=== PATIENT | male | born 1955 | race Caucasian/White ===

== ENCOUNTER → 2019-10-15 08:51 | Outpatient (CLI) | payer BC, SELFPAY ==
--- NOTE | 2019-10-15 08:57 | US_ITS ---
PROCEDURE: US ABDOMEN LIMITED CLINICAL INDICATION: ELEVATED LIVER ENZYMES COMPARISON: No exams were available for comparison FINDINGS: PANCREAS: Unremarkable. No obvious mass or abnormal fluid collection. No ductal dilatation LIVER: There is diffuse increased echogenicity of the liver with poor through transmission of sound consistent with fatty liver RIGHT KIDNEY: Unremarkable. Normal size and echogenicity. No hydronephrosis GALLBLADDER: Status post cholecystectomy. Common bile duct is normal at 3 mm. IMPRESSION: Fatty liver otherwise negative Dictated by: Anoop Bowser MD 10/15/2019 20:09 Electronically signed by Anoop Bowser MD in [place] 10/15/2019 20:09
== END ==
PROVIDERS: PCP Internal Medicine; Visit Provider Internal Medicine
DX: R74.8 Abnormal levels of other serum enzymes (principal)
CPT/HCPCS: 76705

== ENCOUNTER 2021-04-10 10:03 | Emergency (ER) | payer BC, SELFPAY ==
[2021-04-10 10:06] VITALS: BP 114/72; PULSE 86; RESP 19; TEMP 36.7; O2SAT 95; BMI 33.2
[2021-04-10 10:17] VITALS: BP 114/72; PULSE 86; RESP 19; TEMP 36.7; O2SAT 95
--- NOTE | 2021-04-10 10:32 | HMH.EDUTC ---
[facility] Disposition Clinical Impression: Left leg cellulitis Disposition: Home, Self-Care Condition on Discharge: Good Instructions: Cellulitis Additional Instructions: Apply warm wet compresses to the affected sites three or four times per day for 15 minutes as tolerated. Take the antibiotics as directed. Elevate your leg as much time as tolerated. Follow up with your regular doctor. GO TO THE ER FOR ANY WORSENING SYMPTOMS OR CONCERNS Prescriptions: Mupirocin [Bactroban 2% Ointment 22gm tube] 1 applicatio TP TID 7 Days #1 tube Transmission Status: Received by [facility] # cephALEXin [cephALEXin 500mg capsule] 500 mg PO Q6H 10 Days #40 cap Transmission Status: Received by [facility] # Referrals: Murray Prajapati [Primary Care Provider] - Time of Disposition: 10:42 Medical Decision Making - Medical Records Medical records reviewed: No: I reviewed the patient's medical records. - Juni Inquiry Pt receiving controlled substance: No Vital Signs: 04/10/21 10:06 04/10/21 10:17 Temperature 98.0 F 98.0 F Temperature Source Oral Pulse Rate 86 Pulse Rate [Left] 86 Respiratory Rate 19 19 Blood Pressure 114/72 Blood Pressure [Right Arm] 114/72 Blood Pressure Mean [Right Arm] 86 02 Sat by Pulse Oximetry 95 [facility] HPI - General Stated complaint: sore on left leg Time Seen by Provider: 04/10/21 10:32 Mode of Arrival: Ambulatory Source of Information: Patient Limitations: No Limitations Description of Symptoms (Recalled from Triage Doc. by RN): Pt c/o left lower leg swelling and redness HEENT Symptoms (Recalled from RN notes): No Resp Symptoms (Recalled from RN notes): No Skin Symptoms (Recalled from RN notes): Yes MS Symptoms (Recalled from RN notes): No Functional Status (Recalled from RN notes): wnl - History of Present Illness Provider Complaint: He states that for the past 2 days he has had a red area on his left lower leg. He denies any injury. He denies any fever or chills, chest pain, and shortness of breath. - Related Data Home Medications Medication Instructions Recorded Confirmed atorvastatin 10 mg tablet 10 mg PO DAILY 04/01/21 04/01/21 lisinopril 20 mg tablet 20 mg PO DAILY 04/01/21 04/01/21 Previous Rx's Medication Instructions Recorded Mupirocin [Bactroban 2% Ointment 1 applicatio TP TID 7 Days #1 tube 04/10/21 22gm tube] cephALEXin [cephALEXin 500mg 500 mg PO Q6H 10 Days #40 cap 04/10/21 capsule] Allergies Allergy/AdvReac Type Severity Reaction Status Date / Time No Known Allergies Allergy Verified 04/10/21 10:16 - Worker's Comp Is this a Worker's Comp case?: No [facility] History - Hepatitis A Screen Drug use history?: No High risk sexual behaviors?: No History of sexually transmitted infection?: No Currently employed?: No Childcare worker?: No Do you have indoor plumbing?: Yes Do you have electricity?: Yes Attestation statement:: This patient has been screened for Hepatitis A risk factors. I have reviewed the patient's past medical history: Yes Medical History: Reports:: Hyperlipidemia, Hypertension Other Medical History: Reports: Arthritis Other Surgeries: Yes: No Previous Surgery, Cholecystectomy, Hernia Repair Amputation: No Fractures: No - Social History Smoking Status: Never smoker Alcohol Intake: current Alcohol Intake Frequency:: 0-2 drinks per day Substance Use Type: denies use Occupational Status: other Housing: house Household Members: spouse Family Hx:: Heart Attack ROS Obtained: Yes All systems reviewed & no additional complaints - Constitutional Constitutional: Denies chills, Denies fever(s) - ENT Ears, Nose, Mouth, and Throat: Denies dizziness, Denies otalgia, Denies sore throat - Cardiovascular Cardiovascular: Denies chest pain - Respiratory Respiratory: Denies chest congestion, Denies cough, Denies dyspnea, Denies stridor, Denies wheezing - Gastrointestinal G
== END 2021-04-10 10:48 | disposition home or self-care (01) ==
PROVIDERS: Emergency Provider Nurse Practitioner Family; PCP Internal Medicine
DX: L03.116 Cellulitis of left lower limb (principal); I10 Essential (primary) hypertension; E78.5 Hyperlipidemia, unspecified; Z79.899 Other long term (current) drug therapy
CPT/HCPCS: 99202; G0463

== ENCOUNTER → 2021-12-09 09:37 | Outpatient (CLI) | payer BC, SELFPAY | PROVIDERS: Visit Provider Nurse Practitioner | DX: Z20.822 Contact with and (suspected) exposure to COVID-19 (principal) | CPT/HCPCS: C9803; U0003; U0005 ==

== ENCOUNTER → 2022-03-01 13:37 | Outpatient (CLI) | payer BC, SELFPAY ==
[2022-03-01 15:08] LABS: Basophils % 0.6 % (0.1-2.0); Eosinophils # 0.1 K/mm3 (0.0-0.4); Eosinophils % 1.8 % (0.1-12.0); Hematocrit 45.4 % (42.0-52.0); Hemoglobin 15.4 g/dL (14.1-18.0); Lymphocytes # 1.8 K/mm3 (0.7-4.5); Mean Corpuscular HGB Conc 33.9 g/dL (31.8-35.4); Mean Corpuscular Hemoglobin 32.5 pg (27.0-31.2); Mean Corpuscular Volume 95.9 fl (80-94); Mean Platelet Volume 11.1 fl (7.4-10.4); Monocytes # 0.5 K/mm3 (0.1-1.0); Monocytes % 8.9 % (1.7-9.3); Neutrophils % 55.7 % (37.0-80.0); Platelet Count 129 K/mm3 (142-424); Red Blood Count 4.73 M/mm3 (4.60-6.20); Red Cell Distribution Width 14.4 % (11.5-17.5); White Blood Count 5.4 K/mm3 (4.8-10.8)
[2022-03-01 17:28] LABS: Alanine Aminotransferase 108 U/L (12-78); Albumin Level 3.9 g/dl (3.5-5.0); Albumin/Globulin Ratio 1.6 (1.1-1.8); Alkaline Phosphatase 156 U/L (38-126); Anion Gap 11.1 mEq/L (5-15); Aspartate Amino Transferase 92 U/L (17-59); Blood Urea Nitrogen 12 mg/dl (9-20); Calcium 8.8 mg/dl (8.4-10.2); Carbon Dioxide 27 mmol/L (22.0-30.0); Chloride 104 mmol/L (98-107); Chol/HDL Ratio 2.8 (1-3.5); Cholesterol 158 mg/dl (140-200); Estimated Glomerular Filt Rate 97 ml/min (>60); GFR (African American) 117 ML/MIN (>60); Globulin 2.5 g/dL (1.3-3.2); Glucose 69 mg/dl (74-100); HDL Cholesterol 56 mg/dl (40-60); Potassium 4.1 mmoL/L (3.5-5.1); Sodium 138 mmol/L (136-145); Total Protein,Serum 6.4 g/dl (6.3-8.2); Triglycerides 98 mg/dl (30-150); VLDL Cholesterol 20 mg/dL (0-40)
[2022-03-01 17:39] LABS: Direct LDL Cholesterol 70.85 mg/dL (100-129)
[2022-03-01 18:01] LABS: Prostate Specific Ag Screen 3.7 ng/ml (0.0-4.0)
== END ==
PROVIDERS: Visit Provider Internal Medicine
DX: I10 Essential (primary) hypertension (principal); E78.5 Hyperlipidemia, unspecified; K75.81 Nonalcoholic steatohepatitis (NASH); N40.1 Benign prostatic hyperplasia with lower urinary tract symptoms; Z12.5 Encounter for screening for malignant neoplasm of prostate
CPT/HCPCS: 80053; 80061; 85025; G0103

== ENCOUNTER → 2022-09-14 12:47 | Outpatient (CLI) | payer BC, SELFPAY ==
[2022-09-14 16:59] LABS: Basophils % 0.8 % (0.1-2.0); Eosinophils # 0.1 K/mm3 (0.0-0.4); Eosinophils % 3.7 % (0.1-12.0); Hematocrit 47.1 % (42.0-52.0); Hemoglobin 15.8 g/dL (14.1-18.0); Lymphocytes # 1.6 K/mm3 (0.7-4.5); Lymphocytes % 41.5 % (10-50); Mean Corpuscular HGB Conc 33.5 g/dL (31.8-35.4); Mean Corpuscular Hemoglobin 32.3 pg (27.0-31.2); Mean Corpuscular Volume 96.5 fl (80-94); Mean Platelet Volume 11.6 fl (7.4-10.4); Monocytes # 0.4 K/mm3 (0.1-1.0); Monocytes % 10.5 % (1.7-9.3); Neutrophils # 1.7 K/mm3 (1.8-7.8); Neutrophils % 43.5 % (37.0-80.0); Platelet Count 93 K/mm3 (142-424); Red Blood Count 4.88 M/mm3 (4.60-6.20); Red Cell Distribution Width 14.4 % (11.5-17.5); White Blood Count 3.9 K/mm3 (4.8-10.8)
[2022-09-14 18:34] LABS: Alanine Aminotransferase 195 U/L (12-78); Albumin Level 3.5 g/dl (3.5-5.0); Albumin/Globulin Ratio 1.3 (1.1-1.8); Alkaline Phosphatase 193 U/L (38-126); Aspartate Amino Transferase 242 U/L (17-59); Bilirubin,Total 1.8 mg/dl (0.2-1.3); Blood Urea Nitrogen 12 mg/dl (9-20); Calcium 8.5 mg/dl (8.4-10.2); Carbon Dioxide 27 mmol/L (22.0-30.0); Chloride 102 mmol/L (98-107); Chol/HDL Ratio 2.9 (1-3.5); Cholesterol 159 mg/dl (140-200); Estimated Glomerular Filt Rate 96 ml/min (>60); GFR (African American) 117 ML/MIN (>60); Globulin 2.6 g/dL (1.3-3.2); Glucose 66 mg/dl (74-100); HDL Cholesterol 54 mg/dl (40-60); Sodium 138 mmol/L (136-145); Total Protein,Serum 6.1 g/dl (6.3-8.2); Triglycerides 85 mg/dl (30-150); VLDL Cholesterol 17 mg/dL (0-40)
[2022-09-14 18:45] LABS: Direct LDL Cholesterol 76.03 mg/dL (100-129)
== END ==
PROVIDERS: PCP Internal Medicine; Visit Provider Internal Medicine
DX: I10 Essential (primary) hypertension (principal); E78.5 Hyperlipidemia, unspecified; K75.81 Nonalcoholic steatohepatitis (NASH)
CPT/HCPCS: 80053; 80061; 85025

== ENCOUNTER → 2023-03-31 11:34 | Outpatient (CLI) | payer BC, SELFPAY ==
[2023-03-31 12:41] LABS: Basophils # 0.1 K/mm3 (0-0.2); Basophils % 0.9 % (0.1-2.0); Eosinophils # 0.1 K/mm3 (0.0-0.4); Eosinophils % 2.2 % (0.1-12.0); Hematocrit 43.6 % (42.0-52.0); Hemoglobin 14.7 g/dL (14.1-18.0); Lymphocytes # 2.3 K/mm3 (0.7-4.5); Lymphocytes % 44.1 % (10-50); Mean Corpuscular HGB Conc 33.7 g/dL (31.8-35.4); Mean Corpuscular Hemoglobin 31.4 pg (27.0-31.2); Mean Platelet Volume 10.8 fl (7.4-10.4); Monocytes # 0.4 K/mm3 (0.1-1.0); Neutrophils # 2.3 K/mm3 (1.8-7.8); Neutrophils % 44.8 % (37.0-80.0); Platelet Count 95 K/mm3 (142-424); Red Blood Count 4.69 M/mm3 (4.60-6.20); Red Cell Distribution Width 14.3 % (11.5-17.5); White Blood Count 5.2 K/mm3 (4.8-10.8)
[2023-03-31 13:23] LABS: Alanine Aminotransferase 41 U/L (12-78); Albumin Level 3.4 g/dl (3.5-5.0); Albumin/Globulin Ratio 1.5 (1.1-1.8); Alkaline Phosphatase 171 U/L (38-126); Anion Gap 14.7 mEq/L (5-15); Aspartate Amino Transferase 59 U/L (17-59); Bilirubin,Total 1.8 mg/dl (0.2-1.3); Blood Urea Nitrogen 10 mg/dl (9-20); Calcium 8.4 mg/dl (8.4-10.2); Carbon Dioxide 25 mmol/L (22.0-30.0); Chloride 103 mmol/L (98-107); Chol/HDL Ratio 2.3 (1-3.5); Cholesterol 132 mg/dl (140-200); Estimated Glomerular Filt Rate 112 ml/min (>60); GFR (African American) 136 ML/MIN (>60); Globulin 2.2 g/dL (1.3-3.2); Glucose 77 mg/dl (74-100); HDL Cholesterol 58 mg/dl (40-60); Potassium 3.7 mmoL/L (3.5-5.1); Sodium 139 mmol/L (136-145); Total Protein,Serum 5.6 g/dl (6.3-8.2); Triglycerides 86 mg/dl (30-150); VLDL Cholesterol 17 mg/dL (0-40)
[2023-03-31 13:53] LABS: Prostate Specific Ag Screen 3.8 ng/ml (0.0-4.0)
== END ==
PROVIDERS: PCP Internal Medicine; Visit Provider Internal Medicine
DX: I10 Essential (primary) hypertension (principal); E78.5 Hyperlipidemia, unspecified; K75.81 Nonalcoholic steatohepatitis (NASH); N40.1 Benign prostatic hyperplasia with lower urinary tract symptoms; Z12.5 Encounter for screening for malignant neoplasm of prostate
CPT/HCPCS: 80053; 80061; 85025; G0103

== ENCOUNTER 2024-05-08 15:00 | Outpatient (CLI) | payer BC, SELFPAY ==
[2024-05-08 14:26] LABS: Basophils % 0.7 % (0.1-2.0); Eosinophils # 0.1 K/mm3 (0.0-0.4); Hematocrit 48.1 % (42.0-52.0); Hemoglobin 15.8 g/dL (14.1-18.0); Lymphocytes # 2.5 K/mm3 (0.7-4.5); Lymphocytes % 44.6 % (10-50); Mean Corpuscular HGB Conc 32.8 g/dL (31.8-35.4); Mean Corpuscular Hemoglobin 31.8 pg (27.0-31.2); Mean Corpuscular Volume 96.9 fl (80-94); Mean Platelet Volume 11.3 fl (7.4-10.4); Monocytes # 0.4 K/mm3 (0.1-1.0); Monocytes % 6.8 % (1.7-9.3); Neutrophils # 2.6 K/mm3 (1.8-7.8); Neutrophils % 45.9 % (37.0-80.0); Platelet Count 78 K/mm3 (142-424); Red Blood Count 4.97 M/mm3 (4.60-6.20); White Blood Count 5.6 K/mm3 (4.8-10.8)
[2024-05-08 14:54] LABS: Alanine Aminotransferase 57 U/L (12-78); Albumin Level 3.3 g/dl (3.5-5.0); Albumin/Globulin Ratio 1.3 (1.1-1.8); Alkaline Phosphatase 149 U/L (38-126); Anion Gap 9.8 mEq/L (5-15); Aspartate Amino Transferase 85 U/L (17-59); Bilirubin,Total 2.6 mg/dl (0.2-1.3); Blood Urea Nitrogen 7 mg/dl (9-20); Calcium 8.7 mg/dl (8.4-10.2); Carbon Dioxide 26 mmol/L (22.0-30.0); Chloride 107 mmol/L (98-107); Chol/HDL Ratio 2.7 (1-3.5); Cholesterol 148 mg/dl (140-200); Estimated Glomerular Filt Rate 112 ml/min (>60); GFR (African American) 135 ML/MIN (>60); Globulin 2.5 g/dL (1.3-3.2); Glucose 72 mg/dl (74-100); HDL Cholesterol 54 mg/dl (40-60); Potassium 3.8 mmoL/L (3.5-5.1); Sodium 139 mmol/L (136-145); Total Protein,Serum 5.8 g/dl (6.3-8.2); Triglycerides 74 mg/dl (30-150); VLDL Cholesterol 15 mg/dL (0-40)
[2024-05-08 15:04] LABS: Direct LDL Cholesterol 75.13 mg/dL (100-129)
[2024-05-08 15:23] LABS: Prostate Specific Ag Screen 4.5 ng/ml (0.0-4.0)
== END 2024-05-08 23:59 | disposition home or self-care (01) ==
LOC: LAB.DROPOF 15:02
PROVIDERS: PCP Internal Medicine; Visit Provider Internal Medicine
DX: Z12.5 Encounter for screening for malignant neoplasm of prostate (principal); I10 Essential (primary) hypertension; E78.5 Hyperlipidemia, unspecified; K75.81 Nonalcoholic steatohepatitis (NASH)
CPT/HCPCS: 80053; 80061; 85025; G0103

== ENCOUNTER 2025-05-15 14:15 | Outpatient (CLI) | payer BC, SELFPAY ==
--- OUTSIDE RECORDS SUMMARY | 2025-03-28 08:20 | XMS_ITS | Encounter Summary ---
Author Organization [facility] Address [address] [place] [address] Care Team Providers Care Engineering Recruiter Name Role Phone Murray Prajapati MD Primary Care Provider [phone] Jaja Camara VP ORGANIZATIONAL DEVELOPMENT Unavailable [phone] Reason for Visit * Consultation (Routine) - Closed Specialty Diagnoses / Procedures Referred By Silverio barone Referred To Contact Transplant Diagnoses End-stage liver disease (CMS/HCC) Marco Joiner MD [address] [facility] [address] [place] [phone] Phone: tel: fax: [facility] [address] [address] Phone: tel: fax: Referral ID Status Reason Start Date Expiration Date V isits Requested Visits Authorized [id number] Closed Specialty Services Required 03/27/2025 09/26/2026 1 1 Encounter Details Date Type Department Care Team (Late st Contact Info) Description 03/28/2025 8:20 AM EDT Office Visit [facility] [address] [facility] [address] [place] [phone] Virginia Campa MD [address] [facility] [address] [place] [phone] Other cirrhosis of liver (CMS/HCC) (Primary Dx); Pre-transplant evaluation for liver transplant; Cellulitis of left lower extremity; End-stage liver disease (CMS/HCC); Esophageal varices without bleeding, unspecified esophageal varices type (CMS/HCC); Alcohol use disorder; Primary prostate adenocarcinoma (CMS/HCC); History of liver biopsy; 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; Primary hypertension; Hyperbilirubinemia Social History Tobacco Use Types Packs/Day Years Used Date Smoking Tobacco: Never Smokeless Tobacco: Never PHQ-2 Answer Date Recorded Patient Health Questionnaire-2 Score 0 03/28/2025 PHQ-2A Answer Date Recorded Patient Health Questionnaire-2 Score 0 05/04/2023 Sex and Gender Information Value Date Recorded Sex Assigned at Not on file Legal Sex Male 8:25 PM EDT Gender Identity Not on file Sexual Orientation Not on file documented as of this encounter Last Filed Vital Signs Vital Sign Reading Time Taken Comments Blood Pressure 127/81 03/28/2025 6:46 AM EDT Pulse 80 03/28/2025 6:46 AM EDT Temperature 36.5 C (97.7 F) 03/28/2025 6:46 AM EDT Respiratory Rate 16 03/28/2025 6:46 AM EDT Oxygen Saturation 95% 03/28/2025 6:46 AM EDT Inhaled Oxygen Concentration - - Weight 112 kg (246 lb 14.6 oz) 03/28/2025 6:46 A M EDT Height 175.3 cm (5' 9 ) 03/28/2025 6:46 AM EDT Body Mass Index 36.46 03/28/2025 6:46 AM EDT documented in this encounter Functional Status * Over the past 2 weeks, how often have you been bothered by any of the following problems? Question Answer Date of Assessment Author Little interest or pleasure in doing things Not at all 03/28/2025 6:50 AM EDT Wm Harding Feeling down, depressed, or hopeless Not at all 03/28/2025 6:50 AM EDT Wm Harding Patient Health Questionnaire -2 Score 0 03/28/2025 6:50 AM EDT Wm Harding documented as of this encounter Miscellaneous Notes * Clinician Note - Pepito Sapp - 03/28/2025 8:20 AM EDT I visited Eber to introduce precision devices inspector/tester support and establish rapport. I provided supportive listening as patient spoke about his health journey and shared about his lifeand career. I made him aware of the ongoing availability of precision devices inspector/tester support and will follow up as able to build rapport and assess for needs related to spiritual and emotional support. * Patient Instructions - Virginia Campa MD - 03/28/2025 8:20 AM EDT See PCP pat re: cellulitis/infection in your leg Stop lisinopril and start Carvedilol 3.125mg twice a day to prevent varices from bleeding Monitor your BP, if BP is> 140, let us know, we can increase carvedilol Bactrim antibiotics sent to your pharmacy CT liver in the next few weeks to followup prior liver lesion * Progress Notes - Virginia Campa MD - 03/28/2025 8:20 AM EDT Referring provider: Caleb Suresh MD Subjective: Chief complaint: consult for transplant evaluation History of Present Illness: Mr. Eber Loew is here for initial consultation for transplant evaluation. Cirrhosis diagnosed 2022- had a 3m LR3 in 2022- biopsied- and this showed cirrhosis and no malignancy Had increased alcohol intake 4-6 shots/week during initial transplant evaluation several years ago Reports he is abstinent for 3-4months, then resumes occasional alcohol around 2- 3 glasses of wine afew times a week to 2 shots of bourbon a few times a week, last drink about a week ago. Compensated Denies melena, hematemesis, hematochezia, abdominal distention, change in mental status, jaundice. Had recent biopsy in left leg 10 days ago and had squamous cell skin cancer Has had mild bilateral leg edema the last few months Erythema started a few days ago, and had fever 101 Saw dermatology recently- who recommended mupirocin and steroid cream, but this did not help and his bag printer recommended him to see hepatology due to his cirrhosis and noted jaundice His bilirubin was 3 in July and 3.7 today Recently diagnosed with prostate adenoCA, 02/11, tanika score 4+3=7, localized to left id, left apx,left peripheral zone; psa 4.7; decipher genorisk group: high 0.81 Planning robot-assisted laparoscopic prostatectomy with b/l pelvic lymph node dissection Pt reports that he is seeking a 2nd opinion with [facility], scheduled next month Last imaging PET 01/22: no FDG in liver; psma avid lesion, no distant/local met US 08/13: cirrhosis; no obvious focal liver lesion EGD 08/13: gr1 ev; moderate PHG no focal liver lesion Colonoscopy 01/202323 grade 2 internal hemorrhoids, diminutive colonic polyps x3 (tubular adenoma in ascending and hyperplastic polyp (sigmoid)' Past Medical History: Medical History[1] Past Surgical History: Surgical History[2] Social History: lives with , no history of illicit drug use/alcohol/smoking Family History: No family history of liver disease or cancer Review of Systems: 14-point review of systems was negative, except as per HPI. Medications: Current Medications[3] Objective: Physical Exam Visit Vitals BP 127/81 Pulse 80 Temp 36.5 ??C (97.7 ??F) Ht 1.753 m (5' 9 ) Wt 112 kg (246 lb 14.6 oz) SpO2 95% BMI 36.46 kg/m?? General : no acute distress, no peripheral and temporal muscle wasting Skin : no jaundice, no spider telangiectasias or palmar erythema; see description of left leg below Eyes : mild scleral icterus , pink conjunctivae ENMT : intact, mucous membranes moist, no apparent injury Head/Neck : neck supple, no apparent injury Resp/Thorax : normal respiratory effort, patent airways, clear to auscultation bilaterally, normal breath sounds Cardiovascular: regular rate and rhythm, no murmurs Gastrointestinal : soft, non-tender, no hepatomegaly, no splenomegaly, no ascites Musculoskeletal ROM Intact, No Joint Swelling, Normal Strength Extremities : moderate bilateral leg edema, no cyanosis; left leg is moderately erythematous Neurological : alert and oriented x 4, absence of asterixis, no focal deficit Lymphatics : no significant lymphadenopathy Psychological : appropriate mood and behavior Labs in last 18 hours CBC WBC 6.65 Hb 15.2 Plt 92 (L) Hct 45.2 ANC ?? INR 1.5 (H), PTT ??, Anti-Xa ?? BMP Na 139 Cl 105 BUN 10 Glu 131 (H) K 3.6 Co2 24 Cr 0.82 Ca 8.5 (L) iCa ?? Mg ??, Phos ?? Lactate ?? LFT AST 96 (H) AlkPhos 170 (H) T Prot 5.9 (L) ALT 53 (H) Bili 3.7 (H) Alb ?? D.Bili ?? Assessment and Plan Diagnoses and all orders for this visit: Other cirrhosis of liver (CMS/HCC) (Primary) Pre-transplant evaluation for liver transplant Cellulitis of left lower extremity - Blood Culture (Aerobic/Anaerobet Set); Future - Discontinue: sulfamethoxazole-trimethoprim (Bactrim DS) 800-160 MG tablet; Take 1 tablet by mouth2 times a day for 7 days. - sulfamethoxazole-trimethoprim (Bactrim DS) 800-160 MG tablet; Take 2 tablets by mouth 2 times a day for 7 days. End-stage liver disease (CMS/HCC) - Initial Clinic Evaluation - Transplant Hepatology Esophageal varices without bleeding, unspecified esophageal varices type (CMS/HCC) - carvedilol (Coreg) 3.125 MG tablet; Take 1 tablet by mouth 2 times a day. 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 Primary hypertension Hyperbilirubinemia Compensated cirrhosis Alcohol use disorder Recent diagnosis of localized prostate cancer ([place] 7) MELD score MELD 3.0: 16 at 03/28/2025 6:34 AM MELD-Na: 16 at 03/28/2025 6:34 AM Calculated from: Serum Creatinine: 0.82 mg/dL (Using min of 1 mg/dL) at 03/28/2025 6:34 AM Serum Sodium: 139 mmol/L (Using max of 137 mmol/L) at 03/28/2025 6:34 AM Total Bilirubin: 3.7 mg/dL at 03/28/2025 6:34 AM Serum Albumin: 3.4 g/dL at 03/28/2025 6:34 AM INR(ratio): 1.5 at 03/28/2025 6:34 AM Age at listing (hypothetical): 69 years Sex: Male at 03/28/2025 6:34 AM - I reviewed his urology notes: prostate adenoCA, 02/11, tanika score 4+3=7, localized to left id, left apx,left peripheral zone; psa 4.7; decipher genorisk group: high 0.81 and they were planning robot-assisted laparoscopic prostatectomy with b/l pelvic lymph node dissection Pt reports that he is seeking a 2nd opinion with [facility], scheduled next month - advised that his continued alcohol use after cirrhosis diagnosis, even if intermittent and recently diagnosed prostate cancer may affect his transplant candidacy but not an absolute contraindication - recommend to assess risk/staging of his prostate cancer to guide survival risk and time interval to liver transplant/wait time. Based on [place] [employer] of [employer]plantation: pre-transplant solid organ malignancy and organ transplant candidacy: a consensus expert opinion statement (AJT 2019; Juventino et al)--https://pubmed.ncbi.nlm.nih.gov/13131052: - if Low-volume intermediate risk with one of the following criteria: PSA >10, tanika 7 (grade group 2 or 3) or T2b-- If surveillance, no wait time; it treatment initiated nomogram (www.nomograms.org) predicts cancer-specific over the next 15 years <10%, no wait time needed before OLT - Advised importance of complete alcohol cessation and offered referral to addiction medicine for AUD treatment - offered to refer to addiction medicine, pt wanted to defer for now and reports that he will stop on his own - Defer transplant evaluation at this time. Left leg cellulitis; had recent skin biopsy showing squamous cell cancer by dermatology 10 days agoand started having erythema and episode of fever a few days ago - obtain blood culture - hx of MRSA in the past per pt - start Trimethoprim/Sulfamethoxazole 2tabs bid for 1 week - advised to followup with his PCP pat - his left skin SCC will not preclude LT History of 3cm LR3 liver lesion in 2022- this was biopsied and was negative and showed cirrhosis. Obtain CT liver. AFP today negative; no liver lesions on US 08/13 Esophageal varices, gr1 without history of bleeding HTN, on lisinopril 20mg/day - stop lisinopril and start Carvedilol 3.125mg twice a day to prevent varices from bleeding Health maintenance- follow-up hepatitis A and B serologies to assess need for vaccines. Colonoscopy 2022- small TA and 1 HP- repeat in 7 years Return to clinic in 2months for follow-up. A total of 82 minutes was spent during this visit for care coordination, including review of medical records and previous notes, obtaining history and physical exam, ordering tests, changes in medications, counseling patient about cirrhosis, natural history,prognosis, potential complications of cirrhosis and management of complications of cirrhosis, indications/contraindications for liver transplant, benefits/risks of transplant including process of transplant evaluation, concept of MELD score,instructions for management, consult with peers and clinical documentation in the patient's clinic note [1] Past Medical History: Diagnosis Date Hypertension [2] Past Surgical History: Procedure Laterality Date CHOLECYSTECTOMY 2009 lap KNEE ARTHROSCOPY W/ MENISCAL REPAIR UMBILICAL HERNIA REPAIR [3] Current Outpatient Medications: atorvastatin (Lipitor) 10 MG tablet, Take 10 mg by mouth 1 (one) time each day., Disp: , Rfl: clobetasol (Temovate) 0.05 % external solution, , Disp: , Rfl: DIPHENHYDRAMINE HCL, SLEEP, PO, Take 16 mg by mouth at night if needed (sleep)., Disp: , Rfl: lisinopril 20 MG tablet, Take 20 mg by mouth 1 (one) time each day., Disp: , Rfl: uhygpkhxbaif-rbcl-eprwyfnt-folic acid (Centrum) chewable tablet, Chew 1 tablet 1 (one) time each day., Disp: , Rfl: mupirocin (Bactroban) 2 % ointment, , Disp: , Rfl: sulfamethoxazole-trimethoprim (Bactrim DS) 800-160 MG tablet, Take 2 tablets by mouth 2 times a dayfor 7 days., Disp: 28 tablet, Rfl: 0 triamcinolone (Kenalog) 0.1 % ointment, Apply 1 Application topically 2 times a day., Disp: , Rfl: Vitamin E 450 MG (1000 UT) capsule, Take 1,000 Units by mouth 1 (one) time each day., Disp: , Rfl: Ascorbic Acid (VITAMIN C GUMMIE PO), Take 1 Chewable tablet by mouth 1 (one) time each day. (Patient not taking: Reported on 05/04/2023), Disp: , Rfl: carvedilol (Coreg) 3.125 MG tablet, Take 1 tablet by mouth 2 times a day., Disp: 60 tablet, Rfl: 2 Melatonin 5 MG tablet tablet, Take 10 mg by mouth at night if needed for sleep., Disp: , Rfl: psyllium (Metamucil) 58.6 % powder, Take 1 packet by mouth 1 (one) time each day., Disp: , Rfl: documented in this encounter Plan of Treatment Upcoming Encounters Date Type Department Care Team (Late st Contact Info) Description 05/30/2025 8:45 AM EDT Clinical Support [facility] [address] [facility] [address] [place] [phone] 05/30/2025 10:20 AM EDT Office Visit [facility] [place] [id number] [facility] [address] [place] [phone] Serjio Jacobo MD [address] [facility] [address] [place] [address] 06/12/2025 Hospital Encounter [facility] [address] [place] [address] Dyllan Paul MD [id number] [place] [address] 06/24/2025 2:45 PM EDT Office Visit [facility] [address] [place] [address] Dyllan Paul MD [id number] [place] [phone] Scheduled Procedures Name Priority Associated Diagnoses Date/Ti me PROSTATECTOMY, RADICAL, ROBOT-ASSISTED Prostate CA (CMS/HCC) documented as of this encounter Results * Blood Culture (Aerobic/Anaerobet Set) (03/28/2025 9:43 AM EDT) Culture No growth at day 5 KEELY 04/02/2025 11:01 AM EDT [facility] Blood Structure of part of right upper limb / Unknown Venipuncture / Unknown 03/28/2025 9:43 AM EDT 03/28/2025 10:12 AM EDT us Virginia Cmapa MD LAB MICROBIOLOGY - GENERAL ORDERABLES Final Result [facility] [address] [place] [address] documented in this encounter Visit Diagnoses Diagnosis Other cirrhosis of liver (CMS/HCC)- Primary Pre-transplant evaluation for liver transplant Cellulitis of left lower extremity End-stage liver disease (CMS/HCC) Other sequelae of chronic liver disease Esophageal varices without bleeding, unspecified esophageal varices type (CMS/HCC) Alcohol use disorder Primary prostate adenocarcinoma (CMS/HCC) Malignant neoplasm of prostate History of liver biopsy 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 Primary hypertension Unspecified essential hypertension Hyperbilirubinemia Disorders of bilirubin excretion documented in this encounter Additional Health Concerns Assessment Noted Time A fall risk assessment has been complete d for the patient 03/28/2025 6:50 AM EDT A Body Mass Index follow-up plan has been documented for the patient 03/28/2025 9:31 AM EDT documented as of this encounter Care Teams Engineering Recruiter Relationship Specialty Start Date End Date Murray Prajapati MD [address] [facility] [address] [place] [address] PCP - General 03/06/23 Jaja Camara APRN [address] [facility] [address] [place] [address] Referring Physician Gastroenterology 03/06/23 documented as of this encounter
--- OUTSIDE RECORDS SUMMARY | 2025-04-03 07:10 | XMS_ITS | Encounter Summary ---
Author Organization [facility] Address [address] [place] [address] Care Team Providers Care Foam Dispenser Name Role Phone Murray Prajapati MD Primary Care Provider [phone] Jaja Camara INTERNAL CONTROLS ANALYST Unavailable [phone] Reason for Referral * Imaging (Routine) - Closed Specialty Diagnoses / Procedures Referred By Silverio barone Referred To Contact Radiology Diagnoses End-stage liver disease (CMS/HCC) Alcoholic cirrhosis, unspecified whether ascites present (CMS/HCC) Hepatic lesion Procedures CT Liver Serjio Jacobo MD [address] [address] Phone: tel: fax: Referral ID Status Reason Start Date Expiration Date Visits Re quested Visits Authorized [id number] Closed 04/01/2025 10/01/2026 1 1 Reason for Visit * Imaging (Routine) - Closed Specialty Diagnoses / Procedures Referred By Silverio barone Referred To Contact Radiology Diagnoses End-stage liver disease (CMS/HCC) Alcoholic cirrhosis, unspecified whether ascites present (CMS/HCC) Hepatic lesion Procedures CT Liver Serjio Jacobo MD [address] [address] [address] Phone: tel: fax: Referral ID Status Reason Start Date Expiration Date Visits Re quested Visits Authorized [id number] Closed 04/01/2025 10/01/2026 1 1 Encounter Details Date Type Department Care Team (Latest Contact Info) Description 04/03/2025 7:10 AM EDT - 04/03/2025 11:59 PM EDT Hospital Encounter [facility] [address] [place] [address] End-stage liver disease (CMS/HCC); Alcoholic cirrhosis, unspecified whether ascites present (CMS/HCC); Hepatic lesion Discharge Disposition: Home or Self Care Social History Tobacco Use Types Packs/Day Years [...] on file documented as of this encounter Medications at Time of Discharge Ascorbic Acid (VITAMIN C GUMMIE PO) Take 1 Chewable tablet by mouth 1 (one) time each day. atorvastatin (Lipitor) 10 MG tablet Take 10 mg by mouth 1 (one) time each day. 04/10/2023 carvedilol (Coreg) 3.125 MG tabletIndications :Esophageal varices without bleeding, unspecified esophageal varices type (CMS/HCC) Take 1 tablet by mouth 2 times a day. 60 tablet 2 03/28/2025 clobetasol (Temovate) 0.05 % external solution 03/06/2025 DIPHENHYDRAMINE HCL, SLEEP, PO Take 16 mg by mouth at night if needed (sleep). ketoconazole (NIZOral) 2 % shampoo 03/06/2025 lisinopril 20 MG tablet Take 20 mg by mouth 1 (one) time each day. Melatonin 5 MG tablet tablet Take 10 mg by mouth at night if needed for sleep. multivitamin-iron -minerals-folic acid (Centrum) chewable tablet Chew 1 tablet 1 (one) time each day. mupirocin (Bactroban) 2 % ointment 03/26/2025 psyllium (Metamucil) 58.6 % powder Take 1 packet by mouth 1 (one) time each day. triamcinolone (Kenalog) 0.1 % ointment Apply 1 Application topically 2 times a day. 03/26/2025 Vitamin E 450 MG (1000 UT) capsule Take 1,000 Units by mouth 1 (one) time each day. sulfamethoxazole- trimethoprim (Bactrim DS) 800-160 MG tabletIndications :Cellulitis of left lower extremity Take 2 tablets by mouth 2 times a day for 7 days. 28 tablet 03/28/2025 documented as of this encounter Miscellaneous Notes * Laury Espino Hector Nancy Syed R - 04/03/2025 7:18 AM EDT Images from the original note were not included. 1639 Caring for Yourself after Contrast Imaging If you had ORAL contrast: ?? You can go back to your normal diet and activities as tolerated. ?? Drink plenty of fluids, unless told otherwise. If you had IV contrast: ?? You can go back to your normal diet and activities as tolerated. ?? Drink plenty of fluids, unless told otherwise. ?? Leave a bandage on the site for 30 minutes (where the IV was inserted or blood was drawn). If you had Intravesical (bladder) contrast: ?? Return to normal diet and activity. What you need to know about delayed reaction to IV contrast What is IV Contrast? ?? Contrast is a dye that is put into your body through an IV. ?? It is used for imaging scans such as CT scans and MRIs. ?? The contrast makes blood vessels, organs and other parts of your body show up better on the scan. What do I need to do after IV contrast? ?? Drink lots of fluids. This will help flush the contrast out of your system. ?? Drink 2-3 extra glasses or bottles of water within 4 hours of your scan. What is a contrast reaction? ?? A contrast reaction is a bad side effect from the contrast dye. ?? It is rare but it does happen. ?? They can be mild - such as sneezing, itching, or hives. ?? They can be severe - such as trouble breathing, throat swelling, and irregular heart beat. When do these reactions happen? ?? They often happen right after the contrast is injected. ?? Some happen hours after going home. Go to the nearest Emergency Department right away if you have any of these symptoms after you leavethe clinic or hospital. ?? Sneezing ?? Itching in your mouth, throat, eyes, ears, or skin ?? Rash or hives ?? Throwing up or stomach sickness ?? High heart rate or ?racing? of your heart ?? Feeling dizzy or woozy ?? Feeling short of breath or like you can?t take a deep breath ?? Feeling very anxious for no other reason It is very important that these reactions be treated. Tell the doctor or nurse that you are having a reaction to IV contrast dye. Do not ignore any sign of a reaction! All reactions must be assessed by a doctor. Call 911 if you are alone and your reaction is more than mild sneezing or itching. If you have a mild reaction, call to speak with a Radiologist, explain that you havehad a contrast reaction, as this needs to be added to your medical record. documented in this encounter Plan of Treatment Upcoming Encounters Date Type Department Care Team (Late st Contact Info) Description 05/30/2025 8:45 AM EDT Clinical Support [facility] [address] [place] [address] 05/30/2025 10:20 AM EDT Office Visit [facility] [address] [place] [address] Serjio Jacobo MD [address] [place] [address] 06/12/2025 Hospital Encounter [facility] [address] [place] [address] Dyllan Paul MD [address] [place] [address] 06/24/2025 2:45 PM EDT Office Visit [facility] [address] [place] [address] Dyllan Paul MD [address] [place] [address] Scheduled Procedures Name Priority Associated Diagnoses Date/Ti me PROSTATECTOMY, RADICAL, ROBOT-ASSISTED Prostate CA (CMS/HCC) documented as of this encounter Procedures Procedure Name Priority Date/Time Associated Diagnosis Comments CT ABDOMEN PELVIS W AND WO IV CONTRAST Routine 04/03/2025 8:21 AM EDT End-stage liver disease (CMS/HCC) Alcoholic cirrhosis, unspecified whether ascites present (CMS/HCC) Hepatic lesion documented in this encounter Results * CT Liver (04/03/2025 8:21 AM EDT) Anatomical Region Laterality Modality Abdomen, Pelvis Computed Tomogra phy Impressions 04/03/2025 9:01 AM EDT Focal Hepatic Observations: Multiple small hypoattenuating nodules throughout the liver. They do not show arterial phase hyperenhancement but are hypoenhancing to the normal hepatic parenchyma on the delayed phase. This suggests washout. This meets LR 3 criteria. Additional characterization with MRI is recommended CRITICAL RESULT: No. COMMUNICATION: Per this written report. LI-RADS M = Probably or definitely malignant but not HCC specific LI-RADS TI-V = Definitely tumor in vein LI-RADS 5 = Definitely hepatocellular carcinoma (concordant with OPTN*) LI-RADS 4 = Probably hepatocellular carcinoma LI-RADS 3 = Intermediate probability for hepatocellular carcinoma LI-RADS 2 = Probably benign LI-RADS 1 = Definitely benign LI-RADS NC = Not categorized secondary to image degradation or omission LI-RADS TR Nonviable - Treated, probably or definitely not viable LI-RADS TR Equivocal - Treated, equivocally viable LI-RADS TR Nonprogressing - Treated with radiation, masslike enhancement, which is stable or decreased in size over time after LRT LI-RADS TR Viable - Treated, probably or definitely viable LI-RADS TR Nonevaluable - Cannot be categorized due to image degradation or omission NOTE: LI-RADS categories should be interpreted in the context of other available data, such as biomarkers and the patient's prior probability of developing or having hepatocellular carcinoma. The LI-RADS classification of liver lesions has been adopted to standardize CT and MRI scan reporting in patients at risk for hepatocellular carcinoma. CT/MRI LI- RADS and US LI-RADS are consistent with and integrated into the [place] [employer] for the Study of Liver Diseases (AASLD) 2018 hepatocellular carcinoma (HCC) clinical practice guidance. LI-RADS criteria and documentation are available online at www.acr.org/Quality-Safety/Resources/LIRADS. This report utilizes LI-RADS version 2018 with updated Treatment Response Assessment (TRA) v2024. *OPTN and LI-RADS criteria for definite HCC are identical except for: 10-19 mm observations with nonrim APHE + nonperipheral washout but without enhancing capsule or threshold growth. Implication: Some LR-5 observations do not count as OPTN 5. Drafted by Quentin Oliva MD on 04/03/2025 8:53 AM Final report signed by Quentin Oliva MD on 04/03/2025 9:01 AM Narrative 04/03/2025 9:01 AM EDT CLINICAL INDICATION: Risk for hepatocellular carcinoma Liver failure TECHNIQUE: Multiple axial CT images were obtained of abdomen and pelvis following administration of IV contrast, Omnipaque 350, 100 mL. Images of the abdomen were obtained during arterial, portal venous, and delayed phases. The pelvis was imaged in portal venous phase. Reformatted images in the coronal and sagittal planes were generated from the axial data set to facilitate diagnostic accuracy. Precontrast axial CT images of the abdomen were also obtained. TOTAL DLP (Dose-Length Product): 2398.41 mGy.cm. Please note: The reported value represents the total of one or more individual components during the CT acquisition on this date and at this time, and as such, the same value may appear in more than one CT report depending on the interpreting/reporting physicians. Examination meets LI-RADS technical recommendations. COMPARISON: PETCT February 13, 2025, MRI abdomen March 03, 2023 FINDINGS: Liver, Gallbladder, Biliary Tract: There is cirrhosis of the liver. No arterially enhancing observation. There are multiple hypoenhancing nodules in the liver on the delayed phase. The largest located in hepatic segment 2 measures 13 mm (series 14 image 38). An additional reference nodules located in hepatic segment 5 measures 10 mm (series 14 image 51). Gallbladder is absent. No bile duct dilation. Hepatic Vasculature: Hepatic arterial anatomy is standard. The portal veins are patent. Focal Hepatic Observations: Multiple hypoattenuating nodules on the delayed phase which do not show arterial phase hyperenhancement. This suggests washout. LR 3. Extrahepatic Findings: Spleen: The spleen is enlarged measuring 15.5 cm. Other Solid Abdominal Organs: The pancreas, adrenal glands, and kidneys are normal. GI Tract/Mesentery/Peritoneum: There are paraesophageal varices. Unobstructed small bowel extends into a periumbilical hernia. The appendix is normal. No colonic inflammation. Pelvic Viscera: The bladder is normal. The prostate is large and heterogeneous. Lymph Nodes: No adenopathy is evident. Calcific atherosclerosis of aorta and branch vessels Free Fluid: No free fluid Musculoskeletal: There is a small lytic nodule in L1, likely vertebral hemangioma. Procedure Note Quentin Oliva MD - 04/03/2025 CLINICAL INDICATION: Risk for hepatocellular carcinoma Liver failure TECHNIQUE: Multiple axial CT images were obtained of abdomen and pelvis followingadministration of IV contrast, Omnipaque 350, 100 mL. Images of theabdomen were obtained during arterial, portal venous, and delayed phases.The pelvis was imaged in portal venous phase. Reformatted images in thecoronal and sagittal planes were generated from the axial data set tofacilitate diagnostic accuracy. Precontrast axial CT images of the abdomenwere also obtained. TOTAL DLP (Dose-Length Product): 2398.41 mGy.cm. Please note: The reportedvalue represents the total of one or more individual components during theCT acquisition on this date and at this time, and as such, the same valuemay appear in more than one CT report depending on theinterpreting/reporting physicians. Examination meets LI-RADS technical recommendations. COMPARISON: PETCT February 13, 2025, MRI abdomen March 03, 2023 FINDINGS: Liver, Gallbladder, Biliary Tract: There is cirrhosis of the liver. Noarterially enhancing observation. There are multiple hypoenhancing nodulesin the liver on the delayed phase. The largest located in hepatic segment2 measures 13 mm (series 14 image 38). An additional reference noduleslocated in hepatic segment 5 measures 10 mm (series 14 image 51). Gallbladder is absent. No bile duct dilation. Hepatic Vasculature: Hepatic arterial anatomy is standard. The portalveins are patent. Focal Hepatic Observations: Multiple hypoattenuating nodules on the delayed phase which do not showarterial phase hyperenhancement. This suggests washout. LR 3. Extrahepatic Findings: Spleen: The spleen is enlarged measuring 15.5 cm. Other Solid Abdominal Organs: The pancreas, adrenal glands, and kidneysare normal. GI Tract/Mesentery/Peritoneum: There are paraesophageal varices.Unobstructed small bowel extends into a periumbilical hernia. The appendixis normal. No colonic inflammation. Pelvic Viscera: The bladder is normal. The prostate is large andheterogeneous. Lymph Nodes: No adenopathy is evident. Calcific atherosclerosis of aortaand branch vessels Free Fluid: No free fluid Musculoskeletal: There is a small lytic nodule in L1, likely vertebralhemangioma. IMPRESSION: Focal Hepatic Observations: Multiple small hypoattenuating nodules throughout the liver. They do notshow arterial phase hyperenhancement but are hypoenhancing to the normalhepatic parenchyma on the delayed phase. This suggests washout. This meetsLR 3 criteria. Additional characterization with MRI is recommended CRITICAL RESULT: No. COMMUNICATION: Per this written report. LI-RADS M = Probably or definitely malignant but not HCC specific LI-RADS TI-V = Definitely tumor in vein LI-RADS 5 = Definitely hepatocellular carcinoma (concordant with OPTN*) LI-RADS 4 = Probably hepatocellular carcinoma LI-RADS 3 = Intermediate probability for hepatocellular carcinoma LI-RADS 2 = Probably benign LI-RADS 1 = Definitely benign LI-RADS NC = Not categorized secondary to image degradation or omission LI-RADS TR Nonviable - Treated, probably or definitely not viable LI-RADS TR Equivocal - Treated, equivocally viable LI-RADS TR Nonprogressing - Treated with radiation, masslike enhancement,which is stable or decreased in size over time after LRT LI-RADS TR Viable - Treated, probably or definitely viable LI-RADS TR Nonevaluable - Cannot be categorized due to image degradationor omission NOTE: LI-RADS categories should be interpreted in the context of otheravailable data, such as biomarkers and the patient's prior probability ofdeveloping or having hepatocellular carcinoma. The LI-RADS classificationof liver lesions has been adopted to standardize CT and MRI scan reportingin patients at risk for hepatocellular carcinoma. CT/MRI LI-RADS and USLI-RADS are consistent with and integrated into the [place] Associationfor the Study of Liver Diseases (AASLD) 2018 hepatocellular carcinoma(HCC) clinical practice guidance. LI-RADS criteria and documentation areavailable online at www.acr.org/Quality-Safety/Resources/LIRADS. Thisreport utilizes LI-RADS version 2018 with updated Treatment ResponseAssessment (TRA) v2024. *OPTN and LI-RADS criteria for definite HCC are identical except for:10-19 mm observations with nonrim APHE + nonperipheral washout butwithout enhancing capsule or threshold growth. Implication: Some LR-5observations do not count as OPTN 5. Drafted by Quentin Oliva MD on 04/03/2025 8:53 AM Final report signed by Quentin Oliva MD on 04/03/2025 9:01 AM Serjio Jacobo MD IMG CT PROCEDURES Final Result documented in this encounter Visit Diagnoses Diagnosis End-stage liver disease (CMS/HCC) Other sequelae of chronic liver disease Alcoholic cirrhosis, unspecified whether ascites present (CMS/HCC) Hepatic lesion documented in this encounter Administered Medications Inactive Administered Medications - up to 3 most recent administrations Medication Order MAR Action Action Date Dose Rate Site iohexol (OMNIPaque) 350 MG/ML injection 150 mL 150 mL, Intravenous, Once in imaging, 1 dose, Starting on Eunice 04/03/25 at 0718, Until Eunice 04/03/25 at 0810, Routine, Imaging Protocol Orders Given 04/03/2025 8:10 AM EDT 150 mL iohexol (OMNIPaque) 9 MG/ML oral contrast 500 mL 500 mL, Oral, Once in imaging, 1 dose, Starting on Eunice 04/03/25 at 0718, Until Eunice 04/03/25 at 0727, Routine, Imaging Protocol Orders Given 04/03/2025 7:27 AM EDT 500 mL documented in this encounter Additional Health Concerns Assessment Noted Time A fall risk assessment has been complete d for the patient 03/28/2025 6:50 AM EDT A Body Mass Index follow-up plan has been documented for the patient 03/28/2025 9:31 AM EDT documented as of this encounter Care Teams Foam Dispenser Relationship Specialty Start Date End Date Murray Prajapati MD [address] [facility] [address] [place] [address] PCP - General 03/06/23 Jaja Camara APRN [address] [place] [facility] [address] [place] [address] Referring Physician Gastroenterology 03/06/23 documented as of this encounter
--- OUTSIDE RECORDS SUMMARY | 2025-04-29 12:45 | XMS_ITS | Encounter Summary ---
Author Organization Healthcare Address [address] [place] [address] Care Team Providers Care Adoption Agent Name Role Phone Murray Prajapati MD Primary Care Provider [phone] Jaja Camara CREDIT RATING INSPECTOR Unavailable [phone] Dyllan Paul MD Unavailable [phone] Reason for Visit * Reason Comments neoplasm of prostate Second opinion Encounter Details Date Type Department Care Team (Late st Contact Info) Description 04/29/2025 12:45 PM EDT Consult [facility] [address] [place] [address] Dyllan Paul MD [address] [place] [address] Prostate cancer (CMS/HCC) (Primary Dx) Social History Tobacco Use Types Packs/Day Years Used Date Smoking Tobacco: Never Passive Smoke Exposure: Never Smokeless Tobacco: Never Tobacco Cessation:Counseling Given: Not Answered Alcohol Use Standard Drinks/Week Comments Not Currently 0 (1 standard drink = 0.6 oz pur e alcohol) PHQ-2 Answer Date Recorded Patient Health Questionnaire-2 Score 0 04/29/2025 PHQ-9 Answer Date Recorded Patient Health Questionnaire-9 Score 0 04/29/2025 PHQ-2A Answer Date Recorded Patient Health Questionnaire-2 Score 0 05/04/2023 Sex and Gender Information Value Date Recorded Sex Assigned at Not on file Legal Sex Male 8:25 PM EDT Gender Identity Not on file Sexual Orientation Not on file documented as of this encounter Last Filed Vital Signs Vital Sign Reading Time Taken Comments Blood Pressure 122/75 04/29/2025 12:45 PM EDT Pulse 66 04/29/2025 12:45 PM EDT Temperature 36.7 C (98.1 F) 04/29/2025 12:45 PM EDT Respiratory Rate 18 04/29/2025 12:45 PM EDT Oxygen Saturation 93% 04/29/2025 12:45 PM EDT Inhaled Oxygen Concentration - - Weight 116 kg (256 lb 2.8 oz) 04/29/2025 12:45 P M EDT Height 175.3 cm (5' 9 ) 04/29/2025 12:45 PM EDT Body Mass Index 37.83 04/29/2025 12:45 PM EDT documented in this encounter Functional Status * Over the past 2 weeks, how often have you been bothered by any of the following problems? Question Answer Date of Assessment Author Little interest or pleasure in doing things Not at all 04/29/2025 12:43 PM EDT Matt Sen Feeling down, depressed, or hopeless Not at all 04/29/2025 12:43 PM EDT Matt Sen Patient Health Questionnaire -2 Score 0 04/29/2025 12:43 PM EDT Matt Sen * Question Answer Date of Assessment Author Trouble falling or staying asleep, or sleeping too much Not at all 04/29/2025 12:43 PM EDT Gabriel Lawson Feeling tired or having indra le energy Not at all 04/29/2025 12:43 PM EDT Matt Sen Poor appetite or overeating Not at all 04/29/2025 12 :43 PM EDT Gabriel Sen Feeling bad about yourself - or that you are a failure or have let yourself or your family down Not at all 04/29/2025 12:43 PM EDT Gabriel Dao Trouble concentrating on thi ngs, such as reading the newspaper or watching television Not at all 04/29/2025 12:43 PM EDT Matt Sen Moving or speaking so slowly that other people could have noticed? Or the opposite - being so fidgety or restless that you have been moving around a lot more than usual. Not at all 04/29/2025 12:43 PM EDT Matt Sen Thoughts that you would be better off or hurting yourself in some way Not at all 04/29/2025 12:[address] Patient Health Questionnaire -9 Score 0 04/29/2025 12:43 PM EDT Matt Sen documented as of this encounter Miscellaneous Notes * Progress Notes - Ramiro Hartman, - 04/29/2025 12:45 PM EDT Images from the original note were not included. [facility] Urology Clinic Note 04/29/25 Assessment: Eber Lowe is a 70 y.o. 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 Decipher high-risk. PSMA PET scan showing no evidence of metastatic disease. I discussed with the patient the options for managing his prostate cancer. I discussed that his biopsy findings and PSA place him in the unfavorable intermediate risk category. I discussed in generalthe options for [id number] management would include radical prostatectomy and radiation therapy to the prostate with a short course of ADT. I discussed the risks and benefits of these approaches. I discussed radical prostatectomy at length, including the risks of pain, bleeding, damage to nearby structures, anesthetic risks, and risk of incomplete treatment or cancer recurrence. I discussedthe operative technique and expected postoperative course. I discussed the expected complications of prostatectomy including worsening erectile dysfunction and urinary incontinence. I discussed in contrast the risks and benefits of radiation including less upfront risk during treatment, but the longer-term risks of irritative bowel and bladder symptoms, hematuria or hematochezia, secondary cancers, and risk of recurrence or persistence of disease. I discussed the risks of androgen deprivation therapy including weakness, fatigue, worsening libido, and slow recovery of testosterone after treatment. I discussed that neither radiation nor surgery has better oncologic outcomes, and the decision s hould primarily be guided by his tolerance of the competing risks and benefits. After discussion, the patient says he would like to proceed with RALP. Patient will let us know if he wants to have this done at . Plan: - patient will call if he wants to schedule surgery. Сергей Hartman, DO PGY-3, Department of Urology Pager: [phone] ? CC: Prostate cancer HPI: Eber Lowe is a 70 y.o. M with who presents for a 2nd opinion of his unfavorable intermediate risk prostate cancer. Patient was diagnosed on biopsy on 01/22/2025 with grade group 3 disease in the left mid, left apex, and left peripheral zone with PNI and cribriform pattern 4. PSA is 4.7. His decipher test was high-risk. He underwent a PSMA PET scan, which did not demonstrate any evidence of metastatic disease, though did demonstrate a PET avid lesion in the left side of the prostate. Dr. Pereyra discussed leonora gement options with him and he elected to proceed with RALP. He presents today for 2nd opinion prior to undergoing treatment. He initially presented with kidney stones last year and was noted to have a large prostate. This prompted PSA surveillance, and eventually a biopsy on 01/22/25 with findings as above. He reports mild LUTS with post-void dribbling. He has good erectile function with no meds. [place] is very [place] 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 Drinks socially, prior heavy ETOH use. Daughter is radiation oncologist at [place] Symptoms: Dribbling but otherwise minimal LUTS. No ED. ECO I personally reviewed outside institution and internal imaging studies, imaging reports, labs, cultures, and provider notes as noted below and in the assessment and plan. PMHx: Past Medical History[1] PSHx: Surgical History[2] FHx: Family History[3] SHx: Social History Socioeconomic History Marital status: Spouse name: Not on file Number of children: Not on file Years of education: Not on file Highest education level: Not on file Occupational History Not on file Tobacco Use Smoking status: Never Passive exposure: Never Smokeless tobacco: Never Vaping Use Vaping status: Never Used Substance and Sexual Activity Alcohol use: Not Currently Drug use: Never Sexual activity: Yes Partners: Female control/protection: Post-menopausal Other Topics Concern Not on file Social History Narrative Not on file Social Drivers of Health Financial Resource Strain: Not on file Food Insecurity: No Food Insecurity (12/08/2023) Received from [email or web address] Food Insecurity Food run out past 12 months: Not on file Food did not last past 12 months: Not on file Transportation Needs: Not on file Physical Activity: Not on file Stress: Not on file Social Connections: Low Risk (12/08/2023) Received from [facility] Family and Community Support Help with Day to Day Activities: Not on file Feeling Lonely or Isolated: Not on file Intimate Partner Violence: Unknown (08/28/2023) Received from [facility] Abuse Screen Unsafe at Home or Work/School: Not on file Feels Threatened by Someone?: Not on file Does Anyone Keep You from Contacting Others or Doint Things Outside the Home?: Not on file Physical Sign of Abuse Present: Not on file Housing Stability: Low Risk (12/08/2023) Received from [facility] Housing Stability Living situation today: Not on file Living situation problems: Not on file Physical Exam: Vitals: 04/29/25 1245 BP: 122/75 Pulse: 66 Resp: 18 Temp: 36.7 ??C (98.1 ??F) SpO2: 93% GEN: NAD HEENT: NCAT, EOMI RESP: Equal bilateral chest rise, normal work of breathing CV: Appears well perfused ABD: Soft, nontender, nondistended. Laparoscopic and umbilical incisions well-healed. EXT: No gross deformities MSK: Normal ROM NEURO: No focal deficits, AOx3 PSYCH: Appropriate mood and affect Labs: UA: No results found for: SPECGRAV , PH , GLUCOSEUA , BILIRUBINUR , KETONESU , POCPROTUR , UROBILINPOC , RBCUR , NITRITE , WBCUR Prostate biopsy - 01/22/25 Decipher - 01/22/25 Imaging: PSMA PET - 02/13/25 mpMRI - 07/31/24 [1] Past Medical History: Diagnosis Date Cancer (CMS/HCC) january 26, 2025 Cirrhosis (CMS/HCC) 2021 History of methicillin resistant Staphylococcus aureus 2011 Hypertension Kidney stone various Substance abuse alcohol [2] Past Surgical History: Procedure Laterality Date CHOLECYSTECTOMY 2009 lap KNEE ARTHROSCOPY W/ MENISCAL REPAIR UMBILICAL HERNIA REPAIR [3] Family History Problem Relation Name Age of Onset Heart disease Mother Cosigned by Dyllan Paul MD at 04/30/2025 3:17 PM EDT Associated attestation - Dyllan Paul MD - 04/30/2025 3:17 PM EDT I saw and evaluated the patient with the resident/fellow. I discussed the case with the resident/fellow and agree with the findings and plan as documented. documented in this encounter Plan of Treatment Upcoming Encounters Date Type Department Care Team (Late st Contact Info) Description 05/30/2025 8:45 AM EDT Clinical Support [facility] [place] [address] [facility] [address] [place] [address] 05/30/2025 10:20 AM EDT Office Visit [facility] [place] [address] [facility] [address] [place] [address] Serjio Jacobo MD [address] [facility] [address] [place] [address] 06/12/2025 Hospital Encounter [facility] [address] [place] [address] Dyllan Paul MD [address] [facility] [address] [place] [address] 06/24/2025 2:45 PM EDT Office Visit [facility] Urology [address] [place] [address] Dyllan Paul MD [address] [facility] [address] [place] [address] Scheduled Procedures Name Priority Associated Diagnoses Date/Ti me PROSTATECTOMY, RADICAL, ROBOT-ASSISTED Prostate CA (CMS/HCC) documented as of this encounter Visit Diagnoses Diagnosis Prostate cancer (CMS/HCC)- Primary Malignant neoplasm of prostate documented in this encounter Additional Health Concerns 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 Assessment Noted Time PHQ-9 Depression Total Score: 0 04/29/20 25 12:43 PM EDT A fall risk assessment has been complete d for the patient 04/29/2025 12:44 PM EDT A Body Mass Index follow-up plan has been documented for the patient 04/30/2025 3:18 PM EDT documented as of this encounter Care Teams Adoption Agent Relationship Specialty Start Date End Date Murray Prajapati MD [facility] [address] [place] [address] PCP - General 03/06/23 Jaja Camara APRN [address] [place] [address] [address] [address] Referring Physician Gastroenterology 03/06/23 Dyllan Paul MD [address] [address] Surgeon Urology 04/29/25 documented as of this encounter
[2025-05-15 18:05] LABS: Alanine Aminotransferase 39 U/L (12-78); Albumin Level 3.2 g/dl (3.5-5.0); Albumin/Globulin Ratio 1.4 (1.1-1.8); Alkaline Phosphatase 176 U/L (38-126); Anion Gap 7.7 mEq/L (5-15); Aspartate Amino Transferase 79 U/L (17-59); Bilirubin,Total 4.1 mg/dl (0.2-1.3); Blood Urea Nitrogen 10 mg/dl (9-20); Carbon Dioxide 28 mmol/L (22.0-30.0); Chloride 104 mmol/L (98-107); Estimated Glomerular Filt Rate 111 ml/min (>60); GFR (African American) 135 ML/MIN (>60); Globulin 2.3 g/dL (1.3-3.2); Glucose 82 mg/dl (74-100); Potassium 3.7 mmoL/L (3.5-5.1); Sodium 136 mmol/L (136-145); Total Protein,Serum 5.5 g/dl (6.3-8.2)
--- OUTSIDE RECORDS SUMMARY | 2025-05-16 10:12 | XMS_ITS | Encounter Summary ---
Author Organization [facility] Address [address] [place] [address] Care Team Providers Care Wire Basket Maker Name Role Phone Murray Prajapati MD Primary Care Provider [phone] Jaja Camara BASIC ACOUSTIC ANALYST Unavailable [phone] Dyllan Paul MD Unavailable [phone] Encounter Details Date Type Department Care Team (Late Contact Info) Description 08/02/2024 Orders Only External Location [address] [place] [address] Provider, External Social History Tobacco Use Types Packs/Day Years Used Date Smoking Tobacco: Never Smokeless Tobacco: Never PHQ-2 Answer Date Recorded Patient Health Questionnaire-2 Score 0 05/04/2023 PHQ-2A Answer Date Recorded Patient Health Questionnaire-2 Score 0 05/04/2023 Sex and Gender Information Value Date Recorded Sex Assigned at Not on file Legal Sex Male 8:25 PM EDT Gender Identity Not on file Sexual Orientation Not on file documented as of this encounter Plan of Treatment Upcoming Encounters Date Type Department Care Team (Late Contact Info) Description 05/30/2025 8:45 AM EDT Clinical Support [facility] [address] [place] [address] 05/30/2025 10:20 AM EDT Office Visit [facility] [place] [address] [place] [address] Serjio Jacobo MD [address] [facility] [address] [place] [address] 06/12/2025 Hospital Encounter [facility]PERATING ROOM [address] [place] [address] Dyllan Paul MD [address] [facility] [place] [address] 06/24/2025 2:45 PM EDT Office Visit [facility] [address] [place] [address] Dyllan Paul MD [id number] [place] [address] Scheduled Procedures Name Priority Associated Diagnoses Date/Ti me PROSTATECTOMY, RADICAL, ROBOT-ASSISTED Prostate CA ([facility]) documented as of this encounter Procedures Procedure Name Priority Date/Time Associated Diagnosis Comments US OUTSIDE IMAGES 08/02/2024 11:00 AM EDT documented in this encounter Results * US OUTSIDE IMAGES (08/02/2024 11:00 AM EDT) Anatomical Region Laterality Modality Ultrasound 08/02/2024 11:0 0 AM EDT us External Provider IMG US PROCEDURES Final Result documented in this encounter Visit Diagnoses Not on filedocumented in this encounter Additional Health Concerns 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 Assessment Noted Time A fall risk assessment has been complete d for the patient 05/04/2023 8:15 AM EDT A Body Mass Index follow-up plan has been documented for the patient 05/04/2023 9:50 AM EDT documented as of this encounter Care Teams Wire Basket Maker Relationship Specialty Start Date End Date Murray Prajapati MD [address] [place], [place] [id number] PCP - General 03/06/23 Jaja Camara APRN [address] [facility] [address] [address] Referring Physician Gastroenterology 03/06/23 Dyllan Paul MD [address] [place] [address] Surgeon Urology 04/29/25 documented as of this encounter
--- OUTSIDE RECORDS SUMMARY | 2025-05-16 10:12 | XMS_ITS | Encounter Summary ---
Author Organization [facility] Address [address] [id number] Care Team Providers Care Supervisor Carbon Electrodes Name Role Phone Murray Prajapati MD Primary Care Provider [phone] Jaja Camara METAL TRADES INSTRUCTOR Unavailable [phone] Encounter Details Date Type Department Care Team (Late Contact Info) Description 03/20/2025 Telephone [facility] Urology [address] [place] [address] [place] [address] Social History Tobacco Use Types Packs/Day Years [...] on file documented as of this encounter Miscellaneous Notes * Telephone Encounter - Keri Waters - 03/20/2025 3:50 PM EDT Fax sent to [facility] Medical records, , for prostate biopsy report to be faxed to our office. Keri Waters RN documented in this encounter Plan of Treatment Upcoming Encounters Date Type Department Care Team (Late Contact Info) Description 05/30/2025 8:45 AM EDT Clinical Support [facility] [address] [place] [address] 05/30/2025 10:20 AM EDT Office Visit [facility] [address] [place] [address] Serjio Jacobo MD [address] [facility] [address] [place] [address] 06/12/2025 Hospital Encounter [facility] ROOM [address] [place] [address] Dyllan Paul MD [address] [place] [address] 06/24/2025 2:45 PM EDT Office Visit [facility] [address] [place] [address] Dyllan Paul MD [address] [place] [address] Scheduled Procedures Name Priority Associated Diagnoses Date/Ti me PROSTATECTOMY, RADICAL, ROBOT-ASSISTED Prostate CA ([facility]) documented as of this encounter Visit Diagnoses Not on filedocumented in this encounter Additional Health Concerns Assessment Noted Time A fall risk assessment has been complete d for the patient 05/04/2023 8:15 AM EDT A Body Mass Index follow-up plan has been documented for the patient 05/04/2023 9:50 AM EDT documented as of this encounter Care Teams Supervisor Carbon Electrodes Relationship Specialty Start Date End Date Murray Prajapati MD [address] [place], [place] [address] PCP - General 03/06/23 Jaja Camara APRN [address] [facility] [address] [place], [place] [address] Referring Physician Gastroenterology 03/06/23 documented as of this encounter
--- OUTSIDE RECORDS SUMMARY | 2025-05-16 10:12 | XMS_ITS | Encounter Summary ---
Author Organization [facility] Address [address] [place] [address] Care Team Providers Care Pasteurizing Supervisor Name Role Phone Murray Prajapati MD Primary Care Provider [phone] Jaja Camara CRIMINAL INTELLIGENCE SPECIALIST Unavailable [phone] Dyllan Paul MD Unavailable [phone] Encounter Details Date Type Department Care Team (Late Contact Info) Description 06/28/2024 Orders Only External Location [address] [place] [address] Provider, External Social History Tobacco Use Types [...] Description 05/30/2025 8:45 AM EDT Clinical Support [facility] [address] [place] [address] 05/30/2025 10:20 AM EDT Office Visit [facility] [place] [address] [place] [address] Serjio Jacobo MD [address] [facility] [address] [place] [address] 06/12/2025 Hospital Encounter [facility]PER[facility] ROOM [address] [place] [address] Dyllan Paul MD [address] [facility] [place] [address] 06/24/2025 2:45 PM EDT Office Visit [facility] [address] [place] [address] Dyllan Paul MD [id number] [place] [address] Scheduled Procedures Name Priority Associated Diagnoses Date/Ti me PROSTATECTOMY, RADICAL, ROBOT-ASSISTED Prostate CA ([facility]/HCC) documented as of this encounter Procedures Procedure Name Priority Date/Time Associated Diagnosis Comments XR ABDOMEN OUTSIDE IMAGES 06/28/2024 9:54 AM EDT documented in this encounter Results * XR ABDOMEN OUTSIDE IMAGES (06/28/2024 9:54 AM EDT) Anatomical Region Laterality Modality Radiographic Julia ging 06/28/2024 9:54 AM EDT External Provider IMG XR PROCEDURES Final Result documented in this encounter [...] documented as of this encounter Care Teams Pasteurizing Supervisor Relationship Specialty Start Date End Date Murray Prajapati MD [address] [facility] [address] [place] [address] PCP - General 03/06/23 Jaja Camara, TORREY [address] [facility] [address] [address] Referring Physician Gastroenterology 03/06/23 Dyllan Paul MD [address] [facility] [address] [place] [address] Surgeon Urology 04/29/25 documented as of this encounter
--- OUTSIDE RECORDS SUMMARY | 2025-05-16 10:12 | XMS_ITS | Encounter Summary ---
Author Organization [facility] Address [address] [place] [address] Care Team Providers Care Director Sterile Processing Name Role Phone Murray Prajapati MD Primary Care Provider [phone] Jaja Camara ROBOT PROGRAMMER Unavailable [phone] Dyllan Paul MD Unavailable [phone] Encounter Details Date Type Department Care Team (Late st Contact Info) Description 03/26/2025 Lab Requisition [facility] [address] [place] [address] Dyllan Paul MD [address] [facility] [address] [place] [address] Elevated prostate specific antigen (PSA) Social History Tobacco Use Types Packs/Day Years [...] on file documented as of this encounter Functional Status * Over the [...] Wm Harding documented as of this encounter Plan of Treatment Upcoming Encounters Date Type Department Care Team (Late st Contact Info) Description 05/30/2025 8:45 AM EDT Clinical Support [facility] [place] [address] [place] [address] 05/30/2025 10:20 AM EDT Office Visit [facility] [place] [address] [place] [address] Serjio Jacobo MD [address] [facility] [address] [place] [address] 06/12/2025 Hospital Encounter [facility] A OPERATING ROOM [address] [place] [address] Dyllan Paul MD [address] [facility] [address] [place] [address] 06/24/2025 2:45 PM EDT Office Visit [facility] [address], 2[address] [place] [address] Dyllan Paul MD [address] [facility] [address] [place] [address] Scheduled Procedures Name Priority Associated Diagnoses Date/Ti me PROSTATECTOMY, RADICAL, ROBOT-ASSISTED Prostate CA ([facility]) documented as of this encounter Procedures Procedure Name Priority Date/Time Associated Diagnosis Comments SURGICAL PATHOLOGY CONSULT Routine 03/26/2025 1:30 PM EDT Elevated prostate specific antigen (PSA) documented in this encounter Results * Surgical Pathology Consult (03/26/2025 1:30 PM EDT) Case Report Sugical Pathology Consult Case: [id number] Authorizing Provider: Dyllan Paul MD Collected: 03/26/2025 1330 Ordering Location: [facility] Lab Received: 03/26/2025 1330 Pathologist: Vandana Levine MD Specimen: Prostate, [id number] 03/27/2025 10:44 AM EDT [facility] Final Diagnosis PROSTATE, NEEDLE CORE BIOPSIES (REVIEW OF OUTSIDE SLIDES LABELED [id number], PROCEDURE DATE 01/22/2025): A. LEFT BASE: - BENIGN PROSTATE TISSUE. B. LEFT MID: - PROSTATIC ADENOCARCINOMA, CARLEY SCORE 4 + 3 = 7 (GRADE GROUP 3), INVOLVING 90%, 90%, AND 70% OF 3 (3) CORES (60% CARLEY PATTERN 4). C. LEFT APEX: - PROSTATIC ADENOCARCINOMA, CARLEY SCORE 4 + 3 = 7 (GRADE GROUP 3), INVOLVING 90% AND 80% OF 2 (2) CORES (70% CARLEY PATTERN 4). D. RIGHT BASE: - ATYPICAL SMALL ACINAR PROLIFERATION. E. RIGHT MID: - ATYPICAL SMALL ACINAR PROLIFERATION. F. RIGHT APEX: - BENIGN PROSTATE TISSUE. G. LEFT PERIPHERAL ZONE LESION: - PROSTATIC ADENOCARCINOMA, CARLEY SCORE 4 + 3 = 7 (GRADE GROUP 3), INVOLVING 90%, 90%, 90%, AND 70% OF 4 (4) CORES (70% CARLEY PATTERN 4). 03/27/2025 10:44 AM EDT [facility] at 1044 EDT Comment Perineural invasion is identified. Cribriform pattern 4 is also seen. 03/27/2025 10:44 AM EDT [facility] Clinical Information R97.20 - Elevated prostate specific antigen (PSA) [ICD-10-CM] 03/27/2025 10:44 AM EDT [facility] Gross Description A. [id number] Received along with a corresponding pathology report from [facility] are 9 slides labeled outside case: [id number] collected on 01/22/2025. 03/27/2025 10:44 AM EDT [facility] Tissue Prostate / Unknown 1:30 PM EDT 03/26/2025 1:30 PM EDT Dyllan Paul MD LAB PATHOLOGY ORDERABLES Francia lezama Result [facility] [address] [place] [address] documented in this encounter Visit Diagnoses Diagnosis Elevated prostate specific antigen (PSA) documented in this encounter Additional Health Concerns 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 Assessment Noted Time A fall risk assessment has been complete d for the patient 05/04/2023 8:15 AM EDT A Body Mass Index follow-up plan has been documented for the patient 05/04/2023 9:50 AM EDT documented as of this encounter Care Teams Director Sterile Processing Relationship Specialty Start Date End Date Murray Prajapati MD [address] [facility] [address] [place] [address] PCP - General 03/06/23 Jaja Camara APRN 1210 [facility] [address] [place] [address] Referring Physician Gastroenterology 03/06/23 Dyllan Paul MD [address] [facility] [address] [place] [address] Surgeon Urology 04/29/25 documented as of this encounter
--- OUTSIDE RECORDS SUMMARY | 2025-05-16 10:12 | XMS_ITS | Encounter Summary ---
Author Organization [facility] Address [address] [place] [address] Care Team Providers Care Shorthand Reporter Name Role Phone Murray Prajapati MD Primary Care Provider [phone] Jaja Camara ABALONE SHELLER Unavailable [phone] Reason for Referral * Transplant (Routine) - Authorized Specialty Diagnoses / Procedures Referred By Silverio heredia Referred To Contact Transplant Diagnoses End-stage liver disease (CMS/HCC) Jony Eckert MD [facility] [address] [address] Phone: tel: fax: Referral ID Status Reason Start Date Expiration Date Visits Requested Visits Authorized [id number] Authorized Specialty Services Required 03/27/2025 09/26/2026 999 999 Reason for Visit * Reason Comments Appointment Appointment request Encounter Details Date Type Department Care Team (Late st Contact Info) Description 03/27/2025 Telephone [facility] [address] [address] [place] [address] Appointment (Appointment request) Social History Tobacco Use Types Packs/Day Years [...] encounter Miscellaneous Notes * Telephone Encounter - Linnea Martinez - 03/27/2025 9:18 AM EDT Received a voicemail from Mr Lowe requesting to be seen by Transplant. Spoke to Mr Lowe - concernfor decompensation in the midst of other pressing health concerns. Updated his chart and explained that since there has been a gap of time we will need to begin again with insurance clearance. Scheduling pending. documented in this encounter Plan of Treatment Upcoming Encounters Date Type Department Care Team (Late st Contact Info) Description 05/30/2025 8:45 AM EDT Clinical Support [facility] [address] [facility] [address] [place] [address] 05/30/2025 10:20 AM EDT Office Visit [facility] [address] [facility] [address] [place] [address] Serjio Jacobo MD [address] [facility] [address] [place] [address] 06/12/2025 Hospital Encounter [facility] A OPERATING ROOM [address] [place] [address] Dyllan Paul MD [address] [facility] [address] [place] [address] 06/24/2025 2:45 PM EDT Office Visit [facility] [address], [address]nd [place] [address] Dyllan Paul MD [address] [place] [address] Scheduled Procedures Name Priority Associated Diagnoses Date/Ti me PROSTATECTOMY, RADICAL, ROBOT-ASSISTED Prostate CA (CMS/HCC) Scheduled Referrals Name Type Priority Associated Diagnoses Order Schedule Ambulatory referral to Solid Organ Transplant Team Outpatient Referral Routine End-stage liver disease (CMS/HCC) Ordered: 03/27/2025 documented as of this encounter Visit Diagnoses Diagnosis End-stage liver disease (CMS/HCC)- Primary Other sequelae of chronic liver disease documented in this encounter Additional Health Concerns Assessment Noted Time A fall risk assessment has been complete d for the patient 05/04/2023 8:15 AM EDT A Body Mass Index follow-up plan has been documented for the patient 05/04/2023 9:50 AM EDT documented as of this encounter Care Teams Shorthand Reporter Relationship Specialty Start Date End Date Murray Prajapati MD [address]10 [facility] [address] [place] [address] PCP - General 03/06/23 Jaja Camara APRN 1210 [facility] [address] [place] [address] Referring Physician Gastroenterology 03/06/23 documented as of this encounter
--- OUTSIDE RECORDS SUMMARY | 2025-05-16 10:12 | XMS_ITS | Encounter Summary ---
Author Organization [facility] Address [address] [place] [address] Care Team Providers Care Brazer Controlled Atmospheric Furnace Name Role Phone Murray Prajapati MD Primary Care Provider [phone] Jaja Camara HOSPITAL MORTICIAN Unavailable [phone] Dyllan Paul MD Unavailable [phone] Encounter Details Date Type Department Care Team (Late Contact Info) Description 08/02/2024 Orders Only External Location [address] [place] [address] Provider, External Social History Tobacco Use Types [...] Description 05/30/2025 8:45 AM EDT Clinical Support [facility] [address] [place] [address] 05/30/2025 10:20 AM EDT Office Visit [facility] [place] [address] [place] [address] Serjio Jacobo MD [address] [facility] [address] [place] [address] 06/12/2025 Hospital Encounter [facility] A OPERATING ROOM [address] [place] [address] Dyllan Paul MD [address] [facility] [place] [address] 06/24/2025 2:45 PM EDT Office Visit [facility] [address] [place] [address] Dyllan Paul MD [id number] [place] [address] Scheduled Procedures Name Priority Associated Diagnoses Date/Ti me PROSTATECTOMY, RADICAL, ROBOT-ASSISTED Prostate CA ([facility]) documented as of this encounter Procedures Procedure Name Priority Date/Time Associated Diagnosis Comments US OUTSIDE IMAGES 08/02/2024 10:41 AM EDT documented in this encounter Results * US OUTSIDE IMAGES (08/02/2024 10:41 AM EDT) Anatomical Region Laterality Modality Ultrasound 08/02/2024 10:4 1 AM EDT us External Provider IMG US [...] documented as of this encounter Care Teams Brazer Controlled Atmospheric Furnace Relationship Specialty Start Date End Date Murray Prajapati MD [address] [place], [place] [address] PCP - General 03/06/23 Jaja Camara APRN 1210 [facility] [address] [place] [address] Referring Physician Gastroenterology 03/06/23 Dyllan Paul MD [address] [place] [address] Surgeon Urology 04/29/25 documented as of this encounter
--- OUTSIDE RECORDS SUMMARY | 2025-05-16 10:12 | XMS_ITS | Encounter Summary ---
Author Organization [facility] Address [address] [place] [address] Care Team Providers Care Automatic Corn Grinder Operator Name Role Phone Murray Prajapati MD Primary Care Provider [phone] Jaja Camara PILE OPERATOR Unavailable [phone] Dyllan Paul MD Unavailable [phone] Encounter Details Date Type Department Care Team (Late Contact Info) Description 07/31/2024 Orders Only External Location [address] [place] [address] Provider, External Social History Tobacco Use Types [...] Description 05/30/2025 8:45 AM EDT Clinical Support [facility] [address] [place] [address] 05/30/2025 10:20 AM EDT Office Visit [facility] [place] [address] [place] [address] Serjio Jacobo MD [address] [facility] [address] [place] [address] 06/12/2025 Hospital Encounter [facility]AV A OPERATING ROOM [address] [place] [address] Dyllan Paul MD [address] [facility] [place] [address] 06/24/2025 2:45 PM EDT [facility] [address] [place] [address] Dyllan Paul MD [id number] [place] [address] Scheduled Procedures Name Priority Associated Diagnoses Date/Ti me PROSTATECTOMY, RADICAL, ROBOT-ASSISTED Prostate CA ([facility]/HCC) documented as of this encounter Procedures Procedure Name Priority Date/Time Associated Diagnosis Comments MR MSK OUTSIDE IMAGES 07/31/2024 8:00 AM EDT documented in this encounter Results * MR MSK OUTSIDE IMAGES (07/31/2024 8:00 AM EDT) Anatomical Region Laterality Modality Magnetic Resonan ce 07/31/2024 8:00 AM EDT us External Provider IMG MRI PROCEDURES Final Resul t documented in this encounter Visit Diagnoses Not [...] documented as of this encounter Care Teams Automatic Corn Grinder Operator Relationship Specialty Start Date End Date Murray Prajapati MD [address] [facility] [address] [place] [address] PCP - General 03/06/23 Jaja Camara APRN 1210 [facility] [address] [place] [address] Referring Physician Gastroenterology 03/06/23 Dyllan Paul MD [address] [place] [address] Surgeon Urology 04/29/25 documented as of this encounter
--- OUTSIDE RECORDS SUMMARY | 2025-05-16 10:12 | XMS_ITS | Encounter Summary ---
Author Organization [facility] Address [address] [place] [address] Care Team Providers Care It Technical Support Specialist Name Role Phone Murray Prajapati MD Primary Care Provider [phone] Jaja Camara INSURANCE DEFENSE ATTORNEY Unavailable [phone] Encounter Details Date Type Department Care Team (Latest Contact Info) Description 03/28/2025 Travel Social History Tobacco Use Types Packs/Day Years [...] Upcoming Encounters Date Type Department Care Team ( Contact Info) Description 05/30/2025 8:45 AM EDT Clinical Support [facility] [address] [place] [address] 05/30/2025 10:20 AM EDT Office Visit [facility] [address] [place] [address] Serjio Jacobo MD [address] [place] [address] 06/12/2025 Hospital Encounter PAV A OPERATING ROOM [address] [place] [address] Dyllan Paul MD [address] [facility] [address] [place] [address] 06/24/2025 2:45 PM EDT Office Visit [facility] [address] [place] [address] Dyllan Paul MD [address] [facility] [address] [place] [address] Scheduled Procedures Name Priority Associated [...] documented as of this encounter Care Teams It Technical Support Specialist Relationship Specialty Start Date End Date Murray Prajapati MD [address]10 [facility] [address] [place] [address] PCP - General 03/06/23 Jaja Camara APRN 1210 [facility] [address] [place] [address] Referring Physician Gastroenterology 03/06/23 documented as of this encounter
--- OUTSIDE RECORDS SUMMARY | 2025-05-16 10:12 | XMS_ITS | Encounter Summary ---
Author Organization [facility] Address [address] [place] [address] Care Team Providers Care Polisher Brass Name Role Phone Murray Prajapati MD Primary Care Provider [phone] Jaja Camara DIRECTOR OF SECURITIES AND REAL ESTATE Unavailable [phone] Dyllan Paul MD Unavailable [phone] Encounter Details Date Type Department Care Team (Late Contact Info) Description 02/13/2025 Orders Only External Location [address] [place] [address] Provider, External Social History Tobacco Use Types [...] Description 05/30/2025 8:45 AM EDT Clinical Support [facility] [address] [place] [address] 05/30/2025 10:20 AM EDT Office Visit [facility] [place] [address] [place] [address] Serjio Jacobo MD [address] [facility] [address] [place] [address] 06/12/2025 Hospital Encounter PAV A OPERATING ROOM [address] [place] [address] Dyllan Paul MD [address] [facility]00 [place] [address] 06/24/2025 2:45 PM EDT Office Visit [facility] [address], 2[address] [place] [address] Dyllan Paul MD [id number] [place] [address] Scheduled Procedures Name Priority Associated Diagnoses Date/Ti me PROSTATECTOMY, RADICAL, ROBOT-ASSISTED Prostate CA ([facility]) documented as of this encounter Procedures Procedure Name Priority Date/Time Associated Diagnosis Comments PET OUTSIDE IMAGES 02/13/2025 12:00 PM EDT documented in this encounter Results * PET OUTSIDE IMAGES (02/13/2025 12:00 PM EDT) Anatomical Region Laterality Modality Nuclear Medicine 02/13/2025 12:0 0 PM EDT External Provider IMG NM PROCEDURES Final Result documented in this encounter [...] documented as of this encounter Care Teams Polisher Brass Relationship Specialty Start Date End Date Murray Prajapati MD [address] [place], [place] [address] PCP - General 03/06/23 Jaja Camara APRN 1210 [facility] [address] [place] [address] Referring Physician Gastroenterology 03/06/23 Dyllan Paul MD [address] [place] [address] Surgeon Urology 04/29/25 documented as of this encounter
--- OUTSIDE RECORDS SUMMARY | 2025-05-16 10:12 | XMS_ITS | Encounter Summary ---
Author Organization [facility] Address [address] [place] [address] Care Team Providers Care Shoemaking Finisher Name Role Phone Murray Prajapati MD Primary Care Provider [phone] Jaja Camara SUPPLY CHAIN ASSISTANT Unavailable [phone] Dyllan Paul MD Unavailable [phone] Encounter Details Date Type Department Care Team (Late Contact Info) Description 01/05/2023 Orders Only External Location [address] [place] [address] Provider, External Social History Tobacco Use Types Packs/Day Years Used Date Smoking Tobacco: Never Assessed Sex and Gender Information Value Date Recorded Sex Assigned at Not on file Legal Sex Male 8:25 PM EDT Gender Identity Not on file Sexual Orientation Not on file documented as of this encounter Plan of Treatment Upcoming Encounters Date Type Department Care Team (Late st Contact Info) Description 05/30/2025 8:45 AM EDT Clinical Support [facility] [address] [facility] [address] [place] [address] 05/30/2025 10:20 AM EDT Office Visit [facility] [place] [address] [place] [address] Serjio Jacobo MD [address] [facility] [address] [place] [address] 06/12/2025 Hospital Encounter PAV A OPERATING ROOM [address] [place] [address] Dyllan Paul MD [address] [facility] [place] [address] 06/24/2025 2:45 PM EDT Office Visit [facility] [address] [place] [address] Dyllan Paul MD [id number] [place] [address] Scheduled Procedures Name Priority Associated Diagnoses Date/Ti me PROSTATECTOMY, RADICAL, ROBOT-ASSISTED Prostate CA (CMS/[facility]) documented as of this encounter Procedures Procedure Name Priority Date/Time Associated Diagnosis Comments CT MSK OUTSIDE IMAGES 01/05/2023 5:07 AM EST documented in this encounter Results * CT MSK OUTSIDE IMAGES (01/05/2023 5:07 AM EST) Anatomical Region Laterality Modality Computed Tomogra phy 01/05/2023 5:07 AM EST us External Provider IMG CT PROCEDURES Final Result documented in this encounter Visit Diagnoses Not on filedocumented in this encounter Additional Health Concerns 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 documented as of this encounter Care Teams Shoemaking Finisher Relationship Specialty Start Date End Date Murray Prajapati MD 1210 [facility] [address] [place] [address] PCP - General 03/06/23 Jaja Camara APRN 1210 [facility] [address] [place] [address] Referring Physician Gastroenterology 03/06/23 Dyllan Paul MD [address] [facility] [place] [address] Surgeon Urology 04/29/25 documented as of this encounter
--- OUTSIDE RECORDS SUMMARY | 2025-05-16 10:12 | XMS_ITS | Encounter Summary ---
Author Organization Address [address] [place] [address] Care Team Providers Care Manager Systems Name Role Phone Murray Prajapati MD Primary Care Provider [phone] LIGHT REPAIRER HELPER Unavailable [phone] Dyllan Paul MD Unavailable [phone] Encounter Details Date Type Department Care Team (Late Contact Info) Description 08/24/2010 Orders Only External Location [address] [place] [address] Provider, External Social History Tobacco Use Types [...] AM EDT Clinical Support [facility] [address] [place] [address] 05/30/2025 10:20 AM EDT Office Visit [facility] [place] [address] [place] [address] Serjio Jacobo MD [address] [place] [address] 06/12/2025 Hospital Encounter PAV A OPERATING ROOM [address] [place] [address] Dyllan Paul MD [address] [place] [address] 06/24/2025 2:45 PM EDT Office Visit [facility] [address] 2[address] [place] [address] Dyllan Paul MD [address] [address] Scheduled Procedures Name Priority Associated Diagnoses Date/Ti me PROSTATECTOMY, RADICAL, ROBOT-ASSISTED Prostate CA (CMS/HCC) documented as of this encounter Procedures Procedure Name Priority Date/Time Associated Diagnosis Comments US OUTSIDE IMAGES 08/24/2010 8:27 AM EDT documented in this encounter Results * US OUTSIDE IMAGES (08/24/2010 8:27 AM EDT) Anatomical Region Laterality Modality Ultrasound 08/24/2010 8:27 AM EDT us External Provider IMG US PROCEDURES Final Result documented in this encounter Visit Diagnoses Not on filedocumented in this encounter Additional Health Concerns 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 documented as of this encounter Care Teams Manager Systems Relationship Specialty Start Date End Date Murray Prajapati MD [address] [place] [address] PCP - General 03/06/23 Jaja Camara APRN 1210 [facility] [address] [place] [address] Referring Physician Gastroenterology 03/06/23 Dyllan Paul MD [address] [address] Surgeon Urology 04/29/25 documented as of this encounter
--- OUTSIDE RECORDS SUMMARY | 2025-05-16 10:12 | XMS_ITS | Encounter Summary ---
Author Organization [facility] Address [address] [place] [address] Care Team Providers Care Audio Production Manager Name Role Phone Murray Prajapati MD Primary Care Provider [phone] Jaja Camara FOAM RUBBER FABRICATOR Unavailable [phone] Dyllan Paul MD Unavailable [phone] Encounter Details Date Type Department Care Team (Late Contact Info) Description 02/13/2025 Orders Only External Location [address] [place] [address] Provider, External Social History Tobacco Use Types [...] [facility] [address] [place] [address] 05/30/2025 10:20 AM EDT Office Visit [facility] [place] [address] [place] [address] Serjio Jacobo MD [address] [facility] [address] [place] [address] 06/12/2025 Hospital Encounter [facility] [address] [place] [address] Dyllan Paul MD [address] [facility] [place] [address] 06/24/2025 2:45 PM EDT Office Visit [facility] [address] [place] [address] Dyllan Paul MD [id number] [place] [address] Scheduled Procedures Name Priority Associated Diagnoses Date/Ti me PROSTATECTOMY, RADICAL, ROBOT-ASSISTED Prostate CA ([facility]) documented as of this encounter Procedures Procedure Name Priority Date/Time Associated Diagnosis Comments PET OUTSIDE IMAGES 02/13/2025 12:41 PM EDT documented in this encounter Results * PET OUTSIDE IMAGES (02/13/2025 12:41 PM EDT) Anatomical Region Laterality Modality Nuclear Medicine 02/13/2025 12:4 1 PM EDT External Provider IMG NM PROCEDURES [...] documented as of this encounter Care Teams Audio Production Manager Relationship Specialty Start Date End Date Murray Prajapati MD [id number] [place], [place] [id number] PCP - General 03/06/23 Jaja Camara APRN [address] [facility] [address] [address] Referring Physician Gastroenterology 03/06/23 Dyllan Paul MD [address] [place] [address] Surgeon Urology 04/29/25 documented as of this encounter
--- OUTSIDE RECORDS SUMMARY | 2025-05-16 10:12 | XMS_ITS | Encounter Summary ---
Author Organization [facility] Address [address] [place] [address] Care Team Providers Care Television Engineering Teacher Name Role Phone Murray Prajapati MD Primary Care Provider [phone] Jaja Camara WAFER MOUNTER Unavailable [phone] Encounter Details Date Type Department Care Team (Latest Contact Info) Description 03/27/2025 Travel Social History Tobacco Use Types Packs/Day [...] Description 05/30/2025 8:45 AM EDT Clinical Support [facility] [address] [place] [address] 05/30/2025 10:20 AM EDT Office Visit [facility] [address] [place] [address] Serjio Jacobo MD [address] [facility] [address] [place] [address] 06/12/2025 Hospital Encounter [facility] [address] [place] [address] Dyllan Paul MD [address] [facility] [address] [place] [address] 06/24/2025 2:45 PM EDT Office Visit [facility] [address] [place] [address] Dyllan Paul MD [address] [facility] [address] [place] [address] Scheduled Procedures Name Priority Associated [...] documented as of this encounter Care Teams Television Engineering Teacher Relationship Specialty Start Date End Date Murray Prajapati MD [address] [facility] [address] [place] [address] PCP - General 03/06/23 Jaja Camara APRN [address] [facility] [address] [address] Referring Physician Gastroenterology 03/06/23 documented as of this encounter
--- OUTSIDE RECORDS SUMMARY | 2025-05-16 10:12 | XMS_ITS | Encounter Summary ---
Author Organization [facility] Address [address] [place] [address] Care Team Providers Care Termite Inspector Name Role Phone Murray Prajapati MD Primary Care Provider [phone] Jaja Camara CHIEF SECURITY AND SAFETY OFFICER Unavailable [phone] Encounter Details Date Type Department Care Team (Late st Contact Info) Description 04/02/2025 Telephone [facility] [address] [facility] [address] [place] [address] Mar Prajapati Social History Tobacco Use Types Packs/Day Years [...] encounter Miscellaneous Notes * Telephone Encounter - Mar Prajapati - 04/02/2025 11:08 AM EDT Spoke to Eber yesterday in regards to scheduling the CT Liver this week, and asked for a phone call back. Eber said he would have to talk to his . Called Lubna this morning to ask about the CT and gave her 2 options-1 for tomorrow at 0800 at [facility] or 1 for 04/04 at [facility]. Lubna is going to talk to him and call me back to let me know. Received a call back from Eber, he said he would take the 0800 at [facility] tomorrow for CT Liver. Ramiro Maldonado in Radiology was asked to schedule, and stated PA needs to be approved before he canschedule. Asked Aranza for PA. Waiting on approval. documented in this encounter Plan of Treatment Upcoming Encounters Date Type Department Care Team (Late st Contact Info) Description 05/30/2025 8:45 AM EDT Clinical Support [facility] [place] [address] [place] [address] 05/30/2025 10:20 AM EDT Office Visit [facility] [place] [address] [place] [address] Serjio Jacobo MD [address] [facility] [address] [place] [address] 06/12/2025 Hospital Encounter [facility] [address] [place] [address] Dyllan Paul MD [address] [facility] [address] [place] [address] 06/24/2025 2:45 PM EDT Office Visit [facility] [address] [place] [address] Dyllan Paul MD [address] [facility] [address] [place] [address] Scheduled Procedures Name Priority Associated Diagnoses Date/Ti [...] documented as of this encounter Care Teams Termite Inspector Relationship Specialty Start Date End Date Murray Prajapati MD [address] [facility] [address] [place] [address] PCP - General 03/06/23 Jaja Camara APRN [address] [facility] [address] [address] Referring Physician Gastroenterology 03/06/23 documented as of this encounter
--- OUTSIDE RECORDS SUMMARY | 2025-05-16 10:12 | XMS_ITS | Encounter Summary ---
Author Organization [facility] Address [address] [place] [address] Care Team Providers Care Vp Treasurer Name Role Phone Murray Prajapati MD Primary Care Provider [phone] Jaja Camara ELECTRIC SHAVER MECHANIC Unavailable [phone] Dyllan Paul MD Unavailable [phone] Encounter Details Date Type Department Care Team (Late Contact Info) Description 05/13/2024 Orders Only External Location [address] [place] [address] Provider, External Social History Tobacco Use Types [...] Description 05/30/2025 8:45 AM EDT Clinical Support [facility] [address] [place] [address] 05/30/2025 10:20 AM EDT Office Visit [facility] [place] [address] [place] [address] Serjio Jacobo MD [address] [facility] [address] [place] [address] 06/12/2025 Hospital Encounter [facility] [address] [place] [address] Dyllan Paul MD [address] [facility] [place] [address] 06/24/2025 2:45 PM EDT Office Visit [facility] [address] [place] [address] Dyllan Paul MD [id number] [place] [address] Scheduled Procedures Name Priority Associated Diagnoses Date/Ti me PROSTATECTOMY, RADICAL, ROBOT-ASSISTED Prostate CA (CMS/HCC) documented as of this encounter Procedures Procedure Name Priority Date/Time Associated Diagnosis Comments CT ABDOMEN OUTSIDE IMAGES 05/13/2024 8:49 AM EDT documented in this encounter Results * CT ABDOMEN OUTSIDE IMAGES (05/13/2024 8:49 AM EDT) Anatomical Region Laterality Modality Computed Tomogra phy 05/13/2024 8:49 AM EDT us External Provider IMG CT PROCEDURES Final [...] documented as of this encounter Care Teams Vp Treasurer Relationship Specialty Start Date End Date Murray Prajapati MD [address] [facility] [address] [place] [address] PCP - General 03/06/23 Jaja Camara APRN [address] [facility] [address] [address] Referring Physician Gastroenterology 03/06/23 Dyllan Paul MD [address] [place] [address] Surgeon Urology 04/29/25 documented as of this encounter
--- OUTSIDE RECORDS SUMMARY | 2025-05-16 10:12 | XMS_ITS | Encounter Summary ---
Author Organization [facility] Address [address] [place] [address] Care Team Providers Care Cast Iron Drain Pipe Layer Name Role Phone Murray Prajapati MD Primary Care Provider Jaja Camara PAINTER AND DECORATOR Unavailable [phone] Reason for Referral * Consultation (Routine) - Closed Specialty Diagnoses / Procedures Referred By Silverio heredia Referred To Contact Transplant Diagnoses End-stage liver disease (CMS/HCC) Marco Joiner MD [address] [address] Phone: tel: fax: [facility] Transplant [place] [id number] [address] Phone: tel: fax: Referral ID Status Reason Start Date Expiration Date V isits Requested Visits Authorized [id number] Closed Specialty Services Required 03/27/2025 09/26/2026 1 1 Reason for Visit * Reason Comments Appointment Scheduling Encounter Details Date Type Department Care Team (Late Contact Info) Description 03/27/2025 Telephone [facility] Transplant [address] [address] [place] [address] Appointment (Scheduling) Social History Tobacco Use Types Packs/Day Years [...] Telephone Encounter - Linnea Martinez - 03/27/2025 10:04 AM EDT Insurance cleared - called Mr Lowe to schedule Updated New Patient Pre-Liver Initial Clinic Evaluation - scheduled for 03/28/2025 at 6:30am. Faxed request for additional records and images to [facility]. New Patient materials attached to eyefactive. documented in this encounter Plan of Treatment Upcoming Encounters Date Type Department Care Team (Late st Contact Info) Description 05/30/2025 8:45 AM EDT Clinical Support [facility] Transplant Center [address] [place] [address] 05/30/2025 10:20 AM EDT Office Visit [facility] Center [address] [place] [address] Serjio Jacobo MD [address] [place] [address] 06/12/2025 Hospital Encounter [facility] [address] [place] [address] Dyllan Paul MD [address] [place] [address] 06/24/2025 2:45 PM EDT Office Visit [facility] Urology [address] [place] [address] Dyllan Paul MD [address] [place] [address] Scheduled Procedures Name Priority Associated Diagnoses Date/Ti me PROSTATECTOMY, RADICAL, ROBOT-ASSISTED Prostate CA (CMS/HCC) Scheduled Referrals Name Type Priority Associated Diagnoses Order Schedule Initial Clinic Evaluation - Transplant Hepatology Outpatient Referral Routine End-stage liver disease (CMS/HCC) 1 Occurrences starting 03/27/2025 until 09/27/2026 documented as of this encounter Results * Hepatitis A Antibody IgG (03/28/2025 6:34 AM EDT) Hepatitis A Antibody IgG Negative Negative 03/28/2025 8:54 AM EDT [facility] Blood Venous blood specimen / Unknown Venipuncture / Unknown 03/28/2025 6:34 AM EDT 03/28/2025 7:09 AM EDT Marco Joiner MD LAB BLOOD ORDERABLES Final Resul t Performing Organization Address City/[facility]/ZIP Co de Phone Number [facility] [address] [place] [address] * HEPATITIS B SURFACE ANTIBODY, QUANTITATIVE (03/28/2025 6:34 AM EDT) Hepatitis B Surface Antibody, Quantitative <8.00 NonReactiv e: <8, Grayzone: 8 - <12, Reactive: >= 12 mIU/mL 03/28/2025 8:54 AM EDT [facility] Comment: Nonreactive. Individual is considered not immune to HBV infection. Blood Venous blood specimen / Unknown Venipuncture / Unknown 03/28/2025 6:34 AM EDT 03/28/2025 7:09 AM EDT Marco Joiner MD LAB BLOOD ORDERABLES Final Resul t [facility] [address] [place] [address] * Hepatitis B Surface Antigen (03/28/2025 6:34 AM EDT) Hepatitis B Surf Antigen Negative Negative 03/28/2025 8:54 AM EDT [facility] Blood Venous blood specimen / Unknown Venipuncture / Unknown 03/28/2025 6:34 AM EDT 03/28/2025 7:09 AM EDT us Marco Joiner MD LAB BLOOD ORDERABLES Final Resul t Performing Organization Address City/[facility] Co de Phone Number [facility] [address] [place] [address] * Hepatitis C Antibody (03/28/2025 6:34 AM EDT) Hepatitis C Antibody Negative Negative 03/28/2025 7:51 AM EDT [facility] Blood Venous blood specimen / Unknown Venipuncture / Unknown 03/28/2025 6:34 AM EDT 03/28/2025 7:08 AM EDT us Marco Joiner MD LAB BLOOD ORDERABLES Final Resul t Performing Organization Address [facility] de Phone Number [facility] [address] [place] [address] * Alcohol Urine (03/28/2025 6:34 AM EDT) Alcohol Urine Negative Negative 03/28/2025 3:29 PM EDT [facility] Urine Urine specimen obtained by clean catch procedure / Unknown Non-blood Collection / Unknown 03/28/2025 6:34 AM EDT 03/28/2025 7:11 AM EDT Narrative [facility] - 03/28/2025 3:29 PM EDT The correlation between urine and serum ethanol concentration is highly variable. Test performed by Gas Chromatography at the [facility] Chemistry [facility]. This test was developed and its performance characteristics determined by [facility]. It has not been cleared or approved by the FDA.The laboratory is regulated under CLIA as qualified to perform high-complexity testing. This test is used for clinical purposes only. us Marco Joiner MD LAB URINE ORDERABLES Final Resul t Performing Organization Address [facility] Co de Phone Number [facility] [address] [place] [address] * Nicotine Cotinine Metabolite (03/28/2025 6:34 AM EDT) NICOTINE <5 <5 ng/mL 04/01/2025 10:06 AM EDT [facility] Cotinine <5 <5 ng/mL 04/01/2025 10:06 AM EDT [facility] Blood Venous blood specimen / Unknown Venipuncture / Unknown 03/28/2025 6:34 AM EDT 03/28/2025 7:10 AM EDT Narrative [facility] - 04/01/2025 10:06 AM EDT Testing performed by LC-MS/MS at the [facility] Special Chemistry/Toxicology Laboratory. This test was developed and its performance characteristics determined by [facility]. This assay has not been cleared by the FDA. The laboratory is regulated under CLIA as qualified to perform high-complexity testing. This test is used for clinical purposes. us Marco Joiner MD LAB BLOOD ORDERABLES Final Resul t [facility] [address] [place] [address] * (ABNORMAL) Comprehensive Urine Drug Screening, Qualitative Assay, >= 27 Drug Classes (56:34 AM EDT) Acetaminophen Negative Negative 04/03/2025 3:00 PM EDT [facility] Alprazolam Negative Negative 04/03/2025 3:00 PM EDT [facility] Amantadine Negative Negative 04/03/2025 3:00 PM EDT [facility] Amitriptyline Negative Negative 04/03/2025 3:00 PM EDT [facility] Amphetamine Negative Negative 04/03/2025 3:00 PM EDT [facility] Atenolol Negative Negative 04/03/2025 3:00 PM EDT [facility] Benzoylecgonine Negative Negative 3:00 PM EDT [facility] Bisoprolol Negative Negative 04/03/2025 3:00 PM EDT [facility] Bupropion Negative Negative 04/03/2025 3:00 PM EDT [facility] Butalbital Negative Negative 04/03/2025 3:00 PM EDT [facility] Carbamazepine Negative Negative 04/03/2025 3:00 PM EDT [facility] Carisoprodol Negative Negative 04/03/2025 3:00 PM EDT [facility] Chlorpheniramine Negative Negative 04/03/20 3:00 PM EDT [facility] Citalopram Negative Negative 04/03/2025 3:00 PM EDT [facility] Clindamycin Negative Negative 04/03/2025 3:00 PM EDT [facility] Clonidine Negative Negative 04/03/2025 3:00 PM EDT [facility] Clopidogrel / Ticlopidine Negative Negative 04/03/2025 3:00 PM EDT [facility] Cocaethylene Negative Negative 04/03/2025 3:00 PM EDT [facility] Cocaine Negative Negative 04/03/2025 3:00 PM EDT [facility] Codeine Negative Negative 04/03/2025 3:00 PM EDT [facility] Cyclobenzaprine Negative Negative 3:00 PM EDT [facility] Desvenlafaxine Negative Negative 04/03/2025 3:00 PM EDT [facility] Dextromethorphan Negative Negative 04/03/20 3:00 PM EDT [facility] Diazepam Negative Negative 04/03/2025 3:00 PM EDT [facility] Diltiazem Negative Negative 04/03/2025 3:00 PM EDT [facility] Diphenhydramine Positive(A) Negative 04/03/20 3:00 PM EDT [facility] Doxepine Negative Negative 04/03/2025 3:00 PM EDT [facility] Doxylamine Positive(A) Negative 04/03/2025 3:00 PM EDT [facility] EDDP-Methadone metabolite Negative Negative 04/03/2025 3:00 PM EDT [facility] Fentanyl Negative Negative 04/03/2025 3:00 PM EDT [facility] Fluconazole Negative Negative 04/03/2025 3:00 PM EDT [facility] Fluoxetine Negative Negative 04/03/2025 3:00 PM EDT [facility] Guaifenesin Negative Negative 04/03/2025 3:00 PM EDT [facility] Haloperidol Negative Negative 04/03/2025 3:00 PM EDT [facility] Heroin/6-LEONIE Negative Negative 04/03/2025 3:00 PM EDT [facility] Hydrocodone Negative Negative 04/03/2025 3:00 PM EDT [facility] Hydroxyzine / Cetirizine metabolite Negative Negative 04/03/2025 3:00 PM EDT [facility] Ibuprofen Negative Negative 04/03/2025 3:00 PM EDT [facility] Imipramine Negative Negative 04/03/2025 3:00 PM EDT [facility] Ketamine Negative Negative 04/03/2025 3:00 PM EDT [facility] Labetolol Negative Negative 04/03/2025 3:00 PM EDT [facility] Lamotrigine Negative Negative 04/03/2025 3:00 PM EDT [facility] Levetiracetam Negative Negative 04/03/2025 3:00 PM EDT [facility] Lidocaine Negative Negative 04/03/2025 3:00 PM EDT [facility] MDA Negative Negative 04/03/2025 3:00 PM EDT [facility] MDMA Negative Negative 04/03/2025 3:00 PM EDT [facility] Memantine Negative Negative 04/03/2025 3:00 PM EDT [facility] Meperidine Negative Negative 04/03/2025 3:00 PM EDT [facility] Meprobamate Negative Negative 04/03/2025 3:00 PM EDT [facility] Metaxalone Negative Negative 04/03/2025 3:00 PM EDT [facility] Methamphetamine Negative Negative 3:00 PM EDT [facility] Methocarbamol Negative Negative 04/03/2025 3:00 PM EDT [facility] Methylecgonine Negative Negative 04/03/2025 3:00 PM EDT [facility] Metoclopramide Negative Negative 04/03/2025 3:00 PM EDT [facility] Metoprolol Negative Negative 04/03/2025 3:00 PM EDT [facility] Metronidazole Negative Negative 04/03/2025 3:00 PM EDT [facility] Midazolam Negative Negative 04/03/2025 3:00 PM EDT [facility] Midazolam Metabolite Negative Negative 04/03/2025 3:00 PM EDT [facility] Mirtazapine Negative Negative 04/03/2025 3:00 PM EDT [facility] Misc Test Result Negative Negative 04/03/20 3:00 PM EDT [facility] Naproxen Negative Negative 04/03/2025 3:00 PM EDT [facility] Nefazodone Negative Negative 04/03/2025 3:00 PM EDT [facility] Norfentanyl Negative Negative 04/03/2025 3:00 PM EDT [facility] Nortriptyline Negative Negative 04/03/2025 3:00 PM EDT [facility] Ordanstron Negative Negative 04/03/2025 3:00 PM EDT [facility] Oxcarbazepine Negative Negative 04/03/2025 3:00 PM EDT [facility] Oxycodone Negative Negative 04/03/2025 3:00 PM EDT [facility] Paroxethine Negative Negative 04/03/2025 3:00 PM EDT [facility] Phenobarbital Negative Negative 04/03/2025 3:00 PM EDT [facility] Phentermine Negative Negative 04/03/2025 3:00 PM EDT [facility] Phenytoin Negative Negative 04/03/2025 3:00 PM EDT [facility] Primidone Negative Negative 04/03/2025 3:00 PM EDT [facility] Promethazine Negative Negative 04/03/2025 3:00 PM EDT [facility] Propofol Negative Negative 04/03/2025 3:00 PM EDT [facility] Propranolol Negative Negative 04/03/2025 3:00 PM EDT [facility] Quetiapine Negative Negative 04/03/2025 3:00 PM EDT [facility] Quinine Negative Negative 04/03/2025 3:00 PM EDT [facility] Rantidine Negative Negative 04/03/2025 3:00 PM EDT [facility] Sertraline Negative Negative 04/03/2025 3:00 PM EDT [facility] Spironolactone Negative Negative 04/03/2025 3:00 PM EDT [facility] Tizanidine Negative Negative 04/03/2025 3:00 PM EDT [facility] Topiramate Negative Negative 04/03/2025 3:00 PM EDT [facility] Tramadol Negative Negative 04/03/2025 3:00 PM EDT [facility] Trazadone/ Trazadone metabolite Negative Negative 04/03/2025 3:00 PM EDT [facility] Trimethoprim Negative Negative 04/03/2025 3:00 PM EDT [facility] Valproic Acid Negative Negative 04/03/2025 3:00 PM EDT [facility] Venlafaxine Negative Negative 04/03/2025 3:00 PM EDT [facility] Verapamil Negative Negative 04/03/2025 3:00 PM EDT [facility] Zolpidem Negative Negative 04/03/2025 3:00 PM EDT [facility] Xylazine Negative Negative 04/03/2025 3:00 PM EDT [facility] Urine Urine specimen obtained by clean catch procedure / Unknown Non-blood Collection / Unknown 03/28/2025 6:34 AM EDT 03/28/2025 7:11 AM EDT us Marco Joiner MD LAB URINE ORDERABLES Final Resul t [facility] [address] [place] [address] * (ABNORMAL) Protime-INR (03/28/2025 6:34 AM EDT) Prothrombin Time 18.5(H) 12.0 - 14.3 sec LAB COAGULATION METHOD 03/28/2025 8:13 AM EDT [facility] INR 1.5(H) 0.9 - 1.1 LAB COAGULATION METHOD 03/28/2025 8:13 AM EDT [facility] Blood Venous blood specimen / Unknown Venipuncture / Unknown 03/28/2025 6:34 AM EDT 03/28/2025 7:09 AM EDT Narrative [facility] - 03/28/2025 8:13 AM EDT OPTIMAL INR RANGES FOR PATIENT ON ORAL ANTICOAGULANT THERAPY Prevention of venous thromboembolism INR 2.0 to 3.0 In patients with heart disease: Atrial fibrillation INR 2.0 to 3.0 Valvular heart disease INR 2.0 to 3.0 Tissue heart valves INR 2.0 to 3.0 Mechanical prosthetic valves INR 2.5 to 3.5 Prevention of recurrent ND INR 2.5 to 3.5 us Marco Joiner MD LAB BLOOD ORDERABLES Final Resul t [facility] [address] [place] [address] * (ABNORMAL) Comprehensive metabolic panel (03/28/2025 6:34 AM EDT) Glucose, Plasma 131(H) 74 - 99 mg/dL 03/28/2025 7:44 AM EDT [facility] BUN, Plasma 10 8 - 23 mg/dL 03/28/2025 7:44 AM EDT [facility] Creatinine, Plasma 0.82 0.70 - 1.20 mg/dL 03/28/2025 7:44 AM EDT [facility] BUN/Creatinine Ratio 12 03/28/2025 7:44 AM EDT [facility] Sodium, Plasma 139 136 - 145 mmol/L 03/28/2025 7:44 AM EDT [facility] Potassium, Plasma 3.6 3.6 - 4.9 mmol/L 03/28/2025 7:44 AM EDT [facility] Chloride, Plasma 105 97 - 107 mmol/L 03/28/2025 7:44 AM EDT [facility] CO2, Plasma 24 22 - 29 mmol/L 03/28/2025 7:44 AM EDT [facility] Anion Gap 10 6 - 16 mmol/L 03/28/2025 7:44 AM EDT [facility] Total Calcium, Plasma 8.5(L) 8.9 - 10.2 mg/dL 03/28/2025 7:44 AM EDT [facility] Total Protein 5.9(L) 6.3 - 7.9 g/dL 03/28/2025 7:44 AM EDT [facility] Albumin, Plasma 3.4(L) 3.5 - 5.2 g/dL 03/28/2025 7:44 AM EDT [facility] AST, Plasma 96(H) 10 - 50 U/L 03/28/2025 7:44 AM EDT [facility] Comment:Hemolyzed, result ma y be falsely increased. ALT, Plasma 53(H) 10 - 50 U/L 03/28/2025 7:44 AM EDT [facility] Alkaline Phosphatase, Plasma 170(H) 40 - 115 U/L 03/28/2025 7:44 AM EDT [facility] Total Bilirubin, Plasma 3.7(H) 0.2 - 1.1 mg/dL 03/28/2025 7:44 AM EDT [facility] eGFRcr 95.1 mL/min/1.7 3m*2 03/28/2025 7:44 AM EDT [facility] Comment:Reported eGFRcr in m L/min/1.73m2 is based the CKD-EPI 2020 equation that does not use a race coefficient. Blood Venous blood specimen / Unknown Venipuncture / Unknown 03/28/2025 6:34 AM EDT 03/28/2025 7:09 AM EDT us Marco Joiner MD LAB BLOOD ORDERABLES Final Resul t [facility] [address] [place] [address] * (ABNORMAL) Hemogram (CBC) (03/28/2025 6:34 AM EDT) WBC Count 6.65 3.70 - 10.30 10*3/uL LAB HEMATOLOGY METHOD 03/28/2025 8:38 AM EDT [facility] RBC Count 4.69 4.60 - 6.10 10*6/uL LAB HEMATOLOGY METHOD 03/28/2025 8:38 AM EDT [facility] HGB 15.2 13.7 - 17.5 g/dL LAB HEMATOLOGY METHOD 03/28/2025 8:38 AM EDT [facility] HCT 45.2 40.0 - 51.0 % LAB HEMATOLOGY METHOD 03/28/2025 8:38 AM EDT [facility] Platelet Count 92(L) 155 - 369 10*3/uL LAB HEMATOLOGY METHOD 03/28/2025 8:38 AM EDT [facility] MCV 96 79 - 98 fL LAB HEMATOLOGY METHOD 03/28/2025 8:38 AM EDT [facility] MCH 32.4(H) 26.0 - 32.0 pg LAB HEMATOLOGY METHOD 03/28/2025 8:38 AM EDT [facility] MCHC 33.6 30.7 - 35.5 g/dL LAB HEMATOLOGY METHOD 03/28/2025 8:38 AM EDT [facility] RDW 15.3(H) 11.5 - 14.5 % LAB HEMATOLOGY METHOD 03/28/2025 8:38 AM EDT [facility] MPV 11.2 8.8 - 12.5 fL LAB HEMATOLOGY METHOD 03/28/2025 8:38 AM EDT [facility] nRBC 0.0 <=0.0 per 100 WBCs LAB HEMATOLOGY METHOD 03/28/2025 8:38 AM EDT [facility] Blood Venous blood specimen / Unknown Venipuncture / Unknown 03/28/2025 6:34 AM EDT 03/28/2025 7:11 AM EDT us Marco Joiner MD LAB BLOOD ORDERABLES Final Resul t [facility] [address] [place] [address] * Alpha fetoprotein, serum (03/28/2025 6:34 AM EDT) Alpha Fetoprotein, Serum 4.3 <10.0 ng/mL 03/28/2025 7:51 AM EDT [facility] Blood Venous blood specimen / Unknown Venipuncture / Unknown 03/28/2025 6:34 AM EDT 03/28/2025 7:10 AM EDT Narrative [facility] - 03/28/2025 7:51 AM EDT Performed by [employer] electrochemiluminescent immunoassay which is traceable to the 1st AFP IRP WHO Reference standard 72/255. Results obtained with different test methods or kits cannot be used interchangeably. Marco Joiner MD LAB BLOOD ORDERABLES Final Resul t [facility] [address] [place] [address] * ABO/Rh (03/28/2025 6:34 AM EDT) ABO/Rh O Positive 03/28/2025 6:25 AM EDT [facility] Blood Venous blood specimen / Unknown Venipuncture / Unknown 03/28/2025 6:34 AM EDT 03/28/2025 7:10 AM EDT Marco Joiner MD LAB BLOOD BANK TEST ORDERABLES F inal Result Performing Organization Address [facility] de Phone Number BLOOD BANK [address] [place] [address] documented in this encounter Visit Diagnoses Diagnosis [...] documented as of this encounter Care Teams Cast Iron Drain Pipe Layer Relationship Specialty Start Date End Date Murray Prajapati MD [address] [facility] [address] [place] [address] PCP - General 03/06/23 Jaja Camara APRN [address] [place] [facility] [address] [id number] Referring Physician Gastroenterology 03/06/23 documented as of this encounter
--- OUTSIDE RECORDS SUMMARY | 2025-05-16 10:12 | XMS_ITS | Clinical Summary ---
Author Organization [employer] Address [address] [place] [address] Care Team Providers Care Car Sales Associate Name Role Phone Murray Prajapati MD Primary Care Provider [phone] Allergies No known active allergies Medications tamsulosin (FLOMAX) 0.4 mg Cap 24 hr capsule Take 1 capsule (0.4 mg total) by mouth daily. 7 capsule 05/13/2024 Active Social History Tobacco Use Types Packs/Day Years Used Date Smoking Tobacco: Never Smokeless Tobacco: Never Tobacco Cessation:Counseling Given: Not Answered Alcohol Use Standard Drinks/Week Comments Not Currently 0 (1 standard drink = 0.6 oz pur e alcohol) Interpersonal Safety Answer Date Record ed Family or friends hurt you Not on file 12/08 Family or friends insult you Not on file Family or friends threaten you Not on file 0 12/08/2023 Family or friends scream or curse at you Not on file 12/08/2023 Housing Stability Answer Date Recorded Living situation today Not on file Living situation problems Not on file 2023 Food Insecurity Answer Date Recorded Food run out past 12 months Not on file 11/20 Food did not last past 12 months Not on file 12/08/2023 Employment Answer Date Recorded Help finding and keeping a job Not on file 0 12/08/2023 Family and Community Support Answer Richard e Recorded Help with Day to Day Activities Not on file 12/08/2023 Feeling Lonely or Isolated Not on file 12/08 Educational Attainment Answer Date Jack rded Speak language other than Czech at home Not on file 12/08/2023 Want help with school or training Not on file 12/08/2023 Depression Answer Date Recorded PHQ-2 Risk Not on file 12/08/2023 Disabilities Answer Date Recorded Difficulty concentrating Not on file 024 Difficulty doing errands alone Not on file 0 12/08/2023 Substance Use Answer Date Recorded Used prescription meds for non-medical reasons N ot on file 12/08/2023 Used illegal drugs past 12 months Not on file 12/08/2023 Sex and Gender Information Value Date Recorded Sex Assigned at Not on file Legal Sex Male 5:58 PM CDT Gender Identity Not on file Sexual Orientation Not on file Last Filed Vital Signs Vital Sign Reading Time Taken Comments Blood Pressure 131/76 05/13/2024 11:45 AM EDT Pulse 75 05/13/2024 11:45 AM EDT Temperature 36.6 C (97.8 F) 05/13/2024 7:37 AM EDT Respiratory Rate 23 05/13/2024 11:45 AM EDT Oxygen Saturation 96% 05/13/2024 7:37 AM EDT Inhaled Oxygen Concentration - - Weight 106.6 kg (235 lb) 05/13/2024 7:37 AM EDT Height 175.3 cm (5' 9 ) 05/13/2024 7:37 AM EDT Body Mass Index 34.7 05/13/2024 7:37 AM EDT Plan of Treatment Health Maintenance Due Date Last Done Comments CT Colonography 1955 Colonoscopy 1955 Colorectal Cancer Screening 1955 FOBT/FIT 1955 Fit-DNA (Cologuard) 1955 Sigmoidoscopy 1955 Depression Screening (12+) 1967 Hepatitis C Screening 1973 DTAP/TDAP/TD VACCINES (1 - Tdap) 1974 Pneumococcal 50+ years (1 of 1 - PCV) 2005 Respiratory Syncytial Virus (RSV) Adult or (1 - Risk 60-74 years 1-dose series) 2015 Shingles Vaccine (Zoster) (2 of 2) 12/24/20162015 COVID-19 VACCINE (4 - season) 2024 09/15/2021, 02/17/2021, 01/20/2021 Falls Risk Screening 11/20/2024 Tobacco Cessation Counseling and Screening (12+) 05/13/2025 05/13/2024 Influenza Vaccine (Season Ended) 2025 08/13/20 20 Insurance BLUE CROSS/BLUE SHIELD MEDICARE PART A ONLY Care Teams Car Sales Associate Relationship Specialty Start Date End Date Murray Prajapati MD [address] [place] [address] [place] [address] PCP - General General Internal Medicine 01/05/23
--- OUTSIDE RECORDS SUMMARY | 2025-05-16 10:12 | XMS_ITS | Referral Summary ---
Author Organization [employer] Address [address] [place] [address] Care Team Providers Care Mental Hygienist Name Role Phone Murray Prajapati MD Primary Care Provider [phone] Allergies No known active allergies Medications tamsulosin [...] Date Jack rded Speak language other than Thai at home Not on file 12/08/2023 Want [...] 05/13/2024 7:37 AM EDT Plan of Treatment Not on file Insurance [employer] [id number] BLUE CROSS/[place] [id number] Care Teams Mental Hygienist Relationship Specialty Start Date End Date Murray Prajapati MD [address] [place] [address] [place] [address] PCP - General General Internal Medicine 01/05/23
--- OUTSIDE RECORDS SUMMARY | 2025-05-16 10:12 | XMS_ITS | Encounter Summary ---
Author Organization [facility] Address [address] [place] [address] Care Team Providers Care Score Caller Name Role Phone Murray Prajapati MD Primary Care Provider [phone] Jaja Camara SIDING MECHANIC Unavailable [phone] Dyllan Paul MD Unavailable [phone] Encounter Details Date Type Department Care Team (Late Contact Info) Description 07/31/2024 Orders Only External Location [address] [place] [address] Provider, External Social History Tobacco Use Types [...] Description 05/30/2025 8:45 AM EDT Clinical Support [facility] [address] [place] [address] 05/30/2025 10:20 AM EDT Office Visit [facility] [place] [address] [place] [address] Serjio Jacobo MD [address] [facility] [address] [place] [address] 06/12/2025 Hospital Encounter [facility] A OPERATING ROOM [address] [place] [address] Dyllan Paul MD [address] [facility] [place] [address] 06/24/2025 2:45 PM EDT Office Visit [facility] [address], [address] [place] [address] Dyllan Paul MD [id number] [place] [address] Scheduled Procedures Name Priority Associated Diagnoses Date/Ti me PROSTATECTOMY, RADICAL, ROBOT-ASSISTED Prostate CA ([facility]) documented as of this encounter Procedures Procedure Name Priority Date/Time Associated Diagnosis Comments MR OUTSIDE IMAGES 07/31/2024 7:46 AM EDT documented in this encounter Results * MR transfer of outside films (07/31/2024 7:46 AM EDT) Anatomical Region Laterality Modality Magnetic Resonan ce 07/31/2024 7:46 AM EDT us External Provider IMG MRI [...] documented as of this encounter Care Teams Score Caller Relationship Specialty Start Date End Date Murray Prajapati MD [address] [facility] [address] [place] [address] PCP - General 03/06/23 Jaja Camara APRN [address] [facility] [address] [place] [address] Referring Physician Gastroenterology 03/06/23 Dyllan Paul MD [address] [facility] [address] [place] [address] Surgeon Urology 04/29/25 documented as of this encounter
--- OUTSIDE RECORDS SUMMARY | 2025-05-16 10:12 | XMS_ITS | Encounter Summary ---
Author Organization [facility] Address [address] [place] [address] Care Team Providers Care Tangible Personal Property Appraiser Name Role Phone Murray Prajapati MD Primary Care Provider [phone] Jaja Camara SPECIAL EDUCATION PARAEDUCATOR Unavailable [phone] Dyllan Paul MD Unavailable [phone] Encounter Details Date Type Department Care Team (Late Contact Info) Description 10/26/2010 Orders Only External Location [address] [place] [address] Provider, External Social History Tobacco Use Types [...] 05/30/2025 8:45 AM EDT Clinical Support [facility] Trans[facility] Center [address] [facility] [address] [place] [address] 05/30/2025 10:20 AM EDT Office Visit [facility] Transplant [place] [address] [place] [address] Serjio Jacobo MD [address] [place] [address] 06/12/2025 Hospital Encounter P[facility] A OPERATING ROOM [address] [place] [address] Dyllan Paul MD [address] [address] 06/24/2025 2:45 PM EDT Office Visit [facility] [address] [place] [address] Dyllan Paul MD [address] [address] Scheduled Procedures Name Priority Associated Diagnoses Date/Ti me PROSTATECTOMY, RADICAL, ROBOT-ASSISTED Prostate CA ([facility]) documented as of this encounter Procedures Procedure Name Priority Date/Time Associated Diagnosis Comments XR OUTSIDE IMAGES 10/26/2010 9:00 AM EST documented in this encounter Results * XR OUTSIDE IMAGES (10/26/2010 9:00 AM EST) Anatomical Region Laterality Modality Radiographic Julia ging 10/26/2010 9:00 AM EST us External Provider IMG XR PROCEDURES Final Result documented in this encounter Visit Diagnoses Not on filedocumented in this encounter Additional Health Concerns 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
--- OUTSIDE RECORDS SUMMARY | 2025-05-16 10:13 | XMS_ITS | Encounter Summary ---
Author Organization [facility] Address [address] [place] [address] Care Team Providers Care Special Delivery Carrier Name Role Phone Murray Prajapati MD Primary Care Provider [phone] Jaja Camara WARM IN WORKER Unavailable [phone] Encounter Details Date Type Department Care Team (Latest Contact Info) Description 04/03/2025 Travel Social History Tobacco Use Types Packs/Day [...] Clinical Support [facility] Trans[facility] Center [address] [place] [address] 05/30/2025 10:20 AM EDT Office Visit [facility] [address] [place] [address] Serjio Jacobo MD [address] [facility] [address] [place] [address] 06/12/2025 Hospital Encounter PAV A OPERATING ROOM [address] [place] [address] Dyllan Paul MD [address] [facility] [address] [place] [address] 06/24/2025 2:45 PM EDT Office Visit [facility] [address] [place] [address] Dyllan Paul MD [address] [facility] [address] [place] [address] Scheduled Procedures Name Priority Associated [...] documented as of this encounter Care Teams Special Delivery Carrier Relationship Specialty Start Date End Date Murray Prajapati MD [address] [facility] [address] [place] [address] PCP - General 03/06/23 Jaja Camara APRN 1210 [facility] [address] [place] [address] Referring Physician Gastroenterology 03/06/23 documented as of this encounter
--- OUTSIDE RECORDS SUMMARY | 2025-05-16 10:13 | XMS_ITS ---
Author Organization [facility] Address [address] [place] [address] Care Team Providers Care Rough Rice Grader Name Role Phone Murray Prajapati MD Primary Care Provider [phone] Jaja Camara AERONAUTICAL ENGINEERING TECHNOLOGIST Unavailable [phone] Dyllan Paul MD Unavailable [phone] Transplant Episode Liver Candidate [facility] ([place], [place]) - [facility] Referred on 03/27/2025 Marked as Active on 03/27/2025 Liver CoordinatorCorrie Williamson RN Fax: N/A Email: N/A Scores Score Value Updated Expires Exceptions/Sachi sons CPRA Not available MELD (Calc) 16 03/28/2025 Care Team Name Role Phone Fax Email Corrie Williamson RN Liver Coordinator [phone] N/A N/A Janis Rice Transfer Driver [phone] N/A N/A Marco Joiner MD Surgeon [phone] N/A Events Pre-Transplant Referred: 03/27/2025 Committee: 03/31/2025 Appointments (04/15/2025 - 06/15/2025) When With Visit Type Description 05/30/2025 Transplant LAB 05/30/2025 Transplant - Moiz Jacobo Office [facility] - Transplant
--- OUTSIDE RECORDS SUMMARY | 2025-05-16 10:13 | XMS_ITS | Encounter Summary ---
Author Organization [facility] Address [address] [place] [address] Care Team Providers Care Cloth Shrinker Name Role Phone Murray Prajapati MD Primary Care Provider [phone] Jaja Camara SURFACE GRINDING MACHINE HAND Unavailable [phone] Dyllan Paul MD Unavailable [phone] Encounter Details Date Type Department Care Team (Latest Contact Info) Description 04/29/2025 Travel Social History Tobacco Use Types Packs/Day Years Used Date Smoking Tobacco: Never Passive Smoke Exposure: Never Smokeless Tobacco: Never Alcohol Use Standard Drinks/Week Comments Not Currently [...] things Not at all 04/29/2025 12:43 PM Matt Bolivar Feeling down, depressed, or hopeless Not at all 04/29/2025 12:43 PM KELSIET Matt Sen Patient Health Questionnaire -2 Score [...] -9 Score 0 04/29/2025 12:43 PM EDT Mtat Sen documented as of this encounter Plan of Treatment Upcoming Encounters Date Type Department Care Team (Late st Contact Info) Description 05/30/2025 8:45 AM EDT Clinical Support [facility] Transplant [place] [address] [place] [address] 05/30/2025 10:20 AM EDT Office Visit [facility] [place] [address] [place] [address] Serjio Jacobo MD [address] [place] [address] 06/12/2025 Hospital Encounter PAV A OPERATING ROOM [address] [place] [address] Dyllan Paul MD [address] [place] [address] 06/24/2025 2:45 PM EDT Office Visit [facility] [address] [place] [address] Dyllan Paul MD [address] [facility] [address] [place] [address] Scheduled Procedures Name Priority Associated [...] documented as of this encounter Care Teams Cloth Shrinker Relationship Specialty Start Date End Date Murray Prajapati MD [address] [place] [address] PCP - General 03/06/23 Jaja Camara APRN 1210 [facility] [address] [place] [address] Referring Physician Gastroenterology 03/06/23 Dyllan Paul MD [address] [facility] [place] [address] Surgeon Urology 04/29/25 documented as of this encounter
--- OUTSIDE RECORDS SUMMARY | 2025-05-16 10:13 | XMS_ITS | Encounter Summary ---
Author Organization [facility] Address [address] [place] [address] Care Team Providers Care Net Developer Contract Name Role Phone Murray Prajapati MD Primary Care Provider [phone] Jaja Camara RICE FARMWORKER Unavailable [phone] Encounter Details Date Type Department Care Team (Late st Contact Info) Description 04/18/2025 Telephone [facility] Transplant [place] [address] [facility] [address] [place] [address] Mar Prajapati Social History Tobacco Use Types [...] * Telephone Encounter - Mar Prajapati - 04/18/2025 8:51 AM EDT Called patient to r/s his appointment on 05/30/25 due to provider not being in the office. Patient did not answer. A VM was left asking him to return my call to r/s appointment. documented in this encounter Plan of Treatment Upcoming Encounters Date Type Department Care Team (Late st Contact Info) Description 05/30/2025 8:45 AM EDT Clinical Support [facility] Trans[facility] [address] [place] [address] 05/30/2025 10:20 AM EDT Office Visit [facility] Transplant [place] [address] [place] [address] Serjio Jacobo MD [address] [place] [address] 06/12/2025 Hospital Encounter PAV A OPERATING ROOM [address] [place] [address] Dyllan Paul MD [address] [facility] [address] [place] [address] 06/24/2025 2:45 PM EDT Office Visit [facility] Urology [address] [place] [address] Dyllan Paul MD [address] [facility] [address] [place] [address] Scheduled Procedures Name Priority Associated Diagnoses Date/Ti [...] documented as of this encounter Care Teams Net Developer Contract Relationship Specialty Start Date End Date Murray Prajapati MD [address] [facility] [address] [place] [address] PCP - General 03/06/23 Jaja aCmara APRN [address] [facility] [address] [place] [address] Referring Physician Gastroenterology 03/06/23 documented as of this encounter
--- OUTSIDE RECORDS SUMMARY | 2025-05-16 10:13 | XMS_ITS | Clinical Summary ---
Author Organization [facility] Address [address] [place] [address] Care Team Providers Care Matting Press Tender Name Role Phone Murray Prajapati MD Primary Care Provider [phone] Jaja Camara MOTOR SETTER Unavailable [phone] Dyllan Paul MD Unavailable [phone] Allergies No known active allergies Medications lisinopril 20 MG tablet Take 20 mg by mouth 1 (one) time each day. Active atorvastatin (Lipitor) 10 MG tablet Take 10 mg by mouth 1 (one) time each day. 3 Active multivitamin-iro m-gildmhkh-kzrjd acid (Centrum) chewable tablet Chew 1 tablet 1 (one) time each day. Active Vitamin E 450 MG (1000 UT) capsule Take 1,000 Units by mouth 1 (one) time each day. Active psyllium (Metamucil) 58.6 % powder Take 1 packet by mouth 1 (one) time each day. Active DIPHENHYDRAMINE HCL, SLEEP, PO Take 16 mg by mouth at night if needed (sleep). Active Melatonin 5 MG tablet tablet Take 10 mg by mouth at night if needed for sleep. Active Ascorbic Acid (VITAMIN C GUMMIE PO) Take 1 Chewable tablet by mouth 1 (one) time each day. Active triamcinolone (Kenalog) 0.1 % ointment Apply 1 Application topically 2 times a day. 5 Active mupirocin (Bactroban) 2 % ointment 5 Active clobetasol (Temovate) 0.05 % external solution 04/17/202 5 Active carvedilol (Coreg) 3.125 MG tabletIndication s:Esophageal varices without bleeding, unspecified esophageal varices type (CMS/HCC) Take 1 tablet by mouth 2 times a day. 60 tablet 2 5 Active ketoconazole (NIZOral) 2 % cream Active ketoconazole (NIZOral) 2 % shampoo 5 Active Active Problems No known active problems Encounters Date Type Department Care Team Description 04/29/2025 12:45 PM EDT Consult [facility] Urology [address] [place] [address] Dyllan Paul MD Prostate cancer (CMS/HCC) (Primary Dx) 04/29/2025 Travel 04/18/2025 Telephone [facility] Transplant [place] [phone] [address] Mar Prajapati 04/03/2025 7:10 AM EDT - 04/03/2025 11:59 PM EDT Hospital Encounter [facility] [address] [place] [address] End-stage liver disease (CMS/HCC); Alcoholic cirrhosis, unspecified whether ascites present (CMS/HCC); Hepatic lesion Discharge Disposition: Home or Self Care 04/03/2025 Travel 04/02/2025 Telephone [facility] Transplant [address] [address] Mar Prajapati 03/28/2025 8:20 AM EDT Office Visit [facility] Transplant [address] [address] Virginia Campa MD Other cirrhosis of liver (CMS/HCC) (Primary Dx); Pre-transplant evaluation for liver transplant; Cellulitis of left lower extremity; End-stage liver disease (CMS/HCC); Esophageal varices without bleeding, unspecified esophageal varices type (CMS/HCC); Alcohol use disorder; Primary prostate adenocarcinoma (CMS/HCC); History of liver biopsy; 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; Primary hypertension; Hyperbilirubinemia 03/28/2025 Travel 03/27/2025 Travel 03/27/2025 Telephone [facility] Transplant Center [address] [address] Linnea Martinez Appointment (Scheduling) 03/27/2025 Telephone [facility] Transplant Center [address] [address] Linnea Martinez Appointment (Appointment request) 03/26/2025 Lab Requisition [facility] [address] [place] [address] Dyllan Paul MD Elevated prostate specific antigen (PSA) 03/20/2025 Telephone [facility]rology [address] [place] [address] Keri Waters 02/13/2025 Orders Only External Location [address] [place] [address] Provider, External 02/13/2025 Orders Only External Location [address] [place] [address] Provider, External from Last 3 Months Family History Medical History Relation Name Comments Heart disease Mother Relation Name Status Comments Mother Social History Tobacco Use Types Packs/Day Years [...] Mass Index 37.83 04/29/2025 12:45 PM EDT Plan of Treatment Upcoming Encounters Date Type Department Care Team (Late st Contact Info) Description 05/30/2025 8:45 AM EDT Clinical Support [facility] Transplant [place] [address] [facility] [address] [place] [address] 05/30/2025 10:20 AM EDT Office Visit [facility] Transplant [place] [address] [place] [address] Serjio Jacobo MD [address] [facility] [address] [place] [address] 06/12/2025 Hospital Encounter [facility] [address] [place] [address] Dyllan Paul MD [address] [facility] [address] [place] [address] 06/24/2025 2:45 PM EDT Office Visit [facility] Urology [address] [place] [address] Dyllan Paul MD [address] [facility] [address] [place] [address] Scheduled Procedures Name Priority Associated Diagnoses Date/Ti me PROSTATECTOMY, RADICAL, ROBOT-ASSISTED Prostate CA (CMS/HCC) Health Maintenance Due Date Last Done Comments [facility]-Infant/Child/Adol SDOH Screenings 1955 [facility]- SDOH Screenings 1973 [facility]-Adult SDOH Screenings 1973 [facility]-DTaP,Tdap,and Td Vaccines (1 - Tdap) 1974 [facility]-Hepatitis A Vaccines (1 of 2 - Risk 2-dose series) 1974 [facility]-Pneumococcal Vaccine: 50+ Years (1 of 2 - PCV) 1974 CT Colonography 2000 Colonoscopy 2000 FIT-DNA 2000 FIT 2000 FOBT 2000 Sigmoidoscopy 2000 [facility]-Colorectal Cancer Screening 2000 [facility]-RSV Vaccine: 60+ Years or (1 - Risk 60-74 years 1-dose series) 2015 [facility]-Zoster Vaccines (1 of 2) 12/24/2016 10/29/2016 [id number] Vaccine ( season) 2024 09/15/2021, 02/17/2021, 01/20/2021 [facility]-Influenza Vaccine (Season Ended) 2025 08/13/2020 [facility]-Depression Screening 04/29/2026 04/29/2025, 04/20 [facility]-Hepatitis C Screening Completed 03/28/2025, [facility]-Obesity Intervention Completed 025, 03/28/2025, 05/04/2023, Additional history exists HPV Vaccines Aged Out No longer eligi ble based on patient's age to complete this topic [facility]-HIB Vaccines Aged Out No longer e ligible based on patient's age to complete this topic [facility]-IPV Vaccines Aged Out No longer e ligible based on patient's age to complete this topic [facility]-Rotavirus Vaccines Aged Out No lo nger eligible based on patient's age to complete this topic Goals Goal Patient Goal Type Associated Problems Recent Progress Patient-Stated? Author Autogenerat ed Goal Care Plan Autogenerated Problem No Ginny Fritz Procedures Procedure Name Priority Date/Time Associated Diagnosis Comments CT ABDOMEN PELVIS W AND WO IV CONTRAST Routine 04/03/2025 8:21 AM EDT End-stage liver disease (CMS/HCC) Alcoholic cirrhosis, unspecified whether ascites present (CMS/HCC) Hepatic lesion BLOOD CULTURE (AEROBIC/ANAEROBIC SET) Routine 03/28/2025 9:43 AM EDT Cellulitis of left lower extremity PAIN MANAGEMENT, QUANTITATIVE URINE DRUG TESTING Routine 03/28/2025 6:34 AM EDT End-stage liver disease (CMS/HCC) PHOSPHATIDYLETHANOL (PETH), WHOLE BLOOD, QUANTITATIVE (SO) Routine 03/28/2025 6:34 AM EDT Alcoholic cirrhosis, unspecified whether ascites present (CMS/HCC) ABO/RH Routine 03/28/2025 6:34 AM EDT End-stage liver disease (CMS/HCC) ALPHA FETOPROTEIN, SERUM Routine 025 6:34 AM EDT End-stage liver disease (CMS/HCC) CBC W/O DIFFERENTIAL Routine 03/28/2025 6:34 AM EDT End-stage liver disease (CMS/HCC) COMPREHENSIVE METABOLIC PANEL, PLASMA Routine 03/28/2025 6:34 AM EDT End-stage liver disease (CMS/HCC) PROTHROMBIN TIME(PT) / INR Routine 03/28 6:34 AM EDT End-stage liver disease (CMS/HCC) COMPREHENSIVE URINE DRUG SCREENING,QUALITATIVE ASSAY, >= 27 DRUG CLASSES Routine 03/28/2025 6:34 AM EDT End-stage liver disease (CMS/HCC) NICOTINE AND COTININE METABOLITE, SERUM, QUANTITATIVE Routine 03/28/2025 6:34 AM EDT End-stage liver disease (CMS/HCC) PAIN MANAGEMENT, QUANTITATIVE URINE DRUG TESTING Routine 03/28/2025 6:34 AM EDT End-stage liver disease (CMS/HCC) ALCOHOL, URINE Routine 03/28/2025 6:34 AM EDT End-stage liver disease (CMS/HCC) HEPATITIS C ANTIBODY W/REFLEX TO HCV QUANT PCR Routine 03/28/2025 6:34 AM EDT End-stage liver disease (CMS/HCC) HEPATITIS B SURFACE ANTIGEN Routine 03/28/2025 6:34 AM EDT End-stage liver disease (CMS/HCC) HEPATITIS B SURFACE ANTIBODY, QUANTITATIVE Routine 03/28/2025 6:34 AM EDT End-stage liver disease (CMS/HCC) HEPATITIS A ANTIBODY IGG Routine 025 6:34 AM EDT End-stage liver disease (CMS/HCC) SURGICAL PATHOLOGY CONSULT Routine 03/26 1:30 PM EDT Elevated prostate specific antigen (PSA) PET OUTSIDE IMAGES 02/13/2025 12 :41 PM EDT PET OUTSIDE IMAGES 02/13/2025 12 :00 PM EDT from Last 3 Months Results * CT Liver (04/03/2025 8:21 AM [...] are consistent with and integrated into the [place] [employer] for the Study of Liver Diseases [...] are consistent with and integrated into the [place] Associationfor the Study of Liver Diseases (AASLD) [...] Jacobo MD IMG CT PROCEDURES Final Result * Blood Culture (Aerobic/Anaerobet Set) (03/28/2025 9:43 AM EDT) Culture No growth at day 5 KEELY 04/02/2025 11:01 AM EDT [facility] Blood Structure of part of right upper limb / Unknown Venipuncture / Unknown 03/28/2025 9:43 AM EDT 03/28/2025 10:12 AM EDT Virginia Campa MD LAB MICROBIOLOGY - GENERAL ORDERABLES Final Result [facility] [address] [place] [address] * HEPATITIS B SURFACE ANTIBODY, QUANTITATIVE (03/28/2025 6:34 AM EDT) Hepatitis B Surface Antibody, Quantitative <8.00 NonReactiv e: <8, Grayzone: 8 - <12, Reactive: >= 12 mIU/mL 03/28/2025 8:54 AM EDT [facility] Comment: Nonreactive. Individual is considered not immune to HBV infection. Blood Venous blood specimen / Unknown Venipuncture / Unknown 03/28/2025 6:34 AM EDT 03/28/2025 7:09 AM EDT us Marco Joiner MD LAB BLOOD ORDERABLES Final Resul t [facility] [address] [place] [address] * Pain Management, Quantitative Urine Drug Testing (03/28/2025 6:34 AM EDT) [place] Alprazolam <20 <20 ng/mL 04/01 5:54 AM EDT [facility] [place] Midazolam <20 <20 ng/mL 2024 5:54 AM EDT [facility] [place] Triazolam <20 <20 ng/mL 2024 5:54 AM EDT [facility] Alprazolam <10 <10 ng/mL 04/01/2025 5:54 AM EDT [facility] Aminoclonazepam <20 <20 ng/mL 5:54 AM EDT [facility] Amphetamine <50 <50 ng/mL 04/01/2025 5:54 AM EDT [facility] Benzoylecgonine <50 <50 ng/mL 5:54 AM EDT [facility] Buprenorphine <10 <10 ng/mL 04/01/2025 5:54 AM EDT [facility] Buprenorphine Glucuronide <50 <50 ng/mL 04/01/2025 5:54 AM EDT [facility] Butalbital <50 <50 ng/mL 04/01/2025 5:54 AM EDT [facility] 9 Carboxy THC <10 <10 ng/mL 04/01/2025 5:54 AM EDT [facility] 9 Carboxy THC Glucuronide <25 <25 ng/mL 04/01/2025 5:54 AM EDT [facility] Clonazepam <10 <10 ng/mL 04/01/2025 5:54 AM EDT [facility] Codeine <50 <50 ng/mL 04/01/2025 5:54 AM EDT [facility] Codeine Glucuronide <50 <50 ng/mL 04/01 5:54 AM EDT [facility] Cyclobenzaprine <50 <50 ng/mL 5:54 AM EDT [facility] Desmethyl Tramadol <50 <50 ng/mL 2024 5:54 AM EDT [facility] Diazepam <10 <10 ng/mL 04/01/2025 5:54 AM EDT [facility] EDDP - Methadone Metabolite <50 <50 ng/mL 04/01/2025 5:54 AM EDT [facility] Fentanyl <1 <1 ng/mL 04/01/2025 5:54 AM EDT [facility] Hydrocodone <50 <50 ng/mL 04/01/2025 5:54 AM EDT [facility] Hydromorphone <50 <50 ng/mL 04/01/2025 5:54 AM EDT [facility] Hydromorphone Glucuronide <50 <50 ng/mL 04/01/2025 5:54 AM EDT [facility] Lorazepam <20 <20 ng/mL 04/01/2025 5:54 AM EDT [facility] Lorazepam Glucuronide <50 <50 ng/mL 04/01/2025 5:54 AM EDT [facility] MDA <50 <50 ng/mL 04/01/2025 5:54 AM EDT [facility] MDMA <50 <50 ng/mL 04/01/2025 5:54 AM EDT [facility] Meperidine <50 <50 ng/mL 04/01/2025 5:54 AM EDT [facility] Methadone <50 <50 ng/mL 04/01/2025 5:54 AM EDT [facility] Methamphetamine <50 <50 ng/mL 5:54 AM EDT [facility] Methylphenidate <50 <50 ng/mL 5:54 AM EDT [facility] 6 Monoacetyl morphine <10 <10 ng/mL 04/01/2025 5:54 AM EDT [facility] Morphine <50 <50 ng/mL 04/01/2025 5:54 AM EDT [facility] Morphine Glucuronide <50 <50 ng/mL 03/20 5:54 AM EDT [facility] Naloxone <50 <50 ng/mL 04/01/2025 5:54 AM EDT [facility] Naloxone Glucuronide <50 <50 ng/mL 03/20 5:54 AM EDT [facility] Norbuprenorphine <10 <10 ng/mL 04/01/20 5:54 AM EDT [facility] Norbuprenorphine Glucuronide <50 <50 ng/mL 04/01/2025 5:54 AM EDT [facility] Nordiazepam <20 <20 ng/mL 04/01/2025 5:54 AM EDT [facility] Norfentanyl <2 <2 ng/mL 04/01/2025 5:54 AM EDT [facility] Normeperidine <50 <50 ng/mL 04/01/2025 5:54 AM EDT [facility] PCP Quant, Ur <50 <50 ng/mL 04/01/2025 5:54 AM EDT [facility] Phenobarbital <50 <50 ng/mL 04/01/2025 5:54 AM EDT [facility] Oxazepam <20 <20 ng/mL 04/01/2025 5:54 AM EDT [facility] Oxazepam Glucuronide <50 <50 ng/mL 03/20 5:54 AM EDT [facility] Oxycodone <50 <50 ng/mL 04/01/2025 5:54 AM EDT [facility] Oxymorphone <50 <50 ng/mL 04/01/2025 5:54 AM EDT [facility] Oxymorphone Glucuronide <50 <50 ng/mL 04/01/2025 5:54 AM EDT [facility] Secobarbital <50 <50 ng/mL 04/01/2025 5:54 AM EDT [facility] Tramadol <50 <50 ng/mL 04/01/2025 5:54 AM EDT [facility] Temazepam <20 <20 ng/mL 04/01/2025 5:54 AM EDT [facility] Temazepam Glucuronide <50 <50 ng/mL 04/01/2025 5:54 AM EDT [facility] Urine Urine specimen obtained by clean catch procedure / Unknown Non-blood Collection / Unknown 03/28/2025 6:34 AM EDT 03/28/2025 7:11 AM EDT Narrative [facility] - 04/01/2025 5:54 AM EDT Methodology:Quantitative Liquid Chromatography-Tandem Mass Spectrometry (LC- MS/MS) This report is intended for use in clinical monitoring or management of patients. It is NOT intended for use in employment-related drug testing. For pain management, the absence of expected drug(s) and/or drug metabolite(s) may indicate non-compliance, inappropriate timing of specimen collection relative to drug administration, poor drug absorption, or limitations of testing. Interpretive questions should be directed to the laboratory. This test was developed and its performance characteristics determined by [facility] in manner consistent with CLIA requirements. This test has not been cleared or approved by the FDA. us Marco Joiner MD LAB URINE ORDERABLES Final Resul t [facility] [address] [place] [address] * Phosphatidylethanol (PEth), Whole Blood, Quant (03/28/2025 6:34 AM EDT) PEth 16:0/18:2 (PLPEth) 290 ng/mL 03/30/2025 2:58 PM EDT [facility] ([facility]) PEth 16:0/18:1 (POPEth) 316 ng/mL 03/30/2025 2:58 PM EDT [facility] ([facility]) EER Peth See Note 03/30/2025 2:58 PM EDT [facility] ([facility]) PEth Interpretation See Comment 03/30/2025 2:58 PM EDT [facility] ([facility]) Blood Venous blood specimen / Unknown Venipuncture / Unknown 03/28/2025 6:34 AM EDT 03/28/2025 7:06 AM EDT Narrative [facility] ([facility]) - 03/30/2025 2:58 PM EDT PEth 16:0/18:1 (POPEth) Less than 10 ng/mL............Not detected Less than 20 ng/mL............Abstinence or light alcohol consumption 20 - 200 ng/mL................Moderate alcohol consumption Greater than 200 ng/mL........Heavy alcohol consumption or chronic alcohol use (Reference: Nichole Means and Mike Lowe 2018 J. Forensic Sci) Reference ranges are not well established. Authorized individuals can access the [email or web address] Enhanced Report with an Education Everytime Connect account using the following link. Your local lab can assist you in obtaining the patient report if you don't have a Connect account. [email or web address]/?[email or web address] Phosphatidylethanol (PEth) is a group of phospholipids formed in the presence of ethanol, phospholipase D and phosphatidylcholine. PEth is known to be a direct alcohol biomarker. The predominant PEth homologues are PEth 16:0/18:1 (POPEth) and PEth 16:0/18:2 (PLPEth), which account for 37-46% and 26-28% of the total PEth homologues, respectively. PEth is incorporated into the phospholipid membrane of red blood cells and has a general half-life of 4-10 days and a window of detection of 2-4 weeks. However, the window of detection is longer in individuals who chronically or excessively consume alcohol. The limit of quantification is 10 ng/mL. Serial monitoring of PEth may be helpful in monitoring alcohol abstinence over time. PEth results should be interpreted in the context of the patient's clinical and behavioral history. Patients with advanced liver disease may have falsely elevated PEth concentrations (Arabella DOMINIQUE et al 2018, Alcoholism Clinical & Experimental Research). This test was developed and its performance characteristics determined by [facility]. It has not been cleared or approved by the U.S. Food and Drug Administration. This test was performed in a CLIA-certified laboratory and is intended for clinical purposes. Performed By: [facility] [address] [place] [id number] Block Trimmer: Sotero Banuelos MD, PhD CLIA Number: [id number] Serjio Jacobo MD LAB REF LAB BLOOD AND FLUID OR D Final Result Performing Organization Address [facility] de Phone Number [facility] ([facility]) [address] [place] [address] * Alpha fetoprotein, serum (03/28/2025 6:34 AM EDT) Alpha Fetoprotein, Serum 4.3 <10.0 ng/mL 03/28/2025 7:51 AM EDT [facility] Blood Venous blood specimen / Unknown Venipuncture / Unknown 03/28/2025 6:34 AM EDT 03/28/2025 7:10 AM EDT Narrative [facility] - 03/28/2025 7:51 AM EDT Performed by [facility] electrochemiluminescent immunoassay which is traceable to the 1st AFP IRP WHO Reference standard 72/255. Results obtained with different test methods or kits cannot be used interchangeably. Marco Joiner MD LAB BLOOD ORDERABLES Final Resul t Performing Organization Address [facility] Co de Phone Number [facility] [address] [place] [address] * Hepatitis A Antibody IgG (03/28/2025 6:34 AM EDT) Hepatitis A Antibody IgG Negative Negative 03/28/2025 8:54 AM EDT [facility] Blood Venous blood specimen / Unknown Venipuncture / Unknown 03/28/2025 6:34 AM EDT 03/28/2025 7:09 AM EDT Marco Joiner MD LAB BLOOD ORDERABLES Final Resul t Performing Organization Address City/[facility]/ZIP Co de Phone Number [facility] [address] [place] [address] * Hepatitis C Antibody (03/28/2025 6:34 AM EDT) Hepatitis C Antibody Negative Negative 03/28/2025 7:51 AM EDT [facility] Blood Venous blood specimen / Unknown Venipuncture / Unknown 03/28/2025 6:34 AM EDT 03/28/2025 7:08 AM EDT Marco Joiner MD LAB BLOOD ORDERABLES Final Resul t Performing Organization Address [facility] Co de Phone Number [facility] [address] [place] [address] * Nicotine Cotinine Metabolite (03/28/2025 6:34 AM EDT) NICOTINE <5 <5 ng/mL 04/01/2025 10:06 AM EDT [facility] Cotinine <5 <5 ng/mL 04/01/2025 10:06 AM EDT [facility] Blood Venous blood specimen / Unknown Venipuncture / Unknown 03/28/2025 6:34 AM EDT 03/28/2025 7:10 AM EDT Narrative [facility] - 04/01/2025 10:06 AM EDT Testing performed by LC-MS/MS at the [facility] Special Chemistry/Toxicology Laboratory. This test was developed and its performance characteristics determined by [facility]. This assay has not been cleared by the FDA. The laboratory is regulated under CLIA as qualified to perform high-complexity testing. This test is used for clinical purposes. Marco Joiner MD LAB BLOOD ORDERABLES Final Resul t Performing Organization Address City/[facility]/ZIP Co de Phone Number [facility] [address] [place] [address] * ABO/Rh (03/28/2025 6:34 AM EDT) ABO/Rh O Positive 03/28/2025 6:25 AM EDT [facility] Blood Venous blood specimen / Unknown Venipuncture / Unknown 03/28/2025 6:34 AM EDT 03/28/2025 7:10 AM EDT Marco Joiner MD LAB BLOOD BANK TEST ORDERABLES F inal Result Performing Organization Address [facility] Co de Phone Number BLOOD BANK [address] [place] [address], * Alcohol Urine (03/28/2025 6:34 AM EDT) Alcohol Urine Negative Negative 03/28/2025 3:29 PM EDT [facility] Urine Urine specimen obtained by clean catch procedure / Unknown Non-blood Collection / Unknown 03/28/2025 6:34 AM EDT 03/28/2025 7:11 AM EDT Narrative [facility] - 03/28/2025 3:29 PM EDT The correlation between urine and serum ethanol concentration is highly variable. Test performed by Gas Chromatography at the [facility] Special Chemistry Laboratory. This test was developed and its performance characteristics determined by [facility]. It has not been cleared or approved by the FDA.The laboratory is regulated under CLIA as qualified to perform high-complexity testing. This test is used for clinical purposes only. Marco Joiner MD LAB URINE ORDERABLES Final Resul t Performing Organization Address [facility] Co de Phone Number [facility] [address] [place] [address] * (ABNORMAL) Comprehensive Urine Drug Screening, Qualitative Assay, >= 27 Drug Classes (56:34 AM EDT) Acetaminophen Negative Negative 04/03/2025 3:00 PM EDT [facility] Alprazolam Negative Negative 04/03/2025 3:00 PM EDT [facility] Amantadine Negative Negative 04/03/2025 3:00 PM EDT [facility] Amitriptyline Negative Negative 04/03/2025 3:00 PM EDT [facility] Amphetamine Negative Negative 04/03/2025 3:00 PM EDT [facility] Atenolol Negative Negative 04/03/2025 3:00 PM EDT [facility] Benzoylecgonine Negative Negative 3:00 PM EDT [facility] Bisoprolol Negative Negative 04/03/2025 3:00 PM EDT [facility] Bupropion Negative Negative 04/03/2025 3:00 PM EDT [facility] Butalbital Negative Negative 04/03/2025 3:00 PM EDT [facility] Carbamazepine Negative Negative 04/03/2025 3:00 PM EDT [facility] Carisoprodol Negative Negative 04/03/2025 3:00 PM EDT [facility] Chlorpheniramine Negative Negative 04/03/20 3:00 PM EDT [facility] Citalopram Negative Negative 04/03/2025 3:00 PM EDT [facility] Clindamycin Negative Negative 04/03/2025 3:00 PM EDT [facility] Clonidine Negative Negative 04/03/2025 3:00 PM EDT [facility] Clopidogrel / Ticlopidine Negative Negative 04/03/2025 3:00 PM EDT [facility] Cocaethylene Negative Negative 04/03/2025 3:00 PM EDT [facility] Cocaine Negative Negative 04/03/2025 3:00 PM EDT [facility] Codeine Negative Negative 04/03/2025 3:00 PM EDT [facility] Cyclobenzaprine Negative Negative 3:00 PM EDT [facility] Desvenlafaxine Negative Negative 04/03/2025 3:00 PM EDT [facility] Dextromethorphan Negative Negative 04/03/20 3:00 PM EDT [facility] Diazepam Negative Negative 04/03/2025 3:00 PM EDT [facility] Diltiazem Negative Negative 04/03/2025 3:00 PM EDT [facility] Diphenhydramine Positive(A) Negative 04/03/20 3:00 PM EDT [facility] Doxepine Negative Negative 04/03/2025 3:00 PM EDT [facility] Doxylamine Positive(A) Negative 04/03/2025 3:00 PM EDT [facility] EDDP-Methadone metabolite Negative Negative 04/03/2025 3:00 PM EDT [facility] Fentanyl Negative Negative 04/03/2025 3:00 PM EDT [facility] Fluconazole Negative Negative 04/03/2025 3:00 PM EDT [facility] Fluoxetine Negative Negative 04/03/2025 3:00 PM EDT [facility] Guaifenesin Negative Negative 04/03/2025 3:00 PM EDT [facility] Haloperidol Negative Negative 04/03/2025 3:00 PM EDT [facility] Heroin/6-LEONIE Negative Negative 04/03/2025 3:00 PM EDT [facility] Hydrocodone Negative Negative 04/03/2025 3:00 PM EDT [facility] Hydroxyzine / Cetirizine metabolite Negative Negative 04/03/2025 3:00 PM EDT [facility] Ibuprofen Negative Negative 04/03/2025 3:00 PM EDT [facility] Imipramine Negative Negative 04/03/2025 3:00 PM EDT [facility] Ketamine Negative Negative 04/03/2025 3:00 PM EDT [facility] Labetolol Negative Negative 04/03/2025 3:00 PM EDT [facility] Lamotrigine Negative Negative 04/03/2025 3:00 PM EDT [facility] Levetiracetam Negative Negative 04/03/2025 3:00 PM EDT [facility] Lidocaine Negative Negative 04/03/2025 3:00 PM EDT [facility] MDA Negative Negative 04/03/2025 3:00 PM EDT [facility] MDMA Negative Negative 04/03/2025 3:00 PM EDT [facility] Memantine Negative Negative 04/03/2025 3:00 PM EDT [facility] Meperidine Negative Negative 04/03/2025 3:00 PM EDT [facility] Meprobamate Negative Negative 04/03/2025 3:00 PM EDT [facility] Metaxalone Negative Negative 04/03/2025 3:00 PM EDT [facility] Methamphetamine Negative Negative 3:00 PM EDT [facility] Methocarbamol Negative Negative 04/03/2025 3:00 PM EDT [facility] Methylecgonine Negative Negative 04/03/2025 3:00 PM EDT [facility] Metoclopramide Negative Negative 04/03/2025 3:00 PM EDT [facility] Metoprolol Negative Negative 04/03/2025 3:00 PM EDT [facility] Metronidazole Negative Negative 04/03/2025 3:00 PM EDT [facility] Midazolam Negative Negative 04/03/2025 3:00 PM EDT [facility] Midazolam Metabolite Negative Negative 04/03/2025 3:00 PM EDT [facility] Mirtazapine Negative Negative 04/03/2025 3:00 PM EDT [facility] Misc Test Result Negative Negative 04/03/20 3:00 PM EDT [facility] Naproxen Negative Negative 04/03/2025 3:00 PM EDT [facility] Nefazodone Negative Negative 04/03/2025 3:00 PM EDT [facility] Norfentanyl Negative Negative 04/03/2025 3:00 PM EDT [facility] Nortriptyline Negative Negative 04/03/2025 3:00 PM EDT [facility] Ordanstron Negative Negative 04/03/2025 3:00 PM EDT [facility] Oxcarbazepine Negative Negative 04/03/2025 3:00 PM EDT [facility] Oxycodone Negative Negative 04/03/2025 3:00 PM EDT [facility] Paroxethine Negative Negative 04/03/2025 3:00 PM EDT [facility] Phenobarbital Negative Negative 04/03/2025 3:00 PM EDT [facility] Phentermine Negative Negative 04/03/2025 3:00 PM EDT [facility] Phenytoin Negative Negative 04/03/2025 3:00 PM EDT [facility] Primidone Negative Negative 04/03/2025 3:00 PM EDT [facility] Promethazine Negative Negative 04/03/2025 3:00 PM EDT [facility] Propofol Negative Negative 04/03/2025 3:00 PM EDT [facility] Propranolol Negative Negative 04/03/2025 3:00 PM EDT [facility] Quetiapine Negative Negative 04/03/2025 3:00 PM EDT [facility] Quinine Negative Negative 04/03/2025 3:00 PM EDT [facility] Rantidine Negative Negative 04/03/2025 3:00 PM EDT [facility] Sertraline Negative Negative 04/03/2025 3:00 PM EDT [facility] Spironolactone Negative Negative 04/03/2025 3:00 PM EDT [facility] Tizanidine Negative Negative 04/03/2025 3:00 PM EDT [facility] Topiramate Negative Negative 04/03/2025 3:00 PM EDT [facility] Tramadol Negative Negative 04/03/2025 3:00 PM EDT [facility] Trazadone/ Trazadone metabolite Negative Negative 04/03/2025 3:00 PM EDT [facility] Trimethoprim Negative Negative 04/03/2025 3:00 PM EDT [facility] Valproic Acid Negative Negative 04/03/2025 3:00 PM EDT [facility] Venlafaxine Negative Negative 04/03/2025 3:00 PM EDT [facility] Verapamil Negative Negative 04/03/2025 3:00 PM EDT [facility] Zolpidem Negative Negative 04/03/2025 3:00 PM EDT [facility] Xylazine Negative Negative 04/03/2025 3:00 PM EDT [facility] Urine Urine specimen obtained by clean catch procedure / Unknown Non-blood Collection / Unknown 03/28/2025 6:34 AM EDT 03/28/2025 7:11 AM EDT us Marco Joiner MD LAB URINE ORDERABLES Final Resul t [facility] [address] [place] [address] * Hepatitis B Surface Antigen (03/28/2025 6:34 AM EDT) Hepatitis B Surf Antigen Negative Negative 03/28/2025 8:54 AM EDT [facility] Blood Venous blood specimen / Unknown Venipuncture / Unknown 03/28/2025 6:34 AM EDT 03/28/2025 7:09 AM EDT Marco Joiner MD LAB BLOOD ORDERABLES Final Resul t Performing Organization Address [facility] Co de Phone Number [facility] [address] [place] [address] * (ABNORMAL) Protime-INR (03/28/2025 6:34 AM EDT) Prothrombin Time 18.5(H) 12.0 - 14.3 sec LAB COAGULATION METHOD 03/28/2025 8:13 AM EDT [facility] INR 1.5(H) 0.9 - 1.1 LAB COAGULATION METHOD 03/28/2025 8:13 AM EDT [facility] Blood Venous blood specimen / Unknown Venipuncture / Unknown 03/28/2025 6:34 AM EDT 03/28/2025 7:09 AM EDT Narrative [facility] - 03/28/2025 8:13 AM EDT OPTIMAL INR RANGES FOR PATIENT ON ORAL ANTICOAGULANT THERAPY Prevention of venous thromboembolism INR 2.0 to 3.0 In patients with heart disease: Atrial fibrillation INR 2.0 to 3.0 Valvular heart disease INR 2.0 to 3.0 Tissue heart valves INR 2.0 to 3.0 Mechanical prosthetic valves INR 2.5 to 3.5 Prevention of recurrent NE INR 2.5 to 3.5 us Marco Joiner MD LAB BLOOD ORDERABLES Final Resul t Performing Organization Address City/[facility]/ZIP Co de Phone Number [facility] [address] [place] [address] * (ABNORMAL) Hemogram (CBC) (03/28/2025 6:34 AM EDT) WBC Count 6.65 3.70 - 10.30 10*3/uL LAB HEMATOLOGY METHOD 03/28/2025 8:38 AM EDT [facility] RBC Count 4.69 4.60 - 6.10 10*6/uL LAB HEMATOLOGY METHOD 03/28/2025 8:38 AM EDT [facility] HGB 15.2 13.7 - 17.5 g/dL LAB HEMATOLOGY METHOD 03/28/2025 8:38 AM EDT [facility] HCT 45.2 40.0 - 51.0 % LAB HEMATOLOGY METHOD 03/28/2025 8:38 AM EDT [facility] Platelet Count 92(L) 155 - 369 10*3/uL LAB HEMATOLOGY METHOD 03/28/2025 8:38 AM EDT [facility] MCV 96 79 - 98 fL LAB HEMATOLOGY METHOD 03/28/2025 8:38 AM EDT [facility] MCH 32.4(H) 26.0 - 32.0 pg LAB HEMATOLOGY METHOD 03/28/2025 8:38 AM EDT [facility] MCHC 33.6 30.7 - 35.5 g/dL LAB HEMATOLOGY METHOD 03/28/2025 8:38 AM EDT [facility] RDW 15.3(H) 11.5 - 14.5 % LAB HEMATOLOGY METHOD 03/28/2025 8:38 AM EDT [facility] MPV 11.2 8.8 - 12.5 fL LAB HEMATOLOGY METHOD 03/28/2025 8:38 AM EDT [facility] nRBC 0.0 <=0.0 per 100 WBCs LAB HEMATOLOGY METHOD 03/28/2025 8:38 AM EDT [facility] Blood Venous blood specimen / Unknown Venipuncture / Unknown 03/28/2025 6:34 AM EDT 03/28/2025 7:11 AM EDT us Marco Joiner MD LAB BLOOD ORDERABLES Final Resul t [facility] [address] [place] [address] * (ABNORMAL) Comprehensive metabolic panel (03/28/2025 6:34 AM EDT) Glucose, Plasma 131(H) 74 - 99 mg/dL 03/28/2025 7:44 AM EDT [facility] BUN, Plasma 10 8 - 23 mg/dL 03/28/2025 7:44 AM EDT [facility] Creatinine, Plasma 0.82 0.70 - 1.20 mg/dL 03/28/2025 7:44 AM EDT [facility] BUN/Creatinine Ratio 12 03/28/2025 7:44 AM EDT [facility] Sodium, Plasma 139 136 - 145 mmol/L 03/28/2025 7:44 AM EDT [facility] Potassium, Plasma 3.6 3.6 - 4.9 mmol/L 03/28/2025 7:44 AM EDT [facility] Chloride, Plasma 105 97 - 107 mmol/L 03/28/2025 7:44 AM EDT [facility] CO2, Plasma 24 22 - 29 mmol/L 03/28/2025 7:44 AM EDT [facility] Anion Gap 10 6 - 16 mmol/L 03/28/2025 7:44 AM EDT [facility] Total Calcium, Plasma 8.5(L) 8.9 - 10.2 mg/dL 03/28/2025 7:44 AM EDT [facility] Total Protein 5.9(L) 6.3 - 7.9 g/dL 03/28/2025 7:44 AM EDT [facility] Albumin, Plasma 3.4(L) 3.5 - 5.2 g/dL 03/28/2025 7:44 AM EDT [facility] AST, Plasma 96(H) 10 - 50 U/L 03/28/2025 7:44 AM EDT [facility] Comment:Hemolyzed, result ma y be falsely increased. ALT, Plasma 53(H) 10 - 50 U/L 03/28/2025 7:44 AM EDT [facility] Alkaline Phosphatase, Plasma 170(H) 40 - 115 U/L 03/28/2025 7:44 AM EDT [facility] Total Bilirubin, Plasma 3.7(H) 0.2 - 1.1 mg/dL 03/28/2025 7:44 AM EDT [facility] eGFRcr 95.1 mL/min/1.7 3m*2 03/28/2025 7:44 AM EDT [facility] Comment:Reported eGFRcr in m L/min/1.73m2 is based the CKD-EPI 2020 equation that does not use a race coefficient. Blood Venous blood specimen / Unknown Venipuncture / Unknown 03/28/2025 6:34 AM EDT 03/28/2025 7:09 AM EDT us Marco Joiner MD LAB BLOOD ORDERABLES Final Resul t [facility] [address] [place] [address] * Surgical Pathology Consult (03/26/2025 1:30 PM EDT) Case Report Sugical Pathology Consult Case: [id number] Authorizing Provider: Dyllan Paul MD Collected: 03/26/2025 1330 Ordering Location: [facility] Received: 03/26/2025 1330 Pathologist: Vandana Levine MD Specimen: Prostate, [id number] 03/27/2025 10:44 AM EDT [facility] Final Diagnosis PROSTATE, NEEDLE CORE BIOPSIES [...] CARLEY PATTERN 4). 03/27/2025 10:44 AM EDT [facility] at 1044 EDT Comment Perineural invasion is identified. Cribriform pattern 4 is also seen. 03/27/2025 10:44 AM EDT [facility] Clinical Information R97.20 - Elevated prostate specific antigen (PSA) [ICD-10-CM] 03/27/2025 10:44 AM EDT [facility] Gross Description A. [id number] Received along with a corresponding pathology report from [facility] are 9 slides labeled outside case: [id number] collected on 01/22/2025. 03/27/2025 10:44 AM EDT [facility] Tissue Prostate / Unknown 1:30 PM EDT 03/26/2025 1:30 PM EDT Dyllan Paul MD LAB PATHOLOGY ORDERABLES Francia lezama Result [facility] [address] [place] [address] * PET OUTSIDE IMAGES (02/13/2025 12:41 PM EDT) Only the most recent of2 resultswithin the time period is included. 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 Insurance Member Subscriber Plan / Payer (Ef fective 2021-Present) Name:SCOUT LOWE Relation to Subscriber:Spouse Name:JAVON LOWE Date of :1962 (Home) Address: [address] [place] [address] Payer ID:[id number] (NAIC) Type:Not on file Address: [address] [place] [phone] MEDICARE MEDICARE Care Teams Matting Press Tender Relationship Specialty Start Date End Date Murray Prajapati MD [address] [place] [id number] PCP - General 03/06/23 Jaja Camara APRN [address] [place] [facility] [address] [place] [id number] Referring Physician Gastroenterology 03/06/23 Dyllan Paul MD [id number] [place] [address] Surgeon Urology 04/29/25
--- OUTSIDE RECORDS SUMMARY | 2025-05-16 10:13 | XMS_ITS ---
Author Organization [facility] Address [address] [place] [address] Care Team Providers Care Bleach Packer Name Role Phone Murray Prajapati MD Primary Care Provider Jaja Camara PRODUCT SUPPORT MANAGER Unavailable [phone] Dyllan Paul MD Unavailable [phone] Transplant Episode Liver Candidate [facility] ([place], [place]) - [place] Referred on 03/06/2023 Marked as Deferred on 05/20/2023 Liver CoordinatorAry Shepard RN Fax: N/A Email: N/A Scores Score Value Updated Expires Exceptions/Sachi sons CPRA Not available MELD (Calc) 16 03/28/2025 Care Team Name Role Phone Fax Email Ary Shepard RN Liver Coordinator [phone] N/A N/A Murray Prajapati MD Primary Care Provider [phone] N/A Jaja Camara APRN Referring Physician [phone] N/A Janis Rice Conveyor Attendant [phone] N/A N/A Marco Joiner MD Surgeon [phone] N/A Events Pre-Transplant Referred: 03/06/2023 Committee: 04/24/2023
== END 2025-05-15 23:59 | disposition home or self-care (01) ==
LOC: LAB.DROPOF 05-16 10:03
PROVIDERS: PCP Internal Medicine; Visit Provider Internal Medicine
DX: K74.60 Unspecified cirrhosis of liver (principal); I10 Essential (primary) hypertension; R60.9 Edema, unspecified
CPT/HCPCS: 80053

== ENCOUNTER 2025-07-25 16:01 | Emergency (ER) | payer BC, SELFPAY ==
--- OUTSIDE RECORDS SUMMARY | 2025-06-06 09:30 | XMS_ITS | Encounter Summary ---
Author Organization [facility] Address [address] [place] [place] [address] Care Team Providers Care Manager Night Name Role Phone Murray Prajapati MD Primary Care Provider [phone] Jaja Camara SKEIN YARN DYER Unavailable [phone] Dyllan Paul MD Unavailable [phone] Encounter Details Date Type Department Care Team (Late st Contact Info) Description 06/06/2025 9:30 AM EDT Pre-Admission Testing [facility] Pre-op Clinic [address], 1st [place] [address] Anesthesia Record Procedure Summary Procedure Name Responsible Anesthesiologist Anesthesia Start Time Anesthesia Stop Time PROSTATECTOMY, RADICAL, ROBOT-ASSISTED (Abdomen) Afshin Reece MD 06/12/25 1442 06/12/258 Events Date Time Event Comment 06/12/2025 0636 1441 In Room 1442 An Start The patient was reevaluated immediately before sedation and remains eligible for anesthesia plan. 1442 An Start Data 1447 An Induction The patient was reevaluated immediately before moderate or deep sedation use and before anesthesia induction. 1450 An Intubation 1504 Anesthesia Ready 1520 Proc Start 1624 Attending Handoff 1854 IV Placed 1900 Allan Surgeon ace sing blood pressure cuff 1908 Allan 2025 Proc Fin 2058 Out of Room 2107 an stop data 2122 Allan Patient experie nced acute hypoxia after moving from lithotomy to supine with SpO2 down to 77 and difficulty obtaining adequate oxygenation despite 100% FiO2 and hand ventilation. Bilateral lung sliding noted on U/S. Taken to PACU intubated and placed on Ventilator. SpO2 improved significantly in PACU with SpO2 96% on 100% FiO2. ABG with pO2 81. CCM consulted by primary team. 2127 Handoff to Receiving I compl eted my handoff to the receiving clinician during which we: 1. Identified the patient 2. Identified the responsible provider 3. Reviewed the pertinent medical history 4. Discussed the surgical course 5. Reviewed intra-op anesthesia management and issues during anesthesia 6. Set expectations for post-procedure period 7. Allowed opportunity for questions and acknowledgement of understanding. 2127 An Stop Meds * Agents No agents on file. * Blood No blood administrations on file. Lines, Drains, and Airways Type Details Placement Removal Wound 06/12/25; 1530; N; Y es; Surgical; Laparoscopic (4 trocar entry sites for laparoscopic prostatectomy + one midline incision, 06/12/2025, with Dr. Paul); Abdomen; Lower, Left, Right, Upper 06/12/25 1530 by Estefany Singh RN Wound 06/12/25; 192; N; Y es; Surgical; Open Surg; Abdomen; Mid 06/12/251928 by Idalia Leonardo Peripheral IV Placement Date: 06/12/25; Placement Time: 1315; Catheter Size: 18 G; Orientation: Posterior, Right; Location: Hand; Site Prep: Chlorhexidine ; Local Anesth: [place]; Technique: Anatomical landmarks; Inserted by: Belinda Ramirez; Patient Tolerance: Tolerated well; Removal Date: 06/13/25; Removal Time: 0330; Removal Reason: Leaking 06/12/25 1315 by Carol Proctor RN 06/13/25 0330 by Jimi Flanagan RN ETT Placement Date: 06/12/25; Placement Time: 1450 (created via procedure documentation); Mask Ventilation: 2; Technique: Direct laryngoscopy; Type: ETT - single; Single Lumen Tube Size: 8 mm; Cuffed: Yes; Laryngoscope: Wilfrid; Blade Size: 3; Location: Oral; Grade View: Grade IIb; Insertion Attempts: 1; Placement Verification: Auscultation, Capnometry; Airway Comments: Bilateral Breath Sounds, (+) ETCO2, Atraumatic, No change to dentition. ; Placed by: Resident ; Removal Date: 06/17/25; Removal Time: 1338 06/12/25 1450 by Mumtaz Pat DO 06/17/25 1338 by Christine Quiroz Peripheral IV Placement Date: 06/12/25; Placement Time: 151 (created via procedure documentation); Catheter Size: 18 G; Orientation: Left; Location: Arm; Technique: Anatomical landmarks; Removal Date: 06/21/25; Removal Time: 0800; Removal Reason: Per patient/family request 06/12/25 1518 by Mumtaz Pat DO 06/21/25 0800 by Samia Santos RN Urethral Catheter Placement Date: 06/12/25; Placement Time: 151; Inserted by: Gregory Galicia MD; Type: Double-lumen, Non-latex; Size: 18 Fr.; Urine Returned: Yes; Removal Date: 06/12/25; Removal Time: 18306/12/25 1518 by Estefany Singh RN 06/12/25 1830 by Estefany Singh RN Urethral Catheter Placement Date: 06/12/25; Placement Time: 183; Inserted by: ST Denis, under Dr. Paul's supervision; Type: Double-lumen, Non-latex; Size: 20 Fr.; Urine Returned: Yes; Removal Date: 06/24/25; Removal Time: 1030; Removal Reason: Other (Comment) (removed by urology) 06/12/25 183 by sEtefany Singh RN 06/24/25 1030 by Jeff Gómez RN Peripheral IV Placement Date: 06/12/25; Placement Time: 1853 (created via procedure documentation); Catheter Size: 16 G; Orientation: Right; Location: External Jugular; Technique: Ultrasound guidance; Inserted by: Dyllan Wong DO; Insertion Attempts: 1; Removal Date: 06/13/25; Removal Time: 1200; Removal Reason: Occluded 06/12/25 185 by Dyllan Wong DO 06/13/25 1200 by Karen Ortiz RN Closed/Suction Drain 06/12/25; 185; Yes ; 1; RUQ; Bulb; 10 Fr.; Other (Comment) (removed per provider) 06/12/25 1855 by Idalia Leonardo 06/22/25 1000 by Joe Rosa RN Arterial Line Placement Date: 06/12/25; Placement Time: 2124 (created via procedure documentation); Size: 20 G; Orientation: Right; Location: Radial; Inserted by: Resident; Securement: Taped; Patient Tolerance: Tolerated well; Removal Date: 06/18/25; Removal Time: 754; Removal Reason: Per order 06/12/252124 by Dyllan Wong, DO 06/18/25754 by Lesia Botoh RN documented in this encounter Social History Tobacco Use Types Packs/Day Years Used Date Smoking Tobacco: Never Passive Smoke Exposure: Never Smokeless Tobacco: Never Alcohol Use Standard Drinks/Week Comments Yes 0 (1 standard drink = 0.6 oz pur e alcohol) Currently social use. PHQ-2 Answer Date Recorded Patient Health Questionnaire-2 [...] Sign Reading Time Taken Comments Blood Pressure - - Pulse - - Temperature - - Respiratory Rate - - Oxygen Saturation - - Inhaled Oxygen Concentration - - Weight 109 kg (240 lb) 06/06/2025 8:29 AM EDT Height 175.3 cm (5' 9 ) 06/06/2025 8:29 AM EDT Body Mass Index 35.44 06/06/2025 8:29 AM EDT documented in this encounter Miscellaneous Notes * PAT Evaluation Note - Michelle Feliciano APRN - 06/06/2025 9:30 AM EDT Images from the original note were not included. HPI Eber Lowe is a 70 y.o. male who presents with Pre-op Diagnosis * Prostate CA (CMS/HCC) [C61] now scheduled for PROSTATECTOMY, RADICAL, ROBOT- ASSISTED (N/A)with Dyllan Paul MD on 06/12/2025 at [facility]. Past Medical History[1] Family History[2] Social History[3] SURGICAL HISTORY: Surgical History[4] Allergies[5] MEDICATIONS: Current Medications[6] ROS Anesthesia: Date of last anesthetic: ~ 2009. history of previous anesthesia. Does not have a history of anesthetic complications and obstructivesleep apnea. Cardiovascular: hyperlipidemia. Does not have angina, CAD, CHF, dysrhythmias, pacemaker or past [place]. hypertension: Exercise tolerance is 2 flights of stairs. Cardio additional comments: Denies any active current cardiac complaints.. Respiratory: Does not have home oxygen. no asthma: no COPD: Has not had an upper respiratory infection in last 30 days. Has not had pneumonia in the last 30 days or COVID in the last 30 days. HEENT: Does not have loose teeth. Neurological: no seizures: Did not have a cerebrovascular accident. Musculoskeletal: Does not have cervical spine limited mobility. [facility] additional comments: Recent skin cancer excised from leg. Gastrointestinal: GERD (rare.):cirrhosis (stable per pt.). Does not have ascites. obese. Genitourinary: prostate cancer and renal calculi. Does not have renal disease. Hematological/Lymphatic: History of no DVT. History of no pulmonary embolism. Not in a hypercoagulable state. no history of chemotherapy no history of radiation MRSA (~ 2012.). Does not have tuberculosis. Endocrine/Metabolic: does not have diabetes mellitus. Does not have thyroid disorder. Lab Results Component Value Date WBC 6.65 03/28/2025 HGB 15.2 03/28/2025 HCT 45.2 03/28/2025 MCV 96 03/28/2025 PLT 92 (L) 03/28/2025 Lab Results Component Value Date GLUCOSE 131 (H) 03/28/2025 BUN 10 03/28/2025 CREATININE 0.82 03/28/2025 BCR 12 03/28/2025 NA 139 03/28/2025 K 3.6 03/28/2025 CL 105 03/28/2025 CO2 24 03/28/2025 ALBUMIN 3.4 (L) 03/28/2025 ALKPHOS 170 (H) 03/28/2025 BILITOT 3.7 (H) 03/28/2025 No results found for: HGBA1C Lab Results Component Value Date INR 1.5 (H) 03/28/2025 INR 1.4 (H) 04/11/2023 Visit Vitals Ht 1.753 m (5' 9 ) Wt 109 kg (240 lb) BMI 35.44 kg/m?? Smoking Status Never BSA 2.3 m?? Physical Exam Anesthesia Plan ASA 3 Anesthesia technique(s) discussed with the patient/family: general Comment: AZEEM phone screen. Michelle Feliciano APRN [1] Past Medical History: Diagnosis Date Cancer (CMS/HCC) january 26, 2025 Cirrhosis (CMS/HCC) 2021 History of methicillin resistant Staphylococcus aureus 2011 Hyperlipidemia Hypertension Kidney stone various Substance abuse alcohol [2] Family History Problem Relation Name Age of Onset Heart disease Mother Anesthesia problems Neg Hx Malig Hyperthermia Neg Hx [3] Social History Tobacco Use Smoking status: Never Passive exposure: Never Smokeless tobacco: Never Vaping Use Vaping status: Never Used Substance Use Topics Alcohol use: Yes Comment: Currently social use. Drug use: Never [4] Past Surgical History: Procedure Laterality Date CHOLECYSTECTOMY 2009 lap KNEE ARTHROSCOPY W/ MENISCAL REPAIR OTHER SURGICAL HISTORY Lipoma resection UMBILICAL HERNIA REPAIR [5] No Known Allergies [6] Current Outpatient Medications: atorvastatin, Take 1 tablet by mouth daily. carvedilol, Take 1 tablet by mouth 2 times a day. clobetasol, as needed. DIPHENHYDRAMINE HCL, SLEEP, PO, Take 16 mg by mouth at night if needed (sleep). furosemide, Take 1 tablet by mouth daily. yuujwimzihxf-apnx-btigdhzr-folic acid, Chew 1 tablet daily. potassium chloride CR, Take 1 tablet by mouth daily. Do not crush, chew, or split. triamcinolone, Apply 1 Application topically as needed. Vitamin E, Take 1,000 Units by mouth 1 (one) time each day. ketoconazole, as needed. ketoconazole, Melatonin, Take 10 mg by mouth at night if needed for sleep. (Patient not taking: Reported on 04/29/2025) psyllium, Take 1 packet by mouth daily. * Preprocedure Instructions - Michelle Feliciano APRN - 06/06/2025 9:30 AM EDT Home Medication Instructions Current Medications Medication Instructions atorvastatin (Lipitor) 10 MG tablet Hold day of surgery carvedilol (Coreg) 3.125 MG tablet Take morning of surgery clobetasol (Temovate) 0.05 % external solution Hold day of surgery DIPHENHYDRAMINE HCL, SLEEP, PO Take as needed night before surgery furosemide (Lasix) 40 MG tablet Hold day of surgery kvuzaufmxwks-zlif-dlklpmtp-folic acid (Centrum) chewable tablet Hold day of surgery potassium chloride CR (Klor-Con) 10 MEQ ER tablet Hold day of surgery triamcinolone (Kenalog) 0.1 % ointment Hold day of surgery Vitamin E 450 MG (1000 UT) capsule Hold 5 days before surgery General Preoperative Instructions You will be called the business day before surgery with your arrival time No food after midnight the night before surgery. You can drink clear liquids up to 2 hours prior to arrival unless instructed by your surgeon otherwise. Please do not try to get all your hydration in 2 hours prior to arrival. Start the day before surgery drinking more than you usually would. After midnight, you can have clear liquids only (water,apple juice, Gatorade) up to 2 hours prior to arrival. No coffee or tea. No alcohol or smoking prior to surgery Arrive on time to avoid delays Parking/Registration procedure explained You MUST have a responsible adult available for transport to and from hospital Visitation policy for the day of surgery reviewed Bring insurance card, photo ID, along with power of cell stripper final, guardianship or advanced directives if applicable Do not bring money, jewelry or other valuables Hibiclens bathing instructions reviewed if applicable Notify surgeon of fever, illness, any changes or if you decide not to have surgery Diabetes Instructions (If applicable) Take diabetes medication as instructed You may have up to 4 ounces of apple juice 2 hours prior to arrival for surgery for low glucose * [facility] - Michelle Feliciano APRN - 06/06/2025 8:42 AM EDT Images from the original note were not included. 40 Bathing Before Surgery Basic instructions ? You need to bathe with Hibiclens (chlorhexidine) before surgery. This will clean your skin and remove germs that live on the skin. This reduces your risk of infection after surgery. ? You can buy Hibiclens at most drug stores. ? You need to bathe with Hibiclens twice before surgery - once the night before surgery and again the morning of surgery. ? Do not use Hibiclens on your hair or anywhere above the neck. ? You should not shave with a razor or use hair removal creams near the surgery site for 4 days before surgery. Night before surgery If you take a shower or tub bath: 1. Wash with regular soap and water and rinse off. 2. You may wash your hair the night before or the morning of surgery. Shampoo and rinse as usual. 3. Pour 1 ounce (2 tablespoons) of Hibiclens on a clean washcloth. Wash the area where you will be having your surgery first. Then wash the rest of the body, leaving the groin area until last. 4. Allow the Hibiclens to stay on the skin for 5 minutes, then rinse off completely. 5. Use a clean towel to dry off. 6. Put on clean clothing and be sure to have clean sheets on your bed. ? If you take a bed bath: 1. Wash with regular soap and water and rinse off. 2. Place 1 ounce (2 tablespoons) of Hibiclens solution in a wash basin of clean water. Wash the area where you will be having surgery first. 3. Then wash the rest of the body. Leave the groin area until last. 4. Allow the Hibiclens to stay on the skin for 5 minutes. Then rinse off completely. 5. Use a clean towel to dry off. 6. Put on clean clothing. Be sure to have clean sheets on your bed. Morning of surgery ? Repeat the above steps. You are now ready for surgery with the cleanest possible skin! If you develop a skin problem between now and your surgery, please tell your doctor as soon as possible! * [facility] - Michelle Feliciano APRN - 06/06/2025 8:42 AM EDT Images from the original note were not included. 489 Map to [facility] Facilities Directions Easy directions to and from [address] (from [address]) Directions from [address]75/[address] to the [facility] Parking Garage: ? From [address], turn right off the exit ramp onto [address] ([place] [address] [address]) toward [place]. ? In 4.1 miles, turn left onto [address] (at the [employer] gas station). ? In a half-mile, turn right onto [address]. ? In .3 miles, turn right onto [address] (just past the [employer] gas station). Garage entrance is on the left. ? Important: This garage address will change to [address] [place] [address] on May 20, 2025. Directions from HealthCare Parking Garage to I-75/I-64: ? Turn left out of the garage onto [address]. ? Turn left onto [address]. ? In .3 miles, turn left down [address] ? In a half-mile, turn right onto [address] (at the [employer] gas station). ? In 4.1 miles, merge onto [address] /[address] (near the [facility] by [employer]isen[employer]). Parking Any patients or visitors of [facility] can park in the following areas: ? [facility] Parking Garage (main garage): [address] (Levels A-F) ? [facility] Garage: [address] (Levels 1-6) ? [facility] Cancer lot: Located off [email or web address] (limited parking for [facility] outpatients only). Upon Your Arrival ? Patients and visitors going to Pav[facility] A, H, and [facility] may walk across the pedway, located at Level C of the main parking garage ([address] or take the free shuttle from Level A. Golf carts are available on the pedway. ? Patients and visitors going to all other hospital pavilions are encouraged to take a free shuttleat Level A of the main garage. ? Emergency Department (ED) patients in need of immediate treatment may be dropped off at the ED entrance at the 15-minute dropoff area. Vehicles in this lot must be moved to the main hospital garage after 15 minutes. The ED may also be accessed via the pedway off [facility] garage on Level C. If you need a shuttle to the ED, one can be called for you at Level A of the main garage or contact any of the information desks, . Additional Information For additional information, please visit our information desks located throughout [facility]. Information desks have additional maps and resources. Information desks are located at the main entrances of: [facility] (first floor and ground floor), [facility], [facility], [facility] CC, [facility] WH, [facility] (first and third floor), and [facility]. Informationdesk number: [phone]. Important Addresses [address] [facility] ? [facility] entrance ? Pav[facility] A ? Pavilion G ([facility]) ? Emergency Department [address] ? [facility] H ? [facility] CC ([facility]) ? [facility] ([facility]) ? [facility] [address] [facility] ? [facility] [address] [facility] ? [facility] ? [facility] ? [facility] * [facility] - Michelle Feliciano APRN - 06/06/2025 8:42 AM EDT Images from the original note were not included. 1072 Patient Surgery Guide The doctors and staff of Surgical Services would like to welcome you, your family, and friends to [facility]. We offer access to more than 1,500 doctors from many specialty areas. Our goal is to provide high-quality, patient- centered care throughout your experience. We have a team approach tosurgery, and you and your family are an important part of our team. Surgeons, surgical nurses, anesthesiologists, dietitians, social workers, pharmacists, and others will work with you to decide the best plan of care for you. We understand surgery is a stressful time. This information will help you be more comfortable with [facility] and the surgical process. This information provides an overview answering many of yourquestions. But if you have further questions, please ask your doctor or nurse. Preoperative Anesthesia Clinic Your doctor may ask you to go to the Preoperative Anesthesia Clinic before your surgery. This visitallows us to evaluate your overall health and reduce the chance of delays or cancellation on the day of surgery. Please bring a complete list of the medicines your currently take. Bring any recent test reports you may have, including blood work, EKG, X-rays. Bring the results of any recent heart evaluation, including doctor?s notes and test reports. If you are not scheduled for a Preoperative Anesthesia Clinic visit, a nurse will call you to go over your health history and give you information about your surgery. It is very important you speak to a nurse before your surgery. The Preoperative Anesthesia Clinic is located on the first floor of the [facility] near the Pharmacy and main clinic entrance. We are open Monday-Monday from 8 a.m. to 4:30 p.m. A clinic telemarketing sales representative can be reached at [phone]. Parking is available in the [facility] garage on [facility] or in the [facility] garage located at [address] [place] [address], directly across [facility] from [facility]. The day before surgery You will receive a phone call telling you what time you need to arrive at the hospital for surgery.If you miss the call, please call one of the following numbers (depending on where your surgery is scheduled): ? [facility]: [phone] or [phone] ? [facility] Surgery: [phone] or [phone] The day of surgery ? Arrive on time to avoid delays or cancellation. ? Park in the [facility] parking garage located at [address] [place] [address]. It is directly across [facility] from the [facility]. ? If you are scheduled for surgery at [facility], take the hospital garage elevator to Level C, then cross the concourse bridge to the Surgery Waiting Room to register for your surgery. [facility] is located down the first hallway to the right at the end of the concourse bridge. If you need help crossing the concourse, you may car pick up driver the patient golf cart shuttle directlyto the right of the elevators on Level C. ? If you are scheduled for surgery at the [facility], take the garage elevator to Level A and catch the free shuttle to the hospital. (Be careful not to take the [facility] shuttle - there is an ambassador there who can help you.) Exit the shuttle at the first shuttle stop, then proceed to the registration desk to the right of the entrance. ? Registration staff will take your insurance information and confirm your name, birthday, address and other information. When you arrive After you register, we will take you to the preoperative area. Here the nurses will get you ready for surgery. Visitors are limited in the preoperative area. Nurses will: ? Allow you to change into a hospital gown. ? Check your arm band for your name and birthday. Your arm band will be checked many times throughout your stay at [facility] to ensure your safety. ? Go over your health history. ? Review your medicines and allergies. ? Check your temperature, blood pressure, heart rate, height and weight. ? Start an IV. ? Tell you what to expect during your stay at the hospital. During surgery Your family and friends will be directed to the Surgery Waiting Room. There they will receive regular updates during your surgery. Your doctor will talk to them after your surgery. A fingerprint clerk is available in the waiting room to help family and visitors. Space is limited, so please limit the number of people who come with you for your surgery. After surgery We will take you to a special area called the Post-Anesthesia Care Unit, or ?PACU.? There nurses will take care of you as you recover from surgery. Most patients will stay in the PACU for about 1-2 hours. Some people might need to stay longer. During this time the doctors and nurses will: ? Keep your pain level as low as possible. ? Help keep you from being sick to your stomach. ? Make sure you are warm and comfortable. ? Update your family on how you are doing. The anesthesia doctor will decide when you can go home or to your room. If you are going home after surgery: A nurse will give you and your family instructions on how to care for yourself when you go home. You will also get written instructions. This information will tell you how to schedule a follow-up appointment if an appointment is not scheduled before you leave, and how to contact your surgeon. If you are staying in the hospital after surgery: You will stay in the PACU until you are assigned a room. Your family and friends may visit you once you get to your hospital room. Parents of children or caregivers of special needs patients may remain in the preoperative area forthe entire time. They will be allowed in the PACU as soon as possible after the operation. At home ? Plan to go straight home to rest when you leave the hospital. If you wish, your medicines to takehome can be brought to your room before you leave. ? Follow your doctor?s instructions about rest, what to eat, what you can and cannot do, which medicines to take and when you may return to your normal activities. ? Be sure to keep your follow-up appointment with your doctor. You should be scheduled for a clinicappointment before you leave the hospital. Special reminders If you take insulin or other medicine for diabetes, the doctor will tell you what dose to take before your surgery. This will probably be different from your normal dose. Please bring your insulin with you on the day of surgery. If you are taking a blood thinner (for example: Coumadin, Plavix, aspirin, etc.), please tell your surgeon and anesthesia doctor. For all other medicines, you will receive instructions during your Anesthesia Preoperative Clinic visit or phone screening. Updates from the operating room It is important to protect your privacy when you are in the hospital. We also want to make it easy for your family to find out how you are doing while you are in surgery. To do this, on the day of your surgery a nurse will ask you to choose a password and share it with just one family member or friend. This password will then be put on your chart. When your family member calls to check on your condition, he or she must give the password to the nurse. The nurse will look on your chart to make sure it is the correct password and then give the person information on your condition. If you have any questions about this process, please ask. Our mission is to give you the very best care, including protecting your privacy. Feel better faster You should take walks if possible and do plenty of deep breathing. This will help you feel better more quickly after surgery. Walking and deep breathing help prevent blood clots and pneumonia and mayhelp ease any muscle soreness. Surgery do's ? Be sure to bring your current insurance card and a picture ID. ? Please bring copies of the following,if you have them: living will, health care surrogate, power of cell stripper final or guardianship papers. ? Bring a responsible adult to drive you home (or ride with you in a taxi) if you are having outpatient surgery. ? Plan to have someone stay with you at home for 24 hours after your surgery. ? Bring a list of your current medicines, including how much you take and when you take it. You mayalso just bring the medicines (in their original containers) with you. ? Tell your doctor about any allergies you have to medicines or food. ? Wear comfortable, loose-fitting clothes and low-heeled shoes. ? Bring a case to store glasses, contact lenses or dentures during surgery. Label the containers with your name. ? Pack an overnight bag that includes personal care items, such as a toothbrush and lotion, if you are staying in the hospital. ? Bring a parent or guardian if you are younger than 18. ? Bring a favorite toy or blanket for children having surgery. Surgery don'ts ? Starting at midnight, don?t eat anything on the day of your surgery. ? Don?t drink anything after midnight (unless told otherwise by your doctor or nurse) the day before your surgery. ? Don?t smoke, use smokeless tobacco, eat mints or chew gum after midnight the day of your surgery. ? Don?t drink alcohol 24 hours before your surgery. ? Don?t wear makeup, jewelry (including body piercing) or nail ukrainian. ? Don?t bring money or valuables to the hospital. ? Don?t drive a motor vehicle for 24 hours after your surgery. ? Don?t make important decisions or sign any legal documents for 24 hours after your surgery. ? Don?t drink alcohol or take medicine not prescribed by your doctor for 24 hours after your surgery. Need to cancel? If you decide not to have surgery or if you need to cancel because of a fever, a breathing or viralillness, or a family emergency, please call your surgeon?s office and the Preoperative Anesthesia Clinic at [phone] or [phone]. If it is the day of surgery, call the location where you are scheduled to have your surgery: [facility] at [phone] or [phone] or [facility] at [phone] or [phone]. For more information Visit [email or web address] or call [phone] or [phone]. HealthCare does not discriminate. HealthCare complies with applicable Federal civil rights laws and does not discriminate on the basis of race, color, national origin, age, disability, or sex. documented in this encounter Plan of Treatment Upcoming Encounters Date Type Department Care Team (Latest Contact Info) Description 08/14/2025 12:25 PM EDT Hospital Encounter [facility] S Operating Room [address] [place] [address] Dyllan Paul MD [address] [address] 08/14/2025 12:25 PM EDT - 08/14/2025 1:55 PM EDT Surgery [facility] Operating Room [address] [place] [address] Dyllan Paul MD [address] [address] URETEROSCOPY, WITH LASER LITHOTRIPSY [34414 (CPT )] 10/28/2025 8:00 AM EST Office Visit [facility] [address] [place] [id number] Pavan Aldrich MD [address] [facility] [address] [place] [address] Scheduled Procedures Name Priority Associated Diagnoses Date/Ti me URETEROSCOPY, WITH LASER LITHOTRIPSY Ureteral stone 08/14/2025 12:25 PM EDT documented as of this encounter Visit Diagnoses Not on filedocumented in this encounter Additional Health Concerns 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 Assessment Noted Time PHQ-9 Depression Total Score: 0 04/29/20 12:43 PM EDT A fall risk assessment has been complete d for the patient 04/29/2025 12:44 PM EDT A Body Mass Index follow-up plan has been documented for the patient 04/30/2025 3:18 PM EDT documented as of this encounter Care Teams Manager Night Relationship Specialty Start Date End Date Murray Prajapati MD [address] [facility] [address] [place] [id number] PCP - General 03/06/23 Jaja Camara APRN [address] [place] [facility] [address] [place] [id number] Referring Physician Gastroenterology 03/06/23 Dyllan Paul MD [address] [place] [address] Surgeon Urology 04/29/25 documented as of this encounter
--- OUTSIDE RECORDS SUMMARY | 2025-06-12 10:20 | XMS_ITS | Encounter Summary ---
Author Organization [facility] Address [address] [place] [address] Care Team Providers Care Felt Machine Mechanic Name Role Phone Murray Prajapati MD Primary Care Provider [phone] Jaja Camara SITE INSPECTOR Unavailable [phone] Dyllan Paul MD Unavailable [phone] Reason for Referral * Consultation (Routine) - Authorized Specialty Diagnoses / Procedures Referred By Silverio barone Referred To Contact Hepatology Diagnoses Alcoholic cirrhosis of liver with ascites (CMS/HCC) Hepatic cirrhosis, unspecified hepatic cirrhosis type, unspecified whether ascites present (CMS/HCC) Trice Herrera MD [address] [address] Phone: tel: fax: Referral ID Status Reason Start Date Expiration Date Visits Requested Visits Authorized [id number] Authorized Specialty Services Required 06/25/2025 12/25/2026 1 1 * Imaging (Routine) - Closed Specialty Diagnoses / Procedures Referred By Silverio barone Referred To Contact Radiology Diagnoses Renal calculi Procedures CT Urogram Trice Herrera MD [address] [address] Phone: tel: fax: Referral ID Status Reason Start Date Expiration Date Visits Re quested Visits Authorized [id number] Closed 06/25/2025 12/25/2026 1 1 * Consultation (Routine) - Authorized Specialty Diagnoses / Procedures Referred By Silverio t Referred To Contact Hepatology Diagnoses Hepatic cirrhosis, unspecified hepatic cirrhosis type, unspecified whether ascites present (CMS/HCC) Trice Herrera MD [address] [address] Phone: tel: fax: Referral ID Status Reason Start Date Expiration Date Visits Requested Visits Authorized [id number] Authorized Specialty Services Required 06/25/2025 12/25/2026 1 1 * Consultation (Routine) - Authorized Specialty Diagnoses / Procedures Referred By Silverio t Referred To Contact Internal Medicine Diagnoses Alcoholic cirrhosis of liver with ascites (CMS/HCC) Nir Aguilar MD [address] [place] [phone] Phone: tel: fax: Referral ID Status Reason Start Date Expiration Date Visits Requested Visits Authorized [id number] Authorized Specialty Services Required 06/25/2025 12/25/2026 1 1 Scheduling Instructions Establish care with PCP, Patient with history of cirrhosis and prostate cancer * Consultation (Routine) - Authorized Specialty Diagnoses / Procedures [facility] Referred To Contact Occupational Therapy Diagnoses H/O prostatectomy Trice Herrera MD [address] [address] Phone: tel: fax: Referral ID Status Reason Start Date Expiration Date Visits Requested Visits Authorized [id number] Authorized Consult and Treat 06/25/2025 12/25/2026 1 1 * Consultation (Routine) - Authorized Specialty Diagnoses / Procedures Referred By [facility] t Referred To Contact Physical Therapy Diagnoses H/O prostatectomy Trice Herrera MD [address] [address] Phone: tel: fax: Referral ID Status Reason Start Date Expiration Date Visits Requested Visits Authorized [id number] Authorized Consult and Treat 06/25/2025 12/25/2026 1 1 * Home Health (Routine) - Authorized Specialty Diagnoses / Procedures Referred By Silverio barone Referred To Contact Home Health Services Diagnoses Prostate CA (CMS/HCC) Dyllan Paul MD [address] [address] Phone: tel: fax: Referral ID Status Reason Start Date Expiration Date Visits Requested Visits Authorized [id number] Authorized Specialty Services Required 06/23/2025 12/23/2026 999 999 Reason for Visit * Auth/Cert (Routine) Specialty Diagnoses / Procedures Referred By Silverio barone Referred To Contact Diagnoses Prostate CA (CMS/HCC) PROSTATE CANCER Procedures CT LAP,PROSTATECTOMY,RADICAL, W/NERVE SPARE,INCL ROBOTIC PROSTATECTOMY, RADICAL, ROBOT-ASSISTED Dyllan Paul MD [address] [address] Phone: tel: fax: [facility] [address] [place] [address] Phone: tel: Referral ID Status Reason Start Date Expiration Date Visits Re quested Visits Authorized [id number] 1 1 Encounter Details Date Type Department Care Team (Latest Contact Info) Description 06/12/2025 10:20 AM EDT - 06/25/2025 7:12 PM EDT Hospital Encounter [facility] Inpatient [address] [place] [address] Dyllan Paul MD [address] [phone] Prostate CA (CMS/HCC) (Primary Dx); Alcohol use [...] time in the past 12 m [facility], were you homeless or living in a usp (including now)? No 06/16/2025 Utilities Answer Date [...] confirm your location ahead of your appointment) [facility] [address] [facility] [address], [facility], [address] [place] [address] Clinic After Hours [facility] [address] [place] [address] Clinic documented in this encounter Medications at Time of Discharge atorvastatin (Lipitor) 10 MG tablet Take 1 tablet by mouth daily. carvedilol (Coreg) 3.125 MG tabletIndications :Esophageal varices without bleeding, unspecified esophageal varices type (CMS/HCC) Take 1 tablet by mouth 2 times a day. 60 tablet 2 03/28/2025 enoxaparin (Lovenox) 120 MG/0.8ML solution prefilled syringe Inject 0.8 mL under the skin every 12 hours. 180 each 06/25/2025 furosemide (Lasix) 40 MG tablet Take 1 tablet by mouth 2 times a day. methocarbamol (Robaxin) 750 MG tablet Take 1 tablet by mouth 4 times a day as needed for muscle spasms. 120 tablet 06/25/2025 multivitamin-iron -minerals-folic acid (Centrum) chewable tablet Chew 1 tablet daily. tamsulosin (Flomax) 0.4 MG 24 hr capsule Take 1 capsule by mouth 1 time each day with dinner. 30 capsule 06/25/2025 5 Vitamin E 450 MG (1000 UT) capsule Take 1,000 Units by mouth 1 (one) time each day. acetaminophen (Tylenol) 500 MG tablet Take 2 tablets by mouth every 8 hours as needed for pain. 60 tablet 06/25/2025 5 ibuprofen 400 MG tablet Take 2 tablets by mouth every 6 hours as needed for moderate pain. 60 tablet 06/25/2025 5 lactulose (Chronulac) 10 GM/15ML solution Take 15 mL by mouth daily. 473 mL 1 06/26/2025 5 potassium chloride CR (Klor-Con) 10 MEQ ER tablet Take 1 tablet by mouth daily. Do not crush, chew, or split. 5 documented as of this encounter Miscellaneous [...] part of the patient's medical record. * Laury Espino - Yina Kruse RN - 06/25/2025 5:19 PM EDT Images from the original note were not included. [id number] Preventing Kidney Stones If you?ve had a [...] cystine. Last Reviewed Date: 2025 00:00:00 ?? [id number] [employer]. All rights reserved. This information is not [...] available in your area, call the [facility] at [phone]. * [facility] Yina Kruse RN - 06/25/2025 5:19 PM EDT Images from the original note were not included. [id number] Enoxaparin Injection IMPORTANT WARNING: If you have [...] be awakened, immediately call emergency services at 911. What OTHER INFORMATION should I know? Keep [...] of all of the prescription and nonprescription (uhhg-fnl-dzvbgni) medicines, vitamins, minerals, and dietary supplements you [...] or pharmacist about specific clinical use. The [employer] [employer] represents that the information provided hereunder was formulated with a reasonable standard of care, and in conformity with professional standards in the field. The [employer] makes no representations or warranties, express or implied, including, but not limited to, any implied warranty of merchantability and/or fitness for a particular purpose, with respect to such information and specifically disclaims all such warranties. Users are advised that decisions regarding drug therapy are complex medical decisions requiring the independent, informed decision of an appropriate health home care provider, and the information is provided for informational purposes only. The entire monograph for a drug should be reviewed for a thorough understanding of the drug's actions, uses and side effects. The [employer] does not endorse or recommend the use of any drug.The information is not a substitute for medical care. AHFS?? Patient Medication Information?. ?? Copyright, 2023. The [employer]??, [address] [facility], [address], [place], [place]. All Rights Reserved. Duplication for commercial use must be authorized by [facility]. Selected Revisions: June 08, 2024. AHFS?? Patient Medication Information?. ?? Copyright, 2024 * [facility] [place] - Yina Kruse RN - 06/25/2025 5:19 PM EDT Images from the original note were not included. [id number] Methocarbamol WHY is this medicine prescribed? Methocarbamol [...] be awakened, immediately call emergency services at 911. What OTHER INFORMATION should I know? Keep all appointments with your doctor. Do not let anyone else take your medication. Ask your pharmacist any questions you have about refilling your prescription. Keep a written list of all of the prescription and nonprescription (xayx-uct-zewehwq) medicines, vitamins, minerals, and dietary supplements you [...] or pharmacist about specific clinical use. The [employer] represents that the information provided hereunder was formulated with a reasonable standard of care, and in conformity with professional standards in the field. The [employer] makes no representations or warranties, express or implied, including, but not limited to, any implied warranty of merchantability and/or fitness for a particular purpose, with respect to such information and specifically disclaims all such warranties. Users are advised that decisions regarding drug therapy are complex medical decisions requiring the independent, informed decision of an appropriate health home care provider, and the information is provided for informational purposes only. The entire monograph for a drug should be reviewed for a thorough understanding of the drug's actions, uses and side effects. The [employer] does not endorse or recommend the use of any drug.The information is not a substitute for medical care. AHFS?? Patient Medication Information?. ?? Copyright, 2023. The [employer]??, [address] [facility] [address] [facility], [address], [place], [place]. All Rights Reserved. Duplication for commercial use must be authorized by [facility]. Selected Revisions: July 04, 2017. AHFS?? Patient Medication Information?. ?? Copyright, 2024 * Laury Espino - Yina Kruse RN - 06/25/2025 5:19 PM EDT Images from the original note were not included. [id number] Stool Softeners WHY is this medicine prescribed? [...] and out of their sight and reach. [email or web address] Dispose of unneeded medications in a way [...] of all of the prescription and nonprescription (xcqu-cfb-fxgsxny) medicines, vitamins, minerals, and dietary supplements you [...] or pharmacist about specific clinical use. The [employer] represents that the information provided hereunder was formulated with a reasonable standard of care, and in conformity with professional standards in the field. The [employer] makes no representations or warranties, express or implied, including, but not limited to, any implied warranty of merchantability and/or fitness for a particular purpose, with respect to such information and specifically disclaims all such warranties. Users are advised that decisions regarding drug therapy are complex medical decisions requiring the independent, informed decision of an appropriate health home care provider, and the information is provided for informational purposes only. The entire monograph for a drug should be reviewed for a thorough understanding of the drug's actions, uses and side effects. The [employer] does not endorse or recommend the use of any drug.The information is not a substitute for medical care. AHFS?? Patient Medication Information?. ?? Copyright, 2023. The [employer]??, [address] [facility] [address] [facility], [address], [place], [place]. All Rights Reserved. Duplication for commercial use must be authorized by [facility]. Selected Revisions: May 09, 2024. AHFS?? Patient Medication Information?. ?? Copyright, 2024 * [facility] - Yina Kruse RN - 06/25/2025 5:19 PM EDT Images from the original note were not included. [id number] Pulmonary Embolism (PE) A pulmonary embolus is [...] cut Last Reviewed Date: 2022 00:00:00 ?? [id number] [employer]. All rights reserved. This information is not intended as a substitute for professional medical care. Always follow your healthcare professional's instructions. * [facility] - Yina Kruse RN - 06/25/2025 5:19 PM EDT Images from the original note were not included. 12003 Discharge Instructions for Pulmonary Embolism A deep [...] bleeding. Last Reviewed Date: 2024 00:00:00 ?? [id number] [employer]. All rights reserved. This information is not intended as a substitute for professional medical care. Always follow your healthcare professional's instructions. * [place] - Yina Kruse RN - 06/25/2025 5:19 PM EDT Images from the original note were not included. [id number] Lactulose WHY is this medicine prescribed? Lactulose [...] and out of their sight and reach. [email or web address]://[email or web address].[email or web address].org What OTHER INFORMATION should I know? Keep all appointments with your doctor. To improve the taste of lactulose, mix your dose with one-half glass of water, milk, or fruit juice. Do not let anyone else take your medicine. Ask your pharmacist any questions you have about refilling your prescription. Keep a written list of all of the prescription and nonprescription (jznz-uoh-bokjadt) medicines, vitamins, minerals, and dietary supplements you [...] or pharmacist about specific clinical use. The [employer] represents that the information provided hereunder was formulated with a reasonable standard of care, and in conformity with professional standards in the field. The [employer] makes no representations or warranties, express or implied, including, but not limited to, any implied warranty of merchantability and/or fitness for a particular purpose, with respect to such information and specifically disclaims all such warranties. Users are advised that decisions regarding drug therapy are complex medical decisions requiring the independent, informed decision of an appropriate health home care provider, and the information is provided for informational purposes only. The entire monograph for a drug should be reviewed for a thorough understanding of the drug's actions, uses and side effects. The [employer] does not endorse or recommend the use of any drug.The information is not a substitute for medical care. AHFS?? Patient Medication Information?. ?? Copyright, 2023. The [employer]??, [address] [facility] [facility], [address], [place], [place]. All Rights Reserved. Duplication for commercial use must be authorized by [facility]. Selected Revisions: December 04, 2023. AHFS?? Patient Medication Information?. ?? Copyright, 2024 * [facility] [place] - Yina Kruse RN - 06/25/2025 5:19 PM EDT Images from the original note were not included. [id number] Orchitis Orchitis is inflammation of the testicles. [...] you're feeling better. ? You may use cvwm-ter-ybckikc medicines to control pain, unless you were [...] testicles. Last Reviewed Date: 2025 00:00:00 ?? [id number] [employer]. All rights reserved. This information is not intended as a substitute for professional medical care. Always follow your healthcare professional's instructions. * [facility] - Yina Kruse RN - 06/25/2025 5:19 PM EDT Images from the original note were not included. 48760 Preventing a Surgical Site Infection A risk [...] of infection. ? Controlled body temperature. A bhyul-odfo-trxess temperature during or after surgery prevents oxygen [...] and water or with an alcohol-based hand tie binder before and after caring for you. Don?t [...] away. Last Reviewed Date: 2024 00:00:00 ?? [id number] [employer]. All rights reserved. This information is not intended as a substitute for professional medical care. Always follow your healthcare professional's instructions. * [facility] - Yina Kruse RN - 06/25/2025 5:19 PM EDT Images from the original note were not included. [id number] Acetaminophen IMPORTANT WARNING: Taking too much acetaminophen [...] measuring cup or syringe provided by the support services tech to measure each dose of the solution [...] and out of their sight and reach. [email or web address]://www.Tello.org Dispose of unneeded medications in a way [...] be awakened, immediately call emergency services at [phone]. If someone takes more than the recommended [...] of all of the prescription and nonprescription (lsyk-axq-hvznuvh) medicines, vitamins, minerals, and dietary supplements you [...] a combination product containing Acetaminophen, Oxycodone) APAP, S-rwldxg-mogp-aminophenol, Paracetamol This report on medications is for your information only, and is not considered individual patient advice. Because of the changing nature of drug information, please consult your physician or pharmacist about specific clinical use. The [employer] represents that the information provided hereunder was formulated with a reasonable standard of care, and in conformity with professional standards in the field. The [employer] makes no representations or warranties, express or implied, including, but not limited to, any implied warranty of merchantability and/or fitness for a particular purpose, with respect to such information and specifically disclaims all such warranties. Users are advised that decisions regarding drug therapy are complex medical decisions requiring the independent, informed decision of an appropriate health home care provider, and the information is provided for informational purposes only. The entire monograph for a drug should be reviewed for a thorough understanding of the drug's actions, uses and side effects. The [employer] does not endorse or recommend the use of any drug.The information is not a substitute for medical care. AHFS?? Patient Medication Information?. ?? Copyright, 2023. The [employer]??, [address] [facility] [address] [facility], [address], [place], [place]. All Rights Reserved. Duplication for commercial use must be authorized by [facility]. Selected Revisions: August 04, 2023. AHFS?? Patient Medication Information?. ?? Copyright, 2024 * Discharge Summary - Bianka Hansen MD - 06/25/2025 4:15 PM EDT Hospitalization Admit Date/Time: 06/12/2025 10:20 AM Admitting Attending: Dyllan Paul Discharge Date: 06/25/25 Discharge Attending Physician: Dyllan Paul MD PCP name and Address: Murray Prajapati MD [address] [facility] [address] / [place] [address] Referring provider name and address: No referring provider defined for this encounter. Chief Concern, Brief History of Present Illness, and Hospital Course Eber Lowe is a 70 y.o. male with PMH unfavorable intermediate risk prostate cancer, GG3 diffusely on the left, PSA 4.7 who presented to [facility] ED for planned surgical intervention. They [...] [facility] Alert and oriented x3 when seen [...] a day as needed for muscle spasms. ofvybjrkpsgt-syoe-bnxfuxds-folic acid chewable tablet Chew 1 tablet daily. [...] Your Medications These medications were sent to [facility] - [place], [place] - [address] [facility] [address] acetaminophen 500 MG tablet enoxaparin 120 MG/0.8ML [...] confirm your location ahead of your appointment) [facility]rology Department Clinic at [facility] [address] [facility], 2nd Floor, [facility], [address] [place] [address] Clinic After Hours [facility] [place] [facility] Clinic [address] [place] [address] Clinic Outpatient Follow-Up No future appointments. Test [...] Hansen MD Department of Urology, PGY-1 Pager: [phone] I spent >30 minutes of patient care [...] Mobility Bed Mobility Exam: Scooting/Bridging Level of [place]: Contact guard (to scoot EOB in sitting) Physical/Nonphysical Assist: Verbal Cues, Nonverbal cues (demo/gestures), Additional assist utilized for safety, Minimal cues Assistive Device: Bed rails Bed Mobility Exam: Supine to Sit Level of [place]: Stand-by assist Physical/Nonphysical Assist: Verbal Cues, Minimal cues Assistive Device: Bed rails Transfers Transfer Exam: Sit to stand Level of [place]: Stand-by assist Physical/Nonphysical Assist: Nonverbal cues (demo/gestures), Verbal Cues, Minimal cues Assistive Device: Walker, rolling Transfer Exam: Stand to Sit Level of [place]: Stand-by assist Physical/Nonphysical Assist: Nonverbal cues (demo/gestures), [...] provided additional clean abdominal binder. Standardized Assessments [facility] 6-Clicks Mobility Assessment Difficulty patient has turning [...] 3-5 steps with a railing?: A little [facility] 6-Clicks Mobility Assessment Total : 18 Assessment [...] Can consider referral to [facility] for street contractor management of cirrhosis. It appears the patient has been getting routine HCC screening through transplant so it would be reasonable to continue follow-up with Transplant and forego a hepatology referral. This can be decided at the discretion of the primary team and the patient. Jairo Campoverde DO PGY-3 [facility] - Internal Medicine Epic Chat preferred; Pager [phone] Cosigned by Nir Aguilar MD at 06/25/2025 [...] resolve due to cirrhosis. The need for mcfp lactulose at this point is not known [...] sign off at this time. lease page [phone] with any additional questions, or resident on-call [...] Hansen MD - 06/25/2025 5:41 AM EDT [facility]rology Inpatient Progress Note Primary Attending: Dyllan [...] Type: Bulb Size (Fr.): 10 Fr. Drain [place] Size (mL): 100 mL Urethral Catheter Double-lumen;Non-latex [...] for analysis - Appreciate Medicine recs for street contractor anticoagulation and PE findings - Will discuss [...] Hansen MD Department of Urology, PGY-1 Pager: [phone] Cosigned by Dyllan Paul MD at 06/29/2025 [...] Ongoing, Progressing Intervention: Promote Activity and Functional [place] Flowsheets (Taken 06/25/2025344) Activity Assistance Provided: assistance, [...] Hansen MD - 06/24/2025 6:55 PM EDT [facility] Inpatient Progress Note Primary Attending: Dyllan [...] Type: Bulb Size (Fr.): 10 Fr. 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 Exam - no asterixis - firm abdomen with evidence of ascites - 2+ LE edema * Progress Notes - Sheryl Huerta RN - 06/24/2025 8:26 AM EDT Rx for RW sent to [facility] via [facility] for bedside delivery. No HH [...] Transfer Exam: Sit to stand Level of Campbell: Contact guard Physical/Nonphysical Assist: Nonverbal cues (demo/gestures), Verbal Cues, Minimal cues Assistive Device: Walker, rolling Transfer Exam: Stand to Sit Level of Campbell: Contact guard Physical/Nonphysical Assist: Nonverbal cues (demo/gestures), Verbal Cues, Minimal cues Assistive Device: Walker, rolling Transfer Exam: Bed to Chair/Chair to Bed Level of Campbell: Minimum assist (75% patient's effort) Physical/Nonphysical Assist: Verbal Cues, Maximal cues, 1 person + 1 person to manage equipment, Nonverbal cues (demo/gestures), Additional assist utilized for safety Type of Transfer: Sidesteps Assistive Device: Hand held assist Toilet Transfer Level of Campbell: Contact guard Physical/Nonphysical Assist: Verbal Cues, Nonverbal [...] and safety in home setting. Standardized Assessments [facility] 6-Clicks Mobility Assessment Difficulty patient has turning [...] 3-5 steps with a railing?: A little [facility] 6-Clicks Mobility Assessment Total : 18 Assessment [...] Note Eber Lowe 70 y.o. male CSN: [id number] Admission: 06/12/2025 10:20 AM Primary Problem: Prostate CA (CMS/HCC) Anticipated Discharge Date: 06/26/25 Has Discharge Plans Changed? Medicare Second Notice: Housing Circumstances: Housing Circumstances Action Taken: Medically Ready for Discharge: Additional Comments Per PT/OT pt has HH PT/OT recs, referral sent to agencies via [facility] for acceptance. POC reviewed with primary team. Refer to primary team's note for details. Pt is not medically readyfor discharge. In??s KELLY Mistry, position description manager * Consults - Crystal Corley RD - 06/23/2025 12:59 PM EDT Adult Nutrition Evaluation Note Eber Lowe 70 y.o. male CSN: [id number] Room/Bed 227/227A Nutrition evaluation type: follow-up Reason for evaluation: Hospital course: 70 y.o male admitted with prostate cancer. OR 06/12 for robot assisted laparotomy prostatectomy with bilateral pelvic lymph node dissection requiring ex-lap. 06/23: GAME TRAPPER on 06/22: Regular (IDDSI Level 7) diet w/ thin liquids (Level 0). Meds as able. No further GAME TRAPPER services indicated at this time. + liquid stools- diff stool test. Past medical/ surgical history: Past Medical History[1] Surgical History[2] Social history: Additional comments: Visited room. TF running at 40 ml/hr. Tolerating per RN. Vitals and Basic Assessment: BP: 130/74 Temp: 36.4 ??C (97.5 ??F) Invasive Ventilator Initiated (ETT/Trach Only): Yes Oxygen Therapy: None (Room air) O2 Delivery Method: Nasal cannula [place] Coma Scale Score: 15 Alex Scale Score: [...] 37.68 Weight Evaluation: Obese-Class 2 (BMI 35-39.9) [place] Body Weight (kg): 72.7 Percent [place] Body Weight: 150 Adjusted Body Weight (kg): [...] and elytes Acuity Level: 3 Crystal Corley, SHIAR, LD [1] Past Medical History: Diagnosis Date [...] pt and family on purchasing options via [employer])) Subjective I will try the scrotal sling after I take a shower. Participants in Care Family/Caregiver Present: Yes Family/Caregiver: Spouse Backhaul Driver: Not Applicable Presentation Oxygen Therapy: None (Room [...] Transfer Exam: Sit to stand Level of Campbell: Contact guard Physical/Nonphysical Assist: Nonverbal cues (demo/gestures), Verbal Cues, Minimal cues Assistive Device: Walker, rolling Transfer Exam: Stand to Sit Level of Campbell: Contact guard Physical/Nonphysical Assist: Nonverbal cues (demo/gestures), Verbal Cues, Minimal cues Assistive Device: Walker, rolling Toilet Transfer Level of Campbell: Contact guard Physical/Nonphysical Assist: Set-up required, Verbal [...] pt and family on purchasing options via [employer])) Plan Continue with established OT plan of [...] Mariely Olson - 06/23/2025 7:22 AM EDT [facility] In[facility] Progress Note Primary Attending: Dyllan [...] Type: Bulb Size (Fr.): 10 Fr. Drain [place] Size (mL): 100 mL Urethral Catheter Double-lumen;Non-latex [...] Earl MD - 06/22/2025 1:06 PM EDT [facility] Progress Note Primary Attending: Dyllan [...] Type: Bulb Size (Fr.): 10 Fr. Drain [place] Size (mL): 100 mL Urethral Catheter Double-lumen;Non-latex 20 Fr. (Active) Placement Date/Time: 06/12/25 183 Inserted by: ST Denis, under Dr. Paul's [...] care. * Progress Notes - Aurea Rodrigues, ANDRÉS-GAME TRAPPER - 06/22/2025 10:27 AM EDT Speech Language Pathology Clinical Swallow Initial Evaluation Patient Name: Eber Lowe Age: 70 y.o. Today's Date: 06/22/2025 Recommendations: Regular (IDDSI Level 7) diet w/ thin liquids (Level 0). Meds as able. No further GAME TRAPPER services indicated at this time. Will sign [...] Feeding Trials: Positionin degrees, upright Feeding assistance: GAME TRAPPER presented PO trials to patient Consistencies Administered: thin liquid via straw and dry solid consistency [place] Swallow Protocol (Johnna and Teresita, 2014) - 3 Oz water challenge: pass [...] (Level 0). Meds as able. No further GAME TRAPPER services indicated at this time. Will sign [...] Earl MD - 06/21/2025 7:16 AM EDT [facility] Progress Note Primary Attending: Dyllan [...] Type: Bulb Size (Fr.): 10 Fr. Drain [place] Size (mL): 100 mL Urethral Catheter Double-lumen;Non-latex [...] labs - [facility] - Continue cardiac diet - Continue Delirium [...] admission Level of Mobility Ambulatory- community Mobility Campbell Independent gait without device History of Falls [...] is worn out. Visitors Present Yes Spouse Backhaul Driver (if applicable) N/A OBJECTIVE Vital Signs Pre-Session [...] activity throughout session. BED MOBILITY Level of Campbell Physical/Non- physical Assist Adaptive Equipment Utilized Rolling/ Turning Scooting/ Bridging Contact guard (to scoot out to EOB while seated) Nonverbal cues (demo/gestures), Verbal Cues, Minimal cues Other (PHARMACIST HELPER) Supine to Sit Moderate assist (50% patient's effort) HOB elevated, Nonverbal cues (demo/gestures), Verbal Cues, Minimal cues, Additional assist utilized for safety Other (PHARMACIST HELPER for leverage) Sit to Supine Interventions TRANSFERS Level of Campbell Physical/Non- physical Assist Adaptive Equipment Utilized Sit [...] Interventions BALANCE Interventions Postural Appearance Level of Campbell Balance Support Interventions Static Sit Contact guard Feet supported Dynamic Sit Minimum assistance Feet supported Dynamic Sitting-Balance: Anterior/Posterior weight shifts, Lateral weight shifts Static Stand Minimum assistance Right upper extremity support, Left upper extremity support (PHARMACIST HELPER x 2) Patient stood with PHARMACIST HELPER x 2 while being cleaned up + brief change prior to sitting down in chair. Stood ~ 5 min. Dynamic Stand Minimum assistance Left upper extremity support, Right upper extremity support (PHARMACIST HELPER x2) Lateral weight shifts, Anterior/Posterior weight shifts AMBULATION Level of Campbell Distance Adaptive Equipment Utilized Ambulation Minimum assistance [...] accessed by patient at the following: URL: [email or web address] Access Code: [email or web address] Date: 06/20/25 Prepared by: Eva French, PT [...] in Care Family/Caregiver Present: Yes Family/Caregiver: Spouse Backhaul Driver: Not Applicable Presentation Oxygen Therapy: None (Room [...] Mobility Bed Mobility Exam: Scooting/Bridging Level of Campbell: Contact guard (to scoot out to EOB while seated) Physical/Nonphysical Assist: Nonverbal cues (demo/gestures), Verbal Cues, Minimal cues Assistive Device: Other (PHARMACIST HELPER) Bed Mobility Exam: Supine to Sit Level of Campbell: Moderate assist (50% patient's effort) Physical/Nonphysical Assist: HOB elevated, Nonverbal cues (demo/gestures), Verbal Cues, Minimal cues, Additional assist utilized for safety Assistive Device: Other (PHARMACIST HELPER for leverage) Transfers Transfer Exam: Sit to stand Level of Campbell: Minimum assist (75% patient's effort) Physical/Nonphysical Assist: Nonverbal cues (demo/gestures), Verbal Cues, Minimal cues, Additional assist utilized for safety Assistive Device: Hand held assist Transfer Exam: Stand to Sit Level of Campbell: Minimum assist (75% patient's effort) Physical/Nonphysical Assist: Nonverbal cues (demo/gestures), Verbal Cues, Minimal cues, Additional assist utilized for safety Assistive Device: Hand held assist Transfer Exam: Bed to Chair/Chair to Bed Level of Campbell: Minimum assist (75% patient's effort) Physical/Nonphysical Assist: [...] below regarding pt individualized HEP: Access Code: [email or web address] URL: [email or web address] Date: 06/20/2025 Prepared by: Exercises - Seated [...] Pt participating in testing at bedside upon GAME TRAPPER entrance. GAME TRAPPER spoke with pt's who reported that pt ate and drank yesterday without concerns. She stated that she would discuss participation in the clinical swallow evaluation with pt when he is done with the current testing. GAME TRAPPER to check back asscheduling allows. Jeff Penaloza MA, CCC-GAME TRAPPER, [facility] Speech Language Pathologist * Progress Notes - Homar Grajeda - 06/20/2025 10:22 AM EDT [facility] Progress Note Primary Attending: Dyllan [...] Type: Bulb Size (Fr.): 10 Fr. Drain [place] Size (mL): 100 mL Urethral Catheter Double-lumen;Non-latex [...] saw and evaluated the patient with the medical/REPAIR WELDER/PA student. I discussed the case with the medical/REPAIR WELDER/PA student and agree with the findings and [...] and Manage Fall Risk Flowsheets (Taken 06/19/2025 08) Safety Promotion/Fall Prevention: activity supervised assistive device/personal [...] RN Infection Management: aseptic technique maintained Taken 06/18/2025799 by Lesia Booth RN Fever Reduction/Comfort Measures: [...] 12:35 PM EDTAssociated Order(s): IP CONSULT TO [facility] MEDICINE MARK Images from the original note [...] upgraded to ICU level of status and [facility] assisted with care. Hospital Medicine consulted on 06/19 after downgrade out of ICU when [facility] signed off for management of hypernatremia and [...] mg, 2 times daily (0900 & 1500) jqqafjwgrpda-bjgw-zvsugqjo-folic acid (Centrum) chewable tablet 1 tablet, Daily [...] Medicine Resident PGY-3 Epic Chat Preferred; Pager [phone] [1] Past Medical History: Diagnosis Date Cancer [...] Note Eber Lowe 70 y.o. male CSN: [id number] Admission: 06/12/2025 10:20 AM Primary Problem: Prostate CA (CMS/HCC) Anticipated Discharge Date: 06/23/25 Has Discharge Plans Changed? Medicare Second Notice: Housing Circumstances: Housing Circumstances Action Taken: Medically Ready for Discharge: Additional Comments POC reviewed with primary team. Refer to primary team's note for details. Pt is not medically readyfor discharge. In??KELLY Baltazar, position description manager * Consults - Eva Acosta APRN - 06/19/2025 10:34 AM EDTAssociated Order(s): IP CONSULT TO PHYSICAL MEDICINE REHAB Images from the original note were not included. PHYSICAL MEDICINE & REHABILITATION INPATIENT CONSULT NOTE Patient: Eber Lowe : 1955 PCP: Murray Prajapati MD at [address] [place] [address] [address] / [place] [id number] Payor: DANIKA / Plan: DANIKA TRADITIONAL/[place] STATE/FED BCBS / Product Type: *No Product [...] has now passed bedside swallow eval with GAME TRAPPER and cleared to advance diet as tolerated [...] his normal when he wakes up initially. [place] like the propofol was still a factor in confusion. I explained there were a multitude of factors when hospitalized, anesthesia, infection, etc. [facility], and pt has no memory of this, or why. Very pleasant, following commands. PMH: Past Medical History[1] PSH: Surgical History[2] Allergies: Allergies[3] Home Medications: Current Outpatient Medications Medication Instructions atorvastatin (LIPITOR) 10 mg, Daily carvedilol (COREG) 3.125 mg, Oral, 2 times daily furosemide (LASIX) 40 mg, 2 times daily (0900 & 1500) pwrirltbowim-awfb-jzgdtfod-folic acid (Centrum) chewable tablet 1 tablet, Daily potassium chloride CR (Klor-Con) 10 MEQ ER tablet 10 mEq, Daily Vitamin E 1,000 Units, Daily Active Medications: Continuous: Current Continuous Medications[4]Scheduled: Current Scheduled Medications[5]PRN: Current PRN Medications[6] Family history: Family History[7] Social history: Marital Status: , Javon Children: 3 children Previous Residence: lives with in [place], [place] in a 1.5 story house with [...] admission Level of Mobility: Ambulatory- community Mobility Campbell: Independent gait without device History of Falls: No ADL Performance: Independent Current: Mobility Bed Mobility Exam: Scooting/Bridging Level of Campbell: Moderate assist (50% patient's effort) (progressing to CGA; to scoot anterior/posteriorly) Physical/Nonphysical Assist: Verbal Cues, Moderate cues, Nonverbal cues (demo/gestures), Additionalassist utilized for safety Assistive Device: Other (draw sheet) Bed Mobility Exam: Supine to Sit Level of Campbell: Moderate assist (50% patient's effort) Transfer Exam: Sit to stand Level of Campbell: Moderate assist (50% patient's effort) (x 2 reps from bed and recliner chair) Physical/Nonphysical Assist: Maximal cues, Verbal Cues, Nonverbal cues (demo/gestures), 1 person + 1 person to manage equipment, Additional assist utilized for safety Assistive Device: Walker, rolling Transfer Exam: Stand to Sit Level of Campbell: Moderate assist (50% patient's effort) Physical/Nonphysical Assist: Verbal Cues, Nonverbal cues (demo/gestures), 1 person + 1 person to manage equipment, Maximal cues, Additional assist utilized for safety Assistive Device: Walker, rolling Transfer Exam: Bed to Chair/Chair to Bed Level of Campbell: Moderate assist (50% patient's effort) Physical/Nonphysical Assist: [...] Value Units Date/Time Blood Culture (Aerobic/Anaerobet Set) [[id number]] Collected: 06/14/25816 Order Status: Completed Specimen: Blood from Bicep, right Updated: 06/19/25 1001 Culture No growth at day 5 Respiratory Culture and Gram Stain [[id number]] (Abnormal) Collected: 06/14/25 0818 Order Status: Completed [...] Abnormal Ventricular Rate [address] Interval 152 QRSD Interval 86 QT Interval 336 QTC Interval 452 P [place] -6 R [place] -1 T Wave [place] 5 Diagnosis Sinus tachycardia Diagnosis Poor R-wave [...] Center 06/24/2025 2:45 PM Dyllan Paul MD [facility][1] Mobility Orders Mobility Protocol: General - Mobility [...] removed if appropriate, prior to DC. Recommend GAME TRAPPER services for cognition, ongoing as pt is disoriented. Continue to monitor leukocytosis to ensure stability prior to dc. Consider UA vs ongoing workup andeval for possible HE Thank you for allowing us to participate in the care of your patient. We will continue to follow. Please page [phone] with any questions, or resident on-call if [...] Ken MD - 06/19/2025 8:30 AM EDT [facility] Progress Note Primary Attending: Dyllan [...] Type: Bulb Size (Fr.): 10 Fr. Drain [place] Size (mL): 100 mL Urethral Catheter Double-lumen;Non-latex [...] will defer further management to primary team(s). [facility] will sign off. Thank you for involving [...] sitting balance. Pt required dep A to pulling machine operator hips due to edema and [...] and consider taking a photograph to document. 06/13/251746 06/13/25 1221 Wound ostomy eval and treat [...] Assessment Red Margins Well-defined edges Cari-Wound Assessment Orrum Shape linear, full thickness Wound Length (cm) [...] EDT Referral for acute rehab sent to [facility] via [facility], PM&R consult requested from MD Cai, [...] Pain and Promote Comfort Flowsheets (Taken 06/18/2025 0800) Pain Management Interventions: care clustered pillow support [...] AM EDT Associated Problem(s): Prostate CA (CMS/HCC) 06/12: robot-assisted radical prostatectomy, complicated by severed [...] nare 06/13/25 1438 Left nare 4 GCS: [place] Coma Scale Score: 13 Review of Systems [...] Mobility Bed Mobility Exam: Scooting/Bridging Level of Campbell: Contact guard (to scoot EOB in sitting) Physical/Nonphysical Assist: Verbal Cues, Nonverbal cues (demo/gestures), Additional assist utilized for safety, Minimal cues Assistive Device: Bed rails Bed Mobility Exam: Supine to Sit Level of Campbell: Minimum assist (75% patient's effort) Physical/Nonphysical Assist: Verbal Cues, HOB elevated, Nonverbal cues (demo/gestures), Additional assist utilized for safety, Minimal cues Assistive Device: Bed rails Bed Mobility Exam: Sit to Supine Level of Campbell: Moderate assist (50% patient's effort) Physical/Nonphysical Assist: [...] Transfer Exam: Sit to stand Level of Campbell: Moderate assist (50% patient's effort) (regressing to maxA) Physical/Nonphysical Assist: Maximal cues, Verbal Cues, Nonverbal cues (demo/gestures), 1 person + 1 person to manage equipment, Additional assist utilized for safety Assistive Device: Walker, rolling Transfer Exam: Stand to Sit Level of Campbell: Moderate assist (50% patient's effort) (regressing to maxA) Physical/Nonphysical Assist: Verbal Cues, Nonverbal cues (demo/gestures), 1 person + 1 person to manage equipment, Maximal cues, Additional assist utilized for safety Assistive Device: Walker, rolling Transfer Exam: Bed to Chair/Chair to Bed Level of Campbell: Minimum assist (75% patient's effort) Physical/Nonphysical Assist: [...] supine. Standardized Assessments Standardized Assessments Standardized Assessments: AMPA 6-Clicks Mobility Assessment [facility] 6-Clicks Mobility Assessment Difficulty patient has turning [...] 3-5 steps with a railing?: A lot [facility] 6-Clicks Mobility Assessment Total : 17 Assessment [...] Ken MD - 06/18/2025 7:39 AM EDT [facility] Progress Note Primary Attending: Dyllan [...] Type: Bulb Size (Fr.): 10 Fr. Drain [place] Size (mL): 100 mL Urethral Catheter Double-lumen;Non-latex [...] Reasons Emotional support; Family support Referral From Pulp Press Tender Initiated Spiritual Assessment Support Systems/ Spiritual Resources Sir[place]; Family; Prayer Spiritual Needs Emotional support; Prayer; Spiritual support Spiritual Issues Chronic pain/ illness; Critical Illness Interventions Interventions Provided Emotional support; Family support; Prayer; Identify jain/ spiritual coping; Introduced Patient/Family to Pulp Press Tender Services; Supportive Listening; Spiritual support Outcomes Patient Outcomes Demonstrates lower level of Anxious(ness); Is knowledgeable about Clipping Marker Services; Appreciative of Pulp Press Tender Support; Identifies spiritual or jain practices as helpful Follow-Up Last Date of Pastoral Care Contact 06/17/2025 Pastoral Care Comment An introductory visit with patient and family, spouse and son, and provided emotional support. Spouse spoke about patient condition and mentioned that he is doing a lot better today. Pulp Press Tender provided a supportive presence, empathic listening, and [...] 06/12/2025 for work-up of Prostate CA ([facility]). Problem List Active Hospital Problems Diagnosis Date Noted Metabolic encephalopathy 06/17/2025 Hypotension 06/13/2025 Hypocalcemia 06/13/2025 Prostate CA (CMS/HCC) 06/12/2025 On mechanically assisted ventilation ([facility]/HCC) 06/12/2025 Anemia 06/12/2025 Hyperlipidemia 06/12/2025 Leukocytosis 06/12/2025 Cirrhosis of liver ([facility]/HCC) 06/12/2025 Hyperbilirubinemia 06/12/2025 Esophageal varices 06/12/2025 Renal calculi 06/12/2025 Hypertension 06/12/2025 Alcohol use disorder 06/12/2025 SCC (squamous cell carcinoma), leg, left 06/12/2025 Electrolyte abnormality 06/12/2025 Severe obesity (BMI 35.0-39.9) with comorbidity ([facility]) 06/03/2025 Procedures 06/12/2025 Procedure(s): PROSTATECTOMY, RADICAL, ROBOT-ASSISTED Past Medical History Patient has a past medical history of Cancer ([facility]) (january 26, 2025), Cirrhosis ([facility]) (2021),History of methicillin resistant Staphylococcus [...] admission Level of Mobility: Ambulatory- community Mobility Campbell: Independent gait without device History of Falls: [...] (Difficult to assess due to cognitive deficits. Census Clerk strength 3/5, otherwise 2-/5 based on observation.) Sensation Light Touch: Right Upper Extremity: Intact Left Upper Extremity Examination LUE ROM Assessment LUE Assessment: Within Functional Limits (AAROM) Manual Muscle Testing - LUE Manual Muscle Testing - LUE: (Difficult to assess due to cognitive deficits. Census Clerk strength 3/5, otherwise 2-/5 based on observation.) [...] Mobility Bed Mobility Exam: Scooting/Bridging Level of Campbell: Moderate assist (50% patient's effort) (progressing to CGA; to scoot anterior/posteriorly) Physical/Nonphysical Assist: Verbal Cues, Moderate cues, Nonverbal cues (demo/gestures), Additionalassist utilized for safety Assistive Device: Other (draw sheet) Bed Mobility Exam: Supine to Sit Level of Campbell: Moderate assist (50% patient's effort) Physical/Nonphysical Assist: Verbal Cues, Maximal cues, HOB elevated, Nonverbal cues (demo/gestures), Additional assist utilized for safety Assistive Device: Other (Draw sheet) Transfers Transfer Interventions: PT provided verbal cues for hand placement on therapists elbows, sequencing, and safety with line management. Subsequent stand x 30s with minor lateral wavering without overt LOB. Transfer Exam: Sit to stand Level of Campbell: Moderate assist (50% patient's effort) (x 2 reps from bed and recliner chair) Physical/Nonphysical Assist: Maximal cues, Verbal Cues, Nonverbal cues (demo/gestures), 1 person + 1 person to manage equipment, Additional assist utilized for safety Assistive Device: Walker, rolling Transfer Exam: Stand to Sit Level of Campbell: Moderate assist (50% patient's effort) Physical/Nonphysical Assist: Verbal Cues, Nonverbal cues (demo/gestures), 1 person + 1 person to manage equipment, Maximal cues, Additional assist utilized for safety Assistive Device: Walker, rolling Transfer Exam: Bed to Chair/Chair to Bed Level of Campbell: Moderate assist (50% patient's effort) Physical/Nonphysical Assist: [...] edema. Standardized Assessments Standardized Assessments Standardized Assessments: [facility] 6-Clicks Mobility Assessment [facility] 6-Clicks Mobility Assessment Difficulty patient has turning [...] climbing 3-5 steps with a railing?: Unable [facility] 6-Clicks Mobility Assessment Total : 15 Assessment [...] 06/12/2025 for work-up of Prostate CA ([facility]/HCC). Problem List Active Hospital Problems Diagnosis Date Noted Metabolic encephalopathy 06/17/2025 Hypotension 06/13/2025 Hypocalcemia 06/13/2025 Prostate CA ([facility]/HCC) 06/12/2025 On mechanically assisted ventilation ([facility]) 06/12/2025 Anemia 06/12/2025 Hyperlipidemia 06/12/2025 Leukocytosis 06/12/2025 Cirrhosis of liver ([facility]) 06/12/2025 Hyperbilirubinemia 06/12/2025 Esophageal varices 06/12/2025 Renal calculi 06/12/2025 Hypertension 06/12/2025 Alcohol use disorder 06/12/2025 SCC (squamous cell carcinoma), leg, left 06/12/2025 Electrolyte abnormality 06/12/2025 Severe obesity (BMI 35.0-39.9) with comorbidity ([facility]) 06/03/2025 Procedures 06/12/2025 Procedure(s): PROSTATECTOMY, RADICAL, ROBOT-ASSISTED Past Medical History Patient has a past medical history of Cancer (CMS/HCC) (january 26, 2025), Cirrhosis ([facility]) (2021),History of methicillin resistant Staphylococcus [...] admission Level of Mobility: Ambulatory- community Mobility Campbell: Independent gait without device History of Falls: [...] (Difficult to assess due to cognitive deficits. Census Clerk strength 3/5, otherwise 2-/5 based on observation.) Sensation Light Touch: Right Upper Extremity: Intact Left Upper Extremity Examination LUE ROM Assessment LUE Assessment: Within Functional Limits (AAROM) Manual Muscle Testing - LUE: (Difficult to assess due to cognitive deficits. Census Clerk strength 3/5, otherwise 2-/5 based on observation.) [...] Mobility Bed Mobility Exam: Scooting/Bridging Level of Campbell: Moderate assist (50% patient's effort) (progressing to CGA; to scoot anterior/posteriorly) Physical/Nonphysical Assist: Verbal Cues, Moderate cues, Nonverbal cues (demo/gestures), Additionalassist utilized for safety Bed Mobility Exam: Supine to Sit Level of Campbell: Moderate assist (50% patient's effort) Physical/Nonphysical Assist: Verbal Cues, Maximal cues, HOB elevated, Nonverbal cues (demo/gestures), Additional assist utilized for safety Transfers Transfer Exam: Sit to stand Level of Campbell: Moderate assist (50% patient's effort) (x 2 reps from bed and recliner chair) Physical/Nonphysical Assist: Maximal cues, Verbal Cues, Nonverbal cues (demo/gestures), 1 person + 1 person to manage equipment, Additional assist utilized for safety Assistive Device: Walker, rolling Transfer Exam: Stand to Sit Level of Campbell: Moderate assist (50% patient's effort) Physical/Nonphysical Assist: Verbal Cues, Nonverbal cues (demo/gestures), 1 person + 1 person to manage equipment, Maximal cues, Additional assist utilized for safety Assistive Device: Walker, rolling Transfer Exam: Bed to Chair/Chair to Bed Level of Campbell: Moderate assist (50% patient's effort) Physical/Nonphysical Assist: [...] off bed to don socks. Standardized Assessments [facility] 6-Click Daily Activities Help from Other: Don/Doff Regular Lower Body Clothings: Total Help From Other: Bathing: Total Help From Other: Toileting: Total Help From Other: Don/Doff Upper Body Clothings: A lot Help From Other: Grooming: A lot Help From Other: Eating Meals: Total (NPO, DHT) [facility] 6 Click - Daily Activities Score: [...] Ken MD - 06/17/2025 11:35 AM EDT [facility] Inpatient Progress Note Primary Attending: Dyllan [...] Type: Bulb Size (Fr.): 10 Fr. Drain [place] Size (mL): 100 mL Urethral Catheter Double-lumen;Non-latex [...] per ICU team -continue DANILO drain and mratinez catheter -NPO + mIVF -continue A line [...] Note Eber Lowe 70 y.o. male CSN: [id number] Room/Bed 239/239A Nutrition evaluation type: follow-up Reason [...] 35.21 Weight Evaluation: Obese-Class 2 (BMI 35-39.9) [place] Body Weight (kg): 72.7 Percent [place] Body Weight: 150 Adjusted Body Weight (kg): 82 Estimated Needs: Kcal/ K - 20 Kcal Provided: 1635 - 2180 Kcal Needs Based On: Current weight Gm Protein/ Kg : 1.5 - 2.0 Protein Provided: 109 - 145 Protein Needs Based On: [place] weight Metabolic Cart Study Results: Current Nutrition [...] Restrictive Safety Strategies Flowsheets (Taken 06/17/2025 08) Home Health Specialist Protection: IV pole/bag removed from visual field [...] AM EDT Associated Problem(s): Prostate CA (CMS/HCC) 06/12: robot-assisted radical prostatectomy, complicated by severed [...] 35.0-39.9) with comorbidity (CMS/HCC); Onmechanically assisted ventilation ([facility]); Alcohol use disorder; Leukocytosis, unspecified type 06/17/25 [...] nare 06/13/25 1438 Left nare 3 GCS: [place] Coma Scale Score: 11 Review of Systems [...] Admission: No WBC Count (10*3/uL) Date/Time Value 06/12/20257 11.67 (H) Tmax 100*F Multifactorial etiology in [...] Note Eber Lowe 70 y.o. male CSN: [id number] Admission: 06/12/2025 10:20 AM Primary Problem: Prostate CA (CMS/HCC) Building Associate reviewed chart and spoke with patient's spouse-Javon [phone] to complete this Initial Case Management Assessment. PCP: Murray Prajapati MD Emergency Contact: Extended Emergency Contact Information Primary Emergency Contact: JAVON LOWE Mobile Relation: Spouse Backhaul Driver needed? No Insurance: Primary Visit Coverage Payer Plan Sponsor Code Group Number Group Name [place]IK[place] [id number] Primary Visit Coverage Subscriber Subscriber ID Subscriber Name Subscriber SSN Subscriber Address [id number] JAVON LOWE [id number] [place] [address] Patient information: Primary Caregiver: Self Support System: Immediate family Daily Living Activities: Functional Status: Independent Living Arrangements: Spouse/Significant other Type of Residence: Private residence, Single Level [address] [place] [address] Current DME: Equipment Currently Used at Home: none Income Information: Income Source: Retired Housing Circumstances-Z Codes: Patient Referred to: Anticipated Discharge Date: 06/20/25 Patient's Discharge Goal: Patient/Family Anticipates Transition to: home Assistance Available at Discharge: spouse Discharge Transport: spouse Follow Up Transport: spouse Home Health / Home Infusion / Outpatient Dialysis Services: None reported. Living Will/Advance Directive/Power of Street Department Dispatcher /Guardian: None reported. Additional Comments: CM introduced herself and explain its role. CM confirmed pt's home address and contact information.Pt lives with spouse in a 1 1/2 level home, doesn't use any DME equipment or have any HH services. Per pt's spouse, she will provide assistance as needed as well as transportation. In??KELLY Baltazar, position description manager Social Drivers of Health Food Insecurity: [...] Social Connections: Low Risk (12/08/2023) Received from [employer] ([place], [place], [place], [place]) Family and Community Support Help with Day to Day Activities: Not on file Feeling Lonely or Isolated: Not on file Financial Resource Strain: Not on file * Assessment & Plan Note - Lillian Carrera PA - 06/16/2025 10:57 AM EDT Associated Problem(s): Prostate CA (CMS/HCC) 06/12: robot-assisted radical prostatectomy, complicated by severed [...] Other secondary hypertension; On mechanically assisted ventilation (CMS/HCC); Alcohol use diso rder; Leukocytosis, unspecified type [...] nare 06/13/25 1438 Left nare 2 GCS: [place] Coma Scale Score: 11 Review of Systems [...] rounds. JENNIFER Lee * Hospital Course - [facility] - 06/16/2025 8:04 AM EDT Eber Lowe is a 70 y.o. male with PMH unfavorable intermediate risk prostate cancer, GG3 diffusely on the left, PSA 4.7 who presented to [facility] ED for planned surgical intervention. They [...] Ken MD - 06/16/2025 7:49 AM EDT [facility] Inpatient Progress Note Primary Attending: Dyllan [...] Type: Bulb Size (Fr.): 10 Fr. Drain [place] Size (mL): 100 mL Urethral Catheter Double-lumen;Non-latex [...] -daily AM labs -agree with abdominal binder -[facility] -urology will closely follow -c/w scrotal [...] Shayna Crawford - 06/15/2025 10:59 AM EDT [facility] Inpatient Progress Note Primary Attending: Dyllan [...] Type: Bulb Size (Fr.): 10 Fr. Drain [place] Size (mL): 100 mL Urethral Catheter Double-lumen;Non-latex 20 Fr. (Active) Placement Date/Time: 06/12/25 183 Inserted by: ST Denis, under Dr. Strup's supervision Hand Hygiene Completed: Yes Catheter Type: [...] -daily AM labs -agree with abdominal binder -[facility] -urology will closely follow -c/w scrotal [...] 9:12 AM EDTAssociated Problem(s): Prostate CA (CMS/HCC) 06/12: robot-assisted radical prostatectomy, complicated by severed [...] PEEP (cmH2O): 10 S VT: [address] SUP: 8 cm H20 Insp Time (sec): 0.9 sec Vent Mode: PS/CPAP FiO2 (%): 80 % S RR: 14 S VT: [address] SUP: 8 cm H20 MAP (cm H2O): [...] Ken MD - 06/14/2025 11:56 AM EDT [facility] Inpatient Progress Note Primary Attending: Dyllan [...] Type: Bulb Size (Fr.): 10 Fr. Drain [place] Size (mL): 100 mL Urethral Catheter Double-lumen;Non-latex [...] -daily AM labs -agree with abdominal binder -[facility] -urology will closely follow Ariadna [place] [...] Note Eber Lowe 70 y.o. male CSN: [id number] Room/Bed 239/239A Nutrition evaluation type: follow-up Reason [...] Supplemental oxygen O2 Delivery Method: Mechanical ventilator [place] Coma Scale Score: 10 Héctor/Cubbin Pressure Risk [...] 35.43 Weight Evaluation: Obese-Class 2 (BMI 35-39.9) [place] Body Weight (kg): 72.7 Percent [place] Body Weight: 150 Adjusted Body Weight (kg): 82 Estimated Needs: Kcal/ K - 20 Kcal Provided: 1635 - 2180 Kcal Needs Based On: Current weight Gm Protein/ Kg : 1.5 - 2.0 Protein Provided: 109 - 145 Protein Needs Based On: [place] weight Metabolic Cart Study Results: Current Nutrition [...] renal lab trends Acuity Level: 5 Lillian Martin, RD, LD Weekend Dietitian [1] Past Medical [...] y.o. male admitted for Prostate CA ([facility]). Pharmacy was consulted for management [...] therapy with primary service. Thank you, Sarah Haynes. Lisbeth, [facility] Available via [employer] * Care Plan - Belkys Dowell RN [...] Intervention: Optimize Nutrition Delivery Flowsheets (Taken 06/14/2025 103) Nutrition Support Management: weight trending reviewed Goal: [...] 9:59 AM EDTAssociated Problem(s): Prostate CA (CMS/HCC) 06/12: robot-assisted radical prostatectomy, complicated by severed [...] continue to decrease FiO2 as able. GCS: Sherri Coma Scale [...] COMMUNICATION: Per this written report. Drafted by Brain Thompson MD on 06/14/2025 4:29 AM Final [...] AM EDT Associated Problem(s): Prostate CA (CMS/HCC) 06/12: robot-assisted radical prostatectomy, complicated by severed [...] were present on rounds. 06/13/25 Eber Lowe is a 70 y.o. male [...] 06/12/25 2125 Radial less than 1 GCS: Sherri Coma Scale Score: 10 Review [...] ear normal. Nose: Nose normal. Mouth/Throat: Lips: Orrum. Mouth: Mucous membranes are moist. Pharynx: Oropharynx [...] aroused. Results Review {Vanishing Link Review Results :[id number] I have reviewed the latest lab and [...] Note Eber Lowe 70 y.o. male CSN: [id number] Room/Bed 239/239A Nutrition evaluation type: assessment Reason for evaluation: [facility] course: 70 y.o male admitted [...] Supplemental oxygen O2 Delivery Method: Mechanical ventilator [place] Coma Scale Score: 10 [facility] Risk Score: 26 Edema: Generalized, Right [...] 35.43 Weight Evaluation: Obese-Class 2 (BMI 35-39.9) [place] Body Weight (kg): 72.7 Percent [place] Body Weight: 150 Adjusted Body Weight (kg): 82 Estimated Needs: Kcal/ K - 20 Kcal Provided: 1635 - 2180 Kcal Needs Based On: Current weight Gm Protein/ Kg : 1.5 - 2.0 Protein Provided: 109 - 145 Protein Needs Based On: [place] weight Metabolic Cart Study Results: Current Nutrition [...] norepinephrine, 0-0.4 mcg/kg/min, Last Rate: 0.02 mcg/kg/min (06/13/251199) propofol, 10-50 mcg/kg/min, Last Rate: 15 mcg/kg/min [...] Galicia MD - 06/13/2025 9:00 AM EDT [facility] In[facility] Progress Note Primary Attending: Dyllan [...] Type: Bulb Size (Fr.): 10 Fr. Drain [place] Size (mL): 100 mL Urethral Catheter Double-lumen;Non-latex [...] -daily AM labs -agree with abdominal binder -[facility] -urology will closely follow Gregory Galicia [...] return to initiate IA/SDOH. In??s KELLY Mistry, position description manager * Procedures - Tati Pedroza RN [...] PM EDT Associated Problem(s): Prostate CA (CMS/HCC) 06/12: robot-assisted radical prostatectomy, complicated by severed umbilical vein, 1.3L blood loss Management per primary * Assessment & Plan Note - Raymond Katz APRN - 06/12/2025 10:29 PM EDT Associated Problem(s): On mechanically assisted ventilation ([facility]) (Resolved 06/18/2025) Intubated for procedure Wean FiO2 [...] labs * Assessment & Plan Note - Rayomnd Katz APRN - 06/12/2025 10:29 PM EDT [...] medications as appropriate * H&P - Raymond Kazt APRN - 06/12/2025 10:22 PM EDTAssociated Order(s): [...] 1 tablet by mouth daily. 04/10/23 Yes Provider, MD Albert carvedilol (Coreg) 3.125 MG tablet Take 1 tablet by mouth 2 times a day. 03/28/25 06/12/25 Yes Virginia Campa MD furosemide (Lasix) 40 MG tablet Take 1 tablet by mouth daily. Yes Albert Salinas MD sldwwnoamlmt-qrru-hygnajsu-folic acid (Centrum) chewable tablet Chew 1 tablet [...] mupirocin (Bactroban) 2 % ointment 03/26/25 06/06/25 Albert Salinas MD Social History: Pt has reports [...] above or in HPI. Vital signs: Vitals: 06/12/255 BP: Pulse: 76 Resp: 12 Temp: SpO2: [...] ear normal. Nose: Nose normal. Mouth/Throat: Lips: Orrum. Mouth: Mucous membranes are moist. Pharynx: Oropharynx [...] 1. GCS motor subscore is 6. Comments: 4/6/1T off sedation Labs in last 18 hours: [...] are consistent with and integrated into the [place] [employer] Liver Diseases [...] No Known Allergies * Care Plan - Brashears, Sue J - 06/12/2025 9:59 PM EDT Problem: Mechanical [...] PM EDT Operative Note Date: 06/12/25 Location: [facility] Name: Eber Lowe, : 1955, Diagnoses: Pre-op Diagnosis Prostate CA (CMS/HCC) Post-op Diagnosis Prostate CA (CMS/HCC) Procedure(s): Robotic assisted laparoscopic radical prostatectomy Robotic assisted laparoscopic bilateral pelvic lymph node dissection Laparotomy with ligation of dilated umbilical veins Attending Surgeon(s): * Dyllan Paul - Primary Potato Sorter(s): * Adam Earl MD - Resident - [...] is having surgery for Prostate CA ([facility]). Narrative: The patient is brought [...] points were confirmed we placed an 18 Czech catheter into the bladder and the bladder [...] The nerve bundles had been displaced anterior andlateral. We are able to take down the pedicle with bipolar cautery and cold scissors and then work a bit more anteriorly and released the bundles [...] and they were divided sharply any remaining attachmentsto the rectum. We inspected the prostate all [...] the vessels and then placed with the prost ate. The left side node packet was taken in similar fashion again using the iliac vein the pubic bone distally sidewall laterally obturator nerve and vessels posteriorly and the bifurcation of the vessels proximally. No grossly suspicious nodes were noted. We then placed the prostate and the nodes and a Endo-Catch bag for later removal. We irrigated and aspirated the pelvis hemostasis was good wethen on noticed some oozing from the dorsal vein which seemed to persist and additional 0 Vicryl suture was then placed to help control this with a Martinez catheter in place to make sure it could well identify the urethra. We then inspected the bladder neck and did not need reconstruction. We performed the urethrovesical anastomosis using a double-armed running 3-0 V lock suture the posterior wall came together nicely under no tension. The anterior wall was then run as well with a new 20 Czech catheter being placed into the bladder before complete closure. We tested the anastomosis by irrigating the bladder and everything appeared dry. We then did our final hemostasis inspection everything appeared dry. We then directed our attention to closure a Héctor- Yung drain was placed through the lateral port site and into the pelvis the [...] then removed the midline port did notice somemild oozing in the port site we extended the incision laterally and prepared to move the specimen. And doing so once we had opened the transverse incision were preparing for extraction we noted briskvenous bleeding coming up from the transverse incision. We were not sure whether this was from on recognized venous injury in the pelvis were the source was. I attempted to identify this but again the venous bleeding was rather brisk. We lost several 100 cc of blood and a very short period of time.I was concerned about large vessel injury therefore I placed pressure with 2 sponges on the openingcompressing the midline venous structures. This achieved hemostasis and the patient remained stable. Anesthesia then placed a larger bore IVs and we waited until we have blood available. Transfusion was started again our concern was for a [...] Indeed we identified in a hurry the lar ge bore twin umbilical veins which were bleeding profusely. I was able to gain control these both the manually and then with a Michelle clamp. Once the Michelle clamp controlled the this bleeding we inspected the abdomen and again everything in the pelvis and the posterior retroperitoneum was dry. We anddid not need to extend our laparotomy distally be below the umbilicus we had been prepared to do so. We then ligated the umbilical veins 1st with a large 0 Vicryl tie together then individually with 2-0 Vicryl sutures. We placed a 3rd running [...] veins distally were controlled as well. With 0Vicryl suture. We then again irrigated and inspected again pelvis and retroperitoneum were dry the umbilical veins had been controlled. We then noted the patient had umbilical hernia this fat was reduced and the umbilical hernia was incorporated into our closure we used a 1. PDS to close the fasciaand then the subcutaneous tissue both above and below the umbilicus where it had been incised were closed with 2-0 Vicryl. The skin was closed [...] 06/12/2025 3:20 PM EDT Date: 06/12/25 Location: [facility] Name: Eber Lowe, : 1955, Diagnoses: Pre-op Diagnosis Prostate CA (CMS/HCC) Post-op Diagnosis Prostate CA (CMS/HCC) Procedure(s): Robotic-assisted laparoscopic radical prostatectomy Bilateral pelvic lymph node dissection Attending Surgeon(s): * Dyllan Paul - Primary Potato Sorter(s): * Adam Earl MD - Resident - [...] from the original note were not included. [facility] History and Physical 06/12/25 HPI: Eber [...] % shampoo Melatonin 10 mg, Nightly PRN mkofnasduqqs-bhnr-rthvisuh-folic acid (Centrum) chewable tablet 1 tablet, Daily [...] since 05/13/25 Location Start Date End Date [place] ([facility]) 06/01/25 06/02/25 ROS: 14 point review of [...] Date Cancer (CMS/HCC) january 26, 2025 Cirrhosis ([facility]) 2021 History of methicillin resistant Staphylococcus aureus [...] Description 08/14/2025 12:25 PM EDT Hospital Encounter [facility] [address] [place] [address] Dyllan Paul MD [address] [place] [id number] 08/14/2025 12:25 PM EDT - 08/14/2025 1:55 PM EDT Surgery [facility] [address] [place] [address] Dyllan Paul MD [address] [place] [address] URETEROSCOPY, WITH LASER LITHOTRIPSY [37051 (CPT )] 10/28/2025 8:00 AM EST [facility] Visit [facility] [address] [place] [address] Pavan Aldrich MD [address] [place] [address] Scheduled Procedures Name Priority Associated Diagnoses Date/Ti me URETEROSCOPY, WITH LASER LITHOTRIPSY Ureteral stone 08/14/2025 12:25 PM EDT Scheduled Referrals Name Type Priority Associated [...] UNSOLICITED RESULTS Routine 06/18/2025 12:[address] CRITICAL CARE, E/M 30-74 MINUTES Routine 06/18/2025 9:49 AM EDT Prostate CA (CMS/HCC) Alcohol use disorder Leukocytosis, unspecified type Severe obesity (BMI 35.0-39.9) with comorbidity ([facility]) SCC (squamous cell carcinoma), leg, [...] AMMONIA, PLASMA Routine 06/17/2025 8:[address] CRITICAL CARE, E/M 30-74 MINUTES Routine 06/17/2025 8:36 AM EDT Prostate CA ([facility]) Alcohol use disorder On mechanically assisted ventilation ([facility]) Leukocytosis, unspecified type Hyperbilirubinemi a Electrolyte abnormality Severe obesity (BMI 35.0-39.9) with comorbidity ([facility]) SCC (squamous cell carcinoma), leg, left XR [...] UNSOLICITED RESULTS Routine 06/16/2025 11:[address] CRITICAL CARE, E/M 30-74 MINUTES Routine 06/16/2025 10:30 AM EDT Prostate CA ([facility]) Alcohol use disorder On mechanically assisted ventilation ([facility]) Leukocytosis, unspecified type Hypocalcemia Electrolyte abnormality Severe obesity (BMI 35.0-39.9) with comorbidity ([facility]) SCC (squamous cell carcinoma), leg, [...] RANDOM, PLASMA Routine 06/15/2025 11:[address] CRITICAL CARE, E/M 30-74 MINUTES Routine 06/15/2025 [...] TIDAL CO2 MONITORING Routine 8:00 PM EDT VENTILATOR - ADULT Routine 06/14/2025 8:00 PM EDT BLOOD GAS PANEL, ARTERIAL Timed 2024 6:07 PM EDT VENTILATOR - ADULT Routine 06/14/2025 3:26 PM EDT VENTILATOR - ADULT Routine 06/14/2025 3:26 PM EDT BLOOD GAS PANEL, ARTERIAL Timed 2024 12:[address] CRITICAL CARE, E/M 30-74 MINUTES Routine 06/14/2025 [...] PANEL, ARTERIAL Timed 2024 11:[address] CRITICAL CARE, ADDL 30 MIN Routine 06/13/2025 10:48 AM EDT Prostate CA (CMS/HCC) Alcohol use disorder On mechanically assisted ventilation (CMS/HCC) Leukocytosis, unspecified type Hypotension due to hypovolemia Hypocalcemia Hyperbilirubinemi a Electrolyte abnormality END TIDAL CO2 MONITORING Routine 8:00 AM EDT SBT - SPONTANEOUS BREATHING [...] PANEL, ARTERIAL Routine 2024 10:[address] CRITICAL CARE, ADDL 30 MIN Routine 06/12/2025 10:22 PM EDT Prostate CA (CMS/HCC) CT CRITICAL CARE, ADDL 30 MIN Routine 06/12/2025 10:22 PM EDT Prostate CA (CMS/HCC) CT CRITICAL CARE, ADDL 30 MIN Routine 06/12/2025 [...] 06/12/20 6:07 PM EDT Prostate CA (CMS/HCC) CT LAP,PROSTATECTOMY,RADICAL ,W/NERVE SPARE,INCL ROBOTIC 06/12/2025 2:26 PM [...] following split bolus administration of IV contrast, [id number], 150 mL. Reformatted images in the coronal [...] in the right mid ureter (series 3 [id number]). Punctate bilateral nonobstructing renal calculi are also [...] Jorge Sosa MD on 07/22/2025 8:50 AM us Trice Herrera MD IMG CT PROCEDURES Final Resul t * [facility] ([facility]) Analysis (06/25/2025 7:00 AM EDT) Calculi Mass 394 mg 06/28/2025 4:02 PM EDT [facility] Calculi Description See Note 06/28/2025 4:02 PM EDT [facility] ([facility]) [facility]culi Composition See Note 06/28/2025 4:02 PM EDT [facility]) Calculus Non-blood Collection / Unknown 06/25/2025 7:00 AM EDT 06/25/2025 8:10 AM EDT Narrative [facility]) - 06/28/2025 4:02 PM EDT Specimen consists [...] composition determined by FTIR analysis. Performed By: [facility] [address] [place] [address] Set Rider: Sotero Banuelos MD, PhD CLIA Number: [id number] us Dyllan Paul MD LAB REF LAB BLOOD AND FLUID O RD Final Result [facility]) [address] [place] [address] * (ABNORMAL) Hemogram (CBC) (06/25/2025 5:50 AM EDT) WBC Count 15.32(H) 3.70 - 10.30 10*3/uL LAB HEMATOLOGY METHOD 06/25/2025 6:59 AM EDT [facility] RBC Count 3.44(L) 4.60 - 6.10 10*6/uL LAB HEMATOLOGY METHOD 06/25/2025 6:59 AM EDT [facility] HGB 11.2(L) 13.7 - 17.5 g/dL LAB HEMATOLOGY METHOD 06/25/2025 6:59 AM EDT [facility] HCT 32.7(L) 40.0 - 51.0 % LAB HEMATOLOGY METHOD 06/25/2025 6:59 AM EDT [facility] Platelet Count 114(L) 155 - 369 10*3/uL LAB HEMATOLOGY METHOD 06/25/2025 6:59 AM EDT [facility] MCV 95 79 - 98 fL LAB HEMATOLOGY METHOD 06/25/2025 6:59 AM EDT [facility] MCH 32.6(H) 26.0 - 32.0 pg LAB HEMATOLOGY METHOD 06/25/2025 6:59 AM EDT [facility] MCHC 34.3 30.7 - 35.5 g/dL LAB HEMATOLOGY METHOD 06/25/2025 6:59 AM EDT [facility] RDW 16.7(H) 11.5 - 14.5 % LAB HEMATOLOGY METHOD 06/25/2025 6:59 AM EDT [facility] MPV 11.7 8.8 - 12.5 fL LAB HEMATOLOGY METHOD 06/25/2025 6:59 AM EDT [facility] [facility] nRBC 0.0 <=0.0 per 100 WBCs LAB HEMATOLOGY METHOD 06/25/2025 6:59 AM EDT [facility] Blood Venous blood specimen / Unknown Venipuncture / Unknown 06/25/2025 5:50 AM EDT 06/25/2025 6:48 AM EDT us Dyllan Paul MD LAB BLOOD ORDERABLES Final Re sult [facility] [address] [place] [address] * (ABNORMAL) Comprehensive metabolic panel (06/25/2025 5:50 AM EDT) Glucose, Plasma 84 74 - 99 mg/dL 06/25/2025 7:20 AM EDT [facility] BUN, Plasma 30(H) 8 - 23 mg/dL 06/25/2025 7:20 AM EDT [facility] Creatinine, Plasma 1.14 0.70 - 1.20 mg/dL 06/25/2025 7:20 AM EDT [facility] BUN/Creatinine Ratio 26 06/25/2025 7:20 AM EDT [facility] Sodium, Plasma 134(L) 136 - 145 mmol/L 06/25/2025 7:20 AM EDT [facility] Potassium, Plasma 3.4(L) 3.6 - 4.9 mmol/L 06/25/2025 7:20 AM EDT [facility] Chloride, Plasma 100 97 - 107 mmol/L 06/25/2025 7:20 AM EDT [facility] CO2, Plasma 26 22 - 29 mmol/L 06/25/2025 7:20 AM EDT [facility] Anion Gap 8 6 - 16 mmol/L 06/25/2025 7:20 AM EDT [facility] Total Calcium, Plasma 8.1(L) 8.9 - 10.2 mg/dL 06/25/2025 7:20 AM EDT [facility] Total Protein 4.5(L) 6.3 - 7.9 g/dL 06/25/2025 7:20 AM EDT [facility] Albumin, Plasma 2.4(L) 3.5 - 5.2 g/dL 06/25/2025 7:20 AM EDT [facility] AST, Plasma 77(H) 10 - 50 U/L 06/25/2025 7:20 AM EDT [facility] ALT, Plasma 45 10 - 50 U/L 06/25/2025 7:20 AM EDT [facility] Alkaline Phosphatase, Plasma 129(H) 40 - 115 U/L 06/25/2025 7:20 AM EDT [facility] Total Bilirubin, Plasma 1.7(H) 0.2 - 1.1 mg/dL 06/25/2025 7:20 AM EDT [facility] eGFRcr 69.2 mL/min/1.7 3m*2 06/25/2025 7:20 AM EDT [facility] Comment:Reported eGFRcr in m L/min/1.73m2 is based the CKD-EPI 2020 equation that does not use a race coefficient. Blood Venous blood specimen / Unknown Venipuncture / Unknown 06/25/2025 5:50 AM EDT 06/25/2025 6:48 AM EDT us Dyllan Paul MD LAB BLOOD ORDERABLES Final Re sult [facility] [address] [place] [address] * Phosphorus (06/25/2025 5:50 AM EDT) Phosphorus, Plasma 3.5 2.5 - 4.5 mg/dL 06/25/2025 7:20 AM EDT [facility] Blood Venous blood specimen / Unknown Venipuncture / Unknown 06/25/2025 5:50 AM EDT 06/25/2025 6:48 AM EDT us Dyllan Paul MD LAB BLOOD ORDERABLES Final Re sult [facility] [address] [place] [address] * Magnesium (06/25/2025 5:50 AM EDT) Magnesium, Plasma 2.2 1.9 - 2.4 mg/dL 06/25/2025 7:20 AM EDT [facility] Blood Venous blood specimen / Unknown Venipuncture / Unknown 06/25/2025 5:50 AM EDT 06/25/2025 6:48 AM EDT us Dyllan Paul MD LAB BLOOD ORDERABLES Final Re sult Performing Organization Address City/[facility]/[place] [address] * VAS US Venous Duplex Lower Extremity [...] Eber Gilbert MD on 06/24/2025 4:57 PM Dyllan Paul MD CV VASCULAR PROCEDURES Final Result * Potassium level repeated 2 hours after the total replacement is completed (06/24/2025 12:35 PM EDT) Potassium, Plasma 3.6 3.6 - 4.9 mmol/L 06/24/2025 1:21 PM EDT [facility] Blood Venous blood specimen / Unknown Venipuncture / Unknown 06/24/2025 12:35 PM EDT 06/24/2025 12:58 PM EDT Camden Hilario MD LAB BLOOD ORDERABLES Final Result Performing Organization Address [facility] Co de Phone Number [facility] [address] [place] [address] * Peripheral blood smear, pathologist interpretation (06/24/2025 2:14 AM EDT) Pathologist [facility] Clinical Diagnosis, Peripheral Smear Leukocytosis, recent surgery (prostatectomy for prostate cancer), history of cirrhosis LAB HEMATOLOGY METHOD 06/24/2025 3:21 PM EDT [facility] Interpretation , Peripheral Smear Moderate leukocytosis with neutrophilia, left shift and toxic granulations. Few atypical small lymphocytes with mature condensed chromatin. Mild anemia with anisocytosis. Mild thrombocytopeni a. See comment 06/24/2025 3:21 PM EDT [facility] Pathologist Signature, Peripheral Smear 06/24/2025 3:21 PM EDT [facility] Comment:Reviewed by: Sue Stapleton MD Blood Venous blood specimen / Unknown Venipuncture / Unknown 06/24/2025 2:14 AM EDT 06/24/2025 2:19 AM EDT Narrative [facility] - 06/24/2025 3:21 PM EDT The lymphocyte morphology is concerning for chronic lymphoproliferative disorder. A flow cytometry immunophenotyping is suggested, if clinically indicated. Dyllan Paul MD LAB PATHOLOGY ORDERABLES Francia l Result Performing Organization Address City/[facility]/ZIP Co de Phone Number [facility] [address] [place] [address] * (ABNORMAL) CBC and differential (06/24/2025 2:14 AM EDT) WBC Count 20.07(H) 3.70 - 10.30 10*3/uL LAB HEMATOLOGY METHOD 06/24/2025 3:40 AM EDT [facility] RBC Count 3.59(L) 4.60 - 6.10 10*6/uL LAB HEMATOLOGY METHOD 06/24/2025 3:40 AM EDT [facility] HGB 11.8(L) 13.7 - 17.5 g/dL LAB HEMATOLOGY METHOD 06/24/2025 3:40 AM EDT [facility] HCT 34.1(L) 40.0 - 51.0 % LAB HEMATOLOGY METHOD 06/24/2025 3:40 AM EDT [facility] Platelet Count 128(L) 155 - 369 10*3/uL LAB HEMATOLOGY METHOD 06/24/2025 3:40 AM EDT [facility] MCV 95 79 - 98 fL LAB HEMATOLOGY METHOD 06/24/2025 3:40 AM EDT [facility] MCH 32.9(H) 26.0 - 32.0 pg LAB HEMATOLOGY METHOD 06/24/2025 3:40 AM EDT [facility] MCHC 34.6 30.7 - 35.5 g/dL LAB HEMATOLOGY METHOD 06/24/2025 3:40 AM EDT [facility] RDW 16.2(H) 11.5 - 14.5 % LAB HEMATOLOGY METHOD 06/24/2025 3:40 AM EDT [facility] MPV 11.2 8.8 - 12.5 fL LAB HEMATOLOGY METHOD 06/24/2025 3:40 AM EDT [facility] nRBC 0.0 <=0.0 per 100 WBCs LAB HEMATOLOGY METHOD 06/24/2025 3:40 AM EDT [facility] Differential Type Automated LAB HEMATOLOGY METHOD 06/24/2025 3:40 AM EDT [facility] Neutrophils % 45 % LAB HEMATOLOGY METHOD 06/24/2025 3:40 AM EDT [facility] Lymphocytes % 39 % LAB HEMATOLOGY METHOD 06/24/2025 3:40 AM EDT [facility] Monocytes % 9 % LAB HEMATOLOGY METHOD 06/24/2025 3:40 AM EDT [facility] Eosinophils % 5 % LAB HEMATOLOGY METHOD 06/24/2025 3:40 AM EDT [facility] Basophils % 1 % LAB HEMATOLOGY METHOD 06/24/2025 3:40 AM EDT [facility] Immature Granulocytes % 1 % LAB HEMATOLOGY METHOD 06/24/2025 3:40 AM EDT [facility] Neutrophils Absolute 9.32(H) 1.60 - 6.10 10*3/uL LAB HEMATOLOGY METHOD 06/24/2025 3:40 AM EDT [facility] Lymphocytes Absolute 7.73(H) 1.20 - 3.90 10*3/uL LAB HEMATOLOGY METHOD 06/24/2025 3:40 AM EDT [facility] Monocytes Absolute 1.80(H) 0.30 - 0.90 10*3/uL LAB HEMATOLOGY METHOD 06/24/2025 3:40 AM EDT [facility] Eosinophils Absolute 0.90(H) 0.00 - 0.50 10*3/uL LAB HEMATOLOGY METHOD 06/24/2025 3:40 AM EDT [facility] Basophils Absolute 0.17(H) 0.00 - 0.10 10*3/uL LAB HEMATOLOGY METHOD 06/24/2025 3:40 AM EDT [facility] Immature Granulocytes Absolute 0.15(H) 0.00 - 0.06 10*3/uL LAB HEMATOLOGY METHOD 06/24/2025 3:40 AM EDT [facility] Blood Venous blood specimen / Unknown Venipuncture / Unknown 06/24/2025 2:14 AM EDT 06/24/2025 2:19 AM EDT Narrative [facility] - 06/24/2025 3:40 AM EDT Therapeutic decision making should be based on absolute values, rather than percentages. us Dyllan Paul MD LAB BLOOD ORDERABLES Final Re sult [facility] [address] [place] [address] * (ABNORMAL) Comprehensive metabolic panel (06/24/2025 2:14 AM EDT) Glucose, Plasma 105(H) 74 - 99 mg/dL 06/24/2025 2:46 AM EDT [facility] BUN, Plasma 33(H) 8 - 23 mg/dL 06/24/2025 2:46 AM EDT [facility] Creatinine, Plasma 1.20 0.70 - 1.20 mg/dL 06/24/2025 2:46 AM EDT [facility] BUN/Creatinine Ratio 28 06/24/2025 2:46 AM EDT [facility] Sodium, Plasma 135(L) 136 - 145 mmol/L 06/24/2025 2:46 AM EDT [facility] Potassium, Plasma 3.3(L) 3.6 - 4.9 mmol/L 06/24/2025 2:46 AM EDT [facility] Chloride, Plasma 101 97 - 107 mmol/L 06/24/2025 2:46 AM EDT [facility] CO2, Plasma 24 22 - 29 mmol/L 06/24/2025 2:46 AM EDT [facility] Anion Gap 10 6 - 16 mmol/L 06/24/2025 2:46 AM EDT [facility] Total Calcium, Plasma 8.3(L) 8.9 - 10.2 mg/dL 06/24/2025 2:46 AM EDT [facility] Total Protein 4.9(L) 6.3 - 7.9 g/dL 06/24/2025 2:46 AM EDT [facility] Albumin, Plasma 2.5(L) 3.5 - 5.2 g/dL 06/24/2025 2:46 AM EDT [facility] AST, Plasma 82(H) 10 - 50 U/L 06/24/2025 2:46 AM EDT [facility] Comment:Hemolyzed, result ma y be falsely increased. ALT, Plasma 50 10 - 50 U/L 06/24/2025 2:46 AM EDT [facility] Alkaline Phosphatase, Plasma 142(H) 40 - 115 U/L 06/24/2025 2:46 AM EDT [facility] Total Bilirubin, Plasma 1.7(H) 0.2 - 1.1 mg/dL 06/24/2025 2:46 AM EDT [facility] eGFRcr 65.1 mL/min/1.7 3m*2 06/24/2025 2:46 AM EDT [facility] Comment:Reported eGFRcr in m L/min/1.73m2 is based the CKD-EPI 2020 equation that does not use a race coefficient. Blood Venous blood specimen / Unknown Venipuncture / Unknown 06/24/2025 2:14 AM EDT 06/24/2025 2:19 AM EDT us Dyllan Paul MD LAB BLOOD ORDERABLES Final Re sult Performing Organization Address [facility] Co de Phone Number [facility] [address] [place] [address] * Phosphorus (06/24/2025 2:14 AM EDT) Phosphorus, Plasma 3.4 2.5 - 4.5 mg/dL 06/24/2025 2:46 AM EDT [facility] Blood Venous blood specimen / Unknown Venipuncture / Unknown 06/24/2025 2:14 AM EDT 06/24/2025 2:19 AM EDT us Dyllan Paul MD LAB BLOOD ORDERABLES Final Re sult Performing Organization Address [facility] [place] [address] * Magnesium (06/24/2025 2:14 AM EDT) Magnesium, Plasma 2.2 1.9 - 2.4 mg/dL 06/24/2025 2:46 AM EDT [facility] Blood Venous blood specimen / Unknown Venipuncture / Unknown 06/24/2025 2:14 AM EDT 06/24/2025 2:19 AM EDT us Dyllan Paul MD LAB BLOOD ORDERABLES Final Re sult Performing Organization Address [facility] de Phone Number [facility] [address] [place] [address] * Clostridiodes (Clostridium) difficile PCR (06/23/2025 9:17 AM EDT) C difficile PCR toxin B gene DNA Result Not Detected Not Detected 06/23/2025 11:44 AM EDT [facility] Stool Rectum structure / Unknown Non-blood Collection / Unknown 06/23/2025 9:17 AM EDT 06/23/2025 10:27 AM EDT Narrative [facility] - 06/23/2025 11:44 AM [...] MICROBIOLOGY - GENERAL OR DERABLES Final Result [facility] [address] [place] [address] * (ABNORMAL) Comprehensive metabolic panel (06/23/2025 3:41 AM EDT) Glucose, Plasma 110(H) 74 - 99 mg/dL 06/23/2025 4:31 AM EDT [facility] BUN, Plasma 35(H) 8 - 23 mg/dL 06/23/2025 4:31 AM EDT [facility] Creatinine, Plasma 1.17 0.70 - 1.20 mg/dL 06/23/2025 4:31 AM EDT [facility] BUN/Creatinine Ratio 30 06/23/2025 4:31 AM EDT [facility] Sodium, Plasma 134(L) 136 - 145 mmol/L 06/23/2025 4:31 AM EDT [facility] Potassium, Plasma 3.6 3.6 - 4.9 mmol/L 06/23/2025 4:31 AM EDT [facility] Chloride, Plasma 101 97 - 107 mmol/L 06/23/2025 4:31 AM EDT [facility] CO2, Plasma 23 22 - 29 mmol/L 06/23/2025 4:31 AM EDT [facility] Anion Gap 10 6 - 16 mmol/L 06/23/2025 4:31 AM EDT [facility] Total Calcium, Plasma 8.5(L) 8.9 - 10.2 mg/dL 06/23/2025 4:31 AM EDT [facility] Total Protein 4.9(L) 6.3 - 7.9 g/dL 06/23/2025 4:31 AM EDT [facility] Albumin, Plasma 2.5(L) 3.5 - 5.2 g/dL 06/23/2025 4:31 AM EDT [facility] AST, Plasma 86(H) 10 - 50 U/L 06/23/2025 4:31 AM EDT [facility] Comment:Hemolyzed, result ma y be falsely increased. ALT, Plasma 52(H) 10 - 50 U/L 06/23/2025 4:31 AM EDT [facility] Alkaline Phosphatase, Plasma 138(H) 40 - 115 U/L 06/23/2025 4:31 AM EDT [facility] Total Bilirubin, Plasma 2.3(H) 0.2 - 1.1 mg/dL 06/23/2025 4:31 AM EDT [facility] eGFRcr 67.1 mL/min/1.7 3m*2 06/23/2025 4:31 AM EDT [facility] Comment:Reported eGFRcr in m L/min/1.73m2 is based the CKD-EPI 2020 equation that does not use a race coefficient. Blood Venous blood specimen / Unknown Venipuncture / Unknown 06/23/2025 3:41 AM EDT 06/23/2025 4:00 AM EDT Dyllan Paul MD LAB BLOOD ORDERABLES Final Re sult Performing Organization Address City/[facility]/ZIP Co de Phone Number [facility] [address] [place] [address] * Phosphorus (06/23/2025 3:41 AM EDT) Phosphorus, Plasma 3.3 2.5 - 4.5 mg/dL 06/23/2025 4:31 AM EDT [facility] Blood Venous blood specimen / Unknown Venipuncture / Unknown 06/23/2025 3:41 AM EDT 06/23/2025 4:00 AM EDT Dyllan Paul MD LAB BLOOD ORDERABLES Final Re sult Performing Organization Address City/[facility]/ZIP Co de Phone Number [facility] [address] [place] [address] * Magnesium (06/23/2025 3:41 AM EDT) Magnesium, Plasma 2.1 1.9 - 2.4 mg/dL 06/23/2025 4:31 AM EDT [facility] Blood Venous blood specimen / Unknown Venipuncture / Unknown 06/23/2025 3:41 AM EDT 06/23/2025 4:00 AM EDT us Dyllan Paul MD LAB BLOOD ORDERABLES Final Re sult [facility] [address] [place] [address] * (ABNORMAL) Hemogram (CBC) (06/23/2025 3:41 AM EDT) WBC Count 24.07(H) 3.70 - 10.30 10*3/uL LAB HEMATOLOGY METHOD 06/23/2025 4:07 AM EDT [facility] RBC Count 3.66(L) 4.60 - 6.10 10*6/uL LAB HEMATOLOGY METHOD 06/23/2025 4:07 AM EDT [facility] HGB 12.3(L) 13.7 - 17.5 g/dL LAB HEMATOLOGY METHOD 06/23/2025 4:07 AM EDT [facility] HCT 34.6(L) 40.0 - 51.0 % LAB HEMATOLOGY METHOD 06/23/2025 4:07 AM EDT [facility] Platelet Count 141(L) 155 - 369 10*3/uL LAB HEMATOLOGY METHOD 06/23/2025 4:07 AM EDT [facility] MCV 95 79 - 98 fL LAB HEMATOLOGY METHOD 06/23/2025 4:07 AM EDT [facility] MCH 33.6(H) 26.0 - 32.0 pg LAB HEMATOLOGY METHOD 06/23/2025 4:07 AM EDT [facility] MCHC 35.5 30.7 - 35.5 g/dL LAB HEMATOLOGY METHOD 06/23/2025 4:07 AM EDT [facility] RDW 15.9(H) 11.5 - 14.5 % LAB HEMATOLOGY METHOD 06/23/2025 4:07 AM EDT [facility] MPV 11.4 8.8 - 12.5 fL LAB HEMATOLOGY METHOD 06/23/2025 4:07 AM EDT [facility] nRBC 0.0 <=0.0 per 100 WBCs LAB HEMATOLOGY METHOD 06/23/2025 4:07 AM EDT [facility] Blood Venous blood specimen / Unknown Venipuncture / Unknown 06/23/2025 3:41 AM EDT 06/23/2025 4:00 AM EDT Dyllan Paul MD LAB BLOOD ORDERABLES Final Re sult Performing Organization Address [facility] Co de Phone Number [facility] [address] [place] [address] * (ABNORMAL) Prothrombin Time/INR (06/23/2025 3:41 AM EDT) Prothrombin Time 18.6(H) 12.0 - 14.3 sec LAB COAGULATION METHOD 06/23/2025 4:17 AM EDT [facility] INR 1.5(H) 0.9 - 1.1 LAB COAGULATION METHOD 06/23/2025 4:17 AM EDT [facility] Blood Venous blood specimen / Unknown Venipuncture / Unknown 06/23/2025 3:41 AM EDT 06/23/2025 4:00 AM EDT Narrative [facility] - 06/23/2025 4:17 AM EDT OPTIMAL INR RANGES FOR PATIENT ON ORAL ANTICOAGULANT THERAPY Prevention of venous thromboembolism INR 2.0 to 3.0 In patients with heart disease: Atrial fibrillation INR 2.0 to 3.0 Valvular heart disease INR 2.0 to 3.0 Tissue heart valves INR 2.0 to 3.0 Mechanical prosthetic valves INR 2.5 to 3.5 Prevention of recurrent MO INR 2.5 to 3.5 Dyllan Paul MD LAB BLOOD ORDERABLES Final Re sult Performing Organization Address City/[facility]/ZIP Co de Phone Number [facility] [address] [place] [address] * CT Angio Pulmonary Embolism (06/22/2025 2:26 [...] Shannan Chong MD on 06/22/2025 3:28 PM us Dyllan Paul MD IMG CT PROCEDURES Final Resul t * Troponin T, High Sensitivity, 2 Hour, Plasma (06/22/2025 1:57 PM EDT) Troponin T, High Sensitivity, 2 Hour 16 <19 ng/L 06/22/2025 2:32 PM EDT [facility] Troponin Delta Interpretation Not Calculated 06/22/2025 2:32 PM EDT [facility] Comment:Specimen not collect ed within acceptable timeframe. Delta will not be calculated. Blood Venous blood specimen / Unknown Venipuncture / Unknown 06/22/2025 1:57 PM EDT 06/22/2025 2:04 PM EDT us Dyllan Paul MD LAB BLOOD ORDERABLES Final Re sult Performing Organization Address [facility]/ZIP Co de Phone Number [facility] [address] [place] [address] * Lactate, venous (06/22/2025 12:33 PM EDT) Pathologist [facility] Lactate, Venous, Whole Blood 2.1 0.5 - 2.2 mmol/L LAB HEMATOLOGY METHOD 06/22/2025 12:47 PM EDT [facility] Blood Venous blood specimen / Unknown Venipuncture / Unknown 06/22/2025 12:33 PM EDT 06/22/2025 12:45 PM EDT Dyllan Paul MD LAB BLOOD ORDERABLES Final Re sult Performing Organization Address [facility]/ZIP Co de Phone Number [facility] [address] [place] [address] * Sedimentation Rate, Automated (06/22/2025 12:33 PM EDT) [facility] Sedimentation Rate 13 <20 mm/hr 2024 12:58 PM EDT [facility] Blood Venous blood specimen / Unknown Venipuncture / Unknown 06/22/2025 12:33 PM EDT 06/22/2025 12:44 PM EDT Dyllan Paul MD LAB BLOOD ORDERABLES Final Re sult Performing Organization Address [facility] Co de Phone Number [facility] [address] [place] [address] * (ABNORMAL) C-reactive protein (06/22/2025 12:33 PM EDT) Pathologist [facility] CRP, Plasma 58.6(H) <=8.0 mg/L 06/22/2025 1:19 PM EDT [facility] Blood Venous blood specimen / Unknown Venipuncture / Unknown 06/22/2025 12:33 PM EDT 06/22/2025 12:44 PM EDT Narrative [facility] - 06/22/2025 1:19 PM EDT This CRP test is appropriate for assessment of infection, systemic inflammation and/or tissue injury. To assess cardiovascular disease risk order high sensitivity CRP (CRPH). Dyllan Paul MD LAB BLOOD ORDERABLES Final Re sult Performing Organization Address [facility] Co de Phone Number [facility] [address] [place] [address] * (ABNORMAL) Procalcitonin (06/22/2025 12:33 PM EDT) Procalcitonin, Plasma 0.70(H) <0.09 ng/mL 06/22/2025 1:19 PM EDT [facility] Blood Venous blood specimen / Unknown Venipuncture / Unknown 06/22/2025 12:33 PM EDT 06/22/2025 12:44 PM EDT Narrative [facility] - 06/22/2025 1:19 PM [...] predict 28 day mortality risk. Please consult [email or web address]-[email or web address] for more information. Test performed at [facility]. Dyllan Paul MD LAB BLOOD ORDERABLES Final Re sult Performing Organization Address [facility]/ZIP Co de Phone Number [facility] [address] [place] [address] * Blood Culture (Aerobic/Anaerobet Set) (06/22/2025 12:33 PM EDT) Culture No growth at day 5 KEELY 06/27/2025 1:01 PM EDT [facility] Blood Venous blood specimen / Unknown Venipuncture / Unknown 06/22/2025 12:33 PM EDT 06/22/2025 12:47 PM EDT us Dyllan Paul MD LAB MICROBIOLOGY - GENERAL OR DERABLES Final Result Performing Organization Address [facility]/ZIP Co de Phone Number [facility] [address] [place] [address] * Troponin T, High Sensitivity, 0 Hour Plasma, Reflex to 2 Hour (06/22/2025 12:33 PM EDT) Troponin T, High Sensitivity, 0 Hour 14 <19 ng/L 06/22/2025 1:19 PM EDT [facility] Blood Venous blood specimen / Unknown Venipuncture / Unknown 06/22/2025 12:33 PM EDT 06/22/2025 12:44 PM EDT us Dyllan Paul MD LAB BLOOD ORDERABLES Final Re sult Performing Organization Address [facility] Co de Phone Number [facility] [address] [place] [address] * CT Abdomen Pelvis w IV Contrast [...] - 899 pg/mL 06/22/2025 12:26 PM EDT [facility] Blood Venous blood specimen / Unknown Venipuncture / Unknown 06/22/2025 1:57 AM EDT 06/22/2025 2:09 AM EDT us Dyllan Paul MD LAB BLOOD ORDERABLES Final Re sult [facility] [address] [place] [address] * (ABNORMAL) Comprehensive metabolic panel (06/22/2025 1:57 AM EDT) Glucose, Plasma 107(H) 74 - 99 mg/dL 06/22/2025 2:38 AM EDT [facility] BUN, Plasma 39(H) 8 - 23 mg/dL 06/22/2025 2:38 AM EDT [facility] Creatinine, Plasma 1.15 0.70 - 1.20 mg/dL 06/22/2025 2:38 AM EDT [facility] BUN/Creatinine Ratio 34 06/22/2025 2:38 AM EDT [facility] Sodium, Plasma 139 136 - 145 mmol/L 06/22/2025 2:38 AM EDT [facility] Potassium, Plasma 3.5(L) 3.6 - 4.9 mmol/L 06/22/2025 2:38 AM EDT [facility] Chloride, Plasma 103 97 - 107 mmol/L 06/22/2025 2:38 AM EDT [facility] CO2, Plasma 24 22 - 29 mmol/L 06/22/2025 2:38 AM EDT [facility] Anion Gap 12 6 - 16 mmol/L 06/22/2025 2:38 AM EDT [facility] Total Calcium, Plasma 8.2(L) 8.9 - 10.2 mg/dL 06/22/2025 2:38 AM EDT [facility] Total Protein 4.4(L) 6.3 - 7.9 g/dL 06/22/2025 2:38 AM EDT [facility] Albumin, Plasma 2.6(L) 3.5 - 5.2 g/dL 06/22/2025 2:38 AM EDT [facility] AST, Plasma 78(H) 10 - 50 U/L 06/22/2025 2:38 AM EDT [facility] Comment:Hemolyzed, result ma y be falsely increased. ALT, Plasma 44 10 - 50 U/L 06/22/2025 2:38 AM EDT [facility] Alkaline Phosphatase, Plasma 130(H) 40 - 115 U/L 06/22/2025 2:38 AM EDT [facility] Total Bilirubin, Plasma 2.4(H) 0.2 - 1.1 mg/dL 06/22/2025 2:38 AM EDT [facility] eGFRcr 68.5 mL/min/1.7 3m*2 06/22/2025 2:38 AM EDT [facility] Comment:Reported eGFRcr in m L/min/1.73m2 is based the CKD-EPI 2020 equation that does not use a race coefficient. Blood Venous blood specimen / Unknown Venipuncture / Unknown 06/22/2025 1:57 AM EDT 06/22/2025 2:09 AM EDT us Dyllan Paul MD LAB BLOOD ORDERABLES Final Re sult [facility] [address] [place] [address] * Phosphorus (06/22/2025 1:57 AM EDT) Phosphorus, Plasma 3.2 2.5 - 4.5 mg/dL 06/22/2025 2:38 AM EDT [facility] Blood Venous blood specimen / Unknown Venipuncture / Unknown 06/22/2025 1:57 AM EDT 06/22/2025 2:09 AM EDT us Dyllan Paul MD LAB BLOOD ORDERABLES Final Re sult Performing Organization Address [facility]/ZIP Co de Phone Number [facility] [address] [place] [address] * Magnesium (06/22/2025 1:57 AM EDT) Pathologist [facility] Magnesium, Plasma 2.1 1.9 - 2.4 mg/dL 06/22/2025 2:38 AM EDT [facility] Blood Venous blood specimen / Unknown Venipuncture / Unknown 06/22/2025 1:57 AM EDT 06/22/2025 2:09 AM EDT us Dyllan Paul MD LAB BLOOD ORDERABLES Final Re sult Performing Organization Address [facility] de Phone Number [facility] [address] [place] [address] * (ABNORMAL) Hemogram (CBC) (06/22/2025 1:57 AM EDT) Pathologist [facility] WBC Count 16.88(H) 3.70 - 10.30 10*3/uL LAB HEMATOLOGY METHOD 06/22/2025 2:20 AM EDT [facility] RBC Count 3.61(L) 4.60 - 6.10 10*6/uL LAB HEMATOLOGY METHOD 06/22/2025 2:20 AM EDT [facility] HGB 11.6(L) 13.7 - 17.5 g/dL LAB HEMATOLOGY METHOD 06/22/2025 2:20 AM EDT [facility] HCT 34.2(L) 40.0 - 51.0 % LAB HEMATOLOGY METHOD 06/22/2025 2:20 AM EDT [facility] Platelet Count 119(L) 155 - 369 10*3/uL LAB HEMATOLOGY METHOD 06/22/2025 2:20 AM EDT [facility] MCV 95 79 - 98 fL LAB HEMATOLOGY METHOD 06/22/2025 2:20 AM EDT [facility] MCH 32.1(H) 26.0 - 32.0 pg LAB HEMATOLOGY METHOD 06/22/2025 2:20 AM EDT [facility] MCHC 33.9 30.7 - 35.5 g/dL LAB HEMATOLOGY METHOD 06/22/2025 2:20 AM EDT [facility] RDW 15.8(H) 11.5 - 14.5 % LAB HEMATOLOGY METHOD 06/22/2025 2:20 AM EDT [facility] MPV 11.8 8.8 - 12.5 fL LAB HEMATOLOGY METHOD 06/22/2025 2:20 AM EDT [facility] nRBC 0.2(H) <=0.0 per 100 WBCs LAB HEMATOLOGY METHOD 06/22/2025 2:20 AM EDT [facility] Blood Venous blood specimen / Unknown Venipuncture / Unknown 06/22/2025 1:57 AM EDT 06/22/2025 2:09 AM EDT Dyllan Paul MD LAB BLOOD ORDERABLES Final Re sult [facility] [address] [place] [address] * (ABNORMAL) Prothrombin Time/INR (06/22/2025 1:57 AM EDT) [facility] Prothrombin Time 18.3(H) 12.0 - 14.3 sec LAB COAGULATION METHOD 06/22/2025 2:29 AM EDT [facility] INR 1.5(H) 0.9 - 1.1 LAB COAGULATION METHOD 06/22/2025 2:29 AM EDT [facility] Blood Venous blood specimen / Unknown Venipuncture / Unknown 06/22/2025 1:57 AM EDT 06/22/2025 2:09 AM EDT Narrative [facility] - 06/22/2025 2:29 AM EDT OPTIMAL INR RANGES FOR PATIENT ON ORAL ANTICOAGULANT THERAPY Prevention of venous thromboembolism INR 2.0 to 3.0 In patients with heart disease: Atrial fibrillation INR 2.0 to 3.0 Valvular heart disease INR 2.0 to 3.0 Tissue heart valves INR 2.0 to 3.0 Mechanical prosthetic valves INR 2.5 to 3.5 Prevention of recurrent MO INR 2.5 to 3.5 us Dyllan Paul MD LAB BLOOD ORDERABLES Final Re sult [facility] [address] [place] [address] * (ABNORMAL) Comprehensive metabolic panel (06/21/2025 3:25 AM EDT) Pathologist [facility] Glucose, Plasma 105(H) 74 - 99 mg/dL 06/21/2025 4:03 AM EDT [facility] BUN, Plasma 46(H) 8 - 23 mg/dL 06/21/2025 4:03 AM EDT [facility] Creatinine, Plasma 1.24(H) 0.70 - 1.20 mg/dL 06/21/2025 4:03 AM EDT [facility] BUN/Creatinine Ratio 37 06/21/2025 4:03 AM EDT [facility] Sodium, Plasma 138 136 - 145 mmol/L 06/21/2025 4:03 AM EDT [facility] Potassium, Plasma 3.5(L) 3.6 - 4.9 mmol/L 06/21/2025 4:03 AM EDT [facility] Chloride, Plasma 102 97 - 107 mmol/L 06/21/2025 4:03 AM EDT [facility] CO2, Plasma 24 22 - 29 mmol/L 06/21/2025 4:03 AM EDT [facility] Anion Gap 12 6 - 16 mmol/L 06/21/2025 4:03 AM EDT [facility] Total Calcium, Plasma 8.3(L) 8.9 - 10.2 mg/dL 06/21/2025 4:03 AM EDT [facility] Total Protein 4.8(L) 6.3 - 7.9 g/dL 06/21/2025 4:03 AM EDT [facility] Albumin, Plasma 2.5(L) 3.5 - 5.2 g/dL 06/21/2025 4:03 AM EDT [facility] AST, Plasma 73(H) 10 - 50 U/L 06/21/2025 4:03 AM EDT [facility] ALT, Plasma 41 10 - 50 U/L 06/21/2025 4:03 AM EDT [facility] Alkaline Phosphatase, Plasma 125(H) 40 - 115 U/L 06/21/2025 4:03 AM EDT [facility] Total Bilirubin, Plasma 3.4(H) 0.2 - 1.1 mg/dL 06/21/2025 4:03 AM EDT [facility] eGFRcr 62.5 mL/min/1.7 3m*2 06/21/2025 4:03 AM EDT [facility] Comment:Reported eGFRcr in m L/min/1.73m2 is based the CKD-EPI 2020 equation that does not use a race coefficient. Blood Venous blood specimen / Unknown Venipuncture / Unknown 06/21/2025 3:25 AM EDT 06/21/2025 3:33 AM EDT Dyllan Paul MD LAB BLOOD ORDERABLES Final Re sult Performing Organization Address City/[facility]/ZIP Co de Phone Number [facility] [address] [place] [address] * Phosphorus (06/21/2025 3:25 AM EDT) Phosphorus, Plasma 3.7 2.5 - 4.5 mg/dL 06/21/2025 4:03 AM EDT [facility] Blood Venous blood specimen / Unknown Venipuncture / Unknown 06/21/2025 3:25 AM EDT 06/21/2025 3:33 AM EDT Dyllan Paul MD LAB BLOOD ORDERABLES Final Re sult Performing Organization Address City/[facility]/ZIP Co de Phone Number [facility] [address] [place] [address] * Magnesium (06/21/2025 3:25 AM EDT) Magnesium, Plasma 2.1 1.9 - 2.4 mg/dL 06/21/2025 4:03 AM EDT [facility] Blood Venous blood specimen / Unknown Venipuncture / Unknown 06/21/2025 3:25 AM EDT 06/21/2025 3:33 AM EDT us Dyllan Paul MD LAB BLOOD ORDERABLES Final Re sult [facility] [address] [place] [address] * (ABNORMAL) Hemogram (CBC) (06/21/2025 3:25 AM EDT) [facility] WBC Count 15.49(H) 3.70 - 10.30 10*3/uL LAB HEMATOLOGY METHOD 06/21/2025 3:43 AM EDT [facility] RBC Count 3.73(L) 4.60 - 6.10 10*6/uL LAB HEMATOLOGY METHOD 06/21/2025 3:43 AM EDT [facility] HGB 12.3(L) 13.7 - 17.5 g/dL LAB HEMATOLOGY METHOD 06/21/2025 3:43 AM EDT [facility] HCT 35.1(L) 40.0 - 51.0 % LAB HEMATOLOGY METHOD 06/21/2025 3:43 AM EDT [facility] Platelet Count 107(L) 155 - 369 10*3/uL LAB HEMATOLOGY METHOD 06/21/2025 3:43 AM EDT [facility] MCV 94 79 - 98 fL LAB HEMATOLOGY METHOD 06/21/2025 3:43 AM EDT [facility] MCH 33.0(H) 26.0 - 32.0 pg LAB HEMATOLOGY METHOD 06/21/2025 3:43 AM EDT [facility] MCHC 35.0 30.7 - 35.5 g/dL LAB HEMATOLOGY METHOD 06/21/2025 3:43 AM EDT [facility] RDW 15.9(H) 11.5 - 14.5 % LAB HEMATOLOGY METHOD 06/21/2025 3:43 AM EDT [facility] MPV 11.8 8.8 - 12.5 fL LAB HEMATOLOGY METHOD 06/21/2025 3:43 AM EDT [facility] nRBC 0.2(H) <=0.0 per 100 WBCs LAB HEMATOLOGY METHOD 06/21/2025 3:43 AM EDT [facility] Blood Venous blood specimen / Unknown Venipuncture / Unknown 06/21/2025 3:25 AM EDT 06/21/2025 3:33 AM EDT Dyllan Paul MD LAB BLOOD ORDERABLES Final Re sult Performing Organization Address City/[facility]/ZIP Co de Phone Number [facility] [address] [place] [address] * (ABNORMAL) Prothrombin Time/INR (06/21/2025 3:25 AM EDT) Prothrombin Time 18.7(H) 12.0 - 14.3 sec LAB COAGULATION METHOD 06/21/2025 4:27 AM EDT [facility] INR 1.5(H) 0.9 - 1.1 LAB COAGULATION METHOD 06/21/2025 4:27 AM EDT [facility] Blood Venous blood specimen / Unknown Venipuncture / Unknown 06/21/2025 3:25 AM EDT 06/21/2025 3:32 AM EDT Narrative [facility] - 06/21/2025 4:27 AM EDT OPTIMAL INR RANGES FOR PATIENT ON ORAL ANTICOAGULANT THERAPY Prevention of venous thromboembolism INR 2.0 to 3.0 In patients with heart disease: Atrial fibrillation INR 2.0 to 3.0 Valvular heart disease INR 2.0 to 3.0 Tissue heart valves INR 2.0 to 3.0 Mechanical prosthetic valves INR 2.5 to 3.5 Prevention of recurrent [place] INR 2.5 to 3.5 Dyllan Paul MD LAB BLOOD ORDERABLES Final Re sult Performing Organization Address City/[facility]/ZIP Co de Phone Number [facility] [address] [place] [address] * Creatinine, Drain Fluid (06/20/2025 1:43 PM EDT) Creatinine, Fluid 1.35 mg/dL 06/20/2025 3:10 PM EDT [facility] Fluid Drainage fluid specimen / Unknown 06/20/2025 1:43 PM EDT 06/20/2025 2:15 PM EDT Narrative [facility] - 06/20/2025 3:10 PM EDT Reference Values: No established reference interval. Results should be interpreted in comparison to the concentration in blood and in conjunction with the clinical context. This test was developed and its performance characteristics determined by [facility]. The [employer] [...] FLUIDS AND STOOLS OR DERABLES Final Result [facility] [address] [place] [address] * (ABNORMAL) Hemogram (CBC) (06/20/2025 11:12 AM EDT) WBC Count 14.75(H) 3.70 - 10.30 10*3/uL LAB HEMATOLOGY METHOD 06/20/2025 11:31 AM EDT [facility] RBC Count 3.67(L) 4.60 - 6.10 10*6/uL LAB HEMATOLOGY METHOD 06/20/2025 11:31 AM EDT [facility] HGB 12.2(L) 13.7 - 17.5 g/dL LAB HEMATOLOGY METHOD 06/20/2025 11:31 AM EDT [facility] HCT 35.0(L) 40.0 - 51.0 % LAB HEMATOLOGY METHOD 06/20/2025 11:31 AM EDT [facility] Platelet Count 103(L) 155 - 369 10*3/uL LAB HEMATOLOGY METHOD 06/20/2025 11:31 AM EDT [facility] MCV 95 79 - 98 fL LAB HEMATOLOGY METHOD 06/20/2025 11:31 AM EDT [facility] MCH 33.2(H) 26.0 - 32.0 pg LAB HEMATOLOGY METHOD 06/20/2025 11:31 AM EDT [facility] MCHC 34.9 30.7 - 35.5 g/dL LAB HEMATOLOGY METHOD 06/20/2025 11:31 AM EDT [facility] RDW 15.9(H) 11.5 - 14.5 % LAB HEMATOLOGY METHOD 06/20/2025 11:31 AM EDT [facility] MPV 11.4 8.8 - 12.5 fL LAB HEMATOLOGY METHOD 06/20/2025 11:31 AM EDT [facility] nRBC 0.1(H) <=0.0 per 100 WBCs LAB HEMATOLOGY METHOD 06/20/2025 11:31 AM EDT [facility] Blood Venous blood specimen / Unknown Venipuncture / Unknown 06/20/2025 11:12 AM EDT 06/20/2025 11:19 AM EDT us Dyllan Paul MD LAB BLOOD ORDERABLES Final Re sult [facility] [address] [place] [address] * (ABNORMAL) Blood gas panel, venous (06/20/2025 11:12 AM EDT) pH, Venous 7.44(H) 7.32 - 7.43 LAB HEMATOLOGY METHOD 06/20/2025 11:23 AM EDT [facility] pCO2, Venous 38(L) 40 - 55 mmHg LAB HEMATOLOGY METHOD 06/20/2025 11:23 AM EDT [facility] pO2, Venous 60(H) 25 - 40 mmHg LAB HEMATOLOGY METHOD 06/20/2025 11:23 AM EDT [facility] SO2, Measured, Venous 88(H) 65 - 80 % LAB HEMATOLOGY METHOD 06/20/2025 11:23 AM EDT [facility] Base Excess, Venous 1.5 -2.0 - 3.0 mmol/L LAB HEMATOLOGY METHOD 06/20/2025 11:23 AM EDT [facility] Bicarbonate, Calculated, Venous 26 22 - 26 mmol/L LAB HEMATOLOGY METHOD 06/20/2025 11:23 AM EDT [facility] Hematocrit, Whole Blood 32.5(L) 40.0 - 51.0 % LAB HEMATOLOGY METHOD 06/20/2025 11:23 AM EDT [facility] Sodium, Whole Blood 135(L) 136 - 145 mmol/L LAB HEMATOLOGY METHOD 06/20/2025 11:23 AM EDT [facility] Potassium, Whole Blood 2.8(L) 3.6 - 4.9 mmol/L LAB HEMATOLOGY METHOD 06/20/2025 11:23 AM EDT [facility] Chloride, Whole Blood 101 97 - 107 mmol/L LAB HEMATOLOGY METHOD 06/20/2025 11:23 AM EDT [facility] Glucose, Whole Blood 164(H) 74 - 99 mg/dL LAB HEMATOLOGY METHOD 06/20/2025 11:23 AM EDT [facility] Lactate, Venous, Whole Blood 2.5(H) 0.5 - 2.2 mmol/L LAB HEMATOLOGY METHOD 06/20/2025 11:23 AM EDT [facility] Ionized Calcium, Whole Blood 4.4(L) 4.6 - 5.1 mg/dL LAB HEMATOLOGY METHOD 06/20/2025 11:23 AM EDT [facility] Blood Venous blood specimen / Unknown Venipuncture / Unknown 06/20/2025 11:12 AM EDT 06/20/2025 11:20 AM EDT Dyllan Paul MD LAB BLOOD ORDERABLES Final Re sult [facility] [address] [place] [address] * [place] Cystogram (06/20/2025 10:01 AM EDT) [...] radiograph from June 14, 2025. FINDINGS: On medical radiation therapist images, there are 3 rounded calcifications overlying [...] 2025. Abdominal radiograph from 2024. FINDINGS: On medical radiation therapist images, there are 3 rounded calcifications overlying [...] signing this report, I, the attending physician, jennifer I have personally reviewed the images/data for [...] - 99 mg/dL 06/20/2025 2:42 AM EDT [facility] BUN, Plasma 50(H) 8 - 23 mg/dL 06/20/2025 2:42 AM EDT [facility] Creatinine, Plasma 1.28(H) 0.70 - 1.20 mg/dL 06/20/2025 2:42 AM EDT [facility] BUN/Creatinine Ratio 39 06/20/2025 2:42 AM EDT [facility] Sodium, Plasma 139 136 - 145 mmol/L 06/20/2025 2:42 AM EDT [facility] Potassium, Plasma 4.2 3.6 - 4.9 mmol/L 06/20/2025 2:42 AM EDT [facility] Comment:Hemolyzed, result ma y be falsely increased. Chloride, Plasma 105 97 - 107 mmol/L 06/20/2025 2:42 AM EDT [facility] CO2, Plasma 21(L) 22 - 29 mmol/L 06/20/2025 2:42 AM EDT [facility] Anion Gap 13 6 - 16 mmol/L 06/20/2025 2:42 AM EDT [facility] Total Calcium, Plasma 8.6(L) 8.9 - 10.2 mg/dL 06/20/2025 2:42 AM EDT [facility] Total Protein 4.9(L) 6.3 - 7.9 g/dL 06/20/2025 2:42 AM EDT [facility] Albumin, Plasma 2.5(L) 3.5 - 5.2 g/dL 06/20/2025 2:42 AM EDT [facility] AST, Plasma 83(H) 10 - 50 U/L 06/20/2025 2:42 AM EDT [facility] Comment:Hemolyzed, result ma y be falsely increased. ALT, Plasma 36 10 - 50 U/L 06/20/2025 2:42 AM EDT [facility] Comment:Hemolyzed, result ma y be falsely increased or decreased. Alkaline Phosphatase, Plasma 133(H) 40 - 115 U/L 06/20/2025 2:42 AM EDT [facility] Total Bilirubin, Plasma 2.8(H) 0.2 - 1.1 mg/dL 06/20/2025 2:42 AM EDT [facility] eGFRcr 60.2 mL/min/1.7 3m*2 06/20/2025 2:42 AM EDT [facility] Comment:Reported eGFRcr in m L/min/1.73m2 is based the CKD-EPI 2020 equation that does not use a race coefficient. Blood Venous blood specimen / Unknown Venipuncture / Unknown 06/20/2025 2:07 AM EDT 06/20/2025 2:14 AM EDT us Dyllan Paul MD LAB BLOOD ORDERABLES Final Re sult [facility] [address] [place] [address] * (ABNORMAL) Phosphorus (06/20/2025 2:07 AM EDT) Phosphorus, Plasma 4.7(H) 2.5 - 4.5 mg/dL 06/20/2025 2:42 AM EDT [facility] Blood Venous blood specimen / Unknown Venipuncture / Unknown 06/20/2025 2:07 AM EDT 06/20/2025 2:14 AM EDT Dyllan Paul MD LAB BLOOD ORDERABLES Final Re sult [facility] [address] [place] [address] * Magnesium (06/20/2025 2:07 AM EDT) Magnesium, Plasma 2.0 1.9 - 2.4 mg/dL 06/20/2025 2:42 AM EDT [facility] Blood Venous blood specimen / Unknown Venipuncture / Unknown 06/20/2025 2:07 AM EDT 06/20/2025 2:14 AM EDT Dyllan Paul MD LAB BLOOD ORDERABLES Final Re sult [facility] [address] [place] [address] * (ABNORMAL) Prothrombin Time/INR (06/20/2025 2:07 AM EDT) Prothrombin Time 16.9(H) 12.0 - 14.3 sec LAB COAGULATION METHOD 06/20/2025 2:31 AM EDT [facility] INR 1.3(H) 0.9 - 1.1 LAB COAGULATION METHOD 06/20/2025 2:31 AM EDT [facility] Blood Venous blood specimen / Unknown Venipuncture / Unknown 06/20/2025 2:07 AM EDT 06/20/2025 2:14 AM EDT Narrative [facility] - 06/20/2025 2:31 AM EDT OPTIMAL INR RANGES FOR PATIENT ON ORAL ANTICOAGULANT THERAPY Prevention of venous thromboembolism INR 2.0 to 3.0 In patients with heart disease: Atrial fibrillation INR 2.0 to 3.0 Valvular heart disease INR 2.0 to 3.0 Tissue heart valves INR 2.0 to 3.0 Mechanical prosthetic valves INR 2.5 to 3.5 Prevention of recurrent [place] INR 2.5 to 3.5 us Dyllan Paul MD LAB BLOOD ORDERABLES Final Re sult Performing Organization Address City/[facility] [place] [address] * Urinalysis Microscopic Examination (06/19/2025 2:16 PM EDT) Urine Urine specimen obtained by clean catch procedure / Unknown Non-blood Collection / Unknown 06/19/2025 2:16 PM EDT 06/19/2025 2:23 PM EDT Dyllan Paul MD LAB URINE ORDERABLES Final Re sult Performing Organization Address [facility] [place] [address] * Osmolality, urine (06/19/2025 2:16 PM EDT) Osmolality, Urine 645 50 - 1,200 mOsm/kg 06/19/2025 3:14 PM EDT [facility] Urine Urine specimen obtained by clean catch procedure / Unknown Non-blood Collection / Unknown 06/19/2025 2:16 PM EDT 06/19/2025 2:31 PM EDT us Dyllan Paul MD LAB URINE ORDERABLES Final Re sult Performing Organization Address City/[facility] Co de Phone Number [facility] [address] [place] [address] * Creatinine, urine, random (06/19/2025 2:16 PM EDT) Creatinine, Urine 99 mg/dL 06/19/2025 3:06 PM EDT [facility] Urine Urine specimen obtained by clean catch procedure / Unknown Non-blood Collection / Unknown 06/19/2025 2:16 PM EDT 06/19/2025 2:22 PM EDT us Dyllan Paul MD LAB URINE ORDERABLES Final Re sult Performing Organization Address City/[facility]/ZIP Co de Phone Number [facility] [address] [place] [address] * Sodium, urine, random (06/19/2025 2:16 PM EDT) Sodium, Urine <20 mmol/L 06/19/2025 3:06 PM EDT [facility] Urine Urine specimen obtained by clean catch procedure / Unknown Non-blood Collection / Unknown 06/19/2025 2:16 PM EDT 06/19/2025 2:22 PM EDT us Dyllan Paul MD LAB URINE ORDERABLES Final Re sult Performing Organization Address City/[facility]/ZIP Co de Phone Number [facility] [address] [place] [address] * (ABNORMAL) Urinalysis with reflex microscopic (Culture NOT Included) (06/19/2025 2:16 PM EDT) Color, Urine Yellow LAB URINALYSIS - AUTOMATED METHOD 06/19/2025 2:33 PM EDT [facility] Clarity, Urine Clear LAB URINALYSIS - AUTOMATED METHOD 06/19/2025 2:33 PM EDT [facility] Spec [place], Urine 1.024 1.005 - 1.030 LAB URINALYSIS - AUTOMATED METHOD 06/19/2025 2:33 PM EDT [facility] pH, Urine 6.0 5.0 - 8.0 LAB URINALYSIS - AUTOMATED METHOD 06/19/2025 2:33 PM EDT [facility] Protein, Urine 30(A) Negative mg/dL LAB URINALYSIS - AUTOMATED METHOD 06/19/2025 2:33 PM EDT [facility] Glucose, Urine Negative Negative mg/dL LAB URINALYSIS - AUTOMATED METHOD 06/19/2025 2:33 PM EDT [facility] Ketones, Urine Trace(A) Negative mg/dL LAB URINALYSIS - AUTOMATED METHOD 06/19/2025 2:33 PM EDT [facility] Blood, Urine Large(A) Negative LAB URINALYSIS - AUTOMATED METHOD 06/19/2025 2:33 PM EDT [facility] Bilirubin, Urine Negative Negative LAB URINALYSIS - AUTOMATED METHOD 06/19/2025 2:33 PM EDT [facility] Urobilinogen, Urine 1.0 0.2 to 1.0 mg/dL LAB URINALYSIS - AUTOMATED METHOD 06/19/2025 2:33 PM EDT [facility] Leukocytes, Urine Small(A) Negative LAB URINALYSIS - AUTOMATED METHOD 06/19/2025 2:33 PM EDT [facility] Nitrite, Urine Negative Negative LAB URINALYSIS - AUTOMATED METHOD 06/19/2025 2:33 PM EDT [facility] RBC, Urine >50(A) 0 to 3 /HPF LAB URINALYSIS - AUTOMATED METHOD 06/19/2025 2:33 PM EDT [facility] WBC, Urine 6 - 10(A) 0 to 5 /HPF LAB URINALYSIS - AUTOMATED METHOD 06/19/2025 2:33 PM EDT [facility] Squamous Epithelial Cells 0 - 2 0 to 5 /HPF LAB URINALYSIS - AUTOMATED METHOD 06/19/2025 2:33 PM EDT [facility] Hyaline Casts 0 - 2 0 to 5 /LPF LAB URINALYSIS - AUTOMATED METHOD 06/19/2025 2:33 PM EDT [facility] Bacteria, Urine Negative Negative LAB URINALYSIS - AUTOMATED METHOD 06/19/2025 2:33 PM EDT [facility] Urine Urine specimen obtained by clean catch procedure / Unknown Non-blood Collection / Unknown 06/19/2025 2:16 PM EDT 06/19/2025 2:23 PM EDT us Dyllan Paul MD LAB URINE ORDERABLES Final Re sult [facility] [address] [place] [address] * (ABNORMAL) POCT glucose meter (06/19/2025 12:41 PM EDT) Pathologist [facility] POCT Glucose 127(H) 74 - 99 mg/dL [...] Comment 06/19/2025 12:43 PM EDT [facility] Armorer Technician ID Sanjuana Sapp 06/19/2025 12:43 PM EDT [facility] Device ID [id number] 06/19/2025 12:43 PM EDT [facility] Specimen Type POC Capillary 06/19/2025 12:43 PM EDT [facility] Blood Capillary blood specimen / Unknown 06/19/2025 12:41 PM EDT 06/19/2025 12:43 PM EDT Dyllan Paul MD LAB POINT OF CARE TE ST DOCKED DEVICE UNSOLICITED RESULTS Final Result Performing Organization Address City/State/[facility] Co de Phone Number [facility] [address] [place] [address] * (ABNORMAL) POCT glucose meter (06/19/2025 9:58 AM EDT) [facility] POCT Glucose 125(H) 74 - 99 mg/dL 06/19/2025 10:00 AM EDT [facility] Comment:Accuracy of a [...] Comment 06/19/2025 10:00 AM EDT [facility] Armorer Technician ID Sanjuana Sapp 06/19/2025 10:00 AM EDT [facility] Device ID [id number] 06/19/2025 10:00 AM EDT [facility] Specimen Type POC Capillary 06/19/2025 10:00 AM EDT [facility] Blood Capillary blood specimen / Unknown 06/19/2025 9:58 AM EDT 06/19/2025 10:00 AM EDT Dyllan Paul MD LAB POINT OF CARE TE ST DOCKED DEVICE UNSOLICITED RESULTS Final Result Performing Organization Address [facility] Co de Phone Number [facility] [address] [place] [address] * (ABNORMAL) POCT glucose meter (06/19/2025 5:49 AM EDT) [facility] POCT Glucose 141(H) 74 - 99 mg/dL 06/19/2025 5:51 AM EDT [facility] Comment:Accuracy of a [...] for testing. Comment 06/19/2025 5:51 AM EDT [facility] Armorer Technician ID Kathy Palmer 06/19/2025 5:51 AM EDT [facility] Device ID [id number] 06/19/2025 5:51 AM EDT [facility] Specimen Type POC Capillary 06/19/2025 5:51 AM EDT [facility] Blood Capillary blood specimen / Unknown 06/19/2025 5:49 AM EDT 06/19/2025 5:51 AM EDT Dyllan Paul MD LAB POINT OF CARE TE ST DOCKED DEVICE UNSOLICITED RESULTS Final Result Performing Organization Address [facility] Co de Phone Number [facility] [address] [place] [address] * (ABNORMAL) Hepatic function panel (06/19/2025 1:00 AM EDT) [facility] Conjugated Bilirubin, Plasma 1.1(H) <=0.3 mg/dL 06/19/2025 6:48 PM EDT [facility] Comment:Hemolyzed, result ma y be falsely decreased. Alkaline Phosphatase, Plasma 179(H) 40 - 115 U/L 06/19/2025 6:48 PM EDT [facility] Total Bilirubin, Plasma 2.5(H) 0.2 - 1.1 mg/dL 06/19/2025 6:48 PM EDT [facility] Albumin, Plasma 2.7(L) 3.5 - 5.2 g/dL 06/19/2025 6:48 PM EDT [facility] Total Protein 5.1(L) 6.3 - 7.9 g/dL 06/19/2025 6:48 PM EDT [facility] [facility] ALT, Plasma 33 10 - 50 U/L 06/19/2025 6:48 PM EDT [facility] AST, Plasma 59(H) 10 - 50 U/L 06/19/2025 6:48 PM EDT [facility] Comment:Hemolyzed, result ma y be falsely increased. Blood Venous blood specimen / Unknown Venipuncture / Unknown 06/19/2025 1:00 AM EDT 06/19/2025 1:04 AM EDT us Anna Armas MD LAB BLOOD ORDERABLES Final Resul t Performing Organization Address City/[facility]/ZIP Co de Phone Number [facility] [address] [place] [address] * (ABNORMAL) Cystatin C (06/19/2025 1:00 AM EDT) Cystatin C 1.9(H) 0.61 - 0.95 mg/L 06/19/2025 2:07 PM EDT [facility] Blood Venous blood specimen / Unknown Venipuncture / Unknown 06/19/2025 1:00 AM EDT 06/19/2025 1:04 AM EDT us Dyllan Paul MD LAB BLOOD ORDERABLES Final Re sult [facility] [address] [place] [address] * (ABNORMAL) Osmolality (06/19/2025 1:00 AM EDT) Osmolality, Serum 311(H) 280 - 301 mOsm/Kg 06/19/2025 1:05 PM EDT [facility] Blood Venous blood specimen / Unknown Venipuncture / Unknown 06/19/2025 1:00 AM EDT 06/19/2025 1:04 AM EDT us Dyllan Paul MD LAB BLOOD ORDERABLES Final Re sult Performing Organization Address [facility] Co de Phone Number [facility] [address] [place] [address] * Phosphorus (06/19/2025 1:00 AM EDT) Phosphorus, Plasma 3.8 2.5 - 4.5 mg/dL 06/19/2025 1:33 AM EDT [facility] Blood Venous blood specimen / Unknown Venipuncture / Unknown 06/19/2025 1:00 AM EDT 06/19/2025 1:04 AM EDT us Dyllan Paul MD LAB BLOOD ORDERABLES Final Re sult Performing Organization Address [facility] [place] [address] * Magnesium (06/19/2025 1:00 AM EDT) Magnesium, Plasma 2.0 1.9 - 2.4 mg/dL 06/19/2025 1:33 AM EDT [facility] Blood Venous blood specimen / Unknown Venipuncture / Unknown 06/19/2025 1:00 AM EDT 06/19/2025 1:04 AM EDT us Dyllan Paul MD LAB BLOOD ORDERABLES Final Re sult Performing Organization Address [facility] [place] [address] * (ABNORMAL) Basic metabolic panel (06/19/2025 1:00 AM EDT) Glucose, Plasma 131(H) 74 - 99 mg/dL 06/19/2025 1:33 AM EDT [facility] BUN, Plasma 51(H) 8 - 23 mg/dL 06/19/2025 1:33 AM EDT [facility] Creatinine, Plasma 1.29(H) 0.70 - 1.20 mg/dL 06/19/2025 1:33 AM EDT [facility] BUN/Creatinine Ratio 40 06/19/2025 1:33 AM EDT [facility] Sodium, Plasma 146(H) 136 - 145 mmol/L 06/19/2025 1:33 AM EDT [facility] Potassium, Plasma 3.6 3.6 - 4.9 mmol/L 06/19/2025 1:33 AM EDT [facility] Chloride, Plasma 111(H) 97 - 107 mmol/L 06/19/2025 1:33 AM EDT [facility] CO2, Plasma 25 22 - 29 mmol/L 06/19/2025 1:33 AM EDT [facility] Anion Gap 10 6 - 16 mmol/L 06/19/2025 1:33 AM EDT [facility] Total Calcium, Plasma 8.9 8.9 - 10.2 mg/dL 06/19/2025 1:33 AM EDT [facility] eGFRcr 59.6 mL/min/1.7 3m*2 06/19/2025 1:33 AM EDT [facility] Comment:Reported eGFRcr in m L/min/1.73m2 is based the CKD-EPI 2020 equation that does not use a race coefficient. Blood Venous blood specimen / Unknown Venipuncture / Unknown 06/19/2025 1:00 AM EDT 06/19/2025 1:04 AM EDT us Dyllan Paul MD LAB BLOOD ORDERABLES Final Re sult [facility] [address] [place] [address] * (ABNORMAL) Hemogram (CBC) (06/19/2025 1:00 AM EDT) WBC Count 13.62(H) 3.70 - 10.30 10*3/uL LAB HEMATOLOGY METHOD 06/19/2025 1:11 AM EDT [facility] RBC Count 3.72(L) 4.60 - 6.10 10*6/uL LAB HEMATOLOGY METHOD 06/19/2025 1:11 AM EDT [facility] HGB 12.1(L) 13.7 - 17.5 g/dL LAB HEMATOLOGY METHOD 06/19/2025 1:11 AM EDT [facility] HCT 36.3(L) 40.0 - 51.0 % LAB HEMATOLOGY METHOD 06/19/2025 1:11 AM EDT [facility] Platelet Count 90(L) 155 - 369 10*3/uL LAB HEMATOLOGY METHOD 06/19/2025 1:11 AM EDT [facility] MCV 98 79 - 98 fL LAB HEMATOLOGY METHOD 06/19/2025 1:11 AM EDT [facility] MCH 32.5(H) 26.0 - 32.0 pg LAB HEMATOLOGY METHOD 06/19/2025 1:11 AM EDT [facility] MCHC 33.3 30.7 - 35.5 g/dL LAB HEMATOLOGY METHOD 06/19/2025 1:11 AM EDT [facility] RDW 16.5(H) 11.5 - 14.5 % LAB HEMATOLOGY METHOD 06/19/2025 1:11 AM EDT [facility] MPV 12.4 8.8 - 12.5 fL LAB HEMATOLOGY METHOD 06/19/2025 1:11 AM EDT [facility] nRBC 0.1(H) <=0.0 per 100 WBCs LAB HEMATOLOGY METHOD 06/19/2025 1:11 AM EDT [facility] Blood Venous blood specimen / Unknown Venipuncture / Unknown 06/19/2025 1:00 AM EDT 06/19/2025 1:04 AM EDT us Dyllan Paul MD LAB BLOOD ORDERABLES Final Re sult [facility] [address] [place] [address] * Ammonia, Plasma (06/19/2025 1:00 AM EDT) Ammonia 45 11 - 51 umol/L 06/19/2025 1:29 AM EDT [facility] Comment:Improper specimen marquez ndling may falsely increase results. Blood Venous blood specimen / Unknown Venipuncture / Unknown 06/19/2025 1:00 AM EDT 06/19/2025 1:04 AM EDT us Michelle Iniguez APRN LAB BLOOD ORDERABLES Final R esult [facility] [address] [place] [address] * (ABNORMAL) POCT glucose meter (06/19/2025 12:59 AM EDT) POCT Glucose 123(H) 74 - 99 mg/dL 06/19/2025 1:03 AM EDT [facility] Comment:Accuracy of a [...] for testing. Comment 06/19/2025 1:03 AM EDT [facility] Armorer Technician ID Kathy Palmer 06/19/2025 1:03 AM EDT [facility] Device ID [id number] 06/19/2025 1:03 AM EDT [facility] Specimen Type POC Venous 06/19/2025 1:03 AM EDT [facility] Blood Venous blood specimen / Unknown 06/19/2025 12:59 AM EDT 06/19/2025 1:03 AM EDT us Dyllan Paul MD LAB POINT OF CARE TE ST DOCKED DEVICE UNSOLICITED RESULTS Final Result Performing Organization Address City/[facility]/ZIP Co de Phone Number [facility] [address] [place] [address] * (ABNORMAL) POCT glucose meter (06/18/2025 5:37 [...] for testing. Comment 06/18/2025 5:39 PM EDT [facility] Armorer Technician ID Lesia Booth 5:39 PM EDT [facility] Device ID [id number] 06/18/2025 5:39 PM EDT [facility] Specimen Type POC Capillary 06/18/2025 5:39 PM EDT [facility] Blood Capillary blood specimen / Unknown 06/18/2025 5:37 PM EDT 06/18/2025 5:39 PM EDT Dyllan Paul MD LAB POINT OF CARE TE ST DOCKED DEVICE UNSOLICITED RESULTS Final Result Performing Organization Address City/State/[facility] Co de Phone Number [facility] [address] [place] [address] * (ABNORMAL) POCT glucose meter (06/18/2025 12:29 PM EDT) [facility] POCT Glucose 153(H) 74 - 99 mg/dL [...] Comment 06/18/2025 12:30 PM EDT [facility] Armorer Technician ID Lesia Booth 12:30 PM EDT [facility] Device ID [id number] 06/18/2025 12:30 PM EDT [facility] Specimen Type POC Capillary 06/18/2025 12:30 PM EDT [facility] Blood Capillary blood specimen / Unknown 06/18/2025 12:29 PM EDT 06/18/2025 12:30 PM EDT us Dyllan Paul MD LAB POINT OF CARE TE ST DOCKED DEVICE UNSOLICITED RESULTS Final Result [facility] [address] [place] [id number] * CT CRITICAL CARE, E/M 30-74 MINUTES (06/18/2025 9:49 [...] POCT glucose meter (06/18/2025 5:50 AM EDT) [facility] POCT Glucose 146(H) 74 - 99 mg/dL 06/18/2025 5:52 AM EDT [facility] Comment:Accuracy of [...] for testing. Comment 06/18/2025 5:52 AM EDT [facility] Armorer Technician ID Aurea Schaefer Elza 06/18/2025 5:52 AM EDT [facility] Device ID [id number] 06/18/2025 5:52 AM EDT [facility] Specimen Type POC Arterial 06/18/2025 5:52 AM EDT [facility] Blood Arterial blood specimen / Unknown 06/18/2025 5:50 AM EDT 06/18/2025 5:52 AM EDT Dyllan Paul MD LAB POINT OF CARE TE ST DOCKED DEVICE UNSOLICITED RESULTS Final Result [facility] [address] [place] [address] * (ABNORMAL) Blood gas panel, arterial (06/18/2025 5:47 AM EDT) pH, Arterial 7.48(H) 7.31 - 7.42 LAB HEMATOLOGY METHOD 06/18/2025 5:59 AM EDT [facility] pCO2, Arterial 36 32 - 45 mmHg LAB HEMATOLOGY METHOD 06/18/2025 5:59 AM EDT [facility] pO2, Arterial 63(L) >70 mmHg LAB HEMATOLOGY METHOD 06/18/2025 5:59 AM EDT [facility] SO2, Measured, Arterial 94 94 - 98 % LAB HEMATOLOGY METHOD 06/18/2025 5:59 AM EDT [facility] Base Excess, Arterial 3.3(H) -2.0 - 3.0 mmol/L LAB HEMATOLOGY METHOD 06/18/2025 5:59 AM EDT [facility] Bicarbonate, Calculated, Arterial 27(H) 22 - 26 mmol/L LAB HEMATOLOGY METHOD 06/18/2025 5:59 AM EDT [facility] Hematocrit, Whole Blood 37.9(L) 40.0 - 51.0 % LAB HEMATOLOGY METHOD 06/18/2025 5:59 AM EDT [facility] Sodium, Whole Blood 153(H) 136 - 145 mmol/L LAB HEMATOLOGY METHOD 06/18/2025 5:59 AM EDT [facility] Potassium, Whole Blood 4.3 3.6 - 4.9 mmol/L LAB HEMATOLOGY METHOD 06/18/2025 5:59 AM EDT [facility] Chloride, Whole Blood 119(H) 97 - 107 mmol/L LAB HEMATOLOGY METHOD 06/18/2025 5:59 AM EDT [facility] Glucose, Whole Blood 138(H) 74 - 99 mg/dL LAB HEMATOLOGY METHOD 06/18/2025 5:59 AM EDT [facility] Ionized Calcium, Whole Blood 5.1 4.6 - 5.1 mg/dL LAB HEMATOLOGY METHOD 06/18/2025 5:59 AM EDT [facility] Lactate, Arterial, Whole Blood 1.6 0.5 - 1.6 mmol/L LAB HEMATOLOGY METHOD 06/18/2025 5:59 AM EDT [facility] Blood Arterial blood specimen / Unknown Arterial Puncture / Unknown 06/18/2025 5:47 AM EDT 06/18/2025 5:57 AM EDT us Michelle Iniguez APRN LAB BLOOD ORDERABLES Final R esult [facility] [address] [place] [address] * (ABNORMAL) POCT glucose meter (06/18/2025 12:10 [...] Comment 06/18/2025 12:12 AM EDT [facility] Armorer Technician ID Aurea Schaefer 06/18/2025 12:12 AM EDT [facility] Device ID [id number] 06/18/2025 12:12 AM EDT [facility] Specimen Type POC Arterial 06/18/2025 12:12 AM EDT [facility] Blood Arterial blood specimen / Unknown 06/18/2025 12:10 AM EDT 06/18/2025 12:12 AM EDT us Dyllan Paul MD LAB POINT OF CARE TE ST DOCKED DEVICE UNSOLICITED RESULTS Final Result Performing Organization Address City/[facility]/ZIP Co de Phone Number [facility] [address] [place] [address] * Phosphorus (06/17/2025 11:58 PM EDT) Phosphorus, Plasma 3.1 2.5 - 4.5 mg/dL 06/18/2025 12:32 AM EDT [facility] Blood Venous blood specimen / Unknown Venipuncture / Unknown 06/17/2025 11:58 PM EDT 06/18/2025 12:05 AM EDT us Dyllan Paul MD LAB BLOOD ORDERABLES Final Re sult Performing Organization Address City/[facility]/ZIP Co de Phone Number [facility] [address] [place] [address] * Magnesium (06/17/2025 11:58 PM EDT) Magnesium, Plasma 2.3 1.9 - 2.4 mg/dL 06/18/2025 12:32 AM EDT [facility] Blood Venous blood specimen / Unknown Venipuncture / Unknown 06/17/2025 11:58 PM EDT 06/18/2025 12:05 AM EDT us Dyllan Paul MD LAB BLOOD ORDERABLES Final Re sult Performing Organization Address City/[facility]/ZIP Co de Phone Number [facility] [address] [place] [address] * (ABNORMAL) Basic metabolic panel (06/17/2025 11:58 PM EDT) Glucose, Plasma 160(H) 74 - 99 mg/dL 06/18/2025 12:32 AM EDT [facility] BUN, Plasma 52(H) 8 - 23 mg/dL 06/18/2025 12:32 AM EDT [facility] Creatinine, Plasma 1.23(H) 0.70 - 1.20 mg/dL 06/18/2025 12:32 AM EDT [facility] BUN/Creatinine Ratio 42 06/18/2025 12:32 AM EDT [facility] Sodium, Plasma 151(H) 136 - 145 mmol/L 06/18/2025 12:32 AM EDT [facility] Potassium, Plasma 3.8 3.6 - 4.9 mmol/L 06/18/2025 12:32 AM EDT [facility] Chloride, Plasma 118(H) 97 - 107 mmol/L 06/18/2025 12:32 AM EDT [facility] CO2, Plasma 24 22 - 29 mmol/L 06/18/2025 12:32 AM EDT [facility] Anion Gap 9 6 - 16 mmol/L 06/18/2025 12:32 AM EDT [facility] Total Calcium, Plasma 9.0 8.9 - 10.2 mg/dL 06/18/2025 12:32 AM EDT [facility] eGFRcr 63.2 mL/min/1.7 3m*2 06/18/2025 12:32 AM EDT [facility] Comment:Reported eGFRcr in m L/min/1.73m2 is based the CKD-EPI 2020 equation that does not use a race coefficient. Blood Venous blood specimen / Unknown Venipuncture / Unknown 06/17/2025 11:58 PM EDT 06/18/2025 12:05 AM EDT us Dyllan Paul MD LAB BLOOD ORDERABLES Final Re sult [facility] [address] [place] [address] * (ABNORMAL) Hemogram (CBC) (06/17/2025 11:58 PM EDT) WBC Count 12.86(H) 3.70 - 10.30 10*3/uL LAB HEMATOLOGY METHOD 06/18/2025 12:15 AM EDT [facility] RBC Count 3.74(L) 4.60 - 6.10 10*6/uL LAB HEMATOLOGY METHOD 06/18/2025 12:15 AM EDT [facility] HGB 12.0(L) 13.7 - 17.5 g/dL LAB HEMATOLOGY METHOD 06/18/2025 12:15 AM EDT [facility] HCT 35.2(L) 40.0 - 51.0 % LAB HEMATOLOGY METHOD 06/18/2025 12:15 AM EDT [facility] Platelet Count 93(L) 155 - 369 10*3/uL LAB HEMATOLOGY METHOD 06/18/2025 12:15 AM EDT [facility] MCV 94 79 - 98 fL LAB HEMATOLOGY METHOD 06/18/2025 12:15 AM EDT [facility] MCH 32.1(H) 26.0 - 32.0 pg LAB HEMATOLOGY METHOD 06/18/2025 12:15 AM EDT [facility] MCHC 34.1 30.7 - 35.5 g/dL LAB HEMATOLOGY METHOD 06/18/2025 12:15 AM EDT [facility] RDW 16.2(H) 11.5 - 14.5 % LAB HEMATOLOGY METHOD 06/18/2025 12:15 AM EDT [facility] MPV 12.6(H) 8.8 - 12.5 fL LAB HEMATOLOGY METHOD 06/18/2025 12:15 AM EDT [facility] nRBC 0.2(H) <=0.0 per 100 WBCs LAB HEMATOLOGY METHOD 06/18/2025 12:15 AM EDT [facility] Blood Venous blood specimen / Unknown Venipuncture / Unknown 06/17/2025 11:58 PM EDT 06/18/2025 12:05 AM EDT Dyllan Paul MD LAB BLOOD ORDERABLES Final Re sult [facility] [address] [place] [address] * (ABNORMAL) Ammonia, Plasma (06/17/2025 11:58 PM EDT) Ammonia 55(H) 11 - 51 umol/L 06/18/2025 12:29 AM EDT [facility] Blood Venous blood specimen / Unknown Venipuncture / Unknown 06/17/2025 11:58 PM EDT 06/18/2025 12:04 AM EDT us Michelle Iniguez APRN LAB BLOOD ORDERABLES Final R esult Performing Organization Address City/[facility]/ZIP Co de Phone Number [facility] [address] [place] [address] * (ABNORMAL) POCT glucose meter (06/17/2025 5:41 PM EDT) POCT Glucose 167(H) 74 - 99 mg/dL 06/17/2025 5:43 PM EDT [facility] Comment:Accuracy of a [...] for testing. Comment 06/17/2025 5:43 PM EDT [facility] Armorer Technician ID Lesia Booth 5:43 PM EDT [facility] Device ID [id number] 06/17/2025 5:43 PM EDT [facility] Specimen Type POC Capillary 06/17/2025 5:43 PM EDT [facility] Blood Capillary blood specimen / Unknown 06/17/2025 5:41 PM EDT 06/17/2025 5:43 PM EDT us Dyllan Paul MD LAB POINT OF CARE TE ST DOCKED DEVICE UNSOLICITED RESULTS Final Result Performing Organization Address City/[facility]/ZIP Co de Phone Number [facility] [address] [place] [address] * (ABNORMAL) Blood gas panel, arterial (06/17/2025 3:55 PM EDT) pH, Arterial 7.45(H) 7.31 - 7.42 LAB HEMATOLOGY METHOD 06/17/2025 4:06 PM EDT [facility] pCO2, Arterial 37 32 - 45 mmHg LAB HEMATOLOGY METHOD 06/17/2025 4:06 PM EDT [facility] pO2, Arterial 82 >70 mmHg LAB HEMATOLOGY METHOD 06/17/2025 4:06 PM EDT [facility] SO2, Measured, Arterial 97 94 - 98 % LAB HEMATOLOGY METHOD 06/17/2025 4:06 PM EDT [facility] Base Excess, Arterial 1.7 -2.0 - 3.0 mmol/L LAB HEMATOLOGY METHOD 06/17/2025 4:06 PM EDT [facility] Bicarbonate, Calculated, Arterial 26 22 - 26 mmol/L LAB HEMATOLOGY METHOD 06/17/2025 4:06 PM EDT [facility] Hematocrit, Whole Blood 38.7(L) 40.0 - 51.0 % LAB HEMATOLOGY METHOD 06/17/2025 4:06 PM EDT [facility] Sodium, Whole Blood 148(H) 136 - 145 mmol/L LAB HEMATOLOGY METHOD 06/17/2025 4:06 PM EDT [facility] Potassium, Whole Blood 4.3 3.6 - 4.9 mmol/L LAB HEMATOLOGY METHOD 06/17/2025 4:06 PM EDT [facility] Chloride, Whole Blood 114(H) 97 - 107 mmol/L LAB HEMATOLOGY METHOD 06/17/2025 4:06 PM EDT [facility] Glucose, Whole Blood 177(H) 74 - 99 mg/dL LAB HEMATOLOGY METHOD 06/17/2025 4:06 PM EDT [facility] Ionized Calcium, Whole Blood 4.9 4.6 - 5.1 mg/dL LAB HEMATOLOGY METHOD 06/17/2025 4:06 PM EDT [facility] Lactate, Arterial, Whole Blood 1.9(H) 0.5 - 1.6 mmol/L LAB HEMATOLOGY METHOD 06/17/2025 4:06 PM EDT [facility] Blood Arterial blood specimen / Unknown Arterial Puncture / Unknown 06/17/2025 3:55 PM EDT 06/17/2025 4:02 PM EDT us Michelle Iniguez APRN LAB BLOOD ORDERABLES Final R esult [facility] [address] [place] [address] * CT Head wo IV Contrast (06/17/2025 [...] Vira Siddiqui MD on 06/17/2025 12:54 PM us Lillian RODRIGUEZ IMG CT PROCEDURES Final Res ult * (ABNORMAL) Blood gas panel, arterial (06/17/2025 11:44 AM EDT) pH, Arterial 7.47(H) 7.31 - 7.42 LAB HEMATOLOGY METHOD 06/17/2025 11:56 AM EDT [facility] pCO2, Arterial 37 32 - 45 mmHg LAB HEMATOLOGY METHOD 06/17/2025 11:56 AM EDT [facility] pO2, Arterial 80 >70 mmHg LAB HEMATOLOGY METHOD 06/17/2025 11:56 AM EDT [facility] SO2, Measured, Arterial 97 94 - 98 % LAB HEMATOLOGY METHOD 06/17/2025 11:56 AM EDT [facility] Base Excess, Arterial 3.3(H) -2.0 - 3.0 mmol/L LAB HEMATOLOGY METHOD 06/17/2025 11:56 AM EDT [facility] Bicarbonate, Calculated, Arterial 27(H) 22 - 26 mmol/L LAB HEMATOLOGY METHOD 06/17/2025 11:56 AM EDT [facility] Hematocrit, Whole Blood 35.9(L) 40.0 - 51.0 % LAB HEMATOLOGY METHOD 06/17/2025 11:56 AM EDT [facility] Sodium, Whole Blood 147(H) 136 - 145 mmol/L LAB HEMATOLOGY METHOD 06/17/2025 11:56 AM EDT [facility] Potassium, Whole Blood 3.6 3.6 - 4.9 mmol/L LAB HEMATOLOGY METHOD 06/17/2025 11:56 AM EDT [facility] Chloride, Whole Blood 112(H) 97 - 107 mmol/L LAB HEMATOLOGY METHOD 06/17/2025 11:56 AM EDT [facility] Glucose, Whole Blood 153(H) 74 - 99 mg/dL LAB HEMATOLOGY METHOD 06/17/2025 11:56 AM EDT [facility] Ionized Calcium, Whole Blood 4.9 4.6 - 5.1 mg/dL LAB HEMATOLOGY METHOD 06/17/2025 11:56 AM EDT [facility] Lactate, Arterial, Whole Blood 1.4 0.5 - 1.6 mmol/L LAB HEMATOLOGY METHOD 06/17/2025 11:56 AM EDT [facility] Blood Arterial blood specimen / Unknown Arterial Puncture / Unknown 06/17/2025 11:44 AM EDT 06/17/2025 11:54 AM EDT us Michelle Iniguez APRN LAB BLOOD ORDERABLES Final R esult Performing Organization Address City/[facility] Co de Phone Number [facility] [address] [place] [address] * (ABNORMAL) POCT glucose meter (06/17/2025 11:42 AM EDT) POCT Glucose 154(H) 74 - 99 mg/dL 06/17/2025 11:44 AM EDT [facility] Comment:Accuracy of a glucos e result [...] Comment 06/17/2025 11:44 AM EDT [facility] Armorer Technician ID Lesia Booth 11:44 AM EDT [employer] [facility] Device ID [id number] 06/17/2025 11:44 AM EDT [facility] Specimen Type POC Arterial 06/17/2025 11:44 AM EDT [facility] Blood Arterial blood specimen / Unknown 06/17/2025 11:42 AM EDT 06/17/2025 11:44 AM EDT us Dyllan Paul MD LAB POINT OF CARE TE ST DOCKED DEVICE UNSOLICITED RESULTS Final Result Performing Organization Address City/[facility]/ZIP Co de Phone Number [facility] [address] [place] [address] * (ABNORMAL) Ammonia, Plasma (06/17/2025 8:55 AM EDT) Ammonia 89(H) 11 - 51 umol/L 06/17/2025 9:26 AM EDT [facility] Blood Venous blood specimen / Unknown Venipuncture / Unknown 06/17/2025 8:55 AM EDT 06/17/2025 9:01 AM EDT us Lillian RODRIGUEZ LAB BLOOD ORDERABLES Final Result [facility] [address] [place] [address] * (ABNORMAL) Blood gas panel, arterial (06/17/2025 8:55 AM EDT) pH, Arterial 7.47(H) 7.31 - 7.42 LAB HEMATOLOGY METHOD 06/17/2025 9:05 AM EDT [facility] pCO2, Arterial 37 32 - 45 mmHg LAB HEMATOLOGY METHOD 06/17/2025 9:05 AM EDT [facility] pO2, Arterial 89 >70 mmHg LAB HEMATOLOGY METHOD 06/17/2025 9:05 AM EDT [facility] SO2, Measured, Arterial 98 94 - 98 % LAB HEMATOLOGY METHOD 06/17/2025 9:05 AM EDT [facility] Base Excess, Arterial 3.5(H) -2.0 - 3.0 mmol/L LAB HEMATOLOGY METHOD 06/17/2025 9:05 AM EDT [facility] Bicarbonate, Calculated, Arterial 27(H) 22 - 26 mmol/L LAB HEMATOLOGY METHOD 06/17/2025 9:05 AM EDT [facility] Hematocrit, Whole Blood 37.1(L) 40.0 - 51.0 % LAB HEMATOLOGY METHOD 06/17/2025 9:05 AM EDT [facility] Sodium, Whole Blood 145 136 - 145 mmol/L LAB HEMATOLOGY METHOD 06/17/2025 9:05 AM EDT [facility] Potassium, Whole Blood 3.6 3.6 - 4.9 mmol/L LAB HEMATOLOGY METHOD 06/17/2025 9:05 AM EDT [facility] Chloride, Whole Blood 114(H) 97 - 107 mmol/L LAB HEMATOLOGY METHOD 06/17/2025 9:05 AM EDT [facility] Glucose, Whole Blood 154(H) 74 - 99 mg/dL LAB HEMATOLOGY METHOD 06/17/2025 9:05 AM EDT [facility] Ionized Calcium, Whole Blood 4.9 4.6 - 5.1 mg/dL LAB HEMATOLOGY METHOD 06/17/2025 9:05 AM EDT [facility] Lactate, Arterial, Whole Blood 1.4 0.5 - 1.6 mmol/L LAB HEMATOLOGY METHOD 06/17/2025 9:05 AM EDT [facility] Blood Arterial blood specimen / Unknown Arterial Puncture / Unknown 06/17/2025 8:55 AM EDT 06/17/2025 9:02 AM EDT us Michelle Iniguez APRN LAB BLOOD ORDERABLES Final R esult Performing Organization Address City/State/[facility] Co de Phone Number [facility] [address] [place] [address] * CT CRITICAL CARE, E/M 30-74 MINUTES (06/17/2025 8:36 [...] for testing. Comment 06/17/2025 5:30 AM EDT [facility] Armorer Technician ID Nir Murcia 5:30 AM EDT [facility] Device ID [id number] 06/17/2025 5:30 AM EDT [facility] Specimen Type POC Capillary 06/17/2025 5:30 AM EDT [facility] Blood Capillary blood specimen / Unknown 06/17/2025 5:28 AM EDT 06/17/2025 5:30 AM EDT Dyllan Paul MD LAB POINT OF CARE TE ST DOCKED DEVICE UNSOLICITED RESULTS Final Result Performing Organization Address City/[facility] de Phone Number [facility] [address] [place] [address] * (ABNORMAL) Ammonia, Plasma (06/17/2025 3:30 AM EDT) Ammonia 83(H) 11 - 51 umol/L 06/17/2025 4:04 AM EDT [facility] Comment:Improper specimen marquez ndling may falsely increase results. Blood Venous blood specimen / Unknown Venipuncture / Unknown 06/17/2025 3:30 AM EDT 06/17/2025 3:34 AM EDT Michelle Iniguez APRN LAB BLOOD ORDERABLES Final R esult [facility] [address] [place] [address] * (ABNORMAL) Blood gas panel, arterial (06/17/2025 3:30 AM EDT) pH, Arterial 7.46(H) 7.31 - 7.42 LAB HEMATOLOGY METHOD 06/17/2025 3:36 AM EDT [facility] pCO2, Arterial 38 32 - 45 mmHg LAB HEMATOLOGY METHOD 06/17/2025 3:36 AM EDT [facility] pO2, Arterial 123 >70 mmHg LAB HEMATOLOGY METHOD 06/17/2025 3:36 AM EDT [facility] SO2, Measured, Arterial 100(H) 94 - 98 % LAB HEMATOLOGY METHOD 06/17/2025 3:36 AM EDT [facility] Base Excess, Arterial 2.9 -2.0 - 3.0 mmol/L LAB HEMATOLOGY METHOD 06/17/2025 3:36 AM EDT [facility] Bicarbonate, Calculated, Arterial 27(H) 22 - 26 mmol/L LAB HEMATOLOGY METHOD 06/17/2025 3:36 AM EDT [facility] Hematocrit, Whole Blood 36.8(L) 40.0 - 51.0 % LAB HEMATOLOGY METHOD 06/17/2025 3:36 AM EDT [facility] Sodium, Whole Blood 147(H) 136 - 145 mmol/L LAB HEMATOLOGY METHOD 06/17/2025 3:36 AM EDT [facility] Potassium, Whole Blood 3.5(L) 3.6 - 4.9 mmol/L LAB HEMATOLOGY METHOD 06/17/2025 3:36 AM EDT [facility] Chloride, Whole Blood 111(H) 97 - 107 mmol/L LAB HEMATOLOGY METHOD 06/17/2025 3:36 AM EDT [facility] Glucose, Whole Blood 187(H) 74 - 99 mg/dL LAB HEMATOLOGY METHOD 06/17/2025 3:36 AM EDT [facility] Ionized Calcium, Whole Blood 4.9 4.6 - 5.1 mg/dL LAB HEMATOLOGY METHOD 06/17/2025 3:36 AM EDT [facility] Lactate, Arterial, Whole Blood 1.7(H) 0.5 - 1.6 mmol/L LAB HEMATOLOGY METHOD 06/17/2025 3:36 AM EDT [facility] Blood Arterial blood specimen / Unknown Arterial Puncture / Unknown 06/17/2025 3:30 AM EDT 06/17/2025 3:34 AM EDT us Michelle Iniguez APRN LAB BLOOD ORDERABLES Final R esult Performing Organization Address City/[facility]/[place] [address] * (ABNORMAL) Free T4, Plasma (06/17/2025 12:24 AM EDT) Free T4, Plasma 0.7(L) 0.8 - 1.7 ng/dL 06/17/2025 8:59 AM EDT [facility] Blood Venous blood specimen / Unknown Venipuncture / Unknown 06/17/2025 12:24 AM EDT 06/17/2025 12:36 AM EDT us Lillian RODRIGUEZ LAB BLOOD ORDERABLES Final Result Performing Organization Address [facility] [place] [address] * Thyroid Stimulating Hormone, Plasma (06/17/2025 12:24 AM EDT) Thyroid Stimulating Hormone, Plasma 1.19 0.40 - 4.20 uIU/mL 06/17/2025 8:59 AM EDT [facility] Blood Venous blood specimen / Unknown Venipuncture / Unknown 06/17/2025 12:24 AM EDT 06/17/2025 12:36 AM EDT us Lillian RODRIGUEZ LAB BLOOD ORDERABLES Final Result Performing Organization Address City/[facility] [place] [address] * (ABNORMAL) Blood gas panel, arterial (06/17/2025 12:24 AM EDT) pH, Arterial 7.46(H) 7.31 - 7.42 LAB HEMATOLOGY METHOD 06/17/2025 12:41 AM EDT [facility] pCO2, Arterial 39 32 - 45 mmHg LAB HEMATOLOGY METHOD 06/17/2025 12:41 AM EDT [facility] pO2, Arterial 90 >70 mmHg LAB HEMATOLOGY METHOD 06/17/2025 12:41 AM EDT [facility] SO2, Measured, Arterial 98 94 - 98 % LAB HEMATOLOGY METHOD 06/17/2025 12:41 AM EDT [facility] Base Excess, Arterial 3.3(H) -2.0 - 3.0 mmol/L LAB HEMATOLOGY METHOD 06/17/2025 12:41 AM EDT [facility] Bicarbonate, Calculated, Arterial 27(H) 22 - 26 mmol/L LAB HEMATOLOGY METHOD 06/17/2025 12:41 AM EDT [facility] Hematocrit, Whole Blood 36.5(L) 40.0 - 51.0 % LAB HEMATOLOGY METHOD 06/17/2025 12:41 AM EDT [facility] Sodium, Whole Blood 148(H) 136 - 145 mmol/L LAB HEMATOLOGY METHOD 06/17/2025 12:41 AM EDT [facility] Potassium, Whole Blood 3.7 3.6 - 4.9 mmol/L LAB HEMATOLOGY METHOD 06/17/2025 12:41 AM EDT [facility] Chloride, Whole Blood 112(H) 97 - 107 mmol/L LAB HEMATOLOGY METHOD 06/17/2025 12:41 AM EDT [facility] Glucose, Whole Blood 159(H) 74 - 99 mg/dL LAB HEMATOLOGY METHOD 06/17/2025 12:41 AM EDT [facility] Ionized Calcium, Whole Blood 4.8 4.6 - 5.1 mg/dL LAB HEMATOLOGY METHOD 06/17/2025 12:41 AM EDT [facility] Lactate, Arterial, Whole Blood 1.7(H) 0.5 - 1.6 mmol/L LAB HEMATOLOGY METHOD 06/17/2025 12:41 AM EDT [facility] Blood Arterial blood specimen / Unknown Arterial Puncture / Unknown 06/17/2025 12:24 AM EDT 06/17/2025 12:34 AM EDT Michelle Iniguez APRN LAB BLOOD ORDERABLES Final R esult Performing Organization Address [facility]/ZIP Co de Phone Number [facility] [address] [place] [address] * Phosphorus (06/17/2025 12:24 AM EDT) Phosphorus, Plasma 2.7 2.5 - 4.5 mg/dL 06/17/2025 1:04 AM EDT [facility] Blood Venous blood specimen / Unknown Venipuncture / Unknown 06/17/2025 12:24 AM EDT 06/17/2025 12:36 AM EDT Dyllan Paul MD LAB BLOOD ORDERABLES Final Re sult Performing Organization Address [facility] Co de Phone Number [facility] [address] [place] [address] * Magnesium (06/17/2025 12:24 AM EDT) [facility] Magnesium, Plasma 2.3 1.9 - 2.4 mg/dL 06/17/2025 1:04 AM EDT [facility] Blood Venous blood specimen / Unknown Venipuncture / Unknown 06/17/2025 12:24 AM EDT 06/17/2025 12:36 AM EDT Dyllan Paul MD LAB BLOOD ORDERABLES Final Re sult Performing Organization Address City/[facility]/ZIP Co de Phone Number [facility] [address] [place] [address] * (ABNORMAL) Basic metabolic panel (06/17/2025 12:24 AM EDT) Glucose, Plasma 163(H) 74 - 99 mg/dL 06/17/2025 1:04 AM EDT [facility] BUN, Plasma 51(H) 8 - 23 mg/dL 06/17/2025 1:04 AM EDT [facility] Creatinine, Plasma 1.37(H) 0.70 - 1.20 mg/dL 06/17/2025 1:04 AM EDT [facility] BUN/Creatinine Ratio 37 06/17/2025 1:04 AM EDT [facility] Sodium, Plasma 146(H) 136 - 145 mmol/L 06/17/2025 1:04 AM EDT [facility] Potassium, Plasma 4.1 3.6 - 4.9 mmol/L 06/17/2025 1:04 AM EDT [facility] Chloride, Plasma 112(H) 97 - 107 mmol/L 06/17/2025 1:04 AM EDT [facility] CO2, Plasma 24 22 - 29 mmol/L 06/17/2025 1:04 AM EDT [facility] Anion Gap 10 6 - 16 mmol/L 06/17/2025 1:04 AM EDT [facility] Total Calcium, Plasma 8.7(L) 8.9 - 10.2 mg/dL 06/17/2025 1:04 AM EDT [facility] eGFRcr 55.5 mL/min/1.7 3m*2 06/17/2025 1:04 AM EDT [facility] Comment:Reported eGFRcr in m L/min/1.73m2 is based the CKD-EPI 2020 equation that does not use a race coefficient. Blood Venous blood specimen / Unknown Venipuncture / Unknown 06/17/2025 12:24 AM EDT 06/17/2025 12:36 AM EDT us Dyllan Paul MD LAB BLOOD ORDERABLES Final Re sult [facility] [address] [place] [address] * (ABNORMAL) Hemogram (CBC) (06/17/2025 12:24 AM EDT) WBC Count 13.51(H) 3.70 - 10.30 10*3/uL LAB HEMATOLOGY METHOD 06/17/2025 12:45 AM EDT [facility] RBC Count 3.70(L) 4.60 - 6.10 10*6/uL LAB HEMATOLOGY METHOD 06/17/2025 12:45 AM EDT [facility] HGB 12.1(L) 13.7 - 17.5 g/dL LAB HEMATOLOGY METHOD 06/17/2025 12:45 AM EDT [facility] HCT 34.3(L) 40.0 - 51.0 % LAB HEMATOLOGY METHOD 06/17/2025 12:45 AM EDT [facility] Platelet Count 99(L) 155 - 369 10*3/uL LAB HEMATOLOGY METHOD 06/17/2025 12:45 AM EDT [facility] MCV 93 79 - 98 fL LAB HEMATOLOGY METHOD 06/17/2025 12:45 AM EDT [facility] MCH 32.7(H) 26.0 - 32.0 pg LAB HEMATOLOGY METHOD 06/17/2025 12:45 AM EDT [facility] MCHC 35.3 30.7 - 35.5 g/dL LAB HEMATOLOGY METHOD 06/17/2025 12:45 AM EDT [facility] RDW 15.8(H) 11.5 - 14.5 % LAB HEMATOLOGY METHOD 06/17/2025 12:45 AM EDT [facility] MPV 12.8(H) 8.8 - 12.5 fL LAB HEMATOLOGY METHOD 06/17/2025 12:45 AM EDT [facility] nRBC 0.1(H) <=0.0 per 100 WBCs LAB HEMATOLOGY METHOD 06/17/2025 12:45 AM EDT [facility] Blood Venous blood specimen / Unknown Venipuncture / Unknown 06/17/2025 12:24 AM EDT 06/17/2025 12:38 AM EDT Dyllan Paul MD LAB BLOOD ORDERABLES Final Re sult [facility] [address] [place] [address] * (ABNORMAL) POCT glucose meter (06/17/2025 12:15 AM EDT) [facility] POCT Glucose 151(H) 74 - 99 mg/dL 06/17/2025 12:17 AM EDT [facility] Comment:Accuracy of a glucos e result [...] Comment 06/17/2025 12:17 AM EDT [facility] Armorer Technician ID Nir Murcia 12:17 AM EDT [facility] Device ID [id number] 06/17/2025 12:17 AM EDT [facility] Specimen Type POC Capillary 06/17/2025 12:17 AM EDT [facility] Blood Capillary blood specimen / Unknown 06/17/2025 12:15 AM EDT 06/17/2025 12:17 AM EDT us Dyllan Paul MD LAB POINT OF CARE TE ST DOCKED DEVICE UNSOLICITED RESULTS Final Result [facility] [address] [place] [address] * (ABNORMAL) Blood gas panel, arterial (06/16/2025 8:32 PM EDT) pH, Arterial 7.48(H) 7.31 - 7.42 LAB HEMATOLOGY METHOD 06/16/2025 8:39 PM EDT [facility] pCO2, Arterial 37 32 - 45 mmHg LAB HEMATOLOGY METHOD 06/16/2025 8:39 PM EDT [facility] pO2, Arterial 99 >70 mmHg LAB HEMATOLOGY METHOD 06/16/2025 8:39 PM EDT [facility] SO2, Measured, Arterial 99(H) 94 - 98 % LAB HEMATOLOGY METHOD 06/16/2025 8:39 PM EDT [facility] Base Excess, Arterial 4.0(H) -2.0 - 3.0 mmol/L LAB HEMATOLOGY METHOD 06/16/2025 8:39 PM EDT [facility] Bicarbonate, Calculated, Arterial 28(H) 22 - 26 mmol/L LAB HEMATOLOGY METHOD 06/16/2025 8:39 PM EDT [facility] Hematocrit, Whole Blood 36.1(L) 40.0 - 51.0 % LAB HEMATOLOGY METHOD 06/16/2025 8:39 PM EDT [facility] Sodium, Whole Blood 145 136 - 145 mmol/L LAB HEMATOLOGY METHOD 06/16/2025 8:39 PM EDT [facility] Potassium, Whole Blood 3.4(L) 3.6 - 4.9 mmol/L LAB HEMATOLOGY METHOD 06/16/2025 8:39 PM EDT [facility] Chloride, Whole Blood 110(H) 97 - 107 mmol/L LAB HEMATOLOGY METHOD 06/16/2025 8:39 PM EDT [facility] Glucose, Whole Blood 171(H) 74 - 99 mg/dL LAB HEMATOLOGY METHOD 06/16/2025 8:39 PM EDT [facility] Ionized Calcium, Whole Blood 4.7 4.6 - 5.1 mg/dL LAB HEMATOLOGY METHOD 06/16/2025 8:39 PM EDT [facility] Lactate, Arterial, Whole Blood 1.5 0.5 - 1.6 mmol/L LAB HEMATOLOGY METHOD 06/16/2025 8:39 PM EDT [facility] Blood Arterial blood specimen / Unknown Arterial Puncture / Unknown 06/16/2025 8:32 PM EDT 06/16/2025 8:36 PM EDT Michelle Iniguez APRN LAB BLOOD ORDERABLES Final R esult [facility] [address] [place] [address] * (ABNORMAL) POCT glucose meter (06/16/2025 5:31 [...] Comment 06/16/2025 5:33 PM EDT [facility] Armorer Technician ID Agatha Dasilva 06/16/2025 5:33 PM EDT [facility] Device ID [id number] 06/16/2025 5:33 PM EDT [facility] Specimen Type POC Arterial 06/16/2025 5:33 PM EDT [facility] Blood Arterial blood specimen / Unknown 06/16/2025 5:31 PM EDT 06/16/2025 5:33 PM EDT us Dyllan Paul MD LAB POINT OF CARE TE ST DOCKED DEVICE UNSOLICITED RESULTS Final Result Performing Organization Address [facility]/ZIP Co de Phone Number [facility] [address] [place] [address] * (ABNORMAL) Ammonia, Plasma (06/16/2025 5:21 PM EDT) Ammonia 135(H) 11 - 51 umol/L 06/16/2025 6:06 PM EDT [facility] Blood Venous blood specimen / Unknown Venipuncture / Unknown 06/16/2025 5:21 PM EDT 06/16/2025 5:30 PM EDT us Michelle Iniguez APRN LAB BLOOD ORDERABLES Final R esult Performing Organization Address City/[facility]/ZIP Co de Phone Number [facility] [address] [place] [address] * (ABNORMAL) Comprehensive metabolic panel (06/16/2025 5:21 PM EDT) Glucose, Plasma 189(H) 74 - 99 mg/dL 06/16/2025 6:13 PM EDT [facility] BUN, Plasma 53(H) 8 - 23 mg/dL 06/16/2025 6:13 PM EDT [facility] Creatinine, Plasma 1.39(H) 0.70 - 1.20 mg/dL 06/16/2025 6:13 PM EDT [facility] BUN/Creatinine Ratio 38 06/16/2025 6:13 PM EDT [facility] Sodium, Plasma 145 136 - 145 mmol/L 06/16/2025 6:13 PM EDT [facility] Potassium, Plasma 3.6 3.6 - 4.9 mmol/L 06/16/2025 6:13 PM EDT [facility] Chloride, Plasma 111(H) 97 - 107 mmol/L 06/16/2025 6:13 PM EDT [facility] CO2, Plasma 24 22 - 29 mmol/L 06/16/2025 6:13 PM EDT [facility] Anion Gap 10 6 - 16 mmol/L 06/16/2025 6:13 PM EDT [facility] Total Calcium, Plasma 8.5(L) 8.9 - 10.2 mg/dL 06/16/2025 6:13 PM EDT [facility] Total Protein 4.7(L) 6.3 - 7.9 g/dL 06/16/2025 6:13 PM EDT [facility] Albumin, Plasma 2.7(L) 3.5 - 5.2 g/dL 06/16/2025 6:13 PM EDT [facility] AST, Plasma 48 10 - 50 U/L 06/16/2025 6:13 PM EDT [facility] ALT, Plasma 24 10 - 50 U/L 06/16/2025 6:13 PM EDT [facility] Alkaline Phosphatase, Plasma 159(H) 40 - 115 U/L 06/16/2025 6:13 PM EDT [facility] Total Bilirubin, Plasma 2.8(H) 0.2 - 1.1 mg/dL 06/16/2025 6:13 PM EDT [facility] eGFRcr 54.5 mL/min/1.7 3m*2 06/16/2025 6:13 PM EDT [facility] Comment:Reported eGFRcr in m L/min/1.73m2 is based the CKD-EPI 2020 equation that does not use a race coefficient. Blood Venous blood specimen / Unknown Venipuncture / Unknown 06/16/2025 5:21 PM EDT 06/16/2025 5:41 PM EDT us Michelle Iniguez APRN LAB BLOOD ORDERABLES Final R esult [facility] [address] [place] [address] * (ABNORMAL) Blood gas panel, arterial (06/16/2025 5:20 PM EDT) pH, Arterial 7.47(H) 7.31 - 7.42 LAB HEMATOLOGY METHOD 06/16/2025 5:45 PM EDT [facility] pCO2, Arterial 37 32 - 45 mmHg LAB HEMATOLOGY METHOD 06/16/2025 5:45 PM EDT [facility] pO2, Arterial 66(L) >70 mmHg LAB HEMATOLOGY METHOD 06/16/2025 5:45 PM EDT [facility] SO2, Measured, Arterial 94 94 - 98 % LAB HEMATOLOGY METHOD 06/16/2025 5:45 PM EDT [facility] Base Excess, Arterial 3.2(H) -2.0 - 3.0 mmol/L LAB HEMATOLOGY METHOD 06/16/2025 5:45 PM EDT [facility] Bicarbonate, Calculated, Arterial 27(H) 22 - 26 mmol/L LAB HEMATOLOGY METHOD 06/16/2025 5:45 PM EDT [facility] Hematocrit, Whole Blood 36.2(L) 40.0 - 51.0 % LAB HEMATOLOGY METHOD 06/16/2025 5:45 PM EDT [facility] Sodium, Whole Blood 142 136 - 145 mmol/L LAB HEMATOLOGY METHOD 06/16/2025 5:45 PM EDT [facility] Potassium, Whole Blood 3.4(L) 3.6 - 4.9 mmol/L LAB HEMATOLOGY METHOD 06/16/2025 5:45 PM EDT [facility] Chloride, Whole Blood 111(H) 97 - 107 mmol/L LAB HEMATOLOGY METHOD 06/16/2025 5:45 PM EDT [facility] Glucose, Whole Blood 185(H) 74 - 99 mg/dL LAB HEMATOLOGY METHOD 06/16/2025 5:45 PM EDT [facility] Ionized Calcium, Whole Blood 4.8 4.6 - 5.1 mg/dL LAB HEMATOLOGY METHOD 06/16/2025 5:45 PM EDT [facility] Lactate, Arterial, Whole Blood 1.8(H) 0.5 - 1.6 mmol/L LAB HEMATOLOGY METHOD 06/16/2025 5:45 PM EDT [facility] Blood Arterial blood specimen / Unknown Arterial Puncture / Unknown 06/16/2025 5:20 PM EDT 06/16/2025 5:43 PM EDT Michelle Iniguez APRN LAB BLOOD ORDERABLES Final R esult Performing Organization Address City/[facility] Co de Phone Number [facility] [address] [place] [address] * (ABNORMAL) POCT glucose meter (06/16/2025 11:40 AM EDT) POCT Glucose 159(H) 74 - 99 mg/dL 06/16/2025 11:42 AM EDT [facility] Comment:Accuracy of a [...] for testing. Comment 06/16/2025 11:42 AM EDT [facility] Armorer Technician ID Agatha Dasilva 06/16/2025 11:42 AM EDT [facility] Device ID [id number] 06/16/2025 11:42 AM EDT [facility] Specimen Type POC Arterial 06/16/2025 11:42 AM EDT [facility] Blood Arterial blood specimen / Unknown 06/16/2025 11:40 AM EDT 06/16/2025 11:42 AM EDT us Dyllan Paul MD LAB POINT OF CARE TE ST DOCKED DEVICE UNSOLICITED RESULTS Final Result Performing Organization Address [facility] Co de Phone Number [facility] [address] [place] [address] * CT CRITICAL CARE, E/M 30-74 MINUTES (06/16/2025 10:30 [...] mean PAP [address](ACCEL) 35.0 mmHg CINTIA ISCV PA acc slope [...] is no recent study available for direct [id number] comparison. Left Ventricle Based on the linear [...] is no recent study available for direct [id number] comparison. us Raymond Katz APRN CV ECHO PROCEDURES Final Resu lt * (ABNORMAL) POCT glucose meter (06/16/2025 8:09 AM EDT) POCT Glucose 161(H) 74 - 99 mg/dL 06/16/2025 8:11 AM EDT [facility] Comment:Accuracy of a glucos e result [...] for testing. Comment 06/16/2025 8:11 AM EDT [facility] Armorer Technician ID Agatha Dasilva 06/16/2025 8:11 AM EDT [facility] Device ID [id number] 06/16/2025 8:11 AM EDT [facility] Specimen Type POC Arterial 06/16/2025 8:11 AM EDT [facility] Blood Arterial blood specimen / Unknown 06/16/2025 8:09 AM EDT 06/16/2025 8:11 AM EDT us Dyllan Paul MD LAB POINT OF CARE TE ST DOCKED DEVICE UNSOLICITED RESULTS Final Result Performing Organization Address City/[facility] Co de Phone Number [facility] [address] [place] [address] * Hemoglobin A1c (06/16/2025 4:24 AM EDT) Hemoglobin A1c 5.4 <5.7 % 06/16/2025 12:01 PM EDT [facility] Blood Venous blood specimen / Unknown Venipuncture / Unknown 06/16/2025 4:24 AM EDT 06/16/2025 4:31 AM EDT Narrative [facility] - 06/16/2025 12:01 PM EDT HA1C Interpretive Data: Diagnosis of Diabetes: Diabetic > or = 6.5% Pre-diabetic 5.7 to 6.4% Non-diabetic < or = 5.6% Glycemic Targets for Type I and Type II Diabetics: Non- Adults <7.0% Adults <6.0% Children and Adolescents <7.5% Source: [place] [employer]. Standards of medical care in diabetes,2017. Diabetes Care.2017:40 (suppl 1):S1-S135. us Lillian RODRIGUEZ LAB BLOOD ORDERABLES Final Result Performing Organization Address City/[facility]/ZIP Co de Phone Number [facility] [address] [place] [address] * Triglycerides (06/16/2025 4:24 AM EDT) Triglycerides, Plasma 103 <150 mg/dL 06/16/2025 5:02 AM EDT [facility] Comment: Triglyceride Reference Range (age >17 years): Desirable: <150 mg/dL Borderline high: 150 to 199 mg/dL High: 200 to 499 mg/dL Very high: >499 mg/dL Increased risk of pancreatitis: >1000 mg/dL Fasting greater than or equal to 12 hours? No 06/16/2025 5:02 AM EDT [facility] Blood Venous blood specimen / Unknown Venipuncture / Unknown 06/16/2025 4:24 AM EDT 06/16/2025 4:34 AM EDT us Raymond Katz APRN LAB BLOOD ORDERABLES Final Re sult Performing Organization Address City/[facility]/ZIP Co de Phone Number [facility] [address] [place] [address] * (ABNORMAL) Phosphorus (06/16/2025 4:24 AM EDT) Phosphorus, Plasma 1.5(L) 2.5 - 4.5 mg/dL 06/16/2025 5:02 AM EDT [facility] Blood Venous blood specimen / Unknown Venipuncture / Unknown 06/16/2025 4:24 AM EDT 06/16/2025 4:34 AM EDT us Dyllan Paul MD LAB BLOOD ORDERABLES Final Re sult [facility] [address] [place] [address] * Magnesium (06/16/2025 4:24 AM EDT) Magnesium, Plasma 2.4 1.9 - 2.4 mg/dL 06/16/2025 5:02 AM EDT [facility] Blood Venous blood specimen / Unknown Venipuncture / Unknown 06/16/2025 4:24 AM EDT 06/16/2025 4:34 AM EDT us Dyllan Paul MD LAB BLOOD ORDERABLES Final Re sult [facility] [address] [place] [address] * (ABNORMAL) Basic metabolic panel (06/16/2025 4:24 AM EDT) Glucose, Plasma 195(H) 74 - 99 mg/dL 06/16/2025 5:02 AM EDT [facility] BUN, Plasma 56(H) 8 - 23 mg/dL 06/16/2025 5:02 AM EDT [facility] Creatinine, Plasma 1.60(H) 0.70 - 1.20 mg/dL 06/16/2025 5:02 AM EDT [facility] BUN/Creatinine Ratio 35 06/16/2025 5:02 AM EDT [facility] Sodium, Plasma 142 136 - 145 mmol/L 06/16/2025 5:02 AM EDT [facility] Potassium, Plasma 3.1(L) 3.6 - 4.9 mmol/L 06/16/2025 5:02 AM EDT [facility] Chloride, Plasma 108(H) 97 - 107 mmol/L 06/16/2025 5:02 AM EDT [facility] CO2, Plasma 24 22 - 29 mmol/L 06/16/2025 5:02 AM EDT [facility] Anion Gap 10 6 - 16 mmol/L 06/16/2025 5:02 AM EDT [facility] Total Calcium, Plasma 8.5(L) 8.9 - 10.2 mg/dL 06/16/2025 5:02 AM EDT [facility] eGFRcr 46.1 mL/min/1.7 3m*2 06/16/2025 5:02 AM EDT [facility] Comment:Reported eGFRcr in m L/min/1.73m2 is based the CKD-EPI 2020 equation that does not use a race coefficient. Blood Venous blood specimen / Unknown Venipuncture / Unknown 06/16/2025 4:24 AM EDT 06/16/2025 4:34 AM EDT us Dyllan Paul MD LAB BLOOD ORDERABLES Final Re sult [facility] [address] [place] [address] * (ABNORMAL) Hemogram (CBC) (06/16/2025 4:24 AM EDT) WBC Count 12.74(H) 3.70 - 10.30 10*3/uL LAB HEMATOLOGY METHOD 06/16/2025 4:45 AM EDT [facility] RBC Count 3.66(L) 4.60 - 6.10 10*6/uL LAB HEMATOLOGY METHOD 06/16/2025 4:45 AM EDT [facility] HGB 11.8(L) 13.7 - 17.5 g/dL LAB HEMATOLOGY METHOD 06/16/2025 4:45 AM EDT [facility] HCT 34.2(L) 40.0 - 51.0 % LAB HEMATOLOGY METHOD 06/16/2025 4:45 AM EDT [facility] Platelet Count 67(L) 155 - 369 10*3/uL LAB HEMATOLOGY METHOD 06/16/2025 4:45 AM EDT [facility] MCV 93 79 - 98 fL LAB HEMATOLOGY METHOD 06/16/2025 4:45 AM EDT [facility] MCH 32.2(H) 26.0 - 32.0 pg LAB HEMATOLOGY METHOD 06/16/2025 4:45 AM EDT [facility] MCHC 34.5 30.7 - 35.5 g/dL LAB HEMATOLOGY METHOD 06/16/2025 4:45 AM EDT [facility] RDW 15.5(H) 11.5 - 14.5 % LAB HEMATOLOGY METHOD 06/16/2025 4:45 AM EDT [facility] MPV 12.7(H) 8.8 - 12.5 fL LAB HEMATOLOGY METHOD 06/16/2025 4:45 AM EDT [facility] nRBC 0.0 <=0.0 per 100 WBCs LAB HEMATOLOGY METHOD 06/16/2025 4:45 AM EDT [facility] Blood Venous blood specimen / Unknown Venipuncture / Unknown 06/16/2025 4:24 AM EDT 06/16/2025 4:31 AM EDT us Dyllan Paul MD LAB BLOOD ORDERABLES Final Re sult [facility] [address] [place] [address] * XR Chest 1 View (06/16/2025 4:23 [...] (Urine) Negative Negative 06/16/2025 6:33 AM EDT [facility] Streptococcus pneumoniae Antigen Result (Urine) Negative Negative 06/16/2025 6:33 AM EDT [facility] Urine Urine specimen obtained by clean catch procedure / Unknown Non-blood Collection / Unknown 06/15/2025 2:53 PM EDT 06/15/2025 3:17 PM EDT Corry Doss APRN, DNP LAB MICROBIOLOGY - G ENERAL ORDERABLES Final Result [facility] [address] [place] [address] * Mycoplasma Pneumoniae DNA By PCR (06/15/2025 2:49 PM EDT) Mycoplasma pneumoniae Source aspirate 06/23/2025 9:22 PM EDT [facility] ([place]) Mycoplasma pneumoniae by PCR Not Detected 06/23/2025 9:22 PM EDT [facility] ([place]) Aspirate Non-blood Collection / Unknown 06/15/2025 2:49 PM EDT 06/15/2025 3:34 PM EDT Narrative [facility] ([place]) - 06/23/2025 9:22 PM EDT NOT DETECTED - A negative result does not rule out the presence of PCR inhibitors in the patient specimen or assay specific nucleic acid in concentrations below the level of detection by the assay. INTERPRETIVE INFORMATION: Mycoplasma pneumoniae by PCR This test was developed and its performance characteristics determined by [facility]. It has not been cleared or approved by the [place] Food and Drug Administration. This test was performed in a CLIA certified laboratory and is intended for clinical purposes. Performed By: [facility] [address] [place] [address] Set Rider: Sotero Banuelos MD, PhD CLIA Number: [id number] Corry Doss APRN, DNP LAB REF LAB BLOOD AN D FLUID ORD Final Result [facility] ([facility]) [address] [place] [address] * Nasopharyngeal Respiratory Panel (06/15/2025 2:47 PM EDT) Nasopharyngeal Respiratory PCR Interpretation Not Detected for all analytes Not Detected for all analytes 06/15/2025 5:19 PM EDT [facility] Swab Nasopharyngeal structure / Unknown Non-blood Collection / Unknown 06/15/2025 2:47 PM EDT 06/15/2025 3:18 PM EDT Narrative [facility] - 06/15/2025 5:19 PM EDT This [...] Respiratory PCR Panel is performed using the [employer] ePlex instrument. This test is FDA approved for use with Nasopharyngeal swabs only. This test is used for clinical purposes. It should not be regarded as investigational or for research. [facility] is certified under the Clinical Laboratory Improvement Amendments of 1988 (CLIA-88) as qualified to perform high complexity clinical laboratory testing. us Corry Doss APRN, DNP LAB MICROBIOLOGY - G ENERAL ORDERABLES Final Result [facility] [address] [place] [address] * (ABNORMAL) Mycoplasma Pneumoniae Antibody, IgG & IgM (06/15/2025 2:42 PM EDT) Mycoplasma Pneumoniae Antibody IgM 0.11 <=0.76 U/L 06/19/2025 5:44 AM EDT [facility] ([place]) Mycoplasma Pneumoniae Antibody IgG 0.20(H) <=0.09 U/L 06/19/2025 5:44 AM EDT [facility] ([place]) Blood Arterial blood specimen / Unknown Arterial Puncture / Unknown 06/15/2025 2:42 PM EDT 06/15/2025 3:02 PM EDT Narrative [facility] ([place]) - 06/19/2025 5:44 AM EDT INTERPRETIVE INFORMATION: [...] more than 12 months post-infection. Performed By: [facility] [address] [place] [address] Set Rider: Sotero Banuelos MD, PhD CLIA Number: [id number] us Corry Doss SITE INSPECTOR, DNP LAB BLOOD ORDERABLES Final Result [facility] ([facility]) [address] [place] [address] * (ABNORMAL) Blood gas panel, arterial (06/15/2025 11:39 AM EDT) pH, Arterial 7.47(H) 7.31 - 7.42 LAB HEMATOLOGY METHOD 06/15/2025 11:48 AM EDT [facility] pCO2, Arterial 35 32 - 45 mmHg LAB HEMATOLOGY METHOD 06/15/2025 11:48 AM EDT [facility] pO2, Arterial 57(LL) >70 mmHg LAB HEMATOLOGY METHOD 06/15/2025 11:48 AM EDT [facility] SO2, Measured, Arterial 91(L) 94 - 98 % LAB HEMATOLOGY METHOD 06/15/2025 11:48 AM EDT [facility] Base Excess, Arterial 1.7 -2.0 - 3.0 mmol/L LAB HEMATOLOGY METHOD 06/15/2025 11:48 AM EDT [facility] Bicarbonate, Calculated, Arterial 25 22 - 26 mmol/L LAB HEMATOLOGY METHOD 06/15/2025 11:48 AM EDT [facility] Hematocrit, Whole Blood 36.2(L) 40.0 - 51.0 % LAB HEMATOLOGY METHOD 06/15/2025 11:48 AM EDT [facility] Sodium, Whole Blood 139 136 - 145 mmol/L LAB HEMATOLOGY METHOD 06/15/2025 11:48 AM EDT [facility] Potassium, Whole Blood 3.1(L) 3.6 - 4.9 mmol/L LAB HEMATOLOGY METHOD 06/15/2025 11:48 AM EDT [facility] Chloride, Whole Blood 107 97 - 107 mmol/L LAB HEMATOLOGY METHOD 06/15/2025 11:48 AM EDT [facility] Glucose, Whole Blood 174(H) 74 - 99 mg/dL LAB HEMATOLOGY METHOD 06/15/2025 11:48 AM EDT [facility] Ionized Calcium, Whole Blood 4.6 4.6 - 5.1 mg/dL LAB HEMATOLOGY METHOD 06/15/2025 11:48 AM EDT [facility] Lactate, Arterial, Whole Blood 1.7(H) 0.5 - 1.6 mmol/L LAB HEMATOLOGY METHOD 06/15/2025 11:48 AM EDT [facility] Blood Arterial blood specimen / Unknown Arterial Puncture / Unknown 06/15/2025 11:39 AM EDT 06/15/2025 11:44 AM EDT us Roshan Haas APRN, DNP LAB BLOOD ORDERABLES Fi nal Result Performing Organization Address [facility]/ZIP Co de Phone Number [facility] [address] [place] [address] * Vancomycin, random (06/15/2025 11:38 AM EDT) Vancomycin, Random, Plasma 8.2 ug/mL 06/15/2025 12:18 PM EDT [facility] Blood Venous blood specimen / Unknown Venipuncture / Unknown 06/15/2025 11:38 AM EDT 06/15/2025 11:48 AM EDT Corry Doss APRN, DNP LAB BLOOD ORDERABLES Final Result Performing Organization Address City/[facility]/ZIP Co de Phone Number [facility] [address] [place] [address] * CT CRITICAL CARE, E/M 30-74 MINUTES (06/15/2025 9:09 [...] charts and ventilator management Corry Doss APRN, [facility]INIC/BEDSIDE OR DERABLES Final Result * (ABNORMAL) Blood gas panel, arterial (06/15/2025 6:20 AM EDT) pH, Arterial 7.45(H) 7.31 - 7.42 LAB HEMATOLOGY METHOD 06/15/2025 6:27 AM EDT [facility] pCO2, Arterial 37 32 - 45 mmHg LAB HEMATOLOGY METHOD 06/15/2025 6:27 AM EDT [facility] pO2, Arterial 61(L) >70 mmHg LAB HEMATOLOGY METHOD 06/15/2025 6:27 AM EDT [facility] SO2, Measured, Arterial 92(L) 94 - 98 % LAB HEMATOLOGY METHOD 06/15/2025 6:27 AM EDT [facility] Base Excess, Arterial 1.9 -2.0 - 3.0 mmol/L LAB HEMATOLOGY METHOD 06/15/2025 6:27 AM EDT [facility] Bicarbonate, Calculated, Arterial 26 22 - 26 mmol/L LAB HEMATOLOGY METHOD 06/15/2025 6:27 AM EDT [facility] Hematocrit, Whole Blood 35.9(L) 40.0 - 51.0 % LAB HEMATOLOGY METHOD 06/15/2025 6:27 AM EDT [facility] Sodium, Whole Blood 138 136 - 145 mmol/L LAB HEMATOLOGY METHOD 06/15/2025 6:27 AM EDT [facility] Potassium, Whole Blood 3.3(L) 3.6 - 4.9 mmol/L LAB HEMATOLOGY METHOD 06/15/2025 6:27 AM EDT [facility] Chloride, Whole Blood 108(H) 97 - 107 mmol/L LAB HEMATOLOGY METHOD 06/15/2025 6:27 AM EDT [facility] Glucose, Whole Blood 173(H) 74 - 99 mg/dL LAB HEMATOLOGY METHOD 06/15/2025 6:27 AM EDT [facility] Ionized Calcium, Whole Blood 4.5(L) 4.6 - 5.1 mg/dL LAB HEMATOLOGY METHOD 06/15/2025 6:27 AM EDT [facility] Lactate, Arterial, Whole Blood 1.5 0.5 - 1.6 mmol/L LAB HEMATOLOGY METHOD 06/15/2025 6:27 AM EDT [facility] Blood Arterial blood specimen / Unknown Arterial Puncture / Unknown 06/15/2025 6:20 AM EDT 06/15/2025 6:25 AM EDT us Roshan Haas SITE INSPECTOR, DNP LAB BLOOD ORDERABLES Fi nal Result [facility] [address] [place] [address] * XR Chest 1 View (06/15/2025 6:12 [...] Dee MD on 06/15/2025 11:59 PM Corry M Romario SITE INSPECTOR, DNP IMG XR PROCEDURES Fi nal Result * (ABNORMAL) Blood gas panel, arterial (06/15/2025 12:25 AM EDT) pH, Arterial 7.43(H) 7.31 - 7.42 LAB HEMATOLOGY METHOD 06/15/2025 12:36 AM EDT [facility] pCO2, Arterial 38 32 - 45 mmHg LAB HEMATOLOGY METHOD 06/15/2025 12:36 AM EDT [facility] pO2, Arterial 65(L) >70 mmHg LAB HEMATOLOGY METHOD 06/15/2025 12:36 AM EDT [facility] SO2, Measured, Arterial 93(L) 94 - 98 % LAB HEMATOLOGY METHOD 06/15/2025 12:36 AM EDT [facility] Base Excess, Arterial 1.0 -2.0 - 3.0 mmol/L LAB HEMATOLOGY METHOD 06/15/2025 12:36 AM EDT [facility] Bicarbonate, Calculated, Arterial 25 22 - 26 mmol/L LAB HEMATOLOGY METHOD 06/15/2025 12:36 AM EDT [facility] Hematocrit, Whole Blood 34.9(L) 40.0 - 51.0 % LAB HEMATOLOGY METHOD 06/15/2025 12:36 AM EDT [facility] Sodium, Whole Blood 139 136 - 145 mmol/L LAB HEMATOLOGY METHOD 06/15/2025 12:36 AM EDT [facility] Potassium, Whole Blood 3.4(L) 3.6 - 4.9 mmol/L LAB HEMATOLOGY METHOD 06/15/2025 12:36 AM EDT [facility] Chloride, Whole Blood 106 97 - 107 mmol/L LAB HEMATOLOGY METHOD 06/15/2025 12:36 AM EDT [facility] Glucose, Whole Blood 173(H) 74 - 99 mg/dL LAB HEMATOLOGY METHOD 06/15/2025 12:36 AM EDT [facility] Ionized Calcium, Whole Blood 4.5(L) 4.6 - 5.1 mg/dL LAB HEMATOLOGY METHOD 06/15/2025 12:36 AM EDT [facility] Lactate, Arterial, Whole Blood 1.8(H) 0.5 - 1.6 mmol/L LAB HEMATOLOGY METHOD 06/15/2025 12:36 AM EDT [facility] Blood Arterial blood specimen / Unknown Arterial Puncture / Unknown 06/15/2025 12:25 AM EDT 06/15/2025 12:34 AM EDT Roshan Haas SITE INSPECTOR, DNP LAB BLOOD ORDERABLES Fi nal Result Performing Organization Address City/[facility]/ZIP Co de Phone Number [facility] [address] [place] [address] * Phosphorus (06/15/2025 12:25 AM EDT) Phosphorus, Plasma 3.2 2.5 - 4.5 mg/dL 06/15/2025 1:04 AM EDT [facility] Blood Arterial blood specimen / Unknown Venipuncture / Unknown 06/15/2025 12:25 AM EDT 06/15/2025 12:32 AM EDT Dyllan Paul MD LAB BLOOD ORDERABLES Final Re sult Performing Organization Address [facility]/ZIP Co de Phone Number [facility] [address] [place] [address] * Magnesium (06/15/2025 12:25 AM EDT) Magnesium, Plasma 2.3 1.9 - 2.4 mg/dL 06/15/2025 1:04 AM EDT [facility] Blood Arterial blood specimen / Unknown Venipuncture / Unknown 06/15/2025 12:25 AM EDT 06/15/2025 12:32 AM EDT Dyllan Paul MD LAB BLOOD ORDERABLES Final Re sult Performing Organization Address City/[facility]/ZIP Co de Phone Number [facility] [address] [place] [address] * (ABNORMAL) Basic metabolic panel (06/15/2025 12:25 AM EDT) Glucose, Plasma 168(H) 74 - 99 mg/dL 06/15/2025 1:04 AM EDT [facility] BUN, Plasma 58(H) 8 - 23 mg/dL 06/15/2025 1:04 AM EDT [facility] Creatinine, Plasma 2.18(H) 0.70 - 1.20 mg/dL 06/15/2025 1:04 AM EDT [facility] BUN/Creatinine Ratio 06/15/2025 1:04 AM EDT [facility] Sodium, Plasma 137 136 - 145 mmol/L 06/15/2025 1:04 AM EDT [facility] Potassium, Plasma 3.8 3.6 - 4.9 mmol/L 06/15/2025 1:04 AM EDT [facility] Chloride, Plasma 107 97 - 107 mmol/L 06/15/2025 1:04 AM EDT [facility] CO2, Plasma 23 22 - 29 mmol/L 06/15/2025 1:04 AM EDT [facility] Anion Gap 7 6 - 16 mmol/L 06/15/2025 1:04 AM EDT [facility] Total Calcium, Plasma 7.9(L) 8.9 - 10.2 mg/dL 06/15/2025 1:04 AM EDT [facility] eGFRcr 31.8 mL/min/1.7 3m*2 06/15/2025 1:04 AM EDT [facility] Comment:Reported eGFRcr in m L/min/1.73m2 is based the CKD-EPI 2020 equation that does not use a race coefficient. Blood Arterial blood specimen / Unknown Venipuncture / Unknown 06/15/2025 12:25 AM EDT 06/15/2025 12:32 AM EDT us Dyllan Paul MD LAB BLOOD ORDERABLES Final Re sult [facility] [address] [place] [address] * (ABNORMAL) Hemogram (CBC) (06/15/2025 12:25 AM EDT) [facility] WBC Count 15.49(H) 3.70 - 10.30 10*3/uL LAB HEMATOLOGY METHOD 06/15/2025 12:43 AM EDT [facility] RBC Count 3.57(L) 4.60 - 6.10 10*6/uL LAB HEMATOLOGY METHOD 06/15/2025 12:43 AM EDT [facility] HGB 11.6(L) 13.7 - 17.5 g/dL LAB HEMATOLOGY METHOD 06/15/2025 12:43 AM EDT [facility] HCT 33.1(L) 40.0 - 51.0 % LAB HEMATOLOGY METHOD 06/15/2025 12:43 AM EDT [facility] Platelet Count 68(L) 155 - 369 10*3/uL LAB HEMATOLOGY METHOD 06/15/2025 12:43 AM EDT [facility] MCV 93 79 - 98 fL LAB HEMATOLOGY METHOD 06/15/2025 12:43 AM EDT [facility] MCH 32.5(H) 26.0 - 32.0 pg LAB HEMATOLOGY METHOD 06/15/2025 12:43 AM EDT [facility] MCHC 35.0 30.7 - 35.5 g/dL LAB HEMATOLOGY METHOD 06/15/2025 12:43 AM EDT [facility] RDW 15.6(H) 11.5 - 14.5 % LAB HEMATOLOGY METHOD 06/15/2025 12:43 AM EDT [facility] MPV 12.7(H) 8.8 - 12.5 fL LAB HEMATOLOGY METHOD 06/15/2025 12:43 AM EDT [facility] nRBC 0.0 <=0.0 per 100 WBCs LAB HEMATOLOGY METHOD 06/15/2025 12:43 AM EDT [facility] Blood Arterial blood specimen / Unknown Venipuncture / Unknown 06/15/2025 12:25 AM EDT 06/15/2025 12:34 AM EDT us Dyllan Paul MD LAB BLOOD ORDERABLES Final Re sult [facility] [address] [place] [address] * (ABNORMAL) Blood gas panel, arterial (06/14/2025 6:07 PM EDT) pH, Arterial 7.41 7.31 - 7.42 LAB HEMATOLOGY METHOD 06/14/2025 6:14 PM EDT [facility] pCO2, Arterial 40 32 - 45 mmHg LAB HEMATOLOGY METHOD 06/14/2025 6:14 PM EDT [facility] pO2, Arterial 55(LL) >70 mmHg LAB HEMATOLOGY METHOD 06/14/2025 6:14 PM EDT [facility] SO2, Measured, Arterial 88(L) 94 - 98 % LAB HEMATOLOGY METHOD 06/14/2025 6:14 PM EDT [facility] Base Excess, Arterial 0.4 -2.0 - 3.0 mmol/L LAB HEMATOLOGY METHOD 06/14/2025 6:14 PM EDT [facility] Bicarbonate, Calculated, Arterial 25 22 - 26 mmol/L LAB HEMATOLOGY METHOD 06/14/2025 6:14 PM EDT [facility] Hematocrit, Whole Blood 36.1(L) 40.0 - 51.0 % LAB HEMATOLOGY METHOD 06/14/2025 6:14 PM EDT [facility] Sodium, Whole Blood 138 136 - 145 mmol/L LAB HEMATOLOGY METHOD 06/14/2025 6:14 PM EDT [facility] Potassium, Whole Blood 3.7 3.6 - 4.9 mmol/L LAB HEMATOLOGY METHOD 06/14/2025 6:14 PM EDT [facility] Chloride, Whole Blood 106 97 - 107 mmol/L LAB HEMATOLOGY METHOD 06/14/2025 6:14 PM EDT [facility] Glucose, Whole Blood 160(H) 74 - 99 mg/dL LAB HEMATOLOGY METHOD 06/14/2025 6:14 PM EDT [facility] Ionized Calcium, Whole Blood 4.5(L) 4.6 - 5.1 mg/dL LAB HEMATOLOGY METHOD 06/14/2025 6:14 PM EDT [facility] Lactate, Arterial, Whole Blood 2.1(H) 0.5 - 1.6 mmol/L LAB HEMATOLOGY METHOD 06/14/2025 6:14 PM EDT [facility] Blood Arterial blood specimen / Unknown Arterial Line / Unknown 06/14/2025 6:07 PM EDT 06/14/2025 6:13 PM EDT us Roshan Haas SITE INSPECTOR, DNP LAB BLOOD ORDERABLES Fi nal Result [facility] [address] [place] [address] * (ABNORMAL) Blood gas panel, arterial (06/14/2025 12:09 PM EDT) pH, Arterial 7.39 7.31 - 7.42 LAB HEMATOLOGY METHOD 06/14/2025 12:20 PM EDT [facility] pCO2, Arterial 42 32 - 45 mmHg LAB HEMATOLOGY METHOD 06/14/2025 12:20 PM EDT [facility] pO2, Arterial 64(L) >70 mmHg LAB HEMATOLOGY METHOD 06/14/2025 12:20 PM EDT [facility] SO2, Measured, Arterial 92(L) 94 - 98 % LAB HEMATOLOGY METHOD 06/14/2025 12:20 PM EDT [facility] Base Excess, Arterial -0.2 -2.0 - 3.0 mmol/L LAB HEMATOLOGY METHOD 06/14/2025 12:20 PM EDT [facility] Bicarbonate, Calculated, Arterial 25 22 - 26 mmol/L LAB HEMATOLOGY METHOD 06/14/2025 12:20 PM EDT [facility] Hematocrit, Whole Blood 37.6(L) 40.0 - 51.0 % LAB HEMATOLOGY METHOD 06/14/2025 12:20 PM EDT [facility] Sodium, Whole Blood 137 136 - 145 mmol/L LAB HEMATOLOGY METHOD 06/14/2025 12:20 PM EDT [facility] Potassium, Whole Blood 3.9 3.6 - 4.9 mmol/L LAB HEMATOLOGY METHOD 06/14/2025 12:20 PM EDT [facility] Chloride, Whole Blood 107 97 - 107 mmol/L LAB HEMATOLOGY METHOD 06/14/2025 12:20 PM EDT [facility] Glucose, Whole Blood 143(H) 74 - 99 mg/dL LAB HEMATOLOGY METHOD 06/14/2025 12:20 PM EDT [facility] Ionized Calcium, Whole Blood 4.3(L) 4.6 - 5.1 mg/dL LAB HEMATOLOGY METHOD 06/14/2025 12:20 PM EDT [facility] Lactate, Arterial, Whole Blood 2.3(H) 0.5 - 1.6 mmol/L LAB HEMATOLOGY METHOD 06/14/2025 12:20 PM EDT [facility] Blood Arterial blood specimen / Unknown Arterial Line / Unknown 06/14/2025 12:09 PM EDT 06/14/2025 12:18 PM EDT Roshan Haas APRN, DNP LAB BLOOD ORDERABLES Fi nal Result [facility] [address] [place] [address] * CT CRITICAL CARE, E/M 30-74 MINUTES (06/14/2025 9:53 [...] APRN, DNP LAB URINE ORDERABLES Final Result [facility] [address] [place] [address] * (ABNORMAL) Urinalysis with reflex microscopic (Culture NOT Included) (06/14/2025 8:21 AM EDT) Color, Urine Red LAB URINALYSIS - AUTOMATED METHOD 06/14/2025 10:54 AM EDT [facility] Clarity, Urine Cloudy LAB URINALYSIS - AUTOMATED METHOD 06/14/2025 10:54 AM EDT [facility] Spec Poston, Urine 1.019 1.005 - 1.030 LAB URINALYSIS - AUTOMATED METHOD 06/14/2025 10:54 AM EDT [facility] pH, Urine <=5.0(L) 5.0 - 8.0 LAB URINALYSIS - AUTOMATED METHOD 06/14/2025 10:54 AM EDT [facility] Protein, Urine 100(A) Negative mg/dL LAB URINALYSIS - AUTOMATED METHOD 06/14/2025 10:54 AM EDT [facility] Glucose, Urine Negative Negative mg/dL LAB URINALYSIS - AUTOMATED METHOD 06/14/2025 10:54 AM EDT [facility] Ketones, Urine Negative Negative mg/dL LAB URINALYSIS - AUTOMATED METHOD 06/14/2025 10:54 AM EDT [facility] Blood, Urine Moderate(A) Negative LAB URINALYSIS - AUTOMATED METHOD 06/14/2025 10:54 AM EDT [facility] Bilirubin, Urine Small(A) Negative LAB URINALYSIS - AUTOMATED METHOD 06/14/2025 10:54 AM EDT [facility] Urobilinogen, Urine 1.0 0.2 to 1.0 mg/dL LAB URINALYSIS - AUTOMATED METHOD 06/14/2025 10:54 AM EDT [facility] Leukocytes, Urine Moderate(A) Negative LAB URINALYSIS - AUTOMATED METHOD 06/14/2025 10:54 AM EDT [facility] Nitrite, Urine Positive(A) Negative LAB URINALYSIS - AUTOMATED METHOD 06/14/2025 10:54 AM EDT [facility] RBC, Urine >50(A) 0 to 3 /HPF 06/14/2025 10:54 AM EDT [facility] Comment:This result was prev iously suppressed from the chart. WBC, Urine Unable to estimate due to obscuring RBC's (UNERBC) 0 to 5 /HPF 06/14/2025 10:54 AM EDT [facility] Comment:This result was prev iously suppressed from the chart. Squamous Epithelial Cells Unable to estimate due to obscuring RBC's (UNERBC) 0 to 5 /HPF 06/14/2025 10:54 AM EDT [facility] Comment:This result was prev iously suppressed from the chart. Hyaline Casts Unable to estimate due to obscuring RBC's (UNERBC) 0 to 5 /LPF 06/14/2025 10:54 AM EDT [facility] Comment:This result was prev iously suppressed from the chart. Bacteria, Urine Unable to estimate due to obscuring RBC's (UNERBC) Negative 06/14/2025 10:54 AM EDT [facility] Comment:This result was prev iously suppressed from the chart. WBC Casts Present Absent 06/14/2025 10:54 AM EDT [facility] Comment:This result was prev iously suppressed from the chart. Red Cell/Hemoglob in Casts Present Absent 06/14/2025 10:54 AM EDT [facility] Comment:This result was prev iously suppressed from the chart. Urine Urine specimen from urinary conduit / Unknown Non-blood Collection / Unknown 06/14/2025 8:21 AM EDT 06/14/2025 8:44 AM EDT Narrative [facility] - 06/14/2025 10:54 AM EDT Urinalysis dipstick results may be inaccurate due to specimen color or an interfering substance in the specimen. Performed by manual method us Corry Doss SITE INSPECTOR, DNP LAB URINE ORDERABLES Final Result [facility] [address] [place] [address] * (ABNORMAL) Respiratory Culture and Gram Stain (06/14/2025 8:18 AM EDT) Culture Heavy Growth 06/17/2025 11:03 AM EDT [facility] Culture Mixed upper respiratory kelsi(A) 06/17/2025 11:03 AM EDT [facility] Comment:The organism value f or this result has been updated. These results have been appended to the previously preliminary verified report. Gram Stain Result Fewer than 10 Epithelial cells/LPF(A) 06/17/2025 11:03 AM EDT [facility] Gram Stain Result Greater than 25 WBC/LPF(A) 06/17/2025 11:03 AM EDT [facility] Gram Stain Result Numerous Gram negative rods(A) 06/17/2025 11:03 AM EDT [facility] Gram Stain Result Numerous Gram positive cocci in pairs and chains(A) 06/17/2025 11:03 AM EDT [facility] Gram Stain Result Moderate Gram positive cocci in clusters(A) 06/17/2025 11:03 AM EDT [facility] Aspirate Specimen from endotracheal tube / Unknown Non-blood Collection / Unknown 06/14/2025 8:18 AM EDT 06/14/2025 10:27 AM EDT Corry Doss APRN, [facility] LAB MICROBIOLOGY - G ENERAL ORDERABLES Final Result [facility] [address] [place] [address] * XR Abdomen 1 View (06/14/2025 8:18 [...] on 06/14/2025 8:41 AM Corry Doss APRN, DNP IMG XR PROCEDURES Fi nal Result * Blood Culture (Aerobic/Anaerobet Set) (06/14/2025 8:17 AM EDT) Culture No growth at day 5 KEELY 06/19/2025 10:01 AM EDT [facility] Blood Upper arm part / Unknown Venipuncture / Unknown 06/14/2025 8:17 AM EDT 06/14/2025 8:59 AM EDT Corry Doss APRN, DNP LAB MICROBIOLOGY - G ENERAL ORDERABLES Final Result [facility] [address] [place] [address] * (ABNORMAL) Procalcitonin, Plasma (06/14/2025 8:17 AM EDT) Procalcitonin, Plasma 1.99(H) <0.09 ng/mL 06/14/2025 9:20 AM EDT [facility] Blood Venous blood specimen / Unknown Venipuncture / Unknown 06/14/2025 8:17 AM EDT 06/14/2025 8:43 AM EDT Narrative [facility] - 06/14/2025 9:20 AM [...] predict 28 day mortality risk. Please consult [email or web address] for more information. Test performed at [facility]. us Corry Doss APRN, DNP LAB BLOOD ORDERABLES Final Result [facility] [address] [place] [address] * (ABNORMAL) Blood gas panel, arterial (06/14/2025 5:30 AM EDT) pH, Arterial 7.37 7.31 - 7.42 LAB HEMATOLOGY METHOD 06/14/2025 5:43 AM EDT [facility] pCO2, Arterial 43 32 - 45 mmHg LAB HEMATOLOGY METHOD 06/14/2025 5:43 AM EDT [facility] pO2, Arterial 58(LL) >70 mmHg LAB HEMATOLOGY METHOD 06/14/2025 5:43 AM EDT [facility] SO2, Measured, Arterial 88(L) 94 - 98 % LAB HEMATOLOGY METHOD 06/14/2025 5:43 AM EDT [facility] Base Excess, Arterial -0.4 -2.0 - 3.0 mmol/L LAB HEMATOLOGY METHOD 06/14/2025 5:43 AM EDT [facility] Bicarbonate, Calculated, Arterial 25 22 - 26 mmol/L LAB HEMATOLOGY METHOD 06/14/2025 5:43 AM EDT [facility] Hematocrit, Whole Blood 38.5(L) 40.0 - 51.0 % LAB HEMATOLOGY METHOD 06/14/2025 5:43 AM EDT [facility] Sodium, Whole Blood 138 136 - 145 mmol/L LAB HEMATOLOGY METHOD 06/14/2025 5:43 AM EDT [facility] Potassium, Whole Blood 4.1 3.6 - 4.9 mmol/L LAB HEMATOLOGY METHOD 06/14/2025 5:43 AM EDT [facility] Chloride, Whole Blood 106 97 - 107 mmol/L LAB HEMATOLOGY METHOD 06/14/2025 5:43 AM EDT [facility] Glucose, Whole Blood 141(H) 74 - 99 mg/dL LAB HEMATOLOGY METHOD 06/14/2025 5:43 AM EDT [facility] Ionized Calcium, Whole Blood 4.3(L) 4.6 - 5.1 mg/dL LAB HEMATOLOGY METHOD 06/14/2025 5:43 AM EDT [facility] Lactate, Arterial, Whole Blood 2.1(H) 0.5 - 1.6 mmol/L LAB HEMATOLOGY METHOD 06/14/2025 5:43 AM EDT [facility] Blood Arterial blood specimen / Unknown Arterial Puncture / Unknown 06/14/2025 5:30 AM EDT 06/14/2025 5:37 AM EDT us Roshan Haas APRN, DNP LAB BLOOD ORDERABLES Fi nal Result [facility] [address] [place] [address] * ECG Adult (06/14/2025 4:26 AM EDT) EKG DIAGNOSIS CLASS Abnormal MUSE ECG Ventricular Rate 109 BPM MUSE ECG Atrial Rate [address] Interval 152 ms MUSE ECG QRSD Interval 86 ms MUSE ECG QT Interval 336 ms MUSE ECG QTC Interval 452 ms MUSE ECG P [place] -6 degrees MUSE ECG R [place] -1 degrees MUSE ECG T Wave [place] 5 degrees MUSE ECG Diagnosis Sinus tachycardia MUSE ECG Diagnosis Poor R-wave progression and cannot rule out an anterior infarct. MUSE ECG Diagnosis Cannot rule out Inferior infarct , age undetermined MUSE ECG Diagnosis Nonspecific T wave abnormality MUSE ECG Diagnosis Abnormal ECG MUSE ECG Diagnosis MUSE ECG Diagnosis Confirmed by Evin Flynn ([id number]) on 06/14/2025 2:38:22 PM MUSE ECG 06/14/2025 4:26 AM EDT 06/14/2025 2:38 PM EDT us Raymond B Katz SITE INSPECTOR ECG ORDERABLES Final Result MUSE ECG * [...] MD on 06/14/2025 4:30 AM Raymond Katz SITE INSPECTOR IMG XR PROCEDURES Final Resul t * (ABNORMAL) Blood gas panel, arterial (06/14/2025 3:35 AM EDT) pH, Arterial 7.37 7.31 - 7.42 LAB HEMATOLOGY METHOD 06/14/2025 3:43 AM EDT [facility] pCO2, Arterial 43 32 - 45 mmHg LAB HEMATOLOGY METHOD 06/14/2025 3:43 AM EDT [facility] pO2, Arterial 64(L) >70 mmHg LAB HEMATOLOGY METHOD 06/14/2025 3:43 AM EDT [facility] SO2, Measured, Arterial 91(L) 94 - 98 % LAB HEMATOLOGY METHOD 06/14/2025 3:43 AM EDT [facility] Base Excess, Arterial -0.6 -2.0 - 3.0 mmol/L LAB HEMATOLOGY METHOD 06/14/2025 3:43 AM EDT [facility] Bicarbonate, Calculated, Arterial 25 22 - 26 mmol/L LAB HEMATOLOGY METHOD 06/14/2025 3:43 AM EDT [facility] Hematocrit, Whole Blood 38.2(L) 40.0 - 51.0 % LAB HEMATOLOGY METHOD 06/14/2025 3:43 AM EDT [facility] Sodium, Whole Blood 139 136 - 145 mmol/L LAB HEMATOLOGY METHOD 06/14/2025 3:43 AM EDT [facility] Potassium, Whole Blood 4.1 3.6 - 4.9 mmol/L LAB HEMATOLOGY METHOD 06/14/2025 3:43 AM EDT [facility] Chloride, Whole Blood 106 97 - 107 mmol/L LAB HEMATOLOGY METHOD 06/14/2025 3:43 AM EDT [facility] Glucose, Whole Blood 140(H) 74 - 99 mg/dL LAB HEMATOLOGY METHOD 06/14/2025 3:43 AM EDT [facility] Ionized Calcium, Whole Blood 4.4(L) 4.6 - 5.1 mg/dL LAB HEMATOLOGY METHOD 06/14/2025 3:43 AM EDT [facility] Lactate, Arterial, Whole Blood 2.0(H) 0.5 - 1.6 mmol/L LAB HEMATOLOGY METHOD 06/14/2025 3:43 AM EDT [facility] Blood Arterial blood specimen / Unknown Arterial Puncture / Unknown 06/14/2025 3:35 AM EDT 06/14/2025 3:41 AM EDT us Raymond Katz SITE INSPECTOR LAB BLOOD ORDERABLES Final Re sult [facility] [address] [place] [address] * N-Terminal Probnp (06/14/2025 12:41 AM EDT) N-Terminal, PROBNP, Plasma 109 0 - 899 pg/mL 06/14/2025 4:32 AM EDT [facility] Blood Arterial blood specimen / Unknown Venipuncture / Unknown 06/14/2025 12:41 AM EDT 06/14/2025 12:47 AM EDT us Mando Michelle SITE INSPECTOR LAB BLOOD ORDERABLES Final Result Performing Organization Address City/[facility]/ZIP Co de Phone Number [facility] [address] [place] [address] * (ABNORMAL) Blood gas panel, arterial (06/14/2025 12:41 AM EDT) pH, Arterial 7.36 7.31 - 7.42 LAB HEMATOLOGY METHOD 06/14/2025 12:48 AM EDT [facility] pCO2, Arterial 44 32 - 45 mmHg LAB HEMATOLOGY METHOD 06/14/2025 12:48 AM EDT [facility] pO2, Arterial 84 >70 mmHg LAB HEMATOLOGY METHOD 06/14/2025 12:48 AM EDT [facility] SO2, Measured, Arterial 97 94 - 98 % LAB HEMATOLOGY METHOD 06/14/2025 12:48 AM EDT [facility] Base Excess, Arterial -0.8 -2.0 - 3.0 mmol/L LAB HEMATOLOGY METHOD 06/14/2025 12:48 AM EDT [facility] Bicarbonate, Calculated, Arterial 25 22 - 26 mmol/L LAB HEMATOLOGY METHOD 06/14/2025 12:48 AM EDT [facility] Hematocrit, Whole Blood 38.2(L) 40.0 - 51.0 % LAB HEMATOLOGY METHOD 06/14/2025 12:48 AM EDT [facility] Sodium, Whole Blood 140 136 - 145 mmol/L LAB HEMATOLOGY METHOD 06/14/2025 12:48 AM EDT [facility] Potassium, Whole Blood 4.2 3.6 - 4.9 mmol/L LAB HEMATOLOGY METHOD 06/14/2025 12:48 AM EDT [facility] Chloride, Whole Blood 106 97 - 107 mmol/L LAB HEMATOLOGY METHOD 06/14/2025 12:48 AM EDT [facility] Glucose, Whole Blood 143(H) 74 - 99 mg/dL LAB HEMATOLOGY METHOD 06/14/2025 12:48 AM EDT [facility] Ionized Calcium, Whole Blood 4.4(L) 4.6 - 5.1 mg/dL LAB HEMATOLOGY METHOD 06/14/2025 12:48 AM EDT [facility] Lactate, Arterial, Whole Blood 2.1(H) 0.5 - 1.6 mmol/L LAB HEMATOLOGY METHOD 06/14/2025 12:48 AM EDT [facility] Blood Arterial blood specimen / Unknown Arterial Puncture / Unknown 06/14/2025 12:41 AM EDT 06/14/2025 12:47 AM EDT us Roshan Haas APRN, [place] LAB BLOOD ORDERABLES Fi nal Result [facility] [address] [place] [address] * (ABNORMAL) Phosphorus (06/14/2025 12:41 AM EDT) Phosphorus, Plasma 6.6(H) 2.5 - 4.5 mg/dL 06/14/2025 1:18 AM EDT [facility] Blood Arterial blood specimen / Unknown Venipuncture / Unknown 06/14/2025 12:41 AM EDT 06/14/2025 12:47 AM EDT us Dyllan Paul MD LAB BLOOD ORDERABLES Final Re sult [facility] [address] [place] [address] * Magnesium (06/14/2025 12:41 AM EDT) Magnesium, Plasma 2.4 1.9 - 2.4 mg/dL 06/14/2025 1:18 AM EDT [facility] Blood Arterial blood specimen / Unknown Venipuncture / Unknown 06/14/2025 12:41 AM EDT 06/14/2025 12:47 AM EDT us Dyllan Paul MD LAB BLOOD ORDERABLES Final Re sult [facility] [address] [place] [address] * (ABNORMAL) Basic metabolic panel (06/14/2025 12:41 AM EDT) Glucose, Plasma 144(H) 74 - 99 mg/dL 06/14/2025 1:18 AM EDT [facility] BUN, Plasma 41(H) 8 - 23 mg/dL 06/14/2025 1:18 AM EDT [facility] Creatinine, Plasma 2.36(H) 0.70 - 1.20 mg/dL 06/14/2025 1:18 AM EDT [facility] BUN/Creatinine Ratio 17 06/14/2025 1:18 AM EDT [facility] Sodium, Plasma 141 136 - 145 mmol/L 06/14/2025 1:18 AM EDT [facility] Potassium, Plasma 4.8 3.6 - 4.9 mmol/L 06/14/2025 1:18 AM EDT [facility] Chloride, Plasma 107 97 - 107 mmol/L 06/14/2025 1:18 AM EDT [facility] CO2, Plasma 23 22 - 29 mmol/L 06/14/2025 1:18 AM EDT [facility] Anion Gap 11 6 - 16 mmol/L 06/14/2025 1:18 AM EDT [facility] Total Calcium, Plasma 7.9(L) 8.9 - 10.2 mg/dL 06/14/2025 1:18 AM EDT [facility] eGFRcr 28.9 mL/min/1.7 3m*2 06/14/2025 1:18 AM EDT [facility] Comment:Reported eGFRcr in m L/min/1.73m2 is based the CKD-EPI 2020 equation that does not use a race coefficient. Blood Arterial blood specimen / Unknown Venipuncture / Unknown 06/14/2025 12:41 AM EDT 06/14/2025 12:47 AM EDT us Dyllan Paul MD LAB BLOOD ORDERABLES Final Re sult [facility] [address] [place] [address] * (ABNORMAL) Hemogram (CBC) (06/14/2025 12:41 AM EDT) WBC Count 21.40(H) 3.70 - 10.30 10*3/uL LAB HEMATOLOGY METHOD 06/14/2025 12:56 AM EDT [facility] RBC Count 3.84(L) 4.60 - 6.10 10*6/uL LAB HEMATOLOGY METHOD 06/14/2025 12:56 AM EDT [facility] HGB 12.4(L) 13.7 - 17.5 g/dL LAB HEMATOLOGY METHOD 06/14/2025 12:56 AM EDT [facility] HCT 36.0(L) 40.0 - 51.0 % LAB HEMATOLOGY METHOD 06/14/2025 12:56 AM EDT [facility] Platelet Count 86(L) 155 - 369 10*3/uL LAB HEMATOLOGY METHOD 06/14/2025 12:56 AM EDT [facility] MCV 94 79 - 98 fL LAB HEMATOLOGY METHOD 06/14/2025 12:56 AM EDT [facility] MCH 32.3(H) 26.0 - 32.0 pg LAB HEMATOLOGY METHOD 06/14/2025 12:56 AM EDT [facility] MCHC 34.4 30.7 - 35.5 g/dL LAB HEMATOLOGY METHOD 06/14/2025 12:56 AM EDT [facility] RDW 16.1(H) 11.5 - 14.5 % LAB HEMATOLOGY METHOD 06/14/2025 12:56 AM EDT [facility] MPV 12.9(H) 8.8 - 12.5 fL LAB HEMATOLOGY METHOD 06/14/2025 12:56 AM EDT [facility] nRBC 0.0 <=0.0 per 100 WBCs LAB HEMATOLOGY METHOD 06/14/2025 12:56 AM EDT [facility] Blood Arterial blood specimen / Unknown Venipuncture / Unknown 06/14/2025 12:41 AM EDT 06/14/2025 12:47 AM EDT us Dyllan Paul MD LAB BLOOD ORDERABLES Final Re sult [facility] [address] [place] [address] * (ABNORMAL) Blood gas panel, arterial (06/13/2025 5:13 PM EDT) pH, Arterial 7.34 7.31 - 7.42 LAB HEMATOLOGY METHOD 06/13/2025 5:20 PM EDT [facility] pCO2, Arterial 47(H) 32 - 45 mmHg LAB HEMATOLOGY METHOD 06/13/2025 5:20 PM EDT [facility] pO2, Arterial 72 >70 mmHg LAB HEMATOLOGY METHOD 06/13/2025 5:20 PM EDT [facility] SO2, Measured, Arterial 94 94 - 98 % LAB HEMATOLOGY METHOD 06/13/2025 5:20 PM EDT [facility] Base Excess, Arterial -1.1 -2.0 - 3.0 mmol/L LAB HEMATOLOGY METHOD 06/13/2025 5:20 PM EDT [facility] Bicarbonate, Calculated, Arterial 25 22 - 26 mmol/L LAB HEMATOLOGY METHOD 06/13/2025 5:20 PM EDT [facility] Hematocrit, Whole Blood 38.3(L) 40.0 - 51.0 % LAB HEMATOLOGY METHOD 06/13/2025 5:20 PM EDT [facility] Sodium, Whole Blood 139 136 - 145 mmol/L LAB HEMATOLOGY METHOD 06/13/2025 5:20 PM EDT [facility] Potassium, Whole Blood 4.0 3.6 - 4.9 mmol/L LAB HEMATOLOGY METHOD 06/13/2025 5:20 PM EDT [facility] Chloride, Whole Blood 107 97 - 107 mmol/L LAB HEMATOLOGY METHOD 06/13/2025 5:20 PM EDT [facility] Glucose, Whole Blood 143(H) 74 - 99 mg/dL LAB HEMATOLOGY METHOD 06/13/2025 5:20 PM EDT [facility] Ionized Calcium, Whole Blood 4.4(L) 4.6 - 5.1 mg/dL LAB HEMATOLOGY METHOD 06/13/2025 5:20 PM EDT [facility] Lactate, Arterial, Whole Blood 2.0(H) 0.5 - 1.6 mmol/L LAB HEMATOLOGY METHOD 06/13/2025 5:20 PM EDT [facility] Blood Arterial blood specimen / Unknown Arterial Puncture / Unknown 06/13/2025 5:13 PM EDT 06/13/2025 5:19 PM EDT Roshan Haas APRN, DNP LAB BLOOD ORDERABLES Fi nal Result Performing Organization Address City/[facility]/ZIP Co de Phone Number [facility] [address] [place] [address] * Ionized calcium, whole blood (06/13/2025 3:35 PM EDT) Ionized Calcium, Whole Blood 4.6 4.6 - 5.1 mg/dL LAB HEMATOLOGY METHOD 06/13/2025 4:00 PM EDT [facility] Blood Venous blood specimen / Unknown Venipuncture / Unknown 06/13/2025 3:35 PM EDT 06/13/2025 3:57 PM EDT Roshan Haas APRN, DNP LAB BLOOD ORDERABLES Fi nal Result [facility] [address] [place] [address] * Magnesium, Plasma (06/13/2025 3:35 PM EDT) Magnesium, Plasma 2.3 1.9 - 2.4 mg/dL 06/13/2025 4:23 PM EDT [facility] Blood Venous blood specimen / Unknown Venipuncture / Unknown 06/13/2025 3:35 PM EDT 06/13/2025 3:51 PM EDT us Roshan Haas APRN, DNP LAB BLOOD ORDERABLES Fi nal Result [facility] [address] [place] [address] * (ABNORMAL) Renal function panel (06/13/2025 3:35 PM EDT) Glucose, Plasma 148(H) 74 - 99 mg/dL 06/13/2025 4:23 PM EDT [facility] BUN, Plasma 31(H) 8 - 23 mg/dL 06/13/2025 4:23 PM EDT [facility] Creatinine, Plasma 2.02(H) 0.70 - 1.20 mg/dL 06/13/2025 4:23 PM EDT [facility] BUN/Creatinine Ratio 15 06/13/2025 4:23 PM EDT [facility] Sodium, Plasma 143 136 - 145 mmol/L 06/13/2025 4:23 PM EDT [facility] Potassium, Plasma 4.7 3.6 - 4.9 mmol/L 06/13/2025 4:23 PM EDT [facility] Chloride, Plasma 108(H) 97 - 107 mmol/L 06/13/2025 4:23 PM EDT [facility] CO2, Plasma 22 22 - 29 mmol/L 06/13/2025 4:23 PM EDT [facility] Anion Gap 13 6 - 16 mmol/L 06/13/2025 4:23 PM EDT [facility] Total Calcium, Plasma 8.2(L) 8.9 - 10.2 mg/dL 06/13/2025 4:23 PM EDT [facility] Phosphorus, Plasma 7.4(H) 2.5 - 4.5 mg/dL 06/13/2025 4:23 PM EDT [facility] Albumin, Plasma 2.6(L) 3.5 - 5.2 g/dL 06/13/2025 4:23 PM EDT [facility] eGFRcr 34.8 mL/min/1.7 3m*2 06/13/2025 4:23 PM EDT [facility] Comment:Reported eGFRcr in m L/min/1.73m2 is based the CKD-EPI 2020 equation that does not use a race coefficient. Blood Venous blood specimen / Unknown Venipuncture / Unknown 06/13/2025 3:35 PM EDT 06/13/2025 3:51 PM EDT Roshan Haas APRN, L[place]ILA LAB BLOOD ORDERABLES Fi nal Result Performing Organization Address City/[facility] Co de Phone Number [facility] [address] [place] [address] * (ABNORMAL) Hemoglobin and hematocrit, blood (06/13/2025 11:57 AM EDT) HGB 12.8(L) 13.7 - 17.5 g/dL LAB HEMATOLOGY METHOD 06/13/2025 12:26 PM EDT [facility] HCT 37.2(L) 40.0 - 51.0 % LAB HEMATOLOGY METHOD 06/13/2025 12:26 PM EDT [facility] Blood Arterial blood specimen / Unknown Arterial Line / Unknown 06/13/2025 11:57 AM EDT 06/13/2025 12:17 PM EDT Roshan Haas APRN, [place] LAB BLOOD ORDERABLES Fi nal Result Performing Organization Address [facility] Co de Phone Number [facility] [address] [place] [address] * (ABNORMAL) Blood gas panel, arterial (06/13/2025 11:30 AM EDT) pH, Arterial 7.34 7.31 - 7.42 LAB HEMATOLOGY METHOD 06/13/2025 11:37 AM EDT [facility] pCO2, Arterial 45 32 - 45 mmHg LAB HEMATOLOGY METHOD 06/13/2025 11:37 AM EDT [facility] pO2, Arterial 82 >70 mmHg LAB HEMATOLOGY METHOD 06/13/2025 11:37 AM EDT [facility] SO2, Measured, Arterial 96 94 - 98 % LAB HEMATOLOGY METHOD 06/13/2025 11:37 AM EDT [facility] Base Excess, Arterial -1.7 -2.0 - 3.0 mmol/L LAB HEMATOLOGY METHOD 06/13/2025 11:37 AM EDT [facility] Bicarbonate, Calculated, Arterial 24 22 - 26 mmol/L LAB HEMATOLOGY METHOD 06/13/2025 11:37 AM EDT [facility] Hematocrit, Whole Blood 39.0(L) 40.0 - 51.0 % LAB HEMATOLOGY METHOD 06/13/2025 11:37 AM EDT [facility] Sodium, Whole Blood 140 136 - 145 mmol/L LAB HEMATOLOGY METHOD 06/13/2025 11:37 AM EDT [facility] Potassium, Whole Blood 3.9 3.6 - 4.9 mmol/L LAB HEMATOLOGY METHOD 06/13/2025 11:37 AM EDT [facility] Chloride, Whole Blood 108(H) 97 - 107 mmol/L LAB HEMATOLOGY METHOD 06/13/2025 11:37 AM EDT [facility] Glucose, Whole Blood 145(H) 74 - 99 mg/dL LAB HEMATOLOGY METHOD 06/13/2025 11:37 AM EDT [facility] Ionized Calcium, Whole Blood 4.5(L) 4.6 - 5.1 mg/dL LAB HEMATOLOGY METHOD 06/13/2025 11:37 AM EDT [facility] Lactate, Arterial, Whole Blood 2.3(H) 0.5 - 1.6 mmol/L LAB HEMATOLOGY METHOD 06/13/2025 11:37 AM EDT [facility] Blood Arterial blood specimen / Unknown Arterial Puncture / Unknown 06/13/2025 11:30 AM EDT 06/13/2025 11:36 AM EDT us Roshan Haas APRN, DNP LAB BLOOD ORDERABLES Fi nal Result [facility] [address] [place] [address] * CT CRITICAL CARE, ADDL 30 MIN (06/13/2025 10:48 [...] and nursing services were present on rounds. Roshan Haas APRN, DNP IN CLINIC/BEDSIDE ORDER LOYD Final Result * (ABNORMAL) Blood gas panel, arterial (06/13/2025 4:53 AM EDT) pH, Arterial 7.35 7.31 - 7.42 LAB HEMATOLOGY METHOD 06/13/2025 5:10 AM EDT [facility] pCO2, Arterial 46(H) 32 - 45 mmHg LAB HEMATOLOGY METHOD 06/13/2025 5:10 AM EDT [facility] pO2, Arterial 85 >70 mmHg LAB HEMATOLOGY METHOD 06/13/2025 5:10 AM EDT [facility] SO2, Measured, Arterial 97 94 - 98 % LAB HEMATOLOGY METHOD 06/13/2025 5:10 AM EDT [facility] Base Excess, Arterial -0.8 -2.0 - 3.0 mmol/L LAB HEMATOLOGY METHOD 06/13/2025 5:10 AM EDT [facility] Bicarbonate, Calculated, Arterial 25 22 - 26 mmol/L LAB HEMATOLOGY METHOD 06/13/2025 5:10 AM EDT [facility] Hematocrit, Whole Blood 38.7(L) 40.0 - 51.0 % LAB HEMATOLOGY METHOD 06/13/2025 5:10 AM EDT [facility] Sodium, Whole Blood 141 136 - 145 mmol/L LAB HEMATOLOGY METHOD 06/13/2025 5:10 AM EDT [facility] Potassium, Whole Blood 3.6 3.6 - 4.9 mmol/L LAB HEMATOLOGY METHOD 06/13/2025 5:10 AM EDT [facility] Chloride, Whole Blood 109(H) 97 - 107 mmol/L LAB HEMATOLOGY METHOD 06/13/2025 5:10 AM EDT [facility] Glucose, Whole Blood 137(H) 74 - 99 mg/dL LAB HEMATOLOGY METHOD 06/13/2025 5:10 AM EDT [facility] Ionized Calcium, Whole Blood 4.4(L) 4.6 - 5.1 mg/dL LAB HEMATOLOGY METHOD 06/13/2025 5:10 AM EDT [facility] Lactate, Arterial, Whole Blood 2.5(H) 0.5 - 1.6 mmol/L LAB HEMATOLOGY METHOD 06/13/2025 5:10 AM EDT [facility] Blood Arterial blood specimen / Unknown Arterial Line / Unknown 06/13/2025 4:53 AM EDT 06/13/2025 5:08 AM EDT us Jones Burdick SITE INSPECTOR LAB BLOOD ORDERABLES Francia l Result [facility] [address] [place] [address] * (ABNORMAL) Ionized calcium, whole blood (06/13/2025 4:53 AM EDT) Ionized Calcium, Whole Blood 4.4(L) 4.6 - 5.1 mg/dL LAB HEMATOLOGY METHOD 06/13/2025 5:13 AM EDT [facility] Blood Arterial blood specimen / Unknown Arterial Line / Unknown 06/13/2025 4:53 AM EDT 06/13/2025 5:10 AM EDT us Raymond Katz SITE INSPECTOR LAB BLOOD ORDERABLES Final Re sult [facility] [address] [place] [address] * PERIPHERAL IV (SMARTFORM LINK) (06/13/2025 4:14 [...] LAB HEMATOLOGY METHOD 06/13/2025 12:43 AM EDT [facility] RBC Count 4.03(L) 4.60 - 6.10 10*6/uL LAB HEMATOLOGY METHOD 06/13/2025 12:43 AM EDT [facility] HGB 13.1(L) 13.7 - 17.5 g/dL LAB HEMATOLOGY METHOD 06/13/2025 12:43 AM EDT [facility] HCT 37.1(L) 40.0 - 51.0 % LAB HEMATOLOGY METHOD 06/13/2025 12:43 AM EDT [facility] Platelet Count 77(L) 155 - 369 10*3/uL LAB HEMATOLOGY METHOD 06/13/2025 12:43 AM EDT [facility] MCV 92 79 - 98 fL LAB HEMATOLOGY METHOD 06/13/2025 12:43 AM EDT [facility] MCH 32.5(H) 26.0 - 32.0 pg LAB HEMATOLOGY METHOD 06/13/2025 12:43 AM EDT [facility] MCHC 35.3 30.7 - 35.5 g/dL LAB HEMATOLOGY METHOD 06/13/2025 12:43 AM EDT [facility] RDW 16.1(H) 11.5 - 14.5 % LAB HEMATOLOGY METHOD 06/13/2025 12:43 AM EDT [facility] MPV 12.8(H) 8.8 - 12.5 fL LAB HEMATOLOGY METHOD 06/13/2025 12:43 AM EDT [facility] nRBC 0.6(H) <=0.0 per 100 WBCs LAB HEMATOLOGY METHOD 06/13/2025 12:43 AM EDT [facility] Blood Arterial blood specimen / Unknown Arterial Line / Unknown 06/13/2025 12:26 AM EDT 06/13/2025 12:31 AM EDT us Raymond Katz APRN LAB BLOOD ORDERABLES Final Re sult Performing Organization Address [facility]/ZIP Co de Phone Number [facility] [address] [place] [address] * Richar auris Surveillance by PCR (06/12/2025 10:48 PM EDT) Richar auris PCR Result Not Detected Not Detected 06/13/2025 11:46 AM EDT [facility] Swab (Axilla and Groin) Non-blood Collection / Unknown 06/12/2025 10:48 PM EDT 06/12/2025 11:08 PM EDT Narrative [facility] - 06/13/2025 11:46 AM EDT This PCR assay was developed and its performance characteristics determined by [facility] as appropriate for clinical purposes. This assay has not been cleared or approved by the FDA, but is performed in a CLIA regulated laboratory that is qualified to perform high-complexity testing. us Dyllan Paul MD LAB MICROBIOLOGY - GENERAL OR DERABLES Final Result Performing Organization Address City/[facility]/ZIP Co de Phone Number [facility] [address] [place] [address] * Multi Drug Resistance Test (06/12/2025 10:48 PM EDT) Culture No growth at day 1 06/14/2025 12:06 AM EDT [facility] Swab (Nares and Cari Rectal) Non-blood Collection / Unknown 06/12/2025 10:48 PM EDT 06/12/2025 11:08 PM EDT Narrative [facility] - 06/14/2025 12:06 AM EDT This test was developed and its performance characteristics determined by the [facility]. Although the media is FDA-approved, it is not FDA-approved for all specimen types submitted. The FDA has determined that such clearance or approval is not necessary. This test is used for surveillance purposes. It should not be regarded as investigational or for research. The [facility] is certified under the Clinical Laboratory Improvement Amendments of 1988 (CLIA-88) as qualified to perform high complexity clinical laboratory testing. Dyllan Paul MD LAB MICROBIOLOGY - GENERAL OR DERABLES Final Result [facility] [address] [place] [address] * (ABNORMAL) Blood gas panel, arterial (06/12/2025 10:47 PM EDT) pH, Arterial 7.35 7.31 - 7.42 LAB HEMATOLOGY METHOD 06/12/2025 10:53 PM EDT [facility] pCO2, Arterial 45 32 - 45 mmHg LAB HEMATOLOGY METHOD 06/12/2025 10:53 PM EDT [facility] pO2, Arterial 163 >70 mmHg LAB HEMATOLOGY METHOD 06/12/2025 10:53 PM EDT [facility] SO2, Measured, Arterial 100(H) 94 - 98 % LAB HEMATOLOGY METHOD 06/12/2025 10:53 PM EDT [facility] Base Excess, Arterial -0.9 -2.0 - 3.0 mmol/L LAB HEMATOLOGY METHOD 06/12/2025 10:53 PM EDT [facility] Bicarbonate, Calculated, Arterial 25 22 - 26 mmol/L LAB HEMATOLOGY METHOD 06/12/2025 10:53 PM EDT [facility] Hematocrit, Whole Blood 39.8(L) 40.0 - 51.0 % LAB HEMATOLOGY METHOD 06/12/2025 10:53 PM EDT [facility] Sodium, Whole Blood 143 136 - 145 mmol/L LAB HEMATOLOGY METHOD 06/12/2025 10:53 PM EDT [facility] Potassium, Whole Blood 3.6 3.6 - 4.9 mmol/L LAB HEMATOLOGY METHOD 06/12/2025 10:53 PM EDT [facility] Chloride, Whole Blood 110(H) 97 - 107 mmol/L LAB HEMATOLOGY METHOD 06/12/2025 10:53 PM EDT [facility] Glucose, Whole Blood 142(H) 74 - 99 mg/dL LAB HEMATOLOGY METHOD 06/12/2025 10:53 PM EDT [facility] Ionized Calcium, Whole Blood 4.6 4.6 - 5.1 mg/dL LAB HEMATOLOGY METHOD 06/12/2025 10:53 PM EDT [facility] Lactate, Arterial, Whole Blood 2.3(H) 0.5 - 1.6 mmol/L LAB HEMATOLOGY METHOD 06/12/2025 10:53 PM EDT [facility] Blood Arterial blood specimen / Unknown Arterial Puncture / Unknown 06/12/2025 10:47 PM EDT 06/12/2025 10:52 PM EDT Raymond Katz APRN LAB BLOOD ORDERABLES Final Re sult [facility] [address] [place] [address] * CT CRITICAL CARE, ADDL 30 MIN, CT CRITICAL CARE, ADDL 30 MIN, CT CRITICAL CARE, ADDL 30 MIN (06/12/2025 10:22 [...] for testing. Comment 06/12/2025 10:21 PM EDT [facility] Armorer Technician ID Nikolay Mccall 06/12/2025 10:21 PM EDT [facility] Device ID [id number] 06/12/2025 10:21 PM EDT [facility] Specimen Type POC Capillary 06/12/2025 10:21 PM EDT [facility] Blood Capillary blood specimen / Unknown 06/12/2025 10:19 PM EDT 06/12/2025 10:21 PM EDT us Dyllan Paul MD LAB POINT OF CARE TE ST DOCKED DEVICE UNSOLICITED RESULTS Final Result [facility] [address] [place] [address] * XR Chest 1 View (06/12/2025 9:54 [...] on 06/12/2025 10:00 PM us Raymond Katz SITE INSPECTOR IMG XR PROCEDURES Final Resul t * (ABNORMAL) APTT (06/12/2025 9:27 PM EDT) aPTT 37(H) 25 - 35 sec LAB COAGULATION METHOD 06/12/2025 10:04 PM EDT [facility] Blood Arterial blood specimen / Unknown Arterial Line / Unknown 06/12/2025 9:27 PM EDT 06/12/2025 9:42 PM EDT Dyllan Paul MD LAB BLOOD ORDERABLES Final Re sult [facility] [address] [place] [address] * (ABNORMAL) Protime-INR (06/12/2025 9:27 PM EDT) [facility] Signature Prothrombin Time 20.7(H) 12.0 - 14.3 sec LAB COAGULATION METHOD 06/12/2025 10:04 PM EDT [facility] INR 1.8(H) 0.9 - 1.1 LAB COAGULATION METHOD 06/12/2025 10:04 PM EDT [facility] Blood Arterial blood specimen / Unknown Arterial Line / Unknown 06/12/2025 9:27 PM EDT 06/12/2025 9:42 PM EDT Narrative [facility] - 06/12/2025 10:04 PM EDT OPTIMAL INR RANGES FOR PATIENT ON ORAL ANTICOAGULANT THERAPY Prevention of venous thromboembolism INR 2.0 to 3.0 In patients with heart disease: Atrial fibrillation INR 2.0 to 3.0 Valvular heart disease INR 2.0 to 3.0 Tissue heart valves INR 2.0 to 3.0 Mechanical prosthetic valves INR 2.5 to 3.5 Prevention of recurrent MO INR 2.5 to 3.5 Dyllan Paul MD LAB BLOOD ORDERABLES Final Re sult Performing Organization Address City/[facility]/ZIP Co de Phone Number [facility] [address] [place] [address] * (ABNORMAL) Phosphorus (06/12/2025 9:27 PM EDT) [facility] Phosphorus, Plasma 5.1(H) 2.5 - 4.5 mg/dL 06/12/2025 10:12 PM EDT [facility] Blood Arterial blood specimen / Unknown Arterial Line / Unknown 06/12/2025 9:27 PM EDT 06/12/2025 9:42 PM EDT Dyllan Paul MD LAB BLOOD ORDERABLES Final Re sult [facility] [address] [place] [address] * (ABNORMAL) Magnesium (06/12/2025 9:27 PM EDT) Magnesium, Plasma 1.5(L) 1.9 - 2.4 mg/dL 06/12/2025 10:12 PM EDT [facility] Blood Arterial blood specimen / Unknown Arterial Line / Unknown 06/12/2025 9:27 PM EDT 06/12/2025 9:42 PM EDT us Dyllan Paul MD LAB BLOOD ORDERABLES Final Re sult [facility] [address] [place] [address] * (ABNORMAL) Comprehensive metabolic panel (06/12/2025 9:27 PM EDT) Glucose, Plasma 148(H) 74 - 99 mg/dL 06/12/2025 10:12 PM EDT [facility] BUN, Plasma 17 8 - 23 mg/dL 06/12/2025 10:12 PM EDT [facility] Creatinine, Plasma 1.06 0.70 - 1.20 mg/dL 06/12/2025 10:12 PM EDT [facility] BUN/Creatinine Ratio 16 06/12/2025 10:12 PM EDT [facility] Sodium, Plasma 143 136 - 145 mmol/L 06/12/2025 10:12 PM EDT [facility] Potassium, Plasma 4.1 3.6 - 4.9 mmol/L 06/12/2025 10:12 PM EDT [facility] Chloride, Plasma 109(H) 97 - 107 mmol/L 06/12/2025 10:12 PM EDT [facility] CO2, Plasma 22 22 - 29 mmol/L 06/12/2025 10:12 PM EDT [facility] Anion Gap 12 6 - 16 mmol/L 06/12/2025 10:12 PM EDT [facility] Total Calcium, Plasma 8.5(L) 8.9 - 10.2 mg/dL 06/12/2025 10:12 PM EDT [facility] Total Protein 4.2(L) 6.3 - 7.9 g/dL 06/12/2025 10:12 PM EDT [facility] Albumin, Plasma 2.6(L) 3.5 - 5.2 g/dL 06/12/2025 10:12 PM EDT [facility] AST, Plasma 71(H) 10 - 50 U/L 06/12/2025 10:12 PM EDT [facility] Comment:Hemolyzed, result ma y be falsely increased. ALT, Plasma 39 10 - 50 U/L 06/12/2025 10:12 PM EDT [facility] Alkaline Phosphatase, Plasma 109 40 - 115 U/L 06/12/2025 10:12 PM EDT [facility] Total Bilirubin, Plasma 2.8(H) 0.2 - 1.1 mg/dL 06/12/2025 10:12 PM EDT [facility] eGFRcr 75.5 mL/min/1.7 3m*2 06/12/2025 10:12 PM EDT [facility] Comment:Reported eGFRcr in m L/min/1.73m2 is based the CKD-EPI 2020 equation that does not use a race coefficient. Blood Arterial blood specimen / Unknown Arterial Line / Unknown 06/12/2025 9:27 PM EDT 06/12/2025 9:42 PM EDT us Dyllan Paul MD LAB BLOOD ORDERABLES Final Re sult [facility] [address] [place] [address] * (ABNORMAL) CBC W/O Differential (06/12/2025 9:27 PM EDT) WBC Count 11.67(H) 3.70 - 10.30 10*3/uL LAB HEMATOLOGY METHOD 06/12/2025 10:23 PM EDT [facility] RBC Count 3.91(L) 4.60 - 6.10 10*6/uL LAB HEMATOLOGY METHOD 06/12/2025 10:23 PM EDT [facility] HGB 12.5(L) 13.7 - 17.5 g/dL LAB HEMATOLOGY METHOD 06/12/2025 10:23 PM EDT [facility] HCT 36.2(L) 40.0 - 51.0 % LAB HEMATOLOGY METHOD 06/12/2025 10:23 PM EDT [facility] Platelet Count 70(L) 155 - 369 10*3/uL LAB HEMATOLOGY METHOD 06/12/2025 10:23 PM EDT [facility] MCV 93 79 - 98 fL LAB HEMATOLOGY METHOD 06/12/2025 10:23 PM EDT [facility] MCH 32.0 26.0 - 32.0 pg LAB HEMATOLOGY METHOD 06/12/2025 10:23 PM EDT [facility] MCHC 34.5 30.7 - 35.5 g/dL LAB HEMATOLOGY METHOD 06/12/2025 10:23 PM EDT [facility] RDW 16.0(H) 11.5 - 14.5 % LAB HEMATOLOGY METHOD 06/12/2025 10:23 PM EDT [facility] MPV 12.8(H) 8.8 - 12.5 fL LAB HEMATOLOGY METHOD 06/12/2025 10:23 PM EDT [facility] nRBC 0.4(H) <=0.0 per 100 WBCs LAB HEMATOLOGY METHOD 06/12/2025 10:23 PM EDT [facility] Blood Arterial blood specimen / Unknown Arterial Line / Unknown 06/12/2025 9:27 PM EDT 06/12/2025 9:43 PM EDT us Dyllan Paul MD LAB BLOOD ORDERABLES Final Re sult [facility] [address] [place] [address] * (ABNORMAL) POCT arterial blood gas gem (06/12/2025 9:19 PM EDT) pH, Arterial 7.34 7.31 - 7.42 06/12/2025 9:20 PM EDT [facility] pCO2, Arterial 44 32 - 45 mm Hg 06/12/2025 9:20 PM EDT [facility] pO2, Arterial 81 >70 mm Hg 06/12/2025 9:20 PM EDT [facility] SO2, Arterial 98 94 - 98 % 06/12/2025 9:20 PM EDT [facility] Base Excess, Arterial -2.2(L) -2 - 3 mmol/L 06/12/2025 9:20 PM EDT [facility] HCO3, Arterial 23.7 22 - 26 mmol/L 06/12/2025 9:20 PM EDT [facility] Total Hemoglobin, Arterial, Whole Blood 12.2(L) 13.7 - 17.5 g/dL 06/12/2025 9:20 PM EDT [facility] Hematocrit, Arterial 37.0(L) 40 - 51.0 % 06/12/2025 9:20 PM EDT [facility] Sodium, Arterial 141 136 - 145 mmol/L 06/12/2025 9:20 PM EDT [facility] Potassium, Arterial 3.4(L) 3.6 - 4.9 mmol/L 06/12/2025 9:20 PM EDT [facility] Chloride, Whole Blood 112(H) 97 - 107 mmol/L 06/12/2025 9:20 PM T [facility] Glucose, Arterial 129(H) 74 - 99 mg/dL 06/12/2025 9:20 PM T [facility] Ionized Calcium, Arterial 4.5(L) 4.6 - 5.1 mg/dL 06/12/2025 9:20 PM T [facility] Lactate, Arterial 2.4(H) 0.5 - 1.6 mmol/L 06/12/2025 9:20 PM EDT [facility] Body Temperature 37.0 Celsius 06/12/2025 9:20 PM T [facility] pH, Temp Corrected, Arterial 7.34 7.31 - 7.42 06/12/2025 9:20 PM T [facility] pCO2, Temp Corrected, Arterial 44 32 - 45 mm Hg 06/12/2025 9:20 PM T [facility] pO2, Temp Corrected, Arterial 81 >70 mm Hg 06/12/2025 9:20 PM EDT [facility] Armorer Technician ID Dyllan Wong 06/12/2025 9:20 PM T [facility] Blood, Arterial Whole blood specimen / Unknown 06/12/2025 9:19 PM EDT 06/12/2025 9:20 PM EDT Dyllan Paul MD LAB POINT OF CARE TE ST DOCKED DEVICE UNSOLICITED RESULTS Final Result [facility] [address] [place] [address] * (ABNORMAL) POCT venous blood gas gem (06/12/2025 7:35 PM EDT) pH, Venous 7.29(L) 7.32 - 7.43 06/12/2025 7:36 PM EDT [facility] pCO2, Venous 56(H) 40 - 55 mm Hg 06/12/2025 7:36 PM EDT [facility] pO2, Venous 55(H) 25 - 40 mm Hg 06/12/2025 7:36 PM EDT [facility] SO2, Venous 83(H) 65 - 80 % 06/12/2025 7:36 PM EDT [facility] Base Excess/Deficit, Venous -0.5 -2 - 3 mmol/L 06/12/2025 7:36 PM EDT [facility] HCO3, Venous 26.9(H) 22 - 26 mmol/L 06/12/2025 7:36 PM EDT [facility] Hemoglobin, Venous 11.9(L) 13.7 - 17.5 g/dL 06/12/2025 7:36 PM EDT [facility] Hematocrit, Venous 36.0(L) 40.0 - 51.0 % 06/12/2025 7:36 PM EDT [facility] Sodium, Venous 142 136 - 145 mmol/L 06/12/2025 7:36 PM EDT [facility] Potassium, Venous 3.5(L) 3.6 - 4.9 mmol/L 06/12/2025 7:36 PM EDT [facility] POCT Chloride, Venous 107 97 - 107 mmol/L 06/12/2025 7:36 PM EDT [facility] Glucose, Venous 120(H) 74 - 99 mg/dL 06/12/2025 7:36 PM EDT [facility] Ionized Calcium, Venous 4.0(L) 4.6 - 5.1 mg/dL 06/12/2025 7:36 PM EDT [facility] Lactate, Venous 1.8 0.5 - 2.2 mmol/L 06/12/2025 7:36 PM EDT [facility] Body Temperature 37.0 Celsius 06/12/2025 7:36 PM EDT [facility] pH, Temp Corrected, Venous 7.29(L) 7.32 - 7.43 06/12/2025 7:36 PM EDT [facility] pCO2, Temp Corrected, Venous 56(H) 40 - 55 mm Hg 06/12/2025 7:36 PM EDT [facility] pO2, Temp Corrected, Venous 55(H) 25 - 40 mm Hg 06/12/2025 7:36 PM EDT [facility] Armorer Technician ID Dyllan Wong 06/12/2025 7:36 PM EDT [facility] Blood, Venous Whole blood specimen / Unknown 06/12/2025 7:35 PM EDT 06/12/2025 7:36 PM EDT us Dyllan Paul MD LAB POINT OF CARE TE ST DOCKED DEVICE UNSOLICITED RESULTS Final Result Performing Organization Address City/State/[facility] de Phone Number [facility] [address] [place] [address] * Transfuse RBC (06/12/2025 7:16 PM EDT) us Afshin Reece MD BLOOD TRANSFUSION ORDERABLES Final Result * Transfuse RBC (06/12/2025 7:02 PM EDT) Afshin Reece MD BLOOD TRANSFUSION ORDERABLES Final Result * Prepare Leukocyte Reduced RBC: 4 Units (06/12/2025 6:49 PM EDT) Pathologist [facility] Product Code [id number] BLOO D BANK Dispense Status Returned BLOOD BANK Blood Expiration Date BLOOD BANK Unit Number [id number] CH B LOOD BANK Product Blood Type 5100 BLOOD BANK Blood Type O+ CH BLOOD BANK Crossmatch Compatible BLOOD BANK Product Code [id number] BLOO D BANK Dispense Status Returned BLOOD BANK Blood Expiration Date BLOOD BANK Unit Number [id number] CH B LOOD BANK Product Blood Type 5100 BLOOD BANK Blood Type O+ BLOOD BANK Crossmatch Compatible BLOOD BANK Product Code [id number] BLOO D BANK Dispense Status Transfused BLOOD BANK Blood Expiration Date BLOOD BANK Unit Number [id number] CH B LOOD BANK Product Blood Type 5100 CH BLOOD BANK Blood Type O+ CH BLOOD BANK Crossmatch Compatible CH BLOOD BANK Product Code [id number] CH BLOO D BANK Dispense Status Transfused CH BLOOD BANK Blood Expiration Date [id number] BLOOD BANK Unit Number [id number] CH B LOOD BANK Product Blood Type 5100 CH BLOOD BANK Blood Type O+ CH BLOOD BANK Crossmatch Compatible BLOOD BANK Other us Afshin Reece MD BLOOD BANK PRODUCT ORDERABLES Edited Result - Final BLOOD BANK [address] [place] [address], * Surgical Pathology Exam (06/12/2025 6:07 PM EDT) Case Report Surgical Pathology Case: [id number] Authorizing Provider: Dyllan Paul MD Collected: 06/12/20251806 Ordering Location: [facility] Received: 06/13/2025 0811 Pathologist: Aliza Daugherty MD Specimens: A) - Other (specify site), Prostate and seminal vesicles - fresh for permanent B) - Other (specify site), Bilateral pelvic lymph nodes - permanent 06/19/2025 10:43 AM EDT [facility] Final Diagnosis A. PROSTATE AND SEMINAL VESICLES, [...] LYMPH NODES (0/8). 06/19/2025 10:43 AM EDT [facility] at 1043 EDT Synoptic Checklist [...] (usual) Histologic Grade: Grade: Grade group 3 ([place] Score 4 + 3 = 7) Minor [...] Acute and chronic 06/19/2025 10:43 AM EDT [facility] Clinical Information PROSTATE CANCER 06/19/2025 10:43 AM EDT [facility] Gross Description A. PROSTATE AND SEMINAL VESICLES - FRESH FOR PERMANENT Specimen label: Prostate and seminal vesicles Specimen fixation: Formalin Specimen type: Radical Prostatectomy Specimen Weight: 75 grams Specimen Size: The prostate measures 5.0 cm xajb-uw-clbx, 5.1 cm lvfsdrfv-er-gilyqj ior, and 7.3 cm kqqy-wm-epcsn. The left seminal vesicle measures 1.5 x [...] cassettes. The prostate is serially sectioned from hsnf-fq-gojq into 9, 5mm slices. Serial sections reveal [...] Cold Time: <1m 06/19/2025 10:43 AM EDT [facility] Note: A resident was involved in the service. I attest I examined the relevant preparations for the specimens and confirmed the diagnosis or interpretation. 06/19/2025 10:43 AM EDT [facility] Tissue Topography unknown / Unknown 06/12/2025 6:07 PM EDT 06/13/2025 8:11 AM EDT Comment:Pre-op diagnosis: PROSTATE CANCER Lymph node tissue specimen (specimen) Topography unknown / Unknown 06/12/2025 6:08 PM EDT 06/13/2025 8:11 AM EDT Comment:Pre-op diagnosis: PROSTATE CANCER Dyllan Paul MD LAB PATHOLOGY ORDERABLES Francia lezama Result [facility] [address] [place] [address] * POCT glucose meter (06/12/2025 1:21 PM EDT) POCT Glucose 83 74 - 99 mg/dL 06/12/2025 1:23 PM EDT [facility] Comment:Accuracy of a glucos e result [...] for testing. Comment 06/12/2025 1:23 PM EDT [facility] Armorer Technician ID Carol Proctor 06/12/2025 1:23 PM EDT [facility] Device ID [id number] 06/12/2025 1:23 PM EDT [facility] Specimen Type POC Venous 06/12/2025 1:23 PM EDT [facility] Blood Venous blood specimen / Unknown 06/12/2025 1:21 PM EDT 06/12/2025 1:23 PM EDT us Dyllan Paul MD LAB POINT OF CARE TE ST DOCKED DEVICE UNSOLICITED RESULTS Final Result Performing Organization Address City/[facility] Co de Phone Number [facility] [address] [place] [address] * Type and Screen (06/12/2025 1:14 PM [...] BLOOD BANK TEST ORDERABLE S Final Result Performing Organization Address City/[facility] Co de Phone Number BLOOD BANK [address] [place] [address], [place] * Phosphatidylethanol (PEth), Whole Blood, Quantitative (06/12/2025 1:14 PM EDT) PEth 16:0/18:2 (PLPEth) 251 ng/mL 06/14/2025 11:37 AM EDT [facility] ([facility]) PEth 16:0/18:1 (POPEth) 260 ng/mL 06/14/2025 11:37 AM EDT [facility] ([facility]) EER Peth See Note 06/14/2025 11:37 AM EDT [facility] ([facility]) PEth Interpretation See Comment 06/14/2025 11:37 AM EDT [facility] ([facility]) Blood Venous blood specimen / Unknown Venipuncture / Unknown 06/12/2025 1:14 PM EDT 06/12/2025 1:43 PM EDT Narrative [facility] ([facility]) - 06/14/2025 11:37 AM EDT PEth 16:0/18:1 (POPEth) Less than 10 ng/mL............Not detected Less than 20 ng/mL............Abstinence or light alcohol consumption 20 - 200 ng/mL................Moderate alcohol consumption Greater than 200 ng/mL........Heavy alcohol consumption or chronic alcohol use (Reference: Nichole Means and Mike Lowe 2018 J. Forensic Sci) Reference ranges are not well established. Authorized individuals can access the [employer] Enhanced Report with an [facility] Connect account using the following link. Your local lab can assist you in obtaining the patient report if you don't have a Connect account. [email or web address] Phosphatidylethanol (PEth) is a group of phospholipids [...] may have falsely elevated PEth concentrations (Arabella DMOINIQUE et al 2018, Alcoholism Clinical & Experimental Research). This test was developed and its performance characteristics determined by [facility]. It has not been cleared or approved by the U.S. Food and Drug Administration. This test was performed in a CLIA-certified laboratory and is intended for clinical purposes. Performed By: [facility] [address] [place] [address] Set Rider: Sotero Banuelos MD, PhD CLIA Number: [id number] us Dyllan Paul MD LAB REF LAB BLOOD AND FLUID O RD Final Result [facility] ([facility]) [address] [place] [address] documented in this encounter Visit Diagnoses Diagnosis [...] 5,000 Units, Subcutaneous, Once, 1 dose, On [place] 06/12/25 at 1515, Routine, Holding - Preprocedure Given 06/12/2025 2:31 PM EDT 5,000 Units Right Lower Abdomen heparin (porcine) injection 5,000 Units 5,000 Units, Subcutaneous, Every 8 hours scheduled, First dose on 06/15/25 at 1415, Until Discontinued, Routine Given 06/22/2025 [...] dose, Starting on Mon06/22/25 at 0847, Until Mon06/22/25 at 0850, Routine, Imaging Protocol Orders Given 06/22/2025 8:50 AM EDT 100 mL iohexol (OMNIPaque) 350 MG/ML injection 100 mL 100 mL, Intravenous, Once in imaging, 1 dose, Starting on Mon06/22/25 at 1348, Until [place] 06/22/25 at 1416, Routine, Imaging Protocol Orders [...] [place] 06/12/25 at 2230, Last dose on [facility] 06/14/25 at 1500, Routine Given 06/14/2025 3:05 PM [...] Starting on [place] 06/12/25 at 2130, Until Mon06/14/25 at 1353, Routine Rate/Dose Verify 06/14/2025 1:00 [...] Intravenous, Every 6 hours PRN, Starting on [place] 06/12/25 at 2040, Until Mon06/25/25 at 2112, Routine, [...] on Mon06/14/25 at 1115, Last dose on [place] 06/19/25 at 0315, Routine New Bag 06/18/2025 10:31 [...] 2111, Routine, Recovery(Phase II-Outpatient)/On Unit(Inpatient), line care thiamine [...] Routine 214 (Given - Provider: Bianka Phillips, TIERA) 2241 (Given - Provider: Gill White RN [...] refused) 1009 (Not Given - Provider: [place] Gómez RN - Reason: Patient/family refused) 1128 (Not Given - Provider: [place] Gómez RN - Reason: Patient/family refused) carvedilol (Coreg) tablet 3.125 mg (CANCELED) 3.125 mg, Nasogastric, 2 times daily, First dose on Mon06/18/25 at 0900, Until Discontinued, Routine 0831 (Given - Provider: Samia Santos RN)214 (Given - Provider: Bianka Phillips RN) 0833 (Given - Provider: [place] Gómez RN) carvedilol (Coreg) tablet 3.125 mg 3.125 [...] Phillips, TIERA) 0833 (Given - Provider: [place] Gómze, RN)224 (Given - Provider: Gill White RN [...] 0829 (Given - Provider: [place] Gómez, RN) Abiel powder 1 packet 1 packet, Nasogastric, 2 times daily, First dose on Mon06/17/25 at 1430, Until Discontinued, Routine 0832 (Given - Provider: Samia Santos RN)2100 (Not Given - Provider: Bianka Phillips RN - Reason: Patient/family refused) 0832 (Given - Provider: [place] Gómez RN)2243 (Given - Provider: Gill White RN - Comment: pt care) 0830 (Given - Provider: [place] Gómez, RN)2100 (Canceled [...] Phillips RN - Reason: Patient/family refused) 224 (Not Given [...] Reason: Patient/family refused)1453 (Given - Provider: [place] Gómez, RN)1736 (Not Given - Provider: [place] Gómez, RN - Reason: Patient/family refused)2241 (Given - [...] 0615, Routine 0833 (Given - Provider: [place] Gómez, RN) Protein Powder 2 packet 2 packet, Nasogastric, 2 times daily, First dose (after last modification) on Mon06/17/25 at 2100, Until Discontinued, Routine 0832 (Given - Provider: Samia Santos RN)2100 (Canceled Entry - Provider: Automatic Discharge Provider - Comment: Automatically canceled at discontinue of medication order) 0839 (Given - Provider: [place] Gómez RN)2251 (Given - Provider: Gill White, TIERA - Comment: pt care) 0830 (Given - [...] [place] Gómez RN)2244 (Given - Provider: Gill L Christopher, RN) 0836 (Given - Provider: [place] Gómez, RN) thiamine (Vitamin B-1) tablet 100 mg 100 mg, Nasogastric, Daily, First dose on Mon06/20/25 at 0900, Until Discontinued, Routine 08 (Given - Provider: Samia Santos RN) 0833 (Given - Provider: [place] Gómez, RN) 08 (Given - Provider: [place] Gómez, RN) PRN [...] on Mon06/17/25 at 2110, Until Mon06/25/25 at 2111, Routine, high blood pressure, SBP>180 melatonin tablet 3 mg 3 mg, Oral, Nightly PRN, Starting on Mon06/12/25 at 2040, Until Mon06/25/25 at 2111, Routine, Recovery(Phase II-Outpatient)/On Unit(Inpatient), sleep 0008 (Given - Provider: Shanique Ruffin RN)2233 (Given - Provider: Bianka Phillips, TIERA) ondansetron [...] documented as of this encounter Care Teams Felt Machine Mechanic Relationship Specialty Start Date End Date Murray Prajapati MD [address] [facility] [address] [place] [id number] PCP - General 03/06/23 Jaja Camara APRN [address] [facility] [address] [place] [id number] Referring Physician Gastroenterology 03/06/23 Dyllan Paul MD [address] [place] [address] Surgeon Urology 04/29/25 documented as of this encounter
--- OUTSIDE RECORDS SUMMARY | 2025-06-12 12:35 | XMS_ITS | Encounter Summary ---
Author Organization [facility] Address [address] [place] [address] Care Team Providers Care Train Braker Name Role Phone Murray Prajapati MD Primary Care Provider [phone] Jaja Camara COMPUTER SYSTEMS AUDITOR Unavailable [phone] Dyllan Paul MD Unavailable [phone] Reason for Visit * Auth/Cert (Routine) Specialty Diagnoses / Procedures Referred By Silverio barone Referred To Contact Diagnoses Prostate CA ([facility]) PROSTATE CANCER Procedures [place] LAP,PROSTATECTOMY,RADICAL, W/NERVE SPARE,INCL ROBOTIC PROSTATECTOMY, RADICAL, ROBOT-ASSISTED Dyllan Paul MD [address] [address] Phone: tel: fax: [facility] [address] [place] [address] Phone: tel: Referral ID Status Reason Start Date Expiration Date Visits Re quested Visits Authorized [id number] 1 1 Encounter Details Date Type Department Care Team (Late st Contact Info) Description 06/12/2025 12:35 PM EDT - 06/12/2025 5:30 PM EDT Surgery [facility] [address] [place] [address] Dyllan Paul MD [address] [address] PROSTATECTOMY, RADICAL, ROBOT-ASSISTED [70090 (CPT )] Surgery Details Date/Time Status Location OR Service Patient Class Case Class Case Type Trauma Case? 06/12/2025 12:35 PM Posted MARK OR 2OR 05 Urology Extended Recovery E-Electiv e Panel 1 Procedure LRB Anes Op Region Wound Class Comments PROSTATECTOMY, RADICAL, ROBOT-ASSISTED N/A General Abdomen Class II/ Clean Contaminat ed Surgeon Surgeon Role Service Panel Dyllan Paul MD Primary Urology 1 Adam Earl MD Resident - Assisting 1 Adam Earl MD Resident - Assisting 1 Gregory Galicia MD Resident - Assisting 1 documented in this encounter Social History Tobacco [...] Sign Reading Time Taken Comments Blood Pressure 137/83 06/12/2025 12:15 PM EDT Pulse 62 06/12/2025 12:15 PM EDT Temperature 36.6 C (97.9 F) 06/12/2025 12:15 PM EDT Respiratory Rate 15 06/12/2025 12:15 PM EDT Oxygen Saturation 93% 06/12/2025 12:15 PM EDT Inhaled Oxygen Concentration - - Weight 109 kg (240 lb) 06/12/2025 12:15 PM EDT Height 175.3 cm (5' 9 ) 06/12/2025 12:15 PM EDT Body Mass Index 37.7 06/12/2025 12:15 PM EDT documented in this encounter Functional Status * Calculated C-SSRS Risk Score (Lifetime/Recent) Answer Date of Assessment Author No Risk Indicated 06/12/2025 12:41 PM EDT Carol Cervantes, RN * Question Answer Date of Assessment Author 1. Wish to be (Past 1 Month) No 06/12/2025 12:41 PM EDT Erika Proctor RN 2. Non-Specific Active Suicidal Thoughts (Past 1 Month) No 06/12/2025 12:41 PM EDT Erika Proctor RN 6. Suicidal Behavior (Lifetime) No 06/12/2025 12:41 PM EDT Erika Proctor RN documented as of this encounter Discharge [...] location ahead of your appointment) [facility] at [facility] [address], [facility], [address] [place] [address] Clinic After Hours [facility] Multidisciplinary Urology Clinic [address] [facility] 1st [place] [address] Clinic documented in this encounter Medications at [...] from the original note were not included. 13457 Preventing Kidney Stones If you?ve had a [...] cystine. Last Reviewed Date: 2025 00:00:00 ?? [id number] [employer]. All rights reserved. This information is not intended as a substitute for professional medical care. Always follow your healthcare professional's instructions. * Krames Yina Huerta RN - 06/25/2025 5:19 PM EDT Images from the original note were not included. 288 Premade Patient Education packets Premade Patient Education packets are available for these topics: ? Coumadin ? Head Injury (Mild-Moderate and Moderate-Severe) ? Lovenox These packets are available in areas that use them frequently. If you need a packet and it is not available in your area, call the [facility] at [phone]. * Laury Yina Huerta RN - 06/25/2025 5:19 PM EDT Images from the original note were not included. [id number] Enoxaparin Injection IMPORTANT WARNING: If you have [...] be awakened, immediately call emergency services at 407. What OTHER INFORMATION should I know? Keep [...] of all of the prescription and nonprescription (icuj-tyr-yrhvghq) medicines, vitamins, minerals, and dietary supplements you [...] or pharmacist about specific clinical use. The [place] [employer] represents that the information provided hereunder was formulated with a reasonable standard of care, and in conformity with professional standards in the field. The [place] [employer] makes no representations or warranties, express or implied, including, but not limited to, any implied warranty of merchantability and/or fitness for a particular purpose, with respect to such information and specifically disclaims all such warranties. Users are advised that decisions regarding drug therapy are complex medical decisions requiring the independent, informed decision of an appropriate health geriatric care manager, and the information is provided for informational purposes only. The entire monograph for a drug should be reviewed for a thorough understanding of the drug's actions, uses and side effects. The [place] [employer] does not endorse or recommend the use of any drug.The information is not a substitute for medical care. AHFS?? Patient Medication Information?. ?? Copyright, 2023. The [place] [employer]??, [address], [address], [place], [place]. All Rights Reserved. Duplication for commercial use must be authorized by [facility]. Selected Revisions: June 08, 2024. AHFS?? Patient Medication Information?. ?? Copyright, 2024 * Laury [facility] - Yina Kruse RN - 06/25/2025 5:19 PM EDT Images from the original note were not included. [id number] Methocarbamol WHY is this medicine prescribed? Methocarbamol [...] be awakened, immediately call emergency services at [phone]. What OTHER INFORMATION should I know? Keep all appointments with your doctor. Do not let anyone else take your medication. Ask your pharmacist any questions you have about refilling your prescription. Keep a written list of all of the prescription and nonprescription (jfaj-hrq-ckzsoqm) medicines, vitamins, minerals, and dietary supplements you [...] or pharmacist about specific clinical use. The [place] [employer] represents that the information provided hereunder was formulated with a reasonable standard of care, and in conformity with professional standards in the field. The [place] [employer] makes no representations or warranties, express or implied, including, but not limited to, any implied warranty of merchantability and/or fitness for a particular purpose, with respect to such information and specifically disclaims all such warranties. Users are advised that decisions regarding drug therapy are complex medical decisions requiring the independent, informed decision of an appropriate health geriatric care manager, and the information is provided for informational purposes only. The entire monograph for a drug should be reviewed for a thorough understanding of the drug's actions, uses and side effects. The [place] [employer] does not endorse or recommend the use of any drug.The information is not a substitute for medical care. AHFS?? Patient Medication Information?. ?? Copyright, 2023. The [place] [employer]??, [address], [address], [place], [place]. All Rights Reserved. Duplication for commercial use must be authorized by [facility]. Selected Revisions: July 04, 2017. AHFS?? Patient Medication Information?. ?? Copyright, 2024 * Chiteto [facility] - Yina Kruse RN - 06/25/2025 5:19 PM EDT Images from the original note were not included. [id number] Stool Softeners WHY is this medicine prescribed? [...] and out of their sight and reach. [email or web address]://www.DiscoveRX.DemandTec Dispose of unneeded medications in a way [...] of all of the prescription and nonprescription (aalv-xjr-qyohyev) medicines, vitamins, minerals, and dietary supplements you [...] or pharmacist about specific clinical use. The [place] [employer] represents that the information provided hereunder was formulated with a reasonable standard of care, and in conformity with professional standards in the field. The [place] [employer] makes no representations or warranties, express or implied, including, but not limited to, any implied warranty of merchantability and/or fitness for a particular purpose, with respect to such information and specifically disclaims all such warranties. Users are advised that decisions regarding drug therapy are complex medical decisions requiring the independent, informed decision of an appropriate health geriatric care manager, and the information is provided for informational purposes only. The entire monograph for a drug should be reviewed for a thorough understanding of the drug's actions, uses and side effects. The [place] [employer] does not endorse or recommend the use of any drug.The information is not a substitute for medical care. AHFS?? Patient Medication Information?. ?? Copyright, 2023. The [place] [employer]??, [address], [address], [place], [place]. All Rights Reserved. Duplication for commercial use must be authorized by [facility]. Selected Revisions: May 09, 2024. AHFS?? Patient Medication Information?. ?? Copyright, 2024 * Laury [facility] - Yina Kruse RN - 06/25/2025 5:19 PM EDT Images from the original note were not included. [id number] Pulmonary Embolism (PE) A pulmonary embolus is [...] cut Last Reviewed Date: 2022 00:00:00 ?? [id number] [employer]. All rights reserved. This information is not intended as a substitute for professional medical care. Always follow your healthcare professional's instructions. * Laury On[facility] - Yina Kruse RN - 06/25/2025 5:19 PM EDT Images from the original note were not included. 27184 Discharge Instructions for Pulmonary Embolism A deep [...] bleeding. Last Reviewed Date: 2024 00:00:00 ?? [id number] [employer]. All rights reserved. This information is not intended as a substitute for professional medical care. Always follow your healthcare professional's instructions. * [facility] Yina Kruse RN - 06/25/2025 5:19 PM EDT Images from the original note were not included. [id number] Lactulose WHY is this medicine prescribed? Lactulose [...] of all of the prescription and nonprescription (bvur-gga-slliyez) medicines, vitamins, minerals, and dietary supplements you [...] or pharmacist about specific clinical use. The [place] [employer] represents that the information provided hereunder was formulated with a reasonable standard of care, and in conformity with professional standards in the field. The [place] [employer] makes no representations or warranties, express or implied, including, but not limited to, any implied warranty of merchantability and/or fitness for a particular purpose, with respect to such information and specifically disclaims all such warranties. Users are advised that decisions regarding drug therapy are complex medical decisions requiring the independent, informed decision of an appropriate health geriatric care manager, and the information is provided for informational purposes only. The entire monograph for a drug should be reviewed for a thorough understanding of the drug's actions, uses and side effects. The [place] [employer] does not endorse or recommend the use of any drug.The information is not a substitute for medical care. AHFS?? Patient Medication Information?. ?? Copyright, 2023. The [place] [employer]??, [address], [address], [place], [place]. All Rights Reserved. Duplication for commercial use must be authorized by [facility]. Selected Revisions: December 04, 2023. AHFS?? Patient Medication Information?. ?? Copyright, 2024 * Laury SolorioIR - Yina Kruse RN - 06/25/2025 5:19 PM EDT Images from the original note were not included. [id number] Orchitis Orchitis is inflammation of the testicles. [...] you're feeling better. ? You may use bots-drk-vibuvpt medicines to control pain, unless you were [...] testicles. Last Reviewed Date: 2025 00:00:00 ?? [employer]. All rights reserved. This information is not intended as a substitute for professional medical care. Always follow your healthcare professional's instructions. * Laury Espino - Yina Kruse RN - 06/25/2025 5:19 PM EDT Images from the original note were not included. 36918 Preventing a Surgical Site Infection A risk [...] of infection. ? Controlled body temperature. A ybwkc-fyhd-wazaux temperature during or after surgery prevents oxygen [...] and water or with an alcohol-based hand bed setter before and after caring for you. Don?t [...] away. Last Reviewed Date: 2024 00:00:00 ?? [id number] [employer]. All rights reserved. This information is not intended as a substitute for professional medical care. Always follow your healthcare professional's instructions. * Laury [facility] - Uriah, Yina Moreno RN - 06/25/2025 5:19 PM EDT Images from the original note were not included. [id number] Acetaminophen IMPORTANT WARNING: Taking too much acetaminophen [...] measuring cup or syringe provided by the labor and employment paralegal to measure each dose of the solution [...] out of their sight and reach. https://www.upandaway.org Dispose of unneeded medications in a way [...] be awakened, immediately call emergency services at 322. If someone takes more than the recommended [...] of all of the prescription and nonprescription (imbp-igr-kkshqmj) medicines, vitamins, minerals, and dietary supplements you [...] a combination product containing Acetaminophen, Oxycodone) APAP, D-flnutd-zflr-aminophenol, Paracetamol This report on medications is for your information only, and is not considered individual patient advice. Because of the changing nature of drug information, please consult your physician or pharmacist about specific clinical use. The [place] [employer] represents that the information provided hereunder was formulated with a reasonable standard of care, and in conformity with professional standards in the field. The [place] [employer] makes no representations or warranties, express or implied, including, but not limited to, any implied warranty of merchantability and/or fitness for a particular purpose, with respect to such information and specifically disclaims all such warranties. Users are advised that decisions regarding drug therapy are complex medical decisions requiring the independent, informed decision of an appropriate health geriatric care manager, and the information is provided for informational purposes only. The entire monograph for a drug should be reviewed for a thorough understanding of the drug's actions, uses and side effects. The [place] [employer] does not endorse or recommend the use of any drug.The information is not a substitute for medical care. AHFS?? Patient Medication Information?. ?? Copyright, 2023. The [place] [employer]ists??, [address], [address], [place], [place]. All Rights Reserved. Duplication for commercial use must be authorized by [facility]. Selected Revisions: August 04, 2023. AHFS?? Patient Medication Information?. ?? Copyright, 2024 * Discharge Summary - Bianka Hansen MD - 06/25/2025 4:15 PM EDT Hospitalization Admit Date/Time: 06/12/2025 10:20 AM Admitting Attending: Dyllan Paul Discharge Date: 06/25/25 Discharge Attending Physician: Dyllan Paul MD PCP name and Address: Murray Prajapati MD [address] [facility] / [place] [address] Referring provider name and address: No referring provider defined for this encounter. Chief Concern, Brief History of Present Illness, and Hospital Course Eber Lowe is a 70 y.o. male with PMH unfavorable intermediate risk prostate cancer, GG3 diffusely on the left, PSA 4.7 who presented to [facility] ED for planned surgical intervention. [...] a day as needed for muscle spasms. oceulkjhpyob-uxnu-dwulwwpq-folic acid chewable tablet Chew 1 tablet daily. [...] Your Medications These medications were sent to [facility] [address] [facility] [address] acetaminophen 500 MG tablet enoxaparin 120 MG/0.8ML [...] location ahead of your appointment) [facility] Department [facility] [address], [address] Floor, [facility], [address] [place] [address] Clinic After Hours [facility] Multidisciplinary Urology Clinic [address] [place] [address] Clinic Outpatient Follow-Up No future appointments. Test [...] Hansen MD Department of Urology, PGY-1 Pager: [phone] I spent >30 minutes of patient care [...] Mobility Bed Mobility Exam: Scooting/Bridging Level of [place]: Contact guard (to scoot EOB in sitting) Physical/Nonphysical Assist: Verbal Cues, Nonverbal cues (demo/gestures), Additional assist utilized for safety, Minimal cues Assistive Device: Bed rails Bed Mobility Exam: Supine to Sit Level of [place]: Stand-by assist Physical/Nonphysical Assist: Verbal Cues, Minimal cues Assistive Device: Bed rails Transfers Transfer Exam: Sit to stand Level of [place]: Stand-by assist Physical/Nonphysical Assist: Nonverbal cues (demo/gestures), Verbal Cues, Minimal cues Assistive Device: Walker, rolling Transfer Exam: Stand to Sit Level of [place]: Stand-by assist Physical/Nonphysical Assist: Nonverbal cues (demo/gestures), [...] provided additional clean abdominal binder. Standardized Assessments [facility] 6-Clicks Mobility Assessment Difficulty patient has turning [...] 3-5 steps with a railing?: A little [facility] 6-Clicks Mobility Assessment Total : 18 Assessment [...] Can consider referral to [facility] for nursing home management of cirrhosis. It appears the patient has been getting routine HCC screening through transplant so it would be reasonable to continue follow-up with Transplant and forego a hepatology referral. This can be decided at the discretion of the primary team and the patient. Jairo Campoverde DO PGY-3 [facility] - Internal Medicine Epic Chat preferred; Pager [phone] Cosigned by Nir Aguilar MD at 06/25/2025 [...] resolve due to cirrhosis. The need for detention lactulose at this point is not known [...] sign off at this time. lease page [phone] with any additional questions, or resident on-call if after hours or on weekends. Johnna Cararnza MD IM PGY-3 [1] [2] atorvastatin, 10 [...] - 06/25/2025 5:41 AM EDT [facility] Inpatient Progress Note Primary Attending: [...] Type: Bulb Size (Fr.): 10 Fr. Drain [place] Size (mL): 100 mL Urethral Catheter Double-lumen;Non-latex [...] for analysis - Appreciate Medicine recs for terminal makeup operator anticoagulation and PE findings - Will discuss [...] Hansen MD Department of Urology, PGY-1 Pager: [phone] Cosigned by Dyllan Paul MD at 06/29/2025 [...] Goal: Patient-Specific Goal (Individualized) 06/25/2025344 by Gill White RN Outcome: Ongoing, Progressing [...] Ongoing, Progressing Intervention: Promote Activity and Functional [place] Flowsheets (Taken 06/25/2025344) Activity Assistance Provided: assistance, [...] - 06/24/2025 6:55 PM EDT [facility] Inpatient Progress Note Primary Attending: [...] Type: Bulb Size (Fr.): 10 Fr. 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 Exam - no asterixis - firm abdomen with evidence of ascites - 2+ LE edema * Progress Notes - Sheryl Huerta RN - 06/24/2025 8:26 AM EDT [facility] No [facility] acceptance at [...] Transfer Exam: Sit to stand Level of [place]: Contact guard Physical/Nonphysical Assist: Nonverbal cues (demo/gestures), Verbal Cues, Minimal cues Assistive Device: Walker, rolling Transfer Exam: Stand to Sit Level of [place]: Contact guard Physical/Nonphysical Assist: Nonverbal cues (demo/gestures), Verbal Cues, Minimal cues Assistive Device: Walker, rolling Transfer Exam: Bed to Chair/Chair to Bed Level of [place]: Minimum assist (75% patient's effort) Physical/Nonphysical Assist: Verbal Cues, Maximal cues, 1 person + 1 person to manage equipment, Nonverbal cues (demo/gestures), Additional assist utilized for safety Type of Transfer: Sidesteps Assistive Device: Hand held assist Toilet Transfer Level of [place]: Contact guard Physical/Nonphysical Assist: Verbal Cues, Nonverbal [...] and safety in home setting. Standardized Assessments [facility] 6-Clicks Mobility Assessment Difficulty patient has turning [...] 3-5 steps with a railing?: A little [facility] 6-Clicks Mobility Assessment Total : 18 Assessment [...] Note Eber Lowe 70 y.o. male CSN: [id number] Admission: 06/12/2025 10:20 AM Primary Problem: Prostate CA (CMS/HCC) Anticipated Discharge Date: 06/26/25 Has Discharge Plans Changed? Medicare Second Notice: Housing Circumstances: Housing Circumstances Action Taken: Medically Ready for Discharge: Additional Comments Per PT/OT pt has HH PT/OT recs, referral sent to agencies via careport for acceptance. POC reviewed with primary team. Refer to primary team's note for details. Pt is not medically readyfor discharge. In??KELLY Baltazar, systems software manager * Consults - Crystal Corley RD - 06/23/2025 12:59 PM EDT Adult Nutrition Evaluation Note Eber Lowe 70 y.o. male CSN: [id number] Room/Bed 227/227A Nutrition evaluation type: follow-up Reason for evaluation: Hospital course: 70 y.o male admitted with prostate cancer. OR 06/12 for robot assisted laparotomy prostatectomy with bilateral pelvic lymph node dissection requiring ex-lap. 06/23: HOME HEALTH CARE SOCIAL WORKER on 06/22: Regular (IDDSI Level 7) diet w/ thin liquids (Level 0). Meds as able. No further HOME HEALTH CARE SOCIAL WORKER services indicated at this time. + liquid stools- diff stool test. Past medical/ surgical history: Past Medical History[1] Surgical History[2] Social history: Additional comments: Visited room. TF running at 40 ml/hr. Tolerating per RN. Vitals and Basic Assessment: BP: 130/74 Temp: 36.4 ??C (97.5 ??F) Invasive Ventilator Initiated (ETT/Trach Only): Yes Oxygen Therapy: None (Room air) O2 Delivery Method: Nasal cannula Sherri Coma Scale Score: 15 Alex Scale Score: [...] 37.68 Weight Evaluation: Obese-Class 2 (BMI 35-39.9) [place] Body Weight (kg): 72.7 Percent [place] Body Weight: 150 Adjusted Body Weight (kg): [...] pt and family on purchasing options via [employer])) Subjective I will try the scrotal sling after I take a shower. Participants in Care Family/Caregiver Present: Yes Family/Caregiver: Spouse Chemical Recovery Operator: Not Applicable Presentation Oxygen Therapy: None (Room [...] Transfer Exam: Sit to stand Level of [place]: Contact guard Physical/Nonphysical Assist: Nonverbal cues (demo/gestures), Verbal Cues, Minimal cues Assistive Device: Walker, rolling Transfer Exam: Stand to Sit Level of [place]: Contact guard Physical/Nonphysical Assist: Nonverbal cues (demo/gestures), Verbal Cues, Minimal cues Assistive Device: Walker, rolling Toilet Transfer Level of [place]: Contact guard Physical/Nonphysical Assist: Set-up required, Verbal [...] pt and family on purchasing options via [employer])) Plan Continue with established OT plan of [...] - 06/23/2025 7:22 AM EDT [facility] In[facility] Progress Note Primary Attending: [...] Type: Bulb Size (Fr.): 10 Fr. Drain [place] Size (mL): 100 mL Urethral Catheter Double-lumen;Non-latex [...] - 06/22/2025 1:06 PM EDT [facility] Progress Note Primary Attending: [...] Type: Bulb Size (Fr.): 10 Fr. Drain [place] Size (mL): 100 mL Urethral Catheter Double-lumen;Non-latex [...] care. * Progress Notes - Aurea Rodrigues, [facility]-HOME HEALTH CARE SOCIAL WORKER - 06/22/2025 10:27 AM EDT Speech Language Pathology Clinical Swallow Initial Evaluation Patient Name: Eber Lowe Age: 70 y.o. Today's Date: 06/22/2025 Recommendations: Regular (IDDSI Level 7) diet w/ thin liquids (Level 0). Meds as able. No further HOME HEALTH CARE SOCIAL WORKER services indicated at this time. Will sign [...] Feeding Trials: Positionin degrees, upright Feeding assistance: HOME HEALTH CARE SOCIAL WORKER presented PO trials to patient Consistencies Administered: thin liquid via straw and dry solid consistency [place] Swallow Protocol (Johnna and Peggyr, 2014) - [...] (Level 0). Meds as able. No further HOME HEALTH CARE SOCIAL WORKER services indicated at this time. Will sign [...] - 06/21/2025 7:16 AM EDT [facility] Progress Note Primary Attending: [...] Type: Bulb Size (Fr.): 10 Fr. Drain [place] Size (mL): 100 mL Urethral Catheter Double-lumen;Non-latex [...] admission Level of Mobility Ambulatory- community Mobility [place] Independent gait without device History of Falls [...] is worn out. Visitors Present Yes Spouse Chemical Recovery Operator (if applicable) N/A OBJECTIVE Vital Signs Pre-Session [...] activity throughout session. BED MOBILITY Level of [place] Physical/Non- physical Assist Adaptive Equipment Utilized Rolling/ Turning Scooting/ Bridging Contact guard (to scoot out to EOB while seated) Nonverbal cues (demo/gestures), Verbal Cues, Minimal cues Other (ESCROW AGENT) Supine to Sit Moderate assist (50% patient's effort) HOB elevated, Nonverbal cues (demo/gestures), Verbal Cues, Minimal cues, Additional assist utilized for safety Other (ESCROW AGENT for leverage) Sit to Supine Interventions TRANSFERS Level of [place] Physical/Non- physical Assist Adaptive Equipment Utilized Sit [...] Interventions BALANCE Interventions Postural Appearance Level of [place] Balance Support Interventions Static Sit Contact guard Feet supported Dynamic Sit Minimum assistance Feet supported Dynamic Sitting-Balance: Anterior/Posterior weight shifts, Lateral weight shifts Static Stand Minimum assistance Right upper extremity support, Left upper extremity support (ESCROW AGENT x 2) Patient stood with ESCROW AGENT x 2 while being cleaned up + brief change prior to sitting down in chair. Stood ~ 5 min. Dynamic Stand Minimum assistance Left upper extremity support, Right upper extremity support (ESCROW AGENT x2) Lateral weight shifts, Anterior/Posterior weight shifts AMBULATION Level of [place] Distance Adaptive Equipment Utilized Ambulation Minimum assistance [...] accessed by patient at the following: URL: [email or web address] Access Code: [email or web address] Date: 06/20/25 Prepared by: Eva French PT ASSESSMENT Patient continues to have the [...] in Care Family/Caregiver Present: Yes Family/Caregiver: Spouse Chemical Recovery Operator: Not Applicable Presentation Oxygen Therapy: None (Room [...] Precautions: Abdominal Objective Pain Pain Score (0-10): 6/10 Location: scrotum Intervention: position adjusted, pillow support [...] Mobility Bed Mobility Exam: Scooting/Bridging Level of [place]: Contact guard (to scoot out to EOB while seated) Physical/Nonphysical Assist: Nonverbal cues (demo/gestures), Verbal Cues, Minimal cues Assistive Device: Other (ESCROW AGENT) Bed Mobility Exam: Supine to Sit Level of [place]: Moderate assist (50% patient's effort) Physical/Nonphysical Assist: HOB elevated, Nonverbal cues (demo/gestures), Verbal Cues, Minimal cues, Additional assist utilized for safety Assistive Device: Other (ESCROW AGENT for leverage) Transfers Transfer Exam: Sit to stand Level of [place]: Minimum assist (75% patient's effort) Physical/Nonphysical Assist: Nonverbal cues (demo/gestures), Verbal Cues, Minimal cues, Additional assist utilized for safety Assistive Device: Hand held assist Transfer Exam: Stand to Sit Level of [place]: Minimum assist (75% patient's effort) Physical/Nonphysical Assist: Nonverbal cues (demo/gestures), Verbal Cues, Minimal cues, Additional assist utilized for safety Assistive Device: Hand held assist Transfer Exam: Bed to Chair/Chair to Bed Level of [place]: Minimum assist (75% patient's effort) Physical/Nonphysical Assist: [...] below regarding pt individualized HEP: Access Code: [email or web address] URL: [email or web address] Date: 06/20/2025 Prepared by: Exercises - Seated [...] Pt participating in testing at bedside upon HOME HEALTH CARE SOCIAL WORKER entrance. HOME HEALTH CARE SOCIAL WORKER spoke with pt's who reported that pt ate and drank yesterday without concerns. She stated that she would discuss participation in the clinical swallow evaluation with pt when he is done with the current testing. HOME HEALTH CARE SOCIAL WORKER to check back asscheduling allows. Jeff Penaloza MA, CCC-HOME HEALTH CARE SOCIAL WORKER, [facility] Speech Language Pathologist * Progress Notes - Homar Grajeda - 06/20/2025 10:22 AM EDT [facility] Progress Note Primary Attending: [...] Type: Bulb Size (Fr.): 10 Fr. Drain [place] Size (mL): 100 mL Urethral Catheter Double-lumen;Non-latex [...] 06/20/2025 3:07 PM EDT Associated attestation - Anan Armas MD - 06/20/2025 3:07 PM EDT I saw and evaluated the patient with the medical/PAN TANK WORKER/PA student. I discussed the case with the medical/PAN TANK WORKER/PA student and agree with the findings and [...] Review Outcome: Ongoing, Progressing Flowsheets (Taken 06/19/2025 08) Progress: improving Plan of Care Reviewed [...] 12:35 PM EDTAssociated Order(s): IP CONSULT TO [facility] MEDICINE MARK Images from the [...] to ICU level of status and [facility] assisted with care. Hospital Medicine consulted on 06/19 after downgrade out of ICU when [facility] signed off for management of hypernatremia [...] mg, 2 times daily (0900 & 1500) smzqpprbwcvt-zsed-rmhhbzfa-folic acid (Centrum) chewable tablet 1 tablet, Daily [...] Medicine Resident PGY-3 Epic Chat Preferred; Pager [phone] [1] Past Medical History: Diagnosis Date Cancer [...] Note Eber Lowe 70 y.o. male CSN: [id number] Admission: 06/12/2025 10:20 AM Primary Problem: Prostate CA (CMS/HCC) Anticipated Discharge Date: 06/23/25 Has Discharge Plans Changed? Medicare Second Notice: Housing Circumstances: Housing Circumstances Action Taken: Medically Ready for Discharge: Additional Comments POC reviewed with primary team. Refer to primary team's note for details. Pt is not medically readyfor discharge. In??KELLY Baltazar, systems software manager * Consults - Eva Acosta APRN - 06/19/2025 10:34 AM EDTAssociated Order(s): IP CONSULT TO PHYSICAL MEDICINE REHAB Images from the original note were not included. PHYSICAL MEDICINE & REHABILITATION INPATIENT CONSULT NOTE Patient: Eber Lowe : 1955 PCP: Murray Prajapati MD at [address] [place] [address] [address] / [place] [address] Payor: DANIKA / Plan: DANIKA TR[employer]ITIONAL/[place]/[facility] BCBS / Product Type: *No Product type* [...] has now passed bedside swallow eval with HOME HEALTH CARE SOCIAL WORKER and cleared to advance diet as tolerated [...] his normal when he wakes up initially. [place] like the propofol was still a factor in confusion. I explained there were a multitude of factors when hospitalized, anesthesia, infection, etc. Pt was [facility] in [facility] last HS, and pt has no memory of this, or why. Very pleasant, following commands. PMH: Past Medical History[1] PSH: Surgical History[2] Allergies: Allergies[3] Home Medications: Current Outpatient Medications Medication Instructions atorvastatin (LIPITOR) 10 mg, Daily carvedilol (COREG) 3.125 mg, Oral, 2 times daily furosemide (LASIX) 40 mg, 2 times daily (0900 & 1500) jvotjhctjjvd-olzz-wxqmtfzj-folic acid (Centrum) chewable tablet 1 tablet, Daily potassium chloride CR (Klor-Con) 10 MEQ ER tablet 10 mEq, Daily Vitamin E 1,000 Units, Daily Active Medications: Continuous: Current Continuous Medications[4]Scheduled: Current Scheduled Medications[5]PRN: Current PRN Medications[6] Family history: Family History[7] Social history: Marital Status: , Javon Children: 3 children Previous Residence: lives with in [place], [place] in a 1.5 story house with [...] admission Level of Mobility: Ambulatory- community Mobility [place]: Independent gait without device History of Falls: No ADL Performance: Independent Current: Mobility Bed Mobility Exam: Scooting/Bridging Level of [place]: Moderate assist (50% patient's effort) (progressing to CGA; to scoot anterior/posteriorly) Physical/Nonphysical Assist: Verbal Cues, Moderate cues, Nonverbal cues (demo/gestures), Additionalassist utilized for safety Assistive Device: Other (draw sheet) Bed Mobility Exam: Supine to Sit Level of [place]: Moderate assist (50% patient's effort) Transfer Exam: Sit to stand Level of [place]: Moderate assist (50% patient's effort) (x 2 reps from bed and recliner chair) Physical/Nonphysical Assist: Maximal cues, Verbal Cues, Nonverbal cues (demo/gestures), 1 person + 1 person to manage equipment, Additional assist utilized for safety Assistive Device: Walker, rolling Transfer Exam: Stand to Sit Level of [place]: Moderate assist (50% patient's effort) Physical/Nonphysical Assist: Verbal Cues, Nonverbal cues (demo/gestures), 1 person + 1 person to manage equipment, Maximal cues, Additional assist utilized for safety Assistive Device: Walker, rolling Transfer Exam: Bed to Chair/Chair to Bed Level of [place]: Moderate assist (50% patient's effort) Physical/Nonphysical Assist: [...] Value Units Date/Time Blood Culture (Aerobic/Anaerobet Set) [[id number]] Collected: 06/14/25816 Order Status: Completed Specimen: Blood from Bicep, right Updated: 06/19/25 1001 Culture No growth at day 5 Respiratory Culture and Gram Stain [[id number]] (Abnormal) Collected: 06/14/25 0818 Order Status: Completed [...] Abnormal Ventricular Rate 109 Atrial Rate 109 TN Interval 152 QRSD Interval 86 QT Interval 336 QTC Interval 452 P [place] -6 R [place] -1 T Wave [place] 5 Diagnosis Sinus tachycardia Diagnosis Poor R-wave [...] Center 06/24/2025 2:45 PM Dyllan Paul MD [facility] Mobility Orders Mobility Protocol: General - [...] removed if appropriate, prior to DC. Recommend HOME HEALTH CARE SOCIAL WORKER services for cognition, ongoing as pt is disoriented. Continue to monitor leukocytosis to ensure stability prior to dc. Consider UA vs ongoing workup andeval for possible HE Thank you for allowing us to participate in the care of your patient. We will continue to follow. Please page [phone] with any questions, or resident on-call if after hours or on weekends. Eva Acosta APRN Physical Medicine & Rehabilitation [1] Past Medical [...] - 06/19/2025 8:30 AM EDT [facility] Progress Note Primary Attending: [...] Type: Bulb Size (Fr.): 10 Fr. Drain [place] Size (mL): 100 mL Urethral Catheter Double-lumen;Non-latex 20 Fr. (Active) Placement Date/Time: 06/12/251831 Inserted by: ST Denis, under Dr. Palu's supervisionHand Hygiene Completed: Yes Catheter Type: Double-lumen;Non-latex Tube [...] will defer further management to primary team(s). [facility] will sign off. Thank you for [...] sitting balance. Pt required dep A to dross puller hips due to edema and impaired [...] Assessment Red Margins Well-defined edges Cari-Wound Assessment [place] Shape linear, full thickness Wound Length (cm) [...] EDT Referral for acute rehab sent to [facility] via [facility], PM&R consult requested from MD Cai, pt [...] rounds. JENNIFER Lee * Progress Notes - KaylieCarol I - 06/18/2025 8:42 AM EDT Physical [...] Mobility Bed Mobility Exam: Scooting/Bridging Level of [place]: Contact guard (to scoot EOB in sitting) Physical/Nonphysical Assist: Verbal Cues, Nonverbal cues (demo/gestures), Additional assist utilized for safety, Minimal cues Assistive Device: Bed rails Bed Mobility Exam: Supine to Sit Level of [place]: Minimum assist (75% patient's effort) Physical/Nonphysical Assist: Verbal Cues, HOB elevated, Nonverbal cues (demo/gestures), Additional assist utilized for safety, Minimal cues Assistive Device: Bed rails Bed Mobility Exam: Sit to Supine Level of [place]: Moderate assist (50% patient's effort) Physical/Nonphysical Assist: [...] Transfer Exam: Sit to stand Level of [place]: Moderate assist (50% patient's effort) (regressing to maxA) Physical/Nonphysical Assist: Maximal cues, Verbal Cues, Nonverbal cues (demo/gestures), 1 person + 1 person to manage equipment, Additional assist utilized for safety Assistive Device: Walker, rolling Transfer Exam: Stand to Sit Level of [place]: Moderate assist (50% patient's effort) (regressing to maxA) Physical/Nonphysical Assist: Verbal Cues, Nonverbal cues (demo/gestures), 1 person + 1 person to manage equipment, Maximal cues, Additional assist utilized for safety Assistive Device: Walker, rolling Transfer Exam: Bed to Chair/Chair to Bed Level of [place]: Minimum assist (75% patient's effort) Physical/Nonphysical Assist: [...] Assessments Standardized Assessments: AMPA 6-Clicks Mobility Assessment AMPA 6-Clicks Mobility Assessment Difficulty patient has turning [...] 3-5 steps with a railing?: A lot [facility] 6-Clicks Mobility Assessment Total : 17 Assessment [...] - 06/18/2025 7:39 AM EDT [facility] Progress Note Primary Attending: [...] Type: Bulb Size (Fr.): 10 Fr. Drain [place] Size (mL): 100 mL Urethral Catheter Double-lumen;Non-latex [...] Reasons Emotional support; Family support Referral From Workers' Compensation Mediator Initiated Spiritual Assessment Support Systems/ Spiritual Resources [place]; Family; Prayer Spiritual Needs Emotional support; Prayer; Spiritual support Spiritual Issues Chronic pain/ illness; Critical Illness Interventions Interventions Provided Emotional support; Family support; Prayer; Identify quaker/ spiritual coping; Introduced Patient/Family to Workers' Compensation Mediator Services; Supportive Listening; Spiritual support Outcomes Patient Outcomes Demonstrates lower level of Anxious(ness); Is knowledgeable about Leather Belt Shaper Services; Appreciative of Workers' Compensation Mediator Support; Identifies spiritual or quaker practices as helpful Follow-Up Last Date of Pastoral Care Contact 06/17/2025 Pastoral Care Comment An introductory visit with patient and family, spouse and son, and provided emotional support. Spouse spoke about patient condition and mentioned that he is doing a lot better today. Workers' Compensation Mediator provided a supportive presence, empathic listening, and [...] admitted 06/12/2025 for work-up of Prostate CA ([facility]/HCC). Problem List Active Hospital Problems Diagnosis Date Noted Metabolic encephalopathy 06/17/2025 Hypotension 06/13/2025 Hypocalcemia 06/13/2025 Prostate CA (CMS/HCC) 06/12/2025 On mechanically assisted ventilation (CMS/HCC) 06/12/2025 Anemia 06/12/2025 Hyperlipidemia 06/12/2025 Leukocytosis 06/12/2025 Cirrhosis of liver (CMS/HCC) 06/12/2025 Hyperbilirubinemia 06/12/2025 Esophageal varices 06/12/2025 Renal calculi 06/12/2025 Hypertension 06/12/2025 Alcohol use disorder 06/12/2025 SCC (squamous cell carcinoma), leg, left 06/12/2025 Electrolyte abnormality 06/12/2025 Severe obesity (BMI 35.0-39.9) with comorbidity (CMS/HCC) 06/03/2025 Procedures 06/12/2025 Procedure(s): PROSTATECTOMY, RADICAL, ROBOT-ASSISTED Past Medical History Patient has a past medical history of Cancer (CMS/HCC) (january 26, 2025), Cirrhosis (CMS/HCC) (2021),History of methicillin resistant Staphylococcus aureus (2011), [...] admission Level of Mobility: Ambulatory- community Mobility [place]: Independent gait without device History of Falls: [...] (Difficult to assess due to cognitive deficits. Shuttle Bus Driver strength 3/5, otherwise 2-/5 based on observation.) Sensation Light Touch: Right Upper Extremity: Intact Left Upper Extremity Examination LUE ROM Assessment LUE Assessment: Within Functional Limits (AAROM) Manual Muscle Testing - LUE Manual Muscle Testing - LUE: (Difficult to assess due to cognitive deficits. Shuttle Bus Driver strength 3/5, otherwise 2-/5 based on observation.) [...] Mobility Bed Mobility Exam: Scooting/Bridging Level of [place]: Moderate assist (50% patient's effort) (progressing to CGA; to scoot anterior/posteriorly) Physical/Nonphysical Assist: Verbal Cues, Moderate cues, Nonverbal cues (demo/gestures), Additionalassist utilized for safety Assistive Device: Other (draw sheet) Bed Mobility Exam: Supine to Sit Level of [place]: Moderate assist (50% patient's effort) Physical/Nonphysical Assist: Verbal Cues, Maximal cues, HOB elevated, Nonverbal cues (demo/gestures), Additional assist utilized for safety Assistive Device: Other (Draw sheet) Transfers Transfer Interventions: PT provided verbal cues for hand placement on therapists elbows, sequencing, and safety with line management. Subsequent stand x 30s with minor lateral wavering without overt LOB. Transfer Exam: Sit to stand Level of [place]: Moderate assist (50% patient's effort) (x 2 reps from bed and recliner chair) Physical/Nonphysical Assist: Maximal cues, Verbal Cues, Nonverbal cues (demo/gestures), 1 person + 1 person to manage equipment, Additional assist utilized for safety Assistive Device: Walker, rolling Transfer Exam: Stand to Sit Level of [place]: Moderate assist (50% patient's effort) Physical/Nonphysical Assist: Verbal Cues, Nonverbal cues (demo/gestures), 1 person + 1 person to manage equipment, Maximal cues, Additional assist utilized for safety Assistive Device: Walker, rolling Transfer Exam: Bed to Chair/Chair to Bed Level of [place]: Moderate assist (50% patient's effort) Physical/Nonphysical Assist: [...] edema. Standardized Assessments Standardized Assessments Standardized Assessments: [facility] 6-Clicks Mobility Assessment [facility] 6-Clicks Mobility Assessment Difficulty patient has turning [...] climbing 3-5 steps with a railing?: Unable [facility] 6-Clicks Mobility Assessment Total : 15 Assessment [...] admitted 06/12/2025 for work-up of Prostate CA ([facility]/HCC). Problem List Active Hospital Problems Diagnosis Date Noted Metabolic encephalopathy 06/17/2025 Hypotension 06/13/2025 Hypocalcemia 06/13/2025 Prostate CA (CMS/HCC) 06/12/2025 On mechanically assisted ventilation (CMS/HCC) 06/12/2025 Anemia 06/12/2025 Hyperlipidemia 06/12/2025 Leukocytosis 06/12/2025 Cirrhosis of liver ([facility]/HCC) 06/12/2025 Hyperbilirubinemia 06/12/2025 Esophageal varices 06/12/2025 Renal calculi 06/12/2025 Hypertension 06/12/2025 Alcohol use disorder 06/12/2025 SCC (squamous cell carcinoma), leg, left 06/12/2025 Electrolyte abnormality 06/12/2025 Severe obesity (BMI 35.0-39.9) with comorbidity ([facility]/HCC) 06/03/2025 Procedures 06/12/2025 Procedure(s): PROSTATECTOMY, RADICAL, ROBOT-ASSISTED Past Medical History Patient has a past medical history of Cancer (CMS/HCC) (january 26, 2025), Cirrhosis ([facility]/HCC) (2021),History of methicillin resistant Staphylococcus aureus (2011), [...] admission Level of Mobility: Ambulatory- community Mobility [place]: Independent gait without device History of Falls: [...] (Difficult to assess due to cognitive deficits. Shuttle Bus Driver strength 3/5, otherwise 2-/5 based on observation.) Sensation Light Touch: Right Upper Extremity: Intact Left Upper Extremity Examination LUE ROM Assessment LUE Assessment: Within Functional Limits (AAROM) Manual Muscle Testing - LUE: (Difficult to assess due to cognitive deficits. Shuttle Bus Driver strength 3/5, otherwise 2-/5 based on observation.) [...] Mobility Bed Mobility Exam: Scooting/Bridging Level of [place]: Moderate assist (50% patient's effort) (progressing to CGA; to scoot anterior/posteriorly) Physical/Nonphysical Assist: Verbal Cues, Moderate cues, Nonverbal cues (demo/gestures), Additionalassist utilized for safety Bed Mobility Exam: Supine to Sit Level of [place]: Moderate assist (50% patient's effort) Physical/Nonphysical Assist: Verbal Cues, Maximal cues, HOB elevated, Nonverbal cues (demo/gestures), Additional assist utilized for safety Transfers Transfer Exam: Sit to stand Level of [place]: Moderate assist (50% patient's effort) (x 2 reps from bed and recliner chair) Physical/Nonphysical Assist: Maximal cues, Verbal Cues, Nonverbal cues (demo/gestures), 1 person + 1 person to manage equipment, Additional assist utilized for safety Assistive Device: Walker, rolling Transfer Exam: Stand to Sit Level of [place]: Moderate assist (50% patient's effort) Physical/Nonphysical Assist: Verbal Cues, Nonverbal cues (demo/gestures), 1 person + 1 person to manage equipment, Maximal cues, Additional assist utilized for safety Assistive Device: Walker, rolling Transfer Exam: Bed to Chair/Chair to Bed Level of [place]: Moderate assist (50% patient's effort) Physical/Nonphysical Assist: [...] off bed to don socks. Standardized Assessments [facility] 6-Click Daily Activities Help from Other: Don/Doff Regular Lower Body Clothings: Total Help From Other: Bathing: Total Help From Other: Toileting: Total Help From Other: Don/Doff Upper Body Clothings: A lot Help From Other: Grooming: A lot Help From Other: Eating Meals: Total (NPO, DHT) [facility] 6 Click - Daily Activities Score: [...] Optimal Device Function 06/17/2025 1338 by Christine Qurioz Outcome: Met 06/17/2025 1232 by Christine Quiroz [...] - 06/17/2025 11:35 AM EDT [facility] Progress Note Primary Attending: [...] Type: Bulb Size (Fr.): 10 Fr. Drain [place] Size (mL): 100 mL Urethral Catheter Double-lumen;Non-latex [...] Note Eber Lowe 70 y.o. male CSN: [id number] Room/Bed 239/239A Nutrition evaluation type: follow-up Reason [...] Supplemental oxygen O2 Delivery Method: Mechanical ventilator [place] Coma Scale Score: 11 Héctor/Cubbin Pressure Risk [...] 35.21 Weight Evaluation: Obese-Class 2 (BMI 35-39.9) [place] Body Weight (kg): 72.7 Percent [place] Body Weight: 150 Adjusted Body Weight (kg): 82 Estimated Needs: Kcal/ K - 20 Kcal Provided: 1635 - 2180 Kcal Needs Based On: Current weight Gm Protein/ Kg : 1.5 - 2.0 Protein Provided: 109 - 145 Protein Needs Based On: [place] weight Metabolic Cart Study Results: Current Nutrition [...] CT pending. * Care Plan - Lesia oBoth RN - 06/17/2025 9:40 AM EDT Problem: [...] Restrictive Safety Strategies Flowsheets (Taken 06/17/2025 08) Industrial Maintenance Repairer Helper Protection: IV pole/bag removed from visual field [...] nare 06/13/25 1438 Left nare 3 GCS: Elberta Coma Scale Score: 11 Review of Systems [...] Outcome: Ongoing, Progressing Flowsheets Taken 06/16/20252132 by MurciaNir english RN Plan of Care Reviewed With: family [...] Note Eber Lowe 70 y.o. male CSN: [id number] Admission: 06/12/2025 10:20 AM Primary Problem: Prostate CA (CMS/HCC) Home Economics Expert reviewed chart and spoke with patient's spouse-Javon [phone] to complete this Initial Case Management Assessment. PCP: Murray Prajapati MD Emergency Contact: Extended Emergency Contact Information Primary Emergency Contact: JAVON LOWE Mobile Relation: Spouse Chemical Recovery Operator needed? No Insurance: Primary Visit Coverage Payer Plan Sponsor Code Group Number Group Name DANIKA DENNY/[facility] [id number] Primary Visit Coverage Subscriber Subscriber ID Subscriber Name Subscriber SSN Subscriber Address [id number] JAVON LOWE J [id number] [place] [address] Patient information: Primary Caregiver: Self Support System: Immediate family Daily Living Activities: Functional Status: Independent Living Arrangements: Spouse/Significant other Type of Residence: Private residence, Single Level [address] [place] [address] Current DME: Equipment Currently Used at Home: none Income Information: Income Source: Retired Housing Circumstances-Z Codes: Patient Referred to: Anticipated Discharge Date: 06/20/25 Patient's Discharge Goal: Patient/Family Anticipates Transition to: home Assistance Available at Discharge: spouse Discharge Transport: spouse Follow Up Transport: spouse Home Health / Home Infusion / Outpatient Dialysis Services: None reported. Living Will/Advance Directive/Power of Chemical Project Engineer /Guardian: None reported. Additional Comments: CM introduced herself and explain its role. CM confirmed pt's home address and contact information.Pt lives with spouse in a 1 1/2 level home, doesn't use any DME equipment or have any HH services. Per pt's spouse, she will provide assistance as needed as well as transportation. In??s KELLY Mistry, systems software manager Social Drivers of Health Food Insecurity: [...] Social Connections: Low Risk (12/08/2023) Received from [employer] ([place], [place], [place], [place]) Family and Community [...] rounds. JENNIFER Lee * Hospital Course - [facility] - 06/16/2025 8:04 AM EDT Eber Lowe is a 70 y.o. male with PMH unfavorable intermediate risk prostate cancer, GG3 diffusely on the left, PSA 4.7 who presented to [facility] ED for planned surgical intervention. [...] Urogram with Dr. Paul. Prostate CA - 7/24: robot-assisted radical prostatectomy, complicated by severed umbilical [...] - 06/16/2025 7:49 AM EDT [facility] Inpatient Progress Note Primary Attending: [...] Type: Bulb Size (Fr.): 10 Fr. Drain [place] Size (mL): 100 mL Urethral Catheter Double-lumen;Non-latex [...] CXR 06/16 Increased radiodensities b/l lung ocampo [facility] PROBLEM LIST: Principal Problem: Prostate CA (CMS/HCC) [...] -daily AM labs -agree with abdominal binder -[facility] -urology will closely follow -c/w [...] - 06/15/2025 10:59 AM EDT [facility] In[facility] Progress Note Primary Attending: [...] Type: Bulb Size (Fr.): 10 Fr. Drain [place] Size (mL): 100 mL Urethral Catheter Double-lumen;Non-latex [...] -daily AM labs -agree with abdominal binder -[facility] -urology will closely follow -c/w [...] Problem(s): Severe obesity (BMI 35.0-39.9) with comorbidity (CMS/[facility]) Complicates all aspects of care. * Assessment [...] antibiotics and wean FiO2 as able. GCS: Elberta Coma Scale Score: 10 Review of Systems [...] PEEP (cmH2O): 10 S VT: 500 mL TN SUP: 8 cm H20 Insp Time (sec): 0.9 sec Vent Mode: PS/CPAP FiO2 (%): 80 % S RR: 14 S VT: 500 mL TN SUP: 8 cm H20 MAP (cm H2O): [...] Outcome: Ongoing, Progressing * Care Plan - Ynuior Guillen - 06/14/2025 11:52 PM EDT Problem: [...] - 06/14/2025 11:56 AM EDT [facility] Inpatient Progress Note Primary Attending: [...] Type: Bulb Size (Fr.): 10 Fr. Drain [place] Size (mL): 100 mL Urethral Catheter Double-lumen;Non-latex [...] -daily AM labs -agree with abdominal binder -[facility] -urology will closely follow Ariadna [...] Note Eber Lowe 70 y.o. male CSN: [id number] Room/Bed 239/239A Nutrition evaluation type: follow-up Reason [...] Supplemental oxygen O2 Delivery Method: Mechanical ventilator Elberta Coma Scale Score: 10 Héctor/Cubbin Pressure Risk [...] 35.43 Weight Evaluation: Obese-Class 2 (BMI 35-39.9) [place] Body Weight (kg): 72.7 Percent [place] Body Weight: 150 Adjusted Body Weight (kg): 82 Estimated Needs: Kcal/ K - 20 Kcal Provided: 1635 - 2180 Kcal Needs Based On: Current weight Gm Protein/ Kg : 1.5 - 2.0 Protein Provided: 109 - 145 Protein Needs Based On: [place] weight Metabolic Cart Study Results: Current Nutrition [...] sodium chloride * Progress Notes - Sarah Bob, PharmD - 06/14/2025 10:40 AM EDT Pharmacokinetic Consult - Therapeutic Drug Monitoring HPI/Hospital Course: Eber Lowe is a 70 y.o. male admitted for Prostate CA ([facility]). Pharmacy was consulted for management of vancomycin [...] with primary service. Thank you, Sarah Bob, TorD OR [facility] Available via T-VIPS * Care Plan - Belkys Dowell, RN - 06/14/2025 10:37 AM EDT Problem: [...] Note - Corry oDss APRN, DNP - 06/14/2025 9:59 AM EDTAssociated [...] Protonix Glucose control: GLU: 144 mg/dL (06/14 0041) Spontaneous breathing trials: O2 Delivery Method: Mechanical [...] for meds, 500ml bolus. Edited by: Roshan Haas, COMPUTER SYSTEMS AUDITOR, DNP at 06/13/2025 1202 Lines/Drains/Tubes: Patient Lines/Drains/Airways [...] ear normal. Nose: Nose normal. Mouth/Throat: Lips: Ponderosa. Mouth: Mucous membranes are moist. Pharynx: Oropharynx [...] aroused. Results Review {Vanishing Link Review Results :[id number] I have reviewed the latest lab and [...] Note Eber Lowe 70 y.o. male CSN: [id number] Room/Bed 239/239A Nutrition evaluation type: assessment Reason for evaluation: [facility] course: 70 y.o male admitted with [...] 35.43 Weight Evaluation: Obese-Class 2 (BMI 35-39.9) [place] Body Weight (kg): 72.7 Percent [place] Body Weight: 150 Adjusted Body Weight (kg): 82 Estimated Needs: Kcal/ K - 20 Kcal Provided: 1635 - 2180 Kcal Needs Based On: Current weight Gm Protein/ Kg : 1.5 - 2.0 Protein Provided: 109 - 145 Protein Needs Based On: [place] weight Metabolic Cart Study Results: Current Nutrition [...] Ringer's, 84 mL/hr, Last Rate: 84 mL/hr (06/12/259) norepinephrine, 0-0.4 mcg/kg/min, Last Rate: 0.02 mcg/kg/min [...] at 9:11 AM. * Progress Notes - rGegory Galicia MD - 06/13/2025 9:00 AM EDT [facility] Progress Note Primary Attending: [...] Type: Bulb Size (Fr.): 10 Fr. Drain [place] Size (mL): 100 mL Urethral Catheter Double-lumen;Non-latex [...] -daily AM labs -agree with abdominal binder -[facility] -urology will closely follow Gregory Galicia MD Cosigned by Dlylan Paul MD at 06/15/2025 10:37 AM EDT [...] CM will return to initiate IA/SDOH. In??s A. KELLY Huerta, systems software manager * Procedures - Tati Pedroza RN [...] / Humberto, Dyllan Saenz MD. HPI Eber Giovanna Mynor is a 70 y.o. male who presents with Prostate CA (CMS/HCC).Patient is post-op day * Day of Surgery * with Urology. Past medical history significant for: HLD, cirrhosis (MELD-NA 16), hyperbilirubinemia, Esoph varices (Coreg),obesity, prostate cancer, renal calculi, MRSA (2013), HTN, AUD, SCC (leg) Intraoperative course was [...] by mouth daily. Yes Albert Salinas MD cewitzmnxgtd-infi-kafzwktn-folic acid (Centrum) chewable tablet Chew 1 tablet [...] ear normal. Nose: Nose normal. Mouth/Throat: Lips: Ponderosa. Mouth: Mucous membranes are moist. Pharynx: Oropharynx [...] are consistent with and integrated into the [employer] Liver Diseases [...] PM EDT Operative Note Date: 06/12/25 Location: [facility] OR Name: Eber Lowe, : 1955, Diagnoses: Pre-op Diagnosis Prostate CA (CMS/HCC) Post-op Diagnosis Prostate CA (CMS/HCC) Procedure(s): Robotic assisted laparoscopic radical prostatectomy Robotic assisted laparoscopic bilateral pelvic lymph node dissection Laparotomy with ligation of dilated umbilical veins Attending Surgeon(s): * Dyllan Paul - Primary Music Leader(s): * Adam Earl MD - Resident - [...] Collection Port Covered with Alcohol Cap Yes 06/15/25 08 CAUTI: Urinary Catheter Necessity Yes, meets criteria 06/15/25799 CAUTI: Urinary Catheter Necessity Reasons Q1-2 hourly urine output of critically ill patient 06/15/25 08 Output (mL) 125 mL 06/15/25 08 [REMOVED] Urethral Catheter Double-lumen;Non-latex 18 Fr. (Removed) [...] who is having surgery for Prostate CA ([facility]/HCC). Narrative: The patient is brought the operating [...] points were confirmed we placed an 18 Faroese catheter into the bladder and the bladder [...] run as well with a new 20 Faroese catheter being placed into the bladder before [...] 06/12/2025 3:20 PM EDT Date: 06/12/25 Location: [facility] OR Name: Eber Lowe, : 1955, Diagnoses: Pre-op Diagnosis Prostate CA (CMS/HCC) Post-op Diagnosis Prostate CA (CMS/HCC) Procedure(s): Robotic-assisted laparoscopic radical prostatectomy Bilateral pelvic lymph node dissection Attending Surgeon(s): * Dyllan Paul - Primary Music Leader(s): * Adam Earl MD - Resident - [...] original note were not included. [facility] History and Physical 06/12/25 HPI: [...] % shampoo Melatonin 10 mg, Nightly PRN gmzcridktfdb-pbfh-kdqqklwb-folic acid (Centrum) chewable tablet 1 tablet, Daily [...] since 05/13/25 Location Start Date End Date [place] ([facility]) 06/01/25 06/02/25 ROS: 14 point review of [...] EDT Hospital Encounter [facility] [address] [place] [address] [phone] Dyllan Paul MD [address] [facility] [address] [place] [address] 08/14/2025 12:25 PM EDT - 08/14/2025 1:55 PM EDT Surgery [facility] Operating Room [address] [place] [address] Dyllan Paul MD [address] [facility] [address] [place] [address] URETEROSCOPY, WITH LASER LITHOTRIPSY [[id number] (CPT )] 10/28/2025 8:00 AM EST Office Visit [facility] [address] [place] [phone] Pavan Aldrich MD [address] [facility] [address] [place] [address] Scheduled Procedures Name Priority Associated Diagnoses Date/Ti me URETEROSCOPY, WITH LASER LITHOTRIPSY Ureteral stone 08/14/2025 12:25 PM EDT Scheduled Referrals Name Type Priority Associated Diagnoses Orde r Schedule Discharge Ambulatory referral to [facility] Outpatient Referral Routine Prostate CA (CMS/HCC) [...] UNSOLICITED RESULTS Routine 06/18/2025 12:29 PM EDT [place] CRITICAL CARE, E/M 30-74 MINUTES Routine 06/18/2025 9:49 AM EDT Prostate CA ([facility]) Alcohol use disorder Leukocytosis, unspecified type Severe obesity (BMI 35.0-39.9) with comorbidity ([facility]) SCC (squamous cell carcinoma), leg, left Renal [...] AMMONIA, PLASMA Routine 06/17/2025 8:55 AM EDT [place] CRITICAL CARE, E/M 30-74 MINUTES Routine 06/17/2025 8:36 AM EDT Prostate CA ([facility]) Alcohol use disorder On mechanically assisted ventilation ([facility]) Leukocytosis, unspecified type Hyperbilirubinemi a Electrolyte abnormality Severe obesity (BMI 35.0-39.9) with comorbidity ([facility]) SCC (squamous cell carcinoma), leg, left XR [...] UNSOLICITED RESULTS Routine 06/16/2025 11:40 AM EDT [place] CRITICAL CARE, E/M 30-74 MINUTES Routine 06/16/2025 10:30 AM EDT Prostate CA (CMS/HCC) Alcohol use disorder On mechanically assisted ventilation (CMS/HCC) Leukocytosis, unspecified type Hypocalcemia Electrolyte abnormality Severe obesity (BMI 35.0-39.9) with comorbidity (CMS/HCC) SCC (squamous cell carcinoma), leg, left Renal calculi Other secondary hypertension ECHO, ADULT TRANSTHORACIC COMPLETE Routine 06/16/2025 8:10 AM EDT POCT GLUCOSE METER UNSOLICITED RESULTS Routine 06/16/2025 8:09 AM EDT END TIDAL CO2 MONITORING Routine 07/28/2 025 8:00 AM EDT VENTILATOR - ADULT [...] RANDOM, PLASMA Routine 06/15/2025 11:38 AM EDT [place] CRITICAL CARE, E/M 30-74 MINUTES Routine 06/15/2025 [...] PANEL, ARTERIAL Timed 2024 12:09 PM EDT [place] CRITICAL CARE, E/M 30-74 MINUTES Routine 06/14/2025 [...] PANEL, ARTERIAL Timed 2024 11:30 AM EDT [place] CRITICAL CARE, ADDL 30 MIN Routine 06/13/2025 10:48 AM EDT Prostate CA ([facility]) Alcohol use disorder On mechanically assisted ventilation ([facility]) Leukocytosis, unspecified type Hypotension due to hypovolemia [...] PANEL, ARTERIAL Routine 2024 10:47 PM EDT [place] CRITICAL CARE, ADDL 30 MIN Routine 06/12/2025 10:22 PM EDT Prostate CA (CMS/HCC) [place] CRITICAL CARE, ADDL 30 MIN Routine 06/12/2025 10:22 PM EDT Prostate CA (CMS/HCC) [place] CRITICAL CARE, ADDL 30 MIN Routine 06/12/2025 [...] 06/12/20 6:07 PM EDT Prostate CA (CMS/HCC) TN LAP,PROSTATECTOMY,RADICAL ,W/NERVE SPARE,INCL ROBOTIC 06/12/2025 2:26 PM [...] following split bolus administration of IV contrast, [id number], 150 mL. Reformatted images in the coronal [...] in the right mid ureter (series 3 [id number]). Punctate bilateral nonobstructing renal calculi are also [...] Mass 394 mg 06/28/2025 4:02 PM EDT [facility] ([facility]) Calculi Description See Note 06/28/2025 4:02 PM EDT [facility] ([facility]) Calculi Composition See Note 06/28/2025 4:02 PM EDT [facility] ([facility]) Calculus Non-blood Collection / Unknown 06/25/2025 7:00 AM EDT 06/25/2025 8:10 AM EDT Narrative [facility] ([facility]) - 06/28/2025 4:02 PM EDT Specimen consists [...] composition determined by FTIR analysis. Performed By: [employer] [address] [place] [address] Production Honing Machine Operator: Sotero Banuelos MD, PhD CLIA Number: [id number] Dyllan Paul MD LAB REF LAB BLOOD AND FLUID O RD Final Result [facility] ([facility]) [address] [place] [address] * (ABNORMAL) Hemogram (CBC) (06/25/2025 5:50 AM EDT) WBC Count 15.32(H) 3.70 - 10.30 10*3/uL LAB HEMATOLOGY METHOD 06/25/2025 6:59 AM EDT [facility] RBC Count 3.44(L) 4.60 - 6.10 10*6/uL LAB HEMATOLOGY METHOD 06/25/2025 6:59 AM EDT [facility] HGB 11.2(L) 13.7 - 17.5 g/dL LAB HEMATOLOGY METHOD 06/25/2025 6:59 AM EDT [facility] HCT 32.7(L) 40.0 - 51.0 % LAB HEMATOLOGY METHOD 06/25/2025 6:59 AM EDT [facility] Platelet Count 114(L) 155 - 369 10*3/uL LAB HEMATOLOGY METHOD 06/25/2025 6:59 AM EDT [facility] MCV 95 79 - 98 fL LAB HEMATOLOGY METHOD 06/25/2025 6:59 AM EDT [facility] MCH 32.6(H) 26.0 - 32.0 pg LAB HEMATOLOGY METHOD 06/25/2025 6:59 AM EDT [facility] MCHC 34.3 30.7 - 35.5 g/dL LAB HEMATOLOGY METHOD 06/25/2025 6:59 AM EDT [facility] RDW 16.7(H) 11.5 - 14.5 % LAB HEMATOLOGY METHOD 06/25/2025 6:59 AM EDT [facility] MPV 11.7 8.8 - 12.5 fL LAB HEMATOLOGY METHOD 06/25/2025 6:59 AM EDT [facility] nRBC 0.0 <=0.0 per 100 WBCs LAB HEMATOLOGY METHOD 06/25/2025 6:59 AM EDT [facility] Blood Venous blood specimen / Unknown Venipuncture / Unknown 06/25/2025 5:50 AM EDT 06/25/2025 6:48 AM EDT us Dyllan Paul MD LAB BLOOD ORDERABLES Final Re sult [facility] [address] [place] [address] * (ABNORMAL) Comprehensive metabolic panel (06/25/2025 5:50 AM EDT) Glucose, Plasma 84 74 - 99 mg/dL 06/25/2025 7:20 AM EDT [facility] BUN, Plasma 30(H) 8 - 23 mg/dL 06/25/2025 7:20 AM EDT [facility] Creatinine, Plasma 1.14 0.70 - 1.20 mg/dL 06/25/2025 7:20 AM EDT [facility] BUN/Creatinine Ratio 26 06/25/2025 7:20 AM EDT [facility] Sodium, Plasma 134(L) 136 - 145 mmol/L 06/25/2025 7:20 AM EDT [facility] Potassium, Plasma 3.4(L) 3.6 - 4.9 mmol/L 06/25/2025 7:20 AM EDT [facility] Chloride, Plasma 100 97 - 107 mmol/L 06/25/2025 7:20 AM EDT [facility] CO2, Plasma 26 22 - 29 mmol/L 06/25/2025 7:20 AM EDT [facility] Anion Gap 8 6 - 16 mmol/L 06/25/2025 7:20 AM EDT [facility] Total Calcium, Plasma 8.1(L) 8.9 - 10.2 mg/dL 06/25/2025 7:20 AM EDT [facility] Total Protein 4.5(L) 6.3 - 7.9 g/dL 06/25/2025 7:20 AM EDT [facility] Albumin, Plasma 2.4(L) 3.5 - 5.2 g/dL 06/25/2025 7:20 AM EDT [facility] AST, Plasma 77(H) 10 - 50 U/L 06/25/2025 7:20 AM EDT [facility] ALT, Plasma 45 10 - 50 U/L 06/25/2025 7:20 AM EDT [facility] Alkaline Phosphatase, Plasma 129(H) 40 - 115 U/L 06/25/2025 7:20 AM EDT [facility] Total Bilirubin, Plasma 1.7(H) 0.2 - 1.1 mg/dL 06/25/2025 7:20 AM EDT [facility] eGFRcr 69.2 mL/min/1.7 3m*2 06/25/2025 7:20 AM EDT [facility] Comment:Reported eGFRcr in m L/min/1.73m2 is based the CKD-EPI 2020 equation that does not use a race coefficient. Blood Venous blood specimen / Unknown Venipuncture / Unknown 06/25/2025 5:50 AM EDT 06/25/2025 6:48 AM EDT us Dyllan Paul MD LAB BLOOD ORDERABLES Final Re sult Performing Organization Address [facility] [place] [address] * Phosphorus (06/25/2025 5:50 AM EDT) Phosphorus, Plasma 3.5 2.5 - 4.5 mg/dL 06/25/2025 7:20 AM EDT [facility] Blood Venous blood specimen / Unknown Venipuncture / Unknown 06/25/2025 5:50 AM EDT 06/25/2025 6:48 AM EDT us Dyllan Paul MD LAB BLOOD ORDERABLES Final Re sult Performing Organization Address [facility] [place] [address] * Magnesium (06/25/2025 5:50 AM EDT) Magnesium, Plasma 2.2 1.9 - 2.4 mg/dL 06/25/2025 7:20 AM EDT [facility] Blood Venous blood specimen / Unknown Venipuncture / Unknown 06/25/2025 5:50 AM EDT 06/25/2025 6:48 AM EDT us Dyllan Paul MD LAB BLOOD ORDERABLES Final Re sult Performing Organization Address [facility] [place] [address] * VAS US Venous Duplex Lower Extremity [...] above. COMMUNICATION: Preliminary findings discussed with Mick Campoverde, DO with RB. Preliminary report signed by [...] - 4.9 mmol/L 06/24/2025 1:21 PM EDT [facility] Blood Venous blood specimen / Unknown Venipuncture / Unknown 06/24/2025 12:35 PM EDT 06/24/2025 12:58 PM EDT us Camden Hilario MD LAB BLOOD ORDERABLES Final Result Performing Organization Address [facility] Co de Phone Number [facility] [address] [place] [address] * Peripheral blood smear, pathologist interpretation (06/24/2025 2:14 AM EDT) Clinical Diagnosis, Peripheral Smear Leukocytosis, recent surgery (prostatectomy for prostate cancer), history of cirrhosis LAB HEMATOLOGY METHOD 06/24/2025 3:21 PM EDT [facility] Interpretation , Peripheral Smear Moderate leukocytosis with neutrophilia, left shift and toxic granulations. Few atypical small lymphocytes with mature condensed chromatin. Mild anemia with anisocytosis. Mild thrombocytopeni a. See comment 06/24/2025 3:21 PM EDT [facility] Pathologist Signature, Peripheral Smear 06/24/2025 3:21 PM EDT [facility] Comment:Reviewed by: Sue Stapleton MD Blood Venous blood specimen / Unknown Venipuncture / Unknown 06/24/2025 2:14 AM EDT 06/24/2025 2:19 AM EDT Narrative [facility] - 06/24/2025 3:21 PM EDT The lymphocyte morphology is concerning for chronic lymphoproliferative disorder. A flow cytometry immunophenotyping is suggested, if clinically indicated. us Dyllan Paul MD LAB PATHOLOGY ORDERABLES Francia l Result Performing Organization Address [facility] Co de Phone Number [facility] [address] [place] [address] * (ABNORMAL) CBC and differential (06/24/2025 2:14 AM EDT) WBC Count 20.07(H) 3.70 - 10.30 10*3/uL LAB HEMATOLOGY METHOD 06/24/2025 3:40 AM EDT [facility] RBC Count 3.59(L) 4.60 - 6.10 10*6/uL LAB HEMATOLOGY METHOD 06/24/2025 3:40 AM EDT [facility] HGB 11.8(L) 13.7 - 17.5 g/dL LAB HEMATOLOGY METHOD 06/24/2025 3:40 AM EDT [facility] HCT 34.1(L) 40.0 - 51.0 % LAB HEMATOLOGY METHOD 06/24/2025 3:40 AM EDT [facility] Platelet Count 128(L) 155 - 369 10*3/uL LAB HEMATOLOGY METHOD 06/24/2025 3:40 AM EDT [facility] MCV 95 79 - 98 fL LAB HEMATOLOGY METHOD 06/24/2025 3:40 AM EDT [facility] MCH 32.9(H) 26.0 - 32.0 pg LAB HEMATOLOGY METHOD 06/24/2025 3:40 AM EDT [facility] MCHC 34.6 30.7 - 35.5 g/dL LAB HEMATOLOGY METHOD 06/24/2025 3:40 AM EDT [facility] RDW 16.2(H) 11.5 - 14.5 % LAB HEMATOLOGY METHOD 06/24/2025 3:40 AM EDT [facility] MPV 11.2 8.8 - 12.5 fL LAB HEMATOLOGY METHOD 06/24/2025 3:40 AM EDT [facility] nRBC 0.0 <=0.0 per 100 WBCs LAB HEMATOLOGY METHOD 06/24/2025 3:40 AM EDT [facility] Differential Type Automated LAB HEMATOLOGY METHOD 06/24/2025 3:40 AM EDT [facility] Neutrophils % 45 % LAB HEMATOLOGY METHOD 06/24/2025 3:40 AM EDT [facility] Lymphocytes % 39 % LAB HEMATOLOGY METHOD 06/24/2025 3:40 AM EDT [facility] Monocytes % 9 % LAB HEMATOLOGY METHOD 06/24/2025 3:40 AM EDT [facility] Eosinophils % 5 % LAB HEMATOLOGY METHOD 06/24/2025 3:40 AM EDT [facility] Basophils % 1 % LAB HEMATOLOGY METHOD 06/24/2025 3:40 AM EDT [facility] Immature Granulocytes % 1 % LAB HEMATOLOGY METHOD 06/24/2025 3:40 AM EDT [facility] Neutrophils Absolute 9.32(H) 1.60 - 6.10 10*3/uL LAB HEMATOLOGY METHOD 06/24/2025 3:40 AM EDT [facility] Lymphocytes Absolute 7.73(H) 1.20 - 3.90 10*3/uL LAB HEMATOLOGY METHOD 06/24/2025 3:40 AM EDT [facility] Monocytes Absolute 1.80(H) 0.30 - 0.90 10*3/uL LAB HEMATOLOGY METHOD 06/24/2025 3:40 AM EDT [facility] Eosinophils Absolute 0.90(H) 0.00 - 0.50 10*3/uL LAB HEMATOLOGY METHOD 06/24/2025 3:40 AM EDT [facility] Basophils Absolute 0.17(H) 0.00 - 0.10 10*3/uL LAB HEMATOLOGY METHOD 06/24/2025 3:40 AM EDT [facility] Immature Granulocytes Absolute 0.15(H) 0.00 - 0.06 10*3/uL LAB HEMATOLOGY METHOD 06/24/2025 3:40 AM EDT [facility] Blood Venous blood specimen / Unknown Venipuncture / Unknown 06/24/2025 2:14 AM EDT 06/24/2025 2:19 AM EDT Narrative [facility] - 06/24/2025 3:40 AM EDT Therapeutic decision making should be based on absolute values, rather than percentages. us Dyllan Paul MD LAB BLOOD ORDERABLES Final Re sult [facility] [address] [place] [address] * (ABNORMAL) Comprehensive metabolic panel (06/24/2025 2:14 AM EDT) Glucose, Plasma 105(H) 74 - 99 mg/dL 06/24/2025 2:46 AM EDT [facility] BUN, Plasma 33(H) 8 - 23 mg/dL 06/24/2025 2:46 AM EDT [facility] Creatinine, Plasma 1.20 0.70 - 1.20 mg/dL 06/24/2025 2:46 AM EDT [facility] BUN/Creatinine Ratio 28 06/24/2025 2:46 AM EDT [facility] Sodium, Plasma 135(L) 136 - 145 mmol/L 06/24/2025 2:46 AM EDT [facility] Potassium, Plasma 3.3(L) 3.6 - 4.9 mmol/L 06/24/2025 2:46 AM EDT [facility] Chloride, Plasma 101 97 - 107 mmol/L 06/24/2025 2:46 AM EDT [facility] CO2, Plasma 24 22 - 29 mmol/L 06/24/2025 2:46 AM EDT [facility] Anion Gap 10 6 - 16 mmol/L 06/24/2025 2:46 AM EDT [facility] Total Calcium, Plasma 8.3(L) 8.9 - 10.2 mg/dL 06/24/2025 2:46 AM EDT [facility] Total Protein 4.9(L) 6.3 - 7.9 g/dL 06/24/2025 2:46 AM EDT [facility] Albumin, Plasma 2.5(L) 3.5 - 5.2 g/dL 06/24/2025 2:46 AM EDT [facility] AST, Plasma 82(H) 10 - 50 U/L 06/24/2025 2:46 AM EDT [facility] Comment:Hemolyzed, result ma y be falsely increased. ALT, Plasma 50 10 - 50 U/L 06/24/2025 2:46 AM EDT [facility] Alkaline Phosphatase, Plasma 142(H) 40 - 115 U/L 06/24/2025 2:46 AM EDT [facility] Total Bilirubin, Plasma 1.7(H) 0.2 - 1.1 mg/dL 06/24/2025 2:46 AM EDT [facility] eGFRcr 65.1 mL/min/1.7 3m*2 06/24/2025 2:46 AM EDT [facility] Comment:Reported eGFRcr in m L/min/1.73m2 is based the CKD-EPI 2020 equation that does not use a race coefficient. Blood Venous blood specimen / Unknown Venipuncture / Unknown 06/24/2025 2:14 AM EDT 06/24/2025 2:19 AM EDT us Dyllan Paul MD LAB BLOOD ORDERABLES Final Re sult Performing Organization Address City/[facility]/[place] [address] * Phosphorus (06/24/2025 2:14 AM EDT) Phosphorus, Plasma 3.4 2.5 - 4.5 mg/dL 06/24/2025 2:46 AM EDT [facility] Blood Venous blood specimen / Unknown Venipuncture / Unknown 06/24/2025 2:14 AM EDT 06/24/2025 2:19 AM EDT us Dyllan Paul MD LAB BLOOD ORDERABLES Final Re sult Performing Organization Address [facility] Co de Phone Number [facility] [address] [place] [address] * Magnesium (06/24/2025 2:14 AM EDT) Pathologist [facility] Magnesium, Plasma 2.2 1.9 - 2.4 mg/dL 06/24/2025 2:46 AM EDT [facility] Blood Venous blood specimen / Unknown Venipuncture / Unknown 06/24/2025 2:14 AM EDT 06/24/2025 2:19 AM EDT us Dyllan Paul MD LAB BLOOD ORDERABLES Final Re sult Performing Organization Address [facility] Co de Phone Number [facility] [address] [place] [address] * Clostridiodes (Clostridium) difficile PCR (06/23/2025 9:17 AM EDT) Pathologist [facility] C difficile PCR toxin B gene DNA Result Not Detected Not Detected 06/23/2025 11:44 AM EDT [facility] Stool Rectum structure / Unknown Non-blood Collection / Unknown 06/23/2025 9:17 AM EDT 06/23/2025 10:27 AM EDT Narrative [facility] - 06/23/2025 11:44 AM EDT [...] MICROBIOLOGY - GENERAL OR DERABLES Final Result [facility] [address] [place] [address] * (ABNORMAL) Comprehensive metabolic panel (06/23/2025 3:41 AM EDT) Glucose, Plasma 110(H) 74 - 99 mg/dL 06/23/2025 4:31 AM EDT [facility] BUN, Plasma 35(H) 8 - 23 mg/dL 06/23/2025 4:31 AM EDT [facility] Creatinine, Plasma 1.17 0.70 - 1.20 mg/dL 06/23/2025 4:31 AM EDT [facility] BUN/Creatinine Ratio 30 06/23/2025 4:31 AM EDT [facility] Sodium, Plasma 134(L) 136 - 145 mmol/L 06/23/2025 4:31 AM EDT [facility] Potassium, Plasma 3.6 3.6 - 4.9 mmol/L 06/23/2025 4:31 AM EDT [facility] Chloride, Plasma 101 97 - 107 mmol/L 06/23/2025 4:31 AM EDT [facility] CO2, Plasma 23 22 - 29 mmol/L 06/23/2025 4:31 AM EDT [facility] Anion Gap 10 6 - 16 mmol/L 06/23/2025 4:31 AM EDT [facility] Total Calcium, Plasma 8.5(L) 8.9 - 10.2 mg/dL 06/23/2025 4:31 AM EDT [facility] Total Protein 4.9(L) 6.3 - 7.9 g/dL 06/23/2025 4:31 AM EDT [facility] Albumin, Plasma 2.5(L) 3.5 - 5.2 g/dL 06/23/2025 4:31 AM EDT [facility] AST, Plasma 86(H) 10 - 50 U/L 06/23/2025 4:31 AM EDT [facility] Comment:Hemolyzed, result ma y be falsely increased. ALT, Plasma 52(H) 10 - 50 U/L 06/23/2025 4:31 AM EDT [facility] Alkaline Phosphatase, Plasma 138(H) 40 - 115 U/L 06/23/2025 4:31 AM EDT [facility] Total Bilirubin, Plasma 2.3(H) 0.2 - 1.1 mg/dL 06/23/2025 4:31 AM EDT [facility] eGFRcr 67.1 mL/min/1.7 3m*2 06/23/2025 4:31 AM EDT [facility] Comment:Reported eGFRcr in m L/min/1.73m2 is based the CKD-EPI 2020 equation that does not use a race coefficient. Blood Venous blood specimen / Unknown Venipuncture / Unknown 06/23/2025 3:41 AM EDT 06/23/2025 4:00 AM EDT us Dyllan Paul MD LAB BLOOD ORDERABLES Final Re sult [facility] [address] [place] [address] * Phosphorus (06/23/2025 3:41 AM EDT) Phosphorus, Plasma 3.3 2.5 - 4.5 mg/dL 06/23/2025 4:31 AM EDT [facility] Blood Venous blood specimen / Unknown Venipuncture / Unknown 06/23/2025 3:41 AM EDT 06/23/2025 4:00 AM EDT us Dyllan Paul MD LAB BLOOD ORDERABLES Final Re sult Performing Organization Address City/[facility]/ZIP Co de Phone Number [facility] [address] [place] [address] * Magnesium (06/23/2025 3:41 AM EDT) Pathologist [facility] Magnesium, Plasma 2.1 1.9 - 2.4 mg/dL 06/23/2025 4:31 AM EDT [facility] Blood Venous blood specimen / Unknown Venipuncture / Unknown 06/23/2025 3:41 AM EDT 06/23/2025 4:00 AM EDT Dyllan Paul MD LAB BLOOD ORDERABLES Final Re sult Performing Organization Address [facility]/ZIP Co de Phone Number [facility] [address] [place] [address] * (ABNORMAL) Hemogram (CBC) (06/23/2025 3:41 AM EDT) [facility] WBC Count 24.07(H) 3.70 - 10.30 10*3/uL LAB HEMATOLOGY METHOD 06/23/2025 4:07 AM EDT [facility] RBC Count 3.66(L) 4.60 - 6.10 10*6/uL LAB HEMATOLOGY METHOD 06/23/2025 4:07 AM EDT [facility] HGB 12.3(L) 13.7 - 17.5 g/dL LAB HEMATOLOGY METHOD 06/23/2025 4:07 AM EDT [facility] HCT 34.6(L) 40.0 - 51.0 % LAB HEMATOLOGY METHOD 06/23/2025 4:07 AM EDT [facility] Platelet Count 141(L) 155 - 369 10*3/uL LAB HEMATOLOGY METHOD 06/23/2025 4:07 AM EDT [facility] MCV 95 79 - 98 fL LAB HEMATOLOGY METHOD 06/23/2025 4:07 AM EDT [facility] MCH 33.6(H) 26.0 - 32.0 pg LAB HEMATOLOGY METHOD 06/23/2025 4:07 AM EDT [facility] MCHC 35.5 30.7 - 35.5 g/dL LAB HEMATOLOGY METHOD 06/23/2025 4:07 AM EDT [facility] RDW 15.9(H) 11.5 - 14.5 % LAB HEMATOLOGY METHOD 06/23/2025 4:07 AM EDT [facility] MPV 11.4 8.8 - 12.5 fL LAB HEMATOLOGY METHOD 06/23/2025 4:07 AM EDT [facility] nRBC 0.0 <=0.0 per 100 WBCs LAB HEMATOLOGY METHOD 06/23/2025 4:07 AM EDT [facility] Blood Venous blood specimen / Unknown Venipuncture / Unknown 06/23/2025 3:41 AM EDT 06/23/2025 4:00 AM EDT us Dyllan Paul MD LAB BLOOD ORDERABLES Final Re sult Performing Organization Address City/State/[facility] Co de Phone Number [facility] [address] [place] [address] * (ABNORMAL) Prothrombin Time/INR (06/23/2025 3:41 AM EDT) Pathologist [facility] Prothrombin Time 18.6(H) 12.0 - 14.3 sec LAB COAGULATION METHOD 06/23/2025 4:17 AM EDT [facility] INR 1.5(H) 0.9 - 1.1 LAB COAGULATION METHOD 06/23/2025 4:17 AM EDT [facility] Blood Venous blood specimen / Unknown Venipuncture / Unknown 06/23/2025 3:41 AM EDT 06/23/2025 4:00 AM EDT Narrative [facility] - 06/23/2025 4:17 AM EDT OPTIMAL INR RANGES FOR PATIENT ON ORAL ANTICOAGULANT THERAPY Prevention of venous thromboembolism INR 2.0 to 3.0 In patients with heart disease: Atrial fibrillation INR 2.0 to 3.0 Valvular heart disease INR 2.0 to 3.0 Tissue heart valves INR 2.0 to 3.0 Mechanical prosthetic valves INR 2.5 to 3.5 Prevention of recurrent AL INR 2.5 to 3.5 us Dyllan Paul MD LAB BLOOD ORDERABLES Final Re sult [facility] [address] [place] [address] * CT Angio Pulmonary Embolism (06/22/2025 2:26 [...] on 06/22/2025 3:28 PM Dyllan Paul MD IM CT PROCEDURES Final Resul t * Troponin T, High Sensitivity, 2 Hour, Plasma (06/22/2025 1:57 PM EDT) Troponin T, High Sensitivity, 2 Hour 16 <19 ng/L 06/22/2025 2:32 PM EDT [facility] Troponin Delta Interpretation Not Calculated 06/22/2025 2:32 PM EDT [facility] Comment:Specimen not collect ed within acceptable timeframe. Delta will not be calculated. Blood Venous blood specimen / Unknown Venipuncture / Unknown 06/22/2025 1:57 PM EDT 06/22/2025 2:04 PM EDT us Dyllan Paul MD LAB BLOOD ORDERABLES Final Re sult Performing Organization Address [facility]/[place] [address] * Lactate, venous (06/22/2025 12:33 PM EDT) [facility] Lactate, Venous, Whole Blood 2.1 0.5 - 2.2 mmol/L LAB HEMATOLOGY METHOD 06/22/2025 12:47 PM EDT [facility] Blood Venous blood specimen / Unknown Venipuncture / Unknown 06/22/2025 12:33 PM EDT 06/22/2025 12:45 PM EDT us Dyllan Paul MD LAB BLOOD ORDERABLES Final Re sult Performing Organization Address [facility]/ZIP Co de Phone Number [facility] [address] [place] [address] * Sedimentation Rate, Automated (06/22/2025 12:33 PM EDT) [facility] Sedimentation Rate 13 <20 mm/hr 2024 12:58 PM EDT [facility] Blood Venous blood specimen / Unknown Venipuncture / Unknown 06/22/2025 12:33 PM EDT 06/22/2025 12:44 PM EDT us Dyllan Paul MD LAB BLOOD ORDERABLES Final Re sult Performing Organization Address City/[facility] Co de Phone Number [facility] [address] [place] [address] * (ABNORMAL) C-reactive protein (06/22/2025 12:33 PM EDT) [facility] CRP, Plasma 58.6(H) <=8.0 mg/L 06/22/2025 1:19 PM EDT [facility] Blood Venous blood specimen / Unknown Venipuncture / Unknown 06/22/2025 12:33 PM EDT 06/22/2025 12:44 PM EDT Narrative [facility] - 06/22/2025 1:19 PM EDT This CRP test is appropriate for assessment of infection, systemic inflammation and/or tissue injury. To assess cardiovascular disease risk order high sensitivity CRP (CRPH). Dyllan Paul MD LAB BLOOD ORDERABLES Final Re sult Performing Organization Address [facility] Co de Phone Number [facility] [address] [place] [address] * (ABNORMAL) Procalcitonin (06/22/2025 12:33 PM EDT) Procalcitonin, Plasma 0.70(H) <0.09 ng/mL 06/22/2025 1:19 PM EDT [facility] Blood Venous blood specimen / Unknown Venipuncture / Unknown 06/22/2025 12:33 PM EDT 06/22/2025 12:44 PM EDT Narrative [facility] - 06/22/2025 1:19 PM EDT [...] predict 28 day mortality risk. Please consult [email or web address] for more information. Test performed at [facility]. Dyllan Paul MD LAB BLOOD ORDERABLES Final Re sult Performing Organization Address [facility]/ZIP Co de Phone Number [facility] [address] [place] [address] * Blood Culture (Aerobic/Anaerobet Set) (06/22/2025 12:33 PM EDT) Culture No growth at day 5 KEELY 06/27/2025 1:01 PM EDT [facility] Blood Venous blood specimen / Unknown Venipuncture / Unknown 06/22/2025 12:33 PM EDT 06/22/2025 12:47 PM EDT us Dyllan Paul MD LAB MICROBIOLOGY - GENERAL OR DERABLES Final Result Performing Organization Address [facility] [place] [address] * Troponin T, High Sensitivity, 0 Hour Plasma, Reflex to 2 Hour (06/22/2025 12:33 PM EDT) Troponin T, High Sensitivity, 0 Hour 14 <19 ng/L 06/22/2025 1:19 PM EDT [facility] Blood Venous blood specimen / Unknown Venipuncture / Unknown 06/22/2025 12:33 PM EDT 06/22/2025 12:44 PM EDT us Dyllan Paul MD LAB BLOOD ORDERABLES Final Re sult Performing Organization Address [facility] [place] [address] * CT Abdomen Pelvis w IV Contrast [...] - 899 pg/mL 06/22/2025 12:26 PM EDT [facility] Blood Venous blood specimen / Unknown Venipuncture / Unknown 06/22/2025 1:57 AM EDT 06/22/2025 2:09 AM EDT us Dyllan Paul MD LAB BLOOD ORDERABLES Final Re sult [facility] [address] [place] [address] * (ABNORMAL) Comprehensive metabolic panel (06/22/2025 1:57 AM EDT) Glucose, Plasma 107(H) 74 - 99 mg/dL 06/22/2025 2:38 AM EDT [facility] BUN, Plasma 39(H) 8 - 23 mg/dL 06/22/2025 2:38 AM EDT [facility] Creatinine, Plasma 1.15 0.70 - 1.20 mg/dL 06/22/2025 2:38 AM EDT [facility] BUN/Creatinine Ratio 34 06/22/2025 2:38 AM EDT [facility] Sodium, Plasma 139 136 - 145 mmol/L 06/22/2025 2:38 AM EDT [facility] Potassium, Plasma 3.5(L) 3.6 - 4.9 mmol/L 06/22/2025 2:38 AM EDT [facility] Chloride, Plasma 103 97 - 107 mmol/L 06/22/2025 2:38 AM EDT [facility] CO2, Plasma 24 22 - 29 mmol/L 06/22/2025 2:38 AM EDT [facility] Anion Gap 12 6 - 16 mmol/L 06/22/2025 2:38 AM EDT [facility] Total Calcium, Plasma 8.2(L) 8.9 - 10.2 mg/dL 06/22/2025 2:38 AM EDT [facility] Total Protein 4.4(L) 6.3 - 7.9 g/dL 06/22/2025 2:38 AM EDT [facility] Albumin, Plasma 2.6(L) 3.5 - 5.2 g/dL 06/22/2025 2:38 AM EDT [facility] AST, Plasma 78(H) 10 - 50 U/L 06/22/2025 2:38 AM EDT [facility] Comment:Hemolyzed, result ma y be falsely increased. ALT, Plasma 44 10 - 50 U/L 06/22/2025 2:38 AM EDT [facility] Alkaline Phosphatase, Plasma 130(H) 40 - 115 U/L 06/22/2025 2:38 AM EDT [facility] Total Bilirubin, Plasma 2.4(H) 0.2 - 1.1 mg/dL 06/22/2025 2:38 AM EDT [facility] eGFRcr 68.5 mL/min/1.7 3m*2 06/22/2025 2:38 AM EDT [facility] Comment:Reported eGFRcr in m L/min/1.73m2 is based the CKD-EPI 2020 equation that does not use a race coefficient. Blood Venous blood specimen / Unknown Venipuncture / Unknown 06/22/2025 1:57 AM EDT 06/22/2025 2:09 AM EDT us Dyllan Paul MD LAB BLOOD ORDERABLES Final Re sult [facility] [address] [place] [address] * Phosphorus (06/22/2025 1:57 AM EDT) Phosphorus, Plasma 3.2 2.5 - 4.5 mg/dL 06/22/2025 2:38 AM EDT [facility] Blood Venous blood specimen / Unknown Venipuncture / Unknown 06/22/2025 1:57 AM EDT 06/22/2025 2:09 AM EDT Dyllan Paul MD LAB BLOOD ORDERABLES Final Re sult Performing Organization Address [facility]/ZIP Co de Phone Number [facility] [address] [place] [address] * Magnesium (06/22/2025 1:57 AM EDT) Magnesium, Plasma 2.1 1.9 - 2.4 mg/dL 06/22/2025 2:38 AM EDT [facility] Blood Venous blood specimen / Unknown Venipuncture / Unknown 06/22/2025 1:57 AM EDT 06/22/2025 2:09 AM EDT Dyllan Paul MD LAB BLOOD ORDERABLES Final Re sult Performing Organization Address [facility] Co de Phone Number [facility] [address] [place] [address] * (ABNORMAL) Hemogram (CBC) (06/22/2025 1:57 AM EDT) WBC Count 16.88(H) 3.70 - 10.30 10*3/uL LAB HEMATOLOGY METHOD 06/22/2025 2:20 AM EDT [facility] RBC Count 3.61(L) 4.60 - 6.10 10*6/uL LAB HEMATOLOGY METHOD 06/22/2025 2:20 AM EDT [facility] HGB 11.6(L) 13.7 - 17.5 g/dL LAB HEMATOLOGY METHOD 06/22/2025 2:20 AM EDT [facility] HCT 34.2(L) 40.0 - 51.0 % LAB HEMATOLOGY METHOD 06/22/2025 2:20 AM EDT [facility] Platelet Count 119(L) 155 - 369 10*3/uL LAB HEMATOLOGY METHOD 06/22/2025 2:20 AM EDT [facility] MCV 95 79 - 98 fL LAB HEMATOLOGY METHOD 06/22/2025 2:20 AM EDT [facility] MCH 32.1(H) 26.0 - 32.0 pg LAB HEMATOLOGY METHOD 06/22/2025 2:20 AM EDT [facility] MCHC 33.9 30.7 - 35.5 g/dL LAB HEMATOLOGY METHOD 06/22/2025 2:20 AM EDT [facility] RDW 15.8(H) 11.5 - 14.5 % LAB HEMATOLOGY METHOD 06/22/2025 2:20 AM EDT [facility] MPV 11.8 8.8 - 12.5 fL LAB HEMATOLOGY METHOD 06/22/2025 2:20 AM EDT [facility] nRBC 0.2(H) <=0.0 per 100 WBCs LAB HEMATOLOGY METHOD 06/22/2025 2:20 AM EDT [facility] Blood Venous blood specimen / Unknown Venipuncture / Unknown 06/22/2025 1:57 AM EDT 06/22/2025 2:09 AM EDT Dyllan Paul MD LAB BLOOD ORDERABLES Final Re sult [facility] [address] [place] [address] * (ABNORMAL) Prothrombin Time/INR (06/22/2025 1:57 AM EDT) Prothrombin Time 18.3(H) 12.0 - 14.3 sec LAB COAGULATION METHOD 06/22/2025 2:29 AM EDT [facility] INR 1.5(H) 0.9 - 1.1 LAB COAGULATION METHOD 06/22/2025 2:29 AM EDT [facility] Blood Venous blood specimen / Unknown Venipuncture / Unknown 06/22/2025 1:57 AM EDT 06/22/2025 2:09 AM EDT Narrative [facility] - 06/22/2025 2:29 AM EDT OPTIMAL INR RANGES FOR PATIENT ON ORAL ANTICOAGULANT THERAPY Prevention of venous thromboembolism INR 2.0 to 3.0 In patients with heart disease: Atrial fibrillation INR 2.0 to 3.0 Valvular heart disease INR 2.0 to 3.0 Tissue heart valves INR 2.0 to 3.0 Mechanical prosthetic valves INR 2.5 to 3.5 Prevention of recurrent AL INR 2.5 to 3.5 us Dyllan Paul MD LAB BLOOD ORDERABLES Final Re sult [facility] [address] [place] [address] * (ABNORMAL) Comprehensive metabolic panel (06/21/2025 3:25 AM EDT) Glucose, Plasma 105(H) 74 - 99 mg/dL 06/21/2025 4:03 AM EDT [facility] BUN, Plasma 46(H) 8 - 23 mg/dL 06/21/2025 4:03 AM EDT [facility] Creatinine, Plasma 1.24(H) 0.70 - 1.20 mg/dL 06/21/2025 4:03 AM EDT [facility] BUN/Creatinine Ratio 37 06/21/2025 4:03 AM EDT [facility] Sodium, Plasma 138 136 - 145 mmol/L 06/21/2025 4:03 AM EDT [facility] Potassium, Plasma 3.5(L) 3.6 - 4.9 mmol/L 06/21/2025 4:03 AM EDT [facility] Chloride, Plasma 102 97 - 107 mmol/L 06/21/2025 4:03 AM EDT [facility] CO2, Plasma 24 22 - 29 mmol/L 06/21/2025 4:03 AM EDT [facility] Anion Gap 12 6 - 16 mmol/L 06/21/2025 4:03 AM EDT [facility] Total Calcium, Plasma 8.3(L) 8.9 - 10.2 mg/dL 06/21/2025 4:03 AM EDT [facility] Total Protein 4.8(L) 6.3 - 7.9 g/dL 06/21/2025 4:03 AM EDT [facility] Albumin, Plasma 2.5(L) 3.5 - 5.2 g/dL 06/21/2025 4:03 AM EDT [facility] AST, Plasma 73(H) 10 - 50 U/L 06/21/2025 4:03 AM EDT [facility] ALT, Plasma 41 10 - 50 U/L 06/21/2025 4:03 AM EDT [facility] Alkaline Phosphatase, Plasma 125(H) 40 - 115 U/L 06/21/2025 4:03 AM EDT [facility] Total Bilirubin, Plasma 3.4(H) 0.2 - 1.1 mg/dL 06/21/2025 4:03 AM EDT [facility] eGFRcr 62.5 mL/min/1.7 3m*2 06/21/2025 4:03 AM EDT [facility] Comment:Reported eGFRcr in m L/min/1.73m2 is based the CKD-EPI 2020 equation that does not use a race coefficient. Blood Venous blood specimen / Unknown Venipuncture / Unknown 06/21/2025 3:25 AM EDT 06/21/2025 3:33 AM EDT Dyllan Paul MD LAB BLOOD ORDERABLES Final Re sult Performing Organization Address City/[facility]/ZIP Co de Phone Number [facility] [address] [place] [address] * Phosphorus (06/21/2025 3:25 AM EDT) Phosphorus, Plasma 3.7 2.5 - 4.5 mg/dL 06/21/2025 4:03 AM EDT [facility] Blood Venous blood specimen / Unknown Venipuncture / Unknown 06/21/2025 3:25 AM EDT 06/21/2025 3:33 AM EDT us Dyllan Paul MD LAB BLOOD ORDERABLES Final Re sult Performing Organization Address City/[facility]/ZIP Co de Phone Number [facility] [address] [place] [address] * Magnesium (06/21/2025 3:25 AM EDT) Magnesium, Plasma 2.1 1.9 - 2.4 mg/dL 06/21/2025 4:03 AM EDT [facility] Blood Venous blood specimen / Unknown Venipuncture / Unknown 06/21/2025 3:25 AM EDT 06/21/2025 3:33 AM EDT Dyllan Paul MD LAB BLOOD ORDERABLES Final Re sult [facility] [address] [place] [address] * (ABNORMAL) Hemogram (CBC) (06/21/2025 3:25 AM EDT) WBC Count 15.49(H) 3.70 - 10.30 10*3/uL LAB HEMATOLOGY METHOD 06/21/2025 3:43 AM EDT [facility] RBC Count 3.73(L) 4.60 - 6.10 10*6/uL LAB HEMATOLOGY METHOD 06/21/2025 3:43 AM EDT [facility] HGB 12.3(L) 13.7 - 17.5 g/dL LAB HEMATOLOGY METHOD 06/21/2025 3:43 AM EDT [facility] HCT 35.1(L) 40.0 - 51.0 % LAB HEMATOLOGY METHOD 06/21/2025 3:43 AM EDT [facility] Platelet Count 107(L) 155 - 369 10*3/uL LAB HEMATOLOGY METHOD 06/21/2025 3:43 AM EDT [facility] MCV 94 79 - 98 fL LAB HEMATOLOGY METHOD 06/21/2025 3:43 AM EDT [facility] MCH 33.0(H) 26.0 - 32.0 pg LAB HEMATOLOGY METHOD 06/21/2025 3:43 AM EDT [facility] MCHC 35.0 30.7 - 35.5 g/dL LAB HEMATOLOGY METHOD 06/21/2025 3:43 AM EDT [facility] RDW 15.9(H) 11.5 - 14.5 % LAB HEMATOLOGY METHOD 06/21/2025 3:43 AM EDT [facility] MPV 11.8 8.8 - 12.5 fL LAB HEMATOLOGY METHOD 06/21/2025 3:43 AM EDT [facility] nRBC 0.2(H) <=0.0 per 100 WBCs LAB HEMATOLOGY METHOD 06/21/2025 3:43 AM EDT [facility] Blood Venous blood specimen / Unknown Venipuncture / Unknown 06/21/2025 3:25 AM EDT 06/21/2025 3:33 AM EDT Dyllan Paul MD LAB BLOOD ORDERABLES Final Re sult Performing Organization Address [facility]/ZIP Co de Phone Number [facility] [address] [place] [address] * (ABNORMAL) Prothrombin Time/INR (06/21/2025 3:25 AM EDT) [facility] Prothrombin Time 18.7(H) 12.0 - 14.3 sec LAB COAGULATION METHOD 06/21/2025 4:27 AM EDT [facility] INR 1.5(H) 0.9 - 1.1 LAB COAGULATION METHOD 06/21/2025 4:27 AM EDT [facility] Blood Venous blood specimen / Unknown Venipuncture / Unknown 06/21/2025 3:25 AM EDT 06/21/2025 3:32 AM EDT Narrative [facility] - 06/21/2025 4:27 AM EDT OPTIMAL INR RANGES FOR PATIENT ON ORAL ANTICOAGULANT THERAPY Prevention of venous thromboembolism INR 2.0 to 3.0 In patients with heart disease: Atrial fibrillation INR 2.0 to 3.0 Valvular heart disease INR 2.0 to 3.0 Tissue heart valves INR 2.0 to 3.0 Mechanical prosthetic valves INR 2.5 to 3.5 Prevention of recurrent AL INR 2.5 to 3.5 Dyllan Paul MD LAB BLOOD ORDERABLES Final Re sult Performing Organization Address City/[facility]/ZIP Co de Phone Number [facility] [address] [place] [address] * Creatinine, Drain Fluid (06/20/2025 1:43 PM EDT) Creatinine, Fluid 1.35 mg/dL 06/20/2025 3:10 PM EDT [facility] Fluid Drainage fluid specimen / Unknown 06/20/2025 1:43 PM EDT 06/20/2025 2:15 PM EDT Narrative [facility] - 06/20/2025 3:10 PM EDT Reference Values: No established reference interval. Results should be interpreted in comparison to the concentration in blood and in conjunction with the clinical context. This test was developed and its performance characteristics determined by [facility]. The U.S. Food and Drug [...] FLUIDS AND STOOLS OR DERABLES Final Result [facility] [address] [place] [address] * (ABNORMAL) Hemogram (CBC) (06/20/2025 11:12 AM EDT) Pathologist [facility] WBC Count 14.75(H) 3.70 - 10.30 10*3/uL LAB HEMATOLOGY METHOD 06/20/2025 11:31 AM EDT [facility] RBC Count 3.67(L) 4.60 - 6.10 10*6/uL LAB HEMATOLOGY METHOD 06/20/2025 11:31 AM EDT [facility] HGB 12.2(L) 13.7 - 17.5 g/dL LAB HEMATOLOGY METHOD 06/20/2025 11:31 AM EDT [facility] HCT 35.0(L) 40.0 - 51.0 % LAB HEMATOLOGY METHOD 06/20/2025 11:31 AM EDT [facility] Platelet Count 103(L) 155 - 369 10*3/uL LAB HEMATOLOGY METHOD 06/20/2025 11:31 AM EDT [facility] MCV 95 79 - 98 fL LAB HEMATOLOGY METHOD 06/20/2025 11:31 AM EDT [facility] MCH 33.2(H) 26.0 - 32.0 pg LAB HEMATOLOGY METHOD 06/20/2025 11:31 AM EDT [facility] MCHC 34.9 30.7 - 35.5 g/dL LAB HEMATOLOGY METHOD 06/20/2025 11:31 AM EDT [facility] RDW 15.9(H) 11.5 - 14.5 % LAB HEMATOLOGY METHOD 06/20/2025 11:31 AM EDT [facility] MPV 11.4 8.8 - 12.5 fL LAB HEMATOLOGY METHOD 06/20/2025 11:31 AM EDT [facility] nRBC 0.1(H) <=0.0 per 100 WBCs LAB HEMATOLOGY METHOD 06/20/2025 11:31 AM EDT [facility] Blood Venous blood specimen / Unknown Venipuncture / Unknown 06/20/2025 11:12 AM EDT 06/20/2025 11:19 AM EDT us Dyllan Paul MD LAB BLOOD ORDERABLES Final Re sult [facility] [address] [place] [address] * (ABNORMAL) Blood gas panel, venous (06/20/2025 11:12 AM EDT) pH, Venous 7.44(H) 7.32 - 7.43 LAB HEMATOLOGY METHOD 06/20/2025 11:23 AM EDT [facility] pCO2, Venous 38(L) 40 - 55 mmHg LAB HEMATOLOGY METHOD 06/20/2025 11:23 AM EDT [facility] pO2, Venous 60(H) 25 - 40 mmHg LAB HEMATOLOGY METHOD 06/20/2025 11:23 AM EDT [facility] SO2, Measured, Venous 88(H) 65 - 80 % LAB HEMATOLOGY METHOD 06/20/2025 11:23 AM EDT [facility] Base Excess, Venous 1.5 -2.0 - 3.0 mmol/L LAB HEMATOLOGY METHOD 06/20/2025 11:23 AM EDT [facility] Bicarbonate, Calculated, Venous 26 22 - 26 mmol/L LAB HEMATOLOGY METHOD 06/20/2025 11:23 AM EDT [facility] Hematocrit, Whole Blood 32.5(L) 40.0 - 51.0 % LAB HEMATOLOGY METHOD 06/20/2025 11:23 AM EDT [facility] Sodium, Whole Blood 135(L) 136 - 145 mmol/L LAB HEMATOLOGY METHOD 06/20/2025 11:23 AM EDT [facility] Potassium, Whole Blood 2.8(L) 3.6 - 4.9 mmol/L LAB HEMATOLOGY METHOD 06/20/2025 11:23 AM EDT [facility] Chloride, Whole Blood 101 97 - 107 mmol/L LAB HEMATOLOGY METHOD 06/20/2025 11:23 AM EDT [facility] Glucose, Whole Blood 164(H) 74 - 99 mg/dL LAB HEMATOLOGY METHOD 06/20/2025 11:23 AM EDT [facility] Lactate, Venous, Whole Blood 2.5(H) 0.5 - 2.2 mmol/L LAB HEMATOLOGY METHOD 06/20/2025 11:23 AM EDT [facility] Ionized Calcium, Whole Blood 4.4(L) 4.6 - 5.1 mg/dL LAB HEMATOLOGY METHOD 06/20/2025 11:23 AM EDT [facility] Blood Venous blood specimen / Unknown Venipuncture / Unknown 06/20/2025 11:12 AM EDT 06/20/2025 11:20 AM EDT us Dyllan Paul MD LAB BLOOD ORDERABLES Final Re sult [facility] [address] [place] [address] * [place] Cystogram (06/20/2025 10:01 AM EDT) [...] radiograph from June 14, 2025. FINDINGS: On skiagrapher images, there are 3 rounded calcifications overlying [...] 2025. Abdominal radiograph from 2024. FINDINGS: On skiagrapher images, there are 3 rounded calcifications overlying [...] - 99 mg/dL 06/20/2025 2:42 AM EDT [facility] BUN, Plasma 50(H) 8 - 23 mg/dL 06/20/2025 2:42 AM EDT [facility] Creatinine, Plasma 1.28(H) 0.70 - 1.20 mg/dL 06/20/2025 2:42 AM EDT [facility] BUN/Creatinine Ratio 39 06/20/2025 2:42 AM EDT [facility] Sodium, Plasma 139 136 - 145 mmol/L 06/20/2025 2:42 AM EDT [facility] Potassium, Plasma 4.2 3.6 - 4.9 mmol/L 06/20/2025 2:42 AM EDT [facility] Comment:Hemolyzed, result ma y be falsely increased. Chloride, Plasma 105 97 - 107 mmol/L 06/20/2025 2:42 AM EDT [facility] CO2, Plasma 21(L) 22 - 29 mmol/L 06/20/2025 2:42 AM EDT [facility] Anion Gap 13 6 - 16 mmol/L 06/20/2025 2:42 AM EDT [facility] Total Calcium, Plasma 8.6(L) 8.9 - 10.2 mg/dL 06/20/2025 2:42 AM EDT [facility] Total Protein 4.9(L) 6.3 - 7.9 g/dL 06/20/2025 2:42 AM EDT [facility] Albumin, Plasma 2.5(L) 3.5 - 5.2 g/dL 06/20/2025 2:42 AM EDT [facility] AST, Plasma 83(H) 10 - 50 U/L 06/20/2025 2:42 AM EDT [facility] Comment:Hemolyzed, result ma y be falsely increased. ALT, Plasma 36 10 - 50 U/L 06/20/2025 2:42 AM EDT [facility] Comment:Hemolyzed, result ma y be falsely increased or decreased. Alkaline Phosphatase, Plasma 133(H) 40 - 115 U/L 06/20/2025 2:42 AM EDT [facility] Total Bilirubin, Plasma 2.8(H) 0.2 - 1.1 mg/dL 06/20/2025 2:42 AM EDT [facility] eGFRcr 60.2 mL/min/1.7 3m*2 06/20/2025 2:42 AM EDT [facility] Comment:Reported eGFRcr in m L/min/1.73m2 is based the CKD-EPI 2020 equation that does not use a race coefficient. Blood Venous blood specimen / Unknown Venipuncture / Unknown 06/20/2025 2:07 AM EDT 06/20/2025 2:14 AM EDT Dyllan Paul MD LAB BLOOD ORDERABLES Final Re sult Performing Organization Address [facility]/ZIP Co de Phone Number [facility] [address] [place] [address] * (ABNORMAL) Phosphorus (06/20/2025 2:07 AM EDT) Phosphorus, Plasma 4.7(H) 2.5 - 4.5 mg/dL 06/20/2025 2:42 AM EDT [facility] Blood Venous blood specimen / Unknown Venipuncture / Unknown 06/20/2025 2:07 AM EDT 06/20/2025 2:14 AM EDT Dyllan Paul MD LAB BLOOD ORDERABLES Final Re sult Performing Organization Address [facility] [place] [address] * Magnesium (06/20/2025 2:07 AM EDT) Magnesium, Plasma 2.0 1.9 - 2.4 mg/dL 06/20/2025 2:42 AM EDT [facility] Blood Venous blood specimen / Unknown Venipuncture / Unknown 06/20/2025 2:07 AM EDT 06/20/2025 2:14 AM EDT Dyllan Paul MD LAB BLOOD ORDERABLES Final Re sult Performing Organization Address [facility] Co de Phone Number [facility] [address] [place] [address] * (ABNORMAL) Prothrombin Time/INR (06/20/2025 2:07 AM EDT) Prothrombin Time 16.9(H) 12.0 - 14.3 sec LAB COAGULATION METHOD 06/20/2025 2:31 AM EDT [facility] INR 1.3(H) 0.9 - 1.1 LAB COAGULATION METHOD 06/20/2025 2:31 AM EDT [facility] Blood Venous blood specimen / Unknown Venipuncture / Unknown 06/20/2025 2:07 AM EDT 06/20/2025 2:14 AM EDT Narrative [facility] - 06/20/2025 2:31 AM EDT OPTIMAL INR RANGES FOR PATIENT ON ORAL ANTICOAGULANT THERAPY Prevention of venous thromboembolism INR 2.0 to 3.0 In patients with heart disease: Atrial fibrillation INR 2.0 to 3.0 Valvular heart disease INR 2.0 to 3.0 Tissue heart valves INR 2.0 to 3.0 Mechanical prosthetic valves INR 2.5 to 3.5 Prevention of recurrent AL INR 2.5 to 3.5 Dyllan Paul MD LAB BLOOD ORDERABLES Final Re sult Performing Organization Address [facility] [place] [address] * Urinalysis Microscopic Examination (06/19/2025 2:16 PM EDT) Urine Urine specimen obtained by clean catch procedure / Unknown Non-blood Collection / Unknown 06/19/2025 2:16 PM EDT 06/19/2025 2:23 PM EDT Dyllan Paul MD LAB URINE ORDERABLES Final Re sult Performing Organization Address [facility] [place] [address] * Osmolality, urine (06/19/2025 2:16 PM EDT) Pathologist [facility] Osmolality, Urine 645 50 - 1,200 mOsm/kg 06/19/2025 3:14 PM EDT [facility] Urine Urine specimen obtained by clean catch procedure / Unknown Non-blood Collection / Unknown 06/19/2025 2:16 PM EDT 06/19/2025 2:31 PM EDT Dyllan Paul MD LAB URINE ORDERABLES Final Re sult Performing Organization Address [facility] Co de Phone Number [facility] [address] [place] [address] * Creatinine, urine, random (06/19/2025 2:16 PM EDT) Creatinine, Urine 99 mg/dL 06/19/2025 3:06 PM EDT [facility] Urine Urine specimen obtained by clean catch procedure / Unknown Non-blood Collection / Unknown 06/19/2025 2:16 PM EDT 06/19/2025 2:22 PM EDT Dyllan Paul MD LAB URINE ORDERABLES Final Re sult Performing Organization Address [facility]/ZIP Co de Phone Number [facility] [address] [place] [address] * Sodium, urine, random (06/19/2025 2:16 PM EDT) Sodium, Urine <20 mmol/L 06/19/2025 3:06 PM EDT [facility] Urine Urine specimen obtained by clean catch procedure / Unknown Non-blood Collection / Unknown 06/19/2025 2:16 PM EDT 06/19/2025 2:22 PM EDT us Dyllan Paul MD LAB URINE ORDERABLES Final Re sult Performing Organization Address [facility]/ZIP Co de Phone Number [facility] [address] [place] [address] * (ABNORMAL) Urinalysis with reflex microscopic (Culture NOT Included) (06/19/2025 2:16 PM EDT) Color, Urine Yellow LAB URINALYSIS - AUTOMATED METHOD 06/19/2025 2:33 PM EDT [facility] Clarity, Urine Clear LAB URINALYSIS - AUTOMATED METHOD 06/19/2025 2:33 PM EDT [facility] Spec [place], Urine 1.024 1.005 - 1.030 LAB URINALYSIS - AUTOMATED METHOD 06/19/2025 2:33 PM EDT [facility] pH, Urine 6.0 5.0 - 8.0 LAB URINALYSIS - AUTOMATED METHOD 06/19/2025 2:33 PM EDT [facility] Protein, Urine 30(A) Negative mg/dL LAB URINALYSIS - AUTOMATED METHOD 06/19/2025 2:33 PM EDT [facility] Glucose, Urine Negative Negative mg/dL LAB URINALYSIS - AUTOMATED METHOD 06/19/2025 2:33 PM EDT [facility] Ketones, Urine Trace(A) Negative mg/dL LAB URINALYSIS - AUTOMATED METHOD 06/19/2025 2:33 PM EDT [facility] Blood, Urine Large(A) Negative LAB URINALYSIS - AUTOMATED METHOD 06/19/2025 2:33 PM EDT [facility] Bilirubin, Urine Negative Negative LAB URINALYSIS - AUTOMATED METHOD 06/19/2025 2:33 PM EDT [facility] Urobilinogen, Urine 1.0 0.2 to 1.0 mg/dL LAB URINALYSIS - AUTOMATED METHOD 06/19/2025 2:33 PM EDT [facility] Leukocytes, Urine Small(A) Negative LAB URINALYSIS - AUTOMATED METHOD 06/19/2025 2:33 PM EDT [facility] Nitrite, Urine Negative Negative LAB URINALYSIS - AUTOMATED METHOD 06/19/2025 2:33 PM EDT [facility] RBC, Urine >50(A) 0 to 3 /HPF LAB URINALYSIS - AUTOMATED METHOD 06/19/2025 2:33 PM EDT [facility] WBC, Urine 6 - 10(A) 0 to 5 /HPF LAB URINALYSIS - AUTOMATED METHOD 06/19/2025 2:33 PM EDT [facility] Squamous Epithelial Cells 0 - 2 0 to 5 /HPF LAB URINALYSIS - AUTOMATED METHOD 06/19/2025 2:33 PM EDT [facility] Hyaline Casts 0 - 2 0 to 5 /LPF LAB URINALYSIS - AUTOMATED METHOD 06/19/2025 2:33 PM EDT [facility] Bacteria, Urine Negative Negative LAB URINALYSIS - AUTOMATED METHOD 06/19/2025 2:33 PM EDT [facility] Urine Urine specimen obtained by clean catch procedure / Unknown Non-blood Collection / Unknown 06/19/2025 2:16 PM EDT 06/19/2025 2:23 PM EDT us Dyllan Paul MD LAB URINE ORDERABLES Final Re sult [facility] [address] [place] [address] * (ABNORMAL) POCT glucose meter (06/19/2025 12:41 PM EDT) [facility] POCT Glucose 127(H) 74 - 99 mg/dL 06/19/2025 12:43 PM EDT [facility] Comment:Accuracy of [...] for testing. Comment 06/19/2025 12:43 PM EDT [facility] Ornament Stapler ID Sanjuana Sapp 06/19/2025 12:43 PM EDT [facility] Device ID [id number] 06/19/2025 12:43 PM EDT [facility] Specimen Type POC Capillary 06/19/2025 12:43 PM EDT [facility] Blood Capillary blood specimen / Unknown 06/19/2025 12:41 PM EDT 06/19/2025 12:43 PM EDT Dyllan Paul MD LAB POINT OF CARE TE ST DOCKED DEVICE UNSOLICITED RESULTS Final Result [facility] [address] [place] [address] * (ABNORMAL) POCT glucose meter (06/19/2025 9:58 AM EDT) [facility] POCT Glucose 125(H) 74 - 99 [...] 06/19/2025 10:00 AM EDT [facility] Ornament Stapler ID Mane Sappon 06/19/2025 10:00 AM EDT [facility] Device ID [id number] 06/19/2025 10:00 AM EDT [facility] Specimen Type POC Capillary 06/19/2025 10:00 AM EDT [facility] Blood Capillary blood specimen / Unknown 06/19/2025 9:58 AM EDT 06/19/2025 10:00 AM EDT Dyllan Paul MD LAB POINT OF CARE TE ST DOCKED DEVICE UNSOLICITED RESULTS Final Result Performing Organization Address City/[facility] Co de Phone Number [facility] [address] [place] [address] * (ABNORMAL) POCT glucose meter (06/19/2025 5:49 AM EDT) [facility] POCT Glucose 141(H) 74 - 99 [...] Comment 06/19/2025 5:51 AM EDT [facility] Ornament Stapler ID Kathy Palmer 06/19/2025 5:51 AM EDT [facility] Device ID [id number] 06/19/2025 5:51 AM EDT [facility] Specimen Type POC Capillary 06/19/2025 5:51 AM EDT [facility] Blood Capillary blood specimen / Unknown 06/19/2025 5:49 AM EDT 06/19/2025 5:51 AM EDT Dyllan Paul MD LAB POINT OF CARE TE ST DOCKED DEVICE UNSOLICITED RESULTS Final Result Performing Organization Address City/[facility] Co de Phone Number [facility] [address] [place] [address] * (ABNORMAL) Hepatic function panel (06/19/2025 1:00 AM EDT) Pathologist [facility] Conjugated Bilirubin, Plasma 1.1(H) <=0.3 mg/dL 06/19/2025 6:48 PM EDT [facility] Comment:Hemolyzed, result ma y be falsely decreased. Alkaline Phosphatase, Plasma 179(H) 40 - 115 U/L 06/19/2025 6:48 PM EDT [facility] Total Bilirubin, Plasma 2.5(H) 0.2 - 1.1 mg/dL 06/19/2025 6:48 PM EDT [facility] Albumin, Plasma 2.7(L) 3.5 - 5.2 g/dL 06/19/2025 6:48 PM EDT [facility] Total Protein 5.1(L) 6.3 - 7.9 g/dL 06/19/2025 6:48 PM EDT [facility] ALT, Plasma 33 10 - 50 U/L 06/19/2025 6:48 PM EDT [facility] AST, Plasma 59(H) 10 - 50 U/L 06/19/2025 6:48 PM EDT [facility] Comment:Hemolyzed, result ma y be falsely increased. Blood Venous blood specimen / Unknown Venipuncture / Unknown 06/19/2025 1:00 AM EDT 06/19/2025 1:04 AM EDT us Anna Armas MD LAB BLOOD ORDERABLES Final Resul t Performing Organization Address City/[facility]/ZIP Co de Phone Number [facility] [address] [place] [address] * (ABNORMAL) Cystatin C (06/19/2025 1:00 AM EDT) Cystatin C 1.9(H) 0.61 - 0.95 mg/L 06/19/2025 2:07 PM EDT [facility] Blood Venous blood specimen / Unknown Venipuncture / Unknown 06/19/2025 1:00 AM EDT 06/19/2025 1:04 AM EDT us Dyllan Paul MD LAB BLOOD ORDERABLES Final Re sult [facility] [address] [place] [address] * (ABNORMAL) Osmolality (06/19/2025 1:00 AM EDT) Pathologist [facility] Osmolality, Serum 311(H) 280 - 301 mOsm/Kg 06/19/2025 1:05 PM EDT [facility] Blood Venous blood specimen / Unknown Venipuncture / Unknown 06/19/2025 1:00 AM EDT 06/19/2025 1:04 AM EDT Dyllan Paul MD LAB BLOOD ORDERABLES [place] [address] * Phosphorus (06/19/2025 1:00 AM EDT) [facility] Phosphorus, Plasma 3.8 2.5 - 4.5 mg/dL 06/19/2025 1:33 AM EDT [facility] Blood Venous blood specimen / Unknown Venipuncture / Unknown 06/19/2025 1:00 AM EDT 06/19/2025 1:04 AM EDT us Dyllan Paul MD LAB BLOOD ORDERABLES [place] [address] * Magnesium (06/19/2025 1:00 AM EDT) [facility] Magnesium, Plasma 2.0 1.9 - 2.4 mg/dL 06/19/2025 1:33 AM EDT [facility] Blood Venous blood specimen / Unknown Venipuncture / Unknown 06/19/2025 1:00 AM EDT 06/19/2025 1:04 AM EDT us Dyllan Paul MD LAB BLOOD ORDERABLES [place] [address] * (ABNORMAL) Basic metabolic panel (06/19/2025 1:00 AM EDT) Glucose, Plasma 131(H) 74 - 99 mg/dL 06/19/2025 1:33 AM EDT [facility] BUN, Plasma 51(H) 8 - 23 mg/dL 06/19/2025 1:33 AM EDT [facility] Creatinine, Plasma 1.29(H) 0.70 - 1.20 mg/dL 06/19/2025 1:33 AM EDT [facility] BUN/Creatinine Ratio 40 06/19/2025 1:33 AM EDT [facility] Sodium, Plasma 146(H) 136 - 145 mmol/L 06/19/2025 1:33 AM EDT [facility] Potassium, Plasma 3.6 3.6 - 4.9 mmol/L 06/19/2025 1:33 AM EDT [facility] Chloride, Plasma 111(H) 97 - 107 mmol/L 06/19/2025 1:33 AM EDT [facility] CO2, Plasma 25 22 - 29 mmol/L 06/19/2025 1:33 AM EDT [facility] Anion Gap 10 6 - 16 mmol/L 06/19/2025 1:33 AM EDT [facility] Total Calcium, Plasma 8.9 8.9 - 10.2 mg/dL 06/19/2025 1:33 AM EDT [facility] eGFRcr 59.6 mL/min/1.7 3m*2 06/19/2025 1:33 AM EDT [facility] Comment:Reported eGFRcr in m L/min/1.73m2 is based the CKD-EPI 2020 equation that does not use a race coefficient. Blood Venous blood specimen / Unknown Venipuncture / Unknown 06/19/2025 1:00 AM EDT 06/19/2025 1:04 AM EDT us Dyllan Paul MD LAB BLOOD ORDERABLES Final Re sult [facility] [address] [place] [address] * (ABNORMAL) Hemogram (CBC) (06/19/2025 1:00 AM EDT) WBC Count 13.62(H) 3.70 - 10.30 10*3/uL LAB HEMATOLOGY METHOD 06/19/2025 1:11 AM EDT [facility] RBC Count 3.72(L) 4.60 - 6.10 10*6/uL LAB HEMATOLOGY METHOD 06/19/2025 1:11 AM EDT [facility] HGB 12.1(L) 13.7 - 17.5 g/dL LAB HEMATOLOGY METHOD 06/19/2025 1:11 AM EDT [facility] HCT 36.3(L) 40.0 - 51.0 % LAB HEMATOLOGY METHOD 06/19/2025 1:11 AM EDT [facility] Platelet Count 90(L) 155 - 369 10*3/uL LAB HEMATOLOGY METHOD 06/19/2025 1:11 AM EDT [facility] MCV 98 79 - 98 fL LAB HEMATOLOGY METHOD 06/19/2025 1:11 AM EDT [facility] MCH 32.5(H) 26.0 - 32.0 pg LAB HEMATOLOGY METHOD 06/19/2025 1:11 AM EDT [facility] MCHC 33.3 30.7 - 35.5 g/dL LAB HEMATOLOGY METHOD 06/19/2025 1:11 AM EDT [facility] RDW 16.5(H) 11.5 - 14.5 % LAB HEMATOLOGY METHOD 06/19/2025 1:11 AM EDT [facility] MPV 12.4 8.8 - 12.5 fL LAB HEMATOLOGY METHOD 06/19/2025 1:11 AM EDT [facility] nRBC 0.1(H) <=0.0 per 100 WBCs LAB HEMATOLOGY METHOD 06/19/2025 1:11 AM EDT [facility] Blood Venous blood specimen / Unknown Venipuncture / Unknown 06/19/2025 1:00 AM EDT 06/19/2025 1:04 AM EDT us Dyllan Paul MD LAB BLOOD ORDERABLES Final Re sult [facility] [address] [place] [address] * Ammonia, Plasma (06/19/2025 1:00 AM EDT) Pathologist [facility] Ammonia 45 11 - 51 umol/L 06/19/2025 1:29 AM EDT [facility] Comment:Improper specimen marquez ndling may falsely increase results. Blood Venous blood specimen / Unknown Venipuncture / Unknown 06/19/2025 1:00 AM EDT 06/19/2025 1:04 AM EDT us Michelle Iniguez APRN LAB BLOOD ORDERABLES Final R esult [facility] [address] [place] [address] * (ABNORMAL) POCT glucose meter (06/19/2025 12:59 AM EDT) Pathologist [facility] POCT Glucose 123(H) 74 - 99 mg/dL [...] Comment 06/19/2025 1:03 AM EDT [facility] Or[employer] Stapler ID Kathy Palmer 06/19/2025 1:03 AM EDT [facility] Device ID [id number] 06/19/2025 1:03 AM EDT [facility] Specimen Type POC Venous 06/19/2025 1:03 AM EDT [facility] Blood Venous blood specimen / Unknown 06/19/2025 12:59 AM EDT 06/19/2025 1:03 AM EDT us Dyllan Paul MD LAB POINT OF CARE TE ST DOCKED DEVICE UNSOLICITED RESULTS Final Result [facility] [address] [place] [address] * (ABNORMAL) POCT glucose meter (06/18/2025 5:37 PM EDT) Pathologist [facility] POCT Glucose 150(H) 74 - 99 mg/dL [...] Comment 06/18/2025 5:39 PM EDT [facility] [employer] ID Lesia Booth 5:39 PM EDT [facility] Device ID [id number] 06/18/2025 5:39 PM EDT [facility] Specimen Type POC Capillary 06/18/2025 5:39 PM EDT [facility] Blood Capillary blood specimen / Unknown 06/18/2025 5:37 PM EDT 06/18/2025 5:39 PM EDT Dyllan Paul MD LAB POINT OF CARE TE ST DOCKED DEVICE UNSOLICITED RESULTS Final Result Performing Organization Address City/State/[facility] Co de Phone Number [facility] [address] [place] [address] * (ABNORMAL) POCT glucose meter (06/18/2025 12:29 PM EDT) [facility] POCT Glucose 153(H) 74 - 99 [...] for testing. Comment 06/18/2025 12:30 PM EDT [facility] [employer] Stapler ID Lesia Booth 12:30 PM EDT [facility] Device ID [id number] 06/18/2025 12:30 PM EDT [facility] Specimen Type POC Capillary 06/18/2025 12:30 PM EDT [facility] Blood Capillary blood specimen / Unknown 06/18/2025 12:29 PM EDT 06/18/2025 12:30 PM EDT us Dyllan Paul MD LAB POINT OF CARE TE ST DOCKED DEVICE UNSOLICITED RESULTS Final Result Performing Organization Address City/State/[facility] de Phone Number [facility] [address] [place] [address] * [facility], E/M 30-74 MINUTES (06/18/2025 9:49 [...] 99 mg/dL 06/18/2025 5:52 AM EDT [facility] Comment:Accuracy of a glucos e result [...] Comment 06/18/2025 5:52 AM EDT [facility] [employer] Stapler ID Aurea Schaefer 06/18/2025 5:52 AM EDT [facility] Device ID [id number] 06/18/2025 5:52 AM EDT [facility] Specimen Type POC Arterial 06/18/2025 5:52 AM EDT [facility] Blood Arterial blood specimen / Unknown 06/18/2025 5:50 AM EDT 06/18/2025 5:52 AM EDT us Dyllan Paul MD LAB POINT OF CARE TE ST DOCKED DEVICE UNSOLICITED RESULTS Final Result [facility] [address] [place] [address] * (ABNORMAL) Blood gas panel, arterial (06/18/2025 5:47 AM EDT) pH, Arterial 7.48(H) 7.31 - 7.42 LAB HEMATOLOGY METHOD 06/18/2025 5:59 AM EDT [facility] pCO2, Arterial 36 32 - 45 mmHg LAB HEMATOLOGY METHOD 06/18/2025 5:59 AM EDT [facility] pO2, Arterial 63(L) >70 mmHg LAB HEMATOLOGY METHOD 06/18/2025 5:59 AM EDT [facility] SO2, Measured, Arterial 94 94 - 98 % LAB HEMATOLOGY METHOD 06/18/2025 5:59 AM EDT [facility] Base Excess, Arterial 3.3(H) -2.0 - 3.0 mmol/L LAB HEMATOLOGY METHOD 06/18/2025 5:59 AM EDT [facility] Bicarbonate, Calculated, Arterial 27(H) 22 - 26 mmol/L LAB HEMATOLOGY METHOD 06/18/2025 5:59 AM EDT [facility] Hematocrit, Whole Blood 37.9(L) 40.0 - 51.0 % LAB HEMATOLOGY METHOD 06/18/2025 5:59 AM EDT [facility] Sodium, Whole Blood 153(H) 136 - 145 mmol/L LAB HEMATOLOGY METHOD 06/18/2025 5:59 AM EDT [facility] Potassium, Whole Blood 4.3 3.6 - 4.9 mmol/L LAB HEMATOLOGY METHOD 06/18/2025 5:59 AM EDT [facility] Chloride, Whole Blood 119(H) 97 - 107 mmol/L LAB HEMATOLOGY METHOD 06/18/2025 5:59 AM EDT [facility] Glucose, Whole Blood 138(H) 74 - 99 mg/dL LAB HEMATOLOGY METHOD 06/18/2025 5:59 AM EDT [facility] Ionized Calcium, Whole Blood 5.1 4.6 - 5.1 mg/dL LAB HEMATOLOGY METHOD 06/18/2025 5:59 AM EDT [facility] Lactate, Arterial, Whole Blood 1.6 0.5 - 1.6 mmol/L LAB HEMATOLOGY METHOD 06/18/2025 5:59 AM EDT [facility] Blood Arterial blood specimen / Unknown Arterial Puncture / Unknown 06/18/2025 5:47 AM EDT 06/18/2025 5:57 AM EDT Michelle Iniguez APRN LAB BLOOD ORDERABLES Final R esult [facility] [address] [place] [address] * (ABNORMAL) POCT glucose meter (06/18/2025 12:10 [...] Comment 06/18/2025 12:12 AM EDT [facility] Ornament Stapler ID SchaeferAurea 06/18/2025 12:12 AM EDT [facility] Device ID [id number] 06/18/2025 12:12 AM EDT [facility] Specimen Type POC Arterial 06/18/2025 12:12 AM EDT [facility] Blood Arterial blood specimen / Unknown 06/18/2025 12:10 AM EDT 06/18/2025 12:12 AM EDT us Dyllan Paul MD LAB POINT OF CARE TE ST DOCKED DEVICE UNSOLICITED RESULTS Final Result Performing Organization Address City/[facility]/ZIP Co de Phone Number [facility] [address] [place] [address] * Phosphorus (06/17/2025 11:58 PM EDT) Phosphorus, Plasma 3.1 2.5 - 4.5 mg/dL 06/18/2025 12:32 AM EDT [facility] Blood Venous blood specimen / Unknown Venipuncture / Unknown 06/17/2025 11:58 PM EDT 06/18/2025 12:05 AM EDT us Dyllan Paul MD LAB BLOOD ORDERABLES Final Re sult Performing Organization Address [facility]/ZIP Co de Phone Number [facility] [address] [place] [address] * Magnesium (06/17/2025 11:58 PM EDT) Magnesium, Plasma 2.3 1.9 - 2.4 mg/dL 06/18/2025 12:32 AM EDT [facility] Blood Venous blood specimen / Unknown Venipuncture / Unknown 06/17/2025 11:58 PM EDT 06/18/2025 12:05 AM EDT us Dyllan Paul MD LAB BLOOD ORDERABLES Final Re sult Performing Organization Address City/[facility]/ZIP Co de Phone Number [facility] [address] [place] [address] * (ABNORMAL) Basic metabolic panel (06/17/2025 11:58 PM EDT) Glucose, Plasma 160(H) 74 - 99 mg/dL 06/18/2025 12:32 AM EDT [facility] BUN, Plasma 52(H) 8 - 23 mg/dL 06/18/2025 12:32 AM EDT [facility] Creatinine, Plasma 1.23(H) 0.70 - 1.20 mg/dL 06/18/2025 12:32 AM EDT [facility] BUN/Creatinine Ratio 42 06/18/2025 12:32 AM EDT [facility] Sodium, Plasma 151(H) 136 - 145 mmol/L 06/18/2025 12:32 AM EDT [facility] Potassium, Plasma 3.8 3.6 - 4.9 mmol/L 06/18/2025 12:32 AM EDT [facility] Chloride, Plasma 118(H) 97 - 107 mmol/L 06/18/2025 12:32 AM EDT [facility] CO2, Plasma 24 22 - 29 mmol/L 06/18/2025 12:32 AM EDT [facility] Anion Gap 9 6 - 16 mmol/L 06/18/2025 12:32 AM EDT [facility] Total Calcium, Plasma 9.0 8.9 - 10.2 mg/dL 06/18/2025 12:32 AM EDT [facility] eGFRcr 63.2 mL/min/1.7 3m*2 06/18/2025 12:32 AM EDT [facility] Comment:Reported eGFRcr in m L/min/1.73m2 is based the CKD-EPI 2020 equation that does not use a race coefficient. Blood Venous blood specimen / Unknown Venipuncture / Unknown 06/17/2025 11:58 PM EDT 06/18/2025 12:05 AM EDT us Dyllan Paul MD LAB BLOOD ORDERABLES Final Re sult [facility] [address] [place] [address] * (ABNORMAL) Hemogram (CBC) (06/17/2025 11:58 PM EDT) WBC Count 12.86(H) 3.70 - 10.30 10*3/uL LAB HEMATOLOGY METHOD 06/18/2025 12:15 AM EDT [facility] RBC Count 3.74(L) 4.60 - 6.10 10*6/uL LAB HEMATOLOGY METHOD 06/18/2025 12:15 AM EDT [facility] HGB 12.0(L) 13.7 - 17.5 g/dL LAB HEMATOLOGY METHOD 06/18/2025 12:15 AM EDT [facility] HCT 35.2(L) 40.0 - 51.0 % LAB HEMATOLOGY METHOD 06/18/2025 12:15 AM EDT [facility] Platelet Count 93(L) 155 - 369 10*3/uL LAB HEMATOLOGY METHOD 06/18/2025 12:15 AM EDT [facility] MCV 94 79 - 98 fL LAB HEMATOLOGY METHOD 06/18/2025 12:15 AM EDT [facility] MCH 32.1(H) 26.0 - 32.0 pg LAB HEMATOLOGY METHOD 06/18/2025 12:15 AM EDT [facility] MCHC 34.1 30.7 - 35.5 g/dL LAB HEMATOLOGY METHOD 06/18/2025 12:15 AM EDT [facility] RDW 16.2(H) 11.5 - 14.5 % LAB HEMATOLOGY METHOD 06/18/2025 12:15 AM EDT [facility] MPV 12.6(H) 8.8 - 12.5 fL LAB HEMATOLOGY METHOD 06/18/2025 12:15 AM EDT [facility] nRBC 0.2(H) <=0.0 per 100 WBCs LAB HEMATOLOGY METHOD 06/18/2025 12:15 AM EDT [facility] Blood Venous blood specimen / Unknown Venipuncture / Unknown 06/17/2025 11:58 PM EDT 06/18/2025 12:05 AM EDT us Dyllan Paul MD LAB BLOOD ORDERABLES Final Re sult [facility] [address] [place] [address] * (ABNORMAL) Ammonia, Plasma (06/17/2025 11:58 PM EDT) Ammonia 55(H) 11 - 51 umol/L 06/18/2025 12:29 AM EDT [facility] Blood Venous blood specimen / Unknown Venipuncture / Unknown 06/17/2025 11:58 PM EDT 06/18/2025 12:04 AM EDT Michelle Iniguez APRN LAB BLOOD ORDERABLES Final R esult Performing Organization Address City/[facility]/ZIP Co de Phone Number [facility] [address] [place] [address] * (ABNORMAL) POCT glucose meter (06/17/2025 5:41 [...] for testing. Comment 06/17/2025 5:43 PM EDT [facility] Ornament Stapler ID Lesia Booth 5:43 PM EDT [facility] Device ID [id number] 06/17/2025 5:43 PM EDT [facility] Specimen Type POC Capillary 06/17/2025 5:43 PM EDT [facility] Blood Capillary blood specimen / Unknown 06/17/2025 5:41 PM EDT 06/17/2025 5:43 PM EDT Dyllan Paul MD LAB POINT OF CARE TE ST DOCKED DEVICE UNSOLICITED RESULTS Final Result Performing Organization Address City/[facility]/ZIP Co de Phone Number [facility] [address] [place] [address] * (ABNORMAL) Blood gas panel, arterial (06/17/2025 3:55 PM EDT) pH, Arterial 7.45(H) 7.31 - 7.42 LAB HEMATOLOGY METHOD 06/17/2025 4:06 PM EDT [facility] pCO2, Arterial 37 32 - 45 mmHg LAB HEMATOLOGY METHOD 06/17/2025 4:06 PM EDT [facility] pO2, Arterial 82 >70 mmHg LAB HEMATOLOGY METHOD 06/17/2025 4:06 PM EDT [facility] SO2, Measured, Arterial 97 94 - 98 % LAB HEMATOLOGY METHOD 06/17/2025 4:06 PM EDT [facility] Base Excess, Arterial 1.7 -2.0 - 3.0 mmol/L LAB HEMATOLOGY METHOD 06/17/2025 4:06 PM EDT [facility] Bicarbonate, Calculated, Arterial 26 22 - 26 mmol/L LAB HEMATOLOGY METHOD 06/17/2025 4:06 PM EDT [facility] Hematocrit, Whole Blood 38.7(L) 40.0 - 51.0 % LAB HEMATOLOGY METHOD 06/17/2025 4:06 PM EDT [facility] Sodium, Whole Blood 148(H) 136 - 145 mmol/L LAB HEMATOLOGY METHOD 06/17/2025 4:06 PM EDT [facility] Potassium, Whole Blood 4.3 3.6 - 4.9 mmol/L LAB HEMATOLOGY METHOD 06/17/2025 4:06 PM EDT [facility] Chloride, Whole Blood 114(H) 97 - 107 mmol/L LAB HEMATOLOGY METHOD 06/17/2025 4:06 PM EDT [facility] Glucose, Whole Blood 177(H) 74 - 99 mg/dL LAB HEMATOLOGY METHOD 06/17/2025 4:06 PM EDT [facility] Ionized Calcium, Whole Blood 4.9 4.6 - 5.1 mg/dL LAB HEMATOLOGY METHOD 06/17/2025 4:06 PM EDT [facility] Lactate, Arterial, Whole Blood 1.9(H) 0.5 - 1.6 mmol/L LAB HEMATOLOGY METHOD 06/17/2025 4:06 PM EDT [facility] Blood Arterial blood specimen / Unknown Arterial Puncture / Unknown 06/17/2025 3:55 PM EDT 06/17/2025 4:02 PM EDT us Michelle Iniguez APRN LAB BLOOD ORDERABLES Final R esult [facility] [address] [place] [address] * CT Head wo IV Contrast (06/17/2025 [...] LAB HEMATOLOGY METHOD 06/17/2025 11:56 AM EDT [facility] pCO2, Arterial 37 32 - 45 mmHg LAB HEMATOLOGY METHOD 06/17/2025 11:56 AM EDT [facility] pO2, Arterial 80 >70 mmHg LAB HEMATOLOGY METHOD 06/17/2025 11:56 AM EDT [facility] SO2, Measured, Arterial 97 94 - 98 % LAB HEMATOLOGY METHOD 06/17/2025 11:56 AM EDT [facility] Base Excess, Arterial 3.3(H) -2.0 - 3.0 mmol/L LAB HEMATOLOGY METHOD 06/17/2025 11:56 AM EDT [facility] Bicarbonate, Calculated, Arterial 27(H) 22 - 26 mmol/L LAB HEMATOLOGY METHOD 06/17/2025 11:56 AM EDT [facility] Hematocrit, Whole Blood 35.9(L) 40.0 - 51.0 % LAB HEMATOLOGY METHOD 06/17/2025 11:56 AM EDT [facility] Sodium, Whole Blood 147(H) 136 - 145 mmol/L LAB HEMATOLOGY METHOD 06/17/2025 11:56 AM EDT [facility] Potassium, Whole Blood 3.6 3.6 - 4.9 mmol/L LAB HEMATOLOGY METHOD 06/17/2025 11:56 AM EDT [facility] Chloride, Whole Blood 112(H) 97 - 107 mmol/L LAB HEMATOLOGY METHOD 06/17/2025 11:56 AM EDT [facility] Glucose, Whole Blood 153(H) 74 - 99 mg/dL LAB HEMATOLOGY METHOD 06/17/2025 11:56 AM EDT [facility] Ionized Calcium, Whole Blood 4.9 4.6 - 5.1 mg/dL LAB HEMATOLOGY METHOD 06/17/2025 11:56 AM EDT [facility] Lactate, Arterial, Whole Blood 1.4 0.5 - 1.6 mmol/L LAB HEMATOLOGY METHOD 06/17/2025 11:56 AM EDT [facility] Blood Arterial blood specimen / Unknown Arterial Puncture / Unknown 06/17/2025 11:44 AM EDT 06/17/2025 11:54 AM EDT us Michelle Iniguez APRN LAB BLOOD ORDERABLES Final R esult [facility] [address] [place] [address] * (ABNORMAL) POCT glucose meter (06/17/2025 11:42 AM EDT) POCT Glucose 154(H) 74 - 99 mg/dL 06/17/2025 11:44 AM EDT [facility] Comment:Accuracy of a [...] Comment 06/17/2025 11:44 AM EDT [facility] Ornament Stapler ID Lesia Booth 11:44 AM EDT [facility] Device ID [id number] 06/17/2025 11:44 AM EDT [facility] Specimen Type POC Arterial 06/17/2025 11:44 AM EDT [facility] Blood Arterial blood specimen / Unknown 06/17/2025 11:42 AM EDT 06/17/2025 11:44 AM EDT us Dyllan Palu MD LAB POINT OF CARE TE ST DOCKED DEVICE UNSOLICITED RESULTS Final Result [facility] [address] [place] [address] * (ABNORMAL) Ammonia, Plasma (06/17/2025 8:55 AM EDT) Ammonia 89(H) 11 - 51 umol/L 06/17/2025 9:26 AM EDT [facility] Blood Venous blood specimen / Unknown Venipuncture / Unknown 06/17/2025 8:55 AM EDT 06/17/2025 9:01 AM EDT us Lillian RODRIGUEZ LAB BLOOD ORDERABLES Final Result Performing Organization Address City/[facility]/ZIP Co de Phone Number [facility] [address] [place] [address] * (ABNORMAL) Blood gas panel, arterial (06/17/2025 8:55 AM EDT) pH, Arterial 7.47(H) 7.31 - 7.42 LAB HEMATOLOGY METHOD 06/17/2025 9:05 AM EDT [facility] pCO2, Arterial 37 32 - 45 mmHg LAB HEMATOLOGY METHOD 06/17/2025 9:05 AM EDT [facility] pO2, Arterial 89 >70 mmHg LAB HEMATOLOGY METHOD 06/17/2025 9:05 AM EDT [facility] SO2, Measured, Arterial 98 94 - 98 % LAB HEMATOLOGY METHOD 06/17/2025 9:05 AM EDT [facility] Base Excess, Arterial 3.5(H) -2.0 - 3.0 mmol/L LAB HEMATOLOGY METHOD 06/17/2025 9:05 AM EDT [facility] Bicarbonate, Calculated, Arterial 27(H) 22 - 26 mmol/L LAB HEMATOLOGY METHOD 06/17/2025 9:05 AM EDT [facility] Hematocrit, Whole Blood 37.1(L) 40.0 - 51.0 % LAB HEMATOLOGY METHOD 06/17/2025 9:05 AM EDT [facility] Sodium, Whole Blood 145 136 - 145 mmol/L LAB HEMATOLOGY METHOD 06/17/2025 9:05 AM EDT [facility] Potassium, Whole Blood 3.6 3.6 - 4.9 mmol/L LAB HEMATOLOGY METHOD 06/17/2025 9:05 AM EDT [facility] Chloride, Whole Blood 114(H) 97 - 107 mmol/L LAB HEMATOLOGY METHOD 06/17/2025 9:05 AM EDT [facility] Glucose, Whole Blood 154(H) 74 - 99 mg/dL LAB HEMATOLOGY METHOD 06/17/2025 9:05 AM EDT [facility] Ionized Calcium, Whole Blood 4.9 4.6 - 5.1 mg/dL LAB HEMATOLOGY METHOD 06/17/2025 9:05 AM EDT [facility] Lactate, Arterial, Whole Blood 1.4 0.5 - 1.6 mmol/L LAB HEMATOLOGY METHOD 06/17/2025 9:05 AM EDT [facility] Blood Arterial blood specimen / Unknown Arterial Puncture / Unknown 06/17/2025 8:55 AM EDT 06/17/2025 9:02 AM EDT Michelle Iniguez APRN LAB BLOOD ORDERABLES Final R esult Performing Organization Address City/State/[facility] Co de Phone Number [facility] [address] [place] [address] * [place] [facility], E/M 30-74 MINUTES (06/17/2025 8:36 [...] MD on 06/17/2025 9:45 AM Corry Doss COMPUTER SYSTEMS AUDITOR, DNP IMG XR PROCEDURES Fi nal Result * (ABNORMAL) POCT glucose meter (06/17/2025 5:28 AM EDT) [facility] POCT Glucose 163(H) 74 - 99 mg/dL 06/17/2025 5:30 AM EDT [facility] Comment:Accuracy of a [...] Comment 06/17/2025 5:30 AM EDT [facility] Ornament Stapler ID Nir Murcia 5:30 AM EDT [facility] Device ID [id number] 06/17/2025 5:30 AM EDT [facility] Specimen Type POC Capillary 06/17/2025 5:30 AM EDT [facility] Blood Capillary blood specimen / Unknown 06/17/2025 5:28 AM EDT 06/17/2025 5:30 AM EDT Dyllan Paul MD LAB POINT OF CARE TE ST DOCKED DEVICE UNSOLICITED RESULTS Final Result [facility] [address] [place] [id number] * (ABNORMAL) Ammonia, Plasma (06/17/2025 3:30 AM EDT) [facility] Ammonia 83(H) 11 - 51 umol/L 06/17/2025 4:04 AM EDT [facility] Comment:Improper specimen marquez ndling may falsely increase results. Blood Venous blood specimen / Unknown Venipuncture / Unknown 06/17/2025 3:30 AM EDT 06/17/2025 3:34 AM EDT us Michelle Iniguez APRN LAB BLOOD ORDERABLES Final R esult [facility] [address] [place] [address] * (ABNORMAL) Blood gas panel, arterial (06/17/2025 3:30 AM EDT) pH, Arterial 7.46(H) 7.31 - 7.42 LAB HEMATOLOGY METHOD 06/17/2025 3:36 AM EDT [facility] pCO2, Arterial 38 32 - 45 mmHg LAB HEMATOLOGY METHOD 06/17/2025 3:36 AM EDT [facility] pO2, Arterial 123 >70 mmHg LAB HEMATOLOGY METHOD 06/17/2025 3:36 AM EDT [facility] SO2, Measured, Arterial 100(H) 94 - 98 % LAB HEMATOLOGY METHOD 06/17/2025 3:36 AM EDT [facility] Base Excess, Arterial 2.9 -2.0 - 3.0 mmol/L LAB HEMATOLOGY METHOD 06/17/2025 3:36 AM EDT [facility] Bicarbonate, Calculated, Arterial 27(H) 22 - 26 mmol/L LAB HEMATOLOGY METHOD 06/17/2025 3:36 AM EDT [facility] Hematocrit, Whole Blood 36.8(L) 40.0 - 51.0 % LAB HEMATOLOGY METHOD 06/17/2025 3:36 AM EDT [facility] Sodium, Whole Blood 147(H) 136 - 145 mmol/L LAB HEMATOLOGY METHOD 06/17/2025 3:36 AM EDT [facility] Potassium, Whole Blood 3.5(L) 3.6 - 4.9 mmol/L LAB HEMATOLOGY METHOD 06/17/2025 3:36 AM EDT [facility] Chloride, Whole Blood 111(H) 97 - 107 mmol/L LAB HEMATOLOGY METHOD 06/17/2025 3:36 AM EDT [facility] Glucose, Whole Blood 187(H) 74 - 99 mg/dL LAB HEMATOLOGY METHOD 06/17/2025 3:36 AM EDT [facility] Ionized Calcium, Whole Blood 4.9 4.6 - 5.1 mg/dL LAB HEMATOLOGY METHOD 06/17/2025 3:36 AM EDT [facility] Lactate, Arterial, Whole Blood 1.7(H) 0.5 - 1.6 mmol/L LAB HEMATOLOGY METHOD 06/17/2025 3:36 AM EDT [facility] Blood Arterial blood specimen / Unknown Arterial Puncture / Unknown 06/17/2025 3:30 AM EDT 06/17/2025 3:34 AM EDT us Michelle Iniguez APRN LAB BLOOD ORDERABLES Final R esult Performing Organization Address City/[facility]/ZIP Co de Phone Number [facility] [address] [place] [address] * (ABNORMAL) Free T4, Plasma (06/17/2025 12:24 AM EDT) Free T4, Plasma 0.7(L) 0.8 - 1.7 ng/dL 06/17/2025 8:59 AM EDT [facility] Blood Venous blood specimen / Unknown Venipuncture / Unknown 06/17/2025 12:24 AM EDT 06/17/2025 12:36 AM EDT us Lillian RODRIGUEZ LAB BLOOD ORDERABLES Final Result Performing Organization Address [facility]/ZIP Co de Phone Number [facility] [address] [place] [address] * Thyroid Stimulating Hormone, Plasma (06/17/2025 12:24 AM EDT) Thyroid Stimulating Hormone, Plasma 1.19 0.40 - 4.20 uIU/mL 06/17/2025 8:59 AM EDT [facility] Blood Venous blood specimen / Unknown Venipuncture / Unknown 06/17/2025 12:24 AM EDT 06/17/2025 12:36 AM EDT us Lillian RODRIGUEZ LAB BLOOD ORDERABLES Final Result Performing Organization Address City/[facility]/ZIP Co de Phone Number [facility] [address] [place] [address] * (ABNORMAL) Blood gas panel, arterial (06/17/2025 12:24 AM EDT) pH, Arterial 7.46(H) 7.31 - 7.42 LAB HEMATOLOGY METHOD 06/17/2025 12:41 AM EDT [facility] pCO2, Arterial 39 32 - 45 mmHg LAB HEMATOLOGY METHOD 06/17/2025 12:41 AM EDT [facility] pO2, Arterial 90 >70 mmHg LAB HEMATOLOGY METHOD 06/17/2025 12:41 AM EDT [facility] SO2, Measured, Arterial 98 94 - 98 % LAB HEMATOLOGY METHOD 06/17/2025 12:41 AM EDT [facility] Base Excess, Arterial 3.3(H) -2.0 - 3.0 mmol/L LAB HEMATOLOGY METHOD 06/17/2025 12:41 AM EDT [facility] Bicarbonate, Calculated, Arterial 27(H) 22 - 26 mmol/L LAB HEMATOLOGY METHOD 06/17/2025 12:41 AM EDT [facility] Hematocrit, Whole Blood 36.5(L) 40.0 - 51.0 % LAB HEMATOLOGY METHOD 06/17/2025 12:41 AM EDT [facility] Sodium, Whole Blood 148(H) 136 - 145 mmol/L LAB HEMATOLOGY METHOD 06/17/2025 12:41 AM EDT [facility] Potassium, Whole Blood 3.7 3.6 - 4.9 mmol/L LAB HEMATOLOGY METHOD 06/17/2025 12:41 AM EDT [facility] Chloride, Whole Blood 112(H) 97 - 107 mmol/L LAB HEMATOLOGY METHOD 06/17/2025 12:41 AM EDT [facility] Glucose, Whole Blood 159(H) 74 - 99 mg/dL LAB HEMATOLOGY METHOD 06/17/2025 12:41 AM EDT [facility] Ionized Calcium, Whole Blood 4.8 4.6 - 5.1 mg/dL LAB HEMATOLOGY METHOD 06/17/2025 12:41 AM EDT [facility] Lactate, Arterial, Whole Blood 1.7(H) 0.5 - 1.6 mmol/L LAB HEMATOLOGY METHOD 06/17/2025 12:41 AM EDT [facility] Blood Arterial blood specimen / Unknown Arterial Puncture / Unknown 06/17/2025 12:24 AM EDT 06/17/2025 12:34 AM EDT Michelle Iniguez APRN LAB BLOOD ORDERABLES Final R esult Performing Organization Address City/[facility]/ZIP Co de Phone Number [facility] [address] [place] [address] * Phosphorus (06/17/2025 12:24 AM EDT) Phosphorus, Plasma 2.7 2.5 - 4.5 mg/dL 06/17/2025 1:04 AM EDT [facility] Blood Venous blood specimen / Unknown Venipuncture / Unknown 06/17/2025 12:24 AM EDT 06/17/2025 12:36 AM EDT Dyllan Paul MD LAB BLOOD ORDERABLES Final Re sult Performing Organization Address [facility]/ZIP Co de Phone Number [facility] [address] [place] [address] * Magnesium (06/17/2025 12:24 AM EDT) Magnesium, Plasma 2.3 1.9 - 2.4 mg/dL 06/17/2025 1:04 AM EDT [facility] Blood Venous blood specimen / Unknown Venipuncture / Unknown 06/17/2025 12:24 AM EDT 06/17/2025 12:36 AM EDT Dyllan Paul MD LAB BLOOD ORDERABLES Final Re sult Performing Organization Address City/[facility]/ZIP Co de Phone Number [facility] [address] [place] [address] * (ABNORMAL) Basic metabolic panel (06/17/2025 12:24 AM EDT) Glucose, Plasma 163(H) 74 - 99 mg/dL 06/17/2025 1:04 AM EDT [facility] BUN, Plasma 51(H) 8 - 23 mg/dL 06/17/2025 1:04 AM EDT [facility] Creatinine, Plasma 1.37(H) 0.70 - 1.20 mg/dL 06/17/2025 1:04 AM EDT [facility] BUN/Creatinine Ratio 37 06/17/2025 1:04 AM EDT [facility] Sodium, Plasma 146(H) 136 - 145 mmol/L 06/17/2025 1:04 AM EDT [facility] Potassium, Plasma 4.1 3.6 - 4.9 mmol/L 06/17/2025 1:04 AM EDT [facility] Chloride, Plasma 112(H) 97 - 107 mmol/L 06/17/2025 1:04 AM EDT [facility] CO2, Plasma 24 22 - 29 mmol/L 06/17/2025 1:04 AM EDT [facility] Anion Gap 10 6 - 16 mmol/L 06/17/2025 1:04 AM EDT [facility] Total Calcium, Plasma 8.7(L) 8.9 - 10.2 mg/dL 06/17/2025 1:04 AM EDT [facility] eGFRcr 55.5 mL/min/1.7 3m*2 06/17/2025 1:04 AM EDT [facility] Comment:Reported eGFRcr in m L/min/1.73m2 is based the CKD-EPI 2020 equation that does not use a race coefficient. Blood Venous blood specimen / Unknown Venipuncture / Unknown 06/17/2025 12:24 AM EDT 06/17/2025 12:36 AM EDT us Dyllan Paul MD LAB BLOOD ORDERABLES Final Re sult [facility] [address] [place] [address] * (ABNORMAL) Hemogram (CBC) (06/17/2025 12:24 AM EDT) WBC Count 13.51(H) 3.70 - 10.30 10*3/uL LAB HEMATOLOGY METHOD 06/17/2025 12:45 AM EDT [facility] RBC Count 3.70(L) 4.60 - 6.10 10*6/uL LAB HEMATOLOGY METHOD 06/17/2025 12:45 AM EDT [facility] HGB 12.1(L) 13.7 - 17.5 g/dL LAB HEMATOLOGY METHOD 06/17/2025 12:45 AM EDT [facility] HCT 34.3(L) 40.0 - 51.0 % LAB HEMATOLOGY METHOD 06/17/2025 12:45 AM EDT [facility] Platelet Count 99(L) 155 - 369 10*3/uL LAB HEMATOLOGY METHOD 06/17/2025 12:45 AM EDT [facility] MCV 93 79 - 98 fL LAB HEMATOLOGY METHOD 06/17/2025 12:45 AM EDT [facility] MCH 32.7(H) 26.0 - 32.0 pg LAB HEMATOLOGY METHOD 06/17/2025 12:45 AM EDT [facility] MCHC 35.3 30.7 - 35.5 g/dL LAB HEMATOLOGY METHOD 06/17/2025 12:45 AM EDT [facility] RDW 15.8(H) 11.5 - 14.5 % LAB HEMATOLOGY METHOD 06/17/2025 12:45 AM EDT [facility] MPV 12.8(H) 8.8 - 12.5 fL LAB HEMATOLOGY METHOD 06/17/2025 12:45 AM EDT [facility] nRBC 0.1(H) <=0.0 per 100 WBCs LAB HEMATOLOGY METHOD 06/17/2025 12:45 AM EDT [facility] Blood Venous blood specimen / Unknown Venipuncture / Unknown 06/17/2025 12:24 AM EDT 06/17/2025 12:38 AM EDT us Dyllan Paul MD LAB BLOOD ORDERABLES Final Re sult [facility] [address] [place] [address] * (ABNORMAL) POCT glucose meter (06/17/2025 12:15 [...] Comment 06/17/2025 12:17 AM EDT [facility] Ornament Stapler ID Nir Murcia 12:17 AM EDT [facility] Device ID [id number] 06/17/2025 12:17 AM EDT [facility] Specimen Type POC Capillary 06/17/2025 12:17 AM EDT [facility] Blood Capillary blood specimen / Unknown 06/17/2025 12:15 AM EDT 06/17/2025 12:17 AM EDT Dyllan Paul MD LAB POINT OF CARE TE ST DOCKED DEVICE UNSOLICITED RESULTS Final Result Performing Organization Address City/State/[facility] Co de Phone Number [facility] [address] [place] [address] * (ABNORMAL) Blood gas panel, arterial (06/16/2025 8:32 PM EDT) pH, Arterial 7.48(H) 7.31 - 7.42 LAB HEMATOLOGY METHOD 06/16/2025 8:39 PM EDT [facility] pCO2, Arterial 37 32 - 45 mmHg LAB HEMATOLOGY METHOD 06/16/2025 8:39 PM EDT [facility] pO2, Arterial 99 >70 mmHg LAB HEMATOLOGY METHOD 06/16/2025 8:39 PM EDT [facility] SO2, Measured, Arterial 99(H) 94 - 98 % LAB HEMATOLOGY METHOD 06/16/2025 8:39 PM EDT [facility] Base Excess, Arterial 4.0(H) -2.0 - 3.0 mmol/L LAB HEMATOLOGY METHOD 06/16/2025 8:39 PM EDT [facility] Bicarbonate, Calculated, Arterial 28(H) 22 - 26 mmol/L LAB HEMATOLOGY METHOD 06/16/2025 8:39 PM EDT [facility] Hematocrit, Whole Blood 36.1(L) 40.0 - 51.0 % LAB HEMATOLOGY METHOD 06/16/2025 8:39 PM EDT [facility] Sodium, Whole Blood 145 136 - 145 mmol/L LAB HEMATOLOGY METHOD 06/16/2025 8:39 PM EDT [facility] Potassium, Whole Blood 3.4(L) 3.6 - 4.9 mmol/L LAB HEMATOLOGY METHOD 06/16/2025 8:39 PM EDT [facility] Chloride, Whole Blood 110(H) 97 - 107 mmol/L LAB HEMATOLOGY METHOD 06/16/2025 8:39 PM EDT [facility] Glucose, Whole Blood 171(H) 74 - 99 mg/dL LAB HEMATOLOGY METHOD 06/16/2025 8:39 PM EDT [facility] Ionized Calcium, Whole Blood 4.7 4.6 - 5.1 mg/dL LAB HEMATOLOGY METHOD 06/16/2025 8:39 PM EDT [facility] Lactate, Arterial, Whole Blood 1.5 0.5 - 1.6 mmol/L LAB HEMATOLOGY METHOD 06/16/2025 8:39 PM EDT [facility] Blood Arterial blood specimen / Unknown Arterial Puncture / Unknown 06/16/2025 8:32 PM EDT 06/16/2025 8:36 PM EDT Michelle Iniguez APRN LAB BLOOD ORDERABLES Final R esult [facility] [address] [place] [address] * (ABNORMAL) POCT glucose meter (06/16/2025 5:31 PM EDT) [facility] POCT Glucose 181(H) 74 - 99 mg/dL [...] Comment 06/16/2025 5:33 PM EDT [facility] Ornament Stapler ID Agatha Dasilva 06/16/2025 5:33 PM EDT [facility] Device ID [id number] 06/16/2025 5:33 PM EDT [facility] Specimen Type POC Arterial 06/16/2025 5:33 PM EDT [facility] Blood Arterial blood specimen / Unknown 06/16/2025 5:31 PM EDT 06/16/2025 5:33 PM EDT Dyllan Paul MD LAB POINT OF CARE TE ST DOCKED DEVICE UNSOLICITED RESULTS Final Result Performing Organization Address City/[facility]/ZIP Co de Phone Number [facility] [address] [place] [address] * (ABNORMAL) Ammonia, Plasma (06/16/2025 5:21 PM EDT) Ammonia 135(H) 11 - 51 umol/L 06/16/2025 6:06 PM EDT [facility] Blood Venous blood specimen / Unknown Venipuncture / Unknown 06/16/2025 5:21 PM EDT 06/16/2025 5:30 PM EDT us Michelle Iniguez APRN LAB BLOOD ORDERABLES Final R esult [facility] [address] [place] [address] * (ABNORMAL) Comprehensive metabolic panel (06/16/2025 5:21 PM EDT) Glucose, Plasma 189(H) 74 - 99 mg/dL 06/16/2025 6:13 PM EDT [facility] BUN, Plasma 53(H) 8 - 23 mg/dL 06/16/2025 6:13 PM EDT [facility] Creatinine, Plasma 1.39(H) 0.70 - 1.20 mg/dL 06/16/2025 6:13 PM EDT [facility] BUN/Creatinine Ratio 38 06/16/2025 6:13 PM EDT [facility] Sodium, Plasma 145 136 - 145 mmol/L 06/16/2025 6:13 PM EDT [facility] Potassium, Plasma 3.6 3.6 - 4.9 mmol/L 06/16/2025 6:13 PM EDT [facility] Chloride, Plasma 111(H) 97 - 107 mmol/L 06/16/2025 6:13 PM EDT [facility] CO2, Plasma 24 22 - 29 mmol/L 06/16/2025 6:13 PM EDT [facility] Anion Gap 10 6 - 16 mmol/L 06/16/2025 6:13 PM EDT [facility] Total Calcium, Plasma 8.5(L) 8.9 - 10.2 mg/dL 06/16/2025 6:13 PM EDT [facility] Total Protein 4.7(L) 6.3 - 7.9 g/dL 06/16/2025 6:13 PM EDT [facility] Albumin, Plasma 2.7(L) 3.5 - 5.2 g/dL 06/16/2025 6:13 PM EDT [facility] AST, Plasma 48 10 - 50 U/L 06/16/2025 6:13 PM EDT [facility] ALT, Plasma 24 10 - 50 U/L 06/16/2025 6:13 PM EDT [facility] Alkaline Phosphatase, Plasma 159(H) 40 - 115 U/L 06/16/2025 6:13 PM EDT [facility] Total Bilirubin, Plasma 2.8(H) 0.2 - 1.1 mg/dL 06/16/2025 6:13 PM EDT [facility] eGFRcr 54.5 mL/min/1.7 3m*2 06/16/2025 6:13 PM EDT [facility] Comment:Reported eGFRcr in m L/min/1.73m2 is based the CKD-EPI 2020 equation that does not use a race coefficient. Blood Venous blood specimen / Unknown Venipuncture / Unknown 06/16/2025 5:21 PM EDT 06/16/2025 5:41 PM EDT us Michelle Iniguez COMPUTER SYSTEMS AUDITOR LAB BLOOD ORDERABLES Final R esult [facility] [address] [place] [address] * (ABNORMAL) Blood gas panel, arterial (06/16/2025 5:20 PM EDT) pH, Arterial 7.47(H) 7.31 - 7.42 LAB HEMATOLOGY METHOD 06/16/2025 5:45 PM EDT [facility] pCO2, Arterial 37 32 - 45 mmHg LAB HEMATOLOGY METHOD 06/16/2025 5:45 PM EDT [facility] pO2, Arterial 66(L) >70 mmHg LAB HEMATOLOGY METHOD 06/16/2025 5:45 PM EDT [facility] SO2, Measured, Arterial 94 94 - 98 % LAB HEMATOLOGY METHOD 06/16/2025 5:45 PM EDT [facility] Base Excess, Arterial 3.2(H) -2.0 - 3.0 mmol/L LAB HEMATOLOGY METHOD 06/16/2025 5:45 PM EDT [facility] Bicarbonate, Calculated, Arterial 27(H) 22 - 26 mmol/L LAB HEMATOLOGY METHOD 06/16/2025 5:45 PM EDT [facility] Hematocrit, Whole Blood 36.2(L) 40.0 - 51.0 % LAB HEMATOLOGY METHOD 06/16/2025 5:45 PM EDT [facility] Sodium, Whole Blood 142 136 - 145 mmol/L LAB HEMATOLOGY METHOD 06/16/2025 5:45 PM EDT [facility] Potassium, Whole Blood 3.4(L) 3.6 - 4.9 mmol/L LAB HEMATOLOGY METHOD 06/16/2025 5:45 PM EDT [facility] Chloride, Whole Blood 111(H) 97 - 107 mmol/L LAB HEMATOLOGY METHOD 06/16/2025 5:45 PM EDT [facility] Glucose, Whole Blood 185(H) 74 - 99 mg/dL LAB HEMATOLOGY METHOD 06/16/2025 5:45 PM EDT [facility] Ionized Calcium, Whole Blood 4.8 4.6 - 5.1 mg/dL LAB HEMATOLOGY METHOD 06/16/2025 5:45 PM EDT [facility] Lactate, Arterial, Whole Blood 1.8(H) 0.5 - 1.6 mmol/L LAB HEMATOLOGY METHOD 06/16/2025 5:45 PM EDT [facility] Blood Arterial blood specimen / Unknown Arterial Puncture / Unknown 06/16/2025 5:20 PM EDT 06/16/2025 5:43 PM EDT us Michelle Iniguez APRN LAB BLOOD ORDERABLES Final R esult Performing Organization Address City/[facility]/ZIP Co de Phone Number [facility] [address] [place] [address] * (ABNORMAL) POCT glucose meter (06/16/2025 11:40 [...] Comment 06/16/2025 11:42 AM EDT [facility] Ornament Stapler ID Agatha Dasilva 06/16/2025 11:42 AM EDT [facility] Device ID [id number] 06/16/2025 11:42 AM EDT [facility] Specimen Type POC Arterial 06/16/2025 11:42 AM EDT [facility] Blood Arterial blood specimen / Unknown 06/16/2025 11:40 AM EDT 06/16/2025 11:42 AM EDT Dyllan Paul MD LAB POINT OF CARE TE ST DOCKED DEVICE UNSOLICITED RESULTS Final Result Performing Organization Address City/[facility]/ZIP Co de Phone Number [facility] [address] [place] [address] * [place] CRITICAL CARE, E/M 30-74 MINUTES (06/16/2025 10:30 [...] mean PAP 34 mmHg CINTIA ISCV PA [place](ACCEL) 35.0 mmHg CINTIA ISCV PA acc slope [...] is no recent study available for direct [id number] comparison. Left Ventricle Based on the linear [...] is no recent study available for direct [id number] comparison. Raymond Katz APRN CV ECHO PROCEDURES Final Resu lt * (ABNORMAL) POCT glucose meter (06/16/2025 8:09 AM EDT) POCT Glucose 161(H) 74 - 99 mg/dL 06/16/2025 8:11 AM EDT [facility] Comment:Accuracy of a [...] Comment 06/16/2025 8:11 AM EDT [facility] Ornament Stapler ID Agatha Dasilva 06/16/2025 8:11 AM EDT [facility] Device ID [id number] 06/16/2025 8:11 AM EDT [facility] Specimen Type POC Arterial 06/16/2025 8:11 AM EDT [facility] Blood Arterial blood specimen / Unknown 06/16/2025 8:09 AM EDT 06/16/2025 8:11 AM EDT Dyllan Paul MD LAB POINT OF CARE TE ST DOCKED DEVICE UNSOLICITED RESULTS Final Result Performing Organization Address City/State/[facility] Co de Phone Number [facility] [address] [place] [address] * Hemoglobin A1c (06/16/2025 4:24 AM EDT) Hemoglobin A1c 5.4 <5.7 % 06/16/2025 12:01 PM EDT [facility] Blood Venous blood specimen / Unknown Venipuncture / Unknown 06/16/2025 4:24 AM EDT 06/16/2025 4:31 AM EDT Narrative [facility] - 06/16/2025 12:01 PM EDT HA1C Interpretive Data: Diagnosis of Diabetes: Diabetic > or = 6.5% Pre-diabetic 5.7 to 6.4% Non-diabetic < or = 5.6% Glycemic Targets for Type I and Type II Diabetics: Non- Adults <7.0% Adults <6.0% Children and Adolescents <7.5% Source: [place] [employer]. Standards of medical care in diabetes,2017. Diabetes Care.2017:40 (suppl 1):S1-S135. us Lillian A Burchette PA LAB BLOOD ORDERABLES Final Result [facility] [address] [place] [address] * Triglycerides (06/16/2025 4:24 AM EDT) Triglycerides, Plasma 103 <150 mg/dL 06/16/2025 5:02 AM EDT [facility] Comment: Triglyceride Reference Range (age >17 years): Desirable: <150 mg/dL Borderline high: 150 to 199 mg/dL High: 200 to 499 mg/dL Very high: >499 mg/dL Increased risk of pancreatitis: >1000 mg/dL Fasting greater than or equal to 12 hours? No 06/16/2025 5:02 AM EDT [facility] Blood Venous blood specimen / Unknown Venipuncture / Unknown 06/16/2025 4:24 AM EDT 06/16/2025 4:34 AM EDT us Raymond Katz APRN LAB BLOOD ORDERABLES Final Re sult Performing Organization Address City/[facility]/ZIP Co de Phone Number [facility] [address] [place] [address] * (ABNORMAL) Phosphorus (06/16/2025 4:24 AM EDT) Phosphorus, Plasma 1.5(L) 2.5 - 4.5 mg/dL 06/16/2025 5:02 AM EDT [facility] Blood Venous blood specimen / Unknown Venipuncture / Unknown 06/16/2025 4:24 AM EDT 06/16/2025 4:34 AM EDT us Dyllan Paul MD LAB BLOOD ORDERABLES Final Re sult [facility] [address] [place] [address] * Magnesium (06/16/2025 4:24 AM EDT) Magnesium, Plasma 2.4 1.9 - 2.4 mg/dL 06/16/2025 5:02 AM EDT [facility] Blood Venous blood specimen / Unknown Venipuncture / Unknown 06/16/2025 4:24 AM EDT 06/16/2025 4:34 AM EDT us Dyllan Paul MD LAB BLOOD ORDERABLES Final Re sult [facility] [address] [place] [address] * (ABNORMAL) Basic metabolic panel (06/16/2025 4:24 AM EDT) Glucose, Plasma 195(H) 74 - 99 mg/dL 06/16/2025 5:02 AM EDT [facility] BUN, Plasma 56(H) 8 - 23 mg/dL 06/16/2025 5:02 AM EDT [facility] Creatinine, Plasma 1.60(H) 0.70 - 1.20 mg/dL 06/16/2025 5:02 AM EDT [facility] BUN/Creatinine Ratio 35 06/16/2025 5:02 AM EDT [facility] Sodium, Plasma 142 136 - 145 mmol/L 06/16/2025 5:02 AM EDT [facility] Potassium, Plasma 3.1(L) 3.6 - 4.9 mmol/L 06/16/2025 5:02 AM EDT [facility] Chloride, Plasma 108(H) 97 - 107 mmol/L 06/16/2025 5:02 AM EDT [facility] CO2, Plasma 24 22 - 29 mmol/L 06/16/2025 5:02 AM EDT [facility] Anion Gap 10 6 - 16 mmol/L 06/16/2025 5:02 AM EDT [facility] Total Calcium, Plasma 8.5(L) 8.9 - 10.2 mg/dL 06/16/2025 5:02 AM EDT [facility] eGFRcr 46.1 mL/min/1.7 3m*2 06/16/2025 5:02 AM EDT [facility] Comment:Reported eGFRcr in m L/min/1.73m2 is based the CKD-EPI 2021 equation that does not use a race coefficient. Blood Venous blood specimen / Unknown Venipuncture / Unknown 06/16/2025 4:24 AM EDT 06/16/2025 4:34 AM EDT us Dyllan Paul MD LAB BLOOD ORDERABLES Final Re sult [facility] [address] [place] [address] * (ABNORMAL) Hemogram (CBC) (06/16/2025 4:24 AM EDT) WBC Count 12.74(H) 3.70 - 10.30 10*3/uL LAB HEMATOLOGY METHOD 06/16/2025 4:45 AM EDT [facility] RBC Count 3.66(L) 4.60 - 6.10 10*6/uL LAB HEMATOLOGY METHOD 06/16/2025 4:45 AM EDT [facility] HGB 11.8(L) 13.7 - 17.5 g/dL LAB HEMATOLOGY METHOD 06/16/2025 4:45 AM EDT [facility] HCT 34.2(L) 40.0 - 51.0 % LAB HEMATOLOGY METHOD 06/16/2025 4:45 AM EDT [facility] Platelet Count 67(L) 155 - 369 10*3/uL LAB HEMATOLOGY METHOD 06/16/2025 4:45 AM EDT [facility] MCV 93 79 - 98 fL LAB HEMATOLOGY METHOD 06/16/2025 4:45 AM EDT [facility] MCH 32.2(H) 26.0 - 32.0 pg LAB HEMATOLOGY METHOD 06/16/2025 4:45 AM EDT [facility] MCHC 34.5 30.7 - 35.5 g/dL LAB HEMATOLOGY METHOD 06/16/2025 4:45 AM EDT [facility] RDW 15.5(H) 11.5 - 14.5 % LAB HEMATOLOGY METHOD 06/16/2025 4:45 AM EDT [facility] MPV 12.7(H) 8.8 - 12.5 fL LAB HEMATOLOGY METHOD 06/16/2025 4:45 AM EDT [facility] nRBC 0.0 <=0.0 per 100 WBCs LAB HEMATOLOGY METHOD 06/16/2025 4:45 AM EDT [facility] Blood Venous blood specimen / Unknown Venipuncture / Unknown 06/16/2025 4:24 AM EDT 06/16/2025 4:31 AM EDT us Dyllan Paul MD LAB BLOOD ORDERABLES Final Re sult [facility] [address] [place] [address] * XR Chest 1 View (06/16/2025 4:23 [...] signing this report, I, the attending physician, attorquideathat I have personally reviewed the images/data for the aboveexamination(s) and agree with the final edited report. Drafted by Caleb De La Cruz MD on 06/16/2025 8:27 AM Final report signed by Dyllan Swain MD on 06/16/2025 8:36 AM Corry Doss APRN, [facility] IMG XR PROCEDURES Fi nal Result * Streptococcus pneumoniae and Legionella Urinary Antigen (06/15/2025 2:53 PM EDT) Legionella pneumophila serogroup 1 Antigen Result (Urine) Negative Negative 06/16/2025 6:33 AM EDT [facility] Streptococcus pneumoniae Antigen Result (Urine) Negative Negative 06/16/2025 6:33 AM EDT [facility] Urine Urine specimen obtained by clean catch procedure / Unknown Non-blood Collection / Unknown 06/15/2025 2:53 PM EDT 06/15/2025 3:17 PM EDT Corry Doss APRN, DNP LAB MICROBIOLOGY - G ENERAL ORDERABLES Final Result [facility] [address] [place] [address] * Mycoplasma Pneumoniae DNA By PCR (06/15/2025 2:49 PM EDT) Mycoplasma pneumoniae Source aspirate 06/23/2025 9:22 PM EDT [facility] ([facility]) Mycoplasma pneumoniae by PCR Not Detected 06/23/2025 9:22 PM EDT [facility] ([facility]) Aspirate Non-blood Collection / Unknown 06/15/2025 2:49 PM EDT 06/15/2025 3:34 PM EDT Narrative [facility] ([facility]) - 06/23/2025 9:22 PM EDT NOT DETECTED - A negative result does not rule out the presence of PCR inhibitors in the patient specimen or assay specific nucleic acid in concentrations below the level of detection by the assay. INTERPRETIVE INFORMATION: Mycoplasma pneumoniae by PCR This test was developed and its performance characteristics determined by [employer]. It has not been cleared or approved by the [place] Food and Drug Administration. This test was performed in a CLIA certified laboratory and is intended for clinical purposes. Performed By: [facility] [address] [place] [address] Production Honing Machine Operator: Sotero Banuelos MD, PhD CLIA Number: [id number] us Corry Doss COMPUTER SYSTEMS AUDITOR, DNP LAB REF LAB BLOOD AN D FLUID ORD Final Result [facility] ([facility]) [address] [place] [address] * Nasopharyngeal Respiratory Panel (06/15/2025 2:47 PM EDT) Nasopharyngeal Respiratory PCR Interpretation Not Detected for all analytes Not Detected for all analytes 06/15/2025 5:19 PM EDT [facility] Swab Nasopharyngeal structure / Unknown Non-blood Collection / Unknown 06/15/2025 2:47 PM EDT 06/15/2025 3:18 PM EDT Narrative [facility] - 06/15/2025 5:19 PM EDT [...] Respiratory PCR Panel is performed using the [employer] instrument. This test is FDA approved for use with Nasopharyngeal swabs only. This test is used for clinical purposes. It should not be regarded as investigational or for research. The [facility] is certified under the Clinical Laboratory Improvement Amendments of 1988 (CLIA-88) as qualified to perform high complexity clinical laboratory testing. us Corry Doss APRN, [facility] LAB MICROBIOLOGY - G ENERAL ORDERABLES Final Result [facility] [address] [place] [address] * (ABNORMAL) Mycoplasma Pneumoniae Antibody, IgG & IgM (06/15/2025 2:42 PM EDT) Mycoplasma Pneumoniae Antibody IgM 0.11 <=0.76 U/L 06/19/2025 5:44 AM EDT [facility] ([facility]) Mycoplasma Pneumoniae Antibody IgG 0.20(H) <=0.09 U/L 06/19/2025 5:44 AM EDT [facility] ([facility]) Blood Arterial blood specimen / Unknown Arterial Puncture / Unknown 06/15/2025 2:42 PM EDT 06/15/2025 3:02 PM EDT Narrative [facility] ([facility]) - 06/19/2025 5:44 AM EDT INTERPRETIVE INFORMATION: [...] more than 12 months post-infection. Performed By: [facility] [address] [place] [address] Production Honing Machine Operator: Sotero Banuelos MD, PhD CLIA Number: [id number] Corry Doss COMPUTER SYSTEMS AUDITOR, DNP LAB BLOOD ORDERABLES Final Result [facility] ([facility]) [address] [place] [address] * (ABNORMAL) Blood gas panel, arterial (06/15/2025 11:39 AM EDT) pH, Arterial 7.47(H) 7.31 - 7.42 LAB HEMATOLOGY METHOD 06/15/2025 11:48 AM EDT [facility] pCO2, Arterial 35 32 - 45 mmHg LAB HEMATOLOGY METHOD 06/15/2025 11:48 AM EDT [facility] pO2, Arterial 57(LL) >70 mmHg LAB HEMATOLOGY METHOD 06/15/2025 11:48 AM EDT [facility] SO2, Measured, Arterial 91(L) 94 - 98 % LAB HEMATOLOGY METHOD 06/15/2025 11:48 AM EDT [facility] Base Excess, Arterial 1.7 -2.0 - 3.0 mmol/L LAB HEMATOLOGY METHOD 06/15/2025 11:48 AM EDT [facility] Bicarbonate, Calculated, Arterial 25 22 - 26 mmol/L LAB HEMATOLOGY METHOD 06/15/2025 11:48 AM EDT [facility] Hematocrit, Whole Blood 36.2(L) 40.0 - 51.0 % LAB HEMATOLOGY METHOD 06/15/2025 11:48 AM EDT [facility] Sodium, Whole Blood 139 136 - 145 mmol/L LAB HEMATOLOGY METHOD 06/15/2025 11:48 AM EDT [facility] Potassium, Whole Blood 3.1(L) 3.6 - 4.9 mmol/L LAB HEMATOLOGY METHOD 06/15/2025 11:48 AM EDT [facility] Chloride, Whole Blood 107 97 - 107 mmol/L LAB HEMATOLOGY METHOD 06/15/2025 11:48 AM EDT [facility] Glucose, Whole Blood 174(H) 74 - 99 mg/dL LAB HEMATOLOGY METHOD 06/15/2025 11:48 AM EDT [facility] Ionized Calcium, Whole Blood 4.6 4.6 - 5.1 mg/dL LAB HEMATOLOGY METHOD 06/15/2025 11:48 AM EDT [facility] Lactate, Arterial, Whole Blood 1.7(H) 0.5 - 1.6 mmol/L LAB HEMATOLOGY METHOD 06/15/2025 11:48 AM EDT [facility] Blood Arterial blood specimen / Unknown Arterial Puncture / Unknown 06/15/2025 11:39 AM EDT 06/15/2025 11:44 AM EDT us Roshan Haas APRN, DNP LAB BLOOD ORDERABLES Fi nal Result [facility] [address] [place] [address] * Vancomycin, random (06/15/2025 11:38 AM EDT) Vancomycin, Random, Plasma 8.2 ug/mL 06/15/2025 12:18 PM EDT [facility] Blood Venous blood specimen / Unknown Venipuncture / Unknown 06/15/2025 11:38 AM EDT 06/15/2025 11:48 AM EDT Corry Doss APRN, DNP LAB BLOOD ORDERABLES Final Result [facility] [address] [place] [address] * [place] CRITICAL CARE, E/M 30-74 MINUTES (06/15/2025 9:09 [...] LAB HEMATOLOGY METHOD 06/15/2025 6:27 AM EDT [facility] pCO2, Arterial 37 32 - 45 mmHg LAB HEMATOLOGY METHOD 06/15/2025 6:27 AM EDT [facility] pO2, Arterial 61(L) >70 mmHg LAB HEMATOLOGY METHOD 06/15/2025 6:27 AM EDT [facility] SO2, Measured, Arterial 92(L) 94 - 98 % LAB HEMATOLOGY METHOD 06/15/2025 6:27 AM EDT [facility] Base Excess, Arterial 1.9 -2.0 - 3.0 mmol/L LAB HEMATOLOGY METHOD 06/15/2025 6:27 AM EDT [facility] Bicarbonate, Calculated, Arterial 26 22 - 26 mmol/L LAB HEMATOLOGY METHOD 06/15/2025 6:27 AM EDT [facility] Hematocrit, Whole Blood 35.9(L) 40.0 - 51.0 % LAB HEMATOLOGY METHOD 06/15/2025 6:27 AM EDT [facility] Sodium, Whole Blood 138 136 - 145 mmol/L LAB HEMATOLOGY METHOD 06/15/2025 6:27 AM EDT [facility] Potassium, Whole Blood 3.3(L) 3.6 - 4.9 mmol/L LAB HEMATOLOGY METHOD 06/15/2025 6:27 AM EDT [facility] Chloride, Whole Blood 108(H) 97 - 107 mmol/L LAB HEMATOLOGY METHOD 06/15/2025 6:27 AM EDT [facility] Glucose, Whole Blood 173(H) 74 - 99 mg/dL LAB HEMATOLOGY METHOD 06/15/2025 6:27 AM EDT [facility] Ionized Calcium, Whole Blood 4.5(L) 4.6 - 5.1 mg/dL LAB HEMATOLOGY METHOD 06/15/2025 6:27 AM EDT [facility] Lactate, Arterial, Whole Blood 1.5 0.5 - 1.6 mmol/L LAB HEMATOLOGY METHOD 06/15/2025 6:27 AM EDT [facility] Blood Arterial blood specimen / Unknown Arterial Puncture / Unknown 06/15/2025 6:20 AM EDT 06/15/2025 6:25 AM EDT us Roshan Haas COMPUTER SYSTEMS AUDITOR, DNP LAB BLOOD ORDERABLES Fi nal Result [facility] [address] [place] [address] * XR Chest 1 View (06/15/2025 6:12 [...] MD on 06/15/2025 11:59 PM Corry Doss COMPUTER SYSTEMS AUDITOR, DNP IMG XR PROCEDURES Fi nal Result * (ABNORMAL) Blood gas panel, arterial (06/15/2025 12:25 AM EDT) pH, Arterial 7.43(H) 7.31 - 7.42 LAB HEMATOLOGY METHOD 06/15/2025 12:36 AM EDT [facility] pCO2, Arterial 38 32 - 45 mmHg LAB HEMATOLOGY METHOD 06/15/2025 12:36 AM EDT [facility] pO2, Arterial 65(L) >70 mmHg LAB HEMATOLOGY METHOD 06/15/2025 12:36 AM EDT [facility] SO2, Measured, Arterial 93(L) 94 - 98 % LAB HEMATOLOGY METHOD 06/15/2025 12:36 AM EDT [facility] Base Excess, Arterial 1.0 -2.0 - 3.0 mmol/L LAB HEMATOLOGY METHOD 06/15/2025 12:36 AM EDT [facility] Bicarbonate, Calculated, Arterial 25 22 - 26 mmol/L LAB HEMATOLOGY METHOD 06/15/2025 12:36 AM EDT [facility] Hematocrit, Whole Blood 34.9(L) 40.0 - 51.0 % LAB HEMATOLOGY METHOD 06/15/2025 12:36 AM EDT [facility] Sodium, Whole Blood 139 136 - 145 mmol/L LAB HEMATOLOGY METHOD 06/15/2025 12:36 AM EDT [facility] Potassium, Whole Blood 3.4(L) 3.6 - 4.9 mmol/L LAB HEMATOLOGY METHOD 06/15/2025 12:36 AM EDT [facility] Chloride, Whole Blood 106 97 - 107 mmol/L LAB HEMATOLOGY METHOD 06/15/2025 12:36 AM EDT [facility] LAB Glucose, Whole Blood 173(H) 74 - 99 mg/dL LAB HEMATOLOGY METHOD 06/15/2025 12:36 AM EDT [facility] Ionized Calcium, Whole Blood 4.5(L) 4.6 - 5.1 mg/dL LAB HEMATOLOGY METHOD 06/15/2025 12:36 AM EDT [facility] Lactate, Arterial, Whole Blood 1.8(H) 0.5 - 1.6 mmol/L LAB HEMATOLOGY METHOD 06/15/2025 12:36 AM EDT [facility] Blood Arterial blood specimen / Unknown Arterial Puncture / Unknown 06/15/2025 12:25 AM EDT 06/15/2025 12:34 AM EDT Roshan Haas APRN, DNP LAB BLOOD ORDERABLES Fi nal Result Performing Organization Address City/[facility]/[place] [address] * Phosphorus (06/15/2025 12:25 AM EDT) Phosphorus, Plasma 3.2 2.5 - 4.5 mg/dL 06/15/2025 1:04 AM EDT [facility] Blood Arterial blood specimen / Unknown Venipuncture / Unknown 06/15/2025 12:25 AM EDT 06/15/2025 12:32 AM EDT Dyllan Paul MD LAB BLOOD ORDERABLES Final Re sult [facility] [address] [place] [address] * Magnesium (06/15/2025 12:25 AM EDT) Magnesium, Plasma 2.3 1.9 - 2.4 mg/dL 06/15/2025 1:04 AM EDT [facility] Blood Arterial blood specimen / Unknown Venipuncture / Unknown 06/15/2025 12:25 AM EDT 06/15/2025 12:32 AM EDT us Dyllan Paul MD LAB BLOOD ORDERABLES Final Re sult [facility] [address] [place] [address] * (ABNORMAL) Basic metabolic panel (06/15/2025 12:25 AM EDT) Glucose, Plasma 168(H) 74 - 99 mg/dL 06/15/2025 1:04 AM EDT [facility] BUN, Plasma 58(H) 8 - 23 mg/dL 06/15/2025 1:04 AM EDT [facility] Creatinine, Plasma 2.18(H) 0.70 - 1.20 mg/dL 06/15/2025 1:04 AM EDT [facility] BUN/Creatinine Ratio 06/15/2025 1:04 AM EDT [facility] Sodium, Plasma 137 136 - 145 mmol/L 06/15/2025 1:04 AM EDT [facility] Potassium, Plasma 3.8 3.6 - 4.9 mmol/L 06/15/2025 1:04 AM EDT [facility] Chloride, Plasma 107 97 - 107 mmol/L 06/15/2025 1:04 AM EDT [facility] CO2, Plasma 23 22 - 29 mmol/L 06/15/2025 1:04 AM EDT [facility] Anion Gap 7 6 - 16 mmol/L 06/15/2025 1:04 AM EDT [facility] Total Calcium, Plasma 7.9(L) 8.9 - 10.2 mg/dL 06/15/2025 1:04 AM EDT [facility] eGFRcr 31.8 mL/min/1.7 3m*2 06/15/2025 1:04 AM EDT [facility] Comment:Reported eGFRcr in m L/min/1.73m2 is based the CKD-EPI 2020 equation that does not use a race coefficient. Blood Arterial blood specimen / Unknown Venipuncture / Unknown 06/15/2025 12:25 AM EDT 06/15/2025 12:32 AM EDT Dyllan Paul MD LAB BLOOD ORDERABLES Final Re sult [facility] [address] [place] [address] * (ABNORMAL) Hemogram (CBC) (06/15/2025 12:25 AM EDT) WBC Count 15.49(H) 3.70 - 10.30 10*3/uL LAB HEMATOLOGY METHOD 06/15/2025 12:43 AM EDT [facility] RBC Count 3.57(L) 4.60 - 6.10 10*6/uL LAB HEMATOLOGY METHOD 06/15/2025 12:43 AM EDT [facility] HGB 11.6(L) 13.7 - 17.5 g/dL LAB HEMATOLOGY METHOD 06/15/2025 12:43 AM EDT [facility] HCT 33.1(L) 40.0 - 51.0 % LAB HEMATOLOGY METHOD 06/15/2025 12:43 AM EDT [facility] Platelet Count 68(L) 155 - 369 10*3/uL LAB HEMATOLOGY METHOD 06/15/2025 12:43 AM EDT [facility] MCV 93 79 - 98 fL LAB HEMATOLOGY METHOD 06/15/2025 12:43 AM EDT [facility] MCH 32.5(H) 26.0 - 32.0 pg LAB HEMATOLOGY METHOD 06/15/2025 12:43 AM EDT [facility] MCHC 35.0 30.7 - 35.5 g/dL LAB HEMATOLOGY METHOD 06/15/2025 12:43 AM EDT [facility] RDW 15.6(H) 11.5 - 14.5 % LAB HEMATOLOGY METHOD 06/15/2025 12:43 AM EDT [facility] MPV 12.7(H) 8.8 - 12.5 fL LAB HEMATOLOGY METHOD 06/15/2025 12:43 AM EDT [facility] nRBC 0.0 <=0.0 per 100 WBCs LAB HEMATOLOGY METHOD 06/15/2025 12:43 AM EDT [facility] Blood Arterial blood specimen / Unknown Venipuncture / Unknown 06/15/2025 12:25 AM EDT 06/15/2025 12:34 AM EDT us Dyllan Paul MD LAB BLOOD ORDERABLES Final Re sult [facility] [address] [place] [address] * (ABNORMAL) Blood gas panel, arterial (06/14/2025 6:07 PM EDT) pH, Arterial 7.41 7.31 - 7.42 LAB HEMATOLOGY METHOD 06/14/2025 6:14 PM EDT [facility] pCO2, Arterial 40 32 - 45 mmHg LAB HEMATOLOGY METHOD 06/14/2025 6:14 PM EDT [facility] pO2, Arterial 55(LL) >70 mmHg LAB HEMATOLOGY METHOD 06/14/2025 6:14 PM EDT [facility] SO2, Measured, Arterial 88(L) 94 - 98 % LAB HEMATOLOGY METHOD 06/14/2025 6:14 PM EDT [facility] Base Excess, Arterial 0.4 -2.0 - 3.0 mmol/L LAB HEMATOLOGY METHOD 06/14/2025 6:14 PM EDT [facility] Bicarbonate, Calculated, Arterial 25 22 - 26 mmol/L LAB HEMATOLOGY METHOD 06/14/2025 6:14 PM EDT [facility] Hematocrit, Whole Blood 36.1(L) 40.0 - 51.0 % LAB HEMATOLOGY METHOD 06/14/2025 6:14 PM EDT [facility] Sodium, Whole Blood 138 136 - 145 mmol/L LAB HEMATOLOGY METHOD 06/14/2025 6:14 PM EDT [facility] Potassium, Whole Blood 3.7 3.6 - 4.9 mmol/L LAB HEMATOLOGY METHOD 06/14/2025 6:14 PM EDT [facility] Chloride, Whole Blood 106 97 - 107 mmol/L LAB HEMATOLOGY METHOD 06/14/2025 6:14 PM EDT [facility] Glucose, Whole Blood 160(H) 74 - 99 mg/dL LAB HEMATOLOGY METHOD 06/14/2025 6:14 PM EDT [facility] Ionized Calcium, Whole Blood 4.5(L) 4.6 - 5.1 mg/dL LAB HEMATOLOGY METHOD 06/14/2025 6:14 PM EDT [facility] Lactate, Arterial, Whole Blood 2.1(H) 0.5 - 1.6 mmol/L LAB HEMATOLOGY METHOD 06/14/2025 6:14 PM EDT [facility] Blood Arterial blood specimen / Unknown Arterial Line / Unknown 06/14/2025 6:07 PM EDT 06/14/2025 6:13 PM EDT us Roshan Haas COMPUTER SYSTEMS AUDITOR, DNP LAB BLOOD ORDERABLES Fi nal Result [facility] [address] [place] [address] * (ABNORMAL) Blood gas panel, arterial (06/14/2025 12:09 PM EDT) pH, Arterial 7.39 7.31 - 7.42 LAB HEMATOLOGY METHOD 06/14/2025 12:20 PM EDT [facility] pCO2, Arterial 42 32 - 45 mmHg LAB HEMATOLOGY METHOD 06/14/2025 12:20 PM EDT [facility] pO2, Arterial 64(L) >70 mmHg LAB HEMATOLOGY METHOD 06/14/2025 12:20 PM EDT [facility] SO2, Measured, Arterial 92(L) 94 - 98 % LAB HEMATOLOGY METHOD 06/14/2025 12:20 PM EDT [facility] Base Excess, Arterial -0.2 -2.0 - 3.0 mmol/L LAB HEMATOLOGY METHOD 06/14/2025 12:20 PM EDT [facility] Bicarbonate, Calculated, Arterial 25 22 - 26 mmol/L LAB HEMATOLOGY METHOD 06/14/2025 12:20 PM EDT [facility] Hematocrit, Whole Blood 37.6(L) 40.0 - 51.0 % LAB HEMATOLOGY METHOD 06/14/2025 12:20 PM EDT [facility] Sodium, Whole Blood 137 136 - 145 mmol/L LAB HEMATOLOGY METHOD 06/14/2025 12:20 PM EDT [facility] Potassium, Whole Blood 3.9 3.6 - 4.9 mmol/L LAB HEMATOLOGY METHOD 06/14/2025 12:20 PM EDT [facility] Chloride, Whole Blood 107 97 - 107 mmol/L LAB HEMATOLOGY METHOD 06/14/2025 12:20 PM EDT [facility] Glucose, Whole Blood 143(H) 74 - 99 mg/dL LAB HEMATOLOGY METHOD 06/14/2025 12:20 PM EDT [facility] Ionized Calcium, Whole Blood 4.3(L) 4.6 - 5.1 mg/dL LAB HEMATOLOGY METHOD 06/14/2025 12:20 PM EDT [facility] Lactate, Arterial, Whole Blood 2.3(H) 0.5 - 1.6 mmol/L LAB HEMATOLOGY METHOD 06/14/2025 12:20 PM EDT [facility] Blood Arterial blood specimen / Unknown Arterial Line / Unknown 06/14/2025 12:09 PM EDT 06/14/2025 12:18 PM EDT us Roshan Haas APRN, DNP LAB BLOOD ORDERABLES Fi nal Result [facility] [address] [place] [address] * [place] CRITICAL CARE, E/M 30-74 MINUTES (06/14/2025 9:53 [...] APRN, DNP LAB URINE ORDERABLES Final Result [facility] [address] [place] [address] * (ABNORMAL) Urinalysis with reflex microscopic (Culture NOT Included) (06/14/2025 8:21 AM EDT) Color, Urine Red LAB URINALYSIS - AUTOMATED METHOD 06/14/2025 10:54 AM EDT [facility] Clarity, Urine Cloudy LAB URINALYSIS - AUTOMATED METHOD 06/14/2025 10:54 AM EDT [facility] Spec [place], Urine 1.019 1.005 - 1.030 LAB URINALYSIS - AUTOMATED METHOD 06/14/2025 10:54 AM EDT [facility] pH, Urine <=5.0(L) 5.0 - 8.0 LAB URINALYSIS - AUTOMATED METHOD 06/14/2025 10:54 AM EDT [facility] Protein, Urine 100(A) Negative mg/dL LAB URINALYSIS - AUTOMATED METHOD 06/14/2025 10:54 AM EDT [facility] Glucose, Urine Negative Negative mg/dL LAB URINALYSIS - AUTOMATED METHOD 06/14/2025 10:54 AM EDT [facility] Ketones, Urine Negative Negative mg/dL LAB URINALYSIS - AUTOMATED METHOD 06/14/2025 10:54 AM EDT [facility] Blood, Urine Moderate(A) Negative LAB URINALYSIS - AUTOMATED METHOD 06/14/2025 10:54 AM EDT [facility] Bilirubin, Urine Small(A) Negative LAB URINALYSIS - AUTOMATED METHOD 06/14/2025 10:54 AM EDT [facility] Urobilinogen, Urine 1.0 0.2 to 1.0 mg/dL LAB URINALYSIS - AUTOMATED METHOD 06/14/2025 10:54 AM EDT [facility] Leukocytes, Urine Moderate(A) Negative LAB URINALYSIS - AUTOMATED METHOD 06/14/2025 10:54 AM EDT [facility] Nitrite, Urine Positive(A) Negative LAB URINALYSIS - AUTOMATED METHOD 06/14/2025 10:54 AM EDT [facility] RBC, Urine >50(A) 0 to 3 /HPF 06/14/2025 10:54 AM EDT [facility] Comment:This result was prev iously suppressed from the chart. WBC, Urine Unable to estimate due to obscuring RBC's (UNERBC) 0 to 5 /HPF 06/14/2025 10:54 AM EDT [facility] Comment:This result was prev iously suppressed from the chart. Squamous Epithelial Cells Unable to estimate due to obscuring RBC's (UNERBC) 0 to 5 /HPF 06/14/2025 10:54 AM EDT [facility] Comment:This result was prev iously suppressed from the chart. Hyaline Casts Unable to estimate due to obscuring RBC's (UNERBC) 0 to 5 /LPF 06/14/2025 10:54 AM EDT [facility] Comment:This result was prev iously suppressed from the chart. Bacteria, Urine Unable to estimate due to obscuring RBC's (UNERBC) Negative 06/14/2025 10:54 AM EDT [facility] Comment:This result was prev iously suppressed from the chart. WBC Casts Present Absent 06/14/2025 10:54 AM EDT [facility] Comment:This result was prev iously suppressed from the chart. Red Cell/Hemoglob in Casts Present Absent 06/14/2025 10:54 AM EDT [facility] Comment:This result was prev iously suppressed from the chart. Urine Urine specimen from urinary conduit / Unknown Non-blood Collection / Unknown 06/14/2025 8:21 AM EDT 06/14/2025 8:44 AM EDT Narrative [facility] - 06/14/2025 10:54 AM EDT Urinalysis dipstick results may be inaccurate due to specimen color or an interfering substance in the specimen. Performed by manual method us Corry Doss COMPUTER SYSTEMS AUDITOR, DNP LAB URINE ORDERABLES Final Result [facility] [address] [place] [address] * (ABNORMAL) Respiratory Culture and Gram Stain (06/14/2025 8:18 AM EDT) Culture Heavy Growth 06/17/2025 11:03 AM EDT [facility] Culture Mixed upper respiratory kelsi(A) 06/17/2025 11:03 AM EDT [facility] Comment:The organism value f or this result has been updated. These results have been appended to the previously preliminary verified report. Gram Stain Result Fewer than 10 Epithelial cells/LPF(A) 06/17/2025 11:03 AM EDT [facility] Gram Stain Result Greater than 25 WBC/LPF(A) 06/17/2025 11:03 AM EDT [facility] Gram Stain Result Numerous Gram negative rods(A) 06/17/2025 11:03 AM EDT [facility] Gram Stain Result Numerous Gram positive cocci in pairs and chains(A) 06/17/2025 11:03 AM EDT [facility] Gram Stain Result Moderate Gram positive cocci in clusters(A) 06/17/2025 11:03 AM EDT [facility] Aspirate Specimen from endotracheal tube / Unknown Non-blood Collection / Unknown 06/14/2025 8:18 AM EDT 06/14/2025 10:27 AM EDT Corry Doss APRN, DNP LAB MICROBIOLOGY - G ENERAL ORDERABLES Final Result [facility] [address] [place] [address] * XR Abdomen 1 View (06/14/2025 8:18 [...] day 5 KEELY 06/19/2025 10:01 AM EDT [facility] Blood Upper arm part / Unknown Venipuncture / Unknown 06/14/2025 8:17 AM EDT 06/14/2025 8:59 AM EDT us Corry Doss APRN, DNP LAB MICROBIOLOGY - G ENERAL ORDERABLES Final Result [facility] [address] [place] [address] * (ABNORMAL) Procalcitonin, Plasma (06/14/2025 8:17 AM EDT) Procalcitonin, Plasma 1.99(H) <0.09 ng/mL 06/14/2025 9:20 AM EDT [facility] Blood Venous blood specimen / Unknown Venipuncture / Unknown 06/14/2025 8:17 AM EDT 06/14/2025 8:43 AM EDT Narrative [facility] - 06/14/2025 9:20 AM EDT [...] predict 28 day mortality risk. Please consult [email or web address] for more information. Test performed at [facility]. us Corry Doss APRN, [place] LAB BLOOD ORDERABLES Final Result [facility] [address] [place] [address] * (ABNORMAL) Blood gas panel, arterial (06/14/2025 5:30 AM EDT) pH, Arterial 7.37 7.31 - 7.42 LAB HEMATOLOGY METHOD 06/14/2025 5:43 AM EDT [facility] pCO2, Arterial 43 32 - 45 mmHg LAB HEMATOLOGY METHOD 06/14/2025 5:43 AM EDT [facility] pO2, Arterial 58(LL) >70 mmHg LAB HEMATOLOGY METHOD 06/14/2025 5:43 AM EDT [facility] SO2, Measured, Arterial 88(L) 94 - 98 % LAB HEMATOLOGY METHOD 06/14/2025 5:43 AM EDT [facility] Base Excess, Arterial -0.4 -2.0 - 3.0 mmol/L LAB HEMATOLOGY METHOD 06/14/2025 5:43 AM EDT [facility] Bicarbonate, Calculated, Arterial 25 22 - 26 mmol/L LAB HEMATOLOGY METHOD 06/14/2025 5:43 AM EDT [facility] Hematocrit, Whole Blood 38.5(L) 40.0 - 51.0 % LAB HEMATOLOGY METHOD 06/14/2025 5:43 AM EDT [facility] Sodium, Whole Blood 138 136 - 145 mmol/L LAB HEMATOLOGY METHOD 06/14/2025 5:43 AM EDT [facility] Potassium, Whole Blood 4.1 3.6 - 4.9 mmol/L LAB HEMATOLOGY METHOD 06/14/2025 5:43 AM EDT [facility] Chloride, Whole Blood 106 97 - 107 mmol/L LAB HEMATOLOGY METHOD 06/14/2025 5:43 AM EDT [facility] Glucose, Whole Blood 141(H) 74 - 99 mg/dL LAB HEMATOLOGY METHOD 06/14/2025 5:43 AM EDT [facility] Ionized Calcium, Whole Blood 4.3(L) 4.6 - 5.1 mg/dL LAB HEMATOLOGY METHOD 06/14/2025 5:43 AM EDT [facility] Lactate, Arterial, Whole Blood 2.1(H) 0.5 - 1.6 mmol/L LAB HEMATOLOGY METHOD 06/14/2025 5:43 AM EDT [facility] Blood Arterial blood specimen / Unknown Arterial Puncture / Unknown 06/14/2025 5:30 AM EDT 06/14/2025 5:37 AM EDT us Roshan Haas APRN, DNP LAB BLOOD ORDERABLES Fi nal Result [facility] [address] [place] [address] * ECG Adult (06/14/2025 4:26 AM EDT) EKG DIAGNOSIS CLASS Abnormal MUSE ECG Ventricular Rate 109 BPM MUSE ECG Atrial Rate 109 BPM MUSE ECG TN Interval 152 ms MUSE ECG QRSD Interval 86 ms MUSE ECG QT Interval 336 ms MUSE ECG QTC Interval 452 ms MUSE ECG P [place] -6 degrees MUSE ECG R [place] -1 degrees MUSE ECG T Wave [place] 5 degrees MUSE ECG Diagnosis Sinus tachycardia [...] 4:26 AM EDT 06/14/2025 2:38 PM EDT Raymond Katz COMPUTER SYSTEMS AUDITOR ECG ORDERABLES Final Result MUSE ECG * [...] MD on 06/14/2025 4:30 AM Raymond Katz COMPUTER SYSTEMS AUDITOR IMG XR PROCEDURES Final Resul t * (ABNORMAL) Blood gas panel, arterial (06/14/2025 3:35 AM EDT) pH, Arterial 7.37 7.31 - 7.42 LAB HEMATOLOGY METHOD 06/14/2025 3:43 AM EDT [facility] pCO2, Arterial 43 32 - 45 mmHg LAB HEMATOLOGY METHOD 06/14/2025 3:43 AM EDT [facility] pO2, Arterial 64(L) >70 mmHg LAB HEMATOLOGY METHOD 06/14/2025 3:43 AM EDT [facility] SO2, Measured, Arterial 91(L) 94 - 98 % LAB HEMATOLOGY METHOD 06/14/2025 3:43 AM EDT [facility] Base Excess, Arterial -0.6 -2.0 - 3.0 mmol/L LAB HEMATOLOGY METHOD 06/14/2025 3:43 AM EDT [facility] Bicarbonate, Calculated, Arterial 25 22 - 26 mmol/L LAB HEMATOLOGY METHOD 06/14/2025 3:43 AM EDT [facility] Hematocrit, Whole Blood 38.2(L) 40.0 - 51.0 % LAB HEMATOLOGY METHOD 06/14/2025 3:43 AM EDT [facility] Sodium, Whole Blood 139 136 - 145 mmol/L LAB HEMATOLOGY METHOD 06/14/2025 3:43 AM EDT [facility] Potassium, Whole Blood 4.1 3.6 - 4.9 mmol/L LAB HEMATOLOGY METHOD 06/14/2025 3:43 AM EDT [facility] Chloride, Whole Blood 106 97 - 107 mmol/L LAB HEMATOLOGY METHOD 06/14/2025 3:43 AM EDT [facility] Glucose, Whole Blood 140(H) 74 - 99 mg/dL LAB HEMATOLOGY METHOD 06/14/2025 3:43 AM EDT [facility] Ionized Calcium, Whole Blood 4.4(L) 4.6 - 5.1 mg/dL LAB HEMATOLOGY METHOD 06/14/2025 3:43 AM EDT [facility] Lactate, Arterial, Whole Blood 2.0(H) 0.5 - 1.6 mmol/L LAB HEMATOLOGY METHOD 06/14/2025 3:43 AM EDT [facility] Blood Arterial blood specimen / Unknown Arterial Puncture / Unknown 06/14/2025 3:35 AM EDT 06/14/2025 3:41 AM EDT us Raymond Katz COMPUTER SYSTEMS AUDITOR LAB BLOOD ORDERABLES Final Re sult [facility] [address] [place] [address] * N-Terminal Probnp (06/14/2025 12:41 AM EDT) N-Terminal, PROBNP, Plasma 109 0 - 899 pg/mL 06/14/2025 4:32 AM EDT [facility] Blood Arterial blood specimen / Unknown Venipuncture / Unknown 06/14/2025 12:41 AM EDT 06/14/2025 12:47 AM EDT us Mando Michelle COMPUTER SYSTEMS AUDITOR LAB BLOOD ORDERABLES Final Result Performing Organization Address City/[facility]/ZIP Co de Phone Number [facility] [address] [place] [address] * (ABNORMAL) Blood gas panel, arterial (06/14/2025 12:41 AM EDT) pH, Arterial 7.36 7.31 - 7.42 LAB HEMATOLOGY METHOD 06/14/2025 12:48 AM EDT [facility] pCO2, Arterial 44 32 - 45 mmHg LAB HEMATOLOGY METHOD 06/14/2025 12:48 AM EDT [facility] pO2, Arterial 84 >70 mmHg LAB HEMATOLOGY METHOD 06/14/2025 12:48 AM EDT [facility] SO2, Measured, Arterial 97 94 - 98 % LAB HEMATOLOGY METHOD 06/14/2025 12:48 AM EDT [facility] Base Excess, Arterial -0.8 -2.0 - 3.0 mmol/L LAB HEMATOLOGY METHOD 06/14/2025 12:48 AM EDT [facility] Bicarbonate, Calculated, Arterial 25 22 - 26 mmol/L LAB HEMATOLOGY METHOD 06/14/2025 12:48 AM EDT [facility] Hematocrit, Whole Blood 38.2(L) 40.0 - 51.0 % LAB HEMATOLOGY METHOD 06/14/2025 12:48 AM EDT [facility] Sodium, Whole Blood 140 136 - 145 mmol/L LAB HEMATOLOGY METHOD 06/14/2025 12:48 AM EDT [facility] Potassium, Whole Blood 4.2 3.6 - 4.9 mmol/L LAB HEMATOLOGY METHOD 06/14/2025 12:48 AM EDT [facility] Chloride, Whole Blood 106 97 - 107 mmol/L LAB HEMATOLOGY METHOD 06/14/2025 12:48 AM EDT [facility] Glucose, Whole Blood 143(H) 74 - 99 mg/dL LAB HEMATOLOGY METHOD 06/14/2025 12:48 AM EDT [facility] Ionized Calcium, Whole Blood 4.4(L) 4.6 - 5.1 mg/dL LAB HEMATOLOGY METHOD 06/14/2025 12:48 AM EDT [facility] Lactate, Arterial, Whole Blood 2.1(H) 0.5 - 1.6 mmol/L LAB HEMATOLOGY METHOD 06/14/2025 12:48 AM EDT [facility] Blood Arterial blood specimen / Unknown Arterial Puncture / Unknown 06/14/2025 12:41 AM EDT 06/14/2025 12:47 AM EDT us Roshan Haas COMPUTER SYSTEMS AUDITOR, DNP LAB BLOOD ORDERABLES Fi nal Result Performing Organization Address City/State/[facility] Co de Phone Number [facility] [address] [place] [address] * (ABNORMAL) Phosphorus (06/14/2025 12:41 AM EDT) Phosphorus, Plasma 6.6(H) 2.5 - 4.5 mg/dL 06/14/2025 1:18 AM EDT [facility] Blood Arterial blood specimen / Unknown Venipuncture / Unknown 06/14/2025 12:41 AM EDT 06/14/2025 12:47 AM EDT us Dyllan Paul MD LAB BLOOD ORDERABLES Final Re sult [facility] [address] [place] [address] * Magnesium (06/14/2025 12:41 AM EDT) Magnesium, Plasma 2.4 1.9 - 2.4 mg/dL 06/14/2025 1:18 AM EDT [facility] Blood Arterial blood specimen / Unknown Venipuncture / Unknown 06/14/2025 12:41 AM EDT 06/14/2025 12:47 AM EDT Dyllan Paul MD LAB BLOOD ORDERABLES Final Re sult Performing Organization Address [facility]/ZIP Co de Phone Number [facility] [address] [place] [address] * (ABNORMAL) Basic metabolic panel (06/14/2025 12:41 AM EDT) Glucose, Plasma 144(H) 74 - 99 mg/dL 06/14/2025 1:18 AM EDT [facility] BUN, Plasma 41(H) 8 - 23 mg/dL 06/14/2025 1:18 AM EDT [facility] Creatinine, Plasma 2.36(H) 0.70 - 1.20 mg/dL 06/14/2025 1:18 AM EDT [facility] BUN/Creatinine Ratio 17 06/14/2025 1:18 AM EDT [facility] Sodium, Plasma 141 136 - 145 mmol/L 06/14/2025 1:18 AM EDT [facility] Potassium, Plasma 4.8 3.6 - 4.9 mmol/L 06/14/2025 1:18 AM EDT [facility] Chloride, Plasma 107 97 - 107 mmol/L 06/14/2025 1:18 AM EDT [facility] CO2, Plasma 23 22 - 29 mmol/L 06/14/2025 1:18 AM EDT [facility] Anion Gap 11 6 - 16 mmol/L 06/14/2025 1:18 AM EDT [facility] Total Calcium, Plasma 7.9(L) 8.9 - 10.2 mg/dL 06/14/2025 1:18 AM EDT [facility] eGFRcr 28.9 mL/min/1.7 3m*2 06/14/2025 1:18 AM EDT [facility] Comment:Reported eGFRcr in m L/min/1.73m2 is based the CKD-EPI 2020 equation that does not use a race coefficient. Blood Arterial blood specimen / Unknown Venipuncture / Unknown 06/14/2025 12:41 AM EDT 06/14/2025 12:47 AM EDT us Dyllan Paul MD LAB BLOOD ORDERABLES Final Re sult [facility] [address] [place] [address] * (ABNORMAL) Hemogram (CBC) (06/14/2025 12:41 AM EDT) WBC Count 21.40(H) 3.70 - 10.30 10*3/uL LAB HEMATOLOGY METHOD 06/14/2025 12:56 AM EDT [facility] RBC Count 3.84(L) 4.60 - 6.10 10*6/uL LAB HEMATOLOGY METHOD 06/14/2025 12:56 AM EDT [facility] HGB 12.4(L) 13.7 - 17.5 g/dL LAB HEMATOLOGY METHOD 06/14/2025 12:56 AM EDT [facility] HCT 36.0(L) 40.0 - 51.0 % LAB HEMATOLOGY METHOD 06/14/2025 12:56 AM EDT [facility] Platelet Count 86(L) 155 - 369 10*3/uL LAB HEMATOLOGY METHOD 06/14/2025 12:56 AM EDT [facility] MCV 94 79 - 98 fL LAB HEMATOLOGY METHOD 06/14/2025 12:56 AM EDT [facility] MCH 32.3(H) 26.0 - 32.0 pg LAB HEMATOLOGY METHOD 06/14/2025 12:56 AM EDT [facility] MCHC 34.4 30.7 - 35.5 g/dL LAB HEMATOLOGY METHOD 06/14/2025 12:56 AM EDT [facility] RDW 16.1(H) 11.5 - 14.5 % LAB HEMATOLOGY METHOD 06/14/2025 12:56 AM EDT [facility] MPV 12.9(H) 8.8 - 12.5 fL LAB HEMATOLOGY METHOD 06/14/2025 12:56 AM EDT [facility] nRBC 0.0 <=0.0 per 100 WBCs LAB HEMATOLOGY METHOD 06/14/2025 12:56 AM EDT [facility] Blood Arterial blood specimen / Unknown Venipuncture / Unknown 06/14/2025 12:41 AM EDT 06/14/2025 12:47 AM EDT us Dyllan Paul MD LAB BLOOD ORDERABLES Final Re sult [facility] [address] [place] [address] * (ABNORMAL) Blood gas panel, arterial (06/13/2025 5:13 PM EDT) pH, Arterial 7.34 7.31 - 7.42 LAB HEMATOLOGY METHOD 06/13/2025 5:20 PM EDT [facility] pCO2, Arterial 47(H) 32 - 45 mmHg LAB HEMATOLOGY METHOD 06/13/2025 5:20 PM EDT [facility] pO2, Arterial 72 >70 mmHg LAB HEMATOLOGY METHOD 06/13/2025 5:20 PM EDT [facility] SO2, Measured, Arterial 94 94 - 98 % LAB HEMATOLOGY METHOD 06/13/2025 5:20 PM EDT [facility] Base Excess, Arterial -1.1 -2.0 - 3.0 mmol/L LAB HEMATOLOGY METHOD 06/13/2025 5:20 PM EDT [facility] Bicarbonate, Calculated, Arterial 25 22 - 26 mmol/L LAB HEMATOLOGY METHOD 06/13/2025 5:20 PM EDT [facility] Hematocrit, Whole Blood 38.3(L) 40.0 - 51.0 % LAB HEMATOLOGY METHOD 06/13/2025 5:20 PM EDT [facility] Sodium, Whole Blood 139 136 - 145 mmol/L LAB HEMATOLOGY METHOD 06/13/2025 5:20 PM EDT [facility] Potassium, Whole Blood 4.0 3.6 - 4.9 mmol/L LAB HEMATOLOGY METHOD 06/13/2025 5:20 PM EDT [facility] Chloride, Whole Blood 107 97 - 107 mmol/L LAB HEMATOLOGY METHOD 06/13/2025 5:20 PM EDT [facility] Glucose, Whole Blood 143(H) 74 - 99 mg/dL LAB HEMATOLOGY METHOD 06/13/2025 5:20 PM EDT [facility] Ionized Calcium, Whole Blood 4.4(L) 4.6 - 5.1 mg/dL LAB HEMATOLOGY METHOD 06/13/2025 5:20 PM EDT [facility] Lactate, Arterial, Whole Blood 2.0(H) 0.5 - 1.6 mmol/L LAB HEMATOLOGY METHOD 06/13/2025 5:20 PM EDT [facility] Blood Arterial blood specimen / Unknown Arterial Puncture / Unknown 06/13/2025 5:13 PM EDT 06/13/2025 5:19 PM EDT Roshan Haas APRN, DNP LAB BLOOD ORDERABLES Fi nal Result [facility] [address] [place] [address] * Ionized calcium, whole blood (06/13/2025 3:35 PM EDT) Ionized Calcium, Whole Blood 4.6 4.6 - 5.1 mg/dL LAB HEMATOLOGY METHOD 06/13/2025 4:00 PM EDT [facility] Blood Venous blood specimen / Unknown Venipuncture / Unknown 06/13/2025 3:35 PM EDT 06/13/2025 3:57 PM EDT Roshan Haas APRN, DNP LAB BLOOD ORDERABLES Fi nal Result [facility] [address] [place] [address] * Magnesium, Plasma (06/13/2025 3:35 PM EDT) Magnesium, Plasma 2.3 1.9 - 2.4 mg/dL 06/13/2025 4:23 PM EDT [facility] Blood Venous blood specimen / Unknown Venipuncture / Unknown 06/13/2025 3:35 PM EDT 06/13/2025 3:51 PM EDT us Roshan Haas COMPUTER SYSTEMS AUDITOR, DNP LAB BLOOD ORDERABLES Fi nal Result [facility] [address] [place] [address] * (ABNORMAL) Renal function panel (06/13/2025 3:35 PM EDT) Glucose, Plasma 148(H) 74 - 99 mg/dL 06/13/2025 4:23 PM EDT [facility] BUN, Plasma 31(H) 8 - 23 mg/dL 06/13/2025 4:23 PM EDT [facility] Creatinine, Plasma 2.02(H) 0.70 - 1.20 mg/dL 06/13/2025 4:23 PM EDT [facility] BUN/Creatinine Ratio 15 06/13/2025 4:23 PM EDT [facility] Sodium, Plasma 143 136 - 145 mmol/L 06/13/2025 4:23 PM EDT [facility] Potassium, Plasma 4.7 3.6 - 4.9 mmol/L 06/13/2025 4:23 PM EDT [facility] Chloride, Plasma 108(H) 97 - 107 mmol/L 06/13/2025 4:23 PM EDT [facility] CO2, Plasma 22 22 - 29 mmol/L 06/13/2025 4:23 PM EDT [facility] Anion Gap 13 6 - 16 mmol/L 06/13/2025 4:23 PM EDT [facility] Total Calcium, Plasma 8.2(L) 8.9 - 10.2 mg/dL 06/13/2025 4:23 PM EDT [facility] Phosphorus, Plasma 7.4(H) 2.5 - 4.5 mg/dL 06/13/2025 4:23 PM EDT [facility] Albumin, Plasma 2.6(L) 3.5 - 5.2 g/dL 06/13/2025 4:23 PM EDT [facility] eGFRcr 34.8 mL/min/1.7 3m*2 06/13/2025 4:23 PM EDT [facility] Comment:Reported eGFRcr in m L/min/1.73m2 is based the CKD-EPI 2020 equation that does not use a race coefficient. Blood Venous blood specimen / Unknown Venipuncture / Unknown 06/13/2025 3:35 PM EDT 06/13/2025 3:51 PM EDT Roshan Haas APRN, DNP LAB BLOOD ORDERABLES nal Result Performing Organization Address [facility] Co de Phone Number [facility] [address] [place] [address] * (ABNORMAL) Hemoglobin and hematocrit, blood (06/13/2025 11:57 AM EDT) HGB 12.8(L) 13.7 - 17.5 g/dL LAB HEMATOLOGY METHOD 06/13/2025 12:26 PM EDT [facility] HCT 37.2(L) 40.0 - 51.0 % LAB HEMATOLOGY METHOD 06/13/2025 12:26 PM EDT [facility] Blood Arterial blood specimen / Unknown Arterial Line / Unknown 06/13/2025 11:57 AM EDT 06/13/2025 12:17 PM EDT Roshan Haas APRN, DNP LAB BLOOD ORDERABLES Fi nal Result Performing Organization Address City/[facility]/ZIP Co de Phone Number [facility] [address] [place] [address] * (ABNORMAL) Blood gas panel, arterial (06/13/2025 11:30 AM EDT) pH, Arterial 7.34 7.31 - 7.42 LAB HEMATOLOGY METHOD 06/13/2025 11:37 AM EDT [facility] pCO2, Arterial 45 32 - 45 mmHg LAB HEMATOLOGY METHOD 06/13/2025 11:37 AM EDT [facility] pO2, Arterial 82 >70 mmHg LAB HEMATOLOGY METHOD 06/13/2025 11:37 AM EDT [facility] SO2, Measured, Arterial 96 94 - 98 % LAB HEMATOLOGY METHOD 06/13/2025 11:37 AM EDT [facility] Base Excess, Arterial -1.7 -2.0 - 3.0 mmol/L LAB HEMATOLOGY METHOD 06/13/2025 11:37 AM EDT [facility] Bicarbonate, Calculated, Arterial 24 22 - 26 mmol/L LAB HEMATOLOGY METHOD 06/13/2025 11:37 AM EDT [facility] Hematocrit, Whole Blood 39.0(L) 40.0 - 51.0 % LAB HEMATOLOGY METHOD 06/13/2025 11:37 AM EDT [facility] Sodium, Whole Blood 140 136 - 145 mmol/L LAB HEMATOLOGY METHOD 06/13/2025 11:37 AM EDT [facility] Potassium, Whole Blood 3.9 3.6 - 4.9 mmol/L LAB HEMATOLOGY METHOD 06/13/2025 11:37 AM EDT [facility] Chloride, Whole Blood 108(H) 97 - 107 mmol/L LAB HEMATOLOGY METHOD 06/13/2025 11:37 AM EDT [facility] Glucose, Whole Blood 145(H) 74 - 99 mg/dL LAB HEMATOLOGY METHOD 06/13/2025 11:37 AM EDT [facility] Ionized Calcium, Whole Blood 4.5(L) 4.6 - 5.1 mg/dL LAB HEMATOLOGY METHOD 06/13/2025 11:37 AM EDT [facility] Lactate, Arterial, Whole Blood 2.3(H) 0.5 - 1.6 mmol/L LAB HEMATOLOGY METHOD 06/13/2025 11:37 AM EDT [facility] Blood Arterial blood specimen / Unknown Arterial Puncture / Unknown 06/13/2025 11:30 AM EDT 06/13/2025 11:36 AM EDT us Roshan Haas COMPUTER SYSTEMS AUDITOR, DNP LAB BLOOD ORDERABLES Fi nal Result [facility] [address] [place] [address] * [place] CRITICAL CARE, ADDL 30 MIN (06/13/2025 10:48 [...] LAB HEMATOLOGY METHOD 06/13/2025 5:10 AM EDT [facility] pCO2, Arterial 46(H) 32 - 45 mmHg LAB HEMATOLOGY METHOD 06/13/2025 5:10 AM EDT [facility] pO2, Arterial 85 >70 mmHg LAB HEMATOLOGY METHOD 06/13/2025 5:10 AM EDT [facility] SO2, Measured, Arterial 97 94 - 98 % LAB HEMATOLOGY METHOD 06/13/2025 5:10 AM EDT [facility] Base Excess, Arterial -0.8 -2.0 - 3.0 mmol/L LAB HEMATOLOGY METHOD 06/13/2025 5:10 AM EDT [facility] Bicarbonate, Calculated, Arterial 25 22 - 26 mmol/L LAB HEMATOLOGY METHOD 06/13/2025 5:10 AM EDT [facility] Hematocrit, Whole Blood 38.7(L) 40.0 - 51.0 % LAB HEMATOLOGY METHOD 06/13/2025 5:10 AM EDT [facility] Sodium, Whole Blood 141 136 - 145 mmol/L LAB HEMATOLOGY METHOD 06/13/2025 5:10 AM EDT [facility] Potassium, Whole Blood 3.6 3.6 - 4.9 mmol/L LAB HEMATOLOGY METHOD 06/13/2025 5:10 AM EDT [facility] Chloride, Whole Blood 109(H) 97 - 107 mmol/L LAB HEMATOLOGY METHOD 06/13/2025 5:10 AM EDT [facility] Glucose, Whole Blood 137(H) 74 - 99 mg/dL LAB HEMATOLOGY METHOD 06/13/2025 5:10 AM EDT [facility] Ionized Calcium, Whole Blood 4.4(L) 4.6 - 5.1 mg/dL LAB HEMATOLOGY METHOD 06/13/2025 5:10 AM EDT [facility] Lactate, Arterial, Whole Blood 2.5(H) 0.5 - 1.6 mmol/L LAB HEMATOLOGY METHOD 06/13/2025 5:10 AM EDT [facility] Blood Arterial blood specimen / Unknown Arterial Line / Unknown 06/13/2025 4:53 AM EDT 06/13/2025 5:08 AM EDT Jones Burdick COMPUTER SYSTEMS AUDITOR LAB BLOOD ORDERABLES Francia l Result [facility] [address] [place] [address] * (ABNORMAL) Ionized calcium, whole blood (06/13/2025 4:53 AM EDT) Ionized Calcium, Whole Blood 4.4(L) 4.6 - 5.1 mg/dL LAB HEMATOLOGY METHOD 06/13/2025 5:13 AM EDT [facility] Blood Arterial blood specimen / Unknown Arterial Line / Unknown 06/13/2025 4:53 AM EDT 06/13/2025 5:10 AM EDT us Raymond Katz COMPUTER SYSTEMS AUDITOR LAB BLOOD ORDERABLES Final Re sult [facility] [address] [place] [address] * PERIPHERAL IV (SMARTFORM LINK) (06/13/2025 4:14 [...] LAB HEMATOLOGY METHOD 06/13/2025 12:43 AM EDT [facility] RBC Count 4.03(L) 4.60 - 6.10 10*6/uL LAB HEMATOLOGY METHOD 06/13/2025 12:43 AM EDT [facility] HGB 13.1(L) 13.7 - 17.5 g/dL LAB HEMATOLOGY METHOD 06/13/2025 12:43 AM EDT [facility] HCT 37.1(L) 40.0 - 51.0 % LAB HEMATOLOGY METHOD 06/13/2025 12:43 AM EDT [facility] Platelet Count 77(L) 155 - 369 10*3/uL LAB HEMATOLOGY METHOD 06/13/2025 12:43 AM EDT [facility] MCV 92 79 - 98 fL LAB HEMATOLOGY METHOD 06/13/2025 12:43 AM EDT [facility] MCH 32.5(H) 26.0 - 32.0 pg LAB HEMATOLOGY METHOD 06/13/2025 12:43 AM EDT [facility] MCHC 35.3 30.7 - 35.5 g/dL LAB HEMATOLOGY METHOD 06/13/2025 12:43 AM EDT [facility] RDW 16.1(H) 11.5 - 14.5 % LAB HEMATOLOGY METHOD 06/13/2025 12:43 AM EDT [facility] MPV 12.8(H) 8.8 - 12.5 fL LAB HEMATOLOGY METHOD 06/13/2025 12:43 AM EDT [facility] nRBC 0.6(H) <=0.0 per 100 WBCs LAB HEMATOLOGY METHOD 06/13/2025 12:43 AM EDT [facility] Blood Arterial blood specimen / Unknown Arterial Line / Unknown 06/13/2025 12:26 AM EDT 06/13/2025 12:31 AM EDT Raymond Katz COMPUTER SYSTEMS AUDITOR LAB BLOOD ORDERABLES Final Re sult [facility] [address] [place] [address] * Richar auris Surveillance by PCR (06/12/2025 10:48 PM EDT) Richar auris PCR Result Not Detected Not Detected 06/13/2025 11:46 AM EDT [facility] Swab (Axilla and Groin) Non-blood Collection / Unknown 06/12/2025 10:48 PM EDT 06/12/2025 11:08 PM EDT Narrative [facility] - 06/13/2025 11:46 AM EDT This PCR assay was developed and its performance characteristics determined by [facility] as appropriate for clinical purposes. This assay has not been cleared or approved by the FDA, but is performed in a CLIA regulated laboratory that is qualified to perform high-complexity testing. Dyllan Paul MD LAB MICROBIOLOGY - GENERAL OR DERABLES Final Result Performing Organization Address [facility]/ZIP Co de Phone Number [facility] [address] [place] [address] * Multi Drug Resistance Test (06/12/2025 10:48 PM EDT) Pathologist [facility] Culture No growth at day 1 06/14/2025 12:06 AM EDT [facility] Swab (Nares and Cari Rectal) Non-blood Collection / Unknown 06/12/2025 10:48 PM EDT 06/12/2025 11:08 PM EDT Narrative [facility] - 06/14/2025 12:06 AM EDT This test was developed and its performance characteristics determined by the [facility]. Although the media is FDA-approved, it is not FDA-approved for all specimen types submitted. The FDA has determined that such clearance or approval is not necessary. This test is used for surveillance purposes. It should not be regarded as investigational or for research. The [facility] is certified under the Clinical Laboratory Improvement Amendments of 1988 (CLIA-88) as qualified to perform high complexity clinical laboratory testing. Dyllan Paul MD LAB MICROBIOLOGY - GENERAL OR DERABLES Final Result Performing Organization Address [facility] Co de Phone Number [facility] [address] [place] [address] * (ABNORMAL) Blood gas panel, arterial (06/12/2025 10:47 PM EDT) pH, Arterial 7.35 7.31 - 7.42 LAB HEMATOLOGY METHOD 06/12/2025 10:53 PM EDT [facility] pCO2, Arterial 45 32 - 45 mmHg LAB HEMATOLOGY METHOD 06/12/2025 10:53 PM EDT [facility] pO2, Arterial 163 >70 mmHg LAB HEMATOLOGY METHOD 06/12/2025 10:53 PM EDT [facility] SO2, Measured, Arterial 100(H) 94 - 98 % LAB HEMATOLOGY METHOD 06/12/2025 10:53 PM EDT [facility] Base Excess, Arterial -0.9 -2.0 - 3.0 mmol/L LAB HEMATOLOGY METHOD 06/12/2025 10:53 PM EDT [facility] Bicarbonate, Calculated, Arterial 25 22 - 26 mmol/L LAB HEMATOLOGY METHOD 06/12/2025 10:53 PM EDT [facility] Hematocrit, Whole Blood 39.8(L) 40.0 - 51.0 % LAB HEMATOLOGY METHOD 06/12/2025 10:53 PM EDT [facility] Sodium, Whole Blood 143 136 - 145 mmol/L LAB HEMATOLOGY METHOD 06/12/2025 10:53 PM EDT [facility] Potassium, Whole Blood 3.6 3.6 - 4.9 mmol/L LAB HEMATOLOGY METHOD 06/12/2025 10:53 PM EDT [facility] Chloride, Whole Blood 110(H) 97 - 107 mmol/L LAB HEMATOLOGY METHOD 06/12/2025 10:53 PM EDT [facility] Glucose, Whole Blood 142(H) 74 - 99 mg/dL LAB HEMATOLOGY METHOD 06/12/2025 10:53 PM EDT [facility] Ionized Calcium, Whole Blood 4.6 4.6 - 5.1 mg/dL LAB HEMATOLOGY METHOD 06/12/2025 10:53 PM EDT [facility] Lactate, Arterial, Whole Blood 2.3(H) 0.5 - 1.6 mmol/L LAB HEMATOLOGY METHOD 06/12/2025 10:53 PM EDT [facility] Blood Arterial blood specimen / Unknown Arterial Puncture / Unknown 06/12/2025 10:47 PM EDT 06/12/2025 10:52 PM EDT Raymond Katz APRN LAB BLOOD ORDERABLES Final Re sult [facility] [address] [place] [address] * TN CRITICAL CARE, ADDL 30 MIN, TN CRITICAL CARE, ADDL 30 MIN, TN CRITICAL CARE, ADDL 30 MIN (06/12/2025 10:22 [...] for testing. Comment 06/12/2025 10:21 PM EDT [facility] Ornament Stapler ID Nikolay Mccall 06/12/2025 10:21 PM EDT [facility] Device ID [id number] 06/12/2025 10:21 PM EDT [facility] Specimen Type POC Capillary 06/12/2025 10:21 PM EDT [facility] Blood Capillary blood specimen / Unknown 06/12/2025 10:19 PM EDT 06/12/2025 10:21 PM EDT Dyllan Paul MD LAB POINT OF CARE TE ST DOCKED DEVICE UNSOLICITED RESULTS Final Result [facility] [address] [place] [address] * XR Chest 1 View (06/12/2025 9:54 [...] MD on 06/12/2025 10:00 PM Raymond Katz COMPUTER SYSTEMS AUDITOR IMG XR PROCEDURES Final Resul t * (ABNORMAL) APTT (06/12/2025 9:27 PM EDT) aPTT 37(H) 25 - 35 sec LAB COAGULATION METHOD 06/12/2025 10:04 PM EDT [facility] Blood Arterial blood specimen / Unknown Arterial Line / Unknown 06/12/2025 9:27 PM EDT 06/12/2025 9:42 PM EDT Dyllan Paul MD LAB BLOOD ORDERABLES Final Re sult Performing Organization Address [facility]/ZIP Co de Phone Number [facility] [address] [place] [address] * (ABNORMAL) Protime-INR (06/12/2025 9:27 PM EDT) Prothrombin Time 20.7(H) 12.0 - 14.3 sec LAB COAGULATION METHOD 06/12/2025 10:04 PM EDT [facility] INR 1.8(H) 0.9 - 1.1 LAB COAGULATION METHOD 06/12/2025 10:04 PM EDT [facility] Blood Arterial blood specimen / Unknown Arterial Line / Unknown 06/12/2025 9:27 PM EDT 06/12/2025 9:42 PM EDT Narrative [facility] - 06/12/2025 10:04 PM EDT OPTIMAL INR RANGES FOR PATIENT ON ORAL ANTICOAGULANT THERAPY Prevention of venous thromboembolism INR 2.0 to 3.0 In patients with heart disease: Atrial fibrillation INR 2.0 to 3.0 Valvular heart disease INR 2.0 to 3.0 Tissue heart valves INR 2.0 to 3.0 Mechanical prosthetic valves INR 2.5 to 3.5 Prevention of recurrent AL INR 2.5 to 3.5 Dyllan Paul MD LAB BLOOD ORDERABLES Final Re sult Performing Organization Address [facility] Co de Phone Number [facility] [address] [place] [address] * (ABNORMAL) Phosphorus (06/12/2025 9:27 PM EDT) Phosphorus, Plasma 5.1(H) 2.5 - 4.5 mg/dL 06/12/2025 10:12 PM EDT [facility] Blood Arterial blood specimen / Unknown Arterial Line / Unknown 06/12/2025 9:27 PM EDT 06/12/2025 9:42 PM EDT Dyllan Paul MD LAB BLOOD ORDERABLES Final Re sult [facility] [address] [place] [address] * (ABNORMAL) Magnesium (06/12/2025 9:27 PM EDT) Magnesium, Plasma 1.5(L) 1.9 - 2.4 mg/dL 06/12/2025 10:12 PM EDT [facility] Blood Arterial blood specimen / Unknown Arterial Line / Unknown 06/12/2025 9:27 PM EDT 06/12/2025 9:42 PM EDT us Dyllan Paul MD LAB BLOOD ORDERABLES Final Re sult [facility] [address] [place] [address] * (ABNORMAL) Comprehensive metabolic panel (06/12/2025 9:27 PM EDT) Glucose, Plasma 148(H) 74 - 99 mg/dL 06/12/2025 10:12 PM EDT [facility] BUN, Plasma 17 8 - 23 mg/dL 06/12/2025 10:12 PM EDT [facility] Creatinine, Plasma 1.06 0.70 - 1.20 mg/dL 06/12/2025 10:12 PM EDT [facility] BUN/Creatinine Ratio 16 06/12/2025 10:12 PM EDT [facility] Sodium, Plasma 143 136 - 145 mmol/L 06/12/2025 10:12 PM EDT [facility] Potassium, Plasma 4.1 3.6 - 4.9 mmol/L 06/12/2025 10:12 PM EDT [facility] Chloride, Plasma 109(H) 97 - 107 mmol/L 06/12/2025 10:12 PM EDT [facility] CO2, Plasma 22 22 - 29 mmol/L 06/12/2025 10:12 PM EDT [facility] Anion Gap 12 6 - 16 mmol/L 06/12/2025 10:12 PM EDT [facility] Total Calcium, Plasma 8.5(L) 8.9 - 10.2 mg/dL 06/12/2025 10:12 PM EDT [facility] Total Protein 4.2(L) 6.3 - 7.9 g/dL 06/12/2025 10:12 PM EDT [facility] Albumin, Plasma 2.6(L) 3.5 - 5.2 g/dL 06/12/2025 10:12 PM EDT [facility] AST, Plasma 71(H) 10 - 50 U/L 06/12/2025 10:12 PM EDT [facility] Comment:Hemolyzed, result ma y be falsely increased. ALT, Plasma 39 10 - 50 U/L 06/12/2025 10:12 PM EDT [facility] Alkaline Phosphatase, Plasma 109 40 - 115 U/L 06/12/2025 10:12 PM EDT [facility] Total Bilirubin, Plasma 2.8(H) 0.2 - 1.1 mg/dL 06/12/2025 10:12 PM EDT [facility] eGFRcr 75.5 mL/min/1.7 3m*2 06/12/2025 10:12 PM EDT [facility] Comment:Reported eGFRcr in m L/min/1.73m2 is based the CKD-EPI 2020 equation that does not use a race coefficient. Blood Arterial blood specimen / Unknown Arterial Line / Unknown 06/12/2025 9:27 PM EDT 06/12/2025 9:42 PM EDT us Dyllan Paul MD LAB BLOOD ORDERABLES Final Re sult [facility] [address] [place] [address] * (ABNORMAL) CBC W/O Differential (06/12/2025 9:27 PM EDT) WBC Count 11.67(H) 3.70 - 10.30 10*3/uL LAB HEMATOLOGY METHOD 06/12/2025 10:23 PM EDT [facility] RBC Count 3.91(L) 4.60 - 6.10 10*6/uL LAB HEMATOLOGY METHOD 06/12/2025 10:23 PM EDT [facility] HGB 12.5(L) 13.7 - 17.5 g/dL LAB HEMATOLOGY METHOD 06/12/2025 10:23 PM EDT [facility] HCT 36.2(L) 40.0 - 51.0 % LAB HEMATOLOGY METHOD 06/12/2025 10:23 PM EDT [facility] Platelet Count 70(L) 155 - 369 10*3/uL LAB HEMATOLOGY METHOD 06/12/2025 10:23 PM EDT [facility] MCV 93 79 - 98 fL LAB HEMATOLOGY METHOD 06/12/2025 10:23 PM EDT [facility] MCH 32.0 26.0 - 32.0 pg LAB HEMATOLOGY METHOD 06/12/2025 10:23 PM EDT [facility] MCHC 34.5 30.7 - 35.5 g/dL LAB HEMATOLOGY METHOD 06/12/2025 10:23 PM EDT [facility] RDW 16.0(H) 11.5 - 14.5 % LAB HEMATOLOGY METHOD 06/12/2025 10:23 PM EDT [facility] MPV 12.8(H) 8.8 - 12.5 fL LAB HEMATOLOGY METHOD 06/12/2025 10:23 PM EDT [facility] nRBC 0.4(H) <=0.0 per 100 WBCs LAB HEMATOLOGY METHOD 06/12/2025 10:23 PM EDT [facility] Blood Arterial blood specimen / Unknown Arterial Line / Unknown 06/12/2025 9:27 PM EDT 06/12/2025 9:43 PM EDT us Dyllan Paul MD LAB BLOOD ORDERABLES Final Re sult [facility] [address] [place] [address] * (ABNORMAL) POCT arterial blood gas gem (06/12/2025 9:19 PM EDT) pH, Arterial 7.34 7.31 - 7.42 06/12/2025 9:20 PM EDT [facility] pCO2, Arterial 44 32 - 45 mm Hg 06/12/2025 9:20 PM EDT [facility] pO2, Arterial 81 >70 mm Hg 06/12/2025 9:20 PM EDT [facility] SO2, Arterial 98 94 - 98 % 06/12/2025 9:20 PM EDT [facility] Base Excess, Arterial -2.2(L) -2 - 3 mmol/L 06/12/2025 9:20 PM EDT [facility] HCO3, Arterial 23.7 22 - 26 mmol/L 06/12/2025 9:20 PM EDT [facility] Total Hemoglobin, Arterial, Whole Blood 12.2(L) 13.7 - 17.5 g/dL 06/12/2025 9:20 PM [facility] Hematocrit, Arterial 37.0(L) 40 - 51.0 % 06/12/2025 9:20 PM EDT [facility] Sodium, Arterial 141 136 - 145 mmol/L 06/12/2025 9:20 PM T [facility] Potassium, Arterial 3.4(L) 3.6 - 4.9 mmol/L 06/12/2025 9:20 PM [facility] Chloride, Whole Blood 112(H) 97 - 107 mmol/L 06/12/2025 9:20 PM [facility] Glucose, Arterial 129(H) 74 - 99 mg/dL 06/12/2025 9:20 PM [facility] Ionized Calcium, Arterial 4.5(L) 4.6 - 5.1 mg/dL 06/12/2025 9:20 PM [facility] Lactate, Arterial 2.4(H) 0.5 - 1.6 mmol/L 06/12[facility]25 [facility] Body Temperature 37.0 Celsius 06/12/2025 9:20 PM [facility] pH, Temp Corrected, Arterial 7.34 7.31 - 7.42 06/12/2025 9:20 PM [facility] pCO2, Temp Corrected, Arterial 44 32 - 45 mm Hg 06/12/2025 9:20 PM T [facility] pO2, Temp Corrected, Arterial 81 >70 mm Hg 06/12/2025 9:20 PM [facility] [employer] ID Dyllan Wong 06/12/2025 9:20 PM [facility] Blood, Arterial Whole blood specimen / Unknown 06/12/2025 9:19 PM EDT 06/12/2025 9:20 PM EDT us Dyllan Paul MD LAB POINT OF CARE TE ST DOCKED DEVICE UNSOLICITED RESULTS Final Result [facility] [address] [place] [address] * (ABNORMAL) POCT venous blood gas gem (06/12/2025 7:35 PM EDT) pH, Venous 7.29(L) 7.32 - 7.43 06/12/2025 7:36 PM EDT [facility] pCO2, Venous 56(H) 40 - 55 mm Hg 06/12/2025 7:36 PM EDT [facility] pO2, Venous 55(H) 25 - 40 mm Hg 06/12/2025 7:36 PM EDT [facility] SO2, Venous 83(H) 65 - 80 % 06/12/2025 7:36 PM EDT [facility] Base Excess/Deficit, Venous -0.5 -2 - 3 mmol/L 06/12/2025 7:36 PM EDT [facility] HCO3, Venous 26.9(H) 22 - 26 mmol/L 06/12/2025 7:36 PM EDT [facility] Hemoglobin, Venous 11.9(L) 13.7 - 17.5 g/dL 06/12/2025 7:36 PM EDT [facility] Hematocrit, Venous 36.0(L) 40.0 - 51.0 % 06/12/2025 7:36 PM EDT [facility] Sodium, Venous 142 136 - 145 mmol/L 06/12/2025 7:36 PM EDT [facility] Potassium, Venous 3.5(L) 3.6 - 4.9 mmol/L 06/12/2025 7:36 PM EDT [facility] POCT Chloride, Venous 107 97 - 107 mmol/L 06/12/2025 7:36 PM EDT [facility] Glucose, Venous 120(H) 74 - 99 mg/dL 06/12/2025 7:36 PM EDT [facility] Ionized Calcium, Venous 4.0(L) 4.6 - 5.1 mg/dL 06/12/2025 7:36 PM EDT [facility] Lactate, Venous 1.8 0.5 - 2.2 mmol/L 06/12/2025 7:36 PM EDT [facility] Body Temperature 37.0 Celsius 06/12/2025 7:36 PM EDT [facility] pH, Temp Corrected, Venous 7.29(L) 7.32 - 7.43 06/12/2025 7:36 PM EDT [facility] pCO2, Temp Corrected, Venous 56(H) 40 - 55 mm Hg 06/12/2025 7:36 PM EDT [facility] pO2, Temp Corrected, Venous 55(H) 25 - 40 mm Hg 06/12/2025 7:36 PM EDT [facility] Ornament Stapler ID Dyllan Wong 06/12/2025 7:36 PM EDT [facility] Blood, Venous Whole blood specimen / Unknown 06/12/2025 7:35 PM EDT 06/12/2025 7:36 PM EDT Result [facility] Dyllan Paul MD LAB POINT OF CARE TE ST DOCKED DEVICE UNSOLICITED RESULTS Final Result Performing Organization Address City/State/[facility] Co de Phone Number HEALTHCARE LAB [address] [place] [address] * Transfuse RBC (06/12/2025 7:16 PM EDT) Afshin Reece MD BLOOD TRANSFUSION ORDERABLES Final Result * Transfuse RBC (06/12/2025 7:02 PM EDT) Afshin Reece MD BLOOD TRANSFUSION ORDERABLES Final Result * Prepare Leukocyte Reduced RBC: 4 Units (06/12/2025 6:49 PM EDT) [facility] Product Code [id number] CH BLOO D BANK Dispense Status Returned BLOOD BANK Blood Expiration Date [id number] BLOOD BANK Unit Number [id number] CH B LOOD BANK Product Blood Type 5100 BLOOD BANK Blood Type O+ BLOOD BANK Crossmatch Compatible BLOOD BANK Product Code [id number] BLOO D BANK Dispense Status Returned BLOOD BANK Blood Expiration Date [id number] BLOOD BANK Unit Number [id number] CH B LOOD BANK Product Blood Type 5100 CH BLOOD BANK Blood Type O+ CH BLOOD BANK Crossmatch Compatible CH BLOOD BANK Product Code [id number] CH BLOO D BANK Dispense Status Transfused CH BLOOD BANK Blood Expiration Date CH BLOOD BANK Unit Number [id number] CH B LOOD BANK Product Blood Type 5100 CH BLOOD BANK Blood Type O+ CH BLOOD BANK Crossmatch Compatible CH BLOOD BANK Product Code [id number] CH BLOO D BANK Dispense Status Transfused CH BLOOD BANK Blood Expiration Date BLOOD BANK Unit Number [id number] CH B LOOD BANK Product Blood Type 5100 CH BLOOD BANK Blood Type O+ CH BLOOD BANK Crossmatch Compatible CH BLOOD BANK Other Afshin Reece MD BLOOD BANK PRODUCT ORDERABLES Edited Result - Final BLOOD BANK [address] [place] [address], * Surgical Pathology Exam (06/12/2025 6:07 PM EDT) Case Report Surgical Pathology Case: [id number] Authorizing Provider: Dyllan Paul MD Collected: 06/12/2025 1807 Ordering Location: [facility] Received: 06/13/2025 0811 Pathologist: Aliza Daugherty MD Specimens: A) - Other (specify site), Prostate and seminal vesicles - fresh for permanent B) - Other (specify site), Bilateral pelvic lymph nodes - permanent 06/19/2025 10:43 AM EDT [facility] Final Diagnosis A. PROSTATE AND SEMINAL VESICLES, [...] LYMPH NODES (0/8). 06/19/2025 10:43 AM EDT [facility] at 1043 EDT Synoptic Checklist [...] Acute and chronic 06/19/2025 10:43 AM EDT [facility] Clinical Information PROSTATE CANCER 06/19/2025 10:43 AM EDT [facility] Gross Description A. PROSTATE AND SEMINAL VESICLES - FRESH FOR PERMANENT Specimen label: Prostate and seminal vesicles Specimen fixation: Formalin Specimen type: Radical Prostatectomy Specimen Weight: 75 grams Specimen Size: The prostate measures 5.0 cm cfml-jr-wjos, 5.1 cm dioxabif-qq-ezztey ior, and 7.3 cm zldq-ht-skjjb. The left seminal vesicle measures 1.5 x [...] cassettes. The prostate is serially sectioned from qkbr-zh-isvk into 9, 5mm slices. Serial sections reveal [...] Cold Time: <1m 06/19/2025 10:43 AM EDT [facility] Note: A resident was involved in the service. I attest I examined the relevant preparations for the specimens and confirmed the diagnosis or interpretation. 06/19/2025 10:43 AM EDT [facility] Tissue Topography unknown / Unknown 06/12/2025 6:07 PM EDT 06/13/2025 8:11 AM EDT Comment:Pre-op diagnosis: PROSTATE CANCER Lymph node tissue specimen (specimen) Topography unknown / Unknown 06/12/2025 6:08 PM EDT 06/13/2025 8:11 AM EDT Comment:Pre-op diagnosis: PROSTATE CANCER us Dyllan Paul MD LAB PATHOLOGY ORDERABLES Francia l Result [facility] [address] [place] [address] * POCT glucose meter (06/12/2025 1:21 PM EDT) POCT Glucose 83 74 - 99 mg/dL 06/12/2025 1:23 PM EDT [facility] Comment:Accuracy of a glucos e result [...] Comment 06/12/2025 1:23 PM EDT [facility] Ornament Stapler ID Carol Proctor 06/12/2025 1:23 PM EDT [facility] Device ID [id number] 06/12/2025 1:23 PM EDT [facility] Specimen Type POC Venous 06/12/2025 1:23 PM EDT [facility] Blood Venous blood specimen / Unknown 06/12/2025 1:21 PM EDT 06/12/2025 1:23 PM EDT Dyllan Paul MD LAB POINT OF CARE TE ST DOCKED DEVICE UNSOLICITED RESULTS Final Result Performing Organization Address City/[facility]/ZIP Co de Phone Number HEALTHCARE LAB [address] [place] [address] * Type and Screen (06/12/2025 1:14 PM [...] ORDERABLE S Final Result Performing Organization Address City/[facility] Co de Phone Number BLOOD BANK [address] [place] [address], * Phosphatidylethanol (PEth), Whole Blood, Quantitative (06/12/2025 1:14 PM EDT) PEth 16:0/18:2 (PLPEth) 251 ng/mL 06/14/2025 11:37 AM EDT [facility] ([facility]) PEth 16:0/18:1 (POPEth) 260 ng/mL 06/14/2025 11:37 AM EDT [facility] EER Peth See Note 06/14/2025 11:37 AM EDT [facility] ([facility]) PEth Interpretation See Comment 06/14/2025 11:37 AM EDT [facility] ([facility]) Blood Venous blood specimen / Unknown Venipuncture / Unknown 06/12/2025 1:14 PM EDT 06/12/2025 1:43 PM EDT Narrative [facility] ([facility]) - 06/14/2025 11:37 AM EDT PEth 16:0/18:1 (POPEth) Less than 10 ng/mL............Not detected Less than 20 ng/mL............Abstinence or light alcohol consumption 20 - 200 ng/mL................Moderate alcohol consumption Greater than 200 ng/mL........Heavy alcohol consumption or chronic alcohol use (Reference: Nichole Means and Mike Lowe 2018 J. Forensic Sci) Reference ranges are not well established. Authorized individuals can access the [facility] Enhanced Report with an [employer] Connect account using the following link. Your local lab can assist you in obtaining the patient report if you don't have a Connect account. [email or web address] Phosphatidylethanol (PEth) is a group of phospholipids [...] developed and its performance characteristics determined by [facility] [employer]. It has not been cleared or approved by the U.S. Food and Drug Administration. This test was performed in a CLIA-certified laboratory and is intended for clinical purposes. Performed By: [facility] [address] [place] [address] Production Honing Machine Operator: Sotero Banuelos MD, PhD CLIA Number: [id number] Dyllan Paul MD LAB REF LAB BLOOD AND FLUID O RD Final Result [facility] [address] [place] [address] documented in this encounter Visit Diagnoses Diagnosis Prostate CA (CMS/HCC)- Primary Malignant neoplasm of prostate Alcohol use disorder [...] Severe obesity (BMI 35.0-39.9) with comorbidity (CMS/HCC) Prostate CA (CMS/HCC) Malignant neoplasm of prostate Renal calculi Calculus of kidney Ureteral stone [...] Given 06/16/2025 9:28 AM EDT 10 mg bupivacaine PF (Marcaine) 0.25 % injection As needed, Starting on Eunice 06/12/25 at 2000, Until Mon06/12/25 at 2058, Routine, Intraprocedure Given 06/12/2025 8:00 PM EDT 30 mL Abdominal Tissue carvedilol (Coreg) tablet 3.125 mg 3.125 mg, [...] Given 06/23/2025 8:31 AM EDT 1 mg glucagon (human recombinant) injection 1 mg [...] sugar, per Hypoglycemia Prevention and Treatment protocol Abiel powder 1 packet 1 packet, Nasogastric, 2 times daily, First dose on Mon06/17/25 at 1430, Until Discontinued, Routine Given 06/25/2025 8:30 AM EDT 1 packet Given 06/24/2025 10:43 PM EDT 1 packet Given 06/24/2025 8:32 AM EDT 1 packet labetalol (Normodyne,Trandate) injection 10 mg 10 mg, Intravenous, Every 2 hour PRN, Starting on Mon06/17/25 at 2110, Until Mon06/25/25 at 2112, Routine, high blood pressure, SBP>180 lactulose (Chronulac) 10 GM/15ML solution 10 g 10 g, Oral, Daily, First dose on Mon06/20/25 at 0900, Until Discontinued, Routine Given 06/25/2025 8:31 AM EDT 10 g Given 06/24/2025 8:34 AM EDT 10 g Given 06/23/2025 8:31 AM EDT 10 g lidocaine (Lidoderm) 5 % patch 1 patch 1 patch, Apply externally, Every 24 hours, First dose on Mon06/12/25 at 2130, Until Discontinued, Administer over 12 Hours, Routine Medication Applied 06/20/2025 9:36 PM EDT 1 patch Abdominal Tissue Medication Applied 06/19/2025 9:44 PM EDT 1 patch Abdominal Tissue Medication Applied 06/18/2025 8:36 PM EDT 1 patch Left Lower Abdomen melatonin tablet 3 mg 3 mg, Oral, [...] Given 06/24/2025 2:53 PM EDT 750 mg ondansetron (Zofran) injection 4 mg 4 mg, Intravenous, Every 6 hours PRN, Starting on Mon06/12/25 at 2039, Until Mon06/25/25 at 2112, Routine, Recovery(Phase II-Outpatient)/On Unit(Inpatient), nausea, vomiting Given 06/24/2025 3:00 PM EDT 4 mg Protein Powder 2 packet 2 packet, Nasogastric, [...] Given 06/23/2025 8:31 AM EDT 100 mg documented in this encounter Active and Recently Administered Medications Times are shown in EDT. Scheduled Medication Order 06/23/2025 06/24/2025 06/25/2025 atorvastatin (Lipitor) tablet 10 mg 10 mg, Nasogastric, Nightly, First dose on Mon06/18/25 at 2100, Until Discontinued, Routine 214 (Given - Provider: Bianka Phillips RN) 2241 (Given - Provider: Gill White RN [...] Routine 0831 (Given - Provider: Samia Santos RN)2143 (Given - Provider: Bianka Phillips RN) 0833 [...] Routine 0916 (Given - Provider: Samia Santos RN)2143 (Given - Provider: Bianka Phillips RN) 0833 (Given - Provider: Jeff Gómez RN)224 (Given - Provider: Gill White RN - Comment: pt care) 08 (Given - Provider: Jeff Gómez, RN)2100 (Canceled [...] 08 (Given - Provider: Jeff Gómez, RN) Abiel powder 1 packet 1 packet, Nasogastric, 2 times daily, First dose on Mon06/17/25 at 1430, Until Discontinued, Routine 0832 (Given - Provider: Samia Santos RN)2099 (Not Given - Provider: Bianka Phillips RN - Reason: Patient/family refused) 0832 (Given - Provider: Jeff Gómez, RN)224 (Given [...] medication order) 0839 (Given - Provider: Jeff Gómez, RN)2251 (Given - Provider: Gill White RN [...] sleep 0008 (Given - Provider: Shanique Ruffin, TIERA)2234 (Given - Provider: Bianka Phillips, TIERA) ondansetron [...] 1: Insert peripheral IV (COMPLETED) Once, On Eunice 06/12/25 at 2040, For 1 occurrence, Recovery(Phase II-Outpatient)/On Unit(Inpatient) And Saline lock IV (CANCELED) Once, On Eunice 06/12/25 at 2040, For 1 occurrence, Recovery(Phase II-Outpatient)/On Unit(Inpatient) And sodium chloride 0.9 % flush 10 mLJump to med 10 mL, Intravenous, Every 12 hours, First dose on Eunice 06/12/25 at 2130, Until Discontinued, Routine, Recovery(Phase II-Outpatient)/On Unit(Inpatient) And sodium chloride 0.9 % flush 10 mLJump to med 10 mL, Intravenous, As needed, Starting on Eunice 06/12/25 at 2039, Until Mon06/25/25 at 2111, Routine, [...] documented as of this encounter Care Teams Train Braker Relationship Specialty Start Date End Date Murray Prajapati MD [address] [facility] [address] [place] [address] PCP - General 03/06/23 Jaja Camara APRN [address] [facility] [address] [place] [address] Referring Physician Gastroenterology 03/06/23 Dyllan Paul MD [id number] [place] [address] Surgeon Urology 04/29/25 documented as of this encounter
--- OUTSIDE RECORDS SUMMARY | 2025-06-12 14:42 | XMS_ITS | Encounter Summary ---
Author Organization [facility] Address [address] [place] [address] Care Team Providers Care Test Pilot Name Role Phone Murray Prajapati MD Primary Care Provider [phone] Jaja Camara PLAYGROUND OFFICIAL Unavailable [phone] StrDyllan goncalves MD Unavailable [phone] Reason for Visit * Auth/Cert (Routine) Specialty Diagnoses / Procedures Referred By Silverio barone Referred To Contact Diagnoses Prostate CA ([facility]) PROSTATE CANCER Procedures MO LAP,PROSTATECTOMY,RADICAL, W/NERVE SPARE,INCL ROBOTIC PROSTATECTOMY, RADICAL, ROBOT-ASSISTED StrDyllan goncalves MD [address] [facility] [address] [place] [address] Phone: tel: fax: [facility] [address] [place] [address] Phone: tel: Referral ID Status Reason Start Date Expiration Date Visits Re quested Visits Authorized [id number] 1 1 Encounter Details Date Type Department Care Team (Late st Contact Info) Description 06/12/2025 2:42 PM EDT Anesthesia Event [facility] [address] [place] [address] Afshin Reece MD [address] [place] [address] Mumtaz Pat DO [address] [place] [address] Anesthesia Record Procedure Summary Procedure Name Responsible Anesthesiologist Anesthesia Start Time Anesthesia Stop Time PROSTATECTOMY, RADICAL, ROBOT-ASSISTED (Abdomen) Afshin Reece MD 06/12/25 1442 06/12/252127 Events Date Time Event Comment 06/12/2025 0636 [...] Allan Surgeon ace sing blood pressure cuff 190 Allan 2025 Proc Fin 2058 Out of [...] acknowledgement of understanding. 2127 An Stop Meds Name Total fentaNYL (Sublimaze) injection 50 mcg/mL 150 mcg lidocaine PF (Xylocaine-MPF) 2% 100 mg propofol (Diprivan) injection 10 mg/mL 2 00 mg rocuronium (ZeMuron) injection 10 mg/mL 180 mg dexamethasone (Decadron) injection 4 mg/ mL 4 mg HYDROmorphone PF (Dilaudid) injection 1 mg/mL 1 mg phenylephrine (Timothy-Synephrine) prefilled syringe 1 mg/10 mL 400 mcg ondansetron (Zofran) injection 2 mg/mL 4 mg sugammadex (Bridion) injection 100 mg/mL 300 mg ceFAZolin (Ancef) vial 1 g 4 g glycopyrrolate (Robinul) injection 0.2 m g/mL 0.2 mg vasopressin (Vasostrict) injection 20 Un its/mL 3 Units calcium chloride injection 10% 1 g albuterol (Proventil, Ventolin, ProAir) inhaler 108 (90 BASE) mcg/act 8 puff lactated Ringer's infusion 3,600 mL * Agents Name O2 N2O Air Sevoflurane Isoflurane Desflurane Inspired Desflurane Inspired Isoflurane Inspired Sevoflurane N2O Inspired N2O * Blood Name Total PRBC 700 mL Lines, Drains, and Airways Type Details Placement Removal Wound 06/12/25; 1530; N; Y es; Surgical; Laparoscopic (4 trocar entry sites for laparoscopic prostatectomy + one midline incision, 06/12/2025, with Dr. Paul); Abdomen; Lower, Left, Right, Upper 06/12/25 153 by Estefany Singh RN Wound 06/12/25; 192; N; Y es; Surgical; Open Surg; Abdomen; Mid 06/12/251928 by Idalia Leonardo Peripheral IV Placement Date: 06/12/25; Placement Time: 1315; Catheter Size: 18 G; Orientation: Posterior, Right; Location: Hand; Site Prep: Chlorhexidine ; Local Anesth: Semmes; Technique: Anatomical landmarks; Inserted by: Belinda Ramirez; [...] Anatomical landmarks; Removal Date: 06/21/25; Removal Time: 08; Removal Reason: Per patient/family request 06/12/25 1518 by Mumtaz Pat DO 06/21/25 0800 by Samia Santos RN Urethral Catheter Placement Date: 06/12/25; Placement Time: 151; Inserted by: Gregory Galicia MD; Type: Double-lumen, Non-latex; Size: 18 Fr.; Urine Returned: Yes; Removal Date: 06/12/25; Removal Time: 18306/12/25 1518 by Estefany Singh RN 06/12/25 183 by Estefany Singh RN Urethral Catheter Placement Date: 06/12/25; Placement Time: 1831; Inserted by: ST Denis, under Dr. Paul's supervision; Type: Double-lumen, Non-latex; Size: 20 Fr.; Urine Returned: Yes; Removal Date: 06/24/25; Removal Time: 1030; Removal Reason: Other (Comment) (removed by urology) 06/12/25 183 by Estefany Singh RN 06/24/25 103 by Jeff Gómez RN Peripheral IV Placement Date: 06/12/25; Placement Time: 1853 (created via procedure documentation); Catheter Size: 16 G; Orientation: Right; Location: External Jugular; Technique: Ultrasound guidance; Inserted by: Dyllan Wong DO; Insertion Attempts: 1; Removal Date: 06/13/25; Removal Time: 1200; Removal Reason: Occluded 06/12/251853 by Dyllan Wong DO 06/13/25 1200 by Karen Ortiz RN Closed/Suction Drain 06/12/25; 1854; Yes ; 1; RUQ; Bulb; 10 Fr.; Other (Comment) (removed per provider) 06/12/251854 by Idalia Leonardo 06/22/25 1000 by Joe Rosa RN Arterial Line Placement Date: 06/12/25; Placement Time: 2124 (created via procedure documentation); Size: 20 G; Orientation: Right; Location: Radial; Inserted by: Resident; Securement: Taped; Patient Tolerance: Tolerated well; Removal Date: 06/18/25; Removal Time: 754; Removal Reason: Per order 06/12/252124 by Dyllan Wong, 06/18/25754 by Lesia Booth RN documented in this encounter Social History [...] as of this encounter Functional Status * Calculated C-SSRS Risk Score (Lifetime/Recent) Answer Date of Assessment Author No Risk Indicated 06/13/2025 7:45 AM EDT Karen Ortiz RN * Question Answer Date of Assessment Author 1. Wish to be (Past 1 Month) No 06/13/2025 7:45 AM EDT Karen Ortiz RN 2. Non-Specific Active Suicidal Thoughts (Past 1 Month) No 06/12/2025 12:41 PM EDT Erika Proctor RN 6. Suicidal Behavior (Lifetime) No 06/12/2025 12:41 PM EDT Erika Proctor RN documented as of this encounter Miscellaneous Notes * Anesthesia Postprocedure Evaluation - Dyllan Wong, - 06/12/2025 9:28 PM EDT Patient: Eber Lowe Anesthesia Type: general Vitals Value Taken Time BP 103/66 06/12/25 21:15 Temp 36.5 ??C (97.7 ??F) 06/12/25 21:06 Pulse 72 06/12/25 21:27 Resp 13 06/12/25 21:27 SpO2 94 % 07/24/25 21:27 Vitals shown include unfiled device data. Anesthesia Post Evaluation Patient location during evaluation: PACU Patient participation: complete - patient cannot participate Level of consciousness: sedated (GCS 4/6/1) Pain management: adequate (pain score 0-3) Airway patency: endotracheal device Cardiovascular status: acceptable and hemodynamically stable Respiratory status: acceptable, ventilator and ETT Hydration status: acceptable Nausea/Vomiting: No No notable events documented. Cosigned by Ulises Sandoval MD at 06/13/2025 6:51 PM EDT Associated attestation - Ulises Sandoval MD - 06/13/2025 6:51 PM EDT I agree with the findings and care plan documented in the postprocedure evaluation note. * Anesthesia Procedure Notes - Dyllan Wong DO - 06/12/2025 9:25 PM EDT Associated Order(s): Arterial Line Arterial Line: An arterial line was placed. Procedure performed using ultrasound guidance in the PACU for the following indication(s): continuous blood pressure monitoring. Ultrasound was used to visualize vascular needle entry into the radial artery AND ultrasound image was retained. A 20 gauge (size), 1 and 3/4 inch (length), Arrow (type) catheter was placed into the Right radial artery and secured by tape. Seldinger technique used Events: patient tolerated procedure well with no complications. Staffing Performed: Resident Anesthesiologist: Ulises Sandoval MD Resident: Dyllan Wong DO Cosigned by Ulises Sandoval MD at 06/12/2025 9:29 PM EDT Associated attestation - Ulises Sandoval MD - 06/12/2025 9:29 PM EDT I was present during all critical and torres portions of the procedure(s) and immediately available tofurnish services the entire duration. See resident note for details. * Anesthesia Procedure Notes - Dyllan Wong DO - 06/12/2025 7:32 PM EDT Associated Order(s): Peripheral IV Peripheral IV Date/Time: 06/12/2025 6:54 PM Inserted by: Dyllan Wong DO Placement Needle size: 16 G Location: external jugular Site prep: alcohol Technique: ultrasound guided Attempts: 1 Cosigned by Afshin Reece MD at 06/12/2025 7:35 PM EDT Associated attestation - Afshin Reece MD - 06/12/2025 7:35 PM EDT I was present during all critical and torres portions of the procedure(s) and immediately available tofurnish services the entire duration. See resident note for details. * Anesthesia Procedure Notes - Mumtaz Pat DO - 06/12/2025 3:17 PM EDT Associated Order(s): Peripheral IV Peripheral IV Placement Needle size: 18 G Location: arm Site prep: alcohol Technique: anatomical landmarks Cosigned by Reyna Houston MD at 06/12/2025 4:40 PM EDT Associated attestation - Reyna Houston MD - 06/12/2025 4:40 PM EDT I was present during all critical and torres portions of the procedure(s) and immediately available tofurnish services the entire duration. See resident note for details. * Anesthesia Procedure Notes - Mumtaz Pat DO - 06/12/2025 3:14 PM EDT Associated Order(s): Airway Airway Date/Time: 06/12/2025 2:50 PM Reason: elective Airway not difficult General Information and Staff Patient location during procedure: OR Anesthesiologist: Reyna Houston MD Resident: Mumtaz Pat DO Performed: Resident Patient Condition Indications for airway management: anesthesia Patient position: sniffing Final Airway Details Final airway type: endotracheal airway Successful airway: ETT Cuffed: yes Successful intubation technique: direct laryngoscopy Adjuncts used in placement: intubating stylet and Bougie Endotracheal tube insertion site: oral Blade: Wilfrid Blade size: #3 ETT size (mm): 8.0 Cormack-Lehane Classification: grade IIb - view of arytenoids or posterior of glottis only Placement verified by: chest auscultation and capnometry Measured from: lips Additional Comments Bilateral Breath Sounds, (+) ETCO2, Atraumatic, No change to dentition. Cosigned by Reyna Houston MD at 06/12/2025 4:40 PM EDT Associated attestation - Reyna Houston MD - 06/12/2025 4:40 PM EDT I was present during all critical and torres portions of the procedure(s) and immediately available [facility] services the entire duration. See resident note for details. * Anesthesia Preprocedure Evaluation - Reyna Houston MD - 06/12/2025 6:35 AM EDT Images from the original note were not included. DELON Lowe is a 70 y.o. male who presents with Pre-op Diagnosis * Prostate CA (CMS/HCC) [C61] now scheduled for PROSTATECTOMY, RADICAL, ROBOT- ASSISTED (N/A)with Dyllan Paul MD on 06/12/2025 at [facility]. Past Medical History[1] Family History[2] Social History[3] denies tobacco, etoh, illicit drugs SURGICAL HISTORY: Surgical History[4] ccy, back lipoma, UHR, Knee scope Allergies[5] NKDA MEDICATIONS: Current Medications[6] ROS Anesthesia: Date of last anesthetic: ~ 2009. history of previous anesthesia. Does not have a history of anesthetic complications and obstructivesleep apnea. Cardiovascular: hyperlipidemia. Does not have angina, CAD, CHF, dysrhythmias, pacemaker or past DC. hypertension: Exercise tolerance is 2 flights of stairs. Cardio additional comments: Denies any active current cardiac complaints.. Respiratory: Negative respiratory ROS.Does not have home oxygen. no asthma: no COPD: Has not had an upper respiratory infection in last 30 days. Has not had pneumonia in the last 30 days or COVID in the last 30 days. HEENT: Negative HEENT ROS.Does not have loose teeth. Neurological: Negative neuro ROS. no seizures: Did not have a cerebrovascular accident. Musculoskeletal: Does not have cervical spine limited mobility. [facility] additional comments: Recent skin cancer excised from leg. Gastrointestinal: Does not have GERD (rare.).cirrhosis (stable per pt.). Does not have ascites. [...] 03/28/2025 INR 1.4 (H) 04/11/2023 Visit Vitals Smoking Status Never Physical Exam Airway Mallampati: III Mouth opening: normal TM distance: >3 FB Neck ROM: full Cardiovascular Rhythm: regular Rate: normal Dental - normal exam Pulmonary Breath sounds clear to auscultation Neurological Oriented: normal to time, normal to person and normal to place Skin Musculoskeletal Extremities Anesthesia Plan ASA 3 Plan was reviewed with: resident Anesthesia technique(s) discussed with the patient/family: general Anesthesia plan agreed upon was: general Comment: AZEEM phone screen. Anesthetic plan and risks discussed with patient. Use of blood products discussed with patient who. Reyna Houston MD [1] Past Medical History: Diagnosis Date Cancer ([facility]) january 26, 2025 Cirrhosis ([facility]) 2021 History of methicillin resistant Staphylococcus aureus [...] HERNIA REPAIR [5] No Known Allergies [6] No current facility-administered medications for this encounter. Current Outpatient Medications: atorvastatin, Take 1 tablet by mouth daily. carvedilol, Take 1 tablet by mouth 2 times a day. clobetasol, as needed. DIPHENHYDRAMINE HCL, SLEEP, PO, Take 16 mg by mouth at night if needed (sleep). furosemide, Take 1 tablet by mouth daily. ketoconazole, as needed. ketoconazole, Melatonin, Take 10 mg by mouth at night if needed for sleep. (Patient not taking: Reported on 04/29/2025) uklprpystiyq-bper-qqcuvvad-folic acid, Chew 1 tablet daily. potassium chloride CR, Take 1 tablet by mouth daily. Do not crush, chew, or split. psyllium, Take 1 packet by mouth daily. triamcinolone, Apply 1 Application topically as needed. Vitamin E, Take 1,000 Units by mouth 1 (one) time each day. documented in this encounter Plan of Treatment Upcoming Encounters Date Type Department Care Team (Latest Contact Info) Description 08/14/2025 12:25 PM EDT Hospital Encounter [facility] Operating Room [address] [place] [address] Dyllan Paul MD [id number] [place] [address] 08/14/2025 12:25 PM EDT - 08/14/2025 1:55 PM EDT Surgery [facility] Operating Room [address] [place] [address] Dyllan Paul MD [address] [facility] [address] [place] [address] URETEROSCOPY, WITH LASER LITHOTRIPSY [[id number] (CPT )] 10/28/2025 8:00 AM EST Office Visit [facility] [address] [place] [address] Pavan Aldrich MD [address] [facility] [address] [place] [address] Scheduled Procedures Name Priority Associated Diagnoses Date/Ti me URETEROSCOPY, WITH LASER LITHOTRIPSY Ureteral stone 08/14/2025 12:25 PM EDT documented as of this encounter Procedures Procedure Name Priority Date/Time Associated Diagnosis Comments PB POINT OF CARE IMAGING PLACEHOLDER Routine 06/12/2025 9:25 PM EDT PB ANESTHESIA NON-TIMED PROCEDURE PLACEHOLDER Routine 06/12/2025 9:25 PM EDT ANESTHESIA ULTRASOUND GUIDED Routine 06/12/2025 6:54 PM EDT ANESTHESIA PERIPHERAL IV PLACEMENT Routine 06/12/2025 3:17 PM EDT PB ANESTHESIA PLACEHOLDER Routine 06/12/2025 2:50 PM EDT MO AN ELECTIVE ENDOTRACHEAL AIRWAY Routine 06/12/2025 2:50 PM EDT documented in this encounter Results * PB ANESTHESIA NON-TIMED PROCEDURE PLACEHOLDER, PB POINT OF CARE IMAGING PLACEHOLDER (06/12/2025 9:25 PM EDT) Narrative Ulises Sandoval MD - 06/12/2025 9:25 PM EDT Ulises Sandoval MD 06/12/2025 9:29 PM Arterial Line: An arterial line was placed. Procedure performed using ultrasound guidance in the PACU for the following indication(s): continuous blood pressure monitoring. Ultrasound was used to visualize vascular needle entry into the radial artery AND ultrasound image was retained. A 20 gauge (size), 1 and 3/4 inch (length), Arrow (type) catheter was placed into the Right radial artery and secured by tape. Seldinger technique used Events: patient tolerated procedure well with no complications. Staffing Performed: Resident Anesthesiologist: Ulises Sandoval MD Resident: Dyllan Wong DO us Afshin Reece MD ANESTHESIA ORDERABLES Final R esult * ANESTHESIA ULTRASOUND GUIDED (06/12/2025 6:54 PM EDT) Afshin Farr MD - 06/12/2025 6:54 PM EDT Afshin Reece MD 06/12/2025 7:35 PM Peripheral IV Date/Time: 06/12/2025 6:54 PM Inserted by: Dyllan Wong DO Placement Needle size: 16 G Location: external jugular Site prep: alcohol Technique: ultrasound guided Attempts: 1 us Afshin Reece MD ANESTHESIA ORDERABLES Final R esult * Peripheral IV (06/12/2025 3:17 PM EDT) Reyna Erazo MD - 06/12/2025 3:17 PM EDT Reyna Houston MD 06/12/2025 4:40 PM Peripheral IV Placement Needle size: 18 G Location: arm Site prep: alcohol Technique: anatomical landmarks Result [facility] Reyna Houston MD ANESTHESIA ORDERABLES Final R esult * MO AN ELECTIVE ENDOTRACHEAL AIRWAY, PB ANESTHESIA PLACEHOLDER (06/12/2025 2:50 PM EDT) Narrative Reyna Houston MD - 06/12/2025 2:50 PM EDT Reyna Houston MD 06/12/2025 4:40 PM Airway Date/Time: 06/12/2025 2:50 PM Reason: elective Airway not difficult General Information and Staff Patient location during procedure: OR Anesthesiologist: Reyna Houston MD Resident: Mumtaz Pat DO Performed: Resident Patient Condition Indications for airway management: anesthesia Patient position: sniffing Final Airway Details Final airway type: endotracheal airway Successful airway: ETT Cuffed: yes Successful intubation technique: direct laryngoscopy Adjuncts used in placement: intubating stylet and Bougie Endotracheal tube insertion site: oral Blade: Wilfrid Blade size: #3 ETT size (mm): 8.0 Cormack-Lehane Classification: grade IIb - view of arytenoids or posterior of glottis only Placement verified by: chest auscultation and capnometry Measured from: lips Additional Comments Bilateral Breath Sounds, (+) ETCO2, Atraumatic, No change to dentition. Result [facility] Reyna Houston MD ANESTHESIA ORDERABLES Final R esult documented in this encounter Visit Diagnoses Not on filedocumented in this encounter Administered Medications Inactive Administered Medications - up to 3 most recent administrations Medication Order MAR Action Action Date Dose Rate Site albuterol 108 (90 Base) MCG/ACT inhaler Inhalation, As needed, Starting on Eunice 06/12/25 at 2039, Until Eunice 06/12/25 at 2136, Routine, Anesthesia Intraprocedure Given 06/12/2025 8:44 PM EDT 4 puffs Given 06/12/2025 8:40 PM EDT 4 puffs calcium chloride 10 % injection Intravenous, As needed, Starting on Eunice 06/12/25 at 1934, Until Eunice 06/12/25 at 2127, Routine, Anesthesia Intraprocedure Given 06/12/2025 7:39 PM EDT 0.5 g Given 06/12/2025 7:34 PM EDT 0.5 g ceFAZolin (Ancef) injection Intravenous, As needed, Starting on Eunice 06/12/25 at 1518, Until Eunice 06/12/25 at 2127, Routine, Anesthesia Intraprocedure Given 06/12/2025 7:17 PM EDT 2 g Given 06/12/2025 3:18 PM EDT 2 g dexamethasone (Decadron) injection Intravenous, As needed, Starting on Eunice 06/12/25 at 1513, Until Eunice 06/12/25 at 2127, Routine, Anesthesia Intraprocedure Given 06/12/2025 3:13 PM EDT 4 mg fentaNYL (Sublimaze) injection Intravenous, As needed, Starting on Eunice 06/12/25 at 1447, Until Eunice 06/12/25 at 2127, Routine, Anesthesia Intraprocedure Given 06/12/2025 6:07 PM EDT 25 mcg Given 06/12/2025 5:35 PM EDT 25 mcg Given 06/12/2025 2:47 PM EDT 100 mcg glycopyrrolate (Robinul) injection Intravenous, As needed, Starting on Eunice 06/12/25 at 1526, Until Eunice 06/12/25 at 2127, Routine, Anesthesia Intraprocedure Given 06/12/2025 3:26 PM EDT 0.2 mg HYDROmorphone PF (Dilaudid) injection Intravenous, As needed, Starting on Eunice 06/12/25 at 1823, Until Eunice 06/12/25 at 2127, Routine, Anesthesia Intraprocedure Given 06/12/2025 6:35 PM EDT 0.5 mg Given 06/12/2025 6:23 PM EDT 0.5 mg lactated Ringer's infusion Intravenous, Continuous PRN, Starting on Eunice 06/12/25 at 1442, Until Eunice 06/12/25 at 2127, Routine New Bag 06/12/2025 6:11 PM EDT New Bag 06/12/2025 4:50 PM EDT New Bag 06/12/2025 2:42 PM EDT lidocaine PF (Xylocaine) 2 % injection Intravenous, As needed, Starting on Eunice 06/12/25 at 1447, Until Eunice 06/12/25 at 2127, Routine, Anesthesia Intraprocedure Given 06/12/2025 2:47 PM EDT 100 mg ondansetron (Zofran) injection Intravenous, As needed, Starting on Eunice 06/12/25 at 1838, Until Eunice 06/12/25 at 2127, Routine, Anesthesia Intraprocedure Given 06/12/2025 6:38 PM EDT 4 mg phenylephrine in NS (Timothy-Synephrine) 100 mcg/mL prefilled syringe Intravenous, As needed, Starting on Eunice 06/12/25 at 1606, Until Eunice 06/12/25 at 2127, Routine, Anesthesia Intraprocedure Given 06/12/2025 6:53 PM EDT 200 mcg Given 06/12/2025 4:16 PM EDT 100 mcg Given 06/12/2025 4:06 PM EDT 100 mcg propofol (Diprivan) injection Intravenous, As needed, Starting on Eunice 06/12/25 at 1447, Until Eunice 06/12/25 at 2127, Routine, Anesthesia Intraprocedure Given 06/12/2025 8:53 PM EDT 80 mg Given 06/12/2025 2:47 PM EDT 120 mg rocuronium (ZeMuron) injection Intravenous, As needed, Starting on Eunice 06/12/25 at 1447, Until Eunice 06/12/25 at 2127, Routine, Anesthesia Intraprocedure Given 06/12/2025 6:55 PM EDT 30 mg Given 06/12/2025 5:52 PM EDT 20 mg Given 06/12/2025 5:16 PM EDT 20 mg sugammadex (Bridion) 100 MG/ML injection Intravenous, As needed, Starting on Eunice 06/12/25 at 2028, Until Eunice 06/12/25 at 2127, Routine, Anesthesia Intraprocedure Given 06/12/2025 8:32 PM EDT 100 mg Given 06/12/2025 8:29 PM EDT 100 mg Given 06/12/2025 8:28 PM EDT 100 mg Transfuse RBC Routine New Bag 06/12/2025 7:02 PM EDT Transfuse RBC Routine New Bag 06/12/2025 7:15 PM EDT vasopressin (Vasostrict) injection Subcutaneous, As needed, Starting on Eunice 06/12/25 at 1909, Until Eunice 06/12/25 at 2128, Routine, Anesthesia Intraprocedure Given 06/12/2025 7:59 PM EDT 1 U nits Given 06/12/2025 7:42 PM EDT 1 Units Given 06/12/2025 7:09 PM EDT 1 Units documented in this encounter Additional Health Concerns [...] documented as of this encounter Care Teams Test Pilot Relationship Specialty Start Date End Date Murray Prajapati MD [address] [place] [address] PCP - General 03/06/23 Jaja Camara APRN [address] [place] [address] [address] [place] [address] Referring Physician Gastroenterology 03/06/23 Dyllan Paul MD [address] [facility] [address] [place] [address] Surgeon Urology 04/29/25 documented as of this encounter
--- OUTSIDE RECORDS SUMMARY | 2025-06-28 21:28 | XMS_ITS | Encounter Summary ---
Author Organization [facility] Address [address] [id number] Care Team Providers Care Sole Layer Hand Name Role Phone Murray Prajapati MD Primary Care Provider Jaja Camara VACUUM EVAPORATION OPERATOR Unavailable [phone] Dyllan Paul MD Unavailable [phone] Marlin Martinez RN Unavailable Unavailable Reason for Referral * Consultation (Routine) - Authorized Specialty Diagnoses / Procedures Referred By Silverio barone Referred To Contact Gastroenterology Diagnoses Right ureteral stone Cirrhosis of liver with ascites, unspecified hepatic cirrhosis type (CMS/HCC) Quentin Anderson MD [address] [place] [address] Phone: tel: fax: [facility] [address] [place] [address] Phone: tel: fax: Referral ID Status Reason Start Date Expiration Date Visits Requested Visits Authorized [id number] Authorized Specialty Services Required 07/04/2025 01/03/2027 1 1 * Consultation (Routine) - Authorized Specialty Diagnoses / Procedures Referred By Silverio barone Referred To Contact Urology Diagnoses Right ureteral stone Cirrhosis of liver with ascites, unspecified hepatic cirrhosis type (CMS/HCC) Quentin Anderson MD [address] [place] [address] Phone: tel: fax: [facility] [address] [place] [address] Phone: tel: fax: Referral ID Status Reason Start Date Expiration Date Visits Requested Visits Authorized [id number] Authorized Specialty Services Required 07/04/2025 01/03/2027 1 1 Reason for Visit * Reason Comments Fever Post-op Problem Fatigue * Auth/Cert (Routine) Specialty Diagnoses / Procedures Referred By Contac t Referred To Contact Diagnoses Sepsis, localized, in operative wound (CMS/HCC) Lizzie Cadena MD [address] [place] [phone] Phone: tel: fax: [facility] [address] [place] [address] Referral ID Status Reason Start Date Expiration Date Visits Re quested Visits Authorized [id number] 1 1 Encounter Details Date Type Department Care Team (Latest Contact Info) Description 06/28/2025 9:28 PM EDT - 07/04/2025 2:50 PM EDT Hospital Encounter [facility] [address] [place] [address] Rg Coleman MD [address] [place] [address] Kj Santos MD [address] [place] [address] Lizzie Cadena MD [address] [place] [address] Lizzie Biggs MD [address] [place] [address] Quentin Anderson MD [address] [place] [address] Lamberto Sales MD [address] [place] [address] Febrile illness (Primary Dx); Hypotension, [...] any time in the past 12 m [facility], were you homeless or living in a group home (including now)? No 06/16/2025 CAGE ASSESSMENT Answer Date Recorded Cage unable to access Not on file 06/28/2025 Maximum number of drinks you had on a given occasion in the last month? 0 drinks 06/28/2025 How many alcoholic Beverages do you typically drink in a week? 0 - 7 per week 06/28/2025 Have you ever felt you should CUT down on your d rinking? 0 06/28/2025 Have you been ANNOYED by peo ple criticizing your drinking? 0 06/28/2025 Have you felt GUILTY about your drinking? 0 06/28/2025 Have you had a drink first t rafy in the morning (EYE-BELL RINGER) to steady your nerves or to get rid of a hangover? 0 06/28/2025 CAGE Questionnaire Score 0 025 Utilities Answer Date Recorded In the past [...] Date of Assessment Author No Risk Indicated 07/04/2025 8:00 AM EDT Ju Casiano RN * Question Answer Date of Assessment Author 1. Wish to be (Past 1 Month) No 07/04/2025 8:00 AM EDT Ju Herrera RN 2. Non-Specific Active Suici tyra Thoughts (Past 1 Month) No 07/04/2025 8:00 AM EDT Anayeli Herrera RN 6. Suicidal Behavior (Lifetime) No 8:00 AM EDT Ju Herrera RN documented as of this encounter Medications at Time of Discharge acetaminophen (Tylenol) 500 MG tablet Take 1 tablet by mouth every 8 hours as needed for pain. 60 tablet 07/04/2025 5 atorvastatin (Lipitor) 10 MG tablet Take 1 tablet by mouth daily. carvedilol (Coreg) 3.125 MG tabletIndications :Esophageal varices without bleeding, unspecified esophageal varices type (CMS/HCC) Take 1 tablet by mouth 2 times a day. 60 tablet 2 03/28/2025 enoxaparin (Lovenox) 120 MG/0.8ML solution prefilled syringe Inject 0.8 mL under the skin every 12 hours. 180 each 06/25/2025 5 furosemide (Lasix) 40 MG tablet Take 1 tablet by mouth 2 times a day. methocarbamol (Robaxin) 750 MG tablet Take 1 tablet by mouth 4 times a day as needed for muscle spasms. 120 tablet 06/25/2025 miconazole (Micotin) 2 % powder Apply to affected areas 43 g 1 07/04/2025 multivitamin-iron -minerals-folic acid (Centrum) chewable tablet Chew 1 tablet daily. naloxone (Narcan) 4 mg/0.1 mL nasal spray 1. Give 1 spray in nostril for no/slow breathing or cannot wake after opioid use 2. Call 911 3. Repeat in other nostril if symptoms continue 1 each 07/04/2025 tamsulosin (Flomax) 0.4 MG 24 hr capsule Take 1 capsule by mouth 1 time each day with dinner. 30 capsule 06/25/2025 5 Vitamin E 450 MG (1000 UT) capsule Take 1,000 Units by mouth 1 (one) time each day. fluconazole (Diflucan) 200 MG tabletIndications :Right ureteral [...] to 3 days. 12 tablet 07/04/2025 5 lactulose (Chronulac) 10 GM/15ML solution Take 15 mL by mouth daily. 473 mL 1 06/26/2025 5 documented as of this encounter Miscellaneous Notes * Discharge Summary - Quentin Anderson MD - 07/04/2025 2:50 PM EDT [facility] MEDICINE DISCHARGE SUMMARY Hospitalization Admit Date/Time: 06/28/2025 9:28 PM Admitting Attending: Lizzie Cadena Discharge Date: 07/04/2025 Discharge Attending Physician: Quentin Anderson MD PCP name and Address: Murray Prajapati MD [facility] [address] / [place] [address] Referring provider name and address: No referring [...] known as: Micotin Apply to affected areas rzmildvpgbxt-uzcq-qbqlxegd-folic acid chewable tablet Chew 1 tablet daily. [...] Your Medications These medications were sent to [facility] - [place], [place] - [address] [facility] [id number] acetaminophen 500 MG tablet fluconazole 200 MG [...] A 07/22/2025 8:45 AM Dyllan Paul MD [facility] Test Results Pending At Discharge Pending Labs [...] preparation for this discharge. Quentin Anderson MD, [facility], FACP Ground Instructor Basic Division of Hospital Medicine * Progress Notes - Bianka Hansen MD - 07/04/2025 2:06 PM EDT [facility] Urology Inpatient Progress Note Primary Attending: [...] Hansen MD Department of Urology, PGY-1 Pager: [phone] Cosigned by Dyllan Paul MD at 07/07/2025 7:10 PM EDT Associated attestation - Dyllan Paul MD - 07/07/2025 7:10 PM EDT I saw and evaluated the patient. I discussed the case with the resident/fellow and agree with the findings and plan as documented. * Nursing Note - Ju Herrera RN - 07/04/2025 2:00 PM EDT Patient AVS summary printed and discharge education provided. [id number] delivered at bedside. PIVs removed with tips intact. PT currently en route to discharge [facility] where his will pick him up and [...] Intervention: Prevent Skin Injury Flowsheets (Taken 07/04/2025 115) Body Position: turned Skin Protection: protective footwear [...] Intervention: Provide Person-Centered Care Flowsheets (Taken 07/03/2025 000 by Marielena Munoz, TIERA) Trust Relationship/Rapport: care explained choices provided Problem: Skin Injury Risk Increased Goal: Skin Health and Integrity Intervention: Optimize Skin Protection Flowsheets Taken 07/04/20251158 by Ju Herrera, RN Skin Protection: protective footwear used Head of Bed (HOB) Positioning: HOB at 30-45 degrees Taken 07/03/2025 1850 by Jackeline Deleon, RN Activity Management: activity adjusted per tolerance Taken 07/03/2025 0006 by Marielena Munoz RN Pressure Reduction Techniques: frequent weight shift encouraged Problem: Fall Injury Risk Goal: Absence of Fall and Fall-Related Injury Intervention: Identify and Manage Contributors Flowsheets Taken 07/04/2025 1159 by Ju Herrera RN Self-Care Promotion: meal set-up provided adaptive equipment use encouraged Taken 07/03/2025 1117 by Jing Field river rat Review/Management: medications reviewed Problem: Fall Injury Risk Goal: Absence of Fall and Fall-Related Injury Intervention: Promote Injury-Free Environment Flowsheets (Taken 07/04/2025 1000) Safety Promotion/Fall Prevention: clutter-free environment maintained lighting adjusted room organization consistent safety round/check completed Problem: Pain Acute Goal: Optimal Pain Control and Function Intervention: Prevent or Manage Pain Flowsheets (Taken 07/03/2025 1117 by Jing Field, RN) Sensory Stimulation Regulation: care clustered Bowel Elimination Promotion: ambulation promoted Problem: Functional Deficit Goal: Improved Balance and Postural Control Intervention: Optimize Balance and Safe Activity Flowsheets Taken 07/04/2025 1159 by Ju Herrera [...] Daily Living Intervention: Promote Activity and Functional [place] Flowsheets Taken 07/04/2025 1159 by Ju Herrera [...] IV on 07/04/25 at 3:02 PM. * Ju Adamson RN - 07/04/2025 11:54 AM EDT Images from the original note were not included. [id number] Using an Incentive Spirometer An incentive spirometer [...] rate Last Reviewed Date: 2025 00:00:00 ?? [id number] [employer]. All rights reserved. This information is not intended as a substitute for professional medical care. Always follow your healthcare professional's instructions. * Laury SolorioMIRTHA - Ju Herrera RN - 07/04/2025 11:53 AM EDT Images [...] the video go to this web address: [email or web address] Or, scan this QR code with your smart phone Last Reviewed Date: 2020 00:00:00 ?? [id number] [employer]. All rights reserved. This information is not intended as a substitute for professional medical care. Always follow your healthcare professional's instructions. * Laury Espino - Ju Herrera RN - 07/04/2025 11:53 AM EDT Images [...] Note Scout Lowe 70 y.o. male CSN: [id number] Admission: 06/28/2025 9:28 PM Primary Problem: Sepsis, localized, in operative wound (CMS/HCC) Primary Assessment Coordinator: Primary Caregiver: Self Assistance Available at Discharge: Availability of Care Givers (#Hours): 24 hours Family/Assessment Coordinator(s) Willingness Assessed to care for patient at home: Yes (pt's present at bedside) Family/Assessment Coordinator(s) Readiness Assessed to care for patient at [...] RN Progress: improving Taken 07/03/20252051 by Jackeline Deleon, RN Plan of Care Reviewed With: patient [...] Identify and Manage Fall Risk Flowsheets (Taken 07/03/20251116 by Jing Field, TIERA) Safety Promotion/Fall Prevention: activity supervised Intervention: Prevent Skin Injury Flowsheets (Taken 07/03/20251849 by Jackeline Deleon, RN) Body Position: foot of bed elevated neutral body alignment Skin Protection: transparent dressing maintained protective footwear used Intervention: Prevent and Manage VTE (Venous Thromboembolism) Risk Flowsheets (Taken 07/03/20251914 by Jackeline Deleon, RN) VTE Prevention/Management: bilateral lower extremity SCDs (sequential compression devices) on Intervention: Prevent Infection Flowsheets (Taken 07/03/20251116 by Jing Field, RN) Infection Prevention: environmental surveillance performed Goal: Optimal Comfort and Wellbeing Outcome: Ongoing, Progressing Intervention: Monitor Pain and Promote Comfort Flowsheets (Taken 07/03/20252226) Pain Management Interventions: medication (see MAR) Intervention: Provide Person-Centered Care Flowsheets (Taken 07/03/20255 by Marielena Munoz, TIERA) Trust Relationship/Rapport: care explained choices provided Problem: Skin Injury Risk Increased Goal: Skin Health and Integrity Outcome: Ongoing, Progressing Intervention: Optimize Skin Protection Flowsheets Taken 07/03/20251849 by Jackeline Deleon, RN Activity Management: activity adjusted per tolerance Taken 07/03/20255 by Marielena Munoz, RN Pressure Reduction Techniques: frequent weight shift encouraged Intervention: Promote and Optimize Oral Intake Flowsheets (Taken 07/03/20255 by Marielena Munoz, TIERA) Oral Nutrition Promotion: social interaction promoted Nutrition Interventions: supplemental drinks provided Problem: Infection Goal: Absence of Infection Signs and Symptoms Outcome: Ongoing, Progressing Intervention: Prevent or Manage Infection Flowsheets Taken 07/03/20251116 by Jing Field RN Fever Reduction/Comfort Measures: lightweight bedding Taken 07/03/2025 000 by Marielena Munoz, TIERA Infection Management: aseptic technique maintained Isolation Precautions: precautions maintained Problem: Fall Injury Risk Goal: Absence of Fall and Fall-Related Injury Outcome: Ongoing, Progressing Intervention: Identify and Manage Contributors Flowsheets (Taken 07/03/20251116 by Jing Field, RN) Medication Review/Management: medications reviewed Self-Care Promotion: independence encouraged Intervention: Promote Injury-Free Environment Flowsheets (Taken 07/03/20251116 by Jing Field, TIERA) Safety Promotion/Fall Prevention: activity supervised Problem: Pain Acute Goal: Optimal Pain Control and Function Outcome: Ongoing, Progressing Intervention: Prevent or Manage Pain Flowsheets Taken 07/03/20251116 by Jing Field RN Sensory Stimulation Regulation: care clustered Bowel Elimination Promotion: ambulation promoted Sleep/Rest Enhancement: awakenings minimized Medication Review/Management: medications reviewed Taken 07/03/2025 000 by Marielena Munoz RN Complementary Therapy: music therapy provided Problem: Functional Deficit Goal: Improved Balance and Postural Control Outcome: Ongoing, Progressing Intervention: Optimize Balance and Safe Activity Flowsheets Taken 07/03/20251849 by Jackeline Deleon, TIERA Activity Management: activity adjusted per tolerance Taken 07/03/20251116 by Jing Field RN Safety Promotion/Fall Prevention: activity supervised Self-Care Promotion: independence encouraged Problem: Self-Care Deficit Goal: Improved Ability to Complete Activities of Daily Living Outcome: Ongoing, Progressing Intervention: Promote Activity and Functional [place] Flowsheets (Taken 07/03/20251116 by Jing Field, TIERA) Activity Assistance Provided: [...] Postoperative Diagnosis: Same Surgeon: Dyllan Paul MD Sponsorship Coordinator Surgeon: Sherry Santos MD Intraoperative Findings: Intraoperative [...] Anderson MD - 07/03/2025 3:07 PM EDT [facility] MEDICINE PROGRESS NOTE HPI: 70 y.o. [...] chloride, 10 mL, PRN Quentin Anderson MD, [facility], FACP Ground Instructor Basic Division of Hospital Medicine * Care Plan - Jing Field RN - 07/03/2025 11:21 AM EDT Problem: Adult Inpatient Plan of Care Goal: Plan of Care Review Outcome: Ongoing, Progressing Flowsheets Taken 07/03/20251116 by Jing Field RN Progress: improving Plan [...] Identify and Manage Fall Risk Flowsheets (Taken 07/03/20251116) Safety Promotion/Fall Prevention: activity supervised Intervention: Prevent [...] Optimize Balance and Safe Activity Flowsheets (Taken 07/03/20251116) Activity Management: activity encouraged Safety Promotion/Fall Prevention: activity supervised Self-Care Promotion: independence encouraged Problem: Self-Care Deficit Goal: Improved Ability to Complete Activities of Daily Living Outcome: Ongoing, Progressing Intervention: Promote Activity and Functional [place] Flowsheets (Taken 07/03/20251116) Activity Assistance Provided: assistance, stand-by Self-Care Promotion: [...] Ongoing, Progressing Intervention: Promote Activity and Functional [place] Flowsheets (Taken 07/03/20255) Activity Assistance Provided: assistance, [...] Anderson MD - 07/02/2025 3:24 PM EDT [facility] MEDICINE PROGRESS NOTE HPI: 70 y.o. [...] chloride, 10 mL, PRN Quentin Anderson MD, [facility], FACP Ground Instructor Basic Division of Hospital Medicine * Care Plan [...] and Manage Fall Risk Flowsheets (Taken 07/02/2025 1045) Safety Promotion/Fall Prevention: activity supervised Intervention: Prevent Skin Injury Flowsheets Taken 07/02/2025 0800 by Jing Field RN Body Position: turned heels elevated Taken 07/01/2025 2332 by Marielena Munoz RN Skin Protection: incontinence pads utilized Intervention: Prevent and Manage VTE (Venous Thromboembolism) Risk Flowsheets (Taken 07/02/2025 1045) VTE Prevention/Management: medication Intervention: Prevent Infection Flowsheets [...] Identify and Manage Contributors Flowsheets (Taken 07/02/2025 104) Medication Review/Management: medications reviewed Self-Care Promotion: independence encouraged BADL personal objects within reach Intervention: Promote Injury-Free Environment Flowsheets (Taken 07/02/2025 104) Safety Promotion/Fall Prevention: activity supervised Problem: Pain Acute Goal: Optimal Pain Control and Function Outcome: Ongoing, Progressing Intervention: Develop Pain Management Plan Flowsheets (Taken 07/02/2025 104) Pain Management Interventions: medication (see MAR) Intervention: Prevent or Manage Pain Flowsheets (Taken 07/02/2025 104) Sensory Stimulation Regulation: care clustered Bowel Elimination Promotion: ambulation promoted Sleep/Rest Enhancement: awakenings minimized Medication Review/Management: medications reviewed Problem: Functional Deficit Goal: Improved Balance and Postural Control Outcome: Ongoing, Progressing Intervention: Optimize Balance and Safe Activity Flowsheets (Taken 07/02/2025 104) Activity Management: activity adjusted per tolerance Safety Promotion/Fall Prevention: activity supervised Self-Care Promotion: independence encouraged BADL personal objects within reach Problem: Self-Care Deficit Goal: Improved Ability to Complete Activities of Daily Living Outcome: Ongoing, Progressing Intervention: Promote Activity and Functional [place] Flowsheets (Taken 07/02/2025 104) Self-Care Promotion: independence encouraged BADL personal objects [...] Ongoing, Progressing Intervention: Promote Activity and Functional [place] Flowsheets (Taken 07/01/20252331) Activity Assistance Provided: assistance, 2 people Self-Care Promotion: independence encouraged BADL personal objects within reach * Progress Notes - Pepito Iyer, PharmAkua - 07/01/2025 2:23 PM EDT Pharmacokinetic Consult [...] Anderson MD - 07/01/2025 2:05 PM EDT [facility] MEDICINE PROGRESS NOTE HPI: 70 y.o. [...] chloride, 10 mL, PRN Quentin Anderson MD, [facility], FACP Ground Instructor Basic Division of Hospital Medicine * Progress Notes - Richa Raymundo RN - 07/01/2025 1:30 PM EDT Case Management Adult Initial Progress Note Scout Lowe 70 y.o. male CSN: [id number] Admission: 06/28/2025 9:28 PM Primary Problem: Sepsis, localized, in operative wound (CMS/HCC) Rn Clinical Research reviewed chart and spoke with pt and patient's to complete this Initial Case Management Assessment. PCP: Murray Prajapati MD Emergency Contact: Extended Emergency Contact Information Primary Emergency Contact: MARILUZJAVON Mobile Relation: Spouse Salesperson Used Cars needed? No Insurance: Primary Visit Coverage Payer Plan Sponsor Code Group Number Group Name DANIKA GARNICA [facility] [facility] [id number] Primary Visit Coverage Subscriber Subscriber ID Subscriber Name Subscriber SSN Subscriber Address [id number] LOWERENNYJAVON J [id number] [place] [address] Secondary Visit Coverage Payer Plan Sponsor Code Group Number Group Name MEDICARE MEDICARE PART A ONLY Secondary Visit Coverage Subscriber Subscriber ID Subscriber Name Subscriber SSN Subscriber Address [id number] SCOUT LOWE [id number] [place] [address] Patient information: Primary Caregiver: Self Accompanied by/Relationship: Javon Support System: Immediate family Daily Living Activities: Functional Status: Independent Living Arrangements: Family Type of Residence: Single Level [address] [place] [address] Current DME: Equipment Currently Used at Home: walker, rolling, tub bench Anticipated Discharge Date: TBD Patient's Discharge Goal: to d/c home with his once medically appropriate Assistance Available at Discharge: as needed Discharge Transport: family Follow Up Transport: family Home Health / Home Infusion / Outpatient Dialysis Services: n/a Living Will/Advance Directive/Power of Electronic Equipment Trades Worker /Guardian: Have you reviewed your Advance Directive [...] tub bench. Pt's EC is his Javon, ph#[phone]. Pt was evaluated by PT/OT and currently has home w/assist recs and no DME. Per pt his family will provide him with transportation home at d/c and assistance as needed. RN CM will continue to follow and assist with d/c plan and as needed. Richa Raymundo RN * Progress Notes - Bianka Hansen MD - 07/01/2025 11:20 AM EDT [facility] Urology Inpatient Progress Note Primary Attending: [...] Urine culture growing 10-100k cfu/ml diutina rugosa. / Wound culture growing numerous polymorphonuclear leukocytes, rare [...] and pt's adequate urine output. Will con 1st pressman stenting pt on if he is not [...] Care Review Outcome: Ongoing, Progressing Flowsheets (Taken 07/01/2025 0751) Progress: improving Outcome Evaluation: patient will have adequate pain control during shift. Plan of Care Reviewed With: patient Goal: Patient-Specific Goal (Individualized) Outcome: Ongoing, Progressing Flowsheets Taken 07/01/2025 075 by Anastasia Starr RN Patient/Family-Specific Goals (Include [...] Progressing Intervention: Optimize Skin Protection Flowsheets Taken 07/01/2025 020 by Faby Paige RN Head of Bed (HOB) Positioning: HOB elevated Taken 06/30/20251999 by Faby Paige RN Activity Management: activity adjusted per tolerance activity encouraged Skin Protection: incontinence pads utilized Taken 06/29/2025 173 by Ole, Kassandra, RN Pressure Reduction Techniques: frequent weight shift encouraged heels elevated off bed Pressure Reduction Devices: specialty bed utilized Problem: Infection Goal: Absence of Infection Signs and Symptoms Outcome: Ongoing, Progressing Intervention: Prevent or Manage Infection Flowsheets Taken 06/30/20251999 by Faby Paige RN Isolation Precautions: protective Taken 06/29/20251737 by Kassandra Handy, RN Infection Management: aseptic technique maintained Fever Reduction/Comfort Measures: lightweight bedding lightweight clothing Problem: Fall Injury Risk Goal: Absence of Fall and Fall-Related Injury Outcome: Ongoing, Progressing Intervention: Identify and Manage Contributors Flowsheets (Taken 06/29/20251737 by Kassandra Handy, RN) Medication Review/Management: medications reviewed Self-Care Promotion: [...] Ongoing, Progressing Intervention: Promote Activity and Functional [place] Flowsheets Taken 06/30/20251999 by Faby Paige RN Activity Assistance Provided: assistance, 2 people Taken 06/29/20251737 by Kassandra Handy, TIERA Self-Care Promotion: independence [...] pressor support, who presented who [facility] on on 06/28/2025 with chief complaint of [...] - complicates all aspects of care Dr. Biggs [facility] Medicine * Progress Notes - Agatha Cruz, PharmD - 06/30/2025 3:21 PM EDT Pharmacokinetic [...] work-up of Sepsis, localized, in operative wound ([facility]). Problem List Active Hospital Problems Diagnosis Date Noted Sepsis, localized, in operative wound ([facility]/HCC) 06/29/2025 UTI (urinary tract infection) 06/29/2025 Hypotension 06/13/2025 Prostate CA ([facility]/HCC) 06/12/2025 Cirrhosis of liver ([facility]) 06/12/2025 Leukocytosis 06/12/2025 Hyperlipidemia 06/12/2025 Anemia 06/12/2025 Renal calculi 06/12/2025 Severe obesity (BMI 35.0-39.9) with comorbidity ([facility]) 06/03/2025 Procedures Past Medical History Patient has [...] a 70 y/o male who presents to [facility] with possible sepsis. Participants in Care Family/Caregiver [...] admission Level of Mobility: Ambulatory- community Mobility [place]: Independent gait without device History of Falls: [...] Mobility Bed Mobility Exam: Scooting/Bridging Level of [place]: Stand-by assist Physical/Nonphysical Assist: Supervision Bed Mobility Exam: Supine to Sit Level of [place]: Stand-by assist Physical/Nonphysical Assist: Supervision Transfers Transfer Exam: Sit to stand Level of [place]: Stand-by assist Assistive Device: Hand held assist Transfer Exam: Stand to Sit Level of [place]: Stand-by assist Physical/Nonphysical Assist: Supervision Assistive Device: Hand held assist Ambulation Device: No device Assistance: Standby assist Distance : 5 ft. to recliner Ambulation Comments: Patient demonstrates decreased ashley and step length with no loss of balance Standardized Assessments Standardized Assessments Standardized Assessments: [facility] 6-Clicks Mobility Assessment [facility] 6-Clicks Mobility Assessment Difficulty patient has [...] 3-5 steps with a railing?: A little [facility] 6-Clicks Mobility Assessment Total : 18 Standardized Assessments Standardized Assessments Standardized Assessments: [facility] 6-Clicks Mobility Assessment [facility] 6-Clicks Mobility Assessment Difficulty patient has [...] 3-5 steps with a railing?: A little [facility] 6-Clicks Mobility Assessment Total : 18 No [...] Hansen MD - 06/30/2025 1:15 PM EDT [facility] Urology Inpatient Progress Note Primary Attending: [...] days Lab Units 06/29/25 0200 COLOR UA [place] SPEC GRAV U 1.030 PH UA 5.5 [...] work-up of Sepsis, localized, in operative wound ([facility]). Problem List Active Hospital Problems Diagnosis Date Noted Sepsis, localized, in operative wound ([facility]) 06/29/2025 UTI (urinary tract infection) 06/29/2025 Hypotension 06/13/2025 Prostate CA ([facility]) 06/12/2025 Cirrhosis of liver ([facility]) 06/12/2025 Leukocytosis 06/12/2025 Hyperlipidemia 06/12/2025 Anemia 06/12/2025 Renal calculi 06/12/2025 Severe obesity (BMI 35.0-39.9) with comorbidity ([facility]) 06/03/2025 Procedures Past Medical History Patient has a past medical history of Cancer ([facility]) (january 26, 2025), Cirrhosis ([facility]) (2021),History of methicillin resistant Staphylococcus aureus (2011), [...] admission Level of Mobility: Ambulatory- community Mobility [place]: Independent gait without device History of Falls: [...] Mobility Bed Mobility Exam: Scooting/Bridging Level of [place]: Stand-by assist Physical/Nonphysical Assist: Supervision Bed Mobility Exam: Supine to Sit Level of [place]: Stand-by assist Physical/Nonphysical Assist: Supervision Transfers Transfer Exam: Sit to stand Level of [place]: Stand-by assist Assistive Device: Hand held assist Transfer Exam: Stand to Sit Level of [place]: Stand-by assist Physical/Nonphysical Assist: Supervision Assistive Device: Hand held assist Functional Mobility Device: No device Assistance: Standby assist Distance : 5 ft. to recliner Self-Care Interventions Lower Extremity Dressing Sock Level of Assistance: Maximum assistance LE Dressing Where Assessed: Bed level Toileting Toileting Adaptive Equipment: Catheterization equipment Toileting Level of Assistance: Dependent Where Assessed: Bed level Toileting Interventions: use of [employer] system Standardized Assessments [facility] 6-Click Daily Activities Help from Other: Don/Doff Regular Lower Body Clothings: Little Help From Other: Bathing: Little Help From Other: Toileting: Little Help From Other: Don/Doff Upper Body Clothings: None Help From Other: Grooming: None Help From Other: Eating Meals: None [facility] 6 Click - Daily Activities Score: 21 [...] Pain and Promote Comfort Flowsheets (Taken 06/30/2025 023 by Denae Lowe RN) Pain Management Interventions: [...] Activity Management: activity adjusted per tolerance Taken 06/29/20251737 by Kassandra Handy RN Pressure Reduction Techniques: frequent weight shift encouraged heels elevated off bed Problem: Infection Goal: Absence of Infection Signs and Symptoms Intervention: Prevent or Manage Infection Flowsheets Taken 06/30/2025 1800 by Ju Herrera RN Isolation Precautions: precautions maintained protective Taken 06/29/20251737 by Kassandra Handy, TIERA [...] Care Review Outcome: Ongoing, Progressing Flowsheets (Taken 06/29/20258) Progress: declining Outcome Evaluation: patient and verbalize [...] and Manage Fall Risk Flowsheets (Taken 06/29/2025 152 by Tenisha Amador, RN) Safety Promotion/Fall Prevention: activity supervised Intervention: Prevent Skin Injury Flowsheets Taken 06/29/20251737 Skin Protection: silicone foam dressing in place Taken 06/29/2025 1600 Body Position: weight shifting Intervention: Prevent and Manage VTE (Venous Thromboembolism) Risk Flowsheets (Taken 06/29/2025 1600) VTE Prevention/Management: bilateral SCDs (sequential compression devices) on Intervention: Prevent Infection Flowsheets (Taken 06/29/2025 152 by Tenisha Amador, TIERA) Infection Prevention: environmental surveillance performed Goal: Optimal Comfort and Wellbeing Outcome: Ongoing, Progressing Intervention: Monitor Pain and Promote Comfort Flowsheets (Taken 06/29/2025 152 by Tenisha Amador, RN) Pain Management Interventions: breathing exercises Intervention: Provide Person-Centered Care Flowsheets (Taken 06/29/2025 1523 by Tenisha Amador, RN) Trust Relationship/Rapport: care explained Problem: Skin Injury Risk Increased Goal: Skin Health and Integrity Outcome: Ongoing, Progressing Intervention: Optimize Skin Protection Flowsheets Taken 06/29/20251737 Pressure Reduction Techniques: frequent weight shift encouraged heels elevated off bed Pressure Reduction Devices: specialty bed utilized Skin Protection: silicone foam dressing in place Taken 06/29/2025 1600 Activity Management: activity adjusted per tolerance Head of Bed (HOB) Positioning: HOB at 30 degrees Intervention: Promote and Optimize Oral Intake Flowsheets Taken 06/29/20251737 by Ole, Kassandra, RN Nutrition Interventions: supplemental drinks provided Taken 06/29/2025 1523 by Tenisha Amador RN Oral Nutrition Promotion: [...] Identify and Manage Contributors Flowsheets (Taken 06/29/2025 1738) Medication Review/Management: medications reviewed Self-Care Promotion: independence encouraged BADL personal objects within reach BADL personal routines maintained Intervention: Promote Injury-Free Environment Flowsheets (Taken 06/29/2025 152 by Tenisha Amador, RN) Safety Promotion/Fall Prevention: activity supervised * Consults - Lillian Martin - 06/29/2025 10:25 AM EDTAssociated Order(s): IP CONSULT TO NUTRITION SERVICES Adult Nutrition Evaluation Note Scout Lowe 70 y.o. male CSN: [id number] Room/Bed 205/205 Nutrition evaluation type: assessment Reason for evaluation: [...] Supplemental oxygen O2 Delivery Method: Nasal cannula [place] Coma Scale Score: 15 GI Symptoms: Cramping [...] 34.69 Weight Evaluation: Obese-Class 1 (BMI 30-34.9) [place] Body Weight (kg): 72.7 Percent [place] Body Weight: 147 Wt Readings from Last [...] Regular Adult Carbohydrate Restriction: Consistent CHO 2 (3812-9620 Duong, 80 g/meal) Fat Restriction: Low fat Modified Calorie/ Protein: High calorie, high protein Diet Experience and Nutrition History: Diet Education Provided: Will monitor Pertinent home medications: Quaker needs: Nutrition Focused Physical Exam: Unable to [...] Medicine Consult performed by: Homero Gutierrez APRN, LUDMILA Consult ordered by: Kj Santos MD Reason [...] pressor support, who presented who presents to [facility] on on 06/28/2025 with chief complaint of [...] with mild ascites, 10 mm retained bladder calculus, bladder wall thickening/haziness, stable 6 mm non of [...] since 05/29/25 Location Start Date End Date [facility]) 06/01/25 06/02/25 Allergies: Patient has no known [...] Procedure Component Value Units Date/Time Urine Culture [id number] Collected: 06/29/25 0200 Order Status: Sent Specimen: Urine, Clean Catch Updated: 06/29/25 0401 Blood Culture (Aerobic/Anaerobet Set) [id number] Collected: 06/28/252138 Order Status: Completed Specimen: Blood from Arm, Right Updated: 06/29/25 0009 Culture Culture in lab Blood Culture (Aerobic/Anaerobet Set) [id number] Collected: 06/28/252138 Order Status: Completed Specimen: Blood from Hand, Left Updated: 06/29/25 0008 Culture Culture in lab Imaging (in last [...] Jayme Amaya MD on 06/28/2025 11:53 PM Assessment [...] pressor support, who presented who presents to [facility] on on 06/28/2025 with chief complaint of [...] 750 mg, Oral, 4 times daily PRN gixmbabanpko-gffg-bhkpnbfd-folic acid (Centrum) chewable tablet 1 tablet, Daily [...] Center 07/02/2025 9:10 AM Patricia Strauss [facility] 07/22/2025 7:[address] [facility] 07/22/2025 8:45 AM Dyllan Paul [facility] Homero Gutierrez APRN, DNP [1] Past [...] MD Consult ordered by: Kj Santos MD [facility] Urology Consult Note 06/29/25 Service Requesting [...] 750 mg, Oral, 4 times daily PRN slqdbyuhbbmm-vvkr-gfzjsiib-folic acid (Centrum) chewable tablet 1 tablet, Daily [...] days Lab Units 06/29/25 0200 COLOR UA [place] SPEC GRAV U 1.030 PH UA 5.5 PROTEIN UR mg/dL Trace* GLUCOSE UA mg/dL Negative KETONES UA mg/dL Trace* LEUKOCYTES UA Small* NITRITE UA Negative Results from last 7 days Lab Units 06/29/25 0200 COLOR UA [place] SPEC GRAV U 1.030 PH UA 5.5 [...] Total DLP (Dose-Length Product): 2949.46 mGy.cm (accession [id number]), 2949.46 mGy.cm (accession [id number]). Please note: The reported value represents the [...] fluid Eugene Ruggiero MD Urology PGY-3 Pager: [phone] - I addended plan after rounding with attending Dr. Hilario- MPJorden Hansen MD Department of Urology, PGY-1 Pager: [phone] [1] Past Medical History: Diagnosis Date Cancer [...] RN Outcome: Ongoing, Not Progressing Flowsheets (Taken 06/29/20251522) Plan of Care Reviewed With: patient Goal: [...] Identify and Manage Fall Risk Flowsheets (Taken 06/29/20251522) Safety Promotion/Fall Prevention: activity supervised Intervention: Prevent [...] Progressing Intervention: Optimize Skin Protection Flowsheets (Taken 06/29/2025 1523) Activity Management: activity adjusted per tolerance Intervention: Promote and Optimize Oral Intake Flowsheets (Taken 06/29/2025 152) Oral Nutrition Promotion: social interaction promoted * [...] required) 4.5 g Intravenous New Bag 06/28/2025 225 EDT iohexol (OMNIPaque) 350 MG/ML injection 100 [...] at 12.3 [BN] 2350 CMP(!) LALITA with Pattern Technician 1.49 (already getting IVF repletion). Sodium 131, AST 67, Bili 2.8 [BN] 2350 C-Reactive protein(!) 63.6, similar but slightly higher compared to last draw 6 days prior [BN] 2350 POCT venous blood gas gem(!) Slight lactate elevation at 2.5, alkalosis [BN] [place] Jun 29, 2025 0118 Lymphocytes %: 37 [...] w/u notable for: WBC 24k, LALITA with Pattern Technician 1.49, Na 131, CRP 63.6, UA with [...] [1] Past Medical History: Diagnosis Date Cancer ([facility]) january 26, 2025 Cirrhosis ([facility]) 2021 History of methicillin resistant Staphylococcus [...] Known Allergies Amaury Muhammad MD Resident 06/30/25 1545 Cosigned by Rg Coleman MD at 07/06/2025 10:07 AM EDT Associated attestation - Rg Coleman MD - 07/06/2025 10:07 AM EDT I saw and evaluated the patient with the resident/fellow. I discussed the case with the resident/fellow and agree with the findings and plan as documented. * ED Triage Notes - Frandy Bailon RN - 06/28/2025 9:12 PM EDT Pt recently d/c from hospital secondary to prost ectomy. Pt acquired pneumonia while here and sent home Monday. Pt normally very alert but is lethargic, general malaise. 100.8 at home. 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 Tachy at 112 BG documented in this encounter Plan of Treatment Upcoming Encounters Date Type Department Care Team (Latest Contact Info) Description 08/14/2025 12:25 PM EDT Hospital Encounter [facility] S Operating Room [address] [place] [address] Dyllan Paul MD [id number] [place] [address] 08/14/2025 12:25 PM EDT - 08/14/2025 1:55 PM EDT Surgery [facility] S Operating Room [address] [place] [id number] Dyllan Paul MD [id number] [place] [address] URETEROSCOPY, WITH LASER LITHOTRIPSY [[id number] (CPT )] 10/28/2025 8:00 AM EST [facility] [address] [place] [id number] Pavan Aldrich MD [address] [facility] [address] [place] [address] Scheduled Procedures Name Priority Associated Diagnoses Date/Ti [...] until 01/05/2027 documented as of this encounter Procedures Procedure Name Priority Date/Time Associated Diagnosis Comments CBC W/O DIFFERENTIAL Routine 07/04/2025 5:26 AM EDT COMPREHENSIVE METABOLIC PANEL, PLASMA Routine 07/04/2025 5:26 AM EDT FL LESS THAN 1 HOUR (NON-REPORTABLE) Routine 07/03/2025 6:15 PM EDT CALCULI (KIDNEY STONE)ANALYSIS (SO) STAT 07/03/2025 6:12 PM EDT Right ureteral stone MI OPEN BLADDER,REMV CALCULUS 07/03/2025 5:10 PM EDT Right ureteral stone Special Needs Cmax MI CYSTOSCOPY,INSERT URETERAL STENT 07/03/2025 5:10 PM EDT [...] 11 PM EDT MAGNESIUM, PLASMA Routine 06/30/2025 3:1 1 PM EDT BASIC METABOLIC PANEL, PLASMA Routine [...] CBC W/O Differential (07/04/2025 5:26 AM EDT) [facility] Signature WBC Count 10.13 3.70 - 10.30 10*3/uL LAB HEMATOLOGY METHOD 07/04/2025 5:48 AM EDT [facility] RBC Count 3.46(L) 4.60 - 6.10 10*6/uL LAB HEMATOLOGY METHOD 07/04/2025 5:48 AM EDT [facility] HGB 11.3(L) 13.7 - 17.5 g/dL LAB HEMATOLOGY METHOD 07/04/2025 5:48 AM EDT [facility] HCT 33.0(L) 40.0 - 51.0 % LAB HEMATOLOGY METHOD 07/04/2025 5:48 AM EDT [facility] Platelet Count 114(L) 155 - 369 10*3/uL LAB HEMATOLOGY METHOD 07/04/2025 5:48 AM EDT [facility] MCV 95 79 - 98 fL LAB HEMATOLOGY METHOD 07/04/2025 5:48 AM EDT [facility] MCH 32.7(H) 26.0 - 32.0 pg LAB HEMATOLOGY METHOD 07/04/2025 5:48 AM EDT [facility] MCHC 34.2 30.7 - 35.5 g/dL LAB HEMATOLOGY METHOD 07/04/2025 5:48 AM EDT [facility] RDW 15.7(H) 11.5 - 14.5 % LAB HEMATOLOGY METHOD 07/04/2025 5:48 AM EDT [facility] MPV 11.0 8.8 - 12.5 fL LAB HEMATOLOGY METHOD 07/04/2025 5:48 AM EDT [facility] nRBC 0.0 <=0.0 per 100 WBCs LAB HEMATOLOGY METHOD 07/04/2025 5:48 AM EDT [facility] Blood Venous blood specimen / Unknown Venipuncture / Unknown 07/04/2025 5:26 AM EDT 07/04/2025 5:37 AM EDT Quentin Anderson MD LAB BLOOD ORDERABLES Final Result [facility] [address] [place] [address] * (ABNORMAL) Comprehensive Metabolic Panel, Plasma (07/04/2025 5:26 AM EDT) Glucose, Plasma 147(H) 74 - 99 mg/dL 07/04/2025 6:07 AM EDT [facility] BUN, Plasma 41(H) 8 - 23 mg/dL 07/04/2025 6:07 AM EDT [facility] Creatinine, Plasma 1.83(H) 0.70 - 1.20 mg/dL 07/04/2025 6:07 AM EDT [facility] BUN/Creatinine Ratio 22 07/04/2025 6:07 AM EDT [facility] Sodium, Plasma 127(L) 136 - 145 mmol/L 07/04/2025 6:07 AM EDT [facility] Potassium, Plasma 4.3 3.6 - 4.9 mmol/L 07/04/2025 6:07 AM EDT [facility] Chloride, Plasma 98 97 - 107 mmol/L 07/04/2025 6:07 AM EDT [facility] CO2, Plasma 18(L) 22 - 29 mmol/L 07/04/2025 6:07 AM EDT [facility] Anion Gap 11 6 - 16 mmol/L 07/04/2025 6:07 AM EDT [facility] Total Calcium, Plasma 7.6(L) 8.9 - 10.2 mg/dL 07/04/2025 6:07 AM EDT [facility] Total Protein 4.8(L) 6.3 - 7.9 g/dL 07/04/2025 6:07 AM EDT [facility] Albumin, Plasma 2.3(L) 3.5 - 5.2 g/dL 07/04/2025 6:07 AM EDT [facility] AST, Plasma 41 10 - 50 U/L 07/04/2025 6:07 AM EDT [facility] ALT, Plasma 24 10 - 50 U/L 07/04/2025 6:07 AM EDT [facility] Alkaline Phosphatase, Plasma 133(H) 40 - 115 U/L 07/04/2025 6:07 AM EDT [facility] Total Bilirubin, Plasma 1.2(H) 0.2 - 1.1 mg/dL 07/04/2025 6:07 AM EDT [facility] eGFRcr 39.2 mL/min/1.7 3m*2 07/04/2025 6:07 AM EDT [facility] Comment:Reported eGFRcr in m L/min/1.73m2 is based the CKD-EPI 2020 equation that does not use a race coefficient. Blood Venous blood specimen / Unknown Venipuncture / Unknown 07/04/2025 5:26 AM EDT 07/04/2025 5:35 AM EDT us Quentin Anderson MD LAB BLOOD ORDERABLES Final Result [facility] [address] [place] [address] * [place] Less than 1 Hour Intraoperative (07/03/2025 6:15 PM EDT) Narrative IMAGING - 07/03/2025 6:17 PM EDT Images were obtained for surgical purposes. See Dyllan Paul's surgical note in the patient's chart for the findings. Dyllan Paul MD IMG FLUOROSCOPY PROCEDURES Fi nal Result Performing Organization Address [facility]/ZIP Co de Phone Number IMAGING * Calculi (Kidney Stone) Analysis (07/03/2025 6:12 PM EDT) Calculi Mass 807 mg 07/08/2025 6:16 PM EDT [facility] Calculi Description See Note 07/08/2025 6:16 PM EDT [facility] Calculi Composition See Note 07/08/2025 6:16 PM EDT [facility] ([employer]) Calculus Urinary bladder structure / Unknown 07/03/2025 6:12 PM EDT 07/03/2025 6:35 PM EDT Comment:Pre-op diagnosis: Right ureteral stone [N20.1] Narrative [facility]) - 07/08/2025 6:16 PM EDT Specimen consists [...] composition determined by FTIR analysis. Performed By: [facility] [address] [place] [address] Laboratory Clerk: Sotero Banuelos MD, PhD CLIA Number: [id number] Dyllan Paul MD LAB REF LAB BLOOD AND FLUID O RD Final Result Performing Organization Address [facility] Co de Phone Number [facility]) [address] [place] [address] * (ABNORMAL) Prothrombin Time/INR (07/03/2025 6:21 AM EDT) Prothrombin Time 21.7(H) 12.0 - 14.3 sec LAB COAGULATION METHOD 07/03/2025 6:47 AM EDT [facility] INR 1.9(H) 0.9 - 1.1 LAB COAGULATION METHOD 07/03/2025 6:47 AM EDT [facility] Blood Venous blood specimen / Unknown Venipuncture / Unknown 07/03/2025 6:21 AM EDT 07/03/2025 6:30 AM EDT Narrative [facility] - 07/03/2025 6:47 AM EDT OPTIMAL [...] recurrent MT INR 2.5 to 3.5 us Quentin Anderson MD LAB BLOOD ORDERABLES Final Result [facility] [address] [place] [address] * (ABNORMAL) CBC W/O Differential (07/03/2025 6:21 AM EDT) WBC Count 10.55(H) 3.70 - 10.30 10*3/uL LAB HEMATOLOGY METHOD 07/03/2025 6:40 AM EDT [facility] RBC Count 3.41(L) 4.60 - 6.10 10*6/uL LAB HEMATOLOGY METHOD 07/03/2025 6:40 AM EDT [facility] HGB 11.3(L) 13.7 - 17.5 g/dL LAB HEMATOLOGY METHOD 07/03/2025 6:40 AM EDT [facility] HCT 32.2(L) 40.0 - 51.0 % LAB HEMATOLOGY METHOD 07/03/2025 6:40 AM EDT [facility] Platelet Count 110(L) 155 - 369 10*3/uL LAB HEMATOLOGY METHOD 07/03/2025 6:40 AM EDT [facility] MCV 94 79 - 98 fL LAB HEMATOLOGY METHOD 07/03/2025 6:40 AM EDT [facility] MCH 33.1(H) 26.0 - 32.0 pg LAB HEMATOLOGY METHOD 07/03/2025 6:40 AM EDT [facility] MCHC 35.1 30.7 - 35.5 g/dL LAB HEMATOLOGY METHOD 07/03/2025 6:40 AM EDT [facility] RDW 15.9(H) 11.5 - 14.5 % LAB HEMATOLOGY METHOD 07/03/2025 6:40 AM EDT [facility] MPV 11.0 8.8 - 12.5 fL LAB HEMATOLOGY METHOD 07/03/2025 6:40 AM EDT [facility] nRBC 0.0 <=0.0 per 100 WBCs LAB HEMATOLOGY METHOD 07/03/2025 6:40 AM EDT [facility] Blood Venous blood specimen / Unknown Venipuncture / Unknown 07/03/2025 6:21 AM EDT 07/03/2025 6:30 AM EDT us Quentin Anderson MD LAB BLOOD ORDERABLES Final Result [facility] [address] [place] [address] * (ABNORMAL) Comprehensive Metabolic Panel, Plasma (07/03/2025 6:21 AM EDT) Glucose, Plasma 90 74 - 99 mg/dL 07/03/2025 7:00 AM EDT [facility] BUN, Plasma 36(H) 8 - 23 mg/dL 07/03/2025 7:00 AM EDT [facility] Creatinine, Plasma 1.54(H) 0.70 - 1.20 mg/dL 07/03/2025 7:00 AM EDT [facility] BUN/Creatinine Ratio 23 07/03/2025 7:00 AM EDT [facility] Sodium, Plasma 128(L) 136 - 145 mmol/L 07/03/2025 7:00 AM EDT [facility] Potassium, Plasma 3.8 3.6 - 4.9 mmol/L 07/03/2025 7:00 AM EDT [facility] Chloride, Plasma 98 97 - 107 mmol/L 07/03/2025 7:00 AM EDT [facility] CO2, Plasma 19(L) 22 - 29 mmol/L 07/03/2025 7:00 AM EDT [facility] Anion Gap 11 6 - 16 mmol/L 07/03/2025 7:00 AM EDT [facility] Total Calcium, Plasma 7.5(L) 8.9 - 10.2 mg/dL 07/03/2025 7:00 AM EDT [facility] Total Protein 4.8(L) 6.3 - 7.9 g/dL 07/03/2025 7:00 AM EDT [facility] Albumin, Plasma 2.2(L) 3.5 - 5.2 g/dL 07/03/2025 7:00 AM EDT [facility] AST, Plasma 42 10 - 50 U/L 07/03/2025 7:00 AM EDT [facility] Comment:Hemolyzed, result ma y be falsely increased. ALT, Plasma 24 10 - 50 U/L 07/03/2025 7:00 AM EDT [facility] Alkaline Phosphatase, Plasma 128(H) 40 - 115 U/L 07/03/2025 7:00 AM EDT [facility] Total Bilirubin, Plasma 1.4(H) 0.2 - 1.1 mg/dL 07/03/2025 7:00 AM EDT [facility] eGFRcr 48.2 mL/min/1.7 3m*2 07/03/2025 7:00 AM EDT [facility] Comment:Reported eGFRcr in m L/min/1.73m2 is based the CKD-EPI 2020 equation that does not use a race coefficient. Blood Venous blood specimen / Unknown Venipuncture / Unknown 07/03/2025 6:21 AM EDT 07/03/2025 6:30 AM EDT us Quentin Anderson MD LAB BLOOD ORDERABLES Final Result [facility] [address] [place] [address] * (ABNORMAL) Comprehensive Metabolic Panel, Plasma (07/02/2025 5:01 AM EDT) [facility] Signature Glucose, Plasma 93 74 - 99 mg/dL 07/02/2025 6:19 AM EDT [facility] BUN, Plasma 31(H) 8 - 23 mg/dL 07/02/2025 6:19 AM EDT [facility] Creatinine, Plasma 1.34(H) 0.70 - 1.20 mg/dL 07/02/2025 6:19 AM EDT [facility] BUN/Creatinine Ratio 23 07/02/2025 6:19 AM EDT [facility] Sodium, Plasma 129(L) 136 - 145 mmol/L 07/02/2025 6:19 AM EDT [facility] Potassium, Plasma 3.7 3.6 - 4.9 mmol/L 07/02/2025 6:19 AM EDT [facility] Chloride, Plasma 102 97 - 107 mmol/L 07/02/2025 6:19 AM EDT [facility] CO2, Plasma 20(L) 22 - 29 mmol/L 07/02/2025 6:19 AM EDT [facility] Anion Gap 7 6 - 16 mmol/L 07/02/2025 6:19 AM EDT [facility] Total Calcium, Plasma 7.1(L) 8.9 - 10.2 mg/dL 07/02/2025 6:19 AM EDT [facility] Total Protein 4.7(L) 6.3 - 7.9 g/dL 07/02/2025 6:19 AM EDT [facility] Albumin, Plasma 2.2(L) 3.5 - 5.2 g/dL 07/02/2025 6:19 AM EDT [facility] AST, Plasma 37 10 - 50 U/L 07/02/2025 6:19 AM EDT [facility] ALT, Plasma 26 10 - 50 U/L 07/02/2025 6:19 AM EDT [facility] Alkaline Phosphatase, Plasma 114 40 - 115 U/L 07/02/2025 6:19 AM EDT [facility] Total Bilirubin, Plasma 1.7(H) 0.2 - 1.1 mg/dL 07/02/2025 6:19 AM EDT [facility] eGFRcr 57.0 mL/min/1.7 3m*2 07/02/2025 6:19 AM EDT [facility] Comment:Reported eGFRcr in m L/min/1.73m2 is based the CKD-EPI 2020 equation that does not use a race coefficient. Blood Venous blood specimen / Unknown Venipuncture / Unknown 07/02/2025 5:01 AM EDT 07/02/2025 5:12 AM EDT us Quentin Anderson MD LAB BLOOD ORDERABLES Final Result [facility] [address] [place] [address] * (ABNORMAL) CBC and Differential (07/01/2025 4:59 AM EDT) WBC Count 14.93(H) 3.70 - 10.30 10*3/uL LAB HEMATOLOGY METHOD 07/01/2025 5:17 AM EDT [facility] RBC Count 3.42(L) 4.60 - 6.10 10*6/uL LAB HEMATOLOGY METHOD 07/01/2025 5:17 AM EDT [facility] HGB 11.1(L) 13.7 - 17.5 g/dL LAB HEMATOLOGY METHOD 07/01/2025 5:17 AM EDT [facility] HCT 32.6(L) 40.0 - 51.0 % LAB HEMATOLOGY METHOD 07/01/2025 5:17 AM EDT [facility] Platelet Count 112(L) 155 - 369 10*3/uL LAB HEMATOLOGY METHOD 07/01/2025 5:17 AM EDT [facility] MCV 95 79 - 98 fL LAB HEMATOLOGY METHOD 07/01/2025 5:17 AM EDT [facility] MCH 32.5(H) 26.0 - 32.0 pg LAB HEMATOLOGY METHOD 07/01/2025 5:17 AM EDT [facility] MCHC 34.0 30.7 - 35.5 g/dL LAB HEMATOLOGY METHOD 07/01/2025 5:17 AM EDT [facility] RDW 15.8(H) 11.5 - 14.5 % LAB HEMATOLOGY METHOD 07/01/2025 5:17 AM EDT [facility] MPV 11.2 8.8 - 12.5 fL LAB HEMATOLOGY METHOD 07/01/2025 5:17 AM EDT [facility] nRBC 0.1(H) <=0.0 per 100 WBCs LAB HEMATOLOGY METHOD 07/01/2025 5:17 AM EDT [facility] Differential Type Automated LAB HEMATOLOGY METHOD 07/01/2025 5:17 AM EDT [facility] Neutrophils % 54 % LAB HEMATOLOGY METHOD 07/01/2025 5:17 AM EDT [facility] Lymphocytes % 30 % LAB HEMATOLOGY METHOD 07/01/2025 5:17 AM EDT [facility] Monocytes % 9 % LAB HEMATOLOGY METHOD 07/01/2025 5:17 AM EDT [facility] Eosinophils % 5 % LAB HEMATOLOGY METHOD 07/01/2025 5:17 AM EDT [facility] Basophils % 1 % LAB HEMATOLOGY METHOD 07/01/2025 5:17 AM EDT [facility] Immature Granulocytes % 1 % LAB HEMATOLOGY METHOD 07/01/2025 5:17 AM EDT [facility] Neutrophils Absolute 8.14(H) 1.60 - 6.10 10*3/uL LAB HEMATOLOGY METHOD 07/01/2025 5:17 AM EDT [facility] Lymphocytes Absolute 4.47(H) 1.20 - 3.90 10*3/uL LAB HEMATOLOGY METHOD 07/01/2025 5:17 AM EDT [facility] Monocytes Absolute 1.40(H) 0.30 - 0.90 10*3/uL LAB HEMATOLOGY METHOD 07/01/2025 5:17 AM EDT [facility] Eosinophils Absolute 0.74(H) 0.00 - 0.50 10*3/uL LAB HEMATOLOGY METHOD 07/01/2025 5:17 AM EDT [facility] Basophils Absolute 0.08 0.00 - 0.10 10*3/uL LAB HEMATOLOGY METHOD 07/01/2025 5:17 AM EDT [facility] Immature Granulocytes Absolute 0.10(H) 0.00 - 0.06 10*3/uL LAB HEMATOLOGY METHOD 07/01/2025 5:17 AM EDT [facility] Blood Venous blood specimen / Unknown Venipuncture / Unknown 07/01/2025 4:59 AM EDT 07/01/2025 5:06 AM EDT Narrative [facility] - 07/01/2025 5:17 AM EDT Therapeutic decision making should be based on absolute values, rather than percentages. Lizzie Biggs MD LAB BLOOD ORDERABLES Fi nal Result [facility] [address] [place] [address] * (ABNORMAL) Comprehensive Metabolic Panel, Plasma (07/01/2025 4:59 AM EDT) Glucose, Plasma 106(H) 74 - 99 mg/dL 07/01/2025 5:35 AM EDT [facility] BUN, Plasma 28(H) 8 - 23 mg/dL 07/01/2025 5:35 AM EDT [facility] Creatinine, Plasma 1.31(H) 0.70 - 1.20 mg/dL 07/01/2025 5:35 AM EDT [facility] BUN/Creatinine Ratio 21 07/01/2025 5:35 AM EDT [facility] Sodium, Plasma 128(L) 136 - 145 mmol/L 07/01/2025 5:35 AM EDT [facility] Potassium, Plasma 4.2 3.6 - 4.9 mmol/L 07/01/2025 5:35 AM EDT [facility] Chloride, Plasma 98 97 - 107 mmol/L 07/01/2025 5:35 AM EDT [facility] CO2, Plasma 20(L) 22 - 29 mmol/L 07/01/2025 5:35 AM EDT [facility] Anion Gap 10 6 - 16 mmol/L 07/01/2025 5:35 AM EDT [facility] Total Calcium, Plasma 7.5(L) 8.9 - 10.2 mg/dL 07/01/2025 5:35 AM EDT [facility] Total Protein 4.8(L) 6.3 - 7.9 g/dL 07/01/2025 5:35 AM EDT [facility] Albumin, Plasma 2.3(L) 3.5 - 5.2 g/dL 07/01/2025 5:35 AM EDT [facility] AST, Plasma 38 10 - 50 U/L 07/01/2025 5:35 AM EDT [facility] Comment:Hemolyzed, result ma y be falsely increased. ALT, Plasma 31 10 - 50 U/L 07/01/2025 5:35 AM EDT [facility] Alkaline Phosphatase, Plasma 124(H) 40 - 115 U/L 07/01/2025 5:35 AM EDT [facility] Total Bilirubin, Plasma 2.1(H) 0.2 - 1.1 mg/dL 07/01/2025 5:35 AM EDT [facility] eGFRcr 58.6 mL/min/1.7 3m*2 07/01/2025 5:35 AM EDT [facility] Comment:Reported eGFRcr in m L/min/1.73m2 is based the CKD-EPI 2020 equation that does not use a race coefficient. Blood Venous blood specimen / Unknown Venipuncture / Unknown 07/01/2025 4:59 AM EDT 07/01/2025 5:06 AM EDT Lizzie Biggs MD LAB BLOOD ORDERABLES Fi nal Result [facility] [address] [place] [address] * (ABNORMAL) Magnesium, Plasma (07/01/2025 4:59 AM EDT) Magnesium, Plasma 2.7(H) 1.9 - 2.4 mg/dL 07/01/2025 5:35 AM EDT [facility] Blood Venous blood specimen / Unknown Venipuncture / Unknown 07/01/2025 4:59 AM EDT 07/01/2025 5:06 AM EDT us Lizzie Biggs MD LAB BLOOD ORDERABLES Fi nal Result Performing Organization Address City/[facility] Co de Phone Number [facility] [address] [place] [address] * Phosphorus, Plasma (07/01/2025 4:59 AM EDT) Phosphorus, Plasma 3.0 2.5 - 4.5 mg/dL 07/01/2025 5:35 AM EDT [facility] Blood Venous blood specimen / Unknown Venipuncture / Unknown 07/01/2025 4:59 AM EDT 07/01/2025 5:06 AM EDT us Lizzie Biggs MD LAB BLOOD ORDERABLES Fi nal Result Performing Organization Address [facility] Co de Phone Number [facility] [address] [place] [address] * Urinalysis Microscopic Examination (06/30/2025 6:20 PM EDT) Urine Urine specimen obtained by clean catch procedure / Unknown Non-blood Collection / Unknown 06/30/2025 6:20 PM EDT 06/30/2025 6:52 PM EDT us Lizzie Biggs MD LAB URINE ORDERABLES Fi nal Result Performing Organization Address [facility] Co de Phone Number [facility] [address] [place] [address] * (ABNORMAL) Urinalysis with reflex microscopic (Culture NOT Included) (06/30/2025 6:20 PM EDT) Color, Urine Dark Yellow LAB URINALYSIS - AUTOMATED METHOD 06/30/2025 7:28 PM EDT [facility] Clarity, Urine Cloudy LAB URINALYSIS - AUTOMATED METHOD 06/30/2025 7:28 PM EDT [facility] Spec [place], Urine >1.030(H) 1.005 - 1.030 LAB URINALYSIS - AUTOMATED METHOD 06/30/2025 7:28 PM EDT [facility] pH, Urine 6.0 5.0 - 8.0 LAB URINALYSIS - AUTOMATED METHOD 06/30/2025 7:28 PM EDT [facility] Protein, Urine 30(A) Negative mg/dL LAB URINALYSIS - AUTOMATED METHOD 06/30/2025 7:28 PM EDT [facility] Glucose, Urine Negative Negative mg/dL LAB URINALYSIS - AUTOMATED METHOD 06/30/2025 7:28 PM EDT [facility] Ketones, Urine Trace(A) Negative mg/dL LAB URINALYSIS - AUTOMATED METHOD 06/30/2025 7:28 PM EDT [facility] Blood, Urine Moderate(A) Negative LAB URINALYSIS - AUTOMATED METHOD 06/30/2025 7:28 PM EDT [facility] Bilirubin, Urine Small(A) Negative LAB URINALYSIS - AUTOMATED METHOD 06/30/2025 7:28 PM EDT [facility] Urobilinogen, Urine 1.0 0.2 to 1.0 mg/dL LAB URINALYSIS - AUTOMATED METHOD 06/30/2025 7:28 PM EDT [facility] Leukocytes, Urine Moderate(A) Negative LAB URINALYSIS - AUTOMATED METHOD 06/30/2025 7:28 PM EDT [facility] Nitrite, Urine Negative Negative LAB URINALYSIS - AUTOMATED METHOD 06/30/2025 7:28 PM EDT [facility] RBC, Urine >50(A) 0 to 3 /HPF LAB URINALYSIS - AUTOMATED METHOD 06/30/2025 7:28 PM EDT [facility] WBC, Urine 21 - 50(A) 0 to 5 /HPF LAB URINALYSIS - AUTOMATED METHOD 06/30/2025 7:28 PM EDT [facility] Squamous Epithelial Cells 0 - 2 0 to 5 /HPF LAB URINALYSIS - AUTOMATED METHOD 06/30/2025 7:28 PM EDT [facility] Hyaline Casts 6 - 10(A) 0 to 5 /LPF LAB URINALYSIS - AUTOMATED METHOD 06/30/2025 7:28 PM EDT [facility] Bacteria, Urine Present Negative LAB URINALYSIS - AUTOMATED METHOD 06/30/2025 7:28 PM EDT [facility] Renal Tubular Cells Present Absent 06/30/2025 7:28 PM EDT [facility] Yeast (Budding and/or Pseudohyphae) Present(A) Absent 06/30/2025 7:28 PM EDT [facility] Urine Urine specimen obtained by clean catch procedure / Unknown Non-blood Collection / Unknown 06/30/2025 6:20 PM EDT 06/30/2025 6:52 PM EDT Narrative [facility] - 06/30/2025 7:28 PM EDT Performed by manual method Lizzie Biggs MD LAB URINE ORDERABLES Fi nal Result [facility] [address] [place] [address] * Lactate, venous (06/30/2025 3:11 PM EDT) Lactate, Venous, Whole Blood 1.4 0.5 - 2.2 mmol/L LAB HEMATOLOGY METHOD 06/30/2025 3:25 PM EDT [facility] Blood Venous blood specimen / Unknown Venipuncture / Unknown 06/30/2025 3:11 PM EDT 06/30/2025 3:23 PM EDT Lizzie Biggs MD LAB BLOOD ORDERABLES Fi nal Result Performing Organization Address City/[facility]/ZIP Co de Phone Number [facility] [address] [place] [address] * Phosphorus, Plasma (06/30/2025 3:11 PM EDT) Phosphorus, Plasma 3.0 2.5 - 4.5 mg/dL 06/30/2025 4:40 PM EDT [facility] Blood Venous blood specimen / Unknown Venipuncture / Unknown 06/30/2025 3:11 PM EDT 06/30/2025 3:34 PM EDT us Lizzie Biggs MD LAB BLOOD ORDERABLES Fi nal Result Performing Organization Address City/[facility]/ZIP Co de Phone Number [facility] [address] [place] [address] * (ABNORMAL) CBC and Differential (06/30/2025 3:11 PM EDT) WBC Count 15.42(H) 3.70 - 10.30 10*3/uL LAB HEMATOLOGY METHOD 06/30/2025 7:40 PM EDT [facility] RBC Count 2.92(L) 4.60 - 6.10 10*6/uL LAB HEMATOLOGY METHOD 06/30/2025 7:40 PM EDT [facility] HGB 9.6(L) 13.7 - 17.5 g/dL LAB HEMATOLOGY METHOD 06/30/2025 7:40 PM EDT [facility] HCT 28.0(L) 40.0 - 51.0 % LAB HEMATOLOGY METHOD 06/30/2025 7:40 PM EDT [facility] Platelet Count 100(L) 155 - 369 10*3/uL LAB HEMATOLOGY METHOD 06/30/2025 7:40 PM EDT [facility] MCV 96 79 - 98 fL LAB HEMATOLOGY METHOD 06/30/2025 7:40 PM EDT [facility] MCH 32.9(H) 26.0 - 32.0 pg LAB HEMATOLOGY METHOD 06/30/2025 7:40 PM EDT [facility] MCHC 34.3 30.7 - 35.5 g/dL LAB HEMATOLOGY METHOD 06/30/2025 7:40 PM EDT [facility] RDW 15.9(H) 11.5 - 14.5 % LAB HEMATOLOGY METHOD 06/30/2025 7:40 PM EDT [facility] MPV 12.0 8.8 - 12.5 fL LAB HEMATOLOGY METHOD 06/30/2025 7:40 PM EDT [facility] nRBC 0.5(H) <=0.0 per 100 WBCs LAB HEMATOLOGY METHOD 06/30/2025 7:40 PM EDT [facility] Differential Type Automated LAB HEMATOLOGY METHOD 06/30/2025 7:40 PM EDT [facility] Neutrophils % 51 % LAB HEMATOLOGY METHOD 06/30/2025 7:40 PM EDT [facility] Lymphocytes % 34 % LAB HEMATOLOGY METHOD 06/30/2025 7:40 PM EDT [facility] Monocytes % 9 % LAB HEMATOLOGY METHOD 06/30/2025 7:40 PM EDT [facility] Eosinophils % 4 % LAB HEMATOLOGY METHOD 06/30/2025 7:40 PM EDT [facility] Basophils % 1 % LAB HEMATOLOGY METHOD 06/30/2025 7:40 PM EDT [facility] Immature Granulocytes % 1 % LAB HEMATOLOGY METHOD 06/30/2025 7:40 PM EDT [facility] Neutrophils Absolute 8.05(H) 1.60 - 6.10 10*3/uL LAB HEMATOLOGY METHOD 06/30/2025 7:40 PM EDT [facility] Lymphocytes Absolute 5.22(H) 1.20 - 3.90 10*3/uL LAB HEMATOLOGY METHOD 06/30/2025 7:40 PM EDT [facility] Monocytes Absolute 1.32(H) 0.30 - 0.90 10*3/uL LAB HEMATOLOGY METHOD 06/30/2025 7:40 PM EDT [facility] Eosinophils Absolute 0.68(H) 0.00 - 0.50 10*3/uL LAB HEMATOLOGY METHOD 06/30/2025 7:40 PM EDT [facility] Basophils Absolute 0.07 0.00 - 0.10 10*3/uL LAB HEMATOLOGY METHOD 06/30/2025 7:40 PM EDT [facility] Immature Granulocytes Absolute 0.08(H) 0.00 - 0.06 10*3/uL LAB HEMATOLOGY METHOD 06/30/2025 7:40 PM EDT [facility] Blood Venous blood specimen / Unknown Venipuncture / Unknown 06/30/2025 3:11 PM EDT 06/30/2025 3:37 PM EDT Narrative [facility] - 06/30/2025 7:40 PM EDT Therapeutic decision making should be based on absolute values, rather than percentages. Lizzie Biggs MD LAB BLOOD ORDERABLES Fi nal Result [facility] [address] [place] [address] * (ABNORMAL) Basic Metabolic Panel, Plasma (06/30/2025 3:11 PM EDT) [facility] Glucose, Plasma 101(H) 74 - 99 mg/dL 06/30/2025 4:40 PM EDT [facility] BUN, Plasma 25(H) 8 - 23 mg/dL 06/30/2025 4:40 PM EDT [facility] Creatinine, Plasma 1.08 0.70 - 1.20 mg/dL 06/30/2025 4:40 PM EDT [facility] BUN/Creatinine Ratio 23 06/30/2025 4:40 PM EDT [facility] Sodium, Plasma 130(L) 136 - 145 mmol/L 06/30/2025 4:40 PM EDT [facility] Potassium, Plasma 3.2(L) 3.6 - 4.9 mmol/L 06/30/2025 4:40 PM EDT [facility] Chloride, Plasma 111(H) 97 - 107 mmol/L 06/30/2025 4:40 PM EDT [facility] CO2, Plasma 18(L) 22 - 29 mmol/L 06/30/2025 4:40 PM EDT [facility] Anion Gap 1(L) 6 - 16 mmol/L 06/30/2025 4:40 PM EDT [facility] Total Calcium, Plasma 6.3(L) 8.9 - 10.2 mg/dL 06/30/2025 4:40 PM EDT [facility] eGFRcr 73.8 mL/min/1.7 3m*2 06/30/2025 4:40 PM EDT [facility] Comment:Reported eGFRcr in m L/min/1.73m2 is based the CKD-EPI 2020 equation that does not use a race coefficient. Blood Venous blood specimen / Unknown Venipuncture / Unknown 06/30/2025 3:11 PM EDT 06/30/2025 3:34 PM EDT Lizzie Biggs MD LAB BLOOD ORDERABLES Fi nal Result [facility] [address] [place] [address] * (ABNORMAL) Magnesium, Plasma (06/30/2025 3:11 PM EDT) Magnesium, Plasma 1.7(L) 1.9 - 2.4 mg/dL 06/30/2025 4:40 PM EDT [facility] Blood Venous blood specimen / Unknown Venipuncture / Unknown 06/30/2025 3:11 PM EDT 06/30/2025 3:34 PM EDT Lizzie Biggs MD LAB BLOOD ORDERABLES Fi nal Result [facility] [address] [place] [address] * Vancomycin, random (06/30/2025 12:48 PM EDT) Vancomycin, Random, Plasma 13.3 ug/mL 06/30/2025 3:07 PM EDT [facility] Blood Venous blood specimen / Unknown Venipuncture / Unknown 06/30/2025 12:48 PM EDT 06/30/2025 12:58 PM EDT Jennifer Mcgrath MD LAB BLOOD ORDERABLES Final Resu lt Performing Organization Address City/[facility]/[place] [address] * (ABNORMAL) Cystatin C (06/30/2025 6:01 AM EDT) Cystatin C 1.58(H) 0.61 - 0.95 mg/L 06/30/2025 6:40 AM EDT [facility] Blood Venous blood specimen / Unknown Venipuncture / Unknown 06/30/2025 6:01 AM EDT 06/30/2025 6:10 AM EDT Lizzie Biggs MD LAB BLOOD ORDERABLES Fi nal Result [facility] [address] [place] [address] * (ABNORMAL) Ammonia, Plasma (06/30/2025 6:01 AM EDT) Ammonia 64(H) 11 - 51 umol/L 06/30/2025 6:38 AM EDT [facility] Comment:Improper specimen marquez ndling may falsely increase results. Blood Venous blood specimen / Unknown Venipuncture / Unknown 06/30/2025 6:01 AM EDT 06/30/2025 6:08 AM EDT us Homerocrow Gutierrez APRN, DNP LAB BLOOD ORDERAB LES Final Result [facility] [address] [place] [address] * Sedimentation Rate, Automated (06/30/2025 6:01 AM EDT) Sedimentation Rate 17 <20 mm/hr 2024 6:18 AM EDT [facility] Blood Venous blood specimen / Unknown Venipuncture / Unknown 06/30/2025 6:01 AM EDT 06/30/2025 6:11 AM EDT us Homero Gutierrez APRN, DNP LAB BLOOD ORDERAB LES Final Result Performing Organization Address [facility] [place] [address] * Vancomycin, random (06/29/2025 6:05 PM EDT) Vancomycin, Random, Plasma 15.4 ug/mL 06/29/2025 6:42 PM EDT [facility] Blood Venous blood specimen / Unknown Venipuncture / Unknown 06/29/2025 6:05 PM EDT 06/29/2025 6:15 PM EDT us Lizzie Biggs MD LAB BLOOD ORDERABLES Fi nal Result Performing Organization Address [facility]/ZIP Co de Phone Number [facility] [address] [place] [address] * US Abdomen Focused Region Liver, Pancreas, [...] Darlene Mejia MD on 06/29/2025 3:58 PM us Lizzie Biggs MD IMG US PROCEDURES Final Result * Creatinine, urine, random (06/29/2025 12:10 PM EDT) Creatinine, Urine 182 mg/dL 06/29/2025 1:10 PM EDT [facility] Urine Urine specimen obtained by clean catch procedure / Unknown Non-blood Collection / Unknown 06/29/2025 12:10 PM EDT 06/29/2025 12:37 PM EDT us Homero Gutierrez APRN, LUDMILA LAB URINE ORDERAB LES Final Result [facility] [address] [place] [address] * Urea nitrogen, urine (06/29/2025 12:10 PM EDT) Urea Nitrogen, Urine 865 mg/dL 06/29/2025 1:10 PM EDT [facility] Urine Urine specimen obtained by clean catch procedure / Unknown Non-blood Collection / Unknown 06/29/2025 12:10 PM EDT 06/29/2025 12:37 PM EDT us Homero Gutierrez APRN, DNP LAB URINE ORDERAB LES Final Result Performing Organization Address [facility] Co de Phone Number [facility] [address] [place] [address] * Methicillin Resistant Staphylococcus aureus (MRSA) by PCR (06/29/2025 9:39 AM EDT) Methicillin Resistant Staphylococcus aureus (MRSA) by PCR Not Detected Not Detected 06/29/2025 12:04 PM EDT [facility] Swab Both anterior nares / Unknown Non-blood Collection / Unknown 06/29/2025 9:39 AM EDT 06/29/2025 10:18 AM EDT Narrative [facility] - 06/29/2025 12:04 PM EDT This test is FDA approved for use with nares swab specimens using the eSwabs. This test is used for clinical purposes. It should not be regarded as investigational or for research. This laboratory is certified under the Clinical Laboratory improvement Amendments of 1988 (CLIA-88 as qualified to perform high complexity clinical laboratory testing. us Homero Gutierrez APRN, DNP LAB MICROBIOLOGY - GENERAL ORDERABLES Final Result Performing Organization Address [facility] Co de Phone Number [facility] [address] [place] [address] * (ABNORMAL) Wound Culture and Gram Stain (06/29/2025 9:39 AM EDT) CULTURE READING WOUND Light Growth 07/02/2025 12:29 PM EDT [facility] CULTURE READING WOUND Staphylococcus epidermidis(A) 07/02/2025 12:29 PM EDT [facility] Comment: This isolate has been identified using the FDA Approved [employer] [place] System The organism value for this result has been updated. These results have been appended to the previously preliminary verified report. Edited result: Previously reported as Gram positive cocci on 07/01/2025 at 0744 EDT. Gram Stain Result Numerous Polymorphonuclear leukocytes(A) 07/02/2025 12:29 PM EDT [facility] Gram Stain Result Rare Gram negative rods(A) 07/02/2025 12:29 PM EDT [facility] Swab Skin structure / Unknown Non-blood Collection / Unknown 06/29/2025 9:39 AM EDT 06/29/2025 2:57 PM EDT Homerocrow Gutierrez APRN, DNP LAB MICROBIOLOGY - GENERAL ORDERABLES Final Result Performing Organization Address City/State/[facility] Co de Phone Number [facility] [address] [place] [address] * Multi Drug Resistance Test (06/29/2025 9:39 AM EDT) Culture No growth at day 1 06/30/2025 4:16 PM EDT [facility] Swab (Nares and Cari Rectal) Non-blood Collection / Unknown 06/29/2025 9:39 AM EDT 06/29/2025 10:19 AM EDT Narrative [facility] - 06/30/2025 4:16 PM EDT This test was developed and its performance characteristics determined by the [facility]. Although the media is FDA-approved, it is not FDA-approved for all specimen types submitted. The FDA has determined that such clearance or approval is not necessary. This test is used for surveillance purposes. It should not be regarded as investigational or for research. The [facility] is certified under the Clinical Laboratory Improvement Amendments of 1988 (CLIA-88) as qualified to perform high complexity clinical laboratory testing. us Homero N Madujibeya VACUUM EVAPORATION OPERATOR, DNP LAB MICROBIOLOGY - GENERAL ORDERABLES Final Result Performing Organization Address City/[facility]/ZIP Co de Phone Number [facility] [address] [place] [address] * (ABNORMAL) GGT (06/29/2025 6:52 AM EDT) GGT, Plasma 116(H) 8 - 61 U/L 06/29/2025 8:35 AM EDT [facility] Blood Venous blood specimen / Unknown Venipuncture / Unknown 06/29/2025 6:52 AM EDT 06/29/2025 6:56 AM EDT us Homerocrow Gutierrez APRN, DNP LAB BLOOD ORDERAB LES Final Result Performing Organization Address City/[facility]/ZIP Co de Phone Number [facility] [address] [place] [address] * (ABNORMAL) Ionized calcium, whole blood (06/29/2025 6:52 AM EDT) Ionized Calcium, Whole Blood 4.1(L) 4.6 - 5.1 mg/dL LAB HEMATOLOGY METHOD 06/29/2025 7:12 AM EDT [facility] Blood Venous blood specimen / Unknown Venipuncture / Unknown 06/29/2025 6:52 AM EDT 06/29/2025 6:55 AM EDT us Homerocrow Gutierrez APRN, DNP LAB BLOOD ORDERAB LES Final Result [facility] [address] [place] [address] * (ABNORMAL) Procalcitonin (06/29/2025 6:52 AM EDT) Procalcitonin, Plasma 2.47(H) <0.09 ng/mL 06/29/2025 7:27 AM EDT [facility] Blood Venous blood specimen / Unknown Venipuncture / Unknown 06/29/2025 6:52 AM EDT 06/29/2025 6:56 AM EDT Narrative [facility] - 06/29/2025 7:27 AM EDT Procalcitonin [...] predict 28 day mortality risk. Please consult [email or web address] for more information. Test performed at [facility]. us Homerocrow Gutierrez APRN, LUDMILA LAB BLOOD ORDERAB LES Final Result Performing Organization Address City/[facility]/ZIP Co de Phone Number [facility] [address] [place] [address] * (ABNORMAL) Cystatin C (06/29/2025 6:52 AM EDT) Pathologist [facility] Cystatin C 1.5(H) 0.61 - 0.95 mg/L 06/29/2025 8:35 AM EDT [facility] Blood Venous blood specimen / Unknown Venipuncture / Unknown 06/29/2025 6:52 AM EDT 06/29/2025 6:56 AM EDT us Homero N Matt VACUUM EVAPORATION OPERATOR, DNP LAB BLOOD ORDERAB LES Final Result Performing Organization Address City/[facility]/ZIP Co de Phone Number [facility] [address] [place] [address] * (ABNORMAL) Basic metabolic panel (06/29/2025 6:52 AM EDT) Glucose, Plasma 116(H) 74 - 99 mg/dL 06/29/2025 7:27 AM EDT [facility] BUN, Plasma 24(H) 8 - 23 mg/dL 06/29/2025 7:27 AM EDT [facility] Creatinine, Plasma 1.39(H) 0.70 - 1.20 mg/dL 06/29/2025 7:27 AM EDT [facility] BUN/Creatinine Ratio 17 06/29/2025 7:27 AM EDT [facility] Sodium, Plasma 131(L) 136 - 145 mmol/L 06/29/2025 7:27 AM EDT [facility] Potassium, Plasma 3.8 3.6 - 4.9 mmol/L 06/29/2025 7:27 AM EDT [facility] Chloride, Plasma 99 97 - 107 mmol/L 06/29/2025 7:27 AM EDT [facility] CO2, Plasma 22 22 - 29 mmol/L 06/29/2025 7:27 AM EDT [facility] Anion Gap 10 6 - 16 mmol/L 06/29/2025 7:27 AM EDT [facility] Total Calcium, Plasma 7.6(L) 8.9 - 10.2 mg/dL 06/29/2025 7:27 AM EDT [facility] eGFRcr 54.5 mL/min/1.7 3m*2 06/29/2025 7:27 AM EDT [facility] Comment:Reported eGFRcr in m L/min/1.73m2 is based the CKD-EPI 2020 equation that does not use a race coefficient. Blood Venous blood specimen / Unknown Venipuncture / Unknown 06/29/2025 6:52 AM EDT 06/29/2025 6:56 AM EDT us Homeroheather Gutierrez APRN, DNP LAB BLOOD ORDERAB LES Final Result [facility] [address] [place] [address] * Lactate, venous (06/29/2025 6:52 AM EDT) Lactate, Venous, Whole Blood 1.5 0.5 - 2.2 mmol/L LAB HEMATOLOGY METHOD 06/29/2025 6:56 AM EDT [facility] Blood Venous blood specimen / Unknown Venipuncture / Unknown 06/29/2025 6:52 AM EDT 06/29/2025 6:55 AM EDT Homero Gutierrez APRN, LUDMILA LAB BLOOD ORDERAB LES Final Result Performing Organization Address City/[facility]/ZIP Co de Phone Number [facility] [address] [place] [address] * SEND SELIN MESSAGE (06/29/2025 2:00 AM EDT) Urine Urine specimen obtained by clean catch procedure / Unknown Non-blood Collection / Unknown 06/29/2025 2:00 AM EDT 06/29/2025 2:22 AM EDT Rg Coleman MD LAB URINE ORDERABLES Final Res ult Performing Organization Address [facility] Co de Phone Number [facility] [address] [place] [address] * (ABNORMAL) Urine Culture (06/29/2025 2:00 AM EDT) Culture 10,000 - 100,000 CFU/mL Diutina rugosa (formerly Celestina rugosa)(A) 07/02/2025 8:16 AM EDT [facility] Comment:This result was dete rmined by MALDI tof mass spectrometry using the Vivaty database and is for research use only. Urine Urine specimen obtained by clean catch procedure / Unknown Non-blood Collection / Unknown 06/29/2025 2:00 AM EDT 06/29/2025 2:22 AM EDT Rg Coleman MD LAB MICROBIOLOGY - GENERAL ORD ERABLES Final Result Performing Organization Address City/[facility]/ZIP Co de Phone Number [facility] [address] [place] [address] * Urinalysis Microscopic Examination (06/29/2025 2:00 AM EDT) Urine Urine specimen obtained by clean catch procedure / Unknown Non-blood Collection / Unknown 06/29/2025 2:00 AM EDT 06/29/2025 2:04 AM EDT us Rg Coleman MD LAB URINE ORDERABLES Final Res ult Performing Organization Address City/[facility]/ZIP Co de Phone Number [facility] [address] [place] [address] * Urine Salcedo Panel (06/29/2025 2:00 AM EDT) Extra Sent for Culture 06/29/2025 4:01 AM EDT [facility] Urine Urine specimen obtained by clean catch procedure / Unknown Non-blood Collection / Unknown 06/29/2025 2:00 AM EDT 06/29/2025 2:22 AM EDT Rg Coleman MD LAB URINE ORDERABLES Final Res ult Performing Organization Address [facility] Co de Phone Number [facility] [address] [place] [address] * (ABNORMAL) Urinalysis with reflex microscopic (Culture NOT Included) (06/29/2025 2:00 AM EDT) Color, Urine [place] LAB URINALYSIS - AUTOMATED METHOD 06/29/2025 3:11 AM EDT [facility] Clarity, Urine Cloudy LAB URINALYSIS - AUTOMATED METHOD 06/29/2025 3:11 AM EDT [facility] Spec [place], Urine 1.030 1.005 - 1.030 LAB URINALYSIS - AUTOMATED METHOD 06/29/2025 3:11 AM EDT [facility] pH, Urine 5.5 5.0 - 8.0 LAB URINALYSIS - AUTOMATED METHOD 06/29/2025 3:11 AM EDT [facility] Protein, Urine Trace(A) Negative mg/dL LAB URINALYSIS - AUTOMATED METHOD 06/29/2025 3:11 AM EDT [facility] Glucose, Urine Negative Negative mg/dL LAB URINALYSIS - AUTOMATED METHOD 06/29/2025 3:11 AM EDT [facility] Ketones, Urine Trace(A) Negative mg/dL LAB URINALYSIS - AUTOMATED METHOD 06/29/2025 3:11 AM EDT [facility] Blood, Urine Large(A) Negative LAB URINALYSIS - AUTOMATED METHOD 06/29/2025 3:11 AM EDT [facility] Bilirubin, Urine Small(A) Negative LAB URINALYSIS - AUTOMATED METHOD 06/29/2025 3:11 AM EDT [facility] Urobilinogen, Urine 1.0 0.2 to 1.0 mg/dL LAB URINALYSIS - AUTOMATED METHOD 06/29/2025 3:11 AM EDT [facility] Leukocytes, Urine Small(A) Negative LAB URINALYSIS - AUTOMATED METHOD 06/29/2025 3:11 AM EDT [facility] Nitrite, Urine Negative Negative LAB URINALYSIS - AUTOMATED METHOD 06/29/2025 3:11 AM EDT [facility] RBC, Urine >50(A) 0 to 3 /HPF LAB URINALYSIS - AUTOMATED METHOD 06/29/2025 3:11 AM EDT [facility] Comment:This result was prev iously suppressed from the chart. WBC, Urine 11 - 20(A) 0 to 5 /HPF LAB URINALYSIS - AUTOMATED METHOD 06/29/2025 3:11 AM EDT [facility] Comment:This result was prev iously suppressed from the chart. Squamous Epithelial Cells 0 - 2 0 to 5 /HPF LAB URINALYSIS - AUTOMATED METHOD 06/29/2025 3:11 AM EDT [facility] Comment:This result was prev iously suppressed from the chart. Hyaline Casts >20(A) 0 to 5 /LPF LAB URINALYSIS - AUTOMATED METHOD 06/29/2025 3:11 AM EDT [facility] Comment:This result was prev iously suppressed from the chart. Bacteria, Urine Negative Negative LAB URINALYSIS - AUTOMATED METHOD 06/29/2025 3:11 AM EDT [facility] Comment:This result was prev iously suppressed from the chart. Yeast (Budding and/or Pseudohyphae) Present(A) Absent 06/29/2025 3:11 AM EDT [facility] Comment:This result was prev iously suppressed from the chart. Urine Urine specimen obtained by clean catch procedure / Unknown Non-blood Collection / Unknown 06/29/2025 2:00 AM EDT 06/29/2025 2:04 AM EDT Narrative [facility] - 06/29/2025 3:11 AM EDT Urinalysis dipstick results may be inaccurate due to specimen color or an interfering substance in the specimen.Test performed by manual method Rg Coleman MD LAB URINE ORDERABLES Final Res ult Performing Organization Address [facility] de Phone Number [facility] [address] [place] [address] * (ABNORMAL) Troponin T, High Sensitivity, 2 Hour, Plasma (06/28/2025 11:57 PM EDT) Troponin T, High Sensitivity, 2 Hour 22(H) <19 ng/L 06/29/2025 12:22 AM EDT [facility] Troponin Delta 2 <10 ng/L 06/29/2025 12:22 AM EDT [facility] Troponin Delta Interpretation Not Significant 06/29/2025 12:22 AM EDT [facility] Comment:Not Significant. No acute change in troponin observed between the baseline and 2 hour samples. Blood Venous blood specimen / Unknown Venipuncture / Unknown 06/28/2025 11:57 PM EDT 06/29/2025 12:03 AM EDT Rg Coleman MD LAB BLOOD ORDERABLES Final Res ult Performing Organization Address [facility] de Phone Number [facility] [address] [place] [address] * CT Angio Abdomen Pelvis (06/28/2025 11:11 [...] Total DLP (Dose-Length Product): 2949.46 mGy.cm (accession [id number]), 2949.46 mGy.cm (accession [id number]). Please note: The reported value represents the [...] ligament, and paraesophageal varices. Interval removal of Hécotr-Yung drain from the abdomen. Scrotal edema, and [...] Total DLP (Dose-Length Product): 2949.46 mGy.cm (accession [id number]),2949.46 mGy.cm (accession [id number]). Please note: The reported valuerepresents the total [...] Total DLP (Dose-Length Product): 2949.46 mGy.cm (accession [id number]), 2949.46 mGy.cm (accession [id number]). Please note: The reported value represents the [...] Total DLP (Dose-Length Product): 2949.46 mGy.cm (accession [id number]),2949.46 mGy.cm (accession [id number]). Please note: The reported valuerepresents the total [...] - 63 U/L 06/29/2025 7:03 AM EDT [facility] Blood Venous blood specimen / Unknown Venipuncture / Unknown 06/28/2025 9:39 PM EDT 06/28/2025 9:47 PM EDT Homero Gutierrez APRN, DNP LAB BLOOD ORDERAB LES Final Result Performing Organization Address [facility]/ZIP Co de Phone Number [facility] [address] [place] [address] * Blood Culture (Aerobic/Anaerobet Set) (06/28/2025 9:39 PM EDT) Culture No growth at day 5 07/03/2025 11:02 PM EDT [facility] Blood Structure of left hand / Unknown Venipuncture / Unknown 06/28/2025 9:39 PM EDT 06/28/2025 10:04 PM EDT Rg Coleman MD LAB MICROBIOLOGY - GENERAL ORD ERABLES Final Result [facility] [address] [place] [address] * Blood Culture (Aerobic/Anaerobet Set) (06/28/2025 9:39 PM EDT) Culture No growth at day 5 07/03/2025 11:02 PM EDT [facility] Blood Structure of part of right upper limb / Unknown Venipuncture / Unknown 06/28/2025 9:39 PM EDT 06/28/2025 10:05 PM EDT Rg Coleman MD LAB MICROBIOLOGY - GENERAL ORD ERABLES Final Result Performing Organization Address City/[facility]/ZIP Co de Phone Number [facility] [address] [place] [address] * (ABNORMAL) C-Reactive protein (06/28/2025 9:39 PM EDT) CRP, Plasma 63.6(H) <=8.0 mg/L 06/28/2025 10:15 PM EDT [facility] Blood Venous blood specimen / Unknown Venipuncture / Unknown 06/28/2025 9:39 PM EDT 06/28/2025 9:47 PM EDT Narrative [facility] - 06/28/2025 10:15 PM EDT This CRP test is appropriate for assessment of infection, systemic inflammation and/or tissue injury. To assess cardiovascular disease risk order high sensitivity CRP (CRPH). Rg Coleman MD LAB BLOOD ORDERABLES Final Res ult Performing Organization Address [facility]/ZIP Co de Phone Number [facility] [address] [place] [address] * (ABNORMAL) Troponin now and 120 min (06/28/2025 9:39 PM EDT) Pathologist [facility] Troponin T, High Sensitivity, 0 Hour 24(H) <19 ng/L 06/28/2025 10:15 PM EDT [facility] Blood Venous blood specimen / Unknown Venipuncture / Unknown 06/28/2025 9:39 PM EDT 06/28/2025 9:47 PM EDT Rg Coleman MD LAB BLOOD ORDERABLES Final Res ult Performing Organization Address City/[facility]/ZIP Co de Phone Number [facility] [address] [place] [address] * (ABNORMAL) CMP (06/28/2025 9:39 PM EDT) Glucose, Plasma 122(H) 74 - 99 mg/dL 06/28/2025 10:15 PM EDT [facility] BUN, Plasma 23 8 - 23 mg/dL 06/28/2025 10:15 PM EDT [facility] Creatinine, Plasma 1.49(H) 0.70 - 1.20 mg/dL 06/28/2025 10:15 PM EDT [facility] BUN/Creatinine Ratio 15 06/28/2025 10:15 PM EDT [facility] Sodium, Plasma 131(L) 136 - 145 mmol/L 06/28/2025 10:15 PM EDT [facility] Potassium, Plasma 3.7 3.6 - 4.9 mmol/L 06/28/2025 10:15 PM EDT [facility] Chloride, Plasma 98 97 - 107 mmol/L 06/28/2025 10:15 PM EDT [facility] CO2, Plasma 20(L) 22 - 29 mmol/L 06/28/2025 10:15 PM EDT [facility] Anion Gap 13 6 - 16 mmol/L 06/28/2025 10:15 PM EDT [facility] Total Calcium, Plasma 8.1(L) 8.9 - 10.2 mg/dL 06/28/2025 10:15 PM EDT [facility] Total Protein 5.3(L) 6.3 - 7.9 g/dL 06/28/2025 10:15 PM EDT [facility] Albumin, Plasma 2.7(L) 3.5 - 5.2 g/dL 06/28/2025 10:15 PM EDT [facility] AST, Plasma 67(H) 10 - 50 U/L 06/28/2025 10:15 PM EDT [facility] ALT, Plasma 49 10 - 50 U/L 06/28/2025 10:15 PM EDT [facility] Alkaline Phosphatase, Plasma 157(H) 40 - 115 U/L 06/28/2025 10:15 PM EDT [facility] Total Bilirubin, Plasma 2.8(H) 0.2 - 1.1 mg/dL 06/28/2025 10:15 PM EDT [facility] eGFRcr 50.2 mL/min/1.7 3m*2 06/28/2025 10:15 PM EDT [facility] Comment:Reported eGFRcr in m L/min/1.73m2 is based the CKD-EPI 2020 equation that does not use a race coefficient. Blood Venous blood specimen / Unknown Venipuncture / Unknown 06/28/2025 9:39 PM EDT 06/28/2025 9:47 PM EDT Rg Coleman MD LAB BLOOD ORDERABLES Final Res ult Performing Organization Address [facility] Co de Phone Number [facility] [address] [place] [address] * Type and screen (06/28/2025 9:39 PM [...] TEST ORDERABLES Final Result Performing Organization Address [facility] Phone Number BLOOD BANK [address] * (ABNORMAL) APTT (06/28/2025 9:39 PM EDT) aPTT 70(H) 25 - 35 sec 06/28/2025 10:05 PM EDT [facility] Blood Venous blood specimen / Unknown Venipuncture / Unknown 06/28/2025 9:39 PM EDT 06/28/2025 9:47 PM EDT Rg Coleman MD LAB BLOOD ORDERABLES Final Res ult Performing Organization Address [facility] Co de Phone Number [facility] [address] [place] [address] * (ABNORMAL) CBC w/diff (06/28/2025 9:39 PM EDT) WBC Count 23.92(H) 3.70 - 10.30 10*3/uL LAB HEMATOLOGY METHOD 06/29/2025 1:00 AM EDT [facility] RBC Count 3.78(L) 4.60 - 6.10 10*6/uL LAB HEMATOLOGY METHOD 06/29/2025 1:00 AM EDT [facility] HGB 12.3(L) 13.7 - 17.5 g/dL LAB HEMATOLOGY METHOD 06/29/2025 1:00 AM EDT [facility] HCT 34.7(L) 40.0 - 51.0 % LAB HEMATOLOGY METHOD 06/29/2025 1:00 AM EDT [facility] Platelet Count 128(L) 155 - 369 10*3/uL LAB HEMATOLOGY METHOD 06/29/2025 1:00 AM EDT [facility] MCV 92 79 - 98 fL LAB HEMATOLOGY METHOD 06/29/2025 1:00 AM EDT [facility] MCH 32.5(H) 26.0 - 32.0 pg LAB HEMATOLOGY METHOD 06/29/2025 1:00 AM EDT [facility] MCHC 35.4 30.7 - 35.5 g/dL LAB HEMATOLOGY METHOD 06/29/2025 1:00 AM EDT [facility] RDW 16.3(H) 11.5 - 14.5 % LAB HEMATOLOGY METHOD 06/29/2025 1:00 AM EDT [facility] MPV 12.2 8.8 - 12.5 fL LAB HEMATOLOGY METHOD 06/29/2025 1:00 AM EDT [facility] nRBC 0.0 <=0.0 per 100 WBCs LAB HEMATOLOGY METHOD 06/29/2025 1:00 AM EDT [facility] Differential Type Automated LAB HEMATOLOGY METHOD 06/29/2025 1:00 AM EDT [facility] Neutrophils % 59 % LAB HEMATOLOGY METHOD 06/29/2025 1:00 AM EDT [facility] Lymphocytes % 37 % LAB HEMATOLOGY METHOD 06/29/2025 1:00 AM EDT [facility] Monocytes % 3 % LAB HEMATOLOGY METHOD 06/29/2025 1:00 AM EDT [facility] Eosinophils % 0 % LAB HEMATOLOGY METHOD 06/29/2025 1:00 AM EDT [facility] Basophils % 0 % LAB HEMATOLOGY METHOD 06/29/2025 1:00 AM EDT [facility] Immature Granulocytes % 1 % LAB HEMATOLOGY METHOD 06/29/2025 1:00 AM EDT [facility] Neutrophils Absolute 13.97(H) 1.60 - 6.10 10*3/uL LAB HEMATOLOGY METHOD 06/29/2025 1:00 AM EDT [facility] Lymphocytes Absolute 8.87(H) 1.20 - 3.90 10*3/uL LAB HEMATOLOGY METHOD 06/29/2025 1:00 AM EDT [facility] Monocytes Absolute 0.73 0.30 - 0.90 10*3/uL LAB HEMATOLOGY METHOD 06/29/2025 1:00 AM EDT [facility] Eosinophils Absolute 0.07 0.00 - 0.50 10*3/uL LAB HEMATOLOGY METHOD 06/29/2025 1:00 AM EDT [facility] Basophils Absolute 0.06 0.00 - 0.10 10*3/uL LAB HEMATOLOGY METHOD 06/29/2025 1:00 AM EDT [facility] Immature Granulocytes Absolute 0.16(H) 0.00 - 0.06 10*3/uL LAB HEMATOLOGY METHOD 06/29/2025 1:00 AM EDT [facility] Blood Venous blood specimen / Unknown Venipuncture / Unknown 06/28/2025 9:39 PM EDT 06/28/2025 9:47 PM EDT Narrative [facility] - 06/29/2025 1:00 AM EDT Therapeutic decision making should be based on absolute values, rather than percentages. us Rg Coleman MD LAB BLOOD ORDERABLES Final Res ult [facility] [address] [place] [address] * (ABNORMAL) PT-INR (06/28/2025 9:39 PM EDT) Prothrombin Time 21.0(H) 12.0 - 14.3 sec 06/28/2025 10:04 PM EDT [facility] INR 1.8(H) 0.9 - 1.1 06/28/2025 10:04 PM EDT [facility] Blood Venous blood specimen / Unknown Venipuncture / Unknown 06/28/2025 9:39 PM EDT 06/28/2025 9:47 PM EDT Narrative [facility] - 06/28/2025 10:04 PM EDT OPTIMAL [...] recurrent MT INR 2.5 to 3.5 us Rg Coleman MD LAB BLOOD ORDERABLES Final Res ult [facility] [address] [place] [address] * (ABNORMAL) POCT venous blood gas gem (06/28/2025 9:33 PM EDT) pH, Venous 7.50(H) 7.32 - 7.43 06/28/2025 9:35 PM EDT [facility] pCO2, Venous 28(L) 40 - 55 mm Hg 06/28/2025 9:35 PM EDT [facility] pO2, Venous 66(H) 25 - 40 mm Hg 06/28/2025 9:35 PM EDT [facility] SO2, Venous 96(H) 65 - 80 % 06/28/2025 9:35 PM EDT [facility] Base Excess/Deficit, Venous -0.3 -2 - 3 mmol/L 06/28/2025 9:35 PM EDT [facility] HCO3, Venous 21.8(L) 22 - 26 mmol/L 06/28/2025 9:35 PM EDT [facility] Hemoglobin, Venous 12.8(L) 13.7 - 17.5 g/dL 06/28/2025 9:35 PM EDT [facility] Hematocrit, Venous 38.0(L) 40.0 - 51.0 % 06/28/2025 9:35 PM EDT [facility] Sodium, Venous 129(L) 136 - 145 mmol/L 06/28/2025 9:35 PM EDT [facility] Potassium, Venous 3.6 3.6 - 4.9 mmol/L 06/28/2025 9:35 PM EDT [facility] Comment:Hemolyzed, result ma y be falsely increased. POCT Chloride, Venous 98 97 - 107 mmol/L 06/28/2025 9:35 PM EDT [facility] Glucose, Venous 114(H) 74 - 99 mg/dL 06/28/2025 9:35 PM EDT [facility] Ionized Calcium, Venous 4.2(L) 4.6 - 5.1 mg/dL 06/28/2025 9:35 PM EDT [facility] Lactate, Venous 2.5(H) 0.5 - 2.2 mmol/L 06/28/2025 9:35 PM EDT [facility] Body Temperature 37.0 Celsius 06/28/2025 9:35 PM EDT [facility] pH, Temp Corrected, Venous 7.50(H) 7.32 - 7.43 06/28/2025 9:35 PM EDT [facility] pCO2, Temp Corrected, Venous 28(L) 40 - 55 mm Hg 06/28/2025 9:35 PM EDT [facility] pO2, Temp Corrected, Venous 66(H) 25 - 40 mm Hg 06/28/2025 9:35 PM EDT [facility] Manager Quality Compliance ID SHIRA Herzog 06/28/2025 9:35 PM EDT [facility] Blood, Venous Whole blood specimen / Unknown 06/28/2025 9:33 PM EDT 06/28/2025 9:35 PM EDT us Generic Provider Poct LAB POINT OF CARE TEST DOCKED DEVICE UNSOLICITED RESULTS Final Result [facility] [address] [place] [address] * (ABNORMAL) POCT glucose meter (06/28/2025 9:22 PM EDT) POCT Glucose 119(H) 74 - 99 mg/dL 06/28/2025 9:23 PM EDT [facility] Comment:Accuracy of [...] Comment 06/28/2025 9:23 PM EDT [facility] Manager Quality Compliance ID Abdi Major 06/28/2025 9:23 PM EDT [facility] Device ID [id number] 06/28/2025 9:23 PM EDT [facility] Specimen Type POC Capillary 06/28/2025 9:23 PM EDT [facility] Blood Capillary blood specimen / Unknown 06/28/2025 9:22 PM EDT 06/28/2025 9:23 PM EDT us Generic Provider Poct LAB POINT OF CARE TEST DOCKED DEVICE UNSOLICITED RESULTS Final Result Performing Organization Address City/State/[facility] Co de Phone Number [facility] [address] [place] [address] documented in this encounter Visit Diagnoses Diagnosis Sepsis, localized, in operative wound (CMS/HCC)- Primary Febrile illness Hypotension, unspecified hypotension type Right ureteral stone Cirrhosis of liver with ascites, unspecified hepatic cirrhosis type (CMS/HCC) Severe obesity (BMI 35.0-39.9) with comorbidity (CMS/HCC) Prostate CA (CMS/HCC) Malignant neoplasm of prostate Hypotension Unspecified hypotension UTI (urinary tract infection) Urinary tract infection, site not specified Cirrhosis of liver (CMS/HCC) Cirrhosis of liver without mention of alcohol Leukocytosis Leukocytosis, unspecified Hyperlipidemia Other and unspecified hyperlipidemia Anemia Unspecified anemia Renal calculi Calculus of kidney Right ureteral stone Ureteral stone Calculus of ureter documented in [...] 10 mg, Rectal, Daily PRN, Starting on Mon06/30/25 at 0606, Until Mon07/04/25 at 1650, Routine, [...] 1 Application Nasal, Once, 1 dose, On [facility] 07/03/25 at 1715, Routine Given 07/03/2025 4:54 PM EDT 1 Application Povidone-Iodine 5 % swab solution Apply externally, 1 Hour Prior To Procedure, 1 dose, On Eunice 07/03/25 at 1800, Routine Given 07/03/2025 5:07 [...] Oral, Daily with dinner, First dose on Mon06/29/25 at 1800, Until Discontinued, Routine Given 07/02/2025 [...] 109 kg), Intravenous, Once, 1 dose, On Mon06/29/25 at 2000, at 250 mL/hr, Routine Given 06/29/2025 10:07 PM EDT 1,000 mg 250 mL/h r vancomycin in NS (Vancocin) IVPB 1,500 mg 1,500 mg, Intravenous, Every 24 hours, First dose on Mon06/30/25 at 1615, Until Discontinued, at 166.7 mL/hr, Routine New Bag 06/30/2025 5:07 PM EDT 1,500 mg 166.7 mL/hr documented in this encounter Active and Recently Administered Medications Times are shown in EDT. Scheduled Medication Order 07/02/2025 07/03/2025 07/04/2025 atorvastatin (Lipitor) tablet 10 mg 10 mg, Oral, Daily, First dose on 06/29/25 at 0900, Until Discontinued, Routine 0848 (Given - Provider: Jing Field RN) 0953 (Given - Provider: Jing Field RN)1618 (MAR Hold - Provider: Automatic Transfer Provider - Reason: Patient in procedure)2033 (JAN Unhold - Provider: Automatic Transfer Provider) [...] on Mon06/29/25 at 2200, Until Discontinued, Routine 0621 (New Bag - Provider: Marielena Munoz RN)1433 (New Bag - Provider: Jing Field RN)2124 (New Bag - Provider: Marielena Munoz RN) 0617 (New Bag - Provider: Marielena Munoz RN)1400 (Due)1750 (Bolus - Provider: Lary Bloom CRNA, DNP) cefepime (Maxipime) 2 g in sodium chloride 0.9% 100 mL IVPB (vial adapter required) (CANCELED) 2 g, Intravenous, Every 12 hours, First dose on Mon07/04/25 at 0845, Until Discontinued, Routine 0937 (New Bag - Provider: Ju Herrera RN) enoxaparin (Lovenox) syringe 110 mg 110 mg, Subcutaneous, Every 12 hours, First dose on Mon06/29/25 at 1830, Until Discontinued, Routine 0636 (Given [...] on Mon06/30/25 at 1245, Last dose on 07/13/25 at 0900, Routine 0848 (Given - Provider: Jing Field RN) 0953 (Given - Provider: Jing Field RN)1618 (JAN Hold - Provider: Automatic Transfer Provider - Reason: Patient in procedure)203 (JAN Unhold - Provider: Automatic Transfer Provider) [...] Discontinued, Routine 0847 (Given - Provider: Jing Field RN)1713 (Not Given - Provider: Jing Field RN - Reason: Patient/family refused)204 (Given - Provider: Marielena Munoz RN) 0954 (Given - Provider: Jing Field RN)1546 (Given - Provider: Jing Field RN)1618 (JAN Hold - Provider: Automatic Transfer Provider - Reason: Patient in procedure)2032 (JAN Unhold - Provider: Automatic Transfer Provider)2229 (Not Given - Provider: Claude Ash RN [...] 8 hours, 30 doses, First dose on 06/29/25 at 0720, Last dose on Mon07/08/25 at 2320, Routine 0848 (Given - Provider: Jing Field RN)1433 (Given - Provider: Jing Field RN)2348 (Given - Provider: Marielena Munoz, TIERA) 0953 (Given - Provider: Jing Field RN)1546 (Given - Provider: Jing Field RN)1618 (JAN Hold - Provider: Automatic Transfer Provider - Reason: Patient in procedure)2032 ([facility] Unhold - Provider: Automatic Transfer Provider)222 (Given [...] Routine 0848 (Given - Provider: Jing Field RN)2040 (Not Given - Provider: Marielena Munoz RN - Reason: Patient/family refused) 0953 (Given - Provider: Jing Field RN)1618 (JAN Hold - Provider: Automatic Transfer Provider - Reason: Patient in procedure)2032 ([facility] Unhold - Provider: Automatic Transfer Provider)222 (Not Given - Provider: Claude Ash RN - Reason: Patient/family refused - Comment: already received 2 doses today) 0819 (Given - Provider: Ju Herrera RN) Povidone-Iodine 5 % swab solution 1 Application (COMPLETED) Nasal, Once, 1 dose, On Mon07/03/25 at 1715, Routine 1654 (Given - Provider: Bryan Og RN) Povidone-Iodine 5 % swab solution (COMPLETED) Apply externally, 1 Hour Prior To Procedure, 1 dose, On Mon07/03/25 at 1800, Routine 1707 (Given - Provider: Bryan Og, TIERA) sodium chloride 0.9 % flush 10 mL(Linked Group 1) 10 mL, Intravenous, Every 12 hours, First dose on Mon06/29/25 at 0520, Until Discontinued, Routine 0511 (Not Given - Provider: Marielena Munoz RN - Reason: Patient/family refused)1807 (Given - Provider: Jing Field, TIERA) 0553 (Not Given - Provider: Marielena Munoz RN - Reason: Patient/family refused)1618 (MAR Hold - Provider: Automatic Transfer Provider - Reason: Patient in procedure)1720 (Dose Auto Held - Provider: Automatic Transfer Provider)2032 (MAR Unhold - Provider: Automatic Transfer Provider) 0711 (Given - Provider: Claude Ash, TIERA) tamsulosin (Flomax) 24 hr capsule 0.4 mg 0.4 mg, Oral, Daily with dinner, First dose on Mon06/29/25 at 1800, Until Discontinued, Routine 171 (Given - Provider: Jing Field, TIERA) 1618 (MAR Hold - Provider: Automatic Transfer Provider - Reason: Patient in procedure)1800 (Dose Auto Held - Provider: Automatic Transfer Provider)2032 (MAR Unhold - Provider: Automatic Transfer Provider) PRN Medication Order 07/02/2025 07/03/2025 07/04/2025 bisacodyl (Dulcolax) suppository 10 mg 10 mg, Rectal, Daily PRN, Starting on 06/30/25 at 0606, Until Mon07/04/25 at 1650, Routine, constipation 161 (MAR Hold - Provider: Automatic Transfer Provider - Reason: Patient in procedure)2032 ([facility] Unhold - Provider: Automatic Transfer Provider) iohexol (OMNIPaque) 300 MG/ML injection (CANCELED) As needed, Starting on Eunice 07/03/25 at 1758, Until Eunice 07/03/25 at 1844, Routine, Intraprocedure 175 (Given - Provider: Dyllan Paul MD) methocarbamol (Robaxin) tablet 500 mg 500 mg, Oral, 4 times daily PRN, Starting on Mon06/29/25 at 0627, Until Mon07/04/25 at 1650, Routine, muscle spasms 161 (MAR Hold - Provider: Automatic Transfer Provider - Reason: Patient in procedure)2032 ([facility] Unhold - Provider: Automatic Transfer Provider) ondansetron (Zofran) injection 4 mg(Linked Group 2) 4 mg, Intravenous, Every 6 hours PRN, Starting on 06/30/25 at 1657, Until Mon07/04/25 at 1650, Routine, vomiting, nausea 1618 ([facility] Hold - Provider: Automatic Transfer Provider - Reason: Patient in procedure)2032 ([facility] Unhold - Provider: Automatic Transfer Provider) ondansetron (Zofran) injection 4 mg (COMPLETED) 4 mg, Intravenous, Once as needed, 1 dose, Starting on Eunice 07/03/25 at 1627, Until Eunice 07/03/25 at 1805, Routine, Holding - Preprocedure, nausea, vomiting 1805 (Given - Provider: Lary Bloom CRNA, DNP) ondansetron ODT (Zofran-ODT) disintegrating tablet 4 mg(Linked Group 2) 4 mg, Oral, Every 6 hours PRN, Starting on 06/30/25 at 1657, Until Mon07/04/25 at 1650, Routine, nausea, vomiting 1618 ([facility] Hold - Provider: Automatic Transfer Provider - Reason: Patient in procedure)2032 ([facility] Unhold - Provider: Automatic Transfer Provider) oxyCODONE (Roxicodone) immediate release tablet 5 mg 5 mg, Oral, Every 6 hours PRN, Starting on 06/29/25 at 1605, Until Mon07/04/25 at 1650, Routine, moderate pain 2040 (Given - Provider: Marielena Munoz RN) 1618 ([facility] Hold - Provider: Automatic Transfer Provider - Reason: Patient in procedure)2032 ([facility] Unhold - Provider: Automatic Transfer Provider)2226 (Given - Provider: Claude Ash RN) sodium chloride 0.9 % flush 10 mL(Linked Group 1) 10 mL, Intravenous, As needed, Starting on 06/29/25 at 0517, Until Mon07/04/25 at 1650, Routine, line care 1618 ([facility] Hold - Provider: Automatic Transfer Provider - Reason: Patient in procedure)2032 ([facility] Unhold - Provider: Automatic Transfer Provider) Linked Groups Order Group 1: Insert peripheral IV (CANCELED) Once, On 06/29/25 at 0518, For 1 occurrence And Saline [...] PRN, Starting on Mon06/30/25 at 1657, Until Mon07/01/25 at 1407, Routine, [...] documented as of this encounter Care Teams Sole Layer Hand Relationship Specialty Start Date End Date Murray Prajapati MD [facility] [address] [place] [id number] PCP - General 03/06/23 Jaja Camara, VACUUM EVAPORATION OPERATOR [address] [facility] [address] [place] [id number] Referring Physician Gastroenterology 03/06/23 Dyllan Paul MD [address] [facility] [address] [place] [id number] Surgeon Urology 04/29/25 Marlin Martinez, RN [facility] Registered Nurse 06/30/25 06/30/25 documented as of this encounter
--- OUTSIDE RECORDS SUMMARY | 2025-07-03 16:23 | XMS_ITS | Encounter Summary ---
Author Organization [facility] Address [address] [place] [address] Care Team Providers Care Gender Studies Professor Name Role Phone Murray Prajapati MD Primary Care Provider [phone] Jaja Camara LOBSTER CATCHER Unavailable [phone] Dyllan Paul MD Unavailable [phone] Reason for Visit * Reason Comments Fever Post-op Problem Fatigue * Auth/Cert (Routine) Specialty Diagnoses / Procedures Referred By Silverio barone Referred To Contact Diagnoses Sepsis, localized, in operative wound (CMS/HCC) Lizzie Cadena MD [address] [place] [address] Phone: tel: fax: PAV A Inpatient [address] [place] [address] Referral ID Status Reason Start Date Expiration Date Visits Re quested Visits Authorized [id number] 1 1 Encounter Details Date Type Department Care Team (Late st Contact Info) Description 07/03/2025 4:23 PM EDT - 07/03/2025 5:08 PM EDT Surgery PAV A OPERATING ROOM [address] [place] [address] Dyllan Paul MD [address] [facility] [address] [place] [address] CYSTOSCOPY, WITH URETERAL STENT INSERTION [73893 (CPT )] Surgery Details Date/Time Status Location OR Service Patient Class Case Cl ass Case Type Trauma Case? 07/03/2025 4:23 PM Posted [facility] Inpatient T-Timed: to be done within [...] any time in the past 12 m [facility], were you homeless or living in a alf (including now)? No 06/16/2025 CAGE ASSESSMENT Answer [...] drink first t rafy in the morning (EYE-CARETAKER GROUNDS) to steady your nerves or to get rid of a hangover? 0 06/28/2025 CAGE Questionnaire Score 0 025 Utilities Answer Date Recorded In the past 12 months has th [employer], gas, oil, or water company threatened to [...] Munoz RN 6. Suicidal Behavior (Lifetime) No 5 8:00 PM EDT Marielena Munoz RN documented [...] PCP name and Address: Murray Prajapati MD [address] [place] [address] [address] / [place] [address] Referring provider name and address: No referring [...] known as: Micotin Apply to affected areas nnjvqfmcykzv-sfqa-pvefivtd-folic acid chewable tablet Chew 1 tablet daily. [...] Your Medications These medications were sent to [facility] - [place], [place] - [address] [facility] [address] acetaminophen 500 MG tablet fluconazole 200 MG [...] preparation for this discharge. Quentin Anderson MD, [facility], FACP Taping Supervisor Division of Hospital Medicine * Progress Notes - Bianka Hansen MD - 07/04/2025 2:06 PM EDT [facility] Urology Inpatient Progress Note Primary Attending: [...] Hansen MD Department of Urology, PGY-1 Pager: [phone] Cosigned by Dyllan Paul MD at 07/07/2025 7:10 PM EDT Associated attestation - Dyllan Paul MD - 07/07/2025 7:10 PM EDT I saw and evaluated the patient. I discussed the case with the resident/fellow and agree with the findings and plan as documented. * Nursing Note - Ju Herrera RN - 07/04/2025 2:00 PM EDT Patient AVS summary printed and discharge education provided. [id number] delivered at bedside. PIVs removed with tips [...] Wellbeing Intervention: Provide Person-Centered Care Flowsheets (Taken 07/03/20255 [...] use encouraged Taken 07/03/2025 1117 by Jing Field, cereal miller Review/Management: medications reviewed Problem: Fall Injury Risk [...] Daily Living Intervention: Promote Activity and Functional [place] Flowsheets Taken 07/04/2025 1159 by Ju Herrera [...] from the original note were not included. 137[address] Using an Incentive Spirometer An incentive spirometer [...] rate Last Reviewed Date: 2025 00:00:00 ?? [id number] [employer]. All rights reserved. This information is not intended as a substitute for professional medical care. Always follow your healthcare professional's instructions. * [facility] - Ju Herrera RN - 07/04/2025 11:53 [...] the video go to this web address: [email or web address] Or, scan this QR code with your smart phone Last Reviewed Date: 2020 00:00:00 ?? [id number] [employer]. All rights reserved. This information is not [...] Note Scout Lowe 70 y.o. male CSN: [id number] Admission: 06/28/2025 9:28 PM Primary Problem: Sepsis, localized, in operative wound (CMS/HCC) Primary Title One Reading Teacher: Primary Caregiver: Self Assistance Available at Discharge: Availability of Care Givers (#Hours): 24 hours Family/Title One Reading Teacher(s) Willingness Assessed to care for patient at home: Yes (pt's present at bedside) Family/Title One Reading Teacher(s) Readiness Assessed to care for patient at [...] Progressing Flowsheets Taken 07/04/2025 0303 by Claude Ash, RN Progress: improving Taken 07/03/20252051 by Jackeline [...] Ongoing, Progressing Intervention: Promote Activity and Functional [place] Flowsheets (Taken 07/03/20251116 by Jing Field, TIERA) [...] Postoperative Diagnosis: Same Surgeon: Dyllan Paul MD Unloader Surgeon: Sherry Santos MD Intraoperative Findings: Intraoperative [...] Anderson MD - 07/03/2025 3:07 PM EDT [facility] MEDICINE PROGRESS NOTE HPI: 70 y.o. [...] chloride, 10 mL, PRN Quentin Anderson MD, [facility] Taping Supervisor Division of Hospital Medicine * Care Plan [...] Ongoing, Progressing Intervention: Promote Activity and Functional [place] Flowsheets (Taken 07/03/20251116) Activity Assistance Provided: assistance, [...] Ongoing, Progressing Intervention: Promote Activity and Functional [place] Flowsheets (Taken 07/03/20255) Activity Assistance Provided: assistance, [...] chloride, 10 mL, PRN Quentin Anderson MD, [facility], FACP Taping Supervisor Division of Hospital Medicine * Care Plan [...] Skin Injury Flowsheets Taken 07/02/2025 08 by Jing Field RN Body Position: turned [...] Ongoing, Progressing Intervention: Promote Activity and Functional [place] Flowsheets (Taken 07/02/2025 104) Self-Care Promotion: independence [...] Ongoing, Progressing Intervention: Promote Activity and Functional [place] Flowsheets (Taken 07/01/20252331) Activity Assistance Provided: assistance, 2 people Self-Care Promotion: independence encouraged BADL personal objects within reach * Progress Notes - Pepito Iyer, Geuro - 07/01/2025 2:23 PM EDT Pharmacokinetic Consult [...] Anderson MD - 07/01/2025 2:05 PM EDT [facility] MEDICINE PROGRESS NOTE HPI: 70 y.o. [...] chloride, 10 mL, PRN Quentin Anderson MD, [facility], FACP Taping Supervisor Division of Hospital Medicine * Progress Notes - Richa Raymundo RN - 07/01/2025 1:30 PM EDT Case Management Adult Initial Progress Note Scout Lowe 70 y.o. male CSN: [id number] Admission: 06/28/2025 9:28 PM Primary Problem: Sepsis, localized, in operative wound (CMS/HCC) Mapping Analyst reviewed chart and spoke with pt and patient's to complete this Initial Case Management Assessment. PCP: Murray Prajapati MD Emergency Contact: Extended Emergency Contact Information Primary Emergency Contact: JAVON LOWE Mobile Relation: Spouse Hydro Sprayer Operator needed? No Insurance: Primary Visit Coverage Payer Plan Sponsor Code Group Number Group Name DANIKA GARNICA TRADITIONAL/[place]/F[place] [id number] Primary Visit Coverage Subscriber Subscriber ID Subscriber Name Subscriber N Subscriber Address [id number] JAVON LOWE J [id number] [place] [address] Secondary Visit Coverage Payer Plan Sponsor Code Group Number Group Name MEDICARE MEDICARE PART A ONLY Secondary Visit Coverage Subscriber Subscriber ID Subscriber Name Subscriber SSN Subscriber Address [id number] SCOUT LOWE [id number] [place] [address] Patient information: Primary Caregiver: Self Accompanied by/Relationship: Javon Support System: Immediate family Daily Living Activities: Functional Status: Independent Living Arrangements: Family Type of Residence: Single Level [address] [place] [address] Current DME: Equipment Currently Used at Home: walker, rolling, tub bench Anticipated Discharge Date: TBD Patient's Discharge Goal: to d/c home with his once medically appropriate Assistance Available at Discharge: as needed Discharge Transport: family Follow Up Transport: family Home Health / Home Infusion / Outpatient Dialysis Services: n/a Living Will/Advance Directive/Power of Line Rider /Guardian: Have you reviewed your Advance Directive [...] tub bench. Pt's EC is his Javon, ph#[phone]. Pt was evaluated by PT/OT and currently has home w/assist recs and no DME. Per pt his family will provide him with transportation home at d/c and assistance as needed. RN CM will continue to follow and assist with d/c plan and as needed. Richa Raymundo RN * Progress Notes - Bianka Hansen MD - 07/01/2025 11:20 AM EDT [facility] Urology Inpatient Progress Note Primary Attending: [...] bacteria neg nitrite, 11-20 WBC, >50 RBC. / Urine culture growing 10-100k cfu/ml diutina rugosa. [...] and pt's adequate urine output. Will con cad operator stenting pt on if he is not [...] Isolation Precautions: protective Taken 06/29/20251737 by Kassandra Handy RN [...] Ongoing, Progressing Intervention: Promote Activity and Functional [place] Flowsheets Taken 06/30/20251999 by Faby Paige RN [...] - complicates all aspects of care [facility] * Progress Notes - Agatha [...] Pharmacy will continue to follow, Agatha Cruz, [facility] 06/30/2025 3:20 PM * Progress Notes - David Lei - 06/30/2025 1:52 PM EDT Physical Therapy Evaluation Patient Name: Scout Lowe Today's Date: 06/30/2025 PT Discharge Recommendations: Home with assistance Equipment Recommended: None History Scout Lowe is 70 y.o. male admitted 06/28/2025 for work-up of Sepsis, localized, in operative wound ([facility]). Problem List Active Hospital Problems Diagnosis Date Noted Sepsis, localized, in operative wound ([facility]) 06/29/2025 UTI (urinary tract infection) 06/29/2025 Hypotension 06/13/2025 Prostate CA ([facility]) 06/12/2025 Cirrhosis of liver ([facility]) 06/12/2025 Leukocytosis 06/12/2025 Hyperlipidemia 06/12/2025 Anemia 06/12/2025 Renal calculi 06/12/2025 Severe obesity (BMI 35.0-39.9) with comorbidity ([facility]) 06/03/2025 Procedures Past Medical History Patient has a past medical history of Cancer ([facility]) (january 26, 2025), Cirrhosis ([facility]) (2021),History of methicillin resistant Staphylococcus aureus (2011), [...] y/o male who presents to [facility] with possible sepsis. Participants in Care Family/Caregiver [...] admission Level of Mobility: Ambulatory- community Mobility [place]: Independent gait without device History of Falls: [...] Mobility Bed Mobility Exam: Scooting/Bridging Level of [place]: Stand-by assist Physical/Nonphysical Assist: Supervision Bed Mobility Exam: Supine to Sit Level of [place]: Stand-by assist Physical/Nonphysical Assist: Supervision Transfers Transfer Exam: Sit to stand Level of [place]: Stand-by assist Assistive Device: Hand held assist Transfer Exam: Stand to Sit Level of [place]: Stand-by assist Physical/Nonphysical Assist: Supervision Assistive Device: Hand held assist Ambulation Device: No device Assistance: Standby assist Distance : 5 ft. to recliner Ambulation Comments: Patient demonstrates decreased ashley and step length with no loss of balance Standardized Assessments Standardized Assessments Standardized Assessments: [facility] 6-Clicks Mobility Assessment [facility] 6-Clicks Mobility Assessment Difficulty patient has [...] 3-5 steps with a railing?: A little [facility] 6-Clicks Mobility Assessment Total : 18 Standardized Assessments Standardized Assessments Standardized Assessments: [facility] 6-Clicks Mobility Assessment [facility] 6-Clicks Mobility Assessment Difficulty patient has [...] 3-5 steps with a railing?: A little [facility] 6-Clicks Mobility Assessment Total : 18 [...] Hansen MD - 06/30/2025 1:15 PM EDT [facility] Urology Inpatient Progress Note Primary Attending: [...] days Lab Units 06/29/25 0200 COLOR UA [place] SPEC GRAV U 1.030 PH UA 5.5 [...] work-up of Sepsis, localized, in operative wound ([facility]). Problem List Active Hospital Problems Diagnosis Date Noted Sepsis, localized, in operative wound ([facility]) 06/29/2025 UTI (urinary tract infection) 06/29/2025 Hypotension 06/13/2025 Prostate CA ([facility]) 06/12/2025 Cirrhosis of liver ([facility]) 06/12/2025 Leukocytosis 06/12/2025 Hyperlipidemia 06/12/2025 Anemia 06/12/2025 Renal calculi 06/12/2025 Severe obesity (BMI 35.0-39.9) with comorbidity ([facility]) 06/03/2025 Procedures Past Medical History Patient has a past medical history of Cancer ([facility]) (january 26, 2025), Cirrhosis ([facility]) (2021),History of methicillin resistant Staphylococcus [...] admission Level of Mobility: Ambulatory- community Mobility [place]: Independent gait without device History of Falls: [...] Mobility Bed Mobility Exam: Scooting/Bridging Level of [place]: Stand-by assist Physical/Nonphysical Assist: Supervision Bed Mobility Exam: Supine to Sit Level of [place]: Stand-by assist Physical/Nonphysical Assist: Supervision Transfers Transfer Exam: Sit to stand Level of [place]: Stand-by assist Assistive Device: Hand held assist Transfer Exam: Stand to Sit Level of [place]: Stand-by assist Physical/Nonphysical Assist: Supervision Assistive Device: Hand held assist Functional Mobility Device: No device Assistance: Standby assist Distance : 5 ft. to recliner Self-Care Interventions Lower Extremity Dressing Sock Level of Assistance: Maximum assistance LE Dressing Where Assessed: Bed level Toileting Toileting Adaptive Equipment: Catheterization equipment Toileting Level of Assistance: Dependent Where Assessed: Bed level Toileting Interventions: use of purewick system Standardized Assessments [facility] 6-Click Daily Activities Help from Other: Don/Doff Regular Lower Body Clothings: Little Help From Other: Bathing: Little Help From Other: Toileting: Little Help From Other: Don/Doff Upper Body Clothings: None Help From Other: Grooming: None Help From Other: Eating Meals: None Ampa 6 Click - Daily Activities Score: 21 [...] Injury Intervention: Prevent Skin Injury Flowsheets (Taken 06/30/20252139) Body Position: turned Problem: Adult Inpatient Plan of Care Goal: Absence of Hospital-Acquired Illness or Injury Intervention: Prevent and Manage VTE (Venous Thromboembolism) Risk Flowsheets (Taken 06/30/20252139) VTE Prevention/Management: medication Problem: Adult Inpatient Plan of Care Goal: Absence of Hospital-Acquired Illness or Injury Intervention: Prevent Infection Flowsheets (Taken 06/29/2025 1523 by Tenisha Amador, RN) Infection Prevention: environmental surveillance performed Problem: Adult Inpatient Plan of Care Goal: Optimal Comfort and Wellbeing Intervention: Monitor Pain and Promote Comfort Flowsheets (Taken 06/30/2025 023 by Denae Lowe, TIERA) Pain Management Interventions: medication (see MAR) Problem: [...] RN Isolation Precautions: precautions maintained protective Taken 06/29/2025 173 by Kassandra Handy RN Infection Management: aseptic [...] awakenings minimized Taken 06/29/20251737 by Kassandra Handy, cereal miller Review/Management: medications reviewed * Progress Notes - [...] Prevent Infection Flowsheets (Taken 06/29/2025 152 by Tneisha Amador, TIERA) Infection Prevention: environmental surveillance performed Goal: Optimal Comfort and Wellbeing Outcome: Ongoing, Progressing Intervention: Monitor Pain and Promote Comfort Flowsheets (Taken 06/29/2025 152 by Tenisha Amador, TIERA) Pain Management Interventions: [...] Promote and Optimize Oral Intake Flowsheets Taken 06/29/2025 173 by Kassandra Handy RN Nutrition Interventions: supplemental [...] Note Scout Lowe 70 y.o. male CSN: [id number] Room/Bed 205/205 Nutrition evaluation type: assessment Reason [...] Supplemental oxygen O2 Delivery Method: Nasal cannula [place] Coma Scale Score: 15 GI Symptoms: Cramping [...] 34.69 Weight Evaluation: Obese-Class 1 (BMI 30-34.9) [place] Body Weight (kg): 72.7 Percent [place] Body Weight: 147 Wt Readings from Last [...] Regular Adult Carbohydrate Restriction: Consistent CHO 2 (7803-4807 Duong, 80 g/meal) Fat Restriction: Low fat Modified Calorie/ Protein: High calorie, high protein Diet Experience and Nutrition History: Diet Education Provided: Will monitor Pertinent home medications: Restorationism needs: Nutrition Focused Physical Exam: Unable to [...] admin instructions * Progress Notes - Robert Barron, PharmD - 06/29/2025 6:34 AM EDT Pharmacokinetic [...] pressor support, who presented who presents to [facility] on on 06/28/2025 with chief complaint [...] since 05/29/25 Location Start Date End Date [facility]) 06/01/25 06/02/25 Allergies: Patient has no [...] Procedure Component Value Units Date/Time Urine Culture [id number] Collected: 06/29/25 0200 Order Status: Sent Specimen: Urine, Clean Catch Updated: 06/29/25 0401 Blood Culture (Aerobic/Anaerobet Set) [id number] Collected: 06/28/252138 Order Status: Completed Specimen: Blood from Arm, Right Updated: 06/29/25 0009 Culture Culture in lab Blood Culture (Aerobic/Anaerobet Set) [id number] Collected: 06/28/252138 Order Status: Completed Specimen: Blood [...] pressor support, who presented who presents to [facility] on on 06/28/2025 with chief complaint [...] 750 mg, Oral, 4 times daily PRN qodrvvwbydks-swii-eclgjzil-folic acid (Centrum) chewable tablet 1 tablet, Daily [...] Center 07/02/2025 9:10 AM Patricia Strauss APRN [facility] 07/22/2025 7:[address] [facility] 07/22/2025 8:45 AM Dyllan Paul [facility] Gutier[facility] APRN, DNP [1] Past Medical [...] MD Consult ordered by: Kj Santos MD [facility] Urology Consult Note 06/29/25 Service Requesting [...] 750 mg, Oral, 4 times daily PRN dwkyizqgictc-edgk-uvprqjkc-folic acid (Centrum) chewable tablet 1 tablet, Daily [...] days Lab Units 06/29/25 0200 COLOR UA [place] SPEC GRAV U 1.030 PH UA 5.5 PROTEIN UR mg/dL Trace* GLUCOSE UA mg/dL Negative KETONES UA mg/dL Trace* LEUKOCYTES UA Small* NITRITE UA Negative Results from last 7 days Lab Units 06/29/25 0200 COLOR UA [place] SPEC GRAV U 1.030 PH UA 5.5 [...] Total DLP (Dose-Length Product): 2949.46 mGy.cm (accession [id number]), 2949.46 mGy.cm (accession [id number]). Please note: The reported value represents the [...] fluid Eugene Ruggiero MD Urology PGY-3 Pager: [phone] - I addended plan after rounding with attending Dr. Hilario- MPJorden Hansen MD Department of Urology, PGY-1 Pager: [phone] [1] Past Medical History: Diagnosis Date Cancer [...] 4 mg 4 mg Intravenous Given 06/28/2025 230 EDT lactated Ringer's infusion 1,000 mL 0 [...] at 12.3 [BN] 2350 CMP(!) LALITA with Hot Wort Settler 1.49 (already getting IVF repletion). Sodium 131, [...] w/u notable for: WBC 24k, LALITA with Hot Wort Settler 1.49, Na 131, CRP 63.6, UA with [...] malaise. 100.8 at home. Tylenol 325mg given continuous improvement manager 98.5 in triage, pt 92% on room, pt d/c around 96/97% per . Tachy at 112 BG documented in this encounter Plan of Treatment Upcoming Encounters Date Type Department Care Team (Latest Contact Info) Description 08/14/2025 12:25 PM EDT Hospital Encounter PAV S Operating [address] [place] [address] Dyllan Paul MD [address] [address] 08/14/2025 12:25 PM EDT - 08/14/2025 1:55 PM EDT Surgery PAV S Operating Room [address] [place] [address] Dyllan Paul MD [address] [address] URETEROSCOPY, WITH LASER LITHOTRIPSY [50206 (CPT )] 10/28/2025 8:00 AM EST Office Visit [facility] [address] [place] [address] Pavan Aldrich MD [address] [facility] [address] [place] [address] Scheduled Procedures Name Priority Associated [...] 07/03/2025 6:12 PM EDT Right ureteral stone [place] OPEN BLADDER,REMV CALCULUS 07/03/2025 5:10 PM EDT Right ureteral stone Special Needs Cmax [place] CYSTOSCOPY,INSERT URETERAL STENT 07/03/2025 5:10 PM EDT [...] CBC W/O Differential (07/04/2025 5:26 AM EDT) [facility] WBC Count 10.13 3.70 - 10.30 10*3/uL LAB HEMATOLOGY METHOD 07/04/2025 5:48 AM EDT [facility] RBC Count 3.46(L) 4.60 - 6.10 10*6/uL LAB HEMATOLOGY METHOD 07/04/2025 5:48 AM EDT [facility] HGB 11.3(L) 13.7 - 17.5 g/dL LAB HEMATOLOGY METHOD 07/04/2025 5:48 AM EDT [facility] HCT 33.0(L) 40.0 - 51.0 % LAB HEMATOLOGY METHOD 07/04/2025 5:48 AM EDT [facility] Platelet Count 114(L) 155 - 369 10*3/uL LAB HEMATOLOGY METHOD 07/04/2025 5:48 AM EDT [facility] MCV 95 79 - 98 fL LAB HEMATOLOGY METHOD 07/04/2025 5:48 AM EDT [facility] MCH 32.7(H) 26.0 - 32.0 pg LAB HEMATOLOGY METHOD 07/04/2025 5:48 AM EDT [facility] MCHC 34.2 30.7 - 35.5 g/dL LAB HEMATOLOGY METHOD 07/04/2025 5:48 AM EDT [facility] RDW 15.7(H) 11.5 - 14.5 % LAB HEMATOLOGY METHOD 07/04/2025 5:48 AM EDT [facility] MPV 11.0 8.8 - 12.5 fL LAB HEMATOLOGY METHOD 07/04/2025 5:48 AM EDT [facility] nRBC 0.0 <=0.0 per 100 WBCs LAB HEMATOLOGY METHOD 07/04/2025 5:48 AM EDT [facility] Blood Venous blood specimen / Unknown Venipuncture / Unknown 07/04/2025 5:26 AM EDT 07/04/2025 5:37 AM EDT us Quentin Anderson MD LAB BLOOD ORDERABLES Final Result [facility] [address] [place] [address] * (ABNORMAL) Comprehensive Metabolic Panel, Plasma (07/04/2025 5:26 AM EDT) Glucose, Plasma 147(H) 74 - 99 mg/dL 07/04/2025 6:07 AM EDT [facility] BUN, Plasma 41(H) 8 - 23 mg/dL 07/04/2025 6:07 AM EDT [facility] Creatinine, Plasma 1.83(H) 0.70 - 1.20 mg/dL 07/04/2025 6:07 AM EDT [facility] BUN/Creatinine Ratio 22 07/04/2025 6:07 AM EDT [facility] Sodium, Plasma 127(L) 136 - 145 mmol/L 07/04/2025 6:07 AM EDT [facility] Potassium, Plasma 4.3 3.6 - 4.9 mmol/L 07/04/2025 6:07 AM EDT [facility] Chloride, Plasma 98 97 - 107 mmol/L 07/04/2025 6:07 AM EDT [facility] CO2, Plasma 18(L) 22 - 29 mmol/L 07/04/2025 6:07 AM EDT [facility] Anion Gap 11 6 - 16 mmol/L 07/04/2025 6:07 AM EDT [facility] Total Calcium, Plasma 7.6(L) 8.9 - 10.2 mg/dL 07/04/2025 6:07 AM EDT [facility] Total Protein 4.8(L) 6.3 - 7.9 g/dL 07/04/2025 6:07 AM EDT [facility] Albumin, Plasma 2.3(L) 3.5 - 5.2 g/dL 07/04/2025 6:07 AM EDT [facility] AST, Plasma 41 10 - 50 U/L 07/04/2025 6:07 AM EDT [facility] ALT, Plasma 24 10 - 50 U/L 07/04/2025 6:07 AM EDT [facility] Alkaline Phosphatase, Plasma 133(H) 40 - 115 U/L 07/04/2025 6:07 AM EDT [facility] Total Bilirubin, Plasma 1.2(H) 0.2 - 1.1 mg/dL 07/04/2025 6:07 AM EDT [facility] eGFRcr 39.2 mL/min/1.7 3m*2 07/04/2025 6:07 AM EDT [facility] Comment:Reported eGFRcr in m L/min/1.73m2 is based the CKD-EPI 2020 equation that does not use a race coefficient. Blood Venous blood specimen / Unknown Venipuncture / Unknown 07/04/2025 5:26 AM EDT 07/04/2025 5:35 AM EDT us Quentin Anderson MD LAB BLOOD ORDERABLES Final Result [facility] [address] [place] [address] * [place] Less than 1 Hour Intraoperative (07/03/2025 6:15 PM EDT) Narrative IMAGING - 07/03/2025 6:17 PM EDT Images were obtained for surgical purposes. See Dyllan Paul's surgical note in the patient's chart for the findings. Dyllan Paul MD IMG FLUOROSCOPY PROCEDURES Fi nal Result IMAGING * Calculi (Kidney Stone) Analysis (07/03/2025 6:12 PM EDT) Calculi Mass 807 mg 07/08/2025 6:16 PM EDT [facility] ([facility]) Calculi Description See Note 07/08/2025 6:16 PM EDT [facility] ([facility]) Calculi Composition See Note 07/08/2025 6:16 PM [address] [facility] ([employer]) Calculus Urinary bladder structure / Unknown 07/03/2025 6:12 PM EDT 07/03/2025 6:35 PM EDT Comment:Pre-op diagnosis: Right ureteral stone [N20.1] Narrative [facility] ([employer]) - 07/08/2025 6:16 PM EDT Specimen consists [...] composition determined by FTIR analysis. Performed By: [employer] [address] [id number] Taping Supervisor: Sotero Banuelos MD, PhD CLIA Number: [id number] Dyllan Paul MD LAB REF LAB BLOOD AND FLUID O RD Final Result Performing Organization Address City/[facility]/ZIP Co de Phone Number [employer]) [address] [place] [address] * (ABNORMAL) Prothrombin Time/INR (07/03/2025 6:21 AM EDT) Prothrombin Time 21.7(H) 12.0 - 14.3 sec LAB COAGULATION METHOD 07/03/2025 6:47 AM EDT [facility] INR 1.9(H) 0.9 - 1.1 LAB COAGULATION METHOD 07/03/2025 6:47 AM EDT [facility] Blood Venous blood specimen / Unknown Venipuncture / Unknown 07/03/2025 6:21 AM EDT 07/03/2025 6:30 AM EDT Narrative [facility] - 07/03/2025 6:47 AM EDT OPTIMAL INR RANGES FOR PATIENT ON ORAL ANTICOAGULANT THERAPY Prevention of venous thromboembolism INR 2.0 to 3.0 In patients with heart disease: Atrial fibrillation INR 2.0 to 3.0 Valvular heart disease INR 2.0 to 3.0 Tissue heart valves INR 2.0 to 3.0 Mechanical prosthetic valves INR 2.5 to 3.5 Prevention of recurrent VT INR 2.5 to 3.5 us Quentin Anderson MD LAB BLOOD ORDERABLES Final Result [facility] [address] [place] [address] * (ABNORMAL) CBC W/O Differential (07/03/2025 6:21 AM EDT) WBC Count 10.55(H) 3.70 - 10.30 10*3/uL LAB HEMATOLOGY METHOD 07/03/2025 6:40 AM EDT [facility] RBC Count 3.41(L) 4.60 - 6.10 10*6/uL LAB HEMATOLOGY METHOD 07/03/2025 6:40 AM EDT [facility] HGB 11.3(L) 13.7 - 17.5 g/dL LAB HEMATOLOGY METHOD 07/03/2025 6:40 AM EDT [facility] HCT 32.2(L) 40.0 - 51.0 % LAB HEMATOLOGY METHOD 07/03/2025 6:40 AM EDT [facility] Platelet Count 110(L) 155 - 369 10*3/uL LAB HEMATOLOGY METHOD 07/03/2025 6:40 AM EDT [facility] MCV 94 79 - 98 fL LAB HEMATOLOGY METHOD 07/03/2025 6:40 AM EDT [facility] MCH 33.1(H) 26.0 - 32.0 pg LAB HEMATOLOGY METHOD 07/03/2025 6:40 AM EDT [facility] MCHC 35.1 30.7 - 35.5 g/dL LAB HEMATOLOGY METHOD 07/03/2025 6:40 AM EDT [facility] RDW 15.9(H) 11.5 - 14.5 % LAB HEMATOLOGY METHOD 07/03/2025 6:40 AM EDT [facility] MPV 11.0 8.8 - 12.5 fL LAB HEMATOLOGY METHOD 07/03/2025 6:40 AM EDT [facility] nRBC 0.0 <=0.0 per 100 WBCs LAB HEMATOLOGY METHOD 07/03/2025 6:40 AM EDT [facility] Blood Venous blood specimen / Unknown Venipuncture / Unknown 07/03/2025 6:21 AM EDT 07/03/2025 6:30 AM EDT Quentin Anderson MD LAB BLOOD ORDERABLES Final Result [facility] [address] [place] [address] * (ABNORMAL) Comprehensive Metabolic Panel, Plasma (07/03/2025 6:21 AM EDT) Glucose, Plasma 90 74 - 99 mg/dL 07/03/2025 7:00 AM EDT [facility] BUN, Plasma 36(H) 8 - 23 mg/dL 07/03/2025 7:00 AM EDT [facility] Creatinine, Plasma 1.54(H) 0.70 - 1.20 mg/dL 07/03/2025 7:00 AM EDT [facility] BUN/Creatinine Ratio 23 07/03/2025 7:00 AM EDT [facility] Sodium, Plasma 128(L) 136 - 145 mmol/L 07/03/2025 7:00 AM EDT [facility] Potassium, Plasma 3.8 3.6 - 4.9 mmol/L 07/03/2025 7:00 AM EDT [facility] Chloride, Plasma 98 97 - 107 mmol/L 07/03/2025 7:00 AM EDT [facility] CO2, Plasma 19(L) 22 - 29 mmol/L 07/03/2025 7:00 AM EDT [facility] Anion Gap 11 6 - 16 mmol/L 07/03/2025 7:00 AM EDT [facility] Total Calcium, Plasma 7.5(L) 8.9 - 10.2 mg/dL 07/03/2025 7:00 AM EDT [facility] Total Protein 4.8(L) 6.3 - 7.9 g/dL 07/03/2025 7:00 AM EDT [facility] Albumin, Plasma 2.2(L) 3.5 - 5.2 g/dL 07/03/2025 7:00 AM EDT [facility] AST, Plasma 42 10 - 50 U/L 07/03/2025 7:00 AM EDT [facility] Comment:Hemolyzed, result ma y be falsely increased. ALT, Plasma 24 10 - 50 U/L 07/03/2025 7:00 AM EDT [facility] Alkaline Phosphatase, Plasma 128(H) 40 - 115 U/L 07/03/2025 7:00 AM EDT [facility] Total Bilirubin, Plasma 1.4(H) 0.2 - 1.1 mg/dL 07/03/2025 7:00 AM EDT [facility] eGFRcr 48.2 mL/min/1.7 3m*2 07/03/2025 7:00 AM EDT [facility] Comment:Reported eGFRcr in m L/min/1.73m2 is based the CKD-EPI 2020 equation that does not use a race coefficient. Blood Venous blood specimen / Unknown Venipuncture / Unknown 07/03/2025 6:21 AM EDT 07/03/2025 6:30 AM EDT us Quentin Anderson MD LAB BLOOD ORDERABLES Final Result [facility] [address] [place] [address] * (ABNORMAL) Comprehensive Metabolic Panel, Plasma (07/02/2025 5:01 AM EDT) [facility] Glucose, Plasma 93 74 - 99 mg/dL 07/02/2025 6:19 AM EDT [facility] BUN, Plasma 31(H) 8 - 23 mg/dL 07/02/2025 6:19 AM EDT [facility] Creatinine, Plasma 1.34(H) 0.70 - 1.20 mg/dL 07/02/2025 6:19 AM EDT [facility] BUN/Creatinine Ratio 23 07/02/2025 6:19 AM EDT [facility] Sodium, Plasma 129(L) 136 - 145 mmol/L 07/02/2025 6:19 AM EDT [facility] Potassium, Plasma 3.7 3.6 - 4.9 mmol/L 07/02/2025 6:19 AM T [facility] Chloride, Plasma 102 97 - 107 mmol/L 07/02/2025 6:19 AM EDT [facility] CO2, Plasma 20(L) 22 - 29 mmol/L 07/02/2025 6:19 AM EDT [facility] Anion Gap 7 6 - 16 mmol/L 07/02/2025 6:19 AM T [facility] Total Calcium, Plasma 7.1(L) 8.9 - 10.2 mg/dL 07/02/2025 6:19 AM T [facility] Total Protein 4.7(L) 6.3 - 7.9 g/dL 07/02/2025 6:19 AM T [facility] Albumin, Plasma 2.2(L) 3.5 - 5.2 g/dL 07/02/2025 6:19 AM EDT [facility] AST, Plasma 37 10 - 50 U/L 07/02/2025 6:19 AM EDT [facility] ALT, Plasma 26 10 - 50 U/L 07/02/2025 6:19 AM EDT [facility] Alkaline Phosphatase, Plasma 114 40 - 115 U/L 07/02/2025 6:19 AM EDT [facility] Total Bilirubin, Plasma 1.7(H) 0.2 - 1.1 mg/dL 07/02/2025 6:19 AM EDT [facility] eGFRcr 57.0 mL/min/1.7 3m*2 07/02/2025 6:19 AM EDT [facility] Comment:Reported eGFRcr in m L/min/1.73m2 is based the CKD-EPI 2020 equation that does not use a race coefficient. Blood Venous blood specimen / Unknown Venipuncture / Unknown 07/02/2025 5:01 AM EDT 07/02/2025 5:12 AM EDT us Quentin Anderson MD LAB BLOOD ORDERABLES Final Result [facility] [address] [place] [address] * (ABNORMAL) CBC and Differential (07/01/2025 4:59 AM EDT) WBC Count 14.93(H) 3.70 - 10.30 10*3/uL LAB HEMATOLOGY METHOD 07/01/2025 5:17 AM EDT [facility] RBC Count 3.42(L) 4.60 - 6.10 10*6/uL LAB HEMATOLOGY METHOD 07/01/2025 5:17 AM EDT [facility] HGB 11.1(L) 13.7 - 17.5 g/dL LAB HEMATOLOGY METHOD 07/01/2025 5:17 AM EDT [facility] HCT 32.6(L) 40.0 - 51.0 % LAB HEMATOLOGY METHOD 07/01/2025 5:17 AM EDT [facility] Platelet Count 112(L) 155 - 369 10*3/uL LAB HEMATOLOGY METHOD 07/01/2025 5:17 AM EDT [facility] MCV 95 79 - 98 fL LAB HEMATOLOGY METHOD 07/01/2025 5:17 AM EDT [facility] MCH 32.5(H) 26.0 - 32.0 pg LAB HEMATOLOGY METHOD 07/01/2025 5:17 AM EDT [facility] MCHC 34.0 30.7 - 35.5 g/dL LAB HEMATOLOGY METHOD 07/01/2025 5:17 AM EDT [facility] RDW 15.8(H) 11.5 - 14.5 % LAB HEMATOLOGY METHOD 07/01/2025 5:17 AM EDT [facility] MPV 11.2 8.8 - 12.5 fL LAB HEMATOLOGY METHOD 07/01/2025 5:17 AM EDT [facility] nRBC 0.1(H) <=0.0 per 100 WBCs LAB HEMATOLOGY METHOD 07/01/2025 5:17 AM EDT [facility] Differential Type Automated LAB HEMATOLOGY METHOD 07/01/2025 5:17 AM EDT [facility] Neutrophils % 54 % LAB HEMATOLOGY METHOD 07/01/2025 5:17 AM EDT [facility] Lymphocytes % 30 % LAB HEMATOLOGY METHOD 07/01/2025 5:17 AM EDT [facility] Monocytes % 9 % LAB HEMATOLOGY METHOD 07/01/2025 5:17 AM EDT [facility] Eosinophils % 5 % LAB HEMATOLOGY METHOD 07/01/2025 5:17 AM EDT [facility] Basophils % 1 % LAB HEMATOLOGY METHOD 07/01/2025 5:17 AM EDT [facility] Immature Granulocytes % 1 % LAB HEMATOLOGY METHOD 07/01/2025 5:17 AM EDT [facility] Neutrophils Absolute 8.14(H) 1.60 - 6.10 10*3/uL LAB HEMATOLOGY METHOD 07/01/2025 5:17 AM EDT [facility] Lymphocytes Absolute 4.47(H) 1.20 - 3.90 10*3/uL LAB HEMATOLOGY METHOD 07/01/2025 5:17 AM EDT [facility] Monocytes Absolute 1.40(H) 0.30 - 0.90 10*3/uL LAB HEMATOLOGY METHOD 07/01/2025 5:17 AM EDT [facility] Eosinophils Absolute 0.74(H) 0.00 - 0.50 10*3/uL LAB HEMATOLOGY METHOD 07/01/2025 5:17 AM EDT [facility] Basophils Absolute 0.08 0.00 - 0.10 10*3/uL LAB HEMATOLOGY METHOD 07/01/2025 5:17 AM EDT [facility] Immature Granulocytes Absolute 0.10(H) 0.00 - 0.06 10*3/uL LAB HEMATOLOGY METHOD 07/01/2025 5:17 AM EDT [facility] Blood Venous blood specimen / Unknown Venipuncture / Unknown 07/01/2025 4:59 AM EDT 07/01/2025 5:06 AM EDT Narrative [facility] - 07/01/2025 5:17 AM EDT Therapeutic decision making should be based on absolute values, rather than percentages. Lizzie Biggs MD LAB BLOOD ORDERABLES Fi nal Result [facility] [address] [place] [address] * (ABNORMAL) Comprehensive Metabolic Panel, Plasma (07/01/2025 4:59 AM EDT) Glucose, Plasma 106(H) 74 - 99 mg/dL 07/01/2025 5:35 AM EDT [facility] BUN, Plasma 28(H) 8 - 23 mg/dL 07/01/2025 5:35 AM EDT [facility] Creatinine, Plasma 1.31(H) 0.70 - 1.20 mg/dL 07/01/2025 5:35 AM EDT [facility] BUN/Creatinine Ratio 21 07/01/2025 5:35 AM EDT [facility] Sodium, Plasma 128(L) 136 - 145 mmol/L 07/01/2025 5:35 AM EDT [facility] Potassium, Plasma 4.2 3.6 - 4.9 mmol/L 07/01/2025 5:35 AM EDT [facility] Chloride, Plasma 98 97 - 107 mmol/L 07/01/2025 5:35 AM EDT [facility] CO2, Plasma 20(L) 22 - 29 mmol/L 07/01/2025 5:35 AM EDT [facility] Anion Gap 10 6 - 16 mmol/L 07/01/2025 5:35 AM EDT [facility] Total Calcium, Plasma 7.5(L) 8.9 - 10.2 mg/dL 07/01/2025 5:35 AM EDT [facility] Total Protein 4.8(L) 6.3 - 7.9 g/dL 07/01/2025 5:35 AM EDT [facility] Albumin, Plasma 2.3(L) 3.5 - 5.2 g/dL 07/01/2025 5:35 AM EDT [facility] AST, Plasma 38 10 - 50 U/L 07/01/2025 5:35 AM EDT [facility] Comment:Hemolyzed, result ma y be falsely increased. ALT, Plasma 31 10 - 50 U/L 07/01/2025 5:35 AM EDT [facility] Alkaline Phosphatase, Plasma 124(H) 40 - 115 U/L 07/01/2025 5:35 AM EDT [facility] Total Bilirubin, Plasma 2.1(H) 0.2 - 1.1 mg/dL 07/01/2025 5:35 AM EDT [facility] eGFRcr 58.6 mL/min/1.7 3m*2 07/01/2025 5:35 AM EDT [facility] Comment:Reported eGFRcr in m L/min/1.73m2 is based the CKD-EPI 2020 equation that does not use a race coefficient. Blood Venous blood specimen / Unknown Venipuncture / Unknown 07/01/2025 4:59 AM EDT 07/01/2025 5:06 AM EDT us Lizzie Biggs MD LAB BLOOD ORDERABLES Fi nal Result Performing Organization Address [facility] Co de Phone Number [facility] [address] [place] [address] * (ABNORMAL) Magnesium, Plasma (07/01/2025 4:59 AM EDT) Magnesium, Plasma 2.7(H) 1.9 - 2.4 mg/dL 07/01/2025 5:35 AM EDT [facility] Blood Venous blood specimen / Unknown Venipuncture / Unknown 07/01/2025 4:59 AM EDT 07/01/2025 5:06 AM EDT us Lizzie Biggs MD LAB BLOOD ORDERABLES Fi nal Result Performing Organization Address City/[facility]/ZIP Co de Phone Number [facility] [address] [place] [address] * Phosphorus, Plasma (07/01/2025 4:59 AM EDT) Phosphorus, Plasma 3.0 2.5 - 4.5 mg/dL 07/01/2025 5:35 AM EDT [facility] Blood Venous blood specimen / Unknown Venipuncture / Unknown 07/01/2025 4:59 AM EDT 07/01/2025 5:06 AM EDT Lizzie Biggs MD LAB BLOOD ORDERABLES Fi nal Result Performing Organization Address City/[facility]/ZIP Co de Phone Number [facility] [address] [place] [address] * Urinalysis Microscopic Examination (06/30/2025 6:20 PM EDT) Urine Urine specimen obtained by clean catch procedure / Unknown Non-blood Collection / Unknown 06/30/2025 6:20 PM EDT 06/30/2025 6:52 PM EDT Lizzie Biggs MD LAB URINE ORDERABLES Fi nal Result Performing Organization Address City/[facility] Co de Phone Number [facility] [address] [place] [address] * (ABNORMAL) Urinalysis with reflex microscopic (Culture NOT Included) (06/30/2025 6:20 PM EDT) Color, Urine Dark Yellow LAB URINALYSIS - AUTOMATED METHOD 06/30/2025 7:28 PM EDT [facility] Clarity, Urine Cloudy LAB URINALYSIS - AUTOMATED METHOD 06/30/2025 7:28 PM EDT [facility] Spec [place], Urine >1.030(H) 1.005 - 1.030 LAB URINALYSIS - AUTOMATED METHOD 06/30/2025 7:28 PM EDT [facility] pH, Urine 6.0 5.0 - 8.0 LAB URINALYSIS - AUTOMATED METHOD 06/30/2025 7:28 PM EDT [facility] Protein, Urine 30(A) Negative mg/dL LAB URINALYSIS - AUTOMATED METHOD 06/30/2025 7:28 PM EDT [facility] Glucose, Urine Negative Negative mg/dL LAB URINALYSIS - AUTOMATED METHOD 06/30/2025 7:28 PM EDT [facility] Ketones, Urine Trace(A) Negative mg/dL LAB URINALYSIS - AUTOMATED METHOD 06/30/2025 7:28 PM EDT [facility] Blood, Urine Moderate(A) Negative LAB URINALYSIS - AUTOMATED METHOD 06/30/2025 7:28 PM EDT [facility] Bilirubin, Urine Small(A) Negative LAB URINALYSIS - AUTOMATED METHOD 06/30/2025 7:28 PM EDT [facility] Urobilinogen, Urine 1.0 0.2 to 1.0 mg/dL LAB URINALYSIS - AUTOMATED METHOD 06/30/2025 7:28 PM EDT [facility] Leukocytes, Urine Moderate(A) Negative LAB URINALYSIS - AUTOMATED METHOD 06/30/2025 7:28 PM EDT [facility] Nitrite, Urine Negative Negative LAB URINALYSIS - AUTOMATED METHOD 06/30/2025 7:28 PM EDT [facility] RBC, Urine >50(A) 0 to 3 /HPF LAB URINALYSIS - AUTOMATED METHOD 06/30/2025 7:28 PM EDT [facility] WBC, Urine 21 - 50(A) 0 to 5 /HPF LAB URINALYSIS - AUTOMATED METHOD 06/30/2025 7:28 PM EDT [facility] Squamous Epithelial Cells 0 - 2 0 to 5 /HPF LAB URINALYSIS - AUTOMATED METHOD 06/30/2025 7:28 PM EDT [facility] Hyaline Casts 6 - 10(A) 0 to 5 /LPF LAB URINALYSIS - AUTOMATED METHOD 06/30/2025 7:28 PM EDT [facility] Bacteria, Urine Present Negative LAB URINALYSIS - AUTOMATED METHOD 06/30/2025 7:28 PM EDT [facility] Renal Tubular Cells Present Absent 06/30/2025 7:28 PM EDT [facility] Yeast (Budding and/or Pseudohyphae) Present(A) Absent 06/30/2025 7:28 PM EDT [facility] Urine Urine specimen obtained by clean catch procedure / Unknown Non-blood Collection / Unknown 06/30/2025 6:20 PM EDT 06/30/2025 6:52 PM EDT Narrative [facility] - 06/30/2025 7:28 PM EDT Performed by manual method Lizzie Biggs MD LAB URINE ORDERABLES Fi nal Result Performing Organization Address City/[facility]/ZIP Co de Phone Number [facility] [address] [place] [address] * Lactate, venous (06/30/2025 3:11 PM EDT) Lactate, Venous, Whole Blood 1.4 0.5 - 2.2 mmol/L LAB HEMATOLOGY METHOD 06/30/2025 3:25 PM EDT [facility] Blood Venous blood specimen / Unknown Venipuncture / Unknown 06/30/2025 3:11 PM EDT 06/30/2025 3:23 PM EDT Lizzie Biggs MD LAB BLOOD ORDERABLES Fi nal Result Performing Organization Address City/[facility]/[place] [address] * Phosphorus, Plasma (06/30/2025 3:11 PM EDT) Phosphorus, Plasma 3.0 2.5 - 4.5 mg/dL 06/30/2025 4:40 PM EDT [facility] Blood Venous blood specimen / Unknown Venipuncture / Unknown 06/30/2025 3:11 PM EDT 06/30/2025 3:34 PM EDT Lizzie Biggs MD LAB BLOOD ORDERABLES Fi nal Result Performing Organization Address City/[facility]/ZIP Co de Phone Number [facility] [address] [place] [address] * (ABNORMAL) CBC and Differential (06/30/2025 3:11 PM EDT) WBC Count 15.42(H) 3.70 - 10.30 10*3/uL LAB HEMATOLOGY METHOD 06/30/2025 7:40 PM EDT [facility] RBC Count 2.92(L) 4.60 - 6.10 10*6/uL LAB HEMATOLOGY METHOD 06/30/2025 7:40 PM EDT [facility] HGB 9.6(L) 13.7 - 17.5 g/dL LAB HEMATOLOGY METHOD 06/30/2025 7:40 PM EDT [facility] HCT 28.0(L) 40.0 - 51.0 % LAB HEMATOLOGY METHOD 06/30/2025 7:40 PM EDT [facility] Platelet Count 100(L) 155 - 369 10*3/uL LAB HEMATOLOGY METHOD 06/30/2025 7:40 PM EDT [facility] MCV 96 79 - 98 fL LAB HEMATOLOGY METHOD 06/30/2025 7:40 PM EDT [facility] MCH 32.9(H) 26.0 - 32.0 pg LAB HEMATOLOGY METHOD 06/30/2025 7:40 PM EDT [facility] MCHC 34.3 30.7 - 35.5 g/dL LAB HEMATOLOGY METHOD 06/30/2025 7:40 PM EDT [facility] RDW 15.9(H) 11.5 - 14.5 % LAB HEMATOLOGY METHOD 06/30/2025 7:40 PM EDT [facility] MPV 12.0 8.8 - 12.5 fL LAB HEMATOLOGY METHOD 06/30/2025 7:40 PM EDT [facility] nRBC 0.5(H) <=0.0 per 100 WBCs LAB HEMATOLOGY METHOD 06/30/2025 7:40 PM EDT [facility] Differential Type Automated LAB HEMATOLOGY METHOD 06/30/2025 7:40 PM EDT [facility] Neutrophils % 51 % LAB HEMATOLOGY METHOD 06/30/2025 7:40 PM EDT [facility] Lymphocytes % 34 % LAB HEMATOLOGY METHOD 06/30/2025 7:40 PM EDT [facility] Monocytes % 9 % LAB HEMATOLOGY METHOD 06/30/2025 7:40 PM EDT [facility] Eosinophils % 4 % LAB HEMATOLOGY METHOD 06/30/2025 7:40 PM EDT [facility] Basophils % 1 % LAB HEMATOLOGY METHOD 06/30/2025 7:40 PM EDT [facility] Immature Granulocytes % 1 % LAB HEMATOLOGY METHOD 06/30/2025 7:40 PM EDT [facility] Neutrophils Absolute 8.05(H) 1.60 - 6.10 10*3/uL LAB HEMATOLOGY METHOD 06/30/2025 7:40 PM EDT [facility] Lymphocytes Absolute 5.22(H) 1.20 - 3.90 10*3/uL LAB HEMATOLOGY METHOD 06/30/2025 7:40 PM EDT [facility] Monocytes Absolute 1.32(H) 0.30 - 0.90 10*3/uL LAB HEMATOLOGY METHOD 06/30/2025 7:40 PM EDT [facility] Eosinophils Absolute 0.68(H) 0.00 - 0.50 10*3/uL LAB HEMATOLOGY METHOD 06/30/2025 7:40 PM EDT [facility] Basophils Absolute 0.07 0.00 - 0.10 10*3/uL LAB HEMATOLOGY METHOD 06/30/2025 7:40 PM EDT [facility] Immature Granulocytes Absolute 0.08(H) 0.00 - 0.06 10*3/uL LAB HEMATOLOGY METHOD 06/30/2025 7:40 PM EDT [facility] Blood Venous blood specimen / Unknown Venipuncture / Unknown 06/30/2025 3:11 PM EDT 06/30/2025 3:37 PM EDT Narrative [facility] - 06/30/2025 7:40 PM EDT Therapeutic decision making should be based on absolute values, rather than percentages. us Lizzie Biggs MD LAB BLOOD ORDERABLES Fi nal Result [facility] [address] [place] [address] * (ABNORMAL) Basic Metabolic Panel, Plasma (06/30/2025 3:11 PM EDT) Pathologist [facility] Glucose, Plasma 101(H) 74 - 99 mg/dL 06/30/2025 4:40 PM EDT [facility] BUN, Plasma 25(H) 8 - 23 mg/dL 06/30/2025 4:40 PM EDT [facility] Creatinine, Plasma 1.08 0.70 - 1.20 mg/dL 06/30/2025 4:40 PM EDT [facility] BUN/Creatinine Ratio 23 06/30/2025 4:40 PM EDT [facility] Sodium, Plasma 130(L) 136 - 145 mmol/L 06/30/2025 4:40 PM EDT [facility] Potassium, Plasma 3.2(L) 3.6 - 4.9 mmol/L 06/30/2025 4:40 PM EDT [facility] Chloride, Plasma 111(H) 97 - 107 mmol/L 06/30/2025 4:40 PM EDT [facility] CO2, Plasma 18(L) 22 - 29 mmol/L 06/30/2025 4:40 PM EDT [facility] Anion Gap 1(L) 6 - 16 mmol/L 06/30/2025 4:40 PM EDT [facility] Total Calcium, Plasma 6.3(L) 8.9 - 10.2 mg/dL 06/30/2025 4:40 PM EDT [facility] eGFRcr 73.8 mL/min/1.7 3m*2 06/30/2025 4:40 PM EDT [facility] Comment:Reported eGFRcr in m L/min/1.73m2 is based the CKD-EPI 2020 equation that does not use a race coefficient. Blood Venous blood specimen / Unknown Venipuncture / Unknown 06/30/2025 3:11 PM EDT 06/30/2025 3:34 PM EDT us Lizzie Biggs MD LAB BLOOD ORDERABLES Fi nal Result [facility] [address] [place] [address] * (ABNORMAL) Magnesium, Plasma (06/30/2025 3:11 PM EDT) Magnesium, Plasma 1.7(L) 1.9 - 2.4 mg/dL 06/30/2025 4:40 PM EDT [facility] Blood Venous blood specimen / Unknown Venipuncture / Unknown 06/30/2025 3:11 PM EDT 06/30/2025 3:34 PM EDT Lizzie Biggs MD LAB BLOOD ORDERABLES Fi nal Result Performing Organization Address City/[facility]/ZIP Co de Phone Number [facility] [address] [place] [address] * Vancomycin, random (06/30/2025 12:48 PM EDT) Vancomycin, Random, Plasma 13.3 ug/mL 06/30/2025 3:07 PM EDT [facility] Blood Venous blood specimen / Unknown Venipuncture / Unknown 06/30/2025 12:48 PM EDT 06/30/2025 12:58 PM EDT Jennifer Mcrgath MD LAB BLOOD ORDERABLES Final Resu lt Performing Organization Address [facility] Co de Phone Number [facility] [address] [place] [address] * (ABNORMAL) Cystatin C (06/30/2025 6:01 AM EDT) Cystatin C 1.58(H) 0.61 - 0.95 mg/L 06/30/2025 6:40 AM EDT [facility] Blood Venous blood specimen / Unknown Venipuncture / Unknown 06/30/2025 6:01 AM EDT 06/30/2025 6:10 AM EDT Lizzie Biggs MD LAB BLOOD ORDERABLES Fi nal Result Performing Organization Address [facility] Co de Phone Number [facility] [address] [place] [address] * (ABNORMAL) Ammonia, Plasma (06/30/2025 6:01 AM EDT) Ammonia 64(H) 11 - 51 umol/L 06/30/2025 6:38 AM EDT [facility] Comment:Improper specimen marquez ndling may falsely increase results. Blood Venous blood specimen / Unknown Venipuncture / Unknown 06/30/2025 6:01 AM EDT 06/30/2025 6:08 AM EDT us Homero Moiz Gutierrez APRN, DNP LAB BLOOD ORDERAB LES Final Result Performing Organization Address City/[facility]/[place] [address] * Sedimentation Rate, Automated (06/30/2025 6:01 AM EDT) Sedimentation Rate 17 <20 mm/hr 2024 6:18 AM EDT [facility] Blood Venous blood specimen / Unknown Venipuncture / Unknown 06/30/2025 6:01 AM EDT 06/30/2025 6:11 AM EDT us Homeroheather Gutierrez APRN, LUDMILA LAB BLOOD ORDERAB LES Final Result Performing Organization Address [facility] [place] [address] * Vancomycin, random (06/29/2025 6:05 PM EDT) Pathologist [facility] Vancomycin, Random, Plasma 15.4 ug/mL 06/29/2025 6:42 PM EDT [facility] Blood Venous blood specimen / Unknown Venipuncture / Unknown 06/29/2025 6:05 PM EDT 06/29/2025 6:15 PM EDT us Lizzie Biggs MD LAB BLOOD ORDERABLES Fi nal Result Performing Organization Address [facility] [place] [address] * US Abdomen Focused Region Liver, Pancreas, [...] is not visualized.. Other: N/A Procedure Note Dalrene Mejia MD - 06/29/2025 CLINICAL INDICATION: upper [...] Urine 182 mg/dL 06/29/2025 1:10 PM EDT [facility] Urine Urine specimen obtained by clean catch procedure / Unknown Non-blood Collection / Unknown 06/29/2025 12:10 PM EDT 06/29/2025 12:37 PM EDT us Homero Gutierrez APRN, DNP LAB URINE ORDERAB LES Final Result [facility] [address] [place] [address] * Urea nitrogen, urine (06/29/2025 12:10 PM EDT) Urea Nitrogen, Urine 865 mg/dL 06/29/2025 1:10 PM EDT [facility] Urine Urine specimen obtained by clean catch procedure / Unknown Non-blood Collection / Unknown 06/29/2025 12:10 PM EDT 06/29/2025 12:37 PM EDT Homerocrow Gutierrez APRN, LUDMILA LAB URINE ORDERAB LES Final Result Performing Organization Address [facility] Co de Phone Number [facility] [address] [place] [address] * Methicillin Resistant Staphylococcus aureus (MRSA) by PCR (06/29/2025 9:39 AM EDT) Methicillin Resistant Staphylococcus aureus (MRSA) by PCR Not Detected Not Detected 06/29/2025 12:04 PM EDT [facility] Swab Both anterior nares / Unknown Non-blood Collection / Unknown 06/29/2025 9:39 AM EDT 06/29/2025 10:18 AM EDT Narrative [facility] - 06/29/2025 12:04 PM [...] clinical laboratory testing. us Homero Gutierrez APRN, LUDMILA LAB MICROBIOLOGY - GENERAL ORDERABLES Final Result Performing Organization Address City/[facility]/ZIP Co de Phone Number [facility] [address] [place] [address] * (ABNORMAL) Wound Culture and Gram Stain (06/29/2025 9:39 AM EDT) CULTURE READING WOUND Light Growth 07/02/2025 12:29 PM EDT [facility] CULTURE READING WOUND Staphylococcus epidermidis(A) 07/02/2025 12:29 PM EDT [facility] Comment: This isolate has been identified using the FDA Approved [employer] [place] System The organism value for this result has been updated. These results have been appended to the previously preliminary verified report. Edited result: Previously reported as Gram positive cocci on 07/01/2025 at 0744 EDT. Gram Stain Result Numerous Polymorphonuclear leukocytes(A) 07/02/2025 12:29 PM EDT [facility] Gram Stain Result Rare Gram negative rods(A) 07/02/2025 12:29 PM EDT [facility] Swab Skin structure / Unknown Non-blood Collection / Unknown 06/29/2025 9:39 AM EDT 06/29/2025 2:57 PM EDT Homero Gutierrez APRN, DNP LAB MICROBIOLOGY - GENERAL ORDERABLES Final Result Performing Organization Address [facility] Co de Phone Number [facility] [address] [place] [address] * Multi Drug Resistance Test (06/29/2025 9:39 AM EDT) Culture No growth at day 1 06/30/2025 4:16 PM EDT [facility] Swab (Nares and Cari Rectal) Non-blood Collection / Unknown 06/29/2025 9:39 AM EDT 06/29/2025 10:19 AM EDT Narrative [facility] - 06/30/2025 4:16 PM EDT This test was developed and its performance characteristics determined by the [facility] Clinical [facility]biology [facility]. Although the media is FDA-approved, it is not FDA-approved for all specimen types submitted. The FDA has determined that such clearance or approval is not necessary. This test is used for surveillance purposes. It should not be regarded as investigational or for research. The [facility] Clinical [facility]biology Laboratory is certified under the Clinical Laboratory Improvement Amendments of 1988 (CLIA-88) as qualified to perform high complexity clinical laboratory testing. us Homero Gutierrez APRN, DNP LAB MICROBIOLOGY - GENERAL ORDERABLES Final Result [facility] [address] [place] [address] * (ABNORMAL) GGT (06/29/2025 6:52 AM EDT) GGT, Plasma 116(H) 8 - 61 U/L 06/29/2025 8:35 AM EDT [facility] Blood Venous blood specimen / Unknown Venipuncture / Unknown 06/29/2025 6:52 AM EDT 06/29/2025 6:56 AM EDT us Homero N Matt SHAHN, DNP LAB BLOOD ORDERAB LES Final Result [facility] [address] [place] [address] * (ABNORMAL) Ionized calcium, whole blood (06/29/2025 6:52 AM EDT) Ionized Calcium, Whole Blood 4.1(L) 4.6 - 5.1 mg/dL LAB HEMATOLOGY METHOD 06/29/2025 7:12 AM EDT [facility] Blood Venous blood specimen / Unknown Venipuncture / Unknown 06/29/2025 6:52 AM EDT 06/29/2025 6:55 AM EDT us Homero N Matt SHAHN, DNP LAB BLOOD ORDERAB LES Final Result [facility] [address] [place] [address] * (ABNORMAL) Procalcitonin (06/29/2025 6:52 AM EDT) Procalcitonin, Plasma 2.47(H) <0.09 ng/mL 06/29/2025 7:27 AM EDT [facility] Blood Venous blood specimen / Unknown Venipuncture / Unknown 06/29/2025 6:52 AM EDT 06/29/2025 6:56 AM EDT Narrative [facility] - 06/29/2025 7:27 AM [...] predict 28 day mortality risk. Please consult [email or web address]-bhn-byzyujopqt.[email or web address] for more information. Test performed at [facility]. us Homero Gutierrez APRN, DNP LAB BLOOD ORDERAB LES Final Result Performing Organization Address [facility] Co de Phone Number [facility] [address] [place] [address] * (ABNORMAL) Cystatin C (06/29/2025 6:52 AM EDT) Cystatin C 1.5(H) 0.61 - 0.95 mg/L 06/29/2025 8:35 AM EDT [facility] Blood Venous blood specimen / Unknown Venipuncture / Unknown 06/29/2025 6:52 AM EDT 06/29/2025 6:56 AM EDT us Homero Gutierrez APRN, DNP LAB BLOOD ORDERAB LES Final Result Performing Organization Address City/[facility]/ZIP Co de Phone Number [facility] [address] [place] [address] * (ABNORMAL) Basic metabolic panel (06/29/2025 6:52 AM EDT) Glucose, Plasma 116(H) 74 - 99 mg/dL 06/29/2025 7:27 AM EDT [facility] BUN, Plasma 24(H) 8 - 23 mg/dL 06/29/2025 7:27 AM EDT [facility] Creatinine, Plasma 1.39(H) 0.70 - 1.20 mg/dL 06/29/2025 7:27 AM EDT [facility] BUN/Creatinine Ratio 17 06/29/2025 7:27 AM EDT [facility] Sodium, Plasma 131(L) 136 - 145 mmol/L 06/29/2025 7:27 AM EDT [facility] Potassium, Plasma 3.8 3.6 - 4.9 mmol/L 06/29/2025 7:27 AM EDT [facility] Chloride, Plasma 99 97 - 107 mmol/L 06/29/2025 7:27 AM EDT [facility] CO2, Plasma 22 22 - 29 mmol/L 06/29/2025 7:27 AM EDT [facility] Anion Gap 10 6 - 16 mmol/L 06/29/2025 7:27 AM EDT [facility] Total Calcium, Plasma 7.6(L) 8.9 - 10.2 mg/dL 06/29/2025 7:27 AM EDT [facility] eGFRcr 54.5 mL/min/1.7 3m*2 06/29/2025 7:27 AM EDT [facility] Comment:Reported eGFRcr in m L/min/1.73m2 is based the CKD-EPI 2020 equation that does not use a race coefficient. Blood Venous blood specimen / Unknown Venipuncture / Unknown 06/29/2025 6:52 AM EDT 06/29/2025 6:56 AM EDT us Homero Gutierrez APRN, DNP LAB BLOOD ORDERAB LES Final Result [facility] [address] [place] [address] * Lactate, venous (06/29/2025 6:52 AM EDT) Lactate, Venous, Whole Blood 1.5 0.5 - 2.2 mmol/L LAB HEMATOLOGY METHOD 06/29/2025 6:56 AM EDT [facility] Blood Venous blood specimen / Unknown Venipuncture / Unknown 06/29/2025 6:52 AM EDT 06/29/2025 6:55 AM EDT us Homero Gutierrez APRN, DNP LAB BLOOD ORDERAB LES Final Result Performing Organization Address [facility] Co de Phone Number [facility] [address] [place] [address] * SEND SELIN MESSAGE (06/29/2025 2:00 AM EDT) Urine Urine specimen obtained by clean catch procedure / Unknown Non-blood Collection / Unknown 06/29/2025 2:00 AM EDT 06/29/2025 2:22 AM EDT us Rg Coleman MD LAB URINE ORDERABLES Final Res ult Performing Organization Address [facility] [place] [address] * (ABNORMAL) Urine Culture (06/29/2025 2:00 AM EDT) Culture 10,000 - 100,000 CFU/mL Diutina rugosa (formerly Celestina rugosa)(A) 07/02/2025 8:16 AM EDT [facility] Comment:This result was dete rmined by MALDI tof mass spectrometry using the [employer] database and is for research use only. Urine Urine specimen obtained by clean catch procedure / Unknown Non-blood Collection / Unknown 06/29/2025 2:00 AM EDT 06/29/2025 2:22 AM EDT us Rg Coleman MD LAB MICROBIOLOGY - GENERAL ORD ERABLES Final Result Performing Organization Address [facility] Co de Phone Number [facility] [address] [place] [address] * Urinalysis Microscopic Examination (06/29/2025 2:00 AM EDT) Urine Urine specimen obtained by clean catch procedure / Unknown Non-blood Collection / Unknown 06/29/2025 2:00 AM EDT 06/29/2025 2:04 AM EDT us Rg Colemna MD LAB URINE ORDERABLES Final Res ult Performing Organization Address City/[facility]/ZIP Co de Phone Number [facility] [address] [place] [address] * Urine Salcedo Panel (06/29/2025 2:00 AM EDT) Extra Sent for Culture 06/29/2025 4:01 AM EDT [facility] Urine Urine specimen obtained by clean catch procedure / Unknown Non-blood Collection / Unknown 06/29/2025 2:00 AM EDT 06/29/2025 2:22 AM EDT us Rg Coleman MD LAB URINE ORDERABLES Final Res ult Performing Organization Address [facility]/ZIP Co de Phone Number [facility] [address] [place] [address] * (ABNORMAL) Urinalysis with reflex microscopic (Culture NOT Included) (06/29/2025 2:00 AM EDT) Color, Urine [place] LAB URINALYSIS - AUTOMATED METHOD 06/29/2025 3:11 AM EDT [facility] Clarity, Urine Cloudy LAB URINALYSIS - AUTOMATED METHOD 06/29/2025 3:11 AM EDT [facility] Spec [place], Urine 1.030 1.005 - 1.030 LAB URINALYSIS - AUTOMATED METHOD 06/29/2025 3:11 AM EDT [facility] pH, Urine 5.5 5.0 - 8.0 LAB URINALYSIS - AUTOMATED METHOD 06/29/2025 3:11 AM EDT [facility] Protein, Urine Trace(A) Negative mg/dL LAB URINALYSIS - AUTOMATED METHOD 06/29/2025 3:11 AM EDT [facility] Glucose, Urine Negative Negative mg/dL LAB URINALYSIS - AUTOMATED METHOD 06/29/2025 3:11 AM EDT [facility] Ketones, Urine Trace(A) Negative mg/dL LAB URINALYSIS - AUTOMATED METHOD 06/29/2025 3:11 AM EDT [facility] Blood, Urine Large(A) Negative LAB URINALYSIS - AUTOMATED METHOD 06/29/2025 3:11 AM EDT [facility] Bilirubin, Urine Small(A) Negative LAB URINALYSIS - AUTOMATED METHOD 06/29/2025 3:11 AM EDT [facility] Urobilinogen, Urine 1.0 0.2 to 1.0 mg/dL LAB URINALYSIS - AUTOMATED METHOD 06/29/2025 3:11 AM EDT [facility] Leukocytes, Urine Small(A) Negative LAB URINALYSIS - AUTOMATED METHOD 06/29/2025 3:11 AM EDT [facility] Nitrite, Urine Negative Negative LAB URINALYSIS - AUTOMATED METHOD 06/29/2025 3:11 AM EDT [facility] RBC, Urine >50(A) 0 to 3 /HPF LAB URINALYSIS - AUTOMATED METHOD 06/29/2025 3:11 AM EDT [facility] Comment:This result was prev iously suppressed from the chart. WBC, Urine 11 - 20(A) 0 to 5 /HPF LAB URINALYSIS - AUTOMATED METHOD 06/29/2025 3:11 AM EDT [facility] Comment:This result was prev iously suppressed from the chart. Squamous Epithelial Cells 0 - 2 0 to 5 /HPF LAB URINALYSIS - AUTOMATED METHOD 06/29/2025 3:11 AM EDT [facility] Comment:This result was prev iously suppressed from the chart. Hyaline Casts >20(A) 0 to 5 /LPF LAB URINALYSIS - AUTOMATED METHOD 06/29/2025 3:11 AM EDT [facility] Comment:This result was prev iously suppressed from the chart. Bacteria, Urine Negative Negative LAB URINALYSIS - AUTOMATED METHOD 06/29/2025 3:11 AM EDT [facility] Comment:This result was prev iously suppressed from the chart. Yeast (Budding and/or Pseudohyphae) Present(A) Absent 06/29/2025 3:11 AM EDT [facility] Comment:This result was prev iously suppressed from the chart. Urine Urine specimen obtained by clean catch procedure / Unknown Non-blood Collection / Unknown 06/29/2025 2:00 AM EDT 06/29/2025 2:04 AM EDT Narrative [facility] - 06/29/2025 3:11 AM EDT Urinalysis dipstick results may be inaccurate due to specimen color or an interfering substance in the specimen.Test performed by manual method Rg Coleman MD LAB URINE ORDERABLES Final Res ult Performing Organization Address [facility] de Phone Number [facility] [address] [place] [address] * (ABNORMAL) Troponin T, High Sensitivity, 2 Hour, Plasma (06/28/2025 11:57 PM EDT) Troponin T, High Sensitivity, 2 Hour 22(H) <19 ng/L 06/29/2025 12:22 AM EDT [facility] Troponin Delta 2 <10 ng/L 06/29/2025 12:22 AM EDT [facility] Troponin Delta Interpretation Not Significant 06/29/2025 12:22 AM EDT [facility] Comment:Not Significant. No acute change in troponin observed between the baseline and 2 hour samples. Blood Venous blood specimen / Unknown Venipuncture / Unknown 06/28/2025 11:57 PM EDT 06/29/2025 12:03 AM EDT Rg Coleman MD LAB BLOOD ORDERABLES Final Res ult Performing Organization Address [facility] de Phone Number [facility] [address] [place] [address] * CT Angio Abdomen Pelvis (06/28/2025 11:11 [...] Total DLP (Dose-Length Product): 2949.46 mGy.cm (accession [id number]), 2949.46 mGy.cm (accession [id number]). Please note: The reported value represents the [...] Total DLP (Dose-Length Product): 2949.46 mGy.cm (accession [id number]),2949.46 mGy.cm (accession [id number]). Please note: The reported valuerepresents the total [...] Total DLP (Dose-Length Product): 2949.46 mGy.cm (accession [id number]), 2949.46 mGy.cm (accession [id number]). Please note: The reported value represents the [...] Total DLP (Dose-Length Product): 2949.46 mGy.cm (accession [id number]),2949.46 mGy.cm (accession [id number]). Please note: The reported valuerepresents the total [...] - 63 U/L 06/29/2025 7:03 AM EDT [facility] Blood Venous blood specimen / Unknown Venipuncture / Unknown 06/28/2025 9:39 PM EDT 06/28/2025 9:47 PM EDT Homero Gutierrez APRN, DNP LAB BLOOD ORDERAB LES Final Result [facility] [address] [place] [address] * Blood Culture (Aerobic/Anaerobet Set) (06/28/2025 9:39 PM EDT) Culture No growth at day 5 07/03/2025 11:02 PM EDT [facility] Blood Structure of left hand / Unknown Venipuncture / Unknown 06/28/2025 9:39 PM EDT 06/28/2025 10:04 PM EDT Rg Coleman MD LAB MICROBIOLOGY - GENERAL ORD ERABLES Final Result [facility] [address] [place] [address] * Blood Culture (Aerobic/Anaerobet Set) (06/28/2025 9:39 PM EDT) Culture No growth at day 5 07/03/2025 11:02 PM EDT [facility] Blood Structure of part of right upper limb / Unknown Venipuncture / Unknown 06/28/2025 9:39 PM EDT 06/28/2025 10:05 PM EDT us Rg Coleman MD LAB MICROBIOLOGY - GENERAL ORD ERABLES Final Result [facility] [address] [place] [address] * (ABNORMAL) C-Reactive protein (06/28/2025 9:39 PM EDT) Pathologist [facility] CRP, Plasma 63.6(H) <=8.0 mg/L 06/28/2025 10:15 PM EDT [facility] Blood Venous blood specimen / Unknown Venipuncture / Unknown 06/28/2025 9:39 PM EDT 06/28/2025 9:47 PM EDT Narrative [facility] - 06/28/2025 10:15 PM EDT This CRP test is appropriate for assessment of infection, systemic inflammation and/or tissue injury. To assess cardiovascular disease risk order high sensitivity CRP (CRPH). Rg Coleman MD LAB BLOOD ORDERABLES Final Res ult Performing Organization Address [facility]/ZIP Co de Phone Number [facility] [address] [place] [address] * (ABNORMAL) Troponin now and 120 min (06/28/2025 9:39 PM EDT) [facility] Troponin T, High Sensitivity, 0 Hour 24(H) <19 ng/L 06/28/2025 10:15 PM EDT [facility] Blood Venous blood specimen / Unknown Venipuncture / Unknown 06/28/2025 9:39 PM EDT 06/28/2025 9:47 PM EDT Rg Coleman MD LAB BLOOD ORDERABLES Final Res ult [facility] [address] [place] [address] * (ABNORMAL) CMP (06/28/2025 9:39 PM EDT) Pathologist [facility] Glucose, Plasma 122(H) 74 - 99 mg/dL 06/28/2025 10:15 PM EDT [facility] BUN, Plasma 23 8 - 23 mg/dL 06/28/2025 10:15 PM EDT [facility] Creatinine, Plasma 1.49(H) 0.70 - 1.20 mg/dL 06/28/2025 10:15 PM EDT [facility] BUN/Creatinine Ratio 15 06/28/2025 10:15 PM EDT [facility] Sodium, Plasma 131(L) 136 - 145 mmol/L 06/28/2025 10:15 PM EDT [facility] Potassium, Plasma 3.7 3.6 - 4.9 mmol/L 06/28/2025 10:15 PM EDT [facility] Chloride, Plasma 98 97 - 107 mmol/L 06/28/2025 10:15 PM EDT [facility] CO2, Plasma 20(L) 22 - 29 mmol/L 06/28/2025 10:15 PM EDT [facility] Anion Gap 13 6 - 16 mmol/L 06/28/2025 10:15 PM EDT [facility] Total Calcium, Plasma 8.1(L) 8.9 - 10.2 mg/dL 06/28/2025 10:15 PM EDT [facility] Total Protein 5.3(L) 6.3 - 7.9 g/dL 06/28/2025 10:15 PM EDT [facility] Albumin, Plasma 2.7(L) 3.5 - 5.2 g/dL 06/28/2025 10:15 PM EDT [facility] AST, Plasma 67(H) 10 - 50 U/L 06/28/2025 10:15 PM EDT [facility] ALT, Plasma 49 10 - 50 U/L 06/28/2025 10:15 PM EDT [facility] Alkaline Phosphatase, Plasma 157(H) 40 - 115 U/L 06/28/2025 10:15 PM EDT [facility] Total Bilirubin, Plasma 2.8(H) 0.2 - 1.1 mg/dL 06/28/2025 10:15 PM EDT [facility] eGFRcr 50.2 mL/min/1.7 3m*2 06/28/2025 10:15 PM EDT [facility] Comment:Reported eGFRcr in m L/min/1.73m2 is based the CKD-EPI 2020 equation that does not use a race coefficient. Blood Venous blood specimen / Unknown Venipuncture / Unknown 06/28/2025 9:39 PM EDT 06/28/2025 9:47 PM EDT Rg Coleman MD LAB BLOOD ORDERABLES Final Res ult Performing Organization Address [facility] Co de Phone Number [facility] [address] [place] [address] * Type and screen (06/28/2025 9:39 PM [...] TEST ORDERABLES Final Result Performing Organization Address [facility] de Phone Number BLOOD BANK [address] [place] [address] * (ABNORMAL) APTT (06/28/2025 9:39 PM EDT) aPTT 70(H) 25 - 35 sec 06/28/2025 10:05 PM EDT [facility] Blood Venous blood specimen / Unknown Venipuncture / Unknown 06/28/2025 9:39 PM EDT 06/28/2025 9:47 PM EDT Rg Coleman MD LAB BLOOD ORDERABLES Final Res ult Performing Organization Address [facility] Co de Phone Number [facility] [address] [place] [address] * (ABNORMAL) CBC w/diff (06/28/2025 9:39 PM EDT) WBC Count 23.92(H) 3.70 - 10.30 10*3/uL LAB HEMATOLOGY METHOD 06/29/2025 1:00 AM EDT [facility] RBC Count 3.78(L) 4.60 - 6.10 10*6/uL LAB HEMATOLOGY METHOD 06/29/2025 1:00 AM EDT [facility] HGB 12.3(L) 13.7 - 17.5 g/dL LAB HEMATOLOGY METHOD 06/29/2025 1:00 AM EDT [facility] HCT 34.7(L) 40.0 - 51.0 % LAB HEMATOLOGY METHOD 06/29/2025 1:00 AM EDT [facility] Platelet Count 128(L) 155 - 369 10*3/uL LAB HEMATOLOGY METHOD 06/29/2025 1:00 AM EDT [facility] MCV 92 79 - 98 fL LAB HEMATOLOGY METHOD 06/29/2025 1:00 AM EDT [facility] MCH 32.5(H) 26.0 - 32.0 pg LAB HEMATOLOGY METHOD 06/29/2025 1:00 AM EDT [facility] MCHC 35.4 30.7 - 35.5 g/dL LAB HEMATOLOGY METHOD 06/29/2025 1:00 AM EDT [facility] RDW 16.3(H) 11.5 - 14.5 % LAB HEMATOLOGY METHOD 06/29/2025 1:00 AM EDT [facility] MPV 12.2 8.8 - 12.5 fL LAB HEMATOLOGY METHOD 06/29/2025 1:00 AM EDT [facility] nRBC 0.0 <=0.0 per 100 WBCs LAB HEMATOLOGY METHOD 06/29/2025 1:00 AM EDT [facility] Differential Type Automated LAB HEMATOLOGY METHOD 06/29/2025 1:00 AM EDT [facility] Neutrophils % 59 % LAB HEMATOLOGY METHOD 06/29/2025 1:00 AM EDT [facility] Lymphocytes % 37 % LAB HEMATOLOGY METHOD 06/29/2025 1:00 AM EDT [facility] Monocytes % 3 % LAB HEMATOLOGY METHOD 06/29/2025 1:00 AM EDT [facility] Eosinophils % 0 % LAB HEMATOLOGY METHOD 06/29/2025 1:00 AM EDT [facility] Basophils % 0 % LAB HEMATOLOGY METHOD 06/29/2025 1:00 AM EDT [facility] Immature Granulocytes % 1 % LAB HEMATOLOGY METHOD 06/29/2025 1:00 AM EDT [facility] Neutrophils Absolute 13.97(H) 1.60 - 6.10 10*3/uL LAB HEMATOLOGY METHOD 06/29/2025 1:00 AM EDT [facility] Lymphocytes Absolute 8.87(H) 1.20 - 3.90 10*3/uL LAB HEMATOLOGY METHOD 06/29/2025 1:00 AM EDT [facility] Monocytes Absolute 0.73 0.30 - 0.90 10*3/uL LAB HEMATOLOGY METHOD 06/29/2025 1:00 AM EDT [facility] Eosinophils Absolute 0.07 0.00 - 0.50 10*3/uL LAB HEMATOLOGY METHOD 06/29/2025 1:00 AM EDT [facility] Basophils Absolute 0.06 0.00 - 0.10 10*3/uL LAB HEMATOLOGY METHOD 06/29/2025 1:00 AM EDT [facility] Immature Granulocytes Absolute 0.16(H) 0.00 - 0.06 10*3/uL LAB HEMATOLOGY METHOD 06/29/2025 1:00 AM EDT [facility] Blood Venous blood specimen / Unknown Venipuncture / Unknown 06/28/2025 9:39 PM EDT 06/28/2025 9:47 PM EDT Narrative [facility] - 06/29/2025 1:00 AM EDT Therapeutic decision making should be based on absolute values, rather than percentages. us Rg Coleman MD LAB BLOOD ORDERABLES Final Res ult [facility] [address] [place] [address] * (ABNORMAL) PT-INR (06/28/2025 9:39 PM EDT) Prothrombin Time 21.0(H) 12.0 - 14.3 sec 06/28/2025 10:04 PM EDT [facility] INR 1.8(H) 0.9 - 1.1 06/28/2025 10:04 PM EDT [facility] Blood Venous blood specimen / Unknown Venipuncture / Unknown 06/28/2025 9:39 PM EDT 06/28/2025 9:47 PM EDT Narrative [facility] - 06/28/2025 10:04 PM EDT OPTIMAL INR RANGES FOR PATIENT ON ORAL ANTICOAGULANT THERAPY Prevention of venous thromboembolism INR 2.0 to 3.0 In patients with heart disease: Atrial fibrillation INR 2.0 to 3.0 Valvular heart disease INR 2.0 to 3.0 Tissue heart valves INR 2.0 to 3.0 Mechanical prosthetic valves INR 2.5 to 3.5 Prevention of recurrent VT INR 2.5 to 3.5 us Rg Coleman MD LAB BLOOD ORDERABLES Final Res ult [facility] [address] [place] [address] * (ABNORMAL) POCT venous blood gas gem (06/28/2025 9:33 PM EDT) pH, Venous 7.50(H) 7.32 - 7.43 06/28/2025 9:35 PM EDT [facility] pCO2, Venous 28(L) 40 - 55 mm Hg 06/28/2025 9:35 PM EDT [facility] pO2, Venous 66(H) 25 - 40 mm Hg 06/28/2025 9:35 PM EDT [facility] SO2, Venous 96(H) 65 - 80 % 06/28/2025 9:35 PM EDT [facility] Base Excess/Deficit, Venous -0.3 -2 - 3 mmol/L 06/28/2025 9:35 PM EDT [facility] HCO3, Venous 21.8(L) 22 - 26 mmol/L 06/28/2025 9:35 PM EDT [facility] Hemoglobin, Venous 12.8(L) 13.7 - 17.5 g/dL 06/28/2025 9:35 PM EDT [facility] Hematocrit, Venous 38.0(L) 40.0 - 51.0 % 06/28/2025 9:35 PM EDT [facility] Sodium, Venous 129(L) 136 - 145 mmol/L 06/28/2025 9:35 PM EDT [facility] Potassium, Venous 3.6 3.6 - 4.9 mmol/L 06/28/2025 9:35 PM EDT [facility] Comment:Hemolyzed, result ma y be falsely increased. POCT Chloride, Venous 98 97 - 107 mmol/L 06/28/2025 9:35 PM EDT [facility] Glucose, Venous 114(H) 74 - 99 mg/dL 06/28/2025 9:35 PM EDT [facility] Ionized Calcium, Venous 4.2(L) 4.6 - 5.1 mg/dL 06/28/2025 9:35 PM EDT [facility] Lactate, Venous 2.5(H) 0.5 - 2.2 mmol/L 06/28/2025 9:35 PM EDT [facility] Body Temperature 37.0 Celsius 06/28/2025 9:35 PM EDT [facility] pH, Temp Corrected, Venous 7.50(H) 7.32 - 7.43 06/28/2025 9:35 PM EDT [facility] pCO2, Temp Corrected, Venous 28(L) 40 - 55 mm Hg 06/28/2025 9:35 PM EDT [facility] pO2, Temp Corrected, Venous 66(H) 25 - 40 mm Hg 06/28/2025 9:35 PM EDT [facility] Microbial Specialist ID SHIRA Herzog 06/28/2025 9:35 PM EDT [facility] Blood, Venous Whole blood specimen / Unknown 06/28/2025 9:33 PM EDT 06/28/2025 9:35 PM EDT us Generic Provider Poct LAB POINT OF CARE TEST DOCKED DEVICE UNSOLICITED RESULTS Final Result [facility] [address] [place] [address] * (ABNORMAL) POCT glucose meter (06/28/2025 9:22 [...] Comment 06/28/2025 9:23 PM EDT [facility] Microbial Specialist ID Abdi Major 06/28/2025 9:23 PM EDT [facility] Device ID [id number] 06/28/2025 9:23 PM EDT [facility] Specimen Type POC Capillary 06/28/2025 9:23 PM EDT [facility] Blood Capillary blood specimen / Unknown 06/28/2025 9:22 PM EDT 06/28/2025 9:23 PM EDT us Generic Provider Poct LAB POINT OF CARE TEST DOCKED DEVICE UNSOLICITED RESULTS Final Result Performing Organization Address City/State/[facility] Co de Phone Number [facility] [address] [place] [address] documented in this encounter Visit Diagnoses Diagnosis [...] RN) 0617 (New Bag - Provider: Marielena Munoz, RN)1400 (Due)1750 (Bolus - Provider: Lary Bloom CRNA, LUDMILA) cefepime (Maxipime) 2 g in sodium chloride 0.9% 100 mL IVPB (vial adapter required) (CANCELED) 2 g, Intravenous, Every 12 hours, First dose on Mon07/04/25 at 0845, Until Discontinued, Routine 0937 (New Bag - Provider: Ju Herrera, TIERA) enoxaparin (Lovenox) syringe 110 mg 110 mg, [...] Anderson MD) 0701 (Given - Provider: Claude Ash, TIERA) fluconazole (Diflucan) tablet 200 mg 200 mg, [...] procedure)2032 (MAR Unhold - Provider: Automatic Transfer Provider)2227 (Given - Provider: Claude Ash, TIERA) 0701 [...] Routine 0848 (Given - Provider: Jing Field, TIERA)2041 (Not Given - Provider: Marielena Munoz RN - Reason: Patient/family refused) 0953 (Given - Provider: Jing Field RN)1618 (MAR Hold - Provider: Automatic Transfer Provider - Reason: Patient in procedure)2032 (MAR Unhold - Provider: Automatic Transfer Provider)2229 (Not Given - Provider: Claude Ash, TIERA - Reason: Patient/family refused - Comment: already [...] 1800, Routine 1707 (Given - Provider: Bryan Og RN) sodium chloride 0.9 % flush 10 mL(Linked Group 1) 10 mL, Intravenous, Every 12 hours, First dose on Mon06/29/25 at 0520, Until Discontinued, Routine 0511 (Not Given - Provider: Marielena Munoz RN - Reason: Patient/family refused)1807 (Given - Provider: Jing Field RN) 0553 (Not Given - Provider: Marielena [...] 1713 (Given - Provider: Jing Field RN) 1618 ([facility] Hold - Provider: Automatic Transfer Provider - Reason: Patient in procedure)1800 (Dose Auto Held - Provider: Automatic Transfer Provider)2032 ([facility] Unhold - Provider: Automatic Transfer Provider) PRN Medication Order 07/02/2025 07/03/2025 07/04/2025 bisacodyl (Dulcolax) suppository 10 mg 10 mg, Rectal, Daily PRN, Starting on Mon06/30/25 at 0606, Until Mon07/04/25 at 1650, Routine, constipation 1618 ([facility] Hold - Provider: Automatic Transfer Provider - Reason: Patient in procedure)2032 ([facility] Unhold - Provider: Automatic Transfer Provider) iohexol (OMNIPaque) 300 MG/ML injection (CANCELED) As needed, Starting on Eunice 07/03/25 at 1758, Until Eunice 07/03/25 at 1844, Routine, Intraprocedure 1758 (Given - Provider: Dyllan Paul MD) methocarbamol (Robaxin) tablet 500 mg 500 mg, Oral, 4 times daily PRN, Starting on Mon06/29/25 at 0627, Until Mon07/04/25 at 1650, Routine, muscle spasms 1618 ([facility] Hold - Provider: Automatic Transfer Provider - Reason: Patient in procedure)2032 ([facility] Unhold - Provider: Automatic Transfer Provider) ondansetron (Zofran) injection 4 mg(Linked Group 2) 4 mg, Intravenous, Every 6 hours PRN, Starting on Mon06/30/25 at 1657, Until Mon07/04/25 at 1650, Routine, vomiting, nausea 1618 ([facility] Hold - Provider: Automatic Transfer Provider - Reason: Patient in procedure)2032 ([facility] Unhold - Provider: Automatic Transfer Provider) ondansetron (Zofran) injection 4 mg (COMPLETED) 4 mg, Intravenous, Once as needed, 1 dose, Starting on Eunice 07/03/25 at 1627, Until Eunice 07/03/25 at 1805, Routine, Holding - Preprocedure, nausea, vomiting 1805 (Given - Provider: Lary Bloom, COTTON PULLER, DNP) ondansetron ODT (Zofran-ODT) disintegrating tablet 4 mg(Linked Group 2) 4 mg, Oral, Every 6 hours PRN, Starting on Mon06/30/25 at 1657, Until Mon07/04/25 at 1650, Routine, nausea, vomiting 1618 ([facility] Hold - Provider: Automatic Transfer Provider - Reason: Patient in procedure)2032 ([facility] Unhold - Provider: Automatic Transfer Provider) oxyCODONE (Roxicodone) immediate release tablet 5 mg 5 mg, Oral, Every 6 hours PRN, Starting on Mon06/29/25 at 1605, Until Mon07/04/25 at 1650, Routine, moderate pain 2039 (Given - Provider: Marielena Munzo, RN) 161 ([facility] Hold - Provider: Automatic Transfer Provider - Reason: Patient in procedure)2032 ([facility] Unhold - Provider: Automatic Transfer Provider)2226 (Given - Provider: Claude Ash RN) sodium chloride 0.9 % flush 10 mL(Linked Group 1) 10 mL, Intravenous, As needed, Starting on Mon06/29/25 at 0517, Until Mon07/04/25 at 1650, Routine, line care 161 ([facility] Hold - Provider: Automatic Transfer Provider - Reason: Patient in procedure)2032 ([facility] Unhold - Provider: Automatic Transfer Provider) Linked [...] PRN, Starting on Mon06/30/25 at 1657, Until Tu07/01/25 at 1407, Routine, nausea, vomiting documented in [...] documented as of this encounter Care Teams Gender Studies Professor Relationship Specialty Start Date End Date Murray Prajapati MD [id number] [place] [address] PCP - General 03/06/23 Jaja Camara APRN [address] [facility] [address] [place] [address] Referring Physician Gastroenterology 03/06/23 Dyllan Paul MD [address] [place] [address] Surgeon Urology 04/29/25 documented as of this encounter
--- OUTSIDE RECORDS SUMMARY | 2025-07-03 17:25 | XMS_ITS | Encounter Summary ---
Author Organization [facility] Address [address] [id number] Care Team Providers Care Applied Biology Professor Name Role Phone Murray Prajapati MD Primary Care Provider [phone] Jaja Camara APRN Unavailable [phone] Dyllan Paul MD Unavailable [phone] Reason for Visit * Auth/Cert (Routine) Specialty Diagnoses / Procedures Referred By Silverio barone Referred To Contact Diagnoses Sepsis, localized, in operative wound (CMS/HCC) Lizzie Cadena MD [address] [place] [address] Phone: tel: fax: PAV A Inpatient [address] [place] [address] Referral ID Status Reason Start Date Expiration Date Visits Re quested Visits Authorized [id number] 1 1 Encounter Details Date Type Department Care Team (Late st Contact Info) Description 07/03/2025 5:25 PM EDT Anesthesia Event PAV A OPERATING ROOM [address] [place] [address] Anand Pedraza MD [address] [place] [address] Annel Doshi APRN, DNP [address] [place] [address] Anesthesia Record Procedure Summary Procedure [...] Y es; Surgical; Open Surg; Abdomen; Mid 06/12/25 192 by Idalia Leonardo Wound 06/13/25; 1200; Surg ical; Pretibial; Left 06/13/25 1200 by Karen Ortiz RN Wound 06/29/25; 1999; Yes; Other (incision); Abdomen; Left, Lower; incision from laparoscopy leaking fluid 06/29/251999 by Denae Lowe RN Peripheral IV Placement Date: 08/14; Placement Time: 2131; Orientation: Posterior, Left; Location: Hand; Removal Date: 07/04/25; Removal Time: 11406/28/252131 by Mike Tellez RN 07/04/25 114 by Ju Herrera RN Peripheral IV Placement Date: 08/14; Placement Time: 2143; Catheter Size: 18 G; Orientation: Right; Location: Antecubital; Technique: Anatomical landmarks; Removal Date: 07/04/25; Removal Time: 11406/28/252143 by Mike Tellez RN 07/04/25 1140 by Ju Herrera RN Male External Urinary Catheter 06/30/25; 08; 07/04/25; 1140 06/30/25 08 by Ju Herrera [...] No change to dentition. ; Placed by: ALEX; Removal Date: 07/03/25; Removal Time: 183807/03/251732 by Lary Bloom CRNA, DNP 07/03/251838 by Lary Bloom CRNA, DNP documented in [...] any time in the past 12 m [facility], were you homeless or living in a [facility] (including now)? No 06/16/2025 CAGE ASSESSMENT Answer [...] drink first t rafy in the morning (EYE-WELDING ROD COATER) to steady your nerves or to get rid of a hangover? 0 06/28/2025 CAGE Questionnaire Score 0 025 Utilities Answer Date Recorded In the past 12 months has th [employer], gas, oil, or water [employer] threatened to shut off services in your home? No 06/16/2025 PHQ-2A Answer Date Recorded Patient Health Questionnaire-2 Score 0 05/04/2023 Sex and Gender Information Value Date Recorded Sex Assigned at Not on file Legal Sex Male 8:25 PM EDT Gender Identity Not on file Sexual Orientation Not on file documented as of this encounter Miscellaneous Notes * Anesthesia Postprocedure Evaluation - Lary Bloom CRNA, DNP - 07/03/2025 6:56 PM EDT Patient: [...] and Staff Patient location during procedure: OR MANUFACTURING QUALITY MANAGER: Lary Bloom CRNA, DNP Performed: MANUFACTURING QUALITY MANAGER Patient Condition Indications for airway management: anesthesia [...] CYSTOSCOPY, WITH URETERAL STENT INSERTION (Right) Location: [facility] / [facility] OR Surgeons: Dyllan Paul MD HPI David T Smith is a 70 y.o. male with body [...] 750 mg, Oral, 4 times daily PRN zbkazgtrvvpc-qmyn-mmqqkvqc-folic acid (Centrum) chewable tablet 1 tablet, Daily [...] Abnormal Ventricular Rate 109 Atrial Rate 109 LA Interval 152 QRSD Interval 86 QT Interval 336 QTC Interval 452 P [place] -6 R [place] -1 T Wave [place] 5 Diagnosis Sinus tachycardia Diagnosis Poor R-wave [...] is no recent study available for direct qgcj-fx-vmen comparison. CTA chest/abd/pelvis: 06/28 1. No acute [...] 3 - emergent Plan was reviewed with: MANUFACTURING QUALITY MANAGER Anesthesia technique(s) discussed with the patient/family: general [...] Does not have CHF, dysrhythmias or past [place]. hypertension: Exercise tolerance is 2 flights of [...] Hospital Encounter P[facility] S Operating Room [address] [place] [place] [id number] Dyllan Paul MD [address] [place] [address] 08/14/2025 12:25 PM EDT - 08/14/2025 1:55 PM EDT Surgery P[facility] S Operating Room [address] [place] [address] Dyllan Paul MD [address] [place] [address] URETEROSCOPY, WITH LASER LITHOTRIPSY [[id number] (CPT )] 10/28/2025 8:00 AM EST Office Visit [facility] Medicine Specialties [address] [place] [address] Pavan Aldrich MD [address] [place] [phone] Scheduled Procedures Name Priority Associated Diagnoses Date/Ti me URETEROSCOPY, WITH LASER LITHOTRIPSY Ureteral stone 08/14/2025 12:25 PM EDT documented as of this encounter Procedures Procedure Name Priority Date/Time Associated Diagnosis Comments PB ANESTHESIA PLACEHOLDER Routine 07/03/2025 5:33 PM EDT LA AN ELECTIVE ENDOTRACHEAL AIRWAY Routine 07/03/2025 5:33 PM EDT documented in this encounter Results * LA AN ELECTIVE ENDOTRACHEAL AIRWAY, PB ANESTHESIA PLACEHOLDER (07/03/2025 5:33 PM EDT) Narrative Lary Bloom CRNA, DNP - 07/03/2025 5:33 PM EDT Lary Bloom CRNA, LUDMILA 07/03/2025 5:47 PM Airway Date/Time: 07/03/2025 5:33 PM Reason: elective Airway not difficult General Information and Staff Patient location during procedure: OR MANUFACTURING QUALITY MANAGER: Lary Bloom CRNA, DNP Performed: MANUFACTURING QUALITY MANAGER Patient Condition Indications for airway management: anesthesia [...] Additional Comments Atraumatic. No change to dentition. us Anand Pedraza MD ANESTHESIA ORDERABLES Final Re sult documented in this encounter Visit Diagnoses Not on filedocumented in this encounter Administered Medications Inactive Administered Medications - up to 3 most recent administrations Medication Order MAR Action Action Date Dose Rate Site albuterol 108 (90 Base) MCG/ACT inhaler Inhalation, As needed, Starting on Eunice 07/03/25 at 1830, Until Mon07/03/25 at 185, Routine, Anesthesia Intraprocedure Given 07/03/2025 6:30 PM [...] (Decadron) injection Intravenous, As needed, Starting on Mon07/03/25 at 1805, Until Mon07/03/25 at 1856, Routine, Anesthesia Intraprocedure Given 07/03/2025 6:05 PM EDT 4 m g fentaNYL (Sublimaze) injection Intravenous, As needed, Starting on Eunice 07/03/25 at 1731, Until Mon07/03/25 at 1856, Routine, Anesthesia Intraprocedure Given 07/03/2025 [...] injection Intravenous, As needed, Starting on Eunice 8/14/25 at 1732, Until Eunice 07/03/25 at 1856, [...] documented as of this encounter Care Teams Applied Biology Professor Relationship Specialty Start Date End Date Murray Prajapati MD [address] [facility] [address] [place] [address] PCP - General 03/06/23 Jaja Camara APRN [address] [facility] [address] [place] [address] Referring Physician Gastroenterology 03/06/23 Dyllan Paul MD [id number] [place] [address] Surgeon Urology 04/29/25 documented as of this encounter
--- OUTSIDE RECORDS SUMMARY | 2025-07-22 06:57 | XMS_ITS | Encounter Summary ---
Author Organization [facility] Address [address] [place] [address] Care Team Providers Care Bonding Machine Operator Name Role Phone Murray Prajapati MD Primary Care Provider [phone] Jaja Camara METAL DRILL PRESS OPERATOR Unavailable [phone] Dyllan Paul MD Unavailable [phone] Wendy Card INGREDIENT MIXER Unavailable Unavaila ble Reason for Referral * Imaging (Routine) - Closed Specialty Diagnoses / Procedures Referred By Silverio barone Referred To Contact Radiology Diagnoses Renal calculi Procedures CT Urogram Trice Herrera MD [address] [address] Phone: tel: fax: Referral ID Status Reason Start Date Expiration Date Visits Re quested Visits Authorized [id number] Closed 06/25/2025 12/25/2026 1 1 Reason for Visit * Imaging (Routine) - Closed Specialty Diagnoses / Procedures Referred By Silverio barone Referred To Contact Radiology Diagnoses Renal calculi Procedures CT Urogram Trice Herrera MD [address] [address] Phone: tel: fax: Referral ID Status Reason Start Date Expiration Date Visits Re quested Visits Authorized [id number] Closed 06/25/2025 12/25/2026 1 1 Encounter Details Date Type Department Care Team (Latest Contact Info) Description 07/22/2025 6:57 AM EDT - 07/22/2025 11:59 PM EDT Hospital Encounter [facility] A Radiology [address] [place] [address] Renal calculi Discharge Disposition: Home or Self Care Social [...] any time in the past 12 m [facility], were you homeless or living in a retirement (including now)? No 06/16/2025 CAGE ASSESSMENT Answer [...] drink first t rafy in the morning (EYE-SAFETY INVESTIGATOR) to steady your nerves or to get rid of a hangover? 0 06/28/2025 CAGE Questionnaire Score 0 025 Utilities Answer Date Recorded In the past 12 months has th [employer], gas, oil, or water [employer] threatened to shut off services in your [...] things Not at all 07/22/2025 8:37 AM Smith Whitaker Feeling down, depressed, or hopeless Not at all 12/2024 8:37 AM EDT Smith Rosa Patient Health Questionnaire-2 Score 0 12/2024 8:37 AM KELSIET Smith Rosa documented as of this encounter Medications at Time of Discharge acetaminophen (Tylenol) 500 MG tablet Take 1 tablet by mouth every 8 hours as needed for pain. 60 tablet 07/04/2025 atorvastatin (Lipitor) 10 MG tablet Take 1 tablet by mouth daily. enoxaparin (Lovenox) 120 MG/0.8ML solution prefilled syringe Inject 0.8 mL under the skin every 12 hours. 180 each 06/25/2025 furosemide (Lasix) 40 MG tablet Take 1 tablet by mouth 2 times a day. lactulose (Chronulac) 10 GM/15ML solution Take 15 mL by mouth daily. 473 mL 1 07/22/2025 methocarbamol (Robaxin) 750 MG tablet Take 1 tablet by mouth 4 times a day as needed for muscle spasms. 120 tablet 06/25/2025 miconazole (Micotin) 2 % powder Apply to affected areas 43 g 1 07/04/2025 multivitamin-iro f-tympouta-ekevh acid (Centrum) chewable tablet Chew 1 tablet [...] each day with dinner. 30 capsule 06/25/2025 Vitamin E 450 MG (1000 UT) capsule Take 1,000 Units by mouth 1 (one) time each day. documented as of this encounter Miscellaneous Notes * Fartun Noonan - 07/22/2025 7:19 AM EDT Images from the original note were not included. 1639 Caring for Yourself after Contrast Imaging If you had ORAL contrast: ? You can go back to your normal diet and activities as tolerated. ? Drink plenty of fluids, unless told otherwise. If you had IV contrast: ? You can go back to your normal diet and activities as tolerated. ? Drink plenty of fluids, unless told otherwise. ? Leave a bandage on the site for 30 minutes (where the IV was inserted or blood was drawn). If you had Intravesical (bladder) contrast: ? Return to normal diet and activity. What you need to know about delayed reaction to IV contrast What is IV Contrast? ? Contrast is a dye that is put into your body through an IV. ? It is used for imaging scans such as CT scans and MRIs. ? The contrast makes blood vessels, organs and other parts of your body show up better on the scan. What do I need to do after IV contrast? ? Drink lots of fluids. This will help flush the contrast out of your system. ? Drink 2-3 extra glasses or bottles of water within 4 hours of your scan. What is a contrast reaction? ? A contrast reaction is a bad side effect from the contrast dye. ? It is rare but it does happen. ? They can be mild - such as sneezing, itching, or hives. ? They can be severe - such as trouble breathing, throat swelling, and irregular heart beat. When do these reactions happen? ? They often happen right after the contrast is injected. ? Some happen hours after going home. Go to the nearest Emergency Department right away if you have any of these symptoms after you leavethe clinic or hospital. ? Sneezing ? Itching in your mouth, throat, eyes, ears, or skin ? Rash or hives ? Throwing up or stomach sickness ? High heart rate or ?racing? of your heart ? Feeling dizzy or woozy ? Feeling short of breath or like you can?t take a deep breath ? Feeling very anxious for no other reason [...] Encounter PAV S Operating Room [address] [place] [address] Dyllan Paul MD [address] [place] [address] 08/14/2025 12:25 PM EDT - 08/14/2025 1:55 PM EDT Surgery PAV S Operating Room [address] [place] [address] Dyllan Paul MD [address] [place] [address] URETEROSCOPY, WITH LASER LITHOTRIPSY [[id number] (CPT )] 10/28/2025 8:00 AM EST Office Visit [facility] Medicine Specialties [address] [place] [address] Pavan Aldrich MD [address] [place] [address] Scheduled Procedures Name Priority Associated Diagnoses Date/Ti me URETEROSCOPY, WITH LASER LITHOTRIPSY Ureteral stone 08/14/2025 12:25 PM EDT documented as of this encounter Goals Goal Patient Goal Type Associated Problems Recent Progress Patient-Stated? Author Autogenerat ed Goal Care Plan Autogenerated Problem No Ishmael Johnna Acuna documented as of this encounter Procedures Procedure Name Priority Date/Time Associated Diagnosis Comments CT UROGRAM Routine 07/22/2025 7:53 AM EDT Renal calculi documented in this encounter Results * CT [...] following split bolus administration of IV contrast, [id number], 150 mL. Reformatted images in the coronal [...] MD IMG CT PROCEDURES Final Resul t documented in this encounter Visit Diagnoses Diagnosis Renal calculi Calculus of kidney Ureteral stone- Primary Calculus of ureter Ureteral stone Calculus of ureter documented in this encounter Administered Medications Inactive Administered Medications - up to 3 most recent administrations Medication Order MAR Action Action Date Dose Rate Site iohexol (OMNIPaque) 300 MG/ML injection 150 mL 150 mL, Intravenous, Once in imaging, 1 dose, Starting on 07/22/25 at 0718, Until 07/22/25 at 0733, Routine, Imaging Protocol Orders Given 07/22/2025 7:33 AM EDT 150 mL documented in this encounter Additional Health Concerns Active Problems Noted Date Diagnosed Date Autogenerated Problem 07/22/2025 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 Assessment Noted Time PHQ-9 Depression Total Score: 0 04/29/20 12:43 PM EDT A fall risk assessment has been complete d for the patient 07/22/2025 8:37 AM EDT A Body Mass Index follow-up plan has been documented for the patient 07/04/2025 11:54 AM EDT documented as of this encounter Care Teams Bonding Machine Operator Relationship Specialty Start Date End Date Murray Prajapati MD [address] [facility] [address] [place] [address] PCP - General 03/06/23 Jaja Camara APRN [address] [facility] [address] [place] [address] Referring Physician Gastroenterology 03/06/23 Dyllan Paul MD [address] [facility] [address] [place] [address] Surgeon Urology 04/29/25 Wendy Card LPN VALUE-BASED TRANSFORMATION PROGRAM TCM Nurse 07/07/25 documented as of this encounter
--- OUTSIDE RECORDS SUMMARY | 2025-07-22 08:45 | XMS_ITS | Encounter Summary ---
Author Organization [facility] Address [address] [place] [address] Care Team Providers Care Solder Leveler Printed Circuit Boards Name Role Phone Murray Prajapati MD Primary Care Provider [phone] aJja Camara MARKETING PR INTERN Unavailable [phone] Dyllan Paul MD Unavailable [phone] Wendy Card STATUS CONTROLLER Unavailable Unavaila ble Reason for Visit * Reason Comments Follow-up Encounter Details Date Type Department Care Team (Late st Contact Info) Description 07/22/2025 8:45 AM EDT [facility] [address] 2[address] [place] [address] Dyllan Paul MD [address] [place] [address] Ureteral stone (Primary Dx) Social [...] any time in the past 12 m [facility], were you homeless or living in a intermediate (including now)? No 06/16/2025 CAGE ASSESSMENT Answer [...] drink first t rafy in the morning (EYE-CANDLE MOLDER) to steady your nerves or to get [...] 0 12/2024 8:37 AM EDT Smith Rosa documented as of this encounter Plan of Treatment Upcoming Encounters Date Type Department Care Team (Latest Contact Info) Description 08/14/2025 12:25 PM EDT Hospital Encounter [facility] Operating Room [address] [place] [address] Dyllan Paul MD [address] [address] 08/14/2025 12:25 PM EDT - 08/14/2025 1:55 PM EDT Surgery [facility] Operating Room [address] [place] [address] Dyllan Paul MD [address] [address] URETEROSCOPY, WITH LASER LITHOTRIPSY [[id number] (CPT )] 10/28/2025 8:00 AM EST Office [facility] [place] [facility] [address] 2[address] [place] [address] Pavan Aldrich MD [address] [place] [address] Scheduled Procedures Name Priority Associated [...] skin kelsi present. 07/23/2025 8:34 AM EDT [facility] Urine Urine specimen obtained by clean catch procedure / Unknown Non-blood Collection / Unknown 07/22/2025 10:26 AM EDT 07/22/2025 10:49 AM EDT us Dyllan Paul MD LAB MICROBIOLOGY - GENERAL OR DERABLES Final Result [facility] [address] [place] [address] documented in this encounter Visit Diagnoses Diagnosis [...] documented as of this encounter Care Teams Solder Leveler Printed Circuit Boards Relationship Specialty Start Date End Date Murray Prajapati MD [address] [place] [address] PCP - General 03/06/23 Jaja Camara APRN 1210 [facility] [address] [place] [address] Referring Physician Gastroenterology 03/06/23 Dyllan Paul MD [id number] [place] [address] Surgeon Urology 04/29/25 Wendy Card LPN VALUE-BASED TRANSFORMATION PROGRAM TCM Nurse 07/07/25 documented as of this encounter
[2025-07-25] VITALS (15 sets, daily range): BP systolic 93–125; BP diastolic 57–77; PULSE 74–101; RESP 16–24; TEMP 36.9–37.2; O2SAT 93–98; BMI 30.2
--- OUTSIDE RECORDS SUMMARY | 2025-07-25 16:28 | XMS_ITS | Encounter Summary ---
Author Organization [facility] Address [address] [id number] Care Team Providers Care Rate Clerk Name Role Phone Murray Prajapati MD Primary Care Provider [phone] Jaja Camara STAFF TOXICOLOGIST Unavailable [phone] Dyllan Paul MD Unavailable [phone] Encounter Details Date Type Department Care Team (Late st Contact Info) Description 06/28/2025 [facility] [address] 2[address] [place] [address] Eugene Ruggiero MD [address] [id number] Social History Tobacco Use Types Packs/Day Years [...] any time in the past 12 m [facility], were you homeless or living [...] drink first t rafy in the morning (EYE-GAS PIT WORKER) to steady your nerves or to get rid of a hangover? 0 06/28/2025 CAGE Questionnaire Score 0 025 Utilities Answer Date Recorded In the past 12 months has th e [facility], gas, oil, or water company threatened to [...] encounter Miscellaneous Notes * Telephone Encounter - Eugene Ruggiero MD - 06/28/2025 10:17 AM EDT Spoke with patient. He is s/p RALP with Dr. Paul on 06/12/25 c/b transection of a patent umbilical vein requiring transfusions and ex lap for repair. He subsequently recovered and his catheter was removed prior to discharge on 06/25/25. He states he has not had a BM in 2 days (since 06/26) and wanted to let us know. He is otherwise doing well, drinking plenty of water, voiding appropriately, and ambulating without difficulty. Continue to take Lactulose as prescribed. He has some docusate/senna at home that I recommended he try to assist with production of a bowel movement. He will let us know if he continues to have issues with this. He was also informed to return to ED if he develops fever/chills, N/V, severe pain, inability to void or significant clots in urine. documented in this encounter Plan of Treatment Upcoming Encounters Date Type Department Care Team (Latest Contact Info) Description 08/14/2025 12:25 PM EDT Hospital Encounter [facility] Operating Room [address] [place] [address] Dyllan Paul MD [address] [address] 08/14/2025 12:25 PM EDT - 08/14/2025 1:55 PM EDT Surgery [facility] Operating Room [address] [place] [address] Dyllan Paul MD [address] [facility] [address] [address] URETEROSCOPY, WITH LASER LITHOTRIPSY [[id number] (CPT )] 10/28/2025 8:00 AM EST [facility] [address] 2nd [place] [address] Pavan Aldrich MD [address] [facility] [address] [place] [address] Scheduled Procedures Name Priority Associated [...] documented as of this encounter Care Teams Rate Clerk Relationship Specialty Start Date End Date Murray Prajapati MD [address] [place] [address] PCP - General 03/06/23 Jaja Camara APRN 1210 [facility] [address] [place] [address] Referring Physician Gastroenterology 03/06/23 Dyllan Paul MD [address] [facility] [address] [place] [address] Surgeon Urology 04/29/25 documented as of this encounter
--- OUTSIDE RECORDS SUMMARY | 2025-07-25 16:28 | XMS_ITS | Encounter Summary ---
Author Organization [facility] Address [address] [place] [address] Care Team Providers Care Quarter Lining Smoother Name Role Phone Murray Prajapati MD Primary Care Provider [phone] Jaja Camara QUALITY ASSURANCE MONITOR CHASSIS Unavailable [phone] Dyllan Paul MD Unavailable [phone] Wendy Card ENDOCRINOLOGY PHYSICIAN Unavailable Unavaila ble Encounter Details Date Type Department Care Team (Latest Contact Info) Description 07/22/2025 Travel Social History Tobacco Use Types Packs/Day [...] money to buy more. Never true 06/16/20 Within the past 12 months, t he [...] any time in the past 12 m [facility], were you homeless or living in a senior living (including now)? No 06/16/2025 CAGE ASSESSMENT Answer [...] drink first t rafy in the morning (EYE-INSPECTOR PENETRANT) to steady your nerves or to get rid of a hangover? 0 06/28/2025 CAGE Questionnaire Score 0 025 Utilities Answer Date Recorded In the past 12 months has th e [employer], gas, oil, or water company threatened to [...] Encounter [facility] Operating Room [address] [place] [address] Dyllan Paul MD [address] [facility] [address] [place] [address] 08/14/2025 12:25 PM EDT - 08/14/2025 1:55 PM EDT Surgery [facility] Operating Room [address] [place] [address] Dyllan Paul MD [address] [facility] [address] [place] [address] URETEROSCOPY, WITH LASER LITHOTRIPSY [[id number] (CPT )] 10/28/2025 8:00 AM EST Office Visit [place] [facility] [address], 2[address] [place] [address] Pavan Aldrich MD [address] [facility] [address] [place] [address] Scheduled Procedures Name Priority Associated Diagnoses Date/Ti me URETEROSCOPY, WITH LASER LITHOTRIPSY Ureteral stone 08/14/2025 12:25 PM EDT documented as of this encounter Goals Goal Patient Goal Type Associated Problems Recent Progress Patient-Stated? Author Autogenerat ed Goal Care Plan Autogenerated Problem No Johnna Quiñones documented as of this encounter Visit Diagnoses Not on filedocumented in this encounter Additional Health Concerns Active [...] documented as of this encounter Care Teams Quarter Lining Smoother Relationship Specialty Start Date End Date Murray Prajapati MD 1210 [facility] [address] [place] [address] PCP - General 03/06/23 Jaja Camara APRN 1210 [facility] [address] [place] [address] Referring Physician Gastroenterology 03/06/23 Dyllan Paul MD [address] [facility] [address] [place] [address] Surgeon Urology 04/29/25 Wendy Card LPN VALUE-BASED TRANSFORMATION PROGRAM TCM Nurse 07/07/25 documented as of this encounter
--- OUTSIDE RECORDS SUMMARY | 2025-07-25 16:28 | XMS_ITS | Encounter Summary ---
Author Organization [facility] Address [address] [place] [address] Care Team Providers Care Asphalt Smoother Name Role Phone Murray Prajapati MD Primary Care Provider [phone] Jaja Camara LABORER/GRADE CHECK Unavailable [phone] Dyllan Paul MD Unavailable [phone] Encounter Details Date Type Department Care Team (Latest Contact Info) Description 06/28/2025 Travel Social History Tobacco Use Types Packs/Day [...] any time in the past 12 m [facility], were you homeless or living in a assisted (including now)? No 06/16/2025 CAGE ASSESSMENT Answer [...] drink first t rafy in the morning (EYE-PNEUMATIC TESTER MECHANIC) to steady your nerves or to get [...] Date of Assessment Author No Risk Indicated 06/28/2025 9:46 PM EDT Mike Tellez, RN * Question Answer Date of Assessment Author 1. Wish to be (Past 1 Month) No 025 9:46 PM EDT Mike Tellez, RN 2. Non-Specific Active Suici tyra Thoughts (Past 1 Month) No 06/28/2025 9:46 PM EDT Mike Tellez, RN 6. Suicidal Behavior (Lifetime) No 9:46 PM EDT Mike Tellez, RN documented as of this encounter Plan of Treatment Upcoming Encounters Date Type Department Care Team (Latest Contact Info) Description 08/14/2025 12:25 PM EDT Hospital Encounter [facility] S Operating Room [address] [place] [address] Dyllan Paul MD [address] [address] 08/14/2025 12:25 PM EDT - 08/14/2025 1:55 PM EDT Surgery [facility] Operating Room [address] [place] [address] Dyllan Paul MD [address] [address] URETEROSCOPY, WITH LASER LITHOTRIPSY [[id number] (CPT )] 10/28/2025 8:00 AM EST Office [facility] [place] [facility] [address], 2nd [place] [address] Pavan Aldrich MD [address] [facility] [address] [place] [address] Scheduled Procedures Name Priority Associated Diagnoses Date/Ti [...] documented as of this encounter Care Teams Asphalt Smoother Relationship Specialty Start Date End Date Murray Prajapati MD 1210 [facility] [address] [place] [address] PCP - General 03/06/23 Jaja Camara APRN [address] [place] [address] Referring Physician Gastroenterology 03/06/23 Dyllan Paul MD [address] [place] [address] Surgeon Urology 04/29/25 documented as of this encounter
--- OUTSIDE RECORDS SUMMARY | 2025-07-25 16:29 | XMS_ITS | Encounter Summary ---
Author Organization [facility] Address [address] [place] [address] Care Team Providers Care Manager Sound Name Role Phone Murray Prajapati MD Primary Care Provider Jaja Camara MANAGER OF WAREHOUSE Unavailable [phone] Dyllan Paul MD Unavailable [phone] Encounter Details Date Type Department Care Team (Latest Contact Info) Description 06/29/2025 Travel Social History Tobacco Use Types Packs/Day [...] any time in the past [address] [facility], were you homeless or living in a senior care (including now)? No 06/16/2025 CAGE ASSESSMENT Answer [...] drink first t rafy in the morning (EYE-KIDNEY PULLER) to steady your nerves or to get [...] Date of Assessment Author No Risk Indicated 06/29/2025 8:00 PM EDT Denae Lowe RN * Question Answer Date of Assessment Author 1. Wish to be (Past 1 Month) No 025 8:00 PM EDT Denae Lowe, RN 2. Non-Specific Active Suici tyra Thoughts (Past 1 Month) No 06/29/2025 8:00 PM EDT Denae Lowe RN 6. Suicidal Behavior (Lifetime) No 8:00 PM EDT Denae Lowe, TIERA documented as of this encounter Plan of Treatment Upcoming Encounters Date Type Department Care Team (Latest Contact Info) Description 08/14/2025 12:25 PM EDT Hospital Encounter [facility] S Operating Room [address] [place] [address] Dyllan Paul MD [address] [facility] [address] [place] [address] 08/14/2025 12:25 PM EDT - 08/14/2025 1:55 PM EDT Surgery [facility] S Operating Room [address] [place] [address] Dyllan Paul MD [address] [facility] [address] [place] [address] URETEROSCOPY, WITH LASER LITHOTRIPSY [[id number] (CPT )] 10/28/2025 8:00 AM EST Office Visit [place] [facility] [address] [place] [address] Pavan Aldrich MD [address] [facility] [address] [place] [address] Scheduled Procedures Name Priority Associated Diagnoses Date/Ti [...] as of this encounter Care Teams Manager Sound Relationship Specialty Start Date End Date Murray Prajapati MD 1210 [facility] [address] [place] [address] PCP - General 03/06/23 Jaja Camara APRN [address] [address] Referring Physician Gastroenterology 03/06/23 Dyllan Paul MD [id number] [place] [address] Surgeon Urology 04/29/25 documented as of this encounter
--- OUTSIDE RECORDS SUMMARY | 2025-07-25 16:29 | XMS_ITS | Encounter Summary ---
Author Organization Healthcare Address [address] [place] [address] Care Team Providers Care Gate Tender Name Role Phone Murray Prajapati MD Primary Care Provider [phone] Jaja Camara RN RESIDENTIAL Unavailable [phone] Dyllan Paul MD Unavailable [phone] Wendy Card COAT AGENT Unavailable Unavaila ble Encounter Details Date Type Department Care Team (Late st Contact Info) Description 07/09/2025 Telephone [facility] [address] [place] [address] Dyllan Paul MD [address] [place] [address] Social History Tobacco Use Types Packs/Day Years [...] any time in the past 12 m [facility], were you homeless or living in a correction (including now)? No 06/16/2025 CAGE ASSESSMENT Answer [...] drink first t rafy in the morning (EYE-TOWER ATTENDANT) to steady your nerves or to get rid of a hangover? 0 06/28/2025 CAGE Questionnaire Score 0 025 Utilities Answer Date Recorded In the past 12 months has th e [employer], gas, oil, or water [employer] threatened to shut off services in your home? No 06/16/2025 PHQ-2A Answer Date Recorded Patient Health Questionnaire-2 Score 0 05/04/2023 Sex and Gender Information Value Date Recorded Sex Assigned at Not on file Legal Sex Male 8:25 PM EDT Gender Identity Not on file Sexual Orientation Not on file documented as of this encounter Miscellaneous Notes * Telephone Encounter - Estee Crowley - 07/09/2025 9:09 AM EDT RN called and spoke with patient's . Patient's stated patient started to experience mild vadim colored urine yesterday. No other symptoms were noted. RN stated this can be normal and to keep an eye on the urine color. If urine becomes deep red, tomato color or large clots are being passed or patient is unable to urinate along with pain patient should seek eval at ER. RN stated to make sure patient is drinking plenty of water throughout the day and to watch urine color and call back withany other concern. Patient's verbally understood and had no further questions at this time. * Telephone Encounter - Johnna Shields - 07/09/2025 8:59 AM EDT Patient Phone Message Reason for Call: Patient had a stent put in last week from kidney stones. Patient has been having a vadim colored urine. says he isnt sure if there is a discharge because he is wearing depends. She is wanting to know if this normal. Stent was on 07/03 Best contact number and optimal time of day to reach caller: [phone] Note: Please do not reply to this message. Follow-up communication and further actions as a result of this message need to be communicated with the patient directly, if the patient is not active onMyChart. If the patient is active on MyChart, they will receive notification of the communication/outcome via [employer]. documented in this encounter Plan of Treatment Upcoming Encounters Date Type Department Care Team (Latest Contact Info) Description 08/14/2025 12:25 PM EDT Hospital Encounter [facility] Operating Room [address] [place] [address] Dyllan Paul MD [address] [facility] [address] [place] [address] 08/14/2025 12:25 PM EDT - 08/14/2025 1:55 PM EDT Surgery [facility] Operating Room [address] [place] [address] Dyllan Paul MD [address] [address] URETEROSCOPY, WITH LASER LITHOTRIPSY [[id number] (CPT )] 10/28/2025 8:00 AM EST Office Visit [place] [facility] [address] [place] [address] Pavan Aldrich MD [address] [facility] [address] [place] [address] Scheduled Procedures Name Priority Associated [...] documented as of this encounter Care Teams Gate Tender Relationship Specialty Start Date End Date Murray Prajapati MD [facility] [address] [place] [address] PCP - General 03/06/23 Jaja Camara APRN [address] [place] [place] [id number] Referring Physician Gastroenterology 03/06/23 Dyllan Paul MD [address] [facility] [address] [place] [address] Surgeon Urology 04/29/25 Wendy Card LPN VALUE-BASED TRANSFORMATION PROGRAM TCM Nurse 07/07/25 documented as of this encounter
--- OUTSIDE RECORDS SUMMARY | 2025-07-25 16:29 | XMS_ITS | Encounter Summary ---
Author Organization [facility] Address [address] [place] [address] Care Team Providers Care Slubber Operator Name Role Phone Murray Prajapati MD Primary Care Provider [phone] Jaja Camara SUPERVISOR SCRAP PREPARATION Unavailable [phone] Dyllan Paul MD Unavailable [phone] Marlin Martinez RN Unavailable Unavailable Reason for Visit * Reason Comments Link Encounter Details Date Type Department Care Team (Late st Contact Info) Description 06/30/2025 Patient Outreach [facility] [address] [place] [address] Marlin Martinez, RN [facility] Link Social History Tobacco Use Types Packs/Day Years [...] any time in the past 12 m [facility], were you homeless or living [...] drink first t rafy in the morning (EYE-COM WRITER) to steady your nerves or to get [...] Date of Assessment Author No Risk Indicated 06/30/2025 8:00 AM EDT Ju Casiano RN * Question Answer Date of Assessment Author 1. Wish to be (Past 1 Month) No 06/30/2025 8:00 AM EDT Ju Herrera RN 2. Non-Specific Active Suici tyra Thoughts (Past 1 Month) No 06/30/2025 8:00 AM EDT Anayeli Herrera RN 6. Suicidal Behavior (Lifetime) No 8:00 AM EDT Ju Herrera RN documented as of this encounter Miscellaneous Notes * Progress Notes - Marlin Martinez RN - 06/30/2025 7:59 AM EDT Patient identified for LINK program. Following chart review, patient determined to be ineligible based on program criteria. documented in this encounter Plan of Treatment Upcoming Encounters Date Type Department Care Team (Latest Contact Info) Description 08/14/2025 12:25 PM EDT Hospital Encounter [facility] Operating Room [address] [place] [address] Dyllan Paul MD [address] [address] 08/14/2025 12:25 PM EDT - 08/14/2025 1:55 PM EDT Surgery [facility] Operating Room [address] [place] [address] Dyllan Paul MD [address] [address] URETEROSCOPY, WITH LASER LITHOTRIPSY [[id number] (CPT )] 10/28/2025 8:00 AM EST Office Visit [place] [facility] [address] [place] [address] Pavan Aldrich MD [address] [place] [address] Scheduled Procedures Name Priority Associated [...] documented as of this encounter Care Teams Slubber Operator Relationship Specialty Start Date End Date Murray Prajapati MD [address] [place] [address] PCP - General 03/06/23 Jaja Camara, SUPERVISOR SCRAP PREPARATION 1210 [facility] [address] [id number] Referring Physician Gastroenterology 03/06/23 Dyllan Paul MD [address] [facility] [address] [place] [address] Surgeon Urology 04/29/25 Marlin Martinez, RN [facility]OSPITAL [facility] Registered Nurse 06/30/25 06/30/25 documented as of this encounter
--- OUTSIDE RECORDS SUMMARY | 2025-07-25 16:29 | XMS_ITS | Encounter Summary ---
Author Organization [facility] Address [address] [place] [address] Care Team Providers Care Street Commissioner Name Role Phone Murray Prajapati MD Primary Care Provider [phone] Jaja Camara SALES TEAM LEADER Unavailable [phone] Dyllan Paul MD Unavailable [phone] Encounter Details Date Type Department Care Team (Latest Contact Info) Description 07/03/2025 Travel Social History Tobacco Use Types Packs/Day [...] any time in the past 12 m [facility], were you homeless or living in [...] drink first t rafy in the morning (EYE-PRESSING MACHINE TENDER) to steady your nerves or to get [...] Encounter [facility] Operating Room [address] [place] [address] Dyllan Paul MD [address] [facility] [address] [place] [address] 08/14/2025 12:25 PM EDT - 08/14/2025 1:55 PM EDT Surgery [facility] Operating Room [address] [place] [address] Dyllan Paul MD [address] [address] URETEROSCOPY, WITH LASER LITHOTRIPSY [[id number] (CPT )] 10/28/2025 8:00 AM EST Office Visit [place] [facility] [address] [place] [address] Pavan Aldrich MD [address] [facility] [address] [place] [address] Scheduled Procedures Name Priority Associated [...] documented as of this encounter Care Teams Street Commissioner Relationship Specialty Start Date End Date Murray Prajapati MD [address] [place] [address] PCP - General 03/06/23 Jaja Camara APRN [address] [place] [id number] Referring Physician Gastroenterology 03/06/23 Dyllan Paul MD [address] [facility] [address] [place] [address] Surgeon Urology 04/29/25 documented as of this encounter
--- OUTSIDE RECORDS SUMMARY | 2025-07-25 16:29 | XMS_ITS | Encounter Summary ---
Author Organization [facility] Address [address] [place] [address] Care Team Providers Care Sports Reporter Name Role Phone Murray Prajapati MD Primary Care Provider [phone] Jaja Camara ACT TUTOR Unavailable [phone] Dyllan Paul MD Unavailable [phone] Wendy Card LPN Unavailable Unavaila ble Reason for Visit * Reason Comments TCM Encounter Details Date Type Department Care Team (Late st Contact Info) Description 07/07/2025 Patient Outreach POPULATION HE[facility] [address], [address] [place] [address] Wendy Card LPN VALUE-BASED TRANSFORMATION PROGRAM TCM Social History Tobacco Use Types Packs/Day Years [...] any time in the past 12 [facility], were you homeless or living in a residential (including now)? No 06/16/2025 CAGE ASSESSMENT Answer [...] drink first t rafy in the morning (EYE-PAYROLL ASSOCIATE) to steady your nerves or to get [...] encounter Miscellaneous Notes * Progress Notes - Wendy Card LPN - 07/07/2025 11:00 AM EDT Admit Date: 06/28/2025 Discharge Date: 07/04/2025 Hospital Service: Hospital Medicine Discharge Diagnosis: Sepsis, localized, in operative wound 07/07/2025 TCM call # 1 Patient Reached: Yes Outcome: Spoke with patient for TCM nurse call. Patient reports no fevers, has swelling in lower extremities, and wound has stopped leaking. Patient and are concerned about holding lasix until 07/14/25 related to bilateral lower extremities swelling. Action: Sent [employer] secure chat to provider for clarification on holding lasix. Notified patient of providers response regarding lasix. Medication changes: Stop: ibuprofen 400 MG tablet potassium chloride CR 10 MEQ ER tablet (Klor-Con) Pause: Furosemide 40 mg 2 times daily (0900 & 1500) Paused since 07/04/2025. Resumes on Mon07/14/2025. Start: Fluconazole 200 mg Oral Daily levoFLOXacin 750 mg Oral Daily metroNIDAZOLE 500 mg Oral Every 8 hours Miconazole Nitrate 2 % Apply to affected areas Naloxone HCl 4 mg Nasal As needed oxyCODONE HCl 5 mg Oral Every 6 hours PRN [facility] appointment: N/A Items to address at [facility]: Labs documented in this encounter Plan of Treatment Upcoming Encounters Date Type Department Care Team (Latest Contact Info) Description 08/14/2025 12:25 PM EDT Hospital Encounter [facility] Operating Room [address] [place] [address] Dyllan Paul MD [address] [place] [address] 08/14/2025 12:25 PM EDT - 08/14/2025 1:55 PM EDT Surgery [facility] Operating Room [address] [place] [address] Dyllan Paul MD [address] [facility] [address] [place] [address] URETEROSCOPY, WITH LASER LITHOTRIPSY [[id number] (CPT )] 10/28/2025 8:00 AM EST Office Visit [place] [facility] [address] [place] [address] Pavan Aldrich MD [address] [facility] [address] [place] [address] Scheduled Procedures Name Priority Associated [...] documented as of this encounter Care Teams Sports Reporter Relationship Specialty Start Date End Date Murray Prajapati MD [id number] [place] [address] PCP - General 03/06/23 Jaja Camara APRN [address] [facility] [address] [place] [address] Referring Physician Gastroenterology 03/06/23 Dyllan Paul MD [address] [address] Surgeon Urology 04/29/25 Wendy Card LPN VALUE-BASED TRANSFORMATION PROGRAM TCM Nurse 07/07/25 documented as of this encounter
--- OUTSIDE RECORDS SUMMARY | 2025-07-25 16:30 | XMS_ITS | Encounter Summary ---
Author Organization [facility] Address [address] [place] [address] Care Team Providers Care Other Sales Support Worker Name Role Phone Murray Prajapati MD Primary Care Provider [phone] Jaja Camara CLIENT APPLICATION SUPPORT ENGINEER Unavailable [phone] Dyllan Paul MD Unavailable [phone] Wendy Card TRAY PACKER Unavailable Unavaila ble Reason for Visit * Reason Onset Date Comments HCN Clinical Concern/Question 07/15/2025 Encounter Details Date Type Department Care Team (Late st Contact Info) Description 07/15/2025 Telephone [place] [facility] [address] [place] [address] Dyllan Paul MD [address] [place] [address] HCN Clinical Concern/Question Social History Tobacco Use Types Packs/Day Years [...] in the past 12 m [facility], were you homeless or living in a fpc (including now)? No 06/16/2025 CAGE ASSESSMENT Answer [...] drink first t rafy in the morning (EYE-RADIO HOST) to steady your nerves or to get [...] encounter Miscellaneous Notes * Telephone Encounter - Danni Griffiths RN - 07/16/2025 12:17 PM EDT Contacted Lubna Lowe, of patient regarding patient's symptoms. Patient had prostatectomy on 06/12/25. He is having oozing from his left incision. She states that patient was told to quit taking Lasix for 7 days. Patient became very swollen and the oozing from theincision site increased. Denies odor. Patient is now back to taking Lasix as of 07/09/25. She says that the drainage is starting to have some blood in it. has been placing incontinence pads on it. Due to volume of drainage, she has to change the pad every 3 hours. Denies fever, nausea, vomitingor back pain. Patient currently has pain in his testicles and at the base of his penis. His testicles have been swollen and are currently the size of a small grapefruit. The testicular pain is worse at night. Patient has been taking oxycodone the past 4 nights for testicular pain. He has one pill left. is concerned that this will create addiction and would like advice from a doctor. is going to try to send pictures via [employer] of incision site. Crystal RODRIGUEZ consulted. Advised to make appointment as soon as possible with liver specialist or PCP. If unable to get a soon appointment to go to Emergency Department to be evaluated. Advised to try rolling up a washcloth and place under scrotum to provide scrotal support. Not concerned with addiction at this time. verbalized understanding. * Telephone Encounter - Richie Krystina Tiffanie - 07/15/2025 8:55 AM EDT Clinical Concern/Question Reason for Call: Patient's (Lubna) is calling he had surgery on 06/12 and had his prostate removed., He is still having some problems with drainage out of the weep hole.. Today the drainage lookeda little bloody. She also states when she wraps it they pad gets really wet. He also states he has has pain in his stomach since the surgery. Please call Lubna back with info. Thank you Best contact number: Other: [phone] Optimal time of day to reach caller: ANYTIME Additional comments/information from caller: None Note: Please do not reply to this message. Follow-up communication and further actions as a result of this message need to be communicated with the patient directly, if the patient is not active onMyChart. If the patient is active on MyChart, they will receive notification of the communication/outcome via [employer]. documented in this encounter Plan of Treatment Upcoming Encounters Date Type Department Care Team (Latest Contact Info) Description 08/14/2025 12:25 PM EDT Hospital Encounter [facility] S Operating Room [address] [place] [address] Dyllan Paul MD [address] [address] 08/14/2025 12:25 PM EDT - 08/14/2025 1:55 PM EDT Surgery [facility] Operating Room [address] [place] [address] Dyllan Paul MD [address] [address] URETEROSCOPY, WITH LASER LITHOTRIPSY [[id number] (CPT )] 10/28/2025 8:00 AM EST Office Visit [place] [facility] [address] [place] [address] Pavan Aldrich MD [address] [place] [address] Scheduled Procedures Name Priority [...] documented as of this encounter Care Teams Other Sales Support Worker Relationship Specialty Start Date End Date Murray Prajapati MD [address]10 [facility] [address] [place] [address] PCP - General 03/06/23 Jaja Camara APRN 1210 [facility] [address] [place], [place] [address] Referring Physician Gastroenterology 03/06/23 Dyllan Paul MD [address] [place] [address] Surgeon Urology 04/29/25 Wendy Card LPN VALUE-BASED TRANSFORMATION PROGRAM TCM Nurse 07/07/25 documented as of this encounter
--- OUTSIDE RECORDS SUMMARY | 2025-07-25 16:30 | XMS_ITS ---
Author Organization [facility] Address [address] [place] [address] Care Team Providers Care Hair And Makeup Designer Name Role Phone Murray Prajapati MD Primary Care Provider [phone] Jaja Camara MANAGER MAC Unavailable [phone] Dyllan Paul MD Unavailable [phone] Wendy Card INTEGRITY ANALYST Unavailable Unavaila ble LINK Program Status:Closed (Closed) Start date:06/30/2025 Enrollment date:06/30/2025 End date:06/30/2025 Close reason:Not Eligible Overview TXP Continued Care and Services Coordination
--- OUTSIDE RECORDS SUMMARY | 2025-07-25 16:30 | XMS_ITS | Encounter Summary ---
Author Organization [facility] Address [address] [place] [address] Care Team Providers Care Shoe Sewing Machine Operator And Tender Name Role Phone Murray Prajapati MD Primary Care Provider [phone] Jaja Camara NEONATAL DOCTOR Unavailable [phone] Dyllan Paul MD Unavailable [phone] Wendy Card GOVERNMENT MINISTER Unavailable Unavaila ble Reason for Visit * Reason Onset Date Comments HCN Clinical Concern/Question 07/18/2025 Encounter Details Date Type Department Care Team (Late st Contact Info) Description 07/18/2025 Telephone [place] [facility] [address] [place] [address] Dyllan Paul MD [address] [place] [address] HCN Clinical Concern/Question Social History [...] any time in the past 12 m [facility], were you homeless or living in [...] drink first t rafy in the morning (EYE-PACKAGE SEALER MACHINE) to steady your nerves or to get [...] Smith Rosa documented as of this encounter Miscellaneous Notes * Telephone Encounter - Johnna Quiñones - 07/22/2025 11:53 AM EDT Spoke with patient, scheduled 08/14 surgery, went over surgery directions, patient Is aware of anesthesia preop screening call and arrival time call prior to surgery * Telephone Encounter - Adam Earl MD - 07/18/2025 7:29 PM EDT This sounds appropriate. Intermittent hematuria can be expected with stents; should just stay superhydrated. He should continue doing Kegals to improve his continence; this will come with time. Can try scrotal support for scrotal swelling/pain; if it worsens, can get checked out by PCP for scrotalultrasound. We can further discuss his issues on 07/22 appt. * Telephone Encounter - Danni Griffiths RN - 07/18/2025 8:51 AM EDT I contacted Eber Heredia Lowe by phone at [phone]. Patient has had some blood in his urine recently and had concerns. Patient currently has a stent. Patient educated that blood may be in urine intermittently when a stent is in place. Patient verbalized understanding to monitor for large clots of blood. Patient states that since his prostatectomy on 06/12/25, he has been incontinent. He is starting to feel the urge to void again. Patient states that the swelling of his scrotum has reduced a little since 07/16/25, but it is still very painful. He has not tried using a rolled up washcloth for support yet. Patient states that the drainage from his left abdominal incision is still free of odor. He denies fever, chills or abdominal pain. Patient plans to discuss scrotal swelling and his draining abdominal incision on 07/22/25, at his appointment with Dr. Paul. Patient has also sent a picture of his incision via [employer] on 07/16/25. It is located under the Media tab. Message sent to Urology Oncology team. * Telephone Encounter - Crystal Armenta - 07/18/2025 8:32 AM EDT Patient Phone Message Reason for Call: Pt is calling requesting a call back to discuss drainage/discharge pt has been having off and on since his prostate removal with Dr Paul. States it has been bloody at times. Please advise Best contact number and optimal time of day to reach caller: [phone] Note: Please do not reply to this message. Follow-up communication and further actions as a result of this message need to be communicated with the patient directly, if the patient is not active onMyChart. If the patient is active on MyChart, they will receive notification of the communication/outcome via [employer]. documented in this encounter Plan of Treatment Upcoming Encounters Date Type Department Care Team (Latest Contact Info) Description 08/14/2025 12:25 PM EDT Hospital Encounter [facility] Operating Room [address] [place] [address] Dyllan Paul MD [address] [facility] [address] [place] [address] 08/14/2025 12:25 PM EDT - 08/14/2025 1:55 PM EDT Surgery [facility] Operating Room [address] [place] [address] Dyllan Paul MD [address] [place] [address] URETEROSCOPY, WITH LASER LITHOTRIPSY [[id number] (CPT )] 10/28/2025 8:00 AM EST Office Visit [place] [facility] [address] [place] [address] Pavan Aldrich MD [address] [facility] [address] [place] [address] Scheduled Procedures Name Priority Associated [...] documented as of this encounter Care Teams Shoe Sewing Machine Operator And Tender Relationship Specialty Start Date End Date Murray Prajapati MD [address] [place] [address] PCP - General 03/06/23 Jaja Camara APRN [address] [place] [address] [place] [address] Referring Physician Gastroenterology 03/06/23 Dyllan Paul MD [address] [facility] [address] [place] [address] Surgeon Urology 04/29/25 Wendy Card LPN VALUE-BASED TRANSFORMATION PROGRAM TCM Nurse 07/07/25 documented as of this encounter
--- OUTSIDE RECORDS SUMMARY | 2025-07-25 16:30 | XMS_ITS | Encounter Summary ---
Author Organization [facility] Address [address] [place] [address] Care Team Providers Care Maintenance Repairer Name Role Phone Murray Prajapati MD Primary Care Provider [phone] Jaja Camara DIE MAKER TRIM Unavailable [phone] Dyllan Paul MD Unavailable [phone] Reason for Visit * Reason Onset Date Comments HCN Clinical Concern/Question 05/20/2025 Encounter Details Date Type Department Care Team (Late st Contact Info) Description 05/20/2025 Telephone [place] [facility] [address] [place] [address] Dyllan Paul MD [address] [place] [address] HCN Clinical Concern/Question Social History [...] time in the past 12 m [facility], were you homeless or living in a senior living (including now)? No 06/16/2025 Utilities Answer Date Recorded In the past 12 months has th e [employer], gas, oil, or water company threatened to [...] Date of Assessment Author No Risk Indicated 06/20/2025 8:00 AM EDT oRsalio Santos, RN * Question Answer Date of Assessment Author 1. Wish to be (Past 1 Month) No 06/20/2025 8:00 AM EDT Samia Santos RN 2. Non-Specific Active Suici tyra Thoughts (Past 1 Month) No 06/20/2025 8:00 AM EDT Claudia Santos RN 6. Suicidal Behavior (Lifetime) No 8:00 AM EDT Samia Santos RN documented as of this encounter Miscellaneous Notes * Telephone Encounter - Krystina Quiroz - 05/20/2025 11:07 AM EDT Clinical Concern/Question Reason for Call: Patient is calling he has surgery on 06/12, He has to have some skin cancer removedoff his leg on Saturday 05/26 and he wanted to make sure that will not affect his upcoming surgery withour clinic on 06/12. Please call patient back with info. Thank you Best contact number: [phone] (mobile) Optimal time of day to reach caller: ANYTIME Additional comments/information from caller: None Note: Please do not reply to this message. Follow-up communication and further actions as a result of this message need to be communicated with the patient directly, if the patient is not active onMyChart. If the patient is active on MyChart, they will receive notification of the communication/outcome via [employer]. documented in this encounter Plan of Treatment Upcoming Encounters Date Type Department Care Team (Latest Contact Info) Description 08/14/2025 12:25 PM EDT Hospital Encounter [facility] Operating Room [address] [place] [address] Dyllan Paul MD [address] [address] 08/14/2025 12:25 PM EDT - 08/14/2025 1:55 PM EDT Surgery [facility] Operating Room [address] [place] [address] Dyllan Paul MD [address] [address] URETEROSCOPY, WITH LASER LITHOTRIPSY [[id number] (CPT )] 10/28/2025 8:00 AM EST Office Visit [place] [facility] [address] [place] [address] Pavan Aldrich MD [address] [place] [address] Scheduled Procedures Name Priority Associated Diagnoses Date/Ti me URETEROSCOPY, WITH LASER LITHOTRIPSY Ureteral stone 08/14/2025 12:25 PM EDT documented as of this encounter Visit Diagnoses Not on filedocumented in this encounter Additional Health Concerns 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 Respiratory Rule-Out 06/15/2025 06/15/2025 025 5:19 PM EDT Assessment Noted Time PHQ-9 Depression Total Score: 0 04/29/20 25 12:43 PM EDT A fall risk assessment has been complete d for the patient 04/29/2025 12:44 PM EDT A Body Mass Index follow-up plan has been documented for the patient 04/30/2025 3:18 PM EDT documented as of this encounter Care Teams Maintenance Repairer Relationship Specialty Start Date End Date Murray Prajapati MD [address]10 [facility] [address] [place] [address] PCP - General 03/06/23 Jaja Camara APRN 1210 [facility] [address] [place] [address] Referring Physician Gastroenterology 03/06/23 Dyllan Paul MD [address] [place] [address] Surgeon Urology 04/29/25 documented as of this encounter
--- OUTSIDE RECORDS SUMMARY | 2025-07-25 16:30 | XMS_ITS ---
Author Organization [facility] Address [address] [place] [address] Care Team Providers Care Hot Dog Vender Name Role Phone Murray Prajapati MD Primary Care Provider [phone] Jaja Camara SHIP YARD ELECTRICAL PERSON Unavailable [phone] Dyllan Paul MD Unavailable [phone] Wendy Card LPN Unavailable Unavaila ble Transitional Care Management Status:Active (Active) Start date:07/07/2025 Enrollment date:07/07/2025 Enrollment reason:Identified using hospital discharge data Overview This episode type is for outpatient care managers enrolling patients in the [facility] Transitional Care Management program. Case Team Name Relationship Phone Wendy Card LPN(Responsible Staff) [facility] Nu rse Continued Care and Services Coordination
--- OUTSIDE RECORDS SUMMARY | 2025-07-25 16:30 | XMS_ITS ---
Author Organization [facility] Address [address] [place] [address] Care Team Providers Care Asphalt Paving Superintendent Name Role Phone Murray Prajapati MD Primary Care Provider [phone] Jaja Camara CATERING SOUS CHEF Unavailable [phone] Dyllan Paul MD Unavailable [phone] Wendy Card AUTOMATION CONTROLS ENGINEER Unavailable Unavaila ble Active Problems Problem Noted Date Diagnosed Date Ureteral stone 07/22/2025 Sepsis, localized, in operative wound 06/29/2025 UTI (urinary tract infection) 06/29/2025 Right ureteral stone 06/28/2025 Acute pulmonary embolism 06/22/2025 Hypernatremia 06/18/2025 Assessment & Plan (06/18/2025 9:56 AM EDT): 4.2L def. 50mL free water added to TF 5 metolazone with home lasix today. Altered mental state 06/18/2025 Assessment & Plan (06/18/2025 9:56 AM EDT): More alert today than yesterday. Is pleasantly confused, but able to answer some orientation questions correctly. Encouraged up to chair and blinds open during the days. Hypotension 06/13/2025 Assessment & Plan (06/17/2025 8:57 AM EDT): -Monitor arterial pressure -Norepi for MAP>65 -Transfuse as needed. Assessment & Plan (06/16/2025 10:57 AM EDT): -Monitor arterial pressure -Norepi for MAP>65 -Transfuse as needed. Assessment & Plan (06/15/2025 9:12 AM EDT): -Monitor arterial pressure -Norepi for MAP>65 -Transfuse as needed. Assessment & Plan (06/14/2025 9:59 AM EDT): -Monitor arterial pressure -Norepi for MAP>65 -Transfuse as needed. Assessment & Plan (06/13/2025 12:03 PM EDT): -Monitor arterial pressure -Norepi for MAP>65 -Transfuse as needed. Prostate CA 06/12/2025 Assessment & Plan (06/18/2025 9:56 AM EDT): 06/12: robot-assisted radical prostatectomy, complicated by severed umbilical vein, 1.3L blood loss Management per primary Assessment & Plan (06/17/2025 8:57 AM EDT): 06/12: robot-assisted radical prostatectomy, complicated by severed umbilical vein, 1.3L blood loss Management per primary Assessment & Plan (06/16/2025 10:57 AM EDT): 06/12: robot-assisted radical prostatectomy, complicated by severed umbilical vein, 1.3L blood loss Management per primary Assessment & Plan (06/15/2025 9:12 AM EDT): 06/12: robot-assisted radical prostatectomy, complicated by severed umbilical vein, 1.3L blood loss Management per primary Assessment & Plan (06/14/2025 9:59 AM EDT): 06/12: robot-assisted radical prostatectomy, complicated by severed umbilical vein, 1.3L blood loss Management per primary Assessment & Plan (06/13/2025 10:49 AM EDT): 06/12: robot-assisted radical prostatectomy, complicated by severed umbilical vein, 1.3L blood loss Management per primary Assessment & Plan (06/12/2025 10:29 PM EDT): 06/12: robot-assisted radical prostatectomy, complicated by severed umbilical vein, 1.3L blood loss Management per primary Anemia 06/12/2025 Overview (06/18/2025): Lab Results Component Value Date HGB 12.0 (L) 06/17/2025 , Lab Results Component Value Date HCT 35.2 (L) 06/17/2025 Stable Will continue to monitor Transfuse as appropriate for Hgb>8 Iron, Folate, B12 as appropriate Assessment & Plan (06/18/2025 9:56 AM EDT): Lab Results Component Value Date HGB 12.5 (L) 06/12/2025 , Lab Results Component Value Date HCT 36.2 (L) 06/12/2025 Stable Will continue to monitor Transfuse as appropriate for Hgb>8 Iron, Folate, B12 as appropriate Assessment & Plan (06/17/2025 8:57 AM EDT): Lab Results Component Value Date HGB 12.5 (L) 06/12/2025 , Lab Results Component Value Date HCT 36.2 (L) 06/12/2025 Stable Will continue to monitor Transfuse as appropriate for Hgb>8 Iron, Folate, B12 as appropriate Assessment & Plan (06/16/2025 10:57 AM EDT): Lab Results Component Value Date HGB 12.5 (L) 06/12/2025 , Lab Results Component Value Date HCT 36.2 (L) 06/12/2025 Stable Will continue to monitor Transfuse as appropriate for Hgb>8 Iron, Folate, B12 as appropriate Assessment & Plan (06/15/2025 9:12 AM EDT): Lab Results Component Value Date HGB 12.5 (L) 06/12/2025 , Lab Results Component Value Date HCT 36.2 (L) 06/12/2025 Stable Will continue to monitor Transfuse as appropriate for Hgb>8 Iron, Folate, B12 as appropriate Assessment & Plan (06/14/2025 9:59 AM EDT): Lab Results Component Value Date HGB 12.5 (L) 06/12/2025 , Lab Results Component Value Date HCT 36.2 (L) 06/12/2025 Stable Will continue to monitor Transfuse as appropriate for Hgb>8 Iron, Folate, B12 as appropriate Assessment & Plan (06/13/2025 10:49 AM EDT): Lab Results Component Value Date HGB 12.5 (L) 06/12/2025 , Lab Results Component Value Date HCT 36.2 (L) 06/12/2025 Stable Will continue to monitor Transfuse as appropriate for Hgb>8 Iron, Folate, B12 as appropriate Assessment & Plan (06/12/2025 10:29 PM EDT): Lab Results Component Value Date HGB 12.5 (L) 06/12/2025 , Lab Results Component Value Date HCT 36.2 (L) 06/12/2025 Stable Will continue to monitor Transfuse as appropriate for Hgb>8 Iron, Folate, B12 as appropriate Hyperlipidemia 06/12/2025 Assessment & Plan (06/18/2025 9:56 AM EDT): Restart home statin Assessment & Plan (06/17/2025 8:57 AM EDT): Hold statin until appropriate to restart Assessment & Plan (06/16/2025 10:57 AM EDT): Hold statin until appropriate to restart Assessment & Plan (06/15/2025 9:12 AM EDT): Hold statin until appropriate to restart Assessment & Plan (06/14/2025 9:59 AM EDT): Hold statin until appropriate to restart Assessment & Plan (06/13/2025 10:49 AM EDT): Hold statin until appropriate to restart Assessment & Plan (06/12/2025 10:29 PM EDT): Hold statin until appropriate to restart Leukocytosis 06/12/2025 Assessment & Plan (06/18/2025 9:56 AM EDT): Multifactorial etiology in setting of recent surgery Pancultures MURF and BC NGTD Procal 1.99 Continue empiric Vanc/Zosyn will plan to treat for a total of 5 days (stop date Continue to trend Assessment & Plan (06/17/2025 10:54 AM EDT): WBC Count (10*3/uL) Date/Time Value 06/12/20252126 11.67 (H) Tmax 100*F Multifactorial etiology in setting of recent surgery Pancultures MURF and BC NGTD Procal 1.99 Continue empiric Vanc/Zosyn will plan to treat for a total of 5 days. Continue to follow Assessment & Plan (06/16/2025 10:57 AM EDT): WBC Count (10*3/uL) Date/Time Value 06/12/20252126 11.67 (H) Tmax 100*F Multifactorial etiology in setting of recent surgery Pancultures pending; Procal 1.99 Start empiric Vanc/Zosyn Continue to follow Assessment & Plan (06/15/2025 9:12 AM EDT): WBC Count (10*3/uL) Date/Time Value 06/12/20252126 11.67 (H) Tmax 100*F Multifactorial etiology in setting of recent surgery Pancultures pending; Procal 1.99 Start empiric Vanc/Zosyn Continue to follow Assessment & Plan (06/14/2025 9:59 AM EDT): WBC Count (10*3/uL) Date/Time Value 06/12/20252126 11.67 (H) Tmax 100*F Multifactorial etiology in setting of recent surgery Pancultures pending; Procal 1.99 Start empiric Vanc/Zosyn Continue to follow Assessment & Plan (06/13/2025 10:49 AM EDT): WBC Count (10*3/uL) Date/Time Value 06/12/20252126 11.67 (H) Multifactorial etiology in setting of recent surgery Trend for now, may require further evaluation in near future Assessment & Plan (06/12/2025 10:29 PM EDT): WBC Count (10*3/uL) Date/Time Value 06/12/20252126 11.67 (H) Multifactorial etiology in setting of recent surgery Trend for now, may require further evaluation in near future Cirrhosis of liver 06/12/2025 Assessment & Plan (06/18/2025 9:56 AM EDT): MELD 3.0: 26 at 06/14/2025 12:41 AM [...] years Sex: Male at 06/14/2025 12:41 AM Assessment & Plan (06/17/2025 8:57 AM EDT): In setting of AUD MELD score MELD 3.0: 16 at 03/28/2025 6:34 AM MELD-Na: 16 at 03/28/2025 6:34 AM Monitor liver function with daily labs Assessment & Plan (06/16/2025 10:57 AM EDT): In setting of AUD MELD score MELD 3.0: 16 at 03/28/2025 6:34 AM MELD-Na: 16 at 03/28/2025 6:34 AM Monitor liver function with daily labs Assessment & Plan (06/15/2025 9:12 AM EDT): In setting of AUD MELD score MELD 3.0: 16 at 03/28/2025 6:34 AM MELD-Na: 16 at 03/28/2025 6:34 AM Monitor liver function with daily labs Assessment & Plan (06/14/2025 9:59 AM EDT): In setting of AUD MELD score MELD 3.0: 16 at 03/28/2025 6:34 AM MELD-Na: 16 at 03/28/2025 6:34 AM Monitor liver function with daily labs Assessment & Plan (06/13/2025 10:49 AM EDT): In setting of AUD MELD score MELD 3.0: 16 at 03/28/2025 6:34 AM MELD-Na: 16 at 03/28/2025 6:34 AM Monitor liver function with daily labs Assessment & Plan (06/12/2025 10:29 PM EDT): In setting of AUD MELD score MELD 3.0: 16 at 03/28/2025 6:34 AM MELD-Na: 16 at 03/28/2025 6:34 AM Monitor liver function with daily labs Hyperbilirubinemia 06/12/2025 Overview (06/12/2025): T bili 3.7 In setting of AUD related cirrhosis Monitor with daily labs Assessment & Plan (06/18/2025 9:56 AM EDT): T bili 3.7 In setting of AUD related cirrhosis Monitor with daily labs Assessment & Plan (06/17/2025 8:57 AM EDT): T bili 3.7 In setting of AUD related cirrhosis Monitor with daily labs Assessment & Plan (06/16/2025 10:57 AM EDT): T bili 3.7 In setting of AUD related cirrhosis Monitor with daily labs Assessment & Plan (06/15/2025 9:12 AM EDT): T bili 3.7 In setting of AUD related cirrhosis Monitor with daily labs Assessment & Plan (06/14/2025 9:59 AM EDT): T bili 3.7 In setting of AUD related cirrhosis Monitor with daily labs Assessment & Plan (06/13/2025 10:49 AM EDT): T bili 3.7 In setting of AUD related cirrhosis Monitor with daily labs Assessment & Plan (06/12/2025 10:29 PM EDT): T bili 3.7 In setting of AUD related cirrhosis Monitor with daily labs Esophageal varices 06/12/2025 Overview (06/12/2025): EGD 08/13: gr1 ev; moderate PHG no focal liver lesion Takes Coreg daily Restart home medication when appropriate Assessment & Plan (06/18/2025 9:56 AM EDT): EGD 08/13: gr1 ev; moderate PHG no focal liver lesion Takes Coreg daily Restart home medication when appropriate Assessment & Plan (06/17/2025 8:57 AM EDT): EGD 08/13: gr1 ev; moderate PHG no focal liver lesion Takes Coreg daily Restart home medication when appropriate Assessment & Plan (06/16/2025 10:57 AM EDT): EGD 08/13: gr1 ev; moderate PHG no focal liver lesion Takes Coreg daily Restart home medication when appropriate Assessment & Plan (06/15/2025 9:12 AM EDT): EGD 08/13: gr1 ev; moderate PHG no focal liver lesion Takes Coreg daily Restart home medication when appropriate Assessment & Plan (06/14/2025 9:59 AM EDT): EGD 08/13: gr1 ev; moderate PHG no focal liver lesion Takes Coreg daily Restart home medication when appropriate Assessment & Plan (06/13/2025 10:49 AM EDT): EGD 08/13: gr1 ev; moderate PHG no focal liver lesion Takes Coreg daily Restart home medication when appropriate Assessment & Plan (06/12/2025 10:29 PM EDT): EGD 08/13: gr1 ev; moderate PHG no focal liver lesion Takes Coreg daily Restart home medication when appropriate Renal calculi 06/12/2025 Overview (06/12/2025): Resume home medications when appropriate Monitor kidney function with daily labs Assessment & Plan (06/18/2025 9:56 AM EDT): Resume home medications when appropriate Monitor kidney function with daily labs Assessment & Plan (06/17/2025 8:57 AM EDT): Resume home medications when appropriate Monitor kidney function with daily labs Assessment & Plan (06/16/2025 10:57 AM EDT): Resume home medications when appropriate Monitor kidney function with daily labs Assessment & Plan (06/15/2025 9:12 AM EDT): Resume home medications when appropriate Monitor kidney function with daily labs Assessment & Plan (06/14/2025 9:59 AM EDT): Resume home medications when appropriate Monitor kidney function with daily labs Assessment & Plan (06/13/2025 10:49 AM EDT): Resume home medications when appropriate Monitor kidney function with daily labs Assessment & Plan (06/12/2025 10:29 PM EDT): Resume home medications when appropriate Monitor kidney function with daily labs Hypertension 06/12/2025 Overview (06/12/2025): Resume home medications as appropriate Assessment & Plan (06/18/2025 9:56 AM EDT): Resume home medications as appropriate Assessment & Plan (06/17/2025 8:57 AM EDT): Resume home medications as appropriate Assessment & Plan (06/16/2025 10:57 AM EDT): Resume home medications as appropriate Assessment & Plan (06/15/2025 9:12 AM EDT): Resume home medications as appropriate Assessment & Plan (06/14/2025 9:59 AM EDT): Resume home medications as appropriate Assessment & Plan (06/13/2025 12:03 PM EDT): Resume home medications as appropriate Assessment & Plan (06/12/2025 10:29 PM EDT): Resume home medications as appropriate Alcohol use disorder 06/12/2025 Overview (06/12/2025): 03/28: Reports he is abstinent for 3-4months, then resumes occasional alcohol around 2-3 glasses of wine a few times a week to 2 shots of bourbon a few times a week, last drink about a week ago. Monitor liver function with daily labs Assessment & Plan (06/18/2025 9:56 AM EDT): 03/28: Reports he is abstinent for 3-4months, then resumes occasional alcohol around 2-3 glasses of wine a few times a week to 2 shots of bourbon a few times a week, last drink about a week ago. Monitor liver function with daily labs - Continue CIWA monitoring - Continue Folate -PETH: 260 was 316 on 03/28/2025. - Continue PO Thiamine Assessment & Plan (06/17/2025 8:57 AM EDT): 03/28: Reports he is abstinent for 3-4months, then resumes occasional alcohol around 2-3 glasses of wine a few times a week to 2 shots of bourbon a few times a week, last drink about a week ago. Monitor liver function with daily labs - Continue CIWA monitoring - Continue Folate -PETH: 260 was 316 on 03/28/2025. - Start PO Thiamine Assessment & Plan (06/16/2025 12:52 PM EDT): 03/28: Reports he is abstinent for 3-4months, then resumes occasional alcohol around 2-3 glasses of wine a few times a week to 2 shots of bourbon a few times a week, last drink about a week ago. Monitor liver function with daily labs -Continue CIWA monitoring - Continue Thiamine/Folate -PETH pending Assessment & Plan (06/15/2025 9:12 AM EDT): 03/28: Reports he is abstinent for 3-4months, then resumes occasional alcohol around 2-3 glasses of wine a few times a week to 2 shots of bourbon a few times a week, last drink about a week ago. Monitor liver function with daily labs -CIWA, -Thiamine/Folate -PETH pending Assessment & Plan (06/14/2025 9:59 AM EDT): 03/28: Reports he is abstinent for 3-4months, then resumes occasional alcohol around 2-3 glasses of wine a few times a week to 2 shots of bourbon a few times a week, last drink about a week ago. Monitor liver function with daily labs -CIWA, -Thiamine/Folate -PETH pending Assessment & Plan (06/13/2025 12:03 PM EDT): 03/28: Reports he is abstinent for 3-4months, then resumes occasional alcohol around 2-3 glasses of wine a few times a week to 2 shots of bourbon a few times a week, last drink about a week ago. Monitor liver function with daily labs -CIWA, -Thiamine/Folate -PETH pending Assessment & Plan (06/12/2025 10:29 PM EDT): 03/28: Reports he is abstinent for 3-4months, then resumes occasional alcohol around 2-3 glasses of wine a few times a week to 2 shots of bourbon a few times a week, last drink about a week ago. Monitor liver function with daily labs SCC (squamous cell carcinoma), leg, left 025 Overview (06/12/2025): Skin biopsy in March 2025 confirmed SCC of left leg Continue to monitor Assessment & Plan (06/18/2025 9:56 AM EDT): Skin biopsy in March 2025 confirmed SCC of left leg Continue to monitor Assessment & Plan (06/17/2025 8:57 AM EDT): Skin biopsy in March 2025 confirmed SCC of left leg Continue to monitor Assessment & Plan (06/16/2025 10:57 AM EDT): Skin biopsy in March 2025 confirmed SCC of left leg Continue to monitor Assessment & Plan (06/15/2025 9:12 AM EDT): Skin biopsy in March 2025 confirmed SCC of left leg Continue to monitor Assessment & Plan (06/14/2025 9:59 AM EDT): Skin biopsy in March 2025 confirmed SCC of left leg Continue to monitor Assessment & Plan (06/13/2025 10:49 AM EDT): Skin biopsy in March 2025 confirmed SCC of left leg Continue to monitor Assessment & Plan (06/12/2025 10:29 PM EDT): Skin biopsy in March 2025 confirmed SCC of left leg Continue to monitor Electrolyte abnormality 06/12/2025 Overview (06/12/2025): Replace per ICU sliding scale protocol. Assessment & Plan (06/18/2025 9:56 AM EDT): Replace per ICU sliding scale protocol. Assessment & Plan (06/17/2025 8:57 AM EDT): Replace per ICU sliding scale protocol. Assessment & Plan (06/16/2025 10:57 AM EDT): Replace per ICU sliding scale protocol. Assessment & Plan (06/15/2025 9:12 AM EDT): Replace per ICU sliding scale protocol. Assessment & Plan (06/14/2025 9:59 AM EDT): Replace per ICU sliding scale protocol. Assessment & Plan (06/13/2025 10:49 AM EDT): Replace per ICU sliding scale protocol. Assessment & Plan (06/12/2025 10:29 PM EDT): Replace per ICU sliding scale protocol. Severe obesity (BMI 35.0-39.9) with comorbidity 06/03/2025 Assessment & Plan (06/18/2025 9:56 AM EDT): Complicates all aspects of care. Assessment & Plan (06/17/2025 8:57 AM EDT): Complicates all aspects of care. Assessment & Plan (06/16/2025 10:57 AM EDT): Complicates all aspects of care. Assessment & Plan (06/15/2025 9:12 AM EDT): Complicates all aspects of care. Assessment & Plan (06/14/2025 9:59 AM EDT): Complicates all aspects of care. Assessment & Plan (06/13/2025 10:49 AM EDT): Complicates all aspects of care. Assessment & Plan (06/12/2025 10:29 PM EDT): Complicates all aspects of care. Current Treatment and Therapy Plans No current plan information found. Past Treatment and Therapy Plans No past plan information found. Lifetime Dose Tracking * Chemical Lifetime Dose Automatic Entry Manual Entr y Fluoro Time 1.248 minutes 1.248 minutes 0 minutes Air Kerma 79.98 mGy 79.98 mGy 0 mGy CTDIvol 134 mGy 134 mGy 0 mGy Radiation (DLP) 801 mGy-cm 801 mGy-cm 0 mGy-cm Resolved Problems Problem Noted Date Diagnosed Date Resolved Date Metabolic encephalopathy 06/17/2025 Assessment & Plan (06/17/2025 10:54 AM EDT): Patient unable to follow commands this AM. Has remained off sedation for over 24 hours. TSH and Free T4 pending. Ammonia elevated 137. Lactulose started, mentation reportedly improved. Continue Lactulose. Head CT pending. Hypocalcemia 06/13/2025 06/18/2025 Assessment & Plan (06/17/2025 8:57 AM EDT): -Monitor daily labs, -ICU electrolyte replacement protocol Assessment & Plan (06/16/2025 10:57 AM EDT): -Monitor daily labs, -ICU electrolyte replacement protocol Assessment & Plan (06/15/2025 9:12 AM EDT): -Monitor daily labs, -ICU electrolyte replacement protocol Assessment & Plan (06/14/2025 9:59 AM EDT): -Monitor daily labs, -ICU electrolyte replacement protocol Assessment & Plan (06/13/2025 12:03 PM EDT): -Monitor daily labs, -ICU electrolyte replacement protocol On mechanically assisted ventilation 06/12/2025 06/18/2025 Assessment & Plan (06/17/2025 8:57 AM EDT): Intubated for procedure Increased FiO2 overnight 06/13, [...] alarming. Patient still unable to follow commands. Assessment & Plan (06/16/2025 12:52 PM EDT): Intubated for procedure Increased FiO2 overnight 06/13, likely r/t increased PEEP and Shunt PEEP decreased, maintain at 5 Wean FiO2 for SpO2 >92% Continue aggressive pulm secretion mobilization Continue chlorhexidine per vent bundle PST as tolerated PRN CXR, blood gasses and nebs 06/16: Tolerating PS, but not following commands. Continue to hold any sedating medications. Assessment & Plan (06/15/2025 9:12 AM EDT): Intubated for procedure Increased FiO2 overnight 06/13, likely r/t increased PEEP and Shunt PEEP decreased, maintain at 5 Wean FiO2 for SpO2 >92% Continue aggressive pulm secretion mobilization Continue chlorhexidine per vent bundle PST as tolerated PRN CXR, blood gasses and nebs Assessment & Plan (06/14/2025 9:59 AM EDT): Intubated for procedure Increased FiO2 overnight, likely r/t increased PEEP and Shunt PEEP decreased, maintain at 5 Wean FiO2 for SpO2 >92% Continue aggressive pulm secretion mobilization Continue chlorhexidine per vent bundle PST as tolerated PRN CXR, blood gasses and nebs Assessment & Plan (06/13/2025 10:49 AM EDT): Intubated for procedure Wean FiO2 for SpO2 >92% Continue aggressive pulm secretion mobilization Continue chlorhexidine per vent bundle PST as tolerated PRN CXR, blood gasses and nebs Assessment & Plan (06/12/2025 10:29 PM EDT): Intubated for procedure Wean FiO2 for SpO2 >92% Continue aggressive pulm secretion mobilization Continue chlorhexidine per vent bundle PST as tolerated PRN CXR, blood gasses and nebs
--- OUTSIDE RECORDS SUMMARY | 2025-07-25 16:30 | XMS_ITS | Encounter Summary ---
Author Organization [facility] Address [address] [place] [address] Care Team Providers Care Older Worker Specialist Name Role Phone Murray Prajapati MD Primary Care Provider [phone] Reason for Visit * Auth/Cert Specialty Diagnoses / Procedures Referred By Silverio barone Referred To Contact Procedures NV LAPS SURG [id number] RPBIC RAD W/NRV SPARING ROBOT NV LAPS SURG BILATERAL TOTAL PELVIC LMPHADECTOMY ROBOTIC PROSTATECTOMY WITH NODES Referral ID Status Reason Start Date Expiration Date Visits Re quested Visits Authorized [id number] 1 1 Encounter Details Date Type Department Care Team (Late st Contact Info) Description 06/03/2025 Hospital Encounter [facility] OR [address] [place] [id number] Jayme Pereyra Jr., MD [address] [facility] [address] [place] [address] Social History Tobacco Use Types Packs/Day Years Used Date Smoking Tobacco: Never Assessed Abuse Screen Answer Date Recorded Unsafe at Home or Work/School Not on file Feels Threatened by Someone? Not on file 07/2023 Does Anyone Keep You from Co ntacting Others or Doint Things Outside the Home? Not on file 08/28/2023 Physical Sign of Abuse Present Not on file 1 Housing Stability Answer Date Recorded Current Living Arrangements Not on file 07/2023 Potentially Unsafe Housing Conditions Not on fern e 08/28/2023 Family and Community Support Answer Richard e Recorded Help with Day-to-Day Activities Not on file 08/28/2023 Lonely or Isolated Not on file 08/28/2023 Employment Answer Date Recorded Do you want help finding or keeping work or a [place] b? Not on file 08/28/2023 Disabilities Answer Date Recorded Concentrating, Remembering, or Making Decisions Difficulty Not on file 08/28/2023 Doing Errands Independently Difficulty Not on fi le 08/28/2023 Education Answer Date Recorded Help with school or training? Not on file Preferred Language Not on file 08/28/2023 Sex and Gender Information Value Date Recorded Sex Assigned at Not on file Legal Sex Male 1:28 PM EDT Gender Identity Not on file Sexual Orientation Not on file documented as of this encounter Plan of Treatment Not on file documented as of this encounter Visit Diagnoses Not on filedocumented in this encounter Additional Health Concerns Infection Onset Date Last Indicated Resolved Time MRSA Comment:Added from external infection. Source: [facility]. 04/29/2025 documented as of this encounter Care Teams Older Worker Specialist Relationship Specialty Start Date End Date Murray Prajapati MD [facility] [address] [place] [id number] PCP - General Internal Medicine 05/29/24 documented as of this encounter
--- OUTSIDE RECORDS SUMMARY | 2025-07-25 16:31 | XMS_ITS | Encounter Summary ---
Author Organization [facility] Address [address] [place] [address] Care Team Providers Care Call Center Specialist Name Role Phone Murray Prajapati MD Primary Care Provider Jaja Camara INSTRUMENT AND CONTROLS TECHNICIAN Unavailable [phone] Dyllan Paul MD Unavailable [phone] Encounter Details Date Type Department Care Team (Latest Contact Info) Description 06/12/2025 Travel Social History Tobacco Use Types Packs/Day [...] Risk Indicated 06/12/2025 12:41 PM EDT Carol Cervantes RN * Question Answer Date of Assessment Author 1. Wish to be (Past 1 Month) No 06/12/2025 12:41 PM EDT Erika Proctor RN 2. Non-Specific Active Suicidal Thoughts (Past 1 Month) No 06/12/2025 12:41 PM EDT Erika Proctor RN 6. Suicidal Behavior (Lifetime) No 06/12/2025 12:41 PM EDT Erika Proctor RN documented as of this encounter Plan of Treatment Upcoming Encounters Date Type Department Care Team (Latest Contact Info) Description 08/14/2025 12:25 PM EDT Hospital Encounter [facility] Operating Room [address] [place] [address] Dyllan Paul MD [address] [address] 08/14/2025 12:25 PM EDT - 08/14/2025 1:55 PM EDT Surgery [facility] Operating Room [address] [place] [address] Dyllan Paul MD [address] [address] URETEROSCOPY, WITH LASER LITHOTRIPSY [[id number] (CPT )] 10/28/2025 8:00 AM EST Office Visit [place] [facility] [address], 2nd [place] [address] Pavan Aldrich MD [address] [facility] [address] [place] [address] Scheduled Procedures Name Priority Associated [...] documented as of this encounter Care Teams Call Center Specialist Relationship Specialty Start Date End Date Murray Prajapati MD 1210 [facility] [address] [place] [address] PCP - General 03/06/23 Jaja Camara APRN 1210 [place] [facility] [address] [place] [address] Referring Physician Gastroenterology 03/06/23 Dyllan Paul MD [address] [address] Surgeon Urology 04/29/25 documented as of this encounter
--- OUTSIDE RECORDS SUMMARY | 2025-07-25 16:31 | XMS_ITS | Encounter Summary ---
Author Organization Healthcare Address [address] [place] [address] Care Team Providers Care Customer Specialist Name Role Phone Murray Prajapati MD Primary Care Provider [phone] Jaja Camara DRY END OPERATOR Unavailable [phone] Dyllan Paul MD Unavailable [phone] Marlin Martinez RN Unavailable Unavailable Wendy Crad DIGITAL INTERN Unavailable Unavaila ble Encounter Details Date Type Department Care Team (Late st Contact Info) Description 08/24/2010 Orders Only External Location [address] [place] [address] Provider, External Social History Tobacco Use Types [...] Description 08/14/2025 12:25 PM EDT Hospital Encounter [facility] S Operating Room [address] [place] [address] Dyllan Paul MD [address] [place] [address] 08/14/2025 12:25 PM EDT - 08/14/2025 1:55 PM EDT Surgery [facility] Operating Room [address] [place] [address] Dyllan Paul MD [address] [place] [address] URETEROSCOPY, WITH LASER LITHOTRIPSY [[id number] (CPT )] 10/28/2025 8:00 AM EST Office Visit [place] [facility] [address] 2[address] [place] [address] Pavan Aldrich MD [address] [place] [address] Scheduled Procedures Name Priority Associated [...] difficile Rule-Out 06/23/2025 06/23/20252024 11:44 AM EDT documented as of this encounter Care Teams Customer Specialist Relationship Specialty Start Date End Date Murray Prajapati MD 1210 [facility] [address] [place] [address] PCP - General 03/06/23 Jaja Camara APRN 1210 [facility] [address] [place] [address] Referring Physician Gastroenterology 03/06/23 Dyllan Paul MD [address] [address] Surgeon Urology 04/29/25 Marlin Martinez, RN [facility] Registered Nurse 06/30/25 06/30/25 Wendy Card LPN VALUE-BASED TRANSFORMATION PROGRAM TCM Nurse 07/07/25 documented as of this encounter
--- OUTSIDE RECORDS SUMMARY | 2025-07-25 16:31 | XMS_ITS | Encounter Summary ---
Author Organization Healthcare Address [address] [place] [address] Care Team Providers Care Research Consultant Name Role Phone Murray Prajapati MD Primary Care Provider [phone] Jaja Camara LEAD JAVA SOFTWARE ENGINEER Unavailable [phone] Dyllan Paul MD Unavailable [phone] Marlin Martinez RN Unavailable Unavailable Wendy Card CULINARY INTERNSHIP Unavailable Unavaila ble Encounter Details Date Type Department Care Team (Late st Contact Info) Description 10/26/2010 Orders Only External Location [address] [place] [address] Provider, External Social History Tobacco Use Types [...] 08/14/2025 12:25 PM EDT Hospital Encounter [facility] S Operating Room [address] [place] [address] Dyllan Paul MD [address] [place] [address] 08/14/2025 12:25 PM EDT - 08/14/2025 1:55 PM EDT Surgery [facility] Operating Room [address] [place] [address] Dyllan Paul MD [address] [place] [address] URETEROSCOPY, WITH LASER LITHOTRIPSY [[id number] (CPT )] 10/28/2025 8:00 AM EST Office Visit [place] [facility] [address] 2nd [place] [address] Pavan Aldrich MD [address] [place] [address] Scheduled Procedures Name Priority Associated [...] documented as of this encounter Care Teams Research Consultant Relationship Specialty Start Date End Date Murray Prajapati MD 1210 [facility] [address] [place] [address] PCP - General 03/06/23 Jaja Camara APRN 1210 [facility] [address] [place] [address] Referring Physician Gastroenterology 03/06/23 Dyllan Paul MD [address] [address] Surgeon Urology 04/29/25 Marlin Martinez, RN [facility] Registered Nurse 06/30/25 06/30/25 Wendy Card LPN VALUE-BASED TRANSFORMATION PROGRAM TCM Nurse 07/07/25 documented as of this encounter
--- OUTSIDE RECORDS SUMMARY | 2025-07-25 16:31 | XMS_ITS | Encounter Summary ---
Author Organization Healthcare Address [address] [place] [address] Care Team Providers Care Trend Investigator Name Role Phone Murray Prajapati MD Primary Care Provider [phone] Jaja Camara GLOVE STITCHER Unavailable [phone] Dyllan Paul MD Unavailable [phone] Encounter Details Date Type Department Care Team (Latest Contact Info) Description 06/06/2025 Travel Social History Tobacco Use Types Packs/Day [...] Hospital Encounter [facility] Operating Room [address] [place] [address] Dyllan Paul MD [address] [email or web address] [address] [place] [address] 08/14/2025 12:25 PM EDT - 08/14/2025 1:55 PM EDT Surgery [facility] Operating Room [address] [place] [address] Dyllan Paul MD [address] [facility] [[email or web address] [address] [place] [address] URETEROSCOPY, WITH LASER LITHOTRIPSY [[id number] (CPT )] 10/28/2025 8:00 AM EST Office Visit [place] [facility] [address], 2nd [place] [address] Pavan Aldrich MD [address] [place] [address] Scheduled Procedures Name Priority Associated [...] documented as of this encounter Care Teams Trend Investigator Relationship Specialty Start Date End Date Murray Prajapati MD [address] [place] [id number] PCP - General 03/06/23 Jaja Camara APRN 1210 [facility] [address] [place] [address] Referring Physician Gastroenterology 03/06/23 Dyllan Paul MD [address] [place] [address] Surgeon Urology 04/29/25 documented as of this encounter
--- OUTSIDE RECORDS SUMMARY | 2025-07-25 16:31 | XMS_ITS | Encounter Summary ---
Author Organization [facility] Address [address] [place] [address] Care Team Providers Care Saddle And Side Wire Stitcher Name Role Phone Murray Prajapati MD Primary Care Provider [phone] Jaja Camara SURGICAL SALES REPRESENTATIVE Unavailable [phone] Dyllan Paul MD Unavailable [phone] Encounter Details Date Type Department Care Team (Late st Contact Info) Description 06/03/2025 Telephone [place] [facility] [address], 1[address] [place] [address] Lanre Franklin MD [address] [place] [address] Social History Tobacco Use Types [...] [facility] Operating Room [address] [place] [address] Dyllan Paul MD [address] [facility] [address] [place] [address] 08/14/2025 12:25 PM EDT - 08/14/2025 1:55 PM EDT Surgery [facility] Operating Room [address] [place] [address] Dyllan Paul MD [id number] [place] [address] URETEROSCOPY, WITH LASER LITHOTRIPSY [[id number] (CPT )] 10/28/2025 8:00 AM EST Office Visit [place] [facility] [address], 2nd [place] [address] Pavan Aldrich MD [address] [facility] [address] [place] [address] Scheduled Procedures Name Priority Associated Diagnoses Date/Ti [...] documented as of this encounter Care Teams Saddle And Side Wire Stitcher Relationship Specialty Start Date End Date Murray Prajapati MD 1210 [facility] [address] [place] [address] PCP - General 03/06/23 Jaja Camara APRN [address] [place] [address] [place] [address] Referring Physician Gastroenterology 03/06/23 Dyllan Paul MD [address] [facility] [address] [place] [address] Surgeon Urology 04/29/25 documented as of this encounter
--- OUTSIDE RECORDS SUMMARY | 2025-07-25 16:31 | XMS_ITS | Encounter Summary ---
Author Organization Healthcare Address [address] [place] [address] Care Team Providers Care Food And Beverage Analyst Name Role Phone Murray Prajapati MD Primary Care Provider [phone] Jaja Camara FORMING FIXER Unavailable [phone] Dyllan Paul MD Unavailable [phone] Marlin Martinez RN Unavailable Unavailable Wendy Card CLEARING INSPECTOR Unavailable Unavaila ble Encounter Details Date Type Department Care Team (Late st Contact Info) Description 01/05/2023 Orders Only External Location [address] [place] [address] Provider, External Social History Tobacco Use Types [...] Description 08/14/2025 12:25 PM EDT Hospital Encounter [facility] S Operating Room [address] [place] [address] Dyllan Paul MD [address] [facility] [address] [place] [address] 08/14/2025 12:25 PM EDT - 08/14/2025 1:55 PM EDT Surgery [facility] Operating Room [address] [place] [address] Dyllan Paul MD [address] [place] [address] URETEROSCOPY, WITH LASER LITHOTRIPSY [[id number] (CPT )] 10/28/2025 8:00 AM EST Office Visit [place] [facility] [address], [address] [place] [address] Pavan Aldrich MD [address] [place] [address] Scheduled Procedures Name Priority Associated [...] Computed Tomogra phy 01/05/2023 5:07 AM EST External Provider IMG CT PROCEDURES Final Result documented in this encounter Visit Diagnoses Not on filedocumented in this encounter Additional Health Concerns 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 difficile Rule-Out 06/23/2025 06/23/20252024 11:44 AM EDT documented as of this encounter Care Teams Food And Beverage Analyst Relationship Specialty Start Date End Date Murray Prajapati MD [address] [place] [address] PCP - General 03/06/23 Jaja Camara APRN 1210 [facility] [address] [place] [address] Referring Physician Gastroenterology 03/06/23 Dyllan Paul MD [address] [place] [address] Surgeon Urology 04/29/25 Marlin Martinez, RN [facility] Registered Nurse 06/30/25 06/30/25 Wendy Card, [facility] VALUE-BASED TRANSFORMATION PROGRAM TCM Nurse 07/07/25 documented as of this encounter
--- OUTSIDE RECORDS SUMMARY | 2025-07-25 16:31 | XMS_ITS | Encounter Summary ---
Author Organization Healthcare Address [address] [place] [address] Care Team Providers Care Instructor Business Education Name Role Phone Murray Prajapati MD Primary Care Provider [phone] Jaja Camara EMPLOYMENT COACH Unavailable [phone] Dyllan Paul MD Unavailable [phone] Encounter Details Date Type Department Care Team (Latest Contact Info) Description 06/05/2025 Travel Social History Tobacco Use Types Packs/Day [...] [facility] S Operating Room [address] [place] [address] Dyllan Paul MD [address] [place] [address] 08/14/2025 12:25 PM EDT - 08/14/2025 1:55 PM EDT Surgery [facility] Operating Room [address] [place] [address] Dyllan Paul MD [address] [facility] [address] [place] [address] URETEROSCOPY, WITH LASER LITHOTRIPSY [[id number] (CPT )] 10/28/2025 8:00 AM EST Office Visit [place] [facility] [address], 2nd [place] [address] Pavan Aldrich MD [address] [facility] [address] [place] [address] Scheduled Procedures Name Priority Associated [...] documented as of this encounter Care Teams Instructor Business Education Relationship Specialty Start Date End Date Murray Prajapati MD [address] [place] [address] PCP - General 03/06/23 Jaja Camara APRN 1210 [facility] [address] [place] [address] Referring Physician Gastroenterology 03/06/23 Dyllan Paul MD [address] [facility] [address] [place] [address] Surgeon Urology 04/29/25 documented as of this encounter
--- OUTSIDE RECORDS SUMMARY | 2025-07-25 16:32 | XMS_ITS | Encounter Summary ---
Author Organization [facility] Address [address] [place] [address] Care Team Providers Care Forger Helper Name Role Phone Murray Prajapati MD Primary Care Provider [phone] Jaja Camara SMALL BUSINESS BANKING OFFICER Unavailable [phone] Dyllan Paul MD Unavailable [phone] Encounter Details Date Type Department Care Team (Latest Contact Info) Description 06/15/2025 Travel Social History Tobacco Use Types Packs/Day [...] any time in the past 12 m [facility], were you homeless or living in a long term (including now)? No 06/16/2025 Utilities Answer Date [...] Description 08/14/2025 12:25 PM EDT Hospital Encounter [facility] S Operating Room [address] [place] [address] Dyllan Paul MD [address] [address] 08/14/2025 12:25 PM EDT - 08/14/2025 1:55 PM EDT Surgery [facility] S Operating Room [address] [place] [address] Dyllan Paul MD [address] [place] [address] URETEROSCOPY, WITH LASER LITHOTRIPSY [[id number] (CPT )] 10/28/2025 8:00 AM EST Office Visit [place] [facility] [address], 2nd [place] [address] Pavan Aldrich MD [address] [place] [address] Scheduled Procedures Name Priority Associated [...] documented as of this encounter Care Teams Forger Helper Relationship Specialty Start Date End Date Murray Prajapati MD [address] [place] [address] PCP - General 03/06/23 Jaja Camara APRN 1210 [facility] [address] [place] [address] Referring Physician Gastroenterology 03/06/23 Dyllan Paul MD [address] [place] [address] Surgeon Urology 04/29/25 documented as of this encounter
--- OUTSIDE RECORDS SUMMARY | 2025-07-25 16:32 | XMS_ITS | Encounter Summary ---
Author Organization [facility] Address [address] [place] [address] Care Team Providers Care Railways Assistant Name Role Phone Murray Prajapati MD Primary Care Provider [phone] Jaja Camara BDC MANAGER Unavailable [phone] Dyllan Paul MD Unavailable [phone] Encounter Details Date Type Department Care Team (Latest Contact Info) Description 06/16/2025 Travel Social History Tobacco Use Types Packs/Day [...] a group home (including now)? No 06/16/2025 Utilities Answer Date [...] 12:25 PM EDT Hospital Encounter [facility] S Operating Room [address] [place] [address] Dyllan Paul MD [address] [address] 08/14/2025 12:25 PM EDT - 08/14/2025 1:55 PM EDT Surgery [facility] S Operating Room [address] [place] [address] Dyllan Paul MD [address] [place] [address] URETEROSCOPY, WITH LASER LITHOTRIPSY [[id number] (CPT )] 10/28/2025 8:00 AM EST Office Visit [place] [facility] [address], 2nd [place] [address] Pavan Aldrich MD [address] [facility] [address] [place] [address] Scheduled Procedures Name Priority Associated [...] documented as of this encounter Care Teams Railways Assistant Relationship Specialty Start Date End Date Murray Prajapati MD 1210 [facility] [address] [place] [address] PCP - General 03/06/23 Jaja Camara APRN 1210 [facility] [address] [place] [address] Referring Physician Gastroenterology 03/06/23 Dyllan Paul MD [address] [facility] [address] [place] [address] Surgeon Urology 04/29/25 documented as of this encounter
--- OUTSIDE RECORDS SUMMARY | 2025-07-25 16:32 | XMS_ITS | Encounter Summary ---
Author Organization Healthcare Address [address] [place] [address] Care Team Providers Care Electrical Assembler Name Role Phone Murray Prajapati MD Primary Care Provider [phone] [place] J COMMUNITY SERVICE WORKER Unavailable [phone] Dyllan Paul MD Unavailable [phone] Encounter Details Date Type Department Care Team (Latest Contact Info) Description 06/14/2025 Travel Social History Tobacco Use Types Packs/Day [...] [facility] S Operating Room [address] [place] [address] Dyllan Paul MD [address] [facility] [address] [place] [address] 08/14/2025 12:25 PM EDT - 08/14/2025 1:55 PM EDT Surgery [facility] S Operating Room [address] [place] [address] Dyllan Paul MD [address] [facility] [address] [place] [address] URETEROSCOPY, WITH LASER LITHOTRIPSY [[id number] (CPT )] 10/28/2025 8:00 AM EST Office Visit [place] [facility] [address], 2[address] [place] [address] Pavan Aldrich MD [address] [place] [address] Scheduled Procedures Name Priority Associated [...] documented as of this encounter Care Teams Electrical Assembler Relationship Specialty Start Date End Date Murray Prajapati MD [address] [place] [id number] PCP - General 03/06/23 Jaja Camara APRN 1210 [facility] [address] [place] [address] Referring Physician Gastroenterology 03/06/23 Dyllan Paul MD [address] [place] [address] Surgeon Urology 04/29/25 documented as of this encounter
--- OUTSIDE RECORDS SUMMARY | 2025-07-25 16:32 | XMS_ITS | Encounter Summary ---
Author Organization [facility] Address [address] [place] [address] Care Team Providers Care Clerk General Office Name Role Phone Murray Prajapati MD Primary Care Provider [phone] Jaja Camara SECURITY SYSTEMS INSTALLER Unavailable [phone] Dyllan Paul MD Unavailable [phone] Encounter Details Date Type Department Care Team (Latest Contact Info) Description 06/17/2025 Travel Social History Tobacco Use Types Packs/Day [...] any time in the past 12 m [facility], were you homeless or living in a jail (including now)? No 06/16/2025 Utilities Answer Date [...] Date of Assessment Author No Risk Indicated 06/17/2025 8:00 PM EDT Aurea Mccarthy RN * Question Answer Date of Assessment Author 1. Wish to be (Past 1 Month) No 025 8:00 PM EDT Aurea Schaefer, RN 2. Non-Specific Active Suici tyra Thoughts (Past 1 Month) No 06/17/2025 8:00 PM EDT Kole Schaefer, RN 6. Suicidal Behavior (Lifetime) No 8:00 PM EDT Aurea Schaefer, RN documented as of this encounter Plan of Treatment Upcoming Encounters Date Type Department Care Team (Latest Contact Info) Description 08/14/2025 12:25 PM EDT Hospital Encounter [facility] Operating Room [address] [place] [address] Dyllan Paul MD [address] [facility] [address] [place] [address] 08/14/2025 12:25 PM EDT - 08/14/2025 1:55 PM EDT Surgery [facility] S Operating Room [address] [place] [address] Dyllan Paul MD [address] [place] [address] URETEROSCOPY, WITH LASER LITHOTRIPSY [[id number] (CPT )] 10/28/2025 8:00 AM EST Office Visit [place] [facility] [address], [address] [place] [address] Pavan Aldrich MD [address] [facility] [address] [place] [address] Scheduled Procedures Name Priority Associated [...] documented as of this encounter Care Teams Clerk General Office Relationship Specialty Start Date End Date Murray Prajapati MD [address] [place] [address] PCP - General 03/06/23 Jaja Camara APRN [address] [place] [address] [place] [address] Referring Physician Gastroenterology 03/06/23 Dyllan Paul MD [address] [facility] [address] [place] [address] Surgeon Urology 04/29/25 documented as of this encounter
--- OUTSIDE RECORDS SUMMARY | 2025-07-25 16:32 | XMS_ITS | Encounter Summary ---
Author Organization [facility] Address [address] [place] [address] Care Team Providers Care Supervisor Orchard Name Role Phone Murray Prajapati MD Primary Care Provider [phone] Jaja Camara LEATHER PARTS MATCHER Unavailable [phone] Dyllan Paul MD Unavailable [phone] Reason for Visit * Reason Onset Date Comments [facility] Care 06/27/2025 Encounter Details Date Type Department Care Team (Late st Contact Info) Description 06/27/2025 Telephone [facility] [address] [place] [address] Dyllan Paul MD [address] [place] [address] [facility] Social History Tobacco Use Types Packs/Day Years [...] drink first t rafy in the morning (EYE-SENIOR SCIENTIST) to steady your nerves or to get rid of a hangover? 0 06/28/2025 CAGE Questionnaire Score 0 025 Utilities Answer Date Recorded In the past 12 months has th e electric, gas, oil, or water [facility] threatened to shut off services in your home? No 06/16/2025 PHQ-2A Answer Date Recorded Patient Health Questionnaire-2 Score 0 05/04/2023 Sex and Gender Information Value Date Recorded Sex Assigned at Not on file Legal Sex Male 8:25 PM EDT Gender Identity Not on file Sexual Orientation Not on file documented as of this encounter Miscellaneous Notes * Telephone Encounter - Kalyani Fernandez - 06/27/2025 10:45 AM EDT Attempt 1: Care Guide (CG) called the patient (pt) at [phone] and successfully completed outreach. Pt reported they are doing well and have no needs at this time. documented in this encounter Plan of Treatment Upcoming Encounters Date Type Department Care Team (Latest Contact Info) Description 08/14/2025 12:25 PM EDT Hospital Encounter [facility] Operating Room [address] [place] [address] Dyllan Paul MD [address] [phone] 08/14/2025 12:25 PM EDT - 08/14/2025 1:55 PM EDT Surgery [facility] Operating Room [address] [place] [address] Dyllan Paul MD [address] [facility] [address] [place] [address] URETEROSCOPY, WITH LASER LITHOTRIPSY [[id number] (CPT )] 10/28/2025 8:00 AM EST Office [facility] [place] [facility] [address] [place] [address] Pavan Aldrich MD [address] [facility] [address] [place] [address] Scheduled Procedures Name Priority Associated [...] as of this encounter Care Teams Supervisor Orchard Relationship Specialty Start Date End Date Murray Prajapati MD [address] [facility] [address] [place] [address] PCP - General 03/06/23 Jaja Camara APRN 1210 [facility] [address] [place] [address] Referring Physician Gastroenterology 03/06/23 Dyllan Paul MD [address] [place] [address] Surgeon Urology 04/29/25 documented as of this encounter
--- OUTSIDE RECORDS SUMMARY | 2025-07-25 16:33 | XMS_ITS | Encounter Summary ---
Author Organization [facility] Address [address] [place] [address] Care Team Providers Care Make Up Editor Name Role Phone Murray Prajapati MD Primary Care Provider [phone] Jaja Camara DIESEL MAINTENANCE ELECTRICIAN Unavailable [phone] Dyllan Paul MD Unavailable [phone] Marlin Martinez RN Unavailable Unavailable Wendy Card BUSINESS LIAISON MANAGER Unavailable Unavaila ble Reason for Visit * Reason Comments Med Refill Encounter Details Date Type Department Care Team (Late st Contact Info) Description 06/18/[address] [facility] [address] [facility] [address] [place] [address] Virginia Campa MD [address] [facility] [address] [place] [address] Esophageal varices without bleeding, unspecified esophageal varices type (CMS/HCC) Social History Tobacco Use Types Packs/Day Years [...] any time in the past 12 m [facility], were you homeless or living in a senior care (including now)? No 06/16/2025 Utilities Answer Date Recorded In the past 12 months has th e [employer], gas, oil, or water [employer] threatened to shut off services in your [...] Date of Assessment Author No Risk Indicated 06/21/2025 8:00 AM EDT Vira Hernandez RN * Question Answer Date of Assessment Author 1. Wish to be (Past 1 Month) No 025 8:00 AM EDT Vira Hernandez, RN 2. Non-Specific Active Suici tyra Thoughts (Past 1 Month) No 06/21/2025 8:00 AM EDT Vira Hernandez , RN 6. Suicidal Behavior (Lifetime) No 8:00 AM EDT Vira Hernandez, RN documented as of this encounter Plan of Treatment Upcoming Encounters Date Type Department Care Team (Latest Contact Info) Description 08/14/2025 12:25 PM EDT Hospital Encounter [facility] Operating Room [address] [place] [address] Dyllan Paul MD [address] [phone] 08/14/2025 12:25 PM EDT - 08/14/2025 1:55 PM EDT Surgery [facility] Operating Room [address] [place] [address] Dyllan Paul MD [address] [address] URETEROSCOPY, WITH LASER LITHOTRIPSY [[id number] (CPT )] 10/28/2025 8:00 AM EST Office Visit [place] [facility] [address] [place] [address] Pavan Aldrich MD [address] [facility] [address] [place] [address] Scheduled Procedures Name Priority Associated Diagnoses Date/Ti me URETEROSCOPY, WITH LASER LITHOTRIPSY Ureteral stone 08/14/2025 12:25 PM EDT documented as of this encounter Visit Diagnoses Diagnosis Esophageal varices without bleeding, unspecified esophageal varices type (CMS/HCC) Ureteral stone Calculus of ureter documented in this encounter Additional Health Concerns 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 C. difficile Rule-Out 06/23/2025 06/23/20252024 11:44 AM EDT Assessment Noted Time PHQ-9 Depression Total Score: 0 04/29/20 12:43 PM EDT A fall risk assessment has been complete d for the patient 04/29/2025 12:44 PM EDT A Body Mass Index follow-up plan has been documented for the patient 06/25/2025 5:19 PM EDT documented as of this encounter Care Teams Make Up Editor Relationship Specialty Start Date End Date Murray Prajapati MD [address] [facility] [address] [place] [id number] PCP - General 03/06/23 Jaja Camara APRN [address] [place] [address] Referring Physician Gastroenterology 03/06/23 Dyllan Paul MD [address] [place] [address] Surgeon Urology 04/29/25 Marlin Martinez, RN [facility] Registered Nurse 06/30/25 06/30/25 Wendy Card LPN VALUE-BASED TRANSFORMATION PROGRAM TCM Nurse 07/07/25 documented as of this encounter
--- OUTSIDE RECORDS SUMMARY | 2025-07-25 16:33 | XMS_ITS | Encounter Summary ---
Author Organization [facility] Address [address] [place] [address] Care Team Providers Care Can Stacker Name Role Phone Murray Prajapati MD Primary Care Provider Jaja Camara STOCK PARTS INSPECTOR Unavailable [phone] Dyllan Paul MD Unavailable [phone] Encounter Details Date Type Department Care Team (Latest Contact Info) Description 06/20/2025 Travel Social History Tobacco Use Types Packs/Day [...] the past [address] [facility], were you homeless or living in a [...] Author No Risk Indicated 06/20/2025 8:00 AM Rosalio House RN * Question Answer Date of Assessment Author 1. Wish to be (Past 1 Month) No 06/20/2025 8:00 AM Samia House, RN 2. Non-Specific Active Suici tyra Thoughts (Past 1 Month) No 06/20/2025 8:00 AM Claudia House, RN 6. Suicidal Behavior (Lifetime) No 8:00 AM Samia House, RN documented as of this encounter Plan of Treatment Upcoming Encounters Date Type Department Care Team (Latest Contact Info) Description 08/14/2025 12:25 PM EDT Hospital Encounter [facility] Operating Room [address] [place] [address] Dyllan Paul MD [address] [facility] [address] [place] [address] 08/14/2025 12:25 PM EDT - 08/14/2025 1:55 PM EDT Surgery [facility] Operating Room [address] [place] [address] Dyllan Paul MD [id number] [place] [address] URETEROSCOPY, WITH LASER LITHOTRIPSY [[id number] (CPT )] 10/28/2025 8:00 AM EST Office Visit [place] [facility] [address] [place] [address] Pavan Aldrich MD [address] [facility] [address] [place] [address] Scheduled Procedures Name Priority Associated [...] documented as of this encounter Care Teams Can Stacker Relationship Specialty Start Date End Date Murray Prajapati MD [address] [place] [address] PCP - General 03/06/23 Jaja Camara APRN [address] [place] [address] [place] [address] Referring Physician Gastroenterology 03/06/23 Dyllan Paul MD [address] [facility] [address] [place] [address] Surgeon Urology 04/29/25 documented as of this encounter
--- OUTSIDE RECORDS SUMMARY | 2025-07-25 16:33 | XMS_ITS | Encounter Summary ---
Author Organization [facility] Address [address] [place] [address] Care Team Providers Care Oncology Social Work Name Role Phone Murray Prajapati MD Primary Care Provider [phone] Jaja Camara CHANNEL MARKETING MANAGER Unavailable [phone] Dyllan Paul MD Unavailable [phone] Encounter Details Date Type Department Care Team (Latest Contact Info) Description 06/22/2025 Travel Social History Tobacco Use Types Packs/Day [...] Date of Assessment Author No Risk Indicated 06/22/2025 7:30 AM EDT Joe Rosa RN * Question Answer Date of Assessment Author 1. Wish to be (Past 1 Month) No 025 7:30 AM Joe Whitaker, RN 2. Non-Specific Active Suici tyra Thoughts (Past 1 Month) No 06/22/2025 7:30 AM KELSIET Valerie Rosa RN 6. Suicidal Behavior (Lifetime) No 7:30 AM Joe Whitaker, RN documented as of this encounter Plan of Treatment Upcoming Encounters Date Type Department Care Team (Latest Contact Info) Description 08/14/2025 12:25 PM EDT Hospital Encounter [facility] Operating Room [address] [place] [address] Dyllan Paul MD [address] [facility] [address] [place] [address] 08/14/2025 12:25 PM EDT - 08/14/2025 1:55 PM EDT Surgery [facility] Operating Room [address] [place] [address] Dyllan Paul MD [id number] [place] [address] URETEROSCOPY, WITH LASER LITHOTRIPSY [[id number] (CPT )] 10/28/2025 8:00 AM EST Office Visit [place] [facility] [address], [address] [place] [address] Pavan Aldrich MD [address] [facility] [address] [place] [address] Scheduled Procedures Name Priority Associated [...] documented as of this encounter Care Teams Oncology Social Work Relationship Specialty Start Date End Date Murray Prajapati MD [address] [place] [address] PCP - General 03/06/23 Jaja Camara APRN [address] [place] [address] [place] [address] Referring Physician Gastroenterology 03/06/23 Dyllan Paul MD [address] [facility] [address] [place] [address] Surgeon Urology 04/29/25 documented as of this encounter
--- OUTSIDE RECORDS SUMMARY | 2025-07-25 16:33 | XMS_ITS | Encounter Summary ---
Author Organization [facility] Address [address] [place] [address] Care Team Providers Care Rag Production Worker Name Role Phone Murray Prajapati MD Primary Care Provider [phone] Jaja Camara ADJUNCT PSYCHOLOGY INSTRUCTOR Unavailable [phone] Dyllan Paul MD Unavailable [phone] Encounter Details Date Type Department Care Team (Latest Contact Info) Description 06/24/2025 Travel Social History Tobacco Use Types Packs/Day [...] [facility] ([facility])? No 06/16/2025 Utilities Answer Date Recorded In the past 12 months has th e [employer], gas, oil, or water company threatened to [...] No Risk Indicated 06/24/2025 8:00 PM EDT Nicolle White RN * Question Answer Date of Assessment Author 1. Wish to be (Past 1 Month) No 025 8:00 PM EDT Nicolle White, RN 2. Non-Specific Active Suici tyra Thoughts (Past 1 Month) No 06/24/2025 8:00 PM EDT Nicolle White, RN 6. Suicidal Behavior (Lifetime) No 8:00 PM EDT Nicolle White, RN documented as of this encounter Plan of Treatment Upcoming Encounters Date Type Department Care Team (Latest Contact Info) Description 08/14/2025 12:25 PM EDT Hospital Encounter [facility] Operating Room [address] [place] [address] Dyllan Paul MD [address] [facility] [address] [place] [address] 08/14/2025 12:25 PM EDT - 08/14/2025 1:55 PM EDT Surgery [facility] Operating Room [address] [place] [address] Dyllan Paul MD [address] [facility] [place] [address] URETEROSCOPY, WITH LASER LITHOTRIPSY [[id number] (CPT )] 10/28/2025 8:00 AM EST Office Visit [place] [facility] [address] [place] [address] Pavan Aldrich MD [address] [place] [address] Scheduled Procedures Name Priority Associated [...] documented as of this encounter Care Teams Rag Production Worker Relationship Specialty Start Date End Date Murray Prajapati MD [address] [place] [address] PCP - General 4/17/23 Jaja Camara APRN [address] [place] [address] [place] [address] Referring Physician Gastroenterology 03/06/23 Dyllan Paul MD [address] [facility] [address] [place] [address] Surgeon Urology 04/29/25 documented as of this encounter
--- OUTSIDE RECORDS SUMMARY | 2025-07-25 16:33 | XMS_ITS ---
Author Organization [facility] Address [address] [place] [address] Care Team Providers Care 5Th Grade Teacher Name Role Phone Murray Prajapati MD Primary Care Provider [phone] Jaja Camara CREDIT RISK OFFICER Unavailable [phone] Dyllan Paul MD Unavailable [phone] Wendy Card PHYSICIST NUCLEAR Unavailable Unavaila ble Transplant Episode Liver Candidate [facility] ([place], [place]) - [place] Referred on 03/27/2025 Marked as Ineligible on 06/17/2025 Reason: Substance Abuse Liver CoordinatorCorrie Williamson RN Fax: N/A Email: N/A Scores Score Value Updated Expires Exceptions/Sachi sons CPRA Not available MELD (Calc) 28 07/04/2025 Care Team Name Role Phone Fax Email Corrie Williamson RN Liver Coordinator [phone] N/A N/A Janis Rice It Application Architect [phone] N/A N/A Marco Joiner MD Surgeon [phone] N/A Events Pre-Transplant Referred: 03/27/2025 Committee: 03/31/2025
--- OUTSIDE RECORDS SUMMARY | 2025-07-25 16:34 | XMS_ITS | Encounter Summary ---
Author Organization Healthcare Address [address] [place] [address] Care Team Providers Care Rn Transitional Care Name Role Phone Murray Prajapati MD Primary Care Provider [phone] Jaja Camara WAREHOUSE SHIFT SUPERVISOR Unavailable [phone] Dyllan Paul MD Unavailable [phone] Marlin Martinez RN Unavailable Unavailable Wendy Card FRANCHISE BUSINESS CONSULTANT Unavailable Unavaila ble Encounter Details Date Type Department Care Team (Late st Contact Info) Description 05/13/2024 Orders Only External Location [address] [place] [address] Provider, External Social History Tobacco Use Types [...] [facility] S Operating Room [address] [place] [address] Dyllan Paul MD [address] [place] [address] 08/14/2025 12:25 PM EDT - 08/14/2025 1:55 PM EDT Surgery [facility] Operating Room [address] [place] [address] Dyllan Paul MD [address] [facility] [address] [place] [address] URETEROSCOPY, WITH LASER LITHOTRIPSY [[id number] (CPT )] 10/28/2025 8:00 AM EST Office Visit [place] [facility] [address] [place] [address] Pavan Aldrich MD [address] [facility] [address] [place] [address] Scheduled Procedures Name Priority Associated [...] 06/23/20252024 11:44 AM EDT Assessment Noted Time A fall risk assessment has been complete d for the patient 05/04/2023 8:15 AM EDT A Body Mass Index follow-up plan has been documented for the patient 05/04/2023 9:50 AM EDT documented as of this encounter Care Teams Rn Transitional Care Relationship Specialty Start Date End Date Murray Prajapati MD [address] [place] [address] PCP - General 03/06/23 Jaja Camara APRN [address] [place] [address] [place] [address] Referring Physician Gastroenterology 03/06/23 Dyllan Paul MD [address] [facility] [address] [place] [address] Surgeon Urology 04/29/25 Marlin Martinez, RN [facility] Registered Nurse 06/30/25 06/30/25 Wendy Card LPN VALUE-BASED TRANSFORMATION PROGRAM TCM Nurse 07/07/25 documented as of this encounter
--- OUTSIDE RECORDS SUMMARY | 2025-07-25 16:34 | XMS_ITS | Encounter Summary ---
Author Organization [facility] Address [address] [place] [address] Care Team Providers Care Tractor Trailer Truck Driver Name Role Phone Murray Prajapati MD Primary Care Provider [phone] Jaja Camara CONDENSER OPERATOR Unavailable [phone] Dyllan Paul MD Unavailable [phone] Marlin Martinez RN Unavailable Unavailable Wendy Card INFORMATION TECHNOLOGY DATA ANALYST Unavailable Unavaila ble Encounter Details Date Type Department Care Team (Late st Contact Info) Description 02/13/2025 Orders Only External Location [address] [place] [phone] Provider, External Social History Tobacco Use Types [...] [facility] Operating Room [address] [place] [address] Dyllan Paul MD [address] [facility] [address] [place] [address] 08/14/2025 12:25 PM EDT - 08/14/2025 1:55 PM EDT Surgery [facility] Operating Room [address] [place] [address] Dyllan Paul MD [address] [facility] [address] [place] [address] URETEROSCOPY, WITH LASER LITHOTRIPSY [[id number] (CPT )] 10/28/2025 8:00 AM EST Office Visit [place] [facility] [address] [place] [address] Pavan Aldrich MD [address] [facility] [address] [place] [address] Scheduled Procedures Name Priority Associated [...] documented as of this encounter Care Teams Tractor Trailer Truck Driver Relationship Specialty Start Date End Date Murray Prajapati MD [address] [place] [address] PCP - General 03/06/23 Jaja Camara APRN [address] [place] [address] [place] [address] Referring Physician Gastroenterology 03/06/23 Dyllan Paul MD [address] [facility] [address] [place] [address] Surgeon Urology 04/29/25 Marlin Martinez, RN [facility] Registered Nurse 06/30/25 06/30/25 Wendy Card LPN VALUE-BASED TRANSFORMATION PROGRAM TCM Nurse 07/07/25 documented as of this encounter
--- OUTSIDE RECORDS SUMMARY | 2025-07-25 16:34 | XMS_ITS | Encounter Summary ---
Author Organization Healthcare Address [address] [place] [address] Care Team Providers Care Graduate School Dean Name Role Phone Murray Prajapati MD Primary Care Provider [phone] Jaja Camara COPPER PLATE PRINTER Unavailable [phone] Dyllan Paul MD Unavailable [phone] Marlin Martinez RN Unavailable Unavailable Wendy Card TIME STUDY STATISTICIAN Unavailable Unavaila ble Encounter Details Date Type Department Care Team (Late st Contact Info) Description 08/02/2024 Orders Only External Location [address] [place] [phone] Provider, External Social History Tobacco Use Types [...] [facility] Operating Room [address] [place] [address] Dyllan Paul MD [address] [place] [address] 08/14/2025 12:25 PM EDT - 08/14/2025 1:55 PM EDT Surgery [facility] Operating Room [address] [place] [address] Dyllan Paul MD [address] [facility] [address] [place] [address] URETEROSCOPY, WITH LASER LITHOTRIPSY [[id number] (CPT )] 10/28/2025 8:00 AM EST Office Visit [place] [facility] [address] [place] [address] Pavan Aldrich MD [address] [facility] [address] [place] [address] Scheduled Procedures Name Priority [...] Time 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 Respiratory Rule-Out 06/15/2025 06/15/20252 025 5:19 PM EDT C. difficile Rule-Out 06/23/2025 06/23/20252024 11:44 AM EDT Assessment Noted Time A fall risk assessment has been complete d for the patient 05/04/2023 8:15 AM EDT A Body Mass Index follow-up plan has been documented for the patient 05/04/2023 9:50 AM EDT documented as of this encounter Care Teams Graduate School Dean Relationship Specialty Start Date End Date Murray Prajapati MD [address] [place] [address] PCP - General 03/06/23 Jaja Camara APRN [address] [place] [address] [place] [address] Referring Physician Gastroenterology 03/06/23 Dyllan Paul MD [address] [place] [address] Surgeon Urology 04/29/25 Marlin Martinez, RN [facility] Registered Nurse 06/30/25 06/30/25 Wendy Card LPN VALUE-BASED TRANSFORMATION PROGRAM TCM Nurse 07/07/25 documented as of this encounter
--- OUTSIDE RECORDS SUMMARY | 2025-07-25 16:34 | XMS_ITS | Encounter Summary ---
Author Organization Healthcare Address [address] [place] [address] Care Team Providers Care Bedspring Assembler Name Role Phone Murray Prajapati MD Primary Care Provider [phone] Jaja Camara DIRECTOR MARKETING ANALYTICS Unavailable [phone] Dyllan Paul MD Unavailable [phone] Marlin Martinez RN Unavailable Unavailable Wendy Card COMPUTER SYSTEMS AUDITOR Unavailable Unavaila ble Encounter Details Date Type Department Care Team (Late st Contact Info) Description 07/31/2024 Orders Only External Location [address] [place] [id number] Provider, External Social History Tobacco Use Types [...] [facility] S Operating Room [address] [place] [address] Dyllan Paul MD [address] [place] [address] 08/14/2025 12:25 PM EDT - 08/14/2025 1:55 PM EDT Surgery [facility] Operating Room [address] [place] [address] Dyllan Paul MD [address] [facility] [address] [place] [address] URETEROSCOPY, WITH LASER LITHOTRIPSY [[id number] (CPT )] 10/28/2025 8:00 AM EST Office Visit [place] [facility] [address] [place] [address] Pavan Aldrich MD [address] [facility] [address] [place] [address] Scheduled Procedures Name Priority Associated [...] documented as of this encounter Care Teams Bedspring Assembler Relationship Specialty Start Date End Date Murray Prajapati MD [address] [place] [address] PCP - General 03/06/23 Jaja Camara APRN [address] [place] [address] [place] [address] Referring Physician Gastroenterology 03/06/23 Dyllan Paul MD [address] [facility] [address] [place] [address] Surgeon Urology 04/29/25 Marlin Martinez, RN [facility] Registered Nurse 06/30/25 06/30/25 Wendy Card LPN VALUE-BASED TRANSFORMATION PROGRAM TCM Nurse 07/07/25 documented as of this encounter
--- OUTSIDE RECORDS SUMMARY | 2025-07-25 16:34 | XMS_ITS | Encounter Summary ---
Author Organization Healthcare Address [address] [place] [address] Care Team Providers Care Dry Room Operator Name Role Phone Murray Prajapati MD Primary Care Provider [phone] Jaja Camara ICEBOX WORKER Unavailable [phone] Dyllan Paul MD Unavailable [phone] Marlin Martinez RN Unavailable Unavailable Wendy Card CHIEF GAUGER Unavailable Unavaila ble Encounter Details Date Type Department Care Team (Late st Contact Info) Description 08/02/2024 Orders Only External Location [address] [place] [phone] Provider, External Social History Tobacco Use Types [...] [facility] S Operating Room [address] [place] [address] Dyllan Paul MD [address] [place] [address] 08/14/2025 12:25 PM EDT - 08/14/2025 1:55 PM EDT Surgery [facility] Operating Room [address] [place] [address] Dyllan Paul MD [address] [facility] [address] [place] [address] URETEROSCOPY, WITH LASER LITHOTRIPSY [[id number] (CPT )] 10/28/2025 8:00 AM EST Office Visit [facility] [address] [place] [address] Pavan Aldrich MD [address] [facility] [address] [place] [address] Scheduled Procedures Name Priority Associated [...] documented as of this encounter Care Teams Dry Room Operator Relationship Specialty Start Date End Date Murray Prajapati MD [address] [place] [address] PCP - General 03/06/23 Jaja Camara APRN [address] [place] [address] [place] [address] Referring Physician Gastroenterology 03/06/23 Dyllan Paul MD [address] [place] [phone] Surgeon Urology 04/29/25 Marlin Martinez, RN [facility] Registered Nurse 06/30/25 06/30/25 Wendy Card LPN VALUE-BASED TRANSFORMATION PROGRAM TCM Nurse 07/07/25 documented as of this encounter
--- OUTSIDE RECORDS SUMMARY | 2025-07-25 16:34 | XMS_ITS | Encounter Summary ---
Author Organization Healthcare Address [address] [place] [address] Care Team Providers Care Bunch Maker Hand Name Role Phone Murray Prajapati MD Primary Care Provider [phone] Jaja Camara HAM FACER Unavailable [phone] Dyllan Paul MD Unavailable [phone] Marlin Martinez RN Unavailable Unavailable Wendy Card DIRECTOR DATA PROCESSING Unavailable Unavaila ble Encounter Details Date Type Department Care Team (Late st Contact Info) Description 07/31/2024 Orders Only External Location [address] [place] [phone] Provider, External Social History Tobacco Use Types [...] PAV S Operating Room [address] [place] [address] Dyllan Paul MD [address] [place] [address] 08/14/2025 12:25 PM EDT - 08/14/2025 1:55 PM EDT Surgery [facility] S Operating Room [address] [place] [address] Dyllan Paul MD [address] [facility] [address] [place] [address] URETEROSCOPY, WITH LASER LITHOTRIPSY [[id number] (CPT )] 10/28/2025 8:00 AM EST Office Visit [place] [facility] [address] [place] [address] Pavan Aldrich MD [address] [facility] [address] [place] [address] Scheduled Procedures Name Priority Associated [...] documented as of this encounter Care Teams Bunch Maker Hand Relationship Specialty Start Date End Date Murray Prajapati MD [address] [place] [address] PCP - General 03/06/23 Jaja Camara APRN [address] [place] [address] Referring Physician Gastroenterology 03/06/23 Dyllan Paul MD [address] [place] [address] Surgeon Urology 04/29/25 Marlin Martinez, RN [facility] Registered Nurse 06/30/25 06/30/25 Wendy Card LPN VALUE-BASED TRANSFORMATION PROGRAM TCM Nurse 07/07/25 documented as of this encounter
--- OUTSIDE RECORDS SUMMARY | 2025-07-25 16:34 | XMS_ITS | Clinical Summary ---
[facility] Organization [facility] Address [address] [place] [address] Care Team Providers Care Drop Forger Name Role Phone Murray Prajapati MD Primary Care Provider [phone] Encounters Date Type Department Care Team Description 06/03/2025 Hospital Encounter [facility] OR [address] [place] [address] Jayme Pereyra Jr., MD from Last 3 Months Social History Tobacco Use Types Packs/Day Years [...] on file Sexual Orientation Not on file Plan of Treatment Health Maintenance Due Date Last Done Comments TDAP/TD VACCINES (1 - Tdap) 1974 COLOGUARD 2000 COLON CANCER SCREENING 5 YEA R SIGMOIDOSCOPY 2000 COLONOSCOPY 2000 COLORECTAL CANCER SCREENING 2000 CT COLONOGRAPHY 2000 FECAL OCCULT BLOOD TEST 2000 FIT Testing (1 year) 2000 Pneumococcal Vaccine 50+ (1 of 1 - PCV) 2005 ZOSTER VACCINE (1 of 2) 2005 Hepatitis B (1 of 3 - Risk 3 -dose series) 2015 ANNUAL PHYSICAL 05/29/2024 COVID-19 Vaccine (1 - 2023-2 5 season) 2025 INFLUENZA VACCINE 08/20/2025 HEPATITIS C SCREENING Completed 04/11/2023, 023 AAA SCREEN ONCE Completed 06/29/2025, 07/2025, 06/22/2025, Additional history exists Additional Health Concerns Infection Onset Date 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 Source: Healthcare. 04/29/2025 Insurance Member Subscriber Plan / Payer (Ef fective 2021-Present) Name:Eber Lowe Relation to Subscriber:Spouse Name:LUBNA LOWE Date of :1962 (Home) Address: [address] [place] [address] Payer ID:[id number] (NAIC) Type:Not on file Address: [facility] [address] [place] [id number] Care Teams Drop Forger Relationship Specialty Start Date End Date Murray Prajapati MD [address] [facility] [address] [place] [address] PCP - General Internal Medicine 05/29/24
--- OUTSIDE RECORDS SUMMARY | 2025-07-25 16:34 | XMS_ITS | Encounter Summary ---
Author Organization Healthcare Address [address] [place] [address] Care Team Providers Care Financial Advisor Name Role Phone Murray Prajapati MD Primary Care Provider [phone] Jaja Camara SUPERVISOR PIPELINES Unavailable [phone] Dyllan Paul MD Unavailable [phone] Marlin Martinez RN Unavailable Unavailable Wendy Card PERSONAL TRAINER Unavailable Unavaila ble Encounter Details Date Type Department Care Team (Late st Contact Info) Description 06/28/2024 Orders Only External Location [address] [place] [phone] Provider, External Social History Tobacco Use Types [...] PAV S Operating Room [address] [place] [address] Dyllan Paul MD [address] [place] [address] 08/14/2025 12:25 PM EDT - 08/14/2025 1:55 PM EDT Surgery [facility] Operating Room [address] [place] [address] Dyllan Paul MD [address] [facility] [address] [place] [address] URETEROSCOPY, WITH LASER LITHOTRIPSY [[id number] (CPT )] 10/28/2025 8:00 AM EST Office Visit [place] [facility] [address] [place] [address] Pavan Aldrich MD [address] [facility] [address] [place] [address] Scheduled Procedures Name Priority Associated [...] Radiographic Julia ging 06/28/2024 9:54 AM EDT us External Provider IMG XR PROCEDURES Final [...] documented as of this encounter Care Teams Financial Advisor Relationship Specialty Start Date End Date Murray Prajapati MD [address] [place] [address] PCP - General 03/06/23 Jaja Camara APRN [address] [place] [address] [place] [address] Referring Physician Gastroenterology 03/06/23 Dyllan Paul MD [address] [facility] [address] [place] [address] Surgeon Urology 04/29/25 Marlin Martinez, RN [facility] Registered Nurse 06/30/25 06/30/25 Wendy Crad LPN VALUE-BASED TRANSFORMATION PROGRAM TCM Nurse 07/07/25 documented as of this encounter
--- OUTSIDE RECORDS SUMMARY | 2025-07-25 16:34 | XMS_ITS | Encounter Summary ---
Author Organization Healthcare Address [address] [place] [address] Care Team Providers Care Mirror Department Supervisor Name Role Phone Murray Prajapati MD Primary Care Provider [phone] Jaja Camara INTERACTIVE MULTIMEDIA DESIGNER Unavailable [phone] Dyllan Paul MD Unavailable [phone] Marlin Martinez RN Unavailable Unavailable Wendy Card CUT ROLL MACHINE OPERATOR Unavailable Unavaila ble Encounter Details Date Type Department Care Team (Late st Contact Info) Description 02/13/2025 Orders Only External Location [address] [place] [phone] Provider, External Social History Tobacco Use Types [...] PAV S Operating Room [address] [place] [address] Dyllan Paul MD [address] [facility] [address] [place] [address] 08/14/2025 12:25 PM EDT - 08/14/2025 1:55 PM EDT Surgery [facility] S Operating Room [address] [place] [address] Dyllan Paul MD [address] [facility] [address] [place] [address] URETEROSCOPY, WITH LASER LITHOTRIPSY [[id number] (CPT )] 10/28/2025 8:00 AM EST Office Visit [place] [facility] [address], [address] [place] [address] Pavan Aldrich MD [address] [facility] [address] [place] [address] Scheduled Procedures Name Priority Associated [...] documented as of this encounter Care Teams Mirror Department Supervisor Relationship Specialty Start Date End Date Murray Prajapati MD [address] [place] [address] PCP - General 03/06/23 Jaja Camara APRN [address] [place] [address] Referring Physician Gastroenterology 03/06/23 Dyllan Paul MD [address] [facility] [address] [place] [address] Surgeon Urology 04/29/25 Marlin Martinez, RN [facility] Registered Nurse 06/30/25 06/30/25 Wendy Card LPN VALUE-BASED TRANSFORMATION PROGRAM TCM Nurse 07/07/25 documented as of this encounter
--- OUTSIDE RECORDS SUMMARY | 2025-07-25 16:34 | XMS_ITS | Encounter Summary ---
Author Organization [facility] Address [address] [id number] Care Team Providers Care Inspector Missile Name Role Phone Murray Prajapati MD Primary Care Provider [phone] Jaja Camara DEVELOPMENT PLANNER Unavailable [phone] Dyllan Paul MD Unavailable [phone] Marlin Martinez RN Unavailable Unavailable Wendy Card METALLURGY TEACHER Unavailable Unavaila ble Encounter Details Date Type Department Care Team (Late st Contact Info) Description 03/26/2025 Lab Requisition [facility] Lab [address] [place] [address] Dyllan Paul MD [address] [facility] [address] [place] [address] Elevated prostate specific antigen (PSA) Social History [...] Description 08/14/2025 12:25 PM EDT Hospital Encounter [facility] Operating Room [address] [place] [address] Dyllan Paul MD [id number] [place] [address] 08/14/2025 12:25 PM EDT - 08/14/2025 1:55 PM EDT Surgery [facility] Operating Room [address] [place] [address] Dyllan Paul MD [id number] [place] [address] URETEROSCOPY, WITH LASER LITHOTRIPSY [[id number] (CPT )] 10/28/2025 8:00 AM EST Office Visit [place] [facility] [address] [place] [address] Pavan Aldrich MD [address] [facility] [address] [place] [address] Scheduled Procedures Name Priority Associated Diagnoses Date/Ti me URETEROSCOPY, WITH LASER LITHOTRIPSY Ureteral stone 08/14/2025 12:25 PM EDT documented as of this encounter Procedures Procedure Name Priority Date/Time Associated Diagnosis Comments SURGICAL PATHOLOGY CONSULT Routine 03/26/2025 1:30 PM EDT Elevated prostate specific antigen (PSA) documented in this encounter Results * Surgical Pathology Consult (03/26/2025 1:30 PM EDT) Case Report Sugical Pathology Consult Case: [id number] Authorizing Provider: Dyllan Paul MD Collected: 03/26/2025 1330 Ordering Location: [facility] Received: 03/26/2025 1330 Pathologist: Vandana Levine MD Specimen: Prostate, [id number] 03/27/2025 10:44 AM EDT [facility] [...] is also seen. 03/27/2025 10:44 AM EDT [facility] Clinical Information R97.20 - Elevated prostate specific antigen (PSA) [ICD-10-CM] 03/27/2025 10:44 AM EDT [facility] Gross Description A. [id number] Received along with a corresponding pathology report from [facility] are 9 slides labeled outside case: [id number] collected on 01/22/2025. 03/27/2025 10:44 AM EDT [facility] Tissue Prostate / Unknown 1:30 PM EDT 03/26/2025 1:30 PM EDT Dyllan Paul MD LAB PATHOLOGY ORDERABLES Francia lezama Result [facility] [address] [place] [address] documented in this encounter Visit Diagnoses Diagnosis Elevated prostate specific antigen (PSA) Ureteral stone Calculus of ureter documented in [...] documented as of this encounter Care Teams Inspector Missile Relationship Specialty Start Date End Date Murray Prajapati MD [address] [place] [address] PCP - General 03/06/23 Jaja Camara APRN [address] [facility] [address] [place] [address] Referring Physician Gastroenterology 03/06/23 Dyllan Paul MD [address] [place] [address] Surgeon Urology 04/29/25 Marlin Martinez, RN [facility] Registered Nurse 06/30/25 06/30/25 Wendy Card LPN VALUE-BASED TRANSFORMATION PROGRAM TCM Nurse 07/07/25 documented as of this encounter
--- OUTSIDE RECORDS SUMMARY | 2025-07-25 16:35 | XMS_ITS | Clinical Summary ---
Author Organization [facility] Address [address] [place] [address] Care Team Providers Care Geothermal Production Manager Name Role Phone Murray Prajapati MD Primary Care Provider [phone] Jaja Camara BAR WELDER Unavailable [phone] Dyllan Paul MD Unavailable [phone] Wendy Card AEROTRIANGULATION SPECIALIST Unavailable Unavaila ble Allergies No known active allergies Medications atorvastatin (Lipitor) 10 MG tablet Take 1 tablet by mouth daily. Active multivitamin-ir de-unjkhtvn-vte ic acid (Centrum) chewable tablet Chew 1 tablet daily. Active Vitamin E 450 MG (1000 UT) capsule Take 1,000 Units by mouth 1 (one) time each day. Active carvedilol (Coreg) 3.125 MG tabletIndicatio ns:Esophageal varices without bleeding, unspecified esophageal varices type (CMS/HCC) Take 1 tablet by mouth 2 times a day. 60 tablet 2 03/28/20 25 Active furosemide (Lasix) 40 MG tablet Take 1 tablet by mouth 2 times a day. Active methocarbamol (Robaxin) 750 MG tablet Take 1 tablet by mouth 4 times a day as needed for muscle spasms. 120 tablet 06/25/20 25 Active tamsulosin (Flomax) 0.4 MG 24 hr capsule Take 1 capsule by mouth 1 time each day with dinner. 30 capsule 06/25/20 25 025 Active enoxaparin (Lovenox) 120 MG/0.8ML solution prefilled syringe Inject 0.8 mL under the skin every 12 hours. 180 each 06/25/20 25 025 Active acetaminophen (Tylenol) 500 MG tablet Take 1 tablet by mouth every 8 hours as needed for pain. 60 tablet 07/04/20 25 025 Active miconazole (Micotin) 2 % powder Apply to affected areas 43 g 1 07/04/20 Active naloxone (Narcan) 4 mg/0.1 mL nasal spray 1. Give 1 spray in nostril for no/slow breathing or cannot wake after opioid use 2. Call 911 3. Repeat in other nostril if symptoms continue 1 each 07/04/20 25 Active lactulose (Chronulac) 10 GM/15ML solution Take 15 mL by mouth daily. 473 mL 1 07/22/20 Active potassium chloride CR (Klor-Con) 10 MEQ ER tablet Take 1 tablet by mouth daily. Do not crush, chew, or split. 025 Discontinued(St op Taking at Discharge) lactulose (Chronulac) 10 GM/15ML solution Take 15 mL by mouth daily. 473 mL 1 06/26/20 25 025 Discontinued(Re order) acetaminophen (Tylenol) 500 MG tablet Take 2 tablets by mouth every 8 hours as needed for pain. 60 tablet 06/25/20 25 025 Discontinued ibuprofen 400 MG tablet Take 2 tablets by mouth every 6 hours as needed for moderate pain. 60 tablet 06/25/20 25 025 Discontinued(St op Taking at Discharge) fluconazole (Diflucan) 200 MG tabletIndicatio ns:Right ureteral stone,Cirrhosis of liver with ascites, unspecified hepatic cirrhosis type (CMS/HCC) Take 1 tablet by mouth daily for 9 doses. 9 tablet 07/05/20 25 025 levoFLOXacin (Levaquin) 750 MG tabletIndicatio ns:Right ureteral stone,Cirrhosis of liver with ascites, unspecified hepatic cirrhosis type (CMS/HCC) Take 1 tablet by mouth daily for 4 doses. 4 tablet 07/04/20 25 025 metroNIDAZOLE (Flagyl) 500 MG tabletIndicatio ns:Right ureteral stone,Cirrhosis of liver with ascites, unspecified hepatic cirrhosis type (CMS/HCC) Take 1 tablet by mouth every 8 hours for 14 doses. 14 tablet 08/15/ 025 oxyCODONE (Roxicodone) 5 MG immediate release tablet Take 1 tablet by mouth every 6 hours as needed for moderate pain for up to 3 days. 12 tablet 07/04/20 025 Active Problems Problem Noted Date Diagnosed Date [...] PM EDT): Complicates all aspects of care. Resolved Problems Problem Noted Date Diagnosed Date [...] tolerated PRN CXR, blood gasses and nebs Encounters Date Type Department Care Team Description 07/22/2025 8:45 AM EDT Office Visit [facility] Urology [address] [address] Dyllan Paul MD Ureteral stone (Primary Dx) 07/22/2025 6:57 AM EDT - 07/22/2025 11:59 PM EDT Hospital Encounter [facility] [address] [place] [address] Renal calculi Discharge Disposition: Home or Self Care 07/22/2025 Travel 07/18/2025 Telephone [facility] [address] [address] Dyllan Paul MD HCN Clinical Concern/Question 07/15/2025 Telephone [facility] [address] [address] Dyllan Paul MD HCN Clinical Concern/Question 07/09/2025 Telephone [facility] Multidisciplinary Oncology Clinic [address] [place] [address] Dyllan Paul MD 07/07/2025 Patient Outreach [facility] [address], [address] [place] [address] Wendy Card, AEROTRIANGULATION SPECIALIST [facility] 07/03/2025 5:25 PM EDT Anesthesia Event [facility] OPERATING ROOM [address] [place] [address] Anand Pedraza MD Carney Tinsley, Amanda S, BAR WELDER, DNP 07/03/2025 4:23 PM EDT - 07/03/2025 5:08 PM EDT Surgery [facility] [address] [place] [address] Dyllan Paul MD CYSTOSCOPY, WITH URETERAL STENT INSERTION [12472 (CPT )] 07/03/2025 Travel 06/30/2025 Patient Outreach [facility] [place] [address] Marlin Martinez RN Link 06/29/2025 Travel 06/28/2025 9:28 PM EDT - 07/04/2025 2:50 PM EDT Hospital Encounter [facility] Inpatient [address] [place] [address] Rg Coleman MD Cruz, Angelo A, MD Aziz, MD Kalyan Reyes Muhammad Fahad, MD Sweigart, Joseph R, MD Andika, Reynold, MD Febrile illness (Primary Dx); Hypotension, unspecified hypotension type; Right ureteral stone; Cirrhosis of liver with ascites, unspecified hepatic cirrhosis type (CMS/HCC) Discharge Disposition: Home or Self Care 06/28/2025 Travel 06/28/2025 Telephone [facility]rology [address] [place] [address] Eugene Ruggiero MD 06/27/2025 Telephone [facility] Mult[facility] Oncology [facility] [address] [place] [address] Dyllan Paul MD [facility] 06/24/2025 Travel 06/22/2025 Travel 06/20/2025 Travel 06/18/2025 Refill [facility] [address] [place] [address] Virginia Campa MD Esophageal varices without bleeding, unspecified esophageal varices type (CMS/HCC) 06/17/2025 Travel 06/16/2025 Travel 06/15/2025 Travel 06/14/2025 Travel 06/12/2025 2:42 PM EDT Anesthesia Event [facility] [address] [place] [address] Afshin Reece MD Zimmerman, Bayli N, 06/12/2025 12:35 PM EDT - 06/12/2025 5:30 PM EDT Surgery [facility] [address] [place] [address] Dyllan Paul MD PROSTATECTOMY, RADICAL, ROBOT-ASSISTED [70220 (CPT )] 06/12/2025 10:20 AM EDT - 06/25/2025 7:12 PM EDT Hospital Encounter [facility] [address] [place] [phone] Dyllan Paul MD Prostate CA (CMS/HCC) (Primary Dx); Alcohol use disorder; On mechanically assisted ventilation (CMS/HCC); Leukocytosis, unspecified type; Hypotension due to hypovolemia; Hypocalcemia; Hyperbilirubinemia ; Electrolyte abnormality; Severe obesity (BMI 35.0-39.9) with comorbidity (CMS/HCC); SCC (squamous cell carcinoma), leg, left; Renal calculi; Other secondary hypertension; Alcoholic cirrhosis of liver with ascites (CMS/HCC); H/O prostatectomy; Hepatic cirrhosis, unspecified hepatic cirrhosis type, unspecified whether ascites present (CMS/HCC) Discharge Disposition: Home or Self Care 06/12/2025 Travel 06/06/2025 9:30 AM EDT Pre-Admission Testing [facility]-op [facility] [address] [place] [address] 06/06/2025 Travel 06/05/2025 Travel 06/03/2025 Telephone [facility] [address] [place] [address] Lanre Franklin MD 05/20/2025 Telephone [facility]rology [address] [place] [address] Dyllan Paul MD HCN Clinical Concern/Question 04/29/2025 12:45 PM EDT Consult [place] [facility] [address] [place] [address] Dyllan Paul MD Prostate cancer (CMS/HCC) (Primary Dx) 04/29/2025 Travel from Last 3 Months Family History Medical History Relation Name Comments Heart disease Mother Anesthesia problems Neg Hx Malig Hyperthermia Neg Hx Relation Name Status Comments Mother Social History Tobacco Use Types Packs/Day Years Used Date Smoking Tobacco: Never Passive Smoke Exposure: Never Smokeless Tobacco: Never Tobacco Cessation:Counseling Given: Not Answered Alcohol Use Standard Drinks/Week Comments Yes 0 [...] the past [address] [facility], were you homeless or living in a fci (including now)? No 06/16/2025 CAGE ASSESSMENT Answer [...] drink first t rafy in the morning (EYE-MECHANICAL SERVICE SPECIALIST) to steady your nerves or to get [...] Pressure 82/55 07/22/2025 8:35 AM EDT Pulse 85 07/04/2025 12:35 PM EDT Temperature 36.6 C (97.8 F) 07/04/2025 12:35 PM EDT Respiratory Rate 15 07/04/2025 12:35 PM EDT Oxygen Saturation 92% 07/04/2025 12:35 PM EDT Inhaled Oxygen Concentration - - Weight 114 kg (251 lb 5.2 oz) 07/04/2025 6:00 AM EDT Height 175.3 cm (5' 9 ) 07/22/2025 8:35 AM EDT Body Mass Index 37.11 06/28/2025 9:29 PM EDT Plan of Treatment Upcoming Encounters Date Type Department Care Team (Latest Contact Info) Description 08/14/2025 12:25 PM EDT Hospital Encounter [facility] Operating Room [address] [place] [address] Dyllan Paul MD [id number] [place] [phone] 08/14/2025 12:25 PM EDT - 08/14/2025 1:55 PM EDT Surgery [facility] Operating Room [address] [place] [address] Dyllan Paul MD [id number] [place] [address] URETEROSCOPY, WITH LASER LITHOTRIPSY [40730 (CPT )] 10/28/2025 8:00 AM EST Office Visit [facility] [address] [place] [phone] Pavan Aldrich MD [address] [facility] [address] [place] [address] Scheduled Procedures Name Priority Associated Diagnoses Date/Ti me URETEROSCOPY, WITH LASER LITHOTRIPSY Ureteral stone 08/14/2025 12:25 PM EDT Health Maintenance Due Date Last Done Comments [facility]-Infant/Child/Adol SDOH Screenings 1955 [facility]-DTaP,Tdap,and Td Vaccines (1 - Tdap) 1974 [...] [facility]-Zoster Vaccines (1 of 2) 12/24/2016 10/29/2016 [id number] Vaccine ( - 2024- season) 2025 09/15/2021, 02/17/2021, 01/20/2021 [facility]-Influenza Vaccine (#1) 2025 08/13/2020 [facility]- SDOH Screenings 12/17/2025 [facility]-Adult SDOH Screenings 12/17/2025 06/16/2025 [facility]-Depression Screening 07/22/2026 07/22/2025, 04/20 [facility]-Hepatitis C Screening Completed 03/28/2025, [facility]-Obesity Intervention Completed 025, 04/30/2025, 04/29/2025, Additional history exists HPV Vaccines Aged Out [...] Care Plan Autogenerated Problem No [employer] Implanted Type Area Play Therapist Device Identifier Shelf Expiration Date Model / Serial / Lot Stent Ureteral Double Pigtail Pos 6fr 24cm - [id number] - [id number] Implanted:Qty: 1 on 07/03/2025 by Dyllan Paul MD at [facility] Stent Right: U[employer]ter [id number] 02/12/2027 [id number] / [id number] / Procedures Procedure Name Priority Date/Time Associated Diagnosis Comments URINE CULTURE Routine 07/22/2025 10:26 AM EDT Ureteral stone CT UROGRAM Routine 07/22/2025 7:53 AM EDT Renal calculi CBC W/O DIFFERENTIAL Routine 07/04/2025 5:26 AM EDT COMPREHENSIVE METABOLIC PANEL, PLASMA Routine 07/04/2025 5:26 AM EDT FL LESS THAN 1 HOUR (NON-REPORTABLE) Routine 07/03/2025 6:15 PM EDT CALCULI (KIDNEY STONE)ANALYSIS (SO) STAT 07/03/2025 6:12 PM EDT Right ureteral stone PB ANESTHESIA PLACEHOLDER Routine 2024 5:33 PM EDT DC AN ELECTIVE ENDOTRACHEAL AIRWAY Routine 07/03/2025 5:33 PM EDT DC OPEN BLADDER,REMV CALCULUS 07/03/2025 5:10 PM EDT Right ureteral stone Special Needs Cmax DC CYSTOSCOPY,INSERT URETERAL STENT 07/03/2025 5:10 PM EDT Right ureteral stone Special Needs Cmax PROTHROMBIN TIME(PT) / INR Routine 07/03/2025 6:21 AM EDT CBC W/O DIFFERENTIAL Routine 07/03/2025 6:21 AM EDT COMPREHENSIVE METABOLIC PANEL, PLASMA Routine 07/03/2025 6:21 AM EDT COMPREHENSIVE METABOLIC PANEL, PLASMA Routine 07/02/2025 5:01 AM EDT CBC WITH AUTO DIFFERENTIAL Routine 07/01/2025 4:59 AM EDT COMPREHENSIVE METABOLIC PANEL, PLASMA Routine 07/01/2025 4:59 AM EDT MAGNESIUM, PLASMA Routine 07/01/2025 4:59 AM EDT PHOSPHORUS, PLASMA Routine 07/01/2025 4:59 AM EDT URINALYSIS MICROSCOPIC FOR UA REFLEX Routine 06/30/2025 6:20 PM EDT URINALYSIS WITH REFLEX MICROSCOPIC Routine 06/30/2025 6:20 PM EDT LACTATE, VENOUS Routine 06/30/2025 3:11 PM EDT PHOSPHORUS, PLASMA Routine 06/30/2025 3:11 PM EDT CBC WITH AUTO DIFFERENTIAL Routine 06/30/2025 3:11 PM EDT BASIC METABOLIC PANEL, PLASMA Routine 06/30/2025 3:11 PM EDT MAGNESIUM, PLASMA Routine 06/30/2025 3:11 PM EDT VANCOMYCIN, RANDOM, PLASMA Routine 06/30/2025 12:48 PM EDT CYSTATIN C Routine 06/30/2025 6:01 AM EDT AMMONIA, PLASMA Routine 06/30/2025 6:01 AM EDT SEDIMENTATION RATE, AUTOMATED Routine 06/30/2025 6:01 AM EDT VANCOMYCIN, RANDOM, PLASMA STAT 06/29/2025 6:05 PM EDT US ABDOMEN FOCUSED REGION Routine 2024 3:37 PM EDT CREATININE, RANDOM URINE Routine 025 12:10 PM EDT UREA NITROGEN, RANDOM URINE Routine 06/29/2025 12:10 PM EDT METHICILLIN RESISTANT STAPHYLOCOCCUS AUREUS (MRSA) BY PCR Routine 06/29/2025 9:39 AM EDT WOUND CULTURE AND GRAM STAIN Routine 06/29/2025 9:39 AM EDT MULTI DRUG RESISTANCE TEST Routine 06/29/2025 9:39 AM EDT GAMMA GLUTAMYLTRANSFERASE, PLASMA Routine 06/29/2025 6:52 AM EDT IONIZED CALCIUM, WHOLE BLOOD Routine 06/29/2025 6:52 AM EDT PROCALCITONIN, PLASMA Routine 06/29/2025 6:52 AM EDT CYSTATIN C Routine 06/29/2025 6:52 AM EDT BASIC METABOLIC PANEL, PLASMA Routine 06/29/2025 6:52 AM EDT LACTATE, VENOUS Routine 06/29/2025 6:52 AM EDT SEND SELIN MESSAGE STAT 06/29/2025 2:00 AM EDT URINALYSIS MICROSCOPIC FOR UA REFLEX STAT 06/29/2025 2:00 AM EDT URINE SALCEDO PANEL STAT 06/29/2025 2:00 AM EDT URINALYSIS WITH REFLEX MICROSCOPIC STAT 06/29/2025 2:00 AM EDT URINALYSIS WITH REFLEX MICROSCOPIC AND CULTURE STAT 06/29/2025 2:00 AM EDT URINE CULTURE STAT 06/29/2025 2:00 AM EDT TROPONIN T, HIGH SENSITIVITY, 2 HOUR, PLASMA Timed 06/28/2025 11:[address] ANGIO ABDOMEN PELVIS STAT 06/28/20 11:[address] ANGIO CHEST STAT 06/28/2025 11:11 PM EDT LIPASE, PLASMA Add-On 06/28/2025 9:39 PM EDT C-REACTIVE PROTEIN, PLASMA STAT 06/28/2025 9:39 PM EDT TROPONIN T, HIGH SENSITIVITY, 0 HOUR, PLASMA, REFLEX TO 2 HOUR STAT 06/28/2025 9:39 PM EDT COMPREHENSIVE METABOLIC PANEL, PLASMA STAT 06/28/2025 9:39 PM EDT TYPE AND SCREEN STAT 06/28/2025 9:39 PM EDT APTT STAT 06/28/2025 9:39 PM EDT CBC WITH AUTO DIFFERENTIAL STAT 06/28/2025 9:39 PM EDT PROTHROMBIN TIME(PT) / INR STAT 06/28/2025 9:39 PM EDT BLOOD CULTURE (AEROBIC/ANAEROBIC SET) STAT 06/28/2025 9:39 PM EDT BLOOD CULTURE (AEROBIC/ANAEROBIC SET) STAT 06/28/2025 9:39 PM EDT POCT VENOUS BLOOD GAS GEM UNSOLICITED RESULTS Routine 06/28/2025 9:33 PM EDT POCT GLUCOSE METER UNSOLICITED RESULTS Routine 06/28/2025 9:22 PM EDT CALCULI (KIDNEY STONE)ANALYSIS (SO) Routine 06/25/2025 7:00 AM EDT CBC W/O DIFFERENTIAL Routine 06/25/2025 5:50 AM EDT COMPREHENSIVE METABOLIC PANEL, PLASMA Routine 06/25/2025 5:50 AM EDT PHOSPHORUS, PLASMA Routine 06/25/2025 5:50 AM EDT MAGNESIUM, PLASMA Routine 06/25/2025 5:50 AM EDT VAS US VENOUS DUPLEX LOWER EXTREMITY BILATERAL Routine 06/24/2025 3:02 PM EDT VAS US VENOUS DUPLEX UPPER EXTREMITY BILATERAL Routine 06/24/2025 2:18 PM EDT POTASSIUM, PLASMA Routine 06/24/2025 12:35 PM EDT PERIPHERAL BLOOD SMEAR, PATHOLOGIST INTERPRETATION Routine 06/24/2025 2:14 AM EDT CBC WITH AUTO DIFFERENTIAL Routine 06/24/2025 2:14 AM EDT COMPREHENSIVE METABOLIC PANEL, PLASMA Routine 06/24/2025 2:14 AM EDT PHOSPHORUS, PLASMA Routine 06/24/2025 2:14 AM EDT MAGNESIUM, PLASMA Routine 06/24/2025 2:14 AM EDT CLOSTRIDIODES (CLOSTRIDIUM) DIFFICILE,PCR Pending Discharge 06/23/2025 9:17 AM EDT COMPREHENSIVE METABOLIC PANEL, PLASMA Routine 06/23/2025 3:41 AM EDT PROTHROMBIN TIME(PT) / INR Routine 06/23/2025 3:41 AM EDT PHOSPHORUS, PLASMA Routine 06/23/2025 3:41 AM EDT MAGNESIUM, PLASMA Routine 06/23/2025 3:41 AM EDT CBC W/O DIFFERENTIAL Routine 06/23/2025 3:[address] ANGIO PULMONARY EMBOLISM STAT 06/22/2025 2:26 PM EDT TROPONIN T, HIGH SENSITIVITY, 2 HOUR, PLASMA Timed 06/22/2025 1:57 PM EDT LACTATE, VENOUS Routine 06/22/2025 12:33 PM EDT SEDIMENTATION RATE, AUTOMATED Routine 06/22/2025 12:33 PM EDT C-REACTIVE PROTEIN, PLASMA Routine 06/22/2025 12:33 PM EDT PROCALCITONIN, PLASMA Routine 06/22/2025 12:33 PM EDT TROPONIN T, HIGH SENSITIVITY, 0 HOUR, PLASMA, REFLEX TO 2 HOUR STAT 06/22/2025 12:33 PM EDT BLOOD CULTURE (AEROBIC/ANAEROBIC SET) Routine 06/22/2025 12:[address] ABDOMEN PELVIS W IV CONTRAST STAT 06/22/2025 8:58 AM EDT N-TERMINAL PROBNP, PLASMA Add-On 2024 1:57 AM EDT PROTHROMBIN TIME(PT) / INR Routine 06/22/2025 1:57 AM EDT COMPREHENSIVE METABOLIC PANEL, PLASMA Routine 06/22/2025 1:57 AM EDT PHOSPHORUS, PLASMA Routine 06/22/2025 1:57 AM EDT MAGNESIUM, PLASMA Routine 06/22/2025 1:57 AM EDT CBC W/O DIFFERENTIAL Routine 06/22/2025 1:57 AM EDT PROTHROMBIN TIME(PT) / INR Routine 06/21/2025 3:25 AM EDT COMPREHENSIVE METABOLIC PANEL, PLASMA Routine 06/21/2025 3:25 AM EDT PHOSPHORUS, PLASMA Routine 06/21/2025 3:25 AM EDT MAGNESIUM, PLASMA Routine 06/21/2025 3:25 AM EDT CBC W/O DIFFERENTIAL Routine 06/21/2025 3:25 AM EDT CREATININE, DRAIN FLUID Routine 06/20/20 1:43 PM EDT BLOOD GAS PANEL, VENOUS Routine 06/20/20 11:12 AM EDT CBC W/O DIFFERENTIAL Routine 06/20/2025 11:12 AM EDT FL CYSTOGRAM Timed 06/20/2025 10:01 AM EDT PROTHROMBIN TIME(PT) / INR Routine 06/20/2025 2:07 AM EDT COMPREHENSIVE METABOLIC PANEL, PLASMA Routine 06/20/2025 2:07 AM EDT PHOSPHORUS, PLASMA Routine 06/20/2025 2:07 AM EDT MAGNESIUM, PLASMA Routine 06/20/2025 2:07 AM EDT URINALYSIS MICROSCOPIC FOR UA REFLEX Routine 06/19/2025 2:16 PM EDT OSMOLALITY, URINE Routine 06/19/2025 2:16 PM EDT CREATININE, RANDOM URINE Routine 025 2:16 PM EDT SODIUM, URINE, RANDOM Routine 06/19/2025 2:16 PM EDT URINALYSIS WITH REFLEX MICROSCOPIC Routine 06/19/2025 2:16 PM EDT POCT GLUCOSE METER UNSOLICITED RESULTS Routine 06/19/2025 12:41 PM EDT POCT GLUCOSE METER UNSOLICITED RESULTS Routine 06/19/2025 9:58 AM EDT POCT GLUCOSE METER UNSOLICITED RESULTS Routine 06/19/2025 5:49 AM EDT HEPATIC FUNCTION PANEL Add-On 1:00 AM EDT CYSTATIN C Add-On 06/19/2025 1:00 AM EDT OSMOLALITY, SERUM Add-On 06/19/2025 1:00 AM EDT AMMONIA, PLASMA Routine 06/19/2025 1:00 AM EDT PHOSPHORUS, PLASMA Routine 06/19/2025 1:00 AM EDT MAGNESIUM, PLASMA Routine 06/19/2025 1:00 AM EDT BASIC METABOLIC PANEL, PLASMA Routine 06/19/2025 1:00 AM EDT CBC W/O DIFFERENTIAL Routine 06/19/2025 1:00 AM EDT POCT GLUCOSE METER UNSOLICITED RESULTS Routine 06/19/2025 12:59 AM EDT OXYGEN THERAPY Routine 06/18/2025 6:00 PM EDT POCT GLUCOSE METER UNSOLICITED RESULTS Routine 06/18/2025 5:37 PM EDT POCT GLUCOSE METER UNSOLICITED RESULTS Routine 06/18/2025 12:29 PM EDT DC CRITICAL CARE, E/M 30-74 MINUTES Routine 06/18/2025 [...] UNSOLICITED RESULTS Routine 06/18/2025 12:10 AM EDT AMMONIA, PLASMA Routine 06/17/2025 11:58 PM EDT PHOSPHORUS, PLASMA Routine 06/17/2025 11:58 PM EDT MAGNESIUM, PLASMA Routine 06/17/2025 11:58 PM EDT BASIC METABOLIC PANEL, PLASMA Routine 06/17/2025 11:58 PM EDT CBC W/O DIFFERENTIAL Routine 06/17/2025 11:58 PM EDT OXYGEN THERAPY [...] UNSOLICITED RESULTS Routine 06/17/2025 11:42 AM EDT AMMONIA, PLASMA Routine 06/17/2025 8:55 AM EDT BLOOD GAS PANEL, ARTERIAL Timed 2024 8:55 AM EDT DC CRITICAL CARE, E/M 30-74 MINUTES Routine 06/17/2025 8:36 AM EDT Prostate CA ([facility]) Alcohol use disorder On mechanically assisted ventilation (CMS/HCC) Leukocytosis, unspecified type Hyperbilirubinemi a Electrolyte abnormality Severe obesity (BMI 35.0-39.9) with comorbidity (CMS/HCC) SCC (squamous cell carcinoma), leg, left XR CHEST 1 VIEW Routine 06/17/2025 5:34 AM EDT POCT GLUCOSE METER UNSOLICITED RESULTS Routine 06/17/2025 5:28 AM EDT AMMONIA, PLASMA Routine 06/17/2025 3:30 AM EDT BLOOD GAS PANEL, ARTERIAL Timed 2024 3:30 AM EDT FREE T4, PLASMA Add-On 06/17/2025 12:24 AM EDT TSH Add-On 06/17/2025 12:24 AM EDT BLOOD GAS PANEL, ARTERIAL Timed 2024 12:24 AM EDT PHOSPHORUS, PLASMA Routine 06/17/2025 12:24 AM EDT MAGNESIUM, PLASMA Routine 06/17/2025 12:24 AM EDT BASIC METABOLIC PANEL, PLASMA Routine 06/17/2025 12:24 AM EDT CBC W/O DIFFERENTIAL Routine 06/17/2025 12:24 AM EDT POCT GLUCOSE [...] UNSOLICITED RESULTS Routine 06/16/2025 11:40 AM EDT DC CRITICAL CARE, E/M 30-74 MINUTES Routine 06/16/2025 10:30 AM EDT Prostate CA ([facility]) Alcohol use disorder On mechanically assisted ventilation ([facility]) Leukocytosis, unspecified type Hypocalcemia Electrolyte abnormality Severe obesity (BMI 35.0-39.9) with comorbidity ([facility]) SCC (squamous cell carcinoma), leg, left Renal calculi Other secondary hypertension ECHO, ADULT TRANSTHORACIC COMPLETE Routine 06/16/2025 8:10 AM EDT POCT GLUCOSE METER UNSOLICITED RESULTS Routine 06/16/2025 8:09 AM EDT VENTILATOR - ADULT Routine 06/16/2025 8:00 AM EDT END TIDAL CO2 MONITORING Routine 8:00 AM EDT HEMOGLOBIN A1C Add-On 06/16/2025 4:24 AM EDT TRIGLYCERIDES, PLASMA Timed 06/16/2025 4:24 AM EDT PHOSPHORUS, PLASMA Routine 06/16/2025 4:24 AM EDT MAGNESIUM, PLASMA Routine 06/16/2025 4:24 AM EDT BASIC METABOLIC PANEL, PLASMA Routine 06/16/2025 4:24 AM EDT CBC W/O DIFFERENTIAL Routine 06/16/2025 4:24 AM EDT XR CHEST 1 VIEW Timed 06/16/2025 4:23 AM EDT VENTILATOR - ADULT Routine 06/15/2025 8:00 PM EDT END TIDAL CO2 MONITORING Routine 025 8:00 PM EDT STREPTOCOCCUS PNEUMONIAE AND LEGIONELLA URINARY ANTIGEN Routine 06/15/2025 2:53 PM EDT MYCOPLASMA PNEUMONIAE BY PCR (SO) STAT 06/15/2025 2:49 PM EDT NASOPHARYNGEAL RESPIRATORY PANEL STAT 06/15/2025 2:47 PM EDT MYCOPLASMA PNEUMONIAE ANTIBODIES, IGG & IGM (SO) STAT 06/15/2025 2:42 PM EDT BLOOD GAS PANEL, ARTERIAL Timed 2024 11:39 AM EDT VANCOMYCIN, RANDOM, PLASMA Routine 06/15/2025 11:38 AM EDT DC CRITICAL CARE, E/M 30-74 MINUTES Routine 06/15/2025 9:09 AM EDT Prostate CA ([facility]) VENTILATOR - ADULT Routine 06/15/2025 8:00 AM EDT END TIDAL CO2 MONITORING Routine 025 8:00 AM EDT BLOOD GAS PANEL, ARTERIAL Timed 2024 6:20 AM EDT XR CHEST 1 VIEW Timed 06/15/2025 6:12 AM EDT SBT - SPONTANEOUS BREATHING TRIAL Routine 06/15/2025 6:00 AM EDT BLOOD GAS PANEL, ARTERIAL Timed 2024 12:25 AM EDT PHOSPHORUS, PLASMA Routine 06/15/2025 12:25 AM EDT MAGNESIUM, PLASMA Routine 06/15/2025 12:25 AM EDT BASIC METABOLIC PANEL, PLASMA Routine 06/15/2025 12:25 AM EDT CBC W/O DIFFERENTIAL Routine 06/15/2025 12:25 AM EDT VENTILATOR - ADULT Routine 06/14/2025 8:00 PM EDT END TIDAL CO2 MONITORING Routine 025 8:00 PM EDT BLOOD GAS PANEL, ARTERIAL Timed 2024 6:07 PM EDT VENTILATOR - ADULT Routine 06/14/2025 3:26 PM EDT VENTILATOR - ADULT Routine 06/14/2025 3:26 PM EDT BLOOD GAS PANEL, ARTERIAL Timed 2024 12:09 PM EDT DC CRITICAL CARE, E/M 30-74 MINUTES Routine 06/14/2025 9:53 AM EDT Prostate CA (CMS/HCC) URINALYSIS MICROSCOPIC FOR UA REFLEX Routine 06/14/2025 8:21 AM EDT URINALYSIS WITH REFLEX MICROSCOPIC Routine 06/14/2025 8:21 AM EDT XR ABDOMEN 1 VIEW STAT 06/14/2025 8:18 AM EDT RESPIRATORY CULTURE AND GRAM STAIN Routine 06/14/2025 8:18 AM EDT PROCALCITONIN, PLASMA Routine [...] PROBNP, PLASMA Add-On 2024 12:41 AM EDT BLOOD GAS PANEL, ARTERIAL Timed 2024 12:41 AM EDT PHOSPHORUS, PLASMA Routine 06/14/2025 12:41 AM EDT MAGNESIUM, PLASMA Routine 06/14/2025 12:41 AM EDT BASIC METABOLIC PANEL, PLASMA Routine 06/14/2025 12:41 AM EDT CBC W/O DIFFERENTIAL Routine 06/14/2025 12:41 AM EDT END TIDAL [...] PANEL, ARTERIAL Timed 2024 11:30 AM EDT DC CRITICAL CARE, ADDL 30 MIN Routine 06/13/2025 10:48 AM EDT Prostate CA ([facility]) Alcohol use disorder On mechanically assisted ventilation (CMS/HCC) Leukocytosis, unspecified type Hypotension due to hypovolemia Hypocalcemia Hyperbilirubinemi a Electrolyte abnormality END TIDAL CO2 MONITORING Routine 8:00 AM EDT SBT - SPONTANEOUS BREATHING TRIAL Routine 06/13/2025 6:00 AM EDT BLOOD GAS PANEL, ARTERIAL Routine 2024 4:53 AM EDT IONIZED CALCIUM, WHOLE BLOOD Routine 06/13/2025 4:53 AM EDT INSERT PERIPHERAL IV STAT 06/13/2025 4:14 AM EDT CBC W/O DIFFERENTIAL Routine 06/13/2025 12:26 AM EDT RICHAR AURIS SURVEILLANCE BY PCR Routine 06/12/2025 10:48 PM EDT MULTI DRUG RESISTANCE TEST Routine 06/12/2025 10:48 PM EDT BLOOD GAS PANEL, ARTERIAL Routine 2024 10:47 PM EDT DC CRITICAL CARE, ADDL 30 MIN Routine 06/12/2025 10:22 PM EDT Prostate CA (CMS/HCC) DC CRITICAL CARE, ADDL 30 MIN Routine 06/12/2025 10:22 PM EDT Prostate CA (CMS/HCC) DC CRITICAL CARE, ADDL 30 MIN Routine 06/12/2025 10:22 PM EDT Prostate CA (CMS/HCC) POCT GLUCOSE METER UNSOLICITED RESULTS Routine 06/12/2025 10:19 PM EDT XR CHEST 1 VIEW STAT 06/12/2025 9:54 PM EDT APTT Routine 06/12/2025 9:27 PM EDT PROTHROMBIN TIME(PT) / INR Routine 06/12/2025 9:27 PM EDT PHOSPHORUS, PLASMA Routine 06/12/2025 9:27 PM EDT MAGNESIUM, PLASMA Routine 06/12/2025 9:27 PM EDT COMPREHENSIVE METABOLIC PANEL, PLASMA Routine 06/12/2025 9:27 PM EDT CBC W/O DIFFERENTIAL Routine 06/12/2025 9:27 PM EDT PB POINT OF CARE IMAGING PLACEHOLDER Routine 06/12/2025 9:25 PM EDT PB ANESTHESIA NON-TIMED PROCEDURE PLACEHOLDER Routine 06/12/2025 9:25 PM EDT POCT ARTERIAL BLOOD GAS GEM UNSOLICITED RESULTS Routine 06/12/2025 9:19 PM EDT SBT - SPONTANEOUS BREATHING TRIAL Routine 06/12/2025 9:07 PM EDT END TIDAL CO2 MONITORING Routine 025 9:07 PM EDT END TIDAL CO2 MONITORING Routine 025 9:07 PM EDT END TIDAL CO2 MONITORING Routine 025 9:07 PM EDT VENTILATOR - ADULT Routine 06/12/2025 9:07 PM EDT VENTILATOR - ADULT Routine 06/12/2025 9:07 PM EDT POCT VENOUS BLOOD GAS GEM UNSOLICITED RESULTS Routine 06/12/2025 7:35 PM EDT TRANSFUSE RED BLOOD CELLS Routine 2024 7:15 PM EDT TRANSFUSE RED BLOOD CELLS Routine 2024 7:02 PM EDT ANESTHESIA ULTRASOUND GUIDED Routine 06/12/2025 6:54 PM EDT PREPARE RBC STAT 06/12/2025 6:49 PM EDT SURGICAL PATHOLOGY EXAM Routine 06/12/20 6:07 PM EDT Prostate CA (CMS/HCC) ANESTHESIA PERIPHERAL IV PLACEMENT Routine 06/12/2025 3:17 PM EDT PB ANESTHESIA PLACEHOLDER Routine 2024 2:50 PM EDT DC AN ELECTIVE ENDOTRACHEAL AIRWAY Routine 06/12/2025 2:50 PM EDT DC LAP,PROSTATECTOMY,RADICAL ,W/NERVE SPARE,INCL ROBOTIC 06/12/2025 2:26 PM EDT Prostate CA (CMS/HCC) POCT GLUCOSE METER UNSOLICITED RESULTS Routine 06/12/2025 1:21 PM EDT TYPE AND SCREEN Routine 06/12/2025 1:14 PM EDT PHOSPHATIDYLETHANOL (PETH), WHOLE BLOOD, QUANTITATIVE (SO) Routine 06/12/2025 1:14 PM EDT HEPATITIS C ANTIBODY W/REFLEX TO HCV QUANT PCR Routine 03/28/2025 6:34 AM EDT End-stage liver disease (CMS/HCC) from Last 3 Months or Most Recently Relevant to Health Maintenance Results * Urine Culture - Clinic Collect (07/22/2025 10:26 AM EDT) Only the most recent of2 resultswithin the time period is included. Culture <10,000 CFU/mL Mixed urogenital, fecal, or skin kelsi present. 07/23/2025 8:34 AM EDT [facility] Urine Urine specimen obtained by clean catch procedure / Unknown Non-blood Collection / Unknown 07/22/2025 10:26 AM EDT 07/22/2025 10:49 AM EDT us Dyllan Paul MD LAB MICROBIOLOGY - GENERAL OR DERABLES Final Result [facility] [address] [place] [address] * CT Urogram (07/22/2025 7:53 AM EDT) [...] following split bolus administration of IV contrast, [id number], 150 mL. Reformatted images in the coronal [...] in the right mid ureter (series 3 [id number]). Punctate bilateral nonobstructing renal calculi are also [...] IMG CT PROCEDURES Final Resul t * (ABNORMAL) CBC W/O Differential (07/04/2025 5:26 AM EDT) Only the most recent of15 resultswithin the time period is included. WBC Count 10.13 3.70 - 10.30 10*3/uL LAB HEMATOLOGY METHOD 07/04/2025 5:48 AM EDT [facility] RBC Count 3.46(L) 4.60 - 6.10 10*6/uL LAB HEMATOLOGY METHOD 07/04/2025 5:48 AM EDT [facility] HGB 11.3(L) 13.7 - 17.5 g/dL LAB HEMATOLOGY METHOD 07/04/2025 5:48 AM EDT [facility] HCT 33.0(L) 40.0 - 51.0 % LAB HEMATOLOGY METHOD 07/04/2025 5:48 AM EDT [facility] Platelet Count 114(L) 155 - 369 10*3/uL LAB HEMATOLOGY METHOD 07/04/2025 5:48 AM EDT [facility] MCV 95 79 - 98 fL LAB HEMATOLOGY METHOD 07/04/2025 5:48 AM EDT [facility] MCH 32.7(H) 26.0 - 32.0 pg LAB HEMATOLOGY METHOD 07/04/2025 5:48 AM EDT [facility] MCHC 34.2 30.7 - 35.5 g/dL LAB HEMATOLOGY METHOD 07/04/2025 5:48 AM EDT [facility] RDW 15.7(H) 11.5 - 14.5 % LAB HEMATOLOGY METHOD 07/04/2025 5:48 AM EDT [facility] MPV 11.0 8.8 - 12.5 fL LAB HEMATOLOGY METHOD 07/04/2025 5:48 AM EDT [facility] nRBC 0.0 <=0.0 per 100 WBCs LAB HEMATOLOGY METHOD 07/04/2025 5:48 AM EDT [facility] Blood Venous blood specimen / Unknown Venipuncture / Unknown 07/04/2025 5:26 AM EDT 07/04/2025 5:37 AM EDT us Quentin Anderson MD LAB BLOOD ORDERABLES Final Result [facility] [address] [place] [address] * (ABNORMAL) Comprehensive Metabolic Panel, Plasma (07/04/2025 5:26 AM EDT) Only the most recent of13 resultswithin the time period is included. Glucose, Plasma 147(H) 74 - 99 mg/dL 07/04/2025 6:07 AM EDT [facility] BUN, Plasma 41(H) 8 - 23 mg/dL 07/04/2025 6:07 AM EDT [facility] Creatinine, Plasma 1.83(H) 0.70 - 1.20 mg/dL 07/04/2025 6:07 AM EDT [facility] BUN/Creatinine Ratio 22 07/04/2025 6:07 AM EDT [facility] Sodium, Plasma 127(L) 136 - 145 mmol/L 07/04/2025 6:07 AM EDT [facility] Potassium, Plasma 4.3 3.6 - 4.9 mmol/L 07/04/2025 6:07 AM EDT [facility] Chloride, Plasma 98 97 - 107 mmol/L 07/04/2025 6:07 AM EDT [facility] CO2, Plasma 18(L) 22 - 29 mmol/L 07/04/2025 6:07 AM EDT [facility] Anion Gap 11 6 - 16 mmol/L 07/04/2025 6:07 AM EDT [facility] Total Calcium, Plasma 7.6(L) 8.9 - 10.2 mg/dL 07/04/2025 6:07 AM EDT [facility] Total Protein 4.8(L) 6.3 - 7.9 g/dL 07/04/2025 6:07 AM EDT [facility] Albumin, Plasma 2.3(L) 3.5 - 5.2 g/dL 07/04/2025 6:07 AM EDT [facility] AST, Plasma 41 10 - 50 U/L 07/04/2025 6:07 AM EDT [facility] ALT, Plasma 24 10 - 50 U/L 07/04/2025 6:07 AM EDT [facility] Alkaline Phosphatase, Plasma 133(H) 40 - 115 U/L 07/04/2025 6:07 AM EDT [facility] Total Bilirubin, Plasma 1.2(H) 0.2 - 1.1 mg/dL 07/04/2025 6:07 AM EDT [facility] eGFRcr 39.2 mL/min/1.7 3m*2 07/04/2025 6:07 AM EDT [facility] Comment:Reported eGFRcr in m L/min/1.73m2 is based the CKD-EPI 2020 equation that does not use a race coefficient. Blood Venous blood specimen / Unknown Venipuncture / Unknown 07/04/2025 5:26 AM EDT 07/04/2025 5:35 AM EDT us Quentin Anderson MD LAB BLOOD ORDERABLES Final Result Performing Organization Address City/State/[facility] Co de Phone Number [facility] [address] [place] [address] * [place] Less than 1 Hour Intraoperative (07/03/2025 6:15 PM EDT) Narrative IMAGING - 07/03/2025 6:17 PM EDT Images were obtained for surgical purposes. See Dyllan Paul's surgical note in the patient's chart for the findings. Dyllan Paul MD IMG FLUOROSCOPY PROCEDURES Fi nal Result IMAGING * Calculi (Kidney Stone) Analysis (07/03/2025 6:12 PM EDT) Only the most recent of2 resultswithin the time period is included. Calculi Mass 807 mg 07/08/2025 6:16 PM EDT [facility] Calculi Description See Note 07/08/2025 6:16 PM EDT [facility] Calculi Composition See Note 07/08/2025 6:16 PM EDT [facility] Calculus Urinary bladder structure / Unknown 07/03/2025 6:12 PM EDT 07/03/2025 6:35 PM EDT Comment:Pre-op diagnosis: Right ureteral stone [N20.1] Narrative [facility] - 07/08/2025 6:16 PM EDT Specimen consists [...] composition determined by FTIR analysis. Performed By: [facility] [address] [place] [address] Rest Room Matron: Sotero Banuelos MD, PhD CLIA Number: [id number] us Dyllan Paul MD LAB REF LAB BLOOD AND FLUID O RD Final Result [facility] ([facility] [address] [place] [address] * DC AN ELECTIVE ENDOTRACHEAL AIRWAY, PB ANESTHESIA PLACEHOLDER (07/03/2025 5:33 PM EDT) Narrative Lary Bloom CRNA, LUDMILA - 07/03/2025 5:33 PM EDT Lary Bloom CRNA, DNP 07/03/2025 5:47 PM Airway Date/Time: 07/03/2025 5:33 PM Reason: elective Airway not difficult General Information and Staff Patient location during procedure: OR [facility]: Lary Bloom CRNA, DNP Performed: [facility] Patient Condition Indications for airway management: anesthesia [...] Pedraza MD ANESTHESIA ORDERABLES Final Re sult * (ABNORMAL) Prothrombin Time/INR (07/03/2025 6:21 AM EDT) Only the most recent of7 resultswithin the time period is included. Prothrombin Time 21.7(H) 12.0 - 14.3 sec LAB COAGULATION METHOD 07/03/2025 6:47 AM EDT [facility] INR 1.9(H) 0.9 - 1.1 LAB COAGULATION METHOD 07/03/2025 6:47 AM EDT [facility] Blood Venous blood specimen / Unknown Venipuncture / Unknown 07/03/2025 6:21 AM EDT 07/03/2025 6:30 AM EDT Narrative [facility] - 07/03/2025 6:47 AM EDT OPTIMAL INR RANGES FOR PATIENT ON ORAL ANTICOAGULANT THERAPY Prevention of venous thromboembolism INR 2.0 to 3.0 In patients with heart disease: Atrial fibrillation INR 2.0 to 3.0 Valvular heart disease INR 2.0 to 3.0 Tissue heart valves INR 2.0 to 3.0 Mechanical prosthetic valves INR 2.5 to 3.5 Prevention of recurrent OK INR 2.5 to 3.5 us Quentin Anderson MD LAB BLOOD ORDERABLES Final Result [facility] [address] [place] [address] * (ABNORMAL) CBC and Differential (07/01/2025 4:59 AM EDT) Only the most recent of4 resultswithin the time period is included. WBC Count 14.93(H) 3.70 - 10.30 10*3/uL LAB HEMATOLOGY METHOD 07/01/2025 5:17 AM EDT [facility] RBC Count 3.42(L) 4.60 - 6.10 10*6/uL LAB HEMATOLOGY METHOD 07/01/2025 5:17 AM EDT [facility] HGB 11.1(L) 13.7 - 17.5 g/dL LAB HEMATOLOGY METHOD 07/01/2025 5:17 AM EDT [facility] HCT 32.6(L) 40.0 - 51.0 % LAB HEMATOLOGY METHOD 07/01/2025 5:17 AM EDT [facility] Platelet Count 112(L) 155 - 369 10*3/uL LAB HEMATOLOGY METHOD 07/01/2025 5:17 AM EDT [facility] MCV 95 79 - 98 fL LAB HEMATOLOGY METHOD 07/01/2025 5:17 AM EDT [facility] MCH 32.5(H) 26.0 - 32.0 pg LAB HEMATOLOGY METHOD 07/01/2025 5:17 AM EDT [facility] MCHC 34.0 30.7 - 35.5 g/dL LAB HEMATOLOGY METHOD 07/01/2025 5:17 AM EDT [facility] RDW 15.8(H) 11.5 - 14.5 % LAB HEMATOLOGY METHOD 07/01/2025 5:17 AM EDT [facility] MPV 11.2 8.8 - 12.5 fL LAB HEMATOLOGY METHOD 07/01/2025 5:17 AM EDT [facility] nRBC 0.1(H) <=0.0 per 100 WBCs LAB HEMATOLOGY METHOD 07/01/2025 5:17 AM EDT [facility] Differential Type Automated LAB HEMATOLOGY METHOD 07/01/2025 5:17 AM EDT [facility] Neutrophils % 54 % LAB HEMATOLOGY METHOD 07/01/2025 5:17 AM EDT [facility] Lymphocytes % 30 % LAB HEMATOLOGY METHOD 07/01/2025 5:17 AM EDT [facility] Monocytes % 9 % LAB HEMATOLOGY METHOD 07/01/2025 5:17 AM EDT [facility] Eosinophils % 5 % LAB HEMATOLOGY METHOD 07/01/2025 5:17 AM EDT [facility] Basophils % 1 % LAB HEMATOLOGY METHOD 07/01/2025 5:17 AM EDT [facility] Immature Granulocytes % 1 % LAB HEMATOLOGY METHOD 07/01/2025 5:17 AM EDT [facility] Neutrophils Absolute 8.14(H) 1.60 - 6.10 10*3/uL LAB HEMATOLOGY METHOD 07/01/2025 5:17 AM EDT [facility] Lymphocytes Absolute 4.47(H) 1.20 - 3.90 10*3/uL LAB HEMATOLOGY METHOD 07/01/2025 5:17 AM EDT [facility] Monocytes Absolute 1.40(H) 0.30 - 0.90 10*3/uL LAB HEMATOLOGY METHOD 07/01/2025 5:17 AM EDT [facility] Eosinophils Absolute 0.74(H) 0.00 - 0.50 10*3/uL LAB HEMATOLOGY METHOD 07/01/2025 5:17 AM EDT [facility] Basophils Absolute 0.08 0.00 - 0.10 10*3/uL LAB HEMATOLOGY METHOD 07/01/2025 5:17 AM EDT [facility] Immature Granulocytes Absolute 0.10(H) 0.00 - 0.06 10*3/uL LAB HEMATOLOGY METHOD 07/01/2025 5:17 AM EDT [facility] Blood Venous blood specimen / Unknown Venipuncture / Unknown 07/01/2025 4:59 AM EDT 07/01/2025 5:06 AM EDT [facility] - 07/01/2025 5:17 AM EDT Therapeutic decision making should be based on absolute values, rather than percentages. us Lizzie Biggs MD LAB BLOOD ORDERABLES Fi nal Result [facility] [address] [place] [address] * Phosphorus, Plasma (07/01/2025 4:59 AM EDT) Only the most recent of15 resultswithin the time period is included. Phosphorus, Plasma 3.0 2.5 - 4.5 mg/dL 07/01/2025 5:[address] [facility] Blood Venous blood specimen / Unknown Venipuncture / Unknown 07/01/2025 4:59 AM EDT 07/01/2025 5:06 AM EDT Lizzie Biggs MD LAB BLOOD ORDERABLES Fi nal Result Performing Organization Address City/[facility] [place] [address] * (ABNORMAL) Magnesium, Plasma (07/01/2025 4:59 AM EDT) Only the most recent of16 resultswithin the time period is included. Magnesium, Plasma 2.7(H) 1.9 - 2.4 mg/dL 07/01/2025 5:[address] [facility] Blood Venous blood specimen / Unknown Venipuncture / Unknown 07/01/2025 4:59 AM EDT 07/01/2025 5:06 AM EDT us Lizzie Biggs MD LAB BLOOD ORDERABLES Fi nal Result Performing Organization Address City/[facility] Co de Phone Number [address] [address] * Urinalysis Microscopic Examination (06/30/2025 6:20 PM EDT) Only the most recent of4 resultswithin the time period is included. Urine Urine specimen obtained by clean catch procedure / Unknown Non-blood Collection / Unknown 06/30/2025 6:20 PM EDT 06/30/2025 6:52 PM EDT us Lizzie Biggs MD LAB URINE ORDERABLES Fi nal Result Performing Organization Address City/[facility]/ZIP Co de Phone Number [address] [place] [address] * (ABNORMAL) Urinalysis with reflex microscopic (Culture NOT Included) (06/30/2025 6:20 PM EDT) Only the most recent of4 resultswithin the time period is included. Color, Urine Dark Yellow LAB URINALYSIS - AUTOMATED METHOD 06/30/2025 7:28 PM EDT [facility] Clarity, Urine Cloudy LAB URINALYSIS - AUTOMATED METHOD 06/30/2025 7:28 PM EDT [facility] Spec [place], Urine >1.030(H) 1.005 - 1.030 LAB URINALYSIS - AUTOMATED METHOD 06/30/2025 7:28 PM EDT [facility] pH, Urine 6.0 5.0 - 8.0 LAB URINALYSIS - AUTOMATED METHOD 06/30/2025 7:28 PM EDT [facility] Protein, Urine 30(A) Negative mg/dL LAB URINALYSIS - AUTOMATED METHOD 06/30/2025 7:28 PM EDT [facility] Glucose, Urine Negative Negative mg/dL LAB URINALYSIS - AUTOMATED METHOD 06/30/2025 7:28 PM EDT [facility] Ketones, Urine Trace(A) Negative mg/dL LAB URINALYSIS - AUTOMATED METHOD 06/30/2025 7:28 PM EDT [facility] Blood, Urine Moderate(A) Negative LAB URINALYSIS - AUTOMATED METHOD 06/30/2025 7:28 PM EDT [facility] Bilirubin, Urine Small(A) Negative LAB URINALYSIS - AUTOMATED METHOD 06/30/2025 7:28 PM EDT [facility] Urobilinogen, Urine 1.0 0.2 to 1.0 mg/dL LAB URINALYSIS - AUTOMATED METHOD 06/30/2025 7:28 PM EDT [facility] Leukocytes, Urine Moderate(A) Negative LAB URINALYSIS - AUTOMATED METHOD 06/30/2025 7:28 PM EDT [facility] Nitrite, Urine Negative Negative LAB URINALYSIS - AUTOMATED METHOD 06/30/2025 7:28 PM EDT [facility] RBC, Urine >50(A) 0 to 3 /HPF LAB URINALYSIS - AUTOMATED METHOD 06/30/2025 7:28 PM EDT [facility] WBC, Urine 21 - 50(A) 0 to 5 /HPF LAB URINALYSIS - AUTOMATED METHOD 06/30/2025 7:28 PM EDT [facility] Squamous Epithelial Cells 0 - 2 0 to 5 /HPF LAB URINALYSIS - AUTOMATED METHOD 06/30/2025 7:28 PM EDT [facility] Hyaline Casts 6 - 10(A) 0 to 5 /LPF LAB URINALYSIS - AUTOMATED METHOD 06/30/2025 7:28 PM EDT [facility] Bacteria, Urine Present Negative LAB URINALYSIS - AUTOMATED METHOD 06/30/2025 7:28 PM EDT [facility] Renal Tubular Cells Present Absent 06/30/2025 7:28 PM EDT [facility] Yeast (Budding and/or Pseudohyphae) Present(A) Absent 06/30/2025 7:28 PM EDT [facility] Urine Urine specimen obtained by clean catch procedure / Unknown Non-blood Collection / Unknown 06/30/2025 6:20 PM EDT 06/30/2025 6:52 PM EDT Narrative [facility] - 06/30/2025 7:28 PM EDT Performed by manual method Lizzie Biggs MD LAB URINE ORDERABLES Fi nal Result [facility] [address] [place] [address] * Lactate, venous (06/30/2025 3:11 PM EDT) Only the most recent of3 resultswithin the time period is included. Lactate, Venous, Whole Blood 1.4 0.5 - 2.2 mmol/L LAB HEMATOLOGY METHOD 06/30/2025 3:25 PM EDT [facility] Blood Venous blood specimen / Unknown Venipuncture / Unknown 06/30/2025 3:11 PM EDT 06/30/2025 3:23 PM EDT us Lizzie Biggs MD LAB BLOOD ORDERABLES Fi nal Result [facility] [address] [place] [address] * (ABNORMAL) Basic Metabolic Panel, Plasma (06/30/2025 3:11 PM EDT) Only the most recent of8 resultswithin the time period is included. Glucose, Plasma 101(H) 74 - 99 mg/dL 06/30/2025 4:40 PM EDT [facility] BUN, Plasma 25(H) 8 - 23 mg/dL 06/30/2025 4:40 PM EDT [facility] Creatinine, Plasma 1.08 0.70 - 1.20 mg/dL 06/30/2025 4:40 PM EDT [facility] BUN/Creatinine Ratio 23 06/30/2025 4:40 PM EDT [facility] Sodium, Plasma 130(L) 136 - 145 mmol/L 06/30/2025 4:40 PM EDT [facility] Potassium, Plasma 3.2(L) 3.6 - 4.9 mmol/L 06/30/2025 4:40 PM EDT [facility] Chloride, Plasma 111(H) 97 - 107 mmol/L 06/30/2025 4:40 PM EDT [facility] CO2, Plasma 18(L) 22 - 29 mmol/L 06/30/2025 4:40 PM EDT [facility] Anion Gap 1(L) 6 - 16 mmol/L 06/30/2025 4:40 PM EDT [facility] Total Calcium, Plasma 6.3(L) 8.9 - 10.2 mg/dL 06/30/2025 4:40 PM EDT [facility] eGFRcr 73.8 mL/min/1.7 3m*2 06/30/2025 4:40 PM EDT [facility] Comment:Reported eGFRcr in m L/min/1.73m2 is based the CKD-EPI 2020 equation that does not use a race coefficient. Blood Venous blood specimen / Unknown Venipuncture / Unknown 06/30/2025 3:11 PM EDT 06/30/2025 3:34 PM EDT Lizzie Biggs MD LAB BLOOD ORDERABLES Fi nal Result Performing Organization Address City/[facility]/ZIP Co de Phone Number [facility] [address] [place] [address] * Vancomycin, random (06/30/2025 12:48 PM EDT) Only the most recent of3 resultswithin the time period is included. Vancomycin, Random, Plasma 13.3 ug/mL 06/30/2025 3:07 PM EDT [facility] Blood Venous blood specimen / Unknown Venipuncture / Unknown 06/30/2025 12:48 PM EDT 06/30/2025 12:58 PM EDT Jennifer Mcgrath MD LAB BLOOD ORDERABLES Final Resu lt Performing Organization Address [facility] [place] [address] * (ABNORMAL) Cystatin C (06/30/2025 6:01 AM EDT) Only the most recent of3 resultswithin the time period is included. Cystatin C 1.58(H) 0.61 - 0.95 mg/L 06/30/2025 6:40 AM EDT [facility] Blood Venous blood specimen / Unknown Venipuncture / Unknown 06/30/2025 6:01 AM EDT 06/30/2025 6:10 AM EDT Lizzie Biggs MD LAB BLOOD ORDERABLES Fi nal Result Performing Organization Address City/[facility]/ZIP Co de Phone Number [facility] [address] [place] [address] * Sedimentation Rate, Automated (06/30/2025 6:01 AM EDT) Only the most recent of2 resultswithin the time period is included. Sedimentation Rate 17 <20 mm/hr 2024 6:18 AM EDT [facility] Blood Venous blood specimen / Unknown Venipuncture / Unknown 06/30/2025 6:01 AM EDT 06/30/2025 6:11 AM EDT us Homerocrow Gutierrez APRN, LUDMILA LAB BLOOD ORDERAB LES Final Result Performing Organization Address [facility]/ZIP Co de Phone Number [facility] [address] [place] [address] * (ABNORMAL) Ammonia, Plasma (06/30/2025 6:01 AM EDT) Only the most recent of6 resultswithin the time period is included. Ammonia 64(H) 11 - 51 umol/L 06/30/2025 6:38 AM EDT [facility] Comment:Improper specimen marquez ndling may falsely increase results. Blood Venous blood specimen / Unknown Venipuncture / Unknown 06/30/2025 6:01 AM EDT 06/30/2025 6:08 AM EDT us Homero Gutierrez APRN, [facility] LAB BLOOD ORDERAB LES Final Result Performing Organization Address [facility] Co de Phone Number [facility] [address] [place] [address] * US Abdomen Focused Region Liver, Pancreas, [...] MD IMG US PROCEDURES Final Result * Urea nitrogen, urine (06/29/2025 12:10 PM EDT) Urea Nitrogen, Urine 865 mg/dL 06/29/2025 1:10 PM EDT [facility] Urine Urine specimen obtained by clean catch procedure / Unknown Non-blood Collection / Unknown 06/29/2025 12:10 PM EDT 06/29/2025 12:37 PM EDT us Homeroemilee Gutierrez APRN, DNP LAB URINE ORDERAB LES Final Result Performing Organization Address City/[facility] de Phone Number [facility] [address] [place] [address] * Creatinine, urine, random (06/29/2025 12:10 PM EDT) Only the most recent of2 resultswithin the time period is included. Creatinine, Urine 182 mg/dL 06/29/2025 1:10 PM EDT [facility] Urine Urine specimen obtained by clean catch procedure / Unknown Non-blood Collection / Unknown 06/29/2025 12:10 PM EDT 06/29/2025 12:37 PM EDT us Homero Moiz Gutierrez BAR WELDER, DNP LAB URINE ORDERAB LES Final Result Performing Organization Address City/State/[facility] Co de Phone Number [facility] [address] [place] [address] * Multi Drug Resistance Test (06/29/2025 9:39 AM EDT) Only the most recent of2 resultswithin the time period is included. Culture No growth at day 1 06/30/2025 4:[address] [facility] Swab (Nares and Cari Rectal) Non-blood Collection / Unknown 06/29/2025 9:39 AM EDT 06/29/2025 10:19 AM EDT Narrative [facility] - 06/30/2025 4:16 PM EDT This test was developed and its performance characteristics determined by the [facility]. Although the media is FDA-approved, it is not FDA-approved for all specimen types submitted. The FDA has determined that such clearance or approval is not necessary. This test is used for surveillance purposes. It should not be regarded as investigational or for research. The [facility] Clinical Microbiology Laboratory is certified under the Clinical Laboratory Improvement Amendments of 1988 (CLIA-88) as qualified to perform high complexity clinical laboratory testing. Homero Gutierrez APRN, DNP LAB MICROBIOLOGY - GENERAL ORDERABLES Final Result Performing Organization Address [facility] Co de Phone Number [facility] [address] [place] [address] * Methicillin Resistant Staphylococcus aureus (MRSA) by PCR (06/29/2025 9:39 AM EDT) Methicillin Resistant Staphylococcus aureus (MRSA) by PCR Not Detected Not Detected 06/29/2025 12:[address] [facility] Swab Both anterior nares / Unknown Non-blood Collection / Unknown 06/29/2025 9:39 AM EDT 06/29/2025 10:18 AM EDT Narrative [facility] - 06/29/2025 12:04 PM EDT [...] GENERAL ORDERABLES Final Result Performing Organization Address City/[facility] Co de Phone Number [facility] [address] [place] [address] * (ABNORMAL) Wound Culture and Gram Stain (06/29/2025 9:39 AM EDT) CULTURE READING WOUND Light Growth 07/02/2025 12:29 PM EDT [facility] CULTURE READING WOUND Staphylococcus epidermidis(A) 07/02/2025 12:29 PM EDT [facility] Comment: This isolate has been identified using the FDA Approved [employer] System The organism value for this result has been updated. These results have been appended to the previously preliminary verified report. Edited result: Previously reported as Gram positive cocci on 07/01/2025 at 0744 EDT. Gram Stain Result Numerous Polymorphonuclear leukocytes(A) 07/02/2025 12:29 PM EDT [facility] Gram Stain Result Rare Gram negative rods(A) 07/02/2025 12:29 PM EDT [facility] Swab Skin structure / Unknown Non-blood Collection / Unknown 06/29/2025 9:39 AM EDT 06/29/2025 2:57 PM EDT Homero Gutierrez APRN, DNP LAB MICROBIOLOGY - GENERAL ORDERABLES Final Result Performing Organization Address City/[facility] Co de Phone Number [facility] [address] [place] [address] * (ABNORMAL) Ionized calcium, whole blood (06/29/2025 6:52 AM EDT) Only the most recent of3 resultswithin the time period is included. Ionized Calcium, Whole Blood 4.1(L) 4.6 - 5.1 mg/dL LAB HEMATOLOGY METHOD 06/29/2025 7:12 AM EDT [facility] Blood Venous blood specimen / Unknown Venipuncture / Unknown 06/29/2025 6:52 AM EDT 06/29/2025 6:55 AM EDT us Homeroemilee Gutierrez APRN, LUDMILA LAB BLOOD ORDERAB LES Final Result Performing Organization Address [facility] Co de Phone Number [facility] [address] [place] [address] * (ABNORMAL) Procalcitonin (06/29/2025 6:52 AM EDT) Only the most recent of3 resultswithin the time period is included. Procalcitonin, Plasma 2.47(H) <0.09 ng/mL 06/29/2025 7:27 AM EDT [facility] Blood Venous blood specimen / Unknown Venipuncture / Unknown 06/29/2025 6:52 AM EDT 06/29/2025 6:56 AM EDT Narrative [facility] - 06/29/2025 7:27 AM EDT [...] predict 28 day mortality risk. Please consult www.eujpdm-hsx-gfjmzhthcq.com for more information. Test performed at [facility], Core Laboratory. us Homero Gutierrez APRN, DNP LAB BLOOD ORDERAB LES Final Result Performing Organization Address [facility]/ZIP Co de Phone Number [facility] [address] [place] [address] * (ABNORMAL) GGT (06/29/2025 6:52 AM EDT) GGT, Plasma 116(H) 8 - 61 U/L 06/29/2025 8:35 AM EDT [facility] Blood Venous blood specimen / Unknown Venipuncture / Unknown 06/29/2025 6:52 AM EDT 06/29/2025 6:56 AM EDT us Homero Gutierrez APRN, DNP LAB BLOOD ORDERAB LES Final Result Performing Organization Address City/[facility] Co de Phone Number [facility] [address] [place] [address] * SEND SELIN MESSAGE (06/29/2025 2:00 AM EDT) Urine Urine specimen obtained by clean catch procedure / Unknown Non-blood Collection / Unknown 06/29/2025 2:00 AM EDT 06/29/2025 2:22 AM EDT us Rg Coleman MD LAB URINE ORDERABLES Final Res ult Performing Organization Address [facility] de Phone Number [facility] [address] [place] [address] * Urine Salcedo Panel (06/29/2025 2:00 AM EDT) Extra Sent for Culture 06/29/2025 4:[address] [facility] Urine Urine specimen obtained by clean catch procedure / Unknown Non-blood Collection / Unknown 06/29/2025 2:00 AM EDT 06/29/2025 2:22 AM EDT Rg Coleman MD LAB URINE ORDERABLES Final Res ult Performing Organization Address [facility] de Phone Number [facility] [address] [place] [address] * (ABNORMAL) Troponin T, High Sensitivity, 2 Hour, Plasma (06/28/2025 11:57 PM EDT) Only the most recent of2 resultswithin the time period is included. Troponin T, High Sensitivity, 2 Hour 22(H) <19 ng/L 06/29/2025 12:22 AM EDT [facility] Troponin Delta 2 <10 ng/L 06/29/2025 12:22 AM EDT [facility] Troponin Delta Interpretation Not Significant 06/29/2025 12:22 AM EDT [facility] Comment:Not Significant. No acute change in troponin observed between the baseline and 2 hour samples. Blood Venous blood specimen / Unknown Venipuncture / Unknown 06/28/2025 11:57 PM EDT 06/29/2025 12:03 AM EDT us Rg Coleman MD LAB BLOOD ORDERABLES Final Res ult [facility] [address] [place] [address] * CT Angio Abdomen Pelvis (06/28/2025 11:11 [...] Total DLP (Dose-Length Product): 2949.46 mGy.cm (accession [id number]), 2949.46 mGy.cm (accession [id number]). Please note: The reported value represents the [...] colon during the examination. Interval removal of Martinez catheter. Small amount of gas in the [...] Total DLP (Dose-Length Product): 2949.46 mGy.cm (accession [id number]),2949.46 mGy.cm (accession [id number]). Please note: The reported valuerepresents the total [...] colon during the examination. Interval removal of Martinez catheter. Small amount of gas in thenondependent [...] ligament, and paraesophagealvarices. 4. Interval removal of Martinez catheter, with retained 10 mm bladdercalculus. There [...] Total DLP (Dose-Length Product): 2949.46 mGy.cm (accession [id number]), 2949.46 mGy.cm (accession [id number]). Please note: The reported value represents the [...] colon during the examination. Interval removal of Martinez catheter. Small amount of gas in the [...] Total DLP (Dose-Length Product): 2949.46 mGy.cm (accession [id number]),2949.46 mGy.cm (accession [id number]). Please note: The reported valuerepresents the total [...] colon during the examination. Interval removal of Martinez catheter. Small amount of gas in thenondependent [...] ligament, and paraesophagealvarices. 4. Interval removal of Martinez catheter, with retained 10 mm bladdercalculus. There [...] on 06/28/2025 11:53 PM Rg Coleman MD IM CT PROCEDURES Final Result * (ABNORMAL) Troponin now and 120 min (06/28/2025 9:39 PM EDT) Only the most recent of2 resultswithin the time period is included. Troponin T, High Sensitivity, 0 Hour 24(H) <19 ng/L 06/28/2025 10:15 PM EDT [facility] Blood Venous blood specimen / Unknown Venipuncture / Unknown 06/28/2025 9:39 PM EDT 06/28/2025 9:47 PM EDT Rg Coleman MD LAB BLOOD ORDERABLES Final Res ult Performing Organization Address [facility] Co de Phone Number [facility] [address] [place] [address] * Blood Culture (Aerobic/Anaerobet Set) (06/28/2025 9:39 PM EDT) Only the most recent of4 resultswithin the time period is included. Culture No growth at day 5 07/03/2025 11:02 PM EDT [facility] Blood Structure of left hand / Unknown Venipuncture / Unknown 06/28/2025 9:39 PM EDT 06/28/2025 10:04 PM EDT Rg Coleman MD LAB MICROBIOLOGY - GENERAL ORD ERABLES Final Result Performing Organization Address [facility] [place] [address] * (ABNORMAL) APTT (06/28/2025 9:39 PM EDT) Only the most recent of2 resultswithin the time period is included. aPTT 70(H) 25 - 35 sec 06/28/2025 10:[address] [facility] Blood Venous blood specimen / Unknown Venipuncture / Unknown 06/28/2025 9:39 PM EDT 06/28/2025 9:47 PM EDT us Rg Coleman MD LAB BLOOD ORDERABLES Final Res ult Performing Organization Address [facility] Co de Phone Number [facility] [address] [place] [address] * Type and screen (06/28/2025 9:39 PM EDT) Only the most recent of2 resultswithin the time period is included. ABO/Rh O Positive 06/28/2025 9:39 PM EDT [facility] Antibody Screen Negative 06/28/2025 9:39 PM EDT [facility] Specimen Expiration 07/01/2025 23:59 06/28/2025 9:39 PM EDT [facility] Blood Venous blood specimen / Unknown Venipuncture / Unknown 06/28/2025 9:39 PM EDT 06/28/2025 9:47 PM EDT Rg Coleman MD LAB BLOOD BANK TEST ORDERABLES Final Result Performing Organization Address [facility] de Phone Number BLOOD BANK [address] [place] [address], * (ABNORMAL) C-Reactive protein (06/28/2025 9:39 PM EDT) Only the most recent of2 resultswithin the time period is included. CRP, Plasma 63.6(H) <=8.0 mg/L 06/28/2025 10:15 PM EDT [facility] Blood Venous blood specimen / Unknown Venipuncture / Unknown 06/28/2025 9:39 PM EDT 06/28/2025 9:47 PM EDT Narrative [facility] - 06/28/2025 10:15 PM EDT This CRP test is appropriate for assessment of infection, systemic inflammation and/or tissue injury. To assess cardiovascular disease risk order high sensitivity CRP (CRPH). Rg Coleman MD LAB BLOOD ORDERABLES Final Res ult Performing Organization Address [facility] Co de Phone Number [facility] [address] [place] [address] * (ABNORMAL) Lipase (06/28/2025 9:39 PM EDT) Lipase, Plasma 91(H) 19 - 63 U/L 06/29/2025 7:03 AM EDT [facility] Blood Venous blood specimen / Unknown Venipuncture / Unknown 06/28/2025 9:39 PM EDT 06/28/2025 9:47 PM EDT Homero Gutierrez APRN, LUDMILA LAB BLOOD ORDERAB LES Final Result [facility] [address] [place] [address] * (ABNORMAL) POCT venous blood gas gem (06/28/2025 9:33 PM EDT) Only the most recent of2 resultswithin the time period is included. pH, Venous 7.50(H) 7.32 - 7.43 06/28/2025 9:35 PM EDT [facility] pCO2, Venous 28(L) 40 - 55 mm Hg 06/28/2025 9:35 PM EDT [facility] pO2, Venous 66(H) 25 - 40 mm Hg 06/28/2025 9:35 PM EDT [facility] SO2, Venous 96(H) 65 - 80 % 06/28/2025 9:35 PM EDT [facility] Base Excess/Deficit, Venous -0.3 -2 - 3 mmol/L 06/28/2025 9:35 PM EDT [facility] HCO3, Venous 21.8(L) 22 - 26 mmol/L 06/28/2025 9:35 PM EDT [facility] Hemoglobin, Venous 12.8(L) 13.7 - 17.5 g/dL 06/28/2025 9:35 PM EDT [facility] Hematocrit, Venous 38.0(L) 40.0 - 51.0 % 06/28/2025 9:35 PM EDT [facility] Sodium, Venous 129(L) 136 - 145 mmol/L 06/28/2025 9:35 PM EDT [facility] Potassium, Venous 3.6 3.6 - 4.9 mmol/L 06/28/2025 9:35 PM EDT [facility] Comment:Hemolyzed, result ma y be falsely increased. POCT Chloride, Venous 98 97 - 107 mmol/L 06/28/2025 9:35 PM EDT [facility] Glucose, Venous 114(H) 74 - 99 mg/dL 06/28/2025 9:35 PM EDT [facility] Ionized Calcium, Venous 4.2(L) 4.6 - 5.1 mg/dL 06/28/2025 9:35 PM EDT [facility] Lactate, Venous 2.5(H) 0.5 - 2.2 mmol/L 06/28/2025 9:35 PM EDT [facility] Body Temperature 37.0 Celsius 06/28/2025 9:35 PM EDT [facility] pH, Temp Corrected, Venous 7.50(H) 7.32 - 7.43 06/28/2025 9:35 PM EDT [facility] pCO2, Temp Corrected, Venous 28(L) 40 - 55 mm Hg 06/28/2025 9:35 PM EDT [facility] pO2, Temp Corrected, Venous 66(H) 25 - 40 mm Hg 06/28/2025 9:35 PM EDT [facility] Physical Science Professor ID SHIRA Herzog 06/28/2025 9:35 PM EDT [facility] Blood, Venous Whole blood specimen / Unknown 06/28/2025 9:33 PM EDT 06/28/2025 9:35 PM EDT us Generic Provider Poct LAB POINT OF CARE TEST DOCKED DEVICE UNSOLICITED RESULTS Final Result Performing Organization Address City/State/[facility] Co de Phone Number [facility] [address] [place] [address] * (ABNORMAL) POCT glucose meter (06/28/2025 9:22 PM EDT) Only the most recent of18 resultswithin the time period is included. POCT Glucose 119(H) 74 - 99 mg/dL [...] Comment 06/28/2025 9:23 PM EDT [facility] Physical Science Professor ID Abdi Major 06/28/2025 9:23 PM EDT [facility] Device ID [id number] 06/28/2025 9:23 PM EDT [facility] Specimen Type POC Capillary 06/28/2025 9:23 PM EDT [facility] Blood Capillary blood specimen / Unknown 06/28/2025 9:22 PM EDT 06/28/2025 9:23 PM EDT us Generic Provider Poct LAB POINT OF CARE TEST DOCKED DEVICE UNSOLICITED RESULTS Final Result [facility] [address] [place] [address] * VAS US Venous Duplex Lower Extremity [...] 06/24/2025 3:08 PM Final report signed by Scout Gilbert MD on 06/24/2025 4:56 PM Narrative [...] augmentable and nonpulsatile flow signal. Procedure Note Scout Gilbert MD - 06/24/2025 CLINICAL INDICATION: SOB/PE [...] 06/24/2025 3:08 PM Final report signed by Scout Gilbert MD on 06/24/2025 4:56 PM us [...] 06/24/2025 3:17 PM Final report signed by Scout Gilbert MD on 06/24/2025 4:57 PM Narrative [...] phasic and augmentable flow signal. Procedure Note Scout Gilbert MD - 06/24/2025 CLINICAL INDICATION: SOB [...] 06/24/2025 3:17 PM Final report signed by Scout Gilbert MD on 06/24/2025 4:57 PM us Dyllan Paul MD CV VASCULAR PROCEDURES Final Result * Potassium level repeated 2 hours after the total replacement is completed (06/24/2025 12:35 PM EDT) Pathologist [facility] Potassium, Plasma 3.6 3.6 - 4.9 mmol/L 06/24/2025 1:21 PM EDT [facility] Blood Venous blood specimen / Unknown Venipuncture / Unknown 06/24/2025 12:35 PM EDT 06/24/2025 12:58 PM EDT us Camden Hilario MD LAB BLOOD ORDERABLES Final Result [facility] [address] [place] [address] * Peripheral blood smear, pathologist interpretation (06/24/2025 2:14 AM EDT) [facility] Clinical Diagnosis, Peripheral Smear Leukocytosis, recent surgery (prostatectomy for prostate cancer), history of cirrhosis LAB HEMATOLOGY METHOD 06/24/2025 3:21 PM EDT [facility] Interpretation , Peripheral Smear Moderate leukocytosis with neutrophilia, left shift and toxic granulations. Few atypical small lymphocytes with mature condensed chromatin. Mild anemia with anisocytosis. Mild thrombocytopeni a. See comment 06/24/2025 3:21 PM EDT [facility] Pathologist Signature, Peripheral Smear 06/24/2025 3:21 PM EDT [facility] Comment:Reviewed by: Sue Stapleton MD Blood Venous blood specimen / Unknown Venipuncture / Unknown 06/24/2025 2:14 AM EDT 06/24/2025 2:19 AM EDT Narrative [facility] - 06/24/2025 3:21 PM EDT The lymphocyte morphology is concerning for chronic lymphoproliferative disorder. A flow cytometry immunophenotyping is suggested, if clinically indicated. Dyllan Paul MD LAB PATHOLOGY ORDERABLES Francia l Result Performing Organization Address [facility] Co de Phone Number [facility] [address] [place] [address] * Clostridiodes (Clostridium) difficile PCR (06/23/2025 9:17 AM EDT) C difficile PCR toxin B gene DNA Result Not Detected Not Detected 06/23/2025 11:[address] [facility] Stool Rectum structure / Unknown Non-blood Collection / Unknown 06/23/2025 9:17 AM EDT 06/23/2025 10:27 AM EDT Narrative [facility] - 06/23/2025 11:44 AM EDT [...] OR DERABLES Final Result Performing Organization Address [facility] [place] [address] * CT Angio Pulmonary Embolism (06/22/2025 2:26 [...] Kalyani Kam DO by me via secure [employer] chatat 3:28 PM on 06/22/2025. Drafted by Shannan Chong MD on 06/22/2025 3:12 PM Final report signed by Shannan Chong MD on 06/22/2025 3:28 PM Dyllan Paul MD IMG CT PROCEDURES Final Resul t * CT Abdomen Pelvis w IV Contrast [...] Scott Arriaga MD on 06/22/2025 11:13 AM Result Mirella Paul MD IMG CT PROCEDURES Final Resul t * N-Terminal Probnp (06/22/2025 1:57 AM EDT) Only the most recent of2 resultswithin the time period is included. N-Terminal, PROBNP, Plasma 74 0 - 899 pg/mL 06/22/2025 12:26 PM EDT [facility] Blood Venous blood specimen / Unknown Venipuncture / Unknown 06/22/2025 1:57 AM EDT 06/22/2025 2:09 AM EDT Result Mirella Paul MD LAB BLOOD ORDERABLES Final Re sult Performing Organization Address [facility]/ZIP Co de Phone Number [facility] [address] [place] [address] * Creatinine, Drain Fluid (06/20/2025 1:43 PM EDT) Creatinine, Fluid 1.35 mg/dL 06/20/2025 3:10 PM EDT [facility] Fluid Drainage fluid specimen / Unknown 06/20/2025 1:43 PM EDT 06/20/2025 2:15 PM EDT Narrative [facility] - 06/20/2025 3:10 PM EDT Reference Values: No established reference interval. Results should be interpreted in comparison to the concentration in blood and in conjunction with the clinical context. This test was developed and its performance characteristics determined by [facility]. The U.S. Food and Drug [...] FLUIDS AND STOOLS OR DERABLES Final Result [facility] [address] [place] [address] * (ABNORMAL) Blood gas panel, venous (06/20/2025 11:12 AM EDT) pH, Venous 7.44(H) 7.32 - 7.43 LAB HEMATOLOGY METHOD 06/20/2025 11:23 AM EDT [facility] pCO2, Venous 38(L) 40 - 55 mmHg LAB HEMATOLOGY METHOD 06/20/2025 11:23 AM EDT [facility] pO2, Venous 60(H) 25 - 40 mmHg LAB HEMATOLOGY METHOD 06/20/2025 11:23 AM EDT [facility] SO2, Measured, Venous 88(H) 65 - 80 % LAB HEMATOLOGY METHOD 06/20/2025 11:23 AM EDT [facility] Base Excess, Venous 1.5 -2.0 - 3.0 mmol/L LAB HEMATOLOGY METHOD 06/20/2025 11:23 AM EDT [facility] Bicarbonate, Calculated, Venous 26 22 - 26 mmol/L LAB HEMATOLOGY METHOD 06/20/2025 11:23 AM EDT [facility] Hematocrit, Whole Blood 32.5(L) 40.0 - 51.0 % LAB HEMATOLOGY METHOD 06/20/2025 11:23 AM EDT [facility] Sodium, Whole Blood 135(L) 136 - 145 mmol/L LAB HEMATOLOGY METHOD 06/20/2025 11:23 AM EDT [facility] Potassium, Whole Blood 2.8(L) 3.6 - 4.9 mmol/L LAB HEMATOLOGY METHOD 06/20/2025 11:23 AM EDT [facility] Chloride, Whole Blood 101 97 - 107 mmol/L LAB HEMATOLOGY METHOD 06/20/2025 11:23 AM EDT [facility] Glucose, Whole Blood 164(H) 74 - 99 mg/dL LAB HEMATOLOGY METHOD 06/20/2025 11:23 AM EDT [facility] Lactate, Venous, Whole Blood 2.5(H) 0.5 - 2.2 mmol/L LAB HEMATOLOGY METHOD 06/20/2025 11:23 AM EDT [facility] Ionized Calcium, Whole Blood 4.4(L) 4.6 - 5.1 mg/dL LAB HEMATOLOGY METHOD 06/20/2025 11:23 AM EDT [facility] Blood Venous blood specimen / Unknown Venipuncture / Unknown 06/20/2025 11:12 AM EDT 06/20/2025 11:20 AM EDT us Dyllan Paul MD LAB BLOOD ORDERABLES Final Re sult [facility] [address] [place] [address] * [place] Cystogram (06/20/2025 10:01 AM EDT) [...] radiograph from June 14, 2025. FINDINGS: On meat stuffer images, there are 3 rounded calcifications overlying [...] 2025. Abdominal radiograph from 2024. FINDINGS: On meat stuffer images, there are 3 rounded calcifications overlying [...] PROCEDURES Ed ited Result - Final * Sodium, urine, random (06/19/2025 2:16 PM EDT) Sodium, Urine <20 mmol/L 06/19/2025 3:06 PM EDT [facility] Urine Urine specimen obtained by clean catch procedure / Unknown Non-blood Collection / Unknown 06/19/2025 2:16 PM EDT 06/19/2025 2:22 PM EDT us Dyllan Paul MD LAB URINE ORDERABLES Final Re sult Performing Organization Address City/[facility]/ZIP Co de Phone Number [facility] [address] [place] [address] * Osmolality, urine (06/19/2025 2:16 PM EDT) Osmolality, Urine 645 50 - 1,200 mOsm/kg 06/19/2025 3:14 PM EDT [facility] Urine Urine specimen obtained by clean catch procedure / Unknown Non-blood Collection / Unknown 06/19/2025 2:16 PM EDT 06/19/2025 2:31 PM EDT us Dyllan Paul MD LAB URINE ORDERABLES Final Re sult Performing Organization Address City/[facility]/ZIP Co de Phone Number [facility] [address] [place] [address] * (ABNORMAL) Osmolality (06/19/2025 1:00 AM EDT) Osmolality, Serum 311(H) 280 - 301 mOsm/Kg 06/19/2025 1:05 PM EDT [facility] Blood Venous blood specimen / Unknown Venipuncture / Unknown 06/19/2025 1:00 AM EDT 06/19/2025 1:04 AM EDT Result Mirella Paul MD LAB BLOOD ORDERABLES Final Re sult Performing Organization Address [facility]/ZIP Co de Phone Number [facility] [address] [place] [address] * (ABNORMAL) Hepatic function panel (06/19/2025 1:00 AM EDT) Conjugated Bilirubin, Plasma 1.1(H) <=0.3 mg/dL 06/19/2025 6:48 PM EDT [facility] Comment:Hemolyzed, result ma y be falsely decreased. Alkaline Phosphatase, Plasma 179(H) 40 - 115 U/L 06/19/2025 6:48 PM EDT [facility] Total Bilirubin, Plasma 2.5(H) 0.2 - 1.1 mg/dL 06/19/2025 6:48 PM EDT [facility] Albumin, Plasma 2.7(L) 3.5 - 5.2 g/dL 06/19/2025 6:48 PM EDT [facility] Total Protein 5.1(L) 6.3 - 7.9 g/dL 06/19/2025 6:48 PM EDT [facility] ALT, Plasma 33 10 - 50 U/L 06/19/2025 6:48 PM EDT [facility] AST, Plasma 59(H) 10 - 50 U/L 06/19/2025 6:48 PM EDT [facility] Comment:Hemolyzed, result ma y be falsely increased. Blood Venous blood specimen / Unknown Venipuncture / Unknown 06/19/2025 1:00 AM EDT 06/19/2025 1:04 AM EDT us Anna Armas MD LAB BLOOD ORDERABLES Final Resul t Performing Organization Address [facility]/ZIP Co de Phone Number [facility] [address] [place] [address] * DC CRITICAL CARE, E/M 30-74 MINUTES (06/18/2025 9:49 [...] CLINIC/BEDSIDE ORDERABLE S Final Result * (ABNORMAL) Blood gas panel, arterial (06/18/2025 5:47 AM EDT) Only the most recent of20 resultswithin the time period is included. pH, Arterial 7.48(H) 7.31 - 7.42 LAB HEMATOLOGY METHOD 06/18/2025 5:59 AM EDT [facility] pCO2, Arterial 36 32 - 45 mmHg LAB HEMATOLOGY METHOD 06/18/2025 5:59 AM EDT [facility] pO2, Arterial 63(L) >70 mmHg LAB HEMATOLOGY METHOD 06/18/2025 5:59 AM EDT [facility] SO2, Measured, Arterial 94 94 - 98 % LAB HEMATOLOGY METHOD 06/18/2025 5:59 AM EDT [facility] LAB Base Excess, Arterial 3.3(H) -2.0 - 3.0 mmol/L LAB HEMATOLOGY METHOD 06/18/2025 5:59 AM EDT [facility] Bicarbonate, Calculated, Arterial 27(H) 22 - 26 mmol/L LAB HEMATOLOGY METHOD 06/18/2025 5:59 AM EDT [facility] Hematocrit, Whole Blood 37.9(L) 40.0 - 51.0 % LAB HEMATOLOGY METHOD 06/18/2025 5:59 AM EDT [facility] Sodium, Whole Blood 153(H) 136 - 145 mmol/L LAB HEMATOLOGY METHOD 06/18/2025 5:59 AM EDT [facility] Potassium, Whole Blood 4.3 3.6 - 4.9 mmol/L LAB HEMATOLOGY METHOD 06/18/2025 5:59 AM EDT [facility] Chloride, Whole Blood 119(H) 97 - 107 mmol/L LAB HEMATOLOGY METHOD 06/18/2025 5:59 AM EDT [facility] Glucose, Whole Blood 138(H) 74 - 99 mg/dL LAB HEMATOLOGY METHOD 06/18/2025 5:59 AM EDT [facility] Ionized Calcium, Whole Blood 5.1 4.6 - 5.1 mg/dL LAB HEMATOLOGY METHOD 06/18/2025 5:59 AM EDT [facility] Lactate, Arterial, Whole Blood 1.6 0.5 - 1.6 mmol/L LAB HEMATOLOGY METHOD 06/18/2025 5:59 AM EDT [facility] Blood Arterial blood specimen / Unknown Arterial Puncture / Unknown 06/18/2025 5:47 AM EDT 06/18/2025 5:57 AM EDT us Michelle Iniguez APRN LAB BLOOD ORDERABLES Final R esult [facility] [address] [place] [address] * CT Head wo IV Contrast (06/17/2025 [...] on 06/17/2025 12:54 PM us Lillian RODRIGUEZ IMBelinda CT PROCEDURES Final Res ult * DC CRITICAL CARE, E/M 30-74 MINUTES (06/17/2025 8:36 [...] Chest 1 View (06/17/2025 5:34 AM EDT) Only the most recent of5 resultswithin the time period is included. Anatomical Region Laterality Modality Chest Digital Radiogra [...] IMG XR PROCEDURES Fi nal Result * Thyroid Stimulating Hormone, Plasma (06/17/2025 12:24 AM EDT) [facility] Thyroid Stimulating Hormone, Plasma 1.19 0.40 - 4.20 uIU/mL 06/17/2025 8:59 AM EDT [facility] Blood Venous blood specimen / Unknown Venipuncture / Unknown 06/17/2025 12:24 AM EDT 06/17/2025 12:36 AM EDT us Lillian RODRIGUEZ LAB BLOOD ORDERABLES Final Result [facility] [address] [place] [address] * (ABNORMAL) Free T4, Plasma (06/17/2025 12:24 AM EDT) Pathologist [facility] Free T4, Plasma 0.7(L) 0.8 - 1.7 ng/dL 06/17/2025 8:59 AM EDT [facility] Blood Venous blood specimen / Unknown Venipuncture / Unknown 06/17/2025 12:24 AM EDT 06/17/2025 12:36 AM EDT us Lillian RODRIGUEZ LAB BLOOD ORDERABLES Final Result [facility] [address] [place] [address] * DC CRITICAL CARE, E/M 30-74 MINUTES (06/16/2025 10:30 [...] mean PAP 34 mmHg CINTIA ISCV PA DC(ACCEL) 35.0 mmHg CINTIA ISCV PA acc slope [...] is no recent study available for direct [id number] comparison. Left Ventricle Based on the linear [...] is no recent study available for direct [id number]-pk-[id number] comparison. us Raymond Katz APRN CV ECHO PROCEDURES Final Resu lt * Triglycerides (06/16/2025 4:24 AM EDT) Triglycerides, Plasma 103 <150 mg/dL 06/16/2025 5:02 AM EDT [facility] Comment: Triglyceride Reference Range (age >17 years): Desirable: <150 mg/dL Borderline high: 150 to 199 mg/dL High: 200 to 499 mg/dL Very high: >499 mg/dL Increased risk of pancreatitis: >1000 mg/dL Fasting greater than or equal to 12 hours? No 06/16/2025 5:02 AM EDT [facility] Blood Venous blood specimen / Unknown Venipuncture / Unknown 06/16/2025 4:24 AM EDT 06/16/2025 4:34 AM EDT Raymond Katz APRN LAB BLOOD ORDERABLES Final Re sult [facility] [address] [place] [address] * Hemoglobin A1c (06/16/2025 4:24 AM EDT) Hemoglobin A1c 5.4 <5.7 % 06/16/2025 12:01 PM EDT [facility] Blood Venous blood specimen / Unknown Venipuncture / Unknown 06/16/2025 4:24 AM EDT 06/16/2025 4:31 AM EDT Narrative [facility] - 06/16/2025 12:01 PM EDT HA1C Interpretive Data: Diagnosis of Diabetes: Diabetic > or = 6.5% Pre-diabetic 5.7 to 6.4% Non-diabetic < or = 5.6% Glycemic Targets for Type I and Type II Diabetics: Non- Adults <7.0% Adults <6.0% Children and Adolescents <7.5% Source: [place] [employer]. Standards of medical care in diabetes,2017. Diabetes Care.2017:40 (suppl 1):S1-S135. us Lillian RODRIGUEZ LAB BLOOD ORDERABLES Final Result [facility] [address] [place] [address] * Streptococcus pneumoniae and Legionella Urinary Antigen (06/15/2025 2:53 PM EDT) Legionella pneumophila serogroup 1 Antigen Result (Urine) Negative Negative 06/16/2025 6:33 AM EDT [facility] Streptococcus pneumoniae Antigen Result (Urine) Negative Negative 06/16/2025 6:33 AM EDT [facility] Urine Urine specimen obtained by clean catch procedure / Unknown Non-blood Collection / Unknown 06/15/2025 2:53 PM EDT 06/15/2025 3:17 PM EDT us Corry Doss APRN, [facility] LAB MICROBIOLOGY - G ENERAL ORDERABLES Final Result [facility] [address] [place] [address] * Mycoplasma Pneumoniae DNA By PCR (06/15/2025 2:49 PM EDT) Mycoplasma pneumoniae Source aspirate 06/23/2025 9:22 PM EDT [facility] ([facility]) Mycoplasma pneumoniae by PCR Not Detected 06/23/2025 9:22 PM EDT [facility] ([facility]) Aspirate Non-blood Collection / Unknown 06/15/2025 2:49 PM EDT 06/15/2025 3:34 PM EDT Narrative [facility] ([facility]) - 06/23/2025 9:22 PM EDT NOT DETECTED - A negative result does not rule out the presence of PCR inhibitors in the patient specimen or assay specific nucleic acid in concentrations below the level of detection by the assay. INTERPRETIVE INFORMATION: Mycoplasma pneumoniae by PCR This test was developed and its performance characteristics determined by [facility]. It has not been cleared or approved by the US Food and Drug Administration. This test was performed in a CLIA certified laboratory and is intended for clinical purposes. Performed By: [facility] [address] [place] [address] Rest Room Matron: Sotero Banuelos MD, PhD CLIA Number: [id number] Corry Doss APRN, [facility] LAB REF LAB BLOOD AN D FLUID ORD Final Result [facility] ([facility]) [address] [place] [id number] * Nasopharyngeal Respiratory Panel (06/15/2025 2:47 PM EDT) Nasopharyngeal Respiratory PCR Interpretation Not Detected for all analytes Not Detected for all analytes 06/15/2025 5:19 PM EDT [facility] Swab Nasopharyngeal structure / Unknown Non-blood Collection / Unknown 06/15/2025 2:47 PM EDT 06/15/2025 3:18 PM EDT Narrative [facility] - 06/15/2025 5:19 PM EDT [...] Respiratory PCR Panel is performed using the [employer] instrument. This test is FDA approved for use with Nasopharyngeal swabs only. This test is used for clinical purposes. It should not be regarded as investigational or for research. The [facility] Clinical Microbiology Laboratory is certified under the Clinical Laboratory Improvement Amendments of 1988 (CLIA-88) as qualified to perform high complexity clinical laboratory testing. Corry Doss APRN, [place] LAB MICROBIOLOGY - G ENERAL ORDERABLES Final Result [facility] [address] [place] [address] * (ABNORMAL) Mycoplasma Pneumoniae Antibody, IgG & IgM (06/15/2025 2:42 PM EDT) Mycoplasma Pneumoniae Antibody IgM 0.11 <=0.76 U/L 06/19/2025 5:44 AM EDT [facility] ([employer] Mycoplasma Pneumoniae Antibody IgG 0.20(H) <=0.09 U/L 06/19/2025 5:44 AM EDT [facility] ([employer] Blood Arterial blood specimen / Unknown Arterial Puncture / Unknown 06/15/2025 2:42 PM EDT 06/15/2025 3:02 PM EDT Narrative [facility] ([employer] - 06/19/2025 5:44 AM EDT INTERPRETIVE INFORMATION: [...] more than 12 months post-infection. Performed By: [facility] [address] [place] [address] Rest Room Matron: Sotero Banuelos MD, PhD CLIA Number: [id number] Corry Doss APRN, DNP LAB BLOOD ORDERABLES Final Result [facility]) [address] [place] [address] * DC CRITICAL CARE, E/M 30-74 MINUTES (06/15/2025 9:09 AM EDT) Narrative Corry Doss APRN, DNP - 06/15/2025 9:09 AM EDT Corry oDss APRN, DNP 06/15/2025 9:12 AM Critical Care [...] IN CLINIC/BEDSIDE OR DERABLES Final Result * DC CRITICAL CARE, E/M 30-74 MINUTES (06/14/2025 9:53 [...] CLINIC/BEDSIDE OR DERABLES Final Result * (ABNORMAL) Respiratory Culture and Gram Stain (06/14/2025 8:18 AM EDT) Culture Heavy Growth 06/17/2025 11:03 AM EDT [facility] Culture Mixed upper respiratory kelsi(A) 06/17/2025 11:03 AM EDT [facility] Comment:The organism value f or this result has been updated. These results have been appended to the previously preliminary verified report. Gram Stain Result Fewer than 10 Epithelial cells/LPF(A) 06/17/2025 11:03 AM EDT [facility] Gram Stain Result Greater than 25 WBC/LPF(A) 06/17/2025 11:03 AM EDT [facility] Gram Stain Result Numerous Gram negative rods(A) 06/17/2025 11:03 AM EDT [facility] Gram Stain Result Numerous Gram positive cocci in pairs and chains(A) 06/17/2025 11:03 AM EDT [facility] Gram Stain Result Moderate Gram positive cocci in clusters(A) 06/17/2025 11:03 AM EDT [facility] Aspirate Specimen from endotracheal tube / Unknown Non-blood Collection / Unknown 06/14/2025 8:18 AM EDT 06/14/2025 10:27 AM EDT us Corry Doss APRN, DNP LAB MICROBIOLOGY - G ENERAL ORDERABLES Final Result [facility] [address] [place] [address] * XR Abdomen 1 View (06/14/2025 8:18 [...] IMG XR PROCEDURES Fi nal Result * ECG Adult (06/14/2025 4:26 AM EDT) EKG DIAGNOSIS CLASS Abnormal MUSE ECG Ventricular Rate 109 BPM MUSE ECG Atrial Rate 109 BPM MUSE ECG DC Interval 152 ms MUSE ECG QRSD Interval 86 ms MUSE ECG QT Interval 336 ms MUSE ECG QTC Interval 452 ms MUSE ECG P Delta -6 degrees MUSE ECG R Delta -1 degrees MUSE ECG T Wave Delta 5 degrees MUSE ECG Diagnosis Sinus tachycardia MUSE ECG Diagnosis Poor R-wave progression and cannot rule out an anterior infarct. MUSE ECG Diagnosis Cannot rule out Inferior infarct , age undetermined MUSE ECG Diagnosis Nonspecific T wave abnormality MUSE ECG Diagnosis Abnormal ECG MUSE ECG Diagnosis MUSE ECG Diagnosis Confirmed by Evin Flynn ([id number]) on 06/14/2025 2:38:22 PM MUSE ECG 06/14/2025 4:26 AM EDT 06/14/2025 2:38 PM EDT Raymond Katz BAR WELDER ECG ORDERABLES Final Result MUSE ECG * (ABNORMAL) Renal function panel (06/13/2025 3:35 PM EDT) Glucose, Plasma 148(H) 74 - 99 mg/dL 06/13/2025 4:23 PM EDT [facility] BUN, Plasma 31(H) 8 - 23 mg/dL 06/13/2025 4:23 PM EDT [facility] Creatinine, Plasma 2.02(H) 0.70 - 1.20 mg/dL 06/13/2025 4:23 PM EDT [facility] BUN/Creatinine Ratio 15 06/13/2025 4:23 PM EDT [facility] Sodium, Plasma 143 136 - 145 mmol/L 06/13/2025 4:23 PM EDT [facility] Potassium, Plasma 4.7 3.6 - 4.9 mmol/L 06/13/2025 4:23 PM EDT [facility] Chloride, Plasma 108(H) 97 - 107 mmol/L 06/13/2025 4:23 PM EDT [facility] CO2, Plasma 22 22 - 29 mmol/L 06/13/2025 4:23 PM EDT [facility] Anion Gap 13 6 - 16 mmol/L 06/13/2025 4:23 PM EDT [facility] Total Calcium, Plasma 8.2(L) 8.9 - 10.2 mg/dL 06/13/2025 4:23 PM EDT [facility] Phosphorus, Plasma 7.4(H) 2.5 - 4.5 mg/dL 06/13/2025 4:23 PM EDT [facility] Albumin, Plasma 2.6(L) 3.5 - 5.2 g/dL 06/13/2025 4:23 PM EDT [facility] eGFRcr 34.8 mL/min/1.7 3m*2 06/13/2025 4:23 PM EDT [facility] Comment:Reported eGFRcr in m L/min/1.73m2 is based the CKD-EPI 2020 equation that does not use a race coefficient. Blood Venous blood specimen / Unknown Venipuncture / Unknown 06/13/2025 3:35 PM EDT 06/13/2025 3:51 PM EDT us Roshan Haas APRN, DNP LAB BLOOD ORDERABLES Fi nal Result Performing Organization Address [facility] Co de Phone Number [facility] [address] [place] [address] * (ABNORMAL) Hemoglobin and hematocrit, blood (06/13/2025 11:57 AM EDT) [facility] HGB 12.8(L) 13.7 - 17.5 g/dL LAB HEMATOLOGY METHOD 06/13/2025 12:26 PM EDT [facility] HCT 37.2(L) 40.0 - 51.0 % LAB HEMATOLOGY METHOD 06/13/2025 12:26 PM EDT [facility] Blood Arterial blood specimen / Unknown Arterial Line / Unknown 06/13/2025 11:57 AM EDT 06/13/2025 12:17 PM EDT us Roshan Haas APRN, DNP LAB BLOOD ORDERABLES Fi nal Result Performing Organization Address City/[facility]/ZIP Co de Phone Number [facility] [address] [place] [address] * DC CRITICAL CARE, ADDL 30 MIN (06/13/2025 10:48 [...] IN CLINIC/BEDSIDE ORDER LOYD Final Result * PERIPHERAL IV (SMARTFORM LINK) (06/13/2025 4:14 [...] IV THERAPY ORDERABLES Final R esult * Richar auris Surveillance by PCR (06/12/2025 10:48 PM EDT) Richar auris PCR Result Not Detected Not Detected 06/13/2025 11:46 AM EDT [facility] Swab (Axilla and Groin) Non-blood Collection / Unknown 06/12/2025 10:48 PM EDT 06/12/2025 11:08 PM EDT Narrative [facility] - 06/13/2025 11:46 AM EDT This PCR assay was developed and its performance characteristics determined by [facility] as appropriate for clinical purposes. This assay has not been cleared or approved by the FDA, but is performed in a CLIA regulated laboratory that is qualified to perform high-complexity testing. us Dyllan Paul MD LAB MICROBIOLOGY - GENERAL OR DERABLES Final Result [facility] [address] [place] [address] * DC CRITICAL CARE, ADDL 30 MIN, DC CRITICAL CARE, ADDL 30 MIN, DC CRITICAL CARE, ADDL 30 MIN (06/12/2025 10:22 [...] APRN IN CLINIC/BEDSIDE ORDERABLES Final Result * PB ANESTHESIA NON-TIMED PROCEDURE PLACEHOLDER, PB [...] MD ANESTHESIA ORDERABLES Final R esult * (ABNORMAL) POCT arterial blood gas gem (06/12/2025 9:19 PM EDT) pH, Arterial 7.34 7.31 - 7.42 06/12/2025 9:20 PM EDT [facility] pCO2, Arterial 44 32 - 45 mm Hg 06/12/2025 9:20 PM EDT [facility] pO2, Arterial 81 >70 mm Hg 06/12/2025 9:20 PM EDT [facility] SO2, Arterial 98 94 - 98 % 06/12/2025 9:20 PM EDT [facility] Base Excess, Arterial -2.2(L) -2 - 3 mmol/L 06/12/2025 9:20 PM EDT [facility] HCO3, Arterial 23.7 22 - 26 mmol/L 06/12/2025 9:20 PM EDT [facility] Total Hemoglobin, Arterial, Whole Blood 12.2(L) 13.7 - 17.5 g/dL 06/12/2025 9:20 PM EDT [facility] Hematocrit, Arterial 37.0(L) 40 - 51.0 % 06/12/2025 9:20 PM EDT [facility] Sodium, Arterial 141 136 - 145 mmol/L 06/12/2025 9:20 PM EDT [facility] Potassium, Arterial 3.4(L) 3.6 - 4.9 mmol/L 06/12/2025 9:20 PM EDT [facility] Chloride, Whole Blood 112(H) 97 - 107 mmol/L 06/12/2025 9:20 PM EDT [facility] Glucose, Arterial 129(H) 74 - 99 mg/dL 06/12/2025 9:20 PM EDT [facility] Ionized Calcium, Arterial 4.5(L) 4.6 - 5.1 mg/dL 06/12/2025 9:20 PM EDT [facility] Lactate, Arterial 2.4(H) 0.5 - 1.6 mmol/L 06/12/2025 9:20 PM EDT [facility] Body Temperature 37.0 Celsius 06/12/2025 9:20 PM EDT [facility] pH, Temp Corrected, Arterial 7.34 7.31 - 7.42 06/12/2025 9:20 PM EDT [facility] pCO2, Temp Corrected, Arterial 44 32 - 45 mm Hg 06/12/2025 9:20 PM EDT [facility] pO2, Temp Corrected, Arterial 81 >70 mm Hg 06/12/2025 9:20 PM EDT [facility] Physical Science Professor ID Marvin Dyllan 06/12/2025 9:20 PM EDT [facility] Blood, Arterial Whole blood specimen / Unknown 06/12/2025 9:19 PM EDT 06/12/2025 9:20 PM EDT Dyllan Paul MD LAB POINT OF CARE TE ST DOCKED DEVICE UNSOLICITED RESULTS Final Result Performing Organization Address City/State/[facility] Co de Phone Number [facility] [address] [place], [place] [id number] * Transfuse RBC (06/12/2025 7:16 PM EDT) Only the most recent of2 resultswithin the time period is included. us Afshin Reece MD BLOOD TRANSFUSION ORDERABLES Final Result * ANESTHESIA ULTRASOUND GUIDED (06/12/2025 6:54 PM EDT) Narrative Afshin Reece MD - 06/12/2025 6:54 PM EDT Afshin Reece MD 06/12/2025 7:35 PM Peripheral IV Date/Time: 06/12/2025 6:54 PM Inserted by: Dyllan Wong DO Placement Needle size: 16 G Location: external jugular Site prep: alcohol Technique: ultrasound guided Attempts: 1 us Afshin Reece MD ANESTHESIA ORDERABLES Final R esult * Prepare Leukocyte Reduced RBC: 4 Units (06/12/2025 6:49 PM EDT) Product Code [id number] BLOO D BANK Dispense Status Returned BLOOD BANK Blood Expiration Date [id number] BLOOD BANK Unit Number [id number] CH B LOOD BANK Product Blood Type 5100 CH BLOOD BANK Blood Type O+ CH BLOOD BANK Crossmatch Compatible BLOOD BANK Product Code [id number] BLOO D BANK Dispense Status Returned CH BLOOD BANK Blood Expiration Date [id number] BLOOD BANK Unit Number [id number] CH B LOOD BANK Product Blood Type 5100 CH BLOOD BANK Blood Type O+ CH BLOOD BANK Crossmatch Compatible CH BLOOD BANK Product Code [id number] BLOO D BANK Dispense Status Transfused CH BLOOD BANK Blood Expiration Date [id number] BLOOD BANK Unit Number [id number] CH B LOOD BANK Product Blood Type 5100 CH BLOOD BANK Blood Type O+ CH BLOOD BANK Crossmatch Compatible BLOOD BANK Product Code [id number] BLOO D BANK Dispense Status Transfused CH BLOOD BANK Blood Expiration Date [id number] BLOOD BANK Unit Number [id number] CH B LOOD BANK Product Blood Type 5100 BLOOD BANK Blood Type O+ CH BLOOD BANK Crossmatch Compatible BLOOD BANK Other Afshin Reece MD BLOOD BANK PRODUCT ORDERABLES Edited Result - Final Performing Organization Address City/State/[facility] Co de Phone Number BLOOD BANK [address] [place] [address], * Surgical Pathology Exam (06/12/2025 6:07 PM EDT) Case Report Surgical Pathology Case: [id number] Authorizing Provider: Dyllan Paul MD Collected: 06/12/20251806 Ordering Location: [facility]PERATING RO[facility] Received: 06/13/2025 0811 Pathologist: Aliza Daugherty MD Specimens: A) - Other (specify site), Prostate and seminal vesicles - fresh for permanent B) - Other (specify site), Bilateral pelvic lymph nodes - permanent 06/19/2025 10:43 AM EDT [facility] Final Diagnosis A. PROSTATE AND [...] LYMPH NODES (0/8). 06/19/2025 10:[address] [facility] at 1043 EDT Synoptic Checklist PROSTATE GLAND: [...] Acute and chronic 06/19/2025 10:43 AM EDT [facility] Clinical Information PROSTATE CANCER 06/19/2025 10:43 AM EDT [facility] Gross Description A. PROSTATE AND SEMINAL VESICLES - FRESH FOR PERMANENT Specimen label: Prostate and seminal vesicles Specimen fixation: Formalin Specimen type: Radical Prostatectomy Specimen Weight: 75 grams Specimen Size: The prostate measures 5.0 cm uali-vx-siep, 5.1 cm ejjnyioa-fy-knzqkw ior, and 7.3 cm kuth-pb-gqjjg. The left seminal vesicle measures 1.5 x [...] cassettes. The prostate is serially sectioned from rdez-hb-cqtx into 9, 5mm slices. Serial sections reveal ritchie-white, nodular parenchyma. A salcedo-yellow mass is located right and left posterolateral [...] Cold Time: <1m 06/19/2025 10:43 AM EDT [facility] Note: A resident was involved in the service. I attest I examined the relevant preparations for the specimens and confirmed the diagnosis or interpretation. 06/19/2025 10:43 AM EDT [facility] Tissue Topography unknown / Unknown 06/12/2025 6:07 PM EDT 06/13/2025 8:11 AM EDT Comment:Pre-op diagnosis: PROSTATE CANCER Lymph node tissue specimen (specimen) Topography unknown / Unknown 06/12/2025 6:08 PM EDT 06/13/2025 8:11 AM EDT Comment:Pre-op diagnosis: PROSTATE CANCER Result [facility] Dyllan Paul MD LAB PATHOLOGY ORDERABLES Francia lezama Result [facility] [address] [place] [address] * Peripheral IV (06/12/2025 3:17 PM EDT) Narrative Reyna Houston MD - 06/12/2025 3:17 PM EDT Reyna Houston MD 06/12/2025 4:40 PM Peripheral IV Placement Needle size: 18 G Location: arm Site prep: alcohol Technique: anatomical landmarks Result [facility] Reyna Houston MD ANESTHESIA ORDERABLES Final R esult * DC AN ELECTIVE ENDOTRACHEAL AIRWAY, PB ANESTHESIA PLACEHOLDER [...] ETCO2, Atraumatic, No change to dentition. Result [facility] Reyna Houston MD ANESTHESIA ORDERABLES Final R esult * Phosphatidylethanol (PEth), Whole Blood, Quantitative (06/12/2025 1:14 PM EDT) [facility] 16:0/18:2 (PLPEth) 251 ng/mL 06/14/2025 11:37 AM EDT [facility] ([facility]) PEth 16:0/18:1 (POPEth) 260 ng/mL 06/14/2025 11:37 AM EDT [facility] ([facility]) EER Peth See Note 06/14/2025 11:37 AM EDT [facility] ([facility]) PEth Interpretation See Comment 06/14/2025 11:37 AM EDT [facility] ([facility]) Blood Venous blood specimen / Unknown Venipuncture / Unknown 06/12/2025 1:14 PM EDT 06/12/2025 1:43 PM EDT Narrative [facility] ([facility]) - 06/14/2025 11:37 AM EDT [facility] 16:0/18:1 (POPEth) Less than 10 ng/mL............Not detected Less than 20 ng/mL............Abstinence or light alcohol consumption 20 - 200 ng/mL................Moderate alcohol consumption Greater than 200 ng/mL........Heavy alcohol consumption or chronic alcohol use (Reference: Nichole Means and Mike Lowe 2018 J. Forensic Sci) Reference ranges are not well established. Authorized individuals can access the [facility] Enhanced Report with an [facility] account using the following link. Your local lab can assist you in obtaining the patient report if you don't have a Connect account. [email or web address] Phosphatidylethanol (PEth) is a group of phospholipids [...] developed and its performance characteristics determined by [facility]. It has not been cleared or approved by the U.S. Food and Drug Administration. This test was performed in a CLIA-certified laboratory and is intended for clinical purposes. Performed By: [facility] [address] [place] [id number] Rest Room Matron: Sotero Banuelos MD, PhD CLIA Number: [id number] Dyllan Paul MD LAB REF LAB BLOOD AND FLUID O RD Final Result Performing Organization Address [facility] Co de Phone Number [facility] ([facility]) [address] [place] [address] * Hepatitis C Antibody (03/28/2025 6:34 AM EDT) Hepatitis C Antibody Negative Negative 03/28/2025 7:51 AM EDT [facility] Blood Venous blood specimen / Unknown Venipuncture / Unknown 03/28/2025 6:34 AM EDT 03/28/2025 7:08 AM EDT Marco Joiner MD LAB BLOOD ORDERABLES Final Resul t [facility] [address] [place] [address] from Last 3 Months or Most Recently Relevant to Health Maintenance Additional Health Concerns Active Problems Noted Date Diagnosed Date Autogenerated Problem 07/22/2025 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 Insurance ANTHEM MEDICARE MEDICARE Advance Directives Documents on File Type Date Recorded 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 Expl anation Advance Directives and Living Will 06/12/2025 * Full Code (Latest Code Status on File) Date Activated Date Inactivated Comments 06/29/2025 5:19 AM 07/04/2025 4:55 PM Question Answer Comments I have reviewed the capacity from the link above and, if needed, have updated to appropriate status: Yes * Full Code Date Activated Date Inactivated Comments 06/12/2025 8:40 PM 06/25/2025 9:17 PM Question Answer Comments I have reviewed the capacity from the link above and, if needed, have updated to appropriate status: Yes Care Teams Geothermal Production Manager Relationship Specialty Start Date End Date Murray Prajapati MD [id number] [place] [address] PCP - General 03/06/23 Jaja Camara APRN [address] [facility] [address] [place] [address] Referring Physician Gastroenterology 03/06/23 Dyllan Paul MD [id number] [place] [address] Surgeon Urology 04/29/25 Wendy Card LPN VALUE-BASED TRANSFORMATION PROGRAM TCM Nurse 07/07/25
--- NOTE | 2025-07-25 16:46 | XR_ITS ---
PROCEDURE INFORMATION: Exam: XR Chest Exam date and time: 07/25/2025 4:55 PM Age: 70 years old Clinical indication: Other: Sepsis TECHNIQUE: Imaging protocol: Radiologic exam of the chest. Views: 1 view. Total images: 1 COMPARISON: No relevant prior studies available. FINDINGS: Lungs: Atelectatic changes noted within both lung bases. No focal pneumonia. Pleural spaces: No pleural effusion. No pneumothorax. Heart/Mediastinum: No cardiomegaly. Diaphragm: There is nonspecific elevation of the right hemidiaphragm. Bones/joints: Unremarkable. IMPRESSION: 1. Atelectatic changes noted within both lung bases. 2. No focal pneumonia.
--- NOTE | 2025-07-25 16:50 | ED_ITS ---
<Statement entered by Rosalio Garcia MD - 07/25/25 23:23> I was consulted by the AZEEM, and we discussed the complexity of the problems being addressed. I approved the treatment and management plan for this patient's care in the emergency department, thus performing a substantive portion of the medical decision making. Rosalio Garcia MD, KE, FACEP Discharge Plan Disposition Patient Disposition: Xfer Other Prescriptions Prescriptions: No Action vitamin E mixed 1,000 unit capsule 1,000 unit PO DAILY Qty: 100 3RF carvedilol 3.125 mg tablet 3.125 mg PO BID Rx Instructions: must administer with a meal/food furosemide [Lasix] 40 mg tablet See Rx Instructions PO QAM PRN (Reason: Fluid) Qty: 120 1RF Rx Instructions: 1 or 2 tablets each morning orally PRN; potassium chloride [Klor-Con 10] 10 mEq tablet extended release See Rx Instructions PO DAILY PRN (Reason: Fluid) Qty: 120 1RF Rx Instructions: 1 or 2 orally daily PRN; 1 or 2 orally each morning with as needed furosemide; tamsulosin 0.4 mg capsule PO oxycodone 5 mg tablet 5 mg PO HS PRN enoxaparin 120 mg/0.8 mL syringe 120 mg SQ DAILY atorvastatin [Lipitor] 10 mg tablet 10 mg PO DAILY Qty: 90 1RF Referrals Follow up/Referrals: Murray Prajapati MD [Primary Care Provider, Medical] - See instructions Clinical Impressions Clinical Impression: Cirrhosis of liver, Acute hypotension, Acute kidney failure, Oliguria Stand Alone Forms Stand Alone Forms: Transfer Record - ED Print Language Print Language: Kinyarwanda Discharge ED Provider: Rosalio Garcia General Adult HPI General Chief complaint: Weakness Stated complaint: Poor appitite,Not drinking x3days Time Seen by Provider: 07/25/25 16:32 Mode of Arrival: Ambulatory Source of Information: Patient and Spouse Description of Symptoms (Recalled from ER Triage Doc. by RN): patient presents to the ED for weakness, lowe blood pressure, and no appetite. patient has quite the history since May 13. Ilya had a pristatectomy on the , ended up aspirating and had a stay in the ICU. he was later discharged form the hospital and back on06/21 for a surgical site infection. patient noticed the worsening weakness and no appetite after a recent CT scan. History of Present Illness HPI narrative: 70-year-old male presents to the ED today for complaint of weakness, low blood pressure and decreased appetite since the end of May. He had prostate surgery where he had a prostatectomy for prostate cancer. He went home then aspirated and had to go back to the hospital. He ended up with cirrhosis and kidney issues. He also had a surgical site infection. He has had 5 kidney stones and has passed 1. He had a stent placed at before he went home. This past Monday he had a CT scan with contrast and since then he has not been eating or drinking. Even water makes him sick. states he spent 3 weeks in the hospital from the end of May to the middle of June. He has been ill since. Patient's has been keeping record of his low blood pressure. It has been systolic in the 80s and low 90s. Occasionally it will jump into the low 100s. Patient appears unwell. He does have some swelling in his bilateral lower extremities. states this looks good today. He sees Dr. Garcia at urology. Related Data Home Medications ?Medication ?Instructions ?Recorded ?Confirmed carvedilol 3.125 mg tablet 3.125 mg PO BID 03/31/25 enoxaparin 120 mg/0.8 mL 120 mg SQ DAILY 07/14/25 subcutaneous syringe oxycodone 5 mg tablet 5 mg PO HS PRN 07/14/2506/21 tamsulosin 0.4 mg capsule mg PO 07/14/25 07/14/25 Previous Rx's ?Medication ?Instructions ?Recorded vitamin E mixed 1,000 unit capsule 1,000 unit PO DAILY liver #100 caps 05/08/24 furosemide 40 mg tablet (Lasix) See Rx Instructions PO QAM PRN 05/15/25 Fluid #120 tabs potassium chloride 10 mEq See Rx Instructions PO DAILY PRN 05/15/25 tablet,extended release (Klor-Con) Fluid #120 tabs atorvastatin 10 mg tablet (Lipitor) 10 mg PO DAILY #90 tabs 05/27/25 Allergies Allergy/AdvReac Type Severity Reaction Status Date / Time No Known Allergies Allergy Verified 07/14/25 09:13 [facility] Disclaimer: The information contained in this section may have been updated after the patient was seen, as this information can be updated by other users. Medical History Impacted cerumen of both ears Surgical History History of prostatectomy Social History Smoking Status: Never smoker second hand exposure: No alcohol intake: current alcohol intake frequency: 0-2 drinks per day substance use type: denies use current occupational status: other Travel in the last 8 weeks?: None household members: spouse housing: house Have you lived/traveled outside US in past 30 days?: No Contact w/someone who lives/traveled outside US past 30 days?: No Exposure to someone with infectious disease in past 14 days?: No Do you have a fever (greater than 100.4 F or 38 C)?: No Have you tested positive for COVID-19?: No Exposed to someone with COVID-19 in past 14 days?: No Do you have a sore throat?: No Do you have a cough?: No Do you have any weakness?: No Do you have any diarrhea?: No Are you experiencing any unusual bleeding?: No Do you have any muscle aches/pain?: No Do you have any abdominal pain?: No Are you experiencing loss of taste or smell?: No Other Medical History Have you received the Pneumonia Vaccine: No ROS Obtained: Yes Systems reviewed as appropriate & no additional complaints except as documented Constitutional Constitutional: Reports as per HPI Physical Exam General General appearance: alert, lethargic and in distress Head Head exam: atraumatic Eye Eye exam: Present PERRL and EOMI ENT ENT exam: Present normal oropharynx and mucous membranes dry Neck Neck exam: Present full ROM and trachea midline Respiratory Respiratory exam: Present normal lung sounds bilaterally Cardiovascular Cardiovascular exam: Present regular rate, normal rhythm, normal heart sounds, +S1 and +S2 Abdominal Exam Abdominal exam: Present soft, tenderness and normal bowel sounds Abdominal tenderness: Present diffuse Extremities Exam Extremities exam: Present full ROM, normal capillary refill and edema Neurological Exam Neurological exam: Present alert and oriented X3 Skin Skin exam: Present warm and dry Medical Decision Making Medical Records Screening: Per USPSTF and CDC recommendations, given the prevalence of disease in our region, it is our hospital?s policy to screen for HIV and viral Hepatitis for all patients aged 18 and over and those with ongoing risk factors. Juni Inquiry Pt receiving controlled substance: No Juni was queried for this patient: No Vital Signs: 07/25/25 16:07 07/25/25 16:59 07/25/25 17:30 Temperature 98.9 F Temperature Source Temporal Artery Scan Pulse Rate 79 Pulse Rate [Right Radial] 101 H Respiratory Rate 20 16 Blood Pressure 111/77 114/71 Blood Pressure [Left Arm] 97/65 L Blood Pressure Mean 90 Blood Pressure Mean [Left Arm] 75 Blood Pressure Source Automatic Cuff Blood Pressure Source [Left Arm] Automatic Cuff Blood Pressure Position Sitting Blood Pressure Position [Left Arm] Sitting 02 Sat by Pulse Oximetry 96 96 Oxygen Delivery Method Room Air Room Air 07/25/25 18:00 07/25/25 18:30 07/25/25 19:01 Temperature Temperature Source Pulse Rate 83 80 79 Pulse Rate [Right Radial] Respiratory Rate 16 19 18 Blood Pressure 117/72 125/72 108/75 L Blood Pressure [Left Arm] Blood Pressure Mean 85 85 86 Blood Pressure Mean [Left Arm] Blood Pressure Source Blood Pressure Source [Left Arm] Blood Pressure Position Blood Pressure Position [Left Arm] 02 Sat by Pulse Oximetry 96 97 98 Oxygen Delivery Method Room Air Room Air Room Air 07/25/25 20:46 Temperature 98.4 F Temperature Source Oral Pulse Rate 88 Pulse Rate [Right Radial] Respiratory Rate 18 Blood Pressure 108/74 L Blood Pressure [Left Arm] Blood Pressure Mean Blood Pressure Mean [Left Arm] Blood Pressure Source Automatic Cuff Blood Pressure Source [Left Arm] Blood Pressure Position Supine Blood Pressure Position [Left Arm] 02 Sat by Pulse Oximetry Oxygen Delivery Method Room Air Lab Data Lab Results 07/25/25 15:48: NT-Pro-B Natriuret Pep 24.7 07/25/25 16:52: WBC 8.0, RBC 3.76 L, Hgb 12.0 L, Hct 34.7 L, MCV 92.3, MCH 31.9 H, MCHC 34.6, RDW 15.2, Plt Count 91 L, MPV 12.6 H, Neut % (Auto) 45.9, Lymph % (Auto) 38.9, [place] % (Auto) 10.9 H, Eos % (Auto) 3.4, Baso % (Auto) 0.5, Neut # (Auto) 3.7, Lymph # (Auto) 3.1, [place] # (Auto) 0.9, Eos # (Auto) 0.3, Baso # (Auto) 0.0, ESR 140 H, PT 15.0 H, INR 1.38 H, APTT 60.6 H*, Sodium 129 L, P otassium 5.2 H, Chloride 104, Carbon Dioxide 17 L, Anion Gap 13.2, BUN 70 H, C reatinine 6.50 H, Estimated Creat Clear 14, Estimated GFR 9 L*, Est GFR ( Amer) 10 L*, Glucose 95, Lactate 1.7, Calcium 8.5, Total Bilirubin 1.0, AST 53, ALT 20, Alkaline Phosphatase 144 H, Ammonia 65 H, Total Creatine Kinase < 20 L, C-Reactive Protein 53.1 H, Total Protein 5.4 L, Albumin 2.8 L, Globulin 2.6, Albumin/Globulin Ratio 1.1 07/25/25 16:55: Chlamy pneumoniae PCR Not detected, Adenovirus (PCR) Not detected, B. pertussis DNA (PCR) Not detected, Coronavirus OC43 (PCR) Not detected, Coronavirus HKU1 (PCR) Not detected, Coronavirus 229E (PCR) Not detected, SARS-CoV-2 (PCR) Not detected, Coronavirus NL63 (PCR) Not detected, Human Metapneumovir PCR Not detected, Influenza A (H1) PCR Not detected, Influ A (H1N1/09) PCR Not detected, Influenza A (H3) PCR Not detected, Influenza Type A (PCR) Not detected, Influenza Type B (PCR) Not detected, M. pneumoniae (PCR) Not detected, Parainfluenza 1 (PCR) Not detected, Parainfluenza 2 (PCR) Not detected, Parainfluenza 3 (PCR) Not detected, Parainfluenza 4 (PCR) Not detected, RSV (PCR) Not detected, Entero/Rhino (PCR) Not detected 07/25/25 19:01: VBG pH 7.36, VBG pCO2 31.7 L, VBG pO2 46.2 H, VBG HCO3 17.5 L, V BG Total CO2 18.4 L, VBG O2 Saturation 79.4 H, VBG Base Excess -8.0 L, VBG Lactic Acid 4.2 H 07/25/25 16:52 07/25/25 16:52 Orders (Tests/Meds): ED MEDICATIONS Discontinued Medications Generic Name Dose Route Start Last Admin Trade Name Francisca PRN Reason Stop Dose Admin Lactated Ringer's 2,790 mls @ 1,395 mls/hr 07/25/25 16:45 07/25/25 18:57 Lactated Ringer's 1000 Ml Bag 30 ml/kg infuse over 2 hr (2790 ml) 07/25/25 18:44 Infused IV Infusion .Q2H ONE Protocol ORDERS Category Date Time Status CT abdomen pelvis wo con Stat Cat Scan 07/25/25 17:47 Completed Chest XR -- portable [XR chest portable] Stat Exams 07/25/25 16:46 Completed Activated Partial Thrombo Time Stat Lab 07/25/25 16:52 Completed Ammonia Stat Lab 07/25/25 16:52 Completed BNP [NT Pro Brain Natriuretic Pep.] Stat Lab 07/25/25 15:48 Completed C-Reactive Protein Stat Lab 07/25/25 16:52 Completed Complete Blood Count Auto Diff Stat Lab 07/25/25 16:52 Completed Comprehensive Metabolic Panel Stat Lab 07/25/25 16:52 Completed Creatine Kinase Stat Lab 07/25/25 16:52 Completed Erythrocyte Sedimentation Rate Stat Lab 07/25/25 16:52 Completed Full Resp Panel w/COVID ([facility]) Routine Lab 07/25/25 16:55 Completed Lactic Acid Stat Lab 07/25/25 16:52 Completed Prothrombin Time INR Stat Lab 07/25/25 16:52 Completed Urinalysis and Microscopic Stat Lab 07/25/25 16:45 Ordered Blood Culture Stat Micro 07/25/25 16:57 Received VBG [Venous Blood Gas] Stat RT 07/25/25 19:01 Completed Medical Decision Narrative: patient is a 70-year-old male presenting to the emergency department for evaluation of declining since Monday after he had a contrasted scan. He has had recent history of a prostatectomy, had a stent placement for kidney stones, recent concern for site infection, cirrhosis, and weakness that has increased. Patient has been declining in his p.o. intake including water since Monday. Patient is hemodynamically stable and nontoxic-appearing upon arrival, afebrile. Differential diagnosis includes obstructive uropathy, renal failure, hypotension, sepsis, among others. Workup will be conducted with hematologic labs, specific imaging. Initial inventions include crystalloid bolus. Initial workup reviewed by me patient does not have a high white count his is 8, BUN was 70, creatinine was 6.5, GFR was 9. PTT was 60.6. Albumin was 2. 8. Patient blood pressure has been slightly hypotensive but better than what has been recording. I discussed with Dr. Haas and Dr. Harden who was the urologist on-call at . Dr. Haas excepted patient to [facility] for medical management. Discussed with patient and family. Patient stable for transfer. Critical Care Critical Care Time Critical Care Time: No
[2025-07-25] MEDS: LACTATED RINGERS 1395 ML IV (17:03)
--- NOTE | 2025-07-25 17:16 | ECG_ITS ---
APPROVED REPORT Exam: Resting ECG HR:81 bpm ECG Measurements Heart Rate [address] 211 P 12 QRSd 101 QRS -3 QT 372 T 37 QTc 410 Conclusion SINUS RHYTHM WITH FIRST DEGREE AV BLOCK ABNORMAL ECG UNCONFIRMED REPORT Electronically signed by : Mick Garcia, 07/25/2025 23:28:27
[2025-07-25 17:25] LABS: Adenovirus,PCR Not Detected (NotDetected); Chlamydophila Pneumoniae, PCR Not Detected (NotDetected); Coronavirus 19, PCR Not Detected (NotDetected); Coronovirus HKU1,PCR Not Detected (NotDetected); Influenza A, PCR Not Detected (NotDetected); Influenza AH1, 2009 Not Detected (NotDetected); Influenza AH1, PCR Not Detected (NotDetected); Influenza AH3,PCR Not Detected (NotDetected); Influenza B, PCR Not Detected (NotDetected); Mycoplasma Pneumoniae, PCR Not Detected (NotDetected); Parainfluenza 1, PCR Not Detected (NotDetected); Parainfluenza 2, PCR Not Detected (NotDetected); Parainfluenza 3, PCR Not Detected (NotDetected); Parainfluenza 4, PCR Not Detected (NotDetected)
[2025-07-25 17:35] LABS: Albumin Level 2.8 g/dl (3.5-5.0); Chloride 104 mmol/L (98-107); Sodium 129 mmol/L (136-145)
[2025-07-25 17:36] LABS: Potassium 5.2 mmoL/L (3.5-5.1)
[2025-07-25 17:38] LABS: Alanine Aminotransferase 20 U/L (12-78); Albumin/Globulin Ratio 1.1 (1.1-1.8); Alkaline Phosphatase 144 U/L (38-126); Anion Gap 13.2 mEq/L (5-15); Aspartate Amino Transferase 53 U/L (17-59); Bilirubin,Total 1.0 mg/dl (0.2-1.3); Blood Urea Nitrogen 70 mg/dl (9-20); Carbon Dioxide 17 mmol/L (22.0-30.0); Creatinine Clearance Estimated 14 mL/min (50-200); Estimated Glomerular Filt Rate 9 ml/min (>60); GFR (African American) 10 ML/MIN (>60); Globulin 2.6 g/dL (1.3-3.2); Total Protein,Serum 5.4 g/dl (6.3-8.2)
[2025-07-25 17:39] LABS: Calcium 8.5 mg/dl (8.4-10.2); Glucose 95 mg/dl (74-100)
[2025-07-25 17:40] LABS: Ammonia 65 umol/L (9-30); Creatine Kinase < 20 U/L (55-170); Hematocrit 34.7 % (42.0-52.0); Hemoglobin 12.0 g/dL (14.1-18.0); INR 1.38 (0.9-1.1); Immature Granulocytes % 0.4 %; Mean Corpuscular HGB Conc 34.6 g/dL (31.8-35.4); Mean Corpuscular Hemoglobin 31.9 pg (27.0-31.2); Mean Corpuscular Volume 92.3 fl (80-94); Nucleated Red Blood Cells % 0 %; Platelet Count 91 K/mm3 (142-424); Prothrombin Time 15.0 seconds (10.1-12.5); Red Blood Count 3.76 M/mm3 (4.60-6.20); Red Cell Distribution Width-SD 51.3 fL; White Blood Count 8.0 K/mm3 (4.8-10.8)
[2025-07-25 17:41] LABS: Creatinine,Serum 6.50 mg/dl (0.66-1.25)
--- NOTE | 2025-07-25 17:47 | CT_ITS ---
PROCEDURE INFORMATION: Exam: CT Abdomen And Pelvis Without Contrast Exam date and time: 07/25/2025 6:09 PM Age: 70 years old Clinical indication: Other: Kidney failure TECHNIQUE: Imaging protocol: Computed tomography of the abdomen and pelvis without contrast. Radiation optimization: All CT scans at this facility use at least one of these dose optimization techniques: automated exposure control; mA and/or kV adjustment per patient size (includes targeted exams where dose is matched to clinical indication); or iterative reconstruction. COMPARISON: US ABDOMEN LIMITED 10/15/2019 8:46 AM FINDINGS: Lungs: Lung bases are clear. Liver: Nodular contour of the liver compatible with cirrhosis. Gallbladder and biliary ducts: Status post cholecystectomy. No evident bile duct dilatation allowing for prior cholecystectomy. Pancreas: Normal. No ductal dilation. Spleen: Splenomegaly measuring 15 cm in length by 18.6 cm in AP dimension. Adrenal glands: Normal. No mass. Kidneys and ureters: 14 mm fluid density lesion posterior mid to upper right kidney compatible with a cyst. No follow-up advised. A 3 mm nonobstructing right kidney stone. Corticomedullary enhancement of the kidneys are noted which is symmetric presumably related to a recent contrast-enhanced study not listed in the timeline or performed at an outside institution. Right ureteral stent is noted. The proximal coil of the stent is located in the proximal right ureter. Distal portion of the stent located in the bladder. No evident hydronephrosis. Stomach and bowel: Mild thickened appearance of the colon from the cecum through the rectum. GI tract structures otherwise unremarkable with no evident wall thickening allowing for incomplete distention. Appendix: Appendix is normal. No evidence of appendicitis. Intraperitoneal space: Small amounts of ascites. Vasculature: Recanalized umbilical vein and upper abdomen varices including the anterior abdomen, paraesophageal and perigastric and perisplenic region. Lymph nodes: Unremarkable. No enlarged lymph nodes. Urinary bladder: Mild excreted contrast in the bladder which is otherwise unremarkable. Reproductive: Unremarkable as visualized. Bones/joints: Unremarkable. No acute fracture. Soft tissues: Mild body wall edema. Associated intra-abdominal fat tissue edema compatible with anasarca. IMPRESSION: 1. Cirrhosis. Associated splenomegaly and upper abdomen varices compatible with portal venous hypertension. 2. Anasarca and ascites. 3. Mild diffuse colonic wall thickening that may reflect portal colopathy. Colitis not totally excluded in the proper clinical setting. 4. Residual enhancement of the kidneys and contrast in the bladder presumably related to recent contrast injection. 5. Right ureteral stent that may no longer be satisfactory in position with the proximal portion of the coil in the proximal right ureter. COMMENTS: Consistent with the [employer]'s Incidental Findings Committee white paper (J Am Shaji Radiol 2018): Any incidental renal lesion less than 1 cm or classified as too small to characterize, or any incidental cystic renal lesion characterized as simple-appearing, is likely benign. No follow-up imaging is recommended for these lesions per consensus recommendations based on imaging criteria.
--- NOTE | 2025-07-25 17:47 | PC.NURSE ---
Bladder Scan of 6mL reported to [facility]
[2025-07-25 17:49] LABS: NT Pro Brain Natriuretic Pep. 24.7 pg/mL (0-125)
[2025-07-25 17:50] LABS: Activated Partial Thrombo Time 60.6 seconds (22.8-30.6)
[2025-07-25 18:01] LABS: C-Reactive Protein 53.1 mg/L (0-4)
[2025-07-25 19:09] LABS: VBG HCO3 17.5 mmol/L (23-30); VBG PCO2 31.7 mmol/L (35-51); VBG PH 7.36 mmol/L (7.31-7.41); VBG PO2 46.2 mmol/L (28-40)
[2025-07-25 19:11] LABS: Lactate Venous 4.2 mmol/L (0.4-2.0)
--- NOTE | 2025-07-25 19:25 | PC.NURSE ---
Called [facility] for a possible patient transfer to [place]
--- NOTE | 2025-07-25 20:36 | PC.NURSE ---
Bladder scan 110ml
--- NOTE | 2025-07-25 20:45 | PC.NURSE ---
Report called to [facility] LEES meteorologist in charge Tray
[2025-07-25 23:10] LABS: Reflex Lactic Add Lactic Reflex
[2025-07-26 00:07] LABS: Lactic Acid Follow Up (RFLX 1) 1.6 mmol/L (0.7-2.1)
[2025-07-26 00:30] VITALS: BP 113/71
[2025-07-26 00:45] VITALS: PULSE 92; RESP 18; O2SAT 93
[2025-07-26 01:21] VITALS: BP 99/66; PULSE 80; RESP 16; TEMP 36.6; O2SAT 95
== END 2025-07-26 01:22 | disposition other institution (70) ==
PROVIDERS: Nurse Practitioner; Emergency Provider Student in an Organized Health Care Education/Training Program; PCP Internal Medicine
DX: I95.9 Hypotension, unspecified (principal); R63.8 Other symptoms and signs concerning food and fluid intake; R74.02 Elevation of levels of lactic acid dehydrogenase [LDH]; K74.60 Unspecified cirrhosis of liver; N17.9 Acute kidney failure, unspecified; R34 Anuria and oliguria; E87.1 Hypo-osmolality and hyponatremia; E87.5 Hyperkalemia
CPT/HCPCS: 0223U; 71045; 74176; 80053; 82140; 82550; 82803; 83605; 83880; 85025; 85610; 85651; 85730; 86140; 87040; 93005; 96360; 96361; 99285; J7120

== ENCOUNTER 2025-08-05 11:40 | Outpatient (CLI) | payer BC, SELFPAY ==
--- OUTSIDE RECORDS SUMMARY | 2025-06-12 10:20 | XMS_ITS | Encounter Summary ---
Author Organization [facility] Address [address] [place] [address] Care Team Providers Care Designer And Patternmaker Name Role Phone Murray Prajapati MD Primary Care Provider [phone] Jaja Camara ICE CREAM MACHINE OPERATOR Unavailable [phone] Dyllan Paul MD Unavailable [phone] Reason for Referral * Consultation (Routine) - Authorized Specialty Diagnoses / Procedures Referred By Silverio barone Referred To Contact Hepatology Diagnoses Alcoholic cirrhosis of liver with ascites (CMS/HCC) Hepatic cirrhosis, unspecified hepatic cirrhosis type, unspecified whether ascites present (CMS/HCC) Trice Herrera MD [address] [address] Phone: tel: fax: Referral ID Status Reason Start Date Expiration Date Visits Requested Visits Authorized [id number] Authorized Specialty Services Required 06/25/2025 12/25/2026 1 1 * Imaging (Routine) - Closed Specialty Diagnoses / Procedures Referred By Silverio barone Referred To Contact Radiology Diagnoses Renal calculi Procedures CT Urogram Trice Herrera MD [address] [address] Phone: tel: fax: Referral ID Status Reason Start Date Expiration Date Visits Re quested Visits Authorized [id number] Closed 06/25/2025 12/25/2026 1 1 * Consultation (Routine) - Authorized Specialty Diagnoses / Procedures Referred By Silverio t Referred To Contact Hepatology Diagnoses Hepatic cirrhosis, unspecified hepatic cirrhosis type, unspecified whether ascites present (CMS/HCC) Trice Herrera MD [address] [address] Phone: tel: fax: Referral ID Status Reason Start Date Expiration Date Visits Requested Visits Authorized [id number] Authorized Specialty Services Required 06/25/2025 12/25/2026 1 1 * Consultation (Routine) - Authorized Specialty Diagnoses / Procedures Referred By Silverio t Referred To Contact Internal Medicine Diagnoses Alcoholic cirrhosis of liver with ascites (CMS/HCC) Nir Aguilar MD [address] [place] [phone] Phone: tel: fax: Referral ID Status Reason Start Date Expiration Date Visits Requested Visits Authorized [id number] Authorized Specialty Services Required 06/25/2025 12/25/2026 1 1 Scheduling Instructions Establish care with PCP, Patient with history of cirrhosis and prostate cancer * Consultation (Routine) - Authorized Specialty Diagnoses / Procedures [facility] By [facility] Referred To Contact Occupational Therapy Diagnoses H/O prostatectomy Trice Herrera MD [address] [address] Phone: tel: fax: Referral ID Status Reason Start Date Expiration Date Visits Requested Visits Authorized [id number] Authorized Consult and Treat 06/25/2025 12/25/2026 1 1 * Consultation (Routine) - Authorized Specialty Diagnoses / Procedures [facility] Referred To Contact Physical Therapy Diagnoses H/O prostatectomy Trice Herrera MD [address] [address] Phone: tel: fax: Referral ID Status Reason Start Date Expiration Date Visits Requested Visits Authorized [id number] Authorized Consult and Treat 06/25/2025 12/25/2026 1 1 * Home Health (Routine) - Authorized Specialty Diagnoses / Procedures Referred By Silverio barone Referred To Contact Home Health Services Diagnoses Prostate CA (CMS/HCC) Dyllan Paul MD [address] [address] Phone: tel: fax: Referral ID Status Reason Start Date Expiration Date Visits Requested Visits Authorized [id number] Authorized Specialty Services Required 06/23/2025 12/23/2026 999 999 Reason for Visit * Auth/Cert (Routine) Specialty Diagnoses / Procedures Referred By Silverio barone Referred To Contact Diagnoses Prostate CA (CMS/HCC) PROSTATE CANCER Procedures CO LAP,PROSTATECTOMY,RADICAL, W/NERVE SPARE,INCL ROBOTIC PROSTATECTOMY, RADICAL, ROBOT-ASSISTED Dyllan Paul MD [address] [address] Phone: tel: fax: [facility] [address] [place] [address] Phone: tel: Referral ID Status Reason Start Date Expiration Date Visits Re quested Visits Authorized [id number] 1 1 Encounter Details Date Type Department Care Team (Latest Contact Info) Description 06/12/2025 10:20 AM EDT - 06/25/2025 7:12 PM EDT Hospital Encounter [facility] [address] [place] [address] Dyllan Paul MD [address] [phone] Prostate CA (CMS/HCC) (Primary Dx); Alcohol use [...] any time in the past 12 m [facility], were you homeless or living in a retirement (including now)? No 06/16/2025 Utilities Answer Date [...] Risk Indicated 06/24/2025 8:00 PM EDT Gill White, RN * Question Answer Date of Assessment Author 1. Wish to be (Past 1 Month) No 025 8:00 PM EDT Gill White, RN 2. Non-Specific Active Suici tyra Thoughts (Past 1 Month) No 06/24/2025 8:00 PM EDT Gill White, RN 6. Suicidal Behavior (Lifetime) No 8:00 [...] confirm your location ahead of your appointment) [facility] Urology Department Clinic at [facility] [address] [facility] [address] [facility], [address] [place] [address] Clinic After Hours [facility] Multidisciplinary Urology Clinic [address] [place] [address] Clinic documented in this encounter Medications at [...] Notes * Query Clarification Note - Dyllan Pual MD - 06/25/2025 7:12 PM EDT Physician [...] from the original note were not included. [id number] Preventing Kidney Stones If you?ve had a [...] cystine. Last Reviewed Date: 2025 00:00:00 ?? [id number] The [employer]. All rights reserved. This information is not [...] not available in your area, call the [facility] katherine Solis [facility] at [phone]. * Laury OnIR - Yina Kruse RN - 06/25/2025 5:19 PM EDT Images from the original note were not included. [id number] Enoxaparin Injection IMPORTANT WARNING: If you have [...] be awakened, immediately call emergency services at [phone]. What OTHER INFORMATION should I know? Keep [...] of all of the prescription and nonprescription (uipc-hhe-eokbbvu) medicines, vitamins, minerals, and dietary supplements you [...] or pharmacist about specific clinical use. The [place] [employer] represents that the information provided hereunder was formulated with a reasonable standard of care, and in conformity with professional standards in the field. The [place] [employer] makes no representations or warranties, express or implied, including, but not limited to, any implied warranty of merchantability and/or fitness for a particular purpose, with respect to such information and specifically disclaims all such warranties. Users are advised that decisions regarding drug therapy are complex medical decisions requiring the independent, informed decision of an appropriate health team primary care physician, and the information is provided for informational purposes only. The entire monograph for a drug should be reviewed for a thorough understanding of the drug's actions, uses and side effects. The [place] [employer] does not endorse or recommend the use of any drug.The information is not a substitute for medical care. AHFS?? Patient Medication Information?. ?? Copyright, 2023. The [place] [employer]??, [address], [address], [place], [place]. All Rights Reserved. Duplication for commercial use must be authorized by [facility]. Selected Revisions: June 08, 2024. AHFS?? Patient Medication Information?. ?? Copyright, 2024 * [facility] - Yina Kruse RN - 06/25/2025 5:19 PM EDT Images from the original note were not included. [id number] Methocarbamol WHY is this medicine prescribed? Methocarbamol [...] be awakened, immediately call emergency services at [phone]. What OTHER INFORMATION should I know? Keep all appointments with your doctor. Do not let anyone else take your medication. Ask your pharmacist any questions you have about refilling your prescription. Keep a written list of all of the prescription and nonprescription (ycue-evz-eogpzzo) medicines, vitamins, minerals, and dietary supplements you [...] or pharmacist about specific clinical use. The [place] [employer] represents that the information provided hereunder was formulated with a reasonable standard of care, and in conformity with professional standards in the field. The [place] [employer] makes no representations or warranties, express or implied, including, but not limited to, any implied warranty of merchantability and/or fitness for a particular purpose, with respect to such information and specifically disclaims all such warranties. Users are advised that decisions regarding drug therapy are complex medical decisions requiring the independent, informed decision of an appropriate health team primary care physician, and the information is provided for informational purposes only. The entire monograph for a drug should be reviewed for a thorough understanding of the drug's actions, uses and side effects. The [place] [employer] does not endorse or recommend the use of any drug.The information is not a substitute for medical care. AHFS?? Patient Medication Information?. ?? Copyright, 2023. The [place] [employer]??, [address], [address], [place], [place]. All Rights Reserved. Duplication for commercial use must be authorized by [facility]. Selected Revisions: July 04, 2017. AHFS?? Patient Medication Information?. ?? Copyright, 2024 * [facility] - Yina Kruse RN - 06/25/2025 5:19 PM EDT Images from the original note were not included. [id number] Stool Softeners WHY is this medicine prescribed? [...] and out of their sight and reach. [email or web address] Dispose of unneeded medications in a way [...] of all of the prescription and nonprescription (hqzf-tce-mwwliqc) medicines, vitamins, minerals, and dietary supplements you [...] or pharmacist about specific clinical use. The [place] [employer] represents that the information provided hereunder was formulated with a reasonable standard of care, and in conformity with professional standards in the field. The [place] [employer] makes no representations or warranties, express or implied, including, but not limited to, any implied warranty of merchantability and/or fitness for a particular purpose, with respect to such information and specifically disclaims all such warranties. Users are advised that decisions regarding drug therapy are complex medical decisions requiring the independent, informed decision of an appropriate health team primary care physician, and the information is provided for informational purposes only. The entire monograph for a drug should be reviewed for a thorough understanding of the drug's actions, uses and side effects. The [place] [employer] does not endorse or recommend the use of any drug.The information is not a substitute for medical care. AHFS?? Patient Medication Information?. ?? Copyright, 2023. The [place] [employer]??, [address], [address], [place], [place]. All Rights Reserved. Duplication for commercial use must be authorized by [facility]. Selected Revisions: May 09, 2024. AHFS?? Patient Medication Information?. ?? Copyright, 2024 * Laury SolorioMIRTHA - Yina Kruse RN - 06/25/2025 5:19 PM EDT Images from the original note were not included. [id number] Pulmonary Embolism (PE) A pulmonary embolus is [...] cut Last Reviewed Date: 2022 00:00:00 ?? [id number] The [employer]. All rights reserved. This information is not intended as a substitute for professional medical care. Always follow your healthcare professional's instructions. * Laury OnIR - Yina Kruse RN - 06/25/2025 5:19 PM EDT Images from the original note were not included. [id number] Discharge Instructions for Pulmonary Embolism A deep [...] bleeding. Last Reviewed Date: 2024 00:00:00 ?? [id number] The [employer]. All rights reserved. This information is not intended as a substitute for professional medical care. Always follow your healthcare professional's instructions. * Laury [facility] - Yina Kruse RN - 06/25/2025 5:19 PM EDT Images from the original note were not included. [id number] Lactulose WHY is this medicine prescribed? Lactulose [...] of all of the prescription and nonprescription (aukw-bfe-fdyfdoo) medicines, vitamins, minerals, and dietary supplements you [...] or pharmacist about specific clinical use. The [place] [employer] represents that the information provided hereunder was formulated with a reasonable standard of care, and in conformity with professional standards in the field. The [place] [employer] makes no representations or warranties, express or implied, including, but not limited to, any implied warranty of merchantability and/or fitness for a particular purpose, with respect to such information and specifically disclaims all such warranties. Users are advised that decisions regarding drug therapy are complex medical decisions requiring the independent, informed decision of an appropriate health team primary care physician, and the information is provided for informational purposes only. The entire monograph for a drug should be reviewed for a thorough understanding of the drug's actions, uses and side effects. The [place] [employer] does not endorse or recommend the use of any drug.The information is not a substitute for medical care. AHFS?? Patient Medication Information?. ?? Copyright, 2023. The [place] [employer]??, [address], [address], [place], [place]. All Rights Reserved. Duplication for commercial use must be authorized by [facility]. Selected Revisions: December 04, 2023. AHFS?? Patient Medication Information?. ?? Copyright, 2024 * Laury SolorioMARYANN - Yina Kruse RN - 06/25/2025 5:19 PM EDT Images from the original note were not included. [id number] Orchitis Orchitis is inflammation of the testicles. [...] you're feeling better. ? You may use wdyc-ocl-pqosdad medicines to control pain, unless you were [...] testicles. Last Reviewed Date: 2025 00:00:00 ?? [id number] The [employer]. All rights reserved. This information is not intended as a substitute for professional medical care. Always follow your healthcare professional's instructions. * Laury Espino - Yina Kruse RN - 06/25/2025 5:19 PM EDT Images from the original note were not included. 22962 Preventing a Surgical Site Infection A risk [...] of infection. ? Controlled body temperature. A gptpx-soos-oimdqw temperature during or after surgery prevents oxygen [...] and water or with an alcohol-based hand policy writer before and after caring for you. Don?t [...] away. Last Reviewed Date: 2024 00:00:00 ?? [id number] The [employer]. All rights reserved. This information is not intended as a substitute for professional medical care. Always follow your healthcare professional's instructions. * Laury SolorioMIRTHA - Yina Kruse RN - 06/25/2025 5:19 PM EDT Images from the original note were not included. [id number] Acetaminophen IMPORTANT WARNING: Taking too much acetaminophen [...] measuring cup or syringe provided by the pocket setter to measure each dose of the solution [...] and out of their sight and reach. [email or web address]://www.[employer].org Dispose of unneeded medications in a [...] be awakened, immediately call emergency services at [phone]. If someone takes more than the recommended [...] of all of the prescription and nonprescription (lhfw-zis-gkgaqqa) medicines, vitamins, minerals, and dietary supplements you [...] a combination product containing Acetaminophen, Oxycodone) APAP, V-pwrywh-bvez-aminophenol, Paracetamol This report on medications is for your information only, and is not considered individual patient advice. Because of the changing nature of drug information, please consult your physician or pharmacist about specific clinical use. The [place] [employer] represents that the information provided hereunder was formulated with a reasonable standard of care, and in conformity with professional standards in the field. The [place] [employer] makes no representations or warranties, express or implied, including, but not limited to, any implied warranty of merchantability and/or fitness for a particular purpose, with respect to such information and specifically disclaims all such warranties. Users are advised that decisions regarding drug therapy are complex medical decisions requiring the independent, informed decision of an appropriate health team primary care physician, and the information is provided for informational purposes only. The entire monograph for a drug should be reviewed for a thorough understanding of the drug's actions, uses and side effects. The [place] [employer] does not endorse or recommend the use of any drug.The information is not a substitute for medical care. AHFS?? Patient Medication Information?. ?? Copyright, 2023. The [place] [employer]??, [address], [address], [place], [place]. All Rights Reserved. Duplication for commercial use must be authorized by [facility]. Selected Revisions: August 04, 2023. AHFS?? Patient Medication Information?. ?? Copyright, 2024 * Discharge Summary - Bianka Hansen MD - 06/25/2025 4:15 PM EDT Hospitalization Admit Date/Time: 06/12/2025 10:20 AM Admitting Attending: Dyllan Paul Discharge Date: 06/25/25 Discharge Attending Physician: Dyllan Paul MD PCP name and Address: Murray Prajapati MD [address] [facility] [address] / [place] [id number] Referring provider name and address: No referring provider defined for this encounter. Chief Concern, Brief History of Present Illness, and Hospital Course Eber Lowe is a 70 y.o. male with PMH unfavorable intermediate risk prostate cancer, GG3 diffusely on the left, PSA 4.7 who presented to [facility] for planned surgical intervention. They weretaken to [...] a day as needed for muscle spasms. thebgzqrmyxa-tsgn-smiaubhs-folic acid chewable tablet Chew 1 tablet daily. [...] Your Medications These medications were sent to [facility] [place], [place] - [address] [facility] [address] acetaminophen 500 MG tablet enoxaparin 120 MG/0.8ML [...] 06/12/2025 10:18 PM by Raymond Katz APRN 5/9: Reports he is abstinent for 3-4months, then [...] confirm your location ahead of your appointment) [facility] Urology Department Clinic at [facility] [address] [facility] [address], [address] [place] [address] Clinic After Hours [facility] Multidisciplinary Urology Clinic [address] [place] [address] Clinic Outpatient Follow-Up No future appointments. Test [...] Hansen MD Department of Urology, PGY-1 Pager: [phone] I spent >30 minutes of patient care [...] Mobility Bed Mobility Exam: Scooting/Bridging Level of [place]: Contact guard (to scoot EOB in sitting) Physical/Nonphysical Assist: Verbal Cues, Nonverbal cues (demo/gestures), Additional assist utilized for safety, Minimal cues Assistive Device: Bed rails Bed Mobility Exam: Supine to Sit Level of [place]: Stand-by assist Physical/Nonphysical Assist: Verbal Cues, Minimal cues Assistive Device: Bed rails Transfers Transfer Exam: Sit to stand Level of [place]: Stand-by assist Physical/Nonphysical Assist: Nonverbal cues (demo/gestures), Verbal Cues, Minimal cues Assistive Device: Walker, rolling Transfer Exam: Stand to Sit Level of [place]: Stand-by assist Physical/Nonphysical Assist: Nonverbal cues (demo/gestures), [...] provided additional clean abdominal binder. Standardized Assessments [facility] 6-Clicks Mobility Assessment Difficulty patient has turning [...] 3-5 steps with a railing?: A little [facility] 6-Clicks Mobility Assessment Total : 18 Assessment [...] Can consider referral to [facility] for emt intermediate management of cirrhosis. It appears the patient has been getting routine HCC screening through transplant so it would be reasonable to continue follow-up with Transplant and forego a hepatology referral. This can be decided at the discretion of the primary team and the patient. Jairo Campoverde DO PGY-3 [facility] - Internal Medicine Epic Chat preferred; Pager [phone] Cosigned by Nir Aguilar MD at 06/25/2025 [...] resolve due to cirrhosis. The need for assisted lactulose at this point is not known [...] sign off at this time. lease page [phone] with any additional questions, or resident on-call [...] Hansen MD - 06/25/2025 5:41 AM EDT [facility] Urology Inpatient Progress Note Primary Attending: Dyllan [...] Type: Bulb Size (Fr.): 10 Fr. Drain Key Center Size (mL): 100 mL Urethral Catheter Double-lumen;Non-latex 20 Fr. (Active) Placement Date/Time: 06/12/251831 Inserted by: ST Denis, under Dr. aPul's supervision Hand Hygiene Completed: Yes Catheter Type: [...] for analysis - Appreciate Medicine recs for assisted anticoagulation and PE findings - Will discuss [...] Hansen MD Department of Urology, PGY-1 Pager: [phone] Cosigned by Dyllan Paul MD at 06/29/2025 [...] or Concerns: none stated 06/25/2025342 by Gill White RN Outcome: Ongoing, Progressing Flowsheets (Taken 06/24/20251999) [...] Ongoing, Progressing Intervention: Promote Activity and Functional [place] Flowsheets (Taken 06/25/2025344) Activity Assistance Provided: assistance, [...] to Prostate Cancer and Treatment Flowsheets (Taken 06/25/2025344) Supportive Measures: active listening utilized Family/Support System Care: self-care encouraged support provided * Progress Notes - Bianka Hansen MD - 06/24/2025 6:55 PM EDT [facility] Urology Inpatient Progress Note Primary Attending: Dyllan [...] Type: Bulb Size (Fr.): 10 Fr. Drain Key Center Size (mL): 100 mL Urethral Catheter Double-lumen;Non-latex [...] Hansen MD Department of Urology, PGY-1 Pager: [phone] Cosigned by Dyllan Paul MD at 06/29/2025 [...] not included. GME Progress Note Hospital Day: 06/24/25 Subjective: No acute events overnight. 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 Exam - no asterixis - firm abdomen with evidence of ascites - 2+ LE edema * Progress Notes - Sheryl Huerta RN - 06/24/2025 8:26 AM EDT Rx for RW sent to [facility] via [facility] for bedside delivery. No HH acceptance at [...] Monitor Pain and Promote Comfort Flowsheets (Taken 06/24/2025 0614) Pain Management Interventions: medication (see MAR) pillow [...] Progress Notes - Carol Lott I - 06/23/2025 2:04 PM EDT Physical Therapy Treatment Patient Name: Ebre Lowe Today's Date: 06/23/2025 PT Discharge Recommendations: [...] Transfer Exam: Sit to stand Level of [place]: Contact guard Physical/Nonphysical Assist: Nonverbal cues (demo/gestures), Verbal Cues, Minimal cues Assistive Device: Walker, rolling Transfer Exam: Stand to Sit Level of [place]: Contact guard Physical/Nonphysical Assist: Nonverbal cues (demo/gestures), Verbal Cues, Minimal cues Assistive Device: Walker, rolling Transfer Exam: Bed to Chair/Chair to Bed Level of [place]: Minimum assist (75% patient's effort) Physical/Nonphysical Assist: Verbal Cues, Maximal cues, 1 person + 1 person to manage equipment, Nonverbal cues (demo/gestures), Additional assist utilized for safety Type of Transfer: Sidesteps Assistive Device: Hand held assist Toilet Transfer Level of [place]: Contact guard Physical/Nonphysical Assist: Verbal Cues, Nonverbal [...] and safety in home setting. Standardized Assessments [facility] 6-Clicks Mobility Assessment Difficulty patient has turning [...] 3-5 steps with a railing?: A little [facility] 6-Clicks Mobility Assessment Total : 18 Assessment [...] Note Eber Lowe 70 y.o. male CSN: [id number] Admission: 06/12/2025 10:20 AM Primary Problem: Prostate CA (CMS/HCC) Anticipated Discharge Date: 06/26/25 Has Discharge Plans Changed? Medicare Second Notice: Housing Circumstances: Housing Circumstances Action Taken: Medically Ready for Discharge: Additional Comments Per PT/OT pt has PT/OT recs, referral sent to agencies via [employer] for acceptance. POC reviewed with primary team. Refer to primary team's note for details. Pt is not medically readyfor discharge. In??KELLY Baltazar, manager food safety * Consults - Crystal Corley RD - 06/23/2025 12:59 PM EDT Adult Nutrition Evaluation Note Eber Lowe 70 y.o. male CSN: [id number] Room/Bed 227/227A Nutrition evaluation type: follow-up Reason for evaluation: Hospital course: 70 y.o male admitted with prostate cancer. OR 06/12 for robot assisted laparotomy prostatectomy with bilateral pelvic lymph node dissection requiring ex-lap. 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 Meds as able. No further CUFF TURNER MACHINE OPERATOR services indicated at this time. + liquid stools- diff stool test. Past medical/ surgical history: Past Medical History[1] Surgical History[2] Social history: Additional comments: Visited room. TF running at 40 ml/hr. Tolerating per RN. Vitals and Basic Assessment: BP: 130/74 Temp: 36.4 ??C (97.5 ??F) Invasive Ventilator Initiated (ETT/Trach Only): Yes Oxygen Therapy: None (Room air) O2 Delivery Method: Nasal cannula [place] Coma Scale Score: 15 Alex Scale Score: [...] 37.68 Weight Evaluation: Obese-Class 2 (BMI 35-39.9) [place] Body Weight (kg): 72.7 Percent [place] Body Weight: 150 Adjusted Body Weight (kg): [...] Cont with Reg/Cardiac diet. - Cont with Abeil Bid. - Snacks TID. - Record PO Intake, If remains decreased may benefit from supplemental feeds. Nutrition Monitoring and Goals: - Tolerate >80% of goal (No longer appropriate). - Patient will consume >50% of most meals (new) - Monitor weight, labs, and elytes Acuity Level: [address], LD [1] Past Medical History: Diagnosis Date Cancer ([facility]/HCC) january 26, 2025 Cirrhosis ([facility]/HCC) 2021 History of methicillin resistant Staphylococcus aureus [...] pt and family on purchasing options via [employer])) Subjective I will try the scrotal sling after I take a shower. Participants in Care Family/Caregiver Present: Yes Family/Caregiver: Spouse Habilitation Training Specialist: Not Applicable Presentation Oxygen Therapy: None (Room [...] Transfer Exam: Sit to stand Level of [place]: Contact guard Physical/Nonphysical Assist: Nonverbal cues (demo/gestures), Verbal Cues, Minimal cues Assistive Device: Walker, rolling Transfer Exam: Stand to Sit Level of [place]: Contact guard Physical/Nonphysical Assist: Nonverbal cues (demo/gestures), Verbal Cues, Minimal cues Assistive Device: Walker, rolling Toilet Transfer Level of [place]: Contact guard Physical/Nonphysical Assist: Set-up required, Verbal [...] pt and family on purchasing options via [employer])) Plan Continue with established OT plan of [...] Mariely Olson - 06/23/2025 7:22 AM EDT [facility] Urology Inpatient Progress Note Primary Attending: Dyllan [...] Type: Bulb Size (Fr.): 10 Fr. Drain Key Center Size (mL): 100 mL Urethral Catheter Double-lumen;Non-latex [...] Earl MD - 06/22/2025 1:06 PM EDT [facility] Urology Inpatient Progress Note Primary Attending: Dyllan [...] Type: Bulb Size (Fr.): 10 Fr. Drain Key Center Size (mL): 100 mL Urethral Catheter Double-lumen;Non-latex [...] scrotal elevation - Daily AM [facility] - [facility] - Continue cardiac diet - Continue Delirium precaution Adam Earl MD Urology PGY-5 Cosigned by Eleonora Syed MD at 06/23/2025 7:39 AM EDT Associated attestation - Eleonora Syed MD - 06/23/2025 7:39 AM EDT I saw and evaluated the patient with the resident/fellow. I discussed the case with the resident/fellow and agree with the findings and plan as documented. * Progress Notes - Kalyani Kam DO - 06/22/2025 12:01 PM EDT GME Progress [...] Resident PGY-3 Epic Chat Preferred Cosigned by Anna Armas MD at 06/22/2025 3:54 PM EDT [...] care. * Progress Notes - Aurea Rodrigues, ANDRÉS-CUFF TURNER MACHINE OPERATOR - 06/22/2025 10:27 AM EDT Speech Language Pathology Clinical Swallow Initial Evaluation Patient Name: Eber Lowe Age: 70 y.o. Today's Date: 06/22/2025 Recommendations: Regular (IDDSI Level 7) diet w/ thin liquids (Level 0). Meds as able. No further CUFF TURNER MACHINE OPERATOR services indicated at this time. Will sign [...] Feeding Trials: Positionin degrees, upright Feeding assistance: CUFF TURNER MACHINE OPERATOR presented PO trials to patient Consistencies Administered: thin liquid via straw and dry solid consistency [place] Swallow Protocol (Kerry, 2014) - 3 Oz water challenge: pass [...] (Level 0). Meds as able. No further CUFF TURNER MACHINE OPERATOR services indicated at this time. Will sign [...] Earl MD - 06/21/2025 7:16 AM EDT [facility] Urology Inpatient Progress Note Primary Attending: Dyllan [...] Type: Bulb Size (Fr.): 10 Fr. Drain Key Center Size (mL): 100 mL Urethral Catheter Double-lumen;Non-latex [...] labs - Agree with abdominal binder - [facility] - Continue cardiac diet - Continue Delirium precaution Roberto Earl, MS4 Cosigned by Eleonora Syed MD at [...] Ongoing, Progressing * Progress Notes - Eva French, PT - 06/20/2025 12:02 PM EDT PHYSICAL [...] admission Level of Mobility Ambulatory- community Mobility [place] Independent gait without device History of Falls [...] is worn out. Visitors Present Yes Spouse Habilitation Training Specialist (if applicable) N/A OBJECTIVE Vital Signs Pre-Session [...] activity throughout session. BED MOBILITY Level of [place] Physical/Non- physical Assist Adaptive Equipment Utilized Rolling/ Turning Scooting/ Bridging Contact guard (to scoot out to EOB while seated) Nonverbal cues (demo/gestures), Verbal Cues, Minimal cues Other (PRIMARY CARE COORDINATOR) Supine to Sit Moderate assist (50% patient's effort) HOB elevated, Nonverbal cues (demo/gestures), Verbal Cues, Minimal cues, Additional assist utilized for safety Other (PRIMARY CARE COORDINATOR for leverage) Sit to Supine Interventions TRANSFERS Level of [place] Physical/Non- physical Assist Adaptive Equipment Utilized Sit [...] Interventions BALANCE Interventions Postural Appearance Level of [place] Balance Support Interventions Static Sit Contact guard Feet supported Dynamic Sit Minimum assistance Feet supported Dynamic Sitting-Balance: Anterior/Posterior weight shifts, Lateral weight shifts Static Stand Minimum assistance Right upper extremity support, Left upper extremity support (PRIMARY CARE COORDINATOR x 2) Patient stood with PRIMARY CARE COORDINATOR x 2 while being cleaned up + brief change prior to sitting down in chair. Stood ~ 5 min. Dynamic Stand Minimum assistance Left upper extremity support, Right upper extremity support (PRIMARY CARE COORDINATOR x2) Lateral weight shifts, Anterior/Posterior weight shifts AMBULATION Level of [place] Distance Adaptive Equipment Utilized Ambulation Minimum assistance [...] accessed by patient at the following: URL: [email or web address] Access Code: [email or web address] Date: 06/20/25 Prepared by: Eva French, PT ASSESSMENT Patient continues to have [...] in Care Family/Caregiver Present: Yes Family/Caregiver: Spouse Habilitation Training Specialist: Not Applicable Presentation Oxygen Therapy: None (Room [...] Precautions: Abdominal Objective Pain Pain Score (0-10): 04/29 Location: scrotum Intervention: position adjusted, pillow support [...] Mobility Bed Mobility Exam: Scooting/Bridging Level of [place]: Contact guard (to scoot out to EOB while seated) Physical/Nonphysical Assist: Nonverbal cues (demo/gestures), Verbal Cues, Minimal cues Assistive Device: Other (PRIMARY CARE COORDINATOR) Bed Mobility Exam: Supine to Sit Level of [place]: Moderate assist (50% patient's effort) Physical/Nonphysical Assist: HOB elevated, Nonverbal cues (demo/gestures), Verbal Cues, Minimal cues, Additional assist utilized for safety Assistive Device: Other (PRIMARY CARE COORDINATOR for leverage) Transfers Transfer Exam: Sit to stand Level of [place]: Minimum assist (75% patient's effort) Physical/Nonphysical Assist: Nonverbal cues (demo/gestures), Verbal Cues, Minimal cues, Additional assist utilized for safety Assistive Device: Hand held assist Transfer Exam: Stand to Sit Level of [place]: Minimum assist (75% patient's effort) Physical/Nonphysical Assist: Nonverbal cues (demo/gestures), Verbal Cues, Minimal cues, Additional assist utilized for safety Assistive Device: Hand held assist Transfer Exam: Bed to Chair/Chair to Bed Level of [place]: Minimum assist (75% patient's effort) Physical/Nonphysical Assist: [...] below regarding pt individualized HEP: Access Code: [email or web address] URL: [email or web address] Date: 06/20/2025 Prepared by: Exercises - Seated [...] Pt participating in testing at bedside upon CUFF TURNER MACHINE OPERATOR entrance. CUFF TURNER MACHINE OPERATOR spoke with pt's who reported that pt ate and drank yesterday without concerns. She stated that she would discuss participation in the clinical swallow evaluation with pt when he is done with the current testing. CUFF TURNER MACHINE OPERATOR to check back asscheduling allows. Jeff Penaloza MA, CCC-CUFF TURNER MACHINE OPERATOR, [facility] Speech Language Pathologist * Progress Notes - Homar Grajeda - 06/20/2025 10:22 AM EDT [facility] Urology Inpatient Progress Note Primary Attending: Dyllan [...] RUQ Bulb 10 Fr. (Active) Placement Date/Time: [id number] Inserted by: Dyllan Paul MD Hand Hygiene Completed: Yes Tube Number: 1 Location: RUQ Drain Tube Type: Bulb Size (Fr.): 10 Fr. Drain Key Center Size (mL): 100 mL Urethral Catheter Double-lumen;Non-latex [...] AM EDT GME Progress Note Hospital Day: 06/20/25 Subjective: No acute events overnight. Patient [...] saw and evaluated the patient with the medical/CUSTOMS DIRECTOR/PA student. I discussed the case with the medical/CUSTOMS DIRECTOR/PA student and agree with the findings and plan as documented. I personally performed the Examand Medical Decision Making. Time Spent: I personally spent a total of 52 minutes on this encounter. This time includes face to face with patient, counseling and discussion and/or coordination of care. * Care Plan - Adilene Bailon, RN - 06/20/2025 12:43 AM EDT Problem: [...] Intervention: Prevent Skin Injury Flowsheets (Taken 06/19/2025 08) Skin Protection: incontinence pads utilized Goal: Optimal Comfort and Wellbeing Outcome: Ongoing, Progressing Goal: Readiness for Transition of Care Outcome: Ongoing, Progressing Problem: Infection Goal: Absence of Infection Signs and Symptoms Outcome: Ongoing, Progressing Intervention: Prevent or Manage Infection Flowsheets Taken 06/19/2025 08 by Sanjuana Sapp RN Infection Management: aseptic [...] 12:35 PM EDTAssociated Order(s): IP CONSULT TO [facility] Images from the original note were [...] upgraded to ICU level of status and [facility] assisted with care. Hospital Medicine consulted on 06/19 after downgrade out of ICU when [facility] signed off for management of hypernatremia and [...] mg, 2 times daily (0900 & 1500) kqaqvmbyafxd-byfg-hbxwprtd-folic acid (Centrum) chewable tablet 1 tablet, Daily [...] Medicine Resident PGY-3 Epic Chat Preferred; Pager [phone] [1] Past Medical History: Diagnosis Date Cancer [...] 06/19/2025 6:03 PM EDT Associated attestation - Anna Armas MD - 06/19/2025 6:03 PM EDT [...] Note Eber Lowe 70 y.o. male CSN: [id number] Admission: 06/12/2025 10:20 AM Primary Problem: Prostate CA (CMS/HCC) Anticipated Discharge Date: 06/23/25 Has Discharge Plans Changed? Medicare Second Notice: Housing Circumstances: Housing Circumstances Action Taken: Medically Ready for Discharge: Additional Comments POC reviewed with primary team. Refer to primary team's note for details. Pt is not medically readyfor discharge. In??KELLY Baltazar, manager food safety * Consults - Eva Acosta APRN - 06/19/2025 10:34 AM EDTAssociated Order(s): IP CONSULT TO PHYSICAL MEDICINE REHAB Images from the original note were not included. PHYSICAL MEDICINE & REHABILITATION INPATIENT CONSULT NOTE Patient: Eber Lowe : 1955 PCP: Murray Prajapati MD at [address] [place] [address] [address] / [place] [address] Payor: DANIKA / Plan: RAM[employer]NEM [employer] / Product Type: *No Product [...] has now passed bedside swallow eval with CUFF TURNER MACHINE OPERATOR and cleared to advance diet as tolerated [...] his normal when he wakes up initially. Sanders like the propofol was still a factor in confusion. I explained there were a multitude of factors when hospitalized, anesthesia, infection, etc. Pt was placed in [facility] last HS, and pt has no memory of this, or why. Very pleasant, following commands. PMH: Past Medical History[1] PSH: Surgical History[2] Allergies: Allergies[3] Home Medications: Current Outpatient Medications Medication Instructions atorvastatin (LIPITOR) 10 mg, Daily carvedilol (COREG) 3.125 mg, Oral, 2 times daily furosemide (LASIX) 40 mg, 2 times daily (0900 & 1500) jxlcjovoiyfr-fewi-jheghaam-folic acid (Centrum) chewable tablet 1 tablet, Daily potassium chloride CR (Klor-Con) 10 MEQ ER tablet 10 mEq, Daily Vitamin E 1,000 Units, Daily Active Medications: Continuous: Current Continuous Medications[4]Scheduled: Current Scheduled Medications[5]PRN: Current PRN Medications[6] Family history: Family History[7] Social history: Marital Status: , Javon Children: 3 children Previous Residence: lives with in [place], [place] in a 1.5 story house with [...] admission Level of Mobility: Ambulatory- community Mobility [place]: Independent gait without device History of Falls: No ADL Performance: Independent Current: Mobility Bed Mobility Exam: Scooting/Bridging Level of [place]: Moderate assist (50% patient's effort) (progressing to CGA; to scoot anterior/posteriorly) Physical/Nonphysical Assist: Verbal Cues, Moderate cues, Nonverbal cues (demo/gestures), Additionalassist utilized for safety Assistive Device: Other (draw sheet) Bed Mobility Exam: Supine to Sit Level of [place]: Moderate assist (50% patient's effort) Transfer Exam: Sit to stand Level of [place]: Moderate assist (50% patient's effort) (x 2 reps from bed and recliner chair) Physical/Nonphysical Assist: Maximal cues, Verbal Cues, Nonverbal cues (demo/gestures), 1 person + 1 person to manage equipment, Additional assist utilized for safety Assistive Device: Walker, rolling Transfer Exam: Stand to Sit Level of [place]: Moderate assist (50% patient's effort) Physical/Nonphysical Assist: Verbal Cues, Nonverbal cues (demo/gestures), 1 person + 1 person to manage equipment, Maximal cues, Additional assist utilized for safety Assistive Device: Walker, rolling Transfer Exam: Bed to Chair/Chair to Bed Level of [place]: Moderate assist (50% patient's effort) Physical/Nonphysical Assist: [...] Value Units Date/Time Blood Culture (Aerobic/Anaerobet Set) [[id number]] Collected: 06/14/25816 Order Status: Completed Specimen: Blood from Bicep, right Updated: 06/19/25 1001 Culture No growth at day 5 Respiratory Culture and Gram Stain [[id number]] (Abnormal) Collected: 06/14/25817 Order Status: Completed Specimen: Endotracheal Aspirate Updated: [...] Abnormal Ventricular Rate 109 Atrial Rate 109 CO Interval 152 QRSD Interval 86 QT Interval 336 QTC Interval 452 P Hammond -6 R Hammond -1 T Wave Hammond 5 Diagnosis Sinus tachycardia Diagnosis Poor R-wave [...] Center 06/24/2025 2:45 PM Dyllan Paul MD [facility] Mobility Orders Mobility Protocol: General - [...] removed if appropriate, prior to DC. Recommend CUFF TURNER MACHINE OPERATOR services for cognition, ongoing as pt is disoriented. Continue to monitor leukocytosis to ensure stability prior to dc. Consider UA vs ongoing workup andeval for possible HE Thank you for allowing us to participate in the care of your patient. We will continue to follow. Please page [phone] with any questions, or resident on-call if [...] Ken MD - 06/19/2025 8:30 AM EDT [facility] Urology Inpatient Progress Note Primary Attending: Dyllan [...] Type: Bulb Size (Fr.): 10 Fr. Drain Key Center Size (mL): 100 mL Urethral Catheter Double-lumen;Non-latex [...] will defer further management to primary team(s). CCM will sign off. Thank you for involving us in the care of this patient. Please feel free to call or consult for any further needs. * Progress Notes - Mayi Fartun D - 06/18/2025 2:26 PM EDT Occupational Therapy [...] sitting balance. Pt required dep A to loin puller hips due to edema and impaired standingbalance, [...] Wound Orders (From admission, onward) Start Ordered 06/13/251746 Wound ostomy eval and treat Left Pretibial [...] Assessment Red Margins Well-defined edges Cari-Wound Assessment [place] Shape linear, full thickness Wound Length (cm) [...] EDT Referral for acute rehab sent to [facility] via [facility], PM&R consult requested from MD Cai, pt and spouse are agreeable with placement. * Care Plan - Lesia Booth RN - 06/18/2025 10:29 AM EDT Problem: Adult Inpatient Plan of Care Goal: Plan of Care Review Outcome: Ongoing, Progressing Flowsheets (Taken 06/18/2025 0800) Progress: improving Plan of Care Reviewed [...] Critical Care Post-Procedure Diagnose(s): Renal calculi; Prostate CA (CMS/HCC); SCC (squamous cell carcinoma), leg, left; Severe [...] nare 06/13/25 1438 Left nare 4 GCS: [place] Coma Scale Score: 13 Review of Systems [...] Mobility Bed Mobility Exam: Scooting/Bridging Level of [place]: Contact guard (to scoot EOB in sitting) Physical/Nonphysical Assist: Verbal Cues, Nonverbal cues (demo/gestures), Additional assist utilized for safety, Minimal cues Assistive Device: Bed rails Bed Mobility Exam: Supine to Sit Level of [place]: Minimum assist (75% patient's effort) Physical/Nonphysical Assist: Verbal Cues, HOB elevated, Nonverbal cues (demo/gestures), Additional assist utilized for safety, Minimal cues Assistive Device: Bed rails Bed Mobility Exam: Sit to Supine Level of [place]: Moderate assist (50% patient's effort) Physical/Nonphysical Assist: [...] Transfer Exam: Sit to stand Level of [place]: Moderate assist (50% patient's effort) (regressing to maxA) Physical/Nonphysical Assist: Maximal cues, Verbal Cues, Nonverbal cues (demo/gestures), 1 person + 1 person to manage equipment, Additional assist utilized for safety Assistive Device: Walker, rolling Transfer Exam: Stand to Sit Level of [place]: Moderate assist (50% patient's effort) (regressing to maxA) Physical/Nonphysical Assist: Verbal Cues, Nonverbal cues (demo/gestures), 1 person + 1 person to manage equipment, Maximal cues, Additional assist utilized for safety Assistive Device: Walker, rolling Transfer Exam: Bed to Chair/Chair to Bed Level of [place]: Minimum assist (75% patient's effort) Physical/Nonphysical Assist: [...] supine. Standardized Assessments Standardized Assessments Standardized Assessments: [facility] 6-Clicks Mobility Assessment [facility] 6-Clicks Mobility Assessment Difficulty patient has turning [...] 3-5 steps with a railing?: A lot [facility] 6-Clicks Mobility Assessment Total : 17 Assessment [...] Ken MD - 06/18/2025 7:39 AM EDT [facility] Urology Inpatient Progress Note Primary Attending: Dyllan [...] Type: Bulb Size (Fr.): 10 Fr. Drain Key Center Size (mL): 100 mL Urethral Catheter Double-lumen;Non-latex [...] water per ICU -urology will closely follow/ Arianda Vegas MD Cosigned by Dyllan Paul MD [...] Reasons Emotional support; Family support Referral From Manager Enterprise Initiated Spiritual Assessment Support Systems/ Spiritual Resources [place]; Family; Prayer Spiritual Needs Emotional support; Prayer; Spiritual support Spiritual Issues Chronic pain/ illness; Critical Illness Interventions Interventions Provided Emotional support; Family support; Prayer; Identify muslim/ spiritual coping; Introduced Patient/Family to Manager Enterprise Services; Supportive Listening; Spiritual support Outcomes Patient Outcomes Demonstrates lower level of Anxious(ness); Is knowledgeable about Blood Bank Specialist Services; Appreciative of Manager [employer] Support; Identifies spiritual or muslim practices as helpful Follow-Up Last Date of Pastoral Care Contact 06/17/2025 Pastoral Care Comment An introductory visit with patient and family, spouse and son, and provided emotional support. Spouse spoke about patient condition and mentioned that he is doing a lot better today. Manager Enterprise provided a supportive presence, empathic listening, and [...] admitted 06/12/2025 for work-up of Prostate CA ([facility]). Problem List Active Hospital Problems Diagnosis Date Noted Metabolic encephalopathy 06/17/2025 Hypotension 06/13/2025 Hypocalcemia 06/13/2025 Prostate CA ([facility]/HCC) 06/12/2025 On mechanically assisted ventilation ([facility]) 06/12/2025 Anemia 06/12/2025 Hyperlipidemia 06/12/2025 Leukocytosis 06/12/2025 Cirrhosis of liver ([facility]/HCC) 06/12/2025 Hyperbilirubinemia 06/12/2025 Esophageal varices 06/12/2025 Renal calculi 06/12/2025 Hypertension 06/12/2025 Alcohol use disorder 06/12/2025 SCC (squamous cell carcinoma), leg, left 06/12/2025 Electrolyte abnormality 06/12/2025 Severe obesity (BMI 35.0-39.9) with comorbidity ([facility]) 06/03/2025 Procedures 06/12/2025 Procedure(s): PROSTATECTOMY, RADICAL, ROBOT-ASSISTED Past Medical History Patient has a past medical history of Cancer ([facility]/HCC) (january 26, 2025), Cirrhosis ([facility]) (2021),History of methicillin resistant Staphylococcus aureus (2011), [...] minimal verbal conversation throughout; able to state brynn , Robby and Mynor . Participants in Care Family/Caregiver Present: Yes [...] admission Level of Mobility: Ambulatory- community Mobility [place]: Independent gait without device History of Falls: [...] (Difficult to assess due to cognitive deficits. Visitor Information Assistant strength 3/5, otherwise 2-/5 based on observation.) Sensation Light Touch: Right Upper Extremity: Intact Left Upper Extremity Examination LUE ROM Assessment LUE Assessment: Within Functional Limits (AAROM) Manual Muscle Testing - LUE Manual Muscle Testing - LUE: (Difficult to assess due to cognitive deficits. Visitor Information Assistant strength 3/5, otherwise 2-/5 based on observation.) [...] Mobility Bed Mobility Exam: Scooting/Bridging Level of [place]: Moderate assist (50% patient's effort) (progressing to CGA; to scoot anterior/posteriorly) Physical/Nonphysical Assist: Verbal Cues, Moderate cues, Nonverbal cues (demo/gestures), Additionalassist utilized for safety Assistive Device: Other (draw sheet) Bed Mobility Exam: Supine to Sit Level of [place]: Moderate assist (50% patient's effort) Physical/Nonphysical Assist: Verbal Cues, Maximal cues, HOB elevated, Nonverbal cues (demo/gestures), Additional assist utilized for safety Assistive Device: Other (Draw sheet) Transfers Transfer Interventions: PT provided verbal cues for hand placement on therapists elbows, sequencing, and safety with line management. Subsequent stand x 30s with minor lateral wavering without overt LOB. Transfer Exam: Sit to stand Level of [place]: Moderate assist (50% patient's effort) (x 2 reps from bed and recliner chair) Physical/Nonphysical Assist: Maximal cues, Verbal Cues, Nonverbal cues (demo/gestures), 1 person + 1 person to manage equipment, Additional assist utilized for safety Assistive Device: Walker, rolling Transfer Exam: Stand to Sit Level of [place]: Moderate assist (50% patient's effort) Physical/Nonphysical Assist: Verbal Cues, Nonverbal cues (demo/gestures), 1 person + 1 person to manage equipment, Maximal cues, Additional assist utilized for safety Assistive Device: Walker, rolling Transfer Exam: Bed to Chair/Chair to Bed Level of [place]: Moderate assist (50% patient's effort) Physical/Nonphysical Assist: [...] edema. Standardized Assessments Standardized Assessments Standardized Assessments: [facility] 6-Clicks Mobility Assessment [facility] 6-Clicks Mobility Assessment Difficulty patient has turning [...] climbing 3-5 steps with a railing?: Unable [facility] 6-Clicks Mobility Assessment Total : 15 Assessment [...] admitted 06/12/2025 for work-up of Prostate CA ([facility]). Problem List Active Hospital Problems Diagnosis Date Noted Metabolic encephalopathy 06/17/2025 Hypotension 06/13/2025 Hypocalcemia 06/13/2025 Prostate CA ([facility]/HCC) 06/12/2025 On mechanically assisted ventilation ([facility]) 06/12/2025 Anemia 06/12/2025 Hyperlipidemia 06/12/2025 Leukocytosis 06/12/2025 Cirrhosis of liver ([facility]) 06/12/2025 Hyperbilirubinemia 06/12/2025 Esophageal varices 06/12/2025 Renal calculi 06/12/2025 Hypertension 06/12/2025 Alcohol use disorder 06/12/2025 SCC (squamous cell carcinoma), leg, left 06/12/2025 Electrolyte abnormality 06/12/2025 Severe obesity (BMI 35.0-39.9) with comorbidity ([facility]) 06/03/2025 Procedures 06/12/2025 Procedure(s): PROSTATECTOMY, RADICAL, ROBOT-ASSISTED Past Medical History Patient has a past medical history of Cancer ([facility]/HCC) (january 26, 2025), Cirrhosis ([facility]) (2021),History of methicillin resistant Staphylococcus aureus (2011), [...] admission Level of Mobility: Ambulatory- community Mobility [place]: Independent gait without device History of Falls: [...] (Difficult to assess due to cognitive deficits. Visitor Information Assistant strength 3/5, otherwise 2-/5 based on observation.) Sensation Light Touch: Right Upper Extremity: Intact Left Upper Extremity Examination LUE ROM Assessment LUE Assessment: Within Functional Limits (AAROM) Manual Muscle Testing - LUE: (Difficult to assess due to cognitive deficits. Visitor Information Assistant strength 3/5, otherwise 2-/5 based on observation.) [...] Mobility Bed Mobility Exam: Scooting/Bridging Level of [place]: Moderate assist (50% patient's effort) (progressing to CGA; to scoot anterior/posteriorly) Physical/Nonphysical Assist: Verbal Cues, Moderate cues, Nonverbal cues (demo/gestures), Additionalassist utilized for safety Bed Mobility Exam: Supine to Sit Level of [place]: Moderate assist (50% patient's effort) Physical/Nonphysical Assist: Verbal Cues, Maximal cues, HOB elevated, Nonverbal cues (demo/gestures), Additional assist utilized for safety Transfers Transfer Exam: Sit to stand Level of [place]: Moderate assist (50% patient's effort) (x 2 reps from bed and recliner chair) Physical/Nonphysical Assist: Maximal cues, Verbal Cues, Nonverbal cues (demo/gestures), 1 person + 1 person to manage equipment, Additional assist utilized for safety Assistive Device: Walker, rolling Transfer Exam: Stand to Sit Level of [place]: Moderate assist (50% patient's effort) Physical/Nonphysical Assist: Verbal Cues, Nonverbal cues (demo/gestures), 1 person + 1 person to manage equipment, Maximal cues, Additional assist utilized for safety Assistive Device: Walker, rolling Transfer Exam: Bed to Chair/Chair to Bed Level of [place]: Moderate assist (50% patient's effort) Physical/Nonphysical Assist: [...] off bed to don socks. Standardized Assessments [facility] 6-Click Daily Activities Help from Other: Don/Doff Regular Lower Body Clothings: Total Help From Other: Bathing: Total Help From Other: Toileting: Total Help From Other: Don/Doff Upper Body Clothings: A lot Help From Other: Grooming: A lot Help From Other: Eating Meals: Total (NPO, DHT) [facility] 6 Click - Daily Activities Score: [...] Ken MD - 06/17/2025 11:35 AM EDT [facility] Urology Inpatient Progress Note Primary Attending: Dyllan [...] Type: Bulb Size (Fr.): 10 Fr. Drain Key Center Size (mL): 100 mL Urethral Catheter Double-lumen;Non-latex [...] vent as able per ICU team -continue DANLIO drain and martinez catheter -NPO + mIVF [...] Note Eber Lowe 70 y.o. male CSN: [id number] Room/Bed 239/239A Nutrition evaluation type: follow-up Reason [...] Method: Mechanical ventilator Sherri Coma Scale Score: 11 Héctor/Cubbin Pressure Risk [...] 35.21 Weight Evaluation: Obese-Class 2 (BMI 35-39.9) [place] Body Weight (kg): 72.7 Percent [place] Body Weight: 150 Adjusted Body Weight (kg): 82 Estimated Needs: Kcal/ K - 20 Kcal Provided: 1635 - 2180 Kcal Needs Based On: Current weight Gm Protein/ Kg : 1.5 - 2.0 Protein Provided: 109 - 145 Protein Needs Based On: Jefferson weight Metabolic Cart Study Results: Current Nutrition [...] labs, and elytes Acuity Level: [address], LD [1] Past Medical History: Diagnosis [...] Review Outcome: Ongoing, Progressing Flowsheets (Taken 06/17/2025 0800) Progress: improving Plan of Care Reviewed With: spouse Goal: Patient-Specific Goal (Individualized) Outcome: Ongoing, Progressing Goal: Absence of Hospital-Acquired Illness or Injury Outcome: Ongoing, Progressing Intervention: Prevent Skin Injury Flowsheets (Taken 06/17/2025 0800) Skin Protection: incontinence pads utilized silicone foam dressing in place Problem: Infection Goal: Absence of Infection Signs and Symptoms Outcome: Ongoing, Progressing Intervention: Prevent or Manage Infection Flowsheets (Taken 06/17/2025 0800) Infection Management: aseptic technique maintained Fever Reduction/Comfort [...] Intervention: Optimize Nutrition Delivery Flowsheets (Taken 06/17/2025 0800) Nutrition Support Management: weight trending reviewed Note: Tube feeds at goal rate Problem: Restraint, Nonviolent Goal: Absence of Harm or Injury Outcome: Ongoing, Progressing Intervention: Implement Least Restrictive Safety Strategies Flowsheets (Taken 06/17/2025 08) Loan Manager Protection: IV pole/bag removed from visual field tubing secured Diversional Activities: television Intervention: Protect Dignity, Rights and Personal Wellbeing Flowsheets (Taken 06/17/2025 08) Trust Relationship/Rapport: care explained Intervention: Protect Skin and Joint Integrity Flowsheets (Taken 06/17/2025 08) Skin Protection: incontinence [...] Order(s): Critical Care Post-Procedure Diagnose(s): Hyperbilirubinemia; Prostate CA (CMS/HCC); Electrolyte abnormality; SCC(squamous cell carcinoma), leg, left; Severe obesity (BMI 35.0-39.9) with comorbidity (CMS/HCC); Onmechanically assisted ventilation (CMS/HCC); Alcohol use disorder; Leukocytosis, [...] nare 06/13/25 1438 Left nare 3 GCS: [place] Coma Scale Score: 11 Review of Systems [...] Care Review Outcome: Ongoing, Progressing Flowsheets Taken 06/16/20252132 by Nir Murcia RN Plan of Care Reviewed With: family [...] restraints. Order renewed. Gunnar Levin MD * Jovon Renteria - Quentin Almonte - 06/16/2025 8:02 PM [...] technique maintained Taken 06/16/2025 0800 by Agatha Dasivla RN Isolation Precautions: contact droplet Taken 06/12/20252214 [...] Note Eber Lowe 70 y.o. male CSN: [id number] Admission: 06/12/2025 10:20 AM Primary Problem: Prostate CA (CMS/HCC) Fruit Grader reviewed chart and spoke with patient's spouse-Javon [phone] to complete this Initial Case Management Assessment. PCP: Murray Prajapati MD Emergency Contact: Extended Emergency Contact Information Primary Emergency Contact: JAVON LOWE Mobile Relation: Spouse Habilitation Training Specialist needed? No Insurance: Primary Visit Coverage Payer Plan Sponsor Code Group Number Group Name DANIKA GARNICA [facility] [id number] Primary Visit Coverage Subscriber Subscriber ID Subscriber Name Subscriber SSN Subscriber Address [id number] JAVON LOWE J [id number] [place] [address] Patient information: Primary Caregiver: Self Support System: Immediate family Daily Living Activities: Functional Status: Independent Living Arrangements: Spouse/Significant other Type of Residence: Private residence, Single Level [address] [place] [address] Current DME: Equipment Currently Used at Home: none Income Information: Income Source: Retired Housing Circumstances-Z Codes: Patient Referred to: Anticipated Discharge Date: 06/20/25 Patient's Discharge Goal: Patient/Family Anticipates Transition to: home Assistance Available at Discharge: spouse Discharge Transport: spouse Follow Up Transport: spouse Home Health / Home Infusion / Outpatient Dialysis Services: None reported. Living Will/Advance Directive/Power of Model Making Supervisor /Guardian: None reported. Additional Comments: CM introduced herself and explain its role. CM confirmed pt's home address and contact information.Pt lives with spouse in a 1 1/2 level home, doesn't use any DME equipment or have any HH services. Per pt's spouse, she will provide assistance as needed as well as transportation. In??s KELLY Mistry, manager food safety Social Drivers of Health Food Insecurity: No [...] Social Connections: Low Risk (12/08/2023) Received from [employer] ([place], [place], [place], [place]) Family and Community [...] Care Post-Procedure Diagnose(s): Hypocalcemia; Renal calculi; Prostate CA (CMS/HCC); Electrolyte abnormality; SCC (squamous cell carcinoma), leg, left; Severe obesity (BMI 35.0-39.9) with comorbidity (CMS/HCC); Other secondary hypertension; On mechanically assisted ventilation (CMS/[facility]); Alcohol use diso rder; Leukocytosis, unspecified type 06/16/25 Eber Lowe Past 24 hours: PM: adjusted propofol parameters. AM: Off propofol this AM. Tolerating PS this AM 8 40%, however extremely lethargic, minimal movement of [...] rounds. JENNIFER Lee * Hospital Course - [facility] - 06/16/2025 8:04 AM EDT Eber Lowe is a 70 y.o. male with PMH unfavorable intermediate risk prostate cancer, GG3 diffusely on the left, PSA 4.7 who presented to [facility] ED for planned surgical intervention. [...] Ken MD - 06/16/2025 7:49 AM EDT [facility] Urology Inpatient Progress Note Primary Attending: Dyllan [...] Type: Bulb Size (Fr.): 10 Fr. Drain Key Center Size (mL): 100 mL Urethral Catheter Double-lumen;Non-latex [...] -daily AM labs -agree with abdominal binder -[facility] -urology will closely follow -c/w scrotal [...] - 06/15/2025 8:20 PM EDT 06/15/25 Eber Lowe Asked by RN to review and reorder restraints. Chart reviewed and patient visualized. Patient has continued need for restraints. Order renewed. Mick Chance MD * Progress Notes - Shayna Crawford - 06/15/2025 10:59 AM EDT [facility] Urology Inpatient Progress Note Primary Attending: Dyllan [...] Type: Bulb Size (Fr.): 10 Fr. Drain Key Center Size (mL): 100 mL Urethral Catheter Double-lumen;Non-latex [...] -daily AM labs -agree with abdominal binder -[facility] -urology will closely follow -c/w scrotal [...] * Assessment & Plan Note - Corry oDss APRN, DNP - 06/15/2025 9:12 AM EDTAssociated [...] Order(s): Critical Care Post-Procedure Diagnose(s): Prostate CA (CMS/HCC) 06/15/25 Eber Lowe is a 70 y.o. male who presents with Prostate CA (CMS/HCC) Past 24 hours: Mr. Lowe had no acute events overnight. He remains hemodynamically stable on mechanical ventilation with weaning Fio2 requirements. Continue antibiotics and wean FiO2 as able. GCS: [place] Coma Scale Score: 10 Review of Systems [...] PPI Glucose control: GLU: 168 mg/dL (06/15 0025) Spontaneous breathing trials: O2 Delivery Method: Mechanical ventilator Vent Mode: PS/CPAP Invasive Vent Status (ETT, Trach Only): In use Pressure Control Above PEEP (cmH2O): 10 S VT: 500 mL CO SUP: 8 cm H20 Insp Time (sec): 0.9 sec Vent Mode: PS/CPAP FiO2 (%): 80 % S RR: 14 S VT: 500 mL CO SUP: 8 cm H20 MAP (cm H2O): [...] Ken MD - 06/14/2025 11:56 AM EDT [facility] Urology Inpatient Progress Note Primary Attending: Dyllan [...] Type: Bulb Size (Fr.): 10 Fr. Drain Key Center Size (mL): 100 mL Urethral Catheter Double-lumen;Non-latex [...] -daily AM labs -agree with abdominal binder -[facility] -urology will closely follow Ariadna [place] [...] Note Eber Lowe 70 y.o. male CSN: [id number] Room/Bed 239/239A Nutrition evaluation type: follow-up Reason [...] Mechanical ventilator Sherri Coma Scale Score: 10 Héctor/Cubbin Pressure Risk [...] 35.43 Weight Evaluation: Obese-Class 2 (BMI 35-39.9) [place] Body Weight (kg): 72.7 Percent [place] Body Weight: 150 Adjusted Body Weight (kg): 82 Estimated Needs: Kcal/ K - 20 Kcal Provided: 1635 - 2180 Kcal Needs Based On: Current weight Gm Protein/ Kg : 1.5 - 2.0 Protein Provided: 109 - 145 Protein Needs Based On: [place] weight Metabolic Cart Study Results: Current Nutrition [...] 70 y.o. male admitted for Prostate CA ([facility]). Pharmacy was consulted for management of vancomycin [...] monitor therapy with primary service. Thank you, Sarah Bob, PharmD OR [facility] Available via Epic Secure Chat * Care Plan - Belkys Dowell RN - 06/14/2025 10:37 AM EDT Problem: Adult Inpatient Plan of Care Goal: Plan of Care Review Outcome: Ongoing, Progressing Flowsheets (Taken 06/14/2025 1033) Progress: no change Plan of Care Reviewed [...] Pain and Promote Comfort Flowsheets (Taken 06/14/2025 1033) Pain Management Interventions: pillow support provided Goal: Readiness for Transition of Care Outcome: Ongoing, Progressing Intervention: Mutually Develop Transition Plan Flowsheets (Taken 06/14/2025 1033) Patient/Family Anticipates Transition to: home Problem: Infection Goal: Absence of Infection Signs and Symptoms Outcome: Ongoing, Progressing Intervention: Prevent or Manage Infection Flowsheets (Taken 06/14/2025 0740) Isolation Precautions: precautions maintained Problem: Mechanical Ventilation Invasive Goal: Effective Communication Outcome: Ongoing, Progressing Intervention: Ensure Effective Communication Flowsheets (Taken 06/14/2025 1033) Trust Relationship/Rapport: care explained Goal: Optimal Device Function Outcome: Ongoing, Progressing Intervention: Optimize Device Care and Function Flowsheets (Taken 06/14/2025 0740) Oral Care: mouth suctioned Goal: Mechanical Ventilation Liberation Outcome: Ongoing, Progressing Intervention: Promote Extubation and Mechanical Ventilation Liberation Flowsheets (Taken 06/14/2025 1033) Sleep/Rest Enhancement: relaxation techniques promoted Medication Review/Management: medications reviewed Goal: Optimal Nutrition Delivery Outcome: Ongoing, Progressing Intervention: Optimize Nutrition Delivery Flowsheets (Taken 06/14/2025 1033) Nutrition Support Management: weight trending reviewed Goal: Absence of Device-Related Skin and Tissue Injury Outcome: Ongoing, Progressing Intervention: Maintain Skin and Tissue Health Flowsheets (Taken 06/14/2025 1033) Device Skin Pressure Protection: absorbent pad utilized/changed [...] Problem(s): Severe obesity (BMI 35.0-39.9) with comorbidity (CMS/[facility]) Complicates all aspects of care. * Assessment [...] Order(s): Critical Care Post-Procedure Diagnose(s): Prostate CA (CMS/HCC) 06/14/25 Eber Lowe is a 70 y.o. male who presents with Prostate CA (CMS/HCC) Past 24 hours: Mr. Lowe had increased oxygen requirements overnight, otherwise no acute changes. He remains hemodynamically stable on mechanical ventilation. FiO2 able to be weaned after decreasing PEEP, likely some component of shunting. Pancultures sent. Will continue to decrease FiO2 as able. GCS: [place] Coma Scale Score: 10 Review of Systems [...] Problem(s): Leukocytosis WBC Count (10*3/uL) Date/Time Value 06/12/20257 11.67 (H) Multifactorial etiology in setting of [...] Critical Care Post-Procedure Diagnose(s): Hypocalcemia; Hyperbilirubinemia; Prostate CA (CMS/HCC); Electrolyte abnormality; On mechanically assisted ventilation (CMS/HCC); Alcohol use [...] 06/12/25 2125 Radial less than 1 GCS: [place] Coma Scale Score: 10 Review of Systems [...] ear normal. Nose: Nose normal. Mouth/Throat: Lips: [place]. Mouth: Mucous membranes are moist. Pharynx: Oropharynx [...] aroused. Results Review {Vanishing Link Review Results :[id number] I have reviewed the latest lab and [...] Note Eber Lowe 70 y.o. male CSN: [id number] Room/Bed 239/239A Nutrition evaluation type: assessment Reason for evaluation: [facility] Hospital course: 70 y.o male admitted with [...] Mechanical ventilator Sherri Coma Scale Score: 10 Héctor/Cubbin Pressure Risk Score: 26 Edema: Generalized, Right [...] 35.43 Weight Evaluation: Obese-Class 2 (BMI 35-39.9) [place] Body Weight (kg): 72.7 Percent [place] Body Weight: 150 Adjusted Body Weight (kg): 82 Estimated Needs: Kcal/ K - 20 Kcal Provided: 1635 - 2180 Kcal Needs Based On: Current weight Gm Protein/ Kg : 1.5 - 2.0 Protein Provided: 109 - 145 Protein Needs Based On: Jefferson weight Metabolic Cart Study Results: Current Nutrition [...] AM EDT Occupational Therapy Attempt Patient Name: Ebre Lowe Today's Date: 06/13/2025 Patient was attempted to be seen by occupational therapy 06/13/2025 for OT Evaluation however Patient intubated and sedated. Occupational therapy team will follow-up when medically appropriate. Written by Michelle Moon on 06/13/25 at 9:11 AM. * Progress Notes - Gregory Galicia MD - 06/13/2025 9:00 AM EDT [facility] Urology Inpatient Progress Note Primary Attending: Dyllan [...] Type: Bulb Size (Fr.): 10 Fr. Drain Key Center Size (mL): 100 mL Urethral Catheter Double-lumen;Non-latex [...] -daily AM labs -agree with abdominal binder -[facility] -urology will closely follow Gregory Galicia [...] sedated, CM will return to initiate IA/SDOH. In??KELLY Baltazar, manager food safety * Procedures - Tati Pedroza RN - [...] EDT Associated Problem(s): On mechanically assisted ventilation ([facility]/HCC) (Resolved 06/18/2025) Intubated for procedure Wean FiO2 [...] Order(s): Critical Care Post-Procedure Diagnose(s): Prostate CA (CMS/HCC) 06/12/25 Eber Lowe Consulted for critical care management by Urology / Humberto, Dyllan Saenz MD. HPI Eber Lowe is a 70 y.o. male who presents with Prostate CA (CMS/HCC).Patient is post-op day * Day of Surgery * with Urology. 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 [facility] consulted d/t desaturation event and for ongoing [...] by mouth daily. Yes Albert Salinas MD nojalkgdwicr-dmzw-fxbenamm-folic acid (Centrum) chewable tablet Chew 1 tablet daily. Yes Albert Salinas MD potassium chloride CR (Klor-Con) 10 MEQ ER tablet Take 1 tablet by mouth daily. Do not crush, chew,or split. Yes Albert Salinas MD clobetasol (Temovate) 0.05 % external [...] Patient not taking: Reported on 04/29/2025 06/06/25 Provider, MD Albert mupirocin (Bactroban) 2 % ointment 03/26/25 06/06/25 Provider, MD Albert Social History: Pt has reports that he [...] above or in HPI. Vital signs: Vitals: 06/12/25 2155 BP: Pulse: 76 Resp: 12 Temp: SpO2: [...] ear normal. Nose: Nose normal. Mouth/Throat: Lips: [place]. Mouth: Mucous membranes are moist. Pharynx: Oropharynx [...] are consistent with and integrated into the [place] [employer] Liver Diseases [...] PM EDT Operative Note Date: 06/12/25 Location: [facility] Name: Eber Lowe, : 1955, Diagnoses: Pre-op Diagnosis Prostate CA (CMS/HCC) Post-op Diagnosis Prostate CA (CMS/HCC) Procedure(s): Robotic assisted laparoscopic radical prostatectomy Robotic assisted laparoscopic bilateral pelvic lymph node dissection Laparotomy with ligation of dilated umbilical veins Attending Surgeon(s): * Dyllan Paul - Primary Social Contact Worker(s): * Adam Earl MD - Resident - [...] 20 Fr. (Active) Site Assessment Clean;Skin intact 06/15/25 08 CAUTI: Collection Container Standard drainage bag;System closed;Collection container below bladder and tubing free of kinks 06/15/25799 CAUTI: Securement Method Securing device (Describe) 06/15/25799 CAUTI: Specimen Collection Port Covered with Alcohol Cap Yes 06/15/25799 CAUTI: Urinary Catheter Necessity Yes, meets criteria 06/15/25799 CAUTI: Urinary Catheter Necessity Reasons Q1-2 hourly urine output of critically ill patient 06/15/25799 Output (mL) 125 mL 06/15/25799 [REMOVED] Urethral Catheter Double-lumen;Non-latex 18 Fr. (Removed) [...] who is having surgery for Prostate CA ([facility]). Narrative: The patient is brought the operating [...] points were confirmed we placed an 18 Hebrew catheter into the bladder and the bladder [...] we came around underneath the bladder again because the prostate size it was difficult to incise [...] run as well with a new 20 Hebrew catheter being placed into the bladder before [...] 06/12/2025 3:20 PM EDT Date: 06/12/25 Location: [facility] Name: Eber Lowe, : 1955, Diagnoses: Pre-op Diagnosis Prostate CA (CMS/HCC) Post-op Diagnosis Prostate CA (CMS/HCC) Procedure(s): Robotic-assisted laparoscopic radical prostatectomy Bilateral pelvic lymph node dissection Attending Surgeon(s): * Dyllan Paul - Primary Social Contact Worker(s): * Adam Earl MD - Resident - [...] from the original note were not included. [facility] Urology History and Physical 06/12/25 HPI: Eber [...] % shampoo Melatonin 10 mg, Nightly PRN svtygaoaujah-ulkm-lyrbtpmu-folic acid (Centrum) chewable tablet 1 tablet, Daily [...] since 05/13/25 Location Start Date End Date [facility]) 06/01/25 06/02/25 ROS: 14 point review of [...] Description 08/22/2025 9:00 AM EDT Office Visit [facility] Nephrology, Bone & Mineral Metabolism [address], [address] [place] [address] Kathia Watkins MD [address] [place] [address] 08/28/2025 8:50 AM EDT Hospital Encounter [facility] [address] [place] [address] Dyllan Paul MD [address] [place] [address] 08/28/2025 8:50 AM EDT Anesthesia Event [facility] [address] [place] [address] Paige Starkey, TORREY [address] [place] [address] 08/28/2025 8:50 AM EDT - 08/28/2025 10:35 AM EDT Surgery [facility] [address] [place] [address] Dyllan Paul MD [address] [place] [address] URETEROSCOPY, WITH LASER LITHOTRIPSY [12387 (CPT )] 10/28/2025 8:00 AM EST Office Visit [facility] [address] [place], [place] [id number] Pavan Aldrich MD [address] [place] [address] Scheduled Procedures Name Priority Associated Diagnoses Date/Ti me URETEROSCOPY, WITH LASER LITHOTRIPSY Ureteral stone 08/28/2025 8:50 AM EDT Scheduled Referrals Name Type Priority Associated Diagnoses Orde r Schedule Discharge Ambulatory referral to NON Home Health Outpatient Referral Routine Prostate CA (CMS/HCC) 1 Occurrences starting 06/23/2025 until 12/25/2026 Discharge Ambulatory referral to NON Physical Therapy Outpatient Referral Routine H/O prostatectomy Expected: 06/25/2025 (Approximate), Expires: 12/27/2026 Discharge Ambulatory referral to NON Occupational Therapy Outpatient Referral Routine H/O prostatectomy [...] 2:16 PM EDT CREATININE, RANDOM URINE Routine 025 2:16 PM EDT URINALYSIS WITH REFLEX MICROSCOPIC [...] UNSOLICITED RESULTS Routine 06/18/2025 12:29 PM EDT CO CRITICAL CARE, E/M 30-74 MINUTES Routine 06/18/2025 [...] AMMONIA, PLASMA Routine 06/17/2025 8:55 AM EDT CO CRITICAL CARE, E/M 30-74 MINUTES Routine 06/17/2025 8:36 AM EDT Prostate CA (CMS/HCC) Alcohol use disorder On mechanically assisted ventilation (CMS/HCC) Leukocytosis, unspecified type Hyperbilirubinemi a Electrolyte abnormality Severe obesity (BMI 35.0-39.9) with comorbidity (CMS/HCC) SCC (squamous cell carcinoma), leg, left XR [...] UNSOLICITED RESULTS Routine 06/16/2025 11:40 AM EDT CO CRITICAL CARE, E/M 30-74 MINUTES Routine 06/16/2025 10:30 AM EDT Prostate CA ([facility]) Alcohol use disorder On mechanically assisted ventilation ([facility]) Leukocytosis, unspecified type Hypocalcemia Electrolyte abnormality Severe obesity (BMI 35.0-39.9) with comorbidity ([facility]) SCC (squamous cell carcinoma), leg, left Renal [...] RANDOM, PLASMA Routine 06/15/2025 11:38 AM EDT CO CRITICAL CARE, E/M 30-74 MINUTES Routine 06/15/2025 9:09 AM EDT Prostate CA ([facility]) END TIDAL CO2 MONITORING Routine 025 8:00 [...] PANEL, ARTERIAL Timed 2024 12:09 PM EDT CO CRITICAL CARE, E/M 30-74 MINUTES Routine 06/14/2025 [...] EDT END TIDAL CO2 MONITORING Routine 8:00 PM EDT WOUND OSTOMY EVAL AND [...] PANEL, ARTERIAL Timed 2024 11:30 AM EDT CO CRITICAL CARE, ADDL 30 MIN Routine 06/13/2025 10:48 AM EDT Prostate CA (CMS/HCC) Alcohol use [...] PANEL, ARTERIAL Routine 2024 10:47 PM EDT CO CRITICAL CARE, ADDL 30 MIN Routine 06/12/2025 10:22 PM EDT Prostate CA (CMS/HCC) CO CRITICAL CARE, ADDL 30 MIN Routine 06/12/2025 10:22 PM EDT Prostate CA (CMS/HCC) CO CRITICAL CARE, ADDL 30 MIN Routine 06/12/2025 [...] PM EDT END TIDAL CO2 MONITORING Routine 025 9:07 PM EDT END TIDAL CO2 MONITORING Routine 025 9:07 PM EDT END TIDAL CO2 MONITORING Routine 025 9:07 PM EDT SBT - SPONTANEOUS BREATHING [...] 06/12/20 6:07 PM EDT Prostate CA (CMS/HCC) CO LAP,PROSTATECTOMY,RADICAL ,W/NERVE SPARE,INCL ROBOTIC 06/12/2025 2:26 PM [...] following split bolus administration of IV contrast, [id number], 150 mL. Reformatted images in the coronal [...] in the right mid ureter (series 3 ). Punctate bilateral nonobstructing renal calculi are also [...] Mass 394 mg 06/28/2025 4:02 PM EDT [employer] [employer] Description See Note 06/28/2025 4:02 PM EDT [employer] Composition See Note 06/28/2025 4:02 PM EDT [employer] Calculus Non-blood Collection / Unknown 06/25/2025 7:00 AM EDT 06/25/2025 8:10 AM EDT Narrative [employer] - 06/28/2025 4:02 PM EDT Specimen consists [...] composition determined by FTIR analysis. Performed By: [employer] [address] [place] [id number] Plating Technician: Sotero Banuelos MD, PhD CLIA Number: [id number] us Dyllan Paul MD LAB REF LAB BLOOD AND FLUID O RD Final Result [facility]ARKLEY) [address] [place] [address] * (ABNORMAL) Hemogram (CBC) (06/25/2025 5:50 AM EDT) [facility] Signature WBC Count 15.32(H) 3.70 - 10.30 10*3/uL LAB HEMATOLOGY METHOD 06/25/2025 6:59 AM EDT [facility] RBC Count 3.44(L) 4.60 - 6.10 10*6/uL LAB HEMATOLOGY METHOD 06/25/2025 6:59 AM EDT [facility] HGB 11.2(L) 13.7 - 17.5 g/dL LAB HEMATOLOGY METHOD 06/25/2025 6:59 AM EDT [facility] HCT 32.7(L) 40.0 - 51.0 % LAB HEMATOLOGY METHOD 06/25/2025 6:59 AM EDT [facility] Platelet Count 114(L) 155 - 369 10*3/uL LAB HEMATOLOGY METHOD 06/25/2025 6:59 AM EDT [facility] MCV 95 79 - 98 fL LAB HEMATOLOGY METHOD 06/25/2025 6:59 AM EDT [facility] MCH 32.6(H) 26.0 - 32.0 pg LAB HEMATOLOGY METHOD 06/25/2025 6:59 AM EDT [facility] MCHC 34.3 30.7 - 35.5 g/dL LAB HEMATOLOGY METHOD 06/25/2025 6:59 AM EDT [facility] RDW 16.7(H) 11.5 - 14.5 % LAB HEMATOLOGY METHOD 06/25/2025 6:59 AM EDT [facility] MPV 11.7 8.8 - 12.5 fL LAB HEMATOLOGY METHOD 06/25/2025 6:59 AM EDT [facility] nRBC 0.0 <=0.0 per 100 WBCs LAB HEMATOLOGY METHOD 06/25/2025 6:59 AM EDT [facility] Blood Venous blood specimen / Unknown Venipuncture / Unknown 06/25/2025 5:50 AM EDT 06/25/2025 6:48 AM EDT us Dyllan Paul MD LAB BLOOD ORDERABLES Final Re sult [facility] [address] [place] [address] * (ABNORMAL) Comprehensive metabolic panel (06/25/2025 5:50 AM EDT) Glucose, Plasma 84 74 - 99 mg/dL 06/25/2025 7:20 AM EDT [facility] BUN, Plasma 30(H) 8 - 23 mg/dL 06/25/2025 7:20 AM EDT [facility] Creatinine, Plasma 1.14 0.70 - 1.20 mg/dL 06/25/2025 7:20 AM EDT [facility] BUN/Creatinine Ratio 26 06/25/2025 7:20 AM EDT [facility] Sodium, Plasma 134(L) 136 - 145 mmol/L 06/25/2025 7:20 AM EDT [facility] Potassium, Plasma 3.4(L) 3.6 - 4.9 mmol/L 06/25/2025 7:20 AM EDT [facility] Chloride, Plasma 100 97 - 107 mmol/L 06/25/2025 7:20 AM EDT [facility] CO2, Plasma 26 22 - 29 mmol/L 06/25/2025 7:20 AM EDT [facility] Anion Gap 8 6 - 16 mmol/L 06/25/2025 7:20 AM EDT [facility] Total Calcium, Plasma 8.1(L) 8.9 - 10.2 mg/dL 06/25/2025 7:20 AM EDT [facility] Total Protein 4.5(L) 6.3 - 7.9 g/dL 06/25/2025 7:20 AM EDT [facility] Albumin, Plasma 2.4(L) 3.5 - 5.2 g/dL 06/25/2025 7:20 AM EDT [facility] AST, Plasma 77(H) 10 - 50 U/L 06/25/2025 7:20 AM EDT [facility] ALT, Plasma 45 10 - 50 U/L 06/25/2025 7:20 AM EDT [facility] Alkaline Phosphatase, Plasma 129(H) 40 - 115 U/L 06/25/2025 7:20 AM EDT [facility] Total Bilirubin, Plasma 1.7(H) 0.2 - 1.1 mg/dL 06/25/2025 7:20 AM EDT [facility] eGFRcr 69.2 mL/min/1.7 3m*2 06/25/2025 7:20 AM EDT [facility] Comment:Reported eGFRcr in m L/min/1.73m2 is based the CKD-EPI 2020 equation that does not use a race coefficient. Blood Venous blood specimen / Unknown Venipuncture / Unknown 06/25/2025 5:50 AM EDT 06/25/2025 6:48 AM EDT Dyllan Paul MD LAB BLOOD ORDERABLES Final Re sult Performing Organization Address City/[facility]/ZIP Co de Phone Number [facility] [address] [place] [address] * Phosphorus (06/25/2025 5:50 AM EDT) Phosphorus, Plasma 3.5 2.5 - 4.5 mg/dL 06/25/2025 7:20 AM EDT [facility] Blood Venous blood specimen / Unknown Venipuncture / Unknown 06/25/2025 5:50 AM EDT 06/25/2025 6:48 AM EDT us Dyllan Paul MD LAB BLOOD ORDERABLES Final Re sult [facility] [address] [place] [address] * Magnesium (06/25/2025 5:50 AM EDT) Magnesium, Plasma 2.2 1.9 - 2.4 mg/dL 06/25/2025 7:20 AM EDT [facility] Blood Venous blood specimen / Unknown Venipuncture / Unknown 06/25/2025 5:50 AM EDT 06/25/2025 6:48 AM EDT us Dyllan Paul MD LAB BLOOD ORDERABLES Final Re sult [facility] [address] [place] [address] * VAS US Venous Duplex Lower Extremity [...] Eber Gilbert MD on 06/24/2025 4:56 PM Dyllan Paul MD CV VASCULAR PROCEDURES Final [...] with the final edited report. Drafted by Shanqiue Arceo RVT on 06/24/2025 3:17 PM Final report signed by Eber Gilbert MD on 06/24/2025 4:57 PM us Dyllan Paul MD CV VASCULAR PROCEDURES Final Result * Potassium level repeated 2 hours after the total replacement is completed (06/24/2025 12:35 PM EDT) Pathologist [facility] Potassium, Plasma 3.6 3.6 - 4.9 mmol/L 06/24/2025 1:21 PM EDT [facility] Blood Venous blood specimen / Unknown Venipuncture / Unknown 06/24/2025 12:35 PM EDT 06/24/2025 12:58 PM EDT us Camden Hilario MD LAB BLOOD ORDERABLES Final Result [facility] [address] [place] [address] * Peripheral blood smear, pathologist interpretation (06/24/2025 2:14 AM EDT) Pathologist [facility] Clinical Diagnosis, Peripheral Smear Leukocytosis, recent surgery (prostatectomy for prostate cancer), history of cirrhosis LAB HEMATOLOGY METHOD 06/24/2025 3:21 PM EDT [facility] Interpretation , Peripheral Smear Moderate leukocytosis with neutrophilia, left shift and toxic granulations. Few atypical small lymphocytes with mature condensed chromatin. Mild anemia with anisocytosis. Mild thrombocytopeni a. See comment 06/24/2025 3:21 PM EDT [facility] Pathologist Signature, Peripheral Smear 06/24/2025 3:21 PM EDT [facility] Comment:Reviewed by: Sue Stapleton MD Blood Venous blood specimen / Unknown Venipuncture / Unknown 06/24/2025 2:14 AM EDT 06/24/2025 2:19 AM EDT Narrative [facility] - 06/24/2025 3:21 PM EDT The lymphocyte morphology is concerning for chronic lymphoproliferative disorder. A flow cytometry immunophenotyping is suggested, if clinically indicated. us Dyllan Paul MD LAB PATHOLOGY ORDERABLES Francia lezama Result [facility] [address] [place] [address] * (ABNORMAL) CBC and differential (06/24/2025 2:14 AM EDT) WBC Count 20.07(H) 3.70 - 10.30 10*3/uL LAB HEMATOLOGY METHOD 06/24/2025 3:40 AM EDT [facility] RBC Count 3.59(L) 4.60 - 6.10 10*6/uL LAB HEMATOLOGY METHOD 06/24/2025 3:40 AM EDT [facility] HGB 11.8(L) 13.7 - 17.5 g/dL LAB HEMATOLOGY METHOD 06/24/2025 3:40 AM EDT [facility] HCT 34.1(L) 40.0 - 51.0 % LAB HEMATOLOGY METHOD 06/24/2025 3:40 AM EDT [facility] Platelet Count 128(L) 155 - 369 10*3/uL LAB HEMATOLOGY METHOD 06/24/2025 3:40 AM EDT [facility] MCV 95 79 - 98 fL LAB HEMATOLOGY METHOD 06/24/2025 3:40 AM EDT [facility] MCH 32.9(H) 26.0 - 32.0 pg LAB HEMATOLOGY METHOD 06/24/2025 3:40 AM EDT [facility] MCHC 34.6 30.7 - 35.5 g/dL LAB HEMATOLOGY METHOD 06/24/2025 3:40 AM EDT [facility] RDW 16.2(H) 11.5 - 14.5 % LAB HEMATOLOGY METHOD 06/24/2025 3:40 AM EDT [facility] MPV 11.2 8.8 - 12.5 fL LAB HEMATOLOGY METHOD 06/24/2025 3:40 AM EDT [facility] nRBC 0.0 <=0.0 per 100 WBCs LAB HEMATOLOGY METHOD 06/24/2025 3:40 AM EDT [facility] Differential Type Automated LAB HEMATOLOGY METHOD 06/24/2025 3:40 AM EDT [facility] Neutrophils % 45 % LAB HEMATOLOGY METHOD 06/24/2025 3:40 AM EDT [facility] Lymphocytes % 39 % LAB HEMATOLOGY METHOD 06/24/2025 3:40 AM EDT [facility] Monocytes % 9 % LAB HEMATOLOGY METHOD 06/24/2025 3:40 AM EDT [facility] Eosinophils % 5 % LAB HEMATOLOGY METHOD 06/24/2025 3:40 AM EDT [facility] Basophils % 1 % LAB HEMATOLOGY METHOD 06/24/2025 3:40 AM EDT [facility] Immature Granulocytes % 1 % LAB HEMATOLOGY METHOD 06/24/2025 3:40 AM EDT [facility] Neutrophils Absolute 9.32(H) 1.60 - 6.10 10*3/uL LAB HEMATOLOGY METHOD 06/24/2025 3:40 AM EDT [facility] Lymphocytes Absolute 7.73(H) 1.20 - 3.90 10*3/uL LAB HEMATOLOGY METHOD 06/24/2025 3:40 AM EDT [facility] Monocytes Absolute 1.80(H) 0.30 - 0.90 10*3/uL LAB HEMATOLOGY METHOD 06/24/2025 3:40 AM EDT [facility] Eosinophils Absolute 0.90(H) 0.00 - 0.50 10*3/uL LAB HEMATOLOGY METHOD 06/24/2025 3:40 AM EDT [facility] Basophils Absolute 0.17(H) 0.00 - 0.10 10*3/uL LAB HEMATOLOGY METHOD 06/24/2025 3:40 AM EDT [facility] Immature Granulocytes Absolute 0.15(H) 0.00 - 0.06 10*3/uL LAB HEMATOLOGY METHOD 06/24/2025 3:40 AM EDT [facility] Blood Venous blood specimen / Unknown Venipuncture / Unknown 06/24/2025 2:14 AM EDT 06/24/2025 2:19 AM EDT Narrative [facility] - 06/24/2025 3:40 AM EDT Therapeutic decision making should be based on absolute values, rather than percentages. us Dyllan Palu MD LAB BLOOD ORDERABLES Final Re sult [facility] [address] [place] [address] * (ABNORMAL) Comprehensive metabolic panel (06/24/2025 2:14 AM EDT) Glucose, Plasma 105(H) 74 - 99 mg/dL 06/24/2025 2:46 AM EDT [facility] BUN, Plasma 33(H) 8 - 23 mg/dL 06/24/2025 2:46 AM EDT [facility] Creatinine, Plasma 1.20 0.70 - 1.20 mg/dL 06/24/2025 2:46 AM EDT [facility] BUN/Creatinine Ratio 28 06/24/2025 2:46 AM EDT [facility] Sodium, Plasma 135(L) 136 - 145 mmol/L 06/24/2025 2:46 AM EDT [facility] Potassium, Plasma 3.3(L) 3.6 - 4.9 mmol/L 06/24/2025 2:46 AM EDT [facility] Chloride, Plasma 101 97 - 107 mmol/L 06/24/2025 2:46 AM EDT [facility] CO2, Plasma 24 22 - 29 mmol/L 06/24/2025 2:46 AM EDT [facility] Anion Gap 10 6 - 16 mmol/L 06/24/2025 2:46 AM EDT [facility] Total Calcium, Plasma 8.3(L) 8.9 - 10.2 mg/dL 06/24/2025 2:46 AM EDT [facility] Total Protein 4.9(L) 6.3 - 7.9 g/dL 06/24/2025 2:46 AM EDT [facility] Albumin, Plasma 2.5(L) 3.5 - 5.2 g/dL 06/24/2025 2:46 AM EDT [facility] AST, Plasma 82(H) 10 - 50 U/L 06/24/2025 2:46 AM EDT [facility] Comment:Hemolyzed, result ma y be falsely increased. ALT, Plasma 50 10 - 50 U/L 06/24/2025 2:46 AM EDT [facility] Alkaline Phosphatase, Plasma 142(H) 40 - 115 U/L 06/24/2025 2:46 AM EDT [facility] Total Bilirubin, Plasma 1.7(H) 0.2 - 1.1 mg/dL 06/24/2025 2:46 AM EDT [facility] eGFRcr 65.1 mL/min/1.7 3m*2 06/24/2025 2:46 AM EDT [facility] Comment:Reported eGFRcr in m L/min/1.73m2 is based the CKD-EPI 2020 equation that does not use a race coefficient. Blood Venous blood specimen / Unknown Venipuncture / Unknown 06/24/2025 2:14 AM EDT 06/24/2025 2:19 AM EDT Dyllan Paul MD LAB BLOOD ORDERABLES Final Re sult Performing Organization Address City/[facility]/ZIP Co de Phone Number [facility] [address] [place] [address] * Phosphorus (06/24/2025 2:14 AM EDT) Phosphorus, Plasma 3.4 2.5 - 4.5 mg/dL 06/24/2025 2:46 AM EDT [facility] Blood Venous blood specimen / Unknown Venipuncture / Unknown 06/24/2025 2:14 AM EDT 06/24/2025 2:19 AM EDT us Dyllan Paul MD LAB BLOOD ORDERABLES Final Re sult Performing Organization Address City/[facility]/ZIP Co de Phone Number [facility] [address] [place] [address] * Magnesium (06/24/2025 2:14 AM EDT) Magnesium, Plasma 2.2 1.9 - 2.4 mg/dL 06/24/2025 2:46 AM EDT [facility] Blood Venous blood specimen / Unknown Venipuncture / Unknown 06/24/2025 2:14 AM EDT 06/24/2025 2:19 AM EDT Dyllan Paul MD LAB BLOOD ORDERABLES Final Re sult Performing Organization Address [facility]/ZIP Co de Phone Number [facility] [address] [place] [address] * Clostridiodes (Clostridium) difficile PCR (06/23/2025 9:17 AM EDT) [facility] C difficile PCR toxin B gene DNA Result Not Detected Not Detected 06/23/2025 11:44 AM EDT [facility] Stool Rectum structure / Unknown Non-blood Collection / Unknown 06/23/2025 9:17 AM EDT 06/23/2025 10:27 AM EDT Narrative [facility] - 06/23/2025 11:44 AM EDT [...] OR DERABLES Final Result Performing Organization Address [facility]/ZIP Co de Phone Number [facility] [address] [place] [address] * (ABNORMAL) Comprehensive metabolic panel (06/23/2025 3:41 AM EDT) [facility] Glucose, Plasma 110(H) 74 - 99 mg/dL 06/23/2025 4:31 AM EDT [facility] BUN, Plasma 35(H) 8 - 23 mg/dL 06/23/2025 4:31 AM EDT [facility] Creatinine, Plasma 1.17 0.70 - 1.20 mg/dL 06/23/2025 4:31 AM EDT [facility] BUN/Creatinine Ratio 30 06/23/2025 4:31 AM EDT [facility] Sodium, Plasma 134(L) 136 - 145 mmol/L 06/23/2025 4:31 AM EDT [facility] Potassium, Plasma 3.6 3.6 - 4.9 mmol/L 06/23/2025 4:31 AM EDT [facility] Chloride, Plasma 101 97 - 107 mmol/L 06/23/2025 4:31 AM EDT [facility] CO2, Plasma 23 22 - 29 mmol/L 06/23/2025 4:31 AM EDT [facility] Anion Gap 10 6 - 16 mmol/L 06/23/2025 4:31 AM EDT [facility] Total Calcium, Plasma 8.5(L) 8.9 - 10.2 mg/dL 06/23/2025 4:31 AM EDT [facility] Total Protein 4.9(L) 6.3 - 7.9 g/dL 06/23/2025 4:31 AM EDT [facility] Albumin, Plasma 2.5(L) 3.5 - 5.2 g/dL 06/23/2025 4:31 AM EDT [facility] AST, Plasma 86(H) 10 - 50 U/L 06/23/2025 4:31 AM T [facility] Comment:Hemolyzed, result ma y be falsely increased. ALT, Plasma 52(H) 10 - 50 U/L 06/23/2025 4:31 AM T [facility] Alkaline Phosphatase, Plasma 138(H) 40 - 115 U/L 06/23/2025 4:31 AM T [facility] Total Bilirubin, Plasma 2.3(H) 0.2 - 1.1 mg/dL 06/23/2025 4:31 AM T [facility] eGFRcr 67.1 mL/min/1.7 3m*2 06/23/2025 4:31 AM T [facility] Comment:Reported eGFRcr in m L/min/1.73m2 is based the CKD-EPI 2020 equation that does not use a race coefficient. Blood Venous blood specimen / Unknown Venipuncture / Unknown 06/23/2025 3:41 AM EDT 06/23/2025 4:00 AM EDT us Dyllna Paul MD LAB BLOOD ORDERABLES Final Re sult Performing Organization Address [facility] Co de Phone Number [facility] [address] [place] [address] * Phosphorus (06/23/2025 3:41 AM EDT) Phosphorus, Plasma 3.3 2.5 - 4.5 mg/dL 06/23/2025 4:31 AM EDT [facility] Blood Venous blood specimen / Unknown Venipuncture / Unknown 06/23/2025 3:41 AM EDT 06/23/2025 4:00 AM EDT us Dyllan Paul MD LAB BLOOD ORDERABLES Final Re sult Performing Organization Address [facility] Co de Phone Number [facility] [address] [place] [address] * Magnesium (06/23/2025 3:41 AM EDT) Magnesium, Plasma 2.1 1.9 - 2.4 mg/dL 06/23/2025 4:31 AM EDT [facility] Blood Venous blood specimen / Unknown Venipuncture / Unknown 06/23/2025 3:41 AM EDT 06/23/2025 4:00 AM EDT us Dyllan Paul MD LAB BLOOD ORDERABLES Final Re sult Performing Organization Address [facility] Co de Phone Number [facility] [address] [place] [address] * (ABNORMAL) Hemogram (CBC) (06/23/2025 3:41 AM EDT) WBC Count 24.07(H) 3.70 - 10.30 10*3/uL LAB HEMATOLOGY METHOD 06/23/2025 4:07 AM EDT [facility] RBC Count 3.66(L) 4.60 - 6.10 10*6/uL LAB HEMATOLOGY METHOD 06/23/2025 4:07 AM EDT [facility] HGB 12.3(L) 13.7 - 17.5 g/dL LAB HEMATOLOGY METHOD 06/23/2025 4:07 AM EDT [facility] HCT 34.6(L) 40.0 - 51.0 % LAB HEMATOLOGY METHOD 06/23/2025 4:07 AM EDT [facility] Platelet Count 141(L) 155 - 369 10*3/uL LAB HEMATOLOGY METHOD 06/23/2025 4:07 AM EDT [facility] MCV 95 79 - 98 fL LAB HEMATOLOGY METHOD 06/23/2025 4:07 AM EDT [facility] MCH 33.6(H) 26.0 - 32.0 pg LAB HEMATOLOGY METHOD 06/23/2025 4:07 AM EDT [facility] MCHC 35.5 30.7 - 35.5 g/dL LAB HEMATOLOGY METHOD 06/23/2025 4:07 AM EDT [facility] RDW 15.9(H) 11.5 - 14.5 % LAB HEMATOLOGY METHOD 06/23/2025 4:07 AM EDT [facility] MPV 11.4 8.8 - 12.5 fL LAB HEMATOLOGY METHOD 06/23/2025 4:07 AM EDT [facility] nRBC 0.0 <=0.0 per 100 WBCs LAB HEMATOLOGY METHOD 06/23/2025 4:07 AM EDT [facility] Blood Venous blood specimen / Unknown Venipuncture / Unknown 06/23/2025 3:41 AM EDT 06/23/2025 4:00 AM EDT us Dyllan Paul MD LAB BLOOD ORDERABLES Final Re sult [facility] [address] [place] [address] * (ABNORMAL) Prothrombin Time/INR (06/23/2025 3:41 AM EDT) Prothrombin Time 18.6(H) 12.0 - 14.3 sec LAB COAGULATION METHOD 06/23/2025 4:17 AM EDT [facility] INR 1.5(H) 0.9 - 1.1 LAB COAGULATION METHOD 06/23/2025 4:17 AM EDT [facility] Blood Venous blood specimen / Unknown Venipuncture / Unknown 06/23/2025 3:41 AM EDT 06/23/2025 4:00 AM EDT Narrative [facility] - 06/23/2025 4:17 AM EDT OPTIMAL INR RANGES FOR PATIENT ON ORAL ANTICOAGULANT THERAPY Prevention of venous thromboembolism INR 2.0 to 3.0 In patients with heart disease: Atrial fibrillation INR 2.0 to 3.0 Valvular heart disease INR 2.0 to 3.0 Tissue heart valves INR 2.0 to 3.0 Mechanical prosthetic valves INR 2.5 to 3.5 Prevention of recurrent MT INR 2.5 to 3.5 us Dyllan Paul MD LAB BLOOD ORDERABLES Final Re sult [facility] [address] [place] [address] * CT Angio Pulmonary Embolism (06/22/2025 2:26 [...] Kalyani Kam DO by me via secure [place] chatat 3:28 PM on 06/22/2025. Drafted by Shannan Chong MD on 06/22/2025 3:12 PM Final report signed by Shannan Chong MD on 06/22/2025 3:28 PM Dyllan Paul MD IMG CT PROCEDURES Final Resul t * Troponin T, High Sensitivity, 2 Hour, Plasma (06/22/2025 1:57 PM EDT) [facility] Troponin T, High Sensitivity, 2 Hour 16 <19 ng/L 06/22/2025 2:32 PM EDT [facility] Troponin Delta Interpretation Not Calculated 06/22/2025 2:32 PM EDT [facility] Comment:Specimen not collect ed within acceptable timeframe. Delta will not be calculated. Blood Venous blood specimen / Unknown Venipuncture / Unknown 06/22/2025 1:57 PM EDT 06/22/2025 2:04 PM EDT Dyllan aPul MD LAB BLOOD ORDERABLES Final Re sult [facility] [address] [place] [address] * Lactate, venous (06/22/2025 12:33 PM EDT) [facility] Lactate, Venous, Whole Blood 2.1 0.5 - 2.2 mmol/L LAB HEMATOLOGY METHOD 06/22/2025 12:47 PM EDT [facility] Blood Venous blood specimen / Unknown Venipuncture / Unknown 06/22/2025 12:33 PM EDT 06/22/2025 12:45 PM EDT Dyllan Paul MD LAB BLOOD ORDERABLES Final Re sult [facility] [address] [place] [address] * Sedimentation Rate, Automated (06/22/2025 12:33 PM EDT) [facility] Sedimentation Rate 13 <20 mm/hr 2024 12:58 PM EDT [facility] Blood Venous blood specimen / Unknown Venipuncture / Unknown 06/22/2025 12:33 PM EDT 06/22/2025 12:44 PM EDT Dyllan Paul MD LAB BLOOD ORDERABLES Final Re sult Performing Organization Address [facility] [place] [address] * (ABNORMAL) C-reactive protein (06/22/2025 12:33 PM EDT) CRP, Plasma 58.6(H) <=8.0 mg/L 06/22/2025 1:19 PM EDT [facility] Blood Venous blood specimen / Unknown Venipuncture / Unknown 06/22/2025 12:33 PM EDT 06/22/2025 12:44 PM EDT Narrative [facility] - 06/22/2025 1:19 PM EDT This CRP test is appropriate for assessment of infection, systemic inflammation and/or tissue injury. To assess cardiovascular disease risk order high sensitivity CRP (CRPH). Dyllan Paul MD LAB BLOOD ORDERABLES Final Re sult Performing Organization Address [facility] [place] [address] * (ABNORMAL) Procalcitonin (06/22/2025 12:33 PM EDT) Procalcitonin, Plasma 0.70(H) <0.09 ng/mL 06/22/2025 1:19 PM EDT [facility] Blood Venous blood specimen / Unknown Venipuncture / Unknown 06/22/2025 12:33 PM EDT 06/22/2025 12:44 PM EDT Narrative [facility] - 06/22/2025 1:19 PM EDT [...] predict 28 day mortality risk. Please consult [email or web address] for more information. Test performed at [facility]. us Dyllan Paul MD LAB BLOOD ORDERABLES Final Re sult Performing Organization Address [facility] [place] [address] * Blood Culture (Aerobic/Anaerobet Set) (06/22/2025 12:33 PM EDT) Culture No growth at day 5 KEELY 06/27/2025 1:01 PM EDT [facility] Blood Venous blood specimen / Unknown Venipuncture / Unknown 06/22/2025 12:33 PM EDT 06/22/2025 12:47 PM EDT us Dyllan Paul MD LAB MICROBIOLOGY - GENERAL OR DERABLES Final Result Performing Organization Address [facility] de Phone Number [facility] [address] [place] [address] * Troponin T, High Sensitivity, 0 Hour Plasma, Reflex to 2 Hour (06/22/2025 12:33 PM EDT) Troponin T, High Sensitivity, 0 Hour 14 <19 ng/L 06/22/2025 1:19 PM EDT [facility] Blood Venous blood specimen / Unknown Venipuncture / Unknown 06/22/2025 12:33 PM EDT 06/22/2025 12:44 PM EDT us Dyllan Paul MD LAB BLOOD ORDERABLES Final Re sult Performing Organization Address [facility]/State/ZIP Co de Phone Number [facility] [address] [place] [address] * CT Abdomen Pelvis w IV Contrast [...] Scott Arriaga MD on 06/22/2025 11:13 AM Dyllan Paul MD IMG CT PROCEDURES Final Resul t * N-Terminal Probnp (06/22/2025 1:57 AM EDT) N-Terminal, PROBNP, Plasma 74 0 - 899 pg/mL 06/22/2025 12:26 PM EDT [facility] Blood Venous blood specimen / Unknown Venipuncture / Unknown 06/22/2025 1:57 AM EDT 06/22/2025 2:09 AM EDT Dyllan Paul MD LAB BLOOD ORDERABLES Final Re sult [facility] [address] [place] [address] * (ABNORMAL) Comprehensive metabolic panel (06/22/2025 1:57 AM EDT) Glucose, Plasma 107(H) 74 - 99 mg/dL 06/22/2025 2:38 AM EDT [facility] BUN, Plasma 39(H) 8 - 23 mg/dL 06/22/2025 2:38 AM EDT [facility] Creatinine, Plasma 1.15 0.70 - 1.20 mg/dL 06/22/2025 2:38 AM EDT [facility] BUN/Creatinine Ratio 34 06/22/2025 2:38 AM EDT [facility] Sodium, Plasma 139 136 - 145 mmol/L 06/22/2025 2:38 AM EDT [facility] Potassium, Plasma 3.5(L) 3.6 - 4.9 mmol/L 06/22/2025 2:38 AM EDT [facility] Chloride, Plasma 103 97 - 107 mmol/L 06/22/2025 2:38 AM EDT [facility] CO2, Plasma 24 22 - 29 mmol/L 06/22/2025 2:38 AM EDT [facility] Anion Gap 12 6 - 16 mmol/L 06/22/2025 2:38 AM EDT [facility] Total Calcium, Plasma 8.2(L) 8.9 - 10.2 mg/dL 06/22/2025 2:38 AM EDT [facility] Total Protein 4.4(L) 6.3 - 7.9 g/dL 06/22/2025 2:38 AM EDT [facility] Albumin, Plasma 2.6(L) 3.5 - 5.2 g/dL 06/22/2025 2:38 AM EDT [facility] AST, Plasma 78(H) 10 - 50 U/L 06/22/2025 2:38 AM EDT [facility] Comment:Hemolyzed, result ma y be falsely increased. ALT, Plasma 44 10 - 50 U/L 06/22/2025 2:38 AM EDT [facility] Alkaline Phosphatase, Plasma 130(H) 40 - 115 U/L 06/22/2025 2:38 AM EDT [facility] Total Bilirubin, Plasma 2.4(H) 0.2 - 1.1 mg/dL 06/22/2025 2:38 AM EDT [facility] eGFRcr 68.5 mL/min/1.7 3m*2 06/22/2025 2:38 AM EDT [facility] Comment:Reported eGFRcr in m L/min/1.73m2 is based the CKD-EPI 2020 equation that does not use a race coefficient. Blood Venous blood specimen / Unknown Venipuncture / Unknown 06/22/2025 1:57 AM EDT 06/22/2025 2:09 AM EDT Dyllan Paul MD LAB BLOOD ORDERABLES Final Re sult Performing Organization Address [facility] Co de Phone Number [facility] [address] [place] [address] * Phosphorus (06/22/2025 1:57 AM EDT) Phosphorus, Plasma 3.2 2.5 - 4.5 mg/dL 06/22/2025 2:38 AM EDT [facility] Blood Venous blood specimen / Unknown Venipuncture / Unknown 06/22/2025 1:57 AM EDT 06/22/2025 2:09 AM EDT Dyllan Paul MD LAB BLOOD ORDERABLES Final Re sult Performing Organization Address [facility] Co de Phone Number [facility] [address] [place] [address] * Magnesium (06/22/2025 1:57 AM EDT) Magnesium, Plasma 2.1 1.9 - 2.4 mg/dL 06/22/2025 2:38 AM EDT [facility] Blood Venous blood specimen / Unknown Venipuncture / Unknown 06/22/2025 1:57 AM EDT 06/22/2025 2:09 AM EDT us Dyllan Paul MD LAB BLOOD ORDERABLES Final Re sult Performing Organization Address City/[facility]/ZIP Co de Phone Number [facility] [address] [place] [address] * (ABNORMAL) Hemogram (CBC) (06/22/2025 1:57 AM EDT) WBC Count 16.88(H) 3.70 - 10.30 10*3/uL LAB HEMATOLOGY METHOD 06/22/2025 2:20 AM EDT [facility] RBC Count 3.61(L) 4.60 - 6.10 10*6/uL LAB HEMATOLOGY METHOD 06/22/2025 2:20 AM EDT [facility] HGB 11.6(L) 13.7 - 17.5 g/dL LAB HEMATOLOGY METHOD 06/22/2025 2:20 AM EDT [facility] HCT 34.2(L) 40.0 - 51.0 % LAB HEMATOLOGY METHOD 06/22/2025 2:20 AM EDT [facility] Platelet Count 119(L) 155 - 369 10*3/uL LAB HEMATOLOGY METHOD 06/22/2025 2:20 AM EDT [facility] MCV 95 79 - 98 fL LAB HEMATOLOGY METHOD 06/22/2025 2:20 AM EDT [facility] MCH 32.1(H) 26.0 - 32.0 pg LAB HEMATOLOGY METHOD 06/22/2025 2:20 AM EDT [facility] MCHC 33.9 30.7 - 35.5 g/dL LAB HEMATOLOGY METHOD 06/22/2025 2:20 AM EDT [facility] RDW 15.8(H) 11.5 - 14.5 % LAB HEMATOLOGY METHOD 06/22/2025 2:20 AM EDT [facility] MPV 11.8 8.8 - 12.5 fL LAB HEMATOLOGY METHOD 06/22/2025 2:20 AM EDT [facility] nRBC 0.2(H) <=0.0 per 100 WBCs LAB HEMATOLOGY METHOD 06/22/2025 2:20 AM EDT [facility] Blood Venous blood specimen / Unknown Venipuncture / Unknown 06/22/2025 1:57 AM EDT 06/22/2025 2:09 AM EDT Dyllan Paul MD LAB BLOOD ORDERABLES Final Re sult Performing Organization Address [facility] Co de Phone Number [facility] [address] [place] [address] * (ABNORMAL) Prothrombin Time/INR (06/22/2025 1:57 AM EDT) Prothrombin Time 18.3(H) 12.0 - 14.3 sec LAB COAGULATION METHOD 06/22/2025 2:29 AM EDT [facility] INR 1.5(H) 0.9 - 1.1 LAB COAGULATION METHOD 06/22/2025 2:29 AM EDT [facility] Blood Venous blood specimen / Unknown Venipuncture / Unknown 06/22/2025 1:57 AM EDT 06/22/2025 2:09 AM EDT Narrative [facility] - 06/22/2025 2:29 AM EDT OPTIMAL INR RANGES FOR PATIENT ON ORAL ANTICOAGULANT THERAPY Prevention of venous thromboembolism INR 2.0 to 3.0 In patients with heart disease: Atrial fibrillation INR 2.0 to 3.0 Valvular heart disease INR 2.0 to 3.0 Tissue heart valves INR 2.0 to 3.0 Mechanical prosthetic valves INR 2.5 to 3.5 Prevention of recurrent MT INR 2.5 to 3.5 Dyllan Paul MD LAB BLOOD ORDERABLES Final Re sult Performing Organization Address [facility] Co de Phone Number [facility] [address] [place] [address] * (ABNORMAL) Comprehensive metabolic panel (06/21/2025 3:25 AM EDT) Glucose, Plasma 105(H) 74 - 99 mg/dL 06/21/2025 4:03 AM EDT [facility] BUN, Plasma 46(H) 8 - 23 mg/dL 06/21/2025 4:03 AM EDT [facility] Creatinine, Plasma 1.24(H) 0.70 - 1.20 mg/dL 06/21/2025 4:03 AM EDT [facility] BUN/Creatinine Ratio 37 06/21/2025 4:03 AM EDT [facility] Sodium, Plasma 138 136 - 145 mmol/L 06/21/2025 4:03 AM EDT [facility] Potassium, Plasma 3.5(L) 3.6 - 4.9 mmol/L 06/21/2025 4:03 AM EDT [facility] Chloride, Plasma 102 97 - 107 mmol/L 06/21/2025 4:03 AM EDT [facility] CO2, Plasma 24 22 - 29 mmol/L 06/21/2025 4:03 AM EDT [facility] Anion Gap 12 6 - 16 mmol/L 06/21/2025 4:03 AM EDT [facility] Total Calcium, Plasma 8.3(L) 8.9 - 10.2 mg/dL 06/21/2025 4:03 AM EDT [facility] Total Protein 4.8(L) 6.3 - 7.9 g/dL 06/21/2025 4:03 AM EDT [facility] Albumin, Plasma 2.5(L) 3.5 - 5.2 g/dL 06/21/2025 4:03 AM EDT [facility] AST, Plasma 73(H) 10 - 50 U/L 06/21/2025 4:03 AM EDT [facility] ALT, Plasma 41 10 - 50 U/L 06/21/2025 4:03 AM EDT [facility] Alkaline Phosphatase, Plasma 125(H) 40 - 115 U/L 06/21/2025 4:03 AM EDT [facility] Total Bilirubin, Plasma 3.4(H) 0.2 - 1.1 mg/dL 06/21/2025 4:03 AM EDT [facility] eGFRcr 62.5 mL/min/1.7 3m*2 06/21/2025 4:03 AM EDT [facility] Comment:Reported eGFRcr in m L/min/1.73m2 is based the CKD-EPI 2020 equation that does not use a race coefficient. Blood Venous blood specimen / Unknown Venipuncture / Unknown 06/21/2025 3:25 AM EDT 06/21/2025 3:33 AM EDT Dyllan Paul MD LAB BLOOD ORDERABLES Final Re sult Performing Organization Address [facility]/ZIP Co de Phone Number [facility] [address] [place] [address] * Phosphorus (06/21/2025 3:25 AM EDT) Phosphorus, Plasma 3.7 2.5 - 4.5 mg/dL 06/21/2025 4:03 AM EDT [facility] Blood Venous blood specimen / Unknown Venipuncture / Unknown 06/21/2025 3:25 AM EDT 06/21/2025 3:33 AM EDT Dyllan Paul MD LAB BLOOD ORDERABLES Final Re sult Performing Organization Address [facility] Co de Phone Number [facility] [address] [place] [address] * Magnesium (06/21/2025 3:25 AM EDT) Magnesium, Plasma 2.1 1.9 - 2.4 mg/dL 06/21/2025 4:03 AM EDT [facility] Blood Venous blood specimen / Unknown Venipuncture / Unknown 06/21/2025 3:25 AM EDT 06/21/2025 3:33 AM EDT Dyllan Paul MD LAB BLOOD ORDERABLES Final Re sult Performing Organization Address [facility] Co de Phone Number [facility] [address] [place] [address] * (ABNORMAL) Hemogram (CBC) (06/21/2025 3:25 AM EDT) WBC Count 15.49(H) 3.70 - 10.30 10*3/uL LAB HEMATOLOGY METHOD 06/21/2025 3:43 AM EDT [facility] RBC Count 3.73(L) 4.60 - 6.10 10*6/uL LAB HEMATOLOGY METHOD 06/21/2025 3:43 AM EDT [facility] HGB 12.3(L) 13.7 - 17.5 g/dL LAB HEMATOLOGY METHOD 06/21/2025 3:43 AM EDT [facility] HCT 35.1(L) 40.0 - 51.0 % LAB HEMATOLOGY METHOD 06/21/2025 3:43 AM EDT [facility] Platelet Count 107(L) 155 - 369 10*3/uL LAB HEMATOLOGY METHOD 06/21/2025 3:43 AM EDT [facility] MCV 94 79 - 98 fL LAB HEMATOLOGY METHOD 06/21/2025 3:43 AM EDT [facility] MCH 33.0(H) 26.0 - 32.0 pg LAB HEMATOLOGY METHOD 06/21/2025 3:43 AM EDT [facility] MCHC 35.0 30.7 - 35.5 g/dL LAB HEMATOLOGY METHOD 06/21/2025 3:43 AM EDT [facility] RDW 15.9(H) 11.5 - 14.5 % LAB HEMATOLOGY METHOD 06/21/2025 3:43 AM EDT [facility] MPV 11.8 8.8 - 12.5 fL LAB HEMATOLOGY METHOD 06/21/2025 3:43 AM EDT [facility] nRBC 0.2(H) <=0.0 per 100 WBCs LAB HEMATOLOGY METHOD 06/21/2025 3:43 AM EDT [facility] Blood Venous blood specimen / Unknown Venipuncture / Unknown 06/21/2025 3:25 AM EDT 06/21/2025 3:33 AM EDT Dyllan Paul MD LAB BLOOD ORDERABLES Final Re sult [facility] [address] [place] [address] * (ABNORMAL) Prothrombin Time/INR (06/21/2025 3:25 AM EDT) Prothrombin Time 18.7(H) 12.0 - 14.3 sec LAB COAGULATION METHOD 06/21/2025 4:27 AM EDT [facility] INR 1.5(H) 0.9 - 1.1 LAB COAGULATION METHOD 06/21/2025 4:27 AM EDT [facility] Blood Venous blood specimen / Unknown Venipuncture / Unknown 06/21/2025 3:25 AM EDT 06/21/2025 3:32 AM EDT Narrative [facility] - 06/21/2025 4:27 AM EDT OPTIMAL INR RANGES FOR PATIENT ON ORAL ANTICOAGULANT THERAPY Prevention of venous thromboembolism INR 2.0 to 3.0 In patients with heart disease: Atrial fibrillation INR 2.0 to 3.0 Valvular heart disease INR 2.0 to 3.0 Tissue heart valves INR 2.0 to 3.0 Mechanical prosthetic valves INR 2.5 to 3.5 Prevention of recurrent MT INR 2.5 to 3.5 Dyllan Paul MD LAB BLOOD ORDERABLES Final Re sult Performing Organization Address [facility] [place] [address] * Creatinine, Drain Fluid (06/20/2025 1:43 PM EDT) Creatinine, Fluid 1.35 mg/dL 06/20/2025 3:10 PM EDT [facility] Fluid Drainage fluid specimen / Unknown 06/20/2025 1:43 PM EDT 06/20/2025 2:15 PM EDT Narrative [facility] - 06/20/2025 3:10 PM EDT Reference Values: No established reference interval. Results should be interpreted in comparison to the concentration in blood and in conjunction with the clinical context. This test was developed and its performance characteristics determined by [facility]. The [place]. Food and Drug [...] OR DERABLES Final Result Performing Organization Address [facility] Co de Phone Number [address] [address] * (ABNORMAL) Hemogram (CBC) (06/20/2025 11:12 AM EDT) WBC Count 14.75(H) 3.70 - 10.30 10*3/uL LAB HEMATOLOGY METHOD 06/20/2025 11:31 AM EDT [facility] RBC Count 3.67(L) 4.60 - 6.10 10*6/uL LAB HEMATOLOGY METHOD 06/20/2025 11:31 AM EDT [facility] HGB 12.2(L) 13.7 - 17.5 g/dL LAB HEMATOLOGY METHOD 06/20/2025 11:31 AM EDT [facility] HCT 35.0(L) 40.0 - 51.0 % LAB HEMATOLOGY METHOD 06/20/2025 11:31 AM EDT [facility] Platelet Count 103(L) 155 - 369 10*3/uL LAB HEMATOLOGY METHOD 06/20/2025 11:31 AM EDT [facility] MCV 95 79 - 98 fL LAB HEMATOLOGY METHOD 06/20/2025 11:31 AM EDT [facility] MCH 33.2(H) 26.0 - 32.0 pg LAB HEMATOLOGY METHOD 06/20/2025 11:31 AM EDT [facility] MCHC 34.9 30.7 - 35.5 g/dL LAB HEMATOLOGY METHOD 06/20/2025 11:31 AM EDT [facility] RDW 15.9(H) 11.5 - 14.5 % LAB HEMATOLOGY METHOD 06/20/2025 11:31 AM EDT [facility] MPV 11.4 8.8 - 12.5 fL LAB HEMATOLOGY METHOD 06/20/2025 11:31 AM EDT [facility] nRBC 0.1(H) <=0.0 per 100 WBCs LAB HEMATOLOGY METHOD 06/20/2025 11:31 AM EDT [facility] Blood Venous blood specimen / Unknown Venipuncture / Unknown 06/20/2025 11:12 AM EDT 06/20/2025 11:19 AM EDT us Dyllan Paul MD LAB BLOOD ORDERABLES Final Re sult [facility] [address] [place] [address] * (ABNORMAL) Blood gas panel, venous (06/20/2025 11:12 AM EDT) pH, Venous 7.44(H) 7.32 - 7.43 LAB HEMATOLOGY METHOD 06/20/2025 11:23 AM EDT [facility] pCO2, Venous 38(L) 40 - 55 mmHg LAB HEMATOLOGY METHOD 06/20/2025 11:23 AM EDT [facility] pO2, Venous 60(H) 25 - 40 mmHg LAB HEMATOLOGY METHOD 06/20/2025 11:23 AM EDT [facility] SO2, Measured, Venous 88(H) 65 - 80 % LAB HEMATOLOGY METHOD 06/20/2025 11:23 AM EDT [facility] Base Excess, Venous 1.5 -2.0 - 3.0 mmol/L LAB HEMATOLOGY METHOD 06/20/2025 11:23 AM EDT [facility] Bicarbonate, Calculated, Venous 26 22 - 26 mmol/L LAB HEMATOLOGY METHOD 06/20/2025 11:23 AM EDT [facility] Hematocrit, Whole Blood 32.5(L) 40.0 - 51.0 % LAB HEMATOLOGY METHOD 06/20/2025 11:23 AM EDT [facility] Sodium, Whole Blood 135(L) 136 - 145 mmol/L LAB HEMATOLOGY METHOD 06/20/2025 11:23 AM EDT [facility] Potassium, Whole Blood 2.8(L) 3.6 - 4.9 mmol/L LAB HEMATOLOGY METHOD 06/20/2025 11:23 AM EDT [facility] Chloride, Whole Blood 101 97 - 107 mmol/L LAB HEMATOLOGY METHOD 06/20/2025 11:23 AM EDT [facility] Glucose, Whole Blood 164(H) 74 - 99 mg/dL LAB HEMATOLOGY METHOD 06/20/2025 11:23 AM EDT [facility] Lactate, Venous, Whole Blood 2.5(H) 0.5 - 2.2 mmol/L LAB HEMATOLOGY METHOD 06/20/2025 11:23 AM EDT [facility] Ionized Calcium, Whole Blood 4.4(L) 4.6 - 5.1 mg/dL LAB HEMATOLOGY METHOD 06/20/2025 11:23 AM EDT [facility] Blood Venous blood specimen / Unknown Venipuncture / Unknown 06/20/2025 11:12 AM EDT 06/20/2025 11:20 AM EDT us Dyllan Paul MD LAB BLOOD ORDERABLES Final Re sult [facility] [address] [place] [address] * [place] Cystogram (06/20/2025 10:01 AM EDT) [...] radiograph from June 14, 2025. FINDINGS: On ethylbenzene oxidizer images, there are 3 rounded calcifications overlying [...] 2025. Abdominal radiograph from 2024. FINDINGS: On ethylbenzene oxidizer images, there are 3 rounded calcifications overlying [...] Abner King MD on 06/20/2025 1:42 PM us Dyllan Paul MD IMG FLUOROSCOPY PROCEDURES Ed ited Result - Final * (ABNORMAL) Comprehensive metabolic panel (06/20/2025 2:07 AM EDT) Glucose, Plasma 84 74 - 99 mg/dL 06/20/2025 2:42 AM EDT [facility] BUN, Plasma 50(H) 8 - 23 mg/dL 06/20/2025 2:42 AM EDT [facility] Creatinine, Plasma 1.28(H) 0.70 - 1.20 mg/dL 06/20/2025 2:42 AM EDT [facility] BUN/Creatinine Ratio 39 06/20/2025 2:42 AM EDT [facility] Sodium, Plasma 139 136 - 145 mmol/L 06/20/2025 2:42 AM EDT [facility] Potassium, Plasma 4.2 3.6 - 4.9 mmol/L 06/20/2025 2:42 AM EDT [facility] Comment:Hemolyzed, result ma y be falsely increased. Chloride, Plasma 105 97 - 107 mmol/L 06/20/2025 2:42 AM EDT [facility] CO2, Plasma 21(L) 22 - 29 mmol/L 06/20/2025 2:42 AM EDT [facility] Anion Gap 13 6 - 16 mmol/L 06/20/2025 2:42 AM EDT [facility] Total Calcium, Plasma 8.6(L) 8.9 - 10.2 mg/dL 06/20/2025 2:42 AM EDT [facility] Total Protein 4.9(L) 6.3 - 7.9 g/dL 06/20/2025 2:42 AM EDT [facility] Albumin, Plasma 2.5(L) 3.5 - 5.2 g/dL 06/20/2025 2:42 AM EDT [facility] AST, Plasma 83(H) 10 - 50 U/L 06/20/2025 2:42 AM EDT [facility] Comment:Hemolyzed, result ma y be falsely increased. ALT, Plasma 36 10 - 50 U/L 06/20/2025 2:42 AM EDT [facility] Comment:Hemolyzed, result ma y be falsely increased or decreased. Alkaline Phosphatase, Plasma 133(H) 40 - 115 U/L 06/20/2025 2:42 AM EDT [facility] Total Bilirubin, Plasma 2.8(H) 0.2 - 1.1 mg/dL 06/20/2025 2:42 AM EDT [facility] eGFRcr 60.2 mL/min/1.7 3m*2 06/20/2025 2:42 AM EDT [facility] Comment:Reported eGFRcr in m L/min/1.73m2 is based the CKD-EPI 2020 equation that does not use a race coefficient. Blood Venous blood specimen / Unknown Venipuncture / Unknown 06/20/2025 2:07 AM EDT 06/20/2025 2:14 AM EDT Dyllan Paul MD LAB BLOOD ORDERABLES Final Re sult Performing Organization Address [facility] Co de Phone Number [facility] [address] [place] [address] * (ABNORMAL) Phosphorus (06/20/2025 2:07 AM EDT) Phosphorus, Plasma 4.7(H) 2.5 - 4.5 mg/dL 06/20/2025 2:42 AM EDT [facility] Blood Venous blood specimen / Unknown Venipuncture / Unknown 06/20/2025 2:07 AM EDT 06/20/2025 2:14 AM EDT Dyllan Paul MD LAB BLOOD ORDERABLES Final Re sult [facility] [address] [place] [address] * Magnesium (06/20/2025 2:07 AM EDT) Magnesium, Plasma 2.0 1.9 - 2.4 mg/dL 06/20/2025 2:42 AM EDT [facility] Blood Venous blood specimen / Unknown Venipuncture / Unknown 06/20/2025 2:07 AM EDT 06/20/2025 2:14 AM EDT us Dyllan Paul MD LAB BLOOD ORDERABLES Final Re sult Performing Organization Address [facility] Co de Phone Number [facility] [address] [place] [address] * (ABNORMAL) Prothrombin Time/INR (06/20/2025 2:07 AM EDT) Pathologist [facility] Prothrombin Time 16.9(H) 12.0 - 14.3 sec LAB COAGULATION METHOD 06/20/2025 2:31 AM EDT [facility] INR 1.3(H) 0.9 - 1.1 LAB COAGULATION METHOD 06/20/2025 2:31 AM EDT [facility] Blood Venous blood specimen / Unknown Venipuncture / Unknown 06/20/2025 2:07 AM EDT 06/20/2025 2:14 AM EDT Narrative [facility] - 06/20/2025 2:31 AM EDT OPTIMAL INR RANGES FOR PATIENT ON ORAL ANTICOAGULANT THERAPY Prevention of venous thromboembolism INR 2.0 to 3.0 In patients with heart disease: Atrial fibrillation INR 2.0 to 3.0 Valvular heart disease INR 2.0 to 3.0 Tissue heart valves INR 2.0 to 3.0 Mechanical prosthetic valves INR 2.5 to 3.5 Prevention of recurrent MT INR 2.5 to 3.5 us Dyllan Paul MD LAB BLOOD ORDERABLES Final Re sult Performing Organization Address [facility] Co de Phone Number [facility] [address] [place] [address] * Urinalysis Microscopic Examination (06/19/2025 2:16 PM EDT) Urine Urine specimen obtained by clean catch procedure / Unknown Non-blood Collection / Unknown 06/19/2025 2:16 PM EDT 06/19/2025 2:23 PM EDT us Dyllan Paul MD LAB URINE ORDERABLES Final Re sult [facility] [address] [place] [address] * Osmolality, urine (06/19/2025 2:16 PM EDT) Osmolality, Urine 645 50 - 1,200 mOsm/kg 06/19/2025 3:14 PM EDT [facility] Urine Urine specimen obtained by clean catch procedure / Unknown Non-blood Collection / Unknown 06/19/2025 2:16 PM EDT 06/19/2025 2:31 PM EDT us Dyllan Paul MD LAB URINE ORDERABLES Final Re sult Performing Organization Address [facility]/ZIP Co de Phone Number [facility] [address] [place] [address] * Creatinine, urine, random (06/19/2025 2:16 PM EDT) Creatinine, Urine 99 mg/dL 06/19/2025 3:06 PM EDT [facility] Urine Urine specimen obtained by clean catch procedure / Unknown Non-blood Collection / Unknown 06/19/2025 2:16 PM EDT 06/19/2025 2:22 PM EDT us Dyllan Paul MD LAB URINE ORDERABLES Final Re sult Performing Organization Address [facility]/ZIP Co de Phone Number [facility] [address] [place], [place] [address] * Sodium, urine, random (06/19/2025 2:16 PM EDT) Sodium, Urine <20 mmol/L 06/19/2025 3:06 PM EDT [facility] Urine Urine specimen obtained by clean catch procedure / Unknown Non-blood Collection / Unknown 06/19/2025 2:16 PM EDT 06/19/2025 2:22 PM EDT us Dyllan Paul MD LAB URINE ORDERABLES Final Re sult Performing Organization Address City/[facility]/ZIP Co de Phone Number [facility] [address] [place] [address] * (ABNORMAL) Urinalysis with reflex microscopic (Culture NOT Included) (06/19/2025 2:16 PM EDT) Color, Urine Yellow LAB URINALYSIS - AUTOMATED METHOD 06/19/2025 2:33 PM EDT [facility] Clarity, Urine Clear LAB URINALYSIS - AUTOMATED METHOD 06/19/2025 2:33 PM EDT [facility] Spec Davison, Urine 1.024 1.005 - 1.030 LAB URINALYSIS - AUTOMATED METHOD 06/19/2025 2:33 PM EDT [facility] pH, Urine 6.0 5.0 - 8.0 LAB URINALYSIS - AUTOMATED METHOD 06/19/2025 2:33 PM EDT [facility] Protein, Urine 30(A) Negative mg/dL LAB URINALYSIS - AUTOMATED METHOD 06/19/2025 2:33 PM EDT [facility] Glucose, Urine Negative Negative mg/dL LAB URINALYSIS - AUTOMATED METHOD 06/19/2025 2:33 PM EDT [facility] Ketones, Urine Trace(A) Negative mg/dL LAB URINALYSIS - AUTOMATED METHOD 06/19/2025 2:33 PM EDT [facility] Blood, Urine Large(A) Negative LAB URINALYSIS - AUTOMATED METHOD 06/19/2025 2:33 PM EDT [facility] Bilirubin, Urine Negative Negative LAB URINALYSIS - AUTOMATED METHOD 06/19/2025 2:33 PM EDT [facility] Urobilinogen, Urine 1.0 0.2 to 1.0 mg/dL LAB URINALYSIS - AUTOMATED METHOD 06/19/2025 2:33 PM EDT [facility] Leukocytes, Urine Small(A) Negative LAB URINALYSIS - AUTOMATED METHOD 06/19/2025 2:33 PM EDT [facility] Nitrite, Urine Negative Negative LAB URINALYSIS - AUTOMATED METHOD 06/19/2025 2:33 PM EDT [facility] RBC, Urine >50(A) 0 to 3 /HPF LAB URINALYSIS - AUTOMATED METHOD 06/19/2025 2:33 PM EDT [facility] WBC, Urine 6 - 10(A) 0 to 5 /HPF LAB URINALYSIS - AUTOMATED METHOD 06/19/2025 2:33 PM EDT [facility] Squamous Epithelial Cells 0 - 2 0 to 5 /HPF LAB URINALYSIS - AUTOMATED METHOD 06/19/2025 2:33 PM EDT [facility] Hyaline Casts 0 - 2 0 to 5 /LPF LAB URINALYSIS - AUTOMATED METHOD 06/19/2025 2:33 PM EDT [facility] Bacteria, Urine Negative Negative LAB URINALYSIS - AUTOMATED METHOD 06/19/2025 2:33 PM EDT [facility] Urine Urine specimen obtained by clean catch procedure / Unknown Non-blood Collection / Unknown 06/19/2025 2:16 PM EDT 06/19/2025 2:23 PM EDT us Dyllan Paul MD LAB URINE ORDERABLES Final Re sult [facility] [address] [place] [address] * (ABNORMAL) POCT glucose meter (06/19/2025 12:41 PM EDT) [facility] POCT Glucose 127(H) 74 - 99 mg/dL [...] Comment 06/19/2025 12:43 PM EDT [facility] Aeronautical Engineering Technologist ID Sanjuana Sapp 06/19/2025 12:43 PM EDT [facility] Device ID [id number] 06/19/2025 12:43 PM EDT [facility] Specimen Type POC Capillary 06/19/2025 12:[address] [facility] Blood Capillary blood specimen / Unknown 06/19/2025 12:41 PM EDT 06/19/2025 12:43 PM EDT us Dyllan Paul MD LAB POINT OF CARE TE ST DOCKED DEVICE UNSOLICITED RESULTS Final Result [facility] [address] [place] [address] * (ABNORMAL) POCT glucose meter (06/19/2025 9:58 AM EDT) Pathologist [facility] POCT Glucose 125(H) 74 - 99 mg/dL [...] for testing. Comment 06/19/2025 10:00 AM EDT [facility] Aeronautical Engineering Technologist ID Sanjuana Sapp 06/19/2025 10:00 AM EDT [facility] Device ID [id number] 06/19/2025 10:[address] [facility] Specimen Type POC Capillary 06/19/2025 10:[address] [facility] Blood Capillary blood specimen / Unknown 06/19/2025 9:58 AM EDT 06/19/2025 10:00 AM EDT Dyllan Paul MD LAB POINT OF CARE TE ST DOCKED DEVICE UNSOLICITED RESULTS Final Result Performing Organization Address City/[facility]/ZIP Co de Phone Number [facility] [address] [place] [address] * (ABNORMAL) POCT glucose meter (06/19/2025 5:49 AM EDT) [facility] POCT Glucose 141(H) 74 - 99 [...] 06/19/2025 5:51 AM EDT [facility] Aeronautical Engineering Technologist ID Kathy Palmer 06/19/2025 5:51 AM EDT [facility] Device ID [id number] 06/19/2025 5:51 AM EDT [facility] Specimen Type POC Capillary 06/19/2025 5:51 AM EDT [facility] Blood Capillary blood specimen / Unknown 06/19/2025 5:49 AM EDT 06/19/2025 5:51 AM EDT Dyllan Paul MD LAB POINT OF CARE TE ST DOCKED DEVICE UNSOLICITED RESULTS Final Result [facility] [address] [place] [address] * (ABNORMAL) Hepatic function panel (06/19/2025 1:00 AM EDT) Direct Bilirubin, Plasma 1.1(H) <=0.3 mg/dL 06/19/2025 6:48 PM EDT [facility] Comment:Hemolyzed, result ma y be falsely decreased. Alkaline Phosphatase, Plasma 179(H) 40 - 115 U/L 06/19/2025 6:48 PM EDT [facility] Total Bilirubin, Plasma 2.5(H) 0.2 - 1.1 mg/dL 06/19/2025 6:48 PM EDT [facility] Albumin, Plasma 2.7(L) 3.5 - 5.2 g/dL 06/19/2025 6:48 PM EDT [facility] Total Protein 5.1(L) 6.3 - 7.9 g/dL 06/19/2025 6:48 PM EDT [facility] ALT, Plasma 33 10 - 50 U/L 06/19/2025 6:48 PM EDT [facility] AST, Plasma 59(H) 10 - 50 U/L 06/19/2025 6:48 PM EDT [facility] Comment:Hemolyzed, result ma y be falsely increased. Blood Venous blood specimen / Unknown Venipuncture / Unknown 06/19/2025 1:00 AM EDT 06/19/2025 1:04 AM EDT us Anna Armas MD LAB BLOOD ORDERABLES Final Resul t Performing Organization Address [facility]/ZIP Co de Phone Number [facility] [address] [place] [address] * (ABNORMAL) Cystatin C (06/19/2025 1:00 AM EDT) Cystatin C 1.9(H) 0.61 - 0.95 mg/L 06/19/2025 2:07 PM EDT [facility] Blood Venous blood specimen / Unknown Venipuncture / Unknown 06/19/2025 1:00 AM EDT 06/19/2025 1:04 AM EDT Dyllan Paul MD LAB BLOOD ORDERABLES Final Re sult Performing Organization Address [facility] [place] [address] * (ABNORMAL) Osmolality (06/19/2025 1:00 AM EDT) Osmolality, Serum 311(H) 280 - 301 mOsm/Kg 06/19/2025 1:05 PM EDT [facility] Blood Venous blood specimen / Unknown Venipuncture / Unknown 06/19/2025 1:00 AM EDT 06/19/2025 1:04 AM EDT Dyllan Paul MD LAB BLOOD ORDERABLES Final Re sult Performing Organization Address [facility] Co de Phone Number [facility] [address] [place] [address] * Phosphorus (06/19/2025 1:00 AM EDT) Phosphorus, Plasma 3.8 2.5 - 4.5 mg/dL 06/19/2025 1:33 AM EDT [facility] Blood Venous blood specimen / Unknown Venipuncture / Unknown 06/19/2025 1:00 AM EDT 06/19/2025 1:04 AM EDT Dyllan Paul MD LAB BLOOD ORDERABLES Final Re sult Performing Organization Address City/[facility]/ZIP Co de Phone Number [facility] [address] [place] [address] * Magnesium (06/19/2025 1:00 AM EDT) Magnesium, Plasma 2.0 1.9 - 2.4 mg/dL 06/19/2025 1:33 AM EDT [facility] Blood Venous blood specimen / Unknown Venipuncture / Unknown 06/19/2025 1:00 AM EDT 06/19/2025 1:04 AM EDT Dyllan Paul MD LAB BLOOD ORDERABLES Final Re sult Performing Organization Address [facility] Co de Phone Number [facility] [address] [place] [address] * (ABNORMAL) Basic metabolic panel (06/19/2025 1:00 AM EDT) Glucose, Plasma 131(H) 74 - 99 mg/dL 06/19/2025 1:33 AM EDT [facility] BUN, Plasma 51(H) 8 - 23 mg/dL 06/19/2025 1:33 AM EDT [facility] Creatinine, Plasma 1.29(H) 0.70 - 1.20 mg/dL 06/19/2025 1:33 AM EDT [facility] BUN/Creatinine Ratio 40 06/19/2025 1:33 AM EDT [facility] Sodium, Plasma 146(H) 136 - 145 mmol/L 06/19/2025 1:33 AM EDT [facility] Potassium, Plasma 3.6 3.6 - 4.9 mmol/L 06/19/2025 1:33 AM EDT [facility] Chloride, Plasma 111(H) 97 - 107 mmol/L 06/19/2025 1:33 AM EDT [facility] CO2, Plasma 25 22 - 29 mmol/L 06/19/2025 1:33 AM EDT [facility] Anion Gap 10 6 - 16 mmol/L 06/19/2025 1:33 AM EDT [facility] Total Calcium, Plasma 8.9 8.9 - 10.2 mg/dL 06/19/2025 1:33 AM EDT [facility] eGFRcr 59.6 mL/min/1.7 3m*2 06/19/2025 1:33 AM EDT [facility] Comment:Reported eGFRcr in m L/min/1.73m2 is based the CKD-EPI 2020 equation that does not use a race coefficient. Blood Venous blood specimen / Unknown Venipuncture / Unknown 06/19/2025 1:00 AM EDT 06/19/2025 1:04 AM EDT us Dyllan Paul MD LAB BLOOD ORDERABLES Final Re sult [facility] [address] [place] [address] * (ABNORMAL) Hemogram (CBC) (06/19/2025 1:00 AM EDT) WBC Count 13.62(H) 3.70 - 10.30 10*3/uL LAB HEMATOLOGY METHOD 06/19/2025 1:11 AM EDT [facility] RBC Count 3.72(L) 4.60 - 6.10 10*6/uL LAB HEMATOLOGY METHOD 06/19/2025 1:11 AM EDT [facility] HGB 12.1(L) 13.7 - 17.5 g/dL LAB HEMATOLOGY METHOD 06/19/2025 1:11 AM EDT [facility] HCT 36.3(L) 40.0 - 51.0 % LAB HEMATOLOGY METHOD 06/19/2025 1:11 AM EDT [facility] Platelet Count 90(L) 155 - 369 10*3/uL LAB HEMATOLOGY METHOD 06/19/2025 1:11 AM EDT [facility] MCV 98 79 - 98 fL LAB HEMATOLOGY METHOD 06/19/2025 1:11 AM EDT [facility] MCH 32.5(H) 26.0 - 32.0 pg LAB HEMATOLOGY METHOD 06/19/2025 1:11 AM EDT [facility] MCHC 33.3 30.7 - 35.5 g/dL LAB HEMATOLOGY METHOD 06/19/2025 1:11 AM EDT [facility] RDW 16.5(H) 11.5 - 14.5 % LAB HEMATOLOGY METHOD 06/19/2025 1:11 AM EDT [facility] MPV 12.4 8.8 - 12.5 fL LAB HEMATOLOGY METHOD 06/19/2025 1:11 AM EDT [facility] nRBC 0.1(H) <=0.0 per 100 WBCs LAB HEMATOLOGY METHOD 06/19/2025 1:11 AM EDT [facility] Blood Venous blood specimen / Unknown Venipuncture / Unknown 06/19/2025 1:00 AM EDT 06/19/2025 1:04 AM EDT us Dyllan Paul MD LAB BLOOD ORDERABLES Final Re sult Performing Organization Address [facility] Co de Phone Number [facility] [address] [place] [address] * Ammonia, Plasma (06/19/2025 1:00 AM EDT) Pathologist [facility] Ammonia 45 11 - 51 umol/L 06/19/2025 1:29 AM EDT [facility] Comment:Improper specimen marquez ndling may falsely increase results. Blood Venous blood specimen / Unknown Venipuncture / Unknown 06/19/2025 1:00 AM EDT 06/19/2025 1:04 AM EDT us Michelle Iniguez APRN LAB BLOOD ORDERABLES Final R esult Performing Organization Address [facility]/ZIP Co de Phone Number [facility] [address] [place] [address] * (ABNORMAL) POCT glucose meter (06/19/2025 12:59 AM EDT) Pathologist [facility] POCT Glucose 123(H) 74 - 99 mg/dL 06/19/2025 1:03 AM EDT [email or web address] Comment:Accuracy of a glucos e result [...] 06/19/2025 1:03 AM EDT [facility] Aeronautical Engineering Technologist ID Kathy Palmer 06/19/2025 1:03 AM EDT [facility] Device ID [id number] 06/19/2025 1:03 AM EDT [facility] Specimen Type POC Venous 06/19/2025 1:03 AM EDT [facility] Blood Venous blood specimen / Unknown 06/19/2025 12:59 AM EDT 06/19/2025 1:03 AM EDT us Dyllan Paul MD LAB POINT OF CARE TE ST DOCKED DEVICE UNSOLICITED RESULTS Final Result Performing Organization Address [facility] Co de Phone Number [facility] [address] [place] [address] * (ABNORMAL) POCT glucose meter (06/18/2025 5:37 PM EDT) [facility] POCT Glucose 150(H) 74 - 99 mg/dL [...] for testing. Comment 06/18/2025 5:39 PM EDT [facility] Aeronautical Engineering Technologist ID Lesia Booth 5:39 PM EDT [facility] Device ID [id number] 06/18/2025 5:39 PM EDT [facility] Specimen Type POC Capillary 06/18/2025 5:39 PM EDT [facility] Blood Capillary blood specimen / Unknown 06/18/2025 5:37 PM EDT 06/18/2025 5:39 PM EDT us Dyllan Paul MD LAB POINT OF CARE TE ST DOCKED DEVICE UNSOLICITED RESULTS Final Result Performing Organization Address City/[facility]/ZIP Co de Phone Number [facility] [address] [place] [address] * (ABNORMAL) POCT glucose meter (06/18/2025 12:29 [...] Comment 06/18/2025 12:30 PM EDT [facility] Aeronautical Engineering Technologist ID Lesia Booth 12:30 PM EDT [facility] Device ID [id number] 06/18/2025 12:30 PM EDT [facility] Specimen Type POC Capillary 06/18/2025 12:[address] [facility] Blood Capillary blood specimen / Unknown 06/18/2025 12:29 PM EDT 06/18/2025 12:30 PM EDT Dyllan Paul MD LAB POINT OF CARE TE ST DOCKED DEVICE UNSOLICITED RESULTS Final Result [facility] [address] [place] [address] * CO CRITICAL CARE, E/M 30-74 MINUTES (06/18/2025 9:49 [...] POCT glucose meter (06/18/2025 5:50 AM EDT) [facility] POCT Glucose 146(H) 74 - 99 mg/dL [...] for testing. Comment 06/18/2025 5:52 AM EDT [email or web address] Aeronautical Engineering Technologist ID Aurea Schaefer 06/18/2025 5:[address] [facility] Device ID [id number] 06/18/2025 5:[address] [facility] Specimen Type POC Arterial 06/18/2025 5:[address] [facility] Blood Arterial blood specimen / Unknown 06/18/2025 5:50 AM EDT 06/18/2025 5:52 AM EDT us Dyllan Paul MD LAB POINT OF CARE TE ST DOCKED DEVICE UNSOLICITED RESULTS Final Result [facility] [address] [place] [address] * (ABNORMAL) Blood gas panel, arterial (06/18/2025 5:47 AM EDT) [facility] pH, Arterial 7.48(H) 7.31 - 7.42 LAB HEMATOLOGY METHOD 06/18/2025 5:59 AM EDT [facility] pCO2, Arterial 36 32 - 45 mmHg LAB HEMATOLOGY METHOD 06/18/2025 5:59 AM EDT [facility] pO2, Arterial 63(L) >70 mmHg LAB HEMATOLOGY METHOD 06/18/2025 5:59 AM EDT [facility] SO2, Measured, Arterial 94 94 - 98 % LAB HEMATOLOGY METHOD 06/18/2025 5:59 AM EDT [facility] Base Excess, Arterial 3.3(H) -2.0 - 3.0 mmol/L LAB HEMATOLOGY METHOD 06/18/2025 5:59 AM EDT [facility] Bicarbonate, Calculated, Arterial 27(H) 22 - 26 mmol/L LAB HEMATOLOGY METHOD 06/18/2025 5:59 AM EDT [facility] Hematocrit, Whole Blood 37.9(L) 40.0 - 51.0 % LAB HEMATOLOGY METHOD 06/18/2025 5:59 AM EDT [facility] Sodium, Whole Blood 153(H) 136 - 145 mmol/L LAB HEMATOLOGY METHOD 06/18/2025 5:59 AM EDT [facility] Potassium, Whole Blood 4.3 3.6 - 4.9 mmol/L LAB HEMATOLOGY METHOD 06/18/2025 5:59 AM EDT [facility] Chloride, Whole Blood 119(H) 97 - 107 mmol/L LAB HEMATOLOGY METHOD 06/18/2025 5:59 AM EDT [facility] Glucose, Whole Blood 138(H) 74 - 99 mg/dL LAB HEMATOLOGY METHOD 06/18/2025 5:59 AM EDT [facility] Ionized Calcium, Whole Blood 5.1 4.6 - 5.1 mg/dL LAB HEMATOLOGY METHOD 06/18/2025 5:59 AM EDT [facility] Lactate, Arterial, Whole Blood 1.6 0.5 - 1.6 mmol/L LAB HEMATOLOGY METHOD 06/18/2025 5:59 AM EDT [facility] Blood Arterial blood specimen / Unknown Arterial Puncture / Unknown 06/18/2025 5:47 AM EDT 06/18/2025 5:57 AM EDT us Michelle Iniguez APRN LAB BLOOD ORDERABLES Final R esult [facility] [address] [place] [address] * (ABNORMAL) POCT glucose meter (06/18/2025 12:10 AM EDT) POCT Glucose 152(H) 74 - 99 mg/dL 06/18/2025 12:12 AM EDT [facility] Comment:Accuracy of a [...] Comment 06/18/2025 12:12 AM EDT [facility] Aeronautical Engineering Technologist ID Aurea Schaefer 06/18/2025 12:12 AM EDT [facility] Device ID [id number] 06/18/2025 12:[address] [facility] Specimen Type POC Arterial 06/18/2025 12:[address] [facility] Blood Arterial blood specimen / Unknown 06/18/2025 12:10 AM EDT 06/18/2025 12:12 AM EDT us Dyllan Paul MD LAB POINT OF CARE TE ST DOCKED DEVICE UNSOLICITED RESULTS Final Result Performing Organization Address City/[facility]/ZIP Co de Phone Number [facility] [address] [place] [address] * Phosphorus (06/17/2025 11:58 PM EDT) [facility] Phosphorus, Plasma 3.1 2.5 - 4.5 mg/dL 06/18/2025 12:32 AM EDT [facility] Blood Venous blood specimen / Unknown Venipuncture / Unknown 06/17/2025 11:58 PM EDT 06/18/2025 12:05 AM EDT us Dyllan Paul MD LAB BLOOD ORDERABLES Final Re sult [facility] [address] [place] [address] * Magnesium (06/17/2025 11:58 PM EDT) [facility] Magnesium, Plasma 2.3 1.9 - 2.4 mg/dL 06/18/2025 12:32 AM EDT [facility] Blood Venous blood specimen / Unknown Venipuncture / Unknown 06/17/2025 11:58 PM EDT 06/18/2025 12:05 AM EDT us Dyllan Paul MD LAB BLOOD ORDERABLES Final Re sult [facility] [address] [place] [address] * (ABNORMAL) Basic metabolic panel (06/17/2025 11:58 PM EDT) Glucose, Plasma 160(H) 74 - 99 mg/dL 06/18/2025 12:32 AM EDT [facility] BUN, Plasma 52(H) 8 - 23 mg/dL 06/18/2025 12:32 AM EDT [facility] Creatinine, Plasma 1.23(H) 0.70 - 1.20 mg/dL 06/18/2025 12:32 AM EDT [facility] BUN/Creatinine Ratio 42 06/18/2025 12:32 AM EDT [facility] Sodium, Plasma 151(H) 136 - 145 mmol/L 06/18/2025 12:32 AM EDT [facility] Potassium, Plasma 3.8 3.6 - 4.9 mmol/L 06/18/2025 12:32 AM EDT [facility] Chloride, Plasma 118(H) 97 - 107 mmol/L 06/18/2025 12:32 AM EDT [facility] CO2, Plasma 24 22 - 29 mmol/L 06/18/2025 12:32 AM EDT [facility] Anion Gap 9 6 - 16 mmol/L 06/18/2025 12:32 AM EDT [facility] Total Calcium, Plasma 9.0 8.9 - 10.2 mg/dL 06/18/2025 12:32 AM EDT [facility] eGFRcr 63.2 mL/min/1.7 3m*2 06/18/2025 12:32 AM EDT [facility] Comment:Reported eGFRcr in m L/min/1.73m2 is based the CKD-EPI 2020 equation that does not use a race coefficient. Blood Venous blood specimen / Unknown Venipuncture / Unknown 06/17/2025 11:58 PM EDT 06/18/2025 12:05 AM EDT us Dyllan Paul MD LAB BLOOD ORDERABLES Final Re sult [facility] [address] [place] [address] * (ABNORMAL) Hemogram (CBC) (06/17/2025 11:58 PM EDT) WBC Count 12.86(H) 3.70 - 10.30 10*3/uL LAB HEMATOLOGY METHOD 06/18/2025 12:15 AM EDT [facility] RBC Count 3.74(L) 4.60 - 6.10 10*6/uL LAB HEMATOLOGY METHOD 06/18/2025 12:15 AM EDT [facility] HGB 12.0(L) 13.7 - 17.5 g/dL LAB HEMATOLOGY METHOD 06/18/2025 12:15 AM EDT [facility] HCT 35.2(L) 40.0 - 51.0 % LAB HEMATOLOGY METHOD 06/18/2025 12:15 AM EDT [facility] Platelet Count 93(L) 155 - 369 10*3/uL LAB HEMATOLOGY METHOD 06/18/2025 12:15 AM EDT [facility] MCV 94 79 - 98 fL LAB HEMATOLOGY METHOD 06/18/2025 12:15 AM EDT [facility] MCH 32.1(H) 26.0 - 32.0 pg LAB HEMATOLOGY METHOD 06/18/2025 12:15 AM EDT [facility] MCHC 34.1 30.7 - 35.5 g/dL LAB HEMATOLOGY METHOD 06/18/2025 12:15 AM EDT [facility] RDW 16.2(H) 11.5 - 14.5 % LAB HEMATOLOGY METHOD 06/18/2025 12:15 AM EDT [facility] MPV 12.6(H) 8.8 - 12.5 fL LAB HEMATOLOGY METHOD 06/18/2025 12:15 AM EDT [facility] nRBC 0.2(H) <=0.0 per 100 WBCs LAB HEMATOLOGY METHOD 06/18/2025 12:15 AM EDT [facility] Blood Venous blood specimen / Unknown Venipuncture / Unknown 06/17/2025 11:58 PM EDT 06/18/2025 12:05 AM EDT Dyllan Paul MD LAB BLOOD ORDERABLES Final Re sult Performing Organization Address [facility] Co de Phone Number [facility] [address] [place] [address] * (ABNORMAL) Ammonia, Plasma (06/17/2025 11:58 PM EDT) Ammonia 55(H) 11 - 51 umol/L 06/18/2025 12:29 AM EDT [facility] Blood Venous blood specimen / Unknown Venipuncture / Unknown 06/17/2025 11:58 PM EDT 06/18/2025 12:04 AM EDT Michelle Iniguez APRN LAB BLOOD ORDERABLES Final R esult Performing Organization Address [facility] de Phone Number [facility] [address] [place] [address] * (ABNORMAL) POCT glucose meter (06/17/2025 5:41 [...] 06/17/2025 5:43 PM EDT [facility] Aeronautical Engineering Technologist ID Lesia Booth 5:43 PM EDT [facility] Device ID [id number] 06/17/2025 5:43 PM EDT [facility] Specimen Type POC Capillary 06/17/2025 5:[address] [facility] Blood Capillary blood specimen / Unknown 06/17/2025 5:41 PM EDT 06/17/2025 5:43 PM EDT Dyllan Paul MD LAB POINT OF CARE TE ST DOCKED DEVICE UNSOLICITED RESULTS Final Result [facility] [address] [place] [address] * (ABNORMAL) Blood gas panel, arterial (06/17/2025 3:55 PM EDT) pH, Arterial 7.45(H) 7.31 - 7.42 LAB HEMATOLOGY METHOD 06/17/2025 4:06 PM EDT [facility] pCO2, Arterial 37 32 - 45 mmHg LAB HEMATOLOGY METHOD 06/17/2025 4:06 PM EDT [facility] pO2, Arterial 82 >70 mmHg LAB HEMATOLOGY METHOD 06/17/2025 4:06 PM EDT [facility] SO2, Measured, Arterial 97 94 - 98 % LAB HEMATOLOGY METHOD 06/17/2025 4:06 PM EDT [facility] Base Excess, Arterial 1.7 -2.0 - 3.0 mmol/L LAB HEMATOLOGY METHOD 06/17/2025 4:06 PM EDT [facility] Bicarbonate, Calculated, Arterial 26 22 - 26 mmol/L LAB HEMATOLOGY METHOD 06/17/2025 4:06 PM EDT [facility] Hematocrit, Whole Blood 38.7(L) 40.0 - 51.0 % LAB HEMATOLOGY METHOD 06/17/2025 4:06 PM EDT [facility] Sodium, Whole Blood 148(H) 136 - 145 mmol/L LAB HEMATOLOGY METHOD 06/17/2025 4:06 PM EDT [facility] Potassium, Whole Blood 4.3 3.6 - 4.9 mmol/L LAB HEMATOLOGY METHOD 06/17/2025 4:06 PM EDT [facility] Chloride, Whole Blood 114(H) 97 - 107 mmol/L LAB HEMATOLOGY METHOD 06/17/2025 4:06 PM EDT [facility] Glucose, Whole Blood 177(H) 74 - 99 mg/dL LAB HEMATOLOGY METHOD 06/17/2025 4:06 PM EDT [facility] Ionized Calcium, Whole Blood 4.9 4.6 - 5.1 mg/dL LAB HEMATOLOGY METHOD 06/17/2025 4:06 PM EDT [facility] Lactate, Arterial, Whole Blood 1.9(H) 0.5 - 1.6 mmol/L LAB HEMATOLOGY METHOD 06/17/2025 4:06 PM EDT [facility] Blood Arterial blood specimen / Unknown Arterial Puncture / Unknown 06/17/2025 3:55 PM EDT 06/17/2025 4:02 PM EDT us Michelle Iniguez APRN LAB BLOOD ORDERABLES Final R esult [facility] [address] [place] [address] * CT Head wo IV Contrast (06/17/2025 [...] LAB HEMATOLOGY METHOD 06/17/2025 11:56 AM EDT [facility] pCO2, Arterial 37 32 - 45 mmHg LAB HEMATOLOGY METHOD 06/17/2025 11:56 AM EDT [facility] pO2, Arterial 80 >70 mmHg LAB HEMATOLOGY METHOD 06/17/2025 11:56 AM EDT [facility] SO2, Measured, Arterial 97 94 - 98 % LAB HEMATOLOGY METHOD 06/17/2025 11:56 AM EDT [facility] Base Excess, Arterial 3.3(H) -2.0 - 3.0 mmol/L LAB HEMATOLOGY METHOD 06/17/2025 11:56 AM EDT [facility] Bicarbonate, Calculated, Arterial 27(H) 22 - 26 mmol/L LAB HEMATOLOGY METHOD 06/17/2025 11:56 AM EDT [facility] Hematocrit, Whole Blood 35.9(L) 40.0 - 51.0 % LAB HEMATOLOGY METHOD 06/17/2025 11:56 AM EDT [facility] Sodium, Whole Blood 147(H) 136 - 145 mmol/L LAB HEMATOLOGY METHOD 06/17/2025 11:56 AM EDT [facility] Potassium, Whole Blood 3.6 3.6 - 4.9 mmol/L LAB HEMATOLOGY METHOD 06/17/2025 11:56 AM EDT [facility] Chloride, Whole Blood 112(H) 97 - 107 mmol/L LAB HEMATOLOGY METHOD 06/17/2025 11:56 AM EDT [facility] Glucose, Whole Blood 153(H) 74 - 99 mg/dL LAB HEMATOLOGY METHOD 06/17/2025 11:56 AM EDT [facility] Ionized Calcium, Whole Blood 4.9 4.6 - 5.1 mg/dL LAB HEMATOLOGY METHOD 06/17/2025 11:56 AM EDT [facility] Lactate, Arterial, Whole Blood 1.4 0.5 - 1.6 mmol/L LAB HEMATOLOGY METHOD 06/17/2025 11:56 AM EDT [facility] Blood Arterial blood specimen / Unknown Arterial Puncture / Unknown 06/17/2025 11:44 AM EDT 06/17/2025 11:54 AM EDT us Michelle Iniguez ICE CREAM MACHINE OPERATOR LAB BLOOD ORDERABLES Final R esult [facility] [address] [place] [address] * (ABNORMAL) POCT glucose meter (06/17/2025 11:42 AM EDT) POCT Glucose 154(H) 74 - 99 mg/dL 06/17/2025 11:44 AM EDT [facility] Comment:Accuracy of [...] Comment 06/17/2025 11:44 AM EDT [facility] Aeronautical Engineering Technologist ID Lesia Booth 11:44 AM EDT [facility] Device ID [id number] 06/17/2025 11:44 AM EDT [facility] Specimen Type POC Arterial 06/17/2025 11:[address] [facility] Blood Arterial blood specimen / Unknown 06/17/2025 11:42 AM EDT 06/17/2025 11:44 AM EDT Dyllan Paul MD LAB POINT OF CARE TE ST DOCKED DEVICE UNSOLICITED RESULTS Final Result Performing Organization Address City/[facility]/ZIP Co de Phone Number [facility] [address] [place] [address] * (ABNORMAL) Ammonia, Plasma (06/17/2025 8:55 AM EDT) Ammonia 89(H) 11 - 51 umol/L 06/17/2025 9:26 AM EDT [facility] Blood Venous blood specimen / Unknown Venipuncture / Unknown 06/17/2025 8:55 AM EDT 06/17/2025 9:01 AM EDT Lillian RODRIGUEZ LAB BLOOD ORDERABLES Final Result [facility] [address] [place] [address] * (ABNORMAL) Blood gas panel, arterial (06/17/2025 8:55 AM EDT) pH, Arterial 7.47(H) 7.31 - 7.42 LAB HEMATOLOGY METHOD 06/17/2025 9:05 AM EDT [facility] pCO2, Arterial 37 32 - 45 mmHg LAB HEMATOLOGY METHOD 06/17/2025 9:05 AM EDT [facility] pO2, Arterial 89 >70 mmHg LAB HEMATOLOGY METHOD 06/17/2025 9:05 AM EDT [facility] SO2, Measured, Arterial 98 94 - 98 % LAB HEMATOLOGY METHOD 06/17/2025 9:05 AM EDT [facility] Base Excess, Arterial 3.5(H) -2.0 - 3.0 mmol/L LAB HEMATOLOGY METHOD 06/17/2025 9:05 AM EDT [facility] Bicarbonate, Calculated, Arterial 27(H) 22 - 26 mmol/L LAB HEMATOLOGY METHOD 06/17/2025 9:05 AM EDT [facility] Hematocrit, Whole Blood 37.1(L) 40.0 - 51.0 % LAB HEMATOLOGY METHOD 06/17/2025 9:05 AM EDT [facility] Sodium, Whole Blood 145 136 - 145 mmol/L LAB HEMATOLOGY METHOD 06/17/2025 9:05 AM EDT [facility] Potassium, Whole Blood 3.6 3.6 - 4.9 mmol/L LAB HEMATOLOGY METHOD 06/17/2025 9:05 AM EDT [facility] Chloride, Whole Blood 114(H) 97 - 107 mmol/L LAB HEMATOLOGY METHOD 06/17/2025 9:05 AM EDT [facility] Glucose, Whole Blood 154(H) 74 - 99 mg/dL LAB HEMATOLOGY METHOD 06/17/2025 9:05 AM EDT [facility] Ionized Calcium, Whole Blood 4.9 4.6 - 5.1 mg/dL LAB HEMATOLOGY METHOD 06/17/2025 9:05 AM EDT [facility] Lactate, Arterial, Whole Blood 1.4 0.5 - 1.6 mmol/L LAB HEMATOLOGY METHOD 06/17/2025 9:05 AM EDT [facility] Blood Arterial blood specimen / Unknown Arterial Puncture / Unknown 06/17/2025 8:55 AM EDT 06/17/2025 9:02 AM EDT us Michelle Iniguez ICE CREAM MACHINE OPERATOR LAB BLOOD ORDERABLES Final R esult [facility] [address] [place] [address] * CO CRITICAL CARE, E/M 30-74 MINUTES (06/17/2025 8:36 [...] for testing. Comment 06/17/2025 5:30 AM EDT [facility] Aeronautical Engineering Technologist ID Nir Murcia 5:30 AM EDT [facility] Device ID [id number] 06/17/2025 5:30 AM EDT [facility] Specimen Type POC Capillary 06/17/2025 5:30 AM EDT [email or web address] Blood Capillary blood specimen / Unknown 06/17/2025 5:28 AM EDT 06/17/2025 5:30 AM EDT Dyllan Paul MD LAB POINT OF CARE TE ST DOCKED DEVICE UNSOLICITED RESULTS Final Result Performing Organization Address [facility]/ZIP Co de Phone Number [facility] [address] [place] [address] * (ABNORMAL) Ammonia, Plasma (06/17/2025 3:30 AM EDT) Ammonia 83(H) 11 - 51 umol/L 06/17/2025 4:04 AM EDT [facility] Comment:Improper specimen marquez ndling may falsely increase results. Blood Venous blood specimen / Unknown Venipuncture / Unknown 06/17/2025 3:30 AM EDT 06/17/2025 3:34 AM EDT Michelle Iniguez APRN LAB BLOOD ORDERABLES Final R esult Performing Organization Address City/[facility]/ZIP Co de Phone Number [facility] [address] [place] [address] * (ABNORMAL) Blood gas panel, arterial (06/17/2025 3:30 AM EDT) pH, Arterial 7.46(H) 7.31 - 7.42 LAB HEMATOLOGY METHOD 06/17/2025 3:36 AM EDT [facility] pCO2, Arterial 38 32 - 45 mmHg LAB HEMATOLOGY METHOD 06/17/2025 3:36 AM EDT [facility] pO2, Arterial 123 >70 mmHg LAB HEMATOLOGY METHOD 06/17/2025 3:36 AM EDT [facility] SO2, Measured, Arterial 100(H) 94 - 98 % LAB HEMATOLOGY METHOD 06/17/2025 3:36 AM EDT [facility] Base Excess, Arterial 2.9 -2.0 - 3.0 mmol/L LAB HEMATOLOGY METHOD 06/17/2025 3:36 AM EDT [facility] Bicarbonate, Calculated, Arterial 27(H) 22 - 26 mmol/L LAB HEMATOLOGY METHOD 06/17/2025 3:36 AM EDT [facility] Hematocrit, Whole Blood 36.8(L) 40.0 - 51.0 % LAB HEMATOLOGY METHOD 06/17/2025 3:36 AM EDT [facility] Sodium, Whole Blood 147(H) 136 - 145 mmol/L LAB HEMATOLOGY METHOD 06/17/2025 3:36 AM EDT [facility] Potassium, Whole Blood 3.5(L) 3.6 - 4.9 mmol/L LAB HEMATOLOGY METHOD 06/17/2025 3:36 AM EDT [facility] Chloride, Whole Blood 111(H) 97 - 107 mmol/L LAB HEMATOLOGY METHOD 06/17/2025 3:36 AM EDT [facility] Glucose, Whole Blood 187(H) 74 - 99 mg/dL LAB HEMATOLOGY METHOD 06/17/2025 3:36 AM EDT [facility] Ionized Calcium, Whole Blood 4.9 4.6 - 5.1 mg/dL LAB HEMATOLOGY METHOD 06/17/2025 3:36 AM EDT [facility] Lactate, Arterial, Whole Blood 1.7(H) 0.5 - 1.6 mmol/L LAB HEMATOLOGY METHOD 06/17/2025 3:36 AM EDT [facility] Blood Arterial blood specimen / Unknown Arterial Puncture / Unknown 06/17/2025 3:30 AM EDT 06/17/2025 3:34 AM EDT us Michelle Iniguez APRN LAB BLOOD ORDERABLES Final R esult [facility] [address] [place] [address] * (ABNORMAL) Free T4, Plasma (06/17/2025 12:24 AM EDT) Free T4, Plasma 0.7(L) 0.8 - 1.7 ng/dL 06/17/2025 8:59 AM EDT [facility] Blood Venous blood specimen / Unknown Venipuncture / Unknown 06/17/2025 12:24 AM EDT 06/17/2025 12:36 AM EDT us Lillian RODRIGUEZ LAB BLOOD ORDERABLES Final Result [facility] [address] [place] [address] * Thyroid Stimulating Hormone, Plasma (06/17/2025 12:24 AM EDT) Pathologist [facility] Thyroid Stimulating Hormone, Plasma 1.19 0.40 - 4.20 uIU/mL 06/17/2025 8:59 AM EDT [facility] Blood Venous blood specimen / Unknown Venipuncture / Unknown 06/17/2025 12:24 AM EDT 06/17/2025 12:36 AM EDT Lillian RODRIGUEZ LAB BLOOD ORDERABLES Final Result Performing Organization Address City/[facility]/ZIP Co de Phone Number [facility] [address] [place] [address] * (ABNORMAL) Blood gas panel, arterial (06/17/2025 12:24 AM EDT) Pathologist [facility] pH, Arterial 7.46(H) 7.31 - 7.42 LAB HEMATOLOGY METHOD 06/17/2025 12:41 AM EDT [facility] pCO2, Arterial 39 32 - 45 mmHg LAB HEMATOLOGY METHOD 06/17/2025 12:41 AM EDT [facility] pO2, Arterial 90 >70 mmHg LAB HEMATOLOGY METHOD 06/17/2025 12:41 AM EDT [facility] SO2, Measured, Arterial 98 94 - 98 % LAB HEMATOLOGY METHOD 06/17/2025 12:41 AM EDT [facility] Base Excess, Arterial 3.3(H) -2.0 - 3.0 mmol/L LAB HEMATOLOGY METHOD 06/17/2025 12:41 AM EDT [facility] Bicarbonate, Calculated, Arterial 27(H) 22 - 26 mmol/L LAB HEMATOLOGY METHOD 06/17/2025 12:41 AM EDT [facility] Hematocrit, Whole Blood 36.5(L) 40.0 - 51.0 % LAB HEMATOLOGY METHOD 06/17/2025 12:41 AM EDT [facility] Sodium, Whole Blood 148(H) 136 - 145 mmol/L LAB HEMATOLOGY METHOD 06/17/2025 12:41 AM EDT [facility] Potassium, Whole Blood 3.7 3.6 - 4.9 mmol/L LAB HEMATOLOGY METHOD 06/17/2025 12:41 AM EDT [facility] Chloride, Whole Blood 112(H) 97 - 107 mmol/L LAB HEMATOLOGY METHOD 06/17/2025 12:41 AM EDT [facility] Glucose, Whole Blood 159(H) 74 - 99 mg/dL LAB HEMATOLOGY METHOD 06/17/2025 12:41 AM EDT [facility] Ionized Calcium, Whole Blood 4.8 4.6 - 5.1 mg/dL LAB HEMATOLOGY METHOD 06/17/2025 12:41 AM EDT [facility] Lactate, Arterial, Whole Blood 1.7(H) 0.5 - 1.6 mmol/L LAB HEMATOLOGY METHOD 06/17/2025 12:41 AM EDT [facility] Blood Arterial blood specimen / Unknown Arterial Puncture / Unknown 06/17/2025 12:24 AM EDT 06/17/2025 12:34 AM EDT us Michelle Iniguez APRN LAB BLOOD ORDERABLES Final R esult [facility] [address] [place] [address] * Phosphorus (06/17/2025 12:24 AM EDT) Phosphorus, Plasma 2.7 2.5 - 4.5 mg/dL 06/17/2025 1:04 AM EDT [facility] Blood Venous blood specimen / Unknown Venipuncture / Unknown 06/17/2025 12:24 AM EDT 06/17/2025 12:36 AM EDT us Dyllan Paul MD LAB BLOOD ORDERABLES Final Re sult [facility] [address] [place] [address] * Magnesium (06/17/2025 12:24 AM EDT) Magnesium, Plasma 2.3 1.9 - 2.4 mg/dL 06/17/2025 1:04 AM EDT [facility] Blood Venous blood specimen / Unknown Venipuncture / Unknown 06/17/2025 12:24 AM EDT 06/17/2025 12:36 AM EDT us Dyllan Paul MD LAB BLOOD ORDERABLES Final Re sult [facility] [address] [place] [address] * (ABNORMAL) Basic metabolic panel (06/17/2025 12:24 AM EDT) Glucose, Plasma 163(H) 74 - 99 mg/dL 06/17/2025 1:04 AM EDT [facility] BUN, Plasma 51(H) 8 - 23 mg/dL 06/17/2025 1:04 AM EDT [facility] Creatinine, Plasma 1.37(H) 0.70 - 1.20 mg/dL 06/17/2025 1:04 AM EDT [facility] BUN/Creatinine Ratio 37 06/17/2025 1:04 AM EDT [facility] Sodium, Plasma 146(H) 136 - 145 mmol/L 06/17/2025 1:04 AM EDT [facility] Potassium, Plasma 4.1 3.6 - 4.9 mmol/L 06/17/2025 1:04 AM EDT [facility] Chloride, Plasma 112(H) 97 - 107 mmol/L 06/17/2025 1:04 AM EDT [facility] CO2, Plasma 24 22 - 29 mmol/L 06/17/2025 1:04 AM EDT [facility] Anion Gap 10 6 - 16 mmol/L 06/17/2025 1:04 AM EDT [facility] Total Calcium, Plasma 8.7(L) 8.9 - 10.2 mg/dL 06/17/2025 1:04 AM EDT [facility] eGFRcr 55.5 mL/min/1.7 3m*2 06/17/2025 1:04 AM EDT [facility] Comment:Reported eGFRcr in m L/min/1.73m2 is based the CKD-EPI 2020 equation that does not use a race coefficient. Blood Venous blood specimen / Unknown Venipuncture / Unknown 06/17/2025 12:24 AM EDT 06/17/2025 12:36 AM EDT us Dyllan Paul MD LAB BLOOD ORDERABLES Final Re sult [facility] [address] [place] [address] * (ABNORMAL) Hemogram (CBC) (06/17/2025 12:24 AM EDT) WBC Count 13.51(H) 3.70 - 10.30 10*3/uL LAB HEMATOLOGY METHOD 06/17/2025 12:45 AM EDT [facility] RBC Count 3.70(L) 4.60 - 6.10 10*6/uL LAB HEMATOLOGY METHOD 06/17/2025 12:45 AM EDT [facility] HGB 12.1(L) 13.7 - 17.5 g/dL LAB HEMATOLOGY METHOD 06/17/2025 12:45 AM EDT [facility] HCT 34.3(L) 40.0 - 51.0 % LAB HEMATOLOGY METHOD 06/17/2025 12:45 AM EDT [facility] Platelet Count 99(L) 155 - 369 10*3/uL LAB HEMATOLOGY METHOD 06/17/2025 12:45 AM EDT [facility] MCV 93 79 - 98 fL LAB HEMATOLOGY METHOD 06/17/2025 12:45 AM EDT [facility] MCH 32.7(H) 26.0 - 32.0 pg LAB HEMATOLOGY METHOD 06/17/2025 12:45 AM EDT [facility] MCHC 35.3 30.7 - 35.5 g/dL LAB HEMATOLOGY METHOD 06/17/2025 12:45 AM EDT [facility] RDW 15.8(H) 11.5 - 14.5 % LAB HEMATOLOGY METHOD 06/17/2025 12:45 AM EDT [facility] MPV 12.8(H) 8.8 - 12.5 fL LAB HEMATOLOGY METHOD 06/17/2025 12:45 AM EDT [facility] nRBC 0.1(H) <=0.0 per 100 WBCs LAB HEMATOLOGY METHOD 06/17/2025 12:45 AM EDT [facility] Blood Venous blood specimen / Unknown Venipuncture / Unknown 06/17/2025 12:24 AM EDT 06/17/2025 12:38 AM EDT Dyllan Paul MD LAB BLOOD ORDERABLES Final Re sult Performing Organization Address City/[facility]/ZIP Co de Phone Number [facility] [address] [place] [address] * (ABNORMAL) POCT glucose meter (06/17/2025 12:15 AM EDT) Pathologist [facility] POCT Glucose 151(H) 74 - 99 mg/dL 06/17/2025 12:17 AM EDT [facility] Comment:Accuracy of [...] for testing. Comment 06/17/2025 12:17 AM EDT [facility] Aeronautical Engineering Technologist ID Nir Murcia 12:17 AM EDT [facility] Device ID [id number] 06/17/2025 12:17 AM EDT [facility] Specimen Type POC Capillary 06/17/2025 12:[address] [facility] Blood Capillary blood specimen / Unknown 06/17/2025 12:15 AM EDT 06/17/2025 12:17 AM EDT us Dyllan Paul MD LAB POINT OF CARE TE ST DOCKED DEVICE UNSOLICITED RESULTS Final Result Performing Organization Address City/[facility]/ZIP Co de Phone Number [facility] [address] [place] [address] * (ABNORMAL) Blood gas panel, arterial (06/16/2025 8:32 PM EDT) pH, Arterial 7.48(H) 7.31 - 7.42 LAB HEMATOLOGY METHOD 06/16/2025 8:39 PM EDT [facility] pCO2, Arterial 37 32 - 45 mmHg LAB HEMATOLOGY METHOD 06/16/2025 8:39 PM EDT [facility] pO2, Arterial 99 >70 mmHg LAB HEMATOLOGY METHOD 06/16/2025 8:39 PM EDT [facility] SO2, Measured, Arterial 99(H) 94 - 98 % LAB HEMATOLOGY METHOD 06/16/2025 8:39 PM EDT [facility] Base Excess, Arterial 4.0(H) -2.0 - 3.0 mmol/L LAB HEMATOLOGY METHOD 06/16/2025 8:39 PM EDT [facility] Bicarbonate, Calculated, Arterial 28(H) 22 - 26 mmol/L LAB HEMATOLOGY METHOD 06/16/2025 8:39 PM EDT [facility] Hematocrit, Whole Blood 36.1(L) 40.0 - 51.0 % LAB HEMATOLOGY METHOD 06/16/2025 8:39 PM EDT [facility] Sodium, Whole Blood 145 136 - 145 mmol/L LAB HEMATOLOGY METHOD 06/16/2025 8:39 PM EDT [facility] Potassium, Whole Blood 3.4(L) 3.6 - 4.9 mmol/L LAB HEMATOLOGY METHOD 06/16/2025 8:39 PM EDT [facility] Chloride, Whole Blood 110(H) 97 - 107 mmol/L LAB HEMATOLOGY METHOD 06/16/2025 8:39 PM EDT [facility] Glucose, Whole Blood 171(H) 74 - 99 mg/dL LAB HEMATOLOGY METHOD 06/16/2025 8:39 PM EDT [facility] Ionized Calcium, Whole Blood 4.7 4.6 - 5.1 mg/dL LAB HEMATOLOGY METHOD 06/16/2025 8:39 PM EDT [facility] Lactate, Arterial, Whole Blood 1.5 0.5 - 1.6 mmol/L LAB HEMATOLOGY METHOD 06/16/2025 8:39 PM EDT [facility] Blood Arterial blood specimen / Unknown Arterial Puncture / Unknown 06/16/2025 8:32 PM EDT 06/16/2025 8:36 PM EDT us Michelle Iniguez APRN LAB BLOOD ORDERABLES Final R esult Performing Organization Address City/[facility]/ZIP Co de Phone Number [facility] [address] [place] [address] * (ABNORMAL) POCT glucose meter (06/16/2025 5:31 [...] Comment 06/16/2025 5:33 PM EDT [facility] Aeronautical Engineering Technologist ID Agatha Dasilva 06/16/2025 5:33 PM EDT [facility] Device ID [id number] 06/16/2025 5:[address] [facility] Specimen Type POC Arterial 06/16/2025 5:[address] [facility] Blood Arterial blood specimen / Unknown 06/16/2025 5:31 PM EDT 06/16/2025 5:33 PM EDT us Dyllan Paul MD LAB POINT OF CARE TE ST DOCKED DEVICE UNSOLICITED RESULTS Final Result Performing Organization Address City/[facility] Co de Phone Number [facility] [address] [place] [address] * (ABNORMAL) Ammonia, Plasma (06/16/2025 5:21 PM EDT) Ammonia 135(H) 11 - 51 umol/L 06/16/2025 6:06 PM EDT [facility] Blood Venous blood specimen / Unknown Venipuncture / Unknown 06/16/2025 5:21 PM EDT 06/16/2025 5:30 PM EDT Michelle Iniguez APRN LAB BLOOD ORDERABLES Final R esult [facility] [address] [place] [address] * (ABNORMAL) Comprehensive metabolic panel (06/16/2025 5:21 PM EDT) Glucose, Plasma 189(H) 74 - 99 mg/dL 06/16/2025 6:13 PM EDT [facility] BUN, Plasma 53(H) 8 - 23 mg/dL 06/16/2025 6:13 PM EDT [facility] Creatinine, Plasma 1.39(H) 0.70 - 1.20 mg/dL 06/16/2025 6:13 PM EDT [facility] BUN/Creatinine Ratio 38 06/16/2025 6:13 PM EDT [facility] Sodium, Plasma 145 136 - 145 mmol/L 06/16/2025 6:13 PM EDT [facility] Potassium, Plasma 3.6 3.6 - 4.9 mmol/L 06/16/2025 6:13 PM EDT [facility] Chloride, Plasma 111(H) 97 - 107 mmol/L 06/16/2025 6:13 PM EDT [facility] CO2, Plasma 24 22 - 29 mmol/L 06/16/2025 6:13 PM EDT [facility] Anion Gap 10 6 - 16 mmol/L 06/16/2025 6:13 PM EDT [facility] Total Calcium, Plasma 8.5(L) 8.9 - 10.2 mg/dL 06/16/2025 6:13 PM EDT [facility] Total Protein 4.7(L) 6.3 - 7.9 g/dL 06/16/2025 6:13 PM EDT [facility] Albumin, Plasma 2.7(L) 3.5 - 5.2 g/dL 06/16/2025 6:13 PM EDT [facility] AST, Plasma 48 10 - 50 U/L 06/16/2025 6:13 PM EDT [facility] ALT, Plasma 24 10 - 50 U/L 06/16/2025 6:13 PM EDT [facility] Alkaline Phosphatase, Plasma 159(H) 40 - 115 U/L 06/16/2025 6:13 PM EDT [facility] Total Bilirubin, Plasma 2.8(H) 0.2 - 1.1 mg/dL 06/16/2025 6:13 PM EDT [facility] eGFRcr 54.5 mL/min/1.7 3m*2 06/16/2025 6:13 PM EDT [facility] Comment:Reported eGFRcr in m L/min/1.73m2 is based the CKD-EPI 2020 equation that does not use a race coefficient. Blood Venous blood specimen / Unknown Venipuncture / Unknown 06/16/2025 5:21 PM EDT 06/16/2025 5:41 PM EDT us Michelle Iniguez APRN LAB BLOOD ORDERABLES Final R esult [facility] [address] [place] [address] * (ABNORMAL) Blood gas panel, arterial (06/16/2025 5:20 PM EDT) pH, Arterial 7.47(H) 7.31 - 7.42 LAB HEMATOLOGY METHOD 06/16/2025 5:45 PM EDT [facility] pCO2, Arterial 37 32 - 45 mmHg LAB HEMATOLOGY METHOD 06/16/2025 5:45 PM EDT [facility] pO2, Arterial 66(L) >70 mmHg LAB HEMATOLOGY METHOD 06/16/2025 5:45 PM EDT [facility] SO2, Measured, Arterial 94 94 - 98 % LAB HEMATOLOGY METHOD 06/16/2025 5:45 PM EDT [facility] Base Excess, Arterial 3.2(H) -2.0 - 3.0 mmol/L LAB HEMATOLOGY METHOD 06/16/2025 5:45 PM EDT [facility] Bicarbonate, Calculated, Arterial 27(H) 22 - 26 mmol/L LAB HEMATOLOGY METHOD 06/16/2025 5:45 PM EDT [facility] Hematocrit, Whole Blood 36.2(L) 40.0 - 51.0 % LAB HEMATOLOGY METHOD 06/16/2025 5:45 PM EDT [facility] Sodium, Whole Blood 142 136 - 145 mmol/L LAB HEMATOLOGY METHOD 06/16/2025 5:45 PM EDT [facility] Potassium, Whole Blood 3.4(L) 3.6 - 4.9 mmol/L LAB HEMATOLOGY METHOD 06/16/2025 5:45 PM EDT [facility] Chloride, Whole Blood 111(H) 97 - 107 mmol/L LAB HEMATOLOGY METHOD 06/16/2025 5:45 PM EDT [facility] Glucose, Whole Blood 185(H) 74 - 99 mg/dL LAB HEMATOLOGY METHOD 06/16/2025 5:45 PM EDT [facility] Ionized Calcium, Whole Blood 4.8 4.6 - 5.1 mg/dL LAB HEMATOLOGY METHOD 06/16/2025 5:45 PM EDT [facility] Lactate, Arterial, Whole Blood 1.8(H) 0.5 - 1.6 mmol/L LAB HEMATOLOGY METHOD 06/16/2025 5:45 PM EDT [facility] Blood Arterial blood specimen / Unknown Arterial Puncture / Unknown 06/16/2025 5:20 PM EDT 06/16/2025 5:43 PM EDT us Michelle Iniguez APRN LAB BLOOD ORDERABLES Final R esult [facility] [address] [place] [address] * (ABNORMAL) POCT glucose meter (06/16/2025 11:40 AM EDT) POCT Glucose 159(H) 74 - 99 mg/dL 06/16/2025 11:42 AM EDT [email or web address] Comment:Accuracy of a glucos e result [...] Comment 06/16/2025 11:42 AM EDT [facility] Aeronautical Engineering Technologist ID Agatha Dasilva 06/16/2025 11:[address] [facility] Device ID [id number] 06/16/2025 11:[address] [facility] Specimen Type POC Arterial 06/16/2025 11:42 AM EDT [email or web address] Blood Arterial blood specimen / Unknown 06/16/2025 11:40 AM EDT 06/16/2025 11:42 AM EDT Dyllan Paul MD LAB POINT OF CARE TE ST DOCKED DEVICE UNSOLICITED RESULTS Final Result Performing Organization Address City/State/[facility] Co de Phone Number [facility] [address] [place] [address] * CO CRITICAL CARE, E/M 30-74 MINUTES (06/16/2025 10:30 [...] mean PAP 34 mmHg CINTIA ISCV PA CO(ACCEL) 35.0 mmHg [facility] ISCV PA acc slope 847.4 cm/s2 [facility] ISCV MPA diam 20 mm [facility]IA ISCV MPA area 3.1 cm2 CINTIA ISCV LV EDV(MOD-4ch) 135 mL [facility]INTIA ISCV LV ESV(MOD4ch) 46 mL ICNTIA ISCV EF(MOD-sp4) 66 % [facility]INTIA ISCV LV [...] is no recent study available for direct [id number] comparison. Left Ventricle Based on the linear [...] is no recent study available for direct [id number] comparison. Raymond Katz APRN CV ECHO PROCEDURES Final Resu lt * (ABNORMAL) POCT glucose meter (06/16/2025 8:09 AM EDT) [facility] POCT Glucose 161(H) 74 - 99 mg/dL 06/16/2025 8:11 AM EDT [email or web address] Comment:Accuracy of a glucos e result [...] for testing. Comment 06/16/2025 8:11 AM EDT [email or web address] Aeronautical Engineering Technologist ID Agatha Dasilva 06/16/2025 8:11 AM EDT [email or web address] Device ID [id number] 06/16/2025 8:11 AM EDT [email or web address] Specimen Type POC Arterial 06/16/2025 8:[address] [facility] Blood Arterial blood specimen / Unknown 06/16/2025 8:09 AM EDT 06/16/2025 8:11 AM EDT Dyllan Paul MD LAB POINT OF CARE TE ST DOCKED DEVICE UNSOLICITED RESULTS Final Result [facility] [address] [place] [address] * Hemoglobin A1c (06/16/2025 4:24 AM EDT) Hemoglobin A1c 5.4 <5.7 % 06/16/2025 12:01 PM EDT [facility] Blood Venous blood specimen / Unknown Venipuncture / Unknown 06/16/2025 4:24 AM EDT 06/16/2025 4:31 AM EDT Narrative [facility] - 06/16/2025 12:01 PM EDT HA1C Interpretive Data: Diagnosis of Diabetes: Diabetic > or = 6.5% Pre-diabetic 5.7 to 6.4% Non-diabetic < or = 5.6% Glycemic Targets for Type I and Type II Diabetics: Non- Adults <7.0% Adults <6.0% Children and Adolescents <7.5% Source: [place] [employer]. Standards of medical care in diabetes,2017. Diabetes Care.2017:40 (suppl 1):S1-S135. [place] Lillian RODRIGUEZ LAB BLOOD ORDERABLES Final Result Performing Organization Address City/[facility]/ZIP Co de Phone Number [facility] [address] [place] [address] * Triglycerides (06/16/2025 4:24 AM EDT) Triglycerides, Plasma 103 <150 mg/dL 06/16/2025 5:02 AM EDT [facility] Comment: Triglyceride Reference Range (age >17 years): Desirable: <150 mg/dL Borderline high: 150 to 199 mg/dL High: 200 to 499 mg/dL Very high: >499 mg/dL Increased risk of pancreatitis: >1000 mg/dL Fasting greater than or equal to 12 hours? No 06/16/2025 5:02 AM EDT [facility] Blood Venous blood specimen / Unknown Venipuncture / Unknown 06/16/2025 4:24 AM EDT 06/16/2025 4:34 AM EDT us Raymond Katz APRN LAB BLOOD ORDERABLES Final Re sult Performing Organization Address City/[facility]/ZIP Co de Phone Number [facility] [address] [place] [address] * (ABNORMAL) Phosphorus (06/16/2025 4:24 AM EDT) Phosphorus, Plasma 1.5(L) 2.5 - 4.5 mg/dL 06/16/2025 5:02 AM EDT [facility] Blood Venous blood specimen / Unknown Venipuncture / Unknown 06/16/2025 4:24 AM EDT 06/16/2025 4:34 AM EDT Dyllan Paul MD LAB BLOOD ORDERABLES Final Re sult Performing Organization Address [facility]/ZIP Co de Phone Number [facility] [address] [place] [address] * Magnesium (06/16/2025 4:24 AM EDT) Magnesium, Plasma 2.4 1.9 - 2.4 mg/dL 06/16/2025 5:02 AM EDT [facility] Blood Venous blood specimen / Unknown Venipuncture / Unknown 06/16/2025 4:24 AM EDT 06/16/2025 4:34 AM EDT us Dyllan Paul MD LAB BLOOD ORDERABLES Final Re sult Performing Organization Address [facility]/ZIP Co de Phone Number [facility] [address] [place] [address] * (ABNORMAL) Basic metabolic panel (06/16/2025 4:24 AM EDT) Glucose, Plasma 195(H) 74 - 99 mg/dL 06/16/2025 5:02 AM EDT [facility] BUN, Plasma 56(H) 8 - 23 mg/dL 06/16/2025 5:02 AM EDT [facility] Creatinine, Plasma 1.60(H) 0.70 - 1.20 mg/dL 06/16/2025 5:02 AM EDT [facility] BUN/Creatinine Ratio 35 06/16/2025 5:02 AM EDT [facility] Sodium, Plasma 142 136 - 145 mmol/L 06/16/2025 5:02 AM EDT [facility] Potassium, Plasma 3.1(L) 3.6 - 4.9 mmol/L 06/16/2025 5:02 AM EDT [facility] Chloride, Plasma 108(H) 97 - 107 mmol/L 06/16/2025 5:02 AM EDT [facility] CO2, Plasma 24 22 - 29 mmol/L 06/16/2025 5:02 AM EDT [facility] Anion Gap 10 6 - 16 mmol/L 06/16/2025 5:02 AM EDT [facility] Total Calcium, Plasma 8.5(L) 8.9 - 10.2 mg/dL 06/16/2025 5:02 AM EDT [facility] eGFRcr 46.1 mL/min/1.7 3m*2 06/16/2025 5:02 AM EDT [facility] Comment:Reported eGFRcr in m L/min/1.73m2 is based the CKD-EPI 2020 equation that does not use a race coefficient. Blood Venous blood specimen / Unknown Venipuncture / Unknown 06/16/2025 4:24 AM EDT 06/16/2025 4:34 AM EDT us Dyllan Paul MD LAB BLOOD ORDERABLES Final Re sult [facility] [address] [place] [address] * (ABNORMAL) Hemogram (CBC) (06/16/2025 4:24 AM EDT) WBC Count 12.74(H) 3.70 - 10.30 10*3/uL LAB HEMATOLOGY METHOD 06/16/2025 4:45 AM EDT [facility] RBC Count 3.66(L) 4.60 - 6.10 10*6/uL LAB HEMATOLOGY METHOD 06/16/2025 4:45 AM EDT [facility] HGB 11.8(L) 13.7 - 17.5 g/dL LAB HEMATOLOGY METHOD 06/16/2025 4:45 AM EDT [facility] HCT 34.2(L) 40.0 - 51.0 % LAB HEMATOLOGY METHOD 06/16/2025 4:45 AM EDT [facility] Platelet Count 67(L) 155 - 369 10*3/uL LAB HEMATOLOGY METHOD 06/16/2025 4:45 AM EDT [facility] MCV 93 79 - 98 fL LAB HEMATOLOGY METHOD 06/16/2025 4:45 AM EDT [facility] MCH 32.2(H) 26.0 - 32.0 pg LAB HEMATOLOGY METHOD 06/16/2025 4:45 AM EDT [facility] MCHC 34.5 30.7 - 35.5 g/dL LAB HEMATOLOGY METHOD 06/16/2025 4:45 AM EDT [facility] RDW 15.5(H) 11.5 - 14.5 % LAB HEMATOLOGY METHOD 06/16/2025 4:45 AM EDT [facility] MPV 12.7(H) 8.8 - 12.5 fL LAB HEMATOLOGY METHOD 06/16/2025 4:45 AM EDT [facility] nRBC 0.0 <=0.0 per 100 WBCs LAB HEMATOLOGY METHOD 06/16/2025 4:45 AM EDT [facility] Blood Venous blood specimen / Unknown Venipuncture / Unknown 06/16/2025 4:24 AM EDT 06/16/2025 4:31 AM EDT us Dyllan Paul MD LAB BLOOD ORDERABLES Final Re sult [facility] [address] [place] [address] * XR Chest 1 View (06/16/2025 4:23 [...] MD on 06/16/2025 8:36 AM Corry Doss ICE CREAM MACHINE OPERATOR, DNP IMG XR PROCEDURES Fi nal Result * Streptococcus pneumoniae and Legionella Urinary Antigen (06/15/2025 2:53 PM EDT) Legionella pneumophila serogroup 1 Antigen Result (Urine) Negative Negative 06/16/2025 6:33 AM EDT [facility] Streptococcus pneumoniae Antigen Result (Urine) Negative Negative 06/16/2025 6:33 AM EDT [facility] Urine Urine specimen obtained by clean catch procedure / Unknown Non-blood Collection / Unknown 06/15/2025 2:53 PM EDT 06/15/2025 3:17 PM EDT Corry Doss APRN, DNP LAB MICROBIOLOGY - G ENERAL ORDERABLES Final Result [facility] [address] [place] [address] * Mycoplasma Pneumoniae DNA By PCR (06/15/2025 2:49 PM EDT) Mycoplasma pneumoniae Source aspirate 06/23/2025 9:22 PM EDT [facility] Mycoplasma pneumoniae by PCR Not Detected 06/23/2025 9:22 PM EDT [facility] ([facility]) Aspirate Non-blood Collection / Unknown 06/15/2025 2:49 PM EDT 06/15/2025 3:34 PM EDT Narrative [facility] ([facility]) - 06/23/2025 9:22 PM EDT NOT DETECTED - A negative result does not rule out the presence of PCR inhibitors in the patient specimen or assay specific nucleic acid in concentrations below the level of detection by the assay. INTERPRETIVE INFORMATION: Mycoplasma pneumoniae by PCR This test was developed and its performance characteristics determined by [employer]. It has not been cleared or approved by the [place] Food and Drug Administration. This test was performed in a CLIA certified laboratory and is intended for clinical purposes. Performed By: [facility] [address] [place] [address] Plating Technician: Sotero Banuelos MD, PhD CLIA Number: [id number] Corry Doss APRN, DNP LAB REF LAB BLOOD AN D FLUID ORD Final Result Performing Organization Address City/[facility]/ZIP Co de Phone Number [facility] ([facility]) [address] [place] [address] * Nasopharyngeal Respiratory Panel (06/15/2025 2:47 PM EDT) Pathologist [facility] Nasopharyngeal Respiratory PCR Interpretation Not Detected for all analytes Not Detected for all analytes 06/15/2025 5:19 PM EDT [facility] Swab Nasopharyngeal structure / Unknown Non-blood Collection / Unknown 06/15/2025 2:47 PM EDT 06/15/2025 3:18 PM EDT Narrative [facility] - 06/15/2025 5:19 PM EDT [...] Respiratory PCR Panel is performed using the [employer] instrument. This test is FDA approved for use with Nasopharyngeal swabs only. This test is used for clinical purposes. It should not be regarded as investigational or for research. The [facility] Clinical Microbiology Laboratory is certified under the Clinical Laboratory Improvement Amendments of 1988 (CLIA-88) as qualified to perform high complexity clinical laboratory testing. Corry Doss APRN, [facility] MICROBIOLOGY - [facility] ORDERABLES Final Result [facility] [address] [place] [address] * (ABNORMAL) Mycoplasma Pneumoniae Antibody, IgG & IgM (06/15/2025 2:42 PM EDT) Mycoplasma Pneumoniae Antibody IgM 0.11 <=0.76 U/L 06/19/2025 5:44 AM EDT [facility] ([facility]) Mycoplasma Pneumoniae Antibody IgG 0.20(H) <=0.09 U/L 06/19/2025 5:44 AM EDT [facility] ([facility]) Blood Arterial blood specimen / Unknown Arterial Puncture / Unknown 06/15/2025 2:42 PM EDT 06/15/2025 3:02 PM EDT Narrative [facility] ([facility]) - 06/19/2025 5:44 AM EDT INTERPRETIVE INFORMATION: [...] more than 12 months post-infection. Performed By: [employer] [address] [place] [address] Plating Technician: Sotero Banuelos MD, PhD CLIA Number: [id number] Corry Doss ICE CREAM MACHINE OPERATOR, DNP LAB BLOOD ORDERABLES Final Result [email or web address]) [address] [place], [place] [id number] * (ABNORMAL) Blood gas panel, arterial (06/15/2025 11:39 AM EDT) pH, Arterial 7.47(H) 7.31 - 7.42 LAB HEMATOLOGY METHOD 06/15/2025 11:48 AM EDT [facility] pCO2, Arterial 35 32 - 45 mmHg LAB HEMATOLOGY METHOD 06/15/2025 11:48 AM EDT [facility] pO2, Arterial 57(LL) >70 mmHg LAB HEMATOLOGY METHOD 06/15/2025 11:48 AM EDT [facility] SO2, Measured, Arterial 91(L) 94 - 98 % LAB HEMATOLOGY METHOD 06/15/2025 11:48 AM EDT [facility] Base Excess, Arterial 1.7 -2.0 - 3.0 mmol/L LAB HEMATOLOGY METHOD 06/15/2025 11:48 AM EDT [facility] Bicarbonate, Calculated, Arterial 25 22 - 26 mmol/L LAB HEMATOLOGY METHOD 06/15/2025 11:48 AM EDT [facility] Hematocrit, Whole Blood 36.2(L) 40.0 - 51.0 % LAB HEMATOLOGY METHOD 06/15/2025 11:48 AM EDT [facility] Sodium, Whole Blood 139 136 - 145 mmol/L LAB HEMATOLOGY METHOD 06/15/2025 11:48 AM EDT [facility] Potassium, Whole Blood 3.1(L) 3.6 - 4.9 mmol/L LAB HEMATOLOGY METHOD 06/15/2025 11:48 AM EDT [facility] Chloride, Whole Blood 107 97 - 107 mmol/L LAB HEMATOLOGY METHOD 06/15/2025 11:48 AM EDT [facility] Glucose, Whole Blood 174(H) 74 - 99 mg/dL LAB HEMATOLOGY METHOD 06/15/2025 11:48 AM EDT [facility] Ionized Calcium, Whole Blood 4.6 4.6 - 5.1 mg/dL LAB HEMATOLOGY METHOD 06/15/2025 11:48 AM EDT [facility] Lactate, Arterial, Whole Blood 1.7(H) 0.5 - 1.6 mmol/L LAB HEMATOLOGY METHOD 06/15/2025 11:48 AM EDT [facility] Blood Arterial blood specimen / Unknown Arterial Puncture / Unknown 06/15/2025 11:39 AM EDT 06/15/2025 11:44 AM EDT us Roshan Haas ICE CREAM MACHINE OPERATOR, DNP LAB BLOOD ORDERABLES Fi nal Result [facility] [address] [place] [address] * Vancomycin, random (06/15/2025 11:38 AM EDT) Vancomycin, Random, Plasma 8.2 ug/mL 06/15/2025 12:18 PM EDT [facility] Blood Venous blood specimen / Unknown Venipuncture / Unknown 06/15/2025 11:38 AM EDT 06/15/2025 11:48 AM EDT Corry Doss APRN, DNP LAB BLOOD ORDERABLES Final Result [facility] [address] [place] [address] * CO CRITICAL CARE, E/M 30-74 MINUTES (06/15/2025 9:09 [...] LAB HEMATOLOGY METHOD 06/15/2025 6:27 AM EDT [facility] pCO2, Arterial 37 32 - 45 mmHg LAB HEMATOLOGY METHOD 06/15/2025 6:27 AM EDT [facility] pO2, Arterial 61(L) >70 mmHg LAB HEMATOLOGY METHOD 06/15/2025 6:27 AM EDT [facility] SO2, Measured, Arterial 92(L) 94 - 98 % LAB HEMATOLOGY METHOD 06/15/2025 6:27 AM EDT [facility] Base Excess, Arterial 1.9 -2.0 - 3.0 mmol/L LAB HEMATOLOGY METHOD 06/15/2025 6:27 AM EDT [facility] Bicarbonate, Calculated, Arterial 26 22 - 26 mmol/L LAB HEMATOLOGY METHOD 06/15/2025 6:27 AM EDT [facility] Hematocrit, Whole Blood 35.9(L) 40.0 - 51.0 % LAB HEMATOLOGY METHOD 06/15/2025 6:27 AM EDT [facility] Sodium, Whole Blood 138 136 - 145 mmol/L LAB HEMATOLOGY METHOD 06/15/2025 6:27 AM EDT [facility] Potassium, Whole Blood 3.3(L) 3.6 - 4.9 mmol/L LAB HEMATOLOGY METHOD 06/15/2025 6:27 AM EDT [facility] Chloride, Whole Blood 108(H) 97 - 107 mmol/L LAB HEMATOLOGY METHOD 06/15/2025 6:27 AM EDT [facility] Glucose, Whole Blood 173(H) 74 - 99 mg/dL LAB HEMATOLOGY METHOD 06/15/2025 6:27 AM EDT [facility] Ionized Calcium, Whole Blood 4.5(L) 4.6 - 5.1 mg/dL LAB HEMATOLOGY METHOD 06/15/2025 6:27 AM EDT [facility] Lactate, Arterial, Whole Blood 1.5 0.5 - 1.6 mmol/L LAB HEMATOLOGY METHOD 06/15/2025 6:27 AM EDT [facility] Blood Arterial blood specimen / Unknown Arterial Puncture / Unknown 06/15/2025 6:20 AM EDT 06/15/2025 6:25 AM EDT us Roshan Haas APRN, DNP LAB BLOOD ORDERABLES Fi nal Result [facility] [address] [place] [address] * XR Chest 1 View (06/15/2025 6:12 [...] MD on 06/15/2025 11:59 PM Corry Doss APRN, DNP IMG XR PROCEDURES Fi nal Result * (ABNORMAL) Blood gas panel, arterial (06/15/2025 12:25 AM EDT) pH, Arterial 7.43(H) 7.31 - 7.42 LAB HEMATOLOGY METHOD 06/15/2025 12:36 AM EDT [facility] pCO2, Arterial 38 32 - 45 mmHg LAB HEMATOLOGY METHOD 06/15/2025 12:36 AM EDT [facility] pO2, Arterial 65(L) >70 mmHg LAB HEMATOLOGY METHOD 06/15/2025 12:36 AM EDT [facility] SO2, Measured, Arterial 93(L) 94 - 98 % LAB HEMATOLOGY METHOD 06/15/2025 12:36 AM EDT [facility] Base Excess, Arterial 1.0 -2.0 - 3.0 mmol/L LAB HEMATOLOGY METHOD 06/15/2025 12:36 AM EDT [facility] Bicarbonate, Calculated, Arterial 25 22 - 26 mmol/L LAB HEMATOLOGY METHOD 06/15/2025 12:36 AM EDT [facility] Hematocrit, Whole Blood 34.9(L) 40.0 - 51.0 % LAB HEMATOLOGY METHOD 06/15/2025 12:36 AM EDT [facility] Sodium, Whole Blood 139 136 - 145 mmol/L LAB HEMATOLOGY METHOD 06/15/2025 12:36 AM EDT [facility] Potassium, Whole Blood 3.4(L) 3.6 - 4.9 mmol/L LAB HEMATOLOGY METHOD 06/15/2025 12:36 AM EDT [facility] Chloride, Whole Blood 106 97 - 107 mmol/L LAB HEMATOLOGY METHOD 06/15/2025 12:36 AM EDT [facility] Glucose, Whole Blood 173(H) 74 - 99 mg/dL LAB HEMATOLOGY METHOD 06/15/2025 12:36 AM EDT [facility] Ionized Calcium, Whole Blood 4.5(L) 4.6 - 5.1 mg/dL LAB HEMATOLOGY METHOD 06/15/2025 12:36 AM EDT [facility] Lactate, Arterial, Whole Blood 1.8(H) 0.5 - 1.6 mmol/L LAB HEMATOLOGY METHOD 06/15/2025 12:36 AM EDT [facility] Blood Arterial blood specimen / Unknown Arterial Puncture / Unknown 06/15/2025 12:25 AM EDT 06/15/2025 12:34 AM EDT us Roshan Haas ICE CREAM MACHINE OPERATOR, DNP LAB BLOOD ORDERABLES Fi nal Result [facility] [address] [place] [address] * Phosphorus (06/15/2025 12:25 AM EDT) Phosphorus, Plasma 3.2 2.5 - 4.5 mg/dL 06/15/2025 1:04 AM EDT [facility] Blood Arterial blood specimen / Unknown Venipuncture / Unknown 06/15/2025 12:25 AM EDT 06/15/2025 12:32 AM EDT us Dyllan Paul MD LAB BLOOD ORDERABLES Final Re sult Performing Organization Address City/[facility]/ZIP Co de Phone Number [facility] [address] [place] [address] * Magnesium (06/15/2025 12:25 AM EDT) Magnesium, Plasma 2.3 1.9 - 2.4 mg/dL 06/15/2025 1:04 AM EDT [facility] Blood Arterial blood specimen / Unknown Venipuncture / Unknown 06/15/2025 12:25 AM EDT 06/15/2025 12:32 AM EDT us Dyllan Paul MD LAB BLOOD ORDERABLES Final Re sult Performing Organization Address [facility] Co de Phone Number [facility] [address] [place] [address] * (ABNORMAL) Basic metabolic panel (06/15/2025 12:25 AM EDT) Glucose, Plasma 168(H) 74 - 99 mg/dL 06/15/2025 1:04 AM EDT [facility] BUN, Plasma 58(H) 8 - 23 mg/dL 06/15/2025 1:04 AM EDT [facility] Creatinine, Plasma 2.18(H) 0.70 - 1.20 mg/dL 06/15/2025 1:04 AM EDT [facility] BUN/Creatinine Ratio 06/15/2025 1:04 AM EDT [facility] Sodium, Plasma 137 136 - 145 mmol/L 06/15/2025 1:04 AM EDT [facility] Potassium, Plasma 3.8 3.6 - 4.9 mmol/L 06/15/2025 1:04 AM EDT [facility] Chloride, Plasma 107 97 - 107 mmol/L 06/15/2025 1:04 AM EDT [facility] CO2, Plasma 23 22 - 29 mmol/L 06/15/2025 1:04 AM EDT [facility] Anion Gap 7 6 - 16 mmol/L 06/15/2025 1:04 AM EDT [facility] Total Calcium, Plasma 7.9(L) 8.9 - 10.2 mg/dL 06/15/2025 1:04 AM EDT [facility] eGFRcr 31.8 mL/min/1.7 3m*2 06/15/2025 1:04 AM EDT [facility] Comment:Reported eGFRcr in m L/min/1.73m2 is based the CKD-EPI 2020 equation that does not use a race coefficient. Blood Arterial blood specimen / Unknown Venipuncture / Unknown 06/15/2025 12:25 AM EDT 06/15/2025 12:32 AM EDT us Dyllan Paul MD LAB BLOOD ORDERABLES Final Re sult [facility] [address] [place] [address] * (ABNORMAL) Hemogram (CBC) (06/15/2025 12:25 AM EDT) WBC Count 15.49(H) 3.70 - 10.30 10*3/uL LAB HEMATOLOGY METHOD 06/15/2025 12:43 AM EDT [facility] RBC Count 3.57(L) 4.60 - 6.10 10*6/uL LAB HEMATOLOGY METHOD 06/15/2025 12:43 AM EDT [facility] HGB 11.6(L) 13.7 - 17.5 g/dL LAB HEMATOLOGY METHOD 06/15/2025 12:43 AM EDT [facility] HCT 33.1(L) 40.0 - 51.0 % LAB HEMATOLOGY METHOD 06/15/2025 12:43 AM EDT [facility] Platelet Count 68(L) 155 - 369 10*3/uL LAB HEMATOLOGY METHOD 06/15/2025 12:43 AM EDT [facility] MCV 93 79 - 98 fL LAB HEMATOLOGY METHOD 06/15/2025 12:43 AM EDT [facility] MCH 32.5(H) 26.0 - 32.0 pg LAB HEMATOLOGY METHOD 06/15/2025 12:43 AM EDT [facility] MCHC 35.0 30.7 - 35.5 g/dL LAB HEMATOLOGY METHOD 06/15/2025 12:43 AM EDT [facility] RDW 15.6(H) 11.5 - 14.5 % LAB HEMATOLOGY METHOD 06/15/2025 12:43 AM EDT [facility] MPV 12.7(H) 8.8 - 12.5 fL LAB HEMATOLOGY METHOD 06/15/2025 12:43 AM EDT [facility] nRBC 0.0 <=0.0 per 100 WBCs LAB HEMATOLOGY METHOD 06/15/2025 12:43 AM EDT [facility] Blood Arterial blood specimen / Unknown Venipuncture / Unknown 06/15/2025 12:25 AM EDT 06/15/2025 12:34 AM EDT us Dyllan Paul MD LAB BLOOD ORDERABLES Final Re sult [facility] [address] [place] [address] * (ABNORMAL) Blood gas panel, arterial (06/14/2025 6:07 PM EDT) pH, Arterial 7.41 7.31 - 7.42 LAB HEMATOLOGY METHOD 06/14/2025 6:14 PM EDT [facility] pCO2, Arterial 40 32 - 45 mmHg LAB HEMATOLOGY METHOD 06/14/2025 6:14 PM EDT [facility] pO2, Arterial 55(LL) >70 mmHg LAB HEMATOLOGY METHOD 06/14/2025 6:14 PM EDT [facility] SO2, Measured, Arterial 88(L) 94 - 98 % LAB HEMATOLOGY METHOD 06/14/2025 6:14 PM EDT [facility] Base Excess, Arterial 0.4 -2.0 - 3.0 mmol/L LAB HEMATOLOGY METHOD 06/14/2025 6:14 PM EDT [facility] Bicarbonate, Calculated, Arterial 25 22 - 26 mmol/L LAB HEMATOLOGY METHOD 06/14/2025 6:14 PM EDT [facility] Hematocrit, Whole Blood 36.1(L) 40.0 - 51.0 % LAB HEMATOLOGY METHOD 06/14/2025 6:14 PM EDT [facility] Sodium, Whole Blood 138 136 - 145 mmol/L LAB HEMATOLOGY METHOD 06/14/2025 6:14 PM EDT [facility] Potassium, Whole Blood 3.7 3.6 - 4.9 mmol/L LAB HEMATOLOGY METHOD 06/14/2025 6:14 PM EDT [facility] Chloride, Whole Blood 106 97 - 107 mmol/L LAB HEMATOLOGY METHOD 06/14/2025 6:14 PM EDT [facility] Glucose, Whole Blood 160(H) 74 - 99 mg/dL LAB HEMATOLOGY METHOD 06/14/2025 6:14 PM EDT [facility] Ionized Calcium, Whole Blood 4.5(L) 4.6 - 5.1 mg/dL LAB HEMATOLOGY METHOD 06/14/2025 6:14 PM EDT [facility] Lactate, Arterial, Whole Blood 2.1(H) 0.5 - 1.6 mmol/L LAB HEMATOLOGY METHOD 06/14/2025 6:14 PM EDT [facility] Blood Arterial blood specimen / Unknown Arterial Line / Unknown 06/14/2025 6:07 PM EDT 06/14/2025 6:13 PM EDT us Roshan Haas APRN, DNP LAB BLOOD ORDERABLES Fi nal Result [facility] [address] [place] [address] * (ABNORMAL) Blood gas panel, arterial (06/14/2025 12:09 PM EDT) pH, Arterial 7.39 7.31 - 7.42 LAB HEMATOLOGY METHOD 06/14/2025 12:20 PM EDT [facility] pCO2, Arterial 42 32 - 45 mmHg LAB HEMATOLOGY METHOD 06/14/2025 12:20 PM EDT [facility] pO2, Arterial 64(L) >70 mmHg LAB HEMATOLOGY METHOD 06/14/2025 12:20 PM EDT [facility] SO2, Measured, Arterial 92(L) 94 - 98 % LAB HEMATOLOGY METHOD 06/14/2025 12:20 PM EDT [facility] Base Excess, Arterial -0.2 -2.0 - 3.0 mmol/L LAB HEMATOLOGY METHOD 06/14/2025 12:20 PM EDT [facility] Bicarbonate, Calculated, Arterial 25 22 - 26 mmol/L LAB HEMATOLOGY METHOD 06/14/2025 12:20 PM EDT [facility] Hematocrit, Whole Blood 37.6(L) 40.0 - 51.0 % LAB HEMATOLOGY METHOD 06/14/2025 12:20 PM EDT [facility] Sodium, Whole Blood 137 136 - 145 mmol/L LAB HEMATOLOGY METHOD 06/14/2025 12:20 PM EDT [facility] Potassium, Whole Blood 3.9 3.6 - 4.9 mmol/L LAB HEMATOLOGY METHOD 06/14/2025 12:20 PM EDT [facility] Chloride, Whole Blood 107 97 - 107 mmol/L LAB HEMATOLOGY METHOD 06/14/2025 12:20 PM EDT [facility] Glucose, Whole Blood 143(H) 74 - 99 mg/dL LAB HEMATOLOGY METHOD 06/14/2025 12:20 PM EDT [facility] Ionized Calcium, Whole Blood 4.3(L) 4.6 - 5.1 mg/dL LAB HEMATOLOGY METHOD 06/14/2025 12:20 PM EDT [facility] Lactate, Arterial, Whole Blood 2.3(H) 0.5 - 1.6 mmol/L LAB HEMATOLOGY METHOD 06/14/2025 12:20 PM EDT [facility] Blood Arterial blood specimen / Unknown Arterial Line / Unknown 06/14/2025 12:09 PM EDT 06/14/2025 12:18 PM EDT us Roshan Haas APRN, DNP LAB BLOOD ORDERABLES Fi nal Result [facility] [address] [place] [address] * CO CRITICAL CARE, E/M 30-74 MINUTES (06/14/2025 9:53 [...] 8:21 AM EDT 06/14/2025 8:44 AM EDT Corry Doss APRN, DNP LAB URINE ORDERABLES Final Result [facility] [address] [place] [address] * (ABNORMAL) Urinalysis with reflex microscopic (Culture NOT Included) (06/14/2025 8:21 AM EDT) Color, Urine Red LAB URINALYSIS - AUTOMATED METHOD 06/14/2025 10:54 AM EDT [facility] Clarity, Urine Cloudy LAB URINALYSIS - AUTOMATED METHOD 06/14/2025 10:54 AM EDT [facility] Spec Dav[place], Urine 1.019 1.005 - 1.030 LAB URINALYSIS - AUTOMATED METHOD 06/14/2025 10:54 AM EDT [facility] pH, Urine <=5.0(L) 5.0 - 8.0 LAB URINALYSIS - AUTOMATED METHOD 06/14/2025 10:54 AM EDT [facility] Protein, Urine 100(A) Negative mg/dL LAB URINALYSIS - AUTOMATED METHOD 06/14/2025 10:54 AM EDT [facility] Glucose, Urine Negative Negative mg/dL LAB URINALYSIS - AUTOMATED METHOD 06/14/2025 10:54 AM EDT [facility] Ketones, Urine Negative Negative mg/dL LAB URINALYSIS - AUTOMATED METHOD 06/14/2025 10:54 AM EDT [facility] Blood, Urine Moderate(A) Negative LAB URINALYSIS - AUTOMATED METHOD 06/14/2025 10:54 AM EDT [facility] Bilirubin, Urine Small(A) Negative LAB URINALYSIS - AUTOMATED METHOD 06/14/2025 10:54 AM EDT [facility] Urobilinogen, Urine 1.0 0.2 to 1.0 mg/dL LAB URINALYSIS - AUTOMATED METHOD 06/14/2025 10:54 AM EDT [facility] Leukocytes, Urine Moderate(A) Negative LAB URINALYSIS - AUTOMATED METHOD 06/14/2025 10:54 AM EDT [facility] LAB Nitrite, Urine Positive(A) Negative LAB URINALYSIS - AUTOMATED METHOD 06/14/2025 10:54 AM EDT [facility] RBC, Urine >50(A) 0 to 3 /HPF 06/14/2025 10:54 AM EDT [facility] Comment:This result was prev iously suppressed from the chart. WBC, Urine Unable to estimate due to obscuring RBC's (UNERBC) 0 to 5 /HPF 06/14/2025 10:54 AM EDT [facility] Comment:This result was prev iously suppressed from the chart. Squamous Epithelial Cells Unable to estimate due to obscuring RBC's (UNERBC) 0 to 5 /HPF 06/14/2025 10:54 AM EDT [facility] Comment:This result was prev iously suppressed from the chart. Hyaline Casts Unable to estimate due to obscuring RBC's (UNERBC) 0 to 5 /LPF 06/14/2025 10:54 AM EDT [facility] Comment:This result was prev iously suppressed from the chart. Bacteria, Urine Unable to estimate due to obscuring RBC's (UNERBC) Negative 06/14/2025 10:54 AM EDT [facility] Comment:This result was prev iously suppressed from the chart. WBC Casts Present Absent 06/14/2025 10:54 AM EDT [facility] Comment:This result was prev iously suppressed from the chart. Red Cell/Hemoglob in Casts Present Absent 06/14/2025 10:54 AM EDT [facility] Comment:This result was prev iously suppressed from the chart. Urine Urine specimen from urinary conduit / Unknown Non-blood Collection / Unknown 06/14/2025 8:21 AM EDT 06/14/2025 8:44 AM EDT Narrative [facility] - 06/14/2025 10:54 AM EDT Urinalysis dipstick results may be inaccurate due to specimen color or an interfering substance in the specimen. Performed by manual method us Corry Doss APRN, DNP LAB URINE ORDERABLES Final Result [facility] [address] [place] [address] * (ABNORMAL) Respiratory Culture and Gram Stain (06/14/2025 8:18 AM EDT) Culture Heavy Growth 06/17/2025 11:03 AM EDT [facility] Culture Mixed upper respiratory kelsi(A) 06/17/2025 11:03 AM EDT [facility] Comment:The organism value f or this result has been updated. These results have been appended to the previously preliminary verified report. Gram Stain Result Fewer than 10 Epithelial cells/LPF(A) 06/17/2025 11:03 AM EDT [facility] Gram Stain Result Greater than 25 WBC/LPF(A) 06/17/2025 11:03 AM EDT [facility] Gram Stain Result Numerous Gram negative rods(A) 06/17/2025 11:03 AM EDT [facility] Gram Stain Result Numerous Gram positive cocci in pairs and chains(A) 06/17/2025 11:03 AM EDT [facility] Gram Stain Result Moderate Gram positive cocci in clusters(A) 06/17/2025 11:03 AM EDT [facility] Aspirate Specimen from endotracheal tube / Unknown Non-blood Collection / Unknown 06/14/2025 8:18 AM EDT 06/14/2025 10:27 AM EDT us Corry Doss APRN, DNP LAB MICROBIOLOGY - G ENERAL ORDERABLES Final Result [facility] [address] [place] [address] * XR Abdomen 1 View (06/14/2025 8:18 [...] Quentin Oliva MD on 06/14/2025 8:41 AM us Corry Doss APRN, DNP IMG XR PROCEDURES Fi nal Result * Blood Culture (Aerobic/Anaerobet Set) (06/14/2025 8:17 AM EDT) Culture No growth at day 5 KEELY 06/19/2025 10:01 AM EDT [facility] Blood Upper arm part / Unknown Venipuncture / Unknown 06/14/2025 8:17 AM EDT 06/14/2025 8:59 AM EDT Corry Doss APRN, DNP LAB MICROBIOLOGY - G ENERAL ORDERABLES Final Result Performing Organization Address City/[facility] Co de Phone Number [facility] [address] [place] [address] * (ABNORMAL) Procalcitonin, Plasma (06/14/2025 8:17 AM EDT) Procalcitonin, Plasma 1.99(H) <0.09 ng/mL 06/14/2025 9:20 AM EDT [facility] Blood Venous blood specimen / Unknown Venipuncture / Unknown 06/14/2025 8:17 AM EDT 06/14/2025 8:43 AM EDT Narrative [facility] - 06/14/2025 9:20 AM EDT [...] predict 28 day mortality risk. Please consult [email or web address] for more information. Test performed at [facility], Core Laboratory. Corry Doss APRN, DNP LAB BLOOD ORDERABLES Final Result Performing Organization Address [facility]/ZIP Co de Phone Number [facility] [address] [place] [address] * (ABNORMAL) Blood gas panel, arterial (06/14/2025 5:30 AM EDT) pH, Arterial 7.37 7.31 - 7.42 LAB HEMATOLOGY METHOD 06/14/2025 5:43 AM EDT [facility] pCO2, Arterial 43 32 - 45 mmHg LAB HEMATOLOGY METHOD 06/14/2025 5:43 AM EDT [facility] pO2, Arterial 58(LL) >70 mmHg LAB HEMATOLOGY METHOD 06/14/2025 5:43 AM EDT [facility] SO2, Measured, Arterial 88(L) 94 - 98 % LAB HEMATOLOGY METHOD 06/14/2025 5:43 AM EDT [facility] Base Excess, Arterial -0.4 -2.0 - 3.0 mmol/L LAB HEMATOLOGY METHOD 06/14/2025 5:43 AM EDT [facility] Bicarbonate, Calculated, Arterial 25 22 - 26 mmol/L LAB HEMATOLOGY METHOD 06/14/2025 5:43 AM EDT [facility] Hematocrit, Whole Blood 38.5(L) 40.0 - 51.0 % LAB HEMATOLOGY METHOD 06/14/2025 5:43 AM EDT [facility] Sodium, Whole Blood 138 136 - 145 mmol/L LAB HEMATOLOGY METHOD 06/14/2025 5:43 AM EDT [facility] Potassium, Whole Blood 4.1 3.6 - 4.9 mmol/L LAB HEMATOLOGY METHOD 06/14/2025 5:43 AM EDT [facility] Chloride, Whole Blood 106 97 - 107 mmol/L LAB HEMATOLOGY METHOD 06/14/2025 5:43 AM EDT [facility] Glucose, Whole Blood 141(H) 74 - 99 mg/dL LAB HEMATOLOGY METHOD 06/14/2025 5:43 AM EDT [facility] Ionized Calcium, Whole Blood 4.3(L) 4.6 - 5.1 mg/dL LAB HEMATOLOGY METHOD 06/14/2025 5:43 AM EDT [facility] Lactate, Arterial, Whole Blood 2.1(H) 0.5 - 1.6 mmol/L LAB HEMATOLOGY METHOD 06/14/2025 5:43 AM EDT [facility] Blood Arterial blood specimen / Unknown Arterial Puncture / Unknown 06/14/2025 5:30 AM EDT 06/14/2025 5:37 AM EDT us Roshan Haas ICE CREAM MACHINE OPERATOR, DNP LAB BLOOD ORDERABLES Fi nal Result [facility] [address] [place] [address] * ECG Adult (06/14/2025 4:26 AM EDT) EKG DIAGNOSIS CLASS Abnormal MUSE ECG Ventricular Rate 109 BPM MUSE ECG Atrial Rate 109 BPM MUSE ECG CO Interval 152 ms MUSE ECG QRSD Interval 86 ms MUSE ECG QT Interval 336 ms MUSE ECG QTC Interval 452 ms MUSE ECG P Hammond -6 degrees MUSE ECG R Hammond -1 degrees MUSE ECG T Wave Hammond 5 degrees MUSE ECG Diagnosis Sinus tachycardia MUSE ECG Diagnosis Poor R-wave progression and cannot rule out an anterior infarct. MUSE ECG Diagnosis Cannot rule out Inferior infarct , age undetermined MUSE ECG Diagnosis Nonspecific T wave abnormality MUSE ECG Diagnosis Abnormal ECG MUSE ECG Diagnosis MUSE ECG Diagnosis Confirmed by Evin Flynn ([id number]) on 06/14/2025 2:38:22 PM MUSE ECG 06/14/2025 4:26 AM EDT 06/14/2025 2:38 PM EDT us Raymond Katz ICE CREAM MACHINE OPERATOR ECG ORDERABLES Final Result Performing Organization Address City/[facility] Co de Phone Number MUSE ECG * XR Chest 1 View [...] Brian Thompson MD on 06/14/2025 4:30 AM Raymond Katz ICE CREAM MACHINE OPERATOR IMG XR PROCEDURES Final Resul t * (ABNORMAL) Blood gas panel, arterial (06/14/2025 3:35 AM EDT) pH, Arterial 7.37 7.31 - 7.42 LAB HEMATOLOGY METHOD 06/14/2025 3:43 AM EDT [facility] pCO2, Arterial 43 32 - 45 mmHg LAB HEMATOLOGY METHOD 06/14/2025 3:43 AM EDT [facility] pO2, Arterial 64(L) >70 mmHg LAB HEMATOLOGY METHOD 06/14/2025 3:43 AM EDT [facility] SO2, Measured, Arterial 91(L) 94 - 98 % LAB HEMATOLOGY METHOD 06/14/2025 3:43 AM EDT [facility] Base Excess, Arterial -0.6 -2.0 - 3.0 mmol/L LAB HEMATOLOGY METHOD 06/14/2025 3:43 AM EDT [facility] Bicarbonate, Calculated, Arterial 25 22 - 26 mmol/L LAB HEMATOLOGY METHOD 06/14/2025 3:43 AM EDT [facility] Hematocrit, Whole Blood 38.2(L) 40.0 - 51.0 % LAB HEMATOLOGY METHOD 06/14/2025 3:43 AM EDT [facility] Sodium, Whole Blood 139 136 - 145 mmol/L LAB HEMATOLOGY METHOD 06/14/2025 3:43 AM EDT [facility] Potassium, Whole Blood 4.1 3.6 - 4.9 mmol/L LAB HEMATOLOGY METHOD 06/14/2025 3:43 AM EDT [facility] Chloride, Whole Blood 106 97 - 107 mmol/L LAB HEMATOLOGY METHOD 06/14/2025 3:43 AM EDT [facility] Glucose, Whole Blood 140(H) 74 - 99 mg/dL LAB HEMATOLOGY METHOD 06/14/2025 3:43 AM EDT [facility] Ionized Calcium, Whole Blood 4.4(L) 4.6 - 5.1 mg/dL LAB HEMATOLOGY METHOD 06/14/2025 3:43 AM EDT [facility] Lactate, Arterial, Whole Blood 2.0(H) 0.5 - 1.6 mmol/L LAB HEMATOLOGY METHOD 06/14/2025 3:43 AM EDT [facility] Blood Arterial blood specimen / Unknown Arterial Puncture / Unknown 06/14/2025 3:35 AM EDT 06/14/2025 3:41 AM EDT us Raymond Katz APRN LAB BLOOD ORDERABLES Final Re sult Performing Organization Address City/[facility]/ZIP Co de Phone Number [facility] [address] [place] [address] * N-Terminal Probnp (06/14/2025 12:41 AM EDT) N-Terminal, PROBNP, Plasma 109 0 - 899 pg/mL 06/14/2025 4:32 AM EDT [facility] Blood Arterial blood specimen / Unknown Venipuncture / Unknown 06/14/2025 12:41 AM EDT 06/14/2025 12:47 AM EDT us Mando Michelle APRN LAB BLOOD ORDERABLES Final Result Performing Organization Address City/[facility]/ZIP Co de Phone Number [facility] [address] [place] [address] * (ABNORMAL) Blood gas panel, arterial (06/14/2025 12:41 AM EDT) pH, Arterial 7.36 7.31 - 7.42 LAB HEMATOLOGY METHOD 06/14/2025 12:48 AM EDT [facility] pCO2, Arterial 44 32 - 45 mmHg LAB HEMATOLOGY METHOD 06/14/2025 12:48 AM EDT [facility] pO2, Arterial 84 >70 mmHg LAB HEMATOLOGY METHOD 06/14/2025 12:48 AM EDT [facility] SO2, Measured, Arterial 97 94 - 98 % LAB HEMATOLOGY METHOD 06/14/2025 12:48 AM EDT [facility] Base Excess, Arterial -0.8 -2.0 - 3.0 mmol/L LAB HEMATOLOGY METHOD 06/14/2025 12:48 AM EDT [facility] Bicarbonate, Calculated, Arterial 25 22 - 26 mmol/L LAB HEMATOLOGY METHOD 06/14/2025 12:48 AM EDT [facility] Hematocrit, Whole Blood 38.2(L) 40.0 - 51.0 % LAB HEMATOLOGY METHOD 06/14/2025 12:48 AM EDT [facility] Sodium, Whole Blood 140 136 - 145 mmol/L LAB HEMATOLOGY METHOD 06/14/2025 12:48 AM EDT [facility] Potassium, Whole Blood 4.2 3.6 - 4.9 mmol/L LAB HEMATOLOGY METHOD 06/14/2025 12:48 AM EDT [facility] Chloride, Whole Blood 106 97 - 107 mmol/L LAB HEMATOLOGY METHOD 06/14/2025 12:48 AM EDT [facility] Glucose, Whole Blood 143(H) 74 - 99 mg/dL LAB HEMATOLOGY METHOD 06/14/2025 12:48 AM EDT [facility] Ionized Calcium, Whole Blood 4.4(L) 4.6 - 5.1 mg/dL LAB HEMATOLOGY METHOD 06/14/2025 12:48 AM EDT [facility] Lactate, Arterial, Whole Blood 2.1(H) 0.5 - 1.6 mmol/L LAB HEMATOLOGY METHOD 06/14/2025 12:48 AM EDT [facility] Blood Arterial blood specimen / Unknown Arterial Puncture / Unknown 06/14/2025 12:41 AM EDT 06/14/2025 12:47 AM EDT Roshan Haas ICE CREAM MACHINE OPERATOR, DNP LAB BLOOD ORDERABLES Fi nal Result Performing Organization Address [facility] Co de Phone Number [facility] [address] [place] [address] * (ABNORMAL) Phosphorus (06/14/2025 12:41 AM EDT) Phosphorus, Plasma 6.6(H) 2.5 - 4.5 mg/dL 06/14/2025 1:18 AM EDT [facility] Blood Arterial blood specimen / Unknown Venipuncture / Unknown 06/14/2025 12:41 AM EDT 06/14/2025 12:47 AM EDT Dyllan Paul MD LAB BLOOD ORDERABLES Final Re sult Performing Organization Address [facility] Co de Phone Number [facility] [address] [place] [address] * Magnesium (06/14/2025 12:41 AM EDT) Magnesium, Plasma 2.4 1.9 - 2.4 mg/dL 06/14/2025 1:18 AM EDT [facility] Blood Arterial blood specimen / Unknown Venipuncture / Unknown 06/14/2025 12:41 AM EDT 06/14/2025 12:47 AM EDT Dyllan Paul MD LAB BLOOD ORDERABLES Final Re sult Performing Organization Address [facility] Co de Phone Number [facility] [address] [place] [address] * (ABNORMAL) Basic metabolic panel (06/14/2025 12:41 AM EDT) Glucose, Plasma 144(H) 74 - 99 mg/dL 06/14/2025 1:18 AM EDT [facility] BUN, Plasma 41(H) 8 - 23 mg/dL 06/14/2025 1:18 AM EDT [facility] Creatinine, Plasma 2.36(H) 0.70 - 1.20 mg/dL 06/14/2025 1:18 AM EDT [facility] BUN/Creatinine Ratio 17 06/14/2025 1:18 AM EDT [facility] Sodium, Plasma 141 136 - 145 mmol/L 06/14/2025 1:18 AM EDT [facility] Potassium, Plasma 4.8 3.6 - 4.9 mmol/L 06/14/2025 1:18 AM EDT [facility] Chloride, Plasma 107 97 - 107 mmol/L 06/14/2025 1:18 AM EDT [facility] CO2, Plasma 23 22 - 29 mmol/L 06/14/2025 1:18 AM EDT [facility] Anion Gap 11 6 - 16 mmol/L 06/14/2025 1:18 AM EDT [facility] Total Calcium, Plasma 7.9(L) 8.9 - 10.2 mg/dL 06/14/2025 1:18 AM EDT [facility] eGFRcr 28.9 mL/min/1.7 3m*2 06/14/2025 1:18 AM EDT [facility] Comment:Reported eGFRcr in m L/min/1.73m2 is based the CKD-EPI 2020 equation that does not use a race coefficient. Blood Arterial blood specimen / Unknown Venipuncture / Unknown 06/14/2025 12:41 AM EDT 06/14/2025 12:47 AM EDT Dyllan Paul MD LAB BLOOD ORDERABLES Final Re sult [facility] [address] [place] [address] * (ABNORMAL) Hemogram (CBC) (06/14/2025 12:41 AM EDT) WBC Count 21.40(H) 3.70 - 10.30 10*3/uL LAB HEMATOLOGY METHOD 06/14/2025 12:56 AM EDT [facility] RBC Count 3.84(L) 4.60 - 6.10 10*6/uL LAB HEMATOLOGY METHOD 06/14/2025 12:56 AM EDT [facility] HGB 12.4(L) 13.7 - 17.5 g/dL LAB HEMATOLOGY METHOD 06/14/2025 12:56 AM EDT [facility] HCT 36.0(L) 40.0 - 51.0 % LAB HEMATOLOGY METHOD 06/14/2025 12:56 AM EDT [facility] Platelet Count 86(L) 155 - 369 10*3/uL LAB HEMATOLOGY METHOD 06/14/2025 12:56 AM EDT [facility] MCV 94 79 - 98 fL LAB HEMATOLOGY METHOD 06/14/2025 12:56 AM EDT [facility] MCH 32.3(H) 26.0 - 32.0 pg LAB HEMATOLOGY METHOD 06/14/2025 12:56 AM EDT [facility] MCHC 34.4 30.7 - 35.5 g/dL LAB HEMATOLOGY METHOD 06/14/2025 12:56 AM EDT [facility] RDW 16.1(H) 11.5 - 14.5 % LAB HEMATOLOGY METHOD 06/14/2025 12:56 AM EDT [facility] MPV 12.9(H) 8.8 - 12.5 fL LAB HEMATOLOGY METHOD 06/14/2025 12:56 AM EDT [facility] nRBC 0.0 <=0.0 per 100 WBCs LAB HEMATOLOGY METHOD 06/14/2025 12:56 AM EDT [facility] Blood Arterial blood specimen / Unknown Venipuncture / Unknown 06/14/2025 12:41 AM EDT 06/14/2025 12:47 AM EDT us Dyllan Paul MD LAB BLOOD ORDERABLES Final Re sult [facility] [address] [place] [address] * (ABNORMAL) Blood gas panel, arterial (06/13/2025 5:13 PM EDT) pH, Arterial 7.34 7.31 - 7.42 LAB HEMATOLOGY METHOD 06/13/2025 5:20 PM EDT [facility] pCO2, Arterial 47(H) 32 - 45 mmHg LAB HEMATOLOGY METHOD 06/13/2025 5:20 PM EDT [facility] pO2, Arterial 72 >70 mmHg LAB HEMATOLOGY METHOD 06/13/2025 5:20 PM EDT [facility] SO2, Measured, Arterial 94 94 - 98 % LAB HEMATOLOGY METHOD 06/13/2025 5:20 PM EDT [facility] Base Excess, Arterial -1.1 -2.0 - 3.0 mmol/L LAB HEMATOLOGY METHOD 06/13/2025 5:20 PM EDT [facility] Bicarbonate, Calculated, Arterial 25 22 - 26 mmol/L LAB HEMATOLOGY METHOD 06/13/2025 5:20 PM EDT [facility] Hematocrit, Whole Blood 38.3(L) 40.0 - 51.0 % LAB HEMATOLOGY METHOD 06/13/2025 5:20 PM EDT [facility] Sodium, Whole Blood 139 136 - 145 mmol/L LAB HEMATOLOGY METHOD 06/13/2025 5:20 PM EDT [facility] Potassium, Whole Blood 4.0 3.6 - 4.9 mmol/L LAB HEMATOLOGY METHOD 06/13/2025 5:20 PM EDT [facility] Chloride, Whole Blood 107 97 - 107 mmol/L LAB HEMATOLOGY METHOD 06/13/2025 5:20 PM EDT [facility] Glucose, Whole Blood 143(H) 74 - 99 mg/dL LAB HEMATOLOGY METHOD 06/13/2025 5:20 PM EDT [facility] Ionized Calcium, Whole Blood 4.4(L) 4.6 - 5.1 mg/dL LAB HEMATOLOGY METHOD 06/13/2025 5:20 PM EDT [facility] Lactate, Arterial, Whole Blood 2.0(H) 0.5 - 1.6 mmol/L LAB HEMATOLOGY METHOD 06/13/2025 5:20 PM EDT [facility] Blood Arterial blood specimen / Unknown Arterial Puncture / Unknown 06/13/2025 5:13 PM EDT 06/13/2025 5:19 PM EDT us Roshan Haas ICE CREAM MACHINE OPERATOR, DNP LAB BLOOD ORDERABLES Fi nal Result [facility] [address] [place] [address] * Ionized calcium, whole blood (06/13/2025 3:35 PM EDT) Ionized Calcium, Whole Blood 4.6 4.6 - 5.1 mg/dL LAB HEMATOLOGY METHOD 06/13/2025 4:00 PM EDT [facility] Blood Venous blood specimen / Unknown Venipuncture / Unknown 06/13/2025 3:35 PM EDT 06/13/2025 3:57 PM EDT Roshan Haas APRN, [place] LAB BLOOD ORDERABLES Fi nal Result [facility] [address] [place] [address] * Magnesium, Plasma (06/13/2025 3:35 PM EDT) Magnesium, Plasma 2.3 1.9 - 2.4 mg/dL 06/13/2025 4:23 PM EDT [facility] Blood Venous blood specimen / Unknown Venipuncture / Unknown 06/13/2025 3:35 PM EDT 06/13/2025 3:51 PM EDT Roshan Haas APRN, [place] LAB BLOOD ORDERABLES Fi nal Result [facility] [address] [place] [address] * (ABNORMAL) Renal function panel (06/13/2025 3:35 PM EDT) Glucose, Plasma 148(H) 74 - 99 mg/dL 06/13/2025 4:23 PM EDT [facility] BUN, Plasma 31(H) 8 - 23 mg/dL 06/13/2025 4:23 PM EDT [facility] Creatinine, Plasma 2.02(H) 0.70 - 1.20 mg/dL 06/13/2025 4:23 PM EDT [facility] BUN/Creatinine Ratio 15 06/13/2025 4:23 PM EDT [facility] Sodium, Plasma 143 136 - 145 mmol/L 06/13/2025 4:23 PM EDT [facility] Potassium, Plasma 4.7 3.6 - 4.9 mmol/L 06/13/2025 4:23 PM EDT [facility] Chloride, Plasma 108(H) 97 - 107 mmol/L 06/13/2025 4:23 PM EDT [facility] CO2, Plasma 22 22 - 29 mmol/L 06/13/2025 4:23 PM EDT [facility] Anion Gap 13 6 - 16 mmol/L 06/13/2025 4:23 PM EDT [facility] Total Calcium, Plasma 8.2(L) 8.9 - 10.2 mg/dL 06/13/2025 4:23 PM EDT [facility] Phosphorus, Plasma 7.4(H) 2.5 - 4.5 mg/dL 06/13/2025 4:23 PM EDT [facility] Albumin, Plasma 2.6(L) 3.5 - 5.2 g/dL 06/13/2025 4:23 PM EDT [facility] eGFRcr 34.8 mL/min/1.7 3m*2 06/13/2025 4:23 PM EDT [facility] Comment:Reported eGFRcr in m L/min/1.73m2 is based the CKD-EPI 2020 equation that does not use a race coefficient. Blood Venous blood specimen / Unknown Venipuncture / Unknown 06/13/2025 3:35 PM EDT 06/13/2025 3:51 PM EDT us Roshan Haas ICE CREAM MACHINE OPERATOR, DNP LAB BLOOD ORDERABLES Fi nal Result [facility] [address] [place] [address] * (ABNORMAL) Hemoglobin and hematocrit, blood (06/13/2025 11:57 AM EDT) HGB 12.8(L) 13.7 - 17.5 g/dL LAB HEMATOLOGY METHOD 06/13/2025 12:26 PM EDT [facility] HCT 37.2(L) 40.0 - 51.0 % LAB HEMATOLOGY METHOD 06/13/2025 12:26 PM EDT [facility] Blood Arterial blood specimen / Unknown Arterial Line / Unknown 06/13/2025 11:57 AM EDT 06/13/2025 12:17 PM EDT us Roshan Haas ICE CREAM MACHINE OPERATOR, DNP LAB BLOOD ORDERABLES Fi nal Result [facility] [address] [place] [address] * (ABNORMAL) Blood gas panel, arterial (06/13/2025 11:30 AM EDT) pH, Arterial 7.34 7.31 - 7.42 LAB HEMATOLOGY METHOD 06/13/2025 11:37 AM EDT [facility] pCO2, Arterial 45 32 - 45 mmHg LAB HEMATOLOGY METHOD 06/13/2025 11:37 AM EDT [facility] pO2, Arterial 82 >70 mmHg LAB HEMATOLOGY METHOD 06/13/2025 11:37 AM EDT [facility] SO2, Measured, Arterial 96 94 - 98 % LAB HEMATOLOGY METHOD 06/13/2025 11:37 AM EDT [facility] Base Excess, Arterial -1.7 -2.0 - 3.0 mmol/L LAB HEMATOLOGY METHOD 06/13/2025 11:37 AM EDT [facility] Bicarbonate, Calculated, Arterial 24 22 - 26 mmol/L LAB HEMATOLOGY METHOD 06/13/2025 11:37 AM EDT [facility] Hematocrit, Whole Blood 39.0(L) 40.0 - 51.0 % LAB HEMATOLOGY METHOD 06/13/2025 11:37 AM EDT [facility] Sodium, Whole Blood 140 136 - 145 mmol/L LAB HEMATOLOGY METHOD 06/13/2025 11:37 AM EDT [facility] Potassium, Whole Blood 3.9 3.6 - 4.9 mmol/L LAB HEMATOLOGY METHOD 06/13/2025 11:37 AM EDT [facility] Chloride, Whole Blood 108(H) 97 - 107 mmol/L LAB HEMATOLOGY METHOD 06/13/2025 11:37 AM EDT [facility] Glucose, Whole Blood 145(H) 74 - 99 mg/dL LAB HEMATOLOGY METHOD 06/13/2025 11:37 AM EDT [facility] Ionized Calcium, Whole Blood 4.5(L) 4.6 - 5.1 mg/dL LAB HEMATOLOGY METHOD 06/13/2025 11:37 AM EDT [facility] Lactate, Arterial, Whole Blood 2.3(H) 0.5 - 1.6 mmol/L LAB HEMATOLOGY METHOD 06/13/2025 11:37 AM EDT [facility] Blood Arterial blood specimen / Unknown Arterial Puncture / Unknown 06/13/2025 11:30 AM EDT 06/13/2025 11:36 AM EDT us Roshan Haas APRN, DNP LAB BLOOD ORDERABLES Fi nal Result [facility] [address] [place] [address] * CO CRITICAL CARE, ADDL 30 MIN (06/13/2025 10:48 [...] LAB HEMATOLOGY METHOD 06/13/2025 5:10 AM EDT [facility] pCO2, Arterial 46(H) 32 - 45 mmHg LAB HEMATOLOGY METHOD 06/13/2025 5:10 AM EDT [facility] pO2, Arterial 85 >70 mmHg LAB HEMATOLOGY METHOD 06/13/2025 5:10 AM EDT [facility] SO2, Measured, Arterial 97 94 - 98 % LAB HEMATOLOGY METHOD 06/13/2025 5:10 AM EDT [facility] Base Excess, Arterial -0.8 -2.0 - 3.0 mmol/L LAB HEMATOLOGY METHOD 06/13/2025 5:10 AM EDT [facility] Bicarbonate, Calculated, Arterial 25 22 - 26 mmol/L LAB HEMATOLOGY METHOD 06/13/2025 5:10 AM EDT [facility] Hematocrit, Whole Blood 38.7(L) 40.0 - 51.0 % LAB HEMATOLOGY METHOD 06/13/2025 5:10 AM EDT [facility] Sodium, Whole Blood 141 136 - 145 mmol/L LAB HEMATOLOGY METHOD 06/13/2025 5:10 AM EDT [facility] Potassium, Whole Blood 3.6 3.6 - 4.9 mmol/L LAB HEMATOLOGY METHOD 06/13/2025 5:10 AM EDT [facility] Chloride, Whole Blood 109(H) 97 - 107 mmol/L LAB HEMATOLOGY METHOD 06/13/2025 5:10 AM EDT [facility] Glucose, Whole Blood 137(H) 74 - 99 mg/dL LAB HEMATOLOGY METHOD 06/13/2025 5:10 AM EDT [facility] Ionized Calcium, Whole Blood 4.4(L) 4.6 - 5.1 mg/dL LAB HEMATOLOGY METHOD 06/13/2025 5:10 AM EDT [facility] Lactate, Arterial, Whole Blood 2.5(H) 0.5 - 1.6 mmol/L LAB HEMATOLOGY METHOD 06/13/2025 5:10 AM EDT [facility] Blood Arterial blood specimen / Unknown Arterial Line / Unknown 06/13/2025 4:53 AM EDT 06/13/2025 5:08 AM EDT Jones Mckeon [employer] LAB BLOOD ORDERABLES Francia l Result Performing Organization Address [facility] Co de Phone Number [facility] [address] [place] [address] * (ABNORMAL) Ionized calcium, whole blood (06/13/2025 4:53 AM EDT) Ionized Calcium, Whole Blood 4.4(L) 4.6 - 5.1 mg/dL LAB HEMATOLOGY METHOD 06/13/2025 5:13 AM EDT [facility] Blood Arterial blood specimen / Unknown Arterial Line / Unknown 06/13/2025 4:53 AM EDT 06/13/2025 5:10 AM EDT Raymond Katz ICE CREAM MACHINE OPERATOR LAB BLOOD ORDERABLES Final Re sult Performing Organization Address [facility] Co de Phone Number [facility] [address] [place] [address] * PERIPHERAL IV (SMARTFORM LINK) (06/13/2025 4:14 [...] All pertinent images were uploaded to PACS. Dyllan Paul MD IV THERAPY ORDERABLES Final R esult * (ABNORMAL) CBC W/O Differential (06/13/2025 12:26 AM EDT) [facility] Signature WBC Count 16.15(H) 3.70 - 10.30 10*3/uL LAB HEMATOLOGY METHOD 06/13/2025 12:43 AM EDT [facility] RBC Count 4.03(L) 4.60 - 6.10 10*6/uL LAB HEMATOLOGY METHOD 06/13/2025 12:43 AM EDT [facility] HGB 13.1(L) 13.7 - 17.5 g/dL LAB HEMATOLOGY METHOD 06/13/2025 12:43 AM EDT [facility] HCT 37.1(L) 40.0 - 51.0 % LAB HEMATOLOGY METHOD 06/13/2025 12:43 AM EDT [facility] Platelet Count 77(L) 155 - 369 10*3/uL LAB HEMATOLOGY METHOD 06/13/2025 12:43 AM EDT [facility] MCV 92 79 - 98 fL LAB HEMATOLOGY METHOD 06/13/2025 12:43 AM EDT [facility] MCH 32.5(H) 26.0 - 32.0 pg LAB HEMATOLOGY METHOD 06/13/2025 12:43 AM EDT [facility] MCHC 35.3 30.7 - 35.5 g/dL LAB HEMATOLOGY METHOD 06/13/2025 12:43 AM EDT [facility] RDW 16.1(H) 11.5 - 14.5 % LAB HEMATOLOGY METHOD 06/13/2025 12:43 AM EDT [facility] MPV 12.8(H) 8.8 - 12.5 fL LAB HEMATOLOGY METHOD 06/13/2025 12:43 AM EDT [facility] nRBC 0.6(H) <=0.0 per 100 WBCs LAB HEMATOLOGY METHOD 06/13/2025 12:43 AM EDT [facility] Blood Arterial blood specimen / Unknown Arterial Line / Unknown 06/13/2025 12:26 AM EDT 06/13/2025 12:31 AM EDT us Raymond Katz ICE CREAM MACHINE OPERATOR LAB BLOOD ORDERABLES Final Re sult [facility] [address] [place] [address] * Richar auris Surveillance by PCR (06/12/2025 10:48 PM EDT) Richar auris PCR Result Not Detected Not Detected 06/13/2025 11:46 AM EDT [facility] Swab (Axilla and Groin) Non-blood Collection / Unknown 06/12/2025 10:48 PM EDT 06/12/2025 11:08 PM EDT Narrative [facility] - 06/13/2025 11:46 AM EDT This PCR assay was developed and its performance characteristics determined by [facility] as appropriate for clinical purposes. This assay has not been cleared or approved by the FDA, but is performed in a CLIA regulated laboratory that is qualified to perform high-complexity testing. Dyllan Paul MD LAB MICROBIOLOGY - GENERAL OR DERABLES Final Result Performing Organization Address [facility] [place] [address] * Multi Drug Resistance Test (06/12/2025 10:48 PM EDT) Pathologist [facility] Culture No growth at day 1 06/14/2025 12:06 AM EDT [facility] Swab (Nares and Cari Rectal) Non-blood Collection / Unknown 06/12/2025 10:48 PM EDT 06/12/2025 11:08 PM EDT Narrative [facility] - 06/14/2025 12:06 AM EDT This test was developed and its performance characteristics determined by the [facility]. Although the media is FDA-approved, it is not FDA-approved for all specimen types submitted. The FDA has determined that such clearance or approval is not necessary. This test is used for surveillance purposes. It should not be regarded as investigational or for research. The [facility] Laboratory is certified under the Clinical Laboratory Improvement Amendments of 1988 (CLIA-88) as qualified to perform high complexity clinical laboratory testing. us Dyllan Paul MD LAB MICROBIOLOGY - GENERAL OR DERABLES Final Result [facility] [address] [place] [address] * (ABNORMAL) Blood gas panel, arterial (06/12/2025 10:47 PM EDT) pH, Arterial 7.35 7.31 - 7.42 LAB HEMATOLOGY METHOD 06/12/2025 10:53 PM EDT [facility] pCO2, Arterial 45 32 - 45 mmHg LAB HEMATOLOGY METHOD 06/12/2025 10:53 PM EDT [facility] pO2, Arterial 163 >70 mmHg LAB HEMATOLOGY METHOD 06/12/2025 10:53 PM EDT [facility] SO2, Measured, Arterial 100(H) 94 - 98 % LAB HEMATOLOGY METHOD 06/12/2025 10:53 PM EDT [facility] Base Excess, Arterial -0.9 -2.0 - 3.0 mmol/L LAB HEMATOLOGY METHOD 06/12/2025 10:53 PM EDT [facility] Bicarbonate, Calculated, Arterial 25 22 - 26 mmol/L LAB HEMATOLOGY METHOD 06/12/2025 10:53 PM EDT [facility] Hematocrit, Whole Blood 39.8(L) 40.0 - 51.0 % LAB HEMATOLOGY METHOD 06/12/2025 10:53 PM EDT [facility] Sodium, Whole Blood 143 136 - 145 mmol/L LAB HEMATOLOGY METHOD 06/12/2025 10:53 PM EDT [facility] Potassium, Whole Blood 3.6 3.6 - 4.9 mmol/L LAB HEMATOLOGY METHOD 06/12/2025 10:53 PM EDT [facility] Chloride, Whole Blood 110(H) 97 - 107 mmol/L LAB HEMATOLOGY METHOD 06/12/2025 10:53 PM EDT [facility] Glucose, Whole Blood 142(H) 74 - 99 mg/dL LAB HEMATOLOGY METHOD 06/12/2025 10:53 PM EDT [facility] Ionized Calcium, Whole Blood 4.6 4.6 - 5.1 mg/dL LAB HEMATOLOGY METHOD 06/12/2025 10:53 PM EDT [facility] Lactate, Arterial, Whole Blood 2.3(H) 0.5 - 1.6 mmol/L LAB HEMATOLOGY METHOD 06/12/2025 10:53 PM EDT [facility] Blood Arterial blood specimen / Unknown Arterial Puncture / Unknown 06/12/2025 10:47 PM EDT 06/12/2025 10:52 PM EDT us Raymond Katz APRN LAB BLOOD ORDERABLES Final Re sult [facility] [address] [place] [address] * CO CRITICAL CARE, ADDL 30 MIN, CO CRITICAL CARE, ADDL 30 MIN, CO CRITICAL CARE, ADDL 30 MIN (06/12/2025 10:22 [...] my division, on the same day: yes us Raymond Katz APRN IN CLINIC/BEDSIDE ORDERABLES Final Result * (ABNORMAL) POCT glucose meter (06/12/2025 10:19 PM EDT) POCT Glucose 141(H) 74 - 99 mg/dL 06/12/2025 10:21 PM EDT [facility] Comment:Accuracy of a glucos e result [...] for testing. Comment 06/12/2025 10:21 PM EDT [facility] Aeronautical Engineering Technologist ID Nikolay Mccall 06/12/2025 10:21 PM EDT [facility] Device ID [id number] 06/12/2025 10:21 PM EDT [facility] Specimen Type POC Capillary 06/12/2025 10:21 PM EDT [facility] Blood Capillary blood specimen / Unknown 06/12/2025 10:19 PM EDT 06/12/2025 10:21 PM EDT us Dyllan Paul MD LAB POINT OF CARE TE ST DOCKED DEVICE UNSOLICITED RESULTS Final Result Performing Organization Address City/State/[facility] Co de Phone Number [facility] [address] [place] [address] * XR Chest 1 View (06/12/2025 9:54 [...] Irena Osborne MD on 06/12/2025 10:00 PM us Raymond Katz ICE CREAM MACHINE OPERATOR IMG XR PROCEDURES Final Resul t * (ABNORMAL) APTT (06/12/2025 9:27 PM EDT) aPTT 37(H) 25 - 35 sec LAB COAGULATION METHOD 06/12/2025 10:04 PM EDT [facility] Blood Arterial blood specimen / Unknown Arterial Line / Unknown 06/12/2025 9:27 PM EDT 06/12/2025 9:42 PM EDT us Dyllan Paul MD LAB BLOOD ORDERABLES Final Re sult [facility] [address] [place] [address] * (ABNORMAL) Protime-INR (06/12/2025 9:27 PM EDT) Prothrombin Time 20.7(H) 12.0 - 14.3 sec LAB COAGULATION METHOD 06/12/2025 10:04 PM EDT [facility] INR 1.8(H) 0.9 - 1.1 LAB COAGULATION METHOD 06/12/2025 10:04 PM EDT [facility] Blood Arterial blood specimen / Unknown Arterial Line / Unknown 06/12/2025 9:27 PM EDT 06/12/2025 9:42 PM EDT Narrative [facility] - 06/12/2025 10:04 PM EDT OPTIMAL INR RANGES FOR PATIENT ON ORAL ANTICOAGULANT THERAPY Prevention of venous thromboembolism INR 2.0 to 3.0 In patients with heart disease: Atrial fibrillation INR 2.0 to 3.0 Valvular heart disease INR 2.0 to 3.0 Tissue heart valves INR 2.0 to 3.0 Mechanical prosthetic valves INR 2.5 to 3.5 Prevention of recurrent MT INR 2.5 to 3.5 Dyllan Paul MD LAB BLOOD ORDERABLES Final Re sult Performing Organization Address [facility]/ZIP Co de Phone Number [facility] [address] [place] [address] * (ABNORMAL) Phosphorus (06/12/2025 9:27 PM EDT) Phosphorus, Plasma 5.1(H) 2.5 - 4.5 mg/dL 06/12/2025 10:12 PM EDT [facility] Blood Arterial blood specimen / Unknown Arterial Line / Unknown 06/12/2025 9:27 PM EDT 06/12/2025 9:42 PM EDT Dyllan Paul MD LAB BLOOD ORDERABLES Final Re sult Performing Organization Address [facility]/ZIP Co de Phone Number [facility] [address] [place] [address] * (ABNORMAL) Magnesium (06/12/2025 9:27 PM EDT) Magnesium, Plasma 1.5(L) 1.9 - 2.4 mg/dL 06/12/2025 10:12 PM EDT [facility] Blood Arterial blood specimen / Unknown Arterial Line / Unknown 06/12/2025 9:27 PM EDT 06/12/2025 9:42 PM EDT Dyllan Paul MD LAB BLOOD ORDERABLES Final Re sult Performing Organization Address City/[facility]/ZIP Co de Phone Number [facility] [address] [place] [address] * (ABNORMAL) Comprehensive metabolic panel (06/12/2025 9:27 PM EDT) Glucose, Plasma 148(H) 74 - 99 mg/dL 06/12/2025 10:12 PM EDT [facility] BUN, Plasma 17 8 - 23 mg/dL 06/12/2025 10:12 PM EDT [facility] Creatinine, Plasma 1.06 0.70 - 1.20 mg/dL 06/12/2025 10:12 PM EDT [facility] BUN/Creatinine Ratio 16 06/12/2025 10:12 PM EDT [facility] Sodium, Plasma 143 136 - 145 mmol/L 06/12/2025 10:12 PM EDT [facility] Potassium, Plasma 4.1 3.6 - 4.9 mmol/L 06/12/2025 10:12 PM EDT [facility] Chloride, Plasma 109(H) 97 - 107 mmol/L 06/12/2025 10:12 PM EDT [facility] CO2, Plasma 22 22 - 29 mmol/L 06/12/2025 10:12 PM EDT [facility] Anion Gap 12 6 - 16 mmol/L 06/12/2025 10:12 PM EDT [facility] Total Calcium, Plasma 8.5(L) 8.9 - 10.2 mg/dL 06/12/2025 10:12 PM EDT [facility] Total Protein 4.2(L) 6.3 - 7.9 g/dL 06/12/2025 10:12 PM EDT [facility] Albumin, Plasma 2.6(L) 3.5 - 5.2 g/dL 06/12/2025 10:12 PM EDT [facility] AST, Plasma 71(H) 10 - 50 U/L 06/12/2025 10:12 PM EDT [facility] Comment:Hemolyzed, result ma y be falsely increased. ALT, Plasma 39 10 - 50 U/L 06/12/2025 10:12 PM EDT [facility] Alkaline Phosphatase, Plasma 109 40 - 115 U/L 06/12/2025 10:12 PM EDT [facility] Total Bilirubin, Plasma 2.8(H) 0.2 - 1.1 mg/dL 06/12/2025 10:12 PM EDT [facility] eGFRcr 75.5 mL/min/1.7 3m*2 06/12/2025 10:12 PM EDT [facility] Comment:Reported eGFRcr in m L/min/1.73m2 is based the CKD-EPI 2020 equation that does not use a race coefficient. Blood Arterial blood specimen / Unknown Arterial Line / Unknown 06/12/2025 9:27 PM EDT 06/12/2025 9:42 PM EDT us Dyllan Paul MD LAB BLOOD ORDERABLES Final Re sult [facility] [address] [place] [address] * (ABNORMAL) CBC W/O Differential (06/12/2025 9:27 PM EDT) WBC Count 11.67(H) 3.70 - 10.30 10*3/uL LAB HEMATOLOGY METHOD 06/12/2025 10:23 PM EDT [facility] RBC Count 3.91(L) 4.60 - 6.10 10*6/uL LAB HEMATOLOGY METHOD 06/12/2025 10:23 PM EDT [facility] HGB 12.5(L) 13.7 - 17.5 g/dL LAB HEMATOLOGY METHOD 06/12/2025 10:23 PM EDT [facility] HCT 36.2(L) 40.0 - 51.0 % LAB HEMATOLOGY METHOD 06/12/2025 10:23 PM EDT [facility] Platelet Count 70(L) 155 - 369 10*3/uL LAB HEMATOLOGY METHOD 06/12/2025 10:23 PM EDT [facility] MCV 93 79 - 98 fL LAB HEMATOLOGY METHOD 06/12/2025 10:23 PM EDT [facility] MCH 32.0 26.0 - 32.0 pg LAB HEMATOLOGY METHOD 06/12/2025 10:23 PM EDT [facility] MCHC 34.5 30.7 - 35.5 g/dL LAB HEMATOLOGY METHOD 06/12/2025 10:23 PM EDT [facility] RDW 16.0(H) 11.5 - 14.5 % LAB HEMATOLOGY METHOD 06/12/2025 10:23 PM EDT [facility] MPV 12.8(H) 8.8 - 12.5 fL LAB HEMATOLOGY METHOD 06/12/2025 10:23 PM EDT [facility] nRBC 0.4(H) <=0.0 per 100 WBCs LAB HEMATOLOGY METHOD 06/12/2025 10:23 PM EDT [facility] Blood Arterial blood specimen / Unknown Arterial Line / Unknown 06/12/2025 9:27 PM EDT 06/12/2025 9:43 PM EDT us Dyllan Paul MD LAB BLOOD ORDERABLES Final Re sult [facility] [address] [place] [address] * (ABNORMAL) POCT arterial blood gas gem (06/12/2025 9:19 PM EDT) pH, Arterial 7.34 7.31 - 7.42 06/12/2025 9:[address] [facility] pCO2, Arterial 44 32 - 45 mm Hg 06/12/2025 9:[address] [facility] pO2, Arterial 81 >70 mm Hg 06/12/2025 9:[address] [facility] SO2, Arterial 98 94 - 98 % 06/12/2025 9:[address] [facility] Base Excess, Arterial -2.2(L) -2 - 3 mmol/L 06/12/2025 9:[address] [facility] HCO3, Arterial 23.7 22 - 26 mmol/L 06/12/2025 9:[address] [facility] Total Hemoglobin, Arterial, Whole Blood 12.2(L) 13.7 - 17.5 g/dL 06/12/2025 9:[address] [facility] Hematocrit, Arterial 37.0(L) 40 - 51.0 % 06/12/2025 9:[address] [facility] Sodium, Arterial 141 136 - 145 mmol/L 06/12/2025 9:[address] [facility] Potassium, Arterial 3.4(L) 3.6 - 4.9 mmol/L 06/12/2025 9:[address] [facility] Chloride, Whole Blood 112(H) 97 - 107 mmol/L 06/12/2025 9:[address] [facility] Glucose, Arterial 129(H) 74 - 99 mg/dL 06/12/2025 9:[address] [facility] Ionized Calcium, Arterial 4.5(L) 4.6 - 5.1 mg/dL 06/12/2025 9:[address] [facility] Lactate, Arterial 2.4(H) 0.5 - 1.6 mmol/L 06/12/2025 9:[address] [facility] Body Temperature 37.0 Celsius 06/12/2025 9:[address] [facility] pH, Temp Corrected, Arterial 7.34 7.31 - 7.42 06/12/2025 9:[address] [facility] pCO2, Temp Corrected, Arterial 44 32 - 45 mm Hg 06/12/2025 9:[address] [facility] pO2, Temp Corrected, Arterial 81 >70 mm Hg 06/12/2025 9:[address] [facility] Aeronautical Engineering Technologist ID Dyllan Wong 06/12/2025 9:[address] [facility] Blood, Arterial Whole blood specimen / Unknown 06/12/2025 9:19 PM EDT 06/12/2025 9:20 PM EDT Dyllan Paul MD LAB POINT OF CARE TE ST DOCKED DEVICE UNSOLICITED RESULTS Final Result [facility] [address] [place] [address] * (ABNORMAL) POCT venous blood gas gem (06/12/2025 7:35 PM EDT) pH, Venous 7.29(L) 7.32 - 7.43 06/12/2025 7:[address] [facility] pCO2, Venous 56(H) 40 - 55 mm Hg 06/12/2025 7:[address] [facility] pO2, Venous 55(H) 25 - 40 mm Hg 06/12/2025 7:[address] [facility] SO2, Venous 83(H) 65 - 80 % 06/12/2025 7:[address] [facility] Base Excess/Deficit, Venous -0.5 -2 - 3 mmol/L 06/12/2025 7:[address] [facility] HCO3, Venous 26.9(H) 22 - 26 mmol/L 06/12/2025 7:[address] [facility] Hemoglobin, Venous 11.9(L) 13.7 - 17.5 g/dL 06/12/2025 7:[address] [facility] Hematocrit, Venous 36.0(L) 40.0 - 51.0 % 06/12/2025 7:[address] [facility] Sodium, Venous 142 136 - 145 mmol/L 06/12/2025 7:[address] [facility] Potassium, Venous 3.5(L) 3.6 - 4.9 mmol/L 06/12/2025 7:[address] [facility] POCT Chloride, Venous 107 97 - 107 mmol/L 06/12/2025 7:[address] [facility] Glucose, Venous 120(H) 74 - 99 mg/dL 06/12/2025 7:[address] [facility] Ionized Calcium, Venous 4.0(L) 4.6 - 5.1 mg/dL 06/12/2025 7:[address] [facility] Lactate, Venous 1.8 0.5 - 2.2 mmol/L 06/12/2025 7:[address] [facility] Body Temperature 37.0 Celsius 06/12/2025 7:[address] [facility] pH, Temp Corrected, Venous 7.29(L) 7.32 - 7.43 06/12/2025 7:[address] [facility] pCO2, Temp Corrected, Venous 56(H) 40 - 55 mm Hg 06/12/2025 7:[address] [facility] pO2, Temp Corrected, Venous 55(H) 25 - 40 mm Hg 06/12/2025 7:[address] [facility] Aeronautical Engineering Technologist ID Dyllan Wong 06/12/2025 7:[address] [facility] Blood, Venous Whole blood specimen / Unknown 06/12/2025 7:35 PM EDT 06/12/2025 7:36 PM EDT Dyllan Paul MD LAB POINT OF CARE TE ST DOCKED DEVICE UNSOLICITED RESULTS Final Result [facility] [address] [place] [address] * Transfuse RBC (06/12/2025 7:16 PM EDT) Afshin Reece MD BLOOD TRANSFUSION ORDERABLES Final Result * Transfuse RBC (06/12/2025 7:02 PM EDT) Afshin Reece MD BLOOD TRANSFUSION ORDERABLES Final Result * Prepare Leukocyte Reduced RBC: 4 Units (06/12/2025 6:49 PM EDT) Product Code Y8010R60 CH BLOO D BANK Dispense Status Returned BLOOD BANK Blood Expiration Date [id number] BLOOD BANK Unit Number [id number] CH B LOOD BANK Product Blood Type 5100 CH BLOOD BANK Blood Type O+ CH BLOOD BANK Crossmatch Compatible CH BLOOD BANK Product Code [id number] BLOO D BANK Dispense Status Returned CH BLOOD BANK Blood Expiration Date [id number] BLOOD BANK Unit Number [id number] CH B LOOD BANK Product Blood Type 5100 CH BLOOD BANK Blood Type O+ CH BLOOD BANK Crossmatch Compatible BLOOD BANK Product Code [id number] BLOO D BANK Dispense Status Transfused CH BLOOD BANK Blood Expiration Date [id number] BLOOD BANK Unit Number [id number] CH B LOOD BANK Product Blood Type 5100 CH BLOOD BANK Blood Type O+ CH BLOOD BANK Crossmatch Compatible BLOOD BANK Product Code [id number] BLOO D BANK Dispense Status Transfused CH BLOOD BANK Blood Expiration Date [id number] BLOOD BANK Unit Number [id number] CH B LOOD BANK Product Blood Type 5100 BLOOD BANK Blood Type O+ BLOOD BANK Crossmatch Compatible BLOOD BANK Other Afshin Reece MD BLOOD BANK PRODUCT ORDERABLES Edited Result - Final BLOOD BANK [address] [place] [address], * Surgical Pathology Exam (06/12/2025 6:07 PM EDT) Case Report Surgical Pathology Case: [id number] Authorizing Provider: Dyllan Paul MD Collected: 06/12/2025 1803 Ordering Location: [facility] OPERATING RO[facility] Received: 06/13/2025 0811 Pathologist: Aliza Daugherty MD Specimens: A) - Other (specify site), Prostate and seminal vesicles - fresh for permanent B) - Other (specify site), Bilateral pelvic lymph nodes - permanent 06/19/2025 10:43 AM EDT [facility] Final Diagnosis A. PROSTATE AND SEMINAL VESICLES, RADICAL PROSTATECTOMY: - PROSTATIC ADENOCARCINOMA, CARLEY'S 4+3 (GRADE GROUP 3, 60% PATTERN 4) WITH TERTIARY PATTERN 5. - NO SEMINAL VESICLE INVASION OR EXTRAPROSTATIC EXTENSION IDENTIFIED. - MARGINS FREE OF TUMOR. - APPROXIMATELY 3% OF GLAND INVOLVED BY TUMOR. - SEE CHECKLIST. B. LYMPH NODES, BILATERAL PELVIC, DISSECTION: - NO EVIDENCE OF METASTATIC CARCINOMA, EIGHT LYMPH NODES (0/8). 06/19/2025 10:43 AM EDT [facility] at 1043 EDT Synoptic Checklist PROSTATE GLAND: [...] (usual) Histologic Grade: Grade: Grade group 3 (Grayslake Score 4 + 3 = 7) Minor [...] Acute and chronic 06/19/2025 10:43 AM EDT [facility] Clinical Information PROSTATE CANCER 06/19/2025 10:43 AM EDT [facility] Gross Description A. PROSTATE AND SEMINAL VESICLES - FRESH FOR PERMANENT Specimen label: Prostate and seminal vesicles Specimen fixation: Formalin Specimen type: Radical Prostatectomy Specimen Weight: 75 grams Specimen Size: The prostate measures 5.0 cm sfja-vp-kilo, 5.1 cm wmpagmyb-nd-dyeqke ior, and 7.3 cm ctxr-sd-vilgd. The left seminal vesicle measures 1.5 x [...] cassettes. The prostate is serially sectioned from nbhu-ko-vgcf into 9, 5mm slices. Serial sections reveal [...] MD Cold Time: <1m 06/19/2025 10:43 AM [facility] Note: A resident was involved in the service. I attest I examined the relevant preparations for the specimens and confirmed the diagnosis or interpretation. 06/19/2025 10:43 AM [facility] Tissue Topography unknown / Unknown 06/12/2025 6:07 PM EDT 06/13/2025 8:11 AM EDT Comment:Pre-op diagnosis: PROSTATE CANCER Lymph node tissue specimen (specimen) Topography unknown / Unknown 06/12/2025 6:08 PM EDT 06/13/2025 8:11 AM EDT Comment:Pre-op diagnosis: PROSTATE CANCER Dyllan Paul MD LAB PATHOLOGY ORDERABLES Francia l Result Performing Organization Address City/[facility]/ZIP Co de Phone Number [facility] [address] [place] [address] * POCT glucose meter (06/12/2025 1:21 PM EDT) Pathologist [facility] POCT Glucose 83 74 - 99 mg/dL 06/12/2025 1:23 PM EDT [facility] Comment:Accuracy of a [...] Comment 06/12/2025 1:23 PM EDT [facility] Aeronautical Engineering Technologist ID Carol Proctor 06/12/2025 1:23 PM EDT [facility] Device ID [id number] 06/12/2025 1:23 PM EDT [facility]ALTH[facility] LAB Specimen Type POC Venous 06/12/2025 1:23 PM EDT [facility] Blood Venous blood specimen / Unknown 06/12/2025 1:21 PM EDT 06/12/2025 1:23 PM EDT us Dyllan Paul MD LAB POINT OF CARE TE ST DOCKED DEVICE UNSOLICITED RESULTS Final Result Performing Organization Address [facility] Co de Phone Number HEALTHCARE LAB [address] [place] [address] * Type and Screen (06/12/2025 1:14 PM EDT) ABO/Rh O Positive 06/12/2025 1:08 PM EDT BLOOD BANK Antibody Screen Negative 06/12/2025 1:08 PM EDT BLOOD BANK Specimen Expiration 06/15/2025 23:59 06/12/2025 1:08 PM EDT BLOOD BANK Blood Venous blood specimen / Unknown Venipuncture / Unknown 06/12/2025 1:14 PM EDT 06/12/2025 1:31 PM EDT Dyllan Paul MD LAB BLOOD BANK TEST ORDERABLE S Final Result BLOOD BANK [address] [place] [address], * Phosphatidylethanol (PEth), Whole Blood, Quantitative (06/12/2025 1:14 PM EDT) PEth 16:0/18:2 (PLPEth) 251 ng/mL 06/14/2025 11:37 AM EDT [facility] ([facility]) PEth 16:0/18:1 (POPEth) 260 ng/mL 06/14/2025 11:37 AM EDT [facility] ([email or web address]) EER Peth See Note 06/14/2025 11:37 AM EDT [facility] ([place]) PEth Interpretation See Comment 06/14/2025 11:37 AM EDT [facility] ([place]) Blood Venous blood specimen / Unknown Venipuncture [...] well established. Authorized individuals can access the [facility] Enhanced Report with an [employer] Connect account using the following link. Your local lab can assist you in obtaining the patient report if you don't have a Connect account. [email or web address] Phosphatidylethanol (PEth) is a group of phospholipids [...] developed and its performance characteristics determined by [facility]. It has not been cleared or approved by the U.S. Food and Drug Administration. This test was performed in a CLIA-certified laboratory and is intended for clinical purposes. Performed By: [facility] [address] [id number] Plating Technician: Sotero Banuelos MD, PhD CLIA Number: [id number] us Dyllan Paul MD LAB REF LAB BLOOD AND FLUID O RD Final Result [employer] ([facility]) [address] [place] [address] documented in this encounter Visit Diagnoses Diagnosis Prostate CA (CMS/HCC)- Primary Malignant neoplasm of prostate Prostate CA (CMS/HCC) Malignant neoplasm of prostate Alcohol use disorder On mechanically assisted ventilation (CMS/HCC) Leukocytosis, unspecified type Hypotension due to hypovolemia Hypocalcemia Hyperbilirubinemia Disorders of bilirubin excretion Electrolyte abnormality Electrolyte and fluid disorders not elsewhere classified Severe obesity (BMI 35.0-39.9) with comorbidity (CMS/HCC) SCC (squamous cell carcinoma), leg, left Renal calculi Calculus of kidney Other secondary hypertension Alcoholic cirrhosis of liver with ascites (CMS/HCC) H/O prostatectomy Hepatic cirrhosis, unspecified hepatic cirrhosis type, unspecified whether ascites present (CMS/HCC) Severe obesity (BMI 35.0-39.9) with comorbidity (CMS/HCC) [...] this encounter Admitting Diagnoses Diagnosis Prostate CA (CMS/HCC) Malignant neoplasm of prostate documented in this [...] Once in imaging, 1 dose, Starting on 06/22/25 at 0847, Until 06/22/25 at 0850, Routine, Imaging Protocol Orders Given 06/22/2025 8:50 AM EDT 100 mL iohexol (OMNIPaque) 350 MG/ML injection 100 mL 100 mL, Intravenous, Once in imaging, 1 dose, Starting on Mon06/22/25 at 1348, Until 06/22/25 at 1416, Routine, Imaging Protocol Orders [...] hours RT, 8 doses, First dose on Mon06/12/25 at 2230, Last dose on Mon06/14/25 at [...] infusion 84 mL/hr, Intravenous, Continuous, Starting on Eunice 06/12/25 at 2130, Until 06/14/25 at 1353, Routine [...] Oral, Nightly PRN, Starting on Mon06/12/25 at 2040, Until Mon06/25/25 at 2112, Routine, Recovery(Phase II-Outpatient)/On Unit(Inpatient), sleep Given 06/23/2025 [...] 3:52 AM EDT 4.5 g 36.7 mL/hr New Bag 06/18/2025 6:53 PM EDT 4.5 g [...] Pyxis Override Pull 1 dose, Starting on Eunice 06/12/25 at 2120, Until Mon06/12/25 at 2128 propofol (Diprivan) infusion 10 mg/mL 5-50 mcg/kg/min 109 kg (3.27-32.7 mL/hr), Intravenous, Titrated, Starting on Eunice 06/12/25 at 2215, Until Mon06/16/25 at 0842, Routine [...] 1 tablet, Oral, Nightly, First dose on Mon06/12/25 at 2130, Until [...] Discontinued, Routine 214 (Given - Provider: Bianka Phillips RN) 224 (Given - Provider: Gill White [...] refused) 1128 (Not Given - Provider: Jeff Gómez, RN - Reason: Patient/family refused) carvedilol (Coreg) tablet 3.125 mg (CANCELED) 3.125 mg, Nasogastric, 2 times daily, First dose on Mon06/18/25 at 0900, Until Discontinued, Routine 0831 (Given - Provider: Samia Santos RN)214 (Given - Provider: Bianka Phillips RN) 0833 (Given - Provider: Jeff Gómez, RN) carvedilol (Coreg) tablet 3.125 mg 3.125 mg, Oral, 2 times daily, First dose (after last modification) on Mon06/24/25 at 2100, Until Discontinued, Routine 224 (Given - Provider: Gill White RN - Comment: pt care) 0829 (Given - Provider: Jeff Gómez, RN)2100 (Canceled Entry - Provider: Automatic Discharge Provider - Comment: Automatically canceled at discontinue of medication order) enoxaparin (Lovenox) syringe 120 mg 120 mg (rounded from 116 mg = 1 mg/kg 116 kg), Subcutaneous, Every 12 hours, First dose on Mon06/22/25 at 2100, Until Discontinued, Routine 0916 (Given - Provider: Samia Santos RN)214 (Given - Provider: Bianka Phillips RN) 0833 (Given - Provider: Jeff Gómez RN)224 (Given - Provider: Gill White RN - Comment: pt care) 08 (Given - Provider: Jeff Gómez RN)2100 (Canceled Entry - Provider: Automatic Discharge Provider - Comment: Automatically canceled at discontinue of medication order) folic acid (Folvite) tablet 1 mg 1 mg, Nasogastric, Daily, First dose (after last modification) on Mon06/17/25 at 0900, Until Discontinued, Routine 0831 (Given - Provider: Samia Santos RN) 0833 (Given - Provider: Jeff Gómez RN) 08 (Given - Provider: Jeff Gómez RN) Abiel powder 1 packet 1 packet, Nasogastric, 2 times daily, First dose on Mon06/17/25 at 1430, Until Discontinued, Routine 0832 (Given - Provider: Samia Santos RN)2100 (Not Given - Provider: Bianka Phillips RN - Reason: Patient/family refused) 0832 (Given - Provider: Jeff Gómez RN)224 (Given - Provider: Gill White RN [...] Phillips RN - Reason: Patient/family refused) 2241 (Not Given - Provider: Gill White RN - Reason: Patient/family refused - Comment: pt care) methocarbamol (Robaxin) tablet 750 mg 750 mg, Nasogastric, 4 times daily, First dose (after last modification) on Mon06/17/25 at 0900, Until Discontinued, Routine 0831 (Given - Provider: Samia Santos RN)1500 (Given - Provider: Samia Santos RN)1728 [...] care) 0829 (Given - Provider: Jeff Gómez RN)1359 (Not Given - Provider: Jeff Gómez [...] Bianka Phillips RN - Reason: Patient/family refused) 224 (Given - Provider: Gill White RN - Comment: pt care) 2100 (Canceled Entry - Provider: Automatic Discharge Provider - Comment: Automatically canceled at discontinue of medication order) sodium chloride 0.9 % flush 10 mL(Linked Group 1) 10 mL, Intravenous, Every 12 hours, First dose on Eunice 06/12/25 at 2130, Until Discontinued, Routine, Recovery(Phase II-Outpatient)/On Unit(Inpatient) 0832 (Given - Provider: Samia Santos RN)2130 (Canceled Entry - Provider: Automatic Discharge Provider - Comment: Automatically canceled at discontinue of medication order) 0845 (Given - Provider: Jeff Gómez RN)2244 (Given - Provider: Gill White, TIERA) 0836 (Given - Provider: Jeff Gómez, TIERA) thiamine (Vitamin B-1) tablet 100 mg 100 [...] Ruffin, RN)2234 (Given - Provider: Bianka Phillips, RN) ondansetron (Zofran) injection 4 mg 4 mg, Intravenous, Every 6 hours PRN, Starting on Mon06/12/25 at 2039, Until Mon06/25/25 at 2111, Routine, Recovery(Phase II-Outpatient)/On Unit(Inpatient), nausea, vomiting 1500 (Given - Provider: Jeff Gómez, RN) sodium chloride 0.9 % flush 10 mL(Linked [...] 2130, Until Discontinued, Routine, Recovery(Phase II-Outpatient)/On Unit(Inpatient) And sodium chloride 0.9 % flush 10 mLJump to med 10 mL, Intravenous, As needed, Starting on Eunice 06/12/25 at 2040, Until Mon06/25/25 at 2111, Routine, Recovery(Phase II-Outpatient)/On [...] documented as of this encounter Care Teams Designer And Patternmaker Relationship Specialty Start Date End Date Murray Prajapati MD [address] [facility], [place] [address] [place] [phone] PCP - General 03/06/23 Jaja Camara APRN [address] [facility] [address] [place] [id number] Referring Physician Gastroenterology 03/06/23 Dyllan Paul MD [address] [id number] Surgeon Urology 04/29/25 documented as of this encounter
--- OUTSIDE RECORDS SUMMARY | 2025-06-12 12:35 | XMS_ITS | Encounter Summary ---
Author Organization [facility] Address [address] [place] [address] Care Team Providers Care Welder And Fitter Name Role Phone Murray Prajapati MD Primary Care Provider [phone] Jaja Camara MINES SAFETY ENGINEER Unavailable [phone] Dyllan Paul MD Unavailable [phone] Reason for Visit * Auth/Cert (Routine) Specialty Diagnoses / Procedures Referred By Silverio barone Referred To Contact Diagnoses Prostate CA ([facility]) PROSTATE CANCER Procedures AK LAP,PROSTATECTOMY,RADICAL, W/NERVE SPARE,INCL ROBOTIC PROSTATECTOMY, RADICAL, ROBOT-ASSISTED Dyllan Paul MD [address] [address] Phone: tel: fax: [facility] [address] [place] [address] Phone: tel: Referral ID Status Reason Start Date Expiration Date Visits Re quested Visits Authorized [id number] 1 1 Encounter Details Date Type Department Care Team (Late st Contact Info) Description 06/12/2025 12:35 PM EDT - 06/12/2025 5:30 PM EDT Surgery [facility] [address] [place] [address] Dyllan Paul MD [address] [address] PROSTATECTOMY, RADICAL, ROBOT-ASSISTED [22490 (CPT )] Surgery Details Date/Time Status Location [...] confirm your location ahead of your appointment) [facility] [address] [address] [facility], [facility], [address] [place] [address] Clinic After Hours [facility] Multidisciplinary Urology Clinic [address] [facility] 1st [place] [address] Clinic documented in this encounter Medications at Time of Discharge atorvastatin (Lipitor) 10 MG tablet Take 1 tablet by mouth daily. enoxaparin (Lovenox) 120 MG/0.8ML solution prefilled syringe Inject 0.8 mL under the skin every 12 hours. 180 each 06/25/2025 multivitamin-iron -minerals-folic acid (Centrum) chewable tablet [...] from the original note were not included. [id number] Preventing Kidney Stones If you?ve had a [...] cystine. Last Reviewed Date: 2025 00:00:00 ?? [id number] The [employer]. All rights reserved. This information is not intended as a substitute for professional medical care. Always follow your healthcare professional's instructions. * Yina Zavala RN - 06/25/2025 5:19 [...] not available in your area, call the [facility] at [phone]. * Yina Zavala RN - 06/25/2025 5:19 PM EDT Images from the original note were not included. [id number] Enoxaparin Injection IMPORTANT WARNING: If you have [...] be awakened, immediately call emergency services at [phone]. What OTHER INFORMATION should I know? Keep [...] of all of the prescription and nonprescription (hikf-dxd-ydwlxny) medicines, vitamins, minerals, and dietary supplements you [...] or pharmacist about specific clinical use. The [place] [employer] represents that the information provided hereunder was formulated with a reasonable standard of care, and in conformity with professional standards in the field. The [place] [employer] makes no representations or warranties, express or implied, including, but not limited to, any implied warranty of merchantability and/or fitness for a particular purpose, with respect to such information and specifically disclaims all such warranties. Users are advised that decisions regarding drug therapy are complex medical decisions requiring the independent, informed decision of an appropriate health child care giver, and the information is provided for informational purposes only. The entire monograph for a drug should be reviewed for a thorough understanding of the drug's actions, uses and side effects. The [place] [employer] does not endorse or recommend the use of any drug.The information is not a substitute for medical care. AHFS?? Patient Medication Information?. ?? Copyright, 2023. The [employer]??, [address], [address], [place], [place]. All Rights Reserved. Duplication for commercial use must be authorized by [facility]. Selected Revisions: June 08, 2024. AHFS?? Patient Medication Information?. ?? Copyright, 2024 * [facility] Yina Kruse RN - 06/25/2025 5:19 PM EDT Images from the original note were not included. [id number] Methocarbamol WHY is this medicine prescribed? Methocarbamol [...] be awakened, immediately call emergency services at [phone]. What OTHER INFORMATION should I know? Keep all appointments with your doctor. Do not let anyone else take your medication. Ask your pharmacist any questions you have about refilling your prescription. Keep a written list of all of the prescription and nonprescription (uzmw-bpu-vheaeue) medicines, vitamins, minerals, and dietary supplements you [...] or pharmacist about specific clinical use. The [place] [employer] represents that the information provided hereunder was formulated with a reasonable standard of care, and in conformity with professional standards in the field. The [place] [employer] makes no representations or warranties, express or implied, including, but not limited to, any implied warranty of merchantability and/or fitness for a particular purpose, with respect to such information and specifically disclaims all such warranties. Users are advised that decisions regarding drug therapy are complex medical decisions requiring the independent, informed decision of an appropriate health child care giver, and the information is provided for informational purposes only. The entire monograph for a drug should be reviewed for a thorough understanding of the drug's actions, uses and side effects. The [place] [employer] does not endorse or recommend the use of any drug.The information is not a substitute for medical care. AHFS?? Patient Medication Information?. ?? Copyright, 2023. The [employer]??, [address], [address], [place], [place]. All Rights Reserved. Duplication for commercial use must be authorized by [facility]. Selected Revisions: July 04, 2017. AHFS?? Patient Medication Information?. ?? Copyright, 2024 * [place] - Yina Kruse RN - 06/25/2025 5:19 PM EDT Images from the original note were not included. [id number] Stool Softeners WHY is this medicine prescribed? [...] to the Food and Drug Administration's (FDA) Myrekstch Adverse Event Reporting program online (https://www.fda.gov/Safety/MedWatch) or [...] and out of their sight and reach. https://www.[employer].org Dispose of unneeded medications in a way [...] of all of the prescription and nonprescription (mwlc-lug-rsxzwso) medicines, vitamins, minerals, and dietary supplements you [...] or pharmacist about specific clinical use. The [place] [employer] represents that the information provided hereunder was formulated with a reasonable standard of care, and in conformity with professional standards in the field. The [place] [employer] makes no representations or warranties, express or implied, including, but not limited to, any implied warranty of merchantability and/or fitness for a particular purpose, with respect to such information and specifically disclaims all such warranties. Users are advised that decisions regarding drug therapy are complex medical decisions requiring the independent, informed decision of an appropriate health child care giver, and the information is provided for informational purposes only. The entire monograph for a drug should be reviewed for a thorough understanding of the drug's actions, uses and side effects. The [place] [employer] does not endorse or recommend the use of any drug.The information is not a substitute for medical care. AHFS?? Patient Medication Information?. ?? Copyright, 2023. The [employer]??, [address], [address], [place], [place]. All Rights Reserved. Duplication for commercial use must be authorized by [facility]. Selected Revisions: May 09, 2024. AHFS?? Patient Medication Information?. ?? Copyright, 2024 * [place] - Yina Kruse RN - 06/25/2025 5:19 PM EDT Images from the original note were not included. [id number] Pulmonary Embolism (PE) A pulmonary embolus is [...] cut Last Reviewed Date: 2022 00:00:00 ?? [id number] The [employer]. All rights reserved. This information is not intended as a substitute for professional medical care. Always follow your healthcare professional's instructions. * [facility] Yina Kruse RN - 06/25/2025 5:19 PM EDT Images from the original note were not included. [id number] Discharge Instructions for Pulmonary Embolism A deep [...] bleeding. Last Reviewed Date: 2024 00:00:00 ?? [id number] The UC[employer]. All rights reserved. This information is not intended as a substitute for professional medical care. Always follow your healthcare professional's instructions. * Laury SolorioMIRTH[facility] - Yina Kruse RN - 06/25/2025 5:19 PM EDT Images from the original note were not included. [id number] Lactulose WHY is this medicine prescribed? Lactulose [...] of all of the prescription and nonprescription (itud-kkm-jhkpryj) medicines, vitamins, minerals, and dietary supplements you [...] or pharmacist about specific clinical use. The [place] [employer] represents that the information provided hereunder was formulated with a reasonable standard of care, and in conformity with professional standards in the field. The [place] [employer] makes no representations or warranties, express or implied, including, but not limited to, any implied warranty of merchantability and/or fitness for a particular purpose, with respect to such information and specifically disclaims all such warranties. Users are advised that decisions regarding drug therapy are complex medical decisions requiring the independent, informed decision of an appropriate health child care giver, and the information is provided for informational purposes only. The entire monograph for a drug should be reviewed for a thorough understanding of the drug's actions, uses and side effects. The [place] [employer] does not endorse or recommend the use of any drug.The information is not a substitute for medical care. AHFS?? Patient Medication Information?. ?? Copyright, 2023. The [employer]??, [address], [address], [place], [place]. All Rights Reserved. Duplication for commercial use must be authorized by [facility]. Selected Revisions: December 04, 2023. AHFS?? Patient Medication Information?. ?? Copyright, 2024 * [facility] Yina Kruse RN - 06/25/2025 5:19 PM EDT Images from the original note were not included. [id number] Orchitis Orchitis is inflammation of the testicles. [...] you're feeling better. ? You may use utsi-lxc-fxcteso medicines to control pain, unless you were [...] Last Reviewed Date: 2025 00:00:00 ?? The UCAN. All rights reserved. This information is not intended as a substitute for professional medical care. Always follow your healthcare professional's instructions. * Laury Espino - Yina Kruse RN - 06/25/2025 5:19 PM EDT Images from the original note were not included. [id number] Preventing a Surgical Site Infection A risk [...] of infection. ? Controlled body temperature. A djcgw-fdqp-xegokd temperature during or after surgery prevents oxygen [...] and water or with an alcohol-based hand med specialist before and after caring for you. Don?t [...] away. Last Reviewed Date: 2024 00:00:00 ?? [id number] The UC[employer]. All rights reserved. This information is not intended as a substitute for professional medical care. Always follow your healthcare professional's instructions. * Laury OnIR - Yina Kruse RN - 06/25/2025 5:19 PM EDT Images from the original note were not included. [id number] Acetaminophen IMPORTANT WARNING: Taking too much acetaminophen [...] measuring cup or syringe provided by the assistant infant toddler teacher to measure each dose of the solution [...] be awakened, immediately call emergency services at 112. If someone takes more than the recommended [...] of all of the prescription and nonprescription (lzrk-nnh-oolpsqo) medicines, vitamins, minerals, and dietary supplements you [...] a combination product containing Acetaminophen, Oxycodone) APAP, T-kqucla-ctgb-aminophenol, Paracetamol This report on medications is for your information only, and is not considered individual patient advice. Because of the changing nature of drug information, please consult your physician or pharmacist about specific clinical use. The [place] [employer] represents that the information provided hereunder was formulated with a reasonable standard of care, and in conformity with professional standards in the field. The [place] [employer] makes no representations or warranties, express or implied, including, but not limited to, any implied warranty of merchantability and/or fitness for a particular purpose, with respect to such information and specifically disclaims all such warranties. Users are advised that decisions regarding drug therapy are complex medical decisions requiring the independent, informed decision of an appropriate health child care giver, and the information is provided for informational purposes only. The entire monograph for a drug should be reviewed for a thorough understanding of the drug's actions, uses and side effects. The [place] [employer] does not endorse or recommend the use of any drug.The information is not a substitute for medical care. AHFS?? Patient Medication Information?. ?? Copyright, 2023. The [employer]??, [address], [address], [place], [place]. All Rights Reserved. Duplication for commercial use must be authorized by [facility]. Selected Revisions: August 04, 2023. AHFS?? Patient Medication Information?. ?? Copyright, 2024 * Discharge Summary - Bianka Hansen MD - 06/25/2025 4:15 PM EDT Hospitalization Admit Date/Time: 06/12/2025 10:20 AM Admitting Attending: Dyllan Paul Discharge Date: 06/25/25 Discharge Attending Physician: Dyllan Paul MD PCP name and Address: Murray Prajapati MD [address] [facility] [address] / [place] [id number] Referring provider name and address: No referring provider defined for this encounter. Chief Concern, Brief History of Present Illness, and Hospital Course Eber Lowe is a 70 y.o. male with PMH unfavorable intermediate risk prostate cancer, GG3 diffusely on the left, PSA 4.7 who presented to [facility] ED for planned surgical intervention. They [...] a day as needed for muscle spasms. qlmglmtmmfpb-rdue-nccyyrcp-folic acid chewable tablet Chew 1 tablet daily. [...] Your Medications These medications were sent to [facility] [place], [place] - [address] [place] [id number] acetaminophen 500 MG tablet enoxaparin 120 MG/0.8ML [...] confirm your location ahead of your appointment) [facility] at [facility] [address], 2nd Floor, [facility], [address] [place] [address] Clinic After Hours [facility] Multidisciplinary Urology Clinic [address] [place] [address] Clinic Outpatient Follow-Up No future appointments. Test [...] Hansen MD Department of Urology, PGY-1 Pager: [phone] I spent >30 minutes of patient care [...] Mobility Bed Mobility Exam: Scooting/Bridging Level of Preston: Contact guard (to scoot EOB in sitting) Physical/Nonphysical Assist: Verbal Cues, Nonverbal cues (demo/gestures), Additional assist utilized for safety, Minimal cues Assistive Device: Bed rails Bed Mobility Exam: Supine to Sit Level of Preston: Stand-by assist Physical/Nonphysical Assist: Verbal Cues, Minimal cues Assistive Device: Bed rails Transfers Transfer Exam: Sit to stand Level of [place]: Stand-by assist Physical/Nonphysical Assist: Nonverbal cues (demo/gestures), Verbal Cues, Minimal cues Assistive Device: Walker, rolling Transfer Exam: Stand to Sit Level of [place]: Stand-by assist Physical/Nonphysical Assist: Nonverbal cues (demo/gestures), [...] provided additional clean abdominal binder. Standardized Assessments [facility] 6-Clicks Mobility Assessment Difficulty patient has [...] 3-5 steps with a railing?: A little [facility] 6-Clicks Mobility Assessment Total : 18 [...] 1:30 PM. * Progress Notes - Mick Campoverde, - 06/25/2025 11:46 AM EDT Images from [...] (), obesity, prostate cancer, renal calculi, MRSA (2013), [...] Can consider referral to [facility] for termite control representative management of cirrhosis. It appears the patient has been getting routine HCC screening through transplant so it would be reasonable to continue follow-up with Transplant and forego a hepatology referral. This can be decided at the discretion of the primary team and the patient. Jairo Campoverde DO PGY-3 [facility] - [facility] Medicine Epic Chat preferred; Pager [phone] Cosigned by Nir Aguilar MD at 06/25/2025 [...] resolve due to cirrhosis. The need for halfway lactulose at this point is not known [...] sign off at this time. lease page [phone] with any additional questions, or resident on-call [...] Hansen MD - 06/25/2025 5:41 AM EDT [facility] Inpatient Progress Note Primary Attending: Dyllan [...] Type: Bulb Size (Fr.): 10 Fr. Drain Columbine Size (mL): 100 mL Urethral Catheter Double-lumen;Non-latex [...] for analysis - Appreciate Medicine recs for shelter anticoagulation and PE findings - Will discuss [...] Hansen MD Department of Urology, PGY-1 Pager: [phone] Cosigned by Dyllan Paul MD at 06/29/2025 [...] Ongoing, Progressing Intervention: Promote Activity and Functional [place] Flowsheets (Taken 06/25/2025344) Activity Assistance Provided: assistance, [...] Hansen MD - 06/24/2025 6:55 PM EDT [facility] In[facility] Progress Note Primary Attending: Dyllan [...] Type: Bulb Size (Fr.): 10 Fr. 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 Exam - no asterixis - firm abdomen with evidence of ascites - 2+ LE edema * Progress Notes - Sheryl Huerta RN - 06/24/2025 8:26 AM EDT Rx for RW sent to [facility] via [facility] for bedside delivery. No [...] Transfer Exam: Sit to stand Level of Preston: Contact guard Physical/Nonphysical Assist: Nonverbal cues (demo/gestures), Verbal Cues, Minimal cues Assistive Device: Walker, rolling Transfer Exam: Stand to Sit Level of Preston: Contact guard Physical/Nonphysical Assist: Nonverbal cues (demo/gestures), Verbal Cues, Minimal cues Assistive Device: Walker, rolling Transfer Exam: Bed to Chair/Chair to Bed Level of Preston: Minimum assist (75% patient's effort) Physical/Nonphysical Assist: Verbal Cues, Maximal cues, 1 person + 1 person to manage equipment, Nonverbal cues (demo/gestures), Additional assist utilized for safety Type of Transfer: Sidesteps Assistive Device: Hand held assist Toilet Transfer Level of Preston: Contact guard Physical/Nonphysical Assist: Verbal Cues, Nonverbal [...] and safety in home setting. Standardized Assessments [facility] 6-Clicks Mobility Assessment Difficulty patient has [...] 3-5 steps with a railing?: A little [facility] 6-Clicks Mobility Assessment Total : 18 [...] Note Eber Lowe 70 y.o. male CSN: [id number] Admission: 06/12/2025 10:20 AM Primary Problem: Prostate CA (CMS/HCC) Anticipated Discharge Date: 06/26/25 Has Discharge Plans Changed? Medicare Second Notice: Housing Circumstances: Housing Circumstances Action Taken: Medically Ready for Discharge: Additional Comments Per PT/OT pt has HH PT/OT recs, referral sent to agencies via [facility] for acceptance. POC reviewed with primary team. Refer to primary team's note for details. Pt is not medically readyfor discharge. In??KELLY Baltazar, manager credit * Consults - Crystal Corley RD - 06/23/2025 12:59 PM EDT Adult Nutrition Evaluation Note Eber Lowe 70 y.o. male CSN: [id number] Room/Bed 227/227A Nutrition evaluation type: follow-up Reason for evaluation: Hospital course: 70 y.o male admitted with prostate cancer. OR 06/12 for robot assisted laparotomy prostatectomy with bilateral pelvic lymph node dissection requiring ex-lap. 06/23: PSYCHIATRIC ASSISTANT on 06/22: Regular (IDDSI Level 7) diet w/ thin liquids (Level 0). Meds as able. No further PSYCHIATRIC ASSISTANT services indicated at this time. + liquid stools- diff stool test. Past medical/ surgical history: Past Medical History[1] Surgical History[2] Social history: Additional comments: Visited room. TF running at 40 ml/hr. Tolerating per RN. Vitals and Basic Assessment: BP: 130/74 Temp: 36.4 ??C (97.5 ??F) Invasive Ventilator Initiated (ETT/Trach Only): Yes Oxygen Therapy: None (Room air) O2 Delivery Method: Nasal cannula [place] Coma Scale Score: 15 Alex Scale Score: [...] 37.68 Weight Evaluation: Obese-Class 2 (BMI 35-39.9) [place] Body Weight (kg): 72.7 Percent [place] Body Weight: 150 Adjusted Body Weight (kg): [...] Date Cancer (CMS/HCC) january 26, 2025 Cirrhosis ([facility]/HCC) 2021 History of methicillin resistant Staphylococcus [...] pt and family on purchasing options via [employer])) Subjective I will try the scrotal sling after I take a shower. Participants in Care Family/Caregiver Present: Yes Family/Caregiver: Spouse Disability Aide: Not Applicable Presentation Oxygen Therapy: None (Room [...] Transfer Exam: Sit to stand Level of Preston: Contact guard Physical/Nonphysical Assist: Nonverbal cues (demo/gestures), Verbal Cues, Minimal cues Assistive Device: Walker, rolling Transfer Exam: Stand to Sit Level of Preston: Contact guard Physical/Nonphysical Assist: Nonverbal cues (demo/gestures), Verbal Cues, Minimal cues Assistive Device: Walker, rolling Toilet Transfer Level of Preston: Contact guard Physical/Nonphysical Assist: Set-up required, Verbal [...] pt and family on purchasing options via [employer])) Plan Continue with established OT plan of [...] Mariely Olson - 06/23/2025 7:22 AM EDT [facility] In[facility] Progress Note Primary Attending: Dyllan [...] Type: Bulb Size (Fr.): 10 Fr. Drain [place] Size (mL): 100 mL Urethral Catheter Double-lumen;Non-latex [...] Earl MD - 06/22/2025 1:06 PM EDT [facility] In[facility] Progress Note Primary Attending: Dyllan [...] Type: Bulb Size (Fr.): 10 Fr. Drain [place] Size (mL): 100 mL Urethral Catheter Double-lumen;Non-latex [...] able HTN - continue home carvedilol Kalyani Kma DO Internal Medicine Resident PGY-3 Epic Chat [...] care. * Progress Notes - Aurea Rodrigues, [facility]-PSYCHIATRIC ASSISTANT - 06/22/2025 10:27 AM EDT Speech Language Pathology Clinical Swallow Initial Evaluation Patient Name: Eber Lowe Age: 70 y.o. Today's Date: 06/22/2025 Recommendations: Regular (IDDSI Level 7) diet w/ thin liquids (Level 0). Meds as able. No further PSYCHIATRIC ASSISTANT services indicated at this time. Will sign [...] Feeding Trials: Positionin degrees, upright Feeding assistance: PSYCHIATRIC ASSISTANT presented PO trials to patient Consistencies Administered: thin liquid via straw and dry solid consistency [place] Swallow Protocol (Johnna and Peggyr, 2014) - [...] (Level 0). Meds as able. No further PSYCHIATRIC ASSISTANT services indicated at this time. Will sign [...] Earl MD - 06/21/2025 7:16 AM EDT [facility] Inpatient Progress Note Primary Attending: Dyllan [...] Type: Bulb Size (Fr.): 10 Fr. Drain Columbine Size (mL): 100 mL Urethral Catheter Double-lumen;Non-latex [...] admission Level of Mobility Ambulatory- community Mobility [place] Independent gait without device History of Falls [...] is worn out. Visitors Present Yes Spouse Disability Aide (if applicable) N/A OBJECTIVE Vital Signs Pre-Session [...] activity throughout session. BED MOBILITY Level of Preston Physical/Non- physical Assist Adaptive Equipment Utilized Rolling/ Turning Scooting/ Bridging Contact guard (to scoot out to EOB while seated) Nonverbal cues (demo/gestures), Verbal Cues, Minimal cues Other (CAKE WINDER) Supine to Sit Moderate assist (50% patient's effort) HOB elevated, Nonverbal cues (demo/gestures), Verbal Cues, Minimal cues, Additional assist utilized for safety Other (CAKE WINDER for leverage) Sit to Supine Interventions TRANSFERS Level of Preston Physical/Non- physical Assist Adaptive Equipment Utilized Sit [...] Interventions BALANCE Interventions Postural Appearance Level of Preston Balance Support Interventions Static Sit Contact guard Feet supported Dynamic Sit Minimum assistance Feet supported Dynamic Sitting-Balance: Anterior/Posterior weight shifts, Lateral weight shifts Static Stand Minimum assistance Right upper extremity support, Left upper extremity support (CAKE WINDER x 2) Patient stood with CAKE WINDER x 2 while being cleaned up + brief change prior to sitting down in chair. Stood ~ 5 min. Dynamic Stand Minimum assistance Left upper extremity support, Right upper extremity support (CAKE WINDER x2) Lateral weight shifts, Anterior/Posterior weight shifts AMBULATION Level of Preston Distance Adaptive Equipment Utilized Ambulation Minimum assistance [...] accessed by patient at the following: URL: [email or web address] Access Code: [email or web address] Date: 06/20/25 Prepared by: Eva French, PT [...] in Care Family/Caregiver Present: Yes Family/Caregiver: Spouse Disability Aide: Not Applicable Presentation Oxygen Therapy: None (Room [...] Mobility Bed Mobility Exam: Scooting/Bridging Level of Preston: Contact guard (to scoot out to EOB while seated) Physical/Nonphysical Assist: Nonverbal cues (demo/gestures), Verbal Cues, Minimal cues Assistive Device: Other (CAKE WINDER) Bed Mobility Exam: Supine to Sit Level of Preston: Moderate assist (50% patient's effort) Physical/Nonphysical Assist: HOB elevated, Nonverbal cues (demo/gestures), Verbal Cues, Minimal cues, Additional assist utilized for safety Assistive Device: Other (CAKE WINDER for leverage) Transfers Transfer Exam: Sit to stand Level of Preston: Minimum assist (75% patient's effort) Physical/Nonphysical Assist: Nonverbal cues (demo/gestures), Verbal Cues, Minimal cues, Additional assist utilized for safety Assistive Device: Hand held assist Transfer Exam: Stand to Sit Level of Preston: Minimum assist (75% patient's effort) Physical/Nonphysical Assist: Nonverbal cues (demo/gestures), Verbal Cues, Minimal cues, Additional assist utilized for safety Assistive Device: Hand held assist Transfer Exam: Bed to Chair/Chair to Bed Level of Preston: Minimum assist (75% patient's effort) Physical/Nonphysical Assist: [...] below regarding pt individualized HEP: Access Code: [email or web address] URL: [email or web address] Date: 06/20/2025 Prepared by: Exercises - Seated [...] at 1:37 PM. * Procedures - Yolande Allison RN - 06/20/2025 11:13 AM EDT Procedures Lab draw, one attempt, successful * Clinician Note - Jeff Penaloza 06/20/2025 11:11 AM EDT Speech Language Pathology Attempt Patient Name: Eber Lowe Age: 70 y.o. Today's Date: 06/20/2025 Pt participating in testing at bedside upon PSYCHIATRIC ASSISTANT entrance. PSYCHIATRIC ASSISTANT spoke with pt's who reported that pt ate and drank yesterday without concerns. She stated that she would discuss participation in the clinical swallow evaluation with pt when he is done with the current testing. PSYCHIATRIC ASSISTANT to check back asscheduling allows. Jeff Penaloza MA, CCC-PSYCHIATRIC ASSISTANT, [facility] Speech Language Pathologist * Progress Notes - Homar Grajeda - 06/20/2025 10:22 AM EDT [facility] Inpatient Progress Note Primary Attending: Dyllan [...] Type: Bulb Size (Fr.): 10 Fr. Drain Columbine Size (mL): 100 mL Urethral Catheter Double-lumen;Non-latex [...] saw and evaluated the patient with the medical/HARDWOOD FLOOR INSTALLER/PA student. I discussed the case with the medical/HARDWOOD FLOOR INSTALLER/PA student and agree with the findings and [...] 12:35 PM EDTAssociated Order(s): IP CONSULT TO [facility] Images from the original [...] upgraded to ICU level of status and [facility] assisted with care. [facility] Medicine consulted on 06/19 after downgrade out of ICU when [facility] signed off for management of [...] mg, 2 times daily (0900 & 1500) vyatcwfauucn-hjqd-nuqwvyxv-folic acid (Centrum) chewable tablet 1 tablet, Daily [...] Note Eber Lowe 70 y.o. male CSN: [id number] Admission: 06/12/2025 10:20 AM Primary Problem: Prostate CA (CMS/HCC) Anticipated Discharge Date: 06/23/25 Has Discharge Plans Changed? Medicare Second Notice: Housing Circumstances: Housing Circumstances Action Taken: Medically Ready for Discharge: Additional Comments POC reviewed with primary team. Refer to primary team's note for details. Pt is not medically readyfor discharge. In??KELLY Baltazar, manager credit * Consults - Eva Acosta APRN - 06/19/2025 10:34 AM EDTAssociated Order(s): IP CONSULT TO PHYSICAL MEDICINE REHAB Images from the original note were not included. PHYSICAL MEDICINE & REHABILITATION INPATIENT CONSULT NOTE Patient: Eber Lowe : 1955 PCP: Murray Prajapati MD at [address] [place] [address] [address] / [place] [address] Payor: DANIKA / Plan: ANTHEM TRADITIONAL/[place] STATE/[facility] BCBS / Product Type: *No Product type* [...] has now passed bedside swallow eval with PSYCHIATRIC ASSISTANT and cleared to advance diet as tolerated [...] his normal when he wakes up initially. [place] like the propofol was still a factor in confusion. I explained there were a multitude of factors when hospitalized, anesthesia, infection, etc. Pt was placed in [facility] last HS, and pt has no memory of this, or why. Very pleasant, following commands. PMH: Past Medical History[1] PSH: Surgical History[2] Allergies: Allergies[3] Home Medications: Current Outpatient Medications Medication Instructions atorvastatin (LIPITOR) 10 mg, Daily carvedilol (COREG) 3.125 mg, Oral, 2 times daily furosemide (LASIX) 40 mg, 2 times daily (0900 & 1500) haawhlnzyymp-komz-rtxhaprm-folic acid (Centrum) chewable tablet 1 tablet, Daily potassium chloride CR (Klor-Con) 10 MEQ ER tablet 10 mEq, Daily Vitamin E 1,000 Units, Daily Active Medications: Continuous: Current Continuous Medications[4]Scheduled: Current Scheduled Medications[5]PRN: Current PRN Medications[6] Family history: Family History[7] Social history: Marital Status: , Javon Children: 3 children Previous Residence: lives with in [place], [place] in a 1.5 story house with [...] admission Level of Mobility: Ambulatory- community Mobility Preston: Independent gait without device History of Falls: No ADL Performance: Independent Current: Mobility Bed Mobility Exam: Scooting/Bridging Level of Preston: Moderate assist (50% patient's effort) (progressing to CGA; to scoot anterior/posteriorly) Physical/Nonphysical Assist: Verbal Cues, Moderate cues, Nonverbal cues (demo/gestures), Additionalassist utilized for safety Assistive Device: Other (draw sheet) Bed Mobility Exam: Supine to Sit Level of Preston: Moderate assist (50% patient's effort) Transfer Exam: Sit to stand Level of Preston: Moderate assist (50% patient's effort) (x 2 reps from bed and recliner chair) Physical/Nonphysical Assist: Maximal cues, Verbal Cues, Nonverbal cues (demo/gestures), 1 person + 1 person to manage equipment, Additional assist utilized for safety Assistive Device: Walker, rolling Transfer Exam: Stand to Sit Level of Preston: Moderate assist (50% patient's effort) Physical/Nonphysical Assist: Verbal Cues, Nonverbal cues (demo/gestures), 1 person + 1 person to manage equipment, Maximal cues, Additional assist utilized for safety Assistive Device: Walker, rolling Transfer Exam: Bed to Chair/Chair to Bed Level of Preston: Moderate assist (50% patient's effort) Physical/Nonphysical Assist: [...] Value Units Date/Time Blood Culture (Aerobic/Anaerobet Set) [[id number]] Collected: 06/14/25816 Order Status: Completed Specimen: Blood from Bicep, right Updated: 06/19/25 1001 Culture No growth at day 5 Respiratory Culture and Gram Stain [[id number]] (Abnormal) Collected: 06/14/25817 Order Status: Completed Specimen: [...] Abnormal Ventricular Rate 109 Atrial Rate 109 AK Interval 152 QRSD Interval 86 QT Interval 336 QTC Interval 452 P [place] -6 R [place] -1 T Wave [place] 5 Diagnosis Sinus tachycardia Diagnosis Poor R-wave [...] Center 06/24/2025 2:45 PM Dyllan Paul MD [facility] Mobility Orders Mobility Protocol: General - [...] removed if appropriate, prior to DC. Recommend PSYCHIATRIC ASSISTANT services for cognition, ongoing as pt is disoriented. Continue to monitor leukocytosis to ensure stability prior to dc. Consider UA vs ongoing workup andeval for possible HE Thank you for allowing us to participate in the care of your patient. We will continue to follow. Please page [phone] with any questions, or resident on-call if [...] Ken MD - 06/19/2025 8:30 AM EDT [facility] In[facility] Progress Note Primary Attending: Dyllan Paul MD Procedure(s): RALP with bilateral pelvic lymph node dissection requiring ex-lap 06/12/25 SUBJECTIVE: NAEON. The patient is currently on RA this morning and able to talk with the team. [facility] Patient not aware of why this happened. [...] Type: Bulb Size (Fr.): 10 Fr. Drain Columbine Size (mL): 100 mL Urethral Catheter Double-lumen;Non-latex [...] will defer further management to primary team(s). [facility] will sign off. Thank you for involving [...] sitting balance. Pt required dep A to hand assembler for puller over hips due to edema and impaired standingbalance, [...] Wound Orders (From admission, onward) Start Ordered 07/25/25 1747 Wound ostomy eval and treat Left [...] Assessment Red Margins Well-defined edges Cari-Wound Assessment [place] Shape linear, full thickness Wound Length (cm) [...] EDT Referral for acute rehab sent to [facility] via [facility], PM&R consult requested from MD Cai, [...] nare 06/13/25 1438 Left nare 4 GCS: [place] Coma Scale Score: 13 Review of Systems [...] Mobility Bed Mobility Exam: Scooting/Bridging Level of Preston: Contact guard (to scoot EOB in sitting) Physical/Nonphysical Assist: Verbal Cues, Nonverbal cues (demo/gestures), Additional assist utilized for safety, Minimal cues Assistive Device: Bed rails Bed Mobility Exam: Supine to Sit Level of Preston: Minimum assist (75% patient's effort) Physical/Nonphysical Assist: Verbal Cues, HOB elevated, Nonverbal cues (demo/gestures), Additional assist utilized for safety, Minimal cues Assistive Device: Bed rails Bed Mobility Exam: Sit to Supine Level of Preston: Moderate assist (50% patient's effort) Physical/Nonphysical Assist: [...] Transfer Exam: Sit to stand Level of Preston: Moderate assist (50% patient's effort) (regressing to maxA) Physical/Nonphysical Assist: Maximal cues, Verbal Cues, Nonverbal cues (demo/gestures), 1 person + 1 person to manage equipment, Additional assist utilized for safety Assistive Device: Walker, rolling Transfer Exam: Stand to Sit Level of Preston: Moderate assist (50% patient's effort) (regressing to maxA) Physical/Nonphysical Assist: Verbal Cues, Nonverbal cues (demo/gestures), 1 person + 1 person to manage equipment, Maximal cues, Additional assist utilized for safety Assistive Device: Walker, rolling Transfer Exam: Bed to Chair/Chair to Bed Level of Preston: Minimum assist (75% patient's effort) Physical/Nonphysical Assist: [...] Assessments Standardized Assessments: AMPAC 6-Clicks Mobility Assessment AMPA 6-Clicks Mobility Assessment [...] 3-5 steps with a railing?: A lot [facility] 6-Clicks Mobility Assessment Total : 17 [...] Ken MD - 06/18/2025 7:39 AM EDT [facility] Progress Note Primary Attending: Dyllan [...] Type: Bulb Size (Fr.): 10 Fr. Drain [place] Size (mL): 100 mL Urethral Catheter Double-lumen;Non-latex [...] Reasons Emotional support; Family support Referral From Customer Account Executive Initiated Spiritual Assessment Support Systems/ Spiritual Resources [place]; Family; Prayer Spiritual Needs Emotional support; Prayer; Spiritual support Spiritual Issues Chronic pain/ illness; Critical Illness Interventions Interventions Provided Emotional support; Family support; Prayer; Identify christian/ spiritual coping; Introduced Patient/Family to Customer Account Executive Services; Supportive Listening; Spiritual support Outcomes Patient Outcomes Demonstrates lower level of Anxious(ness); Is knowledgeable about Scheduler Conveyor Services; Appreciative of Customer Account Executive Support; Identifies spiritual or christian practices as helpful Follow-Up Last Date of Pastoral Care Contact 06/17/2025 Pastoral Care Comment An introductory visit with patient and family, spouse and son, and provided emotional support. Spouse spoke about patient condition and mentioned that he is doing a lot better today. Customer Account Executive provided a supportive presence, empathic listening, and [...] admitted 06/12/2025 for work-up of Prostate CA ([facility]/HCC). Problem List Active Hospital Problems Diagnosis Date Noted Metabolic encephalopathy 06/17/2025 Hypotension 06/13/2025 Hypocalcemia 06/13/2025 Prostate CA (CMS/HCC) 06/12/2025 On mechanically assisted ventilation ([facility]/HCC) 06/12/2025 Anemia 06/12/2025 Hyperlipidemia 06/12/2025 Leukocytosis 06/12/2025 Cirrhosis of liver ([facility]/HCC) 06/12/2025 Hyperbilirubinemia 06/12/2025 Esophageal varices 06/12/2025 Renal calculi 06/12/2025 Hypertension 06/12/2025 Alcohol use disorder 06/12/2025 SCC (squamous cell carcinoma), leg, left 06/12/2025 Electrolyte abnormality 06/12/2025 Severe obesity (BMI 35.0-39.9) with comorbidity ([facility]/HCC) 06/03/2025 Procedures 06/12/2025 Procedure(s): PROSTATECTOMY, RADICAL, [...] throughout; able to state brynn , Robby , and Lowe . Participants [...] admission Level of Mobility: Ambulatory- community Mobility Preston: Independent gait without device History of Falls: [...] (Difficult to assess due to cognitive deficits. Wood Borer strength 3/5, otherwise 2-/5 based on observation.) Sensation Light Touch: Right Upper Extremity: Intact Left Upper Extremity Examination LUE ROM Assessment LUE Assessment: Within Functional Limits (AAROM) Manual Muscle Testing - LUE Manual Muscle Testing - LUE: (Difficult to assess due to cognitive deficits. Wood Borer strength 3/5, otherwise 2-/5 based on observation.) [...] Mobility Bed Mobility Exam: Scooting/Bridging Level of Preston: Moderate assist (50% patient's effort) (progressing to CGA; to scoot anterior/posteriorly) Physical/Nonphysical Assist: Verbal Cues, Moderate cues, Nonverbal cues (demo/gestures), Additionalassist utilized for safety Assistive Device: Other (draw sheet) Bed Mobility Exam: Supine to Sit Level of Preston: Moderate assist (50% patient's effort) Physical/Nonphysical Assist: Verbal Cues, Maximal cues, HOB elevated, Nonverbal cues (demo/gestures), Additional assist utilized for safety Assistive Device: Other (Draw sheet) Transfers Transfer Interventions: PT provided verbal cues for hand placement on therapists elbows, sequencing, and safety with line management. Subsequent stand x 30s with minor lateral wavering without overt LOB. Transfer Exam: Sit to stand Level of Preston: Moderate assist (50% patient's effort) (x 2 reps from bed and recliner chair) Physical/Nonphysical Assist: Maximal cues, Verbal Cues, Nonverbal cues (demo/gestures), 1 person + 1 person to manage equipment, Additional assist utilized for safety Assistive Device: Walker, rolling Transfer Exam: Stand to Sit Level of Preston: Moderate assist (50% patient's effort) Physical/Nonphysical Assist: Verbal Cues, Nonverbal cues (demo/gestures), 1 person + 1 person to manage equipment, Maximal cues, Additional assist utilized for safety Assistive Device: Walker, rolling Transfer Exam: Bed to Chair/Chair to Bed Level of Preston: Moderate assist (50% patient's effort) Physical/Nonphysical Assist: [...] edema. Standardized Assessments Standardized Assessments Standardized Assessments: AMPA 6-Clicks Mobility Assessment [facility] 6-Clicks Mobility Assessment Difficulty patient has [...] climbing 3-5 steps with a railing?: Unable [facility] 6-Clicks Mobility Assessment Total : 15 [...] admitted 06/12/2025 for work-up of Prostate CA ([facility]/HCC). Problem List Active Hospital Problems Diagnosis Date Noted Metabolic encephalopathy 06/17/2025 Hypotension 06/13/2025 Hypocalcemia 06/13/2025 Prostate CA (CMS/HCC) 06/12/2025 On mechanically assisted ventilation ([facility]/HCC) 06/12/2025 Anemia 06/12/2025 Hyperlipidemia 06/12/2025 Leukocytosis 06/12/2025 Cirrhosis of liver ([facility]/HCC) 06/12/2025 Hyperbilirubinemia 06/12/2025 Esophageal varices 06/12/2025 Renal calculi 06/12/2025 Hypertension 06/12/2025 Alcohol use disorder 06/12/2025 SCC (squamous cell carcinoma), leg, left 06/12/2025 Electrolyte abnormality 06/12/2025 Severe obesity (BMI 35.0-39.9) with comorbidity ([facility]/HCC) 06/03/2025 Procedures 06/12/2025 Procedure(s): PROSTATECTOMY, RADICAL, [...] admission Level of Mobility: Ambulatory- community Mobility Preston: Independent gait without device History of Falls: [...] (Difficult to assess due to cognitive deficits. Wood Borer strength 3/5, otherwise 2-/5 based on observation.) Sensation Light Touch: Right Upper Extremity: Intact Left Upper Extremity Examination LUE ROM Assessment LUE Assessment: Within Functional Limits (AAROM) Manual Muscle Testing - LUE: (Difficult to assess due to cognitive deficits. Wood Borer strength 3/5, otherwise 2-/5 based on observation.) [...] Mobility Bed Mobility Exam: Scooting/Bridging Level of Preston: Moderate assist (50% patient's effort) (progressing to CGA; to scoot anterior/posteriorly) Physical/Nonphysical Assist: Verbal Cues, Moderate cues, Nonverbal cues (demo/gestures), Additionalassist utilized for safety Bed Mobility Exam: Supine to Sit Level of Preston: Moderate assist (50% patient's effort) Physical/Nonphysical Assist: Verbal Cues, Maximal cues, HOB elevated, Nonverbal cues (demo/gestures), Additional assist utilized for safety Transfers Transfer Exam: Sit to stand Level of Preston: Moderate assist (50% patient's effort) (x 2 reps from bed and recliner chair) Physical/Nonphysical Assist: Maximal cues, Verbal Cues, Nonverbal cues (demo/gestures), 1 person + 1 person to manage equipment, Additional assist utilized for safety Assistive Device: Walker, rolling Transfer Exam: Stand to Sit Level of Preston: Moderate assist (50% patient's effort) Physical/Nonphysical Assist: Verbal Cues, Nonverbal cues (demo/gestures), 1 person + 1 person to manage equipment, Maximal cues, Additional assist utilized for safety Assistive Device: Walker, rolling Transfer Exam: Bed to Chair/Chair to Bed Level of Preston: Moderate assist (50% patient's effort) Physical/Nonphysical Assist: [...] off bed to don socks. Standardized Assessments [facility] 6-Click Daily Activities Help from Other: Don/Doff Regular Lower Body Clothings: Total Help From Other: Bathing: Total Help From Other: Toileting: Total Help From Other: Don/Doff Upper Body Clothings: A lot Help From Other: Grooming: A lot Help From Other: Eating Meals: Total (NPO, DHT) [facility] 6 Click - Daily Activities Score: 8 [...] Ken MD - 06/17/2025 11:35 AM EDT [facility] Progress Note Primary Attending: Dyllan [...] Type: Bulb Size (Fr.): 10 Fr. Drain [place] Size (mL): 100 mL Urethral Catheter Double-lumen;Non-latex [...] Note Eber Lowe 70 y.o. male CSN: [id number] Room/Bed 239/239A Nutrition evaluation type: follow-up Reason [...] 35.21 Weight Evaluation: Obese-Class 2 (BMI 35-39.9) [place] Body Weight (kg): 72.7 Percent [place] Body Weight: 150 Adjusted Body Weight (kg): 82 Estimated Needs: Kcal/ K - 20 Kcal Provided: 1635 - 2180 Kcal Needs Based On: Current weight Gm Protein/ Kg : 1.5 - 2.0 Protein Provided: 109 - 145 Protein Needs Based On: [place] weight Metabolic Cart Study Results: Current Nutrition [...] Restrictive Safety Strategies Flowsheets (Taken 06/17/2025 08) Dosier Operator Protection: IV pole/bag removed from visual field [...] nare 06/13/25 1438 Left nare 3 GCS: [place] Coma Scale Score: 11 Review [...] and Plan: Assessment & Plan Prostate CA ([facility]/HCC) Present on Admission: Yes 06/12: robot-assisted radical [...] Alcohol use disorder Present on Admission: Yes 5/9: Reports he is abstinent for 3-4months, [...] Progressing Flowsheets Taken 06/16/2025 2133 by Nir Murcia RN Plan of Care [...] Note Eber Lowe 70 y.o. male CSN: [id number] Admission: 06/12/2025 10:20 AM Primary Problem: Prostate CA (CMS/HCC) Nurseryman Assistant reviewed chart and spoke with patient's spouse-Javon [phone] to complete this Initial Case Management Assessment. PCP: Murray Prajapati MD Emergency Contact: Extended Emergency Contact Information Primary Emergency Contact: MARILUZJAVON Mobile Relation: Spouse Disability Aide needed? No Insurance: Primary Visit Coverage Payer Plan Sponsor Code Group Number Group Name DANIKA GARNICA [facility] [id number] Primary Visit Coverage Subscriber Subscriber ID Subscriber Name Subscriber SSN Subscriber Address [id number] JAVON LOWE [id number] [place] [address] Patient information: Primary Caregiver: Self Support System: Immediate family Daily Living Activities: Functional Status: Independent Living Arrangements: Spouse/Significant other Type of Residence: Private residence, Single Level [address] [place] [address] Current DME: Equipment Currently Used at Home: none Income Information: Income Source: Retired Housing Circumstances-Z Codes: Patient Referred to: Anticipated Discharge Date: 06/20/25 Patient's Discharge Goal: Patient/Family Anticipates Transition to: home Assistance Available at Discharge: spouse Discharge Transport: spouse Follow Up Transport: spouse Home Health / Home Infusion / Outpatient Dialysis Services: None reported. Living Will/Advance Directive/Power of Database Dba /Guardian: None reported. Additional Comments: CM introduced herself and explain its role. CM confirmed pt's home address and contact information.Pt lives with spouse in a 1 1/2 level home, doesn't use any DME equipment or have any HH services. Per pt's spouse, she will provide assistance as needed as well as transportation. In??s KELLY Mistry, manager credit Social Drivers of Health Food Insecurity: No [...] Social Connections: Low Risk (12/08/2023) Received from [facility] ([place], [place], [place], [place]) Family and Community [...] Post-Procedure Diagnose(s): Hypocalcemia; Renal calculi; Prostate CA (CMS/[facility]); Electrolyte abnormality; SCC (squamous cell carcinoma), leg, left; Severe obesity (BMI 35.0-39.9) with comorbidity (CMS/HCC); Other secondary hypertension; On mechanically assisted ventilation (CMS/[facility]); Alcohol use diso rder; Leukocytosis, unspecified type 06/16/25 Eber Lowe Past 24 hours: PM: adjusted propofol parameters. AM: Off propofol this AM. Tolerating PS this AM 8/5 40%, however extremely lethargic, minimal movement of [...] rounds. JENNIFER Lee * Hospital Course - [facility] - 06/16/2025 8:04 AM EDT Eber Lowe is a 70 y.o. male with PMH unfavorable intermediate risk prostate cancer, GG3 diffusely on the left, PSA 4.7 who presented to [facility] ED for planned surgical intervention. They [...] Possible history of SBP Esophageal varices -EGD 9/24: gr1 ev; moderate PHG no focal liver [...] Ken MD - 06/16/2025 7:49 AM EDT [facility] Inpatient Progress Note Primary Attending: Dyllan [...] Type: Bulb Size (Fr.): 10 Fr. Drain Columb[place] Size (mL): 100 mL Urethral Catheter Double-lumen;Non-latex [...] -daily AM labs -agree with abdominal binder [facility] -urology will closely follow -c/w scrotal elevation [...] Shayna Crawford - 06/15/2025 10:59 AM EDT [facility] Inpatient Progress Note Primary Attending: Dyllan [...] Type: Bulb Size (Fr.): 10 Fr. Drain Columbine Size (mL): 100 mL Urethral Catheter Double-lumen;Non-latex [...] -daily AM labs -agree with abdominal binder -[facility] -urology will closely follow -c/w scrotal elevation [...] 06/14/2025 4:29 AM Final report signed by Brain Thompson MD on 06/14/2025 4:30 AM Reviewed [...] PEEP (cmH2O): 10 S VT: 500 mL AK SUP: 8 cm H20 Insp Time (sec): 0.9 sec Vent Mode: PS/CPAP FiO2 (%): 80 % S RR: 14 S VT: 500 mL AK SUP: 8 cm H20 MAP (cm H2O): [...] Ken MD - 06/14/2025 11:56 AM EDT [facility] Inpatient Progress Note Primary Attending: Dyllan [...] Type: Bulb Size (Fr.): 10 Fr. Drain Columbine Size (mL): 100 mL Urethral Catheter Double-lumen;Non-latex [...] -daily AM labs -agree with abdominal binder -[facility] -urology will closely follow Ariadna Vegas MD [...] Note Eber Lowe 70 y.o. male CSN: [id number] Room/Bed 239/239A Nutrition evaluation type: follow-up Reason [...] 35.43 Weight Evaluation: Obese-Class 2 (BMI 35-39.9) [place] Body Weight (kg): 72.7 Percent [place] Body Weight: 150 Adjusted Body Weight (kg): 82 Estimated Needs: Kcal/ K - 20 Kcal Provided: 1635 - 2180 Kcal Needs Based On: Current weight Gm Protein/ Kg : 1.5 - 2.0 Protein Provided: 109 - 145 Protein Needs Based On: [place] weight Metabolic Cart Study Results: Current Nutrition [...] lab trends Acuity Level: 5 Lillian Martin, SHIRA, LD Weekend Dietitian [1] Past Medical History: [...] 70 y.o. male admitted for Prostate CA ([facility]). Pharmacy was consulted for management [...] PharmD OR [facility] Available via [employer] Secure Chat * Care Plan - Belkys [...] Problem(s): Severe obesity (BMI 35.0-39.9) with comorbidity (CMS/[facility]) Complicates all aspects of care. [...] continue to decrease FiO2 as able. GCS: [place] Coma Scale Score: 10 Review of Systems [...] services were present on rounds. 06/13/25 Eber Giovanna Lowe DELON Lowe is a 70 y.o. male who [...] meds, 500ml bolus. Edited by: Roshan Haas, MINES SAFETY ENGINEER, DNP at 06/13/2025 1202 Lines/Drains/Tubes: Patient Lines/Drains/Airways [...] 06/12/25 2125 Radial less than 1 GCS: [place] Coma Scale Score: 10 Review of Systems [...] ear normal. Nose: Nose normal. Mouth/Throat: Lips: [place]. Mouth: Mucous membranes are moist. Pharynx: Oropharynx [...] aroused. Results Review {Vanishing Link Review Results :[id number] I have reviewed the latest lab and [...] Note Eber Lowe 70 y.o. male CSN: [id number] Room/Bed 239/239A Nutrition evaluation type: assessment Reason for evaluation: Vent Hospital course: 70 y.o male admitted with [...] 35.43 Weight Evaluation: Obese-Class 2 (BMI 35-39.9) [place] Body Weight (kg): 72.7 Percent [place] Body Weight: 150 Adjusted Body Weight (kg): 82 Estimated Needs: Kcal/ K - 20 Kcal Provided: 1635 - 2180 Kcal Needs Based On: Current weight Gm Protein/ Kg : 1.5 - 2.0 Protein Provided: 109 - 145 Protein Needs Based On: [place] weight Metabolic Cart Study Results: Current Nutrition [...] labs, and elytes Acuity Level: 5 Corry L Back, RD [1] Past Medical History: Diagnosis Date [...] Galicia MD - 06/13/2025 9:00 AM EDT [facility] Inpatient Progress Note Primary Attending: Dyllan [...] Type: Bulb Size (Fr.): 10 Fr. Drain Columbine Size (mL): 100 mL Urethral Catheter Double-lumen;Non-latex [...] -daily AM labs -agree with abdominal binder -[facility] -urology will closely follow Gregory Galicia MD Cosigned by Dyllan Paul MD at 06/15/2025 10:37 AM EDT Associated attestation - Dyllan Paul MD - 06/15/2025 10:37 AM EDT I saw and evaluated the patient with the resident/fellow. I discussed the case with the resident/fellow and agree with the findings and plan as documented. * Clinician Note - Paul Oneil 06/13/2025 8:58 AM EDT Physical Therapy Attempt [...] to initiate IA/SDOH. In??s A. KELLY Huerta, manager credit * Procedures - Tati Pedroza RN - [...] Problem(s): Severe obesity (BMI 35.0-39.9) with comorbidity ([facility]) Complicates all aspects of care. * Assessment & Plan Note - Raymond Katz APRN - 06/12/2025 10:29 PM EDT Associated Problem(s): Prostate CA (CMS/HCC) (Resolved 07/31/2025) 06/12: robot-assisted radical prostatectomy, complicated by severed umbilical vein, 1.3L blood loss Management per primary * Assessment & Plan Note - Raymond Katz APRN - 06/12/2025 10:29 PM EDT Associated Problem(s): On mechanically assisted ventilation ([facility]) (Resolved 06/18/2025) Intubated for procedure [...] mid 90s on 100% FI02, NSR 70s. [facility] consulted d/t desaturation event and [...] Past Medical History: Diagnosis Date ??? Cancer ([facility]/HCC) january 26, 2025 ??? Cirrhosis ([facility]/HCC) 2021 ??? History of methicillin resistant Staphylococcus [...] by mouth daily. Yes Albert Salinas MD qmnlfsoessqd-fpes-cngrowzw-folic acid (Centrum) chewable tablet Chew 1 tablet [...] ear normal. Nose: Nose normal. Mouth/Throat: Lips: [place]. Mouth: Mucous membranes are moist. Pharynx: Oropharynx [...] are consistent with and integrated into the [place] [employer] Liver Diseases [...] PM EDT Operative Note Date: 06/12/25 Location: [facility] Name: Eber Lowe, : 1955, Diagnoses: Pre-op Diagnosis Prostate CA (CMS/HCC) Post-op Diagnosis Prostate CA (CMS/HCC) Procedure(s): Robotic assisted laparoscopic radical prostatectomy Robotic assisted laparoscopic bilateral pelvic lymph node dissection Laparotomy with ligation of dilated umbilical veins Attending Surgeon(s): * Dyllan Paul - Primary Flipping Machine Operator(s): * Adam Earl MD - Resident - Assisting * Gregory Galicia MD - Resident - Assisting Anesthesia: General ASA: III Blood Administration: Blood Product Administration History Product Date Volume Status Transfuse RBC RBC 06/12/2025 350 mL Completed 06/12/252127 RBC 06/12/2025 350 mL Completed 06/12/252127 Estimated Blood Loss: 1300 mL Drains: Closed/Suction Drain 1 RUQ Bulb 10 Fr. (Active) Site Description Clean;Dry 06/15/25 08 Dressing Status Clean;Dry;Intact 06/15/25 08 Drainage Appearance Serosanguineous 06/15/25 08 Status To bulb suction 06/15/25 08 Output (mL) 120 mL 06/15/25 1000 Urethral [...] who is having surgery for Prostate CA ([facility]). Narrative: The patient is brought [...] points were confirmed we placed an 18 [place] catheter into the bladder and the bladder [...] run as well with a new 20 [place] catheter being placed into the bladder before [...] 06/12/2025 3:20 PM EDT Date: 06/12/25 Location: [facility] Name: Eber Lowe, : 1955, Diagnoses: Pre-op Diagnosis Prostate CA (CMS/HCC) Post-op Diagnosis Prostate CA (CMS/HCC) Procedure(s): Robotic-assisted laparoscopic radical prostatectomy Bilateral pelvic lymph node dissection Attending Surgeon(s): * Dyllan Paul - Primary Flipping Machine Operator(s): * Adam Earl MD - Resident - [...] from the original note were not included. [facility] History and Physical 06/12/25 HPI: Eber [...] % shampoo Melatonin 10 mg, Nightly PRN rdvvxmbpqnlc-wyux-cpsfskmn-folic acid (Centrum) chewable tablet 1 tablet, Daily [...] since 05/13/25 Location Start Date End Date [place] ([facility]) 06/01/25 06/02/25 ROS: 14 point review [...] Description 08/22/2025 9:00 AM EDT Office Visit [facility] Nephrology, Bone & Mineral Metabolism [address], [address] [place] [id number] Kathia Watkins MD [address] [place] [address] 08/28/2025 8:50 AM EDT Hospital Encounter [facility] [address] [place] [address] Dyllan Paul MD [address] [place] [phone] 08/28/2025 8:50 AM EDT Anesthesia Event [facility] [address] [place] [address] Paige Starkey, TORREY [address] [place] [address] 08/28/2025 8:50 AM EDT - 08/28/2025 10:35 AM EDT Surgery [facility] [address] [place] [address] Dyllan Paul MD [address] [facility] [address] [place] [address] URETEROSCOPY, WITH LASER LITHOTRIPSY [68305 (CPT )] 10/28/2025 8:00 AM EST [facility] Visit [facility] [address] [place] [address] Pavan Aldrich MD [address] [place] [address] Scheduled Procedures Name Priority Associated Diagnoses Date/Ti me URETEROSCOPY, WITH LASER LITHOTRIPSY Ureteral stone 08/28/2025 8:50 AM EDT Scheduled Referrals Name Type Priority Associated Diagnoses Orde r Schedule Discharge Ambulatory referral to [facility] Outpatient Referral Routine Prostate CA (CMS/HCC) 1 Occurrences starting 06/23/2025 until 12/25/2026 Discharge Ambulatory referral to [facility] Physical Therapy Outpatient Referral Routine H/O prostatectomy Expected: 06/25/2025 (Approximate), Expires: 12/27/2026 Discharge Ambulatory referral to [facility] Occupational Therapy Outpatient Referral Routine H/O [...] UNSOLICITED RESULTS Routine 06/18/2025 12:29 PM EDT [facility], E/M 30-74 MINUTES Routine 06/18/2025 [...] AMMONIA, PLASMA Routine 06/17/2025 8:55 AM EDT [facility], E/M 30-74 MINUTES Routine 06/17/2025 8:36 AM EDT Prostate CA (CMS/HCC) Alcohol use disorder On mechanically assisted ventilation (CMS/[facility]) Leukocytosis, unspecified type Hyperbilirubinemi a [...] UNSOLICITED RESULTS Routine 06/16/2025 11:40 AM EDT [facility] CRITICAL CARE, E/M 30-74 MINUTES Routine 06/16/2025 10:30 AM EDT Prostate CA ([facility]) Alcohol use disorder On mechanically assisted ventilation ([facility]) Leukocytosis, unspecified type Hypocalcemia Electrolyte abnormality Severe obesity (BMI 35.0-39.9) with comorbidity ([facility]) SCC (squamous cell carcinoma), leg, [...] RANDOM, PLASMA Routine 06/15/2025 11:38 AM EDT [facility], E/M 30-74 MINUTES Routine 06/15/2025 [...] PANEL, ARTERIAL Timed 2024 12:09 PM EDT [facility], E/M 30-74 MINUTES Routine 06/14/2025 [...] PANEL, ARTERIAL Timed 2024 11:30 AM EDT [facility]ICAL [facility], ADDL 30 MIN Routine 06/13/2025 10:48 AM EDT Prostate CA (CMS/HCC) Alcohol use disorder On mechanically assisted ventilation (CMS/[facility]) Leukocytosis, unspecified type Hypotension due to hypovolemia [...] PANEL, ARTERIAL Routine 2024 10:47 PM EDT [facility] CRITICAL C[facility], ADDL 30 MIN Routine 06/12/2025 10:22 PM EDT Prostate CA (CMS/HCC) [facility] CRITICAL CARE, ADDL 30 MIN Routine 06/12/2025 10:22 PM EDT Prostate CA (CMS/HCC) [facility] CRITICAL CARE, ADDL 30 MIN Routine 06/12/2025 [...] 06/12/20 6:07 PM EDT Prostate CA (CMS/HCC) [place] LAP,PROSTATECTOMY,RADICAL ,W/NERVE SPARE,INCL ROBOTIC 06/12/2025 2:26 PM [...] following split bolus administration of IV contrast, [id number], 150 mL. Reformatted images in the coronal [...] in the right mid ureter (series 3 [id number]). Punctate bilateral nonobstructing renal calculi are also [...] Mass 394 mg 06/28/2025 4:02 PM EDT [facility] Calculi Description See Note 06/28/2025 4:02 PM EDT [facility] Composition See Note 06/28/2025 4:02 PM EDT [facility]) Calculus Non-blood Collection / Unknown 06/25/2025 7:00 AM EDT 06/25/2025 8:10 AM EDT Narrative [employer] [facility] ([facility]) - 06/28/2025 4:02 PM EDT Specimen consists [...] composition determined by FTIR analysis. Performed By: [facility] [address] [place] [address] E Mail System Administrator: Sotero Banuelos MD, PhD CLIA Number: [id number] us Dyllan Paul MD LAB REF LAB BLOOD AND FLUID O RD Final Result [facility] ([facility]) [address] [place] [address] * (ABNORMAL) Hemogram (CBC) (06/25/2025 5:50 AM EDT) [facility] WBC Count 15.32(H) 3.70 - 10.30 10*3/uL LAB HEMATOLOGY METHOD 06/25/2025 6:59 AM EDT [facility] RBC Count 3.44(L) 4.60 - 6.10 10*6/uL LAB HEMATOLOGY METHOD 06/25/2025 6:59 AM EDT [facility] HGB 11.2(L) 13.7 - 17.5 g/dL LAB HEMATOLOGY METHOD 06/25/2025 6:59 AM EDT [facility] HCT 32.7(L) 40.0 - 51.0 % LAB HEMATOLOGY METHOD 06/25/2025 6:59 AM EDT [facility] Platelet Count 114(L) 155 - 369 10*3/uL LAB HEMATOLOGY METHOD 06/25/2025 6:59 AM EDT [facility] MCV 95 79 - 98 fL LAB HEMATOLOGY METHOD 06/25/2025 6:59 AM EDT [facility] MCH 32.6(H) 26.0 - 32.0 pg LAB HEMATOLOGY METHOD 06/25/2025 6:59 AM EDT [facility] MCHC 34.3 30.7 - 35.5 g/dL LAB HEMATOLOGY METHOD 06/25/2025 6:59 AM EDT [facility] RDW 16.7(H) 11.5 - 14.5 % LAB HEMATOLOGY METHOD 06/25/2025 6:59 AM EDT [facility] MPV 11.7 8.8 - 12.5 fL LAB HEMATOLOGY METHOD 06/25/2025 6:59 AM EDT [facility] nRBC 0.0 <=0.0 per 100 WBCs LAB HEMATOLOGY METHOD 06/25/2025 6:59 AM EDT [facility] Blood Venous blood specimen / Unknown Venipuncture / Unknown 06/25/2025 5:50 AM EDT 06/25/2025 6:48 AM EDT us Dyllan Paul MD LAB BLOOD ORDERABLES Final Re sult [facility] [address] [place] [address] * (ABNORMAL) Comprehensive metabolic panel (06/25/2025 5:50 AM EDT) Glucose, Plasma 84 74 - 99 mg/dL 06/25/2025 7:20 AM EDT [facility] BUN, Plasma 30(H) 8 - 23 mg/dL 06/25/2025 7:20 AM EDT [facility] Creatinine, Plasma 1.14 0.70 - 1.20 mg/dL 06/25/2025 7:20 AM EDT [facility] BUN/Creatinine Ratio 26 06/25/2025 7:20 AM EDT [facility] Sodium, Plasma 134(L) 136 - 145 mmol/L 06/25/2025 7:20 AM EDT [facility] Potassium, Plasma 3.4(L) 3.6 - 4.9 mmol/L 06/25/2025 7:20 AM EDT [facility] Chloride, Plasma 100 97 - 107 mmol/L 06/25/2025 7:20 AM EDT [facility] CO2, Plasma 26 22 - 29 mmol/L 06/25/2025 7:20 AM EDT [facility] Anion Gap 8 6 - 16 mmol/L 06/25/2025 7:20 AM EDT [facility] Total Calcium, Plasma 8.1(L) 8.9 - 10.2 mg/dL 06/25/2025 7:20 AM EDT [facility] Total Protein 4.5(L) 6.3 - 7.9 g/dL 06/25/2025 7:20 AM EDT [facility] Albumin, Plasma 2.4(L) 3.5 - 5.2 g/dL 06/25/2025 7:20 AM EDT [facility] AST, Plasma 77(H) 10 - 50 U/L 06/25/2025 7:20 AM EDT [facility] ALT, Plasma 45 10 - 50 U/L 06/25/2025 7:20 AM EDT [facility] Alkaline Phosphatase, Plasma 129(H) 40 - 115 U/L 06/25/2025 7:20 AM EDT [facility] Total Bilirubin, Plasma 1.7(H) 0.2 - 1.1 mg/dL 06/25/2025 7:20 AM EDT [facility] eGFRcr 69.2 mL/min/1.7 3m*2 06/25/2025 7:20 AM EDT [facility] Comment:Reported eGFRcr in m L/min/1.73m2 is based the CKD-EPI 2020 equation that does not use a race coefficient. Blood Venous blood specimen / Unknown Venipuncture / Unknown 06/25/2025 5:50 AM EDT 06/25/2025 6:48 AM EDT Dyllan Paul MD LAB BLOOD ORDERABLES Final Re sult Performing Organization Address City/[facility]/ZIP Co de Phone Number [facility] [address] [place] [address] * Phosphorus (06/25/2025 5:50 AM EDT) Phosphorus, Plasma 3.5 2.5 - 4.5 mg/dL 06/25/2025 7:20 AM EDT [facility] Blood Venous blood specimen / Unknown Venipuncture / Unknown 06/25/2025 5:50 AM EDT 06/25/2025 6:48 AM EDT us Dyllan Paul MD LAB BLOOD ORDERABLES Final Re sult [facility] [address] [place] [address] * Magnesium (06/25/2025 5:50 AM EDT) Magnesium, Plasma 2.2 1.9 - 2.4 mg/dL 06/25/2025 7:20 AM EDT [facility] Blood Venous blood specimen / Unknown Venipuncture / Unknown 06/25/2025 5:50 AM EDT 06/25/2025 6:48 AM EDT us Dyllan Paul MD LAB BLOOD ORDERABLES Final Re sult [facility] [address] [place] [address] * VAS US Venous Duplex Lower Extremity [...] is completed (06/24/2025 12:35 PM EDT) Pathologist [facility] Potassium, Plasma 3.6 3.6 - 4.9 mmol/L 06/24/2025 1:21 PM EDT [facility] Blood Venous blood specimen / Unknown Venipuncture / Unknown 06/24/2025 12:35 PM EDT 06/24/2025 12:58 PM EDT us Camden Hilario MD LAB BLOOD ORDERABLES Final Result [facility] [address] [place] [address] * Peripheral blood smear, pathologist interpretation (06/24/2025 2:14 AM EDT) Pathologist [facility] Clinical Diagnosis, Peripheral Smear Leukocytosis, recent surgery (prostatectomy for prostate cancer), history of cirrhosis LAB HEMATOLOGY METHOD 06/24/2025 3:21 PM EDT [facility] Interpretation , Peripheral Smear Moderate leukocytosis with neutrophilia, left shift and toxic granulations. Few atypical small lymphocytes with mature condensed chromatin. Mild anemia with anisocytosis. Mild thrombocytopeni a. See comment 06/24/2025 3:21 PM EDT [facility] Pathologist Signature, Peripheral Smear 06/24/2025 3:21 PM EDT [facility] Comment:Reviewed by: Sue Stapleton MD Blood Venous blood specimen / Unknown Venipuncture / Unknown 06/24/2025 2:14 AM EDT 06/24/2025 2:19 AM EDT Narrative [facility] - 06/24/2025 3:21 PM EDT The lymphocyte morphology is concerning for chronic lymphoproliferative disorder. A flow cytometry immunophenotyping is suggested, if clinically indicated. us Dyllan Paul MD LAB PATHOLOGY ORDERABLES Francia lezama Result [facility] [address] [place] [address] * (ABNORMAL) CBC and differential (06/24/2025 2:14 AM EDT) WBC Count 20.07(H) 3.70 - 10.30 10*3/uL LAB HEMATOLOGY METHOD 06/24/2025 3:40 AM EDT [facility] RBC Count 3.59(L) 4.60 - 6.10 10*6/uL LAB HEMATOLOGY METHOD 06/24/2025 3:40 AM EDT [facility] HGB 11.8(L) 13.7 - 17.5 g/dL LAB HEMATOLOGY METHOD 06/24/2025 3:40 AM EDT [facility] HCT 34.1(L) 40.0 - 51.0 % LAB HEMATOLOGY METHOD 06/24/2025 3:40 AM EDT [facility] Platelet Count 128(L) 155 - 369 10*3/uL LAB HEMATOLOGY METHOD 06/24/2025 3:40 AM EDT [facility] MCV 95 79 - 98 fL LAB HEMATOLOGY METHOD 06/24/2025 3:40 AM EDT [facility] MCH 32.9(H) 26.0 - 32.0 pg LAB HEMATOLOGY METHOD 06/24/2025 3:40 AM EDT [facility] MCHC 34.6 30.7 - 35.5 g/dL LAB HEMATOLOGY METHOD 06/24/2025 3:40 AM EDT [facility] RDW 16.2(H) 11.5 - 14.5 % LAB HEMATOLOGY METHOD 06/24/2025 3:40 AM EDT [facility] MPV 11.2 8.8 - 12.5 fL LAB HEMATOLOGY METHOD 06/24/2025 3:40 AM EDT [facility] nRBC 0.0 <=0.0 per 100 WBCs LAB HEMATOLOGY METHOD 06/24/2025 3:40 AM EDT [facility] Differential Type Automated LAB HEMATOLOGY METHOD 06/24/2025 3:40 AM EDT [facility] Neutrophils % 45 % LAB HEMATOLOGY METHOD 06/24/2025 3:40 AM EDT [facility] Lymphocytes % 39 % LAB HEMATOLOGY METHOD 06/24/2025 3:40 AM EDT [facility] Monocytes % 9 % LAB HEMATOLOGY METHOD 06/24/2025 3:40 AM EDT [facility] Eosinophils % 5 % LAB HEMATOLOGY METHOD 06/24/2025 3:40 AM EDT [facility] Basophils % 1 % LAB HEMATOLOGY METHOD 06/24/2025 3:40 AM EDT [facility] Immature Granulocytes % 1 % LAB HEMATOLOGY METHOD 06/24/2025 3:40 AM EDT [facility] Neutrophils Absolute 9.32(H) 1.60 - 6.10 10*3/uL LAB HEMATOLOGY METHOD 06/24/2025 3:40 AM EDT [facility] Lymphocytes Absolute 7.73(H) 1.20 - 3.90 10*3/uL LAB HEMATOLOGY METHOD 06/24/2025 3:40 AM EDT [facility] Monocytes Absolute 1.80(H) 0.30 - 0.90 10*3/uL LAB HEMATOLOGY METHOD 06/24/2025 3:40 AM EDT [facility] Eosinophils Absolute 0.90(H) 0.00 - 0.50 10*3/uL LAB HEMATOLOGY METHOD 06/24/2025 3:40 AM EDT [facility] Basophils Absolute 0.17(H) 0.00 - 0.10 10*3/uL LAB HEMATOLOGY METHOD 06/24/2025 3:40 AM EDT [facility] Immature Granulocytes Absolute 0.15(H) 0.00 - 0.06 10*3/uL LAB HEMATOLOGY METHOD 06/24/2025 3:40 AM EDT [facility] [facility] Blood Venous blood specimen / Unknown Venipuncture / Unknown 06/24/2025 2:14 AM EDT 06/24/2025 2:19 AM EDT Narrative [facility] - 06/24/2025 3:40 AM EDT Therapeutic decision making should be based on absolute values, rather than percentages. us Dyllan Paul MD LAB BLOOD ORDERABLES Final Re sult [facility] [address] [place] [address] * (ABNORMAL) Comprehensive metabolic panel (06/24/2025 2:14 AM EDT) Glucose, Plasma 105(H) 74 - 99 mg/dL 06/24/2025 2:46 AM EDT [facility] BUN, Plasma 33(H) 8 - 23 mg/dL 06/24/2025 2:46 AM EDT [facility] Creatinine, Plasma 1.20 0.70 - 1.20 mg/dL 06/24/2025 2:46 AM EDT [facility] BUN/Creatinine Ratio 28 06/24/2025 2:46 AM EDT [facility] Sodium, Plasma 135(L) 136 - 145 mmol/L 06/24/2025 2:46 AM EDT [facility] Potassium, Plasma 3.3(L) 3.6 - 4.9 mmol/L 06/24/2025 2:46 AM EDT [facility] Chloride, Plasma 101 97 - 107 mmol/L 06/24/2025 2:46 AM EDT [facility] CO2, Plasma 24 22 - 29 mmol/L 06/24/2025 2:46 AM EDT [facility] Anion Gap 10 6 - 16 mmol/L 06/24/2025 2:46 AM EDT [facility] Total Calcium, Plasma 8.3(L) 8.9 - 10.2 mg/dL 06/24/2025 2:46 AM EDT [facility] Total Protein 4.9(L) 6.3 - 7.9 g/dL 06/24/2025 2:46 AM EDT [facility] Albumin, Plasma 2.5(L) 3.5 - 5.2 g/dL 06/24/2025 2:46 AM EDT [facility] AST, Plasma 82(H) 10 - 50 U/L 06/24/2025 2:46 AM EDT [facility] Comment:Hemolyzed, result ma y be falsely increased. ALT, Plasma 50 10 - 50 U/L 06/24/2025 2:46 AM EDT [facility] Alkaline Phosphatase, Plasma 142(H) 40 - 115 U/L 06/24/2025 2:46 AM EDT [facility] Total Bilirubin, Plasma 1.7(H) 0.2 - 1.1 mg/dL 06/24/2025 2:46 AM EDT [facility] eGFRcr 65.1 mL/min/1.7 3m*2 06/24/2025 2:46 AM EDT [facility] Comment:Reported eGFRcr in m L/min/1.73m2 is based the CKD-EPI 2020 equation that does not use a race coefficient. Blood Venous blood specimen / Unknown Venipuncture / Unknown 06/24/2025 2:14 AM EDT 06/24/2025 2:19 AM EDT us Dyllan Paul MD LAB BLOOD ORDERABLES Final Re sult Performing Organization Address City/[facility]/ZIP Co de Phone Number [facility] [address] [place] [address] * Phosphorus (06/24/2025 2:14 AM EDT) Phosphorus, Plasma 3.4 2.5 - 4.5 mg/dL 06/24/2025 2:46 AM EDT [facility] Blood Venous blood specimen / Unknown Venipuncture / Unknown 06/24/2025 2:14 AM EDT 06/24/2025 2:19 AM EDT us Dyllan Paul MD LAB BLOOD ORDERABLES Final Re sult [facility] [address] [place] [address] * Magnesium (06/24/2025 2:14 AM EDT) Pathologist [facility] Magnesium, Plasma 2.2 1.9 - 2.4 mg/dL 06/24/2025 2:46 AM EDT [facility] Blood Venous blood specimen / Unknown Venipuncture / Unknown 06/24/2025 2:14 AM EDT 06/24/2025 2:19 AM EDT Dyllan Paul MD LAB BLOOD ORDERABLES Final Re sult Performing Organization Address [facility]/ZIP Co de Phone Number [facility] [address] [place] [address] * Clostridiodes (Clostridium) difficile PCR (06/23/2025 9:17 AM EDT) [facility] C difficile PCR toxin B gene DNA Result Not Detected Not Detected 06/23/2025 11:44 AM EDT [facility] Stool Rectum structure / Unknown Non-blood Collection / Unknown 06/23/2025 9:17 AM EDT 06/23/2025 10:27 AM EDT Narrative [facility] - 06/23/2025 11:44 AM EDT This [...] OR DERABLES Final Result Performing Organization Address City/[facility]/ZIP Co de Phone Number [facility] [address] [place] [address] * (ABNORMAL) Comprehensive metabolic panel (06/23/2025 3:41 AM EDT) Pathologist [facility] Glucose, Plasma 110(H) 74 - 99 mg/dL 06/23/2025 4:31 AM EDT [facility] BUN, Plasma 35(H) 8 - 23 mg/dL 06/23/2025 4:31 AM EDT [facility] Creatinine, Plasma 1.17 0.70 - 1.20 mg/dL 06/23/2025 4:31 AM EDT [facility] BUN/Creatinine Ratio 30 06/23/2025 4:31 AM EDT [facility] Sodium, Plasma 134(L) 136 - 145 mmol/L 06/23/2025 4:31 AM EDT [facility] Potassium, Plasma 3.6 3.6 - 4.9 mmol/L 06/23/2025 4:31 AM EDT [facility] Chloride, Plasma 101 97 - 107 mmol/L 06/23/2025 4:31 AM EDT [facility] CO2, Plasma 23 22 - 29 mmol/L 06/23/2025 4:31 AM EDT [facility] Anion Gap 10 6 - 16 mmol/L 06/23/2025 4:31 AM EDT [facility] Total Calcium, Plasma 8.5(L) 8.9 - 10.2 mg/dL 06/23/2025 4:31 AM EDT [facility] Total Protein 4.9(L) 6.3 - 7.9 g/dL 06/23/2025 4:31 AM EDT [facility] Albumin, Plasma 2.5(L) 3.5 - 5.2 g/dL 06/23/2025 4:31 AM EDT [facility] AST, Plasma 86(H) 10 - 50 U/L 06/23/2025 4:31 AM EDT [facility] Comment:Hemolyzed, result ma y be falsely increased. ALT, Plasma 52(H) 10 - 50 U/L 06/23/2025 4:31 AM EDT [facility] Alkaline Phosphatase, Plasma 138(H) 40 - 115 U/L 06/23/2025 4:31 AM EDT [facility] Total Bilirubin, Plasma 2.3(H) 0.2 - 1.1 mg/dL 06/23/2025 4:31 AM EDT [facility] eGFRcr 67.1 mL/min/1.7 3m*2 06/23/2025 4:31 AM EDT [facility] Comment:Reported eGFRcr in m L/min/1.73m2 is based the CKD-EPI 2020 equation that does not use a race coefficient. Blood Venous blood specimen / Unknown Venipuncture / Unknown 06/23/2025 3:41 AM EDT 06/23/2025 4:00 AM EDT Dyllan Paul MD LAB BLOOD ORDERABLES Final Re sult Performing Organization Address [facility] [place] [address] * Phosphorus (06/23/2025 3:41 AM EDT) Phosphorus, Plasma 3.3 2.5 - 4.5 mg/dL 06/23/2025 4:31 AM EDT [facility] Blood Venous blood specimen / Unknown Venipuncture / Unknown 06/23/2025 3:41 AM EDT 06/23/2025 4:00 AM EDT Dyllan Paul MD LAB BLOOD ORDERABLES Final Re sult Performing Organization Address [facility] [place] [address] * Magnesium (06/23/2025 3:41 AM EDT) Magnesium, Plasma 2.1 1.9 - 2.4 mg/dL 06/23/2025 4:31 AM EDT [facility] Blood Venous blood specimen / Unknown Venipuncture / Unknown 06/23/2025 3:41 AM EDT 06/23/2025 4:00 AM EDT Dyllan Paul MD LAB BLOOD ORDERABLES Final Re sult Performing Organization Address [facility] [place] [address] * (ABNORMAL) Hemogram (CBC) (06/23/2025 3:41 AM EDT) WBC Count 24.07(H) 3.70 - 10.30 10*3/uL LAB HEMATOLOGY METHOD 06/23/2025 4:07 AM EDT [facility] RBC Count 3.66(L) 4.60 - 6.10 10*6/uL LAB HEMATOLOGY METHOD 06/23/2025 4:07 AM EDT [facility] HGB 12.3(L) 13.7 - 17.5 g/dL LAB HEMATOLOGY METHOD 06/23/2025 4:07 AM EDT [facility] HCT 34.6(L) 40.0 - 51.0 % LAB HEMATOLOGY METHOD 06/23/2025 4:07 AM EDT [facility] Platelet Count 141(L) 155 - 369 10*3/uL LAB HEMATOLOGY METHOD 06/23/2025 4:07 AM EDT [facility] MCV 95 79 - 98 fL LAB HEMATOLOGY METHOD 06/23/2025 4:07 AM EDT [facility] MCH 33.6(H) 26.0 - 32.0 pg LAB HEMATOLOGY METHOD 06/23/2025 4:07 AM EDT [facility] MCHC 35.5 30.7 - 35.5 g/dL LAB HEMATOLOGY METHOD 06/23/2025 4:07 AM EDT [facility] RDW 15.9(H) 11.5 - 14.5 % LAB HEMATOLOGY METHOD 06/23/2025 4:07 AM EDT [facility] MPV 11.4 8.8 - 12.5 fL LAB HEMATOLOGY METHOD 06/23/2025 4:07 AM EDT [facility] nRBC 0.0 <=0.0 per 100 WBCs LAB HEMATOLOGY METHOD 06/23/2025 4:07 AM EDT [facility] Blood Venous blood specimen / Unknown Venipuncture / Unknown 06/23/2025 3:41 AM EDT 06/23/2025 4:00 AM EDT us Dyllan Paul MD LAB BLOOD ORDERABLES Final Re sult [facility] [address] [place] [address] * (ABNORMAL) Prothrombin Time/INR (06/23/2025 3:41 AM EDT) Prothrombin Time 18.6(H) 12.0 - 14.3 sec LAB COAGULATION METHOD 06/23/2025 4:17 AM EDT [facility] INR 1.5(H) 0.9 - 1.1 LAB COAGULATION METHOD 06/23/2025 4:17 AM EDT [facility] Blood Venous blood specimen / Unknown Venipuncture / Unknown 06/23/2025 3:41 AM EDT 06/23/2025 4:00 AM EDT Narrative [facility] - 06/23/2025 4:17 AM EDT OPTIMAL INR RANGES FOR PATIENT ON ORAL ANTICOAGULANT THERAPY Prevention of venous thromboembolism INR 2.0 to 3.0 In patients with heart disease: Atrial fibrillation INR 2.0 to 3.0 Valvular heart disease INR 2.0 to 3.0 Tissue heart valves INR 2.0 to 3.0 Mechanical prosthetic valves INR 2.5 to 3.5 Prevention of recurrent DE INR 2.5 to 3.5 Dyllan Paul MD LAB BLOOD ORDERABLES Final Re sult [facility] [address] [place] [address] * CT Angio Pulmonary Embolism (06/22/2025 2:26 [...] 2 Hour, Plasma (06/22/2025 1:57 PM EDT) Pathologist [facility] Troponin T, High Sensitivity, 2 Hour 16 <19 ng/L 06/22/2025 2:32 PM EDT [facility] Troponin Delta Interpretation Not Calculated 06/22/2025 2:32 PM EDT [facility] Comment:Specimen not collect ed within acceptable timeframe. Delta will not be calculated. Blood Venous blood specimen / Unknown Venipuncture / Unknown 06/22/2025 1:57 PM EDT 06/22/2025 2:04 PM EDT us Dyllan Paul MD LAB BLOOD ORDERABLES Final Re sult Performing Organization Address [facility] Co de Phone Number [facility] [address] [place] [address] * Lactate, venous (06/22/2025 12:33 PM EDT) Lactate, Venous, Whole Blood 2.1 0.5 - 2.2 mmol/L LAB HEMATOLOGY METHOD 06/22/2025 12:47 PM EDT [facility] Blood Venous blood specimen / Unknown Venipuncture / Unknown 06/22/2025 12:33 PM EDT 06/22/2025 12:45 PM EDT us Dyllan Paul MD LAB BLOOD ORDERABLES Final Re sult Performing Organization Address City/[facility]/ZIP Co de Phone Number [facility] [address] [place] [address] * Sedimentation Rate, Automated (06/22/2025 12:33 PM EDT) Sedimentation Rate 13 <20 mm/hr 2024 12:58 PM EDT [facility] Blood Venous blood specimen / Unknown Venipuncture / Unknown 06/22/2025 12:33 PM EDT 06/22/2025 12:44 PM EDT Dyllan Paul MD LAB BLOOD ORDERABLES Final Re sult Performing Organization Address [facility]/ZIP Co de Phone Number [facility] [address] [place] [address] * (ABNORMAL) C-reactive protein (06/22/2025 12:33 PM EDT) CRP, Plasma 58.6(H) <=8.0 mg/L 06/22/2025 1:19 PM EDT [facility] Blood Venous blood specimen / Unknown Venipuncture / Unknown 06/22/2025 12:33 PM EDT 06/22/2025 12:44 PM EDT Narrative [facility] - 06/22/2025 1:19 PM EDT This CRP test is appropriate for assessment of infection, systemic inflammation and/or tissue injury. To assess cardiovascular disease risk order high sensitivity CRP (CRPH). Dyllan Paul MD LAB BLOOD ORDERABLES Final Re sult Performing Organization Address City/[facility]/ZIP Co de Phone Number [facility] [address] [place] [address] * (ABNORMAL) Procalcitonin (06/22/2025 12:33 PM EDT) Procalcitonin, Plasma 0.70(H) <0.09 ng/mL 06/22/2025 1:19 PM EDT [facility] Blood Venous blood specimen / Unknown Venipuncture / Unknown 06/22/2025 12:33 PM EDT 06/22/2025 12:44 PM EDT Narrative [facility] - 06/22/2025 1:19 PM EDT Procalcitonin [...] predict 28 day mortality risk. Please consult [email or web address] for more information. Test performed at [facility]. us Dyllan Paul MD LAB BLOOD ORDERABLES Final Re sult Performing Organization Address [facility] Co de Phone Number [facility] [address] [place] [address] * Blood Culture (Aerobic/Anaerobet Set) (06/22/2025 12:33 PM EDT) Culture No growth at day 5 KEELY 06/27/2025 1:01 PM EDT [facility] Blood Venous blood specimen / Unknown Venipuncture / Unknown 06/22/2025 12:33 PM EDT 06/22/2025 12:47 PM EDT Dyllan Paul MD LAB MICROBIOLOGY - GENERAL OR DERABLES Final Result Performing Organization Address [facility] Co de Phone Number [facility] [address] [place] [address] * Troponin T, High Sensitivity, 0 Hour Plasma, Reflex to 2 Hour (06/22/2025 12:33 PM EDT) Troponin T, High Sensitivity, 0 Hour 14 <19 ng/L 06/22/2025 1:19 PM EDT [facility] Blood Venous blood specimen / Unknown Venipuncture / Unknown 06/22/2025 12:33 PM EDT 06/22/2025 12:44 PM EDT us Dyllan Paul MD LAB BLOOD ORDERABLES Final Re sult [facility] [address] [place] [address] * CT Abdomen Pelvis w IV Contrast [...] - 899 pg/mL 06/22/2025 12:26 PM EDT [facility] Blood Venous blood specimen / Unknown Venipuncture / Unknown 06/22/2025 1:57 AM EDT 06/22/2025 2:09 AM EDT us Dyllan Paul MD LAB BLOOD ORDERABLES Final Re sult [facility] [address] [place] [address] * (ABNORMAL) Comprehensive metabolic panel (06/22/2025 1:57 AM EDT) Glucose, Plasma 107(H) 74 - 99 mg/dL 06/22/2025 2:38 AM EDT [facility] BUN, Plasma 39(H) 8 - 23 mg/dL 06/22/2025 2:38 AM EDT [facility] Creatinine, Plasma 1.15 0.70 - 1.20 mg/dL 06/22/2025 2:38 AM EDT [facility] BUN/Creatinine Ratio 34 06/22/2025 2:38 AM EDT [facility] Sodium, Plasma 139 136 - 145 mmol/L 06/22/2025 2:38 AM EDT [facility] Potassium, Plasma 3.5(L) 3.6 - 4.9 mmol/L 06/22/2025 2:38 AM EDT [facility] Chloride, Plasma 103 97 - 107 mmol/L 06/22/2025 2:38 AM EDT [facility] CO2, Plasma 24 22 - 29 mmol/L 06/22/2025 2:38 AM EDT [facility] Anion Gap 12 6 - 16 mmol/L 06/22/2025 2:38 AM EDT [facility] Total Calcium, Plasma 8.2(L) 8.9 - 10.2 mg/dL 06/22/2025 2:38 AM EDT [facility] Total Protein 4.4(L) 6.3 - 7.9 g/dL 06/22/2025 2:38 AM EDT [facility] Albumin, Plasma 2.6(L) 3.5 - 5.2 g/dL 06/22/2025 2:38 AM EDT [facility] AST, Plasma 78(H) 10 - 50 U/L 06/22/2025 2:38 AM EDT [facility] Comment:Hemolyzed, result ma y be falsely increased. ALT, Plasma 44 10 - 50 U/L 06/22/2025 2:38 AM EDT [facility] Alkaline Phosphatase, Plasma 130(H) 40 - 115 U/L 06/22/2025 2:38 AM EDT [facility] Total Bilirubin, Plasma 2.4(H) 0.2 - 1.1 mg/dL 06/22/2025 2:38 AM EDT [facility] eGFRcr 68.5 mL/min/1.7 3m*2 06/22/2025 2:38 AM EDT [facility] Comment:Reported eGFRcr in m L/min/1.73m2 is based the CKD-EPI 2020 equation that does not use a race coefficient. Blood Venous blood specimen / Unknown Venipuncture / Unknown 06/22/2025 1:57 AM EDT 06/22/2025 2:09 AM EDT us Dyllan Paul MD LAB BLOOD ORDERABLES Final Re sult Performing Organization Address [facility] Co de Phone Number [facility] [address] [place] [address] * Phosphorus (06/22/2025 1:57 AM EDT) Phosphorus, Plasma 3.2 2.5 - 4.5 mg/dL 06/22/2025 2:38 AM EDT [facility] Blood Venous blood specimen / Unknown Venipuncture / Unknown 06/22/2025 1:57 AM EDT 06/22/2025 2:09 AM EDT us Dyllan Paul MD LAB BLOOD ORDERABLES Final Re sult [facility] [address] [place] [address] * Magnesium (06/22/2025 1:57 AM EDT) Magnesium, Plasma 2.1 1.9 - 2.4 mg/dL 06/22/2025 2:38 AM EDT [facility] Blood Venous blood specimen / Unknown Venipuncture / Unknown 06/22/2025 1:57 AM EDT 06/22/2025 2:09 AM EDT us Dyllan Paul MD LAB BLOOD ORDERABLES Final Re sult [facility] [address] [place] [address] * (ABNORMAL) Hemogram (CBC) (06/22/2025 1:57 AM EDT) WBC Count 16.88(H) 3.70 - 10.30 10*3/uL LAB HEMATOLOGY METHOD 06/22/2025 2:20 AM EDT [facility] RBC Count 3.61(L) 4.60 - 6.10 10*6/uL LAB HEMATOLOGY METHOD 06/22/2025 2:20 AM EDT [facility] HGB 11.6(L) 13.7 - 17.5 g/dL LAB HEMATOLOGY METHOD 06/22/2025 2:20 AM EDT [facility] HCT 34.2(L) 40.0 - 51.0 % LAB HEMATOLOGY METHOD 06/22/2025 2:20 AM EDT [facility] Platelet Count 119(L) 155 - 369 10*3/uL LAB HEMATOLOGY METHOD 06/22/2025 2:20 AM EDT [facility] MCV 95 79 - 98 fL LAB HEMATOLOGY METHOD 06/22/2025 2:20 AM EDT [facility] MCH 32.1(H) 26.0 - 32.0 pg LAB HEMATOLOGY METHOD 06/22/2025 2:20 AM EDT [facility] MCHC 33.9 30.7 - 35.5 g/dL LAB HEMATOLOGY METHOD 06/22/2025 2:20 AM EDT [facility] RDW 15.8(H) 11.5 - 14.5 % LAB HEMATOLOGY METHOD 06/22/2025 2:20 AM EDT [facility] MPV 11.8 8.8 - 12.5 fL LAB HEMATOLOGY METHOD 06/22/2025 2:20 AM EDT [facility] nRBC 0.2(H) <=0.0 per 100 WBCs LAB HEMATOLOGY METHOD 06/22/2025 2:20 AM EDT [facility] Blood Venous blood specimen / Unknown Venipuncture / Unknown 06/22/2025 1:57 AM EDT 06/22/2025 2:09 AM EDT Dyllan Paul MD LAB BLOOD ORDERABLES Final Re sult Performing Organization Address [facility] Co de Phone Number [facility] [address] [place] [address] * (ABNORMAL) Prothrombin Time/INR (06/22/2025 1:57 AM EDT) Prothrombin Time 18.3(H) 12.0 - 14.3 sec LAB COAGULATION METHOD 06/22/2025 2:29 AM EDT [facility] INR 1.5(H) 0.9 - 1.1 LAB COAGULATION METHOD 06/22/2025 2:29 AM EDT [facility] Blood Venous blood specimen / Unknown Venipuncture / Unknown 06/22/2025 1:57 AM EDT 06/22/2025 2:09 AM EDT Narrative [facility] - 06/22/2025 2:29 AM EDT OPTIMAL INR RANGES FOR PATIENT ON ORAL ANTICOAGULANT THERAPY Prevention of venous thromboembolism INR 2.0 to 3.0 In patients with heart disease: Atrial fibrillation INR 2.0 to 3.0 Valvular heart disease INR 2.0 to 3.0 Tissue heart valves INR 2.0 to 3.0 Mechanical prosthetic valves INR 2.5 to 3.5 Prevention of recurrent DE INR 2.5 to 3.5 Dyllan Paul MD LAB BLOOD ORDERABLES Final Re sult Performing Organization Address [facility] Co de Phone Number [facility] [address] [place] [address] * (ABNORMAL) Comprehensive metabolic panel (06/21/2025 3:25 AM EDT) Glucose, Plasma 105(H) 74 - 99 mg/dL 06/21/2025 4:03 AM EDT [facility] BUN, Plasma 46(H) 8 - 23 mg/dL 06/21/2025 4:03 AM EDT [facility] Creatinine, Plasma 1.24(H) 0.70 - 1.20 mg/dL 06/21/2025 4:03 AM EDT [facility] BUN/Creatinine Ratio 37 06/21/2025 4:03 AM EDT [facility] Sodium, Plasma 138 136 - 145 mmol/L 06/21/2025 4:03 AM EDT [facility] Potassium, Plasma 3.5(L) 3.6 - 4.9 mmol/L 06/21/2025 4:03 AM EDT [facility] Chloride, Plasma 102 97 - 107 mmol/L 06/21/2025 4:03 AM EDT [facility] CO2, Plasma 24 22 - 29 mmol/L 06/21/2025 4:03 AM EDT [facility] Anion Gap 12 6 - 16 mmol/L 06/21/2025 4:03 AM EDT [facility] Total Calcium, Plasma 8.3(L) 8.9 - 10.2 mg/dL 06/21/2025 4:03 AM T [facility] Total Protein 4.8(L) 6.3 - 7.9 g/dL 06/21/2025 4:03 AM T [facility] Albumin, Plasma 2.5(L) 3.5 - 5.2 g/dL 06/21/2025 4:03 AM EDT [facility] AST, Plasma 73(H) 10 - 50 U/L 06/21/2025 4:03 AM T [facility] ALT, Plasma 41 10 - 50 U/L 06/21/2025 4:03 AM T [facility] Alkaline Phosphatase, Plasma 125(H) 40 - 115 U/L 06/21/2025 4:03 AM T [facility] Total Bilirubin, Plasma 3.4(H) 0.2 - 1.1 mg/dL 06/21/2025 4:03 AM EDT [facility] eGFRcr 62.5 mL/min/1.7 3m*2 06/21/2025 4:03 AM T [facility] Comment:Reported eGFRcr in m L/min/1.73m2 is based the CKD-EPI 2020 equation that does not use a race coefficient. Blood Venous blood specimen / Unknown Venipuncture / Unknown 06/21/2025 3:25 AM EDT 06/21/2025 3:33 AM EDT us Dyllan Paul MD LAB BLOOD ORDERABLES Final Re sult Performing Organization Address [facility] Co de Phone Number [facility] [address] [place] [address] * Phosphorus (06/21/2025 3:25 AM EDT) Phosphorus, Plasma 3.7 2.5 - 4.5 mg/dL 06/21/2025 4:03 AM EDT [facility] Blood Venous blood specimen / Unknown Venipuncture / Unknown 06/21/2025 3:25 AM EDT 06/21/2025 3:33 AM EDT us Dyllan Paul MD LAB BLOOD ORDERABLES Final Re sult Performing Organization Address [facility] de Phone Number [facility] [address] [place] [address] * Magnesium (06/21/2025 3:25 AM EDT) Magnesium, Plasma 2.1 1.9 - 2.4 mg/dL 06/21/2025 4:03 AM EDT [facility] Blood Venous blood specimen / Unknown Venipuncture / Unknown 06/21/2025 3:25 AM EDT 06/21/2025 3:33 AM EDT us Dyllan Paul MD LAB BLOOD ORDERABLES Final Re sult Performing Organization Address [facility] Co de Phone Number [facility] [address] [place] [address] * (ABNORMAL) Hemogram (CBC) (06/21/2025 3:25 AM EDT) WBC Count 15.49(H) 3.70 - 10.30 10*3/uL LAB HEMATOLOGY METHOD 06/21/2025 3:43 AM EDT [facility] RBC Count 3.73(L) 4.60 - 6.10 10*6/uL LAB HEMATOLOGY METHOD 06/21/2025 3:43 AM EDT [facility] HGB 12.3(L) 13.7 - 17.5 g/dL LAB HEMATOLOGY METHOD 06/21/2025 3:43 AM EDT [facility] HCT 35.1(L) 40.0 - 51.0 % LAB HEMATOLOGY METHOD 06/21/2025 3:43 AM EDT [facility] Platelet Count 107(L) 155 - 369 10*3/uL LAB HEMATOLOGY METHOD 06/21/2025 3:43 AM EDT [facility] MCV 94 79 - 98 fL LAB HEMATOLOGY METHOD 06/21/2025 3:43 AM EDT [facility] MCH 33.0(H) 26.0 - 32.0 pg LAB HEMATOLOGY METHOD 06/21/2025 3:43 AM EDT [facility] MCHC 35.0 30.7 - 35.5 g/dL LAB HEMATOLOGY METHOD 06/21/2025 3:43 AM EDT [facility] RDW 15.9(H) 11.5 - 14.5 % LAB HEMATOLOGY METHOD 06/21/2025 3:43 AM EDT [facility] MPV 11.8 8.8 - 12.5 fL LAB HEMATOLOGY METHOD 06/21/2025 3:43 AM EDT [facility] nRBC 0.2(H) <=0.0 per 100 WBCs LAB HEMATOLOGY METHOD 06/21/2025 3:43 AM EDT [facility] Blood Venous blood specimen / Unknown Venipuncture / Unknown 06/21/2025 3:25 AM EDT 06/21/2025 3:33 AM EDT us Dyllan Paul MD LAB BLOOD ORDERABLES Final Re sult [facility] [address] [place] [address] * (ABNORMAL) Prothrombin Time/INR (06/21/2025 3:25 AM EDT) Prothrombin Time 18.7(H) 12.0 - 14.3 sec LAB COAGULATION METHOD 06/21/2025 4:27 AM EDT [facility] INR 1.5(H) 0.9 - 1.1 LAB COAGULATION METHOD 06/21/2025 4:27 AM EDT [facility] Blood Venous blood specimen / Unknown Venipuncture / Unknown 06/21/2025 3:25 AM EDT 06/21/2025 3:32 AM EDT Narrative [facility] - 06/21/2025 4:27 AM EDT OPTIMAL INR RANGES FOR PATIENT ON ORAL ANTICOAGULANT THERAPY Prevention of venous thromboembolism INR 2.0 to 3.0 In patients with heart disease: Atrial fibrillation INR 2.0 to 3.0 Valvular heart disease INR 2.0 to 3.0 Tissue heart valves INR 2.0 to 3.0 Mechanical prosthetic valves INR 2.5 to 3.5 Prevention of recurrent DE INR 2.5 to 3.5 us Dyllan Paul MD LAB BLOOD ORDERABLES Final Re sult Performing Organization Address [facility] Co de Phone Number [address] [address] * Creatinine, Drain Fluid (06/20/2025 1:43 PM EDT) Creatinine, Fluid 1.35 mg/dL 06/20/2025 3:10 PM EDT [facility] Fluid Drainage fluid specimen / Unknown 06/20/2025 1:43 PM EDT 06/20/2025 2:15 PM EDT Narrative [facility] - 06/20/2025 3:10 PM EDT Reference Values: No established reference interval. Results should be interpreted in comparison to the concentration in blood and in conjunction with the clinical context. This test was developed and its performance characteristics determined by [facility]. The U.S. Food and Drug Administration has not approved or cleared this test; however, FDA clearance or approval is not currently required for clinical use. The results are not intended to be used as the sole means for clinical diagnosis or patient management decisions. Interpretation: A body fluid to plasma ratio >1.0 suggests the presence of urine in the sample. us Dyllan Paul MD LAB BODY FLUIDS AND STOOLS OR DERABLES Final Result Performing Organization Address [facility] Co de Phone Number [address] [place] [address] * (ABNORMAL) Hemogram (CBC) (06/20/2025 11:12 AM EDT) WBC Count 14.75(H) 3.70 - 10.30 10*3/uL LAB HEMATOLOGY METHOD 06/20/2025 11:31 AM EDT [facility] RBC Count 3.67(L) 4.60 - 6.10 10*6/uL LAB HEMATOLOGY METHOD 06/20/2025 11:31 AM EDT [facility] HGB 12.2(L) 13.7 - 17.5 g/dL LAB HEMATOLOGY METHOD 06/20/2025 11:31 AM EDT [facility] HCT 35.0(L) 40.0 - 51.0 % LAB HEMATOLOGY METHOD 06/20/2025 11:31 AM EDT [facility] Platelet Count 103(L) 155 - 369 10*3/uL LAB HEMATOLOGY METHOD 06/20/2025 11:31 AM EDT [facility] MCV 95 79 - 98 fL LAB HEMATOLOGY METHOD 06/20/2025 11:31 AM EDT [facility] MCH 33.2(H) 26.0 - 32.0 pg LAB HEMATOLOGY METHOD 06/20/2025 11:31 AM EDT [facility] MCHC 34.9 30.7 - 35.5 g/dL LAB HEMATOLOGY METHOD 06/20/2025 11:31 AM EDT [facility] RDW 15.9(H) 11.5 - 14.5 % LAB HEMATOLOGY METHOD 06/20/2025 11:31 AM EDT [facility] MPV 11.4 8.8 - 12.5 fL LAB HEMATOLOGY METHOD 06/20/2025 11:31 AM EDT [facility] nRBC 0.1(H) <=0.0 per 100 WBCs LAB HEMATOLOGY METHOD 06/20/2025 11:31 AM EDT [facility] Blood Venous blood specimen / Unknown Venipuncture / Unknown 06/20/2025 11:12 AM EDT 06/20/2025 11:19 AM EDT us Dyllan Paul MD LAB BLOOD ORDERABLES Final Re sult [facility] [address] [place] [address] * (ABNORMAL) Blood gas panel, venous (06/20/2025 11:12 AM EDT) pH, Venous 7.44(H) 7.32 - 7.43 LAB HEMATOLOGY METHOD 06/20/2025 11:23 AM EDT [facility] pCO2, Venous 38(L) 40 - 55 mmHg LAB HEMATOLOGY METHOD 06/20/2025 11:23 AM EDT [facility] pO2, Venous 60(H) 25 - 40 mmHg LAB HEMATOLOGY METHOD 06/20/2025 11:23 AM EDT [facility] SO2, Measured, Venous 88(H) 65 - 80 % LAB HEMATOLOGY METHOD 06/20/2025 11:23 AM EDT [facility] Base Excess, Venous 1.5 -2.0 - 3.0 mmol/L LAB HEMATOLOGY METHOD 06/20/2025 11:23 AM EDT [facility] Bicarbonate, Calculated, Venous 26 22 - 26 mmol/L LAB HEMATOLOGY METHOD 06/20/2025 11:23 AM EDT [facility] Hematocrit, Whole Blood 32.5(L) 40.0 - 51.0 % LAB HEMATOLOGY METHOD 06/20/2025 11:23 AM EDT [facility] Sodium, Whole Blood 135(L) 136 - 145 mmol/L LAB HEMATOLOGY METHOD 06/20/2025 11:23 AM EDT [facility] Potassium, Whole Blood 2.8(L) 3.6 - 4.9 mmol/L LAB HEMATOLOGY METHOD 06/20/2025 11:23 AM EDT [facility] Chloride, Whole Blood 101 97 - 107 mmol/L LAB HEMATOLOGY METHOD 06/20/2025 11:23 AM EDT [facility] Glucose, Whole Blood 164(H) 74 - 99 mg/dL LAB HEMATOLOGY METHOD 06/20/2025 11:23 AM EDT [facility] Lactate, Venous, Whole Blood 2.5(H) 0.5 - 2.2 mmol/L LAB HEMATOLOGY METHOD 06/20/2025 11:23 AM EDT [facility] Ionized Calcium, Whole Blood 4.4(L) 4.6 - 5.1 mg/dL LAB HEMATOLOGY METHOD 06/20/2025 11:23 AM EDT [facility] Blood Venous blood specimen / Unknown Venipuncture / Unknown 06/20/2025 11:12 AM EDT 06/20/2025 11:20 AM EDT us Dyllan Paul MD LAB BLOOD ORDERABLES Final Re sult [facility] [address] [place] [address] * [place] Cystogram (06/20/2025 10:01 AM EDT) [...] radiograph from June 14, 2025. 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 Abdominal radiograph from 2024. FINDINGS: On cannon crewmember images, there are 3 rounded calcifications overlying [...] - 99 mg/dL 06/20/2025 2:42 AM EDT [facility] BUN, Plasma 50(H) 8 - 23 mg/dL 06/20/2025 2:42 AM EDT [facility] Creatinine, Plasma 1.28(H) 0.70 - 1.20 mg/dL 06/20/2025 2:42 AM EDT [facility] BUN/Creatinine Ratio 39 06/20/2025 2:42 AM EDT [facility] Sodium, Plasma 139 136 - 145 mmol/L 06/20/2025 2:42 AM EDT [facility] Potassium, Plasma 4.2 3.6 - 4.9 mmol/L 06/20/2025 2:42 AM EDT [facility] Comment:Hemolyzed, result ma y be falsely increased. Chloride, Plasma 105 97 - 107 mmol/L 06/20/2025 2:42 AM EDT [facility] CO2, Plasma 21(L) 22 - 29 mmol/L 06/20/2025 2:42 AM EDT [facility] Anion Gap 13 6 - 16 mmol/L 06/20/2025 2:42 AM EDT [facility] Total Calcium, Plasma 8.6(L) 8.9 - 10.2 mg/dL 06/20/2025 2:42 AM EDT [facility] Total Protein 4.9(L) 6.3 - 7.9 g/dL 06/20/2025 2:42 AM EDT [facility] Albumin, Plasma 2.5(L) 3.5 - 5.2 g/dL 06/20/2025 2:42 AM EDT [facility] AST, Plasma 83(H) 10 - 50 U/L 06/20/2025 2:42 AM EDT [facility] Comment:Hemolyzed, result ma y be falsely increased. ALT, Plasma 36 10 - 50 U/L 06/20/2025 2:42 AM EDT [facility] Comment:Hemolyzed, result ma y be falsely increased or decreased. Alkaline Phosphatase, Plasma 133(H) 40 - 115 U/L 06/20/2025 2:42 AM EDT [facility] Total Bilirubin, Plasma 2.8(H) 0.2 - 1.1 mg/dL 06/20/2025 2:42 AM EDT [facility] eGFRcr 60.2 mL/min/1.7 3m*2 06/20/2025 2:42 AM EDT [facility] Comment:Reported eGFRcr in m L/min/1.73m2 is based the CKD-EPI 2020 equation that does not use a race coefficient. Blood Venous blood specimen / Unknown Venipuncture / Unknown 06/20/2025 2:07 AM EDT 06/20/2025 2:14 AM EDT Dyllan Paul MD LAB BLOOD ORDERABLES Final Re sult Performing Organization Address City/[facility]/ZIP Co de Phone Number [facility] [address] [place] [address] * (ABNORMAL) Phosphorus (06/20/2025 2:07 AM EDT) Phosphorus, Plasma 4.7(H) 2.5 - 4.5 mg/dL 06/20/2025 2:42 AM EDT [facility] Blood Venous blood specimen / Unknown Venipuncture / Unknown 06/20/2025 2:07 AM EDT 06/20/2025 2:14 AM EDT us Dyllan Paul MD LAB BLOOD ORDERABLES Final Re sult [facility] [address] [place] [address] * Magnesium (06/20/2025 2:07 AM EDT) Magnesium, Plasma 2.0 1.9 - 2.4 mg/dL 06/20/2025 2:42 AM EDT [facility] Blood Venous blood specimen / Unknown Venipuncture / Unknown 06/20/2025 2:07 AM EDT 06/20/2025 2:14 AM EDT Dyllan Paul MD LAB BLOOD ORDERABLES Final Re sult Performing Organization Address [facility]/ZIP Co de Phone Number [facility] [address] [place] [address] * (ABNORMAL) Prothrombin Time/INR (06/20/2025 2:07 AM EDT) Prothrombin Time 16.9(H) 12.0 - 14.3 sec LAB COAGULATION METHOD 06/20/2025 2:31 AM EDT [facility] INR 1.3(H) 0.9 - 1.1 LAB COAGULATION METHOD 06/20/2025 2:31 AM EDT [facility] Blood Venous blood specimen / Unknown Venipuncture / Unknown 06/20/2025 2:07 AM EDT 06/20/2025 2:14 AM EDT Narrative [facility] - 06/20/2025 2:31 AM EDT OPTIMAL INR RANGES FOR PATIENT ON ORAL ANTICOAGULANT THERAPY Prevention of venous thromboembolism INR 2.0 to 3.0 In patients with heart disease: Atrial fibrillation INR 2.0 to 3.0 Valvular heart disease INR 2.0 to 3.0 Tissue heart valves INR 2.0 to 3.0 Mechanical prosthetic valves INR 2.5 to 3.5 Prevention of recurrent DE INR 2.5 to 3.5 Dyllan Paul MD LAB BLOOD ORDERABLES Final Re sult Performing Organization Address City/[facility]/ZIP Co de Phone Number [facility] [address] [place] [address] * Urinalysis Microscopic Examination (06/19/2025 2:16 PM EDT) Urine Urine specimen obtained by clean catch procedure / Unknown Non-blood Collection / Unknown 06/19/2025 2:16 PM EDT 06/19/2025 2:23 PM EDT Result Mirella Paul MD LAB URINE ORDERABLES Final Re sult Performing Organization Address [facility] Co de Phone Number [facility] [address] [place] [address] * Osmolality, urine (06/19/2025 2:16 PM EDT) Osmolality, Urine 645 50 - 1,200 mOsm/kg 06/19/2025 3:14 PM EDT [facility] Urine Urine specimen obtained by clean catch procedure / Unknown Non-blood Collection / Unknown 06/19/2025 2:16 PM EDT 06/19/2025 2:31 PM EDT Result Mirella Paul MD LAB URINE ORDERABLES Final Re sult Performing Organization Address [facility] [place] [place] [address] * Creatinine, urine, random (06/19/2025 2:16 PM EDT) Creatinine, Urine 99 mg/dL 06/19/2025 3:06 PM EDT [facility] Urine Urine specimen obtained by clean catch procedure / Unknown Non-blood Collection / Unknown 06/19/2025 2:16 PM EDT 06/19/2025 2:22 PM EDT Result Mirella Paul MD LAB URINE ORDERABLES Final Re sult Performing Organization Address [facility] Co de Phone Number [facility] [address] [place] [address] * Sodium, urine, random (06/19/2025 2:16 PM EDT) Sodium, Urine <20 mmol/L 06/19/2025 3:06 PM EDT [facility] Urine Urine specimen obtained by clean catch procedure / Unknown Non-blood Collection / Unknown 06/19/2025 2:16 PM EDT 06/19/2025 2:22 PM EDT us Dyllan Paul MD LAB URINE ORDERABLES Final Re sult [facility] [address] [place] [address] * (ABNORMAL) Urinalysis with reflex microscopic (Culture NOT Included) (06/19/2025 2:16 PM EDT) Color, Urine Yellow LAB URINALYSIS - AUTOMATED METHOD 06/19/2025 2:33 PM EDT [facility] Clarity, Urine Clear LAB URINALYSIS - AUTOMATED METHOD 06/19/2025 2:33 PM EDT [facility] Spec [place], Urine 1.024 1.005 - 1.030 LAB URINALYSIS - AUTOMATED METHOD 06/19/2025 2:33 PM EDT [facility] pH, Urine 6.0 5.0 - 8.0 LAB URINALYSIS - AUTOMATED METHOD 06/19/2025 2:33 PM EDT [facility] Protein, Urine 30(A) Negative mg/dL LAB URINALYSIS - AUTOMATED METHOD 06/19/2025 2:33 PM EDT [facility] Glucose, Urine Negative Negative mg/dL LAB URINALYSIS - AUTOMATED METHOD 06/19/2025 2:33 PM EDT [facility] Ketones, Urine Trace(A) Negative mg/dL LAB URINALYSIS - AUTOMATED METHOD 06/19/2025 2:33 PM EDT [facility] Blood, Urine Large(A) Negative LAB URINALYSIS - AUTOMATED METHOD 06/19/2025 2:33 PM EDT [facility] Bilirubin, Urine Negative Negative LAB URINALYSIS - AUTOMATED METHOD 06/19/2025 2:33 PM EDT [facility] Urobilinogen, Urine 1.0 0.2 to 1.0 mg/dL LAB URINALYSIS - AUTOMATED METHOD 06/19/2025 2:33 PM EDT [facility] Leukocytes, Urine Small(A) Negative LAB URINALYSIS - AUTOMATED METHOD 06/19/2025 2:33 PM EDT [facility] Nitrite, Urine Negative Negative LAB URINALYSIS - AUTOMATED METHOD 06/19/2025 2:33 PM EDT [facility] RBC, Urine >50(A) 0 to 3 /HPF LAB URINALYSIS - AUTOMATED METHOD 06/19/2025 2:33 PM EDT [facility] WBC, Urine 6 - 10(A) 0 to 5 /HPF LAB URINALYSIS - AUTOMATED METHOD 06/19/2025 2:33 PM EDT [facility] Squamous Epithelial Cells 0 - 2 0 to 5 /HPF LAB URINALYSIS - AUTOMATED METHOD 06/19/2025 2:33 PM EDT [facility] Hyaline Casts 0 - 2 0 to 5 /LPF LAB URINALYSIS - AUTOMATED METHOD 06/19/2025 2:33 PM EDT [facility] Bacteria, Urine Negative Negative LAB URINALYSIS - AUTOMATED METHOD 06/19/2025 2:33 PM EDT [facility] Urine Urine specimen obtained by clean catch procedure / Unknown Non-blood Collection / Unknown 06/19/2025 2:16 PM EDT 06/19/2025 2:23 PM EDT Dyllan Paul MD LAB URINE ORDERABLES Final Re sult [facility] [address] [place] [address] * (ABNORMAL) POCT glucose meter (06/19/2025 12:41 PM EDT) [facility] Signature POCT Glucose 127(H) 74 - 99 mg/dL [...] Comment 06/19/2025 12:43 PM EDT [facility] Assembly Adjuster ID Sanjuana Sapp 06/19/2025 12:43 PM EDT [facility]ALTH[facility] LAB Device ID [id number] 06/19/2025 12:43 PM EDT [facility] Specimen Type POC Capillary 06/19/2025 12:43 PM EDT [facility] Blood Capillary blood specimen / Unknown 06/19/2025 12:41 PM EDT 06/19/2025 12:43 PM EDT Dyllan Paul MD LAB POINT OF CARE TE ST DOCKED DEVICE UNSOLICITED RESULTS Final Result Performing Organization Address [facility] Co de Phone Number [facility] [address] [place] [address] * (ABNORMAL) POCT glucose meter (06/19/2025 9:58 AM EDT) Pathologist [facility] POCT Glucose 125(H) 74 - 99 mg/dL [...] for testing. Comment 06/19/2025 10:00 AM EDT [facility] Assembly Adjuster ID Sanjuana Sapp 06/19/2025 10:00 AM EDT [facility] Device ID [id number] 06/19/2025 10:00 AM EDT [facility] Specimen Type POC Capillary 06/19/2025 10:00 AM EDT [facility] Blood Capillary blood specimen / Unknown 06/19/2025 9:58 AM EDT 06/19/2025 10:00 AM EDT Dyllan Paul MD LAB POINT OF CARE TE ST DOCKED DEVICE UNSOLICITED RESULTS Final Result Performing Organization Address City/[facility] Co de Phone Number [facility] [address] [place] [address] * (ABNORMAL) POCT glucose meter (06/19/2025 5:49 AM EDT) Pathologist [facility] POCT Glucose 141(H) 74 - 99 mg/dL [...] Comment 06/19/2025 5:51 AM EDT [facility]ALTH[facility] LAB Assembly Adjuster ID Kathy Palmer 06/19/2025 5:51 AM EDT [facility]ALTH[facility]ARE LAB Device ID [id number] 06/19/2025 5:51 AM EDT [facility]ALTH[facility]ARE LAB Specimen Type POC Capillary 06/19/2025 5:51 AM EDT [facility] Blood Capillary blood specimen / Unknown 06/19/2025 5:49 AM EDT 06/19/2025 5:51 AM EDT Dyllan Paul MD LAB POINT OF CARE TE ST DOCKED DEVICE UNSOLICITED RESULTS Final Result [facility] [address] [place] [address] * (ABNORMAL) Hepatic function panel (06/19/2025 1:00 AM EDT) Direct Bilirubin, Plasma 1.1(H) <=0.3 mg/dL 06/19/2025 6:48 PM EDT [facility] Comment:Hemolyzed, result ma y be falsely decreased. Alkaline Phosphatase, Plasma 179(H) 40 - 115 U/L 06/19/2025 6:48 PM EDT [facility] Total Bilirubin, Plasma 2.5(H) 0.2 - 1.1 mg/dL 06/19/2025 6:48 PM EDT [facility] Albumin, Plasma 2.7(L) 3.5 - 5.2 g/dL 06/19/2025 6:48 PM EDT [facility] Total Protein 5.1(L) 6.3 - 7.9 g/dL 06/19/2025 6:48 PM EDT [facility] ALT, Plasma 33 10 - 50 U/L 06/19/2025 6:48 PM EDT [facility] AST, Plasma 59(H) 10 - 50 U/L 06/19/2025 6:48 PM EDT [facility] Comment:Hemolyzed, result ma y be falsely increased. Blood Venous blood specimen / Unknown Venipuncture / Unknown 06/19/2025 1:00 AM EDT 06/19/2025 1:04 AM EDT us Anna Armas MD LAB BLOOD ORDERABLES Final Resul t [facility] [address] [place] [address] * (ABNORMAL) Cystatin C (06/19/2025 1:00 AM EDT) [facility] Cystatin C 1.9(H) 0.61 - 0.95 mg/L 06/19/2025 2:07 PM EDT [facility] Blood Venous blood specimen / Unknown Venipuncture / Unknown 06/19/2025 1:00 AM EDT 06/19/2025 1:04 AM EDT Dyllan Paul MD LAB BLOOD ORDERABLES Final Re sult Performing Organization Address [facility]/ZIP Co de Phone Number [facility] [address] [place] [address] * (ABNORMAL) Osmolality (06/19/2025 1:00 AM EDT) [facility] Osmolality, Serum 311(H) 280 - 301 mOsm/Kg 06/19/2025 1:05 PM EDT [facility] Blood Venous blood specimen / Unknown Venipuncture / Unknown 06/19/2025 1:00 AM EDT 06/19/2025 1:04 AM EDT Dyllan Paul MD LAB BLOOD ORDERABLES Final Re sult Performing Organization Address City/[facility]/ZIP Co de Phone Number [facility] [address] [place] [address] * Phosphorus (06/19/2025 1:00 AM EDT) [facility] Phosphorus, Plasma 3.8 2.5 - 4.5 mg/dL 06/19/2025 1:33 AM EDT [facility] Blood Venous blood specimen / Unknown Venipuncture / Unknown 06/19/2025 1:00 AM EDT 06/19/2025 1:04 AM EDT us Dyllan Paul MD LAB BLOOD ORDERABLES Final Re sult Performing Organization Address City/[facility]/ZIP Co de Phone Number [facility] [address] [place] [address] * Magnesium (06/19/2025 1:00 AM EDT) Magnesium, Plasma 2.0 1.9 - 2.4 mg/dL 06/19/2025 1:33 AM EDT [facility] Blood Venous blood specimen / Unknown Venipuncture / Unknown 06/19/2025 1:00 AM EDT 06/19/2025 1:04 AM EDT us Dyllan Paul MD LAB BLOOD ORDERABLES Final Re sult Performing Organization Address [facility] Co de Phone Number [facility] [address] [place] [address] * (ABNORMAL) Basic metabolic panel (06/19/2025 1:00 AM EDT) Glucose, Plasma 131(H) 74 - 99 mg/dL 06/19/2025 1:33 AM EDT [facility] BUN, Plasma 51(H) 8 - 23 mg/dL 06/19/2025 1:33 AM EDT [facility] Creatinine, Plasma 1.29(H) 0.70 - 1.20 mg/dL 06/19/2025 1:33 AM EDT [facility] BUN/Creatinine Ratio 40 06/19/2025 1:33 AM EDT [facility] Sodium, Plasma 146(H) 136 - 145 mmol/L 06/19/2025 1:33 AM EDT [facility] Potassium, Plasma 3.6 3.6 - 4.9 mmol/L 06/19/2025 1:33 AM EDT [facility] Chloride, Plasma 111(H) 97 - 107 mmol/L 06/19/2025 1:33 AM EDT [facility] CO2, Plasma 25 22 - 29 mmol/L 06/19/2025 1:33 AM EDT [facility] Anion Gap 10 6 - 16 mmol/L 06/19/2025 1:33 AM EDT [facility] Total Calcium, Plasma 8.9 8.9 - 10.2 mg/dL 06/19/2025 1:33 AM EDT [facility] eGFRcr 59.6 mL/min/1.7 3m*2 06/19/2025 1:33 AM EDT [facility] Comment:Reported eGFRcr in m L/min/1.73m2 is based the CKD-EPI 2020 equation that does not use a race coefficient. Blood Venous blood specimen / Unknown Venipuncture / Unknown 06/19/2025 1:00 AM EDT 06/19/2025 1:04 AM EDT us Dyllan Paul MD LAB BLOOD ORDERABLES Final Re sult [facility] [address] [place] [address] * (ABNORMAL) Hemogram (CBC) (06/19/2025 1:00 AM EDT) WBC Count 13.62(H) 3.70 - 10.30 10*3/uL LAB HEMATOLOGY METHOD 06/19/2025 1:11 AM EDT [facility] RBC Count 3.72(L) 4.60 - 6.10 10*6/uL LAB HEMATOLOGY METHOD 06/19/2025 1:11 AM EDT [facility] HGB 12.1(L) 13.7 - 17.5 g/dL LAB HEMATOLOGY METHOD 06/19/2025 1:11 AM EDT [facility] HCT 36.3(L) 40.0 - 51.0 % LAB HEMATOLOGY METHOD 06/19/2025 1:11 AM EDT [facility] Platelet Count 90(L) 155 - 369 10*3/uL LAB HEMATOLOGY METHOD 06/19/2025 1:11 AM EDT [facility] MCV 98 79 - 98 fL LAB HEMATOLOGY METHOD 06/19/2025 1:11 AM EDT [facility] MCH 32.5(H) 26.0 - 32.0 pg LAB HEMATOLOGY METHOD 06/19/2025 1:11 AM EDT [facility] MCHC 33.3 30.7 - 35.5 g/dL LAB HEMATOLOGY METHOD 06/19/2025 1:11 AM EDT [facility] RDW 16.5(H) 11.5 - 14.5 % LAB HEMATOLOGY METHOD 06/19/2025 1:11 AM EDT [facility] MPV 12.4 8.8 - 12.5 fL LAB HEMATOLOGY METHOD 06/19/2025 1:11 AM EDT [facility] nRBC 0.1(H) <=0.0 per 100 WBCs LAB HEMATOLOGY METHOD 06/19/2025 1:11 AM EDT [facility] Blood Venous blood specimen / Unknown Venipuncture / Unknown 06/19/2025 1:00 AM EDT 06/19/2025 1:04 AM EDT us Dyllan Paul MD LAB BLOOD ORDERABLES Final Re sult [facility] [address] [place] [address] * Ammonia, Plasma (06/19/2025 1:00 AM EDT) Pathologist [facility] Ammonia 45 11 - 51 umol/L 06/19/2025 1:29 AM EDT [facility] Comment:Improper specimen marquez ndling may falsely increase results. Blood Venous blood specimen / Unknown Venipuncture / Unknown 06/19/2025 1:00 AM EDT 06/19/2025 1:04 AM EDT us Michelle Iniguez APRN LAB BLOOD ORDERABLES Final R esult [facility] [address] [place] [address] * (ABNORMAL) POCT glucose meter (06/19/2025 12:59 AM EDT) POCT Glucose 123(H) 74 - 99 mg/dL 06/19/2025 1:03 AM EDT [facility] Comment:Accuracy of a glucos e result [...] Comment 06/19/2025 1:03 AM EDT [facility] Assembly Adjuster ID Kathy Palmer 06/19/2025 1:03 AM EDT [facility] LAB Device ID [id number] 06/19/2025 1:03 AM EDT [facility] Specimen Type POC Venous 06/19/2025 1:03 AM EDT [facility] Blood Venous blood specimen / Unknown 06/19/2025 12:59 AM EDT 06/19/2025 1:03 AM EDT us Dyllan Paul MD LAB POINT OF CARE TE ST DOCKED DEVICE UNSOLICITED RESULTS Final Result Performing Organization Address City/State/[facility] Co de Phone Number [facility] [address] [place] [address] * (ABNORMAL) POCT glucose meter (06/18/2025 5:37 PM EDT) [facility] Signature POCT Glucose 150(H) 74 - [...] Comment 06/18/2025 5:39 PM EDT [facility] Assembly Adjuster ID Lesia Booth 5:39 PM EDT [facility] LAB Device ID [id number] 06/18/2025 5:39 PM EDT [facility] LAB Specimen Type POC Capillary 06/18/2025 5:39 PM EDT [facility] Blood Capillary blood specimen / Unknown 06/18/2025 5:37 PM EDT 06/18/2025 5:39 PM EDT us Dyllan Paul MD LAB POINT OF CARE TE ST DOCKED DEVICE UNSOLICITED RESULTS Final Result Performing Organization Address City/[facility]/ZIP Co de Phone Number [facility] [address] [place] [address] * (ABNORMAL) POCT glucose meter (06/18/2025 12:29 [...] for testing. Comment 06/18/2025 12:30 PM EDT [facility] Assembly Adjuster ID Lesia Booth 12:30 PM EDT [facility] [facility] Device ID [id number] 06/18/2025 12:30 PM EDT [facility] Specimen Type POC Capillary 06/18/2025 12:30 PM EDT [facility] Blood Capillary blood specimen / Unknown 06/18/2025 12:29 PM EDT 06/18/2025 12:30 PM EDT Dyllan Paul MD LAB POINT OF CARE TE ST DOCKED DEVICE UNSOLICITED RESULTS Final Result Performing Organization Address City/[facility] Co de Phone Number [facility] [address] [place] [address] * [facility], E/M 30-74 MINUTES (06/18/2025 9:49 [...] Comment 06/18/2025 5:52 AM EDT [facility] LAB Assembly Adjuster ID Aurea Schaefer 06/18/2025 5:52 AM EDT [employer] [facility] Device ID [id number] 06/18/2025 5:52 AM EDT [facility] Specimen Type POC Arterial 06/18/2025 5:52 AM EDT [facility] Blood Arterial blood specimen / Unknown 06/18/2025 5:50 AM EDT 06/18/2025 5:52 AM EDT us Dyllan Paul MD LAB POINT OF CARE TE ST DOCKED DEVICE UNSOLICITED RESULTS Final Result [facility] [address] [place] [id number] * (ABNORMAL) Blood gas panel, arterial (06/18/2025 5:47 AM EDT) pH, Arterial 7.48(H) 7.31 - 7.42 LAB HEMATOLOGY METHOD 06/18/2025 5:59 AM EDT [facility] pCO2, Arterial 36 32 - 45 mmHg LAB HEMATOLOGY METHOD 06/18/2025 5:59 AM EDT [facility] pO2, Arterial 63(L) >70 mmHg LAB HEMATOLOGY METHOD 06/18/2025 5:59 AM EDT [facility] SO2, Measured, Arterial 94 94 - 98 % LAB HEMATOLOGY METHOD 06/18/2025 5:59 AM EDT [facility] Base Excess, Arterial 3.3(H) -2.0 - 3.0 mmol/L LAB HEMATOLOGY METHOD 06/18/2025 5:59 AM EDT [facility] Bicarbonate, Calculated, Arterial 27(H) 22 - 26 mmol/L LAB HEMATOLOGY METHOD 06/18/2025 5:59 AM EDT [facility] Hematocrit, Whole Blood 37.9(L) 40.0 - 51.0 % LAB HEMATOLOGY METHOD 06/18/2025 5:59 AM EDT [facility] Sodium, Whole Blood 153(H) 136 - 145 mmol/L LAB HEMATOLOGY METHOD 06/18/2025 5:59 AM EDT [facility] Potassium, Whole Blood 4.3 3.6 - 4.9 mmol/L LAB HEMATOLOGY METHOD 06/18/2025 5:59 AM EDT [facility] Chloride, Whole Blood 119(H) 97 - 107 mmol/L LAB HEMATOLOGY METHOD 06/18/2025 5:59 AM EDT [facility] Glucose, Whole Blood 138(H) 74 - 99 mg/dL LAB HEMATOLOGY METHOD 06/18/2025 5:59 AM EDT [facility] Ionized Calcium, Whole Blood 5.1 4.6 - 5.1 mg/dL LAB HEMATOLOGY METHOD 06/18/2025 5:59 AM EDT [facility] Lactate, Arterial, Whole Blood 1.6 0.5 - 1.6 mmol/L LAB HEMATOLOGY METHOD 06/18/2025 5:59 AM EDT [facility] Blood Arterial blood specimen / Unknown Arterial Puncture / Unknown 06/18/2025 5:47 AM EDT 06/18/2025 5:57 AM EDT Michelle Iniguez APRN LAB BLOOD ORDERABLES Final R esult [facility] [address] [place] [address] * (ABNORMAL) POCT glucose meter (06/18/2025 12:10 AM EDT) [facility] POCT Glucose 152(H) 74 - 99 mg/dL 06/18/2025 12:12 AM EDT [facility] Comment:Accuracy of [...] Comment 06/18/2025 12:12 AM EDT [facility]ARE LAB Assembly Adjuster ID Aurea Schaefer 06/18/2025 12:12 AM EDT [facility]ALTH[facility]ARE LAB Device ID [id number] 06/18/2025 12:12 AM EDT [facility] LAB Specimen Type POC Arterial 06/18/2025 12:12 AM EDT [facility] Blood Arterial blood specimen / Unknown 06/18/2025 12:10 AM EDT 06/18/2025 12:12 AM EDT us Dyllan Paul MD LAB POINT OF CARE TE ST DOCKED DEVICE UNSOLICITED RESULTS Final Result Performing Organization Address [facility] Co de Phone Number [facility] [address] [place] [address] * Phosphorus (06/17/2025 11:58 PM EDT) [facility] Phosphorus, Plasma 3.1 2.5 - 4.5 mg/dL 06/18/2025 12:32 AM EDT [facility] Blood Venous blood specimen / Unknown Venipuncture / Unknown 06/17/2025 11:58 PM EDT 06/18/2025 12:05 AM EDT us Dyllan Paul MD LAB BLOOD ORDERABLES Final Re sult Performing Organization Address City/[facility]/ZIP Co de Phone Number [facility] [address] [place] [address] * Magnesium (06/17/2025 11:58 PM EDT) Magnesium, Plasma 2.3 1.9 - 2.4 mg/dL 06/18/2025 12:32 AM EDT [facility] Blood Venous blood specimen / Unknown Venipuncture / Unknown 06/17/2025 11:58 PM EDT 06/18/2025 12:05 AM EDT us Dyllan Paul MD LAB BLOOD ORDERABLES Final Re sult [facility] [address] [place] [address] * (ABNORMAL) Basic metabolic panel (06/17/2025 11:58 PM EDT) Glucose, Plasma 160(H) 74 - 99 mg/dL 06/18/2025 12:32 AM EDT [facility] BUN, Plasma 52(H) 8 - 23 mg/dL 06/18/2025 12:32 AM EDT [facility] Creatinine, Plasma 1.23(H) 0.70 - 1.20 mg/dL 06/18/2025 12:32 AM EDT [facility] BUN/Creatinine Ratio 42 06/18/2025 12:32 AM EDT [facility] Sodium, Plasma 151(H) 136 - 145 mmol/L 06/18/2025 12:32 AM EDT [facility] Potassium, Plasma 3.8 3.6 - 4.9 mmol/L 06/18/2025 12:32 AM EDT [facility] Chloride, Plasma 118(H) 97 - 107 mmol/L 06/18/2025 12:32 AM EDT [facility] CO2, Plasma 24 22 - 29 mmol/L 06/18/2025 12:32 AM EDT [facility] Anion Gap 9 6 - 16 mmol/L 06/18/2025 12:32 AM EDT [facility] Total Calcium, Plasma 9.0 8.9 - 10.2 mg/dL 06/18/2025 12:32 AM EDT [facility] eGFRcr 63.2 mL/min/1.7 3m*2 06/18/2025 12:32 AM EDT [facility] Comment:Reported eGFRcr in m L/min/1.73m2 is based the CKD-EPI 2020 equation that does not use a race coefficient. Blood Venous blood specimen / Unknown Venipuncture / Unknown 06/17/2025 11:58 PM EDT 06/18/2025 12:05 AM EDT us Dyllan Paul MD LAB BLOOD ORDERABLES Final Re sult [facility] [address] [place] [address] * (ABNORMAL) Hemogram (CBC) (06/17/2025 11:58 PM EDT) WBC Count 12.86(H) 3.70 - 10.30 10*3/uL LAB HEMATOLOGY METHOD 06/18/2025 12:15 AM EDT [facility] RBC Count 3.74(L) 4.60 - 6.10 10*6/uL LAB HEMATOLOGY METHOD 06/18/2025 12:15 AM EDT [facility] HGB 12.0(L) 13.7 - 17.5 g/dL LAB HEMATOLOGY METHOD 06/18/2025 12:15 AM EDT [facility] HCT 35.2(L) 40.0 - 51.0 % LAB HEMATOLOGY METHOD 06/18/2025 12:15 AM EDT [facility] Platelet Count 93(L) 155 - 369 10*3/uL LAB HEMATOLOGY METHOD 06/18/2025 12:15 AM EDT [facility] MCV 94 79 - 98 fL LAB HEMATOLOGY METHOD 06/18/2025 12:15 AM EDT [facility] MCH 32.1(H) 26.0 - 32.0 pg LAB HEMATOLOGY METHOD 06/18/2025 12:15 AM EDT [facility] MCHC 34.1 30.7 - 35.5 g/dL LAB HEMATOLOGY METHOD 06/18/2025 12:15 AM EDT [facility] RDW 16.2(H) 11.5 - 14.5 % LAB HEMATOLOGY METHOD 06/18/2025 12:15 AM EDT [facility] MPV 12.6(H) 8.8 - 12.5 fL LAB HEMATOLOGY METHOD 06/18/2025 12:15 AM EDT [facility] nRBC 0.2(H) <=0.0 per 100 WBCs LAB HEMATOLOGY METHOD 06/18/2025 12:15 AM EDT [facility] Blood Venous blood specimen / Unknown Venipuncture / Unknown 06/17/2025 11:58 PM EDT 06/18/2025 12:05 AM EDT us Dyllan Paul MD LAB BLOOD ORDERABLES Final Re sult Performing Organization Address City/[facility]/ZIP Co de Phone Number [facility] [address] [place] [address] * (ABNORMAL) Ammonia, Plasma (06/17/2025 11:58 PM EDT) Ammonia 55(H) 11 - 51 umol/L 06/18/2025 12:29 AM EDT [facility] Blood Venous blood specimen / Unknown Venipuncture / Unknown 06/17/2025 11:58 PM EDT 06/18/2025 12:04 AM EDT us Michelle Iniguez APRN LAB BLOOD ORDERABLES Final R esult Performing Organization Address City/[facility]/ZIP Co de Phone Number [facility] [address] [place] [address] * (ABNORMAL) POCT glucose meter (06/17/2025 5:41 [...] 06/17/2025 5:43 PM EDT [facility] Assembly Adjuster ID Lesia Booth 5:43 PM EDT HEALTHCARE LAB Device ID [id number] 06/17/2025 5:43 PM EDT HEALTHCARE LAB Specimen Type POC Capillary 06/17/2025 5:43 PM EDT [facility] LAB Blood Capillary blood specimen / Unknown 06/17/2025 5:41 PM EDT 06/17/2025 5:43 PM EDT Dyllan Paul MD LAB POINT OF CARE TE ST DOCKED DEVICE UNSOLICITED RESULTS Final Result [facility] [address] [place] [address] * (ABNORMAL) Blood gas panel, arterial (06/17/2025 3:55 PM EDT) pH, Arterial 7.45(H) 7.31 - 7.42 LAB HEMATOLOGY METHOD 06/17/2025 4:06 PM EDT [facility] pCO2, Arterial 37 32 - 45 mmHg LAB HEMATOLOGY METHOD 06/17/2025 4:06 PM EDT [facility] pO2, Arterial 82 >70 mmHg LAB HEMATOLOGY METHOD 06/17/2025 4:06 PM EDT [facility] SO2, Measured, Arterial 97 94 - 98 % LAB HEMATOLOGY METHOD 06/17/2025 4:06 PM EDT [facility] Base Excess, Arterial 1.7 -2.0 - 3.0 mmol/L LAB HEMATOLOGY METHOD 06/17/2025 4:06 PM EDT [facility] Bicarbonate, Calculated, Arterial 26 22 - 26 mmol/L LAB HEMATOLOGY METHOD 06/17/2025 4:06 PM EDT [facility] Hematocrit, Whole Blood 38.7(L) 40.0 - 51.0 % LAB HEMATOLOGY METHOD 06/17/2025 4:06 PM EDT [facility] Sodium, Whole Blood 148(H) 136 - 145 mmol/L LAB HEMATOLOGY METHOD 06/17/2025 4:06 PM EDT [facility] Potassium, Whole Blood 4.3 3.6 - 4.9 mmol/L LAB HEMATOLOGY METHOD 06/17/2025 4:06 PM EDT [facility] Chloride, Whole Blood 114(H) 97 - 107 mmol/L LAB HEMATOLOGY METHOD 06/17/2025 4:06 PM EDT [facility] Glucose, Whole Blood 177(H) 74 - 99 mg/dL LAB HEMATOLOGY METHOD 06/17/2025 4:06 PM EDT [facility] Ionized Calcium, Whole Blood 4.9 4.6 - 5.1 mg/dL LAB HEMATOLOGY METHOD 06/17/2025 4:06 PM EDT [facility] Lactate, Arterial, Whole Blood 1.9(H) 0.5 - 1.6 mmol/L LAB HEMATOLOGY METHOD 06/17/2025 4:06 PM EDT [facility] Blood Arterial blood specimen / Unknown Arterial Puncture / Unknown 06/17/2025 3:55 PM EDT 06/17/2025 4:02 PM EDT us Michelle Iniguez [employer] LAB BLOOD ORDERABLES Final R esult [facility] [address] [place] [address] * CT Head wo IV Contrast (06/17/2025 [...] MD on 06/17/2025 12:54 PM Lillian RODRIGUEZ IMBelinda CT PROCEDURES Final Res ult * (ABNORMAL) Blood gas panel, arterial (06/17/2025 11:44 AM EDT) pH, Arterial 7.47(H) 7.31 - 7.42 LAB HEMATOLOGY METHOD 06/17/2025 11:56 AM EDT [facility] pCO2, Arterial 37 32 - 45 mmHg LAB HEMATOLOGY METHOD 06/17/2025 11:56 AM EDT [facility] pO2, Arterial 80 >70 mmHg LAB HEMATOLOGY METHOD 06/17/2025 11:56 AM EDT [facility] SO2, Measured, Arterial 97 94 - 98 % LAB HEMATOLOGY METHOD 06/17/2025 11:56 AM EDT [facility] Base Excess, Arterial 3.3(H) -2.0 - 3.0 mmol/L LAB HEMATOLOGY METHOD 06/17/2025 11:56 AM EDT [facility] Bicarbonate, Calculated, Arterial 27(H) 22 - 26 mmol/L LAB HEMATOLOGY METHOD 06/17/2025 11:56 AM EDT [facility] Hematocrit, Whole Blood 35.9(L) 40.0 - 51.0 % LAB HEMATOLOGY METHOD 06/17/2025 11:56 AM EDT [facility] Sodium, Whole Blood 147(H) 136 - 145 mmol/L LAB HEMATOLOGY METHOD 06/17/2025 11:56 AM EDT [facility] Potassium, Whole Blood 3.6 3.6 - 4.9 mmol/L LAB HEMATOLOGY METHOD 06/17/2025 11:56 AM EDT [facility] Chloride, Whole Blood 112(H) 97 - 107 mmol/L LAB HEMATOLOGY METHOD 06/17/2025 11:56 AM EDT [facility] Glucose, Whole Blood 153(H) 74 - 99 mg/dL LAB HEMATOLOGY METHOD 06/17/2025 11:56 AM EDT [facility] Ionized Calcium, Whole Blood 4.9 4.6 - 5.1 mg/dL LAB HEMATOLOGY METHOD 06/17/2025 11:56 AM EDT [facility] Lactate, Arterial, Whole Blood 1.4 0.5 - 1.6 mmol/L LAB HEMATOLOGY METHOD 06/17/2025 11:56 AM EDT [facility] Blood Arterial blood specimen / Unknown Arterial Puncture / Unknown 06/17/2025 11:44 AM EDT 06/17/2025 11:54 AM EDT us Michelle Iniguez APRN LAB BLOOD ORDERABLES Final R esult [facility] [address] [place] [address] * (ABNORMAL) POCT glucose meter (06/17/2025 11:42 [...] Comment 06/17/2025 11:44 AM EDT [facility]ALTH[facility] LAB Assembly Adjuster ID Lesia Booth 11:44 AM EDT [facility] Device ID [id number] 06/17/2025 11:44 AM EDT [facility] Specimen Type POC Arterial 06/17/2025 11:44 AM EDT [facility] Blood Arterial blood specimen / Unknown 06/17/2025 11:42 AM EDT 06/17/2025 11:44 AM EDT us Dyllan Paul MD LAB POINT OF CARE TE ST DOCKED DEVICE UNSOLICITED RESULTS Final Result Performing Organization Address City/[facility]/ZIP Co de Phone Number [facility] [address] [place] [address] * (ABNORMAL) Ammonia, Plasma (06/17/2025 8:55 AM EDT) Pathologist [facility] Ammonia 89(H) 11 - 51 umol/L 06/17/2025 9:26 AM EDT [facility] Blood Venous blood specimen / Unknown Venipuncture / Unknown 06/17/2025 8:55 AM EDT 06/17/2025 9:01 AM EDT us Lillian RODRIGUEZ LAB BLOOD ORDERABLES Final Result [facility] [address] [place] [address] * (ABNORMAL) Blood gas panel, arterial (06/17/2025 8:55 AM EDT) Pathologist [facility] pH, Arterial 7.47(H) 7.31 - 7.42 LAB HEMATOLOGY METHOD 06/17/2025 9:05 AM EDT [facility] pCO2, Arterial 37 32 - 45 mmHg LAB HEMATOLOGY METHOD 06/17/2025 9:05 AM EDT [facility] pO2, Arterial 89 >70 mmHg LAB HEMATOLOGY METHOD 06/17/2025 9:05 AM EDT [facility] SO2, Measured, Arterial 98 94 - 98 % LAB HEMATOLOGY METHOD 06/17/2025 9:05 AM EDT [facility] Base Excess, Arterial 3.5(H) -2.0 - 3.0 mmol/L LAB HEMATOLOGY METHOD 06/17/2025 9:05 AM EDT [facility] Bicarbonate, Calculated, Arterial 27(H) 22 - 26 mmol/L LAB HEMATOLOGY METHOD 06/17/2025 9:05 AM EDT [facility] Hematocrit, Whole Blood 37.1(L) 40.0 - 51.0 % LAB HEMATOLOGY METHOD 06/17/2025 9:05 AM EDT [facility] Sodium, Whole Blood 145 136 - 145 mmol/L LAB HEMATOLOGY METHOD 06/17/2025 9:05 AM EDT [facility] Potassium, Whole Blood 3.6 3.6 - 4.9 mmol/L LAB HEMATOLOGY METHOD 06/17/2025 9:05 AM EDT [facility] Chloride, Whole Blood 114(H) 97 - 107 mmol/L LAB HEMATOLOGY METHOD 06/17/2025 9:05 AM EDT [facility] Glucose, Whole Blood 154(H) 74 - 99 mg/dL LAB HEMATOLOGY METHOD 06/17/2025 9:05 AM EDT [facility] Ionized Calcium, Whole Blood 4.9 4.6 - 5.1 mg/dL LAB HEMATOLOGY METHOD 06/17/2025 9:05 AM EDT [facility] Lactate, Arterial, Whole Blood 1.4 0.5 - 1.6 mmol/L LAB HEMATOLOGY METHOD 06/17/2025 9:05 AM EDT [facility] Blood Arterial blood specimen / Unknown Arterial Puncture / Unknown 06/17/2025 8:55 AM EDT 06/17/2025 9:02 AM EDT Michelle Iniguez APRN LAB BLOOD ORDERABLES Final R esult [facility] [address] [place] [address] * [facility], E/M 30-74 MINUTES (06/17/2025 8:36 [...] 06/17/2025 5:30 AM EDT [facility] Assembly Adjuster ID Nir Murcia 5:30 AM EDT [facility] Device ID [id number] 06/17/2025 5:30 AM EDT [facility] Specimen Type POC Capillary 06/17/2025 5:30 AM EDT [facility] Blood Capillary blood specimen / Unknown 06/17/2025 5:28 AM EDT 06/17/2025 5:30 AM EDT Dyllan Paul MD LAB POINT OF CARE TE ST DOCKED DEVICE UNSOLICITED RESULTS Final Result Performing Organization Address [facility] Co de Phone Number [facility] [address] [place] [address] * (ABNORMAL) Ammonia, Plasma (06/17/2025 3:30 AM EDT) Pathologist [facility] Ammonia 83(H) 11 - 51 umol/L 06/17/2025 4:04 AM EDT [facility] Comment:Improper specimen marquez ndling may falsely increase results. Blood Venous blood specimen / Unknown Venipuncture / Unknown 06/17/2025 3:30 AM EDT 06/17/2025 3:34 AM EDT us Michelle Iniguez APRN LAB BLOOD ORDERABLES Final R esult Performing Organization Address [facility] de Phone Number [facility] [address] [place] [address] * (ABNORMAL) Blood gas panel, arterial (06/17/2025 3:30 AM EDT) pH, Arterial 7.46(H) 7.31 - 7.42 LAB HEMATOLOGY METHOD 06/17/2025 3:36 AM EDT [facility] pCO2, Arterial 38 32 - 45 mmHg LAB HEMATOLOGY METHOD 06/17/2025 3:36 AM EDT [facility] pO2, Arterial 123 >70 mmHg LAB HEMATOLOGY METHOD 06/17/2025 3:36 AM EDT [facility] SO2, Measured, Arterial 100(H) 94 - 98 % LAB HEMATOLOGY METHOD 06/17/2025 3:36 AM EDT [facility] Base Excess, Arterial 2.9 -2.0 - 3.0 mmol/L LAB HEMATOLOGY METHOD 06/17/2025 3:36 AM EDT [facility] Bicarbonate, Calculated, Arterial 27(H) 22 - 26 mmol/L LAB HEMATOLOGY METHOD 06/17/2025 3:36 AM EDT [facility] Hematocrit, Whole Blood 36.8(L) 40.0 - 51.0 % LAB HEMATOLOGY METHOD 06/17/2025 3:36 AM EDT [facility] Sodium, Whole Blood 147(H) 136 - 145 mmol/L LAB HEMATOLOGY METHOD 06/17/2025 3:36 AM EDT [facility] Potassium, Whole Blood 3.5(L) 3.6 - 4.9 mmol/L LAB HEMATOLOGY METHOD 06/17/2025 3:36 AM EDT [facility] Chloride, Whole Blood 111(H) 97 - 107 mmol/L LAB HEMATOLOGY METHOD 06/17/2025 3:36 AM EDT [facility] Glucose, Whole Blood 187(H) 74 - 99 mg/dL LAB HEMATOLOGY METHOD 06/17/2025 3:36 AM EDT [facility] Ionized Calcium, Whole Blood 4.9 4.6 - 5.1 mg/dL LAB HEMATOLOGY METHOD 06/17/2025 3:36 AM EDT [facility] Lactate, Arterial, Whole Blood 1.7(H) 0.5 - 1.6 mmol/L LAB HEMATOLOGY METHOD 06/17/2025 3:36 AM EDT [facility] Blood Arterial blood specimen / Unknown Arterial Puncture / Unknown 06/17/2025 3:30 AM EDT 06/17/2025 3:34 AM EDT us Michelle Iniguez APRN LAB BLOOD ORDERABLES Final R esult [facility] [address] [place] [address] * (ABNORMAL) Free T4, Plasma (06/17/2025 12:24 AM EDT) Free T4, Plasma 0.7(L) 0.8 - 1.7 ng/dL 06/17/2025 8:59 AM EDT [facility] Blood Venous blood specimen / Unknown Venipuncture / Unknown 06/17/2025 12:24 AM EDT 06/17/2025 12:36 AM EDT Lillian RODRIGUEZ LAB BLOOD ORDERABLES Final Result Performing Organization Address [facility] Co de Phone Number [facility] [address] [place] [address] * Thyroid Stimulating Hormone, Plasma (06/17/2025 12:24 AM EDT) Thyroid Stimulating Hormone, Plasma 1.19 0.40 - 4.20 uIU/mL 06/17/2025 8:59 AM EDT [facility] Blood Venous blood specimen / Unknown Venipuncture / Unknown 06/17/2025 12:24 AM EDT 06/17/2025 12:36 AM EDT Lillian RODRIGUEZ LAB BLOOD ORDERABLES Final Result Performing Organization Address [facility] Phone Number [facility] [address] [place] [address] * (ABNORMAL) Blood gas panel, arterial (06/17/2025 12:24 AM EDT) pH, Arterial 7.46(H) 7.31 - 7.42 LAB HEMATOLOGY METHOD 06/17/2025 12:41 AM EDT [facility] pCO2, Arterial 39 32 - 45 mmHg LAB HEMATOLOGY METHOD 06/17/2025 12:41 AM EDT [facility] pO2, Arterial 90 >70 mmHg LAB HEMATOLOGY METHOD 06/17/2025 12:41 AM EDT [facility] SO2, Measured, Arterial 98 94 - 98 % LAB HEMATOLOGY METHOD 06/17/2025 12:41 AM EDT [facility] Base Excess, Arterial 3.3(H) -2.0 - 3.0 mmol/L LAB HEMATOLOGY METHOD 06/17/2025 12:41 AM EDT [facility] Bicarbonate, Calculated, Arterial 27(H) 22 - 26 mmol/L LAB HEMATOLOGY METHOD 06/17/2025 12:41 AM EDT [facility] Hematocrit, Whole Blood 36.5(L) 40.0 - 51.0 % LAB HEMATOLOGY METHOD 06/17/2025 12:41 AM EDT [facility] Sodium, Whole Blood 148(H) 136 - 145 mmol/L LAB HEMATOLOGY METHOD 06/17/2025 12:41 AM EDT [facility] Potassium, Whole Blood 3.7 3.6 - 4.9 mmol/L LAB HEMATOLOGY METHOD 06/17/2025 12:41 AM EDT [facility] Chloride, Whole Blood 112(H) 97 - 107 mmol/L LAB HEMATOLOGY METHOD 06/17/2025 12:41 AM EDT [facility] Glucose, Whole Blood 159(H) 74 - 99 mg/dL LAB HEMATOLOGY METHOD 06/17/2025 12:41 AM EDT [facility] Ionized Calcium, Whole Blood 4.8 4.6 - 5.1 mg/dL LAB HEMATOLOGY METHOD 06/17/2025 12:41 AM EDT [facility] Lactate, Arterial, Whole Blood 1.7(H) 0.5 - 1.6 mmol/L LAB HEMATOLOGY METHOD 06/17/2025 12:41 AM EDT [facility] Blood Arterial blood specimen / Unknown Arterial Puncture / Unknown 06/17/2025 12:24 AM EDT 06/17/2025 12:34 AM EDT us Michelle Iniguez APRN LAB BLOOD ORDERABLES Final R esult Performing Organization Address City/[facility]/ZIP Co de Phone Number [facility] [address] [place] [address] * Phosphorus (06/17/2025 12:24 AM EDT) Phosphorus, Plasma 2.7 2.5 - 4.5 mg/dL 06/17/2025 1:04 AM EDT [facility] Blood Venous blood specimen / Unknown Venipuncture / Unknown 06/17/2025 12:24 AM EDT 06/17/2025 12:36 AM EDT us Dyllan Paul MD LAB BLOOD ORDERABLES Final Re sult Performing Organization Address City/[facility]/ZIP Co de Phone Number [facility] [address] [place] [address] * Magnesium (06/17/2025 12:24 AM EDT) Magnesium, Plasma 2.3 1.9 - 2.4 mg/dL 06/17/2025 1:04 AM EDT [facility] Blood Venous blood specimen / Unknown Venipuncture / Unknown 06/17/2025 12:24 AM EDT 06/17/2025 12:36 AM EDT us Dyllan Paul MD LAB BLOOD ORDERABLES Final Re sult [facility] [address] [place] [address] * (ABNORMAL) Basic metabolic panel (06/17/2025 12:24 AM EDT) Glucose, Plasma 163(H) 74 - 99 mg/dL 06/17/2025 1:04 AM EDT [facility] BUN, Plasma 51(H) 8 - 23 mg/dL 06/17/2025 1:04 AM EDT [facility] Creatinine, Plasma 1.37(H) 0.70 - 1.20 mg/dL 06/17/2025 1:04 AM EDT [facility] BUN/Creatinine Ratio 37 06/17/2025 1:04 AM EDT [facility] Sodium, Plasma 146(H) 136 - 145 mmol/L 06/17/2025 1:04 AM EDT [facility] Potassium, Plasma 4.1 3.6 - 4.9 mmol/L 06/17/2025 1:04 AM EDT [facility] Chloride, Plasma 112(H) 97 - 107 mmol/L 06/17/2025 1:04 AM EDT [facility] CO2, Plasma 24 22 - 29 mmol/L 06/17/2025 1:04 AM EDT [facility] Anion Gap 10 6 - 16 mmol/L 06/17/2025 1:04 AM EDT [facility] Total Calcium, Plasma 8.7(L) 8.9 - 10.2 mg/dL 06/17/2025 1:04 AM EDT [facility] eGFRcr 55.5 mL/min/1.7 3m*2 06/17/2025 1:04 AM EDT [facility] Comment:Reported eGFRcr in m L/min/1.73m2 is based the CKD-EPI 2020 equation that does not use a race coefficient. Blood Venous blood specimen / Unknown Venipuncture / Unknown 06/17/2025 12:24 AM EDT 06/17/2025 12:36 AM EDT us Dyllan Paul MD LAB BLOOD ORDERABLES Final Re sult [facility] [address] [place] [address] * (ABNORMAL) Hemogram (CBC) (06/17/2025 12:24 AM EDT) WBC Count 13.51(H) 3.70 - 10.30 10*3/uL LAB HEMATOLOGY METHOD 06/17/2025 12:45 AM EDT [facility] RBC Count 3.70(L) 4.60 - 6.10 10*6/uL LAB HEMATOLOGY METHOD 06/17/2025 12:45 AM EDT [facility] HGB 12.1(L) 13.7 - 17.5 g/dL LAB HEMATOLOGY METHOD 06/17/2025 12:45 AM EDT [facility] HCT 34.3(L) 40.0 - 51.0 % LAB HEMATOLOGY METHOD 06/17/2025 12:45 AM EDT [facility] Platelet Count 99(L) 155 - 369 10*3/uL LAB HEMATOLOGY METHOD 06/17/2025 12:45 AM EDT [facility] MCV 93 79 - 98 fL LAB HEMATOLOGY METHOD 06/17/2025 12:45 AM EDT [facility] MCH 32.7(H) 26.0 - 32.0 pg LAB HEMATOLOGY METHOD 06/17/2025 12:45 AM EDT [facility] MCHC 35.3 30.7 - 35.5 g/dL LAB HEMATOLOGY METHOD 06/17/2025 12:45 AM EDT [facility] RDW 15.8(H) 11.5 - 14.5 % LAB HEMATOLOGY METHOD 06/17/2025 12:45 AM EDT [facility] MPV 12.8(H) 8.8 - 12.5 fL LAB HEMATOLOGY METHOD 06/17/2025 12:45 AM EDT [facility] nRBC 0.1(H) <=0.0 per 100 WBCs LAB HEMATOLOGY METHOD 06/17/2025 12:45 AM EDT [facility] Blood Venous blood specimen / Unknown Venipuncture / Unknown 06/17/2025 12:24 AM EDT 06/17/2025 12:38 AM EDT Dyllan Paul MD LAB BLOOD ORDERABLES Final Re sult Performing Organization Address City/[facility] Co de Phone Number [facility] [address] [place] [address] * (ABNORMAL) POCT glucose meter (06/17/2025 12:15 AM EDT) POCT Glucose 151(H) 74 - 99 mg/dL 06/17/2025 12:17 AM EDT [facility] Comment:Accuracy of a glucos e result [...] Comment 06/17/2025 12:17 AM EDT [facility] Assembly Adjuster ID Nir Murcia 12:17 AM EDT [facility] Device ID [id number] 06/17/2025 12:17 AM EDT [facility] Specimen Type POC Capillary 06/17/2025 12:17 AM EDT [facility] Blood Capillary blood specimen / Unknown 06/17/2025 12:15 AM EDT 06/17/2025 12:17 AM EDT us Dyllan Paul MD LAB POINT OF CARE TE ST DOCKED DEVICE UNSOLICITED RESULTS Final Result Performing Organization Address City/[facility]/ZIP Co de Phone Number [facility] [address] [place] [address] * (ABNORMAL) Blood gas panel, arterial (06/16/2025 8:32 PM EDT) pH, Arterial 7.48(H) 7.31 - 7.42 LAB HEMATOLOGY METHOD 06/16/2025 8:39 PM EDT [facility] pCO2, Arterial 37 32 - 45 mmHg LAB HEMATOLOGY METHOD 06/16/2025 8:39 PM EDT [facility] pO2, Arterial 99 >70 mmHg LAB HEMATOLOGY METHOD 06/16/2025 8:39 PM EDT [facility] SO2, Measured, Arterial 99(H) 94 - 98 % LAB HEMATOLOGY METHOD 06/16/2025 8:39 PM EDT [facility] Base Excess, Arterial 4.0(H) -2.0 - 3.0 mmol/L LAB HEMATOLOGY METHOD 06/16/2025 8:39 PM EDT [facility] Bicarbonate, Calculated, Arterial 28(H) 22 - 26 mmol/L LAB HEMATOLOGY METHOD 06/16/2025 8:39 PM EDT [facility] Hematocrit, Whole Blood 36.1(L) 40.0 - 51.0 % LAB HEMATOLOGY METHOD 06/16/2025 8:39 PM EDT [facility] Sodium, Whole Blood 145 136 - 145 mmol/L LAB HEMATOLOGY METHOD 06/16/2025 8:39 PM EDT [facility] Potassium, Whole Blood 3.4(L) 3.6 - 4.9 mmol/L LAB HEMATOLOGY METHOD 06/16/2025 8:39 PM EDT [facility] Chloride, Whole Blood 110(H) 97 - 107 mmol/L LAB HEMATOLOGY METHOD 06/16/2025 8:39 PM EDT [facility] Glucose, Whole Blood 171(H) 74 - 99 mg/dL LAB HEMATOLOGY METHOD 06/16/2025 8:39 PM EDT [facility] Ionized Calcium, Whole Blood 4.7 4.6 - 5.1 mg/dL LAB HEMATOLOGY METHOD 06/16/2025 8:39 PM EDT [facility] Lactate, Arterial, Whole Blood 1.5 0.5 - 1.6 mmol/L LAB HEMATOLOGY METHOD 06/16/2025 8:39 PM EDT [facility] Blood Arterial blood specimen / Unknown Arterial Puncture / Unknown 06/16/2025 8:32 PM EDT 06/16/2025 8:36 PM EDT us Michelle Iniguez APRN LAB BLOOD ORDERABLES Final R esult Performing Organization Address City/[facility]/ZIP Co de Phone Number [facility] [address] [place] [address] * (ABNORMAL) POCT glucose meter (06/16/2025 5:31 [...] Comment 06/16/2025 5:33 PM EDT [facility] Assembly Adjuster ID Agatha Dasilva 06/16/2025 5:33 PM EDT [facility] Device ID [id number] 06/16/2025 5:33 PM EDT [facility] Specimen Type POC Arterial 06/16/2025 5:33 PM EDT [facility] Blood Arterial blood specimen / Unknown 06/16/2025 5:31 PM EDT 06/16/2025 5:33 PM EDT us Dyllan Paul MD LAB POINT OF CARE TE ST DOCKED DEVICE UNSOLICITED RESULTS Final Result Performing Organization Address City/[facility]/ZIP Co de Phone Number [facility] [address] [place] [address] * (ABNORMAL) Ammonia, Plasma (06/16/2025 5:21 PM EDT) Pathologist [facility] Ammonia 135(H) 11 - 51 umol/L 06/16/2025 6:06 PM EDT [facility] Blood Venous blood specimen / Unknown Venipuncture / Unknown 06/16/2025 5:21 PM EDT 06/16/2025 5:30 PM EDT us Michelle Iniguez [employer] ENGINE[employer] LAB BLOOD ORDERABLES Final R esult [facility] [address] [place] [address] * (ABNORMAL) Comprehensive metabolic panel (06/16/2025 5:21 PM EDT) Glucose, Plasma 189(H) 74 - 99 mg/dL 06/16/2025 6:13 PM EDT [facility] BUN, Plasma 53(H) 8 - 23 mg/dL 06/16/2025 6:13 PM EDT [facility] Creatinine, Plasma 1.39(H) 0.70 - 1.20 mg/dL 06/16/2025 6:13 PM EDT [facility] BUN/Creatinine Ratio 38 06/16/2025 6:13 PM EDT [facility] Sodium, Plasma 145 136 - 145 mmol/L 06/16/2025 6:13 PM EDT [facility] Potassium, Plasma 3.6 3.6 - 4.9 mmol/L 06/16/2025 6:13 PM EDT [facility] Chloride, Plasma 111(H) 97 - 107 mmol/L 06/16/2025 6:13 PM EDT [facility] CO2, Plasma 24 22 - 29 mmol/L 06/16/2025 6:13 PM EDT [facility] Anion Gap 10 6 - 16 mmol/L 06/16/2025 6:13 PM EDT [facility] Total Calcium, Plasma 8.5(L) 8.9 - 10.2 mg/dL 06/16/2025 6:13 PM EDT [facility] Total Protein 4.7(L) 6.3 - 7.9 g/dL 06/16/2025 6:13 PM EDT [facility] Albumin, Plasma 2.7(L) 3.5 - 5.2 g/dL 06/16/2025 6:13 PM EDT [facility] AST, Plasma 48 10 - 50 U/L 06/16/2025 6:13 PM EDT [facility] ALT, Plasma 24 10 - 50 U/L 06/16/2025 6:13 PM EDT [facility] Alkaline Phosphatase, Plasma 159(H) 40 - 115 U/L 06/16/2025 6:13 PM EDT [facility] Total Bilirubin, Plasma 2.8(H) 0.2 - 1.1 mg/dL 06/16/2025 6:13 PM EDT [facility] eGFRcr 54.5 mL/min/1.7 3m*2 06/16/2025 6:13 PM EDT [facility] Comment:Reported eGFRcr in m L/min/1.73m2 is based the CKD-EPI 2020 equation that does not use a race coefficient. Blood Venous blood specimen / Unknown Venipuncture / Unknown 06/16/2025 5:21 PM EDT 06/16/2025 5:41 PM EDT us Michelle Iniguez APRN LAB BLOOD ORDERABLES Final R esult [facility] [address] [place] [address] * (ABNORMAL) Blood gas panel, arterial (06/16/2025 5:20 PM EDT) pH, Arterial 7.47(H) 7.31 - 7.42 LAB HEMATOLOGY METHOD 06/16/2025 5:45 PM EDT [facility] pCO2, Arterial 37 32 - 45 mmHg LAB HEMATOLOGY METHOD 06/16/2025 5:45 PM EDT [facility] pO2, Arterial 66(L) >70 mmHg LAB HEMATOLOGY METHOD 06/16/2025 5:45 PM EDT [facility] SO2, Measured, Arterial 94 94 - 98 % LAB HEMATOLOGY METHOD 06/16/2025 5:45 PM EDT [facility] Base Excess, Arterial 3.2(H) -2.0 - 3.0 mmol/L LAB HEMATOLOGY METHOD 06/16/2025 5:45 PM EDT [facility] Bicarbonate, Calculated, Arterial 27(H) 22 - 26 mmol/L LAB HEMATOLOGY METHOD 06/16/2025 5:45 PM EDT [facility] Hematocrit, Whole Blood 36.2(L) 40.0 - 51.0 % LAB HEMATOLOGY METHOD 06/16/2025 5:45 PM EDT [facility] Sodium, Whole Blood 142 136 - 145 mmol/L LAB HEMATOLOGY METHOD 06/16/2025 5:45 PM EDT [facility] Potassium, Whole Blood 3.4(L) 3.6 - 4.9 mmol/L LAB HEMATOLOGY METHOD 06/16/2025 5:45 PM EDT [facility] Chloride, Whole Blood 111(H) 97 - 107 mmol/L LAB HEMATOLOGY METHOD 06/16/2025 5:45 PM EDT [facility] Glucose, Whole Blood 185(H) 74 - 99 mg/dL LAB HEMATOLOGY METHOD 06/16/2025 5:45 PM EDT [facility] Ionized Calcium, Whole Blood 4.8 4.6 - 5.1 mg/dL LAB HEMATOLOGY METHOD 06/16/2025 5:45 PM EDT [facility] Lactate, Arterial, Whole Blood 1.8(H) 0.5 - 1.6 mmol/L LAB HEMATOLOGY METHOD 06/16/2025 5:45 PM EDT [facility] Blood Arterial blood specimen / Unknown Arterial Puncture / Unknown 06/16/2025 5:20 PM EDT 06/16/2025 5:43 PM EDT Michelle Iniguez APRN LAB BLOOD ORDERABLES Final R esult [facility] [address] [place] [address] * (ABNORMAL) POCT glucose meter (06/16/2025 11:40 [...] Comment 06/16/2025 11:42 AM EDT [facility] Assembly Adjuster ID Agatha Dasilva 06/16/2025 11:42 AM EDT [facility]ALTH[facility] LAB Device ID [id number] 06/16/2025 11:42 AM EDT [facility] Specimen Type POC Arterial 06/16/2025 11:42 AM EDT [facility] Blood Arterial blood specimen / Unknown 06/16/2025 11:40 AM EDT 06/16/2025 11:42 AM EDT us Dyllan Paul MD LAB POINT OF CARE TE ST DOCKED DEVICE UNSOLICITED RESULTS Final Result [facility] [address] [place] [address] * [place] [facility], E/M 30-74 MINUTES (06/16/2025 10:30 [...] mean PAP 34 mmHg CINTIA ISCV PA AK(ACCEL) 35.0 mmHg CINTIA ISCV PA acc slope [...] is no recent study available for direct [id number] comparison. Left Ventricle Based on the linear [...] is no recent study available for direct [id number] comparison. us Raymond Katz APRN CV ECHO PROCEDURES Final Resu lt * (ABNORMAL) POCT glucose meter (06/16/2025 8:09 AM EDT) POCT Glucose 161(H) 74 - 99 mg/dL 06/16/2025 8:11 AM EDT [facility] Comment:Accuracy of [...] for testing. Comment 06/16/2025 8:11 AM EDT [facility] Assembly Adjuster ID Agatha Dasilva 06/16/2025 8:11 AM EDT [facility] Device ID [id number] 06/16/2025 8:11 AM EDT [facility] LAB Specimen Type POC Arterial 06/16/2025 8:11 AM EDT [facility] Blood Arterial blood specimen / Unknown 06/16/2025 8:09 AM EDT 06/16/2025 8:11 AM EDT us Dyllan Paul MD LAB POINT OF CARE TE ST DOCKED DEVICE UNSOLICITED RESULTS Final Result [facility] [address] [place] [address] * Hemoglobin A1c (06/16/2025 4:24 AM EDT) Hemoglobin A1c 5.4 <5.7 % 06/16/2025 12:01 PM EDT [facility] Blood Venous blood specimen / Unknown Venipuncture / Unknown 06/16/2025 4:24 AM EDT 06/16/2025 4:31 AM EDT Narrative [facility] - 06/16/2025 12:01 PM EDT HA1C Interpretive Data: Diagnosis of Diabetes: Diabetic > or = 6.5% Pre-diabetic 5.7 to 6.4% Non-diabetic < or = 5.6% Glycemic Targets for Type I and Type II Diabetics: Non- Adults <7.0% Adults <6.0% Children and Adolescents <7.5% Source: [place] [employer]. Standards of medical care in diabetes,2017. Diabetes Care.2017:40 (suppl 1):S1-S135. us Lillian RODRIGUEZ LAB BLOOD ORDERABLES Final Result Performing Organization Address City/State/[facility] Co de Phone Number [facility] [address] [place] [address] * Triglycerides (06/16/2025 4:24 AM EDT) Triglycerides, Plasma 103 <150 mg/dL 06/16/2025 5:02 AM EDT [facility] Comment: Triglyceride Reference Range (age >17 years): Desirable: <150 mg/dL Borderline high: 150 to 199 mg/dL High: 200 to 499 mg/dL Very high: >499 mg/dL Increased risk of pancreatitis: >1000 mg/dL Fasting greater than or equal to 12 hours? No 06/16/2025 5:02 AM EDT [facility] Blood Venous blood specimen / Unknown Venipuncture / Unknown 06/16/2025 4:24 AM EDT 06/16/2025 4:34 AM EDT us Raymond Katz APRN LAB BLOOD ORDERABLES Final Re sult [facility] [address] [place] [address] * (ABNORMAL) Phosphorus (06/16/2025 4:24 AM EDT) Phosphorus, Plasma 1.5(L) 2.5 - 4.5 mg/dL 06/16/2025 5:02 AM EDT [facility] Blood Venous blood specimen / Unknown Venipuncture / Unknown 06/16/2025 4:24 AM EDT 06/16/2025 4:34 AM EDT us Dyllan Paul MD LAB BLOOD ORDERABLES Final Re [facility] Performing Organization Address [facility]/ZIP Co de Phone Number [facility] [address] [place] [address] * Magnesium (06/16/2025 4:24 AM EDT) Magnesium, Plasma 2.4 1.9 - 2.4 mg/dL 06/16/2025 5:02 AM EDT [facility] Blood Venous blood specimen / Unknown Venipuncture / Unknown 06/16/2025 4:24 AM EDT 06/16/2025 4:34 AM EDT us Dyllan Paul MD LAB BLOOD ORDERABLES Final Re [facility] Performing Organization Address [facility]/ZIP Co de Phone Number [facility] [address] [place] [address] * (ABNORMAL) Basic metabolic panel (06/16/2025 4:24 AM EDT) Glucose, Plasma 195(H) 74 - 99 mg/dL 06/16/2025 5:02 AM EDT [facility] BUN, Plasma 56(H) 8 - 23 mg/dL 06/16/2025 5:02 AM EDT [facility] Creatinine, Plasma 1.60(H) 0.70 - 1.20 mg/dL 06/16/2025 5:02 AM EDT [facility] BUN/Creatinine Ratio 35 06/16/2025 5:02 AM EDT [facility] Sodium, Plasma 142 136 - 145 mmol/L 06/16/2025 5:02 AM EDT [facility] Potassium, Plasma 3.1(L) 3.6 - 4.9 mmol/L 06/16/2025 5:02 AM EDT [facility] Chloride, Plasma 108(H) 97 - 107 mmol/L 06/16/2025 5:02 AM EDT [facility] CO2, Plasma 24 22 - 29 mmol/L 06/16/2025 5:02 AM EDT [facility] Anion Gap 10 6 - 16 mmol/L 06/16/2025 5:02 AM EDT [facility] Total Calcium, Plasma 8.5(L) 8.9 - 10.2 mg/dL 06/16/2025 5:02 AM EDT [facility] eGFRcr 46.1 mL/min/1.7 3m*2 06/16/2025 5:02 AM EDT [facility] Comment:Reported eGFRcr in m L/min/1.73m2 is based the CKD-EPI 2020 equation that does not use a race coefficient. Blood Venous blood specimen / Unknown Venipuncture / Unknown 06/16/2025 4:24 AM EDT 06/16/2025 4:34 AM EDT us Dyllan Paul MD LAB BLOOD ORDERABLES Final Re sult [facility] [address] [place] [address] * (ABNORMAL) Hemogram (CBC) (06/16/2025 4:24 AM EDT) WBC Count 12.74(H) 3.70 - 10.30 10*3/uL LAB HEMATOLOGY METHOD 06/16/2025 4:45 AM EDT [facility] RBC Count 3.66(L) 4.60 - 6.10 10*6/uL LAB HEMATOLOGY METHOD 06/16/2025 4:45 AM EDT [facility] HGB 11.8(L) 13.7 - 17.5 g/dL LAB HEMATOLOGY METHOD 06/16/2025 4:45 AM EDT [facility] HCT 34.2(L) 40.0 - 51.0 % LAB HEMATOLOGY METHOD 06/16/2025 4:45 AM EDT [facility] Platelet Count 67(L) 155 - 369 10*3/uL LAB HEMATOLOGY METHOD 06/16/2025 4:45 AM EDT [facility] MCV 93 79 - 98 fL LAB HEMATOLOGY METHOD 06/16/2025 4:45 AM EDT [facility] MCH 32.2(H) 26.0 - 32.0 pg LAB HEMATOLOGY METHOD 06/16/2025 4:45 AM EDT [facility] MCHC 34.5 30.7 - 35.5 g/dL LAB HEMATOLOGY METHOD 06/16/2025 4:45 AM EDT [facility] RDW 15.5(H) 11.5 - 14.5 % LAB HEMATOLOGY METHOD 06/16/2025 4:45 AM EDT [facility] MPV 12.7(H) 8.8 - 12.5 fL LAB HEMATOLOGY METHOD 06/16/2025 4:45 AM EDT [facility] nRBC 0.0 <=0.0 per 100 WBCs LAB HEMATOLOGY METHOD 06/16/2025 4:45 AM EDT [facility] Blood Venous blood specimen / Unknown Venipuncture / Unknown 06/16/2025 4:24 AM EDT 06/16/2025 4:31 AM EDT us Dyllan Paul MD LAB BLOOD ORDERABLES Final Re sult [facility] [address] [place] [address] * XR Chest 1 View (06/16/2025 4:23 [...] MD on 06/16/2025 8:36 AM Corry Doss MINES SAFETY ENGINEER, DNP IMG XR PROCEDURES Fi nal Result * Streptococcus pneumoniae and Legionella Urinary Antigen (06/15/2025 2:53 PM EDT) Legionella pneumophila serogroup 1 Antigen Result (Urine) Negative Negative 06/16/2025 6:33 AM EDT [facility] Streptococcus pneumoniae Antigen Result (Urine) Negative Negative 06/16/2025 6:33 AM EDT [facility] Urine Urine specimen obtained by clean catch procedure / Unknown Non-blood Collection / Unknown 06/15/2025 2:53 PM EDT 06/15/2025 3:17 PM EDT Corry Doss APRN, DNP LAB MICROBIOLOGY - G ENERAL ORDERABLES Final Result [facility] [address] [place] [address] * Mycoplasma Pneumoniae DNA By PCR (06/15/2025 2:49 PM EDT) Pathologist [facility] Mycoplasma pneumoniae Source aspirate 06/23/2025 9:22 PM EDT [facility] ([facility]) Mycoplasma pneumoniae by PCR Not Detected 06/23/2025 9:22 PM EDT [facility] ([facility]) Aspirate Non-blood Collection / Unknown 06/15/2025 2:49 PM EDT 06/15/2025 3:34 PM EDT Narrative [facility] ([facility]) - 06/23/2025 9:22 PM EDT NOT DETECTED - A negative result does not rule out the presence of PCR inhibitors in the patient specimen or assay specific nucleic acid in concentrations below the level of detection by the assay. INTERPRETIVE INFORMATION: Mycoplasma pneumoniae by PCR This test was developed and its performance characteristics determined by [facility]. It has not been cleared or approved by the [place] Food and Drug Administration. This test was performed in a CLIA certified laboratory and is intended for clinical purposes. Performed By: [facility] [address] [place] [address] E Mail System Administrator: Sotero Banuelos MD, PhD CLIA Number: [id number] Corry Doss APRN, DNP LAB REF LAB BLOOD AN D FLUID ORD Final Result Performing Organization Address City/[facility]/ZIP Co de Phone Number [facility] ([facility] [address] [place] [id number] * Nasopharyngeal Respiratory Panel (06/15/2025 2:47 PM EDT) [facility] Nasopharyngeal Respiratory PCR Interpretation Not Detected for all analytes Not Detected for all analytes 06/15/2025 5:19 PM EDT [facility] Swab Nasopharyngeal structure / Unknown Non-blood Collection / Unknown 06/15/2025 2:47 PM EDT 06/15/2025 3:18 PM EDT Narrative [facility] - 06/15/2025 5:19 PM EDT This [...] Respiratory PCR Panel is performed using the Queweylex instrument. This test is FDA approved for use with Nasopharyngeal swabs only. This test is used for clinical purposes. It should not be regarded as investigational or for research. The [facility] is certified under the Clinical Laboratory Improvement Amendments of 1988 (CLIA-88) as qualified to perform high complexity clinical laboratory testing. Corry Doss APRN, [facility] MICROBIOLOGY - [facility] ORDERABLES Final Result [facility] [address] [place] [address] * (ABNORMAL) Mycoplasma Pneumoniae Antibody, IgG & IgM (06/15/2025 2:42 PM EDT) Mycoplasma Pneumoniae Antibody IgM 0.11 <=0.76 U/L 06/19/2025 5:44 AM EDT [facility] ([facility]) Mycoplasma Pneumoniae Antibody IgG 0.20(H) <=0.09 U/L 06/19/2025 5:44 AM EDT [facility] ([facility]) Blood Arterial blood specimen / Unknown Arterial Puncture / Unknown 06/15/2025 2:42 PM EDT 06/15/2025 3:02 PM EDT Narrative [facility] ([email or web address]) - 06/19/2025 5:44 AM EDT INTERPRETIVE INFORMATION: [...] more than 12 months post-infection. Performed By: [facility] [address] [place] [address] E Mail System Administrator: Sotero Banuelos MD, PhD CLIA Number: [id number] Corry Doss APRN, [facility] LAB BLOOD ORDERABLES Final Result [facility] ([facility] [address] [place] [address] * (ABNORMAL) Blood gas panel, arterial (06/15/2025 11:39 AM EDT) pH, Arterial 7.47(H) 7.31 - 7.42 LAB HEMATOLOGY METHOD 06/15/2025 11:48 AM EDT [facility] pCO2, Arterial 35 32 - 45 mmHg LAB HEMATOLOGY METHOD 06/15/2025 11:48 AM EDT [facility] pO2, Arterial 57(LL) >70 mmHg LAB HEMATOLOGY METHOD 06/15/2025 11:48 AM EDT [facility] SO2, Measured, Arterial 91(L) 94 - 98 % LAB HEMATOLOGY METHOD 06/15/2025 11:48 AM EDT [facility] Base Excess, Arterial 1.7 -2.0 - 3.0 mmol/L LAB HEMATOLOGY METHOD 06/15/2025 11:48 AM EDT [facility] Bicarbonate, Calculated, Arterial 25 22 - 26 mmol/L LAB HEMATOLOGY METHOD 06/15/2025 11:48 AM EDT [facility] Hematocrit, Whole Blood 36.2(L) 40.0 - 51.0 % LAB HEMATOLOGY METHOD 06/15/2025 11:48 AM EDT [facility] Sodium, Whole Blood 139 136 - 145 mmol/L LAB HEMATOLOGY METHOD 06/15/2025 11:48 AM EDT [facility] Potassium, Whole Blood 3.1(L) 3.6 - 4.9 mmol/L LAB HEMATOLOGY METHOD 06/15/2025 11:48 AM EDT [facility] Chloride, Whole Blood 107 97 - 107 mmol/L LAB HEMATOLOGY METHOD 06/15/2025 11:48 AM EDT [facility] Glucose, Whole Blood 174(H) 74 - 99 mg/dL LAB HEMATOLOGY METHOD 06/15/2025 11:48 AM EDT [facility] Ionized Calcium, Whole Blood 4.6 4.6 - 5.1 mg/dL LAB HEMATOLOGY METHOD 06/15/2025 11:48 AM EDT [facility] Lactate, Arterial, Whole Blood 1.7(H) 0.5 - 1.6 mmol/L LAB HEMATOLOGY METHOD 06/15/2025 11:48 AM EDT [facility] Blood Arterial blood specimen / Unknown Arterial Puncture / Unknown 06/15/2025 11:39 AM EDT 06/15/2025 11:44 AM EDT us Roshan Haas MINES SAFETY ENGINEER, DNP LAB BLOOD ORDERABLES Fi nal Result [facility] [address] [place] [address] * Vancomycin, random (06/15/2025 11:38 AM EDT) Vancomycin, Random, Plasma 8.2 ug/mL 06/15/2025 12:18 PM EDT [facility] Blood Venous blood specimen / Unknown Venipuncture / Unknown 06/15/2025 11:38 AM EDT 06/15/2025 11:48 AM EDT Corry Doss APRN, DNP LAB BLOOD ORDERABLES Final Result [facility] [address] [place] [address] * [facility], E/M 30-74 MINUTES (06/15/2025 9:09 [...] LAB HEMATOLOGY METHOD 06/15/2025 6:27 AM EDT [facility] pCO2, Arterial 37 32 - 45 mmHg LAB HEMATOLOGY METHOD 06/15/2025 6:27 AM EDT [facility] pO2, Arterial 61(L) >70 mmHg LAB HEMATOLOGY METHOD 06/15/2025 6:27 AM EDT [facility] SO2, Measured, Arterial 92(L) 94 - 98 % LAB HEMATOLOGY METHOD 06/15/2025 6:27 AM EDT [facility] Base Excess, Arterial 1.9 -2.0 - 3.0 mmol/L LAB HEMATOLOGY METHOD 06/15/2025 6:27 AM EDT [facility] Bicarbonate, Calculated, Arterial 26 22 - 26 mmol/L LAB HEMATOLOGY METHOD 06/15/2025 6:27 AM EDT [facility] Hematocrit, Whole Blood 35.9(L) 40.0 - 51.0 % LAB HEMATOLOGY METHOD 06/15/2025 6:27 AM EDT [facility] Sodium, Whole Blood 138 136 - 145 mmol/L LAB HEMATOLOGY METHOD 06/15/2025 6:27 AM EDT [facility] Potassium, Whole Blood 3.3(L) 3.6 - 4.9 mmol/L LAB HEMATOLOGY METHOD 06/15/2025 6:27 AM EDT [facility] Chloride, Whole Blood 108(H) 97 - 107 mmol/L LAB HEMATOLOGY METHOD 06/15/2025 6:27 AM EDT [facility] Glucose, Whole Blood 173(H) 74 - 99 mg/dL LAB HEMATOLOGY METHOD 06/15/2025 6:27 AM EDT [facility] Ionized Calcium, Whole Blood 4.5(L) 4.6 - 5.1 mg/dL LAB HEMATOLOGY METHOD 06/15/2025 6:27 AM EDT [facility] Lactate, Arterial, Whole Blood 1.5 0.5 - 1.6 mmol/L LAB HEMATOLOGY METHOD 06/15/2025 6:27 AM EDT [facility] Blood Arterial blood specimen / Unknown Arterial Puncture / Unknown 06/15/2025 6:20 AM EDT 06/15/2025 6:25 AM EDT us Roshan Haas MINES SAFETY ENGINEER, DNP LAB BLOOD ORDERABLES Fi nal Result [facility] [address] [place] [address] * XR Chest 1 View (06/15/2025 6:12 [...] LAB HEMATOLOGY METHOD 06/15/2025 12:36 AM EDT [facility] pCO2, Arterial 38 32 - 45 mmHg LAB HEMATOLOGY METHOD 06/15/2025 12:36 AM EDT [facility] pO2, Arterial 65(L) >70 mmHg LAB HEMATOLOGY METHOD 06/15/2025 12:36 AM EDT [facility] SO2, Measured, Arterial 93(L) 94 - 98 % LAB HEMATOLOGY METHOD 06/15/2025 12:36 AM EDT [facility] Base Excess, Arterial 1.0 -2.0 - 3.0 mmol/L LAB HEMATOLOGY METHOD 06/15/2025 12:36 AM EDT [facility] Bicarbonate, Calculated, Arterial 25 22 - 26 mmol/L LAB HEMATOLOGY METHOD 06/15/2025 12:36 AM EDT [facility] Hematocrit, Whole Blood 34.9(L) 40.0 - 51.0 % LAB HEMATOLOGY METHOD 06/15/2025 12:36 AM EDT [facility] Sodium, Whole Blood 139 136 - 145 mmol/L LAB HEMATOLOGY METHOD 06/15/2025 12:36 AM EDT [facility] Potassium, Whole Blood 3.4(L) 3.6 - 4.9 mmol/L LAB HEMATOLOGY METHOD 06/15/2025 12:36 AM EDT [facility] Chloride, Whole Blood 106 97 - 107 mmol/L LAB HEMATOLOGY METHOD 06/15/2025 12:36 AM EDT [facility] Glucose, Whole Blood 173(H) 74 - 99 mg/dL LAB HEMATOLOGY METHOD 06/15/2025 12:36 AM EDT [facility] Ionized Calcium, Whole Blood 4.5(L) 4.6 - 5.1 mg/dL LAB HEMATOLOGY METHOD 06/15/2025 12:36 AM EDT [facility] Lactate, Arterial, Whole Blood 1.8(H) 0.5 - 1.6 mmol/L LAB HEMATOLOGY METHOD 06/15/2025 12:36 AM EDT [facility] Blood Arterial blood specimen / Unknown Arterial Puncture / Unknown 06/15/2025 12:25 AM EDT 06/15/2025 12:34 AM EDT us Roshan Haas MINES SAFETY ENGINEER, DNP LAB BLOOD ORDERABLES Fi nal Result [facility] [address] [place] [address] * Phosphorus (06/15/2025 12:25 AM EDT) Phosphorus, Plasma 3.2 2.5 - 4.5 mg/dL 06/15/2025 1:04 AM EDT [facility] Blood Arterial blood specimen / Unknown Venipuncture / Unknown 06/15/2025 12:25 AM EDT 06/15/2025 12:32 AM EDT Dyllan Paul MD LAB BLOOD ORDERABLES Final Re sult Performing Organization Address [facility]/ZIP Co de Phone Number [facility] [address] [place] [address] * Magnesium (06/15/2025 12:25 AM EDT) Magnesium, Plasma 2.3 1.9 - 2.4 mg/dL 06/15/2025 1:04 AM EDT [facility] Blood Arterial blood specimen / Unknown Venipuncture / Unknown 06/15/2025 12:25 AM EDT 06/15/2025 12:32 AM EDT Dyllan Paul MD LAB BLOOD ORDERABLES Final Re sult Performing Organization Address City/[facility]/ZIP Co de Phone Number [facility] [address] [place] [address] * (ABNORMAL) Basic metabolic panel (06/15/2025 12:25 AM EDT) Glucose, Plasma 168(H) 74 - 99 mg/dL 06/15/2025 1:04 AM EDT [facility] BUN, Plasma 58(H) 8 - 23 mg/dL 06/15/2025 1:04 AM EDT [facility] Creatinine, Plasma 2.18(H) 0.70 - 1.20 mg/dL 06/15/2025 1:04 AM EDT [facility] BUN/Creatinine Ratio 06/15/2025 1:04 AM EDT [facility] Sodium, Plasma 137 136 - 145 mmol/L 06/15/2025 1:04 AM EDT [facility] Potassium, Plasma 3.8 3.6 - 4.9 mmol/L 06/15/2025 1:04 AM EDT [facility] Chloride, Plasma 107 97 - 107 mmol/L 06/15/2025 1:04 AM EDT [facility] CO2, Plasma 23 22 - 29 mmol/L 06/15/2025 1:04 AM EDT [facility] Anion Gap 7 6 - 16 mmol/L 06/15/2025 1:04 AM EDT [facility] Total Calcium, Plasma 7.9(L) 8.9 - 10.2 mg/dL 06/15/2025 1:04 AM EDT [facility] eGFRcr 31.8 mL/min/1.7 3m*2 06/15/2025 1:04 AM EDT [facility] Comment:Reported eGFRcr in m L/min/1.73m2 is based the CKD-EPI 2020 equation that does not use a race coefficient. Blood Arterial blood specimen / Unknown Venipuncture / Unknown 06/15/2025 12:25 AM EDT 06/15/2025 12:32 AM EDT Dyllan Paul MD LAB BLOOD ORDERABLES Final Re sult [facility] [address] [place] [address] * (ABNORMAL) Hemogram (CBC) (06/15/2025 12:25 AM EDT) WBC Count 15.49(H) 3.70 - 10.30 10*3/uL LAB HEMATOLOGY METHOD 06/15/2025 12:43 AM EDT [facility] RBC Count 3.57(L) 4.60 - 6.10 10*6/uL LAB HEMATOLOGY METHOD 06/15/2025 12:43 AM EDT [facility] HGB 11.6(L) 13.7 - 17.5 g/dL LAB HEMATOLOGY METHOD 06/15/2025 12:43 AM EDT [facility] HCT 33.1(L) 40.0 - 51.0 % LAB HEMATOLOGY METHOD 06/15/2025 12:43 AM EDT [facility] Platelet Count 68(L) 155 - 369 10*3/uL LAB HEMATOLOGY METHOD 06/15/2025 12:43 AM EDT [facility] MCV 93 79 - 98 fL LAB HEMATOLOGY METHOD 06/15/2025 12:43 AM EDT [facility] MCH 32.5(H) 26.0 - 32.0 pg LAB HEMATOLOGY METHOD 06/15/2025 12:43 AM EDT [facility] MCHC 35.0 30.7 - 35.5 g/dL LAB HEMATOLOGY METHOD 06/15/2025 12:43 AM EDT [facility] RDW 15.6(H) 11.5 - 14.5 % LAB HEMATOLOGY METHOD 06/15/2025 12:43 AM EDT [facility] MPV 12.7(H) 8.8 - 12.5 fL LAB HEMATOLOGY METHOD 06/15/2025 12:43 AM EDT [facility] nRBC 0.0 <=0.0 per 100 WBCs LAB HEMATOLOGY METHOD 06/15/2025 12:43 AM EDT [facility] Blood Arterial blood specimen / Unknown Venipuncture / Unknown 06/15/2025 12:25 AM EDT 06/15/2025 12:34 AM EDT us Dyllan Paul MD LAB BLOOD ORDERABLES Final Re sult [facility] [address] [place] [address] * (ABNORMAL) Blood gas panel, arterial (06/14/2025 6:07 PM EDT) pH, Arterial 7.41 7.31 - 7.42 LAB HEMATOLOGY METHOD 06/14/2025 6:14 PM EDT [facility] pCO2, Arterial 40 32 - 45 mmHg LAB HEMATOLOGY METHOD 06/14/2025 6:14 PM EDT [facility] pO2, Arterial 55(LL) >70 mmHg LAB HEMATOLOGY METHOD 06/14/2025 6:14 PM EDT [facility] SO2, Measured, Arterial 88(L) 94 - 98 % LAB HEMATOLOGY METHOD 06/14/2025 6:14 PM EDT [facility] Base Excess, Arterial 0.4 -2.0 - 3.0 mmol/L LAB HEMATOLOGY METHOD 06/14/2025 6:14 PM EDT [facility] Bicarbonate, Calculated, Arterial 25 22 - 26 mmol/L LAB HEMATOLOGY METHOD 06/14/2025 6:14 PM EDT [facility] Hematocrit, Whole Blood 36.1(L) 40.0 - 51.0 % LAB HEMATOLOGY METHOD 06/14/2025 6:14 PM EDT [facility] Sodium, Whole Blood 138 136 - 145 mmol/L LAB HEMATOLOGY METHOD 06/14/2025 6:14 PM EDT [facility] Potassium, Whole Blood 3.7 3.6 - 4.9 mmol/L LAB HEMATOLOGY METHOD 06/14/2025 6:14 PM EDT [facility] Chloride, Whole Blood 106 97 - 107 mmol/L LAB HEMATOLOGY METHOD 06/14/2025 6:14 PM EDT [facility] Glucose, Whole Blood 160(H) 74 - 99 mg/dL LAB HEMATOLOGY METHOD 06/14/2025 6:14 PM EDT [facility] Ionized Calcium, Whole Blood 4.5(L) 4.6 - 5.1 mg/dL LAB HEMATOLOGY METHOD 06/14/2025 6:14 PM EDT [facility] Lactate, Arterial, Whole Blood 2.1(H) 0.5 - 1.6 mmol/L LAB HEMATOLOGY METHOD 06/14/2025 6:14 PM EDT [facility] Blood Arterial blood specimen / Unknown Arterial Line / Unknown 06/14/2025 6:07 PM EDT 06/14/2025 6:13 PM EDT us Roshan Haas MINES SAFETY ENGINEER, DNP LAB BLOOD ORDERABLES Fi nal Result [facility] [address] [place] [address] * (ABNORMAL) Blood gas panel, arterial (06/14/2025 12:09 PM EDT) pH, Arterial 7.39 7.31 - 7.42 LAB HEMATOLOGY METHOD 06/14/2025 12:20 PM EDT [facility] pCO2, Arterial 42 32 - 45 mmHg LAB HEMATOLOGY METHOD 06/14/2025 12:20 PM EDT [facility] pO2, Arterial 64(L) >70 mmHg LAB HEMATOLOGY METHOD 06/14/2025 12:20 PM EDT [facility] SO2, Measured, Arterial 92(L) 94 - 98 % LAB HEMATOLOGY METHOD 06/14/2025 12:20 PM EDT [facility] Base Excess, Arterial -0.2 -2.0 - 3.0 mmol/L LAB HEMATOLOGY METHOD 06/14/2025 12:20 PM EDT [facility] Bicarbonate, Calculated, Arterial 25 22 - 26 mmol/L LAB HEMATOLOGY METHOD 06/14/2025 12:20 PM EDT [facility] Hematocrit, Whole Blood 37.6(L) 40.0 - 51.0 % LAB HEMATOLOGY METHOD 06/14/2025 12:20 PM EDT [facility] Sodium, Whole Blood 137 136 - 145 mmol/L LAB HEMATOLOGY METHOD 06/14/2025 12:20 PM EDT [facility] Potassium, Whole Blood 3.9 3.6 - 4.9 mmol/L LAB HEMATOLOGY METHOD 06/14/2025 12:20 PM EDT [facility] Chloride, Whole Blood 107 97 - 107 mmol/L LAB HEMATOLOGY METHOD 06/14/2025 12:20 PM EDT [facility] Glucose, Whole Blood 143(H) 74 - 99 mg/dL LAB HEMATOLOGY METHOD 06/14/2025 12:20 PM EDT [facility] Ionized Calcium, Whole Blood 4.3(L) 4.6 - 5.1 mg/dL LAB HEMATOLOGY METHOD 06/14/2025 12:20 PM EDT [facility] Lactate, Arterial, Whole Blood 2.3(H) 0.5 - 1.6 mmol/L LAB HEMATOLOGY METHOD 06/14/2025 12:20 PM EDT [facility] Blood Arterial blood specimen / Unknown Arterial Line / Unknown 06/14/2025 12:09 PM EDT 06/14/2025 12:18 PM EDT us Roshan Haas APRN, DNP LAB BLOOD ORDERABLES Fi nal Result [facility] [facility] [address] [place] [address] * [place] CRITICAL CARE, E/M 30-74 MINUTES (06/14/2025 9:53 [...] APRN, DNP LAB URINE ORDERABLES Final Result [facility] [address] [place] [address] * (ABNORMAL) Urinalysis with reflex microscopic (Culture NOT Included) (06/14/2025 8:21 AM EDT) Color, Urine Red LAB URINALYSIS - AUTOMATED METHOD 06/14/2025 10:54 AM EDT [facility] Clarity, Urine Cloudy LAB URINALYSIS - AUTOMATED METHOD 06/14/2025 10:54 AM EDT [facility] Spec [place], Urine 1.019 1.005 - 1.030 LAB URINALYSIS - AUTOMATED METHOD 06/14/2025 10:54 AM EDT [facility] pH, Urine <=5.0(L) 5.0 - 8.0 LAB URINALYSIS - AUTOMATED METHOD 06/14/2025 10:54 AM EDT [facility] Protein, Urine 100(A) Negative mg/dL LAB URINALYSIS - AUTOMATED METHOD 06/14/2025 10:54 AM EDT [facility] Glucose, Urine Negative Negative mg/dL LAB URINALYSIS - AUTOMATED METHOD 06/14/2025 10:54 AM EDT [facility] Ketones, Urine Negative Negative mg/dL LAB URINALYSIS - AUTOMATED METHOD 06/14/2025 10:54 AM EDT [facility] Blood, Urine Moderate(A) Negative LAB URINALYSIS - AUTOMATED METHOD 06/14/2025 10:54 AM EDT [facility] Bilirubin, Urine Small(A) Negative LAB URINALYSIS - AUTOMATED METHOD 06/14/2025 10:54 AM EDT [facility] Urobilinogen, Urine 1.0 0.2 to 1.0 mg/dL LAB URINALYSIS - AUTOMATED METHOD 06/14/2025 10:54 AM EDT [facility] Leukocytes, Urine Moderate(A) Negative LAB URINALYSIS - AUTOMATED METHOD 06/14/2025 10:54 AM EDT [facility] Nitrite, Urine Positive(A) Negative LAB URINALYSIS - AUTOMATED METHOD 06/14/2025 10:54 AM EDT [facility] RBC, Urine >50(A) 0 to 3 /HPF 06/14/2025 10:54 AM EDT [facility] Comment:This result was prev iously suppressed from the chart. WBC, Urine Unable to estimate due to obscuring RBC's (UNERBC) 0 to 5 /HPF 06/14/2025 10:54 AM EDT [facility] Comment:This result was prev iously suppressed from the chart. Squamous Epithelial Cells Unable to estimate due to obscuring RBC's (UNERBC) 0 to 5 /HPF 06/14/2025 10:54 AM EDT [facility] Comment:This result was prev iously suppressed from the chart. Hyaline Casts Unable to estimate due to obscuring RBC's (UNERBC) 0 to 5 /LPF 06/14/2025 10:54 AM EDT [facility] Comment:This result was prev iously suppressed from the chart. Bacteria, Urine Unable to estimate due to obscuring RBC's (UNERBC) Negative 06/14/2025 10:54 AM EDT [facility] Comment:This result was prev iously suppressed from the chart. WBC Casts Present Absent 06/14/2025 10:54 AM EDT [facility] Comment:This result was prev iously suppressed from the chart. Red Cell/Hemoglob in Casts Present Absent 06/14/2025 10:54 AM EDT [facility] Comment:This result was prev iously suppressed from the chart. Urine Urine specimen from urinary conduit / Unknown Non-blood Collection / Unknown 06/14/2025 8:21 AM EDT 06/14/2025 8:44 AM EDT Narrative [facility] - 06/14/2025 10:54 AM EDT Urinalysis dipstick results may be inaccurate due to specimen color or an interfering substance in the specimen. Performed by manual method Corry Doss APRN, DNP LAB URINE ORDERABLES Final Result [facility] [address] [place] [address] * (ABNORMAL) Respiratory Culture and Gram Stain (06/14/2025 8:18 AM EDT) Culture Heavy Growth 06/17/2025 11:03 AM EDT [facility] Culture Mixed upper respiratory kelsi(A) 06/17/2025 11:03 AM EDT [facility] Comment:The organism value f or this result has been updated. These results have been appended to the previously preliminary verified report. Gram Stain Result Fewer than 10 Epithelial cells/LPF(A) 06/17/2025 11:03 AM EDT [facility] Gram Stain Result Greater than 25 WBC/LPF(A) 06/17/2025 11:03 AM EDT [facility] Gram Stain Result Numerous Gram negative rods(A) 06/17/2025 11:03 AM EDT [facility] Gram Stain Result Numerous Gram positive cocci in pairs and chains(A) 06/17/2025 11:03 AM EDT [facility] Gram Stain Result Moderate Gram positive cocci in clusters(A) 06/17/2025 11:03 AM EDT [facility] Aspirate Specimen from endotracheal tube / Unknown Non-blood Collection / Unknown 06/14/2025 8:18 AM EDT 06/14/2025 10:27 AM EDT us Corry Doss APRN, DNP LAB MICROBIOLOGY - G ENERAL ORDERABLES Final Result [facility] [address] [place] [address] * XR Abdomen 1 View (06/14/2025 8:18 [...] day 5 KEELY 06/19/2025 10:01 AM EDT [facility] Blood Upper arm part / Unknown Venipuncture / Unknown 06/14/2025 8:17 AM EDT 06/14/2025 8:59 AM EDT Corry Doss APRN, LUDMILA LAB MICROBIOLOGY - G ENERAL ORDERABLES Final Result Performing Organization Address [facility] Co de Phone Number [facility] [address] [place] [address] * (ABNORMAL) Procalcitonin, Plasma (06/14/2025 8:17 AM EDT) Procalcitonin, Plasma 1.99(H) <0.09 ng/mL 06/14/2025 9:20 AM EDT [facility] Blood Venous blood specimen / Unknown Venipuncture / Unknown 06/14/2025 8:17 AM EDT 06/14/2025 8:43 AM EDT Narrative [facility] - 06/14/2025 9:20 AM EDT Procalcitonin [...] predict 28 day mortality risk. Please consult [email or web address] for more information. Test performed at [facility]. us Corry Doss APRN, LUD[place]ILA LAB BLOOD ORDERABLES Final Result Performing Organization Address City/[facility]/ZIP Co de Phone Number [facility] [address] [place] [address] * (ABNORMAL) Blood gas panel, arterial (06/14/2025 5:30 AM EDT) [facility] Signature pH, Arterial 7.37 7.31 - 7.42 LAB HEMATOLOGY METHOD 06/14/2025 5:43 AM EDT [facility] pCO2, Arterial 43 32 - 45 mmHg LAB HEMATOLOGY METHOD 06/14/2025 5:43 AM EDT [facility] pO2, Arterial 58(LL) >70 mmHg LAB HEMATOLOGY METHOD 06/14/2025 5:43 AM EDT [facility] SO2, Measured, Arterial 88(L) 94 - 98 % LAB HEMATOLOGY METHOD 06/14/2025 5:43 AM EDT [facility] Base Excess, Arterial -0.4 -2.0 - 3.0 mmol/L LAB HEMATOLOGY METHOD 06/14/2025 5:43 AM EDT [facility] Bicarbonate, Calculated, Arterial 25 22 - 26 mmol/L LAB HEMATOLOGY METHOD 06/14/2025 5:43 AM EDT [facility] Hematocrit, Whole Blood 38.5(L) 40.0 - 51.0 % LAB HEMATOLOGY METHOD 06/14/2025 5:43 AM EDT [facility] Sodium, Whole Blood 138 136 - 145 mmol/L LAB HEMATOLOGY METHOD 06/14/2025 5:43 AM EDT [facility] Potassium, Whole Blood 4.1 3.6 - 4.9 mmol/L LAB HEMATOLOGY METHOD 06/14/2025 5:43 AM EDT [facility] Chloride, Whole Blood 106 97 - 107 mmol/L LAB HEMATOLOGY METHOD 06/14/2025 5:43 AM EDT [facility] Glucose, Whole Blood 141(H) 74 - 99 mg/dL LAB HEMATOLOGY METHOD 06/14/2025 5:43 AM EDT [facility] Ionized Calcium, Whole Blood 4.3(L) 4.6 - 5.1 mg/dL LAB HEMATOLOGY METHOD 06/14/2025 5:43 AM EDT [facility] Lactate, Arterial, Whole Blood 2.1(H) 0.5 - 1.6 mmol/L LAB HEMATOLOGY METHOD 06/14/2025 5:43 AM EDT [facility] Blood Arterial blood specimen / Unknown Arterial Puncture / Unknown 06/14/2025 5:30 AM EDT 06/14/2025 5:37 AM EDT us Roshan Haas APRN, DNP LAB BLOOD ORDERABLES Fi nal Result [facility] [address] [place] [address] * ECG Adult (06/14/2025 4:26 AM EDT) EKG DIAGNOSIS CLASS Abnormal MUSE ECG Ventricular Rate 109 BPM MUSE ECG Atrial Rate 109 BPM MUSE ECG AK Interval 152 ms MUSE ECG QRSD Interval 86 ms MUSE ECG QT Interval 336 ms MUSE ECG QTC Interval 452 ms MUSE ECG P [place] -6 degrees MUSE ECG R [place] -1 degrees MUSE ECG T Wave [place] 5 degrees MUSE ECG Diagnosis Sinus tachycardia MUSE ECG Diagnosis Poor R-wave progression and cannot rule out an anterior infarct. MUSE ECG Diagnosis Cannot rule out Inferior infarct , age undetermined MUSE ECG Diagnosis Nonspecific T wave abnormality MUSE ECG Diagnosis Abnormal ECG MUSE ECG Diagnosis MUSE ECG Diagnosis Confirmed by Evin Flynn ([id number]) on 06/14/2025 2:38:22 PM MUSE ECG 06/14/2025 4:26 AM EDT 06/14/2025 2:38 PM EDT Raymond Katz MIN[employer] SAFETY ENGINEER ECG ORDERABLES Final Result Performing Organization Address City/[facility] Co de Phone Number MUSE ECG * [...] MD on 06/14/2025 4:30 AM Raymond Katz MINES SAFETY ENGINEER IMG XR PROCEDURES Final Resul t * (ABNORMAL) Blood gas panel, arterial (06/14/2025 3:35 AM EDT) pH, Arterial 7.37 7.31 - 7.42 LAB HEMATOLOGY METHOD 06/14/2025 3:43 AM EDT [facility] pCO2, Arterial 43 32 - 45 mmHg LAB HEMATOLOGY METHOD 06/14/2025 3:43 AM EDT [facility] pO2, Arterial 64(L) >70 mmHg LAB HEMATOLOGY METHOD 06/14/2025 3:43 AM EDT [facility] SO2, Measured, Arterial 91(L) 94 - 98 % LAB HEMATOLOGY METHOD 06/14/2025 3:43 AM EDT [facility] Base Excess, Arterial -0.6 -2.0 - 3.0 mmol/L LAB HEMATOLOGY METHOD 06/14/2025 3:43 AM EDT [facility] Bicarbonate, Calculated, Arterial 25 22 - 26 mmol/L LAB HEMATOLOGY METHOD 06/14/2025 3:43 AM EDT [facility] Hematocrit, Whole Blood 38.2(L) 40.0 - 51.0 % LAB HEMATOLOGY METHOD 06/14/2025 3:43 AM EDT [facility] Sodium, Whole Blood 139 136 - 145 mmol/L LAB HEMATOLOGY METHOD 06/14/2025 3:43 AM EDT [facility] Potassium, Whole Blood 4.1 3.6 - 4.9 mmol/L LAB HEMATOLOGY METHOD 06/14/2025 3:43 AM EDT [facility] Chloride, Whole Blood 106 97 - 107 mmol/L LAB HEMATOLOGY METHOD 06/14/2025 3:43 AM EDT [facility] Glucose, Whole Blood 140(H) 74 - 99 mg/dL LAB HEMATOLOGY METHOD 06/14/2025 3:43 AM EDT [facility] Ionized Calcium, Whole Blood 4.4(L) 4.6 - 5.1 mg/dL LAB HEMATOLOGY METHOD 06/14/2025 3:43 AM EDT [facility] Lactate, Arterial, Whole Blood 2.0(H) 0.5 - 1.6 mmol/L LAB HEMATOLOGY METHOD 06/14/2025 3:43 AM EDT [facility] Blood Arterial blood specimen / Unknown Arterial Puncture / Unknown 06/14/2025 3:35 AM EDT 06/14/2025 3:41 AM EDT us Raymond Katz APRN LAB BLOOD ORDERABLES Final Re sult [facility] [address] [place] [address] * N-Terminal Probnp (06/14/2025 12:41 AM EDT) N-Terminal, PROBNP, Plasma 109 0 - 899 pg/mL 06/14/2025 4:32 AM EDT [facility] Blood Arterial blood specimen / Unknown Venipuncture / Unknown 06/14/2025 12:41 AM EDT 06/14/2025 12:47 AM EDT us Mando Michelle APRN LAB BLOOD ORDERABLES Final Result [facility] [address] [place] [address] * (ABNORMAL) Blood gas panel, arterial (06/14/2025 12:41 AM EDT) pH, Arterial 7.36 7.31 - 7.42 LAB HEMATOLOGY METHOD 06/14/2025 12:48 AM EDT [facility] pCO2, Arterial 44 32 - 45 mmHg LAB HEMATOLOGY METHOD 06/14/2025 12:48 AM EDT [facility] pO2, Arterial 84 >70 mmHg LAB HEMATOLOGY METHOD 06/14/2025 12:48 AM EDT [facility] SO2, Measured, Arterial 97 94 - 98 % LAB HEMATOLOGY METHOD 06/14/2025 12:48 AM EDT [facility] Base Excess, Arterial -0.8 -2.0 - 3.0 mmol/L LAB HEMATOLOGY METHOD 06/14/2025 12:48 AM EDT [facility] Bicarbonate, Calculated, Arterial 25 22 - 26 mmol/L LAB HEMATOLOGY METHOD 06/14/2025 12:48 AM EDT [facility] Hematocrit, Whole Blood 38.2(L) 40.0 - 51.0 % LAB HEMATOLOGY METHOD 06/14/2025 12:48 AM EDT [facility] Sodium, Whole Blood 140 136 - 145 mmol/L LAB HEMATOLOGY METHOD 06/14/2025 12:48 AM EDT [facility] Potassium, Whole Blood 4.2 3.6 - 4.9 mmol/L LAB HEMATOLOGY METHOD 06/14/2025 12:48 AM EDT [facility] Chloride, Whole Blood 106 97 - 107 mmol/L LAB HEMATOLOGY METHOD 06/14/2025 12:48 AM EDT [facility] Glucose, Whole Blood 143(H) 74 - 99 mg/dL LAB HEMATOLOGY METHOD 06/14/2025 12:48 AM EDT [facility] Ionized Calcium, Whole Blood 4.4(L) 4.6 - 5.1 mg/dL LAB HEMATOLOGY METHOD 06/14/2025 12:48 AM EDT [facility] Lactate, Arterial, Whole Blood 2.1(H) 0.5 - 1.6 mmol/L LAB HEMATOLOGY METHOD 06/14/2025 12:48 AM EDT [facility] Blood Arterial blood specimen / Unknown Arterial Puncture / Unknown 06/14/2025 12:41 AM EDT 06/14/2025 12:47 AM EDT Roshan Haas [employer] SAFET[employer] ENGINEER, DNP LAB BLOOD ORDERABLES Fi nal Result Performing Organization Address [facility]/ZIP Co de Phone Number [facility] [address] [place] [address] * (ABNORMAL) Phosphorus (06/14/2025 12:41 AM EDT) Phosphorus, Plasma 6.6(H) 2.5 - 4.5 mg/dL 06/14/2025 1:18 AM EDT [facility] Blood Arterial blood specimen / Unknown Venipuncture / Unknown 06/14/2025 12:41 AM EDT 06/14/2025 12:47 AM EDT Dyllan Paul MD LAB BLOOD ORDERABLES Final Re sult Performing Organization Address [facility]/ZIP Co de Phone Number [facility] [address] [place] [address] * Magnesium (06/14/2025 12:41 AM EDT) Magnesium, Plasma 2.4 1.9 - 2.4 mg/dL 06/14/2025 1:18 AM EDT [facility] Blood Arterial blood specimen / Unknown Venipuncture / Unknown 06/14/2025 12:41 AM EDT 06/14/2025 12:47 AM EDT Dyllan Paul MD LAB BLOOD ORDERABLES Final Re sult Performing Organization Address [facility]/ZIP Co de Phone Number [facility] [address] [place] [address] * (ABNORMAL) Basic metabolic panel (06/14/2025 12:41 AM EDT) Glucose, Plasma 144(H) 74 - 99 mg/dL 06/14/2025 1:18 AM EDT [facility] BUN, Plasma 41(H) 8 - 23 mg/dL 06/14/2025 1:18 AM EDT [facility] Creatinine, Plasma 2.36(H) 0.70 - 1.20 mg/dL 06/14/2025 1:18 AM EDT [facility] BUN/Creatinine Ratio 17 06/14/2025 1:18 AM EDT [facility] Sodium, Plasma 141 136 - 145 mmol/L 06/14/2025 1:18 AM EDT [facility] Potassium, Plasma 4.8 3.6 - 4.9 mmol/L 06/14/2025 1:18 AM EDT [facility] Chloride, Plasma 107 97 - 107 mmol/L 06/14/2025 1:18 AM EDT [facility] CO2, Plasma 23 22 - 29 mmol/L 06/14/2025 1:18 AM EDT [facility] Anion Gap 11 6 - 16 mmol/L 06/14/2025 1:18 AM EDT [facility] Total Calcium, Plasma 7.9(L) 8.9 - 10.2 mg/dL 06/14/2025 1:18 AM EDT [facility] eGFRcr 28.9 mL/min/1.7 3m*2 06/14/2025 1:18 AM EDT [facility] Comment:Reported eGFRcr in m L/min/1.73m2 is based the CKD-EPI 2020 equation that does not use a race coefficient. Blood Arterial blood specimen / Unknown Venipuncture / Unknown 06/14/2025 12:41 AM EDT 06/14/2025 12:47 AM EDT us Dyllan Paul MD LAB BLOOD ORDERABLES Final Re sult [facility] [address] [place] [address] * (ABNORMAL) Hemogram (CBC) (06/14/2025 12:41 AM EDT) WBC Count 21.40(H) 3.70 - 10.30 10*3/uL LAB HEMATOLOGY METHOD 06/14/2025 12:56 AM EDT [facility] RBC Count 3.84(L) 4.60 - 6.10 10*6/uL LAB HEMATOLOGY METHOD 06/14/2025 12:56 AM EDT [facility] HGB 12.4(L) 13.7 - 17.5 g/dL LAB HEMATOLOGY METHOD 06/14/2025 12:56 AM EDT [facility] HCT 36.0(L) 40.0 - 51.0 % LAB HEMATOLOGY METHOD 06/14/2025 12:56 AM EDT [facility] Platelet Count 86(L) 155 - 369 10*3/uL LAB HEMATOLOGY METHOD 06/14/2025 12:56 AM EDT [facility] MCV 94 79 - 98 fL LAB HEMATOLOGY METHOD 06/14/2025 12:56 AM EDT [facility] MCH 32.3(H) 26.0 - 32.0 pg LAB HEMATOLOGY METHOD 06/14/2025 12:56 AM EDT [facility] MCHC 34.4 30.7 - 35.5 g/dL LAB HEMATOLOGY METHOD 06/14/2025 12:56 AM EDT [facility] RDW 16.1(H) 11.5 - 14.5 % LAB HEMATOLOGY METHOD 06/14/2025 12:56 AM EDT [facility] MPV 12.9(H) 8.8 - 12.5 fL LAB HEMATOLOGY METHOD 06/14/2025 12:56 AM EDT [facility] nRBC 0.0 <=0.0 per 100 WBCs LAB HEMATOLOGY METHOD 06/14/2025 12:56 AM EDT [facility] Blood Arterial blood specimen / Unknown Venipuncture / Unknown 06/14/2025 12:41 AM EDT 06/14/2025 12:47 AM EDT us Dyllan Paul MD LAB BLOOD ORDERABLES Final Re sult [facility] [address] [place] [address] * (ABNORMAL) Blood gas panel, arterial (06/13/2025 5:13 PM EDT) pH, Arterial 7.34 7.31 - 7.42 LAB HEMATOLOGY METHOD 06/13/2025 5:20 PM EDT [facility] pCO2, Arterial 47(H) 32 - 45 mmHg LAB HEMATOLOGY METHOD 06/13/2025 5:20 PM EDT [facility] pO2, Arterial 72 >70 mmHg LAB HEMATOLOGY METHOD 06/13/2025 5:20 PM EDT [facility] SO2, Measured, Arterial 94 94 - 98 % LAB HEMATOLOGY METHOD 06/13/2025 5:20 PM EDT [facility] Base Excess, Arterial -1.1 -2.0 - 3.0 mmol/L LAB HEMATOLOGY METHOD 06/13/2025 5:20 PM EDT [facility] Bicarbonate, Calculated, Arterial 25 22 - 26 mmol/L LAB HEMATOLOGY METHOD 06/13/2025 5:20 PM EDT [facility] Hematocrit, Whole Blood 38.3(L) 40.0 - 51.0 % LAB HEMATOLOGY METHOD 06/13/2025 5:20 PM EDT [facility] Sodium, Whole Blood 139 136 - 145 mmol/L LAB HEMATOLOGY METHOD 06/13/2025 5:20 PM EDT [facility] Potassium, Whole Blood 4.0 3.6 - 4.9 mmol/L LAB HEMATOLOGY METHOD 06/13/2025 5:20 PM EDT [facility] Chloride, Whole Blood 107 97 - 107 mmol/L LAB HEMATOLOGY METHOD 06/13/2025 5:20 PM EDT [facility] Glucose, Whole Blood 143(H) 74 - 99 mg/dL LAB HEMATOLOGY METHOD 06/13/2025 5:20 PM EDT [facility] Ionized Calcium, Whole Blood 4.4(L) 4.6 - 5.1 mg/dL LAB HEMATOLOGY METHOD 06/13/2025 5:20 PM EDT [facility] Lactate, Arterial, Whole Blood 2.0(H) 0.5 - 1.6 mmol/L LAB HEMATOLOGY METHOD 06/13/2025 5:20 PM EDT [facility] Blood Arterial blood specimen / Unknown Arterial Puncture / Unknown 06/13/2025 5:13 PM EDT 06/13/2025 5:19 PM EDT us Roshan M Wells [employer] S[employer] ENGINEER, DNP LAB BLOOD ORDERABLES Fi nal Result Performing Organization Address City/[facility]/ZIP Co de Phone Number [facility] [address] [place] [address] * Ionized calcium, whole blood (06/13/2025 3:35 PM EDT) Ionized Calcium, Whole Blood 4.6 4.6 - 5.1 mg/dL LAB HEMATOLOGY METHOD 06/13/2025 4:00 PM EDT [facility] Blood Venous blood specimen / Unknown Venipuncture / Unknown 06/13/2025 3:35 PM EDT 06/13/2025 3:57 PM EDT Roshan Haas APRN, LUD[place]ILA LAB BLOOD ORDERABLES Fi nal Result Performing Organization Address City/[facility] Co de Phone Number [facility] [address] [place] [address] * Magnesium, Plasma (06/13/2025 3:35 PM EDT) Magnesium, Plasma 2.3 1.9 - 2.4 mg/dL 06/13/2025 4:23 PM EDT [facility] Blood Venous blood specimen / Unknown Venipuncture / Unknown 06/13/2025 3:35 PM EDT 06/13/2025 3:51 PM EDT Roshan Haas APRN, DNP LAB BLOOD ORDERABLES Fi nal Result Performing Organization Address City/[facility]/ZIP Co de Phone Number [facility] [address] [place] [address] * (ABNORMAL) Renal function panel (06/13/2025 3:35 PM EDT) Glucose, Plasma 148(H) 74 - 99 mg/dL 06/13/2025 4:23 PM EDT [facility] BUN, Plasma 31(H) 8 - 23 mg/dL 06/13/2025 4:23 PM EDT [facility] Creatinine, Plasma 2.02(H) 0.70 - 1.20 mg/dL 06/13/2025 4:23 PM EDT [facility] BUN/Creatinine Ratio 15 06/13/2025 4:23 PM EDT [facility] Sodium, Plasma 143 136 - 145 mmol/L 06/13/2025 4:23 PM EDT [facility] Potassium, Plasma 4.7 3.6 - 4.9 mmol/L 06/13/2025 4:23 PM EDT [facility] Chloride, Plasma 108(H) 97 - 107 mmol/L 06/13/2025 4:23 PM EDT [facility] CO2, Plasma 22 22 - 29 mmol/L 06/13/2025 4:23 PM EDT [facility] Anion Gap 13 6 - 16 mmol/L 06/13/2025 4:23 PM EDT [facility] [facility] Total Calcium, Plasma 8.2(L) 8.9 - 10.2 mg/dL 06/13/2025 4:23 PM EDT [facility] Phosphorus, Plasma 7.4(H) 2.5 - 4.5 mg/dL 06/13/2025 4:23 PM EDT [facility] Albumin, Plasma 2.6(L) 3.5 - 5.2 g/dL 06/13/2025 4:23 PM EDT [facility] eGFRcr 34.8 mL/min/1.7 3m*2 06/13/2025 4:23 PM EDT [facility] Comment:Reported eGFRcr in m L/min/1.73m2 is based the CKD-EPI 2020 equation that does not use a race coefficient. Blood Venous blood specimen / Unknown Venipuncture / Unknown 06/13/2025 3:35 PM EDT 06/13/2025 3:51 PM EDT us Roshan Haas MINES SAFETY ENGINEER, DNP LAB BLOOD ORDERABLES Fi nal Result [facility] [address] [place] [address] * (ABNORMAL) Hemoglobin and hematocrit, blood (06/13/2025 11:57 AM EDT) HGB 12.8(L) 13.7 - 17.5 g/dL LAB HEMATOLOGY METHOD 06/13/2025 12:26 PM EDT [facility] HCT 37.2(L) 40.0 - 51.0 % LAB HEMATOLOGY METHOD 06/13/2025 12:26 PM EDT [facility] Blood Arterial blood specimen / Unknown Arterial Line / Unknown 06/13/2025 11:57 AM EDT 06/13/2025 12:17 PM EDT us Roshan Haas MINES SAFETY ENGINEER, DNP LAB BLOOD ORDERABLES Fi nal Result [facility] [address] [place] [address] * (ABNORMAL) Blood gas panel, arterial (06/13/2025 11:30 AM EDT) pH, Arterial 7.34 7.31 - 7.42 LAB HEMATOLOGY METHOD 06/13/2025 11:37 AM EDT [facility] pCO2, Arterial 45 32 - 45 mmHg LAB HEMATOLOGY METHOD 06/13/2025 11:37 AM EDT [facility] pO2, Arterial 82 >70 mmHg LAB HEMATOLOGY METHOD 06/13/2025 11:37 AM EDT [facility] SO2, Measured, Arterial 96 94 - 98 % LAB HEMATOLOGY METHOD 06/13/2025 11:37 AM EDT [facility] Base Excess, Arterial -1.7 -2.0 - 3.0 mmol/L LAB HEMATOLOGY METHOD 06/13/2025 11:37 AM EDT [facility] Bicarbonate, Calculated, Arterial 24 22 - 26 mmol/L LAB HEMATOLOGY METHOD 06/13/2025 11:37 AM EDT [facility] Hematocrit, Whole Blood 39.0(L) 40.0 - 51.0 % LAB HEMATOLOGY METHOD 06/13/2025 11:37 AM EDT [facility] Sodium, Whole Blood 140 136 - 145 mmol/L LAB HEMATOLOGY METHOD 06/13/2025 11:37 AM EDT [facility] Potassium, Whole Blood 3.9 3.6 - 4.9 mmol/L LAB HEMATOLOGY METHOD 06/13/2025 11:37 AM EDT [facility] Chloride, Whole Blood 108(H) 97 - 107 mmol/L LAB HEMATOLOGY METHOD 06/13/2025 11:37 AM EDT [facility] Glucose, Whole Blood 145(H) 74 - 99 mg/dL LAB HEMATOLOGY METHOD 06/13/2025 11:37 AM EDT [facility] Ionized Calcium, Whole Blood 4.5(L) 4.6 - 5.1 mg/dL LAB HEMATOLOGY METHOD 06/13/2025 11:37 AM EDT [facility] Lactate, Arterial, Whole Blood 2.3(H) 0.5 - 1.6 mmol/L LAB HEMATOLOGY METHOD 06/13/2025 11:37 AM EDT [facility] Blood Arterial blood specimen / Unknown Arterial Puncture / Unknown 06/13/2025 11:30 AM EDT 06/13/2025 11:36 AM EDT us Roshan Haas APRN, DNP LAB BLOOD ORDERABLES Fi nal Result [facility] [address] [place] [address] * [place] CRITICAL CARE, ADDL 30 MIN (06/13/2025 10:48 [...] LAB HEMATOLOGY METHOD 06/13/2025 5:10 AM EDT [facility] pCO2, Arterial 46(H) 32 - 45 mmHg LAB HEMATOLOGY METHOD 06/13/2025 5:10 AM EDT [facility] pO2, Arterial 85 >70 mmHg LAB HEMATOLOGY METHOD 06/13/2025 5:10 AM EDT [facility] SO2, Measured, Arterial 97 94 - 98 % LAB HEMATOLOGY METHOD 06/13/2025 5:10 AM EDT [facility] Base Excess, Arterial -0.8 -2.0 - 3.0 mmol/L LAB HEMATOLOGY METHOD 06/13/2025 5:10 AM EDT [facility] Bicarbonate, Calculated, Arterial 25 22 - 26 mmol/L LAB HEMATOLOGY METHOD 06/13/2025 5:10 AM EDT [facility] Hematocrit, Whole Blood 38.7(L) 40.0 - 51.0 % LAB HEMATOLOGY METHOD 06/13/2025 5:10 AM EDT [facility] Sodium, Whole Blood 141 136 - 145 mmol/L LAB HEMATOLOGY METHOD 06/13/2025 5:10 AM EDT [facility] Potassium, Whole Blood 3.6 3.6 - 4.9 mmol/L LAB HEMATOLOGY METHOD 06/13/2025 5:10 AM EDT [facility] Chloride, Whole Blood 109(H) 97 - 107 mmol/L LAB HEMATOLOGY METHOD 06/13/2025 5:10 AM EDT [facility] Glucose, Whole Blood 137(H) 74 - 99 mg/dL LAB HEMATOLOGY METHOD 06/13/2025 5:10 AM EDT [facility] Ionized Calcium, Whole Blood 4.4(L) 4.6 - 5.1 mg/dL LAB HEMATOLOGY METHOD 06/13/2025 5:10 AM EDT [facility] Lactate, Arterial, Whole Blood 2.5(H) 0.5 - 1.6 mmol/L LAB HEMATOLOGY METHOD 06/13/2025 5:10 AM EDT [facility] Blood Arterial blood specimen / Unknown Arterial Line / Unknown 06/13/2025 4:53 AM EDT 06/13/2025 5:08 AM EDT us Jones Burdick MINES SAFETY ENGINEER LAB BLOOD ORDERABLES Francia l Result Performing Organization Address [facility] Co de Phone Number [facility] [address] [place] [address] * (ABNORMAL) Ionized calcium, whole blood (06/13/2025 4:53 AM EDT) Ionized Calcium, Whole Blood 4.4(L) 4.6 - 5.1 mg/dL LAB HEMATOLOGY METHOD 06/13/2025 5:13 AM EDT [facility] Blood Arterial blood specimen / Unknown Arterial Line / Unknown 06/13/2025 4:53 AM EDT 06/13/2025 5:10 AM EDT us Raymond Katz MINES SAFETY ENGINEER LAB BLOOD ORDERABLES Final Re sult Performing Organization Address [facility] [place] [address] * PERIPHERAL IV (SMARTFORM LINK) (06/13/2025 4:14 [...] LAB HEMATOLOGY METHOD 06/13/2025 12:43 AM EDT [facility] RBC Count 4.03(L) 4.60 - 6.10 10*6/uL LAB HEMATOLOGY METHOD 06/13/2025 12:43 AM EDT [facility] HGB 13.1(L) 13.7 - 17.5 g/dL LAB HEMATOLOGY METHOD 06/13/2025 12:43 AM EDT [facility] HCT 37.1(L) 40.0 - 51.0 % LAB HEMATOLOGY METHOD 06/13/2025 12:43 AM EDT [facility] Platelet Count 77(L) 155 - 369 10*3/uL LAB HEMATOLOGY METHOD 06/13/2025 12:43 AM EDT [facility] MCV 92 79 - 98 fL LAB HEMATOLOGY METHOD 06/13/2025 12:43 AM EDT [facility] MCH 32.5(H) 26.0 - 32.0 pg LAB HEMATOLOGY METHOD 06/13/2025 12:43 AM EDT [facility] MCHC 35.3 30.7 - 35.5 g/dL LAB HEMATOLOGY METHOD 06/13/2025 12:43 AM EDT [facility] RDW 16.1(H) 11.5 - 14.5 % LAB HEMATOLOGY METHOD 06/13/2025 12:43 AM EDT [facility] MPV 12.8(H) 8.8 - 12.5 fL LAB HEMATOLOGY METHOD 06/13/2025 12:43 AM EDT [facility] nRBC 0.6(H) <=0.0 per 100 WBCs LAB HEMATOLOGY METHOD 06/13/2025 12:43 AM EDT [facility] Blood Arterial blood specimen / Unknown Arterial Line / Unknown 06/13/2025 12:26 AM EDT 06/13/2025 12:31 AM EDT Raymond Katz APRN LAB BLOOD ORDERABLES Final Re sult Performing Organization Address [facility]/ZIP Co de Phone Number [facility] [address] [place] [address] * Richar auris Surveillance by PCR (06/12/2025 10:48 PM EDT) Richar auris PCR Result Not Detected Not Detected 06/13/2025 11:46 AM EDT [facility] Swab (Axilla and Groin) Non-blood Collection / Unknown 06/12/2025 10:48 PM EDT 06/12/2025 11:08 PM EDT Narrative [facility] - 06/13/2025 11:46 AM EDT This PCR assay was developed and its performance characteristics determined by [facility] as appropriate for clinical purposes. This assay has not been cleared or approved by the FDA, but is performed in a CLIA regulated laboratory that is qualified to perform high-complexity testing. Dyllan Paul MD LAB MICROBIOLOGY - GENERAL OR DERABLES Final Result Performing Organization Address [facility] [place] [place] [address] * Multi Drug Resistance Test (06/12/2025 10:48 PM EDT) Culture No growth at day 1 06/14/2025 12:06 AM EDT [facility] Swab (Nares and Cari Rectal) Non-blood Collection / Unknown 06/12/2025 10:48 PM EDT 06/12/2025 11:08 PM EDT Narrative [facility] - 06/14/2025 12:06 AM EDT This test was developed and its performance characteristics determined by the [facility]. Although the media is FDA-approved, it is not FDA-approved for all specimen types submitted. The FDA has determined that such clearance or approval is not necessary. This test is used for surveillance purposes. It should not be regarded as investigational or for research. The [facility] is certified under the Clinical Laboratory Improvement Amendments of 1988 (CLIA-88) as qualified to perform high complexity clinical laboratory testing. Dyllan Paul MD LAB MICROBIOLOGY - GENERAL OR DERABLES Final Result [facility] [address] [place] [address] * (ABNORMAL) Blood gas panel, arterial (06/12/2025 10:47 PM EDT) pH, Arterial 7.35 7.31 - 7.42 LAB HEMATOLOGY METHOD 06/12/2025 10:53 PM EDT [facility] pCO2, Arterial 45 32 - 45 mmHg LAB HEMATOLOGY METHOD 06/12/2025 10:53 PM EDT [facility] pO2, Arterial 163 >70 mmHg LAB HEMATOLOGY METHOD 06/12/2025 10:53 PM EDT [facility] SO2, Measured, Arterial 100(H) 94 - 98 % LAB HEMATOLOGY METHOD 06/12/2025 10:53 PM EDT [facility] Base Excess, Arterial -0.9 -2.0 - 3.0 mmol/L LAB HEMATOLOGY METHOD 06/12/2025 10:53 PM EDT [facility] Bicarbonate, Calculated, Arterial 25 22 - 26 mmol/L LAB HEMATOLOGY METHOD 06/12/2025 10:53 PM EDT [facility] Hematocrit, Whole Blood 39.8(L) 40.0 - 51.0 % LAB HEMATOLOGY METHOD 06/12/2025 10:53 PM EDT [facility] Sodium, Whole Blood 143 136 - 145 mmol/L LAB HEMATOLOGY METHOD 06/12/2025 10:53 PM EDT [facility] Potassium, Whole Blood 3.6 3.6 - 4.9 mmol/L LAB HEMATOLOGY METHOD 06/12/2025 10:53 PM EDT [facility] Chloride, Whole Blood 110(H) 97 - 107 mmol/L LAB HEMATOLOGY METHOD 06/12/2025 10:53 PM EDT [facility] Glucose, Whole Blood 142(H) 74 - 99 mg/dL LAB HEMATOLOGY METHOD 06/12/2025 10:53 PM EDT [facility] Ionized Calcium, Whole Blood 4.6 4.6 - 5.1 mg/dL LAB HEMATOLOGY METHOD 06/12/2025 10:53 PM EDT [facility] Lactate, Arterial, Whole Blood 2.3(H) 0.5 - 1.6 mmol/L LAB HEMATOLOGY METHOD 06/12/2025 10:53 PM EDT [facility] Blood Arterial blood specimen / Unknown Arterial Puncture / Unknown 06/12/2025 10:47 PM EDT 06/12/2025 10:52 PM EDT us Raymond Katz APRN LAB BLOOD ORDERABLES Final Re sult [facility] [address] [place] [address] * [place] CRITICAL CARE, ADDL 30 MIN, [place] CRITICAL CARE, ADDL 30 MIN, [place] CRITICAL CARE, ADDL 30 MIN (06/12/2025 10:22 [...] - 99 mg/dL 06/12/2025 10:21 PM EDT [facility] Comment:Accuracy of [...] Comment 06/12/2025 10:21 PM EDT [facility] Assembly Adjuster ID Nikolay Mccall 06/12/2025 10:21 PM EDT [facility] Device ID [id number] 06/12/2025 10:21 PM EDT [facility] Specimen Type POC Capillary 06/12/2025 10:21 PM EDT [facility] Blood Capillary blood specimen / Unknown 06/12/2025 10:19 PM EDT 06/12/2025 10:21 PM EDT Dyllan Paul MD LAB POINT OF CARE TE ST DOCKED DEVICE UNSOLICITED RESULTS Final Result Performing Organization Address City/State/[facility] Co de Phone Number [facility] [address] [place] [address] * XR Chest 1 View (06/12/2025 9:54 [...] on 06/12/2025 10:00 PM us Raymond Katz MINES SAFETY ENGINEER IMG XR PROCEDURES Final Resul t * (ABNORMAL) APTT (06/12/2025 9:27 PM EDT) aPTT 37(H) 25 - 35 sec LAB COAGULATION METHOD 06/12/2025 10:04 PM EDT [facility] Blood Arterial blood specimen / Unknown Arterial Line / Unknown 06/12/2025 9:27 PM EDT 06/12/2025 9:42 PM EDT us Dyllan Paul MD LAB BLOOD ORDERABLES Final Re sult [facility] [address] [place] [address] * (ABNORMAL) Protime-INR (06/12/2025 9:27 PM EDT) Prothrombin Time 20.7(H) 12.0 - 14.3 sec LAB COAGULATION METHOD 06/12/2025 10:04 PM EDT [facility] INR 1.8(H) 0.9 - 1.1 LAB COAGULATION METHOD 06/12/2025 10:04 PM EDT [facility] Blood Arterial blood specimen / Unknown Arterial Line / Unknown 06/12/2025 9:27 PM EDT 06/12/2025 9:42 PM EDT Narrative [facility] - 06/12/2025 10:04 PM EDT OPTIMAL INR RANGES FOR PATIENT ON ORAL ANTICOAGULANT THERAPY Prevention of venous thromboembolism INR 2.0 to 3.0 In patients with heart disease: Atrial fibrillation INR 2.0 to 3.0 Valvular heart disease INR 2.0 to 3.0 Tissue heart valves INR 2.0 to 3.0 Mechanical prosthetic valves INR 2.5 to 3.5 Prevention of recurrent DE INR 2.5 to 3.5 Dyllan Paul MD LAB BLOOD ORDERABLES Final Re sult Performing Organization Address [facility]/ZIP Co de Phone Number [facility] [address] [place] [address] * (ABNORMAL) Phosphorus (06/12/2025 9:27 PM EDT) Phosphorus, Plasma 5.1(H) 2.5 - 4.5 mg/dL 06/12/2025 10:12 PM EDT [facility] Blood Arterial blood specimen / Unknown Arterial Line / Unknown 06/12/2025 9:27 PM EDT 06/12/2025 9:42 PM EDT Dyllan Paul MD LAB BLOOD ORDERABLES Final Re sult Performing Organization Address [facility] Co de Phone Number [facility] [address] [place] [address] * (ABNORMAL) Magnesium (06/12/2025 9:27 PM EDT) Magnesium, Plasma 1.5(L) 1.9 - 2.4 mg/dL 06/12/2025 10:12 PM EDT [facility] Blood Arterial blood specimen / Unknown Arterial Line / Unknown 06/12/2025 9:27 PM EDT 06/12/2025 9:42 PM EDT Dyllan Paul MD LAB BLOOD ORDERABLES Final Re sult Performing Organization Address [facility]/ZIP Co de Phone Number [facility] [address] [place] [address] * (ABNORMAL) Comprehensive metabolic panel (06/12/2025 9:27 PM EDT) Glucose, Plasma 148(H) 74 - 99 mg/dL 06/12/2025 10:12 PM EDT [facility] BUN, Plasma 17 8 - 23 mg/dL 06/12/2025 10:12 PM EDT [facility] Creatinine, Plasma 1.06 0.70 - 1.20 mg/dL 06/12/2025 10:12 PM EDT [facility] BUN/Creatinine Ratio 16 06/12/2025 10:12 PM EDT [facility] Sodium, Plasma 143 136 - 145 mmol/L 06/12/2025 10:12 PM EDT [facility] Potassium, Plasma 4.1 3.6 - 4.9 mmol/L 06/12/2025 10:12 PM EDT [facility] Chloride, Plasma 109(H) 97 - 107 mmol/L 06/12/2025 10:12 PM EDT [facility] CO2, Plasma 22 22 - 29 mmol/L 06/12/2025 10:12 PM EDT [facility] Anion Gap 12 6 - 16 mmol/L 06/12/2025 10:12 PM EDT [facility] Total Calcium, Plasma 8.5(L) 8.9 - 10.2 mg/dL 06/12/2025 10:12 PM EDT [facility] Total Protein 4.2(L) 6.3 - 7.9 g/dL 06/12/2025 10:12 PM EDT [facility] Albumin, Plasma 2.6(L) 3.5 - 5.2 g/dL 06/12/2025 10:12 PM EDT [facility] AST, Plasma 71(H) 10 - 50 U/L 06/12/2025 10:12 PM EDT [facility] Comment:Hemolyzed, result ma y be falsely increased. ALT, Plasma 39 10 - 50 U/L 06/12/2025 10:12 PM EDT [facility] Alkaline Phosphatase, Plasma 109 40 - 115 U/L 06/12/2025 10:12 PM EDT [facility] Total Bilirubin, Plasma 2.8(H) 0.2 - 1.1 mg/dL 06/12/2025 10:12 PM EDT [facility] eGFRcr 75.5 mL/min/1.7 3m*2 06/12/2025 10:12 PM EDT [facility] Comment:Reported eGFRcr in m L/min/1.73m2 is based the CKD-EPI 2020 equation that does not use a race coefficient. Blood Arterial blood specimen / Unknown Arterial Line / Unknown 06/12/2025 9:27 PM EDT 06/12/2025 9:42 PM EDT us Dyllan Paul MD LAB BLOOD ORDERABLES Final Re sult [facility] [address] [place] [address] * (ABNORMAL) CBC W/O Differential (06/12/2025 9:27 PM EDT) WBC Count 11.67(H) 3.70 - 10.30 10*3/uL LAB HEMATOLOGY METHOD 06/12/2025 10:23 PM EDT [facility] RBC Count 3.91(L) 4.60 - 6.10 10*6/uL LAB HEMATOLOGY METHOD 06/12/2025 10:23 PM EDT [facility] HGB 12.5(L) 13.7 - 17.5 g/dL LAB HEMATOLOGY METHOD 06/12/2025 10:23 PM EDT [facility] HCT 36.2(L) 40.0 - 51.0 % LAB HEMATOLOGY METHOD 06/12/2025 10:23 PM EDT [facility] Platelet Count 70(L) 155 - 369 10*3/uL LAB HEMATOLOGY METHOD 06/12/2025 10:23 PM EDT [facility] MCV 93 79 - 98 fL LAB HEMATOLOGY METHOD 06/12/2025 10:23 PM EDT [facility] MCH 32.0 26.0 - 32.0 pg LAB HEMATOLOGY METHOD 06/12/2025 10:23 PM EDT [facility] MCHC 34.5 30.7 - 35.5 g/dL LAB HEMATOLOGY METHOD 06/12/2025 10:23 PM EDT [facility] RDW 16.0(H) 11.5 - 14.5 % LAB HEMATOLOGY METHOD 06/12/2025 10:23 PM EDT [facility] MPV 12.8(H) 8.8 - 12.5 fL LAB HEMATOLOGY METHOD 06/12/2025 10:23 PM EDT [facility] nRBC 0.4(H) <=0.0 per 100 WBCs LAB HEMATOLOGY METHOD 06/12/2025 10:23 PM EDT [facility] Blood Arterial blood specimen / Unknown Arterial Line / Unknown 06/12/2025 9:27 PM EDT 06/12/2025 9:43 PM EDT us Dyllan Paul MD LAB BLOOD ORDERABLES Final Re sult [facility] [address] [place] [address] * (ABNORMAL) POCT arterial blood gas gem (06/12/2025 9:19 PM EDT) pH, Arterial 7.34 7.31 - 7.42 06/12/2025 9:20 PM EDT [facility] pCO2, Arterial 44 32 - 45 mm Hg 06/12/2025 9:20 PM EDT [facility] pO2, Arterial 81 >70 mm Hg 06/12/2025 9:20 PM EDT [facility] SO2, Arterial 98 94 - 98 % 06/12/2025 9:20 PM EDT [facility] Base Excess, Arterial -2.2(L) -2 - 3 mmol/L 06/12/2025 9:20 PM EDT [facility] HCO3, Arterial 23.7 22 - 26 mmol/L 06/12/2025 9:20 PM EDT [facility] Total Hemoglobin, Arterial, Whole Blood 12.2(L) 13.7 - 17.5 g/dL 06/12/2025 9:20 PM EDT [facility] Hematocrit, Arterial 37.0(L) 40 - 51.0 % 06/12/2025 9:20 PM EDT [facility] Sodium, Arterial 141 136 - 145 mmol/L 06/12/2025 9:20 PM EDT [facility] Potassium, Arterial 3.4(L) 3.6 - 4.9 mmol/L 06/12/2025 9:20 PM EDT [facility] Chloride, Whole Blood 112(H) 97 - 107 mmol/L 06/12/2025 9:20 PM EDT [facility] Glucose, Arterial 129(H) 74 - 99 mg/dL 06/12/2025 9:20 PM EDT [facility] Ionized Calcium, Arterial 4.5(L) 4.6 - 5.1 mg/dL 06/12/2025 9:20 PM EDT [facility] Lactate, Arterial 2.4(H) 0.5 - 1.6 mmol/L 06/12/2025 9:20 PM EDT [facility] Body Temperature 37.0 Celsius 06/12/2025 9:20 PM EDT [facility] pH, Temp Corrected, Arterial 7.34 7.31 - 7.42 06/12/2025 9:20 PM EDT [facility] pCO2, Temp Corrected, Arterial 44 32 - 45 mm Hg 06/12/2025 9:20 PM EDT [facility] pO2, Temp Corrected, Arterial 81 >70 mm Hg 06/12/2025 9:20 PM EDT [facility] Assembly Adjuster ID Dyllan Wong 06/12/2025 9:20 PM EDT [facility] Blood, Arterial Whole blood specimen / Unknown 06/12/2025 9:19 PM EDT 06/12/2025 9:20 PM EDT us Dyllan Paul MD LAB POINT OF CARE TE ST DOCKED DEVICE UNSOLICITED RESULTS Final Result [facility] [address] [place] [address] * (ABNORMAL) POCT venous blood gas gem (06/12/2025 7:35 PM EDT) pH, Venous 7.29(L) 7.32 - 7.43 06/12/2025 7:36 PM EDT [facility] pCO2, Venous 56(H) 40 - 55 mm Hg 06/12/2025 7:36 PM EDT [facility] pO2, Venous 55(H) 25 - 40 mm Hg 06/12/2025 7:36 PM EDT [facility] SO2, Venous 83(H) 65 - 80 % 06/12/2025 7:36 PM EDT [facility] Base Excess/Deficit, Venous -0.5 -2 - 3 mmol/L 06/12/2025 7:36 PM EDT [facility] HCO3, Venous 26.9(H) 22 - 26 mmol/L 06/12/2025 7:36 PM EDT [facility] Hemoglobin, Venous 11.9(L) 13.7 - 17.5 g/dL 06/12/2025 7:36 PM EDT [facility] Hematocrit, Venous 36.0(L) 40.0 - 51.0 % 06/12/2025 7:36 PM EDT [facility] Sodium, Venous 142 136 - 145 mmol/L 06/12/2025 7:36 PM EDT [facility] Potassium, Venous 3.5(L) 3.6 - 4.9 mmol/L 06/12/2025 7:36 PM EDT [facility] POCT Chloride, Venous 107 97 - 107 mmol/L 06/12/2025 7:36 PM EDT [facility] Glucose, Venous 120(H) 74 - 99 mg/dL 06/12/2025 7:36 PM EDT [facility] Ionized Calcium, Venous 4.0(L) 4.6 - 5.1 mg/dL 06/12/2025 7:36 PM EDT [facility] Lactate, Venous 1.8 0.5 - 2.2 mmol/L 06/12/2025 7:36 PM EDT [facility] Body Temperature 37.0 Celsius 06/12/2025 7:36 PM EDT [facility] pH, Temp Corrected, Venous 7.29(L) 7.32 - 7.43 06/12/2025 7:36 PM EDT [facility] pCO2, Temp Corrected, Venous 56(H) 40 - 55 mm Hg 06/12/2025 7:36 PM EDT [facility] pO2, Temp Corrected, Venous 55(H) 25 - 40 mm Hg 06/12/2025 7:36 PM EDT [facility] Assembly Adjuster ID [email or web address] [email or web address] 06/12/2025 7:36 PM EDT [facility] Blood, Venous Whole blood specimen / Unknown 06/12/2025 7:35 PM EDT 06/12/2025 7:36 PM EDT us Dyllan Paul MD LAB POINT OF CARE TE ST DOCKED DEVICE UNSOLICITED RESULTS Final Result [facility] [address] [place] [address] * Transfuse RBC (06/12/2025 7:16 PM EDT) us Afshin Reece MD BLOOD TRANSFUSION ORDERABLES Final Result * Transfuse RBC (06/12/2025 7:02 PM EDT) Afshin Reece MD BLOOD TRANSFUSION ORDERABLES Final Result * Prepare Leukocyte Reduced RBC: 4 Units (06/12/2025 6:49 PM EDT) Product Code [id number] CH BLOO D BANK Dispense Status Returned BLOOD BANK Blood Expiration Date [id number] BLOOD BANK Unit Number [id number] CH B LOOD BANK Product Blood Type 5100 CH BLOOD BANK Blood Type O+ CH BLOOD BANK Crossmatch Compatible CH BLOOD BANK Product Code [id number] CH BLOO D BANK Dispense Status Returned CH BLOOD BANK Blood Expiration Date [id number] BLOOD BANK Unit Number [id number] CH B LOOD BANK Product Blood Type 5100 CH BLOOD BANK Blood Type O+ CH BLOOD BANK Crossmatch Compatible BLOOD BANK Product Code [id number] BLOO D BANK Dispense Status Transfused CH BLOOD BANK Blood Expiration Date [id number] BLOOD BANK Unit Number [id number] CH B LOOD BANK Product Blood Type 5100 CH BLOOD BANK Blood Type O+ CH BLOOD BANK Crossmatch Compatible BLOOD BANK Product Code [id number] BLOO D BANK Dispense Status Transfused BLOOD BANK Blood Expiration Date [id number] BLOOD BANK Unit Number [id number] CH B LOOD BANK Product Blood Type 5100 BLOOD BANK Blood Type O+ CH BLOOD BANK Crossmatch Compatible BLOOD BANK Other Afshin Reece MD BLOOD BANK PRODUCT ORDERABLES Edited Result - Final BLOOD BANK [address] [place] [id number], [place] * Surgical Pathology Exam (06/12/2025 6:07 PM EDT) Case Report Surgical Pathology Case: [id number] Authorizing Provider: Dyllan Paul MD Collected: 06/12/2025 6314 Ordering Location: [facility] Received: 06/13/2025 0811 Pathologist: Aliza Daugherty MD Specimens: A) - Other (specify site), Prostate and seminal vesicles - fresh for permanent B) - Other (specify site), Bilateral pelvic lymph nodes - permanent 06/19/2025 10:43 AM EDT [facility] Final Diagnosis A. PROSTATE AND SEMINAL [...] LYMPH NODES (0/8). 06/19/2025 10:43 AM EDT [facility] at 1043 EDT Synoptic Checklist PROSTATE [...] (usual) Histologic Grade: Grade: Grade group 3 ([place] Score 4 + 3 = 7) Minor [...] Acute and chronic 06/19/2025 10:43 AM EDT [facility] Clinical Information PROSTATE CANCER 06/19/2025 10:43 AM EDT [facility] Gross Description A. PROSTATE AND SEMINAL VESICLES - FRESH FOR PERMANENT Specimen label: Prostate and seminal vesicles Specimen fixation: Formalin Specimen type: Radical Prostatectomy Specimen Weight: 75 grams Specimen Size: The prostate measures 5.0 cm rbdu-zz-kdzz, 5.1 cm zfmpimgu-qv-xjzzko ior, and 7.3 cm ylvo-rg-tephc. The left seminal vesicle measures 1.5 x [...] cassettes. The prostate is serially sectioned from ovzo-ch-zgwv into 9, 5mm slices. Serial sections reveal [...] Cold Time: <1m 06/19/2025 10:43 AM EDT [facility] Note: A resident was involved in the service. I attest I examined the relevant preparations for the specimens and confirmed the diagnosis or interpretation. 06/19/2025 10:43 AM EDT [facility] Tissue Topography unknown / Unknown 06/12/2025 6:07 PM EDT 06/13/2025 8:11 AM EDT Comment:Pre-op diagnosis: PROSTATE CANCER Lymph node tissue specimen (specimen) Topography unknown / Unknown 06/12/2025 6:08 PM EDT 06/13/2025 8:11 AM EDT Comment:Pre-op diagnosis: PROSTATE CANCER us Dyllan Paul MD LAB PATHOLOGY ORDERABLES Francia l Result Performing Organization Address [facility] Co de Phone Number [facility] [address] [place] [address] * POCT glucose meter (06/12/2025 1:21 PM [...] 06/12/2025 1:23 PM EDT [facility] Assembly Adjuster ID Carol Proctor 06/12/2025 1:23 PM EDT [facility] Device ID [id number] 06/12/2025 1:23 PM EDT [facility] Specimen Type POC Venous 06/12/2025 1:23 PM EDT [facility] Blood Venous blood specimen / Unknown 06/12/2025 1:21 PM EDT 06/12/2025 1:23 PM EDT us Dyllan Paul MD LAB POINT OF CARE TE ST DOCKED DEVICE UNSOLICITED RESULTS Final Result Performing Organization Address [facility] Co de Phone Number [facility] [address] [place] [address] * Type and Screen (06/12/2025 1:14 PM EDT) ABO/Rh O Positive 06/12/2025 1:08 PM EDT BLOOD BANK Antibody Screen Negative 06/12/2025 1:08 PM EDT BLOOD BANK Specimen Expiration 06/15/2025 23:59 06/12/2025 1:08 PM EDT BLOOD BANK Blood Venous blood specimen / Unknown Venipuncture / Unknown 06/12/2025 1:14 PM EDT 06/12/2025 1:31 PM EDT Dlylan Paul MD LAB BLOOD BANK TEST ORDERABLE S Final Result BLOOD BANK [address] [place] [address], [place] * Phosphatidylethanol (PEth), Whole Blood, Quantitative (06/12/2025 1:14 PM EDT) PEth 16:0/18:2 (PLPEth) 251 ng/mL 06/14/2025 11:37 AM EDT [facility]) PEth 16:0/18:1 (POPEth) 260 ng/mL 06/14/2025 11:37 AM EDT [facility]) EER Peth See Note 06/14/2025 11:37 AM EDT [facility]) PEth Interpretation See Comment 06/14/2025 11:37 AM EDT [facility]) Blood Venous blood specimen / Unknown Venipuncture [...] well established. Authorized individuals can access the [employer] Enhanced Report with an [employer] Connect account using the following link. Your local lab can assist you in obtaining the patient report if you don't have a Connect account. [email or web address] Phosphatidylethanol (PEth) is a group of phospholipids [...] developed and its performance characteristics determined by [facility]. It has not been cleared or approved by the U.S. Food and Drug Administration. This test was performed in a CLIA-certified laboratory and is intended for clinical purposes. Performed By: [facility] [address] [id number] E Mail System Administrator: Sotero Banuelos MD, PhD CLIA Number: [id number] Dyllan Paul MD LAB REF LAB BLOOD AND FLUID O RD Final Result [facility] ([facility]) [address] [id number] documented in this encounter Visit Diagnoses Diagnosis [...] 0.25 % injection As needed, Starting on Mon06/12/25 at 2000, Until Mon06/12/25 at 2058, Routine, [...] at 211, Routine, high blood pressure, SBP>180 lactulose (Chronulac) [...] 6 hours PRN, Starting on Mon06/12/25 at 204, Until Mon06/25/25 at 2112, Routine, Recovery(Phase II-Outpatient)/On [...] Intravenous, As needed, Starting on Mon06/12/25 at 204, Until Mon06/25/25 at 2112, Routine, Recovery(Phase II-Outpatient)/On [...] on Mon06/18/25 at 2100, Until Discontinued, Routine 2142 (Given - Provider: Bianka Phillips RN) 2240 (Given - Provider: Gill White RN - [...] Samia Santos RN)2143 (Given - Provider: Bianka Phillips, TIERA) 0833 (Given - Provider: Jeff Gómez, TIERA) carvedilol (Coreg) tablet 3.125 mg 3.125 mg, Oral, 2 times daily, First dose (after last modification) on Mon06/24/25 at 2100, Until Discontinued, Routine 2241 (Given - Provider: Gill White RN [...] Samia Santos RN)2143 (Given - Provider: Bianka Phillips, TIERA) 0833 (Given - Provider: Jeff Gómez, TIERA)224 (Given - Provider: Gill White RN - [...] Santos RN) 0834 (Given - Provider: Jeff Gómez, TIERA) 0831 (Given - Provider: Jeff Gómez RN) [...] for condition: must add comment - Comment: sleeping)2142 (Given - Provider: Bianka Phillips RN) 1242 (Not Given - Provider: Jeff Gómez RN - Reason: Patient/family refused)1453 (Given - Provider: Jeff Gómez, RN)1736 (Not Given - Provider: Jeff Gómez [...] Unit(Inpatient) 0832 (Given - Provider: Samia Santos RN)2129 (Canceled Entry - Provider: Automatic Discharge Provider [...] Until Mon06/25/25 at 211, Routine, low blood sugar, per Hypoglycemia Prevention [...] 12 hours, First dose on Mon06/12/25 at 0, Until Discontinued, Routine, Recovery(Phase II-Outpatient)/On Unit(Inpatient) And [...] documented as of this encounter Care Teams [employer] Relationship Specialty Start Date End Date Murray Prajapati MD [address] [id number] [place] [address] PCP - General 03/06/23 Jaja Camara APRN [address] [facility] [address] [place] [address] Referring Physician Gastroenterology 03/06/23 Dyllan Paul MD [address] [id number] Surgeon Urology 04/29/25 documented as of this encounter
--- OUTSIDE RECORDS SUMMARY | 2025-06-12 14:42 | XMS_ITS | Encounter Summary ---
Author Organization [facility] Address [address] [place] [address] Care Team Providers Care Pantograph I Engraver Name Role Phone Murray Prajapati MD Primary Care Provider [phone] Jaja Camara VULCAN[employer]ED FIBER UNIT OPERATOR Unavailable [phone] StrDyllan goncalves MD Unavailable [phone] Reason for Visit * Auth/Cert (Routine) Specialty Diagnoses / Procedures Referred By Silverio barone Referred To Contact Diagnoses Prostate CA ([facility]) PROSTATE CANCER Procedures MO LAP,PROSTATECTOMY,RADICAL, W/NERVE SPARE,INCL ROBOTIC PROSTATECTOMY, RADICAL, ROBOT-ASSISTED StrDyllan goncalves MD [address] [facility] [address] [place] [address] Phone: tel: fax: [facility] [address] [place] [address] Phone: tel: Referral ID Status Reason Start Date Expiration Date Visits Re quested Visits Authorized [id number] 1 1 Encounter Details Date Type Department Care Team (Late st Contact Info) Description 06/12/2025 2:42 PM EDT Anesthesia Event [facility] [address] [place] [address] Afshin Reece MD [address] [place] [address] Mumtaz Pat DO [address] [place] [address] Anesthesia Record Procedure Summary Procedure Name Responsible Anesthesiologist Anesthesia Start Time Anesthesia Stop Time PROSTATECTOMY, RADICAL, ROBOT-ASSISTED (Abdomen) Afshin Reeec MD 06/12/25 1442 06/12/252127 Events Date Time [...] Hand; Site Prep: Chlorhexidine ; Local Anesth: [place]; Technique: Anatomical landmarks; Inserted by: Belidna Ramirez; Patient Tolerance: Tolerated well; Removal Date: [...] portions of the procedure(s) and immediately available [facility] services the entire duration. See resident note for details. * Anesthesia Preprocedure Evaluation - Reyna Houston MD - 06/12/2025 6:35 AM EDT Images from the original note were not included. DELON Lowe is a 70 y.o. male who presents with Pre-op Diagnosis * Prostate CA (CMS/HCC) [C61] now scheduled for PROSTATECTOMY, RADICAL, ROBOT- ASSISTED (N/A)with Dyllan Paul MD on 06/12/2025 at [facility] [place]. Past Medical History[1] Family History[2] Social History[3] denies tobacco, etoh, illicit drugs SURGICAL HISTORY: Surgical History[4] ccy, back lipoma, UHR, Knee scope Allergies[5] NKDA MEDICATIONS: Current Medications[6] ROS Anesthesia: Date of last anesthetic: ~ 2009. history of previous anesthesia. Does not have a history of anesthetic complications and obstructivesleep apnea. Cardiovascular: hyperlipidemia. Does not have angina, CAD, CHF, dysrhythmias, pacemaker or past NV. hypertension: Exercise tolerance is 2 flights of [...] Does not have cervical spine limited mobility. [facility] [place] additional comments: Recent skin cancer excised from [...] [1] Past Medical History: Diagnosis Date Cancer ([facility]/HCC) january 26, 2025 Cirrhosis ([facility]) 2021 History of methicillin resistant Staphylococcus aureus [...] sleep. (Patient not taking: Reported on 04/29/2025) lmgvhihkotke-gdhd-abtebybd-folic acid, Chew 1 tablet daily. potassium chloride [...] Description 08/22/2025 9:00 AM EDT Office Visit [facility] Nephrology, Bone & Mineral Metabolism [address], [address] [place] [address] Kathia Watkins MD [address] [place] [address] 08/28/2025 8:50 AM EDT Hospital Encounter [facility] [address] [place] [address] Dyllan Paul MD [address] [address] 08/28/2025 8:50 AM EDT Anesthesia Event [facility] [address] [place] [address] Paige Starkey, TORREY [address] [facility] [address] [place] [address] 08/28/2025 8:50 AM EDT - 08/28/2025 10:35 AM EDT Surgery [facility] [address] [place] [address] Dyllan Paul MD [address] [address] URETEROSCOPY, WITH LASER LITHOTRIPSY [66139 (CPT )] 10/28/2025 8:00 AM EST Office Visit [facility] [address] [place] [address] Pavan Aldrich MD [address] [place] [address] Scheduled Procedures Name Priority Associated Diagnoses Date/Ti me URETEROSCOPY, WITH LASER LITHOTRIPSY Ureteral stone 08/28/2025 8:50 AM EDT documented as of this encounter Procedures [...] ANESTHESIA ULTRASOUND GUIDED (06/12/2025 6:54 PM EDT) Narrative Afshin Reece MD - 06/12/2025 6:54 PM EDT Afshin Reece MD 06/12/2025 7:35 PM Peripheral IV Date/Time: 06/12/2025 6:54 PM Inserted by: Dyllan Wong DO Placement Needle size: 16 G Location: external jugular Site prep: alcohol Technique: ultrasound guided Attempts: 1 us Afshin Reece MD ANESTHESIA ORDERABLES Final R esult * Peripheral IV (06/12/2025 3:17 PM EDT) Narrative Reyna Houston MD - 06/12/2025 3:17 PM EDT Reyna Houston MD 06/12/2025 4:40 PM Peripheral IV Placement Needle size: 18 G Location: arm Site prep: alcohol Technique: anatomical landmarks Reyna Houston MD ANESTHESIA ORDERABLES Final R [...] (+) ETCO2, Atraumatic, No change to dentition. us Reyna Houston MD ANESTHESIA ORDERABLES Final R esult documented in this encounter Visit Diagnoses Not on filedocumented in this encounter Administered Medications Inactive Administered Medications - up to 3 most recent administrations Medication Order MAR Action Action Date Dose Rate Site albuterol 108 (90 Base) MCG/ACT inhaler Inhalation, As needed, Starting on Eunice 06/12/25 at 2040, Until Eunice 06/12/25 at 2137, Routine, Anesthesia Intraprocedure Given 06/12/2025 8:44 PM EDT 4 puffs Given 06/12/2025 8:40 PM EDT 4 puffs calcium chloride 10 % injection Intravenous, As needed, Starting on Eunice 06/12/25 at 1934, Until Enuice 06/12/25 at 2127, Routine, Anesthesia Intraprocedure Given [...] As needed, Starting on Eunice 06/12/25 at 202, Until Eunice 06/12/25 at 2127, Routine, Anesthesia Intraprocedure Given 06/12/2025 8:32 PM EDT 100 mg Given 06/12/2025 8:29 PM EDT 100 mg Given 06/12/2025 8:28 PM EDT 100 mg Transfuse RBC Routine New Bag 06/12/2025 7:02 PM EDT Transfuse RBC Routine New Bag 06/12/2025 7:15 PM EDT vasopressin (Vasostrict) injection Subcutaneous, As needed, Starting on Eunice 06/12/25 at 1909, Until Eunice 06/12/25 at 2127, Routine, Anesthesia Intraprocedure Given 06/12/2025 7:59 PM [...] documented as of this encounter Care Teams Pantograph I Engraver Relationship Specialty Start Date End Date Murray Prajapati MD [address] [facility] [address] [place] [address] PCP - General 03/06/23 Jaja Camara APRN [address] [place] [facility] [address] [place] [address] Referring Physician Gastroenterology 03/06/23 Dyllan Paul MD [id number] [place] [id number] Surgeon Urology 04/29/25 documented as of this encounter
--- OUTSIDE RECORDS SUMMARY | 2025-06-28 21:28 | XMS_ITS | Encounter Summary ---
Author Organization [facility] Address [address] [id number] Care Team Providers Care Loan Collector Name Role Phone Murray Prajapati MD Primary Care Provider Jaja Cmaara ASSOCIATE PROFESSOR OF ARCHAEOLOGY Unavailable [phone] Dyllan Paul MD Unavailable [phone] Marlin Martinez RN Unavailable Unavailable Reason for Referral * Consultation (Routine) - Authorized Specialty Diagnoses / Procedures Referred By Sliverio barone Referred To Contact Gastroenterology Diagnoses Right ureteral stone Cirrhosis of liver with ascites, unspecified hepatic cirrhosis type (CMS/HCC) Quentin Anderson MD [address] [place] [address] Phone: tel: fax: [facility] [address] [place] [address] Phone: tel: fax: Referral ID Status Reason Start Date Expiration Date Visits Requested Visits Authorized [id number] Authorized Specialty Services Required 07/04/2025 01/03/2027 1 1 * Consultation (Routine) - Authorized Specialty Diagnoses / Procedures Referred By Silverio barone Referred To Contact Urology Diagnoses Right ureteral stone Cirrhosis of liver with ascites, unspecified hepatic cirrhosis type (CMS/HCC) Quentin Anderson MD [address] [place] [address] Phone: tel: fax: [facility]rology [address] [place] [address] Phone: tel: fax: Referral ID Status Reason Start Date Expiration Date Visits Requested Visits Authorized [id number] Authorized Specialty Services Required 07/04/2025 01/03/2027 1 1 Reason for Visit * Reason Comments Fever Post-op Problem Fatigue * Auth/Cert (Routine) Specialty Diagnoses / Procedures Referred By Contac t Referred To Contact Diagnoses Sepsis, localized, in operative wound (CMS/HCC) Lizzie Cadena MD [address] [place] [address] Phone: tel: fax: [facility] [address] [place] [address] Referral ID Status Reason Start Date Expiration Date Visits Re quested Visits Authorized [id number] 1 1 Encounter Details Date Type Department Care Team (Latest Contact Info) Description 06/28/2025 9:28 PM EDT - 07/04/2025 2:50 PM EDT Hospital Encounter [facility] [address] [place] [address] Rg Coleman MD [address] [place] [address] Kj Santos MD [address] [place] [address] Lizzie Cadena MD [address] [place] [address] Lizzie Biggs MD [address] [place] [address] Quentin Anderson MD [address] [place] [address] Lamberto Sales MD [address] [place] [address] Febrile illness (Primary Dx); Hypotension, unspecified hypotension type; Right ureteral stone; Cirrhosis of liver with ascites, unspecified hepatic cirrhosis type (CMS/HCC) Discharge Disposition: Home or Self Care Social History Tobacco Use Types Packs/Day Years Used Date Smoking Tobacco: Never Passive Smoke Exposure: Never Smokeless Tobacco: Never Alcohol Use Standard Drinks/Week Comments Yes 0 (1 standard drink = 0.6 oz pur e alcohol) Currently social use. PHQ-2 Answer Date Recorded Patient Health Questionnaire-2 Score 0 07/22/2025 PHQ-9 Answer Date Recorded Patient Health Questionnaire-9 Score 0 04/29/2025 Humiliation, Afraid, Rape, and Kick questionnair e Answer Date Recorded Within the last year, have y ou been afraid of your partner or ex-partner? No 07/28/2025 Within the last year, have y ou been humiliated or emotionally abused in other ways by your partner or ex-partner? No Within the last year, have y ou been kicked, hit, slapped, or otherwise physically hurt by your partner or ex-partner? No 07/28/2025 Within the last year, have y ou been raped or forced to have any kind of sexual activity by your partner or ex-partner? No 07/28/2025 Hunger Vital Sign Answer Date Recorded Within the past 12 months, y ou worried that your food would run out before you got the money to buy more. Never true 07/28/20 25 Within the past 12 months, t he food you bought just didn't last and you didn't have money to get more. Never true 07/28/2025 PRAPARE - Transportation Answer Date Re corded In the past 12 months, has l ack of transportation kept you from medical appointments or from getting medications? No 06/2025 In the past 12 months, has l ack of transportation kept you from meetings, work, or from getting things needed for daily living? No 07/28/2025 Housing Stability Vital Sign Answer Richard e Recorded In the last 12 months, was t here a time when you were not able to pay the mortgage or rent on time? No 07/28/2025 In the past 12 months, how m any times have you moved where you were living? 0 07/28/2025 At any time in the past 12 m [facility], were you homeless or living in a [place] (including now)? No 07/28/2025 [facility] Utilities Answer Date Recorded In the past 12 months has [employer], gas, oil, or water [employer] threatened to shut off services in your home? No 07/28/2025 CAGE ASSESSMENT Answer Date Recorded Cage unable to access Not on file 07/26/2025 Maximum number of drinks you had on a given occasion in the last month? 0 drinks 07/26/2025 How many alcoholic Beverages do you typically drink in a week? 0 - 7 per week 07/26/2025 Have you ever felt you should CUT down on your d rinking? 0 07/26/2025 Have you been ANNOYED by peo ple criticizing your drinking? 0 07/26/2025 Have you felt GUILTY about your drinking? 0 07/26/2025 Have you had a drink first t rafy in the morning (EYE-DISPLAY DESIGNER) to steady your nerves or to get rid of a hangover? 0 07/26/2025 CAGE Questionnaire Score 0 025 PHQ-2A Answer Date Recorded Patient Health Questionnaire-2 Score 0 05/04/2023 Sex and Gender Information Value Date Recorded Sex Assigned at Not on file Legal Sex Male 8:25 PM EDT Gender Identity Not on file Sexual Orientation Not on file documented as of this encounter Last Filed Vital Signs Vital Sign Reading Time Taken Comments Blood Pressure 95/64 07/04/2025 12:35 PM EDT Pulse 85 07/04/2025 12:35 PM EDT Temperature 36.6 C (97.8 F) 07/04/2025 12:35 PM EDT Respiratory Rate 15 07/04/2025 12:35 PM EDT Oxygen Saturation 92% 07/04/2025 12:35 PM EDT Inhaled Oxygen Concentration - - Weight 114 kg (251 lb 5.2 oz) 07/04/2025 6:00 AM EDT Height 175.3 cm (5' 9 ) 06/28/2025 9:29 PM EDT Body Mass Index 37.11 06/28/2025 9:29 PM EDT documented in this encounter Functional Status * Over the past 2 weeks, how often have you been bothered by any of the following problems? Question Answer Date of Assessment Author Little interest or pleasure in doing things Not at all 07/22/2025 8:37 AM EDT Smith Rosa Feeling down, depressed, or hopeless Not at all 12/2024 8:37 AM EDT Smith Rosa Patient Health Questionnaire-2 Score 0 12/2024 8:37 AM EDT Smith Rosa * Calculated C-SSRS Risk Score (Lifetime/Recent) Answer Date of Assessment Author No Risk Indicated 07/30/2025 8:00 PM EDT Zain Wu RN * Question Answer Date of Assessment Author 1. Wish to be (Past 1 Month) No 8:00 PM EDT Zain Wu RN 2. Non-Specific Active Suici tyra Thoughts (Past 1 Month) No 07/30/2025 8:00 PM EDT Alexandra Wu nd, RN 3. Active Suicidal Ideation with any Methods (Not Plan) Without Intent to Act (Past 1 Month) No 07/30/2025 8:00 PM EDT Zain Wu RN 4. Active Suicidal Ideation with Some Intent to Act, Without Specific Plan (Past 1 Month) No 07/30/2025 8:00 PM EDT Zain Wu RN 5. Active Suicidal Ideation with Specific Plan and Intent (Past 1 Month) No 07/30/2025 8:00 PM EDT Zain Wu RN 6. Suicidal Behavior (Lifetime) No 8:00 PM EDT Zain Wu RN documented as of this encounter Medications at Time of Discharge atorvastatin (Lipitor) 10 MG tablet Take 1 tablet by mouth daily. enoxaparin (Lovenox) 120 MG/0.8ML solution prefilled syringe Inject 0.8 mL under the skin every 12 hours. 180 each 06/25/2025 miconazole (Micotin) 2 % powder Apply to affected areas 43 g 1 07/04/2025 multivitamin-iron -minerals-folic acid (Centrum) chewable tablet Chew 1 tablet daily. naloxone (Narcan) 4 mg/0.1 mL nasal spray 1. Give 1 spray in nostril for no/slow breathing or cannot wake after opioid use 2. Call 911 3. Repeat in other nostril if symptoms continue 1 each 07/04/2025 Vitamin E 450 MG (1000 UT) capsule Take 1,000 Units by mouth 1 (one) time each day. acetaminophen (Tylenol) 500 MG tablet Take 1 tablet by mouth every 8 hours as needed for pain. 60 tablet 07/04/2025 5 fluconazole (Diflucan) 200 MG tabletIndications :Right ureteral stone,Cirrhosis of liver with ascites, unspecified hepatic cirrhosis type (CMS/HCC) Take 1 tablet by mouth daily for 9 doses. 9 tablet 07/05/2025 5 levoFLOXacin (Levaquin) 750 MG tabletIndications :Right ureteral stone,Cirrhosis of liver with ascites, unspecified hepatic cirrhosis type (CMS/HCC) Take 1 tablet by mouth daily for 4 doses. 4 tablet 07/04/2025 5 metroNIDAZOLE (Flagyl) 500 MG tabletIndications :Right ureteral stone,Cirrhosis of liver with ascites, unspecified hepatic cirrhosis type (CMS/HCC) Take 1 tablet by mouth every 8 hours for 14 doses. 14 tablet 07/04/2025 5 oxyCODONE (Roxicodone) 5 MG immediate release tablet Take 1 tablet by mouth every 6 hours as needed for moderate pain for up to 3 days. 12 tablet 07/04/2025 5 carvedilol (Coreg) 3.125 MG tabletIndications :Esophageal varices without bleeding, unspecified esophageal varices type (CMS/HCC) Take 1 tablet by mouth 2 times a day. 60 tablet 2 03/28/2025 5 furosemide (Lasix) 40 MG tablet Take 1 tablet by mouth 2 times a day. 5 lactulose (Chronulac) 10 GM/15ML solution Take 15 mL by mouth daily. 473 mL 1 06/26/2025 5 methocarbamol (Robaxin) 750 MG tablet Take 1 tablet by mouth 4 times a day as needed for muscle spasms. 120 tablet 06/25/2025 5 tamsulosin (Flomax) 0.4 MG 24 hr capsule Take 1 capsule by mouth 1 time each day with dinner. 30 capsule 06/25/2025 5 documented as of this encounter Miscellaneous Notes * Discharge Summary - Quentin Anderson MD - 07/04/2025 2:50 PM EDT HOSPITAL MEDICINE DISCHARGE SUMMARY Hospitalization Admit Date/Time: 06/28/2025 9:28 PM Admitting Attending: Lizzie Cadena Discharge Date: 07/04/2025 Discharge Attending Physician: Quentin Anderson MD PCP name and Address: Murray Prajapati MD [address] [place] [address] [address] / [address] [id number] Referring provider name and address: No referring provider defined for this encounter. Chief Concern, Brief History of Present Illness, and Hospital Course 70 year old man with decompensated cirrhosis admitted following prostate cancer surgery. Required ICU care for hemodynamic instability and hepatic encephalopathy, now improved. Remained admitted for cystoscopy with ureteral stent placement. Discharged home good complete a course of antimicrobial the rapy. He will follow up with hepatology and Urology after discharge. Hospital course by problem: Sepsis from ascending UTI: Purulent drainage from left flank robotic port incision site suggestive of peritonitis. Required ICU care for hemodynamic stabilization. Initiated on broad-spectrum antibiotics. Swab from wound showed GNR on gram stain then staph epi on culture after more than 24 hours. Blood cultures remained negative. Urine culture with insignificant growth of fungus. Received IV antibiotics during admission then transitioned to oral for discharge. - continue fluconazole to complete a 14 day course for funguria (through 07/13) - continue levofloxacin and metronidazole to complete a 10 day course for peritonitis (through 07/08/25) 2. Chronically decompensated cirrhosis: History of alcoholic cirrhosis with chronic decompensation including varices and chronic coagulopathy. No alcohol intake for several months. Hepatic encephalopathy, now improved. Diuretics and carvedilol held in the setting of sepsis, carvedilol resumed on discharge. Hyponatremia and renal function initially stabilized, creatinine slightly elevated today after surgery but expected to improve with normalization of oral intake and functional status. - Continue home carvedilol and lactulose - Hold furosemide for 1 week after discharge or until instructed to resume by outpatient team 3. Nephrolithiasis: Nonobstructive 7 mm stone on the right as well as bladder stone and bladder thickening. Cystoscopy 07/03/25 with ureteral stenting. - Continue tamsulosin to facilitate stone passage - Follow up with Urology 4. Resected prostate cancer: Robot assisted radical prostatectomy with lymph node dissection 06/12/25 complicated by acute blood loss anemia and sepsis as above. Surgery believed to be curative. 5. Hyperlipidemia: Continue home statin 6. PE: Continue therapeutic enoxaparin Surgeries and Procedures 07/03/25 cystoscopy with right ureteral stent and bladder stone extraction Medication List PAUSE taking these medications furosemide 40 MG tablet Wait to take this until: July 14, 2025 Hold for one week unless otherwise instructed by your outpatient team Commonly known as: Lasix Take 1 tablet by mouth 2 times a day. .. acetaminophen 500 MG tablet Commonly known as: Tylenol Take 1 tablet by mouth every 8 hours as needed for pain. atorvastatin 10 MG tablet Commonly known as: Lipitor Take 1 tablet by mouth daily. carvedilol 3.125 MG tablet Commonly known as: Coreg Take 1 tablet by mouth 2 times a day. enoxaparin 120 MG/0.8ML solution prefilled syringe Commonly known as: Lovenox Inject 0.8 mL under the skin every 12 hours. fluconazole 200 MG tablet Commonly known as: Diflucan Take 1 tablet by mouth daily for 9 doses. Start taking on: July 05, 2025 lactulose 10 GM/15ML solution Commonly known as: Chronulac Take 15 mL by mouth daily. levoFLOXacin 750 MG tablet Commonly known as: Levaquin Take 1 tablet by mouth daily for 4 doses. methocarbamol 750 MG tablet Commonly known as: Robaxin Take 1 tablet by mouth 4 times a day as needed for muscle spasms. metroNIDAZOLE 500 MG tablet Commonly known as: Flagyl Take 1 tablet by mouth every 8 hours for 14 doses. miconazole 2 % powder Commonly known as: Micotin Apply to affected areas nserrbvirhao-hrtf-ylorniuh-folic acid chewable tablet Chew 1 tablet daily. naloxone 4 mg/0.1 mL nasal spray Commonly known as: Narcan 1. Give 1 spray in nostril for no/slow breathing or cannot wake after opioid use 2. Call 911 3. Repeat in other nostril if symptoms continue oxyCODONE 5 MG immediate release tablet Commonly known as: Roxicodone Take 1 tablet by mouth every 6 hours as needed for moderate pain for up to 3 days. tamsulosin 0.4 MG 24 hr capsule Commonly known as: Flomax Take 1 capsule by mouth 1 time each day with dinner. Vitamin E 450 MG (1000 UT) capsule Take 1,000 Units by mouth 1 (one) time each day. Where to Get Your Medications These medications were sent to [facility] - [place], [place] - [address] [facility] [id number] acetaminophen 500 MG tablet fluconazole 200 MG tablet levoFLOXacin 750 MG tablet metroNIDAZOLE 500 MG tablet miconazole 2 % powder naloxone 4 mg/0.1 mL nasal spray oxyCODONE 5 MG immediate release tablet Discharge Diagnosis Medical Problems Active and Resolved Hospital Problems Hospital Severe obesity (BMI 35.0-39.9) with comorbidity (CMS/HCC) Prostate CA (CMS/HCC) Anemia Overview Addendum 06/18/2025 9:35 AM by Lillian Carrera PA Lab Results Component Value Date HGB 12.0 (L) 06/17/2025 , Lab Results Component Value Date HCT 35.2 (L) 06/17/2025 Stable Will continue to monitor Transfuse as appropriate for Hgb>8 Iron, Folate, B12 as appropriate Hyperlipidemia Leukocytosis Cirrhosis of liver (CMS/HCC) Renal calculi Overview Signed 06/12/2025 10:13 PM by Raymond Katz APRN Resume home medications when appropriate Monitor kidney function with daily labs Hypotension * (Principal) Sepsis, localized, in operative wound (CMS/HCC) UTI (urinary tract infection) Right ureteral stone Post Discharge Instructions Resume prior LMWH Continue antibiotics as instructed Hold furosemide for one week or until otherwise instructed by outpatient team Outpatient Follow-Up Future Appointments Date Time Provider Department Center 07/22/2025 7:[address] [facility] 07/22/2025 8:45 AM Dyllan Paul MD [facility] Test Results Pending At Discharge Pending Labs Order Current Status Calculi (Kidney Stone) Analysis In process Pertinent Physical Exam At Time of Discharge Vitals: 07/04/25 1235 BP: 95/64 Pulse: 85 Resp: 15 Temp: 36.6 ??C (97.8 ??F) SpO2: 92% General: no apparent distress, recumbent in bed HEENT: extra-ocular movements in-tact, no icterus/injection, mucous membranes moist CV: regular rate and rhythm, no murmurs appreciated Chest: clear to auscultation bilaterally Abdomen: soft with no guarding, mild diffuse tenderness Extremities: 1+ pitting bilateral lower extremity edema : external collection device in place Psych: euthymic with normal attention span Discharge Disposition/Condition Disposition: Home Condition: Stable (s/sx potential problems absent or manageable) I spent >30 minutes of patient care and instruction time in preparation for this discharge. Quentin Anderson MD, [facility], FACP [employer] Division of Hospital Medicine * Progress Notes - Bianka Hansen MD - 07/04/2025 2:06 PM EDT [facility] Urology Inpatient Progress Note Primary Attending: Dyllan Paul MD Procedure(s): Cystoscopy with right retrograde pyelogram, right stent was placed without strings, Basket stone extraction of bladder stone SUBJECTIVE: NAEON. Tolerating a full diet with no nausea or vomiting. Has not been out of bed yet since surgery. Patient is tolerating stent well with no discomfort or irritation. PHYSICAL EXAM: Temp: [36.4 ??C (97.5 ??F)-36.7 ??C (98 ??F)] 36.6 ??C (97.8 ??F) Heart Rate: [84-93] 85 Resp: [12-18] 15 BP: (95-136)/(60-80) 95/64 SpO2: [92 %-100 %] 92 % I O Shift I O 24Hrs LDAs No intake/output data recorded. I/O last 3 completed shifts: In: 600 (5.3 mL/kg) [I.V.:600 (5.3 mL/kg)] Out: 360 (3.2 mL/kg) [Urine:360 (0.1 mL/kg/hr)] Weight: 114 kg GEN: NAD HEENT: NCAT, EOMI RESP: Equal bilateral chest rise, normal work of breathing on 1.5L NC CV: Regular rate, appears well perfused ABD: Non-distended, soft, non-tender. Incisions c/d/I. : purewick saturated with yellow urine EXT: No gross deformities MSK: Full ROM in BL UE NEURO: No focal deficits, alert and oriented PSYCH: Normal mood and affect LABS: Results from last 7 days Lab Units 07/04/25 0526 WBC 10*3/uL 10.13 HEMOGLOBIN g/dL 11.3* HEMATOCRIT % 33.0* PLATELETS 10*3/uL 114* Results from last 7 days Lab Units 07/04/25 0526 SODIUM mmol/L 127* POTASSIUM mmol/L 4.3 CHLORIDE mmol/L 98 CO2 mmol/L 18* BUN mg/dL 41* CREATININE mg/dL 1.83* EGFR mL/min/1.73m*2 39.2 GLUCOSE mg/dL 147* CALCIUM mg/dL 7.6* Results from last 7 days Lab Units 06/30/25 1820 COLOR UA Dark Yellow SPEC GRAV U >1.030* PH UA 6.0 PROTEIN UR mg/dL 30* GLUCOSE UA mg/dL Negative KETONES UA mg/dL Trace* LEUKOCYTES UA Moderate* NITRITE UA Negative RBC, URINE /HPF >50* WBC, URINE /HPF 21 - 50* SQUAMOUS /HPF 0 - 2 BACTERIA UR HPF Present Results from last 7 days Lab Units 06/29/25 0200 URINE CULTURE 10,000 - 100,000 CFU/mL Diutina rugosa (formerly Celestina rugosa)* HOSPITAL PROBLEM LIST: Principal Problem: Sepsis, localized, in operative wound (CMS/HCC) Active Problems: Severe obesity (BMI 35.0-39.9) with comorbidity (CMS/HCC) Prostate CA (CMS/HCC) Anemia Hyperlipidemia Leukocytosis Cirrhosis of liver (CMS/HCC) Renal calculi Hypotension UTI (urinary tract infection) Right ureteral stone ASSESSMENT: Scout Lowe is a 70 y.o. male with PMH hepatic encephalopathy/decompensated alcoholiccirrhosis, recent PE on AC, HTN, HLD, 6 mm non-obstructing right proximal ureteral stone, bladder stones, unfavorable intermediate risk prostate cancer s/p RALP w/PLND on 06/12/25 c/b transected umbilical vein and significant blood loss requiring ex lap, blood transfusions, and pressor support presenting to the ED due to fever, lethargy, and abdominal pain. He was admitted from 06/12-06/25 s/p RALP with ICU course complicated by acute hepatic encephalopathy and decompensated alcohol induced cirrhosis. He was eventually downgraded to the floor and catheter was removed prior to discharge after Fl cystogram demonstrated no evidence of anastomotic leak 06/20. Discharged 06/25. He was re-admitted on 06/29/25 for management of co-morbidities including hepatic encephalopathy/decompensated alcoholic cirrhosis, AUD, recent PE/DVT, and hyponatremia. CTA C/A/P demonstrated no hydronephrosis bilaterally, an approximately 7 mm non-obstructing right proximal-mid ureteral stone, bladder wall thickening, and a 1 cm bladder stone. Urine culture grew 10-100k cfu/ml diutina rugosa. Wound culture grew numerous polymorphonuclear leukocytes, rare gram negative rods, gram positive cocci. Per medicine team, patient is currently on fluconazole, levofloxacin, and metronidazole. He is now day 1 s/p cystoscopy with R ureteral stent placement and extraction of a bladder stone. He is currently AF, HDS on room air. His WBC is down-trending at 10.13, hemoglobin is stable at 11.3.Creatinine 1.83, up from 1.54 yesterday. PLAN - No acute surgical interventions at this time - Urology team will arrange for outpatient definitive stone surgery at a later date - urology team to sign off Roberto Earl, MS4 I saw and evaluated the patient with the medical student and have made edits to the documentation above as needed. Bianka Hansen MD Department of Urology, PGY-1 Pager: [phone] Cosigned by Dyllan Paul MD at 07/07/2025 7:10 PM EDT Associated attestation - Dyllan Paul MD - 07/07/2025 7:10 PM EDT I saw and evaluated the patient. I discussed the case with the resident/fellow and agree with the findings and plan as documented. * Nursing Note - Ju Herrera RN - 07/04/2025 2:00 PM EDT Patient AVS summary printed and discharge education provided. [id number] delivered at bedside. PIVs removed with tips intact. PT currently en route to discharge lounge where his will pick him up and transport him home. * Care Plan - Ju Herrera RN - 07/04/2025 12:00 PM EDT Problem: Adult Inpatient Plan of Care Goal: Plan of Care Review Outcome: Ongoing, Progressing Flowsheets (Taken 07/04/2025 1159) Progress: improving Outcome Evaluation: abx q2h turns Plan of Care Reviewed With: patient Problem: Adult Inpatient Plan of Care Goal: Patient-Specific Goal (Individualized) Outcome: Ongoing, Progressing Flowsheets (Taken 07/04/2025 1000) Patient/Family-Specific Goals (Include Timeframe): pt will cooperate with q2h turns throughout shift. pt will have 3-4 BM by end of shift. Individualized Care Needs: abx incentive spirometry q2h turns lactulose Anxieties, Fears or Concerns: none stated at this time Problem: Adult Inpatient Plan of Care Goal: Absence of Hospital-Acquired Illness or Injury Intervention: Identify and Manage Fall Risk Flowsheets (Taken 07/04/2025 1000) Safety Promotion/Fall Prevention: clutter-free environment maintained lighting adjusted room organization consistent safety round/check completed Problem: Adult Inpatient Plan of Care Goal: Absence of Hospital-Acquired Illness or Injury Intervention: Prevent Skin Injury Flowsheets (Taken 07/04/2025 1159) Body Position: turned Skin Protection: protective footwear used Problem: Adult Inpatient Plan of Care Goal: Absence of Hospital-Acquired Illness or Injury Intervention: Prevent and Manage VTE (Venous Thromboembolism) Risk Flowsheets (Taken 07/04/2025 1159) VTE Prevention/Management: SCDs (sequential compression devices) on Problem: Adult Inpatient Plan of Care Goal: Absence of Hospital-Acquired Illness or Injury Intervention: Prevent Infection Flowsheets (Taken 07/04/2025 115) Infection Prevention: visitors restricted/screened cohorting utilized Problem: Adult Inpatient Plan of Care Goal: Optimal Comfort and Wellbeing Intervention: Monitor Pain and Promote Comfort Flowsheets (Taken 07/03/20252226 by Claude Ash, RN) Pain Management Interventions: medication (see MAR) Problem: Adult Inpatient Plan of Care Goal: Optimal Comfort and Wellbeing Intervention: Provide Person-Centered Care Flowsheets (Taken 07/03/2025 0006 by Marielena Munoz, TIERA) Trust Relationship/Rapport: care explained choices provided Problem: Skin Injury Risk Increased Goal: Skin Health and Integrity Intervention: Optimize Skin Protection Flowsheets Taken 07/04/20251158 by Ju Herrera RN Skin Protection: protective footwear used Head of Bed (HOB) Positioning: HOB at 30-45 degrees Taken 07/03/2025 1850 by Jackeline Deleon RN Activity Management: activity adjusted per tolerance Taken 07/03/2025 0006 by Marielena Munoz RN Pressure Reduction Techniques: frequent weight shift encouraged Problem: Fall Injury Risk Goal: Absence of Fall and Fall-Related Injury Intervention: Identify and Manage Contributors Flowsheets Taken 07/04/20251158 by Ju Herrera RN Self-Care Promotion: meal set-up provided adaptive equipment use encouraged Taken 07/03/2025 111 by Jing Field RN Medication Review/Management: medications reviewed Problem: Fall Injury Risk Goal: Absence of Fall and Fall-Related Injury Intervention: Promote Injury-Free Environment Flowsheets (Taken 07/04/2025 1000) Safety Promotion/Fall Prevention: clutter-free environment maintained lighting adjusted room organization consistent safety round/check completed Problem: Pain Acute Goal: Optimal Pain Control and Function Intervention: Prevent or Manage Pain Flowsheets (Taken 07/03/2025 1117 by Jing Fiedl, TIERA) Sensory Stimulation Regulation: care clustered Bowel Elimination Promotion: ambulation promoted Problem: Functional Deficit Goal: Improved Balance and Postural Control Intervention: Optimize Balance and Safe Activity Flowsheets Taken 07/04/2025 115 by Ju Herrera RN Self-Care Promotion: meal set-up provided adaptive equipment use encouraged Taken 07/04/2025 1000 by Ju Herrera RN Safety Promotion/Fall Prevention: clutter-free environment maintained lighting adjusted room organization consistent safety round/check completed Taken 07/03/2025 1850 by Jackeline Deleon RN Activity Management: activity adjusted per tolerance Problem: Self-Care Deficit Goal: Improved Ability to Complete Activities of Daily Living Intervention: Promote Activity and Functional [place] Flowsheets Taken 07/04/2025 1159 by Ju Herrera RN Self-Care Promotion: meal set-up provided adaptive equipment use encouraged Taken 07/03/2025 1117 by Jing Field RN Activity Assistance Provided: assistance, stand-by * Clinician Note - Estiven Scruggs IV - 07/04/2025 11:58 AM EDT Physical Therapy Attempt Patient Name: Scout Lowe Today's Date: 07/04/2025 Patient was attempted to be seen by physical therapy 07/04/2025 for PT Treatment however patient notavailable (Pt is currently preparing for discharge to home and no further therapy is needed at thistime.). Physical therapy team will follow-up (Will continue to follow this patient if the dischargeis cancelled or postponed.). Written by Estiven Scruggs IV on 07/04/25 at 3:02 PM. * Laury Espino - Ju Herrera RN - 07/04/2025 11:54 AM EDT Images from the original note were not included. [id number] Using an Incentive Spirometer An incentive spirometer is a handheld device that helps you do deep breathing exercises after surgery. It also helps lower the risk of breathing problems if you have a lung disease or condition. These exercises expand your lungs, aid in circulation, and may help prevent pneumonia. Deep breathing exercises also help you breathe better and improve lung function by: ? Keeping your lungs clear. ? Making your breathing muscles stronger. ? Helping prevent respiratory complications or problems. The incentive spirometer gives you a way to take an active part in your recovery. A nurse or respiratory therapist will teach you breathing exercises. To do these exercises, you will breathe in through your mouth and not your nose. The incentive spirometer only works correctly if you breathe in through your mouth. Deep breathing expands the lungs, aids circulation, and helps prevent pneumonia. Your health care provider or their staff will tell you how to use the device, your targeted volume(s), and provide other helpful tips to prevent complications (such as pain, dizziness, feeling lightheaded) when blowing in the incentive spirometer. Steps to clear lungs Step 1. Exhale normally. Then, inhale normally. ? Relax and breathe out. Step 2. Place your lips tightly around the mouthpiece. ? Make sure the device is upright and not tilted. ? Sit up and breathe out (exhale) fully. ? Tightly seal your lips around the mouthpiece. Step 3. Inhale as much air as you can through the mouthpiece. Don't breathe through your nose. ? Breathe in (inhale) slowly and deeply. ? Hold your breath long enough to keep the balls, piston, or disk raised for at least 3 to 5 seconds, or as instructed by your health care provider. ? Exhale slowly to allow the balls, piston, or disk to fall before repeating. Note: Some spirometers have an indicator to let you know that you are breathing in too fast. If theindicator goes off, breathe in more slowly. Step 4. Repeat the exercise regularly. ? Do sets of 10 exercises every hour while you're awake, or as instructed by your health care provider. Don't do more than 30 breaths in each set. ? If you were taught deep breathing and coughing exercises, do them regularly as instructed by yourprovider, nurse, or respiratory therapist. Follow-up care Make a follow-up appointment as directed by your health care provider. Also, follow up with your provider as advised if your symptoms don't improve or continue to get worse. When to contact your doctor Contact your health care provider right away if you have: ? A fever 100.4?? (38??C) or higher, or as advised by your provider. ? Brownish, bloody, or smelly sputum (phlegm that you cough up). Call 911 Call 911 if any of these occur: ? Shortness of breath that doesn't get better after taking your medicine ? Cool, moist, pale, or blue skin ? Trouble breathing or swallowing, wheezing ? Fainting or loss of consciousness ? Feeling of dizziness or weakness, or a sudden drop in blood pressure ? Feeling very ill ? Lightheadedness ? Chest pain or rapid heart rate Last Reviewed Date: 2025 00:00:00 ?? [id number] [employer]. All rights reserved. This information is not intended as a substitute for professional medical care. Always follow your healthcare professional's instructions. * Ju Adamson RN - 07/04/2025 11:53 AM EDT Images from the original note were not included. Kidney Stones - Video Kidney stones are a common problem, affecting about 12% of men and 5% of women. Stones are typically caused by an imbalance in the urinary system: too little water, too much oxalate, or too much calcium. In this video, you'll find out how the stones develop and what you can do to prevent them. To view the video go to this web address: [email or web address] Or, scan this QR code with your smart phone Last Reviewed Date: 2020 00:00:00 ?? [employer]. All rights reserved. This information is not intended as a substitute for professional medical care. Always follow your healthcare professional's instructions. * Ju Adamson RN - 07/04/2025 11:53 AM EDT Images from the original note were not included. 1547 Sepsis: Know the Signs Look at the symptoms below. Do you have any? If so, follow the instructions for that signal. Pleasespeak with your nurse or doctor if you have questions or concerns. Stop! It is an emergency if: You have any Caution symptom plus one of these symptoms: ? Very bad pain ? Fast breathing ? Skin is pale or has color change ? Hard to wake up or confused Go to the Emergency Room or call 911 if you have any of these! Caution! Tell your nurse or doctor if: You have 2 or more of these symptoms: ? Feel very tired ? Feeling chills or very cold ? Temperature is below 96.8F or above 101F ? Fast heartbeat ? Shortness of breath These may be early signs of sepsis. They need to be treated as soon as possible. All clear! You do not have any symptoms! ? Not feeling tired ? No confusion or problems thinking ? No chills or fever ? No breathing problems * Progress Notes - Richa Raymundo RN - 07/04/2025 11:09 AM EDT Case Management Discharge Note Scout Lowe 70 y.o. male CSN: [id number] Admission: 06/28/2025 9:28 PM Primary Problem: Sepsis, localized, in operative wound (CMS/[facility]) Primary Anthropology Professor: Primary Caregiver: Self Assistance Available at Discharge: Availability of Care Givers (#Hours): 24 hours Family/Anthropology Professor(s) Willingness Assessed to care for patient at home: Yes (pt's present at bedside) Family/Anthropology Professor(s) Readiness Assessed to care for patient at home: Yes Discharge Facility/Level of Care Needs: Discharge Facility/Level of Care Needs: 1-Home or Self Care Patient/Family Anticipated Services at Transition: Patient/Family Anticipated Services at Transition: none DME/Equipment Needed after Discharge: Equipment Currently Used at Home: walker, rolling, tub bench Equipment Needed After Discharge: none (per PT/OT pt has needed DME at home) Readmission Within the Last 30 Days: Readmission Within the Last 30 Days: unable to assess Medicare Documentation: Medicare Second Notice?: No (Medicare not primary) Follow-up: No follow-up provider specified. Discharge Transportation: Transportation Anticipated: family or friend will provide Transportation Home at Discharge: Family/Friend will Provide Has discharge transport been arranged?: No What day is the transport expected?: 07/04/25 What time is the transport expected?: 1600 Follow Up Transport: Transportation Needed to Follow up Appoinments: Family/Friend will Provide Additional Comments: Visited with pt along in multidisciplinary team in morning rounda. Per attending physician dr. Anderson pt is medically ready to d/c. Pt was evaluated by PT/OT and currently has home w/assist recs, per PT/OT pt has needed DME at home. Pt's is present at the bedside and will provide pt with transportation home at d/c and assistance as needed. There is no other d/c needs reported or identified at this time. RN CM will remain available and assist as needed. Richa Raymundo RN * Care Plan - Claude Ash RN - 07/03/2025 8:00 PM EDT Problem: Adult Inpatient Plan of Care Goal: Plan of Care Review Outcome: Ongoing, Progressing Flowsheets Taken 07/04/2025 0303 by Claude Ash RN Progress: improving Taken 07/03/20252051 by Jackeline Deleon RN Plan of Care Reviewed With: patient Taken 07/01/2025 0751 by Anastasia Starr RN Outcome Evaluation: patient will have adequate pain control during shift. Goal: Patient-Specific Goal (Individualized) Outcome: Ongoing, Progressing Flowsheets (Taken 07/04/2025 0303) Patient/Family-Specific Goals (Include Timeframe): pt will have a pain rating less than 6/10 duringshift Individualized Care Needs: surgical pain Anxieties, Fears or Concerns: surgery Goal: Absence of Hospital-Acquired Illness or Injury Outcome: Ongoing, Progressing Intervention: Identify and Manage Fall Risk Flowsheets (Taken 07/03/2025 1117 by Jing Field, RN) Safety Promotion/Fall Prevention: activity supervised Intervention: Prevent Skin Injury Flowsheets (Taken 07/03/2025 1850 by Jackeline Deleon, RN) Body Position: foot of bed elevated neutral body alignment Skin Protection: transparent dressing maintained protective footwear used Intervention: Prevent and Manage VTE (Venous Thromboembolism) Risk Flowsheets (Taken 07/03/2025 191 by Jackeline Deleon, RN) VTE Prevention/Management: bilateral lower extremity SCDs (sequential compression devices) on Intervention: Prevent Infection Flowsheets (Taken 07/03/20251116 by Jing Field RN) Infection Prevention: environmental surveillance performed Goal: Optimal Comfort and Wellbeing Outcome: Ongoing, Progressing Intervention: Monitor Pain and Promote Comfort Flowsheets (Taken 07/03/20252226) Pain Management Interventions: medication (see MAR) Intervention: Provide Person-Centered Care Flowsheets (Taken 07/03/20255 by Marielena Munoz RN) Trust Relationship/Rapport: care explained choices provided Problem: Skin Injury Risk Increased Goal: Skin Health and Integrity Outcome: Ongoing, Progressing Intervention: Optimize Skin Protection Flowsheets Taken 07/03/20251849 by Jackeline Deleon, TIERA Activity Management: activity adjusted per tolerance Taken 07/03/20255 by Marielena Munoz RN Pressure Reduction Techniques: frequent weight shift encouraged Intervention: Promote and Optimize Oral Intake Flowsheets (Taken 07/03/20255 by Marielena Munoz, TIERA) Oral Nutrition Promotion: social interaction promoted Nutrition Interventions: supplemental drinks provided Problem: Infection Goal: Absence of Infection Signs and Symptoms Outcome: Ongoing, Progressing Intervention: Prevent or Manage Infection Flowsheets Taken 07/03/20251116 by Jing Field RN Fever Reduction/Comfort Measures: lightweight bedding Taken 07/03/20255 by Marielena Munoz RN Infection Management: aseptic technique maintained Isolation Precautions: precautions maintained Problem: Fall Injury Risk Goal: Absence of Fall and Fall-Related Injury Outcome: Ongoing, Progressing Intervention: Identify and Manage Contributors Flowsheets (Taken 07/03/20251116 by Jing Field, RN) Medication Review/Management: medications reviewed Self-Care Promotion: independence encouraged Intervention: Promote Injury-Free Environment Flowsheets (Taken 07/03/20251116 by Jing Field, RN) Safety Promotion/Fall Prevention: activity supervised Problem: Pain Acute Goal: Optimal Pain Control and Function Outcome: Ongoing, Progressing Intervention: Prevent or Manage Pain Flowsheets Taken 07/03/20251116 by Jing Field RN Sensory Stimulation Regulation: care clustered Bowel Elimination Promotion: ambulation promoted Sleep/Rest Enhancement: awakenings minimized Medication Review/Management: medications reviewed Taken 07/03/20255 by Marielena Munoz, TIERA Complementary Therapy: music therapy provided Problem: Functional Deficit Goal: Improved Balance and Postural Control Outcome: Ongoing, Progressing Intervention: Optimize Balance and Safe Activity Flowsheets Taken 07/03/2025 1850 by Jackeline Deleon RN Activity Management: activity adjusted per tolerance Taken 07/03/2025 1117 by Jing Field RN Safety Promotion/Fall Prevention: activity supervised Self-Care Promotion: independence encouraged Problem: Self-Care Deficit Goal: Improved Ability to Complete Activities of Daily Living Outcome: Ongoing, Progressing Intervention: Promote Activity and Functional [place] Flowsheets (Taken 07/03/2025 1117 by Jing Field, TIERA) Activity Assistance Provided: assistance, stand-by Self-Care Promotion: independence encouraged * Anesthesia PACU Signout - Amanuel Hyatt MD - 07/03/2025 7:10 PM EDT Patient: Scout Lowe Anesthesia Type: general Vitals Value Taken Time BP 107/70 07/03/25 19:05 Temp 36.6 ??C (97.9 ??F) 07/03/25 18:50 Pulse 86 07/03/25 19:09 Resp 12 07/03/25 19:09 SpO2 98 % 07/03/25 19:09 Vitals shown include unfiled device data. Anesthesia PACU Signout Patient location during evaluation: PACU Patient participation: complete - patient participated Level of consciousness: baseline and awake Pain management: adequate (pain score 0-3) Airway patency: natural airway Hydration status: acceptable PONV: none Cardiovascular status: acceptable and hemodynamically stable Respiratory status: acceptable, spontaneous ventilation, unassisted and nonlabored ventilation Discharge Disposition: admit to inpatient unit Comments: Patient is s/p Procedure(s) and Anesthesia Type: * CYSTOSCOPY, WITH URETERAL STENT INSERTION - Choice * CYSTOLITHOTOMY - General. Patient remains HDS on room air, neurologically appropriate, pain is controlled, and tolerating PO w/o N/V. Patient is appropriate for discharge from PACU to inpatient unit for continued postop care. * Op Note - Sherry Santos MD - 07/03/2025 5:52 PM EDT Date of Surgery: 07/03/25 Procedure Performed: Cystoscopy with right retrograde pyelogram right stent was placed without strings Basket stone extraction of bladder stone Preoperative Diagnosis: Right ureteral stone Postoperative Diagnosis: Same Surgeon: Dyllan Paul MD Linen Grader Surgeon: Sherry Santos MD Intraoperative Findings: Intraoperative fluoroscopy demonstrated non dilated intrarenal anatomy and was used to confirm proper placement of the ureteral stents right stent was placed without strings Bladder stone successfully removed with basket Indications: Scout Lowe is a 70 y.o. male with a right ureteral stone. After discussion of treatment options patient elected to proceed with cystoscopy and right ureteral stent placement. Anesthesia: General Complications: None Drains: 6 Fr x 24 cm JJ stent without strings Specimens: None EBL: Min. Procedure in Detail: After informed consent was obtained, the patient was brought into the surgical suite. The patient was placed in the dorsal lithotomy position. General anesthesia was administered, SCDs were placed onthe patient and preoperative antibiotics were administered prior to the start of the case. A 21 Fr rigid cystoscope was introduced into the patient's urethral meatus and advanced into the urinary bladder. The bladder was examined and demonstrated a small bladder stone. The right ureteral orifice was cannulated with a Sensor wire which was advanced to the level of therenal pelvis. An open ended ureteral catheter was advanced over the wire. Contrast was injected in a retrograde fashion showing normal intrarenal anatomy. The open ended catheter was exchanged for a sensor wire. A 6 Fr x 24 cm JJ stent without strings was placed over the sensor wire and the proximal curl position was confirmed via fluoroscopy. The distal curl was visualized within the bladder. The bladder stone was removed using a 2.4 Fr zero tip basket. The bladder was emptied prior to the conclusion of the case. The patient tolerated the procedure well and was awakened from anesthesia without difficulty. Postoperative Plan: The patient will remained admitted. Continue ureteral stent. They will be schedule for definitive stone surgery at a later date. Sherry Santos MD Cosigned by Dyllan Paul MD at 07/07/2025 7:10 PM EDT Associated attestation - Dyllan Paul MD - 07/07/2025 7:10 PM EDT I was present for the entirety of the procedure(s). * Progress Notes - Quentin Anderson MD - 07/03/2025 3:07 PM EDT HOSPITAL MEDICINE PROGRESS NOTE HPI: 70 y.o. year old male admitted 06/28/2025 with cirrhosis and prostate cancer. Initially admitted after robot assisted prostatectomy with lymph node dissection with intraoperative bleeding and hemodynamic instability. Required critical care, now improved. Course complicated by hepatic encephalopathy, now improved. Planning on ureteral stent placement today with discharge soonthereafter. SUBJECTIVE: He feels okay today. He really hopes to return home soon, but understands that on the night in the hospital may be reasonable, particularly if his procedure is late in the afternoon. Eating and drinking okay when not procedural a fasting. No significant pain. Still making urine andhaving some bowel output. Updated at bedside today. OBJECTIVE: Vitals: 07/03/25 0820 BP: 117/68 Pulse: 84 Resp: Temp: 36.3 ??C (97.4 ??F) SpO2: 91% Exam: General: no apparent distress, recumbent in bed HEENT: extra-ocular movements in-tact, no icterus/injection, mucous membranes moist CV: regular rate and rhythm, no murmurs appreciated Chest: clear to auscultation bilaterally Abdomen: soft with no guarding, mild diffuse tenderness Extremities: 1+ pitting bilateral lower extremity edema : external collection device in place Psych: euthymic with normal attention span DATA: CBC WBC 10.55 (H) Hb 11.3 (L) Plt 110 (L) Hct 32.2 (L) ANC ?? INR 1.9 (H), PTT ??, Anti-Xa ?? BMP Na 128 (L) Cl 98 BUN 36 (H) Glu 90 K 3.8 Co2 19 (L) Cr 1.54 (H) Ca 7.5 (L) iCa ?? LFT AST 42 AlkPhos 128 (H) T Prot 4.8 (L) ALK 24 Bili 1.4 (H) Alb ?? D.Bili ?? MELD 3.0: 26 at 07/03/2025 6:21 AM MELD-Na: 25 at 07/03/2025 6:21 AM Calculated from: Serum Creatinine: 1.54 mg/dL at 07/03/2025 6:21 AM Serum Sodium: 128 mmol/L at 07/03/2025 6:21 AM Total Bilirubin: 1.4 mg/dL at 07/03/2025 6:21 AM Serum Albumin: 2.2 g/dL at 07/03/2025 6:21 AM INR(ratio): 1.9 at 07/03/2025 6:21 AM Age at listing (hypothetical): 70 years Sex: Male at 07/03/2025 6:21 AM ASSESSMENT & PLAN: 70 y.o. year old male with decompensated cirrhosis admitted following prostate cancer surgery. Required ICU care for hemodynamic instability and hepatic encephalopathy, now improved. Planning for cystoscopy today with likely discharge tomorrow morning. Sepsis from ascending UTI: Purulent drainage from left robotic port incision site suggestive of peritonitis. Requiring ICU care for hemodynamic stabilization. Initiated on broad-spectrum antibiotics.Swab from wound showed GNR on gram stain then staph epi on culture after more than 24 hours. Blood c ultures remained negative. Urine culture with insignificant growth of fungus. Tentatively planning to transition to quinolone on discharge to complete 10 day course. - continue fluconazole to complete a 14 day course for funguria (through 07/13) - continue cefepime and metronidazole, transition to levofloxacin and metronidazole to complete a 10 day course (through 07/08/25) 2. Nephrolithiasis: Nonobstructive 7 mm stone on the right as well as bladder stone and bladder thickening. Planning for cystoscopy today with ureteral stenting. Surgery is nonemergent, Mets less than 4, RCRI low for cardiac events but at increased risk of complications including infection and bleeding because of cirrhosis. Child-Michel class A. Dysnatremia suggests increased risk for poor outcomes. Appreciate Urology involvement. - Continue tamsulosin to facilitate stone passage 3. Chronically decompensated cirrhosis: History of alcoholic cirrhosis with chronic decompensation including varices and chronic coagulopathy. No alcohol intake for several months. Hepatic encephalopathy, now improved. Diuretics and carvedilol held in the setting of sepsis. Hyponatremia and renal function stabilized. - continue lactulose - resume carvedilol and diuretics after surgery if HR and BP allow 4. PE: Chronically maintained on therapeutic enoxaparin, held now for surgery. - Resume enoxaparin tonight if no active bleeding during surgery 5. Resected prostate cancer: Robot assisted radical prostatectomy with lymph node dissection 06/12/25 complicated by acute blood loss anemia and sepsis as above. Surgery believed to be curative. 6. Hyperlipidemia: Continue home statin FEN: regular with thiamine and folate Ppx: therapeutic anticoagulation as above Code: Full Code Medications at time of this note Scheduled: atorvastatin, 10 mg, Oral, Daily bisacodyl, 10 mg, Rectal, Daily cefepime, 2 g, Intravenous, q8h [Held by provider] enoxaparin, 110 mg, Subcutaneous, q12h fluconazole, 200 mg, Oral, Daily lactulose, 20 g, Oral, TID metroNIDAZOLE, 500 mg, Oral, q8h mupirocin, 1 Application, Each Nostril, BID sodium chloride, 10 mL, Intravenous, q12h tamsulosin, 0.4 mg, Oral, Daily with dinner Continuous: As needed: bisacodyl, 10 mg, Daily PRN methocarbamol, 500 mg, 4x daily PRN ondansetron ODT, 4 mg, q6h PRN Or ondansetron, 4 mg, q6h PRN oxyCODONE, 5 mg, q6h PRN sodium chloride, 10 mL, PRN Quentin Anderson MD, [facility], FACP [employer] Division of Hospital Medicine * Care Plan - Jing Field RN - 07/03/2025 11:21 AM EDT Problem: Adult Inpatient Plan of Care Goal: Plan of Care Review Outcome: Ongoing, Progressing Flowsheets Taken 07/03/2025 1117 by Jing Field RN Progress: improving Plan of Care Reviewed With: patient Taken 07/01/2025 0751 by Anastasia Starr, RN Outcome Evaluation: patient will have adequate pain control during shift. Goal: Patient-Specific Goal (Individualized) Outcome: Ongoing, Progressing Flowsheets (Taken 07/03/2025 0900) Patient/Family-Specific Goals (Include Timeframe): pt will remain free from harm or injury during the shift Individualized Care Needs: safety Anxieties, Fears or Concerns: none stated Goal: Absence of Hospital-Acquired Illness or Injury Outcome: Ongoing, Progressing Intervention: Identify and Manage Fall Risk Flowsheets (Taken 07/03/2025 111) Safety Promotion/Fall Prevention: activity supervised Intervention: Prevent Skin Injury Flowsheets (Taken 07/03/20251116) Body Position: weight shifting Skin Protection: incontinence pads utilized Intervention: Prevent and Manage VTE (Venous Thromboembolism) Risk Flowsheets (Taken 07/03/20251116) VTE Prevention/Management: medication Intervention: Prevent Infection Flowsheets (Taken 07/03/20251116) Infection Prevention: environmental surveillance performed Goal: Optimal Comfort and Wellbeing Outcome: Ongoing, Progressing Problem: Skin Injury Risk Increased Goal: Skin Health and Integrity Outcome: Ongoing, Progressing Problem: Infection Goal: Absence of Infection Signs and Symptoms Outcome: Ongoing, Progressing Intervention: Prevent or Manage Infection Flowsheets Taken 07/03/20251116 by Jing Field RN Fever Reduction/Comfort Measures: lightweight bedding Taken 07/03/2025 0006 by Marielena Munoz RN Infection Management: aseptic technique maintained Isolation Precautions: precautions maintained Problem: Fall Injury Risk Goal: Absence of Fall and Fall-Related Injury Outcome: Ongoing, Progressing Intervention: Identify and Manage Contributors Flowsheets (Taken 07/03/20251116) Medication Review/Management: medications reviewed Self-Care Promotion: independence encouraged Problem: Pain Acute Goal: Optimal Pain Control and Function Outcome: Ongoing, Progressing Intervention: Develop Pain Management Plan Flowsheets (Taken 07/03/20251116) Pain Management Interventions: medication (see MAR) pain management plan reviewed with patient/caregiver Intervention: Prevent or Manage Pain Flowsheets (Taken 07/03/20251116) Sensory Stimulation Regulation: care clustered Bowel Elimination Promotion: ambulation promoted Sleep/Rest Enhancement: awakenings minimized Medication Review/Management: medications reviewed Problem: Functional Deficit Goal: Improved Balance and Postural Control Outcome: Ongoing, Progressing Intervention: Optimize Balance and Safe Activity Flowsheets (Taken 07/03/2025 1117) Activity Management: activity encouraged Safety Promotion/Fall Prevention: activity supervised Self-Care Promotion: independence encouraged Problem: Self-Care Deficit Goal: Improved Ability to Complete Activities of Daily Living Outcome: Ongoing, Progressing Intervention: Promote Activity and Functional [place] Flowsheets (Taken 07/03/2025 1117) Activity Assistance Provided: assistance, stand-by Self-Care Promotion: independence encouraged * Significant Event - Sherry Santos MD - 07/03/2025 6:11 AM EDT Patient to OR today for cystoscopy and right ureteral stent placement - History and physical note at admission/most recent progress note reviewed and without significantchanges - The risks, benefits, indications, contraindications, and surgical alternatives were explained to the patient. Specifically, the risks of surgery, including bleeding, infection, injury to nearby organs or structures, need for additional surgery or procedures, wound complications, and complicationsof general anesthesia. Commonly associated risks of the procedure where also discussed with the patient in detial. The patient participated in the discussion and was given an opportunity to ask questions. All questions where answered to the patient's verbal satisification. - Informed consent was reviewed and signed. - NPO since midnight Sherry Santos MD * Care Plan - Marielena Munoz RN - 07/03/2025 12:09 AM EDT Problem: Adult Inpatient Plan of Care Goal: Plan of Care Review Outcome: Ongoing, Progressing Flowsheets (Taken 07/03/20255) Progress: improving Plan of Care Reviewed With: patient Goal: Patient-Specific Goal (Individualized) Outcome: Ongoing, Progressing Flowsheets (Taken 07/02/20251999) Patient/Family-Specific Goals (Include Timeframe): Patient will remain free of injury this shift Individualized Care Needs: Safety Anxieties, Fears or Concerns: None Stated Goal: Absence of Hospital-Acquired Illness or Injury Outcome: Ongoing, Progressing Intervention: Identify and Manage Fall Risk Flowsheets (Taken 07/03/20255) Safety Promotion/Fall Prevention: activity supervised Intervention: Prevent Skin Injury Flowsheets (Taken 07/03/20255) Body Position: weight shifting Skin Protection: incontinence pads utilized Intervention: Prevent and Manage VTE (Venous Thromboembolism) Risk Flowsheets (Taken 07/03/20255) VTE Prevention/Management: medication Intervention: Prevent Infection Flowsheets (Taken 07/03/20255) Infection Prevention: environmental surveillance performed Goal: Optimal Comfort and Wellbeing Outcome: Ongoing, Progressing Intervention: Monitor Pain and Promote Comfort Flowsheets (Taken 07/03/20255) Pain Management Interventions: medication (see MAR) Intervention: Provide Person-Centered Care Flowsheets (Taken 07/03/20255) Trust Relationship/Rapport: care explained choices provided Problem: Skin Injury Risk Increased Goal: Skin Health and Integrity Outcome: Ongoing, Progressing Intervention: Optimize Skin Protection Flowsheets (Taken 07/03/20255) Activity Management: activity adjusted per tolerance Pressure Reduction Techniques: frequent weight shift encouraged Pressure Reduction Devices: specialty bed utilized Skin Protection: incontinence pads utilized Head of Bed (HOB) Positioning: HOB at 30 degrees Intervention: Promote and Optimize Oral Intake Flowsheets (Taken 07/03/20255) Oral Nutrition Promotion: social interaction promoted Nutrition Interventions: supplemental drinks provided Problem: Infection Goal: Absence of Infection Signs and Symptoms Outcome: Ongoing, Progressing Intervention: Prevent or Manage Infection Flowsheets (Taken 07/03/20255) Infection Management: aseptic technique maintained Fever Reduction/Comfort Measures: lightweight bedding Isolation Precautions: precautions maintained Problem: Fall Injury Risk Goal: Absence of Fall and Fall-Related Injury Outcome: Ongoing, Progressing Intervention: Identify and Manage Contributors Flowsheets (Taken 07/03/20255) Medication Review/Management: medications reviewed Self-Care Promotion: independence encouraged BADL personal objects within reach Intervention: Promote Injury-Free Environment Flowsheets (Taken 07/03/20255) Safety Promotion/Fall Prevention: activity supervised Problem: Pain Acute Goal: Optimal Pain Control and Function Outcome: Ongoing, Progressing Intervention: Develop Pain Management Plan Flowsheets (Taken 07/03/20255) Pain Management Interventions: medication (see MAR) Intervention: Prevent or Manage Pain Flowsheets (Taken 07/03/20255) Sensory Stimulation Regulation: care clustered Complementary Therapy: music therapy provided Bowel Elimination Promotion: ambulation promoted Sleep/Rest Enhancement: awakenings minimized Medication Review/Management: medications reviewed Problem: Functional Deficit Goal: Improved Balance and Postural Control Outcome: Ongoing, Progressing Intervention: Optimize Balance and Safe Activity Flowsheets (Taken 07/03/20255) Activity Management: activity adjusted per tolerance Safety Promotion/Fall Prevention: activity supervised Self-Care Promotion: independence encouraged BADL personal objects within reach Problem: Self-Care Deficit Goal: Improved Ability to Complete Activities of Daily Living Outcome: Ongoing, Progressing Intervention: Promote Activity and Functional [place] Flowsheets (Taken 07/03/20255) Activity Assistance Provided: assistance, stand-by Self-Care Promotion: independence encouraged BADL personal objects within reach * Query Clarification Note - Quentin Anderson MD - 07/02/2025 3:47 PM EDT Physician Clarification After review of the clinical indicators listed below, please provide a diagnosis that correlates with these findings: [x]-Coagulopathy []-Other condition, please specify []-Lab values without clinical significance This documentation will become part of the patient's medical record. * Progress Notes - Quentin Anderson MD - 07/02/2025 3:24 PM EDT [facility] MEDICINE PROGRESS NOTE HPI: 70 y.o. year old male admitted 06/28/2025 with cirrhosis and prostate cancer. Initially admitted after robot assisted prostatectomy with lymph node dissection with intraoperative bleeding and hemodynamic instability. Admitted to ICU and stabilized. Course complicated by hepatic encephalopathy, now improved. Planning on ureteral stent placement tomorrow then discharge home soon thereafter. SUBJECTIVE: He feels better today. He did notice the reduced frequency and vital signs overnight and says it helped him sleep. He was still bothered early this morning for blood draws. Eating better, drinking well. Having bowel and bladder output, no longer having diarrhea. Collateral history obtained from at bedside: She reports that she is comfortable with him returning home as soon as possible after surgery, but is amenable to staying until Monday if that is felt to be prudent. OBJECTIVE: Vitals: 07/02/25 1100 BP: 115/63 Pulse: 87 Resp: 20 Temp: SpO2: 98% Exam: General: no apparent distress, recumbent in bed HEENT: extra-ocular movements in-tact, no icterus/injection, mucous membranes moist CV: regular rate and rhythm, no murmurs appreciated Chest: clear to auscultation bilaterally Abdomen: Healing midline surgical incision, soft with no guarding, mild diffuse tenderness Extremities: 1+ pitting bilateral lower extremity edema : No monroe, external collection device in place Psych: euthymic with normal attention span, thinking more organized today DATA: BMP Na 129 (L) Cl 102 BUN 31 (H) Glu 93 K 3.7 Co2 20 (L) Cr 1.34 (H) Ca 7.1 (L) iCa ?? LFT AST 37 AlkPhos 114 T Prot 4.7 (L) ALK 26 Bili 1.7 (H) Alb ?? D.Bili ?? Discussed with Dr. Hansen of urology. MELD 3.0: 22 at 06/30/2025 3:11 PM MELD-Na: 23 at 06/30/2025 3:11 PM Calculated from: Serum Creatinine: 1.08 mg/dL at 06/30/2025 3:11 PM Serum Sodium: 130 mmol/L at 06/30/2025 3:11 PM Total Bilirubin: 2.8 mg/dL at 06/28/2025 9:39 PM Serum Albumin: 2.7 g/dL at 06/28/2025 9:39 PM INR(ratio): 1.8 at 06/28/2025 9:39 PM Age at listing (hypothetical): 70 years Sex: Male at 06/30/2025 3:11 PM ASSESSMENT & PLAN: 70 y.o. year old male with decompensated cirrhosis admitted following prostate cancer surgery. Required ICU care for hemodynamic instability and hepatic encephalopathy, now improved. Planning for cystoscopy tomorrow and discharge home soon thereafter. Sepsis from ascending UTI: Purulent drainage from left port incision site suggestive of peritonitis. Requiring ICU care for hemodynamic stabilization. Initiated on broad-spectrum antibiotics. Swab from wound showed GNR on gram stain then staph epi on culture after more than 24 hours. Blood culturesremained negative. Urine culture with insignificant growth of fungus. Tentatively planning to transition to quinolone on discharge. - continue fluconazole for possible funguria given recent urologic procedure - continue cefepime and metronidazole 2. Nephrolithiasis: Nonobstructive 7 mm stone on the right as well as bladder stone and bladder thickening. Planning for cystoscopy tomorrow with ureteral stenting. Surgeries nonemergent, Mets less than 4, RCRI low for cardiac events but at increased risk of complications including infection and bleeding because of cirrhosis. Child-Michel class A. Appreciate Urology involvement. - Continue tamsulosin to facilitate stone passage - Nothing by mouth after midnight tonight 3. Chronically decompensated cirrhosis: History of alcoholic cirrhosis with chronic decompensation including previous varices and chronic coagulopathy. No alcohol intake for several months. Hospitalization complicated by hepatic encephalopathy, now improved. Diuretics and carvedilol held in the setting of sepsis. Hyponatremia and renal function stabilized. - continue lactulose 4. Prostate cancer: Robot assisted radical prostatectomy with lymph node dissection 06/12/25 complicated by acute blood loss anemia and sepsis as above, now stabilized. Surgery believed to be curative. 5. PE: Chronically maintained on therapeutic enoxaparin, will hold tonight's dose for planned surgery tomorrow 6. Hypertension: Carvedilol held because of sepsis, resumption deferred for upcoming surgery 7. Hyperlipidemia: Continue home statin FEN: regular with thiamine and folate Ppx: therapeutic anticoagulation as above Code: Full Code Medications at time of this note Scheduled: atorvastatin, 10 mg, Oral, Daily bisacodyl, 10 mg, Rectal, Daily cefepime, 2 g, Intravenous, q8h enoxaparin, 110 mg, Subcutaneous, q12h fluconazole, 200 mg, Oral, Daily lactulose, 20 g, Oral, TID metroNIDAZOLE, 500 mg, Oral, q8h mupirocin, 1 Application, Each Nostril, BID sodium chloride, 10 mL, Intravenous, q12h tamsulosin, 0.4 mg, Oral, Daily with dinner Continuous: As needed: bisacodyl, 10 mg, Daily PRN methocarbamol, 500 mg, 4x daily PRN ondansetron ODT, 4 mg, q6h PRN Or ondansetron, 4 mg, q6h PRN oxyCODONE, 5 mg, q6h PRN sodium chloride, 10 mL, PRN Quentin Anderson MD, [facility], FACP [employer] Division of Hospital Medicine * Care Plan - Jing Field RN - 07/02/2025 10:53 AM EDT Problem: Adult Inpatient Plan of Care Goal: Plan of Care Review Outcome: Ongoing, Progressing Flowsheets Taken 07/02/2025 104 by Jing Field RN Progress: improving Plan of Care Reviewed With: patient Taken 07/01/2025 0751 by Anastasia Starr RN Outcome Evaluation: patient will have adequate pain control during shift. Goal: Patient-Specific Goal (Individualized) Outcome: Ongoing, Progressing Flowsheets (Taken 07/02/2025 0800) Patient/Family-Specific Goals (Include Timeframe): pt will remain free from harm or injury during the shift Individualized Care Needs: safety Anxieties, Fears or Concerns: none stated Goal: Absence of Hospital-Acquired Illness or Injury Outcome: Ongoing, Progressing Intervention: Identify and Manage Fall Risk Flowsheets (Taken 07/02/2025 104) Safety Promotion/Fall Prevention: activity supervised Intervention: Prevent Skin Injury Flowsheets Taken 07/02/2025 0800 by Jing Field RN Body Position: turned heels elevated Taken 07/01/2025 2332 by Marielena Munoz RN Skin Protection: incontinence pads utilized Intervention: Prevent and Manage VTE (Venous Thromboembolism) Risk Flowsheets (Taken 07/02/2025 104) VTE Prevention/Management: medication Intervention: Prevent Infection Flowsheets (Taken 07/02/2025 104) Infection Prevention: environmental surveillance performed Goal: Optimal Comfort and Wellbeing Outcome: Ongoing, Progressing Problem: Skin Injury Risk Increased Goal: Skin Health and Integrity Outcome: Ongoing, Progressing Problem: Infection Goal: Absence of Infection Signs and Symptoms Outcome: Ongoing, Progressing Intervention: Prevent or Manage Infection Flowsheets (Taken 07/02/2025 104) Infection Management: aseptic technique maintained Fever Reduction/Comfort Measures: lightweight clothing lightweight bedding Isolation Precautions: precautions initiated Problem: Fall Injury Risk Goal: Absence of Fall and Fall-Related Injury Outcome: Ongoing, Progressing Intervention: Identify and Manage Contributors Flowsheets (Taken 07/02/2025 1045) Medication Review/Management: medications reviewed Self-Care Promotion: independence encouraged BADL personal objects within reach Intervention: Promote Injury-Free Environment Flowsheets (Taken 07/02/20251044) Safety Promotion/Fall Prevention: activity supervised Problem: Pain Acute Goal: Optimal Pain Control and Function Outcome: Ongoing, Progressing Intervention: Develop Pain Management Plan Flowsheets (Taken 07/02/20251044) Pain Management Interventions: medication (see MAR) Intervention: Prevent or Manage Pain Flowsheets (Taken 07/02/20251044) Sensory Stimulation Regulation: care clustered Bowel Elimination Promotion: ambulation promoted Sleep/Rest Enhancement: awakenings minimized Medication Review/Management: medications reviewed Problem: Functional Deficit Goal: Improved Balance and Postural Control Outcome: Ongoing, Progressing Intervention: Optimize Balance and Safe Activity Flowsheets (Taken 07/02/20251044) Activity Management: activity adjusted per tolerance Safety Promotion/Fall Prevention: activity supervised Self-Care Promotion: independence encouraged BADL personal objects within reach Problem: Self-Care Deficit Goal: Improved Ability to Complete Activities of Daily Living Outcome: Ongoing, Progressing Intervention: Promote Activity and Functional [place] Flowsheets (Taken 07/02/20251044) Self-Care Promotion: independence encouraged BADL personal objects within reach * Care Plan - Marielena Munoz RN - 07/01/2025 11:40 PM EDT Problem: Adult Inpatient Plan of Care Goal: Plan of Care Review Outcome: Ongoing, Progressing Flowsheets (Taken 07/01/20252331) Progress: improving Plan of Care Reviewed With: patient Goal: Patient-Specific Goal (Individualized) Outcome: Ongoing, Progressing Flowsheets (Taken 07/01/20250) Patient/Family-Specific Goals (Include Timeframe): Patient will remain free of injury this shift Individualized Care Needs: Safety Anxieties, Fears or Concerns: none stated Goal: Absence of Hospital-Acquired Illness or Injury Outcome: Ongoing, Progressing Intervention: Identify and Manage Fall Risk Flowsheets (Taken 07/01/20252331) Safety Promotion/Fall Prevention: activity supervised clutter-free environment maintained Intervention: Prevent Skin Injury Flowsheets (Taken 07/01/20252331) Body Position: turned heels elevated Skin Protection: incontinence pads utilized Intervention: Prevent and Manage VTE (Venous Thromboembolism) Risk Flowsheets (Taken 07/01/20252331) VTE Prevention/Management: medication Intervention: Prevent Infection Flowsheets (Taken 07/01/20252331) Infection Prevention: environmental surveillance performed Goal: Optimal Comfort and Wellbeing Outcome: Ongoing, Progressing Intervention: Monitor Pain and Promote Comfort Flowsheets (Taken 07/01/20252331) Pain Management Interventions: medication (see MAR) Intervention: Provide Person-Centered Care Flowsheets (Taken 07/01/20252331) Trust Relationship/Rapport: care explained choices provided Problem: Skin Injury Risk Increased Goal: Skin Health and Integrity Outcome: Ongoing, Progressing Intervention: Optimize Skin Protection Flowsheets (Taken 07/01/20252331) Activity Management: activity adjusted per tolerance Pressure Reduction Techniques: frequent weight shift encouraged Pressure Reduction Devices: specialty bed utilized Skin Protection: incontinence pads utilized Head of Bed (HOB) Positioning: HOB at 30 degrees Intervention: Promote and Optimize Oral Intake Flowsheets (Taken 07/01/20252331) Oral Nutrition Promotion: social interaction promoted Nutrition Interventions: supplemental drinks provided Problem: Infection Goal: Absence of Infection Signs and Symptoms Outcome: Ongoing, Progressing Intervention: Prevent or Manage Infection Flowsheets (Taken 07/01/20252331) Infection Management: aseptic technique maintained Fever Reduction/Comfort Measures: lightweight bedding Isolation Precautions: precautions maintained Problem: Fall Injury Risk Goal: Absence of Fall and Fall-Related Injury Outcome: Ongoing, Progressing Intervention: Identify and Manage Contributors Flowsheets (Taken 07/01/20252331) Medication Review/Management: medications reviewed Self-Care Promotion: independence encouraged BADL personal objects within reach Intervention: Promote Injury-Free Environment Flowsheets (Taken 07/01/20252331) Safety Promotion/Fall Prevention: activity supervised clutter-free environment maintained Problem: Pain Acute Goal: Optimal Pain Control and Function Outcome: Ongoing, Progressing Intervention: Develop Pain Management Plan Flowsheets (Taken 07/01/20252331) Pain Management Interventions: medication (see MAR) Intervention: Prevent or Manage Pain Flowsheets (Taken 07/01/20252331) Sensory Stimulation Regulation: care clustered Bowel Elimination Promotion: ambulation promoted Sleep/Rest Enhancement: awakenings minimized Medication Review/Management: medications reviewed Problem: Functional Deficit Goal: Improved Balance and Postural Control Outcome: Ongoing, Progressing Intervention: Optimize Balance and Safe Activity Flowsheets (Taken 07/01/20252331) Activity Management: activity adjusted per tolerance Safety Promotion/Fall Prevention: activity supervised clutter-free environment maintained Self-Care Promotion: independence encouraged BADL personal objects within reach Problem: Self-Care Deficit Goal: Improved Ability to Complete Activities of Daily Living Outcome: Ongoing, Progressing Intervention: Promote Activity and Functional [place] Flowsheets (Taken 07/01/2025 8992) Activity Assistance Provided: assistance, 2 people Self-Care Promotion: independence encouraged BADL personal objects within reach * Progress Notes - Pepito Iyer PharmD - 07/01/2025 2:23 PM EDT Pharmacokinetic Consult - Therapeutic Drug Monitoring HPI and Hospital Course: Scout Lowe is a 70 y.o. male presenting with sepsis . Vancomycin therapy has been discontinued per primary team. Pharmacist will sign off from dosing and monitoring vancomycin. Please re-order a pharmacist to dose consult or discuss with your team pharmacist if re- initiation of vancomycin therapy is needed in the future. Submitted by: Pepito Iyer PharmD 07/01/2025 2:23 PM * Progress Notes - Quentin Anderson MD - 07/01/2025 2:05 PM EDT HOSPITAL MEDICINE PROGRESS NOTE HPI: 70 y.o. year old male admitted 06/28/2025 with Chief Complaint Patient presents with Fever Post-op Problem Fatigue History significant for alcoholic cirrhosis. Developed prostate cancer, admitted for robot assistedprostatectomy with lymph node dissection with intraoperative bleeding and hemodynamic instability. Admitted to ICU and stabilized. Course complicated by hepatic encephalopathy which now seems to be responding to lactulose. SUBJECTIVE: He reports feeling okay today. Explosive bowel movements overnight which he attributes to lactulose. No significant pain. He reports plans include possible cystoscopy on . Collateral history obtained from at bedside: She reports that he has not had issues with hepatic encephalopathy prior to admission, although she notes that he does frequently have difficulty with sleeping including difficulty during hospitalization. She believes his cognition is near baseline. OBJECTIVE: Vitals: 07/01/25 1205 BP: 125/66 Pulse: 93 Resp: 21 Temp: 36.5 ??C (97.7 ??F) SpO2: 94% Exam: General: no apparent distress HEENT: extra-ocular movements in-tact, no icterus/injection, mucous membranes moist CV: regular rate and rhythm, no murmurs appreciated Chest: clear to auscultation bilaterally Abdomen: Healing midline surgical incision, soft with no guarding, mild diffuse tenderness Extremities: 1+ pitting bilateral lower extremity edema : No [place], external collection device in place Psych: Euthymic with normal attention span but slightly disorganized thinking DATA: CBC WBC 14.93 (H) Hb 11.1 (L) Plt 112 (L) Hct 32.6 (L) ANC 8.14 (H) BMP Na 128 (L) Cl 98 BUN 28 (H) Glu 106 (H) K 4.2 Co2 20 (L) Cr 1.31 (H) Ca 7.5 (L) iCa ?? Mg 2.7 (H), Phos 3.0 LFT AST 38 AlkPhos 124 (H) T Prot 4.8 (L) ALK 31 Bili 2.1 (H) Alb ?? D.Bili ?? Wound swab positive for Gram-negative rods on Gram stain, staph epi became positive on culture after more than 24 hours from collection of the sample Imaging: CT scan of cirrhosis but no hydronephrosis MELD 3.0: 22 at 06/30/2025 3:11 PM MELD-Na: 23 at 06/30/2025 3:11 PM Calculated from: Serum Creatinine: 1.08 mg/dL at 06/30/2025 3:11 PM Serum Sodium: 130 mmol/L at 06/30/2025 3:11 PM Total Bilirubin: 2.8 mg/dL at 06/28/2025 9:39 PM Serum Albumin: 2.7 g/dL at 06/28/2025 9:39 PM INR(ratio): 1.8 at 06/28/2025 9:39 PM Age at listing (hypothetical): 70 years Sex: Male at 06/30/2025 3:11 PM ASSESSMENT & PLAN: 70 y.o. year old male with decompensated cirrhosis O2 following prostate cancer surgery. History significant for alcoholic cirrhosis and prostate cancer, admitted after prostate resection with lymph node dissection. Required ICU care for hemodynamic instability and hepatic enc ephalopathy, now seems to be improving. Tentatively planning for cystoscopy and ureteral stent placement . Sepsis from ascending UTI: Purulent drainage from left port incision site and fevers with tachycardia and hypotension. Requiring ICU care for hemodynamic stabilization. Initiated on broad-spectrum antibiotics. Blood cultures remained negative. Urine culture with insignificant growth of fungus, treating given recent urologic procedure. Wound swab had Gram-negative pathogens on Gram stain, staph epi grew after more than 24 hours following collection probably indicative of contaminant or normal skin kelsi. As such, risks of continued vancomycin therapy (worsening hyponatremia, worsening volume overload, drug resistance) probably outweigh benefits) coverage for possible MRSA infection in the setting of negative cultures for MRSA). -continue fluconazole - Continue cefepime and metronidazole -discontinue vancomycin 2. Decompensated cirrhosis: History of alcoholic cirrhosis with chronic decompensation including previous varices. Hospitalization complicated by hepatic encephalopathy although reports no history of encephalopathy prior to admission. Diuretics and carvedilol held in the setting of sepsis. Hypo natremia and renal function have worsened, perhaps related in part to brisk response to lactulose overnight. - Reduced lactulose 3. Prostate cancer: Robot assisted radical prostatectomy with lymph node dissection 06/12/2025. Complicated by acute blood loss anemia and sepsis. Now stabilized as above. 4. Nephrolithiasis: Nonobstructive 7 mm stone on the right as well as bladder stone and bladder thickening. Appreciate Urology involvement. Now known to have bladder stones and nonobstructive nephrolithiasis. Tentatively planning for cystoscopy . Appreciate Urology involvement. - Continue tamsulosin to facilitate stone passage - Nothing by mouth after midnight Monday night 5. Hyperlipidemia: Continue home statin 6. Hypertension: Carvedilol held 7. PE: Chronically maintained on therapeutic enoxaparin. 8. Alcohol use disorder: No alcohol intake for several months FEN: regular with thiamine and folate Ppx: therapeutic anticoagulation as above Code: Full Code Medications at time of this note Scheduled: atorvastatin, 10 mg, Oral, Daily bisacodyl, 10 mg, Rectal, Daily cefepime, 2 g, Intravenous, q8h enoxaparin, 110 mg, Subcutaneous, q12h fluconazole, 200 mg, Oral, Daily lactulose, 20 g, Oral, TID metroNIDAZOLE, 500 mg, Oral, q8h mupirocin, 1 Application, Each Nostril, BID sodium chloride, 10 mL, Intravenous, q12h tamsulosin, 0.4 mg, Oral, Daily with dinner vancomycin, 1,500 mg, Intravenous, q24h Continuous: As needed: bisacodyl, 10 mg, Daily PRN methocarbamol, 500 mg, 4x daily PRN ondansetron ODT, 4 mg, q6h PRN Or ondansetron, 4 mg, q6h PRN Or ondansetron, 4 mg, q6h PRN oxyCODONE, 5 mg, q6h PRN sodium chloride, 10 mL, PRN Quentin Anderson MD, [facility], FACP [employer] Division of Hospital Medicine * Progress Notes - Richa Raymundo RN - 07/01/2025 1:30 PM EDT Case Management Adult Initial Progress Note Scout Lowe 70 y.o. male CSN: [id number] Admission: 06/28/2025 9:28 PM Primary Problem: Sepsis, localized, in operative wound (CMS/HCC) Print Room Worker reviewed chart and spoke with pt and patient's to complete this Initial Case Management Assessment. PCP: Murray Prajapati MD Emergency Contact: Extended Emergency Contact Information Primary Emergency Contact: MARILUZJAVON Mobile Relation: Spouse Chief Librarian Circulation Department needed? No Insurance: Primary Visit Coverage Payer Plan Sponsor Code Group Number Group Name DANIKA DENNY/INES [facility] [id number] Primary Visit Coverage Subscriber Subscriber ID Subscriber Name Subscriber [facility] Subscriber Address [id number] LOWEJAVON Rosalio [phone] [facility] [address] [id number] Secondary Visit Coverage Payer Plan Sponsor Code Group Number Group Name MEDICARE MEDICARE PART A ONLY Secondary Visit Coverage Subscriber Subscriber ID Subscriber Name Subscriber N Subscriber Address [id number] SCOUT LOWE [phone] [id number] [place] [id number] Patient information: Primary Caregiver: Self Accompanied by/Relationship: Javon Support System: Immediate family Daily Living Activities: Functional Status: Independent Living Arrangements: Family Type of Residence: Single Level [id number] [facility] [id number] Current DME: Equipment Currently Used at Home: walker, rolling, tub bench Anticipated Discharge Date: TBD Patient's Discharge Goal: to d/c home with his once medically appropriate Assistance Available at Discharge: as needed Discharge Transport: family Follow Up Transport: family Home Health / Home Infusion / Outpatient Dialysis Services: n/a Living Will/Advance Directive/Power of Licensed Funeral Director /Guardian: Have you reviewed your Advance Directive and is it valid for this stay?: Yes Advance Directive: Patient does not have advance directive Information Provided on Healthcare Directives: No Pre-existing DNR/DNI Order: No Patient Requests Assistance: No Additional Comments: Visited with the pt along with multidisciplinary team in morning rounds. Per attending physician dr. Anderson pt is not medically ready to d/c. At the time of the visit pt's was present at the bedside. Pt is stating that he lives with his as well as to be independent with ADL's. From DME pt has RW and tub bench. Pt's EC is his Javon, ph#[phone]. Pt was evaluated by PT/OT and currently has home w/assist recs and no DME. Per pt his family will provide him with transportation home at d/c and assistance as needed. RN CM will continue to follow and assist with d/c plan and as needed. Richa Raymundo RN * Progress Notes - Bianka Hansen MD - 07/01/2025 11:20 AM EDT [facility] Urology Inpatient Progress Note Primary Attending: Dyllan Paul MD Procedure(s): RALP 06/12/25 c/b bleeding requiring ex-lap, rbc transfusion, pressors SUBJECTIVE: NAEON. Pt states he feels similarly to yesterday. Notes decreased appetite. Denies subjective fevers, chills, nausea. BM recorded overnight. No questions or concerns. PHYSICAL EXAM: Temp: [36.3 ??C (97.4 ??F)-36.6 ??C (97.8 ??F)] 36.6 ??C (97.8 ??F) Heart Rate: [93-99] 99 Resp: [16-20] 19 BP: (101-128)/(66-80) 122/80 SpO2: [90 %-93 %] 93 % I O Shift I O 24Hrs LDAs I/O this shift: In: 120 [P.O.:120] Out: - I/O last 3 completed shifts: In: 3473.3 (32 mL/kg) [P.O.:1440; IV Piggyback:2032.3] Out: 1025 (9.4 mL/kg) [Urine:1025 (0.3 mL/kg/hr)] Weight: 108.5 kg GEN: NAD HEENT: NCAT, EOMI RESP: Equal bilateral chest rise, normal work of breathing on 1L NC CV: Regular rate, appears well perfused ABD: Non-distended, soft, non-tender. Incisions c/d/I. DANILO site covered with no shadowing. : deferred EXT: No gross deformities MSK: Full ROM in BL UE NEURO: No focal deficits, alert and oriented PSYCH: Normal mood and affect LABS: Results from last 7 days Lab Units 07/01/25 0459 WBC 10*3/uL 14.93* HEMOGLOBIN g/dL 11.1* HEMATOCRIT % 32.6* PLATELETS 10*3/uL 112* Results from last 7 days Lab Units 07/01/25 0459 SODIUM mmol/L 128* POTASSIUM mmol/L 4.2 CHLORIDE mmol/L 98 CO2 mmol/L 20* BUN mg/dL 28* CREATININE mg/dL 1.31* EGFR mL/min/1.73m*2 58.6 GLUCOSE mg/dL 106* CALCIUM mg/dL 7.5* Results from last 7 days Lab Units 06/30/25 1820 COLOR UA Dark Yellow SPEC GRAV U >1.030* PH UA 6.0 PROTEIN UR mg/dL 30* GLUCOSE UA mg/dL Negative KETONES UA mg/dL Trace* LEUKOCYTES UA Moderate* NITRITE UA Negative RBC, URINE /HPF >50* WBC, URINE /HPF 21 - 50* SQUAMOUS /HPF 0 - 2 BACTERIA UR HPF Present Results from last 7 days Lab Units 06/29/25 0200 URINE CULTURE 10,000 - 100,000 CFU/mL Diutina rugosa (formerly Celestina rugosa)* IMAGING: All imaging reviewed personally by me 06/28/25 CT Ango A/P - posterior dependent atelectasis of lungs - significant ascites - no HDN b/l - nonobstructing 6 mm calculus proximal right ureter - Retained 10 mm bladder calculus 06/29/25 US Abdomen Liver, Pancreas, Bile Ducts IMPRESSION: Coarsened hepatic echotexture consistent with chronic parenchymal disease. Absent gallbladder HOSPITAL PROBLEM LIST: Principal Problem: Sepsis, localized, in operative wound (CMS/HCC) Active Problems: Severe obesity (BMI 35.0-39.9) with comorbidity (CMS/HCC) Prostate CA (CMS/HCC) Anemia Hyperlipidemia Leukocytosis Cirrhosis of liver (CMS/HCC) Renal calculi Hypotension UTI (urinary tract infection) ASSESSMENT: Scout Lowe is a 70 y.o. male with PMH hepatic encephalopathy/decompensated alcoholiccirrhosis, recent PE on AC, HTN, HLD, 6 mm non-obstructing right proximal ureteral stone, bladder stones, unfavorable intermediate risk prostate cancer s/p RALP w/PLND on 06/12/25 c/b transected umbilical vein and significant blood loss requiring ex lap, blood transfusions, and pressor support presenting to the ED due to fever, lethargy, and abdominal pain. He was admitted from 06/12-06/25 s/p RALP with ICU course complicated by acute hepatic encephalopathy and decompensated alcohol induced cirrhosis. He was eventually downgraded to the floor and catheter was removed prior to discharge after Fl cystogram demonstrated no evidence of anastomotic leak 06/20. Discharged 06/25. He is currently AF, HDS on 1 L/min O2. UA demonstrates yeast, neg bacteria neg nitrite, 11-20 WBC, >50 RBC. 06/29 Urine culture growing 10-100k cfu/ml diutina rugosa. 06/29 Wound culture growing numerous polymorphonuclear leukocytes, rare gram negative rods, gram positive cocci - Staphylococcus epi dermidis. CTA C/A/P demonstrates no hydronephrosis bilaterally, an approximately 7 mm non-obstructing right proximal-mid ureteral stone, bladder wall thickening, and a 1 cm bladder stone. Medicine team is managing antibiotic plan, per chart review he continues on Cefepime, Flagyl, Vanc, Diflucan. Ureteral stone appears to be non-obstructive based on imaging and pt's adequate urine output. Will con detail drafter stenting pt on if he is not clinically improving. PLAN: - recommend adding rectal suppository for constipation - recommend Daily AM CBC + BMP - Continue broad spectrum IV abx, tailor to culture results when available - follow blood, urine cultures - monitor UOP - Lactulose, bowel regimen to ensure daily soft bowel movements - MMPC - serial scrotal exams, recommend scrotal elevation and keeping area dry - encourage IS, OOB when able - Urology will continue to follow - PVR scans to ensure bladder is adequately emptying - continue flomax to to encourage ureteral stone passage - will consider bedside cystoscopy to remove bladder stone - will consider stent placement , recommend NPO starting at midnight am Bianka Hansen MD Cosigned by Dyllan Paul MD at 07/02/2025 5:54 PM EDT Associated attestation - Dyllan Paul MD - 07/02/2025 5:54 PM EDT I saw and evaluated the patient. I discussed the case with the resident/fellow and agree with the findings and plan as documented. * Care Plan - Anastasia Starr RN - 07/01/2025 7:54 AM EDT Problem: Adult Inpatient Plan of Care Goal: Plan of Care Review Outcome: Ongoing, Progressing Flowsheets (Taken 07/01/2025750) Progress: improving Outcome Evaluation: patient will have adequate pain control during shift. Plan of Care Reviewed With: patient Goal: Patient-Specific Goal (Individualized) Outcome: Ongoing, Progressing Flowsheets Taken 07/01/2025750 by Anastasia Starr RN Patient/Family-Specific Goals (Include Timeframe): patient will remain injury free during shift. Anxieties, Fears or Concerns: none stated Taken 06/30/20251999 by Faby Paige RN Individualized Care Needs: safety Goal: Absence of Hospital-Acquired Illness or Injury Outcome: Ongoing, Progressing Intervention: Identify and Manage Fall Risk Flowsheets (Taken 06/30/20251999 by Faby Paige RN) Safety Promotion/Fall Prevention: activity supervised clutter-free environment maintained fall prevention program maintained assistive device/personal items within reach lighting adjusted mobility aid in reach nonskid shoes/slippers when out of bed room organization consistent safety round/check completed toileting scheduled Intervention: Prevent Skin Injury Flowsheets Taken 07/01/2025 0751 by Anastasia Starr RN Body Position: heels elevated Taken 06/30/20251999 by Faby Paige RN Skin Protection: incontinence pads utilized Intervention: Prevent and Manage VTE (Venous Thromboembolism) Risk Flowsheets (Taken 07/01/2025 0400 by Faby Paige RN) VTE Prevention/Management: medication Intervention: Prevent Infection Flowsheets (Taken 06/29/2025 1523 by Tenisha Amador RN) Infection Prevention: environmental surveillance performed Goal: Optimal Comfort and Wellbeing Outcome: Ongoing, Progressing Intervention: Monitor Pain and Promote Comfort Flowsheets (Taken 07/01/2025 0751) Pain Management Interventions: position adjusted Intervention: Provide Person-Centered Care Flowsheets (Taken 06/29/2025 1523 by Tenisha Amador RN) Trust Relationship/Rapport: care explained * Care Plan - Faby Paige RN - 07/01/2025 3:11 AM EDT Problem: Adult Inpatient Plan of Care Goal: Plan of Care Review Outcome: Ongoing, Progressing Flowsheets Taken 07/01/2025 0310 by Faby Paige RN Progress: improving Taken 06/30/2025 0940 by Ju Herrera RN Plan of Care Reviewed With: patient spouse Goal: Patient-Specific Goal (Individualized) Outcome: Ongoing, Progressing Flowsheets (Taken 06/30/20251999) Patient/Family-Specific Goals (Include Timeframe): Pt will remain free from falls throughout the shift. Individualized Care Needs: safety Anxieties, Fears or Concerns: none expressed Goal: Absence of Hospital-Acquired Illness or Injury Outcome: Ongoing, Progressing Intervention: Identify and Manage Fall Risk Flowsheets (Taken 06/30/20251999) Safety Promotion/Fall Prevention: activity supervised clutter-free environment maintained fall prevention program maintained assistive device/personal items within reach lighting adjusted mobility aid in reach nonskid shoes/slippers when out of bed room organization consistent safety round/check completed toileting scheduled Goal: Optimal Comfort and Wellbeing Outcome: Ongoing, Progressing Intervention: Monitor Pain and Promote Comfort Flowsheets (Taken 06/30/20252055) Pain Management Interventions: medication (see MAR) emotional support pillow support provided position adjusted quiet environment facilitated rest Problem: Skin Injury Risk Increased Goal: Skin Health and Integrity Outcome: Ongoing, Progressing Intervention: Optimize Skin Protection Flowsheets Taken 07/01/2025199 by Faby Paige RN Head of Bed (HOB) Positioning: HOB elevated Taken 06/30/20251999 by Faby Paige RN Activity Management: activity adjusted per tolerance activity encouraged Skin Protection: incontinence pads utilized Taken 06/29/20251737 by Kassandra Handy RN Pressure Reduction Techniques: frequent weight shift encouraged heels elevated off bed Pressure Reduction Devices: specialty bed utilized Problem: Infection Goal: Absence of Infection Signs and Symptoms Outcome: Ongoing, Progressing Intervention: Prevent or Manage Infection Flowsheets Taken 06/30/20251999 by Faby Paige RN Isolation Precautions: protective Taken 06/29/20251737 by Kassandra Handy, TIERA Infection Management: aseptic technique maintained Fever Reduction/Comfort Measures: lightweight bedding lightweight clothing Problem: Fall Injury Risk Goal: Absence of Fall and Fall-Related Injury Outcome: Ongoing, Progressing Intervention: Identify and Manage Contributors Flowsheets (Taken 06/29/20251737 by Kassandra Handy, TIERA) Medication Review/Management: medications reviewed Self-Care Promotion: independence encouraged BADL personal objects within reach BADL personal routines maintained Problem: Pain Acute Goal: Optimal Pain Control and Function Outcome: Ongoing, Progressing Intervention: Develop Pain Management Plan Flowsheets (Taken 06/30/20252055) Pain Management Interventions: medication (see MAR) emotional support pillow support provided position adjusted quiet environment facilitated rest Problem: Functional Deficit Goal: Improved Balance and Postural Control Outcome: Ongoing, Progressing Intervention: Optimize Balance and Safe Activity Flowsheets (Taken 06/30/20251999) Activity Management: activity adjusted per tolerance activity encouraged Safety Promotion/Fall Prevention: activity supervised clutter-free environment maintained fall prevention program maintained assistive device/personal items within reach lighting adjusted mobility aid in reach nonskid shoes/slippers when out of bed room organization consistent safety round/check completed toileting scheduled Problem: Self-Care Deficit Goal: Improved Ability to Complete Activities of Daily Living Outcome: Ongoing, Progressing Intervention: Promote Activity and Functional [place] Flowsheets Taken 06/30/20251999 by Faby Paige RN Activity Assistance Provided: assistance, 2 people Taken 06/29/2025 1738 by Kassandra Handy, TIERA Self-Care Promotion: independence encouraged BADL personal objects within reach BADL personal routines maintained * Progress Notes - Lizzie Biggs MD - 06/30/2025 7:12 PM EDT Subjective Pt seen at bedside Feels improved today Mentions that ascitic leak has slowed after the surgeon placed a suture Decreased urine output reported by nursing Iv fluids started Counseled about further plan of care Review of Systems Constitutional: Positive for activity change and fatigue. Negative for fever. Respiratory: Negative for apnea and chest tightness. Cardiovascular: Positive for leg swelling. Negative for chest pain. Gastrointestinal: Positive for abdominal distention and abdominal pain. Objective Vitals Temp: [36.3 ??C (97.3 ??F)-36.9 ??C (98.4 ??F)] 36.3 ??C (97.4 ??F) Heart Rate: [89-98] 98 Resp: [16] 16 BP: (101-128)/(66-75) 128/75 Physical Exam Constitutional: Appearance: Normal appearance. He is normal weight. HENT: Head: Normocephalic and atraumatic. Right Ear: External ear normal. Left Ear: External ear normal. Nose: Nose normal. Mouth/Throat: Mouth: Mucous membranes are moist. Pharynx: Oropharynx is clear. Eyes: Extraocular Movements: Extraocular movements intact. Pupils: Pupils are equal, round, and reactive to light. Cardiovascular: Rate and Rhythm: Normal rate and regular rhythm. Pulses: Normal pulses. Heart sounds: Normal heart sounds. Pulmonary: Effort: Pulmonary effort is normal. Breath sounds: Normal breath sounds. Abdominal: General: A surgical scar is present. There is distension. Palpations: Abdomen is soft. There is fluid wave. Tenderness: There is abdominal tenderness. There is no guarding or rebound. Musculoskeletal: General: Normal range of motion. Cervical back: Normal range of motion. Skin: General: Skin is warm and dry. Capillary Refill: Capillary refill takes less than 2 seconds. Neurological: General: No focal deficit present. Mental Status: He is alert and oriented to person, place, and time. Mental status is at baseline. Psychiatric: Mood and Affect: Mood normal. Behavior: Behavior normal. Thought Content: Thought content normal. Judgment: Judgment normal. Assessment & Plan Sepsis, localized, in operative wound (CMS/HCC) Severe obesity (BMI 35.0-39.9) with comorbidity (CMS/HCC) Prostate CA (CMS/HCC) Anemia Hyperlipidemia Leukocytosis Cirrhosis of liver (CMS/HCC) Renal calculi Hypotension UTI (urinary tract infection) Scout Lowe is a 70 y.o. year-old male who has a past medical history hepatic encephalopathy/decompensated alcoholic cirrhosis, PE, hypertension, 6 mm nonobstructive right proximal ureteral stone, on Unfavorable intermediate risk prostate cancer s/p robotic assisted radical prostatectomy (RALP) with bilateral pelvic lymph stone resection on 06/12/2025, complicated by intraoperative transition ofa patent umbilical vein requiring a ex lap, blood transfusions, pressor support, who presented who presents to [facility] on on 06/28/2025 with chief complaint of fever, lethargy, abdominal pain and fluid leak. #Sepsis in setting of UTI, # Concern for postsurgical incision site - fever of max tempt of 100.8 at home, lethargy, worsening fatigue, generalized abdominal pain - Worsening purulent drainage from L port incision site, associated with mild erythema - SIRS: indicated by temperature, hypotension, tachycardia, respiration rate, possible source CT:Angio A/P 06/29 : There appears be some perivesical fat haziness, and wall thickening urinary bladder, which may be secondary to underdistention, however recommend correlation with urinalysis, or symptoms of UTI. Small amount of gas within the nondependent lumen may be residua of recent [place] catheterization. - Continue Vanc, Zosyn and Diflucan - Blood, Urine culture not finalized. Initial urine growing diutina rugosa - May consider ID consult - Strict I&O, - Serious scrotal exam , scrotal elevation - follow blood, urine cultures - monitor UOP # Transaminitis # Cirrhosis of Liver Decompensated by Hepatic Encephalopathy/ - EV: -EGD 08/13: gr1 ev; moderate PHG no focal liver lesion; Takes Coreg daily - HE: Lactulose. No asterixis on exam. - Ascites: - Ammonia level elevated -MELD 3.0: 22 at 06/30/2025 3:11 PM MELD-Na: 23 at 06/30/2025 3:11 PM Calculated from: Serum Creatinine: 1.08 mg/dL at 06/30/2025 3:11 PM Serum Sodium: 130 mmol/L at 06/30/2025 3:11 PM Total Bilirubin: 2.8 mg/dL at 06/28/2025 9:39 PM Serum Albumin: 2.7 g/dL at 06/28/2025 9:39 PM INR(ratio): 1.8 at 06/28/2025 9:39 PM Age at listing (hypothetical): 70 years Sex: Male at 06/30/2025 3:11 PM -Holding furosemide and Coreg for now in setting of sepsis - Ordered Lactulose 20 g PO TID or Rectal 200 once.Titrate to 3-5 bm/day, hold if diarrhea; - Trend BMP, mag, & phos - Start/Continue Thiamine daily - Start/Continue Vitamin B complex daily - I/O's, daily weights, 2g Na diet, daily protein intake of 1.2 to 1.5 g/kg and caloric intake of at least 35 Kcal/kg ideal body weight. (if not malnourished--then low protein. If malnutrition no need to hold protein) diet. - Monitor LFT's daily - Avoid NSAIDS/ASA, APAP <2 g/day if needed - Nutrition consult #Prostate CA - 06/12: robot-assisted radical prostatectomy, complicated by severed umbilical vein, 1.3L blood loss - Urology following - Continue home Flomax Normocytic Normochromic Anemia/Anemia of Chronic Disease - On admission : WRBC: 3.78 (L), Hgb 12.3 (L) (within baseline), HCT: 34.7 (L), MCV: 92, MCHC:35.4,RDW: 16.3, NRBC:0.0, Plan: - Monitor and transfuse if hgb<7 - LALITA improved - Differentials, include but are not limited to, (Pre-renal)diuretics, hypotension, hypovolemia, CHF, hypoalbuminemia, DARRON vs intrarenal, hepatorenal) Plan: - Avoid NSAID/Nephrotoxin (ACEI/ARBs/aminoglycosides sharon ) (metformin, gabapentin, cefepime, morphine) - Renal dose medications - Strict I&O - Repeat BMP in the AM #Renal calculi, asymptomatic -CTA C/A/P demonstrates no hydronephrosis bilaterally, an approximately 7 mm non-obstructing right proximal-mid ureteral stone, bladder wall thickening, and a 1 cm bladder stone - Monitor kidney function with daily labs - Daily PVR scans #Scrotal edema, and subcutaneous edema at the base of the penis, no soft tissue emphysema in the scrotum, or perineum. - Scrotal elevation per nursing #Chronic Mild Hyponatremia - Na level: 131 (L); Glucose: Negative, (Plan: - Urine sodium and osmolarity pending, - Continue to monitor with a.m. labs #Abdominal pain #Peripancreatic fat haziness on imaging #Constipation in setting of cirrhosis - No evidence of bowel obstruction on imaging - Up titrated home lactulose from daily to the three times a day # Generalized weakness -PT/OT consult - Nutritional consult #HLD- continue home atorvastatin #HTN - holding carvedilol in setting of sepsis #PE- continuation of Lovenox deferred to team pharmacy; general pharmacy recommended switching to heparin drip #Alcohol Use Disorder -Reports he is abstinent for 3-4months, then resumes occasional alcohol around 2-3 glasses of wine a few times a week to 2 shots of bourbon a few times a week, - Denying recent alcohol use, last drink prior to last hospitalization - PETH: 260 was 316 on 03/28/2025. - Monitor liver function with daily labs - Continue Folate - Continue PO Thiamine #Obesity - Body mass index is 34.71 kg/m??. - complicates all aspects of care [facility] * Progress Notes - Agatha Cruz PharmD - 06/30/2025 3:21 PM EDT Pharmacokinetic Consult - Therapeutic Drug Monitoring HPI and Hospital Course: Scout Lowe is a 70 y.o. male who started on vancomycin therapy for postsurgical incision site infection. Random concentration therapeutic drug monitoring performed due to unstable renal function. Creatinine, Plasma (mg/dL) Date/Time Value 06/29/2025 0652 1.39 (H) Estimated Creatinine Clearance: 60.2 mL/min (A) (by C-G formula based on SCr of 1.39 mg/dL (H)). Vancomycin, Random, Plasma (ug/mL) Date/Time Value 06/30/2025 1248 13.3 Dose 06/28 @ 23:08 - 2750 mg (25 mg/kg) Vanc random 06/29 @ 1805 - 15.4 Dose 06/29 @ 22:07 - 1000 mg (10 mg/kg) Vanc random 06/30 @ 12:48 = 13.3 (drawn ~14.5 hrs after dose) Assessment/Plan 1. Patient is Appropriate for redosing at this time. Recommend to schedule vancomycin 1500 mg IV q24h for predicted AUC close to ~400 2. Monitor renal function (SCr and BUN) and UOP at least 2-3x weekly or more frequently if renal function changes. 3. Recommend 2 level kinetics at steady-state Pharmacy will continue to follow, Agatha Cruz PharmD 06/30/2025 3:20 PM * Progress Notes - David Lei - 06/30/2025 1:52 PM EDT Physical Therapy Evaluation Patient Name: Scout Lowe Today's Date: 06/30/2025 PT Discharge Recommendations: Home with assistance Equipment Recommended: None History Scout Lowe is 70 y.o. male admitted 06/28/2025 for work-up of Sepsis, localized, in operative wound (CMS/HCC). Problem List Active Hospital Problems Diagnosis Date Noted Sepsis, localized, in operative wound (CMS/HCC) 06/29/2025 UTI (urinary tract infection) 06/29/2025 Hypotension 06/13/2025 Prostate CA (CMS/HCC) 06/12/2025 Cirrhosis of liver (CMS/HCC) 06/12/2025 Leukocytosis 06/12/2025 Hyperlipidemia 06/12/2025 Anemia 06/12/2025 Renal calculi 06/12/2025 Severe obesity (BMI 35.0-39.9) with comorbidity (CMS/HCC) 06/03/2025 Procedures Past Medical History Patient has a past medical history of Cancer (CMS/HCC) (january 26, 2025), Cirrhosis (CMS/HCC) (2021),History of methicillin resistant Staphylococcus aureus (2011), Hyperlipidemia, Hypertension, Kidneystone (various), Metabolic encephalopathy (06/17/2025), and Substance abuse (alcohol). Past Surgical History Patient has a past surgical history that includes Cholecystectomy (2009); Knee arthroscopy w/ meniscal repair; Umbilical hernia repair; and Other surgical history. Precautions Left Lower Extremity Weight Bearing Status: Weight Bearing as Tolerated Right Lower Extremity Weight Bearing Status: Weight Bearing as Tolerated Left Upper Extremity Weight Bearing Status : Weight bearing as tolerated Right Upper Extremity Weight Bearing Status : Weight bearing as tolerated Medical Precautions: Fall precautions Subjective Scout Lowe is a 70 y/o male who presents to [facility] with possible sepsis. Participants in Care Family/Caregiver Present: Yes Family/Caregiver: Spouse (arrived at conclusion of session) Presentation Oxygen Therapy: None (Room air) Lines and Tubes: Intravenous access Pre-Session: Supine, Head of bed elevated, Lines intact Post-Session: Sitting in chair, RN notified, Lines intact, Chair alarm, Call light in reach Post-Session Comments: Patient positioned for comfort and left with all needs within reach Home Living/Set-up Lives With: Spouse Home Type: House Home Adaptive Equipment: None Home Layout: One level Bathroom: Toilet: Standard Prior Level of Function Receives Help From: No assist required prior to admission Level of Mobility: Ambulatory- community Mobility Owsley: Independent gait without device History of Falls: No ADL Performance: Independent Patient/Family Goals Patient stated desire to return home Objective Pain Patient reported pain at previous surgical site but did not rate when asked, positioned for comfort. Delirium Screening RASS: Alert and calm Confusion Assessment Method-ICU (CAM-ICU/PCAM-ICU) Feature 3: Altered Level of Consciousness: Negative Cognition Overall Cognitive Status: Within Functional Limits Arousal/Alertness: Appropriate responses to stimuli Mood/Behavior: Alert Orientation Level: Oriented X4 Single Step Commands: Consistently Multi-Step Commands: Consistently Method of Communication: Verbal Right Upper Extremity Examination RUE Assessment: Within Functional Limits Manual Muscle Testing - RUE: Within functional limits Left Upper Extremity Examination LUE ROM Assessment LUE Assessment: Within Functional Limits Manual Muscle Testing - LUE Manual Muscle Testing - LUE: Within functional limits Right Lower Extremity Examination RLE ROM Assessment RLE Assessment: Within Functional Limits Manual Muscle Testing - RLE Manual Muscle Testing - RLE: Within functional limits Left Lower Extremity Examination LLE Assessment: Within Functional Limits Manual Muscle Testing: Within functional limits Bed Mobility Bed Mobility Exam: Scooting/Bridging Level of Owsley: Stand-by assist Physical/Nonphysical Assist: Supervision Bed Mobility Exam: Supine to Sit Level of Owsley: Stand-by assist Physical/Nonphysical Assist: Supervision Transfers Transfer Exam: Sit to stand Level of Owsley: Stand-by assist Assistive Device: Hand held assist Transfer Exam: Stand to Sit Level of Owsley: Stand-by assist Physical/Nonphysical Assist: Supervision Assistive Device: Hand held assist Ambulation Device: No device Assistance: Standby assist Distance : 5 ft. to recliner Ambulation Comments: Patient demonstrates decreased ashley and step length with no loss of balance Standardized Assessments Standardized Assessments Standardized Assessments: [facility] 6-Clicks Mobility Assessment [facility] 6-Clicks Mobility Assessment Difficulty patient has turning [...] 3-5 steps with a railing?: A little [facility] 6-Clicks Mobility Assessment Total : 18 Standardized Assessments Standardized Assessments Standardized Assessments: [facility] 6-Clicks Mobility Assessment [facility] 6-Clicks Mobility Assessment [...] 3-5 steps with a railing?: A little [facility] 6-Clicks Mobility Assessment Total : 18 No data recorded Assessment Patient required cues for positioning to increase efficiency of transfers. Patient demonstrates decreased functional mobility and would benefit from continued physical therapy to address needs. Impairments: Impaired balance, Impaired functional mobility/transfers, Impaired locomotion Activity Limitations: Inability to ambulate independently, Inability to transfer independently, Inability to complete ADLs independently Participation Restrictions: Self-care, Home management, Community leisure Diagnosis: Impaired functional mobility Rehab Potential: Good, to achieve stated therapy goals Eval Complexity History Profile: 1 - 2 personal factors and/or comorbidities Clinical Presentation: Evolving clinical presentation with changing characteristics Clinical Decision Making: Low complexity PT Recommendations Discharge Destination: Home with assistance Discharge Equipment: None Plan Planned PT Interventions Balance training, Bed mobility training, Gait training, Transfer training, Strengthening, Functional Mobility PT Frequency 2 - 5 times per week PT Duration 2 weeks Goals PT GOAL DETAILS Time Frame PT Goal 1: Patient will be independent with HEP, discharge recommendations 2 weeks PT Goal 2: Patient will transfer supine<>sit independently 2 weeks PT Goal 3: Patient will transfer sit-stand and bed<>chair independently 2 weeks PT Goal 4: Patient will ambulate 450 ft. independently 2 weeks Written by David Lei on 06/30/25 at 1:52 PM. * Progress Notes - Bianka Hansen MD - 06/30/2025 1:15 PM EDT [facility] Urology Inpatient Progress Note Primary Attending: Dyllan Paul MD Procedure(s): RALP 06/12/25 c/b bleeding requiring ex-lap, rbc transfusion, pressors SUBJECTIVE: NAEON. Pt states he feels better this morning compared to yesterday. States he has not had a BM in 3-5 days. No questions or concerns. PHYSICAL EXAM: Temp: [36.3 ??C (97.3 ??F)-36.9 ??C (98.4 ??F)] 36.6 ??C (97.8 ??F) Heart Rate: [89-96] 93 Resp: [16-20] 16 BP: (101-126)/(66-76) 101/66 SpO2: [90 %-96 %] 90 % I O Shift I O 24Hrs LDAs No intake/output data recorded. I/O last 3 completed shifts: In: 920 (8.5 mL/kg) [P.O.:720; IV Piggyback:200] Out: 600 (5.5 mL/kg) [Urine:600 (0.2 mL/kg/hr)] Weight: 108.5 kg GEN: NAD HEENT: NCAT, EOMI RESP: Equal bilateral chest rise, normal work of breathing on 2L NC CV: Regular rate, appears well perfused ABD: Non-distended, soft, non-tender. Incisions c/d/I. DANILO site covered with no shadowing. : scrotum edema, improving. Purewick saturated with yellow urine. EXT: No gross deformities MSK: Full ROM in BL UE NEURO: No focal deficits, alert and oriented PSYCH: Normal mood and affect LABS: Results from last 7 days Lab Units 06/28/25 2139 WBC 10*3/uL 23.92* HEMOGLOBIN g/dL 12.3* HEMATOCRIT % 34.7* PLATELETS 10*3/uL 128* Results from last 7 days Lab Units 06/29/25 0652 SODIUM mmol/L 131* POTASSIUM mmol/L 3.8 CHLORIDE mmol/L 99 CO2 mmol/L 22 BUN mg/dL 24* CREATININE mg/dL 1.39* EGFR mL/min/1.73m*2 54.5 GLUCOSE mg/dL 116* CALCIUM mg/dL 7.6* Results from last 7 days Lab Units 06/29/25 0200 COLOR UA [place] SPEC GRAV U 1.030 PH UA 5.5 PROTEIN UR mg/dL Trace* GLUCOSE UA mg/dL Negative KETONES UA mg/dL Trace* LEUKOCYTES UA Small* NITRITE UA Negative RBC, URINE /HPF >50* WBC, URINE /HPF 11 - 20* SQUAMOUS /HPF 0 - 2 BACTERIA UR HPF Negative Results from last 7 days Lab Units 06/29/25 0200 URINE CULTURE 10,000 - 100,000 CFU/mL Diutina rugosa (formerly Celestina rugosa)* IMAGING: All imaging reviewed personally by me 06/28/25 CT Ango A/P - posterior dependent atelectasis of lungs - significant ascites - no HDN b/l - nonobstructing 6 mm calculus proximal right ureter - Retained 10 mm bladder calculus HOSPITAL PROBLEM LIST: Principal Problem: Sepsis, localized, in operative wound (CMS/HCC) Active Problems: Severe obesity (BMI 35.0-39.9) with comorbidity (CMS/HCC) Prostate CA (CMS/HCC) Anemia Hyperlipidemia Leukocytosis Cirrhosis of liver (CMS/HCC) Renal calculi Hypotension UTI (urinary tract infection) ASSESSMENT: Scout Lowe is a 70 y.o. male with PMH hepatic encephalopathy/decompensated alcoholiccirrhosis, recent PE on AC, HTN, HLD, 6 mm non-obstructing right proximal ureteral stone, bladder stones, unfavorable intermediate risk prostate cancer s/p RALP w/PLND on 06/12/25 c/b transected umbilical vein and significant blood loss requiring ex lap, blood transfusions, and pressor support presenting to the ED due to fever, lethargy, and abdominal pain. He was admitted from 06/12-06/25 s/p RALP with ICU course complicated by acute hepatic encephalopathy and decompensated alcohol induced cirrhosis. He was eventually downgraded to the floor and catheter was removed prior to discharge after Fl cystogram demonstrated no evidence of anastomotic leak 06/20. Discharged 06/25. He is currently AF, HDS on 2 L/min O2. UA demonstrates yeast, neg bacteria neg nitrite, 11-20 WBC, >50 RBC. Urine culture growing 10-100k cfu/ml diutina rugosa. Wound culture growing numerous polymorphonuclear leukocytes, rare gram negative rods, gram positive cocci. CTA C/A/P demonstrates no hydronephrosis bilaterally, an approximately 7 mm non-obstructing right proximal-mid ureteral stone, bladder wall thickening, and a 1 cm bladder stone. He is on Cefepime, Diflucan, and Vancomycin. PLAN: - recommend adding rectal suppository for constipation - recommend Daily AM CBC + BMP - Continue broad spectrum IV abx, tailor to culture results when available - follow blood, urine cultures - monitor UOP - Lactulose, bowel regimen to ensure daily soft bowel movements - MMPC - serial scrotal exams, recommend scrotal elevation and keeping area dry - encourage IS, OOB when able - Urology will continue to follow - PVR scans to ensure bladder is adequately emptying - continue flomax to to encourage ureteral stone passage - will consider bedside cystoscopy to remove bladder stone Bianka Hansen MD Cosigned by Dyllan Paul MD at 07/02/2025 5:53 PM EDT Associated attestation - Dyllan Paul MD - 07/02/2025 5:53 PM EDT I saw and evaluated the patient. I discussed the case with the resident/fellow and agree with the findings and plan as documented. * Progress Notes - Caitlyn James - 06/30/2025 9:56 AM EDT Occupational Therapy Evaluation Patient Name: Scout Lowe Today's Date: 06/30/2025 OT Discharge Recommendations: Home with assistance Equipment Recommended: Patient owns appropriate equipment History Scout Lowe is 70 y.o. male admitted 06/28/2025 for work-up of Sepsis, localized, in operative wound (CMS/HCC). Problem List Active Hospital Problems Diagnosis Date Noted Sepsis, localized, in operative wound (CMS/HCC) 06/29/2025 UTI (urinary tract infection) 06/29/2025 Hypotension 06/13/2025 Prostate CA (CMS/HCC) 06/12/2025 Cirrhosis of liver (CMS/HCC) 06/12/2025 Leukocytosis 06/12/2025 Hyperlipidemia 06/12/2025 Anemia 06/12/2025 Renal calculi 06/12/2025 Severe obesity (BMI 35.0-39.9) with comorbidity (CMS/HCC) 06/03/2025 Procedures Past Medical History Patient has a past medical history of Cancer (CMS/HCC) (january 26, 2025), Cirrhosis (CMS/HCC) (2021),History of methicillin resistant Staphylococcus aureus (2011), Hyperlipidemia, Hypertension, Kidneystone (various), Metabolic encephalopathy (06/17/2025), and Substance abuse (alcohol). Past Surgical History Patient has a past surgical history that includes Cholecystectomy (2009); Knee arthroscopy w/ meniscal repair; Umbilical hernia repair; and Other surgical history. Precautions Left Lower Extremity Weight Bearing Status: Weight Bearing as Tolerated Right Lower Extremity Weight Bearing Status: Weight Bearing as Tolerated Left Upper Extremity Weight Bearing Status : Weight bearing as tolerated Right Upper Extremity Weight Bearing Status : Weight bearing as tolerated Medical Precautions: Fall precautions Subjective Agreeable to participation Participants in Care Family/Caregiver Present: Yes Family/Caregiver: Spouse (arrived at conclusion of session) Presentation Oxygen Therapy: None (Room air) Lines and Tubes: Intravenous access Pre-Session: Supine, Head of bed elevated, Lines intact Post-Session: Sitting in chair, RN notified, Lines intact, Chair alarm, Call light in reach Post-Session Comments: Patient positioned for comfort and left with all needs within reach Home Living/Set-up Lives With: Spouse Home Type: House Home Adaptive Equipment: None Home Layout: One level Bathroom: Toilet: Standard Prior Level of Function Receives Help From: No assist required prior to admission Level of Mobility: Ambulatory- community Mobility Owsley: Independent gait without device History of Falls: No ADL Performance: Independent Patient/Family Goals Statement agreeable to participation Objective Pain Reports abdominal cramping Delirium Screening RASS: Alert and calm Confusion Assessment Method-ICU (CAM-ICU/PCAM-ICU) Feature 3: Altered Level of Consciousness: Negative Cognition Overall Cognitive Status: Within Functional Limits Arousal/Alertness: Appropriate responses to stimuli Mood/Behavior: Alert Orientation Level: Oriented X4 Single Step Commands: Consistently Multi-Step Commands: Consistently Method of Communication: Verbal Right Upper Extremity Examination RUE ROM Assessment RUE Assessment: Within Functional Limits Manual Muscle Testing - RUE: Within functional limits Left Upper Extremity Examination LUE ROM Assessment LUE Assessment: Within Functional Limits Manual Muscle Testing - LUE: Within functional limits Right Lower Extremity Examination RLE ROM Assessment RLE Assessment: Within Functional Limits Manual Muscle Testing - RLE: Within functional limits Left Lower Extremity Examination LLE ROM Assessment LLE Assessment: Within Functional Limits Manual Muscle Testing: Within functional limits Bed Mobility Bed Mobility Exam: Scooting/Bridging Level of Owsley: Stand-by assist Physical/Nonphysical Assist: Supervision Bed Mobility Exam: Supine to Sit Level of Owsley: Stand-by assist Physical/Nonphysical Assist: Supervision Transfers Transfer Exam: Sit to stand Level of Owsley: Stand-by assist Assistive Device: Hand held assist Transfer Exam: Stand to Sit Level of Owsley: Stand-by assist Physical/Nonphysical Assist: Supervision Assistive Device: Hand held assist Functional Mobility Device: No device Assistance: Standby assist Distance : 5 ft. to recliner Self-Care Interventions Lower Extremity Dressing Sock Level of Assistance: Maximum assistance LE Dressing Where Assessed: Bed level Toileting Toileting Adaptive Equipment: Catheterization equipment Toileting Level of Assistance: Dependent Where Assessed: Bed level Toileting Interventions: use of [employer] system Standardized Assessments [facility] 6-Click Daily Activities Help from Other: Don/Doff Regular Lower Body Clothings: Little Help From Other: Bathing: Little Help From Other: Toileting: Little Help From Other: Don/Doff Upper Body Clothings: None Help From Other: Grooming: None Help From Other: Eating Meals: None [facility] 6 Click - Daily Activities Score: 21 Assessment Patient would benefit from cont'd skilled OT while in acute setting for cognitive, safety, strength, balance, endurance and activity tolerance training in prep for ADL/IADL tasks as pt appears to be most limited by generalized weakness and fatigue. Patient is agreeable to OT POC and discharge recommendations- pending functional progress while in acute setting. OT Findings: Impaired ADL performance, Impaired IADL performance, Impaired functional mobility, Decreased endurance/ventilation/gas exchange Evaluation/Treatment Tolerance: Patient limited by fatigue Rehab Potential: Good, to achieve stated therapy goals Eval Complexity Occupational Profile: Brief history including review of medical/therapy records relating to presenting problem Performance Deficits: Activities of daily living (ADLs), Instrumental activities of daily living (IADLs), Habits, Routines, Leisure Clinical Decision Making: Low Overall Eval complexity: Low OT Recommendations Discharge Destination: Home with assistance Discharge Equipment: Patient owns appropriate equipment Plan Planned OT Interventions ADL retraining, Balance training, Bed mobility Training, Joint mobilization, Strengthening, Functional mobility, Transfer training, Caregiver education, Stretching OT Frequency 1 - 3 times per week OT Duration 2 weeks Goals OT GOAL DETAILS Time Frame OT Goal 1: Pt will be Mod I for functional ambulation to and from bathroom 2 weeks OT Goal 2: Pt will be independent with toileting 2 weeks OT Goal 3: Pt will independent with all LB dressing 2 weeks Written by Caitlyn James on 06/30/25 at 2:52 PM. * Care Plan - Ju Herrera RN - 06/30/2025 8:40 AM EDT Problem: Adult Inpatient Plan of Care Goal: Plan of Care Review Outcome: Ongoing, Progressing Flowsheets (Taken 06/30/2025 0940) Progress: no change Plan of Care Reviewed With: patient spouse Problem: Adult Inpatient Plan of Care Goal: Patient-Specific Goal (Individualized) Outcome: Ongoing, Progressing Flowsheets (Taken 06/30/2025 1600) Patient/Family-Specific Goals (Include Timeframe): pt will have one larged formed BM by end of shift. Individualized Care Needs: IV abx oral abx sitting in chair lactulose paracentesis Monday monitoring for leakage from abdominal site Anxieties, Fears or Concerns: pt requesting ice chips. Problem: Adult Inpatient Plan of Care Goal: Absence of Hospital-Acquired Illness or Injury Intervention: Identify and Manage Fall Risk Flowsheets (Taken 06/30/2025 1800) Safety Promotion/Fall Prevention: clutter-free environment maintained lighting adjusted room organization consistent safety round/check completed Problem: Adult Inpatient Plan of Care Goal: Absence of Hospital-Acquired Illness or Injury Intervention: Prevent Skin Injury Flowsheets (Taken 06/30/2025 2140) Body Position: turned Problem: Adult Inpatient Plan of Care Goal: Absence of Hospital-Acquired Illness or Injury Intervention: Prevent and Manage VTE (Venous Thromboembolism) Risk Flowsheets (Taken 06/30/2025 2140) VTE Prevention/Management: medication Problem: Adult Inpatient Plan of Care Goal: Absence of Hospital-Acquired Illness or Injury Intervention: Prevent Infection Flowsheets (Taken 06/29/2025 1523 by Tenisha Amador, RN) Infection Prevention: environmental surveillance performed Problem: Adult Inpatient Plan of Care Goal: Optimal Comfort and Wellbeing Intervention: Monitor Pain and Promote Comfort Flowsheets (Taken 06/30/2025 0239 by Denae Lowe RN) Pain Management Interventions: medication (see MAR) Problem: Adult Inpatient Plan of Care Goal: Optimal Comfort and Wellbeing Intervention: Provide Person-Centered Care Flowsheets (Taken 06/29/2025 1523 by Tenisha Amador RN) Trust Relationship/Rapport: care explained Problem: Skin Injury Risk Increased Goal: Skin Health and Integrity Intervention: Optimize Skin Protection Flowsheets Taken 06/29/20251999 by Denae Lowe RN Activity Management: activity adjusted per tolerance Taken 06/29/20258 by Kassandra Handy, TIERA Pressure Reduction Techniques: frequent weight shift encouraged heels elevated off bed Problem: Infection Goal: Absence of Infection Signs and Symptoms Intervention: Prevent or Manage Infection Flowsheets Taken 06/30/2025 1800 by Ju Herrera RN Isolation Precautions: precautions maintained protective Taken 06/29/20251737 by Kassandra Handy RN Infection Management: aseptic technique maintained Fever Reduction/Comfort Measures: lightweight bedding lightweight clothing * Nursing Note - Denae Lowe RN - 06/30/2025 5:21 AM EDT Pt has dressing to LLQ to abdomen, gauze and tegaderm intact , clean and dry. Patient has healed incisions to mid abdomen, approximated well, no s/s of infection. * Care Plan - Denae Lowe RN - 06/30/2025 4:03 AM EDT Problem: Adult Inpatient Plan of Care Goal: Plan of Care Review Outcome: Ongoing, Progressing Flowsheets (Taken 06/30/2025 0400) Progress: no change Outcome Evaluation: patient will rate pain at 0/10 this shift Plan of Care Reviewed With: patient Goal: Patient-Specific Goal (Individualized) Outcome: Ongoing, Progressing Flowsheets (Taken 06/29/20251999) Patient/Family-Specific Goals (Include Timeframe): Patient will rate pain at 2/10 this shift Individualized Care Needs: pain control Anxieties, Fears or Concerns: pain Goal: Absence of Hospital-Acquired Illness or Injury Outcome: Ongoing, Progressing Intervention: Identify and Manage Fall Risk Flowsheets (Taken 06/29/20251999) Safety Promotion/Fall Prevention: activity supervised Intervention: Prevent Skin Injury Flowsheets Taken 06/30/2025 0000 by Denae Lowe RN Body Position: weight shifting Taken 06/29/20251737 by Kassandra Handy RN Skin Protection: silicone foam dressing in place Intervention: Prevent and Manage VTE (Venous Thromboembolism) Risk Flowsheets (Taken 06/30/2025 0000) VTE Prevention/Management: SCDs (sequential compression devices) off patient refused intervention Intervention: Prevent Infection Flowsheets (Taken 06/29/2025 1523 by Tenisha Amador RN) Infection Prevention: environmental surveillance performed Problem: Infection Goal: Absence of Infection Signs and Symptoms Outcome: Ongoing, Progressing Intervention: Prevent or Manage Infection Flowsheets Taken 06/29/20251999 by Denae Lowe RN Isolation Precautions: precautions maintained protective Taken 06/29/20251737 by Kassandra Handy RN Infection Management: aseptic technique maintained Fever Reduction/Comfort Measures: lightweight bedding lightweight clothing Problem: Pain Acute Goal: Optimal Pain Control and Function Outcome: Ongoing, Progressing Intervention: Develop Pain Management Plan Flowsheets (Taken 06/30/2025 0239) Pain Management Interventions: medication (see MAR) Intervention: Prevent or Manage Pain Flowsheets Taken 06/30/2025 0400 by Denae Lowe RN Sensory Stimulation Regulation: care clustered lighting decreased quiet environment promoted Bowel Elimination Promotion: ambulation promoted commode/bedpan at bedside Sleep/Rest Enhancement: awakenings minimized Taken 06/29/20251737 by Kassandra Handy RN Medication Review/Management: medications reviewed * Progress Notes - Candy Gomez PharmD - 06/29/2025 7:05 PM EDT Pharmacokinetic Consult - Therapeutic Drug Monitoring HPI and Hospital Course: Scout Lowe is a 70 y.o. male who started on vancomycin therapy for postsurgical incision site infection. Random concentration therapeutic drug monitoring performed due to unstable renal function. Creatinine, Plasma (mg/dL) Date/Time Value 06/29/2025 0652 1.39 (H) Estimated Creatinine Clearance: 60.2 mL/min (A) (by C-G formula based on SCr of 1.39 mg/dL (H)). Vancomycin, Random, Plasma (ug/mL) Date/Time Value 06/29/2025 1805 15.4 Assessment/Plan 1. Patient is Appropriate for redosing at this time. Recommend to dose with vancomycin 1000 mg IV followed by intermittent dosing. 2. Monitor renal function (SCr and BUN) and UOP at least 2-3x weekly or more frequently if renal function changes. 3. Recommend random vancomycin level on Saturday 06/30 at 1200 Pharmacy will continue to follow, Candy Gomez PharmD 06/29/2025 7:04 PM * Care Plan - Kassandra Handy RN - 06/29/2025 5:41 PM EDT Problem: Adult Inpatient Plan of Care Goal: Plan of Care Review Outcome: Ongoing, Progressing Flowsheets (Taken 06/29/20251737) Progress: declining Outcome Evaluation: patient and verbalize understanding of plan of care goals Plan of Care Reviewed With: patient spouse Goal: Patient-Specific Goal (Individualized) Outcome: Ongoing, Progressing Flowsheets (Taken 06/29/2025 1607) Patient/Family-Specific Goals (Include Timeframe): patient's pain will be managed this shift and report pain within pain goal within 60 min or pain meds. patient will remain free of s/s of infection AEB vitals WNL, no purulent drainage from lap sites with WBC trending down with abt regimen Individualized Care Needs: pain mgt and abt regimen Anxieties, Fears or Concerns: pain mgt Goal: Absence of Hospital-Acquired Illness or Injury Outcome: Ongoing, Progressing Intervention: Identify and Manage Fall Risk Flowsheets (Taken 06/29/2025 1523 by Tenisha Amador, RN) Safety Promotion/Fall Prevention: activity supervised Intervention: Prevent Skin Injury Flowsheets Taken 06/29/2025 173 Skin Protection: silicone foam dressing in place Taken 06/29/2025 1600 Body Position: weight shifting Intervention: Prevent and Manage VTE (Venous Thromboembolism) Risk Flowsheets (Taken 06/29/2025 1600) VTE Prevention/Management: bilateral SCDs (sequential compression devices) on Intervention: Prevent Infection Flowsheets (Taken 06/29/20251522 by Tenisha Amador RN) Infection Prevention: environmental surveillance performed Goal: Optimal Comfort and Wellbeing Outcome: Ongoing, Progressing Intervention: Monitor Pain and Promote Comfort Flowsheets (Taken 06/29/20251522 by Tenisha Amador, TIERA) Pain Management Interventions: breathing exercises Intervention: Provide Person-Centered Care Flowsheets (Taken 06/29/20251522 by Tenisha Amador RN) Trust Relationship/Rapport: care explained Problem: Skin Injury Risk Increased Goal: Skin Health and Integrity Outcome: Ongoing, Progressing Intervention: Optimize Skin Protection Flowsheets Taken 06/29/20251737 Pressure Reduction Techniques: frequent weight shift encouraged heels elevated off bed Pressure Reduction Devices: specialty bed utilized Skin Protection: silicone foam dressing in place Taken 06/29/20251599 Activity Management: activity adjusted per tolerance Head of Bed (HOB) Positioning: HOB at 30 degrees Intervention: Promote and Optimize Oral Intake Flowsheets Taken 06/29/20251737 by Kassandra Handy RN Nutrition Interventions: supplemental drinks provided Taken 06/29/20251522 by Tenisha Amador RN Oral Nutrition Promotion: social interaction promoted Problem: Infection Goal: Absence of Infection Signs and Symptoms Outcome: Ongoing, Progressing Intervention: Prevent or Manage Infection Flowsheets Taken 06/29/20251737 Infection Management: aseptic technique maintained Fever Reduction/Comfort Measures: lightweight bedding lightweight clothing Taken 06/29/2025 1600 Isolation Precautions: precautions maintained protective Problem: Fall Injury Risk Goal: Absence of Fall and Fall-Related Injury Outcome: Ongoing, Progressing Intervention: Identify and Manage Contributors Flowsheets (Taken 06/29/2025 173) Medication Review/Management: medications reviewed Self-Care Promotion: independence encouraged BADL personal objects within reach BADL personal routines maintained Intervention: Promote Injury-Free Environment Flowsheets (Taken 06/29/20251522 by Tenisha Amador RN) Safety Promotion/Fall Prevention: activity supervised * Consults - Lillian Martin 06/29/2025 10:25 AM EDTAssociated Order(s): IP CONSULT TO NUTRITION SERVICES Adult Nutrition Evaluation Note Scout Lowe 70 y.o. male CSN: [id number] Room/Bed Nutrition evaluation type: assessment Reason for evaluation: provider consult Hospital course: 70 y/o M with PMH hepatic encephalopathy/decompensated alcoholic cirrhosis, PE, HTN, HLD, 6 mm non-obstructing right proximal ureteral stone, bladder stones, unfavorable intermediaterisk prostate cancer s/p RALP w/PLND on 06/12/25 c/b transected umbilical vein and significant bloodloss requiring ex lap, blood transfusions, and pressor support presenting to the ED due to fever, lethargy, and abdominal pain. Past medical/ surgical history: Past Medical History[1] Surgical History[2] Social history: Additional comments: Vitals and Basic Assessment: BP: 113/67 Temp: 36.4 ??C (97.5 ??F) Oxygen Therapy: Supplemental oxygen O2 Delivery Method: Nasal cannula Sherri Coma Scale Score: 15 GI Symptoms: Cramping Allergies: Allergies[3] Medications: Current Scheduled Medications[4] Meds were reviewed: Yes Labs: Lab Results Component Value Date GLUCOSE 116 (H) 06/29/2025 CALCIUM 7.6 (L) 06/29/2025 NA 131 (L) 06/29/2025 K 3.8 06/29/2025 CO2 22 06/29/2025 CL 99 06/29/2025 BUN 24 (H) 06/29/2025 CREATININE 1.39 (H) 06/29/2025 PHOS 3.5 06/25/2025 MG 2.2 06/25/2025 HGBA1C 5.4 06/16/2025 Anthropometrics: Height: 175.3 cm (5' 9 ) Weight: 107 kg (235 lb 0.2 oz) BMI (Calculated): 34.69 Weight Evaluation: Obese-Class 1 (BMI 30-34.9) [place] Body Weight (kg): 72.7 Percent [place] Body Weight: 147 Wt Readings from Last 10 Encounters: 06/28/25 107 kg (235 lb 0.2 oz) 06/23/25 116 kg (255 lb 4.7 oz) 06/06/25 109 kg (240 lb) 04/29/25 116 kg (256 lb 2.8 oz) 03/28/25 112 kg (246 lb 14.6 oz) 05/04/23 102 kg (225 lb) 04/11/23 107 kg (235 lb 10.8 oz) 03/03/23 102 kg (225 lb) Estimated Needs: Metabolic Cart Study Results: Current Nutrition Intake: Diet Supplements: None Diet Order: Adult Diet Diet Texture: Regular Adult Carbohydrate Restriction: Consistent CHO 2 (3469-7458 Duong, 80 g/meal) Fat Restriction: Low fat Modified Calorie/ Protein: High calorie, high protein Diet Experience and Nutrition History: Diet Education Provided: Will monitor Pertinent home medications: Mandaen needs: Nutrition Focused Physical Exam: Unable to Complete Exam: Weekend coverage Physical exam performed on (date): Assessment of Malnutrition: Malnutrition Identified: Additional Information Needed Nutrition Problem: Predicted suboptimal energy intake related to current clinical condition as evidenced by decreased appetite. Status of Nutrition Diagnosis: New Nutrition Interventions and Recommendations: Removing low fat, CC2 Please record intakes in flow sheet Adding Novasource Renal BID MVI daily Nutrition Monitoring and Goals: Tolerate greater than 75% of meals, supplements NFPE on RD follow up Acuity Level: 3 Lillian Martin, RD, LD Weekend Dietitian [1] [...] HERNIA REPAIR [3] No Known Allergies [4] atorvastatin, 10 mg, Oral, Daily cefepime, 2 g, Intravenous, q12h lactulose, 10 g, Oral, TID metroNIDAZOLE, 500 mg, Oral, q8h Insert peripheral IV, , , Once AND Saline lock IV, , , Once AND sodium chloride, 10 mL, Intravenous, q12h AND sodium chloride, 10 mL, Intravenous, PRN tamsulosin, 0.4 mg, Oral, Daily with dinner vancomycin (Vancocin) intermittent dosing, 1 each, Intravenous, See admin instructions * Progress Notes - Robert Barron PharmD - 06/29/2025 6:34 AM EDT Pharmacokinetic Consult - Therapeutic Drug Monitoring HPI and Hospital Course: Scout Lowe is a 70 y.o. male presenting with sepsis who was started on IV vancomycin for . Pharmacy was consulted for management of vancomycin. Dose History: Recent Vancomycin Admin vancomycin (Vancocin) 2,750 mg in sodium chloride 0.9 % 500 mL IVPB (mg) 2,750 mg New Bag 06/28/25 2308 Wt Readings from Last 1 Encounters: 06/28/25 107 kg (235 lb 0.2 oz) BMI: 34.71 kg/m?? Creatinine, Plasma (mg/dL) Date/Time Value 06/28/2025 2139 1.49 (H) 06/25/2025 0550 1.14 06/24/2025 0214 1.20 Estimated Creatinine Clearance: 55.6 mL/min (A) (by C-G formula based on SCr of 1.49 mg/dL (H)). Assessment Estimated kinetic evaluation utilizing population kinetics: Vancomycin Dosing Method Vancomycin Dose Calculation Method Area under the curve (AUC) dosing General Parameters for Vancomycin Dose Calculation (AUC) Dosing Weight 107 kg (235 lb 14.3 oz) Vancomycin clearance calculation method Crass equation (For BMI greater than 30) Administer over 60 minutes AUC 24 hr goal (mg-hr/L) 500 mg??hr/L Estimated creatinine clearance (mL/min 55.6 mL/min Matzke Equation Parameters for Vancomycin Dose Calculation (AUC) Estimated vancomycin Vd (0.7 L/kg typically) 0.7 L/kg (Typical) Crass Equation Parameters for Vancomycin Dose Calculation (AUC) Serum creatinine (mg/dL) 1.49 mg/dL Recommended Initial Vancomycin Dosing Estimated Ke (hr ^-1) 0.0505 hr^-1 Estimated half-life (hr) 13.73 hr Estimated vancomycin Cl (L/hr) 3.623 Recommended TDD (mg) 1811.5 Plan 1. Loading dose of 2,750 mg given in ED 2. Recommend dosing IV vancomycin intermittently. 3. Monitor renal function (Scr and BUN) and UOP at least 2-3x/week or more frequently if renal function changes. 4. Obtain vancomycin random level with AM labs on 06/30. Pharmacy will continue to follow. Submitted by: Robert Barron PharmD 06/29/2025 6:33 AM * H&P - Homero Gutierrez APRN, DNP - 06/29/2025 4:14 AM EDTAssociated Order(s): Consult to Hospital Medicine Images from the original note were not included. Consult to Hospital Medicine Consult performed by: Homero Gutierrez APRN, DNP Consult ordered by: Kj Santos MD Reason for consult: Sepsis Chief Complaint: Fever History of Present Illness: Scout Lowe is a 70 y.o. year-old male who has a past medical history hepatic encephalopathy/decompensated alcoholic cirrhosis, PE, hypertension, 6 mm nonobstructive right proximal ureteral stone, on Unfavorable intermediate risk prostate cancer s/p robotic assisted radical prostatectomy (RALP) with bilateral pelvic lymph stone resection on 06/12/2025, complicated by intraoperative transition ofa patent umbilical vein requiring a ex lap, blood transfusions, pressor support, who presented who presents to [facility] on on 06/28/2025 with chief complaint of fever, lethargy, abdominal pain. Of note, patient was admitted from 06/12/2025 to 06/25/2025 status post RALP, his hospital course was complicated acute hepatic encephalopathy and decompensated alcohol cirrhosis. [place] cystogram demonstrated no evidence of anastomotic leak on 06/20 and and his catheter was removed prior to discharge. He underwent a CT A/P on 06/22 due to increasing leukocytosis and multiple non- obstructing stones were identified as well as a Right Lower lobe PE. He was treated with LMWH and transitioned to Lovenox which he is planned to take for 3 months. Patient was discharged on 06/25 with plan for clinic follow-up in [address]rogram with urology. He reports that he was doing well until 06/28/2025 when he developed lethargy, fatigue, fever with a temperature of 100.8, he also reports worsening left upper quad. abdominal pain rated as 5/10, and no bowel movement in the past 2 days despite lactulose adherence at home. They also reports anorexia since hospital discharge but endorse fluid intake Patient's reports that his left lateral ports incision site continued to drain significant amount of yellowish fluid, dressing has been changed prior to my assessment. mild erythema noted on theincision site the picture uploaded to Media. Patient bedside nurse confirmed significant purulent drainage associated with erythema on the on the incision site. Patient denies chest pain, cough, nausea and vomitting shortness of breath, dysuria, increasing frequency and hematuria In the ED, patient is afebrile, GCS of 15, initially hypotensive with systolic blood pressure in 90s ftachycardic to 110s, hypoxic to low 90s, fluid responsive after IV bolus, Initial labs were pertinent for WBC: 23.92 (H), CRP: 63.6 (H), sCr: 1.49 (H), sodium of 131, venous Lactate 2.5, UA with Blood: Large (A) Lueks: Small (A), Nitrites: Negative, WBC 11-20 , and yeast. CTA chest showed no pneumonia, CTA abdomen/pelvis demonstrated cirrhosis with mild ascites, 10 mm retained bladder calculus,bladder wall thickening/haziness, stable 6 mm non of protein proximal ureteral calculus, edema scrotal base of penis. He was started on Vanco and Zosyn. Urology was consulted in the ED recommended admission to Hospital Medicine for medical management of comorbidities Hospital Medicine was consulted and decision was made to admit for further workup and management Patient , at bedside provided HPI, along with chart review. Review of Systems: Review of Systems Constitutional: Positive for appetite change, chills, fatigue and fever. Skin: Abdominal significant purulent drainage, from left abdominal incision site Neurological: Positive for weakness. Past Medical History: Past Medical History[1] Surgical History: Surgical History[2] Family History: Family History[3] Social History: He reports that he has never smoked. He has never been exposed to tobacco smoke. He has never used smokeless tobacco. He reports current alcohol use. He reports that he does not use drugs. Travel History: Relevant Travel History: Travel Screening Question Response Have you been in contact with someone who was sick? No / Unsure Do you have any of the following new or worsening symptoms? None of these Have you traveled internationally or domestically in the last month? No Travel History Travel since 05/29/25 Location Start Date End Date [facility]) 06/01/25 06/02/25 Allergies: Patient has no known allergies. Vital Signs: Visit Vitals BP 116/63 (BP Location: Right arm, Patient Position: Lying) Pulse 85 Temp 36.6 ??C (97.9 ??F) (Oral) Resp 15 Ht 1.753 m (5' 9 ) Wt 107 kg (235 lb 0.2 oz) SpO2 93% BMI 34.71 kg/m?? Smoking Status Never BSA 2.28 m?? Physical Exam: General: well developed, well-nourished male who presents in no apparent distress Physical Exam Vitals and nursing note reviewed. Constitutional: Appearance: Normal appearance. He is well-groomed. He is ill-appearing. HENT: Head: Normocephalic and atraumatic. Eyes: General: Lids are normal. Vision grossly intact. Gaze aligned appropriately. Pupils: Pupils are equal, round, and reactive to light. Cardiovascular: Rate and Rhythm: Normal rate and regular rhythm. Pulses: Radial pulses are 2+ on the right side and 2+ on the left side. Dorsalis pedis pulses are 2+ on the right side and 2+ on the left side. Posterior tibial pulses are 2+ on the right side and 2+ on the left side. Heart sounds: Normal heart sounds, S1 normal and S2 normal. Pulmonary: Effort: Pulmonary effort is normal. Breath sounds: Normal breath sounds. Abdominal: General: Bowel sounds are normal. Palpations: Abdomen is soft. Tenderness: There is abdominal tenderness. Musculoskeletal: General: Normal range of motion. Right upper arm: Normal. No swelling or edema. Left upper arm: Normal. No swelling or edema. Cervical back: Normal range of motion and neck supple. No edema or erythema. Right lower leg: No edema. Left lower leg: No edema. Right foot: Normal. Left foot: Normal. Skin: General: Skin is warm. Capillary Refill: Capillary refill takes less than 2 seconds. Coloration: Skin is not jaundiced or pale. Findings: Erythema present. Comments: Abdominal surgical scar noted, as well as left side incision site associated with arrhythmia and significant purulent drainage, dressing changed Neurological: General: No focal deficit present. Mental Status: He is alert and oriented to person, place, and time. Mental status is at baseline. GCS: GCS eye subscore is 4. GCS verbal subscore is 5. GCS motor subscore is 6. Psychiatric: Attention and Perception: Attention and perception normal. Mood and Affect: Mood and affect normal. Speech: Speech normal. Behavior: Behavior normal. Behavior is cooperative. Thought Content: Thought content normal. Labs (in last 24 hours): CBC: Lab Results Component Value Date WBC 23.92 (H) 06/28/2025 RBC 3.78 (L) 06/28/2025 HGB 12.3 (L) 06/28/2025 HCT 34.7 (L) 06/28/2025 PLT 128 (L) 06/28/2025 MCV 92 06/28/2025 MCH 32.5 (H) 06/28/2025 MCHC 35.4 06/28/2025 RDW 16.3 (H) 06/28/2025 NRBC 0.0 06/28/2025 Differential: Lab Results Component Value Date WBC 23.92 (H) 06/28/2025 NEUTOPHILPCT 59 06/28/2025 LYMPHOPCT 37 06/28/2025 MONOPCT 3 06/28/2025 EOSPCT 0 06/28/2025 Coagulation: Lab Results Component Value Date INR 1.8 (H) 06/28/2025 Renal: Lab Results Component Value Date NA 131 (L) 06/28/2025 K 3.7 06/28/2025 CL 98 06/28/2025 CO2 20 (L) 06/28/2025 BUN 23 06/28/2025 CREATININE 1.49 (H) 06/28/2025 GLUCOSE 122 (H) 06/28/2025 CALCIUM 8.1 (L) 06/28/2025 Liver: Lab Results Component Value Date AST 67 (H) 06/28/2025 ALT 49 06/28/2025 BILITOT 2.8 (H) 06/28/2025 Glucose: Lab Results Component Value Date PGLU 119 (H) 06/28/2025 Lab Results Component Value Date HGBA1C 5.4 06/16/2025 Microbiology: Results Procedure Component Value Units Date/Time Urine Culture [id number] Collected: 06/29/25 0200 Order Status: Sent Specimen: Urine, Clean Catch Updated: 06/29/25 0401 Blood Culture (Aerobic/Anaerobet Set) [id number] Collected: 06/28/252138 Order Status: Completed Specimen: Blood from Arm, Right Updated: 06/29/25 000 Culture Culture in lab Blood Culture (Aerobic/Anaerobet Set) [id number] Collected: 06/28/252138 Order Status: Completed Specimen: Blood from Hand, Left Updated: 06/29/258 Culture Culture in lab Imaging (in last 24 hours): CT Angio Chest Result Date: 06/28/2025 1. No acute findings regarding the intrathoracic or intra-abdominal aorta. Visceral and pelvic arteries are patent. 2. No consolidation appreciated within the lungs. 3. Similar cirrhotic morphology of liver, and splenomegaly, and small volume ascites, mildly increased in the interval. Other stigmata of portal hypertension as described above, to include prominent collateral and coronary veins in the gastrohepatic ligament, and paraesophageal varices. 4. Interval removal of Monroe catheter, with retained 10 mm bladder calculus. There appears be some perivesical fat haziness, and wall thickening urinary bladder, which may be secondary to underdistention, however recommend correlation with urinalysis, or symptoms of UTI. Small amount of gas within the nondependent lumen may be residua of recent Monroe catheterization. 5. No free intra-abdominal gas, tiny foci of gas within the space of Retzius. 6. No acute intraluminal contrast extravasation appreciated within the stomach, small bowel, or colon during the examination. 7. Submucosal edema of the cecum and of the ascending colon, most likely portal colopathy, however correlate for any symptoms of a colitis. 8. Stable position of 6 mm nonobstructing proximal ureteral calculus at the level of L3/4. 9. Peripancreatic fat haziness, which ismost likely secondary to portal hypertension, however correlate for any elevation in serum lipase. 10. Scrotal edema, and subcutaneous edema at the base of the penis, no soft tissue emphysema in the scrotum, or perineum. CRITICAL RESULT: No. COMMUNICATION: Per this written report. Drafted by MD Nicholas on 06/28/2025 11:21 PM Final report signed by Jayme Amaya MD on 06/28/2025 11:[address] Angio Abdomen Pelvis Result Date: 06/28/2025 1. No acute findings regarding the intrathoracic or intra-abdominal aorta. Visceral and pelvic arteries are patent. 2. No consolidation appreciated within the lungs. 3. Similar cirrhotic morphology of liver, and splenomegaly, and small volume ascites, mildly increased in the interval. Other stigmata of portal hypertension as described above, to include prominent collateral and coronary veins in the gastrohepatic ligament, and paraesophageal varices. 4. Interval removal of Monroe catheter, with retained 10 mm bladder calculus. There appears be some perivesical fat haziness, and wall thickening urinary bladder, which may be secondary to underdistention, however recommend correlation with urinalysis, or symptoms of UTI. Small amount of gas within the nondependent lumen may be residua of recent Monroe catheterization. 5. No free intra-abdominal gas, tiny foci of gas within the space of Retzius. 6. No acute intraluminal contrast extravasation appreciated within the stomach, small bowel, or colon during the examination. 7. Submucosal edema of the cecum and of the ascending colon, most likely portal colopathy, however correlate for any symptoms of a colitis. 8. Stable position of 6 mm nonobstructing proximal ureteral calculus at the level of L3/4. 9. Peripancreatic fat haziness, which ismost likely secondary to portal hypertension, however correlate for any elevation in serum lipase. 10. Scrotal edema, and subcutaneous edema at the base of the penis, no soft tissue emphysema in the scrotum, or perineum. CRITICAL RESULT: No. COMMUNICATION: Per this written report. Drafted by MD Nicholas on 06/28/2025 11:21 PM Final report signed by aJyme Amaya MD on 06/28/2025 11:53 PM Assessment and plan: Principal problem: Sepsis, localized, in operative wound (CMS/HCC) - Principal Problem: Sepsis, localized, in operative wound (CMS/HCC) Active Problems: Severe obesity (BMI 35.0-39.9) with comorbidity (CMS/HCC) Prostate CA (CMS/HCC) Anemia Hyperlipidemia Leukocytosis Cirrhosis of liver (CMS/HCC) Renal calculi Hypotension UTI (urinary tract infection) Scout Lowe is a 70 y.o. year-old male who has a past medical history hepatic encephalopathy/decompensated alcoholic cirrhosis, PE, hypertension, 6 mm nonobstructive right proximal ureteral stone, on Unfavorable intermediate risk prostate cancer s/p robotic assisted radical prostatectomy (RALP) with bilateral pelvic lymph stone resection on 06/12/2025, complicated by intraoperative transition ofa patent umbilical vein requiring a ex lap, blood transfusions, pressor support, who presented who presents to [facility] on on 06/28/2025 with chief complaint of fever, lethargy, abdominal pain. Problems #Sepsis in setting of UTI, # Concern for postsurgical incision site - fever of max tempt of 100.8 at home, lethargy, worsening fatigue, generalized abdominal pain - Worsening purulent drainage from L port incision site, associated with mild erythema - SIRS: indicated by temperature, hypotension, tachycardia, respiration rate, possible source - WBC: 23.92 (H), Platelets: 128 (L),CRP: 63.6 (H) Procalcitonin: ?? - PT:21.0 sec (06/28 2139), INR: 1.8 (H), aptt: 70 (H) - VBG: pH: 7.50 (H) Co2: 28 (L) o2: 66 (H) HCO3: 21.8 (L) - Na: 131 (L) K: 3.7 - UA: Protein: Trace (A), Ketones: Trace (A), Glucose: Negative, Blood: Large (A), Leuks: Small (A), Nitrites: Negative, WBC: 11 - 20 (A) - Glucose: Negative, Ketones: Trace (A), Protein: Trace (A), Blood: Large (A) Lueks: Small (A), Nitrites: Negative, WBC: ?? - Adrenal insufficiency (ex: hyponatremia, hyperkalemia) CT:Angio A/P 06/29 : There appears be some perivesical fat haziness, and wall thickening urinary bladder, which may be secondary to underdistention, however recommend correlation with urinalysis, or symptoms of UTI. Small amount of gas within the nondependent lumen may be residua of recent Monroe catheterization. - ID Started on vanco and Zosyn Plan - Appreciate neurology recommendations, - Blood, Urine culture pending, - swab from port incision site - Consider antifungal coverage if cultures positive for yeast - Beta glucan pending - May consider ID consult - Strict I&O, - Serious scrotal exam , scrotal elevation - follow blood, urine cultures - monitor UOP - Flagyl plus cefepime plus vanco given concern for elevated Cr. - May consider ID consult # Transaminitis # Cirrhosis of Liver Decompensated by Hepatic Encephalopathy/ - AST: 67 (H) , ALT: 49, Alk Phos: 157 (H) , T.bili: 2.8 (H) - INR: 1.8 (H), APTT: 70 (H), PT: ??,Platelet: ?? - HCC: every 6 months, AFP: - EV: -EGD 08/13: gr1 ev; moderate PHG no focal liver lesion; Takes Coreg daily - HE: Lactulose. No asterixis on exam. - Ascites: On furosemide CT:Angio A/P 06/29/2025 cirrhotic morphology of liver, and splenomegaly, and small volume ascites, mildly increased in the interval. Other stigmata of portal hypertension Peripancreatic fat haziness, which is most likely secondary to portal hypertension, - Currently has/doesn't complain of abdominal pain. Abdomen was soft/rigid on exam. - MELD-Na: MELD 3.0: 25 at 06/28/2025 9:39 PM MELD-Na: 25 at 06/28/2025 9:39 PM Calculated from: Serum Creatinine: 1.49 mg/dL at 06/28/2025 9:39 PM Serum Sodium: 131 mmol/L at 06/28/2025 9:39 PM Total Bilirubin: 2.8 mg/dL at 06/28/2025 9:39 PM Serum Albumin: 2.7 g/dL at 06/28/2025 9:39 PM INR(ratio): 1.8 at 06/28/2025 9:39 PM Age at listing (hypothetical): 70 years Sex: Male at 06/28/2025 9:39 PM Plan - Ammonia level pending -Holding furosemide and Coreg for now in setting of sepsis - Ordered Lactulose 20 g PO TID or Rectal 200 once.Titrate to 3-5 bm/day, hold if diarrhea; - Trend BMP, mag, & phos - Start/Continue Thiamine daily - Start/Continue Vitamin B complex daily - I/O's, daily weights, 2g Na diet, daily protein intake of 1.2 to 1.5 g/kg and caloric intake of at least 35 Kcal/kg ideal body weight. (if not malnourished--then low protein. If malnutrition no need to hold protein) diet. - Monitor LFT's daily - Avoid NSAIDS/ASA, APAP <2 g/day if needed - Nutrition consult #Prostate CA - 06/12: robot-assisted radical prostatectomy, complicated by severed umbilical vein, 1.3L blood loss - Urology following - Continue home Flomax Normocytic Normochromic Anemia/Anemia of Chronic Disease - On admission : WRBC: 3.78 (L), Hgb 12.3 (L) (within baseline), HCT: 34.7 (L), MCV: 92, MCHC:35.4,RDW: 16.3, NRBC:0.0, Plan: - Monitor and transfuse if hgb<7 - #Elevated Creatinine concerning for Lalita - Differentials, include but are not limited to, (Pre-renal)diuretics, hypotension, hypovolemia, CHF, hypoalbuminemia, DARRON vs intrarenal, hepatorenal) -sCr: 1.49 (H), (Baseline 0.82 - 1.14), BUN: 23, eGFR: 50.2, - Wbc: temp: CRP: lactic acid: - K: Mag: Phos: - Na: bicarb: - UA: - Urinary retention? F/C? Oliguric? Bladder scan? - US Renal? CT abd/pelvis: Plan: - Urine cx pending; serum cystatin C - Urine Studies to calculate FEUrea (urine urea/creatinine- serum bun/creatinine) - Avoid NSAID/Nephrotoxin (ACEI/ARBs/aminoglycosides sharon ) (metformin, gabapentin, cefepime, morphine) - Renal dose medications - Strict I&O - Repeat BMP in the AM - Patient is on therapeutic Lovenox at home given elevated creatinine on admission, talked to pharmacy who recommended switching to heparin drip, will defer to day team #Renal calculi, asymptomatic - CTA/P- Interval removal of Monroe catheter, with retained 10 mm bladder calculus. - Monitor kidney function with daily labs #Scrotal edema, and subcutaneous edema at the base of the penis, no soft tissue emphysema in the scrotum, or perineum. - Scrotal elevation per nursing #Chronic Mild Hyponatremia - Na level: 131 (L); Glucose: Negative, (Plan: - Urine sodium and osmolarity pending, - Continue to monitor with a.m. labs #Abdominal pain #Peripancreatic fat haziness on imaging - Lipase added to admission labs , pending #Constipation in setting of cirrhosis - Ammonia level pending - No evidence of bowel obstruction on imaging - Up titrated home lactulose from daily to the three times a day # Generalized weakness -PT/OT consult - Nutritional consult Chronic #HLD- continue home atorvastatin #HTN - holding carvedilol in setting of sepsis #PE- continuation of Lovenox deferred to team pharmacy; general pharmacy recommended switching to heparin drip #Alcohol Use Disorder -Reports he is abstinent for 3-4months, then resumes occasional alcohol around 2-3 glasses of wine a few times a week to 2 shots of bourbon a few times a week, - Denying recent alcohol use, last drink prior to last hospitalization - PETH: 260 was 316 on 03/28/2025. - Monitor liver function with daily labs - Continue Folate - Continue PO Thiamine #Obesity - Body mass index is 34.71 kg/m??. - complicates all aspects of care Medications Home Medications Current Outpatient Medications Medication Instructions acetaminophen (TYLENOL) 1,000 mg, Oral, Every 8 hours PRN atorvastatin (LIPITOR) 10 mg, Daily carvedilol (COREG) 3.125 mg, Oral, 2 times daily enoxaparin (LOVENOX) 120 mg, Subcutaneous, Every 12 hours furosemide (LASIX) 40 mg, 2 times daily (0900 & 1500) ibuprofen 800 mg, Oral, Every 6 hours PRN lactulose (CHRONULAC) 10 g, Oral, Daily methocarbamol (ROBAXIN) 750 mg, Oral, 4 times daily PRN lcakmywxltts-xsoz-foxauabq-folic acid (Centrum) chewable tablet 1 tablet, Daily potassium chloride CR (Klor-Con) 10 MEQ ER tablet 10 mEq, Daily tamsulosin (FLOMAX) 0.4 mg, Oral, Daily with dinner Vitamin E 1,000 Units, Daily Scheduled: Current Scheduled Medications[4] Continuous: Current Continuous Medications[5] As needed: methocarbamol, 500 mg, 4x daily PRN sodium chloride, 10 mL, PRN Fluids: LR Electrolytes: Continue to monitor and replace as appropriate Diet: Adult diet Diet texture: Regular; Carbohydrate restriction: Consistent Carb 2 (80 gm max/meal); Fat restriction: Low Fat; Modified Calorie/Protein: High Calorie, High Protein DVT prophylaxis: SCDs + Lovenox prophylaxis Code status: Full Code Follow-up visit Future Appointments Date Time Provider Department Center 07/02/2025 9:10 AM Patricia Strauss APRN [facility] 07/22/2025 7:[address] [facility] 07/22/2025 8:45 AM Dyllan Paul MD [facility] Homero Gutierrez APRN, DNP [1] Past Medical History: Diagnosis Date Cancer [...] Neg Hx Malig Hyperthermia Neg Hx [4] atorvastatin, 10 mg, Oral, Daily lactulose, 10 g, Oral, TID sodium chloride, 10 mL, Intravenous, q12h tamsulosin, 0.4 mg, Oral, Daily with dinner vancomycin (Vancocin) intermittent dosing, 1 each, Intravenous, See admin instructions [5] * Consults - Bianka Hansen MD - 06/29/2025 2:23 AM EDTAssociated Order(s): Consult to Urology Consult to Urology Consult performed by: Eugene Ruggiero MD Consult ordered by: Kj Santos MD [facility] Urology Consult Note 06/29/25 Service Requesting Consultation: EM CC: c/f sepsis s/p RALP 06/12/25 HPI: Scout Lowe is a 70 y.o. male with PMH hepatic encephalopathy/decompensated alcoholic cirrhosis, PE, HTN, HLD, 6 mm non-obstructing right proximal ureteral stone, bladder stones, unfavorable intermediate risk prostate cancer s/p RALP w/PLND on 06/12/25 c/b transected umbilical vein and significantblood loss requiring ex lap, blood transfusions, and pressor support presenting to the ED due tofever, lethargy, and abdominal pain. He was admitted from 06/12-06/25 s/p RALP with ICU course complicated by acute hepatic encephalopathy and decompensated alcohol induced cirrhosis. He was eventually downgraded to the floor and catheter was removed prior to discharge after Fl cystogram demonstrated no evidence of anastomotic leak 06/20. He underwent a CT A/P on 06/22 due to increasing leukocytosis and multiple non- obstructing stones wereidentified as well as a RLL PE. He was treated with LMWH and transitioned to Lovenox which he is planned to take for 3 months. He was discharged to home on 06/25 with plans for clinic follow up in [address] U[address] with Dr. Paul. He is currently AF, HDS on 2 L/min O2. He was initially hypotensive to 93/62, tachy to the 110s, and hypoxic to low 90s upon presentation but this has improved with 1L LR bolus. WBC 23.92, Hgb 12.3, Cr 1.49, lactate 2.5. He is hyponatremic with Na 131, CRP 63.6. UA demonstrates yeast, neg bacteria neg nitrite, 11-20 WBC, >50 RBC. Urine and blood cultures pending. CTA C/A/P demonstrates no hydronephrosis bilaterally, an approximately 7 mm non- obstructing right proximal-mid ureteral stone, bladder wall thickening, and a 1 cm bladder stone. He was also found to have atelectasis, similar appearing liver cirrhosis, small volume ascites, submucosal edema of cecum and ascending colon, peripancreatic fat haziness, and scrotal edema. He is on Vanc/Zosyn. He and his state he was doing well at home until today. He called earlier today stating he hadnot had a BM in 2 days and was encouraged to continue the Lactulose and start home doc/senna. Over the course of the day, he has felt more ill, with a temp at home of 100.8F, fatigue, lethargy, and generalized abdominal pain. Denies N/V. He has not been eating much since he got home but he has beenattempting to stay hydrated with fluids. He states he is urinating normally and feels like he is emptying his bladder, he also constantly leaks urine at baseline. He has not had a BM in 2 days. His scrotum remains edematous but this has improved per patient and is not painful. His left lateral portsite continues to drain a significant amount of serous fluid and is covered with a dressing at thistime. Past Medical History: reviewed Past Medical History[1] Past Surgical History: reviewed Surgical History[2] Family History: reviewed Family History[3] Social History: reviewed Social History[4] Outpatient Medications: Current Outpatient Medications Medication Instructions acetaminophen (TYLENOL) 1,000 mg, Oral, Every 8 hours PRN atorvastatin (LIPITOR) 10 mg, Daily carvedilol (COREG) 3.125 mg, Oral, 2 times daily enoxaparin (LOVENOX) 120 mg, Subcutaneous, Every 12 hours furosemide (LASIX) 40 mg, 2 times daily (0900 & 1500) ibuprofen 800 mg, Oral, Every 6 hours PRN lactulose (CHRONULAC) 10 g, Oral, Daily methocarbamol (ROBAXIN) 750 mg, Oral, 4 times daily PRN lqemkkdmitoo-mope-vzjgjsta-folic acid (Centrum) chewable tablet 1 tablet, Daily potassium chloride CR (Klor-Con) 10 MEQ ER tablet 10 mEq, Daily tamsulosin (FLOMAX) 0.4 mg, Oral, Daily with dinner Vitamin E 1,000 Units, Daily ROS: 14 point review of systems was obtained and is negative except for as above in HPI. PHYSICAL EXAM: Temp: [36.7 ??C (98.1 ??F)-36.8 ??C (98.2 ??F)] 36.7 ??C (98.1 ??F) Heart Rate: [92-111] 92 Resp: [13-23] 13 BP: (93-111)/(62-67) 109/67 SpO2: [92 %-98 %] 94 % GEN: NAD, ill appearing HEENT: NCAT, EOMI RESP: Normal work of breathing on 2L O2 CV: Regular rate, appears well perfused ABD: Distended, soft, left lateral incision open and draining serous fluid, all other incisions c/d/I and healing appropriately : moderate penoscrotal edema and mild diffuse erythema. Non-TTP, no fluctuance, crepitus, or drainage identified EXT: No gross deformities MSK: Full ROM in BL UE NEURO: No focal deficits, alert and oriented PSYCH: Normal mood and affect LABS: Results from last 7 days Lab Units 06/28/25 2139 WBC 10*3/uL 23.92* HEMOGLOBIN g/dL 12.3* HEMATOCRIT % 34.7* PLATELETS 10*3/uL 128* Results from last 7 days Lab Units 06/28/25 2139 SODIUM mmol/L 131* POTASSIUM mmol/L 3.7 CHLORIDE mmol/L 98 CO2 mmol/L 20* BUN mg/dL 23 CREATININE mg/dL 1.49* EGFR mL/min/1.73m*2 50.2 GLUCOSE mg/dL 122* CALCIUM mg/dL 8.1* Results from last 7 days Lab Units 06/29/25 0200 COLOR UA [place] SPEC GRAV U 1.030 PH UA 5.5 PROTEIN UR mg/dL Trace* GLUCOSE UA mg/dL Negative KETONES UA mg/dL Trace* LEUKOCYTES UA Small* NITRITE UA Negative Results from last 7 days Lab Units 06/29/25 0200 COLOR UA [place] SPEC GRAV U 1.030 PH UA 5.5 PROTEIN UR mg/dL Trace* GLUCOSE UA mg/dL Negative KETONES UA mg/dL Trace* LEUKOCYTES UA Small* NITRITE UA Negative Imaging: I have personally reviewed the imaging below: === 06/28/25 === CT ANGIO ABDOMEN PELVIS - Narrative - CLINICAL INDICATION: recent prostatectomy c/b hemmorhagic shock, now with hypotension and hypoxia TECHNIQUE: Imaging of the chest abdomen and pelvis was performed, from thoracic inlet through pubic symphysis,using spiral technique, following administration of IV contrast, Omnipaque 350, 100 mL according tothe CTA thoracic aorta/chest and CTA Abdomen/Pelvis protocol. Reformatted images in the coronal, sagittal, and oblique planes were generated from the axial data set to facilitate diagnostic accuracy.In addition, 3D images were created and reviewed. Total DLP (Dose-Length Product): 2949.46 mGy.cm (accession [id number]), 2949.46 mGy.cm (accession [id number]). Please note: The reported value represents the total of one or more individual components during the CT acquisition on this date and at this time, and as such, the same value may appear in more than one CT report depending on the interpreting/reporting physicians. COMPARISON: 06/22/2025 FINDINGS: Chest: No mural hematoma within the thoracic aorta on the noncontrast portion of the examination. The arch vessels are patent. Mild calcific disease of the thoracic aorta, which appears without acute abnormality. Cardiac size is within normal limits. No pericardial effusion. No filling defects within the central, perihilar, or proximal segmental pulmonary arteries. Posterior dependent atelectasis of lungs. Elevation of the right hemidiaphragm, with associated subpleural atelectasis of the abutting basilar right lower lobe. No pleural effusions. No concerning mediastinal adenopathy by size criteria. No acute chest wall findings. No aggressive osseous lesions or interval changes. Abdomen/pelvis: Mild calcific aortoiliac atherosclerotic disease, the abdominal aorta is without acute finding, thevisceral and the pelvic arteries are patent. Small volume nonhemorrhagic appearing abdominal and pelvic ascites. No free abdominal gas. Small foci of gas within the space of Retzius. Similar cirrhotic morphology of liver, without appreciable parenchymal mass. Splenomegaly, as on the previous examination, axially measuring up to 19 cm, no acute parenchymal findings. No adrenal masses. Similar atrophic changes of the pancreas, without ductal dilation. Peripancreatic fat haziness. No hydronephrosis of the kidneys. Similar nonobstructing 6 mm calculus proximal right ureter at thelevel of L3/4. The stomach is not distended. There is no evidence of a small bowel obstruction. There is no significant distention of the colon. There appears to be some submucosal edema of the cecum and the ascending colon. The appendix is nondistended. Mild mesenteric edema, which may obscure subtle inflammation. No acute contrast extravasation is appreciated within the lumens of the stomach, small bowel, or the colon during the examination. Interval removal of Monroe catheter. Small amount of gas in the nondependent urinary bladder lumen, the urinary bladder does not appear to be significantly distended. Retained 10 mm bladder calculus. Bladder wall is thickened, and there is some mild perivesical fat haziness. No concerning pelvic or retroperitoneal adenopathy by size criteria. Recanalized umbilical vein to the left portal, one of the branches thereof appears thrombosed, similar to the previous examination. The portal vein, SMV, and splenic vein remain patent. Prominent collateral and coronary veins in the gastrohepatic ligament, and paraesophageal varices. Interval removal of Héctor-Yung drain from the abdomen. Scrotal edema, and subcutaneous edema at the base of the penis. No organized subcutaneous collections. No aggressive osseous lesions or interval changes. - Impression - 1. No acute findings regarding the intrathoracic or intra-abdominal aorta. Visceral and pelvic arteries are patent. 2. No consolidation appreciated within the lungs. 3. Similar cirrhotic morphology of liver, and splenomegaly, and small volume ascites, mildly increased in the interval. Other stigmata of portal hypertension as described above, to include prominent collateral and coronary veins in the gastrohepatic ligament, and paraesophageal varices. 4. Interval removal of Monroe catheter, with retained 10 mm bladder calculus. There appears be some perivesical fat haziness, and wall thickening urinary bladder, which may be secondary to underdistention, however recommend correlation with urinalysis, or symptoms of UTI. Small amount of gas within the nondependent lumen may be residua of recent Monroe catheterization. 5. No free intra-abdominal gas, tiny foci of gas within the space of Retzius. 6. No acute intraluminal contrast extravasation appreciated within the stomach, small bowel, or colon during the examination. 7. Submucosal edema of the cecum and of the ascending colon, most likely portal colopathy, however correlate for any symptoms of a colitis. 8. Stable position of 6 mm nonobstructing proximal ureteral calculus at the level of L3/4. 9. Peripancreatic fat haziness, which is most likely secondary to portal hypertension, however correlate for any elevation in serum lipase. 10. Scrotal edema, and subcutaneous edema at the base of the penis, no soft tissue emphysema in thescrotum, or perineum. CRITICAL RESULT: No. COMMUNICATION: Per this written report. Drafted by Jayme Amaya MD on 06/28/2025 11:21 PM Final report signed by Jayme Amaya MD on 06/28/2025 11:53 PM Assessment: Scout Lowe is a 70 y.o. male with PMH hepatic encephalopathy/decompensated alcoholiccirrhosis, recent PE on AC, HTN, HLD, 6 mm non-obstructing right proximal ureteral stone, bladder stones, unfavorable intermediate risk prostate cancer s/p RALP w/PLND on 06/12/25 c/b transected umbilical vein and significant blood loss requiring ex lap, blood transfusions, and pressor support presenting to the ED due to fever, lethargy, and abdominal pain. He was admitted from 06/12-06/25 s/p RALP with ICU course complicated by acute hepatic encephalopathy and decompensated alcohol induced cirrhosis. He was eventually downgraded to the floor and catheter was removed prior to discharge after Fl cystogram demonstrated no evidence of anastomotic leak 06/20. Discharged 06/25. He is currently AF, HDS on 2 L/min O2. He was initially hypotensive to 93/62, tachy to the 110s, and hypoxic to low 90s upon presentation but this has improved with 1L LR bolus. WBC 23.92, Hgb 12.3, Cr 1.49, lactate 2.5. He is hyponatremic with Na 131, CRP 63.6. UA demonstrates yeast, neg bacteria neg nitrite, 11-20 WBC,>50 RBC. Urine and blood cultures pending. CTA C/A/P demonstrates no hydronephrosis bilaterally,an approximately 7 mm non-obstructing right proximal-mid ureteral stone, bladder wall thickening, and a 1 cm bladder stone. He is on Vanc/Zosyn. Plan: - Recommend admission to for assistance with management of co-morbidities including hepatic encephalopathy/decompensated alcoholic cirrhosis, AUD, recent PE/DVT, hyponatremia - Continue broad spectrum IV abx and add antifungal to regimen, tailor to culture results when available - follow blood, urine cultures - monitor UOP - Lactulose, bowel regimen to ensure daily soft bowel movements - MMPC - serial scrotal exams, recommend scrotal elevation and keeping area dry - encourage IS, OOB when able - Daily AM labs - Urology will continue to follow - PVR scans to ensure bladder is adequately emptying - continue flomax to to encourage ureteral stone passage - urology team will come by to throw in stitch at DANILO drain site as still leaking fluid Eugene Ruggiero MD Urology PGY-3 Pager: [phone] - I addended plan after rounding with attending Dr. Hilario- MPB Bianka Hansen MD Department of Urology, PGY-1 Pager: [phone] [1] Past Medical History: Diagnosis Date Cancer [...] Comment: Currently social use. Drug use: Never Cosigned by Camden Hilario MD at 07/01/2025 6:44 AM EDT Associated attestation - Camden Hilario MD - 07/01/2025 6:44 AM EDT I saw and evaluated the patient with the resident/fellow. I discussed the case with the resident/fellow and agree with the findings and plan as documented. * Care Plan - Tenisha Amador RN - 06/28/2025 9:12 PM EDT Problem: Adult Inpatient Plan of Care Goal: Plan of Care Review 06/29/20251524 by Tenisha Amador RN Outcome: Ongoing, Progressing 06/29/20251522 by Tenisha Amador RN Outcome: Ongoing, Not Progressing Flowsheets (Taken 06/29/2025 152) Plan of Care Reviewed With: patient Goal: Patient-Specific Goal (Individualized) 06/29/20251524 by Tenisha Amador RN Outcome: Ongoing, Progressing 06/29/20251522 by Tenisha Amador RN Outcome: Ongoing, Not Progressing Note: Pt will remain free from falls for entire shift Goal: Absence of Hospital-Acquired Illness or Injury 06/29/20251524 by Tenisha Amador RN Outcome: Ongoing, Progressing 06/29/20251522 by Tenisha Amador RN Outcome: Ongoing, Not Progressing Intervention: Identify and Manage Fall Risk Flowsheets (Taken 06/29/2025 152) Safety Promotion/Fall Prevention: activity supervised Intervention: Prevent Skin Injury Flowsheets (Taken 06/29/20251522) Body Position: education provided Intervention: Prevent and Manage VTE (Venous Thromboembolism) Risk Flowsheets (Taken 06/29/20251522) VTE Prevention/Management: SCDs (sequential compression devices) on Intervention: Prevent Infection Flowsheets (Taken 06/29/20251522) Infection Prevention: environmental surveillance performed Goal: Optimal Comfort and Wellbeing 06/29/20251524 by Tenisha Amador RN Outcome: Ongoing, Progressing 06/29/20251522 by Tenisha Amador RN Outcome: Ongoing, Not Progressing Intervention: Monitor Pain and Promote Comfort Flowsheets (Taken 06/29/20251522) Pain Management Interventions: breathing exercises Intervention: Provide Person-Centered Care Flowsheets (Taken 06/29/20251522) Trust Relationship/Rapport: care explained Problem: Skin Injury Risk Increased Goal: Skin Health and Integrity 06/29/20251524 by Tenisha Amador RN Outcome: Ongoing, Progressing 06/29/20251522 by Tenisha Amador RN Outcome: Ongoing, Not Progressing Intervention: Optimize Skin Protection Flowsheets (Taken 06/29/20251522) Activity Management: activity adjusted per tolerance Intervention: Promote and Optimize Oral Intake Flowsheets (Taken 06/29/20251522) Oral Nutrition Promotion: social interaction promoted * ED Provider Notes - Amaury Muhammad MD - 06/28/2025 9:12 PM EDT - HPI Chief Complaint Patient presents with Fever Post-op Problem Fatigue HPI Scout Lowe is a 70 year-old male with past medical history of unfavorable intermediate risk prostate cancer s/p adical robotic-assisted prostatectomy and bilateral pelvic lymph node dissection on 06/12/25 (post-op course complicated by transection of a patent umbilical vein requiring exploratory laparotomy, blood transfusion, and pressor support, as well as hepatic encephalopathy/decompensated alcoholic cirrhosis, ultimately discharged home 06/25/25, catheter removed prior to discharge), presents to the emergency department accompanied by his for evaluation of lethargy, fever, and abdominal pain. at bedside helps contribute to the following history. The patient was initially doingokay postoperatively but over the course of today has felt more sick. He has been very fatigued, lethargic, and developed a fever with T-max of 100.8?? F at home. Additionally has been complaining ofgeneralized abdominal pain. notes has not had a bowel movement in 2 days, has been compliant with his lactulose at home. Patient and deny any recent vomiting, diarrhea, chest pain, cough, shortness on breath. Patient History Past Medical History[1] Surgical History[2] Family History[3] Social History[4] Allergies: Allergies[5] Physical Exam ED Triage Vitals [06/28/252118] Temp Heart Rate Resp BP 36.8 ??C (98.2 ??F) 111 22 93/62 SpO2 Temp src Heart Rate Source Patient Position 92 % -- -- -- BP Location FiO2 (%) -- -- Physical Exam Vitals and nursing note reviewed. Constitutional: Appearance: He is well-developed. Comments: Tired appearing. Mildly diaphoretic. HENT: Head: Normocephalic and atraumatic. Eyes: Conjunctiva/sclera: Conjunctivae normal. Cardiovascular: Rate and Rhythm: Regular rhythm. Tachycardia present. Pulmonary: Effort: Pulmonary effort is normal. No respiratory distress. Breath sounds: Normal breath sounds. Abdominal: Palpations: Abdomen is soft. Comments: Mild generalized tenderness to palpation. Skin: General: Skin is warm and dry. Neurological: Mental Status: He is alert and oriented to person, place, and time. Comments: Somewhat slow to respond EASI ?? Total Score: 0 No data recorded TRST Assessment Total: 1 ED Course & MDM - Medical Decision Making Pertinent History: In brief, Scout Lowe is a 70 y.o. male who presented to the ED for evaluation of lethargy, fever, abdominal pain. It should be noted that their chronic conditions includes prostate CA w recent prostatectomy, whichcurrently is not at goal therapy. This complicates the clinical picture because it Comorbidities: may be exacerbating symptoms, increases the amount and complexity of data to be reviewed, complicatesthe clinical workup, and increases the risk for morbidity On arrival to our emergency department the patient has initial hypotension with systolics in the 90s, tachycardia in the 110s, and hypoxia in the low 90s, placed on supplemental oxygen via nasal cannula and IV fluid resuscitation initiated. On arrival to the emergency department the patient is somewhat ill-appearing; he is tired appearing, mildly diaphoretic, on supplemental oxygen via nasal cannula which is a new requirement, and is somewhat slow to respond. Initial blood pressure in triage was in the 90s systolic. Concern for both septic shock as well as possible hemorrhagic shock especially given the patient's recent intraoperative hemorrhagic complication (vein transection). Initiated IV fluid resuscitation and initiated broadinfectious workup as well as CTA imaging of the chest and abdomen/pelvis. We will obtain blood cultures. No fever on arrival but we will have low threshold to initiate broad-spectrum antibiotics. Additionally, performed a point of care ultrasound at bedside, does have a small amount of fluid aroundthe liver which could represent blood or could represent acute on chronic ascites. If labs reflect acute hemoglobin drop or if he becomes more unstable will also have low threshold to initiate blood product resuscitation. Based on the patient's presentation, medical history, and physical exam, my initial differential diagnosis includes but is not limited to: UTI, PNA, septic shock, hemorrhagic shock, cystitis, pyelonephritis, infected stone, PE. ED Medication Summary: ED Medication Administration from 06/28/20252 to 06/29/2025 0519 Date/Time Order Dose Route Action 06/28/2025 2141 EDT lactated Ringer's infusion 1,000 mL 1,000 mL Intravenous New Bag 06/28/2025 2222 EDT piperacillin-tazobactam (Zosyn) 4.5 g in sodium chloride 0.9% 100 mL IVPB (vialadapter required) -- Intravenous Canceled Entry 06/28/2025 2224 EDT piperacillin-tazobactam (Zosyn) 4.5 g in sodium chloride 0.9% 100 mL IVPB (vialadapter required) 4.5 g Intravenous New Bag 06/28/2025 2251 EDT iohexol (OMNIPaque) 350 MG/ML injection 100 mL 100 mL Intravenous Given 06/28/2025 230 EDT morphine PF 4 mg 4 mg Intravenous Given 06/28/2025 2308 EDT lactated Ringer's infusion 1,000 mL 0 mL Intravenous Stopped 06/28/2025 2308 EDT piperacillin-tazobactam (Zosyn) 4.5 g in sodium chloride 0.9% 100 mL IVPB (vialadapter required) 0 g Intravenous Stopped 06/28/2025 2308 EDT vancomycin (Vancocin) 2,750 mg in sodium chloride 0.9 % 500 mL IVPB 2,750 mg Intravenous New Bag 06/29/2025 0400 EDT vancomycin (Vancocin) 2,750 mg in sodium chloride 0.9 % 500 mL IVPB 0 mg Intravenous Stopped Testing: Orders Placed This Encounter Procedures Blood Culture (Aerobic/Anaerobet Set) Blood Culture (Aerobic/Anaerobet Set) CT Angio Chest CT Angio Abdomen Pelvis PT-INR CBC w/diff APTT Type and screen CMP Troponin now and 120 min C-Reactive protein Urinalysis with reflex microscopic AND reflex culture (IF UTI SUSPECTED) Urinalysis with reflex microscopic (Culture NOT Included) Urine Salcedo Panel Insert peripheral IV Results & Interpretation: I personally reviewed the patient's labs results with relevant findings documented as follows in EDcourse: I personally reviewed the patient's imaging results with relevant findings documented as follows inED course: See radiology read for official interpretation. ED Course as of 06/30/25 1541 Sat Jun 28, 2025 2350 CBC w/diff(!) Marked leukocytosis to 23.92. Hgb stable at 12.3 [BN] 2350 CMP(!) LALITA with Food Tray Assembler 1.49 (already getting IVF repletion). Sodium 131, AST 67, Bili 2.8 [BN] 2351 C-Reactive protein(!) 63.6, similar but slightly higher compared to last draw 6 days prior [BN] 2351 POCT venous blood gas gem(!) Slight lactate elevation at 2.5, alkalosis [BN] Sun Jun 29, 2025 0118 Lymphocytes %: 37 [BN] ED Course User Index [BN] Amaury Muhammad MD Clinical Impressions as of 06/30/25 1541 Febrile illness Hypotension, unspecified hypotension type On initial arrival here the patient was hypotensive in the 90s systolic but has been fluid responsive. Received IVF bolus, Vanc, Zosyn on arrival. Has also been on 2L NC to maintain sats. ED w/u notable for: WBC 24k, LALITA with Food Tray Assembler 1.49, Na 131, CRP 63.6, UA with >50 RBC and 11-20 WBC. Sent for CTA Chest and Abdomen/Pelvis, showing: no PNA, similar cirrhosis and mild ascites, retained 10mm bladder calculus, bladder haziness and thickening, stable position of 6 mm non-obstructing proximal ureteral calculus, and some edema of scrotum and base of penis. Seems to have likely septic shock from UTI. Will consult Urology. Consults: I consulted and had an interactive discussion with the following service(s) regarding this patient's case: Urology, Hospital Medicine. Their recommendations were as follows: - Consulted Urology for recs. Uro recommended admission to for assistance with management of co-morbidities including hepatic encephalopathy/decompensated alcoholic cirrhosis, AUD, recent PE/DVT, hyponatremia with the following recs: - Continue broad spectrum IV abx, tailored to culture results when available - recommend adding antifungal to regimen based on UA - follow blood, urine cultures - monitor UOP - Lactulose, bowel regimen to ensure daily soft bowel movements - MMPC - serial scrotal exams, recommend scrotal elevation and keeping area dry - encourage IS, OOB when able - Daily AM labs - Urology will continue to follow -Consulted Hospital Medicine, they will admit for further management. Follow-Up & Disposition: Ultimately, this patient Was admitted (Admission) The primary encounter diagnosis was Febrile illness. A diagnosis of Hypotension, unspecified hypotension type was also pertinent to this visit. Patient believed to require admission for the listed diagnoses. The Internal Medicine service was consulted for admission and was agreeable to admit to Acute Floor (Med/Surg). Amaury Muhammad MD [1] Past Medical History: Diagnosis Date Cancer ([facility]) january 26, 2025 Cirrhosis ([facility]) 2021 History of methicillin resistant Staphylococcus aureus 2011 Hyperlipidemia Hypertension Kidney stone various Metabolic encephalopathy 06/17/2025 Substance abuse alcohol [2] Past Surgical History: Procedure Laterality Date CHOLECYSTECTOMY 2009 lap KNEE ARTHROSCOPY W/ MENISCAL REPAIR OTHER SURGICAL HISTORY Lipoma resection UMBILICAL HERNIA REPAIR [3] Family History Problem Relation Name Age of Onset Heart disease Mother Anesthesia problems Neg Hx Malig Hyperthermia Neg Hx [4] Tobacco Use Smoking status: Never Passive exposure: Never Smokeless tobacco: Never Vaping Use Vaping status: Never Used Substance Use Topics Alcohol use: Yes Comment: Currently social use. Drug use: Never [5] No Known Allergies Amaury Muhammad MD Resident 06/30/25 [id number] Cosigned by Rg Coleman MD at 07/06/2025 10:07 AM EDT Associated attestation - Rg Coleman MD - 07/06/2025 10:07 AM EDT I saw and evaluated the patient with the resident/fellow. I discussed the case with the resident/fellow and agree with the findings and plan as documented. * ED Triage Notes - Frandy Bailon, RN - 06/28/2025 9:12 PM EDT Pt recently d/c from hospital secondary to prost ectomy. Pt acquired pneumonia while here and sent home Monday. Pt normally very alert but is lethargic, general malaise. 100.8 at home. Tylenol 325mg given architectural project captain 98.5 in triage, pt 92% on room, pt d/c around 96/97% per . Tachy at 112 BG documented in this encounter Plan of Treatment Upcoming Encounters Date Type Department Care Team (Latest Contact Info) Description 08/22/2025 9:00 AM EDT Office Visit [facility] Nephrology, Bone & Mineral Metabolism [address], [address] [place] [address] Kathia Watkins MD [address] [place] [address] 08/28/2025 8:50 AM EDT Hospital Encounter [facility] [address] [place] [id number] Dyllan Paul MD [address] [place] [id number] 08/28/2025 8:50 AM EDT Anesthesia Event [facility] [address] [place] [address] Paige Starkey, ASSOCIATE PROFESSOR OF ARCHAEOLOGY [address] [place] [address] 08/28/2025 8:50 AM EDT - 08/28/2025 10:35 AM EDT Surgery [facility] [address] [place] [address] Dyllan Paul MD [address] [place] [address] URETEROSCOPY, WITH LASER LITHOTRIPSY [34228 (CPT )] 10/28/2025 8:00 AM EST [facility] Visit [facility] [address] [place] [address] Pavan Aldrich MD [address] [place] [address] Scheduled Procedures Name Priority Associated Diagnoses Date/Ti me URETEROSCOPY, WITH LASER LITHOTRIPSY Ureteral stone 08/28/2025 8:50 AM EDT Scheduled Referrals Name Type Priority Associated Diagnoses Order Schedule Ambulatory referral to Urology Outpatient Referral Routine Right ureteral stone Cirrhosis of liver with ascites, unspecified hepatic cirrhosis type (CMS/HCC) 1 Occurrences starting 07/04/2025 until 01/05/2027 Ambulatory referral to Gastroenterology Outpatient Referral Routine Right ureteral stone Cirrhosis of liver with ascites, unspecified hepatic cirrhosis type (CMS/HCC) 1 Occurrences starting 07/04/2025 until 01/05/2027 documented as of this encounter Goals Goal Patient Goal Type Associated Problems Recent Progress Patient-Stated? Author Autogenerat ed Goal Care Plan Autogenerated Problem No Johnna Quiñones documented as of this encounter Procedures Procedure Name Priority Date/Time Associated Diagnosis Comments CBC W/O DIFFERENTIAL Routine 07/04/2025 5:26 AM EDT COMPREHENSIVE METABOLIC PANEL, PLASMA Routine 07/04/2025 5:26 AM EDT FL LESS THAN 1 HOUR (NON-REPORTABLE) Routine 07/03/2025 6:15 PM EDT CALCULI (KIDNEY STONE)ANALYSIS (SO) STAT 07/03/2025 6:12 PM EDT Right ureteral stone GA OPEN BLADDER,REMV CALCULUS 07/03/2025 5:10 PM EDT Right ureteral stone Special Needs Cmax GA CYSTOSCOPY,INSERT URETERAL STENT 07/03/2025 5:10 PM EDT Right ureteral stone Special Needs Cmax PROTHROMBIN TIME(PT) / INR Routine 07/03/2025 6:21 AM EDT CBC W/O DIFFERENTIAL Routine 07/03/2025 6:21 AM EDT COMPREHENSIVE METABOLIC PANEL, PLASMA Routine 07/03/2025 6:21 AM EDT COMPREHENSIVE METABOLIC PANEL, PLASMA Routine 07/02/2025 5:01 AM EDT CBC WITH AUTO DIFFERENTIAL Routine 07/01/2025 4:59 AM EDT PHOSPHORUS, PLASMA Routine 07/01/2025 4: 59 AM EDT MAGNESIUM, PLASMA Routine 07/01/2025 4:5 9 AM EDT COMPREHENSIVE METABOLIC PANEL, PLASMA Routine 07/01/2025 4:59 AM EDT URINALYSIS MICROSCOPIC FOR UA REFLEX Routine 06/30/2025 6:20 PM EDT URINALYSIS WITH REFLEX MICROSCOPIC Routine 06/30/2025 6:20 PM EDT LACTATE, VENOUS Routine 06/30/2025 3:11 PM EDT CBC WITH AUTO DIFFERENTIAL Routine 06/30/2025 3:11 PM EDT PHOSPHORUS, PLASMA Routine 06/30/2025 3: 11 PM EDT MAGNESIUM, PLASMA Routine 06/30/2025 3: 11 PM EDT BASIC METABOLIC PANEL, PLASMA Routine 06/30/2025 3:11 PM EDT VANCOMYCIN, RANDOM, PLASMA Routine 06/30/2025 12:48 PM EDT CYSTATIN C Routine 06/30/2025 6:01 AM EDT SEDIMENTATION RATE, AUTOMATED Routine 06/30/2025 6:01 AM EDT AMMONIA, PLASMA Routine 06/30/2025 6:01 AM EDT VANCOMYCIN, RANDOM, PLASMA STAT 06/29/2025 6:05 PM EDT US ABDOMEN FOCUSED REGION Routine 06/29/2025 3:37 PM EDT UREA NITROGEN, RANDOM URINE Routine 06/29/2025 12:10 PM EDT CREATININE, RANDOM URINE Routine 06/29/2025 12:10 PM EDT MULTI DRUG RESISTANCE TEST Routine 06/29/2025 9:39 AM EDT METHICILLIN RESISTANT STAPHYLOCOCCUS AUREUS (MRSA) BY PCR Routine 06/29/2025 9:39 AM EDT WOUND CULTURE AND GRAM STAIN Routine 06/29/2025 9:39 AM EDT LACTATE, VENOUS Routine 06/29/2025 6:52 AM EDT IONIZED CALCIUM, WHOLE BLOOD Routine 06/29/2025 6:52 AM EDT CYSTATIN C Routine 06/29/2025 6:52 AM EDT PROCALCITONIN, PLASMA Routine 06/29/2025 6:52 AM EDT GAMMA GLUTAMYLTRANSFERASE, PLASMA Routine 06/29/2025 6:52 AM EDT BASIC METABOLIC PANEL, PLASMA Routine 06/29/2025 6:52 AM EDT SEND SELIN MESSAGE STAT 06/29/2025 2: 00 AM EDT URINALYSIS WITH REFLEX MICROSCOPIC AND CULTURE STAT 06/29/2025 2:00 AM EDT URINE SALCEDO PANEL STAT 06/29/2025 2:00 AM EDT URINALYSIS MICROSCOPIC FOR UA REFLEX STAT 06/29/2025 2:00 AM EDT URINALYSIS WITH REFLEX MICROSCOPIC STAT 06/29/2025 2:00 AM EDT URINE CULTURE STAT 06/29/2025 2:00 AM EDT TROPONIN T, HIGH SENSITIVITY, 2 HOUR, PLASMA Timed 06/28/2025 11:[address] ANGIO ABDOMEN PELVIS STAT 06/28/2025 11:[address] ANGIO CHEST STAT 06/28/2025 11:11 PM EDT TROPONIN T, HIGH SENSITIVITY, 0 HOUR, PLASMA, REFLEX TO 2 HOUR STAT 06/28/2025 9:39 PM EDT BLOOD CULTURE (AEROBIC/ANAEROBIC SET) STAT 06/28/2025 9:39 PM EDT BLOOD CULTURE (AEROBIC/ANAEROBIC SET) STAT 06/28/2025 9:39 PM EDT APTT STAT 06/28/2025 9:39 PM EDT PROTHROMBIN TIME(PT) / INR STAT 06/28/2025 9:39 PM EDT CBC WITH AUTO DIFFERENTIAL STAT 06/28/2025 9:39 PM EDT TYPE AND SCREEN STAT 06/28/2025 9:39 PM EDT C-REACTIVE PROTEIN, PLASMA STAT 06/28/2025 9:39 PM EDT LIPASE, PLASMA Add-On 06/28/2025 9:39 PM EDT COMPREHENSIVE METABOLIC PANEL, PLASMA STAT 06/28/2025 9:39 PM EDT POCT VENOUS BLOOD GAS GEM UNSOLICITED RESULTS Routine 06/28/2025 9:33 PM EDT POCT GLUCOSE METER UNSOLICITED RESULTS Routine 06/28/2025 9:22 PM EDT documented in this encounter Results * (ABNORMAL) CBC W/O Differential (07/04/2025 5:26 AM EDT) [facility] WBC Count 10.13 3.70 - 10.30 10*3/uL LAB HEMATOLOGY METHOD 07/04/2025 5:48 AM EDT [facility] RBC Count 3.46(L) 4.60 - 6.10 10*6/uL LAB HEMATOLOGY METHOD 07/04/2025 5:48 AM EDT [facility] HGB 11.3(L) 13.7 - 17.5 g/dL LAB HEMATOLOGY METHOD 07/04/2025 5:48 AM EDT [facility] HCT 33.0(L) 40.0 - 51.0 % LAB HEMATOLOGY METHOD 07/04/2025 5:48 AM EDT [facility] Platelet Count 114(L) 155 - 369 10*3/uL LAB HEMATOLOGY METHOD 07/04/2025 5:48 AM EDT [facility] MCV 95 79 - 98 fL LAB HEMATOLOGY METHOD 07/04/2025 5:48 AM EDT [facility] MCH 32.7(H) 26.0 - 32.0 pg LAB HEMATOLOGY METHOD 07/04/2025 5:48 AM EDT [facility] MCHC 34.2 30.7 - 35.5 g/dL LAB HEMATOLOGY METHOD 07/04/2025 5:48 AM EDT [facility] RDW 15.7(H) 11.5 - 14.5 % LAB HEMATOLOGY METHOD 07/04/2025 5:48 AM EDT [facility] MPV 11.0 8.8 - 12.5 fL LAB HEMATOLOGY METHOD 07/04/2025 5:48 AM EDT [facility] nRBC 0.0 <=0.0 per 100 WBCs LAB HEMATOLOGY METHOD 07/04/2025 5:48 AM EDT [facility] Blood Venous blood specimen / Unknown Venipuncture / Unknown 07/04/2025 5:26 AM EDT 07/04/2025 5:37 AM EDT us Quentin Anderson MD LAB BLOOD ORDERABLES Final Result [facility] [address] [place] [address] * (ABNORMAL) Comprehensive Metabolic Panel, Plasma (07/04/2025 5:26 AM EDT) Glucose, Plasma 147(H) 74 - 99 mg/dL 07/04/2025 6:07 AM EDT [facility] BUN, Plasma 41(H) 8 - 23 mg/dL 07/04/2025 6:07 AM EDT [facility] Creatinine, Plasma 1.83(H) 0.70 - 1.20 mg/dL 07/04/2025 6:07 AM EDT [facility] BUN/Creatinine Ratio 22 07/04/2025 6:07 AM EDT [facility] Sodium, Plasma 127(L) 136 - 145 mmol/L 07/04/2025 6:07 AM EDT [facility] Potassium, Plasma 4.3 3.6 - 4.9 mmol/L 07/04/2025 6:07 AM EDT [facility] Chloride, Plasma 98 97 - 107 mmol/L 07/04/2025 6:07 AM EDT [facility] CO2, Plasma 18(L) 22 - 29 mmol/L 07/04/2025 6:07 AM EDT [facility] Anion Gap 11 6 - 16 mmol/L 07/04/2025 6:07 AM EDT [facility] Total Calcium, Plasma 7.6(L) 8.9 - 10.2 mg/dL 07/04/2025 6:07 AM EDT [facility] Total Protein 4.8(L) 6.3 - 7.9 g/dL 07/04/2025 6:07 AM EDT [facility] Albumin, Plasma 2.3(L) 3.5 - 5.2 g/dL 07/04/2025 6:07 AM EDT [facility] AST, Plasma 41 10 - 50 U/L 07/04/2025 6:07 AM EDT [facility] ALT, Plasma 24 10 - 50 U/L 07/04/2025 6:07 AM EDT [facility] Alkaline Phosphatase, Plasma 133(H) 40 - 115 U/L 07/04/2025 6:07 AM EDT [facility] Total Bilirubin, Plasma 1.2(H) 0.2 - 1.1 mg/dL 07/04/2025 6:07 AM EDT [facility] eGFRcr 39.2 mL/min/1.7 3m*2 07/04/2025 6:07 AM EDT [facility] Comment:Reported eGFRcr in m L/min/1.73m2 is based the CKD-EPI 2020 equation that does not use a race coefficient. Blood Venous blood specimen / Unknown Venipuncture / Unknown 07/04/2025 5:26 AM EDT 07/04/2025 5:35 AM EDT us Quentin Anderson MD LAB BLOOD ORDERABLES Final Result [facility] [address] [place] [address] * FL Less than 1 Hour Intraoperative (07/03/2025 6:15 PM EDT) Narrative IMAGING - 07/03/2025 6:17 PM EDT Images were obtained for surgical purposes. See Dyllan Paul's surgical note in the patient's chart for the findings. us Dyllan Paul MD IMG FLUOROSCOPY PROCEDURES Fi nal Result IMAGING * Calculi (Kidney Stone) Analysis (07/03/2025 6:12 PM EDT) Calculi Mass 807 mg 07/08/2025 6:16 PM EDT [facility] ([facility]) Calculi Description See Note 07/08/2025 6:16 PM EDT [facility] Calculi Composition See Note 07/08/2025 6:16 PM EDT [facility] ([facility]) Calculus Urinary bladder structure / Unknown 07/03/2025 6:12 PM EDT 07/03/2025 6:35 PM EDT Comment:Pre-op diagnosis: Right ureteral stone [N20.1] Narrative [facility]) - 07/08/2025 6:16 PM EDT Specimen consists of one brown and ritchie calculus. The total weight is 807 mg. Calculi composed primarily of: 10% calcium oxalate monohydrate, 80% calcium oxalate dihydrate, and 10% calcium phosphate (hydroxy- and carbonate- apatite). INTERPRETIVE INFORMATION: Calculi (Stone) analysis Calculi are the products of physiological processes that yield crystalline compounds in a matrix of biological compounds and blood. Matrix components are not reported. The clinically significant crystalline components identified in calculi specimens are reported. Gross description may not be consistent with composition determined by FTIR analysis. Performed By: [facility] [address] [place] [id number] Machine Pack Assembler: Sotero Banuelos MD, PhD CLIA Number: [id number] Dyllan Paul MD LAB REF LAB BLOOD AND FLUID O RD Final Result [facility] ([facility]) [address] [place] [address] * (ABNORMAL) Prothrombin Time/INR (07/03/2025 6:21 AM EDT) Prothrombin Time 21.7(H) 12.0 - 14.3 sec LAB COAGULATION METHOD 07/03/2025 6:47 AM EDT [facility] INR 1.9(H) 0.9 - 1.1 LAB COAGULATION METHOD 07/03/2025 6:47 AM EDT [facility] Blood Venous blood specimen / Unknown Venipuncture / Unknown 07/03/2025 6:21 AM EDT 07/03/2025 6:30 AM EDT Narrative [facility] - 07/03/2025 6:47 AM EDT OPTIMAL INR RANGES FOR PATIENT ON ORAL ANTICOAGULANT THERAPY Prevention of venous thromboembolism INR 2.0 to 3.0 In patients with heart disease: Atrial fibrillation INR 2.0 to 3.0 Valvular heart disease INR 2.0 to 3.0 Tissue heart valves INR 2.0 to 3.0 Mechanical prosthetic valves INR 2.5 to 3.5 Prevention of recurrent DE INR 2.5 to 3.5 us Quentin Anderson MD LAB BLOOD ORDERABLES Final Result [facility] [address] [place] [address] * (ABNORMAL) CBC W/O Differential (07/03/2025 6:21 AM EDT) WBC Count 10.55(H) 3.70 - 10.30 10*3/uL LAB HEMATOLOGY METHOD 07/03/2025 6:40 AM EDT [facility] RBC Count 3.41(L) 4.60 - 6.10 10*6/uL LAB HEMATOLOGY METHOD 07/03/2025 6:40 AM EDT [facility] HGB 11.3(L) 13.7 - 17.5 g/dL LAB HEMATOLOGY METHOD 07/03/2025 6:40 AM EDT [facility] HCT 32.2(L) 40.0 - 51.0 % LAB HEMATOLOGY METHOD 07/03/2025 6:40 AM EDT [facility] Platelet Count 110(L) 155 - 369 10*3/uL LAB HEMATOLOGY METHOD 07/03/2025 6:40 AM EDT [facility] MCV 94 79 - 98 fL LAB HEMATOLOGY METHOD 07/03/2025 6:40 AM EDT [facility] MCH 33.1(H) 26.0 - 32.0 pg LAB HEMATOLOGY METHOD 07/03/2025 6:40 AM EDT [facility] MCHC 35.1 30.7 - 35.5 g/dL LAB HEMATOLOGY METHOD 07/03/2025 6:40 AM EDT [facility] RDW 15.9(H) 11.5 - 14.5 % LAB HEMATOLOGY METHOD 07/03/2025 6:40 AM EDT [facility] MPV 11.0 8.8 - 12.5 fL LAB HEMATOLOGY METHOD 07/03/2025 6:40 AM EDT [facility] nRBC 0.0 <=0.0 per 100 WBCs LAB HEMATOLOGY METHOD 07/03/2025 6:40 AM EDT [facility] Blood Venous blood specimen / Unknown Venipuncture / Unknown 07/03/2025 6:21 AM EDT 07/03/2025 6:30 AM EDT us Quentin Anderson MD LAB BLOOD ORDERABLES Final Result [facility] [address] [place] [address] * (ABNORMAL) Comprehensive Metabolic Panel, Plasma (07/03/2025 6:21 AM EDT) Glucose, Plasma 90 74 - 99 mg/dL 07/03/2025 7:00 AM EDT [facility] BUN, Plasma 36(H) 8 - 23 mg/dL 07/03/2025 7:00 AM EDT [facility] Creatinine, Plasma 1.54(H) 0.70 - 1.20 mg/dL 07/03/2025 7:00 AM EDT [facility] BUN/Creatinine Ratio 23 07/03/2025 7:00 AM EDT [facility] Sodium, Plasma 128(L) 136 - 145 mmol/L 07/03/2025 7:00 AM EDT [facility] Potassium, Plasma 3.8 3.6 - 4.9 mmol/L 07/03/2025 7:00 AM EDT [facility] Chloride, Plasma 98 97 - 107 mmol/L 07/03/2025 7:00 AM EDT [facility] CO2, Plasma 19(L) 22 - 29 mmol/L 07/03/2025 7:00 AM EDT [facility] Anion Gap 11 6 - 16 mmol/L 07/03/2025 7:00 AM EDT [facility] Total Calcium, Plasma 7.5(L) 8.9 - 10.2 mg/dL 07/03/2025 7:00 AM EDT [facility] Total Protein 4.8(L) 6.3 - 7.9 g/dL 07/03/2025 7:00 AM EDT [facility] Albumin, Plasma 2.2(L) 3.5 - 5.2 g/dL 07/03/2025 7:00 AM EDT [facility] AST, Plasma 42 10 - 50 U/L 07/03/2025 7:00 AM EDT [facility] Comment:Hemolyzed, result ma y be falsely increased. ALT, Plasma 24 10 - 50 U/L 07/03/2025 7:00 AM EDT [facility] Alkaline Phosphatase, Plasma 128(H) 40 - 115 U/L 07/03/2025 7:00 AM EDT [facility] Total Bilirubin, Plasma 1.4(H) 0.2 - 1.1 mg/dL 07/03/2025 7:00 AM EDT [facility] eGFRcr 48.2 mL/min/1.7 3m*2 07/03/2025 7:00 AM EDT [facility] Comment:Reported eGFRcr in m L/min/1.73m2 is based the CKD-EPI 2020 equation that does not use a race coefficient. Blood Venous blood specimen / Unknown Venipuncture / Unknown 07/03/2025 6:21 AM EDT 07/03/2025 6:30 AM EDT us Quentin Anderson MD LAB BLOOD ORDERABLES Final Result [facility] [address] [place] [address] * (ABNORMAL) Comprehensive Metabolic Panel, Plasma (07/02/2025 5:01 AM EDT) Glucose, Plasma 93 74 - 99 mg/dL 07/02/2025 6:19 AM EDT [facility] BUN, Plasma 31(H) 8 - 23 mg/dL 07/02/2025 6:19 AM EDT [facility] Creatinine, Plasma 1.34(H) 0.70 - 1.20 mg/dL 07/02/2025 6:19 AM EDT [facility] BUN/Creatinine Ratio 23 07/02/2025 6:19 AM EDT [facility] Sodium, Plasma 129(L) 136 - 145 mmol/L 07/02/2025 6:19 AM EDT [facility] Potassium, Plasma 3.7 3.6 - 4.9 mmol/L 07/02/2025 6:19 AM EDT [facility] Chloride, Plasma 102 97 - 107 mmol/L 07/02/2025 6:19 AM EDT [facility] CO2, Plasma 20(L) 22 - 29 mmol/L 07/02/2025 6:19 AM EDT [facility] Anion Gap 7 6 - 16 mmol/L 07/02/2025 6:19 AM EDT [facility] Total Calcium, Plasma 7.1(L) 8.9 - 10.2 mg/dL 07/02/2025 6:19 AM EDT [facility] Total Protein 4.7(L) 6.3 - 7.9 g/dL 07/02/2025 6:19 AM EDT [facility] Albumin, Plasma 2.2(L) 3.5 - 5.2 g/dL 07/02/2025 6:19 AM EDT [facility] AST, Plasma 37 10 - 50 U/L 07/02/2025 6:19 AM EDT [facility] ALT, Plasma 26 10 - 50 U/L 07/02/2025 6:19 AM EDT [facility] Alkaline Phosphatase, Plasma 114 40 - 115 U/L 07/02/2025 6:19 AM EDT [facility] Total Bilirubin, Plasma 1.7(H) 0.2 - 1.1 mg/dL 07/02/2025 6:19 AM EDT [facility] eGFRcr 57.0 mL/min/1.7 3m*2 07/02/2025 6:19 AM EDT [facility] Comment:Reported eGFRcr in m L/min/1.73m2 is based the CKD-EPI 2020 equation that does not use a race coefficient. Blood Venous blood specimen / Unknown Venipuncture / Unknown 07/02/2025 5:01 AM EDT 07/02/2025 5:12 AM EDT us Quentin Anderson MD LAB BLOOD ORDERABLES Final Result [facility] [address] [place] [address] * (ABNORMAL) CBC and Differential (07/01/2025 4:59 AM EDT) WBC Count 14.93(H) 3.70 - 10.30 10*3/uL LAB HEMATOLOGY METHOD 07/01/2025 5:17 AM EDT [facility] RBC Count 3.42(L) 4.60 - 6.10 10*6/uL LAB HEMATOLOGY METHOD 07/01/2025 5:17 AM EDT [facility] HGB 11.1(L) 13.7 - 17.5 g/dL LAB HEMATOLOGY METHOD 07/01/2025 5:17 AM EDT [facility] HCT 32.6(L) 40.0 - 51.0 % LAB HEMATOLOGY METHOD 07/01/2025 5:17 AM EDT [facility] Platelet Count 112(L) 155 - 369 10*3/uL LAB HEMATOLOGY METHOD 07/01/2025 5:17 AM EDT [facility] MCV 95 79 - 98 fL LAB HEMATOLOGY METHOD 07/01/2025 5:17 AM EDT [facility] MCH 32.5(H) 26.0 - 32.0 pg LAB HEMATOLOGY METHOD 07/01/2025 5:17 AM EDT [facility] MCHC 34.0 30.7 - 35.5 g/dL LAB HEMATOLOGY METHOD 07/01/2025 5:17 AM EDT [facility] RDW 15.8(H) 11.5 - 14.5 % LAB HEMATOLOGY METHOD 07/01/2025 5:17 AM EDT [facility] MPV 11.2 8.8 - 12.5 fL LAB HEMATOLOGY METHOD 07/01/2025 5:17 AM EDT [facility] nRBC 0.1(H) <=0.0 per 100 WBCs LAB HEMATOLOGY METHOD 07/01/2025 5:17 AM EDT [facility] Differential Type Automated LAB HEMATOLOGY METHOD 07/01/2025 5:17 AM EDT [facility] Neutrophils % 54 % LAB HEMATOLOGY METHOD 07/01/2025 5:17 AM EDT [facility] Lymphocytes % 30 % LAB HEMATOLOGY METHOD 07/01/2025 5:17 AM EDT [facility] Monocytes % 9 % LAB HEMATOLOGY METHOD 07/01/2025 5:17 AM EDT [facility] Eosinophils % 5 % LAB HEMATOLOGY METHOD 07/01/2025 5:17 AM EDT [facility] Basophils % 1 % LAB HEMATOLOGY METHOD 07/01/2025 5:17 AM EDT [facility] Immature Granulocytes % 1 % LAB HEMATOLOGY METHOD 07/01/2025 5:17 AM EDT [facility] Neutrophils Absolute 8.14(H) 1.60 - 6.10 10*3/uL LAB HEMATOLOGY METHOD 07/01/2025 5:17 AM EDT [facility] Lymphocytes Absolute 4.47(H) 1.20 - 3.90 10*3/uL LAB HEMATOLOGY METHOD 07/01/2025 5:17 AM EDT [facility] Monocytes Absolute 1.40(H) 0.30 - 0.90 10*3/uL LAB HEMATOLOGY METHOD 07/01/2025 5:17 AM EDT [facility] Eosinophils Absolute 0.74(H) 0.00 - 0.50 10*3/uL LAB HEMATOLOGY METHOD 07/01/2025 5:17 AM EDT [facility] Basophils Absolute 0.08 0.00 - 0.10 10*3/uL LAB HEMATOLOGY METHOD 07/01/2025 5:17 AM EDT [facility] Immature Granulocytes Absolute 0.10(H) 0.00 - 0.06 10*3/uL LAB HEMATOLOGY METHOD 07/01/2025 5:17 AM EDT [facility] Blood Venous blood specimen / Unknown Venipuncture / Unknown 07/01/2025 4:59 AM EDT 07/01/2025 5:06 AM EDT Narrative [facility] - 07/01/2025 5:17 AM EDT Therapeutic decision making should be based on absolute values, rather than percentages. Lizzie Biggs MD LAB BLOOD ORDERABLES Fi nal Result [facility] [address] [place] [address] * (ABNORMAL) Comprehensive Metabolic Panel, Plasma (07/01/2025 4:59 AM EDT) Glucose, Plasma 106(H) 74 - 99 mg/dL 07/01/2025 5:35 AM EDT [facility] BUN, Plasma 28(H) 8 - 23 mg/dL 07/01/2025 5:35 AM EDT [facility] Creatinine, Plasma 1.31(H) 0.70 - 1.20 mg/dL 07/01/2025 5:35 AM EDT [facility] BUN/Creatinine Ratio 21 07/01/2025 5:35 AM EDT [facility] Sodium, Plasma 128(L) 136 - 145 mmol/L 07/01/2025 5:35 AM EDT [facility] Potassium, Plasma 4.2 3.6 - 4.9 mmol/L 07/01/2025 5:35 AM EDT [facility] Chloride, Plasma 98 97 - 107 mmol/L 07/01/2025 5:35 AM EDT [facility] CO2, Plasma 20(L) 22 - 29 mmol/L 07/01/2025 5:35 AM EDT [facility] Anion Gap 10 6 - 16 mmol/L 07/01/2025 5:35 AM EDT [facility] Total Calcium, Plasma 7.5(L) 8.9 - 10.2 mg/dL 07/01/2025 5:35 AM EDT [facility] Total Protein 4.8(L) 6.3 - 7.9 g/dL 07/01/2025 5:35 AM EDT [facility] Albumin, Plasma 2.3(L) 3.5 - 5.2 g/dL 07/01/2025 5:35 AM EDT [facility] AST, Plasma 38 10 - 50 U/L 07/01/2025 5:35 AM EDT [facility] Comment:Hemolyzed, result ma y be falsely increased. ALT, Plasma 31 10 - 50 U/L 07/01/2025 5:35 AM EDT [facility] Alkaline Phosphatase, Plasma 124(H) 40 - 115 U/L 07/01/2025 5:35 AM EDT [facility] Total Bilirubin, Plasma 2.1(H) 0.2 - 1.1 mg/dL 07/01/2025 5:35 AM EDT [facility] eGFRcr 58.6 mL/min/1.7 3m*2 07/01/2025 5:35 AM EDT [facility] Comment:Reported eGFRcr in m L/min/1.73m2 is based the CKD-EPI 2020 equation that does not use a race coefficient. Blood Venous blood specimen / Unknown Venipuncture / Unknown 07/01/2025 4:59 AM EDT 07/01/2025 5:06 AM EDT Lizzie Biggs MD LAB BLOOD ORDERABLES Fi nal Result Performing Organization Address [facility]/ZIP Co de Phone Number [facility] [address] [place] [address] * (ABNORMAL) Magnesium, Plasma (07/01/2025 4:59 AM EDT) Magnesium, Plasma 2.7(H) 1.9 - 2.4 mg/dL 07/01/2025 5:35 AM EDT [facility] Blood Venous blood specimen / Unknown Venipuncture / Unknown 07/01/2025 4:59 AM EDT 07/01/2025 5:06 AM EDT Lizzie Biggs MD LAB BLOOD ORDERABLES Fi nal Result Performing Organization Address City/[facility]/ZIP Co de Phone Number [facility] [address] [place] [address] * Phosphorus, Plasma (07/01/2025 4:59 AM EDT) Phosphorus, Plasma 3.0 2.5 - 4.5 mg/dL 07/01/2025 5:35 AM EDT [facility] Blood Venous blood specimen / Unknown Venipuncture / Unknown 07/01/2025 4:59 AM EDT 07/01/2025 5:06 AM EDT Lizzie Biggs MD LAB BLOOD ORDERABLES Fi nal Result Performing Organization Address City/[facility]/ZIP Co de Phone Number [facility] [address] [place] [address] * Urinalysis Microscopic Examination (06/30/2025 6:20 PM EDT) Urine Urine specimen obtained by clean catch procedure / Unknown Non-blood Collection / Unknown 06/30/2025 6:20 PM EDT 06/30/2025 6:52 PM EDT Lizzie Biggs MD LAB URINE ORDERABLES Fi nal Result Performing Organization Address City/[facility] de Phone Number [facility] [address] [place] [address] * (ABNORMAL) Urinalysis with reflex microscopic (Culture NOT Included) (06/30/2025 6:20 PM EDT) Color, Urine Dark Yellow LAB URINALYSIS - AUTOMATED METHOD 06/30/2025 7:28 PM EDT [facility] Clarity, Urine Cloudy LAB URINALYSIS - AUTOMATED METHOD 06/30/2025 7:28 PM EDT [facility] Spec [place], Urine >1.030(H) 1.005 - 1.030 LAB URINALYSIS - AUTOMATED METHOD 06/30/2025 7:28 PM EDT [facility] pH, Urine 6.0 5.0 - 8.0 LAB URINALYSIS - AUTOMATED METHOD 06/30/2025 7:28 PM EDT [facility] Protein, Urine 30(A) Negative mg/dL LAB URINALYSIS - AUTOMATED METHOD 06/30/2025 7:28 PM EDT [facility] Glucose, Urine Negative Negative mg/dL LAB URINALYSIS - AUTOMATED METHOD 06/30/2025 7:28 PM EDT [facility] Ketones, Urine Trace(A) Negative mg/dL LAB URINALYSIS - AUTOMATED METHOD 06/30/2025 7:28 PM EDT [facility] Blood, Urine Moderate(A) Negative LAB URINALYSIS - AUTOMATED METHOD 06/30/2025 7:28 PM EDT [facility] Bilirubin, Urine Small(A) Negative LAB URINALYSIS - AUTOMATED METHOD 06/30/2025 7:28 PM EDT [facility] Urobilinogen, Urine 1.0 0.2 to 1.0 mg/dL LAB URINALYSIS - AUTOMATED METHOD 06/30/2025 7:28 PM EDT [facility] Leukocytes, Urine Moderate(A) Negative LAB URINALYSIS - AUTOMATED METHOD 06/30/2025 7:28 PM EDT [facility] Nitrite, Urine Negative Negative LAB URINALYSIS - AUTOMATED METHOD 06/30/2025 7:28 PM EDT [facility] RBC, Urine >50(A) 0 to 3 /HPF LAB URINALYSIS - AUTOMATED METHOD 06/30/2025 7:28 PM EDT [facility] WBC, Urine 21 - 50(A) 0 to 5 /HPF LAB URINALYSIS - AUTOMATED METHOD 06/30/2025 7:28 PM EDT [facility] Squamous Epithelial Cells 0 - 2 0 to 5 /HPF LAB URINALYSIS - AUTOMATED METHOD 06/30/2025 7:28 PM EDT [facility] Hyaline Casts 6 - 10(A) 0 to 5 /LPF LAB URINALYSIS - AUTOMATED METHOD 06/30/2025 7:28 PM EDT [facility] Bacteria, Urine Present Negative LAB URINALYSIS - AUTOMATED METHOD 06/30/2025 7:28 PM EDT [facility] Renal Tubular Cells Present Absent 06/30/2025 7:28 PM EDT [facility] Yeast (Budding and/or Pseudohyphae) Present(A) Absent 06/30/2025 7:28 PM EDT [facility] Urine Urine specimen obtained by clean catch procedure / Unknown Non-blood Collection / Unknown 06/30/2025 6:20 PM EDT 06/30/2025 6:52 PM EDT Narrative [facility] - 06/30/2025 7:28 PM EDT Performed by manual method Lizzie Biggs MD LAB URINE ORDERABLES Fi nal Result Performing Organization Address City/[facility]/ZIP Co de Phone Number [facility] [address] [place] [address] * Lactate, venous (06/30/2025 3:11 PM EDT) Lactate, Venous, Whole Blood 1.4 0.5 - 2.2 mmol/L LAB HEMATOLOGY METHOD 06/30/2025 3:25 PM EDT [facility] Blood Venous blood specimen / Unknown Venipuncture / Unknown 06/30/2025 3:11 PM EDT 06/30/2025 3:23 PM EDT Lizzie Biggs MD LAB BLOOD ORDERABLES Fi nal Result Performing Organization Address City/[facility]/ZIP Co de Phone Number [facility] [address] [place] [address] * Phosphorus, Plasma (06/30/2025 3:11 PM EDT) Pathologist [facility] Phosphorus, Plasma 3.0 2.5 - 4.5 mg/dL 06/30/2025 4:40 PM EDT [facility] Blood Venous blood specimen / Unknown Venipuncture / Unknown 06/30/2025 3:11 PM EDT 06/30/2025 3:34 PM EDT Lizzie Biggs MD LAB BLOOD ORDERABLES Fi nal Result Performing Organization Address City/[facility] Co de Phone Number [facility] [address] [place] [address] * (ABNORMAL) CBC and Differential (06/30/2025 3:11 PM EDT) WBC Count 15.42(H) 3.70 - 10.30 10*3/uL LAB HEMATOLOGY METHOD 06/30/2025 7:40 PM EDT [facility] RBC Count 2.92(L) 4.60 - 6.10 10*6/uL LAB HEMATOLOGY METHOD 06/30/2025 7:40 PM EDT [facility] HGB 9.6(L) 13.7 - 17.5 g/dL LAB HEMATOLOGY METHOD 06/30/2025 7:40 PM EDT [facility] HCT 28.0(L) 40.0 - 51.0 % LAB HEMATOLOGY METHOD 06/30/2025 7:40 PM EDT [facility] Platelet Count 100(L) 155 - 369 10*3/uL LAB HEMATOLOGY METHOD 06/30/2025 7:40 PM EDT [facility] MCV 96 79 - 98 fL LAB HEMATOLOGY METHOD 06/30/2025 7:40 PM EDT [facility] MCH 32.9(H) 26.0 - 32.0 pg LAB HEMATOLOGY METHOD 06/30/2025 7:40 PM EDT [facility] MCHC 34.3 30.7 - 35.5 g/dL LAB HEMATOLOGY METHOD 06/30/2025 7:40 PM EDT [facility] RDW 15.9(H) 11.5 - 14.5 % LAB HEMATOLOGY METHOD 06/30/2025 7:40 PM EDT [facility] MPV 12.0 8.8 - 12.5 fL LAB HEMATOLOGY METHOD 06/30/2025 7:40 PM EDT [facility] nRBC 0.5(H) <=0.0 per 100 WBCs LAB HEMATOLOGY METHOD 06/30/2025 7:40 PM EDT [facility] Differential Type Automated LAB HEMATOLOGY METHOD 06/30/2025 7:40 PM EDT [facility] Neutrophils % 51 % LAB HEMATOLOGY METHOD 06/30/2025 7:40 PM EDT [facility] Lymphocytes % 34 % LAB HEMATOLOGY METHOD 06/30/2025 7:40 PM EDT [facility] Monocytes % 9 % LAB HEMATOLOGY METHOD 06/30/2025 7:40 PM EDT [facility] Eosinophils % 4 % LAB HEMATOLOGY METHOD 06/30/2025 7:40 PM EDT [facility] Basophils % 1 % LAB HEMATOLOGY METHOD 06/30/2025 7:40 PM EDT [facility] Immature Granulocytes % 1 % LAB HEMATOLOGY METHOD 06/30/2025 7:40 PM EDT [facility] Neutrophils Absolute 8.05(H) 1.60 - 6.10 10*3/uL LAB HEMATOLOGY METHOD 06/30/2025 7:40 PM EDT [facility] Lymphocytes Absolute 5.22(H) 1.20 - 3.90 10*3/uL LAB HEMATOLOGY METHOD 06/30/2025 7:40 PM EDT [facility] Monocytes Absolute 1.32(H) 0.30 - 0.90 10*3/uL LAB HEMATOLOGY METHOD 06/30/2025 7:40 PM EDT [facility] Eosinophils Absolute 0.68(H) 0.00 - 0.50 10*3/uL LAB HEMATOLOGY METHOD 06/30/2025 7:40 PM EDT [facility] Basophils Absolute 0.07 0.00 - 0.10 10*3/uL LAB HEMATOLOGY METHOD 06/30/2025 7:40 PM EDT [facility] Immature Granulocytes Absolute 0.08(H) 0.00 - 0.06 10*3/uL LAB HEMATOLOGY METHOD 06/30/2025 7:40 PM EDT [facility] Blood Venous blood specimen / Unknown Venipuncture / Unknown 06/30/2025 3:11 PM EDT 06/30/2025 3:37 PM EDT Narrative [facility] - 06/30/2025 7:40 PM EDT Therapeutic decision making should be based on absolute values, rather than percentages. Lizzie Biggs MD LAB BLOOD ORDERABLES Fi nal Result [facility] [address] [place] [address] * (ABNORMAL) Basic Metabolic Panel, Plasma (06/30/2025 3:11 PM EDT) Glucose, Plasma 101(H) 74 - 99 mg/dL 06/30/2025 4:40 PM EDT [facility] BUN, Plasma 25(H) 8 - 23 mg/dL 06/30/2025 4:40 PM EDT [facility] Creatinine, Plasma 1.08 0.70 - 1.20 mg/dL 06/30/2025 4:40 PM EDT [facility] BUN/Creatinine Ratio 23 06/30/2025 4:40 PM EDT [facility] Sodium, Plasma 130(L) 136 - 145 mmol/L 06/30/2025 4:40 PM EDT [facility] Potassium, Plasma 3.2(L) 3.6 - 4.9 mmol/L 06/30/2025 4:40 PM EDT [facility] Chloride, Plasma 111(H) 97 - 107 mmol/L 06/30/2025 4:40 PM EDT [facility] CO2, Plasma 18(L) 22 - 29 mmol/L 06/30/2025 4:40 PM EDT [facility] Anion Gap 1(L) 6 - 16 mmol/L 06/30/2025 4:40 PM EDT [facility] Total Calcium, Plasma 6.3(L) 8.9 - 10.2 mg/dL 06/30/2025 4:40 PM EDT [facility] eGFRcr 73.8 mL/min/1.7 3m*2 06/30/2025 4:40 PM EDT [facility] Comment:Reported eGFRcr in m L/min/1.73m2 is based the CKD-EPI 2020 equation that does not use a race coefficient. Blood Venous blood specimen / Unknown Venipuncture / Unknown 06/30/2025 3:11 PM EDT 06/30/2025 3:34 PM EDT Lizzie Biggs MD LAB BLOOD ORDERABLES Fi nal Result [facility] [address] [place] [address] * (ABNORMAL) Magnesium, Plasma (06/30/2025 3:11 PM EDT) Magnesium, Plasma 1.7(L) 1.9 - 2.4 mg/dL 06/30/2025 4:40 PM EDT [facility] Blood Venous blood specimen / Unknown Venipuncture / Unknown 06/30/2025 3:11 PM EDT 06/30/2025 3:34 PM EDT Lizzie Biggs MD LAB BLOOD ORDERABLES Fi nal Result Performing Organization Address [facility]/ZIP Co de Phone Number [facility] [address] [place] [address] * Vancomycin, random (06/30/2025 12:48 PM EDT) Vancomycin, Random, Plasma 13.3 ug/mL 06/30/2025 3:07 PM EDT [facility] Blood Venous blood specimen / Unknown Venipuncture / Unknown 06/30/2025 12:48 PM EDT 06/30/2025 12:58 PM EDT Jennifer Mcgrath MD LAB BLOOD ORDERABLES Final Resu lt Performing Organization Address [facility] Co de Phone Number [facility] [address] [place] [address] * (ABNORMAL) Cystatin C (06/30/2025 6:01 AM EDT) Cystatin C 1.58(H) 0.61 - 0.95 mg/L 06/30/2025 6:40 AM EDT [facility] Blood Venous blood specimen / Unknown Venipuncture / Unknown 06/30/2025 6:01 AM EDT 06/30/2025 6:10 AM EDT Lizzie Biggs MD LAB BLOOD ORDERABLES Fi nal Result Performing Organization Address City/[facility]/ZIP Co de Phone Number [facility] [address] [place] [address] * (ABNORMAL) Ammonia, Plasma (06/30/2025 6:01 AM EDT) Ammonia 64(H) 11 - 51 umol/L 06/30/2025 6:38 AM EDT [facility] Comment:Improper specimen marquez ndling may falsely increase results. Blood Venous blood specimen / Unknown Venipuncture / Unknown 06/30/2025 6:01 AM EDT 06/30/2025 6:08 AM EDT us Homeroheather Gutierrez APRN, LUDMILA LAB BLOOD ORDERAB LES Final Result Performing Organization Address City/[facility]/[place] [address] * Sedimentation Rate, Automated (06/30/2025 6:01 AM EDT) Sedimentation Rate 17 <20 mm/hr 2024 6:18 AM EDT [facility] Blood Venous blood specimen / Unknown Venipuncture / Unknown 06/30/2025 6:01 AM EDT 06/30/2025 6:11 AM EDT us Homeroheather Gutierrez APRN, DNP LAB BLOOD ORDERAB LES Final Result Performing Organization Address [facility] [place] [address] * Vancomycin, random (06/29/2025 6:05 PM EDT) Vancomycin, Random, Plasma 15.4 ug/mL 06/29/2025 6:42 PM EDT [facility] Blood Venous blood specimen / Unknown Venipuncture / Unknown 06/29/2025 6:05 PM EDT 06/29/2025 6:15 PM EDT us Lizzie Biggs MD LAB BLOOD ORDERABLES Fi nal Result Performing Organization Address [facility]/[place] [address] * US Abdomen Focused Region Liver, Pancreas, Bile Ducts (06/29/2025 3:37 PM EDT) Anatomical Region Laterality Modality Abdomen Ultrasound Impressions 06/29/2025 3:58 PM EDT Coarsened hepatic echotexture consistent with chronic parenchymal disease. Absent gallbladder. CRITICAL RESULT: No. COMMUNICATION: Per this written report. Drafted by Darlene Mejia MD on 06/29/2025 3:54 PM Final report signed by Darlene Mejia MD on 06/29/2025 3:58 PM Narrative 06/29/2025 3:58 PM EDT CLINICAL INDICATION: upper abd pain, TECHNIQUE: Focused static and cine grayscale ultrasound images of portions of the abdomen were obtained COMPARISON: None. FINDINGS: Hepatic parenchyma is coarse in echotexture. The gallbladder is absent: The common bile duct is not visualized.. Other: N/A Procedure Note Darlene Mejia MD - 06/29/2025 CLINICAL INDICATION: upper abd pain, TECHNIQUE: Focused static and cine grayscale ultrasound images of portions of theabdomen were obtained COMPARISON: None. FINDINGS: Hepatic parenchyma is coarse in echotexture. The gallbladder is absent:The common bile duct is not visualized.. Other: N/A IMPRESSION: Coarsened hepatic echotexture consistent with chronic parenchymal disease.Absent gallbladder. CRITICAL RESULT: No. COMMUNICATION: Per this written report. Drafted by Darlene Mejia MD on 06/29/2025 3:54 PM Final report signed by Darlene Mejia MD on 06/29/2025 3:58 PM Lizzie Biggs MD [facility] US PROCEDURES Final Result * Creatinine, urine, random (06/29/2025 12:10 PM EDT) Creatinine, Urine 182 mg/dL 06/29/2025 1:10 PM EDT [facility] Urine Urine specimen obtained by clean catch procedure / Unknown Non-blood Collection / Unknown 06/29/2025 12:10 PM EDT 06/29/2025 12:37 PM EDT us Homero Gutierrez APRN, LUDMILA LAB URINE ORDERAB LES Final Result [facility] [address] [place] [address] * Urea nitrogen, urine (06/29/2025 12:10 PM EDT) Urea Nitrogen, Urine 865 mg/dL 06/29/2025 1:10 PM EDT [facility] Urine Urine specimen obtained by clean catch procedure / Unknown Non-blood Collection / Unknown 06/29/2025 12:10 PM EDT 06/29/2025 12:37 PM EDT Homero Gutierrez APRN, DNP LAB URINE ORDERAB LES Final Result Performing Organization Address [facility] Co de Phone Number [facility] [address] [place] [address] * Methicillin Resistant Staphylococcus aureus (MRSA) by PCR (06/29/2025 9:39 AM EDT) Pathologist [facility] Methicillin Resistant Staphylococcus aureus (MRSA) by PCR Not Detected Not Detected 06/29/2025 12:04 PM EDT [facility] Swab Both anterior nares / Unknown Non-blood Collection / Unknown 06/29/2025 9:39 AM EDT 06/29/2025 10:18 AM EDT Narrative [facility] - 06/29/2025 12:04 PM EDT This test is FDA approved for use with nares swab specimens using the eSwabs. This test is used for clinical purposes. It should not be regarded as investigational or for research. This laboratory is certified under the Clinical Laboratory improvement Amendments of 1988 (CLIA-88 as qualified to perform high complexity clinical laboratory testing. Homero Gutierrez APRN, DNP LAB MICROBIOLOGY - GENERAL ORDERABLES Final Result Performing Organization Address [facility] de Phone Number [facility] [address] [place] [address] * (ABNORMAL) Wound Culture and Gram Stain (06/29/2025 9:39 AM EDT) Pathologist [facility] CULTURE READING WOUND Light Growth 07/02/2025 12:29 PM EDT [facility] CULTURE READING WOUND Staphylococcus epidermidis(A) 07/02/2025 12:29 PM EDT [facility] Comment: This isolate has been identified using the FDA Approved [email or web address] [place] System The organism value for this result has been updated. These results have been appended to the previously preliminary verified report. Edited result: Previously reported as Gram positive cocci on 07/01/2025 at 0744 EDT. Gram Stain Result Numerous Polymorphonuclear leukocytes(A) 07/02/2025 12:29 PM EDT [facility] Gram Stain Result Rare Gram negative rods(A) 07/02/2025 12:29 PM EDT [facility] Swab Skin structure / Unknown Non-blood Collection / Unknown 06/29/2025 9:39 AM EDT 06/29/2025 2:57 PM EDT us Homero N Matt HIRSCH, DNP LAB MICROBIOLOGY - GENERAL ORDERABLES Final Result Performing Organization Address [facility] Co de Phone Number [facility] [address] [place] [address] * Multi Drug Resistance Test (06/29/2025 9:39 AM EDT) Culture No growth at day 1 06/30/2025 4:16 PM EDT [facility] Swab (Nares and Cari Rectal) Non-blood Collection / Unknown 06/29/2025 9:39 AM EDT 06/29/2025 10:19 AM EDT Narrative [facility] - 06/30/2025 4:16 PM EDT This test was developed and its performance characteristics determined by the [facility]. Although the media is FDA-approved, it is not FDA-approved for all specimen types submitted. The FDA has determined that such clearance or approval is not necessary. This test is used for surveillance purposes. It should not be regarded as investigational or for research. The [facility] is certified under the Clinical Laboratory Improvement Amendments of 1988 (CLIA-88) as qualified to perform high complexity clinical laboratory testing. us Homero N Matt ASSOCIATE PROFESSOR OF ARCHAEOLOGY, DNP LAB MICROBIOLOGY - GENERAL ORDERABLES Final Result Performing Organization Address City/[facility]/ZIP Co de Phone Number [facility] [address] [place] [address] * (ABNORMAL) GGT (06/29/2025 6:52 AM EDT) GGT, Plasma 116(H) 8 - 61 U/L 06/29/2025 8:35 AM EDT [facility] Blood Venous blood specimen / Unknown Venipuncture / Unknown 06/29/2025 6:52 AM EDT 06/29/2025 6:56 AM EDT us Homero Moiz Gutierrez ASSOCIATE PROFESSOR OF ARCHAEOLOGY, [facility] LAB BLOOD ORDERAB LES Final Result [facility] [address] [place] [address] * (ABNORMAL) Ionized calcium, whole blood (06/29/2025 6:52 AM EDT) Ionized Calcium, Whole Blood 4.1(L) 4.6 - 5.1 mg/dL LAB HEMATOLOGY METHOD 06/29/2025 7:12 AM EDT [facility] Blood Venous blood specimen / Unknown Venipuncture / Unknown 06/29/2025 6:52 AM EDT 06/29/2025 6:55 AM EDT us Homeroheather Gutierrez APRN, [facility] BLOOD ORDERAB LES Final Result [address] [address] * (ABNORMAL) Procalcitonin (06/29/2025 6:52 AM EDT) Procalcitonin, Plasma 2.47(H) <0.09 ng/mL 06/29/2025 7:27 AM EDT [facility] Blood Venous blood specimen / Unknown Venipuncture / Unknown 06/29/2025 6:52 AM EDT 06/29/2025 6:56 AM EDT Narrative [facility] - 06/29/2025 7:27 AM EDT Procalcitonin concentrations in healthy individuals [...] predict 28 day mortality risk. Please consult [email or web address] for more information. Test performed at [facility]. us Homero Gutierrez APRN, DNP LAB BLOOD ORDERAB LES Final Result Performing Organization Address [facility] Co de Phone Number [facility] [address] [place] [address] * (ABNORMAL) Cystatin C (06/29/2025 6:52 AM EDT) Cystatin C 1.5(H) 0.61 - 0.95 mg/L 06/29/2025 8:35 AM EDT [facility] Blood Venous blood specimen / Unknown Venipuncture / Unknown 06/29/2025 6:52 AM EDT 06/29/2025 6:56 AM EDT us Homero Gutierrez APRN, DNP LAB BLOOD ORDERAB LES Final Result Performing Organization Address [facility] Co de Phone Number [facility] [address] [place] [address] * (ABNORMAL) Basic metabolic panel (06/29/2025 6:52 AM EDT) Glucose, Plasma 116(H) 74 - 99 mg/dL 06/29/2025 7:27 AM EDT [facility] BUN, Plasma 24(H) 8 - 23 mg/dL 06/29/2025 7:27 AM EDT [facility] Creatinine, Plasma 1.39(H) 0.70 - 1.20 mg/dL 06/29/2025 7:27 AM EDT [facility] BUN/Creatinine Ratio 17 06/29/2025 7:27 AM EDT [facility] Sodium, Plasma 131(L) 136 - 145 mmol/L 06/29/2025 7:27 AM EDT [facility] Potassium, Plasma 3.8 3.6 - 4.9 mmol/L 06/29/2025 7:27 AM EDT [facility] Chloride, Plasma 99 97 - 107 mmol/L 06/29/2025 7:27 AM EDT [facility] CO2, Plasma 22 22 - 29 mmol/L 06/29/2025 7:27 AM EDT [facility] Anion Gap 10 6 - 16 mmol/L 06/29/2025 7:27 AM EDT [facility] Total Calcium, Plasma 7.6(L) 8.9 - 10.2 mg/dL 06/29/2025 7:27 AM EDT [facility] eGFRcr 54.5 mL/min/1.7 3m*2 06/29/2025 7:27 AM EDT [facility] Comment:Reported eGFRcr in m L/min/1.73m2 is based the CKD-EPI 2020 equation that does not use a race coefficient. Blood Venous blood specimen / Unknown Venipuncture / Unknown 06/29/2025 6:52 AM EDT 06/29/2025 6:56 AM EDT us Homerocrow Gutierrez APRN, [facility] LAB BLOOD ORDERAB LES Final Result [facility] [address] [place] [address] * Lactate, venous (06/29/2025 6:52 AM EDT) Lactate, Venous, Whole Blood 1.5 0.5 - 2.2 mmol/L LAB HEMATOLOGY METHOD 06/29/2025 6:56 AM EDT [facility] Blood Venous blood specimen / Unknown Venipuncture / Unknown 06/29/2025 6:52 AM EDT 06/29/2025 6:55 AM EDT us Homero Gutierrez APRN, DNP LAB BLOOD ORDERAB LES Final Result Performing Organization Address [facility] [place] [address] * SEND SELIN MESSAGE (06/29/2025 2:00 AM EDT) Urine Urine specimen obtained by clean catch procedure / Unknown Non-blood Collection / Unknown 06/29/2025 2:00 AM EDT 06/29/2025 2:22 AM EDT us Rg Coleman MD LAB URINE ORDERABLES Final Res ult Performing Organization Address [facility] [place] [address] * (ABNORMAL) Urine Culture (06/29/2025 2:00 AM EDT) Culture 10,000 - 100,000 CFU/mL Diutina rugosa (formerly Celestina rugosa)(A) 07/02/2025 8:16 AM EDT [facility] Comment:This result was dete rmined by [employer]DI tof mass spectrometry using the Cyan database and is for research use only. Urine Urine specimen obtained by clean catch procedure / Unknown Non-blood Collection / Unknown 06/29/2025 2:00 AM EDT 06/29/2025 2:22 AM EDT Rg Coleman MD LAB MICROBIOLOGY - GENERAL ORD ERABLES Final Result Performing Organization Address [facility] de Phone Number [facility] [address] [place] [address] * Urinalysis Microscopic Examination (06/29/2025 2:00 AM EDT) Urine Urine specimen obtained by clean catch procedure / Unknown Non-blood Collection / Unknown 06/29/2025 2:00 AM EDT 06/29/2025 2:04 AM EDT us Rg Coleman MD LAB URINE ORDERABLES Final Res ult Performing Organization Address City/[facility] Co de Phone Number [facility] [address] [place] [address] [place] [address] * Urine Salcedo Panel (06/29/2025 2:00 AM EDT) Extra Sent for Culture 06/29/2025 4:01 AM EDT [facility] Urine Urine specimen obtained by clean catch procedure / Unknown Non-blood Collection / Unknown 06/29/2025 2:00 AM EDT 06/29/2025 2:22 AM EDT us Rg Coleman MD LAB URINE ORDERABLES Final Res ult [facility] [address] [place] [address] * (ABNORMAL) Urinalysis with reflex microscopic (Culture NOT Included) (06/29/2025 2:00 AM EDT) Color, Urine [place] LAB URINALYSIS - AUTOMATED METHOD 06/29/2025 3:11 AM EDT [facility] Clarity, Urine Cloudy LAB URINALYSIS - AUTOMATED METHOD 06/29/2025 3:11 AM EDT [facility] Spec [place], Urine 1.030 1.005 - 1.030 LAB URINALYSIS - AUTOMATED METHOD 06/29/2025 3:11 AM EDT [facility] pH, Urine 5.5 5.0 - 8.0 LAB URINALYSIS - AUTOMATED METHOD 06/29/2025 3:11 AM EDT [facility] Protein, Urine Trace(A) Negative mg/dL LAB URINALYSIS - AUTOMATED METHOD 06/29/2025 3:11 AM EDT [facility] Glucose, Urine Negative Negative mg/dL LAB URINALYSIS - AUTOMATED METHOD 06/29/2025 3:11 AM EDT [facility] Ketones, Urine Trace(A) Negative mg/dL LAB URINALYSIS - AUTOMATED METHOD 06/29/2025 3:11 AM EDT [facility] Blood, Urine Large(A) Negative LAB URINALYSIS - AUTOMATED METHOD 06/29/2025 3:11 AM EDT [facility] Bilirubin, Urine Small(A) Negative LAB URINALYSIS - AUTOMATED METHOD 06/29/2025 3:11 AM EDT [facility] Urobilinogen, Urine 1.0 0.2 to 1.0 mg/dL LAB URINALYSIS - AUTOMATED METHOD 06/29/2025 3:11 AM EDT [facility] Leukocytes, Urine Small(A) Negative LAB URINALYSIS - AUTOMATED METHOD 06/29/2025 3:11 AM EDT [facility] Nitrite, Urine Negative Negative LAB URINALYSIS - AUTOMATED METHOD 06/29/2025 3:11 AM EDT [facility] RBC, Urine >50(A) 0 to 3 /HPF LAB URINALYSIS - AUTOMATED METHOD 06/29/2025 3:11 AM EDT [facility] Comment:This result was prev iously suppressed from the chart. WBC, Urine 11 - 20(A) 0 to 5 /HPF LAB URINALYSIS - AUTOMATED METHOD 06/29/2025 3:11 AM EDT [facility] Comment:This result was prev iously suppressed from the chart. Squamous Epithelial Cells 0 - 2 0 to 5 /HPF LAB URINALYSIS - AUTOMATED METHOD 06/29/2025 3:11 AM EDT [facility] Comment:This result was prev iously suppressed from the chart. Hyaline Casts >20(A) 0 to 5 /LPF LAB URINALYSIS - AUTOMATED METHOD 06/29/2025 3:11 AM EDT [facility] Comment:This result was prev iously suppressed from the chart. Bacteria, Urine Negative Negative LAB URINALYSIS - AUTOMATED METHOD 06/29/2025 3:11 AM EDT [facility] Comment:This result was prev iously suppressed from the chart. Yeast (Budding and/or Pseudohyphae) Present(A) Absent 06/29/2025 3:11 AM EDT [facility] Comment:This result was prev iously suppressed from the chart. Urine Urine specimen obtained by clean catch procedure / Unknown Non-blood Collection / Unknown 06/29/2025 2:00 AM EDT 06/29/2025 2:04 AM EDT Narrative [facility] - 06/29/2025 3:11 AM EDT Urinalysis dipstick results may be inaccurate due to specimen color or an interfering substance in the specimen.Test performed by manual method Rg Coleman MD LAB URINE ORDERABLES Final Res ult Performing Organization Address [facility] Co de Phone Number [facility] [address] [place] [address] * (ABNORMAL) Troponin T, High Sensitivity, 2 Hour, Plasma (06/28/2025 11:57 PM EDT) Troponin T, High Sensitivity, 2 Hour 22(H) <19 ng/L 06/29/2025 12:22 AM EDT [facility] Troponin Delta 2 <10 ng/L 06/29/2025 12:22 AM EDT [facility] Troponin Delta Interpretation Not Significant 06/29/2025 12:22 AM EDT [facility] Comment:Not Significant. No acute change in troponin observed between the baseline and 2 hour samples. Blood Venous blood specimen / Unknown Venipuncture / Unknown 06/28/2025 11:57 PM EDT 06/29/2025 12:03 AM EDT Rg Coleman MD LAB BLOOD ORDERABLES Final Res ult Performing Organization Address [facility] Co de Phone Number [facility] [address] [place] [address] * CT Angio Abdomen Pelvis (06/28/2025 11:11 PM EDT) Anatomical Region Laterality Modality Abdomen, Pelvis Computed Tomogra phy Impressions 06/28/2025 11:53 PM EDT 1. No acute findings regarding the intrathoracic or intra-abdominal aorta. Visceral and pelvic arteries are patent. 2. No consolidation appreciated within the lungs. 3. Similar cirrhotic morphology of liver, and splenomegaly, and small volume ascites, mildly increased in the interval. Other stigmata of portal hypertension as described above, to include prominent collateral and coronary veins in the gastrohepatic ligament, and paraesophageal varices. 4. Interval removal of Monroe catheter, with retained 10 mm bladder calculus. There appears be some perivesical fat haziness, and wall thickening urinary bladder, which may be secondary to underdistention, however recommend correlation with urinalysis, or symptoms of UTI. Small amount of gas within the nondependent lumen may be residua of recent Monroe catheterization. 5. No free intra-abdominal gas, tiny foci of gas within the space of Retzius. 6. No acute intraluminal contrast extravasation appreciated within the stomach, small bowel, or colon during the examination. 7. Submucosal edema of the cecum and of the ascending colon, most likely portal colopathy, however correlate for any symptoms of a colitis. 8. Stable position of 6 mm nonobstructing proximal ureteral calculus at the level of L3/4. 9. Peripancreatic fat haziness, which is most likely secondary to portal hypertension, however correlate for any elevation in serum lipase. 10. Scrotal edema, and subcutaneous edema at the base of the penis, no soft tissue emphysema in the scrotum, or perineum. CRITICAL RESULT: No. COMMUNICATION: Per this written report. Drafted by Jayme Amaya MD on 06/28/2025 11:21 PM Final report signed by Jayme Amaya MD on 06/28/2025 11:53 PM Narrative 06/28/2025 11:53 PM EDT CLINICAL INDICATION: recent prostatectomy c/b hemmorhagic shock, now with hypotension and hypoxia TECHNIQUE: Imaging of the chest abdomen and pelvis was performed, from thoracic inlet through pubic symphysis, using spiral technique, following administration of IV contrast, Omnipaque 350, 100 mL according to the CTA thoracic aorta/chest and CTA Abdomen/Pelvis protocol. Reformatted images in the coronal, sagittal, and oblique planes were generated from the axial data set to facilitate diagnostic accuracy. In addition, 3D images were created and reviewed. Total DLP (Dose-Length Product): 2949.46 mGy.cm (accession [id number]), 2949.46 mGy.cm (accession [id number]). Please note: The reported value represents the total of one or more individual components during the CT acquisition on this date and at this time, and as such, the same value may appear in more than one CT report depending on the interpreting/reporting physicians. COMPARISON: 06/22/2025 FINDINGS: Chest: No mural hematoma within the thoracic aorta on the noncontrast portion of the examination. The arch vessels are patent. Mild calcific disease of the thoracic aorta, which appears without acute abnormality. Cardiac size is within normal limits. No pericardial effusion. No filling defects within the central, perihilar, or proximal segmental pulmonary arteries. Posterior dependent atelectasis of lungs. Elevation of the right hemidiaphragm, with associated subpleural atelectasis of the abutting basilar right lower lobe. No pleural effusions. No concerning mediastinal adenopathy by size criteria. No acute chest wall findings. No aggressive osseous lesions or interval changes. Abdomen/pelvis: Mild calcific aortoiliac atherosclerotic disease, the abdominal aorta is without acute finding, the visceral and the pelvic arteries are patent. Small volume nonhemorrhagic appearing abdominal and pelvic ascites. No free abdominal gas. Small foci of gas within the space of Retzius. Similar cirrhotic morphology of liver, without appreciable parenchymal mass. Splenomegaly, as on the previous examination, axially measuring up to 19 cm, no acute parenchymal findings. No adrenal masses. Similar atrophic changes of the pancreas, without ductal dilation. Peripancreatic fat haziness. No hydronephrosis of the kidneys. Similar nonobstructing 6 mm calculus proximal right ureter at the level of L3/4. The stomach is not distended. There is no evidence of a small bowel obstruction. There is no significant distention of the colon. There appears to be some submucosal edema of the cecum and the ascending colon. The appendix is nondistended. Mild mesenteric edema, which may obscure subtle inflammation. No acute contrast extravasation is appreciated within the lumens of the stomach, small bowel, or the colon during the examination. Interval removal of Monroe catheter. Small amount of gas in the nondependent urinary bladder lumen, the urinary bladder does not appear to be significantly distended. Retained 10 mm bladder calculus. Bladder wall is thickened, and there is some mild perivesical fat haziness. No concerning pelvic or retroperitoneal adenopathy by size criteria. Recanalized umbilical vein to the left portal, one of the branches thereof appears thrombosed, similar to the previous examination. The portal vein, SMV, and splenic vein remain patent. Prominent collateral and coronary veins in the gastrohepatic ligament, and paraesophageal varices. Interval removal of Héctor-Yung drain from the abdomen. Scrotal edema, and subcutaneous edema at the base of the penis. No organized subcutaneous collections. No aggressive osseous lesions or interval changes. Procedure Note Jayme Amaya MD - 06/28/2025 CLINICAL INDICATION: recent prostatectomy c/b hemmorhagic shock, now with hypotension andhypoxia TECHNIQUE: Imaging of the chest abdomen and pelvis was performed, from thoracic inletthrough pubic symphysis, using spiral technique, following administrationof IV contrast, Omnipaque 350, 100 mL according to the CTA thoracicaorta/chest and CTA Abdomen/Pelvis protocol. Reformatted images in thecoronal, sagittal, and oblique planes were generated from the axial dataset to facilitate diagnostic accuracy. In addition, 3D images were createdand reviewed. Total DLP (Dose-Length Product): 2949.46 mGy.cm (accession [id number]),2949.46 mGy.cm (accession [id number]). Please note: The reported valuerepresents the total of one or more individual components during the CTacquisition on this date and at this time, and as such, the same value mayappear in more than one CT report depending on the interpreting/reportingphysicians. COMPARISON: 06/22/2025 FINDINGS: Chest: No mural hematoma within the thoracic aorta on the noncontrast portion ofthe examination. The arch vessels are patent. Mild calcific disease of the thoracic aorta,which appears without acute abnormality. Cardiac size is within normallimits. No pericardial effusion. No filling defects within the central,perihilar, or proximal segmental pulmonary arteries. Posterior dependent atelectasis of lungs. Elevation of the righthemidiaphragm, with associated subpleural atelectasis of the abuttingbasilar right lower lobe. No pleural effusions. No concerning mediastinal adenopathy by size criteria. No acute chest wall findings. No aggressive osseous lesions or interval changes. Abdomen/pelvis: Mild calcific aortoiliac atherosclerotic disease, the abdominal aorta iswithout acute finding, the visceral and the pelvic arteries are patent. Small volume nonhemorrhagic appearing abdominal and pelvic ascites. No free abdominal gas. Small foci of gas within the space of Retzius. Similar cirrhotic morphology of liver, without appreciable parenchymalmass. Splenomegaly, as on the previous examination, axially measuring upto 19 cm, no acute parenchymal findings. No adrenal masses. Similaratrophic changes of the pancreas, without ductal dilation. Peripancreaticfat haziness. No hydronephrosis of the kidneys. Similar nonobstructing 6 mm calculusproximal right ureter at the level of L3/4. The stomach is not distended. There is no evidence of a small bowelobstruction. There is no significant distention of the colon. Thereappears to be some submucosal edema of the cecum and the ascending colon.The appendix is nondistended. Mild mesenteric edema, which may obscuresubtle inflammation. No acute contrast extravasation is appreciated within the lumens of thestomach, small bowel, or the colon during the examination. Interval removal of Monroe catheter. Small amount of gas in thenondependent urinary bladder lumen, the urinary bladder does not appear allen significantly distended. Retained 10 mm bladder calculus. Bladder isaias thickened, and there is some mild perivesical fat haziness. No concerning pelvic or retroperitoneal adenopathy by size criteria. Recanalized umbilical vein to the left portal, one of the branches thereofappears thrombosed, similar to the previous examination. The portal vein,SMV, and splenic vein remain patent. Prominent collateral and coronaryveins in the gastrohepatic ligament, and paraesophageal varices. Interval removal of Héctor-Yung drain from the abdomen. Scrotal edema,and subcutaneous edema at the base of the penis. No organized subcutaneouscollections. No aggressive osseous lesions or interval changes. IMPRESSION: 1. No acute findings regarding the intrathoracic or intra-abdominal aorta.Visceral and pelvic arteries are patent. 2. No consolidation appreciated within the lungs. 3. Similar cirrhotic morphology of liver, and splenomegaly, and smallvolume ascites, mildly increased in the interval. Other stigmata of portalhypertension as described above, to include prominent collateral andcoronary veins in the gastrohepatic ligament, and paraesophagealvarices. 4. Interval removal of Monroe catheter, with retained 10 mm bladdercalculus. There appears be some perivesical fat haziness, and wallthickening urinary bladder, which may be secondary to underdistention,however recommend correlation with urinalysis, or symptoms of UTI. Smallamount of gas within the nondependent lumen may be residua of recent Foleycatheterization. 5. No free intra-abdominal gas, tiny foci of gas within the space ofRetzius. 6. No acute intraluminal contrast extravasation appreciated within thestomach, small bowel, or colon during the examination. 7. Submucosal edema of the cecum and of the ascending colon, most likelyportal colopathy, however correlate for any symptoms of a colitis. 8. Stable position of 6 mm nonobstructing proximal ureteral calculus atthe level of L3/4. 9. Peripancreatic fat haziness, which is most likely secondary to portalhypertension, however correlate for any elevation in serum lipase. 10. Scrotal edema, and subcutaneous edema at the base of the penis, nosoft tissue emphysema in the scrotum, or perineum. CRITICAL RESULT: No. COMMUNICATION: Per this written report. Drafted by Jayme Amaya MD on 06/28/2025 11:21 PM Final report signed by Jayme Amaya MD on 06/28/2025 11:53 PM us Rg Coleman MD IMG CT PROCEDURES Final Result * CT Angio Chest (06/28/2025 11:11 PM EDT) Anatomical Region Laterality Modality Chest Computed Tomogra phy Impressions 06/28/2025 11:53 PM EDT 1. No acute findings regarding the intrathoracic or intra-abdominal aorta. Visceral and pelvic arteries are patent. 2. No consolidation appreciated within the lungs. 3. Similar cirrhotic morphology of liver, and splenomegaly, and small volume ascites, mildly increased in the interval. Other stigmata of portal hypertension as described above, to include prominent collateral and coronary veins in the gastrohepatic ligament, and paraesophageal varices. 4. Interval removal of Monroe catheter, with retained 10 mm bladder calculus. There appears be some perivesical fat haziness, and wall thickening urinary bladder, which may be secondary to underdistention, however recommend correlation with urinalysis, or symptoms of UTI. Small amount of gas within the nondependent lumen may be residua of recent Monroe catheterization. 5. No free intra-abdominal gas, tiny foci of gas within the space of Retzius. 6. No acute intraluminal contrast extravasation appreciated within the stomach, small bowel, or colon during the examination. 7. Submucosal edema of the cecum and of the ascending colon, most likely portal colopathy, however correlate for any symptoms of a colitis. 8. Stable position of 6 mm nonobstructing proximal ureteral calculus at the level of L3/4. 9. Peripancreatic fat haziness, which is most likely secondary to portal hypertension, however correlate for any elevation in serum lipase. 10. Scrotal edema, and subcutaneous edema at the base of the penis, no soft tissue emphysema in the scrotum, or perineum. CRITICAL RESULT: No. COMMUNICATION: Per this written report. Drafted by Jayme Amaya MD on 06/28/2025 11:21 PM Final report signed by Jayme Amaya MD on 06/28/2025 11:53 PM Narrative 06/28/2025 11:53 PM EDT CLINICAL INDICATION: recent prostatectomy c/b hemmorhagic shock, now with hypotension and hypoxia TECHNIQUE: Imaging of the chest abdomen and pelvis was performed, from thoracic inlet through pubic symphysis, using spiral technique, following administration of IV contrast, Omnipaque 350, 100 mL according to the CTA thoracic aorta/chest and CTA Abdomen/Pelvis protocol. Reformatted images in the coronal, sagittal, and oblique planes were generated from the axial data set to facilitate diagnostic accuracy. In addition, 3D images were created and reviewed. Total DLP (Dose-Length Product): 2949.46 mGy.cm (accession [id number]), 2949.46 mGy.cm (accession [id number]). Please note: The reported value represents the total of one or more individual components during the CT acquisition on this date and at this time, and as such, the same value may appear in more than one CT report depending on the interpreting/reporting physicians. COMPARISON: 06/22/2025 FINDINGS: Chest: No mural hematoma within the thoracic aorta on the noncontrast portion of the examination. The arch vessels are patent. Mild calcific disease of the thoracic aorta, which appears without acute abnormality. Cardiac size is within normal limits. No pericardial effusion. No filling defects within the central, perihilar, or proximal segmental pulmonary arteries. Posterior dependent atelectasis of lungs. Elevation of the right hemidiaphragm, with associated subpleural atelectasis of the abutting basilar right lower lobe. No pleural effusions. No concerning mediastinal adenopathy by size criteria. No acute chest wall findings. No aggressive osseous lesions or interval changes. Abdomen/pelvis: Mild calcific aortoiliac atherosclerotic disease, the abdominal aorta is without acute finding, the visceral and the pelvic arteries are patent. Small volume nonhemorrhagic appearing abdominal and pelvic ascites. No free abdominal gas. Small foci of gas within the space of Retzius. Similar cirrhotic morphology of liver, without appreciable parenchymal mass. Splenomegaly, as on the previous examination, axially measuring up to 19 cm, no acute parenchymal findings. No adrenal masses. Similar atrophic changes of the pancreas, without ductal dilation. Peripancreatic fat haziness. No hydronephrosis of the kidneys. Similar nonobstructing 6 mm calculus proximal right ureter at the level of L3/4. The stomach is not distended. There is no evidence of a small bowel obstruction. There is no significant distention of the colon. There appears to be some submucosal edema of the cecum and the ascending colon. The appendix is nondistended. Mild mesenteric edema, which may obscure subtle inflammation. No acute contrast extravasation is appreciated within the lumens of the stomach, small bowel, or the colon during the examination. Interval removal of Monroe catheter. Small amount of gas in the nondependent urinary bladder lumen, the urinary bladder does not appear to be significantly distended. Retained 10 mm bladder calculus. Bladder wall is thickened, and there is some mild perivesical fat haziness. No concerning pelvic or retroperitoneal adenopathy by size criteria. Recanalized umbilical vein to the left portal, one of the branches thereof appears thrombosed, similar to the previous examination. The portal vein, SMV, and splenic vein remain patent. Prominent collateral and coronary veins in the gastrohepatic ligament, and paraesophageal varices. Interval removal of Héctor-Yung drain from the abdomen. Scrotal edema, and subcutaneous edema at the base of the penis. No organized subcutaneous collections. No aggressive osseous lesions or interval changes. Procedure Note Jayme Amaya MD - 06/28/2025 CLINICAL INDICATION: recent prostatectomy c/b hemmorhagic shock, now with hypotension andhypoxia TECHNIQUE: Imaging of the chest abdomen and pelvis was performed, from thoracic inletthrough pubic symphysis, using spiral technique, following administrationof IV contrast, Omnipaque 350, 100 mL according to the CTA thoracicaorta/chest and CTA Abdomen/Pelvis protocol. Reformatted images in thecoronal, sagittal, and oblique planes were generated from the axial dataset to facilitate diagnostic accuracy. In addition, 3D images were createdand reviewed. Total DLP (Dose-Length Product): 2949.46 mGy.cm (accession [id number]),2949.46 mGy.cm (accession [id number]). Please note: The reported valuerepresents the total of one or more individual components during the CTacquisition on this date and at this time, and as such, the same value mayappear in more than one CT report depending on the interpreting/reportingphysicians. COMPARISON: 06/22/2025 FINDINGS: Chest: No mural hematoma within the thoracic aorta on the noncontrast portion ofthe examination. The arch vessels are patent. Mild calcific disease of the thoracic aorta,which appears without acute abnormality. Cardiac size is within normallimits. No pericardial effusion. No filling defects within the central,perihilar, or proximal segmental pulmonary arteries. Posterior dependent atelectasis of lungs. Elevation of the righthemidiaphragm, with associated subpleural atelectasis of the abuttingbasilar right lower lobe. No pleural effusions. No concerning mediastinal adenopathy by size criteria. No acute chest wall findings. No aggressive osseous lesions or interval changes. Abdomen/pelvis: Mild calcific aortoiliac atherosclerotic disease, the abdominal aorta iswithout acute finding, the visceral and the pelvic arteries are patent. Small volume nonhemorrhagic appearing abdominal and pelvic ascites. No free abdominal gas. Small foci of gas within the space of Retzius. Similar cirrhotic morphology of liver, without appreciable parenchymalmass. Splenomegaly, as on the previous examination, axially measuring upto 19 cm, no acute parenchymal findings. No adrenal masses. Similaratrophic changes of the pancreas, without ductal dilation. Peripancreaticfat haziness. No hydronephrosis of the kidneys. Similar nonobstructing 6 mm calculusproximal right ureter at the level of L3/4. The stomach is not distended. There is no evidence of a small bowelobstruction. There is no significant distention of the colon. Thereappears to be some submucosal edema of the cecum and the ascending colon.The appendix is nondistended. Mild mesenteric edema, which may obscuresubtle inflammation. No acute contrast extravasation is appreciated within the lumens of thestomach, small bowel, or the colon during the examination. Interval removal of Monroe catheter. Small amount of gas in thenondependent urinary bladder lumen, the urinary bladder does not appear allen significantly distended. Retained 10 mm bladder calculus. Bladder isaias thickened, and there is some mild perivesical fat haziness. No concerning pelvic or retroperitoneal adenopathy by size criteria. Recanalized umbilical vein to the left portal, one of the branches thereofappears thrombosed, similar to the previous examination. The portal vein,SMV, and splenic vein remain patent. Prominent collateral and coronaryveins in the gastrohepatic ligament, and paraesophageal varices. Interval removal of Héctor-Yung drain from the abdomen. Scrotal edema,and subcutaneous edema at the base of the penis. No organized subcutaneouscollections. No aggressive osseous lesions or interval changes. IMPRESSION: 1. No acute findings regarding the intrathoracic or intra-abdominal aorta.Visceral and pelvic arteries are patent. 2. No consolidation appreciated within the lungs. 3. Similar cirrhotic morphology of liver, and splenomegaly, and smallvolume ascites, mildly increased in the interval. Other stigmata of portalhypertension as described above, to include prominent collateral andcoronary veins in the gastrohepatic ligament, and paraesophagealvarices. 4. Interval removal of Monroe catheter, with retained 10 mm bladdercalculus. There appears be some perivesical fat haziness, and wallthickening urinary bladder, which may be secondary to underdistention,however recommend correlation with urinalysis, or symptoms of UTI. Smallamount of gas within the nondependent lumen may be residua of recent Foleycatheterization. 5. No free intra-abdominal gas, tiny foci of gas within the space ofRetzius. 6. No acute intraluminal contrast extravasation appreciated within thestomach, small bowel, or colon during the examination. 7. Submucosal edema of the cecum and of the ascending colon, most likelyportal colopathy, however correlate for any symptoms of a colitis. 8. Stable position of 6 mm nonobstructing proximal ureteral calculus atthe level of L3/4. 9. Peripancreatic fat haziness, which is most likely secondary to portalhypertension, however correlate for any elevation in serum lipase. 10. Scrotal edema, and subcutaneous edema at the base of the penis, nosoft tissue emphysema in the scrotum, or perineum. CRITICAL RESULT: No. COMMUNICATION: Per this written report. Drafted by Jayme Amaya MD on 06/28/2025 11:21 PM Final report signed by Jayme Amaya MD on 06/28/2025 11:53 PM Rg Coleman MD IMG CT PROCEDURES Final Result * (ABNORMAL) Lipase (06/28/2025 9:39 PM EDT) Lipase, Plasma 91(H) 19 - 63 U/L 06/29/2025 7:03 AM EDT [facility] Blood Venous blood specimen / Unknown Venipuncture / Unknown 06/28/2025 9:39 PM EDT 06/28/2025 9:47 PM EDT us Homero Gutierrez ASSOCIATE PROFESSOR OF ARCHAEOLOGY, DNP LAB BLOOD ORDERAB [place] [address] * Blood Culture (Aerobic/Anaerobet Set) (06/28/2025 9:39 PM EDT) Culture No growth at day 5 07/03/2025 11:02 PM EDT [facility] Blood Structure of left hand / Unknown Venipuncture / Unknown 06/28/2025 9:39 PM EDT 06/28/2025 10:04 PM EDT us Rg Coleman MD LAB MICROBIOLOGY - GENERAL ORD ERABLES Final Result Performing Organization Address City/[facility]/ZIP Co de Phone Number [facility] [address] [place] [address] * Blood Culture (Aerobic/Anaerobet Set) (06/28/2025 9:39 PM EDT) Culture No growth at day 5 07/03/2025 11:02 PM EDT [facility] Blood Structure of part of right upper limb / Unknown Venipuncture / Unknown 06/28/2025 9:39 PM EDT 06/28/2025 10:05 PM EDT us Rg Coleman MD LAB MICROBIOLOGY - GENERAL ORD ERABLES Final Result [facility] [address] [place] [address] * (ABNORMAL) C-Reactive protein (06/28/2025 9:39 PM EDT) CRP, Plasma 63.6(H) <=8.0 mg/L 06/28/2025 10:15 PM EDT [facility] Blood Venous blood specimen / Unknown Venipuncture / Unknown 06/28/2025 9:39 PM EDT 06/28/2025 9:47 PM EDT Narrative [facility] - 06/28/2025 10:15 PM EDT This CRP test is appropriate for assessment of infection, systemic inflammation and/or tissue injury. To assess cardiovascular disease risk order high sensitivity CRP (CRPH). us Rg Coleman MD LAB BLOOD ORDERABLES Final Res ult Performing Organization Address City/[facility]/ZIP Co de Phone Number [facility] [address] [place] [address] * (ABNORMAL) Troponin now and 120 min (06/28/2025 9:39 PM EDT) Troponin T, High Sensitivity, 0 Hour 24(H) <19 ng/L 06/28/2025 10:15 PM EDT [facility] Blood Venous blood specimen / Unknown Venipuncture / Unknown 06/28/2025 9:39 PM EDT 06/28/2025 9:47 PM EDT Rg Coleman MD LAB BLOOD ORDERABLES Final Res ult [facility] [address] [place] [address] * (ABNORMAL) CMP (06/28/2025 9:39 PM EDT) Glucose, Plasma 122(H) 74 - 99 mg/dL 06/28/2025 10:15 PM EDT [facility] BUN, Plasma 23 8 - 23 mg/dL 06/28/2025 10:15 PM EDT [facility] Creatinine, Plasma 1.49(H) 0.70 - 1.20 mg/dL 06/28/2025 10:15 PM EDT [facility] BUN/Creatinine Ratio 15 06/28/2025 10:15 PM EDT [facility] Sodium, Plasma 131(L) 136 - 145 mmol/L 06/28/2025 10:15 PM EDT [facility] Potassium, Plasma 3.7 3.6 - 4.9 mmol/L 06/28/2025 10:15 PM EDT [facility] Chloride, Plasma 98 97 - 107 mmol/L 06/28/2025 10:15 PM EDT [facility] CO2, Plasma 20(L) 22 - 29 mmol/L 06/28/2025 10:15 PM EDT [facility] Anion Gap 13 6 - 16 mmol/L 06/28/2025 10:15 PM EDT [facility] Total Calcium, Plasma 8.1(L) 8.9 - 10.2 mg/dL 06/28/2025 10:15 PM EDT [facility] Total Protein 5.3(L) 6.3 - 7.9 g/dL 06/28/2025 10:15 PM EDT [facility] Albumin, Plasma 2.7(L) 3.5 - 5.2 g/dL 06/28/2025 10:15 PM EDT [facility] AST, Plasma 67(H) 10 - 50 U/L 06/28/2025 10:15 PM EDT [facility] ALT, Plasma 49 10 - 50 U/L 06/28/2025 10:15 PM EDT [facility] Alkaline Phosphatase, Plasma 157(H) 40 - 115 U/L 06/28/2025 10:15 PM EDT [facility] Total Bilirubin, Plasma 2.8(H) 0.2 - 1.1 mg/dL 06/28/2025 10:15 PM EDT [facility] eGFRcr 50.2 mL/min/1.7 3m*2 06/28/2025 10:15 PM EDT [facility] Comment:Reported eGFRcr in m L/min/1.73m2 is based the CKD-EPI 2020 equation that does not use a race coefficient. Blood Venous blood specimen / Unknown Venipuncture / Unknown 06/28/2025 9:39 PM EDT 06/28/2025 9:47 PM EDT Rg Coleman MD LAB BLOOD ORDERABLES Final Res ult Performing Organization Address [facility] Co de Phone Number [facility] [address] [place] [address] * Type and screen (06/28/2025 9:39 PM EDT) ABO/Rh O Positive 06/28/2025 9:39 PM EDT [facility]LO[facility] Antibody Screen Negative 06/28/2025 9:39 PM EDT [facility]LO[facility] Specimen Expiration 07/01/2025 23:59 06/28/2025 9:39 PM EDT [facility] Blood Venous blood specimen / Unknown Venipuncture / Unknown 06/28/2025 9:39 PM EDT 06/28/2025 9:47 PM EDT Rg Coleman MD LAB BLOOD BANK TEST ORDERABLES Final Result Performing Organization Address [facility] Co de Phone Number BLOOD BANK [address] * (ABNORMAL) APTT (06/28/2025 9:39 PM EDT) aPTT 70(H) 25 - 35 sec 06/28/2025 10:05 PM EDT [facility] Blood Venous blood specimen / Unknown Venipuncture / Unknown 06/28/2025 9:39 PM EDT 06/28/2025 9:47 PM EDT Rg Coleman MD LAB BLOOD ORDERABLES Final Res ult Performing Organization Address City/[facility]/ZIP Co de Phone Number [facility] [address] [place] [address] * (ABNORMAL) CBC w/diff (06/28/2025 9:39 PM EDT) WBC Count 23.92(H) 3.70 - 10.30 10*3/uL LAB HEMATOLOGY METHOD 06/29/2025 1:00 AM EDT [facility] RBC Count 3.78(L) 4.60 - 6.10 10*6/uL LAB HEMATOLOGY METHOD 06/29/2025 1:00 AM EDT [facility] HGB 12.3(L) 13.7 - 17.5 g/dL LAB HEMATOLOGY METHOD 06/29/2025 1:00 AM EDT [facility] HCT 34.7(L) 40.0 - 51.0 % LAB HEMATOLOGY METHOD 06/29/2025 1:00 AM EDT [facility] Platelet Count 128(L) 155 - 369 10*3/uL LAB HEMATOLOGY METHOD 06/29/2025 1:00 AM EDT [facility] MCV 92 79 - 98 fL LAB HEMATOLOGY METHOD 06/29/2025 1:00 AM EDT [facility] MCH 32.5(H) 26.0 - 32.0 pg LAB HEMATOLOGY METHOD 06/29/2025 1:00 AM EDT [facility] MCHC 35.4 30.7 - 35.5 g/dL LAB HEMATOLOGY METHOD 06/29/2025 1:00 AM EDT [facility] RDW 16.3(H) 11.5 - 14.5 % LAB HEMATOLOGY METHOD 06/29/2025 1:00 AM EDT [facility] MPV 12.2 8.8 - 12.5 fL LAB HEMATOLOGY METHOD 06/29/2025 1:00 AM EDT [facility] nRBC 0.0 <=0.0 per 100 WBCs LAB HEMATOLOGY METHOD 06/29/2025 1:00 AM EDT [facility] Differential Type Automated LAB HEMATOLOGY METHOD 06/29/2025 1:00 AM EDT [facility] Neutrophils % 59 % LAB HEMATOLOGY METHOD 06/29/2025 1:00 AM EDT [facility] Lymphocytes % 37 % LAB HEMATOLOGY METHOD 06/29/2025 1:00 AM EDT [facility] Monocytes % 3 % LAB HEMATOLOGY METHOD 06/29/2025 1:00 AM EDT [facility] Eosinophils % 0 % LAB HEMATOLOGY METHOD 06/29/2025 1:00 AM EDT [facility] Basophils % 0 % LAB HEMATOLOGY METHOD 06/29/2025 1:00 AM EDT [facility] Immature Granulocytes % 1 % LAB HEMATOLOGY METHOD 06/29/2025 1:00 AM EDT [facility] Neutrophils Absolute 13.97(H) 1.60 - 6.10 10*3/uL LAB HEMATOLOGY METHOD 06/29/2025 1:00 AM EDT [facility] Lymphocytes Absolute 8.87(H) 1.20 - 3.90 10*3/uL LAB HEMATOLOGY METHOD 06/29/2025 1:00 AM EDT [facility] Monocytes Absolute 0.73 0.30 - 0.90 10*3/uL LAB HEMATOLOGY METHOD 06/29/2025 1:00 AM EDT [facility] Eosinophils Absolute 0.07 0.00 - 0.50 10*3/uL LAB HEMATOLOGY METHOD 06/29/2025 1:00 AM EDT [facility] Basophils Absolute 0.06 0.00 - 0.10 10*3/uL LAB HEMATOLOGY METHOD 06/29/2025 1:00 AM EDT [facility] Immature Granulocytes Absolute 0.16(H) 0.00 - 0.06 10*3/uL LAB HEMATOLOGY METHOD 06/29/2025 1:00 AM EDT [facility] Blood Venous blood specimen / Unknown Venipuncture / Unknown 06/28/2025 9:39 PM EDT 06/28/2025 9:47 PM EDT Narrative [facility] - 06/29/2025 1:00 AM EDT Therapeutic decision making should be based on absolute values, rather than percentages. us Rg Coleman MD LAB BLOOD ORDERABLES Final Res ult [facility] [address] [place] [address] * (ABNORMAL) PT-INR (06/28/2025 9:39 PM EDT) Prothrombin Time 21.0(H) 12.0 - 14.3 sec 06/28/2025 10:04 PM EDT [facility] INR 1.8(H) 0.9 - 1.1 06/28/2025 10:04 PM EDT [facility] Blood Venous blood specimen / Unknown Venipuncture / Unknown 06/28/2025 9:39 PM EDT 06/28/2025 9:47 PM EDT Narrative [facility] - 06/28/2025 10:04 PM EDT OPTIMAL INR RANGES FOR PATIENT ON ORAL ANTICOAGULANT THERAPY Prevention of venous thromboembolism INR 2.0 to 3.0 In patients with heart disease: Atrial fibrillation INR 2.0 to 3.0 Valvular heart disease INR 2.0 to 3.0 Tissue heart valves INR 2.0 to 3.0 Mechanical prosthetic valves INR 2.5 to 3.5 Prevention of recurrent DE INR 2.5 to 3.5 us Rg Coleman MD LAB BLOOD ORDERABLES Final Res ult [facility] [address] [place] [address] * (ABNORMAL) POCT venous blood gas gem (06/28/2025 9:33 PM EDT) pH, Venous 7.50(H) 7.32 - 7.43 06/28/2025 9:35 PM EDT [facility] pCO2, Venous 28(L) 40 - 55 mm Hg 06/28/2025 9:35 PM EDT [facility] pO2, Venous 66(H) 25 - 40 mm Hg 06/28/2025 9:35 PM EDT [facility] SO2, Venous 96(H) 65 - 80 % 06/28/2025 9:35 PM EDT [facility] Base Excess/Deficit, Venous -0.3 -2 - 3 mmol/L 06/28/2025 9:35 PM EDT [facility] HCO3, Venous 21.8(L) 22 - 26 mmol/L 06/28/2025 9:35 PM EDT [facility] Hemoglobin, Venous 12.8(L) 13.7 - 17.5 g/dL 06/28/2025 9:35 PM EDT [facility] Hematocrit, Venous 38.0(L) 40.0 - 51.0 % 06/28/2025 9:35 PM EDT [facility] Sodium, Venous 129(L) 136 - 145 mmol/L 06/28/2025 9:35 PM EDT [facility] Potassium, Venous 3.6 3.6 - 4.9 mmol/L 06/28/2025 9:35 PM EDT [facility] Comment:Hemolyzed, result ma y be falsely increased. POCT Chloride, Venous 98 97 - 107 mmol/L 06/28/2025 9:35 PM EDT [facility] Glucose, Venous 114(H) 74 - 99 mg/dL 06/28/2025 9:35 PM EDT [facility] Ionized Calcium, Venous 4.2(L) 4.6 - 5.1 mg/dL 06/28/2025 9:35 PM EDT [facility] Lactate, Venous 2.5(H) 0.5 - 2.2 mmol/L 06/28/2025 9:35 PM EDT [facility] Body Temperature 37.0 Celsius 06/28/2025 9:35 PM EDT [facility] pH, Temp Corrected, Venous 7.50(H) 7.32 - 7.43 06/28/2025 9:35 PM EDT [facility] pCO2, Temp Corrected, Venous 28(L) 40 - 55 mm Hg 06/28/2025 9:35 PM EDT [facility] pO2, Temp Corrected, Venous 66(H) 25 - 40 mm Hg 06/28/2025 9:35 PM EDT [facility] Engagement Executive ID SHIRA Herzog 06/28/2025 9:35 PM EDT [facility] Blood, Venous Whole blood specimen / Unknown 06/28/2025 9:33 PM EDT 06/28/2025 9:35 PM EDT us Generic Provider Poct LAB POINT OF CARE TEST DOCKED DEVICE UNSOLICITED RESULTS Final Result [facility] [address] [place] [id number] * (ABNORMAL) POCT glucose meter (06/28/2025 9:22 PM EDT) POCT Glucose 119(H) 74 - 99 mg/dL 06/28/2025 9:23 PM EDT [facility] Comment:Accuracy of a glucos e result obtained from a capillary whole blood specimen relies upon adequate, non-compromised capillary blood flow. If the capillary glucose result is not consistent with the patient's clinical signs and symptoms, glucose testing should be repeated with either an arterial or venous sample on the glucometer or sent to the main labortory for testing. Comment 06/28/2025 9:23 PM EDT [facility] Engagement Executive ID Abdi Major 06/28/2025 9:23 PM EDT [facility] Device ID [id number] 06/28/2025 9:23 PM EDT [facility] Specimen Type POC Capillary 06/28/2025 9:23 PM EDT [facility] Blood Capillary blood specimen / Unknown 06/28/2025 9:22 PM EDT 06/28/2025 9:23 PM EDT us Generic Provider Poct LAB POINT OF CARE TEST DOCKED DEVICE UNSOLICITED RESULTS Final Result Performing Organization Address City/State/[facility] Co de Phone Number [facility] [address] [place] [phone] documented in this encounter Visit Diagnoses Diagnosis Sepsis, localized, in operative wound (CMS/HCC)- Primary Febrile illness Hypotension, unspecified hypotension type Right ureteral stone Cirrhosis of liver with ascites, unspecified hepatic cirrhosis type (CMS/HCC) Severe obesity (BMI 35.0-39.9) with comorbidity (CMS/HCC) UTI (urinary tract infection) Urinary tract infection, site not specified Leukocytosis Leukocytosis, unspecified Renal calculi Calculus of kidney Right ureteral stone Ureteral stone- Primary Calculus of ureter Ureteral stone Calculus of ureter documented in this encounter Admitting Diagnoses Diagnosis Sepsis, localized, in operative wound (CMS/HCC) Right ureteral stone documented in this encounter Administered Medications Inactive Administered Medications - up to 3 most recent administrations Medication Order MAR Action Action Date Dose Rate Site atorvastatin (Lipitor) tablet 10 mg 10 mg, Oral, Daily, First dose on 06/29/25 at 0900, Until Discontinued, Routine Given 07/04/2025 8:19 AM EDT 10 mg Given 07/03/2025 9:53 AM EDT 10 mg Given 07/02/2025 8:48 AM EDT 10 mg bisacodyl (Dulcolax) suppository 10 mg 10 mg, Rectal, Daily PRN, Starting on 06/30/25 at 0606, Until Mon07/04/25 at 1650, Routine, constipation Given 06/30/2025 11:38 AM EDT 10 mg carvedilol (Coreg) tablet 3.125 mg 3.125 mg, Oral, 2 times daily, First dose on Mon07/04/25 at 1045, Until Discontinued, Routine Given 07/04/2025 11:46 AM EDT 3.125 mg cefepime (Maxipime) 2 g in sodium chloride 0.9% 100 mL IVPB (vial adapter required) 2 g, Intravenous, Every 12 hours, First dose on Mon06/29/25 at 0730, Until Discontinued, Routine New Bag 06/29/2025 10:13 AM EDT 2 g 36.7 mL/hr cefepime (Maxipime) 2 g in sodium chloride 0.9% 100 mL IVPB (vial adapter required) 2 g, Intravenous, Every 8 hours, First dose (after last modification) on Mon06/29/25 at 2200, Until Discontinued, Routine Bolus 07/03/2025 5:50 PM EDT 2 g New Bag 07/03/2025 6:17 AM EDT 2 g 36.7 mL/hr New Bag 07/02/2025 9:24 PM EDT 2 g 36.7 mL/hr cefepime (Maxipime) 2 g in sodium chloride 0.9% 100 mL IVPB (vial adapter required) 2 g, Intravenous, Every 12 hours, First dose on Mon07/04/25 at 0845, Until Discontinued, Routine New Bag 07/04/2025 9:37 AM EDT 2 g 36.7 mL/hr enoxaparin (Lovenox) syringe 110 mg 110 mg, Subcutaneous, Every 12 hours, First dose on Mon06/29/25 at 1830, Until Discontinued, Routine Given 07/04/2025 7:01 AM EDT 110 mg Left Lower Abdomen Given 07/02/2025 6:36 AM EDT 110 mg Le ft Lower Abdomen Given 07/01/2025 5:41 PM EDT 110 mg Ri ght Upper Abdomen fluconazole (Diflucan) tablet 200 mg 200 mg, Oral, Daily, 14 doses, First dose on Mon06/30/25 at 1245, Last dose on Mon07/13/25 at 0900, Routine Given 07/04/2025 8:19 AM EDT 200 mg Given 07/03/2025 9:53 AM EDT 200 mg Given 07/02/2025 8:48 AM EDT 200 mg iohexol (OMNIPaque) 350 MG/ML injection 100 mL 100 mL, Intravenous, Once in imaging, 1 dose, Starting on 06/28/25 at 2250, Until 06/28/25 at 2251, Routine, Imaging Protocol Orders Given 06/28/2025 10:51 PM EDT 100 mL lactated Ringer's bolus 1,000 mL 1,000 mL, Intravenous, Once, 1 dose, On Mon06/30/25 at 1500, Administer over 6 Hours, Routine New Bag 06/30/2025 5:27 PM EDT 1,000 mL 166.7 mL/hr lactated Ringer's infusion 1,000 mL 1,000 mL, Intravenous, Once, 1 dose, On 06/28/25 at 2140, STAT New Bag 06/28/2025 9:41 PM EDT 1,000 mL lactulose (Chronulac) 10 GM/15ML solution 10 g 10 g, Oral, 3 times daily, First dose on Mon06/29/25 at 0900, Until Discontinued, Routine Given 06/30/2025 8:16 AM EDT 10 g Given 06/29/2025 8:39 PM EDT 10 g Given 06/29/2025 4:47 PM EDT 10 g lactulose (Chronulac) 10 GM/15ML solution 20 g 20 g, Oral, 3 times daily, First dose (after last modification) on Mon06/30/25 at 1600, Until Discontinued, Routine Given 07/04/2025 8:20 AM EDT 20 g Given 07/03/2025 3:46 PM EDT 20 g Given 07/03/2025 9:54 AM EDT 20 g levoFLOXacin (Levaquin) tablet 750 mg 750 mg, Oral, Daily, 4 doses, First dose on Mon07/04/25 at 1045, Last dose on Mon07/07/25 at 0900, Routine Given 07/04/2025 11:46 AM EDT 750 mg magnesium sulfate IVPB 4 g 4 g, Intravenous, Once, 1 dose, On Mon06/30/25 at 1915, Routine New Bag 06/30/2025 9:18 PM EDT 4 g 25 mL/hr methocarbamol (Robaxin) tablet 500 mg 500 mg, Oral, 4 times daily PRN, Starting on Mon06/29/25 at 0627, Until Mon07/04/25 at 1650, Routine, muscle spasms Given 07/01/2025 8:45 PM EDT 500 mg Given 07/01/2025 5:01 AM EDT 500 mg Given 06/30/2025 8:56 PM EDT 500 mg metroNIDAZOLE (Flagyl) tablet 500 mg 500 mg, Oral, Every 8 hours, 30 doses, First dose on Mon06/29/25 at 0720, Last dose on Mon07/08/25 at 2320, Routine Given 07/04/2025 7:01 AM EDT 500 mg Given 07/03/2025 10:27 PM EDT 500 mg Given 07/03/2025 3:46 PM EDT 500 mg miconazole (Micotin) 2 % powder 1 Application Topical, 2 times daily, First dose on Mon07/04/25 at 1045, Until Discontinued, Routine Given 07/04/2025 11:45 AM EDT 1 Application morphine PF 4 mg 4 mg, Intravenous, Once, 1 dose, On Mon06/28/25 at 2225, STAT Given 06/28/2025 11:07 PM EDT 4 mg mupirocin (Bactroban) 2 % ointment 1 Application Each Nostril, 2 times daily, 10 doses, First dose on Mon06/29/25 at 2100, Last dose on Mon07/04/25 at 0900, Routine Given 07/04/2025 8:19 AM EDT 1 Application Given 07/03/2025 9:53 AM EDT 1 Application Given 07/02/2025 8:48 AM EDT 1 Application ondansetron (Zofran) injection 4 mg 4 mg, Intravenous, Every 6 hours PRN, Starting on Mon06/30/25 at 1657, Until Mon07/04/25 at 1650, Routine, vomiting, nausea ondansetron ODT (Zofran-ODT) disintegrating tablet 4 mg 4 mg, Oral, Every 6 hours PRN, Starting on Mon06/30/25 at 1657, Until Mon07/04/25 at 1650, Routine, nausea, vomiting oxyCODONE (Roxicodone) immediate release tablet 5 mg 5 mg, Oral, Every 6 hours PRN, Starting on Mon06/29/25 at 1605, Until Mon07/04/25 at 1650, Routine, moderate pain Given 07/03/2025 10:27 PM EDT 5 mg Given 07/02/2025 8:40 PM EDT 5 mg Given 07/01/2025 8:45 PM EDT 5 mg piperacillin-tazobactam (Zosyn) 4.5 g in sodium chloride 0.9% 100 mL IVPB (vial adapter required) 4.5 g, Intravenous, Once, 1 dose, On 06/28/25 at 2225, STAT New Bag 06/28/2025 10:24 PM EDT 4.5 g 22 0 mL/hr potassium chloride IVPB 10 mEq 10 mEq, Intravenous, Every 1 hour, 4 doses, First dose on Mon06/30/25 at 1915, Last dose on Mon06/30/25 at 2215, RoutineIndications:Hypokalemia New Bag 07/01/2025 2:53 AM EDT 10 mEq 100 mL/hr New Bag 07/01/2025 1:42 AM EDT 10 mEq 100 mL/hr New Bag 07/01/2025 12:29 AM EDT 10 mEq 100 mL/hr Povidone-Iodine 5 % swab solution 1 Application Nasal, Once, 1 dose, On [place]un[place] 07/03/25 at 1715, Routine Given 07/03/2025 4:54 PM EDT 1 Application Povidone-Iodine 5 % swab solution Apply externally, 1 Hour Prior To Procedure, 1 dose, On [facility] 07/03/25 at 1800, Routine Given 07/03/2025 5:07 PM EDT sodium chloride 0.9 % flush 10 mL 10 mL, Intravenous, Every 12 hours, First dose on Mon06/29/25 at 0520, Until Discontinued, Routine Given 07/04/2025 7:11 AM EDT 10 mL Given 07/02/2025 6:07 PM EDT 10 mL Given 07/01/2025 4:24 PM EDT 10 mL sodium chloride 0.9 % flush 10 mL 10 mL, Intravenous, As needed, Starting on Mon06/29/25 at 0517, Until Mon07/04/25 at 1650, Routine, line care tamsulosin (Flomax) 24 hr capsule 0.4 mg 0.4 mg, Oral, Daily with dinner, First dose on 06/29/25 at 1800, Until Discontinued, Routine Given 07/02/2025 5:13 PM EDT 0.4 mg Given 07/01/2025 5:40 PM EDT 0.4 mg Given 06/30/2025 5:06 PM EDT 0.4 mg vancomycin (Vancocin) 2,750 mg in sodium chloride 0.9 % 500 mL IVPB 2,750 mg (rounded from 2,675 mg = 25 mg/kg 107 kg), Intravenous, Once, 1 dose, On 06/28/25 at 2210, at 190.8 mL/hr, STAT New Bag 06/28/2025 11:08 PM EDT 2,750 mg 190.8 mL/ hr Vancomycin HCl in NaCl (Vancocin) IVPB 1,000 mg 1,000 mg (rounded from 1,090 mg = 10 mg/kg 109 kg), Intravenous, Once, 1 dose, On 06/29/25 at 2000, at 250 mL/hr, Routine Given 06/29/2025 10:07 PM EDT 1,000 mg 250 mL/h r vancomycin in NS (Vancocin) IVPB 1,500 mg 1,500 mg, Intravenous, Every 24 hours, First dose on 06/30/25 at 1615, Until Discontinued, at 166.7 mL/hr, Routine New Bag 06/30/2025 5:07 PM EDT 1,500 mg 166.7 mL/hr documented in this encounter Active and Recently Administered Medications Times are shown in EDT. Scheduled Medication Order 07/02/2025 07/03/2025 07/04/2025 atorvastatin (Lipitor) tablet 10 mg 10 mg, Oral, Daily, First dose on Mon06/29/25 at 0900, Until Discontinued, Routine 0848 (Given - Provider: Jing Field, TIERA) 0953 (Given - Provider: Jing Field RN)1618 (JAN Hold - Provider: Automatic Transfer Provider - Reason: Patient in procedure)2032 (JAN Unhold - Provider: Automatic Transfer Provider) 0819 (Given - Provider: Ju Herrera RN) carvedilol (Coreg) tablet 3.125 mg 3.125 mg, Oral, 2 times daily, First dose on Mon07/04/25 at 1045, Until Discontinued, Routine 1146 (Given - Provid er: Ju Herrera RN) cefepime (Maxipime) 2 g in sodium chloride 0.9% 100 mL IVPB (vial adapter required) (CANCELED) 2 g, Intravenous, Every 8 hours, First dose (after last modification) on 06/29/25 at 2200, Until Discontinued, Routine 0621 (New Bag - Provider: Marielena Munoz RN)1433 (New Bag - Provider: Jing Field RN)2124 (New Bag - Provider: Marielena Munoz RN) 0617 (New Bag - Provider: Marielena Munoz RN)1400 (Due)1750 (Bolus - Provider: Lary Bloom, [employer]PER[employer]ENT [employer], DNP) cefepime (Maxipime) 2 g in sodium chloride 0.9% 100 mL IVPB (vial adapter required) (CANCELED) 2 g, Intravenous, Every 12 hours, First dose on Mon07/04/25 at 0845, Until Discontinued, Routine 0937 (New Bag - Provider: Ju Herrera RN) enoxaparin (Lovenox) syringe 110 mg 110 mg, Subcutaneous, Every 12 hours, First dose on 06/29/25 at 1830, Until Discontinued, Routine 0636 (Given - Provider: Marielena Munoz RN)1534 (Held by provider - Provider: Quentin Anderson MD - Reason: Upcoming test/procedure)1830 (Dose Auto Held - Provider: Quentin Anderson MD) 0630 (Dose Auto Held - Provider: Quentin Anderson MD)1830 (Dose Auto Held - Provider: Quentin Anderson MD)1902 (Unheld by provider - Provider: Quentin Anderson MD) 0701 (Given - Provider: Claude Ash RN) fluconazole (Diflucan) tablet 200 mg 200 mg, Oral, Daily, 14 doses, First dose on Mon06/30/25 at 1245, Last dose on Mon07/13/25 at 0900, Routine 0848 (Given - Provider: Jing Field, TIERA) 0953 (Given - Provider: Jing Field, TIERA)1618 (MAR Hold - Provider: Automatic Transfer Provider - Reason: Patient in procedure)2033 (MAR Unhold - Provider: Automatic Transfer Provider) 0819 (Given - Provider: Ju Herrera RN) lactated Ringer's infusion (CANCELED) 100 mL/hr, Intravenous, Once, 1 dose, On [place] 07/03/25 at 1715, Routine 1726 (New Bag - Provider: Lary Bloom CRNA, LUDMILA)1842 (Stopped - Provider: Lary Bloom CRNA, LUDMILA) lactulose (Chronulac) 10 GM/15ML solution 20 g 20 g, Oral, 3 times daily, First dose (after last modification) on Mon06/30/25 at 1600, Until Discontinued, Routine 0847 (Given - Provider: Jing Field, TIERA)1713 (Not Given - Provider: Jing Field RN - Reason: Patient/family refused)204 (Given - Provider: Marielena Munoz RN) 0954 (Given - Provider: Jing Field RN)1546 (Given - Provider: Jing Field RN)1618 (MAR Hold - Provider: Automatic Transfer Provider - Reason: Patient in procedure)203 (MAR Unhold - Provider: Automatic Transfer Provider)222 (Not Given - Provider: Claude Ash RN - Reason: Patient/family refused - Comment: 3-4 bm stated by patient) 0820 (Given - Provider: Ju Herrera RN)1600 (Canceled Entry - Provider: Automatic Discharge Provider - Comment: Automatically canceled at discontinue of medication order) levoFLOXacin (Levaquin) tablet 750 mg 750 mg, Oral, Daily, 4 doses, First dose on Mon07/04/25 at 1045, Last dose on Mon07/07/25 at 0900, Routine 1146 (Given - Provid er: Ju Herrera RN) metroNIDAZOLE (Flagyl) tablet 500 mg 500 mg, Oral, Every 8 hours, 30 doses, First dose on Mon06/29/25 at 0720, Last dose on Mon07/08/25 at 2320, Routine 0848 (Given - Provider: Jing Field RN)1433 (Given - Provider: Jing Field, TIERA)2348 (Given - Provider: Marielena Munoz RN) 0953 (Given - Provider: Jing Field RN)1546 (Given - Provider: Jing Field RN)1618 (JAN Hold - Provider: Automatic Transfer Provider - Reason: Patient in procedure)2032 (MAR Unhold - Provider: Automatic Transfer Provider)222 (Given - Provider: Claude Ash RN) 0701 (Given - Provider: Claude Ash RN)1520 (Canceled Entry - Provider: Automatic Discharge Provider - Comment: Automatically canceled at discontinue of medication order) miconazole (Micotin) 2 % powder 1 Application Topical, 2 times daily, First dose on Mon07/04/25 at 1045, Until Discontinued, Routine 1145 (Given - Provid er: Ju Herrera RN) mupirocin (Bactroban) 2 % ointment 1 Application Each Nostril, 2 times daily, 10 doses, First dose on Mon06/29/25 at 2100, Last dose on Mon07/04/25 at 0900, Routine 0848 (Given - Provider: Jing Field RN)204 (Not Given - Provider: Marielena Munoz RN - Reason: Patient/family refused) 0953 (Given - Provider: Jing Field RN)1618 (JAN Hold - Provider: Automatic Transfer Provider - Reason: Patient in procedure)2032 (MAR Unhold - Provider: Automatic Transfer Provider)2228 (Not Given - Provider: Claude Ash RN - Reason: Patient/family refused - Comment: already received 2 doses today) 0819 (Given - Provider: Ju Herrera, TIERA) Povidone-Iodine 5 % swab solution 1 Application (COMPLETED) Nasal, Once, 1 dose, On Mon07/03/25 at 1715, Routine 1654 (Given - Provider: Bryan Og, TIERA) Povidone-Iodine 5 % swab solution (COMPLETED) Apply externally, 1 Hour Prior To Procedure, 1 dose, On [place] 07/03/25 at 1800, Routine 1707 (Given - Provider: Bryan Og, TIERA) sodium chloride 0.9 % flush 10 mL(Linked Group 1) 10 mL, Intravenous, Every 12 hours, First dose on Mon06/29/25 at 0520, Until Discontinued, Routine 0511 (Not Given - Provider: Marielena Munoz RN - Reason: Patient/family refused)1807 (Given - Provider: Jing Field, TIERA) 0553 (Not Given - Provider: Marielena Munoz RN - Reason: Patient/family refused)161 ([facility] Hold - Provider: Automatic Transfer Provider - Reason: Patient in procedure)1720 (Dose Auto Held - Provider: Automatic Transfer Provider)2032 ([facility] Unhold - Provider: Automatic Transfer Provider) 0711 (Given - Provider: Claude Ash, TIERA) tamsulosin (Flomax) 24 hr capsule 0.4 mg 0.4 mg, Oral, Daily with dinner, First dose on 06/29/25 at 1800, Until Discontinued, Routine 1713 (Given - Provider: Jing Field RN) 161 ([facility] Hold - Provider: Automatic Transfer Provider - Reason: Patient in procedure)1800 (Dose Auto Held - Provider: Automatic Transfer Provider)2032 ([facility] Unhold - Provider: Automatic Transfer Provider) PRN Medication Order 07/02/2025 07/03/2025 07/04/2025 bisacodyl (Dulcolax) suppository 10 mg 10 mg, Rectal, Daily PRN, Starting on 06/30/25 at 0606, Until Mon07/04/25 at 1650, Routine, constipation 161 ([facility] Hold - Provider: Automatic Transfer Provider - Reason: Patient in procedure)2032 ([facility] Unhold - Provider: Automatic Transfer Provider) iohexol (OMNIPaque) 300 MG/ML injection (CANCELED) As needed, Starting on [place]un[place] 07/03/25 at 1758, Until [place] 07/03/25 at 1844, Routine, Intraprocedure 1758 (Given - Provider: Dyllan Paul MD) methocarbamol (Robaxin) tablet 500 mg 500 mg, Oral, 4 times daily PRN, Starting on 06/29/25 at 0627, Until Mon07/04/25 at 1650, Routine, muscle spasms 161 ([facility] Hold - Provider: Automatic Transfer Provider - Reason: Patient in procedure)2032 ([facility] Unhold - Provider: Automatic Transfer Provider) ondansetron (Zofran) injection 4 mg(Linked Group 2) 4 mg, Intravenous, Every 6 hours PRN, Starting on 06/30/25 at 1657, Until Mon07/04/25 at 1650, Routine, vomiting, nausea 161 ([facility] Hold - Provider: Automatic Transfer Provider - Reason: Patient in procedure)2032 ([facility] Unhold - Provider: Automatic Transfer Provider) ondansetron (Zofran) injection 4 mg (COMPLETED) 4 mg, Intravenous, Once as needed, 1 dose, Starting on Eun[place] 07/03/25 at 1627, Until [place] 07/03/25 at 1805, Routine, Holding - Preprocedure, nausea, vomiting 1805 (Given - Provider: Lary Bloom, [employer], DNP) ondansetron ODT (Zofran-ODT) disintegrating tablet 4 mg(Linked Group 2) 4 mg, Oral, Every 6 hours PRN, Starting on 06/30/25 at 1657, Until Mon07/04/25 at 1650, Routine, nausea, vomiting 1618 ([facility] Hold - Provider: Automatic Transfer Provider - Reason: Patient in procedure)2032 ([facility] Unhold - Provider: Automatic Transfer Provider) oxyCODONE (Roxicodone) immediate release tablet 5 mg 5 mg, Oral, Every 6 hours PRN, Starting on Mon06/29/25 at 1605, Until Mon07/04/25 at 1650, Routine, moderate pain 2040 (Given - Provider: Marielena Munoz, TIERA) 1618 ([facility] Hold - Provider: Automatic Transfer Provider - Reason: Patient in procedure)2032 ([facility] Unhold - Provider: Automatic Transfer Provider)2226 (Given - Provider: Claude Ash, TIERA) sodium chloride 0.9 % flush 10 mL(Linked Group 1) 10 mL, Intravenous, As needed, Starting on Mon06/29/25 at 0517, Until Mon07/04/25 at 1650, Routine, line care 1618 ([facility] Hold - Provider: Automatic Transfer Provider - Reason: Patient in procedure)2032 ([facility] Unhold - Provider: Automatic Transfer Provider) Linked Groups Order Group 1: Insert peripheral IV (CANCELED) Once, On Mon06/29/25 at 0518, For 1 occurrence And Saline lock IV (CANCELED) Once, On Mon06/29/25 at 0518, For 1 occurrence And sodium chloride 0.9 % flush 10 mLJump to med 10 mL, Intravenous, Every 12 hours, First dose on Mon06/29/25 at 0520, Until Discontinued, Routine And sodium chloride 0.9 % flush 10 mLJump to med 10 mL, Intravenous, As needed, Starting on 06/29/25 at 0517, Until Mon07/04/25 at 1650, Routine, line care Group 2: ondansetron ODT (Zofran-ODT) disintegrating tablet 4 mgJump to med 4 mg, Oral, Every 6 hours PRN, Starting on Mon06/30/25 at 1657, Until Mon07/04/25 at 1650, Routine, nausea, vomiting Or ondansetron (Zofran) injection 4 mgJump to med 4 mg, Intravenous, Every 6 hours PRN, Starting on 06/30/25 at 1657, Until Mon07/04/25 at 1650, Routine, vomiting, nausea Or ondansetron (Zofran) 4 MG/5ML solution 4 mg (CANCELED) 4 mg, Oral, Every 6 hours PRN, Starting on 06/30/25 at 1657, Until Mon07/01/25 at 1407, Routine, nausea, vomiting documented in this encounter Additional Health Concerns Active Problems Noted Date Diagnosed Date Autogenerated Problem 08/01/2025 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 Assessment Noted Time PHQ-9 Depression Total Score: 0 04/29/20 12:43 PM EDT A fall risk assessment has been complete d for the patient 04/29/2025 12:44 PM EDT A Body Mass Index follow-up plan has been documented for the patient 07/04/2025 11:54 AM EDT documented as of this encounter Care Teams Loan Collector Relationship Specialty Start Date End Date Murray Prajapati MD [facility] [address] [place] [address] PCP - General 03/06/23 Jaja Camara APRN [address] [facility] [address] [place] [address] Referring Physician Gastroenterology 03/06/23 Dyllan Paul MD [address] [facility] [address] [place] [phone] Surgeon Urology 04/29/25 Marlin Martinez, RN [facility] Registered Nurse 06/30/25 06/30/25 documented as of this encounter
--- OUTSIDE RECORDS SUMMARY | 2025-07-03 16:23 | XMS_ITS | Encounter Summary ---
Author Organization [facility] Address [address] [place] [address] Care Team Providers Care Conservation Science Teacher Name Role Phone Murray Prajapati MD Primary Care Provider [phone] Jaja Camara POLICY WRITER TYPIST Unavailable [phone] Dyllan Paul MD Unavailable [phone] Reason for Visit * Reason Comments Fever Post-op Problem Fatigue * Auth/Cert (Routine) Specialty Diagnoses / Procedures Referred By Silverio barone Referred To Contact Diagnoses Sepsis, localized, in operative wound (CMS/HCC) Lizzie Cadena MD [address] [place] [address] Phone: tel: fax: PAV A Inpatient [address] [place] [address] Referral ID Status Reason Start Date Expiration Date Visits Re quested Visits Authorized [id number] 1 1 Encounter Details Date Type Department Care Team (Late st Contact Info) Description 07/03/2025 4:23 PM EDT - 07/03/2025 5:08 PM EDT Surgery PAV A OPERATING ROOM [address] [place] [address] Dyllan Paul MD [address] [facility] [address] [place] [address] CYSTOSCOPY, WITH URETERAL STENT INSERTION [05207 (CPT )] Surgery Details Date/Time Status Location OR Service Patient Class Case Cl ass Case Type Trauma Case? 07/03/2025 4:23 PM Posted [facility] Inpatient T-Timed: to be done within [...] any time in the past 12 m [facility], were you homeless or living in a custodial (including now)? No 06/16/2025 CAGE ASSESSMENT Answer [...] drink first t rafy in the morning (E[employer]-PEOPLESOFT) to steady your nerves or to get rid of a hangover? 0 06/28/2025 CAGE Questionnaire Score 0 025 Utilities Answer Date Recorded In the past 12 months has th Miso, gas, oil, or water company threatened to [...] Risk Indicated 07/02/2025 8:00 PM EDT Cyndi uMnoz RN * Question Answer Date of Assessment [...] Anderson MD - 07/04/2025 2:50 PM EDT [facility] MEDICINE DISCHARGE SUMMARY Hospitalization Admit Date/Time: 06/28/2025 9:28 PM Admitting Attending: Lizzie Cadena Discharge Date: 07/04/2025 Discharge Attending Physician: Quentin Anderson MD PCP name and Address: Murray Prajapati MD [address] [place] [address] [address] / [place] [address] Referring provider name and address: No referring [...] known as: Micotin Apply to affected areas pgncrxvvrdwm-esvo-vbergluk-folic acid chewable tablet Chew 1 tablet daily. [...] Your Medications These medications were sent to [facility] - [place], [place] - [address] [facility] [address] acetaminophen 500 MG tablet fluconazole 200 MG [...] preparation for this discharge. Quentin Anderson MD, [facility], FACP Fitter Tacker Division of Hospital Medicine * Progress Notes - Bianka Hansen MD - 07/04/2025 2:06 PM EDT [facility] Urology Inpatient Progress Note Primary Attending: Dyllan [...] Hansen MD Department of Urology, PGY-1 Pager: [phone] Cosigned by Dyllan Paul MD at 07/07/2025 7:10 PM EDT Associated attestation - Dyllan Paul MD - 07/07/2025 7:10 PM EDT I saw and evaluated the patient. I discussed the case with the resident/fellow and agree with the findings and plan as documented. * Nursing Note - Ju Herrera RN - 07/04/2025 2:00 PM EDT Patient AVS summary printed and discharge education provided. [id number] delivered at bedside. PIVs removed with tips intact. PT currently en route to discharge [facility] where his will pick him up and [...] Protection Flowsheets Taken 07/04/2025 115 by Ju Herrera, RN Skin Protection: protective [...] encouraged Taken 07/03/2025 1117 by Jing Field sprayer auto parts Review/Management: medications reviewed Problem: Fall Injury Risk Goal: Absence of Fall and Fall-Related Injury Intervention: Promote Injury-Free Environment Flowsheets (Taken 07/04/2025 1000) Safety Promotion/Fall Prevention: clutter-free environment maintained lighting adjusted room organization consistent safety round/check completed Problem: Pain Acute Goal: Optimal Pain Control and Function Intervention: Prevent or Manage Pain Flowsheets (Taken 07/03/2025 111 by Jing Field, TIERA) Sensory Stimulation Regulation: care clustered Bowel [...] Daily Living Intervention: Promote Activity and Functional [place] Flowsheets Taken 07/04/2025 1159 by Ju Herrera [...] from the original note were not included. [address] Using an Incentive Spirometer An incentive spirometer [...] rate Last Reviewed Date: 2025 00:00:00 ?? 5273-4436 The [employer]. All rights reserved. This information is not [...] the video go to this web address: [email or web address] Or, scan this QR code with your smart phone Last Reviewed Date: 2020 00:00:00 ?? 5275-1005 The [employer]. All rights reserved. This information is not intended as a substitute for professional medical care. Always follow your healthcare professional's instructions. * Laury On[employer] - Ju Herrera RN - 07/04/2025 11:53 [...] Note Scout Lowe 70 y.o. male CSN: [id number] Admission: 06/28/2025 9:28 PM Primary Problem: Sepsis, localized, in operative wound (CMS/HCC) Primary Hoop Driving Machine Operator Helper: Primary Caregiver: Self Assistance Available at Discharge: Availability of Care Givers (#Hours): 24 hours Family/Hoop Driving Machine Operator Helper(s) Willingness Assessed to care for patient at home: Yes (pt's present at bedside) Family/Hoop Driving Machine Operator Helper(s) Readiness Assessed to care for patient at [...] and Manage Fall Risk Flowsheets (Taken 07/03/2025 111 by Jing Field, RN) Safety Promotion/Fall Prevention: [...] Infection Flowsheets (Taken 07/03/20251116 by Jing Field, TIERA) Infection Prevention: environmental surveillance performed Goal: Optimal Comfort and Wellbeing Outcome: Ongoing, Progressing Intervention: Monitor Pain and Promote Comfort Flowsheets (Taken 07/03/2025 2227) Pain Management Interventions: medication (see MAR) Intervention: [...] lightweight bedding Taken 07/03/2025 000 by Marielena Munoz RN Infection Management: aseptic [...] Review/Management: medications reviewed Taken 07/03/20255 by Marielena Munoz RN Complementary Therapy: music [...] Ongoing, Progressing Intervention: Promote Activity and Functional [place] Flowsheets (Taken 07/03/20251116 by Jing Field, TIERA) [...] Postoperative Diagnosis: Same Surgeon: Dyllan Paul MD Structures Engineer Surgeon: Sherry Santos MD Intraoperative Findings: Intraoperative [...] chloride, 10 mL, PRN Quentin Anderson MD, [facility], FACP Fitter Tacker Division of Hospital Medicine * Care Plan [...] Ongoing, Progressing Intervention: Promote Activity and Functional [place] Flowsheets (Taken 07/03/20251116) Activity Assistance Provided: assistance, [...] Ongoing, Progressing Intervention: Promote Activity and Functional [place] Flowsheets (Taken 07/03/20255) Activity Assistance Provided: assistance, [...] Anderson MD - 07/02/2025 3:24 PM EDT [facility] MEDICINE PROGRESS NOTE HPI: 70 [...] chloride, 10 mL, PRN Quentin Anderson MD, [facility], FACP Fitter Tacker Division of Hospital Medicine * Care Plan - Jing Field RN - 07/02/2025 10:53 AM EDT Problem: Adult Inpatient Plan of Care Goal: Plan of Care Review Outcome: Ongoing, Progressing Flowsheets Taken 07/02/2025 1045 by Jing Field RN Progress: improving Plan [...] Ongoing, Progressing Intervention: Promote Activity and Functional [place] Flowsheets (Taken 07/02/2025 104) Self-Care Promotion: independence [...] Ongoing, Progressing Intervention: Promote Activity and Functional [place] Flowsheets (Taken 07/01/20252331) Activity Assistance Provided: assistance, [...] Anderson MD - 07/01/2025 2:05 PM EDT [facility] MEDICINE PROGRESS NOTE HPI: 70 [...] chloride, 10 mL, PRN Quentin Anderson MD, [facility], FACP Fitter Tacker Division of Hospital Medicine * Progress Notes - Richa Raymundo RN - 07/01/2025 1:30 PM EDT Case Management Adult Initial Progress Note Scout Lowe 70 y.o. male CSN: [id number] Admission: 06/28/2025 9:28 PM Primary Problem: Sepsis, localized, in operative wound (CMS/HCC) Plate Conditioner reviewed chart and spoke with pt and patient's to complete this Initial Case Management Assessment. PCP: Murray Prajapati MD Emergency Contact: Extended Emergency Contact Information Primary Emergency Contact: JAVON LOWE Mobile Relation: Spouse Counter Manager needed? No Insurance: Primary Visit Coverage Payer Plan Sponsor Code Group Number Group Name DANIKA GARNICA TRADITIONAL/[place]/FED [facility] [id number] Primary Visit Coverage Subscriber Subscriber ID Subscriber Name Subscriber SSN Subscriber Address [id number] JAVON LOWE J [id number] [place] [address] Secondary Visit Coverage Payer Plan Sponsor Code Group Number Group Name MEDICARE MEDICARE PART A ONLY Secondary Visit Coverage Subscriber Subscriber ID Subscriber Name Subscriber SSN Subscriber Address [id number] SCOUT LOWE [phone] [place] [address] Patient information: Primary Caregiver: Self Accompanied by/Relationship: Javon Support System: Immediate family Daily Living Activities: Functional Status: Independent Living Arrangements: Family Type of Residence: Single Level [address] [place] [address] Current DME: Equipment Currently Used at Home: walker, rolling, tub bench Anticipated Discharge Date: TBD Patient's Discharge Goal: to d/c home with his once medically appropriate Assistance Available at Discharge: as needed Discharge Transport: family Follow Up Transport: family Home Health / Home Infusion / Outpatient Dialysis Services: n/a Living Will/Advance Directive/Power of Emergency Medical Technician /Guardian: Have you reviewed your Advance Directive [...] tub bench. Pt's EC is his Javon, ph#[phone]. Pt was evaluated by PT/OT and currently has home w/assist recs and no DME. Per pt his family will provide him with transportation home at d/c and assistance as needed. RN CM will continue to follow and assist with d/c plan and as needed. Richa Raymundo RN * Progress Notes - Bianka Hansen MD - 07/01/2025 11:20 AM EDT [facility] Urology Inpatient Progress Note Primary Attending: Dyllan [...] and pt's adequate urine output. Will con artificial insemination technician stenting pt on if he is not [...] Review Outcome: Ongoing, Progressing Flowsheets (Taken 07/01/2025 075) Progress: improving Outcome Evaluation: patient will have [...] Intervention: Prevent Skin Injury Flowsheets Taken 07/01/2025 075 by Anastasia Starr RN Body Position: heels [...] and Manage Contributors Flowsheets (Taken 06/29/20251737 by Kassadnra Handy RN) Medication Review/Management: medications reviewed Self-Care [...] Ongoing, Progressing Intervention: Promote Activity and Functional [place] Flowsheets Taken 06/30/20251999 by Faby Paige RN [...] pressor support, who presented who presents to [facility] on on 06/28/2025 with chief complaint of [...] kg/m??. - complicates all aspects of care [facility] * Progress Notes - Agatha Cruz, [...] work-up of Sepsis, localized, in operative wound ([facility]). Problem List Active Hospital Problems Diagnosis Date Noted Sepsis, localized, in operative wound ([facility]/HCC) 06/29/2025 UTI (urinary tract infection) 06/29/2025 Hypotension 06/13/2025 Prostate CA (CMS/HCC) 06/12/2025 Cirrhosis of liver (CMS/HCC) 06/12/2025 Leukocytosis 06/12/2025 Hyperlipidemia 06/12/2025 Anemia 06/12/2025 Renal calculi 06/12/2025 Severe obesity (BMI 35.0-39.9) with comorbidity ([facility]/HCC) 06/03/2025 Procedures Past Medical History Patient has [...] a 70 y/o male who presents to [facility] with possible sepsis. Participants in Care Family/Caregiver [...] admission Level of Mobility: Ambulatory- community Mobility Salem: Independent gait without device History of Falls: [...] Mobility Bed Mobility Exam: Scooting/Bridging Level of Salem: Stand-by assist Physical/Nonphysical Assist: Supervision Bed Mobility Exam: Supine to Sit Level of Salem: Stand-by assist Physical/Nonphysical Assist: Supervision Transfers Transfer Exam: Sit to stand Level of Salem: Stand-by assist Assistive Device: Hand held assist Transfer Exam: Stand to Sit Level of Salem: Stand-by assist Physical/Nonphysical Assist: Supervision Assistive Device: [...] Hansen MD - 06/30/2025 1:15 PM EDT [facility] Urology Inpatient Progress Note Primary Attending: Dyllan [...] days Lab Units 06/29/25 0200 COLOR UA Gentry SPEC GRAV U 1.030 PH UA 5.5 [...] work-up of Sepsis, localized, in operative wound ([facility]). Problem List Active Hospital Problems Diagnosis Date Noted Sepsis, localized, in operative wound ([facility]/HCC) 06/29/2025 UTI (urinary tract infection) 06/29/2025 Hypotension 06/13/2025 Prostate CA ([facility]/HCC) 06/12/2025 Cirrhosis of liver ([facility]) 06/12/2025 Leukocytosis 06/12/2025 Hyperlipidemia 06/12/2025 Anemia 06/12/2025 Renal calculi 06/12/2025 Severe obesity (BMI 35.0-39.9) with comorbidity ([facility]) 06/03/2025 Procedures Past Medical History Patient has a past medical history of Cancer ([facility]/HCC) (january 26, 2025), Cirrhosis ([facility]) (2021),History of methicillin resistant Staphylococcus [...] admission Level of Mobility: Ambulatory- community Mobility Salem: Independent gait without device History of Falls: [...] Mobility Bed Mobility Exam: Scooting/Bridging Level of Salem: Stand-by assist Physical/Nonphysical Assist: Supervision Bed Mobility Exam: Supine to Sit Level of Salem: Stand-by assist Physical/Nonphysical Assist: Supervision Transfers Transfer Exam: Sit to stand Level of Salem: Stand-by assist Assistive Device: Hand held assist Transfer Exam: Stand to Sit Level of Salem: Stand-by assist Physical/Nonphysical Assist: Supervision Assistive Device: Hand held assist Functional Mobility Device: No device Assistance: Standby assist Distance : 5 ft. to recliner Self-Care Interventions Lower Extremity Dressing Sock Level of Assistance: Maximum assistance LE Dressing Where Assessed: Bed level Toileting Toileting Adaptive Equipment: Catheterization equipment Toileting Level of Assistance: Dependent Where Assessed: Bed level Toileting Interventions: use of [employer] system Standardized Assessments [facility] 6-Click [...] Injury Intervention: Prevent Infection Flowsheets (Taken 06/29/2025 152 by Tenisha Amador, TIERA) Infection Prevention: environmental surveillance performed Problem: Adult Inpatient Plan of Care Goal: Optimal Comfort and Wellbeing Intervention: Monitor Pain and Promote Comfort Flowsheets (Taken 06/30/2025 023 by Denae Lowe RN) Pain Management Interventions: medication (see MAR) Problem: Adult Inpatient Plan of Care Goal: Optimal Comfort and Wellbeing Intervention: Provide Person-Centered Care Flowsheets (Taken 06/29/2025 152 by Tenisha Amador, TIERA) Trust Relationship/Rapport: care explained Problem: Skin Injury [...] at bedside Sleep/Rest Enhancement: awakenings minimized Taken 06/29/2025 1738 by Kassandra Handy RN Medication Review/Management: medications [...] Care Review Outcome: Ongoing, Progressing Flowsheets (Taken 06/29/2025 1738) Progress: declining Outcome Evaluation: patient and verbalize [...] Risk Flowsheets (Taken 06/29/2025 152 by Tenisha Amador RN) Safety Promotion/Fall Prevention: activity supervised Intervention: Prevent Skin Injury Flowsheets Taken 06/29/20251737 Skin Protection: silicone foam dressing in place Taken 06/29/20251599 Body Position: weight shifting Intervention: Prevent and Manage VTE (Venous Thromboembolism) Risk Flowsheets (Taken 06/29/2025 1600) VTE Prevention/Management: bilateral SCDs (sequential compression devices) on Intervention: Prevent Infection Flowsheets (Taken 06/29/2025 152 by Tenisha Amador, RN) Infection Prevention: environmental surveillance performed Goal: Optimal Comfort and Wellbeing Outcome: Ongoing, Progressing Intervention: Monitor Pain and Promote Comfort Flowsheets (Taken 06/29/2025 152 by Tenisha Amador, RN) Pain Management Interventions: breathing exercises Intervention: Provide Person-Centered Care Flowsheets (Taken 06/29/2025 152 by Teinsha Amador, RN) Trust Relationship/Rapport: care explained Problem: Skin Injury Risk Increased Goal: Skin Health and Integrity Outcome: Ongoing, Progressing Intervention: Optimize Skin Protection Flowsheets Taken 06/29/2025 1738 Pressure Reduction Techniques: frequent weight shift encouraged heels elevated off bed Pressure Reduction Devices: specialty bed utilized Skin Protection: silicone foam dressing in place Taken 06/29/2025 1600 Activity Management: activity adjusted per tolerance Head of Bed (HOB) Positioning: HOB at 30 degrees Intervention: Promote and Optimize Oral Intake Flowsheets Taken 06/29/20251737 by Kassandra Handy RN Nutrition Interventions: supplemental drinks provided Taken 06/29/20251522 by Evely, Tenisha E, RN Oral Nutrition Promotion: social interaction promoted [...] Environment Flowsheets (Taken 06/29/2025 1523 by Tenisha Amador, TIERA) Safety Promotion/Fall Prevention: activity supervised * Consults - Lillian Martin - 06/29/2025 10:25 AM EDTAssociated Order(s): IP CONSULT TO NUTRITION SERVICES Adult Nutrition Evaluation Note Scout Lowe 70 y.o. male CSN: [id number] Room/Bed 205/205 Nutrition evaluation type: assessment Reason [...] 34.69 Weight Evaluation: Obese-Class 1 (BMI 30-34.9) [place] Body Weight (kg): 72.7 Percent [place] Body Weight: 147 Wt Readings from Last [...] Regular Adult Carbohydrate Restriction: Consistent CHO 2 (5586-1768 Duong, 80 g/meal) Fat Restriction: Low fat Modified Calorie/ Protein: High calorie, high protein Diet Experience and Nutrition History: Diet Education Provided: Will monitor Pertinent home medications: Lutheran needs: Nutrition Focused Physical Exam: Unable to [...] since 05/29/25 Location Start Date End Date [facility]) 06/01/25 06/02/25 Allergies: Patient has no known [...] Procedure Component Value Units Date/Time Urine Culture [id number] Collected: 06/29/25 0200 Order Status: Sent Specimen: Urine, Clean Catch Updated: 06/29/25 0401 Blood Culture (Aerobic/Anaerobet Set) [id number] Collected: 06/28/252138 Order Status: Completed Specimen: Blood from Arm, Right Updated: 06/29/25 0009 Culture Culture in lab Blood Culture (Aerobic/Anaerobet Set) [id number] Collected: 06/28/252138 Order Status: Completed Specimen: Blood [...] pressor support, who presented who presents to [facility] on on 06/28/2025 with chief complaint of [...] 750 mg, Oral, 4 times daily PRN vnvmgaukvhkf-zqwo-ehhjogqs-folic acid (Centrum) chewable tablet 1 tablet, Daily [...] Center 07/02/2025 9:10 AM Patricia Strauss APRN [facility] 07/22/2025 7:[address] [facility] 07/22/2025 8:45 AM Dyllan Paul MD [facility] Gutierrez APRN, DNP [1] Past Medical [...] MD Consult ordered by: Kj Santos MD [facility] Urology Consult Note 06/29/25 Service Requesting Consultation: [...] 750 mg, Oral, 4 times daily PRN vwvvchxnrhel-ltec-ezteapdg-folic acid (Centrum) chewable tablet 1 tablet, Daily [...] days Lab Units 06/29/25 0200 COLOR UA Gentry SPEC GRAV U 1.030 PH UA 5.5 PROTEIN UR mg/dL Trace* GLUCOSE UA mg/dL Negative KETONES UA mg/dL Trace* LEUKOCYTES UA Small* NITRITE UA Negative Results from last 7 days Lab Units 06/29/25 0200 COLOR UA Gentry SPEC GRAV U 1.030 PH UA 5.5 [...] Total DLP (Dose-Length Product): 2949.46 mGy.cm (accession [id number]), 2949.46 mGy.cm (accession [id number]). Please note: The reported value represents the [...] fluid Eugene Ruggiero MD Urology PGY-3 Pager: [phone] - I addended plan after rounding with attending Dr. Hilario- MPJorden Hansen MD Department of Urology, PGY-1 Pager: [phone] [1] Past Medical History: Diagnosis Date Cancer [...] Goal: Patient-Specific Goal (Individualized) 06/29/20251524 by Tenisha Amdaor RN Outcome: Ongoing, Progressing 06/29/20251522 by Tenisha [...] ED Medication Summary: ED Medication Administration from 06/28/20252111 to 06/29/2025 0519 Date/Time Order Dose Route [...] at 12.3 [BN] 2350 CMP(!) LALITA with Driver/Refuse Collector 1.49 (already getting IVF repletion). Sodium 131, AST 67, Bili 2.8 [BN] 2351 C-Reactive protein(!) 63.6, similar but slightly higher compared to last draw 6 days prior [BN] 2351 POCT venous blood gas gem(!) Slight lactate elevation at 2.5, alkalosis [BN] [place] Jun 29, 2025 0118 Lymphocytes %: 37 [...] w/u notable for: WBC 24k, LALITA with Driver/Refuse Collector 1.49, Na 131, CRP 63.6, UA with [...] malaise. 100.8 at home. Tylenol 325mg given river boat captain 98.5 in triage, pt 92% on room, pt d/c around 96/97% per . Tachy at 112 BG documented in this encounter Plan of Treatment Upcoming Encounters Date Type Department Care Team (Latest Contact Info) Description 08/22/2025 9:00 AM EDT Office Visit [facility] Nephrology, Bone & Mineral Metabolism [address] [facility], [address] [place] [address] Kathia Watkins MD [address] [place] [id number] 08/28/2025 8:50 AM EDT Hospital Encounter [facility] [address] [place] [address] Dyllan Paul MD [address] [facility] [address] [place] [address] 08/28/2025 8:50 AM EDT Anesthesia Event [facility] RO[facility] [address] [place] [address] Paige Starkey, TORREY [address] [place] [address] 08/28/2025 8:50 AM EDT - 08/28/2025 10:35 AM EDT Surgery [facility]PER[facility] RO[facility] [address] [place] [address] Dyllan Paul MD [address] [place] [address] URETEROSCOPY, WITH LASER LITHOTRIPSY [90253 (CPT )] 10/28/2025 8:00 AM EST Office Visit [facility] [address] [place] [id number] Pavan Aldrich MD [address] [place] [address] Scheduled Procedures Name Priority Associated Diagnoses Date/Ti [...] 07/03/2025 6:12 PM EDT Right ureteral stone NM OPEN BLADDER,REMV CALCULUS 07/03/2025 5:10 PM EDT Right ureteral stone Special Needs Cmax NM CYSTOSCOPY,INSERT URETERAL STENT 07/03/2025 5:10 PM EDT [...] CBC W/O Differential (07/04/2025 5:26 AM EDT) [facility] WBC Count 10.13 3.70 - 10.30 10*3/uL LAB HEMATOLOGY METHOD 07/04/2025 5:[address] [facility] RBC Count 3.46(L) 4.60 - 6.10 10*6/uL LAB HEMATOLOGY METHOD 07/04/2025 5:[address] [facility] HGB 11.3(L) 13.7 - 17.5 g/dL LAB HEMATOLOGY METHOD 07/04/2025 5:[address] [facility] HCT 33.0(L) 40.0 - 51.0 % LAB HEMATOLOGY METHOD 07/04/2025 5:[address] [facility] Platelet Count 114(L) 155 - 369 10*3/uL LAB HEMATOLOGY METHOD 07/04/2025 5:[address] [facility] MCV 95 79 - 98 fL LAB HEMATOLOGY METHOD 07/04/2025 5:[address] [facility] MCH 32.7(H) 26.0 - 32.0 pg LAB HEMATOLOGY METHOD 07/04/2025 5:[address] [facility] MCHC 34.2 30.7 - 35.5 g/dL LAB HEMATOLOGY METHOD 07/04/2025 5:[address] [facility] RDW 15.7(H) 11.5 - 14.5 % LAB HEMATOLOGY METHOD 07/04/2025 5:[address] [facility] MPV 11.0 8.8 - 12.5 fL LAB HEMATOLOGY METHOD 07/04/2025 5:[address] [facility] nRBC 0.0 <=0.0 per 100 WBCs LAB HEMATOLOGY METHOD 07/04/2025 5:[address] [facility] Blood Venous blood specimen / Unknown Venipuncture / Unknown 07/04/2025 5:26 AM EDT 07/04/2025 5:37 AM EDT us Quentin Anderson MD LAB BLOOD ORDERABLES Final Result [facility] [address] [place] [address] * (ABNORMAL) Comprehensive Metabolic Panel, Plasma (07/04/2025 5:26 AM EDT) Glucose, Plasma 147(H) 74 - 99 mg/dL 07/04/2025 6:[address] [facility] BUN, Plasma 41(H) 8 - 23 mg/dL 07/04/2025 6:[address] [facility] [facility] Creatinine, Plasma 1.83(H) 0.70 - 1.20 mg/dL 07/04/2025 6:[address] [facility] BUN/Creatinine Ratio 22 07/04/2025 6:[address] [facility] Sodium, Plasma 127(L) 136 - 145 mmol/L 07/04/2025 6:[address] [facility] Potassium, Plasma 4.3 3.6 - 4.9 mmol/L 07/04/2025 6:[address] [facility] Chloride, Plasma 98 97 - 107 mmol/L 07/04/2025 6:[address] [facility] CO2, Plasma 18(L) 22 - 29 mmol/L 07/04/2025 6:[address] [facility] Anion Gap 11 6 - 16 mmol/L 07/04/2025 6:[address] [facility] Total Calcium, Plasma 7.6(L) 8.9 - 10.2 mg/dL 07/04/2025 6:[address] [facility] Total Protein 4.8(L) 6.3 - 7.9 g/dL 07/04/2025 6:[address] [facility] Albumin, Plasma 2.3(L) 3.5 - 5.2 g/dL 07/04/2025 6:[address] [facility] AST, Plasma 41 10 - 50 U/L 07/04/2025 6:[address] [facility] ALT, Plasma 24 10 - 50 U/L 07/04/2025 6:[address] [facility] Alkaline Phosphatase, Plasma 133(H) 40 - 115 U/L 07/04/2025 6:[address] [facility] Total Bilirubin, Plasma 1.2(H) 0.2 - 1.1 mg/dL 07/04/2025 6:[address] [facility] eGFRcr 39.2 mL/min/1.7 3m*2 07/04/2025 6:[address] [facility] Comment:Reported eGFRcr in m L/min/1.73m2 is based the CKD-EPI 2020 equation that does not use a race coefficient. Blood Venous blood specimen / Unknown Venipuncture / Unknown 07/04/2025 5:26 AM EDT 07/04/2025 5:35 AM EDT us Quentin Anderson MD LAB BLOOD ORDERABLES Final Result [facility] [address] [place] [address] * [place] Less than 1 Hour Intraoperative (07/03/2025 6:15 PM EDT) Narrative IMAGING - 07/03/2025 6:17 PM EDT Images were obtained for surgical purposes. See Dyllan Paul's surgical note in the patient's chart for the findings. Dyllan Paul MD IMG FLUOROSCOPY PROCEDURES Fi nal Result Performing Organization Address City/[facility] Co de Phone Number IMAGING * Calculi (Kidney Stone) Analysis (07/03/2025 6:12 PM EDT) Calculi Mass 807 mg 07/08/2025 6:16 PM EDT [facility] ([facility]) Calculi Description See Note 07/08/2025 6:16 PM EDT [facility] ([facility]) Calculi Composition See Note 07/08/2025 6:16 PM EDT [facility] ([facility]) Calculus Urinary bladder structure / Unknown 07/03/2025 6:12 PM EDT 07/03/2025 6:35 PM EDT Comment:Pre-op diagnosis: Right ureteral stone [N20.1] Narrative [facility] - 07/08/2025 6:16 PM EDT Specimen consists [...] composition determined by FTIR analysis. Performed By: [facility] [address] [place] [address] [employer] Operator: Sotero Banuelos MD, PhD CLIA Number: [id number] us Dyllan Paul MD LAB REF LAB BLOOD AND FLUID O RD Final Result Performing Organization Address [facility]/ZIP Co de Phone Number [facility] ([facility]) [address] [place] [address] * (ABNORMAL) Prothrombin Time/INR (07/03/2025 6:21 AM EDT) Prothrombin Time 21.7(H) 12.0 - 14.3 sec LAB COAGULATION METHOD 07/03/2025 6:[address] [facility] INR 1.9(H) 0.9 - 1.1 LAB COAGULATION METHOD 07/03/2025 6:[address] [facility] Blood Venous blood specimen / Unknown Venipuncture / Unknown 07/03/2025 6:21 AM EDT 07/03/2025 6:[address] [facility] - 07/03/2025 6:47 AM EDT OPTIMAL INR RANGES FOR PATIENT ON ORAL ANTICOAGULANT THERAPY Prevention of venous thromboembolism INR 2.0 to 3.0 In patients with heart disease: Atrial fibrillation INR 2.0 to 3.0 Valvular heart disease INR 2.0 to 3.0 Tissue heart valves INR 2.0 to 3.0 Mechanical prosthetic valves INR 2.5 to 3.5 Prevention of recurrent MD INR 2.5 to 3.5 us Quentin Anderson MD LAB BLOOD ORDERABLES Final Result [facility] [address] [place] [address] * (ABNORMAL) CBC W/O Differential (07/03/2025 6:21 AM EDT) WBC Count 10.55(H) 3.70 - 10.30 10*3/uL LAB HEMATOLOGY METHOD 07/03/2025 6:[address] [facility] RBC Count 3.41(L) 4.60 - 6.10 10*6/uL LAB HEMATOLOGY METHOD 07/03/2025 6:[address] [facility] HGB 11.3(L) 13.7 - 17.5 g/dL LAB HEMATOLOGY METHOD 07/03/2025 6:[address] [facility] HCT 32.2(L) 40.0 - 51.0 % LAB HEMATOLOGY METHOD 07/03/2025 6:[address] [facility] Platelet Count 110(L) 155 - 369 10*3/uL LAB HEMATOLOGY METHOD 07/03/2025 6:[address] [facility] MCV 94 79 - 98 fL LAB HEMATOLOGY METHOD 07/03/2025 6:[address] [facility] MCH 33.1(H) 26.0 - 32.0 pg LAB HEMATOLOGY METHOD 07/03/2025 6:[address] [facility] MCHC 35.1 30.7 - 35.5 g/dL LAB HEMATOLOGY METHOD 07/03/2025 6:[address] [facility] RDW 15.9(H) 11.5 - 14.5 % LAB HEMATOLOGY METHOD 07/03/2025 6:[address] [facility] MPV 11.0 8.8 - 12.5 fL LAB HEMATOLOGY METHOD 07/03/2025 6:[address] [facility] nRBC 0.0 <=0.0 per 100 WBCs LAB HEMATOLOGY METHOD 07/03/2025 6:[address] [facility] Blood Venous blood specimen / Unknown Venipuncture / Unknown 07/03/2025 6:21 AM EDT 07/03/2025 6:30 AM EDT us Quentin Anderson MD LAB BLOOD ORDERABLES Final Result [facility] [address] [place] [address] * (ABNORMAL) Comprehensive Metabolic Panel, Plasma (07/03/2025 6:21 AM EDT) Glucose, Plasma 90 74 - 99 mg/dL 07/03/2025 7:[address] [facility] BUN, Plasma 36(H) 8 - 23 mg/dL 07/03/2025 7:[address] [facility] Creatinine, Plasma 1.54(H) 0.70 - 1.20 mg/dL 07/03/2025 7:[address] [facility] BUN/Creatinine Ratio 23 07/03/2025 7:[address] [facility] Sodium, Plasma 128(L) 136 - 145 mmol/L 07/03/2025 7:[address] [facility] Potassium, Plasma 3.8 3.6 - 4.9 mmol/L 07/03/2025 7:[address] [facility] Chloride, Plasma 98 97 - 107 mmol/L 07/03/2025 7:[address] [facility] CO2, Plasma 19(L) 22 - 29 mmol/L 07/03/2025 7:[address] [facility] Anion Gap 11 6 - 16 mmol/L 07/03/2025 7:[address] [facility] Total Calcium, Plasma 7.5(L) 8.9 - 10.2 mg/dL 07/03/2025 7:[address] [facility] Total Protein 4.8(L) 6.3 - 7.9 g/dL 07/03/2025 7:[address] [facility] Albumin, Plasma 2.2(L) 3.5 - 5.2 g/dL 07/03/2025 7:[address] [facility] AST, Plasma 42 10 - 50 U/L 07/03/2025 7:[address] [facility] Comment:Hemolyzed, result ma y be falsely increased. ALT, Plasma 24 10 - 50 U/L 07/03/2025 7:[address] [facility] Alkaline Phosphatase, Plasma 128(H) 40 - 115 U/L 07/03/2025 7:[address] [facility] Total Bilirubin, Plasma 1.4(H) 0.2 - 1.1 mg/dL 07/03/2025 7:[address] [facility] eGFRcr 48.2 mL/min/1.7 3m*2 07/03/2025 7:[address] [facility] Comment:Reported eGFRcr in m L/min/1.73m2 is based the CKD-EPI 2020 equation that does not use a race coefficient. Blood Venous blood specimen / Unknown Venipuncture / Unknown 07/03/2025 6:21 AM EDT 07/03/2025 6:30 AM EDT us Quentin Anderson MD LAB BLOOD ORDERABLES Final Result [facility] [address] [place] [address] * (ABNORMAL) Comprehensive Metabolic Panel, Plasma (07/02/2025 5:01 AM EDT) Glucose, Plasma 93 74 - 99 mg/dL 07/02/2025 6:[address] [facility] BUN, Plasma 31(H) 8 - 23 mg/dL 07/02/2025 6:[address] [facility] Creatinine, Plasma 1.34(H) 0.70 - 1.20 mg/dL 07/02/2025 6:[address] [facility] BUN/Creatinine Ratio 23 07/02/2025 6:[address] [facility] Sodium, Plasma 129(L) 136 - 145 mmol/L 07/02/2025 6:[address] [facility] Potassium, Plasma 3.7 3.6 - 4.9 mmol/L 07/02/2025 6:[address] [facility] Chloride, Plasma 102 97 - 107 mmol/L 07/02/2025 6:[address] [facility] CO2, Plasma 20(L) 22 - 29 mmol/L 07/02/2025 6:[address] [facility] Anion Gap 7 6 - 16 mmol/L 07/02/2025 6:[address] [facility] Total Calcium, Plasma 7.1(L) 8.9 - 10.2 mg/dL 07/02/2025 6:[address] [facility] Total Protein 4.7(L) 6.3 - 7.9 g/dL 07/02/2025 6:[address] [facility] Albumin, Plasma 2.2(L) 3.5 - 5.2 g/dL 07/02/2025 6:[address] [facility] AST, Plasma 37 10 - 50 U/L 07/02/2025 6:[address] [facility] ALT, Plasma 26 10 - 50 U/L 07/02/2025 6:[address] [facility] Alkaline Phosphatase, Plasma 114 40 - 115 U/L 07/02/2025 6:[address] [facility] Total Bilirubin, Plasma 1.7(H) 0.2 - 1.1 mg/dL 07/02/2025 6:[address] [facility] eGFRcr 57.0 mL/min/1.7 3m*2 07/02/2025 6:[address] [facility] Comment:Reported eGFRcr in m L/min/1.73m2 is based the CKD-EPI 2020 equation that does not use a race coefficient. Blood Venous blood specimen / Unknown Venipuncture / Unknown 07/02/2025 5:01 AM EDT 07/02/2025 5:12 AM EDT us Quentin Anderson MD LAB BLOOD ORDERABLES Final Result [facility] [address] [place] [address] * (ABNORMAL) CBC and Differential (07/01/2025 4:59 AM EDT) WBC Count 14.93(H) 3.70 - 10.30 10*3/uL LAB HEMATOLOGY METHOD 07/01/2025 5:[address] [facility] RBC Count 3.42(L) 4.60 - 6.10 10*6/uL LAB HEMATOLOGY METHOD 07/01/2025 5:[address] [facility] HGB 11.1(L) 13.7 - 17.5 g/dL LAB HEMATOLOGY METHOD 07/01/2025 5:[address] [facility] HCT 32.6(L) 40.0 - 51.0 % LAB HEMATOLOGY METHOD 07/01/2025 5:[address] [facility] Platelet Count 112(L) 155 - 369 10*3/uL LAB HEMATOLOGY METHOD 07/01/2025 5:[address] [facility] MCV 95 79 - 98 fL LAB HEMATOLOGY METHOD 07/01/2025 5:[address] [facility] MCH 32.5(H) 26.0 - 32.0 pg LAB HEMATOLOGY METHOD 07/01/2025 5:[address] [facility] MCHC 34.0 30.7 - 35.5 g/dL LAB HEMATOLOGY METHOD 07/01/2025 5:[address] [facility] RDW 15.8(H) 11.5 - 14.5 % LAB HEMATOLOGY METHOD 07/01/2025 5:[address] [facility] MPV 11.2 8.8 - 12.5 fL LAB HEMATOLOGY METHOD 07/01/2025 5:[address] [facility] nRBC 0.1(H) <=0.0 per 100 WBCs LAB HEMATOLOGY METHOD 07/01/2025 5:[address] [facility] Differential Type Automated LAB HEMATOLOGY METHOD 07/01/2025 5:[address] [facility] Neutrophils % 54 % LAB HEMATOLOGY METHOD 07/01/2025 5:[address] [facility] Lymphocytes % 30 % LAB HEMATOLOGY METHOD 07/01/2025 5:[address] [facility] Monocytes % 9 % LAB HEMATOLOGY METHOD 07/01/2025 5:[address] [facility] Eosinophils % 5 % LAB HEMATOLOGY METHOD 07/01/2025 5:[address] [facility] Basophils % 1 % LAB HEMATOLOGY METHOD 07/01/2025 5:[address] [facility] Immature Granulocytes % 1 % LAB HEMATOLOGY METHOD 07/01/2025 5:[address] [facility] Neutrophils Absolute 8.14(H) 1.60 - 6.10 10*3/uL LAB HEMATOLOGY METHOD 07/01/2025 5:[address] [facility] Lymphocytes Absolute 4.47(H) 1.20 - 3.90 10*3/uL LAB HEMATOLOGY METHOD 07/01/2025 5:[address] [facility] Monocytes Absolute 1.40(H) 0.30 - 0.90 10*3/uL LAB HEMATOLOGY METHOD 07/01/2025 5:[address] [facility] Eosinophils Absolute 0.74(H) 0.00 - 0.50 10*3/uL LAB HEMATOLOGY METHOD 07/01/2025 5:[address] [facility] Basophils Absolute 0.08 0.00 - 0.10 10*3/uL LAB HEMATOLOGY METHOD 07/01/2025 5:[address] [facility] Immature Granulocytes Absolute 0.10(H) 0.00 - 0.06 10*3/uL LAB HEMATOLOGY METHOD 07/01/2025 5:[address] [facility] Blood Venous blood specimen / Unknown Venipuncture / Unknown 07/01/2025 4:59 AM EDT 07/01/2025 5:[address] [facility] - 07/01/2025 5:17 AM EDT Therapeutic decision making should be based on absolute values, rather than percentages. Lizzie Biggs MD LAB BLOOD ORDERABLES Fi nal Result [facility] [address] [place] [address] * (ABNORMAL) Comprehensive Metabolic Panel, Plasma (07/01/2025 4:59 AM EDT) Glucose, Plasma 106(H) 74 - 99 mg/dL 07/01/2025 5:[address] [facility] BUN, Plasma 28(H) 8 - 23 mg/dL 07/01/2025 5:[address] [facility] Creatinine, Plasma 1.31(H) 0.70 - 1.20 mg/dL 07/01/2025 5:[address] [facility] BUN/Creatinine Ratio 21 07/01/2025 5:[address] [facility] Sodium, Plasma 128(L) 136 - 145 mmol/L 07/01/2025 5:[address] [facility] Potassium, Plasma 4.2 3.6 - 4.9 mmol/L 07/01/2025 5:[address] [facility] Chloride, Plasma 98 97 - 107 mmol/L 07/01/2025 5:[address] [facility] CO2, Plasma 20(L) 22 - 29 mmol/L 07/01/2025 5:[address] [facility] Anion Gap 10 6 - 16 mmol/L 07/01/2025 5:[address] [facility] Total Calcium, Plasma 7.5(L) 8.9 - 10.2 mg/dL 07/01/2025 5:[address] [facility] Total Protein 4.8(L) 6.3 - 7.9 g/dL 07/01/2025 5:[address] [facility] Albumin, Plasma 2.3(L) 3.5 - 5.2 g/dL 07/01/2025 5:[address] [facility] AST, Plasma 38 10 - 50 U/L 07/01/2025 5:[address] [facility] Comment:Hemolyzed, result ma y be falsely increased. ALT, Plasma 31 10 - 50 U/L 07/01/2025 5:[address] [facility] Alkaline Phosphatase, Plasma 124(H) 40 - 115 U/L 07/01/2025 5:[address] [facility] Total Bilirubin, Plasma 2.1(H) 0.2 - 1.1 mg/dL 07/01/2025 5:[address] [facility] eGFRcr 58.6 mL/min/1.7 3m*2 07/01/2025 5:[address] [facility] Comment:Reported eGFRcr in m L/min/1.73m2 is based the CKD-EPI 2020 equation that does not use a race coefficient. Blood Venous blood specimen / Unknown Venipuncture / Unknown 07/01/2025 4:59 AM EDT 07/01/2025 5:06 AM EDT Lizzie Biggs MD LAB BLOOD ORDERABLES Fi nal Result [facility] [address] [place] [address] * (ABNORMAL) Magnesium, Plasma (07/01/2025 4:59 AM EDT) Magnesium, Plasma 2.7(H) 1.9 - 2.4 mg/dL 07/01/2025 5:[address] [facility] Blood Venous blood specimen / Unknown Venipuncture / Unknown 07/01/2025 4:59 AM EDT 07/01/2025 5:06 AM EDT Lizzie Biggs MD LAB BLOOD ORDERABLES Fi nal Result Performing Organization Address [facility] Co de Phone Number [facility] [address] [place] [address] * Phosphorus, Plasma (07/01/2025 4:59 AM EDT) Phosphorus, Plasma 3.0 2.5 - 4.5 mg/dL 07/01/2025 5:[address] [facility] Blood Venous blood specimen / Unknown Venipuncture / Unknown 07/01/2025 4:59 AM EDT 07/01/2025 5:06 AM EDT us Lizzie Biggs MD LAB BLOOD ORDERABLES Fi nal Result Performing Organization Address City/[facility]/ZIP Co de Phone Number [facility] [address] [place] [address] * Urinalysis Microscopic Examination (06/30/2025 6:20 PM EDT) Urine Urine specimen obtained by clean catch procedure / Unknown Non-blood Collection / Unknown 06/30/2025 6:20 PM EDT 06/30/2025 6:52 PM EDT us Lizzie Biggs MD LAB URINE ORDERABLES Fi nal Result Performing Organization Address City/[facility]/ZIP Co de Phone Number [facility] [address] [place] [address] * (ABNORMAL) Urinalysis with reflex microscopic (Culture NOT Included) (06/30/2025 6:20 PM EDT) Color, Urine Dark Yellow LAB URINALYSIS - AUTOMATED METHOD 06/30/2025 7:[address] [facility] Clarity, Urine Cloudy LAB URINALYSIS - AUTOMATED METHOD 06/30/2025 7:[address] [facility] Spec Success, Urine >1.030(H) 1.005 - 1.030 LAB URINALYSIS - AUTOMATED METHOD 06/30/2025 7:[address] [facility] pH, Urine 6.0 5.0 - 8.0 LAB URINALYSIS - AUTOMATED METHOD 06/30/2025 7:[address] [facility] Protein, Urine 30(A) Negative mg/dL LAB URINALYSIS - AUTOMATED METHOD 06/30/2025 7:[address] [facility] Glucose, Urine Negative Negative mg/dL LAB URINALYSIS - AUTOMATED METHOD 06/30/2025 7:[address] [facility] Ketones, Urine Trace(A) Negative mg/dL LAB URINALYSIS - AUTOMATED METHOD 06/30/2025 7:[address] [facility] Blood, Urine Moderate(A) Negative LAB URINALYSIS - AUTOMATED METHOD 06/30/2025 7:[address] [facility] Bilirubin, Urine Small(A) Negative LAB URINALYSIS - AUTOMATED METHOD 06/30/2025 7:[address] [facility] Urobilinogen, Urine 1.0 0.2 to 1.0 mg/dL LAB URINALYSIS - AUTOMATED METHOD 06/30/2025 7:[address] [facility] Leukocytes, Urine Moderate(A) Negative LAB URINALYSIS - AUTOMATED METHOD 06/30/2025 7:[address] [facility] Nitrite, Urine Negative Negative LAB URINALYSIS - AUTOMATED METHOD 06/30/2025 7:[address] [facility] RBC, Urine >50(A) 0 to 3 /HPF LAB URINALYSIS - AUTOMATED METHOD 06/30/2025 7:[address] [facility] WBC, Urine 21 - 50(A) 0 to 5 /HPF LAB URINALYSIS - AUTOMATED METHOD 06/30/2025 7:[address] [facility] Squamous Epithelial Cells 0 - 2 0 to 5 /HPF LAB URINALYSIS - AUTOMATED METHOD 06/30/2025 7:[address] [facility] Hyaline Casts 6 - 10(A) 0 to 5 /LPF LAB URINALYSIS - AUTOMATED METHOD 06/30/2025 7:[address] [facility] Bacteria, Urine Present Negative LAB URINALYSIS - AUTOMATED METHOD 06/30/2025 7:[address] [facility] Renal Tubular Cells Present Absent 06/30/2025 7:[address] [facility] Yeast (Budding and/or Pseudohyphae) Present(A) Absent 06/30/2025 7:[address] [facility] Urine Urine specimen obtained by clean catch procedure / Unknown Non-blood Collection / Unknown 06/30/2025 6:20 PM EDT 06/30/2025 6:[address] [facility] - 06/30/2025 7:28 PM EDT Performed by manual method Lizzie Biggs MD LAB URINE ORDERABLES Fi nal Result Performing Organization Address City/[facility]/ZIP Co de Phone Number [facility] [address] [place] [address] * Lactate, venous (06/30/2025 3:11 PM EDT) Lactate, Venous, Whole Blood 1.4 0.5 - 2.2 mmol/L LAB HEMATOLOGY METHOD 06/30/2025 3:[address] [facility] Blood Venous blood specimen / Unknown Venipuncture / Unknown 06/30/2025 3:11 PM EDT 06/30/2025 3:23 PM EDT Lizzie Biggs MD LAB BLOOD ORDERABLES Fi nal Result [facility] [address] [place] [address] * Phosphorus, Plasma (06/30/2025 3:11 PM EDT) Pathologist [facility] Phosphorus, Plasma 3.0 2.5 - 4.5 mg/dL 06/30/2025 4:[address] [facility] Blood Venous blood specimen / Unknown Venipuncture / Unknown 06/30/2025 3:11 PM EDT 06/30/2025 3:34 PM EDT Lizzie Biggs MD LAB BLOOD ORDERABLES Fi nal Result [facility] [address] [place] [address] * (ABNORMAL) CBC and Differential (06/30/2025 3:11 PM EDT) [facility] WBC Count 15.42(H) 3.70 - 10.30 10*3/uL LAB HEMATOLOGY METHOD 06/30/2025 7:[address] [facility] RBC Count 2.92(L) 4.60 - 6.10 10*6/uL LAB HEMATOLOGY METHOD 06/30/2025 7:[address] [facility] HGB 9.6(L) 13.7 - 17.5 g/dL LAB HEMATOLOGY METHOD 06/30/2025 7:[address] [facility] HCT 28.0(L) 40.0 - 51.0 % LAB HEMATOLOGY METHOD 06/30/2025 7:[address] [facility] Platelet Count 100(L) 155 - 369 10*3/uL LAB HEMATOLOGY METHOD 06/30/2025 7:[address] [facility] MCV 96 79 - 98 fL LAB HEMATOLOGY METHOD 06/30/2025 7:[address] [facility] MCH 32.9(H) 26.0 - 32.0 pg LAB HEMATOLOGY METHOD 06/30/2025 7:[address] [facility] MCHC 34.3 30.7 - 35.5 g/dL LAB HEMATOLOGY METHOD 06/30/2025 7:[address] [facility] RDW 15.9(H) 11.5 - 14.5 % LAB HEMATOLOGY METHOD 06/30/2025 7:[address] [facility] MPV 12.0 8.8 - 12.5 fL LAB HEMATOLOGY METHOD 06/30/2025 7:[address] [facility] nRBC 0.5(H) <=0.0 per 100 WBCs LAB HEMATOLOGY METHOD 06/30/2025 7:[address] [facility] Differential Type Automated LAB HEMATOLOGY METHOD 06/30/2025 7:[address] [facility] Neutrophils % 51 % LAB HEMATOLOGY METHOD 06/30/2025 7:[address] [facility] Lymphocytes % 34 % LAB HEMATOLOGY METHOD 06/30/2025 7:[address] [facility] Monocytes % 9 % LAB HEMATOLOGY METHOD 06/30/2025 7:[address] [facility] Eosinophils % 4 % LAB HEMATOLOGY METHOD 06/30/2025 7:[address] [facility] Basophils % 1 % LAB HEMATOLOGY METHOD 06/30/2025 7:[address] [facility] Immature Granulocytes % 1 % LAB HEMATOLOGY METHOD 06/30/2025 7:[address] [facility] Neutrophils Absolute 8.05(H) 1.60 - 6.10 10*3/uL LAB HEMATOLOGY METHOD 06/30/2025 7:[address] [facility] Lymphocytes Absolute 5.22(H) 1.20 - 3.90 10*3/uL LAB HEMATOLOGY METHOD 06/30/2025 7:[address] [facility] Monocytes Absolute 1.32(H) 0.30 - 0.90 10*3/uL LAB HEMATOLOGY METHOD 06/30/2025 7:[address] [facility] Eosinophils Absolute 0.68(H) 0.00 - 0.50 10*3/uL LAB HEMATOLOGY METHOD 06/30/2025 7:[address] [facility] Basophils Absolute 0.07 0.00 - 0.10 10*3/uL LAB HEMATOLOGY METHOD 06/30/2025 7:[address] [facility] Immature Granulocytes Absolute 0.08(H) 0.00 - 0.06 10*3/uL LAB HEMATOLOGY METHOD 06/30/2025 7:[address] [facility] Blood Venous blood specimen / Unknown Venipuncture / Unknown 06/30/2025 3:11 PM EDT 06/30/2025 3:[address] [facility] - 06/30/2025 7:40 PM EDT Therapeutic decision making should be based on absolute values, rather than percentages. Lizzie Biggs MD LAB BLOOD ORDERABLES Fi nal Result [facility] [address] [place] [address] * (ABNORMAL) Basic Metabolic Panel, Plasma (06/30/2025 3:11 PM EDT) Glucose, Plasma 101(H) 74 - 99 mg/dL 06/30/2025 4:[address] [facility] BUN, Plasma 25(H) 8 - 23 mg/dL 06/30/2025 4:[address] [facility] Creatinine, Plasma 1.08 0.70 - 1.20 mg/dL 06/30/2025 4:[address] [facility] BUN/Creatinine Ratio 23 06/30/2025 4:[address] [facility] Sodium, Plasma 130(L) 136 - 145 mmol/L 06/30/2025 4:[address] [facility] Potassium, Plasma 3.2(L) 3.6 - 4.9 mmol/L 06/30/2025 4:[address] [facility] Chloride, Plasma 111(H) 97 - 107 mmol/L 06/30/2025 4:[address] [facility] CO2, Plasma 18(L) 22 - 29 mmol/L 06/30/2025 4:[address] [facility] Anion Gap 1(L) 6 - 16 mmol/L 06/30/2025 4:[address] [facility] Total Calcium, Plasma 6.3(L) 8.9 - 10.2 mg/dL 06/30/2025 4:[address] [facility] eGFRcr 73.8 mL/min/1.7 3m*2 06/30/2025 4:[address] [facility] Comment:Reported eGFRcr in m L/min/1.73m2 is based the CKD-EPI 2020 equation that does not use a race coefficient. Blood Venous blood specimen / Unknown Venipuncture / Unknown 06/30/2025 3:11 PM EDT 06/30/2025 3:34 PM EDT Lizzie Biggs MD LAB BLOOD ORDERABLES Fi nal Result Performing Organization Address City/[facility]/[place] [address] * (ABNORMAL) Magnesium, Plasma (06/30/2025 3:11 PM EDT) Magnesium, Plasma 1.7(L) 1.9 - 2.4 mg/dL 06/30/2025 4:[address] [facility] Blood Venous blood specimen / Unknown Venipuncture / Unknown 06/30/2025 3:11 PM EDT 06/30/2025 3:34 PM EDT Lizzie Biggs MD LAB BLOOD ORDERABLES Fi nal Result Performing Organization Address [facility]/[place] [address] * Vancomycin, random (06/30/2025 12:48 PM EDT) Vancomycin, Random, Plasma 13.3 ug/mL 06/30/2025 3:[address] [facility] Blood Venous blood specimen / Unknown Venipuncture / Unknown 06/30/2025 12:48 PM EDT 06/30/2025 12:58 PM EDT Jennifer Mcgrath MD LAB BLOOD ORDERABLES Final Resu lt Performing Organization Address City/[facility] [place] [address] * (ABNORMAL) Cystatin C (06/30/2025 6:01 AM EDT) Cystatin C 1.58(H) 0.61 - 0.95 mg/L 06/30/2025 6:[address] [facility] Blood Venous blood specimen / Unknown Venipuncture / Unknown 06/30/2025 6:01 AM EDT 06/30/2025 6:10 AM EDT us Lizzie Biggs MD LAB BLOOD ORDERABLES Fi nal Result Performing Organization Address City/[facility] Center/ZIP Co de Phone Number [facility] [address] [place] [address] * (ABNORMAL) Ammonia, Plasma (06/30/2025 6:01 AM EDT) Ammonia 64(H) 11 - 51 umol/L 06/30/2025 6:[address] [facility] Comment:Improper specimen marquez ndling may falsely increase results. Blood Venous blood specimen / Unknown Venipuncture / Unknown 06/30/2025 6:01 AM EDT 06/30/2025 6:08 AM EDT us Homeroheather Gutierrez APRN, DNP LAB BLOOD ORDERAB LES Final Result Performing Organization Address [facility] Co de Phone Number [facility] [address] [place] [address] * Sedimentation Rate, Automated (06/30/2025 6:01 AM EDT) Sedimentation Rate 17 <20 mm/hr 2024 6:[address] [facility] Blood Venous blood specimen / Unknown Venipuncture / Unknown 06/30/2025 6:01 AM EDT 06/30/2025 6:11 AM EDT us Homero N Matt POLICY WRITER TYPIST, DNP LAB BLOOD ORDERAB LES Final Result Performing Organization Address City/[facility]/ZIP Co de Phone Number [facility] [address] [place] [address] * Vancomycin, random (06/29/2025 6:05 PM EDT) Vancomycin, Random, Plasma 15.4 ug/mL 06/29/2025 6:[address] [facility] Blood Venous blood specimen / Unknown Venipuncture / Unknown 06/29/2025 6:05 PM EDT 06/29/2025 6:15 PM EDT us Lizzie Biggs MD LAB BLOOD ORDERABLES Fi nal Result [facility] [address] [place] [address] * US Abdomen Focused Region Liver, Pancreas, [...] 06/29/2025 3:58 PM us Lizzie Biggs MD IM US PROCEDURES Final Result * Creatinine, urine, random (06/29/2025 12:10 PM EDT) Creatinine, Urine 182 mg/dL 06/29/2025 1:[address] [facility] Urine Urine specimen obtained by clean catch procedure / Unknown Non-blood Collection / Unknown 06/29/2025 12:10 PM EDT 06/29/2025 12:37 PM EDT Homero Moiz Gutierrez POLICY WRITER TYPIST, DNP LAB URINE ORDERAB LES Final Result [facility] [address] [place] [address] * Urea nitrogen, urine (06/29/2025 12:10 PM EDT) Urea Nitrogen, Urine 865 mg/dL 06/29/2025 1:[address] [facility] Urine Urine specimen obtained by clean catch procedure / Unknown Non-blood Collection / Unknown 06/29/2025 12:10 PM EDT 06/29/2025 12:37 PM EDT Homeroheather Gutierrez APRN, DNP LAB URINE ORDERAB LES Final Result Performing Organization Address City/[facility]/ZIP Co de Phone Number [facility] [address] [place] [address] * Methicillin Resistant Staphylococcus aureus (MRSA) by PCR (06/29/2025 9:39 AM EDT) Methicillin Resistant Staphylococcus aureus (MRSA) by PCR Not Detected Not Detected 06/29/2025 12:[address] [facility] Swab Both anterior nares / Unknown Non-blood Collection / Unknown 06/29/2025 9:39 AM EDT 06/29/2025 10:[address] [facility] - 06/29/2025 12:04 PM EDT [...] GENERAL ORDERABLES Final Result Performing Organization Address City/[facility]/ZIP Co de Phone Number [facility] [address] [place] [address] * (ABNORMAL) Wound Culture and Gram Stain (06/29/2025 9:39 AM EDT) CULTURE READING WOUND Light Growth 07/02/2025 12:[address] [facility] CULTURE READING WOUND Staphylococcus epidermidis(A) 07/02/2025 12:[address] [facility] Comment: This isolate has been identified using the FDA Approved [employer] [place] System The organism value for this result has been updated. These results have been appended to the previously preliminary verified report. Edited result: Previously reported as Gram positive cocci on 07/01/2025 at 0744 EDT. Gram Stain Result Numerous Polymorphonuclear leukocytes(A) 07/02/2025 12:[address] [facility] Gram Stain Result Rare Gram negative rods(A) 07/02/2025 12:[address] [facility] Swab Skin structure / Unknown Non-blood Collection / Unknown 06/29/2025 9:39 AM EDT 06/29/2025 2:57 PM EDT Homero Gutierrez APRN, DNP LAB MICROBIOLOGY - GENERAL ORDERABLES Final Result Performing Organization Address City/[facility]/ZIP Co de Phone Number [facility] [address] [place] [address] * Multi Drug Resistance Test (06/29/2025 9:39 AM EDT) Culture No growth at day 1 06/30/2025 4:[address] [facility] Swab (Nares and Cari Rectal) Non-blood Collection / Unknown 06/29/2025 9:39 AM EDT 06/29/2025 10:[address] [facility] - 06/30/2025 4:16 PM EDT This test was developed and its performance characteristics determined by the [facility]. Although the media is FDA-approved, it is not FDA-approved for all specimen types submitted. The FDA has determined that such clearance or approval is not necessary. This test is used for surveillance purposes. It should not be regarded as investigational or for research. The [facility] is certified under the Clinical Laboratory Improvement Amendments of 1988 (CLIA-88) as qualified to perform high complexity clinical laboratory testing. Homero Gutierrez APRN, DNP LAB MICROBIOLOGY - GENERAL ORDERABLES Final Result Performing Organization Address City/[facility] [place] [address] * (ABNORMAL) GGT (06/29/2025 6:52 AM EDT) GGT, Plasma 116(H) 8 - 61 U/L 06/29/2025 8:[address] [facility] Blood Venous blood specimen / Unknown Venipuncture / Unknown 06/29/2025 6:52 AM EDT 06/29/2025 6:56 AM EDT Homero Gutierrez APRN, DNP LAB BLOOD ORDERAB LES Final Result Performing Organization Address City/[facility] Co de Phone Number [facility] [address] [place] [address] * (ABNORMAL) Ionized calcium, whole blood (06/29/2025 6:52 AM EDT) Ionized Calcium, Whole Blood 4.1(L) 4.6 - 5.1 mg/dL LAB HEMATOLOGY METHOD 06/29/2025 7:[address] [facility] Blood Venous blood specimen / Unknown Venipuncture / Unknown 06/29/2025 6:52 AM EDT 06/29/2025 6:55 AM EDT us Homero N Matt POLICY WRITER TYPIST, DNP LAB BLOOD ORDERAB LES Final Result [facility] [address] [place] [address] * (ABNORMAL) Procalcitonin (06/29/2025 6:52 AM EDT) Procalcitonin, Plasma 2.47(H) <0.09 ng/mL 06/29/2025 7:[address] [facility] Blood Venous blood specimen / Unknown Venipuncture / Unknown 06/29/2025 6:52 AM EDT 06/29/2025 6:[address] [facility] - 06/29/2025 7:27 AM EDT [...] predict 28 day mortality risk. Please consult www.itgkjf-mmz-llhjhnqunx.com for more information. Test performed at [facility]. us Homerocrow Gutierrez APRN, DNP LAB BLOOD ORDERAB LES Final Result [facility] [address] [place] [address] * (ABNORMAL) Cystatin C (06/29/2025 6:52 AM EDT) Cystatin C 1.5(H) 0.61 - 0.95 mg/L 06/29/2025 8:[address] [facility] Blood Venous blood specimen / Unknown Venipuncture / Unknown 06/29/2025 6:52 AM EDT 06/29/2025 6:56 AM EDT Homero Gutierrez APRN, DNP LAB BLOOD ORDERAB LES Final Result [facility] [address] [place] [address] * (ABNORMAL) Basic metabolic panel (06/29/2025 6:52 AM EDT) Pathologist [facility] Glucose, Plasma 116(H) 74 - 99 mg/dL 06/29/2025 7:[address] [facility] BUN, Plasma 24(H) 8 - 23 mg/dL 06/29/2025 7:[address] [facility] Creatinine, Plasma 1.39(H) 0.70 - 1.20 mg/dL 06/29/2025 7:[address] [facility] BUN/Creatinine Ratio 17 06/29/2025 7:[address] [facility] Sodium, Plasma 131(L) 136 - 145 mmol/L 06/29/2025 7:[address] [facility] Potassium, Plasma 3.8 3.6 - 4.9 mmol/L 06/29/2025 7:[address] [facility] Chloride, Plasma 99 97 - 107 mmol/L 06/29/2025 7:[address] [facility] CO2, Plasma 22 22 - 29 mmol/L 06/29/2025 7:[address] [facility] Anion Gap 10 6 - 16 mmol/L 06/29/2025 7:[address] [facility] Total Calcium, Plasma 7.6(L) 8.9 - 10.2 mg/dL 06/29/2025 7:[address] [facility] eGFRcr 54.5 mL/min/1.7 3m*2 06/29/2025 7:[address] [facility] Comment:Reported eGFRcr in m L/min/1.73m2 is based the CKD-EPI 2020 equation that does not use a race coefficient. Blood Venous blood specimen / Unknown Venipuncture / Unknown 06/29/2025 6:52 AM EDT 06/29/2025 6:56 AM EDT us Homero Gutierrez APRN, DNP LAB BLOOD ORDERAB LES Final Result Performing Organization Address City/[facility] Co de Phone Number [facility] [address] [place] [address] * Lactate, venous (06/29/2025 6:52 AM EDT) Lactate, Venous, Whole Blood 1.5 0.5 - 2.2 mmol/L LAB HEMATOLOGY METHOD 06/29/2025 6:[address] [facility] Blood Venous blood specimen / Unknown Venipuncture / Unknown 06/29/2025 6:52 AM EDT 06/29/2025 6:55 AM EDT us Homero Gutierrez APRN, DNP LAB BLOOD ORDERAB LES Final Result Performing Organization Address [facility] Co de Phone Number [facility] [address] [place] [address] * SEND SELIN MESSAGE (06/29/2025 2:00 AM EDT) Urine Urine specimen obtained by clean catch procedure / Unknown Non-blood Collection / Unknown 06/29/2025 2:00 AM EDT 06/29/2025 2:22 AM EDT us Rg Coleman MD LAB URINE ORDERABLES Final Res ult Performing Organization Address City/[facility] Co de Phone Number [facility] [address] [place] [address] * (ABNORMAL) Urine Culture (06/29/2025 2:00 AM EDT) Culture 10,000 - 100,000 CFU/mL Diutina rugosa (formerly Celestina rugosa)(A) 07/02/2025 8:[address] [facility] Comment:This result was dete rmined by [employer] tof mass spectrometry using the [employer] database and is for research use only. Urine Urine specimen obtained by clean catch procedure / Unknown Non-blood Collection / Unknown 06/29/2025 2:00 AM EDT 06/29/2025 2:22 AM EDT us Rg Coleman MD LAB MICROBIOLOGY - GENERAL ORD ERABLES Final Result Performing Organization Address [facility] Co de Phone Number [facility] [address] [place] [address] * Urinalysis Microscopic Examination (06/29/2025 2:00 AM EDT) Urine Urine specimen obtained by clean catch procedure / Unknown Non-blood Collection / Unknown 06/29/2025 2:00 AM EDT 06/29/2025 2:04 AM EDT us Rg Coleman MD LAB URINE ORDERABLES Final Res ult Performing Organization Address [facility] Co de Phone Number [facility] [address] [place] [address] * Urine Salcedo Panel (06/29/2025 2:00 AM EDT) Extra Sent for Culture 06/29/2025 4:[address] [facility] Urine Urine specimen obtained by clean catch procedure / Unknown Non-blood Collection / Unknown 06/29/2025 2:00 AM EDT 06/29/2025 2:22 AM EDT us Rg Coelman MD LAB URINE ORDERABLES Final Res ult Performing Organization Address [facility] de Phone Number [facility] [address] [place] [address] * (ABNORMAL) Urinalysis with reflex microscopic (Culture NOT Included) (06/29/2025 2:00 AM EDT) Color, Urine Gentry LAB URINALYSIS - AUTOMATED METHOD 06/29/2025 3:[address] [facility] Clarity, Urine Cloudy LAB URINALYSIS - AUTOMATED METHOD 06/29/2025 3:[address] [facility] Spec Success, Urine 1.030 1.005 - 1.030 LAB URINALYSIS - AUTOMATED METHOD 06/29/2025 3:[address] [facility] pH, Urine 5.5 5.0 - 8.0 LAB URINALYSIS - AUTOMATED METHOD 06/29/2025 3:[address] [facility] Protein, Urine Trace(A) Negative mg/dL LAB URINALYSIS - AUTOMATED METHOD 06/29/2025 3:[address] [facility] Glucose, Urine Negative Negative mg/dL LAB URINALYSIS - AUTOMATED METHOD 06/29/2025 3:[address] [facility] Ketones, Urine Trace(A) Negative mg/dL LAB URINALYSIS - AUTOMATED METHOD 06/29/2025 3:[address] [facility] Blood, Urine Large(A) Negative LAB URINALYSIS - AUTOMATED METHOD 06/29/2025 3:[address] [facility] Bilirubin, Urine Small(A) Negative LAB URINALYSIS - AUTOMATED METHOD 06/29/2025 3:[address] [facility] Urobilinogen, Urine 1.0 0.2 to 1.0 mg/dL LAB URINALYSIS - AUTOMATED METHOD 06/29/2025 3:[address] [facility] Leukocytes, Urine Small(A) Negative LAB URINALYSIS - AUTOMATED METHOD 06/29/2025 3:[address] [facility] Nitrite, Urine Negative Negative LAB URINALYSIS - AUTOMATED METHOD 06/29/2025 3:[address] [facility] RBC, Urine >50(A) 0 to 3 /HPF LAB URINALYSIS - AUTOMATED METHOD 06/29/2025 3:[address] [facility] Comment:This result was prev iously suppressed from the chart. WBC, Urine 11 - 20(A) 0 to 5 /HPF LAB URINALYSIS - AUTOMATED METHOD 06/29/2025 3:[address] [facility] Comment:This result was prev iously suppressed from the chart. Squamous Epithelial Cells 0 - 2 0 to 5 /HPF LAB URINALYSIS - AUTOMATED METHOD 06/29/2025 3:[address] [facility] Comment:This result was prev iously suppressed from the chart. Hyaline Casts >20(A) 0 to 5 /LPF LAB URINALYSIS - AUTOMATED METHOD 06/29/2025 3:[address] [facility] Comment:This result was prev iously suppressed from the chart. Bacteria, Urine Negative Negative LAB URINALYSIS - AUTOMATED METHOD 06/29/2025 3:[address] [facility] Comment:This result was prev iously suppressed from the chart. Yeast (Budding and/or Pseudohyphae) Present(A) Absent 06/29/2025 3:[address] [facility] Comment:This result was prev iously suppressed from the chart. Urine Urine specimen obtained by clean catch procedure / Unknown Non-blood Collection / Unknown 06/29/2025 2:00 AM EDT 06/29/2025 2:[address] [facility] - 06/29/2025 3:11 AM EDT Urinalysis dipstick results may be inaccurate due to specimen color or an interfering substance in the specimen.Test performed by manual method Rg Coleman MD LAB URINE ORDERABLES Final Res ult Performing Organization Address [facility] Co de Phone Number [facility] [address] [place] [address] * (ABNORMAL) Troponin T, High Sensitivity, 2 Hour, Plasma (06/28/2025 11:57 PM EDT) Pathologist [facility] Troponin T, High Sensitivity, 2 Hour 22(H) <19 ng/L 06/29/2025 12:[address] [facility] Troponin Delta 2 <10 ng/L 06/29/2025 12:[address] [facility] Troponin Delta Interpretation Not Significant 06/29/2025 12:[address] [facility] Comment:Not Significant. No acute change in troponin observed between the baseline and 2 hour samples. Blood Venous blood specimen / Unknown Venipuncture / Unknown 06/28/2025 11:57 PM EDT 06/29/2025 12:03 AM EDT Rg Coleman MD LAB BLOOD ORDERABLES Final Res ult Performing Organization Address [facility] Co de Phone Number [facility] [address] [place] [address] * CT Angio Abdomen Pelvis (06/28/2025 11:11 [...] Total DLP (Dose-Length Product): 2949.46 mGy.cm (accession [id number]), 2949.46 mGy.cm (accession [id number]). Please note: The reported value represents the [...] Total DLP (Dose-Length Product): 2949.46 mGy.cm (accession [id number]),2949.46 mGy.cm (accession [id number]). Please note: The reported valuerepresents the total [...] Total DLP (Dose-Length Product): 2949.46 mGy.cm (accession [id number]), 2949.46 mGy.cm (accession [id number]). Please note: The reported value represents the [...] Total DLP (Dose-Length Product): 2949.46 mGy.cm (accession [id number]),2949.46 mGy.cm (accession [id number]). Please note: The reported valuerepresents the total [...] - 63 U/L 06/29/2025 7:[address] [facility] Blood Venous blood specimen / Unknown Venipuncture / Unknown 06/28/2025 9:39 PM EDT 06/28/2025 9:47 PM EDT Homero Gutierrez APRN, LUD[place]IL[place] LAB BLOOD ORDERAB LES Final Result [facility] [address] [place] [address] * Blood Culture (Aerobic/Anaerobet Set) (06/28/2025 9:39 PM EDT) Culture No growth at day 5 07/03/2025 11:[address] [facility] Blood Structure of left hand / Unknown Venipuncture / Unknown 06/28/2025 9:39 PM EDT 06/28/2025 10:04 PM EDT us Rg Coleman MD LAB MICROBIOLOGY - GENERAL ORD ERABLES Final Result Performing Organization Address City/[facility]/ZIP Co de Phone Number [facility] [address] [place] [address] * Blood Culture (Aerobic/Anaerobet Set) (06/28/2025 9:39 PM EDT) Pathologist [facility] Culture No growth at day 5 07/03/2025 11:[address] [facility] Blood Structure of part of right upper limb / Unknown Venipuncture / Unknown 06/28/2025 9:39 PM EDT 06/28/2025 10:05 PM EDT Rg Coleman MD LAB MICROBIOLOGY - GENERAL ORD ERABLES Final Result Performing Organization Address [facility] Co de Phone Number [facility] [address] [place] [address] * (ABNORMAL) C-Reactive protein (06/28/2025 9:39 PM EDT) [facility] CRP, Plasma 63.6(H) <=8.0 mg/L 06/28/2025 10:[address] [facility] Blood Venous blood specimen / Unknown Venipuncture / Unknown 06/28/2025 9:39 PM EDT 06/28/2025 9:[address] [facility] - 06/28/2025 10:15 PM EDT This CRP test is appropriate for assessment of infection, systemic inflammation and/or tissue injury. To assess cardiovascular disease risk order high sensitivity CRP (CRPH). Rg Coleman MD LAB BLOOD ORDERABLES Final Res ult Performing Organization Address City/[facility]/ZIP Co de Phone Number [facility] [address] [place] [address] * (ABNORMAL) Troponin now and 120 min (06/28/2025 9:39 PM EDT) Pathologist [facility] Troponin T, High Sensitivity, 0 Hour 24(H) <19 ng/L 06/28/2025 10:15 PM EDT [facility] Blood Venous blood specimen / Unknown Venipuncture / Unknown 06/28/2025 9:39 PM EDT 06/28/2025 9:47 PM EDT us Rg Coleman MD LAB BLOOD ORDERABLES Final Res ult [facility] [address] [place] [address] * (ABNORMAL) CMP (06/28/2025 9:39 PM EDT) Glucose, Plasma 122(H) 74 - 99 mg/dL 06/28/2025 10:[address] [facility] BUN, Plasma 23 8 - 23 mg/dL 06/28/2025 10:[address] [facility] Creatinine, Plasma 1.49(H) 0.70 - 1.20 mg/dL 06/28/2025 10:[address] [facility] BUN/Creatinine Ratio 15 06/28/2025 10:[address] [facility] Sodium, Plasma 131(L) 136 - 145 mmol/L 06/28/2025 10:[address] [facility] Potassium, Plasma 3.7 3.6 - 4.9 mmol/L 06/28/2025 10:[address] [facility] Chloride, Plasma 98 97 - 107 mmol/L 06/28/2025 10:[address] [facility] CO2, Plasma 20(L) 22 - 29 mmol/L 06/28/2025 10:[address] [facility] Anion Gap 13 6 - 16 mmol/L 06/28/2025 10:[address] [facility] Total Calcium, Plasma 8.1(L) 8.9 - 10.2 mg/dL 06/28/2025 10:[address] [facility] Total Protein 5.3(L) 6.3 - 7.9 g/dL 06/28/2025 10:[address] [facility] Albumin, Plasma 2.7(L) 3.5 - 5.2 g/dL 06/28/2025 10:[address] [facility] AST, Plasma 67(H) 10 - 50 U/L 06/28/2025 10:[address] [facility] ALT, Plasma 49 10 - 50 U/L 06/28/2025 10:[address] [facility] Alkaline Phosphatase, Plasma 157(H) 40 - 115 U/L 06/28/2025 10:[address] [facility] Total Bilirubin, Plasma 2.8(H) 0.2 - 1.1 mg/dL 06/28/2025 10:[address] [facility] eGFRcr 50.2 mL/min/1.7 3m*2 06/28/2025 10:[address] [facility] Comment:Reported eGFRcr in m L/min/1.73m2 is based the CKD-EPI 2020 equation that does not use a race coefficient. Blood Venous blood specimen / Unknown Venipuncture / Unknown 06/28/2025 9:39 PM EDT 06/28/2025 9:47 PM EDT Rg Coleman MD LAB BLOOD ORDERABLES Final Res ult [facility] [address] [place] [address] * Type and screen (06/28/2025 9:39 PM [...] TEST ORDERABLES Final Result Performing Organization Address City/[facility]/ZIP Co de Phone Number BLOOD BANK [address] [place] [address], [place] * (ABNORMAL) APTT (06/28/2025 9:39 PM EDT) aPTT 70(H) 25 - 35 sec 06/28/2025 10:[address] [facility] Blood Venous blood specimen / Unknown Venipuncture / Unknown 06/28/2025 9:39 PM EDT 06/28/2025 9:47 PM EDT us Rg Coleman MD LAB BLOOD ORDERABLES Final Res ult [facility] [address] [place] [address] * (ABNORMAL) CBC w/diff (06/28/2025 9:39 PM EDT) WBC Count 23.92(H) 3.70 - 10.30 10*3/uL LAB HEMATOLOGY METHOD 06/29/2025 1:[address] [facility] RBC Count 3.78(L) 4.60 - 6.10 10*6/uL LAB HEMATOLOGY METHOD 06/29/2025 1:[address] [facility] HGB 12.3(L) 13.7 - 17.5 g/dL LAB HEMATOLOGY METHOD 06/29/2025 1:[address] [facility] HCT 34.7(L) 40.0 - 51.0 % LAB HEMATOLOGY METHOD 06/29/2025 1:[address] [facility] Platelet Count 128(L) 155 - 369 10*3/uL LAB HEMATOLOGY METHOD 06/29/2025 1:[address] [facility] MCV 92 79 - 98 fL LAB HEMATOLOGY METHOD 06/29/2025 1:[address] [facility] MCH 32.5(H) 26.0 - 32.0 pg LAB HEMATOLOGY METHOD 06/29/2025 1:[address] [facility] MCHC 35.4 30.7 - 35.5 g/dL LAB HEMATOLOGY METHOD 06/29/2025 1:[address] [facility] RDW 16.3(H) 11.5 - 14.5 % LAB HEMATOLOGY METHOD 06/29/2025 1:[address] [facility] MPV 12.2 8.8 - 12.5 fL LAB HEMATOLOGY METHOD 06/29/2025 1:[address] [facility] nRBC 0.0 <=0.0 per 100 WBCs LAB HEMATOLOGY METHOD 06/29/2025 1:[address] [facility] Differential Type Automated LAB HEMATOLOGY METHOD 06/29/2025 1:[address] [facility] Neutrophils % 59 % LAB HEMATOLOGY METHOD 06/29/2025 1:[address] [facility] Lymphocytes % 37 % LAB HEMATOLOGY METHOD 06/29/2025 1:[address] [facility] Monocytes % 3 % LAB HEMATOLOGY METHOD 06/29/2025 1:[address] [facility] Eosinophils % 0 % LAB HEMATOLOGY METHOD 06/29/2025 1:[address] [facility] Basophils % 0 % LAB HEMATOLOGY METHOD 06/29/2025 1:[address] [facility] Immature Granulocytes % 1 % LAB HEMATOLOGY METHOD 06/29/2025 1:[address] [facility] Neutrophils Absolute 13.97(H) 1.60 - 6.10 10*3/uL LAB HEMATOLOGY METHOD 06/29/2025 1:[address] [facility] Lymphocytes Absolute 8.87(H) 1.20 - 3.90 10*3/uL LAB HEMATOLOGY METHOD 06/29/2025 1:[address] [facility] Monocytes Absolute 0.73 0.30 - 0.90 10*3/uL LAB HEMATOLOGY METHOD 06/29/2025 1:[address] [facility] Eosinophils Absolute 0.07 0.00 - 0.50 10*3/uL LAB HEMATOLOGY METHOD 06/29/2025 1:[address] [facility] Basophils Absolute 0.06 0.00 - 0.10 10*3/uL LAB HEMATOLOGY METHOD 06/29/2025 1:[address] [facility] Immature Granulocytes Absolute 0.16(H) 0.00 - 0.06 10*3/uL LAB HEMATOLOGY METHOD 06/29/2025 1:[address] [facility] Blood Venous blood specimen / Unknown Venipuncture / Unknown 06/28/2025 9:39 PM EDT 06/28/2025 9:[address] [facility] - 06/29/2025 1:00 AM EDT Therapeutic decision making should be based on absolute values, rather than percentages. Rg Coleman MD LAB BLOOD ORDERABLES Final Res ult Performing Organization Address [facility] Co de Phone Number [facility] [address] [place] [address] * (ABNORMAL) PT-INR (06/28/2025 9:39 PM EDT) Prothrombin Time 21.0(H) 12.0 - 14.3 sec 06/28/2025 10:[address] [facility] INR 1.8(H) 0.9 - 1.1 06/28/2025 10:[address] [facility] Blood Venous blood specimen / Unknown Venipuncture / Unknown 06/28/2025 9:39 PM EDT 06/28/2025 9:[address] [facility] - 06/28/2025 10:04 PM EDT OPTIMAL INR RANGES FOR PATIENT ON ORAL ANTICOAGULANT THERAPY Prevention of venous thromboembolism INR 2.0 to 3.0 In patients with heart disease: Atrial fibrillation INR 2.0 to 3.0 Valvular heart disease INR 2.0 to 3.0 Tissue heart valves INR 2.0 to 3.0 Mechanical prosthetic valves INR 2.5 to 3.5 Prevention of recurrent MD INR 2.5 to 3.5 Rg Coleman MD LAB BLOOD ORDERABLES Final Res ult Performing Organization Address [facility] Co de Phone Number [facility] [address] [place] [address] * (ABNORMAL) POCT venous blood gas gem (06/28/2025 9:33 PM EDT) pH, Venous 7.50(H) 7.32 - 7.43 06/28/2025 9:35 PM EDT [facility] pCO2, Venous 28(L) 40 - 55 mm Hg 06/28/2025 9:35 PM EDT [facility] pO2, Venous 66(H) 25 - 40 mm Hg 06/28/2025 9:35 PM EDT [facility] SO2, Venous 96(H) 65 - 80 % 06/28/2025 9:35 PM EDT [facility] Base Excess/Deficit, Venous -0.3 -2 - 3 mmol/L 06/28/2025 9:35 PM EDT [facility] HCO3, Venous 21.8(L) 22 - 26 mmol/L 06/28/2025 9:35 PM EDT [facility] Hemoglobin, Venous 12.8(L) 13.7 - 17.5 g/dL 06/28/2025 9:35 PM EDT [facility] Hematocrit, Venous 38.0(L) 40.0 - 51.0 % 06/28/2025 9:35 PM EDT [facility] Sodium, Venous 129(L) 136 - 145 mmol/L 06/28/2025 9:35 PM EDT [facility] Potassium, Venous 3.6 3.6 - 4.9 mmol/L 06/28/2025 9:35 PM EDT [facility] Comment:Hemolyzed, result ma y be falsely increased. POCT Chloride, Venous 98 97 - 107 mmol/L 06/28/2025 9:35 PM EDT [facility] Glucose, Venous 114(H) 74 - 99 mg/dL 06/28/2025 9:35 PM EDT [facility] Ionized Calcium, Venous 4.2(L) 4.6 - 5.1 mg/dL 06/28/2025 9:35 PM EDT [facility] Lactate, Venous 2.5(H) 0.5 - 2.2 mmol/L 06/28/2025 9:35 PM EDT [facility] Body Temperature 37.0 Celsius 06/28/2025 9:35 PM EDT [facility] pH, Temp Corrected, Venous 7.50(H) 7.32 - 7.43 06/28/2025 9:35 PM EDT [facility] pCO2, Temp Corrected, Venous 28(L) 40 - 55 mm Hg 06/28/2025 9:35 PM EDT [facility] pO2, Temp Corrected, Venous 66(H) 25 - 40 mm Hg 06/28/2025 9:35 PM EDT [facility] Pipe Supervisor NICK HerzogSHIRA 06/28/2025 9:35 PM EDT [facility] Blood, Venous Whole blood specimen / Unknown 06/28/2025 9:33 PM EDT 06/28/2025 9:35 PM EDT Generic Provider Poct LAB POINT OF CARE TEST DOCKED DEVICE UNSOLICITED RESULTS Final Result Performing Organization Address [facility] Co de Phone Number [facility] [address] [place] [address] * (ABNORMAL) POCT glucose meter (06/28/2025 9:22 PM EDT) [facility] POCT Glucose 119(H) 74 - 99 mg/dL [...] Comment 06/28/2025 9:23 PM EDT [facility] Pipe Supervisor ID Abdi Major 06/28/2025 9:23 PM EDT [facility] Device ID [id number] 06/28/2025 9:23 PM EDT [facility] Specimen Type POC Capillary 06/28/2025 9:23 PM EDT [facility] Blood Capillary blood specimen / Unknown 06/28/2025 9:22 PM EDT 06/28/2025 9:23 PM EDT Generic Provider Poct LAB POINT OF CARE TEST DOCKED DEVICE UNSOLICITED RESULTS Final Result Performing Organization Address [facility] Co de Phone Number [facility] [address] [place] [address] documented in this encounter Visit Diagnoses Diagnosis [...] Starting on Eunice 07/03/25 at 1758, Until Mon07/03/25 at 1844, Routine, Intraprocedure Given 07/03/2025 5:58 [...] TIERA) 0953 (Given - Provider: Jing Field RN)161 (MAR Hold - Provider: Automatic Transfer Provider - Reason: Patient in procedure)2032 (MAR Unhold - Provider: Automatic Transfer Provider) [...] Field RN) 0953 (Given - Provider: Jing Field, TIERA)1618 (JAN Hold - Provider: Automatic Transfer Provider [...] procedure)2032 (JAN Unhold - Provider: Automatic Transfer Provider)222 (Given [...] procedure)2032 (JAN Unhold - Provider: Automatic Transfer Provider)222 (Not [...] on 06/29/25 at 0520, Until Discontinued, Routine 0511 (Not Given - Provider: Marielena Munoz, RN - Reason: Patient/family refused)1807 (Given - Provider: Jing Field, RN) 0553 (Not Given - Provider: Marielena Munoz [...] on Mon06/29/25 at 1800, Until Discontinued, Routine 1713 (Given - Provider: Jing Field, TIERA) 1618 (MAR Hold - Provider: Automatic Transfer Provider - Reason: Patient in procedure)1800 (Dose Auto Held - Provider: Automatic Transfer Provider)2032 (MAR Unhold - Provider: Automatic Transfer Provider) PRN Medication Order 07/02/2025 07/03/2025 07/04/2025 bisacodyl (Dulcolax) suppository 10 mg 10 mg, Rectal, Daily PRN, Starting on 06/30/25 at 0606, Until Mon07/04/25 at 1650, Routine, constipation 1618 ([facility] Hold - Provider: Automatic Transfer Provider - Reason: Patient in procedure)2032 ([facility] Unhold - Provider: Automatic Transfer Provider) iohexol (OMNIPaque) 300 MG/ML injection (CANCELED) As needed, Starting on Eunice 07/03/25 at 1758, Until Eunice 07/03/25 at 1844, Routine, Intraprocedure 1758 (Given - Provider: Dyllan Paul MD) methocarbamol (Robaxin) tablet 500 mg 500 mg, Oral, 4 times daily PRN, Starting on 06/29/25 at 0627, Until Mon07/04/25 at 1650, Routine, muscle spasms 1618 (MAR Hold - Provider: Automatic Transfer Provider - Reason: Patient in procedure)2032 ([facility] Unhold - Provider: Automatic Transfer Provider) ondansetron (Zofran) injection 4 mg(Linked Group 2) 4 mg, Intravenous, Every 6 hours PRN, Starting on 06/30/25 at 1657, Until Mon07/04/25 at 1650, Routine, vomiting, nausea 1618 ([facility] Hold - Provider: Automatic Transfer Provider - Reason: Patient in procedure)2032 ([facility] Unhold - Provider: Automatic Transfer Provider) ondansetron (Zofran) injection 4 mg (COMPLETED) 4 mg, Intravenous, Once as needed, 1 dose, Starting on Eunice 07/03/25 at 1627, Until Eunice 07/03/25 at 1805, Routine, Holding - Preprocedure, nausea, vomiting 1805 (Given - Provider: Lary Bloom, PLASTIC DESIGN APPLIER, DNP) ondansetron ODT (Zofran-ODT) disintegrating tablet 4 mg(Linked Group 2) 4 mg, Oral, Every 6 hours PRN, Starting on 06/30/25 at 1657, Until Mon07/04/25 at 1650, Routine, nausea, vomiting 1618 ([facility] Hold - Provider: Automatic Transfer Provider - Reason: Patient in procedure)2032 ([facility] Unhold - Provider: Automatic Transfer Provider) oxyCODONE (Roxicodone) immediate release tablet 5 mg 5 mg, Oral, Every 6 hours PRN, Starting on 06/29/25 at 1605, Until Mon07/04/25 at 1650, Routine, moderate pain 2040 (Given - Provider: Marielena Munoz RN) 1618 ([facility] Hold - Provider: Automatic Transfer Provider - Reason: Patient in procedure)2032 ([facility] Unhold - Provider: Automatic Transfer Provider)2226 (Given - Provider: Claude Ash RN) sodium chloride 0.9 % flush 10 mL(Linked Group 1) 10 mL, Intravenous, As needed, Starting on 06/29/25 at 0517, Until Mon07/04/25 at 1650, Routine, line care 1618 ([facility] Hold - Provider: Automatic Transfer Provider - Reason: Patient in procedure)2032 ([facility] Unhold - Provider: Automatic Transfer Provider) [...] documented as of this encounter Care Teams Conservation Science Teacher Relationship Specialty Start Date End Date Murray Prajapati MD [address] [facility] [address] [place] [id number] PCP - General 03/06/23 Jaja Camara APRN [address] [place] [facility] [address] [place] [id number] Referring Physician Gastroenterology 03/06/23 Dyllan Paul MD [address] [phone] Surgeon Urology 04/29/25 documented as of this encounter
--- OUTSIDE RECORDS SUMMARY | 2025-07-03 17:25 | XMS_ITS | Encounter Summary ---
Author Organization [facility] Address [address] [id number] Care Team Providers Care Picture Frame Maker Name Role Phone Murray Prajapati MD Primary Care Provider [phone] Jaja Camara APRN Unavailable [phone] Dyllan Paul MD Unavailable [phone] Reason for Visit * Auth/Cert (Routine) Specialty Diagnoses / Procedures Referred By Silverio barone Referred To Contact Diagnoses Sepsis, localized, in operative wound (CMS/HCC) Lizzie Cadena MD [address] [place] [address] Phone: tel: fax: P[facility] A Inpatient [address] [place] [address] Referral ID Status Reason Start Date Expiration Date Visits Re quested Visits Authorized [id number] 1 1 Encounter Details Date Type Department Care Team (Late st Contact Info) Description 07/03/2025 5:25 PM EDT Anesthesia Event [facility] ROOM [address] [place] [address] Anand Pedraza MD [address] [place] [address] Annel Doshi APRN, DNP [address] [place] [address] Anesthesia Record Procedure Summary Procedure Name Responsible Anesthesiologist Anesthesia Start Time Anesthesia Stop Time CYSTOSCOPY, WITH URETERAL STENT INSERTION (Right) Anand Pedraza MD 07/03/25 1725 07/03/25 1856 Events Date Time Event Comment 07/03/2025 1640 1725 In Room 1725 An Start The patient was reevaluated immediately before sedation and remains eligible for anesthesia plan. 1726 AN Equip Check 1726 An Start Data 1731 An Induction The patient was reevaluated immediately before moderate or deep sedation use and before anesthesia induction. 1733 An Intubation 1737 Anesthesia Ready 1752 Proc Start 1805 Proc Fin 1806 Allan Oral gastric tu be inserted for gastric decompression 1810 Allan In line suction out ETT x 2 1839 An Extubation 1842 an stop data 1844 Out of Room 1856 Handoff to Receiving I compl eted my handoff to the receiving clinician during which we: 1. Identified the patient 2. Identified the responsible provider 3. Reviewed the pertinent medical history 4. Discussed the surgical course 5. Reviewed intra-op anesthesia management and issues during anesthesia 6. Set expectations for post-procedure period 7. Allowed opportunity for questions and acknowledgement of understanding. 1855 An Stop Meds Name Total propofol (Diprivan) injection 10 mg/mL 2 00 mg fentaNYL (Sublimaze) injection 50 mcg/mL 50 mcg lidocaine PF (Xylocaine-MPF) 2% 100 mg dexamethasone (Decadron) injection 4 mg/ mL 4 mg succinylcholine (Anectine) injection 20 mg/mL 120 mg cefepime (Maxipime) 2 g in s odium chloride 0.9% 100 mL IVPB (vial adapter required) 2 g ondansetron (Zofran) injection 4 mg 4 mg phenylephrine (Timothy-Synephrine) prefilled syringe 1 mg/10 mL 300 mcg albuterol (Proventil, Ventolin, ProAir) inhaler 108 (90 BASE) mcg/act 20 puff hydrocortisone sodium succinate (Solu-CO RTEF) injection 100 mg 100 mg lactated Ringer's infusion 600 mL * Agents Name O2 * Blood No blood administrations on file. Lines, Drains, and Airways Type Details Placement Removal Wound 06/12/25; 1530; N; Y es; Surgical; Laparoscopic (4 trocar entry sites for laparoscopic prostatectomy + one midline incision, 06/12/2025, with Dr. 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 machine operator 06/12/25; 192; N; Y es; Surgical; Open Surg; Abdomen; Mid 06/12/251928 by Idalia Leonardo Wound 06/29/25; 1999; Yes; Other (incision); Abdomen; Left, Lower; incision from laparoscopy leaking fluid 06/29/251999 by Denae Lowe RN Wound 06/13/25; 1200; Surg ical; Pretibial; Left; 07/28/25; 1029; Healed 06/13/25 1200 by Karen Ortiz RN 07/28/25 1029 by Russell Huerta RN Peripheral IV Placement Date: 08/14; Placement Time: 2131; Orientation: Posterior, Left; Location: Hand; Removal Date: 07/04/25; Removal Time: 113906/28/252131 by Mike Tellez RN 07/04/25 114 by Ju Herrera RN Peripheral IV Placement Date: 08/14; Placement Time: 2143; Catheter Size: 18 G; Orientation: Right; Location: Antecubital; Technique: Anatomical landmarks; Removal Date: 07/04/25; Removal Time: 113906/28/252143 by Mike Tellez RN 07/04/25 1140 by Ju Herrera RN Male External Urinary Catheter 06/30/25; 0800; 07/04/25; 1140 06/30/25 08 by Ju Herrera RN 07/04/25 1140 by Ju Herrera RN ETT Placement Date: 06/20 03/14; Placement Time: 1732 (created via procedure documentation); Mask Ventilation: 0 (RSI induction); Technique: Video laryngoscopy; Type: ETT - single; Single Lumen Tube Size: 7.5 mm; Cuffed: Yes; Laryngoscope: Wilfrid (hyper); Blade Size: 3; Location: Oral; Grade View: Grade I; Insertion Attempts: 1; Placement Verification: Auscultation, Capnometry; Airway Comments: Atraumatic. No change to dentition. ; Placed by: SALES LEAD GENERATOR; Removal Date: 07/03/25; Removal Time: 183807/03/251732 by Lary Bloom CRNA, DNP 07/03/25 1839 by Lary Bloom CRNA, DNP documented in this encounter Social History Tobacco [...] time in the past 12 m [facility], were you homeless or living in a detention (including now)? 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 0 06/28/2025 CAGE Questionnaire Score 0 025 Utilities Answer Date Recorded In the past 12 months has th [employer], gas, oil, or water [facility] threatened to shut off services in your home? No 06/16/2025 PHQ-2A Answer Date Recorded Patient Health Questionnaire-2 Score 0 05/04/2023 Sex and Gender Information Value Date Recorded Sex Assigned at Not on file Legal Sex Male 8:25 PM EDT Gender Identity Not on file Sexual Orientation Not on file documented as of this encounter Miscellaneous Notes * Anesthesia Postprocedure Evaluation - Lary Bloom, ALEX, DNP - 07/03/2025 6:56 PM EDT Patient: Eber Lowe Anesthesia Type: general Vitals Value Taken Time BP 113/69 07/03/25 18:55 Temp 36.5 07/03/25 18:56 Pulse 92 07/03/25 18:55 Resp 18 07/03/25 18:55 SpO2 100 % 07/03/25 18:55 Vitals shown include unfiled device data. Anesthesia Post Evaluation Patient location during evaluation: PACU Patient participation: complete - patient participated Level of consciousness: responsive to physical stimuli and awake Pain management: adequate (pain score 0-3) Airway patency: natural airway Cardiovascular status: acceptable, blood pressure returned to baseline and hemodynamically stable Respiratory status: acceptable, spontaneous ventilation, face mask, unassisted and nonlabored ventilation Hydration status: acceptable Nausea/Vomiting: No No notable events documented. * Anesthesia Procedure Notes - Lary Bloom CRNA, DNP - 07/03/2025 5:46 PM EDTAssociated Order(s): Airway Airway Date/Time: 07/03/2025 5:33 PM Reason: elective Airway not difficult General Information and Staff Patient location during procedure: OR SALES LEAD GENERATOR: Lary Bloom CRNA, DNP Performed: SALES LEAD GENERATOR Patient Condition Indications for airway management: anesthesia Patient position: sniffing Final Airway Details Final airway type: endotracheal airway Successful airway: ETT Cuffed: yes Successful intubation technique: video laryngoscopy Adjuncts used in placement: intubating stylet Endotracheal tube insertion site: oral Blade: Wilfrid (hyper) Blade size: #3 ETT size (mm): 7.5 Cormack-Lehane Classification: grade I - full view of glottis Placement verified by: chest auscultation and capnometry Measured from: lips ETT to lips (cm): 22 Additional Comments Atraumatic. No change to dentition. * Anesthesia Preprocedure Evaluation - Brian Bustillo MD - 07/03/2025 7:05 AM EDT Procedure Information Date/Time: 07/03/25 1410 Procedure: CYSTOSCOPY, WITH URETERAL STENT INSERTION (Right) Location: [facility] Surgeons: Dyllan Paul MD HPI Eber Lowe is a 70 y.o. male with body mass index is 35.32 kg/m??. who presents with Sepsis, localized, in operative wound (CMS/HCC) now for above procedure. INR 1.9 Na 128<129<128<130 PMH: cirrhosis, prostate cancer s/p prostatectomy Past Medical History: Diagnosis Date Cancer (CMS/HCC) january 26, 2025 Cirrhosis (CMS/HCC) 2021 History of methicillin resistant Staphylococcus aureus 2011 Hyperlipidemia Hypertension Kidney stone various Metabolic encephalopathy 06/17/2025 Substance abuse alcohol Patient reports recent anesthetic with aspiration on extubation. AIRWAY HISTORY: Date Difficult Airway Blade Size ETT Size C-L Class Final Type Intubation Method 06/12/25 No 3 8.0 grade IIb - view of arytenoids or posterior of glottis only endotracheal airway direct laryngoscopy Past Medical History: Diagnosis Date Cancer (CMS/HCC) january 26, 2025 Cirrhosis (CMS/HCC) 2021 History of methicillin resistant Staphylococcus aureus 2011 Hyperlipidemia Hypertension Kidney stone various Metabolic encephalopathy 06/17/2025 Substance abuse alcohol The risks, options, and benefits of general anesthesia were discussed with the patient. All questions addressed. Rationale reviewed. Patient understands options (including no intervention), prefers general anesthesia. NPO STATUS: since Activity Level/METS:<4 ALLERGIES Allergies[1] MEDICATIONS Outpatient Current Outpatient Medications Medication Instructions acetaminophen (TYLENOL) [...] 750 mg, Oral, 4 times daily PRN gwkkscuiqxcn-sdbm-aslufvhz-folic acid (Centrum) chewable tablet 1 tablet, Daily potassium chloride CR (Klor-Con) 10 MEQ ER tablet 10 mEq, Daily tamsulosin (FLOMAX) 0.4 mg, Oral, Daily with dinner Vitamin E 1,000 Units, Daily Scheduled Current Scheduled Medications[2] PRNs Current PRN Medications[3] SURGICAL HX: Surgical History[4] SOCIAL HX: Social History[5] OBJECTIVE DATA Blood pressure 109/67, pulse 95, temperature 36.4 ??C (97.6 ??F), temperature source Oral, resp. rate 18, height 1.753 m (5' 9 ), weight 109 kg (239 lb 3.2 oz), SpO2 93%. LABS Lab Results Component Value Date WBC 10.55 (H) 07/03/2025 HGB 11.3 (L) 07/03/2025 HCT 32.2 (L) 07/03/2025 MCV 94 07/03/2025 PLT 110 (L) 07/03/2025 Lab Results Component Value Date CALCIUM 7.5 (L) 07/03/2025 BUN 36 (H) 07/03/2025 CREATININE 1.54 (H) 07/03/2025 BCR 23 07/03/2025 NA 128 (L) 07/03/2025 K 3.8 07/03/2025 CL 98 07/03/2025 CO2 19 (L) 07/03/2025 ANIONGAP 11 07/03/2025 INR Date Value Ref Range Status 07/03/2025 1.9 (H) 0.9 - 1.1 Final Lab Results Component Value Date HGBA1C 5.4 06/16/2025 GLUCOSE 90 07/03/2025 EKG Encounter Date: 06/12/25 ECG Adult Result Value EKG DIAGNOSIS CLASS Abnormal Ventricular Rate 109 Atrial Rate 109 VA Interval 152 QRSD Interval 86 QT Interval 336 QTC Interval 452 P Hoyt -6 R Hoyt -1 T Wave Hoyt 5 Diagnosis Sinus tachycardia Diagnosis Poor R-wave [...] results can be found in Results Review. ECHO Echo, Adult Transthoracic Complete Result Date: 06/16/2025 Left Ventricle: Based on the linear dimension [...] is no recent study available for direct uwmn-je-etvo comparison. CTA chest/abd/pelvis: 06/28 1. No acute findings regarding the intrathoracic [...] and paraesophageal varices. 4. Interval removal of Martinez catheter, with retained 10 mm bladder calculus. There appears be some perivesical fat haziness, and wall thickening urinary bladder, which may be secondary to underdistention, however recommend correlation with urinalysis, or symptoms of UTI. Small amount of gas within the nondependent lumen may be residua of recent Martinez catheterization. 5. No free intra-abdominal gas, tiny [...] soft tissue emphysema in thescrotum, or perineum. Physical Exam Airway Mallampati: II Mouth opening: normal TM distance: >3 FB Neck ROM: full Cardiovascular Rhythm: regular Rate: normal Dental Pulmonary Breath sounds clear to auscultation Neurological Skin Musculoskeletal Extremities Anesthesia Plan ASA 3 - emergent Plan was reviewed with: SALES LEAD GENERATOR Anesthesia technique(s) discussed with the patient/family: general Anesthesia plan agreed upon was: general Anesthetic plan and risks discussed with patient and spouse. ROS Anesthesia: Date of last anesthetic: 06/12/25 history of previous anesthesia. Does not have a history of anesthetic complications and obstructivesleep apnea. Anesthesia ROS additional comments: Had an aspiration event after ETT was removed Cardiovascular: hyperlipidemia. Does not have CHF, dysrhythmias or past VT. hypertension: Exercise tolerance is 2 flights of stairs. Respiratory: Negative respiratory ROS.Does not have home oxygen. no asthma: no COPD: HEENT: chipped teeth.Does not have loose teeth. Neurological: no seizures: Did not have a cerebrovascular accident. Musculoskeletal: Does not have cervical spine limited mobility. Gastrointestinal: Does not have GERD.cirrhosis. Does not have ascites. obese. Genitourinary: prostate cancer and renal calculi. Does not have renal disease. Hematological/Lymphatic: History of no DVT. History of pulmonary embolism. Not in a hypercoagulable state. no history of chemotherapy no history of radiation MRSA (~ 2012.). Does not have tuberculosis. Endocrine/Metabolic: does not have diabetes mellitus. Does not have thyroid disorder. electrolyte abnormalities. [1] No Known Allergies [2] atorvastatin, 10 mg, Oral, Daily bisacodyl, 10 mg, Rectal, Daily cefepime, 2 g, Intravenous, q8h [Held by provider] enoxaparin, 110 mg, Subcutaneous, q12h fluconazole, 200 mg, Oral, Daily lactulose, 20 g, Oral, TID metroNIDAZOLE, 500 mg, Oral, q8h mupirocin, 1 Application, Each Nostril, BID Insert peripheral IV, , , Once AND Saline lock IV, , , Once AND sodium chloride, 10 mL, Intravenous, q12h AND sodium chloride, 10 mL, Intravenous, PRN tamsulosin, 0.4 mg, Oral, Daily with dinner [3] PRN medications: bisacodyl, methocarbamol, ondansetron ODT OR ondansetron OR [DISCONTINUED] ondansetron, oxyCODONE, Insert peripheral IV AND Saline lock IV AND sodium chloride AND sodium chloride [4] Past Surgical History: Procedure Laterality Date CHOLECYSTECTOMY 2009 lap KNEE ARTHROSCOPY W/ MENISCAL REPAIR OTHER SURGICAL HISTORY Lipoma resection UMBILICAL HERNIA REPAIR [5] Social History Tobacco Use Smoking status: Never Passive exposure: Never Smokeless tobacco: Never Vaping Use Vaping status: Never Used Substance Use Topics Alcohol use: Yes Comment: Currently social use. Drug use: Never documented in this encounter Plan of Treatment Upcoming Encounters Date Type Department Care Team (Latest Contact Info) Description 08/22/2025 9:00 AM EDT Office Visit [facility] [place] [facility] [address], [address] [place] [address] Kathia Watkins MD [address] [place] [address] 08/28/2025 8:50 AM EDT Hospital Encounter [facility] [address] [place] [address] Dyllan Paul MD [address] [address] 08/28/2025 8:50 AM EDT Anesthesia Event [facility] RO[facility] [address] [place] [address] Paige Starkey, TORREY [address] [place] [address] 08/28/2025 8:50 AM EDT - 08/28/2025 10:35 AM EDT Surgery [facility] RO[facility] [address] [place] [address] Dyllan Paul MD [address] [facility] [address] [place] [address] URETEROSCOPY, WITH LASER LITHOTRIPSY [76029 (CPT )] 10/28/2025 8:00 AM EST Office Visit [facility] [address] [place] [address] Pavan Aldrich MD [address] [place] [address] Scheduled Procedures Name Priority Associated Diagnoses Date/Ti me URETEROSCOPY, WITH LASER LITHOTRIPSY Ureteral stone 08/28/2025 8:50 AM EDT documented as of this encounter Procedures Procedure Name Priority Date/Time Associated Diagnosis Comments PB ANESTHESIA PLACEHOLDER Routine 07/03/2025 5:33 PM EDT VA AN ELECTIVE ENDOTRACHEAL AIRWAY Routine 07/03/2025 5:33 PM EDT documented in this encounter Results * VA AN ELECTIVE ENDOTRACHEAL AIRWAY, PB ANESTHESIA PLACEHOLDER (07/03/2025 5:33 PM EDT) Narrative Lary Bloom CRNA, DNP - 07/03/2025 5:33 PM EDT Lary Bloom CRNA, DNP 07/03/2025 5:47 PM Airway Date/Time: 07/03/2025 5:33 PM Reason: elective Airway not difficult General Information and Staff Patient location during procedure: OR SALES LEAD GENERATOR: Lary Bloom CRNA, DNP Performed: SALES LEAD GENERATOR Patient Condition Indications for airway management: anesthesia Patient position: sniffing Final Airway Details Final airway type: endotracheal airway Successful airway: ETT Cuffed: yes Successful intubation technique: video laryngoscopy Adjuncts used in placement: intubating stylet Endotracheal tube insertion site: oral Blade: Wilfrid (hyper) Blade size: #3 ETT size (mm): 7.5 Cormack-Lehane Classification: grade I - full view of glottis Placement verified by: chest auscultation and capnometry Measured from: lips ETT to lips (cm): 22 Additional Comments Atraumatic. No change to dentition. Anand Pedraza MD ANESTHESIA ORDERABLES Final Re sult documented in this encounter Visit Diagnoses Not on filedocumented in this encounter Administered Medications Inactive Administered Medications - up to 3 most recent administrations Medication Order MAR Action Action Date Dose Rate Site albuterol 108 (90 Base) MCG/ACT inhaler Inhalation, As needed, Starting on Eunice 07/03/25 at 1830, Until Eunice 07/03/25 at 1856, Routine, Anesthesia Intraprocedure Given 07/03/2025 6:30 PM EDT 10 puffs Given 07/03/2025 6:15 PM EDT 10 puffs cefepime (Maxipime) 2 g in sodium chloride 0.9% 100 mL IVPB (vial adapter required) 2 g, Intravenous, Every 8 hours, First dose (after last modification) on Mon06/29/25 at 2200, Until Discontinued, Routine Bolus 07/03/2025 5:50 PM EDT 2 g New Bag 07/03/2025 6:17 AM EDT 2 g 36.7 mL/hr New Bag 07/02/2025 9:24 PM EDT 2 g 36.7 mL/hr dexamethasone (Decadron) injection Intravenous, As needed, Starting on Eunice 07/03/25 at 1805, Until Eunice 07/03/25 at 1856, Routine, Anesthesia Intraprocedure Given 07/03/2025 6:05 PM EDT 4 m g fentaNYL (Sublimaze) injection Intravenous, As needed, Starting on Eunice 07/03/25 at 1731, Until Eunice 07/03/25 at 1856, Routine, Anesthesia Intraprocedure Given 07/03/2025 5:31 PM EDT 50 mcg hydrocortisone sod succinate (PF) (Solu-CORTEF) injection Intravenous, As needed, Starting on Eunice 07/03/25 at 1822, Until Eunice 07/03/25 at 1856, Routine, Anesthesia Intraprocedure Given 07/03/2025 6:22 PM EDT 100 mg lactated Ringer's infusion 100 mL/hr, Intravenous, Once, 1 dose, On Eunice 07/03/25 at 1715, RoutineIndications:For all patients unless specifically contraindicated. In that case, please contact me. New Bag 07/03/2025 5:26 PM EDT lidocaine PF (Xylocaine) 2 % injection Intravenous, As needed, Starting on Eunice 07/03/25 at 1731, Until Eunice 07/03/25 at 1856, Routine, Anesthesia Intraprocedure Given 07/03/2025 5:31 PM EDT 100 mg ondansetron (Zofran) injection 4 mg 4 mg, Intravenous, Once as needed, 1 dose, Starting on Eunice 07/03/25 at 1627, Until Eunice 07/03/25 at 1805, Routine, Holding - Preprocedure, nausea, vomitingIndications:Nausea and Vomiting Given 07/03/2025 6:05 PM EDT 4 mg phenylephrine in NS (Timothy-Synephrine) 100 mcg/mL prefilled syringe Intravenous, As needed, Starting on Eunice 07/03/25 at 1736, Until Eunice 07/03/25 at 1856, Routine, Anesthesia Intraprocedure Given 07/03/2025 6:11 PM EDT 100 mcg Given 07/03/2025 6:04 PM EDT 100 mcg Given 07/03/2025 5:36 PM EDT 100 mcg propofol (Diprivan) injection Intravenous, As needed, Starting on Eunice 07/03/25 at 1731, Until Eunice 07/03/25 at 1856, Routine, Anesthesia Intraprocedure Given 07/03/2025 6:09 PM EDT 50 mg Given 07/03/2025 5:31 PM EDT 150 mg succinylcholine (Anectine) injection Intravenous, As needed, Starting on Eunice 07/03/25 at 1732, Until Eunice 07/03/25 at 1856, Routine, Anesthesia Intraprocedure Given 07/03/2025 5:32 PM EDT 120 mg documented in this encounter Additional Health Concerns [...] documented as of this encounter Care Teams Picture Frame Maker Relationship Specialty Start Date End Date Murray Prajapati MD [facility] [address] [place] [address] PCP - General 03/06/23 Jaja Camara APRN [address] [facility] [address] [place], [place] [id number] Referring Physician Gastroenterology 03/06/23 Dyllan Paul MD [id number] [place] [address] Surgeon Urology 04/29/25 documented as of this encounter
--- OUTSIDE RECORDS SUMMARY | 2025-07-22 06:57 | XMS_ITS | Encounter Summary ---
Author Organization Healthcare Address [address] [place] [address] Care Team Providers Care Drier Helper Name Role Phone Murray Prajapati MD Primary Care Provider [phone] Jaja Camara CONTINUOUS IMPROVEMENT COACH Unavailable [phone] Dyllan Paul MD Unavailable [phone] Wendy Card INSTRUMENT STERILIZER Unavailable Unavaila ble Reason for Referral * Imaging (Routine) - Closed Specialty Diagnoses / Procedures Referred By Silverio barone Referred To Contact Radiology Diagnoses Renal calculi Procedures CT Urogram Trice Herrera MD [address] [address] Phone: tel: fax: Referral ID Status Reason Start Date Expiration Date Visits Re quested Visits Authorized [id number] Closed 06/25/2025 12/25/2026 1 1 Reason for Visit * Imaging (Routine) - Closed Specialty Diagnoses / Procedures Referred By Silverio barone Referred To Contact Radiology Diagnoses Renal calculi Procedures CT Urogram Trice Herrera MD [address] [address] Phone: tel: fax: Referral ID Status Reason Start Date Expiration Date Visits Re quested Visits Authorized [id number] Closed 06/25/2025 12/25/2026 1 1 Encounter Details Date Type Department Care Team (Latest Contact Info) Description 07/22/2025 6:57 AM EDT - 07/22/2025 11:59 PM EDT Hospital Encounter [facility] Radiology [address] [place] [address] Renal calculi Discharge Disposition: Home or Self [...] any time in the past 12 m [facility], were you homeless or living in a residential (including now)? No 07/28/2025 [facility] Utilities Answer Date Recorded In the past 12 months has th [employer], gas, oil, or water [employer] threatened to shut off services in your [...] drink first t rafy in the morning (EYE-SAMPLE GRADER) to steady your nerves or to get [...] Date of Assessment Author No Risk Indicated 07/29/2025 4:00 AM EDT Liat Gerber RN * Question Answer Date of Assessment Author 1. Wish to be (Past 1 Month) No 025 4:00 AM EDT Liat Gerber RN 2. Non-Specific Active Suici tyra Thoughts (Past 1 Month) No 07/29/2025 4:00 AM EDT Charla Gerber RN 3. Active Suicidal Ideation with any Methods (Not Plan) Without Intent to Act (Past 1 Month) No 07/29/2025 4:00 AM EDT Liat Gerber R N 4. Active Suicidal Ideation with Some Intent to Act, Without Specific Plan (Past 1 Month) No 07/29/2025 4:00 AM EDT Liat Gerber R N 5. Active Suicidal Ideation with Specific Plan and Intent (Past 1 Month) No 07/29/2025 4:00 AM EDT Liat Gerber R N 6. Suicidal Behavior (Lifetime) No 4:00 AM EDT Liat Gerber RN documented as of this encounter Medications at Time of Discharge atorvastatin (Lipitor) 10 MG tablet Take 1 tablet by mouth daily. enoxaparin (Lovenox) 120 MG/0.8ML solution prefilled syringe Inject 0.8 mL under the skin every 12 hours. 180 each 06/25/2025 lactulose (Chronulac) 10 GM/15ML solution Take 15 mL by mouth daily. 473 mL 1 07/22/2025 miconazole (Micotin) 2 % powder Apply to [...] needed for pain. 60 tablet 07/04/2025 5 carvedilol (Coreg) 3.125 MG tabletIndications :Esophageal varices without bleeding, unspecified esophageal varices type (CMS/HCC) Take 1 tablet by mouth 2 times a day. 60 tablet 2 03/28/2025 5 furosemide (Lasix) 40 MG tablet Take 1 tablet by mouth 2 times a day. 5 methocarbamol (Robaxin) 750 MG tablet Take [...] & Mineral Metabolism [address] [facility], [address] [place] [address] Kathia Watkins MD [address] [facility] [address] [place] [address] 08/28/2025 8:50 AM EDT Hospital Encounter [facility] A OPERATING ROOM [address] [place] [address] Dyllan Paul MD [address] [place] [address] 08/28/2025 8:50 AM EDT Anesthesia Event [facility] A OPERATING ROOM [address] [place] [address] Paige Starkey, CONTINUOUS IMPROVEMENT COACH [address] [place] [address] 08/28/2025 8:50 AM EDT - 08/28/2025 10:35 AM EDT Surgery [facility] OPERATING ROOM [address] [place] [address] Dyllan Paul MD [address] [place] [address] URETEROSCOPY, WITH LASER LITHOTRIPSY [35010 (CPT )] 10/28/2025 8:00 AM EST [facility] [address] [place] [address] Pavan Aldrich MD [address] [place] [address] Scheduled Procedures Name Priority Associated Diagnoses Date/Ti me URETEROSCOPY, WITH LASER LITHOTRIPSY Ureteral stone 08/28/2025 8:50 AM EDT documented as of this encounter Goals [...] following split bolus administration of IV contrast, [id number], 150 mL. Reformatted images in the coronal [...] plan has been documented for the patient 07/27/2025 6:36 PM EDT documented as of this encounter Care Teams Drier Helper Relationship Specialty Start Date End Date Murray Prajapati MD [address] [facility] [address] [place], [place] [id number] PCP - General 03/06/23 Jaja Camara, CONTINUOUS IMPROVEMENT COACH [address] [place] [address] [place] [address] Referring Physician Gastroenterology 03/06/23 Dyllan Paul MD [address] [place] [address] Surgeon Urology 04/29/25 Wendy Card LPN VALUE-BASED TRANSFORMATION PROGRAM TCM Nurse 07/07/25 documented as of this encounter
--- OUTSIDE RECORDS SUMMARY | 2025-07-22 08:45 | XMS_ITS | Encounter Summary ---
Author Organization [facility] Address [address] [place] [address] Care Team Providers Care Rock Star Name Role Phone Murray Prajapati MD Primary Care Provider [phone] Jaja Camara RISK MANAGEMENT INTERN Unavailable [phone] Dyllan Paul MD Unavailable [phone] Wendy Card COFFEE WEIGHER Unavailable Unavaila ble Reason for Visit * Reason Comments Follow-up Encounter Details Date Type Department Care Team (Late st Contact Info) Description 07/22/2025 8:45 AM EDT Office Visit [facility] [address] [place] [address] Dyllan Paul MD [address] [place] [address] Ureteral stone (Primary Dx) Social History Tobacco Use Types [...] any time in the past 12 m on[facility], were you homeless or living in a snf (including now)? No 07/28/2025 [facility] Utilities Answer Date Recorded In the past 12 months has [facility] [employer], [employer], oil, or water [employer] threatened to shut off services in your [...] drink first t rafy in the morning (EYE-CERTIFIED FAMILY MEDIATOR) to steady your nerves or to get [...] Sign Reading Time Taken Comments Blood Pressure 82/55 07/22/2025 8:35 AM EDT Pulse - - Temperature - - Respiratory Rate - - Oxygen Saturation - - Inhaled Oxygen Concentration - - Weight - - Height 175.3 cm (5' 9 ) 07/22/2025 8:35 AM EDT Body Mass Index - - documented in this encounter Functional Status * [...] Date of Assessment Author No Risk Indicated 07/27/2025 8:00 AM EDT Helen Foster * Question Answer Date of Assessment Author 1. Wish to be (Past 1 Month) No 025 8:00 AM EDT Helen Foster 2. Non-Specific Active Suici tyra Thoughts (Past 1 Month) No 07/27/2025 8:00 AM EDT Jalyn Foster 6. Suicidal Behavior (Lifetime) No 8:00 AM EDT Helen Foster documented as of this encounter Miscellaneous Notes * Progress Notes - Eugene Ruggiero MD - 07/22/2025 8:45 AM EDT [facility] Urology Clinic Note 07/22/25 CC: Prostate Cancer, bladder stone, ureteral stone HPI: Eber Lowe is a 70 y.o. male with PMH hepatic encephalopathy/decompensated alcoholic cirrhosis, recent PE on AC, HTN, HLD, 6 mm non-obstructing right proximal ureteral stone, bladder stones, unfavorable intermediate risk prostate cancer s/p RALP w/PLND on 06/12/25 c/b transected umbilical vein and significant blood loss requiring ex lap, blood transfusions, and pressor support. He was admitted from 06/12-06/25 s/p RALP with ICU course complicated by acute hepatic encephalopathy and decompensatedalcohol induced cirrhosis. He was eventually downgraded to the floor and catheter was removed priorto discharge after Fl cystogram demonstrated no evidence of anastomotic leak 06/20. Discharged 06/25. He was re-admitted on 06/29/25 for management of co-morbidities including hepatic encephalopathy/decompensated alcoholic cirrhosis, AUD, recent PE/DVT, and hyponatremia. CTA C/A/P demonstrated no hydronephrosis bilaterally, an approximately 7 mm non-obstructing right proximal-mid ureteral stone, bladder wall thickening, and a 1 cm bladder stone. Urine culture grew 10-100k cfu/ml diutina rugosa. Heunderwent cystolitholapaxy, R ureteral stent placement on 07/03 . He was dicharged on 07/04 and completed Fluconazole, Levofloxacin, Metronidazole on an outpatient bases. Returns today with CT Urogram. He states he is still having scrotal pain and issues sleeping. He isalso continuing to have fluid leak from his left lateral incision. He is intermittently endorsing GH as well and is leaking urine. He has not been performing Kegel exercises regularly. Appetite is improving but remains an issue. Denies fever/chills, N/V. ROS: 14 pt ROS reviewed and negative except as noted per HPI Past Medical History: Past Medical History[1] Past Surgical History: Surgical History[2] Family History: Family History[3] Social History: Social History[4] Outpatient Medications: Current Outpatient Medications Medication Instructions acetaminophen (TYLENOL) 500 mg, Oral, Every 8 hours PRN atorvastatin (LIPITOR) 10 mg, Daily carvedilol (COREG) 3.125 mg, Oral, 2 times daily enoxaparin (LOVENOX) 120 mg, Subcutaneous, Every 12 hours furosemide (LASIX) 40 mg, 2 times daily (0900 & 1500) lactulose (CHRONULAC) 10 g, Oral, Daily methocarbamol (ROBAXIN) 750 mg, Oral, 4 times daily PRN miconazole (Micotin) 2 % powder Apply to affected areas mumfpkgalkny-eqbl-obmlochm-folic acid (Centrum) chewable tablet 1 tablet, Daily naloxone (NARCAN) 4 mg, Nasal, As needed tamsulosin (FLOMAX) 0.4 mg, Oral, Daily with dinner Vitamin E 1,000 Units, Daily Physical Exam: Vitals: 07/22/25 0835 BP: 82/55 GEN: NAD HEENT: NCAT, EOMI RESP: Equal bilateral chest rise, normal work of breathing CV: Regular rate, appears well perfused ABD: Mild distension, incisions healing well, small amount of serous drainage from left lateral incision : minimal penoscrotal edema, mild diffuse erythema, likely hematoma at dependent portion of scrotum EXT: No gross deformities MSK: Full ROM in BL UE NEURO: No focal deficits, alert and oriented PSYCH: Normal mood and affect Labs: Lab Results Component Value Date PH 7.48 (H) 06/18/2025 BILIRUBINUR Small (A) 06/30/2025 KETONESU Trace (A) 06/30/2025 Imaging: I have personally reviewed the imaging below: === 07/22/25 === CT UROGRAM - Narrative - CLINICAL INDICATION: stones TECHNIQUE: Multiple pre-contrast axial [...] right ureteral stent. A persistent 6 mm calculusis seen in the right mid ureter (series [...] Status post cholecystectomy. No biliary obstruction. Normal p ancreas and adrenal glands. Stable splenomegaly. GI Tract/Mesentery/Peritoneum: [...] wall findings. Lower Chest: No suspicious findings. - Impression - 1. Bilateral renal calculi. Persistent calculus in [...] Jorge Sosa MD on 07/22/2025 8:50 AM Assessment: Eber Lowe is a 70 y.o. M with PMH hepatic encephalopathy/decompensated alcoholic cirrhosis, recent PE on AC, HTN, HLD, 6 mm non-obstructing right proximal ureteral stone, bladder stones, unfavorable intermediate risk prostate cancer s/p RALP w/PLND on 06/12/25 c/b transected umbilical vein and significant blood loss requiring ex lap, blood transfusions, and pressor support. He was admitted from 06/12-06/25 s/p RALP with ICU course complicated by acute hepatic encephalopathy and decompensated alcohol induced cirrhosis. Discharged 06/25. He was re-admitted on 06/29/25 for management ofco- morbidities including hepatic encephalopathy/decompensated alcoholic cirrhosis, AUD, recent PE/DVT, and hyponatremia. CTA C/A/P demonstrated no hydronephrosis bilaterally, an approximately 7 mm non-obstructing right proximal-mid ureteral stone, bladder wall thickening, and a 1 cm bladder stone. He underwent cystolitholapaxy, R ureteral stent placement on 07/03. He was dicharged on 07/04 and completed Fluconazole, Levofloxacin, Metronidazole on an outpatient basis. Returns today with CT Urogram which demonstrates the right ureteral stone adjacent to the stent. Hestates he is still having scrotal pain and issues sleeping. He is also continuing to have fluid leak from his left lateral incision. He is intermittently endorsing GH as well and is leaking urine. Hehas not been performing Kegel exercises regularly. Appetite is improving but remains an issue. Denies fever/chills, N/V. Plan: - outpatient right ureteroscopy in 3-4 weeks for right ureteral stone - urine culture obtained today - scrotal support, elevation, ice/heat intermittently for pain - recommend pads in underwear for incontinence, Kegel exercises regularly - Lactulose reordered today - recommend follow up with PCP to discuss sleep issues and BLE edema Eugene Ruggiero MD Urology PGY-3 Pager: [phone] [1] Past Medical History: Diagnosis Date Cancer [...] social use. Drug use: Never Cosigned by Dyllan Paul MD at 07/27/2025 6:35 PM EDT Associated attestation - Dyllan Paul MD - 07/27/2025 6:35 PM EDT I saw and evaluated the [...] [facility], [address] [place] [address] Kathia Watkins MD [address] [place] [address] 08/28/2025 8:50 AM EDT Hospital Encounter PAV A OPERATING ROOM [address] [place] [address] Dyllan Paul MD [address] [facility] [address] [place] [address] 08/28/2025 8:50 AM EDT Anesthesia Event PAV A OPERATING ROOM [address] [place] [address] Paige Starkey, TORREY [address] [place] [address] 08/28/2025 8:50 AM EDT - 08/28/2025 10:35 AM EDT Surgery PAV A OPERATING ROOM [address] [place] [address] Dyllan Paul MD [address] [place] [address] URETEROSCOPY, WITH LASER LITHOTRIPSY [07311 (CPT )] 10/28/2025 8:00 AM EST Office Visit [facility] [address] [place] [address] Pavan Aldrich MD [address] [place] [address] Scheduled Procedures Name Priority Associated Diagnoses Date/Ti me URETEROSCOPY, WITH LASER LITHOTRIPSY Ureteral stone 08/28/2025 8:50 AM EDT documented as of this encounter Goals Goal Patient Goal Type Associated Problems Recent Progress Patient-Stated? Author Autogenerat ed Goal Care Plan Autogenerated Problem No Johnna Quiñones documented as of this encounter Procedures Procedure Name Priority Date/Time Associated Diagnosis Comments URINE CULTURE Routine 07/22/2025 10:26 AM EDT Ureteral stone documented in this encounter Results * Urine Culture - Clinic Collect (07/22/2025 10:26 AM EDT) Culture <10,000 CFU/mL Mixed urogenital, fecal, or skin kelsi present. 07/23/2025 8:34 AM EDT [facility] Urine Urine specimen obtained by clean catch procedure / Unknown Non-blood Collection / Unknown 07/22/2025 10:26 AM EDT 07/22/2025 10:49 AM EDT Dyllan Paul MD LAB MICROBIOLOGY - GENERAL OR DERABLES Final Result [facility] [address] [place] [address] documented in this encounter Visit Diagnoses Diagnosis Ureteral stone- Primary Calculus of ureter Ureteral stone- Primary Calculus of ureter Ureteral stone Calculus of ureter documented in this encounter Additional Health Concerns [...] documented as of this encounter Care Teams Rock Star Relationship Specialty Start Date End Date Murray Prajapati MD [address] [place] [address] PCP - General 03/06/23 Jaja Camara APRN [facility] [facility] [address] [place] [id number] Referring Physician Gastroenterology 03/06/23 Dyllan Paul MD [id number] [place] [address] Surgeon Urology 04/29/25 Wendy Card LPN VALUE-BASED TRANSFORMATION PROGRAM TCM Nurse 07/07/25 documented as of this encounter
[2025-08-05 15:22] LABS: Hematocrit 34.3 % (42.0-52.0); Hemoglobin 11.3 g/dL (14.1-18.0); Immature Granulocytes % 0.2 %; Mean Corpuscular HGB Conc 32.9 g/dL (31.8-35.4); Mean Corpuscular Hemoglobin 31.5 pg (27.0-31.2); Mean Corpuscular Volume 95.5 fl (80-94); Nucleated Red Blood Cells % 0 %; Platelet Count 89 K/mm3 (142-424); Red Blood Count 3.59 M/mm3 (4.60-6.20); Red Cell Distribution Width-SD 58.0 fL; White Blood Count 8.2 K/mm3 (4.8-10.8)
[2025-08-05 15:58] LABS: Albumin Level 3.1 g/dl (3.5-5.0); Chloride 108 mmol/L (98-107); Sodium 140 mmol/L (136-145)
[2025-08-05 15:59] LABS: Potassium 3.6 mmoL/L (3.5-5.1)
[2025-08-05 16:01] LABS: Alanine Aminotransferase 26 U/L (12-78); Albumin/Globulin Ratio 1.4 (1.1-1.8); Anion Gap 14.6 mEq/L (5-15); Aspartate Amino Transferase 51 U/L (17-59); Blood Urea Nitrogen 15 mg/dl (9-20); Carbon Dioxide 21 mmol/L (22.0-30.0); Creatinine,Serum 1.10 mg/dl (0.66-1.25); Estimated Glomerular Filt Rate 66 ml/min (>60); GFR (African American) 80 ML/MIN (>60); Globulin 2.2 g/dL (1.3-3.2); Total Protein,Serum 5.3 g/dl (6.3-8.2)
[2025-08-05 16:02] LABS: Alkaline Phosphatase 131 U/L (38-126); Bilirubin,Total 1.9 mg/dl (0.2-1.3); Calcium 8.6 mg/dl (8.4-10.2); Glucose 121 mg/dl (74-100)
--- OUTSIDE RECORDS SUMMARY | 2025-08-06 09:30 | XMS_ITS | Encounter Summary ---
Author Organization [facility] Address [address] [place] [address] Care Team Providers Care Permit Technician Name Role Phone Murray Prajapati MD Primary Care Provider [phone] Jaja Camara INDUSTRIAL MECHANIC Unavailable [phone] Dyllan Paul MD Unavailable [phone] Wendy Card ORE DIGGER Unavailable Unavaila ble Encounter Details Date Type Department Care Team (Late st Contact Info) Description 08/06/2025 9:30 AM EDT Pre-Admission Testing PAV S Anesthesia [address] [place] [address] Anesthesia Record Procedure Summary Procedure [...] Right, Upper 06/12/25 1530 by Estefany Singh, shuttle fitting supervisor 06/12/25; 1928; N; Y es; Surgical; Open [...] in a snf (including now)? No 07/28/2025 [facility] Utilities Answer Date Recorded In the past 12 months has e [employer], gas, oil, or water [employer] threatened to shut off services in your [...] drink first t rafy in the morning (EYE-HIGH ENERGY FORMING EQUIPMENT OPERATOR) to steady your nerves or to get [...] (Right). with Dyllan Paul MD on 08/28/2025 [facility] D/c summary ( 07/26 -07/31/2025)PMH Alcohol Use Disorder, alcoholic cirrhosis complicated by Hepatic Encephalopathy, esophageal varices, and ascites; prostate CA S/P robotic prostatectomy, chronic anemia, chronic hyponatremia, HLD, and recent history of PE on Lovenox who presents to ED from [facility] for higher level of care concerning LALITA, [...] CHF, dyspnea, dysrhythmias, murmur, orthopnea, pacemaker, past [place], PVD or syncope. hypertension (not currently): Exercise [...] tablet by mouth 3 times a day. tetprlxocxzl-rwwh-klqxdwdo-folic acid, Chew 1 tablet daily. naloxone, 1. [...] 10 MG tablet Take morning of surgery tryaegxlavym-vejj-jlflwxbv-folic acid (Centrum) chewable tablet Hold day of [...] coffee or tea. Park in Garage [address] Enter hospital on level C (pedway [...] card, photo ID, along with power of puttier, guardianship or advanced directives if applicable Do [...] Description 08/22/2025 9:00 AM EDT Office Visit [facility] Nephrology, Bone & Mineral Metabolism [address] [facility], [address] [place] [address] Kathia Watkins MD [address] [facility] [address] [place] [address] 08/28/2025 8:50 AM EDT Hospital Encounter PAV A OPERATING ROOM [address] [place] [address] Dyllan Paul MD [address] [place] [address] 08/28/2025 8:50 AM EDT Anesthesia Event [facility] A OPERATING ROOM [address] [place] [address] Paige Starkey APRN [address] [place] [address] 08/28/2025 8:50 AM EDT - 08/28/2025 10:35 AM EDT Surgery [facility] A OPERATING ROOM [address] [place] [address] Dyllan Paul MD [address] [place] [address] URETEROSCOPY, WITH LASER LITHOTRIPSY [15854 (CPT )] 10/28/2025 8:00 AM EST Office Visit [facility] [address] [place] [address] Pavan Aldrich MD [address] [place] [address] Scheduled Procedures Name Priority Associated [...] documented as of this encounter Care Teams Permit Technician Relationship Specialty Start Date End Date Murray Prajapati MD [address] [facility] [address] [place] [address] PCP - General 03/06/23 Jaja Camara APRN [address] [facility] [address] [place] [address] Referring Physician Gastroenterology 03/06/23 Dyllan Paul MD [address] [facility] [address] [place] [address] Surgeon Urology 04/29/25 Wendy Card LPN VALUE-BASED TRANSFORMATION PROGRAM TCM Nurse 07/07/25 documented as of this encounter
--- OUTSIDE RECORDS SUMMARY | 2025-08-06 12:23 | XMS_ITS ---
Author Organization [facility] Address [address] [place] [address] Care Team Providers Care Commercial Door Installer Name Role Phone Murray Prajapati MD Primary Care Provider [phone] Jaja Camara FRETTED INSTRUMENT INSPECTOR Unavailable [phone] Dyllan Paul MD Unavailable [phone] Wendy Card LENS INSERTER Unavailable Unavaila [facility] Transitional Care Management Status:Closed (Closed) Start date:07/07/2025 Enrollment date:07/07/2025 Enrollment reason:Identified using hospital discharge data End date:08/04/2025 Close reason:Patient Readmitted Overview This episode type is for outpatient care managers enrolling patients in the [facility] Transitional Care Management program. Continued Care and Services Coordination
--- OUTSIDE RECORDS SUMMARY | 2025-08-06 12:23 | XMS_ITS ---
Author Organization [facility] Address [address] [place] [address] Care Team Providers Care Tailor Garment Fitter Name Role Phone Murray Prajapati MD Primary Care Provider [phone] Jaja aCmara PARTS CLERK Unavailable [phone] Dyllan Paul MD Unavailable [phone] Wendy Card ASSOCIATE MERCHANT Unavailable Unavaila ble LINK Program Status:Closed (Closed) Start date:06/30/2025 Enrollment date:06/30/2025 End date:06/30/2025 Close reason:Not Eligible Overview TXP Continued Care and Services Coordination
--- OUTSIDE RECORDS SUMMARY | 2025-08-06 12:23 | XMS_ITS | Encounter Summary ---
Author Organization [facility] Address [address] [place] [address] Care Team Providers Care Boring Machine Operator Production Name Role Phone Murray Prajapati MD Primary Care Provider [phone] Jaja Camara PRODUCTS MECHANICAL DESIGN ENGINEER Unavailable [phone] Dyllan Paul MD Unavailable [phone] Reason for Visit * Reason Onset Date Comments [facility] Clinical Concern/Question 05/20/2025 Encounter Details Date Type Department Care Team (Late st Contact Info) Description 05/20/2025 Telephone [facility] [address] [place] [address] Dyllan Paul MD [address] [place] [address] [facility] Clinical Concern/Question Social History [...] in a fci (including now)? No 06/16/2025 Utilities Answer Date Recorded In the past 12 months has th e [employer], gas, oil, or water company threatened to [...] No Risk Indicated 06/20/2025 8:00 AM EDT Rosalio Santos, RN * Question Answer Date of Assessment Author 1. Wish to be (Past 1 Month) No 06/20/2025 8:00 AM EDT Samia Santos RN 2. Non-Specific Active Suici tyra Thoughts (Past 1 Month) No 06/20/2025 8:00 AM EDT Claudia Santos RN 6. Suicidal Behavior (Lifetime) No 8:00 AM EDT Samia Santos RN documented as of this encounter Miscellaneous Notes * Telephone Encounter - RichieRejiKrystina L - 05/20/2025 11:07 AM EDT Clinical Concern/Question Reason for Call: Patient is calling he has surgery on 06/12, He has to have some skin cancer removedoff his leg on Saturday 05/26 and he wanted to make sure that will not affect his upcoming surgery withour clinic on 06/12. Please call patient back with info. Thank you Best contact number: [phone] (mobile) Optimal time of day to reach caller: ANYTIME Additional comments/information from caller: None Note: Please do not reply to this message. Follow-up communication and further actions as a result of this message need to be communicated with the patient directly, if the patient is not active onMyChart. If the patient is active on MyChart, they will receive notification of the communication/outcome via [employer]. documented in this encounter Plan of Treatment Upcoming Encounters Date Type Department Care Team (Latest Contact Info) Description 08/22/2025 9:00 AM EDT Office Visit [facility] Nephrology, Bone & Mineral Metabolism [address] [facility], [address] [place] [address] Kathia Watkins MD [address] [facility] [address] [place] [address] 08/28/2025 8:50 AM EDT Hospital Encounter PAV A OPERATING ROOM [address] [place] [address] Dyllan Paul MD [address] [facility] [address] [place] [address] 08/28/2025 8:50 AM EDT Anesthesia Event PAV A OPERATING ROOM [address] [place] [address] Paige Starkey APRN [address] [place] [address] 08/28/2025 8:50 AM EDT - 08/28/2025 10:35 AM EDT Surgery [facility]AV A OPERATING ROOM [address] [place] [address] Dyllan Paul MD [address] [place] [address] URETEROSCOPY, WITH LASER LITHOTRIPSY [26713 (CPT )] 10/28/2025 8:00 AM EST Office Visit [place] [facility] [address] [place] [address] Pavan Aldrich MD [address] [facility] [address] [place] [address] Scheduled Procedures Name Priority Associated Diagnoses Date/Ti me URETEROSCOPY, WITH LASER LITHOTRIPSY Ureteral stone 08/28/2025 8:50 AM EDT documented as of this encounter Visit [...] documented as of this encounter Care Teams Boring Machine Operator Production Relationship Specialty Start Date End Date Murray Prajapati MD [address] [place] [address] PCP - General 03/06/23 Jaja Camara APRN [address] [place] [address] [place] [id number] Referring Physician Gastroenterology 03/06/23 Dyllan Paul MD [address] [facility] [address] [place] [address] Surgeon Urology 04/29/25 documented as of this encounter
--- OUTSIDE RECORDS SUMMARY | 2025-08-06 12:25 | XMS_ITS | Encounter Summary ---
Author Organization [facility] Address [address] [address] Care Team Providers Care Guardian Ad Litem Name Role Phone Murray Prajapati MD Primary Care Provider [phone] Jaja Camara EXPORT SALES MANAGER Unavailable [phone] Dyllan Paul MD Unavailable [phone] Reason for Visit * Reason Onset Date Comments [facility] Care 06/27/2025 Encounter Details Date Type Department Care Team (Late st Contact Info) Description 06/27/2025 Telephone [facility] [address] [place] [address] Dyllan Paul MD [address] [place] [address] [facility] Social History Tobacco Use Types Packs/Day Years [...] in the past 12 m [facility], were you homeless or living in a longterm (including now)? No 06/16/2025 CAGE ASSESSMENT Answer [...] drink first t rafy in the morning (EYE-BLEACHER GROUNDWOOD PULP) to steady your nerves or to get rid of a hangover? 0 06/28/2025 CAGE Questionnaire Score 0 025 Utilities Answer Date Recorded In the past 12 months has th e electric, gas, oil, or water [employer] threatened to shut off services in your [...] Guide (CG) called the patient (pt) at [phone] and successfully completed outreach. Pt reported they are doing well and have no needs at this time. documented in this encounter Plan of Treatment Upcoming Encounters Date Type Department Care Team (Latest Contact Info) Description 08/22/2025 9:00 AM EDT Office Visit Professional [facility] Nephrology, Bone & Mineral Metabolism [address] [facility], [address] [place] [address] Kathia Watkins MD [address] [facility] [address] [id number] 08/28/2025 8:50 AM EDT Hospital Encounter P[facility] A OPERATING ROOM [address] [place] [address] Dyllan Paul MD [address] [place] [address] 08/28/2025 8:50 AM EDT Anesthesia Event [facility] A OPERATING ROOM [address] [place] [address] Paige Starkey APRN [address] [place] [address] 08/28/2025 8:50 AM EDT - 08/28/2025 10:35 AM EDT Surgery [facility] A OPERATING ROOM [address] [place] [address] Dyllan Paul MD [address] [facility] [address] [place] [address] URETEROSCOPY, WITH LASER LITHOTRIPSY [[id number] (CPT )] 10/28/2025 8:00 AM EST Office Visit [place] [facility] [address], 2nd [place] [address] Pavan Aldrich MD [address] [facility] [address] [place] [address] Scheduled Procedures Name Priority Associated [...] documented as of this encounter Care Teams Guardian Ad Litem Relationship Specialty Start Date End Date Murray Prajapati MD [address] [place] [address] [address] [place] [address] PCP - General 03/06/23 Jaja Camara APRN 1210 [facility] [address] [place] [address] Referring Physician Gastroenterology 03/06/23 Dyllan Paul MD [id number] [place] [address] Surgeon Urology 04/29/25 documented as of this encounter
--- OUTSIDE RECORDS SUMMARY | 2025-08-06 12:25 | XMS_ITS | Encounter Summary ---
Author Organization [facility] Address [address] [place] [address] Care Team Providers Care Diesel Pile Driver Operator Name Role Phone Murray Prajapati MD Primary Care Provider [phone] Jaja Camara PULP GRINDER FEEDER Unavailable [phone] Dyllan Paul MD Unavailable [phone] Encounter Details Date Type Department Care Team [...] time in the past 12 m [facility], were you homeless or living in [...] Description 08/22/2025 9:00 AM EDT Office Visit [facility] Nephrology, Bone & Mineral Metabolism [address] [facility], [address] [place] [address] Kathia Watkins MD [address] [place] [address] 08/28/2025 8:50 AM EDT Hospital Encounter PAV A OPERATING ROOM [address] [place] [address] Dyllan Paul MD [address] [facility] [address] [place] [address] 08/28/2025 8:50 AM EDT Anesthesia Event PAV A OPERATING ROOM [address] [place] [address] Paige Starkey, TORREY [address] [place] [address] 08/28/2025 8:50 AM EDT - 08/28/2025 10:35 AM EDT Surgery PAV A OPERATING ROOM [address] [place] [address] Dyllan Paul MD [address] [facility] [address] [place] [address] URETEROSCOPY, WITH LASER LITHOTRIPSY [[id number] (CPT )] 10/28/2025 8:00 AM EST Office Visit [place] [facility] [address] 2nd [place] [address] Pavan Aldrich MD [address] [place] [address] Scheduled Procedures Name Priority Associated [...] documented as of this encounter Care Teams Diesel Pile Driver Operator Relationship Specialty Start Date End Date Murray Prajapati MD [address] [facility] [address] [place] [address] PCP - General 03/06/23 Jaja Camara APRN [address] [place] [address] Referring Physician Gastroenterology 03/06/23 Dyllan Paul MD [address] [address] Surgeon Urology 04/29/25 documented as of this encounter
--- OUTSIDE RECORDS SUMMARY | 2025-08-06 12:25 | XMS_ITS | Encounter Summary ---
Author Organization [facility] Address [address] [place] [address] Care Team Providers Care Kindergarten Aide Name Role Phone Murray Prajapati MD Primary Care Provider [phone] Jaja Camara DIRECTOR CLINICAL PHARMACOLOGY Unavailable [phone] Dyllan Paul MD Unavailable [phone] Encounter Details Date Type Department Care [...] AM EDT Office Visit Professional [facility] Nephrology, Bone & Mineral Metabolism [address] , [address] [place] [address] Kathia Watkins MD [address] [place] [address] 08/28/2025 8:50 AM EDT Hospital Encounter PAV A OPERATING ROOM [address] [place] [address] Dyllan Paul MD [address] [facility] [address] [place] [address] 08/28/2025 8:50 AM EDT Anesthesia Event PAV A OPERATING ROOM [address] [place] [address] Paige Starkey, TORREY [address] [facility] [address] [place] [address] 08/28/2025 8:50 AM EDT - 08/28/2025 10:35 AM EDT Surgery PAV A OPERATING ROOM [address] [place] [address] Dyllan Paul MD [address] [facility]00 [place] [address] URETEROSCOPY, WITH LASER LITHOTRIPSY [[id number] (CPT )] 10/28/2025 8:00 AM EST Office Visit [place] [facility] [address], 2nd [place] [address] Pavan Aldrich MD [address] [facility] [address] [place] [address] Scheduled Procedures Name Priority Associated [...] documented as of this encounter Care Teams Kindergarten Aide Relationship Specialty Start Date End Date Murray Prajapati MD 1210 [facility] [address] [place] [address] PCP - General 03/06/23 Jaja Camara APRN 1210 [facility] [address] [place] [address] Referring Physician Gastroenterology 03/06/23 Dyllan Paul MD [address] [address] Surgeon Urology 04/29/25 documented as of this encounter
--- OUTSIDE RECORDS SUMMARY | 2025-08-06 12:25 | XMS_ITS | Encounter Summary ---
Author Organization [facility] Address [address] [place] [address] Care Team Providers Care Body Trimmer Upholsterer Name Role Phone Murray Prajapati MD Primary Care Provider [phone] Jaja Camara INTERMEDIATE CARD TENDER Unavailable [phone] Dyllan Paul MD Unavailable [phone] Encounter Details Date Type Department Care Team [...] any time in the past 12 m [facility], were you homeless or living in a assisted (including now)? No 06/16/2025 Utilities Answer Date [...] 08/22/2025 9:00 AM EDT Office Visit Professional [facility] Nephrology, Bone & Mineral Metabolism [address] [facility], [address] [place] [address] Kathia Watkins MD [address] [facility] [address] [place] [address] 08/28/2025 8:50 AM EDT Hospital Encounter PAV A OPERATING ROOM [address] [place] [address] Dyllan Paul MD [address] [facility] [address] [place] [address] 08/28/2025 8:50 AM EDT Anesthesia Event PAV A OPERATING ROOM [address] [place] [address] Paige Starkey APRN [address] [place] [address] 08/28/2025 8:50 AM EDT - 08/28/2025 10:35 AM EDT Surgery PAV A OPERATING ROOM [address] [place] [address] Dyllan Paul MD [address] [facility] [address] [place] [address] URETEROSCOPY, WITH LASER LITHOTRIPSY [[id number] (CPT )] 10/28/2025 8:00 AM EST Office Visit [place] [facility] [address], 2nd [place] [address] Pavan Aldrich MD [address] [facility] [address] [place] [address] Scheduled Procedures Name Priority Associated [...] documented as of this encounter Care Teams Body Trimmer Upholsterer Relationship Specialty Start Date End Date Murray Prajapati MD [address] [place], [place] [address] PCP - General 03/06/23 Jaja Camara APRN [address] [place] [address] [place] [address] Referring Physician Gastroenterology 03/06/23 Dyllan Paul MD [address] [facility] [address] [place] [address] Surgeon Urology 04/29/25 documented as of this encounter
--- OUTSIDE RECORDS SUMMARY | 2025-08-06 12:25 | XMS_ITS | Encounter Summary ---
Author Organization [facility] Address [address] [place] [address] Care Team Providers Care Garnett Machine Operator Name Role Phone Murray Prajapati MD Primary Care Provider [phone] Jaja Camara AIR QUALITY SPECIALIST Unavailable [phone] Dyllan Paul MD Unavailable [phone] Encounter Details Date Type Department Care Team [...] in the past 12 m [facility], were you homeless or living in a penitentiary (including now)? No 06/16/2025 Utilities Answer Date [...] 08/22/2025 9:00 AM EDT Office Visit Professional [facility] Nephrology, Bone & Mineral Metabolism [address] [facility], [address] [place] [address] Kathia Watkins MD [address] [facility] 401 [place] [address] 08/28/2025 8:50 AM EDT Hospital Encounter PAV A OPERATING ROOM [address] [place] [address] Dyllan Paul MD [address] [facility] [address] [place] [address] 08/28/2025 8:50 AM EDT Anesthesia Event PAV A OPERATING ROOM [address] [place] [address] Paige Starkey APRN [address] [facility] [address] [place] [address] 08/28/2025 8:50 AM EDT - 08/28/2025 10:35 AM EDT Surgery PAV A OPERATING ROOM [address] [place] [address] Dyllan Paul MD [address] [facility] [address] [place] [address] URETEROSCOPY, WITH LASER LITHOTRIPSY [[id number] (CPT )] 10/28/2025 8:00 AM EST Office Visit [place] [facility] Medicine Special[facility] [address], 2nd [place] [address] Pavan Aldrich MD [address] [facility] [address] [place] [address] Scheduled Procedures Name Priority Associated [...] documented as of this encounter Care Teams Garnett Machine Operator Relationship Specialty Start Date End Date Murray Prajapati MD [address] [place] [address] PCP - General 03/06/23 Jaja Camara APRN [address] [place] [address] [place] [address] Referring Physician Gastroenterology 03/06/23 Dyllan Paul MD [address] [facility] [address] [place] [address] Surgeon Urology 04/29/25 documented as of this encounter
--- OUTSIDE RECORDS SUMMARY | 2025-08-06 12:25 | XMS_ITS | Encounter Summary ---
Author Organization [facility] Address [address] [place] [address] Care Team Providers Care Referral Rn Name Role Phone Murray Prajapati MD Primary Care Provider [phone] Jaja Camara EDGE STITCHER Unavailable [phone] Dyllan Paul MD Unavailable [phone] Encounter Details Date Type Department Care [...] Month) No 06/12/2025 12:41 PM EDT Erika Proctor, RN 6. Suicidal Behavior (Lifetime) No 06/12/2025 12:41 PM EDT Erika Proctor RN documented as of this encounter Plan of Treatment Upcoming Encounters Date Type Department Care Team (Latest Contact Info) Description 08/22/2025 9:00 AM EDT Office Visit [facility] Nephrology, Bone & Mineral Metabolism [address] [facility], [address] [place] [address] Kathia Watkins MD [address] [place] [address] 08/28/2025 8:50 AM EDT Hospital Encounter PAV A OPERATING ROOM [address] [place] [address] Dyllan Paul MD [address] [place] [facility] [address] [place] [address] 08/28/2025 8:50 AM EDT Anesthesia Event PAV A OPERATING ROOM [address] [place] [address] Paige Starkey, TORREY [address] [place] [address] [place] [address] 08/28/2025 8:50 AM EDT - 08/28/2025 10:35 AM EDT Surgery PAV A OPERATING ROOM [address] [place] [address] Dyllan Paul MD [address] [place] [address] [place] [address] URETEROSCOPY, WITH LASER LITHOTRIPSY [[id number] (CPT )] 10/28/2025 8:00 AM EST Office Visit [place] [facility] Medicine Special[facility] [address], 2nd [place] [address] Pavan Aldrich MD [address] [place] [address] [place] [address] Scheduled Procedures Name Priority Associated Diagnoses Date/Ti [...] documented as of this encounter Care Teams Referral Rn Relationship Specialty Start Date End Date Murray Prajapati MD 1210 [facility] [address] [place] [address] PCP - General 03/06/23 Jaja Camara APRN 1210 [facility] [address] [place] [address] Referring Physician Gastroenterology 03/06/23 Dyllan Paul MD [address] [place] [address] Surgeon Urology 04/29/25 documented as of this encounter
--- OUTSIDE RECORDS SUMMARY | 2025-08-06 12:27 | XMS_ITS | Encounter Summary ---
Author Organization [facility] Address [address] [place] [address] Care Team Providers Care Pit Furnace Melter Name Role Phone Murray Prajapati MD Primary Care Provider [phone] Jaja Camara INSTRUMENT ADJUSTER Unavailable [phone] Dyllan Paul MD Unavailable [phone] Encounter Details Date Type Department Care Team [...] any time in the past 12 m [facility], were you homeless or [...] Description 08/22/2025 9:00 AM EDT Office Visit [facility] Nephrology, Bone & Mineral Metabolism [address] [facility], [address] [place] [address] Kathia Watkins MD [address] [facility] [address] [place] [address] 08/28/2025 8:50 AM EDT Hospital Encounter PAV A OPERATING ROOM [address] [place] [address] Dyllan Paul MD [address] [facility] [address] [place] [address] 08/28/2025 8:50 AM EDT Anesthesia Event PAV A OPERATING ROOM [address] [place] [address] Paige Starkey, TORREY [address] [place] [address] 08/28/2025 8:50 AM EDT - 08/28/2025 10:35 AM EDT Surgery PAV A OPERATING ROOM [address] [place] [address] Dyllan Paul MD [address] [facility] [address] [place] [address] URETEROSCOPY, WITH LASER LITHOTRIPSY [[id number] (CPT )] 10/28/2025 8:00 AM EST Office Visit [place] [facility] Medicine Special[facility] [address], 2nd [place] [address] Pavan Aldrich MD [address] [place] [address] Scheduled Procedures Name Priority Associated [...] documented as of this encounter Care Teams Pit Furnace Melter Relationship Specialty Start Date End Date Murray Prajapati MD 1210 [facility] [address] [place], [place] [address] PCP - General 03/06/23 Jaja Camara APRN [address] [place] [address] [place] [address] Referring Physician Gastroenterology 03/06/23 Dyllan Paul MD [address] [place] [address] Surgeon Urology 04/29/25 documented as of this encounter
--- OUTSIDE RECORDS SUMMARY | 2025-08-06 12:27 | XMS_ITS | Encounter Summary ---
Author Organization [facility] Address [address] [place] [address] Care Team Providers Care Tax Collector Name Role Phone Murray Prajapati MD Primary Care Provider [phone] Jaja Camara AIR TECHNICIAN Unavailable [phone] Dyllan Paul MD Unavailable [phone] Wendy Card RETAIL SERVICE LEAD MERCHANDISER Unavailable Unavaila ble Encounter Details Date Type Department Care Team (Latest Contact Info) Description 08/06/2025 Travel Social History Tobacco Use Types Packs/Day [...] in the past 12 m [facility], were you homeless or living in a detention (including now)? No 07/28/2025 [facility] Utilities Answer Date Recorded In the [...] drink first t rafy in the morning (EYE-TRANSPORTATION ENGINEERING TECHNICIAN) to steady your nerves or to get [...] Description 08/22/2025 9:00 AM EDT Office Visit [facility] Nephrology, Bone & Mineral Metabolism [address] [facility], [address] [place] [address] Kathia Watkins MD [address] [facility] [address] [place] [address] 08/28/2025 8:50 AM EDT Hospital Encounter PAV A OPERATING ROOM [address] [place] [address] Dyllan Paul MD [address] [address] 08/28/2025 8:50 AM EDT Anesthesia Event PAV A OPERATING ROOM [address] [place] [address] Paige Starkey, AIR TECHNICIAN [address] [facility] [address] [place] [address] 08/28/2025 8:50 AM EDT - 08/28/2025 10:35 AM EDT Surgery PAV A OPERATING ROOM [address] [place] [address] Dyllan Paul MD [address] [facility]00 [place] [address] URETEROSCOPY, WITH LASER LITHOTRIPSY [[id number] (CPT )] 10/28/2025 8:00 AM EST Office Visit [place] [facility] Medicine Special[facility] [address] 2[address] [place] [address] Pavan Aldrich MD [address] [facility] [address] [place] [address] Scheduled Procedures Name Priority Associated [...] documented as of this encounter Care Teams Tax Collector Relationship Specialty Start Date End Date Murray Prajapati MD [address] [place] [address] PCP - General 03/06/23 Jaja Camara APRN 1210 [facility] [address] [place] [address] Referring Physician Gastroenterology 03/06/23 Dyllan Paul MD [address] [place] [address] Surgeon Urology 04/29/25 Wendy Card LPN VALUE-BASED TRANSFORMATION PROGRAM TCM Nurse 07/07/25 documented as of this encounter
--- OUTSIDE RECORDS SUMMARY | 2025-08-06 12:27 | XMS_ITS | Encounter Summary ---
Author Organization [facility] Address [address] [place] [address] Care Team Providers Care Wire Drawer Name Role Phone Murray Prajapati MD Primary Care Provider [phone] Jaja Camara MEDIA PROMOTER Unavailable [phone] Dyllan Paul MD Unavailable [phone] Marlin Martinez RN Unavailable Unavailable Wendy Card FLUX CORE WELDER Unavailable Unavaila ble Encounter Details Date Type Department Care Team (Late st Contact Info) Description 02/13/2025 Orders Only External Location [address] [place] [address] Provider, External Social History Tobacco Use Types [...] 08/22/2025 9:00 AM EDT Office Visit [facility] Nephrology, Bone & Mineral Metabolism [address] [facility], [address] [place] [address] Kathia Watkins MD [address] [facility] [address] [place] [address] 08/28/2025 8:50 AM EDT Hospital Encounter PAV A OPERATING ROOM [address] [place] [address] Dyllan Paul MD [address] [facility] [address] [place] [address] 08/28/2025 8:50 AM EDT Anesthesia Event PAV A OPERATING ROOM [address] [place] [address] Paige Starkey, MEDIA PROMOTER [address] [facility] [address] [place] [address] 08/28/2025 8:50 AM EDT - 08/28/2025 10:35 AM EDT Surgery PAV A OPERATING ROOM [address] [place] [address] Dyllan Paul MD [address] [place] [address] URETEROSCOPY, WITH LASER LITHOTRIPSY [[id number] (CPT )] 10/28/2025 8:00 AM EST Office Visit [place] [facility] Medicine [facility] [address], 2nd [place] [address] Pavan Aldrich MD [address] [facility] [address] [place] [address] Scheduled Procedures Name Priority Associated [...] Nuclear Medicine 02/13/2025 12:4 1 PM EDT us External Provider IMG NM PROCEDURES Final Result [...] as of this encounter Care Teams Wire Drawer Relationship Specialty Start Date End Date Murray Prajapati MD 1210 [facility] [address] [place] [address] PCP - General 03/06/23 Jaja Camara APRN 1210 [facility] [address] [place] [address] Referring Physician Gastroenterology 03/06/23 Dyllan Paul MD [address] [facility] [address] [place] [address] Surgeon Urology 04/29/25 Marlin Martinez, RN [facility] Registered Nurse 06/30/25 06/30/25 Wendy Card LPN VALUE-BASED TRANSFORMATION PROGRAM TCM Nurse 07/07/25 documented as of this encounter
--- OUTSIDE RECORDS SUMMARY | 2025-08-06 12:27 | XMS_ITS | Clinical Summary ---
Author Organization [facility] Address [address] [place] [address] Care Team Providers Care Tire Bagger Name Role Phone Murray Prajapati MD Primary Care Provider [phone] Encounters Date Type Department Care Team Description 06/03/2025 Hospital Encounter [facility] OR [address] [place] [address] Jayme Pereyra Jr., MD from [...] LOWE Date of :1962 (Home) Address: [address] [place] [address] Payer ID:[id number] (NAIC) Type:Not on file Address: [facility] [id number] [id number] Care Teams Tire Bagger Relationship Specialty Start Date End Date Murray Prajapati MD [address] [facility] [address] [place] [address] PCP - General Internal Medicine 05/29/24
--- OUTSIDE RECORDS SUMMARY | 2025-08-06 12:27 | XMS_ITS | Encounter Summary ---
Author Organization [facility] Address [address] [place] [address] Care Team Providers Care Machine Shop Repair Technician Name Role Phone Murray Prajapati MD Primary Care Provider [phone] Jaja Camara MERCHANDISING TEAM LEAD Unavailable [phone] Dyllan Paul MD Unavailable [phone] Encounter Details Date Type Department Care Team [...] any time in the past 12 m [facility], were you homeless or living in a usp (including now)? No 06/16/2025 Utilities Answer Date Recorded In the past 12 months has th e [email or web address], gas, oil, or water company threatened to [...] Nephrology, Bone & Mineral Metabolism [address] [facility], [address] [place] [address] Kathia Watkins MD [address] [facility] [address] [place] [address] 08/28/2025 8:50 AM EDT Hospital Encounter PAV A OPERATING ROOM [address] [place] [address] Dyllan Paul MD [address] [facility] [address] [place] [address] 08/28/2025 8:50 AM EDT Anesthesia Event P[facility] A OPERATING ROOM [address] [place] [address] Paige Starkey, TORREY [address] [place] [address] 08/28/2025 8:50 AM EDT - 08/28/2025 10:35 AM EDT Surgery PAV A OPERATING ROOM [address] [place] [address] Dyllan Paul MD [address] [facility] [address] [place] [address] URETEROSCOPY, WITH LASER LITHOTRIPSY [[id number] (CPT )] 10/28/2025 8:00 AM EST Office Visit [place] [facility] [address] 2nd [place] [address] Pavan Aldrich MD [address] [place] [address] Scheduled Procedures Name Priority Associated [...] documented as of this encounter Care Teams Machine Shop Repair Technician Relationship Specialty Start Date End Date Murray Prajapati MD [address] [facility] [address] [place], [place] [id number] PCP - General 03/06/23 Jaja Camara APRN [address] [place] [address] Referring Physician Gastroenterology 03/06/23 Dyllan Paul MD [address] [place] [address] Surgeon Urology 04/29/25 documented as of this encounter
--- OUTSIDE RECORDS SUMMARY | 2025-08-06 12:27 | XMS_ITS | Encounter Summary ---
Author Organization [facility] Address [address] [id number] Care Team Providers Care Curator Of Manuscripts Name Role Phone Murray Prajapati MD Primary Care Provider [phone] Jaja Camara ACADEMIC ADVISOR Unavailable [phone] Dyllan Paul MD Unavailable [phone] Marlin Martinez RN Unavailable Unavailable Wendy Card DONOR SPECIALIST Unavailable Unavaila ble Encounter Details Date Type Department Care Team (Late st Contact Info) Description 03/26/2025 Lab Requisition P[facility] H Lab [address] [place] [address] Dyllan Paul MD [address] [facility] [address] [place] [address] Elevated prostate specific antigen (PSA) Social History [...] Description 08/22/2025 9:00 AM EDT Office Visit [facility] Nephrology, Bone & Mineral Metabolism [address] [facility], [address] [place] [address] Kathia Watkins MD [address] [place] [address] 08/28/2025 8:50 AM EDT Hospital Encounter PAV A OPERATING ROOM [address] [place] [address] Dyllan Paul MD [address] [address] 08/28/2025 8:50 AM EDT Anesthesia Event PAV A OPERATING ROOM [address] [place] [address] Paige Starkey APRN [address] [facility] [address] [place] [address] 08/28/2025 8:50 AM EDT - 08/28/2025 10:35 AM EDT Surgery PAV A OPERATING ROOM [address] [place] [address] Dyllan Paul MD [address] [place] [address] URETEROSCOPY, WITH LASER LITHOTRIPSY [[id number] (CPT )] 10/28/2025 8:00 AM EST Office Visit [place] [facility] [address] 2nd [place] [address] Pavan Aldrich MD [address] [place] [address] Scheduled Procedures Name Priority Associated Diagnoses Date/Ti me URETEROSCOPY, WITH LASER LITHOTRIPSY Ureteral stone 08/28/2025 8:50 AM EDT documented as of this encounter Procedures Procedure Name Priority Date/Time Associated Diagnosis Comments SURGICAL PATHOLOGY CONSULT Routine 03/26/2025 1:30 PM EDT Elevated prostate specific antigen (PSA) documented in this encounter Results * Surgical Pathology Consult (03/26/2025 1:30 PM EDT) Case Report Sugical Pathology Consult Case: [id number] Authorizing Provider: Dyllan Paul MD Collected: 03/26/2025 1330 Ordering Location: [facility] Lab Received: 03/26/2025 1330 Pathologist: Vandana Levine MD Specimen: Prostate, [id number] 03/27/2025 10:44 AM EDT [facility] Final Diagnosis PROSTATE, NEEDLE CORE [...] CARLEY PATTERN 4). 03/27/2025 10:44 AM EDT [facility] at 1044 EDT Comment Perineural invasion is identified. Cribriform pattern 4 is also seen. 03/27/2025 10:44 AM EDT [facility] Clinical Information R97.20 - Elevated prostate specific antigen (PSA) [ICD-10-CM] 03/27/2025 10:44 AM EDT [facility] Gross Description A. [id number] Received along with a corresponding pathology report from [facility] are 9 slides labeled outside case: [id number] collected on 01/22/2025. 03/27/2025 10:44 AM EDT [facility] Tissue Prostate / Unknown 1:30 PM EDT 03/26/2025 1:30 PM EDT Dyllan Paul MD LAB PATHOLOGY ORDERABLES Francia lezama Result [facility] [address] [place] [address] documented in this encounter Visit Diagnoses Diagnosis [...] documented as of this encounter Care Teams Curator Of Manuscripts Relationship Specialty Start Date End Date Murray Prajapati MD [address] [facility] [address] [place] [address] PCP - General 03/06/23 Jaja Camara APRN [address] [facility] [address] [place] [id number] Referring Physician Gastroenterology 03/06/23 Dyllan Paul MD [address] [address] Surgeon Urology 04/29/25 Marlin Martinez, RN [facility] Registered Nurse 06/30/25 06/30/25 Wendy Card LPN VALUE-BASED TRANSFORMATION PROGRAM TCM Nurse 07/07/25 documented as of this encounter
--- OUTSIDE RECORDS SUMMARY | 2025-08-06 12:27 | XMS_ITS | Encounter Summary ---
Author Organization [facility] Address [address] [place] [address] Care Team Providers Care Certified Medication Aide Name Role Phone Murray Prajapati MD Primary Care Provider [phone] Jaja Camara DUST CONTROL ENGINEER Unavailable [phone] Dyllan Paul MD Unavailable [phone] Marlin Martinez RN Unavailable Unavailable Wendy Card EQUIPMENT VALIDATION ENGINEER Unavailable Unavaila ble Reason for Visit * Reason Comments Med Refill Encounter Details Date Type Department Care Team (Late st Contact Info) Description 06/18/2025 Refill [facility] [address] [facility] [address] [place] [address] Virginia Campa MD [address] [facility] [address] [place] [address] Esophageal varices without bleeding, unspecified [...] in a longterm (including now)? No 06/16/2025 Utilities Answer Date Recorded In the past 12 months has th e [employer], gas, oil, or water [employer] threatened to shut off services in your [...] Month) No 025 8:00 AM EDT Vira Hernandez RN 2. Non-Specific Active Suici tyra Thoughts (Past 1 Month) No 06/21/2025 8:00 AM EDT Vira Hernandez , RN 6. Suicidal Behavior (Lifetime) No 8:00 AM EDT Vira Hernandez RN documented as of this encounter Plan of Treatment Upcoming Encounters Date Type Department Care Team (Latest Contact Info) Description 08/22/2025 9:00 AM EDT Office Visit [facility] Nephrology, Bone & Mineral Metabolism [address] [facility], [address] [place] [address] Kathia Watkins MD [address] [place] [address] 08/28/2025 8:50 AM EDT Hospital Encounter PAV A OPERATING ROOM [address] [place] [address] Dyllan Paul MD [address] [place] [address] 08/28/2025 8:50 AM EDT Anesthesia Event PAV A OPERATING ROOM [address] [place] [address] Paige Starkey, DUST CONTROL ENGINEER [address] [place] [address] 08/28/2025 8:50 AM EDT - 08/28/2025 10:35 AM EDT Surgery PAV A OPERATING ROOM [address] [place] [address] Dyllan Paul MD [address] [place] [address] URETEROSCOPY, WITH LASER LITHOTRIPSY [[id number] (CPT )] 10/28/2025 8:00 AM EST [facility] Visit [place] [facility] [address], 2nd [place] [address] Pavan Aldrich MD [address] [place] [address] Scheduled Procedures Name Priority Associated Diagnoses Date/Ti [...] documented as of this encounter Care Teams Certified Medication Aide Relationship Specialty Start Date End Date Murray Prajapati MD [address] [place] [address] PCP - General 03/06/23 Jaja Camara, DUST CONTROL ENGINEER [address] [facility] [address] [place] [address] Referring Physician Gastroenterology 03/06/23 Dyllan Paul MD [address] [facility] [facility] [address] [place] [address] Surgeon Urology 04/29/25 Marlin Martinez, RN [facility] CD[facility] Registered Nurse 06/30/25 06/30/25 Wendy Card LPN VALUE-BASED TRANSFORMATION PROGRAM TCM Nurse 07/07/25 documented as of this encounter
--- OUTSIDE RECORDS SUMMARY | 2025-08-06 12:27 | XMS_ITS | Encounter Summary ---
Author Organization [facility] Address [address] [place] [address] Care Team Providers Care Processing Associate Name Role Phone Murray Prajapati MD Primary Care Provider [phone] Jaja Camara ARTIFICIAL INTELLIGENCE SPECIALIST Unavailable [phone] Dyllan Paul MD Unavailable [phone] Marlin Martinez RN Unavailable Unavailable Wendy Card MAGNETO ELECTRICIAN Unavailable Unavaila ble Encounter Details Date Type Department Care Team (Late st Contact Info) Description 08/02/2024 Orders Only External Location [address] [place] [address] Provider, External Social History Tobacco Use Types [...] 08/22/2025 9:00 AM EDT Office Visit [facility] Nephrology, Bone & Mineral Metabolism [address] [facility], [address] [place] [address] Kathia Watkins MD [address] [facility] [address] [place] [address] 08/28/2025 8:50 AM EDT Hospital Encounter PAV A OPERATING ROOM [address] [place] [address] Dyllan Paul MD [address] [facility] [address] [place] [address] 08/28/2025 8:50 AM EDT Anesthesia Event PAV A OPERATING ROOM [address] [place] [address] Paige Starkey, ARTIFICIAL INTELLIGENCE SPECIALIST [address] [place] [address] 08/28/2025 8:50 AM EDT - 08/28/2025 10:35 AM EDT Surgery PAV A OPERATING ROOM [address] [place] [address] Dyllan Paul MD [address] [place] [address] URETEROSCOPY, WITH LASER LITHOTRIPSY [[id number] (CPT )] 10/28/2025 8:00 AM EST Office Visit [place] [facility] [address], 2nd [place] [address] Pavan Aldrich MD [address] [facility] [address] [place] [address] Scheduled Procedures Name Priority Associated [...] documented as of this encounter Care Teams Processing Associate Relationship Specialty Start Date End Date Murray Prajapati MD [address] [facility] [address] [place] [address] PCP - General 03/06/23 Jaja Camara APRN [address] [facility] [address] [place] [address] Referring Physician Gastroenterology 03/06/23 Dyllan Paul MD [address] [facility] [address] [place] [address] Surgeon Urology 04/29/25 Marlin Martinez, RN [facility] Registered Nurse 06/30/25 06/30/25 Wendy Card LPN VALUE-BASED TRANSFORMATION PROGRAM TCM Nurse 07/07/25 documented as of this encounter
--- OUTSIDE RECORDS SUMMARY | 2025-08-06 12:27 | XMS_ITS | Encounter Summary ---
Author Organization Healthcare Address [address] [place] [address] Care Team Providers Care Market Basket Maker Name Role Phone Murray Prajapati MD Primary Care Provider [phone] Jaja Camara CHUTE BOSS Unavailable [phone] Dyllan Paul MD Unavailable [phone] Marlin Martinez RN Unavailable Unavailable Wendy Card CITY COLLECTOR Unavailable Unavaila ble Encounter Details Date Type Department Care Team (Late st Contact Info) Description 05/13/2024 Orders Only External Location [address] [place] [address] Provider, External Social History Tobacco Use Types [...] 08/22/2025 9:00 AM EDT Office Visit [facility] Nephrology, Bone & Mineral Metabolism [address] [facility], [address] [place] [address] Kathia Watkins MD [address] [facility] [address] [place] [address] 08/28/2025 8:50 AM EDT Hospital Encounter PAV A OPERATING ROOM [address] [place] [address] Dyllan Paul MD [address] [facility] [address] [place] [address] 08/28/2025 8:50 AM EDT Anesthesia Event PAV A OPERATING ROOM [address] [place] [address] Paige Starkey, CHUTE BOSS [address] [place] [address] 08/28/2025 8:50 AM EDT - 08/28/2025 10:35 AM EDT Surgery PAV A OPERATING ROOM [address] [place] [address] Dyllan Paul MD [address] [place] [address] URETEROSCOPY, WITH LASER LITHOTRIPSY [[id number] (CPT )] 10/28/2025 8:00 AM EST Office Visit [place] [facility] [address], 2nd [place] [address] Pavan Aldrich MD [address] [facility] [address] [place] [address] Scheduled Procedures Name Priority Associated [...] documented as of this encounter Care Teams Market Basket Maker Relationship Specialty Start Date End Date Murray Prajapati MD [address] [facility] [address] [place] [address] PCP - General 03/06/23 Jaja Camara, CHUTE BOSS [address] [facility] [address] [place] [address] Referring Physician Gastroenterology 03/06/23 Dyllan Paul MD [address] [facility] [address] [place] [address] Surgeon Urology 04/29/25 Marlin Martinez, RN [facility] Registered Nurse 06/30/25 06/30/25 Wendy Card LPN VALUE-BASED TRANSFORMATION PROGRAM TCM Nurse 07/07/25 documented as of this encounter
--- OUTSIDE RECORDS SUMMARY | 2025-08-06 12:27 | XMS_ITS | Encounter Summary ---
Author Organization Healthcare Address [address] [place] [address] Care Team Providers Care Grit Removal Operator Name Role Phone Murray Prajapati MD Primary Care Provider [phone] Jaja Camara ENVIRONMENTAL FIELD OFFICE MANAGER Unavailable [phone] Dyllan Paul MD Unavailable [phone] Marlin Martinez RN Unavailable Unavailable Wendy Card SPEECH AND LANGUAGE SPECIALIST Unavailable Unavaila ble Encounter Details Date Type Department Care Team (Late st Contact Info) Description 07/31/2024 Orders Only External Location [address] [place] [address] Provider, External Social History Tobacco Use Types [...] 08/22/2025 9:00 AM EDT Office Visit [facility] Nephrology, Bone & Mineral Metabolism [address] [facility], [address] [place] [address] Kathia Watkins MD [address] [facility] [address] [place] [address] 08/28/2025 8:50 AM EDT Hospital Encounter PAV A OPERATING ROOM [address] [place] [address] Dyllan Paul MD [address] [facility] [address] [place] [address] 08/28/2025 8:50 AM EDT Anesthesia Event PAV A OPERATING ROOM [address] [place] [address] Paige Starkey, ENVIRONMENTAL FIELD OFFICE MANAGER [address] [facility] [address] [place] [address] 08/28/2025 8:50 AM EDT - 08/28/2025 10:35 AM EDT Surgery PAV A OPERATING ROOM [address] [place] [address] Dyllan Paul MD [address] [place] [address] URETEROSCOPY, WITH LASER LITHOTRIPSY [[id number] (CPT )] 10/28/2025 8:00 AM EST Office Visit [place] [facility] [address], [address] [place] [address] Pavan Aldrich MD [address] [facility] [address] [place] [address] Scheduled Procedures Name Priority Associated [...] documented as of this encounter Care Teams Grit Removal Operator Relationship Specialty Start Date End Date Murray Prajapati MD [address] [facility] [address] [place] [address] PCP - General 03/06/23 Jaja Camara, ENVIRONMENTAL FIELD OFFICE MANAGER 1210 [facility] [address] [place] [address] Referring Physician Gastroenterology 03/06/23 Dyllan Paul MD [address] [facility] [address] [place] [address] Surgeon Urology 04/29/25 Marlin Martinez, RN [facility] CDU- OBSERVATION UNIT Registered Nurse 06/30/25 06/30/25 Wendy Card LPN VALUE-BASED TRANSFORMATION PROGRAM TCM Nurse 07/07/25 documented as of this encounter
--- OUTSIDE RECORDS SUMMARY | 2025-08-06 12:27 | XMS_ITS | Encounter Summary ---
Author Organization Healthcare Address [address] [place] [address] Care Team Providers Care Nutritional Health Coach Name Role Phone Murray Prajapati MD Primary Care Provider [phone] Jaja Camara BUSINESS ADMINISTRATION PROGRAM CHAIR Unavailable [phone] Dyllan Paul MD Unavailable [phone] Marlin Martinez RN Unavailable Unavailable Wendy Card NEUROPSYCHIATRIST Unavailable Unavaila ble Encounter Details Date Type Department Care Team (Late st Contact Info) Description 06/28/2024 Orders Only External Location [address] [place] [address] Provider, External Social History Tobacco Use Types [...] [address] [facility], [address] [place] [address] Kathia Watkins MD [address] [facility] [address] [place] [address] 08/28/2025 8:50 AM EDT Hospital Encounter PAV A OPERATING ROOM [address] [place] [address] Dyllan Paul MD [address] [facility] [address] [place] [address] 08/28/2025 8:50 AM EDT Anesthesia Event PAV A OPERATING ROOM [address] [place] [address] Paige Starkey, BUSINESS ADMINISTRATION PROGRAM CHAIR [address] [facility] [address] [place] [address] 08/28/2025 8:50 AM EDT - 08/28/2025 10:35 AM EDT Surgery PAV A OPERATING ROOM [address] [place] [address] Dyllan Paul MD [address] [place] [address] URETEROSCOPY, WITH LASER LITHOTRIPSY [[id number] (CPT )] 10/28/2025 8:00 AM EST Office Visit [place] [facility] [address] 2nd [place] [address] Pavan Aldrich MD [address] [facility] [address] [place] [address] Scheduled Procedures Name Priority Associated [...] documented as of this encounter Care Teams Nutritional Health Coach Relationship Specialty Start Date End Date Murray Prajapati MD 1210 [facility] [address] [place] [address] PCP - General 03/06/23 Jaja Camara, BUSINESS ADMINISTRATION PROGRAM CHAIR [address] [facility] [address] [place] [address] Referring Physician Gastroenterology 03/06/23 Dyllan Paul MD [address] [place] [address] Surgeon Urology 04/29/25 Marlin Martinez, RN [facility] CDU- OBSERVATION UNIT Registered Nurse 06/30/25 06/30/25 Wendy Card LPN VALUE-BASED TRANSFORMATION PROGRAM TCM Nurse 07/07/25 documented as of this encounter
--- OUTSIDE RECORDS SUMMARY | 2025-08-06 12:27 | XMS_ITS | Encounter Summary ---
Author Organization Healthcare Address [address] [place] [address] Care Team Providers Care Referral Rn Name Role Phone Murray Prajapati MD Primary Care Provider [phone] Jaja Camara WARD SECRETARY Unavailable [phone] Dyllan Paul MD Unavailable [phone] Marlin Martinez RN Unavailable Unavailable Wendy Card EXPRESSIVE ART THERAPIST Unavailable Unavaila ble Encounter Details Date Type Department Care Team (Late st Contact Info) Description 08/02/2024 Orders Only External Location [address] [place] [address] Provider, External Social History Tobacco Use Types [...] 08/22/2025 9:00 AM EDT Office Visit [facility] Nephrology, Bone & Mineral Metabolism [address] [facility], [address] [place] [address] Kathia Watkins MD [address] [facility] [address] [place] [address] 08/28/2025 8:50 AM EDT Hospital Encounter PAV A OPERATING ROOM [address] [place] [address] Dyllan Paul MD [address] [facility] [address] [place] [address] 08/28/2025 8:50 AM EDT Anesthesia Event PAV A OPERATING ROOM [address] [place] [address] Paige Starkey, WARD SECRETARY [address] [place] [address] 08/28/2025 8:50 AM EDT - 08/28/2025 10:35 AM EDT Surgery PAV A OPERATING ROOM [address] [place] [address] Dyllan Paul MD [id number] [place] [address] URETEROSCOPY, WITH LASER LITHOTRIPSY [[id number] (CPT )] 10/28/2025 8:00 AM EST Office Visit [place] [facility] [address], 2nd [place] [address] Pavan Aldrich MD [address] [facility] [address] [place] [address] Scheduled Procedures Name Priority Associated [...] [facility] [address] [place] [address] PCP - General 03/06/23 Jaja Camara APRN 1210 [facility] [address] [place] [address] Referring Physician Gastroenterology 03/06/23 Dyllan Paul MD [address] [facility] [address] [place] [address] Surgeon Urology 04/29/25 Marlin Martinez, RN [facility] CDU- OBSERVATION UNIT Registered Nurse 06/30/25 06/30/25 Wendy Card LPN VALUE-BASED TRANSFORMATION PROGRAM TCM Nurse 07/07/25 documented as of this encounter
--- OUTSIDE RECORDS SUMMARY | 2025-08-06 12:27 | XMS_ITS | Encounter Summary ---
Author Organization [facility] Address [address] [place] [address] Care Team Providers Care Solid Waste Manager Name Role Phone Murray Prajapati MD Primary Care Provider [phone] Jaja Camara GUEST SERVICES MANAGER Unavailable [phone] Dyllan Paul MD Unavailable [phone] Encounter Details Date Type Department Care [...] time in the past 12 m [facility], were you homeless or living in [...] Description 08/22/2025 9:00 AM EDT Office Visit [facility] Nephrology, Bone & Mineral Metabolism [address] [facility], [address] [place] [address] Kathia Watkins MD [address] [place] [address] 08/28/2025 8:50 AM EDT Hospital Encounter PAV A OPERATING ROOM [address] [place] [address] Dyllan Paul MD [address] [facility] [address] [place] [address] 08/28/2025 8:50 AM EDT Anesthesia Event PAV A OPERATING ROOM [address] [place] [address] Paige Starkey, TORREY [address] [place] [address] 08/28/2025 8:50 AM EDT - 08/28/2025 10:35 AM EDT Surgery PAV A OPERATING ROOM [address] [place] [address] Dyllan Paul MD [address] [facility] [address] [place] [address] URETEROSCOPY, WITH LASER LITHOTRIPSY [[id number] (CPT )] 10/28/2025 8:00 AM EST Office Visit [place] [facility] [address] 2[address] [place] [address] Pavan Aldrich MD [address] [place] [address] Scheduled Procedures Name Priority Associated [...] documented as of this encounter Care Teams Solid Waste Manager Relationship Specialty Start Date End Date Murray Prajapati MD 1210 [facility] [address] [place] [address] PCP - General 03/06/23 Jaja Camara APRN [address] [place] [address] Referring Physician Gastroenterology 03/06/23 Dyllan Paul MD [address] [address] Surgeon Urology 04/29/25 documented as of this encounter
--- OUTSIDE RECORDS SUMMARY | 2025-08-06 12:27 | XMS_ITS | Encounter Summary ---
Author Organization Healthcare Address [address] [place] [address] Care Team Providers Care Digital Community Manager Name Role Phone Murray Prajapati MD Primary Care Provider [phone] Jaja Camara RECONSIGNMENT CLERK Unavailable [phone] Dyllan Paul MD Unavailable [phone] Marlin Martinez RN Unavailable Unavailable Wendy Card DENTAL CERAMIST ASSISTANT Unavailable Unavaila ble Encounter Details Date Type Department Care Team (Late st Contact Info) Description 07/31/2024 Orders Only External Location [address] [place] [id number] Provider, External Social History Tobacco Use Types [...] 08/22/2025 9:00 AM EDT Office Visit Professional [facility] Nephrology, Bone & Mineral Metabolism [address] [facility] [address], [address] [place] [address] Kathia Watkins MD [address] [facility] [address] [place] [address] 08/28/2025 8:50 AM EDT Hospital Encounter [facility] [address] [place] [address] Dyllan Paul MD [address] [facility] [address] [place] [address] 08/28/2025 8:50 AM EDT Anesthesia Event [facility] [address] [place] [address] Paige Starkey, RECONSIGNMENT CLERK [address] [place] [address] 08/28/2025 8:50 AM EDT - 08/28/2025 10:35 AM EDT Surgery [facility] [address] [place] [address] Dyllan Paul MD [address] [facility] [place] [address] URETEROSCOPY, WITH LASER LITHOTRIPSY [[id number] (CPT )] 10/28/2025 8:00 AM EST Office Visit [place] [facility] [address] [place] [address] Pavan Aldrich MD [address] [place] [address] Scheduled Procedures Name Priority Associated [...] documented as of this encounter Care Teams Digital Community Manager Relationship Specialty Start Date End Date Murray Prajapati MD [address] [facility] [address] [place] [address] PCP - General 03/06/23 Jaja Camara APRN [address] [facility] [address] [place] [address] Referring Physician Gastroenterology 03/06/23 Dyllan Paul MD [address] [facility] [address] [place] [address] Surgeon Urology 04/29/25 Marlin Martinez, RN [facility] CDU- OBSERVATION UNIT Registered Nurse 06/30/25 06/30/25 Wendy Card LPN VALUE-BASED TRANSFORMATION PROGRAM TCM Nurse 07/07/25 documented as of this encounter
--- OUTSIDE RECORDS SUMMARY | 2025-08-06 12:27 | XMS_ITS | Encounter Summary ---
Author Organization Healthcare Address [address] [place] [address] Care Team Providers Care Kinesiologist Name Role Phone Murray Prajapati MD Primary Care Provider [phone] Jaja Camara BRAKESHOE REPAIRER Unavailable [phone] Dyllan Paul MD Unavailable [phone] Marlin Martinez RN Unavailable Unavailable Wendy Card MIXER DIAMOND POWDER Unavailable Unavaila ble Encounter Details Date Type Department Care Team (Late st Contact Info) Description 02/13/2025 Orders Only External Location [address] [place] [id number] Provider, External Social History Tobacco Use Types [...] 9:00 AM EDT Office Visit Professional [facility] Nephrology, Bone & Mineral Metabolism [address], [address] [place] [address] Kathia Watkins MD [address] [facility] [address] [facility] [address] [place] [address] 08/28/2025 8:50 AM EDT Hospital Encounter [facility] A OPERATING ROOM [address] [place] [address] Dyllan Paul MD [address] [facility] [address] [place] [address] 08/28/2025 8:50 AM EDT Anesthesia Event [facility]PERATING ROOM [address] [place] [address] Paige Starkey, BRAKESHOE REPAIRER [address] [facility] [address] [place] [address] 08/28/2025 8:50 AM EDT - 08/28/2025 10:35 AM EDT Surgery [facility]PERATING ROOM [address] [place] [address] Dyllan Paul MD [id number] [place] [address] URETEROSCOPY, WITH LASER LITHOTRIPSY [[id number] (CPT )] 10/28/2025 8:00 AM EST Office Visit [place] [facility] [address] [place] [address] Pavan Aldrich MD [address] [facility] [address] [place] [address] Scheduled Procedures Name Priority Associated [...] Nuclear Medicine 02/13/2025 12:0 0 PM EDT us External Provider IMG NM [...] documented as of this encounter Care Teams Kinesiologist Relationship Specialty Start Date End Date Murray Prajapati MD [address] [facility] [address] [place] [address] PCP - General 03/06/23 Jaja Camara APRN [address] [facility] [address] [place] [address] Referring Physician Gastroenterology 03/06/23 Dyllan Paul MD [address] [facility] [address] [place] [address] Surgeon Urology 04/29/25 Marlin Martinez, RN [facility] CDU- OBSERVATION [facility]IT Registered Nurse 06/30/25 06/30/25 Wendy Card LPN VALUE-BASED TRANSFORMATION PROGRAM TCM Nurse 07/07/25 documented as of this encounter
--- OUTSIDE RECORDS SUMMARY | 2025-08-06 12:28 | XMS_ITS | Encounter Summary ---
Author Organization [facility] Address [address] [id number] Care Team Providers Care Knot Picker Cloth Name Role Phone Murray Prajapati MD Primary Care Provider [phone] Jaja Camara BOLT MACHINE OPERATOR Unavailable [phone] Dyllan Paul MD Unavailable [phone] Encounter Details Date Type Department Care Team (Late st Contact Info) Description 06/28/2025 Telephone [place] [facility] [address] [place] [address] Eugene Ruggiero MD [address] [place] [id number] Social History Tobacco Use Types Packs/Day Years [...] any time in the past 12 m [facility], were you homeless or living in a prison (including now)? No 06/16/2025 CAGE ASSESSMENT Answer [...] drink first t rafy in the morning (EYE-STATE HISTORICAL SOCIETY DIRECTOR) to steady your nerves or to get rid of a hangover? 0 06/28/2025 CAGE Questionnaire Score 0 025 Utilities Answer Date Recorded In the past 12 months has th e [employer], gas, oil, or water company threatened to [...] 08/22/2025 9:00 AM EDT Office Visit Professional [facility] Nephrology, Bone & Mineral Metabolism [address], [address] [place] [address] Kathia Watkins MD [address] [facility] [address] [place] [address] 08/28/2025 8:50 AM EDT Hospital Encounter P[facility] A OPERATING ROOM [address] [place] [address] Dyllan Paul MD [address] [facility] [address] [place] [address] 08/28/2025 8:50 AM EDT Anesthesia Event [facility] OPERATING ROOM [address] [place] [address] Paige Starkey APRN [address] [place] [address] 08/28/2025 8:50 AM EDT - 08/28/2025 10:35 AM EDT Surgery [facility]PERATING RO[facility] [address] [place] [address] Dyllan Paul MD [address] [place] [address] URETEROSCOPY, WITH LASER LITHOTRIPSY [[id number] (CPT )] 10/28/2025 8:00 AM EST Office Visit [place] [facility] [address] [place] [address] Pavan Aldrich MD [address] [place] [address] Scheduled Procedures Name Priority Associated [...] documented as of this encounter Care Teams Knot Picker Cloth Relationship Specialty Start Date End Date Murray Prajapati MD [address] [place] [address] PCP - General 03/06/23 Jaja Camara APRN [address] [facility] [address] [place] [id number] Referring Physician Gastroenterology 03/06/23 Dyllan Paul MD [address] [facility] [address] [place] [address] Surgeon Urology 04/29/25 documented as of this encounter
--- OUTSIDE RECORDS SUMMARY | 2025-08-06 12:28 | XMS_ITS | Encounter Summary ---
Author Organization [facility] Address [address] [place] [address] Care Team Providers Care Agriculture Science Teacher Name Role Phone Murray Prajapati MD Primary Care Provider [phone] Jaja Camara WET COTTON FEEDER Unavailable [phone] Dyllan Paul MD Unavailable [phone] Wendy Card PAINT SPRAYER SANDBLASTER Unavailable Unavaila ble Encounter Details Date Type [...] time in the past 12 m [facility], were you homeless or living in a halfway (including now)? No 06/16/2025 CAGE ASSESSMENT Answer [...] drink first t rafy in the morning (EYE-HOME WORKER) to steady your nerves or to get rid of a hangover? 0 06/28/2025 CAGE Questionnaire Score 0 025 Utilities Answer Date Recorded In the past 12 months has th e [employer], gas, oil, or water company threatened to [...] Nephrology, Bone & Mineral Metabolism [address] [facility], [address] [place] [address] Kathia Watkins MD [address] [facility] [address] [place] [address] 08/28/2025 8:50 AM EDT Hospital Encounter PAV A OPERATING ROOM [address] [place] [address] Dyllan Paul MD [address] [address] 08/28/2025 8:50 AM EDT Anesthesia Event P[facility] A OPERATING ROOM [address] [place] [address] Paige Starkey, WET COTTON FEEDER [address] [place] [address] 08/28/2025 8:50 AM EDT - 08/28/2025 10:35 AM EDT Surgery [facility] A OPERATING ROOM [address] [place] [address] Dyllan Paul MD [address] [place] [address] URETEROSCOPY, WITH LASER LITHOTRIPSY [[id number] (CPT )] 10/28/2025 8:00 AM EST Office Visit [place] [facility] [address] [place] [address] Pavan Aldrich MD [address] [place] [address] Scheduled Procedures Name Priority Associated [...] documented as of this encounter Care Teams Agriculture Science Teacher Relationship Specialty Start Date End Date Murray Prajapati MD [address] [place] [address] PCP - General 03/06/23 Jaja Camara APRN [address] [place] [address] Referring Physician Gastroenterology 03/06/23 Dyllan Paul MD [address] [place] [address] Surgeon Urology 04/29/25 Wendy Card LPN VALUE-BASED TRANSFORMATION PROGRAM TCM Nurse 07/07/25 documented as of this encounter
--- OUTSIDE RECORDS SUMMARY | 2025-08-06 12:28 | XMS_ITS | Clinical Summary ---
Author Organization [facility] Address [address] [place] [address] Care Team Providers Care Rig Welder Name Role Phone Murray Prajapati MD Primary Care Provider [phone] Jaja Camara MIXING MACHINE ATTENDANT Unavailable [phone] Dyllan Paul MD Unavailable [phone] Wendy Card FLIGHT CONTROLS ENGINEER Unavailable Unavaila ble Allergies No known active allergies Medications * This document contains information received from the source organization and may not represent a complete record from that organization. atorvastatin (Lipitor) 10 MG tablet Take 1 tablet by mouth daily. Active multivitamin-iron- minerals-folic acid (Centrum) chewable tablet Chew 1 tablet daily. Active Vitamin E 450 MG (1000 UT) capsule Take 1,000 Units by mouth 1 (one) time each day. Active enoxaparin (Lovenox) 120 MG/0.8ML solution prefilled syringe Inject 0.8 mL under the skin every 12 hours. 180 each 06/25/20 25 025 Active miconazole (Micotin) 2 % powder Apply to affected areas 43 g 1 07/04/20 25 Active naloxone (Narcan) 4 mg/0.1 mL nasal spray 1. Give 1 spray in nostril for no/slow breathing or cannot wake after opioid use 2. Call 911 3. Repeat in other nostril if symptoms continue 1 each 07/04/20 25 Active lactulose (Chronulac) 10 GM/15ML solution Take 15 mL by mouth daily. 473 mL 1 07/22/20 25 Active ferrous gluconate (Fergon) 324 (38 Fe) MG tablet Take 1 tablet by mouth daily. 30 tablet 07/31/20 Active Additional Information Patient not taking.Reported on 08/06/2025 melatonin tablet Take 2 tablets by mouth nightly. 30 tablet 07/31/20 Active Additional Information Patient not taking.Reported on 08/06/2025 midodrine (Proamatine) 10 MG tablet Take 1 tablet by mouth 3 times a day. 90 tablet 5 07/31/20 Active ondansetron ODT (Zofran-ODT) 4 MG disintegrating tablet Dissolve 1 tablet on the tongue every 6 hours as needed for nausea or vomiting. 20 tablet 07/31/20 Active Additional Information Patient not taking.Reported on 08/06/2025 rifAXIMin (Xifaxan) 550 MG tabletIndications: Alcoholic cirrhosis of liver with ascites (CMS/HCC) Take 1 tablet by mouth 2 times a day. 60 tablet 07/31/20 Active furosemide (Lasix) 40 MG tablet Take 1 tablet by mouth daily. Active potassium chloride ER (Micro-K) 10 MEQ ER capsule Take 1 capsule by mouth daily. Do not crush or chew. Active fluticasone (Flonase) 50 MCG/ACT nasal spray Administer 1 spray into each nostril 2 times a day. Shake gently. Before first use, prime pump. After use, clean tip and replace cap. Active traZODone (Desyrel) 50 MG tablet Take 0.5 tablets by mouth nightly. Active carvedilol (Coreg) 3.125 MG tabletIndications: Esophageal varices without bleeding, unspecified esophageal varices type (CMS/HCC) Take 1 tablet by mouth 2 times a day. 60 tablet 2 03/28/20 25 025 Discontinu ed(Stop Taking at Discharge) furosemide (Lasix) 40 MG tablet Take 1 tablet by mouth 2 times a day. 025 Discontinu ed(Stop Taking at Discharge) lactulose (Chronulac) 10 GM/15ML solution Take 15 mL by mouth daily. 473 mL 1 06/26/20 25 025 Discontinu ed(Reorder ) methocarbamol (Robaxin) 750 MG tablet Take 1 tablet by mouth 4 times a day as needed for muscle spasms. 120 tablet 06/25/20 25 025 Discontinu ed(Stop Taking at Discharge) tamsulosin (Flomax) 0.4 MG 24 hr capsule Take 1 capsule by mouth 1 time each day with dinner. 30 capsule 06/25/20 25 025 Discontinu ed(Stop Taking at Discharge) acetaminophen (Tylenol) 500 MG tablet Take 1 tablet by mouth every 8 hours as needed for pain. 60 tablet 07/04/20 25 025 fluconazole (Diflucan) 200 MG tabletIndications: Right ureteral stone,Cirrhosis of liver with ascites, unspecified hepatic cirrhosis type (CMS/HCC) Take 1 tablet by mouth daily for 9 doses. 9 tablet 07/05/20 25 025 levoFLOXacin (Levaquin) 750 MG tabletIndications: Right ureteral stone,Cirrhosis of liver with ascites, unspecified hepatic cirrhosis type (CMS/HCC) Take 1 tablet by mouth daily for 4 doses. 4 tablet 07/04/20 25 025 metroNIDAZOLE (Flagyl) 500 MG tabletIndications: Right ureteral stone,Cirrhosis of liver with ascites, unspecified hepatic cirrhosis type (CMS/HCC) Take 1 tablet by mouth every 8 hours for 14 doses. 14 tablet 07/04/20 25 025 oxyCODONE (Roxicodone) 5 MG immediate release tablet Take 1 tablet by mouth every 6 hours as needed for moderate pain for up to 3 days. 12 tablet 07/04/20 25 025 Active Problems Problem Noted Date Diagnosed [...] pressure -Norepi for MAP>65 -Transfuse as needed. Anemia 06/12/2025 Overview (06/18/2025): Lab Results Component [...] Problem Noted Date Diagnosed Date Resolved Date LALITA (acute kidney injury) 07/26/2025 Metabolic encephalopathy 06/17/2025 Assessment & Plan (06/17/2025 [...] -Monitor daily labs, -ICU electrolyte replacement protocol Prostate CA 06/12/2025 07/31/2025 Assessment & Plan (06/18/2025 9:56 AM EDT): [...] vein, 1.3L blood loss Management per primary On mechanically assisted ventilation 06/12/2025 06/18/2025 Assessment [...] PRN CXR, blood gasses and nebs Encounters * This document contains information received from the source organization and may not represent a complete record from that organization. Date Type Department Care Team Description 08/06/2025 9:30 AM EDT Pre-Admission Testing [facility] [address] [place] [address] 08/06/2025 Travel 08/04/2025 Telephone [facility] [address] [place] [address] Lanre Franklin MD 08/04/2025 Patient Outreach POPULATION [address], [address] [place] [address] Wendy Card LPN [facility] 08/04/2025 Patient Outreach [address], [address] [place] [address] Wendy Card LPN [facility] 08/01/2025 Telephone [facility] [address] [address] Dyllan Paul MD 08/01/2025 Telephone [facility] [address], [address] [place] [phone] Lata Leonardo 07/27/2025 Travel 07/26/2025 Travel 07/25/2025 Orders Only External Location [address] [place] [address] Provider, External 07/25/2025 Orders Only External Location [address] [place] [address] Provider, External 07/22/2025 8:45 AM EDT Office Visit [facility] [address] [address] Dyllan Paul MD Ureteral stone (Primary Dx) 07/22/2025 6:57 AM EDT - 07/22/2025 11:59 PM EDT Hospital Encounter [facility] [address] [place] [address] Renal calculi Discharge Disposition: Home or Self Care 07/22/2025 Travel 07/18/2025 Telephone [facility] [address] [place] [address] Dyllan Paul MD [facility] Clinical Concern/Question 07/15/2025 Telephone [facility] [address], 2[address] [place] [address] Dyllan Paul MD HCN Clinical Concern/Question 07/09/2025 Telephone [facility] Multid[facility] Oncology [facility] [address] [place] [phone] Dyllan Paul MD 07/07/2025 Patient Outreach POPULATION [address], [address] [place] [address] Wendy Card LPN [facility] 07/03/2025 5:25 PM EDT Anesthesia Event [facility] [address] [place] [address] Anand Pedraza MD Carney Tinsley, Amanda S, MIXING MACHINE ATTENDANT, DNP 07/03/2025 4:23 PM EDT - 07/03/2025 5:08 PM EDT Surgery [facility] [address] [place] [address] Dyllan Paul MD CYSTOSCOPY, WITH URETERAL STENT INSERTION [83588 (CPT )] 07/03/2025 Travel 06/30/2025 Patient Outreach [address], [facility] [address] [place] [address] Marlin Martinez, RN Link 06/29/2025 Travel 06/28/2025 9:28 PM EDT - 07/04/2025 2:50 PM EDT Hospital Encounter [facility] Inpatient [address] [place] [address] Rg Coleman MD Cruz, Angelo A, MD Aziz, MD Kalyan Reyes Muhammad Fahad, MD Sweigart, Joseph R, MD Andika, Reynold, MD Febrile illness (Primary Dx); Hypotension, unspecified hypotension type; Right ureteral stone; Cirrhosis of liver with ascites, unspecified hepatic cirrhosis type (CMS/HCC) Discharge Disposition: Home or Self Care 06/28/2025 Travel 06/28/2025 Telephone [facility] [address], [address] [place] [address] Eugene Ruggiero MD 06/27/2025 Telephone [facility] [address] [place] [phone] Dyllan Paul MD [facility] Care 06/24/2025 Travel 06/22/2025 Travel 06/20/2025 Travel 06/18/2025 Refill [facility] [address] [place] [address] Virginia Campa MD Esophageal varices without bleeding, unspecified esophageal varices type (CMS/HCC) 06/17/2025 Travel 06/16/2025 Travel 06/15/2025 Travel 06/14/2025 Travel 06/12/2025 2:42 PM EDT Anesthesia Event [facility] [address] [place] [phone] Afshin Reece MD Zimmerman, Bayli N, 06/12/2025 12:35 PM EDT - 06/12/2025 5:30 PM EDT Surgery [facility] [address] [place] [phone] Dyllan Paul MD PROSTATECTOMY, RADICAL, ROBOT-ASSISTED [[id number] (CPT )] 06/12/2025 10:20 AM EDT - 06/25/2025 7:12 PM EDT Hospital Encounter [facility] [address] [place] [phone] Dyllan Paul MD Prostate CA (CMS/HCC) (Primary [...] Travel 06/06/2025 9:30 AM EDT Pre-Admission Testing [facility] [address], [address] [place] [address] 06/06/2025 Travel 06/05/2025 Travel 06/03/2025 Telephone [facility] [address], [address] [place] [address] Lanre Franklin MD 05/20/2025 Telephone [facility] [address], [address] [place] [address] Dyllan Paul MD HCN Clinical Concern/Question from Last 3 Months Family History Medical [...] any time in the past [address] [facility], were you homeless or living in a prison (including now)? No 07/28/2025 [facility] Utilities Answer Date Recorded In the past 12 months has [email or web address], gas, oil, or water [employer] threatened to shut off services in your [...] drink first t rafy in the morning (EYE-FEE CLERK) to steady your nerves or to get [...] Sign Reading Time Taken Comments Blood Pressure 103/69 07/31/2025 10:57 AM EDT Pulse 90 07/31/2025 10:57 AM EDT Temperature 36.3 C (97.4 F) 07/31/2025 10:57 AM EDT Respiratory Rate 18 07/31/2025 4:29 AM EDT Oxygen Saturation 95% 07/31/2025 10:57 AM EDT Inhaled Oxygen Concentration - - Weight 97.1 kg (214 lb 1.1 oz) 07/31/2025 9:00 A M EDT Height 175.3 cm (5' 9.02 ) 07/31/2025 9:00 AM ED T Body Mass Index 31.6 07/31/2025 9:00 AM EDT Plan of Treatment Upcoming Encounters Date Type Department Care Team (Latest Contact Info) Description 08/22/2025 9:00 AM EDT Office Visit [facility] [place] Nephrology, Bone & Mineral Metabolism [address] [facility], [address] [place] [address] Kathia Watkins MD [address] [facility] [address] [place] [address] 08/28/2025 8:50 AM EDT Hospital Encounter [facility] [address] [place] [address] Dyllan Paul MD [address] [place] [address] 08/28/2025 8:50 AM EDT Anesthesia Event [facility] [address] [place] [address] Paige Starkey, MIXING MACHINE ATTENDANT [address] [place] [address] 08/28/2025 8:50 AM EDT - 08/28/2025 10:35 AM EDT Surgery [facility] [address] [place] [address] Dyllan Paul MD [address] [place] [address] URETEROSCOPY, WITH LASER LITHOTRIPSY [[id number] (CPT )] 10/28/2025 8:00 AM EST Office Visit [facility] [address], [address]nd [place] [address] Pavan Aldirch MD [address] [place] [address] Scheduled Procedures Name Priority Associated Diagnoses Date/Ti me URETEROSCOPY, WITH LASER LITHOTRIPSY Ureteral stone 08/28/2025 8:50 AM EDT Health Maintenance Due Date Last Done [...] [facility]-Zoster Vaccines (1 of 2) 12/24/2016 10/29/2016 [id number] Vaccine ( - 2024- season) 2025 09/15/2021, 02/17/2021, 01/20/2021 [facility]-Influenza Vaccine (#1) 2025 08/13/2020 [facility]- SDOH Screenings 01/25/2026 [facility]-Adult SDOH Screenings 01/25/2026 07/28/2025 [facility]-Depression Screening 07/22/2026 07/22/2025, 04/20 [facility]-Hepatitis C Screening Completed 03/28/2025, [facility]-Obesity Intervention Completed 025, 07/22/2025, 06/28/2025, Additional history exists HPV Vaccines Aged Out [...] [employer] Implanted Type Area Diamond Expert Device Identifier Shelf Expiration Date Model / Serial / Lot Stent Ureteral Double Pigtail Pos 6fr 24cm - [id number] - [id number] Implanted:Qty: 1 on 07/03/2025 by Dyllan Paul MD at [facility] Stent Right: U[employer]ter [id number] 02/12/2027 [id number] / [id number] / Procedures Procedure Name Priority Date/Time Associated Diagnosis Comments POCT GLUCOSE METER UNSOLICITED RESULTS Routine 07/31/2025 10:12 AM EDT POCT GLUCOSE METER UNSOLICITED RESULTS Routine 07/31/2025 8:11 AM EDT PROTHROMBIN TIME(PT) / INR Routine 07/31/2025 4:37 AM EDT MAGNESIUM, PLASMA Routine 07/31/2025 4:37 AM EDT COMPREHENSIVE METABOLIC PANEL, PLASMA Routine 07/31/2025 4:37 AM EDT CBC WITH AUTO DIFFERENTIAL Routine 07/31/2025 4:37 AM EDT POCT GLUCOSE METER UNSOLICITED RESULTS Routine 07/30/2025 8:07 PM EDT POCT GLUCOSE METER UNSOLICITED RESULTS Routine 07/30/2025 5:28 PM EDT POCT GLUCOSE METER UNSOLICITED RESULTS Routine 07/30/2025 12:23 PM EDT POCT GLUCOSE METER UNSOLICITED RESULTS Routine 07/30/2025 9:29 AM EDT HEMOGLOBIN AND HEMATOCRIT, BLOOD Timed 07/30/2025 9:08 AM EDT POCT GLUCOSE METER UNSOLICITED RESULTS Routine 07/30/2025 8:00 AM EDT PROTHROMBIN TIME(PT) / INR Routine 07/30/2025 12:32 AM EDT MAGNESIUM, PLASMA Routine 07/30/2025 12:32 AM EDT CBC WITH AUTO DIFFERENTIAL Timed 07/30/2025 12:32 AM EDT COMPREHENSIVE METABOLIC PANEL, PLASMA Routine 07/30/2025 12:32 AM EDT POCT GLUCOSE METER UNSOLICITED RESULTS Routine 07/29/2025 8:00 PM EDT HEMOGLOBIN AND HEMATOCRIT, BLOOD Timed 07/29/2025 7:54 PM EDT POCT GLUCOSE METER UNSOLICITED RESULTS Routine 07/29/2025 5:13 PM EDT POCT GLUCOSE METER UNSOLICITED RESULTS Routine 07/29/2025 12:06 PM EDT POCT GLUCOSE METER UNSOLICITED RESULTS Routine 07/29/2025 8:02 AM EDT PROTHROMBIN TIME(PT) / INR Routine 07/29/2025 4:15 AM EDT MAGNESIUM, PLASMA Routine 07/29/2025 4:15 AM EDT CBC WITH AUTO DIFFERENTIAL Routine 07/29/2025 4:15 AM EDT COMPREHENSIVE METABOLIC PANEL, PLASMA Routine 07/29/2025 4:15 AM EDT POCT GLUCOSE METER UNSOLICITED RESULTS Routine 07/28/2025 5:45 PM EDT POCT GLUCOSE METER UNSOLICITED RESULTS Routine 07/28/2025 11:51 AM EDT PROTHROMBIN TIME(PT) / INR Routine 07/28/2025 11:42 AM EDT MAGNESIUM, PLASMA Routine 07/28/2025 11:42 AM EDT CBC WITH AUTO DIFFERENTIAL Routine 07/28/2025 11:42 AM EDT COMPREHENSIVE METABOLIC PANEL, PLASMA Routine 07/28/2025 11:42 AM EDT POCT GLUCOSE METER UNSOLICITED RESULTS Routine 07/28/2025 6:11 AM EDT HEPATITIS B CORE TOTAL AB (IGG AND IGM) Routine 07/28/2025 3:22 AM EDT HEPATITIS B SURFACE ANTIBODY, QUANTITATIVE Routine 07/28/2025 3:22 AM EDT HEPATITIS A ANTIBODY IGG Routine 3:22 AM EDT POCT GLUCOSE METER UNSOLICITED RESULTS Routine 07/27/2025 11:45 PM EDT ECG ADULT Routine 07/27/2025 11:22 PM EDT POCT GLUCOSE METER UNSOLICITED RESULTS Routine 07/27/2025 6:04 PM EDT TYPE AND SCREEN Routine 07/27/2025 6:02 PM EDT HEMOGLOBIN STAT 07/27/2025 6:02 PM EDT POCT GLUCOSE METER UNSOLICITED RESULTS Routine 07/27/2025 12:16 PM EDT US ABDOMEN DOPPLER LIMITED Routine 07/27/2025 10:31 AM EDT POCT GLUCOSE METER UNSOLICITED RESULTS Routine 07/27/2025 6:16 AM EDT POCT GLUCOSE METER UNSOLICITED RESULTS Routine 07/27/2025 1:13 AM EDT PHOSPHATIDYLETHANOL (PETH), WHOLE BLOOD, QUANTITATIVE (SO) Routine 07/27/2025 12:25 AM EDT PHOSPHORUS, PLASMA Routine 07/27/2025 12:25 AM EDT MAGNESIUM, PLASMA Routine 07/27/2025 12:25 AM EDT COMPREHENSIVE METABOLIC PANEL, PLASMA Routine 07/27/2025 12:25 AM EDT CBC WITH AUTO DIFFERENTIAL Routine 07/27/2025 12:25 AM EDT POCT GLUCOSE METER UNSOLICITED RESULTS Routine 07/26/2025 8:24 PM EDT POTASSIUM, URINE, RANDOM Add-On 025 6:45 PM EDT SODIUM, URINE, RANDOM Add-On 07/26/2025 6:45 PM EDT URINALYSIS MICROSCOPIC FOR UA REFLEX Routine 07/26/2025 6:45 PM EDT URINE SALCEDO PANEL Routine 07/26/2025 6:45 PM EDT URINALYSIS WITH REFLEX MICROSCOPIC Routine 07/26/2025 6:45 PM EDT OSMOLALITY, URINE Routine 07/26/2025 6:45 PM EDT UREA NITROGEN, RANDOM URINE Routine 07/26/2025 6:45 PM EDT CREATININE, RANDOM URINE Routine 025 6:45 PM EDT CHLORIDE, RANDOM URINE Routine 6:45 PM EDT POTASSIUM, URINE, RANDOM Routine 025 6:45 PM EDT SODIUM, URINE, RANDOM Routine 07/26/2025 6:45 PM EDT URINALYSIS WITH REFLEX MICROSCOPIC AND CULTURE Routine 07/26/2025 6:45 PM EDT MULTI DRUG RESISTANCE TEST Routine 07/26/2025 6:45 PM EDT POCT GLUCOSE METER UNSOLICITED RESULTS Routine 07/26/2025 6:18 PM EDT US RENAL COMPLETE STAT 07/26/2025 4:49 PM EDT WOUND OSTOMY EVAL AND TREAT Routine 07/26/2025 12:58 PM EDT OSMOLALITY, SERUM Add-On 07/26/2025 11:08 AM EDT BASIC METABOLIC PANEL, PLASMA Routine 07/26/2025 11:08 AM EDT VITAMIN B1 (THIAMINE), WHOLE BLOOD (SO) Routine 07/26/2025 11:08 AM EDT FREE T4, PLASMA Routine 07/26/2025 5:33 AM EDT PHOSPHATIDYLETHANOL (PETH), WHOLE BLOOD, QUANTITATIVE (SO) STAT 07/26/2025 5:33 AM EDT CORTISOL STAT 07/26/2025 5:33 AM EDT TSH REFLEX FT4 Routine 07/26/2025 5:33 AM EDT FOLATE, SERUM Routine 07/26/2025 5:33 AM EDT VITAMIN B12, SERUM Routine 07/26/2025 5:33 AM EDT FERRITIN, SERUM Routine 07/26/2025 5:33 AM EDT IRON & TOTAL IRON BINDING CAPACITY, PLASMA (INCLUDES TRANSFERRIN) Routine 07/26/2025 5:33 AM EDT PROCALCITONIN, PLASMA STAT 07/26/2025 5:33 AM EDT SEDIMENTATION RATE, AUTOMATED Add-On 07/26/2025 3:25 AM EDT C-REACTIVE PROTEIN, PLASMA Add-On 07/26/2025 3:25 AM EDT OSMOLALITY, SERUM Add-On 07/26/2025 3:25 AM EDT PHOSPHORUS, PLASMA Add-On 07/26/2025 3:25 AM EDT N-TERMINAL PROBNP, PLASMA STAT 2024 3:25 AM EDT PROTHROMBIN TIME(PT) / INR STAT 07/26/2025 3:25 AM EDT MAGNESIUM, PLASMA STAT 07/26/2025 3:25 AM EDT PROCALCITONIN, PLASMA STAT 07/26/2025 3:25 AM EDT BLOOD GAS PANEL, VENOUS STAT 07/26/20 3:25 AM EDT COMPREHENSIVE METABOLIC PANEL, PLASMA STAT 07/26/2025 3:25 AM EDT CBC WITH AUTO DIFFERENTIAL STAT 07/26/2025 3:[address] OUTSIDE IMAGES 07/25/2025 6:09 PM EDT XR OUTSIDE IMAGES 07/25/2025 4:55 PM EDT URINE CULTURE Routine 07/22/2025 10:26 AM EDT [...] ANESTHESIA PLACEHOLDER Routine 2024 5:[address] AN ELECTIVE ENDOTRACHEAL AIRWAY Routine 07/03/2025 5:[address] OPEN BLADDER,REMV CALCULUS 07/03/2025 5:10 PM EDT Right ureteral stone Special Needs Cmax CT CYSTOSCOPY,INSERT URETERAL STENT 07/03/2025 5:10 PM EDT [...] PANEL, ARTERIAL Timed 2024 8:[address] CRITICAL CARE, E/M 30-74 MINUTES Routine 06/17/2025 8:36 AM EDT Prostate CA (CMS/HCC) Alcohol use disorder On mechanically assisted ventilation (CMS/[facility]) Leukocytosis, unspecified type Hyperbilirubinemi a Electrolyte abnormality [...] Routine 06/16/2025 10:30 AM EDT Prostate CA ([facility]) Alcohol use disorder On mechanically assisted ventilation ([facility]) Leukocytosis, unspecified type Hypocalcemia Electrolyte abnormality Severe obesity (BMI 35.0-39.9) with comorbidity ([facility]) SCC (squamous cell carcinoma), leg, left Renal calculi Other secondary hypertension ECHO, ADULT TRANSTHORACIC COMPLETE Routine 06/16/2025 8:10 AM EDT POCT GLUCOSE METER UNSOLICITED RESULTS Routine 06/16/2025 8:09 AM EDT VENTILATOR - ADULT Routine 06/16/2025 8:00 AM EDT END TIDAL CO2 MONITORING Routine 025 8:00 AM EDT HEMOGLOBIN A1C Add-On 06/16/2025 [...] 06/15/2025 9:09 AM EDT Prostate CA (CMS/HCC) VENTILATOR - ADULT Routine 06/15/2025 8:00 AM [...] ANESTHESIA PLACEHOLDER Routine 2024 2:[address] AN ELECTIVE ENDOTRACHEAL AIRWAY Routine 06/12/2025 2:[address] LAP,PROSTATECTOMY,RADICAL ,W/NERVE SPARE,INCL ROBOTIC 06/12/2025 2:26 [...] Recently Relevant to Health Maintenance Results * (ABNORMAL) POCT glucose meter (07/31/2025 10:12 AM EDT) Only the most recent of39 resultswithin the time period is included. POCT Glucose 158(H) 74 - 99 mg/dL 07/31/2025 10:15 AM EDT [facility] Comment:Accuracy of a glucos e result obtained from a capillary whole blood specimen relies upon adequate, non-compromised capillary blood flow. If the capillary glucose result is not consistent with the patient's clinical signs and symptoms, glucose testing should be repeated with either an arterial or venous sample on the glucometer or sent to the main labortory for testing. Comment 07/31/2025 10:15 AM EDT [facility] Aviation Safety Equipment Technician ID Ninfa Duran 07/31/2025 10:15 AM EDT [facility] Device ID [id number] 07/31/2025 10:15 AM EDT [facility] Specimen Type POC Capillary 07/31/2025 10:15 AM EDT [facility] Blood Capillary blood specimen / Unknown 07/31/2025 10:12 AM EDT 07/31/2025 10:15 AM EDT Pro Estrada MD LAB POINT OF CARE TE ST DOCKED DEVICE UNSOLICITED RESULTS Final Result Performing Organization Address City/[facility]/ZIP Co de Phone Number [facility] [address] [place] [address] * (ABNORMAL) Prothrombin Time/INR (07/31/2025 4:37 AM EDT) Only the most recent of12 resultswithin the time period is included. Prothrombin Time 22.3(H) 12.0 - 14.3 sec 07/31/2025 4:59 AM EDT HEALTHCARE LAB INR 1.9(H) 0.9 - 1.1 07/31/2025 4:59 AM EDT [facility] Blood Venous blood specimen / Unknown Venipuncture / Unknown 07/31/2025 4:37 AM EDT 07/31/2025 4:42 AM EDT Narrative HEALTHCARE LAB - 07/31/2025 4:59 AM EDT OPTIMAL INR RANGES FOR PATIENT ON ORAL ANTICOAGULANT THERAPY Prevention of venous thromboembolism INR 2.0 to 3.0 In patients with heart disease: Atrial fibrillation INR 2.0 to 3.0 Valvular heart disease INR 2.0 to 3.0 Tissue heart valves INR 2.0 to 3.0 Mechanical prosthetic valves INR 2.5 to 3.5 Prevention of recurrent OH INR 2.5 to 3.5 us Pro Estrada MD LAB BLOOD ORDERABLES Final Resul t Performing Organization Address City/[facility]/ZIP Co de Phone Number [facility] [address] [place] [phone] * (ABNORMAL) CBC and differential (07/31/2025 4:37 AM EDT) Only the most recent of10 resultswithin the time period is included. WBC Count 7.07 3.70 - 10.30 10*3/uL LAB HEMATOLOGY METHOD 07/31/2025 4:48 AM EDT [facility] RBC Count 3.14(L) 4.60 - 6.10 10*6/uL LAB HEMATOLOGY METHOD 07/31/2025 4:48 AM EDT [facility] HGB 9.9(L) 13.7 - 17.5 g/dL LAB HEMATOLOGY METHOD 07/31/2025 4:48 AM EDT [facility] HCT 28.9(L) 40.0 - 51.0 % LAB HEMATOLOGY METHOD 07/31/2025 4:48 AM EDT [facility] Platelet Count 84(L) 155 - 369 10*3/uL LAB HEMATOLOGY METHOD 07/31/2025 4:48 AM EDT [facility] MCV 92 79 - 98 fL LAB HEMATOLOGY METHOD 07/31/2025 4:48 AM EDT [facility] MCH 31.5 26.0 - 32.0 pg LAB HEMATOLOGY METHOD 07/31/2025 4:48 AM EDT [facility] MCHC 34.3 30.7 - 35.5 g/dL LAB HEMATOLOGY METHOD 07/31/2025 4:48 AM EDT [facility] RDW 15.3(H) 11.5 - 14.5 % LAB HEMATOLOGY METHOD 07/31/2025 4:48 AM EDT [facility] MPV 11.5 8.8 - 12.5 fL LAB HEMATOLOGY METHOD 07/31/2025 4:48 AM EDT [facility] nRBC 0.0 <=0.0 per 100 WBCs LAB HEMATOLOGY METHOD 07/31/2025 4:48 AM EDT [facility] Differential Type Automated LAB HEMATOLOGY METHOD 07/31/2025 4:48 AM EDT [facility] Neutrophils % 48 % LAB HEMATOLOGY METHOD 07/31/2025 4:48 AM [facility]T [facility] Lymphocytes % 36 % LAB HEMATOLOGY METHOD 07/31/2025 4:48 AM EDT [facility] Monocytes % 11 % LAB HEMATOLOGY METHOD 07/31/2025 4:48 AM EDT [facility] Eosinophils % 4 % LAB HEMATOLOGY METHOD 07/31/2025 4:48 AM EDT [facility] Basophils % 1 % LAB HEMATOLOGY METHOD 07/31/2025 4:48 AM EDT [facility] Immature Granulocytes % 0 % LAB HEMATOLOGY METHOD 07/31/2025 4:48 AM EDT [facility] Neutrophils Absolute 3.45 1.60 - 6.10 10*3/uL LAB HEMATOLOGY METHOD 07/31/2025 4:48 AM EDT [facility] Lymphocytes Absolute 2.53 1.20 - 3.90 10*3/uL LAB HEMATOLOGY METHOD 07/31/2025 4:48 AM EDT [facility] Monocytes Absolute 0.74 0.30 - 0.90 10*3/uL LAB HEMATOLOGY METHOD 07/31/2025 4:48 AM EDT [facility] Eosinophils Absolute 0.27 0.00 - 0.50 10*3/uL LAB HEMATOLOGY METHOD 07/31/2025 4:48 AM EDT [facility] Basophils Absolute 0.05 0.00 - 0.10 10*3/uL LAB HEMATOLOGY METHOD 07/31/2025 4:48 AM EDT [facility] Immature Granulocytes Absolute 0.03 0.00 - 0.06 10*3/uL LAB HEMATOLOGY METHOD 07/31/2025 4:48 AM EDT [facility] Blood Venous blood specimen / Unknown Venipuncture / Unknown 07/31/2025 4:37 AM EDT 07/31/2025 4:42 AM EDT Narrative [facility] - 07/31/2025 4:48 AM EDT Therapeutic decision making should be based on absolute values, rather than percentages. us Pro Estrada MD LAB BLOOD ORDERABLES Final Resul t Performing Organization Address City/[facility]/ZIP Co de Phone Number [facility] [address] [place] [address] * (ABNORMAL) Magnesium (07/31/2025 4:37 AM EDT) Only the most recent of22 resultswithin the time period is included. Magnesium, Plasma 1.7(L) 1.9 - 2.4 mg/dL 07/31/2025 5:07 AM EDT [facility] Blood Venous blood specimen / Unknown Venipuncture / Unknown 07/31/2025 4:37 AM EDT 07/31/2025 4:42 AM EDT us Pro Estrada MD LAB BLOOD ORDERABLES Final Resul t Performing Organization Address City/[facility]/ZIP Co de Phone Number [facility] [address] [place] [address] * (ABNORMAL) Comprehensive metabolic panel (07/31/2025 4:37 AM EDT) Only the most recent of19 resultswithin the time period is included. Glucose, Plasma 91 74 - 99 mg/dL 07/31/2025 5:07 AM EDT [facility] BUN, Plasma 24(H) 8 - 23 mg/dL 07/31/2025 5:07 AM EDT [facility] Creatinine, Plasma 1.37(H) 0.70 - 1.20 mg/dL 07/31/2025 5:07 AM EDT [facility] BUN/Creatinine Ratio 18 07/31/2025 5:07 AM EDT [facility] Sodium, Plasma 139 136 - 145 mmol/L 07/31/2025 5:07 AM EDT [facility] Potassium, Plasma 3.4(L) 3.6 - 4.9 mmol/L 07/31/2025 5:07 AM EDT [facility] Chloride, Plasma 112(H) 97 - 107 mmol/L 07/31/2025 5:07 AM EDT [facility] CO2, Plasma 18(L) 22 - 29 mmol/L 07/31/2025 5:07 AM EDT [facility] Anion Gap 9 6 - 16 mmol/L 07/31/2025 5:07 AM EDT [facility] Total Calcium, Plasma 8.6(L) 8.9 - 10.2 mg/dL 07/31/2025 5:07 AM EDT [facility] Total Protein 4.6(L) 6.3 - 7.9 g/dL 07/31/2025 5:07 AM EDT [facility] Albumin, Plasma 2.9(L) 3.5 - 5.2 g/dL 07/31/2025 5:07 AM EDT [facility] AST, Plasma 49 10 - 50 U/L 07/31/2025 5:07 AM EDT [facility] ALT, Plasma 19 10 - 50 U/L 07/31/2025 5:07 AM EDT [facility] Alkaline Phosphatase, Plasma 97 40 - 115 U/L 07/31/2025 5:07 AM EDT [facility] Total Bilirubin, Plasma 1.3(H) 0.2 - 1.1 mg/dL 07/31/2025 5:07 AM EDT [facility] eGFRcr 55.5 mL/min/1.7 3m*2 07/31/2025 5:07 AM EDT [facility] Comment:Reported eGFRcr in m L/min/1.73m2 is based the CKD-EPI 2020 equation that does not use a race coefficient. Blood Venous blood specimen / Unknown Venipuncture / Unknown 07/31/2025 4:37 AM EDT 07/31/2025 4:42 AM EDT Pro Estrada MD LAB BLOOD ORDERABLES Final Resul t Performing Organization Address [facility] de Phone Number [facility] [address] [place] [address] * (ABNORMAL) Hemoglobin and Hematocrit, Blood (07/30/2025 9:08 AM EDT) Only the most recent of3 resultswithin the time period is included. HGB 10.2(L) 13.7 - 17.5 g/dL LAB HEMATOLOGY METHOD 07/30/2025 9:46 AM EDT [facility] HCT 30.0(L) 40.0 - 51.0 % LAB HEMATOLOGY METHOD 07/30/2025 9:46 AM EDT [facility] Blood Venous blood specimen / Unknown Venipuncture / Unknown 07/30/2025 9:08 AM EDT 07/30/2025 9:42 AM EDT us Pro Estrada MD LAB BLOOD ORDERABLES Final Resul t Performing Organization Address City/[facility] de Phone Number [facility] [address] [place] [address] * Hepatitis B Surface Antibody, Quantitative (07/28/2025 3:22 AM EDT) Hepatitis B Surface Antibody, Quantitative <8.00 NonReactiv e: <8, Grayzone: 8 - <12, Reactive: >= 12 mIU/mL 07/28/2025 9:33 AM EDT [facility] Comment: Nonreactive. Individual is considered not immune to HBV infection. Blood Venous blood specimen / Unknown Venipuncture / Unknown 07/28/2025 3:22 AM EDT 07/28/2025 4:31 AM EDT Estiven Martinez MD LAB BLOOD ORDERABLES Final Re sult Performing Organization Address [facility] Co de Phone Number [facility] [address] [place] [address] * Hepatitis A Antibody IgG (07/28/2025 3:22 AM EDT) Hepatitis A Antibody IgG Negative Negative 07/28/2025 9:33 AM EDT [facility] Blood Venous blood specimen / Unknown Venipuncture / Unknown 07/28/2025 3:22 AM EDT 07/28/2025 4:31 AM EDT Estiven Martinez MD LAB BLOOD ORDERABLES Final Re sult Performing Organization Address [facility] de Phone Number [facility] [address] [place] [address] * Hepatitis B Core Total Antibody IgG,IgM (07/28/2025 3:22 AM EDT) Pathologist [facility] Hepatitis B Core Total Antibody IgG,IgM Negative Negative 07/28/2025 9:33 AM EDT [facility] Blood Venous blood specimen / Unknown Venipuncture / Unknown 07/28/2025 3:22 AM EDT 07/28/2025 4:31 AM EDT Result [facility] Estiven Martinez MD LAB BLOOD ORDERABLES Final Re sult Performing Organization Address [facility] Co de Phone Number [facility] [address] [place] [address] * ECG Adult (07/27/2025 11:22 PM EDT) Only the most recent of2 resultswithin the time period is included. EKG DIAGNOSIS CLASS Normal MUSE ECG Ventricular Rate 62 BPM MUSE ECG Atrial Rate [address] Interval 196 ms MUSE ECG QRSD Interval 92 ms MUSE ECG QT Interval 442 ms MUSE ECG QTC Interval 448 ms MUSE ECG P [place] 46 degrees MUSE ECG R [place] 46 degrees MUSE ECG T Wave [place] 63 degrees MUSE ECG Diagnosis Poor data quality, interpretation may be adversely affected MUSE ECG Diagnosis Normal sinus rhythm MUSE ECG Diagnosis Possible Normal ECG MUSE ECG Diagnosis Recommend repeat ECG MUSE ECG Diagnosis Confirmed by You Rodriuges ([id number]) on 07/28/2025 7:31:55 AM MUSE ECG 07/27/2025 11:2 2 PM EDT 07/28/2025 7:31 AM EDT Lizzie Cadena MD ECG ORDERABLES Final Resul t MUSE ECG * (ABNORMAL) Hemoglobin, Blood (07/27/2025 6:02 PM EDT) Pathologist [facility] HGB 9.5(L) 13.7 - 17.5 g/dL LAB HEMATOLOGY METHOD 07/27/2025 6:18 PM EDT [facility] Blood Venous blood specimen / Unknown Venipuncture / Unknown 07/27/2025 6:02 PM EDT 07/27/2025 6:16 PM EDT Result [facility] Estiven Martinez MD LAB BLOOD ORDERABLES Final Re sult Performing Organization Address [facility] Co de Phone Number [facility] [address] [place] [address] * Type and Screen (07/27/2025 6:02 PM EDT) Only the most recent of3 resultswithin the time period is included. Pathologist [facility] ABO/Rh O Positive 07/27/2025 4:13 PM EDT BLOOD BANK Antibody Screen Negative 07/27/2025 4:13 PM EDT BLOOD [facility]ANK Specimen Expiration 07/30/2025 23:59 07/27/2025 4:13 PM EDT [facility] Blood Venous blood specimen / Unknown Venipuncture / Unknown 07/27/2025 6:02 PM EDT 07/27/2025 6:14 PM EDT Estiven Martinez MD LAB BLOOD BANK TEST ORDERABLE S Final Result BLOOD BANK [address] [place] [address], [place] * US Abdomen Doppler Limited (07/27/2025 10:31 AM EDT) Anatomical Region Laterality Modality Abdomen Ultrasound Impressions 07/27/2025 12:25 PM EDT 1. Patent portal vasculature with appropriate flow directionality. CRITICAL RESULT: No. COMMUNICATION: Per this written report. Drafted by Christi Palacios MD on 07/27/2025 12:19 PM Final report signed by Christi Palacios MD on 07/27/2025 12:25 PM Narrative 07/27/2025 12:25 PM EDT CLINICAL INDICATION: Assess portal vasculature TECHNIQUE: Limited multiplanar salcedo scale ultrasound images of the right upper quadrant were obtained, accompanied by formal color Doppler and spectral waveform images of the portal vasculature. COMPARISON: None. FINDINGS: Grayscale: Findings consistent with liver parenchymal disease. No focal abnormalities seen in the visualized liver. Duplex: Portal vein: There is antegrade flow within the main portal vein with a velocity of 19.2 cm/sec. Patent right posterior portal vein, right anterior portal vein and left portal vein branches with appropriate flow direction. A patent recanalized paraumbilical vein is seen superficially. Procedure Note Christi Palacios MD - 07/27/2025 CLINICAL INDICATION: Assess portal vasculature TECHNIQUE: Limited multiplanar salcedo scale ultrasound images of the right upperquadrant were obtained, accompanied by formal color Doppler and spectralwaveform images of the portal vasculature. COMPARISON: None. FINDINGS: Grayscale: Findings consistent with liver parenchymal disease. No focalabnormalities seen in the visualized liver. Duplex: Portal vein: There is antegrade flow within the main portal vein with avelocity of 19.2 cm/sec. Patent right posterior portal vein, rightanterior portal vein and left portal vein branches with appropriate flowdirection. A patent recanalized paraumbilical vein is seensuperficially. IMPRESSION: 1. Patent portal vasculature with appropriate flow directionality. CRITICAL RESULT: No. COMMUNICATION: Per this written report. Drafted by Christi Palacios MD on 07/27/2025 12:19 PM Final report signed by Christi Palacios MD on 07/27/2025 12:25 PM us Estiven Martinez MD IM US PROCEDURES Final Resul t * Phosphatidylethanol (PEth), Whole Blood, Quantitative (07/27/2025 12:25 AM EDT) Only the most recent of3 resultswithin the time period is included. PEth 16:0/18:2 (PLPEth) <10 ng/mL 07/30/2025 10:48 AM EDT [facility] PEth 16:0/18:1 (POPEth) <10 ng/mL 07/30/2025 10:48 AM EDT [facility] EER Peth See Note 07/30/2025 10:48 AM EDT [facility] PEth Interpretation See Comment 07/30/2025 10:48 AM EDT [facility] Blood Venous blood specimen / Unknown Venipuncture / Unknown 07/27/2025 12:25 AM EDT 07/27/2025 12:44 AM EDT Narrative [facility]) - 07/30/2025 10:48 AM EDT PEth 16:0/18:1 (POPEth) Less than 10 ng/mL............Not detected Less than 20 ng/mL............Abstinence or light alcohol consumption 20 - 200 ng/mL................Moderate alcohol consumption Greater than 200 ng/mL........Heavy alcohol consumption or chronic alcohol use (Reference: Nichole Means and Mike Lowe 2018 J. Forensic Sci) Reference ranges are not well established. Authorized individuals can access the [facility] Enhanced Report with an [employer] Connect account using the following link. Your local lab can assist you in obtaining the patient report if you don't have a Connect account. [email or web address] Phosphatidylethanol (PEth) is a group of phospholipids [...] developed and its performance characteristics determined by [employer]. It has not been cleared or approved by the U.S. Food and Drug Administration. This test was performed in a CLIA-certified laboratory and is intended for clinical purposes. Performed By: [facility] [address] [place] [address] Stucco Worker: Sotero Banuelos MD, PhD CLIA Number: [id number] us Estiven Martinez MD LAB REF LAB BLOOD AND FLUID O RD Final Result Performing Organization Address City/[facility]/ZIP Co de Phone Number [employer] [facility] [address] [place] [address] * (ABNORMAL) Phosphorus (07/27/2025 12:25 AM EDT) Only the most recent of17 resultswithin the time period is included. Phosphorus, Plasma 5.7(H) 2.5 - 4.5 mg/dL 07/27/2025 1:06 AM EDT [facility] Blood Venous blood specimen / Unknown Venipuncture / Unknown 07/27/2025 12:25 AM EDT 07/27/2025 12:45 AM EDT us Felton Wolfe MIXING MACHINE ATTENDANT, DNP LAB BLOOD ORDERABLES Fin al Result Performing Organization Address City/State/[facility] de Phone Number [facility] [address] [place] [address] * Urine Salcedo Panel (07/26/2025 6:45 PM EDT) Only the most recent of2 resultswithin the time period is included. Extra Reflex urine culture not indicated 07/26/2025 8:01 PM EDT [facility] Urine Urine specimen obtained by clean catch procedure / Unknown Non-blood Collection / Unknown 07/26/2025 6:45 PM EDT 07/26/2025 6:56 PM EDT k A Orthodox MIXING MACHINE ATTENDANT, DNP LAB URINE ORDERABLES Fin al Result Performing Organization Address [facility] Phone Number [facility] [address] [place] [address] * Urinalysis Microscopic Examination (07/26/2025 6:45 PM EDT) Only the most recent of5 resultswithin the time period is included. Urine Urine specimen obtained by clean catch procedure / Unknown Non-blood Collection / Unknown 07/26/2025 6:45 PM EDT 07/26/2025 6:55 PM EDT us Ya A Aiden SHAHN, DNP LAB URINE ORDERABLES Fin al Result Performing Organization Address [facility] de Phone Number [facility] [address] [place] [address] * Multi Drug Resistance Test (07/26/2025 6:45 PM EDT) Only the most recent of3 resultswithin the time period is included. Culture No growth at day 1 07/27/2025 8:57 PM EDT [facility] Swab (Nares and Cari Rectal) Non-blood Collection / Unknown 07/26/2025 6:45 PM EDT 07/26/2025 6:55 PM EDT Narrative [facility] - 07/27/2025 8:57 PM EDT This test was developed and its performance characteristics determined by the [facility]. Although the media is FDA-approved, it is not FDA-approved for all specimen types submitted. The FDA has determined that such clearance or approval is not necessary. This test is used for surveillance purposes. It should not be regarded as investigational or for research. The [facility] is certified under the Clinical Laboratory Improvement Amendments of 1988 (CLIA-88) as qualified to perform high complexity clinical laboratory testing. Felton Wolfe APRN, DNP LAB MICROBIOLOGY - GENER AL ORDERABLES Final Result Performing Organization Address City/[facility]/ZIP Co de Phone Number [facility] [address] [place] [address] * Urea Nitrogen, Random Urine (07/26/2025 6:45 PM EDT) Only the most recent of2 resultswithin the time period is included. Urea Nitrogen, Urine 369 mg/dL 07/26/2025 8:47 PM EDT [facility] Urine Urine specimen obtained by clean catch procedure / Unknown Non-blood Collection / Unknown 07/26/2025 6:45 PM EDT 07/26/2025 6:55 PM EDT Felton Wolfe APRN, DNP LAB URINE ORDERABLES Fin al Result Performing Organization Address [facility] [place] [address] * Sodium, Random, Urine (07/26/2025 6:45 PM EDT) Only the most recent of3 resultswithin the time period is included. Sodium, Urine 30 mmol/L 07/26/2025 9:10 PM EDT [facility] Urine Urine specimen obtained by clean catch procedure / Unknown Non-blood Collection / Unknown 07/26/2025 6:45 PM EDT 07/26/2025 6:55 PM EDT Estiven Martinez MD LAB URINE ORDERABLES Final Re sult Performing Organization Address City/[facility] Co de Phone Number [facility] [address] [place] [address] * Potassium, Random, Urine (07/26/2025 6:45 PM EDT) Only the most recent of2 resultswithin the time period is included. Potassium, Urine 41 mmol/L 07/26/2025 8:47 PM EDT [facility] Urine Urine specimen obtained by clean catch procedure / Unknown Non-blood Collection / Unknown 07/26/2025 6:45 PM EDT 07/26/2025 6:55 PM EDT us Estiven Martinez MD LAB URINE ORDERABLES Final Re sult Performing Organization Address [facility] de Phone Number [facility] [address] [place] [address] * Osmolality, urine (07/26/2025 6:45 PM EDT) Only the most recent of2 resultswithin the time period is included. Osmolality, Urine 347 50 - 1,200 mOsm/kg 07/26/2025 8:38 PM EDT [facility] Urine Urine specimen obtained by clean catch procedure / Unknown Non-blood Collection / Unknown 07/26/2025 6:45 PM EDT 07/26/2025 6:55 PM EDT us Felton Wolfe APRN, DNP LAB URINE ORDERABLES Fin al Result Performing Organization Address [facility] [place] [address] * Creatinine, Random, Urine (07/26/2025 6:45 PM EDT) Only the most recent of3 resultswithin the time period is included. Creatinine, Urine 217 mg/dL 07/26/2025 7:19 PM EDT [facility] Urine Urine specimen obtained by clean catch procedure / Unknown Non-blood Collection / Unknown 07/26/2025 6:45 PM EDT 07/26/2025 6:55 PM EDT us Felton Wolfe APRN DNP LAB URINE ORDERABLES Fin al Result [facility] [address] [place] [address] * Chloride, Random Urine (07/26/2025 6:45 PM EDT) Chloride, Urine 24 mmol/L 9:10 PM EDT [facility] Urine Urine specimen obtained by clean catch procedure / Unknown Non-blood Collection / Unknown 07/26/2025 6:45 PM EDT 07/26/2025 6:55 PM EDT us Felton Wolfe MIXING MACHINE ATTENDANT, DNP LAB URINE ORDERABLES Fin al Result [facility] [address] [place] [address] * (ABNORMAL) Urinalysis with reflex microscopic (Culture NOT Included) (07/26/2025 6:45 PM EDT) Only the most recent of5 resultswithin the time period is included. Color, Urine Other LAB URINALYSIS - AUTOMATED METHOD 07/26/2025 7:09 PM EDT [facility] Clarity, Urine Cloudy LAB URINALYSIS - AUTOMATED METHOD 07/26/2025 7:09 PM EDT [facility] Spec Edison, Urine 1.020 1.005 - 1.030 LAB URINALYSIS - AUTOMATED METHOD 07/26/2025 7:09 PM EDT [facility] pH, Urine 7.0 5.0 - 8.0 LAB URINALYSIS - AUTOMATED METHOD 07/26/2025 7:09 PM EDT [facility] Protein, Urine >=300(A) Negative mg/dL LAB URINALYSIS - AUTOMATED METHOD 07/26/2025 7:09 PM EDT [facility] Glucose, Urine Negative Negative mg/dL LAB URINALYSIS - AUTOMATED METHOD 07/26/2025 7:09 PM EDT [facility] Ketones, Urine Trace(A) Negative mg/dL LAB URINALYSIS - AUTOMATED METHOD 07/26/2025 7:09 PM EDT [facility] Blood, Urine Large(A) Negative LAB URINALYSIS - AUTOMATED METHOD 07/26/2025 7:09 PM EDT [facility] Bilirubin, Urine Large(A) Negative LAB URINALYSIS - AUTOMATED METHOD 07/26/2025 7:09 PM EDT [facility] Urobilinogen, Urine 2.0(A) 0.2 to 1.0 mg/dL LAB URINALYSIS - AUTOMATED METHOD 07/26/2025 7:09 PM EDT [facility] Leukocytes, Urine Moderate(A) Negative LAB URINALYSIS - AUTOMATED METHOD 07/26/2025 7:09 PM EDT [facility] Nitrite, Urine Positive(A) Negative LAB URINALYSIS - AUTOMATED METHOD 07/26/2025 7:09 PM EDT [facility] RBC, Urine >50(A) 0 to 3 /HPF 07/26/2025 7:09 PM EDT [facility] Comment:This result was prev iously suppressed from the chart. WBC, Urine 6 - 10(A) 0 to 5 /HPF 07/26/2025 7:09 PM EDT [facility] Comment:This result was prev iously suppressed from the chart. Squamous Epithelial Cells 0 - 2 0 to 5 /HPF 07/26/2025 7:09 PM EDT [facility] Comment:This result was prev iously suppressed from the chart. Hyaline Casts 0 - 2 0 to 5 /LPF 07/26/2025 7:09 PM EDT [facility] Comment:This result was prev iously suppressed from the chart. Bacteria, Urine Present Negative 07/26/2025 7:09 PM EDT [facility] Comment:This result was prev iously suppressed from the chart. Urine Urine specimen obtained by clean catch procedure / Unknown Non-blood Collection / Unknown 07/26/2025 6:45 PM EDT 07/26/2025 6:55 PM EDT Narrative [facility] - 07/26/2025 7:09 PM EDT Urinalysis dipstick results may be inaccurate due to specimen color or an interfering substance in the specimen. Performed by manual method us Felton Wolfe MIXING MACHINE ATTENDANT, DNP LAB URINE ORDERABLES Fin al Result [facility] [address] [place] [id number] * US Renal Complete (07/26/2025 4:49 PM EDT) Anatomical Region Laterality Modality Kidney Ultrasound Impressions 07/26/2025 5:04 PM EDT Thickened bladder wall. Increased parenchymal echogenicity suggests medical renal disease. No hydronephrosis. Right nephrolithiasis. Right cortical echogenic focus may represent angiomyolipoma. Renal cell carcinoma could also be considered. CRITICAL RESULT: No. COMMUNICATION: Per this written report. Drafted by Irena Osborne MD on 07/26/2025 4:58 PM Final report signed by Irena Osborne MD on 07/26/2025 5:04 PM Narrative 07/26/2025 5:04 PM EDT CLINICAL INDICATION: LALITA TECHNIQUE: Multiplanar static and cine salcedo scale ultrasound images of the kidneys and urinary bladder were obtained, accompanied by selective color Doppler ultrasound images. COMPARISON: CT July 22, 2025. FINDINGS: Right Kidney: Increased parenchymal echogenicity. Length 11.6 cm. No hydronephrosis. Nonobstructing nephrolithiasis. Probable exophytic cyst measuring 9 mm. Echogenic cortical focus measures 10 mm. No correlation on comparison imaging. Left Kidney: Increased parenchymal echogenicity. Length 12.4 cm. No hydronephrosis, obvious calculi or discernible mass. Urinary bladder: Distended urinary bladder with thickened wall. Procedure Note Irena Osborne MD - 07/26/2025 CLINICAL INDICATION: LALITA TECHNIQUE: Multiplanar static and cine salcedo scale ultrasound images of the kidneysand urinary bladder were obtained, accompanied by selective color Dopplerultrasound images. COMPARISON: CT July 22, 2025. FINDINGS: Right Kidney: Increased parenchymal echogenicity. Length 11.6 cm. Nohydronephrosis. Nonobstructing nephrolithiasis. Probable exophytic cystmeasuring 9 mm. Echogenic cortical focus measures 10 mm. No correlation oncomparison imaging. Left Kidney: Increased parenchymal echogenicity. Length 12.4 cm. Nohydronephrosis, obvious calculi or discernible mass. Urinary bladder: Distended urinary bladder with thickened wall. IMPRESSION: Thickened bladder wall. Increased parenchymal echogenicity suggests medical renal disease. Nohydronephrosis. Right nephrolithiasis. Right cortical echogenic focus may represent angiomyolipoma. Renal cellcarcinoma could also be considered. CRITICAL RESULT: No. COMMUNICATION: Per this written report. Drafted by Irena Osborne MD on 07/26/2025 4:58 PM Final report signed by Irena Osborne MD on 07/26/2025 5:04 PM Estiven Martinez MD [facility] PROCEDURES Final Resul t * Vitamin B1, Whole Blood (07/26/2025 11:08 AM EDT) VITAMIN B1, WHOLE BLOOD 103 70 - 180 nmol/L 07/31/2025 6:54 AM EDT [facility] ([facility]) Blood Venous blood specimen / Unknown Venipuncture / Unknown 07/26/2025 11:08 AM EDT 07/26/2025 11:17 AM EDT Narrative [facility] ([facility]) - 07/31/2025 6:54 AM EDT INTERPRETIVE INFORMATION: Vitamin B1, Whole Blood This assay measures the concentration of thiamine diphosphate (TDP), the primary active form of vitamin B1. Approximately 90 percent of vitamin B1 present in whole blood is TDP. Thiamine and thiamine monophosphate, which comprise the remaining 10 percent, are not measured. This test was developed and its performance characteristics determined by [employer]. It has not been cleared or approved by the [place] Food and Drug Administration. This test was performed in a CLIA certified laboratory and is intended for clinical purposes. Performed By: [facility] [address] [place] [address] Stucco Worker: Sotero Banuelos MD, PhD CLIA Number: [id number] Felton Wolfe APRN, DNP LAB BLOOD ORDERABLES Fin al Result [facility] ([facility]) [address] [id number] * Osmolality, Serum (07/26/2025 11:08 AM EDT) Only the most recent of3 resultswithin the time period is included. Osmolality, Serum 299 280 - 301 mOsm/Kg 07/26/2025 11:48 PM EDT [facility] Blood Venous blood specimen / Unknown Venipuncture / Unknown 07/26/2025 11:08 AM EDT 07/26/2025 11:17 AM EDT us Estiven Martinez MD LAB BLOOD ORDERABLES Final Re sult [facility] [address] [place] [address] * (ABNORMAL) Basic metabolic panel (07/26/2025 11:08 AM EDT) Only the most recent of9 resultswithin the time period is included. Glucose, Plasma 78 74 - 99 mg/dL 07/26/2025 11:41 AM EDT [facility] BUN, Plasma 68(H) 8 - 23 mg/dL 07/26/2025 11:41 AM EDT [facility] Creatinine, Plasma 6.63(H) 0.70 - 1.20 mg/dL 07/26/2025 11:41 AM EDT [facility] BUN/Creatinine Ratio 10 07/26/2025 11:41 AM EDT [facility] Sodium, Plasma 132(L) 136 - 145 mmol/L 07/26/2025 11:41 AM EDT [facility] Potassium, Plasma 4.9 3.6 - 4.9 mmol/L 07/26/2025 11:41 AM EDT [facility] Chloride, Plasma 102 97 - 107 mmol/L 07/26/2025 11:41 AM EDT [facility] CO2, Plasma 17(L) 22 - 29 mmol/L 07/26/2025 11:41 AM EDT [facility] Anion Gap 13 6 - 16 mmol/L 07/26/2025 11:41 AM EDT [facility] Total Calcium, Plasma 8.1(L) 8.9 - 10.2 mg/dL 07/26/2025 11:41 AM EDT [facility] eGFRcr 8.4 mL/min/1.7 3m*2 07/26/2025 11:41 AM EDT [facility] Comment:Reported eGFRcr in m L/min/1.73m2 is based the CKD-EPI 2020 equation that does not use a race coefficient. Blood Venous blood specimen / Unknown Venipuncture / Unknown 07/26/2025 11:08 AM EDT 07/26/2025 11:17 AM EDT us Felton Wolfe MIXING MACHINE ATTENDANT, DNP LAB BLOOD ORDERABLES Fin al Result Performing Organization Address [facility] Co de Phone Number [facility] [address] [place] [address] * (ABNORMAL) TSH Reflex FT4 (07/26/2025 5:33 AM EDT) Thyroid Stimulating Hormone, Plasma 4.24(H) 0.40 - 4.20 uIU/mL 07/26/2025 6:09 AM EDT [facility] Blood Venous blood specimen / Unknown Venipuncture / Unknown 07/26/2025 5:33 AM EDT 07/26/2025 5:37 AM EDT us Felton Wolfe APRN, [facility] LAB BLOOD ORDERABLES Fin al Result Performing Organization Address [facility] de Phone Number [facility] [address] [place] [address] * (ABNORMAL) Procalcitonin, Plasma (07/26/2025 5:33 AM EDT) Only the most recent of5 resultswithin the time period is included. Procalcitonin, Plasma 1.40(H) <0.09 ng/mL 07/26/2025 6:09 AM EDT [facility] Blood Venous blood specimen / Unknown Venipuncture / Unknown 07/26/2025 5:33 AM EDT 07/26/2025 5:37 AM EDT Narrative [facility] - 07/26/2025 6:09 AM EDT Procalcitonin concentrations in healthy individuals [...] predict 28 day mortality risk. Please consult [email or web address]-[email or web address] for more information. Test performed at [facility]. us Felton Wolfe APRN, [facility] LAB BLOOD ORDERABLES Fin al Result Performing Organization Address [facility] de Phone Number [facility] [address] [place] [address] * (ABNORMAL) Iron & Total Iron Binding Capacity, Plasma (Includes Transferrin) (07/26/2025 5:33 AM EDT) Iron, Plasma 29(L) 50 - 170 ug/dL 07/26/2025 8:12 AM EDT [facility] Transferrin, Plasma 130(L) 200 - 360 mg/dL 07/26/2025 8:12 AM EDT [facility] Total Iron Binding Capacity, Plasma 163(L) 240 - 450 ug/mL 07/26/2025 8:12 AM EDT [facility] Transferrin Saturation 18 14 - 50 % 07/26/2025 8:12 AM EDT [facility] Blood Venous blood specimen / Unknown Venipuncture / Unknown 07/26/2025 5:33 AM EDT 07/26/2025 5:37 AM EDT us Felton Wolfe APRN, [facility] LAB BLOOD ORDERABLES Fin al Result Performing Organization Address [facility] Phone Number [facility] [address] [place] [address] * Free T4, Plasma (07/26/2025 5:33 AM EDT) Only the most recent of2 resultswithin the time period is included. Free T4, Plasma 0.8 0.8 - 1.7 ng/dL 07/26/2025 6:40 AM EDT [facility] Blood Venous blood specimen / Unknown Venipuncture / Unknown 07/26/2025 5:33 AM EDT 07/26/2025 5:37 AM EDT us Felton Wolfe APRN, [facility] LAB BLOOD ORDERABLES Fin al Result Performing Organization Address City/[facility] de Phone Number [facility] [address] [place], [place] [id number] * Folate (07/26/2025 5:33 AM EDT) Folate, Serum 14.8 >4.6 ng/mL 07/26/2025 9:13 AM EDT [facility] Blood Venous blood specimen / Unknown Venipuncture / Unknown 07/26/2025 5:33 AM EDT 07/26/2025 5:36 AM EDT us Felton Wolfe APRN, DNP LAB BLOOD ORDERABLES Fin al Result [facility] [address] [place] [address] * Ferritin (07/26/2025 5:33 AM EDT) Ferritin, Serum 315 20 - 400 ng/mL 07/26/2025 9:13 AM EDT [facility] Blood Venous blood specimen / Unknown Venipuncture / Unknown 07/26/2025 5:33 AM EDT 07/26/2025 5:36 AM EDT us Felton Wolfe APRN, DNP LAB BLOOD ORDERABLES Fin al Result [facility] [address] [place] [address] * (ABNORMAL) Vitamin B12 (07/26/2025 5:33 AM EDT) Vitamin B12, Serum 1,433(H) 210 - 1,033 pg/mL 07/26/2025 9:13 AM EDT [facility] Blood Venous blood specimen / Unknown Venipuncture / Unknown 07/26/2025 5:33 AM EDT 07/26/2025 5:36 AM EDT us Felton Wolfe APRN, DNP LAB BLOOD ORDERABLES Fin al Result [facility] [address] [place] [address] * Cortisol (07/26/2025 5:33 AM EDT) Cortisol 11.90 Before 10am: 3.7 - 19.4. After 5pm: 2.9 - 17.3 ug/dL 07/26/2025 12:38 PM EDT [facility] Comment:Testing performed on [employer]aran[employer] Layaway Clerk, standardized against MCC Reference Standard concentration values assigned by LC-MS/MS and verified by BCR 192 and BCR 193 certified reference materials. Blood Venous blood specimen / Unknown Venipuncture / Unknown 07/26/2025 5:33 AM EDT 07/26/2025 5:36 AM EDT us Felton Wolfe MIXING MACHINE ATTENDANT, DNP LAB REF LAB BLOOD AND FL UID ORD Final Result Performing Organization Address City/[facility]/ZIP Co de Phone Number [facility] [address] [place] [address] * BNP (07/26/2025 3:25 AM EDT) Only the most recent of3 resultswithin the time period is included. Pathologist [facility] N-Terminal, PROBNP, Plasma 685 0 - 899 pg/mL 07/26/2025 3:56 AM EDT [facility] Blood Venous blood specimen / Unknown Venipuncture / Unknown 07/26/2025 3:25 AM EDT 07/26/2025 3:27 AM EDT us Do Guillory PA LAB BLOOD ORDERABLES Final Result Performing Organization Address City/[facility]/ZIP Co de Phone Number [facility] [address] [place] [address] * (ABNORMAL) Sedimentation Rate, Automated (07/26/2025 3:25 AM EDT) Only the most recent of3 resultswithin the time period is included. Pathologist [facility] Sedimentation Rate 25(H) <20 mm/hr 2024 4:59 AM EDT [facility] Blood Venous blood specimen / Unknown Venipuncture / Unknown 07/26/2025 3:25 AM EDT 07/26/2025 3:27 AM EDT mike Tj Wolfe APRN, DNP LAB BLOOD ORDERABLES Fin al Result Performing Organization Address City/[facility] Co de Phone Number [facility] [address] [place] [address] * (ABNORMAL) C-Reactive Protein, Plasma (Use only for Muscle/Bone/Joint Infections) (07/26/2025 3:25 AM EDT) Only the most recent of3 resultswithin the time period is included. CRP, Plasma 49.2(H) <=8.0 mg/L 07/26/2025 5:08 AM EDT [facility] Blood Venous blood specimen / Unknown Venipuncture / Unknown 07/26/2025 3:25 AM EDT 07/26/2025 3:27 AM EDT Narrative [facility] - 07/26/2025 5:08 AM EDT This CRP test is appropriate for assessment of infection, systemic inflammation and/or tissue injury. To assess cardiovascular disease risk order high sensitivity CRP (CRPH). Felton Wolfe APRN, DNP LAB BLOOD ORDERABLES Fin al Result Performing Organization Address [facility] de Phone Number [facility] [address] [place] [address] * (ABNORMAL) Blood gas panel, venous (07/26/2025 3:25 AM EDT) Only the most recent of2 resultswithin the time period is included. pH, Venous 7.38 7.32 - 7.43 LAB HEMATOLOGY METHOD 07/26/2025 3:28 AM EDT [facility] pCO2, Venous 33(L) 40 - 55 mmHg LAB HEMATOLOGY METHOD 07/26/2025 3:28 AM EDT [facility] pO2, Venous 34 25 - 40 mmHg LAB HEMATOLOGY METHOD 07/26/2025 3:28 AM EDT [facility] SO2, Measured, Venous 59(L) 65 - 80 % LAB HEMATOLOGY METHOD 07/26/2025 3:28 AM EDT [facility] Base Excess, Venous -4.6(L) -2.0 - 3.0 mmol/L LAB HEMATOLOGY METHOD 07/26/2025 3:28 AM EDT [facility] Bicarbonate, Calculated, Venous 20(L) 22 - 26 mmol/L LAB HEMATOLOGY METHOD 07/26/2025 3:28 AM EDT [facility] Hematocrit, Whole Blood 33.5(L) 40.0 - 51.0 % LAB HEMATOLOGY METHOD 07/26/2025 3:28 AM EDT [facility] Sodium, Whole Blood 131(L) 136 - 145 mmol/L LAB HEMATOLOGY METHOD 07/26/2025 3:28 AM EDT [facility] Potassium, Whole Blood 4.5 3.6 - 4.9 mmol/L LAB HEMATOLOGY METHOD 07/26/2025 3:28 AM EDT [facility] Chloride, Whole Blood 104 97 - 107 mmol/L LAB HEMATOLOGY METHOD 07/26/2025 3:28 AM EDT [facility] Glucose, Whole Blood 70(L) 74 - 99 mg/dL LAB HEMATOLOGY METHOD 07/26/2025 3:28 AM EDT [facility] Lactate, Venous, Whole Blood 1.8 0.5 - 2.2 mmol/L LAB HEMATOLOGY METHOD 07/26/2025 3:28 AM EDT [facility] Ionized Calcium, Whole Blood 4.3(L) 4.6 - 5.1 mg/dL LAB HEMATOLOGY METHOD 07/26/2025 3:28 AM EDT [facility] Blood Venous blood specimen / Unknown Venipuncture / Unknown 07/26/2025 3:25 AM EDT 07/26/2025 3:26 AM EDT Do RODRIGUEZ LAB BLOOD ORDERABLES Final Result Performing Organization Address City/State/[facility] Co de Phone Number [facility] [address] [place] [address] * CT OUTSIDE IMAGES (07/25/2025 6:09 PM EDT) Anatomical Region Laterality Modality Computed Tomogra phy 07/25/2025 6:09 PM EDT us External Provider IMG CT PROCEDURES Final Result * XR OUTSIDE IMAGES (07/25/2025 4:55 PM EDT) Anatomical Region Laterality Modality Radiographic Julia ging 07/25/2025 4:55 PM EDT us External Provider IMG XR PROCEDURES Final Result * Urine Culture - Clinic Collect (07/22/2025 10:26 AM EDT) Only the most recent of2 resultswithin the time period is included. Culture <10,000 CFU/mL Mixed urogenital, fecal, or skin kelsi present. 07/23/2025 8:34 AM EDT [facility] Urine Urine specimen obtained by clean catch procedure / Unknown Non-blood Collection / Unknown 07/22/2025 10:26 AM EDT 07/22/2025 10:49 AM EDT Dyllan Paul MD LAB MICROBIOLOGY - GENERAL OR DERABLES Final Result [facility] [address] [place] [address] * CT Urogram (07/22/2025 7:53 AM EDT) [...] following split bolus administration of IV contrast, [id number], 150 mL. Reformatted images in the coronal [...] LAB HEMATOLOGY METHOD 07/04/2025 5:48 AM EDT [facility] RBC Count 3.46(L) 4.60 - 6.10 10*6/uL LAB HEMATOLOGY METHOD 07/04/2025 5:48 AM EDT [facility] HGB 11.3(L) 13.7 - 17.5 g/dL LAB HEMATOLOGY METHOD 07/04/2025 5:48 AM EDT [facility] HCT 33.0(L) 40.0 - 51.0 % LAB HEMATOLOGY METHOD 07/04/2025 5:48 AM EDT [facility] Platelet Count 114(L) 155 - 369 10*3/uL LAB HEMATOLOGY METHOD 07/04/2025 5:48 AM EDT [facility] MCV 95 79 - 98 fL LAB HEMATOLOGY METHOD 07/04/2025 5:48 AM EDT [facility] MCH 32.7(H) 26.0 - 32.0 pg LAB HEMATOLOGY METHOD 07/04/2025 5:48 AM EDT [facility] MCHC 34.2 30.7 - 35.5 g/dL LAB HEMATOLOGY METHOD 07/04/2025 5:48 AM EDT [facility] RDW 15.7(H) 11.5 - 14.5 % LAB HEMATOLOGY METHOD 07/04/2025 5:48 AM EDT [facility] MPV 11.0 8.8 - 12.5 fL LAB HEMATOLOGY METHOD 07/04/2025 5:48 AM EDT [facility] nRBC 0.0 <=0.0 per 100 WBCs LAB HEMATOLOGY METHOD 07/04/2025 5:48 AM EDT [facility] Blood Venous blood specimen / Unknown Venipuncture / Unknown 07/04/2025 5:26 AM EDT 07/04/2025 5:37 AM EDT us Quentin Anderson MD LAB BLOOD ORDERABLES Final Result [facility] [address] [place] [address] * [place] Less than 1 Hour Intraoperative [...] Mass 807 mg 07/08/2025 6:16 PM EDT [facility] ([facility]) Calculi Description See Note 07/08/2025 6:16 PM EDT [facility] ([facility]) Calculi Composition See Note 07/08/2025 6:16 PM EDT [employer] ([facility]) Calculus Urinary bladder structure / Unknown 07/03/2025 6:12 PM EDT 07/03/2025 6:35 PM EDT Comment:Pre-op diagnosis: Right ureteral stone [N20.1] Narrative [facility] ([place]) - 07/08/2025 6:16 PM EDT Specimen consists [...] composition determined by FTIR analysis. Performed By: [employer] [address] [place] [address] Stucco Worker: Sotero Banuelos MD, PhD CLIA Number: [id number] Dyllan Paul MD LAB REF LAB BLOOD AND FLUID O RD Final Result Performing Organization Address City/[facility]/ZIP Co de Phone Number [facility]) [address] [phone] * CT AN ELECTIVE ENDOTRACHEAL AIRWAY, PB ANESTHESIA PLACEHOLDER (07/03/2025 5:33 PM EDT) Narrative Lary Bloom, ALEX, DNP - 07/03/2025 5:33 PM EDT Lary Bloom CRNA, DNP 07/03/2025 5:47 PM Airway Date/Time: 07/03/2025 5:33 PM Reason: elective Airway not difficult General Information and Staff Patient location during procedure: OR MILLINERY DESIGNER: Lary Bloom CRNA, DNP Performed: ALEX Patient Condition Indications for airway management: anesthesia [...] MD ANESTHESIA ORDERABLES Final Re sult * Lactate, venous (06/30/2025 3:11 PM EDT) Only the most recent of3 resultswithin the time period is included. Lactate, Venous, Whole Blood 1.4 0.5 - 2.2 mmol/L LAB HEMATOLOGY METHOD 06/30/2025 3:25 PM EDT [facility] Blood Venous blood specimen / Unknown Venipuncture / Unknown 06/30/2025 3:11 PM EDT 06/30/2025 3:23 PM EDT Lizzie Biggs MD LAB BLOOD ORDERABLES Fi nal Result [facility] [address] [place] [address] * Vancomycin, random (06/30/2025 12:48 PM EDT) Only the most recent of3 resultswithin the time period is included. Vancomycin, Random, Plasma 13.3 ug/mL 06/30/2025 3:07 PM EDT [facility] Blood Venous blood specimen / Unknown Venipuncture / Unknown 06/30/2025 12:48 PM EDT 06/30/2025 12:58 PM EDT Jennifer Mcgrath MD LAB BLOOD ORDERABLES Final Resu lt Performing Organization Address [facility] Co de Phone Number [facility] [address] [place] [address] * (ABNORMAL) Cystatin C (06/30/2025 6:01 AM EDT) Only the most recent of3 resultswithin the time period is included. Cystatin C 1.58(H) 0.61 - 0.95 mg/L 06/30/2025 6:40 AM EDT [facility] Blood Venous blood specimen / Unknown Venipuncture / Unknown 06/30/2025 6:01 AM EDT 06/30/2025 6:10 AM EDT Lizzie Biggs MD LAB BLOOD ORDERABLES Fi nal Result Performing Organization Address [facility] Co de Phone Number [facility] [address] [place] [address] * (ABNORMAL) Ammonia, Plasma (06/30/2025 6:01 AM EDT) Only the most recent of6 resultswithin the time period is included. Ammonia 64(H) 11 - 51 umol/L 06/30/2025 6:38 AM EDT [facility] Comment:Improper specimen marquez ndling may falsely increase results. Blood Venous blood specimen / Unknown Venipuncture / Unknown 06/30/2025 6:01 AM EDT 06/30/2025 6:08 AM EDT Homero Gutierrez APRN, DNP LAB BLOOD ORDERAB LES Final Result Performing Organization Address [facility] Co de Phone Number [facility] [address] [place] [address] * US Abdomen Focused Region Liver, Pancreas, [...] on 06/29/2025 3:58 PM Lizzie Biggs MD [facility] PROCEDURES Final Result * Methicillin Resistant Staphylococcus aureus (MRSA) by PCR (06/29/2025 9:39 AM EDT) Methicillin Resistant Staphylococcus aureus (MRSA) by PCR Not Detected Not Detected 06/29/2025 12:04 PM EDT [facility] Swab Both anterior nares / Unknown Non-blood Collection / Unknown 06/29/2025 9:39 AM EDT 06/29/2025 10:18 AM EDT Narrative [facility] - 06/29/2025 12:04 PM EDT [...] GENERAL ORDERABLES Final Result Performing Organization Address City/[facility]/ZIP Co de Phone Number [facility] [address] [place] [address] * (ABNORMAL) Wound Culture and Gram Stain (06/29/2025 9:39 AM EDT) CULTURE READING WOUND Light Growth 07/02/2025 12:29 PM EDT [facility] CULTURE READING WOUND Staphylococcus epidermidis(A) 07/02/2025 12:29 PM EDT [facility] Comment: This isolate has been identified using the FDA Approved [place] [employer] [place] System The organism value for this result has been updated. These results have been appended to the previously preliminary verified report. Edited result: Previously reported as Gram positive cocci on 07/01/2025 at 0744 EDT. Gram Stain Result Numerous Polymorphonuclear leukocytes(A) 07/02/2025 12:29 PM EDT [facility] Gram Stain Result Rare Gram negative rods(A) 07/02/2025 12:29 PM EDT [facility] Swab Skin structure / Unknown Non-blood Collection / Unknown 06/29/2025 9:39 AM EDT 06/29/2025 2:57 PM EDT Homerocrow Gutierrez APRN, DNP LAB MICROBIOLOGY - GENERAL ORDERABLES Final Result Performing Organization Address [facility] Co de Phone Number [facility] [address] [place] [address] * (ABNORMAL) Ionized calcium, whole blood (06/29/2025 6:52 AM EDT) Only the most recent of3 resultswithin the time period is included. Ionized Calcium, Whole Blood 4.1(L) 4.6 - 5.1 mg/dL LAB HEMATOLOGY METHOD 06/29/2025 7:12 AM EDT [facility] Blood Venous blood specimen / Unknown Venipuncture / Unknown 06/29/2025 6:52 AM EDT 06/29/2025 6:55 AM EDT us Homerocrow Gutierrez APRN, DNP LAB BLOOD ORDERAB LES Final Result Performing Organization Address City/[facility]/ZIP Co de Phone Number [facility] [address] [place] [address] * (ABNORMAL) GGT (06/29/2025 6:52 AM EDT) GGT, Plasma 116(H) 8 - 61 U/L 06/29/2025 8:35 AM EDT [facility] Blood Venous blood specimen / Unknown Venipuncture / Unknown 06/29/2025 6:52 AM EDT 06/29/2025 6:56 AM EDT us Homerocrow Gutierrez APRN, [facility] LAB BLOOD ORDERAB LES Final Result Performing Organization Address City/[facility]/[place] [address] * SEND SELIN MESSAGE (06/29/2025 2:00 AM EDT) Urine Urine specimen obtained by clean catch procedure / Unknown Non-blood Collection / Unknown 06/29/2025 2:00 AM EDT 06/29/2025 2:22 AM EDT us Rg Coleman MD LAB URINE ORDERABLES Final Res ult Performing Organization Address City/[facility]/ZIP Co de Phone Number [facility] [address] [place] [address] * (ABNORMAL) Troponin T, High Sensitivity, 2 Hour, Plasma (06/28/2025 11:57 PM EDT) Only the most recent of2 resultswithin the time period is included. Troponin T, High Sensitivity, 2 Hour 22(H) <19 ng/L 06/29/2025 12:22 AM EDT [facility] Troponin Delta 2 <10 ng/L 06/29/2025 12:22 AM EDT [facility] Troponin Delta Interpretation Not Significant 06/29/2025 12:22 AM EDT [facility] Comment:Not Significant. No acute change in troponin observed between the baseline and 2 hour samples. Blood Venous blood specimen / Unknown Venipuncture / Unknown 06/28/2025 11:57 PM EDT 06/29/2025 12:03 AM EDT us Rg Coleman MD LAB BLOOD ORDERABLES Final Res ult [facility] [address] [place] [address] * CT Angio Abdomen Pelvis (06/28/2025 11:11 [...] Total DLP (Dose-Length Product): 2949.46 mGy.cm (accession [id number]), 2949.46 mGy.cm (accession [id number]). Please note: The reported value represents the [...] Total DLP (Dose-Length Product): 2949.46 mGy.cm (accession [id number]),2949.46 mGy.cm (accession [id number]). Please note: The reported valuerepresents the total [...] Total DLP (Dose-Length Product): 2949.46 mGy.cm (accession [id number]), 2949.46 mGy.cm (accession [id number]). Please note: The reported value represents the [...] Total DLP (Dose-Length Product): 2949.46 mGy.cm (accession [id number]),2949.46 mGy.cm (accession [id number]). Please note: The reported valuerepresents the total [...] 24(H) <19 ng/L 06/28/2025 10:15 PM EDT [facility] Blood Venous blood specimen / Unknown Venipuncture / Unknown 06/28/2025 9:39 PM EDT 06/28/2025 9:47 PM EDT Rg Coleman MD LAB BLOOD ORDERABLES Final Res ult Performing Organization Address [facility] Co de Phone Number [facility] [address] [place] [address] * Blood Culture (Aerobic/Anaerobet Set) (06/28/2025 9:39 PM EDT) Only the most recent of4 resultswithin the time period is included. Culture No growth at day 5 07/03/2025 11:02 PM EDT [facility] Blood Structure of left hand / Unknown Venipuncture / Unknown 06/28/2025 9:39 PM EDT 06/28/2025 10:04 PM EDT Rg Coleman MD LAB MICROBIOLOGY - GENERAL ORD ERABLES Final Result Performing Organization Address [facility] Co de Phone Number [facility] [address] [place] [address] * (ABNORMAL) APTT (06/28/2025 9:39 PM EDT) Only the most recent of2 resultswithin the time period is included. aPTT 70(H) 25 - 35 sec 06/28/2025 10:05 PM EDT [facility] Blood Venous blood specimen / Unknown Venipuncture / Unknown 06/28/2025 9:39 PM EDT 06/28/2025 9:47 PM EDT Rg Coleman MD LAB BLOOD ORDERABLES Final Res ult Performing Organization Address [facility] Co de Phone Number [facility] [address] [place] [address] * (ABNORMAL) Lipase (06/28/2025 9:39 PM EDT) Lipase, Plasma 91(H) 19 - 63 U/L 06/29/2025 7:03 AM EDT [facility] Blood Venous blood specimen / Unknown Venipuncture / Unknown 06/28/2025 9:39 PM EDT 06/28/2025 9:47 PM EDT us Homero Gutierrez APRN, [facility] LAB BLOOD ORDERAB LES Final Result [facility] [address] [place] [address] * (ABNORMAL) POCT venous blood gas gem [...] - 99 mg/dL 06/28/2025 9:35 PM EDT [facility] Ionized Calcium, Venous 4.2(L) 4.6 [...] 06/28/2025 9:35 PM EDT [facility] Aviation Safety Equipment Technician ID SHIRA Herzog 06/28/2025 9:35 PM EDT [facility] Blood, Venous Whole blood specimen / Unknown 06/28/2025 9:33 PM EDT 06/28/2025 9:35 PM EDT us Generic Provider Poct LAB POINT OF CARE TEST DOCKED DEVICE UNSOLICITED RESULTS Final Result Performing Organization Address City/State/[facility] Co de Phone Number [facility] [address] [place], [place] [phone] * VAS US Venous Duplex Lower Extremity [...] Scout Gilbert MD on 06/24/2025 4:56 PM Dyllan [...] Scout Gilbert MD on 06/24/2025 4:57 PM Dyllan Paul MD CV VASCULAR PROCEDURES Final Result * Potassium level repeated 2 hours after the total replacement is completed (06/24/2025 12:35 PM EDT) Potassium, Plasma 3.6 3.6 - 4.9 mmol/L 06/24/2025 1:21 PM EDT [facility] Blood Venous blood specimen / Unknown Venipuncture / Unknown 06/24/2025 12:35 PM EDT 06/24/2025 12:58 PM EDT us Camden Hilario MD LAB BLOOD ORDERABLES Final Result Performing Organization Address [facility]/ZIP Co de Phone Number [facility] [address] [place] [address] * Peripheral blood smear, pathologist interpretation (06/24/2025 2:14 AM EDT) Clinical Diagnosis, Peripheral Smear Leukocytosis, recent surgery (prostatectomy for prostate cancer), history of cirrhosis LAB HEMATOLOGY METHOD 06/24/2025 3:21 PM EDT [facility] Interpretation , Peripheral Smear Moderate leukocytosis with neutrophilia, left shift and toxic granulations. Few atypical small lymphocytes with mature condensed chromatin. Mild anemia with anisocytosis. Mild thrombocytopeni a. See comment 06/24/2025 3:21 PM EDT [facility] Pathologist Signature, Peripheral Smear 06/24/2025 3:21 PM EDT [facility] Comment:Reviewed by: Sue Stapleton MD Blood Venous blood specimen / Unknown Venipuncture / Unknown 06/24/2025 2:14 AM EDT 06/24/2025 2:19 AM EDT Narrative [facility] - 06/24/2025 3:21 PM EDT The lymphocyte morphology is concerning for chronic lymphoproliferative disorder. A flow cytometry immunophenotyping is suggested, if clinically indicated. us Dyllan Paul MD LAB PATHOLOGY ORDERABLES Francia l Result Performing Organization Address City/[facility]/ZIP Co de Phone Number [facility] [address] [place] [address] * Clostridiodes (Clostridium) difficile PCR (06/23/2025 9:17 AM EDT) C difficile PCR toxin B gene DNA Result Not Detected Not Detected 06/23/2025 11:44 AM EDT [facility] Stool Rectum structure / Unknown Non-blood Collection / Unknown 06/23/2025 9:17 AM EDT 06/23/2025 10:27 AM EDT Narrative [facility] - 06/23/2025 11:44 AM EDT [...] MICROBIOLOGY - GENERAL OR DERABLES Final Result [facility] [address] [place] [address] * CT Angio Pulmonary Embolism (06/22/2025 2:26 [...] IMG CT PROCEDURES Final Resul t * Creatinine, Drain Fluid (06/20/2025 1:43 PM EDT) Creatinine, Fluid 1.35 mg/dL 06/20/2025 3:10 PM EDT [facility] Fluid Drainage fluid specimen / Unknown 06/20/2025 1:43 PM EDT 06/20/2025 2:15 PM EDT Narrative [facility] - 06/20/2025 3:10 PM EDT Reference Values: No established reference interval. Results should be interpreted in comparison to the concentration in blood and in conjunction with the clinical context. This test was developed and its performance characteristics determined by [facility]. The U.S. Food and Drug [...] FLUIDS AND STOOLS OR DERABLES Final Result [facility] [address] [place] [address] * FL Cystogram (06/20/2025 10:01 AM EDT) [...] radiograph from June 14, 2025. FINDINGS: On merchandise manager images, there are 3 rounded calcifications overlying [...] 2025. Abdominal radiograph from 2024. FINDINGS: On merchandise manager images, there are 3 rounded calcifications overlying [...] Ed ited Result - Final * (ABNORMAL) Hepatic function panel (06/19/2025 1:00 AM EDT) Direct Bilirubin, Plasma 1.1(H) <=0.3 mg/dL 06/19/2025 6:48 PM EDT [facility] Comment:Hemolyzed, result ma y be falsely decreased. Alkaline Phosphatase, Plasma 179(H) 40 - 115 U/L 06/19/2025 6:48 PM EDT [facility] Total Bilirubin, Plasma 2.5(H) 0.2 - 1.1 mg/dL 06/19/2025 6:48 PM EDT [facility] Albumin, Plasma 2.7(L) 3.5 - 5.2 g/dL 06/19/2025 6:48 PM EDT [facility] Total Protein 5.1(L) 6.3 - 7.9 g/dL 06/19/2025 6:48 PM EDT [facility] ALT, Plasma 33 10 - 50 U/L 06/19/2025 6:48 PM EDT [facility] AST, Plasma 59(H) 10 - 50 U/L 06/19/2025 6:48 PM EDT [facility] Comment:Hemolyzed, result ma y be falsely increased. Blood Venous blood specimen / Unknown Venipuncture / Unknown 06/19/2025 1:00 AM EDT 06/19/2025 1:04 AM EDT us Anna Armas MD LAB BLOOD ORDERABLES Final Resul t [facility] [address] [place] [address] * CT CRITICAL CARE, E/M 30-74 MINUTES [...] LAB HEMATOLOGY METHOD 06/18/2025 5:59 AM EDT [facility] pCO2, Arterial 36 32 - 45 mmHg LAB HEMATOLOGY METHOD 06/18/2025 5:59 AM EDT [facility] pO2, Arterial 63(L) >70 mmHg LAB HEMATOLOGY METHOD 06/18/2025 5:59 AM EDT [facility] SO2, Measured, Arterial 94 94 - 98 % LAB HEMATOLOGY METHOD 06/18/2025 5:59 AM EDT [facility] Base Excess, Arterial 3.3(H) -2.0 - 3.0 mmol/L LAB HEMATOLOGY METHOD 06/18/2025 5:59 AM EDT [facility] Bicarbonate, Calculated, Arterial 27(H) 22 - 26 mmol/L LAB HEMATOLOGY METHOD 06/18/2025 5:59 AM EDT [facility] Hematocrit, Whole Blood 37.9(L) 40.0 - 51.0 % LAB HEMATOLOGY METHOD 06/18/2025 5:59 AM EDT [facility] Sodium, Whole Blood 153(H) 136 - 145 mmol/L LAB HEMATOLOGY METHOD 06/18/2025 5:59 AM EDT [facility] Potassium, Whole Blood 4.3 3.6 - 4.9 mmol/L LAB HEMATOLOGY METHOD 06/18/2025 5:59 AM EDT [facility] Chloride, Whole Blood 119(H) 97 - 107 mmol/L LAB HEMATOLOGY METHOD 06/18/2025 5:59 AM EDT [facility] Glucose, Whole Blood 138(H) 74 - 99 mg/dL LAB HEMATOLOGY METHOD 06/18/2025 5:59 AM EDT [facility] Ionized Calcium, Whole Blood 5.1 4.6 - 5.1 mg/dL LAB HEMATOLOGY METHOD 06/18/2025 5:59 AM EDT [facility] Lactate, Arterial, Whole Blood 1.6 0.5 - 1.6 mmol/L LAB HEMATOLOGY METHOD 06/18/2025 5:59 AM EDT [facility] Blood Arterial blood specimen / Unknown Arterial Puncture / Unknown 06/18/2025 5:47 AM EDT 06/18/2025 5:57 AM EDT Michelle Iniguez APRN LAB BLOOD ORDERABLES Final R esult [facility] [address] [place] [address] * CT Head wo IV Contrast (06/17/2025 [...] IMG CT PROCEDURES Final Res ult * CT CRITICAL CARE, E/M 30-74 MINUTES [...] on 06/17/2025 9:45 AM Corry Doss APRN, LUDMILA IMG XR PROCEDURES Fi nal Result * Thyroid Stimulating Hormone, Plasma (06/17/2025 12:24 AM EDT) Thyroid Stimulating Hormone, Plasma 1.19 0.40 - 4.20 uIU/mL 06/17/2025 8:59 AM EDT [facility] Blood Venous blood specimen / Unknown Venipuncture / Unknown 06/17/2025 12:24 AM EDT 06/17/2025 12:36 AM EDT us Lillian RODRIGUEZ LAB BLOOD ORDERABLES Final Result [facility] [address] [place] [address] * CT CRITICAL CARE, E/M 30-74 MINUTES [...] is no recent study available for direct ddpk-ph-[id number] comparison. Left Ventricle Based on the linear [...] is no recent study available for direct [id number] comparison. us Raymond Katz APRN CV ECHO PROCEDURES Final Resu lt * Triglycerides (06/16/2025 4:24 AM EDT) Triglycerides, Plasma 103 <150 mg/dL 06/16/2025 5:02 AM EDT [facility] Comment: Triglyceride Reference Range (age >17 years): Desirable: <150 mg/dL Borderline high: 150 to 199 mg/dL High: 200 to 499 mg/dL Very high: >499 mg/dL Increased risk of pancreatitis: >1000 mg/dL Fasting greater than or equal to 12 hours? No 06/16/2025 5:02 AM EDT [facility] Blood Venous blood specimen / Unknown Venipuncture / Unknown 06/16/2025 4:24 AM EDT 06/16/2025 4:34 AM EDT us Raymond Katz APRN LAB BLOOD ORDERABLES Final Re sult Performing Organization Address [facility] Co de Phone Number [facility] [address] [place] [address] * Hemoglobin A1c (06/16/2025 4:24 AM EDT) Hemoglobin A1c 5.4 <5.7 % 06/16/2025 12:01 PM EDT [facility] Blood Venous blood specimen / Unknown Venipuncture / Unknown 06/16/2025 4:24 AM EDT 06/16/2025 4:31 AM EDT Narrative [facility] - 06/16/2025 12:01 PM EDT [facility] Interpretive Data: Diagnosis of Diabetes: Diabetic > or = 6.5% Pre-diabetic 5.7 to 6.4% Non-diabetic < or = 5.6% Glycemic Targets for Type I and Type II Diabetics: Non- Adults <7.0% Adults <6.0% Children and Adolescents <7.5% Source: [place] [employer]. Standards of medical care in diabetes,2017. Diabetes Care.2017:40 (suppl 1):S1-S135. us Lillian Carrera PA LAB BLOOD ORDERABLES Final Result Performing Organization Address [facility] Co de Phone Number [facility] [address] [place] [address] * Streptococcus pneumoniae and Legionella Urinary Antigen (06/15/2025 2:53 PM EDT) Legionella pneumophila serogroup 1 Antigen Result (Urine) Negative Negative 06/16/2025 6:33 AM EDT [facility] Streptococcus pneumoniae Antigen Result (Urine) Negative Negative 06/16/2025 6:33 AM EDT [facility] Urine Urine specimen obtained by clean catch procedure / Unknown Non-blood Collection / Unknown 06/15/2025 2:53 PM EDT 06/15/2025 3:17 PM EDT Corry Doss APRN, LUDMILA LAB MICROBIOLOGY - G ENERAL ORDERABLES Final Result [facility] [address] [place] [address] * Mycoplasma Pneumoniae DNA By PCR (06/15/2025 2:49 PM EDT) Mycoplasma pneumoniae Source aspirate 06/23/2025 9:22 PM EDT [facility] Mycoplasma pneumoniae by PCR Not Detected 06/23/2025 9:22 PM EDT [facility]) Aspirate Non-blood Collection / Unknown 06/15/2025 2:49 PM EDT 06/15/2025 3:34 PM EDT Narrative [facility] - 06/23/2025 9:22 PM EDT NOT DETECTED - A negative result does not rule out the presence of PCR inhibitors in the patient specimen or assay specific nucleic acid in concentrations below the level of detection by the assay. INTERPRETIVE INFORMATION: Mycoplasma pneumoniae by PCR This test was developed and its performance characteristics determined by [employer]. It has not been cleared or approved by the US Food and Drug Administration. This test was performed in a CLIA certified laboratory and is intended for clinical purposes. Performed By: [facility] [address] [place] [address] Stucco Worker: Sotero Banuelos MD, PhD CLIA Number: [id number] Corry Doss APRN, DNP LAB REF LAB BLOOD AN D FLUID ORD Final Result [facility]) [address] [place] [address] [place] [address] * Nasopharyngeal Respiratory Panel (06/15/2025 2:47 PM EDT) Pathologist [facility] Nasopharyngeal Respiratory PCR Interpretation Not Detected for all analytes Not Detected for all analytes 06/15/2025 5:19 PM EDT [facility] Swab Nasopharyngeal structure / Unknown Non-blood Collection / Unknown 06/15/2025 2:47 PM EDT 06/15/2025 3:18 PM EDT Narrative [facility] - 06/15/2025 5:19 PM EDT [...] Respiratory PCR Panel is performed using the [employer] ePlex instrument. This test is FDA approved for use with Nasopharyngeal swabs only. This test is used for clinical purposes. It should not be regarded as investigational or for research. The [facility] is certified under the Clinical Laboratory Improvement Amendments of 1988 (CLIA-88) as qualified to perform high complexity clinical laboratory testing. Corry Doss APRN, LUDMILA LAB MICROBIOLOGY - [facility] ORDERABLES Final Result [facility] [address] [place] [address] * (ABNORMAL) Mycoplasma Pneumoniae Antibody, IgG & IgM (06/15/2025 2:42 PM EDT) Pathologist [facility] Mycoplasma Pneumoniae Antibody IgM 0.11 <=0.76 U/L 06/19/2025 5:44 AM EDT [facility] Mycoplasma Pneumoniae Antibody IgG 0.20(H) <=0.09 U/L 06/19/2025 5:44 AM EDT [facility] ([facility]) Blood Arterial blood specimen / Unknown Arterial Puncture / Unknown 06/15/2025 2:42 PM EDT 06/15/2025 3:02 PM EDT Narrative [facility]) - 06/19/2025 5:44 AM EDT INTERPRETIVE INFORMATION: [...] more than 12 months post-infection. Performed By: [facility] [address] [place] [address] Stucco Worker: Sotero Banuelos MD, PhD CLIA Number: [id number] Corry Doss MIXING MACHINE ATTENDANT, DNP LAB BLOOD ORDERABLES Final Result [facility]) [address] [place] [address] * CT CRITICAL CARE, E/M 30-74 MINUTES [...] IN CLINIC/BEDSIDE OR DERABLES Final Result * CT CRITICAL CARE, E/M 30-74 MINUTES [...] Culture Heavy Growth 06/17/2025 11:03 AM EDT [facility] Culture Mixed upper respiratory kelsi(A) 06/17/2025 11:03 AM EDT [facility] Comment:The organism value f or this result has been updated. These results have been appended to the previously preliminary verified report. Gram Stain Result Fewer than 10 Epithelial cells/LPF(A) 06/17/2025 11:03 AM EDT [facility] Gram Stain Result Greater than 25 WBC/LPF(A) 06/17/2025 11:03 AM EDT [facility] Gram Stain Result Numerous Gram negative rods(A) 06/17/2025 11:03 AM EDT [facility] Gram Stain Result Numerous Gram positive cocci in pairs and chains(A) 06/17/2025 11:03 AM EDT [facility] Gram Stain Result Moderate Gram positive cocci in clusters(A) 06/17/2025 11:03 AM EDT [facility] Aspirate Specimen from endotracheal tube / Unknown Non-blood Collection / Unknown 06/14/2025 8:18 AM EDT 06/14/2025 10:27 AM EDT Corry Doss APRN, LUDMILA LAB MICROBIOLOGY - G ENERAL ORDERABLES Final Result [facility] [address] [place] [address] * XR Abdomen 1 View (06/14/2025 8:18 [...] MD on 06/14/2025 8:41 AM Corry Doss MIXING MACHINE ATTENDANT, DNP IMG XR PROCEDURES Fi nal Result * (ABNORMAL) Renal function panel (06/13/2025 3:35 PM EDT) Glucose, Plasma 148(H) 74 - 99 mg/dL 06/13/2025 4:23 PM EDT [facility] BUN, Plasma 31(H) 8 - 23 mg/dL 06/13/2025 4:23 PM EDT [facility] Creatinine, Plasma 2.02(H) 0.70 - 1.20 mg/dL 06/13/2025 4:23 PM EDT [facility] BUN/Creatinine Ratio 15 06/13/2025 4:23 PM EDT [facility] Sodium, Plasma 143 136 - 145 mmol/L 06/13/2025 4:23 PM EDT [facility] Potassium, Plasma 4.7 3.6 - 4.9 mmol/L 06/13/2025 4:23 PM EDT [facility] Chloride, Plasma 108(H) 97 - 107 mmol/L 06/13/2025 4:23 PM EDT [facility] CO2, Plasma 22 22 - 29 mmol/L 06/13/2025 4:23 PM EDT [facility] Anion Gap 13 6 - 16 mmol/L 06/13/2025 4:23 PM EDT [facility] Total Calcium, Plasma 8.2(L) 8.9 - 10.2 mg/dL 06/13/2025 4:23 PM EDT [facility] Phosphorus, Plasma 7.4(H) 2.5 - 4.5 mg/dL 06/13/2025 4:23 PM EDT [facility] Albumin, Plasma 2.6(L) 3.5 - 5.2 g/dL 06/13/2025 4:23 PM EDT [facility] eGFRcr 34.8 mL/min/1.7 3m*2 06/13/2025 4:23 PM EDT [facility] Comment:Reported eGFRcr in m L/min/1.73m2 is based the CKD-EPI 2020 equation that does not use a race coefficient. Blood Venous blood specimen / Unknown Venipuncture / Unknown 06/13/2025 3:35 PM EDT 06/13/2025 3:51 PM EDT Roshan Haas APRN, DNP LAB BLOOD ORDERABLES Fi nal Result [facility] [address] [place] [address] * CT CRITICAL CARE, ADDL 30 MIN (06/13/2025 10:48 AM EDT) Narrative oRshan Haas APRN, DNP - 06/13/2025 10:48 AM [...] Detected Not Detected 06/13/2025 11:46 AM EDT [facility] Swab (Axilla and Groin) Non-blood Collection / Unknown 06/12/2025 10:48 PM EDT 06/12/2025 11:08 PM EDT Narrative [facility] - 06/13/2025 11:46 AM EDT This PCR assay was developed and its performance characteristics determined by [facility] as appropriate for clinical purposes. This assay has not been cleared or approved by the FDA, but is performed in a CLIA regulated laboratory that is qualified to perform high-complexity testing. Dyllan Paul MD LAB MICROBIOLOGY - GENERAL OR DERABLES Final Result [facility] [address] [place] [address] * CT CRITICAL CARE, ADDL 30 MIN, CT CRITICAL CARE, ADDL 30 MIN, CT CRITICAL CARE, ADDL 30 MIN (06/12/2025 10:22 PM EDT) Raymond Ramirez APRN - 06/12/2025 10:22 PM EDT Raymond [...] CARE IMAGING PLACEHOLDER (06/12/2025 9:25 PM EDT) Ulises Phillips MD - 06/12/2025 9:25 PM EDT Ulises [...] blood gas gem (06/12/2025 9:19 PM EDT) [facility] pH, Arterial 7.34 7.31 - 7.42 [facility]/12[facility]25 [facility] p[facility]2, Arterial 44 32 - 45 mm Hg 06/12/2025 9:20 PM [facility] pO2, Arterial 81 >70 mm Hg 06/12/2025 9:20 PM [facility] SO2, Arterial 98 94 - 98 % 06/12/2025 9:20 PM T [facility] Base Excess, Arterial -2.2(L) -2 - 3 mmol/L 06/12/2025 9:20 PM [facility] HCO3, Arterial 23.7 22 - 26 mmol/L 06/12/2025 9:20 PM [facility] Total Hemoglobin, Arterial, Whole Blood 12.2(L) 13.7 - 17.5 g/dL 06/12/2025 9:20 PM [facility] Hematocrit, Arterial 37.0(L) 40 - 51.0 % 06/12/2025 9:20 PM [facility] Sodium, Arterial 141 136 - 145 mmol/L 06/12/2025 9:20 PM [facility] Potassium, Arterial 3.4(L) 3.6 - 4.9 mmol/L 06/12/2025 9:20 PM [facility] Chloride, Whole Blood 112(H) 97 - 107 mmol/L 06/12/2025 9:20 PM [facility] Glucose, Arterial 129(H) 74 - 99 mg/dL 06/12/2025 9:20 PM [facility] Ionized Calcium, Arterial 4.5(L) 4.6 - 5.1 mg/dL 06/12/2025 9:20 PM [facility] Lactate, Arterial 2.4(H) 0.5 - 1.6 mmol/L 06/12/2025 9:20 PM [facility] Body Temperature 37.0 Celsius 06/12/2025 9:20 PM [facility] pH, Temp Corrected, Arterial 7.34 7.31 - 7.42 06/12/2025 9:20 PM [facility] pCO2, Temp Corrected, Arterial 44 32 - 45 mm Hg 06/12/2025 9:20 PM EDT [facility] pO2, Temp Corrected, Arterial 81 >70 mm Hg 06/12/2025 9:20 PM EDT [facility] Aviation Safety Equipment Technician ID Dyllan Wong 06/12/2025 9:20 PM EDT [facility] Blood, Arterial Whole blood specimen / Unknown 06/12/2025 9:19 PM EDT 06/12/2025 9:20 PM EDT us Dyllan Paul MD LAB POINT OF CARE TE ST DOCKED DEVICE UNSOLICITED RESULTS Final Result [facility] [address] [place] [address] * Transfuse RBC (06/12/2025 7:16 PM EDT) [...] Units (06/12/2025 6:49 PM EDT) Product Code [id number] BLOO D BANK Dispense Status Returned BLOOD BANK Blood Expiration Date [id number] BLOOD BANK Unit Number [id number] CH B LOOD BANK Product Blood Type 5100 BLOOD BANK Blood Type O+ CH BLOOD BANK Crossmatch Compatible BLOOD BANK Product Code [id number] BLOO D BANK Dispense Status Returned BLOOD BANK Blood Expiration Date [id number] BLOOD BANK Unit Number [id number] CH B LOOD BANK Product Blood Type 5100 BLOOD BANK Blood Type O+ BLOOD BANK Crossmatch Compatible CH BLOOD BANK Product Code [id number] CH BLOO D BANK Dispense Status Transfused CH BLOOD BANK Blood Expiration Date CH BLOOD BANK Unit Number [id number] CH B LOOD BANK Product Blood Type 5100 CH BLOOD BANK Blood Type O+ CH BLOOD BANK Crossmatch Compatible CH BLOOD BANK Product Code [id number] CH BLOO D BANK Dispense Status Transfused CH BLOOD BANK Blood Expiration Date [id number] CH BLOOD BANK Unit Number [id number] CH B LOOD BANK Product Blood Type 5100 CH BLOOD BANK Blood Type O+ CH BLOOD BANK Crossmatch Compatible CH BLOOD BANK Other Afshin Reece MD BLOOD BANK PRODUCT ORDERABLES Edited Result - Final BLOOD BANK [address] [place] [address], * Surgical Pathology Exam (06/12/2025 6:07 PM EDT) Case Report Surgical Pathology Case: [id number] Authorizing Provider: Dyllan Paul MD Collected: 06/12/2025 1807 Ordering Location: [facility] A OPERATING ROOM Received: 06/13/2025 0811 Pathologist: Aliza Daugherty MD Specimens: A) - Other (specify site), Prostate and seminal vesicles - fresh for permanent B) - Other (specify site), Bilateral pelvic lymph nodes - permanent 06/19/2025 10:43 AM EDT [facility] Final Diagnosis A. PROSTATE AND [...] LYMPH NODES (0/8). 06/19/2025 10:43 AM EDT [facility] at 1043 EDT Synoptic Checklist [...] (usual) Histologic Grade: Grade: Grade group 3 (Normal Score 4 + 3 = 7) Minor [...] Acute and chronic 06/19/2025 10:43 AM EDT [facility] Clinical Information PROSTATE CANCER 06/19/2025 10:43 AM EDT [facility] Gross Description A. PROSTATE AND SEMINAL VESICLES - FRESH FOR PERMANENT Specimen label: Prostate and seminal vesicles Specimen fixation: Formalin Specimen type: Radical Prostatectomy Specimen Weight: 75 grams Specimen Size: The prostate measures 5.0 cm upry-sq-xhse, 5.1 cm ykcsrghn-ka-zwafqk ior, and 7.3 cm rfkb-hj-sssuz. The left seminal vesicle measures 1.5 x [...] cassettes. The prostate is serially sectioned from pwyy-eg-vfdl into 9, 5mm slices. Serial sections reveal [...] Cold Time: <1m 06/19/2025 10:43 AM EDT [facility] Note: A resident was involved in the service. I attest I examined the relevant preparations for the specimens and confirmed the diagnosis or interpretation. 06/19/2025 10:43 AM EDT [facility] Tissue Topography unknown / Unknown 06/12/2025 6:07 PM EDT 06/13/2025 8:11 AM EDT Comment:Pre-op diagnosis: PROSTATE CANCER Lymph node tissue specimen (specimen) Topography unknown / Unknown 06/12/2025 6:08 PM EDT 06/13/2025 8:11 AM EDT Comment:Pre-op diagnosis: PROSTATE CANCER us Dyllan Paul MD LAB PATHOLOGY ORDERABLES Francia l Result [facility] [address] [place] [address] * Peripheral IV (06/12/2025 3:17 PM EDT) Narrative Reyna Houston MD - 06/12/2025 3:17 PM EDT Reyna Houston MD 06/12/2025 4:40 PM Peripheral IV Placement Needle size: 18 G Location: arm Site prep: alcohol Technique: anatomical landmarks us Reyna Houston MD ANESTHESIA ORDERABLES Final R esult * CT AN ELECTIVE ENDOTRACHEAL AIRWAY, PB ANESTHESIA PLACEHOLDER [...] (+) ETCO2, Atraumatic, No change to dentition. 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 [place] [address] Advance Directives Documents on File Type Date Recorded Patient Customs Compliance Analyst Expl anation Advance Directives and Living Will 06/12/2025 * Full Code (Latest Code Status on File) Date Activated Date Inactivated Comments 07/26/2025 4:48 AM 07/31/2025 3:45 PM Question Answer Comments I have reviewed the capacity from the link above and, if needed, have updated to appropriate status: Yes * Full Code Date Activated Date Inactivated Comments 06/29/2025 5:19 [...] updated to appropriate status: Yes Care Teams Rig Welder Relationship Specialty Start Date End Date Murray Prajapati MD [address] [facility] [address] [place] [address] PCP - General 03/06/23 Jaja Camara APRN [address] [facility] [address] [place] [address] Referring Physician Gastroenterology 03/06/23 Dyllan Paul MD [address] [facility] [address] [place] [address] Surgeon Urology 04/29/25 Wendy Card LPN VALUE-BASED TRANSFORMATION PROGRAM TCM Nurse 07/07/25
--- OUTSIDE RECORDS SUMMARY | 2025-08-06 12:28 | XMS_ITS | Encounter Summary ---
Author Organization [facility] Address [address] [place] [address] Care Team Providers Care Seamless Tube Mill Operator Name Role Phone Murray Prajapati MD Primary Care Provider [phone] Jaja Camara CONSTRUCTION EQUIPMENT OPERATOR Unavailable [phone] Dyllan Paul MD Unavailable [phone] Encounter Details Date Type Department Care Team [...] in a long-term (including now)? No 06/16/2025 CAGE ASSESSMENT Answer [...] drink first t rafy in the morning (EYE-AUTOMATION DRIVER) to steady your nerves or to get [...] Description 08/22/2025 9:00 AM EDT Office Visit [facility]ph[facility], [facility] Min[facility] Metabolism [address] [facility], [address] [place] [address] Kathia Watkins MD [address] [facility] [address] [address] [place] [address] 08/28/2025 8:50 AM EDT Hospital Encounter [facility] [address] [place] [address] Dyllan Paul MD [address] [place] [address] 08/28/2025 8:50 AM EDT Anesthesia Event [facility] [address] [place] [id number] Paige Starkey, CONSTRUCTION EQUIPMENT OPERATOR [address] [place] [address] 08/28/2025 8:50 AM EDT - 08/28/2025 10:35 AM EDT Surgery [facility] [address] [place] [address] Dyllan Paul MD [address] [place] [address] URETEROSCOPY, WITH LASER LITHOTRIPSY [[id number] (CPT )] 10/28/2025 8:00 AM EST Office Visit [facility] [address] [place] [address] Pavan Aldrich MD [address] [place] [address] Scheduled Procedures Name Priority Associated [...] documented as of this encounter Care Teams Seamless Tube Mill Operator Relationship Specialty Start Date End Date Murray Prajapati MD [id number] [place] [address] PCP - General 03/06/23 Jaja Camara APRN [address] [facility] [address] [place] [address] Referring Physician Gastroenterology 03/06/23 Dyllan Paul MD [address] [place] [id number] Surgeon Urology 04/29/25 documented as of this encounter
--- OUTSIDE RECORDS SUMMARY | 2025-08-06 12:29 | XMS_ITS | Encounter Summary ---
Author Organization Healthcare Address [address] [facility] [place] [address] Care Team Providers Care Computer Builder Name Role Phone Murray Prajapati MD Primary Care Provider [phone] Jaja Camara DEFLECTOR OPERATOR Unavailable [phone] Dyllan Paul MD Unavailable [phone] Wendy Card LEHR OPERATOR Unavailable Unavaila ble Encounter Details Date Type Department Care Team (Late st Contact Info) Description 07/09/2025 Telephone [facility] [address] [place] [address] Dyllan Paul MD [address] [place] [address] Social History Tobacco Use Types [...] any time in the past [address] [facility], were you homeless or living in a snf (including now)? No 06/16/2025 CAGE ASSESSMENT Answer [...] drink first t rafy in the morning (EYE-AZURE PRINCIPAL SOLUTION SPECIALIST) to steady your nerves or to get rid of a hangover? 0 06/28/2025 CAGE Questionnaire Score 0 025 Utilities Answer Date Recorded In the past 12 months has th e [employer], gas, oil, or water [employer] threatened to shut off services in [...] optimal time of day to reach caller: [phone] Note: Please do not reply to this message. Follow-up communication and further actions as a result of this message need to be communicated with the patient directly, if the patient is not active onMyChart. If the patient is active on MyChart, they will receive notification of the communication/outcome via [employer]. documented in this encounter Plan of Treatment Upcoming Encounters Date Type Department Care Team (Latest Contact Info) Description 08/22/2025 9:00 AM EDT Office Visit [facility] Nephrology, Bone & Mineral Metabolism [address] [facility], [address] [place] [address] Kathia Watkins MD [address] [facility] [address] [place] [address] 08/28/2025 8:50 AM EDT Hospital Encounter [facility] A OPERATING ROOM [address] [place] [address] Dyllan Paul MD [address] [address] 08/28/2025 8:50 AM EDT Anesthesia Event [facility] A OPERATING ROOM [address] [place] [address] Paige Starkey, TORREY [address] [place] [address] 08/28/2025 8:50 AM EDT - 08/28/2025 10:35 AM EDT Surgery [facility] A OPERATING ROOM [address] [place] [address] Dyllan Paul MD [address] [facility] [address] [place] [address] URETEROSCOPY, WITH LASER LITHOTRIPSY [[id number] (CPT )] 10/28/2025 8:00 AM EST [facility] [address], 2nd [place] [address] Pavan Aldrich MD [address] [place] [address] Scheduled Procedures Name Priority Associated [...] as of this encounter Care Teams Computer Builder Relationship Specialty Start Date End Date Murray Prajapati MD [address] [facility] [address] [place] [address] PCP - General 03/06/23 Jaja Camara APRN [address] [facility] [address] [place] [address] Referring Physician Gastroenterology 03/06/23 Dyllan Paul MD [address] [facility] [address] [place] [address] Surgeon Urology 04/29/25 Wendy Card LPN VALUE-BASED TRANSFORMATION PROGRAM TCM Nurse 07/07/25 documented as of this encounter
--- OUTSIDE RECORDS SUMMARY | 2025-08-06 12:29 | XMS_ITS | Encounter Summary ---
Author Organization [facility] Address [address] [place] [address] Care Team Providers Care Baler Operator Name Role Phone Murray Prajapati MD Primary Care Provider [phone] Jaja Camara CRIB TENDER Unavailable [phone] Dyllan Paul MD Unavailable [phone] Marlin Martinez RN Unavailable Unavailable Reason for Visit * Reason Comments Link Encounter Details Date Type Department Care Team (Late st Contact Info) Description 06/30/2025 Patient Outreach POPULATION HEALTH [address], [address] [place] [address] Marlin Martinez, RN HOSPITAL CDU- [...] any time in the past 12 m [facility], were you homeless or living in a care home (including now)? No 06/16/2025 CAGE ASSESSMENT [...] drink first t rafy in the morning (EYE-MANAGER EPIC) to steady your nerves or to get [...] Description 08/22/2025 9:00 AM EDT Office Visit [facility] Nephrology, Bone & Mineral Metabolism [address] [facility], [address] [place] [address] Kathia Watkins MD [address] [facility] [address] [place] [address] 08/28/2025 8:50 AM EDT Hospital Encounter [facility] A OPERATING ROOM [address] [place] [address] Dyllan Paul MD [address] [facility] [address] [place] [address] 08/28/2025 8:50 AM EDT Anesthesia Event [facility] A OPERATING ROOM [address] [place] [address] Paige Starkey APRN [address] [place] [address] 08/28/2025 8:50 AM EDT - 08/28/2025 10:35 AM EDT Surgery [facility] A OPERATING ROOM [address] [place] [address] Dyllan Paul MD [address] [place] [address] URETEROSCOPY, WITH LASER LITHOTRIPSY [[id number] (CPT )] 10/28/2025 8:00 AM EST [facility] [address] [place] [address] Pavan Aldrich MD [address] [place] [address] Scheduled Procedures Name Priority Associated [...] documented as of this encounter Care Teams Baler Operator Relationship Specialty Start Date End Date Murray Prajapati MD [address] [place] [id number] PCP - General 03/06/23 Jaja Camara APRN [address] [place] [address] [place] [address] Referring Physician Gastroenterology 03/06/23 Dyllan Paul MD [address] [facility] [address] [place] [address] Surgeon Urology 04/29/25 Marlin Martinez, RN HOSPITAL CDU- OBSERVATION UNIT Registered Nurse 06/30/25 06/30/25 documented as of this encounter
--- OUTSIDE RECORDS SUMMARY | 2025-08-06 12:29 | XMS_ITS | Encounter Summary ---
Author Organization [facility] Address [address] [place] [address] Care Team Providers Care Registered Safety Engineer Name Role Phone Murray Prajapati MD Primary Care Provider [phone] Jaja Camara DENTAL APPLIANCE REPAIRER Unavailable [phone] Dyllan Paul MD Unavailable [phone] Encounter Details Date Type Department Care Team [...] any time in the past 12 m [facility], were you homeless or living in a [...] drink first t rafy in the morning (EYE-CUSTOMER ADVISOR) to steady your nerves or to get [...] No 025 8:00 PM EDT Denae Lowe, TIERA 2. Non-Specific Active Suici tyra Thoughts (Past 1 Month) No 06/29/2025 8:00 PM EDT Denae Lowe RN 6. Suicidal Behavior (Lifetime) No 8:00 PM EDT Denae Lowe RN documented as of this encounter Plan of Treatment Upcoming Encounters Date Type Department Care Team (Latest Contact Info) Description 08/22/2025 9:00 AM EDT Office Visit [facility] Nephrology, Bone & Mineral Metabolism [address] [facility], [address] [place] [address] Kathia Watkins MD [address] [facility] [address] [place] [address] 08/28/2025 8:50 AM EDT Hospital Encounter [facility] A OPERATING ROOM [address] [place] [address] Dyllan Paul MD [address] [place] [address] 08/28/2025 8:50 AM EDT Anesthesia Event [facility] A OPERATING ROOM [address] [place] [address] Paige Starkey, TORREY [address] [place] [address] 08/28/2025 8:50 AM EDT - 08/28/2025 10:35 AM EDT Surgery [facility] A OPERATING ROOM [address] [place] [address] Dyllan Paul MD [address] [place] [address] URETEROSCOPY, WITH LASER LITHOTRIPSY [[id number] (CPT )] 10/28/2025 8:00 AM EST Office Visit [facility] [address] 2nd [place] [address] Pavan Aldrich MD [address] [place] [address] Scheduled Procedures Name Priority Associated [...] documented as of this encounter Care Teams Registered Safety Engineer Relationship Specialty Start Date End Date Murray Prajapati MD [address] [place] [address] PCP - General 03/06/23 Jaja Camara APRN [address] [facility] [address] [place] [address] Referring Physician Gastroenterology 03/06/23 Dyllan Paul MD [address] [place] [address] Surgeon Urology 04/29/25 documented as of this encounter
--- OUTSIDE RECORDS SUMMARY | 2025-08-06 12:29 | XMS_ITS | Encounter Summary ---
Author Organization [facility] Address [address] [place] [address] Care Team Providers Care Manager Of Recruiting Name Role Phone Murray Prajapati MD Primary Care Provider [phone] Jaja Camara REFRIGERATOR ROOM CLERK Unavailable [phone] Dyllan Paul MD Unavailable [phone] Wendy Card COMMUNITY SUPPORT ASSOCIATE Unavailable Unavaila ble Reason for Visit * Reason Onset Date Comments HCN Clinical Concern/Question 07/18/2025 Encounter Details Date Type Department Care Team (Late st Contact Info) Description 07/18/2025 Telephone [facility] [facility] [address] [place] [address] Dyllan Paul MD [address] [place] [address] HCN Clinical Concern/Question Social History [...] drink first t rafy in the morning (EYE-POLICE MANAGER) to steady your nerves or to get [...] 07/18/2025 8:51 AM EDT I contacted Eber Lowe by phone at [phone]. Patient has had some blood in his [...] sent a picture of his incision via [employer] on 07/16/25. It is located under the [...] optimal time of day to reach caller: [phone] Note: Please do not reply to this message. Follow-up communication and further actions as a result of this message need to be communicated with the patient directly, if the patient is not active onMyChart. If the patient is active on MyChart, they will receive notification of the communication/outcome via [employer]. documented in this encounter Plan of Treatment Upcoming Encounters Date Type Department Care Team (Latest Contact Info) Description 08/22/2025 9:00 AM EDT Office Visit [facility] Nephrology, Bone & Mineral Metabolism [address] [facility], [address] [place] [address] Kathia Watkins MD [address] [place] [address] 08/28/2025 8:50 AM EDT Hospital Encounter [facility]AV A OPERATING ROOM [address] [place] [address] Dyllan Paul MD [address] [facility] [address] [place] [address] 08/28/2025 8:50 AM EDT Anesthesia Event [facility] A OPERATING ROOM [address] [place] [address] Paige Starkey, TORREY [address] [place] [address] 08/28/2025 8:50 AM EDT - 08/28/2025 10:35 AM EDT Surgery PAV A OPERATING ROOM [address] [place] [address] Dyllan Paul MD [address] [facility] [address] [place] [address] URETEROSCOPY, WITH LASER LITHOTRIPSY [[id number] (CPT )] 10/28/2025 8:00 AM EST Office Visit [place] [facility] [address] 2[address] [place] [address] Pavan Aldrich MD [address] [place] [address] Scheduled Procedures Name Priority Associated [...] as of this encounter Care Teams Manager Of Recruiting Relationship Specialty Start Date End Date Murray Prajapati MD [address] [facility] [address] [place] [id number] PCP - General 03/06/23 Jaja Camara APRN [address] [place] [address] Referring Physician Gastroenterology 03/06/23 Dyllan Paul MD [address] [facility] [address] [place] [address] Surgeon Urology 04/29/25 Wendy Card LPN VALUE-BASED TRANSFORMATION PROGRAM TCM Nurse 07/07/25 documented as of this encounter
--- OUTSIDE RECORDS SUMMARY | 2025-08-06 12:29 | XMS_ITS | Encounter Summary ---
Author Organization [facility] Address [address] [place] [address] Care Team Providers Care Mechanic Sound Technician Name Role Phone Murray Prajapati MD Primary Care Provider [phone] Jaja Camara PATTERN GATER Unavailable [phone] Dyllan Paul MD Unavailable [phone] Wendy Card LPN Unavailable Unavaila ble Reason for Visit * Reason Comments TCM Encounter Details Date Type Department Care Team (Late st Contact Info) Description 07/07/2025 Patient Outreach POPULATION HEALTH [address] [place] [address] Wendy Card LPN VALUE-BASED TRANSFORMATION [...] any time in the past 12 m [facility], were you homeless or living [...] drink first t rafy in the morning (EYE-FINISHER COLD ROLLING) to steady your nerves or to get [...] to bilateral lower extremities swelling. Action: Sent [email or web address] secure chat to provider for clarification on [...] [facility], [address] [place] [address] Kathia Watkins MD [address] [place] [address] 08/28/2025 8:50 AM EDT Hospital Encounter PAV A OPERATING ROOM [address] [place] [address] Dyllan Paul MD [address] [facility] [address] [place] [address] 08/28/2025 8:50 AM EDT Anesthesia Event [facility]AV A OPERATING ROOM [address] [place] [address] Paige Starkey APRN [address] [place] [address] 08/28/2025 8:50 AM EDT - 08/28/2025 10:35 AM EDT Surgery PAV A OPERATING ROOM [address] [place] [address] Dyllan Paul MD [address] [facility] [place] [address] URETEROSCOPY, WITH LASER LITHOTRIPSY [[id number] (CPT )] 10/28/2025 8:00 AM EST Office Visit [place] [facility] [address] 2[address] [place] [address] Pavan Aldrich MD [address] [facility] [address] [place] [address] Scheduled Procedures Name Priority Associated [...] documented as of this encounter Care Teams Mechanic Sound Technician Relationship Specialty Start Date End Date Murray Prajapati MD [address] [place] [address] PCP - General 03/06/23 Jaja Camara APRN [address] [facility] [address] [place] [address] Referring Physician Gastroenterology 03/06/23 Dyllan Paul MD [id number] [place] [address] Surgeon Urology 04/29/25 Wendy Card LPN VALUE-BASED TRANSFORMATION PROGRAM TCM Nurse 07/07/25 documented as of this encounter
--- OUTSIDE RECORDS SUMMARY | 2025-08-06 12:29 | XMS_ITS | Encounter Summary ---
Author Organization [facility] Address [address] [place] [address] Care Team Providers Care Cup Machine Operator Name Role Phone Murray Prajapati MD Primary Care Provider [phone] Jaja Camara DETENTION WORKER Unavailable [phone] Dyllan Paul MD Unavailable [phone] Encounter Details Date Type Department Care Team [...] time in the past 12 m [facility], were you homeless or living [...] drink first t rafy in the morning (EYE-DRILL DOCTOR) to steady your nerves or to [...] 08/22/2025 9:00 AM EDT Office Visit [facility] Nephrology, Bone & Mineral Metabolism [address] [facility], [address] [place] [address] Kathia Watkins MD [address] [facility] [address] [place] [address] 08/28/2025 8:50 AM EDT Hospital Encounter PAV A OPERATING ROOM [address] [place] [address] Dyllan Paul MD [address] [address] 08/28/2025 8:50 AM EDT Anesthesia Event PAV A OPERATING ROOM [address] [place] [address] Paige Starkey, TORREY [address] [place] [address] 08/28/2025 8:50 AM EDT - 08/28/2025 10:35 AM EDT Surgery PAV A OPERATING ROOM [address] [place] [address] Dyllan Paul MD [address] [facility] [address] [place] [address] URETEROSCOPY, WITH LASER LITHOTRIPSY [[id number] (CPT )] 10/28/2025 8:00 AM EST Office Visit [place] [facility] [address], 2[address] [place] [address] Pavan Aldrich MD [address] [place] [address] Scheduled Procedures Name Priority Associated [...] documented as of this encounter Care Teams Cup Machine Operator Relationship Specialty Start Date End Date Murray Prajapati MD [address] [facility] [address] [place], [place] [id number] PCP - General 03/06/23 Jaja Camara APRN [address] [facility] [address] [place] [address] Referring Physician Gastroenterology 03/06/23 Dyllan Paul MD [id number] [place] [address] Surgeon Urology 04/29/25 documented as of this encounter
--- OUTSIDE RECORDS SUMMARY | 2025-08-06 12:30 | XMS_ITS | Referral Summary ---
Author Organization [facility] ([place], [place], [place], [place]) Address [address] [place] [address] Care Team Providers Care Wage And Hour Investigator Name Role Phone Murray Prajapati MD Primary Care Provider [phone] Allergies No known active allergies Medications tamsulosin [...] drink = 0.6 oz pur e alcohol) Food Insecurity Answer Date Recorded Food run [...] Date Jack rded Speak language other than Malaysian at home Not on file 12/08/2023 Want help with school or training Not on file 12/08/2023 Substance Use Answer Date Recorded Used [...] of Treatment [place] [address] BLUE CROSS/BLUE SHIELD MEDICARE PART A ONLY Care Teams Wage And Hour Investigator Relationship Specialty Start Date End Date Murray Prajapati MD [address] [facility] [address] [place] [id number] PCP - General General Internal Medicine 01/05/23
--- OUTSIDE RECORDS SUMMARY | 2025-08-06 12:30 | XMS_ITS | Encounter Summary ---
Author Organization [facility] Address [address] [place] [address] Care Team Providers Care Account Development Representative Name Role Phone Murray Prajapati MD Primary Care Provider [phone] Jaja Camara NUCLEAR TECHNOLOGIST Unavailable [phone] Dyllan Paul MD Unavailable [phone] Wendy Card ARMATURE BALANCER Unavailable Unavaila ble Encounter Details Date Type Department Care Team (Latest Contact Info) Description 07/27/2025 Travel Social History Tobacco Use Types Packs/Day [...] any time in the past 12 m [facility], were you homeless or living in a long term (including now)? No 07/28/2025 [facility] Utilities Answer Date Recorded In the [...] drink first t rafy in the morning (EYE-NUT CHOPPER) to steady your nerves or to get [...] Assessment Author No Risk Indicated 07/27/2025 8:00 PM EDT Liat Gerber RN * Question Answer Date of Assessment Author 1. Wish to be (Past 1 Month) No 025 8:00 PM EDT Liat Gerber RN 2. Non-Specific Active Suici tyra Thoughts (Past 1 Month) No 07/27/2025 8:00 PM EDT Charla Gerber RN 6. Suicidal Behavior (Lifetime) No 8:00 PM EDT Liat Gerber RN documented as of this encounter Plan of Treatment Upcoming Encounters Date Type Department Care Team (Latest Contact Info) Description 08/22/2025 9:00 AM EDT Office Visit [facility] Nephrology, Bone & Mineral Metabolism [address] [facility], [address] [place] [address] Kathia Watkins MD [address] [facility] [address] [place] [address] 08/28/2025 8:50 AM EDT Hospital Encounter PAV A OPERATING ROOM [address] [place] [address] Dyllan Paul MD [address] [place] [address] 08/28/2025 8:50 AM EDT Anesthesia Event PAV A OPERATING ROOM [address] [place] [address] Paige Starkey, TORREY [address] [place] [address] 08/28/2025 8:50 AM EDT - 08/28/2025 10:35 AM EDT Surgery PAV A OPERATING ROOM [address] [place] [address] Dyllan Paul MD [address] [place] [address] URETEROSCOPY, WITH LASER LITHOTRIPSY [[id number] (CPT )] 10/28/2025 8:00 AM EST Office Visit [place] [facility] [address], [address] [place] [address] Pavan Aldrich MD [address] [place] [address] Scheduled Procedures Name Priority Associated [...] documented as of this encounter Care Teams Account Development Representative Relationship Specialty Start Date End Date Murray Prajapati MD [address] [facility] [address] [place] [address] PCP - General 03/06/23 Jaja Camara APRN 1210 [facility] [address] [place] [address] Referring Physician Gastroenterology 03/06/23 Dyllan Paul MD [address] [facility] [address] [place] [address] Surgeon Urology 04/29/25 Wendy Card LPN VALUE-BASED TRANSFORMATION PROGRAM TCM Nurse 07/07/25 documented as of this encounter
--- OUTSIDE RECORDS SUMMARY | 2025-08-06 12:30 | XMS_ITS | Encounter Summary ---
Author Organization [facility] Address [address] [place] [address] Care Team Providers Care Court Of Appeals Judge Name Role Phone Murray Prajapati MD Primary Care Provider [phone] Jaja Camara CERTIFIED MIDWIFE Unavailable [phone] Dyllan Paul MD Unavailable [phone] Wendy Card LPN Unavailable Unavaila ble Reason for Visit * Reason Comments TCM Encounter Details Date Type Department Care Team (Late st Contact Info) Description 08/04/2025 Patient Outreach POPULATION HEALTH [address], [address] [place] [address] Wendy Card LPN VALUE-BASED TRANSFORMATION [...] any time in the past 12 m [facility], were you homeless or living in a fpc (including now)? No 07/28/2025 [facility] Utilities Answer Date Recorded In the [...] drink first t rafy in the morning (EYE-ASSEMBLER METAL BUILDING) to steady your nerves or to get [...] Progress Notes - Wendy Card LPN - 08/04/2025 10:39 AM EDT Admit Date: 07/26/2025 Discharge Date: 07/31/2025 Hospital Service: Hospital Medicine Discharge Diagnosis: LALITA (acute kidney injury) ([facility]) 08/04/2025 TCM call # 1 Patient Reached: Yes Outcome: Spoke with patient for TCM nurse call. Patient states he is seeing PCP tomorrow. Patient is concerns about the area from surgery a month ago still leaking fluid. Patient states hospital put liquid bandage over the area before discharge. Patient reports now the area is puffy and believes fluid is filling up in it. Action: N/A Medication changes: Stop: carvedilol 3.125 MG tablet (Coreg) furosemide 40 MG tablet (Lasix) methocarbamol 750 MG tablet (Robaxin) tamsulosin 0.4 MG 24 hr capsule (Flomax) Start: Ferrous Gluconate 324 mg Oral Daily Melatonin 6 mg Oral Nightly Midodrine HCl 10 mg Oral 3 times daily Ondansetron 4 mg Oral Every 6 hours PRN rifAXIMin 550 mg Oral 2 times daily [facility] appointment: per patient 08/05/25. Items to address at [facility]: Monitor labs documented in this encounter Plan of Treatment Upcoming Encounters Date Type Department Care Team (Latest Contact Info) Description 08/22/2025 9:00 AM EDT Office Visit [facility] Nephrology, Bone & Mineral Metabolism [address], [address] [place] [address] Kathia Watkins MD [address] [place] [address] 08/28/2025 8:50 AM EDT Hospital Encounter [facility] [address] [place] [address] Dyllan Paul MD [address] [facility] [address] [place] [address] 08/28/2025 8:50 AM EDT Anesthesia Event [facility] [address] [place] [address] Paige Starkey, CERTIFIED MIDWIFE [address] [place] [address] 08/28/2025 8:50 AM EDT - 08/28/2025 10:35 AM EDT Surgery [facility] [address] [place] [address] Dyllan Paul MD [address] [facility] [place] [address] URETEROSCOPY, WITH LASER LITHOTRIPSY [33040 (CPT )] 10/28/2025 8:00 AM EST [facility] [address], 2nd [place] [address] Pavan Aldrich MD [address] [place] [address] Scheduled Procedures Name Priority Associated [...] documented as of this encounter Care Teams Court Of Appeals Judge Relationship Specialty Start Date End Date Murray Prajapati MD [address] [place] [address] PCP - General 03/06/23 Jaja Camara APRN [address] [place] [address] Referring Physician Gastroenterology 03/06/23 Dyllan Paul MD [id number] [place] [address] Surgeon Urology 04/29/25 Wendy Card LPN VALUE-BASED TRANSFORMATION PROGRAM TCM Nurse 07/07/25 documented as of this encounter
--- OUTSIDE RECORDS SUMMARY | 2025-08-06 12:30 | XMS_ITS | Encounter Summary ---
Author Organization Healthcare Address [address] [place] [address] Care Team Providers Care Alarm Signal Operator Name Role Phone Murray Prajapati MD Primary Care Provider [phone] Jaja Caamra SENIOR SYSTEMS ENGINEER Unavailable [phone] Dyllan Paul MD Unavailable [phone] Wendy Card DIP PAINTER Unavailable Unavaila ble Encounter Details Date Type Department Care Team (Late st Contact Info) Description 07/25/2025 Orders Only External Location [address] [place] [address] Provider, External Social History Tobacco Use Types [...] any time in the past 12 m [facility], were you homeless or living in a care home (including now)? No 07/28/2025 [facility] Utilities Answer Date Recorded In [...] drink first t rafy in the morning (EYE-CORE WINDER) to steady your nerves or to get [...] Description 08/22/2025 9:00 AM EDT Office Visit [facility] Nephrology, Bone & Mineral Metabolism [address] [facility] [facility], [address] [place] [address] Kathia Watkins MD [address] [facility] [address] [place] [address] 08/28/2025 8:50 AM EDT Hospital Encounter [facility]PERATING RO[facility] [address] [place] [address] Dyllan Paul MD [address] [facility] [address] [place] [address] 08/28/2025 8:50 AM EDT Anesthesia Event [facility]PERATING RO[facility] [address] [place] [address] Paige Starkey, TORREY [address] [place] [address] 08/28/2025 8:50 AM EDT - 08/28/2025 10:35 AM EDT Surgery [facility] [address] [place] [address] Dyllan Paul MD [address] [place] [address] URETEROSCOPY, WITH LASER LITHOTRIPSY [[id number] (CPT )] 10/28/2025 8:00 AM EST [facility] [address], [address] [place] [address] Pavan Aldrich MD [address] [place] [address] Scheduled Procedures Name Priority Associated Diagnoses Date/Ti me URETEROSCOPY, WITH LASER LITHOTRIPSY Ureteral stone 08/28/2025 8:50 AM EDT documented as of this encounter Goals Goal Patient Goal Type Associated Problems Recent Progress Patient-Stated? Author Autogenerat ed Goal Care Plan Autogenerated Problem No Johnna Quiñones documented as of this encounter Procedures Procedure Name Priority Date/Time Associated Diagnosis Comments XR OUTSIDE IMAGES 07/25/2025 4:55 PM EDT documented in this encounter Results * XR OUTSIDE IMAGES (07/25/2025 4:55 PM [...] documented as of this encounter Care Teams Alarm Signal Operator Relationship Specialty Start Date End Date Murray Prajapati MD [address] [facility] [address] [place] [address] PCP - General 03/06/23 Jaja Camara APRN [address] [facility] [address] [place] [address] Referring Physician Gastroenterology 03/06/23 Dyllan Paul MD [address] [facility] [address] [place] [address] Surgeon Urology 04/29/25 Wendy Card LPN VALUE-BASED TRANSFORMATION PROGRAM TCM Nurse 07/07/25 documented as of this encounter
--- OUTSIDE RECORDS SUMMARY | 2025-08-06 12:30 | XMS_ITS | Encounter Summary ---
Author Organization [facility] Address [address] [place] [address] Care Team Providers Care Blueprinting Machine Operator Name Role Phone Murray Prajapati MD Primary Care Provider Jaja Camara LANG INTERPRETER Unavailable [phone] Dyllan Paul MD Unavailable [phone] Wendy Card INSTRUMENTATION AND CONTROLS TECHNICIAN Unavailable Unavaila ble Encounter Details Date Type Department Care Team (Latest Contact Info) Description 07/26/2025 Travel Social History Tobacco Use Types Packs/Day [...] any time in the past 12 m [facility], were you homeless or living in a [place] [facility] [place] facility (including now)? No 06/16/2025 CAGE ASSESSMENT Answer [...] drink first t rafy in the morning (EYE-CRINKLING MACHINE OPERATOR) to steady your nerves or to get rid of a hangover? 0 07/26/2025 CAGE Questionnaire Score 0 025 Utilities Answer Date Recorded In the past 12 months has th e [employer], gas, oil, or water company threatened to [...] Date of Assessment Author No Risk Indicated 07/26/2025 8:00 PM EDT Lorene Lowe, TIERA * Question Answer Date of Assessment Author 1. Wish to be (Past 1 Month) No 025 8:00 PM EDT Lorene Lowe, RN 2. Non-Specific Active Suici tyra Thoughts (Past 1 Month) No 07/26/2025 8:00 PM EDT Lorene Lowe, RN 6. Suicidal Behavior (Lifetime) No 8:00 PM EDT Lorene Lowe, TIERA documented as of this encounter Plan of Treatment Upcoming Encounters Date Type Department Care Team (Latest Contact Info) Description 08/22/2025 9:00 AM EDT Office Visit [facility] Nephrology, Bone & Mineral Metabolism [address] [facility], [address] [place] [address] Kathia Watkins MD [address] [facility] [address] [place] [address] 08/28/2025 8:50 AM EDT Hospital Encounter [facility] A OPERATING ROOM [address] [place] [address] Dyllan Paul MD [address] [place] [address] 08/28/2025 8:50 AM EDT Anesthesia Event [facility]PERATING RO[facility] [address] [place] [address] Paige Starkey, TORREY [address] [place] [address] 08/28/2025 8:50 AM EDT - 08/28/2025 10:35 AM EDT Surgery [facility]PERATING RO[facility] [address] [place] [address] Dyllan Paul MD [address] [place] [address] URETEROSCOPY, WITH LASER LITHOTRIPSY [[id number] (CPT )] 10/28/2025 8:00 AM EST [facility] [address] [place] [address] Pavan Aldrich MD [address] [place] [address] Scheduled Procedures Name Priority Associated [...] documented as of this encounter Care Teams Blueprinting Machine Operator Relationship Specialty Start Date End Date Murray Prajapati MD [address] [place] [address] PCP - General 03/06/23 Jaja Camara APRN [address] [facility] [address] [place] [address] Referring Physician Gastroenterology 03/06/23 Dyllan Paul MD [address] [place] [address] Surgeon Urology 04/29/25 Wendy Card LPN VALUE-BASED TRANSFORMATION PROGRAM TCM Nurse 07/07/25 documented as of this encounter
--- OUTSIDE RECORDS SUMMARY | 2025-08-06 12:30 | XMS_ITS | Encounter Summary ---
Author Organization [facility] Address [address] [place] [address] Care Team Providers Care Car Repairer Pullman Name Role Phone Murray Prajapati MD Primary Care Provider Reason for Visit * Auth/Cert Specialty Diagnoses / Procedures Referred By Silverio barone Referred To Contact Procedures ME LAPS SURG [id number] RPBIC RAD W/NRV SPARING ROBOT ME LAPS SURG BILATERAL TOTAL PELVIC LMPHADECTOMY ROBOTIC PROSTATECTOMY WITH NODES Referral ID Status Reason Start Date Expiration Date Visits Re quested Visits Authorized [id number] 1 1 Encounter Details Date Type Department Care Team (Late st Contact Info) Description 06/03/2025 Hospital Encounter [facility] OR [address] [place] [address] Jayme Pereyra Jr., MD [address] [facility] [address] [place] [address] Social History Tobacco Use Types Packs/Day Years [...] documented as of this encounter Care Teams Car Repairer Pullman Relationship Specialty Start Date End Date Murray Prajapati MD [facility] [address] [place] [address] PCP - General Internal Medicine 05/29/24 documented as of this encounter
--- OUTSIDE RECORDS SUMMARY | 2025-08-06 12:30 | XMS_ITS | Encounter Summary ---
Author Organization [facility] Address [address] [place] [address] Care Team Providers Care Dining Chair Seat Cushion Trimmer Name Role Phone Murray Prajapati MD Primary Care Provider [phone] Jaja Camara LINOTYPE MACHINIST Unavailable [phone] Dyllan Paul MD Unavailable [phone] Marlin Martinez RN Unavailable Unavailable Wendy Card BLINDMAKER Unavailable Unavaila ble Encounter Details Date Type Department Care Team (Late st Contact Info) Description 01/05/2023 Orders Only External Location [address] [place] [address] Provider, External Social History Tobacco Use Types [...] 08/22/2025 9:00 AM EDT Office Visit [facility] Nephrology, Bone & Mineral Metabolism [address] [facility], [address] [place] [address] Kathia Watkins MD [address] [facility] [address] [place] [address] 08/28/2025 8:50 AM EDT Hospital Encounter [facility] A OPERATING ROOM [address] [place] [address] Dyllan Paul MD [address] [facility] [address] [place] [address] 08/28/2025 8:50 AM EDT Anesthesia Event [facility] OPERATING ROOM [address] [place] [address] Paige Starkey, TORREY [address] [facility] [address] [place] [address] 08/28/2025 8:50 AM EDT - 08/28/2025 10:35 AM EDT Surgery [facility]PERATING RO[address] [place] [address] Dyllan Paul MD [address] [place] [address] URETEROSCOPY, WITH LASER LITHOTRIPSY [[id number] (CPT )] 10/28/2025 8:00 AM EST Office Visit [facility] [address] 2nd [place] [address] Pavan Aldrich MD [address] [facility] [address] [place] [address] Scheduled Procedures Name Priority Associated [...] documented as of this encounter Care Teams Dining Chair Seat Cushion Trimmer Relationship Specialty Start Date End Date Murray Prajapati MD [address] [place] [address] PCP - General 03/06/23 Jaja Camara APRN [address] [place] [address] [place] [address] Referring Physician Gastroenterology 03/06/23 Dyllan Paul MD [address] [place] [address] Surgeon Urology 04/29/25 Marlin Martinez, RN [facility] Registered Nurse 06/30/25 06/30/25 Wendy Card LPN VALUE-BASED TRANSFORMATION PROGRAM TCM Nurse 07/07/25 documented as of this encounter
--- OUTSIDE RECORDS SUMMARY | 2025-08-06 12:30 | XMS_ITS | Encounter Summary ---
Author Organization Healthcare Address [address] [place] [address] Care Team Providers Care Cutter And Edge Trimmer Name Role Phone Murray Prajapati MD Primary Care Provider [phone] Jaja Camara PLATE GLASS POLISHER Unavailable [phone] Dyllan Paul MD Unavailable [phone] Wendy Card AN/SQQ [id number] SONAR SYSTEM JOURNEYMAN Unavailable Unavaila ble Encounter Details Date Type Department Care Team (Late st Contact Info) Description 08/01/[address] [facility] Urology [address] [place] [address] Dyllan Paul MD [address] [place] [address] Social History Tobacco Use Types [...] any time in the past 12 m [facility], were you homeless or living in a longterm (including now)? No 07/28/2025 [facility] Utilities Answer Date Recorded In the past 12 months has e [employer], gas, oil, or water company threatened to [...] drink first t rafy in the morning (EYE-SHERIFF'S OFFICER) to steady your nerves or to get [...] encounter Miscellaneous Notes * Telephone Encounter - Ginny Fritz - 08/01/2025 3:54 PM EDT Received message from Dr. Knight to postpone patient's surgery with Dr. Paul due to recent hospitalization- called patient and rescheduled surgery - patient aware of directions and [facility] He also knows to expect a call from our preop anesthesia clinic the day prior to surgery with surgery and arrival time - address and phone number verified with patient documented in this encounter Plan of Treatment Upcoming Encounters Date Type Department Care Team (Latest Contact Info) Description 08/22/2025 9:00 AM EDT Office Visit [facility] Nephrology, Bone & Mineral Metabolism [address] [facility], [address] [place] [address] Kathia Watkins MD [address] [facility] [address] [place] [address] 08/28/2025 8:50 AM EDT Hospital Encounter [facility] A OPERATING ROOM [address] [place] [address] Dyllan Paul MD [address] [place] [address] 08/28/2025 8:50 AM EDT Anesthesia Event [facility] A [address]PERATING ROOM [address] [place] [address] Paige Starkey, PLATE GLASS POLISHER [address] [place] [address] 08/28/2025 8:50 AM EDT - 08/28/2025 10:35 AM EDT Surgery [facility] A OPERATING ROOM [address] [place] [address] Dyllan Paul MD [address] [place] [address] URETEROSCOPY, WITH LASER LITHOTRIPSY [16916 (CPT )] 10/28/2025 8:00 AM EST Office Visit [facility] Medicine Special[facility] [address] [place] [address] Pavan Aldrich MD [address] [place] [address] Scheduled Procedures Name Priority Associated Diagnoses Date/Ti [...] documented as of this encounter Care Teams Cutter And Edge Trimmer Relationship Specialty Start Date End Date Murray Prajapati MD [address] [facility] [address] [place], [place] [address] PCP - General 03/06/23 Jaja Camara APRN [address] [place] [address] [place] [address] Referring Physician Gastroenterology 03/06/23 Dyllan Paul MD [address] [place] [address] Surgeon Urology 04/29/25 Wendy Card LPN VALUE-BASED TRANSFORMATION PROGRAM TCM Nurse 07/07/25 documented as of this encounter
--- OUTSIDE RECORDS SUMMARY | 2025-08-06 12:30 | XMS_ITS | Clinical Summary ---
Author Organization [facility] ([place], [place], [place], [place]) Address [address] [place] [address] Care Team Providers Care Leather Tanner Name Role Phone Murray Prajapati MD Primary Care Provider [phone] Allergies No known active allergies Medications tamsulosin [...] Date Jack rded Speak language other than Rwandan at home Not on file 12/08/2023 Want [...] Shingles Vaccine (Zoster) (2 of 2) 12/24/20162015 Falls Risk Screening 11/20/2024 Tobacco Cessation Counseling and Screening (12+) 05/13/2025 05/13/2024 COVID-19 VACCINE ( - 2024- season) 2025 09/15/2021, 02/17/2021, 01/20/2021 Influenza Vaccine (#1) 2025 08/13/2020 Insurance BLUE CROSS/BLUE SHIELD MEDICARE PART A ONLY Care Teams Leather Tanner Relationship Specialty Start Date End Date Murray Prajapati MD [address] [place] [address] PCP - General General Internal Medicine 01/05/23
--- OUTSIDE RECORDS SUMMARY | 2025-08-06 12:30 | XMS_ITS | Encounter Summary ---
Author Organization [facility] Address [address] [place] [address] Care Team Providers Care Forest Patrolman Name Role Phone Murray Prajapati MD Primary Care Provider [phone] Jaja Camara CAFETERIA FOOD SERVER Unavailable [phone] Dyllan Paul MD Unavailable [phone] Marlin Martinez RN Unavailable Unavailable Wendy Card COIL SPRING ASSEMBLER Unavailable Unavaila ble Encounter Details Date Type Department Care Team (Late Contact Info) Description 10/26/2010 Orders Only External Location [address] [place] [address] Provider, External Social History Tobacco [...] [facility], [address] [place] [address] Kathia Watkins MD [address] [facility] [address] [place] [address] 08/28/2025 8:50 AM EDT Hospital Encounter PAV A OPERATING ROOM [address] [place] [address] Dyllan Paul MD [address] [facility] [address] [place] [address] 08/28/2025 8:50 AM EDT Anesthesia Event PAV A OPERATING ROOM [address] [place] [address] Paige Starkey, CAFETERIA FOOD SERVER [address] [facility] [address] [place] [address] 08/28/2025 8:50 AM EDT - 08/28/2025 10:35 AM EDT Surgery [address]PERATING RO[address] [place] [address] Dyllan Paul MD [address] [place] [address] URETEROSCOPY, WITH LASER LITHOTRIPSY [[id number] (CPT )] 10/28/2025 8:00 AM EST Office Visit [facility] [address] [place] [address] Pavan Aldrich MD [address] [facility] [address] [place] [address] Scheduled Procedures Name Priority [...] documented as of this encounter Care Teams Forest Patrolman Relationship Specialty Start Date End Date Murray Prajapati MD [address] [place] [id number] PCP - General 03/06/23 Jaja Camara APRN [address] [place] [address] [place] [id number] Referring Physician Gastroenterology 03/06/23 Dyllan Paul MD [address] [facility] [address] [place] [address] Surgeon Urology 04/29/25 Marlin Martinez, RN [facility] Registered Nurse 06/30/25 06/30/25 Wendy Card LPN VALUE-BASED TRANSFORMATION PROGRAM TCM Nurse 07/07/25 documented as of this encounter
--- OUTSIDE RECORDS SUMMARY | 2025-08-06 12:30 | XMS_ITS ---
Author Organization [facility] Address [address] [place] [address] Care Team Providers Care Stripper Shovel Operator Name Role Phone Murray Prajapati MD Primary Care Provider [phone] Jaja Camara FRAME REPAIRER Unavailable [phone] Dyllan Paul MD Unavailable [phone] Wendy Card CHOIR ACCOMPANIST Unavailable Unavaila ble Transplant Episode Liver Candidate [facility] ([place], [place]) - [place] Referred on 03/27/2025 Marked as Ineligible on 06/17/2025 Reason: Substance Abuse Liver CoordinatorCorrie Williamson RN Fax: N/A Email: N/A Scores Score Value Updated Expires Exceptions/Sachi sons CPRA Not available MELD (Calc) 17 07/31/2025 Care Team Name Role Phone Fax Email Corrie Williamson RN Liver Coordinator [phone] N/A N/A Janis Rice Accounts Receivable Manager [phone] N/A N/A Marco Joiner MD Surgeon [phone] N/A Events Pre-Transplant Referred: 03/27/2025 Committee: 03/31/2025
--- OUTSIDE RECORDS SUMMARY | 2025-08-06 12:30 | XMS_ITS ---
Author Organization [facility] Address [address] [place] [address] Care Team Providers Care Campus Recruiting Coordinator Name Role Phone Murray Prajapati MD Primary Care Provider [phone] Jaja Camara SKILLS INSTRUCTOR Unavailable [phone] Dyllan Paul MD Unavailable [phone] Wendy Card THREAT ANALYST Unavailable Unavaila ble Active Problems * This document contains information received from the source organization and may not represent a complete record from that organization. Problem Noted Date Diagnosed Date Ureteral stone [...] Assessment & Plan (06/18/2025 9:56 AM EDT): 9: Reports he is abstinent for 3-4months, then [...]
--- OUTSIDE RECORDS SUMMARY | 2025-08-06 12:30 | XMS_ITS | Encounter Summary ---
Author Organization [facility] Address [address] [place] [address] Care Team Providers Care Learning And Development Consultant Name Role Phone Murray Prajapati MD Primary Care Provider [phone] Jaja Camara SANITARIAN Unavailable [phone] Dyllan Paul MD Unavailable [phone] Wendy Card LPN Unavailable Unavaila ble Reason for Visit * Reason Comments TCM Encounter Details Date Type Department Care Team (Late st Contact Info) Description 08/04/2025 Patient Outreach POPULATION [facility] [address], [address] [place] [address] Wendy Card LPN VALUE-BASED TRANSFORMATION [...] any time in the past 12 m [facility], were you homeless or living in a alf (including now)? No 07/28/2025 [facility] Utilities Answer Date Recorded In the [...] first t rafy in the morning (EYE-RADIO MECHANIC APPRENTICE) to steady your nerves or to get [...] Description 08/22/2025 9:00 AM EDT Office Visit [facility] Nephrology, Bone & Mineral Metabolism [address], [address] [place] [address] Kathia Watkins MD [address] [place] [address] 08/28/2025 8:50 AM EDT Hospital Encounter [facility] A OPERATING ROOM [address] [place] [address] Dyllan Paul MD [address] [address] 08/28/2025 8:50 AM EDT Anesthesia Event [facility] OPERATING ROOM [address] [place] [address] Paige Starkey, TORREY [address] [place] [address] 08/28/2025 8:50 AM EDT - 08/28/2025 10:35 AM EDT Surgery [facility]PERATING ROOM [address] [place] [address] Dyllan Paul MD [address] [place] [address] URETEROSCOPY, WITH LASER LITHOTRIPSY [[id number] (CPT )] 10/28/2025 8:00 AM EST Office [facility] [address], [address] [place] [address] Pavan Aldrich MD [address] [place] [address] Scheduled Procedures Name Priority Associated Diagnoses Date/Ti [...] documented as of this encounter Care Teams Learning And Development Consultant Relationship Specialty Start Date End Date Murray Prajapati MD [address] [place] [address] PCP - General 03/06/23 Jaja Camara APRN 1210 [facility] [address] [place] [address] Referring Physician Gastroenterology 03/06/23 Dyllan Paul MD [address] [place] [address] Surgeon Urology 04/29/25 Wendy Card LPN VALUE-BASED TRANSFORMATION PROGRAM TCM Nurse 07/07/25 documented as of this encounter
--- OUTSIDE RECORDS SUMMARY | 2025-08-06 12:30 | XMS_ITS | Encounter Summary ---
Author Organization [facility] [place] [facility] Address [address] [place] [address] Care Team Providers Care Family Resource Management Professor Name Role Phone Murray Prajapati MD Primary Care Provider [phone] Jaja Camara LOAN TELLER Unavailable [phone] Dyllan Paul MD Unavailable [phone] Marlin Martinez RN Unavailable Unavailable Wendy Card GRAFFITI CLEANER Unavailable Unavaila ble Encounter Details Date Type Department Care Team (Late Contact Info) Description 08/24/2010 Orders Only External Location [address] [place] [address] Provider, External Social History Tobacco [...] AM EDT Office Visit [facility] Nephrology, Bone & Mineral Metabolism [address] [facility], [address] [place] [address] Kathia Watkins MD [address] [facility] [address] [place] [address] 08/28/2025 8:50 AM EDT Hospital Encounter P[facility] A OPERATING ROOM [address] [place] [address] Dyllan Paul MD [address] [facility] [address] [place] [address] 08/28/2025 8:50 AM EDT Anesthesia Event [facility] A OPERATING ROOM [address] [place] [address] Paige Starkey, LOAN TELLER [address] [facility] [address] [place] [address] 08/28/2025 8:50 AM EDT - 08/28/2025 10:35 AM EDT Surgery [facility] A OPERATING ROOM [address] [place] [address] Dyllan Paul MD [address] [facility] [address] [place] [address] URETEROSCOPY, WITH LASER LITHOTRIPSY [[id number] (CPT )] 10/28/2025 8:00 AM EST Office Visit [place] [facility] [address] [place] [address] Pavan Aldrich MD [address] [facility] [address] [place] [address] Scheduled Procedures Name Priority Associated [...] documented as of this encounter Care Teams Family Resource Management Professor Relationship Specialty Start Date End Date Murray Prajapati MD [address] [place] [id number] PCP - General 03/06/23 Jaja Camara APRN [address] [place] [address] [place] [id number] Referring Physician Gastroenterology 03/06/23 Dyllan Paul MD [address] [facility] [address] [place] [address] Surgeon Urology 04/29/25 Marlin Martinez, RN [facility] Registered Nurse 06/30/25 06/30/25 Wendy Card LPN VALUE-BASED TRANSFORMATION PROGRAM TCM Nurse 07/07/25 documented as of this encounter
--- OUTSIDE RECORDS SUMMARY | 2025-08-06 12:30 | XMS_ITS | Encounter Summary ---
Author Organization [facility] Address [address] [place] [address] Care Team Providers Care Gastroenterology Nurse Practitioner Name Role Phone Murray Prajapati MD Primary Care Provider [phone] Jaja Camara PHYSICAL THERAPIST AIDE Unavailable [phone] Dyllan Paul MD Unavailable [phone] Wendy Card MMA FIGHTER Unavailable Unavaila ble Encounter Details Date Type Department Care Team (Late st Contact Info) Description 08/04/2025 Telephone PAV S Anesthesia [address] [place] [address] Lanre Franklin MD [address] [facility] [address] [place] [address] Social History Tobacco Use Types [...] in the past [address] [facility], were you homeless or living in a alf (including now)? No 07/28/2025 [facility] Utilities Answer Date Recorded In the past 12 months has e electric, gas, oil, or water company [...] drink first t rafy in the morning (EYE-DIALYSIS SOCIAL WORKER) to steady your nerves or [...] Description 08/22/2025 9:00 AM EDT Office Visit [facility] Nephrology, Bone & Mineral Metabolism [address] [facility], [address] [place] [address] Kathia Watkins MD [address] [facility] [address] [place] [address] 08/28/2025 8:50 AM EDT Hospital Encounter PAV A OPERATING ROOM [address] [place] [address] Dyllan Paul MD [address] [address] 08/28/2025 8:50 AM EDT Anesthesia Event [facility] A OPERATING ROOM [address] [place] [address] Paige Starkey, PHYSICAL THERAPIST AIDE [address] [place] [address] 08/28/2025 8:50 AM EDT - 08/28/2025 10:35 AM EDT Surgery P[facility] A OPERATING ROOM [address] [place] [address] Dyllan Paul MD [address] [address] URETEROSCOPY, WITH LASER LITHOTRIPSY [[id number] (CPT )] 10/28/2025 8:00 AM EST Office Visit [place] [facility] [address] [place] [address] Pavan Aldrich MD [address] [place] [address] Scheduled Procedures Name Priority Associated [...] documented as of this encounter Care Teams Gastroenterology Nurse Practitioner Relationship Specialty Start Date End Date Murray Prajapati MD [address] [facility] [address] [place] [address] PCP - General 03/06/23 Jaja Camara APRN [address] [facility] [address] [place] [address] Referring Physician Gastroenterology 03/06/23 Dyllan Paul MD [address] [place] [address] Surgeon Urology 04/29/25 Wendy Card LPN VALUE-BASED TRANSFORMATION PROGRAM TCM Nurse 07/07/25 documented as of this encounter
--- OUTSIDE RECORDS SUMMARY | 2025-08-06 12:30 | XMS_ITS | Encounter Summary ---
Author Organization [facility] Address [address] [place] [address] Care Team Providers Care Supervisor Frame Sample And Pattern Name Role Phone Murray Prajapati MD Primary Care Provider [phone] Jaja Camara DIRECTOR OF GROUP SALES Unavailable [phone] Dyllan Paul MD Unavailable [phone] Wendy Card JUNIOR COPYWRITER Unavailable Unavaila ble Encounter Details Date Type Department Care Team (Late st Contact Info) Description 08/01/[address] [facility] Medicine Specialties [address], [address] [place] [id number] Lata Leonardo [id number] Social History Tobacco Use Types Packs/Day Years [...] any time in the past 12 m [facility], were you homeless or living in a senior living (including now)? No 07/28/2025 [facility] Utilities Answer Date Recorded In the [...] drink first t rafy in the morning (EYE-ASSOCIATE PROFESSOR OF THEOLOGY) to steady your nerves or to get rid of a hangover? 0 07/26/2025 CAGE Questionnaire Score 0 09/06/2 025 PHQ-2A Answer Date Recorded Patient Health Questionnaire-2 Score 0 05/04/2023 Sex and Gender Information Value Date Recorded Sex Assigned at Not on file Legal Sex Male 8:25 PM EDT Gender Identity Not on file Sexual Orientation Not on file documented as of this encounter Miscellaneous Notes * Telephone Encounter - Lata Leonardo - 08/01/2025 3:06 PM EDT Patient's called She states that the incision from his procedure he had done is weeping again She's wondering what he needs to do CB: [phone] documented in this encounter Plan of Treatment Upcoming Encounters Date Type Department Care Team (Latest Contact Info) Description 08/22/2025 9:00 AM EDT Office Visit [facility] Nephrology, Bone & Mineral Metabolism [address] [facility], [address] [place] [address] Kathia Watkins MD [address] [place] [address] 08/28/2025 8:50 AM EDT Hospital Encounter PAV A OPERATING ROOM [address] [place] [address] Dyllan Paul MD [address] [place] [address] 08/28/2025 8:50 AM EDT Anesthesia Event P[facility] A OPERATING ROOM [address] [place] [address] Paige Starkey, TORREY [address] [place] [address] 08/28/2025 8:50 AM EDT - 08/28/2025 10:35 AM EDT Surgery PAV A OPERATING ROOM [address] [place] [address] Dyllan Paul MD [address] [place] [address] URETEROSCOPY, WITH LASER LITHOTRIPSY [[id number] (CPT )] 10/28/2025 8:00 AM EST Office Visit [place] [facility] Medicine Specialties [address] [place] [address] Pavan Aldrich MD [address] [place] [address] Scheduled Procedures Name Priority Associated [...] as of this encounter Care Teams Supervisor Frame Sample And Pattern Relationship Specialty Start Date End Date Murray Prajapati MD [address] [place] [address] PCP - General 03/06/23 Jaja Camara APRN 1210 [facility] [address] [place] [address] Referring Physician Gastroenterology 03/06/23 Dyllan Paul MD [address] [facility] [address] [place] [address] Surgeon Urology 04/29/25 Wendy Card LPN VALUE-BASED TRANSFORMATION PROGRAM TCM Nurse 07/07/25 documented as of this encounter
--- OUTSIDE RECORDS SUMMARY | 2025-08-06 12:30 | XMS_ITS | Encounter Summary ---
Author Organization [facility] Address [address] [place] [address] Care Team Providers Care Outside Cutter Name Role Phone Murray Prajapati MD Primary Care Provider [phone] Jaja Camara MARGARINE CHURN OPERATOR Unavailable [phone] Dyllan Paul MD Unavailable [phone] Wendy Card SURGICAL SCRUB TECHNICIAN Unavailable Unavaila ble Reason for Visit * Reason Onset Date Comments HCN Clinical Concern/Question 07/15/2025 Encounter Details Date Type Department Care Team (Late st Contact Info) Description 07/15/2025 Telephone [place] [facility] [address], [address] [place] [address] Dyllan Paul MD [address] [place] [address] HCN Clinical Concern/Question Social History [...] any time in the past 12 m [facility], were you homeless or living [...] drink first t rafy in the morning (EYE-ZYGLO INSPECTOR) to steady your nerves or to [...] going to try to send pictures via [employer] of incision site. Crystal RODRIGUEZ consulted. Advised [...] info. Thank you Best contact number: Other: [phone] Optimal time of day to reach caller: ANYTIME Additional comments/information from caller: None Note: Please do not reply to this message. Follow-up communication and further actions as a result of this message need to be communicated with the patient directly, if the patient is not active onMyChart. If the patient is active on MyChart, they will receive notification of the communication/outcome via [employer]. documented in this encounter Plan of Treatment Upcoming Encounters Date Type Department Care Team (Latest Contact Info) Description 08/22/2025 9:00 AM EDT Office Visit [facility] Nephrology, Bone & Mineral Metabolism [address] [facility], [address] [place] [address] Kathia Watkins MD [address] [facility] [address] [place] [address] 08/28/2025 8:50 AM EDT Hospital Encounter PAV A OPERATING ROOM [address] [place] [address] Dyllan Paul MD [address] [facility] [address] [place] [address] 08/28/2025 8:50 AM EDT Anesthesia Event PAV A OPERATING ROOM [address] [place] [address] Paige Starkey, MARGARINE CHURN OPERATOR [address] [place] [address] 08/28/2025 8:50 AM EDT - 08/28/2025 10:35 AM EDT Surgery PAV A OPERATING ROOM [address] [place] [address] Dyllan Paul MD [address] [facility] [address] [place] [address] URETEROSCOPY, WITH LASER LITHOTRIPSY [[id number] (CPT )] 10/28/2025 8:00 AM EST Office [facility] [place] [facility] [address] [place] [address] Pavan Aldrich MD [address] [facility] [address] [place] [address] Scheduled Procedures Name Priority Associated [...] documented as of this encounter Care Teams Outside Cutter Relationship Specialty Start Date End Date Murray Prajapati MD [address] [facility] [address] [place] [address] PCP - General 03/06/23 Jaja Camara, MARGARINE CHURN OPERATOR [address] [place] [address] [place] [address] Referring Physician Gastroenterology 03/06/23 Dyllan Paul MD [address] [facility] [address] [place] [address] Surgeon Urology 04/29/25 Wendy Card LPN VALUE-BASED TRANSFORMATION PROGRAM TCM Nurse 07/07/25 documented as of this encounter
--- OUTSIDE RECORDS SUMMARY | 2025-08-06 12:31 | XMS_ITS ---
Author Organization [facility] Address [address] [place] [address] Care Team Providers Care Insurance Office Manager Name Role Phone Murray Prajapati MD Primary Care Provider [phone] Jaja Camara SILVER MINER Unavailable [phone] Dyllan Paul MD Unavailable [phone] Wendy Card LPN Unavailable Unavaila ble Transitional Care Management Status:Active (Active) Start date:08/04/2025 Enrollment date:08/04/2025 Enrollment reason:Identified using hospital discharge data Overview This episode type is for outpatient care managers enrolling patients in the [facility] Transitional Care Management program. Case Team Name Relationship Phone Wendy Card LPN(Responsible Staff) [facility] Nu rse Continued Care and Services Coordination
--- OUTSIDE RECORDS SUMMARY | 2025-08-06 12:31 | XMS_ITS | Encounter Summary ---
Author Organization [facility] Address [address] [place] [address] Care Team Providers Care Certified Tower Climber Name Role Phone Murray Prajapati MD Primary Care Provider [phone] Jaja Camara RIM TURNING MACHINE OPERATOR Unavailable [phone] Dyllan Paul MD Unavailable [phone] Wendy Card RISK TECH Unavailable Unavaila ble Encounter Details Date Type Department Care Team (Late st Contact Info) Description 07/25/2025 Orders Only External Location [address] [place] [address] Provider, External Social History Tobacco Use Types [...] any time in the past 12 m [facility], were you homeless or living in a detention (including now)? No 07/28/[address] [facility] Utilities Answer Date Recorded In the [...] drink first t rafy in the morning (EYE-ASH HANDLER) to steady your nerves or to get [...] Nephrology, Bone & Mineral Metabolism [address] [facility], [address] [place] [address] Kathia Watkins MD [address] [facility] [address] [place] [address] 08/28/2025 8:50 AM EDT Hospital Encounter PAV A OPERATING ROOM [address] [place] [address] Dyllan Paul MD [address] [facility] [address] [place] [address] 08/28/2025 8:50 AM EDT Anesthesia Event PAV A OPERATING ROOM [address] [place] [address] Paige Starkey, TORREY [address] [place] [address] 08/28/2025 8:50 AM EDT - 08/28/2025 10:35 AM EDT Surgery PAV A OPERATING ROOM [address] [place] [address] Dyllan Paul MD [address] [place] [address] URETEROSCOPY, WITH LASER LITHOTRIPSY [[id number] (CPT )] 10/28/2025 8:00 AM EST Office Visit [place] [facility] [address] [place] [address] Pavan Aldrich MD [address] [place] [address] Scheduled Procedures Name Priority Associated Diagnoses Date/Ti me URETEROSCOPY, WITH LASER LITHOTRIPSY Ureteral stone 08/28/2025 8:50 AM EDT documented as of this encounter Goals Goal Patient Goal Type Associated Problems Recent Progress Patient-Stated? Author Autogenerat ed Goal Care Plan Autogenerated Problem No Johnna Quiñones documented as of this encounter Procedures Procedure Name Priority Date/Time Associated Diagnosis Comments CT OUTSIDE IMAGES 07/25/2025 6:09 PM EDT documented in this encounter Results * CT OUTSIDE IMAGES (07/25/2025 6:09 PM [...] as of this encounter Care Teams Certified Tower Climber Relationship Specialty Start Date End Date Murray Prajapati MD [address] [facility] [address] [place], [place] [id number] PCP - General 03/06/23 Jaja Camara APRN [address] [place] [address] Referring Physician Gastroenterology 03/06/23 Dyllan Paul MD [address] [place] [address] Surgeon Urology 04/29/25 Wendy Card LPN VALUE-BASED TRANSFORMATION PROGRAM TCM Nurse 07/07/25 documented as of this encounter
== END 2025-08-05 23:59 ==
LOC: LAB.DROPOF 08-06 12:22
PROVIDERS: PCP Internal Medicine; Visit Provider Internal Medicine
DX: D64.9 Anemia, unspecified (principal); K74.60 Unspecified cirrhosis of liver; N17.9 Acute kidney failure, unspecified; I95.9 Hypotension, unspecified; R60.9 Edema, unspecified
CPT/HCPCS: 80053; 85025

== ENCOUNTER 2025-08-15 09:47 | Emergency (ER) | payer BC, SELFPAY ==
--- OUTSIDE RECORDS SUMMARY | 2025-06-12 10:20 | XMS_ITS | Encounter Summary ---
Author Organization [facility] Address [address] [place] [address] Care Team Providers Care Records Section Supervisor Name Role Phone Murray Prajapati MD Primary Care Provider [phone] Jaja Camara SEMI DRIVER Unavailable [phone] Dyllan Paul MD Unavailable [phone] Reason for Referral * Consultation (Routine) - Authorized Specialty Diagnoses / Procedures Referred By Silverio barone Referred To Contact Hepatology Diagnoses Alcoholic cirrhosis of liver with ascites Hepatic cirrhosis, unspecified hepatic cirrhosis type, unspecified whether ascites present Trice Herrera MD [address] [address] Phone: tel: fax: Referral ID Status Reason Start Date Expiration Date Visits Requested Visits Authorized [id number] Authorized Specialty Services Required 06/25/2025 12/25/2026 1 1 * Imaging (Routine) - Closed Specialty Diagnoses / Procedures Referred By Silverio barone Referred To Contact Radiology Diagnoses Renal calculi Procedures CT Urogram Trice Herrera MD [address] [address] Phone: tel: fax: Referral ID Status Reason Start Date Expiration Date Visits Re quested Visits Authorized [id number] Closed 06/25/2025 12/25/2026 1 1 * Consultation (Routine) - Authorized Specialty Diagnoses / Procedures Referred By Contac t Referred To Contact Hepatology Diagnoses Hepatic cirrhosis, unspecified hepatic cirrhosis type, unspecified whether ascites present Trice Herrera MD [address] [address] Phone: tel: fax: Referral ID Status Reason Start Date Expiration Date Visits Requested Visits Authorized [id number] Authorized Specialty Services Required 06/25/2025 12/25/2026 1 1 * Consultation (Routine) - Authorized Specialty Diagnoses / Procedures [facility] Referred To Contact Internal Medicine Diagnoses Alcoholic cirrhosis of liver with ascites Nir Aguilar MD [address] [place] [address] Phone: tel: fax: Referral ID Status Reason Start Date Expiration Date Visits Requested Visits Authorized [id number] Authorized Specialty Services Required 06/25/2025 12/25/2026 1 1 Scheduling Instructions Establish care with PCP, Patient with history of cirrhosis and prostate cancer * Consultation (Routine) - Authorized Specialty Diagnoses / Procedures [facility] Referred To Contact Occupational Therapy Diagnoses H/O prostatectomy Trice Herrera MD [address] [address] Phone: tel: fax: Referral ID Status Reason Start Date Expiration Date Visits Requested Visits Authorized [id number] Authorized Consult and Treat 06/25/2025 12/25/2026 1 1 * Consultation (Routine) - Authorized Specialty Diagnoses / Procedures [facility] Referred To Contact Physical Therapy Diagnoses H/O prostatectomy Trice Herrera MD [address] [place] [phone] Phone: tel: fax: Referral ID Status Reason Start Date Expiration Date Visits Requested Visits Authorized [id number] Authorized Consult and Treat 06/25/2025 12/25/2026 1 1 * Home Health (Routine) - Authorized Specialty Diagnoses / Procedures Referred By Silverio barone Referred To Contact Home Health Services Diagnoses Prostate CA Dyllan Paul MD [address] [address] Phone: tel: fax: Referral ID Status Reason Start Date Expiration Date Visits Requested Visits Authorized [id number] Authorized Specialty Services Required 06/23/2025 12/23/2026 999 999 Reason for Visit * Auth/Cert (Routine) Specialty Diagnoses / Procedures Referred By Silverio barone Referred To Contact Diagnoses Prostate CA PROSTATE CANCER Procedures GA LAP,PROSTATECTOMY,RADICAL, W/NERVE SPARE,INCL ROBOTIC PROSTATECTOMY, RADICAL, ROBOT-ASSISTED Dyllan Paul MD [address] [address] Phone: tel: fax: [facility] [address] [place] [address] Phone: tel: Referral ID Status Reason Start Date Expiration Date Visits Re quested Visits Authorized [id number] 1 1 Encounter Details Date Type Department Care Team (Latest Contact Info) Description 06/12/2025 10:20 AM EDT - 06/25/2025 7:12 PM EDT Hospital Encounter [facility] [address] [place] [address] Dyllan Paul MD [address] [address] Prostate CA (CMS/HCC) (Primary Dx); Alcohol use disorder; On mechanically assisted ventilation (CMS/HCC); Leukocytosis, unspecified type; Hypotension due to hypovolemia; Hypocalcemia; Hyperbilirubinemia; Electrolyte abnormality; Severe obesity (BMI 35.0-39.9) with comorbidity (CMS/HCC); SCC (squamous cell carcinoma), leg, left; Renal calculi; Other secondary hypertension; Alcoholic cirrhosis of liver with ascites (CMS/HCC); H/O prostatectomy; Hepatic cirrhosis, unspecified hepatic cirrhosis type, unspecified whether ascites present (CMS/HCC) Discharge Disposition: Home or Self Care Social [...] Recorded Patient Health Questionnaire-9 Score 0 04/29/2025 Humiliation, Afraid, Rape, and Kick questionnair e Answer Date Recorded Within the last year, have y ou been afraid of your partner or ex-partner? No 06/16/2025 Within the last year, have y ou been humiliated or emotionally abused in other ways by your partner or ex-partner? No Within the last year, have y ou been kicked, hit, slapped, or otherwise physically hurt by your partner or ex-partner? No 06/16/2025 Within the last year, have y ou been raped or forced to have any kind of sexual activity by your partner or ex-partner? No 06/16/2025 Hunger Vital Sign Answer Date Recorded Within the past 12 months, y ou worried that your food would run out before you got the money to buy more. Never true 06/16/20 25 Within the past 12 months, t he food you bought just didn't last and you didn't have money to get more. Never true 06/16/2025 PRAPARE - Transportation Answer Date Re corded In the past 12 months, has l ack of transportation kept you from medical appointments or from getting medications? No 05/21 In the past 12 months, has l ack of transportation kept you from meetings, work, or from getting things needed for daily living? No 06/16/2025 Housing Stability Vital Sign Answer Richard e Recorded In the last 12 months, was t here a time when you were not able to pay the mortgage or rent on time? No 06/16/2025 In the past 12 months, how m any times have you moved where you were living? 0 06/16/2025 At any time in the past 12 m [facility], were you homeless or living in a long-term (including now)? No 06/16/2025 Utilities Answer Date Recorded In the past 12 months has th e electric, gas, oil, or water company threatened to shut off services in your home? No 06/16/2025 PHQ-2A Answer Date Recorded Patient Health Questionnaire-2 Score 0 05/04/2023 Sex and Gender Information Value Date Recorded Sex Assigned at Not on file Legal Sex Male 8:25 PM EDT Gender Identity Not on file Sexual Orientation Not on file documented as of this encounter Last Filed Vital Signs Vital Sign Reading Time Taken Comments Blood Pressure 116/72 06/25/2025 11:21 AM EDT Pulse 75 06/25/2025 11:21 AM EDT Temperature 36.3 C (97.4 F) 06/25/2025 11:21 AM EDT Respiratory Rate 16 06/25/2025 11:21 AM EDT Oxygen Saturation 92% 06/25/2025 11:21 AM EDT Inhaled Oxygen Concentration - - Weight 116 kg (255 lb 4.7 oz) 06/23/2025 4:41 AM EDT Height 175.3 cm (5' 9 ) 06/12/2025 12:15 PM EDT Body Mass Index 37.7 06/12/2025 12:15 PM EDT documented in this encounter Functional Status * Calculated C-SSRS Risk Score (Lifetime/Recent) Answer Date of Assessment Author No Risk Indicated 06/24/2025 8:00 PM EDT Gill White RN * Question Answer Date of Assessment Author 1. Wish to be (Past 1 Month) No 025 8:00 PM EDT Gill White, RN 2. Non-Specific Active Suici tyra Thoughts (Past 1 Month) No 06/24/2025 8:00 PM EDT Christopher, Gill L, RN 6. Suicidal Behavior (Lifetime) No 8:00 PM EDT Gill White RN documented as of this encounter Discharge Instructions * Discharge Instructions* Bianka Hansen MD - 06/24/2025 7:56 AM EDT Medications: - You should take 500mg Tylenol every 6 hours for mild - moderate pain. You may take up to 1000mg every 6 hours but do not take more than 4000mg in a day. - You should take 500mg methocarbamol 4 times per day for muscle spasms. - You have been prescribed pain medications to be taken as needed for severe pain. - You should take the stool softener prescribed as long as you are taking narcotics. - You may resume your previous medications unless otherwise instructed. Nutrition: - You may resume your normal diet as tolerated, focusing on liquids to keep yourself hydrated. Activity: - Walking and climbing stairs is ok and encouraged. You should refrain from any strenuous activity/exercise until your follow up appointment. - No lifting anything >10lbs (approximately a gallon of milk) for the next 6 weeks. - You may not drive for 24 hours after surgery, or while taking narcotics Incision: - A special skin glue is used to close and cover your incision. Do not pick it off, it will fall ofon its own after approximately 2 weeks. - You have beba across your incision. These will be removed in clinic at your follow up appointment. - You should try to keep your incisions as clean and dry as possible - You may shower. Let the soapy water run over your incisions. Do not scrub at your incisions. After you shower, pat your incisions dry with a clean towel. - Do NOT soak your incisions, or take a tub bath for 2 weeks. Potential Issues: - It is normal to have some pain and soreness, especially around the incisions. - A small amount of clear drainage from the incision may be expected, call the office if the drainage becomes bloody, purulent (pus), or foul-smelling - Call the office if you start to have increased redness, drainage, swelling, or increased pain around your incision - Call the office if you have a fever greater than 101 F - Call the office if you have severe abdominal discomfort, nausea and vomiting, or feeling unwell Medications: - Start taking Lovenox 120 mg twice daily for 3 months. You will follow up with a Primary Care Provider to manage. Follow Up: - You will be contacted by the clinic for a follow up appointment in approximately 2-3 weeks with aCT Urogram. Questions or Concerns and Appointments (physicians work at both clinics so confirm your location ahead of your appointment) [facility] Urology Department Clinic at [facility] [address], [address] [place] [address] Clinic After Hours [facility] [address] [place] [address] Clinic documented in this encounter Medications at Time of Discharge atorvastatin (Lipitor) 10 MG tablet Take 1 tablet by mouth daily. enoxaparin (Lovenox) 120 MG/0.8ML solution prefilled syringe Inject 0.8 mL under the skin every 12 hours. 180 each 06/25/2025 5 multivitamin-iron -minerals-folic acid (Centrum) chewable tablet Chew 1 tablet daily. Vitamin E 450 MG (1000 UT) capsule Take 1,000 Units by mouth 1 (one) time each day. acetaminophen (Tylenol) 500 MG tablet Take 2 tablets by mouth every 8 hours as needed for pain. 60 tablet 06/25/2025 5 carvedilol (Coreg) 3.125 MG tabletIndications :Esophageal varices without bleeding, unspecified esophageal varices type Take 1 tablet by mouth 2 times a day. 60 tablet 2 03/28/2025 5 furosemide (Lasix) 40 MG tablet Take 1 tablet by mouth 2 times a day. 5 ibuprofen 400 MG tablet Take 2 tablets by mouth every 6 hours as needed for moderate pain. 60 tablet 06/25/2025 5 lactulose (Chronulac) 10 GM/15ML solution Take 15 mL by mouth daily. 473 mL 1 06/26/2025 5 methocarbamol (Robaxin) 750 MG tablet Take 1 tablet by mouth 4 times a day as needed for muscle spasms. 120 tablet 06/25/2025 5 potassium chloride CR (Klor-Con) 10 MEQ ER tablet Take 1 tablet by mouth daily. Do not crush, chew, or split. 5 tamsulosin (Flomax) 0.4 MG 24 hr capsule Take 1 capsule by mouth 1 time each day with dinner. 30 capsule 06/25/2025 5 documented as of this encounter Miscellaneous Notes * Query Clarification Note - Dyllan Paul MD - 06/25/2025 7:12 PM EDT Physician Clarification Please review the following and provide your response below. Anemia is documented in 06/12/24 Critical Care note and subsequent progress notes Patient transfused 2 units PRBCs intraoperatively for umbilical vein bleed 06/12/25 Op note: Prostate CA Robotic assisted laparoscopic radical prostatectomy Robotic assisted laparoscopic bilateral pelvic lymph node dissection Laparotomy with ligation of dilated umbilical veins Estimated Blood Loss: 1300 mL Please provide additional specificity regarding the type/etiology and acuity of the anemia for evaluating, treating, and/or monitoring such as: [x] Acute blood loss anemia [] Other Type (please specify) This documentation will become part of the patient's medical record. * Query Clarification Note - Dyllan Paul MD - 06/25/2025 7:12 PM EDT Please review and provide your response 70 y.o M s/p Robotic assisted laparoscopic radical prostatectomy, Robotic assisted laparoscopic bilateral pelvic lymph node dissection 06/14/25 Urology note documents: remains intubated and sedated in the ICU this morning. He failed his spontaneous breathing trial yesterday. He was saturating in the 70's. Today, patient FiO2 was increased to 90% due to desaturation to 80's. At bedside, he is on pressure regulated volume control. 06/15/25 Urology: he struggled coming off of the ventilator. Decreased his FiO2 to 60% from 80%. Patient SaO2 91%. 06/17/25 Extubated to 4L NC and weaned to room air 06/22/25 CT chest: Right lower segmental and subsegmental pulmonary embolism. Please clarify which of the following accurately represents the patient's respiratory status: [] Acute Pulmonary insufficiency following surgery [x] Acute Hypoxic Respiratory Failure due to other condition/disease process [] Hypoxia without respiratory failure [] Other please specify This documentation will become part of the patient's medical record. * Yina Zavala RN - 06/25/2025 5:19 PM EDT Images from the original note were not included. [id number] Preventing Kidney Stones If you?ve had a kidney stone, you may worry that you?ll have another. Removing or passing your stone doesn?t prevent future stones. But with your health care provider?s help, you can reduce your riskof forming new stones. Follow up with your provider to help find new stones. Depending on your medical condition, you may need to follow up every 3 to 12 months for the rest of your life. Drink lots of water Staying well-hydrated is the best way to reduce your risk of future stones. Drink 8 12-ounce glasses of water daily. Have 2 glasses with each meal and 2 glasses between meals. unless your health careprovider has restricted your fluids. Keep track of your intake. Try keeping a pitcher of water nearby during the day and at night. Ask your provider about how much fluid you should have if you have congestive heart failure, kidney disease, or kidney failure. Take medicines if needed Medicines, including vitamins and minerals, may be prescribed for certain types of stones. You may want to write your doses and medicine times on a calendar. Some medicines decrease stone-forming chemicals in your blood. Others help prevent those chemicals from crystallizing in urine. Still others help keep a normal acid balance in your urine. Follow your prescribed diet Your health care provider will tell you which foods contain the compounds you should not have. Yourprovider may also suggest talking with a dietitian. They can help you plan meals you?ll enjoy that won't put you at risk for future stones. Bring your spouse, partner, or close friend with you when you meet with the dietitian so you can have support for your diet changes. You may be told to limit certain foods, depending on which type of stones you?ve had. Limit the amount of salt in your food to about 2 grams a day. This will help prevent most types of kidney stones.Make sure you get enough calcium in your diet, and stay away from extra calcium supplements. The recommended calcium intake to help prevent calcium stones is 1,000 to 1,200 mg per day. (You can eat 3servings of dairy products with meals to meet the recommendation.) For calcium oxalate stones: Limit animal protein, such as meat, eggs, and fish. Limit grapefruit juice and alcohol. Limit high-oxalate foods (such as cola, tea, chocolate, spinach, rhubarb, wheat bran, and peanuts). Limit sodium intake, because it causes increased leakage of calcium in your urine. For uric acid stones: Limit high-purine foods, such as red meat, shellfish, anchovies, and organ meats. These foods increase uric acid production. Stay away from alcohol and drinks with high fructosecorn syrup. They can increase your risk of forming another kidney stone. For cystine stones: Limit high-methionine foods. (Fish is the most common, but they include eggs and meats too.) These foods increase production of cystine. Last Reviewed Date: 2025 00:00:00 ?? [id number] [employer]. All rights reserved. This information is not intended as a substitute for professional medical care. Always follow your healthcare professional's instructions. * Laury SolorioMIRTHA - Yina Kruse RN - 06/25/2025 5:19 PM EDT Images from the original note were not included. 288 Prem[employer] Patient Education packets Premade Patient Education packets are available for these topics: ? Coumadin ? Head Injury (Mild-Moderate and Moderate-Severe) ? Lovenox These packets are available in areas that use them frequently. If you need a packet and it is not available in your area, call the [facility] at [phone]. * Laury OnFHIR - Yina Kruse RN - 06/25/2025 5:19 PM EDT Images from the original note were not included. [id number] Enoxaparin Injection IMPORTANT WARNING: If you have epidural or spinal anesthesia or a spinal puncture while taking a 'blood thinner' such as enoxaparin, you are at risk for having a blood clot form in or around your spine that could causeyou to become paralyzed. Tell your doctor if you are taking other anticoagulants ('blood thinners')such as warfarin (Coumadin), anagrelide (Agrylin), aspirin or nonsteroidal anti-inflammatory drugs (ibuprofen, naproxen), cilostazol (Pletal), clopidogrel (Plavix), dipyridamole (Persantine), eptifibatide (Integrilin), prasugrel (Effient), sulfinpyrazone (Anturane), ticlopidine (Ticlid), and tirofiban (Aggrastat). If you experience any of the following symptoms, call your doctor immediately: numbness, tingling, leg weakness or paralysis, and loss of control over your bladder or bowels. Talk to your doctor about the risk of taking enoxaparin. Keep all appointments with your doctor. WHY is this medicine prescribed? Enoxaparin is used to prevent blood clots in the leg in patients who are on bedrest or who are having hip replacement, knee replacement, or stomach surgery. It is used in combination with aspirin to prevent complications from angina (chest pain) and heart attacks. It is also used in combination with warfarin to treat blood clots in the leg. Enoxaparin is in a class of medications called low molecular weight heparins. It works by stopping the formation of substances that cause clots. HOW should this medicine be used? Enoxaparin comes as an injection in a syringe to be injected just under the skin (subcutaneously) but not into your muscle. It is usually given twice a day. You will probably begin using the drug while you are in the hospital and then use it for a total of 10 to 14 days. Follow the directions on your prescription label carefully, and ask your doctor or pharmacist to explain any part you do not understand. Use enoxaparin exactly as directed. Do not inject more or less of it or inject it more often than prescribed by your doctor. Continue to use enoxaparin even if you feel well. Do not stop taking enoxaparin without talking to your doctor. Your healthcare provider will teach you how to give yourself the shot or arrangements will be made for someone else to give you the shot. Enoxaparin is usually injected in the stomach area. You must use a different area of the stomach each time you give the shot. If you have questions about where to give the shot, ask your healthcare provider. Each syringe has enough drug in it for one shot. Do not use the syringe and needle more than one time. Your doctor, pharmacist, or health care provider will tell you how to dispose of used needles and syringes to avoid accidental injury. Keep syringes and needles out of reach of children. To inject enoxaparin, follow these instructions: ? Wash your hands and the area of skin where you will give the shot. ? Look at the syringe to be sure the drug is clear and colorless or pale yellow. ? Take the cap off the needle. Do not push any air or drug out of the syringe before giving the shot unless your healthcare provider tells you to. ? Lie down and pinch a fold of skin between your finger and thumb. Push the entire needle into the skin and then press down on the syringe plunger to inject the drug. Hold onto the skin the entire time you give the shot. Do not rub the site after you give the shot. Are there OTHER USES for this medicine? This medication may be prescribed for other uses; ask your doctor or pharmacist for more information. What SPECIAL PRECAUTIONS should I follow? Before taking enoxaparin, ? tell your doctor and pharmacist if you are allergic to enoxaparin, heparin, any other drugs, or pork products. ? tell your doctor and pharmacist what prescription and nonprescription medications, vitamins, nutritional supplements, and herbal products you are taking or plan to take while receiving enoxaparin. Your doctor may need to change the doses of your medications or monitor you carefully for side effects. ? the following nonprescription products may interact with enoxaparin: aspirin and nonsteroidal anti-inflammatory drugs (NSAIDs) such as ibuprofen (Advil, Motrin, others) and naproxen (Aleve, Naprosyn, others). Be sure to let your doctor and pharmacist know that you are taking these medications before you start receiving enoxaparin. Do not start any of these medications while receiving enoxaparinwithout discussing with your healthcare provider. ? tell your doctor if you have an artificial heart valve and if you have or have ever had kidney disease, an infection in your heart, a stroke, a bleeding disorder, ulcers, or a low platelet count. ? tell your doctor if you are , plan to become , or are breast- feeding. If you become while taking enoxaparin, call your doctor. ? if you are having surgery, including dental surgery, tell the doctor or dentist that you are taking enoxaparin. What should I do IF I FORGET to take a dose? Inject the missed dose as soon as you remember it. However, if it is almost time for the next dose,skip the missed dose and continue your regular dosing schedule. Do not inject a double dose to makeup for a missed one. What SIDE EFFECTS can this medicine cause? If you experience any of the following symptoms or those listed in the IMPORTANT WARNING section, call your doctor immediately: ? unusual bleeding or bruising ? black or bloody stools ? blood in urine ? swollen ankles and/or feet If you experience a serious side effect, you or your doctor may send a report to the Food and Drug Administration's (FDA) MedWatch Adverse Event Reporting program online (https://www.fda.gov/Safety/MedWatch) or by phone ( ). What should I know about STORAGE and DISPOSAL of this medication? Keep this medication out of reach of children. Store the syringes at room temperature and away fromexcess heat and moisture (not in the bathroom). Do not use the syringe if it leaks or if the fluid is dark or contains particles. Dispose of unneeded medications in a way so that pets, children, and other people cannot take them.Do not flush this medication down the toilet. Use a medicine take-back program. Talk to your pharmacist about take-back programs in your community. Visit the FDA's Safe Disposal of Medicines website h ttps://goo.gl/c4Rm4p for more information. Keep all medication out of sight and reach of children as many containers are not child-resistant. Always lock safety caps. Place the medication in a safe location - one that is up and away and out of their sight and reach. https://www.upandaway.org What should I do in case of OVERDOSE? In case of overdose, call the poison control helpline at . Information is also available online at https://www.poisonhelp.org/help. If the victim has collapsed, had a seizure, has trouble breathing, or can't be awakened, immediately call emergency services at 511. What OTHER INFORMATION should I know? Keep all appointments with your doctor and the laboratory. Your doctor will order certain lab teststo monitor your enoxaparin therapy. Enoxaparin prevents blood from clotting so it may take longer than usual for you to stop bleeding if you are cut or injured. Avoid activities that have a high risk of causing injury. Call your doctorif bleeding is unusual. Do not let anyone else use your medication. Your prescription is probably not refillable. Keep a written list of all of the prescription and nonprescription (amem-oaj-rotmctz) medicines, vitamins, minerals, and dietary supplements you are taking. Bring this list with you each time you visit a doctor or if you are admitted to the hospital. You should carry the list with you in case of rogelio rgencies. Brand Name(s): ? Lovenox?? also available generically This report on medications is for your information only, and is not considered individual patient advice. Because of the changing nature of drug information, please consult your physician or pharmacist about specific clinical use. The [employer] [employer] represents that the information provided hereunder was formulated with a reasonable standard of care, and in conformity with professional standards in the field. The [employer] [employer] makes no representations or warranties, express or implied, including, but not limited to, any implied warranty of merchantability and/or fitness for a particular purpose, with respect to such information and specifically disclaims all such warranties. Users are advised that decisions regarding drug therapy are complex medical decisions requiring the independent, informed decision of an appropriate health skin care specialist, and the information is provided for informational purposes only. The entire monograph for a drug should be reviewed for a thorough understanding of the drug's actions, uses and side effects. The [employer] does not endorse or recommend the use of any drug.The information is not a substitute for medical care. AHFS?? Patient Medication Information?. ?? Copyright, 2023. The [employer]??, [address], [address], [place], [place]. All Rights Reserved. Duplication for commercial use must be authorized by [facility]. Selected Revisions: June 08, 2024. AHFS?? Patient Medication Information?. ?? Copyright, 2024 * [facility] - Yina Kruse RN - 06/25/2025 5:19 PM EDT Images from the original note were not included. [id number] Methocarbamol WHY is this medicine prescribed? Methocarbamol is used with rest, physical therapy, and other measures to relax muscles and relieve pain and discomfort caused by strains, sprains, and other muscle injuries. Methocarbamol is in a class of medications called muscle relaxants. It works by slowing activity in the nervous system to allow the body to relax HOW should this medicine be used? Methocarbamol comes as a tablet to take by mouth. It usually is taken four times a day at first, then it may be changed to three to six times a day. Follow the directions on your prescription label carefully, and ask your doctor or pharmacist to explain any part you do not understand. Take methocarbamol exactly as directed. Do not take more or less of it or take it more often than prescribed by your doctor. Are there OTHER USES for this medicine? This medication may be prescribed for other uses. Ask your doctor or pharmacist for more information. What SPECIAL PRECAUTIONS should I follow? Before taking methocarbamol, ? tell your doctor and pharmacist if you are allergic to methocarbamol, any other medications or any of the ingredients in methocarbamol tablets. Ask your doctor or pharmacist for a list of the ingredients. ? tell your doctor and pharmacist what prescription and nonprescription medications, vitamins, nutritional supplements, and herbal products you are taking or plan to take while taking methocarbamol. Your doctor may need to change the doses of your medications or monitor you carefully for side effects. ? tell your doctor if you are , plan to become , or are breast- feeding. If you become while taking methocarbamol, call your doctor. ? talk to your doctor about the risks and benefits of taking methocarbamol if you are 65 years of age or older. Older adults should not usually take methocarbamol because it is not as safe or as effective as other medications that can be used to treat the same condition. ? you should know that this medication may make you drowsy. Do not drive a car or operate machineryuntil you know how methocarbamol affects you. ? talk to your doctor about the safe use of alcohol during your treatment with this medication. Alcohol can make the side effects of methocarbamol worse. What SPECIAL DIETARY instructions should I follow? Unless your doctor tells you otherwise, continue your normal diet. What should I do IF I FORGET to take a dose? Take the missed dose as soon as you remember it. However, if it is almost time for the next dose, skip the missed dose and continue your regular dosing schedule. Do not take a double dose to make up for a missed one. What SIDE EFFECTS can this medicine cause? If you experience either of the following symptoms, call your doctor immediately: ? rash ? itching Methocarbamol may cause other side effects. Call your doctor if you have any unusual problems whileyou are taking this medication. If you experience a serious side effect, you or your doctor may send a report to the Food and Drug Administration's (FDA) MedWatch Adverse Event Reporting program online (https://www.fda.gov/Safety/MedWatch) or by phone ( ). What should I know about STORAGE and DISPOSAL of this medication? Keep this medication in the container it came in, tightly closed, and out of reach of children. Store it at room temperature and away from excess heat and moisture (not in the bathroom). Dispose of unneeded medications in a way so that pets, children, and other people cannot take them.Do not flush this medication down the toilet. Use a medicine take-back program. Talk to your pharmacist about take-back programs in your community. Visit the FDA's Safe Disposal of Medicines website h ttps://goo.gl/c4Rm4p for more information. Keep all medication out of sight and reach of children as many containers are not child-resistant. Always lock safety caps. Place the medication in a safe location - one that is up and away and out of their sight and reach. https://www.upandaway.org What should I do in case of OVERDOSE? In case of overdose, call the poison control helpline at . Information is also available online at https://www.poisonhelp.org/help. If the victim has collapsed, had a seizure, has trouble breathing, or can't be awakened, immediately call emergency services at 241. What OTHER INFORMATION should I know? Keep all appointments with your doctor. Do not let anyone else take your medication. Ask your pharmacist any questions you have about refilling your prescription. Keep a written list of all of the prescription and nonprescription (qmae-fyc-fmggwmb) medicines, vitamins, minerals, and dietary supplements you are taking. Bring this list with you each time you visit a doctor or if you are admitted to the hospital. You should carry the list with you in case of rogelio rgencies. Brand Name(s): ? Robaxin?? also available generically This report on medications is for your information only, and is not considered individual patient advice. Because of the changing nature of drug information, please consult your physician or pharmacist about specific clinical use. The [employer] [employer] represents that the information provided hereunder was formulated with a reasonable standard of care, and in conformity with professional standards in the field. [employer] [employer] makes no representations or warranties, express or implied, including, but not limited to, any implied warranty of merchantability and/or fitness for a particular purpose, with respect to such information and specifically disclaims all such warranties. Users are advised that decisions regarding drug therapy are complex medical decisions requiring the independent, informed decision of an appropriate health skin care specialist, and the information is provided for informational purposes only. The entire monograph for a drug should be reviewed for a thorough understanding of the drug's actions, uses and side effects. The [employer] [employer] does not endorse or recommend the use of any drug.The information is not a substitute for medical care. AHFS?? Patient Medication Information?. ?? Copyright, 2023. [employer]??, [address], [address], [place], [place]. All Rights Reserved. Duplication for commercial use must be authorized by [facility]. Selected Revisions: July 04, 2017. AHFS?? Patient Medication Information?. ?? Copyright, 2024 * Laury SolorioMIRTHA - Yina Kruse RN - 06/25/2025 5:19 PM EDT Images from the original note were not included. [id number] Stool Softeners WHY is this medicine prescribed? Stool softeners are used on a short-term basis to relieve constipation by people who should avoid straining during bowel movements because of heart conditions, hemorrhoids, and other problems. They work by softening stools to make them easier to pass. HOW should this medicine be used? Stool softeners come as a capsule, tablet, liquid, and syrup to take by mouth. A stool softener usually is taken at bedtime. Follow the directions on the package or your prescription label carefully,and ask your doctor or pharmacist to explain any part you do not understand. Take stool softeners exactly as directed. Do not take more or less of it or take it more often than prescribed by your doctor. Swallow the docusate capsules whole; do not split, chew, or crush them. Take capsules and tablets with a full glass of water. The liquid comes with a specially marked dropper for measuring the dose. Ask your pharmacist to show you how to use it if you have difficulty. Mix the liquid (not the syrup) with 4 ounces (120 milliliters) of milk, fruit juice, or formula to mask its bitter taste. One to three days of regular use usually are needed for this medicine to take effect. Do not take stool softeners for more than 1 week unless your doctor directs you to. If sudden changes in bowel habits last longer than 2 weeks or if your stools are still hard after you have taken this medicine for 1 week, call your doctor. Are there OTHER USES for this medicine? This medication may be prescribed for other uses; ask your doctor or pharmacist for more information. What SPECIAL PRECAUTIONS should I follow? Before taking stool softeners, ? tell your doctor and pharmacist if you are allergic to any stool softeners, any other medications, or to any of the ingredients in the stool softeners, Ask your pharmacist for a list of the ingredients. ? tell your doctor and pharmacist what prescription and nonprescription medications, vitamins, nutritional supplements, and herbal products you are taking or plan to take while taking stool softeners. Your doctor may need to change the doses of your medications or monitor you carefully for side effects. ? the following nonprescription product may interact with stool softeners: mineral oil. Be sure to let your doctor and pharmacist know that you are taking this medication before you start taking stool softeners. Do not start any of this medication while taking stool softeners without discussing with your healthcare provider. ? tell your doctor if you are , plan to become , or are . If you become while taking stool softeners, call your doctor. What should I do IF I FORGET to take a dose? This medication usually is taken as needed. If your doctor has told you to take stool softeners regularly, take the missed dose as soon as you remember it. However, if it is almost time for the next dose, skip the missed dose and continue your regular dosing schedule. Do not take a double dose to make up for a missed one. What SIDE EFFECTS can this medicine cause? Some side effects can be serious. If you experience any of the following symptoms, call your doctorimmediately: ? rash ? hives ? difficulty breathing or swallowing ? fever ? vomiting ? stomach pain If you experience a serious side effect, you or your doctor may send a report to the Food and Drug Administration's (FDA) MedWatch Adverse Event Reporting program online (https://www.fda.gov/Safety/MedWatch) or by phone ( ). What should I know about STORAGE and DISPOSAL of this medication? Keep this medication in the container it came in, tightly closed, and out of reach of children. Store it at room temperature and away from excess heat and moisture (not in the bathroom). Keep all medication out of sight and reach of children as many containers are not child-resistant. Always lock safety caps. Place the medication in a safe location - one that is up and away and out of their sight and reach. https://www.[employer].org Dispose of unneeded medications in a way so that pets, children, and other people cannot take them.Do not flush this medication down the toilet. Use a medicine take-back program. Talk to your pharmacist about take-back programs in your community. Visit the FDA's Safe Disposal of Medicines website h ttps://goo.gl/c4Rm4p for more information. What OTHER INFORMATION should I know? Ask your pharmacist any questions you have about taking this medicine. Keep a written list of all of the prescription and nonprescription (cfhg-lra-dwvvsmm) medicines, vitamins, minerals, and dietary supplements you are taking. Bring this list with you each time you visit a doctor or if you are admitted to the hospital. You should carry the list with you in case of rogelio rgencies. Brand Name(s): ? Colace?? ? Correctol Soft Gels?? ? Diocto?? ? Ex-Lax Stool Softener?? ? Fleet Sof-Lax?? ? Hylton' Liqui-Gels?? ? Surfak?? ? Correctol 50 Plus?? (as a combination product containing Docusate, Sennosides) ? Ex-Lax Gentle Strength?? (as a combination product containing Docusate, Sennosides) ? Gentlax S?? (as a combination product containing Docusate, Sennosides) ? Cari-Colace?? (as a combination product containing Docusate, Sennosides) ? Senokot S?? (as a combination product containing Docusate, Sennosides) also available generically dioctyl calcium sulfosuccinate, dioctyl sodium sulfosuccinate, docusate calcium, docusate sodium, NILS, DSS This report on medications is for your information only, and is not considered individual patient advice. Because of the changing nature of drug information, please consult your physician or pharmacist about specific clinical use. The [employer] [employer] represents that the information provided hereunder was formulated with a reasonable standard of care, and in conformity with professional standards in the field. [employer] [place] [employer] makes no representations or warranties, express or implied, including, but not limited to, any implied warranty of merchantability and/or fitness for a particular purpose, with respect to such information and specifically disclaims all such warranties. Users are advised that decisions regarding drug therapy are complex medical decisions requiring the independent, informed decision of an appropriate health skin care specialist, and the information is provided for informational purposes only. The entire monograph for a drug should be reviewed for a thorough understanding of the drug's actions, uses and side effects. The [place] [employer] does not endorse or recommend the use of any drug.The information is not a substitute for medical care. AHFS?? Patient Medication Information?. ?? Copyright, 2023. The [employer]??, [address], [address], [place], [place]. All Rights Reserved. Duplication for commercial use must be authorized by [facility]. Selected Revisions: May 09, 2024. AHFS?? Patient Medication Information?. ?? Copyright, 2024 * [facility] - Yina Kruse RN - 06/25/2025 5:19 PM EDT Images from the original note were not included. [id number] Pulmonary Embolism (PE) A pulmonary embolus is most often due to a blood clot that develops in a deep vein of the leg (deepvein thrombosis). If that clot breaks loose and travels to the lung, it's called a pulmonary embolism (PE). This can cut off blood flow in the lungs. A blood clot in the lungs is a medical emergency and may cause . Healthcare providers use the term venous thromboembolism (VTE) to describe these 2 conditions: deepvein thrombosis and pulmonary embolism. They use the term VTE because the 2 conditions are very closely linked. And because their prevention and treatment are also closely linked. A pulmonary embolism occurs when a blood clot forms in a vein and travels to the lungs. How is pulmonary embolism diagnosed? Your healthcare provider examines you and asks about your symptoms and health history. You may alsohave one or more of the following: ? Blood tests to check for blood clotting or other problems ? Imaging tests to look for clots in the veins or lung ? Electrocardiography (ECG) to test how well the heart is working How is pulmonary embolism treated? ? Blood-thinning medicines (anticoagulants). These medicines thin the blood. They may be given as apill, as an injection, or through a tube into a vein (intravenous or IV). Blood thinners help prevent more blood clots from forming. They also help to prevent an existing clot from getting larger. ? Thrombolysis. Thrombolytic medicines are used to quickly dissolve a blood clot. A long, narrow tube (catheter) is used to deliver medicine directly to the clot. Thrombolytic medicines increase the risk of bleeding. So they are used very carefully. ? Inferior vena cava (IVC) filter surgery. The vena cava is the body?s largest vein. It carries blood from the body to the heart. A small filter traps blood clots in the lower body and prevents them from traveling to the lungs. The filter is inserted into the vein through a catheter. The filter maybe used if blood thinners can't be taken or if they don't work. ? Pulmonary embolectomy. This is a procedure to remove a blood clot in the lungs. It may be done with surgery or with a catheter inserted in the body. It may be done when other treatments aren't safeor don't work. What are the long-term concerns? With treatment, blood clots are often dissolved or removed. Some treatments can even help prevent future clots. But having a PE can put you at risk for another life-threatening blood clot. So, you will likely need to take anticoagulants to help keep blood clots from forming again. You may need to take this medicine for months or years. You may also need to make lifestyle changes. This may include getting more active and eating healthier. You may need to wear elastic (compression) stockings and take breaks on long trips. Call 911 Call 911 or get emergency help if you have: ? Heavy or uncontrolled bleeding ? Symptoms of a blood clot that has traveled to the lungs, including: o Chest pain o Trouble breathing o Coughing (may cough up blood) o Fainting o Fast heartbeat o Sweating When to call your healthcare provider Call your healthcare provider if you have swelling or pain in your leg, arm, or other area. These are symptoms of a blood clot. You may have bleeding if you take medicine to help prevent blood clots. Call your provider if you have symptoms of bleeding. This includes: ? Blood in your pee ? Bleeding with your poop (stool or bowel movements) ? Bleeding from the nose, gums, vagina, or a cut Last Reviewed Date: 2022 00:00:00 ?? [id number] [employer]. All rights reserved. This information is not intended as a substitute for professional medical care. Always follow your healthcare professional's instructions. * [facility] - Yina Kruse RN - 06/25/2025 5:19 PM EDT Images from the original note were not included. [id number] Discharge Instructions for Pulmonary Embolism A deep vein thrombosis (DVT) is a blood clot in a large vein deep in your leg, arm, or elsewhere inthe body. The clot can separate from the vein, travel to the lungs, and cut off blood flow. This kathy pulmonary embolism (PE). Pulmonary embolism is very serious and may cause if the clot is large or there are multiple clots. Home care Taking care of yourself is very important. To help prevent more blood clots from forming, follow your health care provider's instructions. ? Take your medicines exactly as instructed. Don?t skip doses. If you miss a dose, contact your provider and ask what you should do. ? Have all lab tests as recommended. This is very important when you take medicines to prevent blood clots. ? If your provider has instructed you to do so, wear compression stockings. ? Get up and get moving. ? While sitting for long periods of time, move your knees, ankles, feet, and toes. Lifestyle changes To help prevent problems with your heart and blood vessels, do the following: ? If you smoke, get help to quit. Talk with your health care provider about medicines and programs that can help. ? Stay at a healthy weight. If you are overweight, talk to your provider about losing weight. ? Try to exercise at least 30 minutes on most days. Before starting an exercise program, talk with your provider. ? When traveling by car, make frequent stops to get up and move around. ? On long airplane rides, get up and move around when possible. If you can?t get up, wiggle your toes, move your ankles, and tighten your calves to keep your blood moving. Follow-up care Make a follow-up appointment as directed. Have your lab work done as directed. When to call your doctor Call your health care provider or seek medical care right away if you have: ? Pain, swelling, and redness in your leg, arm, or other body area. These symptoms may mean anotherblood clot. ? Blood in your urine. ? Bleeding with bowel movements. ? Bleeding from the nose, gums, a cut, or vagina. Call 911 Call 911 if you have any of these symptoms of a blood clot in the lungs: ? Chest pain (usually worse with breathing) ? Trouble breathing or sudden shortness of breath ? Coughing (may cough up blood) ? Palpitations (racing heart) ? Sweating ? Fainting, dizziness, lightheadedness Also call 911 if you have heavy or uncontrolled bleeding. If you are taking a blood thinner, you have an increased chance of bleeding. Last Reviewed Date: 2024 00:00:00 ?? [id number] [employer]. All rights reserved. This information is not intended as a substitute for professional medical care. Always follow your healthcare professional's instructions. * La[facility] - Yina Kruse RN - 06/25/2025 5:19 PM EDT Images from the original note were not included. [id number] Lactulose WHY is this medicine prescribed? Lactulose is a synthetic sugar used to treat constipation. It is broken down in the colon into products that pull water out from the body and into the colon. This water softens stools. Lactulose is also used to reduce the amount of ammonia in the blood of patients with liver disease. It works by drawing ammonia from the blood into the colon where it is removed from the body. This medication is sometimes prescribed for other uses; ask your doctor or pharmacist for more information. HOW should this medicine be used? Lactulose comes as liquid to take by mouth. It usually is taken once a day for treatment of constipation and three or four times a day for liver disease. Your prescription label tells you how much medicine to take at each dose. Follow the directions on your prescription label carefully, and ask your doctor or pharmacist to explain any part you do not understand. Take lactulose exactly as directed. Do not take more or less of it or take it more often than prescribed by your doctor. What SPECIAL PRECAUTIONS should I follow? Before taking lactulose, ? tell your doctor and pharmacist if you are allergic to lactulose or any other drugs. ? Tell your doctor and pharmacist what prescription and nonprescription medications, vitamins, nutritional supplements, and herbal products you are taking or plan to take while taking lactulose. Yourdoctor may need to change the doses of your medications or monitor you carefully for side effects. ? The following nonprescription products may interact with lactulose: antacids, neomycin, and otherlaxatives. Be sure to let your doctor and pharmacist know that you are taking these medications before you start taking lactulose. Do not start any of these medications while taking lactulose withoutdiscussing with your healthcare provider. ? tell your doctor if you have diabetes or require a low-lactose diet. ? tell your doctor if you are , plan to become , or are breast- feeding. If you become while taking lactulose, call your doctor. ? if you are having surgery or tests on your colon or rectum, tell the doctor that you are taking lactulose. What should I do IF I FORGET to take a dose? Take the missed dose as soon as you remember it. However, if it is almost time for the next dose, skip the missed dose and continue your regular dosing schedule. Do not take a double dose to make up for a missed one. What SIDE EFFECTS can this medicine cause? If you have any of the following symptoms, stop taking lactulose and call your doctor immediately: ? stomach pain or cramps ? vomiting If you experience a serious side effect, you or your doctor may send a report to the Food and Drug Administration's (FDA) MedWatch Adverse Event Reporting program online (https://www.fda.gov/Safety/MedWatch) or by phone ( ). What should I know about STORAGE and DISPOSAL of this medication? Keep this medication in the container it came in, tightly closed, and out of reach of children. Store it at room temperature and away from excess heat and moisture (not in the bathroom). Dispose of unneeded medications in a way so that pets, children, and other people cannot take them.Do not flush this medication down the toilet. Use a medicine take-back program. Talk to your pharmacist about take-back programs in your community. Visit the FDA's Safe Disposal of Medicines website h ttps://goo.gl/c4Rm4p for more information. Keep all medication out of sight and reach of children as many containers are not child-resistant. Always lock safety caps. Place the medication in a safe location - one that is up and away and out of their sight and reach. https://www.upandaway.org What OTHER INFORMATION should I know? Keep all appointments with your doctor. To improve the taste of lactulose, mix your dose with one-half glass of water, milk, or fruit juice. Do not let anyone else take your medicine. Ask your pharmacist any questions you have about refilling your prescription. Keep a written list of all of the prescription and nonprescription (ppgg-kza-hzsimvv) medicines, vitamins, minerals, and dietary supplements you are taking. Bring this list with you each time you visit a doctor or if you are admitted to the hospital. You should carry the list with you in case of rogelio rgencies. Brand Name(s): ? Cholac?? ? Constilac?? Syrup ? Constulose?? ? Enulose?? ? Evalose?? Syrup?? ? Generlac?? ? Heptalac? Kristalose? Laxilose? Portalac? also available generically ?? This branded product is no longer on the market. Generic alternatives may be available. This report on medications is for your information only, and is not considered individual patient advice. Because of the changing nature of drug information, please consult your physician or pharmacist about specific clinical use. The [employer] represents that the information provided hereunder was formulated with a reasonable standard of care, and in conformity with professional standards in the field. The [employer] makes no representations or warranties, express or implied, including, but not limited to, any implied warranty of merchantability and/or fitness for a particular purpose, with respect to such information and specifically disclaims all such warranties. Users are advised that decisions regarding drug therapy are complex medical decisions requiring the independent, informed decision of an appropriate health skin care specialist, and the information is provided for informational purposes only. The entire monograph for a drug should be reviewed for a thorough understanding of the drug's actions, uses and side effects. The [employer] does not endorse or recommend the use of any drug.The information is not a substitute for medical care. AHFS?? Patient Medication Information?. ?? Copyright, 2023. The [employer]??, [address], [address], [place], [place]. All Rights Reserved. Duplication for commercial use must be authorized by [facility]. Selected Revisions: December 04, 2023. AHFS?? Patient Medication Information?. ?? Copyright, 2024 * [facility] - Yina Kruse RN - 06/25/2025 5:19 PM EDT Images from the original note were not included. [id number] Orchitis Orchitis is inflammation of the testicles. It usually only affects one testicle. Orchitis may be caused by: ? Epididymitis. The epididymis is the duct that carries semen out of the testicle to the urethra (tract that passes urine). If it gets infected, bacteria can spread to the testicle. A common cause ofepididymitis and orchitis is sexually transmitted infections (STIs), such as gonorrhea or chlamydia. Other types of infections can also cause epididymitis, especially in people older than age 40. ? Prostate infection. The prostate gland surrounds a part of the urethra. An infection in the prostate gland can spread to the testicle. ? Bacterial infections. Common causes of bacterial orchitis include E. coli (Escherichia coli), Klebsiella pneumoniae, Pseudomonas aeruginosa, staph (staphylococcus), and strep (streptococcus). ? Mumps. This is the most common virus that can cause orchitis. About one-third of people older than age 10 with mumps will get mumps orchitis. About one-third of orchitis infections lead to shrinking of the affected testicle. In rare cases, inability to have children (infertility) can occur. This occurs only if both testicles are affected. ? Other causes. Some bacteria and fungus that aren't as common can cause orchitis in people with weakened immune systems (immunocompromised). What are the risk factors for orchitis? The risk factors include: ? A history of epididymitis. ? Unprotected sex. ? Multiple sex partners. ? Long-term use of a Martinez catheter. ? Bladder outlet obstruction. ? A structural abnormality. ? Surgery of the urinary tract (genitourinary surgery). ? Not having the MMR vaccine (it reduces the risk of developing orchitis after mumps). What are the symptoms of orchitis? The possible symptoms include: ? Pain and tenderness in the testicle. ? Fever. ? Pain with urination. ? Pain with intercourse or ejaculation. ? Groin pain. ? Scrotal swelling. ? The skin of the scrotum may become red or purplish. ? Blood in the semen. ? Swollen lymph nodes in the groin. How is orchitis diagnosed? Your health care provider will do a physical exam. This is to check for enlarged or tender testicles, prostate gland, or lymph nodes on the affected side. To check the prostate, the provider will do a rectal exam. This is done by inserting a gloved finger into the rectum. You will also have an ultrasound. This is to rule out a condition called testicular torsion. It hassymptoms that are similar to orchitis. It occurs when the spermatic cord gets twisted. The spermatic cord is a network of nerves and blood vessels that runs into each testicle. This condition can affect your fertility if it cuts off blood flow to your testicles. So it needs to be treated right away. A urethral swab and urine sample may be taken to check for a urinary tract infection and for STIs. How is it treated? To treat bacterial orchitis, you will be prescribed antibiotics for 10 to 14 days. Treatment for viral (mumps) orchitis is aimed at symptom relief only. This is because antibiotics don't work for viruses. It often takes 1 to 3 weeks for mumps orchitis to go away. Home care These guidelines will help you care for yourself at home: ? If you were given antibiotics, take them all as prescribed. It's important to finish them, even if you're feeling better. ? You may use aefq-qqw-kznonzf medicines to control pain, unless you were given another medicine. If you have chronic liver or kidney disease or have ever had a stomach ulcer or digestive tract bleeding, talk with your health care provider before using these medicines. Also talk with your provider if you take other medicines. ? Elevate your scrotum. Use snug-fitting briefs or an athletic supporter. ? To help with pain and swelling, place an ice pack over the scrotum. Do this for no more than 20 minutes every 3 to 6 hours during the first 24 to 48 hours. Then keep using ice packs as needed for pain and swelling. To make an ice pack, put ice cubes in a plastic bag that seals at the top. Wrap the bag in a thin towel. Don't put ice or an ice pack directly on the skin. ? Tell your partner if you have a STI. If you have an STI, your partner will need treatment too. Follow-up care Follow up with your health care provider after you finish all of your antibiotics, or as advised. If a swab or urine sample was taken, call as directed for the results. Use condoms or don't have sex until you get the results. If you have an STI, continue this protection until both you and your sexual partner finish treatment. What are the complications? Other complications of orchitis are rare but can include: ? Infertility. ? Epididymitis. ? Testicular atrophy (shrinkage of testis). ? Testicular abscess. Call 911 Call 911 if you have: ? Weakness, dizziness, or fainting. When to get medical advice Contact your health care provider right away if you have: ? Continued nausea or vomiting. ? Trouble passing urine. ? A fever of 100.4??F (38??C) or higher, or as advised by your provider. ? Increasing pain and swelling in one or both testicles. Last Reviewed Date: 2025 00:00:00 ?? [id number] [employer]. All rights reserved. This information is not intended as a substitute for professional medical care. Always follow your healthcare professional's instructions. * Laury OnMIR[facility] - Uriah Yina Lise, RN - 06/25/2025 5:19 PM EDT Images from the original note were not included. [id number] Preventing a Surgical Site Infection A risk of any surgery is an infection at the surgical site. The surgical site is a cut the surgeon makes in the skin to do the surgery. Surgical site infections can range in type. It may be a minor skin infection. Or it may be severe and include tissue under the skin or other organs. In some cases,a severe infection can cause . The information below tells you: ? About surgical site infections. ? What hospitals do to prevent them. ? How they?re treated if they do occur. ? What you can do to prevent an infection. Hand washing reduces the risk of infection. What causes a surgical site infection? Germs are everywhere. They?re on your skin, in the air, and on things you touch. Many germs are good. Some are harmful. Surgical site infections occur when harmful germs enter your body through the incision in your skin. Some infections are caused by germs that are in the air or on objects. But most are caused by germs found on and in your own body. Who is at risk for a surgical site infection? Anyone can have a surgical site infection. Your risk is higher if you: ? Are an older adult. ? Have a weak immune system. ? Have other health conditions such as diabetes. ? Take certain medicines, such as steroids. ? Are a smoker. ? Have certain types of surgery, such as abdominal surgery. ? Have poor nutrition. ? Are very overweight. ? Have a surgery that lasts longer than 2 hours. What are the symptoms of a surgical site infection? An infection often shows up as skin redness, pain, and swelling around the incision that gets worse. Later, a cloudy or greenish-yellow fluid may come from the incision. The fluid may smell bad. The incision may pull apart or open up. You are likely to have a fever and may feel very ill. Symptoms can appear at any time. They may happen from hours to weeks after surgery. Implants such as an artificial knee or hip can become infected at any time after the surgery. How is a surgical site infection treated? ? A surgical site infection is treated with antibiotics. The type of medicine you get will depend on what may be causing the infection. Most serious wound infections need wound care. In some cases, surgery may be needed on the infected wound. ? An infected skin wound may be reopened and cleaned. A deep wound may need to be packed with gauze. The gauze is changed often until the wound starts to heal from the inside out. Your health care provider will decide the best way to treat your infection. ? If an infection occurs where an implant is placed, the implant may be removed. ? If you have an infection deeper in your body, you may need surgery to treat it. What hospitals do to prevent surgical site infections Many hospitals take these steps to help prevent surgical site infections: ? Handwashing. Before the surgery, your surgeon and all surgery staff scrub their hands and arms with an antiseptic soap. ? Clean skin. The site where your incision is made is carefully cleaned with an antiseptic solution. ? Sterile clothing and drapes. The surgical team wears medical uniforms. These are known as scrub suits. They wear long-sleeved surgical gowns, masks, caps, shoe covers, and sterile gloves. Your bodyis fully covered with a large sterile sheet (sterile drape). There is an opening in the sheet wherethe incision is made. ? Clean air. Operating rooms have special air filters. They use positive pressure airflow to prevent unfiltered air from entering the room. ? Careful use of antibiotics. Antibiotics are given no more than 60 minutes before the incision is made. They are generally stopped within 24 hours after surgery. This depends on the type of surgery.This helps kill germs but prevents problems that can occur when antibiotics are taken longer. ? Controlled blood sugar levels. Your blood sugar level may rise. This can be because of the stressof the surgery. Your blood sugar level is watched closely to make sure it stays within a normal range. High blood sugar delays wound healing. This increases the risk of infection. ? Controlled body temperature. A awtxp-alub-hxuyiz temperature during or after surgery prevents oxygen from reaching the wound. This makes it harder for your body to fight infection. Hospitals may warm I.V. fluids, and provide warm-air blankets. Your temperature is watched throughout the surgery. ? Safe hair removal. Any hair that must be removed is clipped right before the incision, not shavedwith a razor. This prevents tiny nicks and cuts where germs can enter. ? Wound care. After surgery, a closed wound is covered with a sterile dressing for 1 to 2 days. Open wounds are packed with sterile gauze and covered with a sterile dressing. What you can do to prevent a surgical site infection ? Ask questions. Learn what your hospital is doing to prevent infection. ? If instructed, shower or bathe with plain soap the night before and the day of your surgery. Follow all instructions you're given. You may be asked to use a special cleanser that you don?t rinse off. ? If you smoke, stop as long as possible before and after the surgery. Ask your provider about waysto quit. ? Take antibiotics only when your provider tells you to. Using antibiotics when they?re not needed can create germs that are harder to kill. Finish the entire prescription of your antibiotics even ifyou feel better. ? Ask health care workers to clean their hands with plain soap and water or with an alcohol-based hand group underwriter before and after caring for you. Don?t be afraid to remind them. ? After surgery, eat healthy foods. Care for your incision as directed by your health care team. When to contact your doctor Contact your provider or seek medical care right away if: ? The pain at the surgical site gets worse. ? A red streak, worse redness, or puffiness appears near the incision. ? Yellowish, cloudy, or bad-smelling fluid leaks from the incision. ? Your stitches dissolve before the wound heals. ? You have a fever of 100.4?? F ( 38??C ) or higher, or as advised by your provider. ? You have a tired feeling that doesn?t go away. Last Reviewed Date: 2024 00:00:00 ?? [id number] [employer]. All rights reserved. This information is not intended as a substitute for professional medical care. Always follow your healthcare professional's instructions. * Laury [facility]orio[facility] - Yina Kruse RN - 06/25/2025 5:19 PM EDT Images from the original note were not included. [id number] Acetaminophen IMPORTANT WARNING: Taking too much acetaminophen can cause liver damage, sometimes serious enough to require liver transplantation or cause . You might accidentally take too much acetaminophen if you do not followthe directions on the prescription or package label carefully, or if you take more than one productthat contains acetaminophen. To be sure that you take acetaminophen safely, you should ? not take more than one product that contains acetaminophen at a time. Read the labels of all the prescription and nonprescription medications you are taking to see if they contain acetaminophen. Beaware that abbreviations such as APAP, AC, Acetaminophen, Acetaminoph, Acetaminop, Acetamin, or Acetam. may be written on the label in place of the word acetaminophen. Ask your doctor or pharmacist if you don't know if a medication that you are taking contains acetaminophen. ? take acetaminophen exactly as directed on the prescription or package label. Do not take more acetaminophen or take it more often than directed, even if you still have fever or pain. Ask your doctor or pharmacist if you do not know how much medication to take or how often to take your medication.Call your doctor if you still have pain or fever after taking your medication as directed. ? be aware that you should not take more than 4000 mg of acetaminophen per day. If you need to takemore than one product that contains acetaminophen, it may be difficult for you to calculate the total amount of acetaminophen you are taking. Ask your doctor or pharmacist to help you. ? tell your doctor if you have or have ever had liver disease. ? not take acetaminophen if you drink three or more alcoholic drinks every day. Talk to your doctorabout the safe use of alcohol while you are taking acetaminophen. ? stop taking your medication and call your doctor right away if you think you have taken too much acetaminophen, even if you feel well. Talk to your pharmacist or doctor if you have questions about the safe use of acetaminophen or acetaminophen-containing products. WHY is this medicine prescribed? Acetaminophen is used to relieve mild to moderate pain from headaches, muscle aches, menstrual periods, colds and sore throats, toothaches, backaches, reactions to vaccinations (shots), and to reducefever. Acetaminophen may also be used to relieve the pain of osteoarthritis (arthritis caused by the breakdown of the lining of the joints). Acetaminophen is in a class of medications called analgesics (pain relievers) and antipyretics (fever reducers). It works by changing the way the body senses pain and by cooling the body. HOW should this medicine be used? Acetaminophen comes as a tablet, chewable tablet, capsule, suspension or solution (liquid), extended-release (long-acting) tablet, and orally disintegrating tablet (tablet that dissolves quickly in the mouth), to take by mouth, with or without food. Acetaminophen is available without a prescription, but your doctor may prescribe acetaminophen to treat certain conditions. Follow the directions on the package or prescription label carefully, and ask your doctor or pharmacist to explain any part you do not understand. If you are giving acetaminophen to your child, read the package label carefully to make sure that it is the right product for the age of the child. Do not give children acetaminophen products that are made for adults. Some products for adults and older children may contain too much acetaminophen for a younger child. Check the package label to find out how much medication the child needs. If you know how much your child weighs, give the dose that matches that weight on the chart. If you don't know your child's weight, give the dose that matches your child's age. Ask your child's doctor if you don't know how much medication to give your child. Acetaminophen comes in combination with other medications to treat cough and cold symptoms. Ask your doctor or pharmacist for advice on which product is best for your symptoms. Check nonprescription cough and cold product labels carefully before using two or more products at the same time. These products may contain the same active ingredient(s) and taking them together could cause you to receivean overdose. This is especially important if you will be giving cough and cold medications to a child. Swallow the extended-release tablets whole; do not split, chew, crush, or dissolve them. Place the orally disintegrating tablet ('Meltaways') in your mouth and allow it to dissolve, or chew it before swallowing. Shake the suspension well before each use to mix the medication evenly. Always use the measuring cup or syringe provided by the paving supervisor to measure each dose of the solution or suspension. Do notswitch dosing devices between different products; always use the device that comes in the product packaging. Stop taking acetaminophen and call your doctor if your symptoms get worse, you develop new or unexpected symptoms, including redness or swelling, your pain lasts for more than 10 days, or your fever gets worse or lasts more than 3 days. Also stop giving acetaminophen to your child and call your child's doctor if your child develops new symptoms, including redness or swelling, or if your child's pain lasts for longer than 5 days, or if a fever gets worse or lasts longer than 3 days. Do not give acetaminophen to a child who has a sore throat that is severe or does not go away, or that occurs along with fever, headache, rash, nausea, or vomiting. Call the child's doctor right away, because these symptoms may be signs of a more serious condition. Are there OTHER USES for this medicine? Acetaminophen may also be used in combination with aspirin and caffeine to relieve the pain associated with migraine headache. This medication is sometimes prescribed for other uses; ask your doctor or pharmacist for more information. What SPECIAL PRECAUTIONS should I follow? Before taking acetaminophen, ? tell your doctor and pharmacist if you are allergic to acetaminophen, any other medications, or any of the ingredients in the product. Ask your pharmacist or check the label on the package for a list of ingredients. ? tell your doctor and pharmacist what prescription and nonprescription medications, vitamins, nutritional supplements, or herbal products you are taking or plan to take while taking acetaminophen. Your doctor may need to change the doses of your medications or monitor you carefully for side effects. ? The following nonprescription products may interact with acetaminophen: medications for pain, coughs, fever, and colds. Be sure to let your doctor and pharmacist know that you are taking these medications before you start taking acetaminophen. Do not start any of these medications while taking acetaminophen without discussing with your healthcare provider. ? tell your doctor if you have ever developed a rash after taking acetaminophen. ? tell your doctor if you are , plan to become , or are breast- feeding. If you become while taking acetaminophen, call your doctor. ? if you drink three or more alcoholic beverages every day, do not take acetaminophen. Ask your doctor or pharmacist about the safe use of alcoholic beverages while taking acetaminophen. ? you should know that combination acetaminophen products for cough and colds that contain nasal decongestants, antihistamines, cough suppressants, and expectorants should not be used in children younger than 2 years of age. Use of these medications in young children can cause serious and life-threatening effects or . In children 2 through 11 years of age, combination cough and cold productsshould be used carefully and only according to the directions on the label. ? if you have phenylketonuria (PKU, an inherited condition in which a special diet must be followedto prevent damage to your brain that can cause severe intellectual disability), you should know that some brands of acetaminophen chewable tablets may be sweetened with aspartame, a source of phenylalanine. What SPECIAL DIETARY instructions should I follow? Unless your doctor tells you otherwise, continue your normal diet. What should I do IF I FORGET to take a dose? This medication is usually taken as needed. If your doctor has told you to take acetaminophen regularly, take the missed dose as soon as you remember it. However, if it is almost time for the next dose, skip the missed dose and continue your regular dosing schedule. Do not take a double dose to make up for a missed one. What SIDE EFFECTS can this medicine cause? Some side effects can be serious. If you experience any of the following symptoms, stop taking acetaminophen and call your doctor immediately or get emergency medical attention: ? red, peeling or blistering skin ? rash ? hives ? itching ? swelling of the face, throat, tongue, lips, eyes, hands, feet, ankles, or lower legs ? hoarseness ? difficulty breathing or swallowing Acetaminophen may cause other side effects. Call your doctor if you have any unusual problems whileyou are taking this medication. If you experience a serious side effect, you or your doctor may send a report to the Food and Drug Administration's (FDA) MedWatch Adverse Event Reporting program online (https://www.fda.gov/Safety/MedWatch) or by phone ( ). What should I know about STORAGE and DISPOSAL of this medication? Keep this medication in the container it came in, tightly closed, and out of reach of children. Store it at room temperature and away from excess heat and moisture (not in the bathroom). Keep all medication out of sight and reach of children as many containers are not child-resistant. Always lock safety caps. Place the medication in a safe location - one that is up and away and out of their sight and reach. https://www.[employer].org Dispose of unneeded medications in a way so that pets, children, and other people cannot take them.Do not flush this medication down the toilet. Use a medicine take-back program. Talk to your pharmacist about take-back programs in your community. Visit the FDA's Safe Disposal of Medicines website h ttps://goo.gl/c4Rm4p for more information. What should I do in case of OVERDOSE? In case of overdose, call the poison control helpline at . Information is also available online at https://www.poisonhelp.org/help. If the victim has collapsed, had a seizure, has trouble breathing, or can't be awakened, immediately call emergency services at 388. If someone takes more than the recommended dose of acetaminophen, get medical help immediately, even if the person does not have any symptoms. Symptoms of overdose may include the following: ? nausea ? vomiting ? loss of appetite ? sweating ? extreme tiredness ? unusual bleeding or bruising ? pain in the upper right part of the stomach ? yellowing of the skin or eyes ? flu-like symptoms What OTHER INFORMATION should I know? Before having any laboratory test, tell your doctor and the laboratory personnel that you are taking acetaminophen. Ask your pharmacist any questions you have about acetaminophen. Keep a written list of all of the prescription and nonprescription (zyjd-lql-fxrhkpw) medicines, vitamins, minerals, and dietary supplements you are taking. Bring this list with you each time you visit a doctor or if you are admitted to the hospital. You should carry the list with you in case of rogelio rgencies. Brand Name(s): ? Actamin?? ? Feverall?? ? Panadol?? ? Tempra Quicklets?? ? Tylenol?? ? Dayquil?? (as a combination product containing Acetaminophen, Dextromethorphan, Pseudoephedrine) ? NyQuil Cold/Flu Relief?? (as a combination product containing Acetaminophen, Dextromethorphan, Doxylamine) ? Percocet?? (as a combination product containing Acetaminophen, Oxycodone) APAP, R-nkehlg-rvgg-aminophenol, Paracetamol This report on medications is for your information only, and is not considered individual patient advice. Because of the changing nature of drug information, please consult your physician or pharmacist about specific clinical use. The [employer] [employer] represents that the information provided hereunder was formulated with a reasonable standard of care, and in conformity with professional standards in the field. The [employer] makes no representations or warranties, express or implied, including, but not limited to, any implied warranty of merchantability and/or fitness for a particular purpose, with respect to such information and specifically disclaims all such warranties. Users are advised that decisions regarding drug therapy are complex medical decisions requiring the independent, informed decision of an appropriate health skin care specialist, and the information is provided for informational purposes only. The entire monograph for a drug should be reviewed for a thorough understanding of the drug's actions, uses and side effects. The [employer] does not endorse or recommend the use of any drug.The information is not a substitute for medical care. AHFS?? Patient Medication Information?. ?? Copyright, 2023. The [employer]??, [address], [address], [place], [place]. All Rights Reserved. Duplication for commercial use must be authorized by [facility]. Selected Revisions: August 04, 2023. AHFS?? Patient Medication Information?. ?? Copyright, 2024 * Discharge Summary - Bianka Hansen MD - 06/25/2025 4:15 PM EDT Hospitalization Admit Date/Time: 06/12/2025 10:20 AM Admitting Attending: Dyllan Paul Discharge Date: 06/25/25 Discharge Attending Physician: Dyllan Paul MD PCP name and Address: Murray Prajapati MD [address] [place] [address] [address] / [place] [address] Referring provider name and address: No referring provider defined for this encounter. Chief Concern, Brief History of Present Illness, and Hospital Course Eber Lowe is a 70 y.o. male with PMH unfavorable intermediate risk prostate cancer, GG3 diffusely on the left, PSA 4.7 who presented to [facility] ED for planned surgical intervention. They weretaken to the operating room on 06/12/25 for planned radical robotic-assisted prostatectomy and bilateral pelvic lymph node dissection, complicated by bleeding requiring exploratory laparotomy, blood transfusion, and pressor support. Bleeding source identified and treated. The patient was subsequently extubated and transferred to the ICU for recovery. ICU course complicated by acute hepatic encephalopathy and decompensated alcohol induced cirrhosis, requiring more time in the ICU. After recovery,the patient was transferred to the floor. It was felt that the patient had reached maximal benefit from hospitalization. They were deemed appropriate for discharge to home. On the day of discharge the patient's pain was controlled on oral medications, they were ambulating, voiding appropriately, passing flatus, and tolerating oral intake. Pt was provided with paper prescription for outpatient PT / OT. The patient was discharged on 06/25/25 to home and will return to clinic in 2-[address] Dr. Paul. Prostate CA - 06/12: robot-assisted radical prostatectomy, complicated by severed umbilical vein, 1.3L blood loss - Management per primary (Urology) Hypernatremia - Na 151 (06/17) -> 146 (06/18) has been receiving free water flushes per ICU - Urine Sodium, urine creatinine, and osmolality ordered - Serum osmolality ordered - Encourage gentle hydration now that patient has PO diet as patient remains to have 2.5 L free water deficit at this time Acute Encephalopathy likely 2/2 Hypoactive Hospital/ICU Delirium - Patient was placed in mitts overnight. Alert and oriented x3 when seen this afternoon. - Etiology: hypoactive delirium, hepatic encephalopathy, uremia, low clearance of renal and hepaticfunction - CT head Negative for acute abnormality - Ammonia elevated 137. Lactulose started, mentation reportedly improved. - Low concern for infectious due to current abx - UA with reflex micro ordered - CMP, PT/INR ordered - BG venous ordered - Lactulose 10 GM/15ML daily (although no history of hepatic encephalopathy) - Cystatin C ordered Leukocytosis, likely reactive -Multifactorial etiology in setting of recent surgery - Pancultures MURF and BC NGTD, Procal 1.99 - Recently completed course of Linezolid - No acute concern for active infection at this time Cirrhosis of liver (CMS/HCC) MELD 3.0: 26 at 06/14/2025 12:41 AM MELD-Na: 25 at 06/14/2025 12:41 AM Calculated from: Serum Creatinine: 2.36 mg/dL at 06/14/2025 12:41 AM Serum Sodium: 141 mmol/L (Using max of 137 mmol/L) at 06/14/2025 12:41 AM Total Bilirubin: 2.8 mg/dL at 06/12/2025 9:27 PM Serum Albumin: 2.6 g/dL at 06/13/2025 3:35 PM INR(ratio): 1.8 at 06/12/2025 9:27 PM Age at listing (hypothetical): 70 years Sex: Male at 06/14/2025 12:41 AM Possible History of hepatic encephalopathy Possible history of SBP Esophageal varices -EGD 08/13: gr1 ev; moderate PHG no focal liver lesion; Takes Coreg daily Hyperbilirubinemia - T bili 3.7 in setting AUD related cirrhosis - Monitor with daily labs Evaluated by transplant clinic. Not currently listed for transplant Alcohol Use Disorder -03/28: Reports he is abstinent for 3-4months, then resumes occasional alcohol around 2-3 glasses of wine a few times a week to 2 shots of bourbon a few times a week, last drink about a week ago. - Monitor liver function with daily labs - CIWA discontinued, last drink 06/04 per pt report - Continue Folate - Continue PO Thiamine - PETH: 260 was 316 on 03/28/2025. Renal calculi, asymptomatic - Monitor kidney function with daily labs Chronic Medical Conditions: Obesity - Complicates all aspects of care. HLD - resume home statin as able HTN - continue home carvedilol Surgeries and Procedures Procedures performed in this encounter Procedures Critical Care Critical Care Critical Care Critical Care Critical Care Critical Care Critical Care PROSTATECTOMY, RADICAL, ROBOT-ASSISTED (N/A) Medication List .. acetaminophen 500 MG tablet Commonly known as: Tylenol Take 2 tablets by mouth every 8 hours as needed for pain. atorvastatin 10 MG tablet Commonly known as: Lipitor Take 1 tablet by mouth daily. carvedilol 3.125 MG tablet Commonly known as: Coreg Take 1 tablet by mouth 2 times a day. enoxaparin 120 MG/0.8ML solution prefilled syringe Commonly known as: Lovenox Inject 0.8 mL under the skin every 12 hours. furosemide 40 MG tablet Commonly known as: Lasix Take 1 tablet by mouth 2 times a day. ibuprofen 400 MG tablet Take 2 tablets by mouth every 6 hours as needed for moderate pain. lactulose 10 GM/15ML solution Commonly known as: Chronulac Take 15 mL by mouth daily. Start taking on: June 26, 2025 methocarbamol 750 MG tablet Commonly known as: Robaxin Take 1 tablet by mouth 4 times a day as needed for muscle spasms. fhxkykjjqulw-ixii-wgrkzvzm-folic acid chewable tablet Chew 1 tablet daily. potassium chloride CR 10 MEQ ER tablet Commonly known as: Klor-Con Take 1 tablet by mouth daily. Do not crush, chew, or split. tamsulosin 0.4 MG 24 hr capsule Commonly known as: Flomax Take 1 capsule by mouth 1 time each day with dinner. Vitamin E 450 MG (1000 UT) capsule Take 1,000 Units by mouth 1 (one) time each day. Where to Get Your Medications These medications were sent to [facility] - [place], [place] - [address] [facility] [address] acetaminophen 500 MG tablet enoxaparin 120 MG/0.8ML solution prefilled syringe ibuprofen 400 MG tablet lactulose 10 GM/15ML solution methocarbamol 750 MG tablet tamsulosin 0.4 MG 24 hr capsule Discharge Diagnosis Medical Problems Active and Resolved Hospital Problems Hospital Severe obesity (BMI 35.0-39.9) with comorbidity (CMS/HCC) * (Principal) Prostate CA (CMS/HCC) Anemia Overview Addendum 06/18/2025 9:35 AM by Lillian Carrera PA Lab Results Component Value Date HGB 12.0 (L) 06/17/2025 , Lab Results Component Value Date HCT 35.2 (L) 06/17/2025 Stable Will continue to monitor Transfuse as appropriate for Hgb>8 Iron, Folate, B12 as appropriate Hyperlipidemia Leukocytosis Cirrhosis of liver (CMS/HCC) Hyperbilirubinemia Overview Signed 06/12/2025 10:08 PM by Raymond Katz APRN T bili 3.7 In setting of AUD related cirrhosis Monitor with daily labs Esophageal varices Overview Signed 06/12/2025 10:09 PM by Raymond Katz APRN EGD 08/13: gr1 ev; moderate PHG no focal liver lesion Takes Coreg daily Restart home medication when appropriate Renal calculi Overview Signed 06/12/2025 10:13 PM by Raymond Katz APRN Resume home medications when appropriate Monitor kidney function with daily labs Hypertension Overview Signed 06/12/2025 10:15 PM by Raymond Katz APRN Resume home medications as appropriate Alcohol use disorder Overview Signed 06/12/2025 10:18 PM by Raymond Katz APRN 03/28: Reports he is abstinent for 3-4months, then resumes occasional alcohol around 2-3 glasses of wine a few times a week to 2 shots of bourbon a few times a week, last drink about a week ago. Monitor liver function with daily labs SCC (squamous cell carcinoma), leg, left Overview Signed 06/12/2025 10:20 PM by Raymond Katz APRN Skin biopsy in March 2025 confirmed SCC of left leg Continue to monitor Electrolyte abnormality Overview Signed 06/12/2025 10:22 PM by Raymond Katz APRN Replace per ICU sliding scale protocol. Hypernatremia Altered mental state Acute pulmonary embolism (CMS/HCC) RESOLVED: On mechanically assisted ventilation (CMS/HCC) RESOLVED: Hypotension RESOLVED: Hypocalcemia RESOLVED: Metabolic encephalopathy Post Discharge Instructions Medications: - You should take 500mg Tylenol every 6 hours for mild - moderate pain. You may take up to 1000mg every 6 hours but do not take more than 4000mg in a day. - You should take 500mg methocarbamol 4 times per day for muscle spasms. - You have been prescribed pain medications to be taken as needed for severe pain. - You should take the stool softener prescribed as long as you are taking narcotics. - You may resume your previous medications unless otherwise instructed. Nutrition: - You may resume your normal diet as tolerated, focusing on liquids to keep yourself hydrated. Activity: - Walking and climbing stairs is ok and encouraged. You should refrain from any strenuous activity/exercise until your follow up appointment. - No lifting anything >10lbs (approximately a gallon of milk) for the next 6 weeks. - You may not drive for 24 hours after surgery, or while taking narcotics Incision: - A special skin glue is used to close and cover your incision. Do not pick it off, it will fall ofon its own after approximately 2 weeks. - You have beba across your incision. These will be removed in clinic at your follow up appointment. - You should try to keep your incisions as clean and dry as possible - You may shower. Let the soapy water run over your incisions. Do not scrub at your incisions. After you shower, pat your incisions dry with a clean towel. - Do NOT soak your incisions, or take a tub bath for 2 weeks. Potential Issues: - It is normal to have some pain and soreness, especially around the incisions. - A small amount of clear drainage from the incision may be expected, call the office if the drainage becomes bloody, purulent (pus), or foul-smelling - Call the office if you start to have increased redness, drainage, swelling, or increased pain around your incision - Call the office if you have a fever greater than 101 F - Call the office if you have severe abdominal discomfort, nausea and vomiting, or feeling unwell Medications: - Start taking Lovenox 120 mg twice daily for 3 months. You will follow up with a Primary Care Provider to manage. Follow Up: - You will be contacted by the clinic for a follow up appointment in approximately 2-3 weeks with aCT Urogram. Questions or Concerns and Appointments (physicians work at both clinics so confirm your location ahead of your appointment) [facility] Urology Department Clinic [facility] [address], [facility], [facility], [address] [place] [address] Clinic After Hours [facility] Multid[facility] Urology Clinic [address] [place] [address] Clinic Outpatient Follow-Up No future appointments. Test Results Pending At Discharge Pending Labs Order Current Status Calculi (Stone) Analysis In process Blood Culture (Aerobic/Anaerobet Set) Preliminary result Pertinent Physical Exam At Time of Discharge Physical Exam Constitutional: Appearance: Normal appearance. Eyes: Extraocular Movements: Extraocular movements intact. Cardiovascular: Rate and Rhythm: Normal rate and regular rhythm. Pulmonary: Effort: Pulmonary effort is normal. No respiratory distress. Genitourinary: Comments: Scrotal swelling with scant yellow drainage. Bladder stone voided spontaneously by patient. Musculoskeletal: General: Normal range of motion. Cervical back: Normal range of motion. Skin: General: Skin is warm and dry. Neurological: Mental Status: He is alert and oriented to person, place, and time. Mental status is at baseline. Psychiatric: Mood and Affect: Mood normal. Behavior: Behavior normal. Thought Content: Thought content normal. Discharge Disposition/Condition Disposition: Home with Home Health Condition: Stable (s/sx potential problems absent or manageable) Mariely Olson, MS4 I saw and evaluated the patient with the medical student and have made edits to the documentation above as needed. Bianka Hansen MD Department of Urology, PGY-1 Pager: [phone] I spent >30 minutes of patient care and instruction time in preparation for this discharge. Cosigned by Dyllan Paul MD at 06/29/2025 10:31 AM EDT * Care Plan - Jeff Gómez RN - 06/25/2025 2:42 PM EDT Problem: Adult Inpatient Plan of Care Goal: Plan of Care Review Outcome: Ongoing, Progressing Goal: Patient-Specific Goal (Individualized) Outcome: Ongoing, Progressing Goal: Absence of Hospital-Acquired Illness or Injury Outcome: Ongoing, Progressing Goal: Optimal Comfort and Wellbeing Outcome: Ongoing, Progressing Goal: Readiness for Transition of Care Outcome: Ongoing, Progressing Problem: Infection Goal: Absence of Infection Signs and Symptoms Outcome: Ongoing, Progressing Problem: Skin Injury Risk Increased Goal: Skin Health and Integrity Outcome: Ongoing, Progressing Problem: Fall Injury Risk Goal: Absence of Fall and Fall-Related Injury Outcome: Ongoing, Progressing Problem: Self-Care Deficit Goal: Improved Ability to Complete Activities of Daily Living Outcome: Ongoing, Progressing Problem: Wound Goal: Optimal Wound Healing Outcome: Ongoing, Progressing Goal: Optimal Coping Outcome: Ongoing, Progressing Goal: Optimal Functional Ability Outcome: Ongoing, Progressing Goal: Absence of Infection Signs and Symptoms Outcome: Ongoing, Progressing Goal: Improved Oral Intake Outcome: Ongoing, Progressing Goal: Optimal Pain Control and Function Outcome: Ongoing, Progressing Goal: Skin Health and Integrity Outcome: Ongoing, Progressing Problem: Radical Prostatectomy Goal: Optimal Coping Outcome: Ongoing, Progressing Goal: Absence of Bleeding Outcome: Ongoing, Progressing Goal: Effective Bowel Elimination Outcome: Ongoing, Progressing Goal: Fluid and Electrolyte Balance Outcome: Ongoing, Progressing Goal: Absence of Infection Signs and Symptoms Outcome: Ongoing, Progressing Goal: Anesthesia/Sedation Recovery Outcome: Ongoing, Progressing Goal: Optimal Pain Control and Function Outcome: Ongoing, Progressing Goal: Nausea and Vomiting Relief Outcome: Ongoing, Progressing Goal: Effective Oxygenation and Ventilation Outcome: Ongoing, Progressing Goal: Effective Urinary Elimination Outcome: Ongoing, Progressing * Progress Notes - Carol Lott I - 06/25/2025 1:18 PM EDT Physical Therapy Treatment Patient Name: Eber Lowe Today's Date: 06/25/2025 PT Discharge Recommendations: Home with 24 hour assistance, Home health PT, Home health OT Equipment Recommended: Rolling walker Subjective Patient agreeable to PT session. Patient reports improvement in cognation and alertness today. I feel almost 100% better. Participants in Care Family/Caregiver Present: Yes Family/Caregiver: Spouse Presentation Oxygen Therapy: None (Room air) O2 Delivery Method: Nasal cannula O2 Flow Rate (L/min): 4 L/min Lines and Tubes: Intravenous access Pre-Session: Supine, Head of bed elevated, Lines intact Pre-Session Comments: RN consent to session Post-Session: Sitting in chair, RN notified, Lines intact, Call light in reach, Chair alarm Post-Session Comments: Pt positioned for comfort. All needs met/within reach. Spouse at bedside. Precautions Medical Precautions: Fall precautions, Post-Surgical precautions Post-Surgical Precautions: Abdominal Objective Pain Patient denies pain. Patient positioned for comfort with pillow support at conclusion of session. Delirium Screening RASS: Alert and calm Confusion Assessment Method-ICU (CAM-ICU/PCAM-ICU) Feature 1: Acute Onset or Fluctuating Course: Positive Feature 2: Inattention: Positive Feature 3: Altered Level of Consciousness: Negative Feature 4: Disorganized Thinking: Positive Overall CAM-ICU/PCAM-ICU: Positive Bed Mobility Bed Mobility Exam: Scooting/Bridging Level of [place]: Contact guard (to scoot EOB in sitting) Physical/Nonphysical Assist: Verbal Cues, Nonverbal cues (demo/gestures), Additional assist utilized for safety, Minimal cues Assistive Device: Bed rails Bed Mobility Exam: Supine to Sit Level of [place]: Stand-by assist Physical/Nonphysical Assist: Verbal Cues, Minimal cues Assistive Device: Bed rails Transfers Transfer Exam: Sit to stand Level of [place]: Stand-by assist Physical/Nonphysical Assist: Nonverbal cues (demo/gestures), Verbal Cues, Minimal cues Assistive Device: Walker, rolling Transfer Exam: Stand to Sit Level of [place]: Stand-by assist Physical/Nonphysical Assist: Nonverbal cues (demo/gestures), Verbal Cues, Minimal cues Assistive Device: Walker, rolling Ambulation Device: Rolling walker Apparatus: Chair follow Assistance: Standby assist Distance : 250' Ambulation Comments: Patient ambulates with decreased ashley, decreased bilateral step length, wide ELAYNE secondary to scrotal edema and limited by fatigue; patient unable to rate on RPE scale. PT provided verbal cues for encouragement with ambulation, safe AD proximity, and pacing. Patient noted with lateral excursion though without hitting RW on environmental barriers. Pateint ambulated on room air with SpO2 94-96%. Balance Postural Appearance Posture: Within Functional Limits Static Sitting Balance Static Sitting-Balance Support: Feet supported Static Sitting-Level of Assistance: Supervision Dynamic Sitting Balance Dynamic Sitting-Balance Support: Feet supported Dynamic Sitting-Balance: Anterior/Posterior weight shifts, Lateral weight shifts Level of Assistance: Standby assisst Static Standing Balance Static Standing-Balance Support: Right upper extremity support, Left upper extremity support Static Standing-Level of Assistance: Standby assist Dynamic Standing Balance Dynamic Standing-Balance Support: Left upper extremity support, Right upper extremity support Dynamic Standing-Balance: Lateral weight shifts, Anterior/Posterior weight shifts Dynamic Standing Level of Assistance: Standby assist Therapeutic Activity (38 minutes) Patient participated in therapeutic activity focused on increasing tolerance to functional tasks and increasing independence with bed mobility, transfers, and patient education regarding HEP and mobility. PT provided skilled management of medical lines/tubes and environmental set-up to ensure safety and reduce fall risk during with mobility. PT monitored SpO2 during mobility with SpO2 at 90-93% while in semi-recumbent position in bed and reclined in recliner chair and 94- 96% on room air during ambulation. Spouse with reports of apnea noted at night time; medical team made aware. Increased time required for gown change secondary to drainage from recent DANILO drain removal and provided additional clean abdominal binder. Standardized Assessments [facility] 6-Clicks Mobility Assessment Difficulty patient has turning over in bed (including adjusting bedclothes, sheets, and blankets)?:A little Difficulty patient has sitting down on and standing up from a chair with arms (wheelchair, bedside commode, etc.)?: A little Difficulty patient has moving from lying on back to sitting on the side of the bed?: A little How much help does the patient need moving to and from a bed to a chair (including a wheelchair)?: A little How much help does the patient need to walk in hospital room?: A little How much help does the patient need climbing 3-5 steps with a railing?: A little [facility] 6-Clicks Mobility Assessment Total : 18 Assessment Patient demonstrates improved activity tolerance as evidenced by increased ambulation distance, improved cognition, and improved sequential activity. Patient with SpO2 dropping in semi-recumbent/reclined to 90-93% seemingly positional; though noted with with SpO2 94-96% on room air sitting upright/s tanding/ambulating; medical team aware and vitals within appropriate parameters at conclusion of session with no acute adverse effects noted. Patient may continue to benefit from skilled PT to address patient's impairments, reduce patient's participation restrictions and activity limitations, and maximize independence. PT Recommendations Discharge Destination: Home with 24 hour assistance, Home health PT, Home health OT Discharge Equipment: Rolling walker Plan Continue per POC. PT Goals PT GOAL DETAILS Goal Established Date Time Frame Goal Status PT Goal 1: Patient will demonstrate supine <> sit with SBA from a flat surface 06/17/25 2 weeks PT Goal 2: Patient will demonstrate STS with SBA and least restrictive assitive device 06/17/25 2 weeks PT Goal 3: Patient will ambulate 150 feet with SBA and least restrictive assistive device 06/17/25 2 weeks PT Goal 4: Patient will navigate 2 stairs with SBA and UE assistance on hand rail 06/17/25 2 weeks Written by Carol Lott on 06/25/25 at 1:30 PM. * Progress Notes - Mick Campoverde DO - 06/25/2025 11:46 AM EDT Images from the original note were not included. GME Progress Note Hospital Day: 13 06/25/25 Subjective: No acute events overnight. Patient's O2 requirement remains stable. Denies chest pain or dyspnea. Has remained non-tachycardic and afebrile. Labs stable. Objective: Vitals: Temp: [36.3 ??C (97.4 ??F)-36.8 ??C (98.2 ??F)] 36.3 ??C (97.4 ??F) Heart Rate: [69-77] 75 Resp: [16] 16 BP: (99-129)/(67-88) 116/72 Physical Exam HENT: Head: Normocephalic. Mouth/Throat: Mouth: Mucous membranes are moist. Eyes: Pupils: Pupils are equal, round, and reactive to light. Cardiovascular: Rate and Rhythm: Normal rate and regular rhythm. Pulmonary: Effort: Pulmonary effort is normal. Breath sounds: Normal breath sounds. Abdominal: Palpations: Abdomen is soft. Skin: General: Skin is warm. Neurological: General: No focal deficit present. Mental Status: He is alert and oriented to person, place, and time. Labs and Imaging: Labs in last 18 hours CBC WBC 15.32 (H) Hb 11.2 (L) Plt 114 (L) Hct 32.7 (L) ANC ?? INR ??, PTT ??, Anti-Xa ?? BMP Na 134 (L) Cl 100 BUN 30 (H) Glu 84 K 3.4 (L) Co2 26 Cr 1.14 Ca 8.1 (L) iCa ?? Mg 2.2, Phos 3.5 Lactate ?? LFT AST 77 (H) AlkPhos 129 (H) T Prot 4.5 (L) ALK 45 Bili 1.7 (H) Alb ?? D.Bili ?? Assessment and Plan: Eber Lowe is a 70 y.o. male pmh significant for: HLD, cirrhosis (MELD-NA 16), hyperbilirubinemia, Esoph varices (Coreg), obesity, prostate cancer, renal calculi, MRSA (2012), HTN, AUD, SCC (leg).Patient is post-op day 7 post robot assisted laparotomy prostatectomy with bilateral pelvic lymph node dissection requiring ex-lap Prostate CA (CMS/HCC). consulted for management of hypernatremia and acute encephalopathy & then reconsulted for PE and leukocytosis. Incidentally Found Acute Right Lower Lobe Pulmonary Embolism, and UE DVT, Provoked - Noted on CT scan abd/pelvis in RLL - O2 requirement stable at room air, no tachycardia (HR 80s), no increased work of breathing - Has been on heparin for dvt ppx however remains hypercoagulable state due to underlying cirrhosisof liver and post-operative state. - CTPE w/ RLL segmental and subsegmental PE - Bilateral US upper and lower extremity for DVT rule out - Acute DVT in Left Brachial Vein and superficial venous thrombus in right cephalic vein - Low molecular weight heparin (LMWH) is the preferred anticoagulant in cirrhosis. But direct oral anticoagulants can be considered in CP score A or B (Patient is Class B currently). - Continue to trend labs to ensure stability within Class B prior to discussing transition to DOAC - If he develops severe thrombocytopenia (platelets <50,000/ L) or gastrointestinal bleeding stopping AC at that time Leukocytosis, likely reactive - Multifactorial etiology in setting of recent surgery, underlying presence of PE - Recently completed course of Linezolid - Has been afebrile, HR within normal limits, lactate elevated at 2.5 - No acute concern for active infection at this time, leukocytosis likely reactive to presence of PE - Pending repeat infectious workup in abundance of caution iso recent invasive abdominal surgery (unable to obtain urine culture as martinez not able to be exchanged) - Daily CBC and CMP 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 MELD 3.0: 17 at 06/25/2025 5:50 AM MELD-Na: 17 at 06/25/2025 5:50 AM Calculated from: Serum Creatinine: 1.14 mg/dL at 06/25/2025 5:50 AM Serum Sodium: 134 mmol/L at 06/25/2025 5:50 AM Total Bilirubin: 1.7 mg/dL at 06/25/2025 5:50 AM Serum Albumin: 2.4 g/dL at 06/25/2025 5:50 AM INR(ratio): 1.5 at 06/23/2025 3:41 AM Age at listing (hypothetical): 70 years Sex: Male at 06/25/2025 5:50 AM -HE: Denies History of Hepatic Encephalopathy, NOT currently taking lactulose at home (was started on here) -Varices: Does have a history of EV, found during EGD in -EGD 08/13: gr1 ev; moderate PHG no focal liver lesion; Takes Coreg daily -Ascites: Does have a history of ascites but does not require paracentesis -SBP: No prior history of SBP -Transplant: Has been evaluated by Liver transplant previously, and NOT currently listed Plan: - Continue daily MELD scoring with CMP and PT/INR - Consider ACES consult if family agreeable for cessation of alcohol; they are not ready at this time for this discussion - Initiate scheduled Lactulose daily. Titrate to three bowel movements a day. - ChildPugh Class C: Abdominal surgery cari-operative mortality: 82% Prostate CA - 06/12: robot-assisted radical prostatectomy, complicated by severed umbilical vein, 1.3L blood loss - Management per primary (Urology) Alcohol Use Disorder -03/28: Reports he is abstinent for 3-4months, then resumes occasional alcohol around 2-3 glasses of wine a few times a week to 2 shots of bourbon a few times a week, last drink about a week ago. - CIWA discontinued, last drink 06/04 per pt report - Continue Folate & PO Thiamine - PETH: 260 was 316 on 03/28/2025 indicating severe alcohol use disorder Renal calculi, asymptomatic - Monitor kidney function with daily labs Enhancing right renal nodule - Discussed with Urology; will monitor over time as too small to be actionable right now RESOLVED ISSUES: Elevated Creatinine, resolved - Suspect due to ATN in setting of blood loss due to surgery. Acute Hepatic Encephalopathy, resolved - Lactulose started, mentation improved. Hypernatremia (resolved) -146 (06/18) -> 139 (06/20) - Continue to encourage gentle hydration now that patient has PO diet. Chronic Medical Conditions we are monitoring: Obesity - Complicates all aspects of care. HLD - resume home statin as able HTN - continue home carvedilol Final Recommendations: Patient should continue therapeutic dose Lovenox 3 months from PE. This is if we are calling this a Provoked PE. Provoking factors for this patient would be hospitalization with prolonged immobilization, surgical intervention, and active malignancy. While hospitalization and surgery are no longer provoking factors, success of surgical excision determines if malignancy is still a provoking factor. If there is concern that the malignancy was not fully removed, then anticoagulation would need to be continued until 3 months after removal/treatment of malignancy. If patient eventually requires longer term anticoagulation, a DOAC could be considered in Child Michel Class A and B; however, even in this case, lovenox remains the preferred agent. Patient should continue Lactulose until follow-up with primary care physician. While the etiology of his confusion is unclear as to HE vs. Post-op confusion, given his decompensated cirrhosis and presence of ascites, we will continue lactulose for now. This can reasonably be discontinued following outpatient f/u to assess for return of confusion. If at that point, patient develops HE, would recommend resumption of lactulose to 3 BMs per day. instructed on how to assess for asterixis on exam. Patient requested referral to [facility] based PCP. I have placed that referral. Can consider referral to [facility] for longwall foreman management of cirrhosis. It appears the patient has been getting routine HCC screening through transplant so it would be reasonable to continue follow-up with Transplant and forego a hepatology referral. This can be decided at the discretion of the primary team and the patient. Jairo Campoverde DO PGY-3 [facility] - Internal Medicine Epic Chat preferred; Pager [phone] Cosigned by Nir Aguilar MD at 06/25/2025 4:38 PM EDT Associated attestation - Nir Aguilar MD - 06/25/2025 4:38 PM EDT I saw and evaluated the patient without the resident. The patient states he passed a kidney stone and his nausea resolved. Abd is distended and firm. No pain Ext with 1+ edema No asterixis Acute Encephalopathy, resolved I spoke at length with his who states he's at baseline. I told them about vigilance for hepatic encephalopathy and taught his how to examine for asterixis. I mentioned our uncertainty aboutweather his acute inpatient encephalopathy represented HE or toxic encephalopathy due to anesthesiathat was slow to resolve due to cirrhosis. The need for half-way lactulose at this point is not known and can be determined in the OP arena. Acute PE - as discussed below, total duration of therapy would be dictated by the status of his prostate CA.From my review of the record, I cannot determine if he was resected for cure. I discussed the case with the resident and agree with the findings and plan as documented. Detailedfinal recs are below * Progress Notes - Johnna Carranza MD - 06/25/2025 11:36 AM EDT Physical Medicine & Rehabilitation Inpatient Consult Followup cc: Prostate CA (CMS/HCC) Subjective: Patient seen and examined. at bedside. Patient reports he is possibly going to be discharged home today. reports he was able to ambulate to bathroom today without assistance. Patient denies any pain. Tolerating PO intake. Martinez recently removed and patient voiding without issues. Current Medications: Continuous: Current Continuous Medications[1] Scheduled: Current Scheduled Medications[2] PRN: Current PRN Medications[3] Review of Information: Labs: Lab Results Component Value Date WBC 15.32 (H) 06/25/2025 WBC 20.07 (H) 06/24/2025 WBC 24.07 (H) 06/23/2025 HGB 11.2 (L) 06/25/2025 HGB 11.8 (L) 06/24/2025 HGB 12.3 (L) 06/23/2025 HCT 32.7 (L) 06/25/2025 MCV 95 06/25/2025 PLT 114 (L) 06/25/2025 PLT 128 (L) 06/24/2025 PLT 141 (L) 06/23/2025 Lab Results Component Value Date NA 134 (L) 06/25/2025 NA 135 (L) 06/24/2025 NA 134 (L) 06/23/2025 K 3.4 (L) 06/25/2025 K 3.6 06/24/2025 K 3.3 (L) 06/24/2025 CL 100 06/25/2025 CL 101 06/24/2025 CL 101 06/23/2025 BUN 30 (H) 06/25/2025 BUN 33 (H) 06/24/2025 BUN 35 (H) 06/23/2025 CREATININE 1.14 06/25/2025 CREATININE 1.20 06/24/2025 CREATININE 1.17 06/23/2025 CALCIUM 8.1 (L) 06/25/2025 CALCIUM 8.3 (L) 06/24/2025 CALCIUM 8.5 (L) 06/23/2025 GLUCOSE 84 06/25/2025 GLUCOSE 105 (H) 06/24/2025 GLUCOSE 110 (H) 06/23/2025 GLUCOSE 107 (H) 06/22/2025 GLUCOSE 105 (H) 06/21/2025 Lab Results Component Value Date ALT 45 06/25/2025 ALT 50 06/24/2025 ALT 52 (H) 06/23/2025 AST 77 (H) 06/25/2025 AST 82 (H) 06/24/2025 AST 86 (H) 06/23/2025 ALKPHOS 129 (H) 06/25/2025 ALKPHOS 142 (H) 06/24/2025 ALKPHOS 138 (H) 06/23/2025 BILITOT 1.7 (H) 06/25/2025 BILITOT 1.7 (H) 06/24/2025 BILITOT 2.3 (H) 06/23/2025 Lab Results Component Value Date HGBA1C 5.4 06/16/2025 Physical Examination: Visit Vitals BP 116/72 Pulse 75 Temp 36.3 ??C (97.4 ??F) Ht 1.753 m (5' 9 ) Wt 116 kg (255 lb 4.7 oz) SpO2 92% BMI 37.70 kg/m?? Gen: NAD, reclining in bed Eyes: no scleral icterus, pupils round and symmetric Neck: supple, no tracheostomy ENT: nares patent, mucous membranes moist CV: regular rate, no BLE edema Resp: nonlabored breathing, no wheezing GI: abd soft, NTTP : no martinez Skin: warm, dry Heme/lymph/immune: no bruising, no lymphadenopathy Psychiatric: good judgement, good insight MSK: - BUE strength 5/5 - BLE strength 5/5 - ROM/MAS 0 Neurological: awake and alert, participating in conversation, speech fluent CN II-XII intact Follow up appointments: No future appointments. Mobility Orders Mobility Protocol: General - Mobility Guidelines Extremity Precautions: No Extremity Precautions Other mobility precautions: No other precautions required ASSESSMENT/PLAN: Eber Lowe is a 70 y.o. male w/PMH of HLD, HTN, liver dz, kidney stones,unfavorable intermediaterisk prostate cancer, GG3 diffusely on the left, PSA 4.7. Decipher high-risk. PSMA PET scan showingno evidence of metastatic disease who presented to on 06/12/2025 (LOS: 13d) for planned laparoscopic radical prostatectomy, bilateral pelvic lymph node dissection and Laparotomy with ligation of dilated umbilical veins on 06/12. Intermediate risk prostate cancer GG3 Now s/p laparoscopic radical prostatectomy, bilateral pelvic lymph node dissection and Laparotomy with ligation of dilated umbilical veins on 06/12 -PSA 4.7. -continue edema control to scrotum Acute RLL PE - Currently on TLOV. AC management per primary. Asymptomatic renal calculi - bladder stones sent for analysis. Renal function stable. Acute hepatic encephalopathy, resolved. Hypernatremia, resolved. Leukocytosis, improved. Functional decline ADL impairment Gait impairment HTN HLD Decompensated EtOH induced cirrhosis AUD Recommendations: Dispo: Home w/assist Thank you for allowing us to participate in the care of your patient. PM&R will sign off at this time. lease page [phone] with any additional questions, or resident on-call if after hours or on weekends. Johnna Carranza MD IM PGY-3 [1] [2] atorvastatin, 10 mg, Nasogastric, Nightly bisacodyl, 10 mg, Rectal, Daily carvedilol, 3.125 mg, Oral, BID enoxaparin, 1 mg/kg, Subcutaneous, q12h folic acid, 1 mg, Nasogastric, Daily Abiel, 1 packet, Nasogastric, BID lactulose, 10 g, Oral, Daily lidocaine, 1 patch, Apply externally, q24h methocarbamol, 750 mg, Nasogastric, 4x daily Protein, 2 packet, Nasogastric, BID senna-docusate, 1 tablet, Nasogastric, Nightly sodium chloride, 10 mL, Intravenous, q12h thiamine, 100 mg, Nasogastric, Daily [3] glucose, 15-30 grams of glucose, Sublingual, q15 min PRN OR dextrose 10 %, 125 mL, Intravenous, q15 min PRN OR dextrose 10 %, 250 mL, Intravenous, q15 min PRN OR glucagon (human recombinant), 1 mg, Intramuscular, q15 min PRN labetalol, 10 mg, Intravenous, q2h PRN melatonin, 3 mg, Oral, Nightly PRN ondansetron, 4 mg, Intravenous, q6h PRN [COMPLETED] Insert peripheral IV, , , Once AND Saline lock IV, , , Once AND sodium chloride, 10 mL, Intravenous, q12h AND sodium chloride, 10 mL, Intravenous, PRN Cosigned by Paul العلي DO at 06/25/2025 5:13 PM EDT Associated attestation - Paul العلي DO - 06/25/2025 5:13 PM EDT I saw and evaluated the patient with the resident/fellow. I discussed the case with the resident/fellow and agree with the findings and plan as documented. * Progress Notes - Bianka Hansen MD - 06/25/2025 5:41 AM EDT [facility] Urology Inpatient Progress Note Primary Attending: Dyllan Paul MD Procedure(s): RALP with bilateral pelvic lymph node dissection requiring ex-lap 06/12/25 SUBJECTIVE: NAEON. AF, VSS. Minimal pain. No fevers, nausea, vomiting. Denies urgency. Passed bladder stone overnight. PHYSICAL EXAM: Temp: [36.4 ??C (97.5 ??F)-36.8 ??C (98.2 ??F)] 36.6 ??C (97.8 ??F) Heart Rate: [69-77] 69 Resp: [16] 16 BP: (99-129)/(67-88) 109/74 SpO2: [90 %-94 %] 92 % I O Shift I O 24Hrs LDAs No intake/output data recorded. I/O last 3 completed shifts: In: 240 (2.1 mL/kg) [P.O.:240] Out: 900 (7.8 mL/kg) [Urine:900 (0.2 mL/kg/hr)] Weight: 115.8 kg Closed/Suction Drain 1 RUQ Bulb 10 Fr. (Active) Placement Date/Time: 06/12/251854 Inserted by: Dyllan Paul MD Hand Hygiene Completed: Yes Tube Number: 1 Location: RUQ Drain Tube Type: Bulb Size (Fr.): 10 Fr. Drain [place] Size (mL): 100 mL Urethral Catheter Double-lumen;Non-latex 20 Fr. (Active) Placement Date/Time: 06/12/251831 Inserted by: ST Denis, under Dr. Paul's supervision Hand Hygiene Completed: Yes Catheter Type: Double-lumen;Non-latex Tube Size (Fr.): 20 Fr. Difficult Placement: No Number Of Attempts: 1 Urine Re... GEN: NAD, sitting up in chair HEENT: NCAT RESP: Equal bilateral chest rise, on 2.5L NC CV: Appears well perfused ABD: soft abdomen, non-distended, appropriately tender. Incisions c/d/I. : scrotal erythema and edema. Scrotum wet to the touch. Bladder stone found at tip of penis covered by foreskin. EXT: SCDs in place, mild peripheral edema NEURO: awake and alert PSYCH: appropriate mood and affect LABS: Results from last 7 days Lab Units 06/25/25 0550 WBC 10*3/uL 15.32* HEMOGLOBIN g/dL 11.2* HEMATOCRIT % 32.7* PLATELETS 10*3/uL 114* Results from last 7 days Lab Units 06/25/25 0550 SODIUM mmol/L 134* POTASSIUM mmol/L 3.4* CHLORIDE mmol/L 100 CO2 mmol/L 26 BUN mg/dL 30* CREATININE mg/dL 1.14 EGFR mL/min/1.73m*2 69.2 GLUCOSE mg/dL 84 CALCIUM mg/dL 8.1* Results from last 7 days Lab Units 06/19/25 1416 COLOR UA Yellow SPEC GRAV U 1.024 PH UA 6.0 PROTEIN UR mg/dL 30* GLUCOSE UA mg/dL Negative KETONES UA mg/dL Trace* LEUKOCYTES UA Small* NITRITE UA Negative RBC, URINE /HPF >50* WBC, URINE /HPF 6 - 10* SQUAMOUS /HPF 0 - 2 BACTERIA UR HPF Negative IMAGING: VAS US Venous Duplex Upper Extremity Bilateral Result Date: 06/24/2025 Impression: Right: Abnormal study; no evidence of acute DVT is identified. Superficial venous thrombus is demonstrated in the cephalic vein as described above. Left: Abnormal study; evidence of acuteDVT is identified in one of the brachial veins as described above. Superficial venous thrombus is demonstrated in the basilic and cephalic veins as described above. COMMUNICATION: Preliminary findings discussed with Mick Campoverde DO with RB. Preliminary report signed by Shanique Arceo RVT on06/24/2025 4:26 PM By electronically signing this report, I, the attending physician, attest that I have personally reviewed the images/data for the above examination(s) and I agree with the final edited report. Drafted by Shanique Arceo RVT on 06/24/2025 3:17 PM Final report signed by Eber Gilbert MD on 06/24/2025 4:57 PM VAS US Venous Duplex Lower Extremity Bilateral Result Date: 06/24/2025 Impression: Right: Normal study; no evidence of acute DVT is identified. Left: Normal study; no evidence of acute DVT is identified. COMMUNICATION: Per this written report. Preliminary report signed by Lynne Allred on 06/24/2025 3:11 PM By electronically signing this report, I, the attending physician, attest that I have personally reviewed the images/data for the above examination(s) and I agree with the final edited report. Drafted by Lynne Allred on 06/24/2025 3:08 PM Final report signedby Eber Gilbert MD on 06/24/2025 4:56 PM HOSPITAL PROBLEM LIST: Principal Problem: Prostate CA (CMS/HCC) Active Problems: Severe obesity (BMI 35.0-39.9) with comorbidity (CMS/HCC) Anemia Hyperlipidemia Leukocytosis Cirrhosis of liver (CMS/HCC) Hyperbilirubinemia Esophageal varices Renal calculi Hypertension Alcohol use disorder SCC (squamous cell carcinoma), leg, left Electrolyte abnormality Hypernatremia Altered mental state Acute pulmonary embolism (CMS/HCC) ASSESSMENT: Eber Lowe is a 70 y.o. male with hx of cirrhosis (MELD-Na 16), HLD, HTN, kidney stones, esophageal varices, AUD, and prostate cancer who is s/p RALP with bilateral pelvic lymph node dissection complicated by transection of a patent umbilical vein requiring transfusions and ex lap for repair on 06/12/25. Patient is currently on RA, febrile and HDS. Mentation appears to be essentially baseline, left abdominal incision draining serous fluid. FL cystogram showed no leak but there is presence of bladder stones. Re-review of 03/2025 scan shows bladder stones and a non-obstructing right UPJ stone. WBC starting to downtrend, last measured at 20.07 from 24.07 yesterday, CT AP obtained 06/22/25 showed right proximal ureteral stone without hydro, bladder stones, and incidentally right lower lobe PEs. BL UE and LE venous duplex on 06/24/25 demonstrate acute DVT is identified in one of theleft brachial veins. Voiding with adequate urine output after martinez removal 06/24. WBC trending down to 15.32 (from 20.07), hgb small decrease to 11.2 (from 11.8), creatinine down trending to 1.14 (from 1.20). Electrolytes stable. Bladder stone found today, will send for analysis. PLAN: - Send bladder stone for analysis - Appreciate Medicine recs for usp anticoagulation and PE findings - Will discuss home oxygen before discharge - Encourage ambulation and incentive spirometer use - PT/OT with home health - Recommend Jockstrap with pad for scrotal elevation and dryness - Daily AM labs - MMPC - Continue cardiac diet - Continue Delirium precaution - Recommend sleep study outpatient Cheng Kaur, MS4 I saw and evaluated the patient with the medical student and have made edits to the documentation above as needed. Bianka Hansen MD Department of Urology, PGY-1 Pager: [phone] Cosigned by Dyllan Paul MD at 06/29/2025 10:31 AM EDT Associated attestation - Dyllan Paul MD - 06/29/2025 10:31 AM EDT I saw and evaluated the patient. I discussed the case with the resident/fellow and agree with the findings and plan as documented. * Care Plan - Gill White RN - 06/25/2025 3:46 AM EDT Problem: Adult Inpatient Plan of Care Goal: Patient-Specific Goal (Individualized) 06/25/2025344 by Gill White, RN Outcome: Ongoing, Progressing Flowsheets (Taken 06/24/20251999) Patient/Family-Specific Goals (Include Timeframe): pt will remain free from falls this shift with interventions in place Individualized Care Needs: safety Anxieties, Fears or Concerns: none stated 06/25/2025342 by Gill White, RN Outcome: Ongoing, Progressing Flowsheets (Taken 06/24/20251999) Patient/Family-Specific Goals (Include Timeframe): pt will remain free from falls this shift with interventions in place Individualized Care Needs: safety Anxieties, Fears or Concerns: none stated Problem: Infection Goal: Absence of Infection Signs and Symptoms Outcome: Ongoing, Progressing Intervention: Prevent or Manage Infection Flowsheets Taken 06/25/2025344 Infection Management: aseptic technique maintained Fever Reduction/Comfort Measures: lightweight clothing lightweight bedding Taken 06/24/20251999 Isolation Precautions: protective precautions maintained Problem: Skin Injury Risk Increased Goal: Skin Health and Integrity Outcome: Ongoing, Progressing Intervention: Optimize Skin Protection Flowsheets Taken 06/25/2025344 Pressure Reduction Techniques: frequent weight shift encouraged Pressure Reduction Devices: specialty bed utilized Skin Protection: incontinence pads utilized Head of Bed (HOB) Positioning: HOB elevated Taken 06/24/20251999 Activity Management: activity adjusted per tolerance Problem: Fall Injury Risk Goal: Absence of Fall and Fall-Related Injury Outcome: Ongoing, Progressing Intervention: Identify and Manage Contributors Flowsheets (Taken 06/25/2025344) Medication Review/Management: medications reviewed Self-Care Promotion: independence encouraged Problem: Self-Care Deficit Goal: Improved Ability to Complete Activities of Daily Living Outcome: Ongoing, Progressing Intervention: Promote Activity and Functional [place] Flowsheets (Taken 06/25/2025344) Activity Assistance Provided: assistance, stand-by Adaptive Equipment Use: used with assistance Self-Care Promotion: independence encouraged Problem: Wound Goal: Optimal Wound Healing Outcome: Ongoing, Progressing Intervention: Promote Wound Healing Flowsheets (Taken 06/25/2025344) Sleep/Rest Enhancement: awakenings minimized consistent schedule promoted room darkened regular sleep/rest pattern promoted Problem: Radical Prostatectomy Goal: Optimal Coping Outcome: Ongoing, Progressing Intervention: Support Psychosocial Response to Prostate Cancer and Treatment Flowsheets (Taken 06/25/2025 1685) Supportive Measures: active listening utilized Family/Support System Care: self-care encouraged support provided * Progress Notes - Bianka Hansen MD - 06/24/2025 6:55 PM EDT [facility] Urology Inpatient Progress Note Primary Attending: Dyllna Paul MD Procedure(s): RALP with bilateral pelvic lymph node dissection requiring ex-lap 06/12/25 SUBJECTIVE: NAEON. AF, VSS. Minimal pain. Passing gas and having BM. Patient OOB and walking. PHYSICAL EXAM: Temp: [36.4 ??C (97.5 ??F)-37.1 ??C (98.8 ??F)] 36.4 ??C (97.5 ??F) Heart Rate: [63-81] 77 Resp: [16] 16 BP: (99-150)/(67-84) 99/67 SpO2: [90 %-96 %] 94 % I O Shift I O 24Hrs LDAs I/O this shift: In: 240 [P.O.:240] Out: - I/O last 3 completed shifts: In: - (0 mL/kg) Out: 1850 (16 mL/kg) [Urine:1850 (0.4 mL/kg/hr)] Weight: 115.8 kg Closed/Suction Drain 1 RUQ Bulb 10 Fr. (Active) Placement Date/Time: 06/12/251854 Inserted by: Dyllan Paul MD Hand Hygiene Completed: Yes Tube Number: 1 Location: RUQ Drain Tube Type: Bulb Size (Fr.): 10 Fr. Drain [place] Size (mL): 100 mL Urethral Catheter Double-lumen;Non-latex 20 Fr. (Active) Placement Date/Time: 06/12/251831 Inserted by: ST Denis, under Dr. Paul's supervision Hand Hygiene Completed: Yes Catheter Type: Double-lumen;Non-latex Tube Size (Fr.): 20 Fr. Difficult Placement: No Number Of Attempts: 1 Urine Re... GEN: NAD HEENT: NCAT RESP: Equal bilateral chest rise, on 2L NC CV: Appears well perfused ABD: Incision site on left abdomen draining serous fluid, other incisions clean dry and intact withabdominal binder in place, soft abdomen, non-distended, non-tender. : catheter in place draining yellow urine, scrotal erythema and edema, improving EXT: SCDs in place, mild peripheral edema NEURO: awake and alert PSYCH: appropriate mood and affect LABS: Results from last 7 days Lab Units 06/24/25 0214 WBC 10*3/uL 20.07* HEMOGLOBIN g/dL 11.8* HEMATOCRIT % 34.1* PLATELETS 10*3/uL 128* Results from last 7 days Lab Units 06/24/25 1235 06/24/25 0214 SODIUM mmol/L -- 135* POTASSIUM mmol/L 3.6 3.3* CHLORIDE mmol/L -- 101 CO2 mmol/L -- 24 BUN mg/dL -- 33* CREATININE mg/dL -- 1.20 EGFR mL/min/1.73m*2 -- 65.1 GLUCOSE mg/dL -- 105* CALCIUM mg/dL -- 8.3* Results from last 7 days Lab Units 06/19/25 1416 COLOR UA Yellow SPEC GRAV U 1.024 PH UA 6.0 PROTEIN UR mg/dL 30* GLUCOSE UA mg/dL Negative KETONES UA mg/dL Trace* LEUKOCYTES UA Small* NITRITE UA Negative RBC, URINE /HPF >50* WBC, URINE /HPF 6 - 10* SQUAMOUS /HPF 0 - 2 BACTERIA UR HPF Negative IMAGING: === 06/22/25 === CT ABDOMEN PELVIS W IV CONTRAST - Impression - There is a roughly 6 mm calculus within the mid right ureter without significant upstream dilatation. Further bladder calculi are noted. Enhancing right renal nodule may represent renal cell carcinoma. Right lower lobe pulmonary embolus. Cirrhosis with stigmata of portal hypertension including splenomegaly, small volume ascites and abdominal venous collaterals. Nonspecific peripancreatic edema HOSPITAL PROBLEM LIST: Principal Problem: Prostate CA (CMS/HCC) Active Problems: Severe obesity (BMI 35.0-39.9) with comorbidity (CMS/HCC) Anemia Hyperlipidemia Leukocytosis Cirrhosis of liver (CMS/HCC) Hyperbilirubinemia Esophageal varices Renal calculi Hypertension Alcohol use disorder SCC (squamous cell carcinoma), leg, left Electrolyte abnormality Hypernatremia Altered mental state Acute pulmonary embolism (CMS/HCC) ASSESSMENT: Eber Lowe is a 70 y.o. male with hx of cirrhosis (MELD-Na 16), HLD, HTN, kidney stones, esophageal varices, AUD, and prostate cancer who is s/p RALP with bilateral pelvic lymph node dissection complicated by transection of a patent umbilical vein requiring transfusions and ex lap for repair on 06/12/25. Patient is currently on RA, febrile and HDS. Mentation appears to be essentially baseline, left abdominal incision draining serous fluid. FL cystogram showed no leak but there is presence of bladder stones. Re-review of 03/2025 scan shows bladder stones and a non-obstructing right UPJ stone. WBC starting to downtrend, last measured at 20.07 from 24.07 yesterday, CT AP obtained 06/22/25 showed right proximal ureteral stone without hydro, bladder stones, and incidentally right lower lobe PEs. Will have medicine provide recommendations. PLAN: - Continue martinez catheter, keep catheter off tension. - Appreciate Medicine recs for PE findings - Encourage ambulation and incentive spirometer use - PT/OT with home health - Recommend Jockstrap for scrotal elevation - Daily AM labs - MMPC - Continue cardiac diet - Continue Delirium precaution Bianka Hansen MD Department of Urology, PGY-1 Pager: [phone] Cosigned by Dyllan Paul MD at 06/29/2025 10:31 AM EDT Associated attestation - Dyllan Paul MD - 06/29/2025 10:31 AM EDT I saw and evaluated the patient. I discussed the case with the resident/fellow and agree with the findings and plan as documented. * Progress Notes - Mick Campoverde DO - 06/24/2025 1:43 PM EDT Images from the original note were not included. GME Progress Note Hospital Day: 12 06/24/25 Subjective: No acute events overnight. Patient's O2 requirement remains stable. Denies chest pain or dyspnea. Has remained non-tachycardic and afebrile. Labs improving. Objective: Vitals: Temp: [36.4 ??C (97.6 ??F)-37.1 ??C (98.8 ??F)] 36.5 ??C (97.7 ??F) Heart Rate: [63-83] 73 Resp: [16] 16 BP: (122-150)/(72-87) 122/79 Physical Exam HENT: Head: Normocephalic. Mouth/Throat: Mouth: Mucous membranes are moist. Eyes: Pupils: Pupils are equal, round, and reactive to light. Cardiovascular: Rate and Rhythm: Normal rate and regular rhythm. Pulmonary: Effort: Pulmonary effort is normal. Breath sounds: Normal breath sounds. Abdominal: Palpations: Abdomen is soft. Skin: General: Skin is warm. Neurological: General: No focal deficit present. Mental Status: He is alert and oriented to person, place, and time. Labs and Imaging: Labs in last 18 hours CBC WBC 20.07 (H) Hb 11.8 (L) Plt 128 (L) Hct 34.1 (L) ANC 9.32 (H) INR ??, PTT ??, Anti-Xa ?? BMP Na 135 (L) Cl 101 BUN 33 (H) Glu 105 (H) K 3.6 Co2 24 Cr 1.20 Ca 8.3 (L) iCa ?? Mg 2.2, Phos 3.4 Lactate ?? LFT AST 82 (H) AlkPhos 142 (H) T Prot 4.9 (L) ALK 50 Bili 1.7 (H) Alb ?? D.Bili ?? Assessment and Plan: Eber Lowe is a 70 y.o. male pmh significant for: HLD, cirrhosis (MELD-NA 16), hyperbilirubinemia, Esoph varices (), obesity, prostate cancer, renal calculi, MRSA (2012), HTN, AUD, SCC (leg).Patient is post-op day 7 post robot assisted laparotomy prostatectomy with bilateral pelvic lymph node dissection requiring ex-lap Prostate CA (CMS/HCC). consulted for management of hypernatremia and acute encephalopathy & then reconsulted for PE and leukocytosis. Incidentally Found Acute Right Lower Lobe Pulmonary Embolism, and UE DVT, Provoked - Noted on CT scan abd/pelvis in RLL - O2 requirement stable at room air, no tachycardia (HR 80s), no increased work of breathing - Has been on heparin for dvt ppx however remains hypercoagulable state due to underlying cirrhosisof liver and post-operative state. - CTPE w/ RLL segmental and subsegmental PE - Bilateral US upper and lower extremity for DVT rule out - Prelim Read with Acute DVT in Left Brachial Vein - Low molecular weight heparin (LMWH) is the preferred anticoagulant in cirrhosis. But direct oral anticoagulants can be considered in CP score A or B (Patient is Class B currently). - Continue to trend labs to ensure stability within Class B prior to discussing transition to DOAC - If he develops severe thrombocytopenia (platelets <50,000/ L) or gastrointestinal bleeding stopping AC at that time Leukocytosis, likely reactive - Multifactorial etiology in setting of recent surgery, underlying presence of PE - Recently completed course of Linezolid - Has been afebrile, HR within normal limits, lactate elevated at 2.5 - No acute concern for active infection at this time, leukocytosis likely reactive to presence of PE - Pending repeat infectious workup in abundance of caution iso recent invasive abdominal surgery (unable to obtain urine culture as martinez not able to be exchanged) - Daily CBC and CMP 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 MELD 3.0: 17 at 06/24/2025 2:14 AM MELD-Na: 17 at 06/24/2025 2:14 AM Calculated from: Serum Creatinine: 1.2 mg/dL at 06/24/2025 2:14 AM Serum Sodium: 135 mmol/L at 06/24/2025 2:14 AM Total Bilirubin: 1.7 mg/dL at 06/24/2025 2:14 AM Serum Albumin: 2.5 g/dL at 06/24/2025 2:14 AM INR(ratio): 1.5 at 06/23/2025 3:41 AM Age at listing (hypothetical): 70 years Sex: Male at 06/24/2025 2:14 AM -HE: Denies History of Hepatic Encephalopathy, NOT currently taking lactulose at home (was started on here) -Varices: Does have a history of EV, found during EGD in -EGD 08/13: gr1 ev; moderate PHG no focal liver lesion; Takes Coreg daily -Ascites: Does have a history of ascites but does not require paracentesis -SBP: No prior history of SBP -Transplant: Has been evaluated by Liver transplant previously, and NOT currently listed Plan: - Continue daily MELD scoring with CMP and PT/INR - Consider ACES consult if family agreeable for cessation of alcohol; they are not ready at this time for this discussion - Initiate scheduled Lactulose daily. Titrate to three bowel movements a day. - ChildPugh Class C: Abdominal surgery cari-operative mortality: 82% Prostate CA - 06/12: robot-assisted radical prostatectomy, complicated by severed umbilical vein, 1.3L blood loss - Management per primary (Urology) Alcohol Use Disorder -03/28: Reports he is abstinent for 3-4months, then resumes occasional alcohol around 2-3 glasses of wine a few times a week to 2 shots of bourbon a few times a week, last drink about a week ago. - CIWA discontinued, last drink 06/04 per pt report - Continue Folate & PO Thiamine - PETH: 260 was 316 on 03/28/2025 indicating severe alcohol use disorder Renal calculi, asymptomatic - Monitor kidney function with daily labs Enhancing right renal nodule - Discussed with Urology; will monitor over time as too small to be actionable right now RESOLVED ISSUES: Elevated Creatinine, resolved - Suspect due to ATN in setting of blood loss due to surgery. Acute Hepatic Encephalopathy, resolved - Lactulose started, mentation improved. Hypernatremia (resolved) -146 (06/18) -> 139 (06/20) - Continue to encourage gentle hydration now that patient has PO diet. Chronic Medical Conditions we are monitoring: Obesity - Complicates all aspects of care. HLD - resume home statin as able HTN - continue home carvedilol Jairo Campoverde DO PGY-3 [facility] - Internal Medicine Epic Chat preferred; Pager [phone] Cosigned by Nir Aguilar MD at 06/24/2025 6:50 PM EDT Associated attestation - Nir Aguilar MD - 06/24/2025 6:50 PM EDT I saw and evaluated the patient without the resident. I discussed the case with the resident and agree with the findings and plan as documented. He is concerned that nausea after martinez d/c by primaryis heralding kidney stones which he has frequently as OP for many years. I added some details below about chronic OLSEN as a contributing etiology to cirrhosis. 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 Exam - no asterixis - firm abdomen with evidence of ascites - 2+ LE edema * Progress Notes - Sheryl Huerta RN - 06/24/2025 8:26 AM EDT Rx for RW [facility] to [facility] bedside delivery. No HH acceptance at this time, MD Hansen and pt have been informed, CM requested MD to give pt a hard copy prescription for outpatient PT/OT. * Care Plan - Bianka Phillips RN - 06/24/2025 6:16 AM EDT Problem: Adult Inpatient Plan of Care Goal: Plan of Care Review Outcome: Ongoing, Progressing Flowsheets Taken 06/24/2025 0614 by Bianka Phillips RN Plan of Care Reviewed With: patient Taken 06/23/2025 1107 by Samia Santos RN Progress: improving Goal: Patient-Specific Goal (Individualized) Outcome: Ongoing, Progressing Goal: Absence of Hospital-Acquired Illness or Injury Outcome: Ongoing, Progressing Goal: Optimal Comfort and Wellbeing Outcome: Ongoing, Progressing Intervention: Monitor Pain and Promote Comfort Flowsheets (Taken 06/24/2025613) Pain Management Interventions: medication (see MAR) pillow support provided quiet environment facilitated relaxation techniques promoted emotional support ambulation/increased activity Goal: Readiness for Transition of Care Outcome: Ongoing, Progressing Problem: Infection Goal: Absence of Infection Signs and Symptoms Outcome: Ongoing, Progressing Problem: Skin Injury Risk Increased Goal: Skin Health and Integrity Outcome: Ongoing, Progressing Problem: Fall Injury Risk Goal: Absence of Fall and Fall-Related Injury Outcome: Ongoing, Progressing Problem: Self-Care Deficit Goal: Improved Ability to Complete Activities of Daily Living Outcome: Ongoing, Progressing Problem: Wound Goal: Optimal Wound Healing Outcome: Ongoing, Progressing * Progress Notes - GusloisjeanethCarol I - 06/23/2025 2:04 PM EDT Physical Therapy Treatment Patient Name: Eber Lowe Today's Date: 06/23/2025 PT Discharge Recommendations: Home with 24 hour assistance, Home health PT, Home health OT Equipment Recommended: Rolling walker Subjective Patient agreeable to PT session. Patient noted with improved cognition. Participants in Care Family/Caregiver Present: Yes Family/Caregiver: Spouse Presentation Oxygen Therapy: None (Room air) O2 Delivery Method: Nasal cannula O2 Flow Rate (L/min): 4 L/min Lines and Tubes: Intravenous access, Urinary catheter Pre-Session: (standing at EOB) Pre-Session Comments: Patient encountered standing at EOB; about to ambulate to the bathroom. RN agreeable to therapy session. Post-Session: Sitting in chair, RN notified, Lines intact, Call light in reach Post-Session Comments: Pt positioned for comfort. All needs met/within reach. Spouse at bedside. Precautions Medical Precautions: Fall precautions, Post-Surgical precautions Post-Surgical Precautions: Abdominal Objective Pain Patient denies pain. Patient positioned for comfort with pillow support at conclusion of session. Patient declined donut pillow and scrotal sling in recliner chair; awaiting to don after shower this afternoon. Delirium Screening RASS: Alert and calm Confusion Assessment Method-ICU (CAM-ICU/PCAM-ICU) Feature 1: Acute Onset or Fluctuating Course: Positive Feature 2: Inattention: Positive Feature 3: Altered Level of Consciousness: Negative Feature 4: Disorganized Thinking: Positive Overall CAM-ICU/PCAM-ICU: Positive Transfers Transfer Exam: Sit to stand Level of [place]: Contact guard Physical/Nonphysical Assist: Nonverbal cues (demo/gestures), Verbal Cues, Minimal cues Assistive Device: Walker, rolling Transfer Exam: Stand to Sit Level of [place]: Contact guard Physical/Nonphysical Assist: Nonverbal cues (demo/gestures), Verbal Cues, Minimal cues Assistive Device: Walker, rolling Transfer Exam: Bed to Chair/Chair to Bed Level of [place]: Minimum assist (75% patient's effort) Physical/Nonphysical Assist: Verbal Cues, Maximal cues, 1 person + 1 person to manage equipment, Nonverbal cues (demo/gestures), Additional assist utilized for safety Type of Transfer: Sidesteps Assistive Device: Hand held assist Toilet Transfer Level of [place]: Contact guard Physical/Nonphysical Assist: Verbal Cues, Nonverbal cues (demo/gestures), Minimal cues Type of Transfer: Ambulation, To toilet Assistive Device: Walker, rolling, Grab bar Gait Training (15 minutes) Device: Rolling walker Apparatus: Chair follow Assistance: Contact guard assist Distance : 15' to bathroom + 15' seated rest + 15' + 15' seated rest + 130' Ambulation Comments: Patient ambulates with decreased ashley, decreased bilateral step length, wide ELAYNE secondary to scrotal edema and limited by fatigue; patient unable to rate on RPE scale. PT provided verbal cues for encouragement with ambulation, safe AD proximity, and pacing. Patient noted with lateral excursion and hitting RW on environmental barrier x 1 instance and able to correct with increased time. Balance Postural Appearance Posture: Within Functional Limits Static Sitting Balance Static Sitting-Balance Support: Feet supported Static Sitting-Level of Assistance: Supervision Dynamic Sitting Balance Dynamic Sitting-Balance Support: Feet supported Dynamic Sitting-Balance: Anterior/Posterior weight shifts, Lateral weight shifts Level of Assistance: Standby assisst Static Standing Balance Static Standing-Balance Support: Right upper extremity support, Left upper extremity support Static Standing-Level of Assistance: Standby assist Dynamic Standing Balance Dynamic Standing-Balance Support: Left upper extremity support, Right upper extremity support Dynamic Standing-Balance: Lateral weight shifts, Anterior/Posterior weight shifts Dynamic Standing Level of Assistance: Contact guard Therapeutic Activity (53 minutes) Patient participated in therapeutic activity focused on increasing tolerance to functional tasks and increasing independence with bed mobility, transfers, and patient education regarding HEP and mobility. PT provided skilled management of medical lines/tubes and environmental set-up to ensure safety and reduce fall risk during with mobility. Patient requesting to utilize bathroom with increased time required for toilieting. Patient stood at bathroom sink x 6 minutes for standing dynamic balanceactivities including multidirectional reaching with SBA for balance. Patient requiring a seated rest break and verbal cues/encouragement for ambulation. PT discussed PT POC in HH setting, energy conservation/pacing, and safety in home setting. Standardized Assessments [facility] 6-Clicks Mobility Assessment Difficulty patient has turning over in bed (including adjusting bedclothes, sheets, and blankets)?:A little Difficulty patient has sitting down on and standing up from a chair with arms (wheelchair, bedside commode, etc.)?: A little Difficulty patient has moving from lying on back to sitting on the side of the bed?: A little How much help does the patient need moving to and from a bed to a chair (including a wheelchair)?: A little How much help does the patient need to walk in hospital room?: A little How much help does the patient need climbing 3-5 steps with a railing?: A little [facility] 6-Clicks Mobility Assessment Total : 18 Assessment Patient demonstrates improved activity tolerance as evidenced by increased sequential activity, improve cognition, improved ambulation tolerance, and improving safety awareness. Patient continues to be limited by decreased safety awareness, distractibility requiring cues for safety, and decreased functional endurance. Patient has good social support from his family upon discharge. Discharge recommendations updated to home with 24/7 assistance; patient and family agreeable. Patient may continue to benefit from skilled PT to address patient's impairments, reduce patient's participation restrictions and activity limitations, and maximize independence. PT Recommendations Discharge Destination: Home with 24 hour assistance, Home health PT, Home health OT Discharge Equipment: Rolling walker Plan Continue per POC. PT Goals PT GOAL DETAILS Goal Established Date Time Frame Goal Status PT Goal 1: Patient will demonstrate supine <> sit with SBA from a flat surface 06/17/25 2 weeks PT Goal 2: Patient will demonstrate STS with SBA and least restrictive assitive device 06/17/25 2 weeks PT Goal 3: Patient will ambulate 150 feet with SBA and least restrictive assistive device 06/17/25 2 weeks PT Goal 4: Patient will navigate 2 stairs with SBA and UE assistance on hand rail 06/17/25 2 weeks Written by Carol Lott on 06/23/25 at 2:06 PM. * Progress Notes - Sheryl Huerta RN - 06/23/2025 1:31 PM EDT Case Management Adult Progress Note Eber Lowe 70 y.o. male CSN: [id number] Admission: 06/12/2025 10:20 AM Primary Problem: Prostate CA (CMS/HCC) Anticipated Discharge Date: 06/26/25 Has Discharge Plans Changed? Medicare Second Notice: Housing Circumstances: Housing Circumstances Action Taken: Medically Ready for Discharge: Additional Comments Per PT/OT pt has HH PT/OT recs, referral [facility] to agencies [facility] for [facility]. POC reviewed with primary team. Refer to primary team's note for details. Pt is not medically readyfor discharge. In??KELLY Baltazar, airborne operations manager * Consults - Crystal Corley RD - 06/23/2025 12:59 PM EDT Adult Nutrition Evaluation Note Eber Lowe 70 y.o. male CSN: [id number] Room/Bed 227/227A Nutrition evaluation type: follow-up Reason for evaluation: Hospital course: 70 y.o male admitted with prostate cancer. OR 06/12 for robot assisted laparotomy prostatectomy with bilateral pelvic lymph node dissection requiring ex-lap. 06/23: HEALTHCARE ECONOMICS CONSULTANT on 06/22: Regular (IDDSI Level 7) diet w/ thin liquids (Level 0). Meds as able. No further HEALTHCARE ECONOMICS CONSULTANT services indicated at this time. + liquid stools- diff stool test. Past medical/ surgical history: Past Medical History[1] Surgical History[2] Social history: Additional comments: Visited room. TF running at 40 ml/hr. Tolerating per RN. Vitals and Basic Assessment: BP: 130/74 Temp: 36.4 ??C (97.5 ??F) Invasive Ventilator Initiated (ETT/Trach Only): Yes Oxygen Therapy: None (Room air) O2 Delivery Method: Nasal cannula [place] Coma Scale Score: 15 Alex Scale Score: 17 Héctor/Cubbin Pressure Risk Score: 35 Most Recent BM Date: 06/23/25 GI Symptoms: None Edema: Generalized, Perineal, Right lower extremity, Left lower extremity Allergies: NKFA Medications: Current Scheduled Medications[3] Current Continuous Medications[4] Current PRN Medications[5] Labs: BMP Na 134 (L) Cl 101 BUN 35 (H) Glu 110 (H) K 3.6 Co2 23 Cr 1.17 Ca 8.5 (L) iCa ?? Mg 2.1, Phos 3.3 Lactate ?? Lab Results Component Value Date TRIG 103 06/16/2025 Lab Results Component Value Date HGBA1C 5.4 06/16/2025 Anthropometrics: Height: 175.3 cm (5' 9 ) Weight: 116 kg (255 lb 4.7 oz) BMI (Calculated): 37.68 Weight Evaluation: Obese-Class 2 (BMI 35-39.9) [place] Body Weight (kg): 72.7 Percent [place] Body Weight: 150 Adjusted Body Weight (kg): 82 Estimated Needs: Metabolic Cart Study Results: Current Nutrition Intake: Diet supplements: Abiel BID. Diet order: Cardiac diet. Percent meals eaten: 35% x 5 meals. Diet Experience and Nutrition History: Diet Education Provided: Will monitor Pertinent home medications: Multivitamin, Metamucil, Vitamin E Nutrition Focused Physical Exam: Physical exam performed on (date): 06/13, 06/17 Temples (muscles): None Clavicle (muscle): None Orbital (fat): Mild Triceps (fat): None Assessment of Malnutrition: Malnutrition Identified: No Nutrition Problem: Inadequate oral intake related to mechanical vent as evidenced by NPO diet (diet advanced). Status of Nutrition Diagnosis: Ongoing Nutrition Interventions and Recommendations: - Cont with Reg/Cardiac diet. - Cont with Abiel Bid. - Snacks TID. - Record PO Intake, If remains decreased may benefit from supplemental feeds. Nutrition Monitoring and Goals: - Tolerate >80% of goal (No longer appropriate). - Patient will consume >50% of most meals (new) - Monitor weight, labs, and elytes Acuity Level: 3 Crystal Corley, SHIRA, LD [1] Past Medical History: Diagnosis Date Cancer (CMS/HCC) january 26, 2025 Cirrhosis (CMS/HCC) 2021 History of methicillin resistant Staphylococcus aureus 2011 Hyperlipidemia Hypertension Kidney stone various Metabolic encephalopathy 06/17/2025 Substance abuse alcohol [2] Past Surgical History: Procedure Laterality Date CHOLECYSTECTOMY 2009 lap KNEE ARTHROSCOPY W/ MENISCAL REPAIR OTHER SURGICAL HISTORY Lipoma resection UMBILICAL HERNIA REPAIR [3] atorvastatin, 10 mg, Nasogastric, Nightly bisacodyl, 10 mg, Rectal, Daily carvedilol, 3.125 mg, Nasogastric, BID enoxaparin, 1 mg/kg, Subcutaneous, q12h folic acid, 1 mg, Nasogastric, Daily Abiel, 1 packet, Nasogastric, BID lactulose, 10 g, Oral, Daily lidocaine, 1 patch, Apply externally, q24h methocarbamol, 750 mg, Nasogastric, 4x daily Protein, 2 packet, Nasogastric, BID senna-docusate, 1 tablet, Nasogastric, Nightly sodium chloride, 10 mL, Intravenous, q12h thiamine, 100 mg, Nasogastric, Daily [4] [5] PRN medications: glucose OR dextrose 10 % OR dextrose 10 % OR glucagon (human recombinant), labetalol, melatonin, ondansetron, [COMPLETED] Insert peripheral IV AND Saline lock IV AND sodium chloride AND sodium chloride * Progress Notes - Michelle Moon - 06/23/2025 12:27 PM EDT Occupational Therapy Treatment Patient Name: Eber Lowe Today's Date: 06/23/2025 OT Discharge Recommendations: Home with 24 hour assistance, Home health PT, Home health OT Equipment Recommended: Rolling walker (tub transfer bench (educated pt and family on purchasing options via [employer])) Subjective I will try the scrotal sling after I take a shower. Participants in Care Family/Caregiver Present: Yes Family/Caregiver: Spouse It Disaster Recovery Manager: Not Applicable Presentation Oxygen Therapy: None (Room air) Lines and Tubes: Intravenous access, Urinary catheter Pre-Session: (standing at EOB with spouse) Pre-Session Comments: Patient encountered standing at EOB with spouse; about to ambulate to the bathroom. RN agreeable to therapy session. Post-Session: Sitting in chair, RN notified, Lines intact, Call light in reach Post-Session Comments: Pt positioned for comfort. All needs met/within reach. Spouse at bedside. RNokay with no chair alarm. Precautions Medical Precautions: Fall precautions, Post-Surgical precautions Post-Surgical Precautions: Abdominal Objective Pain Pt denied pain. Positioned pt for comfort with pillow support at end of therapy session. Pt declined donut pillow and scrotal sling in the recliner. Delirium Screening RASS: Alert and calm Confusion Assessment Method-ICU (CAM-ICU/PCAM-ICU) Feature 3: Altered Level of Consciousness: Negative Cognition Cognition Overall Cognitive Status: (mildly impaired but improving greatly) Arousal/Alertness: Appropriate responses to stimuli Mood/Behavior: Alert, Distractible (mildly confused and distracted but improving significantly since last tx session) Orientation Level: Oriented X4 Orientation Level Comments: with increased time Single Step Commands: Consistently Multi-Step Commands: With increased time, With repetition Method of Communication: Verbal Safety Judgment: Decreased awareness of need for assistance Awareness of Errors: Assistance required to identify errors made, Assistance required to correct errors made Deficit Awareness: Decreased awareness of deficits Attention Span: Attends with cues to redirect Bed Mobility Bed Mobility Interventions: pt received standing at EOB with , pt left in chair at end of session with Transfers Transfer Exam: Sit to stand Level of [place]: Contact guard Physical/Nonphysical Assist: Nonverbal cues (demo/gestures), Verbal Cues, Minimal cues Assistive Device: Walker, rolling Transfer Exam: Stand to Sit Level of [place]: Contact guard Physical/Nonphysical Assist: Nonverbal cues (demo/gestures), Verbal Cues, Minimal cues Assistive Device: Walker, rolling Toilet Transfer Level of [place]: Contact guard Physical/Nonphysical Assist: Set-up required, Verbal Cues, Nonverbal cues (demo/gestures), Minimal cues Type of Transfer: Ambulation, To toilet Assistive Device: Walker, rolling, Grab bar Functional Mobility Device: Rolling walker Apparatus: None Assistance: Contact guard assist, Minimal verbal cues, Minimal tactile cues Distance : 15' to bathroom + 15' seated rest + 15' + 15' seated rest + 130' Self-Care Interventions Self Care/Home Management (ADLs) Time Entry: 59 Pt benefited from skilled occupational therapy interventions including: Monitoring of vitals to ensure activity tolerance (vitals WFL) MIN-MOD verbal, visual, and tactile cues to facilitate improved body mechanics and safety with AD use (RW) during functional tasks Provision of increased time frames to support optimal level of pt participation Task/activity modification with grading as needed to achieve safety while also providing appropriate functional challenge Skilled organization and management of medical lines/tubes to reduce fall risk with mobility aspects of ADLs Environmental set-up to ensure safety and accessibility to all needed areas of treatment space Educated pt and spouse on log rolling, abdominal precautions, activity pacing, RW safety management, fall prevention, benefits of HH therapy, benefits of DME and purchasing specific DME, process of acute care therapy/beyond, compensatory strategies for ADLs/IADLs, abdominal binder management/purpose; pt and spouse receptive of all education with increased time/reps/cues Feeding Feeding Level of Assistance: Setup, Modified independent Feeding Where Assessed: Chair Level Feeding Interventions: While sitting in the recliner chair (positioned at a 90 degree angle), pt functionally reached for cup of ice with setup-mod I in order to drink small sips. Grooming Grooming Level of Assistance: SBA, Minimal verbal cues, Contact guard Grooming Where Assessed: Standing sinkside Grooming Interventions: Pt functionally ambulated to and from the sink with CGA using RW support and min cues for RW safetymanagement and pursed lip breathing. Pt stood at the sink to wash his face/hands and brush his teeth/hair with SBA for safety/balance using RW out front. Lower Extremity Dressing LE Dressing Interventions: Educated pt and spouse on figure four dressing technique in order to adhere to abdominal precautions, pt and spouse receptive. Toileting Toileting Level of Assistance: Contact guard, Moderate assistance, Moderate verbal cues Where Assessed: Toilet Toileting Interventions: Pt functionally ambulated to and from the sink with CGA using RW support and min cues for RW safetymanagement. Pt transferred on and off the toilet with CGA using RW + grab bar + min cues. Pt voidedin the toilet and required mod assist + mod cues for pericare in standing due to edema, decreased functional reach, fatigue, and imbalance. Community Re-entry: Patient challenged to perform functional mobility in hallway to address functional endurance, environmental navigation, and prepare patient for community re-entry. Pt navigating through doorways, along straight paths, around turns, and around large obstacles with CGA using RW. Pt requiring rest breaks to navigate a distance of 15' to bathroom + 15' seated rest + 15' + 15' seated rest + 130'. Therapist provided mod verbal/visual/tactile cues for postural control, activity pacing, RW safety management, and weight shifting to improve dynamic balance and safety awareness. Assessment On this date, pt demonstrated good functional improvement during OT session, with ability to engagein ADL/IADL preparatory routines (functional bed mobility education, functional transfers, functional mobility, toileting, grooming, dressing) with mod assist-CGA, use of assistive devices/adaptive equipment (RW), increased time, min-mod cues, and rest breaks. Pt remains limited by symptoms consistent with fatigue, cognitive deficits, distractive behavior, mild confusion at times, edema, decreased functional reach, decreased activity endurance. This negatively impacts safety and independence with self-care execution/IADLs. With this in mind, OT will continue to follow while hospitalized but pt is currently most appropriate for Home with 24/7 S/A and HHOT/HHPT + RW (and tub transfer bench) upon discharge. While pt remains hospitalized, OT will provide skilled therapy services for the purpose of improving functional status, decreasing caregiver level of burden, and increasing quality of life. OT Recommendations Discharge Destination: Home with 24 hour assistance, Home health PT, Home health OT Discharge Equipment: Rolling walker (tub transfer bench (educated pt and family on purchasing options via [employer])) Plan Continue with established OT plan of care 2-5x/week to progress towards functional OT goals. Goals OT GOAL DETAILS Goal Established Date Time Frame Goal Status OT Goal 1: Pt will complete total body dressing skills with CGA and appropriate adaptive device. 06/17/25 2 weeks OT Goal 2: Pt will complete toileting skills with CGA and appropriate adaptive device. 06/17/25 2 weeks OT Goal 3: Pt will complete functional transfers with CGA and appropriate adaptive device to increase independence with toilet transfers. 06/17/25 2 weeks OT Goal 4: Pt will complete UE HEP 3x/wk with supervision to increase muscle power needed for ADL tasks. 06/17/25 2 weeks Written by Michelle Moon on 06/23/25 at 2:10 PM. * Care Plan - Samia Santos RN - 06/23/2025 11:07 AM EDT Problem: Adult Inpatient Plan of Care Goal: Plan of Care Review Outcome: Ongoing, Progressing Flowsheets (Taken 06/23/2025 1107) Progress: improving Plan of Care Reviewed With: patient Goal: Patient-Specific Goal (Individualized) Outcome: Ongoing, Progressing Flowsheets (Taken 06/23/2025 0800) Patient/Family-Specific Goals (Include Timeframe): pt will remain free from injuries this shift Individualized Care Needs: safety Anxieties, Fears or Concerns: none stated Goal: Absence of Hospital-Acquired Illness or Injury Outcome: Ongoing, Progressing Goal: Optimal Comfort and Wellbeing Outcome: Ongoing, Progressing Goal: Readiness for Transition of Care Outcome: Ongoing, Progressing Problem: Infection Goal: Absence of Infection Signs and Symptoms Outcome: Ongoing, Progressing Problem: Skin Injury Risk Increased Goal: Skin Health and Integrity Outcome: Ongoing, Progressing Problem: Fall Injury Risk Goal: Absence of Fall and Fall-Related Injury Outcome: Ongoing, Progressing Problem: Self-Care Deficit Goal: Improved Ability to Complete Activities of Daily Living Outcome: Ongoing, Progressing Problem: Wound Goal: Optimal Wound Healing Outcome: Ongoing, Progressing * Progress Notes - Mariely Olson - 06/23/2025 7:22 AM EDT [facility] Urology Inpatient Progress Note Primary Attending: Dyllan Paul MD Procedure(s): RALP with bilateral pelvic lymph node dissection requiring ex-lap 06/12/25 SUBJECTIVE: NAEON. Patient resting comfortably in bed. Per nurse patient had 2 small liquid BM last night. Patient reports good sleep last night, alert and oriented to person, place and time. Minimal pain. Passing gas and having BM. Martinez CYU. Patient OOB and walking, reports feeling strong getting up and on his feet. PHYSICAL EXAM: Temp: [36.5 ??C (97.7 ??F)-36.9 ??C (98.5 ??F)] 36.7 ??C (98.1 ??F) Heart Rate: [76-84] 77 Resp: [16-18] 16 BP: (111-136)/(79-81) 118/81 SpO2: [88 %-93 %] 93 % I O Shift I O 24Hrs LDAs No intake/output data recorded. I/O last 3 completed shifts: In: - (0 mL/kg) Out: 2960 (25.6 mL/kg) [Urine:2650 (0.6 mL/kg/hr); Drains:310] Weight: 115.8 kg Closed/Suction Drain 1 RUQ Bulb 10 Fr. (Active) Placement Date/Time: 06/12/251854 Inserted by: Dyllan Paul MD Hand Hygiene Completed: Yes Tube Number: 1 Location: RUQ Drain Tube Type: Bulb Size (Fr.): 10 Fr. Drain [place] Size (mL): 100 mL Urethral Catheter Double-lumen;Non-latex 20 Fr. (Active) Placement Date/Time: 06/12/251831 Inserted by: ST Denis, under Dr. Paul's supervision Hand Hygiene Completed: Yes Catheter Type: Double-lumen;Non-latex Tube Size (Fr.): 20 Fr. Difficult Placement: No Number Of Attempts: 1 Urine Re... GEN: NAD HEENT: NCAT RESP: Equal bilateral chest rise, RA CV: Appears well perfused ABD: Incision site on left abdomen draining serous fluid, other incisions clean dry and intact withabdominal binder in place, soft abdomen, non-distended, non-tender. : catheter in place with yellow urine, scrotal swelling EXT: SCDs in place, mild peripheral edema NEURO: awake and alert PSYCH: appropriate mood and affect LABS: Results from last 7 days Lab Units 06/23/25 0341 WBC 10*3/uL 24.07* HEMOGLOBIN g/dL 12.3* HEMATOCRIT % 34.6* PLATELETS 10*3/uL 141* Results from last 7 days Lab Units 06/23/25 0341 SODIUM mmol/L 134* POTASSIUM mmol/L 3.6 CHLORIDE mmol/L 101 CO2 mmol/L 23 BUN mg/dL 35* CREATININE mg/dL 1.17 EGFR mL/min/1.73m*2 67.1 GLUCOSE mg/dL 110* CALCIUM mg/dL 8.5* Results from last 7 days Lab Units 06/19/25 1416 COLOR UA Yellow SPEC GRAV U 1.024 PH UA 6.0 PROTEIN UR mg/dL 30* GLUCOSE UA mg/dL Negative KETONES UA mg/dL Trace* LEUKOCYTES UA Small* NITRITE UA Negative RBC, URINE /HPF >50* WBC, URINE /HPF 6 - 10* SQUAMOUS /HPF 0 - 2 BACTERIA UR HPF Negative IMAGING: === 06/22/25 === CT ABDOMEN PELVIS W IV CONTRAST - Impression - There is a roughly 6 mm calculus within the mid right ureter without significant upstream dilatation. Further bladder calculi are noted. Enhancing right renal nodule may represent renal cell carcinoma. Right lower lobe pulmonary embolus. Cirrhosis with stigmata of portal hypertension including splenomegaly, small volume ascites and abdominal venous collaterals. Nonspecific peripancreatic edema HOSPITAL PROBLEM LIST: Principal Problem: Prostate CA (CMS/HCC) Active Problems: Severe obesity (BMI 35.0-39.9) with comorbidity (CMS/HCC) Anemia Hyperlipidemia Leukocytosis Cirrhosis of liver (CMS/HCC) Hyperbilirubinemia Esophageal varices Renal calculi Hypertension Alcohol use disorder SCC (squamous cell carcinoma), leg, left Electrolyte abnormality Hypernatremia Altered mental state Acute pulmonary embolism (CMS/HCC) ASSESSMENT: Eber Lowe is a 70 y.o. male with hx of cirrhosis (MELD-Na 16), HLD, HTN, kidney stones, esophageal varices, AUD, and prostate cancer who is s/p RALP with bilateral pelvic lymph node dissection complicated by transection of a patent umbilical vein requiring transfusions and ex lap for repair on 06/12/25. Patient is currently on RA, febrile and HDS. Mentation appears to be essentially baseline, left abdominal incision draining serous fluid. FL cystogram showed no leak but there is presence of bladder stones. Re-review of 03/2025 scan shows bladder stones and a non-obstructing right UPJ stone. WBC has continued to trend up, last measured at 24.07 up from 16.88 yesterday, CT AP obtained 06/22/25 showed right proximal ureteral stone without hydro, bladder stones, and incidentally ri ght lower lobe PEs. Will have medicine provide recommendations. PLAN: - C diff stool test. - Continue martinez catheter, keep catheter off tension. - Appreciate Medicine recs for PE findings - Encourage ambulation and incentive spirometer use - PT/OT with acute rehab recs; appears to be walking better, will have re-eval Monday - Recommend Jockstrap for scrotal elevation - Daily AM labs - MMPC - Continue cardiac diet - Continue Delirium precaution Mariely Olson, MS4 Cosigned by Dyllan Paul MD at 06/23/2025 11:38 AM EDT Associated attestation - Dyllan Paul MD - 06/23/2025 11:38 AM EDT I saw and evaluated the patient. I discussed the case with the resident/fellow and agree with the findings and plan as documented. * Care Plan - Shanique Ruffin RN - 06/23/2025 5:50 AM EDT Problem: Adult Inpatient Plan of Care Goal: Absence of Hospital-Acquired Illness or Injury Outcome: Ongoing, Progressing Intervention: Identify and Manage Fall Risk Flowsheets (Taken 06/22/2025 0730 by Joe Rosa, RN) Safety Promotion/Fall Prevention: activity supervised assistive device/personal items within reach clutter-free environment maintained mobility aid in reach fall prevention program maintained lighting adjusted room organization consistent nonskid shoes/slippers when out of bed safety round/check completed toileting scheduled Intervention: Prevent Skin Injury Flowsheets (Taken 06/22/2025 1000 by Shreyas Cee CNA) Body Position: weight shifting Skin Protection: incontinence pads utilized Intervention: Prevent and Manage VTE (Venous Thromboembolism) Risk Flowsheets (Taken 06/22/2025 1600 by Joe Rosa, RN) VTE Prevention/Management: medication Goal: Optimal Comfort and Wellbeing Outcome: Ongoing, Progressing Intervention: Monitor Pain and Promote Comfort Flowsheets (Taken 06/20/20251999 by Daniele Velazquez, RN) Pain Management Interventions: medication (see MAR) Goal: Readiness for Transition of Care Outcome: Ongoing, Progressing Intervention: Mutually Develop Transition Plan Flowsheets Taken 06/16/2025 1140 by Sheryl Huerta RN Equipment Currently Used at Home: none Taken 06/12/2025 2215 by Jimi Flanagan RN Readmission Within the Last 30 Days: no previous admission in last 30 days Problem: Infection Goal: Absence of Infection Signs and Symptoms Outcome: Ongoing, Progressing Intervention: Prevent or Manage Infection Flowsheets Taken 06/22/2025 0730 by Joe Rosa RN Isolation Precautions: precautions maintained Taken 06/21/2025 0800 by Samia Santos RN Infection Management: aseptic technique maintained Fever Reduction/Comfort Measures: lightweight clothing * Progress Notes - Adam Earl MD - 06/22/2025 1:06 PM EDT [facility]rology Inpatient Progress Note Primary Attending: Dyllan Paul MD Procedure(s): RALP with bilateral pelvic lymph node dissection requiring ex-lap 06/12/25 SUBJECTIVE: NAEON. Patient resting comfortably in bed. Had returned from CT scanner. Restless night but doing well. Appears much improved in terms of mentation. Minimal pain. Passing gas and having BM. Martinez CYU. DANILO serous. PHYSICAL EXAM: Temp: [36.6 ??C (97.8 ??F)-36.9 ??C (98.5 ??F)] 36.6 ??C (97.8 ??F) Heart Rate: [76-83] 76 Resp: [18] 18 BP: (121-143)/(77-91) 127/81 SpO2: [88 %-94 %] 88 % I O Shift I O 24Hrs LDAs No intake/output data recorded. I/O last 3 completed shifts: In: - (0 mL/kg) Out: 3335 (28.8 mL/kg) [Urine:2300 (0.6 mL/kg/hr); Drains:1035] Weight: 116 kg Closed/Suction Drain 1 RUQ Bulb 10 Fr. (Active) Placement Date/Time: 06/12/25 1855 Inserted by: Dyllan Paul MD Hand Hygiene Completed: Yes Tube Number: 1 Location: RUQ Drain Tube Type: Bulb Size (Fr.): 10 Fr. Drain [place] Size (mL): 100 mL Urethral Catheter Double-lumen;Non-latex 20 Fr. (Active) Placement Date/Time: 06/12/251831 Inserted by: ST Denis, under Dr. Paul's supervision Hand Hygiene Completed: Yes Catheter Type: Double-lumen;Non-latex Tube Size (Fr.): 20 Fr. Difficult Placement: No Number Of Attempts: 1 Urine Re... GEN: NAD HEENT: NCAT RESP: Equal bilateral chest rise, RA CV: Appears well perfused ABD: incisions clean dry and intact with abdominal binder in place, soft abdomen, non-distended, non-tender. DANILO draining serous fluid : catheter in place with yellow urine, scrotal swelling EXT: SCDs in place, mild peripheral edema NEURO: awake and alert PSYCH: appropriate mood and affect LABS: Results from last 7 days Lab Units 06/22/25 0157 WBC 10*3/uL 16.88* HEMOGLOBIN g/dL 11.6* HEMATOCRIT % 34.2* PLATELETS 10*3/uL 119* Results from last 7 days Lab Units 06/22/25 0157 SODIUM mmol/L 139 POTASSIUM mmol/L 3.5* CHLORIDE mmol/L 103 CO2 mmol/L 24 BUN mg/dL 39* CREATININE mg/dL 1.15 EGFR mL/min/1.73m*2 68.5 GLUCOSE mg/dL 107* CALCIUM mg/dL 8.2* Results from last 7 days Lab Units 06/19/25 1416 COLOR UA Yellow SPEC GRAV U 1.024 PH UA 6.0 PROTEIN UR mg/dL 30* GLUCOSE UA mg/dL Negative KETONES UA mg/dL Trace* LEUKOCYTES UA Small* NITRITE UA Negative RBC, URINE /HPF >50* WBC, URINE /HPF 6 - 10* SQUAMOUS /HPF 0 - 2 BACTERIA UR HPF Negative IMAGING: === 06/12/25 === CT ABDOMEN PELVIS W IV CONTRAST - Impression - There is a roughly 6 mm calculus within the mid right ureter without significant upstream dilatation. Further bladder calculi are noted. Enhancing right renal nodule may represent renal cell carcinoma. Right lower lobe pulmonary embolus. Cirrhosis with stigmata of portal hypertension including splenomegaly, small volume ascites and abdominal venous collaterals. Nonspecific peripancreatic edema HOSPITAL PROBLEM LIST: Principal Problem: Prostate CA (CMS/HCC) Active Problems: Severe obesity (BMI 35.0-39.9) with comorbidity (CMS/HCC) Anemia Hyperlipidemia Leukocytosis Cirrhosis of liver (CMS/HCC) Hyperbilirubinemia Esophageal varices Renal calculi Hypertension Alcohol use disorder SCC (squamous cell carcinoma), leg, left Electrolyte abnormality Hypernatremia Altered mental state ASSESSMENT: Eber Lowe is a 70 y.o. male with hx of cirrhosis (MELD-Na 16), HLD, HTN, kidney stones, esophageal varices, AUD, and prostate cancer who is s/p RALP with bilateral pelvic lymph node dissection complicated by transection of a patent umbilical vein requiring transfusions and ex lap for repair on 06/12/25. Patient is currently on RA. Mentation appears to be essentially baseline. FL cys togram showed no leak but there is presence of bladder stones. Re-review of 03/2025 scan shows bladder stones and a non-obstructing right UPJ stone. WBC has continued to trend up, CT AP obtained whichshowed right proximal ureteral stone without hydro, bladder stones, and incidentally right lower lobe PEs. Will have medicine provide recommendations. DANILO removed today. If no significant findings on PE workup, does appear appropriate for discharge in next coming days. PLAN: - DANILO removed. Continue martinez catheter. - Appreciated Medicine recs for PE findings - Encourage ambulation and incentive spirometer use - PT/OT with acute rehab recs; appears to be walking better, will have re-eval Monday - Recommend Jockstrap for scrotal elevation - Daily AM labs - MMPC - Continue cardiac diet - Continue Delirium precaution Adam Earl MD Urology PGY-5 Cosigned by Eleonora Syed MD at 06/23/2025 7:39 AM EDT Associated attestation - Eleonora Syed MD - 06/23/2025 7:39 AM EDT I saw and evaluated the patient with the resident/fellow. I discussed the case with the resident/fellow and agree with the findings and plan as documented. * Progress Notes - JordanKalyani malcolmDO - 06/22/2025 12:01 PM EDT GME Progress Note Hospital Day: 06/22/25 Subjective: No acute events overnight. Patient evaluated at bedside. Medicine had originally signed off due to stability of issues, reconsulted due to new worsening leukocytosis and subsequent development of PE.Hemodynamically stable, alert, no signs of confusion as prior. O2 requirement unchanged. Objective: Vitals: Temp: [36.6 ??C (97.8 ??F)-36.9 ??C (98.5 ??F)] 36.6 ??C (97.8 ??F) Heart Rate: [76-83] 76 Resp: [18] 18 BP: (121-143)/(77-91) 127/81 Physical Exam HENT: Head: Normocephalic. Mouth/Throat: Mouth: Mucous membranes are moist. Eyes: Pupils: Pupils are equal, round, and reactive to light. Cardiovascular: Rate and Rhythm: Normal rate and regular rhythm. Pulmonary: Effort: Pulmonary effort is normal. Breath sounds: Normal breath sounds. Abdominal: Palpations: Abdomen is soft. Skin: General: Skin is warm. Neurological: General: No focal deficit present. Mental Status: He is alert and oriented to person, place, and time. Labs and Imaging: Labs in last 18 hours CBC WBC 16.88 (H) Hb 11.6 (L) Plt 119 (L) Hct 34.2 (L) ANC ?? INR 1.5 (H), PTT ??, Anti-Xa ?? BMP Na 139 Cl 103 BUN 39 (H) Glu 107 (H) K 3.5 (L) Co2 24 Cr 1.15 Ca 8.2 (L) iCa ?? Mg 2.1, Phos 3.2 Lactate ?? LFT AST 78 (H) AlkPhos 130 (H) T Prot 4.4 (L) ALK 44 Bili 2.4 (H) Alb ?? D.Bili ?? Assessment and Plan: Eber Lowe is a 70 y.o. male pmh significant for: HLD, cirrhosis (MELD-NA 16), hyperbilirubinemia, Esoph varices (Coreg), obesity, prostate cancer, renal calculi, MRSA (2013), HTN, AUD, SCC (leg).Patient is post-op day 7 post robot assisted laparotomy prostatectomy with bilateral pelvic lymph node dissection requiring ex-lap Prostate CA (CMS/HCC). HM consulted for management of hypernatremia and acute encephalopathy & then reconsulted for PE and leukocytosis. Incidentally Found Right Lower Lobe Pulmonary Embolism, Provoked - Noted on CT scan abd/pelvis in RLL - O2 requirement stable at room air, no tachycardia (HR 80s), no increased work of breathing - Has been on heparin for dvt ppx however remains hypercoagulable state due to underlying cirrhosisof liver - Pending Dedicated CT PE protocol - Bilateral US upper and lower extremity for DVT rule out - Troponin and BNP to further risk stratify - Low molecular weight heparin (LMWH) is the preferred anticoagulant in cirrhosis. But direct oral anticoagulants can be considered in CP score A or B (Patient unfortunately a Class C currently). - If he develops severe thrombocytopenia (platelets <50,000/ L) or gastrointestinal bleeding stopping AC at that time Leukocytosis, likely reactive - Multifactorial etiology in setting of recent surgery, underlying presence of PE - Recently completed course of Linezolid - Has been afebrile, HR within normal limits, lactate elevated at 2.5 - No acute concern for active infection at this time, leukocytosis likely reactive to presence of PE - Pending repeat infectious workup in abundance of caution iso recent invasive abdominal surgery (unable to obtain urine culture as martinez not able to be exchanged) - Recheck lactate, daily CBC and BMP 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: 17 at 06/22/2025 1:57 AM MELD-Na: 16 at 06/22/2025 1:57 AM Calculated from: Serum Creatinine: 1.15 mg/dL at 06/22/2025 1:57 AM Serum Sodium: 139 mmol/L (Using max of 137 mmol/L) at 06/22/2025 1:57 AM Total Bilirubin: 2.4 mg/dL at 06/22/2025 1:57 AM Serum Albumin: 2.6 g/dL at 06/22/2025 1:57 AM INR(ratio): 1.5 at 06/22/2025 1:57 AM Age at listing (hypothetical): 70 years Sex: Male at 06/22/2025 1:57 AM -HE: Denies History of Hepatic Encephalopathy, NOT currently taking lactulose at home (was started on here) -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 Titrate to three bowel movements a day. - ChildPugh Class C: Abdominal surgery cari-operative mortality: 82% Prostate CA - 06/12: robot-assisted radical prostatectomy, complicated by severed umbilical vein, 1.3L blood loss - Management per primary (Urology) Alcohol Use Disorder -03/28: Reports he is abstinent for 3-4months, then resumes occasional alcohol around 2-3 glasses of wine a few times a week to 2 shots of bourbon a few times a week, last drink about a week ago. - CIWA discontinued, last drink 06/04 per pt report - Continue Folate & PO Thiamine - PETH: 260 was 316 on 03/28/2025 indicating severe alcohol use disorder Renal calculi, asymptomatic - Monitor kidney function with daily labs Enhancing right renal nodule - Discussed with Urology; will monitor over time as too small to be actionable right now RESOLVED ISSUES: Elevated Creatinine, resolved - Suspect due to ATN in setting of blood loss due to surgery. Acute Hepatic Encephalopathy, resolved - Lactulose started, mentation improved. Hypernatremia (resolved) -146 (06/18) -> 139 (06/20) - Continue to encourage gentle hydration now that patient has PO diet. Chronic Medical Conditions: Obesity - Complicates all aspects of care. HLD - resume home statin as able HTN - continue home carvedilol Kalyani Kam DO Internal Medicine Resident PGY-3 Epic Chat Preferred Cosigned by nAna Armas MD at 06/22/2025 3:54 PM EDT Associated attestation - Anna Armas MD - 06/22/2025 3:54 PM EDT I saw and evaluated the patient. I discussed the case with the resident/fellow and agree with the findings and plan as documented. Time Spent: I personally spent a total of 52 minutes on this encounter. This time includes face to face with patient, counseling and discussion and/or coordination of care. * Progress Notes - Aurea Rodrigues, [facility]-HEALTHCARE ECONOMICS CONSULTANT - 06/22/2025 10:27 AM EDT Speech Language Pathology Clinical Swallow Initial Evaluation Patient Name: Eber Lowe Age: 70 y.o. Today's Date: 06/22/2025 Recommendations: Regular (IDDSI Level 7) diet w/ thin liquids (Level 0). Meds as able. No further HEALTHCARE ECONOMICS CONSULTANT services indicated at this time. Will sign off. Please re- consult if needed. History/Background Information 70 y.o. male pmh significant for: HLD, cirrhosis (MELD-NA 16), hyperbilirubinemia, Esoph varices (), obesity, prostate cancer, renal calculi, MRSA (2012), HTN, AUD, SCC (leg). Patient is post-opday 7 post robot assisted laparotomy prostatectomy with bilateral pelvic lymph node dissection requiring ex-lap Prostate Subjective Eber Lowe was alert and cooperative. Identified by name and . RN provided verbal consent forevaluation. Objective Current diet: Adult diet Diet texture: Regular; Fat restriction: Cardiac Respiratory Status: room air Direction Following: Follows 1 step directions Oral Mechanism Report: Dentition: intact Oral hygiene: WFL Function Exam: Secretion Management: adequate Vocal Quality: adequate Cough: - Volitional adequate - Reflexive not assessed Oral Feeding Trials: Positionin degrees, upright Feeding assistance: HEALTHCARE ECONOMICS CONSULTANT presented PO trials to patient Consistencies Administered: thin liquid via straw and dry solid consistency Helen Swallow Protocol (Johnna and Peggyr, 2014) - 3 Oz water challenge: pass Assessment Patient seen for clinical swallow evalaution. Patient presents with seemingly functional oropharyngeal swallow skills. Oral phase functional with all solids. No overt pharyngeal patterns across all trails of thin liquids including 3oz water test. Patient appears safe for regular solids ( IDDSI7) and thin liquids (IDDSI0). Prognosis: Good for improved function with skilled speech pathology services focusing on stated goals. Patient Education was provided via verbal instruction to patient regarding risk factors for dysphagia, clinical indicators of dysphagia following evaluation, and plan of care . Will continue to provide education in subsequent sessions as warranted. Results and recommendations of this evaluation were communicated to: RN Plan / Recommendations Diet recommendations: Regular (IDDSI Level 7) diet w/ thin liquids (Level 0). Meds as able. No further HEALTHCARE ECONOMICS CONSULTANT services indicated at this time. Will sign off. Please re-consult if needed. * Care Plan - Joe Rosa RN - 06/22/2025 7:41 AM EDT Problem: Adult Inpatient Plan of Care Goal: Plan of Care Review Outcome: Ongoing, Progressing Flowsheets Taken 06/22/2025 0741 by Joe Rosa RN Progress: improving Taken 06/22/2025 0607 by Daniele Velazquez RN Plan of Care Reviewed With: patient Goal: Patient-Specific Goal (Individualized) Outcome: Ongoing, Progressing Flowsheets (Taken 06/22/2025 0730) Patient/Family-Specific Goals (Include Timeframe): Pt will remain free of falls for the duration ofthis shift Individualized Care Needs: Fall prevention Anxieties, Fears or Concerns: None voiced Goal: Absence of Hospital-Acquired Illness or Injury Outcome: Ongoing, Progressing Goal: Optimal Comfort and Wellbeing Outcome: Ongoing, Progressing Goal: Readiness for Transition of Care Outcome: Ongoing, Progressing Problem: Infection Goal: Absence of Infection Signs and Symptoms Outcome: Ongoing, Progressing Problem: Skin Injury Risk Increased Goal: Skin Health and Integrity Outcome: Ongoing, Progressing Problem: Fall Injury Risk Goal: Absence of Fall and Fall-Related Injury Outcome: Ongoing, Progressing Problem: Self-Care Deficit Goal: Improved Ability to Complete Activities of Daily Living Outcome: Ongoing, Progressing Problem: Wound Goal: Optimal Wound Healing Outcome: Ongoing, Progressing * Care Plan - Daniele Velazquez RN - 06/22/2025 6:08 AM EDT Problem: Adult Inpatient Plan of Care Goal: Plan of Care Review Outcome: Ongoing, Progressing Flowsheets Taken 06/22/2025 0607 by Daniele Velazquez RN Plan of Care Reviewed With: patient Taken 06/21/2025 1251 by Samia Santos RN Progress: improving Goal: Patient-Specific Goal (Individualized) Outcome: Ongoing, Progressing Flowsheets (Taken 06/21/20251999) Patient/Family-Specific Goals (Include Timeframe): pt will be free from injury this shift Individualized Care Needs: safety Anxieties, Fears or Concerns: denies Goal: Absence of Hospital-Acquired Illness or Injury Outcome: Ongoing, Progressing Goal: Optimal Comfort and Wellbeing Outcome: Ongoing, Progressing Goal: Readiness for Transition of Care Outcome: Ongoing, Progressing * Care Plan - Samia Santos RN - 06/21/2025 12:51 PM EDT Problem: Adult Inpatient Plan of Care Goal: Plan of Care Review Outcome: Ongoing, Progressing Flowsheets (Taken 06/21/2025 1251) Progress: improving Plan of Care Reviewed With: patient Goal: Patient-Specific Goal (Individualized) Outcome: Ongoing, Progressing Flowsheets (Taken 06/21/2025 0800 by Vira Hernandez) Patient/Family-Specific Goals (Include Timeframe): pt will be free from falls or injury during shift Individualized Care Needs: safety Anxieties, Fears or Concerns: pt denies Goal: Absence of Hospital-Acquired Illness or Injury Outcome: Ongoing, Progressing Goal: Optimal Comfort and Wellbeing Outcome: Ongoing, Progressing Goal: Readiness for Transition of Care Outcome: Ongoing, Progressing Problem: Infection Goal: Absence of Infection Signs and Symptoms Outcome: Ongoing, Progressing Problem: Skin Injury Risk Increased Goal: Skin Health and Integrity Outcome: Ongoing, Progressing Problem: Fall Injury Risk Goal: Absence of Fall and Fall-Related Injury Outcome: Ongoing, Progressing Problem: Self-Care Deficit Goal: Improved Ability to Complete Activities of Daily Living Outcome: Ongoing, Progressing Problem: Wound Goal: Optimal Wound Healing Outcome: Ongoing, Progressing * Care Plan - Daniele Velazquez RN - 06/21/2025 7:52 AM EDT Problem: Adult Inpatient Plan of Care Goal: Plan of Care Review Outcome: Ongoing, Progressing Flowsheets Taken 06/21/2025 0500 by Daniele Velazquez RN Plan of Care Reviewed With: patient Taken 06/20/2025 1202 by Samia Santos RN Progress: improving Goal: Patient-Specific Goal (Individualized) Outcome: Ongoing, Progressing Flowsheets (Taken 06/20/20251999) Patient/Family-Specific Goals (Include Timeframe): pt will be free from injury this shift Individualized Care Needs: safety Anxieties, Fears or Concerns: denies Goal: Absence of Hospital-Acquired Illness or Injury Outcome: Ongoing, Progressing Goal: Optimal Comfort and Wellbeing Outcome: Ongoing, Progressing Goal: Readiness for Transition of Care Outcome: Ongoing, Progressing Problem: Infection Goal: Absence of Infection Signs and Symptoms Outcome: Ongoing, Progressing * Progress Notes - Adam Earl MD - 06/21/2025 7:16 AM EDT [facility] Urology Inpatient Progress Note Primary Attending: Dyllan Paul MD Procedure(s): RALP with bilateral pelvic lymph node dissection requiring ex-lap 06/12/25 SUBJECTIVE: NAEON. Patient was able to talk with team and seems to be doing better. He does not complain of anypain. He is passing gas and having bowel movements. His abdomen is soft and non-tender. His martinez is clear. His DANILO drain is serosanguinous. No nausea, vomiting, fever, chills. PHYSICAL EXAM: Temp: [36.5 ??C (97.7 ??F)-37.3 ??C (99.2 ??F)] 36.8 ??C (98.2 ??F) Heart Rate: [79-83] 80 Resp: [17] 17 BP: (110-149)/(67-89) 127/79 SpO2: [90 %-94 %] 94 % I O Shift I O 24Hrs LDAs No intake/output data recorded. I/O last 3 completed shifts: In: - (0 mL/kg) Out: 3650 (31.5 mL/kg) [Urine:2850 (0.7 mL/kg/hr); Drains:800] Weight: 116 kg Closed/Suction Drain 1 RUQ Bulb 10 Fr. (Active) Placement Date/Time: 06/12/251854 Inserted by: Dyllan Paul MD Hand Hygiene Completed: Yes Tube Number: 1 Location: RUQ Drain Tube Type: Bulb Size (Fr.): 10 Fr. Drain [place] Size (mL): 100 mL Urethral Catheter Double-lumen;Non-latex 20 Fr. (Active) Placement Date/Time: 06/12/251831 Inserted by: ST Denis, under Dr. Paul's supervision Hand Hygiene Completed: Yes Catheter Type: Double-lumen;Non-latex Tube Size (Fr.): 20 Fr. DifficultPlacement: No Number Of Attempts: 1 Urine Re... GEN: Hemodynamically stable. Resting comfortably in bed. HEENT: NCAT RESP: Equal bilateral chest rise, RA CV: Regular rate, appears well perfused ABD: incisions clean dry and intact with abdominal binder in place, soft abdomen. DANILO draining serous fluid : catheter in place, scrotal swelling EXT: SCDs in place, peripheral edema NEURO: awake and alert PSYCH: unable to assess LABS: Results from last 7 days Lab Units 06/21/25 0325 WBC 10*3/uL 15.49* HEMOGLOBIN g/dL 12.3* HEMATOCRIT % 35.1* PLATELETS 10*3/uL 107* Results from last 7 days Lab Units 06/21/25 0325 SODIUM mmol/L 138 POTASSIUM mmol/L 3.5* CHLORIDE mmol/L 102 CO2 mmol/L 24 BUN mg/dL 46* CREATININE mg/dL 1.24* EGFR mL/min/1.73m*2 62.5 GLUCOSE mg/dL 105* CALCIUM mg/dL 8.3* Results from last 7 days Lab Units 06/19/25 1416 COLOR UA Yellow SPEC GRAV U 1.024 PH UA 6.0 PROTEIN UR mg/dL 30* GLUCOSE UA mg/dL Negative KETONES UA mg/dL Trace* LEUKOCYTES UA Small* NITRITE UA Negative RBC, URINE /HPF >50* WBC, URINE /HPF 6 - 10* SQUAMOUS /HPF 0 - 2 BACTERIA UR HPF Negative IMAGING: No new imaging to review. HOSPITAL PROBLEM LIST: Principal Problem: Prostate CA (CMS/HCC) Active Problems: Severe obesity (BMI 35.0-39.9) with comorbidity (CMS/HCC) Anemia Hyperlipidemia Leukocytosis Cirrhosis of liver (CMS/HCC) Hyperbilirubinemia Esophageal varices Renal calculi Hypertension Alcohol use disorder SCC (squamous cell carcinoma), leg, left Electrolyte abnormality Hypernatremia Altered mental state ASSESSMENT: Eber Lowe is a 70 y.o. male with hx of cirrhosis (MELD-Na 16), HLD, HTN, kidney stones, esophageal varices, AUD, and prostate cancer who is s/p RALP with bilateral pelvic lymph node dissection complicated by transection of a patent umbilical vein requiring transfusions and ex lap for repair on 06/12/25. Patient is currently on RA. DANILO draining serous fluid today. Urine culture was eq uivocal. Blood culture NGD5. Mental status continues to improve and he is less agitated. Sodium levels are within normal limits and he is no longer hypernatremic. DANILO Cr was normal, likely due to ascites. [place] cystogram shows no leakage but there was presence of bladder stones. Re-review of 03/2025 scan shows bladder stones and a non-obstructing right UPJ stone. He is asymptomatic, will continue to follow. PLAN: - Continue to monitor WBC - Plan to remove DANILO tomorrow - Encourage ambulation and incentive spirometer use - Will keep catheter until discharge - PT/OT with acute rehab recs - Recommend Jockstrap for scrotal elevation - Monitor Na levels - Daily AM labs - Agree with abdominal binder - [facility] - Continue cardiac diet - Continue Delirium precaution Roberto Eral, MS4 Cosigned by Eleonora Syed MD at 06/22/2025 7:51 AM EDT Associated attestation - Eleonora Syed MD - 06/22/2025 7:51 AM EDT I saw and evaluated the patient with the resident/fellow. I discussed the case with the resident/fellow and agree with the findings and plan as documented. * Care Plan - Samia Santos RN - 06/20/2025 12:03 PM EDT Problem: Adult Inpatient Plan of Care Goal: Plan of Care Review Outcome: Ongoing, Progressing Flowsheets (Taken 06/20/2025 1202) Progress: improving Plan of Care Reviewed With: patient spouse Goal: Patient-Specific Goal (Individualized) Outcome: Ongoing, Progressing Flowsheets (Taken 06/20/2025 0800) Patient/Family-Specific Goals (Include Timeframe): Pt will work with PT&OT this shift Individualized Care Needs: safety, mobility Anxieties, Fears or Concerns: pain, plan of care Goal: Absence of Hospital-Acquired Illness or Injury Outcome: Ongoing, Progressing Goal: Optimal Comfort and Wellbeing Outcome: Ongoing, Progressing Goal: Readiness for Transition of Care Outcome: Ongoing, Progressing Problem: Infection Goal: Absence of Infection Signs and Symptoms Outcome: Ongoing, Progressing Problem: Skin Injury Risk Increased Goal: Skin Health and Integrity Outcome: Ongoing, Progressing Problem: Fall Injury Risk Goal: Absence of Fall and Fall-Related Injury Outcome: Ongoing, Progressing Problem: Restraint, Nonviolent Goal: Absence of Harm or Injury Outcome: Met Problem: Enteral Nutrition Goal: Absence of Aspiration Signs and Symptoms Outcome: Met Goal: Safe, Effective Therapy Delivery Outcome: Met Goal: Feeding Tolerance Outcome: Met Problem: Self-Care Deficit Goal: Improved Ability to Complete Activities of Daily Living Outcome: Ongoing, Progressing Problem: Wound Goal: Optimal Wound Healing Outcome: Ongoing, Progressing * Progress Notes - Eva French PT - 06/20/2025 12:02 PM EDT PHYSICAL THERAPY TREATMENT PATIENT DATA Patient Name Eber Bustamante Session Date 06/20/2025 Total Treatment Time 39 min PT Discharge Recommendations Acute rehab Equipment Recommendations Defer to facility PRECAUTIONS Weight Bearing Precautions (if applicable) ROM Restrictions (if applicable) Medical Precautions Medical Precautions: Fall precautions, Post-Surgical precautions Post-Surgical Precautions: Abdominal HOME LIVING/SET-UP Lives With Spouse - Javon Home Type House Home Equipment None Home Layout Stairs to enter without rails (1.5 level; Bedroom/bathroom on main level) 2 Bathroom Layout Tub/Shower combo Standard Additional Comments PRIOR LEVEL OF FUNCTION Receives help from No assist required prior to admission Level of Mobility Ambulatory- community Mobility [place] Independent gait without device History of Falls No ADL Performance Independent PRESENTATION Oxygen None (Room air) Lines and Tubes Closed/Suction Drain 1 RUQ Bulb 10 Fr. (Active) Urethral Catheter Double-lumen;Non-latex 20 Fr. (Active) Peripheral IV 06/12/25 Left Arm (Active) Peripheral IV 06/13/25 Left;Upper Arm (Active) Peripheral IV 06/13/25 Anterior;Distal;Right;Upper Arm (Active) Pulse ox Pre-Session Supine, Head of bed elevated, Lines intact RN agreeable to session. Post-Session Sitting in chair, RN notified, Lines intact, Call light in reach, Chair alarm Pt positioned for comfort. All needs met/within reach. Spouse in room with pt at therapist exit. Bracing (if applicable) SUBJECTIVE PARTICIPANTS IN CARE Patient/Caregiver Comments Patient very drowsy - needed encouragement to wake up and participate. appreciative of therapist working with patient today and reports he's had a busy morning and is worn out. Visitors Present Yes Spouse It Disaster Recovery Manager (if applicable) N/A OBJECTIVE Vital Signs Pre-Session Post-Session Heart Rate (BPM) 79 84 O2 Saturation (%) 93 96 PAIN Patient reports 6/10 pain in his abdomen/scrotum. RN aware. DELIRIUM SCREENING RASS: Drowsy Confusion Assessment Method-ICU (CAM-ICU/PCAM-ICU) Feature 3: Altered Level of Consciousness: Positive INTERVENTIONS THERAPEUTIC ACTIVITY Treatment Minutes 31 Interventions Patient participated in PT interventions targeting strength, endurance, range of motion, and balance to improve functional mobility and activity. See bed mobility, transfers, ambulation, and balance sections for details. Additional time required for line management and room set-up for safe mobility. Patient's vital signs monitored intermittently for signs of intolerance to activity throughout session. BED MOBILITY Level of [place] Physical/Non- physical Assist Adaptive Equipment Utilized Rolling/ Turning Scooting/ Bridging Contact guard (to scoot out to EOB while seated) Nonverbal cues (demo/gestures), Verbal Cues, Minimal cues Other (FILER REPAIRER) Supine to Sit Moderate assist (50% patient's effort) HOB elevated, Nonverbal cues (demo/gestures), Verbal Cues, Minimal cues, Additional assist utilized for safety Other (FILER REPAIRER for leverage) Sit to Supine Interventions TRANSFERS Level of [place] Physical/Non- physical Assist Adaptive Equipment Utilized Sit to Stand Minimum assist (75% patient's effort) Nonverbal cues (demo/gestures), Verbal Cues, Minimal cues, Additional assist utilized for safety Hand held assist Stand to sit Minimum assist (75% patient's effort) Nonverbal cues (demo/gestures), Verbal Cues, Minimal cues, Additional assist utilized for safety Hand held assist Bed to Chair Minimum assist (75% patient's effort) Sidesteps Nonverbal cues (demo/gestures), VerbalCues, Minimal cues, Additional assist utilized for safety Hand held assist Toilet Transfer Shower Transfer Interventions BALANCE Interventions Postural Appearance Level of [place] Balance Support Interventions Static Sit Contact guard Feet supported Dynamic Sit Minimum assistance Feet supported Dynamic Sitting-Balance: Anterior/Posterior weight shifts, Lateral weight shifts Static Stand Minimum assistance Right upper extremity support, Left upper extremity support (FILER REPAIRER x 2) Patient stood with FILER REPAIRER x 2 while being cleaned up + brief change prior to sitting down in chair. Stood ~ 5 min. Dynamic Stand Minimum assistance Left upper extremity support, Right upper extremity support (FILER REPAIRER x2) Lateral weight shifts, Anterior/Posterior weight shifts AMBULATION Level of [place] Distance Adaptive Equipment Utilized Ambulation Minimum assistance Patient only able to take a few small steps from bed to chair ~ 3 feet Hand held assist (x 2) Comments Patient has a wide ELAYNE due to scrotal edema, decreased bilateral step lengths, slower ashley, limited by pain and fatigue. THERAPEUTIC EXERCISE Treatment Minutes 8 Interventions PT provided written HEP program to and encouraged her to help patient perform throughout the day as able. Some exercises able to be performed in sitting supported in chair and supine to improve strength, endurance, range of motion, and balance for functional activities. Bilateral LE AROM (active range of motion) x 10 reps ankle pumps quad set glute set long arc quad marching heel / toe raises Therapist provided patient with written HEP that can be accessed by patient at the following: URL: [email or web address] Access Code: [email or web address] Date: 06/20/25 Prepared by: Eva B French, PT ASSESSMENT Patient continues to have the following impairements: impaired activity tolerance, gross functionalweakness, impaired posture, impaired balance, pain, and poor transfer sequencing, which is limitinghim from performing independent functional mobility. Patient's mobility primarily limited by fatigue this date. Patient reports feeling wiped out after getting out of the bed an into the chair. Patient immediately fell asleep once reclined in chair - declined to eat lunch that had just been delivered. Patient's reports they are waiting on another/larger scrotal sling to be delivered. Therapist used a folded pillowcase to help support/move swollen scrotum. No goals met this date. PT RECOMMENDATIONS Discharge Destination Acute rehab Discharge Equipment Defer to facility PLAN Continue with established PT plan of care 2 - 5 times per week to progress towards PT goals. PT GOALS PT GOAL DETAILS Goal Established Date Time Frame Goal Status PT Goal 1: Patient will demonstrate supine <> sit with SBA from a flat surface 06/17/25 2 weeks PT Goal 2: Patient will demonstrate STS with SBA and least restrictive assitive device 06/17/25 2 weeks PT Goal 3: Patient will ambulate 150 feet with SBA and least restrictive assistive device 06/17/25 2 weeks PT Goal 4: Patient will navigate 2 stairs with SBA and UE assistance on hand rail 06/17/25 2 weeks Written by Eva French PT on 06/20/25 at 2:10 PM. * Progress Notes - Justyna Yee - 06/20/2025 11:59 AM EDT Occupational Therapy Treatment Patient Name: Eber Lowe Today's Date: 06/20/2025 OT Discharge Recommendations: Acute rehab Equipment Recommended: Defer to facility Subjective Pt agreeable to OT session. Pt and spouse reporting that pt had a busy morning with little time to rest. Participants in Care Family/Caregiver Present: Yes Family/Caregiver: Spouse It Disaster Recovery Manager: Not Applicable Presentation Oxygen Therapy: None (Room air) Lines and Tubes: Closed/Suction Drain 1 RUQ Bulb 10 Fr. (Active) Urethral Catheter Double-lumen;Non-latex 20 Fr. (Active) Peripheral IV 06/12/25 Left Arm (Active) Peripheral IV 06/13/25 Left;Upper Arm (Active) Peripheral IV 06/13/25 Anterior;Distal;Right;Upper Arm (Active) Pre-Session: Supine, Head of bed elevated, Lines intact Pre-Session Comments: RN agreeable to session. Post-Session: Sitting in chair, RN notified, Lines intact, Call light in reach, Chair alarm Post-Session Comments: Pt positioned for comfort. All needs met/within reach. Spouse in room with pt at therapist exit. Precautions Medical Precautions: Fall precautions, Post-Surgical precautions Post-Surgical Precautions: Abdominal Objective Pain Pain Score (0-10): 610 Location: scrotum Intervention: position adjusted, pillow support provided, and emotional support provided Pt comfortable at end of session. RN aware. Delirium Screening RASS: Drowsy Confusion Assessment Method-ICU (CAM-ICU/PCAM-ICU) Feature 3: Altered Level of Consciousness: Positive Cognition Cognition Cognitive Skill Development Intervention: Pt demonstrated increased fatigue and initial delayed responses to stimuli while supine at beginning of session. Therapist facilitated engagement in positional change via supine > EOB in order to provide vestibular sensory input and attempt to activate reticular activating system to increase arousal level/command following necessary for engagement in further session activities. Pt demonstrated increased arousal and attention upon application of multimodal sensory intervention. Pt demonstrated appropriate response to stimuli and consistent single step command follow for remainder of session. Overall Cognitive Status: Impaired Arousal/Alertness: Appropriate responses to stimuli Mood/Behavior: Alert, Lethargic Orientation Level: Oriented X4 Single Step Commands: Consistently, With increased time, With repetition Method of Communication: Verbal Safety Judgment: Good awareness of safety precautions Awareness of Errors: Assistance required to identify errors made, Assistance required to correct errors made Deficit Awareness: Decreased awareness of deficits Attention Span: Attends with cues to redirect Bed Mobility Bed Mobility Exam: Scooting/Bridging Level of [place]: Contact guard (to scoot out to EOB while seated) Physical/Nonphysical Assist: Nonverbal cues (demo/gestures), Verbal Cues, Minimal cues Assistive Device: Other (FILER REPAIRER) Bed Mobility Exam: Supine to Sit Level of [place]: Moderate assist (50% patient's effort) Physical/Nonphysical Assist: HOB elevated, Nonverbal cues (demo/gestures), Verbal Cues, Minimal cues, Additional assist utilized for safety Assistive Device: Other (FILER REPAIRER for leverage) Transfers Transfer Exam: Sit to stand Level of [place]: Minimum assist (75% patient's effort) Physical/Nonphysical Assist: Nonverbal cues (demo/gestures), Verbal Cues, Minimal cues, Additional assist utilized for safety Assistive Device: Hand held assist Transfer Exam: Stand to Sit Level of [place]: Minimum assist (75% patient's effort) Physical/Nonphysical Assist: Nonverbal cues (demo/gestures), Verbal Cues, Minimal cues, Additional assist utilized for safety Assistive Device: Hand held assist Transfer Exam: Bed to Chair/Chair to Bed Level of [place]: Minimum assist (75% patient's effort) Physical/Nonphysical Assist: Nonverbal cues (demo/gestures), Verbal Cues, Minimal cues, Additional assist utilized for safety Type of Transfer: Sidesteps Assistive Device: Hand held assist Self-Care Interventions Self Care/Home Management (ADLs) Time Entry: 28 Self_Care Interventions: Pt actively participated in self-care interventions this date with an emphasis on functional mobility, endurance, and ADL retraining. Pt engaged in bed mobility, functional transfers, grooming, and toileting ADLs to address performance skill deficits impeding occupational in dependence. Pt engaged in bed mobility tasks to prepare for participation in ADL activity. Pt completed supine to sit transition with mod assist and scooted to EOB with contact guard assist. Pt benefited from skilled occupational therapy interventions including: Monitoring of vitals to ensure activity tolerance MIN verbal and tactile cues to facilitate sequencing during functional tasks Provision of increased time frames to support optimal level of pt participation Task/activity modification with grading as needed to achieve safety while also providing appropriate functional challenge Skilled organization and management of medical lines/tubes to reduce fall risk with mobility aspects of ADLs Environmental set-up to ensure safety and accessibility to all needed areas of treatment space Education on energy conservation and work simplification Grooming Grooming Level of Assistance: Minimum assistance Grooming Where Assessed: Bed level Grooming Interventions: Therapist provided pt with warm washcloth for face washing ADL in order to provide tactile stimulation and increase level of arousal necessary for engagement in further session activities. Pt required mod multimodal cues and min A for initiation of face washing task while insupine position. After cues and initial assistance were provided, pt demonstrated the ability to complete face washing ADL while supine with SBA. Toileting Toileting Level of Assistance: Maximum assistance Where Assessed: Other (Comment) (chair) Toileting Interventions: Pt declined the need to utilize restroom this date so therapist facilitated engagement in functional mobility tasks simulating performance skills necessary for higher level toileting ADL participation. Pt completed a sit to stand transfer from EOB with min A and use of bilateral UE hand held assistance. Pt noted to have had experienced an episode of incontinence prior to standing, requiring intervention. Pt required min A and min multimodal cues to sequence sidesteps from EOB over to recliner chair to prepare for completion of transfer. Pt tolerated ~3 minutes of static standing with bilateral UE support and min A while therapists completed perineal care. Pt required min A and consistent bilateral UE support to maintain static and dynamic standing balance during perineal care completion. Pt completed a stand to sit transfer onto recliner chair with min A and minmultimodal cues to ensure a controlled descent. Pt reported significant fatigue upon completion of t oileting ADL, therefore engagement in further functional mobility tasks was deferred. Therapeutic Exercise (10 minutes) Therapist formulated an individualized HEP for pt in order to improve strength and functional endurance necessary for functional ADL participation. Pt's spouse was provided with yellow and red theraband, a printed copy of HEP, and visual demonstrations so as to ensure carryover of HEP. Education provided to complete up to 3x/day as able. Patient spouse verbalized understanding. Informed pt spouseto discontinue exercises if they illicit pain. Please see the information below regarding pt individualized HEP: Access Code: [email or web address] URL: [email or web address] Date: 06/20/2025 Prepared by: Exercises - Seated Scapular Retraction - 1 x daily - 7 x weekly - 3 sets - 10 reps - Seated Shoulder Flexion with Self-Anchored Resistance - 1 x daily - 7 x weekly - 3 sets - 10 reps - Seated Shoulder Diagonal Pulls with Resistance - 1 x daily - 7 x weekly - 3 sets - 10 reps - Seated Shoulder Horizontal Abduction with Resistance - 1 x daily - 7 x weekly - 3 sets - 10 reps - Seated Elbow Flexion with Self-Anchored Resistance - 1 x daily - 7 x weekly - 3 sets - 10 reps - Seated Elbow Extension with Self-Anchored Resistance - 1 x daily - 7 x weekly - 3 sets - 10 reps - Seated Punches - 1 x daily - 7 x weekly - 3 sets - 10 reps Assessment Pt tolerated session activities fair as evidenced by pt reporting no dizziness, dyspnea, etc with engagement in functional activity. Pt engagement in higher level ADL activity limited this date secondary to pt fatigue and decreased endurance. Patient demonstrated good rehab effort this date. Pt demonstrated improvement in functional endurance as evidenced by his ability to engage in higher level ADL activity as compared to previous OT session. However, pt continues to require environmental modification, verbal cues, and physical assistance to maximize safety with engagement in functional activity secondary to limitations with strength, cognition, functional endurance, balance, and activity tolerance. Patient would benefit from continued skilled OT intervention to increase overall performance in ADLs, strength and functional endurance. OT will continue to follow pt and complete POC. OT Recommendations Discharge Destination: Acute rehab Discharge Equipment: Defer to facility Plan OT will progress ADL and IADL performance. OT will continue to follow pt and see as prescribed 2-5x/week. Goals OT GOAL DETAILS Goal Established Date Time Frame Goal Status OT Goal 1: Pt will complete total body dressing skills with CGA and appropriate adaptive device. 06/17/25 2 weeks OT Goal 2: Pt will complete toileting skills with CGA and appropriate adaptive device. 06/17/25 2 weeks OT Goal 3: Pt will complete functional transfers with CGA and appropriate adaptive device to increase independence with toilet transfers. 06/17/25 2 weeks OT Goal 4: Pt will complete UE HEP 3x/wk with supervision to increase muscle power needed for ADL tasks. 06/17/25 Written by Justyna Yee on 06/20/25 at 1:37 PM. * Procedures - Yolande Allison, RN - 06/20/2025 11:13 AM EDT Procedures Lab draw, one attempt, successful * Clinician Note - Jeff Penaloza - 06/20/2025 11:11 AM EDT Speech Language Pathology Attempt Patient Name: Eber Lowe Age: 70 y.o. Today's Date: 06/20/2025 Pt participating in testing at bedside upon HEALTHCARE ECONOMICS CONSULTANT entrance. HEALTHCARE ECONOMICS CONSULTANT spoke with pt's who reported that pt ate and drank yesterday without concerns. She stated that she would discuss participation in the clinical swallow evaluation with pt when he is done with the current testing. HEALTHCARE ECONOMICS CONSULTANT to check back asscheduling allows. Jeff Penaloza MA, CCC-HEALTHCARE ECONOMICS CONSULTANT, B[employer]-S Speech Language Pathologist * Progress Notes - Homar Grajeda - 06/20/2025 10:22 AM EDT [facility] Inpatient Progress Note Primary Attending: Dyllan Paul MD Procedure(s): RALP with bilateral pelvic lymph node dissection requiring ex-lap 06/12/25 SUBJECTIVE: NAEON. Patient able to talk with team and seems to be doing better. Per nursing staff, he is intermittently confused and not as agitated. He does not complain of any pain. States he had a BM. He ate turkey yesterday without difficulty. His DANILO drain is more serous appearing today. No nausea, vomiting, fever, chills. PHYSICAL EXAM: Temp: [36.3 ??C (97.3 ??F)-36.8 ??C (98.2 ??F)] 36.3 ??C (97.3 ??F) Heart Rate: [71-85] 71 Resp: [16-20] 17 BP: (110-140)/(75-95) 122/75 SpO2: [90 %-99 %] 95 % I O Shift I O 24Hrs LDAs No intake/output data recorded. I/O last 3 completed shifts: In: 517 (4.5 mL/kg) [I.V.:91 (0.8 mL/kg); NG/GT:426] Out: 2365 (20.4 mL/kg) [Urine:2090 (0.5 mL/kg/hr); Drains:275] Weight: 116 kg Closed/Suction Drain 1 RUQ Bulb 10 Fr. (Active) Placement Date/Time: 06/12/25 1855 Inserted by: Dyllan Paul MD Hand Hygiene Completed: Yes Tube Number: 1 Location: RUQ Drain Tube Type: Bulb Size (Fr.): 10 Fr. Drain [place] Size (mL): 100 mL Urethral Catheter Double-lumen;Non-latex 20 Fr. (Active) Placement Date/Time: 06/12/251831 Inserted by: ST Denis, under Dr. Paul's supervision Hand Hygiene Completed: Yes Catheter Type: Double-lumen;Non-latex Tube Size (Fr.): 20 Fr. Difficult Placement: No Number Of Attempts: 1 Urine Re... GEN: Hemodynamically stable. Resting comfortably in bed. HEENT: NCAT RESP: Equal bilateral chest rise, RA CV: Regular rate, appears well perfused ABD: incisions clean dry and intact with abdominal binder in place, soft abdomen. DANILO draining serous fluid : catheter in place, scrotal swelling EXT: SCDs in place, peripheral edema NEURO: awake and alert PSYCH: unable to assess LABS: Results from last 7 days Lab Units 06/19/25 0100 WBC 10*3/uL 13.62* HEMOGLOBIN g/dL 12.1* HEMATOCRIT % 36.3* PLATELETS 10*3/uL 90* Results from last 7 days Lab Units 06/20/25 0207 SODIUM mmol/L 139 POTASSIUM mmol/L 4.2 CHLORIDE mmol/L 105 CO2 mmol/L 21* BUN mg/dL 50* CREATININE mg/dL 1.28* EGFR mL/min/1.73m*2 60.2 GLUCOSE mg/dL 84 CALCIUM mg/dL 8.6* Results from last 7 days Lab Units 06/19/25 1416 COLOR UA Yellow SPEC GRAV U 1.024 PH UA 6.0 PROTEIN UR mg/dL 30* GLUCOSE UA mg/dL Negative KETONES UA mg/dL Trace* LEUKOCYTES UA Small* NITRITE UA Negative RBC, URINE /HPF >50* WBC, URINE /HPF 6 - 10* SQUAMOUS /HPF 0 - 2 BACTERIA UR HPF Negative IMAGING: No new imaging to review. HOSPITAL PROBLEM LIST: Principal Problem: Prostate CA (CMS/HCC) Active Problems: Severe obesity (BMI 35.0-39.9) with comorbidity (CMS/HCC) Anemia Hyperlipidemia Leukocytosis Cirrhosis of liver (CMS/HCC) Hyperbilirubinemia Esophageal varices Renal calculi Hypertension Alcohol use disorder SCC (squamous cell carcinoma), leg, left Electrolyte abnormality Hypernatremia Altered mental state ASSESSMENT: Eber Lowe is a 70 y.o. male with hx of cirrhosis (MELD-Na 16), HLD, HTN, kidney stones, esophageal varices, AUD, and prostate cancer who is s/p RALP with bilateral pelvic lymph node dissection complicated by transection of a patent umbilical vein requiring transfusions and ex lap for repair on 06/12/25. Patient is currently on RA. DANILO draining serous fluid today. Urine culture was eq uivocal. Blood culture NGD5. Mental status continues to improve and he is less agitated. Sodium levels are within normal limits and he is no longer hypernatremic. PLAN: - Ordered DANILO creatinine - Ordered FL cystogram - Recommend Jockstrap for scrotal elevation - Monitor Na levels - Continue DANILO drain and martinez catheter - Daily AM labs - Agree with abdominal binder - MMPC - Continue cardiac diet - F/u respiratory culture - F/u BCx - Continue antibiotics to tailor to infection - Continue PT/OT - Continue Delirium precaution - Free water per ICU Homar Grajeda, medical student Cosigned by Sabrina Quiroz MD at 06/23/2025 4:22 PM EDT Associated attestation - Sabrina Quiroz MD - 06/23/2025 4:22 PM EDT I saw and evaluated the patient with the resident/fellow. I discussed the case with the resident/fellow and agree with the findings and plan as documented. * Progress Notes - Paul Sandy - 06/20/2025 8:08 AM EDT GME Progress Note Hospital Day: 8 06/20/25 Subjective: No acute events overnight. Patient was resting comfortably in bed and interacting with spouse. Patient stated that he slept well overnight. states that his appetite has been adequate. Objective: Vitals: Temp: [36.3 ??C (97.3 ??F)-36.8 ??C (98.2 ??F)] 36.3 ??C (97.3 ??F) Heart Rate: [71-87] 71 Resp: [16-20] 17 BP: (110-140)/(75-95) 122/75 Physical Exam HENT: Head: Normocephalic. Mouth/Throat: Mouth: Mucous membranes are moist. Eyes: Pupils: Pupils are equal, round, and reactive to light. Cardiovascular: Rate and Rhythm: Normal rate and regular rhythm. Pulmonary: Effort: Pulmonary effort is normal. Breath sounds: Normal breath sounds. Abdominal: Palpations: Abdomen is soft. Skin: General: Skin is warm. Neurological: General: No focal deficit present. Mental Status: He is alert and oriented to person, place, and time. Labs and Imaging: Labs in last 18 hours CBC WBC ?? Hb ?? Plt ?? Hct ?? ANC ?? INR 1.3 (H), PTT ??, Anti-Xa ?? BMP Na 139 Cl 105 BUN 50 (H) Glu 84 K 4.2 Co2 21 (L) Cr 1.28 (H) Ca 8.6 (L) iCa ?? Mg 2.0, Phos 4.7 (H) Lactate ?? LFT AST 83 (H) AlkPhos 133 (H) T Prot 4.9 (L) ALK 36 Bili 2.8 (H) Alb ?? D.Bili ?? Assessment and Plan: Eber Lowe is a 70 y.o. male pmh significant for: HLD, cirrhosis (MELD-NA 16), hyperbilirubinemia, Esoph varices (), obesity, prostate cancer, renal calculi, MRSA (2012), HTN, AUD, SCC (leg).Patient is post-op day 7 post robot assisted laparotomy prostatectomy with bilateral pelvic lymph node dissection requiring ex-lap Prostate CA (CMS/HCC). consulted for management of hypernatremia and acute encephalopathy. Prostate CA - 06/12: robot-assisted radical prostatectomy, complicated by severed umbilical vein, 1.3L blood loss - Management per primary (Urology) Hypernatremia (resolved) -146 (06/18) -> 139 (06/20) - Continue to encourage gentle hydration now that patient has PO diet. Acute Hepatic Encephalopathy - Patient was required no behavioral intervention overnight. Alert and oriented x3 when seen this morning. - Etiology: Hepatic encephalopathy - CT head Negative for acute abnormality - Ammonia elevated 137. Lactulose started, mentation improved. Decompensated Alcohol Induced Cirrhosis -Etiology: Alcohol Induced -MELD 3.0: 26 at 06/14/2025 12:41 AM MELD-Na: 25 at 06/14/2025 12:41 AM Calculated from: Serum Creatinine: 2.36 mg/dL at 06/14/2025 12:41 AM Serum Sodium: 141 mmol/L (Using max of 137 mmol/L) at 06/14/2025 12:41 AM Total Bilirubin: 2.8 mg/dL at 06/12/2025 9:27 PM Serum Albumin: 2.6 g/dL at 06/13/2025 3:35 PM INR(ratio): 1.8 at 06/12/2025 9:27 PM Age at listing (hypothetical): 70 years Sex: Male at 06/14/2025 12:41 AM -HE: Denies History of Hepatic Encephalopathy, NOT currently taking lactulose at home -Varices: Does have a history of EV, found during EGD in -EGD 08/13: gr1 ev; moderate PHG no focal liver lesion; Takes Coreg daily -Ascites: Does have a history of ascites but does not require paracentesis -SBP: No prior history of SBP -Transplant: Has been evaluated by Liver transplant previously, and NOT currently listed PLAN: - Continue daily MELD scoring with CMP and PT/INR - Consider ACES consult if family agreeable for cessation of alcohol - Initiate scheduled Lactulose daily. Titrate to three bowel movements a day. Elevated Creatinine - Suspect due to ATN in setting of blood loss due to surgery. - Urine output appropriate. - Creatinine down-trending overall. Will take some time to normalize to baseline. Alcohol Use Disorder -03/28: Reports he is abstinent for 3-4months, then resumes occasional alcohol around 2-3 glasses of wine a few times a week to 2 shots of bourbon a few times a week, last drink about a week ago. - Monitor liver function with daily labs - CIWA discontinued, last drink 06/04 per pt report - Continue Folate - Continue PO Thiamine - PETH: 260 was 316 on 03/28/2025. Hyperbilirubinemia - T bili 3.7 in setting AUD related cirrhosis - Monitor with daily labs Leukocytosis, likely reactive - Multifactorial etiology in setting of recent surgery - Pancultures MURF and BC NGTD, Procal 1.99 - Recently completed course of Linezolid - No acute concern for active infection at this time Renal calculi, asymptomatic - Monitor kidney function with daily labs Chronic Medical Conditions: Obesity - Complicates all aspects of care. HLD - resume home statin as able HTN - continue home carvedilol Medicine to sign off at this time. Please reach out with any acute issues or questions. Paul Sandy Medical Student, M4 Epic Chat Preferred Cosigned by Anna Armas MD at 06/20/2025 3:07 PM EDT Associated attestation - Anna Armas MD - 06/20/2025 3:07 PM EDT I saw and evaluated the patient with the medical/SUPERVISOR WOUND/PA student. I discussed the case with the medical/SUPERVISOR WOUND/PA student and agree with the findings and plan as documented. I personally performed the Examand Medical Decision Making. Time Spent: I personally spent a total of 52 minutes on this encounter. This time includes face to face with patient, counseling and discussion and/or coordination of care. * Care Plan - Adilene Bailon RN - 06/20/2025 12:43 AM EDT Problem: Adult Inpatient Plan of Care Goal: Plan of Care Review Outcome: Ongoing, Progressing Goal: Patient-Specific Goal (Individualized) Outcome: Ongoing, Progressing Goal: Absence of Hospital-Acquired Illness or Injury Outcome: Ongoing, Progressing Goal: Optimal Comfort and Wellbeing Outcome: Ongoing, Progressing Goal: Readiness for Transition of Care Outcome: Ongoing, Progressing Problem: Infection Goal: Absence of Infection Signs and Symptoms Outcome: Ongoing, Progressing Problem: Skin Injury Risk Increased Goal: Skin Health and Integrity Outcome: Ongoing, Progressing Problem: Fall Injury Risk Goal: Absence of Fall and Fall-Related Injury Outcome: Ongoing, Progressing Problem: Restraint, Nonviolent Goal: Absence of Harm or Injury Outcome: Ongoing, Progressing Problem: Enteral Nutrition Goal: Absence of Aspiration Signs and Symptoms Outcome: Ongoing, Progressing Goal: Safe, Effective Therapy Delivery Outcome: Ongoing, Progressing Goal: Feeding Tolerance Outcome: Ongoing, Progressing Problem: Self-Care Deficit Goal: Improved Ability to Complete Activities of Daily Living Outcome: Ongoing, Progressing Problem: Wound Goal: Optimal Wound Healing Outcome: Ongoing, Progressing * Care Plan - Sanjuana Sapp RN - 06/19/2025 2:36 PM EDT Problem: Adult Inpatient Plan of Care Goal: Plan of Care Review Outcome: Ongoing, Progressing Flowsheets (Taken 06/19/2025 0800) Progress: improving Plan of Care Reviewed With: patient spouse Goal: Patient-Specific Goal (Individualized) Outcome: Ongoing, Progressing Goal: Absence of Hospital-Acquired Illness or Injury Outcome: Ongoing, Progressing Intervention: Identify and Manage Fall Risk Flowsheets (Taken 06/19/2025 0800) Safety Promotion/Fall Prevention: activity supervised assistive device/personal items within reach Intervention: Prevent Skin Injury Flowsheets (Taken 06/19/2025 0800) Skin Protection: incontinence pads utilized Goal: Optimal Comfort and Wellbeing Outcome: Ongoing, Progressing Goal: Readiness for Transition of Care Outcome: Ongoing, Progressing Problem: Infection Goal: Absence of Infection Signs and Symptoms Outcome: Ongoing, Progressing Intervention: Prevent or Manage Infection Flowsheets Taken 06/19/2025 0800 by Sanjuana Sapp RN Infection Management: aseptic technique maintained Taken 06/18/2025 08 by Lesia Booth RN Fever Reduction/Comfort Measures: lightweight bedding lightweight clothing Problem: Skin Injury Risk Increased Goal: Skin Health and Integrity Outcome: Ongoing, Progressing Problem: Fall Injury Risk Goal: Absence of Fall and Fall-Related Injury Outcome: Ongoing, Progressing Problem: Restraint, Nonviolent Goal: Absence of Harm or Injury Outcome: Ongoing, Progressing Problem: Enteral Nutrition Goal: Absence of Aspiration Signs and Symptoms Outcome: Ongoing, Progressing Goal: Safe, Effective Therapy Delivery Outcome: Ongoing, Progressing Goal: Feeding Tolerance Outcome: Ongoing, Progressing Problem: Self-Care Deficit Goal: Improved Ability to Complete Activities of Daily Living Outcome: Ongoing, Progressing Problem: Wound Goal: Optimal Wound Healing Outcome: Ongoing, Progressing * Consults - Kalyani Kam DO - 06/19/2025 12:35 PM EDTAssociated Order(s): IP CONSULT TO [facility] Images from the original note were not included. Hospital Medicine Consult History & Physical 06/19/25 History: Reason for consult: Hypernatremia , Hospital delerium History of Present Illness: Eber Lowe is a 70 y.o. male pmh significant for: HLD, cirrhosis (MELD-NA 16), hyperbilirubinemia, Esoph varices (Coreg), obesity, prostate cancer, renal calculi, MRSA (2012), HTN, AUD, SCC (leg).Patient is post-op day 7 post robot assisted laparotomy prostatectomy with bilateral pelvic lymph node dissection requiring ex-lap Prostate CA (CMS/HCC). Intraoperative course was complicated by laceration of umbilical vein resulting in 1.3L of blood loss. Patient received 2U PRBC and 3.6L crystal intra-op. Patient had acute desaturation event at end of case when laid flat prior to transport to PACU and was unstable for transfer for the floor. He was upgraded to ICU level of status and [facility] assisted with care. Hospital Medicine consulted on 06/19 after downgrade out of ICU when [facility] signed off for management of hypernatremia and altered mental status by Urology primary service. Review of Systems: 14 point review of systems obtained and is negative except as stated in the HPI PMHx: Past Medical History[1] PSHx: Surgical History[2] FHx: Family History[3] Social Hx: Social History[4] Home Medications: Current Outpatient Medications Medication Instructions atorvastatin (LIPITOR) 10 mg, Daily carvedilol (COREG) 3.125 mg, Oral, 2 times daily furosemide (LASIX) 40 mg, 2 times daily (0900 & 1500) gkuqirskpjbj-dgjj-tdmgxcha-folic acid (Centrum) chewable tablet 1 tablet, Daily potassium chloride CR (Klor-Con) 10 MEQ ER tablet 10 mEq, Daily Vitamin E 1,000 Units, Daily Allergies: Allergies[5] Vitals and Physical Exam: 06/19/2025 7:00 AM 06/19/2025 8:00 AM 06/19/2025 9:00 AM 06/19/2025 10:00 AM 06/19/2025 11:00 AM 06/19/2025 12:00 PM 06/19/2025 1:00 PM Vitals Systolic 147 142 130 138 134 131 139 Diastolic 87 93 90 82 84 95 89 Heart Rate 77 82 87 80 85 84 83 Temp 36.8 C 36.3 C Resp 18 19 16 20 20 19 16 Physical Exam Vitals reviewed. Constitutional: Appearance: He is obese. He is ill-appearing. HENT: Head: Normocephalic and atraumatic. Eyes: General: Scleral icterus (mild) present. Conjunctiva/sclera: Conjunctivae normal. Cardiovascular: Rate and Rhythm: Normal rate and regular rhythm. Pulmonary: Effort: Pulmonary effort is normal. No respiratory distress. Breath sounds: No wheezing. Abdominal: General: There is distension. Tenderness: There is abdominal tenderness. Comments: Abdominal binder in place Musculoskeletal: Right lower leg: No edema. Left lower leg: No edema. Skin: General: Skin is warm. Findings: No erythema or rash. Neurological: General: No focal deficit present. Mental Status: He is alert and oriented to person, place, and time. Labs and Imaging: CBC BMP WBC 13.62 (H) Hb 12.1 (L) Plt 90 (L) Na 146 (H) Cl 111 (H) BUN 51 (H) Glu 131 (H) Hct 36.3 (L) K 3.6 Co2 25 Cr 1.29 (H) Assessment and Recommendations: Eber Lowe is a 70 y.o. male pmh significant for: HLD, cirrhosis (MELD-NA 16), hyperbilirubinemia, Esoph varices (Coreg), obesity, prostate cancer, renal calculi, MRSA (2012), HTN, AUD, SCC (leg).Patient is post-op day 7 post robot assisted laparotomy prostatectomy with bilateral pelvic lymph node dissection requiring ex-lap Prostate CA (CMS/HCC). consulted for management of hypernatremia and acute encephalopathy. Prostate CA - 06/12: robot-assisted radical prostatectomy, complicated by severed umbilical vein, 1.3L blood loss - Management per primary (Urology) Hypernatremia - Na 151 (06/17) -> 146 (06/18) has been receiving free water flushes per ICU - Urine Sodium, urine creatinine, and osmolality ordered - Serum osmolality ordered - Encourage gentle hydration now that patient has PO diet as patient remains to have 2.5 L free water deficit at this time Acute Encephalopathy likely 2/2 Hypoactive Hospital/ICU Delirium - Patient was placed in mitts overnight. Alert and oriented x3 when seen this afternoon. - Etiology: hypoactive delirium, hepatic encephalopathy, uremia, low clearance of renal and hepaticfunction - CT head Negative for acute abnormality - Ammonia elevated 137. Lactulose started, mentation reportedly improved. - Low concern for infectious due to current abx - UA with reflex micro ordered - CMP, PT/INR ordered - BG venous ordered - Lactulose 10 GM/15ML daily (although no history of hepatic encephalopathy) - Cystatin C ordered Decompensated Alcohol Induced Cirrhosis -Etiology: Alcohol Induced -MELD 3.0: 26 at 06/14/2025 12:41 AM MELD-Na: 25 at 06/14/2025 12:41 AM Calculated from: Serum Creatinine: 2.36 mg/dL at 06/14/2025 12:41 AM Serum Sodium: 141 mmol/L (Using max of 137 mmol/L) at 06/14/2025 12:41 AM Total Bilirubin: 2.8 mg/dL at 06/12/2025 9:27 PM Serum Albumin: 2.6 g/dL at 06/13/2025 3:35 PM INR(ratio): 1.8 at 06/12/2025 9:27 PM Age at listing (hypothetical): 70 years Sex: Male at 06/14/2025 12:41 AM -HE: Denies History of Hepatic Encephalopathy, NOT currently taking lactulose at home -Varices: Does have a history of EV, found during EGD in -EGD 08/13: gr1 ev; moderate PHG no focal liver lesion; Takes Coreg daily -Ascites: Does have a history of ascites but does not require paracentesis -SBP: No prior history of SBP -Transplant: Has been evaluated by Liver transplant previously, and NOT currently listed PLAN: - Continue daily MELD scoring with CMP and PT/INR - Consider ACES consult if family agreeable for cessation of alcohol - Initiate scheduled Lactulose daily Alcohol Use Disorder -03/28: Reports he is abstinent for 3-4months, then resumes occasional alcohol around 2-3 glasses of wine a few times a week to 2 shots of bourbon a few times a week, last drink about a week ago. - Monitor liver function with daily labs - CIWA discontinued, last drink 06/04 per pt report - Continue Folate - Continue PO Thiamine - PETH: 260 was 316 on 03/28/2025. Hyperbilirubinemia - T bili 3.7 in setting AUD related cirrhosis - Monitor with daily labs Leukocytosis, likely reactive -Multifactorial etiology in setting of recent surgery - Pancultures MURF and BC NGTD, Procal 1.99 - Recently completed course of Linezolid - No acute concern for active infection at this time Renal calculi, asymptomatic - Monitor kidney function with daily labs Chronic Medical Conditions: Obesity - Complicates all aspects of care. HLD - resume home statin as able HTN - continue home carvedilol Kalyani Kam DO Internal Medicine Resident PGY-3 Epic Chat Preferred; Pager [phone] [1] Past Medical History: Diagnosis Date Cancer (CMS/HCC) january 26, 2025 Cirrhosis (CMS/HCC) 2021 History of methicillin resistant Staphylococcus aureus 2011 Hyperlipidemia Hypertension Kidney stone various Metabolic encephalopathy 06/17/2025 Substance abuse alcohol [2] Past Surgical History: Procedure Laterality Date CHOLECYSTECTOMY 2009 lap KNEE ARTHROSCOPY W/ MENISCAL REPAIR OTHER SURGICAL HISTORY Lipoma resection UMBILICAL HERNIA REPAIR [3] Family History Problem Relation Name Age of Onset Heart disease Mother Anesthesia problems Neg Hx Malig Hyperthermia Neg Hx [4] Social History Tobacco Use Smoking status: Never Passive exposure: Never Smokeless tobacco: Never Vaping Use Vaping status: Never Used Substance Use Topics Alcohol use: Yes Comment: Currently social use. Drug use: Never [5] No Known Allergies Cosigned by Anna Armas MD at 06/19/2025 6:03 PM EDT Associated attestation - nAna Armas MD - 06/19/2025 6:03 PM EDT I saw and evaluated the patient. I discussed the case with the resident/fellow and agree with the findings and plan as documented. and I saw and evaluated the patient. I discussed the case with the medical student and resident/fellow and agree with the findings and plan as documented. I personally participated in the management of the patient. * Progress Notes - Sheryl Huerta RN - 06/19/2025 12:28 PM EDT Case Management Adult Progress Note Eber Lowe 70 y.o. male CSN: [id number] Admission: 06/12/2025 10:20 AM Primary Problem: Prostate CA (CMS/HCC) Anticipated Discharge Date: 06/23/25 Has Discharge Plans Changed? Medicare Second Notice: Housing Circumstances: Housing Circumstances Action Taken: Medically Ready for Discharge: Additional Comments POC reviewed with primary team. Refer to primary team's note for details. Pt is not medically readyfor discharge. In??KELLY Baltazar, airborne operations manager * Consults - Eva Acosta, TORREY - 06/19/2025 10:34 AM EDTAssociated Order(s): IP CONSULT TO PHYSICAL MEDICINE REHAB Images from the original note were not included. PHYSICAL MEDICINE & REHABILITATION INPATIENT CONSULT NOTE Patient: Eber Lowe : 1955 PCP: Murray Prajapati MD at [address] [place], [place] [address] [address] / [place] [id number] Payor: DANIKA / Plan: DANIKA [place] / Product Type: *No Product type* / Date of Service: 06/19/25 cc: Prostate CA (CMS/HCC) Reason for Consultation: functional evaluation History of Present Illness: Eber Lowe is a 70 y.o. male w/PMH of HLD, HTN, liver dz, kidney stones,unfavorable intermediate risk prostate cancer, GG3 diffusely on the left, PSA 4.7. Decipher high-risk. PSMA PET scan showing no evidence of metastatic disease. who presented to on 06/12/2025 (LOS: 7d) for planned laparoscopic radical prostatectomy, bilateral pelvic lymph node dissection and Laparotomy with ligation of dilated umbilical veins on 06/12. Pt tolerated the procedure well. His hospital course has been complicated by Confusion vs hospital delirium - was in mitts overnight on 06/19. Dysphagia, has now passed bedside swallow eval with [facility] and cleared to advance diet as tolerated Scrotal and BLE edema-pt has been treated with lasix and metolazone. PT/OT evaluated pt and recommended acute rehab on dc. PMR was consulted for functional evaluation On exam pt is alert to person, place he is still confused about time and situation. He is aware that he is at for surgery, but unable to tell me what kind of surgery or what for. He says its December 19 2024 instead of June 19 2025. His is at bedside and stated this is his normal when he wakes up initially. [place] like the propofol was still a factor in confusion. I explained there were a multitude of factors when hospitalized, anesthesia, infection, etc. [facility], and pt has no memory of this, or why. Very pleasant, following commands. PMH: Past Medical History[1] PSH: Surgical History[2] Allergies: Allergies[3] Home Medications: Current Outpatient Medications Medication Instructions atorvastatin (LIPITOR) 10 mg, Daily carvedilol (COREG) 3.125 mg, Oral, 2 times daily furosemide (LASIX) 40 mg, 2 times daily (0900 & 1500) ndshmlsjsaxx-lywv-vlrffiub-folic acid (Centrum) chewable tablet 1 tablet, Daily potassium chloride CR (Klor-Con) 10 MEQ ER tablet 10 mEq, Daily Vitamin E 1,000 Units, Daily Active Medications: Continuous: Current Continuous Medications[4]Scheduled: Current Scheduled Medications[5]PRN: Current PRN Medications[6] Family history: Family History[7] Social history: Marital Status: , Javon Children: 3 children Previous Residence: lives with in [place], [place] in a 1.5 story house with 2 steps to enter Anticipated Residence: as above Support: , children, neighbors Tobacco: Denies Alcohol: Was a former drinker Drugs: Denies Travel: denies international travel in the last 6 months 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 Education: HS grad Hobbies: Spending time with family DME used prior to rehab: Has access to MWC, walker, canes and transfer tub bench Driving: Was driving prior Patient/Family goals: To get home Functional History: Premorbid: Receives Help From: No assist required prior to admission Level of Mobility: Ambulatory- community Mobility [place]: Independent gait without device History of Falls: No ADL Performance: Independent Current: Mobility Bed Mobility Exam: Scooting/Bridging Level of [place]: Moderate assist (50% patient's effort) (progressing to CGA; to scoot anterior/posteriorly) Physical/Nonphysical Assist: Verbal Cues, Moderate cues, Nonverbal cues (demo/gestures), Additionalassist utilized for safety Assistive Device: Other (draw sheet) Bed Mobility Exam: Supine to Sit Level of [place]: Moderate assist (50% patient's effort) Transfer Exam: Sit to stand Level of [place]: Moderate assist (50% patient's effort) (x 2 reps from bed and recliner chair) Physical/Nonphysical Assist: Maximal cues, Verbal Cues, Nonverbal cues (demo/gestures), 1 person + 1 person to manage equipment, Additional assist utilized for safety Assistive Device: Walker, rolling Transfer Exam: Stand to Sit Level of [place]: Moderate assist (50% patient's effort) Physical/Nonphysical Assist: Verbal Cues, Nonverbal cues (demo/gestures), 1 person + 1 person to manage equipment, Maximal cues, Additional assist utilized for safety Assistive Device: Walker, rolling Transfer Exam: Bed to Chair/Chair to Bed Level of [place]: Moderate assist (50% patient's effort) Physical/Nonphysical Assist: Verbal Cues, Maximal cues, 1 person + 1 person to manage equipment, Nonverbal cues (demo/gestures), Additional assist utilized for safety Type of Transfer: Sidesteps Assistive Device: Walker, rolling ROS: 14 point ROS negative other than mentioned above in HPI. Consults: PT, OT, PMR, Precautions: Falls, bleeding, infections Procedures: planned laparoscopic radical prostatectomy, bilateral pelvic lymph node dissection and Laparotomy with ligation of dilated umbilical veins on 06/12 OBJECTIVE: Labs: Lab Results Component Value Date WBC 13.62 (H) 06/19/2025 WBC 12.86 (H) 06/17/2025 WBC 13.51 (H) 06/17/2025 HGB 12.1 (L) 06/19/2025 HGB 12.0 (L) 06/17/2025 HGB 12.1 (L) 06/17/2025 HCT 36.3 (L) 06/19/2025 MCV 98 06/19/2025 PLT 90 (L) 06/19/2025 PLT 93 (L) 06/17/2025 PLT 99 (L) 06/17/2025 Lab Results Component Value Date NA 146 (H) 06/19/2025 NA 151 (H) 06/17/2025 NA 146 (H) 06/17/2025 K 3.6 06/19/2025 K 3.8 06/17/2025 K 4.1 06/17/2025 CL 111 (H) 06/19/2025 CL 118 (H) 06/17/2025 CL 112 (H) 06/17/2025 BUN 51 (H) 06/19/2025 BUN 52 (H) 06/17/2025 BUN 51 (H) 06/17/2025 CREATININE 1.29 (H) 06/19/2025 CREATININE 1.23 (H) 06/17/2025 CREATININE 1.37 (H) 06/17/2025 CALCIUM 8.9 06/19/2025 CALCIUM 9.0 06/17/2025 CALCIUM 8.7 (L) 06/17/2025 GLUCOSE 131 (H) 06/19/2025 GLUCOSE 160 (H) 06/17/2025 GLUCOSE 163 (H) 06/17/2025 GLUCOSE 189 (H) 06/16/2025 GLUCOSE 195 (H) 06/16/2025 Lab Results Component Value Date ALT 24 06/16/2025 ALT 39 06/12/2025 ALT 53 (H) 03/28/2025 AST 48 06/16/2025 AST 71 (H) 06/12/2025 AST 96 (H) 03/28/2025 ALKPHOS 159 (H) 06/16/2025 ALKPHOS 109 06/12/2025 ALKPHOS 170 (H) 03/28/2025 BILITOT 2.8 (H) 06/16/2025 BILITOT 2.8 (H) 06/12/2025 BILITOT 3.7 (H) 03/28/2025 Lab Results Component Value Date HGBA1C 5.4 06/16/2025 Cultures: Results Procedure Component Value Units Date/Time Blood Culture (Aerobic/Anaerobet Set) [[id number]] Collected: 06/14/25 0817 Order Status: Completed Specimen: Blood from Bicep, right Updated: 06/19/25 1001 Culture No growth at day 5 Respiratory Culture and Gram Stain [[id number]] (Abnormal) Collected: 06/14/25 0818 Order Status: Completed Specimen: Endotracheal Aspirate Updated: 06/17/25 1103 Culture Heavy Growth Mixed upper respiratory kelsi Comment: The organism value for this result has been updated. These results have been appended to the previously preliminary verified report. Gram Stain Result Fewer than 10 Epithelial cells/LPF Greater than 25 WBC/LPF Numerous Gram negative rods Numerous Gram positive cocci in pairs and chains Moderate Gram positive cocci in clusters Imaging reports reviewed: No MRI head results found for the past [address] Head wo IV Contrast Result Date: 06/17/2025 1. No acute intracranial abnormality. 2. Senescent changes, as described. CRITICAL RESULT: No. COMMUNICATION: Per this written report. Drafted by Vira Siddiqui MD on 06/17/2025 12:49 PM Final report signed by Vira Siddiqui MD on 06/17/2025 12:54 PM Encounter Date: 06/12/25 ECG Adult Result Value EKG DIAGNOSIS CLASS Abnormal Ventricular Rate 109 Atrial Rate 109 GA Interval 152 QRSD Interval 86 QT Interval 336 QTC Interval 452 P Franklin -6 R Franklin -1 T Wave Franklin 5 Diagnosis Sinus tachycardia Diagnosis Poor R-wave progression and cannot rule out an anterior infarct. Diagnosis Cannot rule out Inferior infarct , age undetermined Diagnosis Nonspecific T wave abnormality Diagnosis Abnormal ECG Diagnosis Diagnosis Confirmed by Evin Flynn ([id number]) on 06/14/2025 2:38:22 PM *Note: Due to a large number of results and/or encounters for the requested time period, some results have not been displayed. A complete set of results can be found in Results Review. Current diet (full): Dietary Orders (From admission, onward) Start Ordered 06/18/25 0958 Adult diet Diet texture: Clear liquid; Fat restriction: Cardiac Diet effective now References: IDDSI Diet Texture Guide Question Answer Comment Diet texture Clear liquid Fat restriction: Cardiac 06/18/25 0957 06/14/25 1138 Tube Feeding Tube feeding formula: Novasource Renal; Route of feeding: Nasogastric; Tube feeding schedule: Continuous; Tube feeding continous initial Rate (ml/hr): 20; Advance by (ml): 10; Advance every (hr): 6; Tube feeding continuous goal rate (... Diet effective now Question Answer Comment Tube feeding formula: Novasource Renal Route of feeding: Nasogastric Tube feeding schedule: Continuous Tube feeding continous initial Rate (ml/hr): 20 Advance by (ml): 10 Advance every (hr): 6 Tube feeding continuous goal rate (mL/hr): 40 Tube feeding continuous frequency: Continuous 06/14/25 1139 PHYSICAL EXAM Visit Vitals BP 133/87 (BP Location: Right arm, Patient Position: Lying) Pulse 84 Temp 36.7 ??C (98 ??F) (Oral) Ht 1.753 m (5' 9 ) Wt 116 kg (255 lb 11.7 oz) SpO2 98% BMI 37.77 kg/m?? Gen: NAD, reclining in bed Eyes: no scleral icterus, pupils round and symmetric Neck: supple, no tracheostomy ENT: nares patent, mucous membranes moist CV: regular rate, no BLE edema Resp: nonlabored breathing, no wheezing GI: abd soft, appropriately tender to palpation, +BS, -r/g, abd binder present, deferred me removing for now, aware pt has 2 danilo drains, unable to assess site. : martinez with CYU Skin: warm, dry Heme/lymph/immune: no bruising, no lymphadenopathy Psychiatric: good judgement, good insight MSK: - BUE strength 4/5 - BLE strength 4/5 - AROM throughout Neurological: awake and alert, participating in conversation CN II-XII intact sensation intact to light touch Future Appointments Date Time Provider Department Center 06/24/2025 2:45 PM Dyllan Paul MD [facility] Mobility Orders Mobility Protocol: General - Mobility Guidelines Extremity Precautions: No Extremity Precautions Other mobility precautions: No other precautions required Reviewed chart, labs, orders, vital signs, imaging, prior visit notes. ASSESSMENT/PLAN: Eber Lowe is a 70 y.o. male w/PMH of HLD, HTN, liver dz, kidney stones,unfavorable intermediaterisk prostate cancer, GG3 diffusely on the left, PSA 4.7. Decipher high-risk. PSMA PET scan showingno evidence of metastatic disease. who presented to on 06/12/2025 (LOS: 7d) for planned laparoscopic radical prostatectomy, bilateral pelvic lymph node dissection and Laparotomy with ligation of dilated umbilical veins on 06/12 Functional decline Intermediate risk prostate cancer GG3 Now s/p laparoscopic radical prostatectomy, bilateral pelvic lymph node dissection and Laparotomy with ligation of dilated umbilical veins on 06/12 -Diffusely on the left -PSA 4.7. -pain control, dvt PPX, PT/OT -continue edema control to scrotum Functional decline ADL impairment Gait impairment HTN HLD Liver dz Recommendations: Dispo: acute Current barriers to discharge: Please clarify final plan for duration of martinez. Will need to have DANILO drains removed if appropriate, prior to DC. Recommend [facility] services for cognition, ongoing as pt is disoriented. Continue to monitor leukocytosis to ensure stability prior to dc. Consider UA vs ongoing workup andeval for possible HE Thank you for allowing us to participate in the care of your patient. We will continue to follow. Please page [phone] with any questions, or resident on-call if after hours or on weekends. Eva Acosta, TORREY Physical Medicine & Rehabilitation [1] Past Medical History: Diagnosis Date Cancer (CMS/HCC) january 26, 2025 Cirrhosis (CMS/HCC) 2021 History of methicillin resistant Staphylococcus aureus 2011 Hyperlipidemia Hypertension Kidney stone various Metabolic encephalopathy 06/17/2025 Substance abuse alcohol [2] Past Surgical History: Procedure Laterality Date CHOLECYSTECTOMY 2009 lap KNEE ARTHROSCOPY W/ MENISCAL REPAIR OTHER SURGICAL HISTORY Lipoma resection UMBILICAL HERNIA REPAIR [3] No Known Allergies [4] [5] atorvastatin, 10 mg, Nasogastric, Nightly bisacodyl, 10 mg, Rectal, Daily carvedilol, 3.125 mg, Nasogastric, BID folic acid, 1 mg, Nasogastric, Daily heparin (porcine), 5,000 Units, Subcutaneous, q8h INES insulin regular, 0-5 Units, Subcutaneous, q6h INES Abiel, 1 packet, Nasogastric, BID lidocaine, 1 patch, Apply externally, q24h linezolid, 600 mg, Nasogastric, q12h methocarbamol, 750 mg, Nasogastric, 4x daily Protein, 2 packet, Nasogastric, BID senna-docusate, 1 tablet, Nasogastric, Nightly sodium chloride, 10 mL, Intravenous, q12h [START ON 06/20/2025] thiamine, 100 mg, Nasogastric, Daily [6] glucose, 15-30 grams of glucose, Sublingual, q15 min PRN OR dextrose 10 %, 125 mL, Intravenous, q15 min PRN OR dextrose 10 %, 250 mL, Intravenous, q15 min PRN OR glucagon (human recombinant), 1 mg, Intramuscular, q15 min PRN labetalol, 10 mg, Intravenous, q2h PRN melatonin, 3 mg, Oral, Nightly PRN ondansetron, 4 mg, Intravenous, q6h PRN [COMPLETED] Insert peripheral IV, , , Once AND Saline lock IV, , , Once AND sodium chloride, 10 mL, Intravenous, q12h AND sodium chloride, 10 mL, Intravenous, PRN [7] Family History Problem Relation Name Age of Onset Heart disease Mother Anesthesia problems Neg Hx Malig Hyperthermia Neg Hx * Progress Notes - Ariadna Ken MD - 06/19/2025 8:30 AM EDT [facility] Urology Inpatient Progress Note Primary Attending: Dyllan Paul MD Procedure(s): RALP with bilateral pelvic lymph node dissection requiring ex-lap 06/12/25 SUBJECTIVE: NAEON. The patient is currently on RA this morning and able to talk with the team. Overnight staff placed Mr. Lowe in mitts. Patient not aware of why this happened. His speech is slurred. Patient denies scrotal tenderness, abdominal pain, and nausea. Scrotal swelling has remained the same since yesterday. His DANILO drain is more serous appearing today. PHYSICAL EXAM: Temp: [36.4 ??C (97.6 ??F)-36.7 ??C (98 ??F)] 36.7 ??C (98 ??F) Heart Rate: [79-103] 84 Resp: [12-22] 16 BP: (100-160)/(71-102) 133/87 SpO2: [94 %-100 %] 98 % I O Shift I O 24Hrs LDAs No intake/output data recorded. I/O last 3 completed shifts: In: 1166 (10.1 mL/kg) [I.V.:431 (3.7 mL/kg); NG/GT:735] Out: 4380 (37.8 mL/kg) [Urine:3490 (0.8 mL/kg/hr); Drains:890] Weight: 116 kg Closed/Suction Drain 1 RUQ Bulb 10 Fr. (Active) Placement Date/Time: 06/12/251854 Inserted by: Dyllan Paul MD Hand Hygiene Completed: Yes Tube Number: 1 Location: RUQ Drain Tube Type: Bulb Size (Fr.): 10 Fr. Drain [place] Size (mL): 100 mL Urethral Catheter Double-lumen;Non-latex 20 Fr. (Active) Placement Date/Time: 06/12/251831 Inserted by: ST Denis, under Dr. Paul's supervision Hand Hygiene Completed: Yes Catheter Type: Double-lumen;Non-latex Tube Size (Fr.): 20 Fr. Difficult Placement: No Number Of Attempts: 1 Urine Re... GEN: Hemodynamically stable HEENT: NCAT RESP: Equal bilateral chest rise, RA CV: Regular rate, appears well perfused ABD: incisions clean dry and intact with abdominal binder in place, soft abdomen. DANILO draining serous fluid : catheter in place, scrotal swelling EXT: SCDs in place, peripheral edema NEURO: awake and alert PSYCH: unable to assess LABS: Results from last 7 days Lab Units 06/19/25 0100 WBC 10*3/uL 13.62* HEMOGLOBIN g/dL 12.1* HEMATOCRIT % 36.3* PLATELETS 10*3/uL 90* Results from last 7 days Lab Units 06/19/25 0100 SODIUM mmol/L 146* POTASSIUM mmol/L 3.6 CHLORIDE mmol/L 111* CO2 mmol/L 25 BUN mg/dL 51* CREATININE mg/dL 1.29* EGFR mL/min/1.73m*2 59.6 GLUCOSE mg/dL 131* CALCIUM mg/dL 8.9 Results from last 7 days Lab Units 06/14/25 0821 COLOR UA Red SPEC GRAV U 1.019 PH UA <=5.0* PROTEIN UR mg/dL 100* GLUCOSE UA mg/dL Negative KETONES UA mg/dL Negative LEUKOCYTES UA Moderate* NITRITE UA Positive* RBC, URINE /HPF >50* WBC, URINE /HPF Unable to estimate due to obscuring RBC's (UNERBC) SQUAMOUS /HPF Unable to estimate due to obscuring RBC's (UNERBC) BACTERIA UR HPF Unable to estimate due to obscuring RBC's (UNERBC) IMAGING: No new imaging to review. HOSPITAL PROBLEM LIST: Principal Problem: Prostate CA (CMS/HCC) Active Problems: Severe obesity (BMI 35.0-39.9) with comorbidity (CMS/HCC) Anemia Hyperlipidemia Leukocytosis Cirrhosis of liver (CMS/HCC) Hyperbilirubinemia Esophageal varices Renal calculi Hypertension Alcohol use disorder SCC (squamous cell carcinoma), leg, left Electrolyte abnormality Hypernatremia Altered mental state ASSESSMENT: Eber Lowe is a 70 y.o. male with hx of cirrhosis (MELD-Na 16), HLD, HTN, kidney stones, esophageal varices, AUD, and prostate cancer who is s/p RALP with bilateral pelvic lymph node dissection complicated by transection of a patent umbilical vein requiring transfusions and ex lap for repair on 06/12/25. Patient is currently on RA. DANILO draining serous fluid today. Urine culture was eq uivocal. Blood culture NGD4. PLAN: - recommend Jockstrap for scrotal elevation - monitor Na levels -continue DANILO drain and martinez catheter -daily AM labs -agree with abdominal binder -MMPC - continue CLD - F/u respiratory culture - f/u BCx - continuw antibiotics to tailor to infection - continue PT/OT - Continue Delirium precaution - free water per ICU Ariadna Vegas MD Cosigned by Dyllan Paul MD at 06/19/2025 1:16 PM EDT Associated attestation - Dyllan Paul MD - 06/19/2025 1:16 PM EDT I saw and evaluated the patient. I discussed the case with the resident/fellow and agree with the findings and plan as documented. * Progress Notes - Lillian Carrera PA - 06/19/2025 8:07 AM EDT Patient had no acute events overnight, remains stable. No further ICU needs at this time, will defer further management to primary team(s). [facility] will sign off. Thank you for involving us in the care of this patient. Please feel free to call or consult for any further needs. * Progress Notes - Fartun See - 06/18/2025 2:26 PM EDT Occupational Therapy Treatment Patient Name: Eber Lowe Today's Date: 06/18/2025 OT Discharge Recommendations: Acute rehab Equipment Recommended: Defer to facility Subjective I want water. Participants in Care Family/Caregiver Present: Yes Family/Caregiver: Spouse Presentation Oxygen Therapy: None (Room air) Lines and Tubes: Telemetry Closed/Suction Drain 1 RUQ Bulb 10 Fr. (Active) Urethral Catheter Double-lumen;Non-latex 20 Fr. (Active) Feeding Tube Gastric 10 Fr. Left nare (Active) Peripheral IV 06/12/25 Left Arm (Active) Peripheral IV 06/13/25 Left;Upper Arm (Active) Peripheral IV 06/13/25 Anterior;Distal;Right;Upper Arm (Active) Pre-Session: Supine, Head of bed elevated, Lines intact Pre-Session Comments: RN agreeable to session. Post-Session: Lines intact, RN notified, Call light in reach, Supine, Bed alarm (zone 1, 2, 3) Post-Session Comments: All needs met; family at bedside. Precautions Medical Precautions: Fall precautions, Post-Surgical precautions Post-Surgical Precautions: Abdominal Objective Pain Scrotal edema- unrated RN aware, positioned for comfort at close of session, scrotal support donned before walking. Delirium Screening RASS: Alert and calm Confusion Assessment Method-ICU (CAM-ICU/PCAM-ICU) Feature 1: Acute Onset or Fluctuating Course: Positive Feature 2: Inattention: Positive Feature 3: Altered Level of Consciousness: Negative Feature 4: Disorganized Thinking: Positive Overall CAM-ICU/PCAM-ICU: Positive Cognition Cognition Overall Cognitive Status: Impaired Arousal/Alertness: Delayed responses to stimuli Mood/Behavior: Alert (Mildly delayed processing) Orientation Level: Oriented to person Orientation Level Comments: Otherwise not tested. Single Step Commands: With increased time, With repetition Multi-Step Commands: With increased time, 75% of the time, With repetition Method of Communication: Verbal, Nodding Safety Judgment: Decreased awareness of need for assistance Awareness of Errors: Assistance required to identify errors made Deficit Awareness: Not aware of deficits Attention Span: Attends with cues to redirect Self-Care Interventions Self Care/Home Management (ADLs) Time Entry: 45 Self_Care Interventions: Pt noted to have incontinent BM in chair, pt unaware due to liquid consistency and cognition. Pt's educated on creating a toileting schedule to decrease bowel incontinence and encourage full emptying of bowels. Pt's verbalized understanding, RN also made aware. Ptrequired mod A to stand from recliner with max cues for sequencing and safety. Pt required max A for posterior hygiene tasks in standing. Pt unable to perform cari-care due to requiring b/l UE support and min A to maintain static/dynmic stance. Barrier cream applied to buttocks and scrotum to improve skin integrity, RN aware of patient's report of pain with wiping/redness due to mulitple incontinent episodes. Pt required rest break, sitting impulsively without reaching back for chair. Pt completed navigation task at hallway level in prep for bathroom level transfers. Pt required mod A to stand from recliner, due to fatigue, and min A to walk in hallway x 15ft with one standing rest break required. Pt with a wide base of support, outside of RW permiter, due to swollen scrotum but this impro chyna with distance. Pt required rest break before completing stand pivot from recliner to edge of bed, max A required to stand from chair and mod A to complete stand pivot back to edge of bed. Pt required max A to return to supine position and dependent A for rolling/scooting to HOB due to fatigue. Lower Extremity Dressing LE Dressing Interventions: Pt required dependent A to don scrotal support brief to decrease pain with mobility. Pt unable to attempt to thread over b/l LE's due to impaired attention to task and impaired dyanmic sitting balance. 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 Assessment Pt participated in OT session with a focus on ADL retraining. Pt tolerated session with fair(-) energy for task, exacerbated by being up to recliner chair for 6 hours prior to session. Pt continues to require significant physical and verbal assistance for all functional transfers and self-care tasks. Pt is at an increased risk of falling secondary to deconditioning and impaired standing balance. Pt continues to benefit from skilled OT services to maximize independence/safety with ADLs and functional mobility. OT Recommendations Discharge Destination: Acute rehab Discharge Equipment: Defer to facility Plan Continue OT POC. Goals OT GOAL DETAILS Goal Established Date Time Frame Goal Status OT Goal 1: Pt will complete total body dressing skills with CGA and appropriate adaptive device. 06/17/25 2 weeks OT Goal 2: Pt will complete toileting skills with CGA and appropriate adaptive device. 06/17/25 2 weeks OT Goal 3: Pt will complete functional transfers with CGA and appropriate adaptive device to increase independence with toilet transfers. 06/17/25 2 weeks OT Goal 4: Pt will complete UE HEP 3x/wk with supervision to increase muscle power needed for ADL tasks. 06/17/25 2 weeks Written by Fartun See on 06/18/25 at 3:11 PM. * Care Plan - Mounika Vila RN - 06/18/2025 1:43 PM EDT Problem: Wound Goal: Optimal Wound Healing Intervention: Promote Wound Healing Note: Patient evaluated by WOCN, individualized orders placed and care plan interventions placed, see wound care note for further details. * Progress Notes - Mounika Vila RN - 06/18/2025 1:35 PM EDT Images from the original note were not included. Wound Care Consult Visit Date: 06/18/2025 Patient Name: Eber Lowe Date of : 1955 Admit Date: 06/12/2025 Reason for Consult: IP Wound Orders (From admission, onward) Start Ordered 06/13/25 1747 Wound ostomy eval and treat Left Pretibial Once Comments: Open area noted to left leg Question: Instructions: Answer: Prior to sending evaluation & treat order, place wound/ostomy LDA, complete a wound/ostomy assessment, and consider taking a photograph to document. 06/13/25 1747 06/13/25 1221 Wound ostomy eval and treat Once Comments: Starting to get a sore on the right side of his mouth on his lip Question: Instructions: Answer: Prior to sending evaluation & treat order, place wound/ostomy LDA, complete a wound/ostomy assessment, and consider taking a photograph to document. 06/13/25 1220 Wound History: Patient states he had a melanoma removed from this location. Wound Assessment: Wound 06/13/25 Surgical Pretibial Left (Active) Date First Assessed/Time First Assessed: 06/13/25 1200 Primary Wound Type: Surgical Location: Pretibial Wound Location Orientation: Left Assessments 06/18/2025 11:55 AM Wound Image Wound Assessment Red Margins Well-defined edges Cari-Wound Assessment [place] Shape linear, full thickness Wound Length (cm) 1 cm Wound Width (cm) 0.5 cm Wound Surface Area (cm^2) 0.39 cm^2 Wound Depth (cm) 0.2 cm Wound Volume (cm^3) 0.052 cm^3 Drainage Description Sanguineous Drainage Amount Scant Treatments Cleansed Dressing Foam Dressing Changed (S) Changed Dressing Status Dressing Changed State of Healing Early/partial granulation Non-staged Wound Description Full thickness Wound Team Summary Assessment: Patient sitting up in chair at the time of visit, left leg with allevyn foam dressing in place. Wound assessed as above. Patient's family states they have been cleansing, applying vaseline and a cover dressing daily. Will continue to recommend cleansing, application of vaseline, will add polymem foam and secure with allevyn. Wound Team Plan: Does not require wound care follow up at this time, please re- consult wound care with new concerns. Mounika Vila RN 06/18/2025 1:35 PM * Progress Notes - Sheryl Huerta RN - 06/18/2025 12:43 PM EDT Referral for acute rehab sent to [facility] via [facility], PM&R consult requested from MD Cai, pt and spouse are agreeable with placement. * Care Plan - Lesia Booth RN - 06/18/2025 10:29 AM EDT Problem: Adult Inpatient Plan of Care Goal: Plan of Care Review Outcome: Ongoing, Progressing Flowsheets (Taken 06/18/2025 08) Progress: improving Plan of Care Reviewed With: spouse Goal: Patient-Specific Goal (Individualized) Outcome: Ongoing, Progressing Goal: Optimal Comfort and Wellbeing Outcome: Ongoing, Progressing Intervention: Monitor Pain and Promote Comfort Flowsheets (Taken 06/18/2025 08) Pain Management Interventions: care clustered pillow support provided Goal: Readiness for Transition of Care Outcome: Ongoing, Progressing Intervention: Mutually Develop Transition Plan Flowsheets (Taken 06/18/2025 08) Patient/Family Anticipated Services at Transition: rehabilitation services Patient/Family Anticipates Transition to: home Problem: Infection Goal: Absence of Infection Signs and Symptoms Outcome: Ongoing, Progressing Intervention: Prevent or Manage Infection Flowsheets (Taken 06/18/2025 08) Infection Management: aseptic technique maintained Fever Reduction/Comfort Measures: lightweight bedding lightweight clothing * Assessment & Plan Note - Lillian Carrera PA - 06/18/2025 9:56 AM EDT Associated Problem(s): Leukocytosis Multifactorial etiology in setting of recent surgery Pancultures MURF and BC NGTD Procal 1.99 Continue empiric Vanc/Zosyn will plan to treat for a total of 5 days (stop date Continue to trend * Assessment & Plan Note - Lillian Carrera PA - 06/18/2025 9:56 AM EDT Associated Problem(s): Cirrhosis of liver (CMS/HCC) MELD 3.0: 26 at 06/14/2025 12:41 AM MELD-Na: 25 at 06/14/2025 12:41 AM Calculated from: Serum Creatinine: 2.36 mg/dL at 06/14/2025 12:41 AM Serum Sodium: 141 mmol/L (Using max of 137 mmol/L) at 06/14/2025 12:41 AM Total Bilirubin: 2.8 mg/dL at 06/12/2025 9:27 PM Serum Albumin: 2.6 g/dL at 06/13/2025 3:35 PM INR(ratio): 1.8 at 06/12/2025 9:27 PM Age at listing (hypothetical): 70 years Sex: Male at 06/14/2025 12:41 AM * Assessment & Plan Note - Lillian Carrera PA - 06/18/2025 9:56 AM EDT Associated Problem(s): Alcohol use disorder 03/28: Reports he is abstinent for 3-4months, then resumes occasional alcohol around 2-3 glasses of wine a few times a week to 2 shots of bourbon a few times a week, last drink about a week ago. Monitor liver function with daily labs - Continue CIWA monitoring - Continue Folate -PETH: 260 was 316 on 03/28/2025. - Continue PO Thiamine * Assessment & Plan Note - Lillian Carrera PA - 06/18/2025 9:56 AM EDT Associated Problem(s): Hyperlipidemia Restart home statin * Assessment & Plan Note - Lillian Carrera PA - 06/18/2025 9:56 AM EDT Associated Problem(s): Anemia Lab Results Component Value Date HGB 12.5 (L) 06/12/2025 , Lab Results Component Value Date HCT 36.2 (L) 06/12/2025 Stable Will continue to monitor Transfuse as appropriate for Hgb>8 Iron, Folate, B12 as appropriate * Assessment & Plan Note - Lillian Carrera PA - 06/18/2025 9:56 AM EDT Associated Problem(s): Hypernatremia 4.2L def. 50mL free water added to TF 5 metolazone with home lasix today. * Assessment & Plan Note - Lillian Carrera PA - 06/18/2025 9:56 AM EDT Associated Problem(s): Altered mental state More alert today than yesterday. Is pleasantly confused, but able to answer some orientation questions correctly. Encouraged up to chair and blinds open during the days. * Assessment & Plan Note - Lillian Carrera PA - 06/18/2025 9:56 AM EDT Associated Problem(s): Prostate CA (CMS/HCC) (Resolved 07/31/2025) 06/12: robot-assisted radical prostatectomy, complicated by severed umbilical vein, 1.3L blood loss Management per primary * Assessment & Plan Note - Lillian Carrera PA - 06/18/2025 9:56 AM EDT Associated Problem(s): Severe obesity (BMI 35.0-39.9) with comorbidity (CMS/HCC) Complicates all aspects of care. * Assessment & Plan Note - Lillian Carrera PA - 06/18/2025 9:56 AM EDT Associated Problem(s): Hyperbilirubinemia T bili 3.7 In setting of AUD related cirrhosis Monitor with daily labs * Assessment & Plan Note - Lillian Carrera PA - 06/18/2025 9:56 AM EDT Associated Problem(s): Esophageal varices EGD 08/13: gr1 ev; moderate PHG no focal liver lesion Takes Coreg daily Restart home medication when appropriate * Assessment & Plan Note - Lillian Carrera PA - 06/18/2025 9:56 AM EDT Associated Problem(s): Renal calculi Resume home medications when appropriate Monitor kidney function with daily labs * Assessment & Plan Note - Lillian Carrera PA - 06/18/2025 9:56 AM EDT Associated Problem(s): Hypertension Resume home medications as appropriate * Assessment & Plan Note - Lillian Carrera PA - 06/18/2025 9:56 AM EDT Associated Problem(s): SCC (squamous cell carcinoma), leg, left Skin biopsy in March 2025 confirmed SCC of left leg Continue to monitor * Assessment & Plan Note - Lillian Carrera PA - 06/18/2025 9:56 AM EDT Associated Problem(s): Electrolyte abnormality Replace per ICU sliding scale protocol. * Progress Notes - Lillian Carrera PA - 06/18/2025 9:49 AM EDTAssociated Order(s): Critical Care Post-Procedure Diagnose(s): Renal calculi; Prostate CA; SCC (squamous cell carcinoma), leg, left; Severe obesity (BMI 35.0-39.9) with comorbidity (CMS/HCC); Alcohol use disorder; Leukocytosis, unspecified type 06/18/25 Eber Lowe Past 24 hours: PM: PRN htn medications. AM: More alert today, but remains pleasantly confused. Restart home coreg. Add free water to TF. Passed bedside swallow, start with clears and advance diet as tolerated. Remove A-line. Decrease lactulose to once daily will titrate to 2-3 BM daily. 40 PO lasix and 5 metolazone today. On RA. Edited by: Lillian Carrera PA at 06/18/2025 0929 Lines/Drains/Tubes: Patient Lines/Drains/Airways Status Active Active LDAs Name Placement date Placement time Site Days Peripheral IV 06/12/25 Left Arm 06/12/25 1518 Arm 5 Peripheral IV 06/13/25 Left;Upper Arm 06/13/25 0414 Arm 5 Peripheral IV 06/13/25 Anterior;Distal;Right;Upper Arm 06/13/25 1045 Arm 4 Closed/Suction Drain 1 RUQ Bulb 10 Fr. 06/12/25 1855 RUQ 5 Urethral Catheter Double-lumen;Non-latex 20 Fr. 06/12/25 1832 -- 5 Arterial Line 06/12/25 Right Radial 06/12/25 2125 Radial 5 Feeding Tube Gastric 10 Fr. Left nare 06/13/25 1438 Left nare 4 GCS: [place] Coma Scale Score: 13 Review of Systems Reason unable to perform ROS: AMS. 14 point ROS reviewed and otherwise negative or unobtainable except as noted above or in HPI. Vital signs: Vitals: 06/18/25 0600 BP: Pulse: 88 Resp: 22 Temp: SpO2: 97% Intake/Output Summary (Last 24 hours) at 06/18/2025 0949 Last data filed at 06/18/2025 0600 Gross per 24 hour Intake 907 ml Output 2035 ml Net -1128 ml Physical Exam Vitals and nursing note reviewed. Constitutional: General: He is not in acute distress. Appearance: He is obese. HENT: Head: Normocephalic. Nose: Comments: DHT present Mouth/Throat: Mouth: Mucous membranes are dry. Eyes: Pupils: Pupils are equal, round, and reactive to light. Cardiovascular: Rate and Rhythm: Normal rate and regular rhythm. Pulses: Normal pulses. Pulmonary: Effort: Pulmonary effort is normal. No respiratory distress. Breath sounds: No wheezing. Abdominal: General: There is no distension. Palpations: Abdomen is soft. Tenderness: There is no abdominal tenderness. Comments: Large abd, DANILO drain present Genitourinary: Comments: Scrotal edema. Martinez present Musculoskeletal: Cervical back: Neck supple. Right lower leg: Edema present. Left lower leg: Edema present. Skin: General: Skin is warm. Capillary Refill: Capillary refill takes less than 2 seconds. Neurological: Mental Status: He is disoriented. GCS: GCS eye subscore is 4. GCS verbal subscore is 4. GCS motor subscore is 6. Comments: Pleasantly confused Last BM: Labs in last 18 hours: CBC WBC 12.86 (H) Hb 12.0 (L) Plt 93 (L) Hct 35.2 (L) ANC ?? INR ??, PTT ??, Anti-Xa ?? BMP Na 151 (H) Cl 118 (H) BUN 52 (H) Glu 160 (H) K 3.8 Co2 24 Cr 1.23 (H) Ca 9.0 iCa 5.1 Mg 2.3, Phos 3.1 Lactate 1.6 LFT AST ?? AlkPhos ?? T Prot ?? ALK ?? Bili ?? Alb ?? D.Bili ?? Imaging if available: === 06/12/25 === XR CHEST 1 VIEW - Narrative - CLINICAL INDICATION: lung field eval TECHNIQUE: XR CHEST 1 VIEW COMPARISON: 06/16/2025 FINDINGS: Stable support devices. Prominence of the right hilum, likely positional. Low lung volumes. No interval change in bilateral diffuse interstitial thickening. No pleural effusion or pneumothorax. Normal size cardiac silhouette. Nonaggressive appearing sclerotic lesion in the proximal left humerus. - Impression - No significant interval change CRITICAL RESULT: No. COMMUNICATION: Per this written report. By electronically signing this report, I, the attending physician, attest that I have personally reviewed the images/data for the above examination(s) and agree with the final edited report. Drafted by Caleb De La Cruz MD on 06/17/2025 8:04 AM Final report signed by Melissa Fleming MD on 06/17/2025 9:45 AM Reviewed and agree with above. Assessment and Plan: Assessment & Plan Prostate CA (CMS/HCC) Present on Admission: Yes 06/12: robot-assisted radical prostatectomy, complicated by severed umbilical vein, 1.3L blood loss Management per primary Severe obesity (BMI 35.0-39.9) with comorbidity (CMS/HCC) Present on Admission: Unknown Complicates all aspects of care. Anemia Present on Admission: No Lab Results Component Value Date HGB 12.5 (L) 06/12/2025 , Lab Results Component Value Date HCT 36.2 (L) 06/12/2025 Stable Will continue to monitor Transfuse as appropriate for Hgb>8 Iron, Folate, B12 as appropriate Hyperlipidemia Present on Admission: Yes Restart home statin Leukocytosis Present on Admission: No Multifactorial etiology in setting of recent surgery Pancultures MURF and BC NGTD Procal 1.99 Continue empiric Vanc/Zosyn will plan to treat for a total of 5 days (stop date Continue to trend Cirrhosis of liver (CMS/HCC) Present on Admission: Yes MELD 3.0: 26 at 06/14/2025 12:41 AM MELD-Na: 25 at 06/14/2025 12:41 AM Calculated from: Serum Creatinine: 2.36 mg/dL at 06/14/2025 12:41 AM Serum Sodium: 141 mmol/L (Using max of 137 mmol/L) at 06/14/2025 12:41 AM Total Bilirubin: 2.8 mg/dL at 06/12/2025 9:27 PM Serum Albumin: 2.6 g/dL at 06/13/2025 3:35 PM INR(ratio): 1.8 at 06/12/2025 9:27 PM Age at listing (hypothetical): 70 years Sex: Male at 06/14/2025 12:41 AM Hyperbilirubinemia Present on Admission: Yes T bili 3.7 In setting of AUD related cirrhosis Monitor with daily labs Esophageal varices Present on Admission: Yes EGD 08/13: gr1 ev; moderate PHG no focal liver lesion Takes Coreg daily Restart home medication when appropriate Renal calculi Present on Admission: Yes Resume home medications when appropriate Monitor kidney function with daily labs Hypertension Present on Admission: Yes Resume home medications as appropriate Alcohol use disorder Present on Admission: Yes 03/28: Reports he is abstinent for 3-4months, then resumes occasional alcohol around 2-3 glasses of wine a few times a week to 2 shots of bourbon a few times a week, last drink about a week ago. Monitor liver function with daily labs - Continue CIWA monitoring - Continue Folate -PETH: 260 was 316 on 03/28/2025. - Continue PO Thiamine SCC (squamous cell carcinoma), leg, left Present on Admission: Yes Skin biopsy in March 2025 confirmed SCC of left leg Continue to monitor Electrolyte abnormality Present on Admission: No Replace per ICU sliding scale protocol. Hypernatremia Present on Admission: Unknown 4.2L def. 50mL free water added to TF 5 metolazone with home lasix today. Altered mental state Present on Admission: Unknown More alert today than yesterday. Is pleasantly confused, but able to answer some orientation questions correctly. Encouraged up to chair and blinds open during the days. Critical Care Performed by: Lillian Carrera PA Authorized by: Lillian Carrera PA Critical care provider statement: Critical care time (minutes): 45 Critical care was time spent personally by me on the following activities: Development of treatmentplan with patient or surrogate, examination of patient, discussions with consultants, evaluation ofpatient's response to treatment, ordering and review of radiographic studies, ordering and review of laboratory studies and ordering and performing treatments and interventions Comments: The patient is critically ill with: Prostate cancer, Electrolyte abnormalities, renal calculi, Hypertension, and liver cirrhosis. They require complex decision making. The patient was seen on rounds with critical care physician, Dr. Russell Richardson and they are in agreement with the plan of care. Pharmacy, respiratory and nursing services were present on rounds. JENNIFER Lee * Progress Notes - Carol Lott I - 06/18/2025 8:42 AM EDT Physical Therapy Treatment Patient Name: Eber Lowe Today's Date: 06/18/2025 PT Discharge Recommendations: Acute rehab Equipment Recommended: Defer to facility Subjective Patient pleasantly confused. Oriented to name, month/day, current month/day, and place. I wantwater. Participants in Care Family/Caregiver Present: Yes Family/Caregiver: Spouse, Adult Son Presentation Oxygen Therapy: None (Room air) O2 Delivery Method: Nasal cannula O2 Flow Rate (L/min): 4 L/min Lines and Tubes: Telemetry Closed/Suction Drain 1 RUQ Bulb 10 Fr. (Active) Urethral Catheter Double-lumen;Non-latex 20 Fr. (Active) Feeding Tube Gastric 10 Fr. Left nare (Active) Peripheral IV 06/12/25 Left Arm (Active) Peripheral IV 06/13/25 Left;Upper Arm (Active) Peripheral IV 06/13/25 Anterior;Distal;Right;Upper Arm (Active) Pre-Session: Supine, Head of bed elevated, Lines intact Pre-Session Comments: RN agreeable to transfer to recliner chair Post-Session: Sitting in chair, Lines intact, RN notified, Chair alarm, Call light in reach Post-Session Comments: All needs met; family at bedside. RN aware no green box present. Precautions Medical Precautions: Fall precautions, Post-Surgical precautions Post-Surgical Precautions: Abdominal Objective Pain Patient noted with facial grimace during adjustment of scrotum and cari-care. PT provided scrotal support with jock-strap and scrotal elevation for edema management. Patient positioned for comfort with pillow support at conclusion of session. Delirium Screening RASS: Drowsy Confusion Assessment Method-ICU (CAM-ICU/PCAM-ICU) Feature 1: Acute Onset or Fluctuating Course: Positive Feature 2: Inattention: Positive Feature 3: Altered Level of Consciousness: Positive Feature 4: Disorganized Thinking: Positive Overall CAM-ICU/PCAM-ICU: Positive Bed Mobility Bed Mobility Exam: Scooting/Bridging Level of [place]: Contact guard (to scoot EOB in sitting) Physical/Nonphysical Assist: Verbal Cues, Nonverbal cues (demo/gestures), Additional assist utilized for safety, Minimal cues Assistive Device: Bed rails Bed Mobility Exam: Supine to Sit Level of [place]: Minimum assist (75% patient's effort) Physical/Nonphysical Assist: Verbal Cues, HOB elevated, Nonverbal cues (demo/gestures), Additional assist utilized for safety, Minimal cues Assistive Device: Bed rails Bed Mobility Exam: Sit to Supine Level of [place]: Moderate assist (50% patient's effort) Physical/Nonphysical Assist: Verbal Cues, Nonverbal cues (demo/gestures), Moderate cues, 1 person +1 person to manage equipment, Additional assist utilized for safety Transfers Transfer Interventions: PT provided verbal cues to keep one UE on a stable surface prior to transitional movements for safety as patient attempting to pull on AD with bilateral UE's. Cues also provided to reach back to surface prior to sitting for safety and eccentric control. Patient performed 4 non-consecutive STS throughout treatments. Transfer Exam: Sit to stand Level of [place]: Moderate assist (50% patient's effort) (regressing to maxA) Physical/Nonphysical Assist: Maximal cues, Verbal Cues, Nonverbal cues (demo/gestures), 1 person + 1 person to manage equipment, Additional assist utilized for safety Assistive Device: Walker, rolling Transfer Exam: Stand to Sit Level of [place]: Moderate assist (50% patient's effort) (regressing to maxA) Physical/Nonphysical Assist: Verbal Cues, Nonverbal cues (demo/gestures), 1 person + 1 person to manage equipment, Maximal cues, Additional assist utilized for safety Assistive Device: Walker, rolling Transfer Exam: Bed to Chair/Chair to Bed Level of [place]: Minimum assist (75% patient's effort) Physical/Nonphysical Assist: Verbal Cues, Maximal cues, 1 person + 1 person to manage equipment, Nonverbal cues (demo/gestures), Additional assist utilized for safety Type of Transfer: Sidesteps Assistive Device: Hand held assist Ambulation Device: Rolling walker Apparatus: Chair follow Assistance: Minimum assistance Distance : 15' Ambulation Comments: Patient ambulates with wide ELAYNE secondary to scrotal swelling, decreased bilateral step length, increased lateral sway without over LOB, and limited by fatigue. PT provided verbal cues for safe AD proximity, hand placement on RW handles, pacing, and safety with line management. Balance Postural Appearance Posture: Within Functional Limits Static Sitting Balance Static Sitting-Balance Support: Feet supported Static Sitting-Level of Assistance: Contact guard Dynamic Sitting Balance Dynamic Sitting-Balance Support: Feet supported Dynamic Sitting-Balance: Anterior/Posterior weight shifts, Lateral weight shifts Level of Assistance: Minimum assistance Static Standing Balance Static Standing-Balance Support: Right upper extremity support, Left upper extremity support Static Standing-Level of Assistance: Minimum assistance Dynamic Standing Balance Dynamic Standing-Balance Support: Left upper extremity support, Right upper extremity support Dynamic Standing-Balance: Lateral weight shifts, Anterior/Posterior weight shifts Dynamic Standing Level of Assistance: Minimum assistance Therapeutic Activity (41 minutes) Patient participated in therapeutic activity focused on increasing tolerance to functional tasks and increasing independence with bed mobility, transfers, and patient education regarding HEP and mobility. PT provided skilled management of medical lines/tubes and environmental set-up to ensure safety and reduce fall risk during with mobility. PT assisted patient in AM to transfer to recliner chairwith max assist to wash face and brush teeth. PT returned in PM for gait training and returning patient supine. Standardized Assessments Standardized Assessments Standardized Assessments: AMPAC 6-Clicks Mobility Assessment AMPAC 6-Clicks Mobility Assessment Difficulty patient has turning over in bed (including adjusting bedclothes, sheets, and blankets)?:A little Difficulty patient has sitting down on and standing up from a chair with arms (wheelchair, bedside commode, etc.)?: A little Difficulty patient has moving from lying on back to sitting on the side of the bed?: A little How much help does the patient need moving to and from a bed to a chair (including a wheelchair)?: A little How much help does the patient need to walk in hospital room?: A little How much help does the patient need climbing 3-5 steps with a railing?: A lot AMPAC 6-Clicks Mobility Assessment Total : 17 Assessment Patient demonstrates improved activity tolerance this session as evidenced by increased alertness, increased communication, and ambulation tolerance this session. Patient continues to be most limitedby impaired cognition, lethargy, generalized weakness, and poor dynamic standing balance. Patient remains a high fall risk and is unsafe to return home. Patient remains most appropriate for dischargeto acute rehab to maximize independence and decrease caregiver burden. Patient may continue to benefit from skilled PT to address patient's impairments, reduce patient's participation restrictions and activity limitations, and maximize independence. PT Recommendations Discharge Destination: Acute rehab Discharge Equipment: Defer to facility Plan Continue per POC. PT Goals PT GOAL DETAILS Goal Established Date Time Frame Goal Status PT Goal 1: Patient will demonstrate supine <> sit with SBA from a flat surface 06/17/25 2 weeks PT Goal 2: Patient will demonstrate STS with SBA and least restrictive assitive device 06/17/25 2 weeks PT Goal 3: Patient will ambulate 150 feet with SBA and least restrictive assistive device 06/17/25 2 weeks PT Goal 4: Patient will navigate 2 stairs with SBA and UE assistance on hand rail 06/17/25 2 weeks Written by Carol Lott on 06/18/25 at 3:58 PM. * Progress Notes - Ariadna Ken MD - 06/18/2025 7:39 AM EDT [facility] Inpatient Progress Note Primary Attending: Dyllan Paul MD Procedure(s): RALP with bilateral pelvic lymph node dissection requiring ex-lap 06/12/25 SUBJECTIVE: The patient is currently on 2LNC this morning. Patient responds to verbal and tactile stimulus. He was able to answer questions using head movements for yes and no. Patient acknowledges scrotal tenderness and denies abdominal pain. Scrotal swelling has continued to increase. His DANILO drain has similar chylous fluid to yesterday. PHYSICAL EXAM: Temp: [36.3 ??C (97.4 ??F)-36.9 ??C (98.5 ??F)] 36.9 ??C (98.5 ??F) Heart Rate: [83-99] 88 Resp: [12-22] 22 SpO2: [94 %-100 %] 97 % I O Shift I O 24Hrs LDAs No intake/output data recorded. I/O last 3 completed shifts: In: 1907 (17.6 mL/kg) [I.V.:602 (5.6 mL/kg); NG/GT:905; IV Piggyback:400] Out: 3545 (32.8 mL/kg) [Urine:2350 (0.6 mL/kg/hr); Drains:1195] Weight: 108.2 kg Closed/Suction Drain 1 RUQ Bulb 10 Fr. (Active) Placement Date/Time: 06/12/251854 Inserted by: Dyllan Paul MD Hand Hygiene Completed: Yes Tube Number: 1 Location: RUQ Drain Tube Type: Bulb Size (Fr.): 10 Fr. Drain [place] Size (mL): 100 mL Urethral Catheter Double-lumen;Non-latex 20 Fr. (Active) Placement Date/Time: 06/12/251831 Inserted by: ST Denis, under Dr. Paul's supervision Hand Hygiene Completed: Yes Catheter Type: Double-lumen;Non-latex Tube Size (Fr.): 20 Fr. Difficult Placement: No Number Of Attempts: 1 Urine Re... GEN: Hemodynamically stable HEENT: NCAT RESP: Equal bilateral chest rise, 2LNC CV: Regular rate, appears well perfused ABD: incisions clean dry and intact with abdominal binder in place, soft abdomen. DANILO draining similar chylous fluid as yesterday : catheter in place draining gill clots. Increased scrotal swelling EXT: SCDs in place, peripheral edema NEURO: sedated PSYCH: unable to assess LABS: Results from last 7 days Lab Units 06/17/25 2358 WBC 10*3/uL 12.86* HEMOGLOBIN g/dL 12.0* HEMATOCRIT % 35.2* PLATELETS 10*3/uL 93* Results from last 7 days Lab Units 06/17/25 2358 SODIUM mmol/L 151* POTASSIUM mmol/L 3.8 CHLORIDE mmol/L 118* CO2 mmol/L 24 BUN mg/dL 52* CREATININE mg/dL 1.23* EGFR mL/min/1.73m*2 63.2 GLUCOSE mg/dL 160* CALCIUM mg/dL 9.0 Results from last 7 days Lab Units 06/14/25 0821 COLOR UA Red SPEC GRAV U 1.019 PH UA <=5.0* PROTEIN UR mg/dL 100* GLUCOSE UA mg/dL Negative KETONES UA mg/dL Negative LEUKOCYTES UA Moderate* NITRITE UA Positive* RBC, URINE /HPF >50* WBC, URINE /HPF Unable to estimate due to obscuring RBC's (UNERBC) SQUAMOUS /HPF Unable to estimate due to obscuring RBC's (UNERBC) BACTERIA UR HPF Unable to estimate due to obscuring RBC's (UNERBC) IMAGING: All personally reviewed === 06/12/25 === XR CHEST 1 VIEW - Narrative - CLINICAL INDICATION: lung field eval TECHNIQUE: XR CHEST 1 VIEW COMPARISON: 06/16/2025 FINDINGS: Stable support devices. Prominence of the right hilum, likely positional. Low lung volumes. No interval change in bilateral diffuse interstitial thickening. No pleural effusion or pneumothorax. Normal size cardiac silhouette. Nonaggressive appearing sclerotic lesion in the proximal left humerus. - Impression - No significant interval change CRITICAL RESULT: No. COMMUNICATION: Per this written report. By electronically signing this report, I, the attending physician, attest that I have personally reviewed the images/data for the above examination(s) and agree with the final edited report. Drafted by Caleb De La Cruz MD on 06/17/2025 8:04 AM Final report signed by Melissa Fleming MD on 06/17/2025 9:45 AM === 06/12/25 === CT HEAD WO IV CONTRAST - Narrative - CLINICAL INDICATION: Mental status change, unknown cause TECHNIQUE: Spiral axial CT images of the head were obtained without contrast administration. Total DLP (Dose-Length Product): 1081.99 mGy.cm. Please note: The reported value represents the total of one or more individual components during the CT acquisition on this date and at this time, andas such, the same value may appear in more than one CT report depending on the interpreting/reporting physicians. COMPARISON: None. FINDINGS: Diagnostic Quality: Adequate. The ventricles and sulci are enlarged consistent with brain parenchymal volume loss. There is no acute large cortical infarct, intracranial hemorrhage or large mass on this noncontraststudy. Soft Tissues: No significant soft tissue swelling is present. Skull: There are no calvarial destructive lesions or fractures. Sinuses and Mastoids: There is a small mucous retention cyst in right maxillary sinus. The mastoid air cells are clear. Enteric tube is visible in left nasal cavity. - Impression - 1. No acute intracranial abnormality. 2. Senescent changes, as described. CRITICAL RESULT: No. COMMUNICATION: Per this written report. Drafted by Vira Siddiqui MD on 06/17/2025 12:49 PM Final report signed by Vira Siddiqui MD on 06/17/2025 12:54 PM HOSPITAL PROBLEM LIST: Principal Problem: Prostate CA (CMS/HCC) Active Problems: Severe obesity (BMI 35.0-39.9) with comorbidity (CMS/HCC) On mechanically assisted ventilation (CMS/HCC) Anemia Hyperlipidemia Leukocytosis Cirrhosis of liver (CMS/HCC) Hyperbilirubinemia Esophageal varices Renal calculi Hypertension Alcohol use disorder SCC (squamous cell carcinoma), leg, left Electrolyte abnormality Hypotension Hypocalcemia Metabolic encephalopathy ASSESSMENT: Eber Lowe is a 70 y.o. male with hx of cirrhosis (MELD-Na 16), HLD, HTN, kidney stones, esophageal varices, AUD, and prostate cancer who is s/p RALP with bilateral pelvic lymph node dissection complicated by transection of a patent umbilical vein requiring transfusions and ex lap for repair on 06/12/25. Patient is currently on 2LNC. DANILO draining chylous fluid today similar to yesterd ay. CXR shows stable bilateral pleural effusions and basal atelectasis vs. Yesterday. CT Head was negative for acute intracranial abnormality. Urine culture was equivocal. Blood culture NGD3. PLAN: - recommend Jockstrap for scrotal elevation - monitor Na levels -continue DANILO drain and martinez catheter -NPO + mIVF -daily AM labs -agree with abdominal binder -MMPC - C/w tube feeds - F/u respiratory culture - f/u BCx - c/w antibiotics to tailor to infection - c/w PT/OT - C/w Delirium precaution - free water per ICU -urology will closely follow/ Ariadna Vegas MD Cosigned by Dyllan Paul MD at 06/19/2025 9:39 AM EDT Associated attestation - Dyllan Paul MD - 06/19/2025 9:39 AM EDT I saw and evaluated the patient with the resident/fellow. I discussed the case with the resident/fellow and agree with the findings and plan as documented. * Consults - Waqar Beatty - 06/17/2025 4:52 PM EDT Patient Profile Pastoral Care Provided For Patient; Spouse; Child(terrence) Consult Reasons Emotional support; Family support Referral From Motivational Speaker Initiated Spiritual Assessment Support Systems/ Spiritual Resources Sir[place]; Family; Prayer Spiritual Needs Emotional support; Prayer; Spiritual support Spiritual Issues Chronic pain/ illness; Critical Illness Interventions Interventions Provided Emotional support; Family support; Prayer; Identify gnosticism/ spiritual coping; Introduced Patient/Family to Motivational Speaker Services; Supportive Listening; Spiritual support Outcomes Patient Outcomes Demonstrates lower level of Anxious(ness); Is knowledgeable about Student Education Specialist Services; Appreciative of Motivational Speaker Support; Identifies spiritual or gnosticism practices as helpful Follow-Up Last Date of Pastoral Care Contact 06/17/2025 Pastoral Care Comment An introductory visit with patient and family, spouse and son, and provided emotional support. Spouse spoke about patient condition and mentioned that he is doing a lot better today. Motivational Speaker provided a supportive presence, empathic listening, and a prayer per spouse's request. Pastoral care will continue to be available as needed. * Progress Notes - Carol Lott I - 06/17/2025 2:58 PM EDT Physical Therapy Evaluation Patient Name: Eber Lowe Today's Date: 06/17/2025 PT Discharge Recommendations: Acute rehab Equipment Recommended: Defer to facility History Eber Lowe is 70 y.o. male admitted 06/12/2025 for work-up of Prostate CA ([facility]). Problem List Active Hospital Problems Diagnosis Date Noted Metabolic encephalopathy 06/17/2025 Hypotension 06/13/2025 Hypocalcemia 06/13/2025 Prostate CA ([facility]/HCC) 06/12/2025 On mechanically assisted ventilation ([facility]) 06/12/2025 Anemia 06/12/2025 Hyperlipidemia 06/12/2025 Leukocytosis 06/12/2025 Cirrhosis of liver ([facility]) 06/12/2025 Hyperbilirubinemia 06/12/2025 Esophageal varices 06/12/2025 Renal calculi 06/12/2025 Hypertension 06/12/2025 Alcohol use disorder 06/12/2025 SCC (squamous cell carcinoma), leg, left 06/12/2025 Electrolyte abnormality 06/12/2025 Severe obesity (BMI 35.0-39.9) with comorbidity ([facility]) 06/03/2025 Procedures 06/12/2025 Procedure(s): PROSTATECTOMY, RADICAL, ROBOT-ASSISTED Past Medical History Patient has a past medical history of Cancer ([facility]) (january 26, 2025), Cirrhosis ([facility]) (2021),History of methicillin resistant Staphylococcus aureus (2011), Hyperlipidemia, Hypertension, Kidneystone (various), and Substance abuse (alcohol). Past Surgical History Patient has a past surgical history that includes Cholecystectomy (2009); Knee arthroscopy w/ meniscal repair; Umbilical hernia repair; and Other surgical history. Precautions Medical Precautions: Fall precautions, Post-Surgical precautions Post-Surgical Precautions: Abdominal Subjective Patient agreeable to PT session. Patient with minimal verbal conversation throughout; able to state water , Robby , and Lowe . Participants in Care Family/Caregiver Present: Yes Family/Caregiver: Spouse, Adult Son Presentation Oxygen Therapy: Supplemental oxygen O2 Delivery Method: Nasal cannula O2 Flow Rate (L/min): 4 L/min Lines and Tubes: Telemetry Arterial Line 06/12/25 Right Radial (Active) Closed/Suction Drain 1 RUQ Bulb 10 Fr. (Active) Urethral Catheter Double-lumen;Non-latex 20 Fr. (Active) Feeding Tube Gastric 10 Fr. Left nare (Active) Peripheral IV 06/12/25 Left Arm (Active) Peripheral IV 06/13/25 Left;Upper Arm (Active) Peripheral IV 06/13/25 Anterior;Distal;Right;Upper Arm (Active) Pre-Session: Supine, Head of bed elevated, Lines intact Pre-Session Comments: RN consent to evaluation Post-Session: Sitting in chair, Lines intact, RN notified, Chair alarm, Call light in reach Post-Session Comments: All needs met; family at bedside. RN aware no green box present. Home Living/Set-up Lives With: Spouse Home Type: House Home Adaptive Equipment: None Home Layout: Stairs to enter without rails (1.5 level; Bedroom/bathroom on main level) Number of Stairs: 2 Bathroom: Tub/Shower: Tub/Shower combo Bathroom: Toilet: Standard Prior Level of Function Receives Help From: No assist required prior to admission Level of Mobility: Ambulatory- community Mobility [place]: Independent gait without device History of Falls: No ADL Performance: Independent Patient/Family Goals To drink water Objective Pain Patient denies pain and no indications of pain throughout session. Patient positioned for comfort and pressure relief with pillow support at conclusion of session. Delirium Screening RASS: Drowsy Confusion Assessment Method-ICU (CAM-ICU/PCAM-ICU) Feature 1: Acute Onset or Fluctuating Course: Positive Feature 2: Inattention: Positive Feature 3: Altered Level of Consciousness: Positive Feature 4: Disorganized Thinking: Positive Overall CAM-ICU/PCAM-ICU: Positive Cognition Overall Cognitive Status: Impaired Arousal/Alertness: Delayed responses to stimuli Mood/Behavior: Lethargic Orientation Level: Oriented to person Orientation Level Comments: States name and month/day Single Step Commands: With repetition, With increased time, 50% of the time Multi-Step Commands: Unable to follow commands Method of Communication: Mouthing, Verbal, Nodding Cognition Interventions: Minimal communication throughout Right Upper Extremity Examination RUE Assessment: Within Functional Limits (AAROM- edema present) Manual Muscle Testing - RUE: (Difficult to assess due to cognitive deficits. Accounts Receivable Accountant strength 3/5, otherwise 2-/5 based on observation.) Sensation Light Touch: Right Upper Extremity: Intact Left Upper Extremity Examination LUE ROM Assessment LUE Assessment: Within Functional Limits (AAROM) Manual Muscle Testing - LUE Manual Muscle Testing - LUE: (Difficult to assess due to cognitive deficits. Accounts Receivable Accountant strength 3/5, otherwise 2-/5 based on observation.) Sensation Light Touch: Left Upper Extremity: Intact Right Lower Extremity Examination RLE ROM Assessment RLE Assessment: Within Functional Limits Manual Muscle Testing - RLE Manual Muscle Testing - RLE: (Grossly 3+/5 observed) Sensation Light Touch: Right Lower Extremity: Intact (per patient report) Left Lower Extremity Examination LLE Assessment: Within Functional Limits Manual Muscle Testing: (Grossly 3+/5 observed) Sensation Light Touch: Left Lower Extremity: Intact (per patient report) Bed Mobility Bed Mobility Exam: Scooting/Bridging Level of [place]: Moderate assist (50% patient's effort) (progressing to CGA; to scoot anterior/posteriorly) Physical/Nonphysical Assist: Verbal Cues, Moderate cues, Nonverbal cues (demo/gestures), Additionalassist utilized for safety Assistive Device: Other (draw sheet) Bed Mobility Exam: Supine to Sit Level of [place]: Moderate assist (50% patient's effort) Physical/Nonphysical Assist: Verbal Cues, Maximal cues, HOB elevated, Nonverbal cues (demo/gestures), Additional assist utilized for safety Assistive Device: Other (Draw sheet) Transfers Transfer Interventions: PT provided verbal cues for hand placement on therapists elbows, sequencing, and safety with line management. Subsequent stand x 30s with minor lateral wavering without overt LOB. Transfer Exam: Sit to stand Level of [place]: Moderate assist (50% patient's effort) (x 2 reps from bed and recliner chair) Physical/Nonphysical Assist: Maximal cues, Verbal Cues, Nonverbal cues (demo/gestures), 1 person + 1 person to manage equipment, Additional assist utilized for safety Assistive Device: Walker, rolling Transfer Exam: Stand to Sit Level of [place]: Moderate assist (50% patient's effort) Physical/Nonphysical Assist: Verbal Cues, Nonverbal cues (demo/gestures), 1 person + 1 person to manage equipment, Maximal cues, Additional assist utilized for safety Assistive Device: Walker, rolling Transfer Exam: Bed to Chair/Chair to Bed Level of [place]: Moderate assist (50% patient's effort) Physical/Nonphysical Assist: Verbal Cues, Maximal cues, 1 person + 1 person to manage equipment, Nonverbal cues (demo/gestures), Additional assist utilized for safety Type of Transfer: Sidesteps Assistive Device: Walker, rolling Ambulation Unable to progress secondary to cognition/safety. Balance Postural Appearance Posture: Within Functional Limits Static Sitting Balance Static Sitting-Balance Support: Feet supported Static Sitting-Level of Assistance: Moderate assistance (at EOB progressing to CGA) Dynamic Sitting Balance Dynamic Sitting-Balance Support: Feet supported Dynamic Sitting-Balance: Anterior/Posterior weight shifts, Lateral weight shifts Level of Assistance: Moderate assistance (progressing to CGA) Static Standing Balance Static Standing-Balance Support: Right upper extremity support, Left upper extremity support Static Standing-Level of Assistance: Minimum assistance Dynamic Standing Balance Dynamic Standing-Balance Support: Left upper extremity support, Right upper extremity support Dynamic Standing-Balance: Lateral weight shifts, Anterior/Posterior weight shifts Dynamic Standing Level of Assistance: Moderate assistance Therapeutic Activity (47 minutes) Patient participated in therapeutic activity focused on increasing tolerance to functional tasks and increasing independence with bed mobility, transfers, and patient education regarding HEP and mobility. PT provided skilled management of medical lines/tubes and environmental set-up to ensure safety and reduce fall risk during with mobility. PT provided family education for delirium precautions, PT POC in acute and inpatient rehab setting, and benefits of sitting in recliner chair for improved lung health and cognition. PT provided scrotal elevation at end of session for scrotal edema. Standardized Assessments Standardized Assessments Standardized Assessments: [facility] [facility] [place] 6-Clicks Mobility Assessment [facility] [place] 6-Clicks Mobility Assessment Difficulty patient has turning over in bed (including adjusting bedclothes, sheets, and blankets)?:A little Difficulty patient has sitting down on and standing up from a chair with arms (wheelchair, bedside commode, etc.)?: A little Difficulty patient has moving from lying on back to sitting on the side of the bed?: A little How much help does the patient need moving to and from a bed to a chair (including a wheelchair)?: A little How much help does the patient need to walk in hospital room?: A lot How much help does the patient need climbing 3-5 steps with a railing?: Unable [facility] [place] 6-Clicks Mobility Assessment Total : 15 Assessment Patient demonstrates impairments listed below limiting functional mobility and participation in ADL's. Patient most limited this session by impaired cognition following extubation. Patient has good social support from his family upon discharge as needed. Patient was previously independent with mobility/ADL's and is currently requiring assistance for all mobility making patient unsafe to return home due to increased risk of falls and re-hospitalization. Patient would benefit from discharge to acute rehab to maximize independence with functional mobility to ensure a safe transition to home environment. Patient would benefit from continued skilled PT during the remainder of hospital stay to address identified impairments for improved functional mobility and improved activity tolerance. Impairments: Decreased endurance, ventilation, and/or gas exchange, Impaired functional mobility/transfers, Decreased strength, Impaired motor cordination/control, Impaired attention/alertness, Impaired cognition/safety awareness, Impaired gait dynamics/performance, Impaired balance, Impaired motor planning, Decreased range of motion, Pain Activity Limitations: Inability to ambulate community distances, Inability to complete ADLs independently, Inability to sit independently, Impaired attention/alertness, Inability to ambulate household distances, Inability to transfer independently, Inability to ambulate independently Participation Restrictions: Self-care, Home management, Community leisure Activity Tolerance: Tolerates 30 min activity with multiple rests Evaluation/Treatment Tolerance: Patient limited by fatigue Diagnosis: Decreased functional mobility Rehab Potential: Good, to achieve stated therapy goals Eval Complexity History Profile: 3 or more personal factors and/or comorbidities Clinical Presentation: Evolving clinical presentation with changing characteristics Clinical Decision Making: Moderate complexity PT Recommendations Discharge Destination: Acute rehab Discharge Equipment: Defer to facility Plan Planned PT Interventions Balance training, Bed mobility training, Transfer training, Gait training, Motor coordination training, ROM, Strengthening, Functional Mobility, Caregiver training PT Frequency 2 - 5 times per week PT Duration 2 weeks Goals PT GOAL DETAILS Time Frame PT Goal 1: Patient will demonstrate supine <> sit with SBA from a flat surface 2 weeks PT Goal 2: Patient will demonstrate STS with SBA and least restrictive assitive device 2 weeks PT Goal 3: Patient will ambulate 150 feet with SBA and least restrictive assistive device 2 weeks PT Goal 4: Patient will navigate 2 stairs with SBA and UE assistance on hand rail 2 weeks Written by Carol Lott on 06/17/25 at 3:52 PM. * Progress Notes - Fartun See - 06/17/2025 2:45 PM EDT Occupational Therapy Evaluation Patient Name: Eber Lowe Today's Date: 06/17/2025 OT Discharge Recommendations: Acute rehab Equipment Recommended: Defer to facility History Eber Lowe is 70 y.o. male admitted 06/12/2025 for work-up of Prostate CA ([facility]). Problem List Active Hospital Problems Diagnosis Date Noted Metabolic encephalopathy 06/17/2025 Hypotension 06/13/2025 Hypocalcemia 06/13/2025 Prostate CA ([facility]) 06/12/2025 On mechanically assisted ventilation ([facility]) 06/12/2025 Anemia 06/12/2025 Hyperlipidemia 06/12/2025 Leukocytosis 06/12/2025 Cirrhosis of liver ([facility]) 06/12/2025 Hyperbilirubinemia 06/12/2025 Esophageal varices 06/12/2025 Renal calculi 06/12/2025 Hypertension 06/12/2025 Alcohol use disorder 06/12/2025 SCC (squamous cell carcinoma), leg, left 06/12/2025 Electrolyte abnormality 06/12/2025 Severe obesity (BMI 35.0-39.9) with comorbidity ([facility]) 06/03/2025 Procedures 06/12/2025 Procedure(s): PROSTATECTOMY, RADICAL, ROBOT-ASSISTED Past Medical History Patient has a past medical history of Cancer ([facility]) (january 26, 2025), Cirrhosis ([facility]) (2021),History of methicillin resistant Staphylococcus aureus (2011), Hyperlipidemia, Hypertension, Kidneystone (various), and Substance abuse (alcohol). Past Surgical History Patient has a past surgical history that includes Cholecystectomy (2009); Knee arthroscopy w/ meniscal repair; Umbilical hernia repair; and Other surgical history. Precautions Medical Precautions: Fall precautions, Post-Surgical precautions Post-Surgical Precautions: Abdominal Subjective Robby Pt able to state name and mouthed last name. Participants in Care Family/Caregiver Present: Yes Family/Caregiver: Spouse, Adult Son Presentation Oxygen Therapy: Supplemental oxygen O2 Delivery Method: Nasal cannula O2 Flow Rate (L/min): 4 L/min Lines and Tubes: Telemetry Arterial Line 06/12/25 Right Radial (Active) Closed/Suction Drain 1 RUQ Bulb 10 Fr. (Active) Urethral Catheter Double-lumen;Non-latex 20 Fr. (Active) Feeding Tube Gastric 10 Fr. Left nare (Active) Peripheral IV 06/12/25 Left Arm (Active) Peripheral IV 06/13/25 Left;Upper Arm (Active) Peripheral IV 06/13/25 Anterior;Distal;Right;Upper Arm (Active) Pre-Session: Supine, Head of bed elevated, Lines intact Pre-Session Comments: RN consent to evaluation Post-Session: Sitting in chair, Lines intact, RN notified, Chair alarm, Call light in reach Post-Session Comments: All needs met; family at bedside. RN aware no green box present. Home Living/Set-up Lives With: Spouse Home Type: House Home Adaptive Equipment: None Home Layout: Stairs to enter without rails (1.5 level; Bedroom/bathroom on main level) Number of Stairs: 2 Bathroom: Tub/Shower: Tub/Shower combo Bathroom: Toilet: Standard Prior Level of Function Receives Help From: No assist required prior to admission Level of Mobility: Ambulatory- community Mobility [place]: Independent gait without device History of Falls: No ADL Performance: Independent Patient/Family Goals Statement To get better and go home. Objective Pain No comment of pain. Pillow support provided at end of session and RN aware. Delirium Screening RASS: Drowsy Confusion Assessment Method-ICU (CAM-ICU/PCAM-ICU) Feature 1: Acute Onset or Fluctuating Course: Positive Feature 2: Inattention: Positive Feature 3: Altered Level of Consciousness: Positive Feature 4: Disorganized Thinking: Positive Overall CAM-ICU/PCAM-ICU: Positive Cognition Overall Cognitive Status: Impaired Arousal/Alertness: Delayed responses to stimuli Mood/Behavior: Lethargic Orientation Level: Oriented to person Orientation Level Comments: States name and month/day Single Step Commands: With repetition, With increased time, 50% of the time Multi-Step Commands: Unable to follow commands Method of Communication: Mouthing, Verbal, Nodding Right Upper Extremity Examination RUE ROM Assessment RUE Assessment: Within Functional Limits (AAROM- edema present) Manual Muscle Testing - RUE: (Difficult to assess due to cognitive deficits. Accounts Receivable Accountant strength 3/5, otherwise 2-/5 based on observation.) Sensation Light Touch: Right Upper Extremity: Intact Left Upper Extremity Examination LUE ROM Assessment LUE Assessment: Within Functional Limits (AAROM) Manual Muscle Testing - LUE: (Difficult to assess due to cognitive deficits. Accounts Receivable Accountant strength 3/5, otherwise 2-/5 based on observation.) Sensation Light Touch: Left Upper Extremity: Intact Right Lower Extremity Examination RLE ROM Assessment RLE Assessment: Within Functional Limits Manual Muscle Testing - RLE: (Grossly 3+/5 observed) Sensation Light Touch: Right Lower Extremity: Intact (per patient report) Left Lower Extremity Examination LLE ROM Assessment LLE Assessment: Within Functional Limits Manual Muscle Testing: (Grossly 3+/5 observed) Sensation Light Touch: Left Lower Extremity: Intact (per patient report) Bed Mobility Bed Mobility Exam: Scooting/Bridging Level of [place]: Moderate assist (50% patient's effort) (progressing to CGA; to scoot anterior/posteriorly) Physical/Nonphysical Assist: Verbal Cues, Moderate cues, Nonverbal cues (demo/gestures), Additionalassist utilized for safety Bed Mobility Exam: Supine to Sit Level of [place]: Moderate assist (50% patient's effort) Physical/Nonphysical Assist: Verbal Cues, Maximal cues, HOB elevated, Nonverbal cues (demo/gestures), Additional assist utilized for safety Transfers Transfer Exam: Sit to stand Level of [place]: Moderate assist (50% patient's effort) (x 2 reps from bed and recliner chair) Physical/Nonphysical Assist: Maximal cues, Verbal Cues, Nonverbal cues (demo/gestures), 1 person + 1 person to manage equipment, Additional assist utilized for safety Assistive Device: Walker, rolling Transfer Exam: Stand to Sit Level of [place]: Moderate assist (50% patient's effort) Physical/Nonphysical Assist: Verbal Cues, Nonverbal cues (demo/gestures), 1 person + 1 person to manage equipment, Maximal cues, Additional assist utilized for safety Assistive Device: Walker, rolling Transfer Exam: Bed to Chair/Chair to Bed Level of [place]: Moderate assist (50% patient's effort) Physical/Nonphysical Assist: Verbal Cues, Maximal cues, 1 person + 1 person to manage equipment, Nonverbal cues (demo/gestures), Additional assist utilized for safety Type of Transfer: Sidesteps Assistive Device: Walker, rolling Balance Postural Appearance Posture: Within Functional Limits Static Sitting Balance Static Sitting-Balance Support: Feet supported Static Sitting-Level of Assistance: Moderate assistance (at EOB progressing to CGA) Dynamic Sitting Balance Dynamic Sitting-Balance Support: Feet supported Dynamic Sitting-Balance: Anterior/Posterior weight shifts, Lateral weight shifts Level of Assistance: Moderate assistance (progressing to CGA) Static Standing Balance Static Standing-Balance Support: Right upper extremity support, Left upper extremity support Static Standing-Level of Assistance: Minimum assistance Dynamic Standing Balance Dynamic Standing-Balance Support: Left upper extremity support, Right upper extremity support Dynamic Standing-Balance: Lateral weight shifts, Anterior/Posterior weight shifts Dynamic Standing Level of Assistance: Moderate assistance Self-Care Interventions Self Care/Home Management (ADLs) Time Entry: 28 Self-Care Interventions: Increased time required due to delayed processing and mildly impaired command follow. Pt. participated in functional endurance tasks in preparation for high level ADL routines. Pt. required increased time at edge of bed to adjust to postural changes, pt denied dizziness andBP WNL. Pt completed sit to stand from EOB with mod A required with cues to sequence. Pt noted to have BM incontinence during transfer, requiring max A for hygiene tasks due to impaired balance and sequencing with functional tasks. Pt required max cues for hand placement and verbal/tactile cues to initiate and sequence lateral weight shift needed for steps to recliner, in prep for BSC transfers. Pt required rest break before completing second stand for further posterior hygiene tasks and linen change. Pt too fatigued to attempt walk this date. Towel support placed under scrotum to encourage edema reduction. Cues also provided throughout session to promote upright posture, activity pacing, and pursed lip breathing with improved carryover noted with session progression. Pt required max A to brush hair and complete oral hygiene due to impaired activity tolerance and delayed processing. Pt/family educated on role of OT, discharge recommendations, and expectations for mobility while inpatient. Pt verbalized understanding but would benefit from continued education to improve carryover. Lower Extremity Dressing Sock Level of Assistance: Maximum assistance LE Dressing Interventions: Cues required to initiate lifting b/l LE's off bed to don socks. Standardized Assessments [facility] 6-Click Daily Activities Help from Other: Don/Doff Regular Lower Body Clothings: Total Help From Other: Bathing: Total Help From Other: Toileting: Total Help From Other: Don/Doff Upper Body Clothings: A lot Help From Other: Grooming: A lot Help From Other: Eating Meals: Total (NPO, DHT) [facility] 6 Click - Daily Activities Score: 8 Assessment In addition to OT evaluation, pt participated in OT session with a focus on ADL retraining and functional endurance. Pt tolerated session with fair energy for task. Pt is most limited by endurance and cognition. Pt would benefit from continued skilled OT services to address AE/DME training, activity tolerance, and overall muscle power needed for increased independence with ADLs and functional mobility. OT Findings: Impaired ADL performance, Impaired IADL performance, Decreased endurance/ventilation/gas exchange, Impaired functional mobility, Impaired balance Evaluation/Treatment Tolerance: Patient limited by fatigue Rehab Potential: Good, to achieve stated therapy goals Eval Complexity Occupational Profile: Expanded review of medical/therapy records and additional review of physical,cognitive, or psychosocial history Performance Deficits: Activities of daily living (ADLs), Instrumental activities of daily living (IADLs), Body functions, Body structures, Motor skills, Process skills, Personal, Physical Clinical Decision Making: Moderate Overall Eval complexity: Moderate OT Recommendations Discharge Destination: Acute rehab Discharge Equipment: Defer to facility Plan Planned OT Interventions ADL retraining, IADL retraining, Balance training, Bed mobility Training, Transfer training, Functional mobility, Caregiver education, Cognitive retraining, Strengthening, Motor coordination training, Neuromuscular re- education, Fine motor coordination training OT Frequency 2 - 5 times per week OT Duration 2 weeks Goals OT GOAL DETAILS Time Frame OT Goal 1: Pt will complete total body dressing skills with CGA and appropriate adaptive device. 2 weeks OT Goal 2: Pt will complete toileting skills with CGA and appropriate adaptive device. 2 weeks OT Goal 3: Pt will complete functional transfers with CGA and appropriate adaptive device to increase independence with toilet transfers. 2 weeks OT Goal 4: Pt will complete UE HEP 3x/wk with supervision to increase muscle power needed for ADL tasks. 2 weeks Written by Fartun See on 06/17/25 at 4:03 PM. * Care Plan - Christine Quiroz - 06/17/2025 1:38 PM EDT Problem: Mechanical Ventilation Invasive Goal: Effective Communication Outcome: Met Goal: Optimal Device Function 06/17/2025 [id number] by Christine Quiroz Outcome: Met 06/17/2025 [id number] by Christine Quiroz Outcome: Ongoing, Progressing Goal: Mechanical Ventilation Liberation Outcome: Met Goal: Optimal Nutrition Delivery Outcome: Met Goal: Absence of Device-Related Skin and Tissue Injury Outcome: Met Goal: Absence of Ventilator-Induced Lung Injury Outcome: Met * Care Plan - Christine Quiroz - 06/17/2025 12:32 PM EDT Problem: Mechanical Ventilation Invasive Goal: Optimal Device Function Outcome: Ongoing, Progressing * Progress Notes - Ariadna Ken MD - 06/17/2025 11:35 AM EDT [facility] Inpatient Progress Note Primary Attending: Dyllan Paul MD Procedure(s): RALP with bilateral pelvic lymph node dissection requiring ex-lap 06/12/25 SUBJECTIVE: The patient remains intubated in the ICU this morning. He is currently on PS/CPAP and Nurse informed us that he desaturated yesterday during SBT trial. Patient responds to tactile stimulus. His DANILO drain has sanguinous output. Scrotal swelling increased since yesterday. PHYSICAL EXAM: Temp: [36.4 ??C (97.6 ??F)-36.7 ??C (98 ??F)] 36.6 ??C (97.8 ??F) Heart Rate: [77-99] 83 Resp: [12-20] 14 SpO2: [88 %-100 %] 100 % I O Shift I O 24Hrs LDAs I/O this shift: In: 400 [IV Piggyback:400] Out: 225 [Urine:225] I/O last 3 completed shifts: In: 2830.9 (26 mL/kg) [I.V.:895.9 (8.2 mL/kg); NG/GT:1935] Out: 3265 (30 mL/kg) [Urine:2300 (0.6 mL/kg/hr); Drains:965] Weight: 108.9 kg Closed/Suction Drain 1 RUQ Bulb 10 Fr. (Active) Placement Date/Time: 06/12/251854 Inserted by: Dyllan Paul MD Hand Hygiene Completed: Yes Tube Number: 1 Location: RUQ Drain Tube Type: Bulb Size (Fr.): 10 Fr. Drain [place] Size (mL): 100 mL Urethral Catheter Double-lumen;Non-latex 20 Fr. (Active) Placement Date/Time: 06/12/251831 Inserted by: ST Denis, under Dr. Paul's supervision Hand Hygiene Completed: Yes Catheter Type: Double-lumen;Non-latex Tube Size (Fr.): 20 Fr. Difficult Placement: No Number Of Attempts: 1 Urine Re... GEN: Hemodynamically stable HEENT: NCAT RESP: Equal bilateral chest rise, intubated (PS/CPAP) CV: Regular rate, appears well perfused ABD: incisions clean dry and intact with abdominal binder in place, soft abdomen. DANILO draining less chylous fluid. : catheter in place draining gill clots. Increased scrotal swelling EXT: SCDs in place, peripheral edema NEURO: sedated PSYCH: unable to assess LABS: Results from last 7 days Lab Units 06/17/25 0024 WBC 10*3/uL 13.51* HEMOGLOBIN g/dL 12.1* HEMATOCRIT % 34.3* PLATELETS 10*3/uL 99* Results from last 7 days Lab Units 06/17/25 0024 SODIUM mmol/L 146* POTASSIUM mmol/L 4.1 CHLORIDE mmol/L 112* CO2 mmol/L 24 BUN mg/dL 51* CREATININE mg/dL 1.37* EGFR mL/min/1.73m*2 55.5 GLUCOSE mg/dL 163* CALCIUM mg/dL 8.7* Results from last 7 days Lab Units 06/14/25 0821 COLOR UA Red SPEC GRAV U 1.019 PH UA <=5.0* PROTEIN UR mg/dL 100* GLUCOSE UA mg/dL Negative KETONES UA mg/dL Negative LEUKOCYTES UA Moderate* NITRITE UA Positive* RBC, URINE /HPF >50* WBC, URINE /HPF Unable to estimate due to obscuring RBC's (UNERBC) SQUAMOUS /HPF Unable to estimate due to obscuring RBC's (UNERBC) BACTERIA UR HPF Unable to estimate due to obscuring RBC's (UNERBC) IMAGING: All personally reviewed === 06/12/25 === XR CHEST 1 VIEW - Narrative - CLINICAL INDICATION: lung field eval TECHNIQUE: XR CHEST 1 VIEW COMPARISON: 06/16/2025 FINDINGS: Stable support devices. Prominence of the right hilum, likely positional. Low lung volumes. No interval change in bilateral diffuse interstitial thickening. No pleural effusion or pneumothorax. Normal size cardiac silhouette. Nonaggressive appearing sclerotic lesion in the proximal left humerus. - Impression - No significant interval change CRITICAL RESULT: No. COMMUNICATION: Per this written report. By electronically signing this report, I, the attending physician, attest that I have personally reviewed the images/data for the above examination(s) and agree with the final edited report. Drafted by Claeb De La Cruz MD on 06/17/2025 8:04 AM Final report signed by Melissa Fleming MD on 06/17/2025 9:45 AM HOSPITAL PROBLEM LIST: Principal Problem: Prostate CA (CMS/HCC) Active Problems: Severe obesity (BMI 35.0-39.9) with comorbidity (CMS/HCC) On mechanically assisted ventilation (CMS/HCC) Anemia Hyperlipidemia Leukocytosis Cirrhosis of liver (CMS/HCC) Hyperbilirubinemia Esophageal varices Renal calculi Hypertension Alcohol use disorder SCC (squamous cell carcinoma), leg, left Electrolyte abnormality Hypotension Hypocalcemia Metabolic encephalopathy ASSESSMENT: Eber Lowe is a 70 y.o. male with hx of cirrhosis (MELD-Na 16), HLD, HTN, kidney stones, esophageal varices, AUD, and prostate cancer who is s/p RALP with bilateral pelvic lymph node dissection complicated by transection of a patent umbilical vein requiring transfusions and ex lap for repair on 06/12/25. Patient is currently on PS/CPAP and no sedation. DANILO draining less chylous fluid today. Patient desaturated this morning during Trial of wean. CXR shows stable bilateral pleural effusions and basal atelectasis vs. Yesterday. Yesterday, lactulose was administered due to increased ammonia levels. Ptient had 6 BM that nurse described as thicker than gravy. Patient has increased scrotal swelling today. Stat lock was replaced. PLAN: -wean off vent as able per ICU team -continue DANILO drain and martinez catheter -NPO + mIVF -continue A line to closely monitor hemodynamics, appreciate CCM with resuscitation postoperatively -daily AM labs -agree with abdominal binder -MMPC - C/w tube feeds at 40 - F/u respiratory culture - c/w antibiotics to tailor to infection -c/w scrotal elevation -urology will closely follow Ariadna Vegas MD Cosigned by Dyllan Paul MD at 06/17/2025 5:59 PM EDT Associated attestation - Dyllan Paul MD - 06/17/2025 5:59 PM EDT I saw and evaluated the patient. I discussed the case with the resident/fellow and agree with the findings and plan as documented. * Consults - Corry Baum RD - 06/17/2025 10:57 AM EDT Adult Nutrition Evaluation Note Eber Lowe 70 y.o. male CSN: [id number] Room/Bed 239/239A Nutrition evaluation type: follow-up Reason for evaluation: Hospital course: 70 y.o male admitted with prostate cancer. OR 06/12 for robot assisted laparotomy prostatectomy with bilateral pelvic lymph node dissection requiring ex-lap. Past medical/ surgical history: Past Medical History[1] Surgical History[2] Social history: Additional comments: Visited room. TF running at 40 ml/hr. Tolerating per RN. Vitals and Basic Assessment: BP: (!) 157/79 Temp: 36.6 ??C (97.8 ??F) Invasive Ventilator Initiated (ETT/Trach Only): Yes Oxygen Therapy: Supplemental oxygen O2 Delivery Method: Mechanical ventilator [place] Coma Scale Score: 11 Héctor/Cubbin Pressure Risk Score: 31 Most Recent BM Date: 06/17/25 GI Symptoms: None Edema: Generalized, Perineal, Right upper extremity, Left upper extremity, Right lower extremity, Left lower extremity Allergies: NKFA Medications: Current Scheduled Medications[3] Current Continuous Medications[4] Current PRN Medications[5] Meds were reviewed: Yes Labs: BMP Na 146 (H) Cl 112 (H) BUN 51 (H) Glu 163 (H) K 4.1 Co2 24 Cr 1.37 (H) Ca 8.7 (L) iCa 4.9 Mg 2.3, Phos 2.7 Lactate 1.4 Lab Results Component Value Date TRIG 103 06/16/2025 Lab Results Component Value Date HGBA1C 5.4 06/16/2025 Anthropometrics: Height: 175.3 cm (5' 9 ) Weight: 108 kg (238 lb 8.6 oz) BMI (Calculated): 35.21 Weight Evaluation: Obese-Class 2 (BMI 35-39.9) [place] Body Weight (kg): 72.7 Percent [place] Body Weight: 150 Adjusted Body Weight (kg): 82 Estimated Needs: Kcal/ K - 20 Kcal Provided: 1635 - 2180 Kcal Needs Based On: Current weight Gm Protein/ Kg : 1.5 - 2.0 Protein Provided: 109 - 145 Protein Needs Based On: [place] weight Metabolic Cart Study Results: Current Nutrition Intake: Diet Supplements: None Diet Order: NPO Enteral Nutrition Formula/Solution: Novasource Renal Tube Feeding Modular: Protein powder Tube Feeding Route: [place] Current Tube Feed Rate (Continuous or Intermittent): 40 Goal Tube Feed Rate (Continuous or Intermittent): 40 Kcal Provided by EN: [id number] Protein Provided by EN: 80 Water Provided by EN: 634 Grams of Carbs Provided by EN: 161 Diet Experience and Nutrition History: Diet Education Provided: Will monitor Pertinent home medications: Multivitamin, Metamucil, Vitamin E Nutrition Focused Physical Exam: Physical exam performed on (date): 06/13, 06/17 Tem[place] (muscles): None Clavicle (muscle): None Orbital (fat): Mild Triceps (fat): None Assessment of Malnutrition: Malnutrition Identified: No Nutrition Problem: Inadequate oral intake related to mechanical vent as evidenced by NPO diet. Status of Nutrition Diagnosis: Ongoing Nutrition Interventions and Recommendations: - TF Recs: - Novasource Renal @ 40 ml/hr (880 ml/day) provides 1760 kcal, 80g protein, 161g CHO, 0g fiber, 88gfat, 634 ml water, and 88% RDIs vit/min - Add Abiel BID to provide 160 kcal, 14 gm L-Arginine, 14 gm L-Glutamine, vitamins C, E, B12, and calcium and zinc - Add 2 packets of protein BID - Provides: 2040 kcals and 104 gms protein - Advance by 10 ml q 6 hours - Free water per team - Document infusions Nutrition Monitoring and Goals: - Tolerate >80% of goal (met) - Monitor weight, labs, and elytes Acuity Level: 4 Corry Baum, RD, LD [1] Past Medical History: Diagnosis Date Cancer (CMS/HCC) january 26, 2025 Cirrhosis (CMS/HCC) 2021 History of methicillin resistant Staphylococcus aureus 2011 Hyperlipidemia Hypertension Kidney stone various Substance abuse alcohol [2] Past Surgical History: Procedure Laterality Date CHOLECYSTECTOMY 2009 lap KNEE ARTHROSCOPY W/ MENISCAL REPAIR OTHER SURGICAL HISTORY Lipoma resection UMBILICAL HERNIA REPAIR [3] bisacodyl, 10 mg, Rectal, Daily folic acid, 1 mg, Nasogastric, Daily furosemide, 20 mg, Per G Tube, Daily heparin (porcine), 5,000 Units, Subcutaneous, q8h INES insulin regular, 0-5 Units, Subcutaneous, q6h INES lactulose, 30 g, Nasogastric, TID lidocaine, 1 patch, Apply externally, q24h linezolid, 600 mg, Intravenous, q12h methocarbamol, 750 mg, Nasogastric, 4x daily pantoprazole, 40 mg, Intravenous, Daily piperacillin-tazobactam, 4.5 g, Intravenous, q8h Protein, 1 packet, Nasogastric, TID senna-docusate, 1 tablet, Nasogastric, Nightly sodium chloride, 10 mL, Intravenous, q12h [START ON 06/20/2025] thiamine, 100 mg, Nasogastric, Daily thiamine, 200 mg, Nasogastric, q8h [4] [5] PRN medications: glucose OR dextrose 10 % OR dextrose 10 % OR glucagon (human recombinant), melatonin, ondansetron, [COMPLETED] Insert peripheral IV AND Saline lock IV AND sodium chloride AND sodium chloride * Assessment & Plan Note - Lillian Carrera PA - 06/17/2025 10:54 AM EDT Associated Problem(s): Leukocytosis WBC Count (10*3/uL) Date/Time Value 06/12/20252126 11.67 (H) Tmax 100*F Multifactorial etiology in setting of recent surgery Pancultures MURF and BC NGTD Procal 1.99 Continue empiric Vanc/Zosyn will plan to treat for a total of 5 days. Continue to follow * Assessment & Plan Note - Lillian Carrera PA - 06/17/2025 10:54 AM EDT Associated Problem(s): Metabolic encephalopathy (Resolved 06/18/2025) Patient unable to follow commands this AM. Has remained off sedation for over 24 hours. TSH and Free T4 pending. Ammonia elevated 137. Lactulose started, mentation reportedly improved. Continue Lactulose. Head CT pending. * Care Plan - Lesia Booth RN - 06/17/2025 9:40 AM EDT Problem: Adult Inpatient Plan of Care Goal: Plan of Care Review Outcome: Ongoing, Progressing Flowsheets (Taken 06/17/2025 08) Progress: improving Plan of Care Reviewed With: spouse Goal: Patient-Specific Goal (Individualized) Outcome: Ongoing, Progressing Goal: Absence of Hospital-Acquired Illness or Injury Outcome: Ongoing, Progressing Intervention: Prevent Skin Injury Flowsheets (Taken 06/17/2025 08) Skin Protection: incontinence pads utilized silicone foam dressing in place Problem: Infection Goal: Absence of Infection Signs and Symptoms Outcome: Ongoing, Progressing Intervention: Prevent or Manage Infection Flowsheets (Taken 06/17/2025 08) Infection Management: aseptic technique maintained Fever Reduction/Comfort Measures: lightweight bedding lightweight clothing Problem: Mechanical Ventilation Invasive Goal: Mechanical Ventilation Liberation Outcome: Ongoing, Progressing Intervention: Promote Extubation and Mechanical Ventilation Liberation Flowsheets (Taken 06/17/2025 0937) Environmental Support: calm environment promoted caregiver consistency promoted distractions minimized Sleep/Rest Enhancement: regular sleep/rest pattern promoted Medication Review/Management: medications reviewed infusion held Goal: Optimal Nutrition Delivery Outcome: Ongoing, Progressing Intervention: Optimize Nutrition Delivery Flowsheets (Taken 06/17/2025 08) Nutrition Support Management: weight trending reviewed Note: Tube feeds at goal rate Problem: Restraint, Nonviolent Goal: Absence of Harm or Injury Outcome: Ongoing, Progressing Intervention: Implement Least Restrictive Safety Strategies Flowsheets (Taken 06/17/2025 0800) Skidway Worker Protection: IV pole/bag removed from visual field tubing secured Diversional Activities: television Intervention: Protect Dignity, Rights and Personal Wellbeing Flowsheets (Taken 06/17/2025 0800) Trust Relationship/Rapport: care explained Intervention: Protect Skin and Joint Integrity Flowsheets (Taken 06/17/2025 0800) Skin Protection: incontinence pads utilized silicone foam dressing in place * Assessment & Plan Note - Lillian Carrera PA - 06/17/2025 8:57 AM EDT Associated Problem(s): Prostate CA (CMS/HCC) (Resolved 07/31/2025) 06/12: robot-assisted radical prostatectomy, complicated by severed umbilical vein, 1.3L blood loss Management per primary * Assessment & Plan Note - Lillian Carrera PA - 06/17/2025 8:57 AM EDT Associated Problem(s): Severe obesity (BMI 35.0-39.9) with comorbidity (CMS/HCC) Complicates all aspects of care. * Assessment & Plan Note - Lillian Carrera PA - 06/17/2025 8:57 AM EDT Associated Problem(s): On mechanically assisted ventilation (CMS/HCC) (Resolved 06/18/2025) Intubated for procedure Increased FiO2 overnight 06/13, likely r/t increased PEEP and Shunt PEEP decreased, maintain at 5 Wean FiO2 for SpO2 >92% Continue aggressive pulm secretion mobilization Continue chlorhexidine per vent bundle PST as tolerated PRN CXR, blood gasses and nebs 06/16: Tolerating PS, but not following commands. Continue to hold any sedating medications. 06/17: Tolerated PS overnight. This AM vent alarming. Patient still unable to follow commands. * Assessment & Plan Note - Lillian Carrera PA - 06/17/2025 8:57 AM EDT Associated Problem(s): Anemia Lab Results Component Value Date HGB 12.5 (L) 06/12/2025 , Lab Results Component Value Date HCT 36.2 (L) 06/12/2025 Stable Will continue to monitor Transfuse as appropriate for Hgb>8 Iron, Folate, B12 as appropriate * Assessment & Plan Note - Lillian Carrera PA - 06/17/2025 8:57 AM EDT Associated Problem(s): Hyperlipidemia Hold statin until appropriate to restart * Assessment & Plan Note - Lillian Carrera PA - 06/17/2025 8:57 AM EDT Associated Problem(s): Cirrhosis of liver (CMS/HCC) In setting of AUD MELD score MELD 3.0: 16 at 03/28/2025 6:34 AM MELD-Na: 16 at 03/28/2025 6:34 AM Monitor liver function with daily labs * Assessment & Plan Note - Lillian Carrera PA - 06/17/2025 8:57 AM EDT Associated Problem(s): Hyperbilirubinemia T bili 3.7 In setting of AUD related cirrhosis Monitor with daily labs * Assessment & Plan Note - Lillian Carrera PA - 06/17/2025 8:57 AM EDT Associated Problem(s): Esophageal varices EGD 08/13: gr1 ev; moderate PHG no focal liver lesion Takes Coreg daily Restart home medication when appropriate * Assessment & Plan Note - Lillian Carrera PA - 06/17/2025 8:57 AM EDT Associated Problem(s): Renal calculi Resume home medications when appropriate Monitor kidney function with daily labs * Assessment & Plan Note - Lillian Carrera PA - 06/17/2025 8:57 AM EDT Associated Problem(s): Hypertension Resume home medications as appropriate * Assessment & Plan Note - Lillian Carrera PA - 06/17/2025 8:57 AM EDT Associated Problem(s): Alcohol use disorder 03/28: Reports he is abstinent for 3-4months, then resumes occasional alcohol around 2-3 glasses of wine a few times a week to 2 shots of bourbon a few times a week, last drink about a week ago. Monitor liver function with daily labs - Continue CIWA monitoring - Continue Folate -PETH: 260 was 316 on 03/28/2025. - Start PO Thiamine * Assessment & Plan Note - Lillian Carrera PA - 06/17/2025 8:57 AM EDT Associated Problem(s): SCC (squamous cell carcinoma), leg, left Skin biopsy in March 2025 confirmed SCC of left leg Continue to monitor * Assessment & Plan Note - Lillian Carrera PA - 06/17/2025 8:57 AM EDT Associated Problem(s): Electrolyte abnormality Replace per ICU sliding scale protocol. * Assessment & Plan Note - Lillian Carrera PA - 06/17/2025 8:57 AM EDT Associated Problem(s): Hypotension -Monitor arterial pressure -Norepi for MAP>65 -Transfuse as needed. * Assessment & Plan Note - Lillian Carrera PA - 06/17/2025 8:57 AM EDT Associated Problem(s): Hypocalcemia (Resolved 06/18/2025) -Monitor daily labs, -ICU electrolyte replacement protocol * Progress Notes - Lillian Carrera PA - 06/17/2025 8:36 AM EDTAssociated Order(s): Critical Care Post-Procedure Diagnose(s): Hyperbilirubinemia; Prostate CA; Electrolyte abnormality; SCC (squamouscell carcinoma), leg, left; Severe obesity (BMI 35.0- 39.9) with comorbidity (CMS/HCC); On mechanically assisted ventilation (CMS/HCC); Alcohol use disorder; Leukocytosis, unspecified type 06/17/25 Eber Lowe Past 24 hours: PM: Ammonia 137->83 lactulose. More alert AM: Tolerating PS this AM. Waxing and weaning of mental status again this AM. Repeat ammonia level ordered, TSH, and free T4 pending. 20mg PO Lasix. Added Thiamine. 7+ BM overnight with lactulose. Edited by: Lillian Carrera PA at 06/17/2025 0836 Lines/Drains/Tubes: Patient Lines/Drains/Airways Status Active Active LDAs Name Placement date Placement time Site Days Peripheral IV 06/12/25 Left Arm 06/12/25 1518 Arm 4 Peripheral IV 06/13/25 Left;Upper Arm 06/13/25 0414 Arm 4 Peripheral IV 06/13/25 Anterior;Distal;Right;Upper Arm 06/13/25 1045 Arm 3 Closed/Suction Drain 1 RUQ Bulb 10 Fr. 06/12/25 1855 RUQ 4 Urethral Catheter Double-lumen;Non-latex 20 Fr. 06/12/25 1832 -- 4 ETT ETT - single 8 mm 06/12/25 1450 Oral 4 Arterial Line 06/12/25 Right Radial 06/12/25 2125 Radial 4 Feeding Tube Gastric 10 Fr. Left nare 06/13/25 1438 Left nare 3 GCS: [place] Coma Scale Score: 11 Review of Systems Reason unable to perform ROS: Intubated. 14 point ROS reviewed and otherwise negative or unobtainable except as noted above or in HPI. Vital signs: Vitals: 06/17/25 0400 BP: Pulse: 87 Resp: 14 Temp: 36.7 ??C (98 ??F) SpO2: 100% Intake/Output Summary (Last 24 hours) at 06/17/2025 0836 Last data filed at 06/17/2025 0600 Gross per 24 hour Intake 1235 ml Output 2135 ml Net -900 ml Physical Exam Vitals and nursing note reviewed. Constitutional: Appearance: He is ill-appearing. HENT: Head: Normocephalic. Nose: Comments: DHT present Mouth/Throat: Mouth: Mucous membranes are dry. Eyes: Pupils: Pupils are equal, round, and reactive to light. Cardiovascular: Rate and Rhythm: Normal rate and regular rhythm. Pulses: Normal pulses. Pulmonary: Effort: Pulmonary effort is normal. No respiratory distress. Breath sounds: No wheezing. Abdominal: General: There is no distension. Palpations: Abdomen is soft. Tenderness: There is no abdominal tenderness. Comments: Large abd, DANILO drain present Genitourinary: Comments: Scrotal edema Musculoskeletal: Cervical back: Neck supple. Right lower leg: Edema present. Left lower leg: Edema present. Skin: General: Skin is warm. Capillary Refill: Capillary refill takes less than 2 seconds. Neurological: GCS: GCS eye subscore is 4. GCS verbal subscore is 1. GCS motor subscore is 5. Comments: Unable to follow commands. Does not localize to pain in BUE, but is freely moving BUE. Last BM: Labs in last 18 hours: CBC WBC 13.51 (H) Hb 12.1 (L) Plt 99 (L) Hct 34.3 (L) ANC ?? INR ??, PTT ??, Anti-Xa ?? BMP Na 146 (H) Cl 112 (H) BUN 51 (H) Glu 163 (H) K 4.1 Co2 24 Cr 1.37 (H) Ca 8.7 (L) iCa 4.9 Mg 2.3, Phos 2.7 Lactate 1.7 (H) LFT AST 48 AlkPhos 159 (H) T Prot 4.7 (L) ALK 24 Bili 2.8 (H) Alb ?? D.Bili ?? Imaging if available: === 06/12/25 === XR CHEST 1 VIEW - Narrative - CLINICAL INDICATION: lung field eval TECHNIQUE: XR CHEST 1 VIEW COMPARISON: 06/15/2025 and 06/14/2025 FINDINGS: Stable support devices. Low lung volumes. Mildly increased hazy opacities in the left mid and lowerlung. Similar small bilateral pleural effusions. No pneumothorax. Stable cardiac silhouette. Nonaggressive appearing sclerosis in the proximal left humeral diaphysis. - Impression - Mildly increased left basilar atelectasis and/or airspace disease. CRITICAL RESULT: No. COMMUNICATION: Per this written report. By electronically signing this report, I, the attending physician, attest that I have personally reviewed the images/data for the above examination(s) and agree with the final edited report. Drafted by Caleb De La Cruz MD on 06/16/2025 8:27 AM Final report signed by Dyllan Swain MD on 06/16/2025 8:36 AM Reviewed and agree with above. Assessment and Plan: Assessment & Plan Prostate CA (CMS/HCC) Present on Admission: Yes 06/12: robot-assisted radical prostatectomy, complicated by severed umbilical vein, 1.3L blood loss Management per primary Severe obesity (BMI 35.0-39.9) with comorbidity (CMS/HCC) Present on Admission: Unknown Complicates all aspects of care. On mechanically assisted ventilation (CMS/HCC) Present on Admission: Not Applicable Intubated for procedure Increased FiO2 overnight 06/13, likely r/t increased PEEP and Shunt PEEP decreased, maintain at 5 Wean FiO2 for SpO2 >92% Continue aggressive pulm secretion mobilization Continue chlorhexidine per vent bundle PST as tolerated PRN CXR, blood gasses and nebs 06/16: Tolerating PS, but not following commands. Continue to hold any sedating medications. 06/17: Tolerated PS overnight. This AM vent alarming. Patient still unable to follow commands. Anemia Present on Admission: No Lab Results Component Value Date HGB 12.5 (L) 06/12/2025 , Lab Results Component Value Date HCT 36.2 (L) 06/12/2025 Stable Will continue to monitor Transfuse as appropriate for Hgb>8 Iron, Folate, B12 as appropriate Hyperlipidemia Present on Admission: Yes Hold statin until appropriate to restart Leukocytosis Present on Admission: No WBC Count (10*3/uL) Date/Time Value 06/12/2025 2127 11.67 (H) Tmax 100*F Multifactorial etiology in setting of recent surgery Pancultures MURF and BC NGTD Procal 1.99 Continue empiric Vanc/Zosyn will plan to treat for a total of 5 days. Continue to follow Cirrhosis of liver (CMS/HCC) Present on Admission: Yes In setting of AUD MELD score MELD 3.0: 16 at 03/28/2025 6:34 AM MELD-Na: 16 at 03/28/2025 6:34 AM Monitor liver function with daily labs Hyperbilirubinemia Present on Admission: Yes T bili 3.7 In setting of AUD related cirrhosis Monitor with daily labs Esophageal varices Present on Admission: Yes EGD 08/13: gr1 ev; moderate PHG no focal liver lesion Takes Coreg daily Restart home medication when appropriate Renal calculi Present on Admission: Yes Resume home medications when appropriate Monitor kidney function with daily labs Hypertension Present on Admission: Yes Resume home medications as appropriate Alcohol use disorder Present on Admission: Yes 03/28: Reports he is abstinent for 3-4months, then resumes occasional alcohol around 2-3 glasses of wine a few times a week to 2 shots of bourbon a few times a week, last drink about a week ago. Monitor liver function with daily labs - Continue CIWA monitoring - Continue Folate -PETH: 260 was 316 on 03/28/2025. - Start PO Thiamine SCC (squamous cell carcinoma), leg, left Present on Admission: Yes Skin biopsy in March 2025 confirmed SCC of left leg Continue to monitor Electrolyte abnormality Present on Admission: No Replace per ICU sliding scale protocol. Hypotension Present on Admission: Unknown -Monitor arterial pressure -Norepi for MAP>65 -Transfuse as needed. Hypocalcemia Present on Admission: Unknown -Monitor daily labs, -ICU electrolyte replacement protocol Metabolic encephalopathy Present on Admission: Unknown Patient unable to follow commands this AM. Has remained off sedation for over 24 hours. TSH and Free T4 pending. Ammonia elevated 137. Lactulose started, mentation reportedly improved. Continue Lactulose. Head CT pending. Critical Care Performed by: Lillian Carrera PA Authorized by: Lillian Carrera PA Critical care provider statement: Critical care time (minutes): 55 Critical care was time spent personally by me on the following activities: Development of treatmentplan with patient or surrogate, discussions with primary provider, evaluation of patient's responseto treatment, examination of patient, review of old charts, ventilator management, ordering and review of radiographic studies, ordering and review of laboratory studies, ordering and performing treatments and interventions and obtaining history from patient or surrogate Comments: The patient is critically ill with: Prostate cancer, On mechanical ventilation, hypocalcemia, Electrolyte abnormalities, renal calculi, Hypertension, and liver cirrhosis, metabolic encephalopathy. They require complex decision making. The patient was seen on rounds with critical care physician, Dr. Russell Richardson and they are in agreement with the plan of care. Pharmacy, respiratory and nursing services were present on rounds. JENNIFER Lee * Care Plan - Nir Murcia RN - 06/16/2025 9:34 PM EDT Problem: Adult Inpatient Plan of Care Goal: Plan of Care Review Outcome: Ongoing, Progressing Flowsheets Taken 06/16/2025 2133 by Nir Murcia, RN Plan of Care Reviewed With: family Taken 06/15/2025 0308 by Veronica Christiansen Progress: improving Goal: Patient-Specific Goal (Individualized) Outcome: Ongoing, Progressing Flowsheets Taken 06/16/2025 1600 by Agatha Dasilva RN Patient/Family-Specific Goals (Include Timeframe): pt will remain injury free throughout shift Taken 06/15/2025 0800 by Lesia Booth RN Individualized Care Needs: Oxygenation Anxieties, Fears or Concerns: NARINDER Goal: Absence of Hospital-Acquired Illness or Injury Outcome: Ongoing, Progressing Goal: Optimal Comfort and Wellbeing Outcome: Ongoing, Progressing Goal: Readiness for Transition of Care Outcome: Ongoing, Progressing Problem: Infection Goal: Absence of Infection Signs and Symptoms Outcome: Ongoing, Progressing Problem: Mechanical Ventilation Invasive Goal: Effective Communication Outcome: Ongoing, Progressing Goal: Optimal Device Function Outcome: Ongoing, Progressing Goal: Mechanical Ventilation Liberation Outcome: Ongoing, Progressing Goal: Optimal Nutrition Delivery Outcome: Ongoing, Progressing Goal: Absence of Device-Related Skin and Tissue Injury Outcome: Ongoing, Progressing Goal: Absence of Ventilator-Induced Lung Injury Outcome: Ongoing, Progressing Problem: Skin Injury Risk Increased Goal: Skin Health and Integrity Outcome: Ongoing, Progressing Problem: Fall Injury Risk Goal: Absence of Fall and Fall-Related Injury Outcome: Ongoing, Progressing Problem: Restraint, Nonviolent Goal: Absence of Harm or Injury Outcome: Ongoing, Progressing * Teleconsult - Gunnar Levin MD - 06/16/2025 8:02 PM EDT 06/16/25 Eber Lowe Asked by RN to review and reorder restraints. Chart reviewed and patient visualized. Patient has continued need for restraints. Order renewed. Gunnar Levin MD * Care Plan - Quentin Almonte - 06/16/2025 8:02 PM EDT Problem: Mechanical Ventilation Invasive Goal: Optimal Device Function Outcome: Ongoing, Progressing * Care Plan - Agatha Dasilva RN - 06/16/2025 5:57 PM EDT Problem: Adult Inpatient Plan of Care Goal: Plan of Care Review Outcome: Ongoing, Progressing Flowsheets (Taken 06/15/2025 0308 by Veronica Christiansen) Plan of Care Reviewed With: spouse Goal: Patient-Specific Goal (Individualized) Outcome: Ongoing, Progressing Goal: Absence of Hospital-Acquired Illness or Injury Outcome: Ongoing, Progressing Goal: Optimal Comfort and Wellbeing Outcome: Ongoing, Progressing Intervention: Monitor Pain and Promote Comfort Flowsheets (Taken 06/14/2025 1033 by Belkys Dowell RN) Pain Management Interventions: pillow support provided Goal: Readiness for Transition of Care Outcome: Ongoing, Progressing Problem: Infection Goal: Absence of Infection Signs and Symptoms Outcome: Ongoing, Progressing Intervention: Prevent or Manage Infection Flowsheets Taken 06/16/2025 1756 by Agatha Dasilva RN Infection Management: aseptic technique maintained Taken 06/16/2025 0800 by Agatha Dasilva RN Isolation Precautions: contact droplet Taken 06/12/20252214 by Jimi Flanagan RN Fever Reduction/Comfort Measures: lightweight bedding lightweight clothing fluid intake increased Problem: Mechanical Ventilation Invasive Goal: Effective Communication Outcome: Ongoing, Progressing Goal: Optimal Device Function Outcome: Ongoing, Progressing Goal: Mechanical Ventilation Liberation Outcome: Ongoing, Progressing Intervention: Promote Extubation and Mechanical Ventilation Liberation Flowsheets Taken 06/16/2025 1756 by Agatha Dasilva RN Medication Review/Management: infusion held Taken 06/14/2025 1033 by Belkys Dowell RN Sleep/Rest Enhancement: relaxation techniques promoted Taken 06/12/20252214 by Jimi Flanagan RN Environmental Support: calm environment promoted rooming-in facilitated Goal: Optimal Nutrition Delivery Outcome: Ongoing, Progressing Goal: Absence of Device-Related Skin and Tissue Injury Outcome: Ongoing, Progressing Goal: Absence of Ventilator-Induced Lung Injury Outcome: Ongoing, Progressing Problem: Skin Injury Risk Increased Goal: Skin Health and Integrity Outcome: Ongoing, Progressing Problem: Fall Injury Risk Goal: Absence of Fall and Fall-Related Injury Outcome: Ongoing, Progressing Problem: Restraint, Nonviolent Goal: Absence of Harm or Injury Outcome: Ongoing, Progressing * Care Plan - Christine Quiroz - 06/16/2025 1:12 PM EDT Problem: Mechanical Ventilation Invasive Goal: Optimal Device Function Outcome: Ongoing, Progressing * Assessment & Plan Note - Lillian Carrera PA - 06/16/2025 12:52 PM EDT Associated Problem(s): On mechanically assisted ventilation (CMS/HCC) (Resolved 06/18/2025) Intubated for procedure Increased FiO2 overnight 06/13, likely r/t increased PEEP and Shunt PEEP decreased, maintain at 5 Wean FiO2 for SpO2 >92% Continue aggressive pulm secretion mobilization Continue chlorhexidine per vent bundle PST as tolerated PRN CXR, blood gasses and nebs 06/16: Tolerating PS, but not following commands. Continue to hold any sedating medications. * Assessment & Plan Note - Lillian Carrera PA - 06/16/2025 12:52 PM EDT Associated Problem(s): Alcohol use disorder 03/28: Reports he is abstinent for 3-4months, then resumes occasional alcohol around 2-3 glasses of wine a few times a week to 2 shots of bourbon a few times a week, last drink about a week ago. Monitor liver function with daily labs -Continue CIWA monitoring - Continue Thiamine/Folate -PETH pending * Progress Notes - Sheryl Huerta RN - 06/16/2025 11:40 AM EDT Case Management Adult Initial Progress Note Eber Lowe 70 y.o. male CSN: [id number] Admission: 06/12/2025 10:20 AM Primary Problem: Prostate CA (CMS/HCC) [employer] reviewed chart and spoke with patient's spouse-Javon [phone] to complete this Initial Case Management Assessment. PCP: Murray Prajapati MD Emergency Contact: Extended Emergency Contact Information Primary Emergency Contact: JAVON LOWE Mobile Relation: Spouse It Disaster Recovery Manager needed? No Insurance: Primary Visit Coverage Payer Plan Sponsor Code Group Number Group Name [place] [id number] Primary Visit Coverage Subscriber Subscriber ID Subscriber Name Subscriber SSN Subscriber Address [id number] JAVON LOWE Rosalio [id number] [place] [address] Patient information: Primary Caregiver: Self Support System: Immediate family Daily Living Activities: Functional Status: Independent Living Arrangements: Spouse/Significant other Type of Residence: Private residence, Single Level [address] [place] [address] Current DME: Equipment Currently Used at Home: none Income Information: Income Source: Retired Housing Circumstances-Z Codes: Patient Referred to: Anticipated Discharge Date: 06/20/25 Patient's Discharge Goal: Patient/Family Anticipates Transition to: home Assistance Available at Discharge: spouse Discharge Transport: spouse Follow Up Transport: spouse Home Health / Home Infusion / Outpatient Dialysis Services: None reported. Living Will/Advance Directive/Power of Cable Splicer Assistant /Guardian: None reported. Additional Comments: CM introduced herself and explain its role. CM confirmed pt's home address and contact information.Pt lives with spouse in a 1 1/2 level home, doesn't use any DME equipment or have any HH services. Per pt's spouse, she will provide assistance as needed as well as transportation. In??s KELLY Mistry, airborne operations manager Social Drivers of Health Food Insecurity: No Food Insecurity (06/16/2025) Hunger Vital Sign Worried About Running Out of Food in the Last Year: Never true Ran Out of Food in the Last Year: Never true Alcohol Use: Not on file Housing Stability: Low Risk (06/16/2025) Housing Stability Vital Sign Unable to Pay for Housing in the Last Year: No Number of Times Moved in the Last Year: 0 Homeless in the Last Year: No Tobacco Use: Low Risk (06/12/2025) Patient History Smoking Tobacco Use: Never Smokeless Tobacco Use: Never Passive Exposure: Never Transportation Needs: No Transportation Needs (06/16/2025) PRAPARE - Transportation Lack of Transportation (Medical): No Lack of Transportation (Non-Medical): No Depression: Not at risk (04/29/2025) PHQ-2 PHQ-2 Score: 0 Utilities: Not At Risk (06/16/2025) Utilities Threatened with loss of utilities: No Stress: Not on file Intimate Partner Violence: Not At Risk (06/16/2025) Humiliation, Afraid, Rape, and Kick questionnaire Fear of Current or Ex-Partner: No Emotionally Abused: No Physically Abused: No Sexually Abused: No Physical Activity: Not on file Social Connections: Low Risk (12/08/2023) Received from [employer] ([place], [place], [place], [place]) Family and Community Support Help with Day to Day Activities: Not on file Feeling Lonely or Isolated: Not on file Financial Resource Strain: Not on file * Assessment & Plan Note - Lillian Carrera PA - 06/16/2025 10:57 AM EDT Associated Problem(s): Prostate CA (CMS/HCC) (Resolved 07/31/2025) 06/12: robot-assisted radical prostatectomy, complicated by severed umbilical vein, 1.3L blood loss Management per primary * Assessment & Plan Note - Lillian Carrera PA - 06/16/2025 10:57 AM EDT Associated Problem(s): Severe obesity (BMI 35.0-39.9) with comorbidity (CMS/HCC) Complicates all aspects of care. * Assessment & Plan Note - Lillian Carrera PA - 06/16/2025 10:57 AM EDT Associated Problem(s): Anemia Lab Results Component Value Date HGB 12.5 (L) 06/12/2025 , Lab Results Component Value Date HCT 36.2 (L) 06/12/2025 Stable Will continue to monitor Transfuse as appropriate for Hgb>8 Iron, Folate, B12 as appropriate * Assessment & Plan Note - Lillian Carrera PA - 06/16/2025 10:57 AM EDT Associated Problem(s): Hyperlipidemia Hold statin until appropriate to restart * Assessment & Plan Note - Lillian Carrera PA - 06/16/2025 10:57 AM EDT Associated Problem(s): Leukocytosis WBC Count (10*3/uL) Date/Time Value 06/12/20252126 11.67 (H) Tmax 100*F Multifactorial etiology in setting of recent surgery Pancultures pending; Procal 1.99 Start empiric Vanc/Zosyn Continue to follow * Assessment & Plan Note - Lillian Carrera PA - 06/16/2025 10:57 AM EDT Associated Problem(s): Cirrhosis of liver (CMS/HCC) In setting of AUD MELD score MELD 3.0: 16 at 03/28/2025 6:34 AM MELD-Na: 16 at 03/28/2025 6:34 AM Monitor liver function with daily labs * Assessment & Plan Note - Lillian Carrera PA - 06/16/2025 10:57 AM EDT Associated Problem(s): Hyperbilirubinemia T bili 3.7 In setting of AUD related cirrhosis Monitor with daily labs * Assessment & Plan Note - Lillian Carrera PA - 06/16/2025 10:57 AM EDT Associated Problem(s): Esophageal varices EGD 08/13: gr1 ev; moderate PHG no focal liver lesion Takes Coreg daily Restart home medication when appropriate * Assessment & Plan Note - Lillian Carrera PA - 06/16/2025 10:57 AM EDT Associated Problem(s): Renal calculi Resume home medications when appropriate Monitor kidney function with daily labs * Assessment & Plan Note - Lillian Carrera PA - 06/16/2025 10:57 AM EDT Associated Problem(s): Hypertension Resume home medications as appropriate * Assessment & Plan Note - Lillian Carrera PA - 06/16/2025 10:57 AM EDT Associated Problem(s): SCC (squamous cell carcinoma), leg, left Skin biopsy in March 2025 confirmed SCC of left leg Continue to monitor * Assessment & Plan Note - Lillian Carrera PA - 06/16/2025 10:57 AM EDT Associated Problem(s): Electrolyte abnormality Replace per ICU sliding scale protocol. * Assessment & Plan Note - Lillian Carrera PA - 06/16/2025 10:57 AM EDT Associated Problem(s): Hypotension -Monitor arterial pressure -Norepi for MAP>65 -Transfuse as needed. * Assessment & Plan Note - Lillian Carrera PA - 06/16/2025 10:57 AM EDT Associated Problem(s): Hypocalcemia (Resolved 06/18/2025) -Monitor daily labs, -ICU electrolyte replacement protocol * Progress Notes - Lillian Carrera PA - 06/16/2025 10:30 AM EDTAssociated Order(s): Critical Care Post-Procedure Diagnose(s): Hypocalcemia; Renal calculi; Prostate CA; Electrolyte abnormality; SCC (squamous cell carcinoma), leg, left; Severe obesity (BMI 35.0-39.9) with comorbidity (CMS/[facility]); Other secondary hypertension; On mechanically assisted ventilation ([facility]); Alcohol use disorder; Leukocytosis, unspecified type 06/16/25 Eber Lowe Past 24 hours: PM: adjusted propofol parameters. AM: Off propofol this AM. Tolerating PS this AM 06/24 40%, however extremely lethargic, minimal movement of BUE, continue to monitor neuro status closely, likely sedation related. D/c propofol and other sedating medications. Continue to work towards extubation. 20mg PO Lasix for diuresis. Continue Linezolid and Zosyn. Keep martinez per Urology. Edited by: Lillian Carrera PA at 06/16/2025 1205 Lines/Drains/Tubes: Patient Lines/Drains/Airways Status Active Active LDAs Name Placement date Placement time Site Days Peripheral IV 06/12/25 Left Arm 06/12/25 1518 Arm 3 Peripheral IV 06/13/25 Left;Upper Arm 06/13/25 0414 Arm 3 Peripheral IV 06/13/25 Anterior;Distal;Right;Upper Arm 06/13/25 1045 Arm 3 Closed/Suction Drain 1 RUQ Bulb 10 Fr. 06/12/25 1855 RUQ 3 Urethral Catheter Double-lumen;Non-latex 20 Fr. 06/12/25 1832 -- 3 ETT ETT - single 8 mm 06/12/25 1450 Oral 3 Arterial Line 06/12/25 Right Radial 06/12/25 2125 Radial 3 Feeding Tube Gastric 10 Fr. Left nare 06/13/25 1438 Left nare 2 GCS: Sherri Coma Scale Score: 11 Review of Systems Reason unable to perform ROS: Intubated. 14 point ROS reviewed and otherwise negative or unobtainable except as noted above or in HPI. Vital signs: Vitals: 06/16/25 1000 BP: Pulse: 86 Resp: 13 Temp: SpO2: 99% Intake/Output Summary (Last 24 hours) at 06/16/2025 1210 Last data filed at 06/16/2025 0800 Gross per 24 hour Intake 2468.85 ml Output 1805 ml Net 663.85 ml Physical Exam Vitals and nursing note reviewed. Constitutional: Appearance: He is ill-appearing. HENT: Head: Normocephalic. Nose: Comments: DHT present Mouth/Throat: Mouth: Mucous membranes are dry. Eyes: Pupils: Pupils are equal, round, and reactive to light. Cardiovascular: Rate and Rhythm: Normal rate and regular rhythm. Pulses: Normal pulses. Abdominal: General: There is no distension. Tenderness: There is no abdominal tenderness. Comments: DANILO drain present Genitourinary: Comments: Scrotal edema Musculoskeletal: Cervical back: Neck supple. Right lower leg: Edema present. Left lower leg: Edema present. Skin: General: Skin is warm. Capillary Refill: Capillary refill takes less than 2 seconds. Neurological: GCS: GCS eye subscore is 4. GCS verbal subscore is 1. GCS motor subscore is 5. Comments: Unable to follow commands Last BM: Labs in last 18 hours: CBC WBC 12.74 (H) Hb 11.8 (L) Plt 67 (L) Hct 34.2 (L) ANC ?? INR ??, PTT ??, Anti-Xa ?? BMP Na 142 Cl 108 (H) BUN 56 (H) Glu 195 (H) K 3.1 (L) Co2 24 Cr 1.60 (H) Ca 8.5 (L) iCa ?? Mg 2.4, Phos 1.5 (L) Lactate ?? LFT AST ?? AlkPhos ?? T Prot ?? ALK ?? Bili ?? Alb ?? D.Bili ?? Imaging if available: === 06/12/25 === XR CHEST 1 VIEW - Narrative - CLINICAL INDICATION: lung field eval TECHNIQUE: XR CHEST 1 VIEW COMPARISON: 06/15/2025 and 06/14/2025 FINDINGS: Stable support devices. Low lung volumes. Mildly increased hazy opacities in the left mid and lowerlung. Similar small bilateral pleural effusions. No pneumothorax. Stable cardiac silhouette. Nonaggressive appearing sclerosis in the proximal left humeral diaphysis. - Impression - Mildly increased left basilar atelectasis and/or airspace disease. CRITICAL RESULT: No. COMMUNICATION: Per this written report. By electronically signing this report, I, the attending physician, attest that I have personally reviewed the images/data for the above examination(s) and agree with the final edited report. Drafted by Caleb De La Cruz MD on 06/16/2025 8:27 AM Final report signed by Dyllan Swain MD on 06/16/2025 8:36 AM Reviewed and agree with above. Assessment and Plan: Assessment & Plan Prostate CA (CMS/HCC) Present on Admission: Yes 06/12: robot-assisted radical prostatectomy, complicated by severed umbilical vein, 1.3L blood loss Management per primary Severe obesity (BMI 35.0-39.9) with comorbidity (CMS/HCC) Present on Admission: Unknown Complicates all aspects of care. On mechanically assisted ventilation (CMS/HCC) Present on Admission: Not Applicable Intubated for procedure Increased FiO2 overnight 06/13, likely r/t increased PEEP and Shunt PEEP decreased, maintain at 5 Wean FiO2 for SpO2 >92% Continue aggressive pulm secretion mobilization Continue chlorhexidine per vent bundle PST as tolerated PRN CXR, blood gasses and nebs 06/16: Tolerating PS, but not following commands. Continue to hold any sedating medications. Anemia Present on Admission: No Lab Results Component Value Date HGB 12.5 (L) 06/12/2025 , Lab Results Component Value Date HCT 36.2 (L) 06/12/2025 Stable Will continue to monitor Transfuse as appropriate for Hgb>8 Iron, Folate, B12 as appropriate Hyperlipidemia Present on Admission: Yes Hold statin until appropriate to restart Leukocytosis Present on Admission: No WBC Count (10*3/uL) Date/Time Value 06/12/20252126 11.67 (H) Tmax 100*F Multifactorial etiology in setting of recent surgery Pancultures pending; Procal 1.99 Start empiric Vanc/Zosyn Continue to follow Cirrhosis of liver (CMS/HCC) Present on Admission: Yes In setting of AUD MELD score MELD 3.0: 16 at 03/28/2025 6:34 AM MELD-Na: 16 at 03/28/2025 6:34 AM Monitor liver function with daily labs Hyperbilirubinemia Present on Admission: Yes T bili 3.7 In setting of AUD related cirrhosis Monitor with daily labs Esophageal varices Present on Admission: Yes EGD 08/13: gr1 ev; moderate PHG no focal liver lesion Takes Coreg daily Restart home medication when appropriate Renal calculi Present on Admission: Yes Resume home medications when appropriate Monitor kidney function with daily labs Hypertension Present on Admission: Yes Resume home medications as appropriate Alcohol use disorder Present on Admission: Yes 03/28: Reports he is abstinent for 3-4months, then resumes occasional alcohol around 2-3 glasses of wine a few times a week to 2 shots of bourbon a few times a week, last drink about a week ago. Monitor liver function with daily labs -Continue CIWA monitoring - Continue Thiamine/Folate -PETH pending SCC (squamous cell carcinoma), leg, left Present on Admission: Yes Skin biopsy in March 2025 confirmed SCC of left leg Continue to monitor Electrolyte abnormality Present on Admission: No Replace per ICU sliding scale protocol. Hypotension Present on Admission: Unknown -Monitor arterial pressure -Norepi for MAP>65 -Transfuse as needed. Hypocalcemia Present on Admission: Unknown -Monitor daily labs, -ICU electrolyte replacement protocol Critical Care Performed by: Lillian Carrera PA Authorized by: Lillian Carrera PA Critical care provider statement: Critical care time (minutes): 45 Critical care was time spent personally by me on the following activities: Development of treatmentplan with patient or surrogate, discussions with consultants, evaluation of patient's response to treatment, examination of patient, ventilator management, review of old charts, ordering and review of radiographic studies, ordering and review of laboratory studies, ordering and performing treatments and interventions and obtaining history from patient or surrogate Comments: The patient is critically ill with: Prostate cancer, On mechanical ventilation, hypocalcemia, Electrolyte abnormalities, renal calculi, Hypertension, and liver cirrhosis. They require complex decision making. The patient was seen on rounds with critical care physician, Dr. Russell Richardson and they are in agreement with the plan of care. Pharmacy, respiratory and nursing services were present on rounds. JENNIFER Lee * Hospital Course - Wesley Mariely - 06/16/2025 8:04 AM EDT Eber Lowe is a 70 y.o. male with PMH unfavorable intermediate risk prostate cancer, GG3 diffusely on the left, PSA 4.7 who presented to [facility] ED for planned surgical intervention. They weretaken to the operating room on 06/12/25 for planned radical robotic-assisted prostatectomy and bilateral pelvic lymph node dissection, complicated by bleeding requiring exploratory laparotomy, blood transfusion, and pressor support. Bleeding source identified and treated. The patient was subsequently extubated and transferred to the ICU for recovery. ICU course complicated by acute hepatic encephalopathy and decompensated alcohol induced cirrhosis, requiring more time in the ICU. After recovery,the patient was transferred to the floor. It was felt that the patient had reached maximal benefit from hospitalization. They were deemed appropriate for discharge to home. On the day of discharge the patient's pain was controlled on oral medications, they were ambulating, voiding appropriately, passing flatus, and tolerating oral intake. Pt was provided with paper prescription for outpatient PT / OT. The patient was discharged on 06/25/25 to home and will return to clinic in 2-[address] with Dr. Paul. Prostate CA - 06/12: robot-assisted radical prostatectomy, complicated by severed umbilical vein, 1.3L blood loss - Management per primary (Urology) Hypernatremia - Na 151 (06/17) -> 146 (06/18) has been receiving free water flushes per ICU - Urine Sodium, urine creatinine, and osmolality ordered - Serum osmolality ordered - Encourage gentle hydration now that patient has PO diet as patient remains to have 2.5 L free water deficit at this time Acute Encephalopathy likely 2/2 Hypoactive Hospital/ICU Delirium - Patient was placed in mitts overnight. Alert and oriented x3 when seen this afternoon. - Etiology: hypoactive delirium, hepatic encephalopathy, uremia, low clearance of renal and hepaticfunction - CT head Negative for acute abnormality - Ammonia elevated 137. Lactulose started, mentation reportedly improved. - Low concern for infectious due to current abx - UA with reflex micro ordered - CMP, PT/INR ordered - BG venous ordered - Lactulose 10 GM/15ML daily (although no history of hepatic encephalopathy) - Cystatin C ordered Leukocytosis, likely reactive -Multifactorial etiology in setting of recent surgery - Pancultures MURF and BC NGTD, Procal 1.99 - Recently completed course of Linezolid - No acute concern for active infection at this time Cirrhosis of liver (CMS/HCC) MELD 3.0: 26 at 06/14/2025 12:41 AM MELD-Na: 25 at 06/14/2025 12:41 AM Calculated from: Serum Creatinine: 2.36 mg/dL at 06/14/2025 12:41 AM Serum Sodium: 141 mmol/L (Using max of 137 mmol/L) at 06/14/2025 12:41 AM Total Bilirubin: 2.8 mg/dL at 06/12/2025 9:27 PM Serum Albumin: 2.6 g/dL at 06/13/2025 3:35 PM INR(ratio): 1.8 at 06/12/2025 9:27 PM Age at listing (hypothetical): 70 years Sex: Male at 06/14/2025 12:41 AM Possible History of hepatic encephalopathy Possible history of SBP Esophageal varices -EGD 08/13: gr1 ev; moderate PHG no focal liver lesion; Takes Coreg daily Hyperbilirubinemia - T bili 3.7 in setting AUD related cirrhosis - Monitor with daily labs Evaluated by transplant clinic. Not currently listed for transplant Alcohol Use Disorder -03/28: Reports he is abstinent for 3-4months, then resumes occasional alcohol around 2-3 glasses of wine a few times a week to 2 shots of bourbon a few times a week, last drink about a week ago. - Monitor liver function with daily labs - CIWA discontinued, last drink 06/04 per pt report - Continue Folate - Continue PO Thiamine - PETH: 260 was 316 on 03/28/2025. Renal calculi, asymptomatic - Monitor kidney function with daily labs Chronic Medical Conditions: Obesity - Complicates all aspects of care. HLD - resume home statin as able HTN - continue home carvedilol * Progress Notes - Ariadna Ken MD - 06/16/2025 7:49 AM EDT [facility] Urology Inpatient Progress Note Primary Attending: Dyllan Paul MD Procedure(s): RALP with bilateral pelvic lymph node dissection requiring ex-lap 06/12/25 SUBJECTIVE: The patient remains intubated in the ICU this morning. He is currently on PS/CPAP and Nurse informed us that he passed his SBT today. Sedation was stopped at 135AM this morning. Patient responds to tactile stimulus. His DANILO drain has sanguinous output. Scrotal swelling increased since yesterday. PHYSICAL EXAM: Temp: [36.6 ??C (97.9 ??F)-38.3 ??C (100.9 ??F)] 36.6 ??C (97.9 ??F) Heart Rate: [79-105] 94 Resp: [14-25] 14 SpO2: [89 %-100 %] 100 % I O Shift I O 24Hrs LDAs No intake/output data recorded. I/O last 3 completed shifts: In: 3152.3 (29 mL/kg) [I.V.:1847.3 (17 mL/kg); NG/GT:1305] Out: 3325 (30.5 mL/kg) [Urine:2350 (0.6 mL/kg/hr); Drains:975] Weight: 108.9 kg Closed/Suction Drain 1 RUQ Bulb 10 Fr. (Active) Placement Date/Time: 06/12/251854 Inserted by: Dyllan Paul MD Hand Hygiene Completed: Yes Tube Number: 1 Location: RUQ Drain Tube Type: Bulb Size (Fr.): 10 Fr. Drain [place] Size (mL): 100 mL Urethral Catheter Double-lumen;Non-latex 20 Fr. (Active) Placement Date/Time: 06/12/251831 Inserted by: ST Denis, under Dr. Paul's supervision Hand Hygiene Completed: Yes Catheter Type: Double-lumen;Non-latex Tube Size (Fr.): 20 Fr. Difficult Placement: No Number Of Attempts: 1 Urine Re... GEN: Hemodynamically stable HEENT: NCAT RESP: Equal bilateral chest rise, intubated (PS/CPAP) CV: Regular rate, appears well perfused ABD: incisions clean dry and intact with abdominal binder in place, soft abdomen. DANILO draining chylous fluid. : catheter in place draining CYU urine. Scrotal swelling EXT: SCDs in place, peripheral edema NEURO: sedated PSYCH: unable to assess LABS: Results from last 7 days Lab Units 06/16/25 0424 WBC 10*3/uL 12.74* HEMOGLOBIN g/dL 11.8* HEMATOCRIT % 34.2* PLATELETS 10*3/uL 67* Results from last 7 days Lab Units 06/16/25 0424 SODIUM mmol/L 142 POTASSIUM mmol/L 3.1* CHLORIDE mmol/L 108* CO2 mmol/L 24 BUN mg/dL 56* CREATININE mg/dL 1.60* EGFR mL/min/1.73m*2 46.1 GLUCOSE mg/dL 195* CALCIUM mg/dL 8.5* Results from last 7 days Lab Units 06/14/25 0821 COLOR UA Red SPEC GRAV U 1.019 PH UA <=5.0* PROTEIN UR mg/dL 100* GLUCOSE UA mg/dL Negative KETONES UA mg/dL Negative LEUKOCYTES UA Moderate* NITRITE UA Positive* RBC, URINE /HPF >50* WBC, URINE /HPF Unable to estimate due to obscuring RBC's (UNERBC) SQUAMOUS /HPF Unable to estimate due to obscuring RBC's (UNERBC) BACTERIA UR HPF Unable to estimate due to obscuring RBC's (UNERBC) IMAGING: All personally reviewed CXR 06/16 Increased radiodensities b/l lung [place] [facility] PROBLEM LIST: Principal Problem: Prostate CA (CMS/HCC) Active Problems: Severe obesity (BMI 35.0-39.9) with comorbidity (CMS/HCC) On mechanically assisted ventilation (CMS/HCC) Anemia Hyperlipidemia Leukocytosis Cirrhosis of liver (CMS/HCC) Hyperbilirubinemia Esophageal varices Renal calculi Hypertension Alcohol use disorder SCC (squamous cell carcinoma), leg, left Electrolyte abnormality Hypotension Hypocalcemia ASSESSMENT: Eber Lowe is a 70 y.o. male with hx of cirrhosis (MELD-Na 16), HLD, HTN, kidney stones, esophageal varices, AUD, and prostate cancer who is s/p RALP with bilateral pelvic lymph node dissection complicated by transection of a patent umbilical vein requiring transfusions and ex lap for repair on 06/12/25. Patient is currently on PS/CPAP and no sedation. DANILO draining chylous fluid today . Patient passed SBT today. CXR shows worsening bilateral pleural effusions and basal atelectasis vs. Yesterday. PLAN: -wean off vent as able per ICU team -continue DANILO drain and martinez catheter -NPO + mIVF -continue A line to closely monitor hemodynamics, appreciate CCM with resuscitation postoperatively -daily AM labs -agree with abdominal binder -[facility] -urology will closely follow -c/w scrotal elevation Ariadna Vegas MD Cosigned by Dyllan Paul MD at 06/17/2025 9:26 AM EDT Associated attestation - Dyllan Paul MD - 06/17/2025 9:26 AM EDT I saw and evaluated the patient. I discussed the case with the resident/fellow and agree with the findings and plan as documented. * Clinician Note - Fartun See - 06/16/2025 7:13 AM EDT Occupational Therapy Attempt Patient Name: Eber Lowe Today's Date: 06/16/2025 Patient was attempted to be seen by occupational therapy 06/16/2025 for OT Evaluation however patient not appropriate due to medical status (Pending extubation). Occupational therapy team will follow-up when medically appropriate. Written by Fartun See on 06/16/25 at 7:13 AM. * Clinician Note - Carol Lott I - 06/16/2025 7:12 AM EDT Physical Therapy Attempt Patient Name: Eber Lowe Today's Date: 06/16/2025 Patient was attempted to be seen by physical therapy 06/16/2025 for PT Evaluation however Patient intubated and sedated.. Physical therapy team will follow-up when medically appropriate. Written by Carol Lott on 06/16/25 at 7:12 AM. * Care Plan - Oh Silvestre - 06/15/2025 9:38 PM EDT Problem: Mechanical Ventilation Invasive Goal: Effective Communication Outcome: Ongoing, Progressing Goal: Optimal Device Function Outcome: Ongoing, Progressing Goal: Mechanical Ventilation Liberation Outcome: Ongoing, Progressing Goal: Absence of Device-Related Skin and Tissue Injury Outcome: Ongoing, Progressing Goal: Absence of Ventilator-Induced Lung Injury Outcome: Ongoing, Progressing * Teleconsult - Mick Chance MD - 06/15/2025 8:20 PM EDT 06/15/25 Eber Barone Mynor Asked by RN to review and reorder restraints. Chart reviewed and patient visualized. Patient has continued need for restraints. Order renewed. Mick Chance MD * Progress Notes - Shayna Crawford - 06/15/2025 10:59 AM EDT [facility]rology Inpatient Progress Note Primary Attending: Dyllan Paul MD Procedure(s): RALP with bilateral pelvic lymph node dissection requiring ex-lap 06/12/25 SUBJECTIVE: The patient remains intubated in the ICU this morning. When we got there they had just turned down Propofol to 15 mcg/kg/min. Patient was not arousable. At bedside, he is on PS/CPAP. They decreased his FiO2 to 60% from 80%. Patient SaO2 91%. His DANILO drain has sanguinous output. New scrotal swelling noted overnight. PHYSICAL EXAM: Temp: [37.3 ??C (99.2 ??F)-37.9 ??C (100.3 ??F)] 37.6 ??C (99.7 ??F) Heart Rate: [95-111] 101 Resp: [16-22] 18 SpO2: [89 %-96 %] 90 % I O Shift I O 24Hrs LDAs I/O this shift: In: - Out: 245 [Urine:125; Drains:120] I/O last 3 completed shifts: In: 5250 (48.2 mL/kg) [I.V.:4853 (44.6 mL/kg); NG/GT:397] Out: 2635 (24.2 mL/kg) [Urine:1625 (0.4 mL/kg/hr); Drains:1010] Weight: 108.9 kg Closed/Suction Drain 1 RUQ Bulb 10 Fr. (Active) Placement Date/Time: 06/12/25 185 Inserted by: Dyllan Paul MD Hand Hygiene Completed: Yes Tube Number: 1 Location: RUQ Drain Tube Type: Bulb Size (Fr.): 10 Fr. Drain [place] Size (mL): 100 mL Urethral Catheter Double-lumen;Non-latex 20 Fr. (Active) Placement Date/Time: 06/12/25 1832 Inserted by: ST Denis, under Dr. Paul's supervision Hand Hygiene Completed: Yes Catheter Type: Double-lumen;Non-latex Tube Size (Fr.): 20 Fr. Difficult Placement: No Number Of Attempts: 1 Urine Re... GEN: Hemodynamically stable HEENT: NCAT RESP: Equal bilateral chest rise, intubated CV: Regular rate, appears well perfused ABD: incisions clean dry and intact with abdominal binder in place : catheter in place draining concentrated urine. Scrotal swelling EXT: SCDs in place NEURO: sedated PSYCH: unable to assess LABS: Results from last 7 days Lab Units 06/15/25 0025 WBC 10*3/uL 15.49* HEMOGLOBIN g/dL 11.6* HEMATOCRIT % 33.1* PLATELETS 10*3/uL 68* Results from last 7 days Lab Units 06/15/25 0025 SODIUM mmol/L 137 POTASSIUM mmol/L 3.8 CHLORIDE mmol/L 107 CO2 mmol/L 23 BUN mg/dL 58* CREATININE mg/dL 2.18* EGFR mL/min/1.73m*2 31.8 GLUCOSE mg/dL 168* CALCIUM mg/dL 7.9* Results from last 7 days Lab Units 06/14/25 0821 COLOR UA Red SPEC GRAV U 1.019 PH UA <=5.0* PROTEIN UR mg/dL 100* GLUCOSE UA mg/dL Negative KETONES UA mg/dL Negative LEUKOCYTES UA Moderate* NITRITE UA Positive* RBC, URINE /HPF >50* WBC, URINE /HPF Unable to estimate due to obscuring RBC's (UNERBC) SQUAMOUS /HPF Unable to estimate due to obscuring RBC's (UNERBC) BACTERIA UR HPF Unable to estimate due to obscuring RBC's (UNERBC) IMAGING: All personally reviewed HOSPITAL PROBLEM LIST: Principal Problem: Prostate CA (CMS/HCC) Active Problems: Severe obesity (BMI 35.0-39.9) with comorbidity (CMS/HCC) On mechanically assisted ventilation (CMS/HCC) Anemia Hyperlipidemia Leukocytosis Cirrhosis of liver (CMS/HCC) Hyperbilirubinemia Esophageal varices Renal calculi Hypertension Alcohol use disorder SCC (squamous cell carcinoma), leg, left Electrolyte abnormality Hypotension Hypocalcemia ASSESSMENT: Eber Lowe is a 70 y.o. male with hx of cirrhosis (MELD-Na 16), HLD, HTN, kidney stones, esophageal varices, AUD, and prostate cancer who is s/p RALP with bilateral pelvic lymph node dissection complicated by transection of a patent umbilical vein requiring transfusions and ex lap for repair on 06/12/25. After his case, he struggled coming off of the ventilator with appropriate satur ations and remained intubated in sedated with CCM consulted postoperatively for co management. Decreased his FiO2 to 60% from 80%. Patient SaO2 91%. PLAN: -wean off vent as able per ICU team -continue DANILO drain and martinez catheter -NPO + mIVF while intubated and sedated -continue A line to closely monitor hemodynamics, appreciate CCM with resuscitation postoperatively -daily AM labs -agree with abdominal binder -[facility] -urology will closely follow -c/w scrotal elevation Shayna Crawford Cosigned by Eugene Meyer MD at 06/15/2025 12:29 PM EDT Associated attestation - Eugene Meyer MD - 06/15/2025 12:29 PM EDT I saw and evaluated the patient with the resident/medical student team. I discussed the case with the resident/fellow and agree with the findings and plan as documented by the medical student. * Assessment & Plan Note - Corry Doss APRN, DNP - 06/15/2025 9:12 AM EDTAssociated Problem(s): Prostate CA (CMS/HCC) (Resolved 07/31/2025) 06/12: robot-assisted radical prostatectomy, complicated by severed umbilical vein, 1.3L blood loss Management per primary * Assessment & Plan Note - Corry Doss APRN, DNP - 06/15/2025 9:12 AM EDTAssociated Problem(s): Severe obesity (BMI 35.0-39.9) with comorbidity (CMS/HCC) Complicates all aspects of care. * Assessment & Plan Note - Corry Doss APRN, DNP - 06/15/2025 9:12 AM EDTAssociated Problem(s): On mechanically assisted ventilation (CMS/HCC) (Resolved 06/18/2025) Intubated for procedure Increased FiO2 overnight 06/13, likely r/t increased PEEP and Shunt PEEP decreased, maintain at 5 Wean FiO2 for SpO2 >92% Continue aggressive pulm secretion mobilization Continue chlorhexidine per vent bundle PST as tolerated PRN CXR, blood gasses and nebs * Assessment & Plan Note - Corry Doss APRN, DNP - 06/15/2025 9:12 AM EDTAssociated Problem(s): Anemia Lab Results Component Value Date HGB 12.5 (L) 06/12/2025 , Lab Results Component Value Date HCT 36.2 (L) 06/12/2025 Stable Will continue to monitor Transfuse as appropriate for Hgb>8 Iron, Folate, B12 as appropriate * Assessment & Plan Note - Corry Doss APRN, DNP - 06/15/2025 9:12 AM EDTAssociated Problem(s): Hyperlipidemia Hold statin until appropriate to restart * Assessment & Plan Note - Corry Doss APRN, DNP - 06/15/2025 9:12 AM EDTAssociated Problem(s): Leukocytosis WBC Count (10*3/uL) Date/Time Value 06/12/20252126 11.67 (H) Tmax 100*F Multifactorial etiology in setting of recent surgery Pancultures pending; Procal 1.99 Start empiric Vanc/Zosyn Continue to follow * Assessment & Plan Note - Corry Doss APRN, DNP - 06/15/2025 9:12 AM EDTAssociated Problem(s): Cirrhosis of liver (CMS/HCC) In setting of AUD MELD score MELD 3.0: 16 at 03/28/2025 6:34 AM MELD-Na: 16 at 03/28/2025 6:34 AM Monitor liver function with daily labs * Assessment & Plan Note - Corry Doss APRN, DNP - 06/15/2025 9:12 AM EDTAssociated Problem(s): Hyperbilirubinemia T bili 3.7 In setting of AUD related cirrhosis Monitor with daily labs * Assessment & Plan Note - Corry Doss APRN, DNP - 06/15/2025 9:12 AM EDTAssociated Problem(s): Esophageal varices EGD 08/13: gr1 ev; moderate PHG no focal liver lesion Takes Coreg daily Restart home medication when appropriate * Assessment & Plan Note - Corry Doss APRN, DNP - 06/15/2025 9:12 AM EDTAssociated Problem(s): Renal calculi Resume home medications when appropriate Monitor kidney function with daily labs * Assessment & Plan Note - Corry Doss APRN, DNP - 06/15/2025 9:12 AM EDTAssociated Problem(s): Hypertension Resume home medications as appropriate * Assessment & Plan Note - Corry Doss APRN, DNP - 06/15/2025 9:12 AM EDTAssociated Problem(s): Alcohol use disorder 03/28: Reports he is abstinent for 3-4months, then resumes occasional alcohol around 2-3 glasses of wine a few times a week to 2 shots of bourbon a few times a week, last drink about a week ago. Monitor liver function with daily labs -CIWA, -Thiamine/Folate -PETH pending * Assessment & Plan Note - Corry Doss APRN, DNP - 06/15/2025 9:12 AM EDTAssociated Problem(s): SCC (squamous cell carcinoma), leg, left Skin biopsy in March 2025 confirmed SCC of left leg Continue to monitor * Assessment & Plan Note - Corry Doss APRN, DNP - 06/15/2025 9:12 AM EDTAssociated Problem(s): Electrolyte abnormality Replace per ICU sliding scale protocol. * Assessment & Plan Note - Corry Doss APRN, DNP - 06/15/2025 9:12 AM EDTAssociated Problem(s): Hypotension -Monitor arterial pressure -Norepi for MAP>65 -Transfuse as needed. * Assessment & Plan Note - Corry Doss APRN, DNP - 06/15/2025 9:12 AM EDTAssociated Problem(s): Hypocalcemia (Resolved 06/18/2025) -Monitor daily labs, -ICU electrolyte replacement protocol * Progress Notes - Corry Doss APRN, DNP - 06/15/2025 9:09 AM EDT Associated Order(s): Critical Care Post-Procedure Diagnose(s): Prostate CA 06/15/25 Eber Lowe is a 70 y.o. male who presents with Prostate CA (CMS/HCC) Past 24 hours: Mr. Lowe had no acute events overnight. He remains hemodynamically stable on mechanical ventilation with weaning Fio2 requirements. Continue antibiotics and wean FiO2 as able. GCS: Sherri Coma Scale Score: 10 Review of Systems Unable to perform ROS: Intubated Vital signs: Vitals: 06/15/25 0800 BP: Pulse: 97 Resp: 17 Temp: SpO2: 95% Intake/Output Summary (Last 24 hours) at 06/15/2025 0909 Last data filed at 06/15/2025 0800 Gross per 24 hour Intake 2218.4 ml Output 2110 ml Net 108.4 ml Physical Exam: Physical Exam Vitals and nursing note reviewed. Constitutional: Appearance: Normal appearance. He is overweight. Interventions: He is sedated, intubated and restrained. HENT: Head: Normocephalic and atraumatic. Nose: Nose normal. Comments: DHT in place Mouth/Throat: Mouth: Mucous membranes are moist. Eyes: Extraocular Movements: Extraocular movements intact. Conjunctiva/sclera: Conjunctivae normal. Pupils: Pupils are equal, round, and reactive to light. Cardiovascular: Rate and Rhythm: Regular rhythm. Tachycardia present. Pulses: Normal pulses. Heart sounds: Normal heart sounds. Pulmonary: Effort: He is intubated. Breath sounds: Normal air entry. Decreased breath sounds present. Abdominal: General: There is distension. Tenderness: There is no abdominal tenderness. There is no guarding. Comments: Abd firm to palpation Genitourinary: Comments: FC w/ CYU Musculoskeletal: General: Normal range of motion. Right lower leg: No edema. Left lower leg: No edema. Skin: General: Skin is warm and dry. Capillary Refill: Capillary refill takes less than 2 seconds. Neurological: Mental Status: He is lethargic. GCS: GCS eye subscore is 4. GCS verbal subscore is 1. GCS motor subscore is 6. Labs in last 18 hours: CBC WBC 15.49 (H) Hb 11.6 (L) Plt 68 (L) Hct 33.1 (L) ANC ?? INR ??, PTT ??, Anti-Xa ?? BMP Na 137 Cl 107 BUN 58 (H) Glu 168 (H) K 3.8 Co2 23 Cr 2.18 (H) Ca 7.9 (L) iCa 4.5 (L) Mg 2.3, Phos 3.2 Lactate 1.5 LFT AST ?? AlkPhos ?? T Prot ?? ALK ?? Bili ?? Alb ?? D.Bili ?? Imaging if available: XR Abdomen 1 View Narrative: CLINICAL INDICATION: Ileus TECHNIQUE: XR ABDOMEN 1 VIEW COMPARISON: CT abdomen pelvis April 03, 2020 FINDINGS: The feeding tube terminates in a peripyloric location. Cholecystectomy clips. Nonobstructive bowel gas pattern. Impression: Peripyloric feeding tube CRITICAL RESULT: No. COMMUNICATION: Per this written report. Drafted by Quentin Oliva MD on 06/14/2025 8:40 AM Final report signed by Quentin Oliva MD on 06/14/2025 8:41 AM XR Chest 1 View Narrative: CLINICAL INDICATION: eval lung ocampo and OETT position TECHNIQUE: XR CHEST 1 VIEW COMPARISON: Chest radiograph 06/12/2025 FINDINGS: Endotracheal tube terminates 4.1 cm above the vincent. Tip of a feeding tube terminate in the stomach or first segment of the duodenum. Mildly reduced lung volumes. Left basilar opacities. The cardiomediastinal silhouette is within normal limits for size. No pneumothorax. No pleural effusion. No acute osseous abnormality. Impression: * Support hardware, as described. * Low lung volumes with left basilar opacities favored to reflect atelectasis. CRITICAL RESULT: No. COMMUNICATION: Per this written report. Drafted by Brian Thompson MD on 06/14/2025 4:29 AM Final report signed by Brian Thompson MD on 06/14/2025 4:30 AM Reviewed and agree with above. Assessment and Plan: This patient is critically ill. Assessment & Plan Prostate CA (CMS/HCC) Present on Admission: Yes 06/12: robot-assisted radical prostatectomy, complicated by severed umbilical vein, 1.3L blood loss Management per primary Severe obesity (BMI 35.0-39.9) with comorbidity (CMS/HCC) Present on Admission: Unknown Complicates all aspects of care. On mechanically assisted ventilation (CMS/HCC) Present on Admission: Not Applicable Intubated for procedure Increased FiO2 overnight 06/13, likely r/t increased PEEP and Shunt PEEP decreased, maintain at 5 Wean FiO2 for SpO2 >92% Continue aggressive pulm secretion mobilization Continue chlorhexidine per vent bundle PST as tolerated PRN CXR, blood gasses and nebs Anemia Present on Admission: No Lab Results Component Value Date HGB 12.5 (L) 06/12/2025 , Lab Results Component Value Date HCT 36.2 (L) 06/12/2025 Stable Will continue to monitor Transfuse as appropriate for Hgb>8 Iron, Folate, B12 as appropriate Hyperlipidemia Present on Admission: Yes Hold statin until appropriate to restart Leukocytosis Present on Admission: No WBC Count (10*3/uL) Date/Time Value 06/12/20252126 11.67 (H) Tmax 100*F Multifactorial etiology in setting of recent surgery Pancultures pending; Procal 1.99 Start empiric Vanc/Zosyn Continue to follow Cirrhosis of liver (CMS/HCC) Present on Admission: Yes In setting of AUD MELD score MELD 3.0: 16 at 03/28/2025 6:34 AM MELD-Na: 16 at 03/28/2025 6:34 AM Monitor liver function with daily labs Hyperbilirubinemia Present on Admission: Yes T bili 3.7 In setting of AUD related cirrhosis Monitor with daily labs Esophageal varices Present on Admission: Yes EGD 08/13: gr1 ev; moderate PHG no focal liver lesion Takes Coreg daily Restart home medication when appropriate Renal calculi Present on Admission: Yes Resume home medications when appropriate Monitor kidney function with daily labs Hypertension Present on Admission: Yes Resume home medications as appropriate Alcohol use disorder Present on Admission: Yes 03/28: Reports he is abstinent for 3-4months, then resumes occasional alcohol around 2-3 glasses of wine a few times a week to 2 shots of bourbon a few times a week, last drink about a week ago. Monitor liver function with daily labs -CIWA, -Thiamine/Folate -PETH pending SCC (squamous cell carcinoma), leg, left Present on Admission: Yes Skin biopsy in March 2025 confirmed SCC of left leg Continue to monitor Electrolyte abnormality Present on Admission: No Replace per ICU sliding scale protocol. Hypotension Present on Admission: Unknown -Monitor arterial pressure -Norepi for MAP>65 -Transfuse as needed. Hypocalcemia Present on Admission: Unknown -Monitor daily labs, -ICU electrolyte replacement protocol Feeding: NPO diet Tube Feeding Tube feeding formula: Novasource Renal; Route of feeding: Nasogastric; Tube feeding schedule: Continuous; Tube feeding continous initial Rate (ml/hr): 20; Advance by (ml): 10; Advance every (hr): 6; Tube feeding continuous goal rate (... Analgesia: Pain Score: 0 Sedation: RASS RASS: Moderate sedation Level of Consciousness: Sedated Thromboembolic prophylaxis: Last Anticoag Admin heparin (porcine) injection 5,000 Units Given 5,000 Units at 06/12/25 1431 Frequency: Once No unadministered anticoagulant orders found. Head of bed: >30 Ulcer prophylaxis: PPI Glucose control: GLU: 168 mg/dL (06/15 25) Spontaneous breathing trials: O2 Delivery Method: Mechanical ventilator Vent Mode: PS/CPAP Invasive Vent Status (ETT, Trach Only): In use Pressure Control Above PEEP (cmH2O): 10 S VT: 500 mL GA SUP: 8 cm H20 Insp Time (sec): 0.9 sec Vent Mode: PS/CPAP FiO2 (%): 80 % S RR: 14 S VT: 500 mL GA SUP: 8 cm H20 MAP (cm H2O): 7.5 Bowel regimen: Martinez Care Castile Wipes Used: Yes Invasive lines: Patient Lines/Drains/Airways Status Active Active LDAs Name Placement date Placement time Site Days Peripheral IV 06/12/25 Left Arm 06/12/25 1518 Arm 2 Peripheral IV 06/13/25 Left;Upper Arm 06/13/25 0414 Arm 2 Peripheral IV 06/13/25 Anterior;Distal;Right;Upper Arm 06/13/25 1045 Arm 1 Closed/Suction Drain 1 RUQ Bulb 10 Fr. 06/12/25 1855 RUQ 2 Urethral Catheter Double-lumen;Non-latex 20 Fr. 06/12/25 1832 -- 2 ETT ETT - single 8 mm 06/12/25 1450 Oral 2 Arterial Line 06/12/25 Right Radial 06/12/25 2125 Radial 2 Feeding Tube Gastric 10 Fr. Left nare 06/13/25 1438 Left nare 1 De-escalation: Continue routine ICU care Critical Care Performed by: Corry Doss APRN, DNP Authorized by: Corry Doss APRN, DNP Critical care provider statement: Critical care time (minutes): 42 Critical care time was exclusive of: Separately billable procedures and treating other patients Critical care was time spent personally by me on the following activities: Development of treatmentplan with patient or surrogate, discussions with consultants, discussions with primary provider, evaluation of patient's response to treatment, obtaining history from patient or surrogate, examination of patient, ordering and performing treatments and interventions, ordering and review of laboratory studies, ordering and review of radiographic studies, review of old charts and ventilator management Corry Doss APRN, DNP * Care Plan - Luisa Anne - 06/15/2025 7:56 AM EDT Problem: Mechanical Ventilation Invasive Goal: Optimal Device Function Outcome: Ongoing, Progressing * Clinician Note - Carol Lott I - 06/15/2025 7:23 AM EDT Physical Therapy Attempt Patient Name: Eber Lowe Today's Date: 06/15/2025 Patient was attempted to be seen by physical therapy 06/15/2025 for PT Evaluation however Patient intubated and sedated.. Physical therapy team will follow-up when medically appropriate. Written by Carol Lott on 06/15/25 at 7:23 AM. * Clinician Note - Fartun See - 06/15/2025 7:21 AM EDT Occupational Therapy Attempt Patient Name: Eber Lowe Today's Date: 06/15/2025 Patient was attempted to be seen by occupational therapy 06/15/2025 for OT Evaluation however Patient intubated and sedated.. Occupational therapy team will follow-up when medically appropriate. Written by Fartun See on 06/15/25 at 7:21 AM. * Care Plan - Veronica Christiansen - 06/15/2025 3:09 AM EDT Problem: Adult Inpatient Plan of Care Goal: Plan of Care Review Outcome: Ongoing, Progressing Flowsheets (Taken 06/15/2025 0308) Progress: improving Plan of Care Reviewed With: spouse Goal: Patient-Specific Goal (Individualized) Outcome: Ongoing, Progressing Goal: Absence of Hospital-Acquired Illness or Injury Outcome: Ongoing, Progressing Goal: Optimal Comfort and Wellbeing Outcome: Ongoing, Progressing Goal: Readiness for Transition of Care Outcome: Ongoing, Progressing Problem: Infection Goal: Absence of Infection Signs and Symptoms Outcome: Ongoing, Progressing Problem: Mechanical Ventilation Invasive Goal: Effective Communication Outcome: Ongoing, Progressing Goal: Optimal Device Function Outcome: Ongoing, Progressing Goal: Mechanical Ventilation Liberation Outcome: Ongoing, Progressing Goal: Optimal Nutrition Delivery Outcome: Ongoing, Progressing Goal: Absence of Device-Related Skin and Tissue Injury Outcome: Ongoing, Progressing Goal: Absence of Ventilator-Induced Lung Injury Outcome: Ongoing, Progressing Problem: Skin Injury Risk Increased Goal: Skin Health and Integrity Outcome: Ongoing, Progressing Problem: Fall Injury Risk Goal: Absence of Fall and Fall-Related Injury Outcome: Ongoing, Progressing Problem: Restraint, Nonviolent Goal: Absence of Harm or Injury Outcome: Ongoing, Progressing * Care Plan - Yunior Guillen - 06/14/2025 11:52 PM EDT Problem: Mechanical Ventilation Invasive Goal: Optimal Device Function Outcome: Ongoing, Progressing * Progress Notes - Pedro Bucio MD - 06/14/2025 7:37 PM EDT 06/14/25 Eber Lowe Asked by RN to review and reorder restraints. Chart reviewed and patient visualized. Patient has continued need for restraints. Order renewed. Pedro Bucio MD * Progress Notes - Ariadna Ken MD - 06/14/2025 11:56 AM EDT [facility] Inpatient Progress Note Primary Attending: Dyllan Paul MD Procedure(s): RALP with bilateral pelvic lymph node dissection requiring ex-lap 06/12/25 SUBJECTIVE: The patient remains intubated and sedated in the ICU this morning. He failed his spontaneous breathing trial yesterday. He was saturating in the 70's. Today, patient FiO2 was increased to 90% due to desaturation to 80's. At bedside, he is on pressure regulated volume control. His DANILO drain has sanguinous output. PHYSICAL EXAM: Temp: [36.6 ??C (97.9 ??F)-37.8 ??C (100 ??F)] 37.8 ??C (100 ??F) Heart Rate: [95-116] 116 Resp: [0-31] 21 SpO2: [88 %-96 %] 90 % I O Shift I O 24Hrs LDAs I/O this shift: In: - Out: 385 [Urine:275; Drains:110] I/O last 3 completed shifts: In: 8853.6 (81.3 mL/kg) [I.V.:8153.6 (74.9 mL/kg); Blood:700] Out: 3429 (31.5 mL/kg) [Urine:759 (0.2 mL/kg/hr); Drains:1370; Blood:1300] Weight: 108.9 kg Closed/Suction Drain 1 RUQ Bulb 10 Fr. (Active) Placement Date/Time: 06/12/251854 Inserted by: Dyllan Paul MD Hand Hygiene Completed: Yes Tube Number: 1 Location: RUQ Drain Tube Type: Bulb Size (Fr.): 10 Fr. Drain [place] Size (mL): 100 mL Urethral Catheter Double-lumen;Non-latex 20 Fr. (Active) Placement Date/Time: 06/12/251831 Inserted by: ST Denis, under Dr. Paul's supervision Hand Hygiene Completed: Yes Catheter Type: Double-lumen;Non-latex Tube Size (Fr.): 20 Fr. Difficult Placement: No Number Of Attempts: 1 Urine Re... GEN: Hemodynamically stable HEENT: NCAT RESP: Equal bilateral chest rise, intubated CV: Regular rate, appears well perfused ABD: incisions clean dry and intact with abdominal binder in place : catheter in place draining concentrated urine EXT: SCDs in place NEURO: sedated PSYCH: unable to assess LABS: Results from last 7 days Lab Units 06/14/25 0041 WBC 10*3/uL 21.40* HEMOGLOBIN g/dL 12.4* HEMATOCRIT % 36.0* PLATELETS 10*3/uL 86* Results from last 7 days Lab Units 06/14/25 0041 SODIUM mmol/L 141 POTASSIUM mmol/L 4.8 CHLORIDE mmol/L 107 CO2 mmol/L 23 BUN mg/dL 41* CREATININE mg/dL 2.36* EGFR mL/min/1.73m*2 28.9 GLUCOSE mg/dL 144* CALCIUM mg/dL 7.9* Results from last 7 days Lab Units 06/14/25 0821 COLOR UA Red SPEC GRAV U 1.019 PH UA <=5.0* PROTEIN UR mg/dL 100* GLUCOSE UA mg/dL Negative KETONES UA mg/dL Negative LEUKOCYTES UA Moderate* NITRITE UA Positive* RBC, URINE /HPF >50* WBC, URINE /HPF Unable to estimate due to obscuring RBC's (UNERBC) SQUAMOUS /HPF Unable to estimate due to obscuring RBC's (UNERBC) BACTERIA UR HPF Unable to estimate due to obscuring RBC's (UNERBC) IMAGING: All personally reviewed XR Abdomen 1 View Result Date: 06/14/2025 Impression: Peripyloric feeding tube CRITICAL RESULT: No. COMMUNICATION: Per this written report. Drafted by Quentin Oliva MD on 06/14/2025 8:40 AM Final report signed by Quentin Oliva MD on 06/14/2025 8:41 AM XR Chest 1 View Result Date: 06/14/2025 Impression: * Support hardware, as described. * Low lung volumes with left basilar opacities favored to reflect atelectasis. CRITICAL RESULT: No. COMMUNICATION: Per this written report. Drafted by Brian Thompson MD on 06/14/2025 4:29 AM Final report signed by Brian Thompson MD on 06/14/2025 4:30 AM HOSPITAL PROBLEM LIST: Principal Problem: Prostate CA (CMS/HCC) Active Problems: Severe obesity (BMI 35.0-39.9) with comorbidity (CMS/HCC) On mechanically assisted ventilation (CMS/HCC) Anemia Hyperlipidemia Leukocytosis Cirrhosis of liver (CMS/HCC) Hyperbilirubinemia Esophageal varices Renal calculi Hypertension Alcohol use disorder SCC (squamous cell carcinoma), leg, left Electrolyte abnormality Hypotension Hypocalcemia ASSESSMENT: Eber Lowe is a 70 y.o. male with hx of cirrhosis (MELD-Na 16), HLD, HTN, kidney stones, esophageal varices, AUD, and prostate cancer who is s/p RALP with bilateral pelvic lymph node dissection complicated by transection of a patent umbilical vein requiring transfusions and ex lap for repair on 06/12/25. After his case, he struggled coming off of the ventilator with appropriate satur ations and remained intubated in sedated with CCM consulted postoperatively for co management. He failed his SBT yesterday and was desaturating to mid-80's today on 70% FiO2. Respiratory therapist increased FiO2 90% to maintain SaO2 94%. He remains intubated and sedated this morning. His catheter is draining concentrated urine. His DANILO drain has sanguinous output. PLAN: -wean off vent as able per ICU team -continue DANILO drain and martinez catheter -NPO + mIVF while intubated and sedated -continue A line to closely monitor hemodynamics, appreciate CCM with resuscitation postoperatively -daily AM labs -agree with abdominal binder -[facility] -urology will closely follow Ariadna Vegas MD Cosigned by Eugene Meyer MD at 06/14/2025 1:38 PM EDT Associated attestation - Eugene Meyer MD - 06/14/2025 1:38 PM EDT I saw and evaluated the patient with the resident/fellow. I discussed the case with the resident/fellow and agree with the findings and plan as documented. Remains critically ill and unable to extubate safely. Abdominal exam is benign, catheter draining well. * Consults - Lillian Martin - 06/14/2025 11:30 AM EDTAssociated Order(s): IP CONSULT TO NUTRITION SERVICES Adult Nutrition Evaluation Note Eber Lowe 70 y.o. male CSN: [id number] Room/Bed 239/239A Nutrition evaluation type: follow-up Reason for evaluation: provider consult Hospital course: 70 y.o male admitted with prostate cancer. OR 06/12 for robot assisted laparotomy prostatectomy with bilateral pelvic lymph node dissection requiring ex-lap. Past medical/ surgical history: Past Medical History[1] Surgical History[2] Social history: Additional comments: Vitals and Basic Assessment: BP: 112/77 Temp: 37.8 ??C (100 ??F) Invasive Ventilator Initiated (ETT/Trach Only): Yes Oxygen Therapy: Supplemental oxygen O2 Delivery Method: Mechanical ventilator [place] Coma Scale Score: 10 Héctor/Cubbin Pressure Risk Score: 25 GI Symptoms: None Edema: Generalized, Right lower extremity, Left lower extremity Allergies: NKFA Medications: Current Scheduled Medications[3] Current Continuous Medications[4] Current PRN Medications[5] Propofol: 13.08 ml/hr - 345kcals Meds were reviewed: Yes Labs: BMP Na 141 Cl 107 BUN 41 (H) Glu 144 (H) K 4.8 Co2 23 Cr 2.36 (H) Ca 7.9 (L) iCa 4.3 (L) Mg 2.4, Phos 6.6 (H) Lactate 2.1 (H) No results found for: CHOL , TRIG , HDL , LDLCALC No results found for: HGBA1C Elevated lactate Monitor Phosphorus Anthropometrics: Height: 175.3 cm (5' 9 ) Weight: 109 kg (240 lb) BMI (Calculated): 35.43 Weight Evaluation: Obese-Class 2 (BMI 35-39.9) [place] Body Weight (kg): 72.7 Percent [place] Body Weight: 150 Adjusted Body Weight (kg): 82 Estimated Needs: Kcal/ K - 20 Kcal Provided: 1635 - 2180 Kcal Needs Based On: Current weight Gm Protein/ Kg : 1.5 - 2.0 Protein Provided: 109 - 145 Protein Needs Based On: [place] weight Metabolic Cart Study Results: Current Nutrition Intake: Diet Supplements: None Diet Order: NPO Diet Experience and Nutrition History: Diet Education Provided: Will monitor Pertinent home medications: Multivitamin, Metamucil, Vitamin E Nutrition Focused Physical Exam: Physical exam performed on (date): 06/13 Temples (muscles): None Clavicle (muscle): None Orbital (fat): Mild Triceps (fat): None Assessment of Malnutrition: Malnutrition Identified: No Nutrition Problem: Inadequate oral intake related to mechanical vent as evidenced by NPO diet. Status of Nutrition Diagnosis: Ongoing Nutrition Interventions and Recommendations: TF recs with current propofol: Novasource Renal @ 40 ml/hr +1 Beneprotein TID Provides 1850 kcal, 96g pro, 0g fiber, 634 ml water Can start at 20 ml/hr advance by 10 ml q 6 hours Free water per team 2. Document intakes Nutrition Monitoring and Goals: - Tolerate >80% of goal - Monitor weight, labs, and elytes - Monitor renal lab trends Acuity Level: [address], LD Weekend Dietitian [1] Past Medical History: Diagnosis Date Cancer (CMS/HCC) january 26, 2025 Cirrhosis (CMS/HCC) 2021 History of methicillin resistant Staphylococcus aureus 2011 Hyperlipidemia Hypertension Kidney stone various Substance abuse alcohol [2] Past Surgical History: Procedure Laterality Date CHOLECYSTECTOMY 2009 lap KNEE ARTHROSCOPY W/ MENISCAL REPAIR OTHER SURGICAL HISTORY Lipoma resection UMBILICAL HERNIA REPAIR [3] folic acid, 1 mg, Oral, Daily ipratropium-albuterol, 3 mL, Nebulization, q6h RT lidocaine, 1 patch, Apply externally, q24h methocarbamol, 750 mg, Oral, 4x daily mupirocin, 1 Application, Each Nostril, BID pantoprazole, 40 mg, Intravenous, Daily piperacillin-tazobactam, 4.5 g, Intravenous, q8h senna-docusate, 1 tablet, Oral, Nightly sodium chloride, 10 mL, Intravenous, q12h thiamine, 200 mg, Intravenous, q8h vancomycin, 15 mg/kg, Intravenous, Once vancomycin (Vancocin) intermittent dosing, 1 each, Intravenous, See admin instructions [4] lactated Ringer's, 84 mL/hr, Last Rate: 84 mL/hr (06/14/25 0700) propofol, 10-50 mcg/kg/min, Last Rate: 20 mcg/kg/min (06/14/25 0907) [5] PRN medications: diazePAM OR diazePAM OR diazePAM OR diazePAM OR diazePAM, HYDROmorphone OR HYDROmorphone, melatonin, ondansetron, [COMPLETED] Insert peripheral IV AND Saline lock IV AND sodium chloride AND sodium chloride * Progress Notes - Sarah Bob PharmD - 06/14/2025 10:40 AM EDT Pharmacokinetic Consult - Therapeutic Drug Monitoring HPI/Hospital Course: Eber Lowe is a 70 y.o. male admitted for Prostate CA ([facility]). Pharmacy was consulted for management of vancomycin therapy for pneumonia. Vancomycin intermittent dosing was initiated due to impaired renal function. Renal Function: Serum creatinine: 2.36 mg/dL (H) 06/14/25 0041 Estimated creatinine clearance: 35.4 mL/min (A) A/P: Recommend vancomycin 1750 mg (~15 mg/kg) x1 dose now. Given renal function, will continue intermittent dosing and check random level on 06/14 to assess appropriateness for redosing (<20 mcg/mL). Would suggest obtaining CBC, BMP at least 2-3x weekly while admitted to assess renal function (SCr/BUN/UOP). Will continue to follow cultures and deescalate as able. Pharmacist will continue to monitor therapy with primary service. Thank you, Saarh Bob, TorD OR [facility] Available via [employer] * Care Plan - Belkys Dowell RN - 06/14/2025 10:37 AM EDT Problem: Adult Inpatient Plan of Care Goal: Plan of Care Review Outcome: Ongoing, Progressing Flowsheets (Taken 06/14/20251032) Progress: no change Plan of Care Reviewed With: spouse Goal: Patient-Specific Goal (Individualized) Outcome: Ongoing, Progressing Goal: Absence of Hospital-Acquired Illness or Injury Outcome: Ongoing, Progressing Intervention: Identify and Manage Fall Risk Flowsheets (Taken 06/14/2025 0740) Safety Promotion/Fall Prevention: activity supervised fall prevention program maintained lighting adjusted room organization consistent safety round/check completed toileting scheduled Goal: Optimal Comfort and Wellbeing Outcome: Ongoing, Progressing Intervention: Monitor Pain and Promote Comfort Flowsheets (Taken 06/14/20251032) Pain Management Interventions: pillow support provided Goal: Readiness for Transition of Care Outcome: Ongoing, Progressing Intervention: Mutually Develop Transition Plan Flowsheets (Taken 06/14/20251032) Patient/Family Anticipates Transition to: home Problem: Infection Goal: Absence of Infection Signs and Symptoms Outcome: Ongoing, Progressing Intervention: Prevent or Manage Infection Flowsheets (Taken 06/14/2025 0740) Isolation Precautions: precautions maintained Problem: Mechanical Ventilation Invasive Goal: Effective Communication Outcome: Ongoing, Progressing Intervention: Ensure Effective Communication Flowsheets (Taken 06/14/20251032) Trust Relationship/Rapport: care explained Goal: Optimal Device Function Outcome: Ongoing, Progressing Intervention: Optimize Device Care and Function Flowsheets (Taken 06/14/2025 0740) Oral Care: mouth suctioned Goal: Mechanical Ventilation Liberation Outcome: Ongoing, Progressing Intervention: Promote Extubation and Mechanical Ventilation Liberation Flowsheets (Taken 06/14/20251032) Sleep/Rest Enhancement: relaxation techniques promoted Medication Review/Management: medications reviewed Goal: Optimal Nutrition Delivery Outcome: Ongoing, Progressing Intervention: Optimize Nutrition Delivery Flowsheets (Taken 06/14/2025 1033) Nutrition Support Management: weight trending reviewed Goal: Absence of Device-Related Skin and Tissue Injury Outcome: Ongoing, Progressing Intervention: Maintain Skin and Tissue Health Flowsheets (Taken 06/14/20251032) Device Skin Pressure Protection: absorbent pad utilized/changed Goal: Absence of Ventilator-Induced Lung Injury Outcome: Ongoing, Progressing Intervention: Prevent Ventilator-Associated Pneumonia Flowsheets Taken 06/14/2025 0800 Head of Bed (HOB) Positioning: HOB at 30-45 degrees Taken 06/14/2025 0740 Oral Care: mouth suctioned Problem: Skin Injury Risk Increased Goal: Skin Health and Integrity Outcome: Ongoing, Progressing Problem: Fall Injury Risk Goal: Absence of Fall and Fall-Related Injury Outcome: Ongoing, Progressing Intervention: Identify and Manage Contributors Flowsheets (Taken 06/14/2025 1033) Medication Review/Management: medications reviewed Intervention: Promote Injury-Free Environment Flowsheets (Taken 06/14/2025 0740) Safety Promotion/Fall Prevention: activity supervised fall prevention program maintained lighting adjusted room organization consistent safety round/check completed toileting scheduled Problem: Restraint, Nonviolent Goal: Absence of Harm or Injury Outcome: Ongoing, Progressing Intervention: Protect Dignity, Rights and Personal Wellbeing Flowsheets (Taken 06/14/2025 1033) Trust Relationship/Rapport: care explained Intervention: Protect Skin and Joint Integrity Flowsheets Taken 06/14/2025 1033 Skin Protection: silicone foam dressing in place incontinence pads utilized Taken 06/14/2025 1000 Body Position: right turned foot of bed elevated heels elevated Taken 06/14/2025 0800 Range of Motion: active ROM (range of motion) encouraged ROM (range of motion) performed * Assessment & Plan Note - Corry Doss APRN, DNP - 06/14/2025 9:59 AM EDTAssociated Problem(s): Prostate CA (CMS/HCC) (Resolved 07/31/2025) 06/12: robot-assisted radical prostatectomy, complicated by severed umbilical vein, 1.3L blood loss Management per primary * Assessment & Plan Note - Corry Doss APRN, DNP - 06/14/2025 9:59 AM EDTAssociated Problem(s): Severe obesity (BMI 35.0-39.9) with comorbidity (CMS/HCC) Complicates all aspects of care. * Assessment & Plan Note - Corry Doss APRN, DNP - 06/14/2025 9:59 AM EDTAssociated Problem(s): On mechanically assisted ventilation (CMS/HCC) (Resolved 06/18/2025) Intubated for procedure Increased FiO2 overnight, likely r/t increased PEEP and Shunt PEEP decreased, maintain at 5 Wean FiO2 for SpO2 >92% Continue aggressive pulm secretion mobilization Continue chlorhexidine per vent bundle PST as tolerated PRN CXR, blood gasses and nebs * Assessment & Plan Note - Corry Doss APRN, DNP - 06/14/2025 9:59 AM EDTAssociated Problem(s): Anemia Lab Results Component Value Date HGB 12.5 (L) 06/12/2025 , Lab Results Component Value Date HCT 36.2 (L) 06/12/2025 Stable Will continue to monitor Transfuse as appropriate for Hgb>8 Iron, Folate, B12 as appropriate * Assessment & Plan Note - Corry Doss APRN, DNP - 06/14/2025 9:59 AM EDTAssociated Problem(s): Hyperlipidemia Hold statin until appropriate to restart * Assessment & Plan Note - Corry Doss APRN, DNP - 06/14/2025 9:59 AM EDTAssociated Problem(s): Leukocytosis WBC Count (10*3/uL) Date/Time Value 06/12/20252126 11.67 (H) Tmax 100*F Multifactorial etiology in setting of recent surgery Pancultures pending; Procal 1.99 Start empiric Vanc/Zosyn Continue to follow * Assessment & Plan Note - Corry Doss APRN, DNP - 06/14/2025 9:59 AM EDTAssociated Problem(s): Cirrhosis of liver (CMS/HCC) In setting of AUD MELD score MELD 3.0: 16 at 03/28/2025 6:34 AM MELD-Na: 16 at 03/28/2025 6:34 AM Monitor liver function with daily labs * Assessment & Plan Note - Corry Doss APRN, DNP - 06/14/2025 9:59 AM EDTAssociated Problem(s): Hyperbilirubinemia T bili 3.7 In setting of AUD related cirrhosis Monitor with daily labs * Assessment & Plan Note - Corry Doss APRN, DNP - 06/14/2025 9:59 AM EDTAssociated Problem(s): Esophageal varices EGD 08/13: gr1 ev; moderate PHG no focal liver lesion Takes Coreg daily Restart home medication when appropriate * Assessment & Plan Note - Corry Doss APRN, DNP - 06/14/2025 9:59 AM EDTAssociated Problem(s): Renal calculi Resume home medications when appropriate Monitor kidney function with daily labs * Assessment & Plan Note - Corry Doss APRN, DNP - 06/14/2025 9:59 AM EDTAssociated Problem(s): Hypertension Resume home medications as appropriate * Assessment & Plan Note - Corry Doss APRN, DNP - 06/14/2025 9:59 AM EDTAssociated Problem(s): Alcohol use disorder 03/28: Reports he is abstinent for 3-4months, then resumes occasional alcohol around 2-3 glasses of wine a few times a week to 2 shots of bourbon a few times a week, last drink about a week ago. Monitor liver function with daily labs -CIWA, -Thiamine/Folate -PETH pending * Assessment & Plan Note - Corry Doss APRN, DNP - 06/14/2025 9:59 AM EDTAssociated Problem(s): SCC (squamous cell carcinoma), leg, left Skin biopsy in March 2025 confirmed SCC of left leg Continue to monitor * Assessment & Plan Note - Corry Doss APRN, DNP - 06/14/2025 9:59 AM EDTAssociated Problem(s): Electrolyte abnormality Replace per ICU sliding scale protocol. * Assessment & Plan Note - Corry Doss APRN, DNP - 06/14/2025 9:59 AM EDTAssociated Problem(s): Hypotension -Monitor arterial pressure -Norepi for MAP>65 -Transfuse as needed. * Assessment & Plan Note - Corry Doss APRN, DNP - 06/14/2025 9:59 AM EDTAssociated Problem(s): Hypocalcemia (Resolved 06/18/2025) -Monitor daily labs, -ICU electrolyte replacement protocol * Progress Notes - Corry Doss APRN, DNP - 06/14/2025 9:53 AM EDT Associated Order(s): Critical Care Post-Procedure Diagnose(s): Prostate CA 06/14/25 Eber Lowe is a 70 y.o. male who presents with Prostate CA (CMS/HCC) Past 24 hours: Mr. Lowe had increased oxygen requirements overnight, otherwise no acute changes. He remains hemodynamically stable on mechanical ventilation. FiO2 able to be weaned after decreasing PEEP, likely some component of shunting. Pancultures sent. Will continue to decrease FiO2 as able. GCS: [place] Coma Scale Score: 10 Review of Systems Unable to perform ROS: Intubated Vital signs: Vitals: 06/14/25 0824 BP: Pulse: 109 Resp: 18 Temp: SpO2: 94% Intake/Output Summary (Last 24 hours) at 06/14/2025 0953 Last data filed at 06/14/2025 0600 Gross per 24 hour Intake 4852.6 ml Output 1050 ml Net 3802.6 ml Physical Exam: Physical Exam Vitals and nursing note reviewed. Constitutional: Appearance: Normal appearance. He is overweight. Interventions: He is sedated, intubated and restrained. HENT: Head: Normocephalic and atraumatic. Nose: Nose normal. Comments: DHT in place Mouth/Throat: Mouth: Mucous membranes are moist. Eyes: Extraocular Movements: Extraocular movements intact. Conjunctiva/sclera: Conjunctivae normal. Pupils: Pupils are equal, round, and reactive to light. Cardiovascular: Rate and Rhythm: Regular rhythm. Tachycardia present. Pulses: Normal pulses. Heart sounds: Normal heart sounds. Pulmonary: Effort: He is intubated. Breath sounds: Normal air entry. Decreased breath sounds present. Abdominal: General: There is distension. Tenderness: There is no abdominal tenderness. There is no guarding. Comments: Abd firm to palpation Genitourinary: Comments: FC w/ CYU Musculoskeletal: General: Normal range of motion. Right lower leg: No edema. Left lower leg: No edema. Skin: General: Skin is warm and dry. Capillary Refill: Capillary refill takes less than 2 seconds. Neurological: Mental Status: He is lethargic. GCS: GCS eye subscore is 4. GCS verbal subscore is 1. GCS motor subscore is 6. Labs in last 18 hours: CBC WBC 21.40 (H) Hb 12.4 (L) Plt 86 (L) Hct 36.0 (L) ANC ?? INR ??, PTT ??, Anti-Xa ?? BMP Na 141 Cl 107 BUN 41 (H) Glu 144 (H) K 4.8 Co2 23 Cr 2.36 (H) Ca 7.9 (L) iCa 4.3 (L) Mg 2.4, Phos 6.6 (H) Lactate 2.1 (H) LFT AST ?? AlkPhos ?? T Prot ?? ALK ?? Bili ?? Alb ?? D.Bili ?? Imaging if available: XR Abdomen 1 View Narrative: CLINICAL INDICATION: Ileus TECHNIQUE: XR ABDOMEN 1 VIEW COMPARISON: CT abdomen pelvis April 03, 2020 FINDINGS: The feeding tube terminates in a peripyloric location. Cholecystectomy clips. Nonobstructive bowel gas pattern. Impression: Peripyloric feeding tube CRITICAL RESULT: No. COMMUNICATION: Per this written report. Drafted by Quentin Oliva MD on 06/14/2025 8:40 AM Final report signed by Quentin Oliva MD on 06/14/2025 8:41 AM XR Chest 1 View Narrative: CLINICAL INDICATION: eval lung ocampo and OETT position TECHNIQUE: XR CHEST 1 VIEW COMPARISON: Chest radiograph 06/12/2025 FINDINGS: Endotracheal tube terminates 4.1 cm above the vincent. Tip of a feeding tube terminate in the stomach or first segment of the duodenum. Mildly reduced lung volumes. Left basilar opacities. The cardiomediastinal silhouette is within normal limits for size. No pneumothorax. No pleural effusion. No acute osseous abnormality. Impression: * Support hardware, as described. * Low lung volumes with left basilar opacities favored to reflect atelectasis. CRITICAL RESULT: No. COMMUNICATION: Per this written report. Drafted by Brian Thompson MD on 06/14/2025 4:29 AM Final report signed by Brian Thompson MD on 06/14/2025 4:30 AM Reviewed and agree with above. Assessment and Plan: This patient is critically ill. Assessment & Plan Prostate CA (CMS/HCC) Present on Admission: Yes 06/12: robot-assisted radical prostatectomy, complicated by severed umbilical vein, 1.3L blood loss Management per primary Severe obesity (BMI 35.0-39.9) with comorbidity (CMS/HCC) Present on Admission: Unknown Complicates all aspects of care. On mechanically assisted ventilation (CMS/HCC) Present on Admission: Not Applicable Intubated for procedure Increased FiO2 overnight, likely r/t increased PEEP and Shunt PEEP decreased, maintain at 5 Wean FiO2 for SpO2 >92% Continue aggressive pulm secretion mobilization Continue chlorhexidine per vent bundle PST as tolerated PRN CXR, blood gasses and nebs Anemia Present on Admission: No Lab Results Component Value Date HGB 12.5 (L) 06/12/2025 , Lab Results Component Value Date HCT 36.2 (L) 06/12/2025 Stable Will continue to monitor Transfuse as appropriate for Hgb>8 Iron, Folate, B12 as appropriate Hyperlipidemia Present on Admission: Yes Hold statin until appropriate to restart Leukocytosis Present on Admission: No WBC Count (10*3/uL) Date/Time Value 06/12/20252126 11.67 (H) Tmax 100*F Multifactorial etiology in setting of recent surgery Pancultures pending; Procal 1.99 Start empiric Vanc/Zosyn Continue to follow Cirrhosis of liver (CMS/HCC) Present on Admission: Yes In setting of AUD MELD score MELD 3.0: 16 at 03/28/2025 6:34 AM MELD-Na: 16 at 03/28/2025 6:34 AM Monitor liver function with daily labs Hyperbilirubinemia Present on Admission: Yes T bili 3.7 In setting of AUD related cirrhosis Monitor with daily labs Esophageal varices Present on Admission: Yes EGD 08/13: gr1 ev; moderate PHG no focal liver lesion Takes Coreg daily Restart home medication when appropriate Renal calculi Present on Admission: Yes Resume home medications when appropriate Monitor kidney function with daily labs Hypertension Present on Admission: Yes Resume home medications as appropriate Alcohol use disorder Present on Admission: Yes 03/28: Reports he is abstinent for 3-4months, then resumes occasional alcohol around 2-3 glasses of wine a few times a week to 2 shots of bourbon a few times a week, last drink about a week ago. Monitor liver function with daily labs -CIWA, -Thiamine/Folate -PETH pending SCC (squamous cell carcinoma), leg, left Present on Admission: Yes Skin biopsy in March 2025 confirmed SCC of left leg Continue to monitor Electrolyte abnormality Present on Admission: No Replace per ICU sliding scale protocol. Hypotension Present on Admission: Unknown -Monitor arterial pressure -Norepi for MAP>65 -Transfuse as needed. Hypocalcemia Present on Admission: Unknown -Monitor daily labs, -ICU electrolyte replacement protocol Feeding: NPO diet Analgesia: Pain Score: 0 Sedation: RASS RASS: Restless Level of Consciousness: Sedated Thromboembolic prophylaxis: Last Anticoag Admin heparin (porcine) injection 5,000 Units Given 5,000 Units at 06/12/25 1431 Frequency: Once No unadministered anticoagulant orders found. Head of bed: >30 Ulcer prophylaxis: Protonix Glucose control: GLU: 144 mg/dL (06/14 004) Spontaneous breathing trials: O2 Delivery Method: Mechanical ventilator Vent Mode: PRVC Invasive Vent Status (ETT, Trach Only): In use S VT: 500 mL Insp Time (sec): 1.1 sec Vent Mode: PRVC FiO2 (%): 75 % S RR: 16 S VT: 500 mL MAP (cm H2O): 9.2 Bowel regimen: Martinez Care Castile Wipes Used: Yes Invasive lines: Patient Lines/Drains/Airways Status Active Active LDAs Name Placement date Placement time Site Days Peripheral IV 06/12/25 Left Arm 06/12/25 1518 Arm 1 Peripheral IV 06/13/25 Left;Upper Arm 06/13/25 0414 Arm 1 Peripheral IV 06/13/25 Anterior;Distal;Right;Upper Arm 06/13/25 1045 Arm less than 1 Closed/Suction Drain 1 RUQ Bulb 10 Fr. 06/12/25 1855 RUQ 1 Urethral Catheter Double-lumen;Non-latex 20 Fr. 06/12/25 1832 -- 1 ETT ETT - single 8 mm 06/12/25 1450 Oral 1 Arterial Line 06/12/25 Right Radial 06/12/25 2125 Radial 1 Feeding Tube Gastric 10 Fr. Left nare 06/13/25 1438 Left nare less than 1 De-escalation: Continue routine ICU care Critical Care Performed by: Corry Doss APRN, DNP Authorized by: Corry Doss APRN, DNP Critical care provider statement: Critical care time (minutes): 42 Critical care time was exclusive of: Separately billable procedures and treating other patients Critical care was time spent personally by me on the following activities: Development of treatmentplan with patient or surrogate, discussions with consultants, discussions with primary provider, evaluation of patient's response to treatment, obtaining history from patient or surrogate, examination of patient, ordering and performing treatments and interventions, ordering and review of laboratory studies, ordering and review of radiographic studies, review of old charts and ventilator management Corry Doss APRN, DNP * Care Plan - Luisa Anne - 06/14/2025 7:49 AM EDT Problem: Mechanical Ventilation Invasive Goal: Optimal Device Function Outcome: Ongoing, Progressing * Clinician Note - Vonda Quiroz - 06/14/2025 7:00 AM EDT Occupational Therapy Attempt Patient Name: Eber Lowe Today's Date: 06/14/2025 Patient was attempted to be seen by occupational therapy 06/14/2025 for OT Evaluation however Patient intubated and sedated. Occupational therapy team will follow-up when medically appropriate. Written by Vonda Quiroz on 06/14/25 at 7:00 AM. * Clinician Note - Marlys Jang MD - 06/13/2025 8:31 PM EDT 06/13/25 Eber Lowe Asked by RN to review and reorder restraints. Chart reviewed and patient visualized. Patient has continued need for restraints. Order renewed. Marlys Jang MD * Care Plan - Oh Silvestre - 06/13/2025 8:00 PM EDT Problem: Mechanical Ventilation Invasive Goal: Effective Communication Outcome: Ongoing, Progressing Goal: Optimal Device Function Outcome: Ongoing, Progressing Goal: Mechanical Ventilation Liberation Outcome: Ongoing, Progressing Goal: Absence of Device-Related Skin and Tissue Injury Outcome: Ongoing, Progressing Goal: Absence of Ventilator-Induced Lung Injury Outcome: Ongoing, Progressing * Care Plan - Christine Quiroz - 06/13/2025 1:28 PM EDT Problem: Mechanical Ventilation Invasive Goal: Optimal Device Function Outcome: Ongoing, Progressing * Assessment & Plan Note - Roshan Haas APRN, DNP - 06/13/2025 12:03 PM EDT Associated Problem(s): Hypertension Resume home medications as appropriate * Assessment & Plan Note - Roshan Haas APRN, DNP - 06/13/2025 12:03 PM EDT Associated Problem(s): Alcohol use disorder 03/28: Reports he is abstinent for 3-4months, then resumes occasional alcohol around 2-3 glasses of wine a few times a week to 2 shots of bourbon a few times a week, last drink about a week ago. Monitor liver function with daily labs -CIWA, -Thiamine/Folate -PETH pending * Assessment & Plan Note - Roshan Haas APRN, DNP - 06/13/2025 12:03 PM EDT Associated Problem(s): Hypotension -Monitor arterial pressure -Norepi for MAP>65 -Transfuse as needed. * Assessment & Plan Note - Roshan Haas APRN, DNP - 06/13/2025 12:03 PM EDT Associated Problem(s): Hypocalcemia (Resolved 06/18/2025) -Monitor daily labs, -ICU electrolyte replacement protocol * Assessment & Plan Note - Roshan Haas APRN, DNP - 06/13/2025 10:49 AM EDT Associated Problem(s): Prostate CA (CMS/HCC) (Resolved 07/31/2025) 06/12: robot-assisted radical prostatectomy, complicated by severed umbilical vein, 1.3L blood loss Management per primary * Assessment & Plan Note - Roshan Haas APRN, DNP - 06/13/2025 10:49 AM EDT Associated Problem(s): Severe obesity (BMI 35.0-39.9) with comorbidity (CMS/HCC) Complicates all aspects of care. * Assessment & Plan Note - Roshan Haas APRN, DNP - 06/13/2025 10:49 AM EDT Associated Problem(s): On mechanically assisted ventilation (CMS/HCC) (Resolved 06/18/2025) Intubated for procedure Wean FiO2 for SpO2 >92% Continue aggressive pulm secretion mobilization Continue chlorhexidine per vent bundle PST as tolerated PRN CXR, blood gasses and nebs * Assessment & Plan Note - Roshan Haas APRN, DNP - 06/13/2025 10:49 AM EDT Associated Problem(s): Anemia Lab Results Component Value Date HGB 12.5 (L) 06/12/2025 , Lab Results Component Value Date HCT 36.2 (L) 06/12/2025 Stable Will continue to monitor Transfuse as appropriate for Hgb>8 Iron, Folate, B12 as appropriate * Assessment & Plan Note - Roshan Haas APRN, DNP - 06/13/2025 10:49 AM EDT Associated Problem(s): Hyperlipidemia Hold statin until appropriate to restart * Assessment & Plan Note - Roshan Haas APRN, DNP - 06/13/2025 10:49 AM EDT Associated Problem(s): Leukocytosis WBC Count (10*3/uL) Date/Time Value 06/12/20252126 11.67 (H) Multifactorial etiology in setting of recent surgery Trend for now, may require further evaluation in near future * Assessment & Plan Note - Roshan Haas APRN, DNP - 06/13/2025 10:49 AM EDT Associated Problem(s): Cirrhosis of liver (CMS/HCC) In setting of AUD MELD score MELD 3.0: 16 at 03/28/2025 6:34 AM MELD-Na: 16 at 03/28/2025 6:34 AM Monitor liver function with daily labs * Assessment & Plan Note - Roshan Haas APRN, DNP - 06/13/2025 10:49 AM EDT Associated Problem(s): Hyperbilirubinemia T bili 3.7 In setting of AUD related cirrhosis Monitor with daily labs * Assessment & Plan Note - Roshan Haas APRN, DNP - 06/13/2025 10:49 AM EDT Associated Problem(s): Esophageal varices EGD 08/13: gr1 ev; moderate PHG no focal liver lesion Takes Coreg daily Restart home medication when appropriate * Assessment & Plan Note - Roshan Haas APRN, DNP - 06/13/2025 10:49 AM EDT Associated Problem(s): Renal calculi Resume home medications when appropriate Monitor kidney function with daily labs * Assessment & Plan Note - Roshan Haas APRN, DNP - 06/13/2025 10:49 AM EDT Associated Problem(s): SCC (squamous cell carcinoma), leg, left Skin biopsy in March 2025 confirmed SCC of left leg Continue to monitor * Assessment & Plan Note - Roshan Haas APRN, DNP - 06/13/2025 10:49 AM EDT Associated Problem(s): Electrolyte abnormality Replace per ICU sliding scale protocol. * Progress Notes - Roshan Haas APRN, DNP - 06/13/2025 10:48 AM EDT Associated Order(s): Critical Care Post-Procedure Diagnose(s): Hypocalcemia; Hyperbilirubinemia; Prostate CA; Electrolyte abnormality;On mechanically assisted ventilation (CMS/HCC); Alcohol use disorder; Leukocytosis, unspecified type; Hypotension due to hypovolemia Critical Care Performed by: Roshan Haas APRN, DNP Authorized by: Roshan Haas APRN, DNP Critical care provider statement: Critical care time (minutes): 45 Critical care was time spent personally by me on the following activities: Development of treatmentplan with patient or surrogate, discussions with consultants, discussions with primary provider, evaluation of patient's response to treatment, examination of patient, obtaining history from patient or surrogate, ordering and performing treatments and interventions, ordering and review of laboratory studies, ordering and review of radiographic studies, ventilator management and review of old charts I assumed subsequent critical care for this patient from a provider in my division, on the same day: yes Comments: The patient is critically ill with: Post operative anemia, need for mechanical ventilation, Leukocytosis, hypotension, electrolyte derangement. They require complex decision making. The patient was seen on rounds with critical care physician, Dr. Floyd and they are in agreement with the plan of care. Pharmacy, respiratory and nursing services were present on rounds. 06/13/25 Eber Lowe HPI Eber Lowe is a 70 y.o. male who presents with Prostate CA (CMS/HCC). If applicable, patient is s/p Procedure(s) and Anesthesia Type: * PROSTATECTOMY, RADICAL, ROBOT-ASSISTED - General. Patient is 1 Day Post-Op with Urology. Past 24 hours: PM: robot-assisted radical prostatectomy complicated by intra-op laceration of umbilical vein. 1.3Lof blood loss. 2U PRBC, 3.6L crystal intraoperatively. Consulted for vent management and resuscitation. 500 ml bolus for oligiuria AM: 40mg Lasix IV, replace Ca+, Norepi gtt, Wean to extubate if able, currently 65% fio2, Peep 8, CIWA, Thiamine/Folate, DHT for meds, 500ml bolus. Edited by: Roshan Haas APRN, DNP at 06/13/2025 1202 Lines/Drains/Tubes: Patient Lines/Drains/Airways Status Active Active LDAs Name Placement date Placement time Site Days Peripheral IV 06/12/25 Left Arm 06/12/25 1518 Arm less than 1 Peripheral IV 06/12/25 Right External Jugular 06/12/25 1854 External Jugular less than 1 Peripheral IV 06/13/25 Left;Upper Arm 06/13/25 0414 Arm less than 1 Closed/Suction Drain 1 RUQ Bulb 10 Fr. 06/12/25 1855 RUQ less than 1 Urethral Catheter Double-lumen;Non-latex 20 Fr. 06/12/25 1832 -- less than 1 ETT ETT - single 8 mm 06/12/25 1450 Oral less than 1 Arterial Line 06/12/25 Right Radial 06/12/25 2125 Radial less than 1 GCS: [place] Coma Scale Score: 10 Review of Systems 14 point ROS reviewed and otherwise negative or unobtainable except as noted above or in HPI. Vital signs: Vitals: 06/13/25 0910 BP: Pulse: 100 Resp: 19 Temp: SpO2: 93% Intake/Output Summary (Last 24 hours) at 06/13/2025 1202 Last data filed at 06/13/2025 1000 Gross per 24 hour Intake 6001 ml Output 2504 ml Net 3497 ml Physical Exam: Sedation was held for the purposes of examination. Physical Exam Vitals and nursing note reviewed. Constitutional: General: He is not in acute distress. Appearance: Normal appearance. He is well-developed and well-groomed. He is obese. He is not ill-appearing. Interventions: He is sedated and intubated. HENT: Head: Normocephalic and atraumatic. Right Ear: External ear normal. Left Ear: External ear normal. Nose: Nose normal. Mouth/Throat: Lips: [place]. Mouth: Mucous membranes are moist. Pharynx: Oropharynx is clear. Eyes: General: Gaze aligned appropriately. Extraocular Movements: Extraocular movements intact. Conjunctiva/sclera: Conjunctivae normal. Pupils: Pupils are equal, round, and reactive to light. Neck: Vascular: No JVD. Cardiovascular: Rate and Rhythm: Normal rate and regular rhythm. Heart sounds: Normal heart sounds. Pulmonary: Effort: Pulmonary effort is normal. He is intubated. Breath sounds: Normal breath sounds. Abdominal: General: Bowel sounds are normal. There is no distension. Palpations: Abdomen is soft. Tenderness: There is no abdominal tenderness. There is no guarding. Comments: Surgical incision/drainage bulb Musculoskeletal: General: Normal range of motion. Cervical back: Neck supple. Right lower leg: No edema. Left lower leg: No edema. Skin: General: Skin is warm and dry. Capillary Refill: Capillary refill takes less than 2 seconds. Coloration: Skin is not pale. Neurological: General: No focal deficit present. Mental Status: He is alert, oriented to person, place, and time and easily aroused. Results Review {Vanishing Link Review Results :[id number] I have reviewed the latest lab and imaging results. Assessment and Plan: This patient is critically ill. Assessment & Plan Prostate CA (CMS/HCC) Present on Admission: Yes 06/12: robot-assisted radical prostatectomy, complicated by severed umbilical vein, 1.3L blood loss Management per primary Severe obesity (BMI 35.0-39.9) with comorbidity (CMS/HCC) Present on Admission: Unknown Complicates all aspects of care. On mechanically assisted ventilation (CMS/HCC) Present on Admission: Not Applicable Intubated for procedure Wean FiO2 for SpO2 >92% Continue aggressive pulm secretion mobilization Continue chlorhexidine per vent bundle PST as tolerated PRN CXR, blood gasses and nebs Anemia Present on Admission: No Lab Results Component Value Date HGB 12.5 (L) 06/12/2025 , Lab Results Component Value Date HCT 36.2 (L) 06/12/2025 Stable Will continue to monitor Transfuse as appropriate for Hgb>8 Iron, Folate, B12 as appropriate Hyperlipidemia Present on Admission: Yes Hold statin until appropriate to restart Leukocytosis Present on Admission: No WBC Count (10*3/uL) Date/Time Value 06/12/2025 2127 11.67 (H) Multifactorial etiology in setting of recent surgery Trend for now, may require further evaluation in near future Cirrhosis of liver (CMS/HCC) Present on Admission: Yes In setting of AUD MELD score MELD 3.0: 16 at 03/28/2025 6:34 AM MELD-Na: 16 at 03/28/2025 6:34 AM Monitor liver function with daily labs Hyperbilirubinemia Present on Admission: Yes T bili 3.7 In setting of AUD related cirrhosis Monitor with daily labs Esophageal varices Present on Admission: Yes EGD 08/13: gr1 ev; moderate PHG no focal liver lesion Takes Coreg daily Restart home medication when appropriate Renal calculi Present on Admission: Yes Resume home medications when appropriate Monitor kidney function with daily labs Hypertension Present on Admission: Yes Resume home medications as appropriate Alcohol use disorder Present on Admission: Yes 03/28: Reports he is abstinent for 3-4months, then resumes occasional alcohol around 2-3 glasses of wine a few times a week to 2 shots of bourbon a few times a week, last drink about a week ago. Monitor liver function with daily labs -CIWA, -Thiamine/Folate -PETH pending SCC (squamous cell carcinoma), leg, left Present on Admission: Yes Skin biopsy in March 2025 confirmed SCC of left leg Continue to monitor Electrolyte abnormality Present on Admission: No Replace per ICU sliding scale protocol. Hypotension Present on Admission: Unknown -Monitor arterial pressure -Norepi for MAP>65 -Transfuse as needed. Hypocalcemia Present on Admission: Unknown -Monitor daily labs, -ICU electrolyte replacement protocol Roshan Haas APRN, DNP * Consults - Corry Baum RD - 06/13/2025 10:25 AM EDT Adult Nutrition Evaluation Note Eber Lowe 70 y.o. male CSN: [id number] Room/Bed 239/239A Nutrition evaluation type: assessment Reason for evaluation: [facility] course: 70 y.o male admitted with prostate cancer. OR 06/12 for robot assisted laparotomy prostatectomy with bilateral pelvic lymph node dissection requiring ex-lap. Past medical/ surgical history: Past Medical History[1] Surgical History[2] Social history: Additional comments: Visited room and spoke to family. Propofol and levo running. 5-10# weight fluctuations. No diet restrictions at home. Trying to be healthier and having lower extremity swelling. Vitals and Basic Assessment: BP: 112/77 Temp: 36.7 ??C (98 ??F) Invasive Ventilator Initiated (ETT/Trach Only): Yes Oxygen Therapy: Supplemental oxygen O2 Delivery Method: Mechanical ventilator Sherri Coma Scale Score: 10 Hé[place] Pressure Risk Score: 26 Edema: Generalized, Right upper extremity, Left upper extremity, Right lower extremity, Left lower extremity Allergies: NKFA Medications: Current Scheduled Medications[3] Current Continuous Medications[4] Current PRN Medications[5] Norepinephrine: 0.02 - low risk Propofol: 9.81 ml/hr - 259 kcals Meds were reviewed: Yes Labs: BMP Na 143 Cl 109 (H) BUN 17 Glu 148 (H) K 4.1 Co2 22 Cr 1.06 Ca 8.5 (L) iCa 4.5 (L) Mg 1.5 (L), Phos 5.1 (H) Lactate 2.3 (H) No results found for: CHOL , TRIG , HDL , LDLCALC No results found for: HGBA1C Elevated lactate Monitor Phosphorus Anthropometrics: Height: 175.3 cm (5' 9 ) Weight: 109 kg (240 lb) BMI (Calculated): 35.43 Weight Evaluation: Obese-Class 2 (BMI 35-39.9) [place] Body Weight (kg): 72.7 Percent [place] Body Weight: 150 Adjusted Body Weight (kg): 82 Estimated Needs: Kcal/ K - 20 Kcal Provided: 1635 - 2180 Kcal Needs Based On: Current weight Gm Protein/ Kg : 1.5 - 2.0 Protein Provided: 109 - 145 Protein Needs Based On: [place] weight Metabolic Cart Study Results: Current Nutrition Intake: Diet Supplements: None Diet Order: NPO Diet Experience and Nutrition History: Diet Education Provided: Will monitor Pertinent home medications: Multivitamin, Metamucil, Vitamin E Nutrition Focused Physical Exam: Physical exam performed on (date): 06/13 Temples (muscles): None Clavicle (muscle): None Orbital (fat): Mild Triceps (fat): None Assessment of Malnutrition: Malnutrition Identified: No Nutrition Problem: Inadequate oral intake related to mechanical vent as evidenced by NPO diet. Status of Nutrition Diagnosis: New Nutrition Interventions and Recommendations: - TF Recs: Start when lactate 2.0 or under - Isosource 1.5 @ goal rate 55 ml/hr (1210 ml/day) provides 1815 kcal, 82g protein, 213g CHO, 18g fiber, 72g fat, 924 ml water and 121% RDIs vit/min. - Add 2 packets of protein powder TID - Provides: 2254 kcals and 118 gms protein - Can start at 20 ml/hr advance by 10 ml q 6 hours - Free water per team - Document intakes Nutrition Monitoring and Goals: - Tolerate >80% of goal - Monitor weight, labs, and elytes Acuity Level: [address] [1] Past Medical History: Diagnosis Date Cancer (CMS/HCC) january 26, 2025 Cirrhosis (CMS/HCC) 2021 History of methicillin resistant Staphylococcus aureus 2011 Hyperlipidemia Hypertension Kidney stone various Substance abuse alcohol [2] Past Surgical History: Procedure Laterality Date CHOLECYSTECTOMY 2009 lap KNEE ARTHROSCOPY W/ MENISCAL REPAIR OTHER SURGICAL HISTORY Lipoma resection UMBILICAL HERNIA REPAIR [3] folic acid, 1 mg, Oral, Daily ipratropium-albuterol, 3 mL, Nebulization, q6h RT lactated Ringer's, 500 mL, Intravenous, Once lidocaine, 1 patch, Apply externally, q24h methocarbamol, 750 mg, Oral, 4x daily mupirocin, 1 Application, Each Nostril, BID senna-docusate, 1 tablet, Oral, Nightly sodium chloride, 10 mL, Intravenous, q12h thiamine, 200 mg, Intravenous, q8h [4] lactated Ringer's, 84 mL/hr, Last Rate: 84 mL/hr (06/12/252238) norepinephrine, 0-0.4 mcg/kg/min, Last Rate: 0.02 mcg/kg/min (06/13/25 1200) propofol, 10-50 mcg/kg/min, Last Rate: 15 mcg/kg/min (06/13/25 1200) [5] PRN medications: diazePAM OR diazePAM OR diazePAM OR diazePAM OR diazePAM, HYDROmorphone OR HYDROmorphone, melatonin, ondansetron, [COMPLETED] Insert peripheral IV AND Saline lock IV AND sodium chloride AND sodium chloride * Clinician Note - Michelle Moon - 06/13/2025 9:10 AM EDT Occupational Therapy Attempt Patient Name: Eber Lowe Today's Date: 06/13/2025 Patient was attempted to be seen by occupational therapy 06/13/2025 for OT Evaluation however Patient intubated and sedated. Occupational therapy team will follow-up when medically appropriate. Written by Michelle Moon on 06/13/25 at 9:11 AM. * Progress Notes - Gregory Galicia MD - 06/13/2025 9:00 AM EDT [facility] Urology Inpatient Progress Note Primary Attending: Dyllan Paul MD Procedure(s): RALP with bilateral pelvic lymph node dissection requiring ex-lap 06/12/25 SUBJECTIVE: -The patient remains intubated and sedated in the ICU this morning. He failed his spontaneous breathing trial overnight this morning. At bedside, he is on pressure regulated volume control and his catheter was gently irrigated and replaced within the StatLock. His DANILO drain has sanguinous output andhe is in restraints but responsive. PHYSICAL EXAM: Temp: [36 ??C (96.8 ??F)-36.7 ??C (98 ??F)] 36.7 ??C (98 ??F) Heart Rate: [62-100] 99 Resp: [0-24] 17 BP: (86-137)/(61-83) 112/77 SpO2: [89 %-100 %] 92 % I O Shift I O 24Hrs LDAs I/O this shift: In: - Out: 25 [Urine:25] I/O last 3 completed shifts: In: 6001 (55.1 mL/kg) [I.V.:5301 (48.7 mL/kg); Blood:700] Out: 2454 (22.5 mL/kg) [Urine:409 (0.1 mL/kg/hr); Drains:745; Blood:1300] Weight: 108.9 kg Closed/Suction Drain 1 RUQ Bulb 10 Fr. (Active) Placement Date/Time: 06/12/25 1855 Inserted by: Dyllan Paul MD Hand Hygiene Completed: Yes Tube Number: 1 Location: RUQ Drain Tube Type: Bulb Size (Fr.): 10 Fr. Drain [place] Size (mL): 100 mL Urethral Catheter Double-lumen;Non-latex 20 Fr. (Active) Placement Date/Time: 06/12/251831 Inserted by: ST Denis, under Dr. Paul's supervision Hand Hygiene Completed: Yes Catheter Type: Double-lumen;Non-latex Tube Size (Fr.): 20 Fr. Difficult Placement: No Number Of Attempts: 1 Urine Re... GEN: Hemodynamically stable HEENT: NCAT RESP: Equal bilateral chest rise, intubated CV: Regular rate, appears well perfused, A line in place ABD: incisions clean dry and intact with abdominal binder in place : catheter in place draining red tinged but transparent urine, catheter not in stat lock EXT: SCDs in place MSK: in restraints NEURO: No focal deficits, sedated PSYCH: unable to assess LABS: Results from last 7 days Lab Units 06/13/25 0026 WBC 10*3/uL 16.15* HEMOGLOBIN g/dL 13.1* HEMATOCRIT % 37.1* PLATELETS 10*3/uL 77* Results from last 7 days Lab Units 06/12/25 2127 SODIUM mmol/L 143 POTASSIUM mmol/L 4.1 CHLORIDE mmol/L 109* CO2 mmol/L 22 BUN mg/dL 17 CREATININE mg/dL 1.06 EGFR mL/min/1.73m*2 75.5 GLUCOSE mg/dL 148* CALCIUM mg/dL 8.5* IMAGING: All personally reviewed XR Chest 1 View Result Date: 06/12/2025 Impression: Endotracheal tube tip 2.5 cm above the vincent. Hypoventilation with likely perihilar and basilar atelectasis. CRITICAL RESULT: No. COMMUNICATION: Per this written report. Drafted by Irena Osborne MD on 06/12/2025 9:59 PM Final report signed by Irena Osborne MD on 06/12/2025 10:00 PM HOSPITAL PROBLEM LIST: Principal Problem: Prostate CA (CMS/HCC) Active Problems: Severe obesity (BMI 35.0-39.9) with comorbidity (CMS/HCC) On mechanically assisted ventilation (CMS/HCC) Anemia Hyperlipidemia Leukocytosis Cirrhosis of liver (CMS/HCC) Hyperbilirubinemia Esophageal varices Renal calculi Hypertension Alcohol use disorder SCC (squamous cell carcinoma), leg, left Electrolyte abnormality ASSESSMENT: Eber Lowe is a 70 y.o. male with hx of cirrhosis (MELD-Na 16), HLD, HTN, kidney stones, esophageal varices, AUD, and prostate cancer who is s/p RALP with bilateral pelvic lymph node dissection complicated by transection of a patent umbilical vein requiring transfusions and ex lap for repair on 06/12/25. After his case, he struggled coming off of the ventilator with appropriate satur ations and remained intubated in sedated with CCM consulted postoperatively for co management. He failed his SBT this AM and remains intubated and sedated this morning. His catheter was gently irrigated and replaced into his stat lock. His DANILO drain has sanguinous output but is slightly improved compared to last night. He received a 500 ml bolus overnight. PLAN: -wean off vent as able per ICU team -continue DANILO drain and martinez catheter (please ensure it is secured on statlock) -NPO + mIVF while intubated and sedated -continue A line to closely monitor hemodynamics, appreciate CCM with resuscitation postoperatively -daily AM labs -agree with abdominal binder -[facility] -urology will closely follow Gregory Galicia MD Cosigned by Dyllan Paul MD at 06/15/2025 10:37 AM EDT Associated attestation - Dyllan Paul MD - 06/15/2025 10:37 AM EDT I saw and evaluated the patient with the resident/fellow. I discussed the case with the resident/fellow and agree with the findings and plan as documented. * Clinician Note - Paul Oneil - 06/13/2025 8:58 AM EDT Physical Therapy Attempt Patient Name: Eber Lowe Today's Date: 06/13/2025 Patient was attempted to be seen by physical therapy 06/13/2025 for PT Evaluation however Patient intubated and sedated. (FIO2 70%). Physical therapy team will follow-up when medically appropriate. Written by Paul Oneil on 06/13/25 at 8:58 AM. * Progress Notes - Sheryl Huerta RN - 06/13/2025 8:27 AM EDT Patient is intubated and sedated, CM will return to initiate IA/SDOH. In??s KELLY Mistry, airborne operations manager * Procedures - Tati Pedroza RN - 06/13/2025 4:14 AM EDTAssociated Order(s): Insert peripheral IV Insert peripheral IV Performed by: Tati Pedroza, RN Authorized by: Dyllan Paul MD Hand hygiene: Hand hygiene performed prior to insertion Inserted using aseptic techniques: Yes Preparation: Skin prepped with chg Orientation: Left and upper Location: Arm Catheter placed: Peripheral IV Catheter size: 20g/2.00in Line Technique: Ultrasound Guidance Number of attempts: 1 IV flushes: Without difficulty and positive blood return noted and IV luer locked Patient tolerance: Patient tolerated the procedure well and there were no complications Patient comfort measures used: Distraction and position of comfort IV site covered with: Transparent semipermeable dressing Education provided to: Patient Comments: All pertinent images were uploaded to PACS. * Care Plan - Jimi Flanagan RN - 06/13/2025 2:20 AM EDT Problem: Adult Inpatient Plan of Care Goal: Plan of Care Review Outcome: Ongoing, Progressing Flowsheets (Taken 06/12/20252214) Progress: improving Plan of Care Reviewed With: patient spouse Goal: Patient-Specific Goal (Individualized) Outcome: Ongoing, Progressing Goal: Absence of Hospital-Acquired Illness or Injury Outcome: Ongoing, Progressing Intervention: Identify and Manage Fall Risk Flowsheets (Taken 06/12/20252214) Safety Promotion/Fall Prevention: activity supervised clutter-free environment maintained fall prevention program maintained lighting adjusted nonskid shoes/slippers when out of bed safety round/check completed room organization consistent Intervention: Prevent Infection Flowsheets (Taken 06/12/20252214) Infection Prevention: hand hygiene promoted single patient room provided visitors restricted/screened rest/sleep promoted personal protective equipment utilized Goal: Optimal Comfort and Wellbeing Outcome: Ongoing, Progressing Intervention: Monitor Pain and Promote Comfort Flowsheets (Taken 06/12/20252214) Pain Management Interventions: pain management plan reviewed with patient/caregiver Intervention: Provide Person-Centered Care Flowsheets (Taken 06/12/20252214) Trust Relationship/Rapport: care explained choices provided questions encouraged questions answered Goal: Readiness for Transition of Care Outcome: Ongoing, Progressing Intervention: Mutually Develop Transition Plan Flowsheets (Taken 06/12/20252214) Readmission Within the Last 30 Days: no previous admission in last 30 days Problem: Infection Goal: Absence of Infection Signs and Symptoms Outcome: Ongoing, Progressing Intervention: Prevent or Manage Infection Flowsheets (Taken 06/12/20252214) Fever Reduction/Comfort Measures: lightweight bedding lightweight clothing fluid intake increased Problem: Mechanical Ventilation Invasive Goal: Effective Communication Outcome: Ongoing, Progressing Intervention: Ensure Effective Communication Flowsheets (Taken 06/12/20252214) Trust Relationship/Rapport: care explained choices provided questions encouraged questions answered Diversional Activities: television Communication Enhancement Strategies: call light answered in person family/caregiver assisted with communication healthcare instructions adapted one-step directions provided Goal: Optimal Device Function Outcome: Ongoing, Progressing Intervention: Optimize Device Care and Function Flowsheets (Taken 06/12/20252214) Airway/Ventilation Management: airway patency maintained Airway Safety Measures: mask valve resuscitator at bedside Goal: Mechanical Ventilation Liberation Outcome: Ongoing, Progressing Intervention: Promote Extubation and Mechanical Ventilation Liberation Flowsheets (Taken 06/12/20252214) Environmental Support: calm environment promoted rooming-in facilitated Sleep/Rest Enhancement: awakenings minimized family presence promoted consistent schedule promoted regular sleep/rest pattern promoted relaxation techniques promoted Medication Review/Management: medications reviewed Goal: Optimal Nutrition Delivery Outcome: Ongoing, Progressing Goal: Absence of Device-Related Skin and Tissue Injury Outcome: Ongoing, Progressing Intervention: Maintain Skin and Tissue Health Flowsheets (Taken 06/12/20252214) Device Skin Pressure Protection: absorbent pad utilized/changed Goal: Absence of Ventilator-Induced Lung Injury Outcome: Ongoing, Progressing Problem: Skin Injury Risk Increased Goal: Skin Health and Integrity Outcome: Ongoing, Progressing * Assessment & Plan Note - Raymond Katz APRN - 06/12/2025 10:29 PM EDT Associated Problem(s): Alcohol use disorder 03/28: Reports he is abstinent for 3-4months, then resumes occasional alcohol around 2-3 glasses of wine a few times a week to 2 shots of bourbon a few times a week, last drink about a week ago. Monitor liver function with daily labs * Assessment & Plan Note - Raymond Katz APRN - 06/12/2025 10:29 PM EDT Associated Problem(s): SCC (squamous cell carcinoma), leg, left Skin biopsy in March 2025 confirmed SCC of left leg Continue to monitor * Assessment & Plan Note - Raymond Katz APRN - 06/12/2025 10:29 PM EDT Associated Problem(s): Electrolyte abnormality Replace per ICU sliding scale protocol. * Assessment & Plan Note - Raymond Katz APRN - 06/12/2025 10:29 PM EDT Associated Problem(s): Severe obesity (BMI 35.0-39.9) with comorbidity (CMS/HCC) Complicates all aspects of care. * Assessment & Plan Note - Raymond Katz APRN - 06/12/2025 10:29 PM EDT Associated Problem(s): Prostate CA (CMS/HCC) (Resolved 07/31/2025) 06/12: robot-assisted radical prostatectomy, complicated by severed umbilical vein, 1.3L blood loss Management per primary * Assessment & Plan Note - Raymond Katz APRN - 06/12/2025 10:29 PM EDT Associated Problem(s): On mechanically assisted ventilation (CMS/[facility]) (Resolved 06/18/2025) Intubated for procedure Wean FiO2 for SpO2 >92% Continue aggressive pulm secretion mobilization Continue chlorhexidine per vent bundle PST as tolerated PRN CXR, blood gasses and nebs * Assessment & Plan Note - Raymond Katz APRN - 06/12/2025 10:29 PM EDT Associated Problem(s): Anemia Lab Results Component Value Date HGB 12.5 (L) 06/12/2025 , Lab Results Component Value Date HCT 36.2 (L) 06/12/2025 Stable Will continue to monitor Transfuse as appropriate for Hgb>8 Iron, Folate, B12 as appropriate * Assessment & Plan Note - Raymond Katz APRN - 06/12/2025 10:29 PM EDT Associated Problem(s): Hyperlipidemia Hold statin until appropriate to restart * Assessment & Plan Note - Raymond Katz APRN - 06/12/2025 10:29 PM EDT Associated Problem(s): Leukocytosis WBC Count (10*3/uL) Date/Time Value 06/12/20252126 11.67 (H) Multifactorial etiology in setting of recent surgery Trend for now, may require further evaluation in near future * Assessment & Plan Note - Raymond Katz APRN - 06/12/2025 10:29 PM EDT Associated Problem(s): Cirrhosis of liver (CMS/HCC) In setting of AUD MELD score MELD 3.0: 16 at 03/28/2025 6:34 AM MELD-Na: 16 at 03/28/2025 6:34 AM Monitor liver function with daily labs * Assessment & Plan Note - Raymond Katz APRN - 06/12/2025 10:29 PM EDT Associated Problem(s): Hyperbilirubinemia T bili 3.7 In setting of AUD related cirrhosis Monitor with daily labs * Assessment & Plan Note - Raymond Katz APRN - 06/12/2025 10:29 PM EDT Associated Problem(s): Esophageal varices EGD 08/13: gr1 ev; moderate PHG no focal liver lesion Takes Coreg daily Restart home medication when appropriate * Assessment & Plan Note - Raymond Katz APRN - 06/12/2025 10:29 PM EDT Associated Problem(s): Renal calculi Resume home medications when appropriate Monitor kidney function with daily labs * Assessment & Plan Note - Raymond Katz APRN - 06/12/2025 10:29 PM EDT Associated Problem(s): Hypertension Resume home medications as appropriate * H&P - Raymond Katz APRN - 06/12/2025 10:22 PM EDTAssociated Order(s): Critical Care Post-Procedure Diagnose(s): Prostate CA 06/12/25 Eber Lowe Consulted for critical care management by Urology / Dyllan Paul MD. HPI Eber Lowe is a 70 y.o. male who presents with Prostate CA (CMS/HCC).Patient is post-op day * Day of Surgery * with Urology. Past medical history significant for: HLD, cirrhosis (MELD-NA 16), hyperbilirubinemia, Esoph varices (),obesity, prostate cancer, renal calculi, MRSA (2012), HTN, AUD, SCC (leg) Intraoperative course was complicated by laceration of umbilical vein resulting in 1.3L of blood loss. Patient received 2U PRBC and 3.6L crystal intra-op. Patient had acute desaturation event at end of case when laid flat prior to transport to PACU. Patient seen immediately in PACU. GCS 4.6.1T off sedation. Bedside ECHO performed by anesthesia with no evidence of R heart strain. Normotensive, satting mid 90s on 100% FI02, NSR 70s. CCM consulted d/t desaturation event and for ongoing post operative resuscitation in setting of umbilical vein laceration. Lines/Drains/Tubes: . Active . Name Placement date Placement time Site Days Peripheral IV 06/12/25 Posterior;Right Hand 06/12/25 1315 Hand less than 1 Peripheral IV 06/12/25 Left Arm 06/12/25 1518 Arm less than 1 Peripheral IV 06/12/25 Right External Jugular 06/12/25 1854 External Jugular less than 1 Closed/Suction Drain 1 RUQ Bulb 10 Fr. 06/12/25 1855 RUQ less than 1 Urethral Catheter Double-lumen;Non-latex 20 Fr. 06/12/25 1832 -- less than 1 Arterial Line 06/12/25 Right Radial 06/12/25 2125 Radial less than 1 Last antibiotic: Patient recently received an antibiotic (last 12 hours) Showing orders from other encounters Date/Time Action Medication Dose 06/12/25 1917 Given ceFAZolin (Ancef) injection 2 g 06/12/25 1518 Given ceFAZolin (Ancef) injection 2 g Per the patient questionnaire: Patient answers are not available for this visit. Past Medical History: Active Ambulatory Problems Diagnosis Date Noted ??? No Active Ambulatory Problems Resolved Ambulatory Problems Diagnosis Date Noted ??? No Resolved Ambulatory Problems Past Medical History: Diagnosis Date ??? Cancer (CMS/HCC) january 26, 2025 ??? Cirrhosis (CMS/HCC) 2021 ??? History of methicillin resistant Staphylococcus aureus 2011 ??? Hyperlipidemia ??? Hypertension ??? Kidney stone various ??? Substance abuse alcohol Past Surgical History: Surgical History[1] Home Medications: Prior to Admission medications Medication Sig Start Date End Date Taking? Authorizing Provider atorvastatin (Lipitor) 10 MG tablet Take 1 tablet by mouth daily. 04/10/23 Yes Albert Salinas MD carvedilol (Coreg) 3.125 MG tablet Take 1 tablet by mouth 2 times a day. 03/28/25 06/12/25 Yes Virginia Campa MD furosemide (Lasix) 40 MG tablet Take 1 tablet by mouth daily. Yes Albert Salinas MD squndnjvvirn-cfgv-ozbosmvs-folic acid (Centrum) chewable tablet Chew 1 tablet daily. Yes Albert Salinas MD potassium chloride CR (Klor-Con) 10 MEQ ER tablet Take 1 tablet by mouth daily. Do not crush, chew,or split. Yes Alebrt Salinas MD clobetasol (Temovate) 0.05 % external solution as needed. 03/06/25 Albert Salinas MD DIPHENHYDRAMINE HCL, SLEEP, PO Take 16 mg by mouth at night if needed (sleep). Albert Salinas MD ketoconazole (NIZOral) 2 % cream as needed. Albert Salinas MD ketoconazole (NIZOral) 2 % shampoo 03/06/25 Albert Salinas MD Melatonin 5 MG tablet tablet Take 10 mg by mouth at night if needed for sleep. Patient not taking: Reported on 04/29/2025 Albert Salinas MD psyllium (Metamucil) 58.6 % powder Take 1 packet by mouth daily. Albert Salinas MD triamcinolone (Kenalog) 0.1 % ointment Apply 1 Application topically as needed. 03/26/25 Albert Salinas MD Vitamin E 450 MG (1000 UT) capsule Take 1,000 Units by mouth 1 (one) time each day. Albert Salinas MD Ascorbic Acid (VITAMIN C GUMMIE PO) Take 1 Chewable tablet by mouth 1 (one) time each day. Patient not taking: Reported on 04/29/2025 06/06/25 Albert Salinas MD lisinopril 20 MG tablet Take 20 mg by mouth 1 (one) time each day. Patient not taking: Reported on 04/29/2025 06/06/25 Albert Salinas MD mupirocin (Bactroban) 2 % ointment 03/26/25 06/06/25 lAbert Salinas MD Social History: Pt has reports that he has never smoked. He has never been exposed to tobacco smoke. He has never used smokeless tobacco. He reports current alcohol use. He reports that he does not use drugs. (details as available below) Social History Substance and Sexual Activity Alcohol Use Yes Comment: Currently social use. Social History Substance and Sexual Activity Drug Use Never Tobacco Use History[2] Reviewed and otherwise non-contributory. Family History: Family History[3] Reviewed and otherwise non-contributory. Allergies: Allergies[4] ROS: GCS: Sherri Coma Scale Score: 9 Review of Systems Unable to perform ROS: Intubated 14 point ROS reviewed and otherwise negative or unobtainable except as noted above or in HPI. Vital signs: Vitals: 06/12/252154 BP: Pulse: 76 Resp: 12 Temp: SpO2: 97% Intake/Output Summary (Last 24 hours) at 06/12/20252221 Last data filed at 06/12/20252120 Gross per 24 hour Intake 4300 ml Output 1550 ml Net 2750 ml Physical Exam: Physical Exam Constitutional: Appearance: He is well-developed. He is obese. He is ill-appearing. Interventions: He is sedated, intubated and restrained. HENT: Head: Normocephalic and atraumatic. Right Ear: External ear normal. Left Ear: External ear normal. Nose: Nose normal. Mouth/Throat: Lips: [place]. Mouth: Mucous membranes are moist. Pharynx: Oropharynx is clear. Comments: OETT Eyes: Conjunctiva/sclera: Conjunctivae normal. Pupils: Pupils are equal, round, and reactive to light. Neck: Vascular: No JVD. Cardiovascular: Rate and Rhythm: Normal rate and regular rhythm. Pulmonary: Effort: Pulmonary effort is normal. He is intubated. Breath sounds: Decreased breath sounds present. Abdominal: General: Bowel sounds are decreased. There is no distension. Palpations: Abdomen is soft. Tenderness: There is no abdominal tenderness. There is no guarding. Genitourinary: Comments: FC in place draining CYU Musculoskeletal: General: Normal range of motion. Cervical back: Neck supple. Right lower leg: Edema present. Left lower leg: Edema present. Skin: General: Skin is warm and dry. Coloration: Skin is not pale. Comments: DANILO X1, dark sanginous Incision C/D/I Neurological: General: No focal deficit present. GCS: GCS eye subscore is 4. GCS verbal subscore is 1. GCS motor subscore is 6. Comments: T off sedation Labs in last 18 hours: CBC WBC 11.67 (H) Hb 12.5 (L) Plt ?? Hct 36.2 (L) ANC ?? INR 1.8 (H), PTT 37 (H), Anti-Xa ?? BMP Na 143 Cl 109 (H) BUN 17 Glu 148 (H) K 4.1 Co2 22 Cr 1.06 Ca 8.5 (L) iCa ?? Mg 1.5 (L), Phos 5.1 (H) Lactate 2.4 (H) LFT AST 71 (H) AlkPhos 109 T Prot 4.2 (L) ALK 39 Bili 2.8 (H) Alb ?? D.Bili ?? Imaging as available: === 07/31/24 === MR OUTSIDE IMAGES === 04/03/25 === CT ABDOMEN PELVIS W AND WO IV CONTRAST - Narrative - CLINICAL INDICATION: Risk for hepatocellular carcinoma Liver [...] on this date and at this time, andas such, the same value may appear in [...] lytic nodule in L1, likely vertebral hemangioma. - Impression - Focal Hepatic Observations: Multiple small hypoattenuating nodules [...] risk for hepatocellular carcinoma. CT/MRI LI-RADS and US LI-RADS are consistent with and integrated into the [place] [employer] Diseases (AASLD) 2018 hepatocellular carcinoma (HCC) clinical practice guidance. LI-RADS criteria and documentation are available online at www.acr.org/Quality- Safety/Resources/LIRADS. This report utilizes LI-RADS version 2018 with [...] Quentin Oliva MD on 04/03/2025 9:01 AM === 06/12/25 === XR CHEST 1 VIEW - Narrative - CLINICAL INDICATION: Evaluate lung ocampo and tube placement TECHNIQUE: XR CHEST 1 VIEW COMPARISON: May 09, 2023. FINDINGS: Endotracheal tube tip 2.5 cm above the vincent. Low lung volumes. Perihilar and left basilar opacities. No pneumothorax. Enlarged cardiac silhouette may be projectional. - Impression - Endotracheal tube tip 2.5 cm above the vincent. Hypoventilation with likely perihilar and basilar atelectasis. CRITICAL RESULT: No. COMMUNICATION: Per this written report. Drafted by Irena Osborne MD on 06/12/2025 9:59 PM Final report signed by Irena Osborne MD on 06/12/2025 10:00 PM Reviewed and agree with above. Assessment and Plan: This patient is critically ill. Assessment & Plan Prostate CA (CMS/HCC) Present on Admission: Yes 06/12: robot-assisted radical prostatectomy, complicated by severed umbilical vein, 1.3L blood loss Management per primary Severe obesity (BMI 35.0-39.9) with comorbidity (CMS/HCC) Present on Admission: Unknown Complicates all aspects of care. On mechanically assisted ventilation (CMS/HCC) Present on Admission: Not Applicable Intubated for procedure Wean FiO2 for SpO2 >92% Continue aggressive pulm secretion mobilization Continue chlorhexidine per vent bundle PST as tolerated PRN CXR, blood gasses and nebs Anemia Present on Admission: No Lab Results Component Value Date HGB 12.5 (L) 06/12/2025 , Lab Results Component Value Date HCT 36.2 (L) 06/12/2025 Stable Will continue to monitor Transfuse as appropriate for Hgb>8 Iron, Folate, B12 as appropriate Hyperlipidemia Present on Admission: Yes Hold statin until appropriate to restart Leukocytosis Present on Admission: No WBC Count (10*3/uL) Date/Time Value 06/12/20252126 11.67 (H) Multifactorial etiology in setting of recent surgery Trend for now, may require further evaluation in near future Cirrhosis of liver (CMS/HCC) Present on Admission: Yes In setting of AUD MELD score MELD 3.0: 16 at 03/28/2025 6:34 AM MELD-Na: 16 at 03/28/2025 6:34 AM Monitor liver function with daily labs Hyperbilirubinemia Present on Admission: Yes T bili 3.7 In setting of AUD related cirrhosis Monitor with daily labs Esophageal varices Present on Admission: Yes EGD 08/13: gr1 ev; moderate PHG no focal liver lesion Takes Coreg daily Restart home medication when appropriate Renal calculi Present on Admission: Yes Resume home medications when appropriate Monitor kidney function with daily labs Hypertension Present on Admission: Yes Resume home medications as appropriate Alcohol use disorder Present on Admission: Yes 03/28: Reports he is abstinent for 3-4months, then resumes occasional alcohol around 2-3 glasses of wine a few times a week to 2 shots of bourbon a few times a week, last drink about a week ago. Monitor liver function with daily labs SCC (squamous cell carcinoma), leg, left Present on Admission: Yes Skin biopsy in March 2025 confirmed SCC of left leg Continue to monitor Electrolyte abnormality Present on Admission: No Replace per ICU sliding scale protocol. Feeding: NPO diet Analgesia: Pain Score: 0 Sedation: RASS RASS: Restless Thromboembolic prophylaxis: Last Anticoag Admin heparin (porcine) injection 5,000 Units Given 5,000 Units at 1431 Frequency: Once No unadministered anticoagulant orders found. Head of bed: >30 Ulcer prophylaxis: Pepcid Glucose control: GLU: 148 mg/dL (06/12 2127) Spontaneous breathing trials: Invasive Ventilator Initiated (ETT/Trach Only): Yes O2 Delivery Method: Mechanical ventilator Vent Mode: PRVC/AC Invasive Vent Status (ETT, Trach Only): In use S VT: 500 mL Insp Time (sec): 1 sec Vent Mode: PRVC/AC FiO2 (%): 100 % S RR: 16 S VT: 500 mL MAP (cm H2O): 12 Bowel regimen: Invasive lines: Patient Lines/Drains/Airways Status Active Active LDAs Name Placement date Placement time Site Days Peripheral IV 06/12/25 Posterior;Right Hand 06/12/25 1315 Hand less than 1 Peripheral IV 06/12/25 Left Arm 06/12/25 1518 Arm less than 1 Peripheral IV 06/12/25 Right External Jugular 06/12/25 1854 External Jugular less than 1 Closed/Suction Drain 1 RUQ Bulb 10 Fr. 06/12/25 1855 RUQ less than 1 Urethral Catheter Double-lumen;Non-latex 20 Fr. 06/12/25 1832 -- less than 1 ETT ETT - single 8 mm 06/12/25 1450 Oral less than 1 Arterial Line 06/12/25 Right Radial 06/12/25 2125 Radial less than 1 De-escalation: Continue routine ICU care Critical Care Performed by: Raymond Katz APRN Authorized by: Raymond Katz APRN Critical care provider statement: Critical care time (minutes): 90 Critical care time was exclusive of: Separately billable procedures and treating other patients Critical care was time spent personally by me on the following activities: Ordering and performing treatments and interventions, ordering and review of laboratory studies, ordering and review of radiographic studies, review of old charts, ventilator management, examination of patient, evaluation ofpatient's response to treatment, development of treatment plan with patient or surrogate and discussions with primary provider I assumed subsequent critical care for this patient from a provider in my division, on the same day: yes Raymond Katz APRN [1] Past Surgical History: Procedure Laterality Date ??? CHOLECYSTECTOMY 2010 lap ??? KNEE ARTHROSCOPY W/ MENISCAL REPAIR ??? OTHER SURGICAL HISTORY Lipoma resection ??? UMBILICAL HERNIA REPAIR [2] Social History Tobacco Use Smoking Status Never ??? Passive exposure: Never Smokeless Tobacco Never [3] Family History Problem Relation Name Age of Onset ??? Heart disease Mother ??? Anesthesia problems Neg Hx ??? Malig Hyperthermia Neg Hx [4] No Known Allergies * Care Plan - Sue Aly - 06/12/2025 9:59 PM EDT Problem: Mechanical Ventilation Invasive Goal: Optimal Device Function Outcome: Ongoing, Progressing Intervention: Optimize Device Care and Function Flowsheets (Taken 06/12/20252158) Airway/Ventilation Management: airway patency maintained oxygen therapy provided pulmonary hygiene promoted humidification applied positive pressure ventilation provided Airway Safety Measures: mask valve resuscitator at bedside manual resuscitator/mask at bedside oxygen flowmeter at bedside suction at bedside high-efficiency antimicrobial filters maintained * Anesthesia PACU Signout - Dyllan Wong DO - 06/12/2025 9:39 PM EDT Patient: Eber Lowe Anesthesia Type: general Vitals Value Taken Time BP 103/66 06/12/25 21:15 Temp 36.5 ??C (97.7 ??F) 06/12/25 21:06 Pulse 74 06/12/25 21:38 Resp 16 06/12/25 21:38 SpO2 96 % 06/12/25 21:38 Vitals shown include unfiled device data. Anesthesia PACU Signout Patient location during evaluation: ICU Patient participation: complete - patient participated Level of consciousness: awake and sedated Pain management: adequate (pain score 0-3) Airway patency: endotracheal device Hydration status: acceptable PONV: none Cardiovascular status: acceptable and hemodynamically stable Respiratory status: acceptable, ETT and ventilator Discharge Disposition: admit to inpatient unit Comments: Patient is s/p Procedure(s) and Anesthesia Type: * PROSTATECTOMY, RADICAL, ROBOT-ASSISTED - General. Patient remains HDS on Ventilator, neurologically appropriate, pain is controlled, and tolerating PO w/o N/V. Patient is appropriate for discharge from PACU to ICU for continued postop care. Cosigned by Ulises Sandoval MD at 06/13/2025 6:50 PM EDT Associated attestation - Ulises Sandoval MD - 06/13/2025 6:50 PM EDT Signature only. * Op Note - Dyllan Paul MD - 06/12/2025 3:20 PM EDT Operative Note Date: 06/12/25 Location: [place] [facility] Name: Eber Lowe, : 1955, Diagnoses: Pre-op Diagnosis Prostate CA (CMS/HCC) Post-op Diagnosis Prostate CA (CMS/HCC) Procedure(s): Robotic assisted laparoscopic radical prostatectomy Robotic assisted laparoscopic bilateral pelvic lymph node dissection Laparotomy with ligation of dilated umbilical veins Attending Surgeon(s): * Dyllan Paul - Primary Crossbow Maker(s): * Adam Earl MD - Resident - Assisting * Gregory Galicia MD - Resident - Assisting Anesthesia: General ASA: III Blood Administration: Blood Product Administration History Product Date Volume Status Transfuse RBC RBC 06/12/2025 350 mL Completed 06/12/252127 RBC 06/12/2025 350 mL Completed 06/12/252127 Estimated Blood Loss: 1300 mL Drains: Closed/Suction Drain 1 RUQ Bulb 10 Fr. (Active) Site Description Clean;Dry 06/15/25799 Dressing Status Clean;Dry;Intact 06/15/25799 Drainage Appearance Serosanguineous 06/15/25799 Status To bulb suction 06/15/25799 Output (mL) 120 mL 06/15/25 1000 Urethral Catheter Double-lumen;Non-latex 20 Fr. (Active) Site Assessment Clean;Skin intact 06/15/25799 CAUTI: Collection Container Standard drainage bag;System closed;Collection container below bladder and tubing free of kinks 06/15/25799 CAUTI: Securement Method Securing device (Describe) 06/15/25799 CAUTI: Specimen Collection Port Covered with Alcohol Cap Yes 06/15/25799 CAUTI: Urinary Catheter Necessity Yes, meets criteria 06/15/25799 CAUTI: Urinary Catheter Necessity Reasons Q1-2 hourly urine output of critically ill patient 06/15/25 0800 Output (mL) 125 mL 06/15/25 0800 [REMOVED] Urethral Catheter Double-lumen;Non-latex 18 Fr. (Removed) Specimen: Specimens ID Source Frozen? 1 Other (specify site) No Description: Prostate and seminal vesicles - fresh for permanent 2 Other (specify site) No Description: Bilateral pelvic lymph nodes - permanent Findings: Large prostate with transition zone extending around posterior and lateral bladder neck. Bladder neck preserved, watertight anastamosis Upon specimen extraction with traditional transverse incision, we were met with brisk venous bleeding, several hundred ml's in seconds. We held pressure until anesthesia had larger lines, blood available, then we did superior laparotomy and discovered massively dilated twin umbilical veins (1+cm) which were ligated with control of hemorrhage. Indications: Eber Lowe is an 70 y.o. male who is having surgery for Prostate CA ([facility]). Narrative: The patient is brought the operating room and identified by name. He is placed on table in supine position. After general endotracheal anesthesia he was placed in the dorsal lithotomy position all pressure points were padded and the abdomen and genitals were prepped and draped in the usual sterile fashion. We then performed time-out after all points were confirmed we placed an 18 Ethiopian catheter into the bladder and the bladder was drained we entered the abdomen through a small supraumbilical incision the Veress needle was used to introduce pneumoperitoneum with an appropriate water test and opening pressure of 5 we insufflated to a pressure of 15 and placed a robotic trocar we inspected the abdomen there were no was no evidence of intra-abdominal injury there were a few left-sided colonic adhesions but no other significant adhesions. We then placed our robotic ports with the robotic ports in the left lower quadrant left pararectus and right pararectus positions a 12 mm port in the right lower quadrant and a 5 mm port in the right upper quadrant. The domenico placed under vision the patient was placed in Trendelenburg position and then the robot was brought in and docked to the ports and instruments were introduced under vision. We began dissection by taking down the colonic adhesions sharply the bowel fell nicely out of the pelvis. We then took down the peritoneal opening lateral to the medial umbilical ligaments on each side we entered the prevesical space both right and left vas deferens were cauterized and divided. The iliac veins and obturator nerves were identified on both sides and then we left the midline structures intact anteriorly on the bladder. We cleaned off theendopelvic fascia and took the superficial dorsal vein with cautery. We then entered the endopelvicfascia lateral to the prostate the lateral aspect of the gland was mobilized. The bladder neck was demonstrated with the Martinez balloon and this indicated the rise in the balloon as it approached the bladder neck. We suspected the posterior extension of the prostate. We then ligated the dorsal vein with 0 Vicryl suture the attention was then directed to the bladder neck. Again using the Martinez balloon in the lateral aspect of the prostate we dissected out starting on the left side starting laterally we moved from lateral to medial the prostate tissue pushing up from behind was noted we had to take a sharp angle back towards the midline and a distal to preserve the bladder neck. This was done on both sides the as we continued our dissection we are able to identify the posterior fat plane laterally on both right and left sides and we worked from lateral to medial and then came up anteriorlyto further define the bladder neck. Did not appear to be intravesical push of the prostate but justan extension both laterally and posteriorly from the central zone of the prostate. We opened the anterior bladder neck and the posterior bladder neck was dissected out and divided as well we dissected along the posterior bladder neck back along the protrusion of prostate underneath the bladder and entered the posterior space. The vas deferens were identified in the posterior midline the vas deferens and seminal vesicles were dissected out. As we came around underneath the bladder again becausethe prostate size it was difficult to incise Denonvilliers fascia. We are able to do so and make limited progress to approximate the mid gland. I then came around the lateral pedicles elevated the seminal vesicles and posterior corner of the bladder and again we had to adjust our dissection planes accounting for the posterior extension of prostate. The nerve bundles had been displaced anterior and lateral. We are able to take down the pedicle with bipolar cautery and cold scissors and then worka bit more anteriorly and released the bundles laterally and stayed just within the medial portion of the neurovascular bundles and saved them down to the apex. This was done on both sides. We then divided the dorsal vein complex and dissected out the urethra the urethra was divided with an excellent stump noted. The apex of the prostate was then dissected out from slightly beneath the urethra. Care was taken to avoid the midline structures and they were divided sharply any remaining attachments to the rectum. We inspected the prostate all capsular surfaces appeared intact we inspected the inspected the pelvic floor and the rectum was intact and the majority of both bundles were intact bilaterally. Hemostasis was good we then directed our attention to the lymph node dissection the node package from the medial aspect of the iliac vein was dissected off of the iliac vein and then off the lateral pelvic sidewall we dissected distally to the pubic bone and then slightly over the pubic bone. The node packet was dissected back to the bifurcation of the vessels and then placed with the pros gonzalez. The left side node packet was taken in similar fashion again using the iliac vein the pubic bone distally sidewall laterally obturator nerve and vessels posteriorly and the bifurcation of the vessels proximally. No grossly suspicious nodes were noted. We then placed the prostate and the nodesand a Endo-Catch bag for later removal. We irrigated and aspirated the pelvis hemostasis was good we then on noticed some oozing from the dorsal vein which seemed to persist and additional 0 Vicryl suture was then placed to help control this with a Martinez catheter in place to make sure it could wellidentify the urethra. We then inspected the bladder neck and did not need reconstruction. We performed the urethrovesical anastomosis using a double-armed running 3-0 V lock suture the posterior wallcame together nicely under no tension. The anterior wall was then run as well with a new 20 Ethiopian catheter being placed into the bladder before complete closure. We tested the anastomosis by irrigating the bladder and everything appeared dry. We then did our final hemostasis inspection everything appeared dry. We then directed our attention to closure a Héctor- Yung drain was placed through thelateral port site and into the pelvis the drain was brought out the 5 mm right upper quadrant port secured to the skin with silk suture. The Brown-Kaz device was used to close the 12 mm port site in the right lower quadrant. The right pararectus port was removed under vision with no bleeding the 2 left-sided ports removed under vision as well. We then removed the midline port did notice some mild oozing in the port site we extended the incision laterally and prepared to move the specimen.And doing so once we had opened the transverse incision were preparing for extraction we noted brisk venous bleeding coming up from the transverse incision. We were not sure whether this was from on recognized venous injury in the pelvis were the source was. I attempted to identify this but again the venous bleeding was rather brisk. We lost several 100 cc of blood and a very short period of time. I was concerned about large vessel injury therefore I placed pressure with 2 sponges on the opening compressing the midline venous structures. This achieved hemostasis and the patient remained stable. Anesthesia then placed a larger bore IVs and we waited until we have blood available. Transfusionwas started again our concern was for a large venous bleed. We had discussion about potential sources and are and our plan 1 or the residents had recent experience with a umbilical vein bleed. We discussed this and the soon as we were ready we released pressure and I left the lap sponge compressed within the abdomen and then we did a quick midline laparotomy. Indeed we identified in a hurry the la rge bore twin umbilical veins which were bleeding profusely. I was able to gain control these both the manually and then with a Michelle clamp. Once the Michelle clamp controlled the this bleeding we inspected the abdomen and again everything in the pelvis and the posterior retroperitoneum was dry. We and did not need to extend our laparotomy distally be below the umbilicus we had been prepared to do so. We then ligated the umbilical veins 1st with a large 0 Vicryl tie together then individually with2-0 Vicryl sutures. We placed a 3rd running suture line anterior to the Michelle for three-level control. We released the Michelle after the 1st 2 steps and everything appeared hemostatic. We then had ligated the distal portion control the distal portion as well with Kellys prior to ligating these were released the Kellys we did not see significant backbleeding. The size of the veins was roughly 1 1-1-1/2 cm and especially distally near the umbilicus. The veins distally were controlled as well. With 0 Vicryl suture. We then again irrigated and inspected again pelvis and retroperitoneum were dry theumbilical veins had been controlled. We then noted the patient had umbilical hernia this fat was reduced and the umbilical hernia was incorporated into our closure we used a 1. PDS to close the fascia and then the subcutaneous tissue both above and below the umbilicus where it had been incised wereclosed with 2-0 Vicryl. The skin was closed with 4-0 Monocryl and skin glue was used. The patient remained stable the pulmonary pressures were somewhat high therefore we elected to keep the patient intubated to PACU. Interestingly on post case review we noted the dilated umbilical veins and they appeared to be even greatly dilated as part of the umbilical hernia. Needle sponge instrument counts were correct both at the end of the laparoscopic and the laparotomy portions of the case. Complications: umbilical vein hemorrhage from abnormally pesistent and dilated unbilical veins requiring laparotomy and suture control Submitted by: Dyllan Paul MD - 06/15/2025 * Brief Op Note - Adam Earl MD - 06/12/2025 3:20 PM EDT Date: 06/12/25 Location: [place] Name: Eber Lowe, : 1955, Diagnoses: Pre-op Diagnosis Prostate CA (CMS/HCC) Post-op Diagnosis Prostate CA (CMS/HCC) Procedure(s): Robotic-assisted laparoscopic radical prostatectomy Bilateral pelvic lymph node dissection Attending Surgeon(s): * Dyllan Paul - Primary Crossbow Maker(s): * Adam Earl MD - Resident - Assisting * Gregory Galicia MD - Resident - Assisting Anesthesia: General ASA: III Blood Administration: Blood Product Administration History Product Date Volume Status Transfuse RBC RBC 06/12/2025 350 mL Stopped RBC 06/12/2025 350 mL Stopped Estimated Blood Loss: 1300 mL Drains: Closed/Suction Drain 1 RUQ Bulb 10 Fr. (Active) Urethral Catheter Double-lumen;Non-latex 20 Fr. (Active) [REMOVED] Urethral Catheter Double-lumen;Non-latex 18 Fr. (Removed) Specimen: Specimens ID Source Frozen? 1 Other (specify site) No Description: Prostate and seminal vesicles - fresh for permanent 2 Other (specify site) No Description: Bilateral pelvic lymph nodes - permanent Findings: Wide prostate with large intravesical median lobe and large posterior prostate. Partial nerve sparing on the left and nearly complete nerve sparing on the right. No gross extraprostatic disease. Bilateral pelvic lymph node dissection without gross extranodal disease. No rectal injury noted. No bladder neck reconstruction required with watertight vesicourethral anastomosis. Adequate hemostasis at end of robotic portion of procedure. Significant bleeding (>1L) upon transverse extension of midline supraumbilical port incision forextraction. Pressure applied posteriorly to tamponade while further anesthesia staff and blood was mobilized. Incision extended cranially down to peritoneum and a widely patent lumen of a transected umbilical vein was identified. This was clamped, ligated with 0-vicryl and transected end was oversewn. The other transected portion near the umbilicus appeared hemostatic but this was also suture ligated and oversewn. Patient required some vasopressor support and 2u pRBC but was otherwise hemodynamically stable at end of case. Anesthesia elected to keep patient intubated post-operatively Complications: Transection of patent umbilical vein required suture ligation and oversewing. Briefly required vasopressor support and 2u pRBC. Hemodynamically stable at end of case. Transferred to PACU intubated. Plan: - Admit to ICU; CCM consulted and appreciate support - Post-op labs; AM labs - Multimodal pain control; IV Tylenol 500mg - NPO - Continue martinez catheter off tension and DANILO drain Submitted by: Adam Earl MD - 06/12/2025 Cosigned by Dyllan Paul MD at 06/13/2025 9:20 AM EDT Associated attestation - Dyllan Paul MD - 06/13/2025 9:20 AM EDT I was present for the entirety of the procedure(s). * H&P - Adam Earl MD - 06/12/2025 1:49 PM EDT Images from the original note were not included. [facility] History and Physical 06/12/25 HPI: Eber Lowe is a 70 y.o. male with unfavorable intermediate risk prostate cancer, GG3 diffusely on the left, PSA 4.7. Decipher high-risk. PSMA PET scan showing no evidence of metastatic disease. Hehas minimal LUTS and no ED. Patient presents today for operative intervention. No significant changes since last encounter. Proceed to OR for planned procedure. Past Medical History: Past Medical History[1] Past Surgical History:: Surgical History[2] Family History: Family History[3] Social History: Social History[4] Allergies: Allergies[5] Medications: Current Outpatient Medications Medication Instructions atorvastatin (LIPITOR) 10 mg, Daily carvedilol (COREG) 3.125 mg, Oral, 2 times daily clobetasol (Temovate) 0.05 % external solution as needed. DIPHENHYDRAMINE HCL, SLEEP, PO 16 mg, Nightly PRN furosemide (LASIX) 40 mg, Daily ketoconazole (NIZOral) 2 % cream as needed. ketoconazole (NIZOral) 2 % shampoo Melatonin 10 mg, Nightly PRN mzdroflowfxm-gxhr-lngvyuue-folic acid (Centrum) chewable tablet 1 tablet, Daily potassium chloride CR (Klor-Con) 10 MEQ ER tablet 10 mEq, Daily psyllium (Metamucil) 58.6 % powder 1 packet, Oral, Daily triamcinolone (Kenalog) 0.1 % ointment 1 Application, As needed Vitamin E 1,000 Units, Daily Travel History Relevant International Travel History: Travel Screening Question Response Have you been in contact with someone who was sick? No / Unsure Do you have any of the following new or worsening symptoms? None of these Have you traveled internationally or domestically in the last month? Yes Travel History Travel since 05/13/25 Location Start Date End Date [place] ([facility]) 06/01/25 06/02/25 ROS: 14 point review of systems otherwise negative except as per HPI. PHYSICAL EXAM: Temp: [36.6 ??C (97.9 ??F)] 36.6 ??C (97.9 ??F) Heart Rate: [62] 62 Resp: [15] 15 BP: (137)/(83) 137/83 SpO2: [93 %] 93 % No intake/output data recorded. No intake/output data recorded. GEN: NAD HEENT: NCAT, EOMI RESP: Equal bilateral chest rise, normal work of breathing CV: Appears well perfused ABD: Nondistended : Deferred EXT: No gross deformities MSK: Normal ROM in BL UE NEURO: No focal deficits, AOx3 PSYCH: Appropriate mood and affect LABS: No recent or pertinent labs to review. Imaging: No recent or pertinent imaging to review. Hospital Problem List: Active Problems: Severe obesity (BMI 35.0-39.9) with comorbidity (CMS/HCC) Assessment: Eber Lowe is a 70 y.o. male with unfavorable intermediate risk prostate cancer. Plan: To OR today for robotic-assisted laparoscopic radical prostatectomy with bilateral pelvic lymph node dissection. NPO per anesthesia recommendations. Risk, benefits, and alternatives discussed. Consent obtained from patient. [1] Past Medical History: Diagnosis Date Cancer (CMS/HCC) january 26, 2025 Cirrhosis ([facility]) 2021 History of methicillin resistant Staphylococcus aureus 2011 Hyperlipidemia Hypertension Kidney stone various Substance abuse alcohol [2] Past Surgical History: Procedure Laterality Date CHOLECYSTECTOMY 2009 lap KNEE ARTHROSCOPY W/ MENISCAL REPAIR OTHER SURGICAL HISTORY Lipoma resection UMBILICAL HERNIA REPAIR [3] Family History Problem Relation Name Age of Onset Heart disease Mother Anesthesia problems Neg Hx Malig Hyperthermia Neg Hx [4] Social History Tobacco Use Smoking status: Never Passive exposure: Never Smokeless tobacco: Never Vaping Use Vaping status: Never Used Substance Use Topics Alcohol use: Yes Comment: Currently social use. Drug use: Never [5] No Known Allergies Cosigned by Dyllan Paul MD at 06/13/2025 9:19 AM EDT documented in this encounter Plan of Treatment Upcoming Encounters Date Type Department Care Team (Latest Contact Info) Description 08/22/2025 9:00 AM EDT Office Visit Professional [facility] Nephrology, Bone & Mineral Metabolism [address], [address] [place] [address] Kathia Watkins MD [address] [facility] [address] [place] [address] 08/28/2025 7:30 AM EDT Hospital Encounter [facility] [address] [place] [address] Dyllan Paul MD [address] [facility] [address] [place] [address] 08/28/2025 7:30 AM EDT Anesthesia Event [facility] [address] [place] [address] Paige Starkey, SEMI DRIVER [address] [facility] [address] [place] [address] 08/28/2025 7:30 AM EDT - 08/28/2025 9:15 AM EDT Surgery [facility] [address] [place] [address] Dyllan Paul MD [address] [address] URETEROSCOPY, WITH LASER LITHOTRIPSY [61366 (CPT )] 09/03/2025 9:20 AM EDT Office Visit [facility] [address] [place] [address] Richi Awad MD [address] [place] [address] Scheduled Procedures Name Priority Associated Diagnoses Date/Ti me URETEROSCOPY, WITH LASER LITHOTRIPSY Ureteral stone 08/28/2025 7:30 AM EDT Scheduled Referrals Name Type Priority Associated Diagnoses Orde r Schedule Discharge Ambulatory referral to [facility] Health Outpatient Referral Routine Prostate CA ([facility]) 1 Occurrences starting 06/23/2025 until 12/25/2026 Discharge Ambulatory referral to [facility] Physical Therapy Outpatient Referral Routine H/O prostatectomy Expected: 06/25/2025 (Approximate), Expires: 12/27/2026 Discharge Ambulatory referral to [facility] Occupational Therapy Outpatient Referral Routine H/O prostatectomy Expected: 06/25/2025 (Approximate), Expires: 12/27/2026 Discharge Ambulatory referral to Internal Medicine Outpatient Referral Routine Alcoholic cirrhosis of liver with ascites (CMS/HCC) Expected: 06/25/2025 (Approximate), Expires: 12/27/2026 Discharge Ambulatory referral to Hepatology Outpatient Referral Routine Hepatic cirrhosis, unspecified hepatic cirrhosis type, unspecified whether ascites present (CMS/HCC) Expected: 06/25/2025 (Approximate), Expires: 12/27/2026 Discharge Ambulatory referral to Hepatology Outpatient Referral Routine Alcoholic cirrhosis of liver with ascites (CMS/HCC) Hepatic cirrhosis, unspecified hepatic cirrhosis type, unspecified whether ascites present (CMS/HCC) 1 Occurrences starting 06/25/2025 until 12/27/2026 documented as of this encounter Procedures Procedure Name Priority Date/Time Associated Diagnosis Comments CALCULI (KIDNEY STONE)ANALYSIS (SO) Routine 06/25/2025 7:00 AM EDT CBC W/O DIFFERENTIAL Routine 06/25/2025 5:50 AM EDT PHOSPHORUS, PLASMA Routine 06/25/2025 5:50 AM EDT MAGNESIUM, PLASMA Routine 06/25/2025 5:50 AM EDT COMPREHENSIVE METABOLIC PANEL, PLASMA Routine 06/25/2025 5:50 AM EDT VAS US VENOUS DUPLEX LOWER EXTREMITY BILATERAL Routine 06/24/2025 3:02 PM EDT VAS US VENOUS DUPLEX UPPER EXTREMITY BILATERAL Routine 06/24/2025 2:18 PM EDT POTASSIUM, PLASMA Routine 06/24/2025 12:35 PM EDT PERIPHERAL BLOOD SMEAR, PATHOLOGIST INTERPRETATION Routine 06/24/2025 2:14 AM EDT CBC WITH AUTO DIFFERENTIAL Routine 06/24/2025 2:14 AM EDT PHOSPHORUS, PLASMA Routine 06/24/2025 2:14 AM EDT MAGNESIUM, PLASMA Routine 06/24/2025 2:14 AM EDT COMPREHENSIVE METABOLIC PANEL, PLASMA Routine 06/24/2025 2:14 AM EDT CLOSTRIDIODES (CLOSTRIDIUM) DIFFICILE,PCR Pending Discharge 06/23/2025 9:17 AM EDT PROTHROMBIN TIME(PT) / INR Routine 06/23/2025 3:41 AM EDT CBC W/O DIFFERENTIAL Routine 06/23/2025 3:41 AM EDT PHOSPHORUS, PLASMA Routine 06/23/2025 3:41 AM EDT MAGNESIUM, PLASMA Routine 06/23/2025 3:41 AM EDT COMPREHENSIVE METABOLIC PANEL, PLASMA Routine 06/23/2025 3:[address] ANGIO PULMONARY EMBOLISM STAT 06/22/2025 2:26 PM EDT TROPONIN T, HIGH SENSITIVITY, 2 HOUR, PLASMA Timed 06/22/2025 1:57 PM EDT TROPONIN T, HIGH SENSITIVITY, 0 HOUR, PLASMA, REFLEX TO 2 HOUR STAT 06/22/2025 12:33 PM EDT LACTATE, VENOUS Routine 06/22/2025 12:33 PM EDT PROCALCITONIN, PLASMA Routine 06/22/2025 12:33 PM EDT BLOOD CULTURE (AEROBIC/ANAEROBIC SET) Routine 06/22/2025 12:33 PM EDT SEDIMENTATION RATE, AUTOMATED Routine 06/22/2025 12:33 PM EDT C-REACTIVE PROTEIN, PLASMA Routine 06/22/2025 12:[address] ABDOMEN PELVIS W IV CONTRAST STAT 06/22/2025 8:58 AM EDT N-TERMINAL PROBNP, PLASMA Add-On 2024 1:57 AM EDT PROTHROMBIN TIME(PT) / INR Routine 06/22/2025 1:57 AM EDT CBC W/O DIFFERENTIAL Routine 06/22/2025 1:57 AM EDT PHOSPHORUS, PLASMA Routine 06/22/2025 1:57 AM EDT MAGNESIUM, PLASMA Routine 06/22/2025 1:57 AM EDT COMPREHENSIVE METABOLIC PANEL, PLASMA Routine 06/22/2025 1:57 AM EDT PROTHROMBIN TIME(PT) / INR Routine 06/21/2025 3:25 AM EDT CBC W/O DIFFERENTIAL Routine 06/21/2025 3:25 AM EDT PHOSPHORUS, PLASMA Routine 06/21/2025 3:25 AM EDT MAGNESIUM, PLASMA Routine 06/21/2025 3:25 AM EDT COMPREHENSIVE METABOLIC PANEL, PLASMA Routine 06/21/2025 3:25 AM EDT CREATININE, DRAIN FLUID Routine 06/20/20 1:43 PM EDT CBC W/O DIFFERENTIAL Routine 06/20/2025 11:12 AM EDT BLOOD GAS PANEL, VENOUS Routine 06/20/20 11:12 AM EDT FL CYSTOGRAM Timed 06/20/2025 10:01 AM EDT PROTHROMBIN TIME(PT) / INR Routine 06/20/2025 2:07 AM EDT PHOSPHORUS, PLASMA Routine 06/20/2025 2:07 AM EDT MAGNESIUM, PLASMA Routine 06/20/2025 2:07 AM EDT COMPREHENSIVE METABOLIC PANEL, PLASMA Routine 06/20/2025 2:07 AM EDT URINALYSIS MICROSCOPIC FOR UA REFLEX Routine 06/19/2025 2:16 PM EDT SODIUM, URINE, RANDOM Routine 06/19/2025 2:16 PM EDT OSMOLALITY, URINE Routine 06/19/2025 2:16 PM EDT CREATININE, RANDOM URINE Routine 2:16 PM EDT URINALYSIS WITH REFLEX MICROSCOPIC Routine 06/19/2025 2:16 PM EDT POCT GLUCOSE METER UNSOLICITED RESULTS Routine 06/19/2025 12:41 PM EDT POCT GLUCOSE METER UNSOLICITED RESULTS Routine 06/19/2025 9:58 AM EDT POCT GLUCOSE METER UNSOLICITED RESULTS Routine 06/19/2025 5:49 AM EDT CYSTATIN C Add-On 06/19/2025 1:00 AM EDT CBC W/O DIFFERENTIAL Routine 06/19/2025 1:00 AM EDT PHOSPHORUS, PLASMA Routine 06/19/2025 1:00 AM EDT OSMOLALITY, SERUM Add-On 06/19/2025 1:00 AM EDT MAGNESIUM, PLASMA Routine 06/19/2025 1:00 AM EDT AMMONIA, PLASMA Routine 06/19/2025 1:00 AM EDT HEPATIC FUNCTION PANEL Add-On 1:00 AM EDT BASIC METABOLIC PANEL, PLASMA Routine 06/19/2025 1:00 AM EDT POCT GLUCOSE METER UNSOLICITED RESULTS Routine 06/19/2025 12:59 AM EDT OXYGEN THERAPY Routine 06/18/2025 6:00 PM EDT POCT GLUCOSE METER UNSOLICITED RESULTS Routine 06/18/2025 5:37 PM EDT POCT GLUCOSE METER UNSOLICITED RESULTS Routine 06/18/2025 12:29 PM EDT GA CRITICAL CARE, E/M 30-74 MINUTES Routine 06/18/2025 9:49 AM EDT Prostate CA (CMS/HCC) Alcohol use disorder Leukocytosis, unspecified type Severe obesity (BMI 35.0-39.9) with comorbidity (CMS/HCC) SCC (squamous cell carcinoma), leg, left Renal calculi OXYGEN THERAPY Routine 06/18/2025 8:00 AM EDT POCT GLUCOSE METER UNSOLICITED RESULTS Routine 06/18/2025 5:50 AM EDT BLOOD GAS PANEL, ARTERIAL Routine 2024 5:47 AM EDT POCT GLUCOSE METER UNSOLICITED RESULTS Routine 06/18/2025 12:10 AM EDT CBC W/O DIFFERENTIAL Routine 06/17/2025 11:58 PM EDT PHOSPHORUS, PLASMA Routine 06/17/2025 11:58 PM EDT MAGNESIUM, PLASMA Routine 06/17/2025 11:58 PM EDT AMMONIA, PLASMA Routine 06/17/2025 11:58 PM EDT BASIC METABOLIC PANEL, PLASMA Routine 06/17/2025 11:58 PM EDT OXYGEN THERAPY Routine 06/17/2025 6:00 PM EDT POCT GLUCOSE METER UNSOLICITED RESULTS Routine 06/17/2025 5:41 PM EDT BLOOD GAS PANEL, ARTERIAL Timed 2024 3:55 PM EDT OXYGEN THERAPY Routine 06/17/2025 1:08 PM EDT OXYGEN THERAPY Routine 06/17/2025 1:[address] HEAD WO IV CONTRAST STAT 12:17 PM EDT BLOOD GAS PANEL, ARTERIAL Timed 2024 11:44 AM EDT POCT GLUCOSE METER UNSOLICITED RESULTS Routine 06/17/2025 11:42 AM EDT BLOOD GAS PANEL, ARTERIAL Timed 2024 8:55 AM EDT AMMONIA, PLASMA Routine 06/17/2025 8:55 AM EDT GA CRITICAL CARE, E/M 30-74 MINUTES Routine 06/17/2025 8:36 AM EDT Prostate CA ([facility]) Alcohol use disorder On mechanically assisted ventilation ([facility]) Leukocytosis, unspecified type Hyperbilirubinemi a Electrolyte abnormality Severe obesity (BMI 35.0-39.9) with comorbidity ([facility]/HCC) SCC (squamous cell carcinoma), leg, left XR CHEST 1 VIEW Routine 06/17/2025 5:34 AM EDT POCT GLUCOSE METER UNSOLICITED RESULTS Routine 06/17/2025 5:28 AM EDT BLOOD GAS PANEL, ARTERIAL Timed 2024 3:30 AM EDT AMMONIA, PLASMA Routine 06/17/2025 3:30 AM EDT CBC W/O DIFFERENTIAL Routine 06/17/2025 12:24 AM EDT TSH Add-On 06/17/2025 12:24 AM EDT FREE T4, PLASMA Add-On 06/17/2025 12:24 AM EDT PHOSPHORUS, PLASMA Routine 06/17/2025 12:24 AM EDT MAGNESIUM, PLASMA Routine 06/17/2025 12:24 AM EDT BLOOD GAS PANEL, ARTERIAL Timed 2024 12:24 AM EDT BASIC METABOLIC PANEL, PLASMA Routine 06/17/2025 12:24 AM EDT POCT GLUCOSE METER UNSOLICITED RESULTS Routine 06/17/2025 12:15 AM EDT BLOOD GAS PANEL, ARTERIAL Timed 2024 8:32 PM EDT POCT GLUCOSE METER UNSOLICITED RESULTS Routine 06/16/2025 5:31 PM EDT AMMONIA, PLASMA Routine 06/16/2025 5:21 PM EDT COMPREHENSIVE METABOLIC PANEL, PLASMA Routine 06/16/2025 5:21 PM EDT BLOOD GAS PANEL, ARTERIAL Timed 2024 5:20 PM EDT POCT GLUCOSE METER UNSOLICITED RESULTS Routine 06/16/2025 11:40 AM EDT GA CRITICAL CARE, E/M 30-74 MINUTES Routine 06/16/2025 10:30 AM EDT Prostate CA (CMS/HCC) Alcohol use disorder On mechanically assisted ventilation (CMS/[facility]) Leukocytosis, unspecified type Hypocalcemia Electrolyte abnormality Severe obesity (BMI 35.0-39.9) with comorbidity (CMS/HCC) SCC (squamous cell carcinoma), leg, left Renal calculi Other secondary hypertension ECHO, ADULT TRANSTHORACIC COMPLETE Routine 06/16/2025 8:10 AM EDT POCT GLUCOSE METER UNSOLICITED RESULTS Routine 06/16/2025 8:09 AM EDT END TIDAL CO2 MONITORING Routine 025 8:00 AM EDT VENTILATOR - ADULT Routine 06/16/2025 8:00 AM EDT CBC W/O DIFFERENTIAL Routine 06/16/2025 4:24 AM EDT TRIGLYCERIDES, PLASMA Timed 06/16/2025 4:24 AM EDT PHOSPHORUS, PLASMA Routine 06/16/2025 4:24 AM EDT MAGNESIUM, PLASMA Routine 06/16/2025 4:24 AM EDT HEMOGLOBIN A1C Add-On 06/16/2025 4:24 AM EDT BASIC METABOLIC PANEL, PLASMA Routine 06/16/2025 4:24 AM EDT XR CHEST 1 VIEW Timed 06/16/2025 4:23 AM EDT END TIDAL CO2 MONITORING Routine 025 8:00 PM EDT VENTILATOR - ADULT Routine 06/15/2025 8:00 PM EDT STREPTOCOCCUS PNEUMONIAE AND LEGIONELLA URINARY ANTIGEN Routine 06/15/2025 2:53 PM EDT MYCOPLASMA PNEUMONIAE BY PCR (SO) STAT 06/15/2025 2:49 PM EDT NASOPHARYNGEAL RESPIRATORY PANEL STAT 06/15/2025 2:47 PM EDT MYCOPLASMA PNEUMONIAE ANTIBODIES, IGG & IGM (SO) STAT 06/15/2025 2:42 PM EDT BLOOD GAS PANEL, ARTERIAL Timed 2024 11:39 AM EDT VANCOMYCIN, RANDOM, PLASMA Routine 06/15/2025 11:38 AM EDT GA CRITICAL CARE, E/M 30-74 MINUTES Routine 06/15/2025 9:09 AM EDT Prostate CA (CMS/HCC) END TIDAL CO2 MONITORING Routine 025 8:00 AM EDT VENTILATOR - ADULT Routine 06/15/2025 8:00 AM EDT BLOOD GAS PANEL, ARTERIAL Timed 2024 6:20 AM EDT XR CHEST 1 VIEW Timed 06/15/2025 6:12 AM EDT SBT - SPONTANEOUS BREATHING TRIAL Routine 06/15/2025 6:00 AM EDT CBC W/O DIFFERENTIAL Routine 06/15/2025 12:25 AM EDT PHOSPHORUS, PLASMA Routine 06/15/2025 12:25 AM EDT MAGNESIUM, PLASMA Routine 06/15/2025 12:25 AM EDT BLOOD GAS PANEL, ARTERIAL Timed 2024 12:25 AM EDT BASIC METABOLIC PANEL, PLASMA Routine 06/15/2025 12:25 AM EDT END TIDAL CO2 MONITORING Routine 025 8:00 PM EDT VENTILATOR - ADULT Routine 06/14/2025 8:00 PM EDT BLOOD GAS PANEL, ARTERIAL Timed 2024 6:07 PM EDT VENTILATOR - ADULT Routine 06/14/2025 3:26 PM EDT VENTILATOR - ADULT Routine 06/14/2025 3:26 PM EDT BLOOD GAS PANEL, ARTERIAL Timed 2024 12:09 PM EDT GA CRITICAL CARE, E/M 30-74 MINUTES Routine 06/14/2025 9:53 AM EDT Prostate CA (CMS/HCC) URINALYSIS MICROSCOPIC FOR UA REFLEX Routine 06/14/2025 8:21 AM EDT URINALYSIS WITH REFLEX MICROSCOPIC Routine 06/14/2025 8:21 AM EDT RESPIRATORY CULTURE AND GRAM STAIN Routine 06/14/2025 8:18 AM EDT XR ABDOMEN 1 VIEW STAT 06/14/2025 8:18 AM EDT PROCALCITONIN, PLASMA Routine 06/14/2025 8:17 AM EDT BLOOD CULTURE (AEROBIC/ANAEROBIC SET) Routine 06/14/2025 8:17 AM EDT END TIDAL CO2 MONITORING Routine 8:00 AM EDT VENTILATOR - ADULT Routine 06/14/2025 6:37 AM EDT SBT - SPONTANEOUS BREATHING TRIAL Routine 06/14/2025 6:00 AM EDT BLOOD GAS PANEL, ARTERIAL Timed 2024 5:30 AM EDT ECG ADULT Routine 06/14/2025 4:26 AM EDT XR CHEST 1 VIEW STAT 06/14/2025 4:00 AM EDT BLOOD GAS PANEL, ARTERIAL STAT 2024 3:35 AM EDT N-TERMINAL PROBNP, PLASMA Add-On 2024 12:41 AM EDT CBC W/O DIFFERENTIAL Routine 06/14/2025 12:41 AM EDT PHOSPHORUS, PLASMA Routine 06/14/2025 12:41 AM EDT MAGNESIUM, PLASMA Routine 06/14/2025 12:41 AM EDT BLOOD GAS PANEL, ARTERIAL Timed 2024 12:41 AM EDT BASIC METABOLIC PANEL, PLASMA Routine 06/14/2025 12:41 AM EDT END TIDAL CO2 MONITORING Routine 025 8:00 PM EDT WOUND OSTOMY EVAL AND TREAT Routine 06/13/2025 5:47 PM EDT BLOOD GAS PANEL, ARTERIAL Timed 2024 5:13 PM EDT IONIZED CALCIUM, WHOLE BLOOD Routine 06/13/2025 3:35 PM EDT MAGNESIUM, PLASMA Routine 06/13/2025 3:35 PM EDT RENAL FUNCTION PANEL, PLASMA Routine 06/13/2025 3:35 PM EDT VENTILATOR - ADULT Routine 06/13/2025 1:27 PM EDT WOUND OSTOMY EVAL AND TREAT Routine 06/13/2025 12:21 PM EDT HEMOGLOBIN AND HEMATOCRIT, BLOOD STAT 06/13/2025 11:57 AM EDT BLOOD GAS PANEL, ARTERIAL Timed 2024 11:30 AM EDT GA CRITICAL CARE, ADDL 30 MIN Routine 06/13/2025 10:48 AM EDT Prostate CA ([facility]) Alcohol use disorder On mechanically assisted ventilation ([facility]) Leukocytosis, unspecified type Hypotension due to hypovolemia Hypocalcemia Hyperbilirubinemi a Electrolyte abnormality END TIDAL CO2 MONITORING Routine 025 8:00 AM EDT SBT - SPONTANEOUS BREATHING TRIAL Routine 06/13/2025 6:00 AM EDT IONIZED CALCIUM, WHOLE BLOOD Routine 06/13/2025 4:53 AM EDT BLOOD GAS PANEL, ARTERIAL Routine 2024 4:53 AM EDT INSERT PERIPHERAL IV STAT 06/13/2025 4:14 AM EDT CBC W/O DIFFERENTIAL Routine 06/13/2025 12:26 AM EDT RICHAR AURIS SURVEILLANCE BY PCR Routine 06/12/2025 10:48 PM EDT MULTI DRUG RESISTANCE TEST Routine 06/12/2025 10:48 PM EDT BLOOD GAS PANEL, ARTERIAL Routine 2024 10:47 PM EDT GA CRITICAL CARE, ADDL 30 MIN Routine 06/12/2025 10:22 PM EDT Prostate CA (CMS/HCC) GA CRITICAL CARE, ADDL 30 MIN Routine 06/12/2025 10:22 PM EDT Prostate CA (CMS/HCC) GA CRITICAL CARE, ADDL 30 MIN Routine 06/12/2025 10:22 PM EDT Prostate CA (CMS/HCC) POCT GLUCOSE METER UNSOLICITED RESULTS Routine 06/12/2025 10:19 PM EDT XR CHEST 1 VIEW STAT 06/12/2025 9:54 PM EDT APTT Routine 06/12/2025 9:27 PM EDT PROTHROMBIN TIME(PT) / INR Routine 06/12/2025 9:27 PM EDT CBC W/O DIFFERENTIAL Routine 06/12/2025 9:27 PM EDT PHOSPHORUS, PLASMA Routine 06/12/2025 9:27 PM EDT MAGNESIUM, PLASMA Routine 06/12/2025 9:27 PM EDT COMPREHENSIVE METABOLIC PANEL, PLASMA Routine 06/12/2025 9:27 PM EDT POCT ARTERIAL BLOOD GAS GEM UNSOLICITED RESULTS Routine 06/12/2025 9:19 PM EDT END TIDAL CO2 MONITORING Routine 9:07 PM EDT END TIDAL CO2 MONITORING Routine 9:07 PM EDT END TIDAL CO2 MONITORING Routine 9:07 PM EDT SBT - SPONTANEOUS BREATHING TRIAL Routine 06/12/2025 9:07 PM EDT VENTILATOR - ADULT Routine 06/12/2025 9:07 PM EDT VENTILATOR - ADULT Routine 06/12/2025 9:07 PM EDT POCT VENOUS BLOOD GAS GEM UNSOLICITED RESULTS Routine 06/12/2025 7:35 PM EDT TRANSFUSE RED BLOOD CELLS Routine 2024 7:15 PM EDT TRANSFUSE RED BLOOD CELLS Routine 2024 7:02 PM EDT PREPARE RBC STAT 06/12/2025 6:49 PM EDT SURGICAL PATHOLOGY EXAM Routine 06/12/20 6:07 PM EDT Prostate CA (CMS/HCC) GA LAP,PROSTATECTOMY,RADICAL ,W/NERVE SPARE,INCL ROBOTIC 06/12/2025 2:26 PM EDT Prostate CA (CMS/HCC) POCT GLUCOSE METER UNSOLICITED RESULTS Routine 06/12/2025 1:21 PM EDT PHOSPHATIDYLETHANOL (PETH), WHOLE BLOOD, QUANTITATIVE (SO) Routine 06/12/2025 1:14 PM EDT TYPE AND SCREEN Routine 06/12/2025 1:14 PM EDT documented in this encounter Results * CT Urogram (07/22/2025 7:53 AM EDT) Anatomical Region Laterality Modality Abdomen, Pelvis Computed Tomogra phy Impressions 07/22/2025 8:50 AM EDT 1. Bilateral renal calculi. Persistent calculus in the right mid ureter. Interval placement of a right-sided ureteral stent. No hydronephrosis. 2. Stable partially exophytic indeterminate lesion in the upper pole of the right kidney. MRI scan with contrast may be performed for further evaluation. 3. Changes of cirrhosis and sequela of portal hypertension. CRITICAL RESULT: No. COMMUNICATION: Per this written report. Drafted by Jorge Sosa MD on 07/22/2025 8:46 AM Final report signed by Jorge Sosa MD on 07/22/2025 8:50 AM Narrative 07/22/2025 8:50 AM EDT CLINICAL INDICATION: stones TECHNIQUE: Multiple pre-contrast axial CT images were obtained from lower chest through pubic symphysis, followed by multiple axial CT images of abdomen and pelvis following split bolus administration of IV contrast, Omnipaque 300, 150 mL. Reformatted images in the coronal and sagittal planes were generated from the axial data set to facilitate diagnostic accuracy. Total DLP (Dose-Length Product): 1233.58 mGy.cm. Please note: The reported value represents the total of one or more individual components during the CT acquisition on this date and at this time, and as such, the same value may appear in more than one CT report depending on the interpreting/reporting physicians. COMPARISON: 06/28/2025 FINDINGS: Kidneys, Ureters, Bladder: Interval placement of a right ureteral stent. A persistent 6 mm calculus is seen in the right mid ureter (series 3 image 141). Punctate bilateral nonobstructing renal calculi are also unchanged. 12 mm partially exophytic indeterminate lesion in the upper films right kidney is unchanged (series 6 image 95). No new suspicious renal masses. No obvious filling defects or abnormal wall thickening to the visualized portions of the collecting systems, ureters or the urinary bladder. Remaining Solid Abdominal and Pelvic Organs: Changes of cirrhosis and chronic parenchymal liver disease. Stable subcentimeter low-attenuation lesion in the posterior right hepatic lobe which is indeterminate and too small to characterize. Status post cholecystectomy. No biliary obstruction. Normal pancreas and adrenal glands. Stable splenomegaly. GI Tract/Mesentery/Peritoneum: The large and small bowel appear normal in caliber without evidence of inflammation. Free Fluid: Trace ascites. Lymph Nodes and Vasculature: Stable borderline and mildly enlarged periportal and retroperitoneal nodes, nonspecific. Patent portal and hepatic vasculature. Numerous intra-abdominal venous collaterals. Musculoskeletal and Body Wall: No clearly aggressive bone lesions or significant body wall findings. Lower Chest: No suspicious findings. Procedure Note Jorge Sosa MD - 07/22/2025 CLINICAL INDICATION: stones TECHNIQUE: Multiple pre-contrast axial CT images were obtained from lower chestthrough pubic symphysis, followed by multiple axial CT images of abdomenand pelvis following split bolus administration of IV contrast, [id number], 150 mL. Reformatted images in the coronal and sagittal planes weregenerated from the axial data set to facilitate diagnostic accuracy. Total DLP (Dose-Length Product): 1233.58 mGy.cm. Please note: The reportedvalue represents the total of one or more individual components during theCT acquisition on this date and at this time, and as such, the same valuemay appear in more than one CT report depending on theinterpreting/reporting physicians. COMPARISON: 06/28/2025 FINDINGS: Kidneys, Ureters, Bladder: Interval placement of a right ureteral stent. Apersistent 6 mm calculus is seen in the right mid ureter (series 3 [id number]). Punctate bilateral nonobstructing renal calculi are also unchanged.12 mm partially exophytic indeterminate lesion in the upper films rightkidney is unchanged (series 6 image 95). No new suspicious renal masses.No obvious filling defects or abnormal wall thickening to the visualizedportions of the collecting systems, ureters or the urinary bladder. Remaining Solid Abdominal and Pelvic Organs: Changes of cirrhosis andchronic parenchymal liver disease. Stable subcentimeter low-attenuationlesion in the posterior right hepatic lobe which is indeterminate and toosmall to characterize. Status post cholecystectomy. No biliaryobstruction. Normal pancreas and adrenal glands. Stable splenomegaly. GI Tract/Mesentery/Peritoneum: The large and small bowel appear normal incaliber without evidence of inflammation. Free Fluid: Trace ascites. Lymph Nodes and Vasculature: Stable borderline and mildly enlargedperiportal and retroperitoneal nodes, nonspecific. Patent portal andhepatic vasculature. Numerous intra-abdominal venous collaterals. Musculoskeletal and Body Wall: No clearly aggressive bone lesions orsignificant body wall findings. Lower Chest: No suspicious findings. IMPRESSION: 1. Bilateral renal calculi. Persistent calculus in the right mid ureter.Interval placement of a right-sided ureteral stent. No hydronephrosis. 2. Stable partially exophytic indeterminate lesion in the upper pole ofthe right kidney. MRI scan with contrast may be performed for furtherevaluation. 3. Changes of cirrhosis and sequela of portal hypertension. CRITICAL RESULT: No. COMMUNICATION: Per this written report. Drafted by Jorge Sosa MD on 07/22/2025 8:46 AM Final report signed by Jorge Sosa MD on 07/22/2025 8:50 AM Trice Herrera MD IMG CT PROCEDURES Final Resul t * Calculi (Stone) Analysis (06/25/2025 7:00 AM EDT) Calculi Mass 394 mg 06/28/2025 4:02 PM EDT [facility] ([facility]) Calculi Description See Note 06/28/2025 4:02 PM EDT [facility] ([facility]) Calculi Composition See Note 06/28/2025 4:02 PM EDT [facility] ([facility]) Calculus Non-blood Collection / Unknown 06/25/2025 7:00 AM EDT 06/25/2025 8:10 AM EDT Narrative [facility] ([facility]) - 06/28/2025 4:02 PM EDT Specimen consists of one brown calculus. The total weight is 394 mg. Calculi composed primarily of: 10% calcium oxalate monohydrate, 60% calcium oxalate dihydrate, and 30% calcium phosphate (hydroxy- and carbonate- apatite). INTERPRETIVE INFORMATION: Calculi (Stone) analysis Calculi are the products of physiological processes that yield crystalline compounds in a matrix of biological compounds and blood. Matrix components are not reported. The clinically significant crystalline components identified in calculi specimens are reported. Gross description may not be consistent with composition determined by FTIR analysis. Performed By: [facility] [address] [place] [address] Recharger: Sotero Banuelos MD, PhD CLIA Number: [id number] us Dyllan Paul MD LAB REF LAB BLOOD AND FLUID O RD Final Result [facility]) [address] [place] [id number] * (ABNORMAL) Hemogram (CBC) (06/25/2025 5:50 AM EDT) Pathologist [facility] WBC Count 15.32(H) 3.70 - 10.30 10*3/uL LAB HEMATOLOGY METHOD 06/25/2025 6:59 AM EDT [facility] RBC Count 3.44(L) 4.60 - 6.10 10*6/uL LAB HEMATOLOGY METHOD 06/25/2025 6:59 AM EDT [facility] HGB 11.2(L) 13.7 - 17.5 g/dL LAB HEMATOLOGY METHOD 06/25/2025 6:59 AM EDT [facility] HCT 32.7(L) 40.0 - 51.0 % LAB HEMATOLOGY METHOD 06/25/2025 6:59 AM EDT [facility] Platelet Count 114(L) 155 - 369 10*3/uL LAB HEMATOLOGY METHOD 06/25/2025 6:59 AM EDT [facility] MCV 95 79 - 98 fL LAB HEMATOLOGY METHOD 06/25/2025 6:59 AM EDT [facility] MCH 32.6(H) 26.0 - 32.0 pg LAB HEMATOLOGY METHOD 06/25/2025 6:59 AM EDT [facility] MCHC 34.3 30.7 - 35.5 g/dL LAB HEMATOLOGY METHOD 06/25/2025 6:59 AM EDT [facility] RDW 16.7(H) 11.5 - 14.5 % LAB HEMATOLOGY METHOD 06/25/2025 6:59 AM EDT [facility] MPV 11.7 8.8 - 12.5 fL LAB HEMATOLOGY METHOD 06/25/2025 6:59 AM EDT [facility] nRBC 0.0 <=0.0 per 100 WBCs LAB HEMATOLOGY METHOD 06/25/2025 6:59 AM EDT [facility] Blood Venous blood specimen / Unknown Venipuncture / Unknown 06/25/2025 5:50 AM EDT 06/25/2025 6:48 AM EDT us Dyllan Paul MD LAB BLOOD ORDERABLES Final Re sult [facility] [address] [place] [address] * (ABNORMAL) Comprehensive metabolic panel (06/25/2025 5:50 AM EDT) Glucose, Plasma 84 74 - 99 mg/dL 06/25/2025 7:20 AM EDT [facility] BUN, Plasma 30(H) 8 - 23 mg/dL 06/25/2025 7:20 AM EDT [facility] Creatinine, Plasma 1.14 0.70 - 1.20 mg/dL 06/25/2025 7:20 AM EDT [facility] BUN/Creatinine Ratio 26 06/25/2025 7:20 AM EDT [facility] Sodium, Plasma 134(L) 136 - 145 mmol/L 06/25/2025 7:20 AM EDT [facility] Potassium, Plasma 3.4(L) 3.6 - 4.9 mmol/L 06/25/2025 7:20 AM EDT [facility] Chloride, Plasma 100 97 - 107 mmol/L 06/25/2025 7:20 AM EDT [facility] CO2, Plasma 26 22 - 29 mmol/L 06/25/2025 7:20 AM EDT [facility] Anion Gap 8 6 - 16 mmol/L 06/25/2025 7:20 AM EDT [facility] Total Calcium, Plasma 8.1(L) 8.9 - 10.2 mg/dL 06/25/2025 7:20 AM EDT [facility] Total Protein 4.5(L) 6.3 - 7.9 g/dL 06/25/2025 7:20 AM EDT [facility] Albumin, Plasma 2.4(L) 3.5 - 5.2 g/dL 06/25/2025 7:20 AM EDT [facility] AST, Plasma 77(H) 10 - 50 U/L 06/25/2025 7:20 AM EDT [facility] ALT, Plasma 45 10 - 50 U/L 06/25/2025 7:20 AM EDT [facility] Alkaline Phosphatase, Plasma 129(H) 40 - 115 U/L 06/25/2025 7:20 AM EDT [facility] Total Bilirubin, Plasma 1.7(H) 0.2 - 1.1 mg/dL 06/25/2025 7:20 AM EDT [facility] eGFRcr 69.2 mL/min/1.7 3m*2 06/25/2025 7:20 AM EDT [facility] Comment:Reported eGFRcr in m L/min/1.73m2 is based the CKD-EPI 2020 equation that does not use a race coefficient. Blood Venous blood specimen / Unknown Venipuncture / Unknown 06/25/2025 5:50 AM EDT 06/25/2025 6:48 AM EDT us Dyllan Paul MD LAB BLOOD ORDERABLES Final Re sult Performing Organization Address City/[facility]/ZIP Co de Phone Number [facility] [address] [place] [address] * Phosphorus (06/25/2025 5:50 AM EDT) Phosphorus, Plasma 3.5 2.5 - 4.5 mg/dL 06/25/2025 7:[address] [facility] Blood Venous blood specimen / Unknown Venipuncture / Unknown 06/25/2025 5:50 AM EDT 06/25/2025 6:48 AM EDT us Dyllan Paul MD LAB BLOOD ORDERABLES Final Re sult Performing Organization Address [facility] Co de Phone Number [facility] [address] [place] [address] * Magnesium (06/25/2025 5:50 AM EDT) Magnesium, Plasma 2.2 1.9 - 2.4 mg/dL 06/25/2025 7:20 AM EDT [facility] Blood Venous blood specimen / Unknown Venipuncture / Unknown 06/25/2025 5:50 AM EDT 06/25/2025 6:48 AM EDT us Dyllan Paul MD LAB BLOOD ORDERABLES Final Re sult Performing Organization Address City/[facility]/ZIP Co de Phone Number [facility] [address] [place] [address] * VAS US Venous Duplex Lower Extremity Bilateral (06/24/2025 3:02 PM EDT) Anatomical Region Laterality Modality Lower Extremities Bilateral Ultrasound Impressions 06/24/2025 4:56 PM EDT Right: Normal study; no evidence of acute DVT is identified. Left: Normal study; no evidence of acute DVT is identified. COMMUNICATION: Per this written report. Preliminary report signed by Lynne Allred on 06/24/2025 3:11 PM By electronically signing this report, I, the attending physician, attest that I have personally reviewed the images/data for the above examination(s) and I agree with the final edited report. Drafted by Lynne Allred on 06/24/2025 3:08 PM Final report signed by Eber Gilbert MD on 06/24/2025 4:56 PM Narrative 06/24/2025 4:56 PM EDT CLINICAL INDICATION: SOB/PE TECHNIQUE: Non-invasive, real time duplex exam of the lower extremity venous circulation with Doppler ultrasonic waveform and spectral analysis was performed. COMPARISON: None. FINDINGS: Right: Venous duplex demonstrates compressible common femoral, femoral, popliteal, posterior tibial and peroneal veins. The venous spectral analysis demonstrates a spontaneous, phasic, augmentable and nonpulsatile flow signal. Left: Venous duplex demonstrates compressible common femoral, femoral, popliteal, posterior tibial and peroneal veins. The venous spectral analysis demonstrates a spontaneous, phasic, augmentable and nonpulsatile flow signal. Procedure Note Eber Gilbert MD - 06/24/2025 CLINICAL INDICATION: SOB/PE TECHNIQUE: Non-invasive, real time duplex exam of the lower extremity venouscirculation with Doppler ultrasonic waveform and spectral analysis wasperformed. COMPARISON: None. FINDINGS: Right: Venous duplex demonstrates compressible common femoral, femoral,popliteal, posterior tibial and peroneal veins. The venous spectralanalysis demonstrates a spontaneous, phasic, augmentable and nonpulsatileflow signal. Left: Venous duplex demonstrates compressible common femoral, femoral,popliteal, posterior tibial and peroneal veins. The venous spectralanalysis demonstrates a spontaneous, phasic, augmentable and nonpulsatileflow signal. IMPRESSION: Right: Normal study; no evidence of acute DVT is identified. Left: Normal study; no evidence of acute DVT is identified. COMMUNICATION: Per this written report. Preliminary report signed by Lynne Allred on 06/24/2025 3:11 PM By electronically signing this report, I, the attending physician, attestthat I have personally reviewed the images/data for the aboveexamination(s) and I agree with the final edited report. Drafted by Lynne Allred on 06/24/2025 3:08 PM Final report signed by Eber Gilbert MD on 06/24/2025 4:56 PM us Dyllan Paul MD CV VASCULAR PROCEDURES Final Result * VAS US Venous Duplex Upper Extremity Bilateral (06/24/2025 2:18 PM EDT) Anatomical Region Laterality Modality Upper Extremities, Vascular Bilateral Ultr asound Impressions 06/24/2025 4:57 PM EDT Right: Abnormal study; no evidence of acute DVT is identified. Superficial venous thrombus is demonstrated in the cephalic vein as described above. Left: Abnormal study; evidence of acute DVT is identified in one of the brachial veins as described above. Superficial venous thrombus is demonstrated in the basilic and cephalic veins as described above. COMMUNICATION: Preliminary findings discussed with Mick Campoverde DO with RB. Preliminary report signed by Shanique Arceo RVT on 06/24/2025 4:26 PM By electronically signing this report, I, the attending physician, attest that I have personally reviewed the images/data for the above examination(s) and I agree with the final edited report. Drafted by Shanique Arceo RVT on 06/24/2025 3:17 PM Final report signed by Eber Gilbert MD on 06/24/2025 4:57 PM Narrative 06/24/2025 4:57 PM EDT CLINICAL INDICATION: SOB +/- PE. TECHNIQUE: Non-invasive, real time duplex exam of the upper extremity venous circulation with Doppler ultrasonic waveform and spectral analysis was performed. COMPARISON: None. FINDINGS: Right: Venous duplex demonstrates compressible IJV, subclavian, axillary, brachial, and basilic veins. Hypoechoic, occlusive thrombus is demonstrated in the cephalic vein at the IV site, which is dilated and noncompressible.The venous spectral analysis demonstrates a spontaneous, phasic and augmentable flow signal. Left: Venous duplex demonstrates compressible IJV, subclavian, axillary, basilic (below the ACF) and cephalic (above the ACF) veins. Hypoechoic, occlusive thrombus is demonstrated in one of the brachial veins, which is dilated and noncompressible. Hypoechoic, occlusive thrombus is demonstrated in the basilic vein (above the ACF) and the cephalic vein (below the ACF), which is dilated and noncompressible. The venous spectral analysis demonstrates a spontaneous, phasic and augmentable flow signal. Procedure Note Eber Gilbert MD - 06/24/2025 CLINICAL INDICATION: SOB +/- PE. TECHNIQUE: Non-invasive, real time duplex exam of the upper extremity venouscirculation with Doppler ultrasonic waveform and spectral analysis wasperformed. COMPARISON: None. FINDINGS: Right: Venous duplex demonstrates compressible IJV, subclavian, axillary,brachial, and basilic veins. Hypoechoic, occlusive thrombus isdemonstrated in the cephalic vein at the IV site, which is dilated andnoncompressible.The venous spectral analysis demonstrates a spontaneous,phasic and augmentable flow signal. Left: Venous duplex demonstrates compressible IJV, subclavian, axillary,basilic (below the ACF) and cephalic (above the ACF) veins. Hypoechoic,occlusive thrombus is demonstrated in one of the brachial veins, which isdilated and noncompressible. Hypoechoic, occlusive thrombus isdemonstrated in the basilic vein (above the ACF) and the cephalic vein(below the ACF), which is dilated and noncompressible. The venous spectralanalysis demonstrates a spontaneous, phasic and augmentable flow signal. IMPRESSION: Right: Abnormal study; no evidence of acute DVT is identified. Superficialvenous thrombus is demonstrated in the cephalic vein as described above. Left: Abnormal study; evidence of acute DVT is identified in one of thebrachial veins as described above. Superficial venous thrombus isdemonstrated in the basilic and cephalic veins as described above. COMMUNICATION: Preliminary findings discussed with Mick Campoverde DO with [facility]. Preliminary report signed by Shanique Arceo RVT on 06/24/2025 4:26 PM By electronically signing this report, I, the attending physician, attestthat I have personally reviewed the images/data for the aboveexamination(s) and I agree with the final edited report. Drafted by Shanique Arceo RVT on 06/24/2025 3:17 PM Final report signed by Eber Gilbert MD on 06/24/2025 4:57 PM us Dyllan Paul MD CV VASCULAR PROCEDURES Final Result * Potassium level repeated 2 hours after the total replacement is completed (06/24/2025 12:35 PM EDT) Potassium, Plasma 3.6 3.6 - 4.9 mmol/L 06/24/2025 1:21 PM EDT [facility] Blood Venous blood specimen / Unknown Venipuncture / Unknown 06/24/2025 12:35 PM EDT 06/24/2025 12:58 PM EDT us Camden Hilario MD LAB BLOOD ORDERABLES Final Result [facility] [address] [place] [address] * Peripheral blood smear, pathologist interpretation (06/24/2025 2:14 AM EDT) Clinical Diagnosis, Peripheral Smear Leukocytosis, recent surgery (prostatectomy for prostate cancer), history of cirrhosis LAB HEMATOLOGY METHOD 06/24/2025 3:21 PM EDT [facility] Interpretation , Peripheral Smear Moderate leukocytosis with neutrophilia, left shift and toxic granulations. Few atypical small lymphocytes with mature condensed chromatin. Mild anemia with anisocytosis. Mild thrombocytopeni a. See comment 06/24/2025 3:21 PM EDT [facility] Pathologist Signature, Peripheral Smear 06/24/2025 3:21 PM EDT [facility] Comment:Reviewed by: Sue Stapleton MD Blood Venous blood specimen / Unknown Venipuncture / Unknown 06/24/2025 2:14 AM EDT 06/24/2025 2:19 AM EDT Narrative [facility] - 06/24/2025 3:21 PM EDT The lymphocyte morphology is concerning for chronic lymphoproliferative disorder. A flow cytometry immunophenotyping is suggested, if clinically indicated. us Dyllan Paul MD LAB PATHOLOGY ORDERABLES Francia lise Result [facility] [address] [place] [address] * (ABNORMAL) CBC and differential (06/24/2025 2:14 AM EDT) WBC Count 20.07(H) 3.70 - 10.30 10*3/uL LAB HEMATOLOGY METHOD 06/24/2025 3:40 AM EDT [facility] RBC Count 3.59(L) 4.60 - 6.10 10*6/uL LAB HEMATOLOGY METHOD 06/24/2025 3:40 AM EDT [facility] HGB 11.8(L) 13.7 - 17.5 g/dL LAB HEMATOLOGY METHOD 06/24/2025 3:40 AM EDT [facility] HCT 34.1(L) 40.0 - 51.0 % LAB HEMATOLOGY METHOD 06/24/2025 3:40 AM EDT [facility] Platelet Count 128(L) 155 - 369 10*3/uL LAB HEMATOLOGY METHOD 06/24/2025 3:40 AM EDT [facility] MCV 95 79 - 98 fL LAB HEMATOLOGY METHOD 06/24/2025 3:40 AM EDT [facility] MCH 32.9(H) 26.0 - 32.0 pg LAB HEMATOLOGY METHOD 06/24/2025 3:40 AM EDT [facility] [facility] MCHC 34.6 30.7 - 35.5 g/dL LAB HEMATOLOGY METHOD 06/24/2025 3:40 AM EDT [facility] RDW 16.2(H) 11.5 - 14.5 % LAB HEMATOLOGY METHOD 06/24/2025 3:40 AM EDT [facility] MPV 11.2 8.8 - 12.5 fL LAB HEMATOLOGY METHOD 06/24/2025 3:40 AM EDT [facility] nRBC 0.0 <=0.0 per 100 WBCs LAB HEMATOLOGY METHOD 06/24/2025 3:40 AM EDT [facility] Differential Type Automated LAB HEMATOLOGY METHOD 06/24/2025 3:40 AM EDT [facility] Neutrophils % 45 % LAB HEMATOLOGY METHOD 06/24/2025 3:40 AM EDT [facility] Lymphocytes % 39 % LAB HEMATOLOGY METHOD 06/24/2025 3:40 AM EDT [facility] Monocytes % 9 % LAB HEMATOLOGY METHOD 06/24/2025 3:40 AM EDT [facility] Eosinophils % 5 % LAB HEMATOLOGY METHOD 06/24/2025 3:40 AM EDT [facility] Basophils % 1 % LAB HEMATOLOGY METHOD 06/24/2025 3:40 AM EDT [facility] Immature Granulocytes % 1 % LAB HEMATOLOGY METHOD 06/24/2025 3:40 AM EDT [facility] Neutrophils Absolute 9.32(H) 1.60 - 6.10 10*3/uL LAB HEMATOLOGY METHOD 06/24/2025 3:40 AM EDT [facility] Lymphocytes Absolute 7.73(H) 1.20 - 3.90 10*3/uL LAB HEMATOLOGY METHOD 06/24/2025 3:40 AM EDT [facility] Monocytes Absolute 1.80(H) 0.30 - 0.90 10*3/uL LAB HEMATOLOGY METHOD 06/24/2025 3:40 AM EDT [facility] Eosinophils Absolute 0.90(H) 0.00 - 0.50 10*3/uL LAB HEMATOLOGY METHOD 06/24/2025 3:40 AM EDT [facility] Basophils Absolute 0.17(H) 0.00 - 0.10 10*3/uL LAB HEMATOLOGY METHOD 06/24/2025 3:40 AM EDT [facility] Immature Granulocytes Absolute 0.15(H) 0.00 - 0.06 10*3/uL LAB HEMATOLOGY METHOD 06/24/2025 3:40 AM EDT [facility] Blood Venous blood specimen / Unknown Venipuncture / Unknown 06/24/2025 2:14 AM EDT 06/24/2025 2:19 AM EDT [facility] - 06/24/2025 3:40 AM EDT Therapeutic decision making should be based on absolute values, rather than percentages. us Dyllan Paul MD LAB BLOOD ORDERABLES Final Re sult [facility] [address] [place] [address] * (ABNORMAL) Comprehensive metabolic panel (06/24/2025 2:14 AM EDT) Glucose, Plasma 105(H) 74 - 99 mg/dL 06/24/2025 2:46 AM EDT [facility] BUN, Plasma 33(H) 8 - 23 mg/dL 06/24/2025 2:46 AM EDT [facility] Creatinine, Plasma 1.20 0.70 - 1.20 mg/dL 06/24/2025 2:46 AM EDT [facility] BUN/Creatinine Ratio 28 06/24/2025 2:46 AM EDT [facility] Sodium, Plasma 135(L) 136 - 145 mmol/L 06/24/2025 2:46 AM EDT [facility] Potassium, Plasma 3.3(L) 3.6 - 4.9 mmol/L 06/24/2025 2:46 AM EDT [facility] Chloride, Plasma 101 97 - 107 mmol/L 06/24/2025 2:46 AM EDT [facility] CO2, Plasma 24 22 - 29 mmol/L 06/24/2025 2:46 AM EDT [facility] Anion Gap 10 6 - 16 mmol/L 06/24/2025 2:46 AM EDT [facility] Total Calcium, Plasma 8.3(L) 8.9 - 10.2 mg/dL 06/24/2025 2:46 AM EDT [facility] Total Protein 4.9(L) 6.3 - 7.9 g/dL 06/24/2025 2:46 AM EDT [facility] Albumin, Plasma 2.5(L) 3.5 - 5.2 g/dL 06/24/2025 2:46 AM EDT [facility] AST, Plasma 82(H) 10 - 50 U/L 06/24/2025 2:46 AM EDT [facility] Comment:Hemolyzed, result ma y be falsely increased. ALT, Plasma 50 10 - 50 U/L 06/24/2025 2:46 AM EDT [facility] Alkaline Phosphatase, Plasma 142(H) 40 - 115 U/L 06/24/2025 2:46 AM EDT [facility] Total Bilirubin, Plasma 1.7(H) 0.2 - 1.1 mg/dL 06/24/2025 2:46 AM EDT [facility] eGFRcr 65.1 mL/min/1.7 3m*2 06/24/2025 2:46 AM EDT [facility] Comment:Reported eGFRcr in m L/min/1.73m2 is based the CKD-EPI 2020 equation that does not use a race coefficient. Blood Venous blood specimen / Unknown Venipuncture / Unknown 06/24/2025 2:14 AM EDT 06/24/2025 2:19 AM EDT us Dyllan Paul MD LAB BLOOD ORDERABLES Final Re sult Performing Organization Address [facility] Co de Phone Number [facility] [address] [place] [address] * Phosphorus (06/24/2025 2:14 AM EDT) Phosphorus, Plasma 3.4 2.5 - 4.5 mg/dL 06/24/2025 2:46 AM EDT [facility] Blood Venous blood specimen / Unknown Venipuncture / Unknown 06/24/2025 2:14 AM EDT 06/24/2025 2:19 AM EDT us Dyllan Paul MD LAB BLOOD ORDERABLES Final Re sult [facility] [address] [place] [address] * Magnesium (06/24/2025 2:14 AM EDT) Magnesium, Plasma 2.2 1.9 - 2.4 mg/dL 06/24/2025 2:46 AM EDT [facility] Blood Venous blood specimen / Unknown Venipuncture / Unknown 06/24/2025 2:14 AM EDT 06/24/2025 2:19 AM EDT Dyllan Paul MD LAB BLOOD ORDERABLES Final Re sult Performing Organization Address [facility]/ZIP Co de Phone Number [facility] [address] [place] [address] * Clostridiodes (Clostridium) difficile PCR (06/23/2025 9:17 AM EDT) C difficile PCR toxin B gene DNA Result Not Detected Not Detected 06/23/2025 11:44 AM EDT [facility] Stool Rectum structure / Unknown Non-blood Collection / Unknown 06/23/2025 9:17 AM EDT 06/23/2025 10:27 AM EDT Narrative [facility] - 06/23/2025 11:44 AM EDT This test is FDA approved for use with liquid stool specimens. This test is used for clinical purposes. It should not be regarded as investigational or for research. This laboratory is certified under the Clinical Laboratory Improvement Amendments of 1988 (CLIA-88) as qualified to perform high complexity clinical laboratory testing. Dyllan Paul MD LAB MICROBIOLOGY - GENERAL OR DERABLES Final Result Performing Organization Address [facility]/ZIP Co de Phone Number [facility] [address] [place] [address] * (ABNORMAL) Comprehensive metabolic panel (06/23/2025 3:41 AM EDT) Glucose, Plasma 110(H) 74 - 99 mg/dL 06/23/2025 4:31 AM EDT [facility] BUN, Plasma 35(H) 8 - 23 mg/dL 06/23/2025 4:31 AM EDT [facility] Creatinine, Plasma 1.17 0.70 - 1.20 mg/dL 06/23/2025 4:31 AM EDT [facility] BUN/Creatinine Ratio 30 06/23/2025 4:31 AM EDT [facility] Sodium, Plasma 134(L) 136 - 145 mmol/L 06/23/2025 4:31 AM EDT [facility] Potassium, Plasma 3.6 3.6 - 4.9 mmol/L 06/23/2025 4:31 AM EDT [facility] Chloride, Plasma 101 97 - 107 mmol/L 06/23/2025 4:31 AM EDT [facility] CO2, Plasma 23 22 - 29 mmol/L 06/23/2025 4:31 AM EDT [facility] Anion Gap 10 6 - 16 mmol/L 06/23/2025 4:31 AM EDT [facility] Total Calcium, Plasma 8.5(L) 8.9 - 10.2 mg/dL 06/23/2025 4:31 AM EDT [facility] Total Protein 4.9(L) 6.3 - 7.9 g/dL 06/23/2025 4:31 AM EDT [facility] Albumin, Plasma 2.5(L) 3.5 - 5.2 g/dL 06/23/2025 4:31 AM EDT [facility] AST, Plasma 86(H) 10 - 50 U/L 06/23/2025 4:31 AM EDT [facility] Comment:Hemolyzed, result ma y be falsely increased. ALT, Plasma 52(H) 10 - 50 U/L 06/23/2025 4:31 AM EDT [facility] Alkaline Phosphatase, Plasma 138(H) 40 - 115 U/L 06/23/2025 4:31 AM EDT [facility] Total Bilirubin, Plasma 2.3(H) 0.2 - 1.1 mg/dL 06/23/2025 4:31 AM EDT [facility] eGFRcr 67.1 mL/min/1.7 3m*2 06/23/2025 4:31 AM EDT [facility] Comment:Reported eGFRcr in m L/min/1.73m2 is based the CKD-EPI 2020 equation that does not use a race coefficient. Blood Venous blood specimen / Unknown Venipuncture / Unknown 06/23/2025 3:41 AM EDT 06/23/2025 4:00 AM EDT us Dyllan Paul MD LAB BLOOD ORDERABLES Final Re sult [facility] [address] [place] [address] * Phosphorus (06/23/2025 3:41 AM EDT) Pathologist [facility] Phosphorus, Plasma 3.3 2.5 - 4.5 mg/dL 06/23/2025 4:31 AM EDT [facility] Blood Venous blood specimen / Unknown Venipuncture / Unknown 06/23/2025 3:41 AM EDT 06/23/2025 4:00 AM EDT us Dyllan Paul MD LAB BLOOD ORDERABLES Final Re sult [facility] [address] [place] [address] * Magnesium (06/23/2025 3:41 AM EDT) Pathologist [facility] Magnesium, Plasma 2.1 1.9 - 2.4 mg/dL 06/23/2025 4:31 AM EDT [facility] Blood Venous blood specimen / Unknown Venipuncture / Unknown 06/23/2025 3:41 AM EDT 06/23/2025 4:00 AM EDT us Dyllan Paul MD LAB BLOOD ORDERABLES Final Re sult [facility] [address] [place] [address] * (ABNORMAL) Hemogram (CBC) (06/23/2025 3:41 AM EDT) [facility] WBC Count 24.07(H) 3.70 - 10.30 10*3/uL LAB HEMATOLOGY METHOD 06/23/2025 4:07 AM EDT [facility] RBC Count 3.66(L) 4.60 - 6.10 10*6/uL LAB HEMATOLOGY METHOD 06/23/2025 4:07 AM EDT [facility] HGB 12.3(L) 13.7 - 17.5 g/dL LAB HEMATOLOGY METHOD 06/23/2025 4:07 AM EDT [facility] HCT 34.6(L) 40.0 - 51.0 % LAB HEMATOLOGY METHOD 06/23/2025 4:07 AM EDT [facility] Platelet Count 141(L) 155 - 369 10*3/uL LAB HEMATOLOGY METHOD 06/23/2025 4:07 AM EDT [facility] MCV 95 79 - 98 fL LAB HEMATOLOGY METHOD 06/23/2025 4:07 AM EDT [facility] MCH 33.6(H) 26.0 - 32.0 pg LAB HEMATOLOGY METHOD 06/23/2025 4:07 AM EDT [facility] MCHC 35.5 30.7 - 35.5 g/dL LAB HEMATOLOGY METHOD 06/23/2025 4:07 AM EDT [facility] RDW 15.9(H) 11.5 - 14.5 % LAB HEMATOLOGY METHOD 06/23/2025 4:07 AM EDT [facility] MPV 11.4 8.8 - 12.5 fL LAB HEMATOLOGY METHOD 06/23/2025 4:07 AM EDT [facility] nRBC 0.0 <=0.0 per 100 WBCs LAB HEMATOLOGY METHOD 06/23/2025 4:07 AM EDT [facility] Blood Venous blood specimen / Unknown Venipuncture / Unknown 06/23/2025 3:41 AM EDT 06/23/2025 4:00 AM EDT Dyllan Paul MD LAB BLOOD ORDERABLES Final Re sult [facility] [address] [place] [address] * (ABNORMAL) Prothrombin Time/INR (06/23/2025 3:41 AM EDT) Pathologist [facility] Prothrombin Time 18.6(H) 12.0 - 14.3 sec LAB COAGULATION METHOD 06/23/2025 4:17 AM EDT [facility] INR 1.5(H) 0.9 - 1.1 LAB COAGULATION METHOD 06/23/2025 4:17 AM EDT [facility] Blood Venous blood specimen / Unknown Venipuncture / Unknown 06/23/2025 3:41 AM EDT 06/23/2025 4:00 AM EDT Narrative [facility] - 06/23/2025 4:17 AM EDT OPTIMAL INR RANGES FOR PATIENT ON ORAL ANTICOAGULANT THERAPY Prevention of venous thromboembolism INR 2.0 to 3.0 In patients with heart disease: Atrial fibrillation INR 2.0 to 3.0 Valvular heart disease INR 2.0 to 3.0 Tissue heart valves INR 2.0 to 3.0 Mechanical prosthetic valves INR 2.5 to 3.5 Prevention of recurrent AK INR 2.5 to 3.5 us Dyllan Paul MD LAB BLOOD ORDERABLES Final Re sult [facility] [address] [place] [address] * CT Angio Pulmonary Embolism (06/22/2025 2:26 PM EDT) Anatomical Region Laterality Modality Chest Computed Tomogra phy Impressions 06/22/2025 3:28 PM EDT 1. Right lower segmental and subsegmental pulmonary embolism. 2. Multiple foci of pneumoperitoneum noted in the visualized upper abdomen. Please see separate report for findings of the concurrently performed abdominal CT. CRITICAL RESULT: Yes COMMUNICATION: Findings were discussed with Kalyani Kam DO by me via secure Epic chat at 3:28 PM on 06/22/2025. Drafted by Shannan Chong MD on 06/22/2025 3:12 PM Final report signed by Shannan Chong MD on 06/22/2025 3:28 PM Narrative 06/22/2025 3:28 PM EDT CLINICAL INDICATION: Pulmonary embolism (PE) suspected, high prob TECHNIQUE: Imaging of the chest was performed from thoracic inlet through upper abdomen, using spiral technique, with administration of IV contrast per the pulmonary angiogram protocol. 100 mL of Omnipaque-350 were administered intravenously. Coronal MIP images were reconstructed from this dataset. The imaging protocol used in this examination was optimized to achieve diagnostic quality with the lowest possible radiation dose in accordance with the principles of ALARA (As Low As Reasonably Achievable). COMPARISON: PET/CT dated 02/13/2025 FINDINGS: Pulmonary Arteries/Vessels: Right lower lobe segmental and subsegmental branches filling defects consistent with pulmonary embolism (series 4, image [id number]). Right Heart Strain: Absent. Mediastinum and Pleura: Subcentimeter mediastinal lymph nodes. Cardiomegaly. No pleural or pericardial effusion. Lungs: The central airways are patent. No lung consolidation or airspace disease. Bibasal atelectatic changes. Upper Abdomen: Multiple foci of pneumoperitoneum noted in the visualized upper abdomen. Please see separate report for findings of the concurrently performed abdominal CT. Musculoskeletal: No acute or suspicious bone lesion. Procedure Note Shannan Chong MD - 06/22/2025 CLINICAL INDICATION: Pulmonary embolism (PE) suspected, high prob TECHNIQUE: Imaging of the chest was performed from thoracic inlet through upperabdomen, using spiral technique, with administration of IV contrast perthe pulmonary angiogram protocol. 100 mL of Omnipaque-350 wereadministered intravenously. Coronal MIP images were reconstructed fromthis dataset. The imaging protocol used in this examination was optimized to achievediagnostic quality with the lowest possible radiation dose in accordancewith the principles of ALARA (As Low As Reasonably Achievable). COMPARISON: PET/CT dated 02/13/2025 FINDINGS: Pulmonary Arteries/Vessels: Right lower lobe segmental and subsegmentalbranches filling defects consistent with pulmonary embolism (series 4,image [id number]). Right Heart Strain: Absent. Mediastinum and Pleura: Subcentimeter mediastinal lymph nodes.Cardiomegaly. No pleural or pericardial effusion. Lungs: The central airways are patent. No lung consolidation or airspacedisease. Bibasal atelectatic changes. Upper Abdomen: Multiple foci of pneumoperitoneum noted in the visualizedupper abdomen. Please see separate report for findings of the concurrentlyperformed abdominal CT. Musculoskeletal: No acute or suspicious bone lesion. IMPRESSION: 1.Right lower segmental and subsegmental pulmonary embolism. 2.Multiple foci of pneumoperitoneum noted in the visualized upperabdomen. Please see separate report for findings of the concurrentlyperformed abdominal CT. CRITICAL RESULT: Yes COMMUNICATION: Findings were discussed with Kalyani Kam DO by me via secure Epic chatat 3:28 PM on 06/22/2025. Drafted by Shannan Chong MD on 06/22/2025 3:12 PM Final report signed by Shannan Chong MD on 06/22/2025 3:28 PM Dyllan Paul MD IMG CT PROCEDURES Final Resul t * Troponin T, High Sensitivity, 2 Hour, Plasma (06/22/2025 1:57 PM EDT) Troponin T, High Sensitivity, 2 Hour 16 <19 ng/L 06/22/2025 2:32 PM EDT [facility] Troponin Delta Interpretation Not Calculated 06/22/2025 2:32 PM EDT [facility] Comment:Specimen not collect ed within acceptable timeframe. Delta will not be calculated. Blood Venous blood specimen / Unknown Venipuncture / Unknown 06/22/2025 1:57 PM EDT 06/22/2025 2:04 PM EDT us Dyllan Paul MD LAB BLOOD ORDERABLES Final Re sult Performing Organization Address [facility]/ZIP Co de Phone Number [facility] [address] [place] [address] * Lactate, venous (06/22/2025 12:33 PM EDT) [facility] Lactate, Venous, Whole Blood 2.1 0.5 - 2.2 mmol/L LAB HEMATOLOGY METHOD 06/22/2025 12:47 PM EDT [facility] Blood Venous blood specimen / Unknown Venipuncture / Unknown 06/22/2025 12:33 PM EDT 06/22/2025 12:45 PM EDT us Dyllan Paul MD LAB BLOOD ORDERABLES Final Re sult [facility] [address] [place] [address] * Sedimentation Rate, Automated (06/22/2025 12:33 PM EDT) Pathologist [facility] Sedimentation Rate 13 <20 mm/hr 2024 12:58 PM EDT [facility] Blood Venous blood specimen / Unknown Venipuncture / Unknown 06/22/2025 12:33 PM EDT 06/22/2025 12:44 PM EDT us Dyllan Paul MD LAB BLOOD ORDERABLES Final Re sult Performing Organization Address [facility]/ZIP Co de Phone Number [facility] [address] [place] [address] * (ABNORMAL) C-reactive protein (06/22/2025 12:33 PM EDT) CRP, Plasma 58.6(H) <=8.0 mg/L 06/22/2025 1:19 PM EDT [facility] Blood Venous blood specimen / Unknown Venipuncture / Unknown 06/22/2025 12:33 PM EDT 06/22/2025 12:44 PM EDT Narrative [facility] - 06/22/2025 1:19 PM EDT This CRP test is appropriate for assessment of infection, systemic inflammation and/or tissue injury. To assess cardiovascular disease risk order high sensitivity CRP (CRPH). Dyllan Paul MD LAB BLOOD ORDERABLES Final Re sult Performing Organization Address [facility]/ZIP Co de Phone Number [facility] [address] [place] [address] * (ABNORMAL) Procalcitonin (06/22/2025 12:33 PM EDT) Pathologist [facility] Procalcitonin, Plasma 0.70(H) <0.09 ng/mL 06/22/2025 1:19 PM EDT [facility] Blood Venous blood specimen / Unknown Venipuncture / Unknown 06/22/2025 12:33 PM EDT 06/22/2025 12:44 PM EDT Narrative [facility] - 06/22/2025 1:19 PM EDT Procalcitonin concentrations in healthy individuals are <0.09 ng/mL. Published data support the following interpretive risk assessment: An elevated procalcitonin result does not always indicate sepsis. Various non-infectious conditions are known to increase procalcitonin. Results should be considered in the context of clinical symptoms and other laboratory tests. Procalcitonin >2.0 ng/mL: Concentrations >2.0 ng/mL on the first day of ICU admission are associated with a higher risk of progression to severe sepsis and/or septic shock. The change in PCT over time may help predict 28 day mortality risk. Please consult [email or web address] for more information. Test performed at [facility]. us Dyllan Paul MD LAB BLOOD ORDERABLES Final Re sult Performing Organization Address [facility] [place] [address] * Blood Culture (Aerobic/Anaerobet Set) (06/22/2025 12:33 PM EDT) Culture No growth at day 5 KEELY 06/27/2025 1:01 PM EDT [facility] Blood Venous blood specimen / Unknown Venipuncture / Unknown 06/22/2025 12:33 PM EDT 06/22/2025 12:47 PM EDT us Dyllan Paul MD LAB MICROBIOLOGY - GENERAL OR DERABLES Final Result Performing Organization Address [facility] [place] [address] * Troponin T, High Sensitivity, 0 Hour Plasma, Reflex to 2 Hour (06/22/2025 12:33 PM EDT) Troponin T, High Sensitivity, 0 Hour 14 <19 ng/L 06/22/2025 1:19 PM EDT [facility] Blood Venous blood specimen / Unknown Venipuncture / Unknown 06/22/2025 12:33 PM EDT 06/22/2025 12:44 PM EDT us Dyllan Paul MD LAB BLOOD ORDERABLES Final Re sult Performing Organization Address [facility] [place] [address] * CT Abdomen Pelvis w IV Contrast (06/22/2025 8:58 AM EDT) Anatomical Region Laterality Modality Abdomen, Pelvis Computed Tomogra phy Impressions 06/22/2025 11:13 AM EDT There is a roughly 6 mm calculus within the mid right ureter without significant upstream dilatation. Further bladder calculi are noted. Enhancing right renal nodule may represent renal cell carcinoma. Right lower lobe pulmonary embolus. Cirrhosis with stigmata of portal hypertension including splenomegaly, small volume ascites and abdominal venous collaterals. Nonspecific peripancreatic edema CRITICAL RESULT: Yes COMMUNICATION: These findings were discussed via phone with Dr. Rosalio Earl on 06/22/2025 11:10 AM by Scott Arriaga MD with acknowledgment of the results.. Drafted by Scott Arriaga MD on 06/22/2025 10:42 AM Final report signed by Scott Arriaga MD on 06/22/2025 11:13 AM Narrative 06/22/2025 11:13 AM EDT CLINICAL INDICATION: increasing leukocytosis, stone present on 03/2025 CT TECHNIQUE: Multiple axial CT images were obtained from lung bases through pubic symphysis following administration of IV contrast, Omnipaque 300, 100 mL. Delayed images of abdomen and kidneys were also obtained. Reformatted images in the coronal and sagittal planes were generated from the axial data set to facilitate diagnostic accuracy. Total DLP (Dose-Length Product): 705.88 mGy.cm. Please note: The reported value represents the total of one or more individual components during the CT acquisition on this date and at this time, and as such, the same value may appear in more than one CT report depending on the interpreting/reporting physicians. COMPARISON: CT from April 03, 2025 FINDINGS: Lower Chest: Pulmonary emboli are noted within the right lower lobe pulmonary arteries. Bibasal atelectatic change Solid Abdominal Organs: Cirrhotic liver is noted. No discrete suspicious focal liver lesions. Absent gallbladder. The pancreas is normal in bulk. Normal enhancement. Nonspecific peripancreatic/retroperitoneal edema. Enlarged spleen is again noted. No hydronephrosis. Calculus measuring roughly 6 mm is noted within the mid right ureter. Punctate nonobstructing left renal calculus is noted. There is also a 1.1 cm seemingly enhancing exophytic nodule arising from the right kidney (series 3 image 123). No adrenal mass. GI Tract/Mesentery/Peritoneum: Large and small bowel appear normal in caliber. There is small bowel mesenteric edema. There are a few pockets of free intraperitoneal gas within the upper abdomen (series 3 image 106). This likely relates to indwelling drain. Pelvic Viscera: Catheterized urinary bladder. Several bladder calculi are noted.. Lymph Nodes/Vasculature: Aortoiliac vasculature is normal in caliber and patent. Recannulized paraumbilical vein is noted. Periesophageal and gastrohepatic varices are noted. There are a few borderline enlarged dominic hepatis lymph nodes, likely reactive. Free Fluid: Trace Musculoskeletal and Body Wall: No clearly aggressive bone lesions. Procedure Note Scott Arriaga MD - 06/22/2025 CLINICAL INDICATION: increasing leukocytosis, stone present on 03/2025 CT TECHNIQUE: Multiple axial CT images were obtained from lung bases through pubicsymphysis following administration of IV contrast, Omnipaque 300, 100 mL.Delayed images of abdomen and kidneys were also obtained. Reformattedimages in the coronal and sagittal planes were generated from the axialdata set to facilitate diagnostic accuracy. Total DLP (Dose-Length Product): 705.88 mGy.cm. Please note: The reportedvalue represents the total of one or more individual components during theCT acquisition on this date and at this time, and as such, the same valuemay appear in more than one CT report depending on theinterpreting/reporting physicians. COMPARISON: CT from April 03, 2025 FINDINGS: Lower Chest: Pulmonary emboli are noted within the right lower lobepulmonary arteries. Bibasal atelectatic change Solid Abdominal Organs: Cirrhotic liver is noted. No discrete suspiciousfocal liver lesions. Absent gallbladder. The pancreas is normal in bulk.Normal enhancement. Nonspecific peripancreatic/retroperitoneal edema.Enlarged spleen is again noted. No hydronephrosis. Calculus measuringroughly 6 mm is noted within the mid right ureter. Punctate nonobstructingleft renal calculus is noted. There is also a 1.1 cm seemingly enhancingexophytic nodule arising from the right kidney (series 3 image 123). Noadrenal mass. GI Tract/Mesentery/Peritoneum: Large and small bowel appear normal incaliber. There is small bowel mesenteric edema. There are a few pockets offree intraperitoneal gas within the upper abdomen (series 3 image [id number]).This likely relates to indwelling drain. Pelvic Viscera: Catheterized urinary bladder. Several bladder calculi arenoted.. Lymph Nodes/Vasculature: Aortoiliac vasculature is normal in caliber andpatent. Recannulized paraumbilical vein is noted. Periesophageal andgastrohepatic varices are noted. There are a few borderline enlarged portahepatis lymph nodes, likely reactive. Free Fluid: Trace Musculoskeletal and Body Wall: No clearly aggressive bone lesions. IMPRESSION: There is a roughly 6 mm calculus within the mid right ureter withoutsignificant upstream dilatation. Further bladder calculi are noted. Enhancing right renal nodule may represent renal cell carcinoma. Right lower lobe pulmonary embolus. Cirrhosis with stigmata of portal hypertension including splenomegaly,small volume ascites and abdominal venous collaterals. Nonspecific peripancreatic edema CRITICAL RESULT: Yes COMMUNICATION: These findings were discussed via phone with Dr. Rosalio Earl on 06/22/2025 11:10AM by Scott Arriaga MD with acknowledgment of the results.. Drafted by Scott Arriaga MD on 06/22/2025 10:42 AM Final report signed by Scott Arriaga MD on 06/22/2025 11:13 AM us Dyllan Paul MD IMG CT PROCEDURES Final Resul t * N-Terminal Probnp (06/22/2025 1:57 AM EDT) N-Terminal, PROBNP, Plasma 74 0 - 899 pg/mL 06/22/2025 12:26 PM EDT [facility] Blood Venous blood specimen / Unknown Venipuncture / Unknown 06/22/2025 1:57 AM EDT 06/22/2025 2:09 AM EDT us Dyllan Paul MD LAB BLOOD ORDERABLES Final Re sult [facility] [address] [place] [address] * (ABNORMAL) Comprehensive metabolic panel (06/22/2025 1:57 AM EDT) Glucose, Plasma 107(H) 74 - 99 mg/dL 06/22/2025 2:38 AM EDT [facility] BUN, Plasma 39(H) 8 - 23 mg/dL 06/22/2025 2:38 AM EDT [facility] Creatinine, Plasma 1.15 0.70 - 1.20 mg/dL 06/22/2025 2:38 AM EDT [facility] BUN/Creatinine Ratio 34 06/22/2025 2:38 AM EDT [facility] Sodium, Plasma 139 136 - 145 mmol/L 06/22/2025 2:38 AM EDT [facility] Potassium, Plasma 3.5(L) 3.6 - 4.9 mmol/L 06/22/2025 2:38 AM EDT [facility] Chloride, Plasma 103 97 - 107 mmol/L 06/22/2025 2:38 AM EDT [facility] CO2, Plasma 24 22 - 29 mmol/L 06/22/2025 2:38 AM EDT [facility] Anion Gap 12 6 - 16 mmol/L 06/22/2025 2:38 AM EDT [facility] Total Calcium, Plasma 8.2(L) 8.9 - 10.2 mg/dL 06/22/2025 2:38 AM EDT [facility] Total Protein 4.4(L) 6.3 - 7.9 g/dL 06/22/2025 2:38 AM EDT [facility] Albumin, Plasma 2.6(L) 3.5 - 5.2 g/dL 06/22/2025 2:38 AM EDT [facility] AST, Plasma 78(H) 10 - 50 U/L 06/22/2025 2:38 AM EDT [facility] Comment:Hemolyzed, result ma y be falsely increased. ALT, Plasma 44 10 - 50 U/L 06/22/2025 2:38 AM EDT [facility] Alkaline Phosphatase, Plasma 130(H) 40 - 115 U/L 06/22/2025 2:38 AM EDT [facility] Total Bilirubin, Plasma 2.4(H) 0.2 - 1.1 mg/dL 06/22/2025 2:38 AM EDT [facility] eGFRcr 68.5 mL/min/1.7 3m*2 06/22/2025 2:38 AM EDT [facility] Comment:Reported eGFRcr in m L/min/1.73m2 is based the CKD-EPI 2020 equation that does not use a race coefficient. Blood Venous blood specimen / Unknown Venipuncture / Unknown 06/22/2025 1:57 AM EDT 06/22/2025 2:09 AM EDT Dyllan Paul MD LAB BLOOD ORDERABLES Final Re sult Performing Organization Address [facility] [place] [address] * Phosphorus (06/22/2025 1:57 AM EDT) Phosphorus, Plasma 3.2 2.5 - 4.5 mg/dL 06/22/2025 2:[address] [facility] Blood Venous blood specimen / Unknown Venipuncture / Unknown 06/22/2025 1:57 AM EDT 06/22/2025 2:09 AM EDT Dyllan Paul MD LAB BLOOD ORDERABLES Final Re sult Performing Organization Address [facility] de Phone Number [facility] [address] [place] [address] * Magnesium (06/22/2025 1:57 AM EDT) Magnesium, Plasma 2.1 1.9 - 2.4 mg/dL 06/22/2025 2:[address] [facility] Blood Venous blood specimen / Unknown Venipuncture / Unknown 06/22/2025 1:57 AM EDT 06/22/2025 2:09 AM EDT Dyllan Paul MD LAB BLOOD ORDERABLES Final Re sult Performing Organization Address [facility] de Phone Number [facility] [address] [place] [address] * (ABNORMAL) Hemogram (CBC) (06/22/2025 1:57 AM EDT) WBC Count 16.88(H) 3.70 - 10.30 10*3/uL LAB HEMATOLOGY METHOD 06/22/2025 2:20 AM EDT [facility] RBC Count 3.61(L) 4.60 - 6.10 10*6/uL LAB HEMATOLOGY METHOD 06/22/2025 2:20 AM EDT [facility] HGB 11.6(L) 13.7 - 17.5 g/dL LAB HEMATOLOGY METHOD 06/22/2025 2:20 AM EDT [facility] HCT 34.2(L) 40.0 - 51.0 % LAB HEMATOLOGY METHOD 06/22/2025 2:20 AM EDT [facility] Platelet Count 119(L) 155 - 369 10*3/uL LAB HEMATOLOGY METHOD 06/22/2025 2:20 AM EDT [facility] MCV 95 79 - 98 fL LAB HEMATOLOGY METHOD 06/22/2025 2:20 AM EDT [facility] MCH 32.1(H) 26.0 - 32.0 pg LAB HEMATOLOGY METHOD 06/22/2025 2:20 AM EDT [facility] MCHC 33.9 30.7 - 35.5 g/dL LAB HEMATOLOGY METHOD 06/22/2025 2:20 AM EDT [facility] RDW 15.8(H) 11.5 - 14.5 % LAB HEMATOLOGY METHOD 06/22/2025 2:20 AM EDT [facility] MPV 11.8 8.8 - 12.5 fL LAB HEMATOLOGY METHOD 06/22/2025 2:20 AM EDT [facility] nRBC 0.2(H) <=0.0 per 100 WBCs LAB HEMATOLOGY METHOD 06/22/2025 2:20 AM EDT [facility] Blood Venous blood specimen / Unknown Venipuncture / Unknown 06/22/2025 1:57 AM EDT 06/22/2025 2:09 AM EDT us Dyllan Paul MD LAB BLOOD ORDERABLES Final Re sult [facility] [address] [place] [address] * (ABNORMAL) Prothrombin Time/INR (06/22/2025 1:57 AM EDT) Prothrombin Time 18.3(H) 12.0 - 14.3 sec LAB COAGULATION METHOD 06/22/2025 2:29 AM EDT [facility] INR 1.5(H) 0.9 - 1.1 LAB COAGULATION METHOD 06/22/2025 2:29 AM EDT [facility] Blood Venous blood specimen / Unknown Venipuncture / Unknown 06/22/2025 1:57 AM EDT 06/22/2025 2:09 AM EDT Narrative [facility] - 06/22/2025 2:29 AM EDT OPTIMAL INR RANGES FOR PATIENT ON ORAL ANTICOAGULANT THERAPY Prevention of venous thromboembolism INR 2.0 to 3.0 In patients with heart disease: Atrial fibrillation INR 2.0 to 3.0 Valvular heart disease INR 2.0 to 3.0 Tissue heart valves INR 2.0 to 3.0 Mechanical prosthetic valves INR 2.5 to 3.5 Prevention of recurrent AK INR 2.5 to 3.5 us Dyllan Paul MD LAB BLOOD ORDERABLES Final Re sult [facility] [address] [place] [address] * (ABNORMAL) Comprehensive metabolic panel (06/21/2025 3:25 AM EDT) Glucose, Plasma 105(H) 74 - 99 mg/dL 06/21/2025 4:03 AM EDT [facility] BUN, Plasma 46(H) 8 - 23 mg/dL 06/21/2025 4:03 AM EDT [facility] Creatinine, Plasma 1.24(H) 0.70 - 1.20 mg/dL 06/21/2025 4:03 AM EDT [facility] BUN/Creatinine Ratio 37 06/21/2025 4:03 AM EDT [facility] Sodium, Plasma 138 136 - 145 mmol/L 06/21/2025 4:03 AM EDT [facility] Potassium, Plasma 3.5(L) 3.6 - 4.9 mmol/L 06/21/2025 4:03 AM EDT [facility] Chloride, Plasma 102 97 - 107 mmol/L 06/21/2025 4:03 AM EDT [facility] CO2, Plasma 24 22 - 29 mmol/L 06/21/2025 4:03 AM EDT [facility] Anion Gap 12 6 - 16 mmol/L 06/21/2025 4:03 AM EDT [facility] Total Calcium, Plasma 8.3(L) 8.9 - 10.2 mg/dL 06/21/2025 4:03 AM EDT [facility] Total Protein 4.8(L) 6.3 - 7.9 g/dL 06/21/2025 4:03 AM EDT [facility] Albumin, Plasma 2.5(L) 3.5 - 5.2 g/dL 06/21/2025 4:03 AM EDT [facility] AST, Plasma 73(H) 10 - 50 U/L 06/21/2025 4:03 AM EDT [facility] ALT, Plasma 41 10 - 50 U/L 06/21/2025 4:03 AM EDT [facility] Alkaline Phosphatase, Plasma 125(H) 40 - 115 U/L 06/21/2025 4:03 AM EDT [facility] Total Bilirubin, Plasma 3.4(H) 0.2 - 1.1 mg/dL 06/21/2025 4:03 AM EDT [facility] eGFRcr 62.5 mL/min/1.7 3m*2 06/21/2025 4:03 AM EDT [facility] Comment:Reported eGFRcr in m L/min/1.73m2 is based the CKD-EPI 2020 equation that does not use a race coefficient. Blood Venous blood specimen / Unknown Venipuncture / Unknown 06/21/2025 3:25 AM EDT 06/21/2025 3:33 AM EDT us Dyllan Paul MD LAB BLOOD ORDERABLES Final Re sult [facility] [address] [place] [address] * Phosphorus (06/21/2025 3:25 AM EDT) Phosphorus, Plasma 3.7 2.5 - 4.5 mg/dL 06/21/2025 4:03 AM EDT [facility] Blood Venous blood specimen / Unknown Venipuncture / Unknown 06/21/2025 3:25 AM EDT 06/21/2025 3:33 AM EDT us Dyllan Paul MD LAB BLOOD ORDERABLES Final Re sult Performing Organization Address City/[facility]/ZIP Co de Phone Number [facility] [address] [place] [address] * Magnesium (06/21/2025 3:25 AM EDT) Magnesium, Plasma 2.1 1.9 - 2.4 mg/dL 06/21/2025 4:03 AM EDT [facility] Blood Venous blood specimen / Unknown Venipuncture / Unknown 06/21/2025 3:25 AM EDT 06/21/2025 3:33 AM EDT Dyllan Paul MD LAB BLOOD ORDERABLES Final Re sult Performing Organization Address City/[facility]/ZIP Co de Phone Number [facility] [address] [place] [address] * (ABNORMAL) Hemogram (CBC) (06/21/2025 3:25 AM EDT) WBC Count 15.49(H) 3.70 - 10.30 10*3/uL LAB HEMATOLOGY METHOD 06/21/2025 3:43 AM EDT [facility] RBC Count 3.73(L) 4.60 - 6.10 10*6/uL LAB HEMATOLOGY METHOD 06/21/2025 3:43 AM EDT [facility] HGB 12.3(L) 13.7 - 17.5 g/dL LAB HEMATOLOGY METHOD 06/21/2025 3:43 AM EDT [facility] HCT 35.1(L) 40.0 - 51.0 % LAB HEMATOLOGY METHOD 06/21/2025 3:43 AM EDT [facility] Platelet Count 107(L) 155 - 369 10*3/uL LAB HEMATOLOGY METHOD 06/21/2025 3:43 AM EDT [facility] MCV 94 79 - 98 fL LAB HEMATOLOGY METHOD 06/21/2025 3:43 AM EDT [facility] MCH 33.0(H) 26.0 - 32.0 pg LAB HEMATOLOGY METHOD 06/21/2025 3:43 AM EDT [facility] MCHC 35.0 30.7 - 35.5 g/dL LAB HEMATOLOGY METHOD 06/21/2025 3:43 AM EDT [facility] RDW 15.9(H) 11.5 - 14.5 % LAB HEMATOLOGY METHOD 06/21/2025 3:43 AM EDT [facility] MPV 11.8 8.8 - 12.5 fL LAB HEMATOLOGY METHOD 06/21/2025 3:43 AM EDT [facility] nRBC 0.2(H) <=0.0 per 100 WBCs LAB HEMATOLOGY METHOD 06/21/2025 3:43 AM EDT [facility] Blood Venous blood specimen / Unknown Venipuncture / Unknown 06/21/2025 3:25 AM EDT 06/21/2025 3:33 AM EDT us Dyllan Paul MD LAB BLOOD ORDERABLES Final Re sult [facility] [address] [place] [address] * (ABNORMAL) Prothrombin Time/INR (06/21/2025 3:25 AM EDT) Prothrombin Time 18.7(H) 12.0 - 14.3 sec LAB COAGULATION METHOD 06/21/2025 4:27 AM EDT [facility] INR 1.5(H) 0.9 - 1.1 LAB COAGULATION METHOD 06/21/2025 4:27 AM EDT [facility] Blood Venous blood specimen / Unknown Venipuncture / Unknown 06/21/2025 3:25 AM EDT 06/21/2025 3:32 AM EDT Narrative [facility] - 06/21/2025 4:27 AM EDT OPTIMAL INR RANGES FOR PATIENT ON ORAL ANTICOAGULANT THERAPY Prevention of venous thromboembolism INR 2.0 to 3.0 In patients with heart disease: Atrial fibrillation INR 2.0 to 3.0 Valvular heart disease INR 2.0 to 3.0 Tissue heart valves INR 2.0 to 3.0 Mechanical prosthetic valves INR 2.5 to 3.5 Prevention of recurrent AK INR 2.5 to 3.5 Dyllan Paul MD LAB BLOOD ORDERABLES Final Re sult Performing Organization Address [facility] de Phone Number [facility] [address] [place] [address] * Creatinine, Drain Fluid (06/20/2025 1:43 PM EDT) Creatinine, Fluid 1.35 mg/dL 06/20/2025 3:10 PM EDT [facility] Fluid Drainage fluid specimen / Unknown 06/20/2025 1:43 PM EDT 06/20/2025 2:15 PM EDT Narrative [facility] - 06/20/2025 3:10 PM EDT Reference Values: No established reference interval. Results should be interpreted in comparison to the concentration in blood and in conjunction with the clinical context. This test was developed and its performance characteristics determined by [facility]. The U.[place]. Food and Drug Administration has not approved or cleared this test; however, FDA clearance or approval is not currently required for clinical use. The results are not intended to be used as the sole means for clinical diagnosis or patient management decisions. Interpretation: A body fluid to plasma ratio >1.0 suggests the presence of urine in the sample. Dyllan Paul MD LAB BODY FLUIDS AND STOOLS OR DERABLES Final Result Performing Organization Address [facility] de Phone Number [facility] [address] [place] [address] * (ABNORMAL) Hemogram (CBC) (06/20/2025 11:12 AM EDT) WBC Count 14.75(H) 3.70 - 10.30 10*3/uL LAB HEMATOLOGY METHOD 06/20/2025 11:31 AM EDT [facility] RBC Count 3.67(L) 4.60 - 6.10 10*6/uL LAB HEMATOLOGY METHOD 06/20/2025 11:31 AM EDT [facility] HGB 12.2(L) 13.7 - 17.5 g/dL LAB HEMATOLOGY METHOD 06/20/2025 11:31 AM EDT [facility] HCT 35.0(L) 40.0 - 51.0 % LAB HEMATOLOGY METHOD 06/20/2025 11:31 AM EDT [facility] Platelet Count 103(L) 155 - 369 10*3/uL LAB HEMATOLOGY METHOD 06/20/2025 11:31 AM EDT [facility] MCV 95 79 - 98 fL LAB HEMATOLOGY METHOD 06/20/2025 11:31 AM EDT [facility] MCH 33.2(H) 26.0 - 32.0 pg LAB HEMATOLOGY METHOD 06/20/2025 11:31 AM EDT [facility] MCHC 34.9 30.7 - 35.5 g/dL LAB HEMATOLOGY METHOD 06/20/2025 11:31 AM EDT [facility] RDW 15.9(H) 11.5 - 14.5 % LAB HEMATOLOGY METHOD 06/20/2025 11:31 AM EDT [facility] MPV 11.4 8.8 - 12.5 fL LAB HEMATOLOGY METHOD 06/20/2025 11:31 AM EDT [facility] nRBC 0.1(H) <=0.0 per 100 WBCs LAB HEMATOLOGY METHOD 06/20/2025 11:31 AM EDT [facility] Blood Venous blood specimen / Unknown Venipuncture / Unknown 06/20/2025 11:12 AM EDT 06/20/2025 11:19 AM EDT us Dyllan Paul MD LAB BLOOD ORDERABLES Final Re sult [facility] [address] [place] [address] * (ABNORMAL) Blood gas panel, venous (06/20/2025 11:12 AM EDT) pH, Venous 7.44(H) 7.32 - 7.43 LAB HEMATOLOGY METHOD 06/20/2025 11:23 AM EDT [facility] pCO2, Venous 38(L) 40 - 55 mmHg LAB HEMATOLOGY METHOD 06/20/2025 11:23 AM EDT [facility] pO2, Venous 60(H) 25 - 40 mmHg LAB HEMATOLOGY METHOD 06/20/2025 11:23 AM EDT [facility] SO2, Measured, Venous 88(H) 65 - 80 % LAB HEMATOLOGY METHOD 06/20/2025 11:23 AM EDT [facility] Base Excess, Venous 1.5 -2.0 - 3.0 mmol/L LAB HEMATOLOGY METHOD 06/20/2025 11:23 AM EDT [facility] Bicarbonate, Calculated, Venous 26 22 - 26 mmol/L LAB HEMATOLOGY METHOD 06/20/2025 11:23 AM EDT [facility] Hematocrit, Whole Blood 32.5(L) 40.0 - 51.0 % LAB HEMATOLOGY METHOD 06/20/2025 11:23 AM EDT [facility] Sodium, Whole Blood 135(L) 136 - 145 mmol/L LAB HEMATOLOGY METHOD 06/20/2025 11:23 AM EDT [facility] Potassium, Whole Blood 2.8(L) 3.6 - 4.9 mmol/L LAB HEMATOLOGY METHOD 06/20/2025 11:23 AM EDT [facility] Chloride, Whole Blood 101 97 - 107 mmol/L LAB HEMATOLOGY METHOD 06/20/2025 11:23 AM EDT [facility] Glucose, Whole Blood 164(H) 74 - 99 mg/dL LAB HEMATOLOGY METHOD 06/20/2025 11:23 AM EDT [facility] Lactate, Venous, Whole Blood 2.5(H) 0.5 - 2.2 mmol/L LAB HEMATOLOGY METHOD 06/20/2025 11:23 AM EDT [facility] Ionized Calcium, Whole Blood 4.4(L) 4.6 - 5.1 mg/dL LAB HEMATOLOGY METHOD 06/20/2025 11:23 AM EDT [facility] Blood Venous blood specimen / Unknown Venipuncture / Unknown 06/20/2025 11:12 AM EDT 06/20/2025 11:20 AM EDT us Dyllan Paul MD LAB BLOOD ORDERABLES Final Re sult [facility] [address] * [place] Cystogram (06/20/2025 10:01 AM EDT) Anatomical Region Laterality Modality Bladder Digital Radiogra phy Addenda Addendum by Abner King MD on 07/04/2025 7:08 PM EDT Addendum: ADDENDUM: By electronically signing this report, I, the attending physician, attest that I was present for the entire procedure(s) and agree with the final edited report. Drafted by Abner King MD on 07/04/2025 7:08 PM Final report signed by Abner King MD on 07/04/2025 7:08 PM Impressions 06/20/2025 1:42 PM EDT No evidence of anastomotic leak. Redemonstration of at least 3 bladder calculi. Trabeculated bladder contour likely secondary to chronic urinary outlet obstruction. CRITICAL RESULT: No. COMMUNICATION: Per this written report. By electronically signing this report, I, the attending physician, attest that I have personally reviewed the images/data for the above examination(s) and agree with the final edited report. Drafted by Jamie Alvarez MD on 06/20/2025 11:20 AM Final report signed by Abner King MD on 06/20/2025 1:42 PM Narrative 06/20/2025 1:42 PM EDT CLINICAL INDICATION: S/p prostatectomy evaluate for leak TECHNIQUE: 250 mL of water soluble contrast was instilled into urinary bladder using gravity drip technique per Martinez catheter placed using strict aseptic technique. Fluoroscopy Time: 1.1 minutes. COMPARISON: CT abdomen and pelvis from April 03, 2025. Abdominal radiograph from June 14, 2025. FINDINGS: On inkjet operator images, there are 3 rounded calcifications overlying the pubic symphysis measuring approximately 14 mm in maximal diameter that were correlated with bladder calculi within the dependent portion of the bladder on comparison CT from April 03, 2025. Surgical drain is noted within the pelvis. On postcontrast images, there is no evidence of extraluminal contrast to suggest anastomotic leak. The bladder contour is trabeculated. No evidence of vesicoureteral reflux. Of note, the patient voided around the catheter after approximately 225 cc of contrast was instilled into the bladder, which limited further bladder distention. On postdrainage image, there is again no evidence for extraluminal contrast material. Procedure Note Abner King MD - 06/20/2025 CLINICAL INDICATION: S/p prostatectomy evaluate for leak TECHNIQUE: 250 mL of water soluble contrast was instilled into urinary bladder usinggravity drip technique per Martinez catheter placed using strict aseptictechnique. Fluoroscopy Time: 1.1 minutes. COMPARISON: CT abdomen and pelvis from April 03, 2025. Abdominal radiograph from 2024. FINDINGS: On inkjet operator images, there are 3 rounded calcifications overlying the pubicsymphysis measuring approximately 14 mm in maximal diameter that werecorrelated with bladder calculi within the dependent portion of thebladder on comparison CT from April 03, 2025. Surgical drain is noted withinthe pelvis. On postcontrast images, there is no evidence of extraluminal contrast tosuggest anastomotic leak. The bladder contour is trabeculated. No evidenceof vesicoureteral reflux. Of note, the patient voided around the catheterafter approximately 225 cc of contrast was instilled into the bladder,which limited further bladder distention. On postdrainage image, there is again no evidence for extraluminalcontrast material. IMPRESSION: No evidence of anastomotic leak. Redemonstration of at least 3 bladder calculi. Trabeculated bladder contour likely secondary to chronic urinary outletobstruction. CRITICAL RESULT: No. COMMUNICATION: Per this written report. By electronically signing this report, I, the attending physician, attestthat I have personally reviewed the images/data for the aboveexamination(s) and agree with the final edited report. Drafted by Jamie Alvarez MD on 06/20/2025 11:20 AM Final report signed by Abner King MD on 06/20/2025 1:42 PM Dyllan Paul MD IMG FLUOROSCOPY PROCEDURES Ed ited Result - Final * (ABNORMAL) Comprehensive metabolic panel (06/20/2025 2:07 AM EDT) Glucose, Plasma 84 74 - 99 mg/dL 06/20/2025 2:42 AM EDT [facility] BUN, Plasma 50(H) 8 - 23 mg/dL 06/20/2025 2:42 AM EDT [facility] Creatinine, Plasma 1.28(H) 0.70 - 1.20 mg/dL 06/20/2025 2:42 AM EDT [facility] BUN/Creatinine Ratio 39 06/20/2025 2:42 AM EDT [facility] Sodium, Plasma 139 136 - 145 mmol/L 06/20/2025 2:42 AM EDT [facility] Potassium, Plasma 4.2 3.6 - 4.9 mmol/L 06/20/2025 2:42 AM EDT [facility] Comment:Hemolyzed, result ma y be falsely increased. Chloride, Plasma 105 97 - 107 mmol/L 06/20/2025 2:42 AM EDT [facility] CO2, Plasma 21(L) 22 - 29 mmol/L 06/20/2025 2:42 AM EDT [facility] Anion Gap 13 6 - 16 mmol/L 06/20/2025 2:42 AM EDT [facility] Total Calcium, Plasma 8.6(L) 8.9 - 10.2 mg/dL 06/20/2025 2:42 AM EDT [facility] Total Protein 4.9(L) 6.3 - 7.9 g/dL 06/20/2025 2:42 AM EDT [facility] Albumin, Plasma 2.5(L) 3.5 - 5.2 g/dL 06/20/2025 2:42 AM EDT [facility] AST, Plasma 83(H) 10 - 50 U/L 06/20/2025 2:42 AM EDT [facility] Comment:Hemolyzed, result ma y be falsely increased. ALT, Plasma 36 10 - 50 U/L 06/20/2025 2:42 AM EDT [facility] Comment:Hemolyzed, result ma y be falsely increased or decreased. Alkaline Phosphatase, Plasma 133(H) 40 - 115 U/L 06/20/2025 2:42 AM EDT [facility] Total Bilirubin, Plasma 2.8(H) 0.2 - 1.1 mg/dL 06/20/2025 2:42 AM EDT [facility] eGFRcr 60.2 mL/min/1.7 3m*2 06/20/2025 2:42 AM EDT [facility] Comment:Reported eGFRcr in m L/min/1.73m2 is based the CKD-EPI 2020 equation that does not use a race coefficient. Blood Venous blood specimen / Unknown Venipuncture / Unknown 06/20/2025 2:07 AM EDT 06/20/2025 2:14 AM EDT Dyllan Paul MD LAB BLOOD ORDERABLES Final Re sult Performing Organization Address [facility] Co de Phone Number [facility] [address] [place] [address] * (ABNORMAL) Phosphorus (06/20/2025 2:07 AM EDT) Phosphorus, Plasma 4.7(H) 2.5 - 4.5 mg/dL 06/20/2025 2:42 AM EDT [facility] Blood Venous blood specimen / Unknown Venipuncture / Unknown 06/20/2025 2:07 AM EDT 06/20/2025 2:14 AM EDT us Dyllan Paul MD LAB BLOOD ORDERABLES Final Re sult Performing Organization Address [facility] Co de Phone Number [facility] [address] [place] [address] * Magnesium (06/20/2025 2:07 AM EDT) Magnesium, Plasma 2.0 1.9 - 2.4 mg/dL 06/20/2025 2:42 AM EDT [facility] Blood Venous blood specimen / Unknown Venipuncture / Unknown 06/20/2025 2:07 AM EDT 06/20/2025 2:14 AM EDT us Dyllan Paul MD LAB BLOOD ORDERABLES Final Re sult Performing Organization Address City/[facility] Co de Phone Number [facility] [address] [place] [address] * (ABNORMAL) Prothrombin Time/INR (06/20/2025 2:07 AM EDT) Prothrombin Time 16.9(H) 12.0 - 14.3 sec LAB COAGULATION METHOD 06/20/2025 2:31 AM EDT [facility] INR 1.3(H) 0.9 - 1.1 LAB COAGULATION METHOD 06/20/2025 2:[address] [facility] Blood Venous blood specimen / Unknown Venipuncture / Unknown 06/20/2025 2:07 AM EDT 06/20/2025 2:14 AM EDT Narrative [facility] - 06/20/2025 2:31 AM EDT OPTIMAL INR RANGES FOR PATIENT ON ORAL ANTICOAGULANT THERAPY Prevention of venous thromboembolism INR 2.0 to 3.0 In patients with heart disease: Atrial fibrillation INR 2.0 to 3.0 Valvular heart disease INR 2.0 to 3.0 Tissue heart valves INR 2.0 to 3.0 Mechanical prosthetic valves INR 2.5 to 3.5 Prevention of recurrent AK INR 2.5 to 3.5 Dyllan Paul MD LAB BLOOD ORDERABLES Final Re sult Performing Organization Address [facility] Co de Phone Number [facility] [address] [place] [address] * Urinalysis Microscopic Examination (06/19/2025 2:16 PM EDT) Urine Urine specimen obtained by clean catch procedure / Unknown Non-blood Collection / Unknown 06/19/2025 2:16 PM EDT 06/19/2025 2:23 PM EDT Dyllan Paul MD LAB URINE ORDERABLES Final Re sult Performing Organization Address [facility] [place] [address] * Osmolality, urine (06/19/2025 2:16 PM EDT) Osmolality, Urine 645 50 - 1,200 mOsm/kg 06/19/2025 3:14 PM EDT [facility] Urine Urine specimen obtained by clean catch procedure / Unknown Non-blood Collection / Unknown 06/19/2025 2:16 PM EDT 06/19/2025 2:31 PM EDT us Dyllan Paul MD LAB URINE ORDERABLES Final Re sult Performing Organization Address [facility]/ZIP Co de Phone Number [facility] [address] [place] [address] * Creatinine, urine, random (06/19/2025 2:16 PM EDT) Creatinine, Urine 99 mg/dL 06/19/2025 3:06 PM EDT [facility] Urine Urine specimen obtained by clean catch procedure / Unknown Non-blood Collection / Unknown 06/19/2025 2:16 PM EDT 06/19/2025 2:22 PM EDT us Dyllan Paul MD LAB URINE ORDERABLES Final Re sult Performing Organization Address [facility] Co de Phone Number [facility] [address] [place] [address] * Sodium, urine, random (06/19/2025 2:16 PM EDT) Sodium, Urine <20 mmol/L 06/19/2025 3:06 PM EDT [facility] Urine Urine specimen obtained by clean catch procedure / Unknown Non-blood Collection / Unknown 06/19/2025 2:16 PM EDT 06/19/2025 2:22 PM EDT us Dyllan Paul MD LAB URINE ORDERABLES Final Re sult Performing Organization Address [facility] Co de Phone Number [facility] [address] [place] [address] * (ABNORMAL) Urinalysis with reflex microscopic (Culture NOT Included) (06/19/2025 2:16 PM EDT) Color, Urine Yellow LAB URINALYSIS - AUTOMATED METHOD 06/19/2025 2:33 PM EDT [facility] Clarity, Urine Clear LAB URINALYSIS - AUTOMATED METHOD 06/19/2025 2:33 PM EDT [facility] Spec Hindman, Urine 1.024 1.005 - 1.030 LAB URINALYSIS - AUTOMATED METHOD 06/19/2025 2:33 PM EDT [facility] pH, Urine 6.0 5.0 - 8.0 LAB URINALYSIS - AUTOMATED METHOD 06/19/2025 2:33 PM EDT [facility] Protein, Urine 30(A) Negative mg/dL LAB URINALYSIS - AUTOMATED METHOD 06/19/2025 2:33 PM EDT [facility] Glucose, Urine Negative Negative mg/dL LAB URINALYSIS - AUTOMATED METHOD 06/19/2025 2:33 PM EDT [facility] Ketones, Urine Trace(A) Negative mg/dL LAB URINALYSIS - AUTOMATED METHOD 06/19/2025 2:33 PM EDT [facility] Blood, Urine Large(A) Negative LAB URINALYSIS - AUTOMATED METHOD 06/19/2025 2:33 PM EDT [facility] Bilirubin, Urine Negative Negative LAB URINALYSIS - AUTOMATED METHOD 06/19/2025 2:33 PM EDT [facility] Urobilinogen, Urine 1.0 0.2 to 1.0 mg/dL LAB URINALYSIS - AUTOMATED METHOD 06/19/2025 2:33 PM EDT [facility] Leukocytes, Urine Small(A) Negative LAB URINALYSIS - AUTOMATED METHOD 06/19/2025 2:33 PM EDT [facility] Nitrite, Urine Negative Negative LAB URINALYSIS - AUTOMATED METHOD 06/19/2025 2:33 PM EDT [facility] RBC, Urine >50(A) 0 to 3 /HPF LAB URINALYSIS - AUTOMATED METHOD 06/19/2025 2:33 PM EDT [facility] WBC, Urine 6 - 10(A) 0 to 5 /HPF LAB URINALYSIS - AUTOMATED METHOD 06/19/2025 2:33 PM EDT [facility] Squamous Epithelial Cells 0 - 2 0 to 5 /HPF LAB URINALYSIS - AUTOMATED METHOD 06/19/2025 2:33 PM EDT [facility] Hyaline Casts 0 - 2 0 to 5 /LPF LAB URINALYSIS - AUTOMATED METHOD 06/19/2025 2:33 PM EDT [facility] Bacteria, Urine Negative Negative LAB URINALYSIS - AUTOMATED METHOD 06/19/2025 2:33 PM EDT [facility] Urine Urine specimen obtained by clean catch procedure / Unknown Non-blood Collection / Unknown 06/19/2025 2:16 PM EDT 06/19/2025 2:23 PM EDT us Dyllan Paul MD LAB URINE ORDERABLES Final Re sult [facility] [address] [place] [address] * (ABNORMAL) POCT glucose meter (06/19/2025 12:41 PM EDT) POCT Glucose 127(H) 74 - 99 mg/dL 06/19/2025 12:43 PM EDT [facility] Comment:Accuracy of a glucos e result obtained from a capillary whole blood specimen relies upon adequate, non-compromised capillary blood flow. If the capillary glucose result is not consistent with the patient's clinical signs and symptoms, glucose testing should be repeated with either an arterial or venous sample on the glucometer or sent to the main labortory for testing. Comment 06/19/2025 12:43 PM EDT [facility] Maintenance Equipment Operator ID Sanjuana Sapp 06/19/2025 12:43 PM EDT [facility] Device ID [id number] 06/19/2025 12:43 PM EDT [facility] Specimen Type POC Capillary 06/19/2025 12:43 PM EDT [facility] Blood Capillary blood specimen / Unknown 06/19/2025 12:41 PM EDT 06/19/2025 12:43 PM EDT us Dyllan Paul MD LAB POINT OF CARE TE ST DOCKED DEVICE UNSOLICITED RESULTS Final Result [facility] [address] [place] [address] * (ABNORMAL) POCT glucose meter (06/19/2025 9:58 AM EDT) POCT Glucose 125(H) 74 - 99 mg/dL 06/19/2025 10:00 AM EDT [facility] Comment:Accuracy of a glucos e result obtained from a capillary whole blood specimen relies upon adequate, non-compromised capillary blood flow. If the capillary glucose result is not consistent with the patient's clinical signs and symptoms, glucose testing should be repeated with either an arterial or venous sample on the glucometer or sent to the main labortory for testing. Comment 06/19/2025 10:00 AM EDT [facility] Maintenance Equipment Operator ID Sanjuana Sapp 06/19/2025 10:00 AM EDT [facility] Device ID [id number] 06/19/2025 10:00 AM EDT [facility] Specimen Type POC Capillary 06/19/2025 10:00 AM EDT [facility] Blood Capillary blood specimen / Unknown 06/19/2025 9:58 AM EDT 06/19/2025 10:00 AM EDT Dyllan Paul MD LAB POINT OF CARE TE ST DOCKED DEVICE UNSOLICITED RESULTS Final Result Performing Organization Address City/State/[facility] Co de Phone Number [facility] [address] [place] [address] * (ABNORMAL) POCT glucose meter (06/19/2025 5:49 AM EDT) [facility] POCT Glucose 141(H) 74 - 99 mg/dL 06/19/2025 5:51 AM EDT [facility] Comment:Accuracy of a glucos e result obtained from a capillary whole blood specimen relies upon adequate, non-compromised capillary blood flow. If the capillary glucose result is not consistent with the patient's clinical signs and symptoms, glucose testing should be repeated with either an arterial or venous sample on the glucometer or sent to the main labortory for testing. Comment 06/19/2025 5:51 AM EDT [facility] Maintenance Equipment Operator ID Kathy Palmer 06/19/2025 5:51 AM EDT [facility] Device ID [id number] 06/19/2025 5:51 AM EDT [facility] Specimen Type POC Capillary 06/19/2025 5:51 AM EDT [facility] Blood Capillary blood specimen / Unknown 06/19/2025 5:49 AM EDT 06/19/2025 5:51 AM EDT us Dyllan Paul MD LAB POINT OF CARE TE ST DOCKED DEVICE UNSOLICITED RESULTS Final Result Performing Organization Address City/[facility]/ZIP Co de Phone Number [facility] [address] [place] [address] * (ABNORMAL) Hepatic function panel (06/19/2025 1:00 AM EDT) Direct Bilirubin, Plasma 1.1(H) <=0.3 mg/dL 06/19/2025 6:48 PM EDT [facility] Comment:Hemolyzed, result ma y be falsely decreased. Alkaline Phosphatase, Plasma 179(H) 40 - 115 U/L 06/19/2025 6:48 PM EDT [facility] Total Bilirubin, Plasma 2.5(H) 0.2 - 1.1 mg/dL 06/19/2025 6:48 PM EDT [facility] Albumin, Plasma 2.7(L) 3.5 - 5.2 g/dL 06/19/2025 6:48 PM EDT [facility] Total Protein 5.1(L) 6.3 - 7.9 g/dL 06/19/2025 6:48 PM EDT [facility] ALT, Plasma 33 10 - 50 U/L 06/19/2025 6:48 PM EDT [facility] AST, Plasma 59(H) 10 - 50 U/L 06/19/2025 6:48 PM EDT [facility] Comment:Hemolyzed, result ma y be falsely increased. Blood Venous blood specimen / Unknown Venipuncture / Unknown 06/19/2025 1:00 AM EDT 06/19/2025 1:04 AM EDT us Anna Armas MD LAB BLOOD ORDERABLES Final Resul t Performing Organization Address City/[facility]/ZIP Co de Phone Number [facility] [address] [place] [address] * (ABNORMAL) Cystatin C (06/19/2025 1:00 AM EDT) Cystatin C 1.9(H) 0.61 - 0.95 mg/L 06/19/2025 2:07 PM EDT [facility] Blood Venous blood specimen / Unknown Venipuncture / Unknown 06/19/2025 1:00 AM EDT 06/19/2025 1:04 AM EDT us Dyllan Paul MD LAB BLOOD ORDERABLES Final Re sult Performing Organization Address City/[facility]/ZIP Co de Phone Number [facility] [address] [place] [address] * (ABNORMAL) Osmolality (06/19/2025 1:00 AM EDT) Osmolality, Serum 311(H) 280 - 301 mOsm/Kg 06/19/2025 1:05 PM EDT [facility] Blood Venous blood specimen / Unknown Venipuncture / Unknown 06/19/2025 1:00 AM EDT 06/19/2025 1:04 AM EDT us Dyllan Paul MD LAB BLOOD ORDERABLES Final Re sult Performing Organization Address [facility] [place] [address] * Phosphorus (06/19/2025 1:00 AM EDT) Phosphorus, Plasma 3.8 2.5 - 4.5 mg/dL 06/19/2025 1:33 AM EDT [facility] Blood Venous blood specimen / Unknown Venipuncture / Unknown 06/19/2025 1:00 AM EDT 06/19/2025 1:04 AM EDT us Dyllan Paul MD LAB BLOOD ORDERABLES Final Re sult Performing Organization Address [facility] [place] [address] * Magnesium (06/19/2025 1:00 AM EDT) Magnesium, Plasma 2.0 1.9 - 2.4 mg/dL 06/19/2025 1:33 AM EDT [facility] Blood Venous blood specimen / Unknown Venipuncture / Unknown 06/19/2025 1:00 AM EDT 06/19/2025 1:04 AM EDT us Dyllan Paul MD LAB BLOOD ORDERABLES Final Re sult [facility] [address] [place] [address] * (ABNORMAL) Basic metabolic panel (06/19/2025 1:00 AM EDT) Glucose, Plasma 131(H) 74 - 99 mg/dL 06/19/2025 1:33 AM EDT [facility] BUN, Plasma 51(H) 8 - 23 mg/dL 06/19/2025 1:33 AM EDT [facility] Creatinine, Plasma 1.29(H) 0.70 - 1.20 mg/dL 06/19/2025 1:33 AM EDT [facility] BUN/Creatinine Ratio 40 06/19/2025 1:33 AM EDT [facility] Sodium, Plasma 146(H) 136 - 145 mmol/L 06/19/2025 1:33 AM EDT [facility] Potassium, Plasma 3.6 3.6 - 4.9 mmol/L 06/19/2025 1:33 AM EDT [facility] Chloride, Plasma 111(H) 97 - 107 mmol/L 06/19/2025 1:33 AM EDT [facility] CO2, Plasma 25 22 - 29 mmol/L 06/19/2025 1:33 AM EDT [facility] Anion Gap 10 6 - 16 mmol/L 06/19/2025 1:33 AM EDT [facility] Total Calcium, Plasma 8.9 8.9 - 10.2 mg/dL 06/19/2025 1:33 AM EDT [facility] eGFRcr 59.6 mL/min/1.7 3m*2 06/19/2025 1:33 AM EDT [facility] Comment:Reported eGFRcr in m L/min/1.73m2 is based the CKD-EPI 2020 equation that does not use a race coefficient. Blood Venous blood specimen / Unknown Venipuncture / Unknown 06/19/2025 1:00 AM EDT 06/19/2025 1:04 AM EDT us Dyllan Paul MD LAB BLOOD ORDERABLES Final Re sult [facility] [address] [place] [address] * (ABNORMAL) Hemogram (CBC) (06/19/2025 1:00 AM EDT) WBC Count 13.62(H) 3.70 - 10.30 10*3/uL LAB HEMATOLOGY METHOD 06/19/2025 1:11 AM EDT [facility] RBC Count 3.72(L) 4.60 - 6.10 10*6/uL LAB HEMATOLOGY METHOD 06/19/2025 1:11 AM EDT [facility] HGB 12.1(L) 13.7 - 17.5 g/dL LAB HEMATOLOGY METHOD 06/19/2025 1:11 AM EDT [facility] HCT 36.3(L) 40.0 - 51.0 % LAB HEMATOLOGY METHOD 06/19/2025 1:11 AM EDT [facility] Platelet Count 90(L) 155 - 369 10*3/uL LAB HEMATOLOGY METHOD 06/19/2025 1:11 AM EDT [facility] MCV 98 79 - 98 fL LAB HEMATOLOGY METHOD 06/19/2025 1:11 AM EDT [facility] MCH 32.5(H) 26.0 - 32.0 pg LAB HEMATOLOGY METHOD 06/19/2025 1:11 AM EDT [facility] MCHC 33.3 30.7 - 35.5 g/dL LAB HEMATOLOGY METHOD 06/19/2025 1:11 AM EDT [facility] RDW 16.5(H) 11.5 - 14.5 % LAB HEMATOLOGY METHOD 06/19/2025 1:11 AM EDT [facility] MPV 12.4 8.8 - 12.5 fL LAB HEMATOLOGY METHOD 06/19/2025 1:11 AM EDT [facility] nRBC 0.1(H) <=0.0 per 100 WBCs LAB HEMATOLOGY METHOD 06/19/2025 1:11 AM EDT [facility] Blood Venous blood specimen / Unknown Venipuncture / Unknown 06/19/2025 1:00 AM EDT 06/19/2025 1:04 AM EDT us Dyllan Paul MD LAB BLOOD ORDERABLES Final Re sult Performing Organization Address [facility] Co de Phone Number [facility] [address] [place] [address] * Ammonia, Plasma (06/19/2025 1:00 AM EDT) Pathologist [facility] Ammonia 45 11 - 51 umol/L 06/19/2025 1:29 AM EDT [facility] Comment:Improper specimen marquez ndling may falsely increase results. Blood Venous blood specimen / Unknown Venipuncture / Unknown 06/19/2025 1:00 AM EDT 06/19/2025 1:04 AM EDT us Michelle Iniguez APRN LAB BLOOD ORDERABLES Final R esult Performing Organization Address [facility] de Phone Number [facility] [address] [place] [address] * (ABNORMAL) POCT glucose meter (06/19/2025 12:59 AM EDT) Pathologist [facility] POCT Glucose 123(H) 74 - 99 mg/dL 06/19/2025 1:03 AM EDT [facility] Comment:Accuracy of a glucos e result obtained from a capillary whole blood specimen relies upon adequate, non-compromised capillary blood flow. If the capillary glucose result is not consistent with the patient's clinical signs and symptoms, glucose testing should be repeated with either an arterial or venous sample on the glucometer or sent to the main labortory for testing. Comment 06/19/2025 1:03 AM EDT [facility] Maintenance Equipment Operator ID Kathy Palmer 06/19/2025 1:03 AM EDT [facility] Device ID [id number] 06/19/2025 1:03 AM EDT [facility] Specimen Type POC Venous 06/19/2025 1:03 AM EDT [facility] Blood Venous blood specimen / Unknown 06/19/2025 12:59 AM EDT 06/19/2025 1:03 AM EDT Dyllan Paul MD LAB POINT OF CARE TE ST DOCKED DEVICE UNSOLICITED RESULTS Final Result [facility] [address] [place] [address] * (ABNORMAL) POCT glucose meter (06/18/2025 5:37 PM EDT) POCT Glucose 150(H) 74 - 99 mg/dL 06/18/2025 5:39 PM EDT [facility] Comment:Accuracy of a glucos e result obtained from a capillary whole blood specimen relies upon adequate, non-compromised capillary blood flow. If the capillary glucose result is not consistent with the patient's clinical signs and symptoms, glucose testing should be repeated with either an arterial or venous sample on the glucometer or sent to the main labortory for testing. Comment 06/18/2025 5:39 PM EDT [facility] Maintenance Equipment Operator ID Lesia Booth 5:39 PM EDT [facility] Device ID [id number] 06/18/2025 5:39 PM EDT [facility] Specimen Type POC Capillary 06/18/2025 5:39 PM EDT [facility] Blood Capillary blood specimen / Unknown 06/18/2025 5:37 PM EDT 06/18/2025 5:39 PM EDT Dyllan Paul MD LAB POINT OF CARE TE ST DOCKED DEVICE UNSOLICITED RESULTS Final Result [facility] [address] [place] [address] * (ABNORMAL) POCT glucose meter (06/18/2025 12:29 PM EDT) POCT Glucose 153(H) 74 - 99 mg/dL 06/18/2025 12:30 PM EDT [facility] Comment:Accuracy of a glucos e result obtained from a capillary whole blood specimen relies upon adequate, non-compromised capillary blood flow. If the capillary glucose result is not consistent with the patient's clinical signs and symptoms, glucose testing should be repeated with either an arterial or venous sample on the glucometer or sent to the main labortory for testing. Comment 06/18/2025 12:30 PM EDT [facility] Maintenance Equipment Operator ID Lesia Booth 12:30 PM EDT [facility] Device ID [id number] 06/18/2025 12:30 PM EDT [facility] Specimen Type POC Capillary 06/18/2025 12:30 PM EDT [facility] Blood Capillary blood specimen / Unknown 06/18/2025 12:29 PM EDT 06/18/2025 12:30 PM EDT us Dyllan Paul MD LAB POINT OF CARE TE ST DOCKED DEVICE UNSOLICITED RESULTS Final Result Performing Organization Address City/State/[facility] Phone Number [facility] [address] [place] [address] * [place] CRITICAL CARE, E/M 30-74 MINUTES (06/18/2025 9:49 AM EDT) Narrative Lillian Carrera PA - 06/18/2025 9:49 AM EDT Lillian Carrera PA 06/18/2025 9:56 AM Critical Care Performed by: Lillian Carrera PA Authorized by: Lillian Carrera PA Critical care provider statement: Critical care time (minutes): 45 Critical care was time spent personally by me on the following activities: Development of treatment plan with patient or surrogate, examination of patient, discussions with consultants, evaluation of patient's response to treatment, ordering and review of radiographic studies, ordering and review of laboratory studies and ordering and performing treatments and interventions Comments: The patient is critically ill with: Prostate cancer, Electrolyte abnormalities, renal calculi, Hypertension, and liver cirrhosis. They require complex decision making. The patient was seen on rounds with critical care physician, Dr. Russell Richardson and they are in agreement with the plan of care. Pharmacy, respiratory and nursing services were present on rounds. us Lillian RODRIGUEZ IN CLINIC/BEDSIDE ORDERABLE S Final Result * (ABNORMAL) POCT glucose meter (06/18/2025 5:50 AM EDT) POCT Glucose 146(H) 74 - 99 mg/dL 06/18/2025 5:52 AM EDT [facility] Comment:Accuracy of a glucos e result obtained from a capillary whole blood specimen relies upon adequate, non-compromised capillary blood flow. If the capillary glucose result is not consistent with the patient's clinical signs and symptoms, glucose testing should be repeated with either an arterial or venous sample on the glucometer or sent to the main labortory for testing. Comment 06/18/2025 5:52 AM EDT [facility] Maintenance Equipment Operator ID Aurea Schaefer 06/18/2025 5:52 AM EDT [facility] Device ID [id number] 06/18/2025 5:52 AM EDT [facility] Specimen Type POC Arterial 06/18/2025 5:52 AM EDT [facility] Blood Arterial blood specimen / Unknown 06/18/2025 5:50 AM EDT 06/18/2025 5:52 AM EDT Dyllan Paul MD LAB POINT OF CARE TE ST DOCKED DEVICE UNSOLICITED RESULTS Final Result [facility] [address] [place] [address] * (ABNORMAL) Blood gas panel, arterial (06/18/2025 5:47 AM EDT) pH, Arterial 7.48(H) 7.31 - 7.42 LAB HEMATOLOGY METHOD 06/18/2025 5:59 AM EDT [facility] pCO2, Arterial 36 32 - 45 mmHg LAB HEMATOLOGY METHOD 06/18/2025 5:59 AM EDT [facility] pO2, Arterial 63(L) >70 mmHg LAB HEMATOLOGY METHOD 06/18/2025 5:59 AM EDT [facility] SO2, Measured, Arterial 94 94 - 98 % LAB HEMATOLOGY METHOD 06/18/2025 5:59 AM EDT [facility] Base Excess, Arterial 3.3(H) -2.0 - 3.0 mmol/L LAB HEMATOLOGY METHOD 06/18/2025 5:59 AM EDT [facility] Bicarbonate, Calculated, Arterial 27(H) 22 - 26 mmol/L LAB HEMATOLOGY METHOD 06/18/2025 5:59 AM EDT [facility] Hematocrit, Whole Blood 37.9(L) 40.0 - 51.0 % LAB HEMATOLOGY METHOD 06/18/2025 5:59 AM EDT [facility] Sodium, Whole Blood 153(H) 136 - 145 mmol/L LAB HEMATOLOGY METHOD 06/18/2025 5:59 AM EDT [facility] Potassium, Whole Blood 4.3 3.6 - 4.9 mmol/L LAB HEMATOLOGY METHOD 06/18/2025 5:59 AM EDT [facility] Chloride, Whole Blood 119(H) 97 - 107 mmol/L LAB HEMATOLOGY METHOD 06/18/2025 5:59 AM EDT [facility] Glucose, Whole Blood 138(H) 74 - 99 mg/dL LAB HEMATOLOGY METHOD 06/18/2025 5:59 AM EDT [facility] Ionized Calcium, Whole Blood 5.1 4.6 - 5.1 mg/dL LAB HEMATOLOGY METHOD 06/18/2025 5:59 AM EDT [facility] Lactate, Arterial, Whole Blood 1.6 0.5 - 1.6 mmol/L LAB HEMATOLOGY METHOD 06/18/2025 5:59 AM EDT [facility] Blood Arterial blood specimen / Unknown Arterial Puncture / Unknown 06/18/2025 5:47 AM EDT 06/18/2025 5:57 AM EDT us Michelle Iniguez SEMI [employer]IVER LAB BLOOD ORDERABLES Final R esult [facility] [address] [place] [address] * (ABNORMAL) POCT glucose meter (06/18/2025 12:10 AM EDT) POCT Glucose 152(H) 74 - 99 mg/dL 06/18/2025 12:12 AM EDT [facility] Comment:Accuracy of a glucos e result obtained from a capillary whole blood specimen relies upon adequate, non-compromised capillary blood flow. If the capillary glucose result is not consistent with the patient's clinical signs and symptoms, glucose testing should be repeated with either an arterial or venous sample on the glucometer or sent to the main labortory for testing. Comment 06/18/2025 12:12 AM EDT [facility] Maintenance Equipment Operator ID Aurea Schaefer 06/18/2025 12:12 AM EDT [facility] Device ID [id number] 06/18/2025 12:12 AM EDT [facility] Specimen Type POC Arterial 06/18/2025 12:12 AM EDT [facility] Blood Arterial blood specimen / Unknown 06/18/2025 12:10 AM EDT 06/18/2025 12:12 AM EDT us Dyllan Paul MD LAB POINT OF CARE TE ST DOCKED DEVICE UNSOLICITED RESULTS Final Result Performing Organization Address [facility] Co de Phone Number [facility] [address] [place] [address] * Phosphorus (06/17/2025 11:58 PM EDT) Phosphorus, Plasma 3.1 2.5 - 4.5 mg/dL 06/18/2025 12:32 AM EDT [facility] Blood Venous blood specimen / Unknown Venipuncture / Unknown 06/17/2025 11:58 PM EDT 06/18/2025 12:05 AM EDT us Dyllan Paul MD LAB BLOOD ORDERABLES Final Re sult [facility] [address] [place] [address] * Magnesium (06/17/2025 11:58 PM EDT) Magnesium, Plasma 2.3 1.9 - 2.4 mg/dL 06/18/2025 12:32 AM EDT [facility] Blood Venous blood specimen / Unknown Venipuncture / Unknown 06/17/2025 11:58 PM EDT 06/18/2025 12:05 AM EDT us Dyllan Paul MD LAB BLOOD ORDERABLES Final Re sult [facility] [address] [place] [address] * (ABNORMAL) Basic metabolic panel (06/17/2025 11:58 PM EDT) Glucose, Plasma 160(H) 74 - 99 mg/dL 06/18/2025 12:32 AM EDT [facility] BUN, Plasma 52(H) 8 - 23 mg/dL 06/18/2025 12:32 AM EDT [facility] Creatinine, Plasma 1.23(H) 0.70 - 1.20 mg/dL 06/18/2025 12:32 AM EDT [facility] BUN/Creatinine Ratio 42 06/18/2025 12:32 AM EDT [facility] Sodium, Plasma 151(H) 136 - 145 mmol/L 06/18/2025 12:32 AM EDT [facility] Potassium, Plasma 3.8 3.6 - 4.9 mmol/L 06/18/2025 12:32 AM EDT [facility] Chloride, Plasma 118(H) 97 - 107 mmol/L 06/18/2025 12:32 AM EDT [facility] CO2, Plasma 24 22 - 29 mmol/L 06/18/2025 12:32 AM EDT [facility] Anion Gap 9 6 - 16 mmol/L 06/18/2025 12:32 AM EDT [facility] Total Calcium, Plasma 9.0 8.9 - 10.2 mg/dL 06/18/2025 12:32 AM EDT [facility] eGFRcr 63.2 mL/min/1.7 3m*2 06/18/2025 12:32 AM EDT [facility] Comment:Reported eGFRcr in m L/min/1.73m2 is based the CKD-EPI 2020 equation that does not use a race coefficient. Blood Venous blood specimen / Unknown Venipuncture / Unknown 06/17/2025 11:58 PM EDT 06/18/2025 12:05 AM EDT Dyllan Paul MD LAB BLOOD ORDERABLES Final Re sult [facility] [address] [place] [address] * (ABNORMAL) Hemogram (CBC) (06/17/2025 11:58 PM EDT) WBC Count 12.86(H) 3.70 - 10.30 10*3/uL LAB HEMATOLOGY METHOD 06/18/2025 12:15 AM EDT [facility] RBC Count 3.74(L) 4.60 - 6.10 10*6/uL LAB HEMATOLOGY METHOD 06/18/2025 12:15 AM EDT [facility] HGB 12.0(L) 13.7 - 17.5 g/dL LAB HEMATOLOGY METHOD 06/18/2025 12:15 AM EDT [facility] HCT 35.2(L) 40.0 - 51.0 % LAB HEMATOLOGY METHOD 06/18/2025 12:15 AM EDT [facility] Platelet Count 93(L) 155 - 369 10*3/uL LAB HEMATOLOGY METHOD 06/18/2025 12:15 AM EDT [facility] MCV 94 79 - 98 fL LAB HEMATOLOGY METHOD 06/18/2025 12:15 AM EDT [facility] MCH 32.1(H) 26.0 - 32.0 pg LAB HEMATOLOGY METHOD 06/18/2025 12:15 AM EDT [facility] MCHC 34.1 30.7 - 35.5 g/dL LAB HEMATOLOGY METHOD 06/18/2025 12:15 AM EDT [facility] RDW 16.2(H) 11.5 - 14.5 % LAB HEMATOLOGY METHOD 06/18/2025 12:15 AM EDT [facility] MPV 12.6(H) 8.8 - 12.5 fL LAB HEMATOLOGY METHOD 06/18/2025 12:15 AM EDT [facility] nRBC 0.2(H) <=0.0 per 100 WBCs LAB HEMATOLOGY METHOD 06/18/2025 12:15 AM EDT [facility] Blood Venous blood specimen / Unknown Venipuncture / Unknown 06/17/2025 11:58 PM EDT 06/18/2025 12:05 AM EDT us Dyllan Paul MD LAB BLOOD ORDERABLES Final Re sult Performing Organization Address City/[facility]/ZIP Co de Phone Number [facility] [address] [place] [address] * (ABNORMAL) Ammonia, Plasma (06/17/2025 11:58 PM EDT) Ammonia 55(H) 11 - 51 umol/L 06/18/2025 12:29 AM EDT [facility] Blood Venous blood specimen / Unknown Venipuncture / Unknown 06/17/2025 11:58 PM EDT 06/18/2025 12:04 AM EDT us Michelle Iniguez APRN LAB BLOOD ORDERABLES Final R esult Performing Organization Address [facility]/ZIP Co de Phone Number [facility] [address] [place] [address] * (ABNORMAL) POCT glucose meter (06/17/2025 5:41 PM EDT) POCT Glucose 167(H) 74 - 99 mg/dL 06/17/2025 5:43 PM EDT [facility] Comment:Accuracy of a glucos e result obtained from a capillary whole blood specimen relies upon adequate, non-compromised capillary blood flow. If the capillary glucose result is not consistent with the patient's clinical signs and symptoms, glucose testing should be repeated with either an arterial or venous sample on the glucometer or sent to the main labortory for testing. Comment 06/17/2025 5:43 PM EDT [facility] Maintenance Equipment Operator ID Lesia Booth 5:43 PM EDT [facility] Device ID [id number] 06/17/2025 5:43 PM EDT [facility] Specimen Type POC Capillary 06/17/2025 5:43 PM EDT [facility] Blood Capillary blood specimen / Unknown 06/17/2025 5:41 PM EDT 06/17/2025 5:43 PM EDT us Dyllan Paul MD LAB POINT OF CARE TE ST DOCKED DEVICE UNSOLICITED RESULTS Final Result [facility] [address] [place] [address] * (ABNORMAL) Blood gas panel, arterial (06/17/2025 3:55 PM EDT) pH, Arterial 7.45(H) 7.31 - 7.42 LAB HEMATOLOGY METHOD 06/17/2025 4:06 PM EDT [facility] pCO2, Arterial 37 32 - 45 mmHg LAB HEMATOLOGY METHOD 06/17/2025 4:06 PM EDT [facility] pO2, Arterial 82 >70 mmHg LAB HEMATOLOGY METHOD 06/17/2025 4:06 PM EDT [facility] SO2, Measured, Arterial 97 94 - 98 % LAB HEMATOLOGY METHOD 06/17/2025 4:06 PM EDT [facility] Base Excess, Arterial 1.7 -2.0 - 3.0 mmol/L LAB HEMATOLOGY METHOD 06/17/2025 4:06 PM EDT [facility] Bicarbonate, Calculated, Arterial 26 22 - 26 mmol/L LAB HEMATOLOGY METHOD 06/17/2025 4:06 PM EDT [facility] Hematocrit, Whole Blood 38.7(L) 40.0 - 51.0 % LAB HEMATOLOGY METHOD 06/17/2025 4:06 PM EDT [facility] Sodium, Whole Blood 148(H) 136 - 145 mmol/L LAB HEMATOLOGY METHOD 06/17/2025 4:06 PM EDT [facility] Potassium, Whole Blood 4.3 3.6 - 4.9 mmol/L LAB HEMATOLOGY METHOD 06/17/2025 4:06 PM EDT [facility] Chloride, Whole Blood 114(H) 97 - 107 mmol/L LAB HEMATOLOGY METHOD 06/17/2025 4:06 PM EDT [facility] Glucose, Whole Blood 177(H) 74 - 99 mg/dL LAB HEMATOLOGY METHOD 06/17/2025 4:06 PM EDT [facility] Ionized Calcium, Whole Blood 4.9 4.6 - 5.1 mg/dL LAB HEMATOLOGY METHOD 06/17/2025 4:06 PM EDT [facility] Lactate, Arterial, Whole Blood 1.9(H) 0.5 - 1.6 mmol/L LAB HEMATOLOGY METHOD 06/17/2025 4:06 PM EDT [facility] Blood Arterial blood specimen / Unknown Arterial Puncture / Unknown 06/17/2025 3:55 PM EDT 06/17/2025 4:02 PM EDT us Michelle Hameeds [employer] LAB BLOOD ORDERABLES Final R esult [facility] [address] [place] [address] * CT Head wo IV Contrast (06/17/2025 12:17 PM EDT) Anatomical Region Laterality Modality Head Computed Tomogra phy Impressions 06/17/2025 12:54 PM EDT 1. No acute intracranial abnormality. 2. Senescent changes, as described. CRITICAL RESULT: No. COMMUNICATION: Per this written report. Drafted by Vira Siddiqui MD on 06/17/2025 12:49 PM Final report signed by Vira Siddiqui MD on 06/17/2025 12:54 PM Narrative 06/17/2025 12:54 PM EDT CLINICAL INDICATION: Mental status change, unknown cause TECHNIQUE: Spiral axial CT images of the head were obtained without contrast administration. Total DLP (Dose-Length Product): 1081.99 mGy.cm. Please note: The reported value represents the total of one or more individual components during the CT acquisition on this date and at this time, and as such, the same value may appear in more than one CT report depending on the interpreting/reporting physicians. COMPARISON: None. FINDINGS: Diagnostic Quality: Adequate. The ventricles and sulci are enlarged consistent with brain parenchymal volume loss. There is no acute large cortical infarct, intracranial hemorrhage or large mass on this noncontrast study. Soft Tissues: No significant soft tissue swelling is present. Skull: There are no calvarial destructive lesions or fractures. Sinuses and Mastoids: There is a small mucous retention cyst in right maxillary sinus. The mastoid air cells are clear. Enteric tube is visible in left nasal cavity. Procedure Note Vira Siddiqui MD - 06/17/2025 CLINICAL INDICATION: Mental status change, unknown cause TECHNIQUE: Spiral axial CT images of the head were obtained without contrastadministration. Total DLP (Dose-Length Product): 1081.99 mGy.cm. Please note: The reportedvalue represents the total of one or more individual components during theCT acquisition on this date and at this time, and as such, the same valuemay appear in more than one CT report depending on theinterpreting/reporting physicians. COMPARISON: None. FINDINGS: Diagnostic Quality: Adequate. The ventricles and sulci are enlarged consistent with brain parenchymalvolume loss. There is no acute large cortical infarct, intracranial hemorrhage or largemass on this noncontrast study. Soft Tissues: No significant soft tissue swelling is present. Skull: There are no calvarial destructive lesions or fractures. Sinuses and Mastoids: There is a small mucous retention cyst in rightmaxillary sinus. The mastoid air cells are clear. Enteric tube is visiblein left nasal cavity. IMPRESSION: 1.No acute intracranial abnormality. 2.Senescent changes, as described. CRITICAL RESULT: No. COMMUNICATION: Per this written report. Drafted by Vira Siddiqui MD on 06/17/2025 12:49 PM Final report signed by Vira Siddiqui MD on 06/17/2025 12:54 PM Lillian RODRIGUEZ IMG CT PROCEDURES Final Res ult * (ABNORMAL) Blood gas panel, arterial (06/17/2025 11:44 AM EDT) pH, Arterial 7.47(H) 7.31 - 7.42 LAB HEMATOLOGY METHOD 06/17/2025 11:56 AM EDT [facility] pCO2, Arterial 37 32 - 45 mmHg LAB HEMATOLOGY METHOD 06/17/2025 11:56 AM EDT [facility] pO2, Arterial 80 >70 mmHg LAB HEMATOLOGY METHOD 06/17/2025 11:56 AM EDT [facility] SO2, Measured, Arterial 97 94 - 98 % LAB HEMATOLOGY METHOD 06/17/2025 11:56 AM EDT [facility] Base Excess, Arterial 3.3(H) -2.0 - 3.0 mmol/L LAB HEMATOLOGY METHOD 06/17/2025 11:56 AM EDT [facility] Bicarbonate, Calculated, Arterial 27(H) 22 - 26 mmol/L LAB HEMATOLOGY METHOD 06/17/2025 11:56 AM EDT [facility] Hematocrit, Whole Blood 35.9(L) 40.0 - 51.0 % LAB HEMATOLOGY METHOD 06/17/2025 11:56 AM EDT [facility] Sodium, Whole Blood 147(H) 136 - 145 mmol/L LAB HEMATOLOGY METHOD 06/17/2025 11:56 AM EDT [facility] Potassium, Whole Blood 3.6 3.6 - 4.9 mmol/L LAB HEMATOLOGY METHOD 06/17/2025 11:56 AM EDT [facility] Chloride, Whole Blood 112(H) 97 - 107 mmol/L LAB HEMATOLOGY METHOD 06/17/2025 11:56 AM EDT [facility] Glucose, Whole Blood 153(H) 74 - 99 mg/dL LAB HEMATOLOGY METHOD 06/17/2025 11:56 AM EDT [facility] Ionized Calcium, Whole Blood 4.9 4.6 - 5.1 mg/dL LAB HEMATOLOGY METHOD 06/17/2025 11:56 AM EDT [facility] Lactate, Arterial, Whole Blood 1.4 0.5 - 1.6 mmol/L LAB HEMATOLOGY METHOD 06/17/2025 11:56 AM EDT [facility] Blood Arterial blood specimen / Unknown Arterial Puncture / Unknown 06/17/2025 11:44 AM EDT 06/17/2025 11:54 AM EDT us Michelle Iniguez APRN LAB BLOOD ORDERABLES Final R esult Performing Organization Address City/State/[facility] Co de Phone Number [facility] [address] [place] [address] * (ABNORMAL) POCT glucose meter (06/17/2025 11:42 AM EDT) POCT Glucose 154(H) 74 - 99 mg/dL 06/17/2025 11:44 AM EDT [facility] Comment:Accuracy of a glucos e result obtained from a capillary whole blood specimen relies upon adequate, non-compromised capillary blood flow. If the capillary glucose result is not consistent with the patient's clinical signs and symptoms, glucose testing should be repeated with either an arterial or venous sample on the glucometer or sent to the main labortory for testing. Comment 06/17/2025 11:44 AM EDT [facility] Maintenance Equipment Operator ID Lesia Booth 11:44 AM EDT [facility] Device ID [id number] 06/17/2025 11:44 AM EDT [facility] Specimen Type POC Arterial 06/17/2025 11:44 AM EDT [facility] Blood Arterial blood specimen / Unknown 06/17/2025 11:42 AM EDT 06/17/2025 11:44 AM EDT us Dyllan Paul MD LAB POINT OF CARE TE ST DOCKED DEVICE UNSOLICITED RESULTS Final Result Performing Organization Address City/[facility]/ZIP Co de Phone Number [facility] [address] [place] [address] * (ABNORMAL) Ammonia, Plasma (06/17/2025 8:55 AM EDT) Ammonia 89(H) 11 - 51 umol/L 06/17/2025 9:26 AM EDT [facility] Blood Venous blood specimen / Unknown Venipuncture / Unknown 06/17/2025 8:55 AM EDT 06/17/2025 9:01 AM EDT us Lillian RODRIGUEZ LAB BLOOD ORDERABLES Final Result [facility] [address] [place] [address] * (ABNORMAL) Blood gas panel, arterial (06/17/2025 8:55 AM EDT) pH, Arterial 7.47(H) 7.31 - 7.42 LAB HEMATOLOGY METHOD 06/17/2025 9:05 AM EDT [facility] pCO2, Arterial 37 32 - 45 mmHg LAB HEMATOLOGY METHOD 06/17/2025 9:05 AM EDT [facility] pO2, Arterial 89 >70 mmHg LAB HEMATOLOGY METHOD 06/17/2025 9:05 AM EDT [facility] SO2, Measured, Arterial 98 94 - 98 % LAB HEMATOLOGY METHOD 06/17/2025 9:05 AM EDT [facility] Base Excess, Arterial 3.5(H) -2.0 - 3.0 mmol/L LAB HEMATOLOGY METHOD 06/17/2025 9:05 AM EDT [facility] Bicarbonate, Calculated, Arterial 27(H) 22 - 26 mmol/L LAB HEMATOLOGY METHOD 06/17/2025 9:05 AM EDT [facility] Hematocrit, Whole Blood 37.1(L) 40.0 - 51.0 % LAB HEMATOLOGY METHOD 06/17/2025 9:05 AM EDT [facility] Sodium, Whole Blood 145 136 - 145 mmol/L LAB HEMATOLOGY METHOD 06/17/2025 9:05 AM EDT [facility] Potassium, Whole Blood 3.6 3.6 - 4.9 mmol/L LAB HEMATOLOGY METHOD 06/17/2025 9:05 AM EDT [facility] Chloride, Whole Blood 114(H) 97 - 107 mmol/L LAB HEMATOLOGY METHOD 06/17/2025 9:05 AM EDT [facility] Glucose, Whole Blood 154(H) 74 - 99 mg/dL LAB HEMATOLOGY METHOD 06/17/2025 9:05 AM EDT [facility] Ionized Calcium, Whole Blood 4.9 4.6 - 5.1 mg/dL LAB HEMATOLOGY METHOD 06/17/2025 9:05 AM EDT [facility] Lactate, Arterial, Whole Blood 1.4 0.5 - 1.6 mmol/L LAB HEMATOLOGY METHOD 06/17/2025 9:05 AM EDT [facility] Blood Arterial blood specimen / Unknown Arterial Puncture / Unknown 06/17/2025 8:55 AM EDT 06/17/2025 9:02 AM EDT us Michelle Iniguez APRN LAB BLOOD ORDERABLES Final R esult [facility] [address] [place] [address] * GA CRITICAL CARE, E/M 30-74 MINUTES (06/17/2025 8:36 AM EDT) Narrative Lillian Carrera PA - 06/17/2025 8:36 AM EDT Lillian Carrera PA 06/17/2025 10:56 AM Critical Care Performed by: Lillian Carrera PA Authorized by: Lillian Carrera PA Critical care provider statement: Critical care time (minutes): 55 Critical care was time spent personally by me on the following activities: Development of treatment plan with patient or surrogate, discussions with primary provider, evaluation of patient's response to treatment, examination of patient, review of old charts, ventilator management, ordering and review of radiographic studies, ordering and review of laboratory studies, ordering and performing treatments and interventions and obtaining history from patient or surrogate Comments: The patient is critically ill with: Prostate cancer, On mechanical ventilation, hypocalcemia, Electrolyte abnormalities, renal calculi, Hypertension, and liver cirrhosis, metabolic encephalopathy. They require complex decision making. The patient was seen on rounds with critical care physician, Dr. Russell Richardson and they are in agreement with the plan of care. Pharmacy, respiratory and nursing services were present on rounds. us Lillian RODRIGUEZ IN CLINIC/BEDSIDE ORDERABLE S Final Result * XR Chest 1 View (06/17/2025 5:34 AM EDT) Anatomical Region Laterality Modality Chest Digital Radiogra phy Impressions 06/17/2025 9:45 AM EDT No significant interval change CRITICAL RESULT: No. COMMUNICATION: Per this written report. By electronically signing this report, I, the attending physician, attest that I have personally reviewed the images/data for the above examination(s) and agree with the final edited report. Drafted by Caleb De La Cruz MD on 06/17/2025 8:04 AM Final report signed by Melissa Fleming MD on 06/17/2025 9:45 AM Narrative 06/17/2025 9:45 AM EDT CLINICAL INDICATION: lung field eval TECHNIQUE: XR CHEST 1 VIEW COMPARISON: 06/16/2025 FINDINGS: Stable support devices. Prominence of the right hilum, likely positional. Low lung volumes. No interval change in bilateral diffuse interstitial thickening. No pleural effusion or pneumothorax. Normal size cardiac silhouette. Nonaggressive appearing sclerotic lesion in the proximal left humerus. Procedure Note Melissa Fleming MD - 06/17/2025 CLINICAL INDICATION: lung field eval TECHNIQUE: XR CHEST 1 VIEW COMPARISON: 06/16/2025 FINDINGS: Stable support devices. Prominence of the right hilum, likely positional.Low lung volumes. No interval change in bilateral diffuse interstitialthickening. No pleural effusion or pneumothorax. Normal size cardiacsilhouette. Nonaggressive appearing sclerotic lesion in the proximal lefthumerus. IMPRESSION: No significant interval change CRITICAL RESULT: No. COMMUNICATION: Per this written report. By electronically signing this report, I, the attending physician, attestthat I have personally reviewed the images/data for the aboveexamination(s) and agree with the final edited report. Drafted by Caleb De La Cruz MD on 06/17/2025 8:04 AM Final report signed by Melissa Fleming MD on 06/17/2025 9:45 AM Corry Doss APRN, DNP IMG XR PROCEDURES Fi nal Result * (ABNORMAL) POCT glucose meter (06/17/2025 5:28 AM EDT) POCT Glucose 163(H) 74 - 99 mg/dL 06/17/2025 5:30 AM EDT [facility] Comment:Accuracy of a glucos e result obtained from a capillary whole blood specimen relies upon adequate, non-compromised capillary blood flow. If the capillary glucose result is not consistent with the patient's clinical signs and symptoms, glucose testing should be repeated with either an arterial or venous sample on the glucometer or sent to the main labortory for testing. Comment 06/17/2025 5:30 AM EDT [facility] Maintenance Equipment Operator ID Nri Murcia 5:30 AM EDT [facility] Device ID [id number] 06/17/2025 5:30 AM EDT [facility] Specimen Type POC Capillary 06/17/2025 5:30 AM EDT [facility] Blood Capillary blood specimen / Unknown 06/17/2025 5:28 AM EDT 06/17/2025 5:30 AM EDT Dyllan Paul MD LAB POINT OF CARE TE ST DOCKED DEVICE UNSOLICITED RESULTS Final Result [facility] [address] [place] [address] * (ABNORMAL) Ammonia, Plasma (06/17/2025 3:30 AM EDT) Ammonia 83(H) 11 - 51 umol/L 06/17/2025 4:04 AM EDT [facility] Comment:Improper specimen marquez ndling may falsely increase results. Blood Venous blood specimen / Unknown Venipuncture / Unknown 06/17/2025 3:30 AM EDT 06/17/2025 3:34 AM EDT us Michelle Iniguez APRN LAB BLOOD ORDERABLES Final R esult Performing Organization Address City/[facility]/ZIP Co de Phone Number [facility] [address] [place] [address] * (ABNORMAL) Blood gas panel, arterial (06/17/2025 3:30 AM EDT) pH, Arterial 7.46(H) 7.31 - 7.42 LAB HEMATOLOGY METHOD 06/17/2025 3:36 AM EDT [facility] pCO2, Arterial 38 32 - 45 mmHg LAB HEMATOLOGY METHOD 06/17/2025 3:36 AM EDT [facility] pO2, Arterial 123 >70 mmHg LAB HEMATOLOGY METHOD 06/17/2025 3:36 AM EDT [facility] SO2, Measured, Arterial 100(H) 94 - 98 % LAB HEMATOLOGY METHOD 06/17/2025 3:36 AM EDT [facility] Base Excess, Arterial 2.9 -2.0 - 3.0 mmol/L LAB HEMATOLOGY METHOD 06/17/2025 3:36 AM EDT [facility] Bicarbonate, Calculated, Arterial 27(H) 22 - 26 mmol/L LAB HEMATOLOGY METHOD 06/17/2025 3:36 AM EDT [facility] Hematocrit, Whole Blood 36.8(L) 40.0 - 51.0 % LAB HEMATOLOGY METHOD 06/17/2025 3:36 AM EDT [facility] Sodium, Whole Blood 147(H) 136 - 145 mmol/L LAB HEMATOLOGY METHOD 06/17/2025 3:36 AM EDT [facility] Potassium, Whole Blood 3.5(L) 3.6 - 4.9 mmol/L LAB HEMATOLOGY METHOD 06/17/2025 3:36 AM EDT [facility] Chloride, Whole Blood 111(H) 97 - 107 mmol/L LAB HEMATOLOGY METHOD 06/17/2025 3:36 AM EDT [facility] Glucose, Whole Blood 187(H) 74 - 99 mg/dL LAB HEMATOLOGY METHOD 06/17/2025 3:36 AM EDT [facility] Ionized Calcium, Whole Blood 4.9 4.6 - 5.1 mg/dL LAB HEMATOLOGY METHOD 06/17/2025 3:36 AM EDT [facility] Lactate, Arterial, Whole Blood 1.7(H) 0.5 - 1.6 mmol/L LAB HEMATOLOGY METHOD 06/17/2025 3:36 AM EDT [facility] Blood Arterial blood specimen / Unknown Arterial Puncture / Unknown 06/17/2025 3:30 AM EDT 06/17/2025 3:34 AM EDT us Michelle Iniguez APRN LAB BLOOD ORDERABLES Final R esult Performing Organization Address City/[facility]/ZIP Co de Phone Number [facility] [address] [place] [address] * (ABNORMAL) Free T4, Plasma (06/17/2025 12:24 AM EDT) Free T4, Plasma 0.7(L) 0.8 - 1.7 ng/dL 06/17/2025 8:59 AM EDT [facility] Blood Venous blood specimen / Unknown Venipuncture / Unknown 06/17/2025 12:24 AM EDT 06/17/2025 12:36 AM EDT us Lillian RODRIGUEZ LAB BLOOD ORDERABLES Final Result Performing Organization Address City/[facility]/ZIP Co de Phone Number [facility] [address] [place] [address] * Thyroid Stimulating Hormone, Plasma (06/17/2025 12:24 AM EDT) Thyroid Stimulating Hormone, Plasma 1.19 0.40 - 4.20 uIU/mL 06/17/2025 8:59 AM EDT [facility] Blood Venous blood specimen / Unknown Venipuncture / Unknown 06/17/2025 12:24 AM EDT 06/17/2025 12:36 AM EDT us Lillian RODRIGUEZ LAB BLOOD ORDERABLES Final Result [facility] [address] [place] [address] * (ABNORMAL) Blood gas panel, arterial (06/17/2025 12:24 AM EDT) pH, Arterial 7.46(H) 7.31 - 7.42 LAB HEMATOLOGY METHOD 06/17/2025 12:41 AM EDT [facility] pCO2, Arterial 39 32 - 45 mmHg LAB HEMATOLOGY METHOD 06/17/2025 12:41 AM EDT [facility] pO2, Arterial 90 >70 mmHg LAB HEMATOLOGY METHOD 06/17/2025 12:41 AM EDT [facility] SO2, Measured, Arterial 98 94 - 98 % LAB HEMATOLOGY METHOD 06/17/2025 12:41 AM EDT [facility] Base Excess, Arterial 3.3(H) -2.0 - 3.0 mmol/L LAB HEMATOLOGY METHOD 06/17/2025 12:41 AM EDT [facility] Bicarbonate, Calculated, Arterial 27(H) 22 - 26 mmol/L LAB HEMATOLOGY METHOD 06/17/2025 12:41 AM EDT [facility] Hematocrit, Whole Blood 36.5(L) 40.0 - 51.0 % LAB HEMATOLOGY METHOD 06/17/2025 12:41 AM EDT [facility] Sodium, Whole Blood 148(H) 136 - 145 mmol/L LAB HEMATOLOGY METHOD 06/17/2025 12:41 AM EDT [facility] Potassium, Whole Blood 3.7 3.6 - 4.9 mmol/L LAB HEMATOLOGY METHOD 06/17/2025 12:41 AM EDT [facility] Chloride, Whole Blood 112(H) 97 - 107 mmol/L LAB HEMATOLOGY METHOD 06/17/2025 12:41 AM EDT [facility] Glucose, Whole Blood 159(H) 74 - 99 mg/dL LAB HEMATOLOGY METHOD 06/17/2025 12:41 AM EDT [facility] Ionized Calcium, Whole Blood 4.8 4.6 - 5.1 mg/dL LAB HEMATOLOGY METHOD 06/17/2025 12:41 AM EDT [facility] Lactate, Arterial, Whole Blood 1.7(H) 0.5 - 1.6 mmol/L LAB HEMATOLOGY METHOD 06/17/2025 12:41 AM EDT [facility] Blood Arterial blood specimen / Unknown Arterial Puncture / Unknown 06/17/2025 12:24 AM EDT 06/17/2025 12:34 AM EDT us Michelle Iniguez APRN LAB BLOOD ORDERABLES Final R esult Performing Organization Address City/[facility]/ZIP Co de Phone Number [facility] [address] [place] [address] * Phosphorus (06/17/2025 12:24 AM EDT) Phosphorus, Plasma 2.7 2.5 - 4.5 mg/dL 06/17/2025 1:04 AM EDT [facility] Blood Venous blood specimen / Unknown Venipuncture / Unknown 06/17/2025 12:24 AM EDT 06/17/2025 12:36 AM EDT us Dyllan Paul MD LAB BLOOD ORDERABLES Final Re sult [facility] [address] [place] [address] * Magnesium (06/17/2025 12:24 AM EDT) Magnesium, Plasma 2.3 1.9 - 2.4 mg/dL 06/17/2025 1:04 AM EDT [facility] Blood Venous blood specimen / Unknown Venipuncture / Unknown 06/17/2025 12:24 AM EDT 06/17/2025 12:36 AM EDT us Dyllan Paul MD LAB BLOOD ORDERABLES Final Re sult [facility] [address] [place] [address] * (ABNORMAL) Basic metabolic panel (06/17/2025 12:24 AM EDT) Glucose, Plasma 163(H) 74 - 99 mg/dL 06/17/2025 1:04 AM EDT [facility] BUN, Plasma 51(H) 8 - 23 mg/dL 06/17/2025 1:04 AM EDT [facility] Creatinine, Plasma 1.37(H) 0.70 - 1.20 mg/dL 06/17/2025 1:04 AM EDT [facility] BUN/Creatinine Ratio 37 06/17/2025 1:04 AM EDT [facility] Sodium, Plasma 146(H) 136 - 145 mmol/L 06/17/2025 1:04 AM EDT [facility] Potassium, Plasma 4.1 3.6 - 4.9 mmol/L 06/17/2025 1:04 AM EDT [facility] Chloride, Plasma 112(H) 97 - 107 mmol/L 06/17/2025 1:04 AM EDT [facility] CO2, Plasma 24 22 - 29 mmol/L 06/17/2025 1:04 AM EDT [facility] Anion Gap 10 6 - 16 mmol/L 06/17/2025 1:04 AM EDT [facility] Total Calcium, Plasma 8.7(L) 8.9 - 10.2 mg/dL 06/17/2025 1:04 AM EDT [facility] eGFRcr 55.5 mL/min/1.7 3m*2 06/17/2025 1:04 AM EDT [facility] Comment:Reported eGFRcr in m L/min/1.73m2 is based the CKD-EPI 2020 equation that does not use a race coefficient. Blood Venous blood specimen / Unknown Venipuncture / Unknown 06/17/2025 12:24 AM EDT 06/17/2025 12:36 AM EDT us Dyllan Paul MD LAB BLOOD ORDERABLES Final Re sult [facility] [address] [place] [address] * (ABNORMAL) Hemogram (CBC) (06/17/2025 12:24 AM EDT) WBC Count 13.51(H) 3.70 - 10.30 10*3/uL LAB HEMATOLOGY METHOD 06/17/2025 12:45 AM EDT [facility] RBC Count 3.70(L) 4.60 - 6.10 10*6/uL LAB HEMATOLOGY METHOD 06/17/2025 12:45 AM EDT [facility] HGB 12.1(L) 13.7 - 17.5 g/dL LAB HEMATOLOGY METHOD 06/17/2025 12:45 AM EDT [facility] HCT 34.3(L) 40.0 - 51.0 % LAB HEMATOLOGY METHOD 06/17/2025 12:45 AM EDT [facility] Platelet Count 99(L) 155 - 369 10*3/uL LAB HEMATOLOGY METHOD 06/17/2025 12:45 AM EDT [facility] MCV 93 79 - 98 fL LAB HEMATOLOGY METHOD 06/17/2025 12:45 AM EDT [facility] MCH 32.7(H) 26.0 - 32.0 pg LAB HEMATOLOGY METHOD 06/17/2025 12:45 AM EDT [facility] MCHC 35.3 30.7 - 35.5 g/dL LAB HEMATOLOGY METHOD 06/17/2025 12:45 AM EDT [facility] RDW 15.8(H) 11.5 - 14.5 % LAB HEMATOLOGY METHOD 06/17/2025 12:45 AM EDT [facility] MPV 12.8(H) 8.8 - 12.5 fL LAB HEMATOLOGY METHOD 06/17/2025 12:45 AM EDT [facility] nRBC 0.1(H) <=0.0 per 100 WBCs LAB HEMATOLOGY METHOD 06/17/2025 12:45 AM EDT [facility] Blood Venous blood specimen / Unknown Venipuncture / Unknown 06/17/2025 12:24 AM EDT 06/17/2025 12:38 AM EDT Dyllan Paul MD LAB BLOOD ORDERABLES Final Re sult Performing Organization Address [facility] Co de Phone Number [facility] [address] [place] [address] * (ABNORMAL) POCT glucose meter (06/17/2025 12:15 AM EDT) POCT Glucose 151(H) 74 - 99 mg/dL 06/17/2025 12:17 AM EDT [facility] Comment:Accuracy of a glucos e result obtained from a capillary whole blood specimen relies upon adequate, non-compromised capillary blood flow. If the capillary glucose result is not consistent with the patient's clinical signs and symptoms, glucose testing should be repeated with either an arterial or venous sample on the glucometer or sent to the main labortory for testing. Comment 06/17/2025 12:17 AM EDT [facility] Maintenance Equipment Operator ID Nir Murcia 12:17 AM EDT [facility] Device ID [id number] 06/17/2025 12:17 AM EDT [facility] Specimen Type POC Capillary 06/17/2025 12:17 AM EDT [facility] Blood Capillary blood specimen / Unknown 06/17/2025 12:15 AM EDT 06/17/2025 12:17 AM EDT Dyllan Paul MD LAB POINT OF CARE TE ST DOCKED DEVICE UNSOLICITED RESULTS Final Result Performing Organization Address City/[facility] Co de Phone Number [facility] [address] [place] [address] * (ABNORMAL) Blood gas panel, arterial (06/16/2025 8:32 PM EDT) pH, Arterial 7.48(H) 7.31 - 7.42 LAB HEMATOLOGY METHOD 06/16/2025 8:39 PM EDT [facility] pCO2, Arterial 37 32 - 45 mmHg LAB HEMATOLOGY METHOD 06/16/2025 8:39 PM EDT [facility] pO2, Arterial 99 >70 mmHg LAB HEMATOLOGY METHOD 06/16/2025 8:39 PM EDT [facility] SO2, Measured, Arterial 99(H) 94 - 98 % LAB HEMATOLOGY METHOD 06/16/2025 8:39 PM EDT [facility] Base Excess, Arterial 4.0(H) -2.0 - 3.0 mmol/L LAB HEMATOLOGY METHOD 06/16/2025 8:39 PM EDT [facility] Bicarbonate, Calculated, Arterial 28(H) 22 - 26 mmol/L LAB HEMATOLOGY METHOD 06/16/2025 8:39 PM EDT [facility] Hematocrit, Whole Blood 36.1(L) 40.0 - 51.0 % LAB HEMATOLOGY METHOD 06/16/2025 8:39 PM EDT [facility] Sodium, Whole Blood 145 136 - 145 mmol/L LAB HEMATOLOGY METHOD 06/16/2025 8:39 PM EDT [facility] Potassium, Whole Blood 3.4(L) 3.6 - 4.9 mmol/L LAB HEMATOLOGY METHOD 06/16/2025 8:39 PM EDT [facility] Chloride, Whole Blood 110(H) 97 - 107 mmol/L LAB HEMATOLOGY METHOD 06/16/2025 8:39 PM EDT [facility] Glucose, Whole Blood 171(H) 74 - 99 mg/dL LAB HEMATOLOGY METHOD 06/16/2025 8:39 PM EDT [facility] Ionized Calcium, Whole Blood 4.7 4.6 - 5.1 mg/dL LAB HEMATOLOGY METHOD 06/16/2025 8:39 PM EDT [facility] Lactate, Arterial, Whole Blood 1.5 0.5 - 1.6 mmol/L LAB HEMATOLOGY METHOD 06/16/2025 8:39 PM EDT [facility] Blood Arterial blood specimen / Unknown Arterial Puncture / Unknown 06/16/2025 8:32 PM EDT 06/16/2025 8:36 PM EDT us Michelle Iniguez APRN LAB BLOOD ORDERABLES Final R esult [facility] [address] [place] [address] * (ABNORMAL) POCT glucose meter (06/16/2025 5:31 PM EDT) POCT Glucose 181(H) 74 - 99 mg/dL 06/16/2025 5:33 PM EDT [facility] Comment:Accuracy of a glucos e result obtained from a capillary whole blood specimen relies upon adequate, non-compromised capillary blood flow. If the capillary glucose result is not consistent with the patient's clinical signs and symptoms, glucose testing should be repeated with either an arterial or venous sample on the glucometer or sent to the main labortory for testing. Comment 06/16/2025 5:33 PM EDT [facility] Maintenance Equipment Operator ID Agatha Dasilva 06/16/2025 5:33 PM EDT [facility] Device ID [id number] 06/16/2025 5:33 PM EDT [facility] Specimen Type POC Arterial 06/16/2025 5:33 PM EDT [facility] Blood Arterial blood specimen / Unknown 06/16/2025 5:31 PM EDT 06/16/2025 5:33 PM EDT Dyllan Paul MD LAB POINT OF CARE TE ST DOCKED DEVICE UNSOLICITED RESULTS Final Result Performing Organization Address City/[facility] Co de Phone Number [facility] [address] [place] [address] * (ABNORMAL) Ammonia, Plasma (06/16/2025 5:21 PM EDT) Pathologist [facility] Ammonia 135(H) 11 - 51 umol/L 06/16/2025 6:06 PM EDT [facility] Blood Venous blood specimen / Unknown Venipuncture / Unknown 06/16/2025 5:21 PM EDT 06/16/2025 5:30 PM EDT us Michelle Iniguez APRN LAB BLOOD ORDERABLES Final R esult Performing Organization Address City/[facility]/ZIP Co de Phone Number [facility] [address] [place] [address] * (ABNORMAL) Comprehensive metabolic panel (06/16/2025 5:21 PM EDT) Glucose, Plasma 189(H) 74 - 99 mg/dL 06/16/2025 6:13 PM EDT [facility] BUN, Plasma 53(H) 8 - 23 mg/dL 06/16/2025 6:13 PM EDT [facility] Creatinine, Plasma 1.39(H) 0.70 - 1.20 mg/dL 06/16/2025 6:13 PM EDT [facility] BUN/Creatinine Ratio 38 06/16/2025 6:13 PM EDT [facility] Sodium, Plasma 145 136 - 145 mmol/L 06/16/2025 6:13 PM EDT [facility] Potassium, Plasma 3.6 3.6 - 4.9 mmol/L 06/16/2025 6:13 PM EDT [facility] Chloride, Plasma 111(H) 97 - 107 mmol/L 06/16/2025 6:13 PM EDT [facility] CO2, Plasma 24 22 - 29 mmol/L 06/16/2025 6:13 PM EDT [facility] Anion Gap 10 6 - 16 mmol/L 06/16/2025 6:13 PM EDT [facility] Total Calcium, Plasma 8.5(L) 8.9 - 10.2 mg/dL 06/16/2025 6:13 PM EDT [facility] Total Protein 4.7(L) 6.3 - 7.9 g/dL 06/16/2025 6:13 PM EDT [facility] Albumin, Plasma 2.7(L) 3.5 - 5.2 g/dL 06/16/2025 6:13 PM EDT [facility] AST, Plasma 48 10 - 50 U/L 06/16/2025 6:13 PM EDT [facility] ALT, Plasma 24 10 - 50 U/L 06/16/2025 6:13 PM EDT [facility] Alkaline Phosphatase, Plasma 159(H) 40 - 115 U/L 06/16/2025 6:13 PM EDT [facility] Total Bilirubin, Plasma 2.8(H) 0.2 - 1.1 mg/dL 06/16/2025 6:13 PM EDT [facility] eGFRcr 54.5 mL/min/1.7 3m*2 06/16/2025 6:13 PM EDT [facility] Comment:Reported eGFRcr in m L/min/1.73m2 is based the CKD-EPI 2020 equation that does not use a race coefficient. Blood Venous blood specimen / Unknown Venipuncture / Unknown 06/16/2025 5:21 PM EDT 06/16/2025 5:41 PM EDT us Michelle Iniguez [employer] LAB BLOOD ORDERABLES Final R esult [facility] [address] [place] [address] * (ABNORMAL) Blood gas panel, arterial (06/16/2025 5:20 PM EDT) pH, Arterial 7.47(H) 7.31 - 7.42 LAB HEMATOLOGY METHOD 06/16/2025 5:45 PM EDT [facility] pCO2, Arterial 37 32 - 45 mmHg LAB HEMATOLOGY METHOD 06/16/2025 5:45 PM EDT [facility] pO2, Arterial 66(L) >70 mmHg LAB HEMATOLOGY METHOD 06/16/2025 5:45 PM EDT [facility] SO2, Measured, Arterial 94 94 - 98 % LAB HEMATOLOGY METHOD 06/16/2025 5:45 PM EDT [facility] Base Excess, Arterial 3.2(H) -2.0 - 3.0 mmol/L LAB HEMATOLOGY METHOD 06/16/2025 5:45 PM EDT [facility] Bicarbonate, Calculated, Arterial 27(H) 22 - 26 mmol/L LAB HEMATOLOGY METHOD 06/16/2025 5:45 PM EDT [facility] Hematocrit, Whole Blood 36.2(L) 40.0 - 51.0 % LAB HEMATOLOGY METHOD 06/16/2025 5:45 PM EDT [facility] Sodium, Whole Blood 142 136 - 145 mmol/L LAB HEMATOLOGY METHOD 06/16/2025 5:45 PM EDT [facility] Potassium, Whole Blood 3.4(L) 3.6 - 4.9 mmol/L LAB HEMATOLOGY METHOD 06/16/2025 5:45 PM EDT [facility] Chloride, Whole Blood 111(H) 97 - 107 mmol/L LAB HEMATOLOGY METHOD 06/16/2025 5:45 PM EDT [facility] Glucose, Whole Blood 185(H) 74 - 99 mg/dL LAB HEMATOLOGY METHOD 06/16/2025 5:45 PM EDT [facility] Ionized Calcium, Whole Blood 4.8 4.6 - 5.1 mg/dL LAB HEMATOLOGY METHOD 06/16/2025 5:45 PM EDT [facility] Lactate, Arterial, Whole Blood 1.8(H) 0.5 - 1.6 mmol/L LAB HEMATOLOGY METHOD 06/16/2025 5:45 PM EDT [facility] Blood Arterial blood specimen / Unknown Arterial Puncture / Unknown 06/16/2025 5:20 PM EDT 06/16/2025 5:43 PM EDT us Michelle Iniguez APRN LAB BLOOD ORDERABLES Final R esult Performing Organization Address City/State/[facility] Co de Phone Number [facility] [address] [place] [address] * (ABNORMAL) POCT glucose meter (06/16/2025 11:40 AM EDT) POCT Glucose 159(H) 74 - 99 mg/dL 06/16/2025 11:42 AM EDT [facility] Comment:Accuracy of a glucos e result obtained from a capillary whole blood specimen relies upon adequate, non-compromised capillary blood flow. If the capillary glucose result is not consistent with the patient's clinical signs and symptoms, glucose testing should be repeated with either an arterial or venous sample on the glucometer or sent to the main labortory for testing. Comment 06/16/2025 11:42 AM EDT [facility] Maintenance Equipment Operator ID Agatha Dasilva 06/16/2025 11:42 AM EDT [facility] Device ID [id number] 06/16/2025 11:42 AM EDT [facility] Specimen Type POC Arterial 06/16/2025 11:42 AM EDT [facility] Blood Arterial blood specimen / Unknown 06/16/2025 11:40 AM EDT 06/16/2025 11:42 AM EDT us Dyllan Paul MD LAB POINT OF CARE TE ST DOCKED DEVICE UNSOLICITED RESULTS Final Result [facility] [address] [place] [address] * GA CRITICAL CARE, E/M 30-74 MINUTES (06/16/2025 10:30 AM EDT) Narrative Lillian Carrera PA - 06/16/2025 10:30 AM EDT Lillian Carrera PA 06/16/2025 1:21 PM Critical Care Performed by: Lillian Carrera PA Authorized by: Lillian Carrera PA Critical care provider statement: Critical care time (minutes): 45 Critical care was time spent personally by me on the following activities: Development of treatment plan with patient or surrogate, discussions with consultants, evaluation of patient's response to treatment, examination of patient, ventilator management, review of old charts, ordering and review of radiographic studies, ordering and review of laboratory studies, ordering and performing treatments and interventions and obtaining history from patient or surrogate Comments: The patient is critically ill with: Prostate cancer, On mechanical ventilation, hypocalcemia, Electrolyte abnormalities, renal calculi, Hypertension, and liver cirrhosis. They require complex decision making. The patient was seen on rounds with critical care physician, Dr. Russell Richardson and they are in agreement with the plan of care. Pharmacy, respiratory and nursing services were present on rounds. us Lillian RODRIGUEZ IN CLINIC/BEDSIDE ORDERABLE S Final Result * ECHO, ADULT TRANSTHORACIC COMPLETE (06/16/2025 8:10 AM EDT) BSA 2.23 m2 [facility] ISCV Height 175.3 [facility] Weight 108.9 [facility] ISCV LVIDd 46 mm [facility]SC[facility] LVIDs 24 mm [facility] ISCV IVSd 9 mm [facility] ISCV LVPWd 10 mm [facility] ISCV LV MASS(C)D 148 g CINTIA ISCV [facility] CV ECHO LV MASS INDEX 66 g/m2 [facility] ISCV LV RWT 0.41 mm [facility] ISCV LVOT diam 20 mm [facility] ISCV LVOT AREA 3.1 cm2 [facility]SC[facility] LA dimension 41 mm [facility] ISCV Ao Root Diam 34 mm [facility] ISCV Ao STJ Diam 32 mm [facility] ISCV Asc Ao Diam 38 mm [facility] ISCV LAV(MOD-4ch) 49 mL [facility] ISCV RA MOD 4Ch 14 mL [facility] ISCV OLIVIA 6 mL/m2 [facility]SC[facility] RV base 41 mm [facility] ISCV RV Mid 37 mm [facility]SC[facility] RV Length 70 mm [facility] ISCV TAPSE 28 mm [facility] ISCV RV s' Jorge 25.0 cm/s [facility] ISCV LAV(MOD-bp) Indexed 26 mL/m2 [facility] ISCV LAV(MOD-2ch) 65 mL [facility] ISCV PA acc time 100 msec [facility]SC[facility] mean PAP 34 mmHg [facility]SC[facility] PA GA(ACCEL) 35.0 mmHg [facility] ISCV PA acc slope 847.4 cm/s2 [facility] ISC[facility] MPA diam 20 mm [facility] ISCV MPA area 3.1 cm2 [facility] ISCV LV EDV(MOD-4ch) 135 mL [facility] ISCV LV ESV(MOD4ch) 46 mL [facility]INT[facility] ISCV EF(MOD-sp4) 66 % [facility] ISCV LV EDV(MOD-2ch) 104 mL CINTIA ISCV EDV(MOD-bp) 120 mL [facility] ISCV LV ESV(MOD2ch) 39 mL [facility]INTIA ISCV EF(MOD-sp2) 63 % [facility] ISCV ESV(MOD-bp) 43 mL [facility]INTIA ISCV EF(MOD-bp) 64 % [facility] ISCV LVLs ap2 7.8 mm [facility]INTIA ISCV MV E Vmax 49.8 cm/s [facility] ISCV MV A Vmax 70.2 cm/s [facility] ISC[facility] MV E/A 0.7 cm/s [facility]SC[facility] LV Lat e' Velocity 10.7 cm/s [facility] ISCV Lat E/e' 4.7 [facility] ISCV LV Sept e' Jorge 6.9 cm/s [facility] ISCV Sep E/e' 7.2 [facility] ISCV Avg E/e' 5.9 [facility] ISCV Anatomical Region Laterality Modality Echocardiography Narrative 06/16/2025 8:55 AM EDT Left Ventricle: Based on the linear dimension and/or 2D volumes, the left ventricle is normal in size. There is normal left ventricular myocardial thickness and mass. The left ventricular systolic function is normal. The LVEF as measured by biplane volume is 64%. The diastolic function is normal. The left ventricular filling pressure is normal. Right Ventricle: The right ventricle is normal in size. The right ventricular systolic function is normal. Aortic Valve: There is mild aortic valve regurgitation. There is no recent study available for direct [id number] comparison. Left Ventricle Based on the linear dimension and/or 2D volumes, the left ventricle is normal in size. There is normal left ventricular myocardial thickness and mass. No left ventricular mass or thrombus is seen. The left ventricular systolic function is normal. The LVEF as measured by biplane volume is 64%. The diastolic function is normal. The left ventricular filling pressure is normal. The left ventricular wall motion is normal. Right Ventricle The right ventricle is normal in size. The right ventricular systolic function is normal. The spectral Doppler envelope of TR is not adequate for calculating the right ventricular systolic pressure (RVSP). Based upon other 2D and Doppler features, the RVSP is probably normal or at most mildly elevated. Left Atrium The left atrial size is normal with an indexed volume of 16-34 mL/m2. The interatrial septum is intact with no evidence for an atrial septal defect. Right Atrium The right atrial size is normal. IVC/SVC The IVC was not well visualized, and an assumed pressure of 8mmHg was used for calculations. Mitral Valve There is mild posterior mitral annular calcification. The mitral valve chordae are thickened and/or calcified. There is trace mitral regurgitation. There is no mitral stenosis. Tricuspid Valve The tricuspid valve is normal in appearance. There is trace tricuspid regurgitation. There is no tricuspid stenosis. Aortic Valve The aortic valve appears to be trileaflet. There is calcification of the aortic valve leaflets. There is aortic annular calcification present. There is mild aortic valve regurgitation. There is no hemodynamically significant valvular aortic stenosis. Pulmonic Valve The pulmonic valve is normal in appearance. There is trace pulmonic regurgitation. There is no pulmonic stenosis. Pericardium Evidence of epicardial fat. No pericardial effusion. Great Vessels The aortic root is normal in size. The sinus of Valsalva (aortic root) diameter is 34 mm by leading edge to leading edge method. In the maximally visualized portion, the ascending aorta appears normal in size. The ascending aorta diameter is 38 mm. In the maximally visualized portion, the aortic arch appears normal in size. The main pulmonary artery is normal in size. The main pulmonary artery diameter is 20 mm. Study Details A complete transthoracic echocardiogram using two-dimensional (2D), m-mode, color and spectral flow Doppler imaging was performed. The study was technically difficult. The study was technically difficult due to patient's clinical status and body habitus. Heart rate was normal. Height: 175.3 cm. Weight: 108.9 kg. BSA: 2.23 m2. The heart rhythm during this exam was most suggestive of a sinus rhythm. Study Recommendation There is no recent study available for direct [id number] comparison. Raymond Katz APRN CV ECHO PROCEDURES Final Resu lt * (ABNORMAL) POCT glucose meter (06/16/2025 8:09 AM EDT) Pathologist [facility] POCT Glucose 161(H) 74 - 99 mg/dL 06/16/2025 8:11 AM EDT [facility] Comment:Accuracy of a glucos e result obtained from a capillary whole blood specimen relies upon adequate, non-compromised capillary blood flow. If the capillary glucose result is not consistent with the patient's clinical signs and symptoms, glucose testing should be repeated with either an arterial or venous sample on the glucometer or sent to the main labortory for testing. Comment 06/16/2025 8:11 AM EDT [facility] Maintenance Equipment Operator ID Agatha Dasilva 06/16/2025 8:11 AM EDT [facility] Device ID [id number] 06/16/2025 8:11 AM EDT [facility] Specimen Type POC Arterial 06/16/2025 8:11 AM EDT [facility] Blood Arterial blood specimen / Unknown 06/16/2025 8:09 AM EDT 06/16/2025 8:11 AM EDT Dyllan Paul MD LAB POINT OF CARE TE ST DOCKED DEVICE UNSOLICITED RESULTS Final Result [facility] [address] [place] [id number] * Hemoglobin A1c (06/16/2025 4:24 AM EDT) Pathologist [facility] Hemoglobin A1c 5.4 <5.7 % 06/16/2025 12:01 PM EDT [facility] Blood Venous blood specimen / Unknown Venipuncture / Unknown 06/16/2025 4:24 AM EDT 06/16/2025 4:31 AM EDT Narrative [facility] - 06/16/2025 12:01 PM EDT HA1C Interpretive Data: Diagnosis of Diabetes: Diabetic > or = 6.5% Pre-diabetic 5.7 to 6.4% Non-diabetic < or = 5.6% Glycemic Targets for Type I and Type II Diabetics: Non- Adults <7.0% Adults <6.0% Children and Adolescents <7.5% Source: [place] [employer]. Standards of medical care in diabetes,2017. Diabetes Care.2017:40 (suppl 1):S1-S135. us Lillian RODRIGUEZ LAB BLOOD ORDERABLES Final Result Performing Organization Address [facility]/ZIP Co de Phone Number [facility] [address] [place] [address] * Triglycerides (06/16/2025 4:24 AM EDT) Triglycerides, Plasma 103 <150 mg/dL 06/16/2025 5:02 AM EDT [facility] Comment: Triglyceride Reference Range (age >17 years): Desirable: <150 mg/dL Borderline high: 150 to 199 mg/dL High: 200 to 499 mg/dL Very high: >499 mg/dL Increased risk of pancreatitis: >1000 mg/dL Fasting greater than or equal to 12 hours? No 06/16/2025 5:02 AM EDT [facility] Blood Venous blood specimen / Unknown Venipuncture / Unknown 06/16/2025 4:24 AM EDT 06/16/2025 4:34 AM EDT us Raymond Katz APRN LAB BLOOD ORDERABLES Final Re sult [facility] [address] [place] [address] * (ABNORMAL) Phosphorus (06/16/2025 4:24 AM EDT) Phosphorus, Plasma 1.5(L) 2.5 - 4.5 mg/dL 06/16/2025 5:02 AM EDT [facility] Blood Venous blood specimen / Unknown Venipuncture / Unknown 06/16/2025 4:24 AM EDT 06/16/2025 4:34 AM EDT us Dyllan Paul MD LAB BLOOD ORDERABLES Final Re sult Performing Organization Address City/[facility]/ZIP Co de Phone Number [facility] [address] [place] [address] * Magnesium (06/16/2025 4:24 AM EDT) Magnesium, Plasma 2.4 1.9 - 2.4 mg/dL 06/16/2025 5:02 AM EDT [facility] Blood Venous blood specimen / Unknown Venipuncture / Unknown 06/16/2025 4:24 AM EDT 06/16/2025 4:34 AM EDT us Dyllan Paul MD LAB BLOOD ORDERABLES Final Re sult Performing Organization Address [facility] Co de Phone Number [facility] [address] [place] [address] * (ABNORMAL) Basic metabolic panel (06/16/2025 4:24 AM EDT) Glucose, Plasma 195(H) 74 - 99 mg/dL 06/16/2025 5:02 AM EDT [facility] BUN, Plasma 56(H) 8 - 23 mg/dL 06/16/2025 5:02 AM EDT [facility] Creatinine, Plasma 1.60(H) 0.70 - 1.20 mg/dL 06/16/2025 5:02 AM EDT [facility] BUN/Creatinine Ratio 35 06/16/2025 5:02 AM EDT [facility] Sodium, Plasma 142 136 - 145 mmol/L 06/16/2025 5:02 AM EDT [facility] Potassium, Plasma 3.1(L) 3.6 - 4.9 mmol/L 06/16/2025 5:02 AM EDT [facility] Chloride, Plasma 108(H) 97 - 107 mmol/L 06/16/2025 5:02 AM EDT [facility] CO2, Plasma 24 22 - 29 mmol/L 06/16/2025 5:02 AM EDT [facility] Anion Gap 10 6 - 16 mmol/L 06/16/2025 5:02 AM EDT [facility] Total Calcium, Plasma 8.5(L) 8.9 - 10.2 mg/dL 06/16/2025 5:02 AM EDT [facility] eGFRcr 46.1 mL/min/1.7 3m*2 06/16/2025 5:02 AM EDT [facility] Comment:Reported eGFRcr in m L/min/1.73m2 is based the CKD-EPI 2020 equation that does not use a race coefficient. Blood Venous blood specimen / Unknown Venipuncture / Unknown 06/16/2025 4:24 AM EDT 06/16/2025 4:34 AM EDT Dyllan Paul MD LAB BLOOD ORDERABLES Final Re sult [facility] [address] [place] [address] * (ABNORMAL) Hemogram (CBC) (06/16/2025 4:24 AM EDT) WBC Count 12.74(H) 3.70 - 10.30 10*3/uL LAB HEMATOLOGY METHOD 06/16/2025 4:45 AM EDT [facility] RBC Count 3.66(L) 4.60 - 6.10 10*6/uL LAB HEMATOLOGY METHOD 06/16/2025 4:45 AM EDT [facility] HGB 11.8(L) 13.7 - 17.5 g/dL LAB HEMATOLOGY METHOD 06/16/2025 4:45 AM EDT [facility] HCT 34.2(L) 40.0 - 51.0 % LAB HEMATOLOGY METHOD 06/16/2025 4:45 AM EDT [facility] Platelet Count 67(L) 155 - 369 10*3/uL LAB HEMATOLOGY METHOD 06/16/2025 4:45 AM EDT [facility] MCV 93 79 - 98 fL LAB HEMATOLOGY METHOD 06/16/2025 4:45 AM EDT [facility] MCH 32.2(H) 26.0 - 32.0 pg LAB HEMATOLOGY METHOD 06/16/2025 4:45 AM EDT [facility] MCHC 34.5 30.7 - 35.5 g/dL LAB HEMATOLOGY METHOD 06/16/2025 4:45 AM EDT [facility] RDW 15.5(H) 11.5 - 14.5 % LAB HEMATOLOGY METHOD 06/16/2025 4:45 AM EDT [facility] MPV 12.7(H) 8.8 - 12.5 fL LAB HEMATOLOGY METHOD 06/16/2025 4:45 AM EDT [facility] nRBC 0.0 <=0.0 per 100 WBCs LAB HEMATOLOGY METHOD 06/16/2025 4:45 AM EDT [facility] Blood Venous blood specimen / Unknown Venipuncture / Unknown 06/16/2025 4:24 AM EDT 06/16/2025 4:31 AM EDT us Dyllan Paul MD LAB BLOOD ORDERABLES Final Re sult [facility] [address] [place] [address] * XR Chest 1 View (06/16/2025 4:23 AM EDT) Anatomical Region Laterality Modality Chest Digital Radiogra phy Impressions 06/16/2025 8:36 AM EDT Mildly increased left basilar atelectasis and/or airspace disease. CRITICAL RESULT: No. COMMUNICATION: Per this written report. By electronically signing this report, I, the attending physician, attest that I have personally reviewed the images/data for the above examination(s) and agree with the final edited report. Drafted by Caleb De La Cruz MD on 06/16/2025 8:27 AM Final report signed by Dyllan Swain MD on 06/16/2025 8:36 AM Narrative 06/16/2025 8:36 AM EDT CLINICAL INDICATION: lung field eval TECHNIQUE: XR CHEST 1 VIEW COMPARISON: 06/15/2025 and 06/14/2025 FINDINGS: Stable support devices. Low lung volumes. Mildly increased hazy opacities in the left mid and lower lung. Similar small bilateral pleural effusions. No pneumothorax. Stable cardiac silhouette. Nonaggressive appearing sclerosis in the proximal left humeral diaphysis. Procedure Note Dyllan Swain MD - 06/16/2025 CLINICAL INDICATION: lung field eval TECHNIQUE: XR CHEST 1 VIEW COMPARISON: 06/15/2025 and 06/14/2025 FINDINGS: Stable support devices. Low lung volumes. Mildly increased hazy opacitiesin the left mid and lower lung. Similar small bilateral pleural effusions.No pneumothorax. Stable cardiac silhouette. Nonaggressive appearingsclerosis in the proximal left humeral diaphysis. IMPRESSION: Mildly increased left basilar atelectasis and/or airspace disease. CRITICAL RESULT: No. COMMUNICATION: Per this written report. By electronically signing this report, I, the attending physician, attestthat I have personally reviewed the images/data for the aboveexamination(s) and agree with the final edited report. Drafted by Caleb De La Cruz MD on 06/16/2025 8:27 AM Final report signed by Dyllan Swain MD on 06/16/2025 8:36 AM Corry Doss APRN, DNP IMG XR PROCEDURES Fi nal Result * Streptococcus pneumoniae and Legionella Urinary Antigen (06/15/2025 2:53 PM EDT) Pathologist [facility] Legionella pneumophila serogroup 1 Antigen Result (Urine) Negative Negative 06/16/2025 6:33 AM EDT [facility] Streptococcus pneumoniae Antigen Result (Urine) Negative Negative 06/16/2025 6:33 AM EDT [facility] Urine Urine specimen obtained by clean catch procedure / Unknown Non-blood Collection / Unknown 06/15/2025 2:53 PM EDT 06/15/2025 3:17 PM EDT Corry Doss APRN, DNP LAB MICROBIOLOGY - G ENERAL ORDERABLES Final Result [facility] [address] [place] [address] * Mycoplasma Pneumoniae DNA By PCR (06/15/2025 2:49 PM EDT) Pathologist [facility] Mycoplasma pneumoniae Source aspirate 06/23/2025 9:22 PM EDT [facility] ([facility]) Mycoplasma pneumoniae by PCR Not Detected 06/23/2025 9:22 PM EDT [facility] ([facility]) Aspirate Non-blood Collection / Unknown 06/15/2025 2:49 PM EDT 06/15/2025 3:34 PM EDT Narrative [facility]) - 06/23/2025 9:22 PM EDT NOT DETECTED - A negative result does not rule out the presence of PCR inhibitors in the patient specimen or assay specific nucleic acid in concentrations below the level of detection by the assay. INTERPRETIVE INFORMATION: Mycoplasma pneumoniae by PCR This test was developed and its performance characteristics determined by [facility]. It has not been cleared or approved by the [place] Food and Drug Administration. This test was performed in a CLIA certified laboratory and is intended for clinical purposes. Performed By: [place] [address] Recharger: Sotero Banuelos MD, PhD CLIA Number: [id number] Corry Doss APRN, DNP LAB REF LAB BLOOD AN D FLUID ORD [facility] [address] [place] [address] * Nasopharyngeal Respiratory Panel (06/15/2025 2:47 PM EDT) [facility] Nasopharyngeal Respiratory PCR Interpretation Not Detected for all analytes Not Detected for all analytes 06/15/2025 5:[address] [facility] Swab Nasopharyngeal structure / Unknown Non-blood Collection / Unknown 06/15/2025 2:47 PM EDT 06/15/2025 3:18 PM EDT Narrative [facility] - 06/15/2025 5:19 PM EDT This assay can detect Adenovirus, Coronavirus, Human Metapneumovirus, Human Rhino/Enterovirus, Influenza A, Influenza A H1, Influenza A H1 2009, Influenza A H3, Influenza B, Parainfluenza Virus 1, Parainfluenza Virus 2, Parainfluenza Virus 3, Parainfluenza Virus 4, Respiratory Syncytial Virus A, Respiratory Syncytial Virus B, Chlamydia pneumoniae, and Mycoplasma pneumoniae. Note: This assay does NOT detect SARS/CoV, novel Coronavirus 2019-nCoV, Bordetella pertussis or Bordetella parapertussis. Nasopharyngeal Respiratory PCR Panel is performed using the [employer] ePlex instrument. This test is FDA approved for use with Nasopharyngeal swabs only. This test is used for clinical purposes. It should not be regarded as investigational or for research. The [facility] Clinical Microbiology Laboratory is certified under the Clinical Laboratory Improvement Amendments of 1988 (CLIA-88) as qualified to perform high complexity clinical laboratory testing. Corry Doss APRN, [facility] LAB [facility]BIOLOGY - [facility] ORDERABLES Final Result [facility] [address] [place] [address] * (ABNORMAL) Mycoplasma Pneumoniae Antibody, IgG & IgM (06/15/2025 2:42 PM EDT) Mycoplasma Pneumoniae Antibody IgM 0.11 <=0.76 U/L 06/19/2025 5:44 AM EDT [facility] ([facility]) Mycoplasma Pneumoniae Antibody IgG 0.20(H) <=0.09 U/L 06/19/2025 5:44 AM EDT [facility] ([facility]) Blood Arterial blood specimen / Unknown Arterial Puncture / Unknown 06/15/2025 2:42 PM EDT 06/15/2025 3:02 PM EDT [facility] ([facility]) - 06/19/2025 5:44 AM EDT INTERPRETIVE INFORMATION: Mycoplasma pneumoniae Ab, IgG 0.09 U/L or less ............ Negative 0.10 - 0.32 U/L ............. Equivocal 0.33 U/L or greater ......... Positive INTERPRETIVE DATA: Over 50% of healthy adults have a relatively high background of specific M. pneumoniae IgG antibodies in their sera, probably because of past M. pneumoniae infections. Therefore, paired sera obtained with a time interval of 1 to 3 weeks are highly recommended in adults to confirm reinfection by M. pneumoniae, which is demonstrated by a significant change in IgG antibodies. A significant change is indicated if one sample is above 0.32 U/L and the other is below 0.20 U/L. INTERPRETIVE INFORMATION: Mycoplasma pneumoniae Ab, IgM 0.76 U/L or less .......... Negative: No clinically significant amount of M. pneumoniae IgM antibody detected. 0.77 - 0.95 U/L ........... Low Positive: M. pneumoniae- specific IgM presumptively detected. Collection of a follow-up sample in 1-2 weeks is recommended to assure reactivity. 0.96 U/L or greater ....... Positive: Highly significant amount of M. pneumoniae- specific IgM antibody detected. However, low levels of IgM antibodies may occasionally persist for more than 12 months post-infection. Performed By: [facility] [address] [place] [address] Recharger: Sotero Banuelos MD, PhD CLIA Number: [id number] Corry Doss APRN, [place] LAB BLOOD ORDERABLES Final Result [facility] ([facility]) [address] [place] [address] * (ABNORMAL) Blood gas panel, arterial (06/15/2025 11:39 AM EDT) pH, Arterial 7.47(H) 7.31 - 7.42 LAB HEMATOLOGY METHOD 06/15/2025 11:48 AM EDT [facility] pCO2, Arterial 35 32 - 45 mmHg LAB HEMATOLOGY METHOD 06/15/2025 11:48 AM EDT [facility] pO2, Arterial 57(LL) >70 mmHg LAB HEMATOLOGY METHOD 06/15/2025 11:48 AM EDT [facility] SO2, Measured, Arterial 91(L) 94 - 98 % LAB HEMATOLOGY METHOD 06/15/2025 11:48 AM EDT [facility] Base Excess, Arterial 1.7 -2.0 - 3.0 mmol/L LAB HEMATOLOGY METHOD 06/15/2025 11:48 AM EDT [facility] Bicarbonate, Calculated, Arterial 25 22 - 26 mmol/L LAB HEMATOLOGY METHOD 06/15/2025 11:48 AM EDT [facility] Hematocrit, Whole Blood 36.2(L) 40.0 - 51.0 % LAB HEMATOLOGY METHOD 06/15/2025 11:48 AM EDT [facility] Sodium, Whole Blood 139 136 - 145 mmol/L LAB HEMATOLOGY METHOD 06/15/2025 11:48 AM EDT [facility] Potassium, Whole Blood 3.1(L) 3.6 - 4.9 mmol/L LAB HEMATOLOGY METHOD 06/15/2025 11:48 AM EDT [facility] Chloride, Whole Blood 107 97 - 107 mmol/L LAB HEMATOLOGY METHOD 06/15/2025 11:48 AM EDT [facility] Glucose, Whole Blood 174(H) 74 - 99 mg/dL LAB HEMATOLOGY METHOD 06/15/2025 11:48 AM EDT [facility] Ionized Calcium, Whole Blood 4.6 4.6 - 5.1 mg/dL LAB HEMATOLOGY METHOD 06/15/2025 11:48 AM EDT [facility] Lactate, Arterial, Whole Blood 1.7(H) 0.5 - 1.6 mmol/L LAB HEMATOLOGY METHOD 06/15/2025 11:48 AM EDT [facility] Blood Arterial blood specimen / Unknown Arterial Puncture / Unknown 06/15/2025 11:39 AM EDT 06/15/2025 11:44 AM EDT Roshan Haas APRN, DNP LAB BLOOD ORDERABLES Fi nal Result [facility] [address] [place] [address] * Vancomycin, random (06/15/2025 11:38 AM EDT) Vancomycin, Random, Plasma 8.2 ug/mL 06/15/2025 12:18 PM EDT [facility] Blood Venous blood specimen / Unknown Venipuncture / Unknown 06/15/2025 11:38 AM EDT 06/15/2025 11:48 AM EDT Corry Doss APRN, DNP LAB BLOOD ORDERABLES Final Result [facility] [address] [place] [address] * [place] CRITICAL CARE, E/M 30-74 MINUTES (06/15/2025 9:09 AM EDT) Narrative Corry Doss APRN, DNP - 06/15/2025 9:09 AM EDT Corry Doss APRN, DNP 06/15/2025 9:12 AM Critical Care Performed by: Corry Doss APRN, DNP Authorized by: Corry Doss APRN, DNP Critical care provider statement: Critical care time (minutes): 42 Critical care time was exclusive of: Separately billable procedures and treating other patients Critical care was time spent personally by me on the following activities: Development of treatment plan with patient or surrogate, discussions with consultants, discussions with primary provider, evaluation of patient's response to treatment, obtaining history from patient or surrogate, examination of patient, ordering and performing treatments and interventions, ordering and review of laboratory studies, ordering and review of radiographic studies, review of old charts and ventilator management Corry Doss APRN, DNP IN CLINIC/BEDSIDE OR DERABLES Final Result * (ABNORMAL) Blood gas panel, arterial (06/15/2025 6:20 AM EDT) pH, Arterial 7.45(H) 7.31 - 7.42 LAB HEMATOLOGY METHOD 06/15/2025 6:27 AM EDT [facility] pCO2, Arterial 37 32 - 45 mmHg LAB HEMATOLOGY METHOD 06/15/2025 6:27 AM EDT [facility] pO2, Arterial 61(L) >70 mmHg LAB HEMATOLOGY METHOD 06/15/2025 6:27 AM EDT [facility] SO2, Measured, Arterial 92(L) 94 - 98 % LAB HEMATOLOGY METHOD 06/15/2025 6:27 AM EDT [facility] Base Excess, Arterial 1.9 -2.0 - 3.0 mmol/L LAB HEMATOLOGY METHOD 06/15/2025 6:27 AM EDT [facility] Bicarbonate, Calculated, Arterial 26 22 - 26 mmol/L LAB HEMATOLOGY METHOD 06/15/2025 6:27 AM EDT [facility] Hematocrit, Whole Blood 35.9(L) 40.0 - 51.0 % LAB HEMATOLOGY METHOD 06/15/2025 6:27 AM EDT [facility] Sodium, Whole Blood 138 136 - 145 mmol/L LAB HEMATOLOGY METHOD 06/15/2025 6:27 AM EDT [facility] Potassium, Whole Blood 3.3(L) 3.6 - 4.9 mmol/L LAB HEMATOLOGY METHOD 06/15/2025 6:27 AM EDT [facility] Chloride, Whole Blood 108(H) 97 - 107 mmol/L LAB HEMATOLOGY METHOD 06/15/2025 6:27 AM EDT [facility] Glucose, Whole Blood 173(H) 74 - 99 mg/dL LAB HEMATOLOGY METHOD 06/15/2025 6:27 AM EDT [facility] Ionized Calcium, Whole Blood 4.5(L) 4.6 - 5.1 mg/dL LAB HEMATOLOGY METHOD 06/15/2025 6:27 AM EDT [facility] Lactate, Arterial, Whole Blood 1.5 0.5 - 1.6 mmol/L LAB HEMATOLOGY METHOD 06/15/2025 6:27 AM EDT [facility] Blood Arterial blood specimen / Unknown Arterial Puncture / Unknown 06/15/2025 6:20 AM EDT 06/15/2025 6:25 AM EDT us Roshan Haas SEMI DRIVER, DNP LAB BLOOD ORDERABLES Fi nal Result Performing Organization Address City/State/[facility] Co de Phone Number [facility] [address] [place] [address] * XR Chest 1 View (06/15/2025 6:12 AM EDT) Anatomical Region Laterality Modality Chest Digital Radiogra phy Impressions 06/15/2025 11:59 PM EDT Stable exam CRITICAL RESULT: No. COMMUNICATION: Per this written report. Drafted by Carlyle Dee MD on 06/15/2025 11:51 PM Final report signed by Carlyle Dee MD on 06/15/2025 11:59 PM Narrative 06/15/2025 11:59 PM EDT CLINICAL INDICATION: lung field evaluation TECHNIQUE: XR CHEST 1 VIEW COMPARISON: June 14, 2025 FINDINGS: Stable support hardware. Cardiac and mediastinal silhouettes. Low lung volumes. Small bilateral pleural effusions and basal atelectasis, right greater than left. No pneumothorax. Unchanged aeration. Procedure Note Carlyle Dee MD - 06/16/2025 CLINICAL INDICATION: lung field evaluation TECHNIQUE: XR CHEST 1 VIEW COMPARISON: June 14, 2025 FINDINGS: Stable support hardware. Cardiac and mediastinal silhouettes. Low lungvolumes. Small bilateral pleural effusions and basal atelectasis, rightgreater than left. No pneumothorax. Unchanged aeration. IMPRESSION: Stable exam CRITICAL RESULT: No. COMMUNICATION: Per this written report. Drafted by Carlyle Dee MD on 06/15/2025 11:51 PM Final report signed by Carlyle Dee MD on 06/15/2025 11:59 PM Corry Doss SEMI DRIVER, DNP IMG XR PROCEDURES Fi nal Result * (ABNORMAL) Blood gas panel, arterial (06/15/2025 12:25 AM EDT) pH, Arterial 7.43(H) 7.31 - 7.42 LAB HEMATOLOGY METHOD 06/15/2025 12:36 AM EDT [facility] pCO2, Arterial 38 32 - 45 mmHg LAB HEMATOLOGY METHOD 06/15/2025 12:36 AM EDT [facility] pO2, Arterial 65(L) >70 mmHg LAB HEMATOLOGY METHOD 06/15/2025 12:36 AM EDT [facility] SO2, Measured, Arterial 93(L) 94 - 98 % LAB HEMATOLOGY METHOD 06/15/2025 12:36 AM EDT [facility] Base Excess, Arterial 1.0 -2.0 - 3.0 mmol/L LAB HEMATOLOGY METHOD 06/15/2025 12:36 AM EDT [facility] Bicarbonate, Calculated, Arterial 25 22 - 26 mmol/L LAB HEMATOLOGY METHOD 06/15/2025 12:36 AM EDT [facility] Hematocrit, Whole Blood 34.9(L) 40.0 - 51.0 % LAB HEMATOLOGY METHOD 06/15/2025 12:36 AM EDT [facility] Sodium, Whole Blood 139 136 - 145 mmol/L LAB HEMATOLOGY METHOD 06/15/2025 12:36 AM EDT [facility] Potassium, Whole Blood 3.4(L) 3.6 - 4.9 mmol/L LAB HEMATOLOGY METHOD 06/15/2025 12:36 AM EDT [facility] Chloride, Whole Blood 106 97 - 107 mmol/L LAB HEMATOLOGY METHOD 06/15/2025 12:36 AM EDT [facility] Glucose, Whole Blood 173(H) 74 - 99 mg/dL LAB HEMATOLOGY METHOD 06/15/2025 12:36 AM EDT [facility] Ionized Calcium, Whole Blood 4.5(L) 4.6 - 5.1 mg/dL LAB HEMATOLOGY METHOD 06/15/2025 12:36 AM EDT [facility] Lactate, Arterial, Whole Blood 1.8(H) 0.5 - 1.6 mmol/L LAB HEMATOLOGY METHOD 06/15/2025 12:36 AM EDT [facility] Blood Arterial blood specimen / Unknown Arterial Puncture / Unknown 06/15/2025 12:25 AM EDT 06/15/2025 12:34 AM EDT us Roshan Haas APRN, [place] LAB BLOOD ORDERABLES Fi nal Result [facility] [address] [place] [address] * Phosphorus (06/15/2025 12:25 AM EDT) Phosphorus, Plasma 3.2 2.5 - 4.5 mg/dL 06/15/2025 1:04 AM EDT [facility] Blood Arterial blood specimen / Unknown Venipuncture / Unknown 06/15/2025 12:25 AM EDT 06/15/2025 12:32 AM EDT us Dyllan Paul MD LAB BLOOD ORDERABLES Final Re sult [facility] [address] [place] [address] * Magnesium (06/15/2025 12:25 AM EDT) Magnesium, Plasma 2.3 1.9 - 2.4 mg/dL 06/15/2025 1:04 AM EDT [facility] Blood Arterial blood specimen / Unknown Venipuncture / Unknown 06/15/2025 12:25 AM EDT 06/15/2025 12:32 AM EDT us Dyllan Paul MD LAB BLOOD ORDERABLES Final Re sult [facility] [address] [place] [address] * (ABNORMAL) Basic metabolic panel (06/15/2025 12:25 AM EDT) Glucose, Plasma 168(H) 74 - 99 mg/dL 06/15/2025 1:04 AM EDT [facility] BUN, Plasma 58(H) 8 - 23 mg/dL 06/15/2025 1:04 AM EDT [facility] Creatinine, Plasma 2.18(H) 0.70 - 1.20 mg/dL 06/15/2025 1:04 AM EDT [facility] BUN/Creatinine Ratio 06/15/2025 1:04 AM EDT [facility] Sodium, Plasma 137 136 - 145 mmol/L 06/15/2025 1:04 AM EDT [facility] Potassium, Plasma 3.8 3.6 - 4.9 mmol/L 06/15/2025 1:04 AM EDT [facility] Chloride, Plasma 107 97 - 107 mmol/L 06/15/2025 1:04 AM EDT [facility] CO2, Plasma 23 22 - 29 mmol/L 06/15/2025 1:04 AM EDT [facility] Anion Gap 7 6 - 16 mmol/L 06/15/2025 1:04 AM EDT [facility] Total Calcium, Plasma 7.9(L) 8.9 - 10.2 mg/dL 06/15/2025 1:04 AM EDT [facility] eGFRcr 31.8 mL/min/1.7 3m*2 06/15/2025 1:04 AM EDT [facility] Comment:Reported eGFRcr in m L/min/1.73m2 is based the CKD-EPI 2020 equation that does not use a race coefficient. Blood Arterial blood specimen / Unknown Venipuncture / Unknown 06/15/2025 12:25 AM EDT 06/15/2025 12:32 AM EDT us Dyllan Paul MD LAB BLOOD ORDERABLES Final Re sult [facility] [address] [place] [address] * (ABNORMAL) Hemogram (CBC) (06/15/2025 12:25 AM EDT) WBC Count 15.49(H) 3.70 - 10.30 10*3/uL LAB HEMATOLOGY METHOD 06/15/2025 12:43 AM EDT [facility] RBC Count 3.57(L) 4.60 - 6.10 10*6/uL LAB HEMATOLOGY METHOD 06/15/2025 12:43 AM EDT [facility] HGB 11.6(L) 13.7 - 17.5 g/dL LAB HEMATOLOGY METHOD 06/15/2025 12:43 AM EDT [facility] HCT 33.1(L) 40.0 - 51.0 % LAB HEMATOLOGY METHOD 06/15/2025 12:43 AM EDT [facility] Platelet Count 68(L) 155 - 369 10*3/uL LAB HEMATOLOGY METHOD 06/15/2025 12:43 AM EDT [facility] MCV 93 79 - 98 fL LAB HEMATOLOGY METHOD 06/15/2025 12:43 AM EDT [facility] MCH 32.5(H) 26.0 - 32.0 pg LAB HEMATOLOGY METHOD 06/15/2025 12:43 AM EDT [facility] MCHC 35.0 30.7 - 35.5 g/dL LAB HEMATOLOGY METHOD 06/15/2025 12:43 AM EDT [facility] RDW 15.6(H) 11.5 - 14.5 % LAB HEMATOLOGY METHOD 06/15/2025 12:43 AM EDT [facility] MPV 12.7(H) 8.8 - 12.5 fL LAB HEMATOLOGY METHOD 06/15/2025 12:43 AM EDT [facility] nRBC 0.0 <=0.0 per 100 WBCs LAB HEMATOLOGY METHOD 06/15/2025 12:43 AM EDT [facility] Blood Arterial blood specimen / Unknown Venipuncture / Unknown 06/15/2025 12:25 AM EDT 06/15/2025 12:34 AM EDT us Dyllan Paul MD LAB BLOOD ORDERABLES Final Re sult [facility] [address] [place] [address] * (ABNORMAL) Blood gas panel, arterial (06/14/2025 6:07 PM EDT) pH, Arterial 7.41 7.31 - 7.42 LAB HEMATOLOGY METHOD 06/14/2025 6:14 PM EDT [facility] pCO2, Arterial 40 32 - 45 mmHg LAB HEMATOLOGY METHOD 06/14/2025 6:14 PM EDT [facility] pO2, Arterial 55(LL) >70 mmHg LAB HEMATOLOGY METHOD 06/14/2025 6:14 PM EDT [facility] SO2, Measured, Arterial 88(L) 94 - 98 % LAB HEMATOLOGY METHOD 06/14/2025 6:14 PM EDT [facility] Base Excess, Arterial 0.4 -2.0 - 3.0 mmol/L LAB HEMATOLOGY METHOD 06/14/2025 6:14 PM EDT [facility] Bicarbonate, Calculated, Arterial 25 22 - 26 mmol/L LAB HEMATOLOGY METHOD 06/14/2025 6:14 PM EDT [facility] Hematocrit, Whole Blood 36.1(L) 40.0 - 51.0 % LAB HEMATOLOGY METHOD 06/14/2025 6:14 PM EDT [facility] Sodium, Whole Blood 138 136 - 145 mmol/L LAB HEMATOLOGY METHOD 06/14/2025 6:14 PM EDT [facility] Potassium, Whole Blood 3.7 3.6 - 4.9 mmol/L LAB HEMATOLOGY METHOD 06/14/2025 6:14 PM EDT [facility] Chloride, Whole Blood 106 97 - 107 mmol/L LAB HEMATOLOGY METHOD 06/14/2025 6:14 PM EDT [facility] Glucose, Whole Blood 160(H) 74 - 99 mg/dL LAB HEMATOLOGY METHOD 06/14/2025 6:14 PM EDT [facility] Ionized Calcium, Whole Blood 4.5(L) 4.6 - 5.1 mg/dL LAB HEMATOLOGY METHOD 06/14/2025 6:14 PM EDT [facility] Lactate, Arterial, Whole Blood 2.1(H) 0.5 - 1.6 mmol/L LAB HEMATOLOGY METHOD 06/14/2025 6:14 PM EDT [facility] Blood Arterial blood specimen / Unknown Arterial Line / Unknown 06/14/2025 6:07 PM EDT 06/14/2025 6:13 PM EDT us Roshan Haas SEMI DRIVER, DNP LAB BLOOD ORDERABLES Fi nal Result [facility] [address] [place] [address] * (ABNORMAL) Blood gas panel, arterial (06/14/2025 12:09 PM EDT) pH, Arterial 7.39 7.31 - 7.42 LAB HEMATOLOGY METHOD 06/14/2025 12:20 PM EDT [facility] pCO2, Arterial 42 32 - 45 mmHg LAB HEMATOLOGY METHOD 06/14/2025 12:20 PM EDT [facility] pO2, Arterial 64(L) >70 mmHg LAB HEMATOLOGY METHOD 06/14/2025 12:20 PM EDT [facility] SO2, Measured, Arterial 92(L) 94 - 98 % LAB HEMATOLOGY METHOD 06/14/2025 12:20 PM EDT [facility] Base Excess, Arterial -0.2 -2.0 - 3.0 mmol/L LAB HEMATOLOGY METHOD 06/14/2025 12:20 PM EDT [facility] Bicarbonate, Calculated, Arterial 25 22 - 26 mmol/L LAB HEMATOLOGY METHOD 06/14/2025 12:20 PM EDT [facility] Hematocrit, Whole Blood 37.6(L) 40.0 - 51.0 % LAB HEMATOLOGY METHOD 06/14/2025 12:20 PM EDT [facility] Sodium, Whole Blood 137 136 - 145 mmol/L LAB HEMATOLOGY METHOD 06/14/2025 12:20 PM EDT [facility] Potassium, Whole Blood 3.9 3.6 - 4.9 mmol/L LAB HEMATOLOGY METHOD 06/14/2025 12:20 PM EDT [facility] Chloride, Whole Blood 107 97 - 107 mmol/L LAB HEMATOLOGY METHOD 06/14/2025 12:20 PM EDT [facility] Glucose, Whole Blood 143(H) 74 - 99 mg/dL LAB HEMATOLOGY METHOD 06/14/2025 12:20 PM EDT [facility] Ionized Calcium, Whole Blood 4.3(L) 4.6 - 5.1 mg/dL LAB HEMATOLOGY METHOD 06/14/2025 12:20 PM EDT [facility] Lactate, Arterial, Whole Blood 2.3(H) 0.5 - 1.6 mmol/L LAB HEMATOLOGY METHOD 06/14/2025 12:20 PM EDT [facility] Blood Arterial blood specimen / Unknown Arterial Line / Unknown 06/14/2025 12:09 PM EDT 06/14/2025 12:18 PM EDT Roshan Haas APRN, DNP LAB BLOOD ORDERABLES Fi nal Result [facility] [address] [place] [address] * [facility], E/M 30-74 MINUTES (06/14/2025 9:53 AM EDT) Narrative Corry Doss APRN, DNP - 06/14/2025 9:53 AM EDT Corry Doss APRN, DNP 06/14/2025 9:59 AM Critical Care Performed by: Corry Doss APRN, DNP Authorized by: Corry Doss APRN, DNP Critical care provider statement: Critical care time (minutes): 42 Critical care time was exclusive of: Separately billable procedures and treating other patients Critical care was time spent personally by me on the following activities: Development of treatment plan with patient or surrogate, discussions with consultants, discussions with primary provider, evaluation of patient's response to treatment, obtaining history from patient or surrogate, examination of patient, ordering and performing treatments and interventions, ordering and review of laboratory studies, ordering and review of radiographic studies, review of old charts and ventilator management us Corry Doss APRN, DNP IN CLINIC/BEDSIDE OR DERABLES Final Result * Urinalysis Microscopic Examination (06/14/2025 8:21 AM EDT) Urine Urine specimen from urinary conduit / Unknown Non-blood Collection / Unknown 06/14/2025 8:21 AM EDT 06/14/2025 8:44 AM EDT us Corry Doss APRN, DNP LAB URINE ORDERABLES Final Result [facility] [address] [place] [address] * (ABNORMAL) Urinalysis with reflex microscopic (Culture NOT Included) (06/14/2025 8:21 AM EDT) Color, Urine Red LAB URINALYSIS - AUTOMATED METHOD 06/14/2025 10:54 AM EDT [facility] Clarity, Urine Cloudy LAB URINALYSIS - AUTOMATED METHOD 06/14/2025 10:54 AM EDT [facility] Spec Hindman, Urine 1.019 1.005 - 1.030 LAB URINALYSIS - AUTOMATED METHOD 06/14/2025 10:54 AM EDT [facility] pH, Urine <=5.0(L) 5.0 - 8.0 LAB URINALYSIS - AUTOMATED METHOD 06/14/2025 10:54 AM EDT [facility] Protein, Urine 100(A) Negative mg/dL LAB URINALYSIS - AUTOMATED METHOD 06/14/2025 10:54 AM EDT [facility] Glucose, Urine Negative Negative mg/dL LAB URINALYSIS - AUTOMATED METHOD 06/14/2025 10:54 AM EDT [facility] Ketones, Urine Negative Negative mg/dL LAB URINALYSIS - AUTOMATED METHOD 06/14/2025 10:54 AM EDT [facility] Blood, Urine Moderate(A) Negative LAB URINALYSIS - AUTOMATED METHOD 06/14/2025 10:54 AM EDT [facility] Bilirubin, Urine Small(A) Negative LAB URINALYSIS - AUTOMATED METHOD 06/14/2025 10:54 AM EDT [facility] Urobilinogen, Urine 1.0 0.2 to 1.0 mg/dL LAB URINALYSIS - AUTOMATED METHOD 06/14/2025 10:54 AM EDT [facility] Leukocytes, Urine Moderate(A) Negative LAB URINALYSIS - AUTOMATED METHOD 06/14/2025 10:54 AM EDT [facility] Nitrite, Urine Positive(A) Negative LAB URINALYSIS - AUTOMATED METHOD 06/14/2025 10:54 AM EDT [facility] RBC, Urine >50(A) 0 to 3 /HPF 06/14/2025 10:54 AM EDT [facility] Comment:This result was prev iously suppressed from the chart. WBC, Urine Unable to estimate due to obscuring RBC's (UNERBC) 0 to 5 /HPF 06/14/2025 10:54 AM EDT [facility] Comment:This result was prev iously suppressed from the chart. Squamous Epithelial Cells Unable to estimate due to obscuring RBC's (UNERBC) 0 to 5 /HPF 06/14/2025 10:54 AM EDT [facility] Comment:This result was prev iously suppressed from the chart. Hyaline Casts Unable to estimate due to obscuring RBC's (UNERBC) 0 to 5 /LPF 06/14/2025 10:54 AM EDT [facility] Comment:This result was prev iously suppressed from the chart. Bacteria, Urine Unable to estimate due to obscuring RBC's (UNERBC) Negative 06/14/2025 10:54 AM EDT [facility] Comment:This result was prev iously suppressed from the chart. WBC Casts Present Absent 06/14/2025 10:54 AM EDT [facility] Comment:This result was prev iously suppressed from the chart. Red Cell/Hemoglob in Casts Present Absent 06/14/2025 10:54 AM EDT [facility] Comment:This result was prev iously suppressed from the chart. Urine Urine specimen from urinary conduit / Unknown Non-blood Collection / Unknown 06/14/2025 8:21 AM EDT 06/14/2025 8:44 AM EDT Narrative [facility] - 06/14/2025 10:54 AM EDT Urinalysis dipstick results may be inaccurate due to specimen color or an interfering substance in the specimen. Performed by manual method Corry Doss APRN, LUDMILA LAB URINE ORDERABLES Final Result Performing Organization Address [facility] de Phone Number [facility] [address] [place] [address] * (ABNORMAL) Respiratory Culture and Gram Stain (06/14/2025 8:18 AM EDT) Culture Heavy Growth 06/17/2025 11:03 AM EDT [facility] Culture Mixed upper respiratory kelsi(A) 06/17/2025 11:03 AM EDT [facility] Comment:The organism value f or this result has been updated. These results have been appended to the previously preliminary verified report. Gram Stain Result Fewer than 10 Epithelial cells/LPF(A) 06/17/2025 11:03 AM EDT [facility] Gram Stain Result Greater than 25 WBC/LPF(A) 06/17/2025 11:03 AM EDT [facility] Gram Stain Result Numerous Gram negative rods(A) 06/17/2025 11:03 AM EDT [facility] Gram Stain Result Numerous Gram positive cocci in pairs and chains(A) 06/17/2025 11:03 AM EDT [facility] Gram Stain Result Moderate Gram positive cocci in clusters(A) 06/17/2025 11:03 AM EDT [facility] Aspirate Specimen from endotracheal tube / Unknown Non-blood Collection / Unknown 06/14/2025 8:18 AM EDT 06/14/2025 10:27 AM EDT Corry Doss APRN, LUD[place]ILA LAB MICROBIOLOGY - G ENERAL ORDERABLES Final Result Performing Organization Address [facility] Co de Phone Number [facility] [address] [place] [address] * XR Abdomen 1 View (06/14/2025 8:18 AM EDT) Anatomical Region Laterality Modality Body Digital Radiogra phy Impressions 06/14/2025 8:41 AM EDT Peripyloric feeding tube CRITICAL RESULT: No. COMMUNICATION: Per this written report. Drafted by Quentin Oliva MD on 06/14/2025 8:40 AM Final report signed by Quentin Oliva MD on 06/14/2025 8:41 AM Narrative 06/14/2025 8:41 AM EDT CLINICAL INDICATION: Ileus TECHNIQUE: XR ABDOMEN 1 VIEW COMPARISON: CT abdomen pelvis April 03, 2020 FINDINGS: The feeding tube terminates in a peripyloric location. Cholecystectomy clips. Nonobstructive bowel gas pattern. Procedure Note Quentin Oliva MD - 06/14/2025 CLINICAL INDICATION: Ileus TECHNIQUE: XR ABDOMEN 1 VIEW COMPARISON: CT abdomen pelvis April 03, 2020 FINDINGS: The feeding tube terminates in a peripyloric location. Cholecystectomyclips. Nonobstructive bowel gas pattern. IMPRESSION: Peripyloric feeding tube CRITICAL RESULT: No. COMMUNICATION: Per this written report. Drafted by Quentin Oliva MD on 06/14/2025 8:40 AM Final report signed by Quentin Oliva MD on 06/14/2025 8:41 AM Corry Doss APRN, LUDMILA IMG XR PROCEDURES Fi nal Result * Blood Culture (Aerobic/Anaerobet Set) (06/14/2025 8:17 AM EDT) Culture No growth at day 5 KEELY 06/19/2025 10:01 AM EDT [facility] Blood Upper arm part / Unknown Venipuncture / Unknown 06/14/2025 8:17 AM EDT 06/14/2025 8:59 AM EDT Corry Doss APRN, [place]ILA LAB MICROBIOLOGY - G ENERAL ORDERABLES Final Result [facility] [address] [place] [address] * (ABNORMAL) Procalcitonin, Plasma (06/14/2025 8:17 AM EDT) Procalcitonin, Plasma 1.99(H) <0.09 ng/mL 06/14/2025 9:20 AM EDT [facility] Blood Venous blood specimen / Unknown Venipuncture / Unknown 06/14/2025 8:17 AM EDT 06/14/2025 8:43 AM EDT Narrative [facility] - 06/14/2025 9:20 AM EDT Procalcitonin concentrations in healthy individuals are <0.09 ng/mL. Published data support the following interpretive risk assessment: An elevated procalcitonin result does not always indicate sepsis. Various non-infectious conditions are known to increase procalcitonin. Results should be considered in the context of clinical symptoms and other laboratory tests. Procalcitonin >2.0 ng/mL: Concentrations >2.0 ng/mL on the first day of ICU admission are associated with a higher risk of progression to severe sepsis and/or septic shock. The change in PCT over time may help predict 28 day mortality risk. Please consult [email or web address]-lym-anvsadyusb.[employer] for more information. Test performed at [facility]. us Corry Doss APRN, DNP LAB BLOOD ORDERABLES Final Result [facility] [address] [place] [address] * (ABNORMAL) Blood gas panel, arterial (06/14/2025 5:30 AM EDT) pH, Arterial 7.37 7.31 - 7.42 LAB HEMATOLOGY METHOD 06/14/2025 5:43 AM EDT [facility] pCO2, Arterial 43 32 - 45 mmHg LAB HEMATOLOGY METHOD 06/14/2025 5:43 AM EDT [facility] pO2, Arterial 58(LL) >70 mmHg LAB HEMATOLOGY METHOD 06/14/2025 5:43 AM EDT [facility] SO2, Measured, Arterial 88(L) 94 - 98 % LAB HEMATOLOGY METHOD 06/14/2025 5:43 AM EDT [facility] Base Excess, Arterial -0.4 -2.0 - 3.0 mmol/L LAB HEMATOLOGY METHOD 06/14/2025 5:43 AM EDT [facility] Bicarbonate, Calculated, Arterial 25 22 - 26 mmol/L LAB HEMATOLOGY METHOD 06/14/2025 5:43 AM EDT [facility] Hematocrit, Whole Blood 38.5(L) 40.0 - 51.0 % LAB HEMATOLOGY METHOD 06/14/2025 5:43 AM EDT [facility] Sodium, Whole Blood 138 136 - 145 mmol/L LAB HEMATOLOGY METHOD 06/14/2025 5:43 AM EDT [facility] Potassium, Whole Blood 4.1 3.6 - 4.9 mmol/L LAB HEMATOLOGY METHOD 06/14/2025 5:43 AM EDT [facility] Chloride, Whole Blood 106 97 - 107 mmol/L LAB HEMATOLOGY METHOD 06/14/2025 5:43 AM EDT [facility] Glucose, Whole Blood 141(H) 74 - 99 mg/dL LAB HEMATOLOGY METHOD 06/14/2025 5:43 AM EDT [facility] Ionized Calcium, Whole Blood 4.3(L) 4.6 - 5.1 mg/dL LAB HEMATOLOGY METHOD 06/14/2025 5:43 AM EDT [facility] Lactate, Arterial, Whole Blood 2.1(H) 0.5 - 1.6 mmol/L LAB HEMATOLOGY METHOD 06/14/2025 5:43 AM EDT [facility] Blood Arterial blood specimen / Unknown Arterial Puncture / Unknown 06/14/2025 5:30 AM EDT 06/14/2025 5:37 AM EDT us Roshan Haas SEMI DRIVER, DNP LAB BLOOD ORDERABLES Fi nal Result [facility] [address] [place] [address] * ECG Adult (06/14/2025 4:26 AM EDT) EKG DIAGNOSIS CLASS Abnormal MUSE ECG Ventricular Rate 109 BPM MUSE ECG Atrial Rate 109 BPM MUSE ECG GA Interval 152 ms MUSE ECG QRSD Interval 86 ms MUSE ECG QT Interval 336 ms MUSE ECG QTC Interval 452 ms MUSE ECG P Franklin -6 degrees MUSE ECG R Franklin -1 degrees MUSE ECG T Wave Franklin 5 degrees MUSE ECG Diagnosis Sinus tachycardia MUSE ECG Diagnosis Poor R-wave progression and cannot rule out an anterior infarct. MUSE ECG Diagnosis Cannot rule out Inferior infarct , age undetermined MUSE ECG Diagnosis Nonspecific T wave abnormality MUSE ECG Diagnosis Abnormal ECG MUSE ECG Diagnosis MUSE ECG Diagnosis Confirmed by Evin Flynn ([id number]) on 06/14/2025 2:38:22 PM MUSE ECG 06/14/2025 4:26 AM EDT 06/14/2025 2:38 PM EDT us Raymond Katz SEMI DRIVER ECG ORDERABLES Final Result MUSE ECG * XR Chest 1 View (06/14/2025 4:00 AM EDT) Anatomical Region Laterality Modality Chest Digital Radiogra phy Impressions 06/14/2025 4:30 AM EDT * Support hardware, as described. * Low lung volumes with left basilar opacities favored to reflect atelectasis. CRITICAL RESULT: No. COMMUNICATION: Per this written report. Drafted by Brian Thompson MD on 06/14/2025 4:29 AM Final report signed by Brian Thompson MD on 06/14/2025 4:30 AM Narrative 06/14/2025 4:30 AM EDT CLINICAL INDICATION: eval lung ocampo and OETT position TECHNIQUE: XR CHEST 1 VIEW COMPARISON: Chest radiograph 06/12/2025 FINDINGS: Endotracheal tube terminates 4.1 cm above the vincent. Tip of a feeding tube terminate in the stomach or first segment of the duodenum. Mildly reduced lung volumes. Left basilar opacities. The cardiomediastinal silhouette is within normal limits for size. No pneumothorax. No pleural effusion. No acute osseous abnormality. Procedure Note Brian Thompson MD - 06/14/2025 CLINICAL INDICATION: eval lung ocampo and OETT position TECHNIQUE: XR CHEST 1 VIEW COMPARISON: Chest radiograph 06/12/2025 FINDINGS: Endotracheal tube terminates 4.1 cm above the vincent. Tip of a feedingtube terminate in the stomach or first segment of the duodenum. Mildly reduced lung volumes. Left basilar opacities. The cardiomediastinalsilhouette is within normal limits for size. No pneumothorax. No pleuraleffusion. No acute osseous abnormality. IMPRESSION: *Support hardware, as described. *Low lung volumes with left basilar opacities favored to reflectatelectasis. CRITICAL RESULT: No. COMMUNICATION: Per this written report. Drafted by Brian Thompson MD on 06/14/2025 4:29 AM Final report signed by Brian Thompson MD on 06/14/2025 4:30 AM us Raymond Katz SEMI DRIVER IMG XR PROCEDURES Final Resul t * (ABNORMAL) Blood gas panel, arterial (06/14/2025 3:35 AM EDT) pH, Arterial 7.37 7.31 - 7.42 LAB HEMATOLOGY METHOD 06/14/2025 3:43 AM EDT [facility] pCO2, Arterial 43 32 - 45 mmHg LAB HEMATOLOGY METHOD 06/14/2025 3:43 AM EDT [facility] pO2, Arterial 64(L) >70 mmHg LAB HEMATOLOGY METHOD 06/14/2025 3:43 AM EDT [facility] SO2, Measured, Arterial 91(L) 94 - 98 % LAB HEMATOLOGY METHOD 06/14/2025 3:43 AM EDT [facility] Base Excess, Arterial -0.6 -2.0 - 3.0 mmol/L LAB HEMATOLOGY METHOD 06/14/2025 3:43 AM EDT [facility] Bicarbonate, Calculated, Arterial 25 22 - 26 mmol/L LAB HEMATOLOGY METHOD 06/14/2025 3:43 AM EDT [facility] Hematocrit, Whole Blood 38.2(L) 40.0 - 51.0 % LAB HEMATOLOGY METHOD 06/14/2025 3:43 AM EDT [facility] Sodium, Whole Blood 139 136 - 145 mmol/L LAB HEMATOLOGY METHOD 06/14/2025 3:43 AM EDT [facility] Potassium, Whole Blood 4.1 3.6 - 4.9 mmol/L LAB HEMATOLOGY METHOD 06/14/2025 3:43 AM EDT [facility] Chloride, Whole Blood 106 97 - 107 mmol/L LAB HEMATOLOGY METHOD 06/14/2025 3:43 AM EDT [facility] Glucose, Whole Blood 140(H) 74 - 99 mg/dL LAB HEMATOLOGY METHOD 06/14/2025 3:43 AM EDT [facility] Ionized Calcium, Whole Blood 4.4(L) 4.6 - 5.1 mg/dL LAB HEMATOLOGY METHOD 06/14/2025 3:43 AM EDT [facility] Lactate, Arterial, Whole Blood 2.0(H) 0.5 - 1.6 mmol/L LAB HEMATOLOGY METHOD 06/14/2025 3:43 AM EDT [facility] Blood Arterial blood specimen / Unknown Arterial Puncture / Unknown 06/14/2025 3:35 AM EDT 06/14/2025 3:41 AM EDT us Raymond Katz SEMI DRIVER LAB BLOOD ORDERABLES Final Re sult Performing Organization Address City/[facility]/ZIP Co de Phone Number [facility] [address] [place] [address] * N-Terminal Probnp (06/14/2025 12:41 AM EDT) N-Terminal, PROBNP, Plasma 109 0 - 899 pg/mL 06/14/2025 4:32 AM EDT [facility] Blood Arterial blood specimen / Unknown Venipuncture / Unknown 06/14/2025 12:41 AM EDT 06/14/2025 12:47 AM EDT us Mando Michelle APRN LAB BLOOD ORDERABLES Final Result [facility] [address] [place] [address] * (ABNORMAL) Blood gas panel, arterial (06/14/2025 12:41 AM EDT) pH, Arterial 7.36 7.31 - 7.42 LAB HEMATOLOGY METHOD 06/14/2025 12:48 AM EDT [facility] pCO2, Arterial 44 32 - 45 mmHg LAB HEMATOLOGY METHOD 06/14/2025 12:48 AM EDT [facility] pO2, Arterial 84 >70 mmHg LAB HEMATOLOGY METHOD 06/14/2025 12:48 AM EDT [facility] SO2, Measured, Arterial 97 94 - 98 % LAB HEMATOLOGY METHOD 06/14/2025 12:48 AM EDT [facility] Base Excess, Arterial -0.8 -2.0 - 3.0 mmol/L LAB HEMATOLOGY METHOD 06/14/2025 12:48 AM EDT [facility] Bicarbonate, Calculated, Arterial 25 22 - 26 mmol/L LAB HEMATOLOGY METHOD 06/14/2025 12:48 AM EDT [facility] Hematocrit, Whole Blood 38.2(L) 40.0 - 51.0 % LAB HEMATOLOGY METHOD 06/14/2025 12:48 AM EDT [facility] Sodium, Whole Blood 140 136 - 145 mmol/L LAB HEMATOLOGY METHOD 06/14/2025 12:48 AM EDT [facility] Potassium, Whole Blood 4.2 3.6 - 4.9 mmol/L LAB HEMATOLOGY METHOD 06/14/2025 12:48 AM EDT [facility] Chloride, Whole Blood 106 97 - 107 mmol/L LAB HEMATOLOGY METHOD 06/14/2025 12:48 AM EDT [facility] Glucose, Whole Blood 143(H) 74 - 99 mg/dL LAB HEMATOLOGY METHOD 06/14/2025 12:48 AM EDT [facility] Ionized Calcium, Whole Blood 4.4(L) 4.6 - 5.1 mg/dL LAB HEMATOLOGY METHOD 06/14/2025 12:48 AM EDT [facility] Lactate, Arterial, Whole Blood 2.1(H) 0.5 - 1.6 mmol/L LAB HEMATOLOGY METHOD 06/14/2025 12:48 AM EDT [facility] Blood Arterial blood specimen / Unknown Arterial Puncture / Unknown 06/14/2025 12:41 AM EDT 06/14/2025 12:47 AM EDT us Roshan Haas SEMI DRIVER, DNP LAB BLOOD ORDERABLES Fi nal Result [facility] [address] [place] [address] * (ABNORMAL) Phosphorus (06/14/2025 12:41 AM EDT) Phosphorus, Plasma 6.6(H) 2.5 - 4.5 mg/dL 06/14/2025 1:18 AM EDT [facility] Blood Arterial blood specimen / Unknown Venipuncture / Unknown 06/14/2025 12:41 AM EDT 06/14/2025 12:47 AM EDT Dyllan Paul MD LAB BLOOD ORDERABLES Final Re sult Performing Organization Address [facility]/ZIP Co de Phone Number [facility] [address] [place] [address] * Magnesium (06/14/2025 12:41 AM EDT) Magnesium, Plasma 2.4 1.9 - 2.4 mg/dL 06/14/2025 1:18 AM EDT [facility] Blood Arterial blood specimen / Unknown Venipuncture / Unknown 06/14/2025 12:41 AM EDT 06/14/2025 12:47 AM EDT Dyllan Paul MD LAB BLOOD ORDERABLES Final Re sult Performing Organization Address [facility] Co de Phone Number [facility] [address] [place] [address] * (ABNORMAL) Basic metabolic panel (06/14/2025 12:41 AM EDT) Glucose, Plasma 144(H) 74 - 99 mg/dL 06/14/2025 1:18 AM EDT [facility] BUN, Plasma 41(H) 8 - 23 mg/dL 06/14/2025 1:18 AM EDT [facility] Creatinine, Plasma 2.36(H) 0.70 - 1.20 mg/dL 06/14/2025 1:18 AM EDT [facility] BUN/Creatinine Ratio 17 06/14/2025 1:18 AM EDT [facility] Sodium, Plasma 141 136 - 145 mmol/L 06/14/2025 1:18 AM EDT [facility] Potassium, Plasma 4.8 3.6 - 4.9 mmol/L 06/14/2025 1:18 AM EDT [facility] Chloride, Plasma 107 97 - 107 mmol/L 06/14/2025 1:18 AM EDT [facility] CO2, Plasma 23 22 - 29 mmol/L 06/14/2025 1:18 AM EDT [facility] Anion Gap 11 6 - 16 mmol/L 06/14/2025 1:18 AM EDT [facility] Total Calcium, Plasma 7.9(L) 8.9 - 10.2 mg/dL 06/14/2025 1:18 AM EDT [facility] eGFRcr 28.9 mL/min/1.7 3m*2 06/14/2025 1:18 AM EDT [facility] Comment:Reported eGFRcr in m L/min/1.73m2 is based the CKD-EPI 2020 equation that does not use a race coefficient. Blood Arterial blood specimen / Unknown Venipuncture / Unknown 06/14/2025 12:41 AM EDT 06/14/2025 12:47 AM EDT us Dyllan Paul MD LAB BLOOD ORDERABLES Final Re sult [facility] [address] [place] [address] * (ABNORMAL) Hemogram (CBC) (06/14/2025 12:41 AM EDT) WBC Count 21.40(H) 3.70 - 10.30 10*3/uL LAB HEMATOLOGY METHOD 06/14/2025 12:56 AM EDT [facility] RBC Count 3.84(L) 4.60 - 6.10 10*6/uL LAB HEMATOLOGY METHOD 06/14/2025 12:56 AM EDT [facility] HGB 12.4(L) 13.7 - 17.5 g/dL LAB HEMATOLOGY METHOD 06/14/2025 12:56 AM EDT [facility] HCT 36.0(L) 40.0 - 51.0 % LAB HEMATOLOGY METHOD 06/14/2025 12:56 AM EDT [facility] Platelet Count 86(L) 155 - 369 10*3/uL LAB HEMATOLOGY METHOD 06/14/2025 12:56 AM EDT [facility] MCV 94 79 - 98 fL LAB HEMATOLOGY METHOD 06/14/2025 12:56 AM EDT [facility] MCH 32.3(H) 26.0 - 32.0 pg LAB HEMATOLOGY METHOD 06/14/2025 12:56 AM EDT [facility] MCHC 34.4 30.7 - 35.5 g/dL LAB HEMATOLOGY METHOD 06/14/2025 12:56 AM EDT [facility] RDW 16.1(H) 11.5 - 14.5 % LAB HEMATOLOGY METHOD 06/14/2025 12:56 AM EDT [facility] MPV 12.9(H) 8.8 - 12.5 fL LAB HEMATOLOGY METHOD 06/14/2025 12:56 AM EDT [facility] nRBC 0.0 <=0.0 per 100 WBCs LAB HEMATOLOGY METHOD 06/14/2025 12:56 AM EDT [facility] Blood Arterial blood specimen / Unknown Venipuncture / Unknown 06/14/2025 12:41 AM EDT 06/14/2025 12:47 AM EDT Dyllan Paul MD LAB BLOOD ORDERABLES Final Re sult [facility] [address] [place] [address] * (ABNORMAL) Blood gas panel, arterial (06/13/2025 5:13 PM EDT) pH, Arterial 7.34 7.31 - 7.42 LAB HEMATOLOGY METHOD 06/13/2025 5:20 PM EDT [facility] pCO2, Arterial 47(H) 32 - 45 mmHg LAB HEMATOLOGY METHOD 06/13/2025 5:20 PM EDT [facility] pO2, Arterial 72 >70 mmHg LAB HEMATOLOGY METHOD 06/13/2025 5:20 PM EDT [facility] SO2, Measured, Arterial 94 94 - 98 % LAB HEMATOLOGY METHOD 06/13/2025 5:20 PM EDT [facility] Base Excess, Arterial -1.1 -2.0 - 3.0 mmol/L LAB HEMATOLOGY METHOD 06/13/2025 5:20 PM EDT [facility] Bicarbonate, Calculated, Arterial 25 22 - 26 mmol/L LAB HEMATOLOGY METHOD 06/13/2025 5:20 PM EDT [facility] Hematocrit, Whole Blood 38.3(L) 40.0 - 51.0 % LAB HEMATOLOGY METHOD 06/13/2025 5:20 PM EDT [facility] Sodium, Whole Blood 139 136 - 145 mmol/L LAB HEMATOLOGY METHOD 06/13/2025 5:20 PM EDT [facility] Potassium, Whole Blood 4.0 3.6 - 4.9 mmol/L LAB HEMATOLOGY METHOD 06/13/2025 5:20 PM EDT [facility] Chloride, Whole Blood 107 97 - 107 mmol/L LAB HEMATOLOGY METHOD 06/13/2025 5:20 PM EDT [facility] Glucose, Whole Blood 143(H) 74 - 99 mg/dL LAB HEMATOLOGY METHOD 06/13/2025 5:20 PM EDT [facility] Ionized Calcium, Whole Blood 4.4(L) 4.6 - 5.1 mg/dL LAB HEMATOLOGY METHOD 06/13/2025 5:20 PM EDT [facility] Lactate, Arterial, Whole Blood 2.0(H) 0.5 - 1.6 mmol/L LAB HEMATOLOGY METHOD 06/13/2025 5:20 PM EDT [facility] Blood Arterial blood specimen / Unknown Arterial Puncture / Unknown 06/13/2025 5:13 PM EDT 06/13/2025 5:19 PM EDT us Roshan Haas SEMI DRIVER, DNP LAB BLOOD ORDERABLES Fi nal Result [facility] [address] [facility] [place] [facility] [place] [address] * Ionized calcium, whole blood (06/13/2025 3:35 PM EDT) Ionized Calcium, Whole Blood 4.6 4.6 - 5.1 mg/dL LAB HEMATOLOGY METHOD 06/13/2025 4:00 PM EDT [facility] Blood Venous blood specimen / Unknown Venipuncture / Unknown 06/13/2025 3:35 PM EDT 06/13/2025 3:57 PM EDT Roshan Haas APRN, LUDMILA LAB BLOOD ORDERABLES Fi nal Result Performing Organization Address [facility] Co de Phone Number [facility] [address] [place] [address] * Magnesium, Plasma (06/13/2025 3:35 PM EDT) Magnesium, Plasma 2.3 1.9 - 2.4 mg/dL 06/13/2025 4:23 PM EDT [facility] Blood Venous blood specimen / Unknown Venipuncture / Unknown 06/13/2025 3:35 PM EDT 06/13/2025 3:51 PM EDT Roshan Haas APRN, [facility] BLOOD ORDERABLES Fi nal Result Performing Organization Address [facility] Phone Number [facility] [address] [place] [address] * (ABNORMAL) Renal function panel (06/13/2025 3:35 PM EDT) Glucose, Plasma 148(H) 74 - 99 mg/dL 06/13/2025 4:23 PM EDT [facility] BUN, Plasma 31(H) 8 - 23 mg/dL 06/13/2025 4:23 PM EDT [facility] Creatinine, Plasma 2.02(H) 0.70 - 1.20 mg/dL 06/13/2025 4:23 PM EDT [facility] BUN/Creatinine Ratio 15 06/13/2025 4:23 PM EDT [facility] Sodium, Plasma 143 136 - 145 mmol/L 06/13/2025 4:23 PM EDT [facility] Potassium, Plasma 4.7 3.6 - 4.9 mmol/L 06/13/2025 4:23 PM EDT [facility] Chloride, Plasma 108(H) 97 - 107 mmol/L 06/13/2025 4:23 PM EDT [facility] CO2, Plasma 22 22 - 29 mmol/L 06/13/2025 4:23 PM EDT [facility] [facility] Anion Gap 13 6 - 16 mmol/L 06/13/2025 4:23 PM EDT [facility] Total Calcium, Plasma 8.2(L) 8.9 - 10.2 mg/dL 06/13/2025 4:23 PM EDT [facility] Phosphorus, Plasma 7.4(H) 2.5 - 4.5 mg/dL 06/13/2025 4:23 PM EDT [facility] Albumin, Plasma 2.6(L) 3.5 - 5.2 g/dL 06/13/2025 4:23 PM EDT [facility] eGFRcr 34.8 mL/min/1.7 3m*2 06/13/2025 4:23 PM EDT [facility] Comment:Reported eGFRcr in m L/min/1.73m2 is based the CKD-EPI 2020 equation that does not use a race coefficient. Blood Venous blood specimen / Unknown Venipuncture / Unknown 06/13/2025 3:35 PM EDT 06/13/2025 3:51 PM EDT Roshan Haas APRN, DNP LAB BLOOD ORDERABLES Fi nal Result [facility] [address] [place] [address] * (ABNORMAL) Hemoglobin and hematocrit, blood (06/13/2025 11:57 AM EDT) HGB 12.8(L) 13.7 - 17.5 g/dL LAB HEMATOLOGY METHOD 06/13/2025 12:26 PM EDT [facility] HCT 37.2(L) 40.0 - 51.0 % LAB HEMATOLOGY METHOD 06/13/2025 12:26 PM EDT [facility] Blood Arterial blood specimen / Unknown Arterial Line / Unknown 06/13/2025 11:57 AM EDT 06/13/2025 12:17 PM EDT Roshan Haas APRN, DNP LAB BLOOD ORDERABLES Fi nal Result [facility] [address] [place] [address] * (ABNORMAL) Blood gas panel, arterial (06/13/2025 11:30 AM EDT) pH, Arterial 7.34 7.31 - 7.42 LAB HEMATOLOGY METHOD 06/13/2025 11:37 AM EDT [facility] pCO2, Arterial 45 32 - 45 mmHg LAB HEMATOLOGY METHOD 06/13/2025 11:37 AM EDT [facility] pO2, Arterial 82 >70 mmHg LAB HEMATOLOGY METHOD 06/13/2025 11:37 AM EDT [facility] SO2, Measured, Arterial 96 94 - 98 % LAB HEMATOLOGY METHOD 06/13/2025 11:37 AM EDT [facility] Base Excess, Arterial -1.7 -2.0 - 3.0 mmol/L LAB HEMATOLOGY METHOD 06/13/2025 11:37 AM EDT [facility] Bicarbonate, Calculated, Arterial 24 22 - 26 mmol/L LAB HEMATOLOGY METHOD 06/13/2025 11:37 AM EDT [facility] Hematocrit, Whole Blood 39.0(L) 40.0 - 51.0 % LAB HEMATOLOGY METHOD 06/13/2025 11:37 AM EDT [facility] Sodium, Whole Blood 140 136 - 145 mmol/L LAB HEMATOLOGY METHOD 06/13/2025 11:37 AM EDT [facility] Potassium, Whole Blood 3.9 3.6 - 4.9 mmol/L LAB HEMATOLOGY METHOD 06/13/2025 11:37 AM EDT [facility] Chloride, Whole Blood 108(H) 97 - 107 mmol/L LAB HEMATOLOGY METHOD 06/13/2025 11:37 AM EDT [facility] Glucose, Whole Blood 145(H) 74 - 99 mg/dL LAB HEMATOLOGY METHOD 06/13/2025 11:37 AM EDT [facility] Ionized Calcium, Whole Blood 4.5(L) 4.6 - 5.1 mg/dL LAB HEMATOLOGY METHOD 06/13/2025 11:37 AM EDT [facility] Lactate, Arterial, Whole Blood 2.3(H) 0.5 - 1.6 mmol/L LAB HEMATOLOGY METHOD 06/13/2025 11:37 AM EDT [facility] Blood Arterial blood specimen / Unknown Arterial Puncture / Unknown 06/13/2025 11:30 AM EDT 06/13/2025 11:36 AM EDT us Roshan Haas APRN, DNP LAB BLOOD ORDERABLES Fi nal Result [facility] [address] [place] [address] * GA CRITICAL CARE, ADDL 30 MIN (06/13/2025 10:48 AM EDT) Narrative Roshan Haas APRN, DNP - 06/13/2025 10:48 AM EDT Roshan Haas APRN, DNP 06/13/2025 12:03 PM Critical Care Performed by: Roshan Haas APRN, DNP Authorized by: Roshan Haas APRN, DNP Critical care provider statement: Critical care time (minutes): 45 Critical care was time spent personally by me on the following activities: Development of treatment plan with patient or surrogate, discussions with consultants, discussions with primary provider, evaluation of patient's response to treatment, examination of patient, obtaining history from patient or surrogate, ordering and performing treatments and interventions, ordering and review of laboratory studies, ordering and review of radiographic studies, ventilator management and review of old charts I assumed subsequent critical care for this patient from a provider in my division, on the same day: yes Comments: The patient is critically ill with: Post operative anemia, need for mechanical ventilation, Leukocytosis, hypotension, electrolyte derangement. They require complex decision making. The patient was seen on rounds with critical care physician, Dr. Floyd and they are in agreement with the plan of care. Pharmacy, respiratory and nursing services were present on rounds. us Roshan Haas APRN, DNP IN CLINIC/BEDSIDE ORDER LOYD Final Result * (ABNORMAL) Blood gas panel, arterial (06/13/2025 4:53 AM EDT) pH, Arterial 7.35 7.31 - 7.42 LAB HEMATOLOGY METHOD 06/13/2025 5:10 AM EDT [facility] pCO2, Arterial 46(H) 32 - 45 mmHg LAB HEMATOLOGY METHOD 06/13/2025 5:10 AM EDT [facility] pO2, Arterial 85 >70 mmHg LAB HEMATOLOGY METHOD 06/13/2025 5:10 AM EDT [facility] SO2, Measured, Arterial 97 94 - 98 % LAB HEMATOLOGY METHOD 06/13/2025 5:10 AM EDT [facility] Base Excess, Arterial -0.8 -2.0 - 3.0 mmol/L LAB HEMATOLOGY METHOD 06/13/2025 5:10 AM EDT [facility] Bicarbonate, Calculated, Arterial 25 22 - 26 mmol/L LAB HEMATOLOGY METHOD 06/13/2025 5:10 AM EDT [facility] Hematocrit, Whole Blood 38.7(L) 40.0 - 51.0 % LAB HEMATOLOGY METHOD 06/13/2025 5:10 AM EDT [facility] Sodium, Whole Blood 141 136 - 145 mmol/L LAB HEMATOLOGY METHOD 06/13/2025 5:10 AM EDT [facility] Potassium, Whole Blood 3.6 3.6 - 4.9 mmol/L LAB HEMATOLOGY METHOD 06/13/2025 5:10 AM EDT [facility] Chloride, Whole Blood 109(H) 97 - 107 mmol/L LAB HEMATOLOGY METHOD 06/13/2025 5:10 AM EDT [facility] Glucose, Whole Blood 137(H) 74 - 99 mg/dL LAB HEMATOLOGY METHOD 06/13/2025 5:10 AM EDT [facility] Ionized Calcium, Whole Blood 4.4(L) 4.6 - 5.1 mg/dL LAB HEMATOLOGY METHOD 06/13/2025 5:10 AM EDT [facility] Lactate, Arterial, Whole Blood 2.5(H) 0.5 - 1.6 mmol/L LAB HEMATOLOGY METHOD 06/13/2025 5:10 AM EDT [facility] Blood Arterial blood specimen / Unknown Arterial Line / Unknown 06/13/2025 4:53 AM EDT 06/13/2025 5:08 AM EDT us Jones Burdick SEMI DRIVER LAB BLOOD ORDERABLES Francia lise Result [facility] [address] [place] [address] * (ABNORMAL) Ionized calcium, whole blood (06/13/2025 4:53 AM EDT) Ionized Calcium, Whole Blood 4.4(L) 4.6 - 5.1 mg/dL LAB HEMATOLOGY METHOD 06/13/2025 5:13 AM EDT [facility] Blood Arterial blood specimen / Unknown Arterial Line / Unknown 06/13/2025 4:53 AM EDT 06/13/2025 5:10 AM EDT us Raymond Katz SEMI DRIVER LAB BLOOD [place] [address] * PERIPHERAL IV (SMARTFORM LINK) (06/13/2025 4:14 AM EDT) Narrative Tati Pedroza, RN - 06/13/2025 4:14 AM EDT Tati Pedroza, RN 06/13/2025 4:14 AM Insert peripheral IV Performed by: Tati Pedroza, RN Authorized by: Dyllan Paul MD Hand hygiene: Hand hygiene performed prior to insertion Inserted using aseptic techniques: Yes Preparation: Skin prepped with chg Orientation: Left and upper Location: Arm Catheter placed: Peripheral IV Catheter size: 20g/2.00in Line Technique: Ultrasound Guidance Number of attempts: 1 IV flushes: Without difficulty and positive blood return noted and IV luer locked Patient tolerance: Patient tolerated the procedure well and there were no complications Patient comfort measures used: Distraction and position of comfort IV site covered with: Transparent semipermeable dressing Education provided to: Patient Comments: All pertinent images were uploaded to PACS. us Dyllan Paul MD IV THERAPY ORDERABLES Final R esult * (ABNORMAL) CBC W/O Differential (06/13/2025 12:26 AM EDT) WBC Count 16.15(H) 3.70 - 10.30 10*3/uL LAB HEMATOLOGY METHOD 06/13/2025 12:43 AM EDT [facility] RBC Count 4.03(L) 4.60 - 6.10 10*6/uL LAB HEMATOLOGY METHOD 06/13/2025 12:43 AM EDT [facility] HGB 13.1(L) 13.7 - 17.5 g/dL LAB HEMATOLOGY METHOD 06/13/2025 12:43 AM EDT [facility] HCT 37.1(L) 40.0 - 51.0 % LAB HEMATOLOGY METHOD 06/13/2025 12:43 AM EDT [facility] Platelet Count 77(L) 155 - 369 10*3/uL LAB HEMATOLOGY METHOD 06/13/2025 12:43 AM EDT [facility] MCV 92 79 - 98 fL LAB HEMATOLOGY METHOD 06/13/2025 12:43 AM EDT [facility] MCH 32.5(H) 26.0 - 32.0 pg LAB HEMATOLOGY METHOD 06/13/2025 12:43 AM EDT [facility] MCHC 35.3 30.7 - 35.5 g/dL LAB HEMATOLOGY METHOD 06/13/2025 12:43 AM EDT [facility] RDW 16.1(H) 11.5 - 14.5 % LAB HEMATOLOGY METHOD 06/13/2025 12:43 AM EDT [facility] MPV 12.8(H) 8.8 - 12.5 fL LAB HEMATOLOGY METHOD 06/13/2025 12:43 AM EDT [facility] nRBC 0.6(H) <=0.0 per 100 WBCs LAB HEMATOLOGY METHOD 06/13/2025 12:43 AM EDT [facility] Blood Arterial blood specimen / Unknown Arterial Line / Unknown 06/13/2025 12:26 AM EDT 06/13/2025 12:31 AM EDT us Raymond Katz SEMI DRIVER LAB BLOOD ORDERABLES Final Re sult [facility] [address] [place] [address] * Richar auris Surveillance by PCR (06/12/2025 10:48 PM EDT) Richar auris PCR Result Not Detected Not Detected 06/13/2025 11:46 AM EDT [facility] Swab (Axilla and Groin) Non-blood Collection / Unknown 06/12/2025 10:48 PM EDT 06/12/2025 11:08 PM EDT Narrative [facility] - 06/13/2025 11:46 AM EDT This PCR assay was developed and its performance characteristics determined by [facility] as appropriate for clinical purposes. This assay has not been cleared or approved by the FDA, but is performed in a CLIA regulated laboratory that is qualified to perform high-complexity testing. Dyllan Paul MD LAB MICROBIOLOGY - GENERAL OR DERABLES Final Result Performing Organization Address [facility] [place] [address] * Multi Drug Resistance Test (06/12/2025 10:48 PM EDT) Culture No growth at day 1 06/14/2025 12:06 AM EDT [facility] Swab (Nares and Cari Rectal) Non-blood Collection / Unknown 06/12/2025 10:48 PM EDT 06/12/2025 11:08 PM EDT Narrative [facility] - 06/14/2025 12:06 AM EDT This test was developed and its performance characteristics determined by the [facility]. Although the media is FDA-approved, it is not FDA-approved for all specimen types submitted. The FDA has determined that such clearance or approval is not necessary. This test is used for surveillance purposes. It should not be regarded as investigational or for research. The [facility] is certified under the Clinical Laboratory Improvement Amendments of 1988 (CLIA-88) as qualified to perform high complexity clinical laboratory testing. Dyllan Paul MD LAB MICROBIOLOGY - GENERAL OR DERABLES Final Result Performing Organization Address City/[facility] Co de Phone Number [address] [address] * (ABNORMAL) Blood gas panel, arterial (06/12/2025 10:47 PM EDT) pH, Arterial 7.35 7.31 - 7.42 LAB HEMATOLOGY METHOD 06/12/2025 10:53 PM EDT [facility] pCO2, Arterial 45 32 - 45 mmHg LAB HEMATOLOGY METHOD 06/12/2025 10:53 PM EDT [facility] pO2, Arterial 163 >70 mmHg LAB HEMATOLOGY METHOD 06/12/2025 10:53 PM EDT [facility] SO2, Measured, Arterial 100(H) 94 - 98 % LAB HEMATOLOGY METHOD 06/12/2025 10:53 PM EDT [facility] Base Excess, Arterial -0.9 -2.0 - 3.0 mmol/L LAB HEMATOLOGY METHOD 06/12/2025 10:53 PM EDT [facility] Bicarbonate, Calculated, Arterial 25 22 - 26 mmol/L LAB HEMATOLOGY METHOD 06/12/2025 10:53 PM EDT [facility] Hematocrit, Whole Blood 39.8(L) 40.0 - 51.0 % LAB HEMATOLOGY METHOD 06/12/2025 10:53 PM EDT [facility] Sodium, Whole Blood 143 136 - 145 mmol/L LAB HEMATOLOGY METHOD 06/12/2025 10:53 PM EDT [facility] Potassium, Whole Blood 3.6 3.6 - 4.9 mmol/L LAB HEMATOLOGY METHOD 06/12/2025 10:53 PM EDT [facility] Chloride, Whole Blood 110(H) 97 - 107 mmol/L LAB HEMATOLOGY METHOD 06/12/2025 10:53 PM EDT [facility] Glucose, Whole Blood 142(H) 74 - 99 mg/dL LAB HEMATOLOGY METHOD 06/12/2025 10:53 PM EDT [facility] Ionized Calcium, Whole Blood 4.6 4.6 - 5.1 mg/dL LAB HEMATOLOGY METHOD 06/12/2025 10:53 PM EDT [facility] Lactate, Arterial, Whole Blood 2.3(H) 0.5 - 1.6 mmol/L LAB HEMATOLOGY METHOD 06/12/2025 10:53 PM EDT [facility] Blood Arterial blood specimen / Unknown Arterial Puncture / Unknown 06/12/2025 10:47 PM EDT 06/12/2025 10:52 PM EDT Raymond Katz APRN LAB BLOOD ORDERABLES Final Re sult [facility] [address] [place] [address] * GA CRITICAL CARE, ADDL 30 MIN, GA CRITICAL CARE, ADDL 30 MIN, GA CRITICAL CARE, ADDL 30 MIN (06/12/2025 10:22 PM EDT) Narrative Raymond Katz APRN - 06/12/2025 10:22 PM EDT Raymond Katz APRN 06/12/2025 10:30 PM Critical Care Performed by: Raymond Katz APRN Authorized by: Raymond Katz APRN Critical care provider statement: Critical care time (minutes): 90 Critical care time was exclusive of: Separately billable procedures and treating other patients Critical care was time spent personally by me on the following activities: Ordering and performing treatments and interventions, ordering and review of laboratory studies, ordering and review of radiographic studies, review of old charts, ventilator management, examination of patient, evaluation of patient's response to treatment, development of treatment plan with patient or surrogate and discussions with primary provider I assumed subsequent critical care for this patient from a provider in my division, on the same day: yes Raymond Katz APRN IN CLINIC/BEDSIDE ORDERABLES Final Result * (ABNORMAL) POCT glucose meter (06/12/2025 10:19 PM EDT) POCT Glucose 141(H) 74 - 99 mg/dL 06/12/2025 10:21 PM EDT [facility] Comment:Accuracy of a glucos e result obtained from a capillary whole blood specimen relies upon adequate, non-compromised capillary blood flow. If the capillary glucose result is not consistent with the patient's clinical signs and symptoms, glucose testing should be repeated with either an arterial or venous sample on the glucometer or sent to the main labortory for testing. Comment 06/12/2025 10:21 PM EDT [facility] Maintenance Equipment Operator ID Nikolay Mccall 06/12/2025 10:21 PM EDT [facility] Device ID [id number] 06/12/2025 10:21 PM EDT [facility] Specimen Type POC Capillary 06/12/2025 10:21 PM EDT [facility] Blood Capillary blood specimen / Unknown 06/12/2025 10:19 PM EDT 06/12/2025 10:21 PM EDT Dyllan Paul MD LAB POINT OF CARE TE ST DOCKED DEVICE UNSOLICITED RESULTS Final Result [facility] [address] [place] [id number] * XR Chest 1 View (06/12/2025 9:54 PM EDT) Anatomical Region Laterality Modality Chest Digital Radiogra phy Impressions 06/12/2025 10:00 PM EDT Endotracheal tube tip 2.5 cm above the vincent. Hypoventilation with likely perihilar and basilar atelectasis. CRITICAL RESULT: No. COMMUNICATION: Per this written report. Drafted by Irena Osborne MD on 06/12/2025 9:59 PM Final report signed by Irena Osborne MD on 06/12/2025 10:00 PM Narrative 06/12/2025 10:00 PM EDT CLINICAL INDICATION: Evaluate lung ocampo and tube placement TECHNIQUE: XR CHEST 1 VIEW COMPARISON: May 09, 2023. FINDINGS: Endotracheal tube tip 2.5 cm above the vincent. Low lung volumes. Perihilar and left basilar opacities. No pneumothorax. Enlarged cardiac silhouette may be projectional. Procedure Note Irena Osborne MD - 06/12/2025 CLINICAL INDICATION: Evaluate lung ocampo and tube placement TECHNIQUE: XR CHEST 1 VIEW COMPARISON: May 09, 2023. FINDINGS: Endotracheal tube tip 2.5 cm above the vincent. Low lung volumes. Perihilarand left basilar opacities. No pneumothorax. Enlarged cardiac silhouettemay be projectional. IMPRESSION: Endotracheal tube tip 2.5 cm above the vincent. Hypoventilation with likely perihilar and basilar atelectasis. CRITICAL RESULT: No. COMMUNICATION: Per this written report. Drafted by Irena Osborne MD on 06/12/2025 9:59 PM Final report signed by Irena Osborne MD on 06/12/2025 10:00 PM Raymond Katz SEMI DRIVER IMG XR PROCEDURES Final Resul t * (ABNORMAL) APTT (06/12/2025 9:27 PM EDT) aPTT 37(H) 25 - 35 sec LAB COAGULATION METHOD 06/12/2025 10:04 PM EDT [facility] Blood Arterial blood specimen / Unknown Arterial Line / Unknown 06/12/2025 9:27 PM EDT 06/12/2025 9:42 PM EDT Dyllan Paul MD LAB BLOOD ORDERABLES Final Re sult Performing Organization Address [facility] Co de Phone Number [facility] [address] [place] [address] * (ABNORMAL) Protime-INR (06/12/2025 9:27 PM EDT) Prothrombin Time 20.7(H) 12.0 - 14.3 sec LAB COAGULATION METHOD 06/12/2025 10:04 PM EDT [facility] INR 1.8(H) 0.9 - 1.1 LAB COAGULATION METHOD 06/12/2025 10:04 PM EDT [facility] Blood Arterial blood specimen / Unknown Arterial Line / Unknown 06/12/2025 9:27 PM EDT 06/12/2025 9:42 PM EDT Narrative [facility] - 06/12/2025 10:04 PM EDT OPTIMAL INR RANGES FOR PATIENT ON ORAL ANTICOAGULANT THERAPY Prevention of venous thromboembolism INR 2.0 to 3.0 In patients with heart disease: Atrial fibrillation INR 2.0 to 3.0 Valvular heart disease INR 2.0 to 3.0 Tissue heart valves INR 2.0 to 3.0 Mechanical prosthetic valves INR 2.5 to 3.5 Prevention of recurrent AK INR 2.5 to 3.5 Dyllan Paul MD LAB BLOOD ORDERABLES Final Re sult Performing Organization Address City/[facility]/ZIP Co de Phone Number [facility] [address] [place] [address] * (ABNORMAL) Phosphorus (06/12/2025 9:27 PM EDT) Phosphorus, Plasma 5.1(H) 2.5 - 4.5 mg/dL 06/12/2025 10:12 PM EDT [facility] Blood Arterial blood specimen / Unknown Arterial Line / Unknown 06/12/2025 9:27 PM EDT 06/12/2025 9:42 PM EDT Dyllan Paul MD LAB BLOOD ORDERABLES Final Re sult Performing Organization Address [facility]/ZIP Co de Phone Number [facility] [address] [place] [address] * (ABNORMAL) Magnesium (06/12/2025 9:27 PM EDT) Magnesium, Plasma 1.5(L) 1.9 - 2.4 mg/dL 06/12/2025 10:12 PM EDT [facility] Blood Arterial blood specimen / Unknown Arterial Line / Unknown 06/12/2025 9:27 PM EDT 06/12/2025 9:42 PM EDT Dyllan Paul MD LAB BLOOD ORDERABLES Final Re sult Performing Organization Address [facility] Co de Phone Number [facility] [address] [place] [address] * (ABNORMAL) Comprehensive metabolic panel (06/12/2025 9:27 PM EDT) Glucose, Plasma 148(H) 74 - 99 mg/dL 06/12/2025 10:12 PM EDT [facility] BUN, Plasma 17 8 - 23 mg/dL 06/12/2025 10:12 PM EDT [facility] Creatinine, Plasma 1.06 0.70 - 1.20 mg/dL 06/12/2025 10:12 PM EDT [facility] BUN/Creatinine Ratio 16 06/12/2025 10:12 PM EDT [facility] Sodium, Plasma 143 136 - 145 mmol/L 06/12/2025 10:12 PM EDT [facility] Potassium, Plasma 4.1 3.6 - 4.9 mmol/L 06/12/2025 10:12 PM EDT [facility] Chloride, Plasma 109(H) 97 - 107 mmol/L 06/12/2025 10:12 PM EDT [facility] CO2, Plasma 22 22 - 29 mmol/L 06/12/2025 10:12 PM EDT [facility] Anion Gap 12 6 - 16 mmol/L 06/12/2025 10:12 PM EDT [facility] Total Calcium, Plasma 8.5(L) 8.9 - 10.2 mg/dL 06/12/2025 10:12 PM EDT [facility] Total Protein 4.2(L) 6.3 - 7.9 g/dL 06/12/2025 10:12 PM EDT [facility] Albumin, Plasma 2.6(L) 3.5 - 5.2 g/dL 06/12/2025 10:12 PM EDT [facility] AST, Plasma 71(H) 10 - 50 U/L 06/12/2025 10:12 PM EDT [facility] Comment:Hemolyzed, result ma y be falsely increased. ALT, Plasma 39 10 - 50 U/L 06/12/2025 10:12 PM EDT [facility] Alkaline Phosphatase, Plasma 109 40 - 115 U/L 06/12/2025 10:12 PM EDT [facility] Total Bilirubin, Plasma 2.8(H) 0.2 - 1.1 mg/dL 06/12/2025 10:12 PM EDT [facility] eGFRcr 75.5 mL/min/1.7 3m*2 06/12/2025 10:12 PM EDT [facility] Comment:Reported eGFRcr in m L/min/1.73m2 is based the CKD-EPI 2020 equation that does not use a race coefficient. Blood Arterial blood specimen / Unknown Arterial Line / Unknown 06/12/2025 9:27 PM EDT 06/12/2025 9:42 PM EDT us Dyllan Paul MD LAB BLOOD ORDERABLES Final Re sult [facility] [address] [place] [address] * (ABNORMAL) CBC W/O Differential (06/12/2025 9:27 PM EDT) WBC Count 11.67(H) 3.70 - 10.30 10*3/uL LAB HEMATOLOGY METHOD 06/12/2025 10:23 PM EDT [facility] RBC Count 3.91(L) 4.60 - 6.10 10*6/uL LAB HEMATOLOGY METHOD 06/12/2025 10:23 PM EDT [facility] HGB 12.5(L) 13.7 - 17.5 g/dL LAB HEMATOLOGY METHOD 06/12/2025 10:23 PM EDT [facility] HCT 36.2(L) 40.0 - 51.0 % LAB HEMATOLOGY METHOD 06/12/2025 10:23 PM EDT [facility] Platelet Count 70(L) 155 - 369 10*3/uL LAB HEMATOLOGY METHOD 06/12/2025 10:23 PM EDT [facility] MCV 93 79 - 98 fL LAB HEMATOLOGY METHOD 06/12/2025 10:23 PM EDT [facility] MCH 32.0 26.0 - 32.0 pg LAB HEMATOLOGY METHOD 06/12/2025 10:23 PM EDT [facility] MCHC 34.5 30.7 - 35.5 g/dL LAB HEMATOLOGY METHOD 06/12/2025 10:23 PM EDT [facility] RDW 16.0(H) 11.5 - 14.5 % LAB HEMATOLOGY METHOD 06/12/2025 10:23 PM EDT [facility] MPV 12.8(H) 8.8 - 12.5 fL LAB HEMATOLOGY METHOD 06/12/2025 10:23 PM EDT [facility] nRBC 0.4(H) <=0.0 per 100 WBCs LAB HEMATOLOGY METHOD 06/12/2025 10:23 PM EDT [facility] Blood Arterial blood specimen / Unknown Arterial Line / Unknown 06/12/2025 9:27 PM EDT 06/12/2025 9:43 PM EDT us Dyllan Paul MD LAB BLOOD ORDERABLES Final Re sult [facility] [address] [place] [address] * (ABNORMAL) POCT arterial blood gas gem (06/12/2025 9:19 PM EDT) pH, Arterial 7.34 7.31 - 7.42 06/12/2025 9:20 PM EDT [facility] pCO2, Arterial 44 32 - 45 mm Hg 06/12/2025 9:20 PM EDT [facility] pO2, Arterial 81 >70 mm Hg 06/12/2025 9:20 PM EDT [facility] SO2, Arterial 98 94 - 98 % 06/12/2025 9:20 PM EDT [facility] Base Excess, Arterial -2.2(L) -2 - 3 mmol/L 06/12/2025 9:20 PM EDT [facility] HCO3, Arterial 23.7 22 - 26 mmol/L 06/12/2025 9:20 PM EDT [facility] Total Hemoglobin, Arterial, Whole Blood 12.2(L) 13.7 - 17.5 g/dL 06/12/2025 9:20 PM EDT [facility] Hematocrit, Arterial 37.0(L) 40 - 51.0 % 06/12/2025 9:20 PM EDT [facility] Sodium, Arterial 141 136 - 145 mmol/L 06/12/2025 9:20 PM EDT [facility] Potassium, Arterial 3.4(L) 3.6 - 4.9 mmol/L 06/12/2025 9:20 PM EDT [facility] Chloride, Whole Blood 112(H) 97 - 107 mmol/L 06/12/2025 9:20 PM EDT [facility] Glucose, Arterial 129(H) 74 - 99 mg/dL 06/12/2025 9:20 PM EDT [facility] Ionized Calcium, Arterial 4.5(L) 4.6 - 5.1 mg/dL 06/12/2025 9:20 PM EDT [facility] Lactate, Arterial 2.4(H) 0.5 - 1.6 mmol/L 06/12/2025 9:20 PM EDT [facility] Body Temperature 37.0 Celsius 06/12/2025 9:20 PM EDT [facility] pH, Temp Corrected, Arterial 7.34 7.31 - 7.42 06/12/2025 9:20 PM EDT [facility] pCO2, Temp Corrected, Arterial 44 32 - 45 mm Hg 06/12/2025 9:20 PM EDT [facility] pO2, Temp Corrected, Arterial 81 >70 mm Hg 06/12/2025 9:20 PM EDT [facility] Maintenance Equipment Operator ID Dyllan Wong 06/12/2025 9:20 PM EDT [facility] Blood, Arterial Whole blood specimen / Unknown 06/12/2025 9:19 PM EDT 06/12/2025 9:20 PM EDT us Dyllan Paul MD LAB POINT OF CARE TE ST DOCKED DEVICE UNSOLICITED RESULTS Final Result Performing Organization Address City/State/[facility] Co de Phone Number [facility] [address] [place] [address] * (ABNORMAL) POCT venous blood gas gem (06/12/2025 7:35 PM EDT) pH, Venous 7.29(L) 7.32 - 7.43 06/12/2025 7:36 PM EDT [facility] pCO2, Venous 56(H) 40 - 55 mm Hg 06/12/2025 7:36 PM EDT [facility] pO2, Venous 55(H) 25 - 40 mm Hg 06/12/2025 7:36 PM EDT [facility] SO2, Venous 83(H) 65 - 80 % 06/12/2025 7:36 PM EDT [facility] Base Excess/Deficit, Venous -0.5 -2 - 3 mmol/L 06/12/2025 7:36 PM EDT [facility] HCO3, Venous 26.9(H) 22 - 26 mmol/L 06/12/2025 7:36 PM EDT [facility] Hemoglobin, Venous 11.9(L) 13.7 - 17.5 g/dL 06/12/2025 7:36 PM EDT [facility] Hematocrit, Venous 36.0(L) 40.0 - 51.0 % 06/12/2025 7:36 PM EDT [facility] Sodium, Venous 142 136 - 145 mmol/L 06/12/2025 7:36 PM EDT [facility] Potassium, Venous 3.5(L) 3.6 - 4.9 mmol/L 06/12/2025 7:36 PM EDT [facility] POCT Chloride, Venous 107 97 - 107 mmol/L 06/12/2025 7:36 PM EDT [facility] Glucose, Venous 120(H) 74 - 99 mg/dL 06/12/2025 7:36 PM EDT [facility] Ionized Calcium, Venous 4.0(L) 4.6 - 5.1 mg/dL 06/12/2025 7:36 PM EDT [facility] Lactate, Venous 1.8 0.5 - 2.2 mmol/L 06/12/2025 7:36 PM EDT [facility] Body Temperature 37.0 Celsius 06/12/2025 7:36 PM EDT [facility] pH, Temp Corrected, Venous 7.29(L) 7.32 - 7.43 06/12/2025 7:36 PM EDT [facility] pCO2, Temp Corrected, Venous 56(H) 40 - 55 mm Hg 06/12/2025 7:36 PM EDT [facility] pO2, Temp Corrected, Venous 55(H) 25 - 40 mm Hg 06/12/2025 7:36 PM EDT [facility] Maintenance Equipment Operator ID Dyllan Wong 06/12/2025 7:36 PM EDT [facility] Blood, Venous Whole blood specimen / Unknown 06/12/2025 7:35 PM EDT 06/12/2025 7:36 PM EDT Dyllan Paul MD LAB POINT OF CARE TE ST DOCKED DEVICE UNSOLICITED RESULTS Final Result [facility] [address] [place], [place] [id number] * Transfuse RBC (06/12/2025 7:16 PM EDT) Afshin Reece MD BLOOD TRANSFUSION ORDERABLES Final Result * Transfuse RBC (06/12/2025 7:02 PM EDT) Afshin Reece MD BLOOD TRANSFUSION ORDERABLES Final Result * Prepare Leukocyte Reduced RBC: 4 Units (06/12/2025 6:49 PM EDT) Product Code C2410G87 [facility] Dispense Status Returned [facility] Blood Expiration Date [id number] BLOOD BANK Unit Number [id number] [facility] B LOOD BANK Product Blood Type 5100 [facility] Blood Type O+ [facility] Crossmatch Compatible [facility] Product Code [id number] [facility] Dispense Status Returned [facility] Blood Expiration Date [id number] BLOOD BANK Unit Number [id number] [facility] B LOOD BANK Product Blood Type 5100 [facility] Blood Type O+ [facility] Crossmatch Compatible [facility] Product Code [id number] [facility] Dispense Status Transfused [facility] Blood Expiration Date BLOOD BANK Unit Number [id number] [facility] B LOOD BANK Product Blood Type 5100 [facility]LO[facility] Blood Type O+ [facility]LOOD [facility] Crossmatch Compatible [facility]LOOD [facility] Product Code [id number] [facility] Dispense Status Transfused [facility]LOOD [facility] Blood Expiration Date [id number] BLOOD BANK Unit Number [id number] [facility] B LOOD BANK Product Blood Type 5100 [facility]LO[facility] Blood Type O+ [facility]LOOD [facility] Crossmatch Compatible BLOOD BANK Other Afshin Reece MD BLOOD BANK PRODUCT ORDERABLES Edited Result - Final Performing Organization Address City/State/ZIP Ne de Phone Number [facility] [address] [place] [address], * Surgical Pathology Exam (06/12/2025 6:07 PM EDT) Case Report Surgical Pathology Case: [id number] Authorizing Provider: Dyllan Paul MD Collected: 06/12/2025 1807 Ordering Location: [facility] A OPERATING ROOM Received: 06/13/2025 0811 Pathologist: Aliza Daugherty MD Specimens: A) - Other (specify site), Prostate and seminal vesicles - fresh for permanent B) - Other (specify site), Bilateral pelvic lymph nodes - permanent 06/19/2025 10:[address] [facility] Final Diagnosis A. PROSTATE AND SEMINAL VESICLES, RADICAL PROSTATECTOMY: - PROSTATIC ADENOCARCINOMA, ANIBAL'S 4+3 (GRADE GROUP 3, 60% PATTERN 4) WITH TERTIARY PATTERN 5. - NO SEMINAL VESICLE INVASION OR EXTRAPROSTATIC EXTENSION IDENTIFIED. - MARGINS FREE OF TUMOR. - APPROXIMATELY 3% OF GLAND INVOLVED BY TUMOR. - SEE CHECKLIST. B. LYMPH NODES, BILATERAL PELVIC, DISSECTION: - NO EVIDENCE OF METASTATIC CARCINOMA, EIGHT LYMPH NODES (0/8). 06/19/2025 10:43 AM EDT [facility] at 1043 EDT Synoptic Checklist PROSTATE GLAND: Radical Prostatectomy PROSTATE GLAND: RADICAL PROSTATECTOMY - All Specimens 8th Edition - Protocol posted: 08/09/2023 SPECIMEN Procedure: Radical prostatectomy Prostate Size: Prostate Weight (Grams): 75 g Prostate Greatest Dimension (Centimeters): 7.3 cm Additional Prostate Dimension (Centimeters): 5.1 cm Additional Prostate Dimension (Centimeters): 5.0 cm TUMOR Histologic Type: Acinar adenocarcinoma, conventional (usual) Histologic Grade: Grade: Grade group 3 (Anibal Score 4 + 3 = 7) Minor Tertiary Pattern 5 (less than 5%): Present Percentage of Pattern 4: Less than 61% Intraductal Carcinoma (IDC): Not identified Cribriform Glands: Present Treatment Effect: No known presurgical therapy TUMOR QUANTITATION: Estimated Percentage of Prostate Involved by Tumor: 1 - 5% Extraprostatic Extension (EPE): Not identified Urinary Bladder Neck Invasion: Not identified Seminal Vesicle Invasion: Not identified Lymphatic and / or Vascular Invasion: Not Identified Perineural Invasion: Present MARGINS Margin Status: All margins negative for invasive carcinoma REGIONAL LYMPH NODES Regional Lymph Node Status: : All regional lymph nodes negative for tumor Number of Lymph Nodes Examined: 8 pTNM CLASSIFICATION (AJCC 8th Edition) Reporting of pT, pN, and (when applicable) pM categories is based on information available to the pathologist at the time the report is issued. As per the AJCC (Chapter 1, 8th Ed.) it is the managing physician's responsibility to establish the final pathologic stage based upon all pertinent information, including but potentially not limited to this pathology report. pT Category: pT2 pN Category: pN0 ADDITIONAL FINDINGS Additional Findings: High-grade prostatic intraepithelial neoplasia (PIN) Additional Findings: Nodular prostatic hyperplasia Additional Findings: Inflammation (type): Acute and chronic 06/19/2025 10:43 AM EDT [facility] Clinical Information PROSTATE CANCER 06/19/2025 10:[address] [facility] Gross Description A. PROSTATE AND SEMINAL VESICLES - FRESH FOR PERMANENT Specimen label: Prostate and seminal vesicles Specimen fixation: Formalin Specimen type: Radical Prostatectomy Specimen Weight: 75 grams Specimen Size: The prostate measures 5.0 cm utyj-pd-ebim, 5.1 cm labuttkc-ta-bcllbs ior, and 7.3 cm dtan-ag-yvhuo. The left seminal vesicle measures 1.5 x 0.8 x 0.4 and the right seminal vesicle measures in 1.6 x 0.9 x 0.4. The left vas deferens measures 1.0 cm in length and .03 cm in diameter and the right vas deferens measures 0.8 cm in length and 0.3 cm in diameter. Exterior surface: There is a small portion of tumor protruding out the anterior surface of the prostate (please see photograph) Inking code: anterior surface is inked blue while the posterior surface is inked black Sectioning: The vas deferens margins are shaved bilaterally and then serially sectioned to reveal no gross abnormalities. A basal section from the bilateral seminal vesicles at the junction of the prostate is taken. The remaining seminal vesicles are sectioned to reveal no grossly identifiable tumor. The apical/distal urethral margin and the bladder neck/proximal urethral margin are transected from the prostate gland, halved into right and left, serially sectioned, and submitted entirely, on edge in separate cassettes. The prostate is serially sectioned from bgdi-fu-pfik into 9, 5mm slices. Serial sections reveal ritchie-white, nodular parenchyma. A becerra-yellow mass is located right and left posterolateral portion, measuring 0.2 cm to the closest margin. Each slice is further sectioned into quarters. Prostate submitted: Entirety Summary of Sections: A1: Left seminal vesicle and vas deferens A2: Right seminal vesicle and vas deferens A3: Left apical margin A4: Right apical margin A5: Left bladder neck margin A6: Right bladder neck margin A7: Slice #1, right anterior A8: Slice #1, right posterior A9: Slice #1, left anterior A10: Slice #1: left posterior A11: Slice #2, right anterior A12: Slice #2, right posterior A13: Slice #2, left anterior A14: Slice #2: left posterior A15: Slice #3, right anterior A16: Slice #3, right posterior A17: Slice #3, left anterior A18: Slice #3: left posterior A19: Slice #4, right anterior A20: Slice #4, right posterior A21: Slice #4, left anterior A22: Slice #4: left posterior A23: Slice #5, right anterior A24: Slice #5, right posterior A25: Slice #5, left anterior A26: Slice #5, left posterior A27: Slice #6, right anterior A28: Slice #6, right posterior A29: Slice #6, left anterior A30: Slice #6, left posterior A31: Slice #7, right anterior A32: Slice #7, right posterior A33: Slice #7, left anterior A34: Slice #7, left posterior A35: Slice #8, right anterior A36: Slice #8, right posterior A37: Slice #8, left anterior A38: Slice #8, left posterior A39: Slice #9, right anterior A40: Slice #9, right posterior A41: Slice #9, left anterior A42: Slice #9, left posterior Yrn Soto MD Cold Time: 13h 33m B. BILATERAL PELVIC LYMPH NODES - PERMANENT The specimen is received in formalin labeled bilateral pelvic lymph nodes. Received is a 7 x 3 x 2 cm fatty soft tissue fragment ranging from 0.8 - 4.0 cm . Through sharp and blunt dissection eight lymph nodes are revealed and submitted as follows: B1: two candidate lymph nodes B2: two candidate lymph nodes B3: one candidate lymph node B4: two candidate lymph nodes B5-B8: one candidate node serially sectioned Yrn Soto MD Cold Time: <1m 06/19/2025 10:43 AM EDT [facility] Note: A resident was involved in the service. I attest I examined the relevant preparations for the specimens and confirmed the diagnosis or interpretation. 06/19/2025 10:43 AM EDT [facility] Tissue Topography unknown / Unknown 06/12/2025 6:07 PM EDT 06/13/2025 8:11 AM EDT Comment:Pre-op diagnosis: PROSTATE CANCER Lymph node tissue specimen (specimen) Topography unknown / Unknown 06/12/2025 6:08 PM EDT 06/13/2025 8:11 AM EDT Comment:Pre-op diagnosis: PROSTATE CANCER Dyllan Paul MD LAB PATHOLOGY ORDERABLES Francia l Result [facility] [address] [place] [address] * POCT glucose meter (06/12/2025 1:21 PM EDT) POCT Glucose 83 74 - 99 mg/dL 06/12/2025 1:23 PM EDT [facility] Comment:Accuracy of a glucos e result obtained from a capillary whole blood specimen relies upon adequate, non-compromised capillary blood flow. If the capillary glucose result is not consistent with the patient's clinical signs and symptoms, glucose testing should be repeated with either an arterial or venous sample on the glucometer or sent to the main labortory for testing. Comment 06/12/2025 1:23 PM EDT [facility] Maintenance Equipment Operator ID Carol Proctor 06/12/2025 1:23 PM EDT HEALTH[facility]ARE LAB Device ID [id number] 06/12/2025 1:23 PM EDT [facility] Specimen Type POC Venous 06/12/2025 1:23 PM EDT [facility] Blood Venous blood specimen / Unknown 06/12/2025 1:21 PM EDT 06/12/2025 1:23 PM EDT Dyllan Paul MD LAB POINT OF CARE TE ST DOCKED DEVICE UNSOLICITED RESULTS Final Result Performing Organization Address City/[facility] Co de Phone Number HEALTHCARE LAB [address] [place] [address] * Type and Screen (06/12/2025 1:14 PM EDT) ABO/Rh O Positive 06/12/2025 1:08 PM EDT [facility] Antibody Screen Negative 06/12/2025 1:08 PM EDT [facility] Specimen Expiration 06/15/2025 23:59 06/12/2025 1:08 PM EDT [facility] Blood Venous blood specimen / Unknown Venipuncture / Unknown 06/12/2025 1:14 PM EDT 06/12/2025 1:31 PM EDT us Dyllan Paul MD LAB BLOOD BANK TEST ORDERABLE S Final Result [facility] [address] [place] [address], * Phosphatidylethanol (PEth), Whole Blood, Quantitative (06/12/2025 1:14 PM EDT) PEth 16:0/18:2 (PLPEth) 251 ng/mL 06/14/2025 11:37 AM EDT [facility] PEth 16:0/18:1 (POPEth) 260 ng/mL 06/14/2025 11:37 AM EDT [facility] EER Peth See Note 06/14/2025 11:37 AM EDT [facility] PEth Interpretation See Comment 06/14/2025 11:37 AM EDT [facility] Blood Venous blood specimen / Unknown Venipuncture / Unknown 06/12/2025 1:14 PM EDT 06/12/2025 1:43 PM EDT Narrative [facility] - 06/14/2025 11:37 AM EDT PEth 16:0/18:1 (POPEth) Less than 10 ng/mL............Not detected Less than 20 ng/mL............Abstinence or light alcohol consumption 20 - 200 ng/mL................Moderate alcohol consumption Greater than 200 ng/mL........Heavy alcohol consumption or chronic alcohol use (Reference: Nichole Means and Mike Lowe 2018 J. Forensic Sci) Reference ranges are not well established. Authorized individuals can access the [facility] Enhanced Report with an [employer] Connect account using the following link. Your local lab can assist you in obtaining the patient report if you don't have a Connect account. [email or web address] Phosphatidylethanol (PEth) is a group of phospholipids [...] developed and its performance characteristics determined by [facility]. It has not been cleared or approved by the U.S. Food and Drug Administration. This test was performed in a CLIA-certified laboratory and is intended for clinical purposes. Performed By: [facility] [address] [place] [address] Recharger: Sotero Banuelos MD, PhD CLIA Number: [id number] Dyllan Paul MD LAB REF LAB BLOOD AND FLUID O RD Final Result [facility] [address] [place] [address] documented in this encounter Visit Diagnoses Diagnosis Prostate CA- Primary Malignant neoplasm of prostate Prostate CA Malignant neoplasm of prostate Alcohol use disorder On mechanically assisted ventilation (CMS/HCC) Leukocytosis, unspecified type Hypotension due to hypovolemia Hypocalcemia Hyperbilirubinemia Disorders of bilirubin excretion Electrolyte abnormality Electrolyte and fluid disorders not elsewhere classified Severe obesity (BMI 35.0-39.9) with comorbidity (CMS/HCC) SCC (squamous cell carcinoma), leg, left Renal calculi Calculus of kidney Other secondary hypertension Alcoholic cirrhosis of liver with ascites H/O prostatectomy Hepatic cirrhosis, unspecified hepatic cirrhosis type, unspecified whether ascites present Severe obesity (BMI 35.0-39.9) with comorbidity (CMS/HCC) On mechanically assisted ventilation (CMS/HCC) Anemia Unspecified anemia Hyperlipidemia Other and unspecified hyperlipidemia Leukocytosis Leukocytosis, unspecified Cirrhosis of liver (CMS/HCC) Cirrhosis of liver without mention of alcohol Hyperbilirubinemia Disorders of bilirubin excretion Esophageal varices Esophageal varices without mention of bleeding Renal calculi Calculus of kidney Hypertension Unspecified essential hypertension Alcohol use disorder SCC (squamous cell carcinoma), leg, left Electrolyte abnormality Electrolyte and fluid disorders not elsewhere classified Hypotension Unspecified hypotension Hypocalcemia Metabolic encephalopathy Hypernatremia Hyperosmolality and/or hypernatremia Altered mental state Altered mental status Acute pulmonary embolism (CMS/HCC) Renal calculi Calculus of kidney Ureteral stone Calculus of ureter documented in this encounter Admitting Diagnoses Diagnosis Prostate CA Malignant neoplasm of prostate documented in this encounter Administered Medications Inactive Administered Medications - up to 3 most recent administrations Medication Order MAR Action Action Date Dose Rate Site atorvastatin (Lipitor) tablet 10 mg 10 mg, Nasogastric, Nightly, First dose on Mon06/18/25 at 2100, Until Discontinued, Routine Given 06/24/2025 10:41 PM EDT 10 mg Given 06/23/2025 9:43 PM EDT 10 mg Given 06/22/2025 9:35 PM EDT 10 mg bisacodyl (Dulcolax) suppository 10 mg 10 mg, Rectal, Daily, First dose on Mon06/16/25 at 0900, Until Discontinued, Routine Given 06/16/2025 9:28 AM EDT 10 mg calcium gluconate 1 g in sodium chloride 0.9% 100 mL IVPB (vial adapter required) 1 g, Intravenous, Once, 1 dose, On Mon06/13/25 at 0600, at 240 mL/hr, Administer over 30 Minutes, Routine New Bag 06/13/2025 6:06 AM EDT 1 g 240 mL/hr carvedilol (Coreg) tablet 3.125 mg 3.125 mg, Nasogastric, 2 times daily, First dose on Mon06/18/25 at 0900, Until Discontinued, Routine Given 06/24/2025 8:33 AM EDT 3.125 mg Given 06/23/2025 9:43 PM EDT 3.125 mg Given 06/23/2025 8:31 AM EDT 3.125 mg carvedilol (Coreg) tablet 3.125 mg 3.125 mg, Oral, 2 times daily, First dose (after last modification) on Mon06/24/25 at 2100, Until Discontinued, Routine Given 06/25/2025 8:29 AM EDT 3.125 mg Given 06/24/2025 10:41 PM EDT 3.125 mg dextrose 10 % (D10W) bolus 125 mL 125 mL, Intravenous, Every 15 min PRN, Starting on Mon06/16/25 at 0701, Until Mon06/25/25 at 2112, Administer over 15 Minutes, Routine, low blood sugar BG 51-89 mg/dL dextrose 10 % (D10W) bolus 250 mL 250 mL, Intravenous, Every 15 min PRN, Starting on Mon06/16/25 at 0701, Until Mon06/25/25 at 2112, Administer over 15 Minutes, Routine, PRN low blood sugar BG =/<50 mg/dL enoxaparin (Lovenox) syringe 120 mg 120 mg (rounded from 116 mg = 1 mg/kg 116 kg), Subcutaneous, Every 12 hours, First dose on Mon06/22/25 at 2100, Until Discontinued, Routine Given 06/25/2025 8:29 AM EDT 120 mg Left Lower Abdomen Given 06/24/2025 10:41 PM EDT 120 mg L eft Lower Abdomen Given 06/24/2025 8:33 AM EDT 120 mg Ri ght Lower Abdomen folic acid (Folvite) tablet 1 mg 1 mg, Oral, Daily, First dose on Mon06/13/25 at 1130, Until Discontinued, Routine Given 06/16/2025 8:02 AM EDT 1 mg Given 06/15/2025 8:24 AM EDT 1 mg Given 06/14/2025 8:03 AM EDT 1 mg folic acid (Folvite) tablet 1 mg 1 mg, Nasogastric, Daily, First dose (after last modification) on Mon06/17/25 at 0900, Until Discontinued, Routine Given 06/25/2025 8:29 AM EDT 1 mg Given 06/24/2025 8:33 AM EDT 1 mg Given 06/23/2025 8:31 AM EDT 1 mg furosemide (Lasix) injection 40 mg 40 mg, Intravenous, Once, 1 dose, On Mon06/13/25 at 0845, Routine Given 06/13/2025 8:50 AM EDT 40 mg furosemide (Lasix) tablet 20 mg 20 mg, Oral, Once, 1 dose, On Mon06/15/25 at 0930, Routine Given 06/15/2025 9:41 AM EDT 20 mg furosemide (Lasix) tablet 20 mg 20 mg, Per G Tube, Daily, 3 doses, First dose on Mon06/16/25 at 0900, Last dose on Mon06/18/25 at 0900, Routine Given 06/17/2025 8:39 AM EDT 20 mg Given 06/16/2025 8:02 AM EDT 20 mg furosemide (Lasix) tablet 40 mg 40 mg, Nasogastric, Once, 1 dose, On Mon06/18/25 at 1000, Routine Given 06/18/2025 10:31 AM EDT 40 mg glucagon (human recombinant) injection 1 mg 1 mg, Intramuscular, Every 15 min PRN, Starting on Mon06/16/25 at 0701, Until Mon06/25/25 at 2112, Routine, low blood sugar per Hypoglycemia Prevention and Treatment protocol glucose (Glutose) 40 % oral gel 15-30 grams of glucose 15-30 grams of glucose, Sublingual, Every 15 min PRN, Starting on Mon06/16/25 at 0701, Until Mon06/25/25 at 2112, Routine, low blood sugar, per Hypoglycemia Prevention and Treatment protocol heparin (porcine) injection 5,000 Units 5,000 Units, Subcutaneous, Once, 1 dose, On Mon06/12/25 at 1515, Routine, Holding - Preprocedure Given 06/12/2025 2:31 PM EDT 5,000 Units Right Lower Abdomen heparin (porcine) injection 5,000 Units 5,000 Units, Subcutaneous, Every 8 hours scheduled, First dose on Mon06/15/25 at 1415, Until Discontinued, Routine Given 06/22/2025 1:45 PM EDT 5,000 Units Left Lower Abdomen Given 06/22/2025 6:17 AM EDT 5,000 Units L eft Upper Arm (Back) Given 06/21/2025 9:58 PM EDT 5,000 Units L eft Lower Abdomen HYDROmorphone (Dilaudid) injection 0.25 mg 0.25 mg, Intravenous, Every 2 hour PRN, Starting on Eunice 06/12/25 at 2248, Until 06/14/25 at 2247, Routine, moderate pain Given 06/13/2025 12:42 AM EDT 0.2 5 mg HYDROmorphone (Dilaudid) injection 0.5 mg 0.5 mg, Intravenous, Every 2 hour PRN, Starting on Eunice 06/12/25 at 2248, Until 06/14/25 at 2247, Routine, severe pain Given 06/13/2025 7:51 PM EDT 0.5 mg Given 06/13/2025 2:03 PM EDT 0.5 mg Given 06/13/2025 10:44 AM EDT 0.5 mg insulin regular (HumuLIN R,NovoLIN R) 100 units/mL injection - Correction - Standard Dose 0-5 Units, Subcutaneous, Every 6 hours scheduled, First dose on Mon06/16/25 at 0800, Until Discontinued, Routine Given 06/18/2025 12:32 PM EDT 1 Units Left Lower Abdomen Given 06/18/2025 12:11 AM EDT 1 Units L eft Upper Abdomen Given 06/17/2025 5:46 PM EDT 1 Units Le ft Lower Abdomen iohexol (OMNIPaque) 300 MG/ML injection 100 mL 100 mL, Intravenous, Once in imaging, 1 dose, Starting on Mon06/22/25 at 0847, Until 06/22/25 at 0850, Routine, Imaging Protocol Orders Given 06/22/2025 8:50 AM EDT 100 mL iohexol (OMNIPaque) 350 MG/ML injection 100 mL 100 mL, Intravenous, Once in imaging, 1 dose, Starting on Mon06/22/25 at 1348, Until [place] 06/22/25 at 1416, Routine, Imaging Protocol Orders Given 06/22/2025 2:16 PM EDT 80 mL iothalamate meglumine (Cysto Conray) 17.2 % urethral solution solution 500 mL 500 mL, Urethral, Once in imaging, 1 dose, Starting on Mon06/20/25 at 0855, Until Mon06/20/25 at 0956, Routine, Imaging Protocol Orders Given 06/20/2025 9:56 AM EDT 250 mL ipratropium-albuterol (Duo-Neb) 0.5-2.5 mg/3 mL nebulizer solution 3 mL 3 mL, Nebulization, Every 6 hours RT, 8 doses, First dose on Eunice 06/12/25 at 2230, Last dose on Mon06/14/25 at 1500, Routine Given 06/14/2025 3:05 PM EDT 3 mL Given 06/14/2025 8:22 AM EDT 3 mL Given 06/14/2025 3:23 AM EDT 3 mL ipratropium-albuterol (Duo-Neb) 0.5-2.5 mg/3 mL nebulizer solution 3 mL 3 mL, Nebulization, Every 6 hours RT, 8 doses, First dose (after last reorder) on Mon06/14/25 at 2000, Last dose on Mon06/16/25 at 1500, Routine Given 06/16/2025 3:05 PM EDT 3 mL Given 06/16/2025 8:25 AM EDT 3 mL Given 06/16/2025 4:29 AM EDT 3 mL Abiel powder 1 packet 1 packet, Nasogastric, 2 times daily, First dose on Mon06/17/25 at 1430, Until Discontinued, Routine Given 06/25/2025 8:30 AM EDT 1 packet Given 06/24/2025 10:43 PM EDT 1 packet Given 06/24/2025 8:32 AM EDT 1 packet labetalol (Normodyne,Trandate) injection 10 mg 10 mg, Intravenous, Every 2 hour PRN, Starting on Mon06/17/25 at 2110, Until Mon06/25/25 at 211, Routine, high blood pressure, SBP>180 lactated Ringer's bolus 500 mL 500 mL, Intravenous, Once, 1 dose, On Mon06/13/25 at 0245, Administer over 30 Minutes, Routine New Bag 06/13/2025 2:09 AM EDT 500 mL 1000 mL/hr lactated Ringer's bolus 500 mL 500 mL, Intravenous, Once, 1 dose, On Mon06/13/25 at 1230, Administer over 2 Hours, Routine New Bag 06/13/2025 11:55 AM EDT 500 mL 250 mL/hr lactated Ringer's bolus 500 mL 500 mL, Intravenous, Once, 1 dose, On Mon06/13/25 at 1515, Administer over 2 Hours, Routine New Bag 06/13/2025 2:32 PM EDT 500 mL 250 mL/hr lactated Ringer's infusion 84 mL/hr, Intravenous, Continuous, Starting on Mon06/12/25 at 2130, Until 06/14/25 at 1353, Routine Rate/Dose Verify 06/14/2025 1:00 PM EDT 84 mL/hr 84 mL/hr Rate/Dose Verify 06/14/2025 12:00 PM EDT 84 mL/hr 84 mL/ hr Rate/Dose Verify 06/14/2025 11:00 AM EDT 84 mL/hr 84 mL/ hr lactulose (Chronulac) 10 GM/15ML solution 10 g 10 g, Oral, Daily, First dose on Mon06/20/25 at 0900, Until Discontinued, Routine Given 06/25/2025 8:31 AM EDT 10 g Given 06/24/2025 8:34 AM EDT 10 g Given 06/23/2025 8:31 AM EDT 10 g lactulose (Chronulac) 10 GM/15ML solution 30 g 30 g, Oral, Every 6 hours, First dose (after last modification) on Mon06/16/25 at 2000, Until Discontinued, Routine Given 06/16/2025 8:15 PM EDT 30 g lactulose (Chronulac) 10 GM/15ML solution 30 g 30 g, Nasogastric, 3 times daily, First dose (after last modification) on Mon06/17/25 at 0915, Until Discontinued, Routine Given 06/18/2025 8:31 AM EDT 30 g Given 06/17/2025 8:00 PM EDT 30 g Given 06/17/2025 3:13 PM EDT 30 g lactulose (Chronulac) 10 GM/15ML solution 30 g 30 g, Nasogastric, Once, 1 dose, On Mon06/19/25 at 0900, Routine Given 06/19/2025 9:06 AM EDT 30 g lidocaine (Lidoderm) 5 % patch 1 patch 1 patch, Apply externally, Every 24 hours, First dose on Mon06/12/25 at 2130, Until Discontinued, Administer over 12 Hours, Routine Medication Applied 06/20/2025 9:36 PM EDT 1 patch Abdominal Tissue Medication Applied 06/19/2025 9:44 PM EDT 1 patch Abdominal Tissue Medication Applied 06/18/2025 8:36 PM EDT 1 patch Left Lower Abdomen linezolid (Zyvox) injection 600 mg 600 mg, Intravenous, Every 12 hours, 10 doses, First dose on Mon06/15/25 at 1400, Last dose on Mon06/20/25 at 0200, Administer over 30 Minutes, Routine New Bag 06/17/2025 2:05 AM EDT 600 mg 600 mL/hr New Bag 06/16/2025 1:58 PM EDT 600 mg 600 mL/hr New Bag 06/16/2025 2:19 AM EDT 600 mg 600 mL/hr linezolid (Zyvox) tablet 600 mg 600 mg, Nasogastric, Every 12 hours, 5 doses, First dose on Mon06/17/25 at 1400, Last dose on Mon06/19/25 at 1400, Routine Given 06/19/2025 2:14 PM EDT 600 mg Given 06/19/2025 2:02 AM EDT 600 mg Given 06/18/2025 2:16 PM EDT 600 mg magnesium sulfate IVPB 4 g 4 g, Intravenous, Once, 1 dose, On Mon06/13/25 at 0000, Routine New Bag 06/12/2025 11:27 PM EDT 4 g 2 5 mL/hr melatonin tablet 3 mg 3 mg, Oral, Nightly PRN, Starting on Mon06/12/25 at 2039, Until Mon06/25/25 at 2111, Routine, Recovery(Phase II-Outpatient)/On Unit(Inpatient), sleep Given 06/23/2025 10:34 PM EDT 3 mg Given 06/23/2025 12:08 AM EDT 3 mg Given 06/21/2025 9:57 PM EDT 3 mg methocarbamol (Robaxin) tablet 750 mg 750 mg, Oral, 4 times daily, First dose on Mon06/12/25 at 2200, Until Discontinued, Routine, Recovery(Phase II-Outpatient)/On Unit(Inpatient) Given 06/16/2025 9:59 PM EDT 750 mg Given 06/16/2025 5:28 PM EDT 750 mg Given 06/16/2025 1:58 PM EDT 750 mg methocarbamol (Robaxin) tablet 750 mg 750 mg, Nasogastric, 4 times daily, First dose (after last modification) on Mon06/17/25 at 0900, Until Discontinued, Routine Given 06/25/2025 8:29 AM EDT 750 mg Given 06/24/2025 10:41 PM EDT 750 mg Given 06/24/2025 2:53 PM EDT 750 mg metOLazone (Zaroxolyn) tablet 5 mg 5 mg, Nasogastric, Once, 1 dose, On Mon06/18/25 at 1000, Routine Given 06/18/2025 10:31 AM EDT 5 mg mupirocin (Bactroban) 2 % ointment 1 Application Each Nostril, 2 times daily, 10 doses, First dose on Mon06/12/25 at 2330, Last dose on Mon06/17/25 at 0900, Routine Given 06/17/2025 8:38 AM EDT 1 Application Given 06/16/2025 8:15 PM EDT 1 Application Given 06/16/2025 8:02 AM EDT 1 Application norepinephrine 8 mg/250 mL (0.032 mg/mL) infusion 0-0.4 mcg/kg/min 109 kg (0-81.75 mL/hr), 0.032 mg/mL, Intravenous, Titrated, Starting on Mon06/13/25 at 1000, Until Mon06/14/25 at 0638, STAT Rate/Dose Verify 06/13/2025 5:00 PM EDT 0.01 mcg/kg/min 2.04 mL/hr Rate/Dose Change 06/13/2025 4:00 PM EDT 0.01 mcg/kg/min 2. 04 mL/hr Rate/Dose Verify 06/13/2025 3:00 PM EDT 0.02 mcg/kg/min 4. 09 mL/hr ondansetron (Zofran) injection 4 mg 4 mg, Intravenous, Every 6 hours PRN, Starting on Mon06/12/25 at 2040, Until Mon06/25/25 at 2112, Routine, Recovery(Phase II-Outpatient)/On Unit(Inpatient), nausea, vomiting Given 06/24/2025 3:00 PM EDT 4 mg pantoprazole (Protonix) injection 40 mg 40 mg, Intravenous, Daily, First dose on Mon06/13/25 at 1430, Until Discontinued, Routine Given 06/18/2025 8:31 AM EDT 40 mg Given 06/17/2025 8:38 AM EDT 40 mg Given 06/16/2025 8:02 AM EDT 40 mg piperacillin-tazobactam (Zosyn) 4.5 g in sodium chloride 0.9% 100 mL IVPB (vial adapter required) 4.5 g, Intravenous, Every 8 hours, 15 doses, First dose on Mon06/14/25 at 1115, Last dose on Mon06/19/25 at 0315, Routine New Bag 06/18/2025 10:31 AM EDT 4.5 g 36.7 mL/hr New Bag 06/18/2025 3:38 AM EDT 4.5 g 36.7 mL/hr New Bag 06/17/2025 6:41 PM EDT 4.5 g 36.7 mL/hr piperacillin-tazobactam (Zosyn) 4.5 g in sodium chloride 0.9% 100 mL IVPB (vial adapter required) 4.5 g, Intravenous, Every 8 hours, 2 doses, First dose (after last reorder) on Mon06/18/25 at 1945, Last dose on Mon06/19/25 at 0345, Routine New Bag 06/19/2025 3:52 AM EDT 4.5 g 36.7 mL/hr Bag 06/18/2025 6:53 PM EDT 4.5 g 36.7 mL/hr potassium & sodium phosphates (Phos-NaK) 280-160-250 MG packet 2 packet 2 packet, Per G Tube, 3 times daily, 3 doses, First dose on Mon06/16/25 at 0900, Last dose on Mon06/16/25 at 2100, Routine Given 06/16/2025 8:15 PM EDT 2 packets Given 06/16/2025 3:45 PM EDT 2 packets Given 06/16/2025 8:02 AM EDT 2 packets potassium chloride (Klor-Con) packet 20 mEq 20 mEq, Oral, Once, 1 dose, On Mon06/17/25 at 1515, Routine Given 06/17/2025 3:12 PM EDT 20 mEq potassium chloride (Klor-Con) packet 40 mEq 40 mEq, Oral, Every 2 hours, 2 doses, First dose on Mon06/16/25 at 0800, Last dose on Mon06/16/25 at 1000, Routine Given 06/16/2025 10:41 AM EDT 40 mEq Given 06/16/2025 8:02 AM EDT 40 mEq potassium chloride (Klor-Con) packet 40 mEq 40 mEq, Oral, Once, 1 dose, On Mon06/17/25 at 1400, Routine Given 06/17/2025 1:51 PM EDT 40 mEq potassium chloride (Klor-Con) packet 40 mEq 40 mEq, Oral, Once, 1 dose, On Mon06/18/25 at 0615, Routine Given 06/18/2025 5:37 AM EDT 40 mEq potassium chloride CR (Klor-Con) ER tablet 40 mEq 40 mEq, Oral, Once, 1 dose, On Mon06/24/25 at 0615, Routine Given 06/24/2025 8:33 AM EDT 40 mEq potassium chloride IVPB 10 mEq 10 mEq, Intravenous, Every 1 hour, 4 doses, First dose on Mon06/16/25 at 2045, Last dose on Mon06/16/25 at 2345, RoutineIndications:Hypokalemia New Bag 06/17/2025 12:30 AM EDT 10 mEq 100 mL/hr New Bag 06/16/2025 11:28 PM EDT 10 mEq 100 mL/hr New Bag 06/16/2025 9:58 PM EDT 10 mEq 100 mL/hr potassium chloride IVPB 10 mEq 10 mEq, Intravenous, Every 1 hour, 4 doses, First dose on Mon06/17/25 at 0445, Last dose on Mon06/17/25 at 0745, RoutineIndications:Hypokalemia New Bag 06/17/2025 7:30 AM EDT 10 mEq 100 mL/hr New Bag 06/17/2025 6:26 AM EDT 10 mEq 100 mL/hr New Bag 06/17/2025 5:24 AM EDT 10 mEq 100 mL/hr propofol (Diprivan) infusion 10 mg/mL - Pyxis Override Pull 1 dose, Starting on Mon06/12/25 at 2120, Until Mon06/12/25 at 2128 propofol (Diprivan) infusion 10 mg/mL 5-50 mcg/kg/min 109 kg (3.27-32.7 mL/hr), Intravenous, Titrated, Starting on Mon06/12/25 at 2215, Until Mon06/16/25 at 0842, Routine Rate/Dose Verify 06/15/2025 11:00 PM EDT 5 mcg/kg/min 3.27 mL/hr Restarted 06/15/2025 10:20 PM EDT 5 mcg/kg/min 3.27 mL/hr Restarted 06/15/2025 8:32 PM EDT 10 mcg/kg/min 6.54 mL/hr Protein Powder 1 packet 1 packet, Nasogastric, 3 times daily, First dose on Mon06/14/25 at 1600, Until Discontinued, Routine Given 06/17/2025 8:39 AM EDT 1 packet Given 06/16/2025 9:00 PM EDT 1 packet Given 06/16/2025 3:45 PM EDT 1 packet Protein Powder 2 packet 2 packet, Nasogastric, 2 times daily, First dose (after last modification) on Mon06/17/25 at 2100, Until Discontinued, Routine Given 06/25/2025 8:30 AM EDT 2 packets Given 06/24/2025 10:51 PM EDT 2 packets Given 06/24/2025 8:39 AM EDT 2 packets senna-docusate (Cari-Colace) 8.6-50 MG per tablet 1 tablet 1 tablet, Oral, Nightly, First dose on Eunice 06/12/25 at 2130, Until Discontinued, Routine, Recovery(Phase II-Outpatient)/On Unit(Inpatient) Given 06/16/2025 8:16 PM EDT 1 tablet Given 06/15/2025 9:02 PM EDT 1 tablet Given 06/14/2025 9:44 PM EDT 1 tablet senna-docusate (Cari-Colace) 8.6-50 MG per tablet 1 tablet 1 tablet, Nasogastric, Nightly, First dose (after last modification) on Mon06/17/25 at 2100, Until Discontinued, Routine Given 06/24/2025 10:41 PM EDT 1 tabl et Given 06/19/2025 8:54 PM EDT 1 tablet sodium chloride 0.9 % flush 10 mL 10 mL, Intravenous, Every 12 hours, First dose on Eunice 06/12/25 at 2130, Until Discontinued, Routine, Recovery(Phase II-Outpatient)/On Unit(Inpatient) Given 06/25/2025 8:36 AM EDT 10 mL Given 06/24/2025 10:44 PM EDT 10 mL Given 06/24/2025 8:45 AM EDT 10 mL sodium chloride 0.9 % flush 10 mL 10 mL, Intravenous, As needed, Starting on Mon06/12/25 at 2040, Until Mon06/25/25 at 2112, Routine, Recovery(Phase II-Outpatient)/On Unit(Inpatient), line care thiamine (Vitamin B-1) tablet 100 mg 100 mg, Nasogastric, Daily, First dose on Mon06/20/25 at 0900, Until Discontinued, Routine Given 06/25/2025 8:29 AM E DT 100 mg Given 06/24/2025 8:33 AM EDT 100 mg Given 06/23/2025 8:31 AM EDT 100 mg thiamine (Vitamin B-1) tablet 200 mg 200 mg, Nasogastric, Every 8 hours, 6 doses, First dose on Mon06/17/25 at 0930, Last dose on Mon06/19/25 at 0130, STAT Given 06/19/2025 12:32 AM EDT 200 mg Given 06/18/2025 5:48 PM EDT 200 mg Given 06/18/2025 8:31 AM EDT 200 mg thiamine (Vitamin B1) injection 200 mg 200 mg, Intravenous, Every 8 hours, 6 doses, First dose on Mon06/13/25 at 1130, Last dose on Mon06/15/25 at 0330, STAT Given 06/15/2025 2:30 AM EDT 200 mg Given 06/14/2025 6:31 PM EDT 200 mg Given 06/14/2025 11:05 AM EDT 200 mg vancomycin (Vancocin) 1,750 mg in sodium chloride 0.9 % 250 mL 1,750 mg (rounded from 1,635 mg = 15 mg/kg 109 kg), Intravenous, Once, 1 dose, On 06/14/25 at 1130, at 167.1 mL/hr, Routine Given 06/14/2025 1:07 PM EDT 1,750 mg 167.1 mL/h r documented in this encounter Active and Recently Administered Medications Times are shown in EDT. Scheduled Medication Order 06/23/2025 06/24/2025 06/25/2025 atorvastatin (Lipitor) tablet 10 mg 10 mg, Nasogastric, Nightly, First dose on Mon06/18/25 at 2100, Until Discontinued, Routine 214 (Given - Provider: Bianka Phillips, RN) 224 (Given - Provider: Gill White RN - Comment: pt care) 2099 (Canceled Entry - Provider: Automatic Discharge Provider - Comment: Automatically canceled at discontinue of medication order) bisacodyl (Dulcolax) suppository 10 mg 10 mg, Rectal, Daily, First dose on Mon06/16/25 at 0900, Until Discontinued, Routine 0832 (Not Given - Provider: Samia Santos RN - Reason: Patient/family refused) 1009 (Not Given - Provider: Jeff Gómez, RN - Reason: Patient/family refused) 1128 (Not Given - Provider: Jeff Gómez RN - Reason: Patient/family refused) carvedilol (Coreg) tablet 3.125 mg (CANCELED) 3.125 mg, Nasogastric, 2 times daily, First dose on Mon06/18/25 at 0900, Until Discontinued, Routine 0831 (Given - Provider: Samia Santos RN)214 (Given - Provider: Bianka Phillips, TIERA) 0833 (Given - Provider: Jeff Gómez, RN) carvedilol (Coreg) tablet 3.125 mg 3.125 mg, Oral, 2 times daily, First dose (after last modification) on Mon06/24/25 at 2100, Until Discontinued, Routine 224 (Given - Provider: Gill White RN - Comment: pt care) 08 (Given - Provider: Jeff Gómez, RN)2099 (Canceled Entry - Provider: Automatic Discharge Provider - Comment: Automatically canceled at discontinue of medication order) enoxaparin (Lovenox) syringe 120 mg 120 mg (rounded from 116 mg = 1 mg/kg 116 kg), Subcutaneous, Every 12 hours, First dose on Mon06/22/25 at 2100, Until Discontinued, Routine 0916 (Given - Provider: Samia Santos RN)214 (Given - Provider: Bianka Phillips, TIERA) 0833 (Given - Provider: Jeff Gómez, RN)224 (Given - Provider: Gill White RN - Comment: pt care) 0829 (Given - Provider: Jeff Gómez RN)2100 (Canceled Entry - Provider: Automatic Discharge Provider - Comment: Automatically canceled at discontinue of medication order) folic acid (Folvite) tablet 1 mg 1 mg, Nasogastric, Daily, First dose (after last modification) on Mon06/17/25 at 0900, Until Discontinued, Routine 0831 (Given - Provider: Samia Santos RN) 0833 (Given - Provider: Jeff Gómez RN) 0829 (Given - Provider: Jeff Gómez RN) Abiel powder 1 packet 1 packet, Nasogastric, 2 times daily, First dose on Mon06/17/25 at 1430, Until Discontinued, Routine 0832 (Given - Provider: Samia Santos RN)2100 (Not Given - Provider: Bianka Phillips RN - Reason: Patient/family refused) 0832 (Given - Provider: Jeff Gómez RN)2243 (Given - Provider: Gill White RN - Comment: pt care) 0830 (Given - Provider: Jeff Gómez RN)2100 (Canceled Entry - Provider: Automatic Discharge Provider - Comment: Automatically canceled at discontinue of medication order) lactulose (Chronulac) 10 GM/15ML solution 10 g 10 g, Oral, Daily, First dose on Mon06/20/25 at 0900, Until Discontinued, Routine 0831 (Given - Provider: Samia Santos RN) 0834 (Given - Provider: Jeff Gómez RN) 0831 (Given - Provider: Jeff Gómez RN) lidocaine (Lidoderm) 5 % patch 1 patch 1 patch, Apply externally, Every 24 hours, First dose on Mon06/12/25 at 2130, Until Discontinued, Administer over 12 Hours, Routine 2100 (Not Given - Provider: Bianka Phillips, TIERA - Reason: Patient/family refused) 224 (Not Given - Provider: Gill White RN - Reason: Patient/family refused - Comment: pt care) methocarbamol (Robaxin) tablet 750 mg 750 mg, Nasogastric, 4 times daily, First dose (after last modification) on Mon06/17/25 at 0900, Until Discontinued, Routine 0831 (Given - Provider: Samia N Tom, RN)1500 (Given - Provider: Samia Santos RN)1728 (Not Given - Provider: Samia Santos RN - Reason: Hold for condition: must add comment - Comment: sleeping)2143 (Given - Provider: Bianka Phillips RN) 1242 (Not Given - Provider: Jeff Gómez RN - Reason: Patient/family refused)1453 (Given - Provider: Jeff Gómez RN)1736 (Not Given - Provider: Jeff Gómez RN - Reason: Patient/family refused)2241 (Given - Provider: Gill White RN - Comment: pt care) 0829 (Given - Provider: Jeff Gómez, RN)1359 (Not Given - Provider: Jeff Gómez RN - Reason: Patient/family refused)1814 (Not Given - Provider: Jeff Gómez RN - Reason: Patient/family refused) potassium chloride CR (Klor-Con) ER tablet 40 mEq (COMPLETED) 40 mEq, Oral, Once, 1 dose, On Mon06/24/25 at 0615, Routine 0833 (Given - Provider: Jeff Gómez RN) Protein Powder 2 packet 2 packet, Nasogastric, 2 times daily, First dose (after last modification) on Mon06/17/25 at 2100, Until Discontinued, Routine 0832 (Given - Provider: Samia Santos RN)2100 (Canceled Entry - Provider: Automatic Discharge Provider - Comment: Automatically canceled at discontinue of medication order) 0839 (Given - Provider: Jeff Gómez RN)2251 (Given - Provider: Gill White RN - Comment: pt care) 0830 (Given - Provider: Jeff Gómez RN)2100 (Canceled Entry - Provider: Automatic Discharge Provider - Comment: Automatically canceled at discontinue of medication order) senna-docusate (Cari-Colace) 8.6-50 MG per tablet 1 tablet 1 tablet, Nasogastric, Nightly, First dose (after last modification) on Mon06/17/25 at 2100, Until Discontinued, Routine 2100 (Not Given - Provider: Bianka Phillips RN - Reason: Patient/family refused) 2241 (Given - Provider: Gill White RN - Comment: pt care) 2100 (Canceled Entry - Provider: Automatic Discharge Provider - Comment: Automatically canceled at discontinue of medication order) sodium chloride 0.9 % flush 10 mL(Linked Group 1) 10 mL, Intravenous, Every 12 hours, First dose on Mon06/12/25 at 2130, Until Discontinued, Routine, Recovery(Phase II-Outpatient)/On Unit(Inpatient) 0832 (Given - Provider: Samia Santos, RN)2130 (Canceled Entry - Provider: Automatic Discharge Provider - Comment: Automatically canceled at discontinue of medication order) 0845 (Given - Provider: Jeff Gómez, RN)2244 (Given - Provider: Gill White RN) 0836 (Given - Provider: Jeff Gómez, RN) thiamine (Vitamin B-1) tablet 100 mg 100 mg, Nasogastric, Daily, First dose on Mon06/20/25 at 0900, Until Discontinued, Routine 0831 (Given - Provider: Samia Santos RN) 0833 (Given - Provider: Jeff Gómez, RN) 0829 (Given - Provider: Jeff Gómez, RN) PRN Medication Order 06/23/2025 06/24/2025 06/25/2025 dextrose 10 % (D10W) bolus 125 mL(Linked Group 2) 125 mL, Intravenous, Every 15 min PRN, Starting on Mon06/16/25 at 0701, Until Mon06/25/25 at 211, Administer over 15 Minutes, Routine, low blood sugar BG 51-89 mg/dL dextrose 10 % (D10W) bolus 250 mL(Linked Group 2) 250 mL, Intravenous, Every 15 min PRN, Starting on Mon06/16/25 at 0701, Until Mon06/25/25 at 211, Administer over 15 Minutes, Routine, PRN low blood sugar BG =/<50 mg/dL glucagon (human recombinant) injection 1 mg(Linked Group 2) 1 mg, Intramuscular, Every 15 min PRN, Starting on Mon06/16/25 at 0701, Until Mon06/25/25 at 211, Routine, low blood sugar per Hypoglycemia Prevention and Treatment protocol glucose (Glutose) 40 % oral gel 15-30 grams of glucose(Linked Group 2) 15-30 grams of glucose, Sublingual, Every 15 min PRN, Starting on Mon06/16/25 at 0701, Until Mon06/25/25 at 2111, Routine, low blood sugar, per Hypoglycemia Prevention and Treatment protocol labetalol (Normodyne,Trandate) injection 10 mg 10 mg, Intravenous, Every 2 hour PRN, Starting on Mon06/17/25 at 2109, Until Mon06/25/25 at 2111, Routine, high blood pressure, SBP>180 melatonin tablet 3 mg 3 mg, Oral, Nightly PRN, Starting on Mon06/12/25 at 2039, Until Mon06/25/25 at 2111, Routine, Recovery(Phase II-Outpatient)/On Unit(Inpatient), sleep 0008 (Given - Provider: Shanique Ruffin, RN)2234 (Given - Provider: Bianka Phillips, TIERA) ondansetron (Zofran) injection 4 mg 4 mg, Intravenous, Every 6 hours PRN, Starting on Mon06/12/25 at 2039, Until Mon06/25/25 at 2111, Routine, Recovery(Phase II-Outpatient)/On Unit(Inpatient), nausea, vomiting 1500 (Given - Provider: Jeff Gómez, TIERA) sodium chloride 0.9 % flush 10 mL(Linked Group 1) 10 mL, Intravenous, As needed, Starting on Mon06/12/25 at 2039, Until Mon06/25/25 at 2111, Routine, Recovery(Phase II-Outpatient)/On Unit(Inpatient), line care Linked Groups Order Group 1: Insert peripheral IV (COMPLETED) Once, On Mon06/12/25 at 2040, For 1 occurrence, Recovery(Phase II-Outpatient)/On Unit(Inpatient) And Saline lock IV (CANCELED) Once, On Mon06/12/25 at 2040, For 1 occurrence, Recovery(Phase II-Outpatient)/On Unit(Inpatient) And sodium chloride 0.9 % flush 10 mLJump to med 10 mL, Intravenous, Every 12 hours, First dose on Mon06/12/25 at 2129, Until Discontinued, Routine, Recovery(Phase II-Outpatient)/On Unit(Inpatient) And sodium chloride 0.9 % flush 10 mLJump to med 10 mL, Intravenous, As needed, Starting on Mon06/12/25 at 2039, Until Mon06/25/25 at 2111, Routine, Recovery(Phase II-Outpatient)/On Unit(Inpatient), line care Group 2: glucose (Glutose) 40 % oral gel 15-30 grams of glucoseJump to med 15-30 grams of glucose, Sublingual, Every 15 min PRN, Starting on Mon06/16/25 at 0701, Until Mon06/25/25 at 2111, Routine, low blood sugar, per Hypoglycemia Prevention and Treatment protocol Or dextrose 10 % (D10W) bolus 125 mLJump to med 125 mL, Intravenous, Every 15 min PRN, Starting on Mon06/16/25 at 0701, Until Mon06/25/25 at 2111, Administer over 15 Minutes, Routine, low blood sugar BG 51-89 mg/dL Or dextrose 10 % (D10W) bolus 250 mLJump to med 250 mL, Intravenous, Every 15 min PRN, Starting on Mon06/16/25 at 07, Until Mon06/25/25 at 2111, Administer over 15 Minutes, Routine, PRN low blood sugar BG =/<50 mg/dL Or glucagon (human recombinant) injection 1 mgJump to med 1 mg, Intramuscular, Every 15 min PRN, Starting on Mon06/16/25 at 07, Until Mon06/25/25 at 2111, Routine, low blood sugar per Hypoglycemia Prevention and Treatment protocol documented in this encounter Additional Health Concerns 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 difficile Rule-Out 06/23/2025 06/23/20252024 11:44 AM EDT Assessment Noted Time PHQ-9 Depression Total Score: 0 04/29/20 25 12:43 PM EDT A fall risk assessment has been complete d for the patient 04/29/2025 12:44 PM EDT A Body Mass Index follow-up plan has been documented for the patient 06/25/2025 5:19 PM EDT documented as of this encounter Care Teams Records Section Supervisor Relationship Specialty Start Date End Date Murray Prajapati MD [address] [place] [address] [address] [facility] PCP - General 03/06/23 Jaja Camara APRN [address] [place] [id number] Referring Physician Gastroenterology 03/06/23 Dyllan Pual MD [address] [id number] Surgeon Urology 04/29/25 documented as of this encounter
--- OUTSIDE RECORDS SUMMARY | 2025-06-28 21:28 | XMS_ITS | Encounter Summary ---
Author Organization [facility] Address [address] [place] [address] Care Team Providers Care Deputy Chief Magistrate Name Role Phone Murray Prajapati MD Primary Care Provider [phone] Jaja Camara KEEPER HELPER Unavailable [phone] Dyllan Paul MD Unavailable [phone] Marlin Martinez RN Unavailable Unavailable Reason for Referral * Consultation (Routine) - Authorized Specialty Diagnoses / Procedures Referred By Silverio barone Referred To Contact Gastroenterology Diagnoses Right ureteral stone Cirrhosis of liver with ascites, unspecified hepatic cirrhosis type Quentin Anderson MD [address] [place] [address] Phone: tel: fax: [facility] [address] [place] [address] Phone: tel: fax: Referral ID Status Reason Start Date Expiration Date Visits Requested Visits Authorized [id number] Authorized Specialty Services Required 07/04/2025 01/03/2027 1 1 * Consultation (Routine) - Authorized Specialty Diagnoses / Procedures Referred By Silverio barone Referred To Contact Urology Diagnoses Right ureteral stone Cirrhosis of liver with ascites, unspecified hepatic cirrhosis type Quentin Anderson MD [address] [place] [address] Phone: tel: fax: [facility] [address] [place] [address] Phone: tel: fax: Referral ID Status Reason Start Date Expiration Date Visits Requested Visits Authorized [id number] Authorized Specialty Services Required 07/04/2025 01/03/2027 1 1 Reason for Visit * Reason Comments Fever Post-op Problem Fatigue * Auth/Cert (Routine) Specialty Diagnoses / Procedures Referred By Contac t Referred To Contact Diagnoses Sepsis, localized, in operative wound (CMS/HCC) Lizzie Cadena MD [address] [place] [address] Phone: tel: fax: [facility] Inpatient [address] [place] [address] Referral ID Status Reason Start Date Expiration Date Visits Re quested Visits Authorized [id number] 1 1 Encounter Details Date Type Department Care Team (Latest Contact Info) Description 06/28/2025 9:28 PM EDT - 07/04/2025 2:50 PM EDT Hospital Encounter [facility] Inpatient [address] [place] [address] Rg Coleman MD [address] [id number] Kj Santos MD [address] [place] [address] Lizzie Cadena MD [address] [place] [address] Lizzie Biggs MD [address] [place] [address] Quentin Anderson MD [address] [place] [address] Lamberto Sales MD [address] [place] [address] Febrile illness (Primary Dx); Hypotension, unspecified [...] any time in the past 12 [facility], were you homeless or living in a usp (including now)? 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 [...] liver with ascites, unspecified hepatic cirrhosis type Take 1 tablet by mouth daily for 9 doses. 9 tablet 07/05/2025 5 levoFLOXacin (Levaquin) 750 MG tabletIndications :Right ureteral stone,Cirrhosis of liver with ascites, unspecified hepatic cirrhosis type Take 1 tablet by mouth daily for 4 doses. 4 tablet 07/04/2025 5 metroNIDAZOLE (Flagyl) 500 MG tabletIndications :Right ureteral stone,Cirrhosis of liver with ascites, unspecified hepatic cirrhosis type Take 1 tablet by mouth every 8 [...] PCP name and Address: Murray Prajapati MD [address] [place] [address] [address] / [place] [address] Referring provider name and address: No referring [...] known as: Micotin Apply to affected areas alsbllaviiym-hqdh-vnqganlc-folic acid chewable tablet Chew 1 tablet daily. [...] Your Medications These medications were sent to [facility] - [place], [place] - [address] [facility] [id number] acetaminophen 500 MG tablet fluconazole 200 MG [...] A 07/22/2025 8:45 AM Dyllan Paul MD [facility] Test Results Pending At Discharge Pending [...] preparation for this discharge. Quentin Anderson MD, [facility], FACP Senior Embedded Software Engineer Division of Hospital Medicine * Progress Notes - Bianka Hansen MD - 07/04/2025 2:06 PM EDT [facility] Urology Inpatient Progress Note Primary Attending: [...] Hansen MD Department of Urology, PGY-1 Pager: [phone] Cosigned by Dyllan Paul MD at 07/07/2025 7:10 PM EDT Associated attestation - Dyllan Paul MD - 07/07/2025 7:10 PM EDT I saw and evaluated the patient. I discussed the case with the resident/fellow and agree with the findings and plan as documented. * Nursing Note - Ju Herrera RN - 07/04/2025 2:00 PM EDT Patient AVS summary printed and discharge education provided. [id number] delivered at bedside. PIVs removed with tips [...] Injury Intervention: Prevent Infection Flowsheets (Taken 07/04/2025 1159) Infection Prevention: visitors restricted/screened cohorting utilized Problem: [...] Integrity Intervention: Optimize Skin Protection Flowsheets Taken 07/04/2025 115 by Ju Herrera RN Skin Protection: protective footwear used Head of Bed (HOB) Positioning: HOB at 30-45 degrees Taken 07/03/2025 185 by Jackeline Deleon, TIERA Activity Management: activity adjusted per tolerance Taken 07/03/2025 0006 by Marielena Munoz, TIERA Pressure Reduction Techniques: frequent weight shift encouraged Problem: Fall Injury Risk Goal: Absence of Fall and Fall-Related Injury Intervention: Identify and Manage Contributors Flowsheets Taken 07/04/2025 115 by Ju Herrera RN Self-Care Promotion: meal set-up provided adaptive equipment use encouraged Taken 07/03/2025 1117 by Jing Field RN Medication Review/Management: medications reviewed Problem: Fall Injury Risk Goal: Absence of Fall and Fall-Related Injury Intervention: Promote Injury-Free Environment Flowsheets (Taken 07/04/2025 1000) Safety Promotion/Fall Prevention: clutter-free environment maintained lighting adjusted room organization consistent safety round/check completed Problem: Pain Acute Goal: Optimal Pain Control and Function Intervention: Prevent or Manage Pain Flowsheets (Taken 07/03/2025 1117 by Jing Field RN) Sensory Stimulation Regulation: care clustered Bowel [...] round/check completed Taken 07/03/2025 1850 by Jackeline Deleon, RN Activity Management: activity adjusted per tolerance Problem: Self-Care Deficit Goal: Improved Ability to Complete Activities of Daily Living Intervention: Promote Activity and Functional [place] Flowsheets Taken 07/04/2025 1159 by Ju Herrera [...] from the original note were not included. [id number] Using an Incentive Spirometer An incentive spirometer [...] rate Last Reviewed Date: 2025 00:00:00 ?? [employer]. All rights reserved. This information is not [...] the video go to this web address: [email or web address] Or, scan this QR code with your smart phone Last Reviewed Date: 2020 00:00:00 ?? [employer]. All rights reserved. This information is not intended as a substitute for professional medical care. Always follow your healthcare professional's instructions. * Ju Admason RN - 07/04/2025 11:53 AM EDT Images [...] Note Scout Lowe 70 y.o. male CSN: [id number] Admission: 06/28/2025 9:28 PM Primary Problem: Sepsis, localized, in operative wound (CMS/HCC) Primary Road Machinery Inspector: Primary Caregiver: Self Assistance Available at Discharge: Availability of Care Givers (#Hours): 24 hours Family/Road Machinery Inspector(s) Willingness Assessed to care for patient at home: Yes (pt's present at bedside) Family/Road Machinery Inspector(s) Readiness Assessed to care for patient at [...] Intervention: Prevent Skin Injury Flowsheets (Taken 07/03/2025 185 by Jackeline Deleon, RN) Body Position: foot of bed elevated neutral body alignment Skin Protection: transparent dressing maintained protective footwear used Intervention: Prevent and Manage VTE (Venous Thromboembolism) Risk Flowsheets (Taken 07/03/2025 1915 by Jackeline Deleon, RN) VTE Prevention/Management: bilateral [...] Skin Protection Flowsheets Taken 07/03/20251849 by Jackeline Deleon RN Activity Management: activity adjusted per tolerance Taken 07/03/20255 by Marielena Munoz RN Pressure Reduction Techniques: frequent weight shift encouraged Intervention: Promote and Optimize Oral Intake Flowsheets (Taken 07/03/20255 by Marielena Munoz, RN) Oral Nutrition Promotion: social interaction promoted Nutrition [...] Activity Flowsheets Taken 07/03/2025 1850 by Jackeline Deleon, TIERA Activity Management: activity adjusted per tolerance Taken 07/03/2025 111 by Jing Field, TIERA Safety Promotion/Fall Prevention: activity supervised Self-Care Promotion: independence encouraged Problem: Self-Care Deficit Goal: Improved Ability to Complete Activities of Daily Living Outcome: Ongoing, Progressing Intervention: Promote Activity and Functional [place] Flowsheets (Taken 07/03/20251116 by Jing Field, TIERA) [...] Postoperative Diagnosis: Same Surgeon: Dyllan Paul MD Executive Director Surgeon: Sherry Santos MD Intraoperative Findings: Intraoperative [...] chloride, 10 mL, PRN Quentin Anderson MD, [facility], FACP Senior Embedded Software Engineer Division of Hospital Medicine * Care Plan - Jing Field RN - 07/03/2025 11:21 AM EDT Problem: Adult Inpatient Plan of Care Goal: Plan of Care Review Outcome: Ongoing, Progressing Flowsheets Taken 07/03/2025 1117 by Jing Field, RN Progress: improving Plan of Care Reviewed With: patient Taken 07/01/2025 0751 by Anastasia Satrr RN Outcome Evaluation: patient will have adequate [...] Manage Infection Flowsheets Taken 07/03/20251116 by Jing Field, TIERA Fever Reduction/Comfort Measures: lightweight bedding Taken 07/03/2025 0006 by Marielena Munoz, TIERA Infection Management: aseptic [...] Ongoing, Progressing Intervention: Promote Activity and Functional [place] Flowsheets (Taken 07/03/2025 1117) Activity Assistance Provided: [...] Balance and Safe Activity Flowsheets (Taken 07/03/2025 000) Activity Management: activity adjusted per tolerance Safety Promotion/Fall Prevention: activity supervised Self-Care Promotion: independence encouraged BADL personal objects within reach Problem: Self-Care Deficit Goal: Improved Ability to Complete Activities of Daily Living Outcome: Ongoing, Progressing Intervention: Promote Activity and Functional [place] Flowsheets (Taken 07/03/20255) Activity Assistance Provided: assistance, [...] Anderson MD - 07/02/2025 3:24 PM EDT [facility] MEDICINE PROGRESS NOTE HPI: 70 y.o. year [...] chloride, 10 mL, PRN Quentin Anderson MD, [facility], FACP Senior Embedded Software Engineer Division of Hospital Medicine * Care Plan [...] Prevention/Management: medication Intervention: Prevent Infection Flowsheets (Taken 07/02/20251044) Infection Prevention: environmental surveillance performed Goal: Optimal [...] Intervention: Identify and Manage Contributors Flowsheets (Taken 07/02/20251044) Medication Review/Management: medications reviewed Self-Care Promotion: independence [...] Ongoing, Progressing Intervention: Promote Activity and Functional [place] Flowsheets (Taken 07/02/20251044) Self-Care Promotion: independence encouraged [...] Prevention/Management: medication Intervention: Prevent Infection Flowsheets (Taken 07/01/2025 2332) Infection Prevention: environmental surveillance performed Goal: Optimal [...] Ongoing, Progressing Intervention: Promote Activity and Functional [place] Flowsheets (Taken 07/01/2025 2332) Activity Assistance Provided: assistance, 2 people Self-Care [...] chloride, 10 mL, PRN Quentin Anderson MD, [facility] Senior Embedded Software Engineer Division of Hospital Medicine * Progress Notes - Richa Raymundo RN - 07/01/2025 1:30 PM EDT Case Management Adult Initial Progress Note Scout Lowe 70 y.o. male CSN: [id number] Admission: 06/28/2025 9:28 PM Primary Problem: Sepsis, localized, in operative wound (CMS/HCC) Ems Educator reviewed chart and spoke with pt and patient's to complete this Initial Case Management Assessment. PCP: Murray Prajapati MD Emergency Contact: Extended Emergency Contact Information Primary Emergency Contact: JAVON LOWE Mobile Relation: Spouse Shirt Turner needed? No Insurance: Primary Visit Coverage Payer Plan Sponsor Code Group Number Group Name DANIKA GARNICA EDUIN/[place] [facility] [id number] Primary Visit Coverage Subscriber Subscriber ID Subscriber Name Subscriber [facility] Subscriber Address [id number] JAVON LOWE [id number] [place] [address] Secondary Visit Coverage Payer Plan Sponsor Code Group Number Group Name MEDICARE MEDICARE PART A ONLY Secondary Visit Coverage Subscriber Subscriber ID Subscriber Name Subscriber [facility] Subscriber Address [id number] SCOUT LOWE [id number] [place] [address] Patient information: Primary Caregiver: Self Accompanied by/Relationship: shalom Calvo Support System: Immediate family Daily Living Activities: Functional Status: Independent Living Arrangements: Family Type of Residence: Single Level [address] [place], [place] [address] [place] [address] Current DME: Equipment Currently Used at Home: walker, rolling, tub bench Anticipated Discharge Date: TBD Patient's Discharge Goal: to d/c home with his once medically appropriate Assistance Available at Discharge: as needed Discharge Transport: family Follow Up Transport: family Home Health / Home Infusion / Outpatient Dialysis Services: n/a Living Will/Advance Directive/Power of Precinct Police Captain /Guardian: Have you reviewed your Advance Directive [...] tub bench. Pt's EC is his Javon, ph#[phone]. Pt was evaluated by PT/OT and currently has home w/assist recs and no DME. Per pt his family will provide him with transportation home at d/c and assistance as needed. RN CM will continue to follow and assist with d/c plan and as needed. Richa Raymundo RN * Progress Notes - Bianka Hansen MD - 07/01/2025 11:20 AM EDT [facility]rology Inpatient Progress Note Primary Attending: [...] shifts: In: 3473.3 (32 mL/kg) [P.O.:1440; IV Piggyback:3.3] Out: 1025 (9.4 mL/kg) [Urine:1025 (0.3 mL/kg/hr)] [...] and pt's adequate urine output. Will con mortgage branch manager stenting pt on if he is not [...] Intervention: Optimize Skin Protection Flowsheets Taken 07/01/2025 0200 by Faby Paige RN Head of Bed (HOB) Positioning: HOB elevated Taken 06/30/20251999 by Faby Paige RN Activity Management: activity adjusted per tolerance activity encouraged Skin Protection: incontinence pads utilized Taken 06/29/20251737 by Kassandra Handy, TIERA Pressure Reduction Techniques: [...] Manage Contributors Flowsheets (Taken 06/29/20251737 by Kassandra Handy RN) Medication Review/Management: medications reviewed Self-Care Promotion: [...] Ongoing, Progressing Intervention: Promote Activity and Functional [place] Flowsheets Taken 06/30/20251999 by Faby Paige RN Activity Assistance Provided: assistance, 2 people Taken 06/29/2025 1738 by Kassandra Handy RN Self-Care Promotion: independence encouraged BADL personal objects within reach BADL personal routines maintained * Progress Notes - Lizzei Biggs MD - 06/30/2025 7:12 PM EDT [...] pressor support, who presented who presents to [facility] on on 06/28/2025 with chief complaint of [...] complicates all aspects of care Dr. Biggs [facility] Medicine * Progress Notes - Agatha Cruz, [...] [facility] Pharmacy will continue to follow, Agatha Cruz, Gu[place] 06/30/2025 3:20 PM * Progress Notes - [...] 06/12/2025 Severe obesity (BMI 35.0-39.9) with comorbidity ([facility]) 06/03/2025 Procedures Past Medical History Patient has a past medical history of Cancer ([facility]) (january 26, 2025), Cirrhosis ([facility]) (2021),History of methicillin resistant Staphylococcus aureus [...] a 70 y/o male who presents to [facility] with possible sepsis. Participants in [...] admission Level of Mobility: Ambulatory- community Mobility [place]: Independent gait without device History of Falls: [...] Mobility Bed Mobility Exam: Scooting/Bridging Level of Court[place]: Stand-by assist Physical/Nonphysical Assist: Supervision Bed Mobility Exam: Supine to Sit Level of [place]: Stand-by assist Physical/Nonphysical Assist: Supervision Transfers Transfer Exam: Sit to stand Level of [place]: Stand-by assist Assistive Device: Hand held assist Transfer Exam: Stand to Sit Level of [place]: Stand-by assist Physical/Nonphysical Assist: Supervision Assistive Device: Hand held assist Ambulation Device: No device Assistance: Standby assist Distance : 5 ft. to recliner Ambulation Comments: Patient demonstrates decreased ashley and step length with no loss of balance Standardized Assessments Standardized Assessments Standardized Assessments: [facility] 6-Clicks Mobility Assessment [facility] 6-Clicks Mobility Assessment Difficulty patient has turning [...] 3-5 steps with a railing?: A little [facility] 6-Clicks Mobility Assessment Total : 18 Standardized Assessments Standardized Assessments Standardized Assessments: [facility] 6-Clicks Mobility Assessment [facility] 6-Clicks Mobility Assessment Difficulty patient has turning [...] 3-5 steps with a railing?: A little [facility] 6-Clicks Mobility Assessment Total : 18 No [...] Hansen MD - 06/30/2025 1:15 PM EDT [facility] Inpatient Progress Note Primary Attending: [...] days Lab Units 06/29/25 0200 COLOR UA [place] SPEC GRAV U 1.030 PH UA 5.5 [...] work-up of Sepsis, localized, in operative wound ([facility]/HCC). Problem List Active Hospital Problems Diagnosis [...] admission Level of Mobility: Ambulatory- community Mobility [place]: Independent gait without device History of Falls: [...] Mobility Bed Mobility Exam: Scooting/Bridging Level of [place]: Stand-by assist Physical/Nonphysical Assist: Supervision Bed Mobility Exam: Supine to Sit Level of [place]: Stand-by assist Physical/Nonphysical Assist: Supervision Transfers Transfer Exam: Sit to stand Level of [place]: Stand-by assist Assistive Device: Hand held assist Transfer Exam: Stand to Sit Level of [place]: Stand-by assist Physical/Nonphysical Assist: Supervision Assistive Device: Hand held assist Functional Mobility Device: No device Assistance: Standby assist Distance : 5 ft. to recliner Self-Care Interventions Lower Extremity Dressing Sock Level of Assistance: Maximum assistance LE Dressing Where Assessed: Bed level Toileting Toileting Adaptive Equipment: Catheterization equipment Toileting Level of Assistance: Dependent Where Assessed: Bed level Toileting Interventions: use of Kybalion system Standardized Assessments [facility] 6-Click Daily Activities Help from Other: Don/Doff Regular Lower Body Clothings: Little Help From Other: Bathing: Little Help From Other: Toileting: Little Help From Other: Don/Doff Upper Body Clothings: None Help From Other: Grooming: None Help From Other: Eating Meals: None [facility] 6 Click - Daily Activities Score: 21 [...] Comfort Flowsheets (Taken 06/30/2025 0239 by Denae Lowe, RN) Pain Management Interventions: medication (see MAR) [...] adjusted per tolerance Taken 06/29/20251737 by Kassandra Handy, RN Pressure Reduction Techniques: frequent weight shift [...] Intervention: Prevent Skin Injury Flowsheets Taken 06/29/2025 1738 Skin Protection: silicone foam dressing in place Taken 06/29/2025 1600 Body Position: weight shifting Intervention: Prevent and Manage VTE (Venous Thromboembolism) Risk Flowsheets (Taken 06/29/2025 1600) VTE Prevention/Management: bilateral SCDs (sequential compression devices) on Intervention: Prevent Infection Flowsheets (Taken 06/29/2025 1523 by Tenisha Amador, RN) Infection Prevention: environmental surveillance performed Goal: Optimal Comfort and Wellbeing Outcome: Ongoing, Progressing Intervention: Monitor Pain and Promote Comfort Flowsheets (Taken 06/29/2025 152 by Tenisha Amador RN) Pain Management Interventions: breathing exercises Intervention: Provide Person-Centered Care Flowsheets (Taken 06/29/2025 152 by Tenisha Amador RN) Trust Relationship/Rapport: care explained Problem: Skin Injury Risk Increased Goal: Skin Health and Integrity Outcome: Ongoing, Progressing Intervention: Optimize Skin Protection Flowsheets Taken 06/29/2025 173 Pressure Reduction Techniques: frequent weight shift encouraged heels elevated off bed Pressure Reduction Devices: specialty bed utilized Skin Protection: silicone foam dressing in place Taken 06/29/2025 1600 Activity Management: activity adjusted per tolerance Head of Bed (HOB) Positioning: HOB at 30 degrees Intervention: Promote and Optimize Oral Intake Flowsheets Taken 06/29/20251737 by Kassandra aHndy RN Nutrition Interventions: supplemental drinks provided Taken [...] Environment Flowsheets (Taken 06/29/2025 152 by Tenisha Amador RN) Safety Promotion/Fall Prevention: activity supervised * Consults - Lillian Martin - 06/29/2025 10:25 AM EDTAssociated Order(s): IP CONSULT TO NUTRITION SERVICES Adult Nutrition Evaluation Note Scout Lowe 70 y.o. male CSN: [id number] Room/Bed 205/ Nutrition evaluation type: assessment Reason for evaluation: [...] 34.69 Weight Evaluation: Obese-Class 1 (BMI 30-34.9) [place] Body Weight (kg): 72.7 Percent [place] Body Weight: 147 Wt Readings from Last [...] Regular Adult Carbohydrate Restriction: Consistent CHO 2 (4517-4075 Duong, 80 g/meal) Fat Restriction: Low fat Modified Calorie/ Protein: High calorie, high protein Diet Experience and Nutrition History: Diet Education Provided: Will monitor Pertinent home medications: Latter Day needs: Nutrition Focused Physical Exam: Unable to [...] pressor support, who presented who presents to [facility] on on 06/28/2025 with chief complaint of [...] since 05/29/25 Location Start Date End Date [place] ([facility]) 06/01/25 06/02/25 Allergies: Patient has no known [...] Procedure Component Value Units Date/Time Urine Culture [id number] Collected: 06/29/25 0200 Order Status: Sent Specimen: Urine, Clean Catch Updated: 06/29/25 0401 Blood Culture (Aerobic/Anaerobet Set) [id number] Collected: 06/28/252138 Order Status: Completed Specimen: Blood from Arm, Right Updated: 06/29/25 0009 Culture Culture in lab Blood Culture (Aerobic/Anaerobet Set) [id number] Collected: 06/28/252138 Order Status: Completed Specimen: Blood [...] pressor support, who presented who presents to [facility] on on 06/28/2025 with chief complaint of [...] 750 mg, Oral, 4 times daily PRN thwhugewvxdh-xlju-jczapuhc-folic acid (Centrum) chewable tablet 1 tablet, Daily [...] 07/02/2025 9:10 AM Patricia Strauss APRN [facility] [place] 07/22/2025 7:[address] [facility] 07/22/2025 8:45 AM Dyllan Paul MD [facility] Homero Gutierrez APRN, DNP [1] Past [...] MD Consult ordered by: Kj Santos MD [facility] Consult Note 06/29/25 Service Requesting [...] 750 mg, Oral, 4 times daily PRN xhrtzdhhclhl-hwvw-hzthisjc-folic acid (Centrum) chewable tablet 1 tablet, Daily [...] days Lab Units 06/29/25 0200 COLOR UA [place] SPEC GRAV U 1.030 PH UA 5.5 PROTEIN UR mg/dL Trace* GLUCOSE UA mg/dL Negative KETONES UA mg/dL Trace* LEUKOCYTES UA Small* NITRITE UA Negative Results from last 7 days Lab Units 06/29/25 0200 COLOR UA [place] SPEC GRAV U 1.030 PH UA 5.5 [...] Total DLP (Dose-Length Product): 2949.46 mGy.cm (accession [id number]), 2949.46 mGy.cm (accession [id number]). Please note: The reported value represents the [...] fluid Eugene Ruggiero MD Urology PGY-3 Pager: [phone] - I addended plan after rounding with attending Dr. Hilario- MPB Bianka Hansen MD Department of Urology, PGY-1 Pager: [phone] [1] Past Medical History: Diagnosis Date Cancer [...] supervised Intervention: Prevent Skin Injury Flowsheets (Taken 06/29/2025 152) Body Position: education provided Intervention: Prevent and [...] Allergies: Allergies[5] Physical Exam ED Triage Vitals [06/28/259] Temp Heart Rate Resp BP 36.8 ??C [...] 100 mL 100 mL Intravenous Given 06/28/2025 2307 EDT morphine PF 4 mg 4 mg Intravenous Given 06/28/2025 2308 EDT lactated Ringer's infusion 1,000 mL 0 mL Intravenous Stopped 06/28/2025 2308 EDT piperacillin-tazobactam (Zosyn) 4.5 g in sodium chloride 0.9% 100 mL IVPB (vialadapter required) 0 g Intravenous Stopped 06/28/2025 230 EDT vancomycin (Vancocin) 2,750 mg in sodium [...] at 12.3 [BN] 2350 CMP(!) LALITA with [employer] Front Desk Clerk 1.49 (already getting IVF repletion). Sodium 131, [...] w/u notable for: WBC 24k, LALITA with [employer] Front Desk Clerk 1.49, Na 131, CRP 63.6, UA with [...] Date Cancer (CMS/HCC) january 26, 2025 Cirrhosis ([facility]) 2021 History of methicillin resistant Staphylococcus [...] Known Allergies Amaury Muhammad MD Resident 06/30/25 [id number] Cosigned by Rg Coleman MD at 07/06/2025 [...] malaise. 100.8 at home. 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 Tachy at 112 BG documented in this encounter Plan of Treatment Upcoming Encounters Date Type Department Care Team (Latest Contact Info) Description 08/22/2025 9:00 AM EDT Office Visit [facility] Nephrology, Bone & Mineral Metabolism [address], [address] [place] [address] Kathia Watkins MD [address] [facility] [address] [place] [address] 08/28/2025 7:30 AM EDT Hospital Encounter [facility] [address] [place] [address] Dyllan Paul MD [address] [place] [id number] 08/28/2025 7:30 AM EDT Anesthesia Event [facility] [address] [place] [address] Lalito, Paige S, KEEPER HELPER [address] [place] [address] 08/28/2025 7:30 AM EDT - 08/28/2025 9:15 AM EDT Surgery [facility] [address] [place] [address] Dyllan Paul MD [address] [place] [address] URETEROSCOPY, WITH LASER LITHOTRIPSY [[id number] (CPT )] 09/03/2025 9:20 AM EDT [facility] Visit [facility] [address] [place] [address] Richi Awad MD [address] [place], [place] [phone] Scheduled Procedures Name Priority Associated Diagnoses Date/Ti [...] ed Goal Care Plan Autogenerated Problem No Ishmael Johnna Acuna documented as of this encounter Procedures Procedure Name Priority Date/Time Associated Diagnosis Comments CBC W/O DIFFERENTIAL Routine 07/04/2025 5:26 AM EDT COMPREHENSIVE METABOLIC PANEL, PLASMA Routine 07/04/2025 5:26 AM EDT FL LESS THAN 1 HOUR (NON-REPORTABLE) Routine 07/03/2025 6:15 PM EDT CALCULI (KIDNEY STONE)ANALYSIS (SO) STAT 07/03/2025 6:12 PM EDT Right ureteral stone FL OPEN BLADDER,REMV CALCULUS 07/03/2025 5:10 PM EDT Right ureteral stone Special Needs Cmax FL CYSTOSCOPY,INSERT URETERAL STENT 07/03/2025 5:10 PM EDT [...] CBC W/O Differential (07/04/2025 5:26 AM EDT) WBC Count 10.13 3.70 - 10.30 10*3/uL LAB HEMATOLOGY METHOD 07/04/2025 5:48 AM EDT [facility] RBC Count 3.46(L) 4.60 - 6.10 10*6/uL LAB HEMATOLOGY METHOD 07/04/2025 5:48 AM EDT [facility] HGB 11.3(L) 13.7 - 17.5 g/dL LAB HEMATOLOGY METHOD 07/04/2025 5:48 AM EDT [facility] HCT 33.0(L) 40.0 - 51.0 % LAB HEMATOLOGY METHOD 07/04/2025 5:48 AM EDT [facility] Platelet Count 114(L) 155 - 369 10*3/uL LAB HEMATOLOGY METHOD 07/04/2025 5:48 AM EDT [facility] MCV 95 79 - 98 fL LAB HEMATOLOGY METHOD 07/04/2025 5:48 AM EDT [facility] MCH 32.7(H) 26.0 - 32.0 pg LAB HEMATOLOGY METHOD 07/04/2025 5:48 AM EDT [facility] MCHC 34.2 30.7 - 35.5 g/dL LAB HEMATOLOGY METHOD 07/04/2025 5:48 AM EDT [facility] RDW 15.7(H) 11.5 - 14.5 % LAB HEMATOLOGY METHOD 07/04/2025 5:48 AM EDT [facility] MPV 11.0 8.8 - 12.5 fL LAB HEMATOLOGY METHOD 07/04/2025 5:48 AM EDT [facility] nRBC 0.0 <=0.0 per 100 WBCs LAB HEMATOLOGY METHOD 07/04/2025 5:48 AM EDT [facility] Blood Venous blood specimen / Unknown Venipuncture / Unknown 07/04/2025 5:26 AM EDT 07/04/2025 5:37 AM EDT us Quentin Anderson MD LAB BLOOD ORDERABLES Final Result [facility] [address] [place] [address] * (ABNORMAL) Comprehensive Metabolic Panel, Plasma (07/04/2025 5:26 AM EDT) Glucose, Plasma 147(H) 74 - 99 mg/dL 07/04/2025 6:07 AM EDT [facility] BUN, Plasma 41(H) 8 - 23 mg/dL 07/04/2025 6:07 AM EDT [facility] Creatinine, Plasma 1.83(H) 0.70 - 1.20 mg/dL 07/04/2025 6:07 AM EDT [facility] BUN/Creatinine Ratio 22 07/04/2025 6:07 AM EDT [facility] Sodium, Plasma 127(L) 136 - 145 mmol/L 07/04/2025 6:07 AM EDT [facility] Potassium, Plasma 4.3 3.6 - 4.9 mmol/L 07/04/2025 6:07 AM EDT [facility] Chloride, Plasma 98 97 - 107 mmol/L 07/04/2025 6:07 AM EDT [facility] CO2, Plasma 18(L) 22 - 29 mmol/L 07/04/2025 6:07 AM EDT [facility] Anion Gap 11 6 - 16 mmol/L 07/04/2025 6:07 AM EDT [facility] Total Calcium, Plasma 7.6(L) 8.9 - 10.2 mg/dL 07/04/2025 6:07 AM EDT [facility] Total Protein 4.8(L) 6.3 - 7.9 g/dL 07/04/2025 6:07 AM EDT [facility] Albumin, Plasma 2.3(L) 3.5 - 5.2 g/dL 07/04/2025 6:07 AM EDT [facility] AST, Plasma 41 10 - 50 U/L 07/04/2025 6:07 AM EDT [facility] ALT, Plasma 24 10 - 50 U/L 07/04/2025 6:07 AM EDT [facility] Alkaline Phosphatase, Plasma 133(H) 40 - 115 U/L 07/04/2025 6:07 AM EDT [facility] Total Bilirubin, Plasma 1.2(H) 0.2 - 1.1 mg/dL 07/04/2025 6:07 AM EDT [facility] eGFRcr 39.2 mL/min/1.7 3m*2 07/04/2025 6:07 AM EDT [facility] Comment:Reported eGFRcr in m L/min/1.73m2 is based the CKD-EPI 2020 equation that does not use a race coefficient. Blood Venous blood specimen / Unknown Venipuncture / Unknown 07/04/2025 5:26 AM EDT 07/04/2025 5:35 AM EDT us Quentin Anderson MD LAB BLOOD ORDERABLES Final Result [facility] [address] [place] [address] * [place] Less than 1 Hour Intraoperative [...] Mass 807 mg 07/08/2025 6:16 PM EDT [facility] ([facility]) Calculi Description See Note 07/08/2025 6:16 PM EDT [facility] ([facility]) Calculi Composition See Note 07/08/2025 6:[address] [facility] ([facility]) Calculus Urinary bladder structure / Unknown 07/03/2025 6:12 PM EDT 07/03/2025 6:35 PM EDT Comment:Pre-op diagnosis: Right ureteral stone [N20.1] Narrative [facility]) - 07/08/2025 6:16 PM EDT Specimen [...] composition determined by FTIR analysis. Performed By: [facility] [address] [place] [address] Funding Coordinator: Sotero Banuelos MD, PhD CLIA Number: [id number] Dyllan Paul MD LAB REF LAB BLOOD AND FLUID O RD Final Result [facility] ([place]) [address] [id number] * (ABNORMAL) Prothrombin Time/INR (07/03/2025 6:21 AM EDT) Prothrombin Time 21.7(H) 12.0 - 14.3 sec LAB COAGULATION METHOD 07/03/2025 6:47 AM EDT [facility] INR 1.9(H) 0.9 - 1.1 LAB COAGULATION METHOD 07/03/2025 6:47 AM EDT [facility] Blood Venous blood specimen / Unknown Venipuncture / Unknown 07/03/2025 6:21 AM EDT 07/03/2025 6:30 AM EDT Narrative [facility] - 07/03/2025 6:47 AM EDT OPTIMAL INR RANGES FOR PATIENT ON ORAL ANTICOAGULANT THERAPY Prevention of venous thromboembolism INR 2.0 to 3.0 In patients with heart disease: Atrial fibrillation INR 2.0 to 3.0 Valvular heart disease INR 2.0 to 3.0 Tissue heart valves INR 2.0 to 3.0 Mechanical prosthetic valves INR 2.5 to 3.5 Prevention of recurrent TN INR 2.5 to 3.5 us Quentin Anderson MD LAB BLOOD ORDERABLES Final Result [facility] [address] [place] [address] * (ABNORMAL) CBC W/O Differential (07/03/2025 6:21 AM EDT) WBC Count 10.55(H) 3.70 - 10.30 10*3/uL LAB HEMATOLOGY METHOD 07/03/2025 6:40 AM EDT [facility] RBC Count 3.41(L) 4.60 - 6.10 10*6/uL LAB HEMATOLOGY METHOD 07/03/2025 6:40 AM EDT [facility] HGB 11.3(L) 13.7 - 17.5 g/dL LAB HEMATOLOGY METHOD 07/03/2025 6:40 AM EDT [facility] HCT 32.2(L) 40.0 - 51.0 % LAB HEMATOLOGY METHOD 07/03/2025 6:40 AM EDT [facility] Platelet Count 110(L) 155 - 369 10*3/uL LAB HEMATOLOGY METHOD 07/03/2025 6:40 AM EDT [facility] MCV 94 79 - 98 fL LAB HEMATOLOGY METHOD 07/03/2025 6:40 AM EDT [facility] MCH 33.1(H) 26.0 - 32.0 pg LAB HEMATOLOGY METHOD 07/03/2025 6:40 AM EDT [facility] MCHC 35.1 30.7 - 35.5 g/dL LAB HEMATOLOGY METHOD 07/03/2025 6:40 AM EDT [facility] RDW 15.9(H) 11.5 - 14.5 % LAB HEMATOLOGY METHOD 07/03/2025 6:40 AM EDT [facility] MPV 11.0 8.8 - 12.5 fL LAB HEMATOLOGY METHOD 07/03/2025 6:40 AM EDT [facility] nRBC 0.0 <=0.0 per 100 WBCs LAB HEMATOLOGY METHOD 07/03/2025 6:40 AM EDT [facility] Blood Venous blood specimen / Unknown Venipuncture / Unknown 07/03/2025 6:21 AM EDT 07/03/2025 6:30 AM EDT us Quentin Anderson MD LAB BLOOD ORDERABLES Final Result [facility] [address] [place] [address] * (ABNORMAL) Comprehensive Metabolic Panel, Plasma (07/03/2025 6:21 AM EDT) Glucose, Plasma 90 74 - 99 mg/dL 07/03/2025 7:00 AM EDT [facility] BUN, Plasma 36(H) 8 - 23 mg/dL 07/03/2025 7:00 AM EDT [facility] Creatinine, Plasma 1.54(H) 0.70 - 1.20 mg/dL 07/03/2025 7:00 AM EDT [facility] BUN/Creatinine Ratio 23 07/03/2025 7:00 AM EDT [facility] Sodium, Plasma 128(L) 136 - 145 mmol/L 07/03/2025 7:00 AM EDT [facility] Potassium, Plasma 3.8 3.6 - 4.9 mmol/L 07/03/2025 7:00 AM EDT [facility] Chloride, Plasma 98 97 - 107 mmol/L 07/03/2025 7:00 AM EDT [facility] CO2, Plasma 19(L) 22 - 29 mmol/L 07/03/2025 7:00 AM EDT [facility] Anion Gap 11 6 - 16 mmol/L 07/03/2025 7:00 AM EDT [facility] Total Calcium, Plasma 7.5(L) 8.9 - 10.2 mg/dL 07/03/2025 7:00 AM EDT [facility] Total Protein 4.8(L) 6.3 - 7.9 g/dL 07/03/2025 7:00 AM EDT [facility] Albumin, Plasma 2.2(L) 3.5 - 5.2 g/dL 07/03/2025 7:00 AM EDT [facility] AST, Plasma 42 10 - 50 U/L 07/03/2025 7:00 AM EDT [facility] Comment:Hemolyzed, result ma y be falsely increased. ALT, Plasma 24 10 - 50 U/L 07/03/2025 7:00 AM EDT [facility] Alkaline Phosphatase, Plasma 128(H) 40 - 115 U/L 07/03/2025 7:00 AM EDT [facility] Total Bilirubin, Plasma 1.4(H) 0.2 - 1.1 mg/dL 07/03/2025 7:00 AM EDT [facility] eGFRcr 48.2 mL/min/1.7 3m*2 07/03/2025 7:00 AM EDT [facility] Comment:Reported eGFRcr in m L/min/1.73m2 is based the CKD-EPI 2020 equation that does not use a race coefficient. Blood Venous blood specimen / Unknown Venipuncture / Unknown 07/03/2025 6:21 AM EDT 07/03/2025 6:30 AM EDT us Quentin Anderson MD LAB BLOOD ORDERABLES Final Result [facility] [address] [place] [address] * (ABNORMAL) Comprehensive Metabolic Panel, Plasma (07/02/2025 5:01 AM EDT) Glucose, Plasma 93 74 - 99 mg/dL 07/02/2025 6:19 AM EDT [facility] BUN, Plasma 31(H) 8 - 23 mg/dL 07/02/2025 6:19 AM EDT [facility] Creatinine, Plasma 1.34(H) 0.70 - 1.20 mg/dL 07/02/2025 6:19 AM EDT [facility] BUN/Creatinine Ratio 23 07/02/2025 6:19 AM EDT [facility] Sodium, Plasma 129(L) 136 - 145 mmol/L 07/02/2025 6:19 AM EDT [facility] Potassium, Plasma 3.7 3.6 - 4.9 mmol/L 07/02/2025 6:19 AM EDT [facility] Chloride, Plasma 102 97 - 107 mmol/L 07/02/2025 6:19 AM EDT [facility] CO2, Plasma 20(L) 22 - 29 mmol/L 07/02/2025 6:19 AM EDT [facility] Anion Gap 7 6 - 16 mmol/L 07/02/2025 6:19 AM EDT [facility] Total Calcium, Plasma 7.1(L) 8.9 - 10.2 mg/dL 07/02/2025 6:19 AM EDT [facility] Total Protein 4.7(L) 6.3 - 7.9 g/dL 07/02/2025 6:19 AM EDT [facility] Albumin, Plasma 2.2(L) 3.5 - 5.2 g/dL 07/02/2025 6:19 AM EDT [facility] AST, Plasma 37 10 - 50 U/L 07/02/2025 6:19 AM EDT [facility] ALT, Plasma 26 10 - 50 U/L 07/02/2025 6:19 AM EDT [facility] Alkaline Phosphatase, Plasma 114 40 - 115 U/L 07/02/2025 6:19 AM EDT [facility] Total Bilirubin, Plasma 1.7(H) 0.2 - 1.1 mg/dL 07/02/2025 6:19 AM EDT [facility] eGFRcr 57.0 mL/min/1.7 3m*2 07/02/2025 6:19 AM EDT [facility] Comment:Reported eGFRcr in m L/min/1.73m2 is based the CKD-EPI 2020 equation that does not use a race coefficient. Blood Venous blood specimen / Unknown Venipuncture / Unknown 07/02/2025 5:01 AM EDT 07/02/2025 5:12 AM EDT us Quentin Anderson MD LAB BLOOD ORDERABLES Final Result [facility] [address] [place] [address] * (ABNORMAL) CBC and Differential (07/01/2025 4:59 AM EDT) WBC Count 14.93(H) 3.70 - 10.30 10*3/uL LAB HEMATOLOGY METHOD 07/01/2025 5:17 AM EDT [facility] RBC Count 3.42(L) 4.60 - 6.10 10*6/uL LAB HEMATOLOGY METHOD 07/01/2025 5:17 AM EDT [facility] HGB 11.1(L) 13.7 - 17.5 g/dL LAB HEMATOLOGY METHOD 07/01/2025 5:17 AM EDT [facility] HCT 32.6(L) 40.0 - 51.0 % LAB HEMATOLOGY METHOD 07/01/2025 5:17 AM EDT [facility] Platelet Count 112(L) 155 - 369 10*3/uL LAB HEMATOLOGY METHOD 07/01/2025 5:17 AM EDT [facility] MCV 95 79 - 98 fL LAB HEMATOLOGY METHOD 07/01/2025 5:17 AM EDT [facility] MCH 32.5(H) 26.0 - 32.0 pg LAB HEMATOLOGY METHOD 07/01/2025 5:17 AM EDT [facility] MCHC 34.0 30.7 - 35.5 g/dL LAB HEMATOLOGY METHOD 07/01/2025 5:17 AM EDT [facility] RDW 15.8(H) 11.5 - 14.5 % LAB HEMATOLOGY METHOD 07/01/2025 5:17 AM EDT [facility] MPV 11.2 8.8 - 12.5 fL LAB HEMATOLOGY METHOD 07/01/2025 5:17 AM EDT [facility] nRBC 0.1(H) <=0.0 per 100 WBCs LAB HEMATOLOGY METHOD 07/01/2025 5:17 AM EDT [facility] Differential Type Automated LAB HEMATOLOGY METHOD 07/01/2025 5:17 AM EDT [facility] Neutrophils % 54 % LAB HEMATOLOGY METHOD 07/01/2025 5:17 AM EDT [facility] Lymphocytes % 30 % LAB HEMATOLOGY METHOD 07/01/2025 5:17 AM EDT [facility] Monocytes % 9 % LAB HEMATOLOGY METHOD 07/01/2025 5:17 AM EDT [facility] Eosinophils % 5 % LAB HEMATOLOGY METHOD 07/01/2025 5:17 AM EDT [facility] Basophils % 1 % LAB HEMATOLOGY METHOD 07/01/2025 5:17 AM EDT [facility] Immature Granulocytes % 1 % LAB HEMATOLOGY METHOD 07/01/2025 5:17 AM EDT [facility] Neutrophils Absolute 8.14(H) 1.60 - 6.10 10*3/uL LAB HEMATOLOGY METHOD 07/01/2025 5:17 AM EDT [facility] Lymphocytes Absolute 4.47(H) 1.20 - 3.90 10*3/uL LAB HEMATOLOGY METHOD 07/01/2025 5:17 AM EDT [facility] Monocytes Absolute 1.40(H) 0.30 - 0.90 10*3/uL LAB HEMATOLOGY METHOD 07/01/2025 5:17 AM EDT [facility] Eosinophils Absolute 0.74(H) 0.00 - 0.50 10*3/uL LAB HEMATOLOGY METHOD 07/01/2025 5:17 AM EDT [facility] Basophils Absolute 0.08 0.00 - 0.10 10*3/uL LAB HEMATOLOGY METHOD 07/01/2025 5:17 AM EDT [facility] Immature Granulocytes Absolute 0.10(H) 0.00 - 0.06 10*3/uL LAB HEMATOLOGY METHOD 07/01/2025 5:17 AM EDT [facility] Blood Venous blood specimen / Unknown Venipuncture / Unknown 07/01/2025 4:59 AM EDT 07/01/2025 5:06 AM [facility]T [facility]/01/[facility] 5:17 AM EDT Therapeutic decision making should be based on absolute values, rather than percentages. Lizzie Biggs MD LAB BLOOD ORDERABLES Fi nal Result [facility] [address] [place] [address] * (ABNORMAL) Comprehensive Metabolic Panel, Plasma (07/01/2025 4:59 AM EDT) Glucose, Plasma 106(H) 74 - 99 mg/dL 07/01/2025 5:35 AM EDT [facility] BUN, Plasma 28(H) 8 - 23 mg/dL 07/01/2025 5:35 AM EDT [facility] Creatinine, Plasma 1.31(H) 0.70 - 1.20 mg/dL 07/01/2025 5:35 AM EDT [facility] BUN/Creatinine Ratio 21 07/01/2025 5:35 AM EDT [facility] Sodium, Plasma 128(L) 136 - 145 mmol/L 07/01/2025 5:35 AM EDT [facility] Potassium, Plasma 4.2 3.6 - 4.9 mmol/L 07/01/2025 5:35 AM EDT [facility] Chloride, Plasma 98 97 - 107 mmol/L 07/01/2025 5:35 AM EDT [facility] CO2, Plasma 20(L) 22 - 29 mmol/L 07/01/2025 5:35 AM EDT [facility] Anion Gap 10 6 - 16 mmol/L 07/01/2025 5:35 AM EDT [facility] Total Calcium, Plasma 7.5(L) 8.9 - 10.2 mg/dL 07/01/2025 5:35 AM EDT [facility] Total Protein 4.8(L) 6.3 - 7.9 g/dL 07/01/2025 5:35 AM EDT [facility] Albumin, Plasma 2.3(L) 3.5 - 5.2 g/dL 07/01/2025 5:35 AM EDT [facility] AST, Plasma 38 10 - 50 U/L 07/01/2025 5:35 AM EDT [facility] Comment:Hemolyzed, result ma y be falsely increased. ALT, Plasma 31 10 - 50 U/L 07/01/2025 5:35 AM EDT [facility] Alkaline Phosphatase, Plasma 124(H) 40 - 115 U/L 07/01/2025 5:35 AM EDT [facility] Total Bilirubin, Plasma 2.1(H) 0.2 - 1.1 mg/dL 07/01/2025 5:35 AM EDT [facility] eGFRcr 58.6 mL/min/1.7 3m*2 07/01/2025 5:35 AM EDT [facility] Comment:Reported eGFRcr in m L/min/1.73m2 is based the CKD-EPI 2020 equation that does not use a race coefficient. Blood Venous blood specimen / Unknown Venipuncture / Unknown 07/01/2025 4:59 AM EDT 07/01/2025 5:06 AM EDT Lizzie Biggs MD LAB BLOOD ORDERABLES Fi nal Result Performing Organization Address City/[facility]/ZIP Co de Phone Number [facility] [address] [place] [address] * (ABNORMAL) Magnesium, Plasma (07/01/2025 4:59 AM EDT) Magnesium, Plasma 2.7(H) 1.9 - 2.4 mg/dL 07/01/2025 5:35 AM EDT [facility] Blood Venous blood specimen / Unknown Venipuncture / Unknown 07/01/2025 4:59 AM EDT 07/01/2025 5:06 AM EDT Lizzie Biggs MD LAB BLOOD ORDERABLES Fi nal Result [facility] [address] [place] [address] * Phosphorus, Plasma (07/01/2025 4:59 AM EDT) Phosphorus, Plasma 3.0 2.5 - 4.5 mg/dL 07/01/2025 5:35 AM EDT [facility] Blood Venous blood specimen / Unknown Venipuncture / Unknown 07/01/2025 4:59 AM EDT 07/01/2025 5:06 AM EDT us Lizzie Biggs MD LAB BLOOD ORDERABLES Fi nal Result Performing Organization Address [facility]/ZIP Co de Phone Number [facility] [address] [place] [id number] * Urinalysis Microscopic Examination (06/30/2025 6:20 PM EDT) Urine Urine specimen obtained by clean catch procedure / Unknown Non-blood Collection / Unknown 06/30/2025 6:20 PM EDT 06/30/2025 6:52 PM EDT Lizzie Biggs MD LAB URINE ORDERABLES Fi nal Result Performing Organization Address [facility] Phone Number [facility] [address] [place] [address] * (ABNORMAL) Urinalysis with reflex microscopic (Culture NOT Included) (06/30/2025 6:20 PM EDT) Color, Urine Dark Yellow LAB URINALYSIS - AUTOMATED METHOD 06/30/2025 7:28 PM EDT [facility] Clarity, Urine Cloudy LAB URINALYSIS - AUTOMATED METHOD 06/30/2025 7:28 PM EDT [facility] Spec [place], Urine >1.030(H) 1.005 - 1.030 LAB URINALYSIS - AUTOMATED METHOD 06/30/2025 7:28 PM EDT [facility] pH, Urine 6.0 5.0 - 8.0 LAB URINALYSIS - AUTOMATED METHOD 06/30/2025 7:28 PM EDT [facility] Protein, Urine 30(A) Negative mg/dL LAB URINALYSIS - AUTOMATED METHOD 06/30/2025 7:28 PM EDT [facility] Glucose, Urine Negative Negative mg/dL LAB URINALYSIS - AUTOMATED METHOD 06/30/2025 7:28 PM EDT [facility] Ketones, Urine Trace(A) Negative mg/dL LAB URINALYSIS - AUTOMATED METHOD 06/30/2025 7:28 PM EDT [facility] Blood, Urine Moderate(A) Negative LAB URINALYSIS - AUTOMATED METHOD 06/30/2025 7:28 PM EDT [facility] Bilirubin, Urine Small(A) Negative LAB URINALYSIS - AUTOMATED METHOD 06/30/2025 7:28 PM EDT [facility] Urobilinogen, Urine 1.0 0.2 to 1.0 mg/dL LAB URINALYSIS - AUTOMATED METHOD 06/30/2025 7:28 PM EDT [facility] Leukocytes, Urine Moderate(A) Negative LAB URINALYSIS - AUTOMATED METHOD 06/30/2025 7:28 PM EDT [facility] Nitrite, Urine Negative Negative LAB URINALYSIS - AUTOMATED METHOD 06/30/2025 7:28 PM EDT [facility] RBC, Urine >50(A) 0 to 3 /HPF LAB URINALYSIS - AUTOMATED METHOD 06/30/2025 7:28 PM EDT [facility] WBC, Urine 21 - 50(A) 0 to 5 /HPF LAB URINALYSIS - AUTOMATED METHOD 06/30/2025 7:28 PM EDT [facility] Squamous Epithelial Cells 0 - 2 0 to 5 /HPF LAB URINALYSIS - AUTOMATED METHOD 06/30/2025 7:28 PM EDT [facility] Hyaline Casts 6 - 10(A) 0 to 5 /LPF LAB URINALYSIS - AUTOMATED METHOD 06/30/2025 7:28 PM EDT [facility] Bacteria, Urine Present Negative LAB URINALYSIS - AUTOMATED METHOD 06/30/2025 7:28 PM EDT [facility] Renal Tubular Cells Present Absent 06/30/2025 7:28 PM EDT [facility] Yeast (Budding and/or Pseudohyphae) Present(A) Absent 06/30/2025 7:28 PM EDT [facility] Urine Urine specimen obtained by clean catch procedure / Unknown Non-blood Collection / Unknown 06/30/2025 6:20 PM EDT 06/30/2025 6:52 PM EDT Narrative [facility] - 06/30/2025 7:28 PM EDT Performed by manual method Lizzie Biggs MD LAB URINE ORDERABLES Fi nal Result Performing Organization Address City/[facility] Co de Phone Number [facility] [address] [place] [address] * Lactate, venous (06/30/2025 3:11 PM EDT) Lactate, Venous, Whole Blood 1.4 0.5 - 2.2 mmol/L LAB HEMATOLOGY METHOD 06/30/2025 3:25 PM EDT [facility] Blood Venous blood specimen / Unknown Venipuncture / Unknown 06/30/2025 3:11 PM EDT 06/30/2025 3:23 PM EDT Lizzie Biggs MD LAB BLOOD ORDERABLES Fi nal Result Performing Organization Address [facility] Co de Phone Number [facility] [address] [place] [address] * Phosphorus, Plasma (06/30/2025 3:11 PM EDT) Phosphorus, Plasma 3.0 2.5 - 4.5 mg/dL 06/30/2025 4:40 PM EDT [facility] Blood Venous blood specimen / Unknown Venipuncture / Unknown 06/30/2025 3:11 PM EDT 06/30/2025 3:34 PM EDT Lizzie Biggs MD LAB BLOOD ORDERABLES Fi nal Result Performing Organization Address City/[facility] Co de Phone Number [facility] [address] [place] [address] * (ABNORMAL) CBC and Differential (06/30/2025 3:11 PM EDT) WBC Count 15.42(H) 3.70 - 10.30 10*3/uL LAB HEMATOLOGY METHOD 06/30/2025 7:40 PM EDT [facility] RBC Count 2.92(L) 4.60 - 6.10 10*6/uL LAB HEMATOLOGY METHOD 06/30/2025 7:40 PM EDT [facility] HGB 9.6(L) 13.7 - 17.5 g/dL LAB HEMATOLOGY METHOD 06/30/2025 7:40 PM EDT [facility] HCT 28.0(L) 40.0 - 51.0 % LAB HEMATOLOGY METHOD 06/30/2025 7:40 PM EDT [facility] Platelet Count 100(L) 155 - 369 10*3/uL LAB HEMATOLOGY METHOD 06/30/2025 7:40 PM EDT [facility] MCV 96 79 - 98 fL LAB HEMATOLOGY METHOD 06/30/2025 7:40 PM EDT [facility] MCH 32.9(H) 26.0 - 32.0 pg LAB HEMATOLOGY METHOD 06/30/2025 7:40 PM EDT [facility] MCHC 34.3 30.7 - 35.5 g/dL LAB HEMATOLOGY METHOD 06/30/2025 7:40 PM EDT [facility] RDW 15.9(H) 11.5 - 14.5 % LAB HEMATOLOGY METHOD 06/30/2025 7:40 PM EDT [facility] MPV 12.0 8.8 - 12.5 fL LAB HEMATOLOGY METHOD 06/30/2025 7:40 PM EDT [facility] nRBC 0.5(H) <=0.0 per 100 WBCs LAB HEMATOLOGY METHOD 06/30/2025 7:40 PM EDT [facility] Differential Type Automated LAB HEMATOLOGY METHOD 06/30/2025 7:40 PM EDT [facility] Neutrophils % 51 % LAB HEMATOLOGY METHOD 06/30/2025 7:40 PM EDT [facility] Lymphocytes % 34 % LAB HEMATOLOGY METHOD 06/30/2025 7:40 PM EDT [facility] Monocytes % 9 % LAB HEMATOLOGY METHOD 06/30/2025 7:40 PM EDT [facility] Eosinophils % 4 % LAB HEMATOLOGY METHOD 06/30/2025 7:40 PM EDT [facility] Basophils % 1 % LAB HEMATOLOGY METHOD 06/30/2025 7:40 PM EDT [facility] Immature Granulocytes % 1 % LAB HEMATOLOGY METHOD 06/30/2025 7:40 PM EDT [facility] Neutrophils Absolute 8.05(H) 1.60 - 6.10 10*3/uL LAB HEMATOLOGY METHOD 06/30/2025 7:40 PM EDT [facility] Lymphocytes Absolute 5.22(H) 1.20 - 3.90 10*3/uL LAB HEMATOLOGY METHOD 06/30/2025 7:40 PM EDT [facility] Monocytes Absolute 1.32(H) 0.30 - 0.90 10*3/uL LAB HEMATOLOGY METHOD 06/30/2025 7:40 PM EDT [facility] Eosinophils Absolute 0.68(H) 0.00 - 0.50 10*3/uL LAB HEMATOLOGY METHOD 06/30/2025 7:40 PM EDT [facility] Basophils Absolute 0.07 0.00 - 0.10 10*3/uL LAB HEMATOLOGY METHOD 06/30/2025 7:40 PM EDT [facility] Immature Granulocytes Absolute 0.08(H) 0.00 - 0.06 10*3/uL LAB HEMATOLOGY METHOD 06/30/2025 7:40 PM EDT [facility] Blood Venous blood specimen / Unknown Venipuncture / Unknown 06/30/2025 3:11 PM EDT 06/30/2025 3:37 PM EDT Narrative [facility] - 06/30/2025 7:40 PM EDT Therapeutic decision making should be based on absolute values, rather than percentages. Lizzie Biggs MD LAB BLOOD ORDERABLES Fi nal Result [facility] [address] [place] [address] * (ABNORMAL) Basic Metabolic Panel, Plasma (06/30/2025 3:11 PM EDT) Glucose, Plasma 101(H) 74 - 99 mg/dL 06/30/2025 4:40 PM EDT [facility] BUN, Plasma 25(H) 8 - 23 mg/dL 06/30/2025 4:40 PM EDT [facility] Creatinine, Plasma 1.08 0.70 - 1.20 mg/dL 06/30/2025 4:40 PM EDT [facility] BUN/Creatinine Ratio 23 06/30/2025 4:40 PM EDT [facility] Sodium, Plasma 130(L) 136 - 145 mmol/L 06/30/2025 4:40 PM EDT [facility] Potassium, Plasma 3.2(L) 3.6 - 4.9 mmol/L 06/30/2025 4:40 PM EDT [facility] Chloride, Plasma 111(H) 97 - 107 mmol/L 06/30/2025 4:40 PM EDT [facility] CO2, Plasma 18(L) 22 - 29 mmol/L 06/30/2025 4:40 PM EDT [facility] Anion Gap 1(L) 6 - 16 mmol/L 06/30/2025 4:40 PM EDT [facility] Total Calcium, Plasma 6.3(L) 8.9 - 10.2 mg/dL 06/30/2025 4:40 PM EDT [facility] eGFRcr 73.8 mL/min/1.7 3m*2 06/30/2025 4:40 PM EDT [facility] Comment:Reported eGFRcr in m L/min/1.73m2 is based the CKD-EPI 2020 equation that does not use a race coefficient. Blood Venous blood specimen / Unknown Venipuncture / Unknown 06/30/2025 3:11 PM EDT 06/30/2025 3:34 PM EDT Lizzie Biggs MD LAB BLOOD ORDERABLES Fi nal Result [facility] [address] [place] [address] * (ABNORMAL) Magnesium, Plasma (06/30/2025 3:11 PM EDT) Magnesium, Plasma 1.7(L) 1.9 - 2.4 mg/dL 06/30/2025 4:40 PM EDT [facility] Blood Venous blood specimen / Unknown Venipuncture / Unknown 06/30/2025 3:11 PM EDT 06/30/2025 3:34 PM EDT Lizzie Biggs MD LAB BLOOD ORDERABLES Fi nal Result Performing Organization Address [facility]/ZIP Co de Phone Number [facility] [address] [place] [address] * Vancomycin, random (06/30/2025 12:48 PM EDT) Vancomycin, Random, Plasma 13.3 ug/mL 06/30/2025 3:07 PM EDT [facility] Blood Venous blood specimen / Unknown Venipuncture / Unknown 06/30/2025 12:48 PM EDT 06/30/2025 12:58 PM EDT Jennifer Mcgrath MD LAB BLOOD ORDERABLES Final Resu lt Performing Organization Address [facility] Co de Phone Number [facility] [address] [place] [address] * (ABNORMAL) Cystatin C (06/30/2025 6:01 AM EDT) Cystatin C 1.58(H) 0.61 - 0.95 mg/L 06/30/2025 6:40 AM EDT [facility] Blood Venous blood specimen / Unknown Venipuncture / Unknown 06/30/2025 6:01 AM EDT 06/30/2025 6:10 AM EDT Lizzie Biggs MD LAB BLOOD ORDERABLES Fi nal Result Performing Organization Address [facility] Co de Phone Number [facility] [address] [place] [address] * (ABNORMAL) Ammonia, Plasma (06/30/2025 6:01 AM EDT) Ammonia 64(H) 11 - 51 umol/L 06/30/2025 6:38 AM EDT [facility] Comment:Improper specimen marquez ndling may falsely increase results. Blood Venous blood specimen / Unknown Venipuncture / Unknown 06/30/2025 6:01 AM EDT 06/30/2025 6:08 AM EDT us Homero N Lioumendelbeya KEEPER HELPER, DNP LAB BLOOD ORDERAB LES Final Result Performing Organization Address [facility] [place] [address] * Sedimentation Rate, Automated (06/30/2025 6:01 AM EDT) Sedimentation Rate 17 <20 mm/hr 2024 6:18 AM EDT [facility] Blood Venous blood specimen / Unknown Venipuncture / Unknown 06/30/2025 6:01 AM EDT 06/30/2025 6:11 AM EDT us Homero N Madumendelbeya KEEPER HELPER, DNP LAB BLOOD ORDERAB LES Final Result Performing Organization Address [facility] [place] [address] * Vancomycin, random (06/29/2025 6:05 PM EDT) Pathologist [facility] Vancomycin, Random, Plasma 15.4 ug/mL 06/29/2025 6:42 PM EDT [facility] Blood Venous blood specimen / Unknown Venipuncture / Unknown 06/29/2025 6:05 PM EDT 06/29/2025 6:15 PM EDT us Lizzie Biggs MD LAB BLOOD ORDERABLES Fi nal Result Performing Organization Address [facility] [place] [address] * US Abdomen Focused Region Liver, Pancreas, [...] Urine 182 mg/dL 06/29/2025 1:10 PM EDT [facility] Urine Urine specimen obtained by clean catch procedure / Unknown Non-blood Collection / Unknown 06/29/2025 12:10 PM EDT 06/29/2025 12:37 PM EDT us Homero Gutierrez APRN, DNP LAB URINE ORDERAB LES Final Result [facility] [address] [place] [address] * Urea nitrogen, urine (06/29/2025 12:10 PM EDT) Urea Nitrogen, Urine 865 mg/dL 06/29/2025 1:10 PM EDT [facility] Urine Urine specimen obtained by clean catch procedure / Unknown Non-blood Collection / Unknown 06/29/2025 12:10 PM EDT 06/29/2025 12:37 PM EDT Homero Gutierrez APRN, DNP LAB URINE ORDERAB LES Final Result Performing Organization Address [facility] de Phone Number [facility] [address] [place] [address] * Methicillin Resistant Staphylococcus aureus (MRSA) by PCR (06/29/2025 9:39 AM EDT) Methicillin Resistant Staphylococcus aureus (MRSA) by PCR Not Detected Not Detected 06/29/2025 12:04 PM EDT [facility] Swab Both anterior nares / Unknown Non-blood Collection / Unknown 06/29/2025 9:39 AM EDT 06/29/2025 10:18 AM EDT Narrative [facility] - 06/29/2025 12:04 PM EDT [...] GENERAL ORDERABLES Final Result Performing Organization Address [facility] Phone Number [facility] [address] [place] [address] * (ABNORMAL) Wound Culture and Gram Stain (06/29/2025 9:39 AM EDT) CULTURE READING WOUND Light Growth 07/02/2025 12:29 PM EDT [facility] CULTURE READING WOUND Staphylococcus epidermidis(A) 07/02/2025 12:29 PM EDT [facility] Comment: This isolate has been identified using the FDA Approved regrob.comyper [place] System The organism value for this result has been updated. These results have been appended to the previously preliminary verified report. Edited result: Previously reported as Gram positive cocci on 07/01/2025 at 0744 EDT. Gram Stain Result Numerous Polymorphonuclear leukocytes(A) 07/02/2025 12:29 PM EDT [facility] Gram Stain Result Rare Gram negative rods(A) 07/02/2025 12:29 PM EDT [facility] Swab Skin structure / Unknown Non-blood Collection / Unknown 06/29/2025 9:39 AM EDT 06/29/2025 2:57 PM EDT Homerocrow Gutierrez APRN, LUDMILA LAB MICROBIOLOGY - GENERAL ORDERABLES Final Result Performing Organization Address [facility] Co de Phone Number [facility] [address] [place] [address] * Multi Drug Resistance Test (06/29/2025 9:39 AM EDT) Culture No growth at day 1 06/30/2025 4:16 PM EDT [facility] Swab (Nares and Cari Rectal) Non-blood Collection / Unknown 06/29/2025 9:39 AM EDT 06/29/2025 10:19 AM EDT Narrative [facility] - 06/30/2025 4:16 PM EDT This test was developed and its performance characteristics determined by the [facility]. Although the media is FDA-approved, it is not FDA-approved for all specimen types submitted. The FDA has determined that such clearance or approval is not necessary. This test is used for surveillance purposes. It should not be regarded as investigational or for research. The [facility] is certified under the Clinical Laboratory Improvement Amendments of 1988 (CLIA-88) as qualified to perform high complexity clinical laboratory testing. us Homero Gutierrez APRN, DNP LAB MICROBIOLOGY - GENERAL ORDERABLES Final Result Performing Organization Address [facility] Co de Phone Number [facility] [address] [place] [address] * (ABNORMAL) GGT (06/29/2025 6:52 AM EDT) GGT, Plasma 116(H) 8 - 61 U/L 06/29/2025 8:35 AM EDT [facility] Blood Venous blood specimen / Unknown Venipuncture / Unknown 06/29/2025 6:52 AM EDT 06/29/2025 6:56 AM EDT us Homeroheather Gutierrez APRN, DNP LAB BLOOD ORDERAB LES Final Result Performing Organization Address City/[facility] [place] [address] * (ABNORMAL) Ionized calcium, whole blood (06/29/2025 6:52 AM EDT) Ionized Calcium, Whole Blood 4.1(L) 4.6 - 5.1 mg/dL LAB HEMATOLOGY METHOD 06/29/2025 7:12 AM EDT [facility] Blood Venous blood specimen / Unknown Venipuncture / Unknown 06/29/2025 6:52 AM EDT 06/29/2025 6:55 AM EDT us Homeroheather Gutierrez APRN, DNP LAB BLOOD ORDERAB LES Final Result Performing Organization Address City/[facility] [place] [address] * (ABNORMAL) Procalcitonin (06/29/2025 6:52 AM EDT) Procalcitonin, Plasma 2.47(H) <0.09 ng/mL 06/29/2025 7:27 AM EDT [facility] Blood Venous blood specimen / Unknown Venipuncture / Unknown 06/29/2025 6:52 AM EDT 06/29/2025 6:56 AM EDT Narrative [facility] - 06/29/2025 7:27 AM EDT [...] predict 28 day mortality risk. Please consult [email or web address]-fyv-vayxeefkzu.[email or web address] for more information. Test performed at [facility]. us Homero Gutierrez APRN, LUDMILA LAB BLOOD ORDERAB LES Final Result Performing Organization Address [facility] Co de Phone Number [facility] [address] [place] [address] * (ABNORMAL) Cystatin C (06/29/2025 6:52 AM EDT) Pathologist [facility] Cystatin C 1.5(H) 0.61 - 0.95 mg/L 06/29/2025 8:35 AM EDT [facility] Blood Venous blood specimen / Unknown Venipuncture / Unknown 06/29/2025 6:52 AM EDT 06/29/2025 6:56 AM EDT us Homero Gutierrez APRN, LUDMILA LAB BLOOD ORDERAB LES Final Result Performing Organization Address [facility] Co de Phone Number [facility] [address] [place] [address] * (ABNORMAL) Basic metabolic panel (06/29/2025 6:52 AM EDT) Glucose, Plasma 116(H) 74 - 99 mg/dL 06/29/2025 7:27 AM EDT [facility] BUN, Plasma 24(H) 8 - 23 mg/dL 06/29/2025 7:27 AM EDT [facility] Creatinine, Plasma 1.39(H) 0.70 - 1.20 mg/dL 06/29/2025 7:27 AM EDT [facility] BUN/Creatinine Ratio 17 06/29/2025 7:27 AM EDT [facility] Sodium, Plasma 131(L) 136 - 145 mmol/L 06/29/2025 7:27 AM EDT [facility] Potassium, Plasma 3.8 3.6 - 4.9 mmol/L 06/29/2025 7:27 AM EDT [facility] Chloride, Plasma 99 97 - 107 mmol/L 06/29/2025 7:27 AM EDT [facility] CO2, Plasma 22 22 - 29 mmol/L 06/29/2025 7:27 AM EDT [facility] Anion Gap 10 6 - 16 mmol/L 06/29/2025 7:27 AM EDT [facility] Total Calcium, Plasma 7.6(L) 8.9 - 10.2 mg/dL 06/29/2025 7:27 AM EDT [facility] eGFRcr 54.5 mL/min/1.7 3m*2 06/29/2025 7:27 AM EDT [facility] Comment:Reported eGFRcr in m L/min/1.73m2 is based the CKD-EPI 2020 equation that does not use a race coefficient. Blood Venous blood specimen / Unknown Venipuncture / Unknown 06/29/2025 6:52 AM EDT 06/29/2025 6:56 AM EDT us Homero Gutierrez APRN, DNP LAB BLOOD ORDERAB LES Final Result [facility] [address] [place] [address] * Lactate, venous (06/29/2025 6:52 AM EDT) Lactate, Venous, Whole Blood 1.5 0.5 - 2.2 mmol/L LAB HEMATOLOGY METHOD 06/29/2025 6:56 AM EDT [facility] Blood Venous blood specimen / Unknown Venipuncture / Unknown 06/29/2025 6:52 AM EDT 06/29/2025 6:55 AM EDT us Homerocrow Gutierrez APRN, DNP LAB BLOOD ORDERAB LES Final Result [facility] [address] [place] [address] * SEND SELIN MESSAGE (06/29/2025 2:00 AM EDT) Urine Urine specimen obtained by clean catch procedure / Unknown Non-blood Collection / Unknown 06/29/2025 2:00 AM EDT 06/29/2025 2:22 AM EDT Rg Coleman MD LAB URINE ORDERABLES Final Res ult Performing Organization Address [facility] de Phone Number [facility] [address] [place] [address] * (ABNORMAL) Urine Culture (06/29/2025 2:00 AM EDT) Culture 10,000 - 100,000 CFU/mL Diutina rugosa (formerly Celestina rugosa)(A) 07/02/2025 8:16 AM EDT [facility] Comment:This result was dete rmined by [employer] tof mass spectrometry using the [employer] database and is for research use only. Urine Urine specimen obtained by clean catch procedure / Unknown Non-blood Collection / Unknown 06/29/2025 2:00 AM EDT 06/29/2025 2:22 AM EDT Rg Coleman MD LAB MICROBIOLOGY - GENERAL ORD ERABLES Final Result Performing Organization Address [facility] [place] [address] * Urinalysis Microscopic Examination (06/29/2025 2:00 AM EDT) Urine Urine specimen obtained by clean catch procedure / Unknown Non-blood Collection / Unknown 06/29/2025 2:00 AM EDT 06/29/2025 2:04 AM EDT Rg Coleman MD LAB URINE ORDERABLES Final Res ult Performing Organization Address [facility] Co de Phone Number [facility] [address] [place] [address] * Urine Salcedo Panel (06/29/2025 2:00 AM EDT) Extra Sent for Culture 06/29/2025 4:01 AM EDT [facility] Urine Urine specimen obtained by clean catch procedure / Unknown Non-blood Collection / Unknown 06/29/2025 2:00 AM EDT 06/29/2025 2:22 AM EDT us Rg Coleman MD LAB URINE ORDERABLES Final Res ult [facility] [address] [place] [address] * (ABNORMAL) Urinalysis with reflex microscopic (Culture NOT Included) (06/29/2025 2:00 AM EDT) Pathologist [facility] Color, Urine [place] LAB URINALYSIS - AUTOMATED METHOD 06/29/2025 3:11 AM EDT [facility] Clarity, Urine Cloudy LAB URINALYSIS - AUTOMATED METHOD 06/29/2025 3:11 AM EDT [facility] Spec [place], Urine 1.030 1.005 - 1.030 LAB URINALYSIS - AUTOMATED METHOD 06/29/2025 3:11 AM EDT [facility] pH, Urine 5.5 5.0 - 8.0 LAB URINALYSIS - AUTOMATED METHOD 06/29/2025 3:11 AM EDT [facility] Protein, Urine Trace(A) Negative mg/dL LAB URINALYSIS - AUTOMATED METHOD 06/29/2025 3:11 AM EDT [facility] Glucose, Urine Negative Negative mg/dL LAB URINALYSIS - AUTOMATED METHOD 06/29/2025 3:11 AM EDT [facility] Ketones, Urine Trace(A) Negative mg/dL LAB URINALYSIS - AUTOMATED METHOD 06/29/2025 3:11 AM EDT [facility] Blood, Urine Large(A) Negative LAB URINALYSIS - AUTOMATED METHOD 06/29/2025 3:11 AM EDT [facility] Bilirubin, Urine Small(A) Negative LAB URINALYSIS - AUTOMATED METHOD 06/29/2025 3:11 AM EDT [facility] Urobilinogen, Urine 1.0 0.2 to 1.0 mg/dL LAB URINALYSIS - AUTOMATED METHOD 06/29/2025 3:11 AM EDT [facility] Leukocytes, Urine Small(A) Negative LAB URINALYSIS - AUTOMATED METHOD 06/29/2025 3:11 AM EDT [facility] Nitrite, Urine Negative Negative LAB URINALYSIS - AUTOMATED METHOD 06/29/2025 3:11 AM EDT [facility] RBC, Urine >50(A) 0 to 3 /HPF LAB URINALYSIS - AUTOMATED METHOD 06/29/2025 3:11 AM EDT [facility] Comment:This result was prev iously suppressed from the chart. WBC, Urine 11 - 20(A) 0 to 5 /HPF LAB URINALYSIS - AUTOMATED METHOD 06/29/2025 3:11 AM EDT [facility] Comment:This result was prev iously suppressed from the chart. Squamous Epithelial Cells 0 - 2 0 to 5 /HPF LAB URINALYSIS - AUTOMATED METHOD 06/29/2025 3:11 AM EDT [facility] Comment:This result was prev iously suppressed from the chart. Hyaline Casts >20(A) 0 to 5 /LPF LAB URINALYSIS - AUTOMATED METHOD 06/29/2025 3:11 AM EDT [facility] Comment:This result was prev iously suppressed from the chart. Bacteria, Urine Negative Negative LAB URINALYSIS - AUTOMATED METHOD 06/29/2025 3:11 AM EDT [facility] Comment:This result was prev iously suppressed from the chart. Yeast (Budding and/or Pseudohyphae) Present(A) Absent 06/29/2025 3:11 AM EDT [facility] Comment:This result was prev iously suppressed from the chart. Urine Urine specimen obtained by clean catch procedure / Unknown Non-blood Collection / Unknown 06/29/2025 2:00 AM EDT 06/29/2025 2:04 AM EDT Narrative [facility] - 06/29/2025 3:11 AM EDT Urinalysis dipstick results may be inaccurate due to specimen color or an interfering substance in the specimen.Test performed by manual method us Rg Coleman MD LAB URINE ORDERABLES Final Res ult [facility] [address] [place] [address] * (ABNORMAL) Troponin T, High Sensitivity, 2 Hour, Plasma (06/28/2025 11:57 PM EDT) Troponin T, High Sensitivity, 2 Hour 22(H) <19 ng/L 06/29/2025 12:22 AM EDT [facility] Troponin Delta 2 <10 ng/L 06/29/2025 12:22 AM EDT [facility] Troponin Delta Interpretation Not Significant 06/29/2025 12:22 AM EDT [facility] Comment:Not Significant. No acute change in troponin observed between the baseline and 2 hour samples. Blood Venous blood specimen / Unknown Venipuncture / Unknown 06/28/2025 11:57 PM EDT 06/29/2025 12:03 AM EDT us Rg Coleman MD LAB BLOOD ORDERABLES Final Res ult [facility] [address] [place] [address] * CT Angio Abdomen Pelvis (06/28/2025 11:11 [...] Total DLP (Dose-Length Product): 2949.46 mGy.cm (accession [id number]), 2949.46 mGy.cm (accession [id number]). Please note: The reported value represents the [...] Total DLP (Dose-Length Product): 2949.46 mGy.cm (accession [id number]),2949.46 mGy.cm (accession [id number]). Please note: The reported valuerepresents the total [...] Total DLP (Dose-Length Product): 2949.46 mGy.cm (accession [id number]), 2949.46 mGy.cm (accession [id number]). Please note: The reported value represents the [...] Total DLP (Dose-Length Product): 2949.46 mGy.cm (accession [id number]),2949.46 mGy.cm (accession [id number]). Please note: The reported valuerepresents the total [...] - 63 U/L 06/29/2025 7:03 AM EDT [facility] Blood Venous blood specimen / Unknown Venipuncture / Unknown 06/28/2025 9:39 PM EDT 06/28/2025 9:47 PM EDT us Homero Gutierrez APRN, DNP LAB BLOOD ORDERAB LES Final Result [facility] [address] [place] [address] * Blood Culture (Aerobic/Anaerobet Set) (06/28/2025 9:39 PM EDT) Culture No growth at day 5 07/03/2025 11:02 PM EDT [facility] Blood Structure of left hand / Unknown Venipuncture / Unknown 06/28/2025 9:39 PM EDT 06/28/2025 10:04 PM EDT us Rg Coleman MD LAB MICROBIOLOGY - GENERAL ORD ERABLES Final Result Performing Organization Address City/[facility]/ZIP Co de Phone Number [facility] [address] [place] [address] * Blood Culture (Aerobic/Anaerobet Set) (06/28/2025 9:39 PM EDT) Culture No growth at day 5 07/03/2025 11:02 PM EDT [facility] Blood Structure of part of right upper limb / Unknown Venipuncture / Unknown 06/28/2025 9:39 PM EDT 06/28/2025 10:05 PM EDT us Rg Coleman MD LAB MICROBIOLOGY - GENERAL ORD ERABLES Final Result Performing Organization Address City/[facility]/ZIP Co de Phone Number [facility] [address] [place] [address] * (ABNORMAL) C-Reactive protein (06/28/2025 9:39 PM EDT) CRP, Plasma 63.6(H) <=8.0 mg/L 06/28/2025 10:15 PM EDT [facility] Blood Venous blood specimen / Unknown Venipuncture / Unknown 06/28/2025 9:39 PM EDT 06/28/2025 9:47 PM EDT Narrative [facility] - 06/28/2025 10:15 PM EDT This CRP test is appropriate for assessment of infection, systemic inflammation and/or tissue injury. To assess cardiovascular disease risk order high sensitivity CRP (CRPH). Rg Coleman MD LAB BLOOD ORDERABLES Final Res ult Performing Organization Address City/[facility]/ZIP Co de Phone Number [facility] [address] [place] [address] * (ABNORMAL) Troponin now and 120 min (06/28/2025 9:39 PM EDT) Troponin T, High Sensitivity, 0 Hour 24(H) <19 ng/L 06/28/2025 10:15 PM EDT [facility] Blood Venous blood specimen / Unknown Venipuncture / Unknown 06/28/2025 9:39 PM EDT 06/28/2025 9:47 PM EDT Rg Coleman MD LAB BLOOD ORDERABLES Final Res ult Performing Organization Address City/[facility]/ZIP Co de Phone Number [facility] [address] [place] [address] * (ABNORMAL) CMP (06/28/2025 9:39 PM EDT) Glucose, Plasma 122(H) 74 - 99 mg/dL 06/28/2025 10:15 PM EDT [facility] BUN, Plasma 23 8 - 23 mg/dL 06/28/2025 10:15 PM EDT [facility] Creatinine, Plasma 1.49(H) 0.70 - 1.20 mg/dL 06/28/2025 10:15 PM EDT [facility] BUN/Creatinine Ratio 15 06/28/2025 10:15 PM EDT [facility] Sodium, Plasma 131(L) 136 - 145 mmol/L 06/28/2025 10:15 PM EDT [facility] Potassium, Plasma 3.7 3.6 - 4.9 mmol/L 06/28/2025 10:15 PM EDT [facility] Chloride, Plasma 98 97 - 107 mmol/L 06/28/2025 10:15 PM EDT [facility] CO2, Plasma 20(L) 22 - 29 mmol/L 06/28/2025 10:15 PM EDT [facility] Anion Gap 13 6 - 16 mmol/L 06/28/2025 10:15 PM EDT [facility] Total Calcium, Plasma 8.1(L) 8.9 - 10.2 mg/dL 06/28/2025 10:15 PM EDT [facility] Total Protein 5.3(L) 6.3 - 7.9 g/dL 06/28/2025 10:15 PM EDT [facility] Albumin, Plasma 2.7(L) 3.5 - 5.2 g/dL 06/28/2025 10:15 PM EDT [facility] AST, Plasma 67(H) 10 - 50 U/L 06/28/2025 10:15 PM EDT [facility] ALT, Plasma 49 10 - 50 U/L 06/28/2025 10:15 PM EDT [facility] Alkaline Phosphatase, Plasma 157(H) 40 - 115 U/L 06/28/2025 10:15 PM EDT [facility] Total Bilirubin, Plasma 2.8(H) 0.2 - 1.1 mg/dL 06/28/2025 10:15 PM EDT [facility] eGFRcr 50.2 mL/min/1.7 3m*2 06/28/2025 10:15 PM EDT [facility] Comment:Reported eGFRcr in m L/min/1.73m2 is based the CKD-EPI 2020 equation that does not use a race coefficient. Blood Venous blood specimen / Unknown Venipuncture / Unknown 06/28/2025 9:39 PM EDT 06/28/2025 9:47 PM EDT us Rg Coleman MD LAB BLOOD ORDERABLES Final Res ult Performing Organization Address [facility]/ZIP Co de Phone Number [facility] [address] [place] [address] * Type and screen (06/28/2025 9:39 PM [...] TEST ORDERABLES Final Result Performing Organization Address [facility] Co de Phone Number BLOOD BANK [address] * (ABNORMAL) APTT (06/28/2025 9:39 PM EDT) aPTT 70(H) 25 - 35 sec 06/28/2025 10:05 PM EDT [facility] Blood Venous blood specimen / Unknown Venipuncture / Unknown 06/28/2025 9:39 PM EDT 06/28/2025 9:47 PM EDT Rg Coleman MD LAB BLOOD ORDERABLES Final Res ult Performing Organization Address City/[facility]/ZIP Co de Phone Number [facility] [address] [place] [address] * (ABNORMAL) CBC w/diff (06/28/2025 9:39 PM EDT) WBC Count 23.92(H) 3.70 - 10.30 10*3/uL LAB HEMATOLOGY METHOD 06/29/2025 1:00 AM EDT [facility] RBC Count 3.78(L) 4.60 - 6.10 10*6/uL LAB HEMATOLOGY METHOD 06/29/2025 1:00 AM EDT [facility] HGB 12.3(L) 13.7 - 17.5 g/dL LAB HEMATOLOGY METHOD 06/29/2025 1:00 AM EDT [facility] HCT 34.7(L) 40.0 - 51.0 % LAB HEMATOLOGY METHOD 06/29/2025 1:00 AM EDT [facility] Platelet Count 128(L) 155 - 369 10*3/uL LAB HEMATOLOGY METHOD 06/29/2025 1:00 AM EDT [facility] MCV 92 79 - 98 fL LAB HEMATOLOGY METHOD 06/29/2025 1:00 AM EDT [facility] MCH 32.5(H) 26.0 - 32.0 pg LAB HEMATOLOGY METHOD 06/29/2025 1:00 AM EDT [facility] MCHC 35.4 30.7 - 35.5 g/dL LAB HEMATOLOGY METHOD 06/29/2025 1:00 AM EDT [facility] RDW 16.3(H) 11.5 - 14.5 % LAB HEMATOLOGY METHOD 06/29/2025 1:00 AM EDT [facility] MPV 12.2 8.8 - 12.5 fL LAB HEMATOLOGY METHOD 06/29/2025 1:00 AM EDT [facility] nRBC 0.0 <=0.0 per 100 WBCs LAB HEMATOLOGY METHOD 06/29/2025 1:00 AM EDT [facility] Differential Type Automated LAB HEMATOLOGY METHOD 06/29/2025 1:00 AM EDT [facility] Neutrophils % 59 % LAB HEMATOLOGY METHOD 06/29/2025 1:00 AM EDT [facility] Lymphocytes % 37 % LAB HEMATOLOGY METHOD 06/29/2025 1:00 AM EDT [facility] Monocytes % 3 % LAB HEMATOLOGY METHOD 06/29/2025 1:00 AM EDT [facility] Eosinophils % 0 % LAB HEMATOLOGY METHOD 06/29/2025 1:00 AM EDT [facility] Basophils % 0 % LAB HEMATOLOGY METHOD 06/29/2025 1:00 AM EDT [facility] Immature Granulocytes % 1 % LAB HEMATOLOGY METHOD 06/29/2025 1:00 AM EDT [facility] Neutrophils Absolute 13.97(H) 1.60 - 6.10 10*3/uL LAB HEMATOLOGY METHOD 06/29/2025 1:00 AM EDT [facility] Lymphocytes Absolute 8.87(H) 1.20 - 3.90 10*3/uL LAB HEMATOLOGY METHOD 06/29/2025 1:00 AM EDT [facility] Monocytes Absolute 0.73 0.30 - 0.90 10*3/uL LAB HEMATOLOGY METHOD 06/29/2025 1:00 AM EDT [facility] Eosinophils Absolute 0.07 0.00 - 0.50 10*3/uL LAB HEMATOLOGY METHOD 06/29/2025 1:00 AM EDT [facility] Basophils Absolute 0.06 0.00 - 0.10 10*3/uL LAB HEMATOLOGY METHOD 06/29/2025 1:00 AM EDT [facility] Immature Granulocytes Absolute 0.16(H) 0.00 - 0.06 10*3/uL LAB HEMATOLOGY METHOD 06/29/2025 1:00 AM EDT [facility] Blood Venous blood specimen / Unknown Venipuncture / Unknown 06/28/2025 9:39 PM EDT 06/28/2025 9:47 PM EDT Narrative [facility] - 06/29/2025 1:00 AM EDT Therapeutic decision making should be based on absolute values, rather than percentages. us Rg Coleman MD LAB BLOOD ORDERABLES Final Res ult [facility] [address] [place] [address] * (ABNORMAL) PT-INR (06/28/2025 9:39 PM EDT) Prothrombin Time 21.0(H) 12.0 - 14.3 sec 06/28/2025 10:04 PM EDT [facility] INR 1.8(H) 0.9 - 1.1 06/28/2025 10:04 PM EDT [facility] Blood Venous blood specimen / Unknown Venipuncture / Unknown 06/28/2025 9:39 PM EDT 06/28/2025 9:47 PM EDT Narrative [facility] - 06/28/2025 10:04 PM EDT OPTIMAL INR RANGES FOR PATIENT ON ORAL ANTICOAGULANT THERAPY Prevention of venous thromboembolism INR 2.0 to 3.0 In patients with heart disease: Atrial fibrillation INR 2.0 to 3.0 Valvular heart disease INR 2.0 to 3.0 Tissue heart valves INR 2.0 to 3.0 Mechanical prosthetic valves INR 2.5 to 3.5 Prevention of recurrent TN INR 2.5 to 3.5 us Rg Coleman MD LAB BLOOD ORDERABLES Final Res ult [facility] [address] [place] [address] * (ABNORMAL) POCT venous blood gas gem (06/28/2025 9:33 PM EDT) pH, Venous 7.50(H) 7.32 - 7.43 06/28/2025 9:[address] [facility] pCO2, Venous 28(L) 40 - 55 mm Hg 06/28/2025 9:[address] [facility] pO2, Venous 66(H) 25 - 40 mm Hg 06/28/2025 9:[address] [facility] SO2, Venous 96(H) 65 - 80 % 06/28/2025 9:[address] [facility] Base Excess/Deficit, Venous -0.3 -2 - 3 mmol/L 06/28/2025 9:[address] [facility] HCO3, Venous 21.8(L) 22 - 26 mmol/L 06/28/2025 9:[address] [facility] Hemoglobin, Venous 12.8(L) 13.7 - 17.5 g/dL 06/28/2025 9:[address] [facility] Hematocrit, Venous 38.0(L) 40.0 - 51.0 % 06/28/2025 9:[address] [facility] Sodium, Venous 129(L) 136 - 145 mmol/L 06/28/2025 9:[address] [facility] Potassium, Venous 3.6 3.6 - 4.9 mmol/L 06/28/2025 9:[address] [facility] Comment:Hemolyzed, result ma y be falsely increased. POCT Chloride, Venous 98 97 - 107 mmol/L 06/28/2025 9:[address] [facility] Glucose, Venous 114(H) 74 - 99 mg/dL 06/28/2025 9:[address] [facility] Ionized Calcium, Venous 4.2(L) 4.6 - 5.1 mg/dL 06/28/2025 9:[address] [facility] Lactate, Venous 2.5(H) 0.5 - 2.2 mmol/L 06/28/2025 9:[address] [facility] Body Temperature 37.0 Celsius 06/28/2025 9:[address] [facility] pH, Temp Corrected, Venous 7.50(H) 7.32 - 7.43 06/28/2025 9:[address] [facility] pCO2, Temp Corrected, Venous 28(L) 40 - 55 mm Hg 06/28/2025 9:[address] [facility] pO2, Temp Corrected, Venous 66(H) 25 - 40 mm Hg 06/28/2025 9:[address] [facility] Stone Hand ID [email or web address] 06/28/2025 9:[address] [facility] Blood, Venous Whole blood specimen / Unknown 06/28/2025 9:33 PM EDT 06/28/2025 9:35 PM EDT us Generic Provider Poct LAB POINT OF CARE TEST DOCKED DEVICE UNSOLICITED RESULTS Final Result Performing Organization Address City/State/[facility] Phone Number [facility] [address] [place] [address] * (ABNORMAL) POCT glucose meter (06/28/2025 9:22 PM EDT) Pathologist [facility] POCT Glucose 119(H) 74 - 99 mg/dL [...] Comment 06/28/2025 9:23 PM EDT [facility] Stone Hand ID Abdi Major 06/28/2025 9:23 PM EDT [facility] Device ID [id number] 06/28/2025 9:23 PM EDT [facility] Specimen Type POC Capillary 06/28/2025 9:23 PM EDT [facility] Blood Capillary blood specimen / Unknown 06/28/2025 9:22 PM EDT 06/28/2025 9:23 PM EDT us Generic Provider Poct LAB POINT OF CARE TEST DOCKED DEVICE UNSOLICITED RESULTS Final Result Performing Organization Address City/State/[facility] Co de Phone Number [facility] [address] [place] [address] documented in this encounter Visit Diagnoses Diagnosis Sepsis, localized, in operative wound (CMS/HCC)- Primary Febrile illness Hypotension, unspecified hypotension type Right ureteral stone Cirrhosis of liver with ascites, unspecified hepatic cirrhosis type Severe obesity (BMI 35.0-39.9) with comorbidity [...] Mon06/29/25 at 0900, Until Discontinued, Routine Given 07/04/2025 [...] 1 Application Nasal, Once, 1 dose, On [facility] 07/03/25 at 1715, Routine Given 07/03/2025 4:54 PM EDT 1 Application Povidone-Iodine 5 % swab solution Apply externally, 1 Hour Prior To Procedure, 1 dose, On [facility] 07/03/25 at 1800, Routine Given 07/03/2025 5:07 PM EDT sodium chloride 0.9 % flush 10 mL 10 mL, Intravenous, Every 12 hours, First dose on [place] 06/29/25 at 0520, Until Discontinued, Routine Given 07/04/2025 [...] Oral, Daily with dinner, First dose on [place] 06/29/25 at 1800, Until Discontinued, Routine Given [...] RN)1400 (Due)1750 ([place] - Provider: Lary Bloom, TECHNICAL SPECIALIST CYTOLOGY, DNP) cefepime (Maxipime) 2 g in sodium [...] Reason: Patient/family refused)204 (Given - Provider: Marielena Munoz, TIERA) 0954 (Given - Provider: Jing Field, TIERA)1546 (Given - Provider: Jing Field RN)161 (MAR Hold - Provider: Automatic Transfer Provider [...] Jing Field RN)1546 (Given - Provider: Jing Field, TIERA)161 (MAR Hold - Provider: Automatic Transfer Provider [...] Routine 0848 (Given - Provider: Jing Field, TIERA)204 (Not Given - Provider: Marielena Munoz RN - Reason: Patient/family refused) 0953 (Given - Provider: Jing Field, TIERA)161 (MAR Hold - Provider: Automatic Transfer Provider - Reason: Patient in procedure)2032 (MAR Unhold - Provider: Automatic Transfer Provider)222 (Not Given - Provider: Claude Ash RN - Reason: Patient/family refused - Comment: already received 2 doses today) 0819 (Given - Provider: Ju Herrera RN) Povidone-Iodine 5 % swab solution 1 Application (COMPLETED) Nasal, Once, 1 dose, On [place] 07/03/25 at 1715, Routine 1654 (Given - Provider: [...] Marielena Munoz RN - Reason: Patient/family refused)161 (MAR Hold - Provider: Automatic Transfer Provider - Reason: Patient in procedure)1720 (Dose Auto Held - Provider: Automatic Transfer Provider)2032 ([facility] Unhold - Provider: Automatic Transfer Provider) 0711 (Given - Provider: Claude Ash RN) tamsulosin (Flomax) 24 hr capsule 0.4 mg 0.4 mg, Oral, Daily with dinner, First dose on 06/29/25 at 1800, Until Discontinued, Routine 171 (Given - Provider: Jing Feild RN) 1618 ([facility] Hold - Provider: Automatic Transfer Provider - Reason: Patient in procedure)1800 (Dose Auto Held - Provider: Automatic Transfer Provider)2032 ([facility] Unhold - Provider: Automatic Transfer Provider) PRN Medication Order 07/02/2025 07/03/2025 07/04/2025 bisacodyl (Dulcolax) suppository 10 mg 10 mg, Rectal, Daily PRN, Starting on 06/30/25 at 0606, Until Mon07/04/25 at 1650, Routine, constipation 161 ([facility] Hold - Provider: Automatic Transfer Provider - Reason: Patient in procedure)2032 ([facility] Unhold - Provider: Automatic Transfer Provider) iohexol (OMNIPaque) 300 MG/ML injection (CANCELED) As needed, Starting on [place] 07/03/25 at 1758, Until [place] 07/03/25 at 1844, Routine, Intraprocedure 175 (Given - Provider: Dyllan Paul MD) methocarbamol (Robaxin) tablet 500 mg 500 mg, Oral, 4 times daily PRN, Starting on 06/29/25 at 0627, Until Mon07/04/25 at 1650, Routine, muscle spasms 161 ([facility] Hold - Provider: Automatic Transfer Provider - Reason: Patient in procedure)2032 ([facility] Unhold - Provider: Automatic Transfer Provider) ondansetron (Zofran) injection 4 mg(Linked Group 2) 4 mg, Intravenous, Every 6 hours PRN, Starting on 06/30/25 at 1657, Until Mon07/04/25 at 1650, Routine, vomiting, nausea 161 ([facility] Hold - Provider: Automatic Transfer Provider - Reason: Patient in procedure)2032 ([facility] Unhold - Provider: Automatic Transfer Provider) ondansetron (Zofran) injection 4 mg (COMPLETED) 4 mg, Intravenous, Once as needed, 1 dose, Starting on [place] 07/03/25 at 1627, Until [place] 07/03/25 at 1805, Routine, Holding - Preprocedure, nausea, vomiting 1805 (Given - Provider: Lary Bloom, TECHNICAL SPECIALIST CYTOLOGY, DNP) ondansetron ODT (Zofran-ODT) disintegrating tablet 4 mg(Linked Group 2) 4 mg, Oral, Every 6 hours PRN, Starting on 06/30/25 at 1657, Until Mon07/04/25 at 1650, Routine, nausea, vomiting 1618 ([facility] Hold - Provider: Automatic Transfer Provider - Reason: Patient in procedure)2032 ([facility] Unhold - Provider: Automatic Transfer Provider) oxyCODONE (Roxicodone) immediate release tablet 5 mg 5 mg, Oral, Every 6 hours PRN, Starting on 06/29/25 at 1605, Until Mon07/04/25 at 1650, Routine, moderate pain 2040 (Given - Provider: Marielena Munoz, TIERA) 161 ([facility] Hold - Provider: Automatic Transfer Provider - Reason: Patient in procedure)2032 ([facility] Unhold - Provider: Automatic Transfer Provider)2226 (Given - Provider: Claude Ash RN) sodium chloride 0.9 % flush 10 mL(Linked Group 1) 10 mL, Intravenous, As needed, Starting on 06/29/25 at 0517, Until Mon07/04/25 at 1650, Routine, line care 1618 ([facility] Hold - Provider: Automatic Transfer Provider - Reason: Patient in procedure)2032 ([facility] Unhold - Provider: Automatic Transfer Provider) Linked Groups Order Group 1: Insert peripheral IV (CANCELED) Once, On 06/29/25 at 0518, For 1 occurrence And Saline lock IV (CANCELED) Once, On 06/29/25 at 0518, For 1 occurrence And sodium chloride 0.9 % flush 10 mLJump to med 10 mL, Intravenous, Every 12 hours, First dose on 06/29/25 at 0520, Until Discontinued, Routine And sodium [...] documented as of this encounter Care Teams Deputy Chief Magistrate Relationship Specialty Start Date End Date Murray Prajapati MD [address] [facility] [address] [place] [id number] PCP - General 03/06/23 Jaja Camara, KEEPER HELPER [address] [place] [facility] [address] [place] [address] Referring Physician Gastroenterology 03/06/23 Dyllan Paul MD [address] [facility] [address] [place] [address] Surgeon Urology 04/29/25 Marlin Martinez, RN [facility] Registered Nurse 06/30/25 06/30/25 documented as of this encounter
--- OUTSIDE RECORDS SUMMARY | 2025-07-03 16:23 | XMS_ITS | Encounter Summary ---
Author Organization [facility] Address [address] [place] [address] Care Team Providers Care Cardroom Supervisor Name Role Phone Murray Prajapati MD Primary Care Provider [phone] Jaja Camara ENROLLMENT COUNSELOR Unavailable [phone] Dyllan Paul MD Unavailable [phone] Reason for Visit * Reason Comments Fever Post-op Problem Fatigue * Auth/Cert (Routine) Specialty Diagnoses / Procedures Referred By Silverio barone Referred To Contact Diagnoses Sepsis, localized, in operative wound (CMS/HCC) Lizzie Cadena MD [address] [place] [address] Phone: tel: fax: P[facility] A Inpatient [address] [place] [address] Referral ID Status Reason Start Date Expiration Date Visits Re quested Visits Authorized [id number] 1 1 Encounter Details Date Type Department Care Team (Late st Contact Info) Description 07/03/2025 4:23 PM EDT - 07/03/2025 5:08 PM EDT Surgery [facility] A OPERATING ROOM [address] [place] [address] Dyllan Paul MD [address] [facility] [address] [place] [address] CYSTOSCOPY, WITH URETERAL STENT INSERTION [[id number] (CPT )] Surgery Details Date/Time Status Location OR Service Patient Class Case Cl ass Case Type Trauma Case? 07/03/2025 4:23 PM Posted [facility] Inpatient T-Timed: to be done within 24 hours Panel 1 Procedure LRB Anes Op Region Wound Class Comments CYSTOSCOPY, WITH URETERAL ST ENT INSERTION Right Choice CYSTOLITHOTOMY Right General Bladder Surgeon Surgeon Role Service Panel Dyllan Paul MD Primary Urology 1 Sherry Santos MD Resident - Assisting 1 Special Needs Cmax documented in this encounter Social History Tobacco [...] any time in the past 12 m [facility], were you homeless or living in a usp (including now)? No 06/16/2025 CAGE ASSESSMENT Answer [...] drink first t rafy in the morning (EYE-GALLEY COOK) to steady your nerves or to get rid of a hangover? 0 06/28/2025 CAGE Questionnaire Score 0 025 Utilities Answer Date Recorded In the past 12 months has th Optifree[employer], gas, oil, or water company threatened to [...] Sign Reading Time Taken Comments Blood Pressure 111/60 07/03/2025 4:35 PM EDT Pulse 87 07/03/2025 4:35 PM EDT Temperature 36.5 C (97.7 F) 07/03/2025 4:35 PM EDT Respiratory Rate 18 07/03/2025 4:35 PM EDT Oxygen Saturation 95% 07/03/2025 4:35 PM EDT Inhaled Oxygen Concentration - - Weight 109 kg (239 lb 3.2 oz) 07/03/2025 6:00 AM EDT Height 175.3 cm (5' 9 ) 06/28/2025 9:29 PM EDT Body Mass Index 37.11 06/28/2025 9:29 PM EDT documented in this encounter Functional Status * Calculated C-SSRS Risk Score (Lifetime/Recent) Answer Date of Assessment Author No Risk Indicated 07/02/2025 8:00 PM EDT Cyndi Munoz RN * Question Answer Date of Assessment Author 1. Wish to be (Past 1 Month) No 025 8:00 PM EDT Marielena Munoz RN 2. Non-Specific Active Suici tyra Thoughts (Past 1 Month) No 07/02/2025 8:00 PM EDT Marielena Munoz RN 6. Suicidal Behavior (Lifetime) No 8:00 PM EDT Marielena Munoz RN documented as of this encounter Medications at Time of Discharge atorvastatin (Lipitor) 10 MG tablet Take 1 tablet by mouth daily. enoxaparin (Lovenox) 120 MG/0.8ML solution prefilled syringe Inject 0.8 mL under the skin every 12 hours. 180 each 06/25/2025 5 miconazole (Micotin) 2 % powder Apply to [...] by mouth daily. 473 mL 1 06/26/2025 methocarbamol (Robaxin) 750 MG tablet Take 1 [...] PCP name and Address: Murray Prajapati MD [address] [place] [address] [address] / Lauren [facility] Referring provider name and address: No referring [...] known as: Micotin Apply to affected areas lmibciynolww-pimt-sseirhod-folic acid chewable tablet Chew 1 tablet daily. [...] Your Medications These medications were sent to [facility] - [place], [place] - [address] [facility] [address] acetaminophen 500 MG tablet fluconazole 200 MG [...] preparation for this discharge. Quentin Anderson MD, [facility], FACP Planning Analyst Division of Hospital Medicine * Progress Notes - Bianka Hansen MD - 07/04/2025 2:06 PM EDT [facility] Urology Inpatient Progress Note Primary Attending: [...] Hansen MD Department of Urology, PGY-1 Pager: [phone] Cosigned by Dyllan Paul MD at 07/07/2025 7:10 PM EDT Associated attestation - Dyllan Paul MD - 07/07/2025 7:10 PM EDT I saw and evaluated the patient. I discussed the case with the resident/fellow and agree with the findings and plan as documented. * Nursing Note - Ju Herrera RN - 07/04/2025 2:00 PM EDT Patient AVS summary printed and discharge education provided. [id number] delivered at bedside. PIVs removed with tips [...] degrees Taken 07/03/2025 185 by Jackeline Deleon, RN Activity Management: activity adjusted per tolerance Taken 07/03/2025 000 by Marielena Munoz, RN Pressure Reduction Techniques: frequent weight shift encouraged Problem: Fall Injury Risk Goal: Absence of Fall and Fall-Related Injury Intervention: Identify and Manage Contributors Flowsheets Taken 07/04/2025 1159 by Ju Herrera RN Self-Care Promotion: meal set-up provided adaptive equipment use encouraged Taken 07/03/2025 1117 by Jing Field key account director Review/Management: medications reviewed Problem: Fall Injury Risk [...] Daily Living Intervention: Promote Activity and Functional [place] Flowsheets Taken 07/04/2025 1159 by Ju Herrera [...] from the original note were not included. [address] Using an Incentive Spirometer An incentive spirometer [...] rate Last Reviewed Date: 2025 00:00:00 ?? [id number] The [employer]. All rights reserved. This information is not intended as a substitute for professional medical care. Always follow your healthcare professional's instructions. * Laury OnIR - Ju Herrera RN - 07/04/2025 11:53 [...] the video go to this web address: [email or web address] Or, scan this QR code with your smart phone Last Reviewed Date: 2020 00:00:00 ?? [id number] The [employer]. All rights reserved. This information is not [...] Note Scout Lowe 70 y.o. male CSN: [id number] Admission: 06/28/2025 9:28 PM Primary Problem: Sepsis, localized, in operative wound (CMS/HCC) Primary Insurance Processor: Primary Caregiver: Self Assistance Available at Discharge: Availability of Care Givers (#Hours): 24 hours Family/Insurance Processor(s) Willingness Assessed to care for patient at home: Yes (pt's present at bedside) Family/Insurance Processor(s) Readiness Assessed to care for patient at [...] Risk Flowsheets (Taken 07/03/20251116 by Jing Field, RN) Safety Promotion/Fall Prevention: activity supervised Intervention: Prevent Skin Injury Flowsheets (Taken 07/03/20251849 by Jackeline Deleon, TIERA) Body Position: foot of bed elevated neutral [...] per tolerance Taken 07/03/20255 by Marielena Munoz, TIERA Pressure Reduction Techniques: [...] Measures: lightweight bedding Taken 07/03/20255 by Marielena Munoz, TIERA Infection Management: aseptic [...] Safe Activity Flowsheets Taken 07/03/20251849 by Jackeline Deleon RN Activity Management: activity adjusted per tolerance Taken 07/03/20251116 by Jing Field RN Safety Promotion/Fall Prevention: activity supervised Self-Care Promotion: independence encouraged Problem: Self-Care Deficit Goal: Improved Ability to Complete Activities of Daily Living Outcome: Ongoing, Progressing Intervention: Promote Activity and Functional [place] Flowsheets (Taken 07/03/20251116 by Jing Field, TIERA) [...] Postoperative Diagnosis: Same Surgeon: Dyllan Paul MD Ball Warper Tender Surgeon: Sherry Santos MD Intraoperative Findings: Intraoperative [...] Anderson MD - 07/03/2025 3:07 PM EDT [facility] MEDICINE PROGRESS NOTE HPI: 70 y.o. [...] chloride, 10 mL, PRN Quentin Anderson MD, [facility], FACP Planning Analyst Division of Hospital Medicine * Care Plan [...] Ongoing, Progressing Intervention: Promote Activity and Functional [place] Flowsheets (Taken 07/03/20251116) Activity Assistance Provided: assistance, [...] Ongoing, Progressing Intervention: Promote Activity and Functional [place] Flowsheets (Taken 07/03/20255) Activity Assistance Provided: assistance, [...] Anderson MD - 07/02/2025 3:24 PM EDT HOSPITAL MEDICINE PROGRESS NOTE HPI: [...] chloride, 10 mL, PRN Quentin Anderson MD, [facility] Planning Analyst Division of Hospital Medicine * Care Plan - Jing Field RN - 07/02/2025 10:53 AM EDT Problem: Adult Inpatient Plan of Care Goal: Plan of Care Review Outcome: Ongoing, Progressing Flowsheets Taken 07/02/20251044 by Jing Field RN Progress: improving Plan [...] Intervention: Prevent Skin Injury Flowsheets Taken 07/02/2025 08 by Goodlett, Jing M, RN Body Position: turned heels elevated Taken 07/01/2025 2332 by Marielena Munoz, RN Skin Protection: incontinence pads utilized Intervention: [...] Ongoing, Progressing Intervention: Promote Activity and Functional [place] Flowsheets (Taken 07/02/20251044) Self-Care Promotion: independence encouraged BADL personal objects within reach * Care Plan - Marielena Munoz RN - 07/01/2025 11:40 PM EDT Problem: Adult Inpatient Plan of Care Goal: Plan of Care Review Outcome: Ongoing, Progressing Flowsheets (Taken 07/01/20252331) Progress: improving Plan of Care Reviewed With: patient Goal: Patient-Specific Goal (Individualized) Outcome: Ongoing, Progressing Flowsheets (Taken 07/01/2025 2200) Patient/Family-Specific Goals (Include Timeframe): Patient will remain [...] Ongoing, Progressing Intervention: Promote Activity and Functional [place] Flowsheets (Taken 07/01/20252331) Activity Assistance Provided: assistance, 2 people Self-Care Promotion: independence encouraged BADL personal objects within reach * Progress Notes - Pepito Iyer, Guero - 07/01/2025 2:23 PM EDT Pharmacokinetic Consult [...] Anderson MD - 07/01/2025 2:05 PM EDT [facility] MEDICINE PROGRESS NOTE HPI: 70 y.o. [...] chloride, 10 mL, PRN Quentin Anderson MD, [facility], FACP Planning Analyst Division of Hospital Medicine * Progress Notes - Richa Raymundo RN - 07/01/2025 1:30 PM EDT Case Management Adult Initial Progress Note Scout Lowe 70 y.o. male CSN: [id number] Admission: 06/28/2025 9:28 PM Primary Problem: Sepsis, localized, in operative wound (CMS/HCC) Salesperson Flowers reviewed chart and spoke with pt and patient's to complete this Initial Case Management Assessment. PCP: Murray Prajapati MD Emergency Contact: Extended Emergency Contact Information Primary Emergency Contact: JAVON LOWE Mobile Relation: Spouse Head Of Business Development needed? No Insurance: Primary Visit Coverage Payer Plan Sponsor Code Group Number Group Name DANIKA GARNICA TRADITIONAL/[place] STATE/FED BCBS [id number] Primary Visit Coverage Subscriber Subscriber ID Subscriber Name Subscriber N Subscriber Address [id number] JAVON LOWE [id number] [place] [address] Secondary Visit Coverage Payer Plan Sponsor Code Group Number Group Name MEDICARE MEDICARE PART A ONLY Secondary Visit Coverage Subscriber Subscriber ID Subscriber Name Subscriber SSN Subscriber Address [id number] SCOUT LOWE [id number] [place] [address] Patient information: Primary Caregiver: Self Accompanied by/Relationship: Javon Support System: Immediate family Daily Living Activities: Functional Status: Independent Living Arrangements: Family Type of Residence: Single Level [address] [place] [address] Current DME: Equipment Currently Used at Home: walker, rolling, tub bench Anticipated Discharge Date: TBD Patient's Discharge Goal: to d/c home with his once medically appropriate Assistance Available at Discharge: as needed Discharge Transport: family Follow Up Transport: family Home Health / Home Infusion / Outpatient Dialysis Services: n/a Living Will/Advance Directive/Power of Shells Inspector /Guardian: Have you reviewed your Advance Directive [...] tub bench. Pt's EC is his Javon, ph#[phone]. Pt was evaluated by PT/OT and currently has home w/assist recs and no DME. Per pt his family will provide him with transportation home at d/c and assistance as needed. TIERA CM will continue to follow and assist with d/c plan and as needed. Richa Raymundo RN * Progress Notes - Bianka Hansen MD - 07/01/2025 11:20 AM EDT [facility] Urology Inpatient Progress Note Primary Attending: [...] bacteria neg nitrite, 11-20 WBC, >50 RBC. 8/10 Urine culture growing 10-100k cfu/ml diutina rugosa. [...] and pt's adequate urine output. Will con purchase analyst stenting pt on if he is not [...] scheduled Intervention: Prevent Skin Injury Flowsheets Taken 07/01/2025750 by Anastasia Starr RN Body Position: heels elevated Taken 06/30/20251999 by Faby Paige RN Skin Protection: incontinence pads utilized Intervention: Prevent and Manage VTE (Venous Thromboembolism) Risk Flowsheets (Taken 07/01/2025 0400 by Faby Paige RN) VTE Prevention/Management: medication Intervention: Prevent Infection Flowsheets (Taken 06/29/20251522 by Tenisha Amador RN) Infection Prevention: environmental surveillance performed Goal: Optimal Comfort and Wellbeing Outcome: Ongoing, Progressing Intervention: Monitor Pain and Promote Comfort Flowsheets (Taken 07/01/2025 075) Pain Management Interventions: position adjusted Intervention: Provide [...] Skin Protection: incontinence pads utilized Taken 06/29/2025 1738 by Kassandra Handy RN Pressure Reduction Techniques: [...] Ongoing, Progressing Intervention: Promote Activity and Functional [place] Flowsheets Taken 06/30/20251999 by Faby Paige RN Activity Assistance Provided: assistance, 2 people Taken 06/29/20251737 by Kassandra Handy RN Self-Care Promotion: independence [...] - complicates all aspects of care [facility] Medicine * Progress Notes - Agatha Cruz [...] work-up of Sepsis, localized, in operative wound ([facility]). Problem List Active Hospital Problems Diagnosis Date Noted Sepsis, localized, in operative wound ([facility]/HCC) 06/29/2025 UTI (urinary tract infection) 06/29/2025 Hypotension 06/13/2025 Prostate CA ([facility]/HCC) 06/12/2025 Cirrhosis of liver ([facility]/HCC) 06/12/2025 Leukocytosis 06/12/2025 Hyperlipidemia 06/12/2025 Anemia 06/12/2025 Renal calculi 06/12/2025 Severe obesity (BMI 35.0-39.9) with comorbidity ([facility]/HCC) 06/03/2025 Procedures Past Medical History Patient has a past medical history of Cancer ([facility]/HCC) (january 26, 2025), Cirrhosis ([facility]/HCC) (2021),History of methicillin resistant Staphylococcus aureus (2011), [...] a 70 y/o male who presents to [facility] with possible sepsis. Participants [...] admission Level of Mobility: Ambulatory- community Mobility Buford: Independent gait without device History of Falls: [...] Mobility Bed Mobility Exam: Scooting/Bridging Level of Buford: Stand-by assist Physical/Nonphysical Assist: Supervision Bed Mobility Exam: Supine to Sit Level of Buford: Stand-by assist Physical/Nonphysical Assist: Supervision Transfers Transfer Exam: Sit to stand Level of Buford: Stand-by assist Assistive Device: Hand held assist Transfer Exam: Stand to Sit Level of Buford: Stand-by assist Physical/Nonphysical Assist: Supervision Assistive Device: Hand held assist Ambulation Device: No device Assistance: Standby assist Distance : 5 ft. to recliner Ambulation Comments: Patient demonstrates decreased ashley and step length with no loss of balance Standardized Assessments Standardized Assessments Standardized Assessments: [facility] 6-Clicks Mobility Assessment [facility] 6-Clicks Mobility Assessment Difficulty patient has [...] 3-5 steps with a railing?: A little [facility] 6-Clicks Mobility Assessment Total : 18 Standardized Assessments Standardized Assessments Standardized Assessments: [facility] 6-Clicks Mobility Assessment [facility] 6-Clicks Mobility Assessment Difficulty patient has [...] 3-5 steps with a railing?: A little [facility] 6-Clicks Mobility Assessment Total : 18 [...] Hansen MD - 06/30/2025 1:15 PM EDT [facility] Urology Inpatient Progress Note Primary Attending: [...] days Lab Units 06/29/25 0200 COLOR UA Kathleen SPEC GRAV U 1.030 PH UA 5.5 [...] work-up of Sepsis, localized, in operative wound ([facility]). Problem List Active Hospital Problems Diagnosis Date Noted Sepsis, localized, in operative wound ([facility]) 06/29/2025 UTI (urinary tract infection) 06/29/2025 Hypotension 06/13/2025 Prostate CA ([facility]) 06/12/2025 Cirrhosis of liver ([facility]) 06/12/2025 Leukocytosis 06/12/2025 Hyperlipidemia 06/12/2025 Anemia 06/12/2025 Renal calculi 06/12/2025 Severe obesity (BMI 35.0-39.9) with comorbidity ([facility]) 06/03/2025 Procedures Past Medical History Patient has a past medical history of Cancer ([facility]) (january 26, 2025), Cirrhosis ([facility]) (2021),History of methicillin resistant Staphylococcus aureus [...] admission Level of Mobility: Ambulatory- community Mobility Buford: Independent gait without device History of Falls: [...] Mobility Bed Mobility Exam: Scooting/Bridging Level of Buford: Stand-by assist Physical/Nonphysical Assist: Supervision Bed Mobility Exam: Supine to Sit Level of Buford: Stand-by assist Physical/Nonphysical Assist: Supervision Transfers Transfer Exam: Sit to stand Level of Buford: Stand-by assist Assistive Device: Hand held assist Transfer Exam: Stand to Sit Level of Buford: Stand-by assist Physical/Nonphysical Assist: Supervision Assistive Device: Hand held assist Functional Mobility Device: No device Assistance: Standby assist Distance : 5 ft. to recliner Self-Care Interventions Lower Extremity Dressing Sock Level of Assistance: Maximum assistance LE Dressing Where Assessed: Bed level Toileting Toileting Adaptive Equipment: Catheterization equipment Toileting Level of Assistance: Dependent Where Assessed: Bed level Toileting Interventions: use of [employer] system Standardized Assessments [facility] 6-Click Daily Activities Help from Other: Don/Doff Regular Lower Body Clothings: Little Help From Other: Bathing: Little Help From Other: Toileting: Little Help From Other: Don/Doff Upper Body Clothings: None Help From Other: Grooming: None Help From Other: Eating Meals: None [facility] 6 Click - Daily Activities Score: 21 [...] Injury Intervention: Prevent Skin Injury Flowsheets (Taken 06/30/20250) Body Position: turned Problem: Adult Inpatient Plan [...] Comfort Flowsheets (Taken 06/30/2025 023 by Denae Lowe, RN) Pain Management Interventions: [...] Enhancement: awakenings minimized Taken 06/29/20251737 by Kassandra Handy, key account director Review/Management: medications reviewed * Progress Notes - [...] 06/30 at 1200 Pharmacy will continue to followCandy PharmD 06/29/2025 7:04 PM * Care Plan [...] Flowsheets (Taken 06/29/2025 152 by Tenisha Amador, TEIRA) Infection Prevention: environmental surveillance performed Goal: Optimal Comfort and Wellbeing Outcome: Ongoing, Progressing Intervention: Monitor Pain and Promote Comfort Flowsheets (Taken 06/29/2025 152 by Tenisha Amador RN) Pain Management Interventions: breathing exercises Intervention: Provide Person-Centered Care Flowsheets (Taken 06/29/2025 152 by Tenisha Amador, RN) Trust Relationship/Rapport: care [...] Nutrition Interventions: supplemental drinks provided Taken 06/29/2025 152 by Tenisha Amador RN Oral Nutrition Promotion: social interaction promoted Problem: Infection Goal: Absence of Infection Signs and Symptoms Outcome: Ongoing, Progressing Intervention: Prevent or Manage Infection Flowsheets Taken 06/29/2025 1738 Infection Management: aseptic technique maintained Fever Reduction/Comfort [...] Intervention: Promote Injury-Free Environment Flowsheets (Taken 06/29/2025 1523 by Tenisha Amador RN) Safety Promotion/Fall Prevention: activity supervised * Consults - Lillian Martin - 06/29/2025 10:25 AM EDTAssociated Order(s): IP CONSULT TO NUTRITION SERVICES Adult Nutrition Evaluation Note Scout Lowe 70 y.o. male CSN: [id number] Room/Bed 205/205 Nutrition evaluation type: assessment Reason [...] Supplemental oxygen O2 Delivery Method: Nasal cannula [place] Coma Scale Score: 15 GI Symptoms: Cramping [...] 34.69 Weight Evaluation: Obese-Class 1 (BMI 30-34.9) [place] Body Weight (kg): 72.7 Percent [place] Body Weight: 147 Wt Readings from Last [...] Regular Adult Carbohydrate Restriction: Consistent CHO 2 (4052-8314 Duong, 80 g/meal) Fat Restriction: Low fat Modified Calorie/ Protein: High calorie, high protein Diet Experience and Nutrition History: Diet Education Provided: Will monitor Pertinent home medications: Spiritism needs: Nutrition Focused Physical Exam: Unable to [...] Cancer (CMS/HCC) january 26, 2025 Cirrhosis (CMS/HCC) 2022 History of methicillin resistant Staphylococcus aureus 2011 [...] pressor support, who presented who presents to [facility] on on 06/28/2025 with chief complaint [...] since 05/29/25 Location Start Date End Date [facility]) 06/01/25 06/02/25 Allergies: Patient has no known [...] Procedure Component Value Units Date/Time Urine Culture [id number] Collected: 06/29/25 0200 Order Status: Sent Specimen: Urine, Clean Catch Updated: 06/29/25 0401 Blood Culture (Aerobic/Anaerobet Set) [id number] Collected: 06/28/252138 Order Status: Completed Specimen: Blood from Arm, Right Updated: 06/29/25 0009 Culture Culture in lab Blood Culture (Aerobic/Anaerobet Set) [id number] Collected: 06/28/252138 Order Status: Completed Specimen: Blood [...] pressor support, who presented who presents to [facility] on on 06/28/2025 with chief complaint [...] 750 mg, Oral, 4 times daily PRN umsyspnvuzot-azye-vyruqymj-folic acid (Centrum) chewable tablet 1 tablet, Daily [...] Center 07/02/2025 9:10 AM Patricia Strauss APRN [facility] 07/22/2025 7:[address] [facility] 07/22/2025 8:45 AM Dyllan Paul MD [facility] Hom[facility] Gutierrez APRN, DNP [1] Past [...] MD Consult ordered by: Kj Santos MD [facility] Urology Consult Note 06/29/25 Service Requesting [...] 750 mg, Oral, 4 times daily PRN jeiuxorjvpli-xssj-duywdglk-folic acid (Centrum) chewable tablet 1 tablet, Daily [...] days Lab Units 06/29/25 0200 COLOR UA Kathleen SPEC GRAV U 1.030 PH UA 5.5 PROTEIN UR mg/dL Trace* GLUCOSE UA mg/dL Negative KETONES UA mg/dL Trace* LEUKOCYTES UA Small* NITRITE UA Negative Results from last 7 days Lab Units 06/29/25 0200 COLOR UA Kathleen SPEC GRAV U 1.030 PH UA 5.5 [...] Total DLP (Dose-Length Product): 2949.46 mGy.cm (accession [id number]), 2949.46 mGy.cm (accession [id number]). Please note: The reported value represents the [...] fluid Eugene Ruggiero MD Urology PGY-3 Pager: [phone] - I addended plan after rounding with attending Dr. Hilario- ARTI Hansen MD Department of Urology, PGY-1 Pager: [phone] [1] Past Medical History: Diagnosis Date Cancer [...] Intervention: Optimize Skin Protection Flowsheets (Taken 06/29/2025 152) Activity Management: activity adjusted per tolerance Intervention: Promote and Optimize Oral Intake Flowsheets (Taken 06/29/2025 1523) Oral Nutrition Promotion: social interaction promoted * [...] ED Medication Summary: ED Medication Administration from 06/28/2025 2112 to 06/29/2025 0519 Date/Time Order Dose Route [...] at 12.3 [BN] 2350 CMP(!) LALITA with Medical Associate 1.49 (already getting IVF repletion). Sodium 131, AST 67, Bili 2.8 [BN] 2351 C-Reactive protein(!) 63.6, similar but slightly higher compared to last draw 6 days prior [BN] 2351 POCT venous blood gas gem(!) Slight lactate elevation at 2.5, alkalosis [BN] Leonor Jun 29, 2025 0118 Lymphocytes %: 37 [...] w/u notable for: WBC 24k, LALITA with Medical Associate 1.49, Na 131, CRP 63.6, UA with [...] malaise. 100.8 at home. Tylenol 325mg given dining room captain 98.5 in triage, pt 92% on room, pt d/c around 96/97% per . Tachy at 112 BG documented in this encounter Plan of Treatment Upcoming Encounters Date Type Department Care Team (Latest Contact Info) Description 08/22/2025 9:00 AM EDT Office Visit [facility] Nephrology, Bone & Mineral Metabolism [address] [facility], [address] [place] [address] Kathia Watkins MD [address] [facility] [address] [place] [address] 08/28/2025 7:30 AM EDT Hospital Encounter [facility] [address] [place] [address] Dyllan Paul MD [address] [phone] 08/28/2025 7:30 AM EDT Anesthesia Event [facility] [address] [place] [address] Paige Starkey, ENROLLMENT COUNSELOR [address] [place] [phone] 08/28/2025 7:30 AM EDT - 08/28/2025 9:15 AM EDT Surgery [facility] [address] [place] [phone] Dyllan Paul MD [address] [address] URETEROSCOPY, WITH LASER LITHOTRIPSY [[id number] (CPT )] 09/03/2025 9:20 AM EDT Office Visit [facility] [address] [place] [address] Richi Awad MD [address] [place] [address] Scheduled Procedures Name Priority Associated Diagnoses Date/Ti [...] 07/03/2025 6:12 PM EDT Right ureteral stone LA OPEN BLADDER,REMV CALCULUS 07/03/2025 5:10 PM EDT Right ureteral stone Special Needs Cmax LA CYSTOSCOPY,INSERT URETERAL STENT 07/03/2025 5:10 PM EDT [...] CBC W/O Differential (07/04/2025 5:26 AM EDT) [facility] WBC Count 10.13 3.70 - 10.30 10*3/uL LAB HEMATOLOGY METHOD 07/04/2025 5:48 AM EDT [facility] RBC Count 3.46(L) 4.60 - 6.10 10*6/uL LAB HEMATOLOGY METHOD 07/04/2025 5:48 AM EDT [facility] HGB 11.3(L) 13.7 - 17.5 g/dL LAB HEMATOLOGY METHOD 07/04/2025 5:48 AM EDT [facility] HCT 33.0(L) 40.0 - 51.0 % LAB HEMATOLOGY METHOD 07/04/2025 5:48 AM EDT [facility] Platelet Count 114(L) 155 - 369 10*3/uL LAB HEMATOLOGY METHOD 07/04/2025 5:48 AM EDT [facility] MCV 95 79 - 98 fL LAB HEMATOLOGY METHOD 07/04/2025 5:48 AM EDT [facility] MCH 32.7(H) 26.0 - 32.0 pg LAB HEMATOLOGY METHOD 07/04/2025 5:48 AM EDT [facility] MCHC 34.2 30.7 - 35.5 g/dL LAB HEMATOLOGY METHOD 07/04/2025 5:48 AM EDT [facility] RDW 15.7(H) 11.5 - 14.5 % LAB HEMATOLOGY METHOD 07/04/2025 5:48 AM EDT [facility] MPV 11.0 8.8 - 12.5 fL LAB HEMATOLOGY METHOD 07/04/2025 5:48 AM EDT [facility] nRBC 0.0 <=0.0 per 100 WBCs LAB HEMATOLOGY METHOD 07/04/2025 5:48 AM EDT [facility] Blood Venous blood specimen / Unknown Venipuncture / Unknown 07/04/2025 5:26 AM EDT 07/04/2025 5:37 AM EDT us Quentin Anderson MD LAB BLOOD ORDERABLES Final Result [facility] [address] [place] [address] * (ABNORMAL) Comprehensive Metabolic Panel, Plasma (07/04/2025 5:26 AM EDT) Glucose, Plasma 147(H) 74 - 99 mg/dL 07/04/2025 6:07 AM EDT [facility] BUN, Plasma 41(H) 8 - 23 mg/dL 07/04/2025 6:07 AM EDT [facility] Creatinine, Plasma 1.83(H) 0.70 - 1.20 mg/dL 07/04/2025 6:07 AM EDT [facility] BUN/Creatinine Ratio 22 07/04/2025 6:07 AM EDT [facility] Sodium, Plasma 127(L) 136 - 145 mmol/L 07/04/2025 6:07 AM EDT [facility] Potassium, Plasma 4.3 3.6 - 4.9 mmol/L 07/04/2025 6:07 AM EDT [facility] Chloride, Plasma 98 97 - 107 mmol/L 07/04/2025 6:07 AM EDT [facility] CO2, Plasma 18(L) 22 - 29 mmol/L 07/04/2025 6:07 AM EDT [facility] Anion Gap 11 6 - 16 mmol/L 07/04/2025 6:07 AM EDT [facility] Total Calcium, Plasma 7.6(L) 8.9 - 10.2 mg/dL 07/04/2025 6:07 AM EDT [facility] Total Protein 4.8(L) 6.3 - 7.9 g/dL 07/04/2025 6:07 AM EDT [facility] Albumin, Plasma 2.3(L) 3.5 - 5.2 g/dL 07/04/2025 6:07 AM EDT [facility] AST, Plasma 41 10 - 50 U/L 07/04/2025 6:07 AM EDT [facility] ALT, Plasma 24 10 - 50 U/L 07/04/2025 6:07 AM EDT [facility] Alkaline Phosphatase, Plasma 133(H) 40 - 115 U/L 07/04/2025 6:07 AM EDT [facility] Total Bilirubin, Plasma 1.2(H) 0.2 - 1.1 mg/dL 07/04/2025 6:07 AM EDT [facility] eGFRcr 39.2 mL/min/1.7 3m*2 07/04/2025 6:07 AM EDT [facility] Comment:Reported eGFRcr in m L/min/1.73m2 is based the CKD-EPI 2020 equation that does not use a race coefficient. Blood Venous blood specimen / Unknown Venipuncture / Unknown 07/04/2025 5:26 AM EDT 07/04/2025 5:35 AM EDT us Quentin Anderson MD LAB BLOOD ORDERABLES Final Result [facility] [address] [place] [address] * [place] Less than 1 Hour Intraoperative (07/03/2025 6:15 PM EDT) Narrative IMAGING - 07/03/2025 6:17 PM EDT Images were obtained for surgical purposes. See Dyllan Paul's surgical note in the patient's chart for the findings. Dyllan Paul MD IMG FLUOROSCOPY PROCEDURES Fi nal Result Performing Organization Address City/[facility]/ZIP Co de Phone Number IMAGING * Calculi (Kidney Stone) Analysis (07/03/2025 6:12 PM EDT) [facility] Mass 807 mg 07/08/2025 6:16 PM EDT [facility] ([facility]) Calculi Description See Note 07/08/2025 6:16 PM EDT [facility] ([facility]) Calculi Composition See Note 07/08/2025 6:16 PM EDT [facility] ([facility]) Calculus Urinary bladder structure / Unknown 07/03/2025 6:12 PM EDT 07/03/2025 6:35 PM EDT Comment:Pre-op diagnosis: Right ureteral stone [N20.1] Narrative [facility] ([facility]) - 07/08/2025 6:16 PM EDT Specimen consists [...] composition determined by FTIR analysis. Performed By: [facility] [address] [place] [address] Tipple Greaser: Sotero Banuelos MD, PhD CLIA Number: [id number] Dyllan Paul MD LAB REF LAB BLOOD AND FLUID O RD Final Result Performing Organization Address [facility]/ZIP Co de Phone Number [facility] ([facility]) [address] [place] [address] * (ABNORMAL) Prothrombin Time/INR (07/03/2025 6:21 AM EDT) Prothrombin Time 21.7(H) 12.0 - 14.3 sec LAB COAGULATION METHOD 07/03/2025 6:47 AM EDT [facility] INR 1.9(H) 0.9 - 1.1 LAB COAGULATION METHOD 07/03/2025 6:47 AM EDT [facility] Blood Venous blood specimen / Unknown Venipuncture / Unknown 07/03/2025 6:21 AM EDT 07/03/2025 6:30 AM EDT Narrative [facility] - 07/03/2025 6:47 AM EDT OPTIMAL INR RANGES FOR PATIENT ON ORAL ANTICOAGULANT THERAPY Prevention of venous thromboembolism INR 2.0 to 3.0 In patients with heart disease: Atrial fibrillation INR 2.0 to 3.0 Valvular heart disease INR 2.0 to 3.0 Tissue heart valves INR 2.0 to 3.0 Mechanical prosthetic valves INR 2.5 to 3.5 Prevention of recurrent WI INR 2.5 to 3.5 us Quentin Anderson MD LAB BLOOD ORDERABLES Final Result [facility] [address] [place] [address] * (ABNORMAL) CBC W/O Differential (07/03/2025 6:21 AM EDT) WBC Count 10.55(H) 3.70 - 10.30 10*3/uL LAB HEMATOLOGY METHOD 07/03/2025 6:40 AM EDT [facility] RBC Count 3.41(L) 4.60 - 6.10 10*6/uL LAB HEMATOLOGY METHOD 07/03/2025 6:40 AM EDT [facility] HGB 11.3(L) 13.7 - 17.5 g/dL LAB HEMATOLOGY METHOD 07/03/2025 6:40 AM EDT [facility] HCT 32.2(L) 40.0 - 51.0 % LAB HEMATOLOGY METHOD 07/03/2025 6:40 AM EDT [facility] Platelet Count 110(L) 155 - 369 10*3/uL LAB HEMATOLOGY METHOD 07/03/2025 6:40 AM EDT [facility] MCV 94 79 - 98 fL LAB HEMATOLOGY METHOD 07/03/2025 6:40 AM EDT [facility] MCH 33.1(H) 26.0 - 32.0 pg LAB HEMATOLOGY METHOD 07/03/2025 6:40 AM EDT [facility] MCHC 35.1 30.7 - 35.5 g/dL LAB HEMATOLOGY METHOD 07/03/2025 6:40 AM EDT [facility] RDW 15.9(H) 11.5 - 14.5 % LAB HEMATOLOGY METHOD 07/03/2025 6:40 AM EDT [facility] MPV 11.0 8.8 - 12.5 fL LAB HEMATOLOGY METHOD 07/03/2025 6:40 AM EDT [facility] nRBC 0.0 <=0.0 per 100 WBCs LAB HEMATOLOGY METHOD 07/03/2025 6:40 AM EDT [facility] Blood Venous blood specimen / Unknown Venipuncture / Unknown 07/03/2025 6:21 AM EDT 07/03/2025 6:30 AM EDT us Quentin Anderson MD LAB BLOOD ORDERABLES Final Result [facility] [address] [place] [address] * (ABNORMAL) Comprehensive Metabolic Panel, Plasma (07/03/2025 6:21 AM EDT) Glucose, Plasma 90 74 - 99 mg/dL 07/03/2025 7:00 AM EDT [facility] BUN, Plasma 36(H) 8 - 23 mg/dL 07/03/2025 7:00 AM EDT [facility] Creatinine, Plasma 1.54(H) 0.70 - 1.20 mg/dL 07/03/2025 7:00 AM EDT [facility] BUN/Creatinine Ratio 23 07/03/2025 7:00 AM EDT [facility] Sodium, Plasma 128(L) 136 - 145 mmol/L 07/03/2025 7:00 AM EDT [facility] Potassium, Plasma 3.8 3.6 - 4.9 mmol/L 07/03/2025 7:00 AM EDT [facility] Chloride, Plasma 98 97 - 107 mmol/L 07/03/2025 7:00 AM EDT [facility] CO2, Plasma 19(L) 22 - 29 mmol/L 07/03/2025 7:00 AM EDT [facility] Anion Gap 11 6 - 16 mmol/L 07/03/2025 7:00 AM EDT [facility] Total Calcium, Plasma 7.5(L) 8.9 - 10.2 mg/dL 07/03/2025 7:00 AM EDT [facility] Total Protein 4.8(L) 6.3 - 7.9 g/dL 07/03/2025 7:00 AM EDT [facility] Albumin, Plasma 2.2(L) 3.5 - 5.2 g/dL 07/03/2025 7:00 AM EDT [facility] AST, Plasma 42 10 - 50 U/L 07/03/2025 7:00 AM EDT [facility] Comment:Hemolyzed, result ma y be falsely increased. ALT, Plasma 24 10 - 50 U/L 07/03/2025 7:00 AM EDT [facility] Alkaline Phosphatase, Plasma 128(H) 40 - 115 U/L 07/03/2025 7:00 AM EDT [facility] Total Bilirubin, Plasma 1.4(H) 0.2 - 1.1 mg/dL 07/03/2025 7:00 AM EDT [facility] eGFRcr 48.2 mL/min/1.7 3m*2 07/03/2025 7:00 AM EDT [facility] Comment:Reported eGFRcr in m L/min/1.73m2 is based the CKD-EPI 2020 equation that does not use a race coefficient. Blood Venous blood specimen / Unknown Venipuncture / Unknown 07/03/2025 6:21 AM EDT 07/03/2025 6:30 AM EDT us Quentin Anderson MD LAB BLOOD ORDERABLES Final Result [facility] [address] [place] [address] * (ABNORMAL) Comprehensive Metabolic Panel, Plasma (07/02/2025 5:01 AM EDT) Glucose, Plasma 93 74 - 99 mg/dL 07/02/2025 6:19 AM EDT [facility] BUN, Plasma 31(H) 8 - 23 mg/dL 07/02/2025 6:19 AM EDT [facility] Creatinine, Plasma 1.34(H) 0.70 - 1.20 mg/dL 07/02/2025 6:19 AM EDT [facility] BUN/Creatinine Ratio 23 07/02/2025 6:19 AM EDT [facility] Sodium, Plasma 129(L) 136 - 145 mmol/L 07/02/2025 6:19 AM EDT [facility] Potassium, Plasma 3.7 3.6 - 4.9 mmol/L 07/02/2025 6:19 AM EDT [facility] Chloride, Plasma 102 97 - 107 mmol/L 07/02/2025 6:19 AM EDT [facility] CO2, Plasma 20(L) 22 - 29 mmol/L 07/02/2025 6:19 AM EDT [facility] Anion Gap 7 6 - 16 mmol/L 07/02/2025 6:19 AM EDT [facility] Total Calcium, Plasma 7.1(L) 8.9 - 10.2 mg/dL 07/02/2025 6:19 AM EDT [facility] Total Protein 4.7(L) 6.3 - 7.9 g/dL 07/02/2025 6:19 AM EDT [facility] Albumin, Plasma 2.2(L) 3.5 - 5.2 g/dL 07/02/2025 6:19 AM EDT [facility] AST, Plasma 37 10 - 50 U/L 07/02/2025 6:19 AM EDT [facility] ALT, Plasma 26 10 - 50 U/L 07/02/2025 6:19 AM EDT [facility] Alkaline Phosphatase, Plasma 114 40 - 115 U/L 07/02/2025 6:19 AM EDT [facility] Total Bilirubin, Plasma 1.7(H) 0.2 - 1.1 mg/dL 07/02/2025 6:19 AM EDT [facility] eGFRcr 57.0 mL/min/1.7 3m*2 07/02/2025 6:19 AM EDT [facility] Comment:Reported eGFRcr in m L/min/1.73m2 is based the CKD-EPI 2020 equation that does not use a race coefficient. Blood Venous blood specimen / Unknown Venipuncture / Unknown 07/02/2025 5:01 AM EDT 07/02/2025 5:12 AM EDT us Quentin Anderson MD LAB BLOOD ORDERABLES Final Result [facility] [address] [place] [address] * (ABNORMAL) CBC and Differential (07/01/2025 4:59 AM EDT) WBC Count 14.93(H) 3.70 - 10.30 10*3/uL LAB HEMATOLOGY METHOD 07/01/2025 5:17 AM EDT [facility] RBC Count 3.42(L) 4.60 - 6.10 10*6/uL LAB HEMATOLOGY METHOD 07/01/2025 5:17 AM EDT [facility] HGB 11.1(L) 13.7 - 17.5 g/dL LAB HEMATOLOGY METHOD 07/01/2025 5:17 AM EDT [facility] HCT 32.6(L) 40.0 - 51.0 % LAB HEMATOLOGY METHOD 07/01/2025 5:17 AM EDT [facility] Platelet Count 112(L) 155 - 369 10*3/uL LAB HEMATOLOGY METHOD 07/01/2025 5:17 AM EDT [facility] MCV 95 79 - 98 fL LAB HEMATOLOGY METHOD 07/01/2025 5:17 AM EDT [facility] MCH 32.5(H) 26.0 - 32.0 pg LAB HEMATOLOGY METHOD 07/01/2025 5:17 AM EDT [facility] MCHC 34.0 30.7 - 35.5 g/dL LAB HEMATOLOGY METHOD 07/01/2025 5:17 AM EDT [facility] RDW 15.8(H) 11.5 - 14.5 % LAB HEMATOLOGY METHOD 07/01/2025 5:17 AM EDT [facility] MPV 11.2 8.8 - 12.5 fL LAB HEMATOLOGY METHOD 07/01/2025 5:17 AM EDT [facility] nRBC 0.1(H) <=0.0 per 100 WBCs LAB HEMATOLOGY METHOD 07/01/2025 5:17 AM EDT [facility] Differential Type Automated LAB HEMATOLOGY METHOD 07/01/2025 5:17 AM EDT [facility] Neutrophils % 54 % LAB HEMATOLOGY METHOD 07/01/2025 5:17 AM EDT [facility] Lymphocytes % 30 % LAB HEMATOLOGY METHOD 07/01/2025 5:17 AM EDT [facility] Monocytes % 9 % LAB HEMATOLOGY METHOD 07/01/2025 5:17 AM EDT [facility] Eosinophils % 5 % LAB HEMATOLOGY METHOD 07/01/2025 5:17 AM EDT [facility] Basophils % 1 % LAB HEMATOLOGY METHOD 07/01/2025 5:17 AM EDT [facility] Immature Granulocytes % 1 % LAB HEMATOLOGY METHOD 07/01/2025 5:17 AM EDT [facility] Neutrophils Absolute 8.14(H) 1.60 - 6.10 10*3/uL LAB HEMATOLOGY METHOD 07/01/2025 5:17 AM EDT [facility] Lymphocytes Absolute 4.47(H) 1.20 - 3.90 10*3/uL LAB HEMATOLOGY METHOD 07/01/2025 5:17 AM EDT [facility] Monocytes Absolute 1.40(H) 0.30 - 0.90 10*3/uL LAB HEMATOLOGY METHOD 07/01/2025 5:17 AM EDT [facility] Eosinophils Absolute 0.74(H) 0.00 - 0.50 10*3/uL LAB HEMATOLOGY METHOD 07/01/2025 5:17 AM EDT [facility] Basophils Absolute 0.08 0.00 - 0.10 10*3/uL LAB HEMATOLOGY METHOD 07/01/2025 5:17 AM EDT [facility] Immature Granulocytes Absolute 0.10(H) 0.00 - 0.06 10*3/uL LAB HEMATOLOGY METHOD 07/01/2025 5:17 AM EDT [facility] Blood Venous blood specimen / Unknown Venipuncture / Unknown 07/01/2025 4:59 AM EDT 07/01/2025 5:06 AM EDT Narrative [facility] - 07/01/2025 5:17 AM EDT Therapeutic decision making should be based on absolute values, rather than percentages. Lizzie Biggs MD LAB BLOOD ORDERABLES Fi nal Result [facility] [address] [place] [address] * (ABNORMAL) Comprehensive Metabolic Panel, Plasma (07/01/2025 4:59 AM EDT) Glucose, Plasma 106(H) 74 - 99 mg/dL 07/01/2025 5:35 AM EDT [facility] BUN, Plasma 28(H) 8 - 23 mg/dL 07/01/2025 5:35 AM EDT [facility] Creatinine, Plasma 1.31(H) 0.70 - 1.20 mg/dL 07/01/2025 5:35 AM EDT [facility] BUN/Creatinine Ratio 21 07/01/2025 5:35 AM EDT [facility] Sodium, Plasma 128(L) 136 - 145 mmol/L 07/01/2025 5:35 AM EDT [facility] Potassium, Plasma 4.2 3.6 - 4.9 mmol/L 07/01/2025 5:35 AM EDT [facility] Chloride, Plasma 98 97 - 107 mmol/L 07/01/2025 5:35 AM EDT [facility] CO2, Plasma 20(L) 22 - 29 mmol/L 07/01/2025 5:35 AM EDT [facility] Anion Gap 10 6 - 16 mmol/L 07/01/2025 5:35 AM EDT [facility] Total Calcium, Plasma 7.5(L) 8.9 - 10.2 mg/dL 07/01/2025 5:35 AM EDT [facility] Total Protein 4.8(L) 6.3 - 7.9 g/dL 07/01/2025 5:35 AM EDT [facility] Albumin, Plasma 2.3(L) 3.5 - 5.2 g/dL 07/01/2025 5:35 AM EDT [facility] AST, Plasma 38 10 - 50 U/L 07/01/2025 5:35 AM EDT [facility] Comment:Hemolyzed, result ma y be falsely increased. ALT, Plasma 31 10 - 50 U/L 07/01/2025 5:35 AM EDT [facility] Alkaline Phosphatase, Plasma 124(H) 40 - 115 U/L 07/01/2025 5:35 AM EDT [facility] Total Bilirubin, Plasma 2.1(H) 0.2 - 1.1 mg/dL 07/01/2025 5:35 AM EDT [facility] eGFRcr 58.6 mL/min/1.7 3m*2 07/01/2025 5:35 AM EDT [facility] Comment:Reported eGFRcr in m L/min/1.73m2 is based the CKD-EPI 2020 equation that does not use a race coefficient. Blood Venous blood specimen / Unknown Venipuncture / Unknown 07/01/2025 4:59 AM EDT 07/01/2025 5:06 AM EDT us Lizzie Biggs MD LAB BLOOD ORDERABLES Fi nal Result [facility] [address] [place] [address] * (ABNORMAL) Magnesium, Plasma (07/01/2025 4:59 AM EDT) Pathologist [facility] Magnesium, Plasma 2.7(H) 1.9 - 2.4 mg/dL 07/01/2025 5:35 AM EDT [facility] Blood Venous blood specimen / Unknown Venipuncture / Unknown 07/01/2025 4:59 AM EDT 07/01/2025 5:06 AM EDT Lizzie Biggs MD LAB BLOOD ORDERABLES Fi nal Result Performing Organization Address City/[facility]/ZIP Co de Phone Number [facility] [address] [place] [address] * Phosphorus, Plasma (07/01/2025 4:59 AM EDT) [facility] Phosphorus, Plasma 3.0 2.5 - 4.5 mg/dL 07/01/2025 5:35 AM EDT [facility] Blood Venous blood specimen / Unknown Venipuncture / Unknown 07/01/2025 4:59 AM EDT 07/01/2025 5:06 AM EDT Lizzie Biggs MD LAB BLOOD ORDERABLES Fi nal Result Performing Organization Address [facility]/[place] [address] * Urinalysis Microscopic Examination (06/30/2025 6:20 PM EDT) Urine Urine specimen obtained by clean catch procedure / Unknown Non-blood Collection / Unknown 06/30/2025 6:20 PM EDT 06/30/2025 6:52 PM EDT Lizzie Biggs MD LAB URINE ORDERABLES Fi nal Result Performing Organization Address City/[facility]/[place] [address] * (ABNORMAL) Urinalysis with reflex microscopic (Culture NOT Included) (06/30/2025 6:20 PM EDT) Color, Urine Dark Yellow LAB URINALYSIS - AUTOMATED METHOD 06/30/2025 7:28 PM EDT [facility] Clarity, Urine Cloudy LAB URINALYSIS - AUTOMATED METHOD 06/30/2025 7:28 PM EDT [facility] Spec Rillito, Urine >1.030(H) 1.005 - 1.030 LAB URINALYSIS - AUTOMATED METHOD 06/30/2025 7:28 PM EDT [facility] pH, Urine 6.0 5.0 - 8.0 LAB URINALYSIS - AUTOMATED METHOD 06/30/2025 7:28 PM EDT [facility] Protein, Urine 30(A) Negative mg/dL LAB URINALYSIS - AUTOMATED METHOD 06/30/2025 7:28 PM EDT [facility] Glucose, Urine Negative Negative mg/dL LAB URINALYSIS - AUTOMATED METHOD 06/30/2025 7:28 PM EDT [facility] Ketones, Urine Trace(A) Negative mg/dL LAB URINALYSIS - AUTOMATED METHOD 06/30/2025 7:28 PM EDT [facility] Blood, Urine Moderate(A) Negative LAB URINALYSIS - AUTOMATED METHOD 06/30/2025 7:28 PM EDT [facility] Bilirubin, Urine Small(A) Negative LAB URINALYSIS - AUTOMATED METHOD 06/30/2025 7:28 PM EDT [facility] Urobilinogen, Urine 1.0 0.2 to 1.0 mg/dL LAB URINALYSIS - AUTOMATED METHOD 06/30/2025 7:28 PM EDT [facility] Leukocytes, Urine Moderate(A) Negative LAB URINALYSIS - AUTOMATED METHOD 06/30/2025 7:28 PM EDT [facility] Nitrite, Urine Negative Negative LAB URINALYSIS - AUTOMATED METHOD 06/30/2025 7:28 PM EDT [facility] RBC, Urine >50(A) 0 to 3 /HPF LAB URINALYSIS - AUTOMATED METHOD 06/30/2025 7:28 PM EDT [facility] WBC, Urine 21 - 50(A) 0 to 5 /HPF LAB URINALYSIS - AUTOMATED METHOD 06/30/2025 7:28 PM EDT [facility] Squamous Epithelial Cells 0 - 2 0 to 5 /HPF LAB URINALYSIS - AUTOMATED METHOD 06/30/2025 7:28 PM EDT [facility] Hyaline Casts 6 - 10(A) 0 to 5 /LPF LAB URINALYSIS - AUTOMATED METHOD 06/30/2025 7:28 PM EDT [facility] Bacteria, Urine Present Negative LAB URINALYSIS - AUTOMATED METHOD 06/30/2025 7:28 PM EDT [facility] Renal Tubular Cells Present Absent 06/30/2025 7:28 PM EDT [facility] Yeast (Budding and/or Pseudohyphae) Present(A) Absent 06/30/2025 7:28 PM EDT [facility] Urine Urine specimen obtained by clean catch procedure / Unknown Non-blood Collection / Unknown 06/30/2025 6:20 PM EDT 06/30/2025 6:52 PM EDT Narrative [facility] - 06/30/2025 7:28 PM EDT Performed by manual method Lizzie Biggs MD LAB URINE ORDERABLES Fi nal Result Performing Organization Address City/[facility]/ZIP Co de Phone Number [facility] [address] [place] [address] * Lactate, venous (06/30/2025 3:11 PM EDT) Lactate, Venous, Whole Blood 1.4 0.5 - 2.2 mmol/L LAB HEMATOLOGY METHOD 06/30/2025 3:25 PM EDT [facility] Blood Venous blood specimen / Unknown Venipuncture / Unknown 06/30/2025 3:11 PM EDT 06/30/2025 3:23 PM EDT Lizzie Biggs MD LAB BLOOD ORDERABLES Fi nal Result Performing Organization Address City/[facility]/ZIP Co de Phone Number [facility] [address] [place] [address] * Phosphorus, Plasma (06/30/2025 3:11 PM EDT) Phosphorus, Plasma 3.0 2.5 - 4.5 mg/dL 06/30/2025 4:40 PM EDT [facility] Blood Venous blood specimen / Unknown Venipuncture / Unknown 06/30/2025 3:11 PM EDT 06/30/2025 3:34 PM EDT Lizzie Biggs MD LAB BLOOD ORDERABLES Fi nal Result [facility] [address] [place] [address] * (ABNORMAL) CBC and Differential (06/30/2025 3:11 PM EDT) WBC Count 15.42(H) 3.70 - 10.30 10*3/uL LAB HEMATOLOGY METHOD 06/30/2025 7:40 PM EDT [facility] RBC Count 2.92(L) 4.60 - 6.10 10*6/uL LAB HEMATOLOGY METHOD 06/30/2025 7:40 PM EDT [facility] HGB 9.6(L) 13.7 - 17.5 g/dL LAB HEMATOLOGY METHOD 06/30/2025 7:40 PM EDT [facility] HCT 28.0(L) 40.0 - 51.0 % LAB HEMATOLOGY METHOD 06/30/2025 7:40 PM EDT [facility] Platelet Count 100(L) 155 - 369 10*3/uL LAB HEMATOLOGY METHOD 06/30/2025 7:40 PM EDT [facility] MCV 96 79 - 98 fL LAB HEMATOLOGY METHOD 06/30/2025 7:40 PM EDT [facility] MCH 32.9(H) 26.0 - 32.0 pg LAB HEMATOLOGY METHOD 06/30/2025 7:40 PM EDT [facility] MCHC 34.3 30.7 - 35.5 g/dL LAB HEMATOLOGY METHOD 06/30/2025 7:40 PM EDT [facility] RDW 15.9(H) 11.5 - 14.5 % LAB HEMATOLOGY METHOD 06/30/2025 7:40 PM EDT [facility] MPV 12.0 8.8 - 12.5 fL LAB HEMATOLOGY METHOD 06/30/2025 7:40 PM EDT [facility] nRBC 0.5(H) <=0.0 per 100 WBCs LAB HEMATOLOGY METHOD 06/30/2025 7:40 PM EDT [facility] Differential Type Automated LAB HEMATOLOGY METHOD 06/30/2025 7:40 PM EDT [facility] Neutrophils % 51 % LAB HEMATOLOGY METHOD 06/30/2025 7:40 PM EDT [facility] Lymphocytes % 34 % LAB HEMATOLOGY METHOD 06/30/2025 7:40 PM EDT [facility] Monocytes % 9 % LAB HEMATOLOGY METHOD 06/30/2025 7:40 PM EDT [facility] Eosinophils % 4 % LAB HEMATOLOGY METHOD 06/30/2025 7:40 PM EDT [facility] Basophils % 1 % LAB HEMATOLOGY METHOD 06/30/2025 7:40 PM EDT [facility] Immature Granulocytes % 1 % LAB HEMATOLOGY METHOD 06/30/2025 7:40 PM EDT [facility] Neutrophils Absolute 8.05(H) 1.60 - 6.10 10*3/uL LAB HEMATOLOGY METHOD 06/30/2025 7:40 PM EDT [facility] Lymphocytes Absolute 5.22(H) 1.20 - 3.90 10*3/uL LAB HEMATOLOGY METHOD 06/30/2025 7:40 PM EDT [facility] Monocytes Absolute 1.32(H) 0.30 - 0.90 10*3/uL LAB HEMATOLOGY METHOD 06/30/2025 7:40 PM EDT [facility] Eosinophils Absolute 0.68(H) 0.00 - 0.50 10*3/uL LAB HEMATOLOGY METHOD 06/30/2025 7:40 PM EDT [facility] Basophils Absolute 0.07 0.00 - 0.10 10*3/uL LAB HEMATOLOGY METHOD 06/30/2025 7:40 PM EDT [facility] Immature Granulocytes Absolute 0.08(H) 0.00 - 0.06 10*3/uL LAB HEMATOLOGY METHOD 06/30/2025 7:40 PM EDT [facility] Blood Venous blood specimen / Unknown Venipuncture / Unknown 06/30/2025 3:11 PM EDT 06/30/2025 3:37 PM EDT [facility] - 06/30/2025 7:40 PM EDT Therapeutic decision making should be based on absolute values, rather than percentages. Lizzie Biggs MD LAB BLOOD ORDERABLES Fi nal Result [facility] [address] [place] [address] * (ABNORMAL) Basic Metabolic Panel, Plasma (06/30/2025 3:11 PM EDT) Glucose, Plasma 101(H) 74 - 99 mg/dL 06/30/2025 4:40 PM EDT [facility] BUN, Plasma 25(H) 8 - 23 mg/dL 06/30/2025 4:40 PM EDT [facility] Creatinine, Plasma 1.08 0.70 - 1.20 mg/dL 06/30/2025 4:40 PM EDT [facility] BUN/Creatinine Ratio 23 06/30/2025 4:40 PM EDT [facility] Sodium, Plasma 130(L) 136 - 145 mmol/L 06/30/2025 4:40 PM EDT [facility] Potassium, Plasma 3.2(L) 3.6 - 4.9 mmol/L 06/30/2025 4:40 PM EDT [facility] Chloride, Plasma 111(H) 97 - 107 mmol/L 06/30/2025 4:40 PM EDT [facility] CO2, Plasma 18(L) 22 - 29 mmol/L 06/30/2025 4:40 PM EDT [facility] Anion Gap 1(L) 6 - 16 mmol/L 06/30/2025 4:40 PM EDT [facility] Total Calcium, Plasma 6.3(L) 8.9 - 10.2 mg/dL 06/30/2025 4:40 PM EDT [facility] eGFRcr 73.8 mL/min/1.7 3m*2 06/30/2025 4:40 PM EDT [facility] Comment:Reported eGFRcr in m L/min/1.73m2 is based the CKD-EPI 2020 equation that does not use a race coefficient. Blood Venous blood specimen / Unknown Venipuncture / Unknown 06/30/2025 3:11 PM EDT 06/30/2025 3:34 PM EDT Lizzie Biggs MD LAB BLOOD ORDERABLES Fi nal Result [facility] [address] [place] [address] * (ABNORMAL) Magnesium, Plasma (06/30/2025 3:11 PM EDT) Pathologist [facility] Magnesium, Plasma 1.7(L) 1.9 - 2.4 mg/dL 06/30/2025 4:40 PM EDT [facility] Blood Venous blood specimen / Unknown Venipuncture / Unknown 06/30/2025 3:11 PM EDT 06/30/2025 3:34 PM EDT Lizzie Biggs MD LAB BLOOD ORDERABLES Fi nal Result [facility] [address] [place] [address] * Vancomycin, random (06/30/2025 12:48 PM EDT) [facility] Vancomycin, Random, Plasma 13.3 ug/mL 06/30/2025 3:07 PM EDT [facility] Blood Venous blood specimen / Unknown Venipuncture / Unknown 06/30/2025 12:48 PM EDT 06/30/2025 12:58 PM EDT Jennifer Mcgrath MD LAB BLOOD ORDERABLES Final Resu lt [facility] [address] [place] [address] * (ABNORMAL) Cystatin C (06/30/2025 6:01 AM EDT) Pathologist [facility] Cystatin C 1.58(H) 0.61 - 0.95 mg/L 06/30/2025 6:40 AM EDT [facility] Blood Venous blood specimen / Unknown Venipuncture / Unknown 06/30/2025 6:01 AM EDT 06/30/2025 6:10 AM EDT us Lizzie Biggs MD LAB BLOOD ORDERABLES Fi nal Result [facility] [address] [place] [address] * (ABNORMAL) Ammonia, Plasma (06/30/2025 6:01 AM EDT) Ammonia 64(H) 11 - 51 umol/L 06/30/2025 6:38 AM EDT [facility] Comment:Improper specimen marquez ndling may falsely increase results. Blood Venous blood specimen / Unknown Venipuncture / Unknown 06/30/2025 6:01 AM EDT 06/30/2025 6:08 AM EDT us Homero Gutierrez APRN, DNP LAB BLOOD ORDERAB LES Final Result Performing Organization Address City/[facility]/ZIP Co de Phone Number [facility] [address] [place] [address] * Sedimentation Rate, Automated (06/30/2025 6:01 AM EDT) [facility] Sedimentation Rate 17 <20 mm/hr 2024 6:18 AM EDT [facility] Blood Venous blood specimen / Unknown Venipuncture / Unknown 06/30/2025 6:01 AM EDT 06/30/2025 6:11 AM EDT us Homeroheather Cadebekali ENROLLMENT COUNSELOR, DNP LAB BLOOD ORDERAB LES Final Result Performing Organization Address City/[facility]/ZIP Co de Phone Number [facility] [address] [place] [address] * Vancomycin, random (06/29/2025 6:05 PM EDT) Vancomycin, Random, Plasma 15.4 ug/mL 06/29/2025 6:42 PM EDT [facility] Blood Venous blood specimen / Unknown Venipuncture / Unknown 06/29/2025 6:05 PM EDT 06/29/2025 6:15 PM EDT us Lizzie Biggs MD LAB BLOOD ORDERABLES Fi nal Result [facility] [address] [place] [address] * US Abdomen Focused Region Liver, Pancreas, [...] Urine 182 mg/dL 06/29/2025 1:10 PM EDT [facility] Urine Urine specimen obtained by clean catch procedure / Unknown Non-blood Collection / Unknown 06/29/2025 12:10 PM EDT 06/29/2025 12:37 PM EDT us Homero Gutierrez APRN, DNP LAB URINE ORDERAB LES Final Result Performing Organization Address City/[facility]/ZIP Co de Phone Number [facility] [address] [place] [address] * Urea nitrogen, urine (06/29/2025 12:10 PM EDT) Urea Nitrogen, Urine 865 mg/dL 06/29/2025 1:10 PM EDT [facility] Urine Urine specimen obtained by clean catch procedure / Unknown Non-blood Collection / Unknown 06/29/2025 12:10 PM EDT 06/29/2025 12:37 PM EDT us Homero Gutierrez APRN, DNP LAB URINE ORDERAB LES Final Result Performing Organization Address City/[facility] Co de Phone Number [facility] [address] [place] [address] * Methicillin Resistant Staphylococcus aureus (MRSA) by PCR (06/29/2025 9:39 AM EDT) Methicillin Resistant Staphylococcus aureus (MRSA) by PCR Not Detected Not Detected 06/29/2025 12:04 PM EDT [facility] Swab Both anterior nares / Unknown Non-blood Collection / Unknown 06/29/2025 9:39 AM EDT 06/29/2025 10:18 AM EDT Narrative [facility] - 06/29/2025 12:04 PM [...] GENERAL ORDERABLES Final Result Performing Organization Address [facility] de Phone Number [facility] [address] [place] [address] * (ABNORMAL) Wound Culture and Gram Stain (06/29/2025 9:39 AM EDT) CULTURE READING WOUND Light Growth 07/02/2025 12:29 PM EDT [facility] CULTURE READING WOUND Staphylococcus epidermidis(A) 07/02/2025 12:29 PM EDT [facility] Comment: This isolate has been identified using the FDA Approved [employer] [place] System The organism value for this result has been updated. These results have been appended to the previously preliminary verified report. Edited result: Previously reported as Gram positive cocci on 07/01/2025 at 0744 EDT. Gram Stain Result Numerous Polymorphonuclear leukocytes(A) 07/02/2025 12:29 PM EDT [facility] Gram Stain Result Rare Gram negative rods(A) 07/02/2025 12:29 PM EDT [facility] Swab Skin structure / Unknown Non-blood Collection / Unknown 06/29/2025 9:39 AM EDT 06/29/2025 2:57 PM EDT us Homero Gutierrez APRN, DNP LAB MICROBIOLOGY - GENERAL ORDERABLES Final Result Performing Organization Address City/[facility] de Phone Number [facility] [address] [place] [address] * Multi Drug Resistance Test (06/29/2025 9:39 AM EDT) Culture No growth at day 1 06/30/2025 4:16 PM EDT [facility] Swab (Nares and Cari Rectal) Non-blood Collection / Unknown 06/29/2025 9:39 AM EDT 06/29/2025 10:19 AM EDT Narrative [facility] - 06/30/2025 4:16 PM EDT This test was developed and its performance characteristics determined by the [facility]. Although the media is FDA-approved, it is not FDA-approved for all specimen types submitted. The FDA has determined that such clearance or approval is not necessary. This test is used for surveillance purposes. It should not be regarded as investigational or for research. The [facility] is certified under the Clinical Laboratory Improvement Amendments of 1988 (CLIA-88) as qualified to perform high complexity clinical laboratory testing. us Homerocrow Gutierrez APRN, DNP LAB MICROBIOLOGY - GENERAL ORDERABLES Final Result Performing Organization Address City/[facility]/[place] [address] * (ABNORMAL) GGT (06/29/2025 6:52 AM EDT) GGT, Plasma 116(H) 8 - 61 U/L 06/29/2025 8:35 AM EDT [facility] Blood Venous blood specimen / Unknown Venipuncture / Unknown 06/29/2025 6:52 AM EDT 06/29/2025 6:56 AM EDT us Homero Gutierrez APRN, DNP LAB BLOOD ORDERAB LES Final Result Performing Organization Address [facility] [place] [address] * (ABNORMAL) Ionized calcium, whole blood (06/29/2025 6:52 AM EDT) Ionized Calcium, Whole Blood 4.1(L) 4.6 - 5.1 mg/dL LAB HEMATOLOGY METHOD 06/29/2025 7:12 AM EDT [facility] Blood Venous blood specimen / Unknown Venipuncture / Unknown 06/29/2025 6:52 AM EDT 06/29/2025 6:55 AM EDT Homero Gutierrez APRN, DNP LAB BLOOD ORDERAB LES Final Result Performing Organization Address City/[facility]/ZIP Co de Phone Number [facility] [address] [place] [address] * (ABNORMAL) Procalcitonin (06/29/2025 6:52 AM EDT) Procalcitonin, Plasma 2.47(H) <0.09 ng/mL 06/29/2025 7:27 AM EDT [facility] Blood Venous blood specimen / Unknown Venipuncture / Unknown 06/29/2025 6:52 AM EDT 06/29/2025 6:56 AM EDT Narrative [facility] - 06/29/2025 7:27 AM [...] predict 28 day mortality risk. Please consult [email or web address] for more information. Test performed at [facility]. Homero Gutierrez APRN, [facility] LAB BLOOD ORDERAB LES Final Result Performing Organization Address City/[facility]/ZIP Co de Phone Number [facility] [address] [place] [address] * (ABNORMAL) Cystatin C (06/29/2025 6:52 AM EDT) Cystatin C 1.5(H) 0.61 - 0.95 mg/L 06/29/2025 8:35 AM EDT [facility] Blood Venous blood specimen / Unknown Venipuncture / Unknown 06/29/2025 6:52 AM EDT 06/29/2025 6:56 AM EDT us Homero Moiz Gutierrez ENROLLMENT COUNSELOR, DNP LAB BLOOD ORDERAB LES Final Result [facility] [address] [place] [address] * (ABNORMAL) Basic metabolic panel (06/29/2025 6:52 AM EDT) Glucose, Plasma 116(H) 74 - 99 mg/dL 06/29/2025 7:27 AM EDT [facility] BUN, Plasma 24(H) 8 - 23 mg/dL 06/29/2025 7:27 AM EDT [facility] Creatinine, Plasma 1.39(H) 0.70 - 1.20 mg/dL 06/29/2025 7:27 AM EDT [facility] BUN/Creatinine Ratio 17 06/29/2025 7:27 AM EDT [facility] Sodium, Plasma 131(L) 136 - 145 mmol/L 06/29/2025 7:27 AM EDT [facility] Potassium, Plasma 3.8 3.6 - 4.9 mmol/L 06/29/2025 7:27 AM EDT [facility] Chloride, Plasma 99 97 - 107 mmol/L 06/29/2025 7:27 AM EDT [facility] CO2, Plasma 22 22 - 29 mmol/L 06/29/2025 7:27 AM EDT [facility] Anion Gap 10 6 - 16 mmol/L 06/29/2025 7:27 AM EDT [facility] Total Calcium, Plasma 7.6(L) 8.9 - 10.2 mg/dL 06/29/2025 7:27 AM EDT [facility] eGFRcr 54.5 mL/min/1.7 3m*2 06/29/2025 7:27 AM EDT [facility] Comment:Reported eGFRcr in m L/min/1.73m2 is based the CKD-EPI 2020 equation that does not use a race coefficient. Blood Venous blood specimen / Unknown Venipuncture / Unknown 06/29/2025 6:52 AM EDT 06/29/2025 6:56 AM EDT us Homerocrow Gutierrez APRN, [facility] LAB BLOOD ORDERAB LES Final Result Performing Organization Address City/[facility]/ZIP Co de Phone Number [facility] [address] [place] [address] * Lactate, venous (06/29/2025 6:52 AM EDT) Lactate, Venous, Whole Blood 1.5 0.5 - 2.2 mmol/L LAB HEMATOLOGY METHOD 06/29/2025 6:[address] [facility] Blood Venous blood specimen / Unknown Venipuncture / Unknown 06/29/2025 6:52 AM EDT 06/29/2025 6:55 AM EDT us Homerocrow Gutierrez APRN, [facility] LAB BLOOD ORDERAB LES Final Result Performing Organization Address [facility]/ZIP Co de Phone Number [facility] [address] [place] [address] * SEND SELIN MESSAGE (06/29/2025 2:00 AM EDT) Urine Urine specimen obtained by clean catch procedure / Unknown Non-blood Collection / Unknown 06/29/2025 2:00 AM EDT 06/29/2025 2:22 AM EDT us Rg Coleman MD LAB URINE ORDERABLES Final Res ult Performing Organization Address City/[facility]/ZIP Co de Phone Number [facility] [address] [place] [address] * (ABNORMAL) Urine Culture (06/29/2025 2:00 AM EDT) Culture 10,000 - 100,000 CFU/mL Diutina rugosa (formerly Celestina rugosa)(A) 07/02/2025 8:[address] [facility] Comment:This result was dete rmined by [employer] tof mass spectrometry using the [employer] database and is for research use only. Urine Urine specimen obtained by clean catch procedure / Unknown Non-blood Collection / Unknown 06/29/2025 2:00 AM EDT 06/29/2025 2:22 AM EDT Rg Coleman MD LAB MICROBIOLOGY - GENERAL ORD ERABLES Final Result Performing Organization Address [facility] Co de Phone Number [facility] [address] [place] [address] * Urinalysis Microscopic Examination (06/29/2025 2:00 AM EDT) Urine Urine specimen obtained by clean catch procedure / Unknown Non-blood Collection / Unknown 06/29/2025 2:00 AM EDT 06/29/2025 2:04 AM EDT Rg Coleman MD LAB URINE ORDERABLES Final Res ult Performing Organization Address [facility] Co de Phone Number [facility] [address] [place] [address] * Urine Salcedo Panel (06/29/2025 2:00 AM EDT) Extra Sent for Culture 06/29/2025 4:01 AM EDT [facility] Urine Urine specimen obtained by clean catch procedure / Unknown Non-blood Collection / Unknown 06/29/2025 2:00 AM EDT 06/29/2025 2:22 AM EDT Rg Coleman MD LAB URINE ORDERABLES Final Res ult Performing Organization Address [facility] Co de Phone Number [facility] [address] [place] [address] * (ABNORMAL) Urinalysis with reflex microscopic (Culture NOT Included) (06/29/2025 2:00 AM EDT) Color, Urine Kathleen LAB URINALYSIS - AUTOMATED METHOD 06/29/2025 3:11 AM EDT [facility] Clarity, Urine Cloudy LAB URINALYSIS - AUTOMATED METHOD 06/29/2025 3:11 AM EDT [facility] Spec Rillito, Urine 1.030 1.005 - 1.030 LAB URINALYSIS - AUTOMATED METHOD 06/29/2025 3:11 AM EDT [facility] pH, Urine 5.5 5.0 - 8.0 LAB URINALYSIS - AUTOMATED METHOD 06/29/2025 3:11 AM EDT [facility] Protein, Urine Trace(A) Negative mg/dL LAB URINALYSIS - AUTOMATED METHOD 06/29/2025 3:11 AM EDT [facility] Glucose, Urine Negative Negative mg/dL LAB URINALYSIS - AUTOMATED METHOD 06/29/2025 3:11 AM EDT [facility] Ketones, Urine Trace(A) Negative mg/dL LAB URINALYSIS - AUTOMATED METHOD 06/29/2025 3:11 AM EDT [facility] Blood, Urine Large(A) Negative LAB URINALYSIS - AUTOMATED METHOD 06/29/2025 3:11 AM EDT [facility] Bilirubin, Urine Small(A) Negative LAB URINALYSIS - AUTOMATED METHOD 06/29/2025 3:11 AM T [facility] Urobilinogen, Urine 1.0 0.2 to 1.0 mg/dL LAB URINALYSIS - AUTOMATED METHOD 06/29/2025 3:11 AM T [facility] Leukocytes, Urine Small(A) Negative LAB URINALYSIS - AUTOMATED METHOD 06/29/2025 3:11 AM EDT [facility] Nitrite, Urine Negative Negative LAB URINALYSIS - AUTOMATED METHOD 06/29/2025 3:11 AM T [facility] RBC, Urine >50(A) 0 to 3 /HPF LAB URINALYSIS - AUTOMATED METHOD 06/29/2025 3:11 AM EDT [facility] Comment:This result was prev iously suppressed from the chart. WBC, Urine 11 - 20(A) 0 to 5 /HPF LAB URINALYSIS - AUTOMATED METHOD 06/29/2025 3:11 AM EDT [facility] Comment:This result was prev iously suppressed from the chart. Squamous Epithelial Cells 0 - 2 0 to 5 /HPF LAB URINALYSIS - AUTOMATED METHOD 06/29/2025 3:11 AM EDT [facility] Comment:This result was prev iously suppressed from the chart. Hyaline Casts >20(A) 0 to 5 /LPF LAB URINALYSIS - AUTOMATED METHOD 06/29/2025 3:11 AM EDT [facility] Comment:This result was prev iously suppressed from the chart. Bacteria, Urine Negative Negative LAB URINALYSIS - AUTOMATED METHOD 06/29/2025 3:11 AM EDT [facility] Comment:This result was prev iously suppressed from the chart. Yeast (Budding and/or Pseudohyphae) Present(A) Absent 06/29/2025 3:11 AM EDT [facility] Comment:This result was prev iously suppressed from the chart. Urine Urine specimen obtained by clean catch procedure / Unknown Non-blood Collection / Unknown 06/29/2025 2:00 AM EDT 06/29/2025 2:04 AM EDT Narrative [facility] - 06/29/2025 3:11 AM EDT Urinalysis dipstick results may be inaccurate due to specimen color or an interfering substance in the specimen.Test performed by manual method Rg Coleman MD LAB URINE ORDERABLES Final Res ult Performing Organization Address [facility] Co de Phone Number [facility] [address] [place] [address] * (ABNORMAL) Troponin T, High Sensitivity, 2 Hour, Plasma (06/28/2025 11:57 PM EDT) Troponin T, High Sensitivity, 2 Hour 22(H) <19 ng/L 06/29/2025 12:22 AM EDT [facility] Troponin Delta 2 <10 ng/L 06/29/2025 12:22 AM EDT [facility] Troponin Delta Interpretation Not Significant 06/29/2025 12:22 AM EDT [facility] Comment:Not Significant. No acute change in troponin observed between the baseline and 2 hour samples. Blood Venous blood specimen / Unknown Venipuncture / Unknown 06/28/2025 11:57 PM EDT 06/29/2025 12:03 AM EDT Rg Coleman MD LAB BLOOD ORDERABLES Final Res ult Performing Organization Address [facility]/ZIP Co de Phone Number [facility] [address] [place] [address] * CT Angio Abdomen Pelvis (06/28/2025 11:11 [...] Total DLP (Dose-Length Product): 2949.46 mGy.cm (accession [id number]), 2949.46 mGy.cm (accession [id number]). Please note: The reported value represents the [...] Total DLP (Dose-Length Product): 2949.46 mGy.cm (accession [id number]),2949.46 mGy.cm (accession [id number]). Please note: The reported valuerepresents the total [...] Total DLP (Dose-Length Product): 2949.46 mGy.cm (accession [id number]), 2949.46 mGy.cm (accession [id number]). Please note: The reported value represents the [...] Total DLP (Dose-Length Product): 2949.46 mGy.cm (accession [id number]),2949.46 mGy.cm (accession [id number]). Please note: The reported valuerepresents the total [...] - 63 U/L 06/29/2025 7:03 AM EDT [facility] Blood Venous blood specimen / Unknown Venipuncture / Unknown 06/28/2025 9:39 PM EDT 06/28/2025 9:47 PM EDT Homero Gutierrez APRN, DNP LAB BLOOD ORDERAB LES Final Result [facility] [address] [place] [address] * Blood Culture (Aerobic/Anaerobet Set) (06/28/2025 9:39 PM EDT) Culture No growth at day 5 07/03/2025 11:02 PM EDT [facility] Blood Structure of left hand / Unknown Venipuncture / Unknown 06/28/2025 9:39 PM EDT 06/28/2025 10:04 PM EDT Rg Coleman MD LAB MICROBIOLOGY - GENERAL ORD ERABLES Final Result [facility] [address] [place] [address] * Blood Culture (Aerobic/Anaerobet Set) (06/28/2025 9:39 PM EDT) Culture No growth at day 5 07/03/2025 11:02 PM EDT [facility] Blood Structure of part of right upper limb / Unknown Venipuncture / Unknown 06/28/2025 9:39 PM EDT 06/28/2025 10:05 PM EDT Rg Coleman MD LAB MICROBIOLOGY - GENERAL ORD ERABLES Final Result Performing Organization Address [facility] Co de Phone Number [facility] [address] [place] [address] * (ABNORMAL) C-Reactive protein (06/28/2025 9:39 PM EDT) CRP, Plasma 63.6(H) <=8.0 mg/L 06/28/2025 10:[address] [facility] Blood Venous blood specimen / Unknown Venipuncture / Unknown 06/28/2025 9:39 PM EDT 06/28/2025 9:47 PM EDT Narrative [facility] - 06/28/2025 10:15 PM EDT This CRP test is appropriate for assessment of infection, systemic inflammation and/or tissue injury. To assess cardiovascular disease risk order high sensitivity CRP (CRPH). Rg Coleman MD LAB BLOOD ORDERABLES Final Res ult Performing Organization Address City/[facility]/ZIP Co de Phone Number [facility] [address] [place] [address] * (ABNORMAL) Troponin now and 120 min (06/28/2025 9:39 PM EDT) Troponin T, High Sensitivity, 0 Hour 24(H) <19 ng/L 06/28/2025 10:15 PM EDT [facility] Blood Venous blood specimen / Unknown Venipuncture / Unknown 06/28/2025 9:39 PM EDT 06/28/2025 9:47 PM EDT us Rg Coleman MD LAB BLOOD ORDERABLES Final Res ult [facility] [address] [place] [address] * (ABNORMAL) CMP (06/28/2025 9:39 PM EDT) Glucose, Plasma 122(H) 74 - 99 mg/dL 06/28/2025 10:15 PM EDT [facility] BUN, Plasma 23 8 - 23 mg/dL 06/28/2025 10:15 PM EDT [facility] Creatinine, Plasma 1.49(H) 0.70 - 1.20 mg/dL 06/28/2025 10:15 PM EDT [facility] BUN/Creatinine Ratio 15 06/28/2025 10:15 PM EDT [facility] Sodium, Plasma 131(L) 136 - 145 mmol/L 06/28/2025 10:15 PM EDT [facility] Potassium, Plasma 3.7 3.6 - 4.9 mmol/L 06/28/2025 10:15 PM EDT [facility] Chloride, Plasma 98 97 - 107 mmol/L 06/28/2025 10:15 PM EDT [facility] CO2, Plasma 20(L) 22 - 29 mmol/L 06/28/2025 10:15 PM EDT [facility] Anion Gap 13 6 - 16 mmol/L 06/28/2025 10:15 PM EDT [facility] Total Calcium, Plasma 8.1(L) 8.9 - 10.2 mg/dL 06/28/2025 10:15 PM EDT [facility] Total Protein 5.3(L) 6.3 - 7.9 g/dL 06/28/2025 10:15 PM EDT [facility] Albumin, Plasma 2.7(L) 3.5 - 5.2 g/dL 06/28/2025 10:15 PM EDT [facility] AST, Plasma 67(H) 10 - 50 U/L 06/28/2025 10:15 PM EDT [facility] ALT, Plasma 49 10 - 50 U/L 06/28/2025 10:15 PM EDT [facility] Alkaline Phosphatase, Plasma 157(H) 40 - 115 U/L 06/28/2025 10:15 PM EDT [facility] Total Bilirubin, Plasma 2.8(H) 0.2 - 1.1 mg/dL 06/28/2025 10:15 PM EDT [facility] eGFRcr 50.2 mL/min/1.7 3m*2 06/28/2025 10:15 PM EDT [facility] Comment:Reported eGFRcr in m L/min/1.73m2 is based the CKD-EPI 2020 equation that does not use a race coefficient. Blood Venous blood specimen / Unknown Venipuncture / Unknown 06/28/2025 9:39 PM EDT 06/28/2025 9:47 PM EDT Rg Coleman MD LAB BLOOD ORDERABLES Final Res ult [facility] [address] [place] [address] * Type and screen (06/28/2025 9:39 PM EDT) ABO/Rh O Positive 06/28/2025 9:39 PM EDT BLOOD BANK Antibody Screen Negative 06/28/2025 9:39 PM EDT BLOOD BANK Specimen Expiration 07/01/2025 23:59 06/28/2025 9:39 PM EDT BLOOD BANK Blood Venous blood specimen / Unknown Venipuncture / Unknown 06/28/2025 9:39 PM EDT 06/28/2025 9:47 PM EDT Rg Coleman MD LAB BLOOD BANK TEST ORDERABLES Final Result BLOOD BANK [address] [place] [address], * (ABNORMAL) APTT (06/28/2025 9:39 PM EDT) aPTT 70(H) 25 - 35 sec 06/28/2025 10:05 PM EDT [facility] Blood Venous blood specimen / Unknown Venipuncture / Unknown 06/28/2025 9:39 PM EDT 06/28/2025 9:47 PM EDT us Rg Coleman MD LAB BLOOD ORDERABLES Final Res ult [facility] [address] [place] [address] * (ABNORMAL) CBC w/diff (06/28/2025 9:39 PM EDT) WBC Count 23.92(H) 3.70 - 10.30 10*3/uL LAB HEMATOLOGY METHOD 06/29/2025 1:00 AM EDT [facility] RBC Count 3.78(L) 4.60 - 6.10 10*6/uL LAB HEMATOLOGY METHOD 06/29/2025 1:00 AM EDT [facility] HGB 12.3(L) 13.7 - 17.5 g/dL LAB HEMATOLOGY METHOD 06/29/2025 1:00 AM EDT [facility] HCT 34.7(L) 40.0 - 51.0 % LAB HEMATOLOGY METHOD 06/29/2025 1:00 AM EDT [facility] Platelet Count 128(L) 155 - 369 10*3/uL LAB HEMATOLOGY METHOD 06/29/2025 1:00 AM EDT [facility] MCV 92 79 - 98 fL LAB HEMATOLOGY METHOD 06/29/2025 1:00 AM EDT [facility] MCH 32.5(H) 26.0 - 32.0 pg LAB HEMATOLOGY METHOD 06/29/2025 1:00 AM EDT [facility] MCHC 35.4 30.7 - 35.5 g/dL LAB HEMATOLOGY METHOD 06/29/2025 1:00 AM EDT [facility] RDW 16.3(H) 11.5 - 14.5 % LAB HEMATOLOGY METHOD 06/29/2025 1:00 AM EDT [facility] MPV 12.2 8.8 - 12.5 fL LAB HEMATOLOGY METHOD 06/29/2025 1:00 AM EDT [facility] nRBC 0.0 <=0.0 per 100 WBCs LAB HEMATOLOGY METHOD 06/29/2025 1:00 AM EDT [facility] Differential Type Automated LAB HEMATOLOGY METHOD 06/29/2025 1:00 AM EDT [facility] Neutrophils % 59 % LAB HEMATOLOGY METHOD 06/29/2025 1:00 AM EDT [facility] Lymphocytes % 37 % LAB HEMATOLOGY METHOD 06/29/2025 1:00 AM EDT [facility] Monocytes % 3 % LAB HEMATOLOGY METHOD 06/29/2025 1:00 AM EDT [facility] Eosinophils % 0 % LAB HEMATOLOGY METHOD 06/29/2025 1:00 AM EDT [facility] Basophils % 0 % LAB HEMATOLOGY METHOD 06/29/2025 1:00 AM EDT [facility] Immature Granulocytes % 1 % LAB HEMATOLOGY METHOD 06/29/2025 1:00 AM EDT [facility] Neutrophils Absolute 13.97(H) 1.60 - 6.10 10*3/uL LAB HEMATOLOGY METHOD 06/29/2025 1:00 AM EDT [facility] Lymphocytes Absolute 8.87(H) 1.20 - 3.90 10*3/uL LAB HEMATOLOGY METHOD 06/29/2025 1:00 AM EDT [facility] Monocytes Absolute 0.73 0.30 - 0.90 10*3/uL LAB HEMATOLOGY METHOD 06/29/2025 1:00 AM EDT [facility] Eosinophils Absolute 0.07 0.00 - 0.50 10*3/uL LAB HEMATOLOGY METHOD 06/29/2025 1:00 AM EDT [facility] Basophils Absolute 0.06 0.00 - 0.10 10*3/uL LAB HEMATOLOGY METHOD 06/29/2025 1:00 AM EDT [facility] Immature Granulocytes Absolute 0.16(H) 0.00 - 0.06 10*3/uL LAB HEMATOLOGY METHOD 06/29/2025 1:00 AM EDT [facility] Blood Venous blood specimen / Unknown Venipuncture / Unknown 06/28/2025 9:39 PM EDT 06/28/2025 9:47 PM EDT [facility] 06/29/2025 1:00 AM EDT Therapeutic decision making should be based on absolute values, rather than percentages. Rg Coleman MD LAB BLOOD ORDERABLES Final Res ult Performing Organization Address [facility] Co de Phone Number [facility] [address] [place] [address] * (ABNORMAL) PT-INR (06/28/2025 9:39 PM EDT) Prothrombin Time 21.0(H) 12.0 - 14.3 sec 06/28/2025 10:04 PM EDT [facility] INR 1.8(H) 0.9 - 1.1 06/28/2025 10:[address] [facility] Blood Venous blood specimen / Unknown Venipuncture / Unknown 06/28/2025 9:39 PM EDT 06/28/2025 9:47 PM EDT Narrative [facility] - 06/28/2025 10:04 PM EDT OPTIMAL INR RANGES FOR PATIENT ON ORAL ANTICOAGULANT THERAPY Prevention of venous thromboembolism INR 2.0 to 3.0 In patients with heart disease: Atrial fibrillation INR 2.0 to 3.0 Valvular heart disease INR 2.0 to 3.0 Tissue heart valves INR 2.0 to 3.0 Mechanical prosthetic valves INR 2.5 to 3.5 Prevention of recurrent WI INR 2.5 to 3.5 Rg Coleman MD LAB BLOOD ORDERABLES Final Res ult Performing Organization Address [facility] Co de Phone Number [facility] [address] [place] [address] * (ABNORMAL) POCT venous blood gas gem (06/28/2025 9:33 PM EDT) pH, Venous 7.50(H) 7.32 - 7.43 06/28/2025 9:35 PM EDT [facility] pCO2, Venous 28(L) 40 - 55 mm Hg 06/28/2025 9:35 PM EDT [facility] pO2, Venous 66(H) 25 - 40 mm Hg 06/28/2025 9:35 PM EDT [facility] SO2, Venous 96(H) 65 - 80 % 06/28/2025 9:35 PM EDT [facility] Base Excess/Deficit, Venous -0.3 -2 - 3 mmol/L 06/28/2025 9:35 PM EDT [facility] HCO3, Venous 21.8(L) 22 - 26 mmol/L 06/28/2025 9:35 PM EDT [facility] Hemoglobin, Venous 12.8(L) 13.7 - 17.5 g/dL 06/28/2025 9:35 PM EDT [facility] Hematocrit, Venous 38.0(L) 40.0 - 51.0 % 06/28/2025 9:35 PM EDT [facility] Sodium, Venous 129(L) 136 - 145 mmol/L 06/28/2025 9:35 PM EDT [facility] Potassium, Venous 3.6 3.6 - 4.9 mmol/L 06/28/2025 9:35 PM EDT [facility] Comment:Hemolyzed, result ma y be falsely increased. POCT Chloride, Venous 98 97 - 107 mmol/L 06/28/2025 9:35 PM EDT [facility] Glucose, Venous 114(H) 74 - 99 mg/dL 06/28/2025 9:35 PM EDT [facility] Ionized Calcium, Venous 4.2(L) 4.6 - 5.1 mg/dL 06/28/2025 9:35 PM EDT [facility] Lactate, Venous 2.5(H) 0.5 - 2.2 mmol/L 06/28/2025 9:35 PM EDT [facility] Body Temperature 37.0 Celsius 06/28/2025 9:35 PM EDT [facility] pH, Temp Corrected, Venous 7.50(H) 7.32 - 7.43 06/28/2025 9:35 PM EDT [facility] pCO2, Temp Corrected, Venous 28(L) 40 - 55 mm Hg 06/28/2025 9:35 PM EDT [facility] pO2, Temp Corrected, Venous 66(H) 25 - 40 mm Hg 06/28/2025 9:35 PM EDT [facility] Corporate Securities Research Analyst NICK Herzog JD 06/28/2025 9:35 PM EDT [facility] Blood, Venous Whole blood specimen / Unknown 06/28/2025 9:33 PM EDT 06/28/2025 9:35 PM EDT Generic Provider Poct LAB POINT OF CARE TEST DOCKED DEVICE UNSOLICITED RESULTS Final Result Performing Organization Address [facility] de Phone Number [facility] [address] [place] [address] * (ABNORMAL) POCT glucose meter (06/28/2025 9:22 [...] Comment 06/28/2025 9:23 PM EDT [facility] Corporate Securities Research Analyst ID Abdi Major 06/28/2025 9:23 PM EDT [facility] Device ID [id number] 06/28/2025 9:23 PM EDT [facility] Specimen Type POC Capillary 06/28/2025 9:23 PM EDT [facility] Blood Capillary blood specimen / Unknown 06/28/2025 9:22 PM EDT 06/28/2025 9:23 PM EDT Generic Provider Poct LAB POINT OF CARE TEST DOCKED DEVICE UNSOLICITED RESULTS Final Result Performing Organization Address City/[facility] de Phone Number [facility] [address] [place] [address] documented in this encounter Visit Diagnoses Diagnosis Sepsis, localized, in operative wound (CMS/HCC)- Primary Febrile illness Hypotension, unspecified hypotension type Right ureteral stone Cirrhosis of liver with ascites, unspecified hepatic cirrhosis type Severe obesity (BMI 35.0-39.9) with comorbidity (CMS/HCC) Prostate CA Malignant neoplasm of prostate Hypotension Unspecified hypotension UTI (urinary tract infection) Urinary tract infection, site not specified Cirrhosis of liver (CMS/HCC) Cirrhosis of liver without mention of alcohol Leukocytosis Leukocytosis, unspecified Hyperlipidemia Other and unspecified hyperlipidemia Anemia Unspecified anemia Renal calculi Calculus of kidney Right ureteral stone Right ureteral stone Ureteral stone Calculus of [...] Given 07/04/2025 11:46 AM EDT 3.125 mg enoxaparin (Lovenox) syringe 110 mg 110 mg, [...] 8:48 AM EDT 200 mg iohexol (OMNIPaque) 300 MG/ML injection As needed, Starting on Eunice 07/03/25 at 1758, Until Eunice 07/03/25 at 1844, Routine, Intraprocedure Given 07/03/2025 5:58 PM EDT 30 mL lactulose (Chronulac) 10 GM/15ML solution 20 g [...] Given 07/04/2025 11:46 AM EDT 750 mg methocarbamol (Robaxin) tablet 500 mg 500 mg, [...] Given 07/04/2025 11:45 AM EDT 1 Application ondansetron (Zofran) injection [...] Given 07/01/2025 8:45 PM EDT 5 mg sodium chloride 0.9 % flush 10 mL [...] Given 06/30/2025 5:06 PM EDT 0.4 mg documented in this encounter Active and [...] Routine 0848 (Given - Provider: Jing Field, TIEAR) 0953 (Given - Provider: Jing Field RN)1618 (MAR Hold - Provider: Automatic Transfer Provider - Reason: Patient in procedure)2033 (MAR Unhold - Provider: Automatic Transfer Provider) 0819 (Given - Provider: Ju Herrera, TIERA) lactated Ringer's infusion (CANCELED) 100 mL/hr, Intravenous, [...] Munoz RN) 0954 (Given - Provider: Jing Field, TIERA)1546 (Given - Provider: Jing Field RN)1618 (MAR [...] Jing Field RN)2348 (Given - Provider: Marielena Munoz RN) 0953 (Given - Provider: Jing Field RN)1546 (Given - Provider: Jing Field RN)1618 (JAN Hold - Provider: Automatic Transfer Provider - Reason: Patient in procedure)2032 (MAR Unhold - Provider: Automatic Transfer Provider)222 (Given - Provider: Claude Ash, TIERA) 0701 (Given - Provider: Claude Ash RN)1520 [...] procedure)2032 (JAN Unhold - Provider: Automatic Transfer Provider)2228 (Not [...] Marielena Munoz RN - Reason: Patient/family refused)161 ([facility] Hold - Provider: Automatic Transfer Provider - Reason: Patient in procedure)1720 (Dose Auto Held - Provider: Automatic Transfer Provider)2032 ([facility] Unhold - Provider: Automatic Transfer Provider) 0711 (Given - Provider: Claude Ash RN) tamsulosin (Flomax) 24 hr capsule 0.4 mg 0.4 mg, Oral, Daily with dinner, First dose on 06/29/25 at 1800, Until Discontinued, Routine 171 (Given - Provider: Jing Field, TIERA) 161 ([facility] Hold - Provider: Automatic Transfer Provider - Reason: Patient in procedure)1800 (Dose Auto Held - Provider: Automatic Transfer Provider)2032 ([facility] Unhold - Provider: Automatic Transfer Provider) PRN Medication Order 07/02/2025 07/03/2025 07/04/2025 bisacodyl (Dulcolax) suppository 10 mg 10 mg, Rectal, Daily PRN, Starting on 06/30/25 at 0606, Until Mon07/04/25 at 1650, Routine, constipation 161 ([facility] Hold - Provider: Automatic Transfer Provider - Reason: Patient in procedure)2032 ([facility] Unhold - Provider: Automatic Transfer Provider) iohexol (OMNIPaque) 300 MG/ML injection (CANCELED) As needed, Starting on Eunice 07/03/25 at 1758, Until Eunice 07/03/25 at 1844, Routine, Intraprocedure 1758 (Given - Provider: Dyllan Paul MD) methocarbamol (Robaxin) tablet 500 mg 500 mg, Oral, 4 times daily PRN, Starting on 06/29/25 at 0627, Until Mon07/04/25 at 1650, Routine, muscle spasms 1618 ([facility] Hold - Provider: Automatic Transfer Provider - Reason: Patient in procedure)2032 ([facility] Unhold - Provider: Automatic Transfer Provider) ondansetron (Zofran) injection 4 mg(Linked Group 2) 4 mg, Intravenous, Every 6 hours PRN, Starting on 06/30/25 at 1657, Until Mon07/04/25 at 1650, Routine, vomiting, nausea 1618 ([facility] Hold - Provider: Automatic Transfer Provider - Reason: Patient in procedure)2032 ([facility] Unhold - Provider: Automatic Transfer Provider) ondansetron (Zofran) injection 4 mg (COMPLETED) 4 mg, Intravenous, Once as needed, 1 dose, Starting on Eunice 07/03/25 at 1627, Until Eunice 07/03/25 at 1805, Routine, Holding - Preprocedure, nausea, vomiting 1805 (Given - Provider: Lary Bloom, INSTRUCTIONAL TECHNOLOGY TEACHER, DNP) ondansetron ODT (Zofran-ODT) disintegrating tablet 4 mg(Linked Group 2) 4 mg, Oral, Every 6 hours PRN, Starting on 06/30/25 at 1657, Until Mon07/04/25 at 1650, Routine, nausea, vomiting 1618 ([facility] Hold - Provider: Automatic Transfer Provider - Reason: Patient in procedure)2032 ([facility] Unhold - Provider: Automatic Transfer Provider) oxyCODONE (Roxicodone) immediate release tablet 5 mg 5 mg, Oral, Every 6 hours PRN, Starting on Mon06/29/25 at 1605, Until Mon07/04/25 at 1650, Routine, moderate pain 2040 (Given - Provider: Marielean Munoz, TIERA) 1618 ([facility] Hold - Provider: Automatic Transfer Provider - Reason: Patient in procedure)2032 ([facility] Unhold - Provider: Automatic Transfer Provider)2226 (Given - Provider: Claude Ash RN) sodium chloride 0.9 % flush 10 mL(Linked Group 1) 10 mL, Intravenous, As needed, Starting on Mon06/29/25 at 0517, Until Mon07/04/25 at 1650, Routine, line care 1618 ([facility] Hold - Provider: Automatic Transfer Provider - Reason: Patient in procedure)2032 ([facility] Unhold - Provider: Automatic Transfer [...] documented as of this encounter Care Teams Cardroom Supervisor Relationship Specialty Start Date End Date Murray Prajapati MD [facility] [address] [place] [address] PCP - General 03/06/23 Jaja Camara, ENROLLMENT COUNSELOR [address] [facility] [address] [place], [place] [id number] Referring Physician Gastroenterology 03/06/23 Dyllan Paul MD [address] [id number] Surgeon Urology 04/29/25 documented as of this encounter
--- OUTSIDE RECORDS SUMMARY | 2025-07-03 17:25 | XMS_ITS | Encounter Summary ---
Author Organization [facility] Address [address] [id number] Care Team Providers Care Computer Systems Software Engineer Name Role Phone Murray Prajapati MD Primary Care Provider [phone] Jaja Camara APRN Unavailable [phone] Dyllan Paul MD Unavailable [phone] Reason for Visit * Auth/Cert (Routine) Specialty Diagnoses / Procedures Referred By Silverio barone Referred To Contact Diagnoses Sepsis, localized, in operative wound (CMS/HCC) Lizzie Cadena MD [address] [place] [address] Phone: tel: fax: PAV A Inpatient [address] [place] [address] Referral ID Status Reason Start Date Expiration Date Visits Re quested Visits Authorized [id number] 1 1 Encounter Details Date Type Department Care Team (Late st Contact Info) Description 07/03/2025 5:25 PM EDT Anesthesia Event [facility] A OPERATING ROOM [address] [place] [address] Anand Pedraza MD [address] [place] [address] Annel Doshi APRN, DNP [address] [place] [address] Anesthesia Record Procedure Summary Procedure [...] Right, Upper 06/12/25 1530 by Estefany Singh, hay sorter 06/12/25; 192; N; Y es; Surgical; Open [...] Ju Herrera RN 07/04/25 1140 by Ju Herrrea RN ETT Placement Date: 06/20 03/14; Placement Time: 1732 (created via procedure documentation); Mask Ventilation: 0 (RSI induction); Technique: Video laryngoscopy; Type: ETT - single; Single Lumen Tube Size: 7.5 mm; Cuffed: Yes; Laryngoscope: Wilfrid (hyper); Blade Size: 3; Location: Oral; Grade View: Grade I; Insertion Attempts: 1; Placement Verification: Auscultation, Capnometry; Airway Comments: Atraumatic. No change to dentition. ; Placed by: GENERAL MANAGER ROAD PRODUCTION; Removal Date: 07/03/25; Removal Time: 183807/03/251732 by [...] any time in the past 12 m [facility], were you homeless or living in a penitentiary (including now)? No 06/16/2025 CAGE ASSESSMENT Answer [...] drink first t rafy in the morning (EYE-DIRECTOR CORPORATE SECURITY) to steady your nerves or to get rid of a hangover? 0 06/28/2025 CAGE Questionnaire Score 0 025 Utilities Answer Date Recorded In the past 12 months has th [employer], gas, oil, or water [employer] threatened to shut off services in your [...] and Staff Patient location during procedure: OR GENERAL MANAGER ROAD PRODUCTION: Lary Bloom CRNA, DNP Performed: GENERAL MANAGER ROAD PRODUCTION Patient Condition Indications for airway management: anesthesia [...] CYSTOSCOPY, WITH URETERAL STENT INSERTION (Right) Location: [facility] / [facility] OR Surgeons: Dyllan Paul [...] 750 mg, Oral, 4 times daily PRN rgrwstdcxpjz-tzvm-nqrzkxyf-folic acid (Centrum) chewable tablet 1 tablet, Daily [...] QT Interval 336 QTC Interval 452 P [place] -6 R [place] -1 T Wave [place] 5 Diagnosis Sinus tachycardia Diagnosis Poor R-wave [...] is no recent study available for direct hssa-xx-kuaf comparison. CTA chest/abd/pelvis: 06/28 1. No acute [...] 3 - emergent Plan was reviewed with: GENERAL MANAGER ROAD PRODUCTION Anesthesia technique(s) discussed with the patient/family: general [...] Does not have CHF, dysrhythmias or past [place]. hypertension: Exercise tolerance is 2 flights of [...] Description 08/22/2025 9:00 AM EDT Office Visit [facility] [address], [address] [place] [address] Kathia Watkins MD [address] [place] [address] 08/28/2025 7:30 AM EDT Hospital Encounter [facility] A OPERATING ROOM [address] [place] [address] Dyllan Paul MD [address] [address] 08/28/2025 7:30 AM EDT Anesthesia Event [facility] A OPERATING ROOM [address] [place] [address] Paige Starkey, LAND AGENT [address] [facility] [address] [place] [address] 08/28/2025 7:30 AM EDT - 08/28/2025 9:15 AM EDT Surgery [facility] A OPERATING ROOM [address] [place] [address] Dyllan Paul MD [address] [address] URETEROSCOPY, WITH LASER LITHOTRIPSY [[id number] (CPT )] 09/03/2025 9:20 AM EDT Office Visit [facility] Medicine Specialties [address] [place] [address] Richi Awad MD [address] [place] [address] Scheduled Procedures Name Priority Associated Diagnoses Date/Ti me URETEROSCOPY, WITH LASER LITHOTRIPSY Ureteral stone 08/28/2025 7:30 AM EDT documented as of this encounter Procedures Procedure Name Priority Date/Time Associated Diagnosis Comments PB ANESTHESIA PLACEHOLDER Routine 07/03/2025 5:33 PM EDT AK AN ELECTIVE ENDOTRACHEAL AIRWAY Routine 07/03/2025 5:33 PM EDT documented in this encounter Results * AK AN ELECTIVE ENDOTRACHEAL AIRWAY, PB ANESTHESIA PLACEHOLDER (07/03/2025 5:33 PM EDT) Narrative Lary Bloom CRNA, DNP - 07/03/2025 5:33 PM EDT Lary Bloom CRNA, DNP 07/03/2025 5:47 PM Airway Date/Time: 07/03/2025 5:33 PM Reason: elective Airway not difficult General Information and Staff Patient location during procedure: OR GENERAL MANAGER ROAD PRODUCTION: Lary Bloom CRNA, DNP Performed: GENERAL MANAGER ROAD PRODUCTION Patient Condition Indications for airway management: anesthesia [...] hours, First dose (after last modification) on [place] 06/29/25 at 2200, Until Discontinued, Routine Bolus 07/03/2025 [...] documented as of this encounter Care Teams Computer Systems Software Engineer Relationship Specialty Start Date End Date Murray Prajapati MD [address] [place] [address] PCP - General 03/06/23 Jaja Camara APRN [address] [facility] [address] [place] [address] Referring Physician Gastroenterology 03/06/23 Dyllan Paul MD [address] [place] [address] Surgeon Urology 04/29/25 documented as of this encounter
--- OUTSIDE RECORDS SUMMARY | 2025-07-22 06:57 | XMS_ITS | Encounter Summary ---
Author Organization Healthcare Address [address] [place] [address] Care Team Providers Care Finger Lift Operator Name Role Phone Murray Prajapati MD Primary Care Provider [phone] Jaja Camara DYNAMICS AX DEVELOPER Unavailable [phone] Dyllan Paul MD Unavailable [phone] Wendy Card MATERIALS PLANNING MANAGER Unavailable Unavaila ble Reason for Referral * Imaging (Routine) - Closed Specialty Diagnoses / Procedures Referred By Silverio barone Referred To Contact Radiology Diagnoses Renal calculi Procedures CT Urogram Trice Herrear MD [address] [address] Phone: tel: fax: Referral ID Status Reason Start Date Expiration Date Visits Re quested Visits Authorized [id number] Closed 06/25/2025 12/25/2026 1 1 Reason for Visit * Imaging (Routine) - Closed Specialty Diagnoses / Procedures Referred By Silverio barone Referred To Contact Radiology Diagnoses Renal calculi Procedures CT Urogram Trice Herrera MD [address] [address] Phone: tel: fax: Referral ID Status Reason Start Date Expiration Date Visits Re quested Visits Authorized [id number] Closed 06/25/2025 12/25/2026 1 1 Encounter Details Date Type Department Care Team (Latest Contact Info) Description 07/22/2025 6:57 AM EDT - 07/22/2025 11:59 PM EDT Hospital Encounter [facility] A Radiology [address] [place] [address] Renal calculi Discharge Disposition: Home or Self [...] any time in the past 12 m [facility], were you homeless or living in a snf (including now)? No 07/28/2025 [facility] Utilities Answer Date Recorded In the past 12 months has th [employer], gas, oil, or water [employer] threatened to shut off services in your [...] drink first t rafy in the morning (EYE-DOBBY LOOM CHAIN PEGGER) to steady your nerves or to get [...] from the original note were not included. 1638 Caring for Yourself after Contrast Imaging If [...] 08/22/2025 9:00 AM EDT Office Visit [facility], [facility] & Mineral Metabolism [address] [facility], [address] [place] [address] Kathia Watkins MD [address] [facility] [address] [place] [address] 08/28/2025 7:30 AM EDT Hospital Encounter [facility] A OPERATING ROOM [address] [place] [address] Dyllan Paul MD [address] [place] [address] 08/28/2025 7:30 AM EDT Anesthesia Event [facility] A OPERATING ROOM [address] [place] [address] Paige Starkey, DYNAMICS AX DEVELOPER [address] [place] [address] 08/28/2025 7:30 AM EDT - 08/28/2025 9:15 AM EDT Surgery [facility] A OPERATING ROOM [address] [place] [address] Dyllan Paul MD [address] [place] [address] URETEROSCOPY, WITH LASER LITHOTRIPSY [58761 (CPT )] 09/03/2025 9:20 AM EDT Office Visit [facility] Medicine Specialties [address] [place] [address] Richi Awad MD [address] [place], [place] [id number] Scheduled Procedures Name Priority Associated Diagnoses Date/Ti me URETEROSCOPY, WITH LASER LITHOTRIPSY Ureteral stone 08/28/2025 7:30 AM EDT documented as of this encounter Goals Goal Patient Goal Type Associated Problems Recent Progress Patient-Stated? Author Autogenerat ed Goal Care Plan Autogenerated Problem No IshmaelJohnna documented as of this encounter Procedures Procedure [...] following split bolus administration of IV contrast, [id number], 150 mL. Reformatted images in the coronal [...] in the right mid ureter (series 3 [id number]). Punctate bilateral nonobstructing renal calculi are also [...] documented as of this encounter Care Teams Finger Lift Operator Relationship Specialty Start Date End Date Murray Prajapati MD [address] [facility] [address] [place] [address] PCP - General 03/06/23 Jaja Camara APRN [address] [facility] [address] [place] [address] Referring Physician Gastroenterology 03/06/23 Dyllan Paul MD [address] [facility] [address] [place] [address] Surgeon Urology 04/29/25 Wendy Card LPN VALUE-BASED TRANSFORMATION PROGRAM TCM Nurse 07/07/25 documented as of this encounter
--- OUTSIDE RECORDS SUMMARY | 2025-07-22 08:45 | XMS_ITS | Encounter Summary ---
Author Organization [facility] Address [address] [place] [address] Care Team Providers Care Hairspring Studder Name Role Phone Murray Prajapati MD Primary Care Provider [phone] Jaja Camara DENTAL PRACTITIONER Unavailable [phone] Dyllan Paul MD Unavailable [phone] Wendy Card NEUROLOGY PROFESSOR Unavailable Unavaila ble Reason for Visit * Reason Comments Follow-up Encounter Details Date Type Department Care Team (Late st Contact Info) Description 07/22/2025 8:45 AM EDT Office Visit [place] [facility] [address] [place] [address] Dyllan Paul MD [address] [place] [address] Ureteral stone (Primary Dx) Social [...] were you homeless or living in a mcc (including now)? No 07/28/2025 [facility] Utilities Answer Date Recorded In the past 12 months has [facility] [employer], [employer], oil, or water [employer] threatened to shut off services in your [...] drink first t rafy in the morning (EYE-LACTATION CONSULTANT) to steady your nerves or to get [...] Ruggiero MD - 07/22/2025 8:45 AM EDT [facility] Urology Clinic Note 07/22/25 CC: Prostate Cancer, [...] 2 % powder Apply to affected areas gzdeemhqgigw-tpgd-hsmoiygl-folic acid (Centrum) chewable tablet 1 tablet, Daily [...] edema Eugene Ruggiero MD Urology PGY-3 Pager: [phone] [1] Past Medical History: Diagnosis Date Cancer [...] Nephrology, Bone & Mineral Metabolism [address] [facility], [address] [place] [address] Kathia Watkins MD [address] [facility] [address] [place] [address] 08/28/2025 7:30 AM EDT Hospital Encounter PAV A OPERATING ROOM [address] [place] [address] Dyllan Paul MD [address] [address] 08/28/2025 7:30 AM EDT Anesthesia Event PAV A OPERATING ROOM [address] [place] [address] Paige Starkey, TORREY [address] [facility] [address] [place] [address] 08/28/2025 7:30 AM EDT - 08/28/2025 9:15 AM EDT Surgery PAV A OPERATING ROOM [address] [place] [address] Dyllan Paul MD [address] [address] URETEROSCOPY, WITH LASER LITHOTRIPSY [[id number] (CPT )] 09/03/2025 9:20 AM EDT Office Visit [facility] Medicine Specialties [address], [address] [place] [address] Richi Awad MD [address] [place] [address] Scheduled Procedures Name Priority Associated Diagnoses Date/Ti [...] skin kelsi present. 07/23/2025 8:34 AM EDT [facility] Urine Urine specimen obtained by clean catch procedure / Unknown Non-blood Collection / Unknown 07/22/2025 10:26 AM EDT 07/22/2025 10:49 AM EDT Dyllan Paul MD LAB MICROBIOLOGY - GENERAL OR DERABLES Final Result [facility] [address] [place] [address] documented in this encounter Visit Diagnoses Diagnosis [...] documented as of this encounter Care Teams Hairspring Studder Relationship Specialty Start Date End Date Murray Prajapati MD [address] [place] [address] PCP - General 03/06/23 Jaja Camara APRN [address] [place] [address] [place] [address] Referring Physician Gastroenterology 03/06/23 Dyllan Paul MD [address] [facility] [address] [place] [address] Surgeon Urology 04/29/25 Wendy Card LPN VALUE-BASED TRANSFORMATION PROGRAM TCM Nurse 07/07/25 documented as of this encounter
--- OUTSIDE RECORDS SUMMARY | 2025-08-06 09:30 | XMS_ITS | Encounter Summary ---
Author Organization [facility] Address [address] [place] [address] Care Team Providers Care Betting Agency Manager Name Role Phone Murray Prajapati MD Primary Care Provider [phone] Jaja Camara BREAKER OILER Unavailable [phone] Dyllan Paul MD Unavailable [phone] Wendy Card RAIL SPECIALIST Unavailable Unavaila ble Encounter Details Date Type Department Care Team (Late st Contact Info) Description 08/06/2025 9:30 AM EDT Pre-Admission Testing [facility] S Anesthesia [address] [place] [address] Anesthesia Record Procedure Summary Procedure Name Responsible Anesthesiologist Anesthesia Start Time Anesthesia Stop Time URETEROSCOPY, WITH LASER LITHOTRIPSY (Right) Events No events on file. Meds * Agents No agents on file. * Blood No blood administrations on file. Lines, Drains, and Airways Type Details Placement Removal Wound 06/12/25; 1530; N; Y es; Surgical; Laparoscopic (4 trocar entry sites for laparoscopic prostatectomy + one midline incision, 06/12/2025, with Dr. Paul); Abdomen; Lower, Left, Right, Upper 06/12/25 1530 by Estefany Singh, handicrafts teacher 06/12/25; 1928; N; Y es; Surgical; Open Surg; Abdomen; Mid 06/12/251928 by Idalia Leonardo Wound 06/29/25; 1999; Yes; Other (incision); Abdomen; Left, Lower; incision from laparoscopy leaking fluid 06/29/251999 by Denae Lowe RN documented in this encounter Social History Tobacco Use Types Packs/Day Years Used Date Smoking Tobacco: Never Passive Smoke Exposure: Never Smokeless Tobacco: Never Alcohol Use Standard Drinks/Week Comments Yes 0 (1 standard drink = 0.6 oz pur e alcohol) . last use 04/2025 PHQ-2 Answer Date Recorded Patient Health Questionnaire-2 [...] any time in the past 12 m [facility], were you homeless or living in a halfway (including now)? No 07/28/2025 [facility] Utilities Answer Date Recorded In the past 12 months has e [employer], gas, oil, or water [employer] threatened to shut off services in your [...] drink first t rafy in the morning (EYE-TREE DOCTOR) to steady your nerves or to get [...] as of this encounter Miscellaneous Notes * PAT Evaluation Note - Paige Starkey, TORREY - 08/06/2025 9:30 AM EDT HPI Eber Lowe is a 70 y.o. male who presents with Pre-op Diagnosis * Ureteral stone [N20.1] now scheduled for URETEROSCOPY, WITH LASER LITHOTRIPSY (Right). with Dyllan Paul MD on 08/28/2025 [facility] D/c summary ( 07/26 -07/31/2025)PMH Alcohol Use Disorder, alcoholic cirrhosis complicated by Hepatic Encephalopathy, esophageal varices, and ascites; prostate CA S/P robotic prostatectomy, chronic anemia, chronic hyponatremia, HLD, and recent history of PE on Lovenox who presents to ED from [facility] for higher level of care concerning LALITA, failure thrive, and evaluation for hepatorenal syndrome. Past Medical History[1] Family History[2] Social History[3] SURGICAL HISTORY: Surgical History[4] Allergies[5] MEDICATIONS: Current Medications[6] ROS Anesthesia: Date of last anesthetic: 07/03/2025 @ CYSTOSCOPY, WITH URETERAL STENT INSERTION (Right) CYSTOLITHOTOMY (Right: Bladder) Procedures ETT Cuffed: Yes Cormack-Lehane Classification: grade I - full view of glottis Technique Used For Successful Placement: video laryngoscopy Devices/Methods Used in Placement: intubating stylet Insertion Site: oral Blade Type: Wilfrid (hyper) Blade Size: 3 ETT Size (mm): 7.5 Number of Attempts at Approach: 1 No GA issues Does not have history of previous anesthesia, a history of anesthetic complications, obstructive sleep apnea and PONV. Cardiovascular: history of anticoagulation therapy and hyperlipidemia. Does not have angina, CAD, CHF, dyspnea, dysrhythmias, murmur, orthopnea, pacemaker, past NE, PVD or syncope. hypertension (not currently): Exercise tolerance is 2 flights of stairs. Cardio additional comments: Currently on Midodrine for Hypotension . Respiratory: allergic rhinitis (seasonal Allergies). Does not have home oxygen. Patient has no dyspnea.no asthma: no COPD: Has not had an upper respiratory infection in last 30 days. Has not had pneumonia in the last 30 days or COVID in the last 30 days. HEENT: Does not have difficulty swallowing, chipped teeth, loose teeth or missing teeth. Neurological: Does not have headaches. no seizures: Did not have a cerebrovascular accident. Musculoskeletal: Does not have arthritis. Does not have cervical spine limited mobility. Musc/Skel/Integ additional comments: Recent skin cancer excised from leg. Integumentary: Negative skin ROS. Gastrointestinal: Does not have GERD.Does not have hernia. ascites, cirrhosis and esophageal varices (EGD 08/13: g 1 ev; moderate PHG no focal liver lesion). obese. GI/ additional comments: nephrolithiasis, and prostate cancer s/p RALP with PLND c/b transected umbilical vein and significant blood loss (06/12/25). ( 2 Units of blood at this time)He was ultimately discharged 06/25 and readmitted 06/29/2025 and underwent cystolitholapaxy and right ureteral stent placement at that time for his stone burden. Genitourinary: chronic renal disease: ARFprostate cancer (06/12/2025) and renal calculi. Does not have renal disease. Hematological/Lymphatic: Does not have anemia. History of no DVT. History of pulmonary embolism. Received anticoagulation therapy. Not in a hypercoagulable state. no history of chemotherapy no history of radiation MRSA (2011now resolved). Does not have HIV or tuberculosis. Hem/Lymph ROS additional comments: On Lovenox bid 06/22/[address] IMPRESSION: 1.Right lower segmental and subsegmental pulmonary embolism. 2. Multiple foci of pneumoperitoneum noted in the visualized upper abdomen. Please see separate report for findings of the concurrently performed abdominal CT. Endocrine/Metabolic: does not have diabetes mellitus. Does not have thyroid disorder. Does not have a history of chronic steroid use. Does not have gout. Lab Results Component Value Date WBC 7.07 07/31/2025 HGB 9.9 (L) 07/31/2025 HCT 28.9 (L) 07/31/2025 MCV 92 07/31/2025 PLT 84 (L) 07/31/2025 Lab Results Component Value Date GLUCOSE 91 07/31/2025 BUN 24 (H) 07/31/2025 CREATININE 1.37 (H) 07/31/2025 BCR 18 07/31/2025 NA 139 07/31/2025 K 3.4 (L) 07/31/2025 CL 112 (H) 07/31/2025 CO2 18 (L) 07/31/2025 ALBUMIN 2.9 (L) 07/31/2025 ALKPHOS 97 07/31/2025 BILITOT 1.3 (H) 07/31/2025 Lab Results Component Value Date HGBA1C 5.4 06/16/2025 Lab Results Component Value Date INR 1.9 (H) 07/31/2025 INR 1.7 (H) 07/30/2025 INR 1.9 (H) 07/29/2025 Visit Vitals Smoking Status Never 07/31/2025 10:57 AM Vitals Systolic 103 Diastolic 69 Heart Rate 90 Temp 36.3 C Physical Exam Anesthesia Plan ASA 3 Anesthesia technique(s) discussed with the patient/family: general Comment: Evelyn phone screen Paige Starkey APRN [1] Past Medical History: Diagnosis Date Alcohol use disorder Cancer (CMS/HCC) january 26, 2025 Cirrhosis (CMS/HCC) 2021 History of methicillin resistant Staphylococcus aureus 2011 Hyperlipidemia Hypertension Kidney stone various Metabolic encephalopathy 06/17/2025 Substance abuse alcohol [2] Family History Problem [...] atorvastatin, Take 1 tablet by mouth daily. enoxaparin, Inject 0.8 mL under the skin every 12 hours. ferrous gluconate, Take 1 tablet by mouth daily. lactulose, Take 15 mL by mouth daily. melatonin, Take 2 tablets by mouth nightly. miconazole, Apply to affected areas midodrine, Take 1 tablet by mouth 3 times a day. tbnigltpamtp-ohsz-mxrhbnxp-folic acid, Chew 1 tablet daily. naloxone, 1. Give 1 spray in nostril for no/slow breathing or cannot wake after opioid use 2. Call 911 3. Repeat in other nostril if symptoms continue ondansetron ODT, Dissolve 1 tablet on the tongue every 6 hours as needed for nausea or vomiting. rifAXIMin, Take 1 tablet by mouth 2 times a day. Vitamin E, Take 1,000 Units by mouth 1 (one) time each day. * Preprocedure Instructions - Paige Starkey APRN - 08/06/2025 9:30 AM EDT Home Medication Instructions Current Medications Medication Instructions atorvastatin (Lipitor) 10 MG tablet Take night before surgery enoxaparin (Lovenox) 120 MG/0.8ML solution prefilled syringe Consult prescribing physician for instructions fluticasone (Flonase) 50 MCG/ACT nasal spray Take morning of surgery furosemide (Lasix) 40 MG tablet Hold day of surgery lactulose (Chronulac) 10 GM/15ML solution Hold day of surgery miconazole (Micotin) 2 % powder Hold day of surgery midodrine (Proamatine) 10 MG tablet Take morning of surgery odxwjskzhqps-tpsx-mdasodog-folic acid (Centrum) chewable tablet Hold day of surgery potassium chloride ER (Micro-K) 10 MEQ ER capsule Hold day of surgery rifAXIMin (Xifaxan) 550 MG tablet Take morning of surgery traZODone (Desyrel) 50 MG tablet Take night before surgery Vitamin E 450 MG (1000 UT) capsule Hold day of surgery No food after midnight the night before surgery. You can drink clear liquids up to 2 hours prior to arrival. Please do not try to get all your hydration in 2 hours prior to arrival. Start the day before surgery drinking more than you usually would.After midnight, you can have clear liquids only (water, apple juice, Gatorade) up to 2 hours prior to arrival. No coffee or tea. Park in Garage [address] Enter hospital on level C (pedway enclosed walkway). Turn right at the end of the pedway, You have arrived at your destination to the surgery registration and waiting area. General Preoperative Instructions You will be called the business day before surgery with your arrival time Do not eat or drink anything after midnight except water with your medications unless other instructions are given No alcohol or smoking prior to surgery Arrive on time to avoid delays Parking/Registration procedure explained You MUST have a responsible adult available for transport to and from hospital Visitation policy for the day of surgery reviewed Bring insurance card, photo ID, along with power of criminal attorney, guardianship or advanced directives if applicable Do not bring money, jewelry or other valuables Hibiclens bathing instructions reviewed if applicable Notify surgeon of fever, illness, any changes or if you decide not to have surgery Pediatric patients under 12 years of age (If applicable) No solid food or milk after midnight Formula 6 hours prior to arrival for surgery Breast milk 4 hours prior to arrival surgery Clear liquids 2 hours prior to arrival for surgery Diabetes Instructions (If applicable) Take diabetes medication as instructed You may have up to 4 ounces of apple juice 2 hours prior to arrival for surgery for low glucose documented in this encounter Plan of Treatment Upcoming Encounters Date Type Department Care Team (Latest Contact Info) Description 08/22/2025 9:00 AM EDT Office Visit [facility] Nephrology, Bone & Mineral Metabolism [address], [address] [place] [address] Kathia Watikns MD [address] [facility] [address] [place] [address] 08/28/2025 7:30 AM EDT Hospital Encounter [facility] A OPERATING ROOM [address] [place] [address] Dyllan Paul MD [address] [address] 08/28/2025 7:30 AM EDT Anesthesia Event [facility] A OPERATING ROOM [address] [place] [address] Paige Starkey, TORREY [address] [place] [address] 08/28/2025 7:30 AM EDT - 08/28/2025 9:15 AM EDT Surgery [facility] A OPERATING ROOM [address] [place] [address] Dyllan Paul MD [address] [address] URETEROSCOPY, WITH LASER LITHOTRIPSY [21819 (CPT )] 09/03/2025 9:20 AM EDT Office Visit [facility] [address] [place] [address] Richi Awad MD [address] [place] [address] Scheduled Procedures Name Priority Associated [...] plan has been documented for the patient 07/31/2025 12:28 PM EDT documented as of this encounter Care Teams Betting Agency Manager Relationship Specialty Start Date End Date Murray Prajapati MD [address] [facility] [address] [place] [address] PCP - General 03/06/23 Jaja Camara APRN [address] [facility] [address] [place] [address] Referring Physician Gastroenterology 03/06/23 Dyllan Paul MD [address] [facility] [address] [place] [address] Surgeon Urology 04/29/25 Wendy Card LPN VALUE-BASED TRANSFORMATION PROGRAM TCM Nurse 07/07/25 documented as of this encounter
[2025-08-15] VITALS (8 sets, daily range): BP systolic 106–138; BP diastolic 75–84; PULSE 102–103; RESP 17–22; TEMP 36.6–36.8; O2SAT 93–95; BMI 31.5
--- NOTE | 2025-08-15 09:54 | ECG_ITS ---
APPROVED REPORT Exam: Resting ECG HR:105 bpm ECG Measurements Heart Rate 105 AXES AK 186 P 17 QRSd 91 QRS 14 QT 361 T 11 QTc 422 Conclusion Sinus tachycardia Normal axis Normal intervals ST Electronically signed by : Cristobal Hernandez, 08/15/2025 16:29:43
--- NOTE | 2025-08-15 09:59 | PC.NURSE ---
FSBS 134 RN Aware
--- OUTSIDE RECORDS SUMMARY | 2025-08-15 10:10 | XMS_ITS ---
Author Organization [facility] Address [address] [place] [address] Care Team Providers Care Underground Distribution Engineer Name Role Phone Murray Prajapati MD Primary Care Provider Jaja Camara DOUGH MIXER HELPER Unavailable [phone] Dyllan Paul MD Unavailable [phone] Wendy Card LEATHER PARTS MATCHER Unavailable Unavaila [facility] Transitional Care Management Status:Closed (Closed) Start date:07/07/2025 Enrollment date:07/07/2025 Enrollment reason:Identified using hospital discharge data End date:08/04/2025 Close reason:Patient Readmitted Overview This episode type is for outpatient care managers enrolling patients in the [facility] Transitional Care Management program. Continued Care and Services Coordination
--- OUTSIDE RECORDS SUMMARY | 2025-08-15 10:11 | XMS_ITS | Encounter Summary ---
Author Organization [facility] Address [address] [place] [address] Care Team Providers Care Testing Manager Name Role Phone Murray Prajapati MD Primary Care Provider [phone] Jaja Camara GRE TUTOR Unavailable [phone] Dyllan Paul MD Unavailable [phone] Reason for Visit * Reason Onset Date Comments HCN Clinical Concern/Question 05/20/2025 Encounter Details Date Type Department Care Team (Late st Contact Info) Description 05/20/2025 [facility] [address], [address] [place] [address] Dyllan Paul MD [address] [place] [address] HCN Clinical Concern/Question Social History [...] in a alf (including now)? No 06/16/2025 Utilities Answer Date Recorded In the past 12 months has th e [employer], gas, oil, or water company threatened to [...] with info. Thank you Best contact number: [phone] (mobile) Optimal time of day to reach caller: ANYTIME Additional comments/information from caller: None Note: Please do not reply to this message. Follow-up communication and further actions as a result of this message need to be communicated with the patient directly, if the patient is not active onMyChart. If the patient is active on MyChart, they will receive notification of the communication/outcome via [employer]. documented in this encounter Plan of Treatment Upcoming Encounters Date Type Department Care Team (Latest Contact Info) Description 08/22/2025 9:00 AM EDT Office Visit [facility] Nephrology, Bone & Mineral Metabolism [address] [facility], [address] [place] [address] Kathia Watkins MD [address] [facility] [address] [place] [address] 08/28/2025 7:30 AM EDT Hospital Encounter PAV A OPERATING ROOM [address] [place] [address] Dyllan Paul MD [address] [facility] [address] [place] [address] 08/28/2025 7:30 AM EDT Anesthesia Event PAV A OPERATING ROOM [address] [place] [address] Paige Starkey, TORREY [address] [facility] [address] [place] [address] 08/28/2025 7:30 AM EDT - 08/28/2025 9:15 AM EDT Surgery PAV A OPERATING ROOM [address] [place] [address] Dyllan Paul MD [address] [facility] [address] [place] [address] URETEROSCOPY, WITH LASER LITHOTRIPSY [[id number] (CPT )] 09/03/2025 9:20 AM EDT [facility] [address] [place] [address] Richi Awad MD [address] [place] [address] Scheduled Procedures Name Priority Associated [...] documented as of this encounter Care Teams Testing Manager Relationship Specialty Start Date End Date Murray Prajapati MD [address] [place] [id number] PCP - General 03/06/23 Jaja Camara APRN [address] [facility] [address] [place] [id number] Referring Physician Gastroenterology 03/06/23 Dyllan Paul MD [id number] [place] [address] Surgeon Urology 04/29/25 documented as of this encounter
--- OUTSIDE RECORDS SUMMARY | 2025-08-15 10:11 | XMS_ITS ---
Author Organization [facility] Address [address] [place] [address] Care Team Providers Care Director Sanitation Bureau Name Role Phone Murray Prajapati MD Primary Care Provider [phone] Jaja Camara LANDCARE FACILITATOR Unavailable [phone] Dyllan Paul MD Unavailable [phone] Wendy Card POLE SHAVER HELPER Unavailable Unavaila ble LINK Program Status:Closed (Closed) Start date:06/30/2025 Enrollment date:06/30/2025 End date:06/30/2025 Close reason:Not Eligible Overview [place] Continued Care and Services Coordination
--- OUTSIDE RECORDS SUMMARY | 2025-08-15 10:11 | XMS_ITS | Encounter Summary ---
Author Organization [facility] Address [address] [place] [address] Care Team Providers Care Advertising Analyst Name Role Phone Murray Prajapati MD Primary Care Provider [phone] Jaja Camara PEDIATRIC ACUTE CARE UNIT NURSE Unavailable [phone] Dyllan Paul MD Unavailable [phone] Encounter Details Date Type Department Care Team [...] any time in the past 12 m [facility], were you homeless or living in a nursing home (including now)? No 06/16/2025 Utilities Answer [...] 9:00 AM EDT Office Visit Professional [facility] Nephrology, Bone & Mineral Metabolism [address] [facility], [address] [place] [address] Kathia Watkins MD [address] [facility] [address] [place] [address] 08/28/2025 7:30 AM EDT Hospital Encounter P[facility] A OPERATING ROOM [address] [place] [address] Dyllan Paul MD [address] [facility] [address] [address] 08/28/2025 7:30 AM EDT Anesthesia Event P[facility] A OPERATING ROOM [address] [place] [address] Paige Starkey APRN [address] [facility] [address] [place] [address] 08/28/2025 7:30 AM EDT - 08/28/2025 9:15 AM EDT Surgery PAV A OPERATING ROOM [address] [place] [address] Dyllan Paul MD [address] [address] URETEROSCOPY, WITH LASER LITHOTRIPSY [[id number] (CPT )] 09/03/2025 9:20 AM EDT Office Visit [facility] [address], 2nd [place] [address] Richi Awad MD 800 [place] [address] Scheduled Procedures Name Priority Associated [...] documented as of this encounter Care Teams Advertising Analyst Relationship Specialty Start Date End Date Murray Prajapati MD [address] [facility] [address] [place] [address] PCP - General 03/06/23 Jaja Camara APRN 1210 [place] [facility] [address] [place] [address] Referring Physician Gastroenterology 03/06/23 Dyllan Paul MD [address] [facility] [address] [place] [address] Surgeon Urology 04/29/25 documented as of this encounter
--- OUTSIDE RECORDS SUMMARY | 2025-08-15 10:11 | XMS_ITS | Encounter Summary ---
Author Organization [facility] Address [address] [place] [address] Care Team Providers Care Road Maker Name Role Phone Murray Prajapati MD Primary Care Provider [phone] Jaja Camara PLANNING AIDE Unavailable [phone] Dyllan Paul MD Unavailable [phone] Encounter Details Date Type Department Care Team [...] time in the past 12 m [facility], were you homeless or living in [...] Description 08/22/2025 9:00 AM EDT Office Visit [facility] Nephrology, Bone & Mineral Metabolism [address] [facility], [address] [place] [address] Kathia Watkins MD [address] [place] [address] 08/28/2025 7:30 AM EDT Hospital Encounter PAV A OPERATING ROOM [address] [place] [address] Dyllan Paul MD [address] [address] 08/28/2025 7:30 AM EDT Anesthesia Event P[facility] A OPERATING ROOM [address] [place] [address] Paige Starkey, PLANNING AIDE [address] [place] [address] 08/28/2025 7:30 AM EDT - 08/28/2025 9:15 AM EDT Surgery PAV A OPERATING ROOM [address] [place] [address] Dyllan Paul MD [address] [address] URETEROSCOPY, WITH LASER LITHOTRIPSY [[id number] (CPT )] 09/03/2025 9:20 AM EDT Office Visit [place] [facility] [address], 2nd [place] [address] Richi Awad MD 800 [place] [address] Scheduled Procedures Name Priority Associated [...] documented as of this encounter Care Teams Road Maker Relationship Specialty Start Date End Date Murray Prajapati MD 1210 [facility] [address] [place] [address] PCP - General 03/06/23 Jaja Camara APRN 1210 [facility] [address] [place] [address] Referring Physician Gastroenterology 03/06/23 Dyllan Paul MD [address] [facility] [address] [place] [address] Surgeon Urology 04/29/25 documented as of this encounter
--- OUTSIDE RECORDS SUMMARY | 2025-08-15 10:11 | XMS_ITS | Encounter Summary ---
Author Organization [facility] Address [address] [facility] [address] [place] [address] Care Team Providers Care Data Communications Technician Name Role Phone Murray Prajapati MD Primary Care Provider [phone] Jaja Camara PARATRANSIT OPERATOR Unavailable [phone] Dyllan Paul MD Unavailable [phone] Reason for Visit * Reason Onset Date Comments [facility] Care 06/27/2025 Encounter Details Date Type Department Care Team (Late st Contact Info) Description 06/27/2025 Telephone P[facility] [address] [place] [address] Dyllan Paul MD [address] [place] [address] [facility] Social History Tobacco Use Types Packs/Day Years [...] time in the past 12 m [facility], were you homeless or living in [...] drink first t rafy in the morning (EYE-HOSPITAL ADMINISTRATIVE ASSISTANT) to steady your nerves or to get rid of a hangover? 0 06/28/2025 CAGE Questionnaire Score 0 025 Utilities Answer Date Recorded In the past 12 months has th e electric, gas, oil, or water [employer] threatened to shut off services in your [...] Guide (CG) called the patient (pt) at [phone] and successfully completed outreach. Pt reported they are doing well and have no needs at this time. documented in this encounter Plan of Treatment Upcoming Encounters Date Type Department Care Team (Latest Contact Info) Description 08/22/2025 9:00 AM EDT Office Visit Professional [facility] Nephrology, Bone & Mineral Metabolism [address] [facility], [address] [place] [address] Kathia Watkins MD [address] [facility] [address] [place] [address] 08/28/2025 7:30 AM EDT Hospital Encounter PAV A OPERATING ROOM [address] [place] [address] Dyllan Paul MD [address] [place] [address] 08/28/2025 7:30 AM EDT Anesthesia Event PAV A OPERATING ROOM [address] [place] [address] Paige Starkey APRN [address] [place] [address] 08/28/2025 7:30 AM EDT - 08/28/2025 9:15 AM EDT Surgery PAV A OPERATING ROOM [address] [place] [address] Dyllan Paul MD [address] [address] URETEROSCOPY, WITH LASER LITHOTRIPSY [[id number] (CPT )] 09/03/2025 9:20 AM EDT Office Visit [place] [facility] [address], 2nd [place] [address] Richi Awad MD 800 [place] [address] Scheduled Procedures Name Priority Associated [...] documented as of this encounter Care Teams Data Communications Technician Relationship Specialty Start Date End Date Murray Prajapati MD [address] [place] [address] PCP - General 03/06/23 Jaja Camara APRN 1210 [facility] [address] [place] [address] Referring Physician Gastroenterology 03/06/23 Dyllan Paul MD [address] [address] Surgeon Urology 04/29/25 documented as of this encounter
--- OUTSIDE RECORDS SUMMARY | 2025-08-15 10:13 | XMS_ITS | Encounter Summary ---
Author Organization [facility] Address [address] [place] [address] Care Team Providers Care Doctor Podiatric Medicine Name Role Phone Murray Prajapati MD Primary Care Provider [phone] Jaja Camara LABORER [employer]AT[employer] LIFE Unavailable [phone] Dyllan Paul MD Unavailable [phone] Marlin Martinez RN Unavailable Unavailable Wendy Card TAILMAN Unavailable Unavaila ble Encounter Details Date Type Department Care Team (Late st Contact Info) Description 02/13/2025 Orders Only External Location [address] [place] [address] Provider, External Social History Tobacco Use Types [...] Bone & Mineral Metabolism [address] [facility], [address] [place] [address] Kathia Watkins MD [address] [facility] [address] [place] [address] 08/28/2025 7:30 AM EDT Hospital Encounter PAV A OPERATING ROOM [address] [place] [address] Dyllan Paul MD [address] [place] [address] 08/28/2025 7:30 AM EDT Anesthesia Event PAV A OPERATING ROOM [address] [place] [address] Paige Starkey, LABORER [employer]ATIC LIFE [address] [facility] [address] [place] [address] 08/28/2025 7:30 AM EDT - 08/28/2025 9:15 AM EDT Surgery PAV A OPERATING ROOM [address] [place] [address] Dyllan Paul MD [address] [address] URETEROSCOPY, WITH LASER LITHOTRIPSY [[id number] (CPT )] 09/03/2025 9:20 AM EDT Office Visit [place] [facility] [address] [place], 2nd [place] [address] Richi Awad MD 800 [place] [address] Scheduled Procedures Name Priority Associated [...] documented as of this encounter Care Teams Doctor Podiatric Medicine Relationship Specialty Start Date End Date Murray Prajapati MD 1210 [facility] [address] [place] [address] PCP - General 03/06/23 Jaja Camara, LABORER A[employer]ATIC LIFE 1210 [facility] [address] [place] [address] [id number] Referring Physician Gastroenterology 03/06/23 Dyllan Paul MD [id number] [place] [address] Surgeon Urology 04/29/25 Marlin Martinez, RN [facility] CDU- OBSERVATION UNIT Registered Nurse 06/30/25 06/30/25 Wendy Card LPN VALUE-BASED TRANSFORMATION PROGRAM TCM Nurse 07/07/25 documented as of this encounter
--- OUTSIDE RECORDS SUMMARY | 2025-08-15 10:13 | XMS_ITS | Encounter Summary ---
Author Organization [facility] Address [address] [place] [address] Care Team Providers Care Career Technical Counselor Name Role Phone Murray Prajapati MD Primary Care Provider [phone] Jaja Camara LACE WINDER Unavailable [phone] Dyllan Paul MD Unavailable [phone] Encounter Details Date Type Department Care Team [...] time in the past 12 m [facility], were you homeless or living in a mcc (including now)? No 06/16/2025 Utilities Answer Date [...] Nephrology, Bone & Mineral Metabolism [address] [facility], [address] [place] [address] Kathia Watkins MD [address] [place] [address] 08/28/2025 7:30 AM EDT Hospital Encounter PAV A OPERATING ROOM 800 [place] [address] Dyllan Paul MD [address] [address] 08/28/2025 7:30 AM EDT Anesthesia Event PAV A OPERATING ROOM 800 [place] [address] Paige Starkey, LACE WINDER [address] [place] [address] 08/28/2025 7:30 AM EDT - 08/28/2025 9:15 AM EDT Surgery PAV A OPERATING ROOM [address] [place] [address] Dyllan Paul MD [address] [address] URETEROSCOPY, WITH LASER LITHOTRIPSY [[id number] (CPT )] 09/03/2025 9:20 AM EDT Office Visit [place] [facility] [address], 2nd [place] [address] Richi Awad MD 800 [place] [address] Scheduled Procedures Name Priority Associated [...] documented as of this encounter Care Teams Career Technical Counselor Relationship Specialty Start Date End Date Murray Prajapati MD 1210 [facility] [address] [place] [address] PCP - General 03/06/23 Jaja Camara APRN 1210 [facility] [address] [place] [address] Referring Physician Gastroenterology 03/06/23 Dyllan Paul MD [address] [facility] [address] [place] [address] Surgeon Urology 04/29/25 documented as of this encounter
--- OUTSIDE RECORDS SUMMARY | 2025-08-15 10:13 | XMS_ITS | Encounter Summary ---
Author Organization [facility] Address [address] [place] [address] Care Team Providers Care Production Reproduction Manager Name Role Phone Murray Prajapati MD Primary Care Provider [phone] Jaja Camara BATHHOUSE KEEPER Unavailable [phone] Dyllan Paul MD Unavailable [phone] Encounter Details Date Type Department Care Team [...] in a fpc (including now)? No 06/16/2025 Utilities Answer Date [...] Description 08/22/2025 9:00 AM EDT Office Visit [facility] Nephrology, Bone & Mineral Metabolism [address] [facility], [address] [place] [address] Kathia Watkins MD [address] [facility] [address] [place] [address] 08/28/2025 7:30 AM EDT Hospital Encounter PAV A OPERATING ROOM [address] [place] [address] Dyllan Paul MD [address] [address] 08/28/2025 7:30 AM EDT Anesthesia Event PAV A OPERATING ROOM [address] [place] [address] Paige Starkey, TORREY [address] [place] [address] 08/28/2025 7:30 AM EDT - 08/28/2025 9:15 AM EDT Surgery PAV A OPERATING ROOM [address] [place] [address] Dyllan Paul MD [address] [address] URETEROSCOPY, WITH LASER LITHOTRIPSY [[id number] (CPT )] 09/03/2025 9:20 AM EDT Office Visit [place] [facility] [address], 2nd [place] [address] Richi Awad MD 800 [place] [address] Scheduled Procedures Name Priority Associated [...] documented as of this encounter Care Teams Production Reproduction Manager Relationship Specialty Start Date End Date Murray Prajapati MD 1210 [facility] [address] [place] [address] PCP - General 03/06/23 Jaja Camara APRN 1210 [facility] [address] [place] [address] Referring Physician Gastroenterology 03/06/23 Dyllan Paul MD [address] [place] [address] Surgeon Urology 04/29/25 documented as of this encounter
--- OUTSIDE RECORDS SUMMARY | 2025-08-15 10:13 | XMS_ITS | Encounter Summary ---
Author Organization [facility] Address [address] [id number] Care Team Providers Care Clockmaker Apprentice Name Role Phone Murray Prajapati MD Primary Care Provider [phone] Jaja Camara SEMICONDUCTOR WAFERS ETCHER STRIPPER Unavailable [phone] Dyllan Paul MD Unavailable [phone] Marlin Martinez RN Unavailable Unavailable Wendy Card UNIT AID Unavailable Unavaila ble Encounter Details Date Type Department Care Team (Late st Contact Info) Description 03/26/2025 Lab Requisition PAV H Lab [address] [place] [address] Dyllan Paul MD [address] [facility] [address] [place] [address] Elevated prostate specific antigen (PSA) Social History [...] Description 08/22/2025 9:00 AM EDT Office Visit [facility] Nephrology, Bone & Mineral Metabolism [address] [facility], [address] [place] [address] Kathia Watkins MD [address] [place] [address] 08/28/2025 7:30 AM EDT Hospital Encounter PAV A OPERATING ROOM [address] [place] [address] Dyllan Paul MD [address] [address] 08/28/2025 7:30 AM EDT Anesthesia Event PAV A OPERATING ROOM [address] [place] [address] Paige Starkey, TORREY [address] [place] [facility] [address] [place] [address] 08/28/2025 7:30 AM EDT - 08/28/2025 9:15 AM EDT Surgery PAV A OPERATING ROOM [address] [place] [address] Dyllan Paul MD [address] [address] URETEROSCOPY, WITH LASER LITHOTRIPSY [[id number] (CPT )] 09/03/2025 9:20 AM EDT Office Visit [facility] Medicine Specialties [address], 2nd [place] [address] Richi Awad MD [address] [place] [address] Scheduled Procedures Name Priority Associated Diagnoses Date/Ti me URETEROSCOPY, WITH LASER LITHOTRIPSY Ureteral stone 08/28/2025 7:30 AM EDT documented as of this encounter Procedures Procedure Name Priority Date/Time Associated Diagnosis Comments SURGICAL PATHOLOGY CONSULT Routine 03/26/2025 1:30 PM EDT Elevated prostate specific antigen (PSA) documented in this encounter Results * Surgical Pathology Consult (03/26/2025 1:30 PM EDT) Case Report Sugical Pathology Consult Case: [id number] Authorizing Provider: Dyllan Paul MD Collected: 03/26/2025 1338 Ordering Location: [facility] Lab Received: 03/26/2025 1330 Pathologist: Vandana Levine MD Specimen: Prostate, [id number] 03/27/2025 10:44 AM EDT [facility] Final Diagnosis PROSTATE, NEEDLE CORE [...] CARLEY PATTERN 4). 03/27/2025 10:44 AM EDT [facility] at 1044 EDT Comment Perineural invasion is identified. Cribriform pattern 4 is also seen. 03/27/2025 10:44 AM EDT [facility] Clinical Information R97.20 - Elevated prostate specific antigen (PSA) [ICD-10-CM] 03/27/2025 10:44 AM EDT [facility] Gross Description A. [id number] Received along with a corresponding pathology report from [facility] are 9 slides labeled outside case: [id number] collected on 01/22/2025. 03/27/2025 10:44 AM EDT [facility] Tissue Prostate / Unknown 1:30 PM EDT 03/26/2025 1:30 PM EDT Dyllan Paul MD LAB PATHOLOGY ORDERABLES Francia lezama Result [facility] [address] [place] [address] documented in this encounter Visit Diagnoses Diagnosis [...] documented as of this encounter Care Teams Clockmaker Apprentice Relationship Specialty Start Date End Date Murray Prajapati MD 1210 [place] [facility] [address] [place] [address] PCP - General 03/06/23 Jaja Camara APRN 1210 [place] [facility] [address] [place] [address] Referring Physician Gastroenterology 03/06/23 Dyllan Paul MD [address] [address] Surgeon Urology 04/29/25 Marlin Martinez, RN [facility] CDU- OBSERVATION UNIT Registered Nurse 06/30/25 06/30/25 Wendy Card LPN VALUE-BASED TRANSFORMATION PROGRAM TCM Nurse 07/07/25 documented as of this encounter
--- OUTSIDE RECORDS SUMMARY | 2025-08-15 10:13 | XMS_ITS | Encounter Summary ---
Author Organization [facility] Address [address] [place] [address] Care Team Providers Care Reducing System Operator Name Role Phone Murray Prajapati MD Primary Care Provider [phone] Jaja Camara BOILERS INSPECTOR Unavailable [phone] Dyllan Paul MD Unavailable [phone] Marlin Martinez RN Unavailable Unavailable Wendy Card MOBILITY ARCHITECT Unavailable Unavaila ble Encounter Details Date Type Department Care Team (Late st Contact Info) Description 02/13/2025 Orders Only External Location [address] [place] [address] Provider, External Social History Tobacco Use Types [...] AM EDT Office Visit Professional [facility] Nephrology, Bone & Mineral Metabolism [address] [facility], [address] [place] [address] Kathia Watkins MD [address] [facility] [address] [place] [address] 08/28/2025 7:30 AM EDT Hospital Encounter PAV A OPERATING ROOM [address] [place] [address] Dyllan Paul MD [address] [place] [address] 08/28/2025 7:30 AM EDT Anesthesia Event PAV A OPERATING ROOM [address] [place] [address] Paige Starkey, BOILERS INSPECTOR [address] [facility] [address] [place] [address] 08/28/2025 7:30 AM EDT - 08/28/2025 9:15 AM EDT Surgery PAV A OPERATING ROOM [address] [place] [address] Dyllan Paul MD [address] [address] URETEROSCOPY, WITH LASER LITHOTRIPSY [[id number] (CPT )] 09/03/2025 9:20 AM EDT Office Visit [place] [facility] [address] [place], 2nd [place] [address] Richi Awad MD 800 [place] [address] Scheduled Procedures Name Priority Associated [...] documented as of this encounter Care Teams Reducing System Operator Relationship Specialty Start Date End Date Murray Prajapati MD 1210 [facility] [address] [place] [address] PCP - General 03/06/23 Jaja Camara, BOILERS INSPECTOR 1210 [facility] [address] [place] [id number] Referring Physician Gastroenterology 03/06/23 Dyllan Paul MD [address] [place] [address] Surgeon Urology 04/29/25 Marlin Martinez, RN [facility] CDU- OBSERVATION UNIT Registered Nurse 06/30/25 06/30/25 Wendy Card LPN VALUE-BASED TRANSFORMATION PROGRAM TCM Nurse 07/07/25 documented as of this encounter
--- OUTSIDE RECORDS SUMMARY | 2025-08-15 10:13 | XMS_ITS | Encounter Summary ---
Author Organization [facility] Address [address] [place] [address] Care Team Providers Care French Comber Name Role Phone Murray Prajapati MD Primary Care Provider [phone] Jaja Camara FENCE GATE ASSEMBLER Unavailable [phone] Dyllan Paul MD Unavailable [phone] Encounter Details Date Type Department Care Team [...] any time in the past 12 m [facility], were you homeless or living in a mcfp (including now)? No 06/16/2025 Utilities Answer Date Recorded In the past 12 months has th e [employer], gas, oil, or water company threatened to [...] Description 08/22/2025 9:00 AM EDT Office Visit [facility] Nephrology, Bone & Mineral Metabolism [address] [facility], [address] [place] [address] Kathia Watkins MD [address] [facility] [address] [place] [address] 08/28/2025 7:30 AM EDT Hospital Encounter PAV A OPERATING ROOM [address] [place] [address] Dyllan Paul MD [address] [address] 08/28/2025 7:30 AM EDT Anesthesia Event PAV A OPERATING ROOM [address] [place] [address] Paige Starkey, TORREY [address] [place] [address] 08/28/2025 7:30 AM EDT - 08/28/2025 9:15 AM EDT Surgery PAV A OPERATING ROOM [address] [place] [address] Dyllan Paul MD [address] [address] URETEROSCOPY, WITH LASER LITHOTRIPSY [[id number] (CPT )] 09/03/2025 9:20 AM EDT Office Visit [place] [facility] Medicine [facility] [address] 2[address] [place] [address] Richi Awad MD [address] [place] [address] Scheduled Procedures Name Priority Associated Diagnoses [...] documented as of this encounter Care Teams French Comber Relationship Specialty Start Date End Date Murray Prajapati MD 1210 [facility] [address] [place] [address] PCP - General 03/06/23 Jaja Camara APRN 1210 [facility] [address] [place] [address] Referring Physician Gastroenterology 03/06/23 Dyllan Paul MD [address] [facility] [address] [place] [address] Surgeon Urology 04/29/25 documented as of this encounter
--- OUTSIDE RECORDS SUMMARY | 2025-08-15 10:13 | XMS_ITS | Clinical Summary ---
Author Organization [facility] Address [address] [place] [address] Care Team Providers Care Mechanical Project Engineer Name Role Phone Murray Prajapati MD Primary Care Provider Encounters Date Type Department Care Team Description 06/03/2025 Hospital Encounter [facility] [address] [place] [address] Jayme Peeryra Jr., MD from Last 3 Months Social [...] 3 -dose series) 2015 ANNUAL PHYSICAL 05/29/2024 INFLUENZA VACCINE 06/20/2025 COVID-19 Vaccine (1 - 2023-2 5 season) 2025 HEPATITIS C SCREENING Completed 04/11/2023, 023 AAA SCREEN ONCE Completed 06/29/2025, 0807/2025, 06/22/2025, Additional history exists Additional Health Concerns Infection Onset Date 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 Source: Healthcare. 04/29/2025 Insurance Member Subscriber Plan / Payer (Ef fective 2021-Present) Name:Eber Lowe Relation to Subscriber:Spouse Name:LUBNA LOWE Date of :1962 (Home) Address: [id number] [place] [address] Payer ID:[id number] (NAIC) Type:Not on file Address: [facility] [id number] [id number] Care Teams Mechanical Project Engineer Relationship Specialty Start Date End Date Murray Prajapati MD [address] [facility] [address] [place] [address] PCP - General Internal Medicine 05/29/24
--- OUTSIDE RECORDS SUMMARY | 2025-08-15 10:13 | XMS_ITS | Encounter Summary ---
Author Organization Healthcare Address [address] [place] [address] Care Team Providers Care Tool Supervisor Name Role Phone Murray Prajapati MD Primary Care Provider [phone] Jaja Camara CINEMA OPERATOR Unavailable [phone] Dyllan Paul MD Unavailable [phone] Marlin Martinez RN Unavailable Unavailable Wendy Card IT APPLICATION SUPPORT ANALYST Unavailable Unavaila ble Encounter Details Date Type Department Care Team (Late st Contact Info) Description 07/31/2024 Orders Only External Location [address] [place] [id number] Provider, External Social History Tobacco Use Types [...] [address] [facility], [address] [place] [address] Kathia Watkins MD [address] [facility] [address] [place] [address] 08/28/2025 7:30 AM EDT Hospital Encounter [facility] O[facility]ATING ROOM [address] [place] [address] Dyllan Paul MD [id number] [place] [address] 08/28/2025 7:30 AM EDT Anesthesia Event [facility] A OPERATING ROOM [address] [place] [address] Paige Starkey, CINEMA OPERATOR [address] [facility] [address] [place] [address] 08/28/2025 7:30 AM EDT - 08/28/2025 9:15 AM EDT Surgery [facility] A OPERATING ROOM [address] [place] [address] Dyllan Paul MD [address] [address] URETEROSCOPY, WITH LASER LITHOTRIPSY [[id number] (CPT )] 09/03/2025 9:20 AM EDT Office Visit [facility] [address], 2nd [place] [address] Richi Awad MD 800 [place] [address] Scheduled Procedures Name Priority Associated [...] documented as of this encounter Care Teams Tool Supervisor Relationship Specialty Start Date End Date Murray Prajapati MD 1210 [facility] [address] [place], [place] [id number] PCP - General 03/06/23 Jaja Camara APRN 1210 [facility] [address] [id number] Referring Physician Gastroenterology 03/06/23 Dyllan Paul MD [address] [facility] [address] [place] [address] Surgeon Urology 04/29/25 Marlin Martinez, RN [facility] CDU- OBSERVATION UNIT Registered Nurse 06/30/25 06/30/25 Wendy Card LPN VALUE-BASED TRANSFORMATION PROGRAM TCM Nurse 07/07/25 documented as of this encounter
--- OUTSIDE RECORDS SUMMARY | 2025-08-15 10:13 | XMS_ITS | Encounter Summary ---
Author Organization Healthcare Address [address] [place] [address] Care Team Providers Care Immigration Officer Name Role Phone Murray Prajapati MD Primary Care Provider [phone] Jaja Camara MICROSOFT BI CONSULTANT Unavailable [phone] Dyllan Paul MD Unavailable [phone] Marlin Martinez RN Unavailable Unavailable Wendy Card MAKE UP EDITOR Unavailable Unavaila ble Encounter Details Date Type Department Care Team (Late st Contact Info) Description 07/31/2024 Orders Only External Location [address] [place] [address] Provider, External Social History Tobacco Use Types [...] 08/22/2025 9:00 AM EDT Office Visit Professional [facility] Nephrology, Bone & Mineral Metabolism [address] [facility], [address] [place] [address] Kathia Watkins MD [address] [facility] [address] [place] [address] 08/28/2025 7:30 AM EDT Hospital Encounter PAV A OPERATING ROOM [address] [place] [address] Dyllan Paul MD [id number] [place] [address] 08/28/2025 7:30 AM EDT Anesthesia Event PAV A OPERATING ROOM [address] [place] [address] Paige Starkey, MICROSOFT BI CONSULTANT [address] [facility] [address] [place] [address] 08/28/2025 7:30 AM EDT - 08/28/2025 9:15 AM EDT Surgery PAV A OPERATING ROOM [address] [place] [address] Dyllan Paul MD [address] [address] URETEROSCOPY, WITH LASER LITHOTRIPSY [[id number] (CPT )] 09/03/2025 9:20 AM EDT Office Visit [place] [facility] [address], 2nd [place] [address] Richi Awad MD [address] [place] [address] Scheduled Procedures Name Priority Associated [...] documented as of this encounter Care Teams Immigration Officer Relationship Specialty Start Date End Date Murray Prajapati MD 1210 [facility] [address] [place] [address] PCP - General 03/06/23 Jaja Camara APRN 1210 [facility] [address] [place] [address] Referring Physician Gastroenterology 03/06/23 Dyllan Paul MD [address] [facility] [address] [place] [address] Surgeon Urology 04/29/25 Marlin Martinez, [facility]U- [facility]BS[facility] UNIT Registered Nurse 06/30/25 06/30/25 Wendy Card LPN VALUE-BASED TRANSFORMATION PROGRAM TCM Nurse 07/07/25 documented as of this encounter
--- OUTSIDE RECORDS SUMMARY | 2025-08-15 10:13 | XMS_ITS | Encounter Summary ---
Author Organization Healthcare Address [address] [place] [address] Care Team Providers Care Superintendent Radio Communications Name Role Phone Murray Prajapati MD Primary Care Provider [phone] Jaja Camara BROADCAST DIRECTOR OPERATIONS Unavailable [phone] Dyllan Paul MD Unavailable [phone] Marlin Martinez RN Unavailable Unavailable Wendy Card GINGER FARMER Unavailable Unavaila ble Encounter Details Date Type Department Care Team (Late st Contact Info) Description 08/02/2024 Orders Only External Location [address] [place] [address] Provider, External Social History Tobacco Use Types [...] 08/22/2025 9:00 AM EDT Office Visit [facility] Nephrology, Bone & Mineral Metabolism [address] [facility], [address] [place] [address] Kathia Watkins MD [address] [facility] [address] [place] [address] 08/28/2025 7:30 AM EDT Hospital Encounter PAV A OPERATING ROOM [address] [place] [address] Dyllan Paul MD [id number] [place] [address] 08/28/2025 7:30 AM EDT Anesthesia Event PAV A OPERATING ROOM [address] [place] [address] Paige Starkey, BROADCAST DIRECTOR OPERATIONS [address] [facility] [address] [place] [address] 08/28/2025 7:30 AM EDT - 08/28/2025 9:15 AM EDT Surgery PAV A OPERATING ROOM [address] [place] [address] Dyllan Paul MD [address] [address] URETEROSCOPY, WITH LASER LITHOTRIPSY [[id number] (CPT )] 09/03/2025 9:20 AM EDT Office Visit [place] [facility] [address], 2nd [place] [address] Richi Awad MD 800 [place] [address] Scheduled Procedures Name Priority Associated [...] documented as of this encounter Care Teams Superintendent Radio Communications Relationship Specialty Start Date End Date Murray Prajapati MD 1210 [facility] [address] [place] [address] PCP - General 03/06/23 Jaja Camara, BROADCAST DIRECTOR OPERATIONS 1210 [facility] [address] [place] [address] Referring Physician Gastroenterology 03/06/23 Dyllan Paul MD [address] [facility] [address] [place] [address] Surgeon Urology 04/29/25 Marlin Martinez, RN [facility] CDU- OBSERVATION UNIT Registered Nurse 06/30/25 06/30/25 Wendy Card LPN VALUE-BASED TRANSFORMATION PROGRAM TCM Nurse 07/07/25 documented as of this encounter
--- OUTSIDE RECORDS SUMMARY | 2025-08-15 10:13 | XMS_ITS | Encounter Summary ---
Author Organization [facility] Address [address] [place] [address] Care Team Providers Care Geek Squad Manager Name Role Phone Murray Prajapati MD Primary Care Provider [phone] Jaja Camara SHIPPING AND RECEIVING WEIGHER Unavailable [phone] Dyllan Paul MD Unavailable [phone] Marlin Martinez RN Unavailable Unavailable Wendy Card COMPUTER INFORMATION SCIENCE PROFESSOR Unavailable Unavaila ble Reason for Visit * Reason Comments Med Refill Encounter Details Date Type Department Care Team (Late st Contact Info) Description 06/18/2025 Refill [facility] [address] [facility] [address] [place] [address] Virginia Campa MD [address] [facility] [address] [place] [address] Esophageal varices without bleeding, unspecified [...] any time in the past 12 m [facility], were you homeless or living in a usp (including now)? No 06/16/2025 Utilities Answer Date Recorded In the past 12 months has th e [employer], gas, oil, or water giftee threatened to shut off services in your [...] & Mineral Metabolism [address] [facility], [address] [place] [address] Kathia Watkins MD [address] [place] [address] 08/28/2025 7:30 AM EDT Hospital Encounter PAV A OPERATING ROOM [address] [place] [address] Dyllan Paul MD [address] [place] [address] 08/28/2025 7:30 AM EDT Anesthesia Event PAV A OPERATING ROOM [address] [place] [address] Paige Starkey, SHIPPING AND RECEIVING WEIGHER [address] [place] [address] [place] [address] 08/28/2025 7:30 AM EDT - 08/28/2025 9:15 AM EDT Surgery PAV A OPERATING ROOM [address] [place] [address] Dyllan Paul MD [address] [place] [address] [place] [address] URETEROSCOPY, WITH LASER LITHOTRIPSY [[id number] (CPT )] 09/03/2025 9:20 AM EDT Office Visit [facility] Medicine Specialties [address] [address], [address] [place] [address] Richi Awad MD 800 [place], [place] [id number] Scheduled Procedures Name Priority Associated Diagnoses Date/Ti me URETEROSCOPY, WITH LASER LITHOTRIPSY Ureteral stone 08/28/2025 7:30 AM EDT documented as of this encounter Visit Diagnoses Diagnosis Esophageal varices without bleeding, unspecified esophageal varices type Ureteral stone Calculus of ureter documented in [...] documented as of this encounter Care Teams Geek Squad Manager Relationship Specialty Start Date End Date Murray Prajapati MD [address] [place] [address] PCP - General 03/06/23 Jaja Camara, SHIPPING AND RECEIVING WEIGHER 1210 [facility] [address] [place] [address] Referring Physician Gastroenterology 03/06/23 Dyllan Paul MD [address] [place] [address] [place] [address] Surgeon Urology 04/29/25 Marlin Martinez, RN [facility]OS[facility] CDU- OBSERVATION UNIT Registered Nurse 06/30/25 06/30/25 Wendy Card LPN VALUE-BASED TRANSFORMATION PROGRAM TCM Nurse 07/07/25 documented as of this encounter
--- OUTSIDE RECORDS SUMMARY | 2025-08-15 10:13 | XMS_ITS | Encounter Summary ---
Author Organization Healthcare Address [address] [place] [address] Care Team Providers Care Butter Grader Name Role Phone Murray Prajapati MD Primary Care Provider [phone] Jaja Camara CORNER BLOCK CUTTER Unavailable [phone] Dyllan Paul MD Unavailable [phone] Marlin Martinez RN Unavailable Unavailable Wendy Card CASHIER GENERAL Unavailable Unavaila ble Encounter Details Date Type Department Care Team (Late st Contact Info) Description 08/02/2024 Orders Only External Location [address] [place] [address] Provider, External Social History Tobacco Use Types [...] Bone & Mineral Metabolism [address] [facility], [address] [place] [address] Kathia Watkins MD [address] [facility] [address] [place] [address] 08/28/2025 7:30 AM EDT Hospital Encounter PAV A OPERATING ROOM [address] [place] [address] Dyllan Paul MD [address] [place] [address] 08/28/2025 7:30 AM EDT Anesthesia Event PAV A OPERATING ROOM [address] [place] [address] Paige Starkey, CORNER BLOCK CUTTER [address] [facility] [address] [place] [address] 08/28/2025 7:30 AM EDT - 08/28/2025 9:15 AM EDT Surgery PAV A OPERATING ROOM [address] [place] [address] Dyllan Paul MD [address] [address] URETEROSCOPY, WITH LASER LITHOTRIPSY [[id number] (CPT )] 09/03/2025 9:20 AM EDT [facility] [address], 2nd [place] [address] Richi Awad MD [address] [place] [address] Scheduled Procedures Name Priority Associated [...] documented as of this encounter Care Teams Butter Grader Relationship Specialty Start Date End Date Murray Prajapati MD 1210 [facility] [address] [place] [address] PCP - General 03/06/23 Jaja Camara, CORNER BLOCK CUTTER 1210 [facility] [address] [place] [address] Referring Physician Gastroenterology 03/06/23 Dyllan Paul MD [address] [facility] [address] [place] [address] Surgeon Urology 04/29/25 Marlin Martinez, RN [facility] CDU- OBSERVATION UNIT Registered Nurse 06/30/25 06/30/25 Wendy Card LPN VALUE-BASED TRANSFORMATION PROGRAM TCM Nurse 07/07/25 documented as of this encounter
--- OUTSIDE RECORDS SUMMARY | 2025-08-15 10:13 | XMS_ITS | Encounter Summary ---
Author Organization Healthcare Address [address] [place] [address] Care Team Providers Care Painter Tumbling Barrel Name Role Phone Murray Prajapati MD Primary Care Provider [phone] Jaja Camara INTERNATIONAL PROJECT MANAGER Unavailable [phone] Dyllan Paul MD Unavailable [phone] Marlin Martinez RN Unavailable Unavailable Wendy Card LABORER LIVESTOCK Unavailable Unavaila ble Encounter Details Date Type Department Care Team (Late st Contact Info) Description 06/28/2024 Orders Only External Location [address] [place] [address] Provider, External Social History Tobacco Use Types [...] 08/22/2025 9:00 AM EDT Office Visit Professional [facility] Nephrology, Bone & Mineral Metabolism [address] [facility], [address] [place] [address] Kathia Watkins MD [address] [facility] [address] [place] [address] 08/28/2025 7:30 AM EDT Hospital Encounter PAV A OPERATING ROOM [address] [place] [address] Dyllan Paul MD [address] [place] [address] 08/28/2025 7:30 AM EDT Anesthesia Event PAV A OPERATING ROOM [address] [place] [address] Paige Starkey, INTERNATIONAL PROJECT MANAGER [address] [facility] [address] [place] [address] 08/28/2025 7:30 AM EDT - 08/28/2025 9:15 AM EDT Surgery PAV A OPERATING ROOM [address] [place] [address] Dyllan Paul MD [address] [address] URETEROSCOPY, WITH LASER LITHOTRIPSY [[id number] (CPT )] 09/03/2025 9:20 AM EDT Office Visit [place] [facility] [address], 2nd [place] [address] Richi Awad MD 800 [place] [address] Scheduled Procedures Name Priority Associated [...] documented as of this encounter Care Teams Painter Tumbling Barrel Relationship Specialty Start Date End Date Murray Prajapati MD 1210 [facility] [address] [place] [address] PCP - General 03/06/23 Jaja Camara, INTERNATIONAL PROJECT MANAGER 1210 [facility] [address] [place] [address] Referring Physician Gastroenterology 03/06/23 Dyllan Paul MD [address] [facility] [address] [place] [address] Surgeon Urology 04/29/25 Marlin Martinez, RN HOSPITAL CDU- OBSERVATION UNIT Registered Nurse 06/30/25 06/30/25 Wendy Card LPN VALUE-BASED TRANSFORMATION PROGRAM TCM Nurse 07/07/25 documented as of this encounter
--- OUTSIDE RECORDS SUMMARY | 2025-08-15 10:13 | XMS_ITS | Encounter Summary ---
Author Organization [facility] Address [address] [place] [address] Care Team Providers Care Heater Operator Helper Name Role Phone Murray Prajapati MD Primary Care Provider [phone] Jaja Camara CDL DEDICATED TRUCK DRIVER Unavailable [phone] Dyllan Paul MD Unavailable [phone] Wendy Card MULE TENDER Unavailable Unavaila ble Encounter Details Date Type [...] any time in the past 12 m [facility], were you homeless or living in a mcfp (including now)? No 07/28/2025 [facility] Utilities Answer Date Recorded In the past [...] drink first t rafy in the morning (EYE-REFRACTORY GRINDER OPERATOR) to steady your nerves or to [...] Description 08/22/2025 9:00 AM EDT Office Visit [facility] Nephrology, Bone & Mineral Metabolism [address] [facility], [address] [place] [address] Kathia Watkins MD [address] [facility] [address] [place] [address] 08/28/2025 7:30 AM EDT Hospital Encounter PAV A OPERATING ROOM [address] [place] [address] Dyllan Paul MD [address] [address] 08/28/2025 7:30 AM EDT Anesthesia Event PAV A OPERATING ROOM [address] [place] [address] Paige Starkey, CDL DEDICATED TRUCK DRIVER [address] [facility] [address] [place] [address] 08/28/2025 7:30 AM EDT - 08/28/2025 9:15 AM EDT Surgery PAV A OPERATING ROOM [address] [place] [address] Dyllan Paul MD [address] [address] URETEROSCOPY, WITH LASER LITHOTRIPSY [[id number] (CPT )] 09/03/2025 9:20 AM EDT Office Visit [place] [facility] [address], 2nd [place] [address] Richi Awad MD 800 [place] [address] Scheduled Procedures Name Priority Associated [...] documented as of this encounter Care Teams Heater Operator Helper Relationship Specialty Start Date End Date Murray Prajapati MD 1210 [facility] [address] [place] [address] PCP - General 03/06/23 Jaja Camara APRN 1210 [facility] [address] [place] [address] Referring Physician Gastroenterology 03/06/23 Dyllan Paul MD [address] [facility] [address] [place] [address] Surgeon Urology 04/29/25 Wendy Card LPN VALUE-BASED TRANSFORMATION PROGRAM TCM Nurse 07/07/25 documented as of this encounter
--- OUTSIDE RECORDS SUMMARY | 2025-08-15 10:13 | XMS_ITS | Encounter Summary ---
Author Organization Healthcare Address [address] [place] [address] Care Team Providers Care Manager Retirement Name Role Phone Murray Prajapati MD Primary Care Provider [phone] Jaja Camara CLASSIFIED ADVERTISING CLERK Unavailable [phone] Dyllan Paul MD Unavailable [phone] Marlin Martinez RN Unavailable Unavailable Wendy Card IMMIGRATION LAWYER Unavailable Unavaila ble Encounter Details Date Type Department Care Team (Late st Contact Info) Description 05/13/2024 Orders Only External Location [address] [place] [address] Provider, External Social History Tobacco Use Types [...] AM EDT Office Visit Professional [facility] Nephrology, Bone & Mineral Metabolism [address] [facility], [address] [place] [address] Kathia Watkins MD [address] [facility] [address] [place] [address] 08/28/2025 7:30 AM EDT Hospital Encounter PAV A OPERATING ROOM [address] [place] [address] Dyllan Paul MD [address] [place] [address] 08/28/2025 7:30 AM EDT Anesthesia Event PAV A OPERATING ROOM [address] [place] [address] Paige Starkey, CLASSIFIED ADVERTISING CLERK [address] [facility] [address] [place] [address] 08/28/2025 7:30 AM EDT - 08/28/2025 9:15 AM EDT Surgery PAV A OPERATING ROOM [address] [place] [address] Dyllan Paul MD [address] [address] URETEROSCOPY, WITH LASER LITHOTRIPSY [[id number] (CPT )] 09/03/2025 9:20 AM EDT Office Visit [place] [facility] [address], 2[address] [place] [address] Richi Awad MD 800 [place] [address] Scheduled Procedures Name Priority Associated [...] as of this encounter Care Teams Manager Retirement Relationship Specialty Start Date End Date Murray Prajapati MD 1210 [facility] [address] [place] [address] PCP - General 03/06/23 Jaja Camara APRN 1210 [facility] [address] [place] [address] Referring Physician Gastroenterology 03/06/23 Dyllan Paul MD [address] [facility] [address] [place] [address] Surgeon Urology 04/29/25 Marlin Martinez, RN [facility] CDU- OBSERVATION UNIT Registered Nurse 06/30/25 06/30/25 Wendy Card LPN VALUE-BASED TRANSFORMATION PROGRAM TCM Nurse 07/07/25 documented as of this encounter
--- OUTSIDE RECORDS SUMMARY | 2025-08-15 10:14 | XMS_ITS | Encounter Summary ---
Author Organization [facility] Address [address] 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 0 06/28/2025 CAGE Questionnaire Score 0 025 Utilities Answer Date Recorded In the past 12 months has th e [employer], gas, oil, or water company threatened to [...] 08/22/2025 9:00 AM EDT Office Visit [facility] Nephrology, Bone & Mineral Metabolism [address] [facility], [address] [place] [address] Kathia Watkins MD [address] [facility] 401 [place] [address] 08/28/2025 7:30 AM EDT Hospital Encounter PAV A OPERATING ROOM [address] [place] [address] Dyllan Paul MD [address] [place] [address] [address] 08/28/2025 7:30 AM EDT Anesthesia Event PAV A OPERATING ROOM [address] [place] [address] Paige Starkey, BENEFITS ADMINISTRATOR [address] [place] [address] [place] [address] 08/28/2025 7:30 AM EDT - 08/28/2025 9:15 AM EDT Surgery PAV A OPERATING ROOM [address] [place] [address] Dyllan Paul MD [address] [place] [address] [place] [address] URETEROSCOPY, WITH LASER LITHOTRIPSY [[id number] (CPT )] 09/03/2025 9:20 AM EDT Office Visit [place] [facility] [address], 2nd [place] [address] Richi Awad MD [address] [place] [place], [place] [address] Scheduled Procedures Name Priority Associated Diagnoses Date/Ti [...] documented as of this encounter Care Teams Retail Brand Ambassador Relationship Specialty Start Date End Date Murray Prajapati MD 1210 [facility] [address] [place] [address] PCP - General 03/06/23 Jaja Camara APRN 1210 [facility] [address] [place] [address] Referring Physician Gastroenterology 03/06/23 Dyllan Paul MD [address] [place] [address] [place] [address] Surgeon Urology 04/29/25 Wendy Card LPN VALUE-BASED TRANSFORMATION PROGRAM TCM Nurse 07/07/25 documented as of this encounter
--- OUTSIDE RECORDS SUMMARY | 2025-08-15 10:14 | XMS_ITS | Encounter Summary ---
Author Organization [facility] Address [address] [place] [address] Care Team Providers Care Systems Manager Name Role Phone Murray Prajapati MD Primary Care Provider [phone] Jaja Camara NIGHTCLUB MANAGER Unavailable [phone] Dyllan Paul MD Unavailable [phone] Encounter Details Date Type Department Care Team [...] were you homeless or living in a skilled nursing (including now)? No 06/16/2025 CAGE ASSESSMENT Answer [...] drink first t rafy in the morning (EYE-STREETCAR DISPATCHER) to steady your nerves or to get [...] Description 08/22/2025 9:00 AM EDT Office Visit [facility] Nephrology, Bone & Mineral Metabolism [address] [place] [address] Kathia Watkins MD [address] [place] [address] 08/28/2025 7:30 AM EDT Hospital Encounter [facility] [address] [place] [address] Dyllan Paul MD [address] [place] [address] 08/28/2025 7:30 AM EDT Anesthesia Event [facility] [address] [place] [id number] Paige Starkey, TORREY [address] [place] [address] 08/28/2025 7:30 AM EDT - 08/28/2025 9:15 AM EDT Surgery [facility] [address] [place] [address] Dyllan Paul MD [address] [place] [address] URETEROSCOPY, WITH LASER LITHOTRIPSY [98180 (CPT )] 09/03/2025 9:20 AM EDT Office Visit [facility] [address] [place] [address] Richi Awad MD [address] [place] [address] Scheduled Procedures Name Priority Associated [...] documented as of this encounter Care Teams Systems Manager Relationship Specialty Start Date End Date Murray Prajapati MD [id number] [place] [address] PCP - General 03/06/23 Jaja Camara APRN [address] [facility] [address] [place] [address] Referring Physician Gastroenterology 03/06/23 Dyllan Paul MD [address] [place] [id number] Surgeon Urology 04/29/25 documented as of this encounter
--- OUTSIDE RECORDS SUMMARY | 2025-08-15 10:14 | XMS_ITS | Encounter Summary ---
Author Organization [facility] Address [address] [id number] Care Team Providers Care Assessment Consultant Name Role Phone Murray Prajapati MD Primary Care Provider [phone] Jjaa Camara WEBSPHERE CONSULTANT Unavailable [phone] Dyllan Paul MD Unavailable [phone] Encounter Details Date Type Department Care Team (Late st Contact Info) Description 06/28/2025 Telephone [facility] [address] [place] [address] Eugene Ruggiero MD [address] [id number] Social History Tobacco Use Types Packs/Day Years [...] drink first t rafy in the morning (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 0 06/28/2025 CAGE Questionnaire Score 0 025 Utilities Answer Date Recorded In the past 12 months has th e [employer], gas, oil, or water company threatened [...] AM EDT Office Visit [facility] Nephrology, Bone & Mineral Metabolism [address] [place] [address] Kathia Watkins MD [address] [facility] [address] [place] [address] 08/28/2025 7:30 AM EDT Hospital Encounter [facility] [address] [place] [address] Dyllan Paul MD [address] [facility] [address] [place] [address] 08/28/2025 7:30 AM EDT Anesthesia Event [facility] [address] [place] [address] Paige Starkey APRN [address] [facility] [address] [place] [address] 08/28/2025 7:30 AM EDT - 08/28/2025 9:15 AM EDT Surgery [facility] [address] [place] [address] Dyllan Paul MD [address] [facility] [address] [place] [address] URETEROSCOPY, WITH LASER LITHOTRIPSY [[id number] (CPT )] 09/03/2025 9:20 AM EDT Office [facility] [address] [place] [address] Richi Awad MD [address] [place] [address] Scheduled Procedures Name Priority Associated [...] documented as of this encounter Care Teams Assessment Consultant Relationship Specialty Start Date End Date Murray Prajapati MD [address] [facility] [address] [place] [address] PCP - General 03/06/23 Jaja Camara APRN [address] [place] [address] [place] [place] [address] Referring Physician Gastroenterology 03/06/23 Dyllan Paul MD [address] [id number] Surgeon Urology 04/29/25 documented as of this encounter
--- OUTSIDE RECORDS SUMMARY | 2025-08-15 10:14 | XMS_ITS | Clinical Summary ---
Author Organization [facility] Address [address] [place] [address] Care Team Providers Care Network Control Operator Name Role Phone Murray Prajapati MD Primary Care Provider [phone] Jaja Camara NURSING HOME ASSISTANT Unavailable [phone] Dyllan Paul MD Unavailable [phone] Wendy Card FIRE MANAGER Unavailable Unavaila ble Allergies No known active [...] tabletIndications: Alcoholic cirrhosis of liver with ascites Take 1 tablet by mouth 2 times [...] pain. 60 tablet 07/04/20 25 025 Active Problems Problem [...] Assessment & Plan (06/16/2025 12:52 PM EDT): 59: Reports he is abstinent for 3-4months, then resumes occasional alcohol around 2-3 glasses of wine a few times a week to 2 shots of bourbon a few times a week, last drink about a week ago. Monitor liver function with daily labs -Continue CIWA monitoring - Continue Thiamine/Folate -PETH pending Assessment & Plan (06/15/2025 9:12 AM EDT): 5: Reports he is abstinent for 3-4months, then [...] Pre-Admission Testing [facility] [address] [place] [address] 08/06/2025 Travel 08/04/2025 Telephone [facility] [address] [place] [address] Lanre Franklin MD 08/04/2025 Patient Outreach POPULATION [address], [address] [place] [address] [facility] 08/04/2025 Patient Outreach POPULATION [address], [address] [place] [address] [facility] 08/01/2025 Telephone [facility] Urology [address], [address] [place] [address] Dyllan Paul MD 08/01/2025 Telephone [facility] Medicine Specialties [address], [address] [place] [phone] Lata Leonardo 07/27/2025 Travel 07/26/2025 Travel 07/25/2025 Orders Only External Location [address] [place] [address] Provider, External 07/25/2025 Orders Only External Location [address] [place] [address] Provider, External 07/22/2025 8:45 AM EDT Office Visit [facility] Urology [address], [address] [place] [address] Dyllan Paul MD Ureteral stone (Primary Dx) 07/22/2025 6:57 AM EDT - 07/22/2025 11:59 PM EDT Hospital Encounter [facility] Radiology [address] [place] [address] Renal calculi Discharge Disposition: Home or Self Care 07/22/2025 Travel 07/18/2025 Telephone [facility] Urology [address], [address] [place] [phone] Dyllan Paul MD HCN Clinical Concern/Question 07/15/2025 Telephone [facility] Urology [address], [address] [place] [address] Dyllan Paul MD HCN Clinical Concern/Question 07/09/2025 Telephone [facility] [address] [place] [address] Dyllan Paul MD 07/07/2025 Patient Outreach POPULATION HEALTH [address] [facility] [place], [address] [place] [address] Wendy Card LPN TCM 07/03/2025 5:25 PM EDT Anesthesia Event [facility] OPERATING ROOM [address] [place] [address] Anand Pedraza MD Carney Tinsley, Amanda S, NURSING HOME ASSISTANT, DNP 07/03/2025 4:23 PM EDT - 07/03/2025 5:08 PM EDT Surgery [facility]ATING [facility] [address] [place] [address] Dyllan Paul MD CYSTOSCOPY, WITH URETERAL STENT INSERTION [33943 (CPT )] 07/03/2025 Travel 06/30/2025 Patient Outreach POPULATION [place] [id number] [facility] [address] [place] [address] Marlin Martinez, RN Link 06/29/2025 Travel 06/28/2025 9:28 PM EDT - 07/04/2025 2:50 PM EDT Hospital Encounter [facility] Inpatient [address] [place] [address] Rg Coleman MD Cruz, Angelo A, MD Aziz, MD Kalyan Reyes Muhammad Fahad, MD Sweigart, Joseph R, MD Andika, Reynold, MD Febrile illness (Primary Dx); Hypotension, unspecified hypotension type; Right ureteral stone; Cirrhosis of liver with ascites, unspecified hepatic cirrhosis type (CMS/HCC) Discharge Disposition: Home or Self Care 06/28/2025 Travel 06/28/2025 Telephone [facility] Urology [address], 2[address] [place] [address] Eugene Ruggiero MD 06/27/2025 Telephone [facility] Mult[facility]cology [facility] [address] [place] [address] Dyllan Paul MD [facility] Care 06/24/2025 Travel 06/22/2025 Travel 06/20/2025 Travel 06/18/2025 Refill [facility] Transplant Center [address] [place] [address] Virginia Campa MD Esophageal varices without bleeding, unspecified esophageal varices type (CMS/HCC) 06/17/2025 Travel 06/16/2025 Travel 06/15/2025 Travel 06/14/2025 Travel 06/12/2025 2:42 PM EDT Anesthesia Event [facility]PERATING RO[facility] [address] [place] [address] Afshin Reece MD Zimmerman, Bayli N, DO 06/12/2025 12:35 PM EDT - 06/12/2025 5:30 PM EDT Surgery [facility] [address] [place] [address] Dyllan Paul MD PROSTATECTOMY, RADICAL, ROBOT-ASSISTED [00412 (CPT )] 06/12/2025 10:20 AM EDT - 06/25/2025 7:12 PM EDT Hospital Encounter [facility] Inpatient [address] [place] [address] Dyllan Paul MD Prostate CA (CMS/HCC) (Primary [...] Travel 06/06/2025 9:30 AM EDT Pre-Admission Testing [facility] Pre-op Clinic [address] [address] 06/06/2025 Travel 06/05/2025 Travel 06/03/2025 Telephone [facility] Pre-op Clinic [address], [address] [place] [address] Lanre Franklin MD 05/20/2025 Telephone [facility] Urology [address], 2nd [place] [phone] Dyllan Paul MD HCN Clinical Concern/Question from [...] any time in the past 12 m [facility], were you homeless or living in a chcf (including now)? No 07/28/2025 [facility] Utilities Answer Date Recorded In the past 12 months has [facility] [employer], gas, oil, or water company threatened to [...] drink first t rafy in the morning ([employer]) to steady your nerves or to get [...] 08/22/2025 9:00 AM EDT Office Visit [facility] Nephrology[facility] Mineral Metabolism [address] , [address] [place] [address] Kathia Watkins MD [address] [place] [address] 08/28/2025 7:30 AM EDT Hospital Encounter [facility] RO[facility] [address] [place] [address] Dyllan Paul MD [address] [facility] [address] [place] [address] 08/28/2025 7:30 AM EDT Anesthesia Event [facility]PERATING ROOM [address] [place] [address] Paige Starkey, TORREY [address] [facility] [address] [place] [address] 08/28/2025 7:30 AM EDT - 08/28/2025 9:15 AM EDT Surgery [facility] [address] [place] [address] Dyllan Paul MD [address] [address] URETEROSCOPY, WITH LASER LITHOTRIPSY [[id number] (CPT )] 09/03/2025 9:20 AM EDT Office Visit [facility] Medicine Specialties [address], [address] [place] [address] Richi Awad MD [address] [place] [address] Scheduled Procedures Name Priority Associated Diagnoses Date/Ti me URETEROSCOPY, WITH LASER LITHOTRIPSY Ureteral stone 08/28/2025 7:30 AM EDT Health Maintenance Due Date Last Done Comments [facility]-/Child/Adol SDOH Screenings 1955 [facility]-DTaP,Tdap,and Td Vaccines (1 [...] [facility]-Zoster Vaccines (1 of 2) 12/24/2016 10/29/2016 [id number] Vaccine ( - season) 2025 09/15/2021, 02/17/2021, 01/20/2021 [facility]-Influenza Vaccine [...] [employer] Implanted Type Area Respiratory Services Manager Device Identifier Shelf Expiration Date Model / Serial / Lot Stent Ureteral Double Pigtail Pos 6fr 24cm - [id number] - [id number] Implanted:Qty: 1 on 07/03/2025 by Dyllan Paul MD at [facility] Stent Right: Ureter [id number] 02/12/2027 [id number] / [id number] / Procedures Procedure Name Priority Date/Time [...] ANESTHESIA PLACEHOLDER Routine 2024 5:33 PM EDT MT AN ELECTIVE ENDOTRACHEAL AIRWAY Routine 07/03/2025 5:33 PM EDT MT OPEN BLADDER,REMV CALCULUS 07/03/2025 5:10 PM EDT Right ureteral stone Special Needs Cmax MT CYSTOSCOPY,INSERT URETERAL STENT 07/03/2025 5:10 PM EDT [...] CREATININE, RANDOM URINE Routine 2:16 PM EDT SODIUM, URINE, RANDOM Routine [...] UNSOLICITED RESULTS Routine 06/18/2025 12:29 PM EDT MT CRITICAL CARE, E/M 30-74 MINUTES Routine 06/18/2025 9:49 AM EDT Prostate CA (CMS/HCC) Alcohol use disorder Leukocytosis, unspecified type Severe obesity (BMI 35.0-39.9) with comorbidity (CMS/[facility]) SCC (squamous cell carcinoma), leg, left Renal [...] PANEL, ARTERIAL Timed 2024 8:55 AM EDT MT CRITICAL CARE, E/M 30-74 MINUTES Routine 06/17/2025 8:36 AM EDT Prostate CA (CMS/HCC) Alcohol use disorder On mechanically assisted ventilation (CMS/[facility]) Leukocytosis, unspecified type Hyperbilirubinemi a Electrolyte abnormality [...] UNSOLICITED RESULTS Routine 06/16/2025 11:40 AM EDT MT CRITICAL CARE, E/M 30-74 MINUTES Routine 06/16/2025 [...] RANDOM, PLASMA Routine 06/15/2025 11:38 AM EDT MT CRITICAL CARE, E/M 30-74 MINUTES Routine 06/15/2025 [...] PM EDT END TIDAL CO2 MONITORING Routine 8:00 PM EDT BLOOD GAS PANEL, ARTERIAL Timed 2024 6:07 PM EDT VENTILATOR - ADULT Routine 06/14/2025 3:26 PM EDT VENTILATOR - ADULT Routine 06/14/2025 3:26 PM EDT BLOOD GAS PANEL, ARTERIAL Timed 2024 12:09 PM EDT MT CRITICAL CARE, E/M 30-74 MINUTES Routine 06/14/2025 [...] PANEL, ARTERIAL Timed 2024 11:30 AM EDT MT CRITICAL CARE, ADDL 30 MIN Routine 06/13/2025 [...] PANEL, ARTERIAL Routine 2024 10:47 PM EDT MT CRITICAL CARE, ADDL 30 MIN Routine 06/12/2025 10:22 PM EDT Prostate CA (CMS/HCC) MT CRITICAL CARE, ADDL 30 MIN Routine 06/12/2025 10:22 PM EDT Prostate CA (CMS/HCC) MT CRITICAL CARE, ADDL 30 MIN Routine 06/12/2025 [...] TIDAL CO2 MONITORING Routine 9:07 PM EDT VENTILATOR - ADULT Routine [...] ANESTHESIA PLACEHOLDER Routine 2024 2:50 PM EDT MT AN ELECTIVE ENDOTRACHEAL AIRWAY Routine 06/12/2025 2:50 PM EDT MT LAP,PROSTATECTOMY,RADICAL ,W/NERVE SPARE,INCL ROBOTIC 06/12/2025 2:26 PM [...] - 99 mg/dL 07/31/2025 10:15 AM EDT [facility] Comment:Accuracy of [...] for testing. Comment 07/31/2025 10:15 AM EDT HEALTHCARE LAB Shoulder Joiner ID Roger Ninfa D 07/31/2025 10:15 AM EDT [employer] [facility] Device ID [id number] 07/31/2025 10:15 AM EDT HEALTHCARE LAB Specimen Type POC Capillary 07/31/2025 10:15 AM EDT [employer] [facility] Blood Capillary blood specimen / Unknown 07/31/2025 10:12 AM EDT 07/31/2025 10:15 AM EDT Pro Estrada MD LAB POINT OF CARE TE ST DOCKED DEVICE UNSOLICITED RESULTS Final Result [facility] [address] [place] [address] * (ABNORMAL) Prothrombin Time/INR (07/31/2025 4:37 AM EDT) Only the most recent of12 resultswithin the time period is included. Prothrombin Time 22.3(H) 12.0 - 14.3 sec 07/31/2025 4:59 AM EDT HEALTHCARE LAB INR 1.9(H) 0.9 - 1.1 07/31/2025 4:59 AM EDT HEALTHCARE LAB Blood Venous blood [...] INR 2.5 to 3.5 Prevention of recurrent MS INR 2.5 to 3.5 us Pro Estrada MD LAB BLOOD ORDERABLES Final Resul t [facility] [address] [place] [address] * (ABNORMAL) CBC and differential (07/31/2025 4:37 AM EDT) Only the most recent of10 resultswithin the time period is included. WBC Count 7.07 3.70 - 10.30 10*3/uL LAB HEMATOLOGY METHOD 07/31/2025 4:48 AM EDT [facility] RBC Count 3.14(L) 4.60 - 6.10 10*6/uL LAB HEMATOLOGY METHOD 07/31/2025 4:48 AM EDT [facility] HGB 9.9(L) 13.7 - 17.5 g/dL LAB HEMATOLOGY METHOD 07/31/2025 4:48 AM EDT [facility] HCT 28.9(L) 40.0 - 51.0 % LAB HEMATOLOGY METHOD 07/31/2025 4:48 AM EDT [facility] Platelet Count 84(L) 155 - 369 10*3/uL LAB HEMATOLOGY METHOD 07/31/2025 4:48 AM EDT [facility] MCV 92 79 - 98 fL LAB HEMATOLOGY METHOD 07/31/2025 4:48 AM EDT [facility] MCH 31.5 26.0 - 32.0 pg LAB HEMATOLOGY METHOD 07/31/2025 4:48 AM EDT [facility] MCHC 34.3 30.7 - 35.5 g/dL LAB HEMATOLOGY METHOD 07/31/2025 4:48 AM EDT [facility] RDW 15.3(H) 11.5 - 14.5 % LAB HEMATOLOGY METHOD 07/31/2025 4:48 AM EDT [facility] MPV 11.5 8.8 - 12.5 fL LAB HEMATOLOGY METHOD 07/31/2025 4:48 AM EDT [facility] nRBC 0.0 <=0.0 per 100 WBCs LAB HEMATOLOGY METHOD 07/31/2025 4:48 AM EDT [facility] Differential Type Automated LAB HEMATOLOGY METHOD 07/31/2025 4:48 AM EDT [facility] Neutrophils % 48 % LAB HEMATOLOGY METHOD 07/31/2025 4:48 AM EDT [facility] Lymphocytes % 36 % LAB HEMATOLOGY METHOD 07/31/2025 4:48 AM EDT [facility] Monocytes % 11 % LAB HEMATOLOGY METHOD 07/31/2025 4:48 AM EDT [facility] Eosinophils % 4 % LAB HEMATOLOGY METHOD 07/31/2025 4:48 AM EDT [facility] Basophils % 1 % LAB HEMATOLOGY METHOD 07/31/2025 4:48 AM EDT [facility] Immature Granulocytes % 0 % LAB HEMATOLOGY METHOD 07/31/2025 4:48 AM EDT [facility] Neutrophils Absolute 3.45 1.60 - 6.10 10*3/uL LAB HEMATOLOGY METHOD 07/31/2025 4:48 AM EDT [facility] Lymphocytes Absolute 2.53 1.20 - 3.90 10*3/uL LAB HEMATOLOGY METHOD 07/31/2025 4:48 AM EDT [facility] Monocytes Absolute 0.74 0.30 - 0.90 10*3/uL LAB HEMATOLOGY METHOD 07/31/2025 4:48 AM EDT [facility] Eosinophils Absolute 0.27 0.00 - 0.50 10*3/uL LAB HEMATOLOGY METHOD 07/31/2025 4:48 AM EDT [facility] Basophils Absolute 0.05 0.00 - 0.10 10*3/uL LAB HEMATOLOGY METHOD 07/31/2025 4:48 AM EDT [facility] Immature Granulocytes Absolute 0.03 0.00 - 0.06 10*3/uL LAB HEMATOLOGY METHOD 07/31/2025 4:48 AM EDT [facility] Blood Venous blood specimen / Unknown Venipuncture / Unknown 07/31/2025 4:37 AM EDT 07/31/2025 4:42 AM EDT Narrative [facility] - 07/31/2025 4:48 AM EDT Therapeutic decision making should be based on absolute values, rather than percentages. us Pro Estrada MD LAB BLOOD ORDERABLES Final Resul t Performing Organization Address City/[facility] de Phone Number [facility] [address] [place] [address] * (ABNORMAL) Magnesium (07/31/2025 4:37 AM EDT) Only the most recent of22 resultswithin the time period is included. Magnesium, Plasma 1.7(L) 1.9 - 2.4 mg/dL 07/31/2025 5:07 AM EDT [facility] Blood Venous blood specimen / Unknown Venipuncture / Unknown 07/31/2025 4:37 AM EDT 07/31/2025 4:42 AM EDT us Pro Estrada MD LAB BLOOD ORDERABLES Final Resul t Performing Organization Address [facility] de Phone Number [facility] [address] [place] [address] * (ABNORMAL) Comprehensive metabolic panel (07/31/2025 4:37 AM EDT) Only the most recent of19 resultswithin the time period is included. Glucose, Plasma 91 74 - 99 mg/dL 07/31/2025 5:07 AM EDT [facility] BUN, Plasma 24(H) 8 - 23 mg/dL 07/31/2025 5:07 AM EDT HEALTHCARE LAB Creatinine, Plasma 1.37(H) 0.70 - 1.20 mg/dL 07/31/2025 5:07 AM EDT [facility]ALTHCARE LAB BUN/Creatinine Ratio 18 07/31/2025 5:07 AM EDT [facility] Sodium, Plasma 139 136 - 145 mmol/L 07/31/2025 5:07 AM EDT [facility] Potassium, Plasma 3.4(L) 3.6 - 4.9 mmol/L 07/31/2025 5:07 AM EDT HEALTHCARE LAB Chloride, Plasma 112(H) 97 - 107 mmol/L 07/31/2025 5:07 AM EDT [facility]ALTH[facility]ARE LAB CO2, Plasma 18(L) 22 - 29 mmol/L 07/31/2025 5:07 AM EDT [facility] Anion Gap 9 6 - 16 mmol/L 07/31/2025 5:07 AM EDT [facility] Total Calcium, Plasma 8.6(L) 8.9 - 10.2 mg/dL 07/31/2025 5:07 AM EDT [facility] Total Protein 4.6(L) 6.3 - 7.9 g/dL 07/31/2025 5:07 AM EDT [facility] Albumin, Plasma 2.9(L) 3.5 - 5.2 g/dL 07/31/2025 5:07 AM EDT [facility] AST, Plasma 49 10 - 50 U/L 07/31/2025 5:07 AM EDT [facility] ALT, Plasma 19 10 - 50 U/L 07/31/2025 5:07 AM EDT [facility] Alkaline Phosphatase, Plasma 97 40 - 115 U/L 07/31/2025 5:07 AM EDT [facility] Total Bilirubin, Plasma 1.3(H) 0.2 - 1.1 mg/dL 07/31/2025 5:07 AM EDT [facility] eGFRcr 55.5 mL/min/1.7 3m*2 07/31/2025 5:07 AM EDT [facility] Comment:Reported eGFRcr in m L/min/1.73m2 is based the CKD-EPI 2020 equation that does not use a race coefficient. Blood Venous blood specimen / Unknown Venipuncture / Unknown 07/31/2025 4:37 AM EDT 07/31/2025 4:42 AM EDT us Pro Estrada MD LAB BLOOD ORDERABLES Final Resul t [facility] [address] [place] [address] * (ABNORMAL) Hemoglobin and Hematocrit, Blood (07/30/2025 9:08 AM EDT) Only the most recent of3 resultswithin the time period is included. HGB 10.2(L) 13.7 - 17.5 g/dL LAB HEMATOLOGY METHOD 07/30/2025 9:46 AM EDT [facility] HCT 30.0(L) 40.0 - 51.0 % LAB HEMATOLOGY METHOD 07/30/2025 9:46 AM EDT [facility] Blood Venous blood specimen / Unknown Venipuncture / Unknown 07/30/2025 9:08 AM EDT 07/30/2025 9:42 AM EDT Pro Estrada MD LAB BLOOD ORDERABLES Final Resul t Performing Organization Address [facility] Co de Phone Number [facility] [address] [place] [address] * Hepatitis B Surface Antibody, Quantitative (07/28/2025 3:22 AM EDT) Hepatitis B Surface Antibody, Quantitative <8.00 NonReactiv e: <8, Grayzone: 8 - <12, Reactive: >= 12 mIU/mL 07/28/2025 9:33 AM EDT [facility] Comment: Nonreactive. Individual is considered not immune to HBV infection. Blood Venous blood specimen / Unknown Venipuncture / Unknown 07/28/2025 3:22 AM EDT 07/28/2025 4:31 AM EDT Estiven Martinez MD LAB BLOOD ORDERABLES Final Re sult Performing Organization Address [facility] de Phone Number [facility] [address] [place] [address] * Hepatitis A Antibody IgG (07/28/2025 3:22 AM EDT) Hepatitis A Antibody IgG Negative Negative 07/28/2025 9:33 AM EDT [facility] Blood Venous blood specimen / Unknown Venipuncture / Unknown 07/28/2025 3:22 AM EDT 07/28/2025 4:31 AM EDT Estiven Martinez MD LAB BLOOD ORDERABLES Final Re sult Performing Organization Address [facility] Co de Phone Number [facility] [address] [place] [address] * Hepatitis B Core Total Antibody IgG,IgM (07/28/2025 3:22 AM EDT) Pathologist [facility] Hepatitis B Core Total Antibody IgG,IgM Negative Negative 07/28/2025 9:33 AM EDT [facility] Blood Venous blood specimen / Unknown Venipuncture / Unknown 07/28/2025 3:22 AM EDT 07/28/2025 4:31 AM EDT Estiven Martinez MD LAB BLOOD ORDERABLES Final Re sult [facility] [address] [place] [address] * ECG Adult (07/27/2025 11:22 PM EDT) Only the most recent of2 resultswithin the time period is included. Pathologist [facility] EKG DIAGNOSIS CLASS Normal MUSE ECG Ventricular Rate 62 BPM MUSE ECG Atrial Rate 62 BPM MUSE ECG MT Interval 196 ms MUSE ECG QRSD Interval 92 ms MUSE ECG QT Interval 442 ms MUSE ECG QTC Interval 448 ms MUSE ECG P [place] 46 degrees MUSE ECG R [place] 46 degrees MUSE ECG T Wave [place] 63 degrees MUSE ECG Diagnosis Poor data quality, interpretation may be adversely affected MUSE ECG Diagnosis Normal sinus rhythm MUSE ECG Diagnosis Possible Normal ECG MUSE ECG Diagnosis Recommend repeat ECG MUSE ECG Diagnosis Confirmed by You Rodrigues ([id number]) on 07/28/2025 7:31:55 AM MUSE ECG 07/27/2025 11:2 2 PM EDT 07/28/2025 7:31 AM EDT Lizzie Cadena MD ECG ORDERABLES Final Resul t MUSE ECG * (ABNORMAL) Hemoglobin, Blood (07/27/2025 6:02 PM EDT) Pathologist [facility] HGB 9.5(L) 13.7 - 17.5 g/dL LAB HEMATOLOGY METHOD 07/27/2025 6:18 PM EDT [facility] Blood Venous blood specimen / Unknown Venipuncture / Unknown 07/27/2025 6:02 PM EDT 07/27/2025 6:16 PM EDT Estiven Martinez MD LAB BLOOD ORDERABLES Final Re sult [facility] [address] [place] [address] * Type and Screen (07/27/2025 6:02 PM EDT) Only the most recent of3 resultswithin the time period is included. ABO/Rh O Positive 07/27/2025 4:13 PM EDT BLOOD BANK Antibody Screen Negative 07/27/2025 4:13 PM EDT BLOOD BANK Specimen Expiration 07/30/2025 23:59 07/27/2025 4:13 PM EDT BLOOD BANK Blood Venous blood specimen / Unknown Venipuncture / Unknown 07/27/2025 6:02 PM EDT 07/27/2025 6:14 PM EDT Estiven Martinez MD LAB BLOOD BANK TEST ORDERABLE S Final Result Performing Organization Address City/[facility]/ZIP Co de Phone Number BLOOD BANK [address] [place] [address], [place] * US Abdomen Doppler Limited (07/27/2025 [...] Christi Palacios MD on 07/27/2025 12:25 PM Estiven Martinez MD [facility] US PROCEDURES Final Resul t * Phosphatidylethanol (PEth), Whole Blood, Quantitative (07/27/2025 12:25 AM EDT) Only the most recent of3 resultswithin the time period is included. PEth 16:0/18:2 (PLPEth) <10 ng/mL 07/30/2025 10:48 AM EDT [facility] ([employer] [facility]) PEth 16:0/18:1 (POPEth) <10 ng/mL 07/30/2025 10:48 AM EDT [facility] ([facility]) EER Peth See Note 07/30/2025 10:48 AM EDT [facility] ([facility]) PEth Interpretation See Comment 07/30/2025 10:48 AM EDT [facility] ([facility]) Blood Venous blood specimen / Unknown Venipuncture / Unknown 07/27/2025 12:25 AM EDT 07/27/2025 12:44 AM EDT Narrative [facility] ([facility]) - 07/30/2025 10:48 AM EDT PEth 16:0/18:1 (POPEth) Less than 10 ng/mL............Not detected Less than 20 ng/mL............Abstinence or light alcohol consumption 20 - 200 ng/mL................Moderate alcohol consumption Greater than 200 ng/mL........Heavy alcohol consumption or chronic alcohol use (Reference: Nichole Means and Mike Lowe 2018 J. Forensic Sci) Reference ranges are not well established. Authorized individuals can access the [facility] Enhanced Report with an [facility] Connect account using the following link. Your local lab can assist you in obtaining the patient report if you don't have a Connect account. [email or web address] Phosphatidylethanol (PEth) is a group of phospholipids [...] developed and its performance characteristics determined by [facility]. It has not been cleared or approved by the U.S. Food and Drug Administration. This test was performed in a CLIA-certified laboratory and is intended for clinical purposes. Performed By: [facility] [address] [place] [address] Truck Mechanic Apprentice: Sotero Banuelos MD, PhD CLIA Number: [id number] Estiven Martinez MD LAB REF LAB BLOOD AND FLUID O RD Final Result Performing Organization Address [facility] de Phone Number [facility] ([facility]) [address] [place] [address] * (ABNORMAL) Phosphorus (07/27/2025 12:25 AM EDT) Only the most recent of17 resultswithin the time period is included. Phosphorus, Plasma 5.7(H) 2.5 - 4.5 mg/dL 07/27/2025 1:06 AM EDT [facility] Blood Venous blood specimen / Unknown Venipuncture / Unknown 07/27/2025 12:25 AM EDT 07/27/2025 12:45 AM EDT Felton Wolfe APRN, DNP LAB BLOOD ORDERABLES Fin al Result Performing Organization Address [facility] de Phone Number [facility] [address] [place] [address] * Urine [place] Panel (07/26/2025 6:45 PM EDT) Only the most recent of2 resultswithin the time period is included. Pathologist [facility] Extra Reflex urine culture not indicated 07/26/2025 8:01 PM EDT [facility] Urine Urine specimen obtained by clean catch procedure / Unknown Non-blood Collection / Unknown 07/26/2025 6:45 PM EDT 07/26/2025 6:56 PM EDT Felton Wolfe APRN, DNP LAB URINE ORDERABLES Fin al Result Performing Organization Address [facility] de Phone Number [facility] [address] [place] [address] * Urinalysis Microscopic Examination (07/26/2025 6:45 PM EDT) Only the most recent of5 resultswithin the time period is included. Urine Urine specimen obtained by clean catch procedure / Unknown Non-blood Collection / Unknown 07/26/2025 6:45 PM EDT 07/26/2025 6:55 PM EDT us Felton Wolfe APRN, DNP LAB URINE ORDERABLES Fin al Result Performing Organization Address City/[facility] de Phone Number [facility] [address] [place] [address] * Multi Drug Resistance Test (07/26/2025 6:45 PM EDT) Only the most recent of3 resultswithin the time period is included. Culture No growth at day 1 07/27/2025 8:57 PM EDT [facility] Swab (Nares and Cari Rectal) Non-blood Collection / Unknown 07/26/2025 6:45 PM EDT 07/26/2025 6:55 PM EDT Narrative [facility] - 07/27/2025 8:57 PM EDT This test was developed and its performance characteristics determined by the [facility]. Although the media is FDA-approved, it is not FDA-approved for all specimen types submitted. The FDA has determined that such clearance or approval is not necessary. This test is used for surveillance purposes. It should not be regarded as investigational or for research. The [facility] is certified under the Clinical Laboratory Improvement Amendments of 1988 (CLIA-88) as qualified to perform high complexity clinical laboratory testing. us Felton Wolfe APRN, DNP LAB MICROBIOLOGY - GENER AL ORDERABLES Final Result Performing Organization Address City/[facility] de Phone Number [facility] [address] [place] [address] * Urea Nitrogen, Random Urine (07/26/2025 6:45 PM EDT) Only the most recent of2 resultswithin the time period is included. Urea Nitrogen, Urine 369 mg/dL 07/26/2025 8:47 PM EDT [facility] Urine Urine specimen obtained by clean catch procedure / Unknown Non-blood Collection / Unknown 07/26/2025 6:45 PM EDT 07/26/2025 6:55 PM EDT Felton Wolfe NURSING HOME ASSISTANT, DNP LAB URINE ORDERABLES Fin al Result Performing Organization Address City/[facility] Co de Phone Number [facility] [address] [place] [address] * Sodium, Random, Urine (07/26/2025 6:45 PM EDT) Only the most recent of3 resultswithin the time period is included. Sodium, Urine 30 mmol/L 07/26/2025 9:10 PM EDT [facility] Urine Urine specimen obtained by clean catch procedure / Unknown Non-blood Collection / Unknown 07/26/2025 6:45 PM EDT 07/26/2025 6:55 PM EDT Estiven Martinez MD LAB URINE ORDERABLES Final Re sult Performing Organization Address [facility] Co de Phone Number [facility] [address] [place] [address] * Potassium, Random, Urine (07/26/2025 6:45 PM EDT) Only the most recent of2 resultswithin the time period is included. Potassium, Urine 41 mmol/L 07/26/2025 8:47 PM EDT [facility] Urine Urine specimen obtained by clean catch procedure / Unknown Non-blood Collection / Unknown 07/26/2025 6:45 PM EDT 07/26/2025 6:55 PM EDT Estiven Martinez MD LAB URINE ORDERABLES Final Re sult Performing Organization Address [facility]/ZIP Co de Phone Number [facility] [address] [place] [address] * Osmolality, urine (07/26/2025 6:45 PM EDT) Only the most recent of2 resultswithin the time period is included. Osmolality, Urine 347 50 - 1,200 mOsm/kg 07/26/2025 8:38 PM EDT [facility] Urine Urine specimen obtained by clean catch procedure / Unknown Non-blood Collection / Unknown 07/26/2025 6:45 PM EDT 07/26/2025 6:55 PM EDT Felton Wolfe APRN, DNP LAB URINE ORDERABLES Fin al Result Performing Organization Address City/[facility] Co de Phone Number [facility] [address] [place] [address] * Creatinine, Random, Urine (07/26/2025 6:45 PM EDT) Only the most recent of3 resultswithin the time period is included. Creatinine, Urine 217 mg/dL 07/26/2025 7:19 PM EDT [facility] Urine Urine specimen obtained by clean catch procedure / Unknown Non-blood Collection / Unknown 07/26/2025 6:45 PM EDT 07/26/2025 6:55 PM EDT us Felton Wolfe APRN, LUDMILA LAB URINE ORDERABLES Fin al Result Performing Organization Address [facility] de Phone Number [facility] [address] [place] [address] * Chloride, Random Urine (07/26/2025 6:45 PM EDT) Chloride, Urine 24 mmol/L 9:10 PM EDT [facility] Urine Urine specimen obtained by clean catch procedure / Unknown Non-blood Collection / Unknown 07/26/2025 6:45 PM EDT 07/26/2025 6:55 PM EDT Felton Wolfe APRN, DNP LAB URINE ORDERABLES Fin al Result Performing Organization Address City/[facility] de Phone Number [facility] [address] [place] [address] * (ABNORMAL) Urinalysis with reflex microscopic (Culture NOT Included) (07/26/2025 6:45 PM EDT) Only the most recent of5 resultswithin the time period is included. Color, Urine Other LAB URINALYSIS - AUTOMATED METHOD 07/26/2025 7:09 PM [facility] Clarity, Urine Cloudy LAB URINALYSIS - AUTOMATED METHOD 07/26/2025 7:09 PM [facility] Spec Daisy, Urine 1.020 1.005 - 1.030 LAB URINALYSIS - AUTOMATED METHOD 07/26/2025 7:09 PM [facility] pH, Urine 7.0 5.0 - 8.0 LAB URINALYSIS - AUTOMATED METHOD 07/26/2025 7:09 PM [facility] Protein, Urine >=300(A) Negative mg/dL LAB URINALYSIS - AUTOMATED METHOD 07/26/2025 7:09 PM [facility] Glucose, Urine Negative Negative mg/dL LAB URINALYSIS - AUTOMATED METHOD 07/26/2025 7:09 PM [facility] Ketones, Urine Trace(A) Negative mg/dL LAB URINALYSIS - AUTOMATED METHOD 07/26/2025 7:09 PM [facility] Blood, Urine Large(A) Negative LAB URINALYSIS - AUTOMATED METHOD 07/26/2025 7:09 PM [facility] Bilirubin, Urine Large(A) Negative LAB URINALYSIS - AUTOMATED METHOD 07/26/2025 7:09 PM [facility] Urobilinogen, Urine 2.0(A) 0.2 to 1.0 mg/dL LAB URINALYSIS - AUTOMATED METHOD 07/26/2025 7:09 PM [facility] Leukocytes, Urine Moderate(A) Negative LAB URINALYSIS - AUTOMATED METHOD 07/26/2025 7:09 PM [facility] Nitrite, Urine Positive(A) Negative LAB URINALYSIS - AUTOMATED METHOD 07/26/2025 7:09 PM [facility] RBC, Urine >50(A) 0 to 3 /HPF 07/26/2025 7:09 PM [facility] Comment:This result was prev iously suppressed from the chart. WBC, Urine 6 - 10(A) 0 to 5 /HPF 07/26/2025 7:09 PM [facility] Comment:This result was prev iously suppressed from the chart. Squamous Epithelial Cells 0 - 2 0 to 5 /HPF 07/26/2025 7:09 PM [facility] Comment:This result was prev iously suppressed from the chart. Hyaline Casts 0 - 2 0 to 5 /LPF 07/26/2025 7:09 PM EDT [facility] Comment:This result was prev iously suppressed from the chart. Bacteria, Urine Present Negative 07/26/2025 7:09 PM EDT [facility] Comment:This result was prev iously suppressed from the chart. Urine Urine specimen obtained by clean catch procedure / Unknown Non-blood Collection / Unknown 07/26/2025 6:45 PM EDT 07/26/2025 6:55 PM EDT Narrative [facility] - 07/26/2025 7:09 PM EDT Urinalysis dipstick results may be inaccurate due to specimen color or an interfering substance in the specimen. Performed by manual method us Felton Wolfe NURSING HOME ASSISTANT, DNP LAB URINE ORDERABLES Fin al Result [facility] [address] [place] [address] * US Renal Complete (07/26/2025 4:49 PM [...] on 07/26/2025 5:04 PM Estiven Martinez MD [facility] US PROCEDURES Final Resul t * Vitamin B1, Whole Blood (07/26/2025 11:08 AM EDT) VITAMIN B1, WHOLE BLOOD 103 70 - 180 nmol/L 07/31/2025 6:54 AM EDT [facility] Blood Venous blood specimen / Unknown Venipuncture / Unknown 07/26/2025 11:08 AM EDT 07/26/2025 11:17 AM EDT Narrative [facility]) - 07/31/2025 6:54 AM EDT INTERPRETIVE INFORMATION: Vitamin B1, Whole Blood This assay measures the concentration of thiamine diphosphate (TDP), the primary active form of vitamin B1. Approximately 90 percent of vitamin B1 present in whole blood is TDP. Thiamine and thiamine monophosphate, which comprise the remaining 10 percent, are not measured. This test was developed and its performance characteristics determined by [facility]. It has not been cleared or approved by the [place] Food and Drug Administration. This test was performed in a CLIA certified laboratory and is intended for clinical purposes. Performed By: [facility] [address] [place] [address] Truck Mechanic Apprentice: Sotero Banuelos MD, PhD CLIA Number: [id number] Felton Wolfe APRN, LUDMILA LAB BLOOD ORDERABLES Fin al Result Performing Organization Address City/[facility]/ZIP Co de Phone Number [facility] [address] [place] [address] * Osmolality, Serum (07/26/2025 11:08 AM EDT) Only the most recent of3 resultswithin the time period is included. Pathologist [facility] Osmolality, Serum 299 280 - 301 mOsm/Kg 07/26/2025 11:48 PM EDT [facility] Blood Venous blood specimen / Unknown Venipuncture / Unknown 07/26/2025 11:08 AM EDT 07/26/2025 11:17 AM EDT Estiven Martinez MD LAB BLOOD ORDERABLES Final Re sult [facility] [address] [place] [address] * (ABNORMAL) Basic metabolic panel (07/26/2025 11:08 AM EDT) Only the most recent of9 resultswithin the time period is included. Glucose, Plasma 78 74 - 99 mg/dL 07/26/2025 11:41 AM EDT [facility] BUN, Plasma 68(H) 8 - 23 mg/dL 07/26/2025 11:41 AM EDT [facility] Creatinine, Plasma 6.63(H) 0.70 - 1.20 mg/dL 07/26/2025 11:41 AM EDT [facility] BUN/Creatinine Ratio 10 07/26/2025 11:41 AM EDT [facility] Sodium, Plasma 132(L) 136 - 145 mmol/L 07/26/2025 11:41 AM EDT [facility] Potassium, Plasma 4.9 3.6 - 4.9 mmol/L 07/26/2025 11:41 AM EDT [facility] Chloride, Plasma 102 97 - 107 mmol/L 07/26/2025 11:41 AM EDT [facility] CO2, Plasma 17(L) 22 - 29 mmol/L 07/26/2025 11:41 AM EDT [facility] Anion Gap 13 6 - 16 mmol/L 07/26/2025 11:41 AM EDT [facility] Total Calcium, Plasma 8.1(L) 8.9 - 10.2 mg/dL 07/26/2025 11:41 AM EDT [facility] eGFRcr 8.4 mL/min/1.7 3m*2 07/26/2025 11:41 AM EDT [facility] Comment:Reported eGFRcr in m L/min/1.73m2 is based the CKD-EPI 2020 equation that does not use a race coefficient. Blood Venous blood specimen / Unknown Venipuncture / Unknown 07/26/2025 11:08 AM EDT 07/26/2025 11:17 AM EDT Felton Wolfe APRN, DNP LAB BLOOD ORDERABLES Fin al Result Performing Organization Address City/[facility]/ZIP Co de Phone Number [facility] [address] [place] [address] * (ABNORMAL) TSH Reflex FT4 (07/26/2025 5:33 AM EDT) Thyroid Stimulating Hormone, Plasma 4.24(H) 0.40 - 4.20 uIU/mL 07/26/2025 6:09 AM EDT [facility] Blood Venous blood specimen / Unknown Venipuncture / Unknown 07/26/2025 5:33 AM EDT 07/26/2025 5:37 AM EDT Felton Wolfe APRN, DNP LAB BLOOD ORDERABLES Fin al Result [facility] [address] [place] [address] * (ABNORMAL) Procalcitonin, Plasma (07/26/2025 5:33 AM EDT) Only the most recent of5 resultswithin the time period is included. Procalcitonin, Plasma 1.40(H) <0.09 ng/mL 07/26/2025 6:09 AM EDT [facility] Blood Venous blood specimen / Unknown Venipuncture / Unknown 07/26/2025 5:33 AM EDT 07/26/2025 5:37 AM EDT [facility] - 07/26/2025 6:09 AM EDT Procalcitonin [...] predict 28 day mortality risk. Please consult [email or web address] for more information. Test performed at [facility]. Felton Wolfe APRN, LUDMILA LAB BLOOD ORDERABLES Fin al Result [facility] [address] [place] [address] * (ABNORMAL) Iron & Total Iron Binding Capacity, Plasma (Includes Transferrin) (07/26/2025 5:33 AM EDT) Iron, Plasma 29(L) 50 - 170 ug/dL 07/26/2025 8:12 AM EDT [facility] Transferrin, Plasma 130(L) 200 - 360 mg/dL 07/26/2025 8:12 AM EDT [facility] Total Iron Binding Capacity, Plasma 163(L) 240 - 450 ug/mL 07/26/2025 8:12 AM EDT [facility] Transferrin Saturation 18 14 - 50 % 07/26/2025 8:12 AM EDT [facility] Blood Venous blood specimen / Unknown Venipuncture / Unknown 07/26/2025 5:33 AM EDT 07/26/2025 5:37 AM EDT us Felton Spencer Aiden HIRSCH, LUDMILA LAB BLOOD ORDERABLES Fin al Result Performing Organization Address City/[facility]/ZIP Co de Phone Number [facility] [address] [place] [address] * Free T4, Plasma (07/26/2025 5:33 AM EDT) Only the most recent of2 resultswithin the time period is included. Free T4, Plasma 0.8 0.8 - 1.7 ng/dL 07/26/2025 6:40 AM EDT [facility] Blood Venous blood specimen / Unknown Venipuncture / Unknown 07/26/2025 5:33 AM EDT 07/26/2025 5:37 AM EDT Felton Tj Aiden HIRSCH, LUDMILA LAB BLOOD ORDERABLES Fin al Result Performing Organization Address City/[facility] Co de Phone Number [facility] [address] [place] [address] * Folate (07/26/2025 5:33 AM EDT) Folate, Serum 14.8 >4.6 ng/mL 07/26/2025 9:13 AM EDT [facility] Blood Venous blood specimen / Unknown Venipuncture / Unknown 07/26/2025 5:33 AM EDT 07/26/2025 5:36 AM EDT Felton Tj Aiden HIRSCH, LUDMILA LAB BLOOD ORDERABLES Fin al Result [facility] [address] [place] [address] * Ferritin (07/26/2025 5:33 AM EDT) Ferritin, Serum 315 20 - 400 ng/mL 07/26/2025 9:13 AM EDT [facility] Blood Venous blood specimen / Unknown Venipuncture / Unknown 07/26/2025 5:33 AM EDT 07/26/2025 5:36 AM EDT us Felton Wolfe APRN, LUDMILA LAB BLOOD ORDERABLES Fin al Result Performing Organization Address [facility] de Phone Number [facility] [address] [place] [address] * (ABNORMAL) Vitamin B12 (07/26/2025 5:33 AM EDT) [facility] Vitamin B12, Serum 1,433(H) 210 - 1,033 pg/mL 07/26/2025 9:13 AM EDT [facility] Blood Venous blood specimen / Unknown Venipuncture / Unknown 07/26/2025 5:33 AM EDT 07/26/2025 5:36 AM EDT us Felton Wolfe APRN, LUDMILA LAB BLOOD ORDERABLES Fin al Result Performing Organization Address [facility] Phone Number [facility] [address] [place] [address] * Cortisol (07/26/2025 5:33 AM EDT) [facility] Cortisol 11.90 Before 10am: 3.7 - 19.4. After 5pm: 2.9 - 17.3 ug/dL 07/26/2025 12:38 PM EDT [facility] Comment:Testing performed on [facility], standardized against [facility] Reference Standard concentration values assigned by LC-MS/MS and verified by BCR 192 and BCR 193 certified reference materials. Blood Venous blood specimen / Unknown Venipuncture / Unknown 07/26/2025 5:33 AM EDT 07/26/2025 5:36 AM EDT us Felton Wolfe APRN, [facility] LAB REF LAB BLOOD AND FL UID ORD Final Result Performing Organization Address [facility] de Phone Number [facility] [address] [place] [address] * BNP (07/26/2025 3:25 AM EDT) Only the most recent of3 resultswithin the time period is included. [facility] N-Terminal, PROBNP, Plasma 685 0 - 899 pg/mL 07/26/2025 3:56 AM EDT [facility] Blood Venous blood specimen / Unknown Venipuncture / Unknown 07/26/2025 3:25 AM EDT 07/26/2025 3:27 AM EDT Do RODRIGUEZ LAB BLOOD ORDERABLES Final Result Performing Organization Address City/[facility] Co de Phone Number [facility] [address] [place] [address] * (ABNORMAL) Sedimentation Rate, Automated (07/26/2025 3:25 AM EDT) Only the most recent of3 resultswithin the time period is included. Pathologist [facility] Sedimentation Rate 25(H) <20 mm/hr 2024 4:59 AM EDT [facility] Blood Venous blood specimen / Unknown Venipuncture / Unknown 07/26/2025 3:25 AM EDT 07/26/2025 3:27 AM EDT Felton Wolfe APRN, DNP LAB BLOOD ORDERABLES Fin al Result Performing Organization Address [facility] de Phone Number [facility] [address] [place] [address] * (ABNORMAL) C-Reactive Protein, Plasma (Use only for Muscle/Bone/Joint Infections) (07/26/2025 3:25 AM EDT) Only the most recent of3 resultswithin the time period is included. CRP, Plasma 49.2(H) <=8.0 mg/L 07/26/2025 5:08 AM EDT [facility] Blood Venous blood specimen / Unknown Venipuncture / Unknown 07/26/2025 3:25 AM EDT 07/26/2025 3:27 AM EDT Narrative [facility] - 07/26/2025 5:08 AM EDT This CRP test is appropriate for assessment of infection, systemic inflammation and/or tissue injury. To assess cardiovascular disease risk order high sensitivity CRP (CRPH). us Felton Wolfe NURSING HOME ASSISTANT, DNP LAB BLOOD ORDERABLES Fin al Result [facility] [address] [place] [address] * (ABNORMAL) Blood gas panel, venous (07/26/2025 3:25 AM EDT) Only the most recent of2 resultswithin the time period is included. pH, Venous 7.38 7.32 - 7.43 LAB HEMATOLOGY METHOD 07/26/2025 3:28 AM EDT [facility] pCO2, Venous 33(L) 40 - 55 mmHg LAB HEMATOLOGY METHOD 07/26/2025 3:28 AM EDT [facility] pO2, Venous 34 25 - 40 mmHg LAB HEMATOLOGY METHOD 07/26/2025 3:28 AM EDT [facility] SO2, Measured, Venous 59(L) 65 - 80 % LAB HEMATOLOGY METHOD 07/26/2025 3:28 AM EDT [facility] Base Excess, Venous -4.6(L) -2.0 - 3.0 mmol/L LAB HEMATOLOGY METHOD 07/26/2025 3:28 AM EDT [facility] Bicarbonate, Calculated, Venous 20(L) 22 - 26 mmol/L LAB HEMATOLOGY METHOD 07/26/2025 3:28 AM EDT [facility] Hematocrit, Whole Blood 33.5(L) 40.0 - 51.0 % LAB HEMATOLOGY METHOD 07/26/2025 3:28 AM EDT [facility] Sodium, Whole Blood 131(L) 136 - 145 mmol/L LAB HEMATOLOGY METHOD 07/26/2025 3:28 AM EDT [facility] Potassium, Whole Blood 4.5 3.6 - 4.9 mmol/L LAB HEMATOLOGY METHOD 07/26/2025 3:28 AM EDT [facility] Chloride, Whole Blood 104 97 - 107 mmol/L LAB HEMATOLOGY METHOD 07/26/2025 3:28 AM EDT [facility] Glucose, Whole Blood 70(L) 74 - 99 mg/dL LAB HEMATOLOGY METHOD 07/26/2025 3:28 AM EDT [facility] Lactate, Venous, Whole Blood 1.8 0.5 - 2.2 mmol/L LAB HEMATOLOGY METHOD 07/26/2025 3:28 AM EDT [facility] Ionized Calcium, Whole Blood 4.3(L) 4.6 - 5.1 mg/dL LAB HEMATOLOGY METHOD 07/26/2025 3:28 AM EDT [facility] Blood Venous blood specimen / Unknown Venipuncture / Unknown 07/26/2025 3:25 AM EDT 07/26/2025 3:26 AM EDT Do RODRIGUEZ LAB BLOOD ORDERABLES Final Result Performing Organization Address City/[facility]/ZIP Co de Phone Number [facility] [address] [place] [address] * CT OUTSIDE IMAGES (07/25/2025 6:09 PM EDT) Anatomical Region Laterality Modality Computed Tomogra phy 07/25/2025 6:09 PM EDT External Provider IMG CT PROCEDURES Final Result * XR OUTSIDE IMAGES (07/25/2025 4:55 PM EDT) Anatomical Region Laterality Modality Radiographic Julia ging 07/25/2025 4:55 PM EDT External Provider IMG XR PROCEDURES Final Result * Urine Culture - Clinic Collect (07/22/2025 10:26 AM EDT) Only the most recent of2 resultswithin the time period is included. Culture <10,000 CFU/mL Mixed urogenital, fecal, or skin kelsi present. 07/23/2025 8:34 AM EDT [facility] Urine Urine specimen obtained by clean catch procedure / Unknown Non-blood Collection / Unknown 07/22/2025 10:26 AM EDT 07/22/2025 10:49 AM EDT Dyllan Paul MD LAB MICROBIOLOGY - GENERAL OR DERABLES Final Result Performing Organization Address City/[facility]/ZIP Co de Phone Number [facility] [address] [place] [id number] * CT Urogram (07/22/2025 7:53 AM EDT) [...] following split bolus administration of IV contrast, [id number], 150 mL. Reformatted images in the coronal [...] LAB HEMATOLOGY METHOD 07/04/2025 5:48 AM EDT [facility] RBC Count 3.46(L) 4.60 - 6.10 10*6/uL LAB HEMATOLOGY METHOD 07/04/2025 5:48 AM EDT [facility] HGB 11.3(L) 13.7 - 17.5 g/dL LAB HEMATOLOGY METHOD 07/04/2025 5:48 AM EDT [facility] HCT 33.0(L) 40.0 - 51.0 % LAB HEMATOLOGY METHOD 07/04/2025 5:48 AM EDT [facility] Platelet Count 114(L) 155 - 369 10*3/uL LAB HEMATOLOGY METHOD 07/04/2025 5:48 AM EDT [facility] MCV 95 79 - 98 fL LAB HEMATOLOGY METHOD 07/04/2025 5:48 AM EDT [facility] MCH 32.7(H) 26.0 - 32.0 pg LAB HEMATOLOGY METHOD 07/04/2025 5:48 AM EDT [facility] MCHC 34.2 30.7 - 35.5 g/dL LAB HEMATOLOGY METHOD 07/04/2025 5:48 AM EDT [facility] RDW 15.7(H) 11.5 - 14.5 % LAB HEMATOLOGY METHOD 07/04/2025 5:48 AM EDT [facility] MPV 11.0 8.8 - 12.5 fL LAB HEMATOLOGY METHOD 07/04/2025 5:48 AM EDT [facility] nRBC 0.0 <=0.0 per 100 WBCs LAB HEMATOLOGY METHOD 07/04/2025 5:48 AM EDT [facility] Blood Venous blood specimen / Unknown Venipuncture / Unknown 07/04/2025 5:26 AM EDT 07/04/2025 5:37 AM EDT us Quentin Anderson MD LAB BLOOD ORDERABLES Final Result [facility] [address] [place] [address] * [place] Less than 1 Hour Intraoperative (07/03/2025 6:15 PM EDT) Narrative IMAGING - 07/03/2025 6:17 PM EDT Images were obtained for surgical purposes. See Dyllan Paul's surgical note in the patient's chart for the findings. us Dyllan Paul MD IMG FLUOROSCOPY PROCEDURES Fi nal Result Performing Organization Address City/[facility]/ZIP Co de Phone Number IMAGING * Calculi (Kidney Stone) Analysis (07/03/2025 6:12 PM EDT) Only the most recent of2 resultswithin the time period is included. Calculi Mass 807 mg 07/08/2025 6:16 PM EDT [facility] ([facility]) Calculi Description See Note 07/08/2025 6:16 PM EDT [facility] ([facility]) Calculi Composition See Note 07/08/2025 6:16 PM EDT [facility] ([facility]) Calculus Urinary bladder structure / Unknown 07/03/2025 6:12 PM EDT 07/03/2025 6:35 PM EDT Comment:Pre-op diagnosis: Right ureteral stone [N20.1] Narrative [facility] ([facility]) - 07/08/2025 6:16 PM EDT Specimen consists [...] composition determined by FTIR analysis. Performed By: [facility] [address] [place] [address] Truck Mechanic Apprentice: Sotero Banuelos MD, PhD CLIA Number: [id number] us Dyllan Paul MD LAB REF LAB BLOOD AND FLUID O RD Final Result [facility] ([facility]) [address] [place] [id number] * MT AN ELECTIVE ENDOTRACHEAL AIRWAY, PB ANESTHESIA PLACEHOLDER (07/03/2025 5:33 PM EDT) Narrative Lary Bloom CRNA, DNP - 07/03/2025 5:33 PM EDT Lary Bloom CRNA, DNP 07/03/2025 5:47 PM Airway Date/Time: 07/03/2025 5:33 PM Reason: elective Airway not difficult General Information and Staff Patient location during procedure: OR INFECTION CONTROL PRACTITIONER: Lary Bloom CRNA, DNP Performed: INFECTION CONTROL PRACTITIONER Patient Condition Indications for airway management: anesthesia [...] LAB HEMATOLOGY METHOD 06/30/2025 3:25 PM EDT [facility] Blood Venous blood specimen / Unknown Venipuncture / Unknown 06/30/2025 3:11 PM EDT 06/30/2025 3:23 PM EDT Lizzie Biggs MD LAB BLOOD ORDERABLES Fi nal Result Performing Organization Address [facility] [place] [address] * Vancomycin, random (06/30/2025 12:48 PM EDT) Only the most recent of3 resultswithin the time period is included. Vancomycin, Random, Plasma 13.3 ug/mL 06/30/2025 3:07 PM EDT [facility] Blood Venous blood specimen / Unknown Venipuncture / Unknown 06/30/2025 12:48 PM EDT 06/30/2025 12:58 PM EDT Jennifer Mcgrath MD LAB BLOOD ORDERABLES Final Resu lt Performing Organization Address [facility] [place] [address] * (ABNORMAL) Cystatin C (06/30/2025 6:01 AM EDT) Only the most recent of3 resultswithin the time period is included. Cystatin C 1.58(H) 0.61 - 0.95 mg/L 06/30/2025 6:40 AM EDT [facility] Blood Venous blood specimen / Unknown Venipuncture / Unknown 06/30/2025 6:01 AM EDT 06/30/2025 6:10 AM EDT Lizzie Biggs MD LAB BLOOD ORDERABLES Fi nal Result Performing Organization Address City/[facility]/ZIP Co de Phone Number [facility] [address] [place] [address] * (ABNORMAL) Ammonia, Plasma (06/30/2025 6:01 AM EDT) Only the most recent of6 resultswithin the time period is included. Ammonia 64(H) 11 - 51 umol/L 06/30/2025 6:38 AM EDT [facility] Comment:Improper specimen marquez ndling may falsely increase results. Blood Venous blood specimen / Unknown Venipuncture / Unknown 06/30/2025 6:01 AM EDT 06/30/2025 6:08 AM EDT us Homerocrow Gutierrez APRN, DNP LAB BLOOD ORDERAB LES Final Result Performing Organization Address [facility] Co de Phone Number [facility] [address] [place] [address] * US Abdomen Focused Region Liver, Pancreas, [...] on 06/29/2025 3:58 PM Lizzie Biggs MD [facility] PROCEDURES Final Result * Methicillin Resistant Staphylococcus aureus (MRSA) by PCR (06/29/2025 9:39 AM EDT) Methicillin Resistant Staphylococcus aureus (MRSA) by PCR Not Detected Not Detected 06/29/2025 12:04 PM EDT [facility] Swab Both anterior nares / Unknown Non-blood Collection / Unknown 06/29/2025 9:39 AM EDT 06/29/2025 10:18 AM EDT Narrative [facility] - 06/29/2025 12:04 PM [...] complexity clinical laboratory testing. Homero Gutierrez APRN, L[place] LAB MICROBIOLOGY - GENERAL ORDERABLES Final Result [facility] [address] [place] [address] * (ABNORMAL) Wound Culture and Gram Stain (06/29/2025 9:39 AM EDT) CULTURE READING WOUND Light Growth 07/02/2025 12:29 PM EDT [facility] CULTURE READING WOUND Staphylococcus epidermidis(A) 07/02/2025 12:29 PM EDT [facility] Comment: This isolate has been identified using the FDA Approved [employer] [place] System The organism value for this result has been updated. These results have been appended to the previously preliminary verified report. Edited result: Previously reported as Gram positive cocci on 07/01/2025 at 0744 EDT. Gram Stain Result Numerous Polymorphonuclear leukocytes(A) 07/02/2025 12:29 PM EDT [facility] Gram Stain Result Rare Gram negative rods(A) 07/02/2025 12:29 PM EDT [facility] Swab Skin structure / Unknown Non-blood Collection / Unknown 06/29/2025 9:39 AM EDT 06/29/2025 2:57 PM EDT us Homero Gutierrez APRN, DNP LAB MICROBIOLOGY - GENERAL ORDERABLES Final Result Performing Organization Address City/[facility]/[place] [address] * (ABNORMAL) Ionized calcium, whole blood (06/29/2025 6:52 AM EDT) Only the most recent of3 resultswithin the time period is included. Ionized Calcium, Whole Blood 4.1(L) 4.6 - 5.1 mg/dL LAB HEMATOLOGY METHOD 06/29/2025 7:12 AM EDT [facility] Blood Venous blood specimen / Unknown Venipuncture / Unknown 06/29/2025 6:52 AM EDT 06/29/2025 6:55 AM EDT us Homero Gutierrez APRN, DNP LAB BLOOD ORDERAB LES Final Result Performing Organization Address City/[facility]/[place] [address] * (ABNORMAL) GGT (06/29/2025 6:52 AM EDT) GGT, Plasma 116(H) 8 - 61 U/L 06/29/2025 8:35 AM EDT [facility] Blood Venous blood specimen / Unknown Venipuncture / Unknown 06/29/2025 6:52 AM EDT 06/29/2025 6:56 AM EDT us Homero Gutierrez APRN, DNP LAB BLOOD ORDERAB LES Final Result Performing Organization Address City/[facility]/ZIP Co de Phone Number [facility] [address] [place] [address] * SEND SELIN MESSAGE (06/29/2025 2:00 AM EDT) Urine Urine specimen obtained by clean catch procedure / Unknown Non-blood Collection / Unknown 06/29/2025 2:00 AM EDT 06/29/2025 2:22 AM EDT Rg Coleman MD LAB URINE ORDERABLES Final Res ult Performing Organization Address City/[facility] Co de Phone Number [facility] [address] [place] [address] * (ABNORMAL) Troponin T, High Sensitivity, 2 Hour, Plasma (06/28/2025 11:57 PM EDT) Only the most recent of2 resultswithin the time period is included. Troponin T, High Sensitivity, 2 Hour 22(H) <19 ng/L 06/29/2025 12:22 AM EDT [facility] Troponin Delta 2 <10 ng/L 06/29/2025 12:22 AM EDT [facility] Troponin Delta Interpretation Not Significant 06/29/2025 12:22 AM EDT [facility] Comment:Not Significant. No acute change in troponin observed between the baseline and 2 hour samples. Blood Venous blood specimen / Unknown Venipuncture / Unknown 06/28/2025 11:57 PM EDT 06/29/2025 12:03 AM EDT Rg Coleman MD LAB BLOOD ORDERABLES Final Res ult Performing Organization Address City/[facility] Co de Phone Number [facility] [address] [place] [address] * CT Angio Abdomen Pelvis (06/28/2025 11:11 [...] Total DLP (Dose-Length Product): 2949.46 mGy.cm (accession [id number]), 2949.46 mGy.cm (accession [id number]). Please note: The reported value represents the [...] Total DLP (Dose-Length Product): 2949.46 mGy.cm (accession [id number]),2949.46 mGy.cm (accession [id number]). Please note: The reported valuerepresents the total [...] Total DLP (Dose-Length Product): 2949.46 mGy.cm (accession [id number]), 2949.46 mGy.cm (accession [id number]). Please note: The reported value represents the [...] Total DLP (Dose-Length Product): 2949.46 mGy.cm (accession [id number]),2949.46 mGy.cm (accession [id number]). Please note: The reported valuerepresents the total [...] IMG CT PROCEDURES Final Result * (ABNORMAL) Troponin now and 120 min (06/28/2025 9:39 PM EDT) Only the most recent of2 resultswithin the time period is included. [facility] Troponin T, High Sensitivity, 0 Hour 24(H) <19 ng/L 06/28/2025 10:15 PM EDT [facility] Blood Venous blood specimen / Unknown Venipuncture / Unknown 06/28/2025 9:39 PM EDT 06/28/2025 9:47 PM EDT us Rg Coleman MD LAB BLOOD ORDERABLES Final Res ult [facility] [address] [place] [address] * Blood Culture (Aerobic/Anaerobet Set) (06/28/2025 9:39 PM EDT) Only the most recent of4 resultswithin the time period is included. [facility] Culture No growth at day 5 07/03/2025 11:02 PM EDT [facility] Blood Structure of left hand / Unknown Venipuncture / Unknown 06/28/2025 9:39 PM EDT 06/28/2025 10:04 PM EDT us Rg Coleman MD LAB MICROBIOLOGY - GENERAL ORD ERABLES Final Result Performing Organization Address City/[facility]/[place] [address] * (ABNORMAL) APTT (06/28/2025 9:39 PM EDT) Only the most recent of2 resultswithin the time period is included. aPTT 70(H) 25 - 35 sec 06/28/2025 10:05 PM EDT [facility] Blood Venous blood specimen / Unknown Venipuncture / Unknown 06/28/2025 9:39 PM EDT 06/28/2025 9:47 PM EDT us Rg Coleman MD LAB BLOOD ORDERABLES Final Res ult Performing Organization Address [facility]/ZIP Co de Phone Number [facility] [address] [place] [address] * (ABNORMAL) Lipase (06/28/2025 9:39 PM EDT) Lipase, Plasma 91(H) 19 - 63 U/L 06/29/2025 7:03 AM EDT [facility] Blood Venous blood specimen / Unknown Venipuncture / Unknown 06/28/2025 9:39 PM EDT 06/28/2025 9:47 PM EDT Homero Gutierrez APRN, L[place]ILA LAB BLOOD ORDERAB LES Final Result Performing Organization Address [facility]/[place] [address] * (ABNORMAL) POCT venous blood gas gem (06/28/2025 9:33 PM EDT) Only the most recent of2 resultswithin the time period is included. pH, Venous 7.50(H) 7.32 - 7.43 06/28/2025 9:35 PM EDT [facility] pCO2, Venous 28(L) 40 - 55 mm Hg 06/28/2025 9:35 PM EDT [facility] pO2, Venous 66(H) 25 - 40 mm Hg 06/28/2025 9:35 PM EDT [facility] SO2, Venous 96(H) 65 - 80 % 06/28/2025 9:35 PM EDT [facility] Base Excess/Deficit, Venous -0.3 -2 - 3 mmol/L 06/28/2025 9:35 PM EDT [facility] HCO3, Venous 21.8(L) 22 - 26 mmol/L 06/28/2025 9:35 PM EDT [facility] Hemoglobin, Venous 12.8(L) 13.7 - 17.5 g/dL 06/28/2025 9:35 PM EDT [facility] Hematocrit, Venous 38.0(L) 40.0 - 51.0 % 06/28/2025 9:35 PM EDT [facility] Sodium, Venous 129(L) 136 - 145 mmol/L 06/28/2025 9:35 PM EDT [facility] Potassium, Venous 3.6 3.6 - 4.9 mmol/L 06/28/2025 9:35 PM EDT [facility] Comment:Hemolyzed, result ma y be falsely increased. POCT Chloride, Venous 98 97 - 107 mmol/L 06/28/2025 9:35 PM EDT [facility] Glucose, Venous 114(H) 74 - 99 mg/dL 06/28/2025 9:35 PM EDT [facility] Ionized Calcium, Venous 4.2(L) 4.6 - 5.1 mg/dL 06/28/2025 9:35 PM EDT [facility] Lactate, Venous 2.5(H) 0.5 - 2.2 mmol/L 06/28/2025 9:35 PM EDT [facility] Body Temperature 37.0 Celsius 06/28/2025 9:35 PM EDT [facility] pH, Temp Corrected, Venous 7.50(H) 7.32 - 7.43 06/28/2025 9:35 PM EDT [facility] pCO2, Temp Corrected, Venous 28(L) 40 - 55 mm Hg 06/28/2025 9:35 PM EDT [facility] pO2, Temp Corrected, Venous 66(H) 25 - 40 mm Hg 06/28/2025 9:35 PM EDT [facility] Shoulder Joiner ID SHIRA Herzog 06/28/2025 9:35 PM EDT [facility] Blood, Venous Whole blood specimen / Unknown 06/28/2025 9:33 PM EDT 06/28/2025 9:35 PM EDT us Generic Provider Poct LAB POINT OF CARE TEST DOCKED DEVICE UNSOLICITED RESULTS Final Result [facility] [address] [place] [address] * VAS US Venous Duplex Lower Extremity [...] COMMUNICATION: Preliminary findings discussed with Mick Campoverde, with RB. Preliminary report signed by Shanique [...] and augmentable flow signal. Procedure Note Scout Giblert MD - 06/24/2025 CLINICAL INDICATION: SOB +/- [...] - 4.9 mmol/L 06/24/2025 1:21 PM EDT [facility] Blood Venous blood specimen / Unknown Venipuncture / Unknown 06/24/2025 12:35 PM EDT 06/24/2025 12:58 PM EDT us Camden Hilario MD LAB BLOOD ORDERABLES Final Result [facility] [address] [place] [address] * Peripheral blood smear, pathologist interpretation (06/24/2025 2:14 AM EDT) Clinical Diagnosis, Peripheral Smear Leukocytosis, recent surgery (prostatectomy for prostate cancer), history of cirrhosis LAB HEMATOLOGY METHOD 06/24/2025 3:21 PM EDT [facility] Interpretation , Peripheral Smear Moderate leukocytosis with neutrophilia, left shift and toxic granulations. Few atypical small lymphocytes with mature condensed chromatin. Mild anemia with anisocytosis. Mild thrombocytopeni a. See comment 06/24/2025 3:21 PM EDT [facility] Pathologist Signature, Peripheral Smear 06/24/2025 3:21 PM EDT [facility] Comment:Reviewed by: Sue Stapleton MD Blood Venous blood specimen / Unknown Venipuncture / Unknown 06/24/2025 2:14 AM EDT 06/24/2025 2:19 AM EDT Narrative [facility] - 06/24/2025 3:21 PM EDT The lymphocyte morphology is concerning for chronic lymphoproliferative disorder. A flow cytometry immunophenotyping is suggested, if clinically indicated. Dyllan Paul MD LAB PATHOLOGY ORDERABLES Francia l Result Performing Organization Address [facility] Co de Phone Number [facility] [address] [place] [address] * Clostridiodes (Clostridium) difficile PCR (06/23/2025 9:17 AM EDT) C difficile PCR toxin B gene DNA Result Not Detected Not Detected 06/23/2025 11:44 AM EDT [facility] Stool Rectum structure / Unknown Non-blood Collection / Unknown 06/23/2025 9:17 AM EDT 06/23/2025 10:27 AM EDT Narrative [facility] - 06/23/2025 11:44 AM [...] OR DERABLES Final Result Performing Organization Address [facility] Co de Phone Number [facility] [address] [place] [address] * CT Angio Pulmonary Embolism (06/22/2025 2:26 [...] Fluid 1.35 mg/dL 06/20/2025 3:10 PM EDT [facility] Fluid Drainage fluid specimen / Unknown 06/20/2025 1:43 PM EDT 06/20/2025 2:15 PM EDT Narrative [facility] - 06/20/2025 3:10 PM EDT Reference Values: No established reference interval. Results should be interpreted in comparison to the concentration in blood and in conjunction with the clinical context. This test was developed and its performance characteristics determined by [facility]. The U.S. Food and Drug [...] FLUIDS AND STOOLS OR DERABLES Final Result [facility] [address] [place] [address] * [place] Cystogram (06/20/2025 10:01 AM EDT) [...] with the final edited report. Drafted by Jaime Alvarez MD on 06/20/2025 11:20 AM Final [...] radiograph from June 14, 2025. FINDINGS: On corporate communications specialist images, there are 3 rounded calcifications overlying [...] 2025. Abdominal radiograph from 2024. FINDINGS: On corporate communications specialist images, there are 3 rounded calcifications overlying [...] 1.1(H) <=0.3 mg/dL 06/19/2025 6:48 PM EDT [facility] Comment:Hemolyzed, result ma y be falsely decreased. Alkaline Phosphatase, Plasma 179(H) 40 - 115 U/L 06/19/2025 6:48 PM EDT [facility] Total Bilirubin, Plasma 2.5(H) 0.2 - 1.1 mg/dL 06/19/2025 6:48 PM EDT [facility] Albumin, Plasma 2.7(L) 3.5 - 5.2 g/dL 06/19/2025 6:48 PM EDT [facility] Total Protein 5.1(L) 6.3 - 7.9 g/dL 06/19/2025 6:48 PM EDT [facility] ALT, Plasma 33 10 - 50 U/L 06/19/2025 6:48 PM EDT [facility] AST, Plasma 59(H) 10 - 50 U/L 06/19/2025 6:48 PM EDT [facility] Comment:Hemolyzed, result ma y be falsely increased. Blood Venous blood specimen / Unknown Venipuncture / Unknown 06/19/2025 1:00 AM EDT 06/19/2025 1:04 AM EDT us Anna Armas MD LAB BLOOD ORDERABLES Final Resul t [facility] [address] [place] [address] * [place] CRITICAL CARE, E/M 30-74 MINUTES (06/18/2025 9:49 [...] LAB HEMATOLOGY METHOD 06/18/2025 5:59 AM EDT [facility] pCO2, Arterial 36 32 - 45 mmHg LAB HEMATOLOGY METHOD 06/18/2025 5:59 AM EDT [facility] pO2, Arterial 63(L) >70 mmHg LAB HEMATOLOGY METHOD 06/18/2025 5:59 AM EDT [facility] SO2, Measured, Arterial 94 94 - 98 % LAB HEMATOLOGY METHOD 06/18/2025 5:59 AM EDT [facility] Base Excess, Arterial 3.3(H) -2.0 - 3.0 mmol/L LAB HEMATOLOGY METHOD 06/18/2025 5:59 AM EDT [facility] Bicarbonate, Calculated, Arterial 27(H) 22 - 26 mmol/L LAB HEMATOLOGY METHOD 06/18/2025 5:59 AM EDT [facility] Hematocrit, Whole Blood 37.9(L) 40.0 - 51.0 % LAB HEMATOLOGY METHOD 06/18/2025 5:59 AM EDT [facility] Sodium, Whole Blood 153(H) 136 - 145 mmol/L LAB HEMATOLOGY METHOD 06/18/2025 5:59 AM EDT [facility] Potassium, Whole Blood 4.3 3.6 - 4.9 mmol/L LAB HEMATOLOGY METHOD 06/18/2025 5:59 AM EDT [facility] Chloride, Whole Blood 119(H) 97 - 107 mmol/L LAB HEMATOLOGY METHOD 06/18/2025 5:59 AM EDT [facility] Glucose, Whole Blood 138(H) 74 - 99 mg/dL LAB HEMATOLOGY METHOD 06/18/2025 5:59 AM EDT [facility] Ionized Calcium, Whole Blood 5.1 4.6 - 5.1 mg/dL LAB HEMATOLOGY METHOD 06/18/2025 5:59 AM EDT [facility] Lactate, Arterial, Whole Blood 1.6 0.5 - 1.6 mmol/L LAB HEMATOLOGY METHOD 06/18/2025 5:59 AM EDT [facility] Blood Arterial blood specimen / Unknown Arterial Puncture / Unknown 06/18/2025 5:47 AM EDT 06/18/2025 5:57 AM EDT us Michelle Iniguez APRN LAB BLOOD ORDERABLES Final R esult [facility] [address] [place] [address] * CT Head wo IV Contrast (06/17/2025 [...] IMG CT PROCEDURES Final Res ult * MT CRITICAL CARE, E/M 30-74 MINUTES (06/17/2025 8:36 [...] Melissa Fleming MD on 06/17/2025 9:45 AM us Corry Doss NURSING HOME ASSISTANT, DNP IMG XR PROCEDURES Fi nal Result * Thyroid Stimulating Hormone, Plasma (06/17/2025 12:24 AM EDT) Thyroid Stimulating Hormone, Plasma 1.19 0.40 - 4.20 uIU/mL 06/17/2025 8:59 AM EDT [facility] Blood Venous blood specimen / Unknown Venipuncture / Unknown 06/17/2025 12:24 AM EDT 06/17/2025 12:36 AM EDT us Lillian RODRIGUEZ LAB BLOOD ORDERABLES Final Result [facility] [address] [place] [address] * MT CRITICAL CARE, E/M 30-74 MINUTES (06/16/2025 10:30 [...] mean PAP 34 mmHg CINTIA ISCV PA MT(ACCEL) 35.0 mmHg CINTIA ISCV PA acc slope [...] is no recent study available for direct [id number]-[id number]-[id number] comparison. Left Ventricle Based on the linear [...] is no recent study available for direct [id number]-[id number] comparison. Raymond Katz APRN CV ECHO PROCEDURES Final Resu lt * Triglycerides (06/16/2025 4:24 AM EDT) Triglycerides, Plasma 103 <150 mg/dL 06/16/2025 5:02 AM EDT [facility] Comment: Triglyceride Reference Range (age >17 years): Desirable: <150 mg/dL Borderline high: 150 to 199 mg/dL High: 200 to 499 mg/dL Very high: >499 mg/dL Increased risk of pancreatitis: >1000 mg/dL Fasting greater than or equal to 12 hours? No 06/16/2025 5:02 AM EDT [facility] Blood Venous blood specimen / Unknown Venipuncture / Unknown 06/16/2025 4:24 AM EDT 06/16/2025 4:34 AM EDT us Raymond Katz APRN LAB BLOOD ORDERABLES Final Re sult [facility] [address] [place] [address] * Hemoglobin A1c (06/16/2025 4:24 AM EDT) Hemoglobin A1c 5.4 <5.7 % 06/16/2025 12:01 PM EDT [facility] Blood Venous blood specimen / Unknown Venipuncture / Unknown 06/16/2025 4:24 AM EDT 06/16/2025 4:31 AM EDT Narrative [facility] - 06/16/2025 12:01 PM EDT HA1C Interpretive Data: Diagnosis of Diabetes: Diabetic > or = 6.5% Pre-diabetic 5.7 to 6.4% Non-diabetic < or = 5.6% Glycemic Targets for Type I and Type II Diabetics: Non- Adults <7.0% Adults <6.0% Children and Adolescents <7.5% Source: [place] [employer]. Standards of medical care in diabetes,2017. Diabetes Care.2017:40 (suppl 1):S1-S135. us Lillian RODRIGUEZ LAB BLOOD ORDERABLES Final Result Performing Organization Address City/[facility]/ZIP Co de Phone Number [facility] [address] [place] [address] * Streptococcus pneumoniae and Legionella Urinary Antigen (06/15/2025 2:53 PM EDT) Legionella pneumophila serogroup 1 Antigen Result (Urine) Negative Negative 06/16/2025 6:33 AM EDT [facility] Streptococcus pneumoniae Antigen Result (Urine) Negative Negative 06/16/2025 6:33 AM EDT [facility] Urine Urine specimen obtained by clean catch procedure / Unknown Non-blood Collection / Unknown 06/15/2025 2:53 PM EDT 06/15/2025 3:17 PM EDT us Corry Doss NURSING HOME ASSISTANT, DNP LAB MICROBIOLOGY - G ENERAL ORDERABLES Final Result [facility] [address] [place] [address] * Mycoplasma Pneumoniae DNA By PCR (06/15/2025 2:49 PM EDT) Mycoplasma pneumoniae Source aspirate 06/23/2025 9:22 PM EDT [facility] ([facility]) Mycoplasma pneumoniae by PCR Not Detected 06/23/2025 9:22 PM EDT [facility] ([facility]) Aspirate Non-blood Collection / Unknown 06/15/2025 2:49 PM EDT 06/15/2025 3:34 PM EDT Narrative [facility]) - 06/23/2025 9:22 PM EDT NOT DETECTED - A negative result does not rule out the presence of PCR inhibitors in the patient specimen or assay specific nucleic acid in concentrations below the level of detection by the assay. INTERPRETIVE INFORMATION: Mycoplasma pneumoniae by PCR This test was developed and its performance characteristics determined by [employer]. It has not been cleared or approved by the [place] Food and Drug Administration. This test was performed in a CLIA certified laboratory and is intended for clinical purposes. Performed By: [facility] [employer] [address] [place] [address] Truck Mechanic Apprentice: Sotero Banuelos MD, PhD CLIA Number: [id number] Corry Doss APRN, DNP LAB REF LAB BLOOD AN D FLUID ORD Final Result [facility]) [address] [id number] * Nasopharyngeal Respiratory Panel (06/15/2025 2:47 PM EDT) Nasopharyngeal Respiratory PCR Interpretation Not Detected for all analytes Not Detected for all analytes 06/15/2025 5:19 PM EDT [facility] Swab Nasopharyngeal structure / Unknown Non-blood Collection / Unknown 06/15/2025 2:47 PM EDT 06/15/2025 3:18 PM EDT Narrative [facility] - 06/15/2025 5:19 PM [...] Respiratory PCR Panel is performed using the Sn[employer] ePlex instrument. This test is FDA approved for use with Nasopharyngeal swabs only. This test is used for clinical purposes. It should not be regarded as investigational or for research. The [facility] Clinical Microbiology Laboratory is certified under the Clinical Laboratory Improvement Amendments of 1988 (CLIA-88) as qualified to perform high complexity clinical laboratory testing. Corry Doss APRN, [place] LAB MICROBIOLOGY - [facility] ORDERABLES Final Result [facility] [address] [place] [address] * (ABNORMAL) Mycoplasma Pneumoniae Antibody, IgG & IgM (06/15/2025 2:42 PM EDT) Mycoplasma Pneumoniae Antibody IgM 0.11 <=0.76 U/L 06/19/2025 5:44 AM EDT [facility] ([facility]) Mycoplasma Pneumoniae Antibody IgG 0.20(H) <=0.09 U/L 06/19/2025 5:44 AM EDT [facility] ([facility]) Blood Arterial blood specimen / Unknown Arterial Puncture / Unknown 06/15/2025 2:42 PM EDT 06/15/2025 3:02 PM EDT [facility] ([facility]) - 06/19/2025 5:44 AM EDT INTERPRETIVE INFORMATION: [...] more than 12 months post-infection. Performed By: [facility] [address] [place] [id number] Truck Mechanic Apprentice: Sotero Banuelos MD, PhD CLIA Number: [id number] Corry Doss APRN, DNP LAB BLOOD ORDERABLES Final Result [facility] ([facility]) [address] [place], [place] [id number] * [place] CRITICAL CARE, E/M 30-74 MINUTES (06/15/2025 9:09 [...] IN CLINIC/BEDSIDE OR DERABLES Final Result * [place] CRITICAL CARE, E/M 30-74 MINUTES (06/14/2025 9:53 [...] Culture Heavy Growth 06/17/2025 11:03 AM EDT [facility] Culture Mixed upper respiratory kelsi(A) 06/17/2025 11:03 AM EDT [facility] Comment:The organism value f or this result has been updated. These results have been appended to the previously preliminary verified report. Gram Stain Result Fewer than 10 Epithelial cells/LPF(A) 06/17/2025 11:03 AM EDT [facility] Gram Stain Result Greater than 25 WBC/LPF(A) 06/17/2025 11:03 AM EDT [facility] Gram Stain Result Numerous Gram negative rods(A) 06/17/2025 11:03 AM EDT [facility] Gram Stain Result Numerous Gram positive cocci in pairs and chains(A) 06/17/2025 11:03 AM EDT [facility] Gram Stain Result Moderate Gram positive cocci in clusters(A) 06/17/2025 11:03 AM EDT [facility] Aspirate Specimen from endotracheal tube / Unknown Non-blood Collection / Unknown 06/14/2025 8:18 AM EDT 06/14/2025 10:27 AM EDT us Corry Doss APRN, DNP LAB MICROBIOLOGY - G ENERAL ORDERABLES Final Result [facility] [address] [place] [address] * XR Abdomen 1 View (06/14/2025 8:18 [...] - 99 mg/dL 06/13/2025 4:23 PM EDT [facility] BUN, Plasma 31(H) 8 - 23 mg/dL 06/13/2025 4:23 PM EDT [facility] Creatinine, Plasma 2.02(H) 0.70 - 1.20 mg/dL 06/13/2025 4:23 PM EDT [facility] BUN/Creatinine Ratio 15 06/13/2025 4:23 PM EDT [facility] Sodium, Plasma 143 136 - 145 mmol/L 06/13/2025 4:23 PM EDT [facility] Potassium, Plasma 4.7 3.6 - 4.9 mmol/L 06/13/2025 4:23 PM EDT [facility] Chloride, Plasma 108(H) 97 - 107 mmol/L 06/13/2025 4:23 PM EDT [facility] CO2, Plasma 22 22 - 29 mmol/L 06/13/2025 4:23 PM EDT [facility] Anion Gap 13 6 - 16 mmol/L 06/13/2025 4:23 PM EDT [facility] Total Calcium, Plasma 8.2(L) 8.9 - 10.2 mg/dL 06/13/2025 4:23 PM EDT [facility] Phosphorus, Plasma 7.4(H) 2.5 - 4.5 mg/dL 06/13/2025 4:23 PM EDT [facility] Albumin, Plasma 2.6(L) 3.5 - 5.2 g/dL 06/13/2025 4:23 PM EDT [facility] eGFRcr 34.8 mL/min/1.7 3m*2 06/13/2025 4:23 PM EDT [facility] Comment:Reported eGFRcr in m L/min/1.73m2 is based the CKD-EPI 2020 equation that does not use a race coefficient. Blood Venous blood specimen / Unknown Venipuncture / Unknown 06/13/2025 3:35 PM EDT 06/13/2025 3:51 PM EDT us Roshan Haas NURSING HOME ASSISTANT, DNP LAB BLOOD ORDERABLES Fi nal Result [facility] [address] [place] [address] * [place] CRITICAL CARE, ADDL 30 MIN (06/13/2025 10:48 [...] RN - 06/13/2025 4:14 AM EDT Tati Pedroza RN 06/13/2025 4:14 AM Insert peripheral IV [...] Detected Not Detected 06/13/2025 11:46 AM EDT [facility] Swab (Axilla and Groin) Non-blood Collection / Unknown 06/12/2025 10:48 PM EDT 06/12/2025 11:08 PM EDT Narrative [facility] - 06/13/2025 11:46 AM EDT This PCR assay was developed and its performance characteristics determined by [facility] as appropriate for clinical purposes. This assay has not been cleared or approved by the FDA, but is performed in a CLIA regulated laboratory that is qualified to perform high-complexity testing. Result [facility] Dyllan Paul MD LAB MICROBIOLOGY - GENERAL OR DERABLES Final Result [facility] [address] [place] [address] * MT CRITICAL CARE, ADDL 30 MIN, [place] CRITICAL CARE, ADDL 30 MIN, [place] CRITICAL CARE, ADDL 30 MIN (06/12/2025 10:22 [...] 7.31 - 7.42 06/12/2025 9:20 PM EDT [facility] pCO2, Arterial 44 32 - 45 mm Hg 06/12/2025 9:20 PM EDT [facility] pO2, Arterial 81 >70 mm Hg 06/12/2025 9:20 PM EDT [facility] SO2, Arterial 98 94 - 98 % 06/12/2025 9:20 PM EDT [facility] Base Excess, Arterial -2.2(L) -2 - 3 mmol/L 06/12/2025 9:20 PM EDT [facility] HCO3, Arterial 23.7 22 - 26 mmol/L 06/12/2025 9:20 PM EDT [facility] Total Hemoglobin, Arterial, Whole Blood 12.2(L) 13.7 - 17.5 g/dL 06/12/2025 9:20 PM EDT [facility] Hematocrit, Arterial 37.0(L) 40 - 51.0 % 06/12/2025 9:20 PM EDT [facility] Sodium, Arterial 141 136 - 145 mmol/L 06/12/2025 9:20 PM EDT [facility] Potassium, Arterial 3.4(L) 3.6 - 4.9 mmol/L 06/12/2025 9:20 PM EDT [facility] Chloride, Whole Blood 112(H) 97 - 107 mmol/L 06/12/2025 9:20 PM EDT [facility] Glucose, Arterial 129(H) 74 - 99 mg/dL 06/12/2025 9:20 PM EDT [facility] Ionized Calcium, Arterial 4.5(L) 4.6 - 5.1 mg/dL 06/12/2025 9:20 PM EDT [facility] Lactate, Arterial 2.4(H) 0.5 - 1.6 mmol/L 06/12/2025 9:20 PM EDT [facility] Body Temperature 37.0 Celsius 06/12/2025 9:20 PM EDT [facility] pH, Temp Corrected, Arterial 7.34 7.31 - 7.42 06/12/2025 9:20 PM EDT [facility] pCO2, Temp Corrected, Arterial 44 32 - 45 mm Hg 06/12/2025 9:20 PM EDT [facility] pO2, Temp Corrected, Arterial 81 >70 mm Hg 06/12/2025 9:20 PM EDT [facility] Shoulder Joiner ID Dyllan Wong 06/12/2025 9:20 PM EDT [facility] Blood, Arterial Whole blood specimen / Unknown 06/12/2025 9:19 PM EDT 06/12/2025 9:20 PM EDT us Dyllan Paul MD LAB POINT OF CARE TE ST DOCKED DEVICE UNSOLICITED RESULTS Final Result [facility] [address] [place] [address] * Transfuse RBC (06/12/2025 7:16 PM EDT) Only the most recent of2 resultswithin the time period is included. us Afshin Reece MD BLOOD TRANSFUSION ORDERABLES Final Result * ANESTHESIA ULTRASOUND GUIDED (06/12/2025 6:54 PM EDT) Narrative Afshin Reece MD - 06/12/2025 6:54 PM EDT Afshin Reece MD 06/12/2025 7:35 PM Peripheral IV Date/Time: 06/12/2025 6:54 PM Inserted by: Dyllan Wnog DO Placement Needle size: 16 G Location: external jugular Site prep: alcohol Technique: ultrasound guided Attempts: 1 us Afshin Reece MD ANESTHESIA ORDERABLES Final R esult * Prepare Leukocyte Reduced RBC: 4 Units (06/12/2025 6:49 PM EDT) Product Code F4909E91 CH BLOO D BANK Dispense Status Returned CH BLOOD BANK Blood Expiration Date [id number] BLOOD BANK Unit Number [id number] CH B LOOD BANK Product Blood Type 5100 CH BLOOD BANK Blood Type O+ CH BLOOD BANK Crossmatch Compatible CH BLOOD BANK Product Code [id number] CH BLOO D BANK Dispense Status Returned CH BLOOD BANK Blood Expiration Date [id number] BLOOD BANK Unit Number [id number] CH B LOOD BANK Product Blood Type 5100 CH BLOOD BANK Blood Type O+ CH BLOOD BANK Crossmatch Compatible CH BLOOD BANK Product Code [id number] CH BLOO D BANK Dispense Status Transfused CH BLOOD BANK Blood Expiration Date [id number] BLOOD BANK Unit Number [id number] CH B LOOD BANK Product Blood Type 5100 CH BLOOD BANK Blood Type O+ CH BLOOD BANK Crossmatch Compatible CH BLOOD BANK Product Code [id number] BLOO D BANK Dispense Status Transfused CH BLOOD BANK Blood Expiration Date [id number] BLOOD BANK Unit Number [id number] CH B LOOD BANK Product Blood Type 5100 BLOOD BANK Blood Type O+ BLOOD BANK Crossmatch Compatible BLOOD BANK Other Afshin Reece MD BLOOD BANK PRODUCT ORDERABLES Edited Result - Final BLOOD BANK [address] [place] [address], * Surgical Pathology Exam (06/12/2025 6:07 PM EDT) Case Report Surgical Pathology Case: [id number] Authorizing Provider: Dyllan Paul MD Collected: 06/12/2025 1807 Ordering Location: [facility] Received: 06/13/2025 0811 Pathologist: Aliza Daugherty MD Specimens: A) - Other (specify site), Prostate and seminal vesicles - fresh for permanent B) - Other (specify site), Bilateral pelvic lymph nodes - permanent 06/19/2025 10:43 AM EDT [facility] Final Diagnosis A. PROSTATE AND [...] LYMPH NODES (0/8). 06/19/2025 10:43 AM EDT [facility] at 1043 EDT Synoptic [...] Acute and chronic 06/19/2025 10:43 AM EDT [facility] Clinical Information PROSTATE CANCER 06/19/2025 10:43 AM EDT [facility] Gross Description A. PROSTATE AND SEMINAL VESICLES - FRESH FOR PERMANENT Specimen label: Prostate and seminal vesicles Specimen fixation: Formalin Specimen type: Radical Prostatectomy Specimen Weight: 75 grams Specimen Size: The prostate measures 5.0 cm owck-io-kbqg, 5.1 cm iifvezox-nq-hsvlts ior, and 7.3 cm rrea-dx-fdnym. The left seminal vesicle measures 1.5 x [...] cassettes. The prostate is serially sectioned from zhrj-dg-sdku into 9, 5mm slices. Serial sections reveal [...] Cold Time: <1m 06/19/2025 10:43 AM EDT [facility] Note: A resident was involved in the service. I attest I examined the relevant preparations for the specimens and confirmed the diagnosis or interpretation. 06/19/2025 10:43 AM EDT [facility] Tissue Topography unknown / Unknown 06/12/2025 6:07 PM EDT 06/13/2025 8:11 AM EDT Comment:Pre-op diagnosis: PROSTATE CANCER Lymph node tissue specimen (specimen) Topography unknown / Unknown 06/12/2025 6:08 PM EDT 06/13/2025 8:11 AM EDT Comment:Pre-op diagnosis: PROSTATE CANCER us Dyllan Paul MD LAB PATHOLOGY ORDERABLES Francia l Result [facility] [address] [place] [address] * Peripheral IV (06/12/2025 3:17 PM EDT) Narrative Reyna Houston MD - 06/12/2025 3:17 PM EDT Reyna Houston MD 06/12/2025 4:40 PM Peripheral IV Placement Needle size: 18 G Location: arm Site prep: alcohol Technique: anatomical landmarks us Reyna Houston MD ANESTHESIA ORDERABLES Final R esult * MT AN ELECTIVE ENDOTRACHEAL AIRWAY, PB ANESTHESIA PLACEHOLDER [...] Antibody Negative Negative 03/28/2025 7:51 AM EDT [facility] Blood Venous blood specimen / Unknown Venipuncture / Unknown 03/28/2025 6:34 AM EDT 03/28/2025 7:08 AM EDT us Marco Joiner MD LAB BLOOD ORDERABLES Final Resul t [facility] [address] [place] [address] from Last 3 Months or Most Recently Relevant to Health Maintenance Additional Health Concerns Active Problems Noted Date Diagnosed Date Autogenerated Problem 08/01/2025 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 Insurance MEDICARE ANTH MEDICARE Advance Directives Documents on File Type Date Recorded Patient Drawer Maker Expl anation Advance Directives and Living Will [...] updated to appropriate status: Yes Care Teams Network Control Operator Relationship Specialty Start Date End Date Murray Prajapati MD [address] [place] [id number] PCP - General 03/06/23 Jaja Camara APRN [address] [place] [facility] [address] [place] [id number] Referring Physician Gastroenterology 03/06/23 Dyllan Paul MD [id number] [place] [address] Surgeon Urology 04/29/25 Wendy Card LPN VALUE-BASED TRANSFORMATION PROGRAM TCM Nurse 07/07/25
--- OUTSIDE RECORDS SUMMARY | 2025-08-15 10:15 | XMS_ITS | Encounter Summary ---
Author Organization [facility] Address [address] [place] [address] Care Team Providers Care Major Donor Coordinator Name Role Phone Murray Prajapati MD Primary Care Provider [phone] Jaja Camara PLATE GLASS POLISHER Unavailable [phone] Dyllan Paul MD Unavailable Encounter Details Date Type Department Care Team [...] any time in the past 12 m [facility], were you homeless or living in [...] drink first t rafy in the morning (EYE-XEROX MACHINE ASSEMBLER) to steady your nerves or to get [...] 9:00 AM EDT Office Visit [facility] Nephrology, Bone & Mineral Metabolism [address], [address] [place] [address] Kathia Watkins MD [address] [place] [address] 08/28/2025 7:30 AM EDT Hospital Encounter [facility] [address] [place] [address] Dyllan Paul MD [address] [place] [address] 08/28/2025 7:30 AM EDT Anesthesia Event [facility] [address] [place] [address] Paige Starkey, TORREY [address] [place] [address] 08/28/2025 7:30 AM EDT - 08/28/2025 9:15 AM EDT Surgery [facility] [address] [place] [address] Dyllan Paul MD [address] [place] [address] URETEROSCOPY, WITH LASER LITHOTRIPSY [00811 (CPT )] 09/03/2025 9:20 AM EDT Office Visit [facility] [address] [place] [address] Richi Awad MD [address] [place] [address] Scheduled Procedures Name Priority Associated [...] documented as of this encounter Care Teams Major Donor Coordinator Relationship Specialty Start Date End Date Murray Prajapati MD [address] [facility] [address] [place] [address] PCP - General 03/06/23 Jaja Camara APRN [address] [facility] [address] [place] [address] Referring Physician Gastroenterology 03/06/23 Dyllan Paul MD [address] [place] [address] Surgeon Urology 04/29/25 documented as of this encounter
--- OUTSIDE RECORDS SUMMARY | 2025-08-15 10:15 | XMS_ITS | Encounter Summary ---
Author Organization Healthcare Address [address] [facility] [place] [address] Care Team Providers Care Buildings And Grounds Supervisor Name Role Phone Murray Prajapati MD Primary Care Provider [phone] Jaja Camara WHITE GOODS APPLIANCE TECH Unavailable [phone] Dyllan Paul MD Unavailable [phone] Wendy Card GARBAGE WORKER Unavailable Unavaila ble Encounter Details Date Type Department Care Team (Late st Contact Info) Description 07/09/2025 Telephone [facility] [address] [place] [address] Dyllan Paul MD [address] [place] [address] Social History Tobacco Use Types [...] any time in the past 12 m [facility], were you homeless or [...] drink first t rafy in the morning (EYE-STYLE ADVISOR) to steady your nerves or to get rid of a hangover? 0 06/28/2025 CAGE Questionnaire Score 0 025 Utilities Answer Date Recorded In the past 12 months has th e [employer], gas, oil, or water [employer] threatened to shut off services in your [...] optimal time of day to reach caller: [phone] Note: Please do not reply to this message. Follow-up communication and further actions as a result of this message need to be communicated with the patient directly, if the patient is not active onMyChart. If the patient is active on MyChart, they will receive notification of the communication/outcome via [employer]. documented in this encounter Plan of Treatment Upcoming Encounters Date Type Department Care Team (Latest Contact Info) Description 08/22/2025 9:00 AM EDT Office Visit [facility] Nephrology, Bone & Mineral Metabolism [address] [facility] [address] [facility] [address] [facility], [address] [place] [address] Kathia Watkins MD [address] [facility] [address] [place] [address] 08/28/2025 7:30 AM EDT Hospital Encounter [facility] [address] [place] [address] Dyllan Paul MD [address] [address] 08/28/2025 7:30 AM EDT Anesthesia Event [facility] [address] [place] [address] Paige Starkey, TORREY [address] [place] [address] 08/28/2025 7:30 AM EDT - 08/28/2025 9:15 AM EDT Surgery [facility] [address] [place] [address] Dyllan Paul MD [address] [address] URETEROSCOPY, WITH LASER LITHOTRIPSY [[id number] (CPT )] 09/03/2025 9:20 AM EDT Office Visit [facility] [address] [place] [address] Richi Awad MD [address] [place] [address] Scheduled Procedures Name Priority [...] documented as of this encounter Care Teams Buildings And Grounds Supervisor Relationship Specialty Start Date End Date Murray Prajapati MD [address] [facility] [address] [place] [address] PCP - General 03/06/23 Jaja Camara APRN [address] [facility] [address] [place] [address] Referring Physician Gastroenterology 03/06/23 Dyllan Paul MD [address] [address] Surgeon Urology 04/29/25 Wendy Card LPN VALUE-BASED TRANSFORMATION PROGRAM TCM Nurse 07/07/25 documented as of this encounter
--- OUTSIDE RECORDS SUMMARY | 2025-08-15 10:15 | XMS_ITS | Encounter Summary ---
Author Organization [facility] Address [address] [place] [address] Care Team Providers Care Ic Engineer Name Role Phone Murray Prajapati MD Primary Care Provider [phone] Jaja Camara BEAUTY ADVISOR Unavailable [phone] Dyllan Paul MD Unavailable [phone] Wendy Card BOND BROKER Unavailable Unavaila ble Reason for Visit * Reason Onset Date Comments HCN Clinical Concern/Question 07/18/2025 Encounter Details Date Type Department Care Team (Late st Contact Info) Description 07/18/2025 Telephone [facility] [address] [place] [address] Dyllan Paul MD [address] [place] [address] HCN Clinical Concern/Question Social History [...] any time in the past 12 m [facility], were you homeless or living [...] drink first t rafy in the morning (EYE-ROUTE SALESMAN) to steady your nerves or to get [...] - 07/18/2025 8:51 AM EDT I contacted Eebr Lowe by phone at [phone]. Patient has had some blood in his [...] sent a picture of his incision via [employer]the[employer] on 07/16/25. It is located under the [...] optimal time of day to reach caller: [phone] Note: Please do not reply to this message. Follow-up communication and further actions as a result of this message need to be communicated with the patient directly, if the patient is not active onMyChart. If the patient is active on MyChart, they will receive notification of the communication/outcome via [employer]the[employer]. documented in this encounter Plan of Treatment Upcoming Encounters Date Type Department Care Team (Latest Contact Info) Description 08/22/2025 9:00 AM EDT Office Visit [facility] Nephrology, Bone & Mineral Metabolism [address] [facility], [address] [place] [address] Kathia Watkins MD [address] [place] [address] 08/28/2025 7:30 AM EDT Hospital Encounter [facility] [address] [place] [address] Dyllan Paul MD [address] [address] 08/28/2025 7:30 AM EDT Anesthesia Event [facility] [address] [place] [address] Paige Starkey, TORREY [address] [facility] [address] [place] [address] 08/28/2025 7:30 AM EDT - 08/28/2025 9:15 AM EDT Surgery [facility] [address] [place] [address] Dyllan Paul MD [address] [address] URETEROSCOPY, WITH LASER LITHOTRIPSY [[id number] (CPT )] 09/03/2025 9:20 AM EDT [facility] Visit [facility] [address] [place] [address] Richi Awad MD [address] [place] [address] Scheduled Procedures Name Priority Associated [...] documented as of this encounter Care Teams Ic Engineer Relationship Specialty Start Date End Date Murray Prajapati MD [id number] [place] [address] PCP - General 03/06/23 Jaja Camara APRN [address] [facility] [address] [place] [address] Referring Physician Gastroenterology 03/06/23 Dyllan Paul MD [address] [place] [address] Surgeon Urology 04/29/25 Wendy Card LPN VALUE-BASED TRANSFORMATION PROGRAM TCM Nurse 07/07/25 documented as of this encounter
--- OUTSIDE RECORDS SUMMARY | 2025-08-15 10:15 | XMS_ITS | Encounter Summary ---
Author Organization [facility] Address [address] [place] [address] Care Team Providers Care Jacker Feeder Name Role Phone Murray Prajapati MD Primary Care Provider [phone] Jaja Camara LAB AIDE Unavailable [phone] Dyllan Paul MD Unavailable [phone] Marlin Martinez RN Unavailable Unavailable Reason for Visit * Reason Comments Link Encounter Details Date Type Department Care Team (Late st Contact Info) Description 06/30/2025 Patient Outreach POPULATION HEALTH [address], [address] [place] [address] Marlin Martinez, RN HOSPITAL CDU- [...] any time in the past 12 m [facility], were you homeless or [...] drink first t rafy in the morning (EYE-CLIENT BUSINESS MANAGER) to steady your nerves or to [...] AM EDT Office Visit [facility] Nephrology, Bone & Mineral Metabolism [address], [address] [place] [address] Kathia Watkins MD [address] [place] [address] 08/28/2025 7:30 AM EDT Hospital Encounter P[facility] A OPERATING ROOM [address] [place] [address] Dyllan Paul MD [address] [facility] [address] [place] [address] 08/28/2025 7:30 AM EDT Anesthesia Event P[facility] A OPERATING ROOM [address] [place] [address] Paige Starkey APRN [address] [facility] [address] [place] [address] 08/28/2025 7:30 AM EDT - 08/28/2025 9:15 AM EDT Surgery PAV A OPERATING ROOM [address] [place] [address] Dyllan Paul MD [address] [facility] [address] [place] [address] URETEROSCOPY, WITH LASER LITHOTRIPSY [[id number] (CPT )] 09/03/2025 9:20 AM EDT Office Visit [facility] [address] 2[address] [place] [address] Richi Awad MD [address] [place], [place] [id number] Scheduled Procedures Name Priority Associated Diagnoses Date/Ti [...] documented as of this encounter Care Teams Jacker Feeder Relationship Specialty Start Date End Date Murray Prajapati MD [address] [facility] [address] [place] [address] PCP - General 03/06/23 Jaja Camara APRN [address] [place] [address] [place] [address] Referring Physician Gastroenterology 03/06/23 Dyllan Paul MD [address] [facility] [address] [place] [address] Surgeon Urology 04/29/25 Marlin Martinez, RN [facility] CDU- OBSERVATION UNIT Registered Nurse 06/30/25 06/30/25 documented as of this encounter
--- OUTSIDE RECORDS SUMMARY | 2025-08-15 10:15 | XMS_ITS | Encounter Summary ---
Author Organization [facility] Address [address] [place] [address] Care Team Providers Care Pneumatic Tester Mechanic Name Role Phone Murray Prajapati MD Primary Care Provider [phone] Jaja Camara MULTIPLE GAMES DEALER Unavailable [phone] Dyllan Paul MD Unavailable [phone] Encounter Details Date Type Department Care Team [...] time in the past 12 m [facility], were you homeless or living in a [...] drink first t rafy in the morning (EYE-SURFACE WATER TECHNICIAN) to steady your nerves or to [...] 08/22/2025 9:00 AM EDT Office Visit [facility] Nephrology, Bone & Mineral Metabolism [address], [address] [place] [address] Kathia [place] MD [address] [place] [address] 08/28/2025 7:30 AM EDT Hospital Encounter PAV A OPERATING ROOM [address] [place] [address] Dyllan Paul MD [address] [address] 08/28/2025 7:30 AM EDT Anesthesia Event PAV A OPERATING ROOM [address] [place] [address] Paige tSarkey, TORREY [address] [facility] [address] [place] [address] 08/28/2025 7:30 AM EDT - 08/28/2025 9:15 AM EDT Surgery PAV A OPERATING ROOM [address] [place] [address] Dyllan Paul MD [address] [address] URETEROSCOPY, WITH LASER LITHOTRIPSY [[id number] (CPT )] 09/03/2025 9:20 AM EDT Office Visit [place] [facility] [address], [address] [place] [address] Richi Awad MD 800 [place] [address] Scheduled Procedures Name Priority Associated [...] documented as of this encounter Care Teams Pneumatic Tester Mechanic Relationship Specialty Start Date End Date Murray Prajapati MD [address] [facility] [address] [place] [address] PCP - General 03/06/23 Jaja Camara APRN [address] [facility] [address] [place] [address] Referring Physician Gastroenterology 03/06/23 Dyllan Paul MD [address] [address] Surgeon Urology 04/29/25 documented as of this encounter
--- OUTSIDE RECORDS SUMMARY | 2025-08-15 10:15 | XMS_ITS | Encounter Summary ---
Author Organization [facility] Address [address] [place] [address] Care Team Providers Care Internal Medicine Nurse Practitioner Name Role Phone Murray Prajapati MD Primary Care Provider [phone] Jaja Camara BLOCK MACHINE OPERATOR Unavailable [phone] Dyllan Paul MD Unavailable [phone] Wendy Card LPN Unavailable Unavaila ble Reason for Visit * Reason Comments TCM Encounter Details Date Type Department Care Team (Late st Contact Info) Description 07/07/2025 Patient Outreach POPULATION HEALTH [address] [place] [address] Wendy Card LPN VALUE-BASED TRANSFORMATION [...] any time in the past 12 m [facility], were you homeless or living in a [...] drink first t rafy in the morning (EYE-PAPER FEEDER) to steady your nerves or to get [...] to bilateral lower extremities swelling. Action: Sent Aluwave secure chat to provider for clarification on [...] 9:00 AM EDT Office Visit [facility] Nephrology, Bone & Mineral Metabolism [address] [facility], [address] [place] [address] Kathia [place] MD [address] [facility] [address] [place] [address] 08/28/2025 7:30 AM EDT Hospital Encounter PAV A OPERATING ROOM [address] [place] [address] Dyllan Paul MD [address] [address] 08/28/2025 7:30 AM EDT Anesthesia Event PAV A OPERATING ROOM [address] [place] [address] Paige Starkey APRN [address] [facility] [address] [place] [address] 08/28/2025 7:30 AM EDT - 08/28/2025 9:15 AM EDT Surgery PAV A OPERATING ROOM [address] [place] [address] Dyllan Paul MD [address] [address] URETEROSCOPY, WITH LASER LITHOTRIPSY [[id number] (CPT )] 09/03/2025 9:20 AM EDT Office Visit [place] [facility] [address], 2nd [place] [address] Richi Awad MD [address] [place] [address] Scheduled Procedures Name Priority Associated Diagnoses [...] documented as of this encounter Care Teams Internal Medicine Nurse Practitioner Relationship Specialty Start Date End Date Murray Prajapati MD [address] [place] [id number] PCP - General 03/06/23 Jaja Camara APRN [address] [facility] [address] [place] [id number] Referring Physician Gastroenterology 03/06/23 Dyllan Paul MD [address] [address] Surgeon Urology 04/29/25 Wendy Card LPN VALUE-BASED TRANSFORMATION PROGRAM TCM Nurse 07/07/25 documented as of this encounter
--- OUTSIDE RECORDS SUMMARY | 2025-08-15 10:16 | XMS_ITS | Encounter Summary ---
Author Organization [facility] Address [address] [place] [address] Care Team Providers Care Paper Core Machine Operator Name Role Phone Murray Prajapati MD Primary Care Provider [phone] Jaja Camara WREATH MACHINE OPERATOR Unavailable [phone] Dyllan Paul MD Unavailable [phone] Marlin Martinez RN Unavailable Unavailable Wendy Card OINTMENT MILL TENDER Unavailable Unavaila ble Encounter Details Date Type Department Care Team (Late st Contact Info) Description 01/05/2023 Orders Only External Location [address] [place] [address] Provider, External Social History Tobacco [...] 08/22/2025 9:00 AM EDT Office Visit [facility] Nephrology, Bone & Mineral Metabolism [address] [facility], [address] [place] [address] Kathia Watkins MD [address] [facility] [address] [place] [address] 08/28/2025 7:30 AM EDT Hospital Encounter PAV A OPERATING ROOM [address] [place] [address] Dyllan Paul MD [id number] [place] [address] 08/28/2025 7:30 AM EDT Anesthesia Event PAV A OPERATING ROOM [address] [place] [address] Paige Starkey, TORREY [address] [facility] [address] [place] [address] 08/28/2025 7:30 AM EDT - 08/28/2025 9:15 AM EDT Surgery PAV A OPERATING ROOM [address] [place] [address] Dyllan Paul MD [address] [address] URETEROSCOPY, WITH LASER LITHOTRIPSY [[id number] (CPT )] 09/03/2025 9:20 AM EDT Office Visit [place] [facility] [address], 2nd [place] [address] Richi Awad MD 800 [place] [address] Scheduled Procedures Name Priority Associated [...] documented as of this encounter Care Teams Paper Core Machine Operator Relationship Specialty Start Date End Date Murray Prajapati MD [address] [place] [id number] PCP - General 03/06/23 Jaja Camara APRN [address] [place] [address] [place] [id number] Referring Physician Gastroenterology 03/06/23 Dyllan Paul MD [address] [facility] [address] [place] [address] Surgeon Urology 04/29/25 Marlin Martinez, RN [facility] CDU- OBSERVATION UNIT Registered Nurse 06/30/25 06/30/25 Wendy Card LPN VALUE-BASED TRANSFORMATION PROGRAM TCM Nurse 07/07/25 documented as of this encounter
--- OUTSIDE RECORDS SUMMARY | 2025-08-15 10:16 | XMS_ITS | Encounter Summary ---
Author Organization [facility] Address [address] [place] [address] Care Team Providers Care Fountain Helper Name Role Phone Murray Prajapati MD Primary Care Provider [phone] Jaja Camara DRY SANDER Unavailable [phone] Dyllan Paul MD Unavailable [phone] Mralin Martinez RN Unavailable Unavailable Wendy Card SALES FLOOR MANAGER Unavailable Unavaila ble Encounter Details Date Type Department Care Team (Late Contact Info) Description 10/26/2010 Orders Only External Location [address] [place] [address] Provider, External Social History Tobacco [...] Description 08/22/2025 9:00 AM EDT Office Visit [facility] Nephrology, Bone & Mineral Metabolism [address] [facility], [address] [place] [address] Kathia [place] MD [address] [facility] 401 [place] [address] 08/28/2025 7:30 AM EDT Hospital Encounter PAV A OPERATING ROOM [address] [place] [address] Dyllan Paul MD [id number] [place] [address] 08/28/2025 7:30 AM EDT Anesthesia Event PAV A OPERATING ROOM [address] [place] [address] Paige Starkey, DRY SANDER [address] [facility] [address] [place] [address] 08/28/2025 7:30 AM EDT - 08/28/2025 9:15 AM EDT Surgery PAV A OPERATING ROOM [address] [place] [address] Dyllan Paul MD [address] [address] URETEROSCOPY, WITH LASER LITHOTRIPSY [[id number] (CPT )] 09/03/2025 9:20 AM EDT Office Visit [place] [facility] [address], 2[address] [place] [address] Richi Awad MD 800 [place] [address] Scheduled Procedures Name Priority Associated [...] documented as of this encounter Care Teams Fountain Helper Relationship Specialty Start Date End Date Murray Prajapati MD [address] [place] [address] PCP - General 03/06/23 Jaja Camara APRN [address] [place] [address] [place] [address] Referring Physician Gastroenterology 03/06/23 Dyllan Paul MD [address] [place] [address] Surgeon Urology 04/29/25 Marlin Martinez, RN [facility] CDU- OBSERVATION UNIT Registered Nurse 06/30/25 06/30/25 Wendy Card LPN VALUE-BASED TRANSFORMATION PROGRAM TCM Nurse 07/07/25 documented as of this encounter
--- OUTSIDE RECORDS SUMMARY | 2025-08-15 10:16 | XMS_ITS ---
Author Organization [facility] Address [address] [place] [address] Care Team Providers Care Lumber Chain Offbearer Name Role Phone Murray Prajapati MD Primary Care Provider [phone] Jaja Camara THREAT MONITORING ANALYST Unavailable [phone] Dyllan Paul MD Unavailable [phone] Wendy Card HOT BRAIDER Unavailable Unavaila ble Transplant Episode Liver Candidate [facility] ([place], [place]) - [facility] Referred on 03/27/2025 Marked as Ineligible on 06/17/2025 Reason: Substance Abuse Liver CoordinatorCorrie Williamson RN Fax: N/A Email: N/A Scores Score Value Updated Expires Exceptions/Sachi sons CPRA Not available MELD (Calc) 17 07/31/2025 Care Team Name Role Phone Fax Email Corrie Williamson RN Liver Coordinator [phone] N/A N/A Janis Rice Olive Packer [phone] N/A N/A Marco Joiner MD Surgeon [phone] N/A Events Pre-Transplant Referred: 03/27/2025 Committee: 03/31/2025
--- OUTSIDE RECORDS SUMMARY | 2025-08-15 10:16 | XMS_ITS | Encounter Summary ---
Author Organization Healthcare Address [address] [place] [address] Care Team Providers Care Crm Marketing Executive Name Role Phone Murray Prajapati MD Primary Care Provider [phone] Jaja Camara CLINICAL OFFICE TECHNICIAN Unavailable [phone] Dyllan Paul MD Unavailable [phone] Wendy Card PURCHASING ENGINEER Unavailable Unavaila ble Encounter Details Date Type Department Care Team (Late st Contact Info) Description 08/01/2025 Telephone [place] [facility] [address] [place] [address] Dyllan Paul MD [address] [place] [address] Social History Tobacco Use Types [...] in a mcc (including now)? No 07/28/2025 [facility] Utilities Answer Date Recorded In the past 12 months has e [employer], gas, oil, or water company threatened to [...] first t rafy in the morning (EYE-CUSTOMER OPERATIONS REPRESENTATIVE) to steady your nerves or to get [...] of directions and am mailing [facility]. He also knows to expect a call [...] Nephrology, Bone & Mineral Metabolism [address] [facility], [address] [place] [address] Kathia Watkins MD [address] [facility] [address] [place] [address] 08/28/2025 7:30 AM EDT Hospital Encounter PAV A OPERATING ROOM [address] [place] [address] Dyllan Paul MD [address] [place] [address] 08/28/2025 7:30 AM EDT Anesthesia Event PAV A OPERATING ROOM [address] [place] [address] Paige Starkey, CLINICAL OFFICE TECHNICIAN [address] [place] [address] 08/28/2025 7:30 AM EDT - 08/28/2025 9:15 AM EDT Surgery PAV A OPERATING ROOM [address] [place] [address] Dyllan Paul MD [address] [place] [address] URETEROSCOPY, WITH LASER LITHOTRIPSY [[id number] (CPT )] 09/03/2025 9:20 AM EDT Office Visit [place] [facility] [address], 2[address] [place] [address] Richi Awad MD 800 [place] [address] Scheduled Procedures Name Priority Associated Diagnoses Date/Ti me URETEROSCOPY, WITH LASER LITHOTRIPSY Ureteral stone 08/28/2025 7:30 AM EDT documented as of this encounter Goals Goal Patient Goal Type Associated Problems Recent Progress Patient-Stated? Author Autogenerat ed Goal Care Plan Autogenerated Problem No Johnan Quiñones documented as of this encounter Visit [...] documented as of this encounter Care Teams Crm Marketing Executive Relationship Specialty Start Date End Date [place] Prajapati MD [address] [place] [address] [address] [place] [id number] PCP - General 03/06/23 Jaja Camara APRN [address] [place] [address] [place] [address] Referring Physician Gastroenterology 03/06/23 Dyllan Paul MD [address] [place] [address] Surgeon Urology 04/29/25 Wendy Card LPN VALUE-BASED TRANSFORMATION PROGRAM TCM Nurse 07/07/25 documented as of this encounter
--- OUTSIDE RECORDS SUMMARY | 2025-08-15 10:16 | XMS_ITS | Encounter Summary ---
Author Organization Healthcare Address [address] [place] [address] Care Team Providers Care Pipe Puller Name Role Phone Murray Prajapati MD Primary Care Provider [phone] Jaja Camara SYRUP BLENDER Unavailable [phone] Dyllan Paul MD Unavailable [phone] Wendy Card STUDENT RECORDS SPECIALIST Unavailable Unavaila ble Encounter Details Date Type Department Care Team (Late st Contact Info) Description 08/04/2025 Telephone PAV S Anesthesia [address] [place] [address] Lanre Franklin MD [address] [facility] [address] [place] [address] Social History Tobacco Use Types [...] the past 12 m [facility], were you homeless or living in a long-term (including now)? No 07/28/2025 [facility] Utilities Answer Date Recorded In the [...] drink first t rafy in the morning (EYE-MICROBIOLOGY LAB TECHNICIAN) to steady your nerves or to [...] Description 08/22/2025 9:00 AM EDT Office Visit [facility] Nephrology, Bone & Mineral Metabolism [address] [facility], [address] [place] [address] Kathia Watkins MD [address] [facility] [address] [place] [address] 08/28/2025 7:30 AM EDT Hospital Encounter PAV A OPERATING ROOM [address] [place] [address] Dyllan Paul MD [address] [address] 08/28/2025 7:30 AM EDT Anesthesia Event PAV A OPERATING ROOM [address] [place] [address] Paige Starkey, SYRUP BLENDER [address] [place] [address] 08/28/2025 7:30 AM EDT - 08/28/2025 9:15 AM EDT Surgery PAV A OPERATING ROOM [address] [place] [address] Dyllan Paul MD [address] [address] URETEROSCOPY, WITH LASER LITHOTRIPSY [[id number] (CPT )] 09/03/2025 9:20 AM EDT Office Visit [place] [facility] [address], [address] [place] [address] Richi Awad MD [address] [place] [address] Scheduled Procedures Name Priority Associated [...] documented as of this encounter Care Teams Pipe Puller Relationship Specialty Start Date End Date [place] Prajapati MD [address] [facility] [address] [place] [address] PCP - General 03/06/23 Jaja Camara APRN [address] [facility] [address] [place] [address] Referring Physician Gastroenterology 03/06/23 Dyllan Paul MD [address] [place] [address] Surgeon Urology 04/29/25 Wendy Card LPN VALUE-BASED TRANSFORMATION PROGRAM TCM Nurse 07/07/25 documented as of this encounter
--- OUTSIDE RECORDS SUMMARY | 2025-08-15 10:16 | XMS_ITS | Encounter Summary ---
Author Organization [facility] Address [address] [place] [address] Care Team Providers Care Bomb Technician Name Role Phone [place] Prajapati MD Primary Care Provider [phone] Jaja Camara ADVERTISING ACCOUNT REPRESENTATIVE Unavailable [phone] Dyllan Paul MD Unavailable [phone] Wendy Card COSTUME RENTAL CLERK Unavailable Unavaila ble Encounter Details Date Type Department Care Team (Late st Contact Info) Description 08/01/2025 Telephone [facility] Medicine Specialties [address] [place] [address] Lata Leonardo [id number] Social History Tobacco Use Types Packs/Day Years [...] any time in the past 12 m [facility], were you homeless or living in a group home (including now)? No 07/28/2025 [facility] Utilities Answer Date Recorded In the [...] drink first t rafy in the morning (EYE-ELECTRO OPTICS ENGINEER) to steady your nerves or to get [...] encounter Miscellaneous Notes * Telephone Encounter - Orly Frankel RN - 08/11/2025 11:55 AM EDT S/W patient Rescheduled D/C F/U to August with Dr. Awad Sent appt reminder per patient request No questions, thanked me for calling * Telephone Encounter - Orly Frankel RN - 08/07/2025 2:15 PM EDT S/W patient -gave him Dr Singh's message -He has not been seen in our clinic, was a transplant patient and has 11/[address] Aldrich -patient saw his PCP on 08/06/25 and has called his urologist -urology told him to call liver as they believe the fluid is coming from the liver -patient reports that site is currently not leaking but looks like a volcano d/t fluid build up -looked for a soon appt for patient and there are no appts available -informed patient that I would forward his message back to providers that responded. Also advised that he should go to the ER if site starts leaking again and urology cannot help him -verbalized understanding, no further questions * Telephone Encounter - Lata Leonardo - 08/01/2025 3:06 PM EDT Patient's called She states that the incision from his procedure he had done is weeping again She's wondering what he needs to do CB: [phone] documented in this encounter Plan of Treatment Upcoming Encounters Date Type Department Care Team (Latest Contact Info) Description 08/22/2025 9:00 AM EDT Office Visit [facility] Nephrology, Bone & Mineral Metabolism [address] [facility], [address] [place] [address] Kathia Watkins MD [address] [facility] [address] [place] [address] 08/28/2025 7:30 AM EDT Hospital Encounter PAV A OPERATING ROOM [address] [place] [address] Dyllan Paul MD [address] [address] 08/28/2025 7:30 AM EDT Anesthesia Event PAV A OPERATING ROOM [address] [place] [address] Paige Starkey, ADVERTISING ACCOUNT REPRESENTATIVE [address] [place] [address] 08/28/2025 7:30 AM EDT - 08/28/2025 9:15 AM EDT Surgery PAV A OPERATING ROOM [address] [place] [address] Dyllan Paul MD [address] [address] URETEROSCOPY, WITH LASER LITHOTRIPSY [[id number] (CPT )] 09/03/2025 9:20 AM EDT Office Visit [place] [facility] [address] [place] [address] Richi Awad MD 800 [place] [address] Scheduled Procedures Name Priority Associated [...] documented as of this encounter Care Teams Bomb Technician Relationship Specialty Start Date End Date [place] Prajapati MD [address] [facility] [address] [place] [address] PCP - General 03/06/23 Jaja Camara APRN [address] [facility] [address] [place] [address] Referring Physician Gastroenterology 03/06/23 Dyllan Paul MD [id number] [place] [address] Surgeon Urology 04/29/25 Wendy Card LPN VALUE-BASED TRANSFORMATION PROGRAM TCM Nurse 07/07/25 documented as of this encounter
--- OUTSIDE RECORDS SUMMARY | 2025-08-15 10:16 | XMS_ITS ---
Author Organization [facility] Address [address] [place] [address] Care Team Providers Care Dance Critic Name Role Phone Murray Prajapati MD Primary Care Provider [phone] Jaja Camara SPECIAL EDUCATION PARAEDUCATOR Unavailable [phone] Dyllan Paul MD Unavailable [phone] Wendy Card CREATIVE RECRUITER Unavailable Unavaila ble Active Problems * This [...]
--- OUTSIDE RECORDS SUMMARY | 2025-08-15 10:16 | XMS_ITS | Encounter Summary ---
Author Organization [facility] Address [address] [place] [address] Care Team Providers Care Senior Investment Manager Name Role Phone Murray Prajapati MD Primary Care Provider [phone] Jaja Camara CATTLE FARMER Unavailable [phone] Dyllan Paul MD Unavailable [phone] Marlin Martinez RN Unavailable Unavailable Wendy Card MORTICIAN SUPPLIES SALES REPRESENTATIVE Unavailable Unavaila ble Encounter Details Date Type Department Care Team (Late Contact Info) Description 08/24/2010 Orders Only External Location [address] [place] [address] Provider, External Social History Tobacco [...] [facility] [address] [place] [address] Kathia Watkins MD [address] [facility] [address] [place] [address] 08/28/2025 7:30 AM EDT Hospital Encounter P[facility] A OPERATING ROOM [address] [place] [address] Dyllan Paul MD [id number] [place] [address] 08/28/2025 7:30 AM EDT Anesthesia Event [facility] A OPERATING ROOM [address] [place] [address] Paige Starkey, CATTLE FARMER [address] [facility] [address] [place] [address] 08/28/2025 7:30 AM EDT - 08/28/2025 9:15 AM EDT Surgery P[facility] A OPERATING ROOM [address] [place] [address] Dyllan Paul MD [address] [address] URETEROSCOPY, WITH LASER LITHOTRIPSY [[id number] (CPT )] 09/03/2025 9:20 AM EDT [facility] [address] 2[address] [place] [address] Richi Awad MD [address] [place] [address] Scheduled Procedures Name Priority Associated [...] documented as of this encounter Care Teams Senior Investment Manager Relationship Specialty Start Date End Date Murray Prajapati MD [address] [place] [address] PCP - General 03/06/23 Jaja Camara APRN [address] [place] [address] [place] [address] Referring Physician Gastroenterology 03/06/23 Dyllan Paul MD [address] [place] [address] Surgeon Urology 04/29/25 Marlin Martinez, RN [facility] Registered Nurse 06/30/25 06/30/25 Wendy Card LPN VALUE-BASED TRANSFORMATION PROGRAM TCM Nurse 07/07/25 documented as of this encounter
--- OUTSIDE RECORDS SUMMARY | 2025-08-15 10:16 | XMS_ITS | Encounter Summary ---
Author Organization [facility] Address [address] [place] [address] Care Team Providers Care Crystal Grower Name Role Phone Murray Prajapati MD Primary Care Provider [phone] Jaja Camara MANAGER RENEWABLE ENERGY Unavailable [phone] Dyllan Paul MD Unavailable [phone] Wendy Card MACHINE MAINTENANCE REPAIRER Unavailable Unavaila ble Reason for Visit * Reason Onset Date Comments HCN Clinical Concern/Question 07/15/2025 Encounter Details Date Type Department Care Team (Late st Contact Info) Description 07/15/2025 Telephone [facility] [address], 2[address] [place] [address] Dyllan Paul MD [address] [place] [address] HCN Clinical Concern/Question Social History [...] drink first t rafy in the morning (EYE-TRANSITION MANAGER) to steady your nerves or to [...] going to try to send pictures via [employer] of incision site. Crystal RODRIGUEZ consulted. Advised [...] info. Thank you Best contact number: Other: [phone] Optimal time of day to reach caller: ANYTIME Additional comments/information from caller: None Note: Please do not reply to this message. Follow-up communication and further actions as a result of this message need to be communicated with the patient directly, if the patient is not active onMyChart. If the patient is active on MyChart, they will receive notification of the communication/outcome via [employer]. documented in this encounter Plan of Treatment Upcoming Encounters Date Type Department Care Team (Latest Contact Info) Description 08/22/2025 9:00 AM EDT Office Visit [facility] Nephrology, Bone & Mineral Metabolism [address] [facility], [address] [place] [address] Kathia Watkins MD [address] [facility] [address] [place] [address] 08/28/2025 7:30 AM EDT Hospital Encounter PAV A OPERATING ROOM [address] [place] [address] Dyllan Paul MD [address] [facility] [address] [place] [address] 08/28/2025 7:30 AM EDT Anesthesia Event PAV A OPERATING ROOM [address] [place] [address] Paige Starkey, MANAGER RENEWABLE ENERGY [address] [place] [address] 08/28/2025 7:30 AM EDT - 08/28/2025 9:15 AM EDT Surgery PAV A OPERATING ROOM [address] [place] [address] Dyllan Paul MD [address] [facility] [address] [place] [address] URETEROSCOPY, WITH LASER LITHOTRIPSY [[id number] (CPT )] 09/03/2025 9:20 AM EDT [facility] [address], 2[address] [place] [address] Richi Awad MD [address] [place] [address] Scheduled Procedures Name Priority Associated [...] documented as of this encounter Care Teams Crystal Grower Relationship Specialty Start Date End Date Murray Prajapati MD [address] [place] [address] PCP - General 03/06/23 Jaja Camara APRN 1210 [facility] [address] [place] [address] Referring Physician Gastroenterology 03/06/23 Dyllan Paul MD [address] [place] [address] Surgeon Urology 04/29/25 Wendy Card LPN VALUE-BASED TRANSFORMATION PROGRAM TCM Nurse 07/07/25 documented as of this encounter
--- OUTSIDE RECORDS SUMMARY | 2025-08-15 10:16 | XMS_ITS | Encounter Summary ---
Author Organization [facility] Address [address] [place] [address] Care Team Providers Care Business Control Specialist Name Role Phone Murray Prajapati MD Primary Care Provider [phone] Jaja Camara BEAM WORKER Unavailable [phone] Dyllan Paul MD Unavailable [phone] Wendy Card PHYSICIAN/ALLERGY/IMMUNOLOGY Unavailable Unavaila ble Encounter Details Date Type [...] any time in the past 12 m [facility], were you homeless or living in [...] drink first t rafy in the morning (EYE-PROPELLER DRIVEN AIRPLANE MECHANIC) to steady your nerves or to [...] Description 08/22/2025 9:00 AM EDT Office Visit [facility] Nephrology, Bone & Mineral Metabolism [address] [facility], [address] [place] [address] Kathia Watkins MD [address] [facility] [address] [place] [address] 08/28/2025 7:30 AM EDT Hospital Encounter PAV A OPERATING ROOM [address] [place] [address] Dyllan Paul MD [address] [place] [address] 08/28/2025 7:30 AM EDT Anesthesia Event PAV A OPERATING ROOM [address] [place] [address] Paige Starkey, TORREY [address] [place] [address] 08/28/2025 7:30 AM EDT - 08/28/2025 9:15 AM EDT Surgery PAV A OPERATING ROOM [address] [place] [address] Dyllan Paul MD [address] [facility] [address] [place] [address] URETEROSCOPY, WITH LASER LITHOTRIPSY [[id number] (CPT )] 09/03/2025 9:20 AM EDT Office Visit [facility] Medicine Specialties [address], 2[address] [place] [address] Richi Awad MD [address] [place] [address] Scheduled Procedures Name Priority Associated [...] documented as of this encounter Care Teams Business Control Specialist Relationship Specialty Start Date End Date Murray Prajapati MD [facility] [place] [address] PCP - General 03/06/23 Jaja Camara APRN 1210 [facility] [address] [place] [address] Referring Physician Gastroenterology 03/06/23 Dyllan Paul MD [address] [place] [address] Surgeon Urology 04/29/25 Wendy Card LPN VALUE-BASED TRANSFORMATION PROGRAM TCM Nurse 07/07/25 documented as of this encounter
--- OUTSIDE RECORDS SUMMARY | 2025-08-15 10:16 | XMS_ITS | Encounter Summary ---
Author Organization [facility] Address [address] [place] [address] Care Team Providers Care Filling Station Equipment Mechanic Name Role Phone Murray Prajapati MD Primary Care Provider [phone] Jaja Camara INSTANT POTATO PROCESSOR Unavailable [phone] Dyllan Paul MD Unavailable [phone] Wendy Card LPN Unavailable Unavaila ble Reason for Visit * Reason Comments TCM Encounter Details Date Type Department Care Team (Late st Contact Info) Description 08/04/2025 Patient Outreach [facility] [address], [address] [place] [address] Wendy Card LPN VALUE-BASED TRANSFORMATION [...] time [facility] the [facility] or living in a penitentiary (including now)? No 07/28/2025 [facility] Utilities Answer Date Recorded In the [...] drink first t rafy in the morning (EYE-LOW ALTITUDE AIR DEFENSE OFFICER) to steady your nerves or to [...] Medicine Discharge Diagnosis: LALITA (acute kidney injury) ([facility]) 08/04/2025 TCM call # 1 Patient Reached: [...] Description 08/22/2025 9:00 AM EDT Office Visit [facility] Nephrology, Bone & Mineral Metabolism [address] [facility], [address] [place] [address] Kathia Watkins MD [address] [place] [address] 08/28/2025 7:30 AM EDT Hospital Encounter PAV A OPERATING ROOM [address] [place] [address] Dyllan aPul MD [address] [place] [address] 08/28/2025 7:30 AM EDT Anesthesia Event PAV A OPERATING ROOM [address] [place] [address] Paige Starkey, INSTANT POTATO PROCESSOR [address] [facility] [address] [place] [address] 08/28/2025 7:30 AM EDT - 08/28/2025 9:15 AM EDT Surgery PAV A OPERATING ROOM [address] [place] [address] Dyllan Paul MD [address] [address] URETEROSCOPY, WITH LASER LITHOTRIPSY [[id number] (CPT )] 09/03/2025 9:20 AM EDT Office Visit [facility] [address], [address] [place] [address] Richi Awad MD [address] [place] [address] Scheduled Procedures Name Priority Associated Diagnoses [...] documented as of this encounter Care Teams Filling Station Equipment Mechanic Relationship Specialty Start Date End Date Murray Prajapati MD [address] [place] [address] PCP - General 03/06/23 Jaja Camara APRN 1210 [facility] [address] [place] [address] Referring Physician Gastroenterology 03/06/23 Dyllan Paul MD [id number] [place] [address] Surgeon Urology 04/29/25 Wendy Card LPN VALUE-BASED TRANSFORMATION PROGRAM TCM Nurse 07/07/25 documented as of this encounter
--- OUTSIDE RECORDS SUMMARY | 2025-08-15 10:16 | XMS_ITS | Encounter Summary ---
Author Organization [facility] Address [address] [place] [address] Care Team Providers Care Clothing Busheler Name Role Phone Murray Prajapati MD Primary Care Provider [phone] Jaja Camara WEATHERIZATION AND HOUSING INSPECTOR Unavailable [phone] Dyllan Paul MD Unavailable [phone] Wendy Card MARKETING INFORMATION ANALYST Unavailable Unavaila ble Encounter Details Date [...] drink first t rafy in the morning (EYE-RACE STARTER) to steady your nerves or to get rid of a hangover? 0 07/26/2025 CAGE Questionnaire Score 0 025 Utilities Answer Date Recorded In the past 12 months has th e [employer], gas, oil, or water company threatened to [...] Description 08/22/2025 9:00 AM EDT Office Visit [facility] Nephrology, Bone & Mineral Metabolism [address] [facility], [address] [place] [address] Kathia Watkins MD [address] [facility] [address] [place] [address] 08/28/2025 7:30 AM EDT Hospital Encounter PAV A OPERATING ROOM [address] [place] [address] Dyllan Paul MD [address] [place] [address] 08/28/2025 7:30 AM EDT Anesthesia Event PAV A OPERATING ROOM [address] [place] [address] Paige Starkey, TORREY [address] [place] [address] 08/28/2025 7:30 AM EDT - 08/28/2025 9:15 AM EDT Surgery PAV A OPERATING ROOM [address] [place] [address] Dyllan Paul MD [address] [facility] [address] [place] [address] URETEROSCOPY, WITH LASER LITHOTRIPSY [[id number] (CPT )] 09/03/2025 9:20 AM EDT Office Visit [facility] Medicine Specialties [address], 2[address] [place] [address] Richi Awad MD [address] [place] [address] Scheduled Procedures Name Priority Associated [...] documented as of this encounter Care Teams Clothing Busheler Relationship Specialty Start Date End Date Murray Prajapati MD [address] [place] [address] PCP - General 03/06/23 Jaja Camara APRN 1210 [facility] [address] [place] [address] Referring Physician Gastroenterology 03/06/23 Dyllan Paul MD [address] [facility] [address] [place] [address] Surgeon Urology 04/29/25 Wendy Card LPN VALUE-BASED TRANSFORMATION PROGRAM TCM Nurse 07/07/25 documented as of this encounter
--- OUTSIDE RECORDS SUMMARY | 2025-08-15 10:16 | XMS_ITS | Encounter Summary ---
Author Organization [facility] Address [address] [place] [address] Care Team Providers Care Senior Product Manager Name Role Phone Murray Prajapati MD Primary Care Provider [phone] Reason for Visit * Auth/Cert Specialty Diagnoses / Procedures Referred By Silverio barone Referred To Contact Procedures AR LAPS SURG [id number] RPBIC RAD W/NRV SPARING ROBOT AR LAPS SURG BILATERAL TOTAL PELVIC LMPHADECTOMY ROBOTIC PROSTATECTOMY WITH NODES Referral ID Status Reason Start Date Expiration Date Visits Re quested Visits Authorized [id number] 1 1 Encounter Details Date Type Department Care Team (Late st Contact Info) Description 06/03/2025 Hospital Encounter [facility] OR [address] [place] [address] Jayme Pereyra Jr., MD [address] [facility] [address] [place] [address] Social History Tobacco Use Types Packs/Day Years [...] as of this encounter Care Teams Senior Product Manager Relationship Specialty Start Date End Date Murray Prajapati MD [facility] [address] [place] [address] PCP - General Internal Medicine 05/29/24 documented as of this encounter
--- OUTSIDE RECORDS SUMMARY | 2025-08-15 10:16 | XMS_ITS | Encounter Summary ---
Author Organization [facility] Address [address] [place] [address] Care Team Providers Care Outside Physical Damage Appraiser Name Role Phone Murray Prajapati MD Primary Care Provider [phone] Jaja Camara UNIFIED COMMUNICATIONS ARCHITECT Unavailable [phone] Dyllan Paul MD Unavailable [phone] Wendy Card LPN Unavailable Unavaila ble Reason for Visit * Reason Comments TCM Encounter Details Date Type Department Care Team (Late st Contact Info) Description 08/04/2025 Patient Outreach [facility] [address] [place] [address] Wendy Card LPN VALUE-BASED TRANSFORMATION [...] in a detention (including now)? No 07/28/2025 [facility] Utilities Answer Date Recorded In [...] first t rafy in the morning (EYE-MANAGER DIALYSIS) to steady your nerves or to get [...] Metabolism [address], [address] [place] [address] Kathia Watkins MD [address] [place] [address] 08/28/2025 7:30 AM EDT Hospital Encounter PAV A OPERATING ROOM [address] [place] [address] Dyllan Paul MD [address] [facility]00 [place] [address] 08/28/2025 7:30 AM EDT Anesthesia Event PAV A OPERATING ROOM [address] [place] [address] Paige Starkey, TORREY [address] [place] [address] 08/28/2025 7:30 AM EDT - 08/28/2025 9:15 AM EDT Surgery PAV A OPERATING ROOM [address] [place] [address] Dyllan Paul MD [address] [place] [address] URETEROSCOPY, WITH LASER LITHOTRIPSY [[id number] (CPT )] 09/03/2025 9:20 AM EDT Office Visit [facility] Medicine Specialties [address] 2[address] [place] [address] Richi Awad MD [address] [place] [address] Scheduled Procedures Name Priority Associated Diagnoses Date/Ti [...] as of this encounter Care Teams Outside Physical Damage Appraiser Relationship Specialty Start Date End Date Murray Prajapati MD [address] [facility] [address] [place] [address] PCP - General 03/06/23 Jaja Camara APRN 1210 [facility] [address] [place], [place] [address] Referring Physician Gastroenterology 03/06/23 Dyllan Paul MD [address] [place] [address] Surgeon Urology 04/29/25 Wendy Card LPN VALUE-BASED TRANSFORMATION PROGRAM TCM Nurse 07/07/25 documented as of this encounter
--- OUTSIDE RECORDS SUMMARY | 2025-08-15 10:17 | XMS_ITS | Encounter Summary ---
Author Organization Healthcare Address [address] [place] [address] Care Team Providers Care Tie Binder Name Role Phone Murray Prajapati MD Primary Care Provider [phone] MAGISTRATE Unavailable [phone] Dyllan Paul MD Unavailable [phone] Wendy Card BIODIESEL PRODUCTION ASSOCIATE Unavailable Unavaila ble Encounter Details Date Type Department Care Team (Late st Contact Info) Description 07/25/2025 Orders Only External Location [address] [place] [address] Provider, External Social History Tobacco Use Types [...] time in the past [address] [facility], were you homeless or living in a [facility] (including now)? No 07/28/2025 [facility] Utilities Answer Date Recorded In the [...] first t rafy in the morning (EYE-DIRECTOR OF BLOOD) to steady your nerves or to get [...] 1 Month) No 07/29/2025 4:00 AM EDT Lait Gerber R N 6. Suicidal Behavior (Lifetime) No 4:00 AM EDT Liat Gerber RN documented as of this encounter Plan of Treatment Upcoming Encounters Date Type Department Care Team (Latest Contact Info) Description 08/22/2025 9:00 AM EDT Office Visit [facility] Nephrology, Bone & Mineral Metabolism [address] [facility], [address] [place] [address] Kathia Watkins MD [address] [facility] [address] [place] [address] 08/28/2025 7:30 AM EDT Hospital Encounter PAV A OPERATING ROOM [address] [place] [address] Dyllan Paul MD [address] [facility] [address] [place] [address] 08/28/2025 7:30 AM EDT Anesthesia Event PAV A OPERATING ROOM [address] [place] [address] Paige Starkey, TORREY [address] [place] [address] 08/28/2025 7:30 AM EDT - 08/28/2025 9:15 AM EDT Surgery PAV A OPERATING ROOM [address] [place] [address] Dyllan Paul MD [address] [facility] [address] [place] [address] URETEROSCOPY, WITH LASER LITHOTRIPSY [[id number] (CPT )] 09/03/2025 9:20 AM EDT Office Visit [facility] [address] [place] [address] Richi Awad MD [address] [place] [address] Scheduled Procedures Name Priority Associated Diagnoses Date/Ti [...] documented as of this encounter Care Teams Tie Binder Relationship Specialty Start Date End Date Murray Prajapati MD 1210 [facility] [address] [place] [address] PCP - General 03/06/23 Jaja Camara APRN 1210 [facility] [address] [place] [address] Referring Physician Gastroenterology 03/06/23 Dyllan Paul MD [address] [address] Surgeon Urology 04/29/25 Wendy Card LPN VALUE-BASED TRANSFORMATION PROGRAM TCM Nurse 07/07/25 documented as of this encounter
--- OUTSIDE RECORDS SUMMARY | 2025-08-15 10:17 | XMS_ITS ---
Author Organization [facility] Address [address] [place] [address] Care Team Providers Care Handbook Writer Name Role Phone Murray Prajapati MD Primary Care Provider [phone] Jaja Camara [employer] INTERNSHIP Unavailable [phone] Dyllan Paul MD Unavailable [phone] Wendy Card LPN Unavailable Unavaila ble Transitional Care Management Status:Active (Active) Start date:08/04/2025 Enrollment date:08/04/2025 Enrollment reason:Identified using hospital discharge data Overview This episode type is for outpatient care managers enrolling patients in the [facility] Transitional Care Management program. Case Team Name Relationship Phone Wendy Card LPN(Responsible Staff) [facility] Nu rse Continued Care and Services Coordination
--- OUTSIDE RECORDS SUMMARY | 2025-08-15 10:17 | XMS_ITS | Encounter Summary ---
Author Organization Healthcare Address [address] [place] [address] Care Team Providers Care Tailer Off Name Role Phone Murray Prajapati MD Primary Care Provider [phone] Jaja Camara ASSIGNMENT MANAGER Unavailable [phone] Dyllan Paul MD Unavailable [phone] Wendy Card STOCK LAYER Unavailable Unavaila ble Encounter Details Date Type Department Care Team (Late st Contact Info) Description 07/25/2025 Orders Only External Location [address] [place] [address] Provider, External Social History Tobacco Use Types [...] in the past [address] [facility], were you homeless or living in a fci (including now)? 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) to steady your nerves or to get [...] Nephrology, Bone & Mineral Metabolism [address] [facility], [address] [place] [address] Kathia Watkins MD [address] [facility] [address] [place] [address] 08/28/2025 7:30 AM EDT Hospital Encounter PAV A OPERATING ROOM [address] [place] [address] Dyllan Paul MD [address] [facility] [address] [place] [address] 08/28/2025 7:30 AM EDT Anesthesia Event PAV A OPERATING ROOM [address] [place] [address] Paige Starkey, TORREY [address] [place] [address] 08/28/2025 7:30 AM EDT - 08/28/2025 9:15 AM EDT Surgery PAV A OPERATING ROOM [address] [place] [address] Dyllan Paul MD [address] [facility] [address] [place] [address] URETEROSCOPY, WITH LASER LITHOTRIPSY [[id number] (CPT )] 09/03/2025 9:20 AM EDT Office Visit [facility] [address] 2[address] [place] [address] Richi Awad MD [address] [place], [place] [address] Scheduled Procedures Name Priority Associated Diagnoses Date/Ti [...] documented as of this encounter Care Teams Tailer Off Relationship Specialty Start Date End Date Murray Prajapati MD 1210 [facility] [address] [place] [address] PCP - General 03/06/23 Jaja Camara APRN 1210 [facility] [address] [place] [address] Referring Physician Gastroenterology 03/06/23 Dyllan Paul MD [address] [facility] [address] [place] [address] Surgeon Urology 04/29/25 Wendy Card LPN VALUE-BASED TRANSFORMATION PROGRAM TCM Nurse 07/07/25 documented as of this encounter
--- NOTE | 2025-08-15 10:31 | CT_ITS ---
FINAL REPORT TECHNIQUE: Thin section axial images were obtained from skull base to vertex without contrast. Coronal reconstruction images were obtained from the axial data. Exam was performed using dose reduction techniques such as automated exposure control, adjustment of the mA and kV according to patient size, and use of iterative reconstruction technique. CLINICAL HISTORY: Left sided weakness possible stroke FINDINGS: There is right to left midline shift of 13 mm. There is a large mixed density right subdural hematoma with an acute component. This measures 19mm at greatest thickness. There is likely subfalcine herniation of the medial right frontal lobe. In addition, there are unusual loculated, mixed density, extra-axial collections on the right. The largest measures 4.8 cm. The posterior fossa is without acute abnormality. No acute osseous abnormality is identified. IMPRESSION: Large mixed density right subdural hematoma with an acute component and associated dohmg-dw-gchn midline shift. There is likely subfalcine hernation. Unusual, rounded, extra-axial collections on the right may also be hematomas. Dural metastases are not excluded if this patient has a known primary malignancy. Ordering physician Cristobal Hernandez MD was notified of findings on 08/15/2025 at 12:18 PM Reviewed, Interpreted and Dictated by Katie Pruett MD Transcribed by Dorothea Patricio Authenticated and [facility]
[2025-08-15 10:40] LABS: Hematocrit 35.6 % (42.0-52.0); Hemoglobin 12.1 g/dL (14.1-18.0); Immature Granulocytes % 0.2 %; Mean Corpuscular HGB Conc 34.0 g/dL (31.8-35.4); Mean Corpuscular Hemoglobin 30.9 pg (27.0-31.2); Mean Corpuscular Volume 90.8 fl (80-94); Nucleated Red Blood Cells % 0 %; Platelet Count 106 K/mm3 (142-424); Red Blood Count 3.92 M/mm3 (4.60-6.20); Red Cell Distribution Width-SD 54.0 fL; White Blood Count 9.2 K/mm3 (4.8-10.8)
[2025-08-15 10:44] LABS: Alanine Aminotransferase 59 U/L (12-78); Albumin Level 3.1 g/dl (3.5-5.0); Albumin/Globulin Ratio 1.3 (1.1-1.8); Alkaline Phosphatase 159 U/L (38-126); Aspartate Amino Transferase 100 U/L (17-59); Bilirubin,Total 3.0 mg/dl (0.2-1.3); Blood Urea Nitrogen 16 mg/dl (9-20); Calcium 8.6 mg/dl (8.4-10.2); Carbon Dioxide 24 mmol/L (22.0-30.0); Chloride 102 mmol/L (98-107); Creatinine Clearance Estimated 75 mL/min (50-200); Creatinine,Serum 1.30 mg/dl (0.66-1.25); Estimated Glomerular Filt Rate 55 ml/min (>60); GFR (African American) 66 ML/MIN (>60); Globulin 2.3 g/dL (1.3-3.2); Glucose 130 mg/dl (74-100); Sodium 136 mmol/L (136-145); Total Protein,Serum 5.4 g/dl (6.3-8.2)
[2025-08-15 10:47] LABS: INR 1.85 (0.9-1.1); Prothrombin Time 19.6 seconds (10.1-12.5)
[2025-08-15 10:56] LABS: Troponin I 0.02 ng/ml (0.00-0.034)
[2025-08-15 11:00] LABS: Anion Gap 13.1 mEq/L (5-15)
[2025-08-15 11:01] LABS: Potassium 3.1 mmoL/L (3.5-5.1)
--- NOTE | 2025-08-15 11:02 | PC.NURSE ---
[facility] sent and spoke with respiratory
[2025-08-15 11:10] LABS: VBG HCO3 23.6 mmol/L (23-30); VBG PCO2 33.9 mmol/L (35-51); VBG PH 7.46 mmol/L (7.31-7.41); VBG PO2 63.0 mmol/L (28-40)
[2025-08-15 11:12] LABS: Lactate Venous 3.3 mmol/L (0.4-2.0)
[2025-08-15 11:15] LABS: Thyroid Stimulating Hormone 2.36 uIU/mL (0.465-4.68)
[2025-08-15 11:24] LABS: Free T4 (Free Thyroxine) 1.19 ng/dl (0.78-2.19)
--- NOTE | 2025-08-15 11:24 | CT_ITS ---
FINAL REPORT TECHNIQUE: Thin section axial images were obtained from the lung bases to the pubic symphysis without IV contrast. Coronal reconstruction images were obtained from the axial data. Exam was performed using dose reduction technique. CLINICAL HISTORY: Abdominal pain, history of prostatectomy/uroliths COMPARISON: 07/25/2025 FINDINGS: There is bilateral lower lobe atelectasis. Liver has a nodular contour consistent with cirrhosis. The gallbladder is absent. The spleen is enlarged but stable. The unenhanced adrenal glands and pancreas are without acute abnormality. There is a nonobstructing right renal stone. Right ureteral stent is unchanged. The proximal aspect of the stent in is again noted in the proximal ureter. There is no evidence of small bowel obstruction. The appendix is not seen. GI tract is without acute abnormality. There is no lymphadenopathy. There is worsening ascites. No acute osseous abnormality is identified. IMPRESSION: Worsening ascites in a patient with cirrhosis and portal hypertension. Otherwise, no new abnormality since recent exam. Reviewed, Interpreted and Dictated by Katie Pruett MD Transcribed by Krys Gómez Authenticated and [facility]
--- NOTE | 2025-08-15 11:28 | HMH.EDGENADL ---
Discharge Plan Disposition Patient Disposition: Xfer Short-Term Hosp Condition: Critical Prescriptions Prescriptions: No Action vitamin E mixed 1,000 unit capsule 1,000 unit PO DAILY Qty: 100 3RF furosemide [Lasix] 40 mg tablet See Rx Instructions PO QAM PRN (Reason: Fluid) Qty: 120 1RF Rx Instructions: 1 or 2 tablets each morning orally PRN; potassium chloride [Klor-Con 10] 10 mEq tablet extended release See Rx Instructions PO DAILY PRN (Reason: Fluid) Qty: 120 1RF Rx Instructions: 1 or 2 orally daily PRN; 1 or 2 orally each morning with as needed furosemide; enoxaparin 120 mg/0.8 mL syringe 120 mg SQ DAILY fluticasone propionate [Flonase Allergy Relief] 50 mcg/actuation spray,suspension 2 spray intranasal BID Qty: 16 3RF Rx Instructions: administer into each nostril lactulose 10 gram/15 mL syrup PO ondansetron 4 mg tablet,disintegrating 4 mg PO Q8H PRN midodrine 10 mg tablet 10 mg PO TID trazodone 50 mg tablet 25 mg PO HS PRN (Reason: insomnia) Qty: 30 1RF atorvastatin [Lipitor] 10 mg tablet 10 mg PO DAILY Qty: 90 1RF Referrals Follow up/Referrals: Murray Prajapati MD [Primary Care Provider, Medical] - See instructions Clinical Impressions Clinical Impression: Subdural hemorrhage, Fall, Decompensated cirrhosis, Elevated INR, Anticoagulated on heparin Stand Alone Forms Stand Alone Forms: Transfer Record - ED Print Language Print Language: Lebanese Discharge ED Provider: Cristobal Hernandez Adult HPI General Chief complaint: Weakness Stated complaint: weakness Time Seen by Provider: 08/15/25 10:20 Mode of Arrival: Wheelchair Source of Information: Patient and Spouse Description of Symptoms (Recalled from ER Triage Doc. by RN): pt noted to have increased weakness on the left side. last known well was @0830 yesterday morning. said he has steadily declined but it worsened yesterday. pt is jaundiced. abd is distended. pitting edema to ble. History of Present Illness HPI narrative: This is a 70-year-old male patient, with past medical history of alcohol use disorder, cirrhosis of the liver, hypertension, hyperlipidemia, current pulmonary emboli on therapeutic lovenox, kidney stones with current indwelling ureteral stent, and recent prostatectomy with resultant surgical site infection, who is presenting to the emergency department today for evaluation of weakness. The patient's states that the patient has had progressive weakness over the course of the last several days. Yesterday morning she noticed an acute worsening of this weakness and the change in character in which she developed focal weakness of the left upper extremity and left lower extremity. His last known normal would be 25 hours ago from the time of arrival. The patient is not experiencing chest pain or shortness of breath, abdominal pain, nausea, or vomiting. His notices that in conjunction with his weakness he has had significant slowing of his mentation and movements. Several hours after the patient's initial presentation I revisited him and his , and during this encounter she disclosed to me that he did have a fall yesterday in his closet and that the patient likely hit his head because the closet is very small. Related Data Home Medications ?Medication ?Instructions ?Recorded ?Confirmed enoxaparin 120 mg/0.8 mL 120 mg SQ DAILY 07/14/25 08/05/25 subcutaneous syringe lactulose 10 gram/15 mL oral syrup g PO 08/05/25 08/05/25 midodrine 10 mg tablet 10 mg PO TID 08/05/25 08/05/25 ondansetron 4 mg disintegrating 4 mg PO Q8H PRN 08/05/25 08/05/25 tablet Previous Rx's ?Medication ?Instructions ?Recorded vitamin E mixed 1,000 unit capsule 1,000 unit PO DAILY liver #100 caps 05/08/24 furosemide 40 mg tablet (Lasix) See Rx Instructions PO QAM PRN 05/15/25 Fluid #120 tabs potassium chloride 10 mEq See Rx Instructions PO DAILY PRN 05/15/25 tablet,extended release (Klor-Con) Fluid #120 tabs atorvastatin 10 mg tablet (Lipitor) 10 mg PO DAILY #90 tabs 05/27/25 fluticasone propionate 50 2 spray intranasal BID #16 grams 08/05/25 mcg/actuation nasal spray,suspension (Flonase Allergy Relief) trazodone 50 mg tablet 25 mg (1/2 x 50 mg) PO HS PRN 08/05/25 insomnia #30 tabs Allergies Allergy/AdvReac Type Severity Reaction Status Date / Time No Known Allergies Allergy Verified 08/05/25 13:10 [facility] Disclaimer: The information contained in this section may have been updated after the patient was seen, as this information can be updated by other users. Medical History (Updated 08/15/25 @ 12:27 by Cristobal Hernandez DO) Diminished hearing Excessive cerumen in left ear canal Fluid level behind tympanic membrane of left ear Eustachian tube dysfunction Impacted cerumen of both ears Surgical History History of prostatectomy Social History Smoking Status: Never smoker second hand exposure: No alcohol intake: current alcohol intake frequency: 0-2 drinks per day substance use type: denies use current occupational status: other Travel in the last 8 weeks?: None household members: spouse housing: house Have you lived/traveled outside [place] in past 30 days?: No Contact w/someone who lives/traveled outside US past 30 days?: No Exposure to someone with infectious disease in past 14 days?: No Do you have a fever (greater than 100.4 F or 38 C)?: No Have you tested positive for COVID-19?: No Exposed to someone with COVID-19 in past 14 days?: No Do you have a sore throat?: No Do you have a cough?: No Do you have any weakness?: Yes Do you have any diarrhea?: No Are you experiencing any unusual bleeding?: No Do you have any muscle aches/pain?: No Do you have any abdominal pain?: No Are you experiencing loss of taste or smell?: No Other Medical History Have you received the Pneumonia Vaccine: No ROS Obtained: Yes Systems reviewed as appropriate & no additional complaints except as documented Physical Exam General General appearance: other (See MDM) Respiratory Respiratory exam: Present other (See MDM) Cardiovascular Cardiovascular exam: Present other (See MDM) Neurological Exam Neurological exam: Present other (See MDM) Medical Decision Making Medical Records Medical records reviewed: Yes I reviewed the patient's medical records. Screening: Per USPSTF and CDC recommendations, given the prevalence of disease in our region, it is our hospital?s policy to screen for HIV and viral Hepatitis for all patients aged 18 and over and those with ongoing risk factors. Juni Inquiry Pt receiving controlled substance: No Juni was queried for this patient: No Vital Signs: 08/15/25 10:00 08/15/25 10:04 08/15/25 12:05 Temperature 97.9 F 98.3 F Temperature Source Oral Pulse Rate 102 H 103 H Pulse Rate [Left] 103 H Respiratory Rate 18 21 17 Blood Pressure 121/82 130/76 Blood Pressure [Right Arm] 121/82 Blood Pressure Mean [Right Arm] 95 02 Sat by Pulse Oximetry 94 L 95 Oxygen Delivery Method Room Air Lab Data Lab Results 08/15/25 09:54: WBC 9.2, RBC 3.92 L, Hgb 12.1 L, Hct 35.6 L, MCV 90.8, MCH 30.9, MCHC 34.0, RDW 16.3, Plt Count 106 L, MPV 12.6 H, Neut % (Auto) 46.7, Lymph % (Auto) 39.5, Vilas % (Auto) 11.9 H, Eos % (Auto) 1.3, Baso % (Auto) 0.4, Neut # (Auto) 4.3, Lymph # (Auto) 3.6, Vilas # (Auto) 1.1 H, Eos # (Auto) 0.1, Baso # (Auto) 0.0, PT 19.6 H, INR 1.85 H, Sodium 136, Potassium 3.1 L, Chloride 102, Carbon Dioxide 24, Anion Gap 13.1, BUN 16, Creatinine 1.30 H, Estimated Creat Clear 75, Estimated GFR 55 L, Est GFR ( Amer) 66, Glucose 130 H, Calcium 8.6, Total Bilirubin 3.0 H, AST 100 H, ALT 59, Alkaline Phosphatase 159 H, Troponin I 0.02, Total Protein 5.4 L, Albumin 3.1 L, Globulin 2.3, Albumin/Globulin Ratio 1.3, Lipase 104, TSH 2.36, Free T4 1.19, HCV Ab NYDIA w/Rflx PCR Qn Negative, HIV Ag/Ab Combo Qual Negative 08/15/25 10:31: VBG pH 7.46 H, VBG pCO2 33.9 L, VBG pO2 63.0 H, VBG HCO3 23.6, VBG Total CO2 24.7, VBG O2 Saturation 91.5 H, VBG Base Excess -0.2, VBG Lactic Acid 3.3 H 08/15/25 09:54 08/15/25 09:54 Orders (Tests/Meds): ED MEDICATIONS Generic Name Dose Route Start Last Admin Trade Name Freq PRN Reason Stop Dose Admin Levetiracetam 2,000 mg/ Sodium 120 mls @ 240 mls/hr 08/15/25 12:08 Chloride IV 08/15/25 12:09 ONCE ONE ORDERS Category Date Time Status CT abdomen pelvis wo con Stat Cat Scan 08/15/25 11:[address] head/brain wo con Stat Cat Scan 08/15/25 10:31 Taken POCUS Point of Care (ER Only) Stat Exams 08/15/25 11:24 Ordered Ammonia Stat Lab 08/15/25 11:24 Ordered CBC w/Auto Diff [Complete Blood Count Auto Diff] Stat Lab 08/15/25 09:54 Completed CMP [Comprehensive Metabolic Panel] Stat Lab 08/15/25 09:54 Completed Free T4 (Free Thyroxine) Stat Lab 08/15/25 09:54 Completed HIV Combo Stat Lab 08/15/25 09:54 Completed Hepatitis C Ab Qual. W/ RFX Stat Lab 08/15/25 09:54 Completed Lipase Stat Lab 08/15/25 09:54 Completed PT INR [Prothrombin Time INR] Stat Lab 08/15/25 09:54 Completed TSH [Thyroid Stimulating Hormone] Stat Lab 08/15/25 09:54 Completed Troponin I Q3H Lab 08/15/25 13:45 Ordered Troponin I Q3H Lab 08/15/25 16:45 Ordered Troponin I Stat Lab 08/15/25 09:54 Completed Urinalysis and Microscopic Stat Lab 08/15/25 10:31 Ordered VBG [Venous Blood Gas] Stat RT 08/15/25 10:31 Completed ECG Data Tracing #1: I reviewed this ECG and interpreted as documented below: EKG personally turbid by me demonstrates sinus tachycardia at a rate of 105 bpm, normal axis, no GA prolongation, narrow QRS, no QTc prolongation. No ST elevation or depression. No overt signs of ischemia or arrhythmia. Medical Decision Narrative: In summary, this is a 70-year-old male patient who is presenting to the emergency department today for evaluation of focal left-sided weakness and slowed mentation with a last known normal time of 25 hours ago. Comorbidities include a past medical history of prostate cancer status post radical prostatectomy with resultant surgical site infection, hypertension, hyperlipidemia, kidney stones with current indwelling ureteral stent, and pulmonary emboli currently on therapeutic Lovenox. On initial evaluation of the patient he has profoundly slowed mentation but is alert and oriented x 4. His heart and lungs are clear to auscultation bilaterally, and he is saturating well on room air. He is tachycardic but hemodynamically stable. He has a mildly distended abdomen with no abdominal tenderness to palpation. He has mild lower extremity pitting edema. Scleral icterus is noted greater in the left eye than the right eye. Differential diagnosis includes intracranial hemorrhage, stroke, large vascular occlusion, pulmonary embolism, ureteral stone, ureteral stent obstruction, acute kidney injury, ACS/MO, electrolyte derangement, hepatic encephalopathy, among others. Labs were personally interpreted by me and demonstrate anemia that is improved from prior, no leukocytosis, thrombocytopenia with a platelet count of 106, and a significant elevation of INR from 1.3 to now 1.85. Venous blood gas shows a low pCO2 consistent with tachypnea. Creatinine is mildly elevated to 1.3. Otherwise labs are largely unremarkable. My initial intention was to obtain a CTA of the head and neck and CT head without contrast to workup the patient for stroke. Additionally, because he was persistently tachycardic and has a recently diagnosed pulmonary embolism for which he is on Lovenox I had also planned to work him up with a CT pulmonary embolism study to ensure that he does not have an increasing pulmonary embolus burden. Additionally in the setting of his recent radical prostatectomy with history of surgical site infection we also planned to obtain a CT scan of the abdomen and pelvis with contrast. Prior to obtaining CT scans, the patient and his had very profound reservations about contrasted CT scans as the patient reportedly has a history of significant acute kidney injury after receiving contrast. Therefore we decided to proceed with a CT Noncon of the head as well as a CT Noncon of the abdomen and pelvis. While the patient was still on the CT table, I was able to view his CT images of the head without contrast. On my interpretation there is multiple loculated appearing subdural hematomas with a mixture of chronic and acute components with significant [id number] midline shift. Based on these findings I have treated the patient with 2 g (20 mg/kg) of Keppra for seizure prophylaxis Based on these findings I had an interactive discussion with the [facility] and spoke with both Dr. Benton and Dr. Stern, who recommended against reversing the patient's Lovenox. They have asked that we treat the patient with DDAVP given his liver dysfunction and thrombocytopenia, but we do not have this medication. The [facility] has graciously agreed to except this patient for transfer for further evaluation and management. On repeat assessment the patient he is still neurologically intact and protecting his airway. He remains hemodynamically stable and tachycardic. I have clarified the patient's CODE STATUS and he insists that he is full code at this time. The patient has been transferred via helicopter ambulance to the [facility] in stable condition. Critical Care Critical Care Time Critical Care Time: Yes Attestation: On 08/15/25, the high probability of a clinically significant, sudden or life threatening deterioration of the following system(s) required my full and direct attention, intervention and personal management. The time I documented below is in addition to time spent performing reported procedures but includes the following listed in this critical care notation. Total Time Total Critical Care Time: 35
[2025-08-15 11:30] LABS: Lipase 104 U/L (23-300)
--- NOTE | 2025-08-15 11:30 | PC.NURSE ---
pts just informed MD that pt had a fall yesterday and is on blood thinners.
--- NOTE | 2025-08-15 11:42 | PC.NURSE ---
weather check per donal
--- NOTE | 2025-08-15 11:44 | PC.NURSE ---
Called for patient transfer per Dr. Hernandez. He is on the phone now.
--- NOTE | 2025-08-15 11:49 | PC.NURSE ---
[facility] has accepted to take the patient to . ETA 22 minutes
[2025-08-15 11:55] LABS: Hepatitis C Ab Qual. W/ RFX NEGATIVE (Negative)
--- NOTE | 2025-08-15 12:01 | PC.NURSE ---
Called for transfer; power shared images
--- NOTE | 2025-08-15 12:17 | PC.NURSE ---
is speaking with a radiologist about the pts scans
[2025-08-15] MEDS: levETIRAcetam 2,000 MG in 0.9 % SODIUM CHLORIDE 100 ML 240 MG IV (12:18)
--- NOTE | 2025-08-15 12:25 | PC.NURSE ---
report called to Veronica @ [facility].
--- NOTE | 2025-08-15 12:30 | PC.NURSE ---
Called [employer] back about the flight. they said that there was miscommunication and they are a 12min ETA. they are going to call back when the lift off.
--- NOTE | 2025-08-15 12:44 | PC.NURSE ---
[facility] just called and said that [facility] was 10 min out
--- NOTE | 2025-08-15 13:05 | PC.NURSE ---
[facility] here to get pt. report given to the nurse.
[2025-08-15 15:12] LABS: Reflex Lactic Add Lactic Reflex
== END 2025-08-15 13:20 | disposition short-term general hospital (02) ==
PROVIDERS: Emergency Provider Student in an Organized Health Care Education/Training Program; PCP Internal Medicine
DX: R53.1 Weakness (principal); R00.0 Tachycardia, unspecified; E87.6 Hypokalemia; R74.02 Elevation of levels of lactic acid dehydrogenase [LDH]; I62.00 Nontraumatic subdural hemorrhage, unspecified; R18.8 Other ascites; K72.90 Hepatic failure, unspecified without coma; Z86.711 Personal history of pulmonary embolism; Z79.01 Long term (current) use of anticoagulants; I10 Essential (primary) hypertension
CPT/HCPCS: 70450; 74176; 80053; 82803; 83690; 84439; 84443; 84484; 85025; 85610; 86803; 87389; 93005; 96374; 99285; 99291; J1953